=== PATIENT | female | born 1975 | race Caucasian/White ===

== ENCOUNTER 2019-05-27 11:26 | Outpatient (CLI) | payer BC, SELFPAY ==
--- NOTE | ~2019-05-27 | XR_ITS ---
EXAMINATION: XR chest 2V EXAM DATE: 05/27/2019 11:50 INDICATION: Pneumonia, unspecified organism. TECHNIQUE: Frontal and lateral projections of the chest obtained and reviewed. Comparison is made to prior examination from 05/12/2019. FINDINGS: Resolution of previously seen left lower lobe pneumonia. The lungs are clear. There are no pleural effusions. The cardiomediastinal silhouette is within normal limits. There is no pneumotho rax suspected. The bones and soft tissues are unremarkable. IMPRESSION: Normal chest x-ray exam. Reviewed, dictated and finalized at location A. 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
== END 2019-05-27 11:27 | disposition home or self-care (01) ==
LOC: ANHIMG 11:33
PROVIDERS: PCP Internal Medicine; Visit Provider Internal Medicine
DX: J18.9 Pneumonia, unspecified organism (principal)
CPT/HCPCS: 71046

== ENCOUNTER 2019-08-10 13:10 | Outpatient (CLI) | payer BC, SELFPAY ==
--- NOTE | ~2019-08-10 | CT_ITS ---
EXAMINATION: CT abdomen pelvis wo con DATE: 08/10/2019 13:39 INDICATION: Flank pain TECHNIQUE: Computed tomography (CT) of the abdomen and pelvis was performed without intravenous contr ast. Automated exposure control and iterative reconstruction technique were employed. Exam dose: 473 .69 mGy-cm total exam DLP. COMPARISON: None. FINDINGS: There are several small nonobstructing left kidney stones. There are multiple nonobstructin g right kidney stones. No ureteral calculus or hydroureteronephrosis. The urinary bladder, uterus and adnexal areas are unremarkable. Normal heart size. No pericardial or pleural effusion. The lung bases are clear of infiltrate or cons olidation. Calcified left hilar nodes and calcified hepatic and splenic granulomas, consistent with o ld granulomatous disease. Small sliding hiatal hernia. The gallbladder is contracted. No bile duct or pancreatic duct dilatation. Approximately 1.5 cm possible hypoattenuating subtle lesion of the anterior aspect of the lower aspec t of the right hepatic lobe is suggested (series 3 image 71; coronal image 47 series 601). Other subt le hepatic lesions cannot be definitively excluded on this limited noncontrast examination. Further e valuation with intravenous contrast material is recommended Normal caliber of the abdominal aorta. There are scattered nonspecific shotty nonenlarged mesenteric lymph nodes. No intraperitoneal or retroperitoneal or pelvic mass lesion or adenopathy or ascites. There are multiple diverticula of the left colon; no CT evidence of diverticulitis. No CT evidence of appendicitis. No bowel obstruction, pneumatosis or intraperitoneal free air. IMPRESSION: Recommend CT examination with IV contrast material for further evaluation to exclude any possible subtle hepatic lesions Bilateral nonobstructing nephrolithiasis; no ureteral calculus or hydroureteronephrosis Diverticulosis of the left colon; no CT evidence of diverticulitis Reviewed, dictated and finalized at [facility]. Reviewed, dictated and finalized at location A. IMPRESSION: Recommend CT examination with IV contrast material for further cheri luation to exclude any possible subtle hepatic lesions Bilateral nonobstructing nephrolithiasis; no ureteral calculus or hydroureteron ephrosis Diverticulosis of the left colon; no CT evidence of diverticulitis
--- NOTE | ~2019-08-10 | XR_ITS ---
XR abdomen/kub 1V DATE: 08/10/2019 13:36 INDICATION: Flank pain TECHNIQUE: AP projection, 2 views COMPARISON: None FINDINGS: The psoas shadows are intact. No visceromegaly is evident. Significant abnormal calcificati on is not evident radiographically. No evidence of bowel obstruction IMPRESSION: Nonspecific abdomen Reviewed, dictated and finalized at [facility] A. Reviewed, dictated and finalized at location A. IMPRESSION: Nonspecific abdomen
== END 2019-08-10 13:11 | disposition home or self-care (01) ==
PROVIDERS: PCP Internal Medicine; Visit Provider Nurse Practitioner Adult Health
DX: R10.9 Unspecified abdominal pain (principal); N20.0 Calculus of kidney; K57.90 Diverticulosis of intestine, part unspecified, without perforation or abscess without bleeding
CPT/HCPCS: 74018; 74176; 87077; 87086; 87088

== ENCOUNTER 2019-09-08 00:58 | Day surgery (SDC) | payer BC, SELFPAY ==
[2019-09-07 09:57] VITALS: BMI 32.3
[2019-09-08] VITALS (8 sets, daily range): BP systolic 110–159; BP diastolic 67–94; PULSE 90–127; RESP 16–20; TEMP 37.3–37.4; O2SAT 94–98
--- NOTE | ~2019-09-08 | XR_ITS ---
XR abdomen/kub 1V DATE: 09/08/2019 12:14 INDICATION: Lithotripsy. Bilateral nephrolithiasis. TECHNIQUE: AP projection, 2 views COMPARISON: 08/10/2019 CT abdomen pelvis noncontrast examination FINDINGS: Faint subtle small bilateral renal calcifications are again suggested. The psoas shadows are intact. No visceromegaly is evident. No evidence of bowel obstruction. Included skeletal structures are unremarkable. IMPRESSION: Bilateral nephrolithiasis Reviewed, dictated and finalized at Location A. Reviewed, dictated and finalized at location A. IMPRESSION: Bilateral nephrolithiasis
--- NOTE | 2019-09-08 12:52 | WPDANESEPPF ---
Anes - Initial Pre Proc Eval Procedure: Operation Date: 09/08/19 14:00 Proposed Procedures p Left Renal Extracorporeal Shock Wave Lithotripsy - Greg Goff MD Date/Time: 09/08/19 12:52 Surgeon: Greg Goff MD Pre Op Diagnosis: Left Kidney Stone Patient Data Age: 44 Gender: F Height: 5 ft 6 in Weight: 90.9 kg Allergies Allergy/AdvReac Type Severity Reaction Status Date / Time No Known Allergies Allergy Verified 09/07/19 09:56 Home Medications Medication Instructions Recorded Confirmed Type bupropion HCl 300 mg 24 hr tablet, 300 mg PO HS 03/09/19 09/07/19 History extended release alprazolam 0.5 mg tablet 0.5 mg PO BID 03/11/19 09/07/19 History azathioprine 100 mg tablet 100 mg PO DAILY 03/11/19 09/07/19 History ondansetron HCl 8 mg tablet 8 mg PO Q8H 03/11/19 09/07/19 History pantoprazole 40 mg tablet,delayed 40 mg PO QAM 03/11/19 09/07/19 History release trazodone 50 mg tablet 100 mg PO HS tablet 03/11/19 09/07/19 History duloxetine 40 mg capsule,delayed 40 mg PO HS 04/23/19 09/07/19 History release ipratropium bromide [Atrovent HFA] 2 puff INHALATION QID #12.9 gm 05/13/19 09/07/19 Rx pregabalin 100 mg capsule 100 mg PO BID #180 cap 06/09/19 09/07/19 Rx alendronate 70 mg tablet See Rx Instructions .ROUTE 08/25/19 09/07/19 Rx .COMPLEX #12 tablet ferrous sulfate 325 mg (65 mg 325 mg PO DAILY #90 tablet 08/31/19 09/07/19 Rx iron) tablet sumatriptan succinate 6 mg/0.5 mL See Rx Instructions .ROUTE 09/03/19 09/07/19 Rx subcutaneous pen injector .COMPLEX #1 ml abatacept [Orencia ClickJect] 500 mg SUBCUT WEEKLY 09/07/19 09/07/19 History cholecalciferol (vitamin D3) 50 mcg PO DAILY 09/07/19 09/07/19 History cyanocobalamin (vitamin B-12) 1,000 mcg PO DAILY 09/07/19 09/07/19 History lubiprostone [Amitiza] 24 mcg PO BID 09/07/19 09/07/19 History potassium citrate 1,620 mg PO BID 09/07/19 09/07/19 History Patient hx anesthesia problems: none Family hx anesthesia problems: none PMFSH Surgical History Surgical History History of colonoscopy History of knee surgery ANUSHA reconstruction. History of lithotripsy x4. History of tonsillectomy Previous section Family History Family History Mother Patient's mother is in good health Family history of arthritis Father Patient's father is in good health Family history of alcoholism Family history of arthritis Family history of obesity Family history of chronic obstructive pulmonary disease Sibling Patient's sister is in good health Patient's brother is in good health Grandparent Family history of Alzheimer's disease Family history of lung cancer Other Family history of attention deficit hyperactivity disorder (ADHD) Social History Social History Smoking status: Former smoker Smoking end date: 04/22/13 Alcohol intake: current Gender identity (if verbalized by the patient): Female Anes - Eval Final PreProcedure Day of Procedure 09/08/19 12:52 Patient weight: obese Heart: regular rate and rhythm Lungs: clear to auscultation Airway: Mallampati scale class II Neurological: alert and oriented Last oral intake: >/= 8 hours ASA classification: III Emergent: no Anesthetic plan: proceed Anesthesia type and monitoring: general LMA and standard monitoring Informed Consent: The patient's anesthetic plan and its attendant risks and benefits were discussed with the patient/family/POA. Questions were solicited and answers provided to the satisfaction of the patient/family/POA.
[2019-09-08] MEDS: LACTATED RINGERS 1,000 ML 30 ML IV CONT (13:00)
[2019-09-08 13:01] LABS: Hematocrit 38.9 % (37.0-47.0); Hemoglobin 12.5 g/dL (12.0-15.0)
[2019-09-08 13:15] LABS: INR 0.9; Prothrombin Time 11.7 Seconds (11.1-14.7)
[2019-09-08 13:16] LABS: Partial Thromboplastin Time 26.8 SECONDS (22.3-36.8)
--- NOTE | 2019-09-08 13:16 | PM.IMHP ---
H&P: HPI History of Present Illness Chief complaint: Left Kidney Stone Narrative: Madalyn Smith is a 44 year old female well known to Dr. Aguiar who is a recurrent stone former. She had call Dr. Aguiar with left flank pain. CT scan reveals some bilateral nonobstructing stones. The stones on the left are in the upper pole calyx. Patient has had similar issues in the past and has been relieved by lithotripsy of the smaller stones. She now presents for further treatment with lithotripsy. They are difficult to see on plain film and as such will require a retrograde pyelogram in order to locate the upper pole calyx. She understands and wishes to proceed Review of Systems Review of Systems: All systems reviewed & are unremarkable except as noted in HPI and below PMFSH Past Medical History Medical History Abdominal pain in female Abnormal serum lipase level Abnormal weight gain Acute cystitis without hematuria Acute diverticulitis Acute non-recurrent pansinusitis Acute shoulder pain Adult idiopathic generalized osteoporosis Age-related osteoporosis with current pathological fracture, unspecified ankle and foot, initial encounter for fracture Anemia Anxiety Arthralgia Arthritis of both knees Bilateral tinnitus Body mass index (bmi) 39.0-39.9, adult (01/12/19) Bone spur of left foot Chronic migraine Chronic narcotic use Chronic pain syndrome Cyst of ovary Diarrhea Dietary counseling and surveillance (08/25/15) Diverticulitis of large intestine without perforation or abscess Diverticulosis of intestine, part unspecified, without perforation or abscess with bleeding Duodenal ulcer Dysphagia Dysuria Meredith-Danlos syndrome Epigastric pain Establishing care with new doctor, encounter for Fatigue Fear of flying Fibromyalgia Gastric ulcer Gastroesophageal reflux disease Generalized abdominal pain Generalized anxiety disorder History of dislocation of knee History of kidney stones Hyperextension deformity of knee Hyperthyroidism Hypokalemia Hypovitaminosis D Immunosuppressed status Impingement syndrome of right shoulder Irregular menses 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 syndrome with constipation 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 diarrhea longterm use of drug Low back pain Low TSH level Luteal cystic ovary disease Microscopic hematuria Migraine, unspecified, not intractable, without status migrainosus Multinodular goiter Muscle weakness of lower extremity Musculoskeletal pain Nausea Nephrolithiasis Nonintractable migraine Osteoarthritis of spine with radiculopathy, lumbar region Other chronic pain Overweight (11/22/16) Pain in both hands Pain of both hip joints Pain of left heel Pneumonia due to infectious organism Polyuria Prepatellar bursitis of both knees Prepatellar bursitis, left knee PUD (peptic ulcer disease) Rheumatoid arthritis of multiple sites with negative rheumatoid factor Rheumatoid arthritis of unspecified site with involvement of other organs and systems Right lower quadrant abdominal pain Swelling Swelling of finger joint of left hand Thyroid nodule Urinary symptom or sign Urinary tract infection without hematuria Weight loss Yeast vaginitis Surgical History Surgical History History of colonoscopy History of knee surgery ANUSHA reconstruction. History of lithotripsy x4. History of tonsillectomy Previous section Family History Family History Mother Patient's mother is in good health Family history of arthritis Father Patient's father is in good health Family history of alcoholism Family history of arthritis Family history of obesity Family history of chronic obstructive pulmonary disease Sibling Patient's sister is in good health Patient's brother is in good health Grandparent Family history of Alzheimer's disease
--- NOTE | 2019-09-08 14:25 | PM.PROC ---
Procedure Note - Detailed Date of procedure: 09/08/19 Pre-op diagnosis: Left Kidney Stone Post-op diagnosis: same Procedure performed: Cystoscopy, left retrograde pyelogram, left renal ESWL Description of procedure: Patient was taken to the operative suite and correctly identified. Once general anesthesia was obtained she brought the leg position and prepped and draped in usual sterile fashion. A 16 Argentine flexible scope was inserted into the bladder. There were no tumors noted. The left ureteral orifice was visualized and a guidewire was inserted all the way up to the kidney. Scope was removed and a [place] was placed over the guidewire. This allowed us to place contrast to visualize the calices of the left kidney. She was then positioned the flat supine position. Patient had 2 stones in the upper lateral calyx. We injected contrast through the [place] to delineate this calyx. The calyx was localized in both planes. One thousand five hundred shocks were given to this area. We then repositioned the patient as she had another stone in the middle pole calyx. One thousand shocks were given to this calyx. She was taken to recovery room in stable condition. She will follow-up with Dr. Aguiar in 10-14 days with a KUB. Anesthesia: GLMA Surgeon: Greg Goff MD Drains: No Packing: No Pathology: none sent Complications: No immediate complications Condition: stable
--- NOTE | 2019-09-08 16:42 | SUR.PHASEII ---
1640: Called in a new prescription for Tramadol to [facility] since Wyatt Deng was out. Dr. Shell jones and RN gave his cell number to the pharmacist.
== END 2019-09-08 17:10 | disposition home or self-care (01) ==
PROVIDERS: Anesthesiology; PCP Internal Medicine; Visit Provider Urology
PROC: (CPT 50590; principal; 2019-09-08 14:00)
DX: N20.0 Calculus of kidney (principal); M81.8 Other osteoporosis without current pathological fracture; D64.9 Anemia, unspecified; F41.9 Anxiety disorder, unspecified; G89.4 Chronic pain syndrome; Q79.60 Ehlers-Danlos syndrome, unspecified; M79.7 Fibromyalgia; K21.9 Gastro-esophageal reflux disease without esophagitis; E05.90 Thyrotoxicosis, unspecified without thyrotoxic crisis or storm; K58.1 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 syndrome with constipation; M06.9 Rheumatoid arthritis, unspecified; Z87.891 Personal history of nicotine dependence; E66.9 Obesity, unspecified; Z68.34 Body mass index [BMI] 34.0-34.9, adult; Z79.891 Long term (current) use of opiate analgesic
CPT/HCPCS: 50590; 36415; 74018; 85014; 85018; 85610; 85730; A9270; C1758; C1769; J0131; J2250; J3010; J7120; Q9966

== ENCOUNTER 2019-11-06 18:48 | Outpatient (CLI) | payer BC, SELFPAY ==
--- NOTE | ~2019-11-06 | XR_ITS ---
EXAMINATION: XR abdomen/kub 1V DATE: 11/06/2019 19:01 INDICATION: Left posterior abdominal pain. TECHNIQUE: A supine view of the abdomen on 2 radiographs was obtained. COMPARISON: CT abdomen and pelvis 08/10/2019 FINDINGS: There are no dilated loops of bowel. There are multiple stones in right kidney measuring up to 3 mm. There is a 3 mm stone in left kidney upper pole. IMPRESSION: 1. Bilateral kidney stones. Reviewed, dictated and finalized at location A. IMPRESSION: 1. Bilateral kidney stones.
== END 2019-11-06 18:49 | disposition home or self-care (01) ==
LOC: ANHIMG 18:51
PROVIDERS: PCP Internal Medicine; Visit Provider Urology
DX: N20.0 Calculus of kidney (principal)
CPT/HCPCS: 74018

== ENCOUNTER 2019-11-11 12:37 | Outpatient (CLI) | payer BC, SELFPAY ==
--- NOTE | ~2019-11-11 | CT_ITS ---
EXAMINATION: CT abdomen pelvis wo con DATE: 11/11/2019 12:59 INDICATION: Bilateral kidney stones. Back pain. TECHNIQUE: Computed tomography (CT) of the abdomen and pelvis was performed without intravenous contr ast. Automated exposure control and iterative reconstruction technique were employed. The dose-length product was 944.07 mGy-cm. COMPARISON: CT abdomen and pelvis 08/10/2019, 03/10/2018 FINDINGS: The visualized portions of the lung bases demonstrate minimal atelectasis. No pleural effus ion. The heart size is normal. No pericardial effusion. There is a chronic 1.5 cm low-attenuation mas s in segment V of the liver, likely benign. Calcifications in the liver and spleen are consistent wit h old granulomatous disease. The gallbladder, pancreas, and adrenal glands are normal. There is bilat eral medullary nephrocalcinosis. There are at least 10 stones in right kidney measuring up to 4 mm. T here is a 1.4 cm cyst in left kidney. There are 4 stones in left kidney measuring up to 2 mm. No hydr onephrosis. There is diverticulosis of the colon without evidence of diverticulitis. There are no dil ated loops of bowel. The appendix is normal. There are no pathologically enlarged lymph nodes. There is no free intraperitoneal fluid. There is a small sliding hiatal hernia. There is mild thoracolumbar spondylosis. IMPRESSION: 1. Small bilateral nonobstructing kidney stones. 2. Small sliding hiatal hernia. Reviewed, dictated and finalized at location A.
== END 2019-11-11 12:38 | disposition home or self-care (01) ==
LOC: ANHIMG 12:40
PROVIDERS: PCP Internal Medicine; Visit Provider Urology
DX: N20.0 Calculus of kidney (principal); K44.9 Diaphragmatic hernia without obstruction or gangrene
CPT/HCPCS: 74176

== ENCOUNTER → 2020-01-14 15:30 | Outpatient (CLI) | payer BC, SELFPAY ==
--- NOTE | ~2020-01-14 | XR_ITS ---
EXAMINATION: XR ankle RT 2V EXAM DATE: 01/14/2020 16:12 INDICATION: No known recent injury provided at this time. Pain of the right ankle. TECHNIQUE: Frontal and lateral projections of the right ankle. There is no prior study for comparis on. FINDINGS: The ankle mortise appears intact. There are no acute right ankle fractures or dislocations identified. There is no subcutaneous gas. The soft tissue is unremarkable. There are no radiopaq ue foreign bodies. IMPRESSION: 1. Unremarkable right ankle exam. Reviewed, dictated and finalized at location G.
--- NOTE | ~2020-01-14 | XR_ITS ---
EXAMINATION: XR ankle LT 2V EXAM DATE: 01/14/2020 16:12 INDICATION: Left ankle gives out. No known recent injury provided at this time. Pain of the left ankl e. History rheumatoid arthritis. TECHNIQUE: Frontal and lateral projections of the left ankle. Correlation is made to left calcaneus exam 01/06/2018. FINDINGS: There is small inferior left calcaneal spur. The ankle mortise appears intact. There are n o acute fractures or dislocations identified. There is no subcutaneous gas. The soft tissue is unre markable. There are no radiopaque foreign bodies. IMPRESSION: Small left calcaneal inferior spur. Reviewed, dictated and finalized at location G.
--- NOTE | ~2020-01-14 | XR_ITS ---
XR knee RT 3V, XR knee LT 3V 01/14/2020 16:12 Indication: Bilateral knee pain Procedure: 3 views of each knee Comparison: No prior studies for comparison. Findings: There is normal alignment. No significant joint space narrowing. No fracture or traumatic m alalignment. No significant joint effusion. No focal soft tissue abnormalities. No foreign bodies. Impression: 1: No significant bone or joint abnormality. Reviewed, dictated and finalized at location A. Impression: 1: No significant bone or joint abnormality. Impression: 1: No significant bone or joint abnormality.
--- NOTE | ~2020-01-14 | XR_ITS ---
EXAMINATION: XR hip BI wo pelvis EXAM DATE: 01/14/2020 16:12 INDICATION: Bilateral hip pain. TECHNIQUE: Each hip imaged independently (separate right and also left hip) 'frog leg' and frontal p rojections for interpretation. Comparison is made to prior examination from 01/15/2016. FINDINGS: No radiographic evidence of hip avascular necrosis. Symmetric hip and sacroiliac joints wi th joint space is maintained. There are no acute fractures or dislocations identified. There is no s ubcutaneous gas. The soft tissue is unremarkable. There are no radiopaque foreign bodies. IMPRESSION: 1. Unremarkable bilateral hip exam. Reviewed, dictated and finalized at location G.
--- NOTE | ~2020-01-14 | XR_ITS ---
EXAMINATION: XR lumbar spine 2-3V EXAM DATE: 01/14/2020 16:12 INDICATION: Low back pain. TECHNIQUE: Lumber spine frontal, lateral, lateral L5-S1 projections for interpretation. There is no prior study for comparison. FINDINGS: The vertebral bodies are aligned in the AP dimension. Vertebral body and disc heights are w ell-maintained. L5 is a transitional partially sacralized segment. There is mild lower lumbar facet a rthropathy. Sacrum, sacroiliac joints, sacral arcuate lines are intact. Paraspinal soft tissue is unr emarkable. No spondylolysis. IMPRESSION: 1. Transitional L5 segment. 2. Mild facet arthropathy. Reviewed, dictated and finalized at location G.
--- NOTE | ~2020-01-14 | XR_ITS ---
EXAMINATION: XR sacroiliac joints min 3V EXAM DATE: 01/14/2020 16:12 INDICATION: No known recent injury provided at this time. Pain of the sacroiliac joints. TECHNIQUE: Frontal, bilateral oblique projections of the sacroiliac joints. There are no prior studi es for comparison. FINDINGS: Sacroiliac joints are symmetric, without erosion or bony productive changes. L5 segment is transitional, partially sacralized. Sacrum, sacroiliac joints, sacral arcuate lines are intact. The soft tissue is unremarkable. Mild lower lumbar facet arthropathy. IMPRESSION: 1. Unremarkable sacroiliac joints. 2. Mild lower lumbar facet arthropathy. Reviewed, dictated and finalized at location G.
== END ==
PROVIDERS: PCP Internal Medicine; Visit Provider Physician Assistant Medical
DX: M25.571 Pain in right ankle and joints of right foot (principal); G89.29 Other chronic pain; M25.572 Pain in left ankle and joints of left foot; M54.9 Dorsalgia, unspecified; M25.559 Pain in unspecified hip; M77.32 Calcaneal spur, left foot
CPT/HCPCS: 72100; 72202; 73521; 73562; 73600

== ENCOUNTER 2020-03-09 08:20 | Outpatient (NON) | payer BC, SELFPAY ==
[2020-03-09 23:47] LABS: SARS-CoV-2 RNA PCR Negative
== END 2020-03-09 08:21 ==
LOC: ANHCOVIDDT 08:22
PROVIDERS: Visit Provider Internal Medicine
DX: Z20.828 Contact with and (suspected) exposure to other viral communicable diseases (principal)
CPT/HCPCS: 87635; C9803; U0003

== ENCOUNTER 2020-03-11 12:10 | Outpatient (CLI) | payer BC, SELFPAY ==
--- NOTE | ~2020-03-11 | XR_ITS ---
EXAMINATION: XR abdomen/kub 1V EXAM DATE: 03/11/2020 12:26 INDICATION: Bilateral kidney stones. TECHNIQUE: Frontal projection of the upper abdomen, frontal projection lower abdomen/pelvis for inter pretation. Comparison is made to prior examination from 03/08/2020. FINDINGS: There is expected amount of colonic stool and gas. No small bowel dilation, nonobstructiv e bowel gas pattern. Stool overlying both renal contours, with some small calcific densities overlyi ng as well, probably small kidney stones. There is no organomegaly suspected. The bones are unrema rkable. There is no free intraperitoneal air. The lung bases are clear. IMPRESSION: Probable persistent small bilateral kidney stones. Reviewed, dictated and finalized at location A. EDURES TECH
== END 2020-03-11 12:11 | disposition home or self-care (01) ==
PROVIDERS: PCP Internal Medicine; Visit Provider Urology
DX: N20.0 Calculus of kidney (principal)
CPT/HCPCS: 74018

== ENCOUNTER 2020-03-13 14:10 | Outpatient (CLI) | payer BC, SELFPAY ==
--- NOTE | ~2020-03-13 | CT_ITS ---
EXAMINATION: CT abdomen pelvis wo con DATE: 03/13/2020 14:27 INDICATION: Left flank pain TECHNIQUE: Computed tomography (CT) of the abdomen and pelvis was performed without intravenous contr ast. Automated exposure control and iterative reconstruction technique were employed. The dose-length product was 506.37 mGy-cm. COMPARISON: 11/11/2019 FINDINGS: Mild bibasilar atelectasis. Heart size is normal. No pericardial or pleural effusion. Small sliding-t ype hiatal hernia. Tiny hepatic calcification and multiple splenic calcified consistent with old gran ulomatous disease. There are couple chronic low-attenuation lesions in segment 5 of the liver measuri ng approximate 1.6 and 1.1 cm which can be seen appeared slightly smaller dating back to 12/11/2014 an d with avid enhancement on MRI dated 11/27/2016 is consistent with a benign etiology including hemangio ma, focal nodular hyperplasia or hepatic adenoma. Pancreas and bilateral adrenal glands are normal. 1 .3 cm left renal cyst. Bilateral nephrolithiasis with 4 stones measuring up to 2 mm and the left kidn ey and 12 stones in the right kidney measuring up to 5 mm. Several tiny focus of increased attenuatio n along the proximal left ureter which could represent a <1 mm stone. No hydronephrosis. Bladder, [place] randy and bilateral adnexa are unremarkable. There is mild colonic diverticulosis with a sigmoid predom inance. There is no adjacent inflammatory change to suggest diverticulitis. No free intraperitoneal gas or fluid. No pathologically enlarged abdominal or pelvic lymphadenopathy. Mild lumbar spondylosis . IMPRESSION: 1. Bilateral nonobstructing nephrolithiasis with no hydronephrosis. Possible <1 mm stone in the proxi mal left ureter. 2. Small sliding-type hiatal hernia. 3. Mild diverticulosis. Reviewed, dictated and finalized at location . 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 Bilateral nonobstructing nephrolithiasis with no hydronephrosis. Possible <1 mm stone in the proximal left ureter. 2. Small sliding-type hiatal hernia. 3. Mild diverticulosis.
== END 2020-03-13 14:11 | disposition home or self-care (01) ==
LOC: ANHIMG 14:12
PROVIDERS: PCP Internal Medicine; Visit Provider Urology
DX: N20.1 Calculus of ureter (principal); N20.0 Calculus of kidney; K44.9 Diaphragmatic hernia without obstruction or gangrene; K57.90 Diverticulosis of intestine, part unspecified, without perforation or abscess without bleeding
CPT/HCPCS: 74176

== ENCOUNTER 2020-03-15 13:00 | Day surgery (SDC) | payer BC, SELFPAY ==
[2020-03-15] VITALS (7 sets, daily range): BP systolic 105–141; BP diastolic 79–96; PULSE 83–93; RESP 10–18; TEMP 36.3–36.6; O2SAT 96–100; BMI 32.3
--- NOTE | ~2020-03-15 | XR_ITS ---
EXAMINATION: XR fluoroscopy no charge DATE: 03/15/2020 17:54 INDICATION: Left ureteral stone extraction. TECHNIQUE: 4 fluoroscopic images of the abdomen and pelvis were obtained during procedure performed jorden Aguiar. Radiologist was not present for the imaging or procedure. The amount of fluoroscopy janina e used during this procedure was 0.4 minutes. COMPARISON: None. FINDINGS: Small amount of scattered gas in the bowels in a normal bowel gas pattern. No renal or ureteral stone s identified with the previously seen stones in the bilateral kidneys likely too small to be visualiz ed fluoroscopically.. IMPRESSION: 1. No evident nephrolithiasis likely due to small size of the previously noted bilateral renal stones and fluoroscopic technique. Correlate with procedure note for further detail. Reviewed, dictated and finalized at location . 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 No evident nephrolithiasis likely due to small size of the previously noted bilateral renal stones and fluoroscopic technique. Correlate with procedure not e for further detail.
--- NOTE | 2020-03-15 13:34 | WPDANESEPPF ---
Anes - Initial Pre Proc Eval Procedure: Operation Date: 03/15/20 16:45 Proposed Procedures p Cystoscopy, Left Ureteroscopy with Stone Extraction - Jorge Aguiar MD Date/Time: 03/15/20 13:34 Surgeon: Jorge Aguiar MD Pre Op Diagnosis: kidney stones Patient Data Age: 44 Gender: F Height: 1.68 m Weight: 91 kg Allergies Allergy/AdvReac Type Severity Reaction Status Date / Time No Known Allergies Allergy Verified 03/15/20 14:48 Home Medications Medication Instructions Recorded Confirmed Type bupropion HCl 300 mg 24 hr tablet, 300 mg PO HS 03/09/19 03/15/20 History extended release alprazolam 0.5 mg tablet 0.5 mg PO BID 03/11/19 03/15/20 History azathioprine 100 mg tablet 100 mg PO BID 03/11/19 03/15/20 History ondansetron HCl 8 mg tablet 8 mg PO Q8H PRN 03/11/19 03/15/20 History pantoprazole 40 mg tablet,delayed 40 mg PO QAM 03/11/19 03/15/20 History release trazodone 50 mg tablet 50 mg PO HS tablet 03/11/19 03/15/20 History duloxetine 40 mg capsule,delayed 40 mg PO HS 04/23/19 03/15/20 History release ferrous sulfate 325 mg (65 mg 325 mg PO DAILY #90 tablet 08/31/19 03/15/20 Rx iron) tablet abatacept [Orencia ClickJect] 500 mg SUBCUT WEEKLY 09/07/19 03/15/20 History cholecalciferol (vitamin D3) 50 mcg PO DAILY 09/07/19 03/15/20 History cyanocobalamin (vitamin B-12) 1,000 mcg PO DAILY 09/07/19 03/15/20 History potassium citrate 1,620 mg PO BID 09/07/19 03/15/20 History tramadol 100 mg PO Q4-6H PRN #20 tablet 09/08/19 03/15/20 Rx pregabalin 100 mg capsule 100 mg PO BID #180 cap 09/22/19 03/15/20 Rx cetirizine 5 mg-pseudoephedrine ER 1 tablet PO Q12H PRN 10/20/19 03/15/20 History 120 mg tablet,extended release,12hr alendronate 700 mg PO WEEKLY 03/15/20 03/15/20 History ciprofloxacin HCl [Cipro] 500 mg PO Q12H 03/15/20 03/15/20 History hydrocodone-acetaminophen 2 tablet PO Q6-8H PRN 03/15/20 03/15/20 History propranolol 10 mg PO Q12H PRN 03/15/20 03/15/20 History sumatriptan succinate [Imitrex 6 mg SUBCUT BID PRN 03/15/20 03/15/20 History STATdose Pen] Patient hx anesthesia problems: none Family hx anesthesia problems: none PMFSH Past Medical History Medical History (Updated 03/15/20 @ 15:12 by Jorge Aguiar MD) Abdominal pain in female Abnormal serum lipase level Abnormal weight gain Acute cystitis without hematuria Acute diverticulitis Acute non-recurrent pansinusitis Acute shoulder pain Adult idiopathic generalized osteoporosis Age-related osteoporosis with current pathological fracture, unspecified ankle and foot, initial encounter for fracture Anemia Anxiety Arthralgia Arthritis of both knees Bilateral tinnitus Body mass index (bmi) 39.0-39.9, adult (01/12/19) Bone spur of left foot Chronic migraine Chronic narcotic use Chronic pain syndrome Cyst of ovary Diarrhea Dietary counseling and surveillance (08/25/15) Diverticulitis of large intestine without perforation or abscess Diverticulosis of intestine, part unspecified, without perforation or abscess with bleeding Duodenal ulcer Dysphagia Dysuria Meredith-Danlos syndrome Epigastric pain Establishing care with new doctor, encounter for Fatigue Fear of flying Fibromyalgia Gastric ulcer Gastroesophageal reflux disease Generalized abdominal pain Generalized anxiety disorder History of dislocation of knee History of kidney stones Hyperextension deformity of knee Hyperthyroidism Hypokalemia Hypovitaminosis D Immunosuppressed status Impingement syndrome of right shoulder Irregular menses 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 syndrome with constipation 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
[2020-03-15] MEDS: LACTATED RINGERS 1,000 ML 30 ML IV CONT (15:24)
[2020-03-15] MEDS: ceFAZolin 2 GM/D5W 50 ML 2 GM/50 ML BAG IVPB (17:15)
[2020-03-15] MEDS: LIDOCAINE HCL 2% GEL UROJET 10 ML PKG MUCOUS MEM (17:48)
[2020-03-15] MEDS: KETOROLAC 30 MG/ML VIAL (*BKC) IV PUSH (17:54)
--- NOTE | 2020-03-15 18:12 | PM.PROC ---
Procedure Note - Detailed Date of procedure: 03/15/20 Pre-op diagnosis: kidney stones Post-op diagnosis: same Procedure performed: Left ureteroscopy with stone extraction Description of procedure: Patient brought to the operatory she has prepped and draped in routine sterile fashion while in dorsal lithotomy position after the uneventful induction of a general LMA anesthetic. Cystoscopy is undertaken with a 19 F rigid cystoscope. Bladder neck and urethra endoscopically normal. The mucosa is normal without hyperemia. There is no intravesical foreign body or neoplasm. She has a single orthotopic ureteral orifice bilaterally. A 0.035 in glidewire was advanced in the left renal pelvis and the distal ureter is dilated with an 8 F 10 F dilator. Left ureteral re-endoscopy is undertaken with a 7.5 F flexible ureteral scope. Her largest, 2-3 mm stone is identified and extracted with a Zero tip disposable stone basket with ease. Two smaller left renal stones are irrigated with high-pressure irrigant, down the ureter and into the bladder. There later evacuated with a cystoscope. The remainder of the kidney was carefully inspected and found to be without additional significant stones. Anesthesia: GLMA Surgeon: Jorge Aguiar MD Estimated blood loss (mL): 0 Drains: No Packing: No Pathology: yes (Left ureteral stone) Complications: No immediate complications Condition: stable Disposition: PACU
[2020-03-15] MEDS: fentaNYL CITRATE INJ (*CRX) 100 MCG/2 ML VIAL 25 MCG IV PUSH ×6 (18:15→19:27)
[2020-03-15] MEDS: oxyCODONE HCL (*CRX) 5 MG TAB IR PO (19:13)
== END 2020-03-15 20:00 | disposition home or self-care (01) ==
PROVIDERS: PCP Internal Medicine; Visit Provider Urology
PROC: (CPT 52352; principal; 2020-03-15 16:45)
DX: N20.1 Calculus of ureter (principal); M81.0 Age-related osteoporosis without current pathological fracture; D64.9 Anemia, unspecified; G89.4 Chronic pain syndrome; Q79.60 Ehlers-Danlos syndrome, unspecified; M79.7 Fibromyalgia; K21.9 Gastro-esophageal reflux disease without esophagitis; F41.1 Generalized anxiety disorder; E05.90 Thyrotoxicosis, unspecified without thyrotoxic crisis or storm; M06.9 Rheumatoid arthritis, unspecified; Z87.891 Personal history of nicotine dependence; E66.9 Obesity, unspecified; Z68.35 Body mass index [BMI] 35.0-35.9, adult
CPT/HCPCS: 52352; 82365; 88300; A9270; C1769; J0690; J1100; J1885; J2250; J2405; J2704; J3010; J7120; Q9966

== ENCOUNTER 2020-06-16 07:31 | Outpatient (CLI) | payer BC, SELFPAY ==
[2020-06-16 08:19] LABS: Cholesterol 256 mg/dL (0-200); HDL Direct 43 mg/dL; Triglycerides 198 mg/dL (<150)
[2020-06-16 08:20] LABS: Add Urine Microscopic? YES; Appearance Urine Clear (Clear); Bacteria Urine Trace /hpf; Bilirubin Urine 1+ (Negative); Blood Urine 2+ (Negative); Color Urine Amber (Yellow); Glucose Urine UA Negative (Negative); Ketones Urine Trace mg/dL (Negative); Leukocyte Esterase Ur 1+ LEU/UL (NEGATIVE); Mucus Urine Moderate /lpf; Nitrate Urine Negative (Negative); Protein Urine 1+ mg/dL (Negative); RBC Urine 21-50 /hpf (0-2); Specific Grav Ur 1.024 (1.001-1.035); Squamous Epithelial Cell Urine Many /hpf (Few)
[2020-06-16 08:30] LABS: LDL Cholesterol Direct 186 mg/dL
[2020-06-16 08:59] LABS: Vitamin D 25 Hydroxy 46.7 ng/mL
[2020-06-16 09:06] LABS: Iron 69 ug/dL (37-170)
[2020-06-16 09:09] LABS: Thyroid Stimulating Hormone 0.495 uIU/mL (0.465-4.680)
[2020-06-16 09:16] LABS: Percent Iron Saturation 21 % (20-50)
[2020-06-16 09:42] LABS: Folic Acid 11.8 ng/mL (2.76->20)
== END 2020-06-16 07:32 | disposition home or self-care (01) ==
PROVIDERS: PCP Internal Medicine; Referring Provider Physician Assistant; Visit Provider Internal Medicine
DX: E61.1 Iron deficiency (principal); R53.83 Other fatigue; E55.9 Vitamin D deficiency, unspecified
CPT/HCPCS: 36415; 80061; 81001; 82306; 82607; 82746; 83540; 83550; 84443; 87086; 87088

== ENCOUNTER 2020-06-24 11:24 | Outpatient (CLI) | payer BC, SELFPAY ==
--- NOTE | ~2020-06-24 | US_ITS ---
EXAMINATION: US thyroid DATE: 06/24/2020 11:52 INDICATION: Nontoxic single thyroid nodule. TECHNIQUE: Multiple ultrasound images of the thyroid were obtained. COMPARISON: Ultrasound 05/21/2017 FINDINGS: The right thyroid lobe measures 4.6 x 2.0 x 1.5 cm. The left thyroid lobe measures 3.9 x 1.5 x 1.6 c m. In the left thyroid lobe, there is an 8 mm solid, hypoechoic, [id number] nodule with smooth margin without echogenic foci (TI-RADS TR4). IMPRESSION: 1. Stable small thyroid nodule, likely not clinically significant. No follow-up is needed. Reviewed, dictated and finalized at location A. HAND
== END 2020-06-24 11:25 | disposition home or self-care (01) ==
PROVIDERS: PCP Internal Medicine; Visit Provider Physician Assistant
DX: E04.1 Nontoxic single thyroid nodule (principal)
CPT/HCPCS: 76536

== ENCOUNTER 2020-06-26 15:37 | Emergency (ER) | payer BC, SELFPAY ==
--- NOTE | ~2020-06-26 | CT_ITS ---
EXAMINATION: CT abdomen pelvis wo con DATE: 06/26/2020 17:18 INDICATION: Flank pain TECHNIQUE: Computed tomography (CT) of the abdomen and pelvis was performed without intravenous contr ast. The dose-length product (DLP) was 494.86 mGy-cm. Automated exposure control and iterative recons truction technique were employed. COMPARISON: 03/13/2020 04/29/2018 FINDINGS: Minimal dependent atelectasis is present in the lung bases. The heart size is normal. Calci fied left hilar lymph nodes are consistent with old granulomatous disease. Punctate calcifications in an otherwise normal spleen also likely represent healed granulomatous disease. A 1.6 cm lesion in th e right hepatic lobe has previously been demonstrated to be a hemangioma. The pancreas, gallbladder, and adrenal glands are normal. There is a 1.7 cm cyst of the left kidney. There are at least six nono bstructing stones of the right kidney which measure up to 4 mm. There is a 2 mm nonobstructing left k idney stone. No stones are identified in the ureters or bladder. There is no hydronephrosis or hydrou reter. No pathologically enlarged abdominal or pelvic lymph nodes are identified. There is no free in traperitoneal gas or evidence of bowel obstruction. There is a 3.8 cm cyst of the left ovary. Colonic diverticulosis is present without evidence of diverticulitis. IMPRESSION: 1. Bilateral nonobstructing nephrolithiasis. Reviewed, dictated and finalized at location A. IMEN TECHNICIAN
[2020-06-26 15:46] VITALS: BP 138/87; PULSE 88; RESP 18; TEMP 36.1; O2SAT 99
[2020-06-26 16:26] LABS: Basophils Absolute Auto 0.1 K/mm3 (0.0-0.1); Basophils Percent Auto 0.9 % (0.2-1.2); Eosinophils Absolute Auto 0.1 K/mm3 (0-0.3); Eosinophils Percent Auto 1.3 % (0-4.4); Hematocrit 42.5 % (37.0-47.0); Hemoglobin 13.8 g/dL (12.0-15.0); Immature Granulocyte Absolute 0.04 K/mm3 (0.00-0.031); Immature Granulocyte Percent A 0.5 % (0-0.5); Lymphocytes Absolute Auto 1.48 K/mm3 (0.9-3.2); Lymphocytes Percent Auto 19.8 % (18.3-44.2); Mean Corpuscular HGB Conc 32.5 g/dl (32-36); Mean Corpuscular Hemoglobin 30.3 pg (26-34); Mean Corpuscular Volume 93.4 fl (80-100); Mean Platelet Volume 9.3 fl (7.4-10.4); Monocytes Absolute Auto 0.4 K/mm3 (0.1-0.6); Monocytes Percent Auto 4.8 % (2.6-8.5); Neutrophils Absolute Auto 5.4 K/mm3 (1.3-6.7); Neutrophils Percent Auto 72.7 % (45.5-73.1); Platelet Count Result 381 k/mm3 (150-375); Red Blood Count 4.55 M/mm3 (4.2-5.4); Red Cell Distribution Width 15.2 % (11.5-14.5); White Blood Count 7.5 K/mm3 (4.5-10.0)
[2020-06-26 16:30] LABS: Add Urine Microscopic? YES; Appearance Urine Clear (Clear); Bilirubin Urine Negative (Negative); Blood Urine 1+ (Negative); Color Urine Yellow (Yellow); Glucose Urine UA Negative (Negative); Ketones Urine Trace mg/dL (Negative); Leukocyte Esterase Ur Trace LEU/UL (Negative); Mucus Urine Rare /lpf; Nitrate Urine Negative (Negative); Protein Urine 1+ mg/dL (Negative); Specific Grav Ur 1.018 (1.001-1.035); Squamous Epithelial Cell Urine Few /hpf (Few); Urobilinogen Urine Negative mg/dL (<2.0); WBC Urine 0-3 /hpf
[2020-06-26] MEDS: FAMOTIDINE 20 MG/2 ML VIAL IV PUSH (16:52)
[2020-06-26] MEDS: SODIUM CHLORIDE 0.9% IV 1,000 ML 999 ML IV CONT (16:54)
[2020-06-26] MEDS: PROCHLORPERAZINE EDISYLATE 10 MG/2 ML VIAL IM (16:54)
[2020-06-26 17:12] LABS: Anion Gap 6 mmol/L (8-16); Blood Urea Nitrogen 15 mg/dL (7-17); Calcium 9.3 mg/dL (8.4-10.2); Carbon Dioxide 27 mmol/L (22-30); Chloride 103 mmol/L (98-107); Estimated CRCL calculation 90 ml/min; Estimated Glomerular Filt Rate > 60; Glucose 87 mg/dL (65-105); Potassium 4.1 mmol/L (3.4-5.0); Sodium 136 mmol/L (137-145)
[2020-06-26 18:00] VITALS: BP 125/78; PULSE 74; RESP 20; O2SAT 100
--- NOTE | 2020-06-26 18:10 | ED.GENADULT ---
HPI - General Adult General Chief complaint: Unspecified Stated complaint: flank/back and abdominal pain Time Seen by Provider: 06/26/20 16:09 Source: patient Mode of arrival: ambulatory Limitations: no limitations History of Present Illness HPI narrative: Patient is a 45-year-old female who presents to emergency department for evaluation of left flank pain for the last couple of days patient was concerned for possible kidney stone has also had issues with constipation with history of irritable bowel syndrome and was recently taken off of medication that she was immunosuppression. Patient denies vomiting diarrhea rectal bleeding melena URI symptoms or other complaints. On arrival patient appears uncomfortable but in no distress. Patient has not been seen for this complaint Related Data Home Medications Medication Instructions Recorded Confirmed alendronate 70 mg tablet 70 mg PO WEEKLY 05/02/20 06/15/20 bupropion HCl 300 mg 24 hr tablet, 300 mg PO QAM 05/02/20 06/15/20 extended release duloxetine 20 mg capsule,delayed 20 mg PO BID 05/02/20 06/15/20 release ondansetron 8 mg disintegrating 8 mg PO Q12H 05/02/20 06/15/20 tablet pantoprazole 40 mg tablet,delayed 40 mg PO QAM 05/02/20 06/15/20 release potassium citrate 15 mEq (1,620 1,620 mg PO BID 05/02/20 06/15/20 mg) tablet,extended release propranolol 10 mg tablet 10 mg PO Q12H 05/02/20 06/15/20 sumatriptan succinate 6 mg/0.5 mL 6 mg SUBCUT ONCE 05/02/20 06/15/20 subcutaneous cartridge (refill) tamsulosin 0.4 mg capsule 0.4 mg PO DAILY 05/02/20 06/15/20 tramadol 50 mg tablet 50 mg PO Q6H PRN 05/02/20 06/15/20 trazodone 100 mg tablet 100 mg PO BID 05/02/20 06/15/20 azathioprine 50 mg tablet 200 mg PO DAILY tablet 06/14/20 06/15/20 Allergies Allergy/AdvReac Type Severity Reaction Status Date / Time No Known Allergies Allergy Verified 06/26/20 16:01 Review of Systems Review of Systems: All systems reviewed & are unremarkable except as noted in HPI and below PMFSH Past Medical History Medical History (Updated 06/26/20 @ 18:15 by Azeem Beatty PA-C) Abdominal pain in female Abnormal serum lipase level Abnormal weight gain Acute cystitis without hematuria Acute diverticulitis Acute non-recurrent pansinusitis Acute shoulder pain Adult idiopathic generalized osteoporosis Age-related osteoporosis with current pathological fracture, unspecified ankle and foot, initial encounter for fracture Anemia Anxiety Arthralgia Arthritis of both knees Bilateral tinnitus Body mass index (bmi) 39.0-39.9, adult (01/12/19) Bone spur of left foot Chronic migraine Chronic narcotic use Chronic pain syndrome Cyst of ovary Diarrhea Dietary counseling and surveillance (08/25/15) Diverticulitis of large intestine without perforation or abscess Diverticulosis of intestine, part unspecified, without perforation or abscess with bleeding Duodenal ulcer Dysphagia Dysuria Meredith-Danlos syndrome Epigastric pain Establishing care with new doctor, encounter for Fatigue Fear of flying Fibromyalgia Gastric ulcer Gastroesophageal reflux disease Generalized abdominal pain Generalized anxiety disorder History of dislocation of knee History of kidney stones Hyperextension deformity of knee Hyperthyroidism Hypokalemia Hypovitaminosis D Immunosuppressed status Impingement syndrome of right shoulder Irregular menses 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 syndrome with constipation 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 diarrhea 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
[2020-06-26] MEDS: KETOROLAC 30 MG/ML VIAL (*BKC) IV PUSH (18:11)
[2020-06-26 18:41] VITALS: BP 125/78; PULSE 74; RESP 20; O2SAT 100
== END 2020-06-26 18:42 | disposition home or self-care (01) ==
PROVIDERS: Emergency Medicine; Emergency Provider Emergency Medicine; PCP Internal Medicine
DX: R10.9 Unspecified abdominal pain (principal); F41.9 Anxiety disorder, unspecified; M17.0 Bilateral primary osteoarthritis of knee; G89.4 Chronic pain syndrome; Q79.60 Ehlers-Danlos syndrome, unspecified; M79.7 Fibromyalgia; K21.9 Gastro-esophageal reflux disease without esophagitis; E05.90 Thyrotoxicosis, unspecified without thyrotoxic crisis or storm; E55.9 Vitamin D deficiency, unspecified; K58.1 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 syndrome with constipation; E04.2 Nontoxic multinodular goiter; M47.26 Other spondylosis with radiculopathy, lumbar region; E66.3 Overweight; Z68.34 Body mass index [BMI] 34.0-34.9, adult; K57.90 Diverticulosis of intestine, part unspecified, without perforation or abscess without bleeding; Z87.11 Personal history of peptic ulcer disease; M06.89 Other specified rheumatoid arthritis, multiple sites; Z87.440 Personal history of urinary (tract) infections; Z87.442 Personal history of urinary calculi; Z87.891 Personal history of nicotine dependence
CPT/HCPCS: 36415; 74176; 80048; 81001; 81025; 85025; 96361; 96365; 96372; 96375; 99284; J0131; J0780; J1885; J7030

== ENCOUNTER 2020-06-30 14:15 | Outpatient (CLI) | payer BC, SELFPAY | END 2020-06-30 14:16 | disposition home or self-care (01) | LOC: ANHCOVIDVC 14:15 | PROVIDERS: PCP Internal Medicine | DX: Z23 Encounter for immunization (principal) | CPT/HCPCS: 0001A; 91300 ==

== ENCOUNTER 2020-07-21 14:15 | Outpatient (CLI) | payer BC, SELFPAY | END 2020-07-21 14:16 | disposition home or self-care (01) | LOC: ANHCOVIDVC 14:15 | PROVIDERS: PCP Internal Medicine | DX: Z23 Encounter for immunization (principal) | CPT/HCPCS: 0002A; 91300 ==

== ENCOUNTER → 2020-09-19 01:58 | Outpatient (CLI) | payer BC, SELFPAY ==
[2020-09-19 17:04] LABS: SARS-CoV-2 RNA PCR Negative
== END ==
PROVIDERS: PCP Internal Medicine; Visit Provider Internal Medicine Gastroenterology
DX: Z01.812 Encounter for preprocedural laboratory examination (principal); Z20.822 Contact with and (suspected) exposure to COVID-19
CPT/HCPCS: C9803; U0003; U0005

== ENCOUNTER 2020-09-22 00:17 | Day surgery (SDC) | payer BC, SELFPAY ==
[2020-09-15 09:52] VITALS: BMI 30.6
[2020-09-22 10:04] VITALS: BP 113/74; PULSE 80; RESP 18; TEMP 35.8; O2SAT 100; BMI 32.5
[2020-09-22] MEDS: LACTATED RINGERS 1,000 ML 150 ML IV CONT (10:15)
--- NOTE | 2020-09-22 10:33 | WPDANESEPPF ---
Anes - Initial Pre Proc Eval Procedure: Operation Date: 09/22/20 12:00 Proposed Procedures p Screening Colonoscopy - Toi Fair DO Date/Time: 09/22/20 10:33 Surgeon: Toi Fair DO Pre Op Diagnosis: neoplasm screening Patient Data Age: 45 Gender: F Height: 5 ft 6 in Weight: 91.3 kg Last Vital Signs Temp 96.4 F L 09/22/20 10:04 Pulse 80 09/22/20 10:04 Resp 18 09/22/20 10:04 BP 113/74 09/22/20 10:04 Pulse Ox 100 09/22/20 10:04 Allergies Allergy/AdvReac Type Severity Reaction Status Date / Time No Known Allergies Allergy Verified 09/22/20 10:03 Home Medications Medication Instructions Recorded Confirmed Type bupropion HCl 300 mg 24 hr tablet, 300 mg PO QPM 05/02/20 09/22/20 History extended release duloxetine 20 mg capsule,delayed 40 mg PO HS 05/02/20 09/22/20 History release ondansetron 8 mg disintegrating 8 mg PO Q12H PRN 05/02/20 09/15/20 History tablet potassium citrate 15 mEq (1,620 1,620 mg PO BID 05/02/20 09/22/20 History mg) tablet,extended release propranolol 10 mg tablet 10 mg PO QAM 05/02/20 09/22/20 History tamsulosin 0.4 mg capsule 0.4 mg PO DAILY PRN 05/02/20 09/22/20 History tramadol 50 mg tablet 50 mg PO Q6H PRN 05/02/20 09/22/20 History trazodone 100 mg tablet 100 mg PO HS 05/02/20 09/22/20 History azathioprine 50 mg tablet 100 mg PO BID tablet 06/14/20 09/22/20 History sumatriptan succinate 6 mg/0.5 mL See Rx Instructions .ROUTE 07/05/20 09/22/20 Rx subcutaneous pen injector .COMPLEX #2 ml alprazolam 1 mg PO BID 09/15/20 09/15/20 History cholecalciferol (vitamin D3) 5,000 unit PO DAILY 09/15/20 09/22/20 History [Vitamin D3] cyanocobalamin (vitamin B-12) 1,000 mcg PO DAILY 09/15/20 09/22/20 History lactobacillus combo no.13 1 cap PO DAILY 09/15/20 09/22/20 History [Probiotic Pearls Complete] Patient hx anesthesia problems: none Family hx anesthesia problems: none PMFSH Past Medical History Medical History Abdominal pain in female Abnormal serum lipase level Abnormal weight gain Acute cystitis without hematuria Acute diverticulitis Acute non-recurrent pansinusitis Acute shoulder pain Adult idiopathic generalized osteoporosis Age-related osteoporosis with current pathological fracture, unspecified ankle and foot, initial encounter for fracture Anemia Anxiety Arthralgia Arthritis of both knees Bilateral tinnitus Body mass index (bmi) 39.0-39.9, adult (01/12/19) Bone spur of left foot Chronic migraine Chronic narcotic use Chronic pain syndrome Cyst of ovary Diarrhea Dietary counseling and surveillance (08/25/15) Diverticulitis of large intestine without perforation or abscess Diverticulosis of intestine, part unspecified, without perforation or abscess with bleeding Duodenal ulcer Dysphagia Dysuria Meredith-Danlos syndrome Epigastric pain Establishing care with new doctor, encounter for Fatigue Fear of flying Fibromyalgia Gastric ulcer Gastroesophageal reflux disease Generalized abdominal pain Generalized anxiety disorder History of dislocation of knee History of kidney stones Hyperextension deformity of knee Hyperthyroidism Hypokalemia Hypovitaminosis D Immunosuppressed status Impingement syndrome of right shoulder Irregular menses 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 syndrome with constipation 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
--- NOTE | 2020-09-22 11:26 | WPDGICN ---
GI Consult Note Consult date/time: 09/22/20 11:26 HPI: Here have a very pleasant lady that is here for colonoscopy. Very pleasant lady seen at the request of the primary physician. Impression: Here in very pleasant lady with a history of chronic constipation. This is most likely due to chronic idiopathic constipation and IBS with constipation. This May be exacerbated by underlying medication use. Family history of IBD. Diverticulitis by history. Anxiety. Multiple other issues. Recommendation: Colonoscopy. History: This very pleasant lady's here for chronic constipation. She has a family history of Crohn's disease. Patient has been having difficulty with defecation. She may go indefinitely without a bowel movement. She has at times noted small polyp like stools. She rectal bleeding is also reported. This usually consists of bright red blood per rectum. However, she occasionally has dark red blood. She has here for colonoscopy. Physical examination: General: very pleasant patient in no acute distress. HEENT: Head was normocephalic sclerae is clear mouth without masses neck was supple. Heart: Rate rhythm regular without S3 or S4. Lungs: CTA. Abdomen: Soft with no guarding or rigidity. Bowel sounds were active. Neurologic: Cranial nerves 2 through 12 intact. No focal defects. No clonus. Musculoskeletal system: Revealed no joint tenderness or swelling no muscle atrophy. Extremities: Reveal no significant edema. Skin: Warm and dry with normal turgor. Mental status: intact. Patient is alert and oriented. Review of Systems Review of Systems: All systems reviewed & are unremarkable except as noted in HPI and below [facility] Past Medical History Medical History Abdominal pain in female Abnormal serum lipase level Abnormal weight gain Acute cystitis without hematuria Acute diverticulitis Acute non-recurrent pansinusitis Acute shoulder pain Adult idiopathic generalized osteoporosis Age-related osteoporosis with current pathological fracture, unspecified ankle and foot, initial encounter for fracture Anemia Anxiety Arthralgia Arthritis of both knees Bilateral tinnitus Body mass index (bmi) 39.0-39.9, adult (01/12/19) Bone spur of left foot Chronic migraine Chronic narcotic use Chronic pain syndrome Cyst of ovary Diarrhea Dietary counseling and surveillance (08/25/15) Diverticulitis of large intestine without perforation or abscess Diverticulosis of intestine, part unspecified, without perforation or abscess with bleeding Duodenal ulcer Dysphagia Dysuria Meredith-Danlos syndrome Epigastric pain Establishing care with new doctor, encounter for Fatigue Fear of flying Fibromyalgia Gastric ulcer Gastroesophageal reflux disease Generalized abdominal pain Generalized anxiety disorder History of dislocation of knee History of kidney stones Hyperextension deformity of knee Hyperthyroidism Hypokalemia Hypovitaminosis D Immunosuppressed status Impingement syndrome of right shoulder Irregular menses 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 syndrome with constipation 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 diarrhea 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 Low back pain Low TSH level Luteal cystic ovary disease Microscopic hematuria Migraine, unspecified, not intractable, without status migrainosus Multinodular goiter Muscle weakness of lower extremity Musculoskeletal pain Nausea Nephrolithiasis Nonintractable migraine Osteoarthritis of spine with radiculopathy, lumbar region Other chronic pain Overweight (11/22/16) Pain in both hands Pain of both hip joints Pain of left heel Pneumonia due to infectious organism Polyuria Prepatellar bursitis of both knees Prepatellar bursitis, left knee PUD (peptic ulcer disease) Rheumatoid arthritis of multiple sites with negative rheumatoid factor Rheumatoid arthritis of unspecified site with involvement of other organs and systems Right l
[2020-09-22 12:04] VITALS: BP 99/54; PULSE 61; RESP 17; O2SAT 99
[2020-09-22 12:14] VITALS: BP 105/63; PULSE 58; RESP 17; O2SAT 99
[2020-09-22 12:24] VITALS: BP 101/72; PULSE 62; RESP 20; O2SAT 100
== END 2020-09-22 12:30 | disposition home or self-care (01) ==
PROVIDERS: PCP Internal Medicine; Visit Provider Internal Medicine Gastroenterology
PROC: 0DJD8ZZ Inspection of Lower Intestinal Tract, Via Natural or Artificial Opening Endoscopic (ICD-10-PCS; CPT 45378; principal; 2020-09-22 12:00)
DX: K59.09 Other constipation (principal); K58.1 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 syndrome with constipation; D17.5 Benign lipomatous neoplasm of intra-abdominal organs; K57.30 Diverticulosis of large intestine without perforation or abscess without bleeding; F41.9 Anxiety disorder, unspecified; M81.0 Age-related osteoporosis without current pathological fracture; D64.9 Anemia, unspecified; G89.4 Chronic pain syndrome; M79.7 Fibromyalgia; K21.9 Gastro-esophageal reflux disease without esophagitis; F41.1 Generalized anxiety disorder; E05.90 Thyrotoxicosis, unspecified without thyrotoxic crisis or storm; E55.9 Vitamin D deficiency, unspecified; E04.2 Nontoxic multinodular goiter; M06.89 Other specified rheumatoid arthritis, multiple sites; Z87.11 Personal history of peptic ulcer disease; Z87.891 Personal history of nicotine dependence; F12.90 Cannabis use, unspecified, uncomplicated; E66.9 Obesity, unspecified; Z68.32 Body mass index [BMI] 32.0-32.9, adult
CPT/HCPCS: 45378; J2704; J7120

== ENCOUNTER 2020-09-28 16:44 | Emergency (ER) | payer BC, SELFPAY ==
[2020-09-28 16:47] VITALS: BP 122/89; PULSE 85; RESP 16; TEMP 36; O2SAT 98
[2020-09-28 17:09] LABS: Basophils Absolute Auto 0.1 K/mm3 (0.0-0.1); Basophils Percent Auto 1.4 % (0.2-1.2); Eosinophils Absolute Auto 0.1 K/mm3 (0-0.3); Eosinophils Percent Auto 1.1 % (0-4.4); Hematocrit 46.6 % (37.0-47.0); Immature Granulocyte Absolute 0.09 K/mm3 (0.00-0.031); Immature Granulocyte Percent A 1.3 % (0-0.5); Lymphocytes Percent Auto 18.2 % (18.3-44.2); Mean Corpuscular HGB Conc 32.2 g/dl (32-36); Mean Corpuscular Hemoglobin 30.7 pg (26-34); Mean Corpuscular Volume 95.3 fl (80-100); Mean Platelet Volume 9.1 fl (7.4-10.4); Monocytes Absolute Auto 0.5 K/mm3 (0.1-0.6); Monocytes Percent Auto 6.3 % (2.6-8.5); Neutrophils Absolute Auto 5.1 K/mm3 (1.3-6.7); Neutrophils Percent Auto 71.7 % (45.5-73.1); Platelet Count Result 356 k/mm3 (150-375); Red Blood Count 4.89 M/mm3 (4.2-5.4); Red Cell Distribution Width 14.6 % (11.5-14.5); White Blood Count 7.2 K/mm3 (4.5-10.0)
[2020-09-28 17:18] LABS: Add Urine Microscopic? YES; Appearance Urine Clear (Clear); Bacteria Urine Trace /hpf; Bilirubin Urine Negative (Negative); Blood Urine 1+ (Negative); Color Urine Amber (Yellow); Glucose Urine UA Negative (Negative); Ketones Urine Negative (Negative); Leukocyte Esterase Ur Negative LEU/UL (Negative); Mucus Urine Rare /lpf; Nitrate Urine Negative (Negative); Protein Urine 1+ mg/dL (Negative); Specific Grav Ur 1.018 (1.001-1.035); Squamous Epithelial Cell Urine Many /hpf (Few); WBC Urine 0-3 /hpf
--- NOTE | 2020-09-28 18:34 | PC.NURSE ---
Green top hemolyzed per laboratory, multi RN and tech attempted redraw - unsuccessful.
--- NOTE | 2020-09-28 19:46 | PC.NURSE ---
Pt spouse came to intake desk and asked where the pt was in the line. Spouse stated we havent moved in the line in over an hour and we are leaving. Take us off of the list. Pt and spouse then seen ambulatory out of the exit.
== END 2020-09-28 19:48 | disposition left against medical advice (07) ==
PROVIDERS: Emergency Provider Emergency Medicine; PCP Internal Medicine
DX: R10.31 Right lower quadrant pain (principal)
CPT/HCPCS: 36415; 81001; 85025; 99199

== ENCOUNTER 2020-09-29 00:22 | Emergency (ER) | payer BC, SELFPAY ==
--- NOTE | ~2020-09-29 | CT_ITS ---
EXAMINATION: CT abdomen pelvis w con EXAM DATE: 09/29/2020 02:47 INDICATION: Right-sided low abdominal pain. TECHNIQUE: Spiral CT of the abdomen and pelvis was performed following intravenous injection of 100 m L Omnipaque 350. Axial, coronal and sagittal images of the abdomen and pelvis were reviewed. The do se-length product (DLP) for this examination was 1012.53 mGy-cm. The exposure was tailored according to patient size (auto mA exposure control), and iterative reconstruction (ASIR) was used as addition al dose reduction technique. Comparison is made to prior examination from 06/26/2020, 03/13/2020. FINDINGS: There is 1.5 cm hyperenhancing lesion in segment 5 of the liver, another adjacent smaller s imilar-appearing lesion. These are better visualized on this exam than on prior study in 2019 due to differences in phase of imaging. Most likely hemangiomata. The liver, spleen, adrenal glands and coker creas are otherwise unremarkable. Gallbladder is unremarkable. No biliary obstruction. Portal and splenic veins are patent. Kidneys enhance symmetrically. There is no hydronephrosis. Bilateral smal l nonobstructing calyceal stones. The uterus is anteverted and morphologically normal. The bladder is unremarkable. There is no retroperitoneal or pelvic lymphadenopathy. The appendix is normal. There is small sliding gastroesophageal hiatal hernia. There is mild scatter ed colonic diverticulosis. There is no adjacent inflammatory change to suggest diverticulitis. No f ree intraperitoneal gas. The heart is normal in size. There are no pericardial or pleural effusion s. There our right lower lobe faint groundglass opacities most consistent with nonspecific pneumonitis, possibly acute infectious process. There are no osteoblastic or osteolytic lesions identified. IMPRESSION: 1. Right basilar small groundglass tree-in-bud pattern nodular opacities, nonspecific pneumonitis bu t could be acute infectious process. Please clinically correlate. 2. Mild colonic diverticulosis. 3. Small bilateral nephrolithiasis. 4. Benign liver lesions 5. Small hiatal hernia. Reviewed, dictated and finalized at location A. IMPRESSION: 1. Right basilar small groundglass tree-in-bud pattern nodular opacities, nons pecific pneumonitis but could be acute infectious process. Please clinically co rrelate. 2. Mild colonic diverticulosis. 3. Small bilateral nephrolithiasis. 4. Benign liver lesions 5. Small hiatal hernia.
[2020-09-29 00:25] VITALS: BP 127/70; PULSE 94; RESP 16; TEMP 36.1; O2SAT 100
--- NOTE | 2020-09-29 01:46 | ED.ABDPAIN ---
HPI - Abdominal Pain General Chief Complaint: Abdominal Pain Stated Complaint: abd pain x 2 days, decrease po intake Time Seen by Provider: 09/29/20 01:29 Source: patient and RN notes reviewed Mode of arrival: ambulatory Limitations: no limitations History of Present Illness HPI narrative: This is a 45 year old Caucasion female with history of IBS with constipation who presents for evaluation of right lower abdominal pain that started on Saturday. She describes pain as constand, nonradiating dull ache. She has associated nausea and diarrhea with her pain. She states her nausea is chronic and she did have an episode of vomiting today. She denies fever or chills. She states this pain does not feel like her previous kidney stones. She reports chronic left lower abdominal pain but this pain is new. She states she called Dr. Fair's office today since she had a colonoscopy performed 1 week ago. She was told her colonoscopy looked fine and she did not have any biopsies. Related Data Home Medications Medication Instructions Recorded Confirmed bupropion HCl 300 mg 24 hr tablet, 300 mg PO QPM 05/02/20 09/22/20 extended release duloxetine 20 mg capsule,delayed 40 mg PO HS 05/02/20 09/22/20 release ondansetron 8 mg disintegrating 8 mg PO Q12H PRN 05/02/20 09/15/20 tablet potassium citrate 15 mEq (1,620 1,620 mg PO BID 05/02/20 09/22/20 mg) tablet,extended release propranolol 10 mg tablet 10 mg PO QAM 05/02/20 09/22/20 tamsulosin 0.4 mg capsule 0.4 mg PO DAILY PRN 05/02/20 09/22/20 tramadol 50 mg tablet 50 mg PO Q6H PRN 05/02/20 09/22/20 trazodone 100 mg tablet 100 mg PO HS 05/02/20 09/22/20 azathioprine 50 mg tablet 100 mg PO BID tablet 06/14/20 09/22/20 alprazolam 1 mg PO BID 09/15/20 09/15/20 cholecalciferol (vitamin D3) 5,000 unit PO DAILY 09/15/20 09/22/20 [Vitamin D3] cyanocobalamin (vitamin B-12) 1,000 mcg PO DAILY 09/15/20 09/22/20 lactobacillus combo no.13 1 cap PO DAILY 09/15/20 09/22/20 [Probiotic Pearls Complete] Allergies Allergy/AdvReac Type Severity Reaction Status Date / Time No Known Allergies Allergy Verified 09/29/20 00:24 Review of Systems Review of Systems: All systems reviewed & are unremarkable except as noted in HPI and below PMFSH Past Medical History Medical History (Updated 09/29/20 @ 04:00 by Bri Ugarte MD) Abdominal pain in female Abnormal serum lipase level Abnormal weight gain Acute cystitis without hematuria Acute diverticulitis Acute non-recurrent pansinusitis Acute shoulder pain Adult idiopathic generalized osteoporosis Age-related osteoporosis with current pathological fracture, unspecified ankle and foot, initial encounter for fracture Anemia Anxiety Arthralgia Arthritis of both knees Bilateral tinnitus Body mass index (bmi) 39.0-39.9, adult (01/12/19) Bone spur of left foot Chronic migraine Chronic narcotic use Chronic pain syndrome Cyst of ovary Diarrhea Dietary counseling and surveillance (08/25/15) Diverticulitis of large intestine without perforation or abscess Diverticulosis of intestine, part unspecified, without perforation or abscess with bleeding Duodenal ulcer Dysphagia Dysuria Meredith-Danlos syndrome Epigastric pain Establishing care with new doctor, encounter for Fatigue Fear of flying Fibromyalgia Gastric ulcer Gastroesophageal reflux disease Generalized abdominal pain Generalized anxiety disorder History of dislocation of knee History of kidney stones Hyperextension deformity of knee Hyperthyroidism Hypokalemia Hypovitaminosis D Immunosuppressed status Impingement syndrome of right shoulder Irregular menses 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 syndrome with constipation 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 diarrhea custodial use of drug Low back pain Low TSH level Luteal cystic ovary disease Microscopic hematuria Migraine, unspecified, not intractable, without status migrainosus Multinodular goiter Muscle weakness of lower extremity Musculoskeletal wenceslao
[2020-09-29 02:09] LABS: Basophils Absolute Auto 0.1 K/mm3 (0.0-0.1); Basophils Percent Auto 1.5 % (0.2-1.2); Eosinophils Absolute Auto 0.2 K/mm3 (0-0.3); Eosinophils Percent Auto 2.4 % (0-4.4); Hematocrit 42.2 % (37.0-47.0); Hemoglobin 13.9 g/dL (12.0-15.0); Immature Granulocyte Absolute 0.08 K/mm3 (0.00-0.031); Immature Granulocyte Percent A 1.2 % (0-0.5); Lymphocytes Absolute Auto 1.86 K/mm3 (0.9-3.2); Lymphocytes Percent Auto 27.4 % (18.3-44.2); Mean Corpuscular HGB Conc 32.9 g/dl (32-36); Mean Corpuscular Hemoglobin 30.9 pg (26-34); Mean Corpuscular Volume 93.8 fl (80-100); Mean Platelet Volume 9.3 fl (7.4-10.4); Monocytes Absolute Auto 0.5 K/mm3 (0.1-0.6); Neutrophils Percent Auto 59.5 % (45.5-73.1); Platelet Count Result 330 k/mm3 (150-375); Red Cell Distribution Width 14.4 % (11.5-14.5); White Blood Count 6.8 K/mm3 (4.5-10.0)
[2020-09-29 02:18] LABS: Alanine Aminotransferase 43 U/L (4-35); Alkaline Phosphatase 62 U/L (38-126); Anion Gap 11 mmol/L (8-16); Aspartate Amino Transferase 33 U/L (14-36); Bilirubin,Total 0.4 mg/dL (0.2-1.3); Blood Urea Nitrogen 12 mg/dL (7-17); Carbon Dioxide 23 mmol/L (22-30); Chloride 105 mmol/L (98-107); Estimated CRCL calculation 77 ml/min; Estimated Glomerular Filt Rate > 60; Glucose 94 mg/dL (65-105); Lipase 409 U/L (23-300); Potassium 3.4 mmol/L (3.4-5.0); Sodium 139 mmol/L (137-145)
[2020-09-29 04:09] VITALS: BP 125/70; PULSE 78; RESP 16; O2SAT 100
== END 2020-09-29 04:10 | disposition home or self-care (01) ==
PROVIDERS: Emergency Provider General Practice; PCP Internal Medicine
DX: R10.31 Right lower quadrant pain (principal); M17.0 Bilateral primary osteoarthritis of knee; G89.4 Chronic pain syndrome; Q79.60 Ehlers-Danlos syndrome, unspecified; M79.7 Fibromyalgia; K21.9 Gastro-esophageal reflux disease without esophagitis; F41.1 Generalized anxiety disorder; E05.90 Thyrotoxicosis, unspecified without thyrotoxic crisis or storm; E55.9 Vitamin D deficiency, unspecified; K58.1 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 syndrome with constipation; M06.9 Rheumatoid arthritis, unspecified; M47.816 Spondylosis without myelopathy or radiculopathy, lumbar region; Z87.01 Personal history of pneumonia (recurrent); Z86.2 Personal history of diseases of the blood and blood-forming organs and certain disorders involving the immune mechanism; Z86.711 Personal history of pulmonary embolism; Z87.440 Personal history of urinary (tract) infections; Z87.442 Personal history of urinary calculi; Z87.891 Personal history of nicotine dependence; N83.201 Unspecified ovarian cyst, right side; K57.90 Diverticulosis of intestine, part unspecified, without perforation or abscess without bleeding; N20.0 Calculus of kidney; K76.9 Liver disease, unspecified; K44.9 Diaphragmatic hernia without obstruction or gangrene; R91.8 Other nonspecific abnormal finding of lung field
CPT/HCPCS: 36415; 74177; 80053; 81025; 83690; 85025; 99284; Q9967

== ENCOUNTER 2021-01-08 16:58 | Emergency (ER) | payer BC, SELFPAY ==
--- NOTE | 2021-01-08 19:11 | PC.NURSE ---
Called back for triage at 1910, no answer.
--- NOTE | 2021-01-08 19:14 | PC.NURSE ---
Patient left ED, seen leaving the department.
== END 2021-01-08 19:29 | disposition left against medical advice (07) ==
LOC: ANHED 19:20
DX: Z53.21 Procedure and treatment not carried out due to patient leaving prior to being seen by health care provider (principal)
CPT/HCPCS: 99199

== ENCOUNTER 2021-01-08 22:10 | Emergency (ER) | payer BC, SELFPAY ==
--- NOTE | ~2021-01-08 | CT_ITS ---
EXAMINATION: CTA chest PE abdomen pel DATE: 01/09/2021 00:08 INDICATION: Chest pain. Abdominal pain. TECHNIQUE: Computed tomography angiography (CTA) of the chest was performed with 100 mL Omnipaque-350 intravenous contrast timed to evaluate the pulmonary arteries. Coronal maximum intensity projection 3D-reconstructions were created by the technologist. Computed tomography (CT) of the abdomen and pelv is was performed with intravenous contrast. Automated exposure control and iterative reconstruction t echnique were employed. The dose-length product was 1334.60 mGy-cm. COMPARISON: CT abdomen and pelvis 09/29/2020, 12/25/2018 FINDINGS: CTA chest: The lungs demonstrate mild dependent atelectasis. Calcified left lung nodules and calcifie d left hilar lymph nodes are consistent with old granulomatous disease. No pleural effusion. There is a small sliding hiatal hernia. The heart size is normal. No pericardial effusion. There is no pulmon anyi embolus. Thoracic aorta is normal in caliber. CT abdomen and pelvis: In the right hepatic lobe, there are two chronic hyperenhancing masses measuri ng up to 2.1 cm, likely hemangiomas or focal nodular hyperplasia. There are cysts in the liver measur ing up to 7 mm. The gallbladder is normal. Calcifications in the spleen are consistent with old granu lomatous disease. The pancreas and adrenal glands are normal. There are cysts in the kidneys measurin g up to 2.0 cm on the left. There are at least 10 stones in right kidney measuring up to 3 mm. There are multiple 1-2 mm stones in left kidney. Abdominal aorta is normal in caliber. There is diverticulo sis of the colon without evidence of diverticulitis. There are no dilated loops of bowel. The appendi x is normal. There are no pathologically enlarged lymph nodes. There is no free intraperitoneal fluid . There is mild lumbar spondylosis. IMPRESSION: 1. No pulmonary embolus. 2. Small sliding hiatal hernia. 3. Small bilateral nonobstructing kidney stones. Reviewed, dictated and finalized at location A.
[2021-01-08 22:17] VITALS: BP 144/83; PULSE 78; RESP 17; TEMP 36.4; O2SAT 97
--- NOTE | 2021-01-08 22:24 | ECG_ITS ---
Measurements Intervals [place] Rate: 71 P: 241 IL: 126 QRS: 32 QRSD: 89 T: 34 QT: 397 QTc: 433 Interpretive Statements ECTOPIC ATRIAL RHYTHM EARLY PRECORDIAL R/S TRANSITION BASELINE ARTIFACT- I, III ABNORMAL ECG Electronically Signed On 01-09-2021 6:03:42 CDT by Armando Herrera D.O.
[2021-01-08 22:41] VITALS: PULSE 80; RESP 13; O2SAT 97
--- NOTE | 2021-01-08 22:43 | ED.GENADULT ---
HPI - General Adult General Chief complaint: Abdominal Pain Stated complaint: Diarrhea for a couple weeks, abd and chest pain Time Seen by Provider: 01/08/21 22:14 History of Present Illness HPI narrative: Patient is a 45-year-old female presents the emergency department with chief complaint of abdominal pain and diarrhea. Patient reports that she has history of rheumatoid arthritis and also has irritable bowel. The patient states that she has been having diarrhea for several weeks reports that today her abdomen started hurting more reports pain in the epigastrium and left side of her abdomen. Patient states the pain is worse with movement and improved with rest patient also reports she has been having a sharp pain in her left side of her chest that shoots to her back patient states intermittent reports does not improve by anything or is worsened by anything. Patient reports that she has history of Erler Danlos and has not had her surveillance CT scan in the last year. Patient denies shortness of breath reports she is had nausea and has had some episodes of vomiting with this the patient denies fever. Related Data Home Medications Medication Instructions Recorded Confirmed bupropion HCl 300 mg 24 hr tablet, 300 mg PO QPM 05/02/20 09/22/20 extended release duloxetine 20 mg capsule,delayed 40 mg PO HS 05/02/20 09/22/20 release ondansetron 8 mg disintegrating 8 mg PO Q12H PRN 05/02/20 09/15/20 tablet potassium citrate 15 mEq (1,620 1,620 mg PO BID 05/02/20 09/22/20 mg) tablet,extended release propranolol 10 mg tablet 10 mg PO QAM 05/02/20 09/22/20 tamsulosin 0.4 mg capsule 0.4 mg PO DAILY PRN 05/02/20 09/22/20 tramadol 50 mg tablet 50 mg PO Q6H PRN 05/02/20 09/22/20 trazodone 100 mg tablet 100 mg PO HS 05/02/20 09/22/20 azathioprine 50 mg tablet 100 mg PO BID tablet 06/14/20 09/22/20 alprazolam 1 mg PO BID 09/15/20 09/15/20 cholecalciferol (vitamin D3) 5,000 unit PO DAILY 09/15/20 09/22/20 [Vitamin D3] cyanocobalamin (vitamin B-12) 1,000 mcg PO DAILY 09/15/20 09/22/20 lactobacillus combo no.13 1 cap PO DAILY 09/15/20 09/22/20 [Probiotic Pearls Complete] Allergies Allergy/AdvReac Type Severity Reaction Status Date / Time No Known Allergies Allergy Verified 01/08/21 22:24 Review of Systems Review of Systems: A 10 system review of systems was completed on the patient and is negative except for what is stated in the HPI. Nursing and ancillary documentation was reviewed. [facility] Past Medical History Medical History (Updated 01/09/21 @ 02:43 by Juan Diego Chambers MD) Abdominal pain in female Abnormal serum lipase level Abnormal weight gain Acute cystitis without hematuria Acute diverticulitis Acute non-recurrent pansinusitis Acute shoulder pain Adult idiopathic generalized osteoporosis Age-related osteoporosis with current pathological fracture, unspecified ankle and foot, initial encounter for fracture Anemia Anxiety Arthralgia Arthritis of both knees Bilateral tinnitus Body mass index (bmi) 39.0-39.9, adult (01/12/19) Bone spur of left foot Chronic migraine Chronic narcotic use Chronic pain syndrome Cyst of ovary Diarrhea Dietary counseling and surveillance (08/25/15) Diverticulitis of large intestine without perforation or abscess Diverticulosis of intestine, part unspecified, without perforation or abscess with bleeding Duodenal ulcer Dysphagia Dysuria Meredith-Danlos syndrome Epigastric pain Establishing care with new doctor, encounter for Fatigue Fear of flying Fibromyalgia Gastric ulcer Gastroesophageal reflux disease Generalized abdominal pain Generalized anxiety disorder History of dislocation of knee History of kidney stones Hyperextension deformity of knee Hyperthyroidism Hypokalemia Hypovitaminosis D Immunosuppressed status Impingement syndrome of right shoulder Irregular menses 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 syndrome with constipation 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 diarrhea custodial use
[2021-01-08 22:49] VITALS: PULSE 87; RESP 13; O2SAT 96
[2021-01-08 22:56] LABS: Basophils Absolute Auto 0.1 K/mm3 (0.0-0.1); Basophils Percent Auto 1.2 % (0.2-1.2); Eosinophils Absolute Auto 0.1 K/mm3 (0-0.3); Hematocrit 43.3 % (37.0-47.0); Hemoglobin 14.3 g/dL (12.0-15.0); Immature Granulocyte Absolute 0.05 K/mm3 (0.00-0.031); Immature Granulocyte Percent A 0.7 % (0-0.5); Lymphocytes Absolute Auto 2.31 K/mm3 (0.9-3.2); Lymphocytes Percent Auto 33.3 % (18.3-44.2); Mean Corpuscular Hemoglobin 31.8 pg (26-34); Mean Corpuscular Volume 96.2 fl (80-100); Mean Platelet Volume 8.7 fl (7.4-10.4); Monocytes Absolute Auto 0.4 K/mm3 (0.1-0.6); Monocytes Percent Auto 5.3 % (2.6-8.5); Neutrophils Percent Auto 57.5 % (45.5-73.1); Platelet Count Result 406 k/mm3 (150-375); Red Cell Distribution Width 14.5 % (11.5-14.5); White Blood Count 6.9 K/mm3 (4.5-10.0)
[2021-01-08 23:05] LABS: Lipase 384 U/L (23-300)
[2021-01-08 23:06] LABS: Alanine Aminotransferase 28 U/L (4-35); Albumin Level 4.1 g/dL (3.5-5.1); Alkaline Phosphatase 76 U/L (38-126); Anion Gap 10 mmol/L (8-16); Aspartate Amino Transferase 24 U/L (14-36); Bilirubin,Total 0.5 mg/dL (0.2-1.3); Blood Urea Nitrogen 8 mg/dL (7-17); Calcium 9.3 mg/dL (8.4-10.2); Carbon Dioxide 25 mmol/L (22-30); Chloride 105 mmol/L (98-107); Estimated CRCL calculation 70 ml/min; Estimated Glomerular Filt Rate 60; Glucose 93 mg/dL (65-110); Potassium 3.7 mmol/L (3.4-5.0); Sodium 140 mmol/L (137-145)
[2021-01-08] MEDS: MORPHINE SULFATE (*CRX) 4 MG/ML INJ IV PUSH (23:06)
[2021-01-08] MEDS: SODIUM CHLORIDE 0.9% IV 1,000 ML 999 ML IV CONT (23:06)
[2021-01-08 23:07] LABS: Lactic Acid Reflex 0.8 mmol/L (0.7-2.1)
[2021-01-08] MEDS: ONDANSETRON INJ 4 MG/2 ML VIAL IV PUSH (23:07)
[2021-01-08 23:09] LABS: INR 0.9; Prothrombin Time 11.6 Seconds (11.1-14.7)
[2021-01-08 23:10] LABS: Partial Thromboplastin Time 29.2 SECONDS (22.3-36.8)
[2021-01-08 23:16] LABS: NT Pro B Type Natriuretic Pept 52 pg/mL (5-100)
[2021-01-08 23:18] LABS: Troponin I < 0.012 ng/mL (0.000-0.034)
[2021-01-08 23:23] VITALS: BP 123/95; PULSE 65; RESP 20; O2SAT 95
[2021-01-08 23:32] VITALS: BP 128/84; PULSE 73; RESP 19; O2SAT 97
[2021-01-08 23:32] LABS: Add Urine Microscopic? YES; Appearance Urine Clear (Clear); Bacteria Urine Trace /hpf; Bilirubin Urine Negative (Negative); Blood Urine 1+ (Negative); Color Urine Yellow (Yellow); Glucose Urine UA Negative (Negative); Ketones Urine Negative (Negative); Leukocyte Esterase Ur Trace LEU/UL (Negative); Mucus Urine Few /lpf; Nitrate Urine Negative (Negative); Protein Urine Negative (Negative); Specific Grav Ur 1.018 (1.001-1.035); Squamous Epithelial Cell Urine Many /hpf (Few); Urobilinogen Urine Negative mg/dL (<2.0)
[2021-01-09] VITALS (10 sets, daily range): PULSE 60–95; RESP 12–21; O2SAT 98–100
[2021-01-09] MEDS: MORPHINE SULFATE (*CRX) 4 MG/ML INJ IV PUSH (01:18)
[2021-01-09] MEDS: ONDANSETRON INJ 4 MG/2 ML VIAL IV PUSH (01:19)
--- NOTE | 2021-01-09 02:43 | PC.NURSE ---
awaiting disposition. pt appears to be asleep, resting on stretcher with eyes closed. family present at bedside.
[2021-01-09 03:06] LABS: Troponin I < 0.012 ng/mL (0.000-0.034)
== END 2021-01-09 03:19 | disposition home or self-care (01) ==
PROVIDERS: Emergency Provider Emergency Medicine; PCP Internal Medicine
DX: R19.7 Diarrhea, unspecified (principal); R10.84 Generalized abdominal pain; R07.9 Chest pain, unspecified; M06.09 Rheumatoid arthritis without rheumatoid factor, multiple sites; M81.8 Other osteoporosis without current pathological fracture; M17.0 Bilateral primary osteoarthritis of knee; M47.26 Other spondylosis with radiculopathy, lumbar region; G89.4 Chronic pain syndrome; Q79.60 Ehlers-Danlos syndrome, unspecified; E05.90 Thyrotoxicosis, unspecified without thyrotoxic crisis or storm; K58.1 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 syndrome with constipation; F41.1 Generalized anxiety disorder; Z87.442 Personal history of urinary calculi; E66.3 Overweight; Z68.32 Body mass index [BMI] 32.0-32.9, adult; Z87.01 Personal history of pneumonia (recurrent); Z86.2 Personal history of diseases of the blood and blood-forming organs and certain disorders involving the immune mechanism; Z87.11 Personal history of peptic ulcer disease; Z87.440 Personal history of urinary (tract) infections; Z87.891 Personal history of nicotine dependence; R94.31 Abnormal electrocardiogram [ECG] [EKG]
CPT/HCPCS: 36415; 71275; 74177; 80053; 81001; 81025; 83605; 83690; 83880; 84484; 85025; 85610; 85730; 93005; 96361; 96374; 96375; 96376; 99284; J2270; J2405; J7030; Q9967

== ENCOUNTER 2021-01-13 01:48 | Day surgery (SDC) | payer BC, SELFPAY ==
[2021-01-11 11:10] VITALS: BMI 31.5
--- NOTE | 2021-01-12 12:14 | PM.HPGS ---
History of Present Illness History of Present Illness Consent: Risks, benefits, and alternatives have been discussed and questions answered. Patient agrees to proceed with procedure. Chief complaint: epigastric pain, nausea Narrative: Madalyn Smith is a 45 year old female With persistent nausea and epigastric pain. The pain she describes as a constant almost twisting type discomfort in the sternum and substernal area. She denies dysphagia. She has recently started the Orencia but had been on that in the past without problems. She has severe rheumatoid arthritis Review of Systems Review of Systems: All systems reviewed & are unremarkable except as noted in HPI and below PMFSH Past Medical History Medical History Abdominal pain in female Abnormal serum lipase level Abnormal weight gain Acute cystitis without hematuria Acute diverticulitis Acute non-recurrent pansinusitis Acute shoulder pain Adult idiopathic generalized osteoporosis Age-related osteoporosis with current pathological fracture, unspecified ankle and foot, initial encounter for fracture Anemia Anxiety Arthralgia Arthritis of both knees Bilateral tinnitus Body mass index (bmi) 39.0-39.9, adult (01/12/19) Bone spur of left foot Chronic migraine Chronic narcotic use Chronic pain syndrome Cyst of ovary Diarrhea Dietary counseling and surveillance (08/25/15) Diverticulitis of large intestine without perforation or abscess Diverticulosis of intestine, part unspecified, without perforation or abscess with bleeding Duodenal ulcer Dysphagia Dysuria Meredith-Danlos syndrome Epigastric pain Establishing care with new doctor, encounter for Fatigue Fear of flying Fibromyalgia Gastric ulcer Gastroesophageal reflux disease Generalized abdominal pain Generalized anxiety disorder History of dislocation of knee History of kidney stones Hyperextension deformity of knee Hyperthyroidism Hypokalemia Hypovitaminosis D Immunosuppressed status Impingement syndrome of right shoulder Irregular menses 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 syndrome with constipation 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 diarrhea 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 Low back pain Low TSH level Luteal cystic ovary disease Microscopic hematuria Migraine, unspecified, not intractable, without status migrainosus Multinodular goiter Muscle weakness of lower extremity Musculoskeletal pain Nausea Nephrolithiasis Nonintractable migraine Osteoarthritis of spine with radiculopathy, lumbar region Other chronic pain Overweight (11/22/16) Pain in both hands Pain of both hip joints Pain of left heel Pneumonia due to infectious organism Polyuria Prepatellar bursitis of both knees Prepatellar bursitis, left knee PUD (peptic ulcer disease) Rheumatoid arthritis of multiple sites with negative rheumatoid factor Rheumatoid arthritis of unspecified site with involvement of other organs and systems Right lower quadrant abdominal pain Swelling Swelling of finger joint of left hand Thyroid nodule Urinary symptom or sign Urinary tract infection without hematuria Weight loss Yeast vaginitis Surgical History Surgical History History of colonoscopy History of knee surgery ANUSHA reconstruction. History of lithotripsy x4. History of tonsillectomy Previous section Family History Family History Mother Patient's mother is in good health Family history of arthritis Father Patient's father is in good health Family history of alcoholism Family history of arthritis Family history of obesity Family history of chronic obstructive pulmonary disease Sibling Patient's sister is in good health Patient's brother is in good health Grandparent Family history of Alzheimer's disease Family history of lung cancer Other Family history of attention deficit hyperactivity disorder (ADHD)
[2021-01-13 06:55] VITALS: BP 119/85; PULSE 115; RESP 18; TEMP 36.1; O2SAT 100; BMI 31.3
[2021-01-13] MEDS: LACTATED RINGERS 1,000 ML 150 ML IV CONT (07:23)
--- NOTE | 2021-01-13 07:35 | WPDANESEPPF ---
Anes - Initial Pre Proc Eval Procedure: Operation Date: 01/13/21 08:00 Proposed Procedures p Esophagogastroduodenoscopy - Khoa Arias MD Date/Time: 01/13/21 07:35 Surgeon: Khoa Arias MD Pre Op Diagnosis: epigastric pain, nausea Patient Data Age: 45 Gender: F Height: 1.65 m Weight: 85.4 kg Last Vital Signs Temp 96.9 F L 01/13/21 06:55 Pulse 115 H 01/13/21 06:55 Resp 18 01/13/21 06:55 BP 119/85 01/13/21 06:55 Pulse Ox 100 01/13/21 06:55 Allergies Allergy/AdvReac Type Severity Reaction Status Date / Time No Known Allergies Allergy Verified 01/13/21 06:54 Home Medications Medication Instructions Recorded Confirmed Type bupropion HCl 300 mg 24 hr tablet, 300 mg PO QPM 05/02/20 01/11/21 History extended release duloxetine 20 mg capsule,delayed 40 mg PO HS 05/02/20 01/11/21 History release ondansetron 8 mg disintegrating 8 mg PO Q12H PRN 05/02/20 01/11/21 History tablet potassium citrate 15 mEq (1,620 1,620 mg PO BID 05/02/20 01/11/21 History mg) tablet,extended release propranolol 10 mg tablet 10 mg PO QAM 05/02/20 01/13/21 History tamsulosin 0.4 mg capsule 0.4 mg PO DAILY PRN 05/02/20 01/11/21 History tramadol 50 mg tablet 50 mg PO Q6H PRN 05/02/20 01/11/21 History trazodone 100 mg tablet 100 mg PO HS 05/02/20 01/11/21 History azathioprine 50 mg tablet 100 mg PO BID tablet 06/14/20 01/11/21 History alprazolam 1 mg PO BID 09/15/20 01/13/21 History cholecalciferol (vitamin D3) 5,000 unit PO DAILY 09/15/20 01/11/21 History [Vitamin D3] cyanocobalamin (vitamin B-12) 1,000 mcg PO DAILY 09/15/20 01/11/21 History lactobacillus combo no.13 1 cap PO DAILY 09/15/20 01/11/21 History [Probiotic Pearls Complete] sumatriptan succinate 6 mg/0.5 mL See Rx Instructions .ROUTE 11/22/20 01/11/21 Rx subcutaneous pen injector .COMPLEX #2 ml dicyclomine 20 mg PO QID PRN 7 Days #28 tablet 01/09/21 01/11/21 Rx pantoprazole 40 mg tablet,delayed 40 mg PO QAM #90 tablet 01/10/21 01/11/21 Rx release Patient hx anesthesia problems: none Family hx anesthesia problems: none Results Review: All pre-operative results and documents have been reviewed as part of the pre-operative evaluation. [facility] Past Medical History Medical History Abdominal pain in female Abnormal serum lipase level Abnormal weight gain Acute cystitis without hematuria Acute diverticulitis Acute non-recurrent pansinusitis Acute shoulder pain Adult idiopathic generalized osteoporosis Age-related osteoporosis with current pathological fracture, unspecified ankle and foot, initial encounter for fracture Anemia Anxiety Arthralgia Arthritis of both knees Bilateral tinnitus Body mass index (bmi) 39.0-39.9, adult (01/12/19) Bone spur of left foot Chronic migraine Chronic narcotic use Chronic pain syndrome Cyst of ovary Diarrhea Dietary counseling and surveillance (08/25/15) Diverticulitis of large intestine without perforation or abscess Diverticulosis of intestine, part unspecified, without perforation or abscess with bleeding Duodenal ulcer Dysphagia Dysuria Meredith-Danlos syndrome Epigastric pain Establishing care with new doctor, encounter for Fatigue Fear of flying Fibromyalgia Gastric ulcer Gastroesophageal reflux disease Generalized abdominal pain Generalized anxiety disorder History of dislocation of knee History of kidney stones Hyperextension deformity of knee Hyperthyroidism Hypokalemia Hypovitaminosis D Immunosuppressed status Impingement syndrome of right shoulder Irregular menses 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 syndrome with constipation 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 diarrhea jail use of drug Low back pain Low TSH level Luteal cystic ovary disease Microscopic hematuria Migraine, unspecified, not intractable, without status migrainosus Multinodular goiter Muscle weakness of lower extremity Musculoskeletal pain Nausea Nephrolithiasis Nonin
[2021-01-13 08:09] VITALS: BP 96/59; PULSE 90; RESP 20; O2SAT 95
[2021-01-13 08:19] VITALS: BP 102/70; PULSE 87; RESP 22; O2SAT 96
[2021-01-13 08:29] VITALS: BP 150/58; PULSE 78; RESP 20; O2SAT 98
== END 2021-01-13 08:52 | disposition home or self-care (01) ==
PROVIDERS: PCP Internal Medicine; Referring Provider Physician Assistant; Visit Provider Internal Medicine Gastroenterology
PROC: 0DJ08ZZ Inspection of Upper Intestinal Tract, Via Natural or Artificial Opening Endoscopic (ICD-10-PCS; CPT 43235; principal; 2021-01-13 08:00)
DX: R10.13 Epigastric pain (principal); K21.9 Gastro-esophageal reflux disease without esophagitis; K31.84 Gastroparesis; R11.0 Nausea; D64.9 Anemia, unspecified; F41.9 Anxiety disorder, unspecified; M19.90 Unspecified osteoarthritis, unspecified site; H93.13 Tinnitus, bilateral; G89.4 Chronic pain syndrome; R13.10 Dysphagia, unspecified; R53.83 Other fatigue; Q79.60 Ehlers-Danlos syndrome, unspecified; M79.7 Fibromyalgia; E05.90 Thyrotoxicosis, unspecified without thyrotoxic crisis or storm; E55.9 Vitamin D deficiency, unspecified; D84.9 Immunodeficiency, unspecified; Z79.899 Other long term (current) drug therapy; R31.29 Other microscopic hematuria; E04.9 Nontoxic goiter, unspecified; Z87.11 Personal history of peptic ulcer disease; Z87.898 Personal history of other specified conditions; M06.80 Other specified rheumatoid arthritis, unspecified site; Z87.891 Personal history of nicotine dependence; E66.9 Obesity, unspecified; Z68.31 Body mass index [BMI] 31.0-31.9, adult; F12.90 Cannabis use, unspecified, uncomplicated
CPT/HCPCS: 43239; 87081; 88305; J2001; J2704; J7120

== ENCOUNTER 2021-02-04 07:27 | Outpatient (RCR) | payer BC, SELFPAY ==
[2021-02-03 12:48] LABS: Vitamin D 25 Hydroxy 49.8 ng/mL
[2021-02-03 12:59] LABS: Iron 57 ug/dL (37-170); Percent Iron Saturation 17 % (20-50)
[2021-02-03 16:01] LABS: Alanine Aminotransferase 26 U/L (4-35); Albumin Level 4.4 g/dL (3.5-5.1); Alkaline Phosphatase 68 U/L (38-126); Anion Gap 11 mmol/L (8-16); Aspartate Amino Transferase 22 U/L (14-36); Bilirubin,Total 0.4 mg/dL (0.2-1.3); Blood Urea Nitrogen 14 mg/dL (7-17); Calcium 9.4 mg/dL (8.4-10.2); Carbon Dioxide 21 mmol/L (22-30); Chloride 109 mmol/L (98-107); Cholesterol 227 mg/dL (0-200); Estimated Glomerular Filt Rate > 60; Glucose 94 mg/dL (65-110); HDL Direct 41 mg/dL; Potassium 4.3 mmol/L (3.4-5.0); Sodium 141 mmol/L (137-145); Triglycerides 172 mg/dL (<150)
[2021-02-03 16:11] LABS: LDL Cholesterol Direct 165 mg/dL
[2021-02-03 16:31] LABS: Thyroid Stimulating Hormone 0.476 uIU/mL (0.465-4.680)
[2021-02-03 17:11] LABS: Folic Acid 3.8 ng/mL (2.76->20); Vitamin B12 > 1000.0 pg/mL (239-931)
[2021-02-04 08:15] LABS: Basophils Absolute Auto 0.1 K/mm3 (0.0-0.1); Basophils Percent Auto 1.7 % (0.2-1.2); Eosinophils Absolute Auto 0.1 K/mm3 (0-0.3); Eosinophils Percent Auto 1.7 % (0-4.4); Hematocrit 43.8 % (37.0-47.0); Hemoglobin 14.3 g/dL (12.0-15.0); Immature Granulocyte Absolute 0.04 K/mm3 (0.00-0.031); Immature Granulocyte Percent A 0.7 % (0-0.5); Lymphocytes Absolute Auto 1.17 K/mm3 (0.9-3.2); Lymphocytes Percent Auto 21.5 % (18.3-44.2); Mean Corpuscular HGB Conc 32.6 g/dl (32-36); Mean Corpuscular Hemoglobin 31.7 pg (26-34); Mean Corpuscular Volume 97.1 fl (80-100); Monocytes Absolute Auto 0.3 K/mm3 (0.1-0.6); Monocytes Percent Auto 6.1 % (2.6-8.5); Neutrophils Absolute Auto 3.7 K/mm3 (1.3-6.7); Neutrophils Percent Auto 68.3 % (45.5-73.1); Platelet Count Result 338 k/mm3 (150-375); Red Blood Count 4.51 M/mm3 (4.2-5.4); Red Cell Distribution Width 14.5 % (11.5-14.5); White Blood Count 5.5 K/mm3 (4.5-10.0)
== END 2021-05-04 23:59 | disposition home or self-care (01) ==
LOC: ANHLAB 07:27
PROVIDERS: PCP Internal Medicine; Visit Provider Internal Medicine
DX: E55.9 Vitamin D deficiency, unspecified (principal); E61.1 Iron deficiency; R53.83 Other fatigue; R74.8 Abnormal levels of other serum enzymes
CPT/HCPCS: 36415; 80053; 80061; 82306; 82607; 82746; 83540; 83550; 84443; 85025

== ENCOUNTER 2021-02-26 10:08 | Emergency (ER) | payer BC, SELFPAY ==
--- NOTE | ~2021-02-26 | CT_ITS ---
EXAMINATION: CT abdomen pelvis w con DATE: 02/26/2021 15:11 INDICATION: Right lower quadrant pain for 3 days TECHNIQUE: Computed tomography (CT) of the abdomen and pelvis was performed with 100 cc Omnipaque 350 intravenous contrast. Automated exposure control and iterative reconstruction technique were employe d. Exam dose: 745.68 mGy-cm total exam DLP. COMPARISON: 09/29/2020 CT abdomen pelvis FINDINGS: The lung bases are clear of infiltrate or consolidation. Normal heart size. No pericardial or pleural effusion. 1.6 cm enhancing lesion in the anterior aspect of the lower right hepatic lobe and a similar smaller approximately 12 mm hyperenhancing lesion of the inferior tip of the right hepatic lobe are noted, st atistically most likely hepatic hemangiomas. No other hepatic space-occupying mass lesion is evident. The gallbladder is present. No bile duct or pancreatic duct dilatation. No pancreatic mass lesion or calcification. There are multiple splenic calcified granulomas. Normal morphology of the adrenal glands. 7 mm right renal cyst. 1.8 cm left renal cyst. One or 2 additional small left renal cysts are suggest ed. There are multiple small nonobstructing right renal calculi and several nonobstructing small left leander al calculi There are multiple diverticula of the colon; no CT evidence of diverticulitis. Normal appendix. No rajinder wel obstruction, bowel wall thickening, pneumatosis or intraperitoneal free air. Normal caliber of the abdominal aorta. No intraperitoneal or retroperitoneal or pelvic mass lesion or adenopathy or ascites. Included skeletal structures are unremarkable. IMPRESSION: Normal appendix Diverticulosis of the colon; no CT evidence of diverticulitis Hepatic hemangiomas Bilateral renal cysts Bilateral nonobstructive nephrolithiasis; no ureteral calculus or hydroureteronephrosis Reviewed, dictated and finalized at [facility]. Reviewed, dictated and finalized at location [facility]. TER HELPER IMPRESSION: Normal appendix Diverticulosis of the colon; no CT evidence of diverticulitis Hepatic hemangiomas Bilateral renal cysts Bilateral nonobstructive nephrolithiasis; no ureteral calculus or hydroureteron ephrosis
[2021-02-26 10:21] VITALS: BP 131/92; PULSE 79; RESP 16; TEMP 36.4; O2SAT 100
[2021-02-26 10:58] LABS: Add Urine Microscopic? YES; Appearance Urine Cloudy (Clear); Bilirubin Urine Negative (Negative); Blood Urine 2+ (Negative); Color Urine Yellow (Yellow); Glucose Urine UA Negative (Negative); Ketones Urine Negative (Negative); Leukocyte Esterase Ur Negative LEU/UL (Negative); Mucus Urine Rare /lpf; Nitrate Urine Negative (Negative); Protein Urine Negative (Negative); RBC Urine 0-2 /hpf (0-2); Squamous Epithelial Cell Urine Many /hpf (Few); Urobilinogen Urine Negative mg/dL (<2.0); WBC Urine 0-3 /hpf
[2021-02-26 12:34] VITALS: BP 130/78; PULSE 69; RESP 16; O2SAT 100
[2021-02-26] MEDS: MORPHINE SULFATE (*CRX) 4 MG/ML INJ IV PUSH (14:25)
[2021-02-26] MEDS: SODIUM CHLORIDE 0.9% IV 1,000 ML 150 ML IV CONT (14:25)
[2021-02-26] MEDS: ONDANSETRON INJ 4 MG/2 ML VIAL IV PUSH (14:25)
[2021-02-26 14:32] LABS: Basophils Absolute Auto 0.1 K/mm3 (0.0-0.1); Basophils Percent Auto 1.2 % (0.2-1.2); Eosinophils Absolute Auto 0.1 K/mm3 (0-0.3); Eosinophils Percent Auto 0.8 % (0-4.4); Hematocrit 43.5 % (37.0-47.0); Hemoglobin 14.2 g/dL (12.0-15.0); Immature Granulocyte Absolute 0.04 K/mm3 (0.00-0.031); Immature Granulocyte Percent A 0.5 % (0-0.5); Lymphocytes Absolute Auto 1.51 K/mm3 (0.9-3.2); Lymphocytes Percent Auto 18.2 % (18.3-44.2); Mean Corpuscular HGB Conc 32.6 g/dl (32-36); Mean Corpuscular Hemoglobin 30.5 pg (26-34); Mean Corpuscular Volume 93.3 fl (80-100); Monocytes Absolute Auto 0.4 K/mm3 (0.1-0.6); Monocytes Percent Auto 5.1 % (2.6-8.5); Neutrophils Absolute Auto 6.2 K/mm3 (1.3-6.7); Neutrophils Percent Auto 74.2 % (45.5-73.1); Platelet Count Result 287 k/mm3 (150-375); Red Blood Count 4.66 M/mm3 (4.2-5.4); Red Cell Distribution Width 13.9 % (11.5-14.5); White Blood Count 8.3 K/mm3 (4.5-10.0)
[2021-02-26 14:42] LABS: Alanine Aminotransferase 108 U/L (4-35); Albumin Level 4.3 g/dL (3.5-5.1); Alkaline Phosphatase 81 U/L (38-126); Anion Gap 6 mmol/L (8-16); Aspartate Amino Transferase 93 U/L (14-36); Bilirubin,Total 0.6 mg/dL (0.2-1.3); Blood Urea Nitrogen 15 mg/dL (7-17); Calcium 9.4 mg/dL (8.4-10.2); Carbon Dioxide 28 mmol/L (22-30); Chloride 103 mmol/L (98-107); Estimated CRCL calculation 76 ml/min; Estimated Glomerular Filt Rate > 60; Glucose 89 mg/dL (65-110); Lipase 222 U/L (23-300); Potassium 4.5 mmol/L (3.4-5.0); Sodium 137 mmol/L (137-145)
--- NOTE | 2021-02-26 16:41 | ED.ABDPAIN ---
HPI - Abdominal Pain General Chief Complaint: Abdominal Pain Stated Complaint: rlq abd pain Time Seen by Provider: 02/26/21 12:25 Related Data Home Medications Medication Instructions Recorded Confirmed bupropion HCl 300 mg 24 hr tablet, 300 mg PO QPM 05/02/20 02/06/21 extended release duloxetine 20 mg capsule,delayed 40 mg PO HS 05/02/20 02/06/21 release ondansetron 8 mg disintegrating 8 mg PO Q12H PRN 05/02/20 02/06/21 tablet potassium citrate 15 mEq (1,620 1,620 mg PO BID 05/02/20 02/06/21 mg) tablet,extended release propranolol 10 mg tablet 10 mg PO QAM 05/02/20 02/06/21 tamsulosin 0.4 mg capsule 0.4 mg PO DAILY PRN 05/02/20 01/13/21 tramadol 50 mg tablet 50 mg PO Q6H PRN 05/02/20 02/06/21 trazodone 100 mg tablet 100 mg PO HS 05/02/20 02/06/21 azathioprine 50 mg tablet 100 mg PO BID tablet 06/14/20 01/13/21 Probiotic Pearls Complete 1 cap PO DAILY 09/15/20 02/06/21 alprazolam 1 mg PO BID 09/15/20 02/06/21 cholecalciferol (vitamin D3) 5,000 unit PO DAILY 09/15/20 02/06/21 [Vitamin D3] cyanocobalamin (vitamin B-12) 1,000 mcg PO DAILY 09/15/20 02/06/21 Allergies Allergy/AdvReac Type Severity Reaction Status Date / Time No Known Allergies Allergy Verified 02/06/21 16:37 Review of Systems Review of Systems: All systems reviewed & are unremarkable except as noted in HPI and below Constitutional: Constitutional: Reports no additional constitutional complaints Eyes: Eyes: Reports no additional eye complaints ENT: Reports system reviewed and no additional complaints, except as documented Cardiovascular: Cardiovascular: Reports no additional cardiovascular complaints Respiratory: Respiratory: Reports no additional respiratory complaints Gastrointestinal: Gastrointestinal: Reports as per HPI Genitourinary: Genitourinary: Reports no additional female genitourinary complaints Musculoskeletal: Musculoskeletal: Reports myalgias and Reports arthralgias Integumentary/Breasts: Skin/Breast: Reports system reviewed and no additional complaints, except as docu Neurologic: Reports system reviewed and no additional complaints, except as documented Psychiatric: Psychiatric: Reports no additional psychiatric complaints PMFSH Past Medical History Medical History Abdominal pain in female Abnormal serum lipase level Abnormal weight gain Acute cystitis without hematuria Acute diverticulitis Acute non-recurrent pansinusitis Acute shoulder pain Adult idiopathic generalized osteoporosis Age-related osteoporosis with current pathological fracture, unspecified ankle and foot, initial encounter for fracture Anemia Anxiety Arthralgia Arthritis of both knees Bilateral tinnitus Body mass index (bmi) 39.0-39.9, adult (01/12/19) Bone spur of left foot Chronic migraine Chronic narcotic use Chronic pain syndrome Cyst of ovary Diarrhea Dietary counseling and surveillance (08/25/15) Diverticulitis of large intestine without perforation or abscess Diverticulosis of intestine, part unspecified, without perforation or abscess with bleeding Duodenal ulcer Dysphagia Dysuria Meredith-Danlos syndrome Epigastric pain Establishing care with new doctor, encounter for Fatigue Fear of flying Fibromyalgia Gastric ulcer Gastroesophageal reflux disease Generalized abdominal pain Generalized anxiety disorder History of dislocation of knee History of kidney stones Hyperextension deformity of knee Hyperthyroidism Hypokalemia Hypovitaminosis D Immunosuppressed status Impingement syndrome of right shoulder Irregular menses 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 syndrome with constipation 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 diarrhea halfway use of drug Low back pain Low TSH level Luteal cystic ovary disease Microscopic hematuria Migraine, unspecified, not intractable, without status migrainosus Multinodular goiter Muscle weakness of lower extremity Musculoskeletal pain Nausea Nephrolithiasis Nonin
== END 2021-02-26 17:04 | disposition home or self-care (01) ==
PROVIDERS: Emergency Provider Family Medicine; PCP Internal Medicine
DX: R10.31 Right lower quadrant pain (principal); R74.01 Elevation of levels of liver transaminase levels; I10 Essential (primary) hypertension; F41.9 Anxiety disorder, unspecified; M17.0 Bilateral primary osteoarthritis of knee; G89.4 Chronic pain syndrome; Q79.60 Ehlers-Danlos syndrome, unspecified; M79.7 Fibromyalgia; K21.9 Gastro-esophageal reflux disease without esophagitis; E05.90 Thyrotoxicosis, unspecified without thyrotoxic crisis or storm; E55.9 Vitamin D deficiency, unspecified; K58.1 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 syndrome with constipation; K57.90 Diverticulosis of intestine, part unspecified, without perforation or abscess without bleeding; M81.8 Other osteoporosis without current pathological fracture; M47.26 Other spondylosis with radiculopathy, lumbar region; M06.09 Rheumatoid arthritis without rheumatoid factor, multiple sites; Z86.2 Personal history of diseases of the blood and blood-forming organs and certain disorders involving the immune mechanism; Z87.11 Personal history of peptic ulcer disease; Z87.442 Personal history of urinary calculi; Z87.01 Personal history of pneumonia (recurrent); Z87.891 Personal history of nicotine dependence; D18.09 Hemangioma of other sites; N28.1 Cyst of kidney, acquired; N20.0 Calculus of kidney
CPT/HCPCS: 36415; 74177; 80053; 81001; 81025; 83690; 85025; 96361; 96374; 96375; 99284; J2270; J2405; J7030; Q9967

== ENCOUNTER 2021-03-05 12:22 | Outpatient (CLI) | payer BC, SELFPAY ==
--- NOTE | ~2021-03-05 | XR_ITS ---
EXAMINATION: XR abdomen/kub 1V DATE: 03/05/2021 12:42 INDICATION: Bilateral kidney stones. TECHNIQUE: A supine view of the abdomen was obtained. COMPARISON: Abdomen radiographs 03/11/2020, CT abdomen and pelvis 02/26/2021 FINDINGS: There are no dilated loops of bowel. The kidneys are obscured by bowel. There is a 2 mm sto ne in left kidney. There are multiple stones in right kidney measuring up to 3 mm. IMPRESSION: 1. Bilateral kidney stones. Reviewed, dictated and finalized at location [facility]. OM SKI MAKER IMPRESSION: 1. Bilateral kidney stones.
== END 2021-03-05 12:23 | disposition home or self-care (01) ==
LOC: ANHIMG 12:28
PROVIDERS: PCP Internal Medicine; Visit Provider Urology
DX: N20.0 Calculus of kidney (principal)
CPT/HCPCS: 74018

== ENCOUNTER 2021-03-07 08:52 | Outpatient (CLI) | payer BC, SELFPAY ==
--- NOTE | ~2021-03-07 | MR_ITS ---
EXAMINATION: MR abdomen wo/w con DATE: 03/07/2021 10:27 INDICATION: Other specified diseases of liver. Abnormal liver function tests. TECHNIQUE: Magnetic resonance imaging (MRI) of the abdomen was performed without and with 16 mL Multi Luciano intravenous contrast. Sequences included coronal T2-weighted FS FSE, coronal and axial FS FIEST A, axial T2-weighted FSE, coronal LAVA-flex, axial STIR FSE, axial DWI, axial dual-echo T1-weighted F SPGR, and axial LAVA. Postcontrast sequences included coronal LAVA-flex and a time course of axial LA VA. COMPARISON: CT abdomen and pelvis 02/26/2021, abdomen MRI 11/27/2016 FINDINGS: There are 5 chronic hyperenhancing masses in the liver measuring up to 17 mm, increased from 11 mm on 11/27/2016. The liver, spleen, pancreas, and adrenal glands are normal. There are cysts in the kidneys measuring up to 2.0 cm on the left. There are no dilated loops of bowel. There is a small sliding hi atal hernia. There are no pathologically enlarged lymph nodes. There is no free intraperitoneal fluid . IMPRESSION: 1. Hypervascular liver masses with increase in size of some of the masses from 11/27/2016, likely heman giomas and/or focal nodular hyperplasia. Reviewed, dictated and finalized at location [facility]. ING MACHINE SETTER IMPRESSION: 1. Hypervascular liver masses with increase in size of some of the masses from 11/27/2016, likely hemangiomas and/or focal nodular hyperplasia.
== END 2021-03-07 08:53 | disposition home or self-care (01) ==
PROVIDERS: PCP Internal Medicine; Visit Provider Physician Assistant
DX: K76.89 Other specified diseases of liver (principal)
CPT/HCPCS: 74183; A9577

== ENCOUNTER 2021-03-10 02:11 | Day surgery (SDC) | payer BC, SELFPAY ==
--- NOTE | 2021-03-09 07:31 | PM.HPGS ---
History of Present Illness History of Present Illness Consent: Risks, benefits, and alternatives have been discussed and questions answered. Patient agrees to proceed with procedure. Chief complaint: bilateral renal stones Narrative: Madalyn Smith is a 45 year old female, well known to me with history of recurrent urolithiasis, recently seen with intermittent, moderately severe right flank pain. Imaging reveals bilat. calcified, non-obstructing stones with greater burden on right side. After discussion of options (observation, ESWL and endoscopic extraction) we've opted for right ESWL. She's aware of risks including, but not limited to, recurrent/persistent stones, renal bleeding/hematoma, hematuria. Review of Systems Cardiovascular: Cardiovascular: Denies chest pain, Denies lightheadedness, Denies palpitations and Denies dyspnea Respiratory: Respiratory: Denies dyspnea Gastrointestinal: Gastrointestinal: Denies diarrhea, Denies nausea and Denies vomiting Genitourinary: Genitourinary: Denies hematuria and Denies dysuria Endocrine: Endocrine: Denies palpitations [facility] Past Medical History Medical History (Updated 03/09/21 @ 07:33 by Jorge Aguiar MD) Abdominal pain in female Abnormal serum lipase level Abnormal weight gain Acute cystitis without hematuria Acute diverticulitis Acute non-recurrent pansinusitis Acute shoulder pain Adult idiopathic generalized osteoporosis Age-related osteoporosis with current pathological fracture, unspecified ankle and foot, initial encounter for fracture Anemia Anxiety Arthralgia Arthritis of both knees Bilateral tinnitus Body mass index (bmi) 39.0-39.9, adult (01/12/19) Bone spur of left foot Chronic migraine Chronic narcotic use Chronic pain syndrome Cyst of ovary Diarrhea Dietary counseling and surveillance (08/25/15) Diverticulitis of large intestine without perforation or abscess Diverticulosis of intestine, part unspecified, without perforation or abscess with bleeding Duodenal ulcer Dysphagia Dysuria Meredith-Danlos syndrome Epigastric pain Establishing care with new doctor, encounter for Fatigue Fear of flying Fibromyalgia Gastric ulcer Gastroesophageal reflux disease Generalized abdominal pain Generalized anxiety disorder History of dislocation of knee History of kidney stones Hyperextension deformity of knee Hyperthyroidism Hypokalemia Hypovitaminosis D Immunosuppressed status Impingement syndrome of right shoulder Irregular menses 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 syndrome with constipation 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 diarrhea 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 use 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 Low back pain Low TSH level Luteal cystic ovary disease Microscopic hematuria Migraine, unspecified, not intractable, without status migrainosus Multinodular goiter Muscle weakness of lower extremity Musculoskeletal pain Nausea Nephrolithiasis Nonintractable migraine Osteoarthritis of spine with radiculopathy, lumbar region Other chronic pain Overweight (11/22/16) Pain in both hands Pain of both hip joints Pain of left heel Pneumonia due to infectious organism Polyuria Prepatellar bursitis of both knees Prepatellar bursitis, left knee PUD (peptic ulcer disease) Rheumatoid arthritis of multiple sites with negative rheumatoid factor Rheumatoid arthritis of unspecified site with involvement of other organs and systems Right lower quadrant abdominal pain Swelling Swelling of finger joint of left hand Thyroid nodule Urinary symptom or sign Urinary tract infection without hematuria Weight loss Yeast vaginitis Surgical History Surgical History History of colonoscopy History of knee surgery ANUSHA reconstruction. History of lithotripsy x4. History of tonsillectomy Previous section Family History Family History Mother Patient's mother is in good health Family history of arthritis Father Patient's fa
--- NOTE | 2021-03-09 08:45 | PC.NURSE ---
Report to the Outpatient Waiting Room, entrance under the green pavilion located off [facility], at time 1130 on date 03/10/21. OR Time: 1330. - You and your visitor will be asked a series of questions to screen for COVID 19 for your protection. - A mask is required within the hospital. - Only one visitor is allowed at this time. Patient visitors will be guided where to wait when not with patient. Preoperative COVID Testing Requirements: No COVID Test needed if: (proof is required; if not received patient will have Rapid Test prior to entry) - Patient has received COVID Vaccine at least 14 days prior to procedure date or - Patient has positive COVID test result within last 90 days of surgery date. COVID Test needed if above criteria is not met If not COVID vaccinated a COVID test must be conducted within 72 hours of surgery and patient is asked to isolate self from time of testing until procedure. You will go to the [email or web address] for your COVID testing. The [facility] is located at the corner of [address] [facility]. You will only be called if COVID results are positive and your surgeon may reschedule your elective surgery date. Patients may have clear liquids (water, carbonated beverages, clear teas, apple juice) until 3 hours prior to surgery with a maximum of 20 ounces. - No food from midnight until time of surgery - Infants may have breast milk until 4 hours before surgery, infant formula 6 hours prior to surgery. - Children will be allowed to drink immediately following surgery. If applicable, please bring a bottle or sippy cup to assist with drinking. Juice, water, soda, and popsicles are readily available. For infants on formula, please bring formula the day of surgery. Pacifiers are allowed. Take the following medications with a SIP of water the morning of surgery: PROPRANOLOL, XANAX AND PAIN PILL (IF NEEDED) Medications to discontinue per physician: VITAMINS/SUPPLEMENTS Date to take last dose: NOW Please no make-up, nail czech, hairspray, perfume, deodorant, or body powder the day of surgery. No jewelry (including any body piercings) or valuables the day of surgery, leave them at home. Please take a shower or bath the night before, or the morning of, surgery with an antibacterial soap. Wear comfortable, loose fitting clothing. Children are encouraged to wear pajamas. - Jewelry must be removed prior to entering the operating room. Rings and piercings that are not removed may be cut off. - The hospital will not accept responsibility for valuables. - Please leave all valuables, including medications, at home the day of surgery. If you are going home after surgery, a licensed delivery driver/supervisor must drive you home. - NO public transportation without another adult. - We recommend that an adult stay with you for 24 hours following discharge. - We also recommend that you do not drive, make important decision, drink alcoholic beverages, or take any drugs that were not prescribed by your health care provider for at least 24 hours after your discharge time. For Pediatric surgeries, we recommend two adults accompany the child home (only one inside the building at this time). Follow any additional instructions given to you from your surgeon. Telephone instructions given to JULIAN SAUER and asked if any additional questions and then verbalized understanding. Patient advised to call surgeon office or pre surgery nurse liaison [phone] if any additional questions.
[2021-03-10] VITALS (8 sets, daily range): BP systolic 109–131; BP diastolic 50–104; PULSE 79–93; RESP 12–20; TEMP 36.4–36.5; O2SAT 98–100
--- NOTE | ~2021-03-10 | XR_ITS ---
EXAMINATION: XR abdomen/kub 1V DATE: 03/10/2021 11:44 INDICATION: Kidney stone. TECHNIQUE: A supine view of the abdomen on 2 radiographs was obtained. COMPARISON: Abdomen radiographs 03/05/2021, CT abdomen and pelvis 02/26/2021 FINDINGS: There are no dilated loops of bowel. The kidneys are obscured by bowel. There are stones in the kidneys measuring up to 2 mm. IMPRESSION: 1. Small bilateral kidney stones. Reviewed, dictated and finalized at location [facility]. RONMENTAL SAFETY SPECIALIST
--- NOTE | 2021-03-10 12:08 | WPDANESEPPF ---
Anes - Initial Pre Proc Eval Procedure: Operation Date: 03/10/21 13:30 Proposed Procedures p Right Extracorporeal Shock Wave Lithotripsy - Jorge Aguiar MD Date/Time: 03/10/21 12:08 Surgeon: Jorge Aguiar MD Pre Op Diagnosis: bilateral renal stones Patient Data Age: 45 Gender: F Height: 1.68 m Weight: 84.37 kg Allergies Allergy/AdvReac Type Severity Reaction Status Date / Time No Known Allergies Allergy Verified 03/10/21 09:35 Home Medications Medication Instructions Recorded Confirmed Type bupropion HCl 300 mg 24 hr tablet, 300 mg PO QPM 05/02/20 03/09/21 History extended release duloxetine 20 mg capsule,delayed 40 mg PO HS 05/02/20 03/09/21 History release ondansetron 8 mg disintegrating 8 mg PO Q12H PRN 05/02/20 03/09/21 History tablet potassium citrate 15 mEq (1,620 1,620 mg PO BID 05/02/20 03/09/21 History mg) tablet,extended release propranolol 10 mg tablet 10 mg PO QAM 05/02/20 03/09/21 History trazodone 100 mg tablet 100 mg PO HS 05/02/20 03/09/21 History Probiotic Pearls Complete 1 cap PO DAILY 09/15/20 03/09/21 History alprazolam 1 mg PO BID 09/15/20 03/09/21 History cholecalciferol (vitamin D3) 5,000 unit PO DAILY 09/15/20 03/09/21 History [Vitamin D3] cyanocobalamin (vitamin B-12) 1,000 mcg PO DAILY 09/15/20 03/09/21 History pantoprazole 40 mg tablet,delayed 40 mg PO QAM #90 tablet 01/10/21 03/09/21 Rx release sumatriptan succinate 6 mg/0.5 mL See Rx Instructions .ROUTE 02/17/21 03/09/21 Rx subcutaneous pen injector .COMPLEX #2 ml hydrocodone 5 mg-acetaminophen 325 1 tablet PO Q12H PRN #30 tablet 02/21/21 03/09/21 Rx mg tablet dicyclomine 20 mg tablet 20 mg PO QID PRN #120 tablet 02/27/21 03/09/21 Rx Patient hx anesthesia problems: none Family hx anesthesia problems: none Results Review: All pre-operative results and documents have been reviewed as part of the pre-operative evaluation. [facility] Past Medical History Medical History Abdominal pain in female Abnormal serum lipase level Abnormal weight gain Acute cystitis without hematuria Acute diverticulitis Acute non-recurrent pansinusitis Acute shoulder pain Adult idiopathic generalized osteoporosis Age-related osteoporosis with current pathological fracture, unspecified ankle and foot, initial encounter for fracture Anemia Anxiety Arthralgia Arthritis of both knees Bilateral tinnitus Body mass index (bmi) 39.0-39.9, adult (01/12/19) Bone spur of left foot Chronic migraine Chronic narcotic use Chronic pain syndrome Cyst of ovary Diarrhea Dietary counseling and surveillance (08/25/15) Diverticulitis of large intestine without perforation or abscess Diverticulosis of intestine, part unspecified, without perforation or abscess with bleeding Duodenal ulcer Dysphagia Dysuria Meredith-Danlos syndrome Epigastric pain Establishing care with new doctor, encounter for Fatigue Fear of flying Fibromyalgia Gastric ulcer Gastroesophageal reflux disease Generalized abdominal pain Generalized anxiety disorder History of dislocation of knee History of kidney stones Hyperextension deformity of knee Hyperthyroidism Hypokalemia Hypovitaminosis D Immunosuppressed status Impingement syndrome of right shoulder Irregular menses 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 syndrome with constipation 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 diarrhea USP use of drug Low back pain Low TSH level Luteal cystic ovary disease Microscopic hematuria Migraine, unspecified, not intractable, without status migrainosus Multinodular goiter Muscle weakness of lower extremity Musculoskeletal pain Nausea Nephrolithiasis Nonintractable migraine Osteoarthritis of spine with radiculopathy, lumbar region Other chronic pain Overweight (11/22/16) Pain in both hands Pain of both hip joints Pain of left heel Pneumonia due to infectious organism Polyuria Prepatellar bursitis of both knees Prepatellar bursiti
[2021-03-10] MEDS: LACTATED RINGERS 1,000 ML 30 ML IV CONT ×2 (12:14→14:16)
[2021-03-10 12:37] LABS: INR 0.8; Partial Thromboplastin Time 27.5 SECONDS (22.3-36.8); Prothrombin Time 11.4 Seconds (11.1-14.7)
--- NOTE | 2021-03-10 12:43 | WPDHPUPDATE1 ---
History and Physical Update Update Date/Time: 03/10/21 12:43 History and Physical has been reviewed, including an updated exam of the patient. There are NO changes in the patient's condition. Risks, benefits, and alternatives have been discussed and questions answered. Patient agrees to proceed with procedure.
[2021-03-10] MEDS: ceFAZolin 2 GM/D5W 50 ML 2 GM/50 ML BAG IVPB (12:59)
--- NOTE | 2021-03-10 13:09 | W.PM.PROC2 ---
Procedure Note - Detailed Date of Procedure 03/10/21 Pre-op Diagnosis Bilateral renal stones Post-op Diagnosis same Procedure Performed Right ESWL Surgeon Jorge Aguiar MD Anesthesia general Description of Procedure The patient was brought to the operative suite where she was placed in the supine position on the Dornier lithotripsy table. The focal point of the lithotripter was placed at a the 3 largest or 4 identifiable right renal calculi - where approx. 800 shocks were delivered to each at a power setting of 4. A total of 2500 shocks were delivered at a power setting of 4. There appeared to be good fragmentation of the stone. The patient tolerated the procedure well and was taken to the recovery room in good condition. Drains No Packing No Pathology none sent Complications No immediate complications Condition stable Disposition PACU
[2021-03-10] MEDS: fentaNYL CITRATE INJ (*CRX) 100 MCG/2 ML VIAL 25 MCG IV PUSH ×4 (13:56→14:17)
[2021-03-10] MEDS: oxyCODONE HCL (*CRX) 5 MG TAB IR PO (15:05)
== END 2021-03-10 15:20 | disposition home or self-care (01) ==
PROVIDERS: PCP Internal Medicine; Visit Provider Urology
PROC: (CPT 50590; principal; 2021-03-10 13:30)
DX: N20.0 Calculus of kidney (principal); R79.0 Abnormal level of blood mineral; M81.8 Other osteoporosis without current pathological fracture; D64.9 Anemia, unspecified; M19.90 Unspecified osteoarthritis, unspecified site; F41.9 Anxiety disorder, unspecified; G89.4 Chronic pain syndrome; K57.30 Diverticulosis of large intestine without perforation or abscess without bleeding; M79.7 Fibromyalgia; E03.9 Hypothyroidism, unspecified; E05.90 Thyrotoxicosis, unspecified without thyrotoxic crisis or storm; E87.6 Hypokalemia; E55.9 Vitamin D deficiency, unspecified; D84.9 Immunodeficiency, unspecified; K58.2 Mixed irritable bowel syndrome; E04.2 Nontoxic multinodular goiter; R35.89 Other polyuria; K27.9 Peptic ulcer, site unspecified, unspecified as acute or chronic, without hemorrhage or perforation; Z87.891 Personal history of nicotine dependence; F12.90 Cannabis use, unspecified, uncomplicated; E66.9 Obesity, unspecified; Z68.31 Body mass index [BMI] 31.0-31.9, adult
CPT/HCPCS: 50590; 36415; 74018; 85610; 85730; A9270; J0690; J1100; J2250; J2405; J2704; J3010; J7120

== ENCOUNTER 2021-04-28 16:28 | Outpatient (CLI) | payer BC, SELFPAY ==
--- NOTE | ~2021-04-28 | CT_ITS ---
EXAMINATION: CT abdomen pelvis wo con EXAM DATE: 04/28/2021 16:52 INDICATION: Left flank pain. TECHNIQUE: Spiral CT of the abdomen and pelvis was performed without contrast. Axial, coronal and sag ittal images were reviewed. The dose-length product (DLP) for this examination was 338.19 mGy-cm. T he exposure was tailored according to patient size (auto mA exposure control), and iterative reconstr uction (ASIR) was used as additional dose reduction technique. Comparison is made to prior examinatio n from 02/26/2021. FINDINGS: There are small mesenteric lymph nodes which were present on previous examination, now ther e is slight halo surrounding them a nonspecific finding but could indicate mesenteric adenitis or mes enteric panniculitis. No pathologically enlarged lymph nodes to suggest lymphoma/malignancy, or throm bosed vessels to suggest edema. Multiple small bilateral calyceal stones on the right and several on the left. No ureteral stones or hydronephrosis. The uterus and ovaries are unremarkable, no adnexal mass. The bladder is unremarkable. The liver, spleen, adrenal glands and pancreas are unremarkable . Gallbladder is unremarkable. No biliary obstruction. There is no retroperitoneal or pelvic lymph adenopathy. The appendix is normal. There is mild descending and sigmoid colonic diverticulosis. There is no adj acent inflammatory change to suggest diverticulitis. The stomach and small bowel are unremarkable. T here is expected amount of colonic stool. No free intraperitoneal gas. The heart is normal in siz e. There are no pericardial or pleural effusions. The lung bases are unremarkable. The bones are u nremarkable. IMPRESSION: 1. Development of mild mesenteric fat stranding surrounding small lymph nodes, possible mesenteric a denitis or panniculitis. 2. Small bilateral nonobstructing calyceal stones. 3. Mild colonic diverticulosis. Reviewed, dictated and finalized at location A. CTOR OF DIGITAL MARKETING IMPRESSION: 1. Development of mild mesenteric fat stranding surrounding small lymph nodes, possible mesenteric adenitis or panniculitis. 2. Small bilateral nonobstructing calyceal stones. 3. Mild colonic diverticulosis.
== END 2021-04-28 16:29 | disposition home or self-care (01) ==
LOC: ANHIMG 16:31
PROVIDERS: PCP Internal Medicine; Visit Provider Urology
DX: R10.9 Unspecified abdominal pain (principal); K57.30 Diverticulosis of large intestine without perforation or abscess without bleeding; N20.0 Calculus of kidney
CPT/HCPCS: 74176

== ENCOUNTER 2021-05-02 12:05 | Outpatient (CLI) | payer BC, SELFPAY ==
[2021-05-06 23:20] LABS: ANCA Screen Negative (Negative); Myeloperoxidase Ab <1.0 AI (<1.0); Proteinase-3 Ab <1.0 AI (<1.0); S cerevisiae Ab (IgA) 13.7 U (<=20.0); S cerevisiae Ab (IgG) 38.9 U (<=20.0)
== END 2021-05-02 12:06 | disposition home or self-care (01) ==
PROVIDERS: PCP Internal Medicine; Visit Provider Internal Medicine Gastroenterology
DX: R10.84 Generalized abdominal pain (principal)
CPT/HCPCS: 36415; 86036; 86671

== ENCOUNTER → 2021-05-12 03:11 | Outpatient (CLI) | payer BC, SELFPAY ==
[2021-05-12 21:56] LABS: SARS-CoV-2 RNA PCR Negative
== END ==
PROVIDERS: PCP Internal Medicine; Visit Provider Physician Assistant
DX: R68.89 Other general symptoms and signs (principal); Z20.822 Contact with and (suspected) exposure to COVID-19
CPT/HCPCS: C9803; U0003; U0005

== ENCOUNTER 2021-05-26 22:46 | Emergency (ER) | payer BC, SELFPAY ==
[2021-05-26 22:59] VITALS: PULSE 106; RESP 22; TEMP 36.8; O2SAT 100
--- NOTE | 2021-05-26 23:14 | ED.GENADULT ---
HPI - General Adult General Chief complaint: Unspecified Stated complaint: vomiting, fever, Time Seen by Provider: 05/26/21 22:53 Source: patient, family and RN notes reviewed Limitations: no limitations History of Present Illness HPI narrative: 46-year-old female presenting the [facility] department for evaluation of chronic abdominal pain and low-grade fever at home. Patient has had longstanding history of abdominal pain and has had an extensive work-up for this. Patient does have follow-up with GI and does have a colonoscopy scheduled. Patient states this evening she had a low-grade fever at home 99. Patient was concerned so she presented to the emergency department for evaluation. Patient had a recent medication change of her alprazolam and had been taking an increased dose. Patient states since taking the increased dose she had some increased fuzzy headed feelings . Patient states she is back down to her normal dose but states she still has the fuzzy headed feeling. Related Data Home Medications Medication Instructions Recorded Confirmed bupropion HCl 300 mg 24 hr tablet, 300 mg PO QPM 05/02/20 05/25/21 extended release duloxetine 20 mg capsule,delayed 40 mg PO HS 05/02/20 05/25/21 release ondansetron 8 mg disintegrating 8 mg PO Q12H PRN 05/02/20 05/25/21 tablet potassium citrate 15 mEq (1,620 1,620 mg PO BID 05/02/20 04/11/21 mg) tablet,extended release propranolol 10 mg tablet 10 mg PO QAM 05/02/20 05/25/21 trazodone 100 mg tablet 100 mg PO HS 05/02/20 05/25/21 Probiotic Pearls Complete 1 cap PO DAILY 09/15/20 05/25/21 alprazolam 1 mg PO BID PRN 09/15/20 05/25/21 cholecalciferol (vitamin D3) 5,000 unit PO DAILY 09/15/20 05/25/21 [Vitamin D3] cyanocobalamin (vitamin B-12) 1,000 mcg PO DAILY 09/15/20 05/25/21 abatacept [Orencia] 50 mg SUBCUT MONTHLY 05/25/21 05/25/21 leflunomide 20 mg PO DAILY 05/25/21 05/25/21 tamsulosin 0.4 mg PO DAILY PRN 05/25/21 05/25/21 Allergies Allergy/AdvReac Type Severity Reaction Status Date / Time No Known Allergies Allergy Verified 05/25/21 11:20 Review of Systems Review of Systems: CONSTITUTIONAL: Low-grade fever EYES: Denies visual changes, redness, or discharge. ENT: Denies rhinorrhea, congestion, sore throat, or otalgia. CARDIOVASCULAR: Denies chest pain, palpitations, or edema. RESPIRATORY: Denies cough or dyspnea. GASTROINTESTINAL: Mid abdominal pain that is similar to her baseline pain GENITOURINARY: Denies dysuria or hematuria. SKIN: Denies rash or itching. MUSCULOSKELETAL: Denies back pain, joint pain, or myalgia. NEUROLOGIC: Denies headache, numbness, or weakness. [facility] Past Medical History Medical History (Updated 05/27/21 @ 02:07 by Oscar Corado MD) Abdominal pain in female Abnormal serum lipase level Abnormal weight gain Acute cystitis without hematuria Acute diverticulitis Acute non-recurrent pansinusitis Acute shoulder pain Adult idiopathic generalized osteoporosis Age-related osteoporosis with current pathological fracture, unspecified ankle and foot, initial encounter for fracture Anemia Anxiety Arthralgia Arthritis of both knees Bilateral tinnitus Body mass index (bmi) 39.0-39.9, adult (01/12/19) Bone spur of left foot Chronic migraine Chronic narcotic use Chronic pain syndrome Cyst of ovary Diarrhea Dietary counseling and surveillance (08/25/15) Diverticulitis of large intestine without perforation or abscess Diverticulosis of intestine, part unspecified, without perforation or abscess with bleeding Duodenal ulcer Dysphagia Dysuria Meredith-Danlos syndrome Epigastric pain Establishing care with new doctor, encounter for Fatigue Fear of flying Fibromyalgia Gastric ulcer Gastroesophageal reflux disease Generalized abdominal pain Generalized anxiety disorder History of dislocation of knee History of kidney stones Hyperextension deformity of knee Hyperthyroidism Hypokalemia Hypovitaminosis D Immunosuppressed status Impingement syndrom
[2021-05-26 23:59] LABS: Basophils Absolute Auto 0.1 K/mm3 (0.0-0.1); Basophils Percent Auto 1.6 % (0.2-1.2); Eosinophils Absolute Auto 0.1 K/mm3 (0-0.3); Eosinophils Percent Auto 1.2 % (0-4.4); Hemoglobin 15.2 g/dL (12.0-15.0); Immature Granulocyte Absolute 0.03 K/mm3 (0.00-0.031); Immature Granulocyte Percent A 0.4 % (0-0.5); Lymphocytes Absolute Auto 1.71 K/mm3 (0.9-3.2); Lymphocytes Percent Auto 22.1 % (18.3-44.2); Mean Corpuscular HGB Conc 31.7 g/dl (32-36); Mean Corpuscular Hemoglobin 28.4 pg (26-34); Mean Corpuscular Volume 89.7 fl (80-100); Mean Platelet Volume 8.7 fl (7.4-10.4); Monocytes Absolute Auto 0.7 K/mm3 (0.1-0.6); Monocytes Percent Auto 9.3 % (2.6-8.5); Neutrophils Absolute Auto 5.1 K/mm3 (1.3-6.7); Neutrophils Percent Auto 65.4 % (45.5-73.1); Platelet Count Result 317 k/mm3 (150-375); Red Blood Count 5.35 M/mm3 (4.2-5.4); Red Cell Distribution Width 13.5 % (11.5-14.5); White Blood Count 7.7 K/mm3 (4.5-10.0)
[2021-05-27 00:18] LABS: Alanine Aminotransferase 28 U/L (4-35); Albumin Level 4.7 g/dL (3.5-5.1); Alkaline Phosphatase 101 U/L (38-126); Anion Gap 8 mmol/L (8-16); Aspartate Amino Transferase 23 U/L (14-36); Bilirubin,Total 0.7 mg/dL (0.2-1.3); Blood Urea Nitrogen 12 mg/dL (7-17); Calcium 9.2 mg/dL (8.4-10.2); Carbon Dioxide 25 mmol/L (22-30); Chloride 103 mmol/L (98-107); Estimated CRCL calculation 62 ml/min; Estimated Glomerular Filt Rate 48; Glucose 71 mg/dL (65-110); Lipase 478 U/L (23-300); Potassium 3.1 mmol/L (3.4-5.0); Sodium 136 mmol/L (137-145)
[2021-05-27 00:19] LABS: Lactic Acid Reflex 1.2 mmol/L (0.7-2.1)
[2021-05-27 00:26] LABS: Add Urine Microscopic? YES; Appearance Urine Clear (Clear); Bacteria Urine Trace /hpf; Bilirubin Urine Negative (Negative); Blood Urine 1+ (Negative); Color Urine Straw (Yellow); Glucose Urine UA Negative (Negative); Ketones Urine Negative (Negative); Leukocyte Esterase Ur Negative LEU/UL (Negative); Nitrate Urine Negative (Negative); Protein Urine Negative (Negative); RBC Urine 0-2 /hpf (0-2); Specific Grav Ur 1.006 (1.001-1.035); Squamous Epithelial Cell Urine Rare /hpf (Few); Urobilinogen Urine Negative mg/dL (<2.0); WBC Urine 0-3 /hpf
[2021-05-27] MEDS: SODIUM CHLORIDE 0.9% IV 1,000 ML 999 ML IV CONT (00:36)
[2021-05-27] MEDS: POTASSIUM CHLORIDE 20 MEQ PACKET (FOR LIQUID) 40 MEQ PO (00:37)
[2021-05-27] MEDS: ONDANSETRON INJ 4 MG/2 ML VIAL IV PUSH (00:46)
[2021-05-27] MEDS: HYDROmorphone HCL INJ (*CRX) 1 MG/ML SYR 0.5 MG IV PUSH (00:46)
[2021-05-27 01:49] VITALS: BP 125/89; PULSE 101; RESP 18; O2SAT 100
[2021-05-27] MEDS: HYDROcodone/acetaminophen (*CRX) 5-325 MG TABLET 1 TAB PO (02:08)
[2021-05-27 16:55] LABS: SARS-CoV-2 RNA PCR Negative
== END 2021-05-27 02:34 | disposition home or self-care (01) ==
PROVIDERS: Emergency Provider Emergency Medicine; PCP Internal Medicine
DX: R10.13 Epigastric pain (principal); Z20.822 Contact with and (suspected) exposure to COVID-19; M17.0 Bilateral primary osteoarthritis of knee; G89.4 Chronic pain syndrome; Q79.60 Ehlers-Danlos syndrome, unspecified; M79.7 Fibromyalgia; K21.9 Gastro-esophageal reflux disease without esophagitis; E05.90 Thyrotoxicosis, unspecified without thyrotoxic crisis or storm; K58.1 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 syndrome with constipation; M06.89 Other specified rheumatoid arthritis, multiple sites; F41.9 Anxiety disorder, unspecified; Z86.2 Personal history of diseases of the blood and blood-forming organs and certain disorders involving the immune mechanism; Z87.442 Personal history of urinary calculi; Z87.01 Personal history of pneumonia (recurrent); Z87.11 Personal history of peptic ulcer disease; Z87.440 Personal history of urinary (tract) infections; Z87.891 Personal history of nicotine dependence
CPT/HCPCS: 36415; 80053; 81001; 81025; 83605; 83690; 85025; 96361; 96374; 96375; 99284; A9270; C9803; J1170; J2405; J7030; U0003; U0005

== ENCOUNTER 2021-06-08 01:12 | Day surgery (SDC) | payer BC, SELFPAY ==
[2021-05-25 11:25] VITALS: BMI 29.2
--- NOTE | 2021-06-07 14:19 | PM.HPGS ---
History of Present Illness History of Present Illness Consent: Risks, benefits, and alternatives have been discussed and questions answered. Patient agrees to proceed with procedure. Chief complaint: diarrhea Narrative: Madalyn Smith is a 46 year old female who has been troubled with nausea and epigastric pain for several months now. The pain she has described to me as a twisting type discomfort in the lower substernal area. Now she describes it as a constant tenderness at the bottom of her sternum that is sore to the touch.An EGD in December was unremarkable except for showing a weak lower esophageal sphincter and some retained food in the stomach. At that time duodenal biopsies were normal and a specimen for H pylori was negative she was recently in the emergency room with epigastric pain. There she had a CT scan of the abdomen showing hepatic hemangiomas which she has had for few years well as nephrolithiasis and renal cysts. She had had right lower quadrant pain at that time. She subsequently has seen urology and a few weeks ago had lithotripsy with fragmentation of 3 of the 4 stones. Her bowel movements have been erratic with alternating loose and hard stools. She also gets cramping in her lower abdomen. She did well when she took Amitiza but has been off it for a while and would like to try it again. Review of Systems Review of Systems: All systems reviewed & are unremarkable except as noted in HPI and below PMFSH Past Medical History Medical History Abdominal pain in female Abnormal serum lipase level Abnormal weight gain Acute cystitis without hematuria Acute diverticulitis Acute non-recurrent pansinusitis Acute shoulder pain Adult idiopathic generalized osteoporosis Age-related osteoporosis with current pathological fracture, unspecified ankle and foot, initial encounter for fracture Anemia Anxiety Arthralgia Arthritis of both knees Bilateral tinnitus Body mass index (bmi) 39.0-39.9, adult (01/12/19) Bone spur of left foot Chronic migraine Chronic narcotic use Chronic pain syndrome Cyst of ovary Diarrhea Dietary counseling and surveillance (08/25/15) Diverticulitis of large intestine without perforation or abscess Diverticulosis of intestine, part unspecified, without perforation or abscess with bleeding Duodenal ulcer Dysphagia Dysuria Meredith-Danlos syndrome Epigastric pain Establishing care with new doctor, encounter for Fatigue Fear of flying Fibromyalgia Gastric ulcer Gastroesophageal reflux disease Generalized abdominal pain Generalized anxiety disorder History of dislocation of knee History of kidney stones Hyperextension deformity of knee Hyperthyroidism Hypokalemia Hypovitaminosis D Immunosuppressed status Impingement syndrome of right shoulder Irregular menses 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 syndrome with constipation 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 diarrhea 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 Low back pain Low TSH level Luteal cystic ovary disease Microscopic hematuria Migraine, unspecified, not intractable, without status migrainosus Multinodular goiter Muscle weakness of lower extremity Musculoskeletal pain Nausea Nephrolithiasis Nonintractable migraine Osteoarthritis of spine with radiculopathy, lumbar region Other chronic pain Overweight (11/22/16) Pain in both hands Pain of both hip joints Pain of left heel Pneumonia due to infectious organism Polyuria Prepatellar bursitis of both knees Prepatellar bursitis, left knee PUD (peptic ulcer disease) Rheumatoid arthritis of multiple sites with negative rheumatoid factor Rheumatoid arthritis of unspecified site with involvement of other organs and systems Right lower quadrant abdominal pain Swelling Swelling of finger joint of left hand Thyroid nodule Urinary symptom or sign Urinary tract infection without hematuria Weight loss Yeast vaginitis Surgical History Surgical History (Reviewed 06/08/21 @ 07:09 by Cesar
[2021-06-08 06:48] VITALS: BP 111/80; PULSE 106; RESP 18; TEMP 36.2; O2SAT 100
[2021-06-08] MEDS: LACTATED RINGERS 1,000 ML 150 ML IV CONT (06:51)
--- NOTE | 2021-06-08 06:55 | WPDANESEPPF ---
Anes - Initial Pre Proc Eval Procedure: Operation Date: 06/08/21 07:30 Proposed Procedures p Colonoscopy - Khoa Arias MD Date/Time: 06/08/21 06:55 Surgeon: Khoa Arias MD Pre Op Diagnosis: diarrhea Patient Data Age: 46 Gender: F Height: 1.68 m Weight: 84 kg Last Vital Signs Temp 36.2 C L 06/08/21 06:48 Pulse 106 H 06/08/21 06:48 Resp 18 06/08/21 06:48 BP 111/80 06/08/21 06:48 Pulse Ox 100 06/08/21 06:48 Allergies Allergy/AdvReac Type Severity Reaction Status Date / Time No Known Allergies Allergy Verified 06/08/21 06:46 Home Medications Medication Instructions Recorded Confirmed Type bupropion HCl 300 mg 24 hr tablet, 300 mg PO QPM 05/02/20 06/03/21 History extended release duloxetine 20 mg capsule,delayed 40 mg PO HS 05/02/20 06/03/21 History release ondansetron 8 mg disintegrating 8 mg PO Q12H PRN 05/02/20 06/03/21 History tablet potassium citrate 15 mEq (1,620 1,620 mg PO BID 05/02/20 06/03/21 History mg) tablet,extended release propranolol 10 mg tablet 10 mg PO QAM 05/02/20 06/03/21 History trazodone 100 mg tablet 100 mg PO HS 05/02/20 06/03/21 History Probiotic Pearls Complete 1 cap PO DAILY 09/15/20 06/03/21 History alprazolam 1 mg PO BID PRN 09/15/20 06/03/21 History cholecalciferol (vitamin D3) 5,000 unit PO DAILY 09/15/20 06/03/21 History [Vitamin D3] cyanocobalamin (vitamin B-12) 1,000 mcg PO DAILY 09/15/20 06/03/21 History pantoprazole 40 mg tablet,delayed 40 mg PO QAM #90 tablet 01/10/21 06/03/21 Rx release dicyclomine 20 mg tablet 20 mg PO QID PRN #120 tablet 04/11/21 06/03/21 Rx lubiprostone 24 mcg capsule 24 mcg PO DAILY #30 cap 04/11/21 06/03/21 Rx sumatriptan succinate 6 mg/0.5 mL See Rx Instructions .ROUTE 05/06/21 06/03/21 Rx subcutaneous pen injector .COMPLEX #2 ml abatacept [Orencia] 50 mg SUBCUT MONTHLY 05/25/21 06/03/21 History leflunomide 20 mg PO DAILY 05/25/21 06/03/21 History tamsulosin 0.4 mg PO DAILY PRN 05/25/21 06/03/21 History ciprofloxacin HCl 500 mg tablet 500 mg PO Q12H #20 tablet 05/31/21 05/31/21 Rx hydrocodone 5 mg-acetaminophen 325 1 tablet PO Q6H PRN #40 tablet 05/31/21 05/31/21 Rx mg tablet Patient hx anesthesia problems: none Family hx anesthesia problems: none Results Review: All pre-operative results and documents have been reviewed as part of the pre-operative evaluation. [facility] Past Medical History Medical History Abdominal pain in female Abnormal serum lipase level Abnormal weight gain Acute cystitis without hematuria Acute diverticulitis Acute non-recurrent pansinusitis Acute shoulder pain Adult idiopathic generalized osteoporosis Age-related osteoporosis with current pathological fracture, unspecified ankle and foot, initial encounter for fracture Anemia Anxiety Arthralgia Arthritis of both knees Bilateral tinnitus Body mass index (bmi) 39.0-39.9, adult (01/12/19) Bone spur of left foot Chronic migraine Chronic narcotic use Chronic pain syndrome Cyst of ovary Diarrhea Dietary counseling and surveillance (08/25/15) Diverticulitis of large intestine without perforation or abscess Diverticulosis of intestine, part unspecified, without perforation or abscess with bleeding Duodenal ulcer Dysphagia Dysuria Meredith-Danlos syndrome Epigastric pain Establishing care with new doctor, encounter for Fatigue Fear of flying Fibromyalgia Gastric ulcer Gastroesophageal reflux disease Generalized abdominal pain Generalized anxiety disorder History of dislocation of knee History of kidney stones Hyperextension deformity of knee Hyperthyroidism Hypokalemia Hypovitaminosis D Immunosuppressed status Impingement syndrome of right shoulder Irregular menses 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 syndrome with constipation 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 diarrhea long-term use of drug Low back pain Low TSH level Luteal cystic ovary disease Microscopic hematuria Migraine
[2021-06-08] MEDS: SIMETHICONE ORAL SUSPENSION 20 MG/0.3 ML 30 ML BOTTLE 0.6 ML IRRIGATION (07:34)
[2021-06-08 07:46] VITALS: BP 120/81; PULSE 84; RESP 24; O2SAT 98
[2021-06-08 07:56] VITALS: BP 117/76; PULSE 82; RESP 25; O2SAT 98
[2021-06-08 08:06] VITALS: BP 118/76; PULSE 81; RESP 19; O2SAT 99
== END 2021-06-08 08:14 | disposition home or self-care (01) ==
PROVIDERS: PCP Internal Medicine; Visit Provider Internal Medicine Gastroenterology
PROC: 0DJD8ZZ Inspection of Lower Intestinal Tract, Via Natural or Artificial Opening Endoscopic (ICD-10-PCS; CPT 45378; principal; 2021-06-08 07:30)
DX: R19.7 Diarrhea, unspecified (principal); K57.30 Diverticulosis of large intestine without perforation or abscess without bleeding; M81.0 Age-related osteoporosis without current pathological fracture; D64.9 Anemia, unspecified; Q79.60 Ehlers-Danlos syndrome, unspecified; F41.9 Anxiety disorder, unspecified; G89.4 Chronic pain syndrome; M79.7 Fibromyalgia; K21.9 Gastro-esophageal reflux disease without esophagitis; K58.1 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 syndrome with constipation; M06.9 Rheumatoid arthritis, unspecified; F12.90 Cannabis use, unspecified, uncomplicated; Z87.891 Personal history of nicotine dependence; E66.9 Obesity, unspecified; Z68.29 Body mass index [BMI] 29.0-29.9, adult; Z79.891 Long term (current) use of opiate analgesic
CPT/HCPCS: 45380; 88305; J2704; J7120

== ENCOUNTER 2021-07-20 10:53 | Outpatient (CLI) | payer BC, SELFPAY ==
[2021-07-20 11:13] LABS: Hematocrit 42.7 % (37.0-47.0); Hemoglobin 13.5 g/dL (12.0-15.0); Mean Corpuscular HGB Conc 31.6 g/dl (32-36); Mean Corpuscular Hemoglobin 28.7 pg (26-34); Mean Corpuscular Volume 90.7 fl (80-100); Mean Platelet Volume 8.5 fl (7.4-10.4); Platelet Count Result 301 k/mm3 (150-375); Red Blood Count 4.71 M/mm3 (4.2-5.4); Red Cell Distribution Width 14.6 % (11.5-14.5); White Blood Count 6.5 K/mm3 (4.5-10.0)
[2021-07-20 11:28] LABS: Alanine Aminotransferase 26 U/L (4-35); Alkaline Phosphatase 80 U/L (38-126); Anion Gap 7 mmol/L (8-16); Aspartate Amino Transferase 20 U/L (14-36); Bilirubin,Total 0.3 mg/dL (0.2-1.3); Blood Urea Nitrogen 13 mg/dL (7-17); CRP 0.9 mg/dL (<1.0); Calcium 8.8 mg/dL (8.4-10.2); Carbon Dioxide 23 mmol/L (22-30); Chloride 107 mmol/L (98-107); Estimated Glomerular Filt Rate > 60; Glucose 108 mg/dL (65-110); Lipase 414 U/L (23-300); Potassium 3.8 mmol/L (3.4-5.0); Sodium 137 mmol/L (137-145)
[2021-07-20 14:08] LABS: Erythrocyte Sedimentation Rate 15 mm/hr (0-20)
== END 2021-07-20 10:54 | disposition home or self-care (01) ==
LOC: ANHLAB 10:55
PROVIDERS: PCP Internal Medicine; Visit Provider Nurse Practitioner Family
DX: R10.13 Epigastric pain (principal)
CPT/HCPCS: 36415; 80053; 83690; 85027; 85652; 86140

== ENCOUNTER 2021-10-19 12:36 | Outpatient (CLI) | payer BC, SELFPAY ==
--- NOTE | ~2021-10-19 | XR_ITS ---
EXAMINATION: XR abdomen/kub 1V INDICATION: Renal stone TECHNIQUE: Supine views of the abdomen were obtained on 2 radiographs. COMPARISON: 04/28/2021 FINDINGS: There are multiple stones of the right kidney which measure up to 4 mm. Punctate left nephr olithiasis is also noted. Rounded calcifications of the left upper quadrant are consistent with old g ranulomatous disease of the spleen. The lung bases are clear. The bowel gas pattern is normal. IMPRESSION: 1. Bilateral nephrolithiasis. Reviewed, dictated and finalized at location F.
--- NOTE | ~2021-10-19 | CT_ITS ---
EXAMINATION: CT abdomen pelvis wo con DATE: 10/19/2021 13:05 INDICATION: Renal stones follow-up, left-sided pain TECHNIQUE: Computed tomography (CT) of the abdomen and pelvis was performed without intravenous contr ast. The dose-length product (DLP) was 355.71 mGy-cm. Automated exposure control and iterative recons truction technique were employed. COMPARISON: 04/28/2021 FINDINGS: Minimal dependent atelectasis is present in the lung bases. The heart size is normal. Punct ate calcifications in an otherwise normal spleen likely represent healed granulomatous disease. The l iver, pancreas, gallbladder, and adrenal glands are normal. There are multiple nonobstructing stones throughout the right kidney which measure up to 4 mm. No stones are identified in the ureters or blad christian. There is no hydronephrosis or hydroureter. Cysts of the kidneys measure up to 1.8 cm on the left No pathologically enlarged abdominal or pelvic lymph nodes are identified. There is no free intraper itoneal gas or evidence of bowel obstruction. . IMPRESSION: 1. Nonobstructing bilateral nephrolithiasis. Reviewed, dictated and finalized at location F.
== END 2021-10-19 12:37 | disposition home or self-care (01) ==
PROVIDERS: PCP Internal Medicine; Visit Provider Urology
DX: N20.0 Calculus of kidney (principal)
CPT/HCPCS: 74018; 74176

== ENCOUNTER → 2021-10-19 15:30 | Outpatient (CLI) | payer BC, SELFPAY ==
--- NOTE | ~2021-10-19 | MR_ITS ---
EXAMINATION: MR knee RT wo con DATE: 10/19/2021 16:19 INDICATION: Right knee pain TECHNIQUE: Magnetic resonance imaging (MRI) of the right knee was performed without intravenous contr ast. Sequences included coronal PD-weighted FSE, coronal PD-weighted FS FSE, sagittal T2-weighted FS E, sagittal PD-weighted FS FSE and axial PD weighted fat saturated FSE. COMPARISON: None. FINDINGS: Medial compartment: Medial meniscus is normal. Articular cartilage is normal. Lateral compartment: Lateral meniscus is normal. 5 mm diameter chondral lesion at the central aspect of the lateral tibial plateau with increased signal extending deep to the bone chondral interface and shallow depression a long the articular surface likely some combination of chondral ulceration, fissuring and/or blisterli ke delamination. No degenerative subchondral changes. Remaining articular cartilage is normal. Patellofemoral compartment: Deep chondral ulceration at the caudal aspect of the medial patellar facet, cold two thirds of the ap ical ridge with minimal underlying edema-like signal change. Additional less severe partial thickness cartilage loss along the lateral patellar facet with more focal oblique deep chondral flap tear with minimal underlying subarticular edema at the central aspect of the lateral facet. Extensive deep cho ndral ulceration and fissuring with underlying cortical irregularity and minimal subarticular edema a t the lateral trochlea and trochlear groove. Less severe partial thickness chondral ulceration along the medial trochlea without degenerative subchondral changes. Ligaments and tendons: Anterior and posterior cruciate ligaments are normal. The medial collateral ligament and fibular dilip ateral ligament complex are normal. Mild tendinopathy at the medial side of the distal quadriceps ten don and at the proximal patellar tendon. The visualized medial and lateral hamstring tendons as well as the iliotibial band are normal. Fluid: Physiologic amount of fluid in the joint space. No loose osteochondral bodies identified. Osseous/other: Normal marrow signal. No fracture or abnormal marrow replacing process. Mild scarring and multiple ti ny foci of susceptibility artifact along the medial and inferior margins of the patella likely relate d to prior surgery. Correlate with surgical history. IMPRESSION: 1. Mild osteoarthritis in the lateral and patellofemoral compartments with extensive high-grade chond romalacia in the patellofemoral compartment and small region of moderate to high-grade chondromalacia at the central aspect of the lateral tibial plateau. 2. Mild distal quadriceps and proximal patellar tendinopathy with some likely postoperative scarring along the medial and inferior margins of the patella. Correlate with surgical history. Reviewed, dictated and finalized at location A. IMPRESSION: 1. Mild osteoarthritis in the lateral and patellofemoral compartments with exte nsive high-grade chondromalacia in the patellofemoral compartment and small reg ion of moderate to high-grade chondromalacia at the central aspect of the later al tibial plateau. 2. Mild distal quadriceps and proximal patellar tendinopathy with some likely p ostoperative scarring along the medial and inferior margins of the patella. Cor relate with surgical history.
--- NOTE | ~2021-10-19 | MR_ITS ---
EXAMINATION: MR knee LT wo con DATE: 10/19/2021 16:28 INDICATION: Left knee pain TECHNIQUE: Magnetic resonance imaging (MRI) of the left knee was performed without intravenous contra st. Sequences included coronal PD-weighted FSE, coronal PD-weighted FS FSE, sagittal T2-weighted FSE , sagittal PD-weighted FS FSE and axial PD weighted fat saturated FSE. COMPARISON: None. FINDINGS: Medial compartment: Medial meniscus is normal. Articular cartilage is normal. Lateral compartment: Lateral meniscus is normal. Articular cartilage is normal. Patellofemoral compartment: Deep chondral ulceration at the patellar apical ridge and medial side of the lateral patellar facet w ith scattered underlying mild edema-like signal change. Extending 6 mm laterally from the region of u lceration is a nondisplaced chondral flap tear at the central aspect of the lateral patellar facet wh ich also extends deep to near the bone chondral interface. There is partial thickness cartilage loss with smooth chondral surface along the lateral half of the lateral trochlea. Ligaments and tendons: Anterior and posterior cruciate ligaments are normal. The medial collateral ligament and fibular dilip ateral ligament complex are normal. Quadriceps tendon is normal. Postoperative changes with utilizati on of a portion of the lateral aspect of the patellar tendon which extends from its origin at the inf erolateral aspect of the patella to an anchor site along the anteromedial rim of the healed tibial pl ateau. The visualized medial and lateral hamstring tendons as well as the iliotibial band are normal. Fluid: Physiologic amount of fluid in the joint space. No loose osteochondral bodies identified. Osseous/other: Bone alignment is normal. No fracture or pathologic marrow replacing process. IMPRESSION: 1. Mild to moderate patellofemoral osteoarthritis with high-grade patellar chondromalacia. 2. Postoperative changes with likely transposition of portion of the lateral side of the patellar ten don which extends from the inferolateral patella to the anteromedial margin of the medial tibial plat eau likely for patellar stabilization or maltracking correction. Reviewed, dictated and finalized at location A. IMPRESSION: 1. Mild to moderate patellofemoral osteoarthritis with high-grade patellar oren dromalacia. 2. Postoperative changes with likely transposition of portion of the lateral si de of the patellar tendon which extends from the inferolateral patella to the a nteromedial margin of the medial tibial plateau likely for patellar stabilizati on or maltracking correction.
== END ==
PROVIDERS: PCP Internal Medicine; Visit Provider Orthopaedic Surgery
DX: M17.0 Bilateral primary osteoarthritis of knee (principal)
CPT/HCPCS: 73721

== ENCOUNTER 2021-11-30 13:17 | Outpatient (CLI) | payer BC, SELFPAY ==
[2021-12-06 17:42] LABS: Pancreatic Elastase, Stool >500 mcg/g
== END 2021-11-30 13:18 | disposition home or self-care (01) ==
LOC: ANHLAB 13:20
PROVIDERS: PCP Internal Medicine
DX: R19.7 Diarrhea, unspecified (principal)
CPT/HCPCS: 82653

== ENCOUNTER 2021-12-12 01:11 | Day surgery (SDC) | payer BC, SELFPAY ==
--- NOTE | 2021-11-06 14:57 | PC.NURSE ---
Report to the Outpatient Waiting Room, entrance under the green pavilion located off [facility], at time 0700 on date 11/15/21. OR Time: 0900. - You and your visitor will be asked a series of questions to screen for COVID 19 for your protection. - Only one visitor is allowed at this time. - The patient visitor is requested to leave or wait in car when not with patient. - A mask is required within the hospital. Patients may have clear liquids (water, carbonated beverages, clear teas, apple juice) until 3 hours prior to surgery with a maximum of 20 ounces. - No food from midnight until time of surgery Take the following medications with a SIP of water the morning of surgery: ALPRAZOLAM (IF NEEDED), BUPROPION, PROPRANOLOL Medications to discontinue per physician: VITAMINS/SUPPLEMENTS Date to take last dose: 11/11/21 Please no make-up, nail pitcairn islander, hairspray, perfume, deodorant, or body powder the day of surgery. No jewelry (including any body piercings) or valuables the day of surgery, leave them at home. Please take a shower or bath the night before, or the morning of, surgery with an antibacterial soap. Wear comfortable, loose fitting clothing. - Jewelry must be removed prior to entering the operating room. Rings and piercings that are not removed may be cut off. - The hospital will not accept responsibility for valuables. - Please leave all valuables, including medications, at home the day of surgery. If you are going home after surgery, a licensed crude [employer] driver must drive you home. - NO public transportation without another adult. - We recommend that an adult stay with you for 24 hours following discharge. - We also recommend that you do not drive, make important decision, drink alcoholic beverages, or take any drugs that were not prescribed by your health care provider for at least 24 hours after your discharge time. Follow any additional instructions given to you from your surgeon. If you or anyone in your household have experienced Covid symptoms in the past week, please notify your surgeon or the nurse liaison at the phone number below for possible testing. Telephone instructions given to PT - JULIAN SAUER and asked if any additional questions and then verbalized understanding. Patient advised to call surgeon office or pre surgery nurse liaison [phone] if any additional questions.
--- NOTE | 2021-12-05 14:23 | PC.NURSE ---
Report to the Outpatient Waiting Room, entrance under the green pavilion located off [facility], at time _0900 on date 12/12/21__. OR Time: __1100__. - You and your visitor will be asked to self-screen and do not enter if you have any COVID symptoms. - Only one visitor and NO children visitors are allowed at this time. - The patient visitor is requested to leave or wait in car when not with patient due to restrictions. - A mask is required within the hospital. Patients may have clear liquids (water, carbonated beverages, clear teas, apple juice) until 3 hours prior to surgery with a maximum of 20 ounces. - No food from midnight until time of surgery - Infants may have breast milk until 4 hours before surgery, infant formula 6 hours prior to surgery. - Children will be allowed to drink immediately following surgery. If applicable, please bring a bottle or sippy cup to assist with drinking. Juice, water, soda, and popsicles are readily available. For infants on formula, please bring formula the day of surgery. Pacifiers are allowed. Take the following medications with a SIP of water the morning of surgery: ALPRAZOLAM, BUPROPION, PROPANOLOL Medications to discontinue per physician SUPPLIMENTS AND VITAMINS Date to take last dose 12/09/21___ Please no make-up, nail marshallese, hairspray, perfume, deodorant, or body powder the day of surgery. No jewelry (including any body piercings) or valuables the day of surgery, leave them at home. Please take a shower or bath the night before, or the morning of, surgery with an antibacterial soap. Wear comfortable, loose fitting clothing. Children are encouraged to wear pajamas. - Jewelry must be removed prior to entering the operating room. Rings and piercings that are not removed may be cut off. - The hospital will not accept responsibility for valuables. - Please leave all valuables, including medications, at home the day of surgery. If you are going home after surgery, a licensed dairy truck driver must drive you home. - NO public transportation without another adult. - We recommend that an adult stay with you for 24 hours following discharge. - We also recommend that you do not drive, make important decision, drink alcoholic beverages, or take any drugs that were not prescribed by your health care provider for at least 24 hours after your discharge time. For Pediatric surgeries, we recommend two adults accompany the child home (only one inside the building at this time). Follow any additional instructions given to you from your surgeon. If you or anyone in your household have experienced Covid symptoms in the past week, please notify your surgeon or the nurse liaison at the phone number below for possible testing. Telephone instructions given to _PATIENT_and asked if any additional questions and then verbalized understanding. Patient advised to call surgeon office or pre surgery nurse liaison [phone] if any additional questions.
--- NOTE | 2021-12-05 14:27 | PC.NURSE ---
PT DENIES ANY CHANGE IN HEALTH OR MEDICATIONS SINCE PRIOR INTERVIEW. NEW INSTRUCTIONS GIVEN, PT DENIES ANY QUESTIONS.
--- NOTE | 2021-12-11 11:33 | WPDANESEPPF ---
Anes - Initial Pre Proc Eval Procedure: Operation Date: 12/12/21 11:00 Proposed Procedures p Right Knee Arthroscopy - Jaden Langley MD Date/Time: 12/11/21 11:33 Surgeon: Jaden Langley MD Pre Op Diagnosis: Rt Knee Patellar Malalignment Patient Data Age: 46 Gender: F Height: 1.68 m Weight: 84.37 kg Allergies Allergy/AdvReac Type Severity Reaction Status Date / Time No Known Allergies Allergy Verified 12/12/21 09:30 Home Medications Medication Instructions Recorded Confirmed Type bupropion HCl 300 mg 24 hr tablet, 300 mg PO DAILY 05/02/20 12/12/21 History extended release duloxetine 20 mg capsule,delayed 40 mg PO HS 05/02/20 12/12/21 History release ondansetron 8 mg disintegrating 8 mg PO Q12H PRN Nausea 05/02/20 12/12/21 History tablet potassium citrate 15 mEq (1,620 1,620 mg PO BID 05/02/20 12/12/21 History mg) tablet,extended release propranolol 10 mg tablet 10 mg PO QAM 05/02/20 12/12/21 History trazodone 100 mg tablet 100 mg PO HS 05/02/20 12/12/21 History alprazolam 0.5 mg tablet 1 mg PO BID PRN Anxiety 09/15/20 12/12/21 History cholecalciferol (vitamin D3) 125 5,000 unit PO DAILY 09/15/20 12/12/21 History mcg (5,000 unit) tablet (Vitamin D3) cyanocobalamin (vitamin B-12) 1,000 mcg PO DAILY 09/15/20 12/12/21 History 1,000 mcg tablet lactobacillus combo no.13 1 1 cap PO DAILY 09/15/20 12/12/21 History billion cell capsule,delayed release (Probiotic Pearls Complete) pantoprazole 40 mg tablet,delayed See Rx Instructions .Route 07/06/21 12/12/21 Rx release .COMPLEX #90 tabs sumatriptan succinate 6 mg/0.5 mL See Rx Instructions .Route 08/25/21 11/08/21 Rx subcutaneous pen injector .COMPLEX #2 mL plecanatide 3 mg tablet (Trulance) 3 mg PO DAILY #30 tabs 09/08/21 12/12/21 Rx dicyclomine 20 mg tablet See Rx Instructions .Route 12/01/21 Rx .COMPLEX #120 tabs hydrocodone 5 mg-acetaminophen 325 1 tablet PO Q6H PRN pain #60 tabs 12/01/21 12/12/21 Rx mg tablet Patient hx anesthesia problems: none Family hx anesthesia problems: none Results Review: All pre-operative results and documents have been reviewed as part of the pre-operative evaluation. [facility] Past Medical History Medical History Abdominal pain in female Abnormal serum lipase level Abnormal weight gain Acute cystitis without hematuria Acute diverticulitis Acute non-recurrent pansinusitis Acute shoulder pain Adult idiopathic generalized osteoporosis Age-related osteoporosis with current pathological fracture, unspecified ankle and foot, initial encounter for fracture Anemia Anxiety Arthralgia Arthritis Arthritis of both knees Atrial tachycardia Bilateral tinnitus Body mass index (bmi) 39.0-39.9, adult (01/12/19) Bone spur of left foot Chills Chronic migraine Chronic narcotic use Chronic pain syndrome Cyst of ovary Diarrhea Dietary counseling and surveillance (08/25/15) Diverticulitis of large intestine without perforation or abscess Diverticulosis of intestine, part unspecified, without perforation or abscess with bleeding Duodenal ulcer Dysphagia Dysuria Meredith-Danlos syndrome Epigastric pain Establishing care with new doctor, encounter for Excessive thirst Fatigue Fear of flying Fibromyalgia Gastric ulcer Gastroesophageal reflux disease Generalized abdominal pain Generalized anxiety disorder History of dislocation of knee History of kidney stones Hoarseness Hyperextension deformity of knee Hyperthyroidism Hypokalemia Hypovitaminosis D IBS (irritable bowel syndrome) Immunosuppressed status Impingement syndrome of right shoulder Irregular menses 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 syndrome with constipation 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 diarrhea jail use of drug Low back pain Low TSH level Luteal cystic ovary disease Microscopic hematuria Migraine, unspecified, not intractable, without status migrainosus Multinodular goiter M
[2021-12-12] VITALS (14 sets, daily range): BP systolic 106–139; BP diastolic 60–75; PULSE 70–88; RESP 14–20; TEMP 36.7; O2SAT 88–100
--- NOTE | 2021-12-12 07:11 | WPDHPUPDATE1 ---
History and Physical Update Update Date/Time: 12/12/21 07:11 History and Physical has been reviewed, including an updated exam of the patient. There are NO changes in the patient's condition. Risks, benefits, and alternatives have been discussed and questions answered. Patient agrees to proceed with procedure.
[2021-12-12] MEDS: ACETAMINOPHEN 500 MG TABLET 1000 MG PO (09:37)
[2021-12-12] MEDS: CELECOXIB 200 MG CAPSULE PO (09:37)
--- NOTE | 2021-12-12 09:47 | SUR.PREOP ---
pt states has used crutches before and comfortable with use.,ordered crutches for pt discharge.
[2021-12-12] MEDS: LACTATED RINGERS 1,000 ML 30 ML IV CONT ×3 (10:03→15:45)
--- NOTE | 2021-12-12 10:25 | SUR.PREOP ---
pt informed delay in procedure
--- NOTE | 2021-12-12 12:34 | SUR.PREOP ---
Discussed continued delay with hope of going to surgery in next 20 minutes. Nervous and upset but no other needs.
[2021-12-12] MEDS: MIDAZOLAM HCL (*CRX) 2 MG/2 ML VIAL IV PUSH ×2 (12:53→15:19)
--- NOTE | 2021-12-12 13:17 | PM.IMHP ---
H&P: HPI History of Present Illness Date/Time: 12/12/21 13:17 Chief Complaint: RIGHT KNEE PAIN Narrative: Knee Pain Pt presents with bilateral knee pain that has been chronic, non-traumatic.Pt states she has a history of dislocations and had bilateral knee surgeries in the . She states she was doing well until about 10 years ago. She states her knees give out frequently and feel very weak. She has aching at the suprapatellar and infrapatellar regions of both knees. She also notes frequent swelling. She ambulates with a cane for prolonged distances. She also utilizes bilateral J-braces, daily, which do help with her stability. She has done PT in the past and states she feels her strength increased but her knees have continued to give out. She has not undergone intra-articular cortisone injections but states she was told to avoid them d/t her Osteoporosis. She takes Tylenol and Ibuprofen for her pain and was recently started on [place] by her PCP. She underwent bilateral knee MRIs 10/19/21. She is here to discuss results and poc. Pt previously dx w/ Meredith-Danlos syndrome., Osteoporosis, and RA w/ negative RF. Pt also reports possible Psoriatic Arthritis. Involved knee: bilateral Onset: gradual Location of pain: anterior, superior and inferior Character: dull ache Timing of pain: intermittent Exacerbated by: kneeling, squatting, stairs and prolonged activity Relieved by: Tylenol, brace, elevation, ice, rest and NSAIDs Associated symptoms: Reports swelling, clicking, instability, buckling, giving way and shifting History of occupational/recreational activity with repetitive motion: No History of prior knee injury: Yes Review of Systems Review of Systems: All systems reviewed & are unremarkable except as noted in HPI and below [facility] Past Medical History Medical History Abdominal pain in female Abnormal serum lipase level Abnormal weight gain Acute cystitis without hematuria Acute diverticulitis Acute non-recurrent pansinusitis Acute shoulder pain Adult idiopathic generalized osteoporosis Age-related osteoporosis with current pathological fracture, unspecified ankle and foot, initial encounter for fracture Anemia Anxiety Arthralgia Arthritis Arthritis of both knees Atrial tachycardia Bilateral tinnitus Body mass index (bmi) 39.0-39.9, adult (01/12/19) Bone spur of left foot Chills Chronic migraine Chronic narcotic use Chronic pain syndrome Cyst of ovary Diarrhea Dietary counseling and surveillance (08/25/15) Diverticulitis of large intestine without perforation or abscess Diverticulosis of intestine, part unspecified, without perforation or abscess with bleeding Duodenal ulcer Dysphagia Dysuria Meredith-Danlos syndrome Epigastric pain Establishing care with new doctor, encounter for Excessive thirst Fatigue Fear of flying Fibromyalgia Gastric ulcer Gastroesophageal reflux disease Generalized abdominal pain Generalized anxiety disorder History of dislocation of knee History of kidney stones Hoarseness Hyperextension deformity of knee Hyperthyroidism Hypokalemia Hypovitaminosis D IBS (irritable bowel syndrome) Immunosuppressed status Impingement syndrome of right shoulder Irregular menses 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 syndrome with constipation 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 diarrhea 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
[2021-12-12] MEDS: ceFAZolin 2 GM/D5W 50 ML 2 GM/50 ML BAG IVPB (13:30)
[2021-12-12] MEDS: BUPIVACAINE HCL 0.5% PF 30 ML VIAL INFILTRATE (13:49)
--- NOTE | 2021-12-12 14:38 | W.PM.PROC2 ---
Procedure Note - Detailed Date of Procedure 12/12/21 Pre-op Diagnosis Rt Knee Patellar Malalignment, severe chondromalacia Post-op Diagnosis Same Procedure Performed RIGHT KNEE SCOPE Surgeon Jaden Langley MD Anesthesia General Description of Procedure PATIENT WAS TAKEN TO THE OPERATING ROOM SUITE. ANESTHESIA WAS INDUCED. THE RIGHT LEG WAS PREPPED AND DRAPED STERILE. TROCARS WERE PLACED IN TO THE KNEE JOINT IN THE USUAL FASHION. THE CAMERA WAS INTRODUCED. THERE WAS MODERATE CHONDROMALACIA TO THE PATELLA FEMORAL JOINT. THERE WAS A LOT OF SYNOVITIS IN ALL COMPARTMENTS. THE MEDIAL COMPARTMENT SHOWED NO CHONDROMALACIA TO THE MEDIAL FEMORAL CONDYLE OR PLATEAU. THERE WAS NO MEDIAL MENISCUS TEAR. THE ACL WAS INTACT. THE LATERAL MENISCUS WAS NOT TORN. THE LATERAL COMPARTMENT HAD GRADE 2 CHONDROMALACIA AT THE LATERAL PLATEAU. CHONDROPLASTY WAS PREFORMED. A SYNOVECTOMY WAS PREFORMED. THE PATELLO FEMORAL JOINT UNDERWENT CHONDROPLASTY OVER THE PATELLA AND TROCHLEA. THERE WAS GRADE 3 CHONDROMALACIA IN THE MAJORITY OF THE OF THE PATELLA AND TROCHLEA. THE PATELLA WAS TRACKING WELL WITH THE TROCHLEA. THERE WAS NO TILT. SYNOVECTOMY WAS PREFORMED IN THE SUPERIOR MEDIAL COMPARTMENT. THE WOUNDS WERE APPROXIMATED WITH 4.0 NYLON. STERILE DRESSING WAS APPLIED. PATIENT WAS EXTUBATED. Estimated Blood Loss 5 Complications No immediate complications Condition Stable Disposition PACU
[2021-12-12] MEDS: fentaNYL CITRATE INJ (*CRX) 100 MCG/2 ML VIAL 25 MCG IV PUSH ×8 (14:44→15:04)
[2021-12-12] MEDS: ONDANSETRON INJ 4 MG/2 ML VIAL IV PUSH (15:17)
[2021-12-12] MEDS: HYDROmorphone HCL INJ (*CRX) 1 MG/ML SYR 0.5 MG IV PUSH ×4 (15:22→16:20)
== END 2021-12-12 17:00 | disposition home or self-care (01) ==
PROVIDERS: PCP Internal Medicine; Visit Provider Orthopaedic Surgery
PROC: (CPT 29870; principal; 2021-12-12 11:00)
DX: M22.41 Chondromalacia patellae, right knee (principal); M25.561 Pain in right knee; M65.861 Other synovitis and tenosynovitis, right lower leg; Q79.60 Ehlers-Danlos syndrome, unspecified; K21.9 Gastro-esophageal reflux disease without esophagitis; Z87.891 Personal history of nicotine dependence
CPT/HCPCS: 29877; A9270; J0690; J1100; J1170; J1200; J1885; J2250; J2405; J2704; J3010; J7120

== ENCOUNTER 2022-01-09 00:48 | Day surgery (SDC) | payer BC, SELFPAY ==
[2022-01-03 11:20] VITALS: BMI 31.8
--- NOTE | 2022-01-03 11:26 | PC.NURSE ---
Report to the Outpatient Waiting Room, entrance under the green pavilion located off [facility], at time 1030 on date 01/09/22. OR Time: 1230. Time changes happen often and if your time is changed the preop area will call you the afternoon before. - You and your visitor will be asked to self-screen and do not enter if you have any COVID symptoms. - Only one visitor and NO children visitors are allowed at this time. - The patient visitor is requested to leave or wait in car when not with patient due to restrictions. - A mask is required within the hospital. Patients may have clear liquids (water, carbonated beverages, clear teas, apple juice) until 3 hours prior to surgery with a maximum of 20 ounces. - No food from midnight until time of surgery Take the following medications with a SIP of water the morning of surgery: ALPRAZOLAM (IF NEEDED), BUPROPION, PROPRANOLOL Medications to discontinue per physician: VITAMINS/SUPPLEMENTS Date to take last dose: 01/05/22 Please no make-up, nail icelandic, hairspray, perfume, deodorant, or body powder the day of surgery. No jewelry (including any body piercings) or valuables the day of surgery, leave them at home. Please take a shower or bath the night before, or the morning of, surgery with an antibacterial soap. Wear comfortable, loose fitting clothing. - Jewelry must be removed prior to entering the operating room. Rings and piercings that are not removed may be cut off. - The hospital will not accept responsibility for valuables. - Please leave all valuables, including medications, at home the day of surgery. If you are going home after surgery, a licensed shuttle bus driver must drive you home. - NO public transportation without another adult. - We recommend that an adult stay with you for 24 hours following discharge. - We also recommend that you do not drive, make important decision, drink alcoholic beverages, or take any drugs that were not prescribed by your health care provider for at least 24 hours after your discharge time. Follow any additional instructions given to you from your surgeon. If you or anyone in your household have experienced Covid symptoms in the past week, please notify your surgeon or the nurse liaison at the phone number below for possible testing. Telephone instructions given to PT - JULIAN SHASHEK and asked if any additional questions and then verbalized understanding. Patient advised to call surgeon office or pre surgery nurse liaison [phone] if any additional questions.
[2022-01-09] VITALS (9 sets, daily range): BP systolic 106–138; BP diastolic 66–92; PULSE 76–99; RESP 16–18; TEMP 36.2–36.5; O2SAT 95–100
--- NOTE | 2022-01-09 07:15 | WPDHPUPDATE1 ---
History and Physical Update Update Date/Time: 01/09/22 07:15 History and Physical has been reviewed, including an updated exam of the patient. There are NO changes in the patient's condition. Risks, benefits, and alternatives have been discussed and questions answered. Patient agrees to proceed with procedure.
--- NOTE | 2022-01-09 11:27 | WPDANESEPPF ---
Anes - Initial Pre Proc Eval Procedure: Operation Date: 01/09/22 12:30 Proposed Procedures p Left Knee Arthroscopy with Possible Lateral Release - Jaden Langley MD Date/Time: 01/09/22 11:27 Surgeon: Jaden Langley MD Pre Op Diagnosis: Lt Knee Chondromalacia Patient Data Age: 46 Gender: F Height: 1.68 m Weight: 89.4 kg Allergies Allergy/AdvReac Type Severity Reaction Status Date / Time No Known Allergies Allergy Verified 01/03/22 11:18 Home Medications Medication Instructions Recorded Confirmed Type bupropion HCl 300 mg 24 hr tablet, 300 mg PO DAILY 05/02/20 01/03/22 History extended release duloxetine 20 mg capsule,delayed 40 mg PO HS 05/02/20 01/03/22 History release ondansetron 8 mg disintegrating 8 mg PO Q12H PRN Nausea 05/02/20 01/03/22 History tablet potassium citrate 15 mEq (1,620 1,620 mg PO BID 05/02/20 01/03/22 History mg) tablet,extended release propranolol 10 mg tablet 10 mg PO QAM 05/02/20 01/03/22 History trazodone 100 mg tablet 100 mg PO HS 05/02/20 01/03/22 History alprazolam 0.5 mg tablet 1 mg PO BID PRN Anxiety 09/15/20 01/03/22 History cholecalciferol (vitamin D3) 125 5,000 unit PO DAILY 09/15/20 01/03/22 History mcg (5,000 unit) tablet (Vitamin D3) cyanocobalamin (vitamin B-12) 1,000 mcg PO DAILY 09/15/20 01/03/22 History 1,000 mcg tablet lactobacillus combo no.13 1 1 cap PO DAILY 09/15/20 01/03/22 History billion cell capsule,delayed release (Probiotic Pearls Complete) sumatriptan succinate 6 mg/0.5 mL See Rx Instructions .Route 08/25/21 01/03/22 Rx subcutaneous pen injector .COMPLEX #2 mL plecanatide 3 mg tablet (Trulance) 3 mg PO DAILY #30 tabs 09/08/21 01/03/22 Rx pantoprazole 40 mg tablet,delayed See Rx Instructions .Route 12/28/21 01/03/22 Rx release .COMPLEX #90 tabs dicyclomine 20 mg tablet See Rx Instructions .Route 01/01/22 01/03/22 Rx .COMPLEX #120 tabs hydrocodone 5 mg-acetaminophen 325 1 tablet PO BID PRN pain #8 tabs 01/05/22 Rx mg tablet Patient hx anesthesia problems: none Family hx anesthesia problems: none Results Review: All pre-operative results and documents have been reviewed as part of the pre-operative evaluation. [facility] Past Medical History Medical History Abdominal pain in female Abnormal serum lipase level Abnormal weight gain Acute cystitis without hematuria Acute diverticulitis Acute non-recurrent pansinusitis Acute shoulder pain Adult idiopathic generalized osteoporosis Age-related osteoporosis with current pathological fracture, unspecified ankle and foot, initial encounter for fracture Anemia Anxiety Arthralgia Arthritis Arthritis of both knees Atrial tachycardia Bilateral tinnitus Body mass index (bmi) 39.0-39.9, adult (01/12/19) Bone spur of left foot Chills Chronic migraine Chronic narcotic use Chronic pain syndrome Cyst of ovary Diarrhea Dietary counseling and surveillance (08/25/15) Diverticulitis of large intestine without perforation or abscess Diverticulosis of intestine, part unspecified, without perforation or abscess with bleeding Duodenal ulcer Dysphagia Dysuria Meredith-Danlos syndrome Epigastric pain Establishing care with new doctor, encounter for Excessive thirst Fatigue Fear of flying Fibromyalgia Gastric ulcer Gastroesophageal reflux disease Generalized abdominal pain Generalized anxiety disorder History of dislocation of knee History of kidney stones Hoarseness Hyperextension deformity of knee Hyperthyroidism Hypokalemia Hypovitaminosis D IBS (irritable bowel syndrome) Immunosuppressed status Impingement syndrome of right shoulder Irregular menses 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 syndrome with constipation 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 diarrhea 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
[2022-01-09] MEDS: ACETAMINOPHEN 500 MG TABLET 1000 MG PO (11:28)
[2022-01-09] MEDS: CELECOXIB 200 MG CAPSULE PO (11:29)
[2022-01-09] MEDS: LACTATED RINGERS 1,000 ML 30 ML IV CONT ×2 (12:11→14:50)
--- NOTE | 2022-01-09 12:28 | SUR.PREOP ---
PT STATES HAS CRUTCHES AND IS PROFICIENT WITH USE
[2022-01-09] MEDS: ceFAZolin 2 GM/D5W 50 ML 2 GM/50 ML BAG IVPB (12:52)
--- NOTE | 2022-01-09 14:04 | W.PM.PROC2 ---
Procedure Note - Detailed Date of Procedure 01/09/22 Pre-op Diagnosis Lt Knee Chondromalacia Post-op Diagnosis Same Procedure Performed LEFT KNEE SCOPE WITH ABRASION ARTHROPLASTY/MICROFRACTURE LEFT PATELLA, MINOR SYNOVECTOMY Surgeon Jaden Langley MD Anesthesia General Description of Procedure PATIENT WAS TAKEN TO THE OR. LEFT LEG WAS PREPPED AND DRAPED STERILE. TROCARS WERE PLACED IN THE USUAL FASHION. CAMERA WAS INTRODUCED. THERE WAS SEVERE CHONDROMALACIA TO THE PATELLA. THERE WERE COMPLETE OSTEOCHONDRAL LESIONS WELL. THERE WAS A LOT OF SYNOVITIS IN THE SUPERIOR MEDIAL COMPARTMENT. THE MEDIAL COMPARTMENT SHOWED NO CHONDROMALACIA TO THE MEDIAL FEMORAL CONDYLE. THERE WAS NO MEDIAL MENISCUS TEAR. THE ACL WAS INTACT. THE LATERAL MENISCUS WAS NOT TORN. THE LATERAL COMPARTMENT HAD MINIMAL CHONDROMALACIA. THE PATELLA UNDERWENT CHONDROPLASTY. THERE WAS GRADE 2 AND 3 CHONDROMALACIA IN PART OF THE PATELLA. THE COMPLETE OSTEOCHONDRAL DEFECTS WERE TREATED WITH [place]WALD PICKS AND AN ABRASION ARTHROPLASTY/MICROFRACTURE TECHNIQUE WAS PREFORMED UNTIL THERE WAS GOOD BLEEDING BONE. SYNOVECTOMY WAS PREFORMED IN THE SUPERIOR MEDIAL COMPARTMENT. THE PATELLA TRACKED WELL WITHIN THE TROCHLEA. THE WOUNDS WERE APPROXIMATED WITH 4.0 NYLON. STERILE DRESSING WAS APPLIED. PATIENT WAS EXTUBATED. Estimated Blood Loss -10.0 Complications No immediate complications Condition Stable Disposition PACU
[2022-01-09] MEDS: fentaNYL CITRATE INJ (*CRX) 100 MCG/2 ML VIAL 25 MCG IV PUSH ×3 (14:26→14:42)
[2022-01-09] MEDS: ONDANSETRON INJ 4 MG/2 ML VIAL IV PUSH (14:36)
[2022-01-09] MEDS: HYDROmorphone HCL INJ (*CRX) 1 MG/ML SYR 0.5 MG IV PUSH ×3 (14:49→15:46)
[2022-01-09] MEDS: oxyCODONE HCL (*CRX) 5 MG TAB IR PO (15:13)
== END 2022-01-09 16:15 | disposition home or self-care (01) ==
PROVIDERS: PCP Internal Medicine; Visit Provider Orthopaedic Surgery
PROC: (CPT 29870; principal; 2022-01-09 12:30)
DX: M22.42 Chondromalacia patellae, left knee (principal); M65.862 Other synovitis and tenosynovitis, left lower leg; M06.9 Rheumatoid arthritis, unspecified; M81.0 Age-related osteoporosis without current pathological fracture; K58.1 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 syndrome with constipation; E55.9 Vitamin D deficiency, unspecified; F41.1 Generalized anxiety disorder; M79.7 Fibromyalgia; Q79.60 Ehlers-Danlos syndrome, unspecified; G89.4 Chronic pain syndrome; D64.9 Anemia, unspecified; Z79.891 Long term (current) use of opiate analgesic; Z87.891 Personal history of nicotine dependence; F12.90 Cannabis use, unspecified, uncomplicated
CPT/HCPCS: 29879; A9270; J0690; J1100; J1170; J2250; J2405; J2704; J3010; J7120

== ENCOUNTER 2022-02-15 23:00 | Emergency (ER) | payer BC, SELFPAY ==
--- NOTE | ~2022-02-15 | XR_ITS ---
EXAMINATION: XR chest 2V DATE: 02/15/2022 23:32 INDICATION: Chest pain TECHNIQUE: PA and lateral views of the chest are obtained. COMPARISON: 05/27/2019 FINDINGS: The lungs are free of acute opacities. No pleural effusion or pneumothorax. The cardiomedia stinal silhouette is normal. There is mild thoracic spondylosis. IMPRESSION: 1. No acute cardiopulmonary abnormality. Reviewed, dictated and finalized at location F.
--- NOTE | ~2022-02-15 | CT_ITS ---
EXAMINATION: CTA chest PE protocol DATE: 02/16/2022 03:19 INDICATION: Chest pain, history of Ehler Danlos TECHNIQUE: Computed tomography angiography (CTA) of the chest was performed with 100 mL Omnipaque-350 intravenous contrast timed to evaluate the pulmonary arteries. Coronal maximum intensity projection 3D-reconstructions were created by the technologist. The dose-length product (DLP) was 444.56 mGy-cm. Automated exposure control and iterative reconstruction technique were employed. COMPARISON: 01/08/2021 FINDINGS: The pulmonary arteries are well-opacified. No pulmonary embolism is identified. The lungs a re free of acute opacities. No pleural effusion or pneumothorax. No pathologically enlarged thoracic lymph nodes are identified. The heart size is normal. Calcified left hilar lymph nodes are consistent with old granulomatous disease. No aneurysm or dissection of the aorta is identified. There are two stable hyperenhancing masses in the right hepatic lobe, consistent with flash filling hemangiomas or focal nodular hyperplasia. There are stones of the kidneys. Mild thoracic spondylosis is noted. IMPRESSION: 1. No pulmonary embolism or acute cardiopulmonary abnormality. Reviewed, dictated and finalized at location F.
--- NOTE | 2022-02-15 23:02 | ECG_ITS ---
Measurements Intervals [place] Rate: 106 P: 20 TX: 128 QRS: 12 QRSD: 85 T: 17 QT: 332 QTc: 442 Interpretive Statements SINUS TACHYCARDIA BORDERLINE ECG POOR R-WAVE PROGRESSION COMPARED TO ECG 01/08/2021 23:39:22 HEART RATE HAS INCREASED Electronically Signed On 02-16-2022 16:38:31 CDT by Timothy Gomez M.D.
[2022-02-15 23:03] VITALS: BP 150/94; PULSE 111; RESP 16; TEMP 36.6; O2SAT 98
[2022-02-15 23:26] VITALS: PULSE 120
[2022-02-15 23:28] LABS: Basophils Absolute Auto 0.1 K/mm3 (0.0-0.1); Basophils Percent Auto 0.9 % (0.2-1.2); Eosinophils Absolute Auto 0.2 K/mm3 (0-0.3); Hematocrit 40.9 % (37.0-47.0); Hemoglobin 12.9 g/dL (12.0-15.0); Immature Granulocyte Absolute 0.06 K/mm3 (0.00-0.031); Immature Granulocyte Percent A 0.8 % (0-0.5); Lymphocytes Absolute Auto 2.04 K/mm3 (0.9-3.2); Lymphocytes Percent Auto 27.2 % (18.3-44.2); Mean Corpuscular HGB Conc 31.5 g/dl (32-36); Mean Corpuscular Hemoglobin 28.4 pg (26-34); Mean Corpuscular Volume 90.1 fl (80-100); Mean Platelet Volume 8.7 fl (7.4-10.4); Monocytes Absolute Auto 0.4 K/mm3 (0.1-0.6); Monocytes Percent Auto 5.9 % (2.6-8.5); Neutrophils Absolute Auto 4.8 K/mm3 (1.3-6.7); Neutrophils Percent Auto 63.2 % (45.5-73.1); Platelet Count Result 330 k/mm3 (150-375); Red Blood Count 4.54 M/mm3 (4.2-5.4); Red Cell Distribution Width 13.5 % (11.5-14.5); White Blood Count 7.5 K/mm3 (4.5-10.0)
[2022-02-15 23:35] LABS: Prothrombin Time 12.4 Seconds (11.1-14.7)
[2022-02-15 23:36] LABS: Partial Thromboplastin Time 30.1 SECONDS (22.3-36.8)
[2022-02-15 23:37] LABS: Alanine Aminotransferase 37 U/L (6-35); Albumin Level 4.5 g/dL (3.5-5.1); Alkaline Phosphatase 91 U/L (38-126); Anion Gap 11 mmol/L (8-16); Aspartate Amino Transferase 33 U/L (14-36); Bilirubin,Total 0.5 mg/dL (0.2-1.3); Blood Urea Nitrogen 12 mg/dL (7-17); Calcium 8.6 mg/dL (8.4-10.2); Carbon Dioxide 24 mmol/L (22-30); Chloride 101 mmol/L (98-107); Estimated CRCL calculation 68 ml/min; Estimated Glomerular Filt Rate 59; Glucose 106 mg/dL (65-110); Lipase 345 U/L (23-300); Potassium 3.4 mmol/L (3.4-5.0); Sodium 136 mmol/L (137-145)
[2022-02-15 23:48] LABS: Troponin I < 0.012 ng/mL (0.000-0.034)
[2022-02-16] VITALS (23 sets, daily range): BP systolic 105–155; BP diastolic 79–113; PULSE 96–112; RESP 11–36; O2SAT 86–100
[2022-02-16] MEDS: ASPIRIN 81 MG CHEWABLE TABLET 324 MG PO (00:03)
[2022-02-16] MEDS: NITROGLYCERIN SL 0.4 MG TABLET SUBLINGUAL (00:14)
[2022-02-16] MEDS: MORPHINE SULFATE (*CRX) 4 MG/ML INJ IV PUSH (00:23)
[2022-02-16] MEDS: HYDROmorphone HCL INJ (*CRX) 1 MG/ML SYR IV PUSH (01:51)
--- NOTE | 2022-02-16 02:04 | ED.GENADULT ---
HPI - General Adult General Chief complaint: Chest Pain Stated complaint: chest pain Time Seen by Provider: 02/15/22 23:47 History of Present Illness HPI narrative: Patient is a 46-year-old female who presents to the emergency department with chief complaint of chest pain. The patient reports the pain started approximately 3 hours ago reports she is unable to get comfortable reports that she has history of Erler Danlos. The patient denies a ripping like sensation reports it feels like a pressure type sensation. Patient reports no prior history of cardiac disease but did report that her heart was beating fast whenever she was having pain. Related Data Home Medications Medication Instructions Recorded Confirmed bupropion HCl 300 mg 24 hr tablet, 300 mg PO DAILY 05/02/20 01/26/22 extended release duloxetine 20 mg capsule,delayed 40 mg PO HS 05/02/20 01/26/22 release ondansetron 8 mg disintegrating 8 mg PO Q12H PRN Nausea 05/02/20 01/26/22 tablet potassium citrate 15 mEq (1,620 1,620 mg PO BID 05/02/20 01/26/22 mg) tablet,extended release propranolol 10 mg tablet 10 mg PO QAM 05/02/20 01/26/22 trazodone 100 mg tablet 100 mg PO HS 05/02/20 01/26/22 alprazolam 0.5 mg tablet 1 mg PO BID PRN Anxiety 09/15/20 01/26/22 cholecalciferol (vitamin D3) 125 5,000 unit PO DAILY 09/15/20 01/26/22 mcg (5,000 unit) tablet (Vitamin D3) cyanocobalamin (vitamin B-12) 1,000 mcg PO DAILY 09/15/20 01/26/22 1,000 mcg tablet lactobacillus combo no.13 1 1 cap PO DAILY 09/15/20 01/26/22 billion cell capsule,delayed release (Probiotic Pearls Complete) Allergies Allergy/AdvReac Type Severity Reaction Status Date / Time No Known Allergies Allergy Verified 02/15/22 23:25 Review of Systems Review of Systems: A 10 system review of systems was completed on the patient and is negative except for what is stated in the HPI. Nursing and ancillary documentation was reviewed. [facility] Past Medical History Medical History Abdominal pain in female Abnormal serum lipase level Abnormal weight gain Acute cystitis without hematuria Acute diverticulitis Acute non-recurrent pansinusitis Acute shoulder pain Adult idiopathic generalized osteoporosis Age-related osteoporosis with current pathological fracture, unspecified ankle and foot, initial encounter for fracture Anemia Anxiety Arthralgia Arthritis Arthritis of both knees Atrial tachycardia Bilateral tinnitus Body mass index (bmi) 39.0-39.9, adult (01/12/19) Bone spur of left foot Chills Chronic migraine Chronic narcotic use Chronic pain syndrome Cyst of ovary Diarrhea Dietary counseling and surveillance (08/25/15) Diverticulitis of large intestine without perforation or abscess Diverticulosis of intestine, part unspecified, without perforation or abscess with bleeding Duodenal ulcer Dysphagia Dysuria Meredith-Danlos syndrome Epigastric pain Establishing care with new doctor, encounter for Excessive thirst Fatigue Fear of flying Fibromyalgia Gastric ulcer Gastroesophageal reflux disease Generalized abdominal pain Generalized anxiety disorder History of dislocation of knee History of kidney stones Hoarseness Hyperextension deformity of knee Hyperthyroidism Hypokalemia Hypovitaminosis D IBS (irritable bowel syndrome) Immunosuppressed status Impingement syndrome of right shoulder Irregular menses 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 syndrome with constipation 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 diarrhea 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
[2022-02-16 02:33] LABS: Troponin I < 0.012 ng/mL (0.000-0.034)
[2022-02-16] MEDS: KETOROLAC 15 MG/ML VIAL (*BKC) IV PUSH (04:23)
== END 2022-02-16 04:49 | disposition home or self-care (01) ==
PROVIDERS: Emergency Provider Emergency Medicine; PCP Internal Medicine
DX: R07.89 Other chest pain (principal); Q79.60 Ehlers-Danlos syndrome, unspecified; E55.9 Vitamin D deficiency, unspecified; E05.90 Thyrotoxicosis, unspecified without thyrotoxic crisis or storm; G89.4 Chronic pain syndrome; K21.9 Gastro-esophageal reflux disease without esophagitis; K58.1 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 syndrome with constipation; M79.7 Fibromyalgia; M17.0 Bilateral primary osteoarthritis of knee; M06.89 Other specified rheumatoid arthritis, multiple sites; F41.1 Generalized anxiety disorder; Z87.442 Personal history of urinary calculi; Z86.2 Personal history of diseases of the blood and blood-forming organs and certain disorders involving the immune mechanism; Z87.01 Personal history of pneumonia (recurrent); Z87.11 Personal history of peptic ulcer disease; Z87.440 Personal history of urinary (tract) infections; Z87.891 Personal history of nicotine dependence; R00.0 Tachycardia, unspecified; R94.31 Abnormal electrocardiogram [ECG] [EKG]
CPT/HCPCS: 36415; 71046; 71275; 80053; 81025; 83690; 84484; 85025; 85610; 85730; 93005; 96374; 96375; 99284; A9270; J1170; J1885; J2270; J7030; Q9967

== ENCOUNTER 2022-02-26 07:36 | Outpatient (RCR) | payer BC, SELFPAY ==
--- NOTE | 2022-02-26 09:12 | PTOPEVAL1 ---
Assessment and note entered by Roseline Cabrera, PT Evaluation Information Assessment Status Evaluation Diagnosis R and L knee instability; s/p L knee scope & R knee scope 12-12-21 Onset 12-12-21 Subjective Information have been doing leg exercises to strengthen knees: TKE, SLR; have fatigue due to Ehler Danlos, have to take a nap every day for few hours; Reported Pain Level Pain Score Self Report Additional Pain Score Comments pain range B knees of 0-3/10, L knee tends to hurt more than R knee; sharp pain sometimes in L knee; dull pain; have issues with chronic pain in knees, hurt all over the knees; most of the time, walking is not limited, but use a cane if pain or fatigue 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 Her medical history includes previous R and L knee scope, Ehler Danlos syndrome, dislocation of patella B and arthritis. She is not working due to medical disability. She is motivated and wants to return to swimming as a fitness exercise. With the evaluation, she has good ROM and hips, knees and ankles, with slight decrease strength of R and L LE; she has good awareness of her body and knows NOT to hyperextend her joints with activity. Skilled PT services are indicated for aquatic and land exercises to increase the strength and stability of B LE's, to improve mobility and decrease risk for future dislocations due to Ehler Danlos; education for home exercises on land and in the water, use of modalities PRN for pain and taping for stability of her knees. Plan of Care Interventions Aquatic Therapy,Electrical Stimulation,Hot Pack/ Cold Pack,Manual Therapy,Neuro Re-education, Patient/Caregiver Education,Therapeutic Activities, Therapeutic Exercise PT Services Indicated Yes Treatment Frequency and 2x/wk for 4 weeks Duration These treatments will address the objective and functional deficits as defined above. The patient will be advanced safely and appropriately in order for the patient to progress towards his/her prior level of function. Additional exercises will be introduced and as well as a comprehensive home exercise program upon
--- NOTE | 2022-05-01 11:22 | PCPTNOTE ---
PHYSICAL THERAPY DISCHARGE 05-01-22 Attending Provider: Jaden Langley MD Patient:Madalyn Smith Date of :1975 Patient has not returned for any further treatments since the PT evaluation on 02/26/2022, for the diagnosis of R and L knee instability. Therefore she will be discharged at this time. The goals were not addressed. Thank you for referring this patient to [facility].
== END 2022-05-01 14:06 | disposition home or self-care (01) ==
LOC: ANHPT 07:36
PROVIDERS: PCP Internal Medicine; Visit Provider Orthopaedic Surgery
DX: M25.361 Other instability, right knee (principal); M25.362 Other instability, left knee; M22.40 Chondromalacia patellae, unspecified knee
CPT/HCPCS: 97110; 97161

== ENCOUNTER 2022-03-07 13:54 | Outpatient (CLI) | payer BC, SELFPAY ==
--- NOTE | ~2022-03-07 | XR_ITS ---
EXAMINATION: XR abdomen/kub 1V INDICATION: Left flank pain TECHNIQUE: Supine views of the abdomen were obtained on 2 radiographs. COMPARISON: 10/19/2021 FINDINGS: Again seen are multiple stones of the right kidney which measure up to 3 mm. Tiny stones of the left kidney measure up to 2 mm. No stones project along the expected courses of the ureters or a t the urinary bladder. The bowel gas pattern is normal. IMPRESSION: 1. Bilateral nephrolithiasis without obvious change. Reviewed, dictated and finalized at location F. KITCHEN MANAGER
== END 2022-03-07 13:55 | disposition home or self-care (01) ==
LOC: ANHIMG 13:58
PROVIDERS: PCP Internal Medicine; Visit Provider Nurse Practitioner Family
DX: R10.9 Unspecified abdominal pain (principal); N20.0 Calculus of kidney
CPT/HCPCS: 74018

== ENCOUNTER 2022-03-08 11:21 | Outpatient (CLI) | payer BC, SELFPAY ==
[2022-03-08 12:00] LABS: Alanine Aminotransferase 43 U/L (6-35); Albumin Level 4.5 g/dL (3.5-5.1); Alkaline Phosphatase 67 U/L (38-126); Amylase 101 U/L (30-110); Anion Gap 12 mmol/L (8-16); Aspartate Amino Transferase 38 U/L (14-36); Bilirubin,Total 0.6 mg/dL (0.2-1.3); Blood Urea Nitrogen 16 mg/dL (7-17); Calcium 8.5 mg/dL (8.4-10.2); Carbon Dioxide 24 mmol/L (22-30); Chloride 101 mmol/L (98-107); Estimated Glomerular Filt Rate > 60; Glucose 93 mg/dL (65-110); Lipase 250 U/L (23-300); Potassium 4.2 mmol/L (3.4-5.0); Sodium 137 mmol/L (137-145)
[2022-03-08 12:05] LABS: Appearance Urine Clear (Clear); Bilirubin Urine 1+ (Negative); Blood Urine Negative (Negative); Color Urine Yellow (Yellow); Glucose Urine UA Negative (Negative); Ketones Urine Trace mg/dL (Negative); Leukocyte Esterase Ur Negative LEU/UL (NEGATIVE); Nitrate Urine Negative (Negative); Protein Urine Trace mg/dL (Negative); Specific Grav Ur 1.025 (1.001-1.035)
[2022-03-08 12:18] LABS: Mucus Urine Rare /lpf; Squamous Epithelial Cell Urine Few /hpf (Few)
[2022-03-08 12:25] LABS: Add Urine Microscopic? YES
== END 2022-03-08 11:22 | disposition home or self-care (01) ==
LOC: ANHLAB 11:22
PROVIDERS: PCP Internal Medicine; Visit Provider Physician Assistant
DX: R10.9 Unspecified abdominal pain (principal)
CPT/HCPCS: 36415; 80053; 81001; 82150; 83690; 87086; 87088

== ENCOUNTER 2022-03-12 18:40 | Emergency (ER) | payer BC, SELFPAY ==
--- NOTE | ~2022-03-12 | CT_ITS ---
EXAMINATION: CT abdomen pelvis wo con DATE: 03/12/2022 20:58 INDICATION: b/l flank pain, RLQ pain, n/v, h/o kidney stones TECHNIQUE: Computed tomography (CT) of the abdomen and pelvis was performed without intravenous contr ast. Automated exposure control and iterative reconstruction technique were employed. The dose-length product was 399.43 mGy-cm. COMPARISON: 10/19/2021. FINDINGS: Lower thorax: Small hiatal hernia Liver: Normal. Biliary/Gallbladder: Gallbladder is normal. No bile duct dilation. Pancreas: No mass or duct dilation. Spleen: Granulomatous calcifications Adrenals:No mass. Kidneys: No suspicious mass or hydronephrosis. Left midpole simple cyst. Multiple bilateral nonobstru cting calculi. GI tract: No small or large bowel dilation. Normal appendix. Diverticulosis without diverticulitis. Mesentery/Peritoneum: No ascites, mass, or free air. Retroperitoneum: No mass. Mild atherosclerotic abdominal aortic and/or arterial calcifications. Pelvis: Pelvic organs are within normal limits. Soft Tissues: Soft tissues and body wall unremarkable. Bones: No acute osseous finding. IMPRESSION: No acute abdominopelvic process detected. Reviewed, dictated and finalized at location K. RETE BUCKET UNLOADER
[2022-03-12 19:06] VITALS: BP 127/87; PULSE 108; RESP 18; TEMP 36.3; O2SAT 100
[2022-03-12 19:27] LABS: Basophils Absolute Auto 0.1 K/mm3 (0.0-0.1); Basophils Percent Auto 1.2 % (0.2-1.2); Eosinophils Absolute Auto 0.1 K/mm3 (0-0.3); Eosinophils Percent Auto 1.2 % (0-4.4); Hematocrit 41.4 % (37.0-47.0); Hemoglobin 13.2 g/dL (12.0-15.0); Immature Granulocyte Absolute 0.05 K/mm3 (0.00-0.031); Immature Granulocyte Percent A 0.6 % (0-0.5); Lymphocytes Absolute Auto 2.01 K/mm3 (0.9-3.2); Mean Corpuscular HGB Conc 31.9 g/dl (32-36); Mean Corpuscular Hemoglobin 28.6 pg (26-34); Mean Corpuscular Volume 89.8 fl (80-100); Mean Platelet Volume 9.1 fl (7.4-10.4); Monocytes Absolute Auto 0.4 K/mm3 (0.1-0.6); Monocytes Percent Auto 5.7 % (2.6-8.5); Neutrophils Absolute Auto 5.1 K/mm3 (1.3-6.7); Neutrophils Percent Auto 65.3 % (45.5-73.1); Platelet Count Result 363 k/mm3 (150-375); Red Blood Count 4.61 M/mm3 (4.2-5.4); Red Cell Distribution Width 13.4 % (11.5-14.5); White Blood Count 7.7 K/mm3 (4.5-10.0)
[2022-03-12 19:34] LABS: Appearance Urine Clear (Clear); Bilirubin Urine Negative (Negative); Blood Urine Trace-lysed (Negative); Color Urine Yellow (Yellow); Glucose Urine UA Negative (Negative); Ketones Urine Negative (Negative); Leukocyte Esterase Ur 1+ LEU/UL (Negative); Nitrate Urine Negative (Negative); Protein Urine Negative (Negative); Urobilinogen Urine 0.2 mg/dL (<2.0); pH Urine 5.5 (5.0-9.0)
[2022-03-12 19:39] LABS: Alanine Aminotransferase 25 U/L (6-35); Albumin Level 4.2 g/dL (3.5-5.1); Alkaline Phosphatase 65 U/L (38-126); Anion Gap 13 mmol/L (8-16); Aspartate Amino Transferase 23 U/L (14-36); Bilirubin,Total 0.4 mg/dL (0.2-1.3); Blood Urea Nitrogen 14 mg/dL (7-17); Calcium 9.2 mg/dL (8.4-10.2); Carbon Dioxide 18 mmol/L (22-30); Chloride 103 mmol/L (98-107); Estimated CRCL calculation 80 ml/min; Estimated Glomerular Filt Rate > 60; Glucose 90 mg/dL (65-110); Lipase 265 U/L (23-300); Potassium 4.2 mmol/L (3.4-5.0); Sodium 134 mmol/L (137-145)
[2022-03-12 19:43] LABS: Bacteria Urine Trace /hpf; Mucus Urine Rare /lpf; Squamous Epithelial Cell Urine Moderate /hpf (Few)
[2022-03-12 19:44] LABS: Add Urine Microscopic? YES
--- NOTE | 2022-03-12 21:34 | ED.ABDPAIN ---
HPI - Abdominal Pain General Chief Complaint: Abdominal Pain Stated Complaint: abd pain for a week Time Seen by Provider: 03/12/22 20:25 History of Present Illness HPI narrative: Patient with history of kidney stones, Meredith-Danlos, chronic pain, IBS presents with 1 week of bilateral flank pain worse on the right abdomen and nausea. No dysuria. Related Data Home Medications Medication Instructions Recorded Confirmed bupropion HCl 300 mg 24 hr tablet, 300 mg PO DAILY 05/02/20 01/26/22 extended release duloxetine 20 mg capsule,delayed 40 mg PO HS 05/02/20 01/26/22 release ondansetron 8 mg disintegrating 8 mg PO Q12H PRN Nausea 05/02/20 01/26/22 tablet potassium citrate 15 mEq (1,620 1,620 mg PO BID 05/02/20 01/26/22 mg) tablet,extended release propranolol 10 mg tablet 10 mg PO QAM 05/02/20 01/26/22 trazodone 100 mg tablet 100 mg PO HS 05/02/20 01/26/22 alprazolam 0.5 mg tablet 1 mg PO BID PRN Anxiety 09/15/20 01/26/22 cholecalciferol (vitamin D3) 125 5,000 unit PO DAILY 09/15/20 01/26/22 mcg (5,000 unit) tablet (Vitamin D3) cyanocobalamin (vitamin B-12) 1,000 mcg PO DAILY 09/15/20 01/26/22 1,000 mcg tablet lactobacillus combo no.13 1 1 cap PO DAILY 09/15/20 01/26/22 billion cell capsule,delayed release (Probiotic Pearls Complete) Allergies Allergy/AdvReac Type Severity Reaction Status Date / Time No Known Allergies Allergy Verified 02/15/22 23:25 Review of Systems Review of Systems: CONST: No fever. HEENT: No sore throat C/V: No chest pain RESP: No cough GI: Reports abdominal pain, nausea : No dysuria. M/S: No joint pain. SKIN: No rash. NEURO: [No headache or focal numbness or weakness] PSYCH: [No depression] [facility] Past Medical History Medical History Abdominal pain in female Abnormal serum lipase level Abnormal weight gain Acute cystitis without hematuria Acute diverticulitis Acute non-recurrent pansinusitis Acute shoulder pain Adult idiopathic generalized osteoporosis Age-related osteoporosis with current pathological fracture, unspecified ankle and foot, initial encounter for fracture Anemia Anxiety Arthralgia Arthritis Arthritis of both knees Atrial tachycardia Bilateral tinnitus Body mass index (bmi) 39.0-39.9, adult (01/12/19) Bone spur of left foot Chills Chronic migraine Chronic narcotic use Chronic pain syndrome Cyst of ovary Diarrhea Dietary counseling and surveillance (08/25/15) Diverticulitis of large intestine without perforation or abscess Diverticulosis of intestine, part unspecified, without perforation or abscess with bleeding Duodenal ulcer Dysphagia Dysuria Meredith-Danlos syndrome Epigastric pain Establishing care with new doctor, encounter for Excessive thirst Fatigue Fear of flying Fibromyalgia Gastric ulcer Gastroesophageal reflux disease Generalized abdominal pain Generalized anxiety disorder History of dislocation of knee History of kidney stones Hoarseness Hyperextension deformity of knee Hyperthyroidism Hypokalemia Hypovitaminosis D IBS (irritable bowel syndrome) Immunosuppressed status Impingement syndrome of right shoulder Irregular menses 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 syndrome with constipation 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 diarrhea 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 Low back pain Low TSH level Luteal cystic ovary disease Microscopic hematuria Migraine, unspecified, not intractable, without status migrainosus Multinodular goiter Muscle weakness of lower extremity Musculoskeletal pain Nausea Nephrolithiasis Nonintractable migraine Osteoarthritis of spine with radiculopathy, lumbar region Osteoporosis Other chronic pain Overweight (11/22/16) Pain in both hands Pain of both hip joints Pain of left heel Pneumonia due to infectious organism Polyuria Prepatellar bursitis of both knees Prepatellar bursitis, left knee Psoriasis PUD (peptic ulcer disease) Rheumatoid arthritis of multiple sites with negat
[2022-03-12] MEDS: ONDANSETRON HCL ODT 4 MG TABLET PO (21:41)
[2022-03-12] MEDS: HYDROcodone/acetaminophen (*CRX) 5-325 MG TABLET 1 TAB PO (21:41)
[2022-03-12] MEDS: SULFAMETHOXAZOLE/TRIMETHOPRIM 800/160 MG DS TABLET 1 TAB PO (21:44)
[2022-03-12 22:07] VITALS: BP 123/83; PULSE 92; RESP 18; O2SAT 98
== END 2022-03-12 22:10 | disposition home or self-care (01) ==
PROVIDERS: Emergency Medicine; Emergency Provider Emergency Medicine; PCP Internal Medicine
DX: R10.9 Unspecified abdominal pain (principal); R11.0 Nausea; Q79.60 Ehlers-Danlos syndrome, unspecified; E55.9 Vitamin D deficiency, unspecified; E05.90 Thyrotoxicosis, unspecified without thyrotoxic crisis or storm; G89.4 Chronic pain syndrome; K21.9 Gastro-esophageal reflux disease without esophagitis; K58.1 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 syndrome with constipation; M79.7 Fibromyalgia; M17.0 Bilateral primary osteoarthritis of knee; M81.8 Other osteoporosis without current pathological fracture; M06.89 Other specified rheumatoid arthritis, multiple sites; E66.3 Overweight; Z68.30 Body mass index [BMI] 30.0-30.9, adult; F41.1 Generalized anxiety disorder; Z87.891 Personal history of nicotine dependence; Z87.442 Personal history of urinary calculi; Z86.2 Personal history of diseases of the blood and blood-forming organs and certain disorders involving the immune mechanism; Z87.01 Personal history of pneumonia (recurrent); Z87.11 Personal history of peptic ulcer disease; Z87.440 Personal history of urinary (tract) infections
CPT/HCPCS: 36415; 74176; 80053; 81001; 81025; 83690; 85025; 99284; A9270

== ENCOUNTER 2022-04-02 13:33 | Outpatient (CLI) | payer BC, SELFPAY ==
--- NOTE | ~2022-04-02 | MR_ITS ---
MRI of the thoracic spine Clinical History: Back pain, flank pain Technique: Axial T2-weighted images, and sagittal T1-weighted, T2-weighted, and STIR images were acqu ired. Findings: There is no fracture or subluxation of the thoracic spine. Vertebral bodies maintain normal height and alignment. No bone marrow signal abnormality identified. At T2-T3, there is a very small central disc protrusion, which minimally indents the ventral spinal c ord at this level. No other disc bulge or herniation seen in the remainder of the thoracic spine. No other areas of spin al canal stenosis, cord compression, or neural foraminal narrowing. Paravertebral soft tissues are unremarkable. Impression: Small central disc protrusion at T2-T3, which minimally indents the ventral spinal cord at this level . Reviewed, dictated and finalized at location [] SHOW ENTERTAINER Impression: Small central disc protrusion at T2-T3, which minimally indents the ventral spi nal cord at this level.
--- NOTE | ~2022-04-02 | MR_ITS ---
MRI of the lumbar spine Clinical History: Back pain, flank pain Technique: Axial T2-weighted images, and sagittal T1-weighted, T2-weighted, and T2 fat sat images wer e acquired. COMPARISON: 01/04/2015 Findings: There is no fracture or subluxation of the lumbar spine. Vertebral bodies maintain normal h eight and alignment. No focal bone marrow signal abnormality identified. At L1-L2, L2-L3, and L3-L4, the intervertebral discs maintain normal signal and position. No disc bul ge or herniation T levels. No spinal canal stenosis or neural foraminal narrowing at these levels. Mi nimal facet joint degenerative changes are present at these levels. At L4-L5, there is mild disc desiccation and narrowing. There is a mild central disc protrusion. Ther e is facet joint arthropathy, left worse than right. There is no significant spinal canal stenosis or neural foraminal narrowing. At L5-S1, there is no disc bulge or herniation. No spinal canal stenosis or neural foraminal narrowin g. Paravertebral soft tissues are unremarkable. Impression: Minimal degenerative spondylosis, as detailed above, stable from prior exam. No spinal canal stenosis or neural foraminal narrowing. No fracture or subluxation. Reviewed, dictated and finalized at location [] ICULUM WRITER Impression: Minimal degenerative spondylosis, as detailed above, stable from prior exam. No spinal canal stenosis or neural foraminal narrowing. No fracture or subluxation.
== END 2022-04-02 13:34 | disposition home or self-care (01) ==
LOC: ANHIMG 13:34
PROVIDERS: PCP Internal Medicine; Visit Provider Physician Assistant
DX: R10.9 Unspecified abdominal pain (principal); M51.24 Other intervertebral disc displacement, thoracic region
CPT/HCPCS: 72146; 72148

== ENCOUNTER 2022-05-20 22:30 | Inpatient (IN) | payer BC, SELFPAY ==
--- NOTE | ~2022-05-20 | CT_ITS ---
EXAMINATION: CT abdomen pelvis w con DATE: 05/21/2022 01:19 INDICATION: Left abdominal pain. Nausea. Diarrhea. Blood in stool. TECHNIQUE: Computed tomography (CT) of the abdomen and pelvis was performed with 100 mL Omnipaque 350 intravenous contrast. Automated exposure control and iterative reconstruction technique were employe d. The dose-length product was 1205.99 mGy-cm. COMPARISON: CT abdomen and pelvis 03/12/2022, 02/26/2021 FINDINGS: The visualized portions of the lung bases are clear without pneumonia or pleural effusion. Calcified left hilar lymph nodes are consistent with old granulomatous disease. The heart size is nor mal. No pericardial effusion. There is a small sliding hiatal hernia. There are 2 chronic hyperenhanc ing masses in right hepatic lobe measuring up to 15 mm, likely hemangiomas or focal nodular hyperplas ia. There is a 5 mm cyst in the liver. The gallbladder is normal. Calcifications in the spleen are co nsistent with old granulomatous disease. The pancreas and adrenal glands are normal. There are cysts in the kidneys measuring up to 2.2 cm on the left. There are stones in both kidneys measuring up to 4 mm on the right. There are scattered diverticula in the colon. There is fat stranding adjacent to th e sigmoid colon, consistent with diverticulitis. There are no dilated loops of bowel. The appendix is normal. There are no pathologically enlarged lymph nodes. There is no free intraperitoneal fluid. Th ere is mild thoracolumbar spondylosis. IMPRESSION: 1. Acute sigmoid diverticulitis. No perforation or abscess. Reviewed, dictated and finalized at location A. OO DESIGNER
--- NOTE | ~2022-05-20 | CT_ITS ---
EXAMINATION: CT abdomen pelvis wo con DATE: 05/22/2022 10:09 INDICATION: Diverticulitis. Abdominal pain. TECHNIQUE: Computed tomography (CT) of the abdomen and pelvis was performed without intravenous contr ast. Automated exposure control and iterative reconstruction technique were employed. The dose-length product was 980.43 mGy-cm. COMPARISON: CT abdomen and pelvis 05/21/2022 FINDINGS: The visualized portions of the lung bases demonstrate mild atelectasis. Calcified left lung nodules and calcified left hilar lymph nodes are consistent with old granulomatous disease. No pleur al effusion. No pleural effusion. The heart size is normal. No pericardial effusion. There is a small sliding hiatal hernia. There is a chronic 15 mm mass in right hepatic lobe that was hyperenhancing o n the prior CT, likely a hemangioma or focal nodular hyperplasia. The gallbladder is normal in size. Calcifications in the spleen are consistent with old granulomatous disease. The pancreas and adrenal glands are normal. There are greater than 10 stones in right kidney measuring up to 4 mm. There are c ysts in left kidney measuring up to 2.3 cm. There are approximately 7 stones in left kidney measuring up to 2 mm. There are no dilated loops of bowel. There are scattered diverticula in the colon. There is wall thickening of the sigmoid colon with fat stranding around a diverticulum, consistent with di verticulitis. The appendix is normal. There are no pathologically enlarged lymph nodes. There is no f ree intraperitoneal fluid. There is mild thoracolumbar spondylosis. IMPRESSION: 1. Stable acute sigmoid diverticulitis. No perforation or abscess. Reviewed, dictated and finalized at location A. ORT OPERATIONS OFFICER
[2022-05-20 22:35] VITALS: BP 139/81; PULSE 114; RESP 20; TEMP 36.4; O2SAT 100
[2022-05-20 23:10] LABS: Appearance Urine Clear (Clear); Bilirubin Urine Negative (Negative); Blood Urine 1+ (Negative); Color Urine Yellow (Yellow); Glucose Urine UA Negative (Negative); Ketones Urine Trace mg/dL (Negative); Leukocyte Esterase Ur Trace LEU/UL (Negative); Nitrate Urine Negative (Negative); Protein Urine Negative (Negative); Specific Grav Ur 1.025 (1.001-1.035)
[2022-05-20 23:13] LABS: Mucus Urine Rare /lpf; Squamous Epithelial Cell Urine Few /hpf (Few); WBC Urine 0-3 /hpf
[2022-05-20 23:16] LABS: Add Urine Microscopic? YES
[2022-05-21 00:08] LABS: Basophils Absolute Auto 0.1 K/mm3 (0.0-0.1); Basophils Percent Auto 0.6 % (0.2-1.2); Eosinophils Absolute Auto 0.1 K/mm3 (0-0.3); Eosinophils Percent Auto 0.9 % (0-4.4); Hematocrit 37.6 % (37.0-47.0); Hemoglobin 12.3 g/dL (12.0-15.0); Immature Granulocyte Absolute 0.13 K/mm3 (0.00-0.031); Immature Granulocyte Percent A 1.1 % (0-0.5); Lymphocytes Absolute Auto 1.81 K/mm3 (0.9-3.2); Lymphocytes Percent Auto 15.6 % (18.3-44.2); Mean Corpuscular HGB Conc 32.7 g/dl (32-36); Mean Corpuscular Hemoglobin 28.5 pg (26-34); Mean Platelet Volume 8.9 fl (7.4-10.4); Monocytes Absolute Auto 0.8 K/mm3 (0.1-0.6); Monocytes Percent Auto 7.1 % (2.6-8.5); Neutrophils Absolute Auto 8.7 K/mm3 (1.3-6.7); Neutrophils Percent Auto 74.7 % (45.5-73.1); Platelet Count Result 317 k/mm3 (150-375); Red Blood Count 4.32 M/mm3 (4.2-5.4); Red Cell Distribution Width 15.7 % (11.5-14.5); White Blood Count 11.6 K/mm3 (4.5-10.0)
[2022-05-21 00:11] LABS: Alanine Aminotransferase 23 U/L (6-35); Albumin Level 3.9 g/dL (3.5-5.1); Alkaline Phosphatase 68 U/L (38-126); Anion Gap 9 mmol/L (8-16); Aspartate Amino Transferase 18 U/L (14-36); Bilirubin,Total 0.3 mg/dL (0.2-1.3); Blood Urea Nitrogen 15 mg/dL (7-17); Calcium 8.4 mg/dL (8.4-10.2); Carbon Dioxide 21 mmol/L (22-30); Chloride 104 mmol/L (98-107); Estimated CRCL calculation 91 ml/min; Estimated Glomerular Filt Rate > 60; Glucose 94 mg/dL (65-110); Lipase 303 U/L (23-300); Potassium 3.6 mmol/L (3.4-5.0); Sodium 134 mmol/L (137-145)
--- NOTE | 2022-05-21 00:11 | ED.ABDPAIN ---
HPI - Abdominal Pain General Chief Complaint: Abdominal Pain <JULIÁN Preston Last Filed: 05/21/22 02:56> Stated Complaint: ABD PAIN <JULIÁN Preston Last Filed: 05/21/22 02:56> Time Seen by Provider: 05/20/22 23:11 <JULIÁN Preston Last Filed: 05/21/22 02:56> Source: patient <JULIÁN Preston Last Filed: 05/21/22 02:56> Mode of arrival: ambulatory <JULIÁN Preston Last Filed: 05/21/22 02:56> Limitations: no limitations <JULIÁN Preston Last Filed: 05/21/22 02:56> History of Present Illness HPI narrative: Patient presents to the emergency department for diarrhea ongoing over the last 5 days. Associated with left-sided abdominal pain, nausea. Does report some difficulty urinating. Reports she had some blood in her stool yesterday. Denies fever, vomiting or hematuria. <JULIÁN Preston Last Filed: 05/21/22 02:56> Related Data Home Medications: Home Medications Medication Instructions Recorded Confirmed bupropion HCl 300 mg 24 hr tablet, 300 mg PO DAILY 05/02/20 03/18/22 extended release duloxetine 20 mg capsule,delayed 40 mg PO HS 05/02/20 03/18/22 release ondansetron 8 mg disintegrating 8 mg PO Q12H PRN Nausea 05/02/20 03/18/22 tablet potassium citrate 15 mEq (1,620 1,620 mg PO BID 05/02/20 03/18/22 mg) tablet,extended release propranolol 10 mg tablet 10 mg PO QAM 05/02/20 03/18/22 trazodone 100 mg tablet 100 mg PO HS 05/02/20 03/18/22 alprazolam 0.5 mg tablet 1 mg PO BID PRN Anxiety 09/15/20 03/18/22 cholecalciferol (vitamin D3) 125 5,000 unit PO DAILY 09/15/20 03/18/22 mcg (5,000 unit) tablet (Vitamin D3) cyanocobalamin (vitamin B-12) 1,000 mcg PO DAILY 09/15/20 03/18/22 1,000 mcg tablet lactobacillus combo no.13 1 1 cap PO DAILY 09/15/20 03/18/22 billion cell capsule,delayed release (Probiotic Pearls Complete) <Jyoti Flaherty PA-C - Last Filed: 05/21/22 02:56> Allergies/Adverse Reactions: Allergies Allergy/AdvReac Type Severity Reaction Status Date / Time No Known Allergies Allergy Verified 05/20/22 22:33 <Jyoti Flaherty PA-C - Last Filed: 05/21/22 02:56> Review of Systems Review of Systems: CONSTITUTIONAL: Denies fever GASTROINTESTINAL: Reports abdominal pain, nausea, and diarrhea. GENITOURINARY: Denies dysuria or hematuria. <Jyoti Flaehrty PA-C - Last Filed: 05/21/22 02:56> All systems reviewed & are unremarkable except as noted in HPI and below <Jyoti Flaherty PA-C - Last Filed: 05/21/22 02:56> [facility] Past Medical History Medical History: Medical History Abdominal pain in female Abnormal serum lipase level Abnormal weight gain Acute cystitis without hematuria Acute diverticulitis Acute non-recurrent pansinusitis Acute shoulder pain Adult idiopathic generalized osteoporosis Age-related osteoporosis with current pathological fracture, unspecified ankle and foot, initial encounter for fracture Anemia Anxiety Arthralgia Arthritis Arthritis of both knees Atrial tachycardia Bilateral tinnitus Body mass index (bmi) 39.0-39.9, adult (01/12/19) Bone spur of left foot Chills Chronic migraine Chronic narcotic use Chronic pain syndrome Cyst of ovary Diarrhea Dietary counseling and surveillance (08/25/15) Diverticulitis of large intestine without perforation or abscess Diverticulosis of intestine, part unspecified, without perforation or abscess with bleeding Duodenal ulcer Dysphagia Dysuria Meredith-Danlos syndrome Epigastric pain Establishing care with new doctor, encounter for Excessive thirst Fatigue Fear of flying Fibromyalgia Gastric ulcer Gastroesophageal reflux disease Generalized abdominal pain Generalized anxiety disorder History of dislocation of knee History of kidney stones Hoarseness Hyperextension deformity of knee Hyperthyroidism Hypokalemia Hypovitaminosis D IBS (irritable
[2022-05-21] MEDS: ONDANSETRON INJ 4 MG/2 ML VIAL IV PUSH (00:21)
[2022-05-21] MEDS: SODIUM CHLORIDE 0.9% IV 1,000 ML 999 ML IV CONT (00:22)
[2022-05-21 00:52] LABS: INR 0.9; Partial Thromboplastin Time 21.4 SECONDS (22.3-36.8); Prothrombin Time 11.7 Seconds (11.1-14.7)
[2022-05-21] MEDS: MORPHINE SULFATE (*CRX) 4 MG/ML INJ IV PUSH ×2 (00:59→02:50)
[2022-05-21 02:00] VITALS: BP 123/73; PULSE 98; RESP 18; O2SAT 100
[2022-05-21] MEDS: diphenhydrAMINE HCl INJ 50 MG/ML VIAL 25 MG IV PUSH (02:23)
[2022-05-21] MEDS: METOCLOPRAMIDE HCL INJ 10 MG/2 ML VIAL IV PUSH (02:23)
--- NOTE | 2022-05-21 03:10 | PM.IMHP ---
H&P: HPI History of Present Illness Date/Time: 05/21/22 03:10 Chief Complaint: Abdominal pain Narrative: This is a 47-year-old female with past medical history significant for chronic migraine, chronic narcotic use, chronic pain syndrome, diverticulitis, duodenal ulcer, dysphagia, Meredith-Danlos syndrome, GERD, fibromyalgia. Patient presents to the emergency room due to abdominal pain which is localized to the left lower quadrant worse with Valsalva maneuver and urination, poor appetite, nausea but no vomiting, has had chills, night sweats, change in color of the stools phlegm blood admixed with it. Preliminary workup was significant for diverticulitis. Patient has been admitted for further evaluation management and treatment. Review of Systems Review of Systems: Abdominal pain of 1 week duration with change in stools no night sweats, chills, nausea poor appetite Constitutional: Constitutional: Reports chills, Reports fatigue, Reports fever(s), Reports malaise, Reports night sweats and Reports poor appetite Eyes: Eyes: Denies change in vision ENT: Denies dysphagia and Denies odynophagia Cardiovascular: Cardiovascular: Denies chest pain, Denies leg edema, Denies radiating jaw, neck or arm pain and Denies palpitations Respiratory: Respiratory: Denies chest congestion, Denies cough, Denies pain on inspiration, Denies dyspnea and Denies dyspnea on exertion Gastrointestinal: Gastrointestinal: Reports abdominal pain, Denies melena, Denies hematochezia, Denies dyspepsia, Denies heartburn, Reports diarrhea, Reports nausea and Denies vomiting Genitourinary: Genitourinary: Denies dysuria Musculoskeletal: Musculoskeletal: Denies joint swelling Integumentary/Breasts: Skin/Breast: Denies rash Neurologic: Denies focal weakness and Denies Sensory deficit (Neuro) Psychiatric: Psychiatric: Reports no additional psychiatric complaints and Reports as per HPI Endocrine: Endocrine: Denies cold intolerance, Denies flushing, Denies heat intolerance, Denies polyphagia, Denies polydipsia and Denies palpitations Hematologic/Lymphatic: Hematologic/Lymphatic: Reports no additional hematologic/lymphatic complaints and Reports as per HPI Allergic/Immunologic: Allergic/Immunologic: Reports no additional allergic/immunologic complaints and Reports as per HPI [facility] Past Medical History Medical History Abdominal pain in female Abnormal serum lipase level Abnormal weight gain Acute cystitis without hematuria Acute diverticulitis Acute non-recurrent pansinusitis Acute shoulder pain Adult idiopathic generalized osteoporosis Age-related osteoporosis with current pathological fracture, unspecified ankle and foot, initial encounter for fracture Anemia Anxiety Arthralgia Arthritis Arthritis of both knees Atrial tachycardia Bilateral tinnitus Body mass index (bmi) 39.0-39.9, adult (01/12/19) Bone spur of left foot Chills Chronic migraine Chronic narcotic use Chronic pain syndrome Cyst of ovary Diarrhea Dietary counseling and surveillance (08/25/15) Diverticulitis of large intestine without perforation or abscess Diverticulosis of intestine, part unspecified, without perforation or abscess with bleeding Duodenal ulcer Dysphagia Dysuria Meredith-Danlos syndrome Epigastric pain Establishing care with new doctor, encounter for Excessive thirst Fatigue Fear of flying Fibromyalgia Gastric ulcer Gastroesophageal reflux disease Generalized abdominal pain Generalized anxiety disorder History of dislocation of knee History of kidney stones Hoarseness Hyperextension deformity of knee Hyperthyroidism Hypokalemia Hypovitaminosis D IBS (irritable bowel syndrome) Immunosuppressed status Impingement syndrome of right shoulder Irregular menses 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 syndrome with constipation 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 diarrhea longterm use of drug Low back pain Low TSH level Luteal cystic ovary disease
[2022-05-21 04:00] VITALS: BP 123/79; PULSE 71; RESP 16; O2SAT 99
[2022-05-21] MEDS: HYDROmorphone HCL INJ (*CRX) 1 MG/ML SYR 0.5 MG IV PUSH ×4 (05:59→18:12)
[2022-05-21 06:00] VITALS: BP 103/75; PULSE 94; RESP 20; TEMP 36.3; O2SAT 99
[2022-05-21] MEDS: SODIUM CHLORIDE 0.9% IV 1,000 ML 125 ML IV CONT ×2 (06:02→16:33)
[2022-05-21] MEDS: CHOLECALCIFEROL 1,000 UNITS TABLET 5000 UNITS PO (09:51)
[2022-05-21] MEDS: ACIDOPHILUS/BULGARICUS CHEWABLE TABLET 2 TABLET BY MOUTH (09:51)
[2022-05-21] MEDS: DICYCLOMINE HCL 10 MG CAPSULE 20 MG PO ×3 (09:52→18:07)
[2022-05-21] MEDS: buPROPion HCL XL (24 HR) 150 MG TABCR 300 MG PO (09:53)
[2022-05-21] MEDS: POTASSIUM CITRATE 5 MEQ TAB CR 15 MEQ PO ×2 (09:53→18:07)
[2022-05-21] MEDS: PROPRANOLOL HCL 10 MG TABLET PO (09:53)
[2022-05-21] MEDS: PANTOPRAZOLE 40 MG TABLET BY MOUTH (09:53)
[2022-05-21] MEDS: CYANOCOBALAMIN 1,000 MCG TABLET 1000 MCG PO (09:53)
--- NOTE | 2022-05-21 13:28 | PM.IMPN ---
Progress Note: A&P Assessment and Plan (1) Diverticulitis: Code(s): K57.92 - Diverticulitis of intestine, part unspecified, without perforation or abscess without bleeding Status: Acute Assessment and Plan: Admit to regular medical floor IV fluids Started on Zosyn Cultures in progress Surgery consult Supportive care NPO except for ice chips 05/21/2022 interval history: patient presented with complaint of abdominal is found to have diverticulitis patient is being treated with Zosyn, states the pain is little better and her bowel movements are improving, denies any nausea or vomiting fever or chills. will continue present management and further recommendation to follow. (2) Chronic pain: Code(s): G89.29 - Other chronic pain Status: Acute Assessment and Plan: Continue home meds Unchanged (3) Fibromyalgia: Code(s): M79.7 - Fibromyalgia Status: Acute Assessment and Plan: Continue home meds A unchanged (4) Chronic migraine: Code(s): G43.709 - Chronic migraine without aura, not intractable, without status migrainosus Status: Acute Assessment and Plan: Continue home meds A unchanged (5) Rheumatoid arthritis of multiple sites with negative rheumatoid factor: Code(s): M06.09 - Rheumatoid arthritis without rheumatoid factor, multiple sites Status: Acute Assessment and Plan: Not on DMARDs (6) Gastroesophageal reflux disease: Qualifiers: Esophagitis presence: esophagitis presence not specified Qualified Code(s): K21.9 - Gastro-esophageal reflux disease without esophagitis Code(s): K21.9 - Gastro-esophageal reflux disease without esophagitis Status: Acute Assessment and Plan: PPI (7) Meredith-Danlos syndrome: Code(s): Q79.60 - Meredith-Danlos syndrome, unspecified Status: Acute Assessment and Plan: Unchanged (8) Obesity (BMI 30-39.9): Code(s): E66.9 - Obesity, unspecified Status: Acute Assessment and Plan: Life is style and diet modifications Subjective Date/time seen: 05/21/22 13:28 Abdominal pain HPI-Narrative: This is a 47-year-old female with past medical history significant for chronic migraine, chronic narcotic use, chronic pain syndrome, diverticulitis, duodenal ulcer, dysphagia, Meredith-Danlos syndrome, GERD, fibromyalgia.? Patient presents to the emergency room due to abdominal pain which is localized to the left lower quadrant worse with Valsalva maneuver and urination, poor appetite, nausea but no vomiting, has had chills, night sweats, change in color of the stools phlegm blood admixed with it.? Preliminary workup was significant for diverticulitis.? Patient has been admitted for further evaluation management and treatment. 05/21/2022 interval history: patient presented with complaint of abdominal is found to have diverticulitis patient is being treated with Zosyn, states the pain is little better and her bowel movements are improving, denies any nausea or vomiting fever or chills. will continue present management and further recommendation to follow. Review of Systems Constitutional: Constitutional: Reports chills, Reports fatigue, Reports fever(s), Reports malaise, Reports night sweats and Reports poor appetite Exam Narrative: moderately obese Patient is comfortable, NAD HEENT: eyes are clear and none icteric LUNGS: normal respiratory effort ABD: distended Lower extremities: no edema SKIN: nonjaundiced Neuro: grossly intact. Objective Data Vital Signs Vital Signs: Vital Signs - 24 hr 05/20/22 22:35 05/21/22 02:00 05/21/22 04:00 Temperature 97.6 F Pulse Rate 114 H 98 71 Respiratory Rate 20 18 16 Blood Pressure 139/81 123/73 123/79 Pulse Oximetry 100 100 99 Oxygen Delivery 05/21/22 06:00 05/21/22 08:00 Temperature 97.4 F L Pulse Rate 94 Respiratory Rate 20 Blood Pressure 103/75 Pulse Oximetry 99 Oxygen Delive
[2022-05-21 14:00] VITALS: BP 103/70; PULSE 86; RESP 12; TEMP 35.8; O2SAT 100
[2022-05-21] MEDS: traZODone HCL 50 MG TABLET 100 MG PO (20:40)
[2022-05-21] MEDS: DULoxetine HCL 20 MG CAPSULE.DR 40 MG PO (20:41)
[2022-05-21 22:00] VITALS: BP 96/62; PULSE 88; RESP 18; TEMP 36.2; O2SAT 99
[2022-05-22] MEDS: HYDROmorphone HCL INJ (*CRX) 1 MG/ML SYR 0.5 MG IV PUSH ×5 (01:10→17:50)
[2022-05-22] MEDS: SODIUM CHLORIDE 0.9% IV 1,000 ML 125 ML IV CONT ×3 (01:11→17:58)
[2022-05-22] MEDS: HYDROcodone/acetaminophen (*CRX) 5-325 MG TABLET 1 TAB PO ×3 (02:47→15:34)
[2022-05-22 06:00] VITALS: BP 114/75; PULSE 92; RESP 18; TEMP 36.1; O2SAT 100
[2022-05-22 06:29] LABS: Hematocrit 35.4 % (37.0-47.0); Hemoglobin 11.2 g/dL (12.0-15.0); Mean Corpuscular HGB Conc 31.6 g/dl (32-36); Mean Corpuscular Hemoglobin 27.9 pg (26-34); Mean Corpuscular Volume 88.1 fl (80-100); Mean Platelet Volume 8.8 fl (7.4-10.4); Platelet Count Result 299 k/mm3 (150-375); Red Blood Count 4.02 M/mm3 (4.2-5.4); Red Cell Distribution Width 15.8 % (11.5-14.5); White Blood Count 8.9 K/mm3 (4.5-10.0)
[2022-05-22 06:49] LABS: Anion Gap 4 mmol/L (8-16); Blood Urea Nitrogen 11 mg/dL (7-17); Calcium 7.7 mg/dL (8.4-10.2); Carbon Dioxide 27 mmol/L (22-30); Chloride 107 mmol/L (98-107); Estimated CRCL calculation 72 ml/min; Estimated Glomerular Filt Rate > 60; Glucose 79 mg/dL (65-110); Potassium 3.7 mmol/L (3.4-5.0); Sodium 138 mmol/L (137-145)
[2022-05-22] MEDS: CHOLECALCIFEROL 1,000 UNITS TABLET 5000 UNITS PO (08:58)
[2022-05-22] MEDS: ACIDOPHILUS/BULGARICUS CHEWABLE TABLET 2 TABLET BY MOUTH (08:58)
[2022-05-22] MEDS: DICYCLOMINE HCL 10 MG CAPSULE 20 MG PO ×3 (08:58→17:58)
[2022-05-22] MEDS: POTASSIUM CITRATE 5 MEQ TAB CR 15 MEQ PO ×2 (08:58→17:57)
[2022-05-22] MEDS: PANTOPRAZOLE 40 MG TABLET BY MOUTH (08:59)
[2022-05-22] MEDS: buPROPion HCL XL (24 HR) 150 MG TABCR 300 MG PO (08:59)
[2022-05-22] MEDS: CYANOCOBALAMIN 1,000 MCG TABLET 1000 MCG PO (08:59)
[2022-05-22] MEDS: PROPRANOLOL HCL 10 MG TABLET PO (08:59)
--- NOTE | 2022-05-22 13:51 | PM.IMPN ---
Progress Note: A&P Assessment and Plan (1) Diverticulitis: Code(s): K57.92 - Diverticulitis of intestine, part unspecified, without perforation or abscess without bleeding Status: Acute Assessment and Plan: Admit to regular medical floor IV fluids Started on Zosyn Cultures in progress Surgery consult Supportive care NPO except for ice chips 05/22/2022 interval history: patient presented with complaint of abdominal pain, she is found to have diverticulitis patient is being treated with Zosyn, states today pain is worsening in LLQ, to further evaluate CT scan of abdomen was done which did not show any significant change pulmonary last CT scan, patient has history of chronic pain and chronic back narcotic use, will start the patient clear liquid and reduced hydromorphone 0.5 mg every 6 hours as needed, denies any nausea or vomiting fever or chills. will continue present management and further recommendation to follow. (2) Chronic pain: Code(s): G89.29 - Other chronic pain Status: Acute Assessment and Plan: Continue home meds Unchanged (3) Fibromyalgia: Code(s): M79.7 - Fibromyalgia Status: Acute Assessment and Plan: Continue home meds A unchanged (4) Chronic migraine: Code(s): G43.709 - Chronic migraine without aura, not intractable, without status migrainosus Status: Acute Assessment and Plan: Continue home meds A unchanged (5) Rheumatoid arthritis of multiple sites with negative rheumatoid factor: Code(s): M06.09 - Rheumatoid arthritis without rheumatoid factor, multiple sites Status: Acute Assessment and Plan: Not on DMARDs (6) Gastroesophageal reflux disease: Qualifiers: Esophagitis presence: esophagitis presence not specified Qualified Code(s): K21.9 - Gastro-esophageal reflux disease without esophagitis Code(s): K21.9 - Gastro-esophageal reflux disease without esophagitis Status: Acute Assessment and Plan: PPI (7) Meredith-Danlos syndrome: Code(s): Q79.60 - Meredith-Danlos syndrome, unspecified Status: Acute Assessment and Plan: Unchanged (8) Obesity (BMI 30-39.9): Code(s): E66.9 - Obesity, unspecified Status: Acute Assessment and Plan: Life is style and diet modifications Subjective Date/time seen: 05/22/22 13:51 05/22/2022 interval history: patient presented with complaint of abdominal pain, she is found to have diverticulitis patient is being treated with Zosyn, states today pain is worsening in LLQ, to further evaluate CT scan of abdomen was done which did not show any significant change pulmonary last CT scan, patient has history of chronic pain and chronic back narcotic use, will start the patient clear liquid and reduced hydromorphone 0.5 mg every 6 hours as needed, denies any nausea or vomiting fever or chills. will continue present management and further recommendation to follow. Review of Systems Constitutional: Constitutional: Reports chills, Reports fatigue, Reports fever(s), Reports malaise, Reports night sweats and Reports poor appetite Exam Narrative: moderately obese Patient is comfortable, NAD HEENT: eyes are clear and none icteric LUNGS: normal respiratory effort ABD: distended Lower extremities: no edema SKIN: nonjaundiced Neuro: grossly intact. Objective Data Vital Signs Vital Signs: Vital Signs - 24 hr 05/21/22 14:00 05/21/22 20:00 05/21/22 22:00 Temperature 96.5 F L 97.2 F L Pulse Rate 86 88 Respiratory Rate 12 18 Blood Pressure 103/70 96/62 L Pulse Oximetry 100 99 Oxygen Delivery Room Air 05/22/22 06:00 05/22/22 08:00 Temperature 96.9 F L Pulse Rate 92 Respiratory Rate 18 Blood Pressure 114/75 Pulse Oximetry 100 Oxygen Delivery Room Air Intake/Output Intake/Output: Intake & Output 05/19/22 05/20/22 05/21/22 05/22/22 23:59 23:59 23:59 23:59 Intake Total 2300 2170 Ou
[2022-05-22 15:15] VITALS: BP 119/66; PULSE 90; RESP 18; TEMP 36; O2SAT 100
[2022-05-22] MEDS: HYDROcodone/acetaminophen (*CRX) 10-325 MG TABLET 1 TAB PO (21:13)
[2022-05-22] MEDS: traZODone HCL 50 MG TABLET 100 MG PO (21:13)
[2022-05-22] MEDS: DULoxetine HCL 20 MG CAPSULE.DR 40 MG PO (21:13)
[2022-05-22 22:00] VITALS: BP 111/68; PULSE 91; RESP 14; TEMP 36.2; O2SAT 100
[2022-05-23] MEDS: HYDROmorphone HCL INJ (*CRX) 1 MG/ML SYR IV PUSH ×4 (02:24→20:22)
[2022-05-23] MEDS: SODIUM CHLORIDE 0.9% IV 1,000 ML 125 ML IV CONT ×2 (05:31→13:41)
[2022-05-23] MEDS: HYDROcodone/acetaminophen (*CRX) 10-325 MG TABLET 1 TAB PO ×4 (05:31→20:23)
[2022-05-23 06:00] VITALS: BP 100/61; PULSE 101; RESP 14; TEMP 36.6; O2SAT 96
[2022-05-23 06:25] LABS: Hematocrit 33.9 % (37.0-47.0); Hemoglobin 10.6 g/dL (12.0-15.0); Mean Corpuscular HGB Conc 31.3 g/dl (32-36); Mean Corpuscular Hemoglobin 28.4 pg (26-34); Mean Corpuscular Volume 90.9 fl (80-100); Mean Platelet Volume 8.7 fl (7.4-10.4); Platelet Count Result 282 k/mm3 (150-375); Red Blood Count 3.73 M/mm3 (4.2-5.4); Red Cell Distribution Width 15.8 % (11.5-14.5); White Blood Count 7.2 K/mm3 (4.5-10.0)
[2022-05-23 06:36] LABS: Anion Gap 7 mmol/L (8-16); Blood Urea Nitrogen 7 mg/dL (7-17); Calcium 7.7 mg/dL (8.4-10.2); Carbon Dioxide 23 mmol/L (22-30); Chloride 107 mmol/L (98-107); Estimated CRCL calculation 72 ml/min; Estimated Glomerular Filt Rate > 60; Glucose 92 mg/dL (65-110); Magnesium 1.9 mg/dL (1.6-2.3); Potassium 3.4 mmol/L (3.4-5.0); Sodium 137 mmol/L (137-145)
[2022-05-23 08:30] VITALS: PULSE 101
[2022-05-23] MEDS: CYANOCOBALAMIN 1,000 MCG TABLET 1000 MCG PO (08:30)
[2022-05-23] MEDS: DICYCLOMINE HCL 10 MG CAPSULE 20 MG PO ×3 (08:30→16:32)
[2022-05-23] MEDS: ACIDOPHILUS/BULGARICUS CHEWABLE TABLET 2 TABLET BY MOUTH (08:30)
[2022-05-23] MEDS: CHOLECALCIFEROL 1,000 UNITS TABLET 5000 UNITS PO (08:30)
[2022-05-23] MEDS: buPROPion HCL XL (24 HR) 150 MG TABCR 300 MG PO (08:30)
[2022-05-23] MEDS: PANTOPRAZOLE 40 MG TABLET BY MOUTH (08:30)
[2022-05-23] MEDS: PROPRANOLOL HCL 10 MG TABLET PO (08:30)
[2022-05-23] MEDS: POTASSIUM CITRATE 5 MEQ TAB CR 15 MEQ PO ×2 (08:30→16:31)
[2022-05-23 13:23] VITALS: BP 117/67; PULSE 83; RESP 18; TEMP 36.1; O2SAT 99
--- NOTE | 2022-05-23 13:34 | PCOTNOTE ---
OT orders received. In speaking with the nurse, she reports the patient is independently moving around the room, taking herself to the bathroom, etc. Called Dr. Mata to inform him that she is independent and requested d/c orders. He is in agreement. Briefly spoke with patient who reports no skilled OT needs at this time.
--- NOTE | 2022-05-23 15:16 | PC.NURSE ---
On 05/23/22, the student, [ Sabina Prince], provided care and completed [facility] documentation on this patient. I have reviewed the student's documentation and agree with the findings.
--- NOTE | 2022-05-23 15:22 | PM.IMPN ---
Progress Note: A&P Assessment and Plan (1) Diverticulitis: Code(s): K57.92 - Diverticulitis of intestine, part unspecified, without perforation or abscess without bleeding Status: Acute Assessment and Plan: Admit to regular medical floor IV fluids Started on Zosyn Cultures in progress Surgery consult Supportive care NPO except for ice chips 05/23/2022 interval history: patient presented with complaint of abdominal pain, she is found to have diverticulitis patient is being treated with Zosyn, stated pain was worsening in LLQ, to further evaluate CT scan of abdomen was done which did not show any significant change compared to last CT scan, patient has history of chronic pain and chronic back pain with narcotic use, on 05/22 started the patient on clear liquid and reduced hydromorphone 0.5 mg every 6 hours as needed, continue oral norco, today will advance her diet to full liquids and monitor, possible advance to low fiber diet tomorow, denies any nausea or vomiting fever or chills. possible advance will continue present management and further recommendation to follow. (2) Chronic pain: Code(s): G89.29 - Other chronic pain Status: Acute Assessment and Plan: Continue home meds Unchanged (3) Fibromyalgia: Code(s): M79.7 - Fibromyalgia Status: Acute Assessment and Plan: Continue home meds A unchanged (4) Chronic migraine: Code(s): G43.709 - Chronic migraine without aura, not intractable, without status migrainosus Status: Acute Assessment and Plan: Continue home meds A unchanged (5) Rheumatoid arthritis of multiple sites with negative rheumatoid factor: Code(s): M06.09 - Rheumatoid arthritis without rheumatoid factor, multiple sites Status: Acute Assessment and Plan: Not on DMARDs (6) Gastroesophageal reflux disease: Qualifiers: Esophagitis presence: esophagitis presence not specified Qualified Code(s): K21.9 - Gastro-esophageal reflux disease without esophagitis Code(s): K21.9 - Gastro-esophageal reflux disease without esophagitis Status: Acute Assessment and Plan: PPI (7) Meredith-Danlos syndrome: Code(s): Q79.60 - Meredith-Danlos syndrome, unspecified Status: Acute Assessment and Plan: Unchanged (8) Obesity (BMI 30-39.9): Code(s): E66.9 - Obesity, unspecified Status: Acute Assessment and Plan: Life is style and diet modifications Subjective Date/time seen: 05/23/22 15:22 05/23/2022 interval history: patient presented with complaint of abdominal pain, she is found to have diverticulitis patient is being treated with Zosyn, stated pain was worsening in LLQ, to further evaluate CT scan of abdomen was done which did not show any significant change compared to last CT scan, patient has history of chronic pain and chronic back pain with narcotic use, on 05/22 started the patient on clear liquid and reduced hydromorphone 0.5 mg every 6 hours as needed, continue oral norco, today will advance her diet to full liquids and monitor, possible advance to low fiber diet tomorow, denies any nausea or vomiting fever or chills. possible advance will continue present management and further recommendation to follow. Review of Systems Constitutional: Constitutional: Reports chills, Reports fatigue, Reports fever(s), Reports malaise, Reports night sweats and Reports poor appetite Exam Narrative: moderately obese Patient is comfortable, NAD HEENT: eyes are clear and none icteric LUNGS: normal respiratory effort ABD: distended Lower extremities: no edema SKIN: nonjaundiced Neuro: grossly intact. Objective Data Vital Signs Vital Signs: Vital Signs - 24 hr 05/22/22 22:00 05/23/22 06:00 05/23/22 08:30 Temperature 97.1 F L 97.8 F Pulse Rate 91 101 H 101 H Respiratory Rate 14 14 Blood Pressure 111/68 100/61 Pulse Oximetry 100 96 05/23/22 13:23
[2022-05-23] MEDS: DULoxetine HCL 20 MG CAPSULE.DR 40 MG PO (20:23)
[2022-05-23] MEDS: traZODone HCL 50 MG TABLET 100 MG PO (20:23)
[2022-05-23 22:00] VITALS: BP 109/58; PULSE 71; RESP 16; TEMP 35.8; O2SAT 99
[2022-05-24] MEDS: SODIUM CHLORIDE 0.9% IV 1,000 ML 125 ML IV CONT ×4 (00:09→19:37)
[2022-05-24] MEDS: HYDROcodone/acetaminophen (*CRX) 10-325 MG TABLET 1 TAB PO ×3 (03:21→19:36)
[2022-05-24] MEDS: HYDROmorphone HCL INJ (*CRX) 1 MG/ML SYR IV PUSH ×4 (03:46→23:13)
[2022-05-24 06:00] VITALS: BP 123/82; PULSE 92; RESP 18; TEMP 35.7; O2SAT 100
[2022-05-24 06:15] LABS: Hematocrit 32.7 % (37.0-47.0); Hemoglobin 10.2 g/dL (12.0-15.0); Mean Corpuscular HGB Conc 31.2 g/dl (32-36); Mean Corpuscular Volume 89.8 fl (80-100); Mean Platelet Volume 8.6 fl (7.4-10.4); Platelet Count Result 295 k/mm3 (150-375); Red Blood Count 3.64 M/mm3 (4.2-5.4); Red Cell Distribution Width 15.4 % (11.5-14.5); White Blood Count 6.9 K/mm3 (4.5-10.0)
[2022-05-24 06:35] LABS: Anion Gap 6 mmol/L (8-16); Blood Urea Nitrogen 4 mg/dL (7-17); Calcium 7.7 mg/dL (8.4-10.2); Carbon Dioxide 26 mmol/L (22-30); Chloride 103 mmol/L (98-107); Estimated CRCL calculation 80 ml/min; Estimated Glomerular Filt Rate > 60; Glucose 89 mg/dL (65-110); Magnesium 1.9 mg/dL (1.6-2.3); Potassium 3.6 mmol/L (3.4-5.0); Sodium 135 mmol/L (137-145)
[2022-05-24] MEDS: DICYCLOMINE HCL 10 MG CAPSULE 20 MG PO ×2 (08:14→16:23)
[2022-05-24] MEDS: CHOLECALCIFEROL 1,000 UNITS TABLET 5000 UNITS PO (08:15)
[2022-05-24 08:16] VITALS: PULSE 67
[2022-05-24] MEDS: buPROPion HCL XL (24 HR) 150 MG TABCR 300 MG PO (08:16)
[2022-05-24] MEDS: PROPRANOLOL HCL 10 MG TABLET PO (08:16)
[2022-05-24] MEDS: CYANOCOBALAMIN 1,000 MCG TABLET 1000 MCG PO (08:16)
[2022-05-24] MEDS: ACIDOPHILUS/BULGARICUS CHEWABLE TABLET 2 TABLET BY MOUTH (08:16)
[2022-05-24] MEDS: PANTOPRAZOLE 40 MG TABLET BY MOUTH (08:16)
[2022-05-24] MEDS: POTASSIUM CITRATE 5 MEQ TAB CR 15 MEQ PO ×2 (08:17→18:39)
--- NOTE | 2022-05-24 13:15 | WPDGICN ---
Assessment and Plan Assessment and plan (1) Diverticulitis: Code(s): K57.92 - Diverticulitis of intestine, part unspecified, without perforation or abscess without bleeding Status: Acute Assessment and Plan: she had at least 4 episodes she is asking about ways to prevent more episodes currently on iv antibiotics repeat CT scan no complications will refer to surgery for possible interval partial colectomy as outpatient last colonoscopy 2021 (2) LLQ pain: Code(s): R10.32 - Left lower quadrant pain Status: Acute Assessment and Plan: medical management (3) Chronic pancreatitis: Code(s): K86.1 - Other chronic pancreatitis Status: Acute Assessment and Plan: she has seen GI at [facility] asymptomatic now GI Consult Note Consult date/time: 05/24/22 13:15 Reason for consult: diverticulitis HPI: Madalyn Smith is a 47 year old female with history of pancreatitis, RA (imuran discontinued because of pancreatitis), IBS and constipation on amitiza prn, Meredith-Danlos syndrome, GERD, fibromyalgia. She had EGD [address] Natan TORRES and gastric retention found, Duodenal bx normal. Colonoscopy chronic diarrhea, mild left sided diverticulosis, random colon bx negative for any pathological abnormalities, no TI bx. Also recurrent diverticulitis at least 4 times for last 6 years. She came to ER with almost 5-6 days of progressive llq that got severe, worse with Valsalva maneuver and urination, poor appetite, nausea but no vomiting, had chills and similar to previous episode of diverticulitis. CT scan again showed sigmoid diverticulitis, hospitalist repeated CT scan with similar finding (no complications). On iv antibiotics, still hurting but better. Also noted coffee ground in stool. Review of Systems Review of Systems: Abdominal pain of 1 week duration with change in stools Constitutional: Constitutional: Reports chills, Reports malaise and Reports poor appetite Eyes: Eyes: Denies change in vision ENT: Denies dysphagia and Denies odynophagia Cardiovascular: Cardiovascular: Denies chest pain, Denies leg edema, Denies radiating jaw, neck or arm pain and Denies palpitations Respiratory: Respiratory: Denies chest congestion and Denies cough Gastrointestinal: Gastrointestinal: Reports abdominal pain, Denies melena, Denies dyspepsia, Denies heartburn, Reports diarrhea and Reports nausea Genitourinary: Genitourinary: Denies dysuria Musculoskeletal: Musculoskeletal: Denies joint swelling Integumentary/Breasts: Skin/Breast: Denies rash Neurologic: Denies focal weakness and Denies Sensory deficit (Neuro) Psychiatric: Psychiatric: Reports no additional psychiatric complaints and Reports as per HPI Endocrine: Endocrine: Denies cold intolerance and Denies flushing Hematologic/Lymphatic: Hematologic/Lymphatic: Reports no additional hematologic/lymphatic complaints and Reports as per HPI Allergic/Immunologic: Allergic/Immunologic: Reports no additional allergic/immunologic complaints and Reports as per HPI PMFSH Past Medical History Medical History (Updated 05/24/22 @ 13:46 by Santy Anderson MD) Abdominal pain in female Abnormal serum lipase level Abnormal weight gain Acute cystitis without hematuria Acute diverticulitis Acute non-recurrent pansinusitis Acute shoulder pain Adult idiopathic generalized osteoporosis Age-related osteoporosis with current pathological fracture, unspecified ankle and foot, initial encounter for fracture Anemia Anxiety Arthralgia Arthritis Arthritis of both knees Atrial tachycardia Bilateral tinnitus Body mass index (bmi) 39.0-39.9, adult (01/12/19) Bone spur of left foot Chills Chronic migraine Chronic narcotic use Chronic pain syndrome Cyst of ovary Diarrhea Dietary counseling and surveillance (08/25/15) Diverticulitis of large intestine without perforation or abscess Diverticulosis of intestine, part unspecified, without perforation or
[2022-05-24 14:00] VITALS: BP 118/70; PULSE 70; RESP 18; TEMP 36.2; O2SAT 100
--- NOTE | 2022-05-24 15:58 | PM.IMPN ---
Progress Note: A&P Assessment and Plan (1) Diverticulitis: Code(s): K57.92 - Diverticulitis of intestine, part unspecified, without perforation or abscess without bleeding Status: Acute Assessment and Plan: Admit to regular medical floor IV fluids Started on Zosyn Cultures in progress Surgery consult Supportive care NPO except for ice chips 05/24/2022 interval history: patient presented with complaint of abdominal pain, she is found to have diverticulitis patient is being treated with Zosyn, 0n 05/22 stated pain was worsening in LLQ, to further evaluate CT scan of abdomen was done which did not show any significant change compared to last CT scan, patient has history of chronic pain and chronic back pain with narcotic use, and drug seeking behavior, on 05/22 started the patient on clear liquid and reduced hydromorphone 0.5 mg every 6 hours as needed, continue oral norco, on 05/23 advanced her diet to full liquids and monitor, possible advance to low fiber diet however patient had dark stool this morning concerning for rectal bleeding, was seen by GI and does not recommend recommend EGD or colonoscopy, may need to consult surgery as outpatient, patient continue to demand increase of hydromorphone, denies any nausea or vomiting fever or chills. possible advance her diet will continue present management and further recommendation to follow. (2) Chronic pain: Code(s): G89.29 - Other chronic pain Status: Acute Assessment and Plan: Continue home meds Unchanged (3) Fibromyalgia: Code(s): M79.7 - Fibromyalgia Status: Acute Assessment and Plan: Continue home meds A unchanged (4) Chronic migraine: Code(s): G43.709 - Chronic migraine without aura, not intractable, without status migrainosus Status: Acute Assessment and Plan: Continue home meds A unchanged (5) Rheumatoid arthritis of multiple sites with negative rheumatoid factor: Code(s): M06.09 - Rheumatoid arthritis without rheumatoid factor, multiple sites Status: Acute Assessment and Plan: Not on DMARDs (6) Gastroesophageal reflux disease: Qualifiers: Esophagitis presence: esophagitis presence not specified Qualified Code(s): K21.9 - Gastro-esophageal reflux disease without esophagitis Code(s): K21.9 - Gastro-esophageal reflux disease without esophagitis Status: Acute Assessment and Plan: PPI (7) Meredith-Danlos syndrome: Code(s): Q79.60 - Meredith-Danlos syndrome, unspecified Status: Acute Assessment and Plan: Unchanged (8) Obesity (BMI 30-39.9): Code(s): E66.9 - Obesity, unspecified Status: Acute Assessment and Plan: Life is style and diet modifications Subjective Date/time seen: 05/24/22 15:58 05/24/2022 interval history: patient presented with complaint of abdominal pain, she is found to have diverticulitis patient is being treated with Zosyn, 0n 05/22 stated pain was worsening in LLQ, to further evaluate CT scan of abdomen was done which did not show any significant change compared to last CT scan, patient has history of chronic pain and chronic back pain with narcotic use, and drug seeking behavior, on 05/22 started the patient on clear liquid and reduced hydromorphone 0.5 mg every 6 hours as needed, continue oral norco, on 05/23 advanced her diet to full liquids and monitor, possible advance to low fiber diet however patient had dark stool this morning concerning for rectal bleeding, was seen by GI and does not recommend recommend EGD or colonoscopy, may need to consult surgery as outpatient, patient continue to demand increase of hydromorphone, denies any nausea or vomiting fever or chills. possible advance her diet will continue present management and further recommendation to follow. Review of Systems Constitutional: Constitutional: Reports chills, Reports fatigue, Reports fever(s), Reports malaise, Repo
--- NOTE | 2022-05-24 17:44 | PM.CNGS ---
Assessment and Plan Assessment and plan (1) Diverticulitis: Code(s): K57.92 - Diverticulitis of intestine, part unspecified, without perforation or abscess without bleeding Status: Acute Assessment and Plan: Persistent left lower quadrant pain. Pain did not worsen with full liquids but she did have some diarrhea. White blood cell count is normal and no evidence of abscess or free intraperitoneal air on CT scan. Recommend going ahead with low-fiber diet and try some Imodium for the diarrhea. I explained the nature of diverticulitis to the patient. Since she has had this before she did have a pretty good idea what was involved. I explained that when there is diverticulitis and we cannot get the pain to resolve with medical treatment, sometimes this does result in surgery. Surgery in this infectious setting typically involves a colostomy or an ileostomy. I explained what that was. Also explained that this is usually temporary but does not require another significant abdominal procedure to restore intestinal continuity. I also discussed the more usual scenario which includes healing from the acute diverticulitis infection followed by elective laparoscopic sigmoid resection with anastomosis. If that can be accomplished, there would be no need for colostomy or ileostomy. She had several questions. I answered them all. Thank you for asking me to see this patient in consultation. I will follow along with you. 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 In the emergency room, she was noted to have acute diverticulitis. There was no free air or evidence of abscess. Her pain has not really improved significantly. She has also had diarrhea. A repeat CT scan on 05/22/2022 again showed diverticulitis without evidence of complication. She did have a colonoscopy in June of [address] Arias. This was basically negative except for diverticulosis. Patient has multiple medical problems including Meredith Danlos syndrome, fibromyalgia, and rheumatoid arthritis. She also has chronic pain syndrome and takes hydrocodone regularly for this. She reports that she has probably had 5 episodes of diverticulitis over the last 7-8 years. She has had a previous Caesarean section but otherwise no abdominal surgery. She has had a number of lithotripsies and continues to have multiple stones in both kidneys. She is seen now in consultation. Review of Systems Review of Systems: All systems reviewed & are unremarkable except as noted in HPI and below (HPI and those items noted below) Constitutional: Constitutional: Denies chills and Denies fever(s) Cardiovascular: Cardiovascular: Denies chest pain, Denies diaphoresis, Denies dyspnea and Denies paroxysmal nocturnal dyspnea Respiratory: Respiratory: Denies chest congestion, Denies cough and Denies dyspnea Integumentary/Breasts: Skin/Breast: Denies lesions and Denies rash PMFSH Past Medical History Medical History Abdominal pain in female Abnormal serum lipase level Abnormal weight gain Acute cystitis without hematuria Acute diverticulitis Acute non-recurrent pansinusitis Acute shoulder pain Adult idiopathic generalized osteoporosis Age-related osteoporosis with current pathological fracture,
[2022-05-24] MEDS: DULoxetine HCL 20 MG CAPSULE.DR 40 MG PO (20:44)
[2022-05-24] MEDS: traZODone HCL 50 MG TABLET 100 MG PO (20:44)
[2022-05-24] MEDS: ALPRAZolam (*CRX) 0.5 MG TABLET 1 MG PO (21:09)
[2022-05-24 22:00] VITALS: BP 101/57; PULSE 73; RESP 18; TEMP 36.2; O2SAT 97
[2022-05-25] MEDS: HYDROcodone/acetaminophen (*CRX) 10-325 MG TABLET 1 TAB PO ×3 (01:20→11:50)
[2022-05-25] MEDS: SODIUM CHLORIDE 0.9% IV 1,000 ML 125 ML IV CONT (05:24)
[2022-05-25 06:00] VITALS: BP 127/77; PULSE 71; RESP 18; TEMP 36.3; O2SAT 100
[2022-05-25 06:23] LABS: Hematocrit 32.9 % (37.0-47.0); Hemoglobin 10.3 g/dL (12.0-15.0); Mean Corpuscular HGB Conc 31.3 g/dl (32-36); Mean Corpuscular Hemoglobin 28.5 pg (26-34); Mean Corpuscular Volume 90.9 fl (80-100); Platelet Count Result 302 k/mm3 (150-375); Red Blood Count 3.62 M/mm3 (4.2-5.4); Red Cell Distribution Width 15.4 % (11.5-14.5); White Blood Count 5.3 K/mm3 (4.5-10.0)
[2022-05-25 08:43] VITALS: PULSE 92
[2022-05-25] MEDS: POTASSIUM CITRATE 5 MEQ TAB CR 15 MEQ PO (08:43)
[2022-05-25] MEDS: PROPRANOLOL HCL 10 MG TABLET PO (08:43)
[2022-05-25] MEDS: buPROPion HCL XL (24 HR) 150 MG TABCR 300 MG PO (08:44)
[2022-05-25] MEDS: DICYCLOMINE HCL 10 MG CAPSULE 20 MG PO ×2 (08:44→11:54)
[2022-05-25] MEDS: CYANOCOBALAMIN 1,000 MCG TABLET 1000 MCG PO (08:44)
[2022-05-25] MEDS: ACIDOPHILUS/BULGARICUS CHEWABLE TABLET 2 TABLET BY MOUTH (08:44)
[2022-05-25 08:45] LABS: Anion Gap 4 mmol/L (8-16); Blood Urea Nitrogen 2 mg/dL (7-17); Calcium 8.2 mg/dL (8.4-10.2); Carbon Dioxide 25 mmol/L (22-30); Chloride 106 mmol/L (98-107); Estimated CRCL calculation 72 ml/min; Estimated Glomerular Filt Rate > 60; Glucose 87 mg/dL (65-110); Magnesium 1.9 mg/dL (1.6-2.3); Potassium 3.8 mmol/L (3.4-5.0); Sodium 135 mmol/L (137-145)
[2022-05-25] MEDS: PANTOPRAZOLE 40 MG TABLET BY MOUTH (08:45)
[2022-05-25] MEDS: HYDROmorphone HCL INJ (*CRX) 1 MG/ML SYR IV PUSH (08:45)
[2022-05-25] MEDS: CHOLECALCIFEROL 1,000 UNITS TABLET 5000 UNITS PO (08:45)
[2022-05-25 14:00] VITALS: BP 101/65; PULSE 72; RESP 20; TEMP 35.6; O2SAT 96
--- NOTE | 2022-05-25 14:00 | PM.DS ---
DS: Admitting Diagnosis Discharge Date 05/25/22 Admitting Diagnosis Abdominal pain DS: Discharge Diagnosis Discharge Diagnosis (1) Diverticulitis: Code(s): K57.92 - Diverticulitis of intestine, part unspecified, without perforation or abscess without bleeding Status: Acute (2) Chronic pain: Code(s): G89.29 - Other chronic pain Status: Acute (3) Fibromyalgia: Code(s): M79.7 - Fibromyalgia Status: Chronic (4) Chronic migraine: Code(s): G43.709 - Chronic migraine without aura, not intractable, without status migrainosus Status: Acute (5) Rheumatoid arthritis of multiple sites with negative rheumatoid factor: Code(s): M06.09 - Rheumatoid arthritis without rheumatoid factor, multiple sites Status: Chronic (6) Gastroesophageal reflux disease: Qualifiers: Esophagitis presence: esophagitis presence not specified Qualified Code(s): K21.9 - Gastro-esophageal reflux disease without esophagitis Code(s): K21.9 - Gastro-esophageal reflux disease without esophagitis Status: Acute (7) 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 Please see H&P for details Hospital Course: Patient presented with complaint of abdominal pain. CT abdomen/pelvis showed acute sigmoid diverticulitis. She was started on Zosyn. 0n 05/22, she was having worsening pain in LLQ. Repeat CT scan of abdomen was done which did not show any significant change compared to admission CT scan. BCx no growth to date. WBC was 11.6K but normalized on repeat. Mild anemia noted. She was started the patient on clear liquid and diet was advanced to low fiber. She tolerated this well. Her IV narcotics were reduced which she was able to tolerate . She was seen by GI and appreciate their input. She was also seen by GenSurg due to the frequency of her episodes of diverticulitis. Options were discussed in detail with the patient. We continued a majority of her home medications. She was advised she stop the Trulance and can resume when okay with her doctor. She feels better today. Abdominal pain is better. Tolerating oral intake. She overall did well and was able to be discharged home on 05/25/22. Status at Discharge Cognitive/behavioral status at discharge: Stable Time Spent with Patient Time attestation: Total time spent providing and/or coordinating discharge services: 32 minutes Time spent: Greater than 30 minutes Exam Narrative: AF 127/77 92 18 100% ra Gen - NARD Chest - CTA bilaterally, nml RR CV - RRR S1/S2 Abd - soft, nondistended, +LLQ pain to palpation without guarding, +BS Ext - No pedal edema Psych - Nml mood and affect Skin - Warm and dry DS: Data Data Completed and Pending Labs on day of discharge: Labs from last 24 hours 05/25/22 05/25/22 08:14 06:03 WBC 5.3 RBC 3.62 L Hgb 10.3 L Hct 32.9 L MCV 90.9 MCH 28.5 MCHC 31.3 L RDW 15.4 H Plt Count 302 MPV 9.0 Sodium 135 L Potassium 3.8 Chloride 106 Carbon Dioxide 25 Anion Gap 4 L BUN 2 L Creatinine 0.90 Estim Creat Clear Calc 72 Estimated GFR > 60 Glucose 87 Calcium 8.2 L Magnesium 1.9 Preliminary micro results at discharge 05/21/22 03:31 Blood Culture - Preliminary Blood 05/21/22 03:31 Blood Culture - Preliminary Blood Discharge Plan Discharge Attending physician on discharge: Juan Diego Desai Consulting providers: Jyoti Flaherty ; Marcello Mata ; Santy Anderson ; Pietro Harris Disch
--- NOTE | 2022-05-25 14:15 | WPDGIPROGNO ---
Progress Note: A&P Assessment and Plan (1) Diverticulitis: Code(s): K57.92 - Diverticulitis of intestine, part unspecified, without perforation or abscess without bleeding Status: Acute Assessment and Plan: medical treatment, doing better recurrent episodes, evaluated by surgery and will follow-up as outpatient (2) LLQ pain: Code(s): R10.32 - Left lower quadrant pain Status: Acute Assessment and Plan: inproving (3) IBS (irritable bowel syndrome): Code(s): K58.9 - 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 diarrhea Status: Acute Subjective Date/time seen: 05/25/22 14:15 Interval history: still pain but better Review of Systems Review of Systems: All systems reviewed & are unremarkable except as noted in HPI and below Exam Const: General: healthy appearing, comfortable, no acute distress, alert and awake Orientation/consciousness: patient oriented x3 and No confusion HENMT: Head: normocephalic and atraumatic Mouth: Yes Normal oral and palatal mucosa present Eyes: Conjunctivae: conjunctivae normal Neck: Neck: normal visual inspection and nontender Resp: Effort & Inspection: normal respiratory effort Auscultation: clear to auscultation bilaterally Cardio: Rate: regular rate Rhythm: regular rhythm GI: Inspection: non-distended and scar (Lower abdominal midline scar) GI Palp: Yes Soft to palpation, Yes Tenderness to palpation present (GI) (Left lower quadrant ), No Hepatomegaly present and No Splenomegaly present Auscultation: normal bowel sounds Skin: Lesions: no lesions Rashes: no rashes Neuro: General: no focal motor deficits and CN's II-XI intact bilaterally Cranial nerves: Yes Equal, round and reactive pupils present, Yes Bilaterally intact EOM present, Yes facial symmetry and Yes Midline tongue present Speech: normal speech Motor exam (neuro): 5/5 motor strength present throughout Extrem: General: no clubbing, cyanosis or edema Psych: Affect: normal affect Thought process: Normal thought process present Insight: Good insight present (Psych) Objective Data Vital Signs Vital Signs: Vital Signs - 24 hr 05/24/22 20:00 05/24/22 22:00 05/25/22 06:00 Temperature 97.1 F L 97.3 F L Pulse Rate 73 71 Respiratory Rate 18 18 Blood Pressure 101/57 L 127/77 Pulse Oximetry 97 100 Oxygen Delivery Room Air 05/25/22 08:43 05/25/22 08:00 Temperature Pulse Rate 92 Respiratory Rate Blood Pressure Pulse Oximetry Oxygen Delivery Room Air Intake/Output Intake/Output: Intake & Output 05/22/22 05/23/22 05/24/22 05/25/22 23:59 23:59 23:59 23:59 Intake Total 4370 6110 4690 1640 Output Total 4300 3900 450 Balance 70 2210 4240 1640 Meds/Results Medications: Active Medications Generic Name Dose Route Start Last Admin Trade Name Freq PRN Reason Stop Dose Admin Hydrocodone Bitart/Acetaminophen 1 tab 05/22/22 20:20 05/25/22 11:50 Hydrocodone/Acetaminophen (*Crx) 10-325 Mg Tablet PO 1 tab Q4H PRN Administration Pain Rated 7-10 Alprazolam 1 mg 05/21/22 06:16 05/24/22 21:09 Alprazolam (*Crx) 0.5 Mg Tablet PO 1 mg BID PRN Administration Anxiety Bupropion HCl 300 mg 05/21/22 09:00 05/25/22 08:44 Bupropion Hcl Xl (24 Hr) 150 Mg Tabcr PO 300 mg DAILY ANNE Administration Cyanocobalamin 1,000 mcg 05/21/22 09:00 05/25/22 08:44 Cyanocobalamin 1,000 Mcg Tablet PO 1,000 mcg DAILY ANNE Administration Dicyclomine HCl 20 mg 05/21/22 09:00 05/25/22 11:54 Dicyclomine Hcl 10 Mg Capsule PO 20 mg TID ANNE Administration Duloxetine HCl 40 mg 05/21/22 21:00 05/24/22 20:44 Duloxetine Hcl 20 Mg Capsule.Dr PO 40 mg HS ANNE Administration Hydromorphone HCl 1 mg 05/22/22 20:22 05/25/22 08:45 Hydromorphone Hcl Inj (*Crx) 1 Mg/Ml Syr IV PUSH 1 mg Q6H PRN Administration Pain Rated 7-10 Piperacillin/Tazobactam/Dextrose 3.375 gm in 50 mls @ 100 mls/hr 05/21/22 09:00
--- NOTE | 2022-05-25 15:30 | PC.NURSE ---
Pt has been resting in bed with bouts of diarrhea. Pt continues to exhibit pain in left lower quadrant. Pt treated with antibiotics and pain medication. Pt has participated and contributed in her plan of care. Pt expresses no other needs at this time. Pt discharged home with . Pt wheeled down to car. Pt's took belongings down to car. Pt monitored for changes in symptoms.
--- NOTE | 2022-05-25 16:41 | WPDPN ---
Progress Note: A&P Assessment and Plan (1) Diverticulitis: Code(s): K57.92 - Diverticulitis of intestine, part unspecified, without perforation or abscess without bleeding Status: Acute Assessment and Plan: She appears to have responded well to bowel rest at IV antibiotics. Does not appears that she will need a emergent sigmoid colon resection and colostomy. Since she continues to have bowel movements and white blood cell count has normalized and her pain is improved so I feel she can go home on oral antibiotics and stay on a low-fiber diet. He will follow up see doctor Harris in the office in about 2 weeks. At that time she can have a more in-depth and informed discussion about whether she should have an elective sigmoid colon resection for her recurrent episodes of sigmoid diverticulitis. Subjective Date/time seen: 05/25/22 16:41 Interval history: The patient is remain stable without acute changes. She continues to have loose nonbloody stools. She has been tolerating a low-fiber diet without difficulty. she has been afebrile and white blood cell count is normal. She required some Dilaudid last evening but throughout today she has been only taking oral narcotics for her pain. She has even ambulate without difficulty. Review of Systems Review of Systems: The remainder of the review of systems to include constitutional, HEENT, cardiovascular, respiratory, GI, , integumentary, musculoskeletal, endocrine, immunologic, hematologic, psychiatric, and neurologic are all negative except for which is mentioned above in the HPI. Exam Const: General: comfortable and no acute distress GI: Other: Abdomen is soft and nondistended. She does have some baseline mild tenderness to palpation on left lower quadrant. There is no guarding or rebound. Neuro: Speech: normal speech Sensory Exam: normal sensation Psych: Mental Status: mental status grossly normal Affect: normal affect Objective Data Vital Signs Vital Signs: Vital Signs - 24 hr 05/24/22 20:00 05/24/22 22:00 05/25/22 06:00 Temperature 36.2 C L 36.3 C L Pulse Rate 73 71 Respiratory Rate 18 18 Blood Pressure 101/57 L 127/77 Pulse Oximetry 97 100 Oxygen Delivery Room Air 05/25/22 08:43 05/25/22 08:00 05/25/22 14:00 Temperature 35.6 C L Pulse Rate 92 72 Respiratory Rate 20 Blood Pressure 101/65 Pulse Oximetry 96 Oxygen Delivery Room Air Intake/Output Intake/Output: Intake & Output 05/22/22 05/23/22 05/24/22 05/25/22 23:59 23:59 23:59 23:59 Intake Total 4370 6110 4690 1640 Output Total 4300 3900 450 Balance 70 2210 4240 1640 Meds/Results Radiology Results: ITS Impressions Abdomen/Pelvis CT 05/22/22 10:10 IMPRESSION: 1. Stable acute sigmoid diverticulitis. No perforation or abscess. Labs Labs: Laboratory Results - last 24 hr 05/25/22 05/25/22 06:03 08:14 WBC 5.3 RBC 3.62 L Hgb 10.3 L Hct 32.9 L MCV 90.9 MCH 28.5 MCHC 31.3 L RDW 15.4 H Plt Count 302 MPV 9.0 Sodium 135 L Potassium 3.8 Chloride 106 Carbon Dioxide 25 Anion Gap 4 L BUN 2 L Creatinine 0.90 Estim Creat Clear Calc 72 Estimated GFR > 60 Glucose 87 Calcium 8.2 L Magnesium 1.9
== END 2022-05-25 15:25 | disposition home or self-care (01) | DRG 392 ==
LOC: ANHED 05-21 02:14 → ANH3MEDSUR 05-21 02:51
PROVIDERS: Family Medicine; Physician Assistant; Admitting Provider Internal Medicine; Emergency Provider Emergency Medicine; PCP Internal Medicine; Visit Provider Internal Medicine
DX: K57.32 Diverticulitis of large intestine without perforation or abscess without bleeding (principal); Q79.60 Ehlers-Danlos syndrome, unspecified; K86.1 Other chronic pancreatitis; E05.90 Thyrotoxicosis, unspecified without thyrotoxic crisis or storm; E55.9 Vitamin D deficiency, unspecified; E04.2 Nontoxic multinodular goiter; K21.9 Gastro-esophageal reflux disease without esophagitis; K58.1 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 syndrome with constipation; M06.09 Rheumatoid arthritis without rheumatoid factor, multiple sites; M81.8 Other osteoporosis without current pathological fracture; M75.41 Impingement syndrome of right shoulder; M17.0 Bilateral primary osteoarthritis of knee; M47.816 Spondylosis without myelopathy or radiculopathy, lumbar region; M79.7 Fibromyalgia; E66.9 Obesity, unspecified; G43.709 Chronic migraine without aura, not intractable, without status migrainosus; G89.4 Chronic pain syndrome; F41.9 Anxiety disorder, unspecified; Z87.891 Personal history of nicotine dependence; Z79.899 Other long term (current) drug therapy; Z87.442 Personal history of urinary calculi; Z87.11 Personal history of peptic ulcer disease
CPT/HCPCS: 36415; 74176; 74177; 80048; 80053; 81001; 81025; 83690; 83735; 85025; 85027; 85610; 85730; 87040; 96361; 96365; 96366; 96367; 96375; 96376; 99285; A9270; G0378; J0131; J1170; J1200; J2270; J2405; J2543; J2765; J3030; J7030; Q9967

== ENCOUNTER 2022-06-12 07:20 | Outpatient (CLI) | payer BC, SELFPAY ==
--- NOTE | ~2022-06-12 | CT_ITS ---
EXAMINATION: CT abdomen pelvis w con DATE: 06/12/2022 07:56 INDICATION: Diverticulitis TECHNIQUE: Computed tomography (CT) of the abdomen and pelvis was performed with 100 cc Omnipaque 350 intravenous contrast. The dose-length product was 853.54 mGy-cm. COMPARISON: CT dated 05/22/2022. FINDINGS: Heart size normal. Lung bases are unremarkable. No significant pleural or pericardial effus ion. Heart size normal. No significant vascular abnormality. No lymphadenopathy. Fatty infiltration of the liver. There are calcified granulomas of the spleen. The pancreas, adrenal glands are normal. There are nonobstructing bilateral renal stones. There are bilateral renal cysts. Gallbladder is present. No lymphadenopathy. Interval resolution of sigmoid diverticulitis. No evidenc e for obstruction. No free air or free fluid. There is mild thoracolumbar spondylosis. IMPRESSION: 1. Interval resolution of sigmoid diverticulitis. Reviewed, dictated and finalized at location L. [employer]
[2022-06-12 08:46] LABS: Appearance Urine Clear (Clear); Bilirubin Urine Negative (Negative); Blood Urine Trace-intact (Negative); Color Urine Yellow (Yellow); Glucose Urine UA Negative (Negative); Ketones Urine Negative (Negative); Leukocyte Esterase Ur Negative LEU/UL (Negative); Nitrate Urine Negative (Negative); Protein Urine 1+ mg/dL (Negative); Urobilinogen Urine 0.2 mg/dL (<2.0); pH Urine 6.5 (5.0-9.0)
[2022-06-12 08:47] LABS: Basophils Absolute Auto 0.1 K/mm3 (0.0-0.1); Eosinophils Absolute Auto 0.1 K/mm3 (0-0.3); Eosinophils Percent Auto 0.7 % (0-4.4); Hematocrit 42.6 % (37.0-47.0); Hemoglobin 13.2 g/dL (12.0-15.0); Immature Granulocyte Absolute 0.08 K/mm3 (0.00-0.031); Immature Granulocyte Percent A 0.8 % (0-0.5); Lymphocytes Absolute Auto 1.49 K/mm3 (0.9-3.2); Lymphocytes Percent Auto 15.4 % (18.3-44.2); Mean Corpuscular Volume 90.3 fl (80-100); Mean Platelet Volume 10.3 fl (7.4-10.4); Monocytes Absolute Auto 0.5 K/mm3 (0.1-0.6); Monocytes Percent Auto 5.1 % (2.6-8.5); Neutrophils Absolute Auto 7.5 K/mm3 (1.3-6.7); Platelet Count Result 176 k/mm3 (150-375); Red Blood Count 4.72 M/mm3 (4.2-5.4); Red Cell Distribution Width 15.4 % (11.5-14.5); White Blood Count 9.7 K/mm3 (4.5-10.0)
[2022-06-12 08:54] LABS: Add Urine Microscopic? YES; Mucus Urine Rare /lpf; Squamous Epithelial Cell Urine Occasional /hpf (Few); WBC Urine 0-3 /hpf
[2022-06-12 08:59] LABS: Alanine Aminotransferase 23 U/L (6-35); Albumin Level 3.9 g/dL (3.5-5.1); Alkaline Phosphatase 73 U/L (38-126); Anion Gap 8 mmol/L (8-16); Aspartate Amino Transferase 20 U/L (14-36); Bilirubin,Total 0.5 mg/dL (0.2-1.3); Blood Urea Nitrogen 10 mg/dL (7-17); Calcium 8.3 mg/dL (8.4-10.2); Carbon Dioxide 21 mmol/L (22-30); Chloride 105 mmol/L (98-107); Estimated Glomerular Filt Rate > 60; Glucose 92 mg/dL (65-110); Potassium 4.3 mmol/L (3.4-5.0); Sodium 134 mmol/L (137-145)
[2022-06-12 09:01] LABS: Iron 55 ug/dL (37-170)
[2022-06-12 09:11] LABS: Percent Iron Saturation 15 % (20-50)
[2022-06-12 09:28] LABS: Vitamin D 25 Hydroxy 48.2 ng/mL
[2022-06-12 09:29] LABS: Thyroid Stimulating Hormone 0.689 uIU/mL (0.465-4.680)
== END 2022-06-12 07:21 | disposition home or self-care (01) ==
PROVIDERS: PCP Internal Medicine; Visit Provider Internal Medicine
DX: K57.92 Diverticulitis of intestine, part unspecified, without perforation or abscess without bleeding (principal); D64.9 Anemia, unspecified; E55.9 Vitamin D deficiency, unspecified; R10.9 Unspecified abdominal pain; R30.0 Dysuria
CPT/HCPCS: 36415; 74177; 80053; 81001; 82306; 82607; 82746; 83540; 83550; 84443; 85025; Q9967

== ENCOUNTER → 2022-07-06 12:46 | Outpatient (CLI) | payer BC, SELFPAY ==
--- NOTE | ~2022-07-06 | CT_ITS ---
CT of the Abdomen and Pelvis: Indication: Diverticulitis Technique: 2.5 mm axial scans were obtained through the abdomen and pelvis following intravenous adm inistration of 100 cc of Omnipaque 350. Dose reduction technique was used on this scan by utilizing a utomated exposure control and iterative reconstruction technique. The dose-length product (DLP) was 1 032.46 mGy-cm. COMPARISON: 06/12/2022 Findings: Scans through the lung bases are unremarkable. There is stable subtle enhancing lesions at the inferior right hepatic lobe, possibly flash filling o r atypical hemangiomas. Calcified splenic granulomas noted. The pancreas, gallbladder, and adrenal gl and are within normal limits. Small nonobstructing bilateral renal stones noted. No evidence of aorti c aneurysm. No lymphadenopathy. No bowel obstruction or bowel wall thickening. There is no evidence to suggest acute appendicitis. Images through the pelvis were performed. Urinary bladder unremarkable. 2.6 cm right ovarian cyst pre sent. Impression: No acute abnormality. 2.6 cm right ovarian cyst. Stable probable hemangiomas in the liver, as noted above. Stable bilateral nonobstructing nephrolithiasis. Reviewed, dictated and finalized at [facility]. Impression: No acute abnormality. 2.6 cm right ovarian cyst. Stable probable hemangiomas in the liver, as noted above. Stable bilateral nonobstructing nephrolithiasis.
== END ==
PROVIDERS: PCP Internal Medicine; Visit Provider Surgery
DX: K57.92 Diverticulitis of intestine, part unspecified, without perforation or abscess without bleeding (principal); N83.201 Unspecified ovarian cyst, right side; N20.0 Calculus of kidney
CPT/HCPCS: 74177; Q9967

== ENCOUNTER 2022-08-01 11:02 | Outpatient (CLI) | payer BC, SELFPAY ==
--- NOTE | ~2022-08-01 | MR_ITS ---
EXAMINATION: MR abdomen wo/w con DATE: 08/01/2022 12:30 INDICATION: Hemangioma of liver. TECHNIQUE: Magnetic resonance imaging (MRI) of the abdomen was performed without and with 17 mL Multi Luciano intravenous contrast. COMPARISON: Abdomen MRI 03/07/2021 FINDINGS: There is 6 hyperenhancing masses in the liver measuring up to 1.7 cm. No washout. The gallbladder, sp konstantin, pancreas, and adrenal glands are normal. There are cysts in the kidneys measuring up to 2.1 cm on the left. There are no dilated loops of bowel. There are no pathologically enlarged lymph nodes. T here is no free intraperitoneal fluid. IMPRESSION: 1. Stable hypervascular liver masses measuring up to 1.7 cm, likely hemangiomas and/or focal nodular hyperplasia. Reviewed, dictated and finalized at location A.
== END 2022-08-01 11:03 | disposition home or self-care (01) ==
PROVIDERS: PCP Internal Medicine; Visit Provider Internal Medicine
DX: D18.03 Hemangioma of intra-abdominal structures (principal); R16.0 Hepatomegaly, not elsewhere classified
CPT/HCPCS: 74183; A9577

== ENCOUNTER 2022-08-08 14:19 | Outpatient (CLI) | payer BC, SELFPAY ==
--- NOTE | ~2022-08-08 | DEXA_ITS ---
Bone Density Report Name: JULIAN SAUER Age: 47 Sex: Female Ethnicity: White Date of : 1975 Indication: osteopenia; height loss; inflammatory bowel disease; prior fracture; rheumatoid arthritis; postmenopausal Referring Provider: BANDAR MELENDEZ Study: Bone densitometry was performed. Exam Date: August 08, 2022 Accession number: [id number] Bone Density: Region BMD T-score Z-score Classification AP Spine(L1-L4) 0.825 -2.0 -1.4 Osteopenia Femoral Neck (Left) 0.596 -2.3 -1.7 Osteopenia Total Hip (Left) 0.746 -1.6 -1.2 Osteopenia Femoral Neck (Right) 0.588 -2.3 -1.7 Osteopenia Total Hip (Right) 0.709 -1.9 -1.5 Osteopenia Total Hip Mean 0.728 -1.8 -1.4 Osteopenia World Health Organization criteria for BMD impression classify patients as: Normal (T-score at or above -1.0), Osteopenia (T-score between -1.0 and -2.5), or Osteoporosis (T-score at or below -2.5). 10-year Fracture Risk: FRAX not reported because: Premenopausal woman Previous Exams: Region Exam Age BMD T-score BMD Change BMD Change Date g/cm2 vs Baseline vs Previous AP Spine (L1-L4) 08/08/2022 47 0.825 -2.0 0.007 (0.8%) 0.007 (0.8%) 08/12/2018 43 0.818 -2.1 Total Hip(Left) 08/08/2022 47 0.746 -1.6 0.011 (1.5%) 0.011 (1.5%) 08/12/2018 43 0.735 -1.7 Total Hip(Right) 08/08/2022 47 0.709 -1.9 -0.073 (-9.4%) -0.073 (-9.4%) 08/12/2018 43 0.783 -1.3 *Denotes significance at 95% confidence level, LSC for AP Spine = 0.022 g/cm2, LSC for Total Hip = 0.027 g/cm2 Clinical Information Provided by Patient: Has had a low trauma fracture Has rheumatoid arthritis Has the following medical conditions: Inflammatory bowel diseases Patient maximum height was 66 No regular weight bearing exercise Drinks caffeinated beverages Onset of menses at age 11 Premenopausal Number of children 2 Impression: The patient's bone mass is within expected range for age, gender and ethnicity. The patient has risk factors, including: previous fracture. The BMD for the Total Hip(Right) decreased, changing by -9.4% since the last DXA exam. Discussion: BONE DENSITY IS WITHIN EXPECTED LIMITS FOR AGE, SEX AND RACE. Bone density is within expected limits for age, sex and race at all sites measured. The patient should follow a healthful lifestyle (good nutrition with adequate calcium and vitamin D, and appropriate weight-bearing exercise). Follow-Up: Consider repeating this study in 2
== END 2022-08-08 14:20 | disposition home or self-care (01) ==
PROVIDERS: PCP Internal Medicine; Visit Provider Internal Medicine
DX: M81.0 Age-related osteoporosis without current pathological fracture (principal); M85.88 Other specified disorders of bone density and structure, other site; M85.852 Other specified disorders of bone density and structure, left thigh; M85.851 Other specified disorders of bone density and structure, right thigh
CPT/HCPCS: 77080

== ENCOUNTER 2022-10-03 16:57 | Outpatient (CLI) | payer BC, SELFPAY ==
--- NOTE | ~2022-10-03 | XR_ITS ---
EXAMINATION: XR barium swallow DATE: 10/03/2022 20:20 INDICATION: Esophageal reflux. TECHNIQUE: The patient drank thick barium, gas-producing crystals, and thin barium. Fluoroscopy of th e hypopharynx and esophagus was performed. Fluoroscopy exposure time was 0.5 minutes. The total numbe r of images was 522. COMPARISON: CT abdomen and pelvis 07/06/2022 FINDINGS: There is no mass or stricture of the esophagus. Esophageal motility is normal. There is a s mall sliding hiatal hernia. IMPRESSION: 1. Small sliding hiatal hernia. Reviewed, dictated and finalized at location A.
== END 2022-10-03 16:58 | disposition home or self-care (01) ==
LOC: ANHIMG 16:58
PROVIDERS: PCP Internal Medicine; Visit Provider Internal Medicine Gastroenterology
DX: R13.10 Dysphagia, unspecified (principal); K44.9 Diaphragmatic hernia without obstruction or gangrene
CPT/HCPCS: 74220

== ENCOUNTER 2022-10-11 07:59 | Outpatient (CLI) | payer BC, SELFPAY ==
--- NOTE | ~2022-10-11 | NM_ITS ---
EXAM: NM gastric emptying study DATE: 10/11/2022 12:47 INDICATION: Early satiety. Decreased appetite and abdominal pain. TECHNIQUE: A gastric emptying study was performed using the methodology of Raphael MERCADO, et al. J Nucl Med 2007; 48:568-572. The patient was given a meal consisting of 2 scrambled eggs labeled with 0.977 mCi Tc-99m sulfur colloid, 2 slices of toast, two packages of jam, and approximately 120 mL of water . Simultaneous anterior and posterior 1-min images of the abdomen were obtained with the patient supi ne at multiple time points over a total period of 4 hours. The geometric mean of anterior and posteri or views was determined, and the percentage retention was calculated for each time point. COMPARISON: None. FINDINGS: Gastric retention of the radiotracer-labeled meal was 71%, 48%, and 16% at the 1-hour, 2-hour, and 4- hour time points, respectively. With this technique, apparent rapid gastric emptying is suggested by <30% gastric retention at 1 hour. Delayed gastric emptying is defined by gastric retention of >90% at 1 hour, >60% retention at 2 hours, or >10% retention at 4 hours. IMPRESSION: 1. Mildly delayed gastric emptying. Reviewed, dictated and finalized at location A.
== END 2022-10-11 08:00 | disposition home or self-care (01) ==
PROVIDERS: PCP Internal Medicine; Visit Provider Nurse Practitioner
DX: R63.0 Anorexia (principal); K21.9 Gastro-esophageal reflux disease without esophagitis; Q79.60 Ehlers-Danlos syndrome, unspecified; K30 Functional dyspepsia
CPT/HCPCS: 78264; A9541

== ENCOUNTER 2022-11-05 13:43 | Outpatient (CLI) | payer BC, SELFPAY ==
[2022-11-05 14:12] LABS: Basophils Absolute Auto 0.1 K/mm3 (0.0-0.1); Basophils Percent Auto 0.9 % (0.2-1.2); Eosinophils Absolute Auto 0.1 K/mm3 (0-0.3); Eosinophils Percent Auto 1.1 % (0-4.4); Hematocrit 39.8 % (37.0-47.0); Hemoglobin 12.6 g/dL (12.0-15.0); Immature Granulocyte Absolute 0.07 K/mm3 (0.00-0.031); Immature Granulocyte Percent A 0.9 % (0-0.5); Lymphocytes Absolute Auto 1.49 K/mm3 (0.9-3.2); Mean Corpuscular HGB Conc 31.7 g/dl (32-36); Mean Corpuscular Hemoglobin 27.2 pg (26-34); Mean Corpuscular Volume 85.8 fl (80-100); Mean Platelet Volume 8.6 fl (7.4-10.4); Monocytes Absolute Auto 0.5 K/mm3 (0.1-0.6); Monocytes Percent Auto 6.2 % (2.6-8.5); Neutrophils Absolute Auto 5.3 K/mm3 (1.3-6.7); Neutrophils Percent Auto 70.9 % (45.5-73.1); Platelet Count Result 328 k/mm3 (150-375); Red Blood Count 4.64 M/mm3 (4.2-5.4); Red Cell Distribution Width 15.4 % (11.5-14.5); White Blood Count 7.4 K/mm3 (4.5-10.0)
[2022-11-05 18:14] LABS: Iron 58 ug/dL (37-170)
[2022-11-05 18:22] LABS: LDL Cholesterol Direct 126 mg/dL
[2022-11-05 18:26] LABS: Percent Iron Saturation 13 % (20-50)
[2022-11-05 18:39] LABS: Alanine Aminotransferase 78 U/L (6-35); Albumin Level 4.3 g/dL (3.5-5.1); Alkaline Phosphatase 101 U/L (38-126); Anion Gap 6 mmol/L (8-16); Aspartate Amino Transferase 45 U/L (14-36); Bilirubin,Total 0.3 mg/dL (0.2-1.3); Blood Urea Nitrogen 14 mg/dL (7-17); Carbon Dioxide 27 mmol/L (22-30); Chloride 104 mmol/L (98-107); Estimated Glomerular Filt Rate > 60; Glucose 105 mg/dL (65-110); HDL Direct 46 mg/dL; Potassium 3.7 mmol/L (3.4-5.0); Sodium 137 mmol/L (137-145); Triglycerides 276 mg/dL (<150)
[2022-11-05 18:44] LABS: Thyroid Stimulating Hormone 0.362 uIU/mL (0.465-4.680)
[2022-11-05 19:45] LABS: Cholesterol 229 mg/dL (0-200)
== END 2022-11-05 13:44 | disposition home or self-care (01) ==
PROVIDERS: PCP Internal Medicine; Visit Provider Internal Medicine
DX: D64.9 Anemia, unspecified (principal); E55.9 Vitamin D deficiency, unspecified; K86.1 Other chronic pancreatitis; R53.83 Other fatigue
CPT/HCPCS: 36415; 80053; 80061; 82607; 83540; 83550; 84443; 85025

== ENCOUNTER 2022-11-21 02:06 | Day surgery (SDC) | payer BC, SELFPAY ==
[2022-11-13 09:58] VITALS: BMI 31.6
--- NOTE | 2022-11-20 16:42 | PM.HPGS ---
History of Present Illness History of Present Illness Consent: Risks, benefits, and alternatives have been discussed and questions answered. Patient agrees to proceed with procedure. Chief complaint: dysphagia Narrative: Madalyn Smith is a 47 year old female who because she has had frequent episodes of nocturnal regurgitation resulting in coughing and burning her throat we had performed a barium swallow thinking she may need anti-reflux surgery.? That study showed only a small hiatal hernia and reflux was not demonstrated on that.? She is however now having not only occasional episodes of nocturnal regurgitation but has been having dysphagia for solid food at least once a month.? This usually happens with meat. she also has had for few months discomfort in the left upper quadrant comes on about 10 minutes after eating and will last for hours. She says she thinks pantoprazole helps that but then added that since doubling up on pantoprazole it has not gotten any better. Her weight is stable. She has also had watery diarrhea for the past week. Review of Systems Review of Systems: All systems reviewed & are unremarkable except as noted in HPI and below PMFSH Past Medical History Medical History Abdominal pain in female Abnormal serum lipase level Abnormal weight gain Acute cystitis without hematuria Acute diverticulitis Acute non-recurrent pansinusitis Acute shoulder pain Adult idiopathic generalized osteoporosis Age-related osteoporosis with current pathological fracture, unspecified ankle and foot, initial encounter for fracture Anemia Anxiety Arthralgia Arthritis Arthritis of both knees Aspiration into airway Atrial tachycardia Bilateral tinnitus Body mass index (bmi) 39.0-39.9, adult (01/12/19) Bone spur of left foot Chills Chronic migraine Chronic narcotic use Chronic pain syndrome Colon cancer screening Cyst of ovary Decreased appetite Diarrhea Dietary counseling and surveillance (08/25/15) Diverticulitis of large intestine without perforation or abscess Diverticulosis of intestine, part unspecified, without perforation or abscess with bleeding Duodenal ulcer Dysphagia Dysuria Meredith-Danlos syndrome Elevated lipase Epigastric pain Establishing care with new doctor, encounter for Excessive thirst Fatigue Fear of flying Fibromyalgia Gastric ulcer Gastroesophageal reflux disease Generalized abdominal pain Generalized anxiety disorder History of dislocation of knee History of kidney stones Hoarseness Hyperextension deformity of knee Hyperthyroidism Hypokalemia Hypovitaminosis D IBS (irritable bowel syndrome) Immunosuppressed status Impingement syndrome of right shoulder Irregular menses 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 syndrome with constipation 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 diarrhea 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 Low back pain Low TSH level Luteal cystic ovary disease Microscopic hematuria Migraine, unspecified, not intractable, without status migrainosus Multinodular goiter Muscle weakness of lower extremity Musculoskeletal pain Nausea Nephrolithiasis Nonintractable migraine Osteoarthritis of spine with radiculopathy, lumbar region Osteoporosis Other chronic pain Overweight (11/22/16) Pain in both hands Pain of both hip joints Pain of left heel Pneumonia due to infectious organism Polyuria Prepatellar bursitis of both knees Prepatellar bursitis, left knee Psoriasis PUD (peptic ulcer disease) Rheumatoid arthritis of multiple sites with negative rheumatoid factor Rheumatoid arthritis of unspecified site with involvement of other organs and systems Right lower quadrant abdominal pain Short-term memory loss Swelling Swelling of finger joint of left hand Thyroid nodule Urinary symptom or sign Urinary tract infection without hematuria UTI (urinary tract infection) Weight loss Yeast vaginitis Surgical History Surgical History (Reviewed 11/21/22 @ 09:24 by Jaylen
[2022-11-21 08:50] VITALS: BP 125/90; PULSE 102; RESP 19; TEMP 36.2; O2SAT 99
[2022-11-21] MEDS: LACTATED RINGERS 1,000 ML 150 ML IV CONT (09:45)
--- NOTE | 2022-11-21 09:51 | WPDANESEPPF ---
Anes - Initial Pre Proc Eval Procedure: Operation Date: 11/21/22 10:00 Proposed Procedures p Esophagogastroduodenoscopy - Khoa Arias MD Date/Time: 11/21/22 09:51 Surgeon: Khoa Arias MD Pre Op Diagnosis: dysphagia Patient Data Age: 47 Gender: F Height: 1.68 m Weight: 91.3 kg Last Vital Signs Temp 97.2 F L 11/21/22 08:50 Pulse 102 H 11/21/22 08:50 Resp 19 11/21/22 08:50 BP 125/90 11/21/22 08:50 Pulse Ox 99 11/21/22 08:50 O2 Del Method Room Air 11/21/22 08:50 Allergies Allergy/AdvReac Type Severity Reaction Status Date / Time No Known Allergies Allergy Verified 11/21/22 08:46 Home Medications Medication Instructions Recorded Confirmed Type bupropion HCl 300 mg 24 hr tablet, 300 mg PO DAILY 05/02/20 11/13/22 History extended release (Wellbutrin XL) duloxetine 20 mg capsule,delayed 40 mg PO HS 05/02/20 11/13/22 History release potassium citrate 15 mEq (1,620 1,620 mg PO BID 05/02/20 11/13/22 History mg) tablet,extended release propranolol 10 mg tablet 10 mg PO QAM 05/02/20 11/21/22 History trazodone 100 mg tablet 100 mg PO HS 05/02/20 11/13/22 History alprazolam 0.5 mg tablet 1 mg PO BID PRN Anxiety 09/15/20 11/21/22 History cholecalciferol (vitamin D3) 125 5,000 unit PO DAILY 09/15/20 11/13/22 History mcg (5,000 unit) tablet (Vitamin D3) cyanocobalamin (vitamin B-12) 1,000 mcg PO DAILY 09/15/20 11/13/22 History 1,000 mcg tablet sumatriptan succinate 6 mg/0.5 mL See Rx Instructions .Route 09/11/22 11/13/22 Rx subcutaneous pen injector .COMPLEX #2 mL pantoprazole 40 mg tablet,delayed 40 mg PO BID #60 tabs 09/28/22 11/13/22 Rx release sucralfate 100 mg/mL oral 1 g (10 mL) PO ACHS #414 mL 09/28/22 11/13/22 Rx suspension (Carafate) dicyclomine 20 mg tablet 20 mg PO TID #120 tabs 10/28/22 11/13/22 Rx ondansetron 8 mg disintegrating 8 mg PO Q8H PRN nausea and 11/06/22 11/13/22 Rx tablet vomiting #10 tabs lubiprostone 24 mcg capsule 24 mcg PO DAILY 11/13/22 11/13/22 History (Amitiza) Patient hx anesthesia problems: none Family hx anesthesia problems: none Results Review: All pre-operative results and documents have been reviewed as part of the pre-operative evaluation. [facility] Past Medical History Medical History Abdominal pain in female Abnormal serum lipase level Abnormal weight gain Acute cystitis without hematuria Acute diverticulitis Acute non-recurrent pansinusitis Acute shoulder pain Adult idiopathic generalized osteoporosis Age-related osteoporosis with current pathological fracture, unspecified ankle and foot, initial encounter for fracture Anemia Anxiety Arthralgia Arthritis Arthritis of both knees Aspiration into airway Atrial tachycardia Bilateral tinnitus Body mass index (bmi) 39.0-39.9, adult (01/12/19) Bone spur of left foot Chills Chronic migraine Chronic narcotic use Chronic pain syndrome Colon cancer screening Cyst of ovary Decreased appetite Diarrhea Dietary counseling and surveillance (08/25/15) Diverticulitis of large intestine without perforation or abscess Diverticulosis of intestine, part unspecified, without perforation or abscess with bleeding Duodenal ulcer Dysphagia Dysuria Meredith-Danlos syndrome Elevated lipase Epigastric pain Establishing care with new doctor, encounter for Excessive thirst Fatigue Fear of flying Fibromyalgia Gastric ulcer Gastroesophageal reflux disease Generalized abdominal pain Generalized anxiety disorder History of dislocation of knee History of kidney stones Hoarseness Hyperextension deformity of knee Hyperthyroidism Hypokalemia Hypovitaminosis D IBS (irritable bowel syndrome) Immunosuppressed status Impingement syndrome of right shoulder Irregular menses 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 syndrome with constipation 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 diarrhea 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
[2022-11-21 10:18] VITALS: BP 96/65; PULSE 81; RESP 19; O2SAT 93
[2022-11-21 10:28] VITALS: BP 104/71; PULSE 83; RESP 23; O2SAT 95
[2022-11-21 10:38] VITALS: BP 105/70; PULSE 78; RESP 17; O2SAT 96
== END 2022-11-21 10:45 | disposition home or self-care (01) ==
PROVIDERS: PCP Internal Medicine; Visit Provider Internal Medicine Gastroenterology
PROC: 0DJ08ZZ Inspection of Upper Intestinal Tract, Via Natural or Artificial Opening Endoscopic (ICD-10-PCS; CPT 43235; principal; 2022-11-21 10:00)
DX: R13.10 Dysphagia, unspecified (principal); K21.9 Gastro-esophageal reflux disease without esophagitis; Q79.60 Ehlers-Danlos syndrome, unspecified; M06.09 Rheumatoid arthritis without rheumatoid factor, multiple sites; M81.0 Age-related osteoporosis without current pathological fracture; F41.9 Anxiety disorder, unspecified; M79.7 Fibromyalgia; E55.9 Vitamin D deficiency, unspecified; K58.1 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 syndrome with constipation; Z87.891 Personal history of nicotine dependence; E66.9 Obesity, unspecified; Z68.32 Body mass index [BMI] 32.0-32.9, adult; F12.90 Cannabis use, unspecified, uncomplicated
CPT/HCPCS: 43239; 88305; J2704; J7120

== ENCOUNTER 2023-01-08 16:08 | Emergency (ER) | payer BC, SELFPAY | END 2023-01-08 16:10 | disposition left against medical advice (07) | PROVIDERS: PCP Internal Medicine | DX: Z53.21 Procedure and treatment not carried out due to patient leaving prior to being seen by health care provider (principal) | CPT/HCPCS: 99199 ==

== ENCOUNTER 2023-01-08 22:52 | Emergency (ER) | payer BC, SELFPAY ==
--- NOTE | ~2023-01-08 | CT_ITS ---
CT of the Abdomen and Pelvis: Indication: Abdominal pain Technique: 2.5 mm axial scans were obtained through the abdomen and pelvis following intravenous adm inistration of 100 cc of Omnipaque 350. Dose reduction technique was used on this scan by utilizing a utomated exposure control and iterative reconstruction technique. The dose-length product (DLP) was 1 086.02 mGy-cm. COMPARISON: 07/06/2022 Findings: Scans through the lung bases are unremarkable. The liver, pancreas, gallbladder, and adrenal glands are within normal limits. Calcified splenic gran ulomas are present. There are small bilateral nonobstructing renal stones, measuring up to 4 mm in ma ximum diameter. No ureteral stone or hydronephrosis on either side. No evidence of aortic aneurysm. No lymphadenopathy. No bowel obstruction or bowel wall thickening. There is no evidence to suggest acute appendicitis. Images through the pelvis were performed. Urinary bladder unremarkable. 2.6 cm right ovarian cyst pre sent. No other adnexal mass seen. No ascites. Impression: Small bilateral nonobstructing renal stones, as detailed above. 2.6 cm right ovarian cyst. Reviewed, dictated and finalized at [facility]. Impression: Small bilateral nonobstructing renal stones, as detailed above. 2.6 cm right ovarian cyst.
[2023-01-08 22:54] VITALS: BP 132/80; PULSE 103; RESP 20; TEMP 37; O2SAT 100
[2023-01-09] MEDS: ONDANSETRON INJ 4 MG/2 ML VIAL IV PUSH (00:07)
[2023-01-09] MEDS: SODIUM CHLORIDE 0.9% IV 1,000 ML 999 ML IV CONT (00:07)
[2023-01-09] MEDS: MORPHINE SULFATE (*CRX) 4 MG/ML INJ IV PUSH ×2 (00:08→02:02)
--- NOTE | 2023-01-09 00:10 | ED.ABDPAIN ---
HPI - Abdominal Pain General Chief Complaint: Abdominal Pain Stated Complaint: LOWER LEFT ABD PAIN, NAUSEA Time Seen by Provider: 01/08/23 23:25 History of Present Illness HPI narrative: Patient presents the emergency department with persistent left-sided abdominal pain pain has been ongoing for 3 weeks. She is a history of diverticulitis. also has a history of Erler's Danlos. And states that the general surgeon will not operate on her because of vascular complications . She has seen a GI doctor at [facility] was a specialist and pancreatitis and was told to go back to her general surgeon. Patient is accompanied by her significant other. Related Data Home Medications Medication Instructions Recorded Confirmed bupropion HCl 300 mg 24 hr tablet, 300 mg PO DAILY 05/02/20 12/10/22 extended release (Wellbutrin XL) duloxetine 20 mg capsule,delayed 40 mg PO HS 05/02/20 12/10/22 release potassium citrate 15 mEq (1,620 1,620 mg PO BID 05/02/20 12/10/22 mg) tablet,extended release propranolol 10 mg tablet 10 mg PO QAM 05/02/20 12/10/22 trazodone 100 mg tablet 100 mg PO HS 05/02/20 12/10/22 alprazolam 0.5 mg tablet 1 mg PO BID PRN Anxiety 09/15/20 12/10/22 cholecalciferol (vitamin D3) 125 5,000 unit PO DAILY 09/15/20 12/10/22 mcg (5,000 unit) tablet (Vitamin D3) cyanocobalamin (vitamin B-12) 1,000 mcg PO DAILY 09/15/20 12/10/22 1,000 mcg tablet lubiprostone 24 mcg capsule 24 mcg PO DAILY 11/13/22 12/10/22 (Amitiza) Allergies Allergy/AdvReac Type Severity Reaction Status Date / Time No Known Allergies Allergy Verified 01/08/23 23:01 Review of Systems Review of Systems: Review of systems negative except what is documented in the [facility] Past Medical History Medical History Abdominal pain in female Abnormal serum lipase level Abnormal weight gain Acute cystitis without hematuria Acute diverticulitis Acute non-recurrent pansinusitis Acute shoulder pain Adult idiopathic generalized osteoporosis Age-related osteoporosis with current pathological fracture, unspecified ankle and foot, initial encounter for fracture Anemia Anxiety Arthralgia Arthritis Arthritis of both knees Aspiration into airway Atrial tachycardia Bilateral tinnitus Body mass index (bmi) 39.0-39.9, adult (01/12/19) Bone spur of left foot Chills Chronic migraine Chronic narcotic use Chronic pain syndrome Colon cancer screening Cyst of ovary Decreased appetite Diarrhea Dietary counseling and surveillance (08/25/15) Diverticulitis of large intestine without perforation or abscess Diverticulosis of intestine, part unspecified, without perforation or abscess with bleeding Duodenal ulcer Dysphagia Dysuria Meredith-Danlos syndrome Elevated lipase Epigastric pain Establishing care with new doctor, encounter for Excessive thirst Fatigue Fear of flying Fibromyalgia Gastric ulcer Gastroesophageal reflux disease Generalized abdominal pain Generalized anxiety disorder History of dislocation of knee History of kidney stones Hoarseness Hyperextension deformity of knee Hyperthyroidism Hypokalemia Hypovitaminosis D IBS (irritable bowel syndrome) Immunosuppressed status Impingement syndrome of right shoulder Irregular menses 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 syndrome with constipation 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 diarrhea LLQ pain half-way use of drug Low back pain Low TSH level Luteal cystic ovary disease Microscopic hematuria Migraine, unspecified, not intractable, without status migrainosus Multinodular goiter Muscle weakness of lower extremity Musculoskeletal pain Nausea Nephrolithiasis Nonintractable migraine Osteoarthritis of spine with radiculopathy, lumbar region Osteoporosis Other chronic pain Overweight (11/22/16) Pain in both hands Pain of both hip joints Pain of left heel Pneumonia due to infectious organism Polyuria Prepatellar bursitis of both knees Prepatellar bursiti
[2023-01-09 00:24] LABS: Basophils Absolute Auto 0.1 K/mm3 (0.0-0.1); Basophils Percent Auto 0.9 % (0.2-1.2); Eosinophils Absolute Auto 0.2 K/mm3 (0-0.3); Eosinophils Percent Auto 2.2 % (0-4.4); Hematocrit 38.4 % (37.0-47.0); Immature Granulocyte Absolute 0.07 K/mm3 (0.00-0.031); Lymphocytes Absolute Auto 2.01 K/mm3 (0.9-3.2); Lymphocytes Percent Auto 28.9 % (18.3-44.2); Mean Corpuscular HGB Conc 31.3 g/dl (32-36); Mean Corpuscular Hemoglobin 27.7 pg (26-34); Mean Corpuscular Volume 88.7 fl (80-100); Mean Platelet Volume 8.7 fl (7.4-10.4); Monocytes Absolute Auto 0.6 K/mm3 (0.1-0.6); Neutrophils Absolute Auto 4.1 K/mm3 (1.3-6.7); Platelet Count Result 270 k/mm3 (150-375); Red Blood Count 4.33 M/mm3 (4.2-5.4); Red Cell Distribution Width 15.1 % (11.5-14.5)
[2023-01-09 00:30] LABS: Appearance Urine Clear (Clear); Bacteria Urine None Seen /hpf; Bilirubin Urine Negative (Negative); Blood Urine Trace (Negative); Color Urine Yellow (Yellow); Glucose Urine UA Negative (Negative); Ketones Urine Negative (Negative); Leukocyte Esterase Ur Negative LEU/UL (Negative); Nitrate Urine Negative (Negative); Non Pathogenic Casts 0-2; Protein Urine Negative (Negative); Specific Grav Ur 1.021 (1.001-1.035); Squamous Epithelial Cell Urine None seen /hpf (Few); WBC Urine 0-5 /hpf; pH Urine 5.5 (5.0-9.0)
[2023-01-09 00:33] LABS: Add Urine Microscopic? YES; Lactic Acid Reflex 1.1 mmol/L (0.7-2.0)
[2023-01-09 00:34] LABS: Alanine Aminotransferase 28 U/L (6-35); Albumin Level 4.1 g/dL (3.5-5.1); Alkaline Phosphatase 75 U/L (38-126); Anion Gap 8 mmol/L (8-16); Aspartate Amino Transferase 26 U/L (14-36); Bilirubin,Total 0.4 mg/dL (0.2-1.3); Blood Urea Nitrogen 16 mg/dL (7-17); Calcium 8.7 mg/dL (8.4-10.2); Carbon Dioxide 23 mmol/L (22-30); Chloride 103 mmol/L (98-107); Estimated CRCL calculation 73 ml/min; Estimated Glomerular Filt Rate > 60; Glucose 85 mg/dL (65-110); Lipase 452 U/L (23-300); Potassium 3.8 mmol/L (3.4-5.0); Sodium 134 mmol/L (137-145)
--- NOTE | 2023-01-09 00:35 | PC.NURSE ---
Pt's bedside test was negative. CT was notified.
[2023-01-09 01:10] VITALS: BP 133/83; PULSE 91; RESP 16; O2SAT 100
[2023-01-09 03:11] VITALS: BP 130/78; PULSE 87; RESP 16; O2SAT 100
== END 2023-01-09 03:14 | disposition home or self-care (01) ==
PROVIDERS: Emergency Provider Emergency Medicine; PCP Internal Medicine
DX: K57.90 Diverticulosis of intestine, part unspecified, without perforation or abscess without bleeding (principal); R10.9 Unspecified abdominal pain; Q79.60 Ehlers-Danlos syndrome, unspecified; E55.9 Vitamin D deficiency, unspecified; E05.90 Thyrotoxicosis, unspecified without thyrotoxic crisis or storm; G89.4 Chronic pain syndrome; M81.8 Other osteoporosis without current pathological fracture; M79.7 Fibromyalgia; M17.0 Bilateral primary osteoarthritis of knee; M06.9 Rheumatoid arthritis, unspecified; K58.1 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 syndrome with constipation; F41.1 Generalized anxiety disorder; Z87.442 Personal history of urinary calculi; Z87.01 Personal history of pneumonia (recurrent); Z87.11 Personal history of peptic ulcer disease; Z87.440 Personal history of urinary (tract) infections; Z86.2 Personal history of diseases of the blood and blood-forming organs and certain disorders involving the immune mechanism; Z87.891 Personal history of nicotine dependence; N83.201 Unspecified ovarian cyst, right side; N20.0 Calculus of kidney
CPT/HCPCS: 36415; 74177; 80053; 81001; 83605; 83690; 85025; 96361; 96374; 96375; 96376; 99284; J2270; J2405; J7030; Q9967

== ENCOUNTER 2023-02-19 07:56 | Outpatient (CLI) | payer BC, SELFPAY ==
--- NOTE | 2023-02-19 08:00 | ECG_ITS ---
Measurements Intervals [place] Rate: 79 P: 28 PA: 139 QRS: 17 QRSD: 102 T: 25 QT: 358 QTc: 411 Interpretive Statements SINUS RHYTHM COMPARED TO ECG 02/15/2022 23:07:30 SINUS RHYTHM NOW PRESENT Electronically Signed On 02-19-2023 11:42:02 CDT by Mauricio Russell M.D.
== END 2023-02-19 07:57 | disposition home or self-care (01) ==
LOC: ANHSURGERY 07:59
PROVIDERS: PCP Internal Medicine; Visit Provider Obstetrics & Gynecology
DX: N85.2 Hypertrophy of uterus (principal); R00.0 Tachycardia, unspecified; Z01.818 Encounter for other preprocedural examination
CPT/HCPCS: 36415; 86850; 86900; 86901; 93005

== ENCOUNTER 2023-02-22 05:26 | Day surgery (SDC) | payer BC, SELFPAY ==
[2023-02-15 09:20] VITALS: BMI 33.3
--- NOTE | 2023-02-15 09:31 | PC.NURSE ---
Report to the Outpatient Waiting Room, entrance under the green pavilion located off [facility], at time 11:30 on date 02/22/23. Planned Procedure Time: 1:30. Time changes happen often and if your time is changed the preop area will call you the afternoon before. - You and your visitor will be asked to self-screen and do not enter if you have any COVID symptoms. - A mask is optional within the hospital at this time. Patients may have clear liquids (water, carbonated beverages, clear teas, apple juice) until 3 hours prior to surgery (10:30) with a maximum of 20 ounces. - No food from midnight until time of surgery Take the following medications with a SIP of water the morning of surgery: ALPRAZOLAM, BUPROPION, METOCLOPRAMIDE, PROPRANOLOL DO NOT STOP ANY OF YOUR OTHER PRESCRIPTION MEDICATIONS PRIOR TO SURGERY ?EXCEPT THE FOLLOWING Medications to discontinue per physician: VITAMINS/SUPPLEMENTS Date to take last dose: 02/18/23 Please no make-up, nail new zealander, hairspray, perfume, deodorant, or body powder the day of surgery. No jewelry (including any body piercings) or valuables the day of surgery, leave them at home. Please take a shower or bath the night before, or the morning of, surgery with an antibacterial soap. Wear comfortable, loose fitting clothing. - Jewelry must be removed prior to entering the operating room. Rings and piercings that are not removed may be cut off. - The hospital will not accept responsibility for valuables. - Please leave all valuables, including medications, at home the day of surgery. If you are going home after surgery, a licensed sales driver must drive you home. - NO public transportation without another adult if you receive anesthesia. - We recommend that an adult stay with you for 24 hours following discharge. - We also recommend that you do not drive, make important decision, drink alcoholic beverages, or take any drugs that were not prescribed by your health care provider for at least 24 hours after your discharge time. Follow any additional instructions given to you from your surgeon. If you or anyone in your household have experienced Covid symptoms in the past week, please notify your surgeon or the nurse liaison at the phone number below for possible testing. Telephone instructions given to PT - JULIAN SAUER and asked if any additional questions and then verbalized understanding. Patient advised to call surgeon office or pre surgery nurse liaison [phone] if any additional questions.
--- NOTE | 2023-02-19 07:55 | PM.IMHP ---
H&P: HPI History of Present Illness Date/Time: 02/19/23 07:55 Chief Complaint: Pelvic pain/uterine prolapse/dyspareunia/irregular bleeding Narrative: 47-year-old multiparous patient admitted for hysterectomy bilateral salpingectomy secondary to uterine prolapse pelvic pain dyspareunia and irregular bleeding. Hormonal therapy has been on helpful. Risks and benefits of this procedure reviewed including but not exclusive of , aspiration pneumonia, bleeding, transfusion, perforation injury to bowel, bladder, ureters, or other internal organs with need for open laparotomy. She received the [employer] handout entitled hysterectomy as well as the [facility] handout. She had all questions answered. She asked to proceed PMFSH Past Medical History Medical History Abdominal pain in female Abnormal serum lipase level Abnormal weight gain Acute cystitis without hematuria Acute diverticulitis Acute non-recurrent pansinusitis Acute shoulder pain Adult idiopathic generalized osteoporosis Age-related osteoporosis with current pathological fracture, unspecified ankle and foot, initial encounter for fracture Anemia Anxiety Arthralgia Arthritis Arthritis of both knees Aspiration into airway Atrial tachycardia Bilateral tinnitus Body mass index (bmi) 39.0-39.9, adult (01/12/19) Bone spur of left foot Chills Chronic migraine Chronic narcotic use Chronic pain syndrome Colon cancer screening Cyst of ovary Decreased appetite Diarrhea Dietary counseling and surveillance (08/25/15) Diverticulitis of large intestine without perforation or abscess Diverticulosis of intestine, part unspecified, without perforation or abscess with bleeding Duodenal ulcer Dysphagia Dysuria Meredith-Danlos syndrome Elevated lipase Epigastric pain Establishing care with new doctor, encounter for Excessive thirst Fatigue Fear of flying Fibromyalgia Gastric ulcer Gastroesophageal reflux disease Generalized abdominal pain Generalized anxiety disorder History of dislocation of knee History of kidney stones Hoarseness Hyperextension deformity of knee Hyperthyroidism Hypokalemia Hypovitaminosis D IBS (irritable bowel syndrome) Immunosuppressed status Impingement syndrome of right shoulder Irregular menses 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 syndrome with constipation 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 diarrhea LLQ pain skilled nursing use of drug Low back pain Low TSH level Luteal cystic ovary disease Microscopic hematuria Migraine, unspecified, not intractable, without status migrainosus Multinodular goiter Muscle weakness of lower extremity Musculoskeletal pain Nausea Nephrolithiasis Nonintractable migraine Osteoarthritis of spine with radiculopathy, lumbar region Osteoporosis Other chronic pain Overweight (11/22/16) Pain in both hands Pain of both hip joints Pain of left heel Pneumonia due to infectious organism Polyuria Prepatellar bursitis of both knees Prepatellar bursitis, left knee Psoriasis PUD (peptic ulcer disease) Rheumatoid arthritis of multiple sites with negative rheumatoid factor Rheumatoid arthritis of unspecified site with involvement of other organs and systems Right lower quadrant abdominal pain Short-term memory loss Swelling Swelling of finger joint of left hand Thyroid nodule Urinary symptom or sign Urinary tract infection without hematuria UTI (urinary tract infection) Weight loss Yeast vaginitis Surgical History Surgical History History of colonoscopy History of knee surgery ANUSHA reconstruction. History of lithotripsy x4. History of tonsillectomy Previous section Family History Family History Mother Patient's mother is in good health Family history of arthritis Father Patient's father is in good health Family history of alcoholism Family history of arthritis Fa
[2023-02-22] VITALS (11 sets, daily range): BP systolic 106–126; BP diastolic 60–83; PULSE 75–94; RESP 14–18; TEMP 36.1–36.6; O2SAT 88–100
--- NOTE | 2023-02-22 06:43 | WPDHPUPDATE1 ---
History and Physical Update Update Date/Time: 02/22/23 06:43 History and Physical has been reviewed, including an updated exam of the patient. There are NO changes in the patient's condition. Risks, benefits, and alternatives have been discussed and questions answered. Patient agrees to proceed with procedure.
[2023-02-22] MEDS: LACTATED RINGERS 1,000 ML 30 ML IV CONT ×2 (12:10→15:24)
[2023-02-22] MEDS: KETOROLAC 15 MG/ML VIAL (*BKC) IV PUSH (12:30)
[2023-02-22] MEDS: ACETAMINOPHEN 500 MG TABLET 1000 MG PO (12:30)
[2023-02-22] MEDS: ceFAZolin 2 GM/D5W 50 ML 2 GM/50 ML BAG IVPB (13:58)
[2023-02-22] MEDS: SCOPOLAMINE 1.5 MG PATCH TRANSDERM (14:00)
--- NOTE | 2023-02-22 15:12 | W.PM.PROC2 ---
Procedure Note - Detailed Date of Procedure 02/22/23 Pre-op Diagnosis enlarged uterus, uterine prolapse, pelvic pain Post-op Diagnosis Same Procedure Performed Robotic total vaginal hysterectomy and bilateral salpingectomy Surgeon Freedom Licona MD Anesthesia General Indications Is a 47-year-old female pelvic pain dyspareunia enlarged uterus and heavy bleeding Findings Second-degree prolapse. Normal-appearing ovaries and tubes. Suspected uterine fibroids Description of Procedure Patient was prepped draped in the normal sterile fashion placed in the dorsal lithotomy position. Under excellent general endotracheal anesthesia weighted speculum placed in posterior fornix vagina. Anterior lip of cervix grasped with single-tooth tenaculum. Uterus sounded to 10cm. Serial dilatation with fragmented dilators performed followed by passage of the 10. DELMA and the 3. 0.5 cold cup. Next a 16 Romanian catheter placed in bladder and drained of clear urine. The weighted speculum and single-tooth was removed. The gloves were changed. Use a supraumbilical incision made the Veress needle passed in the abdomen. Abdomen filled with CO2 gas to 15mm Hg. The 8mm trocar advanced in the abdomen. Downside visualized no injury seen. Gas reattached. Patient placed in Trendelenburg and a right left lateral quadrant incisions made. 8mm trocars advanced under direct visualization assuring no injury. A right upper quadrant incision made and the 8mm trocar advanced under direct visualization assuring no injury. The robot was docked. Graph Attention was turned to the console. The left round ligament was grasped, burned, cut and a bladder flap was formed by sharply dissecting the peritoneum a regular this to the opposite round ligament which was clamped, burned, cut. Next the left fallopian tube was skeletonized clamping burning and cutting and leaving this attached to its uterine origin. In like fashion the right fallopian tube was removed by sharply dissecting away from the ovarian complex and leaving it attached at its uterine origin. Next the utero-ovarian ligament on the left was skeletonized to conserve the left ovary and. This was clamped, burned, cut and brought to the level of previously cut round ligament. In like fashion conserving the right ovary the utero-ovarian ligaments clamped, burned, cut and brought to the level of previously cut next cardinal and broad ligaments on the left were serially skeletonized clamping cutting burning and hugging the cervix uterus until the large tortuous uterine vessels could be seen on the left these were individually clamped, burned, cut. Similarly on the right the cardinal broad ligaments were clamped, burned, cut and brought down the lateral edge of the cervix uterus and to the uterine vessels could be seen on the right these were individually clamped, burned, cut. Excellent blanching was seen and a colpotomy incision was made. The cervix and uterus removed through the vagina along with the tubes. The vagina was closed with continuous running 0V lock from lateral edge to lateral edge back to the midline. Irrigation undertaken until clear hemostasis was assured. The robot was undocked. The gas removed from the abdomen the trocars removed. The incisions closed with 4 Monocryl and glue. The patient was awakened and went to recovery in satisfactory condition. All sponge, needle, instrument counts were correct. There were no immediate complications noted Estimated Blood Loss 25 Drains No Packing No Pathology Yes Complications No immediate complications Condition Stable Disposition PACU
--- NOTE | 2023-02-22 15:17 | PM.DS ---
DS: Admitting Diagnosis Discharge Date 02/23/2023 Admitting Diagnosis Irregular bleeding/uterine prolapse/pelvic pain/enlarged uterus DS: Discharge Diagnosis Discharge Diagnosis (1) Irregular bleeding: Code(s): N92.6 - Irregular menstruation, unspecified Status: Acute (2) Dyspareunia: Status: Acute (3) Pelvic pain: Code(s): R10.2 - Pelvic and perineal pain Status: Acute (4) Uterine prolapse: Code(s): N81.4 - Uterovaginal prolapse, unspecified Status: Acute DS: Summary Hospital Course Reason for hospitalization: Patient was admitted for robotic total vaginal hysterectomy and bilateral salpingectomy on 02/22/2023 Hospital Course: Patient underwent an unremarkable procedure on 02/22/2023. Her hospital course unremarkable. She remained afebrile. She was up, eating regular diet, ambulating, voiding without difficulty, and generally without complaints. Time Spent with Patient Time attestation: Total time spent providing and/or coordinating discharge services: Exam Const: General: cooperative, healthy appearing and comfortable Nutritional Appearance: average body habitus Orientation/consciousness: oriented to person, oriented to place and oriented to time HENMT: Head: normal to inspection Resp: Effort & Inspection: normal respiratory effort Cardio: Rate: regular rate Rhythm: regular rhythm Heart sounds: S1 normal heart sound present and S2 normal heart sound present GI: Inspection: normal to inspection and incision (Wounds are clean dry and intact) DS: Data Data Completed and Pending Pending studies at discharge: Pending at discharge 02/22/23 14:40 Surgical [PTH] Routine Discharge Plan Discharge Patient Disposition: Home, Self-Care Stand Alone Forms: General Discharge Instructions Follow-up/Referrals: Freedom Teran MD [Physician] - Discharge Medications: New hydrocodone-acetaminophen 5-325 mg tablet 1 tablet PO Q4H PRN (Reason: pain) Qty: 30 0RF No Action duloxetine 20 mg capsule,delayed release(DR/EC) 40 mg PO HS propranolol 10 mg tablet 10 mg PO QAM bupropion HCl [Wellbutrin XL] 300 mg tablet extended release 24 hr 300 mg PO DAILY trazodone 100 mg tablet 100 mg PO HS potassium citrate 15 mEq tablet extended release 1,620 mg PO BID alprazolam 0.5 mg tablet 1 mg PO BID PRN (Reason: Anxiety) cyanocobalamin (vitamin B-12) 1,000 mcg Tablet 1,000 mcg PO DAILY cholecalciferol (vitamin D3) [Vitamin D3] 125 mcg (5,000 unit) Tablet 5,000 unit PO DAILY lubiprostone [Amitiza] 24 mcg capsule 24 mcg PO DAILY sucralfate [Carafate] 100 mg/mL suspension 1 g PO ACHS Qty: 414 0RF ondansetron 8 mg tablet,disintegrating 8 mg PO Q8H PRN (Reason: nausea and vomiting) Qty: 10 1RF dicyclomine 20 mg tablet 20 mg PO TID PRN (Reason: abdominal pain) Qty: 120 0RF metoclopramide HCl 5 mg tablet 5 mg PO DAILY Qty: 30 2RF sumatriptan succinate 6 mg/0.5 mL pen injector See Rx Instructions .ROUTE .COMPLEX Qty: 2 2RF Dose Instruction: INJECT 0.5 ML UNDER SKIN ONCE FOR HEADACH, MAY REPEAT DOSE ONCE IN 1 HOUR IF NOT RELIEVED Rx Instructions: INJECT 0.5 ML UNDER SKIN ONCE FOR HEADACH, MAY REPEAT DOSE ONCE IN 1 HOUR IF NOT RELIEVED pantoprazole 40 mg tablet,delayed release (DR/EC) See Rx Instructions .ROUTE .COMPLEX Qty: 60 1RF Dose Instruction: TAKE 1 TABLET BY MOUTH TWICE DAILY Rx Instructions: TAKE 1 TABLET BY MOUTH TWICE DAILY
[2023-02-22] MEDS: HYDROmorphone HCL INJ (*CRX) 1 MG/ML SYR IV PUSH ×3 (15:30→16:07)
--- NOTE | 2023-02-22 15:57 | WPDANESEPPF ---
Anes - Initial Pre Proc Eval Procedure: Operation Date: 02/22/23 13:30 Proposed Procedures p Robotic Assisted Total Vaginal Hysterectomy with Bilateral Salpingectomy - Freedom Licona MD Date/Time: 02/22/23 15:57 Surgeon: Freedom Licona MD Pre Op Diagnosis: enlarged uterus, uterine prolapse, pelvic pain Patient Data Age: 47 Gender: F Height: 1.65 m Weight: 92.2 kg Last Vital Signs Temp 36.1 C L 02/22/23 15:24 Pulse 83 02/22/23 15:35 Resp 14 02/22/23 15:35 BP 126/75 02/22/23 15:35 Pulse Ox 100 02/22/23 15:35 O2 Del Method Simple Face Mask 02/22/23 15:35 O2 Flow Rate 6 02/22/23 15:35 Allergies Allergy/AdvReac Type Severity Reaction Status Date / Time No Known Allergies Allergy Verified 02/22/23 12:46 Home Medications Medication Instructions Recorded Confirmed Type bupropion HCl 300 mg 24 hr tablet, 300 mg PO DAILY 05/02/20 02/15/23 History extended release (Wellbutrin XL) duloxetine 20 mg capsule,delayed 40 mg PO HS 05/02/20 02/15/23 History release potassium citrate 15 mEq (1,620 1,620 mg PO BID 05/02/20 02/15/23 History mg) tablet,extended release propranolol 10 mg tablet 10 mg PO QAM 05/02/20 02/15/23 History trazodone 100 mg tablet 100 mg PO HS 05/02/20 02/15/23 History alprazolam 0.5 mg tablet 1 mg PO BID PRN Anxiety 09/15/20 02/15/23 History cholecalciferol (vitamin D3) 125 5,000 unit PO DAILY 09/15/20 02/15/23 History mcg (5,000 unit) tablet (Vitamin D3) cyanocobalamin (vitamin B-12) 1,000 mcg PO DAILY 09/15/20 02/15/23 History 1,000 mcg tablet lubiprostone 24 mcg capsule 24 mcg PO DAILY 11/13/22 02/15/23 History (Amitiza) sucralfate 100 mg/mL oral 1 g (10 mL) PO ACHS #414 mL 11/26/22 02/15/23 Rx suspension (Carafate) ondansetron 8 mg disintegrating 8 mg PO Q8H PRN nausea and 12/23/22 02/15/23 Rx tablet vomiting #10 tabs dicyclomine 20 mg tablet 20 mg PO TID PRN abdominal pain 12/25/22 02/15/23 Rx #120 tabs metoclopramide HCl 5 mg tablet 5 mg PO DAILY #30 tabs 12/25/22 02/15/23 Rx sumatriptan succinate 6 mg/0.5 mL See Rx Instructions .Route 01/24/23 02/15/23 Rx subcutaneous pen injector .COMPLEX #2 mL pantoprazole 40 mg tablet,delayed See Rx Instructions .Route 02/18/23 Rx release .COMPLEX #60 tabs hydrocodone 5 mg-acetaminophen 325 1 tablet PO Q4H PRN pain #30 tabs 02/22/23 Rx mg tablet Patient hx anesthesia problems: none Family hx anesthesia problems: none Results Review: All pre-operative results and documents have been reviewed as part of the pre-operative evaluation. [facility] Past Medical History Medical History Abdominal pain in female Abnormal serum lipase level Abnormal weight gain Acute cystitis without hematuria Acute diverticulitis Acute non-recurrent pansinusitis Acute shoulder pain Adult idiopathic generalized osteoporosis Age-related osteoporosis with current pathological fracture, unspecified ankle and foot, initial encounter for fracture Anemia Anxiety Arthralgia Arthritis Arthritis of both knees Aspiration into airway Atrial tachycardia Bilateral tinnitus Body mass index (bmi) 39.0-39.9, adult (01/12/19) Bone spur of left foot Chills Chronic migraine Chronic narcotic use Chronic pain syndrome Colon cancer screening Cyst of ovary Decreased appetite Diarrhea Dietary counseling and surveillance (08/25/15) Diverticulitis of large intestine without perforation or abscess Diverticulosis of intestine, part unspecified, without perforation or abscess with bleeding Duodenal ulcer Dysphagia Dysuria Meredith-Danlos syndrome Elevated lipase Epigastric pain Establishing care with new doctor, encounter for Excessive thirst Fatigue Fear of flying Fibromyalgia Gastric ulcer Gastroesophageal reflux disease Generalized abdominal pain Generalized anxiety disorder History of dislocation of knee History of kidney stones Hoarseness Hyp
--- NOTE | 2023-02-22 16:49 | ADMGEN ---
1644-This patient, Madalyn Smith, was admitted to OB 2nd Floor Room 289-00. Patient/family oriented to hospital policies and general routines including ID bracelet, bed and alarms, visiting hours, pain management, procedures, bathroom and other care routines, personal items, smoking policy, room service/diet, and visiting hours. Information on how to activate the Rapid Response Team has been discussed. Patient/Family are encouraged to report perceived risks to care and to ask questions if they do not understand what they are told or what they should do.
[2023-02-22] MEDS: KETOROLAC 30 MG/ML VIAL (*BKC) IV PUSH (17:14)
[2023-02-22] MEDS: DEXTROSE 5%/LACTATED RINGERS 1,000 ML 125 ML IV CONT (17:14)
[2023-02-22] MEDS: HYDROcodone/acetaminophen (*CRX) 5-325 MG TABLET 1 TAB PO (20:52)
[2023-02-22] MEDS: HYDROcodone/acetaminophen (*CRX) 10-325 MG TABLET 1 TAB PO (22:20)
[2023-02-23] MEDS: KETOROLAC 30 MG/ML VIAL (*BKC) IV PUSH (00:24)
[2023-02-23] MEDS: HYDROcodone/acetaminophen (*CRX) 10-325 MG TABLET 1 TAB PO (02:11)
[2023-02-23 05:29] VITALS: BP 117/71; PULSE 83; RESP 18; TEMP 36.5; O2SAT 95
[2023-02-23 05:50] LABS: Basophils Percent Auto 0.3 % (0.2-1.2); Eosinophils Percent Auto 0.1 % (0-4.4); Hematocrit 40.1 % (37.0-47.0); Hemoglobin 12.2 g/dL (12.0-15.0); Immature Granulocyte Absolute 0.08 K/mm3 (0.00-0.031); Immature Granulocyte Percent A 0.6 % (0-0.5); Lymphocytes Absolute Auto 1.13 K/mm3 (0.9-3.2); Lymphocytes Percent Auto 8.8 % (18.3-44.2); Mean Corpuscular HGB Conc 30.4 g/dl (32-36); Mean Corpuscular Hemoglobin 27.1 pg (26-34); Mean Corpuscular Volume 88.9 fl (80-100); Mean Platelet Volume 8.8 fl (7.4-10.4); Monocytes Absolute Auto 0.2 K/mm3 (0.1-0.6); Monocytes Percent Auto 1.6 % (2.6-8.5); Neutrophils Absolute Auto 11.4 K/mm3 (1.3-6.7); Neutrophils Percent Auto 88.6 % (45.5-73.1); Platelet Count Result 350 k/mm3 (150-375); Red Blood Count 4.51 M/mm3 (4.2-5.4); Red Cell Distribution Width 14.2 % (11.5-14.5); White Blood Count 12.8 K/mm3 (4.5-10.0)
--- NOTE | 2023-02-23 05:53 | PM.GYNPNOP ---
RELAY ASSOCIATE - A/P Postoperative Procedures: Procedures Operation Date: 02/22/23 13:30 Actual Procedure Side Surgeon p Robotic Assisted Total Vaginal Hysterectomy with Bilateral Salpingectomy Not Applicable Freedom Licona MD Postoperative day: 1 Postoperative status: doing well Postoperative plan: routine post-op care, see orders, ambulate, advance diet, voiding trials and discharge Time Spent With Patient Time: Total time spent is greater than 50% in coordination of care (as documented) at patient's floor/unit and/or counseling patient: Time with patient: less than 15 minutes RELAY ASSOCIATE- PN:Subj Post-Op Subjective Date/time seen: 02/23/23 05:53 Subjective: patient reports feeling better, patient has no complaints and pain is well controlled Exam Const: General: cooperative, healthy appearing and comfortable Nutritional Appearance: average body habitus Orientation/consciousness: oriented to person, oriented to place and oriented to time HENMT: Head: normal to inspection Resp: Effort & Inspection: normal respiratory effort Cardio: Rate: regular rate Rhythm: regular rhythm Heart sounds: S1 normal heart sound present and S2 normal heart sound present GI: Inspection: normal to inspection and incision (cdi) RELAY ASSOCIATE - PN: Obj Data Vital Signs Vital Signs: Vital Signs - 24 hr 02/22/23 12:30 02/22/23 15:24 02/22/23 15:35 Temperature 97.6 F 96.9 F L Pulse Rate 94 82 83 Respiratory Rate 16 15 14 Blood Pressure 125/81 121/83 126/75 Pulse Oximetry 100 100 100 Oxygen Delivery Room Air Simple Face Mask Simple Face Mask Oxygen Flow Rate 6 6 02/22/23 15:50 02/22/23 16:00 02/22/23 16:05 Temperature Pulse Rate 83 80 Respiratory Rate 14 14 Blood Pressure 118/70 114/77 Pulse Oximetry 100 94 Oxygen Delivery Simple Face Mask Room Air Room Air Oxygen Flow Rate 6 02/22/23 16:15 02/22/23 16:20 02/22/23 16:35 Temperature Pulse Rate 81 75 Respiratory Rate 14 16 Blood Pressure 111/66 109/70 Pulse Oximetry 88 L 100 100 Oxygen Delivery Nasal Cannula Nasal Cannula Nasal Cannula Oxygen Flow Rate 2 2 2 02/22/23 17:00 02/22/23 17:00 02/22/23 17:00 Temperature 97.6 F 97.6 F Pulse Rate 81 81 81 Respiratory Rate 16 16 16 Blood Pressure 106/60 106/60 Pulse Oximetry 98 98 98 Oxygen Delivery Nasal Cannula Oxygen Flow Rate 2 02/22/23 21:09 02/22/23 23:56 Temperature 97.9 F 97.4 F L Pulse Rate 80 77 Respiratory Rate 18 18 Blood Pressure 119/68 111/69 Pulse Oximetry 99 95 Oxygen Delivery Oxygen Flow Rate Intake/Output Intake/Output: Intake & Output 02/20/23 02/21/23 02/22/23 02/23/23 23:59 23:59 23:59 23:59 Intake Total 850 Output Total 35 Balance 815 Meds/Results Medications: Active Medications Generic Name Dose Route Start Last Admin Trade Name Freq PRN Reason Stop Dose Admin Hydrocodone Bitart/Acetaminophen 1 tab 02/22/23 16:38 02/22/23 20:52 Hydrocodone/Acetaminophen (*Crx) 5-325 Mg Tablet PO 1 tab Q3H PRN Administration Pain Rated 5 or Less Hydrocodone Bitart/Acetaminophen 1 tab 02/22/23 16:38 02/23/23 02:11 Hydrocodone/Acetaminophen (*Crx) 10-325 Mg Tablet PO 1 tab Q3H PRN Administration Pain Rated 6 or Greater Docusate Sodium 100 mg 02/22/23 17:00 02/22/23 18:49 Docusate Sodium 100 Mg Capsule PO Not Given BID ANNE Enoxaparin Sodium 40 mg 02/23/23 09:00 Enoxaparin 40 Mg/0.4 Ml Syringe SUB-Q DAILY ANNE Dextrose/Lactated Ringer's 1,000 mls @ 125 mls/hr 02/22/23 16:38 02/22/23 17:14 Dextrose 5%/Lactated Ringers IV CONT 125 mls/hr .Q8H ANNE Administration Ibuprofen 600 mg 02/22/23 16:38 Ibuprofen 600 Mg Tablet PO Q6H PRN Cramping Ketorolac Tromethamine 30 mg 02/22/23 16:38 02/23/23 00:24 Ketorolac 30 Mg/Ml Vial (*Bkc) IV PUSH 02/27/23 16:37 30 mg Q6H PRN Administration Pain Rated 4-6 Naloxone HCl 0.1 mg 02/22/23 16:38 Naloxone Hcl 0.4 Mg/Ml Vial IV PUSH
[2023-02-23] MEDS: HYDROcodone/acetaminophen (*CRX) 5-325 MG TABLET 1 TAB PO ×2 (05:56→09:39)
[2023-02-23 07:15] VITALS: BP 117/65; PULSE 92; RESP 16; TEMP 36.4
[2023-02-23] MEDS: ENOXAPARIN 40 MG/0.4 ML SYRINGE SUB-Q (07:33)
[2023-02-23] MEDS: IBUPROFEN 600 MG TABLET PO (09:39)
--- NOTE | 2023-02-23 09:58 | WPDANESPN ---
Anes - Prog Note Post-Op Date/Time: 02/23/23 09:58 Cardiovascular status: normal Respiratory status: normal Airway patency: baseline Mental status: baseline Post-Op hydration status: normal Vital Signs: Last Vital Signs Temp 97.7 F 02/23/23 05:29 Pulse 83 02/23/23 05:29 Resp 18 02/23/23 05:29 BP 117/71 02/23/23 05:29 Pulse Ox 95 02/23/23 05:29 O2 Del Method Room Air 02/23/23 05:29 O2 Flow Rate 2 02/22/23 23:56 Pain Score (VAS): 6 I/O: Intake & Output 02/22/23 02/23/23 02/23/23 23:59 07:59 15:59 Intake Total 800 740 Output Total 35 2000 Balance 765 -1260 Laboratory Tests 02/23/23 05:44 02/23/23 05:44 WBC 12.8 H RBC 4.51 Hgb 12.2 Hct 40.1 MCV 88.9 MCH 27.1 MCHC 30.4 L RDW 14.2 Plt Count 350 MPV 8.8 Immature Gran % (Auto) 0.6 H Neut % (Auto) 88.6 H Lymph % (Auto) 8.8 L [place] % (Auto) 1.6 L Eos % (Auto) 0.1 Baso % (Auto) 0.3 Lymph # (Auto) 1.13 [place] # (Auto) 0.2 Eos # (Auto) 0.0 Baso # (Auto) 0.0 Abs Immat Gran (auto) 0.08 H Absolute Neuts (auto) 11.4 H Absolute Nucleated RBC 0.0 Nucleated RBC % 0.0 Post-procedural complaints: none Patient Feedback: Patient satisfied with anesthetic care.
== END 2023-02-23 11:15 | disposition home or self-care (01) ==
LOC: ANHSURGERY 11:31 → ANHOB2 16:47
PROVIDERS: PCP Internal Medicine; Visit Provider Obstetrics & Gynecology
PROC: (CPT 58552; principal; 2023-02-22 13:30)
DX: R10.2 Pelvic and perineal pain (principal); N94.10 Unspecified dyspareunia; N72 Inflammatory disease of cervix uteri; N81.4 Uterovaginal prolapse, unspecified; N92.6 Irregular menstruation, unspecified; F41.9 Anxiety disorder, unspecified; Z23 Encounter for immunization; Z79.890 Hormone replacement therapy; G43.909 Migraine, unspecified, not intractable, without status migrainosus; G89.4 Chronic pain syndrome; K58.1 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 syndrome with constipation; Q79.60 Ehlers-Danlos syndrome, unspecified; E66.9 Obesity, unspecified; Z68.33 Body mass index [BMI] 33.0-33.9, adult; K21.9 Gastro-esophageal reflux disease without esophagitis; E03.9 Hypothyroidism, unspecified; E87.6 Hypokalemia; Z87.891 Personal history of nicotine dependence; F10.90 Alcohol use, unspecified, uncomplicated; F12.90 Cannabis use, unspecified, uncomplicated; N88.8 Other specified noninflammatory disorders of cervix uteri
CPT/HCPCS: 58552; S2900; 36415; 85025; 88307; 90471; 90686; 99199; A9270; G0008; J0690; J1100; J1170; J1650; J1885; J2250; J2405; J2704; J3010; J7120; J7121

== ENCOUNTER 2023-03-26 14:46 | Outpatient (CLI) | payer BC, SELFPAY ==
--- NOTE | ~2023-03-26 | CT_ITS ---
Non-contrast CT scan of the Abdomen and Pelvis Clinical indication: Renal stones Technique: 2.5 mm axial scans were obtained through the abdomen and pelvis without intravenous or or al contrast. Dose reduction technique was used on this scan by utilizing automated exposure control a nd iterative reconstruction technique. The dose-length product (DLP) was 432.20 mGy-cm. COMPARISON: 01/09/2023 Findings: Images through the lung bases reveal partially imaged groundglass opacity in the right upp er lobe. There are small bilateral nonobstructing renal calculi, measuring up to approximately 3 mm maximum. N o ureteral stone or hydronephrosis on either side. 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 Calcified splenic granulomas are note d. The pancreas, gallbladder, and adrenals appear normal. There is no aortic aneurysm. There is no evidence of bowel obstruction. Duodenal diverticulum noted. Images through the pelvis were performed. There is no evidence of ascites or lymphadenopathy. Urinary bladder unremarkable. No pelvic mass seen. Impression: Small bilateral nonobstructing renal calculi. No ureteral stone or hydronephrosis. Partially imaged area of groundglass opacification the right upper lobe. Pneumonia is a consideration . Correlate clinically. Consider dedicated chest imaging as indicated. Reviewed, dictated and finalized at [facility]. [employer]ER Impression: Small bilateral nonobstructing renal calculi. No ureteral stone or hydronephros is. Partially imaged area of groundglass opacification the right upper lobe. Pneumo christiano is a consideration. Correlate clinically. Consider dedicated chest imaging as indicated.
== END 2023-03-26 14:47 | disposition home or self-care (01) ==
PROVIDERS: PCP Internal Medicine; Visit Provider Urology
DX: N20.0 Calculus of kidney (principal)
CPT/HCPCS: 74176

== ENCOUNTER 2023-04-04 01:32 | Day surgery (SDC) | payer BC, SELFPAY ==
[2023-04-02 12:37] VITALS: BMI 33.8
--- NOTE | 2023-04-02 12:38 | PC.NURSE ---
Report to the Outpatient Waiting Room, entrance under the green pavilion located off [facility], at time 0730 on date 04/04/23. Planned Procedure Time: 0930. Time changes happen often and if your time is changed the preop area will call you the afternoon before. - You and your visitor will be asked to self-screen and do not enter if you have any COVID symptoms. - A mask is optional within the hospital at this time. Patients may have clear liquids (water, carbonated beverages, clear teas, apple juice) until 3 hours prior to surgery with a maximum of 20 ounces. - No food from midnight until time of surgery Take the following medications with a SIP of water the morning of surgery: ALPRAZOLAM, BUPROPION, METOCLOPRAMIDE, PROPRANOLOL DO NOT STOP ANY OF YOUR OTHER PRESCRIPTION MEDICATIONS PRIOR TO SURGERY ?EXCEPT THE FOLLOWING Medications to discontinue per physician: VITAMINS Date to take last dose: NO MORE UNTIL AFTER SURGERY Please no make-up, nail cuban, hairspray, perfume, deodorant, or body powder the day of surgery. No jewelry (including any body piercings) or valuables the day of surgery, leave them at home. Please take a shower or bath the night before, or the morning of, surgery with an antibacterial soap. Wear comfortable, loose fitting clothing. - Jewelry must be removed prior to entering the operating room. Rings and piercings that are not removed may be cut off. - The hospital will not accept responsibility for valuables. - Please leave all valuables, including medications, at home the day of surgery. If you are going home after surgery, a licensed local tanker truck driver must drive you home. - NO public transportation without another adult if you receive anesthesia. - We recommend that an adult stay with you for 24 hours following discharge. - We also recommend that you do not drive, make important decision, drink alcoholic beverages, or take any drugs that were not prescribed by your health care provider for at least 24 hours after your discharge time. Follow any additional instructions given to you from your surgeon. If you or anyone in your household have experienced Covid symptoms in the past week, please notify your surgeon or the nurse liaison at the phone number below for possible testing. Telephone instructions given to PT - JULIAN SAUER and asked if any additional questions and then verbalized understanding. Patient advised to call surgeon office or pre surgery nurse liaison [phone] if any additional questions.
[2023-04-04] VITALS (9 sets, daily range): BP systolic 101–142; BP diastolic 66–92; PULSE 68–93; RESP 12–20; TEMP 36.1–36.2; O2SAT 96–100
--- NOTE | ~2023-04-04 | XR_ITS ---
EXAMINATION: XR retrograde pyelo w/stent BI DATE: 04/04/2023 11:00 INDICATION: Bilateral internal ureteral stent placement TECHNIQUE: Fluoroscopic images from a bilateral stent placement are submitted for review. 70 seconds of fluoroscopy time. 9 fluoroscopic images FINDINGS: There are bilateral double-J internal ureteral stent projecting in expected position, with proximal C ope loop at the level of the renal pelvis and distal loop in the pelvis within the bladder lumen. IMPRESSION: 1. Bilateral internal ureteral stent placement. Please refer to real-time procedural findings for d etails. Reviewed, dictated and finalized at location A. BOX TENDER IMPRESSION: 1. Bilateral internal ureteral stent placement. Please refer to real-time pro cedural findings for details.
--- NOTE | 2023-04-04 06:29 | WPDHPUPDATE1 ---
History and Physical Update Update Date/Time: 04/04/23 06:29 History and Physical has been reviewed, including an updated exam of the patient. There are NO changes in the patient's condition. Risks, benefits, and alternatives have been discussed and questions answered. Patient agrees to proceed with procedure.
--- NOTE | 2023-04-04 08:42 | WPDANESEPPF ---
Anes - Initial Pre Proc Eval Procedure: Operation Date: 04/04/23 09:30 Proposed Procedures p Cystoscopy, Bilateral Retrograde Pyelogram, Bilateral Ureteroscopy with Stone Extraction, Possible Bilateral Stent, Possible Holmium Laser Lithotripsy - Jorge Aguiar MD Date/Time: 04/04/23 08:42 Surgeon: Jorge Aguiar MD Pre Op Diagnosis: bilateral renal stones Patient Data Age: 47 Gender: F Height: 1.65 m Weight: 94 kg Last Vital Signs Temp 97.1 F L 04/04/23 07:50 Pulse 93 04/04/23 07:50 Resp 16 04/04/23 07:50 BP 124/75 04/04/23 07:50 Pulse Ox 100 04/04/23 07:50 O2 Del Method Room Air 04/04/23 07:50 Allergies Allergy/AdvReac Type Severity Reaction Status Date / Time No Known Allergies Allergy Verified 04/04/23 07:35 Home Medications Medication Instructions Recorded Confirmed Type bupropion HCl 300 mg 24 hr tablet, 300 mg PO DAILY 05/02/20 04/02/23 History extended release (Wellbutrin XL) duloxetine 20 mg capsule,delayed 40 mg PO HS 05/02/20 04/02/23 History release potassium citrate 15 mEq (1,620 1,620 mg PO BID 05/02/20 04/02/23 History mg) tablet,extended release propranolol 10 mg tablet 10 mg PO QAM 05/02/20 04/02/23 History trazodone 100 mg tablet 100 mg PO HS 05/02/20 04/02/23 History alprazolam 0.5 mg tablet 1 mg PO BID PRN Anxiety 09/15/20 04/02/23 History cholecalciferol (vitamin D3) 125 5,000 unit PO DAILY 09/15/20 04/02/23 History mcg (5,000 unit) tablet (Vitamin D3) cyanocobalamin (vitamin B-12) 1,000 mcg PO DAILY 09/15/20 04/02/23 History 1,000 mcg tablet lubiprostone 24 mcg capsule 24 mcg PO DAILY 11/13/22 04/02/23 History (Amitiza) sucralfate 100 mg/mL oral 1 g (10 mL) PO ACHS #414 mL 11/26/22 04/02/23 Rx suspension (Carafate) dicyclomine 20 mg tablet 20 mg PO TID PRN abdominal pain 12/25/22 04/02/23 Rx #120 tabs sumatriptan succinate 6 mg/0.5 mL See Rx Instructions .Route 01/24/23 04/02/23 Rx subcutaneous pen injector .COMPLEX #2 mL pantoprazole 40 mg tablet,delayed See Rx Instructions .Route 02/18/23 04/02/23 Rx release .COMPLEX #60 tabs metoclopramide HCl 5 mg tablet See Rx Instructions .Route 03/19/23 04/02/23 Rx .COMPLEX #30 tabs ondansetron 8 mg disintegrating See Rx Instructions .Route 03/19/23 04/02/23 Rx tablet .COMPLEX #10 tabs Patient hx anesthesia problems: none Family hx anesthesia problems: none Results Review: All pre-operative results and documents have been reviewed as part of the pre-operative evaluation. [facility] Past Medical History Medical History Abdominal pain in female Abnormal serum lipase level Abnormal weight gain Acute cystitis without hematuria Acute diverticulitis Acute non-recurrent pansinusitis Acute shoulder pain Adult idiopathic generalized osteoporosis Age-related osteoporosis with current pathological fracture, unspecified ankle and foot, initial encounter for fracture Anemia Anxiety Arthralgia Arthritis Arthritis of both knees Aspiration into airway Atrial tachycardia Bilateral tinnitus Body mass index (bmi) 39.0-39.9, adult (01/12/19) Bone spur of left foot Chills Chronic migraine Chronic narcotic use Chronic pain syndrome Colon cancer screening Cyst of ovary Decreased appetite Diarrhea Dietary counseling and surveillance (08/25/15) Diverticulitis of large intestine without perforation or abscess Diverticulosis of intestine, part unspecified, without perforation or abscess with bleeding Duodenal ulcer Dysphagia Dysuria Meredith-Danlos syndrome Elevated lipase Epigastric pain Establishing care with new doctor, encounter for Excessive thirst Fatigue Fear of flying Fibromyalgia Gastric ulcer Gastroesophageal reflux disease Generalized abdominal pain Generalized anxiety disorder History of dislocation of knee History of kidney stones Hoarseness Hyperextension deformity of knee Hyperthyroidism Hypokalemia
[2023-04-04] MEDS: LACTATED RINGERS 1,000 ML 30 ML IV CONT (09:03)
[2023-04-04] MEDS: ceFAZolin 2 GM/D5W 50 ML 2 GM/50 ML BAG IVPB (09:48)
--- NOTE | 2023-04-04 10:52 | W.PM.PROC2 ---
Procedure Note - Detailed Date of Procedure 04/04/23 Pre-op Diagnosis Bilateral renal stones Post-op Diagnosis Same Procedure Performed Cystoscopy, bilateral ureteroscopy with stone extraction, bilateral ureteral stent placement Surgeon Jorge Aguiar MD Anesthesia General Description of Procedure patient is brought to the operative suite where she has prepped draped in routine sterile fashion while in dorsal lithotomy position after the uneventful induction of a general LMA anesthetic. Cystoscopy was undertaken with a 19 F rigid cystoscope. Bladder neck and urethra endoscopically normal. Bladder mucosa is normal, without hyperemia. There was no intravesical foreign body or neoplasm. She has a single orthotopic ureteral orifice bilaterally. The ureters and collecting system were accessed in a similar fashion bilaterally. A 0.035 in glidewire stance into the renal pelvis. The distal ureter was dilated with an 8 F 10 F dilator and a 11F/13 F ureteral access sheath was placed with a safety wire in position. Flexible ureteroscopy was undertaken with a 7.5 F flexible scope. On the right they are 3 or 4 small stones which were extracted with a 1.9F 0 tip basket. There were a couple small Oswaldo's plaques in very small calices which I could not access. On the left 3 small stones were extracted with the stable disposable stone basket. 4.8 F variable length stents were positioned bilaterally with the proximal coil in the kidney and distal coil in the bladder. Scopes wire was removed she was taken recovery room in good condition Drains Yes Packing No Pathology Yes Complications No immediate complications Condition Stable
[2023-04-04] MEDS: fentaNYL CITRATE INJ (*CRX) 100 MCG/2 ML VIAL 25 MCG IV PUSH ×8 (11:19→11:36)
[2023-04-04] MEDS: ONDANSETRON INJ 4 MG/2 ML VIAL IV PUSH (11:47)
[2023-04-04] MEDS: oxyCODONE HCL (*CRX) 5 MG TAB IR PO (12:21)
== END 2023-04-04 12:42 | disposition home or self-care (01) ==
PROVIDERS: PCP Internal Medicine; Visit Provider Urology
PROC: (CPT 52352; principal; 2023-04-04 09:30)
DX: N20.0 Calculus of kidney (principal); Q79.60 Ehlers-Danlos syndrome, unspecified; F41.1 Generalized anxiety disorder; K21.9 Gastro-esophageal reflux disease without esophagitis; M81.0 Age-related osteoporosis without current pathological fracture; M06.09 Rheumatoid arthritis without rheumatoid factor, multiple sites; F12.90 Cannabis use, unspecified, uncomplicated; Z87.891 Personal history of nicotine dependence
CPT/HCPCS: 52332; 52352; 74420; 82365; 88300; A9270; C1769; C1894; C2617; J0690; J1100; J1885; J2250; J2405; J2704; J3010; J7120; Q9966

== ENCOUNTER 2023-06-11 17:41 | Emergency (ER) | payer BC, SELFPAY ==
--- NOTE | ~2023-06-11 | CT_ITS ---
CT of the Abdomen and Pelvis: Indication: Abdominal pain Technique: 2.5 mm axial scans were obtained through the abdomen and pelvis following intravenous adm inistration of 100 cc of Omnipaque 350. Dose reduction technique was used on this scan by utilizing a utomated exposure control and iterative reconstruction technique. The dose-length product (DLP) was 1 112.87 mGy-cm. COMPARISON: 03/26/2023 Findings: Scans through the lung bases are unremarkable. The liver, spleen, pancreas, gallbladder, and adrenal glands are within normal limits. Small bilatera l nonobstructing renal stones noted. No evidence of aortic aneurysm. No lymphadenopathy. No bowel obstruction or bowel wall thickening. There is no evidence to suggest acute appendicitis. Images through the pelvis were performed. Urinary bladder unremarkable. No pelvic mass seen. No ascit es. Impression: Small bilateral nonobstructing renal stones. Reviewed, dictated and finalized at [facility]. 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
[2023-06-11 18:01] VITALS: BP 146/98; PULSE 114; RESP 16; TEMP 36.3; O2SAT 100
--- NOTE | 2023-06-11 18:05 | ED.ABDPAIN ---
HPI - Abdominal Pain General Chief Complaint: Abdominal Pain <Jyoti Flaherty PA-C - Last Filed: 06/12/23 13:40> Stated Complaint: diarrhea PCP told come to ED <Jyoti Flaherty PA-C - Last Filed: 06/12/23 13:40> Time Seen by Provider: 06/11/23 18:05 <Jyoti Flaherty PA-C - Last Filed: 06/12/23 13:40> Focused HPI: This is a 48 year old female that presents to the ER for abdominal pain. Ongoing over the last week. Associated with diarrhea. Denies fever, or vomiting. GENERAL: Well-appearing, well-nourished, and in no acute distress. HEAD: Normocephalic, atraumatic. CHEST: Clear to auscultation. ?No respiratory distress. HEART: Regular rate and rhythm.? NEURO: ?Alert and oriented x3. Patient screened in triage and initial orders placed.? ?Additional care and disposition to be based upon?diagnostic testing and treatment. <Jyoti Flaherty PA-C - Last Filed: 06/12/23 13:40> History of Present Illness HPI narrative: 48-year-old female presenting to the emergency department for evaluation of left lower quadrant pain. Patient states she has had diarrhea over the course of the last week. Patient reports she does have a significant history of diverticulitis. Patient called her physician regarding the symptoms and she was referred to the emergency department. <Oscar Corado MD - Last Filed: 06/15/23 14:02> Related Data Home Medications: Home Medications Medication Instructions Recorded Confirmed bupropion HCl 300 mg 24 hr tablet, 300 mg PO DAILY 05/02/20 05/07/23 extended release (Wellbutrin XL) duloxetine 20 mg capsule,delayed 40 mg PO HS 05/02/20 05/07/23 release potassium citrate 15 mEq (1,620 1,620 mg PO BID 05/02/20 05/07/23 mg) tablet,extended release propranolol 10 mg tablet 10 mg PO QAM 05/02/20 05/07/23 trazodone 100 mg tablet 100 mg PO HS 05/02/20 05/07/23 alprazolam 0.5 mg tablet 1 mg PO BID PRN Anxiety 09/15/20 05/07/23 cholecalciferol (vitamin D3) 125 5,000 unit PO DAILY 09/15/20 05/07/23 mcg (5,000 unit) tablet (Vitamin D3) cyanocobalamin (vitamin B-12) 1,000 mcg PO DAILY 09/15/20 05/07/23 1,000 mcg tablet lubiprostone 24 mcg capsule 24 mcg PO DAILY 11/13/22 05/07/23 (Amitiza) <Jyoti Flaherty PA-C - Last Filed: 06/12/23 13:40> Allergies/Adverse Reactions: Allergies Allergy/AdvReac Type Severity Reaction Status Date / Time No Known Allergies Allergy Verified 05/07/23 10:43 <Jyoti Flaherty PA-C - Last Filed: 06/12/23 13:40> Review of Systems Review of Systems: All systems reviewed & are unremarkable except as noted in HPI and below <Oscar Corado MD - Last Filed: 06/15/23 14:02> [facility] Past Medical History Medical History: Medical History Abdominal pain in female Abnormal serum lipase level Abnormal weight gain Acute cystitis without hematuria Acute diverticulitis Acute non-recurrent pansinusitis Acute shoulder pain Adult idiopathic generalized osteoporosis Age-related osteoporosis with current pathological fracture, unspecified ankle and foot, initial encounter for fracture Anemia Anxiety Arthralgia Arthritis Arthritis of both knees Aspiration into airway Atrial tachycardia Bilateral tinnitus Body mass index (bmi) 39.0-39.9, adult (01/12/19) Bone spur of left foot Chills Chronic migraine Chronic narcotic use Chronic pain syndrome Colon cancer screening Cyst of ovary Decreased appetite Diarrhea Dietary counseling and surveillance (08/25/15) Diverticulitis of large intestine without perforation or abscess Diverticulosis of intestine, part unspecified, without perforation or abscess with bleeding Duodenal ulcer Dysphagia Dysuria Meredith-Danlos syndrome Elevated lipase Epigastric pain Establishing care with new doctor, encounter for Excessive thirst Fatigue Fear of flying Fibromyalgia Gastric ulcer Gastroesophageal reflux disease Generalized abdominal pain Gene
[2023-06-11 22:07] LABS: Basophils Absolute Auto 0.1 K/mm3 (0.0-0.1); Eosinophils Absolute Auto 0.1 K/mm3 (0-0.3); Eosinophils Percent Auto 1.5 % (0-4.4); Hematocrit 40.6 % (37.0-47.0); Hemoglobin 12.3 g/dL (12.0-15.0); Immature Granulocyte Absolute 0.08 K/mm3 (0.00-0.031); Immature Granulocyte Percent A 0.8 % (0-0.5); Lymphocytes Percent Auto 32.5 % (18.3-44.2); Mean Corpuscular HGB Conc 30.3 g/dl (32-36); Mean Corpuscular Hemoglobin 25.5 pg (26-34); Mean Corpuscular Volume 84.1 fl (80-100); Mean Platelet Volume 8.6 fl (7.4-10.4); Monocytes Absolute Auto 0.6 K/mm3 (0.1-0.6); Monocytes Percent Auto 5.9 % (2.6-8.5); Neutrophils Absolute Auto 5.6 K/mm3 (1.3-6.7); Neutrophils Percent Auto 58.3 % (45.5-73.1); Platelet Count Result 339 k/mm3 (150-375); Red Blood Count 4.83 M/mm3 (4.2-5.4); Red Cell Distribution Width 14.8 % (11.5-14.5); White Blood Count 9.5 K/mm3 (4.5-10.0)
[2023-06-11 22:17] LABS: Alanine Aminotransferase 21 U/L (6-35); Albumin Level 4.4 g/dL (3.5-5.1); Alkaline Phosphatase 71 U/L (38-126); Anion Gap 11 mmol/L (8-16); Aspartate Amino Transferase 25 U/L (14-36); Bilirubin,Total 0.6 mg/dL (0.2-1.3); Blood Urea Nitrogen 15 mg/dL (7-17); Carbon Dioxide 21 mmol/L (22-30); Chloride 102 mmol/L (98-107); Estimated CRCL calculation 76 ml/min; Estimated Glomerular Filt Rate > 60; Glucose 96 mg/dL (65-110); Lipase 346 U/L (23-300); Potassium 3.9 mmol/L (3.4-5.0); Sodium 134 mmol/L (137-145)
[2023-06-11 22:51] LABS: Appearance Urine Cloudy (Clear); Bacteria Urine None Seen /hpf; Bilirubin Urine Negative (Negative); Blood Urine Negative (Negative); Color Urine Yellow (Yellow); Glucose Urine UA Negative (Negative); Ketones Urine Negative (Negative); Leukocyte Esterase Ur 2+ LEU/UL (Negative); Need Manual Microscopic Reviewed; Nitrate Urine Negative (Negative); Non Pathogenic Casts 0-2; Protein Urine Negative (Negative); RBC Urine 51-100 /hpf (0-2); Specific Grav Ur 1.016 (1.001-1.035); Squamous Epithelial Cell Urine Few /hpf (Few); Urobilinogen Urine 0.2 mg/dL (<2.0); pH Urine 5.5 (5.0-9.0)
[2023-06-11 22:55] LABS: Add Urine Microscopic? YES
[2023-06-11 23:48] VITALS: BP 153/89; PULSE 103; RESP 16; O2SAT 100
[2023-06-12] MEDS: HYDROmorphone HCL INJ (*CRX) 1 MG/ML SYR 0.5 MG IV PUSH (01:17)
[2023-06-12] MEDS: ONDANSETRON INJ 4 MG/2 ML VIAL IV PUSH (01:17)
[2023-06-12] MEDS: HYDROmorphone HCL INJ (*CRX) 1 MG/ML SYR IV PUSH (02:45)
[2023-06-12 02:48] VITALS: BP 134/88; PULSE 101; RESP 15; O2SAT 100
== END 2023-06-12 05:09 | disposition home or self-care (01) ==
PROVIDERS: Physician Assistant; Emergency Provider Emergency Medicine; PCP Internal Medicine
DX: N39.0 Urinary tract infection, site not specified (principal); R10.32 Left lower quadrant pain; G89.4 Chronic pain syndrome; Q79.60 Ehlers-Danlos syndrome, unspecified; K21.9 Gastro-esophageal reflux disease without esophagitis; E55.9 Vitamin D deficiency, unspecified; E05.90 Thyrotoxicosis, unspecified without thyrotoxic crisis or storm; E66.3 Overweight; Z68.34 Body mass index [BMI] 34.0-34.9, adult; K58.1 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 syndrome with constipation; F41.1 Generalized anxiety disorder; M81.0 Age-related osteoporosis without current pathological fracture; M47.816 Spondylosis without myelopathy or radiculopathy, lumbar region; M06.9 Rheumatoid arthritis, unspecified; M17.0 Bilateral primary osteoarthritis of knee; M79.7 Fibromyalgia; Z87.11 Personal history of peptic ulcer disease; Z87.891 Personal history of nicotine dependence; Z87.01 Personal history of pneumonia (recurrent); Z86.2 Personal history of diseases of the blood and blood-forming organs and certain disorders involving the immune mechanism; Z87.442 Personal history of urinary calculi; N20.0 Calculus of kidney
CPT/HCPCS: 36415; 74177; 80053; 81001; 81025; 83690; 85025; 87086; 96365; 96375; 96376; 99284; J0696; J1170; J2405; Q9967

== ENCOUNTER 2023-07-25 01:02 | Day surgery (SDC) | payer BC, SELFPAY ==
[2023-07-12 14:36] VITALS: BMI 32.3
--- NOTE | 2023-07-25 08:56 | WPDANESEPPF ---
Anes - Initial Pre Proc Eval Procedure: Operation Date: 07/25/23 14:30 Proposed Procedures p Colonoscopy - Santy Anderson MD Date/Time: 07/25/23 08:56 Surgeon: Santy Anderson MD Pre Op Diagnosis: Diverticulitis of large intestine w/o perf. Patient Data Age: 48 Gender: F Height: 1.68 m Weight: 91 kg Allergies Allergy/AdvReac Type Severity Reaction Status Date / Time No Known Allergies Allergy Verified 07/25/23 13:31 Home Medications Medication Instructions Recorded Confirmed Type bupropion HCl 300 mg 24 hr tablet, 300 mg PO DAILY 05/02/20 07/25/23 History extended release (Wellbutrin XL) duloxetine 20 mg capsule,delayed 40 mg PO HS 05/02/20 07/25/23 History release potassium citrate 15 mEq (1,620 1,620 mg PO BID 05/02/20 07/25/23 History mg) tablet,extended release propranolol 10 mg tablet 10 mg PO QAM 05/02/20 07/25/23 History trazodone 100 mg tablet 100 mg PO HS 05/02/20 07/25/23 History alprazolam 0.5 mg tablet 1 mg PO BID PRN Anxiety 09/15/20 07/25/23 History cholecalciferol (vitamin D3) 125 5,000 unit PO DAILY 09/15/20 07/25/23 History mcg (5,000 unit) tablet (Vitamin D3) cyanocobalamin (vitamin B-12) 1,000 mcg PO DAILY 09/15/20 07/25/23 History 1,000 mcg tablet lubiprostone 24 mcg capsule 24 mcg PO DAILY 11/13/22 07/25/23 History (Amitiza) sumatriptan succinate 6 mg/0.5 mL See Rx Instructions .Route 05/21/23 07/25/23 Rx subcutaneous pen injector .COMPLEX #2 mL dicyclomine 20 mg tablet 20 mg PO TID PRN abdominal pain 05/24/23 07/25/23 Rx #120 tabs metoclopramide HCl 5 mg tablet See Rx Instructions .Route 06/24/23 07/25/23 Rx .COMPLEX #30 tabs pantoprazole 40 mg tablet,delayed See Rx Instructions .Route 06/24/23 07/25/23 Rx release .COMPLEX #60 tabs sucralfate 100 mg/mL oral 1 g PO ACHS PRN REFLUX 07/12/23 07/25/23 History suspension (Carafate) ondansetron HCl 4 mg tablet 4 - 8 mg PO Q8H PRN nausea and 07/22/23 07/25/23 Rx vomiting #20 tabs hydrocodone 5 mg-acetaminophen 325 1 tablet PO Q8H PRN pain #75 tabs 07/24/23 07/25/23 Rx mg tablet Patient hx anesthesia problems: none Family hx anesthesia problems: none Results Review: All pre-operative results and documents have been reviewed as part of the pre-operative evaluation. [facility] Past Medical History Medical History (Reviewed 07/24/23 @ 07:51 by Chrissy Fleming, [facility]) Abdominal pain in female Abnormal serum lipase level Abnormal weight gain Acute cystitis without hematuria Acute diverticulitis Acute non-recurrent pansinusitis Acute shoulder pain Adult idiopathic generalized osteoporosis Age-related osteoporosis with current pathological fracture, unspecified ankle and foot, initial encounter for fracture Anemia Anxiety Arthralgia Arthritis Arthritis of both knees Aspiration into airway Atrial tachycardia Bilateral tinnitus Body mass index (bmi) 39.0-39.9, adult (01/12/19) Bone spur of left foot Chills Chronic migraine Chronic narcotic use Chronic pain syndrome Colon cancer screening Cyst of ovary Decreased appetite Diarrhea Dietary counseling and surveillance (08/25/15) Diverticulitis of large intestine without perforation or abscess Diverticulosis of intestine, part unspecified, without perforation or abscess with bleeding Duodenal ulcer Dysphagia Dysuria Meredith-Danlos syndrome Elevated lipase Epigastric pain Establishing care with new doctor, encounter for Excessive thirst Fatigue Fear of flying Fibromyalgia Gastric ulcer Gastroesophageal reflux disease Generalized abdominal pain Generalized anxiety disorder History of dislocation of knee History of kidney stones Hoarseness Hyperextension deformity of knee Hyperthyroidism Hypokalemia Hypovitaminosis D IBS (irritable bowel syndrome) Immunosuppressed status Impingement syndrome of right shoulder Irregular menses 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 syndrome with constipation 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 diarr
[2023-07-25 13:34] VITALS: BP 139/80; PULSE 105; RESP 16; TEMP 36.2; O2SAT 98
[2023-07-25] MEDS: LACTATED RINGERS 1,000 ML 150 ML IV CONT (13:51)
--- NOTE | 2023-07-25 14:47 | PM.HPGS ---
History of Present Illness History of Present Illness Consent: Risks, benefits, and alternatives have been discussed and questions answered. Patient agrees to proceed with procedure. Chief complaint: Diverticulitis of large intestine w/o perf. Narrative: Madalyn Smith is a 48 year old female with intermittent abdominal pain, previous episode of diverticulitis. Last colonoscopy [address] Arias, diverticulosis, random biopsies of colon and TI normal. Review of Systems Review of Systems: All systems reviewed & are unremarkable except as noted in HPI and below PMFSH Past Medical History Medical History Abdominal pain in female Abnormal serum lipase level Abnormal weight gain Acute cystitis without hematuria Acute diverticulitis Acute non-recurrent pansinusitis Acute shoulder pain Adult idiopathic generalized osteoporosis Age-related osteoporosis with current pathological fracture, unspecified ankle and foot, initial encounter for fracture Anemia Anxiety Arthralgia Arthritis Arthritis of both knees Aspiration into airway Atrial tachycardia Bilateral tinnitus Body mass index (bmi) 39.0-39.9, adult (01/12/19) Bone spur of left foot Chills Chronic migraine Chronic narcotic use Chronic pain syndrome Colon cancer screening Cyst of ovary Decreased appetite Diarrhea Dietary counseling and surveillance (08/25/15) Diverticulitis of large intestine without perforation or abscess Diverticulosis of intestine, part unspecified, without perforation or abscess with bleeding Duodenal ulcer Dysphagia Dysuria Meredith-Danlos syndrome Elevated lipase Epigastric pain Establishing care with new doctor, encounter for Excessive thirst Fatigue Fear of flying Fibromyalgia Gastric ulcer Gastroesophageal reflux disease Generalized abdominal pain Generalized anxiety disorder History of dislocation of knee History of kidney stones Hoarseness Hyperextension deformity of knee Hyperthyroidism Hypokalemia Hypovitaminosis D IBS (irritable bowel syndrome) Immunosuppressed status Impingement syndrome of right shoulder Irregular menses 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 syndrome with constipation 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 diarrhea LLQ pain assisted use of drug Low back pain Low TSH level Luteal cystic ovary disease Microscopic hematuria Migraine, unspecified, not intractable, without status migrainosus Multinodular goiter Muscle weakness of lower extremity Musculoskeletal pain Nausea Nephrolithiasis Nonintractable migraine Osteoarthritis of spine with radiculopathy, lumbar region Osteoporosis Other chronic pain Overweight (11/22/16) Pain in both hands Pain of both hip joints Pain of left heel Pneumonia due to infectious organism Polyuria Prepatellar bursitis of both knees Prepatellar bursitis, left knee Psoriasis PUD (peptic ulcer disease) Rheumatoid arthritis of multiple sites with negative rheumatoid factor Rheumatoid arthritis of unspecified site with involvement of other organs and systems Right lower quadrant abdominal pain Short-term memory loss Swelling Swelling of finger joint of left hand Thyroid nodule Urinary symptom or sign Urinary tract infection without hematuria UTI (urinary tract infection) Weight loss Yeast vaginitis Surgical History Surgical History History of colonoscopy History of knee surgery ANUSHA reconstruction. History of lithotripsy x4. History of tonsillectomy Previous section Family History Family History Mother Patient's mother is in good health Family history of arthritis Father Patient's father is in good health Family history of alcoholism Family history of arthritis Family history of obesity Family history of chronic obstructive pulmonary disease Sibling Patient's sister is in good health Patient's brother is in good health Grand
[2023-07-25 15:10] VITALS: BP 96/55; PULSE 89; RESP 18; O2SAT 98
[2023-07-25 15:20] VITALS: BP 99/54; PULSE 88; RESP 25; O2SAT 100
[2023-07-25 15:30] VITALS: BP 124/76; PULSE 89; RESP 14; O2SAT 100
== END 2023-07-25 16:00 | disposition home or self-care (01) ==
PROVIDERS: PCP Internal Medicine; Visit Provider Internal Medicine Gastroenterology
PROC: 0DJD8ZZ Inspection of Lower Intestinal Tract, Via Natural or Artificial Opening Endoscopic (ICD-10-PCS; CPT 45378; principal; 2023-07-25 14:30)
DX: K57.30 Diverticulosis of large intestine without perforation or abscess without bleeding (principal); D64.9 Anemia, unspecified; F41.9 Anxiety disorder, unspecified; I47.19 Other supraventricular tachycardia; G89.4 Chronic pain syndrome; Q79.60 Ehlers-Danlos syndrome, unspecified; K21.9 Gastro-esophageal reflux disease without esophagitis; E05.90 Thyrotoxicosis, unspecified without thyrotoxic crisis or storm; K58.1 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 syndrome with constipation; G43.909 Migraine, unspecified, not intractable, without status migrainosus; F12.90 Cannabis use, unspecified, uncomplicated; E66.9 Obesity, unspecified; Z68.34 Body mass index [BMI] 34.0-34.9, adult; Z79.85 Long-term (current) use of injectable non-insulin antidiabetic drugs; Z79.891 Long term (current) use of opiate analgesic; Z98.890 Other specified postprocedural states; Z87.891 Personal history of nicotine dependence; Z87.442 Personal history of urinary calculi; Z80.1 Family history of malignant neoplasm of trachea, bronchus and lung
CPT/HCPCS: 45378; J2001; J2704; J7120

== ENCOUNTER 2023-09-17 10:00 | Outpatient (CLI) | payer BC, SELFPAY ==
[2023-09-17 10:40] LABS: Basophils Absolute Auto 0.1 K/mm3 (0.0-0.1); Basophils Percent Auto 1.4 % (0.2-1.2); Eosinophils Absolute Auto 0.2 K/mm3 (0-0.3); Eosinophils Percent Auto 3.1 % (0-4.4); Hematocrit 41.3 % (37.0-47.0); Hemoglobin 12.7 g/dL (12.0-15.0); Immature Granulocyte Absolute 0.06 K/mm3 (0.00-0.031); Immature Granulocyte Percent A 0.8 % (0-0.5); Lymphocytes Absolute Auto 1.82 K/mm3 (0.9-3.2); Lymphocytes Percent Auto 24.6 % (18.3-44.2); Mean Corpuscular HGB Conc 30.8 g/dl (32-36); Mean Corpuscular Hemoglobin 25.3 pg (26-34); Mean Corpuscular Volume 82.4 fl (80-100); Mean Platelet Volume 8.7 fl (7.4-10.4); Monocytes Absolute Auto 0.4 K/mm3 (0.1-0.6); Monocytes Percent Auto 4.9 % (2.6-8.5); Neutrophils Absolute Auto 4.8 K/mm3 (1.3-6.7); Neutrophils Percent Auto 65.2 % (45.5-73.1); Platelet Count Result 408 k/mm3 (150-375); Red Blood Count 5.01 M/mm3 (4.2-5.4); Red Cell Distribution Width 15.2 % (11.5-14.5); White Blood Count 7.4 K/mm3 (4.5-10.0)
[2023-09-17 10:53] LABS: Alanine Aminotransferase 32 U/L (6-35); Albumin Level 4.3 g/dL (3.5-5.1); Alkaline Phosphatase 85 U/L (38-126); Anion Gap 9 mmol/L (4-12); Aspartate Amino Transferase 23 U/L (14-36); Bilirubin,Total 0.5 mg/dL (0.2-1.3); Blood Urea Nitrogen 15 mg/dL (7-17); Calcium 8.9 mg/dL (8.4-10.2); Carbon Dioxide 23 mmol/L (22-30); Chloride 105 mmol/L (98-107); Estimated Glomerular Filt Rate 59; Glucose 116 mg/dL (65-110); Potassium 4.1 mmol/L (3.4-5.0); Sodium 137 mmol/L (137-145)
[2023-09-17 11:23] LABS: Thyroid Stimulating Hormone 0.589 uIU/mL (0.465-4.680)
[2023-09-17 11:26] LABS: Free T4 Free Thyroxine 1.07 ng/mL (0.78-2.19)
[2023-09-19 06:54] LABS: Thyroglobulin 7.3 ng/mL; Thyroglobulin Antibodies <1 IU/mL (< or = 1)
== END 2023-09-17 10:01 | disposition home or self-care (01) ==
LOC: ANHLAB 10:02
PROVIDERS: PCP Internal Medicine; Referring Provider Internal Medicine; Visit Provider Physician Assistant
DX: R79.89 Other specified abnormal findings of blood chemistry (principal); R50.9 Fever, unspecified
CPT/HCPCS: 36415; 80053; 84432; 84439; 84443; 85025; 86800

== ENCOUNTER 2023-09-17 15:14 | Outpatient (CLI) | payer BC, SELFPAY ==
--- NOTE | ~2023-09-17 | XR_ITS ---
EXAMINATION: XR chest 2V 09/17/2023 15:25 INDICATION: Cough. Aspiration. PROCEDURE: 2 view chest COMPARISON: Comparison to multiple prior studies sequentially, with oldest reviewed study dated 11/08. FINDINGS: The lungs are clear. The cardiomediastinal silhouette is within normal limits. There are no pleural effusions. There is no pneumothorax suspected. IMPRESSION: 1: NO ACUTE CARDIOPULMONARY DISEASE. Reviewed, dictated and finalized at [facility].
== END 2023-09-17 15:15 | disposition home or self-care (01) ==
LOC: ANHIMG 15:15
PROVIDERS: PCP Internal Medicine; Visit Provider Internal Medicine
DX: R05.9 Cough, unspecified (principal)
CPT/HCPCS: 71046

== ENCOUNTER 2023-12-29 13:34 | Emergency (ER) | payer BC, SELFPAY ==
--- NOTE | ~2023-12-29 | CT_ITS ---
EXAMINATION: CT abdomen pelvis w con DATE: 12/29/2023 17:21 INDICATION: Left lower quadrant abdominal pain, nausea, diarrhea TECHNIQUE: Computed tomography (CT) of the abdomen and pelvis was performed with 100 CC Omnipaque 350 intravenous contrast. Automated exposure control and iterative reconstruction technique were employe d. Exam dose: 1205.03 mGy-cm total exam DLP. COMPARISON: 06/12/2023 CT abdomen pelvis 08/01/2022 MR abdomen 03/07/2021 MR abdomen examination FINDINGS: The lung bases are clear. Normal heart size. No pericardial or pleural effusion. 2. Hyperenhancing small lesions of the lower right hepatic lobe are noted, present on previous examin ations, likely flash filling hemangiomas or focal nodular hyperplasia. No significant new finding of the liver. The gallbladder is unremarkable. No bile duct or pancreatic duct dilatation. Multiple splenic calcified granulomas. No splenomegaly or splenic mass lesion. No pancreatic mass lesion or calcification. Normal morphology of the adrenal glands. Occasional bilateral small nonobstructing renal calculi and occasional bilateral renal cysts. No uret eral calculus or hydroureteronephrosis. The urinary bladder is unremarkable. Status post hysterectomy. There is an approximately 2.3 cm left ovarian cyst. There is minimal atherosclerotic calcification of the normal caliber abdominal aorta. No intraperiton eal or retroperitoneal or pelvic mass lesion or adenopathy or ascites. Small sliding hiatal hernia. Numerous diverticula of the sigmoid and descending colon, with scattered diverticula of the transvers e and descending colon as well. No CT evidence of diverticulitis. Normal appendix. No bowel obstruction, bowel wall thickening, pneumatosis or intraperitoneal free air. Very small fat-containing umbilical hernia. No suspicious osteolytic or osteoblastic lesions. IMPRESSION: Diverticulosis of left and to a lesser extent right colon; no CT evidence of diverticuli tis Normal appendix Small sliding hiatal hernia Status post hysterectomy 2.3 cm left ovarian cyst Occasional bilateral nonobstructing small renal calculi and bilateral renal cysts Flash filling hemangiomas or focal nodular hyperplasia, right hepatic lobe Reviewed, dictated and finalized at [facility]. Reviewed, dictated and finalized at [facility]. IMPRESSION: Diverticulosis of left and to a lesser extent right colon; no CT e vidence of diverticulitis Normal appendix Small sliding hiatal hernia Status post hysterectomy 2.3 cm left ovarian cyst Occasional bilateral nonobstructing small renal calculi and bilateral renal cys ts Flash filling hemangiomas or focal nodular hyperplasia, right hepatic lobe
--- NOTE | ~2023-12-29 | US_ITS ---
US transvaginal DATE: 12/29/2023 19:20 INDICATION: Left lower quadrant abdominal pain. Left ovarian cyst or torsion TECHNIQUE: Real-time imaging via transabdominal imaging COMPARISON: None FINDINGS: Status post hysterectomy. There is a 3 x 2.9 x 2.1 cm multi-septated left ovarian cyst. No other pelvic mass lesion or abnormal pelvic fluid collection. IMPRESSION: 3 x 2.9 x 2.1 cm multi-septated left ovarian cyst Status post hysterectomy Reviewed, dictated and finalized at [facility]. Reviewed, dictated and finalized at [facility].
[2023-12-29 13:35] VITALS: BP 150/90; PULSE 88; RESP 18; TEMP 36.5; O2SAT 98
[2023-12-29 15:38] VITALS: BP 128/93; PULSE 87; RESP 18; TEMP 36.4; O2SAT 100
--- NOTE | 2023-12-29 15:51 | ED.ABDPAIN ---
HPI - Abdominal Pain General Chief Complaint: Abdominal Pain Stated Complaint: low abd pain Time Seen by Provider: 12/29/23 15:36 Source: patient Mode of arrival: ambulatory Limitations: no limitations History of Present Illness HPI narrative: Patient is a 48 y/o female, with PMH of RA, EDS, fibromyalgia, who presents to the ED with c/o lower abdominal pain. Patient reports pain has been intermittent over the last 1 week, but worsening over the last few days. Worse in LLQ. She is prescribed pain medication at home has been taking this with some relief. Reports history of diverticulitis and states current pain feels similar. Reports nausea, diarrhea, subjective fevers over the last few days. She has not had a bowel movement today. States she had a small amount of bloody mucus in her stool yesterday. Denies urinary complaints. Denies vomiting. Related Data Home Medications Medication Instructions Recorded Confirmed bupropion HCl 300 mg 24 hr tablet, 300 mg PO DAILY 05/02/20 12/05/23 extended release (Wellbutrin XL) duloxetine 20 mg capsule,delayed 40 mg PO HS 05/02/20 12/05/23 release potassium citrate 15 mEq (1,620 1,620 mg PO BID 05/02/20 12/05/23 mg) tablet,extended release propranolol 10 mg tablet 10 mg PO QAM 05/02/20 12/05/23 trazodone 100 mg tablet 100 mg PO HS 05/02/20 12/05/23 alprazolam 0.5 mg tablet 1 mg PO BID PRN Anxiety 09/15/20 12/05/23 cholecalciferol (vitamin D3) 125 5,000 unit PO DAILY 09/15/20 12/05/23 mcg (5,000 unit) tablet (Vitamin D3) cyanocobalamin (vitamin B-12) 1,000 mcg PO DAILY 09/15/20 12/05/23 1,000 mcg tablet Allergies Allergy/AdvReac Type Severity Reaction Status Date / Time No Known Allergies Allergy Verified 12/29/23 15:54 Review of Systems Review of Systems: All systems reviewed & are unremarkable except as noted in HPI. All systems reviewed & are unremarkable except as noted in HPI and below PMFSH Past Medical History Medical History Abdominal pain in female Abnormal serum lipase level Abnormal weight gain Acute cystitis without hematuria Acute diverticulitis Acute non-recurrent pansinusitis Acute shoulder pain Adult idiopathic generalized osteoporosis Age-related osteoporosis with current pathological fracture, unspecified ankle and foot, initial encounter for fracture Anemia Anxiety Arthralgia Arthritis Arthritis of both knees Aspiration into airway Atrial tachycardia Bilateral tinnitus Body mass index (bmi) 39.0-39.9, adult (01/12/19) Bone spur of left foot Chills Chronic migraine Chronic narcotic use Chronic pain syndrome Colon cancer screening Cyst of ovary Decreased appetite Diarrhea Dietary counseling and surveillance (08/25/15) Diverticulitis of large intestine without perforation or abscess Diverticulosis of intestine, part unspecified, without perforation or abscess with bleeding Duodenal ulcer Dysphagia Dysuria Meredith-Danlos syndrome Elevated lipase Epigastric pain Establishing care with new doctor, encounter for Excessive thirst Fatigue Fear of flying Fibromyalgia Gastric ulcer Gastroesophageal reflux disease Generalized abdominal pain Generalized anxiety disorder History of dislocation of knee History of kidney stones Hoarseness Hyperextension deformity of knee Hyperthyroidism Hypokalemia Hypovitaminosis D IBS (irritable bowel syndrome) Immunosuppressed status Impingement syndrome of right shoulder Irregular menses 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 syndrome with constipation 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 diarrhea 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
[2023-12-29 16:02] LABS: BEDSIDEPREGUCG Negative (Negative)
[2023-12-29 16:07] LABS: Add Urine Microscopic? YES; Appearance Urine Clear (Clear); Bacteria Urine 1+ /hpf; Bilirubin Urine Negative (Negative); Blood Urine Negative (Negative); Color Urine Dark Yellow (Yellow); Glucose Urine UA Negative (Negative); Ketones Urine Trace mg/dL (Negative); Leukocyte Esterase Ur Negative LEU/UL (Negative); Nitrate Urine Negative (Negative); Non Pathogenic Casts 0-2; Protein Urine Trace mg/dL (Negative); Specific Grav Ur 1.035 (1.001-1.035); Squamous Epithelial Cell Urine Moderate /hpf (Few); WBC Urine 0-5 /hpf (0-3); pH Urine 5.5 (5.0-9.0)
[2023-12-29] MEDS: MORPHINE SULFATE (*CRX) 4 MG/ML INJ IV PUSH ×2 (16:43→18:49)
[2023-12-29] MEDS: SODIUM CHLORIDE 0.9% IV 1,000 ML 999 ML IV CONT (16:45)
[2023-12-29 16:51] LABS: Basophils Absolute Auto 0.1 K/mm3 (0.0-0.1); Eosinophils Absolute Auto 0.1 K/mm3 (0-0.3); Eosinophils Percent Auto 1.6 % (0-4.4); Hematocrit 37.9 % (37.0-47.0); Immature Granulocyte Absolute 0.04 K/mm3 (0.00-0.031); Immature Granulocyte Percent A 0.5 % (0-0.5); Lymphocytes Absolute Auto 2.34 K/mm3 (0.9-3.2); Lymphocytes Percent Auto 30.5 % (18.3-44.2); Mean Corpuscular HGB Conc 31.7 g/dl (32-36); Mean Corpuscular Hemoglobin 25.7 pg (26-34); Mean Corpuscular Volume 81.2 fl (80-100); Mean Platelet Volume 9.3 fl (7.4-10.4); Monocytes Absolute Auto 0.5 K/mm3 (0.1-0.6); Monocytes Percent Auto 6.5 % (2.6-8.5); Neutrophils Absolute Auto 4.6 K/mm3 (1.3-6.7); Neutrophils Percent Auto 59.9 % (45.5-73.1); Platelet Count Result 265 k/mm3 (150-375); Red Blood Count 4.67 M/mm3 (4.2-5.4); Red Cell Distribution Width 15.9 % (11.5-14.5); White Blood Count 7.7 K/mm3 (4.5-10.0)
[2023-12-29 16:52] VITALS: BP 132/87; PULSE 93; TEMP 36.7; O2SAT 98
[2023-12-29 17:02] LABS: Alanine Aminotransferase 37 U/L (6-35); Albumin Level 4.3 g/dL (3.5-5.1); Alkaline Phosphatase 71 U/L (38-126); Anion Gap 11 mmol/L (4-12); Aspartate Amino Transferase 32 U/L (14-36); Bilirubin,Total 0.5 mg/dL (0.2-1.3); Blood Urea Nitrogen 12 mg/dL (7-17); Calcium 9.1 mg/dL (8.4-10.2); Carbon Dioxide 21 mmol/L (22-30); Chloride 104 mmol/L (98-107); Estimated CRCL calculation 78 ml/min; Estimated Glomerular Filt Rate > 60; Glucose 84 mg/dL (65-110); Lipase 361 U/L (23-300); Potassium 4.3 mmol/L (3.4-5.0); Sodium 136 mmol/L (137-145)
[2023-12-29 20:26] VITALS: BP 145/84; PULSE 98; TEMP 36.3; O2SAT 100
[2023-12-29] MEDS: KETOROLAC 30 MG/ML VIAL (*BKC) IV PUSH (20:33)
== END 2023-12-29 20:42 | disposition home or self-care (01) ==
PROVIDERS: Student in an Organized Health Care Education/Training Program; Emergency Provider Physician Assistant; PCP Internal Medicine
DX: N83.202 Unspecified ovarian cyst, left side (principal); R10.32 Left lower quadrant pain; K57.90 Diverticulosis of intestine, part unspecified, without perforation or abscess without bleeding; D64.9 Anemia, unspecified; F41.9 Anxiety disorder, unspecified; M19.90 Unspecified osteoarthritis, unspecified site; M79.7 Fibromyalgia; K21.9 Gastro-esophageal reflux disease without esophagitis
CPT/HCPCS: 36415; 74177; 76830; 80053; 81001; 81025; 83690; 85025; 96361; 96374; 96375; 99284; J1885; J2270; J7030; Q9967

== ENCOUNTER 2024-01-02 02:01 | Day surgery (SDC) | payer BC, SELFPAY ==
[2024-01-01 08:29] VITALS: BMI 34.7
--- NOTE | 2024-01-01 08:30 | PC.NURSE ---
Report to the Outpatient Waiting Room, entrance under the green pavilion located off [facility], at time _0800_ on date _[id number]_. Planned Procedure Time: _1000_.? Time changes happen often and if your time is changed the preop area will call you the afternoon before. - You and your visitor will be asked to self-screen and do not enter if you have any COVID symptoms. Please call surgeon if you need to reschedule. - A mask is optional within the hospital at this time. Patients may have clear liquids (water, carbonated beverages, clear teas, apple juice) until 3 hours prior to surgery with a maximum of 20 ounces. - No food from midnight until time of surgery and no smoking Take only the following medications with a SIP of water on the morning of surgery: ___Bupropion, Propanolol and if needed Alprazolam and or pain medication. DO NOT STOP ANY OF YOUR OTHER PRESCRIPTION MEDICATIONS PRIOR TO SURGERY EXCEPT THE FOLLOWING Medications to discontinue per physician Don't take Vitamins today. Date to take last dose Please no make-up, nail [place], hairspray, perfume, deodorant, or body powder the day of surgery.? No jewelry (including any body piercings) or valuables the day of surgery, leave them at home.? Please take a shower or bath the night before, or the morning of, surgery with an antibacterial soap.? Wear comfortable, loose fitting clothing.? - Jewelry must be removed prior to entering the operating room.? Rings and piercings that are not removed may be cut off. - The hospital will not accept responsibility for valuables.? - Please leave all valuables, including medications, at home the day of surgery. If you are going home after surgery, a licensed national flatbed truck driver must drive you home.? - NO public transportation without another adult if you receive anesthesia. - We recommend that an adult stay with you for 24 hours following discharge. - We also recommend that you do not drive, make important decision, drink alcoholic beverages, or take any drugs that were not prescribed by your health care provider for at least 24 hours after your discharge time. Follow any additional instructions given to you from your surgeon. Telephone instructions given to __Ann__and asked if any additional questions and then verbalized understanding. Patient advised to call surgeon office or pre surgery nurse liaison [phone] if any additional questions.
--- NOTE | 2024-01-01 16:06 | PM.IMHP ---
H&P: HPI History of Present Illness Date/Time: 01/01/24 16:06 Chief Complaint: Pelvic pain with left complex ovarian cyst Narrative: 48-year-old female with history of Meredith-Danlos rheumatoid arthritis and ABD was seen in the ER complaining pelvic pain complex left ovarian cyst was seen. She is status post hysterectomy and had been doing well she will undergo laparoscopic left salpingo-oophorectomy risks and benefits reviewed including not exclusive of , aspiration bleeding transfusion perforation to bowel bladder ureters, or other internal organs with need for open laparotomy. She received the [employer] handout entitled laparoscopy. She had all questions answered. She has to proceed PMFSH Past Medical History Medical History Abdominal pain in female Abnormal serum lipase level Abnormal weight gain Acute cystitis without hematuria Acute diverticulitis Acute non-recurrent pansinusitis Acute shoulder pain Adult idiopathic generalized osteoporosis Age-related osteoporosis with current pathological fracture, unspecified ankle and foot, initial encounter for fracture Anemia Anxiety Arthralgia Arthritis Arthritis of both knees Aspiration into airway Atrial tachycardia Bilateral tinnitus Body mass index (bmi) 39.0-39.9, adult (01/12/19) Bone spur of left foot Chills Chronic migraine Chronic narcotic use Chronic pain syndrome Colon cancer screening Cyst of ovary Decreased appetite Diarrhea Dietary counseling and surveillance (08/25/15) Diverticulitis of large intestine without perforation or abscess Diverticulosis of intestine, part unspecified, without perforation or abscess with bleeding Duodenal ulcer Dysphagia Dysuria Meredith-Danlos syndrome Elevated lipase Epigastric pain Establishing care with new doctor, encounter for Excessive thirst Fatigue Fear of flying Fibromyalgia Gastric ulcer Gastroesophageal reflux disease Generalized abdominal pain Generalized anxiety disorder History of dislocation of knee History of kidney stones Hoarseness Hyperextension deformity of knee Hyperthyroidism Hypokalemia Hypovitaminosis D IBS (irritable bowel syndrome) Immunosuppressed status Impingement syndrome of right shoulder Irregular menses 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 syndrome with constipation 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 diarrhea LLQ pain FDC use of drug Low back pain Low TSH level Luteal cystic ovary disease Microscopic hematuria Migraine, unspecified, not intractable, without status migrainosus Multinodular goiter Muscle weakness of lower extremity Musculoskeletal pain Nausea Nephrolithiasis Nonintractable migraine Osteoarthritis of spine with radiculopathy, lumbar region Osteoporosis Other chronic pain Overweight (11/22/16) Pain in both hands Pain of both hip joints Pain of left heel Pneumonia due to infectious organism Polyuria Prepatellar bursitis of both knees Prepatellar bursitis, left knee Psoriasis PUD (peptic ulcer disease) Rheumatoid arthritis of multiple sites with negative rheumatoid factor Rheumatoid arthritis of unspecified site with involvement of other organs and systems Right lower quadrant abdominal pain Short-term memory loss Swelling Swelling of finger joint of left hand Thyroid nodule Urinary symptom or sign Urinary tract infection without hematuria UTI (urinary tract infection) Weight loss Yeast vaginitis Surgical History Surgical History History of colonoscopy History of knee surgery ANUSHA reconstruction. History of lithotripsy x4. History of tonsillectomy Previous section Family History Family History Mother Patient's mother is in good health Family history of arthritis Father Patient's father is in good health Family history of alcoholism Family history of arthritis Family history of obesity
[2024-01-02] VITALS (9 sets, daily range): BP systolic 110–158; BP diastolic 58–86; PULSE 71–91; RESP 14–18; TEMP 36.5–36.6; O2SAT 93–100
--- NOTE | 2024-01-02 05:43 | WPDHPUPDATE1 ---
History and Physical Update Update Date/Time: 01/02/24 05:43 History and Physical has been reviewed, including an updated exam of the patient. There are NO changes in the patient's condition. Risks, benefits, and alternatives have been discussed and questions answered. Patient agrees to proceed with procedure.
[2024-01-02] MEDS: LACTATED RINGERS 1,000 ML 30 ML IV CONT ×2 (08:55→10:59)
[2024-01-02] MEDS: ACETAMINOPHEN 500 MG TABLET 1000 MG PO (08:55)
[2024-01-02] MEDS: KETOROLAC 15 MG/ML VIAL (*BKC) IV PUSH (09:00)
--- NOTE | 2024-01-02 09:38 | WPDANESEPPF ---
Anes - Initial Pre Proc Eval Procedure: Operation Date: 01/02/24 10:00 Proposed Procedures p Laparoscopic Left Salpingo Oophorectomy - Freedom Licona MD Date/Time: 01/02/24 09:38 Surgeon: Freedom Licona MD Pre Op Diagnosis: left ovarian cyst, pain Patient Data Age: 48 Gender: F Height: 1.68 m Weight: 100 kg Last Vital Signs Temp 36.6 C 01/02/24 08:27 Pulse 91 01/02/24 08:27 Resp 18 01/02/24 08:27 BP 158/86 H 01/02/24 08:27 Pulse Ox 99 01/02/24 08:27 O2 Del Method Room Air 01/02/24 08:27 Allergies Allergy/AdvReac Type Severity Reaction Status Date / Time No Known Allergies Allergy Verified 01/02/24 08:24 Home Medications Medication Instructions Recorded Confirmed Type bupropion HCl 300 mg 24 hr tablet, 300 mg PO DAILY 05/02/20 01/02/24 History extended release (Wellbutrin XL) duloxetine 20 mg capsule,delayed 40 mg PO HS 05/02/20 01/02/24 History release potassium citrate 15 mEq (1,620 1,620 mg PO BID 05/02/20 01/02/24 History mg) tablet,extended release propranolol 10 mg tablet 10 mg PO QAM 05/02/20 01/02/24 History trazodone 100 mg tablet 100 mg PO HS 05/02/20 01/02/24 History alprazolam 0.5 mg tablet 1 mg PO BID PRN Anxiety 09/15/20 01/02/24 History cholecalciferol (vitamin D3) 125 5,000 unit PO DAILY 09/15/20 01/02/24 History mcg (5,000 unit) tablet (Vitamin D3) cyanocobalamin (vitamin B-12) 1,000 mcg PO DAILY 09/15/20 01/02/24 History 1,000 mcg tablet ondansetron HCl 4 mg tablet 4 - 8 mg PO Q8H PRN nausea and 07/22/23 01/02/24 Rx vomiting #20 tabs dicyclomine 20 mg tablet 20 mg PO TID PRN abdominal pain 09/19/23 01/02/24 Rx #120 tabs sumatriptan succinate 6 mg/0.5 mL See Rx Instructions .Route 09/19/23 01/02/24 Rx subcutaneous pen injector .COMPLEX #2 mL metoclopramide HCl 5 mg tablet See Rx Instructions .Route 10/21/23 01/02/24 Rx .COMPLEX #30 tabs sucralfate 1 gram tablet 1 g PO ACHS #120 tabs 12/10/23 01/02/24 Rx hydrocodone 5 mg-acetaminophen 325 1 tablet PO Q8H PRN pain #75 tabs 12/19/23 01/02/24 Rx mg tablet pantoprazole 40 mg tablet,delayed See Rx Instructions .Route 12/20/23 01/02/24 Rx release .COMPLEX #60 tabs tramadol 50 mg tablet 50 mg PO Q6H PRN pain #10 tabs 12/29/23 01/02/24 Rx hydrocodone 5 mg-acetaminophen 300 1 tablet PO Q4H PRN pain #20 tabs 01/02/24 Rx mg tablet Laboratory Tests 01/02/24 08:38 Blood Type A Positive Antibody Screen Pending Patient hx anesthesia problems: none Family hx anesthesia problems: none Results Review: All pre-operative results and documents have been reviewed as part of the pre-operative evaluation. [facility] Past Medical History Medical History Abdominal pain in female Abnormal serum lipase level Abnormal weight gain Acute cystitis without hematuria Acute diverticulitis Acute non-recurrent pansinusitis Acute shoulder pain Adult idiopathic generalized osteoporosis Age-related osteoporosis with current pathological fracture, unspecified ankle and foot, initial encounter for fracture Anemia Anxiety Arthralgia Arthritis Arthritis of both knees Aspiration into airway Atrial tachycardia Bilateral tinnitus Body mass index (bmi) 39.0-39.9, adult (01/12/19) Bone spur of left foot Chills Chronic migraine Chronic narcotic use Chronic pain syndrome Colon cancer screening Cyst of ovary Decreased appetite Diarrhea Dietary counseling and surveillance (08/25/15) Diverticulitis of large intestine without perforation or abscess Diverticulosis of intestine, part unspecified, without perforation or abscess with bleeding Duodenal ulcer Dysphagia Dysuria Meredith-Danlos syndrome Elevated lipase Epigastric pain Establishing care with new doctor, encounter for Excessive thirst Fatigue Fear of flying Fibromyalgia Gastric ulcer Gastroesophageal reflux disease Generalized abdominal pain Generaliz
[2024-01-02] MEDS: SCOPOLAMINE 1 MG PATCH 1 PATCH TRANSDERM (09:52)
--- NOTE | 2024-01-02 10:20 | W.PM.PROC2 ---
Procedure Note - Detailed Date of Procedure 01/02/24 Pre-op Diagnosis left ovarian cyst, pain Post-op Diagnosis Same Procedure Performed Laparoscopic left oophorectomy Surgeon Freedom Licona MD Anesthesia General Indications this is a 48-year-old female with severe pelvic pain and left ovarian cyst Findings absent uterus and tubes normal-appearing right ovary complex left ovarian cyst Description of Procedure patient was prepped and draped in the normal sterile fashion placed in the dorsal lithotomy position. Under excellent general tracheal anesthesia weighted speculum placed in posterior fornix vagina. Sponge stick placed in the bladder draining clear urine. The weighted speculum was removed and the gloves were changed. A supraumbilical incision made the Veress needle passed in the abdomen. Abdomen filled with CO2 gas [id number]. The 5mm trocar advanced under direct visualization assuring no injury. Patient placed in Trendelenburg and a suprapubic incision made. 5mm trocar advanced in the suprapubic area under direct visualization assuring no injury. A left lower quadrant incision made 8mm trocar advanced under direct visualization assuring no injury. The complex left ovarian cyst was noted the infundibulopelvic structure was skeletonized clamped, burned, cut this was then placed in Endo-Catch and removed through the left lower quadrant. The appendix liver etc appeared grossly within normal limits and hemostasis was assured. The gas was removed from the abdomen. The trocars removed the incisions closed with 4 Monocryl and glue. Instruments removed from the vagina the patient was awakened. She went to recovery in satisfactory condition. All sponge, needle, instrument counts were correct. There were no immediate complications Estimated Blood Loss 5 Drains No Packing No Pathology Yes Complications No immediate complications Condition Stable Disposition PACU
[2024-01-02] MEDS: fentaNYL CITRATE INJ (*CRX) 100 MCG/2 ML VIAL 25 MCG IV PUSH ×8 (10:45→11:19)
[2024-01-02] MEDS: oxyCODONE HCL (*CRX) 5 MG TAB IR PO (11:45)
[2024-01-02] MEDS: HYDROmorphone HCL INJ (*CRX) 1 MG/ML SYR IV PUSH (12:29)
== END 2024-01-02 12:55 | disposition home or self-care (01) ==
PROVIDERS: PCP Internal Medicine; Visit Provider Obstetrics & Gynecology
PROC: (CPT 49320; principal; 2024-01-02 10:00)
DX: D27.1 Benign neoplasm of left ovary (principal); N83.292 Other ovarian cyst, left side; M81.0 Age-related osteoporosis without current pathological fracture; G89.4 Chronic pain syndrome; Q79.60 Ehlers-Danlos syndrome, unspecified; M79.7 Fibromyalgia; F41.1 Generalized anxiety disorder; E55.9 Vitamin D deficiency, unspecified; M06.09 Rheumatoid arthritis without rheumatoid factor, multiple sites; Z87.891 Personal history of nicotine dependence; E66.9 Obesity, unspecified; Z68.35 Body mass index [BMI] 35.0-35.9, adult; Z79.891 Long term (current) use of opiate analgesic
CPT/HCPCS: 58661; 36415; 86850; 86900; 86901; 88305; A9270; J1100; J1170; J1885; J2405; J2704; J3010; J7030; J7120

== ENCOUNTER 2024-01-04 10:38 | Emergency (ER) | payer BC, SELFPAY ==
--- NOTE | ~2024-01-04 | XR_ITS ---
EXAMINATION: XR chest 2V DATE: 01/04/2024 12:46 INDICATION: Cough 2 days post ovarian surgery TECHNIQUE: PA and lateral views of the chest were obtained. COMPARISON: Chest radiograph dated 09/17/2023 FINDINGS: The lungs are clear with no focal airspace opacities, pulmonary edema, pleural effusion or pneumothor ax. The cardiomediastinal silhouette is normal. Mild thoracic spondylosis. IMPRESSION: 1. No acute cardiopulmonary disease. Reviewed, dictated and finalized at location A.
--- NOTE | ~2024-01-04 | CT_ITS ---
EXAMINATION: CT abdomen pelvis w con DATE: 01/04/2024 12:38 INDICATION: Postoperative abdominal pain post laparoscopic left oophorectomy 2 days prior. TECHNIQUE: Computed tomography (CT) of the abdomen and pelvis was performed with 100 mL Omnipaque-350 intravenous contrast. Automated exposure control and iterative reconstruction technique were employe d. The dose-length product was 1331.09 mGy-cm. COMPARISON: 12/29/2023 FINDINGS: Lung bases are clear. Heart size is normal. No pericardial or pleural effusion. Very small sliding-ty pe hiatal hernia. A couple likely benign subtle enhancing nodules at the inferior right hepatic lobe without significant change since at least 02/26/2021 most likely flash filling hemangiomas with differ ential including focal nodular hyperplasia. The gallbladder, pancreas, bilateral adrenal glands are n ormal. Multiple splenic calcific lesions consistent with old granulomatous disease. Gas-filled duoden al diverticulum posterior to the head of the pancreas. Bilateral nonobstructing nephrolithiasis with approximately 10 stones in the right kidney measuring up to 4 mm and a couple 2 mm stones in the left kidney. 2.4 similar left renal cyst. Mild scattered diverticulosis without adjacent from trace stran ding to suggest diverticular colitis. Small bowel and appendix are normal. Partially decompressed hero dder is normal. The uterus is not identified and has likely been surgically resected. And bilateral a dnexa are unremarkable. No abscess or free intraperitoneal gas or fluid. No pathologically enlarged a bdominal or pelvic lymphadenopathy. Couple subtle tracts of stranding in the anterior abdominal wall fat likely along the tracts of the reported recent laparoscopic surgery. Bones are unremarkable. IMPRESSION: 1. No acute intra-abdominal/pelvic process. 2. Bilateral nonobstructing nephrolithiasis. Reviewed, dictated and finalized at location A.
--- NOTE | 2024-01-04 11:49 | ED.ABDPAIN ---
HPI - Abdominal Pain General Chief Complaint: Abdominal Pain Stated Complaint: abd pain post sx Time Seen by Provider: 01/04/24 11:10 Source: patient and family Mode of arrival: ambulatory Limitations: no limitations History of Present Illness HPI narrative: Patient presents with complaint of abdominal pain and shortness of breath. She is postop day 2 from a laparoscopic left oophorectomy with Dr Danielson on 01/02/2024. She has been taking [place] 5 mg tablets at home but states that these are not working. Her last bowel movement was yesterday and notably without constipation. In fact it was diarrheal. She is passing flatus although she states this is painful. She denies any vaginal bleeding. She is also concerned she might have developed a pneumonia after the operation as she has been coughing and it was mildly productive of yellow sputum today. She states she is especially worried because she has an issue with aspiration due to a problem at her lower esophageal sphincter. No fevers. The coughing made her abdominal pain worse. She has been nauseated but without vomiting. She does have and answer trauma at home but she did not take any today. She had a hysterectomy last year. She is not on anticoagulation. Her last oral intake was an egg sandwich at 9:00 a.m.. Related Data Home Medications Medication Instructions Recorded Confirmed bupropion HCl 300 mg 24 hr tablet, 300 mg PO DAILY 05/02/20 01/02/24 extended release (Wellbutrin XL) duloxetine 20 mg capsule,delayed 40 mg PO HS 05/02/20 01/02/24 release potassium citrate 15 mEq (1,620 1,620 mg PO BID 05/02/20 01/02/24 mg) tablet,extended release propranolol 10 mg tablet 10 mg PO QAM 05/02/20 01/02/24 trazodone 100 mg tablet 100 mg PO HS 05/02/20 01/02/24 alprazolam 0.5 mg tablet 1 mg PO BID PRN Anxiety 09/15/20 01/02/24 cholecalciferol (vitamin D3) 125 5,000 unit PO DAILY 09/15/20 01/02/24 mcg (5,000 unit) tablet (Vitamin D3) cyanocobalamin (vitamin B-12) 1,000 mcg PO DAILY 09/15/20 01/02/24 1,000 mcg tablet Allergies Allergy/AdvReac Type Severity Reaction Status Date / Time No Known Allergies Allergy Verified 01/02/24 08:24 [facility] Past Medical History Medical History Abdominal pain in female Abnormal serum lipase level Abnormal weight gain Acute cystitis without hematuria Acute diverticulitis Acute non-recurrent pansinusitis Acute shoulder pain Adult idiopathic generalized osteoporosis Age-related osteoporosis with current pathological fracture, unspecified ankle and foot, initial encounter for fracture Anemia Anxiety Arthralgia Arthritis Arthritis of both knees Aspiration into airway Atrial tachycardia Bilateral tinnitus Body mass index (bmi) 39.0-39.9, adult (01/12/19) Bone spur of left foot Chills Chronic migraine Chronic narcotic use Chronic pain syndrome Colon cancer screening Cyst of ovary Decreased appetite Diarrhea Dietary counseling and surveillance (08/25/15) Diverticulitis of large intestine without perforation or abscess Diverticulosis of intestine, part unspecified, without perforation or abscess with bleeding Duodenal ulcer Dysphagia Dysuria Meredith-Danlos syndrome Elevated lipase Epigastric pain Establishing care with new doctor, encounter for Excessive thirst Fatigue Fear of flying Fibromyalgia Gastric ulcer Gastroesophageal reflux disease Generalized abdominal pain Generalized anxiety disorder History of dislocation of knee History of kidney stones Hoarseness Hyperextension deformity of knee Hyperthyroidism Hypokalemia Hypovitaminosis D IBS (irritable bowel syndrome) Immunosuppressed status Impingement syndrome of right shoulder Irregular menses 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 syndrome with constipation 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 diarrhea LLQ pain 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
[2024-01-04 12:05] VITALS: BP 135/80; PULSE 81; RESP 18; TEMP 36.7; O2SAT 97
[2024-01-04 12:12] LABS: Basophils Absolute Auto 0.1 K/mm3 (0.0-0.1); Basophils Percent Auto 1.4 % (0.2-1.2); Eosinophils Absolute Auto 0.2 K/mm3 (0-0.3); Eosinophils Percent Auto 2.9 % (0-4.4); Hematocrit 35.3 % (37.0-47.0); Immature Granulocyte Absolute 0.05 K/mm3 (0.00-0.031); Immature Granulocyte Percent A 0.8 % (0-0.5); Lymphocytes Absolute Auto 2.51 K/mm3 (0.9-3.2); Lymphocytes Percent Auto 38.6 % (18.3-44.2); Mean Corpuscular HGB Conc 31.2 g/dl (32-36); Mean Corpuscular Volume 83.5 fl (80-100); Mean Platelet Volume 8.9 fl (7.4-10.4); Monocytes Absolute Auto 0.4 K/mm3 (0.1-0.6); Neutrophils Absolute Auto 3.3 K/mm3 (1.3-6.7); Neutrophils Percent Auto 50.3 % (45.5-73.1); Platelet Count Result 320 k/mm3 (150-375); Red Blood Count 4.23 M/mm3 (4.2-5.4); Red Cell Distribution Width 15.9 % (11.5-14.5); White Blood Count 6.5 K/mm3 (4.5-10.0)
[2024-01-04 12:20] LABS: BEDSIDEPREGUCG Negative (Negative)
[2024-01-04 12:21] LABS: Alanine Aminotransferase 48 U/L (6-35); Albumin Level 3.7 g/dL (3.5-5.1); Alkaline Phosphatase 69 U/L (38-126); Anion Gap 6 mmol/L (4-12); Aspartate Amino Transferase 36 U/L (14-36); Bilirubin,Total 0.2 mg/dL (0.2-1.3); Blood Urea Nitrogen 13 mg/dL (7-17); Calcium 8.3 mg/dL (8.4-10.2); Carbon Dioxide 29 mmol/L (22-30); Chloride 99 mmol/L (98-107); Estimated Glomerular Filt Rate 59; Glucose 82 mg/dL (65-110); Lactic Acid Reflex 1.2 mmol/L (0.7-2.0); Lipase 171 U/L (23-300); Potassium 3.5 mmol/L (3.4-5.0); Sodium 134 mmol/L (137-145)
[2024-01-04 12:23] LABS: INR 0.8
[2024-01-04] MEDS: HYDROmorphone HCL INJ (*CRX) 1 MG/ML SYR 0.5 MG IV PUSH (12:23)
[2024-01-04] MEDS: ONDANSETRON INJ 4 MG/2 ML VIAL IV PUSH (12:23)
[2024-01-04 12:24] LABS: Partial Thromboplastin Time 25.3 Seconds (22.3-36.8)
[2024-01-04] MEDS: SODIUM CHLORIDE 0.9% IV 1,000 ML 999 ML IV CONT (12:24)
[2024-01-04 12:34] LABS: Add Urine Microscopic? YES; Appearance Urine Clear (Clear); Bacteria Urine Rare /hpf; Bilirubin Urine Negative (Negative); Blood Urine Negative (Negative); Color Urine Yellow (Yellow); Glucose Urine UA Negative (Negative); Ketones Urine Trace mg/dL (Negative); Leukocyte Esterase Ur Trace LEU/UL (Negative); Nitrate Urine Negative (Negative); Non Pathogenic Casts 0-2; Protein Urine Trace mg/dL (Negative); RBC Urine 0-2 /hpf (0-2); Specific Grav Ur 1.022 (1.001-1.035); Squamous Epithelial Cell Urine Moderate /hpf (Few); WBC Urine 0-5 /hpf (0-3)
[2024-01-04 12:49] LABS: Influenza A QL RT-PCR Negative (Negative); Influenza B QL RT-PCR Negative (Negative); RSV RNA, RT-PCR Negative (Negative); SARS-CoV-2 RNA PCR Negative (Negative)
[2024-01-04] MEDS: KETOROLAC 30 MG/ML VIAL (*BKC) 15 MG IM (13:31)
[2024-01-04 14:09] VITALS: BP 118/73; PULSE 82; RESP 16; TEMP 36.6; O2SAT 100
== END 2024-01-04 14:10 | disposition home or self-care (01) ==
PROVIDERS: Emergency Provider Student in an Organized Health Care Education/Training Program; PCP Internal Medicine
DX: G89.18 Other acute postprocedural pain (principal); R10.9 Unspecified abdominal pain; D64.9 Anemia, unspecified; R74.01 Elevation of levels of liver transaminase levels; E87.1 Hypo-osmolality and hyponatremia; R06.02 Shortness of breath; Z20.822 Contact with and (suspected) exposure to COVID-19; E05.90 Thyrotoxicosis, unspecified without thyrotoxic crisis or storm; E55.9 Vitamin D deficiency, unspecified; K58.9 Irritable bowel syndrome, unspecified; G89.4 Chronic pain syndrome; M17.0 Bilateral primary osteoarthritis of knee; M81.8 Other osteoporosis without current pathological fracture; M79.7 Fibromyalgia; M06.9 Rheumatoid arthritis, unspecified; M47.26 Other spondylosis with radiculopathy, lumbar region; Q79.60 Ehlers-Danlos syndrome, unspecified; Z87.01 Personal history of pneumonia (recurrent); Z87.440 Personal history of urinary (tract) infections; Z87.442 Personal history of urinary calculi; Z87.891 Personal history of nicotine dependence; Z90.710 Acquired absence of both cervix and uterus; Z79.899 Other long term (current) drug therapy; N20.0 Calculus of kidney
CPT/HCPCS: 36415; 71046; 74177; 80053; 81001; 81025; 83605; 83690; 85025; 85610; 85730; 87637; 96361; 96372; 96374; 96375; 99284; J1170; J1885; J2405; J7030; Q9967

== ENCOUNTER 2024-04-21 10:53 | Outpatient (CLI) | payer BC, SELFPAY ==
--- NOTE | ~2024-04-21 | XR_ITS ---
Clinical Indication: Reflux disease PA and lateral views of the chest: Comparison: 01/04/2024 Findings: The lungs are clear, without evidence of focal consolidation or pleural effusion. Cardiome diastinal silhouette is within normal limits. Bones and soft tissues are unremarkable. Impression: Normal chest. Reviewed, dictated and finalized at location . TRANSITION MANAGER Impression: Normal chest.
[2024-04-21 11:28] LABS: Hematocrit 36.4 % (37.0-47.0); Hemoglobin 11.4 g/dL (12.0-15.0); Mean Corpuscular HGB Conc 31.3 g/dl (32-36); Mean Corpuscular Hemoglobin 25.6 pg (26-34); Mean Corpuscular Volume 81.8 fl (80-100); Platelet Count Result 313 k/mm3 (150-375); Red Blood Count 4.45 M/mm3 (4.2-5.4); White Blood Count 7.1 K/mm3 (4.5-10.0)
[2024-04-21 11:38] LABS: Alanine Aminotransferase 45 U/L (6-35); Albumin Level 4.1 g/dL (3.5-5.1); Alkaline Phosphatase 90 U/L (38-126); Anion Gap 6 mmol/L (4-12); Aspartate Amino Transferase 34 U/L (14-36); Bilirubin,Total 0.4 mg/dL (0.2-1.3); Blood Urea Nitrogen 14 mg/dL (7-17); Calcium 8.9 mg/dL (8.4-10.2); Carbon Dioxide 24 mmol/L (22-30); Chloride 109 mmol/L (98-107); Estimated Glomerular Filt Rate > 60; Glucose 98 mg/dL (65-110); Lipase 316 U/L (23-300); Potassium 4.1 mmol/L (3.4-5.0); Sodium 139 mmol/L (137-145)
== END 2024-04-21 10:54 | disposition home or self-care (01) ==
LOC: ANHLAB 10:55
PROVIDERS: PCP Internal Medicine; Visit Provider Nurse Practitioner
DX: K21.9 Gastro-esophageal reflux disease without esophagitis (principal); T17.908A Unspecified foreign body in respiratory tract, part unspecified causing other injury, initial encounter; R05.2 Subacute cough
CPT/HCPCS: 36415; 71046; 80053; 83690; 85027

== ENCOUNTER 2024-04-22 22:38 | Emergency (ER) | payer BC, SELFPAY ==
--- NOTE | ~2024-04-22 | CT_ITS ---
Clinical Indication: Hypoxia CT Scan of the Chest with Contrast: Technique: Contiguous sections were acquired throughout the chest after intravenous administration of 100 cc of Omnipaque 350. Dose reduction technique was used on this scan by utilizing automated expos ure control and iterative reconstruction technique. The dose-length product (DLP) was 741.09 mGy-cm. COMPARISON: 02/16/2022 Findings: Minimally prominent right hilar lymph nodes are present. No other lymphadenopathy. There is no fillin g defect in the pulmonary arterial tree to suggest pulmonary embolus. There is no evidence of aortic dissection or aneurysm. There is no evidence of pleural or pericardial effusion. The lungs are clear. No pulmonary nodules or infiltrates are noted. Images through the upper abdomen reveal no abnormalities. Impression: No evidence of pulmonary embolus, aortic dissection, or aortic aneurysm. Clear lungs. Minimally prominent right hilar lymph nodes, nonspecific. Reviewed, dictated and finalized at [facility]. CLIENT BANKING SERVICES CLERK Impression: No evidence of pulmonary embolus, aortic dissection, or aortic aneurysm. Clear lungs. Minimally prominent right hilar lymph nodes, nonspecific.
--- NOTE | ~2024-04-22 | XR_ITS ---
Portable chest x-ray Comparison: 04/21/2024 Clinical History: Aspiration Findings: Lungs are clear, without focal consolidation or pleural effusion. Cardiomediastinal silho uette is stable. Bones and soft tissues are unremarkable. Impression: Clear lungs. Reviewed, dictated and finalized at location . CTOR HUMAN SERVICES Impression: Clear lungs.
[2024-04-22 22:59] VITALS: BP 147/87; PULSE 112; RESP 20; TEMP 36.3; O2SAT 98
--- NOTE | 2024-04-23 01:01 | ECG_ITS ---
Test Date: 2024-04-23 01:10:29 Measurements Intervals Roberts Rate: 97 P: 36 HI: 150 QRS: 41 QRSD: 90 T: 38 QT: 353 QTc: 450 Interpretive Statements SINUS RHYTHM No previous ECG available for comparison Electronically Signed On 04-27-2024 11:16:52 GRAIN TRIMMER by Ayush Salter M.D.
[2024-04-23] MEDS: HYDROmorphone HCL INJ (*CRX) 1 MG/ML SYR 0.5 MG IV PUSH ×2 (01:23→03:55)
[2024-04-23] MEDS: KETOROLAC 15 MG/ML VIAL (*BKC) IV PUSH (01:23)
[2024-04-23] MEDS: SODIUM CHLORIDE 0.9% IV 1,000 ML 999 ML IV CONT (01:23)
[2024-04-23 01:59] LABS: Basophils Absolute Auto 0.1 K/mm3 (0.0-0.1); Basophils Percent Auto 0.6 % (0.2-1.2); Eosinophils Absolute Auto 0.3 K/mm3 (0-0.3); Eosinophils Percent Auto 2.2 % (0-4.4); Hematocrit 33.7 % (37.0-47.0); Hemoglobin 10.4 g/dL (12.0-15.0); Immature Granulocyte Absolute 0.06 K/mm3 (0.00-0.031); Immature Granulocyte Percent A 0.5 % (0-0.5); Lymphocytes Percent Auto 20.8 % (18.3-44.2); Mean Corpuscular HGB Conc 30.9 g/dl (32-36); Mean Corpuscular Hemoglobin 25.1 pg (26-34); Mean Corpuscular Volume 81.4 fl (80-100); Mean Platelet Volume 9.2 fl (7.4-10.4); Monocytes Absolute Auto 0.4 K/mm3 (0.1-0.6); Monocytes Percent Auto 3.7 % (2.6-8.5); Neutrophils Absolute Auto 8.7 K/mm3 (1.3-6.7); Neutrophils Percent Auto 72.2 % (45.5-73.1); Platelet Count Result 289 k/mm3 (150-375); Red Blood Count 4.14 M/mm3 (4.2-5.4); Red Cell Distribution Width 15.2 % (11.5-14.5)
[2024-04-23 02:10] LABS: Alanine Aminotransferase 37 U/L (6-35); Albumin Level 3.8 g/dL (3.5-5.1); Alkaline Phosphatase 91 U/L (38-126); Anion Gap 2 mmol/L (4-12); Aspartate Amino Transferase 32 U/L (14-36); Bilirubin,Total 0.6 mg/dL (0.2-1.3); Blood Urea Nitrogen 11 mg/dL (7-17); Calcium 8.7 mg/dL (8.4-10.2); Carbon Dioxide 28 mmol/L (22-30); Chloride 105 mmol/L (98-107); Estimated Glomerular Filt Rate > 60; Glucose 86 mg/dL (65-110); Lipase 304 U/L (23-300); Potassium 3.9 mmol/L (3.4-5.0); Sodium 135 mmol/L (137-145)
[2024-04-23 02:15] LABS: INR 0.9; Prothrombin Time 12.4 Seconds (11.1-14.7)
[2024-04-23 02:16] LABS: Partial Thromboplastin Time 29.1 Seconds (22.3-36.8)
[2024-04-23 02:21] LABS: NT Pro B Type Natriuretic Pept 142 pg/mL (19.9-100); Troponin I < 0.012 ng/mL (0.000-0.034)
[2024-04-23 02:35] LABS: Influenza A QL RT-PCR Negative (Negative); Influenza B QL RT-PCR Negative (Negative); RSV RNA, RT-PCR Negative (Negative); SARS-CoV-2 RNA PCR Negative (Negative)
[2024-04-23 03:36] VITALS: BP 136/82; PULSE 98; RESP 15; O2SAT 96
[2024-04-23 04:40] LABS: Troponin I < 0.012 ng/mL (0.000-0.034)
--- NOTE | 2024-04-23 05:37 | ED_ITS ---
HPI - General Adult General Chief complaint: Shortness of Breath/Dyspnea Stated complaint: sob Time Seen by Provider: 04/23/24 00:37 History of Present Illness HPI narrative: This is a 48-year-old female with history of regurgitation an aspiration presenting for concerns about aspiration pneumonia. Patient says that while she sleeps she frequently has severe reflux. She has had a go down the wrong pipe and feels like she is developing worsening shortness of breath. She is concerned she may have developed aspiration pneumonia. Related Data Home Medications ?Medication ?Instructions ?Recorded ?Confirmed ?Last Taken ?Type bupropion HCl 300 mg 24 hr tablet, 300 mg PO DAILY 05/02/20 04/21/24 07/24/23 History extended release (Wellbutrin XL) duloxetine 20 mg capsule,delayed 40 mg PO HS 05/02/20 04/21/24 07/24/23 History release potassium citrate 15 mEq (1,620 1,620 mg PO BID 05/02/20 04/21/24 07/24/23 History mg) tablet,extended release propranolol 10 mg tablet 10 mg PO QAM 05/02/20 04/21/24 11/21/22 07:30 History trazodone 100 mg tablet 100 mg PO HS 05/02/20 04/21/24 07/24/23 History alprazolam 0.5 mg tablet 1 mg PO BID PRN Anxiety 09/15/20 04/21/24 11/21/22 07:30 History cholecalciferol (vitamin D3) 125 5,000 unit PO DAILY 09/15/20 04/21/24 07/24/23 History mcg (5,000 unit) tablet (Vitamin D3) cyanocobalamin (vitamin B-12) 1,000 mcg PO DAILY 09/15/20 04/21/24 07/24/23 History 1,000 mcg tablet Allergies Allergy/AdvReac Type Severity Reaction Status Date / Time No Known Allergies Allergy Verified 04/22/24 23:08 [facility] Past Medical History Medical History Aspiration into airway Colon cancer screening Elevated lipase Decreased appetite LLQ pain Arthritis Osteoporosis Psoriasis Excessive thirst UTI (urinary tract infection) IBS (irritable bowel syndrome) Atrial tachycardia Hoarseness Short-term memory loss Chills History of kidney stones Abdominal pain in female Abnormal serum lipase level Abnormal weight gain Acute cystitis without hematuria Acute diverticulitis Acute non-recurrent pansinusitis Acute shoulder pain Adult idiopathic generalized osteoporosis Age-related osteoporosis with current pathological fracture, unspecified ankle and foot, initial encounter for fracture Anemia Anxiety Arthralgia Arthritis of both knees Bilateral tinnitus Body mass index (bmi) 39.0-39.9, adult (01/12/19) Bone spur of left foot Chronic migraine Chronic narcotic use Chronic pain syndrome Cyst of ovary Diarrhea Dietary counseling and surveillance (08/25/15) Diverticulitis of large intestine without perforation or abscess Diverticulosis of intestine, part unspecified, without perforation or abscess with bleeding Duodenal ulcer Dysphagia Dysuria Meredith-Danlos syndrome Epigastric pain Establishing care with new doctor, encounter for Fatigue Fear of flying Fibromyalgia Gastric ulcer Gastroesophageal reflux disease Generalized abdominal pain Generalized anxiety disorder History of dislocation of knee Hyperextension deformity of knee Hyperthyroidism Hypokalemia Hypovitaminosis D Immunosuppressed status Impingement syndrome of right shoulder Irregular menses 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 syndrome with constipation 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 diarrhea 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 Low TSH level Low back pain Luteal cystic ovary disease Microscopic hematuria Migraine, unspecified, not intractable, without status migrainosus Multinodular goiter Muscle weakness of lower extremity Musculoskeletal pain Nausea Nephrolithiasis Nonintractable migraine Osteoarthritis of spine with radiculopathy, lumbar region Other chronic pain Overweight (11/22/16) PUD (peptic ulcer disease) Pain in both hands Pain of both hip joints Pain of left heel Pneumonia due to infectious organism Polyuria Prepatellar bursitis of both knees Prepatellar bursitis, left knee Rheumatoid arthritis of multiple sites with negative rheumatoid factor Rheumatoid arthritis of unspecified site with involvement of other organs and systems Right lower quadrant abdominal pain Swelling Swelling of finger joint of left hand Thyroid nodule Urinary symptom or sign Urinary tract infection without hematuria Weight loss Yeast vaginitis Surgical History Surgical History History of hysterectomy 2022 History of knee surgery ANUSHA reconstruction. History of lithotripsy x4. Previous section History of colonoscopy History of tonsillectomy Family History Family History Mother Patient's mother is in good health Family history of arthritis Father Patient's father is in good health Family history of alcoholism Family history of arthritis Family history of obesity Family history of chronic obstructive pulmonary disease Sibling Patient's sister is in good health Patient's brother is in good health Grandparent Family history of Alzheimer's disease Family history of lung cancer Other Family history of attention deficit hyperactivity disorder (ADHD) Social History Social History Smoking packs per day: 0.5 Smoking cigarettes per day: 10.0 Years smoked: 23 Smoking pack-years: 11.50 Smoking status: Former smoker Tobacco type: cigarettes Smoking end date: 12/31/12 Alcohol intake: current Drinks per week: 2 Alcohol use details: 2/MONTH Substance use: former Substance use type: marijuana Other substance usage details: STOPPED GUMMIES MAY 2023 Lack of Transportation: No Lack of Food: Never True Current Housing: I Have Housing Concerned About Future Housing: No Difficulty Paying Gas/Electric Bills: No Difficulty Paying for Meds: No Currently Unemployed: No Education: Bachelor's Degree Difficulty w/ Childcare or Family Care: No Living arrangements: with family Additional living arrangements comments: AND CHILDREN Gender identity (if verbalized by the patient): Female Sexual Orientation (if Verbalized by the Patient): Straight or Heterosexual Spiritual care concerns: No Exam 2 Narrative: APPEARANCE: No apparent distress, anxious. Head: atraumatic. EYES: EOMI, NOSE: Atraumatic NECK: Trachea midline RESPIRATORY: No increased rate of breathing, Mild end-expiratory wheezing, reactive cough on deep breaths CARDIOVASCULAR: RRR, ABDOMINAL: Non-distended Soft nontender MUSCULOSKELETAl: No obvious deformities NEURO: Alert. Moving 4/4 extremities SKIN:: Warm, dry. Normal color PSYCHIATRIC: Normal affect Course Vital Signs Vital signs: Vital Signs Temperature 97.3 F L 04/22/24 22:59 Pulse Rate 112 H 04/22/24 22:59 Respiratory Rate 20 04/22/24 22:59 Blood Pressure 147/87 H 04/22/24 22:59 Pulse Oximetry 98 04/22/24 22:59 Oxygen Delivery Room Air 04/22/24 22:59 Temperature 97.3 F L 04/22/24 22:59 Pulse Rate 98 04/23/24 03:36 Respiratory Rate 15 04/23/24 03:36 Blood Pressure 136/82 04/23/24 03:36 Pulse Oximetry 96 04/23/24 03:36 Oxygen Delivery Room Air 04/22/24 22:59 Medical Decision Making MDM Narrative Medical decision making narrative: -Course: 48-year-old female presenting with concerns about aspiration pneumonia. On exam she is anxious but not in respiratory distress. She is saturating well on room air. Chest x-ray was clear. CT PE ordered to evaluate which did not have any evidence of pulmonary embolism or aspiration pneumonia/pneumonitis. Viral swabs were negative. patient's presentation is most consistent with bronchitis. Results were explained to the patient and she is comfortable going home to follow-up with her GI doctor And PCP for further management. -DDX includes but is not limited to: Pneumonia, viral syndrome, COVID flu -Independent interpretation of studies: labs and imaging reviewed -Shared decision making / Disposition:discharged. Vital Signs Vital Signs: Vital Signs Temperature 97.3 F L 04/22/24 22:59 Pulse Rate 112 H 04/22/24 22:59 Respiratory Rate 20 04/22/24 22:59 Blood Pressure 147/87 H 04/22/24 22:59 Pulse Oximetry 98 04/22/24 22:59 Oxygen Delivery Room Air 04/22/24 22:59 Temperature 97.3 F L 04/22/24 22:59 Pulse Rate 98 04/23/24 03:36 Respiratory Rate 15 04/23/24 03:36 Blood Pressure 136/82 04/23/24 03:36 Pulse Oximetry 96 04/23/24 03:36 Oxygen Delivery Room Air 04/22/24 22:59 Lab Data 04/23/24 01:28 04/23/24 01:28 Labs: Lab Results 04/23/24 04/23/24 Range/Units 01:28 04:11 WBC 12.0 H (4.5-10.0) K/mm3 RBC 4.14 L (4.2-5.4) M/mm3 Hgb 10.4 L (12.0-15.0) g/dL Hct 33.7 L (37.0-47.0) % MCV 81.4 (80-100) fl MCH 25.1 L (26-34) pg MCHC 30.9 L (32-36) g/dl RDW 15.2 H (11.5-14.5) % Plt Count 289 (150-375) k/mm3 MPV 9.2 (7.4-10.4) fl Immature Gran % (Auto) 0.5 (0-0.5) % Neut % (Auto) 72.2 (45.5-73.1) % Lymph % (Auto) 20.8 (18.3-44.2) % [place] % (Auto) 3.7 (2.6-8.5) % Eos % (Auto) 2.2 (0-4.4) % Baso % (Auto) 0.6 (0.2-1.2) % Lymph # (Auto) 2.50 (0.9-3.2) K/mm3 [place] # (Auto) 0.4 (0.1-0.6) K/mm3 Eos # (Auto) 0.3 (0-0.3) K/mm3 Baso # (Auto) 0.1 (0.0-0.1) K/mm3 Abs Immat Gran (auto) 0.06 H (0.00-0.031) K/mm3 Absolute Neuts (auto) 8.7 H (1.3-6.7) K/mm3 Absolute Nucleated RBC 0.000 (0.0-0.012) K/mm3 Nucleated RBC % 0.0 (0.0-0.2) % PT 12.4 (11.1-14.7) Seconds INR 0.9 APTT 29.1 (22.3-36.8) Seconds Sodium 135 L (137-145) mmol/L Potassium 3.9 (3.4-5.0) mmol/L Chloride 105 (98-107) mmol/L Carbon Dioxide 28 (22-30) mmol/L Anion Gap 2 L (4-12) mmol/L BUN 11 (7-17) mg/dL Creatinine 0.80 (0.7-1.0) mg/dL Estim Creat Clear Calc Not Reportable Estimated GFR > 60 (59 - ) Glucose 86 (65-110) mg/dL Calcium 8.7 (8.4-10.2) mg/dL Total Bilirubin 0.6 (0.2-1.3) mg/dL AST 32 (14-36) U/L ALT 37 H (6-35) U/L Alkaline Phosphatase 91 (38-126) U/L Troponin I < 0.012 < 0.012 (0.000-0.034) ng/mL NT-Pro-B Natriuret Pep 142 H (19.9-100) pg/mL Total Protein 7.0 (6.3-8.2) g/dL Albumin 3.8 (3.5-5.1) g/dL Lipase 304 H (23-300) U/L Influenza A (RT-PCR) Negative (Negative) Influenza B (RT-PCR) Negative (Negative) RSV (RT-PCR) Negative (Negative) SARS-CoV-2 RNA (RT-PCR) Negative (Negative) Discharge Plan Discharge Clinical Impression: Bronchitis Patient Disposition: Home, Self-Care Condition: Stable Instructions: Antibiotic Form, Acute Bronchitis (ED) Additional Instructions: Please use Motrin Tylenol for fevers and body aches. Please follow-up with your primary care physician for further management. If you develop chest pain shortness of breath or feel like your condition is getting worse please return to the ED. Patient Language: Turkmen Prescriptions: No Action duloxetine 20 mg capsule,delayed release(DR/EC) 40 mg PO HS propranolol 10 mg tablet 10 mg PO QAM bupropion HCl [Wellbutrin XL] 300 mg tablet extended release 24 hr 300 mg PO DAILY trazodone 100 mg tablet 100 mg PO HS potassium citrate 15 mEq tablet extended release 1,620 mg PO BID sucralfate [Carafate] 100 mg/mL suspension 1 g PO ACHS Qty: 60 0RF metoclopramide HCl [Reglan] 10 mg tablet See Rx Instructions PO .COMPLEX Qty: 30 11RF Rx Instructions: Take 10 mg PO before dinner alprazolam 0.5 mg tablet 1 mg PO BID PRN (Reason: Anxiety) cyanocobalamin (vitamin B-12) 1,000 mcg Tablet 1,000 mcg PO DAILY cholecalciferol (vitamin D3) [Vitamin D3] 125 mcg (5,000 unit) Tablet 5,000 unit PO DAILY tramadol 50 mg tablet 50 mg PO Q6H PRN (Reason: pain) Qty: 10 0RF ibuprofen [Motrin IB] 200 mg capsule 600 mg PO Q8H PRN (Reason: pain) Qty: 30 0RF psyllium husk [Fiber (psyllium husk)] 0.4 gram capsule 0.4 g PO DAILY Qty: 30 0RF pantoprazole 40 mg tablet,delayed release (DR/EC) See Rx Instructions .ROUTE .COMPLEX Qty: 60 11RF Dose Instruction: TAKE 1 TABLET BY MOUTH TWICE DAILY Rx Instructions: TAKE 1 TABLET BY MOUTH TWICE DAILY sumatriptan succinate 6 mg/0.5 mL pen injector See Rx Instructions .ROUTE .COMPLEX Qty: 2 5RF Dose Instruction: INJECT 0.5 ML UNDER SKIN ONCE FOR HEADACH, MAY REPEAT DOSE ONCE IN 1 HOUR IF NOT RELIEVED Rx Instructions: INJECT 0.5 ML UNDER SKIN ONCE FOR HEADACH, MAY REPEAT DOSE ONCE IN 1 HOUR IF NOT RELIEVED ondansetron HCl 4 mg tablet 4 - 8 mg PO Q8H PRN (Reason: nausea and vomiting) Qty: 20 0RF hydrocodone-acetaminophen 5-325 mg tablet 1 tablet PO Q8H PRN (Reason: pain) Qty: 75 0RF Wegovy 0.25 mg/0.5 mL pen injector 0.25 mg subcut WEEKLY Qty: 2 0RF Rx Instructions: administer weeks 1 through 4 of therapy; call for next dose dicyclomine 20 mg tablet 20 mg PO TID PRN (Reason: abdominal pain) Qty: 120 4RF sucralfate 1 gram tablet See Rx Instructions .ROUTE .COMPLEX Qty: 120 0RF Dose Instruction: TAKE 1 TABLET BY MOUTH BEFORE MEALS AND AT BEDTIME Rx Instructions: TAKE 1 TABLET BY MOUTH BEFORE MEALS AND AT BEDTIME Follow-up/Referrals: Jose Zhang DO [Primary Care Provider] - 1 Week (bronchitis )
[2024-04-23 06:23] VITALS: BP 132/80; PULSE 82; RESP 15; O2SAT 97
--- OUTSIDE RECORDS SUMMARY | 2024-04-29 19:12 | XMS_ITS ---
Author Organization [facility] [employer] [facility] Address [address] [place] [address] Care Team Providers Care Glaze Grinder Name Role Phone Jose Zhang DO Primary Care Provider UnavailAlix Sher Unavailable [phone] Natty Grier Unavailable [phone] REASON FOR VISIT Refills Medications Medication SIG (Take, Route, Fr equency, Duration) Notes Start Date End Date Status ALPRAZolam 0.5 MG 1 tablet Oral three times a day for 30 days As needed 01/21/2024 Active Social History Sex Assigned At : Social History Observation Description Sex Assigned At Female Encounters Encounter Location Date Provider Diagnosis [facility] [employer] [facility] [address] [place] [address] 01/21/2024 Natty Grier Generalized anxiety disorder F41.1 Assessments Encounter Date Diagnosis (ICD Code) Assessment Notes Treatment Notes Treatment Clinical Notes Section Notes 01/21/2024 Generalized anxiety disorder (ICD-10 - F41.1) Plan Of Treatment Medication Medication Name Sig Start Date Stop Date Notes ALPRAZolam 0.5 MG 1 tablet Oral three times a day for 30 days 01/21/2024 Next Appt Details Provider Name:Mario hammer, 05/04/2024 10:00:00 AM, [address], [facility] [address], [place], [address], Provider Name:Alix goldman, 06/12/2024 02:45:00 PM, [address], [facility] [address], [place], [address], Progress Notes * JULIAN SAUERDOB:1975 ( 48 yo F)Acc No.[id number]:01/21/2024 Patient:?JULIAN SAUER :1975???Age:48 Y???Sex:Female Address:[address] [place] [address], [place] [address] * Refills? Refill ALPRAZolam Tablet, 0.5 MG, Oral, 90, 1 tablet, three times a day, 30 days, Refills=0 Subjective: * Chief Complaints: * ???Refills * Medical History:? * Surgical History:? * Hospitalization/Major Diagno stic Procedure:? * Medications:? Objective: * Vitals:? * Physical Examination:? Assessment: * Assessment: 1.?Generalized anxiety disor christian - F41.1??? Plan: * Treatment: * Procedure Codes:? * true * Date:? Generated for Tree regalado/Caryl/Maikelsmitting on:?04/29/2024 07:12 PM [employer]PERATOR
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
--- OUTSIDE RECORDS SUMMARY | 2024-04-29 19:12 | XMS_ITS ---
Author Organization [facility] [employer] [facility] Address [address] [place] [address] Care Team Providers Care Event Marketing Representative Name Role Phone Jose Zhang DO Primary Care Provider UnavailAlix Sher Unavailable [phone] Allergies No Known Allergies REASON FOR VISIT f/u medication eval Medications Medication SIG (Take, Route, Frequency, Duration) Notes Start Date End Date Status Pantoprazole Sodium 40 MG Oral Active Potassium Citrate ER 15 mEq Oral *Pick strength-form from [employer] for eRX* Active ALPRAZolam 0.5 MG 1 tablet Oral three times a day for 30 days As needed 01/21/2024 Active DULoxetine HCl 60 MG 1 capsule Oral Once a day for 30 days total dose 90 mg Active SUMAtriptan Succinate 6 MG/0.5ML Subcutaneous Active Propranolol HCl 10 MG 1 tablet Orally twice a day for 30 days Active ALPRAZolam 0.5 MG 1 tablet Oral three times a day for 30 days total dose 1.5mg daily tapering 04/16/2024 Active DULoxetine HCl 30 MG 1 capsule Orally Once a day for 30 days total dose 90 mg 01/30/2024 Active HYDROcodone-Acetamino phen 5-325 MG Oral Active LUBIPROSTONE 24 MCG CAPSULE *Reorder from [employer] for eRx and Interaction Alerts* Active Ondansetron 8 MG Oral Act stanley Gabapentin 100 MG Oral Ac tive Dicyclomine HCl 20 MG Oral Active traZODone HCl 100 MG 1 tablet at bedtime Oral Once a day for 30 days Active buPROPion HCl ER (XL) 300 MG 1 tablet in the morning Oral Once a day for 30 days Active Metoclopramide HCl 5 MG Oral Active Social History Tobacco Use: Social History Observation Description Date Details (start date - stop date) Former Smoker NA - NA Sex Assigned At : Social History Observation Description Sex Assigned At Female Tobacco Control (Standard) Question Answer Notes When did you start smoking? 1990 When did you stop smoking? 2012 How long has it been since you last smoked? [address] ter than 10 years Tobacco use: Former [...] NoWho is your employer?: I have [employer] and have been ?retired? 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 Vital Signs Blood pressure systolic 152 mm Hg 04/16/20 24 Blood pressure diastolic 80 mm Hg 024 Heart Rate 88 /min 04/16/2024 Height 66.00 in 04/16/2024 Weight 225.0 lbs 04/16/2024 BMI 36.31 kg/m2 04/16/2024 Height-cm 167.64 cm 04/16/2024 Weight-kg 102.06 kg 04/16/2024 Encounters Encounter Location Date [facility] [address] [place] [address] 04/16/2024 Alix Sanchez Generalized anxiety disorder F41.1 ; Insomnia due to other mental disorder F51.05 ; 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 and Elevated BP without diagnosis of hypertension R03.0 Assessments Encounter Date Diagnosis (ICD Code) Assessment Notes Treatment Notes Treatment Clinical Notes Section Notes 04/16/2024 Generalized anxiety disorder (ICD-10 - F41.1) [...] 2 months, sooner if concerns arise 04/16/2024 Elevated BP without diagnosis of hypertension [...] sooner if concerns arise Plan Of Treatment Medication Medication Name Sig Start Date Stop Date Notes DULoxetine HCl 60 MG 1 capsule Oral Once a day for 30 days Propranolol HCl 10 MG 1 tablet Orally tw ice a day for 30 days ALPRAZolam 0.5 MG 1 tablet Oral three times a day for 30 days 04/16/2024 tapering DULoxetine HCl 30 MG 1 capsule Orally On ce a day for 30 days 01/30/2024 traZODone HCl 100 MG 1 tablet at bedtime Oral Once a day for 30 days buPROPion HCl ER (XL) 300 MG 1 tablet in the morning Oral Once a day for 30 days Next Appt Details Follow Up: 2 Months, Reason: Provider Name:Mario hammer, 05/04/2024 10:00:00 AM, [address], [place], [address], Provider Name:Alix Chang susi, 06/12/2024 02:45:00 PM, [address], [facility] [address], [place], [address], Progress Notes * CAMACHO JULIANDOB:1975 ( 48 yo F)Acc No.[id number]:04/16/2024 Patient:?JULIAN SAUER Provider:?Alix Sanchez :1975???Age:48 Y???Sex:Female D ate:04/16/2024 Address:[address] [place], [place] [id number] Pcp:Jose Zhang DO Subjective: * Chief Complaints: * ???F/u medication eval * HPI: ???History of Presenting Problem:? 48 y/o female, , 5 kids (combined), does not work d/t physical health, here to follow up r/t anxiety and insomnia, in context of chronic health problems. Presents today reporting ongoing anxiety, noting not much better since increasing cymbalta last visit. Attributes most of her anxiety to her health problems. Managing overall. no depression, mood has been fairly good. Reports anxiety has been worse lately from her aspirating and getting pneumonia. 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 Reports surgery is an option, but can come with it's own risks and complications. Has an edg planned for april.? Also endorses more anxiety lately for her 18 y/o old and difficulty controllinh his epilepsy. Medications were just changed, hopeful to see good changes from that.? sleep is okay, trazodone helpful. Experiences knee dislocations in her sleep, causing pain and difficulty sleeping well some nights. Appetite is normal. Reports increased stress while attempting to taper off alprazolam, does not wish to continue tapering at this time due to current circumstances. Inquires about duloxetine, expressing concerns about recent news report on contamination and potential link to cancer. Plans to contact pharmacy to check if exposed to contaminated medication. Previously in therapy, currently not seeing a therapist due to previous therapist's relocation. Open to seeing a new therapist. ???Depression Screening:?FERNANDA-7 (2018 Edition)?Feeling nervous, anxious, or on edge?More than half the days,?Not being able to stop or control worrying?Several days,?Worrying too much about different things?More than hafl the days,?Trouble relaxing?Nearly every day,?Being so restless that it is hard to sit still?Nearly every day,?Becoming easily annoyed or irritable?More than half the days,?Feeling afraid as if something awful might happen?Not at all,?Total FERNANDA-7 Score?13,?If you checked any problems, how difficult have they made it for you to do your work, take care of things at home, or get along with other people??Extremely difficult,?Interpretation of Total?(10 to 14) Moderate.?[place]-Suicide Severity Rating Scale:?Suicide Risk (CSRS-screener)?in the past one month Have you wished you were or wished you could go to sleep and not wake up??No,?in the past one month Have you actually had any thoughts of killing yourself??No,?Have you ever done anything, started to do anything, or prepared to do anything to end your life??No.?Depression screening:?PHQ-9?Little interest or pleasure in doing things?Not at all,?Feeling down, depressed, or hopeless?Not at all,?Trouble falling or staying asleep, or sleeping too much?Several days,?Feeling tired or having little energy?More than half the days,?Poor appetite or overeating?Not at all,?Feeling bad about [...] hurting yourself in some way?Not at all,?Total Score?3,?Interpretation?Minimal Depression.?Intervention?Depression Screening Findings?Negative,?Suicide Risk Assessment Performed?04/16/2024 .?Past Psychiatric Hospitalizations:?Previous psychiatric hospitalizations?Previous Psychiatric Hospitalization?No.?Past History of Suicidal attempt?Have you ever attempted suicide in the past?No.? * ROS:?General / Constitutional:?Patient complains of?fatigue, pain, sleep disturbance.?Gastrointestinal:?Patient denies?nausea, vomiting, change in bowel habits, stomach problems.?Neurologic:?Patient complains of?tremor.?Psychiatric:?Patient denies?auditory / visual hallucinations, delusions, suicidal thoughts, Dissociations, involuntary movements.?Comments?See HPI for details.? * Medical History:? * Surgical History:?Sinus surg millie Tonsilectomy/adenoids 04/22/1980Hysterectomy (42293) 03/01/2023oopherectomy 12/2023 * Hospitalization/Major Diagno stic Procedure:? * Family History:?Father: None .?Maternal Aunt: None.?Maternal Uncle: None.?Paternal Aunt: None.?Paternal Uncle: None.?Mother: Bipolar Disorder, diagnosed with Mental health disorder. Paternal Grandfather: None.?Paternal Grandmother: None.?Maternal Grandfather: PTSD.?Maternal Grandmother: None.?Brother: None.?Sister: ADHD.?Son: Anxiety Disorder.?Daughter: None.?2 brother(s) , 1 sister(s) . 2 son(s) . .? * Social History:?Tobacco Use:?Tobacco Control (Standard)?When did you start smoking??1990,?When did you stop smoking??2012,?How long has it been since you last smoked??Greater than 10 years,?Tobacco use:?Former smoker.?Migrated Social History:?Migrated Social History: Alcohol Intake: Occasional 09/11/2023,Tobacco Years: Former smoker 09/11/2023. ???Drug/Alcohol:?Drugs?Have you used drugs other than those for medical reasons in the past 12 months??No.?AUDIT-C (Standard)?Did you have a drink containing alcohol in the past year??Yes,?How often did you have six or more drinks on one occasion in the past year??Never (0 point),?How many drinks did you have on a typical day when you were drinking in the past year? 1 or 2 drinks (0 point),?How often did you have a drink containing alcohol in the past year??2 to 4 times a month (2 points),?Interpretation?Negative.?Miscellaneous:?Safety issues?Are there any firearms in the house??No.?Occupation: Retired [employer]. Advance Care Planning?Are you your own decision-maker?Yes,?Do you have Power of Bottom Presser for Health or Medical??No.?Social History:?Household?Marital Status:?,?Number of Adults in household:?2,?Number of Children in Household:?1,?Level of Education:?Professional Schools/Masters/PhD.?Social History Substance UseDo you or have you [...] NoWho is your employer?: I have [employer] and have been ?retired? for 5 years.Marriage and SexualityWhat is your relationship status?: MarriedAre you sexually active?: NoDo you use protection during sex?: NoHow many children do you have?: 5Home and EnvironmentAre there any guns present in your home?: NoAdvance DirectiveDo you have an advance directive?: NoDo you have a medical power of corporate associate attorney?: No. * Medications:?TakingDULoxetin e HCl 60 MG Capsule Delayed Release Particles 1 capsule Oral Once a day traZODone HCl 100 MG Tablet 1 tablet at bedtime Oral Once a day buPROPion HCl ER (XL) 300 MG Tablet Extended Release 24 Hour 1 tablet in the morning Oral Once a day Propranolol HCl 10 MG Tablet 1 tablet Orally twice a day ALPRAZolam 0.5 MG Tablet 1 tablet Oral three times a day total dose 1.5mg daily, Notes to Pharmacist: taperingMetoclopramide HCl 5 MG Tablet Oral Ondansetron 8 MG Tablet Disintegrating Oral Gabapentin 100 MG Capsule Oral Dicyclomine HCl 20 MG Tablet Oral HYDROcodone-Acetaminophen 5-325 MG Tablet Oral LUBIPROSTONE 24 MCG CAPSULE , Notes to Pharmacist: *Reorder from [employer] for eRx and Interaction Alerts*SUMAtriptan Succinate 6 MG/0.5ML Solution Auto-injector Subcutaneous Pantoprazole Sodium 40 MG Tablet Delayed Release Oral Potassium Citrate ER 15 mEq Tablet Extended Release Oral , Notes to Pharmacist: *Pick strength-form from [employer] for eRX*ALPRAZolam 0.5 MG Tablet 1 tablet Oral three times a day As neededDULoxetine HCl 30 MG Capsule Delayed Release Particles 1 capsule Orally Once a day , Notes to Pharmacist: increase, total dose 90mgMedication List reviewed and reconciled with the patientTaking DULoxetine HCl 60 MG Capsule Delayed Release Particles 1 capsule Oral Once a day Taking traZODone HCl 100 MG Tablet 1 tablet at bedtime Oral Once a day Taking buPROPion HCl ER (XL) 300 MG Tablet Extended Release 24 Hour 1 tablet in the morning Oral Once a day Taking Propranolol HCl 10 MG Tablet 1 tablet Orally twice a day Taking ALPRAZolam 0.5 MG Tablet 1 tablet Oral three times a day total dose 1.5mg daily, Notes to Pharmacist: taperingTaking Metoclopramide HCl 5 MG Tablet Oral Taking Ondansetron 8 MG Tablet Disintegrating Oral Taking Gabapentin 100 MG Capsule Oral Taking Dicyclomine HCl 20 MG Tablet Oral Taking HYDROcodone-Acetaminophen 5-325 MG Tablet Oral Taking LUBIPROSTONE 24 MCG CAPSULE , Notes to Pharmacist: *Reorder from [facility] for eRx and Interaction Alerts*Taking SUMAtriptan Succinate 6 MG/0.5ML Solution Auto-injector Subcutaneous Taking Pantoprazole Sodium 40 MG Tablet Delayed Release Oral Taking Potassium Citrate ER 15 mEq Tablet Extended Release Oral , Notes to Pharmacist: *Pick strength-form from [facility] for eRX*Taking ALPRAZolam 0.5 MG Tablet 1 tablet Oral three times a day As neededTaking DULoxetine HCl 30 MG Capsule Delayed Release Particles 1 capsule Orally Once a day , Notes to Pharmacist: increase, total dose 90mgMedication List reviewed and reconciled with the patient * Allergies:?N.K.D.A.no[Allerg ies Verified] Objective: * Vitals:?BP:152/80mm Hg, HR:8 8/min, Wt:225.0lbs, Wt-k.06 kg, Ht: 66.00 in, Ht-cm: 167.64 cm, BMI:36.31Index, Body Surface Area: 2.18. * Examination: ???Psychiatry: ?Appearance:?alert, pleasant, groomed,?well-nourished and in no acute distress.?Abnormal body movements:?none.?Affect / mood:?appropriate, full range.?Attention:?good, normal in conversation.?Attitude:?cooperative, open-minded with collaborative approach.?Homicidal ideation:?none.?Suicidal ideation:?none.?Memory status:?no impairment noted.?Degree of awareness of surroundings:?within normal limits.?Delusions:?no.?Hallucinations:?no.?Insight:?good.?Intellectual functioning:?no impairment noted.?Judgement:?good.?Orientation:?awake, alert and oriented x 3.?Psychomotor activity:?within normal range.?Speech / language:?appropriate pitch/modulation, clear and coherent, normal rate, volume, and articulation (RVR), proper grammar used.?Thought content:?appropriate.?Thought process:?intact.? 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 Assessment and Plan: reports stable mood and mild anxiety, persistent, has been higher lately from medical concerns Stress and mood disturbance primarily related to her ongoing heatlh concerns sleep disruptive from pain, dislocates her joints in her sleep, uncomfrtable a lot, but otherwise trazodone effective? Plan: ?- continue duloxetine 90 mg daily ?- continue wellbutrin XL 300 mg daily ?- continue propanolol 10 mg bid ?- continue alprazolam 0.5 mg tid, tapering, will try to decrease again next visit ?- continue trazodone 100 mg qhs follow up 2 months, sooner if concerns arise Plan: * Treatment: 2.?Insomnia due to other men linda disorder? Refill traZODone HCl Tablet, 100 MG, 1 tablet at bedtime, Oral, Once a day, 30 days, 30 Tablet, Refills 1.?? * Procedure Codes:?20827 BEHAV ASSMT W/SCORE & DOCD/STAND [id number] VISIT COMPLEXITY INHERENT TO ONGOING CARE RELATED TO A PATIENT'S SINGLE, SERIOUS CONDITION OR A COMPLEX CONDITION * Preventive Medicine:? ??Counseling:?BP Management:?PRE-HYPERTENSIVE FOLLOW-UP PLAN:?Follow-up 1 month ____,?LIFESTYLE RECOMMENDATION:?Lifestyle education Recommended Nonpharmacologic Interventions (Lifestyle Modifications) -Weight ReductionA heart-healthy diet , such as Dietary Approaches to Stop Hypertension (DASH) Eating PlanDietary Sodium RestrictionIncreased Physical ActivityModeration in alcohol consumption,?REFERRAL TO ALTERNATIVE / PRIMARY CARE PROVIDER:?Referral to general physician .? * Follow Up:?2 Months * Billing Information: * Visit Code:? 86347 OFFICE OUTPATIENT VISIT 25 MINUTES DETAILED HISTORY AND EXAM/MODERATE MEDICAL DECISION MAKING. * Procedure Codes:? 54309 BEHAV ASSMT W/SCORE & DOCD/STAND INSTRUMENT. G2211 VISIT COMPLEXITY INHERENT TO ONGOING CARE RELATED TO A PATIENT'S SINGLE, SERIOUS CONDITION OR A COMPLEX CONDITION. * TRIC REPAIR SUPERVISOR Electronically co-signed by Alix Sanchez on 04/28/2024 at 05:16 PM ELECTRIC REPAIR SUPERVISOR Sign off status: Completed true * Provider:?Alix Sanchez Date:? 024 Generated for Tree regalado/Caryl/eTransmitting on:?04/29/2024 07:11 PM ELECTRIC REPAIR SUPERVISOR History and Physical Notes * HPI (History of Present Illness) Category Sub-Category Detail Notes Category Not es Past Psychiatric Hospitalizations Previous psychiatric hospitalizations Previous Psychiatric Hospitalization: No Past History of Suicidal attempt Have yo u ever attempted suicide in the past: No Depression screening PHQ-9 Little inte rest or pleasure in doing things: Not at all Feeling down, depressed, or hopeless: No t at all Trouble falling or staying asleep, or sl eeping too much: Several days Feeling tired or having little energy: M ore than half the days Poor appetite or overeating: Not at all [...] some way: Not at all Total Score: 3 Interpretation: Minimal Depression Intervention Depression Screening Findings: N egative Suicide Risk Assessment Performed: 04/16 Depression Screening FERNANDA-7 (2018 Edition) Feelin g nervous, anxious, or on edge: More than half the days Not being able to stop or control worryjorge regalado: Several days Worrying too much about different things : More than hafl the days Trouble relaxing: Nearly every day Being so restless that it is hard to sit still: Nearly every day Becoming easily annoyed or irritable: Mo re than half the days Feeling afraid as if something awful darien ht happen: Not at all Total FERNANDA-7 Score: 13 If you checked any problems, how difficult have they made it for you to do your work, take care of things at home, or get along with other people?: Extremely difficult Interpretation of Total: (10 to 14) Mode rate [place]-Suicide Severity Rating Scale Suicide Risk (CSRS-screener) in the past one month Have you wished you were or wished you could go to sleep and not wake up?: No in the past one month Have y ou actually had any thoughts of killing yourself?: No ?Have you ever done anything , started to do anything, or prepared to do anything to end your life?: No Examination Category Sub-Category Detail Notes Category Not es Psychiatry Appearance: alert, pleasant, groomed, well-nourished and in no acute distress Attitude: cooperative, open-mi nded with collaborative approach Psychomotor activity: within normal rang e Abnormal body movements: none Attention: good, normal in conv ersation Degree of awareness of surroundings: wit hin normal limits Orientation: awake, alert and freddy ented x 3 Affect / mood: appropriate, full ra nge Speech / language: appropriate pitch/mo dulation, clear and coherent, normal rate, volume, and articulation (RVR), proper grammar used Insight: good Judgement: good Thought process: intact Thought content: appropriate Suicidal ideation: none Homicidal ideation: none Intellectual functioning: no impairment noted Memory status: no impairment noted Delusions: no Hallucinations: no
--- OUTSIDE RECORDS SUMMARY | 2024-04-29 19:19 | XMS_ITS | Encounter Summary ---
Author Organization [facility] Address [address] [place] [address] Care Team Providers Care Repacker Name Role Phone Minnie Jonathan Delaney RN Unavailable [phone] Feliciano Dash MD Primary Care Provider [phone] Reason for Visit * Reason Comments Pain Flank right side - began y esterday - has hx of kidney stones Encounter Details Date Type Department Care Team (Late st Contact Info) Description 05/17/2016 3:46 PM EXECUTIVE [employer]IDENT [employer] SALES - 05/17/2016 7:49 PM EXECUTIVE VICE PRESIDENT OF SALES Emergency ER at [facility] [address] [place] [address] [id number] [place] [address] [facility] [place] [address] Urinary tract infection with hematuria, site unspecified; Nephrolithiasis Discharge Disposition: Home or Self Care Social History Tobacco Use Types Packs/Day Years Used Date Smoking Tobacco: Every Day Cigarettes Last attempted to quit: 05/23/2012 Smokeless Tobacco: Never Comments:e-cigarette Alcohol Use Standard Drinks/Week Comments Yes 0 (1 standard drink = 0.6 oz pur e alcohol) rare Sex and Gender Information Value Date Recorded Sex Assigned at Not on file Gender Identity Female 01/29/2017 1:09 PM CDT Sexual Orientation Not on file documented as of this encounter Last Filed Vital Signs Vital Sign Reading Time Taken Comments Blood Pressure 123/77 05/17/2016 7:47 PM EXECUTIVE [employer] Pulse 101 05/17/2016 7:47 PM EXECUTIVE [employer] SALES Temperature 36.9 ??C (98.5 ??F) 05/17/2016 7:00 PM CS T Respiratory Rate 16 05/17/2016 7:47 PM EXECUTIVE [employer] SALES Oxygen Saturation 99% 05/17/2016 7:47 PM EXECUTIVE [employer] SALES Inhaled Oxygen Concentration - - Weight 83.9 kg (185 lb) 05/17/2016 12:03 PM EXECUTIVE [employer]ICE [employer]IDENT [employer] SALES Height 165.1 cm (5' 5 ) 05/17/2016 12:03 PM EXEC[employer]IVE [employer] SALES Body Mass Index 30.79 05/17/2016 12:03 PM EXECUTIVE [employer] SALES documented in this encounter Functional Status Functional Status Response Date of Assess ment Is person deaf or have serious hearing difficult y? No 04/06/2016 Is person blind or have serious difficulty seein g? No 04/06/2016 Does person have serious dif ficulty walking/climbing stairs? Yes 04/06/2016 Does person have difficulty dressing/bathing? No 04/06/2016 Does person have difficulty doing errands alone? No 04/06/2016 Cognitive Status Response Date of Assessm ent Does person have difficulty concentrating/remembering/making decisions? No 04/06/2016 documented as of this encounter Discharge Instructions * Discharge Instructions* Eleno Mcclure, - 05/17/2016 7:36 PM EXECUTIVE [employer]ICE [employer]IDENT [employer] SALES Images from the original note were not included. Kidney Stones Kidney stones (urolithiasis) are solid masses that form inside your kidneys. The intense pain is caused by the stone moving through the kidney, ureter, bladder, and urethra (urinary tract). When the stone moves, the ureter starts to spasm around the stone. The stone is usually passed in your pee (urine). HOME CARE ?? Drink enough fluids to keep your pee clear or pale yellow. This helps to get the stone out. ?? Strain all pee through the provided strainer. Do not pee without peeing through the strainer, not even once. If you pee the stone out, catch it in the strainer. The stone may be as small as a grain of salt. Take this to your doctor. This will help your doctor figure out what you can do to try toprevent more kidney stones. ?? Only take medicine as told by your doctor. ?? Follow up with your doctor as told. ?? Get follow-up X-rays as told by your doctor. GET HELP IF: You have pain that gets worse even if you have been taking pain medicine. GET HELP RIGHT AWAY IF: ?? Your pain does not get better with medicine. ?? You have a fever or shaking chills. ?? Your pain increases and gets worse over 18 hours. ?? You have new belly (abdominal) pain. ?? You feel faint or pass out. ?? You are unable to pee. MAKE SURE YOU: ?? Understand these instructions. ?? Will watch your condition. ?? Will get help right away if you are not doing well or get worse. Document Released: 09/24/2008 Document Revised: 12/09/2013 Document Reviewed: 09/09/2013 ExitCare?? Patient Information ??2015 [employer]. This information is not intended to replace advice given to you by your health care provider. Make sure you discuss any questions you have with your health care provider. Flank Pain Flank pain is pain in your side. The flank is the area of your side between your upper belly (abdomen) and your back. Pain in this area can be caused by many different things. HOME senior care care and treatment will depend on the cause of your pain. ?? Rest as told by your doctor. ?? Drink enough fluids to keep your pee (urine) clear or pale yellow.? Only take medicine as told by your doctor. ?? Tell your doctor about any changes in your pain. ?? Follow up with your doctor. GET HELP RIGHT AWAY IF: ?? Your pain does not get better with medicine. ? You have new symptoms or your symptoms get worse. ?? Your pain gets worse. ? You have belly (abdominal) pain. ? You are short of breath. ? You always feel sick to your stomach (nauseous). ? You keep throwing up (vomiting). ? You have puffiness (swelling) in your belly. ? You feel light-headed or you pass out (faint). ? You have blood in your pee. ?? You have a fever or lasting symptoms for more than 2-3 days. ?? You have a fever and your symptoms suddenly get worse. MAKE SURE YOU: ?? Understand these instructions. ?? Will watch your condition. ?? Will get help right away if you are not doing well or get worse. Document Released: 01/15/2009 Document Revised: 08/23/2014 Document Reviewed: 11/20/2012 ExitCare?? Patient Information ??2015 [employer]. This information is not intended to replace advice given to you by your health care provider. Make sure you discuss any questions you have with your health care provider. Urinary Tract Infection Urinary tract infections (UTIs) can develop anywhere along your urinary tract. Your urinary tract is your body's drainage system for removing wastes and extra water. Your urinary tract includes two kidneys, two ureters, a bladder, and a urethra. Your kidneys are a pair of mcleod-shaped organs. Each kidney is about the size of your fist. They are located below your ribs, one on each side of your spine. CAUSES Infections are caused by microbes, which are microscopic organisms, including fungi, viruses, and bacteria. These organisms are so small that they can only be seen through a microscope. Bacteria are the microbes that most commonly cause UTIs. SYMPTOMS Symptoms of UTIs may vary by age and gender of the patient and by the location of the infection. Symptoms in young women typically include a frequent and intense urge to urinate and a painful, burning feeling in the bladder or urethra during urination. Older women and men are more likely to be tired, shaky, and weak and have muscle aches and abdominal pain. A fever may mean the infection is in your kidneys. Other symptoms of a kidney infection include pain in your back or sides below the ribs, nausea, and vomiting. DIAGNOSIS To diagnose a UTI, your caregiver will ask you about your symptoms. Your caregiver also will ask toprovide a urine sample. The urine sample will be tested for bacteria and white blood cells. White blood cells are made by your body to help fight infection. TREATMENT Typically, UTIs can be treated with medication. Because most UTIs are caused by a bacterial infection, they usually can be treated with the use of antibiotics. The choice of antibiotic and length of treatment depend on your symptoms and the type of bacteria causing your infection. HOME CARE INSTRUCTIONS ?? If you were prescribed antibiotics, take them exactly as your caregiver instructs you. Finish the medication even if you feel better after you have only taken some of the medication. ?? Drink enough water and fluids to keep your urine clear or pale yellow. ?? Avoid caffeine, tea, and carbonated beverages. They tend to irritate your bladder. ?? Empty your bladder often. Avoid holding urine for long periods of time. ?? Empty your bladder before and after sexual intercourse. ?? After a bowel movement, women should cleanse from front to back. Use each tissue only once. SEEK MEDICAL CARE IF: ?? You have back pain. ?? You develop a fever. ?? Your symptoms do not begin to resolve within 3 days. SEEK IMMEDIATE MEDICAL CARE IF: ?? You have severe back pain or lower abdominal pain. ?? You develop chills. ?? You have nausea or vomiting. ?? You have continued burning or discomfort with urination. MAKE SURE YOU: ?? Understand these instructions. ?? Will watch your condition. ?? Will get help right away if you are not doing well or get worse. Document Released: 01/16/2006 Document Revised: 10/07/2012 Document Reviewed: 05/16/2012 ExitCare?? Patient Information ??2015 [employer]igePrint. This information is not intended to replace advice given to you by your health care provider. Make sure you discuss any questions you have with your health care provider. [employer]IVE V[employer]IDENT [employer] SALES documented in this encounter Medications at Time of Discharge Medication Sig Dispensed Refills Start Date End Date DULoxetine (CYMBALTA) 60 MG capsule Take 60 mg by mouth once daily Takes with 30 mg (total daily dose: 90 mg) hyoscyamine, disintergrating, (NULEV) 0.125 MG tablet Take 1 Tab by mouth every 3 hours as needed (abd pain) 30 Tab 0 08/05/2015 linaclotide (LINZESS) 145 MCG capsule Take 1 Cap by mouth daily before breakfast Take on an empty stomach at least 30 minutes prior to first meal of the day. 30 Cap 3 09/15/2015 ondansetron, disintegrating, (ZOFRAN ODT) 4 MG tabletIndications:Migra ine without aura and without status migrainosus, not intractable Dissolve 4 mg under the tongue every 12 hours as needed 11/14/2015 pantoprazole EC (PROTONIX) 40 MG tabletIndications:Gener alized abdominal pain TAKE 1 TABLET BY MOUTH TWICE DAILY BEFORE BREAKFAST AND DINNER 60 Tab 3 12/21/2015 SUMAtriptan Succinate 6 MG/0.5MLIndications:Doron samuel without aura and without status migrainosus, not intractable 1 injection at onset of migraine, may repeat 1 hour later if needed. Max 2 injections per 24 hours 0 11/07/2015 ALPRAZolam (XANAX) 0.25 MG tablet Take 0.25 mg by mouth 3 times daily as needed for Anxiety Reported on 07/03/2016 01/29/2017 butalbital-acetaminophe n-caffeine (FIORICET) 50-325-40 MG tabletIndications:Migra ine without aura and without status migrainosus, not intractable 1 Tab every 4 hours as needed for Headache Reported on 07/03/2016 90 Tab 1 11/19/2015 01/29/2017 cyclobenzaprine (FLEXERIL) 5 MG tablet Take 5 mg by mouth 3 times daily as needed 01/29/2017 HYDROcodone-acetaminoph en (NORCO) 5-325 MG tablet Take 1 Tab by mouth every 4 hours as needed for Pain 15 Tab 05/17/2016 01/29/2017 hydroxychloroquine (PLAQUENIL) 200 MG tabletIndications:Rheum atoid arthritis involving multiple sites, unspecified rheumatoid factor presence (HCC) 1 Tab once daily Reported on 07/03/2016 11/06/2015 01/29/2017 loperamide (IMODIUM) 2 MG capsule Take 1 Cap by mouth 4 times daily as needed for Diarrhea 30 Cap 0 07/16/2015 01/29/2017 melatonin 3 MG tablet Take 5 mg by mouth at bedtime 01/29/2017 pantoprazole EC (PROTONIX) 40 MG tabletIndications:Gastr oesophageal reflux disease, esophagitis presence not specified TAKE 1 TABLET BY MOUTH TWICE DAILY BEFORE BREAKFAST AND DINNER 180 Tab 1 09/30/2015 07/03/2016 raNITIdine (ZANTAC) 150 MG tabletIndications:Gastr itis, presence of bleeding unspecified, unspecified chronicity, unspecified gastritis type Take 1 Tab by mouth 2 times daily 60 Tab 3 04/25/2016 01/29/2017 sucralfate (CARAFATE) 1 GM/10ML suspensionIndications:G astritis, presence of bleeding unspecified, unspecified chronicity, unspecified gastritis type Take 10 mL by mouth 4 times daily - before meals & nightly 420 mL 1 04/25/2016 06/12/2016 sulfamethoxazole-trimet hoprim (BACTRIM DS; SEPTRA DS) 800-160 MG tablet Take 1 Tab by mouth 2 times daily for 7 days 14 Tab 05/17/2016 05/24/2016 documented as of this encounter ED Notes * Debbie Young RN - 05/17/2016 7:48 PM CST Pt verbalizes understanding of discharge instructions, follow-up care, and prescribed medications. Pt escorted to car via wheelchair by this RN. UTIVE VICE PRESIDENT [employer] SALES * Debbie Young RN - 05/17/2016 7:38 PM CST Pt escorted to bathroom via wheelchair. UTIVE VICE PRESIDENT OF SALES * Debbie Young RN - 05/17/2016 7:[address] Mcclure to bedside to update pt on plan of care. UTIVE VICE PRESIDENT OF SALES * Debbie Young RN - 05/17/2016 7:17 PM CST Bedside report received from Indira Rao RN. Will assume care for pt at this time. Pt resting quietly with at bedside, complains of 0/10 pain at this time. Will continue to monitor. UTIVE VICE PRESIDENT OF SALES * Prerna Min RN - 05/17/2016 5:43 PM CST Antibiotics hung as ordered. Patient updated on plan of care. UTIVE VICE PRESIDENT OF SALES * Eleno Mcclure DO - 05/17/2016 4:30 PM CST Provider contact with the patient: 05/17/2016 16:30 Madalyn Walton [id number] [facility] History Chief Complaint Patient presents with ??? Pain Flank right side - began yesterday - has hx of kidney stones HPI Comments: Madalyn Walton is a 40 y.o. female presenting to the ED with a chief complaint of intermittent left flank pain that is sharp and stabbing and began yesterday. The pain does sometimes radiate into her left abdomen and left groin area. She also has had some nausea. Denies any vomiting. Shesays this pain does feel similar to previous kidney stones. She does not think she passed on yet bec ause she said last time it felt like she had a rock in her bladder and she has not felt that yet.Her is coming to pick her up. She is on methotrexate for rheumatoid arthritis. General The history is provided by the patient. This is a new problem. The current episode started yesterday. The problem occurs constantly. The problem has not changed since onset.The pain is moderate. BodyLocation: left flank.Associated symptoms include abdominal pain. Pertinent negatives include no chest pain, no headaches and no shortness of breath. Nothing aggravates the symptoms. Nothing relieves the symptoms. She has tried nothing for the symptoms. Past Medical History Diagnosis Date ??? Anxiety ??? Arthritis ??? Diverticulitis ??? Meredith-Danlos syndrome ??? Gastritis ??? Kidney stones ??? Migraine ??? Smoker e cigarettes ??? Ulcer Past Surgical History Procedure Laterality Date ??? Acl reconstruction Bilateral ??? Endoscopy, colon, diagnostic ??? Tonsillectomy ??? Endoscopy, upper N/A 07/15/2015 N/A; ESOPHAGOGASTRODUODENOSCOPY (EGD) ??? Endoscopy, upper 07/15/2015 ENDOSCOPY GI UPPER WITH BIOPSY ??? Endoscopy, upper N/A 08/03/2015 N/A; ESOPHAGOGASTRODUODENOSCOPY (EGD) ??? Endoscopy, upper 08/03/2015 ENDOSCOPY GI UPPER WITH BIOPSY ??? Colonoscopy N/A 08/04/2015 N/A; COLONOSCOPY SCREEN ??? Colonoscopy with polypectomy 08/04/2015 COLONOSCOPY WITH REMOVAL OF TUMOR OR POLYP BY SNARE TECHNIQUE ??? Gastroenterology procedure 08/04/2015 GASTROINTESTINAL TRACT IMAGING INTRALUMINAL ESOPHAGUS THROUGH ILEUM ??? Colonoscopy N/A 12/15/2015 Normal exam; Dr. Corona ??? Colonoscopy with biopsy 12/15/2015 COLONOSCOPY BIOPSY ??? Endoscopy, upper N/A 04/06/2016 neg h pylori, gabriele ??? Endoscopy, upper 04/06/2016 ENDOSCOPY GI UPPER WITH BIOPSY Family History Problem Relation Age of Onset ??? Osteoarthritis Father History Social History ??? Marital status: Spouse name: N/A ??? Number of children: N/A ??? Years of education: N/A Occupational History ??? Not on file. Social History Main Topics ??? Smoking status: Current Every Day Smoker Types: Cigarettes Last attempt to quit: 05/23/2012 ??? Smokeless tobacco: Never Used Comment: e-cigarette ??? Alcohol use: 0.0 oz/week 0 Standard drinks or equivalent per week Comment: rare ??? Drug use: No ??? Sexual activity: Yes Partners: Male Other Topics Concern ??? Not on file Social History Narrative Allergies Allergen Reactions ??? Ibuprofen Other Stomach ulcers Review of Systems Review of Systems Constitutional: Negative. Negative for chills, diaphoresis and fever. HENT: Negative. Negative for congestion, ear pain and sore throat. Eyes: Negative. Negative for blurred vision, pain, discharge and redness. Respiratory: Negative. Negative for cough, shortness of breath and wheezing. Cardiovascular: Negative. Negative for chest pain and leg swelling. Gastrointestinal: Positive for abdominal pain and nausea. Negative for blood in stool, constipation, diarrhea, heartburn and vomiting. Genitourinary: Positive for flank pain. Negative for dysuria and frequency. Musculoskeletal: Negative for back pain and myalgias. Skin: Negative. Negative for rash. Neurological: Negative. Negative for dizziness, tremors, focal weakness, seizures, loss of consciousness and headaches. Endo/Heme/Allergies: Negative. Does not bruise/bleed easily. Psychiatric/Behavioral: Negative. The patient is not nervous/anxious. All other systems reviewed and are negative. Physical Exam Blood pressure 118/55, pulse 91, temperature 98.5 ??F, resp. rate 20, height 1.651 m (5' 5 ), weight 83.9 kg (185 lb), SpO2 100 %. Physical Exam Constitutional: She is oriented to person, place, and time. She appears well- developed and well-nourished. No distress. HENT: Head: Normocephalic and atraumatic. Right Ear: External ear normal. Left Ear: External ear normal. Nose: Nose normal. Mouth/Throat: Oropharynx is clear and moist. Eyes: Conjunctivae and EOM are normal. Pupils are equal, round, and reactive to light. No scleral icterus. Neck: Normal range of motion. Neck supple. No tracheal deviation present. Cardiovascular: Normal rate, regular rhythm, normal heart sounds and intact distal pulses. No murmur heard. Pulses: Radial pulses are 2+ on the right side, and 2+ on the left side. Femoral pulses are 2+ on the right side, and 2+ on the left side. Dorsalis pedis pulses are 2+ on the right side, and 2+ on the left side. Pulmonary/Chest: Effort normal and breath sounds normal. No respiratory distress. She has no wheezes. She has no rales. She exhibits no tenderness. Abdominal: Soft. Bowel sounds are normal. She exhibits no distension. There is no tenderness. Thereis CVA tenderness (left). Musculoskeletal: Normal range of motion. She exhibits no edema or tenderness. Neurological: She is alert and oriented to person, place, and time. She has normal reflexes. No cranial nerve deficit. Skin: Skin is warm and dry. No rash noted. She is not diaphoretic. No erythema. Psychiatric: She has a normal mood and affect. Her behavior is normal. Judgment and thought contentnormal. Nursing note and vitals reviewed. Medications Current Outpatient Prescriptions Medication Sig Dispense Refill ??? HYDROcodone-acetaminophen (NORCO) 5-325 MG tablet Take 1 Tab by mouth every 4 hours as needed for Pain 15 Tab 0 ??? sulfamethoxazole-trimethoprim (BACTRIM DS; SEPTRA DS) 800-160 MG tablet Take 1 Tab by mouth 2 times daily for 7 days 14 Tab 0 ??? raNITIdine (ZANTAC) 150 MG tablet Take 1 Tab by mouth 2 times daily 60 Tab 3 ? ? sucralfate (CARAFATE) 1 GM/10ML suspension Take 10 mL by mouth 4 times daily - before meals & nightly 420 mL 1 ??? pantoprazole EC (PROTONIX) 40 MG tablet TAKE 1 TABLET BY MOUTH TWICE DAILY BEFORE BREAKFAST ANDDINNER 60 Tab 3 ??? cyclobenzaprine (FLEXERIL) 5 MG tablet Take 5 mg by mouth 3 times daily as needed ??? melatonin 3 MG tablet Take 5 mg by mouth at bedtime ??? mlpnspbmhd-qosasutqrxrwc-qnttkbsm (FIORICET) 50-325-40 MG tablet 1 Tab every 4 hours as needed for Headache Reported on 03/13/2016 90 Tab 1 ??? hydroxychloroquine (PLAQUENIL) 200 MG tablet 1 Tab once daily Reported on 04/06/2016 ??? ondansetron, disintegrating, (ZOFRAN ODT) 4 MG tablet 1 Tab 2 times daily as needed ??? SUMAtriptan Succinate 6 MG/0.5ML 1 injection at onset of migraine, may repeat 1 hour later if needed. Max 2 injections per 24 hours 0 ??? pantoprazole EC (PROTONIX) 40 MG tablet TAKE 1 TABLET BY MOUTH TWICE DAILY BEFORE BREAKFAST ANDDINNER 180 Tab 1 ??? linaclotide (LINZESS) 145 MCG capsule Take 1 Cap by mouth daily before breakfast Take on an empty stomach at least 30 minutes prior to first meal of the day. 30 Cap 3 ??? ALPRAZolam (XANAX) 0.25 MG tablet Take 0.25 mg by mouth 3 times daily as needed for Anxiety Reported on 04/06/2016 ??? hyoscyamine, disintergrating, (NULEV) 0.125 MG tablet Take 1 Tab by mouth every 3 hours as needed (abd pain) 30 Tab 0 ??? loperamide (IMODIUM) 2 MG capsule Take 1 Cap by mouth 4 times daily as needed for Diarrhea 30 Cap 0 ??? DULoxetine (CYMBALTA) 60 MG capsule Take 60 mg by mouth once daily Procedures Procedures - None ECG Interpretation ECG Interpretation Lab Interpretation Oxygen Saturation Interpretation The oxygen saturation level is: 100%. The patient was on Room Air for the saturation measurement. Measurement frequency: Spot Check. Oxygen saturation interpretation is Normal. Intervention(s) used: None. Hospital Encounter on 05/17/16 CBC W AUTO DIFFERENTIAL Result Value Ref Range WBC 9.1 4.4 - 10.7 x10E9/L WBC Corrected x10E9/L RBC 4.70 3.80 - 5.20 x10E12/L Hgb 13.2 12.0 - 15.6 gm/dL HCT 41.3 35.9 - 45.5 % MCV 87.9 80.7 - 98.3 fl MCH 28.1 26.7 - 34.0 pg MCHC 32.0 30.8 - 35.9 gm/dL Plt Ct 305 153 - 416 x10E9/L RDW-CV 15.5 (H) 12.1 - 14.9 % MPV 8.6 (L) 9.4 - 12.9 fl Neutro 73.6 (H) 44.0 - 73.0 % Lymph 20.8 20.0 - 43.0 % [place] 3.4 (L) 5.0 - 13.0 % Eos 0.6 0.0 - 6.0 % Baso 1.0 0.0 - 2.0 % Immature Grans 0.6 0 - 1 % Neutro Abs 6.68 2.01 - 7.14 x10E9/L Lymph Abs 1.88 1.07 - 3.94 x10E9/L [place] Abs 0.31 0.26 - 1.07 x10E9/L Eosin Abs 0.05 0 - 0.47 x10E9/L Baso Abs 0.09 (H) 0 - 0.08 x10E9/L Immature Grans (Abs) 0.05 0.00 - 0.06 x10E9/L NRBC Auto 0 /100 WBC COMPREHENSIVE METABOLIC PANEL Result Value Ref Range Glucose 89 74 - 106 mg/dL Sodium 141 136 - 145 mmol/L Potassium 4.5 3.5 - 5.1 mmol/L Chloride 109 (H) 98 - 107 mmol/L CO2 23 22 - 31 mmol/L Calcium 8.7 8.5 - 10.1 mg/dL Anion Gap 9 8 - 16 mmol/L BUN 14 7 - 21 mg/dL Creatinine 0.97 0.50 - 1.30 mg/dL Alk Phos 72 38 - 126 U/L ALT/SGPT 23 13 - 61 U/L AST/SGOT 6 5 - 40 U/L Protein Total 7.3 6.4 - 8.2 gm/dL Albumin 3.5 3.4 - 5.0 gm/dL Bili Total 0.3 0.2 - 1.0 mg/dL eGFR MDRD >60 >60 mL/min/1.73m2 eGFR MDRD AFR AMR >60 >60 mL/min/1.73m2 URINALYSIS ROUTINE W/REFLEX TO CULTURE Result Value Ref Range Color UA Yellow Straw, Yellow, Dark Yellow Clarity UA Clear Specific [place] UA 1.020 1.005 - 1.030 pH UA 6.5 5.0 - 8.0 pH Protein UA Negative Negative Blood UA Negative Negative Leukocyte UA 2+ (Abnormal) Negative Nitrite UA Negative Negative Glucose UA Negative Negative Ketone UA Negative Negative Bili UA Negative Negative Urobilinogen UA 0.2 0.1 - 1.0 EU/dL WBC UA Auto 5-10 (Abnormal) 0-2, 2-5 # /hpf RBC UA Auto 2-5 0-2, 2-5 # /hpf Epithelial Cell UA Auto 5-10 (Abnormal) 0-2, 2-5 # /hpf Bacteria UA Auto 1+ (Abnormal) None seen Reflex Status Culture to follow HCG URINE QUALITATIVE - POINT OF CARE (IP) Result Value Ref Range HCG Qual Urine Negative Negative QC Verified Yes Yes CT RENAL STONE PROTOCOL (NO IV AND NO ORAL CONTRAST) Final Result CT abdomen and pelvis without contrast Technique: Multislice helical was performed without contrast. History: Renal stone protocol. Findings: No focal consolidation is seen in the lung bases. There is no evidence of pleural effusion. The heart is normal in size. No pericardial effusion is seen. No focal intrahepatic lesions are identified. The gallbladder appears contracted. There are numerous bilateral calcific densities seen within the kidneys. The largest within the right kidney measures approximately 4 mm. The largest in the left kidney measures approximately 5 mm. There is no evidence of hydronephrosis. No hydroureter is seen. No calcific density is identified within the ureters to represent ureterolithiasis. There are numerous punctate calcified granulomas throughout the spleen. The adrenal glands appear normal. The pancreas also appears normal. The urinary bladder is not fully distended. The uterus and bilateral adnexa appear normal. Scattered colonic diverticulosis is seen within the descending colon and sigmoid colon without evidence of acute diverticulitis. There is no evidence of bowel obstruction. No intraperitoneal free air is seen. No mesenteric or retroperitoneal lymphadenopathy is noted. There is no free fluid within the pelvis. Bone windows demonstrate no lytic or blastic lesions. Mild degenerative changes are seen in the lower spine. IMPRESSION 1. Multiple bilateral renal calculi seen within the kidneys without evidence of hydronephrosis or hydroureter. The largest calculus on the right measures approximately 4 mm and the largest on the left approximately 5 mm. Progress Notes 4:30PM The patient was informed that her CT does show some very small kidney stones. Will manage pain control for the patient, and then she will be dishcarged. 7:30PM The patient's pain has resolved on reevaluation. 7:36 PM Rechecked pt -patient resting comfortably and feeling better. I discussed the results of diagnostic studies, my clinical impression, and the plan for further treatment with the patient. Patient agrees with plan and discharge at this time, all questions addressed. Pt is medically stable for discharge at this time. I have given the patient instructions regarding her diagnosis, expectations, follow up, and return precautions. I explained to the patient that emergent conditions may arise and to return to the ER for new, worsening, or any persistent conditions. I've explained the importance of following up with her Primary Care Physician-(or the referral physician listed below) as instructed. The patient verbalized understanding of the discharge instructions. I had a formal disposition interview with the patient/family to discuss the ED visit and disposition plan. ED Course ED Course There is no data filed. Medical Decision Making I have reviewed the: Previous Chart, Nursing Notes, Vitals. I have interpreted the following results: Labs, CT Scans and Oxygen Saturation. CT negative. Pain resolved. UA contaminated but will treat in light of urinary symptoms. Abx started. Call from pharmacy stating that the patient filled 100 tabs of Oxycodone earlier this month and thus the prescription for norco was cancelled. Orders Placed This Encounter ??? CULTURE URINE ??? CT RENAL STONE PROTOCOL (NO IV AND NO ORAL CONTRAST) ??? CBC W AUTO DIFFERENTIAL ??? COMPREHENSIVE METABOLIC PANEL ??? URINALYSIS ROUTINE W/REFLEX TO CULTURE ??? HCG URINE QUALITATIVE - POINT OF CARE (IP) ??? 0.9% NaCl injection 1-10 mL ??? DISCONTD: ketorolac (TORADOL) injection 60 mg ??? ketorolac (TORADOL) injection 30 mg ??? morphine injection 4 mg ??? cefTRIAXone (ROCEPHIN) IVPB 1,000 mg ??? HYDROmorphone (DILAUDID) injection 1 mg ??? HYDROcodone-acetaminophen (NORCO) 5-325 MG tablet ??? sulfamethoxazole-trimethoprim (BACTRIM DS; SEPTRA DS) 800-160 MG tablet Clinical Impression Final diagnoses: Flank pain (Primary) Urinary tract infection with hematuria, site unspecified Nephrolithiasis New Medications: New Prescriptions HYDROCODONE-ACETAMINOPHEN (NORCO) 5-325 MG TABLET Take 1 Tab by mouth every 4 hours as needed for Pain SULFAMETHOXAZOLE-TRIMETHOPRIM (BACTRIM DS; SEPTRA DS) 800-160 MG TABLET Take 1 Tab by mouth 2 timesdaily for 7 days I have advised the patient to follow-up with: Feliciano Dash MD [address] [address] [address] [facility] [address] [phone] Call in 1 day If symptoms worsen [place] [address] [place] [address] [facility] [address] Call in 1 day If symptoms worsen return to the emergency department Edgardo Baer MD [address] [facility] [address] [facility] [address] In 1 day If symptoms worsen return to the emergency department Disposition: Discharged By signing my name below, I, Rosa Chavez, attest that this documentation has been prepared under the direction and in the presence of Dr. Ren DO. Electronically Signed: Bradley Ba. 05/17/2016 7:37 PM I, Dr. Ren DO, personally performed the services described in this documentation. All medical record entries made by the scribe were at my direction and in my presence. I have reviewed the chart and discharge instructions and agree that the record reflects my personal performance and is accurateand complete. Dr. Mcclure, 05/17/2016 7:37 PM [employer] * Prerna Min RN - 05/17/2016 3:57 PM CST Patient into ED with c/o bilateral flank pain. Patient reports history of kidney stones. Patient reports her symptoms began yesterday and her PCP instructed her to come here. Patient denies any hematuria. Patient states frequency with urination. Report nausea, denies vomiting or diarrhea. VSS. Willcontinue to monitor patient. [employer] documented in this encounter Plan of Treatment Not on file documented as of this encounter Goals Goal Patient Goal Type Associated Problems Recent Progress Patient-Stated? Author Yearly PCP visit Lifestyle No Rukhsana Lazo MA documented as of this encounter Procedures Procedure Name Priority Date/Time Associated Diagnosis Comments CT ABDOMEN PELVIS WO CONTRAST STAT 05/17/2016 1:00 PM [employer] Flank pain URINALYSIS REFLEX MICROSCOPIC REFLEX CULTURE STAT 05/17/2016 12:49 PM [employer] HCG URINE QUALITATIVE - POINT OF CARE STAT 05/17/2016 12:49 PM [employer] CULTURE URINE STAT 05/17/2016 12:49 PM [employer] CBC W AUTO DIFFERENTIAL STAT 05/17/2016 12:14 PM [employer] COMPREHENSIVE METABOLIC PANEL STAT 05/17/2016 12:14 PM [employer] documented in this encounter Results * CT RENAL STONE PROTOCOL (NO IV AND NO ORAL CONTRAST) (05/17/2016 1:00 PM [employer]) Anatomical Region Laterality Modality Abdomen, Pelvis Computed Tomogra phy 05/17/2016 1:14 PM [employer] Impressions 05/17/2016 1:19 PM [employer] 1. Multiple bilateral renal calculi seen within the kidneys without evidence of hydronephrosis or hydroureter. The largest calculus on the right measures approximately 4 mm and the largest on the left approximately 5 mm. Narrative 05/17/2016 1:19 PM [employer] CT abdomen and pelvis without contrast Technique: Multislice helical was performed without contrast. History: Renal stone protocol. Findings: No focal consolidation is seen in the lung bases. There is no evidence of pleural effusion. The heart is normal in size. No pericardial effusion is seen. No focal intrahepatic lesions are identified. The gallbladder appears contracted. There are numerous bilateral calcific densities seen within the kidneys. The largest within the right kidney measures approximately 4 mm. The largest in the left kidney measures approximately 5 mm. There is no evidence of hydronephrosis. No hydroureter is seen. No calcific density is identified within the ureters to represent ureterolithiasis. There are numerous punctate calcified granulomas throughout the spleen. The adrenal glands appear normal. The pancreas also appears normal. The urinary bladder is not fully distended. The uterus and bilateral adnexa appear normal. Scattered colonic diverticulosis is seen within the descending colon and sigmoid colon without evidence of acute diverticulitis. There is no evidence of bowel obstruction. No intraperitoneal free air is seen. No mesenteric or retroperitoneal lymphadenopathy is noted. There is no free fluid within the pelvis. Bone windows demonstrate no lytic or blastic lesions. Mild degenerative changes are seen in the lower spine. Procedure Note Shahzad Sanchez MD - 05/17/2016 CT abdomen and pelvis without contrast Technique: Multislice helical was performed without contrast. History: Renal stone protocol. Findings: No focal consolidation is seen in the lung bases. There is no evidence of pleural effusion. The heart is normal in size. No pericardial effusion is seen. No focal intrahepatic lesions are identified. The gallbladder appears contracted. There are numerous bilateral calcific densities seen within the kidneys. The largest within the right kidney measures approximately 4 mm. The largest in the left kidney measures approximately 5 mm. There is no evidence of hydronephrosis. No hydroureter is seen. No calcific density is identified within the ureters to represent ureterolithiasis. There are numerous punctate calcified granulomas throughout the spleen. The adrenal glands appear normal. The pancreas also appears normal. The urinary bladder is not fully distended. The uterus and bilateral adnexa appear normal. Scattered colonic diverticulosis is seen within the descending colon and sigmoid colon without evidence of acute diverticulitis. There is no evidence of bowel obstruction. No intraperitoneal free air is seen. No mesenteric or retroperitoneal lymphadenopathy is noted. There is no free fluid within the pelvis. Bone windows demonstrate no lytic or blastic lesions. Mild degenerative changes are seen in the lower spine. IMPRESSION 1. Multiple bilateral renal calculi seen within the kidneys without evidence of hydronephrosis or hydroureter. The largest calculus on the right measures approximately 4 mm and the largest on the left approximately [address] ORDERABLES * CULTURE URINE (05/17/2016 12:49 PM [employer]) Culture 10,000-50,000 CFU/mL urogenital adelso CARLOS EDUARDO 05/18/2016 3:24 PM [employer] [facility] Urine URINE SPECIMEN OBTAINED BY CLEAN CATCH PROCEDURE / Unknown Collection / Unknown 05/17/2016 12:49 PM [employer] 05/17/2016 12:56 PM [employer] Eleno Mcclure DO LAB - MICROBIOLOGY O RDERABLES [facility] [address] [place] [phone] * HCG URINE QUALITATIVE - POINT OF CARE (IP) (05/17/2016 12:49 PM [employer]) HCG Qual Urine Negative Negative [facility] QC Verified Yes Yes [facility] POC T TESTING Urine URINE / Unknown 05/17/2016 1 2:49 PM [employer] Eleno Mcclure DO LAB - POINT OF CARE ORDERABLES Performing Organization Address [facility]/ZIP Co de Phone Number [facility] [address] [phone] * (ABNORMAL) URINALYSIS ROUTINE W/REFLEX TO CULTURE (05/17/2016 12:49 PM [employer]) Color UA Yellow Straw, Yellow, Dark Yellow 05/17/2016 1:08 PM [employer] [facility] Clarity UA Clear 05/17/2016 1:08 PM [employer] [facility] Specific [place] UA 1.020 1.005 - 1.030 05/17/2016 1:08 PM [employer] [facility] pH UA 6.5 5.0 - 8.0 pH 05/17/2016 1:08 PM [employer] [facility] Protein UA Negative Negative 05/17/2016 1:08 PM [employer] [facility] Blood UA Negative Negative 05/17/2016 1:08 PM [employer] [facility] Leukocyte UA 2+(A) Negative 05/17/2016 1:08 PM [employer] [facility] Nitrite UA Negative Negative 05/17/2016 1:08 PM [employer] [facility] Glucose UA Negative Negative 05/17/2016 1:08 PM [employer] [facility] Ketone UA Negative Negative 05/17/2016 1:08 PM [employer] [facility] Bilirubin UA Negative Negative 05/17/2016 1:08 PM [employer] [facility] Urobilinogen UA 0.2 0.1 - 1.0 EU/dL 05/17/2016 1:[address] [facility] WBC UA Auto 5-10(A) 0-2, 2-5 # /hpf 05/17/2016 1:[address] [facility] RBC UA Auto 2-5 0-2, 2-5 # /hpf 05/17/2016 1:[address] [facility] Epithelial Cell UA Auto 5-10(A) 0-2, 2-5 # /hpf 05/17/2016 1:[address] [facility] Bacteria UA Auto 1+(A) None seen 05/17/19 17 1:[address] [facility] Reflex Status Culture to follow 05/17/2016 1:[address] [facility] Urine URINE SPECIMEN OBTAINED BY CLEAN CATCH PROCEDURE / Unknown Collection / Unknown 05/17/2016 12:49 PM [employer] 05/17/2016 12:56 PM [facility] Eleno Mcclure DO LAB - URINALYSIS ORD ERABLES [facility] [address] [place] [address] * (ABNORMAL) COMPREHENSIVE METABOLIC PANEL (05/17/2016 12:14 PM [facility]) Glucose 89 74 - 106 mg/dL 05/17/2016 12:[address] [facility] Sodium 141 136 - 145 mmol/L 05/17/2016 12:[address] [facility] Potassium 4.5 3.5 - 5.1 mmol/L 05/17/2016 12:[address] [facility] Chloride 109(H) 98 - 107 mmol/L 05/17/2016 12:[address] [facility] CO2 23 22 - 31 mmol/L 05/17/2016 12:[address] [facility] Calcium 8.7 8.5 - 10.1 mg/dL 05/17/2016 12:[address] [facility] Anion Gap 9 8 - 16 mmol/L 05/17/2016 12:[address] [facility] BUN 14 7 - 21 mg/dL 05/17/2016 12:[address] [facility] Creatinine 0.97 0.50 - 1.30 mg/dL 05/17/2016 12:[address] [facility] Alkaline Phosphatase 72 38 - 126 U/L 05/17/2016 12:[address] [facility] ALT 23 13 - 61 U/L 05/17/2016 12:[address] [facility] AST 6 5 - 40 U/L 05/17/2016 12:[address] [facility] Protein Total 7.3 6.4 - 8.2 gm/dL 05/17/2016 12:[address] [facility] Albumin 3.5 3.4 - 5.0 gm/dL 05/17/2016 12:[address] [facility] Bilirubin Total 0.3 0.2 - 1.0 mg/dL 05/17/2016 12:[address] [facility] eGFR by MDRD >60 >60 mL/min/1.7 3m2 05/17/2016 12:[address] [facility] eGFR by MDRD >60 >60 mL/min/1.7 3m2 05/17/2016 12:[address] [facility] Blood BLOOD SPECIMEN / Unknown Venipuncture / Unknown 05/17/2016 12:14 PM [employer] 05/17/2016 12:23 PM [facility] Eleno Mcclure DO LAB - CHEMISTRY MORGAN YEE [facility] [address] [place], [place] [id number] * (ABNORMAL) CBC W AUTO DIFFERENTIAL (05/17/2016 12:14 PM [employer]) WBC 9.1 4.4 - 10.7 x10E9/L 05/17/2016 12:[address] [facility] WBC Corrected x10E9/L 05/17/2016 12:[address] [facility] RBC 4.70 3.80 - 5.20 x10E12/L 05/17/2016 12:[address] [facility] Hemoglobin 13.2 12.0 - 15.6 gm/dL 05/17/2016 12:[address] [facility] Hematocrit 41.3 35.9 - 45.5 % 05/17/2016 12:[address] [facility] MCV 87.9 80.7 - 98.3 fl 05/17/2016 12:[address] [facility] MCH 28.1 26.7 - 34.0 pg 05/17/2016 12:[address] [facility] MCHC 32.0 30.8 - 35.9 gm/dL 05/17/2016 12:[address] [facility] Platelet Count 305 153 - 416 x10E9/L 05/17/2016 12:[address] [facility] RDW-CV 15.5(H) 12.1 - 14.9 % 05/17/2016 12:[address] [facility] MPV 8.6(L) 9.4 - 12.9 fl 05/17/2016 12:[address] [facility] Neutrophils % 73.6(H) 44.0 - 73.0 % 05/17/2016 12:[address] [facility] Lymphocytes % 20.8 20.0 - 43.0 % 05/17/2016 12:[address] [facility] Monocytes % 3.4(L) 5.0 - 13.0 % 05/17/2016 12:[address] [facility] Eosinophils % 0.6 0.0 - 6.0 % 05/17/2016 12:[address] [facility] Basophils % 1.0 0.0 - 2.0 % 05/17/2016 12:[address] [facility] Immature Granulocytes 0.6 0 - 1 % 05/17/2016 12:[address] [facility] Neutrophil Absolute 6.68 2.01 - 7.14 x10E9/L 05/17/2016 12:[address] [facility] Lymphocytes Absolute 1.88 1.07 - 3.94 x10E9/L 05/17/2016 12:[address] [facility] Monocytes Absolute 0.31 0.26 - 1.07 x10E9/L 05/17/2016 12:[address] [facility] Eosinophils Absolute 0.05 0 - 0.47 x10E9/L 05/17/2016 12:[address] [facility] Basophils Absolute 0.09(H) 0 - 0.08 x10E9/L 05/17/2016 12:[address] [facility] Immature Granulocytes Absolute 0.05 0.00 - 0.06 x10E9/L 05/17/2016 12:[address] [facility] nRBC Auto 0 /100 WBC 05/17/2016 12:22 PM [employer] [facility] Blood BLOOD SPECIMEN / Unknown Venipuncture / Unknown 05/17/2016 12:14 PM [employer] 05/17/2016 12:20 PM [employer] Eleno Sears Mcclure LAB - HEMATOLOGY ORD ERABLES [facility] [address] [place] [address] documented in this encounter Visit Diagnoses Diagnosis Flank pain- Primary Abdominal pain, unspecified site Urinary tract infection with hematuria, site unspecified Nephrolithiasis Calculus of kidney documented in this encounter Administered Medications Inactive Administered Medications - up to 3 most recent administrations Medication Order MAR Action Action Date Dose Rate Site 0.9% NaCl injection 1-10 mL 1-10 mL, Intracatheter, PRN, Other, Starting on Leydi 05/17/16 at 1107, Until Leydi 05/17/16 at 2049 cefTRIAXone (ROCEPHIN) IVPB 1,000 mg 1,000 mg (1 g), at 100 mL/hr, Intravenous, ONCE, 1 dose, On Leydi 05/17/16 at 1730 $ Given 05/17/2016 5:34 PM [employer] 1,000 mg 100 mL/hr HYDROmorphone (DILAUDID) injection 1 mg 1 mg, Intravenous, NOW, 1 dose, On Leydi 05/17/16 at 1845, Any ordered dose for greater than 1mg IV push of HYDROmorphone should be given incrementally $ Given 05/17/2016 7:05 PM [employer] 1 mg ketorolac (TORADOL) injection 30 mg 30 mg, Intravenous, NOW, 1 dose, On Leydi 05/17/16 at 1700 $ Given 05/17/2016 5:10 PM [employer] 30 mg morphine injection 4 mg 4 mg, Intravenous, NOW, 1 dose, On Leydi 05/17/16 at 1645 $ Given 05/17/2016 4:43 PM [employer] 4 mg documented in this encounter Active and Recently Administered Medications Times are shown in [employer]. Scheduled Medication Order 05/15/2016 05/16/2016 05/17/2016 cefTRIAXone (ROCEPHIN) IVPB 1,000 mg (COMPLETED) 1,000 mg (1 g), at 100 mL/hr, Intravenous, ONCE, 1 dose, On Leydi 05/17/16 at 1730 1734 ($ Given - Prov ider: Prerna Min, [id number] (Due: Rx Stopped - Provider: Prerna Min RN) HYDROmorphone (DILAUDID) injection 1 mg (COMPLETED) 1 mg, Intravenous, NOW, 1 dose, On Leydi 17 at 1845, Any ordered dose for greater than 1mg IV push of HYDROmorphone should be given incrementally 1905 ($ Given - Prov ider: Prerna Min RN) ketorolac (TORADOL) injection 30 mg (COMPLETED) 30 mg, Intravenous, NOW, 1 dose, On Leydi 05/17/16 at 1700 1710 ($ Given - Prov ider: Prerna Min RN) morphine injection 4 mg (COMPLETED) 4 mg, Intravenous, NOW, 1 dose, On Leydi 05/17/16 at 1645 1643 ($ Given - Prov ider: Prerna Min RN) PRN Medication Order 05/15/2016 05/16/2016 05/17/2016 0.9% NaCl injection 1-10 mL 1-10 mL, Intracatheter, PRN, Other, Starting on Leydi 05/17/16 at 1107, Until Leydi 05/17/16 at 2049 documented in this encounter Care Teams Repacker Relationship Specialty Start Date End Date Feliciano Dash MD [address] [facility] [address] [place] [id number] PCP - General Internal Medicine 12/15/15 06/11/21 Jonathan Hartman RN [employer] 07/14/15 documented as of this encounter
--- OUTSIDE RECORDS SUMMARY | 2024-04-29 19:19 | XMS_ITS | Encounter Summary ---
Author Organization [facility] Address [address] [facility] [place] [address] Care Team Providers Care Solar Project Manager Name Role Phone Minnie Jonathan Delaney RN Unavailable [phone] Feliciano Dash MD Primary Care Provider [phone] Reason for Visit * Auth/Cert Specialty Diagnoses / Procedures Referred By Kaylynn phillips Referred To Contact Diagnoses Epigastric pain Epigastric pain Procedures ESOPHAGOGASTRODUODENOSCOPY (EGD) Referral ID Status Reason Start Date Expiration Date Visits Re quested Visits Authorized [id number] 1 1 Encounter Details Date Type Department Care Team (Late st Contact Info) Description 04/06/2016 9:30 AM WARP BLEACHING VAT TENDER Anesthesia Event [facility] - End[facility] [address] [place] [address] Eyad Ortiz MD [address] [place] [address] Anesthesia Record Procedure Summary Procedure Name Responsible Anesthesiologist Anesthesia Start Time Anesthesia Stop Time ESOPHAGOGASTRODUODENOSCOPY (EGD) Eyad Garces MD 04/06/16 0930 04/06/16 0948 Events Date Time Event Comment 04/06/2016 0920 0930 An Start 0930 An Start Data 0930 PT Reassessment Patient and Vital Signs reassessed prior to induction. 0935 Elect Sign The providers l isted as staff are the responsible providers for the case. 0941 Time Out Anesthesia part icipated in timeout at the time documented in the record by nursing 0948 an stop data 0948 An Stop Meds Name Total lidocaine (XYLOCAINE) 2% injection (20 m g/ml) 50 mg fentaNYL 0.05 mg/ml injection 50 mcg propofol (DIPRIVAN) injection 10mg/ml (E NDO USE) 18 mL 0.9% NaCl infusion 200 mL * Agents Name O2 * Blood No blood administrations on file. Lines, Drains, and Airways Type Details Placement Removal Peripheral IV Date: 04/06/16; Time : 914; Orientation: Right; Placed By: andrew purvis rn; Tolerance: Well 04/06/16 0915 by Cheli Chun RN 04/06/16 1050 by Myranda Keys RN documented in this encounter Social History Tobacco Use Types Packs/Day Years [...] on file documented as of this encounter Functional Status Functional Status Response Date of Assess ment Is person deaf or have serious hearing difficult y? No 12/15/2015 Is person blind or have serious difficulty seein g? No 12/15/2015 Does person have serious dif ficulty walking/climbing stairs? No 12/15/2015 Does person have difficulty dressing/bathing? No 12/15/2015 Does person have difficulty doing errands alone? No 12/15/2015 Cognitive Status Response Date of Assessm ent Does person have difficulty concentrating/remembering/making decisions? No 12/15/2015 documented as of this encounter Progress Notes * Helen Adair, ANTIQUE REPAIRER-ORAL AND MAXILLOFACIAL SURGEON - 04/06/2016 9:57 AM CST ANESTHESIA POSTPROCEDURE EVALUATION Madalyn Walton is a 40 y.o. female Temp: 97.3 ??F Pulse: 96 BP: 134/91 SpO2: 98 % Pain Rating Score #1: 0 Anesthesia Type: MAC Mental status: sufficiently recovered from acute administration of anesthesia to participate in theevaluation and neurologic status has returned to preoperative level. Level of consciousness: awake No numbness, tingling or visual disturbances present. General appearance: well-appearing Respiratory function: natural airway. Cardiac: stable Pain: comfortable/acceptable PONV: None Postop hydration: adequate. Patient may be released from anesthesia care. Perioperative Complications: No value filed. ASA/AQI Tracking Events: No value filed. BLEACHING VAT TENDER documented in this encounter Consult Notes * Helen AdairRENEN-ORAL AND MAXILLOFACIAL SURGEON - 04/06/2016 9:19 AM CST Pre-anesthesia Evaluation Procedure(s): ESOPHAGOGASTRODUODENOSCOPY (EGD) (N/A ) Diagnosis: Epigastric pain [R10.13] Vital Signs: Temp: 97.3 ??F (04/06 912) Pulse: 96 (04/06 912) BP: 134/91 (04/06 912) SpO2: 98 % (04/06 912) BMI: Estimated body mass index is 29.05 kg/(m^2) as calculated from the following: Height as of this encounter: 1.676 m (5' 6 ). Weight as of this encounter: 81.6 kg (180 lb). History: Past Medical History Diagnosis Date ??? Anxiety [...] ??? Colonoscopy with biopsy 12/15/2015 COLONOSCOPY BIOPSY reports that she has been smoking Cigarettes. She has never used smokeless tobacco. She reports that she drinks alcohol. She reports that she does not use illicit drugs. Allergies: is allergic to ibuprofen. Medications: Home Medications for Outpatients: No current outpatient prescriptions on file. Home Medications for Inpatients: Prescriptions Prior to Admission Medication Sig Dispense Refill ??? cyclobenzaprine (FLEXERIL) 5 MG tablet Take 5 mg by mouth 3 times daily as needed ??? melatonin 3 MG tablet Take 5 mg by mouth at bedtime ??? ondansetron, disintegrating, (ZOFRAN ODT) 4 MG [...] of the day. 30 Cap 3 ??? hyoscyamine, disintergrating, (NULEV) 0.125 MG tablet Take 1 Tab by mouth every 3 hours as needed (abd pain) 30 Tab 0 ??? loperamide (IMODIUM) 2 MG capsule Take 1 Cap by mouth 4 times daily as needed for Diarrhea 30 Cap 0 ??? DULoxetine (CYMBALTA) 60 MG capsule Take 60 mg by mouth once daily ??? pantoprazole EC (PROTONIX) 40 MG tablet TAKE 1 TABLET BY MOUTH TWICE DAILY BEFORE BREAKFAST ANDDINNER 60 Tab 3 ??? wgzwukamdc-fczetyqhwfset-yyqbxfuq (FIORICET) 50-325-40 MG tablet 1 Tab every 4 hours as needed for Headache Reported on 03/13/2016 90 Tab 1 ??? hydroxychloroquine (PLAQUENIL) 200 MG tablet 1 Tab once daily Reported on 04/06/2016 ??? ALPRAZolam (XANAX) 0.25 MG tablet Take 0.25 mg by mouth 3 times daily as needed for Anxiety Reported on 04/06/2016 ? ? sucralfate (CARAFATE) 1 GM/10ML suspension Take 10 mL by mouth 4 times daily - before meals & nightly (Patient not taking: Reported on 11/18/2015) 420 mL 1 Inpatient Medications: Current Facility-Administered Medications Medication Dose Route Frequency Provider Last Rate Last Dose ??? 0.9% NaCl infusion Intravenous Continuous Armando Corona MD 20 mL/hr at 04/06/16 0918 Physical Exam: NPO status: no solids since midnight Oriented to person, place and time Airway: II (recessed chin) Neck ROM: full Dental exam findings: normal/ok Pulmonary exam: breath sounds CTA Heart sounds: S1 S2 Review of Systems: Negative for anesthesia complications Positive for gastroesophageal reflux disease, well controlled Plan for Anesthesia: Reviewed allergies, history and medications ASA Score: 2. Anesthesia plan: MAC Planned method of induction: intravenous Planned postop destination: endo Anesthesia plan, risks and benefits discussed with patient Anesthesia consent: obtained Plan accepted yes Discussed anesthesia plan with: anesthesiologist. Recent Labs Component Name 04/06/16 0850 HCGURINE Negative BLEACHING VAT TENDER documented in this encounter Plan of Treatment Not on file documented as of this encounter Goals Goal Patient Goal Type Associated Problems Recent Progress Patient-Stated? Author Yearly PCP visit Lifestyle No Rukhsana Lazo MA documented as of this encounter Visit Diagnoses Not on filedocumented in this encounter Administered Medications Inactive Administered Medications - up to 3 most recent administrations Medication Order MAR Action Action Date Dose Rate Site fentaNYL (PF) (SUBLIMAZE) injection PRN, Starting on Sat04/06/16 at 0942, Until Sat04/06/16 at 0948, Anesthesia Intra-op $ Given 04/06/2016 9:42 AM WARP BLEACHING VAT TENDER 50 mcg lidocaine (XYLOCAINE) 2 % injection PRN, Starting on Sat04/06/16 at 0942, Until Sat04/06/16 at 0948, Anesthesia Intra-op $ Given 04/06/2016 9:42 AM WARP BLEACHING VAT TENDER 50 mg propofol (DIPRIVAN) injection CONTINUOUS PRN, Starting on Sat04/06/16 at 0942, Until Sat04/06/16 at 0948, Anesthesia Intra-op $ New Bag/Syringe 04/06/2016 9:42 AM WARP BLEACHING VAT TENDER documented in this encounter Care Teams Solar Project Manager Relationship Specialty Start Date End Date Feliciano Dash MD [address] [facility] [address] [facility] [address] [place] [id number] PCP - General Internal Medicine 12/15/15 06/11/21 Jonathan Hartman RN Terminal Block Assembler 07/14/15 documented as of this encounter
--- OUTSIDE RECORDS SUMMARY | 2024-04-29 19:19 | XMS_ITS | Encounter Summary ---
Author Organization [facility] Address [address] [facility] [place] [address] Care Team Providers Care Hotel Or Motel Receptionist Name Role Phone Minnie Jonathan Delaney RN Unavailable [phone] Feliciano Dash MD Primary Care Provider [phone] Reason for Visit * Reason Comments Establish Care ED 3 weeks ago Hiata l hernia, pain sternal area 1 yr Encounter Details Date Type Department Care Team (Late st Contact Info) Description 03/13/2016 11:20 AM CHEMIST WATER PURIFICATION Office Visit [facility] - [address] [address] Armando Corona MD [address] [place] [id number] 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 syndrome with constipation (Primary Dx); Epigastric pain Social History Tobacco Use Types Packs/Day Years Used Date Smoking Tobacco: Former Cigarettes Q uit: 05/23/2012 Smokeless Tobacco: Current Comments:e-cigarette Alcohol Use Standard Drinks/Week Comments Yes 0 (1 standard drink = 0.6 oz pur e alcohol) occas Sex and Gender Information Value Date Recorded Sex Assigned at Not on file Gender Identity Female 01/29/2017 1:09 PM CDT Sexual Orientation Not on file documented as of this encounter Last Filed Vital Signs Vital Sign Reading Time Taken Comments Blood Pressure 116/82 03/13/2016 11:27 AM CHEMIST WATER PURIFICATION Pulse - - Temperature - - Respiratory Rate - - Oxygen Saturation - - Inhaled Oxygen Concentration - - Weight 84.7 kg (186 lb 12.8 oz) 016 11:27 AM CHEMIST WATER PURIFICATION Height 167.6 cm (5' 6 ) 03/13/2016 11:2 7 AM CHEMIST WATER PURIFICATION Body Mass Index 30.15 03/13/2016 11:27 AM CHEMIST WATER PURIFICATION documented in this encounter Functional Status Functional [...] No 12/15/2015 documented as of this encounter Patient Instructions * Patient Instructions* Curtis Garland I - 03/13/2016 11:25 AM CHEMIST WATER PURIFICATION During your visit, we noted a difference between the dose and/or dosing frequency of one of the following medication(s) documented in your record and the way you report that it is being taken. Pleasecontact the prescribing physician to verify the correct dose and instructions for the following: IST WATER PURIFICATION documented in this encounter Progress Notes * Armando Corona MD - 03/13/2016 11:41 AM CST GASTROENTEROLOGY CLINIC PROGRESS NOTE INTERVAL CHANGES / subjective: ? F/u functional abd pain, constipation, GERD Constipation -- Linzess still helpful so far -- daily soft brown BM's. Taking every other day Hyoscyamine continues to be helpful, but not needing much lately GERD - daily protonix Controls GERD ED several weeks prior for upper abdominal and/or sternal pain squeezing sensation and told had hiatal hernia -- some worsening abd pain with meals, notably spicy foods Gaining weight Came back from [facility] Medications: Current Outpatient Prescriptions Medication Sig Dispense Refill ??? pantoprazole EC (PROTONIX) 40 MG tablet TAKE 1 TABLET BY MOUTH TWICE DAILY BEFORE BREAKFAST ANDDINNER 60 Tab 3 ??? cyclobenzaprine (FLEXERIL) 5 MG tablet Take 5 mg by mouth 3 times daily as needed ??? melatonin 3 MG tablet Take 5 mg by mouth at bedtime ??? hydroxychloroquine (PLAQUENIL) 200 MG tablet 1 Tab once daily ??? ondansetron, disintegrating, (ZOFRAN ODT) 4 MG [...] 3 times daily as needed for Anxiety ??? hyoscyamine, disintergrating, (NULEV) 0.125 MG tablet Take 1 Tab by mouth every 3 hours as needed (abd pain) 30 Tab 0 ??? DULoxetine (CYMBALTA) 60 MG capsule Take 60 mg by mouth once daily ??? rehcdgwvmh-drpkhluxucoog-imcmeypk (FIORICET) 50-325-40 MG tablet 1 Tab every 4 hours as needed for Headache Reported on 03/13/2016 90 Tab 1 ? ? sucralfate (CARAFATE) 1 GM/10ML suspension Take 10 mL by mouth 4 times daily - before meals & nightly (Patient not taking: Reported on 11/18/2015) 420 mL 1 ??? loperamide (IMODIUM) 2 MG capsule Take 1 Cap by mouth 4 times daily as needed for Diarrhea (Patient not taking: Reported on 03/13/2016) 30 Cap 0 No current facility-administered medications for this visit. Exam: Wt Readings from Last 4 Encounters: 03/13/16 84.7 kg (186 lb 12.8 oz) 12/15/15 77.1 kg (170 lb) 11/18/15 76.2 kg (168 lb) 11/09/15 75.8 kg (167 lb) BP 116/82 (BP SITE: RIGHT ARM, BP POSITION: SITTING, BP CUFF SIZE: Adult) Wt 84.7 kg (186 lb 12.8 oz) BMI 30.15 kg/m2 Body mass index is 30.15 kg/(m^2). Gen: In no acute distress, appears stated age anxious HEENT: Anicteric sclera, Oral mucosa, lips and tongue appear normal. Normal dentition. Neck: Supple, no JVD, no masses, No lymphadenopathy Lungs: CTAB. No dullness. No wheezes. No rales Heart:RRR, normal S1 and S2, no murmurs or extra heart sounds appreciated Abdomen: Soft, mild TTP epigastric, Not distended, No kaylene ascites, Bowel sounds are normal, No masses or hepatosplenomegaly Ext: No edema, No cyanosis, No clubbing Musculoskeletal: Ambulates, No joint redness, tenderness Neurologic: Grossly nonfocal. Motor 5/5. No sensory deficits. CN grossly intact. A&Ox3 Psych: Appropriate affect, mood, and thought processes. No evidence of hallucination or delirium. ? Labs Lab Results Component Value Date WBC 8.8 08/27/2015 HGB 15.2 08/27/2015 HCT 44.8 08/27/2015 MCV 84.2 08/27/2015 Lab Results Component Value Date CO2 19 (L) 08/27/2015 BUN 12 08/27/2015 CALCIUM 9.2 08/27/2015 Lab Results Component Value Date ALKPHOS 85 08/27/2015 AST 18 08/27/2015 ALT 49 08/27/2015 ALBUMIN 4.1 08/27/2015 Recent Labs Component Name 08/27/15181008/12/15192808/05/15 0709 WBC 8.8 9.5 4.4 HGB 15.2 14.3 12.5 HCT 44.8 43.5 38.4 PLTCOUNT 326 301 232 Recent Labs Component Name 08/27/151810 SODIUM 137 POTASSIUM 3.9 CHLORIDE 109* CO2 19* BUN 12 CREATININE 0.94 GLUCOSE 83 CALCIUM 9.2 ALBUMIN 4.1 ALKPHOS 85 ALT 49 AST 18 TBIL 0.3 TPROT 8.0 EGFR >60 Recent Labs Component Name 08/27/15181008/12/15192808/03/15 0414 SODIUM 137 135* 141 POTASSIUM 3.9 3.8 4.0 CHLORIDE 109* 106 107 CO2 19* 24 25 BUN 12 9 6* CREATININE 0.94 0.92 0.70 GLUCOSE 83 87 83 CALCIUM 9.2 9.1 8.3* Recent Labs Component Name 08/27/15 1811 08/12/15192808/01/151849 ALBUMIN 4.1 4.0 4.3 ALKPHOS 85 85 77 ALT 49 77 34 AST 18 44* 13 TBIL 0.3 0.2 0.2 TPROT 8.0 7.9 7.9 Recent Labs Component Name 08/12/151928 INR 1.0 No results for input(s): AMYLASE in the last 86480 hours. Recent Labs Component Name 08/27/15 18108/01/15 1850 07/13/15 1713 LIPASE 264* 681* 411* Prior Imaging: CT A/P with 07/31 HEPATOBILIARY: There are no focal hepatic lesions. Gallbladder is unremarkable. There is no biliary ductal dilatation. SPLEEN: No splenomegaly.?? Calcified granulomas are seen. PANCREAS: No focal masses or ductal dilatation. ?? ADRENALS: No adrenal nodules. KIDNEYS/URETERS: There are bilateral nonobstructing renal calculi, measuring up to 6 mm at the upper pole of the right kidney.?? There is no hydronephrosis or solid renal mass.?? There are tiny cysts bilaterally. PELVIC ORGANS/BLADDER: Bladder and uterus are normal. ?? GI TRACT: There is sigmoid diverticulosis without diverticulitis. Scattered diverticula are also seen involving the descending colon. Appendix is normal.?? Stomach and small bowel are normal. ?? PERITONEUM / RETROPERITONEUM: No free air or fluid. LYMPH NODES: No lymphadenopathy. VESSELS: Unremarkable. ?? BONES AND SOFT TISSUES: There is facet arthritis in the lower lumbar spine.?? Skeletal structures are otherwise normal. ?? IMPRESSION ??No acute intra-abdominal pathology. CT A/P with 07/2015 LOWER THORAX: Normal. ?? HEPATOBILIARY: There are no focal hepatic lesions. Gallbladder is unremarkable. There is no biliary ductal dilatation. SPLEEN: No splenomegaly.?? Calcified granulomas are seen. PANCREAS: No focal masses or ductal dilatation. ?? ADRENALS: No adrenal nodules. KIDNEYS/URETERS: There are bilateral nonobstructing renal calculi, measuring up to 6 mm at the upper pole of the right kidney.?? There is no hydronephrosis or solid renal mass.?? There are tiny cysts bilaterally. PELVIC ORGANS/BLADDER: Bladder and uterus are normal. ?? GI TRACT: There is sigmoid diverticulosis without diverticulitis. Scattered diverticula are also seen involving the descending colon. Appendix is normal.?? Stomach and small bowel are normal. ?? PERITONEUM / RETROPERITONEUM: No free air or fluid. LYMPH NODES: No lymphadenopathy. VESSELS: Unremarkable. ?? BONES AND SOFT TISSUES: There is facet arthritis in the lower lumbar spine.?? Skeletal structures are otherwise normal. ?? IMPRESSION ??No acute intra-abdominal pathology. CT A/P w/o at [place] 10/2015 * bilateral nonobstructing renal stones * Diverticulosis * punctate calcifications (granulomas) in liver/spleen * small R hepatic lobe hemangioma Prior Endoscopies: EGD 07/15/15 Impression: ?- Normal esophagus. ?- Non-bleeding gastric ulcers. Biopsied. ?- Normal examined duodenum. Findings: ?The examined esophagus was normal. ?3 non-bleeding linear gastric ulcers were found in the gastric antrum. ?The largest lesion was 1 mm in largest dimension. Biopsies were taken ?with a cold forceps for Helicobacter pylori testing. ?The examined duodenum was normal. ? 1. ??Gastric antrum, biopsy: -- ??Focal mild chronic inflammation ? 1. ??Gastric biopsy: -- ??Chronic gastritis -- ??H. pylori stain negative for bacterial organisms EGD/Enteroscpy 07/2015 Impression: ?- Normal esophagus. ?- Gastritis. Biopsied. ?- Normal examined duodenum. ?- Normal examined jejunum. ?? 1. ??Descending colon, polyp, biopsy: -- ??Hyperplastic polyp Colonoscopy 07/2015 Impression: ?- The examined portion of the ileum was normal. ?- Diverticulosis in the sigmoid colon. ?- One 7 mm polyp in the descending colon. Resected and ?retrieved. ?- The examination was otherwise normal on direct and ?retroflexion views. Colonoscopy 11/2015 Impression: ?- The entire examined colon is normal on direct and ?retroflexion views. ?- The distal rectum and anal verge are normal on ?retroflexion view. Data Stool cx neg 08/04/15 Cduff GDH/tx neg 07/14/15 Lactoferrin pos 07/14/15 IMPRESSION Madalyn Walton is a 40 y.o. with * Abd pain functional with constipation component (IBS-C vs CIC) - stable on linzess * Recent upper abd pain in setting of #3 * Prior gastric ulcers 06/2015, healed 07/2015 * Prior NSAID use * pos lactoferrin 06/2015, unremarkable colonoscopy 11/2015 * Rene Hi * Comorbidities: depression, RA, diverticulitis early 2015 RECS Cont Linzess QOD PRN hyoscyamine (helpful) Cont Protonix to QAM only, timing advised EGD Stress relieving measures, discussed yoga RTC 4 months Thank you for allowing me to participate in the care of your patient. Do not hesitate to contact meif you have further questions. Armando Corona MD [facility], [facility]astro[facility] office: [phone] Exchange: [phone] IST WATER PURIFICATION documented in this encounter Plan of Treatment Not on file documented as of this encounter Goals Goal Patient Goal Type Associated Problems Recent Progress Patient-Stated? Author Yearly PCP visit Lifestyle No Rukhsana Lazo MA documented as of this encounter Visit Diagnoses Diagnosis 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 syndrome with constipation- Primary 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 syndrome Epigastric pain Abdominal pain, epigastric documented in this encounter Care Teams Hotel Or Motel Receptionist Relationship Specialty Start Date End Date Feliciano Dash MD [address] [facility] [address] [place] [id number] PCP - General Internal Medicine 12/15/15 06/11/21 Jonathan Hartman, RN Building Performance Specialist 07/14/15 documented as of this encounter
--- OUTSIDE RECORDS SUMMARY | 2024-04-29 19:19 | XMS_ITS | Encounter Summary ---
Author Organization [facility] Address [address] [place] [address] Care Team Providers Care Criminal Intelligence Analyst Name Role Phone Minnie Jonathan Delaney RN Unavailable [phone] Feliciano Dash MD Primary Care Provider Reason for Visit * Reason Comments Refill Request Encounter Details Date Type Department Care Team (Late st Contact Info) Description 08/23/2017 Refill [facility] Medical [facility] - [address] [address] Preston Mixon MD [address] [place] [address] Refill Request Social History Tobacco Use Types Packs/Day Years Used Date Smoking Tobacco: Former Cigarettes Q uit: 2014 Smokeless Tobacco: Never Alcohol Use Standard Drinks/Week Comments Yes 0 [...] or have serious hearing difficult y? No 01/29/2017 Is person blind or have serious difficulty seein g? No 01/29/2017 Does person have serious dif ficulty walking/climbing stairs? Yes 01/29/2017 Does person have difficulty dressing/bathing? No 01/29/2017 Does person have difficulty doing errands alone? No 01/29/2017 Cognitive Status Response Date of Assessm ent Does person have difficulty concentrating/remembering/making decisions? No 01/29/2017 documented as of this encounter Plan of Treatment Not on file documented as of this encounter Goals Goal Patient Goal Type Associated Problems Recent Progress Patient-Stated? Author Yearly PCP visit Lifestyle No Rukhsana Lazo MA documented as of this encounter Visit Diagnoses Diagnosis Gastroesophageal reflux disease, esophagitis presence not specified- Primary documented in this encounter Care Teams Criminal Intelligence Analyst Relationship Specialty Start Date End Date Feliciano Dash MD [address] [facility] [address] [place] [id number] PCP - General Internal Medicine 12/15/15 06/11/21 Jonathan Hartman, RN Validation Technician 07/14/15 documented as of this encounter
--- OUTSIDE RECORDS SUMMARY | 2024-04-29 19:19 | XMS_ITS | Encounter Summary ---
Author Organization [facility] Address [address] [place] [address] Care Team Providers Care Parts Cataloger Name Role Phone Minnie Jonathan Delaney RN Unavailable [phone] Feliciano Dash MD Primary Care Provider [phone] Reason for Visit * Reason Comments Follow-up f/u IBS no problems today Encounter Details Date Type Department Care Team (Late st Contact Info) Description 07/03/2016 10:40 AM CDT Office Visit [facility] Medical [facility] - [address] [address] Armando Corona MD [address] [place] [id number] Gastritis, presence of bleeding unspecified, unspecified chronicity, unspecified gastritis type (Primary Dx) Social History Tobacco Use Types Packs/Day Years [...] Sign Reading Time Taken Comments Blood Pressure - - Pulse - - Temperature - - Respiratory Rate - - Oxygen Saturation - - Inhaled Oxygen Concentration - - Weight 84.5 kg (186 lb 3.2 oz) 07/03/2016 10:06 AM CDT Height 167.6 cm (5' 6 ) 07/03/2016 10:06 AM CDT Body Mass Index 30.05 07/03/2016 10:06 AM CDT documented in this encounter Functional Status Functional [...] No 04/06/2016 documented as of this encounter Patient Instructions * Patient Instructions* Sanjeev Zeng MA - 07/03/2016 10:11 AM CDT During your visit, we noted a difference between the dose and/or dosing frequency of one of the following medication(s) documented in your record and the way you report that it is being taken. Pleasecontact the prescribing physician to verify the correct dose and instructions for the following: documented in this encounter Progress Notes * Armando Corona MD - 07/03/2016 9:50 AM CDT GASTROENTEROLOGY CLINIC PROGRESS NOTE INTERVAL CHANGES / subjective: ? F/u functional abd pain, constipation, GERD Constipation -- Linzess still helpful so far -- daily soft brown BM's. Taking every other day Hyoscyamine continues to be helpful, but not needing much if at all GERD - controlled with PRN [id number] and carafate Gaining weight Medications: Current Outpatient Prescriptions Medication Sig Dispense Refill ? ? sucralfate (CARAFATE) 1 GM/10ML suspension Take 10 mL by mouth 4 times daily - before meals & nightly 420 mL 1 ??? HYDROcodone-acetaminophen (NORCO) 5-325 MG tablet Take 1 Tab by mouth every 4 hours as needed for Pain 15 Tab 0 ??? raNITIdine (ZANTAC) 150 MG tablet Take 1 Tab by mouth 2 times daily 60 Tab 3 ??? pantoprazole EC (PROTONIX) 40 MG tablet TAKE 1 TABLET BY MOUTH TWICE DAILY BEFORE BREAKFAST ANDDINNER 60 Tab 3 ??? cyclobenzaprine (FLEXERIL) 5 MG tablet Take 5 mg by mouth 3 times daily as needed ??? melatonin 3 MG tablet Take 5 mg by mouth at bedtime ??? sfjdawuyvs-urxbnlkqhfagu-wuujwsqe (FIORICET) 50-325-40 MG tablet 1 Tab every [...] Take 60 mg by mouth once daily No current facility-administered medications for this visit. Exam: Wt Readings from Last 4 Encounters: 05/17/16 83.9 kg (185 lb) 04/06/16 81.6 kg (180 lb) 03/13/16 84.7 kg (186 lb 12.8 oz) 12/15/15 77.1 kg (170 lb) Ht 1.676 m (5' 6 ) Wt 84.5 kg (186 lb 3.2 oz) BMI 30.05 kg/m2 Body mass index is 30.05 kg/(m^2). Gen: In no acute distress, appears stated age less anxious HEENT: Anicteric sclera, Oral mucosa, lips [...] Labs Lab Results Component Value Date WBC 9.1 05/17/2016 HGB 13.2 05/17/2016 HCT 41.3 05/17/2016 MCV 87.9 05/17/2016 Lab Results Component Value Date CO2 23 05/17/2016 BUN 14 05/17/2016 CALCIUM 8.7 05/17/2016 Lab Results Component Value Date ALKPHOS 72 05/17/2016 AST 6 05/17/2016 ALT 23 05/17/2016 ALBUMIN 3.5 05/17/2016 Recent Labs Component Name 05/17/16 1214 08/27/15 18108/12/159 WBC 9.1 8.8 9.5 HGB 13.2 15.2 14.3 HCT 41.3 44.8 43.5 PLTCOUNT 305 326 301 Recent Labs Component Name 05/17/16 1214 SODIUM 141 POTASSIUM 4.5 CHLORIDE 109* CO2 23 BUN 14 CREATININE 0.97 GLUCOSE 89 CALCIUM 8.7 ALBUMIN 3.5 ALKPHOS 72 ALT 23 AST 6 TBIL 0.3 TPROT 7.3 EGFR >60 Recent Labs Component Name 05/17/16 1214 08/27/15 18108/12/151928 SODIUM 141 137 135* POTASSIUM 4.5 3.9 3.8 CHLORIDE 109* 109* 106 CO2 23 19* 24 BUN 14 12 9 CREATININE 0.97 0.94 0.92 GLUCOSE 89 83 87 CALCIUM 8.7 9.2 9.1 Recent Labs Component Name 05/17/16 1214 08/27/15 1811 08/12/151928 ALBUMIN 3.5 4.1 4.0 ALKPHOS 72 85 85 ALT 23 49 77 AST 6 18 44* TBIL 0.3 0.3 0.2 TPROT 7.3 8.0 7.9 Recent Labs Component Name 08/12/151928 INR 1.0 No results for input(s): AMYLASE in the last 48037 hours. Recent Labs Component Name 08/27/15 1811 08/01/15 1850 07/13/15 1713 LIPASE 264* 681* 411* [...] acute intra-abdominal pathology. CT A/P w/o at [facility] 10/2015 * bilateral nonobstructing renal stones * [...] anal verge are normal on ?retroflexion view. 1. ??Large intestine, random colon, endoscopic biopsy: -- ??No histopathologic abnormality Data Stool cx neg 08/04/15 Cduff GDH/tx neg 07/14/15 Lactoferrin pos 07/14/15 IMPRESSION Madalyn Walton is a 40 y.o. with * IBS-C / CIC - stable on linzess * Grade A esophagitis 03/2016 * Prior gastric ulcers 06/2015, healed 07/2015, 03/2016 * Prior NSAID use * pos lactoferrin 06/2015, unremarkable colonoscopy 11/2015 * Rene Hi * Comorbidities: depression, RA on MTX, diverticulitis early 2015 RECS Cont Linzess QOD PRN hyoscyamine (helpful, not needing to) Off PPI while on MTX (plans to switch noted), PRN carafate helpful Stress relieving measures, discussed yoga RTC 4-6 months Thank you for allowing me to participate in the care of your patient. Do not hesitate to contact meif you have further questions. Armando Corona MD [facility] office: [phone] Exchange: [phone] documented in this encounter Plan of Treatment Not on file documented as of this encounter Goals Goal Patient Goal Type Associated Problems Recent Progress Patient-Stated? Author Yearly PCP visit Lifestyle No Rukhsana Lazo MA documented as of this encounter Visit Diagnoses Diagnosis Gastritis, presence of bleeding unspecified, unspecified chronicity, unspecified gastritis type- Primary documented in this encounter Care Teams Parts Cataloger Relationship Specialty Start Date End Date Feliciano Dash MD [address] [facility] [address] [place] [address] PCP - General Internal Medicine 12/15/15 06/11/21 Jonathan Hartman, RN Physical Anthropologist 07/14/15 documented as of this encounter
--- OUTSIDE RECORDS SUMMARY | 2024-04-29 19:19 | XMS_ITS | Encounter Summary ---
Author Organization [facility] Address [address] [place] [address] Care Team Providers Care Pmp Certified Project Manager Name Role Phone Minnie Jonathan Delaney RN Unavailable [phone] Feliciano Dash MD Primary Care Provider [phone] Reason for Visit * Reason Comments Refill Request Encounter Details Date Type Department Care Team (Late st Contact Info) Description 11/05/2018 Refill [facility] Medical [facility] - [address] [address] Armando Corona MD [address] [place] [phone] Refill Request Social History Tobacco Use Types [...] No 01/29/2017 documented as of this encounter Miscellaneous Notes * Telephone Encounter - Sanjeev Zeng MA - 11/06/2018 9:15 AM CDT Pt need OV. Last OV was 2016. CB documented in this encounter Plan of Treatment Not on file documented as of this encounter Goals Goal Patient Goal Type Associated Problems Recent Progress Patient-Stated? Author Yearly PCP visit Lifestyle No Rukhsana Lazo MA documented as of this encounter Visit Diagnoses Not on filedocumented in this encounter Care Teams Pmp Certified Project Manager Relationship Specialty Start Date End Date Feliciano Dash MD [address] [facility] [address] [place] [id number] PCP - General Internal Medicine 12/15/15 06/11/21 Jonathan Hartman, RN Road Consultant 07/14/15 documented as of this encounter
--- OUTSIDE RECORDS SUMMARY | 2024-04-29 19:19 | XMS_ITS | Referral Summary ---
Author Organization [facility] Address [address] [place] [address] Care Team Providers Care Government Guard Name Role Phone Jonathan Hartman RN Unavailable [phone] Feliciano Dash MD Primary Care Provider [phone] Source Comments [facility],non-owned Affiliates and Associated Physician Practices is amultiple site organization consisting of ambulatory clinics and hospital sitesin [place], [place], [place] and [place]. This disclosure is being madepursuant to the Care Everywhere program and may not contain all information available regarding this patient. Last updated 18.[facility] Allergies Active Allergy Reactions Criticality Noted Date Comments Ibuprofen Other Medium 11/18/2015 Stomach ulcers Medications * Be aware that medications may not be up to date on this document. Alwaysverify current medications with the patient. Medication Sig Dispensed Refills Start Date End Date Status DULoxetine (CYMBALTA) 60 MG capsule Take 60 mg by mouth once daily Takes with 30 mg (total daily dose: 90 mg) Active hyoscyamine, disintergrating, (NULEV) 0.125 MG tablet Take 1 Tab by mouth every 3 hours as needed (abd pain) 30 Tab 0 08/05/2015 Active linaclotide (LINZESS) 145 MCG capsule Take 1 Cap by mouth daily before breakfast Take on an empty stomach at least 30 minutes prior to first meal of the day. 30 Cap 3 09/15/2015 Active ondansetron, disintegrating, (ZOFRAN ODT) 4 MG tabletIndications: Migraine without aura and without status migrainosus, not intractable Dissolve 4 mg under the tongue every 12 hours as needed 11/14/2015 Active SUMAtriptan Succinate 6 MG/0.5MLIndication s:Migraine without aura and without status migrainosus, not intractable 1 injection at onset of migraine, may repeat 1 hour later if needed. 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 Obtains from [facility] in [place]. 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 Obtains from [facility] in [place]. 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 traZODone (DESYREL) 100 MG tablet Take 100 mg by mouth at bedtime Active topiramate (TOPAMAX) 100 MG tabletIndications: Migraine Take 200 mg by mouth at bedtime Reasons: Migraine Headache Active clonazePAM (KLONOPIN) 0.5 MG tablet Take 0.5 mg by mouth once daily as needed for Anxiety Active DULoxetine (CYMBALTA) 30 MG capsule Take 30 mg by mouth once daily Takes with 60 mg (total daily dose: 90 mg) Active HYDROcodone-acetam inophen (NORCO) 5-325 MG tablet Take 1 tablet by mouth every 8 hours as needed 15 tablet 02/02/2017 Active dextromethorphan-g uaiFENesin ER 12hr (MUCINEX DM) 30-600 MG tablet Take 1 tablet by mouth 2 times daily 10 tablet 02/02/2017 Active guaiFENesin (ROBITUSSIN) 100 MG/5ML solution Take 10 mL by mouth every 6 hours as needed for Cough 1 bottles 02/02/2017 Active saccharomyces (FLORASTOR) 250 MG capsule Take 1 capsule by mouth once daily 20 capsule 02/02/2017 Active raNITIdine (ZANTAC) 150 MG tablet TAKE 1 TABLET BY MOUTH TWICE DAILY 60 tablet 04/13/2017 Active CARAFATE 1 GM/10ML suspension TAKE 10 ML BY MOUTH FOUR TIMES DAILY BEFORE MEALS AND NIGHTLY 420 mL 10/15/2017 Active CARAFATE 1 GM/10ML suspensionIndicati ons:Gastroesophage al reflux disease with esophagitis TAKE 10 ML BY MOUTH FOUR TIMES DAILY BEFORE MEALS AND NIGHTLY 420 mL 10/15/2017 Active raNITIdine (ZANTAC) 150 MG tabletIndications: Gastroesophageal reflux disease with esophagitis TAKE 1 TABLET BY MOUTH TWICE DAILY 60 tablet 10/15/2017 Active Active Problems Problem Noted Date Diagnosed Date Sepsis 01/29/2017 Pneumonia of right lung due to infectious organi sm 01/29/2017 RA (rheumatoid arthritis) 11/18/2015 Diverticulitis of colon 11/18/2015 Acute cystitis without hematuria 07/14/2015 Migraine headache 11/16/2013 Immunizations Name Administration Dates Next Due INFLUENZA VACCINE, QUADR. (F LUZONE; FLULAVAL; FLUARIX; AFLURIA QUADRIVALENT; 6MO+), 0.5 ML (IIV4) 01/30/2017 Social History Tobacco Use Types Packs/Day Years Used Date Smoking Tobacco: Former Cigarettes Q uit: 2014 Smokeless Tobacco: Never Tobacco Cessation:Ready to Q uit: Yes; Counseling Given: Yes Alcohol Use Standard Drinks/Week Comments Yes 0 (1 standard drink = 0.6 oz pur e alcohol) rare Sex and Gender Information Value Date Recorded Sex Assigned at Not on file Gender Identity Female 01/29/2017 1:09 PM CDT Sexual Orientation Not on file Last Filed Vital Signs Vital Sign Reading Time Taken Comments Blood Pressure 116/62 02/02/2017 8:16 AM CDT Pulse 95 02/02/2017 8:16 AM CDT Temperature 36.9 ??C (98.4 ??F) 02/02/2017 8:16 AM CD T Respiratory Rate 16 02/02/2017 8:16 AM CDT Oxygen Saturation 100% 02/02/2017 8:16 AM CDT Inhaled Oxygen Concentration - - Weight 75.3 kg (166 lb) 01/29/2017 7:54 PM CDT Height 162.6 cm (5' 4 ) 01/29/2017 7:54 PM CDT Body Mass Index 28.49 01/29/2017 7:54 PM CDT Functional Status Functional Status Response Date of [...] person have difficulty concentrating/remembering/making decisions? No 01/29/2017 Plan of Treatment Not on file Goals Goal Patient Goal Type Associated Problems Recent Progress Patient-Stated? Author Yearly PCP visit Lifestyle No Rukhsana Lazo, MA Procedures Procedure Name Priority Date/Time Associated Diagnosis Comments ENDOSCOPY, COLON, DIAGNOSTIC Routine 12/15/2015 12:53 PM CDT Abdominal pain, unspecified abdominal location Other constipation Chronic inflammation of colon LIPID PROFILE Routine 08/02/2015 10:02 AM CDT Pancreatitis, unspecified pancreatitis type (HCC) from Last 3 Months or Most Recently Relevant to Health Maintenance Results * ENDOSCOPY, COLON, DIAGNOSTIC (12/15/2015 12:53 PM CDT) Armando Corona MD GI PROCEDURE ORDERAB LES * (ABNORMAL) LIPID PROFILE (08/02/2015 10:02 AM CDT) Cholesterol 184 <200 mg/dL 08/02/2015 10:49 AM CDT [facility] Triglycerides 156(H) <150 mg/dL 08/02/2015 10:49 AM CDT [facility] HDL Cholesterol 43 >40 mg/dL 08/02/2015 10:49 AM CDT [facility] LDL Calculated 110 <130 mg/dL 08/02/2015 10:49 AM CDT [facility] VLDL Calculated 31(H) <=30 mg/dL 08/02/2015 10:49 AM CDT [facility] Chol HDL Ratio 4.3 <4.5 08/02/2015 10:49 AM CDT [facility] LDL/HDL Ratio 2.6 <5.0 08/02/2015 10:49 AM CDT [facility] Blood BLOOD SPECIMEN / Unknown Lab Venipuncture / Unknown 08/02/2015 10:02 AM CDT 08/02/2015 10:13 AM CDT Chucho Hinton MD LAB - CHEMISTRY [facility]OR[facility] Organization Address City/State/ZIP Co de Phone Number [facility] [address] [place] [address] from Last 3 Months or Most Recently Relevant to Health Maintenance Advance Directives * Full Code (Latest Code Status on File) Date Activated Date Inactivated Comments 01/29/2017 7:53 PM 02/02/2017 1:02 PM * Full Code Date Activated Date Inactivated Comments 08/02/2015 1:57 AM 08/05/2015 3:00 PM * Full Code Date Activated Date Inactivated Comments 07/13/2015 10:36 PM 07/16/2015 3:55 PM Care Teams Government Guard Relationship Specialty Start Date End Date Feliciano Dash MD [address] [facility] [address] [place] [phone] PCP - General 07/14/21 Jonathan Hartman, RN Equipment Service Technician 07/14/15
--- OUTSIDE RECORDS SUMMARY | 2024-04-29 19:19 | XMS_ITS | Encounter Summary ---
Author Organization [facility] Address [address] [place] [address] Care Team Providers Care Pharmaceutical Sales Specialist Name Role Phone Minnie Jonathan Delaney RN Unavailable [phone] Feliciano Dash MD Primary Care Provider [phone] Reason for Visit * Auth/Cert Specialty Diagnoses / Procedures Referred By Contmonserrat t Referred To Contact Diagnoses Abdominal pain, unspecified abdominal location Abdominal pain, unspecified abdominal location Procedures COLONOSCOPY SCREEN Referral ID Status Reason Start Date Expiration Date Visits Re quested Visits Authorized [id number] 1 1 Encounter Details Date Type Department Care Team (Late st Contact Info) Description 12/15/2015 12:27 PM CDT Anesthesia Event [facility] - [facility] [address] [place] [address] Eyad Ortiz MD [address] [place] [address] Kenan García, YARD DEMURRAGE CLERK-SEO SPECIALIST [address] [facility] [place] [address] Anesthesia Record Procedure Summary Procedure Name Responsible Anesthesiologist Anesthesia Start Time Anesthesia Stop Time COLONOSCOPY SCREEN Eyad Ortiz MD 12/15/15 12 27 12/15/15 1245 Events Date Time Event Comment 12/15/2015 1224 1227 An Start 1227 An Start Data 1231 PT Reassessment Patient and Vital Signs reassessed prior to induction. 1233 Elect Sign The providers l isted as staff are the responsible providers for the case. 1233 Time Out Anesthesia part icipated in timeout at the time documented in the record by nursing 1245 an stop data 1245 An Stop 1246 Handoff Checklist follo wed: 1. Identification of patient 2. Identification of responsible nurse 3. Discussion of pertinent medical history 4. Discussion of surgical/procedure course 5. Intraoperative anesthetic management and concerns 6. Expectations/plans for the early post-procedure period 7. Opportunity for questions and acknowledgement of report Meds Name Total lidocaine (XYLOCAINE) 2% injection (20 m g/ml) 10 mg propofol (DIPRIVAN) injection 10mg/ml (E NDO USE) 28 mL 0.9% NaCl infusion 100 mL * Agents Name O2 * Blood No blood administrations on file. Lines, Drains, and Airways Type Details Placement Removal Peripheral IV Date: 12/15/15; Time : 1208; Orientation: Right; Placed By: kaiser; Tolerance: Well 12/15/15 1208 by Barbi Khanna RN 12/15/15 1944 by [employer], Auto Release documented in this encounter Social History Tobacco [...] as of this encounter Progress Notes * Kenan García, RACQUEL-SEO SPECIALIST - 12/15/2015 12:46 PM CDT ANESTHESIA POSTPROCEDURE EVALUATION Madalyn Walton is a 40 y.o. female Temp: 36.4 ??C Pulse: 97 Resp: 19 BP: 122/79 mmHg SpO2: 99 % Pain Rating Score #1: 5 Anesthesia Type: MAC Mental status: sufficiently recovered from acute administration of anesthesia to participate in theevaluation and neurologic status has returned to preoperative level. Level of consciousness: sedated No numbness, tingling or visual disturbances present. General appearance: well-appearing Respiratory function: natural airway. Cardiac: stable Pain: comfortable/acceptable PONV: None Postop hydration: adequate. Patient may be released from anesthesia care. Perioperative Complications: No value filed. ASA/AQI Tracking Events: No value filed. documented in this encounter Consult Notes * Kenan García, YARD DEMURRAGE CLERK-SEO SPECIALIST - 12/15/2015 12:24 PM CDT Pre-anesthesia Evaluation Procedure(s): COLONOSCOPY SCREEN (N/A ) Diagnosis: Abdominal pain, unspecified abdominal location [R10.9] Vital Signs: Temp: 36.4 ??C (12/14 1159) Pulse: 97 (12/14 1159) Resp: 19 (12/14 1159) BP: 122/79 mmHg (12/14 1159) SpO2: 99 % (12/14 1159) BMI: Estimated body mass index is 27.45 kg/(m^2) as calculated from the following: Height as of this encounter: 1.676 m. Weight as of this encounter: 77.111 kg. History: Past Medical History Diagnosis Date ??? Diverticulitis ??? Migraine ??? Kidney stones ??? Anxiety ??? Gastritis ??? Ulcer ??? Arthritis ??? Meredith-Danlos syndrome Past Surgical History Procedure Laterality Date ??? [...] GASTROINTESTINAL TRACT IMAGING INTRALUMINAL ESOPHAGUS THROUGH ILEUM reports that she quit smoking about 3 years ago. Her smoking use included Cigarettes. She uses smokeless tobacco. She reports that she drinks alcohol. She reports that she does not use illicit drugs. Allergies: is allergic to ibuprofen. Medications: Home Medications for Outpatients: No current outpatient prescriptions on file. Home Medications for Inpatients: Prescriptions prior to admission Medication Sig Dispense Refill ??? cyclobenzaprine (FLEXERIL) 5 MG tablet Take 5 mg by mouth 3 times daily as needed ??? melatonin 3 MG tablet Take 5 mg by mouth at bedtime ??? hydroxychloroquine (PLAQUENIL) 200 MG tablet 1 Tab once daily ??? SUMAtriptan Succinate 6 MG/0.5ML 1 injection [...] of the day. 30 Cap 3 ??? DULoxetine (CYMBALTA) 60 MG capsule Take 60 mg by mouth once daily ??? wgjyolhftl-euzcjualxvwvg-gquynyjo (FIORICET) 50-325-40 MG tablet 1 Tab every 4 hours as needed for Headache 90 Tab 1 ??? ondansetron, disintegrating, (ZOFRAN ODT) 4 MG tablet 1 Tab 2 times daily as needed ??? ALPRAZolam (XANAX) 0.25 MG tablet Take 0.25 mg by mouth 3 times daily as needed for Anxiety ??? hyoscyamine, disintergrating, (NULEV) 0.125 MG tablet Take 1 Tab by mouth every 3 hours as needed (abd pain) 30 Tab 0 ? ? sucralfate (CARAFATE) 1 GM/10ML suspension Take 10 mL by mouth 4 times daily - before meals & nightly (Patient not taking: Reported on 11/18/2015) 420 mL 1 ??? loperamide (IMODIUM) 2 MG capsule Take 1 Cap by mouth 4 times daily as needed for Diarrhea 30 Cap 0 Inpatient Medications: Current Facility-Administered Medications Medication Dose Route Frequency Provider Last Rate Last Dose ??? 0.9% NaCl injection 3 mL 3 mL Intracatheter pre-Procedure multiple Armando Corona MD ??? 0.9% NaCl infusion Intravenous Continuous Armando Corona MD ??? 0.9% NaCl infusion Intravenous Continuous Armando Corona MD Physical Exam: NPO status: no solids since midnight Oriented to person, place and time Airway: II Neck ROM: full Dental exam findings: normal/ok [...] accepted yes Discussed anesthesia plan with: anesthesiologist. documented in this encounter Plan of Treatment [...] MAR Action Action Date Dose Rate Site lidocaine (XYLOCAINE) 2 % injection PRN, Starting on Leydi 12/15/15 at 1228, Until Leydi 12/15/15 at 1245, Anesthesia Intra-op $ Given 12/15/2015 12:28 PM CDT 10 mg propofol (DIPRIVAN) injection CONTINUOUS PRN, Starting on Leydi 12/15/15 at 1231, Until Leydi 12/15/15 at 1245, Anesthesia Intra-op $ New Bag/Syringe 12/15/2015 12:31 PM CDT documented in this encounter Care Teams Pharmaceutical Sales Specialist Relationship Specialty Start Date End Date Feliciano Dash MD [address] [facility] [address] [place] [id number] PCP - General Internal Medicine 12/15/15 06/11/21 Jonathan Hartman RN Soldering Machine Tender 07/14/15 documented as of this encounter
--- OUTSIDE RECORDS SUMMARY | 2024-04-29 19:19 | XMS_ITS | Encounter Summary ---
Author Organization [facility] Address [address] [place] [address] Care Team Providers Care Bottle Feeder Name Role Phone Minnie Jonathan Delaney RN Unavailable [phone] Feliciano Dash MD Primary Care Provider [phone] Reason for Visit * Reason Comments Refill Request Encounter Details Date Type Department Care Team (Late st Contact Info) Description 12/21/2015 Refill [facility] - [address] [address] Armando Corona MD [address] [place] [id number] Refill Request Social History Tobacco Use [...] No 12/15/2015 documented as of this encounter Miscellaneous Notes * Telephone Encounter - Libertad Butts - 12/21/2015 9:36 AM CDT Refill req for pantoprazole documented in this encounter Plan of Treatment Not on file documented as of this encounter Goals Goal Patient Goal Type Associated Problems Recent Progress Patient-Stated? Author Yearly PCP visit Lifestyle No Rukhsana Lazo MA documented as of this encounter Visit Diagnoses Diagnosis Generalized abdominal pain- Primary Abdominal pain, generalized documented in this encounter Care Teams Bottle Feeder Relationship Specialty Start Date End Date Feliciano Dash MD [address] [facility] [address] [place] [address] PCP - General Internal Medicine 12/15/15 06/11/21 Jonathan Hartman RN Electrophysiology Technologist 07/14/15 documented as of this encounter
--- OUTSIDE RECORDS SUMMARY | 2024-04-29 19:19 | XMS_ITS | Encounter Summary ---
Author Organization [facility] Address [address] [place] [address] Care Team Providers Care Patternmaker Helper Name Role Phone Anthony Hartmanrubi Delaney RN Unavailable [phone] Feliciano Dash MD Primary Care Provider [phone] Reason for Visit * Reason Comments Shortness of Breath sob and pain with de ep inspiration x 2 weeks, had ct chest 2 weeks ago showing partial collapsed lung, productive cough * Auth/Cert Specialty Diagnoses / Procedures Referred By Kaylynn t Referred To Contact Referral ID Status Reason Start Date Expiration Date Visits Re quested Visits Authorized [id number] 1 1 Encounter Details Date Type Department Care Team (Late st Contact Info) Description 01/29/2017 11:48 AM CDT - 02/02/2017 11:57 AM CDT Hospital Encounter HC 3E MED/ONC [address] [place] [address] Clinton Dorman, [address] [facility] [place] [address] Mauro Sanchez MD Shami, [place], MD [address] [place] [address] Akira Romero MD [address] [place] [address] Internal Medicine Discharge Disposition: Home or Self Care Social [...] Mass Index 28.49 01/29/2017 7:54 PM CDT documented in this encounter Functional Status [...] No 01/29/2017 documented as of this encounter Discharge Summaries * Kristi Shah MD - 02/02/2017 11:57 AM CDT Physician Discharge Summary Patient Name: Madalyn Sauer Date of : 1975 Admit date: 01/29/2017 Discharge date: 02/02/2017 Admitting Physician: No admitting provider for patient encounter. Attending Physician: Kristi Shah MD Discharge Physician: Admission Diagnosis: Community-acquired pneumonia Past Medical History Past Medical History: Diagnosis Date ??? Anxiety ??? Diverticulitis ??? Meredith-Danlos syndrome ??? Gastric ulcer ??? Gastritis ??? Kidney stones ??? Migraine ??? Rheumatoid arthritis Discharge Diagnoses Same as Admission Diagnoses. Diagnostic Studies See chart Treatments See chart Procedures See chart Consults See chart Hospital Course 41-year-old female with past medical history of rheumatoid arthritis, anxiety, migraine, peptic ulcer disease presented with fever, cough with thick scanty sputum and chest discomfort. Also reported feeling tired, fatigued and with generalized malaise. Sepsis Secondary to community-acquired pneumonia Now resolved Afebrile, leukocytosis has resolved Patient still complains of cough productive of yellowish phlegm and right-sided chest discomfort although it is much better than yesterday Continue antibiotics ?? Community-acquired pneumonia Possibly secondary to atypical organisms Mycoplasma antibody negative, Chlamydia and histoplasma antigen test also unremarkable Respiratory viral panel is negative, influenza A and B negative kept on IV antibiotics , switched to p.o. on discharge Incentive spirometry to loosen secretions ?? History of RA Patient is off of Imuran and Humira now due to infection She follows up with vp ancillary ??Can resume her medications upon discharge PUD Stable Continue PPI and Carafate ?? Anxiety/depression Stable continue her Klonopin, trazodone and Cymbalta. ?? 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 syndrome Patient is on Linzess and hyoscyamine Currently stable ?? Chronic back pain Continue Cymbalta four chronic pain ?? History of migraine Currently asymptomatic Continue Topamax ?? Condition at discharge: stable Discharge Physical Exam V/s T 98 P 95 BP 116/62 Constitutional:General appearance: ??Awake and alert, slightly anxious looking ?Neck: No JVD, carotid bruit, adenopathy, or thyromegaly CVS: Heart: regular rhythm, normal S1 and S2, without murmurs, rubs or gallops Respiratory: ??Diminished breath sounds on right side, mildly labored breathing, scattered rales onright??side, no??wheezes GI:??Abdomen: soft without mass, non-tender, with normal bowel sounds Musculoskeletal: Extremities: no clubbing, cyanosis or edema Neuro: A&Ox3 and non focal. Psych:?Mildly anxious Skin:?Warm and dry, no rashes ?? Disposition: Home Code Status At Discharge Full Code Patient Instructions Discharge Medication List As of 02/02/2017 11:57 AM START taking these medications Instructions Authorizing Provider dextromethorphan-guaiFENesin ER 12hr 30-600 MG tablet Commonly known as: MUCINEX DM Take 1 tablet by mouth 2 times daily Pablo, [place] doxycycline hyclate 100 MG capsule Commonly known as: VIBRAMYCIN Take 1 capsule by mouth 2 times daily for 5 days Pablo, [place] guaiFENesin 100 MG/5ML solution Commonly known as: ROBITUSSIN Take 10 mL by mouth every 6 hours as needed for Cough Pablo, [place] HYDROcodone-acetaminophen 5-325 MG tablet Commonly known as: NORCO Take 1 tablet by mouth every 8 hours as needed Pablo, [place] saccharomyces 250 MG capsule Commonly known as: FLORASTOR Take 1 capsule by mouth once daily Pablo, [place] CHANGE how you take these medications Instructions Authorizing Provider sucralfate 1 GM/10ML suspension What changed: - when to take this - reasons to take this Commonly known as: CARAFATE Take 10 mL by mouth 4 times daily - before meals & nightly Armando Corona CONTINUE taking these medications Instructions Authorizing Provider azaTHIOprine 50 MG tablet Commonly known as: IMURAN Take by mouth once daily clonazePAM 0.5 MG tablet Commonly known as: KlonoPIN Take 0.5 mg by mouth once daily as needed for Anxiety * DULoxetine 60 MG capsule Commonly known as: CYMBALTA Take 60 mg by mouth once daily Takes with 30 mg (total daily dose: 90 mg) * DULoxetine 30 MG capsule Commonly known as: CYMBALTA Take 30 mg by mouth once daily Takes with 60 mg (total daily dose: 90 mg) hyoscyamine (disintergrating) 0.125 MG tablet Commonly known as: NULEV Take 1 Tab by mouth every 3 hours as needed (abd pain) Chucho Hinton linaCLOtide 145 MCG capsule Commonly known as: LINZESS Take 1 Cap by mouth daily before breakfast Take on an empty stomach at least 30 minutes prior to first meal of the day. Armando Corona ondansetron (disintegrating) 4 MG tablet Commonly known as: ZOFRAN ODT Dissolve 4 mg under the tongue every 12 hours as needed Other CDB-THC (1:1 ratio) 25 mg patch transdermal route every 24 hours. Obtains from [facility] in [place]. Reasons: Rhemuatoid arthiritis and Meredith-Danlos syndrome Other CDB-THC (1:1 ratio) 10 mg capsule by mouth daily. Obtains from [facility] in [place]. Reasons: Rheumatoid arthritis and Meredith-Danlos syndrome pantoprazole EC 40 MG tablet Commonly known as: PROTONIX TAKE 1 TABLET BY MOUTH TWICE DAILY BEFORE BREAKFAST AND DINNER Armando Corona SUMAtriptan Succinate 6 MG/0.5ML 1 injection at onset of migraine, may repeat 1 hour later if needed. Max 2 injections per 24 hours topiramate 100 MG tablet Commonly known as: TOPAMAX Take 200 mg by mouth at bedtime Reasons: Migraine Headache traZODone 100 MG tablet Commonly known as: DESYREL Take 100 mg by mouth at bedtime * Notice: This list has 2 medication(s) that are the same as other medications prescribed for you. Read the directions carefully, and ask your doctor or other care provider to review them with you. Discharge Procedure Orders Why you were hospitalized Order Specific Question Answer Comments Your discharge diagnosis is: CAP (community acquired pneumonia) [[id number]] Follow up with Primary Care Provider (PCP) Our records show your Primary Care Provider (PCP) is Feliciano Dash MD. Order Specific Question Answer Comments Follow Up Instructions: 1-2 weeks No special diet needed Activity as tolerated Rest today, and increase your activity level tomorrow as tolerated. Patient seen and examined by myself today. Discharge time: 35 minutes with coordination of care,education, medication reconciliation, and counseling patient Kristi Shah MD 02/02/2017 12:44 PM * Ludivina Mayo RN - 02/02/2017 11:34 AM CDT Shift Summary: Pt alert and orientedx4. Afebrile. Independent. Pt complained of back pain.PRN Norcoand morphine given alternatively. Pt tolerating IV fluids well. Good appetite. Bed in lowest position with call light and phone within reach. Discharged patient to home. Instructions given, pt verbalized understanding. IV removed. Pt taken home by family members via car. Ludivina Mayo RN 02/02/2017 11:34 AM documented in this encounter Medications at Time of Discharge Medication Sig Dispensed Refills Start Date End Date azaTHIOprine (IMURAN) 50 MG tablet Take by mouth once daily clonazePAM (KLONOPIN) 0.5 MG tablet Take 0.5 mg by mouth once daily as needed for Anxiety dextromethorphan-guai FENesin ER 12hr (MUCINEX DM) 30-600 MG tablet Take 1 tablet by mouth 2 times daily 10 tablet 02/02/2017 DULoxetine (CYMBALTA) 30 MG capsule Take 30 mg by mouth once daily Takes with 60 mg (total daily dose: 90 mg) DULoxetine (CYMBALTA) 60 MG capsule Take 60 mg by mouth once daily Takes with 30 mg (total daily dose: 90 mg) guaiFENesin (ROBITUSSIN) 100 MG/5ML solution Take 10 mL by mouth every 6 hours as needed for Cough 1 bottles 02/02/2017 HYDROcodone-acetamino phen (NORCO) 5-325 MG tablet Take 1 tablet by mouth every 8 hours as needed 15 tablet 02/02/2017 hyoscyamine, disintergrating, (NULEV) 0.125 MG tablet Take 1 Tab by mouth every 3 hours as needed (abd pain) 30 Tab 0 08/05/2015 linaclotide (LINZESS) 145 MCG capsule Take 1 Cap by mouth daily before breakfast Take on an empty stomach at least 30 minutes prior to first meal of the day. 30 Cap 3 09/15/2015 ondansetron, disintegrating, (ZOFRAN ODT) 4 MG tabletIndications:Doron samuel without aura and without status migrainosus, not intractable Dissolve 4 mg under the tongue every 12 hours as needed 11/14/2015 OtherIndications:Rhem uatoid arthiritis and Meredith-Danlos syndrome CDB-THC (1:1 ratio) 25 mg patch transdermal route every 24 hours. Obtains from [facility] in [place]. Reasons: Rhemuatoid arthiritis and Meredith-Danlos syndrome OtherIndications:Rheu matoid arthritis and Meredith-Danlos syndrome CDB-THC (1:1 ratio) 10 mg capsule by mouth daily. Obtains from [facility] in [place]. Reasons: Rheumatoid arthritis and Meredith-Danlos syndrome pantoprazole EC (PROTONIX) 40 MG tabletIndications:Gen eralized abdominal pain TAKE 1 TABLET BY MOUTH TWICE DAILY BEFORE BREAKFAST AND DINNER 60 Tab 3 12/21/2015 saccharomyces (FLORASTOR) 250 MG capsule Take 1 capsule by mouth once daily 20 capsule 02/02/2017 SUMAtriptan Succinate 6 MG/0.5MLIndications:M igraine without aura and without status migrainosus, not intractable 1 injection at onset of migraine, may repeat 1 hour later if needed. Max 2 injections per 24 hours 0 11/07/2015 topiramate (TOPAMAX) 100 MG tabletIndications:Doron samuel Take 200 mg by mouth at bedtime Reasons: Migraine Headache traZODone (DESYREL) 100 MG tablet Take 100 mg by mouth at bedtime doxycycline hyclate (VIBRAMYCIN) 100 MG capsule Take 1 capsule by mouth 2 times daily for 5 days 10 capsule 02/02/2017 02/07/2017 sucralfate (CARAFATE) 1 GM/10ML suspensionIndications :Gastritis, presence of bleeding unspecified, unspecified chronicity, unspecified gastritis type Take 10 mL by mouth 4 times daily - before meals & nightly 420 mL 3 07/03/2016 10/13/2017 documented as of this encounter Progress Notes * Shani Hawley RN - 02/02/2017 5:16 AM CDT Problem: Pain/Discomfort Goal: Patient exhibits reduced pain/discomfort as evidenced by pain scores Outcome: Ongoing Pt states that pain is improved. * Akira Jimenez RN - 02/01/2017 7:29 PM CDT Shift summary. Patient vital signs stable, afebrile. Patient reported back and rheumatoid pain. Patient received iv morphine for pain. No report of nausea or vomiting this shift. Patient resting in bed. Family members at bedside in the afternoon. Akira Jimenez RN 02/01/2017 7:30 PM * Sofia Prince RN - 02/01/2017 3:36 PM CDT [employer]ANCE NOTE: Clinical progress and medical plan reviewed. 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 Paula Prince RN CM [id number] * Kristi Shah MD - 02/01/2017 1:22 PM CDT Progress Note -- Dr. Shah Admit Date: 01/29/2017 11:48 AM Hospital Day: 3 New Symptoms Patient reports some improvement in her cough, states that she is able to produce more phlegm now, still complains of generalized malaise and weakness and feeling of heaviness in right chest. I have reviewed the MAR Clinical Course 41 y.o. female with Past Medical History: Diagnosis Date ??? Anxiety ??? Diverticulitis ??? Meredith-Danlos syndrome ??? Gastric ulcer ??? Gastritis ??? Kidney stones ??? Migraine ??? Rheumatoid arthritis MEDICATIONS FOR CURRENT ENCOUNTER: ?? SCHEDULED MEDICATIONS: ?? 0.9% NaCl injection 3 mL, Intracatheter, q8h ?? cefTRIAXone (ROCEPHIN) 2,000 mg in 50 ml IVPB, Intravenous, q24h ?? dextromethorphan-guaiFENesin ER 12hr (MUCINEX DM) 30-600 MG tablet 1 tablet, Oral, BID ?? doxycycline hyclate (VIBRAMYCIN) 100 mg in 0.9% NaCl 110 mL IVPB, Intravenous, q12h ?? DULoxetine (CYMBALTA) capsule 30 mg, Oral, QDAY ?? DULoxetine (CYMBALTA) capsule 60 mg, Oral, QDAY ?? enoxaparin (LOVENOX) injection 40 mg, Subcutaneous, QDAY ?? linaCLOtide (LINZESS) capsule 145 mcg, Oral, QDAY BEFORE BREAKFAST ?? pantoprazole EC (PROTONIX) tablet 40 mg, Oral, BID AC ?? topiramate (TOPAMAX) tablet 200 mg, Oral, AT BEDTIME ?? traZODone (DESYREL) tablet 100 mg, Oral, AT BEDTIME ?? [] iohexol (OMNIPAQUE 350) contrast, Intravenous, Contrast - Once ?? CONTINUOUS MEDICATIONS: ?? 0.45 % NaCl infusion, Intravenous, Continuous ?? PRN MEDICATIONS: ?? 0.9% NaCl injection 1-10 mL, Intracatheter, PRN ?? clonazePAM (KlonoPIN) tablet 0.5 mg, Oral, TID PRN ?? guaiFENesin (ROBITUSSIN) solution 10 mL, Oral, q6h PRN ?? levalbuterol (XOPENEX) nebulizer solution 1.25 mg, Inhalation, q6h PRN ?? morphine injection 2 mg, Intravenous, q4h PRN ?? ondansetron (ZOFRAN) injection 4 mg, Intravenous, q4h PRN Data Vitals: 02/01/17 0129 02/01/17 0511 02/01/17 0835 02/01/17 1209 BP: 113/76 109/63 105/65 105/77 Pulse: 95 86 87 107 Resp: 18 20 18 18 Temp: 98.4 ??F 98.6 ??F 98.9 ??F 98.8 ??F SpO2: 98% 97% 99% 100% Weight: Intake/Output Summary (Last 24 hours) at 02/01/17 1322 Last data filed at 02/01/17 1049 Gross per 24 hour Intake: 2200 ml Output: 0 ml Net : 2200 ml Recent Results (from the past 72 hour(s)) INFLUENZA A+B ANTIGEN RAPID Collection Time: 01/29/17 1:38 PM Result Value Ref Range Influenza A Ag Negative Negative Influenza B Ag Negative Negative D-DIMER Collection Time: 01/29/17 3:57 PM Result Value Ref Range D-Dimer mg/L FEU 0.71 (H) 0.17 - 0.5 mg/L FEU HCG URINE QUALITATIVE - POINT OF CARE (IP) Collection Time: 01/29/17 4:45 PM Result Value Ref Range HCG Qual Urine Negative Negative QC Verified Yes Yes CULTURE BLOOD Collection Time: 01/29/17 6:59 PM Result Value Ref Range Culture No growth CULTURE BLOOD Collection Time: 01/29/17 6:59 PM Result Value Ref Range Culture No growth RESPIRATORY PATHOGEN PANEL BY PCR Collection Time: 01/29/17 10:36 PM Result Value Ref Range Adenovirus PCR Not detected Not detected, Invalid, Indeterminate Human Metapneumovirus PCR Not detected Not detected, Invalid, Indeterminate Human Rhinovirus/Enterovirus PCR Not detected Not detected, Invalid, Indeterminate Influenza A Non Subtyped PCR Not detected Not detected, Invalid, Indeterminate Influenza A H1 PCR Not detected Not detected, Invalid, Indeterminate Influenza A H3 PCR Not detected Not detected, Invalid, Indeterminate Influenza A H1 2009 PCR Not detected Not detected, Invalid, Indeterminate Influenza B PCR Not detected Not detected, Invalid, Indeterminate Mycoplasma Pneumoniae PCR Not detected Not detected, Invalid, Indeterminate Parainfluenza Virus 1 PCR Not detected Not detected, Invalid, Indeterminate Parainfluenza Virus 2 PCR Not detected Not detected, Invalid, Indeterminate Parainfluenza Virus 3 PCR Not detected Not detected, Invalid, Indeterminate Parainfluenza Virus 4 PCR Not detected Not detected, Invalid, Indeterminate Respiratory Syncytial Virus PCR Not detected Not detected, Invalid, Indeterminate Bordetella Pertussis PCR Not detected Not detected, Invalid Coronavirus PCR Not detected Not detected, Invalid, Indeterminate BASIC METABOLIC PANEL (CALCIUM TOTAL) Collection Time: 01/30/17 2:42 AM Result Value Ref Range Glucose 132 (H) 74 - 106 mg/dL Sodium 143 136 - 145 mmol/L Potassium 3.9 3.5 - 5.1 mmol/L Chloride 117 (H) 98 - 107 mmol/L CO2 16 (L) 22 - 31 mmol/L Calcium 7.9 (L) 8.5 - 10.1 mg/dL Anion Gap 10 8 - 16 mmol/L BUN 11 7 - 21 mg/dL Creatinine 0.81 0.50 - 1.30 mg/dL eGFR MDRD >60 >60 mL/min/1.73m2 eGFR MDRD AFR AMR >60 >60 mL/min/1.73m2 CBC W AUTO DIFFERENTIAL Collection Time: 01/30/17 2:42 AM Result Value Ref Range WBC 8.4 4.4 - 10.7 x10E9/L WBC Corrected x10E9/L RBC 3.93 3.80 - 5.20 x10E12/L Hgb 11.2 (L) 12.0 - 15.6 gm/dL HCT 35.5 (L) 35.9 - 45.5 % MCV 90.3 80.7 - 98.3 fl MCH 28.5 26.7 - 34.0 pg MCHC 31.5 30.8 - 35.9 gm/dL Plt Ct 311 153 - 416 x10E9/L RDW-CV 13.1 12.1 - 14.9 % MPV 8.8 (L) 9.4 - 12.9 fl Neutro 85.6 (H) 44.0 - 73.0 % Lymph 9.2 (L) 20.0 - 43.0 % [place] 3.0 (L) 5.0 - 13.0 % Eos 0.0 0.0 - 6.0 % Baso 0.2 0.0 - 2.0 % Immature Grans 2.0 (H) 0 - 1 % Neutro Abs 7.17 (H) 2.01 - 7.14 x10E9/L Lymph Abs 0.77 (L) 1.07 - 3.94 x10E9/L [place] Abs 0.25 (L) 0.26 - 1.07 x10E9/L Eosin Abs 0.00 0 - 0.47 x10E9/L Baso Abs 0.02 0 - 0.08 x10E9/L Immature Grans (Abs) 0.17 (H) 0.00 - 0.06 x10E9/L NRBC Auto 0 /100 WBC MYCOPLASMA PNEUMO ANTIBODY IGG/IGM PANEL Collection Time: 01/30/17 2:42 AM Result Value Ref Range Mycoplasma Pneumoniae IgG Ab <100 0 - 99 U/mL Mycoplasma Pneumoniae IgM Ab <770 0 - 769 U/mL CBC W AUTO DIFFERENTIAL Collection Time: 01/31/17 2:42 AM Result Value Ref Range WBC 7.9 4.4 - 10.7 x10E9/L WBC Corrected x10E9/L RBC 3.79 (L) 3.80 - 5.20 x10E12/L Hgb 10.8 (L) 12.0 - 15.6 gm/dL HCT 34.9 (L) 35.9 - 45.5 % MCV 92.1 80.7 - 98.3 fl MCH 28.5 26.7 - 34.0 pg MCHC 30.9 30.8 - 35.9 gm/dL Plt Ct 296 153 - 416 x10E9/L RDW-CV 13.4 12.1 - 14.9 % MPV 8.9 (L) 9.4 - 12.9 fl Neutro 55.5 44.0 - 73.0 % Lymph 31.9 20.0 - 43.0 % [place] 6.4 5.0 - 13.0 % Eos 2.9 0.0 - 6.0 % Baso 0.8 0.0 - 2.0 % Immature Grans 2.5 (H) 0 - 1 % Neutro Abs 4.39 2.01 - 7.14 x10E9/L Lymph Abs 2.53 1.07 - 3.94 x10E9/L [place] Abs 0.51 0.26 - 1.07 x10E9/L Eosin Abs 0.23 0 - 0.47 x10E9/L Baso Abs 0.06 0 - 0.08 x10E9/L Immature Grans (Abs) 0.20 (H) 0.00 - 0.06 x10E9/L NRBC Auto 0 /100 WBC BASIC METABOLIC PANEL (CALCIUM TOTAL) Collection Time: 01/31/17 2:43 AM Result Value Ref Range Glucose 86 74 - 106 mg/dL Sodium 143 136 - 145 mmol/L Potassium 4.0 3.5 - 5.1 mmol/L Chloride 115 (H) 98 - 107 mmol/L CO2 21 (L) 22 - 31 mmol/L Calcium 7.9 (L) 8.5 - 10.1 mg/dL Anion Gap 7 (L) 8 - 16 mmol/L BUN 10 7 - 21 mg/dL Creatinine 0.85 0.50 - 1.30 mg/dL eGFR MDRD >60 >60 mL/min/1.73m2 eGFR MDRD AFR AMR >60 >60 mL/min/1.73m2 CBC W AUTO DIFFERENTIAL Collection Time: 02/01/17 3:29 AM Result Value Ref Range WBC 7.2 4.4 - 10.7 x10E9/L WBC Corrected x10E9/L RBC 3.88 3.80 - 5.20 x10E12/L Hgb 11.3 (L) 12.0 - 15.6 gm/dL HCT 35.1 (L) 35.9 - 45.5 % MCV 90.5 80.7 - 98.3 fl MCH 29.1 26.7 - 34.0 pg MCHC 32.2 30.8 - 35.9 gm/dL Plt Ct 313 153 - 416 x10E9/L RDW-CV 13.4 12.1 - 14.9 % MPV 8.7 (L) 9.4 - 12.9 fl Neutro 55.7 44.0 - 73.0 % Lymph 30.7 20.0 - 43.0 % [place] 6.0 5.0 - 13.0 % Eos 3.5 0.0 - 6.0 % Baso 1.0 0.0 - 2.0 % Immature Grans 3.1 (H) 0 - 1 % Neutro Abs 3.99 2.01 - 7.14 x10E9/L Lymph Abs 2.20 1.07 - 3.94 x10E9/L [place] Abs 0.43 0.26 - 1.07 x10E9/L Eosin Abs 0.25 0 - 0.47 x10E9/L Baso Abs 0.07 0 - 0.08 x10E9/L Immature Grans (Abs) 0.22 (H) 0.00 - 0.06 x10E9/L NRBC Auto 0 /100 WBC BASIC METABOLIC PANEL (CALCIUM TOTAL) Collection Time: 02/01/17 3:29 AM Result Value Ref Range Glucose 81 74 - 106 mg/dL Sodium 139 136 - 145 mmol/L Potassium 3.5 3.5 - 5.1 mmol/L Chloride 112 (H) 98 - 107 mmol/L CO2 19 (L) 22 - 31 mmol/L Calcium 8.3 (L) 8.5 - 10.1 mg/dL Anion Gap 8 8 - 16 mmol/L BUN 8 7 - 21 mg/dL Creatinine 0.76 0.50 - 1.30 mg/dL eGFR MDRD >60 >60 mL/min/1.73m2 eGFR MDRD AFR AMR >60 >60 mL/min/1.73m2 Exam Patient Vitals in the past 6 hrs: 02/01/17 1209, Temp:98.8 ??F, Pulse:107, Resp:18, BP:105/77, BP Method:Automatic 02/01/17 0835, Temp:98.9 ??F, Pulse:87, Resp:18, BP:105/65, BP Method:Automatic Constitutional:General appearance: ??Awake and alert, slightly anxious looking ?Neck: No JVD, carotid bruit, adenopathy, or thyromegaly CVS: Heart: regular rhythm, normal S1 and S2, without murmurs, rubs or gallops Respiratory: ??Diminished breath sounds on right side, mildly labored breathing, scattered rales onright??side, no??wheezes GI:??Abdomen: soft without mass, non-tender, with normal bowel sounds Musculoskeletal: Extremities: no clubbing, cyanosis or edema Neuro: A&Ox3 and non focal. Psych:?Mildly anxious Skin:?Warm and dry, no rashes ?? Assessment and Plan Sepsis Secondary to community-acquired pneumonia Now resolving Patient still complains of cough productive of yellowish phlegm and right-sided chest discomfort although it is slightly better than yesterday Continue IV antibiotics Community-acquired pneumonia Possibly secondary to atypical organisms Mycoplasma antibody negative, Chlamydia and histoplasma antigen test is in progress Respiratory viral panel is negative, influenza A and B negative Continue IV antibiotics at this time Incentive spirometry to loosen secretions History of RA Patient is off of Imuran and Humira now due to infection She follows up with vp ancillary PUD Stable Continue PPI and Carafate Anxiety/depression Patient is slightly anxious at this time continue her Klonopin, trazodone and Cymbalta. Irritability bowel syndrome Patient is on Linzess and hyoscyamine Currently stable Chronic back pain Continue Cymbalta four chronic pain History of migraine Currently asymptomatic Continue Topamax Prophylaxis: In place Care plan was discussed with patient and RN Kristi Shah MD * Shani Hawley RN - 02/01/2017 12:42 AM CDT Shift Summary: Pt A&Ox4. IV fluids infusing. New IV placed due to old IV leaking. Abx infused. C/o back pain, given prescribed pain medication. VSS. Pt sleeping in bed in no apparent distress. Will continue to monitor. Call light w/ in reach. * Nancy Michaels RN - 01/31/2017 7:45 PM CDT Shift summary: Pt a/o x4. VSS. Up SBA with cane in room. Pt c/o pain/nausea/anxiety/ not feeling well this shift, meds given per [facility]. Family at bedside part of shift. Call light in reach. Nancy Michaels RN 01/31/2017 7:45 PM * Kristi Shah MD - 01/31/2017 1:06 PM CDT Progress Note -- Dr. Shah Admit Date: 01/29/2017 11:48 AM Hospital Day: 2 New Symptoms Patient still complains of cough with thick scanty sputum, and difficulty breathing. She also complains of generalized malaise I have reviewed the [facility] Clinical Course 41 y.o. female with Past Medical History: Diagnosis Date ??? Anxiety ??? Diverticulitis ??? Meredith-Danlos syndrome ??? Gastric ulcer ??? Gastritis ??? Kidney stones ??? Migraine ??? Rheumatoid arthritis MEDICATIONS FOR CURRENT ENCOUNTER: ?? SCHEDULED MEDICATIONS: ?? 0.9% NaCl injection 3 mL, Intracatheter, q8h ?? cefTRIAXone (ROCEPHIN) 2,000 mg in 50 ml IVPB, Intravenous, q24h ?? dextromethorphan-guaiFENesin ER 12hr (MUCINEX DM) 30-600 MG tablet 1 tablet, Oral, BID ?? doxycycline hyclate (VIBRAMYCIN) 100 mg in 0.9% NaCl 110 mL IVPB, Intravenous, q12h ?? DULoxetine (CYMBALTA) capsule 30 mg, Oral, QDAY ?? DULoxetine (CYMBALTA) capsule 60 mg, Oral, QDAY ?? enoxaparin (LOVENOX) injection 40 mg, Subcutaneous, QDAY ?? iohexol (OMNIPAQUE 350) contrast, Intravenous, Contrast - Once ?? linaCLOtide (LINZESS) capsule 145 mcg, Oral, QDAY BEFORE BREAKFAST ?? pantoprazole EC (PROTONIX) tablet 40 mg, Oral, BID AC ?? topiramate (TOPAMAX) tablet 200 mg, Oral, AT BEDTIME ?? traZODone (DESYREL) tablet 100 mg, Oral, AT BEDTIME ?? CONTINUOUS MEDICATIONS: ?? 0.45 % NaCl infusion, Intravenous, Continuous ?? PRN MEDICATIONS: ?? 0.9% NaCl injection 1-10 mL, Intracatheter, PRN ?? clonazePAM (KlonoPIN) tablet 0.5 mg, Oral, TID PRN ?? guaiFENesin (ROBITUSSIN) solution 10 mL, Oral, q6h PRN ?? levalbuterol (XOPENEX) nebulizer solution 1.25 mg, Inhalation, q6h PRN ?? morphine injection 2 mg, Intravenous, q4h PRN ?? ondansetron (ZOFRAN) injection 4 mg, Intravenous, q4h PRN Data Vitals: 01/31/17 0447 01/31/17 0506 01/31/17 0822 01/31/17 1253 BP: 101/79 129/93 99/80 Pulse: 83 84 96 90 Resp: 16 Temp: 98.1 ??F 98.6 ??F 98.2 ??F SpO2: 99% 100% 95% Weight: Intake/Output Summary (Last 24 hours) at 01/31/17 1306 Last data filed at 01/31/17 0823 Gross per 24 hour Intake: 340 ml Output: 0 ml Net : 340 ml Recent Results (from the past 72 hour(s)) CBC W AUTO DIFFERENTIAL Collection Time: 01/29/17 12:14 PM Result Value Ref Range WBC 13.4 (H) 4.4 - 10.7 x10E9/L WBC Corrected x10E9/L RBC 4.60 3.80 - 5.20 x10E12/L Hgb 13.2 12.0 - 15.6 gm/dL HCT 40.8 35.9 - 45.5 % MCV 88.7 80.7 - 98.3 fl MCH 28.7 26.7 - 34.0 pg MCHC 32.4 30.8 - 35.9 gm/dL Plt Ct 356 153 - 416 x10E9/L RDW-CV 13.2 12.1 - 14.9 % MPV 8.7 (L) 9.4 - 12.9 fl Neutro 79.3 (H) 44.0 - 73.0 % Lymph 13.3 (L) 20.0 - 43.0 % [place] 4.3 (L) 5.0 - 13.0 % Eos 0.9 0.0 - 6.0 % Baso 0.8 0.0 - 2.0 % Immature Grans 1.4 (H) 0 - 1 % Neutro Abs 10.65 (H) 2.01 - 7.14 x10E9/L Lymph Abs 1.79 1.07 - 3.94 x10E9/L [place] Abs 0.58 0.26 - 1.07 x10E9/L Eosin Abs 0.12 0 - 0.47 x10E9/L Baso Abs 0.11 (H) 0 - 0.08 x10E9/L Immature Grans (Abs) 0.19 (H) 0.00 - 0.06 x10E9/L NRBC Auto 0 /100 WBC COMPREHENSIVE METABOLIC PANEL Collection Time: 01/29/17 12:14 PM Result Value Ref Range Glucose 97 74 - 106 mg/dL Sodium 137 136 - 145 mmol/L Potassium 3.6 3.5 - 5.1 mmol/L Chloride 108 (H) 98 - 107 mmol/L CO2 18 (L) 22 - 31 mmol/L Calcium 8.7 8.5 - 10.1 mg/dL Anion Gap 11 8 - 16 mmol/L BUN 13 7 - 21 mg/dL Creatinine 0.93 0.50 - 1.30 mg/dL Alk Phos 70 38 - 126 U/L ALT/SGPT 21 13 - 61 U/L AST/SGOT 17 5 - 40 U/L Protein Total 7.6 6.4 - 8.2 gm/dL Albumin 3.3 (L) 3.4 - 5.0 gm/dL Bili Total 0.5 0.2 - 1.0 mg/dL eGFR MDRD >60 >60 mL/min/1.73m2 eGFR MDRD AFR AMR >60 >60 mL/min/1.73m2 LACTIC ACID BLOOD Collection Time: 01/29/17 12:14 PM Result Value Ref Range Lactic Acid 1.7 0.7 - 2.1 mmol/L EKG 12-LEAD Collection Time: 01/29/17 12:20 PM Result Value Ref Range Ventricular Rate BPM 100 BPM Atrial Rate BPM 100 BPM P-R Interval ms 84 ms QRS Duration ms 102 ms Q-T Interval ms 366 ms QTC Calculation (Bezet) ms 472 ms Calculated P [place] degrees 26 degrees Calculated R [place] degrees 48 degrees Calculated T axis degrees 33 degrees EKG Interp SINUS RHYTHM WITH SHORT SD NONSPECIFIC ST ABNORMALITY ABNORMAL ECG Confirmed by MD Lisandra, Toi ([id number]) on 01/30/2017 7:55:22 AM INFLUENZA A+B ANTIGEN RAPID Collection Time: 01/29/17 1:38 PM Result Value Ref Range Influenza A Ag Negative Negative Influenza B Ag Negative Negative D-DIMER Collection Time: 01/29/17 3:57 PM Result Value Ref Range D-Dimer mg/L FEU 0.71 (H) 0.17 - 0.5 mg/L FEU HCG URINE QUALITATIVE - POINT OF CARE (IP) Collection Time: 01/29/17 4:45 PM Result Value Ref Range HCG Qual Urine Negative Negative QC Verified Yes Yes CULTURE BLOOD Collection Time: 01/29/17 6:59 PM Result Value Ref Range Culture No growth 24 hours CULTURE BLOOD Collection Time: 01/29/17 6:59 PM Result Value Ref Range Culture No growth 24 hours RESPIRATORY PATHOGEN PANEL BY PCR Collection Time: 01/29/17 10:36 PM Result Value Ref Range Adenovirus PCR Not detected Not detected, Invalid, Indeterminate Human Metapneumovirus PCR Not detected Not detected, Invalid, Indeterminate Human Rhinovirus/Enterovirus PCR Not detected Not detected, Invalid, Indeterminate Influenza A Non Subtyped PCR Not detected Not detected, Invalid, Indeterminate Influenza A H1 PCR Not detected Not detected, Invalid, Indeterminate Influenza A H3 PCR Not detected Not detected, Invalid, Indeterminate Influenza A H1 2009 PCR Not detected Not detected, Invalid, Indeterminate Influenza B PCR Not detected Not detected, Invalid, Indeterminate Mycoplasma Pneumoniae PCR Not detected Not detected, Invalid, Indeterminate Parainfluenza Virus 1 PCR Not detected Not detected, Invalid, Indeterminate Parainfluenza Virus 2 PCR Not detected Not detected, Invalid, Indeterminate Parainfluenza Virus 3 PCR Not detected Not detected, Invalid, Indeterminate Parainfluenza Virus 4 PCR Not detected Not detected, Invalid, Indeterminate Respiratory Syncytial Virus PCR Not detected Not detected, Invalid, Indeterminate Bordetella Pertussis PCR Not detected Not detected, Invalid Coronavirus PCR Not detected Not detected, Invalid, Indeterminate BASIC METABOLIC PANEL (CALCIUM TOTAL) Collection Time: 01/30/17 2:42 AM Result Value Ref Range Glucose 132 (H) 74 - 106 mg/dL Sodium 143 136 - 145 mmol/L Potassium 3.9 3.5 - 5.1 mmol/L Chloride 117 (H) 98 - 107 mmol/L CO2 16 (L) 22 - 31 mmol/L Calcium 7.9 (L) 8.5 - 10.1 mg/dL Anion Gap 10 8 - 16 mmol/L BUN 11 7 - 21 mg/dL Creatinine 0.81 0.50 - 1.30 mg/dL eGFR MDRD >60 >60 mL/min/1.73m2 eGFR MDRD AFR AMR >60 >60 mL/min/1.73m2 CBC W AUTO DIFFERENTIAL Collection Time: 01/30/17 2:42 AM Result Value Ref Range WBC 8.4 4.4 - 10.7 x10E9/L WBC Corrected x10E9/L RBC 3.93 3.80 - 5.20 x10E12/L Hgb 11.2 (L) 12.0 - 15.6 gm/dL HCT 35.5 (L) 35.9 - 45.5 % MCV 90.3 80.7 - 98.3 fl MCH 28.5 26.7 - 34.0 pg MCHC 31.5 30.8 - 35.9 gm/dL Plt Ct 311 153 - 416 x10E9/L RDW-CV 13.1 12.1 - 14.9 % MPV 8.8 (L) 9.4 - 12.9 fl Neutro 85.6 (H) 44.0 - 73.0 % Lymph 9.2 (L) 20.0 - 43.0 % [place] 3.0 (L) 5.0 - 13.0 % Eos 0.0 0.0 - 6.0 % Baso 0.2 0.0 - 2.0 % Immature Grans 2.0 (H) 0 - 1 % Neutro Abs 7.17 (H) 2.01 - 7.14 x10E9/L Lymph Abs 0.77 (L) 1.07 - 3.94 x10E9/L [place] Abs 0.25 (L) 0.26 - 1.07 x10E9/L Eosin Abs 0.00 0 - 0.47 x10E9/L Baso Abs 0.02 0 - 0.08 x10E9/L Immature Grans (Abs) 0.17 (H) 0.00 - 0.06 x10E9/L NRBC Auto 0 /100 WBC CBC W AUTO DIFFERENTIAL Collection Time: 01/31/17 2:42 AM Result Value Ref Range WBC 7.9 4.4 - 10.7 x10E9/L WBC Corrected x10E9/L RBC 3.79 (L) 3.80 - 5.20 x10E12/L Hgb 10.8 (L) 12.0 - 15.6 gm/dL HCT 34.9 (L) 35.9 - 45.5 % MCV 92.1 80.7 - 98.3 fl MCH 28.5 26.7 - 34.0 pg MCHC 30.9 30.8 - 35.9 gm/dL Plt Ct 296 153 - 416 x10E9/L RDW-CV 13.4 12.1 - 14.9 % MPV 8.9 (L) 9.4 - 12.9 fl Neutro 55.5 44.0 - 73.0 % Lymph 31.9 20.0 - 43.0 % [place] 6.4 5.0 - 13.0 % Eos 2.9 0.0 - 6.0 % Baso 0.8 0.0 - 2.0 % Immature Grans 2.5 (H) 0 - 1 % Neutro Abs 4.39 2.01 - 7.14 x10E9/L Lymph Abs 2.53 1.07 - 3.94 x10E9/L [place] Abs 0.51 0.26 - 1.07 x10E9/L Eosin Abs 0.23 0 - 0.47 x10E9/L Baso Abs 0.06 0 - 0.08 x10E9/L Immature Grans (Abs) 0.20 (H) 0.00 - 0.06 x10E9/L NRBC Auto 0 /100 WBC BASIC METABOLIC PANEL (CALCIUM TOTAL) Collection Time: 01/31/17 2:43 AM Result Value Ref Range Glucose 86 74 - 106 mg/dL Sodium 143 136 - 145 mmol/L Potassium 4.0 3.5 - 5.1 mmol/L Chloride 115 (H) 98 - 107 mmol/L CO2 21 (L) 22 - 31 mmol/L Calcium 7.9 (L) 8.5 - 10.1 mg/dL Anion Gap 7 (L) 8 - 16 mmol/L BUN 10 7 - 21 mg/dL Creatinine 0.85 0.50 - 1.30 mg/dL eGFR MDRD >60 >60 mL/min/1.73m2 eGFR MDRD AFR AMR >60 >60 mL/min/1.73m2 Exam Patient Vitals in the past 6 hrs: 01/31/17 1253, Temp:98.2 ??F, Pulse:90, Resp:16, BP:99/80, BP Method:Automatic 01/31/17 0822, Temp:98.6 ??F, Pulse:96, Resp:18, BP:129/93, BP Method:Automatic Constitutional:General appearance: Awake and alert, slightly anxious looking Neck: No JVD, carotid bruit, adenopathy, or thyromegaly CVS: Heart: regular rhythm, normal S1 and S2, without murmurs, rubs or gallops Respiratory: Diminished breath sounds on right side, mildly labored breathing, scattered rales on right side, no wheezes GI: Abdomen: soft without mass, non-tender, with normal bowel sounds Musculoskeletal: Extremities: no clubbing, cyanosis or edema Neuro: A&Ox3 and non focal. Psych: Mildly anxious Skin: Warm and dry, no rash Assessment and Plan Sepsis Patient presented with tachycardia and leukocytosis with left shift, that is improving now She still has productive cough and right-sided chest discomfort Chest x-ray was unremarkable CT chest showed evidence of right-sided pneumonia Continue IV antibiotics The patient is being treated for possible atypical pneumonia Community-acquired pneumonia Possibly secondary to atypical organisms Patient is being treated with IV antibiotics Continue on nebulizer treatments and cough medication DuoNeb switched to Xopenex due to anxiety and tachycardia Continue to monitor closely ?? Rheumatoid arthritis Patient is off of Imuran, Humira now She was also taking steroids Patient follows up with a vp ancillary ?? Peptic ulcer disease Stable Continue PPI ?? Anxiety/depression Appears slightly anxious at this time Continue Cymbalta and Klonopin ?? History of migraines Currently asymptomatic Continue Topamax ?? DVT/GI prophylaxis: In place ?? Care plan d/w patient and RN Kristi Shah MD * Doris Rahman, RD/LD - 01/31/2017 10:37 AM CDT Clinical Nutrition Patient seen for meal rounds today. She reported liking the Magic Cup but requested this be changedto snack time. Adjusted order to BID Magic Cup providing 290 calories and 9g protein per serving atPM and HS snack. Patient also requested grapes and apple juice with snacks. Advised patient that snack of Magic Cup, grapes, and apple juice is high in sugar however with current appetite and weight loss it seems appropriate to provide patient with foods she knows she likes and will eat. Will continue to follow. PASCALE Wick 01/31/2017 10:40 AM Ascom [id number] * Eri Benson RN - 01/31/2017 4:55 AM CDT Shift Summary: Assumed care of pt at 2300. VSS. A/O x4. Tolerating IVF well. PRN morphine and robitussin given. Pain also relieved with rest and ice. Non productive cough which pt feels is starting to become more wet than dry. Pt is up to bathroom with cane/SBA. PRN Klonopin given after breathingtreatment. Pt otherwise resting in bed, call light in reach. Eri Benson RN 01/31/2017 6:57 AM * Laurel Peace RN - 01/30/2017 11:22 PM CDT Shift Summary: Pt alert and oriented x4. Vitals Stable. Standby assist x1 with use of cane to restroom. IV fluids and antibiotics ongoing. Anxious after nebulizer treatments. Prn antianxiety medication provided. Non productive cough. Oral fluids encouraged. Pain to upper and lower extremities. Prn pain medication administered. Continues to rest in bed without acute distress and call light within reach. * Adri Daniels RCP - 01/30/2017 7:58 PM CDT Ms Sauer received her 2000 treatment; treatments changed from Q6 to PRN due to Therapeutic Assessment score of 3; she remains on room air; no problems noted at this time Adri Daniels, Respiratory Care Practitioner 01/30/2017 8:07 PM * Nancy Michaels RN - 01/30/2017 6:15 PM CDT Shift summary: Pt a/o x4, anxious. VSS. Pt up SBA in room, uses cane. Pt c/o pain to low back, L hip, R chest, PRN meds given per MAR; c/o anxiety, PRN meds given per MAR. Antibiotics given as ordered. Family at bedside majority of shift. Call light in reach. Nancy Michaels RN 01/30/2017 6:15 PM * Kristi Shah MD - 01/30/2017 4:31 PM CDT Progress Note -- Dr. Shah Admit Date: 01/29/2017 11:48 AM Hospital Day: 1 New Symptoms Patient reports having cough with thick scanty sputum, chest congestion and generalized malaise. I have reviewed the [facility] Clinical Course 41 y.o. female with Past Medical History: Diagnosis Date ??? Anxiety ??? Diverticulitis ??? Meredith-Danlos syndrome ??? Gastric ulcer ??? Gastritis ??? Kidney stones ??? Migraine ??? Rheumatoid arthritis MEDICATIONS FOR CURRENT ENCOUNTER: ?? SCHEDULED MEDICATIONS: ?? 0.9% NaCl injection 3 mL, Intracatheter, q8h ?? cefTRIAXone (ROCEPHIN) 2,000 mg in 50 ml IVPB, Intravenous, q24h ?? dextromethorphan-guaiFENesin ER 12hr (MUCINEX DM) 30-600 MG tablet 1 tablet, Oral, BID ?? doxycycline hyclate (VIBRAMYCIN) 100 mg in 0.9% NaCl 110 mL IVPB, Intravenous, q12h ?? DULoxetine (CYMBALTA) capsule 30 mg, Oral, QDAY ?? DULoxetine (CYMBALTA) capsule 60 mg, Oral, QDAY ?? enoxaparin (LOVENOX) injection 40 mg, Subcutaneous, QDAY ?? iohexol (OMNIPAQUE 350) contrast, Intravenous, Contrast - Once ?? levalbuterol (XOPENEX) nebulizer solution 1.25 mg, Inhalation, q6h ?? linaCLOtide (LINZESS) capsule 145 mcg, Oral, QDAY BEFORE BREAKFAST ?? pantoprazole EC (PROTONIX) tablet 40 mg, Oral, BID AC ?? topiramate (TOPAMAX) tablet 200 mg, Oral, AT BEDTIME ?? traZODone (DESYREL) tablet 100 mg, Oral, AT BEDTIME ?? [COMPLETED] 0.9% NaCl IV Bolus, Intravenous, Now ?? [COMPLETED] influenza quadrivalent vac (FLULAVAL QUAD) injection (6 month +) 0.5 mL, Intramuscular, Immunization - Once ?? [COMPLETED] ketorolac (TORADOL) injection 30 mg, Intravenous, Once ?? CONTINUOUS MEDICATIONS: ?? 0.45 % NaCl infusion, Intravenous, Continuous ?? PRN MEDICATIONS: ?? 0.9% NaCl injection 1-10 mL, Intracatheter, PRN ?? clonazePAM (KlonoPIN) tablet 0.5 mg, Oral, TID PRN ?? guaiFENesin (ROBITUSSIN) solution 10 mL, Oral, q6h PRN ?? morphine injection 2 mg, Intravenous, q4h PRN ?? ondansetron (ZOFRAN) injection 4 mg, Intravenous, q4h PRN Data Vitals: 01/30/17 0529 01/30/17 0841 01/30/17 0849 01/30/17 1233 BP: 108/70 122/80 104/68 Pulse: 81 88 102 91 Resp: 18 18 20 18 Temp: 98 ??F 97.6 ??F 98 ??F SpO2: 96% 100% 96% Weight: Intake/Output Summary (Last 24 hours) at 01/30/17 1631 Last data filed at 01/30/17 1203 Gross per 24 hour Intake: 1581 ml Output: 0 ml Net : 1581 ml Recent Results (from the past 72 hour(s)) CBC W AUTO DIFFERENTIAL Collection Time: 01/29/17 12:14 PM Result Value Ref Range WBC 13.4 (H) 4.4 - 10.7 x10E9/L WBC Corrected x10E9/L RBC 4.60 3.80 - 5.20 x10E12/L Hgb 13.2 12.0 - 15.6 gm/dL HCT 40.8 35.9 - 45.5 % MCV 88.7 80.7 - 98.3 fl MCH 28.7 26.7 - 34.0 pg MCHC 32.4 30.8 - 35.9 gm/dL Plt Ct 356 153 - 416 x10E9/L RDW-CV 13.2 12.1 - 14.9 % MPV 8.7 (L) 9.4 - 12.9 fl Neutro 79.3 (H) 44.0 - 73.0 % Lymph 13.3 (L) 20.0 - 43.0 % [place] 4.3 (L) 5.0 - 13.0 % Eos 0.9 0.0 - 6.0 % Baso 0.8 0.0 - 2.0 % Immature Grans 1.4 (H) 0 - 1 % Neutro Abs 10.65 (H) 2.01 - 7.14 x10E9/L Lymph Abs 1.79 1.07 - 3.94 x10E9/L [place] Abs 0.58 0.26 - 1.07 x10E9/L Eosin Abs 0.12 0 - 0.47 x10E9/L Baso Abs 0.11 (H) 0 - 0.08 x10E9/L Immature Grans (Abs) 0.19 (H) 0.00 - 0.06 x10E9/L NRBC Auto 0 /100 WBC COMPREHENSIVE METABOLIC PANEL Collection Time: 01/29/17 12:14 PM Result Value Ref Range Glucose 97 74 - 106 mg/dL Sodium 137 136 - 145 mmol/L Potassium 3.6 3.5 - 5.1 mmol/L Chloride 108 (H) 98 - 107 mmol/L CO2 18 (L) 22 - 31 mmol/L Calcium 8.7 8.5 - 10.1 mg/dL Anion Gap 11 8 - 16 mmol/L BUN 13 7 - 21 mg/dL Creatinine 0.93 0.50 - 1.30 mg/dL Alk Phos 70 38 - 126 U/L ALT/SGPT 21 13 - 61 U/L AST/SGOT 17 5 - 40 U/L Protein Total 7.6 6.4 - 8.2 gm/dL Albumin 3.3 (L) 3.4 - 5.0 gm/dL Bili Total 0.5 0.2 - 1.0 mg/dL eGFR MDRD >60 >60 mL/min/1.73m2 eGFR MDRD AFR AMR >60 >60 mL/min/1.73m2 LACTIC ACID BLOOD Collection Time: 01/29/17 12:14 PM Result Value Ref Range Lactic Acid 1.7 0.7 - 2.1 mmol/L EKG 12-LEAD Collection Time: 01/29/17 12:20 PM Result Value Ref Range Ventricular Rate BPM 100 BPM Atrial Rate BPM 100 BPM P-R Interval ms 84 ms QRS Duration ms 102 ms Q-T Interval ms 366 ms QTC Calculation (Bezet) ms 472 ms Calculated P [place] degrees 26 degrees Calculated R [place] degrees 48 degrees Calculated T axis degrees 33 degrees EKG Interp SINUS RHYTHM WITH SHORT SD NONSPECIFIC ST ABNORMALITY ABNORMAL ECG Confirmed by MD Lisandra, Toi ([id number]) on 01/30/2017 7:55:22 AM INFLUENZA A+B ANTIGEN RAPID Collection Time: 01/29/17 1:38 PM Result Value Ref Range Influenza A Ag Negative Negative Influenza B Ag Negative Negative D-DIMER Collection Time: 01/29/17 3:57 PM Result Value Ref Range D-Dimer mg/L FEU 0.71 (H) 0.17 - 0.5 mg/L FEU HCG URINE QUALITATIVE - POINT OF CARE (IP) Collection Time: 01/29/17 4:45 PM Result Value Ref Range HCG Qual Urine Negative Negative QC Verified Yes Yes RESPIRATORY PATHOGEN PANEL BY PCR Collection Time: 01/29/17 10:36 PM Result Value Ref Range Adenovirus PCR Not detected Not detected, Invalid, Indeterminate Human Metapneumovirus PCR Not detected Not detected, Invalid, Indeterminate Human Rhinovirus/Enterovirus PCR Not detected Not detected, Invalid, Indeterminate Influenza A Non Subtyped PCR Not detected Not detected, Invalid, Indeterminate Influenza A H1 PCR Not detected Not detected, Invalid, Indeterminate Influenza A H3 PCR Not detected Not detected, Invalid, Indeterminate Influenza A H1 2009 PCR Not detected Not detected, Invalid, Indeterminate Influenza B PCR Not detected Not detected, Invalid, Indeterminate Mycoplasma Pneumoniae PCR Not detected Not detected, Invalid, Indeterminate Parainfluenza Virus 1 PCR Not detected Not detected, Invalid, Indeterminate Parainfluenza Virus 2 PCR Not detected Not detected, Invalid, Indeterminate Parainfluenza Virus 3 PCR Not detected Not detected, Invalid, Indeterminate Parainfluenza Virus 4 PCR Not detected Not detected, Invalid, Indeterminate Respiratory Syncytial Virus PCR Not detected Not detected, Invalid, Indeterminate Bordetella Pertussis PCR Not detected Not detected, Invalid Coronavirus PCR Not detected Not detected, Invalid, Indeterminate BASIC METABOLIC PANEL (CALCIUM TOTAL) Collection Time: 01/30/17 2:42 AM Result Value Ref Range Glucose 132 (H) 74 - 106 mg/dL Sodium 143 136 - 145 mmol/L Potassium 3.9 3.5 - 5.1 mmol/L Chloride 117 (H) 98 - 107 mmol/L CO2 16 (L) 22 - 31 mmol/L Calcium 7.9 (L) 8.5 - 10.1 mg/dL Anion Gap 10 8 - 16 mmol/L BUN 11 7 - 21 mg/dL Creatinine 0.81 0.50 - 1.30 mg/dL eGFR MDRD >60 >60 mL/min/1.73m2 eGFR MDRD AFR AMR >60 >60 mL/min/1.73m2 CBC W AUTO DIFFERENTIAL Collection Time: 01/30/17 2:42 AM Result Value Ref Range WBC 8.4 4.4 - 10.7 x10E9/L WBC Corrected x10E9/L RBC 3.93 3.80 - 5.20 x10E12/L Hgb 11.2 (L) 12.0 - 15.6 gm/dL HCT 35.5 (L) 35.9 - 45.5 % MCV 90.3 80.7 - 98.3 fl MCH 28.5 26.7 - 34.0 pg MCHC 31.5 30.8 - 35.9 gm/dL Plt Ct 311 153 - 416 x10E9/L RDW-CV 13.1 12.1 - 14.9 % MPV 8.8 (L) 9.4 - 12.9 fl Neutro 85.6 (H) 44.0 - 73.0 % Lymph 9.2 (L) 20.0 - 43.0 % [place] 3.0 (L) 5.0 - 13.0 % Eos 0.0 0.0 - 6.0 % Baso 0.2 0.0 - 2.0 % Immature Grans 2.0 (H) 0 - 1 % Neutro Abs 7.17 (H) 2.01 - 7.14 x10E9/L Lymph Abs 0.77 (L) 1.07 - 3.94 x10E9/L [place] Abs 0.25 (L) 0.26 - 1.07 x10E9/L Eosin Abs 0.00 0 - 0.47 x10E9/L Baso Abs 0.02 0 - 0.08 x10E9/L Immature Grans (Abs) 0.17 (H) 0.00 - 0.06 x10E9/L NRBC Auto 0 /100 WBC Exam Patient Vitals in the past 6 hrs: 01/30/17 1233, Temp:98 ??F, Pulse:91, Resp:18, BP:104/68, BP Method:Automatic Constitutional:General appearance: Awake and alert, slightly anxious looking Eyes: Sclerae are anicteric and conjunctivae are pink. PERRL Throat: Normal oral cavity and pharynx Neck: No JVD, carotid bruit, adenopathy, or thyromegaly CVS: Heart: regular rhythm, normal S1 and S2, without murmurs, rubs or gallops Respiratory: Diminished breath sounds on right side, mildly labored breathing, scattered rales on right side, no wheezes GI: Abdomen: soft without mass, non-tender, with normal bowel sounds Musculoskeletal: Extremities: no clubbing, cyanosis or edema Neuro: A&Ox3 and non focal. Psych: Mildly anxious Skin: Warm and dry, no rash Assessment and Plan Sepsis Patient presented with tachycardia and leukocytosis with left shift She also reported having productive cough and right-sided chest discomfort Chest x-ray showed evidence of right-sided pneumonia Started on IV antibiotics Respiratory viral panel is negative Atypical pneumonia antibodies are pending Community-acquired pneumonia Patient is being treated with IV antibiotics Start on nebulizer treatments and cough medication DuoNeb switched to Xopenex due to anxiety and tachycardia Continue to monitor closely Rheumatoid arthritis Patient is off of Imuran, Humira now She was also taking steroids Patient follows up with a vp ancillary Peptic ulcer disease Stable Continue PPI Anxiety/depression Appears slightly anxious at this time Continue Cymbalta and Klonopin History of migraines Currently asymptomatic Continue Topamax DVT/GI prophylaxis: In place Care plan d/w patient, her family members at bedside and RN Kristi Shah MD * Enriqueta Moon RN - 01/30/2017 3:52 PM CDT Case Management Initial Assessment Case Management screen completed, welcome letter given. Lives with:: Son Family Support (name and phone): Extended Emergency Contact Information Primary Emergency Contact: Toi Sauer [facility] Relation: Spouse Secondary Emergency Contact: BalbirHenrique [facility] Relation: Father Anticipated Discharge Date: Anticipated Discharge Date: 02/01/17 Anticipated level of care at discharge: Home Prior Level of Functioning: independent Equipment at Home: Equipment At Home: None Additional Equipment needed at home (does not have at home now): PCP: Feliciano Dash MD If no PCP, action taken: Physician Followup Appointment(s) Made: No Pharmacy benefit: Yes SW Referral: no Readmission Risk Score: Readmit Risk Score Total: 9 If there is no score indicated, this patient has yet to be assessed for Readmission Risk. If patient requires HHC at discharge, he/she requests: n/a Transportation at discharge: Family Transportation to MD appointments:Drives self Comments: no discharge barriers Will continue to follow. For any questions or needs please contact: Oil Truck Driver Name/Phone number: Enriqueta Moon RN * Alyse Schaefer RN - 01/30/2017 5:51 AM CDT Shift Summary: Pt. A&Ox4 VSS on RA. Pt. Complains of back/hip pain, unrelieved by toredol, Dr. Romero notified, morphine ordered for pain and given with relief. IVF infusing per MAR, tolerating well. Pt. Up independently with cane, good UOP. Pt. Resting in bed with call light within reach. * Alyse Schaefer RN - 01/30/2017 5:50 AM CDT Problem: Pain/Discomfort Goal: Patient exhibits reduced pain/discomfort as evidenced by pain scores Outcome: Ongoing Pt. Complains of back/hip pain, unrelieved by titus, Dr. Romero notified, morphine ordered and given with relief. Will continue to monitor. Problem: Volume/Electrolyte Status Score Greater than/Equal to 2 Goal: Patient/family will verbalize understanding of maintaining proper hydration. Outcome: Ongoing Pt. Uses call light appropriately. No falls this shift. Will continue to monitor. * Jyoti Heredia - 01/29/2017 6:40 PM CDT Pharmacy Home Med Review Review Type: RX Student Informant: Patient;Pharmacy List Revisions: Added: Clonazepam, duloxetine 30 mg, other (CDB-THC patch), other (CDB-THC capsule), topiramate, trazodone Removed: Alprazolam, [id number], cyclobenzaprine, hydrocodone-acetaminophen,hydroxychloroquine, loperamide, melatonin, methotrexate, ranitidine Additional Info: Reconciled list with patient and [facility] pharmacy records. List Review Timing: Before provider reconciliation Jyoti Heredia 01/29/2017 6:39 PM documented in this encounter H&P Notes * Akira Romero MD - 01/29/2017 10:30 PM CDT HISTORY & PHYSICAL Admit Date: 01/29/2017 11:48 AM Cc: cough, fevers This is a 41 y.o. white female with hx RA, Meredith-Danlos, PUD, nephrolithiasis, anxiety, migraines who presents with 1-2 weeks of subjective fevers, dry cough and dyspnea along with fatigue. She alsoreports nausea but no vomiting, diarrhea,rashes, bleeding, dysuria. No headaches, vision loss, syncope. No sore throat. Her chronic low back pain as well as her joint pains from RA have worsened during this period of time and have become more painful. No sick contacts or unusual travel. She stoppedher imuran and aleyda injections last week when she started feeling sick and today when seeing her spinal specialist was told to come to the ER for evaluation. Past History Prescriptions Prior to Admission Medication Sig Dispense Refill ??? Other CDB-THC (1:1 ratio) 25 mg patch transdermal route every 24 hours. Obtains from [facility] in [place]. Reasons: Rhemuatoid arthiritis and Meredith-Danlos syndrome ??? Other CDB-THC (1:1 ratio) 10 mg capsule by mouth daily. Obtains from [facility] in [place]. Reasons: Rheumatoid arthritis and Meredith-Danlos syndrome ??? traZODone (DESYREL) 100 MG tablet Take 100 mg by mouth at bedtime ??? topiramate (TOPAMAX) 100 MG tablet Take 200 mg by mouth at bedtime Reasons: Migraine Headache ??? clonazePAM (KLONOPIN) 0.5 MG tablet Take 0.5 mg by mouth once daily as needed for Anxiety ??? DULoxetine (CYMBALTA) 30 MG capsule Take 30 mg by mouth once daily Takes with 60 mg (total daily dose: 90 mg) ? ? sucralfate (CARAFATE) 1 GM/10ML suspension Take 10 mL by mouth 4 times daily - before meals & nightly (Patient taking differently: Take 1 g by mouth as needed ) 420 mL 3 ??? pantoprazole EC (PROTONIX) 40 MG tablet TAKE 1 TABLET BY MOUTH TWICE DAILY BEFORE BREAKFAST ANDDINNER 60 Tab 3 ??? ondansetron, disintegrating, (ZOFRAN ODT) 4 MG tablet Dissolve 4 mg under the tongue every 12 hours as needed ??? SUMAtriptan Succinate 6 MG/0.5ML 1 injection at onset of migraine, may repeat 1 hour later if needed. Max 2 injections per 24 hours 0 ??? linaclotide (LINZESS) 145 MCG capsule Take [...] 30 mg (total daily dose: 90 mg) ??? azaTHIOprine (IMURAN) 50 MG tablet Take by mouth once daily Allergies Allergen Reactions ??? Ibuprofen Other Stomach ulcers Past Medical History: Diagnosis Date ??? Anxiety ??? Diverticulitis ??? Meredith-Danlos syndrome ??? Gastric ulcer ??? Gastritis ??? Kidney stones ??? Migraine ??? Rheumatoid arthritis Past Surgical History: Procedure Laterality Date ??? ACL RECONSTRUCTION Bilateral ??? COLONOSCOPY N/A 08/04/2015 N/A; COLONOSCOPY SCREEN ??? COLONOSCOPY N/A 12/15/2015 Normal exam; Dr. Corona ??? COLONOSCOPY WITH BIOPSY 12/15/2015 COLONOSCOPY BIOPSY ??? COLONOSCOPY WITH POLYPECTOMY 08/04/2015 COLONOSCOPY WITH REMOVAL OF TUMOR OR POLYP BY SNARE TECHNIQUE ??? ENDOSCOPY, COLON, DIAGNOSTIC ??? ENDOSCOPY, UPPER N/A 07/15/2015 N/A; ESOPHAGOGASTRODUODENOSCOPY (EGD) ??? ENDOSCOPY, UPPER 07/15/2015 ENDOSCOPY GI UPPER WITH BIOPSY ??? ENDOSCOPY, UPPER N/A 08/03/2015 N/A; ESOPHAGOGASTRODUODENOSCOPY (EGD) ??? ENDOSCOPY, UPPER 08/03/2015 ENDOSCOPY GI UPPER WITH BIOPSY ??? ENDOSCOPY, UPPER N/A 04/06/2016 neg h pylorigabriele ??? ENDOSCOPY, UPPER 04/06/2016 ENDOSCOPY GI UPPER WITH BIOPSY ??? GASTROENTEROLOGY PROCEDURE 08/04/2015 GASTROINTESTINAL TRACT IMAGING INTRALUMINAL ESOPHAGUS THROUGH ILEUM ??? Tonsillectomy Social History Substance Use Topics ??? Smoking status: Former Smoker Types: Cigarettes Quit date: 2014 ??? Smokeless tobacco: Never Used ??? Alcohol use 0.0 oz/week 0 Standard drinks or equivalent per week Comment: rare Family History Problem Relation Age of Onset ??? Arthritis - Osteo Father ??? Crohn's Disease Brother Review of Systems A 14 point comprehensive review of systems was negative except as described in HPI. Physical Exam Patient Vitals for the past 8 hrs: BP Temp Pulse Resp SpO2 01/30/17 0529 108/70 98 ??F 81 18 96 % 01/30/17 0106 123/79 97.6 ??F 81 18 95 % 01/30/17 0104 - - 80 19 - Intake/Output Summary (Last 24 hours) at 01/30/17 0635 Last data filed at 01/30/17 0619 Gross per 24 hour Intake 1096 ml Output 0 ml Net 1096 ml General appearance: alert, cooperative, no distress but anxious Head: normocephalic, without trauma Throat: no mucous membrane abnormalities Neck: no masses Lungs: breath sounds coarse; no rales or wheezes Heart: regular rate and rhythm, normal S1 and S2, without murmurs, gallops or rubs Abdomen: soft without mass, non-tender, with hypoactive bowel sounds Musculoskeletal: no edema - mild joint swelling hands/wrists Neurologic: no gross motor/sensory deficits Skin: no rashes ECG: NSR Data Review . Recent Labs Component Name 01/30/1724101/29/17121305/17/16 121 WBC 8.4 13.4* 9.1 RBC 3.93 4.60 4.70 HGB 11.2* 13.2 13.2 HCT 35.5* 40.8 41.3 MCV 90.3 88.7 87.9 MCHC 31.5 32.4 32.0 PLTCOUNT 311 356 305 NEUTPCT 85.6* 79.3* 73.6* LYMPHPCT 9.2* 13.3* 20.8 MONOCYTPCT 3.0* 4.3* 3.4* EOSINPCT 0.0 0.9 0.6 BASOPHILPCT 0.2 0.8 1.0 GRANSIMMPCT 2.0* 1.4* 0.6 NEUTABS 7.17* 10.65* 6.68 LYMPHABS 0.77* 1.79 1.88 MONOCYTABS 0.25* 0.58 0.31 EOSINABS 0.00 0.12 0.05 BASOABS 0.02 0.11* 0.09* IMMGRANSABS 0.17* 0.19* 0.05 . Recent Labs Component Name 01/30/1724101/29/17121305/17/16121308/27/15 1811 SODIUM 143 137 141 137 POTASSIUM 3.9 3.6 4.5 3.9 CHLORIDE 117* 108* 109* 109* CO2 16* 18* 23 19* BUN 11 13 14 12 CREATININE 0.81 0.93 0.97 0.94 GLUCOSE 132* 97 89 83 CALCIUM 7.9* 8.7 8.7 9.2 ALBUMIN - 3.3* 3.5 4.1 ALKPHOS - 70 72 85 ALT - 21 23 49 AST - 17 6 18 TBIL - 0.5 0.3 0.3 TPROT - 7.6 7.3 8.0 EGFR >60 >60 >[address] >[address] chest PE: DIAGNOSIS: Right upper lobe right middle lobe and right lower lobe groundglass lung infiltrates suggestive of pneumonia/pneumonitis and small right pleural effusion. Impression/plan 1. Sepsis - suspect atypical pneumonia possibly Chlamydia/Mycoplasma/Histoplasma given her course and immunosuppressed state. Will start IV rocephin/doxycycline to avoid QT prolongation, so dc levaquin. Continue IVFs. Check serologies and urine studies for atypical infections. Check viral resp pcr.Hold off on restarting immunosuppressants for now. Start albuterol nebs. 2. RA - off imuran, aleyda - was given dose of IV steroids in ER - reassess in am as to need for inpt Rheum evaluation. Pain control for low back pain with IV morphine prn with hx PUD avoid nsaids. 3. Meredith-Danlos 4. PUD - cont ppi 5. 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 Anxiety - on duloxetine, klonopin prn The patient is admitted with a diagnosis or diagnoses of Sepsis due to atypical pneumonia and current medical needs include IV abx, IVFs, nebs, diagnostic serologies. The patient has the following complex medical factors: RA, Meredith- Danlos, PUD. documented in this encounter Consult Notes * Omayra Molina, RADHA/LD - 01/30/2017 12:52 PM CDTAssociated Order(s): IP CONSULT TO NUTRITIONAL SERV CLINICAL NUTRITION ASSESSMENT Assessment: Pt seen for consult for wt loss and decreased appetite on initial nursing screen (MST 4). Pt reports fluctuating weight, but wt loss since starting a medication 2-3 months ago. Pt had gained wt, states up to 190 lb, now down to 166 lb which is her usual body wt. Pt reports not eating much food, butdrinking a glass of milk at breakfast, lunch and dinner. Per EHR, pt's documented standing wt on was 184.6 lb. Current wt is stated. Recommend obtaining scaled wt for accuracy and monitoring. Will request. Education provided on the benefit of Oral Nutrition Supplements (ONS) to aid with meeting calorie and protein needs and maintaining weight when po intake is poor. Pt states she does not care for Ensure of any variety, however agreeable to trying magic cup TID. Magic Cup (dysphagia supplement) provides 290 calories and 9g protein per serving. MAR and labs reviewed. Noted Zofran for nausea, Protonix for GI prophylaxis. Noted decreased H/H, will monitor. NOted elevated glucose of 132, pt receiving Solu- Medrol. No history of DM. Med/Surg History and Clinical Diagnoses: Dx: SOB, pna, sepsis, RA; PMH: RA, nephrolithiasis, gastric ulcer, meredith-dnlose syndrome, diverticulitis, anxiety. Height: 5' 4 (162.6 cm) Wt Readings from Last 5 Encounters: 01/29/17 166 lb (75.3 kg) 07/03/16 186 lb 3.2 oz (84.5 kg) 05/17/16 185 lb (83.9 kg) 04/06/16 180 lb (81.6 kg) 03/13/16 186 lb 12.8 oz (84.7 kg) IBW: 120# 133% IBW BMI: Body mass index is 28.49 kg/(m^2). BMI Range: Overweight Unintentional weight change:30 lb in 2-3 months per pt. Current diet order: Regular Current supplement order: will send magic cup TID Food Allergies: No known food allergies P.O.Intake for the past 48 hrs: No Data Recorded % Oral Supplement Intake: No Data Recorded GI Concerns: Anorexia Chewing/Swallowing: None Estimated Needs: KCAL: 1875 kcal (25 kcal/kg BW) Protein (g): 75 gm (1.0 gm/kg BW) Fluid (ml): 1 mL/kcal Needs based on: Kcal/kg- (Comment) Recommended Access Route: PO Labs: Recent Labs Component Name 01/30/17 0242 01/29/17 1214 SODIUM 143 137 POTASSIUM 3.9 3.6 CHLORIDE 117* 108* CO2 16* 18* BUN 11 13 CREATININE 0.81 0.93 GLUCOSE 132* 97 CALCIUM 7.9* 8.7 ALBUMIN - 3.3* ALKPHOS - 70 ALT - 21 AST - 17 TBIL - 0.5 TPROT - 7.6 EGFR >60 >60 No results for input(s): PHOS in the last 47321 hours.No results for input(s): HGBA1C in the last 17295 hours. No results for input(s): PREALBUMIN in the last 91016 hours. No data found. PERTINENT MEDICATIONS FOR CURRENT ENCOUNTER: ?? SCHEDULED MEDICATIONS: ?? 0.9% NaCl injection 3 mL, Intracatheter, q8h ?? cefTRIAXone (ROCEPHIN) 2,000 mg in 50 ml IVPB, Intravenous, q24h ?? dextromethorphan-guaiFENesin ER 12hr (MUCINEX DM) 30-600 MG tablet 1 tablet, Oral, BID ?? doxycycline hyclate (VIBRAMYCIN) 100 mg in 0.9% NaCl 110 mL IVPB, Intravenous, q12h ?? DULoxetine (CYMBALTA) capsule 30 mg, Oral, QDAY ?? DULoxetine (CYMBALTA) capsule 60 mg, Oral, QDAY ?? enoxaparin (LOVENOX) injection 40 mg, Subcutaneous, QDAY ?? iohexol (OMNIPAQUE 350) contrast, Intravenous, Contrast - Once ?? levalbuterol (XOPENEX) nebulizer solution 1.25 mg, Inhalation, q6h ?? linaCLOtide (LINZESS) capsule 145 mcg, Oral, QDAY BEFORE BREAKFAST ?? pantoprazole EC (PROTONIX) tablet 40 mg, Oral, BID AC ?? topiramate (TOPAMAX) tablet 200 mg, Oral, AT BEDTIME ?? traZODone (DESYREL) tablet 100 mg, Oral, AT BEDTIME ?? [COMPLETED] 0.9% NaCl IV Bolus, Intravenous, Now ?? [COMPLETED] 0.9% NaCl IV Bolus, Intravenous, Once ?? [COMPLETED] acetaminophen (TYLENOL) tablet 650 mg, Oral, Once ?? [COMPLETED] albuterol-ipratropium (DUO-NEB) nebulizer solution 3 mL, Inhalation, Now ?? [COMPLETED] influenza quadrivalent vac (FLULAVAL QUAD) injection (6 month +) 0.5 mL, Intramuscular, Immunization - Once ?? [COMPLETED] ketorolac (TORADOL) injection 30 mg, Intravenous, Once ?? [COMPLETED] LORazepam (ATIVAN) injection 2 mg, Intravenous, Once ?? [COMPLETED] methylPREDNISolone sod succ (SOLU-Medrol) injection 60 mg, Intravenous, Now ?? CONTINUOUS MEDICATIONS: ?? 0.45 % NaCl infusion, Intravenous, Continuous Skin/Wound: WDL Last BM: 01/29 Nutrition Diagnostic Statement: Inadequate oral intake related to: decreased appetite as evidenced by : 30 lb wt loss ACCOUNTS SPECIALIST Nutrition Intervention: Meals and snacks:;Medical Food Supplements:;Nutrition Education - Content Education needed: High Protein;Supplements Education provided Pt was educated on 01/30 Expected level of compliance: Good Following at moderate nutritional risk. Nutrition recommendation: agree with current nutrition order ?? Initiate Magic Cup TID ?? Obtain scaled wt. Monitoring: PO intake of meals and supplements Weights Labs (blood sugars) Evaluation: Nutrition Goal: Total intake will meet estimated nutrient needs Nutrition Goal Timeframe: Throughout stay Omayra Molina RD/JOHANA 01/30/2017 1:00 PM Ext. [id number] documented in this encounter OR Notes * Brief Op Note - Shani Hawley RN - 02/02/2017 1:19 AM CDT Shift Summary: Pt A&Ox4. New IV placed by ICU nurse. Abx hung. MD contacted for addition of PO pain meds. VSS.IV fluids and abx infused. Pt sleeping in bed in no apparent distress. Will continue to monitor. Call light w/ in reach. documented in this encounter ED Notes * Arabella Armenta RN - 01/29/2017 7:27 PM CDT Report received from ANTHONY Lewis * Joshua Balderas RN - 01/29/2017 7:21 PM CDT Report given to Germania CRUZ * Yulia Villafana MD - 01/29/2017 7:02 PM CDT Nurse said that the patient wants pain medication. She is being admitted for pneumonia. She has rheumatoid arthritis. She is on a marijuana program with the [facility]. She doesn't take narcotics regularily. 7:03 PM Face to face with the patient. She is frowning. She complains of pain in her back and her left hip. She is with her and 2 sons. Offered Ultram. She accepts. Encounter Diagnoses Name Primary? SOB (shortness of breath) Yes ??? Pneumonia of right lung due to infectious organism, unspecified part of lung ??? Sepsis, due to unspecified organism ??? Rheumatoid arthritis of hip, unspecified laterality, unspecified rheumatoid factor presence * Joshua Balderas RN - 01/29/2017 6:20 PM CDT Chart is available for review, submitted by Joshua CRUZ at [employer] [id number] Situation: Patient is a 41 y.o. female that came to the ER via Walk In with - Chief Complaint Patient presents with ??? Shortness of Breath sob and pain with deep inspiration x 2 weeks, had ct chest 2 weeks ago showing partial collapsed lung, productive cough . Problem started 2 weeks ago. B Background: Patient being admitted for Final diagnoses: SOB (shortness of breath) (Primary) Pneumonia of right lung due to infectious organism, unspecified part of lung Sepsis, due to unspecified organism Level of care General Medicine Significant medial/surgical history includes: Past Medical History: Diagnosis Date ??? Anxiety ??? Arthritis ??? Diverticulitis ??? Meredith-Danlos syndrome ??? Gastritis ??? Kidney stones ??? Migraine ??? Smoker e cigarettes ??? Ulcer Past Surgical History: Procedure Laterality Date ??? ACL RECONSTRUCTION Bilateral ??? COLONOSCOPY N/A 08/04/2015 N/A; COLONOSCOPY SCREEN ??? COLONOSCOPY N/A 12/15/2015 Normal exam; Dr. Corona ??? COLONOSCOPY WITH BIOPSY 12/15/2015 COLONOSCOPY BIOPSY ??? COLONOSCOPY WITH POLYPECTOMY 08/04/2015 COLONOSCOPY WITH REMOVAL OF TUMOR OR POLYP BY SNARE TECHNIQUE ??? ENDOSCOPY, COLON, DIAGNOSTIC ??? ENDOSCOPY, UPPER N/A 07/15/2015 N/A; ESOPHAGOGASTRODUODENOSCOPY (EGD) ??? ENDOSCOPY, UPPER 07/15/2015 ENDOSCOPY GI UPPER WITH BIOPSY ??? ENDOSCOPY, UPPER N/A 08/03/2015 N/A; ESOPHAGOGASTRODUODENOSCOPY (EGD) ??? ENDOSCOPY, UPPER 08/03/2015 ENDOSCOPY GI UPPER WITH BIOPSY ??? ENDOSCOPY, UPPER N/A 04/06/2016 neg h pylori, gabriele ??? ENDOSCOPY, UPPER 04/06/2016 ENDOSCOPY GI UPPER WITH BIOPSY ??? GASTROENTEROLOGY PROCEDURE 08/04/2015 GASTROINTESTINAL TRACT IMAGING INTRALUMINAL ESOPHAGUS THROUGH ILEUM ??? Tonsillectomy A Assessment: LOC: Alert and oriented 4 Lines/Drains/Airways (include gauge/location/fluids infusing as appropriate) 20 G right AC, infusing levaquin Cardiac Rhythm Normal Sinus Rhythm Explain any abnormals in physical assessment and/or vital signs : tachycardic, SOB, chest pain How was this addressed? Xray, CT, labs, fuids Outcome? HR 90s, admit R Recommendation: Equipment needs: IV pump VOV or no publicity: No Forensic Restraints/police custody: No Sitter: No Suicide Precautions: No Social concerns: No Belongings: Yes Safety concerns: Fall risk: No Isolation: none * Joshua Balderas RN - 01/29/2017 5:41 PM CDT Pt returned from CT * Lori Ervin RN - 01/29/2017 4:44 PM CDT As per MD orders, IV fluids increased in rate to 1000 mL per hour. * Joshua Balderas RN - 01/29/2017 3:58 PM CDT Pt updated on plan of care, medications given per MD CIERRA at bedside * Joshua Balderas RN - 01/29/2017 3:09 PM CDT at bedside * Joshua Balderas RN - 01/29/2017 2:37 PM CDT Spoke with Dandy GRADY, sepsis order set not appropriate for this pt * Joshua Balderas RN - 01/29/2017 2:15 PM CDT at bedside * Clinton Dorman DO - 01/29/2017 12:51 PM CDT Provider contact with the patient: 01/29/2017 12:51 Madalyn Sauer [id number] [facility] EMERGENCY [facility]PART[facility] History Chief Complaint Patient presents with ??? Shortness of Breath sob and pain with deep inspiration x 2 weeks, had ct chest 2 weeks ago showing partial collapsed lung, productive cough HPI Comments: Madalyn SAUER is a 41 y.o. female presenting to the ED with a chief complaint of severe shortness of breath that began a couple weeks ago but has gradually gotten worse over the last 4 days. Patient states she also has chills, fever, nausea, productive coughing, and runny nose. She states the coughing began 2 weeks ago, but the chills and fever began the last 4 days. Patient denies any vomiting, sore throat, chest pain, headaches, lightheadedness, or dizziness. She is a former smoker (for 20 years) but she denies a history of asthma and COPD. Patient is immunocompromise as she is on Methotrexate for RA. Past Medical History: Diagnosis Date ??? Anxiety ??? Arthritis ??? Diverticulitis ??? Meredith-Danlos syndrome ??? Gastritis ??? Kidney stones ??? Migraine ??? Smoker e cigarettes ??? Ulcer Past Surgical History: Procedure Laterality Date ??? ACL RECONSTRUCTION Bilateral ??? COLONOSCOPY N/A 08/04/2015 N/A; COLONOSCOPY SCREEN ??? COLONOSCOPY N/A 12/15/2015 Normal exam; Dr. Corona ??? COLONOSCOPY WITH BIOPSY 12/15/2015 COLONOSCOPY BIOPSY ??? COLONOSCOPY WITH POLYPECTOMY 08/04/2015 COLONOSCOPY WITH REMOVAL OF TUMOR OR POLYP BY SNARE TECHNIQUE ??? ENDOSCOPY, COLON, DIAGNOSTIC ??? ENDOSCOPY, UPPER N/A 07/15/2015 N/A; ESOPHAGOGASTRODUODENOSCOPY (EGD) ??? ENDOSCOPY, UPPER 07/15/2015 ENDOSCOPY GI UPPER WITH BIOPSY ??? ENDOSCOPY, UPPER N/A 08/03/2015 N/A; ESOPHAGOGASTRODUODENOSCOPY (EGD) ??? ENDOSCOPY, UPPER 08/03/2015 ENDOSCOPY GI UPPER WITH BIOPSY ??? ENDOSCOPY, UPPER N/A 04/06/2016 neg h pylorigabriele ??? ENDOSCOPY, UPPER 04/06/2016 ENDOSCOPY GI UPPER WITH BIOPSY ??? GASTROENTEROLOGY PROCEDURE 08/04/2015 GASTROINTESTINAL TRACT IMAGING INTRALUMINAL ESOPHAGUS THROUGH ILEUM ??? Tonsillectomy Family History Problem Relation Age of Onset ??? Arthritis - Osteo Father Social History Social History ??? Marital status: Spouse name: N/A ??? Number of children: N/A ??? Years of education: N/A Occupational History ??? Not on file. Social History Main Topics ??? Smoking status: Former Smoker Types: Cigarettes Quit date: 2014 ??? Smokeless tobacco: Never Used ??? Alcohol use 0.0 oz/week 0 Standard drinks or equivalent per week Comment: rare ??? Drug use: Yes Special: Marijuana Comment: canabis program-patches ??? Sexual activity: Yes Partners: Male Other Topics Concern ??? Not on file Social History Narrative Allergies Allergen Reactions ??? Ibuprofen Other Stomach ulcers Review of Systems Review of Systems Constitutional: Positive for chills and fever. HENT: Negative for hearing loss, sinus pain and sore throat. Runny nose Eyes: Negative for blurred vision and double vision. Respiratory: Positive for cough, sputum production (milky, white) and shortness of breath. Cardiovascular: Negative for chest pain and palpitations. Gastrointestinal: Negative for abdominal pain, diarrhea, nausea and vomiting. Genitourinary: Negative for dysuria and flank pain. Musculoskeletal: Negative for back pain and joint pain. Skin: Negative for rash. Neurological: Negative for dizziness (or lightheadedness), focal weakness and headaches. Psychiatric/Behavioral: Negative for suicidal ideas. The patient is not nervous/anxious. All other systems reviewed and are negative. Physical Exam BP 118/65 Pulse (!) 110 Temp 98.6 ??F Resp 20 Ht 1.626 m (5' 4 ) Wt 75.3 kg (166 lb) LMP 01/22/2017 SpO2 99% BMI 28.49 kg/m2 Physical Exam Constitutional: She is oriented to person, place, and time. She appears well- developed and well-nourished. No distress. Mild distress HENT: Head: Normocephalic and atraumatic. Right Ear: External ear normal. Left Ear: External ear normal. Nose: Nose normal. Eyes: Conjunctivae and EOM are normal. Pupils are equal, round, and reactive to light. Neck: Normal range of motion. Neck supple. Cardiovascular: Regular rhythm and normal heart sounds. Tachycardia present. No murmur heard. Pulmonary/Chest: Effort normal. No respiratory distress. She has wheezes (bilateral). Abdominal: Soft. There is no tenderness. There is no guarding. Musculoskeletal: Normal range of motion. She exhibits no edema. Neurological: She is alert and oriented to person, place, and time. She exhibits normal muscle tone. Skin: Skin is warm and dry. No erythema. Psychiatric: Her behavior is normal. Her mood appears anxious. Nursing note and vitals reviewed. Medications Current Outpatient Prescriptions Medication Sig Dispense Refill ??? azaTHIOprine (IMURAN) 50 MG tablet Take by mouth once daily ??? pantoprazole EC (PROTONIX) 40 MG tablet TAKE 1 TABLET BY MOUTH TWICE DAILY BEFORE BREAKFAST ANDDINNER 60 Tab 3 ??? SUMAtriptan Succinate 6 MG/0.5ML 1 injection at onset of migraine, may repeat 1 hour later if needed. Max 2 injections per 24 hours 0 ??? linaclotide (LINZESS) 145 MCG capsule Take 1 Cap by mouth daily before breakfast Take on an empty stomach at least 30 minutes prior to first meal of the day. 30 Cap 3 ??? hyoscyamine, disintergrating, (NULEV) 0.125 MG tablet Take 1 Tab by mouth every 3 hours as needed (abd pain) 30 Tab 0 ??? Methotrexate, PF, (RASUVO) 15 MG/0.3ML ? ? sucralfate (CARAFATE) 1 GM/10ML suspension Take 10 mL by mouth 4 times daily - before meals & nightly (Patient not taking: Reported on 01/29/2017) 420 mL 3 ??? HYDROcodone-acetaminophen (NORCO) 5-325 MG tablet Take 1 Tab by mouth every 4 hours as needed for Pain (Patient not taking: Reported on 07/03/2016) 15 Tab 0 ??? raNITIdine (ZANTAC) 150 MG tablet Take 1 Tab by mouth 2 times daily (Patient not taking: Reported on 01/29/2017) 60 Tab 3 ??? cyclobenzaprine (FLEXERIL) 5 MG tablet Take 5 mg by mouth 3 times daily as needed ??? melatonin 3 MG tablet Take 5 mg by mouth at bedtime ??? rfwgrybamw-ujyrbrkgmbjtf-qvagoezu (FIORICET) 50-325-40 MG tablet 1 Tab every 4 hours as needed for Headache Reported on 07/03/2016 90 Tab 1 ??? hydroxychloroquine (PLAQUENIL) 200 MG tablet 1 Tab once daily Reported on 07/03/2016 ??? ondansetron, disintegrating, (ZOFRAN ODT) 4 MG tablet 1 Tab 2 times daily as needed ??? ALPRAZolam (XANAX) 0.25 MG tablet Take 0.25 mg by mouth 3 times daily as needed for Anxiety Reported on 07/03/2016 ??? loperamide (IMODIUM) 2 MG capsule Take 1 Cap by mouth 4 times daily as needed for Diarrhea (Patient not taking: Reported on 01/29/2017) 30 Cap 0 ??? DULoxetine (CYMBALTA) 60 MG capsule Take 60 mg by mouth once daily Procedures Procedures ECG Interpretation Date/Time: 01/29/2017 12:20 PM Interpreted by ED provider Comparison: not compared with previous ECG Rhythm: sinus tachycardia Rate: tachycardic BPM: 100 Clinical impression: normal ECG ECG Rhythm Interpretation Lab Interpretation Oxygen Saturation Interpretation The oxygen saturation level is: 100%. The patient was on Room Air for the saturation measurement. Oxygen saturation interpretation is Normal. Intervention(s) used: None. Hospital Encounter on 01/29/17 INFLUENZA A+B ANTIGEN RAPID Result Value Ref Range Influenza A Ag Negative Negative Influenza B Ag Negative Negative CBC W AUTO DIFFERENTIAL Result Value Ref Range WBC 13.4 (H) 4.4 - 10.7 x10E9/L WBC Corrected x10E9/L RBC 4.60 3.80 - 5.20 x10E12/L Hgb 13.2 12.0 - 15.6 gm/dL HCT 40.8 35.9 - 45.5 % MCV 88.7 80.7 - 98.3 fl MCH 28.7 26.7 - 34.0 pg MCHC 32.4 30.8 - 35.9 gm/dL Plt Ct 356 153 - 416 x10E9/L RDW-CV 13.2 12.1 - 14.9 % MPV 8.7 (L) 9.4 - 12.9 fl Neutro 79.3 (H) 44.0 - 73.0 % Lymph 13.3 (L) 20.0 - 43.0 % [place] 4.3 (L) 5.0 - 13.0 % Eos 0.9 0.0 - 6.0 % Baso 0.8 0.0 - 2.0 % Immature Grans 1.4 (H) 0 - 1 % Neutro Abs 10.65 (H) 2.01 - 7.14 x10E9/L Lymph Abs 1.79 1.07 - 3.94 x10E9/L [place] Abs 0.58 0.26 - 1.07 x10E9/L Eosin Abs 0.12 0 - 0.47 x10E9/L Baso Abs 0.11 (H) 0 - 0.08 x10E9/L Immature Grans (Abs) 0.19 (H) 0.00 - 0.06 x10E9/L NRBC Auto 0 /100 WBC COMPREHENSIVE METABOLIC PANEL Result Value Ref Range Glucose 97 74 - 106 mg/dL Sodium 137 136 - 145 mmol/L Potassium 3.6 3.5 - 5.1 mmol/L Chloride 108 (H) 98 - 107 mmol/L CO2 18 (L) 22 - 31 mmol/L Calcium 8.7 8.5 - 10.1 mg/dL Anion Gap 11 8 - 16 mmol/L BUN 13 7 - 21 mg/dL Creatinine 0.93 0.50 - 1.30 mg/dL Alk Phos 70 38 - 126 U/L ALT/SGPT 21 13 - 61 U/L AST/SGOT 17 5 - 40 U/L Protein Total 7.6 6.4 - 8.2 gm/dL Albumin 3.3 (L) 3.4 - 5.0 gm/dL Bili Total 0.5 0.2 - 1.0 mg/dL eGFR MDRD >60 >60 mL/min/1.73m2 eGFR MDRD AFR AMR >60 >60 mL/min/1.73m2 LACTIC ACID BLOOD Result Value Ref Range Lactic Acid 1.7 0.7 - 2.1 mmol/L D-DIMER Result Value Ref Range D-Dimer mg/L FEU 0.71 (H) 0.17 - 0.5 mg/L FEU HCG URINE QUALITATIVE - POINT OF CARE (IP) Result Value Ref Range HCG Qual Urine Negative Negative QC Verified Yes Yes CT CHEST PE Final Result CT angiogram chest HISTORY: Shortness of breath. TECHNIQUE: Multiple contiguous axial images of the chest were obtained following intervenous ministration 100 cc Omnipaque 350. MIP images were created at the CT console. The heart size is normal. There is no pericardial effusion. There are mildly prominent noncalcified right hilar lymph nodes and there are numerous calcified left hilar lymph nodes. There is no pericardial effusion. The vascular structures enhance normally. No pulmonary embolism is seen There are diffuse groundglass right upper lobe and right middle lobe and right lower lobe lung infiltrates suggesting pneumonia/pneumonitis. A small right pleural effusion is present The visualized structures the upper abdomen are normal DIAGNOSIS: Right upper lobe right middle lobe and right lower lobe groundglass lung infiltrates suggestive of pneumonia/pneumonitis and small right pleural effusion. XR CHEST PA AND LATERAL Final Result Chest x-ray 2 views. HISTORY: Shortness of breath. 2 views the chest show normal heart size with normal vessels. Lungs are clear. IMPRESSION Clear lungs. Progress Notes 12:56 PM: Saw and evaluated patient. Answered all of patient's questions and concerns. Initial Plan: Will order labs, EKG, and CXR. Patient will be given Tylenol, Ativan, DuoNeb. Patientagrees with plan. 2:27 PM: I re-evaluated the patient???s medical condition, comfort, and provided a care update. Reassessed patient after second breathing treatment. Breathing has improved. 3:10 PM: I re-evaluated the patient???s medical condition, comfort, and provided a care update. Patient is more calm. Still tachycardic. Will bolus 2L and order D-Dimer. 3:53 PM: I re-evaluated the patient???s medical condition, comfort, and provided a care update. HR is 113. 4:21 PM: D-Dimer is elevated. Will order CT-PE. 5:31 PM: I re-evaluated the patient???s medical condition, comfort, and provided a care update. Pain has improved. HR is 97. 5:35 PM: I discussed with BRITT Covarrubias for Dr. Vidal ([facility]) all pertinent aspects of the case including HPI details, physical exam findings, testing completed, medications given, the pt's current condition, my clinical impression, and the need for admission for further evaluation and treatment. BRITT Covarrubias agrees to accept the patient at this time for Dr. Vidal. We have agreed on an initial plan toadmit for inpatient status. The patient understands and agrees with the plan. Vitals prior to admission: Blood pressure 110/64, pulse 99, temperature 98.6 ??F, resp. rate 27, height 1.626 m (5' 4 ), weight 75.3 kg (166 lb), last menstrual period 01/22/2017, SpO2 94 %, not currently . 5:40 PM: CT results came back, revealing pneumonia. Sepsis is just now confirmed. Will initiate Sepsis protocol. 5:48 PM: Updated patient on CTPE results. Discussed admission plan. Patient is agreeable. ED Course ED Course Medical Decision Making I have reviewed the: Previous Chart, Nursing Notes, Vitals. I have interpreted the following results: Labs, 12 Lead EKG, X-Ray, CT Scans and Oxygen Saturation. Orders Placed This Encounter ??? INFLUENZA A+B ANTIGEN RAPID ??? CULTURE BLOOD ??? XR CHEST PA AND LATERAL ??? CT CHEST PE ??? CBC W AUTO DIFFERENTIAL ??? COMPREHENSIVE METABOLIC PANEL ??? LACTIC ACID BLOOD ??? D-DIMER ??? OXYGEN ??? INITIATE RT BRONCHODILATOR PROTOCOL ??? START ED RT BRONCHODILATOR PROTOCOL ??? HCG URINE QUALITATIVE - POINT OF CARE (IP) ??? EKG 12-LEAD ??? AND Linked Order Group ??? 0.9% NaCl injection 3 mL ??? 0.9% NaCl injection 1-10 mL ??? albuterol-ipratropium (DUO-NEB) nebulizer solution 3 mL ??? FOLLOWED BY Linked Order Group ??? 0.9% NaCl IV Bolus ??? 0.9% NaCl infusion ??? acetaminophen (TYLENOL) tablet 650 mg ??? albuterol-ipratropium (DUO-NEB) nebulizer solution 3 mL ??? methylPREDNISolone sod succ (SOLU-Medrol) injection 60 mg ??? LORazepam (ATIVAN) injection 2 mg ??? 0.9% NaCl IV Bolus ??? iohexol (OMNIPAQUE 350) contrast ??? ketorolac (TORADOL) injection 30 mg ??? levoFLOXacin (LEVAQUIN) 750 mg in 150 mL IVPB Clinical Impression Final diagnoses: SOB (shortness of breath) (Primary) Pneumonia of right lung due to infectious organism, unspecified part of lung Sepsis, due to unspecified organism Disposition: Admit to General Medicine. By signing my name below, I, Hellen Tavarez, attest that this documentation has been prepared under the direction and in the presence of Dr. Dorman. Electronically Signed: Bradley Ruiz. 01/29/2017 6:10 PM I, Dr. Dorman, personally performed the services described in this documentation. All medical record entries made by the scribe were at my direction and in my presence. I have reviewed the chart anddischarge instructions and agree that the record reflects my personal performance and is accurate and complete. Dr. Dorman, 01/29/2017 6:10 PM * Lori Ervin RN - 01/29/2017 12:44 PM CDT Respiratory administered meds and patient breathing is improved. * Lori Ervin RN - 01/29/2017 12:20 PM CDT Pt is here for SOB and cough with burning pain localized to the RLL. Two weeks ago the pt experienced a pop in her back and went to the ER, and they stated she may have had a popped disc and stated she had atelectasis on her CT. Since then she has had SOB and the last four days the SOB has beenexacerbated, and pt has noticed white, milky phlegm. She also reports pain upon inspiration and expiration. * Leann Woodard RN - 01/29/2017 11:48 AM CDT Bed: 16 Expected date: Expected time: Means of arrival: Comments: carlee documented in this encounter Plan of Treatment Scheduled Orders Name Type Priority Associated Diagnoses Order Schedule INITIATE RT BRONCHODILATOR PROTOCOL Respiratory Care STAT ONCE for 1 Occurrences starting 01/29/2017 until 01/29/2017 START ED RT BRONCHODILATOR PROTOCOL Respiratory Care STAT ONCE for 1 Occurrences starting 01/29/2017 until 01/29/2017 documented as of this encounter Goals Goal Patient Goal Type Associated Problems Recent Progress Patient-Stated? Author Yearly PCP visit Lifestyle No Rukhsana Lazo MA documented as of this encounter Procedures Procedure Name Priority Date/Time Associated Diagnosis Comments CARDIAC EKG ORDER 02/04/2017 11: 51 PM CDT XR CHEST 2VW Routine 02/01/2017 7:51 AM CDT SOB (shortness of breath) Pneumonia of right lung due to infectious organism, unspecified part of lung CBC W AUTO DIFFERENTIAL AM Draw 02/01/2017 3:29 AM CDT BASIC METABOLIC PANEL (CALCIUM TOTAL) AM Draw 02/01/2017 3:29 AM CDT BASIC METABOLIC PANEL (CALCIUM TOTAL) AM Draw 01/31/2017 2:43 AM CDT CBC W AUTO DIFFERENTIAL AM Draw 01/31/2017 2:42 AM CDT MYCOPLASMA PNEUMONIAE AB IGG/IGM PANEL AM Draw 01/30/2017 2:42 AM CDT CHLAMYDIA ANTIBODY IGG/IGM PANEL AM Draw 01/30/2017 2:42 AM CDT CBC W AUTO DIFFERENTIAL AM Draw 01/30/2017 2:42 AM CDT BASIC METABOLIC PANEL (CALCIUM TOTAL) AM Draw 01/30/2017 2:42 AM CDT HISTOPLASMA GALACTOMANNAN AG URINE Routine 01/29/2017 10:37 PM CDT RESPIRATORY PATHOGEN PANEL BY PCR Routine 01/29/2017 10:36 PM CDT CULTURE BLOOD Timed 01/29/2017 6:59 PM CDT CULTURE BLOOD Timed 01/29/2017 6:[address] ANGIO CHEST PULM EMBOLISM STAT 01/29/2017 5:23 PM CDT SOB (shortness of breath) HCG URINE QUALITATIVE - POINT OF CARE STAT 01/29/2017 4:45 PM CDT D-DIMER STAT 01/29/2017 3:57 PM CDT INFLUENZA A+B ANTIGEN RAPID STAT 01/29/2017 1:38 PM CDT EKG 12-LEAD STAT 01/29/2017 12:20 PM CDT SOB (shortness of breath) CBC W AUTO DIFFERENTIAL STAT 01/29/2017 12:14 PM CDT COMPREHENSIVE METABOLIC PANEL STAT 01/29/2017 12:14 PM CDT LACTIC ACID BLOOD STAT 01/29/2017 12: 14 PM CDT XR CHEST 2VW STAT 01/29/2017 11:54 AM CDT SOB (shortness of breath) documented in this encounter Results * CARDIAC EKG ORDER (02/04/2017 11:51 PM CDT) Narrative 02/04/2017 11:51 PM CDT Ordered by an unspecified provider. Scanned Document CARDIAC SERVICES ORD ERABLES * XR CHEST PA AND LATERAL (02/01/2017 7:51 AM CDT) Anatomical Region Laterality Modality Chest Radio Fluoroscop y 02/01/2017 8:42 AM CDT Narrative 02/01/2017 8:42 AM CDT Exam: PA and lateral views of the chest. History: Shortness of breath Findings/Impression: Comparison is made with the prior exam of January 29, 2017. No focal consolidation, pleural effusion, or pneumothorax is identified. The cardiac silhouette and mediastinal contours are normal. Procedure Note Shahzad Sanchez MD - 02/01/2017 Exam: PA and lateral views of the chest. History: Shortness of breath Findings/Impression: Comparison is made with the prior exam of January 29, 2017. No focal consolidation, pleural effusion, or pneumothorax is identified. The cardiac silhouette and mediastinal contours are normal. Kristi Shah MD DIAGNOSTIC IMAGING O RDERABLES * (ABNORMAL) BASIC METABOLIC PANEL (CALCIUM TOTAL) (02/01/2017 3:29 AM CDT) Glucose 81 74 - 106 mg/dL 02/01/2017 4:48 AM CDT [facility] Sodium 139 136 - 145 mmol/L 02/01/2017 4:48 AM CDT [facility] Potassium 3.5 3.5 - 5.1 mmol/L 02/01/2017 4:48 AM CDT [facility] Chloride 112(H) 98 - 107 mmol/L 02/01/2017 4:48 AM CDT [facility] CO2 19(L) 22 - 31 mmol/L 02/01/2017 4:48 AM CDT [facility] Calcium 8.3(L) 8.5 - 10.1 mg/dL 02/01/2017 4:48 AM CDT [facility] Anion Gap 8 8 - 16 mmol/L 02/01/2017 4:48 AM CDT [facility] BUN 8 7 - 21 mg/dL 02/01/2017 4:48 AM CDT [facility] Creatinine 0.76 0.50 - 1.30 mg/dL 02/01/2017 4:48 AM CDT [facility] eGFR by MDRD >60 >60 mL/min/1.7 3m2 02/01/2017 4:48 AM CDT [facility] eGFR by MDRD >60 >60 mL/min/1.7 3m2 02/01/2017 4:48 AM CDT [facility] Blood BLOOD SPECIMEN / Unknown Lab Venipuncture / Unknown 02/01/2017 3:29 AM CDT 02/01/2017 4:22 AM CDT Kristi Shah MD LAB - CHEMISTRY [facility] Organization Address City/State/ZIP Co de Phone Number [facility] [address] [place] [address] * (ABNORMAL) CBC W AUTO DIFFERENTIAL (02/01/2017 3:29 AM CDT) WBC 7.2 4.4 - 10.7 x10E9/L 02/01/2017 4:35 AM CDT [facility] WBC Corrected x10E9/L 02/01/2017 4:35 AM CDT [facility] RBC 3.88 3.80 - 5.20 x10E12/L 02/01/2017 4:35 AM CDT [facility] Hemoglobin 11.3(L) 12.0 - 15.6 gm/dL 02/01/2017 4:35 AM CDT [facility] Hematocrit 35.1(L) 35.9 - 45.5 % 02/01/2017 4:35 AM CDT [facility] MCV 90.5 80.7 - 98.3 fl 02/01/2017 4:35 AM CDT [facility] MCH 29.1 26.7 - 34.0 pg 02/01/2017 4:35 AM CDT [facility] MCHC 32.2 30.8 - 35.9 gm/dL 02/01/2017 4:35 AM CDT [facility] Platelet Count 313 153 - 416 x10E9/L 02/01/2017 4:35 AM CDT [facility] RDW-CV 13.4 12.1 - 14.9 % 02/01/2017 4:35 AM CDT [facility] MPV 8.7(L) 9.4 - 12.9 fl 02/01/2017 4:35 AM CDT [facility] Neutrophils % 55.7 44.0 - 73.0 % 02/01/2017 4:35 AM CDT [facility] Lymphocytes % 30.7 20.0 - 43.0 % 02/01/2017 4:35 AM CDT [facility] Monocytes % 6.0 5.0 - 13.0 % 02/01/2017 4:35 AM CDT [facility] Eosinophils % 3.5 0.0 - 6.0 % 02/01/2017 4:35 AM CDT [facility] Basophils % 1.0 0.0 - 2.0 % 02/01/2017 4:35 AM CDT [facility] Immature Granulocytes 3.1(H) 0 - 1 % 02/01/2017 4:35 AM CDT [facility] Neutrophil Absolute 3.99 2.01 - 7.14 x10E9/L 02/01/2017 4:35 AM CDT [facility] Lymphocytes Absolute 2.20 1.07 - 3.94 x10E9/L 02/01/2017 4:35 AM CDT [facility] Monocytes Absolute 0.43 0.26 - 1.07 x10E9/L 02/01/2017 4:35 AM CDT [facility] Eosinophils Absolute 0.25 0 - 0.47 x10E9/L 02/01/2017 4:35 AM CDT [facility] Basophils Absolute 0.07 0 - 0.08 x10E9/L 02/01/2017 4:35 AM CDT [facility] Immature Granulocytes Absolute 0.22(H) 0.00 - 0.06 x10E9/L 02/01/2017 4:35 AM CDT [facility] nRBC Auto 0 /100 WBC 02/01/2017 4:35 AM CDT [facility] Blood BLOOD SPECIMEN / Unknown Lab Venipuncture / Unknown 02/01/2017 3:29 AM CDT 02/01/2017 4:22 AM CDT Kristi Shah MD LAB - HEMATOLOGY ORD ERABLES [facility] [address] [place] [address] * (ABNORMAL) BASIC METABOLIC PANEL (CALCIUM TOTAL) (01/31/2017 2:43 AM CDT) [facility] Glucose 86 74 - 106 mg/dL 01/31/2017 4:22 AM CDT [facility] Sodium 143 136 - 145 mmol/L 01/31/2017 4:22 AM CDT [facility] Potassium 4.0 3.5 - 5.1 mmol/L 01/31/2017 4:22 AM CDT [facility] Chloride 115(H) 98 - 107 mmol/L 01/31/2017 4:22 AM CDT [facility] CO2 21(L) 22 - 31 mmol/L 01/31/2017 4:22 AM CDT [facility] Calcium 7.9(L) 8.5 - 10.1 mg/dL 01/31/2017 4:22 AM CDT [facility] Anion Gap 7(L) 8 - 16 mmol/L 01/31/2017 4:22 AM CDT [facility] BUN 10 7 - 21 mg/dL 01/31/2017 4:22 AM CDT [facility] Creatinine 0.85 0.50 - 1.30 mg/dL 01/31/2017 4:22 AM CDT [facility] eGFR by MDRD >60 >60 mL/min/1.7 3m2 01/31/2017 4:22 AM CDT [facility] eGFR by MDRD >60 >60 mL/min/1.7 3m2 01/31/2017 4:22 AM CDT [facility] Blood BLOOD SPECIMEN / Unknown Lab Venipuncture / Unknown 01/31/2017 2:43 AM CDT 01/31/2017 3:57 AM CDT Kristi Shah MD LAB - CHEMISTRY [facility] Organization Address City/State/ZIP Co de Phone Number [facility] [address] [place] [address] * (ABNORMAL) CBC W AUTO DIFFERENTIAL (01/31/2017 2:42 AM CDT) WBC 7.9 4.4 - 10.7 x10E9/L 01/31/2017 4:15 AM CDT [facility] WBC Corrected x10E9/L 01/31/2017 4:15 AM CDT [facility] RBC 3.79(L) 3.80 - 5.20 x10E12/L 01/31/2017 4:15 AM CDT [facility] Hemoglobin 10.8(L) 12.0 - 15.6 gm/dL 01/31/2017 4:15 AM CDT [facility] Hematocrit 34.9(L) 35.9 - 45.5 % 01/31/2017 4:15 AM CDT [facility] MCV 92.1 80.7 - 98.3 fl 01/31/2017 4:15 AM CDT [facility] MCH 28.5 26.7 - 34.0 pg 01/31/2017 4:15 AM CDT [facility] MCHC 30.9 30.8 - 35.9 gm/dL 01/31/2017 4:15 AM CDT [facility] Platelet Count 296 153 - 416 x10E9/L 01/31/2017 4:15 AM CDT [facility] RDW-CV 13.4 12.1 - 14.9 % 01/31/2017 4:15 AM CDT [facility] MPV 8.9(L) 9.4 - 12.9 fl 01/31/2017 4:15 AM CDT [facility] Neutrophils % 55.5 44.0 - 73.0 % 01/31/2017 4:15 AM CDT [facility] Lymphocytes % 31.9 20.0 - 43.0 % 01/31/2017 4:15 AM CDT [facility] Monocytes % 6.4 5.0 - 13.0 % 01/31/2017 4:15 AM CDT [facility] Eosinophils % 2.9 0.0 - 6.0 % 01/31/2017 4:15 AM CDT [facility] Basophils % 0.8 0.0 - 2.0 % 01/31/2017 4:15 AM CDT [facility] Immature Granulocytes 2.5(H) 0 - 1 % 01/31/2017 4:15 AM CDT [facility] Neutrophil Absolute 4.39 2.01 - 7.14 x10E9/L 01/31/2017 4:15 AM CDT [facility] Lymphocytes Absolute 2.53 1.07 - 3.94 x10E9/L 01/31/2017 4:15 AM CDT [facility] Monocytes Absolute 0.51 0.26 - 1.07 x10E9/L 01/31/2017 4:15 AM CDT [facility] Eosinophils Absolute 0.23 0 - 0.47 x10E9/L 01/31/2017 4:15 AM CDT [facility] Basophils Absolute 0.06 0 - 0.08 x10E9/L 01/31/2017 4:15 AM CDT [facility] Immature Granulocytes Absolute 0.20(H) 0.00 - 0.06 x10E9/L 01/31/2017 4:15 AM CDT [facility] nRBC Auto 0 /100 WBC 01/31/2017 4:15 AM CDT [facility] Blood BLOOD SPECIMEN / Unknown Lab Venipuncture / Unknown 01/31/2017 2:42 AM CDT 01/31/2017 3:57 AM CDT Kristi Shah MD LAB - HEMATOLOGY ORD ERABLES [facility] [address] [place] [address] * (ABNORMAL) CHLAMYDIA ANTIBODY IGG/IGM PANEL (01/30/2017 2:42 AM CDT) Chlamydia psittaci Antibody IgM <1:10 Neg:<1:10 02/01/2017 5:10 PM CDT [facility] ([facility] Comment: This test was developed and its performance characteristics determined by [facility]. ??It has not been cleared or approved by the Food and Drug Administration. ??The FDA has determined that such clearance or approval is not necessary. Chlamydia psittaci Antibody IgG <1:16 Neg:<1:16 02/01/2017 5:10 PM CDT [facility] Comment: This test was developed and its performance characteristics determined by [facility]. ??It has not been cleared or approved by the Food and Drug Administration. ??The FDA has determined that such clearance or approval is not necessary. Chlamydia pneumoniae Antibody IgM <1:16 Neg:<1:16 02/01/2017 5:10 PM CDT [facility] Test Information Comment 02/02/20 17 5:10 PM CDT [facility] Comment: This test was developed and its performance characteristics determined by [facility]. It has not been cleared or approved by the Food and Drug Administration. The FDA has determined that such clearance or approval is not necessary. Results of this test are for investigational purposes only. ??The result should not be used as a diagnostic procedure without confirmation of the diagnosis by another medically established diagnostic product or procedure. Chlamydia pneumoniae Antibody IgG <1:10 Neg:<1:10 02/01/2017 5:10 PM CDT [facility] ([facility]) Chlamydia trachomatis Antibody IgM <0.8 0.0 - 0.7 index 02/01/2017 5:10 PM CDT [facility] Comment: ?Negative ? <0.8 ?Borderline ?0.8 - 1.0 ?Positive ? >1.0 Results for this test are for research purposes only by the assay's lift team technician. ??The performance characteristics of this product have not been established. ??Results should not be used as a diagnostic procedure without confirmation of the diagnosis by another medically established diagnostic product or procedure. Chlamydia Antibody IgG 1.18(H) 0.00 - 0.90 ratio 02/01/2017 5:10 PM CDT [facility] ([facility] Comment: ?Negative ? <0.91 ?Equivocal ??0.91 - 1.09 ?Positive ? >1.09 Blood BLOOD SPECIMEN / Unknown Lab Venipuncture / Unknown 01/30/2017 2:42 AM CDT 01/30/2017 3:08 AM CDT [facility]ative [facility] - 02/01/2017 5:10 PM CDT Performed at: ??01 - [facility] [address] ??[id number] [employer] Reconditioner: Curtis Sanchez MD, Phone: ??[phone] Akira Romero MD LAB - CHEMISTRY [place] [facility] ([facility] [address] [place] [address] * MYCOPLASMA PNEUMO ANTIBODY IGG/IGM PANEL (01/30/2017 2:42 AM CDT) Mycoplasma pneumoniae Antibody IgG <100 0 - 99 U/mL 01/31/2017 4:21 PM CDT [facility] ([facility] Comment: ? Negative: ? <100 ? Indeterminate: 100 - 320 ? Positive: ? >320 The reference interval established is intended as a baseline only. ??Values >100 may indicate a recent infection with Mycoplasma pneumoniae and need to be confirmed either by a positive IgM result and/or an additional specimen drawn 2-4 weeks later showing a significant increase in antibody levels. Mycoplasma pneumoniae Antibody IgM <770 0 - 769 U/mL 01/31/2017 4:21 PM CDT [facility] ([facility] Comment: ? Negative ?<770 Clinically significant amount of M. pneumoniae antibody not detected. ? Low Positive ?? 770 - 950 M. pneumoniae specific IgM presumptively detected. ??It is recommended that another sample be collected 1-2 weeks later to assure reactivity. ? Positive ?>950 Highly significant amount of M. pneumoniae specific IgM antibody detected. Blood BLOOD SPECIMEN / Unknown Lab Venipuncture / Unknown 01/30/2017 2:42 AM CDT 01/30/2017 3:08 AM CDT Narrative [facility] - 01/31/2017 4:21 PM CDT Performed at: ??01 - [facility] [address] [place] [address] ??[phone] [employer] Re[employer]er: Mahendra Trevino PhD, Phone: ??[phone] Akira Romero MD LAB - SEROLOGY ORDER BOB Performing Organization Address City/State/[facility] Co de Phone Number [facility] ([facility] [address] [place] [address] * (ABNORMAL) CBC W AUTO DIFFERENTIAL (01/30/2017 2:42 AM CDT) WBC 8.4 4.4 - 10.7 x10E9/L 01/30/2017 3:30 AM CDT [facility] WBC Corrected x10E9/L 01/30/2017 3:30 AM CDT [facility] RBC 3.93 3.80 - 5.20 x10E12/L 01/30/2017 3:30 AM CDT [facility] Hemoglobin 11.2(L) 12.0 - 15.6 gm/dL 01/30/2017 3:30 AM CDT [facility] Hematocrit 35.5(L) 35.9 - 45.5 % 01/30/2017 3:30 AM CDT [facility] MCV 90.3 80.7 - 98.3 fl 01/30/2017 3:30 AM CDT [facility] MCH 28.5 26.7 - 34.0 pg 01/30/2017 3:30 AM CDT [facility] MCHC 31.5 30.8 - 35.9 gm/dL 01/30/2017 3:[facility] Platelet Count 311 153 - 416 x10E9/L 01/30/2017 3:30 AM [facility] RDW-CV 13.1 12.1 - 14.9 % 01/30/2017 3:30 AM [facility] MPV 8.8(L) 9.4 - 12.9 fl 01/30/2017 3:30 AM [facility] Neutrophils % 85.6(H) 44.0 - 73.0 % 01/30/2017 3:30 AM [facility] Lymphocytes % 9.2(L) 20.0 - 43.0 % 01/30/2017 3:30 AM CDT [facility] Monocytes % 3.0(L) 5.0 - 13.0 % 01/30/2017 3:30 AM [facility] Eosinophils % 0.0 0.0 - 6.0 % 01/30/2017 3:30 AM CDT [facility] Basophils % 0.2 0.0 - 2.0 % 01/30/2017 3:30 AM CDT [facility] Immature Granulocytes 2.0(H) 0 - 1 % 01/30/2017 3:30 AM CDT [facility] Neutrophil Absolute 7.17(H) 2.01 - 7.14 x10E9/L 01/30/2017 3:30 AM CDT [facility] Lymphocytes Absolute 0.77(L) 1.07 - 3.94 x10E9/L 01/30/2017 3:30 AM CDT [facility] Monocytes Absolute 0.25(L) 0.26 - 1.07 x10E9/L 01/30/2017 3:30 AM CDT [facility] Eosinophils Absolute 0.00 0 - 0.47 x10E9/L 01/30/2017 3:30 AM CDT [facility] Basophils Absolute 0.02 0 - 0.08 x10E9/L 01/30/2017 3:30 AM CDT [facility] Immature Granulocytes Absolute 0.17(H) 0.00 - 0.06 x10E9/L 01/30/2017 3:30 AM CDT [facility] nRBC Auto 0 /100 WBC 01/30/2017 3:30 AM CDT [facility] Blood BLOOD SPECIMEN / Unknown Lab Venipuncture / Unknown 01/30/2017 2:42 AM CDT 01/30/2017 3:08 AM CDT Clinton Dorman DO LAB - HEMATOLOGY ORD ERABLES [facility] [address] [place] [address] * (ABNORMAL) BASIC METABOLIC PANEL (CALCIUM TOTAL) (01/30/2017 2:42 AM CDT) Glucose 132(H) 74 - 106 mg/dL 01/30/2017 3:57 AM CDT [facility] Sodium 143 136 - 145 mmol/L 01/30/2017 3:57 AM CDT [facility] Potassium 3.9 3.5 - 5.1 mmol/L 01/30/2017 3:57 AM CDT [facility] Chloride 117(H) 98 - 107 mmol/L 01/30/2017 3:57 AM CDT [facility] CO2 16(L) 22 - 31 mmol/L 01/30/2017 3:57 AM CDT [facility] Calcium 7.9(L) 8.5 - 10.1 mg/dL 01/30/2017 3:57 AM CDT [facility] Anion Gap 10 8 - 16 mmol/L 01/30/2017 3:57 AM CDT [facility] BUN 11 7 - 21 mg/dL 01/30/2017 3:57 AM CDT [facility] Creatinine 0.81 0.50 - 1.30 mg/dL 01/30/2017 3:57 AM CDT [facility] eGFR by MDRD >60 >60 mL/min/1.7 3m2 01/30/2017 3:57 AM CDT [facility] eGFR by MDRD >60 >60 mL/min/1.7 3m2 01/30/2017 3:57 AM CDT [facility] Blood BLOOD SPECIMEN / Unknown Lab Venipuncture / Unknown 01/30/2017 2:42 AM CDT 01/30/2017 3:08 AM CDT Clinton Dorman DO LAB - CHEMISTRY [facility] [address] [place] [address] * HISTOPLASMA GALACTOMANNAN AG URINE (01/29/2017 10:37 PM CDT) [facility] Histoplasma galactomannan Antigen Urine <0.5 <0.5 ng/mL 02/01/2017 3:19 PM CDT [facility] ([facility] Disclaimer Comment 02/01/2017 3:19 PM CDT [facility] ([facility] Comment: This test was developed and its performance characteristics determined by [facility]. It has not been cleared or approved by the Food and Drug Administration. Urine URINE / Unknown Collection / Unknown 01/29/2017 10:37 PM CDT 01/29/2017 10:43 PM CDT Narrative [facility] ([facility]) - 02/01/2017 3:19 PM CDT Performed at: ??01 - [address] ??[id number] [employer]: Curtis Sanchez MD, Phone: ??[phone] Akira Romero MD LAB - URINE CHEMISTR Y ORDERABLES Performing Organization Address City/[facility]/ZIP Co de Phone Number [facility] ([facility] [address] [place] [address] * RESPIRATORY PATHOGEN PANEL BY PCR (01/29/2017 10:36 PM CDT) Pathologist [facility] [place] Adenovirus PCR Not detected Not detected, Invalid, Indeterminate 01/30/2017 5:53 AM CDT [facility] Human Metapneumovirus PCR Not detected Not detected, Invalid, Indeterminate 01/30/2017 5:53 AM T [facility] Human Rhinovirus/Entero virus PCR Not detected Not detected, Invalid, Indeterminate 01/30/2017 5:53 AM T [facility] Influenza A Non Subtyped PCR Not detected Not detected, Invalid, Indeterminate 01/30/2017 5:53 AM T [facility] Influenza A H1 PCR Not detected Not detected, Invalid, Indeterminate 01/30/2017 5:53 AM T [facility] Influenza A H3 PCR Not detected Not detected, Invalid, Indeterminate 01/30/2017 5:53 AM [facility] Influenza A H1 2009 PCR Not detected Not detected, Invalid, Indeterminate 01/30/2017 5:53 AM T [facility] Influenza B PCR Not detected Not detected, Invalid, Indeterminate 01/30/2017 5:53 AM [facility] Mycoplasma pneumoniae PCR Not detected Not detected, Invalid, Indeterminate 01/30/2017 5:53 AM [facility] Parainfluenza Virus 1 PCR Not detected Not detected, Invalid, Indeterminate 01/30/2017 5:53 AM [facility] Parainfluenza Virus 2 PCR Not detected Not detected, Invalid, Indeterminate 01/30/2017 5:53 AM [facility] Parainfluenza Virus 3 PCR Not detected Not detected, Invalid, Indeterminate 01/30/2017 5:53 AM [facility] Parainfluenza Virus 4 PCR Not detected Not detected, Invalid, Indeterminate 01/30/2017 5:53 AM [facility] Respiratory Syncytial Virus PCR Not detected Not detected, Invalid, Indeterminate 01/30/2017 5:53 AM [facility] Bordetella pertussis PCR Not detected Not detected, Invalid 01/30/2017 5:53 AM T [facility] Coronavirus PCR Not detected Not detected, Invalid, Indeterminate 01/30/2017 5:53 AM [facility] Microbiology NASOPHARYNGEAL SWAB / Unknown Collection / Unknown 01/29/2017 10:36 PM CDT 01/29/2017 10:42 PM CDT [facility] - 01/30/2017 5:53 AM CDT Coronavirus PCR detects the following coronaviruses: 229E, HKU1, NL63, OC43. Akira Romero MD LAB - MICROBIOLOGY O RDERAPOPEYE Performing Organization Address City/[facility]/ZIP Co de Phone Number [facility] [address] [place] [address], [facility] [phone] * CULTURE BLOOD (01/29/2017 6:59 PM CDT) Culture No growth day 5 [facility]UARD[facility] 02/04/2017 12:00 AM CDT [facility] Blood PERIPHERAL BLOOD / Unknown Venipuncture / Unknown 01/29/2017 6:59 PM CDT 01/29/2017 7:03 PM CDT Clinton Dorman DO LAB - MICROBIOLOGY O ASHLEIGH Performing Organization Address [facility] Co de Phone Number [facility] [address] [place] [address], [facility] [phone] * CULTURE BLOOD (01/29/2017 6:59 PM CDT) Culture No growth day 5 [facility] 02/04/2017 12:00 AM CDT [facility] Blood PERIPHERAL BLOOD / Unknown Venipuncture / Unknown 01/29/2017 6:59 PM CDT 01/29/2017 7:04 PM CDT Clinton Dorman DO LAB - MICROBIOLOGY O ASHLEIGH Performing Organization Address [facility]/ZIP Co de Phone Number [facility] [address] [place] [address], [facility] [phone] * CT CHEST PE (01/29/2017 5:23 PM CDT) Anatomical Region Laterality Modality Chest Computed Tomogra phy 01/29/2017 5:32 PM CDT Narrative 01/29/2017 5:[address] angiogram chest HISTORY: Shortness of breath. TECHNIQUE: Multiple contiguous axial images of the chest were obtained following intervenous ministration 100 cc Omnipaque 350. MIP images were created at the CT console. The heart size is normal. There is no pericardial effusion. There are mildly prominent noncalcified right hilar lymph nodes and there are numerous calcified left hilar lymph nodes. There is no pericardial effusion. The vascular structures enhance normally. No pulmonary embolism is seen There are diffuse groundglass right upper lobe and right middle lobe and right lower lobe lung infiltrates suggesting pneumonia/pneumonitis. A small right pleural effusion is present The visualized structures the upper abdomen are normal DIAGNOSIS: Right upper lobe right middle lobe and right lower lobe groundglass lung infiltrates suggestive of pneumonia/pneumonitis and small right pleural effusion. Procedure Note Akira De La Garza MD - 01/29/2017 CT angiogram chest HISTORY: Shortness of breath. TECHNIQUE: Multiple contiguous axial images of the chest were obtained following intervenous ministration 100 cc Omnipaque 350. MIP images were created at the CT console. The heart size is normal. There is no pericardial effusion. There are mildly prominent noncalcified right hilar lymph nodes and there are numerous calcified left hilar lymph nodes. There is no pericardial effusion. The vascular structures enhance normally. No pulmonary embolism is seen There are diffuse groundglass right upper lobe and right middle lobe and right lower lobe lung infiltrates suggesting pneumonia/pneumonitis. A small right pleural effusion is present The visualized structures the upper abdomen are normal DIAGNOSIS: Right upper lobe right middle lobe and right lower lobe groundglass lung infiltrates suggestive of pneumonia/pneumonitis and small right pleural effusion. Clinton Dorman DO CT ORDERABLES * HCG URINE QUALITATIVE - POINT OF CARE (IP) (01/29/2017 4:45 PM CDT) HCG Qual Urine Negative Negative [facility] QC Verified Yes Yes HC POC T TESTING Urine URINE / Unknown 01/29/2017 4 :45 PM CDT Clinton Dorman DO LAB - POINT OF CARE ORDERABLES [facility] [address] [phone] * (ABNORMAL) D-DIMER (01/29/2017 3:57 PM CDT) D-Dimer 0.71(H) 0.17 - 0.5 mg/L FEU 01/29/2017 4:14 PM CDT [facility] Blood BLOOD SPECIMEN / Unknown Venipuncture / Unknown 01/29/2017 3:57 PM CDT 01/29/2017 3:59 PM CDT Narrative [facility] - 01/29/2017 4:14 PM CDT The [employer] D-Dimer assay is intended for use as an aid in diagnosis of venous thromboembolism [(VTE): deep vein thrombosis (DVT), pulmonary embolism (PE), and disseminated intravascular coagulation (DIC)], and has received U.S. Food and Drug Administration (FDA) approval to exclude VTE in patients with low or moderate pretest probability of PE or DVT (per Wells' rules). At a clinical cut-off value 0.50 mg/L FEU, the Negative Predictive Value of this assay is 99.8% for excluding PE and 100% for excluding DVT. A very low percentage of patients with VTE may yield D-Dimer results below the cut-off value. An elevated D-Dimer result has low specificity (40.4% for PE, 35.5% for DVT) and is a poor predictor of VTE. An elevated D-Dimer result may indicate DIC in the appropriate clinical setting. Results of this test should always be interpreted in conjunction with the patient's medical history, clinical presentation, and other findings. Clinton Dorman DO LAB - COAGULATION OR DERABLES Performing Organization Address City/State/[facility] Co de Phone Number [facility] [address] [place] [address] * INFLUENZA A+B ANTIGEN RAPID (01/29/2017 1:38 PM CDT) [facility] Influenza A Antigen Negative Negative 01/29/2017 1:55 PM CDT [facility] Influenza B Antigen Negative Negative 01/29/2017 1:55 PM CDT [facility] Microbiology NASOPHARYNGEAL SWAB / Unknown Collection / Unknown 01/29/2017 1:38 PM CDT 01/29/2017 1:43 PM CDT Narrative [facility] - 01/29/2017 1:55 PM CDT ? The sensitivity of rapid tests for influenza A and B antigens, according to the published reports , ranges from 30-70% when compared to PCR and viral culture. For H1N1 influenza A, the sensitivity varies from 30-50%. For other influenza A strains, the sensitivity ranges from 50-70%. For influenza B virus, the sensitivity is approximately 30%. A negative result does not exclude influenza infection. ? False-positive (and true-negative) influenza test results are more likely to occur when disease prevalence is low, which is generally at the beginning and end of the influenza season. False-negative (and true-positive) influenza test results are more likely to occur when disease prevalence is high, which is typically at the height of the influenza season. Clinton Dorman DO LAB - MICROBIOLOGY O RDERABLES Performing Organization Address [facility] de Phone Number [facility] [address] [place] [id number] * EKG 12-LEAD (01/29/2017 12:20 PM CDT) Pathologist [facility] [place] Ventricular Rate 100 BPM [facility] Atrial Rate 100 BPM [facility] P-R Interval 84 ms [facility] MUSE QRS Duration ms 102 ms [facility]USE Q-T Interval ms 366 ms [facility] QTC Calculation (Bezet) 472 ms [facility] MUSE Calculated P [place] 26 degrees [facility] MUSE Calculated R [place] 48 degrees [facility] MUSE Calculated T [place] 33 degrees [facility] Interpretation EKG SINUS RHYTHM WITH SHORT SD NONSPECIFIC ST ABNORMALITY ABNORMAL ECG Confirmed by MD Lisandra, Toi ([id number]) on 01/30/2017 7:55:22 AM [facility] 01/29/2017 12:2 0 PM CDT 01/30/2017 7:55 AM CDT Clinton Dorman DO ECG ORDERABLES Performing Organization Address [facility] de Phone Number [facility] * LACTIC ACID BLOOD (01/29/2017 12:14 PM CDT) Pathologist [facility] [place] Lactic Acid 1.7 0.7 - 2.1 mmol/L 01/29/2017 12:44 PM CDT [facility] Blood BLOOD SPECIMEN / Unknown Venipuncture / Unknown 01/29/2017 12:14 PM CDT 01/29/2017 12:27 PM CDT Clintno Dorman DO LAB - CHEMISTRY [facility] [address] [place] [address] * (ABNORMAL) COMPREHENSIVE METABOLIC PANEL (01/29/2017 12:14 PM CDT) [facility] Glucose 97 74 - 106 mg/dL 01/29/2017 12:44 PM CDT [facility] Sodium 137 136 - 145 mmol/L 01/29/2017 12:44 PM CDT [facility] Potassium 3.6 3.5 - 5.1 mmol/L 01/29/2017 12:44 PM CDT [facility] Chloride 108(H) 98 - 107 mmol/L 01/29/2017 12:44 PM CDT [facility] CO2 18(L) 22 - 31 mmol/L 01/29/2017 12:44 PM CDT [facility] Calcium 8.7 8.5 - 10.1 mg/dL 01/29/2017 12:44 PM CDT [facility] Anion Gap 11 8 - 16 mmol/L 01/29/2017 12:44 PM CDT [facility] BUN 13 7 - 21 mg/dL 01/29/2017 12:44 PM CDT [facility] Creatinine 0.93 0.50 - 1.30 mg/dL 01/29/2017 12:44 PM CDT [facility] Alkaline Phosphatase 70 38 - 126 U/L 01/29/2017 12:44 PM CDT [facility] ALT 21 13 - 61 U/L 01/29/2017 12:44 PM CDT [facility] AST 17 5 - 40 U/L 01/29/2017 12:44 PM CDT [facility] Protein Total 7.6 6.4 - 8.2 gm/dL 01/29/2017 12:44 PM CDT [facility] Albumin 3.3(L) 3.4 - 5.0 gm/dL 01/29/2017 12:44 PM CDT [facility] Bilirubin Total 0.5 0.2 - 1.0 mg/dL 01/29/2017 12:44 PM CDT [facility] eGFR by MDRD >60 >60 mL/min/1.7 3m2 01/29/2017 12:44 PM CDT [facility] eGFR by MDRD >60 >60 mL/min/1.7 3m2 01/29/2017 12:44 PM CDT [facility] Blood BLOOD SPECIMEN / Unknown Venipuncture / Unknown 01/29/2017 12:14 PM CDT 01/29/2017 12:27 PM CDT Clinton Dorman DO LAB - CHEMISTRY [facility] [address] [place] [address] * (ABNORMAL) CBC W AUTO DIFFERENTIAL (01/29/2017 12:14 PM CDT) WBC 13.4(H) 4.4 - 10.7 x10E9/L 01/29/2017 12:29 PM CDT [facility] WBC Corrected x10E9/L 01/29/2017 12:29 PM CDT [facility] RBC 4.60 3.80 - 5.20 x10E12/L 01/29/2017 12:29 PM CDT [facility] Hemoglobin 13.2 12.0 - 15.6 gm/dL 01/29/2017 12:29 PM CDT [facility] Hematocrit 40.8 35.9 - 45.5 % 01/29/2017 12:29 PM CDT [facility] MCV 88.7 80.7 - 98.3 fl 01/29/2017 12:29 PM CDT [facility] MCH 28.7 26.7 - 34.0 pg 01/29/2017 12:29 PM CDT [facility] MCHC 32.4 30.8 - 35.9 gm/dL 01/29/2017 12:29 PM CDT [facility] Platelet Count 356 153 - 416 x10E9/L 01/29/2017 12:29 PM CDT [facility] RDW-CV 13.2 12.1 - 14.9 % 01/29/2017 12:29 PM CDT [facility] MPV 8.7(L) 9.4 - 12.9 fl 01/29/2017 12:29 PM CDT [facility] Neutrophils % 79.3(H) 44.0 - 73.0 % 01/29/2017 12:29 PM CDT [facility] Lymphocytes % 13.3(L) 20.0 - 43.0 % 01/29/2017 12:29 PM CDT [facility] Monocytes % 4.3(L) 5.0 - 13.0 % 01/29/2017 12:29 PM CDT [facility] Eosinophils % 0.9 0.0 - 6.0 % 01/29/2017 12:29 PM CDT [facility] Basophils % 0.8 0.0 - 2.0 % 01/29/2017 12:29 PM CDT [facility] Immature Granulocytes 1.4(H) 0 - 1 % 01/29/2017 12:29 PM CDT [facility] Neutrophil Absolute 10.65(H) 2.01 - 7.14 x10E9/L 01/29/2017 12:29 PM CDT [facility] Lymphocytes Absolute 1.79 1.07 - 3.94 x10E9/L 01/29/2017 12:29 PM CDT [facility] Monocytes Absolute 0.58 0.26 - 1.07 x10E9/L 01/29/2017 12:29 PM CDT [facility] Eosinophils Absolute 0.12 0 - 0.47 x10E9/L 01/29/2017 12:29 PM CDT [facility] Basophils Absolute 0.11(H) 0 - 0.08 x10E9/L 01/29/2017 12:29 PM CDT [facility] Immature Granulocytes Absolute 0.19(H) 0.00 - 0.06 x10E9/L 01/29/2017 12:29 PM CDT [facility] nRBC Auto 0 /100 WBC 01/29/2017 12:29 PM CDT [facility] Blood BLOOD SPECIMEN / Unknown Venipuncture / Unknown 01/29/2017 12:14 PM CDT 01/29/2017 12:27 PM CDT Clinton Dorman DO LAB - HEMATOLOGY ORD ERABLES [facility] [address] [place] [address] * XR CHEST PA AND LATERAL (01/29/2017 11:54 AM CDT) Anatomical Region Laterality Modality Chest Radiographic Smita ging 01/29/2017 11:5 7 AM CDT Impressions 01/29/2017 11:58 AM CDT Clear lungs. Narrative 01/29/2017 11:58 AM CDT Chest x-ray 2 views. HISTORY: Shortness of breath. 2 views the chest show normal heart size with normal vessels. Lungs are clear. Procedure Note Edwin Posada MD - 01/29/2017 Chest x-ray 2 views. HISTORY: Shortness of breath. 2 views the chest show normal heart size with normal vessels. Lungs are clear. IMPRESSION Clear lungs. Clinton Dorman DO DIAGNOSTIC IMAGING O RDERABLES documented in this encounter Visit Diagnoses Diagnosis SOB (shortness of breath)- Primary Shortness of breath Pneumonia of right lung due to infectious organism, unspecified part of lung Sepsis, due to unspecified organism (HCC) Rheumatoid arthritis of hip, unspecified laterality, unspecified rheumatoid factor presence (HCC) Sepsis (HCC) Pneumonia of right lung due to infectious organism documented in this encounter Administered Medications Inactive Administered Medications - up to 3 most recent administrations Medication Order MAR Action Action Date Dose Rate Site 0.45 % NaCl infusion at 50 mL/hr, Intravenous, CONTINUOUS, Starting on Sat01/30/17 at 0715, Until Sat02/02/17 at 1257 $ New Bag/Syringe 02/02/2017 6:59 AM CDT 50 mL/hr 50 mL/hr Rate Change 02/01/2017 12:47 PM CDT 50 mL/hr 50 mL/hr $ New Bag/Syringe 02/01/2017 3:09 AM CDT 75 mL/hr 75 mL/ hr 0.9% NaCl infusion at 100 mL/hr, Intravenous, CONTINUOUS, Starting on Sat01/29/17 at 1315, Until Sat01/30/17 at 0637 $ New Bag/Syringe 01/30/2017 6:19 AM CDT 100 mL/hr 0.9% NaCl infusion at 125 mL/hr, Intravenous, CONTINUOUS, Starting on Sat01/29/17 at 2000, Until Sat01/29/17 at 2136 $ New Bag/Syringe 01/29/2017 9:03 PM CDT 125 mL/hr 0.9% NaCl injection 1-10 mL 1-10 mL, Intracatheter, PRN, Other, peripheral line flush, Starting on Sat01/29/17 at 1116, Until 02/02/17 at 1257, Flush peripheral IV catheter with 1-10 mL of normal saline before and after medications and prn to clear blood from the line or to verify patency. 0.9% NaCl injection 3 mL 3 mL, Intracatheter, EVERY 8 HOURS, First dose on Sat01/29/17 at 1400, Until Discontinued, Flush peripheral IV catheter with 3 mL of normal saline every 8 hours. $ Given 02/01/2017 12:49 PM CDT 3 mL $ Given 01/31/2017 5:44 AM CDT 3 mL $ Given 01/30/2017 12:20 PM CDT 3 mL 0.9% NaCl IV Bolus 1,000 mL, Administer over 31 Minutes, ONCE, 1 dose, On Sat01/29/17 at 1315 $ New Bag/Syringe 01/29/2017 1:32 PM CDT 1,000 mL 0.9% NaCl IV Bolus 2,000 mL, Administer over 61 Minutes, NOW, 1 dose, On Sat01/29/17 at 1515 $ New Bag/Syringe 01/29/2017 3:57 PM CDT 2,000 mL acetaminophen (TYLENOL) tablet 650 mg 650 mg, Oral, ONCE, 1 dose, On Sat01/29/17 at 1315 $ Given 01/29/2017 1:32 PM CDT 650 mg albuterol (PROVENTIL;VENTOLIN) (2.5 MG/3ML) 0.083% nebulizer solution 2.5 mg 2.5 mg, Inhalation, EVERY 6 HOURS, First dose on Sat01/30/17 at 0000, Until Discontinued $ Given 01/30/2017 8:40 AM CDT 2.5 mg $ Given 01/30/2017 1:04 AM CDT 2.5 mg albuterol-ipratropium (DUO-NEB) nebulizer solution 3 mL 3 mL, Inhalation, ONCE, 1 dose, On Sat01/29/17 at 1245 $ Given 01/29/2017 12:28 PM CDT 3 mL albuterol-ipratropium (DUO-NEB) nebulizer solution 3 mL 3 mL, Inhalation, NOW, 1 dose, On Sat01/29/17 at 1300 $ Given 01/29/2017 2:01 PM CDT 3 mL cefTRIAXone (ROCEPHIN) 2,000 mg in 50 ml IVPB 2,000 mg (2 g), at 100 mL/hr, Intravenous, EVERY 24 HOURS, First dose on Sat01/30/17 at 1800, Until Discontinued $ New Bag/Syringe 02/02/2017 1:27 AM CDT 2,000 mg 100 mL/hr $ New Bag/Syringe 01/31/2017 4:54 PM CDT 2,000 mg 100 mL /hr $ New Bag/Syringe 01/30/2017 5:27 PM CDT 2,000 mg 100 mL /hr clonazePAM (KlonoPIN) tablet 0.5 mg 0.5 mg, Oral, 2 TIMES DAILY PRN, Anxiety, Starting on Sat01/29/17 at 2136, Until Sat01/30/17 at 1144 $ Given 01/30/2017 9:18 AM CDT 0.5 mg clonazePAM (KlonoPIN) tablet 0.5 mg 0.5 mg, Oral, 3 TIMES DAILY PRN, Anxiety, Starting on Sat01/30/17 at 1145, Until 02/02/17 at 1257 $ Given 01/31/2017 4:52 PM CDT 0.5 mg $ Given 01/31/2017 5:43 AM CDT 0.5 mg $ Given 01/30/2017 8:19 PM CDT 0.5 mg dextromethorphan-guaiFENesin ER 12hr (MUCINEX DM) 30-600 MG tablet 1 tablet 1 tablet, Oral, 2 TIMES DAILY, First dose on Sat01/30/17 at 1230, Until Discontinued, Do not crush, chew, or cut in half. $ Given 02/02/2017 8:20 AM CDT 1 tablet $ Given 02/01/2017 8:12 PM CDT 1 tablet $ Given 02/01/2017 8:46 AM CDT 1 tablet doxycycline hyclate (VIBRAMYCIN) 100 mg in 0.9% NaCl 110 mL IVPB 100 mg, at 110 mL/hr, Intravenous, EVERY 12 HOURS, First dose on Sat01/30/17 at 0900, Until Discontinued $ New Bag/Syringe 02/02/2017 8:22 AM CDT 100 mg 110 mL/hr $ New Bag/Syringe 02/01/2017 11:44 PM CDT 100 mg 110 m L/hr $ New Bag/Syringe 02/01/2017 8:56 AM CDT 100 mg 110 mL /hr DULoxetine (CYMBALTA) capsule 30 mg 30 mg, Oral, DAILY, First dose on Sat01/30/17 at 0900, Until Discontinued, Capsule may be opened and contents taken without crushing or chewing. $ Given 02/02/2017 8:21 AM CDT 30 mg $ Given 02/01/2017 8:46 AM CDT 30 mg $ Given 01/31/2017 8:55 AM CDT 30 mg DULoxetine (CYMBALTA) capsule 60 mg 60 mg, Oral, DAILY, First dose on Sat01/30/17 at 0900, Until Discontinued, Capsule may be opened and contents taken without crushing or chewing. $ Given 02/02/2017 8:20 AM CDT 60 mg $ Given 02/01/2017 8:46 AM CDT 60 mg $ Given 01/31/2017 8:55 AM CDT 60 mg enoxaparin (LOVENOX) injection 40 mg 40 mg, Subcutaneous, DAILY, First dose on Sat01/30/17 at 0900, Until Discontinued, (for prefilled syringes) do not expel air bubble from the syringe prior to the injection Remind Patient to not rub injection site. Could cause hematoma. $ Given 02/02/2017 8:19 AM CDT 40 mg Ab dominal Tissue $ Given 02/01/2017 8:44 AM CDT 40 mg Ab dominal Tissue $ Given 01/31/2017 8:56 AM CDT 40 mg Ab dominal Tissue guaiFENesin (ROBITUSSIN) solution 10 mL 10 mL, Oral, EVERY 6 HOURS PRN, Cough, Starting on Sat01/29/17 at 2134, Until Sat01/30/17 at 0757 $ Given 01/30/2017 7:34 AM CDT 5 mL $ Given 01/29/2017 10:22 PM CDT 10 mL guaiFENesin (ROBITUSSIN) solution 10 mL 10 mL, Oral, EVERY 6 HOURS PRN, Cough, Starting on Sat01/30/17 at 0756, Until 02/02/17 at 1257 $ Given 02/01/2017 3:09 AM CDT 10 mL $ Given 01/31/2017 1:02 PM CDT 10 mL $ Given 01/31/2017 3:44 AM CDT 10 mL HYDROcodone-acetaminophen (NORCO) 5-325 MG tablet 1 tablet 1 tablet, Oral, EVERY 4 HOURS PRN, Moderate Pain, Starting on Sat02/01/17 at 2154, Until 02/02/17 at 1257 $ Given 02/02/2017 8:31 AM CDT 1 tablet $ Given 02/01/2017 11:46 PM CDT 1 tablet iohexol (OMNIPAQUE 350) contrast Intravenous, CONTRAST ONCE, Starting on Sat01/29/17 at 1620, Until Leydi 01/31/17 at 1619 $ Given - Contrast 01/29/2017 5:15 PM CDT 100 mL ketorolac (TORADOL) injection 30 mg 30 mg, Intravenous, ONCE, 1 dose, On Sat01/29/17 at 1645 $ Given 01/29/2017 4:59 PM CDT 30 mg ketorolac (TORADOL) injection 30 mg 30 mg, Intravenous, EVERY 6 HOURS PRN, Mild Pain, Starting on Sat01/29/17 at 1953, Until Sat01/29/17 at 2136 $ Given 01/29/2017 9:04 PM CDT 30 mg levalbuterol (XOPENEX) nebulizer solution 1.25 mg 1.25 mg, Inhalation, EVERY 6 HOURS, First dose on Sat01/30/17 at 1215, Until Discontinued $ Given 01/30/2017 1:36 PM CDT 1.25 mg levalbuterol (XOPENEX) nebulizer solution 1.25 mg 1.25 mg, Inhalation, EVERY 6 HOURS, First dose (after last modification) on Sat01/30/17 at 2000, Until Discontinued $ Given 01/30/2017 7:54 PM CDT 1.25 mg levalbuterol (XOPENEX) nebulizer solution 1.25 mg 1.25 mg, Inhalation, EVERY 6 HOURS PRN, Shortness of Breath, Starting on Sat01/30/17 at 2015, Until 02/02/17 at 1257 $ Given 01/31/2017 4:16 PM CDT 1.25 mg $ Given 01/31/2017 5:05 AM CDT 1.25 mg levoFLOXacin (LEVAQUIN) 750 mg in 150 mL IVPB 750 mg, at 100 mL/hr, Intravenous, EVERY 24 HOURS, First dose on Sat01/29/17 at 1745, Until Discontinued $ New Bag/Syringe 01/29/2017 7:00 PM CDT 750 mg 100 mL/hr linaCLOtide (LINZESS) capsule 145 mcg 145 mcg, Oral, DAILY BEFORE BREAKFAST, First dose on Sat01/30/17 at 0800, Until Discontinued, Attn Nurse: This is a NON-PYXIS medication & is NOT loaded in the pyxis machine., Take on an empty stomach at least 30 minutes prior to first meal of the day. $ Given 02/02/2017 8:20 AM CDT 145 mcg $ Given 01/31/2017 8:55 AM CDT 145 mcg $ Given 01/30/2017 8:11 AM CDT 145 mcg LORazepam (ATIVAN) injection 2 mg 2 mg, Intravenous, ONCE, 1 dose, On Sat01/29/17 at 1445 $ Given 01/29/2017 2:40 PM CDT 2 mg methylPREDNISolone sod succ (SOLU-Medrol) injection 60 mg 60 mg, Intravenous, NOW, 1 dose, On Sat01/29/17 at 1300 $ Given 01/29/2017 1:32 PM CDT 60 mg morphine injection 1 mg 1 mg, Intravenous, EVERY 4 HOURS PRN, Severe Pain, Starting on Sat02/01/17 at 1331, Until 02/02/17 at 1257 $ Given 02/02/2017 11:29 AM CDT 1 mg $ Given 02/01/2017 8:12 PM CDT 1 mg morphine injection 2 mg 2 mg, Intravenous, EVERY 4 HOURS PRN, Severe Pain, Starting on Sat01/29/17 at 2134, Until Sat02/01/17 at 1331 $ Given 02/01/2017 12:47 PM CDT 2 mg $ Given 02/01/2017 8:47 AM CDT 2 mg $ Given 02/01/2017 3:04 AM CDT 2 mg ondansetron (ZOFRAN) injection 4 mg 4 mg, Intravenous, EVERY 4 HOURS PRN, Nausea/Vomiting, Starting on Sat01/29/17 at 1953, Until 02/02/17 at 1257 $ Given 01/31/2017 6:43 PM CDT 4 mg $ Given 01/31/2017 1:01 PM CDT 4 mg $ Given 01/31/2017 8:50 AM CDT 4 mg pantoprazole EC (PROTONIX) tablet 40 mg 40 mg, Oral, 2 TIMES DAILY (before breakfast and supper), First dose on Sat01/30/17 at 0800, Until Discontinued, Do not crush, chew, or cut in half. $ Given 02/02/2017 6:52 AM CDT 40 mg $ Given 02/01/2017 8:25 PM CDT 40 mg $ Given 02/01/2017 8:46 AM CDT 40 mg sucralfate (CARAFATE) suspension 1 g 1 g, Oral, 4 TIMES DAILY - BEFORE MEALS AND AT BEDTIME, First dose on Sat02/01/17 at 1600, Until Discontinued, Shake well before using. $ Given 02/02/2017 11:28 AM CDT 1 g $ Given 02/02/2017 8:19 AM CDT 1 g $ Given 02/01/2017 8:13 PM CDT 1 g topiramate (TOPAMAX) tablet 200 mg 200 mg, Oral, AT BEDTIME, First dose on Sat01/29/17 at 2215, Until Discontinued, Swallow tablets whole if taking orally to avoid a bitter taste. $ Given 02/01/2017 8:12 PM CDT 200 mg $ Given 01/31/2017 8:41 PM CDT 200 mg $ Given 01/30/2017 8:19 PM CDT 200 mg traZODone (DESYREL) tablet 100 mg 100 mg, Oral, AT BEDTIME, First dose on Sat01/29/17 at 2215, Until Discontinued $ Given 02/01/2017 8:12 PM CDT 100 mg $ Given 01/31/2017 8:41 PM CDT 100 mg $ Given 01/30/2017 8:19 PM CDT 100 mg documented in this encounter Active and Recently Administered Medications Times are shown in CDT. Scheduled Medication Order 01/31/2017 02/01/2017 02/02/2017 0.9% NaCl injection 3 mL(Linked Group 1) 3 mL, Intracatheter, EVERY 8 HOURS, First dose on Sat01/29/17 at 1400, Until Discontinued, Flush peripheral IV catheter with 3 mL of normal saline every 8 hours. 0544 ($ Given - Provider: Eri Benson RN)1252 (Not Administered - Provider: Nancy Michaels RN - Reason: IV Currently Infusing)2108 (Not Administered - Provider: Shani Hawley RN - Reason: IV Currently Infusing) 0619 (Not Administered - Provider: Shani Hawley RN - Reason: IV Currently Infusing)1249 ($ Given - Provider: Akira Jimenez RN)2344 (Not Administered - Provider: Shani Hawley RN - Reason: IV Currently Infusing) 0536 (Not Administered - Provider: Shani Hawley RN - Reason: IV Currently Infusing) cefTRIAXone (ROCEPHIN) 2,000 mg in 50 ml IVPB 2,000 mg (2 g), at 100 mL/hr, Intravenous, EVERY 24 HOURS, First dose on Sat01/30/17 at 1800, Until Discontinued 1654 ($ New Bag/Syringe - Provider: Nancy Michaels RN)1730 (Stopped - Provider: Nancy Michaels RN) 0127 ($ New Bag/Syringe - Provider: Shani Hawley RN)0155 (Stopped - Provider: Shani Hawley RN) dextromethorphan-guaiF ENesin ER 12hr (MUCINEX DM) 30-600 MG tablet 1 tablet 1 tablet, Oral, 2 TIMES DAILY, First dose on Sat01/30/17 at 1230, Until Discontinued, Do not crush, chew, or cut in half. 0855 ($ Given - Provider: Nancy Michaels RN)2040 ($ Given - Provider: Shani Hawley RN) 0846 ($ Given - Provider: Akira Jimenez, ANTHONY)2011 ($ Given - Provider: Shani Hawley RN) 0820 ($ Given - Provider: Ludivina Mayo RN) doxycycline hyclate (VIBRAMYCIN) 100 mg in 0.9% NaCl 110 mL IVPB 100 mg, at 110 mL/hr, Intravenous, EVERY 12 HOURS, First dose on Sat01/30/17 at 0900, Until Discontinued 0849 ($ New Bag/Syringe - Provider: Nancy Michaels RN)1000 (Stopped - Provider: Nancy Michaels RN)204 ($ New Bag/Syringe - Provider: Shani Hawley RN)2231 (Stopped - Provider: Shani Hawley RN) 0856 ($ New Bag/Syringe - Provider: Akira Jimenez RN)0956 (Stopped - Provider: Akira Jimenez RN)2344 ($ New Bag/Syringe - Provider: Shani Hawley, RN) 0118 (Stopped - Provider: Shani Hawley, RN)0822 ($ New Bag/Syringe - Provider: Ludivina Mayo RN)0922 (Stopped - Provider: Ludivina Mayo RN) DULoxetine (CYMBALTA) capsule 30 mg 30 mg, Oral, DAILY, First dose on Sat01/30/17 at 0900, Until Discontinued, Capsule may be opened and contents taken without crushing or chewing. 0855 ($ Given - Provider: Nancy Michaels RN) 0846 ($ Given - Provider: Akira Jimenez RN) 0821 ($ Given - Provider: Ludivina Mayo, ANTHONY) DULoxetine (CYMBALTA) capsule 60 mg 60 mg, Oral, DAILY, First dose on Sat01/30/17 at 0900, Until Discontinued, Capsule may be opened and contents taken without crushing or chewing. 0855 ($ Given - Provider: Nancy Michaels RN) 0846 ($ Given - Provider: Akira Jimenez RN) 0820 ($ Given - Provider: Ludivina Mayo RN) enoxaparin (LOVENOX) injection 40 mg 40 mg, Subcutaneous, DAILY, First dose on Sat01/30/17 at 0900, Until Discontinued, (for prefilled syringes) do not expel air bubble from the syringe prior to the injection Remind Patient to not rub injection site. Could cause hematoma. 0856 ($ Given - Provider: Nancy Michaels RN) 0844 ($ Given - Provider: Akira Jimenez RN) 0819 ($ Given - Provider: Ludivina Mayo RN) linaCLOtide (LINZESS) capsule 145 mcg 145 mcg, Oral, DAILY BEFORE BREAKFAST, First dose on Sat01/30/17 at 0800, Until Discontinued, Attn Nurse: This is a NON-PYXIS medication & is NOT loaded in the pyxis machine., Take on an empty stomach at least 30 minutes prior to first meal of the day. 0855 ($ Given - Provider: Nancy Michaels RN) 0846 (Not Administered - Provider: Akira Jimenez RN - Reason: Refused-Patient) 0820 ($ Given - Provider: Ludivina Mayo RN) pantoprazole EC (PROTONIX) tablet 40 mg 40 mg, Oral, 2 TIMES DAILY (before breakfast and supper), First dose on Sat01/30/17 at 0800, Until Discontinued, Do not crush, chew, or cut in half. 0647 ($ Given - Provider: Eri Benson RN)2040 ($ Given - Provider: Shani Hawley RN) 0846 ($ Given - Provider: Akira Jimenez RN)2024 ($ Given - Provider: Shani Hawley RN) 0652 ($ Given - Provider: Shani Hawley RN) sucralfate (CARAFATE) suspension 1 g 1 g, Oral, 4 TIMES DAILY - BEFORE MEALS AND AT BEDTIME, First dose on Sat02/01/17 at 1600, Until Discontinued, Shake well before using. 1647 ($ Given - Provider: Akira Jimenez RN)2012 ($ Given - Provider: Shani Hawley, ANTHONY) 0819 ($ Given - Provider: Ludivina Mayo RN)1128 ($ Given - Provider: Ludivina Mayo RN) topiramate (TOPAMAX) tablet 200 mg 200 mg, Oral, AT BEDTIME, First dose on Sat01/29/17 at 2215, Until Discontinued, Swallow tablets whole if taking orally to avoid a bitter taste. 2040 ($ Given - Provider: Shani Hawley RN) 2011 ($ Given - Provider: Shani Hawley, ANTHONY) traZODone (DESYREL) tablet 100 mg 100 mg, Oral, AT BEDTIME, First dose on Sat01/29/17 at 2215, Until Discontinued 2040 ($ Given - Provider: Shani Hawley RN) 2011 ($ Given - Provider: Shani Hawley RN) Continuous Medication Order 01/31/2017 02/01/2017 02/02/2017 0.45 % NaCl infusion at 50 mL/hr, Intravenous, CONTINUOUS, Starting on Sat01/30/17 at 0715, Until 02/02/17 at 1257 0850 ($ New Bag/Syringe - Provider: Nancy Michaels, ANTHONY) 0309 ($ New Bag/Syringe - Provider: Shani Hawley, RN)1247 (Rate Change - Provider: Akira Jimenez RN) 0659 ($ New Bag/Syringe - Provider: Shani Hawley, RN) PRN Medication Order 01/31/2017 02/01/2017 02/02/2017 0.9% NaCl injection 1-10 mL(Linked Group 1) 1-10 mL, Intracatheter, PRN, Other, peripheral line flush, Starting on Sat01/29/17 at 1116, Until 02/02/17 at 1257, Flush peripheral IV catheter with 1-10 mL of normal saline before and after medications and prn to clear blood from the line or to verify patency. clonazePAM (KlonoPIN) tablet 0.5 mg 0.5 mg, Oral, 3 TIMES DAILY PRN, Anxiety, Starting on Sat01/30/17 at 1145, Until 02/02/17 at 1257 0543 ($ Given - Provider: Eri Benson RN)1652 ($ Given - Provider: Nancy Michaels, ANTHONY) guaiFENesin (ROBITUSSIN) solution 10 mL 10 mL, Oral, EVERY 6 HOURS PRN, Cough, Starting on Sat01/30/17 at 0756, Until 02/02/17 at 1257 0344 ($ Given - Provider: Eri Benson RN)1302 ($ Given - Provider: Nancy Michaels RN) 0309 ($ Given - Provider: Shani Hawley, ANTHONY) HYDROcodone-acetaminop hen (NORCO) 5-325 MG tablet 1 tablet 1 tablet, Oral, EVERY 4 HOURS PRN, Moderate Pain, Starting on Sat02/01/17 at 2154, Until 02/02/17 at 1257 2346 ($ Given - Provider: Shani Hawley, ANTHONY) 0831 ($ Given - Provider: Ludivina Mayo RN) levalbuterol (XOPENEX) nebulizer solution 1.25 mg 1.25 mg, Inhalation, EVERY 6 HOURS PRN, Shortness of Breath, Starting on Sat01/30/17 at 2015, Until 02/02/17 at 1257 0505 ($ Given - Provider: Jennifer Price RCP)1616 ($ Given - Provider: Cherie Agarwal RCP) morphine injection 1 mg 1 mg, Intravenous, EVERY 4 HOURS PRN, Severe Pain, Starting on Sat02/01/17 at 1331, Until 02/02/17 at 1257 2012 ($ Given - Provider: Shani Hawley RN) 1129 ($ Given - Provider: Ludivina Mayo RN) morphine injection 2 mg (CANCELED) 2 mg, Intravenous, EVERY 4 HOURS PRN, Severe Pain, Starting on Sat01/29/17 at 2134, Until Sat02/01/17 at 1331 0319 ($ Given - Provider: Eri Benson RN)0850 ($ Given - Provider: Nancy Michaels RN)1301 ($ Given - Provider: Nancy Michaels RN)1843 ($ Given - Provider: Nancy Michaels RN)2240 ($ Given - Provider: Shani Hawley RN) 0304 ($ Given - Provider: Shani Hawley RN)0847 ($ Given - Provider: Akira Jimenez, ANTHONY)1247 ($ Given - Provider: Akira Jimenez RN) ondansetron (ZOFRAN) injection 4 mg 4 mg, Intravenous, EVERY 4 HOURS PRN, Nausea/Vomiting, Starting on Sat01/29/17 at 1953, Until 02/02/17 at 1257 0850 ($ Given - Provider: Nancy Michaels RN)1301 ($ Given - Provider: Nancy Michaels RN)1843 ($ Given - Provider: Nancy Michaels RN) Linked Groups Order Group 1: SALINE LOCK, INSERT AND MAINTAIN (CANCELED) Routine, CONTINUOUS, Starting on Sat01/29/17 at 1130, Until Specified, New collection And 0.9% NaCl injection 3 mLJump to med 3 mL, Intracatheter, EVERY 8 HOURS, First dose on Sat01/29/17 at 1400, Until Discontinued, Flush peripheral IV catheter with 3 mL of normal saline every 8 hours. And 0.9% NaCl injection 1-10 mLJump to med 1-10 mL, Intracatheter, PRN, Other, peripheral line flush, Starting on 01/29/17 at 1116, Until 02/02/17 at 1257, Flush peripheral IV catheter with 1-10 mL of normal saline before and after medications and prn to clear blood from the line or to verify patency. documented in this encounter Care Teams Patternmaker Helper Relationship Specialty Start Date End Date Feliciano Dash MD [address] [facility] [address] [place] [id number] PCP - General Internal Medicine 12/15/15 06/11/21 Jonathan Hartman, RN Oil Truck Driver 07/14/15 documented as of this encounter
--- OUTSIDE RECORDS SUMMARY | 2024-04-29 19:19 | XMS_ITS | Encounter Summary ---
Author Organization [facility] Address [address] [place] [address] Care Team Providers Care Workers' Compensation Hearings Officer Name Role Phone Minnie Jonathan Delaney RN Unavailable [phone] Feliciano Dash MD Primary Care Provider [phone] Encounter Details Date Type Department Care Team (Late st Contact Info) Description 03/13/2016 Orders Only [facility] - [address] [address] Armando Corona MD [address] [place] [id number] Social History Tobacco Use Types Packs/Day Years [...] this encounter Patient Instructions * Patient Instructions* Rosalba Byrd - 03/13/2016 12:41 PM FRAME NAILER PREPARATION FOR UPPER ENDOSCOPY Please arrive at 7AM for your procedure which is scheduled at 8:30AM, on 04/06/16. Please report to: [facility]Endoscopy Department Ground floor, East Entrance [address] [place] [address] NO FOOD OR DRINK AFTER MIDNIGHT BEFORE YOUR EXAM. MEDICATION INSTRUCTIONS: DISCUSS WELL IN ADVANCE OF YOUR PROCEDURE: If you are taking Persantine, Heparin, Coumadin (Warfarin) or Plavix as prescribed by your physician, please phone us at [phone] well in advance of your procedure. 3 DAYS BEFORE your procedure, stop taking any blood thinners, for example- Aspirin, Motrin, Advil, Aleve, Ibuprofen, Aggrenox, Excedrin or Naprosyn, Persantine, etc. 1 WEEK BEFORE your procedure, please stop any prescription iron medication. DO NOT EAT OR DRINK ANYTHING AFTER MIDNIGHT THE NIGHT BEFORE YOUR PROCEDURE: Except for important medications such as blood pressure, heart or seizure medications, which may betaken the morning of your procedure with a sip of water. ON THE DAY OF your procedure: BRING A LIST OF YOUR CURRENT MEDICATIONS BRING SOMEONE TO DRIVE YOU HOME. (The medication you will receive will prevent you from driving or working safely the day of your exam). There is a comfortable waiting area with complimentary beverages available for your catering driver during their wait period. The physician will discuss the findings with you and your family members following your procedure. Thank you for allowing us to participate in your care. Questions?? If so, please call us at If you have any questions regarding this procedure or preparation for it, please call our office at [phone] or [phone]. E NAILER documented in this encounter Progress Notes * Roslaba Byrd - 03/13/2016 12:41 PM CST PATIENT WAS SCHEDULE IN THE OFFICE AND INSTRUCTIONS MAILED TO PT E NAILER documented in this encounter Plan of Treatment Not on file documented as of this encounter Goals Goal Patient Goal Type Associated Problems Recent Progress Patient-Stated? Author Yearly PCP visit Lifestyle No Rukhsana Lazo, FRED documented as of this encounter Visit Diagnoses Not on filedocumented in this encounter Care Teams Workers' Compensation Hearings Officer Relationship Specialty Start Date End Date Feliciano Dash MD [address] [facility] [address] [facility] [address] [facility] [address] [place] [id number] PCP - General Internal Medicine 12/15/15 06/11/21 Jonathan Hartman, RN Manager Immunology 07/14/15 documented as of this encounter
--- OUTSIDE RECORDS SUMMARY | 2024-04-29 19:19 | XMS_ITS | Clinical Summary ---
Author Organization [facility] Address [address] [place] [address] Care Team Providers Care Litharge Supervisor Name Role Phone Jonathan Hartman RN Unavailable [phone] Feliciano Dash MD Primary Care Provider [phone] Source Comments [facility],non-owned Affiliates and Associated Physician Practices is amultiple site organization consisting of ambulatory clinics and hospital sitesin [place], [place], [place] and [place]. This disclosure is being madepursuant to the Care Everywhere program and may not contain all information available regarding this patient. Last updated 18.[facility] Allergies Active Allergy Reactions Criticality Noted Date [...] transdermal route every 24 hours. Obtains from [facility] in [place]. 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 Obtains from [facility] in [place]. 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 [...] AFLURIA QUADRIVALENT; 6MO+), 0.5 ML (IIV4) 01/30/2017 Family History Medical History Relation Name Comments Crohn's Disease Brother Arthritis - Osteo Father Relation Name Status Comments Brother Father Social History Tobacco Use Types Packs/Day Years [...] Mass Index 28.49 01/29/2017 7:54 PM CDT Plan of Treatment Health Maintenance Due Date Last Done Comments COLOGUARD (AGES 45-75) - COLON CA SCREENING 1974 CT COLONOGRAPHY - COLON CA SCREENING 1974 FIT - COLON CA SCREENING 1974 FLEX SIG - COLON CA SCREENING 1974 MAMMOGRAM 1974 PAP SMEAR 1974 COVID-19 VACCINE (#1) 1979 PNEUMOCOCCAL VACCINE (1 of 2 - PCV) 1980 HIV SCREENING 1989 HEPATITIS C SCREENING 05/16/1992 DTAP/TDAP/TD VACCINES (1 - Tdap) 1993 HEPATITIS B VACCINE (1 of 3 - 19+ 3-dose series) 1993 ZOSTER VACCINE (1 of 2) 1993 LIPID TESTING 08/01/2020 08/02/2015 DEPRESSION SCREENING 04/22/2023 INFLUENZA VACCINE (#1) 2023 01/30/2017 COLON MONITORING 12/14/2025 12/15/2015, , 12/15/2015, Additional history exists COLONOSCOPY - COLON CA SCREENING 12/14/2025 12/15/2015, 12/15/2015, 12/15/2015, Additional history exists Colorectal Cancer Screening 12/14/2025 HIB VACCINE Aged Out No longer eligi ble based on patient's age to complete this topic HPV VACCINE Aged Out No longer eligi ble based on patient's age to complete this topic MENINGOCOCCAL VACCINE Aged Out No ector dulce eligible based on patient's age to complete this topic Goals Goal Patient Goal Type Associated Problems Recent Progress Patient-Stated? Author Yearly PCP visit Lifestyle No Rukhsana Lazo MA Procedures Procedure Name Priority Date/Time Associated [...] 184 <200 mg/dL 08/02/2015 10:49 AM CDT [facility] Triglycerides 156(H) <150 mg/dL 08/02/2015 10:49 AM CDT [facility] HDL Cholesterol 43 >40 mg/dL 08/02/2015 10:49 AM CDT [facility] LDL Calculated 110 <130 mg/dL 08/02/2015 10:49 AM CDT [facility] VLDL Calculated 31(H) <=30 mg/dL 08/02/2015 10:49 AM CDT [facility] Chol HDL Ratio 4.3 <4.5 08/02/2015 10:49 AM CDT [facility] LDL/HDL Ratio 2.6 <5.0 08/02/2015 10:49 AM CDT [facility] Blood BLOOD SPECIMEN / Unknown Lab Venipuncture / Unknown 08/02/2015 10:02 AM CDT 08/02/2015 10:13 AM CDT Chucho Hinton MD LAB - CHEMISTRY [facility] Organization Address City/State/[facility] Co de Phone Number [facility] [address] [place] [address] from Last 3 Months or Most Recently Relevant to Health Maintenance Advance Directives * Full Code (Latest Code Status on File) Date Activated Date Inactivated Comments 01/29/2017 7:53 PM 02/02/2017 1:02 PM * Full Code Date Activated Date Inactivated Comments 08/02/2015 1:57 AM 08/05/2015 3:00 PM * Full Code Date Activated Date Inactivated Comments 07/13/2015 10:36 PM 07/16/2015 3:55 PM Care Teams Litharge Supervisor Relationship Specialty Start Date End Date Feliciano Dash MD [address] [place] [address] PCP - General 07/14/21 Jonathan Hartman RN Traffic Workforce Representative 07/14/15
--- OUTSIDE RECORDS SUMMARY | 2024-04-29 19:19 | XMS_ITS | Encounter Summary ---
Author Organization [facility] Address [address] [place] [address] Care Team Providers Care Artist Representative Name Role Phone Jonathan Hartman RN Unavailable [phone] Reason for Visit * Reason Comments Establish Care Encounter Details Date Type Department Care Team (Late st Contact Info) Description 11/18/2015 2:20 PM CDT Office Visit [facility] Medical [facility] - Internal Medicine [address] [place] [address] [phone] Daljit Munoz MD [address] [place] [address] [phone] Routine general medical examination at a health care facility (Primary Dx); Chronic bilateral low back pain, with sciatica presence unspecified; Lumbar disc herniation; Meredith-Danlos, hypermobile type (HCC); Rheumatoid arthritis involving multiple sites, unspecified rheumatoid factor presence; Migraine without aura and without status migrainosus, not intractable; Chronic constipation; FERNANDA (generalized anxiety disorder) Social History Tobacco Use Types Packs/Day Years Used Date Smoking Tobacco: Light Smoker Smokeless Tobacco: Current Tobacco Cessation:Ready to Q uit: Yes; Counseling Given: Yes Comments:e-cigarette Alcohol Use Standard Drinks/Week Comments Yes 0 (1 standard drink = 0.6 oz pur e alcohol) rare Sex and Gender Information Value Date Recorded Sex Assigned at Not on file Gender Identity Female 01/29/2017 1:09 PM CDT Sexual Orientation Not on file documented as of this encounter Last Filed Vital Signs Vital Sign Reading Time Taken Comments Blood Pressure 124/82 11/18/2015 2:21 PM CDT Pulse 108 11/18/2015 2:21 PM CDT Temperature - - Respiratory Rate 14 11/18/2015 2:21 PM CDT Oxygen Saturation - - Inhaled Oxygen Concentration - - Weight 76.2 kg (168 lb) 11/18/2015 2:21 PM CDT Height 167.6 cm (5' 5.98 ) 11/18/2015 2:21 PM CD T Body Mass Index 27.13 11/18/2015 2:21 PM CDT documented in this encounter Functional Status Functional Status Response Date of Assess ment Is person deaf or have serious hearing difficult y? No 08/04/2015 Is person blind or have serious difficulty seein g? No 08/04/2015 Does person have serious dif ficulty walking/climbing stairs? No 08/04/2015 Does person have difficulty dressing/bathing? No 08/04/2015 Does person have difficulty doing errands alone? No 08/04/2015 Cognitive Status Response Date of Assessm ent Does person have difficulty concentrating/remembering/making decisions? No 08/04/2015 documented as of this encounter Patient Instructions * Patient Instructions* Rukhsana Lazo MA - 11/18/2015 1:50 PM CDT Make sure to exercise at least 3 days a week for 30 minutes or more at a time. It's great for stress as well as maintaining a healthy lifestyle! Remember a body in motion, stays in motion. documented in this encounter Progress Notes * Kim Flores - 11/24/2015 2:27 PM CDT Added diagnosis Z00.00 for physical/preventative/AWV * Daljit Munoz MD - 11/18/2015 3:02 PM CDT 11/18/2015 Madalyn Walton 1975 Chief Complaint Patient presents with ??? Establish Care HPI: 40 yo female smoker presents for assessment of the following 1) Chronic low back pain - moderate-severe back pain brought about by certain postures, may radiatedown one or both legs - no loss of bladder or bowel control - took oxycodone and hydrocodone 2) Arthritis - involves hands, hips and knees; joint stiffness worsened by temperature changes, rainy days; has tried OTC analgesics with limited success - takes Plaquenivish; Dr. Heath managing - goes to PT ordered by Dr. 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 Arias 4) Chronic constipation - significant periods of difficulty passing stools; denied black or bloody stools; admits not eating significant amounts of fiber rich foods; may not drink a lot of water - Dr. Corona managing 5) Migraine headaches - no current throbbing, pounding, or pulsating headache. Past headaches may start as a dull ache and get worse within minutes to hours - may experience N&V, fatigue, sensitivity to light or sound, loss of appetite - takes sumatriptan injections, Fioricet, and Zofran 6) Anxiety - Excessive, ongoing worry and tension, nervous; feels restless or edgy ; takes Xanax and Cymbalta - has PCP in [place] but would like to transfer her care to a doctor in [place] Review of Systems - General ROS: negative for - chills or fever Psychological ROS: positive for - anxiety +/- depression Ophthalmic ROS: negative for - loss of vision or photophobia ENT ROS: negative for - headaches or nasal congestion Endocrine ROS: negative for - palpitations or polydipsia/polyuria Respiratory ROS: no cough, shortness of breath, or wheezing Cardiovascular ROS: no chest pain or dyspnea on exertion Gastrointestinal ROS: positive for - abdominal pain, change in bowel habits negative for - black or bloody stools Genito-Urinary ROS: no dysuria, trouble voiding, or hematuria Musculoskeletal ROS: positive for - gait disturbance, joint disorder negative for - or muscular weakness Neurological ROS: negative for - impaired coordination/balance or speech problems Dermatological ROS: negative for - pruritus or rash Depression: PHQ-2: PHQ-9: Future Falls: Current Outpatient Prescriptions on File Prior to Visit Medication Sig Dispense Refill ??? pantoprazole EC [...] Take 60 mg by mouth once daily ? ? sucralfate (CARAFATE) 1 GM/10ML suspension Take 10 mL by mouth 4 times daily - before meals & nightly (Patient not taking: Reported on 11/18/2015) 420 mL 1 No current facility-administered medications on file prior to visit. Allergies Allergen Reactions ??? Ibuprofen Other Stomach ulcers Past Medical History Diagnosis Date ??? Diverticulitis ??? Migraine ??? Kidney stones ??? Anxiety ??? Gastritis ??? Ulcer Past Surgical History Procedure Laterality [...] GASTROINTESTINAL TRACT IMAGING INTRALUMINAL ESOPHAGUS THROUGH ILEUM Family History Problem Relation Age of Onset ??? Osteoarthritis Father History Social History ??? Marital Status: Spouse Name: N/A Number of Children: N/A ??? Years of Education: N/A Occupational History ??? Not on file. Social History Main Topics ??? Smoking status: Light Tobacco Smoker ??? Smokeless tobacco: Current User Comment: e-cigarette ??? Alcohol Use: 0.0 oz/week 0 Not specified per week Comment: rare ??? Drug Use: No ??? Sexual Activity: Partners: Male Other Topics Concern ??? Not on file Social History Narrative There is no immunization history on file for this patient. PHYSICAL EXAMINATION: BP 124/82 mmHg Pulse 108 Resp 14 Wt 76.204 kg (168 lb) BMI 27.13 kg/m2 GENERAL: NAD, well-developed, well-nourished SKIN: Inspect and palpate skin; no unusual lesions are noted EYES: PERRL, EOMI, no jaundice ENMT: TMs are unremarkable, nose nonboggy, oropharynx was clear, no exudates or lesions are noted NECK: Supple, no adenopathy, no carotid bruits, no thyromegaly or masses RESP: Breath sounds equal, symmetric expansion, no expiratory wheezing, clear to auscultation and percussion CV: RRR, no gallops/rubs, PMI is normal, no heart palpations, no edema ABD: Palpation of the abdomen was soft, non-tender, spleen is nonpalpable, hernias absent NEURO: sensation is intact to light touch, cranial nerves are intact MUSCULOSKELETAL: lumbar vertebral column tenderness, limited ROM in all four extremities 2/2 joint pain and stiffness PSY: affect is congruent with mood, AOA x3 IMPRESSION/PLAN: 1. Chronic bilateral low back pain, with sciatica presence unspecified 2. Lumbar disc herniation After discussion with the patient, I explained to her that I am not a chronic pain specialist and that she should find another doctor who can provide the care that she needs. I gave her a list of doctors who may be better suited to take care of her needs 3. Meredith-Danlos, hypermobile type Will see unknown doctor in [place] 4. Rheumatoid arthritis involving multiple sites, unspecified rheumatoid factor presence Managed by Dr. Heath - hydroxychloroquine (PLAQUENIL) 200 MG tablet; 1 Tab once daily 5. Migraine without aura and without status migrainosus, not intractable Stable, managed by PCP in [place] - ondansetron, disintegrating, (ZOFRAN ODT) 4 MG tablet; 1 Tab 2 times daily as needed - SUMAtriptan Succinate 6 MG/0.5ML; 1 injection at onset of migraine, may repeat 1 hour later if needed. Max 2 injections per 24 hours; Refill: 0 - uzxurtjqho-mhaktgyexwqnj-mbabolpy (FIORICET) 50-325-40 MG tablet; 1 Tab every 4 hours as needed for Headache Dispense: 90 Tab; Refill: 1 6. Chronic constipation Managed by Dr Corona 7. FERNANDA (generalized anxiety disorder) Stable, managed by PCP in [place] Health Maintenance Topic Date Due ??? DTAP/TDAP/TD VACCINES (1 - Tdap) 1993 ??? PAP SMEAR Q3 YR 1995 ??? MAMMOGRAM Q2 YR 2014 ??? INFLUENZA VACCINE 12/22/2015 ??? DYSLIPIDEMIA SCREENING Q5 YR 08/01/2020 * Rukhsana Lazo MA - 11/18/2015 1:50 PM CDT Madalyn Walton is here to establish care. Pt had bilateral knee surgery done in high school. Pt's RA having pt doing PT, may need surgery again in future and may need to be tested for Meredith Danlos. Ptis now having hip problems due to knee issues, pt sees Dr Arias. BP 124/82 mmHg Pulse 108 Resp 14 Wt 76.204 kg (168 lb) BMI 27.13 kg/m2 documented in this encounter Plan of Treatment Not on file documented as of this encounter Goals Goal Patient Goal Type Associated Problems Recent Progress Patient-Stated? Author Yearly PCP visit Lifestyle No Rukhsana Lazo MA documented as of this encounter Visit Diagnoses Diagnosis Routine general medical examination at a health care facility- Primary Chronic bilateral low back pain, with sciatica presence unspecified Lumbar disc herniation Displacement of lumbar intervertebral disc without myelopathy Meredith-Danlos, hypermobile type (HCC) Rheumatoid arthritis involving multiple sites, unspecified rheumatoid factor presence (HCC) Migraine without aura and without status migrainosus, not intractable Migraine without aura, without mention of intractable migraine without mention of status migrainosus Chronic constipation Unspecified constipation FERNANDA (generalized anxiety disorder) Generalized anxiety disorder documented in this encounter Care Teams Artist Representative Relationship Specialty Start Date End Date Jonathan Hartman RN Medical Microbiologist 07/14/15 documented as of this encounter
--- OUTSIDE RECORDS SUMMARY | 2024-04-29 19:19 | XMS_ITS | Encounter Summary ---
Author Organization [facility] Address [address] [place] [address] Care Team Providers Care Reservations Sales Supervisor Name Role Phone Minnie Jonathan Delaney RN Unavailable Feliciano Dash MD Primary Care Provider [phone] Reason for Visit * Reason Comments Refill Request Encounter Details Date Type Department Care Team (Late st Contact Info) Description 10/13/2017 Refill [facility] - [address] [address] Armando Corona MD [address] [place] [phone] Refill Request Social History Tobacco Use [...] Telephone Encounter - Sanjeev Zeng MA - 10/14/2017 8:21 AM CDT Refill request zantac and carafate.sent to MD to approve with message to pharmacist pt must be seenfor future refills. CB * Telephone Encounter - Curtis Garland I - 10/14/2017 8:19 AM CDT Refill requests for Zantc, Carafate. Pt last seen 06/2016. Will sent to authorize, need to schedule appt for further refills. WM documented in this encounter Plan of Treatment Not on file documented as of this encounter Goals Goal Patient Goal Type Associated Problems Recent Progress Patient-Stated? Author Yearly PCP visit Lifestyle No Rukhsana Lazo MA documented as of this encounter Visit Diagnoses Diagnosis Gastroesophageal reflux disease with esophagitis- Primary documented in this encounter Care Teams Reservations Sales Supervisor Relationship Specialty Start Date End Date Feliciano Dash MD [address] [facility] [address] [place] [id number] PCP - General Internal Medicine 12/15/15 06/11/21 Jonathan Hartman, RN Systems Consultant 07/14/15 documented as of this encounter
--- OUTSIDE RECORDS SUMMARY | 2024-04-29 19:19 | XMS_ITS | Encounter Summary ---
Author Organization [facility] Address [address] [place] [address] Care Team Providers Care Specialty Sales Consultant Name Role Phone MinnieJonathan mckeon RN Unavailable [phone] Feliciano Dash MD Primary Care Provider [phone] Encounter Details Date Type Department Care Team (Late st Contact Info) Description 04/25/2016 Orders Only [facility] - [address] [address] Armando Corona MD [address] [place] [phone] Gastritis, presence of bleeding unspecified, unspecified chronicity, unspecified gastritis type Social History Tobacco Use Types Packs/Day Years [...] No 04/06/2016 documented as of this encounter Progress Notes * Curtis Garland I - 04/25/2016 8:48 AM CST Spoke to patient and told her Per Dr. Corona order Zantac (Rantitadine 150 mg) BID. Pt also is requesting Carafate. Will ask Dr. Corona NG GRADER documented in this encounter Plan of Treatment Not on file documented as of this encounter Goals Goal Patient Goal Type Associated Problems Recent Progress Patient-Stated? Author Yearly PCP visit Lifestyle No Rukhsana Lazo MA documented as of this encounter Visit Diagnoses Diagnosis Gastritis, presence of bleeding unspecified, unspecified chronicity, unspecified gastritis type- Primary documented in this encounter Care Teams Specialty Sales Consultant Relationship Specialty Start Date End Date Feliciano Dash MD [address] [facility] [address] [place] [id number] PCP - General Internal Medicine 12/15/15 06/11/21 Jonathan Hartman, RN Quality Systems Technician 07/14/15 documented as of this encounter
--- OUTSIDE RECORDS SUMMARY | 2024-04-29 19:19 | XMS_ITS | Encounter Summary ---
Author Organization [facility] Address [address] [place] [address] Care Team Providers Care Canvas Repairer Name Role Phone Minnie Jonathan Delaney RN Unavailable [phone] Feliciano Dash MD Primary Care Provider [phone] Reason for Visit * Auth/Cert Specialty Diagnoses / Procedures Referred By Kaylynn t Referred To Contact Diagnoses Abdominal pain, unspecified abdominal location Abdominal pain, unspecified abdominal location Procedures COLONOSCOPY SCREEN Referral ID Status Reason Start Date Expiration Date Visits Re quested Visits Authorized [id number] 1 1 Encounter Details Date Type Department Care Team (Latest Contact Info) Description 12/15/2015 11:08 AM CDT - 12/15/2015 1:35 PM CDT Hospital Encounter [facility] - Endoscopy Services [address] [place] [address] Armando Corona MD [address] [place] [address] [place] [phone] Surgery General Discharge Disposition: Home or Self Care Social [...] Sign Reading Time Taken Comments Blood Pressure 122/79 12/15/2015 11:59 AM CDT Pulse 97 12/15/2015 11:59 AM CDT Temperature 36.4 ??C (97.6 ??F) 12/15/2015 11:59 AM C DT Respiratory Rate 19 12/15/2015 11:59 AM CDT Oxygen Saturation 99% 12/15/2015 11:59 AM CDT Inhaled Oxygen Concentration - - Weight 77.1 kg (170 lb) 12/15/2015 11:59 AM CDT Height 167.6 cm (5' 6 ) 12/15/2015 11:59 AM CDT Body Mass Index 27.44 12/15/2015 11:59 AM CDT documented in this encounter Functional [...] No 12/15/2015 documented as of this encounter Medications at Time of Discharge [...] tongue every 12 hours as needed 11/14/2015 SUMAtriptan Succinate 6 MG/0.5MLIndications:Doron samuel without aura [...] mouth 3 times daily as needed 01/29/2017 hydroxychloroquine (PLAQUENIL) 200 MG tabletIndications:Rheum atoid [...] AND DINNER 180 Tab 1 09/30/2015 07/03/2016 pantoprazole EC (PROTONIX) 40 MG tabletIndications:Gastr oesophageal reflux disease without esophagitis Take 1 Tab by mouth 2 times daily,before breakfast and supper 60 Tab 1 09/29/2015 12/21/2015 sucralfate (CARAFATE) 1 GM/10ML suspension Take 10 mL by mouth 4 times daily - before meals & nightly 420 mL 1 07/16/2015 04/25/2016 documented as of this encounter Progress Notes * Armando Corona MD - 12/19/2015 8:12 AM CDTQuick Note: Neg colon biopsies * Armando Corona MD - 12/17/2015 11:12 AM CDTQuick Note: Neg colon biopsies documented in this encounter H&P Notes * Armando Corona MD - 12/15/2015 12:17 PM CDT PRE-PROCEDURE HISTORY & PHYSICAL NOTE (Presedation assessment per Anesthesia Team) 12/15/2015 12:17 PM Patient: Madalyn Walton, date of 1975 Procedure(s) planned: colonoscopy Indication(s): abd pain, lactoferrin pos stool History: Patient Active Problem List Diagnosis ??? Acute cystitis without hematuria ??? Migraine without status migrainosus, not intractable ??? RA (rheumatoid arthritis) ??? Diverticulitis of colon Past Medical History Diagnosis Date ??? Diverticulitis [...] GASTROINTESTINAL TRACT IMAGING INTRALUMINAL ESOPHAGUS THROUGH ILEUM Allergies Allergen Reactions ??? Ibuprofen Other Stomach ulcers Current Facility-Administered Medications Medication Dose Route Frequency Provider Last Rate Last Dose ??? 0.9% NaCl injection 3 mL 3 mL Intracatheter pre-Procedure multiple Armando Corona MD ??? 0.9% NaCl infusion Intravenous Continuous Armando Corona MD ??? 0.9% NaCl infusion Intravenous Continuous Armando Corona MD Review of systems: Chest pain: No. Shortness of breath: No. Review of systems otherwise negative. Physical Exam: BP 122/79 mmHg Pulse 97 Temp(Src) 97.6 ??F Resp 19 Wt 77.111 kg (170 lb) BMI 27.45 kg/m2 GENERAL: The patient is alert, oriented and in no apparent distress. HEENT: Neck supple, posterior pharynx is clear. LUNGS: Lungs are clear to auscultation. CVS: Heart sounds are normal, no murmurs. ABDOMEN: Soft, no tenderness, masses or organomegaly. EXTREMITIES: Normal. NEURO: Non-focal. Pain assessment: denies Sedation Plan: Monitored Anesthesia Care (MAC) by the anesthesia team. Procedure Plan: Based on the above assessment, we will perform the procedures indicated above. I have discussed the plan, risks, benefits and alternatives with the patient or guardian. When assessment above was not obtained immediately before the procedure, I have reassessed this patient and there are no changes. INFORMED CONSENT FOR ENDOSCOPIC PROCEDURES Endoscopic procedures are very safe but there are definite risks which are outlined below. Anesthesia Risks 1. Risk of respiratory depression and hypoxia (not getting enough oxygen in blood). This can usually be easily treated and reversed but may require intubation (breathing tube) and mechanical ventilation. 2. Risk of allergic reaction to anesthesia medication 3. Risk of aspiration causing cough, infection or other pulmonary problems Bleeding risks Bleeding may be immediate or delayed. It is usually associated with biopsy or polyp removal. Significant bleeding at time of procedure will be treated by various methods to stop the bleeding. Bleeding may require longer hospitalization, blood transfusion, repeat endoscopic procedures or possible gregorio gordon to stop the bleeding. IV Risks A new IV may need to be placed to give sedation. With placement of IV there is risk of multiple attempts to place catheter and pain associated. Risks of infection of IV site and blood clots possible leading to severe vascular complications. Missed lesions Endoscopic procedures (colonoscopy, upper endoscopy) are believed to be the best procedures to findabnormalities in the intestines including polyps and cancer. These procedures ARE NOT 100% successful and abnormalities may be missed. This is highly dependent on how well the bowel is cleaned out and patients individual anatomy. Risk of Perforation All endoscopic procedures have risk of perforation (causing a hole in the intestines). This is a VERY RARE but serious complication. It usually requires immediate surgery. There are multiple conditions that increase the chance of of perforation including but not limited to patients age, previous abdominal surgery , gender, weight, chronic medical problems and diverticular disease of colon. Other risks There have been some reports of diverticulitis and splenic rupture (extremely rare) after colonoscopy. May have sore throat following upper endoscopy May have damage to teeth or dental appliances with upper endoscopy Patient understands above risks prior to procedure and has or will sign hospital consent prior to procedure. PROCEDURES MAY BE UNSUCCESSFUL DUE TO ANATOMY, CLINICAL CONDITION OR PREP AND MAY BE STOPPED BEFORECOMPLETION. RECOMMENDATIONS MAY INCLUDE REPEAT PROCEDURE, X-RAY PROCEDURE OR OTHER STUDIES. COMPLICATIONS MAY LEAD TO PROLONGED HOSPITALIZATION, CHRONIC MEDICAL PROBLEMS AND . Armando Corona MD documented in this encounter Procedure Notes * Armando Corona MD - 12/15/2015 12:53 PM CDTAssociated Order(s): ENDOSCOPY, COLON, SCREENING Neg colon s/p random bx documented in this encounter Plan of Treatment Not on file documented as of this encounter Goals Goal Patient Goal Type Associated Problems Recent Progress Patient-Stated? Author Yearly PCP visit Lifestyle No Rukhsana Lazo MA documented as of this encounter Procedures Procedure Name Priority Date/Time Associated Diagnosis Comments PATHOLOGY TISSUE EXAM (STL) Routine 12/15/2015 12:34 PM CDT Abdominal pain, unspecified abdominal location COLONOSCOPY BIOPSY (ANY METHOD) 12/15/2015 12:27 PM CDT Abdominal pain, unspecified abdominal location COLONOSCOPY SCREEN 12/15/2015 12 :27 PM CDT Abdominal pain, unspecified abdominal location ENDOSCOPY, COLON, SCREENING Routine 12/15/2015 12:23 PM CDT HCG URINE QUALITATIVE - POINT OF CARE Routine 12/15/2015 11:35 AM CDT documented in this encounter Results * GROSS + MICRO EXAM (STL) (12/15/2015 12:34 PM CDT) Case Report Surgical Pathology Report ? Case: [id number] ? Authorizing Provider: ??Armando Corona MD ?Collected: ? 12/15/2015 12:34 PM ? Ordering Location: ? [facility] ?Received: ?12/16/2015 09:42 AM ? Pathologist: ? Doris Morrison MD ? Specimen: ?Colon Biopsy, random colon biopsy ? 12/17/2015 10:[address] [facility] Final Diagnosis 1. ??Large intestine, random colon, endoscopic biopsy: -- ??No histopathologic abnormality OBEY/tao 12/17/2015 10:19 AM [facility] Gross Description Received in formalin in a container labeled Madalyn Walton, random colon biopsy. ??The container holds multiple pink-baird tissue fragments measuring from 0.2 cm up to 0.4 cm. The specimen is entirely submitted in a cassette labeled A1. DYT/eloy 12/17/2015 10:[address] [facility] Microscopic Description Histologic sections show fragments of large intestinal mucosa without specific histopathologic abnormality. ??There is no evidence of lymphocytic or collagenous colitis. ??There is no evidence of dysplasia or malignancy. ?? OBEY/tao 12/17/2015 10:19 AM [facility] Pathology/Cytolo gy COLONIC BIOPSY SPECIMEN / Unknown 12/15/2015 12:34 PM CDT 12/16/2015 9:42 AM CDT Armando Corona MD LAB - PATHOLOGY/CYTO LOGY ORDERABLES [facility] [address] [place] [address] * ENDOSCOPY, COLON, SCREENING (12/15/2015 12:23 PM CDT) Report Endoscopy POC _ Patient Name: Madalyn Walton ? Procedure Date: 12/15/2015 12:23 PM ? Date of : 1975 ?Admit Type: Outpatient Age: 40 ? Gender: Female Attending MD: Armando Corona , ? _ Procedure: ? Colonoscopy Indications: ? Lower abdominal pain Providers: ? Armando Corona (Doctor), Enma Wong, ? Watch Dial Printer Patient Profile: ?? 40F pmh 40F pmh depression, arthritis, diverticulitis ? early 2015, prior gastric ulcer healed 07/2015, ? diverticulitis early 2016 here to evaluate continued lower ? abd pain in setting of pos lactoferrin stools Referring MD: ?Feliciano Dash Md (Referring MD) Medicines: ? Monitored Anesthesia Care Complications: ? No immediate complications. _ Procedure: ? After I obtained informed consent, the scope was passed ? under direct vision. Throughout the procedure, the ? patient's blood pressure, pulse, and oxygen saturations ? were monitored continuously. The Colonoscope was ? introduced through the anus and advanced to the cecum, ? identified by appendiceal orifice and ileocecal valve. The ? colonoscopy was performed without difficulty. The patient ? tolerated the procedure well. The quality of the bowel ? preparation was good. ? Impression: ?- The entire examined colon is normal on direct and ? retroflexion views. ? - The distal rectum and anal verge are normal on ? retroflexion view. Findings: ? The perianal and digital rectal examinations were normal. ? The entire examined colon appeared normal on direct and retroflexion ? views. Radnom biopsies were taken with a cold forceps for histology from ? the entire colon ? The retroflexed view of the distal rectum and anal verge was normal and ? showed no anal or rectal abnormalities. _ Recommendation: ?- Await pathology results - will consider TCA if biopsies ? are negative ? Procedure Code(s): ? --- Professional --- ? 88523, Colonoscopy, flexible; with biopsy, single or multiple ? --- Technical --- ? 99226, Colonoscopy, flexible; with biopsy, single or multiple Diagnosis Code(s): ? --- Professional --- ? R10.30, Lower abdominal pain, unspecified ? --- Technical --- ? R10.30, Lower abdominal pain, unspecified CPT copyright 2015 [employer]. All rights reserved. The codes documented in this report are preliminary and upon information coder review may be revised to meet current compliance requirements. Armando Corona, 12/15/2015 12:47:51 PM This report has been signed electronically. Number of Addenda: 0 Note Initiated On: 12/15/2015 12:[address] [facility] 12/15/2015 12:2 3 PM CDT Narrative Transcriptions Armando Corona MD - 12/15/2015 12:53 PM CDT Neg colon s/p random bx Armando Corona MD GI PROCEDURE ORDERAB LES Performing Organization Address City/[facility] Co de Phone Number [facility] * HCG URINE QUALITATIVE - POINT OF CARE (IP) (12/15/2015 11:35 AM CDT) HCG Qual Urine Negative Negative [facility] POCT TESTING QC Verified Yes Yes [facility] POC T TESTING Urine specimen (specimen) URINE / Unknown 12/15/2015 11:35 AM CDT Armando Corona MD LAB - POINT OF CARE ORDERABLES Performing Organization Address [facility] Co de Phone Number [facility] POCT TESTING [address] [phone] documented in this encounter Visit Diagnoses Diagnosis Abdominal pain, unspecified abdominal location documented in this encounter Administered Medications Inactive Administered Medications - up to 3 most recent administrations Medication Order MAR Action Action Date Dose Rate Site 0.9% NaCl infusion at 20 mL/hr, Intravenous, CONTINUOUS, Starting on Leydi 12/15/15 at 1215, Until Leydi 12/15/15 at 1444, Pre-procedure (GI) $ New Bag/Syringe 12/15/2015 12:24 PM CDT 1,000 mL 20 mL/hr documented in this encounter Active and Recently Administered Medications Times are shown in CDT. Continuous Medication Order 12/13/2015 12/14/2015 12/15/2015 0.9% NaCl infusion (CANCELED) at 20 mL/hr, Intravenous, CONTINUOUS, Starting on Leydi 12/15/15 at 1215, Until Leydi 12/15/15 at 1444, Pre-procedure (GI) 1224 ($ New Bag/Syri nge - Provider: Barbi Khanna RN)1245 (Anesthesia Volume Adjustment - Provider: Kenan García APRN-DIRECTOR OF SERVICES) documented in this encounter Care Teams Canvas Repairer Relationship Specialty Start Date End Date Feliciano Dash MD [address] [facility] [address] [place] [address] PCP - General Internal Medicine 12/15/15 06/11/21 Jonathan Hartman RN Executive Chef 07/14/15 documented as of this encounter
--- OUTSIDE RECORDS SUMMARY | 2024-04-29 19:19 | XMS_ITS | Encounter Summary ---
Author Organization [facility] Address [address] [place] [address] Care Team Providers Care Varnisher Apprentice Name Role Phone Minnie Jonathan Delaney RN Unavailable [phone] Feliciano Dash MD Primary Care Provider [phone] Reason for Visit * Reason Comments Refill Request Encounter Details Date Type Department Care Team (Late st Contact Info) Description 04/05/[address] [facility] - [address] [address] Preston Mixon MD [address] [place] [address] Refill Request Social History Tobacco Use [...] Telephone Encounter - Sanjeev Zeng MA - 04/08/2017 8:51 AM CATTLE RANCHER Refill request for zantac sent to Md to approve. CB LE RANCHER documented in this encounter Plan of Treatment Not on file documented as of this encounter Goals Goal Patient Goal Type Associated Problems Recent Progress Patient-Stated? Author Yearly PCP visit Lifestyle No Rukhsana Lazo MA documented as of this encounter Visit Diagnoses Not on filedocumented in this encounter Care Teams Varnisher Apprentice Relationship Specialty Start Date End Date Feliciano Dash MD [address] [facility] [address] [place] [phone] PCP - General Internal Medicine 12/15/15 06/11/21 Jonathan Hartman, RN Actuarial Consultant 07/14/15 documented as of this encounter
--- OUTSIDE RECORDS SUMMARY | 2024-04-29 19:19 | XMS_ITS | Encounter Summary ---
Author Organization [facility] Address [address] [facility] [place] [address] Care Team Providers Care Register Repairer Name Role Phone MinnieJonathan mckeon RN Unavailable [phone] Feliciano Dash MD Primary Care Provider [phone] Encounter Details Date Type Department Care Team (Late st Contact Info) Description 04/06/2016 Orders Only [facility] - [address] [address] Armando Corona MD [address] [place] [phone] Social History Tobacco Use Types Packs/Day [...] No 04/06/2016 documented as of this encounter Plan of Treatment Not on file documented as of this encounter Goals Goal Patient Goal Type Associated Problems Recent Progress Patient-Stated? Author Yearly PCP visit Lifestyle No Rukhsana Lazo MA documented as of this encounter Visit Diagnoses Not on filedocumented in this encounter Care Teams Register Repairer Relationship Specialty Start Date End Date Feliciano Dash MD [address] [facility] [address] [place] [address] PCP - General Internal Medicine 12/15/15 06/11/21 Jonathan Hartman, RN Welcome Desk Agent 07/14/15 documented as of this encounter
--- OUTSIDE RECORDS SUMMARY | 2024-04-29 19:19 | XMS_ITS | Encounter Summary ---
Author Organization [facility] Address [address] [facility] [place] [address] Care Team Providers Care Product Transfer Pumper Name Role Phone MinnieJonathan mckeon RN Unavailable [phone] Feliciano Dash MD Primary Care Provider [phone] Encounter Details Date Type Department Care Team (Late st Contact Info) Description 04/25/2016 Orders Only [facility] - [address] [address] Armando Corona MD [address] [place] [phone] Gastritis, presence of bleeding unspecified, unspecified [...] Notes * Curtis Garland I - 04/25/2016 9:[address] Corona added Carafate per request of patient. WM OPRACTOR ASSISTANT documented in this encounter Plan of Treatment Not on file documented as of this encounter Goals Goal Patient Goal Type Associated Problems Recent Progress Patient-Stated? Author Yearly PCP visit Lifestyle No Rukhsana Lazo MA documented as of this encounter Visit Diagnoses Diagnosis Gastritis, presence of bleeding unspecified, unspecified chronicity, unspecified gastritis type- Primary documented in this encounter Care Teams Product Transfer Pumper Relationship Specialty Start Date End Date Feliciano Dash MD [address] [facility] [address] [facility] [address] [place] [phone] PCP - General Internal Medicine 12/15/15 06/11/21 Jonathan Hartman RN Identity Management Consultant 07/14/15 documented as of this encounter
--- OUTSIDE RECORDS SUMMARY | 2024-04-29 19:19 | XMS_ITS | Encounter Summary ---
Author Organization [facility] Address [address] [facility] [place] [address] Care Team Providers Care Solar Installer Pv Name Role Phone Minnie Jonathan Delaney RN Unavailable [phone] Feliciano Dash MD Primary Care Provider [phone] Reason for Visit * Reason Comments Refill Request Encounter Details Date Type Department Care Team (Late st Contact Info) Description 02/11/2017 Refill [facility] - [address] [address] Armando Corona MD [address] [place] [phone] Refill Request Social History Tobacco Use [...] Telephone Encounter - Sanjeev Zeng MA - 02/11/2017 3:24 PM CDT Received refill request fax from pharmacy ranitidine 150 mg. Sent to in absence. CB documented in this encounter Plan of Treatment Not on file documented as of this encounter Goals Goal Patient Goal Type Associated Problems Recent Progress Patient-Stated? Author Yearly PCP visit Lifestyle No Rukhsana Lazo MA documented as of this encounter Visit Diagnoses Not on filedocumented in this encounter Care Teams Solar Installer Pv Relationship Specialty Start Date End Date Feliciano Dash MD [address] [facility] [address] [facility] [address] [place] [phone] PCP - General Internal Medicine 12/15/15 06/11/21 Jonathan Hartman, RN Cable Tv Installer 07/14/15 documented as of this encounter
--- OUTSIDE RECORDS SUMMARY | 2024-04-29 19:19 | XMS_ITS | Patient Health Summary ---
Author Organization [facility] Address [address] [place] [address] Care Team Providers Care Back Maker Name Role Phone Jonathan Hartman RN Unavailable [phone] Feliciano Dash MD Primary Care Provider [phone] Note from [facility],non-owned Affiliates and Associated Physician Practices is amultiple site organization consisting of ambulatory clinics and hospital sitesin [place], [place], [place] and [place]. This disclosure is being madepursuant to the Care Everywhere program and may not contain all information available regarding this patient. Last updated 18.[facility] Allergies * Ibuprofen(Other) -Medium Criticality Medications * Be aware that medications may not be up to date on this document. Alwaysverify current medications with the patient. * DULoxetine (CYMBALTA) 60 MG capsule Take 60 mg by mouth once daily Takes with 30 mg (total daily dose: 90 mg) * hyoscyamine, disintergrating, (NULEV) 0.125 MG tablet(Started 08/05/2015) Take 1 Tab by mouth every 3 hours as needed (abd pain) * linaclotide (LINZESS) 145 MCG capsule(Started 09/15/2015) Take 1 Cap by mouth daily before breakfast Take on an empty stomach at least 30 minutes prior to first meal of the day. 3 refills left * ondansetron, disintegrating, (ZOFRAN ODT) 4 MG tablet(Started 11/14/2015) Dissolve 4 mg under the tongue every 12 hours as needed * SUMAtriptan Succinate 6 MG/0.5ML(Started 11/07/2015) 1 injection at onset of migraine, may repeat 1 hour later if needed. Max 2 injections per 24 hours * pantoprazole EC (PROTONIX) 40 MG tablet(Started 12/21/2015) TAKE 1 TABLET BY MOUTH TWICE DAILY BEFORE BREAKFAST AND DINNER 3 refills left * azaTHIOprine (IMURAN) 50 MG tablet Take by mouth once daily * Other CDB-THC (1:1 ratio) 25 mg patch transdermal route every 24 hours. Obtains from [facility] in [place]. Reasons: Rhemuatoid arthiritis and Meredith-Danlos syndrome * Other CDB-THC (1:1 ratio) 10 mg capsule by mouth daily. Obtains from [facility] in [place]. Reasons: Rheumatoid arthritis and Meredith-Danlos syndrome * traZODone (DESYREL) 100 MG tablet Take 100 mg by mouth at bedtime * topiramate (TOPAMAX) 100 MG tablet Take 200 mg by mouth at bedtime Reasons: Migraine Headache * clonazePAM (KLONOPIN) 0.5 MG tablet Take 0.5 mg by mouth once daily as needed for Anxiety * DULoxetine (CYMBALTA) 30 MG capsule Take 30 mg by mouth once daily Takes with 60 mg (total daily dose: 90 mg) * HYDROcodone-acetaminophen (NORCO) 5-325 MG tablet(Started 02/02/2017) Take 1 tablet by mouth every 8 hours as needed * dextromethorphan-guaiFENesin ER 12hr (MUCINEX DM) 30-600 MG tablet(Started 02/02/2017) Take 1 tablet by mouth 2 times daily * guaiFENesin (ROBITUSSIN) 100 MG/5ML solution(Started 02/02/2017) Take 10 mL by mouth every 6 hours as needed for Cough * saccharomyces (FLORASTOR) 250 MG capsule(Started 02/02/2017) Take 1 capsule by mouth once daily * raNITIdine (ZANTAC) 150 MG tablet(Started 04/13/2017) TAKE 1 TABLET BY MOUTH TWICE DAILY * CARAFATE 1 GM/10ML suspension(Started 10/15/2017) TAKE 10 ML BY MOUTH FOUR TIMES DAILY BEFORE MEALS AND NIGHTLY * CARAFATE 1 GM/10ML suspension(Started 10/15/2017) TAKE 10 ML BY MOUTH FOUR TIMES DAILY BEFORE MEALS AND NIGHTLY * raNITIdine (ZANTAC) 150 MG tablet(Started 10/15/2017) TAKE 1 TABLET BY MOUTH TWICE DAILY Active Problems Problem Noted Date Diagnosed Date Sepsis 01/29/2017 Pneumonia of right lung due to infectious organi sm 01/29/2017 RA (rheumatoid arthritis) 11/18/2015 Diverticulitis of colon 11/18/2015 Acute cystitis without hematuria 07/14/2015 Migraine headache 11/16/2013 Immunizations * INFLUENZA VACCINE, QUADR. (FLUZONE; FLULAVAL; FLUARIX; AFLURIA QUADRIVALENT; 6MO+), 0.5 ML (IIV4)(Given 01/30/2017) Social History Tobacco Use Types Packs/Day Years [...] Mass Index 28.49 01/29/2017 7:54 PM CDT Procedures * CARDIAC EKG ORDER(Performed 02/04/2017) * XR CHEST 2VW(Performed 02/01/2017) Performed for SOB (shortness of breath), Pneumonia of right lung due to infectious organism, unspecified part of lung * BASIC METABOLIC PANEL (CALCIUM TOTAL)(Performed 02/01/2017) * CBC W AUTO DIFFERENTIAL(Performed 02/01/2017) * BASIC METABOLIC PANEL (CALCIUM TOTAL)(Performed 01/31/2017) * CBC W AUTO DIFFERENTIAL(Performed 01/31/2017) * CHLAMYDIA ANTIBODY IGG/IGM PANEL(Performed 01/30/2017) * MYCOPLASMA PNEUMONIAE AB IGG/IGM PANEL(Performed 01/30/2017) * CBC W AUTO DIFFERENTIAL(Performed 01/30/2017) * BASIC METABOLIC PANEL (CALCIUM TOTAL)(Performed 01/30/2017) * HISTOPLASMA GALACTOMANNAN AG URINE(Performed 01/29/2017) * RESPIRATORY PATHOGEN PANEL BY PCR(Performed 01/29/2017) * CULTURE BLOOD(Performed 01/29/2017) * CULTURE BLOOD(Performed 01/29/2017) * CT ANGIO CHEST PULM EMBOLISM(Performed 01/29/2017) Performed for SOB (shortness of breath) * HCG URINE QUALITATIVE - POINT OF CARE(Performed 01/29/2017) * D-DIMER(Performed 01/29/2017) * INFLUENZA A+B ANTIGEN RAPID(Performed 01/29/2017) * EKG 12-LEAD(Performed 01/29/2017) Performed for SOB (shortness of breath) * LACTIC ACID BLOOD(Performed 01/29/2017) * COMPREHENSIVE METABOLIC PANEL(Performed 01/29/2017) * CBC W AUTO DIFFERENTIAL(Performed 01/29/2017) * XR CHEST 2VW(Performed 01/29/2017) Performed for SOB (shortness of breath) * CT ABDOMEN PELVIS WO CONTRAST(Performed 05/17/2016) Performed for Flank pain * HCG URINE QUALITATIVE - POINT OF CARE(Performed 05/17/2016) * URINALYSIS REFLEX MICROSCOPIC REFLEX CULTURE(Performed 05/17/2016) * CULTURE URINE(Performed 05/17/2016) * COMPREHENSIVE METABOLIC PANEL(Performed 05/17/2016) * CBC W AUTO DIFFERENTIAL(Performed 05/17/2016) * HELICOBACTER PYLORI UREASE (STL)(Performed 04/06/2016) Performed for Epigastric pain * ESOPHAGOGASTRODUODENOSCOPY (EGD) BIOPSY(Performed 04/06/2016) Performed for Epigastric pain * ESOPHAGOGASTRODUODENOSCOPY (EGD) DIAGNOSTIC(Performed 04/06/2016) Performed for Epigastric pain * EGD(Performed 04/06/2016) * HCG URINE QUALITATIVE - POINT OF CARE(Performed 04/06/2016) * ENDOSCOPY, COLON, DIAGNOSTIC(Performed 12/15/2015) Performed for Abdominal pain, unspecified abdominal location, Other constipation, Chronic inflammation of colon * PATHOLOGY TISSUE EXAM (STL)(Performed 12/15/2015) Performed for Abdominal pain, unspecified abdominal location * COLONOSCOPY BIOPSY (ANY METHOD)(Performed 12/15/2015) Performed for Abdominal pain, unspecified abdominal location * COLONOSCOPY SCREEN(Performed 12/15/2015) Performed for Abdominal pain, unspecified abdominal location * ENDOSCOPY, COLON, SCREENING(Performed 12/15/2015) * HCG URINE QUALITATIVE - POINT OF CARE(Performed 12/15/2015) * LIPASE BLOOD(Performed 08/27/2015) * COMPREHENSIVE METABOLIC PANEL(Performed 08/27/2015) * CBC W AUTO DIFFERENTIAL(Performed 08/27/2015) * HCG URINE QUALITATIVE - POINT OF CARE(Performed 08/27/2015) * URINALYSIS REFLEX MICROSCOPIC REFLEX CULTURE(Performed 08/27/2015) * CULTURE URINE(Performed 08/27/2015) * CARDIAC EKG ORDER(Performed 08/14/2015) * URINE MICROSCOPIC ONLY REFLEX TO CULTURE(Performed 08/12/2015) * URINALYSIS REFLEX MICROSCOPIC REFLEX CULTURE(Performed 08/12/2015) * CULTURE URINE(Performed 08/12/2015) * HCG URINE QUALITATIVE - POINT OF CARE(Performed 08/12/2015) * EKG 12-LEAD(Performed 08/12/2015) Performed for Abdominal pain, generalized * PT-INR(Performed 08/12/2015) * COMPREHENSIVE METABOLIC PANEL(Performed 08/12/2015) * CBC W AUTO DIFFERENTIAL(Performed 08/12/2015) * CBC W AUTO DIFFERENTIAL(Performed 08/05/2015) * ENDOSCOPY DRUG INDUCED SLEEP EVALUATION(Performed 08/04/2015) * HEMOGLOBIN(Performed 08/04/2015) * PATHOLOGY TISSUE EXAM (STL)(Performed 08/04/2015) Performed for Diagnosis unknown * COLONOSCOPY WITH REMOVAL OF TUMOR OR POLYP BY SNARE TECHNIQUE(Performed 08/04/2015) Performed for Diagnosis unknown * COLONOSCOPY SCREEN(Performed 08/04/2015) Performed for Diagnosis unknown * ENDOSCOPY, COLON, DIAGNOSTIC(Performed 08/04/2015) * PATHOLOGY TISSUE EXAM (STL)(Performed 08/03/2015) Performed for Diagnosis unknown * ESOPHAGOGASTRODUODENOSCOPY (EGD) BIOPSY(Performed 08/03/2015) Performed for Diagnosis unknown * ESOPHAGOGASTRODUODENOSCOPY (EGD) DIAGNOSTIC(Performed 08/03/2015) Performed for Diagnosis unknown * EGD(Performed 08/03/2015) * BASIC METABOLIC PANEL (CALCIUM TOTAL)(Performed 08/03/2015) Performed for Pancreatitis, unspecified pancreatitis type (HCC) * CULTURE STOOL+ E COLI SHIGA-LIKE TOXIN(Performed 08/02/2015) Performed for Diarrhea * LIPID PROFILE(Performed 08/02/2015) Performed for Pancreatitis, unspecified pancreatitis type (HCC) * ALCOHOL ETHYL BLOOD(Performed 08/02/2015) Performed for Pancreatitis, unspecified pancreatitis type (HCC) * HGB HCT PANEL(Performed 08/02/2015) Performed for Pancreatitis, unspecified pancreatitis type (HCC) * CT ABDOMEN PELVIS W CONTRAST(Performed 08/01/2015) Performed for Abdominal pain, generalized * HCG URINE QUALITATIVE - POINT OF CARE(Performed 08/01/2015) * URINE MICROSCOPIC ONLY REFLEX TO CULTURE(Performed 08/01/2015) * URINALYSIS REFLEX MICROSCOPIC REFLEX CULTURE(Performed 08/01/2015) * CULTURE URINE(Performed 08/01/2015) * TYPE + SCREEN PANEL(Performed 08/01/2015) * LIPASE BLOOD(Performed 08/01/2015) * COMPREHENSIVE METABOLIC PANEL(Performed 08/01/2015) * CBC W AUTO DIFFERENTIAL(Performed 08/01/2015) * LAB RESULTS ORDER(Performed 07/19/2015) * PATHOLOGY TISSUE EXAM (STL)(Performed 07/15/2015) Performed for Diagnosis unknown * ESOPHAGOGASTRODUODENOSCOPY (EGD) BIOPSY(Performed 07/15/2015) Performed for Diagnosis unknown * ESOPHAGOGASTRODUODENOSCOPY (EGD) DIAGNOSTIC(Performed 07/15/2015) Performed for Diagnosis unknown * EGD(Performed 07/15/2015) * HCG URINE QUALITATIVE - POINT OF CARE(Performed 07/15/2015) Performed for Intractable abdominal pain * MPO/NM 3 AUTOANTIBODIES PANEL(Performed 07/15/2015) Performed for Diverticulitis of colon * CBC W AUTO DIFFERENTIAL(Performed 07/15/2015) Performed for Acute cystitis without hematuria * LACTIC ACID BLOOD(Performed 07/15/2015) Performed for Diverticulitis of colon * C-REACTIVE PROTEIN(Performed 07/15/2015) Performed for Diverticulitis of colon * ERYTHROCYTE SEDIMENTATION RATE(Performed 07/15/2015) Performed for Diverticulitis of colon * LACTOFERRIN FECAL QUALITATIVE(Performed 07/14/2015) Performed for Diverticulitis of colon * C DIFFICILE GDH AG + TOXIN A+B(Performed 07/14/2015) Performed for Diverticulitis of colon * CULTURE STOOL+ E COLI SHIGA-LIKE TOXIN(Performed 07/14/2015) Performed for Diverticulitis of colon * URINALYSIS REFLEX MICROSCOPIC REFLEX CULTURE(Performed 07/14/2015) * CULTURE URINE(Performed 07/14/2015) * LIPASE BLOOD(Performed 07/13/2015) * COMPREHENSIVE METABOLIC PANEL(Performed 07/13/2015) * CBC W AUTO DIFFERENTIAL(Performed 07/13/2015) * XR HAND BILAT 2VW(Performed 06/29/2015) Performed for Pain in joint, pain in unspecified joint Results * CARDIAC EKG ORDER (02/04/2017 11:51 PM CDT) Only the most recent of2 resultswithin the time period is included. Narrative 02/04/2017 11:51 PM CDT Ordered by an unspecified provider. Scanned Document CARDIAC SERVICES ORD ERABLES * XR CHEST PA AND LATERAL (02/01/2017 7:51 AM CDT) Only the most recent of2 resultswithin the time period is included. Anatomical Region Laterality Modality Chest Radio Fluoroscop [...] MD DIAGNOSTIC IMAGING O RDERABLES * (ABNORMAL) CBC W AUTO DIFFERENTIAL (02/01/2017 3:29 AM CDT) Only the most recent of11 resultswithin the time period is included. WBC 7.2 4.4 - 10.7 x10E9/L 02/01/2017 4:35 AM CDT [facility] WBC Corrected x10E9/L 02/01/2017 4:35 AM CDT [facility] RBC 3.88 3.80 - 5.20 x10E12/L 02/01/2017 4:35 AM CDT [facility] Hemoglobin 11.3(L) 12.0 - 15.6 gm/dL 02/01/2017 4:35 AM CDT [facility] Hematocrit 35.1(L) 35.9 - 45.5 % 02/01/2017 4:35 AM CDT [facility] MCV 90.5 80.7 - 98.3 fl 02/01/2017 4:35 AM CDT [facility] MCH 29.1 26.7 - 34.0 pg 02/01/2017 4:35 AM CDT [facility] MCHC 32.2 30.8 - 35.9 gm/dL 02/01/2017 4:35 AM CDT [facility] Platelet Count 313 153 - 416 x10E9/L 02/01/2017 4:35 AM CDT [facility] RDW-CV 13.4 12.1 - 14.9 % 02/01/2017 4:35 AM CDT [facility] MPV 8.7(L) 9.4 - 12.9 fl 02/01/2017 4:35 AM CDT [facility] Neutrophils % 55.7 44.0 - 73.0 % 02/01/2017 4:35 AM CDT [facility] Lymphocytes % 30.7 20.0 - 43.0 % 02/01/2017 4:35 AM CDT [facility] Monocytes % 6.0 5.0 - 13.0 % 02/01/2017 4:35 AM CDT [facility] Eosinophils % 3.5 0.0 - 6.0 % 02/01/2017 4:35 AM CDT [facility] Basophils % 1.0 0.0 - 2.0 % 02/01/2017 4:35 AM CDT [facility] Immature Granulocytes 3.1(H) 0 - 1 % 02/01/2017 4:35 AM CDT [facility] Neutrophil Absolute 3.99 2.01 - 7.14 x10E9/L 02/01/2017 4:35 AM CDT [facility] Lymphocytes Absolute 2.20 1.07 - 3.94 x10E9/L 02/01/2017 4:35 AM CDT [facility] Monocytes Absolute 0.43 0.26 - 1.07 x10E9/L 02/01/2017 4:35 AM CDT [facility] Eosinophils Absolute 0.25 0 - 0.47 x10E9/L 02/01/2017 4:35 AM CDT [facility] Basophils Absolute 0.07 0 - 0.08 x10E9/L 02/01/2017 4:35 AM CDT [facility] Immature Granulocytes Absolute 0.22(H) 0.00 - 0.06 x10E9/L 02/01/2017 4:35 AM CDT [facility] nRBC Auto 0 /100 WBC 02/01/2017 4:35 AM CDT [facility] Blood BLOOD SPECIMEN / Unknown Lab Venipuncture / Unknown 02/01/2017 3:29 AM CDT 02/01/2017 4:22 AM CDT Kristi Shah MD LAB - HEMATOLOGY ORD ERABLES [facility] [address] [place] [address] * (ABNORMAL) BASIC METABOLIC PANEL (CALCIUM TOTAL) (02/01/2017 3:29 AM CDT) Only the most recent of4 resultswithin the time period is included. [employer] Signature Glucose 81 74 - 106 mg/dL 02/01/2017 4:48 AM CDT [facility] Sodium 139 136 - 145 mmol/L 02/01/2017 4:48 AM CDT [facility] Potassium 3.5 3.5 - 5.1 mmol/L 02/01/2017 4:48 AM CDT [facility] Chloride 112(H) 98 - 107 mmol/L 02/01/2017 4:48 AM CDT [facility] CO2 19(L) 22 - 31 mmol/L 02/01/2017 4:48 AM CDT [facility] Calcium 8.3(L) 8.5 - 10.1 mg/dL 02/01/2017 4:48 AM CDT [facility] Anion Gap 8 8 - 16 mmol/L 02/01/2017 4:48 AM CDT [facility] BUN 8 7 - 21 mg/dL 02/01/2017 4:48 AM CDT [facility] Creatinine 0.76 0.50 - 1.30 mg/dL 02/01/2017 4:48 AM CDT [facility] eGFR by MDRD >60 >60 mL/min/1.7 3m2 02/01/2017 4:48 AM CDT [facility] eGFR by MDRD >60 >60 mL/min/1.7 3m2 02/01/2017 4:48 AM CDT [facility] Blood BLOOD SPECIMEN / Unknown Lab Venipuncture / Unknown 02/01/2017 3:29 AM CDT 02/01/2017 4:22 AM CDT Kristi Shah MD LAB - CHEMISTRY MORGAN YEE [facility] [address] [place] [address] * MYCOPLASMA PNEUMO ANTIBODY IGG/IGM PANEL (01/30/2017 2:42 AM CDT) Mycoplasma pneumoniae Antibody IgG <100 0 - 99 U/mL 01/31/2017 4:21 PM CDT [facility] ([facility]) Comment: ? Negative: ? <100 ? Indeterminate: [...] - 769 U/mL 01/31/2017 4:21 PM CDT [facility] ([facility]) Comment: ? Negative ?<770 Clinically significant amount [...] 2:42 AM CDT 01/30/2017 3:08 AM CDT [facility] ([facility]) - 01/31/2017 4:21 PM CDT Performed at: ??01 - [address] ??[id number] Records Clerk: Mahendra Trevino PhD, Phone: ??[phone] Akira Romero MD LAB - SEROLOGY ORDER BOB [facility] ([facility]) [address] [place] [address] * (ABNORMAL) CHLAMYDIA ANTIBODY IGG/IGM PANEL (01/30/2017 2:42 AM CDT) Chlamydia psittaci Antibody IgM <1:10 Neg:<1:10 02/01/2017 5:10 PM CDT [facility] ([facility]) Comment: This test was developed and its performance characteristics determined by [facility]. ??It has not been cleared or approved by the Food and Drug Administration. ??The FDA has determined that such clearance or approval is not necessary. Chlamydia psittaci Antibody IgG <1:16 Neg:<1:16 02/01/2017 5:10 PM CDT [facility] ([facility]) Comment: This test was developed and its performance characteristics determined by [facility]. ??It has not been cleared or approved by the Food and Drug Administration. ??The FDA has determined that such clearance or approval is not necessary. Chlamydia pneumoniae Antibody IgM <1:16 Neg:<1:16 02/01/2017 5:10 PM CDT [facility] ([facility]) Test Information Comment 02/02/20 17 5:10 PM CDT [facility] ([facility]) Comment: This test was developed and its performance characteristics determined by [facility]. It has not been cleared or approved [...] <1:10 Neg:<1:10 02/01/2017 5:10 PM CDT [facility] ([facility]) Chlamydia trachomatis Antibody IgM <0.8 0.0 - 0.7 index 02/01/2017 5:10 PM CDT [facility] ([facility]) Comment: ?Negative ? <0.8 ?Borderline ?0.8 - 1.0 ?Positive ? >1.0 Results for this test are for research purposes only by the assay's hat brim curler. ??The performance characteristics of this product have not been established. ??Results should not be used as a diagnostic procedure without confirmation of the diagnosis by another medically established diagnostic product or procedure. Chlamydia Antibody IgG 1.18(H) 0.00 - 0.90 ratio 02/01/2017 5:10 PM CDT [facility] ([facility]) Comment: ?Negative ? <0.91 ?Equivocal ??0.91 - 1.09 ?Positive ? >1.09 Blood BLOOD SPECIMEN / Unknown Lab Venipuncture / Unknown 01/30/2017 2:42 AM CDT 01/30/2017 3:08 AM CDT Narrative [facility] ([facility]) - 02/01/2017 5:10 PM CDT Performed at: ??01 - [facility] ??[id number] Records Clerk: Curtis Sanchez MD, Phone: ??[phone] Akira Romero MD LAB - CHEMISTRY ORDE RABLES Performing Organization Address [facility] de Phone Number [facility] ([facility]) [address] [place] [address] * HISTOPLASMA GALACTOMANNAN AG URINE (01/29/2017 10:37 PM CDT) Histoplasma galactomannan Antigen Urine <0.5 <0.5 ng/mL 02/01/2017 3:19 PM CDT [facility] ([facility]) Disclaimer Comment 02/01/2017 3:19 PM CDT [facility] ([facility]) Comment: This test was developed and its performance characteristics determined by [facility]. It has not been cleared or approved by the Food and Drug Administration. Urine URINE / Unknown Collection / Unknown 01/29/2017 10:37 PM CDT 01/29/2017 10:43 PM CDT Narrative [facility] ([facility]) - 02/01/2017 3:19 PM CDT Performed at: ??01 - [facility] ??[id number] Records Clerk: Curtis Sanchez MD, Phone: ??[phone] Akira Romero MD LAB - URINE CHEMISTR Y ORDERABLES Performing Organization Address [facility] Co de Phone Number [facility] ([facility]) [address] [place] [address] * RESPIRATORY PATHOGEN PANEL BY PCR (01/29/2017 10:36 PM CDT) Adenovirus PCR Not detected Not detected, Invalid, Indeterminate 01/30/2017 5:53 AM CDT [facility] Human Metapneumovirus PCR Not detected Not detected, Invalid, Indeterminate 01/30/2017 5:53 AM CDT [facility] Human Rhinovirus/Entero virus PCR Not detected Not detected, Invalid, Indeterminate 01/30/2017 5:53 AM CDT [facility] Influenza A Non Subtyped PCR Not detected Not detected, Invalid, Indeterminate 01/30/2017 5:53 AM CDT [facility] Influenza A H1 PCR Not detected Not detected, Invalid, Indeterminate 01/30/2017 5:53 AM CDT [facility] Influenza A H3 PCR Not detected Not detected, Invalid, Indeterminate 01/30/2017 5:53 AM CDT [facility] Influenza A H1 2009 PCR Not detected Not detected, Invalid, Indeterminate 01/30/2017 5:53 AM CDT [facility] Influenza B PCR Not detected Not detected, Invalid, Indeterminate 01/30/2017 5:53 AM CDT [facility] Mycoplasma pneumoniae PCR Not detected Not detected, Invalid, Indeterminate 01/30/2017 5:53 AM CDT [facility] Parainfluenza Virus 1 PCR Not detected Not detected, Invalid, Indeterminate 01/30/2017 5:53 AM CDT [facility] Parainfluenza Virus 2 PCR Not detected Not detected, Invalid, Indeterminate 01/30/2017 5:53 AM CDT [facility] Parainfluenza Virus 3 PCR Not detected Not detected, Invalid, Indeterminate 01/30/2017 5:53 AM CDT [facility] Parainfluenza Virus 4 PCR Not detected Not detected, Invalid, Indeterminate 01/30/2017 5:53 AM CDT [facility] Respiratory Syncytial Virus PCR Not detected Not detected, Invalid, Indeterminate 01/30/2017 5:53 AM CDT [facility] Bordetella pertussis PCR Not detected Not detected, Invalid 01/30/2017 5:53 AM CDT [facility] Coronavirus PCR Not detected Not detected, Invalid, Indeterminate 01/30/2017 5:53 AM CDT [facility] Microbiology NASOPHARYNGEAL SWAB / Unknown Collection / Unknown 01/29/2017 10:36 PM CDT 01/29/2017 10:42 PM CDT Narrative [facility] - 01/30/2017 5:53 AM CDT Coronavirus PCR detects the following coronaviruses: 229E, HKU1, NL63, OC43. Akira Romero MD LAB - MICROBIOLOGY O [place] Performing Organization Address [facility] Co de Phone Number [facility] [address] [place] [address], [facility] [phone] * CULTURE BLOOD (01/29/2017 6:59 PM CDT) Only the most recent of2 resultswithin the time period is included. Culture No growth day 5 CARLOS EDUARDO 02/04/2017 12:00 AM CDT [facility] Blood PERIPHERAL BLOOD / Unknown Venipuncture / Unknown 01/29/2017 6:59 PM CDT 01/29/2017 7:03 PM CDT Clinton Dorman DO LAB - MICROBIOLOGY O [place]LE[place] Performing Organization Address [facility] de Phone Number [facility] [address] [place] [address], [facility] [phone] * CT CHEST PE (01/29/2017 5:23 PM [...] OF CARE (IP) (01/29/2017 4:45 PM CDT) Only the most recent of8 resultswithin the time period is included. Pathologist [facility] HCG Qual Urine Negative Negative [facility] POCT TESTING QC Verified Yes Yes [facility] POC T TESTING Urine URINE / Unknown 01/29/2017 4 :45 PM CDT Clinton Dorman DO LAB - POINT OF CARE ORDERABLES [facility] POCT TESTING [address] [place] [address] * (ABNORMAL) D-DIMER (01/29/2017 3:57 PM CDT) Pathologist [facility] D-Dimer 0.71(H) 0.17 - 0.5 mg/L FEU 01/29/2017 4:14 PM CDT [facility] Blood BLOOD SPECIMEN / Unknown Venipuncture / Unknown 01/29/2017 3:57 PM CDT 01/29/2017 3:59 PM CDT Narrative [facility] - 01/29/2017 4:14 PM CDT The [...] - COAGULATION OR DERABLES Performing Organization Address City/State/[facility] Co de Phone Number [facility] [address] [place] [address] * INFLUENZA A+B ANTIGEN RAPID (01/29/2017 1:38 PM CDT) [facility] [address] Influenza A Antigen Negative Negative 01/29/2017 1:55 PM CDT [facility] Influenza B Antigen Negative Negative 01/29/2017 1:55 PM CDT [facility] Microbiology NASOPHARYNGEAL SWAB / Unknown Collection / Unknown 01/29/2017 1:38 PM CDT 01/29/2017 1:43 PM CDT Narrative [facility] - 01/29/2017 1:55 PM CDT ? [...] - MICROBIOLOGY O RDERABLES Performing Organization Address [facility] Co de Phone Number [facility] [address] [place] [address] * EKG 12-LEAD (01/29/2017 12:20 PM CDT) Only the most recent of2 resultswithin the time period is included. [facility] [address] Ventricular Rate 100 BPM [facility] MUSE Atrial Rate 100 BPM [facility] P-R Interval 84 ms [facility] QRS Duration ms 102 ms [facility] Q-T Interval ms 366 ms [facility] QTC Calculation (Bezet) 472 ms [facility] Calculated P [place] 26 degrees [facility] MUSE Calculated R [place] 48 degrees [facility] MUSE Calculated T [place] 33 degrees [facility] Interpretation EKG SINUS RHYTHM WITH SHORT NM NONSPECIFIC ST ABNORMALITY ABNORMAL ECG Confirmed by MD Lisandra, Toi ([id number]) on 01/30/2017 7:55:22 AM [facility] 01/29/2017 12:2 0 PM CDT 01/30/2017 7:55 AM CDT Clinton Dorman DO ECG ORDERABLES Performing Organization Address [facility] de Phone Number [facility] * (ABNORMAL) COMPREHENSIVE METABOLIC PANEL (01/29/2017 12:14 PM CDT) Only the most recent of6 resultswithin the time period is included. [facility] [address] Glucose 97 74 - 106 mg/dL 01/29/2017 12:44 PM CDT [facility] Sodium 137 136 - 145 mmol/L 01/29/2017 12:44 PM CDT [facility] Potassium 3.6 3.5 - 5.1 mmol/L 01/29/2017 12:44 PM CDT [facility] Chloride 108(H) 98 - 107 mmol/L 01/29/2017 12:44 PM CDT [facility] CO2 18(L) 22 - 31 mmol/L 01/29/2017 12:44 PM CDT [facility] Calcium 8.7 8.5 - 10.1 mg/dL 01/29/2017 12:44 PM CDT [facility] Anion Gap 11 8 - 16 mmol/L 01/29/2017 12:44 PM CDT [facility] BUN 13 7 - 21 mg/dL 01/29/2017 12:44 PM CDT [facility] Creatinine 0.93 0.50 - 1.30 mg/dL 01/29/2017 12:44 PM CDT [facility] Alkaline Phosphatase 70 38 - 126 U/L 01/29/2017 12:44 PM CDT [facility] ALT 21 13 - 61 U/L 01/29/2017 12:44 PM CDT [facility] AST 17 5 - 40 U/L 01/29/2017 12:44 PM CDT [facility] Protein Total 7.6 6.4 - 8.2 gm/dL 01/29/2017 12:44 PM CDT [facility] Albumin 3.3(L) 3.4 - 5.0 gm/dL 01/29/2017 12:44 PM CDT [facility] Bilirubin Total 0.5 0.2 - 1.0 mg/dL 01/29/2017 12:44 PM CDT [facility] eGFR by MDRD >60 >60 mL/min/1.7 3m2 01/29/2017 12:44 PM CDT [facility] eGFR by MDRD >60 >60 mL/min/1.7 3m2 01/29/2017 12:44 PM CDT [facility] Blood BLOOD SPECIMEN / Unknown Venipuncture / Unknown 01/29/2017 12:14 PM CDT 01/29/2017 12:27 PM CDT Clinton Dorman DO LAB - CHEMISTRY MORGAN YEE [facility] Organization Address City/State/ZIP Co de Phone Number [facility] [address] [place] [address] * LACTIC ACID BLOOD (01/29/2017 12:14 PM CDT) Only the most recent of2 resultswithin the time period is included. Lactic Acid 1.7 0.7 - 2.1 mmol/L 01/29/2017 12:44 PM CDT [facility] Blood BLOOD SPECIMEN / Unknown Venipuncture / Unknown 01/29/2017 12:14 PM CDT 01/29/2017 12:27 PM CDT Clinton Dorman DO LAB - CHEMISTRY MORGAN YEE [facility] [address] [place] [address] * CT RENAL STONE PROTOCOL (NO IV AND NO ORAL CONTRAST) (05/17/2016 1:00 PM MILL CRANE OPERATOR) Anatomical Region Laterality Modality Abdomen, Pelvis Computed Tomogra phy 05/17/2016 1:14 PM MILL CRANE OPERATOR Impressions 05/17/2016 1:19 PM MILL CRANE OPERATOR 1. Multiple bilateral renal calculi seen within the kidneys without evidence of hydronephrosis or hydroureter. The largest calculus on the right measures approximately 4 mm and the largest on the left approximately 5 mm. Narrative 05/17/2016 1:[address] abdomen and pelvis without contrast Technique: [...] mm. Eleno Mcclure DO CT ORDERABLES * (ABNORMAL) URINALYSIS ROUTINE W/REFLEX TO CULTURE (05/17/2016 12:49 PM MILL CRANE OPERATOR) Only the most recent of5 resultswithin the time period is included. Color UA Yellow Straw, Yellow, Dark Yellow 05/17/2016 1:08 PM MILL CRANE OPERATOR [facility] Clarity UA Clear 05/17/2016 1:08 PM MILL CRANE OPERATOR [facility] Specific Parker UA 1.020 1.005 - 1.030 05/17/2016 1:08 PM MILL CRANE OPERATOR [facility] pH UA 6.5 5.0 - 8.0 pH 05/17/2016 1:08 PM [facility] Protein UA Negative Negative 05/17/2016 1:08 PM MILL CRANE OPERATOR [facility] Blood UA Negative Negative 05/17/2016 1:08 PM [facility] Leukocyte UA 2+(A) Negative 05/17/2016 1:08 PM [facility] Nitrite UA Negative Negative 05/17/2016 1:08 PM MILL CRANE OPERATOR [facility] Glucose UA Negative Negative 05/17/2016 1:08 PM [facility] Ketone UA Negative Negative 05/17/2016 1:08 PM [facility] Bilirubin UA Negative Negative 05/17/2016 1:08 PM [facility] Urobilinogen UA 0.2 0.1 - 1.0 EU/dL 05/17/2016 1:08 PM [facility] WBC UA Auto 5-10(A) 0-2, 2-5 # /hpf 05/17/2016 1:08 PM [facility] RBC UA Auto 2-5 0-2, 2-5 # /hpf 05/17/2016 1:08 PM [facility] Epithelial Cell UA Auto 5-10(A) 0-2, 2-5 # /hpf 05/17/2016 1:08 PM [facility] Bacteria UA Auto 1+(A) None seen 05/17/19 17 1:08 PM [facility] Reflex Status Culture to follow 05/17/2016 1:08 PM [facility] Urine URINE SPECIMEN OBTAINED BY CLEAN CATCH PROCEDURE / Unknown Collection / Unknown 05/17/2016 12:49 PM MILL CRANE OPERATOR 05/17/2016 12:56 PM MILL CRANE OPERATOR Eleno Mcclure DO LAB - URINALYSIS ORD ERABLES [facility] [address] [place] [address] * CULTURE URINE (05/17/2016 12:49 PM MILL CRANE OPERATOR) Only the most recent of5 resultswithin the time period is included. Culture 10,000-50,000 CFU/mL urogenital adelso CARLOS EDUARDO 05/18/2016 3:24 PM MILL CRANE OPERATOR [facility] Urine URINE SPECIMEN OBTAINED BY CLEAN CATCH PROCEDURE / Unknown Collection / Unknown 05/17/2016 12:49 PM MILL CRANE OPERATOR 05/17/2016 12:56 PM MILL CRANE OPERATOR Eleno Mcclure DO LAB - MICROBIOLOGY O ASHLEIGH Performing Organization Address City/[facility]/ZIP Co de Phone Number [facility] [address] [place] [phone] * HELICOBACTER PYLORI UREASE (STL) (04/06/2016 9:51 AM MILL CRANE OPERATOR) Helicobacter pylori Urease Initial Negative Negative 04/07/2016 11:49 AM MILL CRANE OPERATOR [facility] Helicobacter pylori Urease Final Negative Negative 04/07/2016 11:49 AM MILL CRANE OPERATOR [facility] Microbiology GASTRIC CONTENTS SPECIMEN / Unknown 04/06/2016 9:51 AM MILL CRANE OPERATOR 04/06/2016 12:31 PM MILL CRANE OPERATOR Armando Corona MD LAB - MICROBIOLOGY Rafa SOTELO Performing Organization Address [facility] Co de Phone Number [facility] [address] [place] [address] * EGD (04/06/2016 9:19 AM MILL CRANE OPERATOR) Report Endoscopy POC __ _ Patient Name: Madalyn Walton ? Procedure Date: 04/06/2016 9:19 AM ? Date of : 1975 ?Admit Type: Outpatient Age: 40 ? Gender: Female Attending MD: Armando Corona , ? __ _ Procedure: ? Upper GI endoscopy Indications: ? Abdominal pain Providers: ? Armando Corona (Doctor), Cheli Vazquez RN Patient Profile: ?? 40F pmh depression, RA, diverticulitis early 2016 prior ? gastric ulcer here to evaluate abd pain Referring MD: ?Feliciano Dash Md (Referring MD) Medicines: ? Monitored Anesthesia Care Complications: ? No immediate complications. __ _ Procedure: ? After obtaining informed consent, the endoscope was passed ? under direct vision. Throughout the procedure, the ? patient's blood pressure, pulse, and oxygen saturations ? were monitored continuously. The Endoscope was introduced ? through the mouth, and advanced to the second part of ? duodenum. The upper GI endoscopy was accomplished without ? difficulty. The patient tolerated the procedure well. ? Impression: ?- LA Grade A esophagitis. ? - Gastritis. Biopsied. ? - Normal examined duodenum. Findings: ? LA Grade A (one or more mucosal breaks less than 5 mm, not extending ? between tops of 2 mucosal folds) esophagitis was found at the ? gastroesophageal junction. ? Patchy moderate inflammation characterized by erythema and friability ? was found on the greater curvature of the stomach. Biopsies were taken ? with a cold forceps for Helicobacter pylori testing using CLOtest. ? The examined duodenum was normal. __ _ Recommendation: ?- Await pathology results. ? - Protonix to 40 BID x 4 wks, then back to QD ? - Incr dosing of linzess next if no better by then ? - followup with me in the office ? Procedure Code(s): ? --- Professional --- ? 77725, Esophagogastroduode noscopy, flexible, transoral; with biopsy, ? single or multiple ? --- Technical --- ? 43605, Esophagogastroduode noscopy, flexible, transoral; with biopsy, ? single or multiple Diagnosis Code(s): ? --- Professional --- ? K20.9, Esophagitis, unspecified ? K29.70, Gastritis, unspecified, without bleeding ? R10.9, Unspecified abdominal pain ? --- Technical --- ? K20.9, Esophagitis, unspecified ? K29.70, Gastritis, unspecified, without bleeding ? R10.9, Unspecified abdominal pain CPT copyright 2015 [employer]. All rights reserved. The codes documented in this report are preliminary and upon nursery school teacher review may be revised to meet current compliance requirements. Armando Corona, 04/06/2016 9:52:47 AM This report has been signed electronically. Number of Addenda: 0 Note Initiated On: 04/06/2016 9:19 AM [facility] 04/06/2016 9:19 AM MILL CRANE OPERATOR Narrative Procedure Note Armando Corona MD - 04/06/2016 9:53 AM CST EGD Grade A esophagitis Mild gastritis s/p bx Nl duodenum Armando Corona MD GI PROCEDURE ORDERAB LES [facility] * ENDOSCOPY, COLON, DIAGNOSTIC (12/15/2015 12:53 PM CDT) Armando Corona MD GI PROCEDURE ORDERAB LES * GROSS + MICRO EXAM (STL) (12/15/2015 12:34 PM CDT) Only the most recent of4 resultswithin the time period is included. Case Report Surgical Pathology Report ? Case: [id number] ? Authorizing Provider: ??Armando Corona MD ?Collected: ? 12/15/2015 12:34 PM ? Ordering Location: ? [facility] ?Received: ?12/16/2015 09:42 AM ? Pathologist: ? Doris Morrison MD ? Specimen: ?Colon Biopsy, random colon biopsy ? 12/17/2015 10:19 AM [facility] Final Diagnosis 1. ??Large intestine, random colon, endoscopic biopsy: -- ??No histopathologic abnormality OBEY/tao 12/17/2015 10:19 AM [facility] Gross Description Received in formalin in a container labeled Madalyn Walton, random colon biopsy. ??The container holds multiple pink-baird tissue fragments measuring from 0.2 cm up to 0.4 cm. The specimen is entirely submitted in a cassette labeled A1. LIYA/eloy 12/17/2015 10:19 AM [facility] Microscopic Description Histologic sections show fragments of large intestinal mucosa without specific histopathologic abnormality. ??There is no evidence of lymphocytic or collagenous colitis. ??There is no evidence of dysplasia or malignancy. ?? OBEY/tao 12/17/2015 10:19 AM CDT [facility] Pathology/Cytolo gy COLONIC BIOPSY SPECIMEN / Unknown 12/15/2015 12:34 PM CDT 12/16/2015 9:42 AM CDT Armando Corona MD LAB - PATHOLOGY/CYTO LOGY ORDERABLES [facility] [address], [place] [id number] * ENDOSCOPY, COLON, SCREENING (12/15/2015 12:23 PM CDT) Report Endoscopy POC _ Patient Name: Madalyn Walton ? Procedure Date: 12/15/2015 12:23 PM ? Date of : 1975 ?Admit Type: Outpatient Age: 40 ? Gender: Female Attending MD: Armando Corona , ? _ Procedure: ? Colonoscopy Indications: ? Lower abdominal pain Providers: ? Armando Corona (Doctor), Enma Wong, ? Welfare Supervisor Patient Profile: ?? 40F pmh 40F pmh depression, arthritis, diverticulitis ? early 2015, prior gastric ulcer healed 07/2015, ? diverticulitis early 2015 here to evaluate continued lower ? abd [...] Procedure Code(s): ? --- Professional --- ? 87192, Colonoscopy, flexible; with biopsy, single or multiple ? --- Technical --- ? 43679, Colonoscopy, flexible; with biopsy, single or multiple Diagnosis Code(s): ? --- Professional --- ? R10.30, Lower abdominal pain, unspecified ? --- Technical --- ? R10.30, Lower abdominal pain, unspecified CPT copyright 2015 [employer]. All rights reserved. The codes documented in this report are preliminary and upon nursery school teacher review may be revised to meet current compliance requirements. Armando Corona, 12/15/2015 12:47:51 PM This report has been signed electronically. Number of Addenda: 0 Note Initiated On: 12/15/2015 12:23 PM [facility] 12/15/2015 12:2 3 PM CDT Narrative Transcriptions Armando Corona MD - 12/15/2015 12:53 PM CDT Neg colon s/p random bx Armando Corona MD GI PROCEDURE ORDERAB LES Performing Organization Address City/[facility]/ZIP Co de Phone Number [facility] * (ABNORMAL) LIPASE BLOOD (08/27/2015 6:11 PM CDT) Only the most recent of3 resultswithin the time period is included. Lipase 264(H) 10 - 220 U/L 08/27/2015 7:11 PM CDT [facility] Blood BLOOD SPECIMEN / Unknown Venipuncture / Unknown 08/27/2015 6:11 PM CDT 08/27/2015 6:14 PM CDT Colton Caballero MD LAB - CHEMISTRY ORDERABLES Performing Organization Address City/[facility]/ZIP Co de Phone Number [facility] [address] [place] [address] * (ABNORMAL) URINALYSIS MICROSCOPIC ONLY W/REFLEX CULTURE (08/12/2015 9:16 PM CDT) Only the most recent of2 resultswithin the time period is included. RBC UA 0-2 0-2, 2-5 # /hpf 08/12/2015 9:29 PM CDT [facility] WBC UA 2-5 0-2, 2-5 # /hpf 08/12/2015 9:29 PM CDT [facility] Bacteria UA 2+(A) None Seen 08/12/2015 9:29 PM CDT [facility] Epithelial Cell UA 10-20(A) 0-2, 2-5 # /hpf 08/12/2015 9:29 PM CDT [facility] Calcium Oxalate Crystals 1+(A) None Seen 08/12/2015 9:29 PM CDT [facility] Urine URINE SPECIMEN OBTAINED BY CLEAN CATCH PROCEDURE / Unknown 08/12/2015 9:16 PM CDT 08/12/2015 9:19 PM CDT Narrative [facility] - 08/12/2015 9:29 PM CDT *Microscopic performed on un-spun urine; <3mL urine submitted Eleno Mcclure DO LAB - URINALYSIS ORD ERABLES Performing Organization Address [facility] Co de Phone Number [facility] [address] [place] [phone] * PT-INR (08/12/2015 7:29 PM CDT) PT 9.9 9.5 - 11.6 sec 08/12/2015 7:58 PM CDT [facility] INR 1.0 0.9 - 1.1 08/12/2015 7:58 PM CDT [facility] Blood BLOOD SPECIMEN / Unknown Venipuncture / Unknown 08/12/2015 7:29 PM CDT 08/12/2015 7:44 PM CDT Narrative [facility] - 08/12/2015 7:58 PM CDT Conventional Warfarin Anticoagulant Therapy: INR Reference Range: ??2.0-3.0 Intensive Warfarin Anticoagulant Therapy: INR Reference Range: ? 2.5-3.5 Eleno Mcclure DO LAB - COAGULATION OR DERABLES Performing Organization Address [facility] Co de Phone Number [facility] [address] [place] [phone] * HEMOGLOBIN (08/04/2015 11:16 AM CDT) Pathologist [facility] Hemoglobin 12.6 12.0 - 15.6 gm/dL 08/04/2015 11:28 AM CDT [facility] Blood BLOOD SPECIMEN / Unknown Lab Venipuncture / Unknown 08/04/2015 11:16 AM CDT 08/04/2015 11:22 AM CDT Armando Corona MD LAB - HEMATOLOGY ORD ERABLES [facility] [address], [place] [id number] * ENDOSCOPY, COLON, DIAGNOSTIC (08/04/2015 9:04 AM CDT) [facility] [address] Report Endoscopy POC _ Patient Name: Madalyn Walton ? Procedure Date: 08/04/2015 9:04 AM ? Date of : 1975 ?Admit Type: Inpatient Age: 40 ? Gender: Female Attending MD: Armando Corona, ? _ Procedure: ? Colonoscopy Indications: ? Periumbilical abdominal pain, Melena Providers: ? Armando Corona (Doctor), Rufina Khanna RN, Myranda Keys Patient Profile: ?? 40F pmh depression, arthritis, diverticulitis 3 months ? prior here to evaluate hx of melena and abd pain Referring MD: ?Feliciano Dash Md (Referring MD) Medicines: ? Monitored Anesthesia Care Complications: ? No immediate complications. _ Procedure: ? After I obtained informed consent, the scope was passed ? under direct vision. Throughout the procedure, the ? patient's blood pressure, pulse, and oxygen saturations ? were monitored continuously. The Colonoscope was ? introduced through the anus and advanced to 5 cm into the ? ileum. The colonoscopy was performed without difficulty. ? The patient tolerated the procedure well. The quality of ? the bowel preparation was fair. ? Impression: ?- The examined portion of the ileum was normal. ? - Diverticulosis in the sigmoid colon. ? - One 7 mm polyp in the descending colon. Resected and ? retrieved. ? - The examination was otherwise normal on direct and ? retroflexion views. Findings: ? The perianal and digital rectal examinations were normal. ? The terminal ileum appeared normal. ? A few small-mouthed diverticula were found in the sigmoid colon. ? A 7 mm polyp was found in the descending colon. The polyp was sessile. ? The polyp was removed with a cold snare. Resection and retrieval were ? complete. ? The exam was otherwise without abnormality on direct and retroflexion ? views. _ Recommendation: ?- Await pathology results. ? - [facility]. ? - capsule endoscopy today ? Procedure Code(s): ? --- Professional --- ? 37260, Colonoscopy, flexible; with removal of tumor(s), polyp(s), or ? other lesion(s) by snare technique ? --- Technical --- ? 73475, Colonoscopy, flexible; with removal of tumor(s), polyp(s), or ? other lesion(s) by snare technique Diagnosis Code(s): ? --- Professional --- ? D12.4, Benign neoplasm of descending colon ? R10.33, Periumbilical pain ? K92.1, Melena (includes Hematochezia) ? K57.30, Diverticulosis of large intestine without perforation or abscess ? without bleeding ? --- Technical --- ? D12.4, Benign neoplasm of descending colon ? R10.33, Periumbilical pain ? K92.1, Melena (includes Hematochezia) ? K57.30, Diverticulosis of large intestine without perforation or abscess ? without bleeding CPT copyright 2015 [employer]. All rights reserved. The codes documented in this report are preliminary and upon nursery school teacher review may be revised to meet current compliance requirements. Armando Corona, 08/04/2015 9:38:09 AM This report has been signed electronically. Number of Addenda: 0 Note Initiated On: 08/04/2015 9:04 AM [facility] 08/04/2015 9:04 AM CDT Narrative Transcriptions Armando Corona MD - 08/04/2015 9:39 AM CDT Colonoscopy * fair prep *few diverticuli * no old or fresh blood * normal terminal ileum rec PRN hyoscyamine Capsule endoscopy today Armando Corona MD GI PROCEDURE ORDERAB LES [facility] * EGD (08/03/2015 7:24 AM CDT) Report Endoscopy POC _ Patient Name: Madalyn Walton ? Procedure Date: 08/03/2015 7:24 AM ? Date of : 1975 ?Admit Type: Inpatient Age: 40 ? Gender: Female Attending MD: Armando Corona, ? _ Procedure: ? Upper GI endoscopy Indications: ? Epigastric abdominal pain, Periumbilical abdominal pain, ? Melena Providers: ? Armando Corona (Doctor), Roxi Bennett, ANTHONY, Sona Dove, ? Welfare Supervisor Patient Profile: ?? 40F pmh depression, arthritis, diverticulitis 3 months ? prior, prior gastric ulcers 06/2015, here to evaluate ? worsening abd pain and melena Referring MD: ?Feliciano Dash Md (Referring MD) Medicines: ? Monitored Anesthesia Care Complications: ? No immediate complications. _ Procedure: ? After obtaining informed consent, the endoscope was passed ? under direct vision. Throughout the procedure, the ? patient's blood pressure, pulse, and oxygen saturations ? were monitored continuously. The Endoscope was introduced ? through the mouth, and advanced to the proximal jejunum. ? The upper GI endoscopy was accomplished without ? difficulty. The patient tolerated the procedure fairly ? well. ? Impression: ?- Normal esophagus. ? - Gastritis. Biopsied. ? - Normal examined duodenum. ? - Normal examined jejunum. Findings: ? The examined esophagus was normal. ? Patchy mild inflammation characterized by erythema was found on the ? greater curvature of the stomach. Biopsies were taken with a cold ? forceps for Helicobacter pylori testing. ? The examined duodenum was normal. ? The examined jejunum was normal. _ Recommendation: ?- Await pathology results. ? - PPI to QD ? - Colonoscopy tomorrow ? Procedure Code(s): ? --- Professional --- ? 33580, Esophagogastroduod enoscopy, flexible, transoral; with biopsy, ? single or multiple ? --- Technical --- ? 16581, Esophagogastroduod enoscopy, flexible, transoral; with biopsy, ? single or multiple Diagnosis Code(s): ? --- Professional --- ? K29.70, Gastritis, unspecified, without bleeding ? R10.13, Epigastric pain ? R10.33, Periumbilical pain ? K92.1, Melena (includes Hematochezia) ? --- Technical --- ? K29.70, Gastritis, unspecified, without bleeding ? R10.13, Epigastric pain ? R10.33, Periumbilical pain ? K92.1, Melena (includes Hematochezia) CPT copyright 2015 [employer]. All rights reserved. The codes documented in this report are preliminary and upon nursery school teacher review may be revised to meet current compliance requirements. Armando Corona, 08/03/2015 8:00:13 AM This report has been signed electronically. Number of Addenda: 0 Note Initiated On: 08/03/2015 7:24 AM [facility] 08/03/2015 7:24 AM CDT Narrative Transcriptions Armando Corona MD - 08/03/2015 8:00 AM CDT EGD - mild gastritis bx'd, other normal to proximal jejunum Rec Colonoscopy tomorrow Follow cb[facility] Armando Cornoa MD GI PROCEDURE ORDERAB LES Performing Organization Address City/[facility] Co de Phone Number [facility] * CULTURE STOOL+ E COLI SHIGA-LIKE TOXIN (08/02/2015 4:51 PM CDT) Only the most recent of2 resultswithin the time period is included. Culture No growth Salmonella, Shigella, Campylobacter , E. coli 0157:h7 or Yersinia CARLOS EDUARDO 08/04/2015 6:27 AM CDT [facility] Culture Negative E. coli Shiga-like toxin (NM) CARLOS EDUARDO 08/04/2015 6:27 AM CDT [facility] Stool STOOL SPECIMEN / Unknown Collection / Unknown 08/02/2015 4:51 PM CDT 08/02/2015 4:56 PM CDT Chucho Hinton MD LAB - MICROBIOLOGY O RDERABLES Performing Organization Address City/[facility]/ZIP Co de Phone Number [facility] [address] [place] [address], [place] [facility] [phone] * HGB HCT PANEL (08/02/2015 10:02 AM CDT) Hemoglobin 12.3 12.0 - 15.6 gm/dL 08/02/2015 10:37 AM CDT [facility] Hematocrit 37.6 35.9 - 45.5 % 08/02/2015 10:37 AM CDT [facility] Blood BLOOD SPECIMEN / Unknown Lab Venipuncture / Unknown 08/02/2015 10:02 AM CDT 08/02/2015 10:13 AM CDT Akira Romero MD LAB - HEMATOLOGY ORD PRIMITIVO Performing Organization Address [facility]/ZIP Co de Phone Number [facility] [address] [place] [address] * ALCOHOL ETHYL BLOOD (08/02/2015 10:02 AM CDT) Ethanol <10 <10 mg/dL 08/02/2015 10:49 AM CDT [facility] Ethanol Calculated <0.100 gm/dL 08/02/2015 10:49 AM CDT [facility] Blood BLOOD SPECIMEN / Unknown Lab Venipuncture / Unknown 08/02/2015 10:02 AM CDT 08/02/2015 10:13 AM CDT Narrative [facility] - 08/02/2015 10:49 AM CDT Non Legal Serum Alcohol Chucho Hinton MD LAB - CHEMISTRY MORGAN YEE Performing Organization Address [facility] Co de Phone Number [facility] [address] [place] [address] * (ABNORMAL) LIPID PROFILE (08/02/2015 10:02 AM CDT) Cholesterol 184 <200 mg/dL 08/02/2015 10:49 AM CDT [facility] Triglycerides 156(H) <150 mg/dL 08/02/2015 10:49 AM CDT [facility] HDL Cholesterol 43 >40 mg/dL 08/02/2015 10:49 AM CDT [facility] LDL Calculated 110 <130 mg/dL 08/02/2015 10:49 AM CDT [facility] VLDL Calculated 31(H) <=30 mg/dL 08/02/2015 10:49 AM CDT [facility] Chol HDL Ratio 4.3 <4.5 08/02/2015 10:49 AM CDT [facility] LDL/HDL Ratio 2.6 <5.0 08/02/2015 10:49 AM CDT [facility] Blood BLOOD SPECIMEN / Unknown Lab Venipuncture / Unknown 08/02/2015 10:02 AM CDT 08/02/2015 10:13 AM CDT Chucho Hinton MD LAB - CHEMISTRY MORGAN YEE [facility] Organization Address City/State/ZIP Co de Phone Number [facility] [address] [place] [address] * CT ABDOMEN AND PELVIS WITH IV CONTRAST (08/01/2015 8:36 PM CDT) Anatomical Region Laterality Modality Abdomen, Pelvis Computed Tomogra phy 08/01/2015 9:01 PM CDT Impressions 08/01/2015 9:04 PM CDT No acute intra-abdominal pathology. Narrative 08/01/2015 9:[address] OF THE ABDOMEN AND PELVIS WITH INTRAVENOUS CONTRAST Contrast: 100 cc of Omnipaque 350. HISTORY: Periumbilical pain. COMPARISON: None available. FINDINGS: LOWER THORAX: Normal. HEPATOBILIARY: There are no focal hepatic lesions. Gallbladder is unremarkable. There is no biliary ductal dilatation. SPLEEN: No splenomegaly. ??Calcified granulomas are seen. PANCREAS: No focal masses or ductal dilatation. ADRENALS: No adrenal nodules. KIDNEYS/URETERS: There are bilateral nonobstructing renal calculi, measuring up to 6 mm at the upper pole of the right kidney. ??There is no hydronephrosis or solid renal mass. ??There are tiny cysts bilaterally. PELVIC ORGANS/BLADDER: Bladder and uterus are normal. GI TRACT: There is sigmoid diverticulosis without diverticulitis. Scattered diverticula are also seen involving the descending colon. Appendix is normal. ??Stomach and small bowel are normal. PERITONEUM / RETROPERITONEUM: No free air or fluid. LYMPH NODES: No lymphadenopathy. VESSELS: Unremarkable. BONES AND SOFT TISSUES: There is facet arthritis in the lower lumbar spine. ??Skeletal structures are otherwise normal. Procedure Note Pati Fernandez MD - 08/01/2015 CT OF THE ABDOMEN AND PELVIS WITH INTRAVENOUS CONTRAST Contrast: 100 cc of Omnipaque 350. HISTORY: Periumbilical pain. COMPARISON: None available. FINDINGS: LOWER THORAX: Normal. HEPATOBILIARY: There are no focal hepatic lesions. Gallbladder is unremarkable. There is no biliary ductal dilatation. SPLEEN: No splenomegaly. Calcified granulomas are seen. PANCREAS: No focal masses or ductal dilatation. ADRENALS: No adrenal nodules. KIDNEYS/URETERS: There are bilateral nonobstructing renal calculi, measuring up to 6 mm at the upper pole of the right kidney. There is no hydronephrosis or solid renal mass. There are tiny cysts bilaterally. PELVIC ORGANS/BLADDER: Bladder and uterus are normal. GI TRACT: There is sigmoid diverticulosis without diverticulitis. Scattered diverticula are also seen involving the descending colon. Appendix is normal. Stomach and small bowel are normal. PERITONEUM / RETROPERITONEUM: No free air or fluid. LYMPH NODES: No lymphadenopathy. VESSELS: Unremarkable. BONES AND SOFT TISSUES: There is facet arthritis in the lower lumbar spine. Skeletal structures are otherwise normal. IMPRESSION No acute intra-abdominal pathology. Hari Niño MD CT ORDERABLES * TYPE + SCREEN PANEL (08/01/2015 7:19 PM CDT) ABO A 08/01/2015 8:23 PM CDT [facility] Rh Type Positive 08/01/2015 8:23 PM CDT [facility] Comment:History check perfor med. Retype required. Antibody Screen Negative 08/01/2015 8:23 PM CDT [facility] Miscellaneous samples (specimen) BLOOD SPECIMEN / Unknown Venipuncture / Unknown 08/01/2015 7:19 PM CDT 08/01/2015 7:22 PM CDT Hari Niño MD LAB - BLOOD BANK ORD ERABLES [facility] [address] * LAB RESULTS ORDER (07/19/2015 5:06 AM CDT) Narrative 07/19/2015 5:06 AM CDT Ordered by an unspecified provider. Scanned Document LAB - THERAPEUTIC DR AMEZCUA MONITORING ORDERABLES * EGD (07/15/2015 2:08 PM CDT) Report Endoscopy POC _ Patient Name: Madalyn Walton ? Procedure Date: 07/15/2015 2:08 PM ? Date of : 1975 ?Admit Type: Inpatient Age: 40 ? Gender: Female Attending MD: Armando Corona, ? _ Procedure: ? Upper GI endoscopy Indications: ? Epigastric abdominal pain Providers: ? Armando Corona (Doctor), Felipe Gasca RN, Daren ? Jose, Welfare Supervisor Patient Profile: ?? 40F pmh depression, arthritis with recent diverticulitis 2 ? months prior here to evaluate epigastric pain (post ? prandial) in setting of NSAID use Referring MD: ?Feliciano Dash Md (Referring MD) Medicines: ? Monitored Anesthesia Care Complications: ? No immediate complications. _ Procedure: ? After obtaining informed consent, the endoscope was passed ? under direct vision. Throughout the procedure, the ? patient's blood pressure, pulse, and oxygen saturations ? were monitored continuously. The Endoscope was introduced ? through the mouth, and advanced to the second part of ? duodenum. The upper GI endoscopy was accomplished without ? difficulty. The patient tolerated the procedure well. ? Impression: ?- Normal esophagus. ? - Non-bleeding gastric ulcers. Biopsied. ? - Normal examined duodenum. Findings: ? The examined esophagus was normal. ? 3 non-bleeding linear gastric ulcers were found in the gastric antrum. ? The largest lesion was 1 mm in largest dimension. Biopsies were taken ? with a cold forceps for Helicobacter pylori testing. ? The examined duodenum was normal. _ Recommendation: ?- Await pathology results. ? - PPI to BID, correct timing advised ? - Carafate ? - Avoid NSAIDs ? - EGD in 8 wks to evaluate healing ? Procedure Code(s): ? --- Professional --- ? 10444, Esophagogastroduod enoscopy, flexible, transoral; with biopsy, ? single or multiple ? --- Technical --- ? 27255, Esophagogastroduod enoscopy, flexible, transoral; with biopsy, ? single or multiple Diagnosis Code(s): ? --- Professional --- ? K25.9, Gastric ulcer, unspecified as acute or chronic, without ? hemorrhage or perforation ? R10.13, Epigastric pain ? --- Technical --- ? K25.9, Gastric ulcer, unspecified as acute or chronic, without ? hemorrhage or perforation ? R10.13, Epigastric pain CPT copyright 2015 [employer]. All rights reserved. The codes documented in this report are preliminary and upon nursery school teacher review may be revised to meet current compliance requirements. Armando Corona, 07/15/2015 2:36:07 PM This report has been signed electronically. Number of Addenda: 0 Note Initiated On: 07/15/2015 2:08 PM [facility] 07/15/2015 2:08 PM CDT Narrative Transcriptions Armando Corona MD - 07/15/2015 2:36 PM CDT EGD : Nl esophagus/duodenum Stomach: multiple linear, superficial gastric ulcers Rec - Await pathology results. ?? - PPI to BID, correct timing advised - Carafate - Avoid NSAIDs advised - EGD along with colonscopy in 8 wks to evaluate healing of gastric ulcers, and for diverticulitis and appropriate f/u thereafter; my office shallarrange - ok to go home if tolerates diet ?? Armando Corona MD GI PROCEDURE ORDERAB LES Performing Organization Address [facility]/ZIP Co de Phone Number [facility] * MPO/NM 3 AUTOANTIBODIES PANEL (07/15/2015 5:51 AM CDT) Anti-myeloperox idase (MPO) Antibody <9.0 0.0 - 9.0 U/mL 07/18/2015 1:17 PM CDT [facility] ([facility]) Anti-proteinase 3 (NM-3) Abs <3.5 0.0 - 3.5 U/mL 07/18/2015 1:17 PM CDT [facility] ([facility]) Blood specimen (specimen) BLOOD SPECIMEN / Unknown Lab Venipuncture / Unknown 07/15/2015 5:51 AM CDT 07/15/2015 6:11 AM CDT Narrative [facility] ([facility]) - 07/18/2015 1:17 PM CDT Performed at: ??01 - [facility] [address] ??[id number] Records Clerk: Curtis Sanchez MD, Phone: ??[phone] Chucho Hinton MD LAB - CHEMISTRY MORGAN YEE Performing Organization Address City/[facility]/ZIP Co de Phone Number [facility] ([facility]) * (ABNORMAL) C-REACTIVE PROTEIN (07/15/2015 5:50 AM CDT) Pathologist [facility] C-Reactive Protein 0.30(H) <0.30 mg/dL 07/15/2015 6:48 AM CDT [facility] Blood BLOOD SPECIMEN / Unknown Lab Venipuncture / Unknown 07/15/2015 5:50 AM CDT 07/15/2015 6:11 AM CDT Chucho Hinton MD LAB - CHEMISTRY ORDE RABLES Performing Organization Address [facility] Co de Phone Number [facility] [address] [place], [place] [phone] * SED RATE WESTERGREN (07/15/2015 5:50 AM CDT) [facility] [address] Erythrocyte Sedimentation Rate Westergren 7 0 - 20 mm/hr 07/15/2015 6:36 AM CDT [facility] Blood BLOOD SPECIMEN / Unknown Lab Venipuncture / Unknown 07/15/2015 5:50 AM CDT 07/15/2015 6:11 AM CDT Chucho Hinton MD LAB - HEMATOLOGY ORD ERABLES Performing Organization Address [facility] Co de Phone Number [facility] [address] [place] [phone] * (ABNORMAL) LACTOFERRIN FECAL QUALITATIVE (07/14/2015 1:44 PM CDT) [facility] [address] Lactoferrin Fecal Positive( A) Negative 07/14/2015 9:15 PM CDT [facility] Stool STOOL SPECIMEN / Unknown Collection / Unknown 07/14/2015 1:44 PM CDT 07/14/2015 3:56 PM CDT Narrative [facility] - 07/14/2015 9:15 PM CDT Fecal lactoferrin is a marker for fecal leukocytes. CAUTION: A negative result does not exclude the presence of intestinal inflammation. This test is not recommended for children who are breast-fed; the presence of lactoferrin in breast milk can give false-positive results. Chucho Hinton MD LAB - BODY FLUID ORD ERABLES Performing Organization Address City/[facility]/ZIP Co de Phone Number [facility] [address] [place] [address], [facility] [phone] * CLOSTRIDIUM DIFFICILE GDH AG + TOXIN A+B (07/14/2015 1:43 PM CDT) [facility] Antigen Negative Negative, Invalid 07/15/2015 9:08 AM CDT [facility] C difficile Toxin A + B Negative Negative, Invalid 07/15/2015 9:08 AM CDT [facility] Interpretation C difficile Negative for toxigenic C. difficile Negative for toxigenic C. difficile 07/15/2015 9:08 AM CDT [facility] Stool STOOL SPECIMEN / Unknown Collection / Unknown 07/14/2015 1:43 PM CDT 07/14/2015 3:55 PM CDT Chucho Hinton MD LAB - MICROBIOLOGY O RDERABLES Performing Organization Address [facility] Co de Phone Number [facility] [address] [place] [address], [facility] [phone] * XR HANDS BILATERAL 2 VIEWS (06/29/2015 1:18 PM MILL CRANE OPERATOR) Anatomical Region Laterality Modality Wrist / Hand, Upper Extremity Ra diographic Imaging 06/29/2015 7:37 PM MILL CRANE OPERATOR Impressions 06/29/2015 7:38 PM MILL CRANE OPERATOR Normal radiographs of both hands. Narrative 06/29/2015 7:38 PM MILL CRANE OPERATOR BILATERAL HANDS, TWO VIEWS OF EACH HISTORY: Pain. COMPARISON: None. FINDINGS: Alignment of both hands is normal. ??The joint spaces are normal bilaterally. ??There is no fracture. Procedure Note Pati eFrnandez MD - 06/29/2015 BILATERAL HANDS, TWO VIEWS OF EACH HISTORY: Pain. COMPARISON: None. FINDINGS: Alignment of both hands is normal. The joint spaces are normal bilaterally. There is no fracture. IMPRESSION Normal radiographs of both hands. [facility] TRINO Olivarez ORDERABLES Care Teams Back Maker Relationship Specialty Start Date End Date Feliciano Dash MD [address] [facility] [address] [place] [address] PCP - General 07/14/21 Jonathan Hartman, RN Handle Sewer 07/14/15
--- OUTSIDE RECORDS SUMMARY | 2024-04-29 19:19 | XMS_ITS | Encounter Summary ---
Author Organization [facility] Address [address] [place] [address] Care Team Providers Care Ict Support Engineer Name Role Phone Minnie Jonathan Delaney RN Unavailable [phone] Feliciano Dash MD Primary Care Provider [phone] Reason for Visit * Auth/Cert Specialty Diagnoses / Procedures Referred By Kaylynn phillips Referred To Contact Diagnoses Epigastric pain Epigastric pain Procedures ESOPHAGOGASTRODUODENOSCOPY (EGD) Referral ID Status Reason Start Date Expiration Date Visits Re quested Visits Authorized [id number] 1 1 Encounter Details Date Type Department Care Team (Latest Contact Info) Description 04/06/2016 7:25 AM ORACLE HYPERION CONSULTANT - 04/06/2016 11:00 AM [facility] Hospital Encounter [facility] - Endoscopy Services [address] [place] [phone] Armando Corona MD [address] [place] [phone] Surgery General Discharge Disposition: Home or [...] Sign Reading Time Taken Comments Blood Pressure 118/84 04/06/2016 10:45 AM ORACLE HYPERION CONSULTANT Pulse 100 04/06/2016 10:50 AM ORACLE HYPERION CONSULTANT Temperature 36.1 ??C (97 ??F) 04/06/2016 10:30 AM ORACLE HYPERION CONSULTANT Respiratory Rate 25 04/06/2016 10:50 AM ORACLE HYPERION CONSULTANT Oxygen Saturation 100% 04/06/2016 10:50 AM ORACLE HYPERION CONSULTANT Inhaled Oxygen Concentration - - Weight 81.6 kg (180 lb) 04/06/2016 9:12 AM ORACLE HYPERION CONSULTANT Height 167.6 cm (5' 6 ) 04/06/2016 9:12 AM ORACLE HYPERION CONSULTANT Body Mass Index 29.05 04/06/2016 9:12 AM ORACLE HYPERION CONSULTANT documented in this encounter Functional Status Functional [...] No 04/06/2016 documented as of this encounter Medications at [...] tablet Take 1 Tab by mouth every 6 hours as needed for Pain 20 Tab 04/06/2016 05/17/2016 hydroxychloroquine (PLAQUENIL) 200 MG tabletIndications:Rheum atoid arthritis [...] AND DINNER 180 Tab 1 09/30/2015 07/03/2016 sucralfate (CARAFATE) 1 GM/10ML suspension Take 10 mL by mouth 4 times daily - before meals & nightly 420 mL 1 07/16/2015 04/25/2016 documented as of this encounter Progress Notes * Armando Corona MD - 04/06/2016 11:00 AM CST Neg h pylori LE HYPERION CONSULTANT documented in this encounter H&P Notes * Armando Corona MD - 04/06/2016 9:40 AM CST PRE-PROCEDURE HISTORY & PHYSICAL NOTE (Presedation assessment per Anesthesia Team) 04/06/2016 9:40 AM Patient: Madalyn Walton, date of 1975 Procedure(s) planned: egd Indication(s): abd pain, prior ulcers History: Patient Active Problem List Diagnosis ??? Acute cystitis without hematuria ??? Migraine without status migrainosus, not intractable ??? RA (rheumatoid arthritis) ??? Diverticulitis of colon Past Medical History Diagnosis Date ??? Anxiety [...] ??? Colonoscopy with biopsy 12/15/2015 COLONOSCOPY BIOPSY Allergies Allergen Reactions ??? Ibuprofen Other Stomach ulcers Current Facility-Administered Medications Medication Dose Route Frequency Provider Last Rate Last Dose ??? 0.9% NaCl infusion Intravenous Continuous Armando Corona MD 20 mL/hr at 04/06/16 0918 Review of systems: Chest pain: No. Shortness of breath: No. Review of systems otherwise negative. Physical Exam: BP 134/91 Pulse 96 Temp 97.3 ??F Wt 180 lb BMI 29.05 kg/m2 GENERAL: The patient is alert, oriented and in no apparent distress. HEENT: Neck supple, posterior pharynx is clear. LUNGS: Lungs are clear to auscultation. CVS: Heart sounds are normal, no murmurs. ABDOMEN: Soft, no tenderness, masses or organomegaly. EXTREMITIES: Normal. NEURO: Non-focal. Pain assessment: abd Sedation Plan: Monitored Anesthesia Care (MAC) by [...] MEDICAL PROBLEMS AND . Armando Corona MD LE HYPERION CONSULTANT documented in this encounter Procedure Notes * Armando Corona MD - 04/06/2016 9:53 AM CSTAssociated Order(s): EGD EGD Grade A esophagitis Mild gastritis s/p bx Nl duodenum LE HYPERION CONSULTANT documented in this encounter Plan of Treatment Not on file documented as of this encounter Goals Goal Patient Goal Type Associated Problems Recent Progress Patient-Stated? Author Yearly PCP visit Lifestyle No Rukhsana Lazo MA documented as of this encounter Procedures Procedure Name Priority Date/Time Associated Diagnosis Comments HELICOBACTER PYLORI UREASE (STL) STAT 04/06/2016 9:51 AM ORACLE HYPERION CONSULTANT Epigastric pain ESOPHAGOGASTRODUODENOSCOPY ( EGD) BIOPSY 04/06/2016 9:30 AM ORACLE HYPERION CONSULTANT Epigastric pain ESOPHAGOGASTRODUODENOSCOPY ( EGD) DIAGNOSTIC 04/06/2016 9:30 AM ORACLE HYPERION CONSULTANT Epigastric pain EGD Routine 04/06/2016 9:19 AM ORACLE HYPERION CONSULTANT HCG URINE QUALITATIVE - POIN T OF CARE Routine 04/06/2016 8:50 AM ORACLE HYPERION CONSULTANT documented in this encounter Results * HELICOBACTER PYLORI UREASE (STL) (04/06/2016 9:51 AM ORACLE HYPERION CONSULTANT) Helicobacter pylori Urease Initial Negative Negative 04/07/2016 11:49 AM ORACLE HYPERION CONSULTANT [facility] Helicobacter pylori Urease Final Negative Negative 04/07/2016 11:49 AM ORACLE HYPERION CONSULTANT [facility] Microbiology GASTRIC CONTENTS SPECIMEN / Unknown 04/06/2016 9:51 AM ORACLE HYPERION CONSULTANT 04/06/2016 12:31 PM ORACLE HYPERION CONSULTANT Armando Corona MD LAB - MICROBIOLOGY O RDERABLES [facility] [address] [phone] * EGD (04/06/2016 9:19 AM ORACLE HYPERION CONSULTANT) Report Endoscopy POC __ _ Patient Name: [...] Procedure Code(s): ? --- Professional --- ? 21160, Esophagogastroduode noscopy, flexible, transoral; with biopsy, ? single or multiple ? --- Technical --- ? 33793, Esophagogastroduode noscopy, flexible, transoral; with biopsy, ? single or multiple Diagnosis Code(s): ? --- Professional --- ? K20.9, Esophagitis, unspecified ? K29.70, Gastritis, unspecified, without bleeding ? R10.9, Unspecified abdominal pain ? --- Technical --- ? K20.9, Esophagitis, unspecified ? K29.70, Gastritis, unspecified, without bleeding ? R10.9, Unspecified abdominal pain CPT copyright 2015 [employer]. All rights reserved. The codes documented in this report are preliminary and upon chalk machine operator review may be revised to meet current compliance requirements. Armando Corona, 04/06/2016 9:52:47 AM This report has been signed electronically. Number of Addenda: 0 Note Initiated On: 04/06/2016 9:19 AM [facility] 04/06/2016 9:19 AM ORACLE HYPERION CONSULTANT Narrative Procedure Note Armando Corona MD - 04/06/2016 9:53 AM CST EGD Grade A esophagitis Mild gastritis s/p bx Nl duodenum Armando Corona MD GI PROCEDURE ORDERAB LES Performing Organization Address City/[facility] Co de Phone Number [facility] * HCG URINE QUALITATIVE - POINT OF CARE (IP) (04/06/2016 8:50 AM ORACLE HYPERION CONSULTANT) HCG Qual Urine Negative Negative [facility] TEST[facility] QC Verified Yes Yes [facility] POC T TESTING Urine URINE / Unknown 04/06/2016 8 :50 AM ORACLE HYPERION CONSULTANT Armando Corona MD LAB - POINT OF CARE ORDERABLES Performing Organization Address City/[facility]/ZIP Co de Phone Number [facility] [address] [phone] documented in this encounter Visit Diagnoses Diagnosis Epigastric pain Abdominal pain, epigastric documented in this encounter Administered Medications Inactive Administered Medications - up to 3 most recent administrations Medication Order MAR Action Action Date Dose Rate Site 0.9% NaCl infusion at 20 mL/hr, Intravenous, CONTINUOUS, Starting on Sat04/06/16 at 0945, Until Sat04/06/16 at 1213, Pre-procedure (GI) $ New Bag/Syringe 04/06/2016 9:18 AM ORACLE HYPERION CONSULTANT 2 0 mL/hr documented in this encounter Active and Recently Administered Medications Times are shown in ORACLE HYPERION CONSULTANT. Continuous Medication Order 04/04/2016 04/05/2016 04/06/2016 0.9% NaCl infusion at 20 mL/hr, Intravenous, CONTINUOUS, Starting on Sat04/06/16 at 0945, Until Sat04/06/16 at 1213, Pre-procedure (GI) 0918 ($ New Bag/Syri nge - Provider: Cheli Chun, ANTHONY)0947 (Anesthesia Volume Adjustment - Provider: Helen Adair APRN-GAMEMASTER) documented in this encounter Care Teams Ict Support Engineer Relationship Specialty Start Date End Date Feliciano Dash MD [address] [facility] [address] [place] [phone] PCP - General Internal Medicine 12/15/15 06/11/21 Jonathan Hartman RN Line Crewman 07/14/15 documented as of this encounter
--- OUTSIDE RECORDS SUMMARY | 2024-04-29 19:19 | XMS_ITS | Encounter Summary ---
Author Organization [facility] Address [address] [facility] [address] Care Team Providers Care Tar Heat Exchanger Cleaner Name Role Phone Minnie Jonathan Delaney RN Unavailable [phone] Feliciano Dash MD Primary Care Provider [phone] Reason for Visit * Auth/Cert Specialty Diagnoses / Procedures Referred By Kaylynn phillips Referred To Contact Diagnoses Abdominal pain, unspecified abdominal location Abdominal pain, unspecified abdominal location Procedures COLONOSCOPY SCREEN Referral ID Status Reason Start Date Expiration Date Visits Re quested Visits Authorized [id number] 1 1 Encounter Details Date Type Department Care Team (Late st Contact Info) Description 12/15/2015 12:30 PM CDT - 12/15/2015 1:00 PM CDT Surgery [facility] - Endoscopy Services [address] [place] [address] Armando Corona MD [address] [place] [address] [place] [phone] COLONOSCOPY SCREEN Surgery Details Date/Time Status Location OR Service Patient Class Case Class Case Type Trauma Case? 12/15/2015 12:30 PM Posted [facility] ENDO Endo 04 Gastroenterology Surgery Day Care Elective > 5 days Panel 1 Procedure LRB Anes Op Region Wound Class Comments COLONOSCOPY SCREEN N/A MAC Clean Conta minated COLONOSCOPY BIOPSY Clean Conta minated Surgeon Surgeon Role Service Panel Armando Corona MD Primary Gastroenterology 1 documented in this encounter Social History Tobacco [...] as needed 11/14/2015 SUMAtriptan Succinate 6 MG/0.5MLIndications:Doron baker without aura and without status migrainosus, not [...] Case Report Surgical Pathology Report ? Case: [id number] ? Authorizing Provider: ??Armando Corona MD ?Collected: ? 12/15/2015 12:34 PM ? Ordering Location: ? [facility] ENDOSCOPY [facility] ?Received: ?12/16/2015 09:42 AM ? Pathologist: ? Doris Morrison MD ? Specimen: ?Colon Biopsy, random colon biopsy ? 12/17/2015 10:19 AM CDT [facility] Final Diagnosis 1. ??Large intestine, random colon, endoscopic biopsy: -- ??No histopathologic abnormality KL/klg 12/17/2015 10:19 AM CDT [facility] Gross Description Received in formalin in a container labeled Madalyn Walton, random colon biopsy. ??The container holds multiple pink-baird tissue fragments measuring from 0.2 cm up to 0.4 cm. The specimen is entirely submitted in a cassette labeled A1. DYT/eloy 12/17/2015 10:19 AM CDT [facility] Microscopic Description Histologic sections show fragments of large intestinal mucosa without specific histopathologic abnormality. ??There is no evidence of lymphocytic or collagenous colitis. ??There is no evidence of dysplasia or malignancy. ?? OBEY/tao 12/17/2015 10:19 AM CDT [facility] Pathology/Cytolo gy COLONIC BIOPSY SPECIMEN / Unknown 12/15/2015 12:34 PM CDT 12/16/2015 9:42 AM CDT Armando Corona MD LAB - PATHOLOGY/CYTO LOGY ORDERABLES [facility] [address] [place] [address] * ENDOSCOPY, COLON, SCREENING (12/15/2015 12:23 PM CDT) Report Endoscopy POC _ Patient Name: Madalyn Walton ? Procedure Date: 12/15/2015 12:23 PM ? Date of : 1975 ?Admit Type: Outpatient Age: 40 ? Gender: Female Attending MD: Armando Corona , ? _ Procedure: ? Colonoscopy Indications: ? Lower abdominal pain Providers: ? Armando Corona (Doctor), Myranda Keys, Enma Medina, ? Hull Line Crew Member Patient Profile: ?? 40F pmh 40F pmh [...] Procedure Code(s): ? --- Professional --- ? 36068, Colonoscopy, flexible; with biopsy, single or multiple ? --- Technical --- ? 32665, Colonoscopy, flexible; with biopsy, single or multiple Diagnosis Code(s): ? --- Professional --- ? R10.30, Lower abdominal pain, unspecified ? --- Technical --- ? R10.30, Lower abdominal pain, unspecified CPT copyright 2015 [employer]. All rights reserved. The codes documented in this report are preliminary and upon television announcer review may be revised to meet current compliance requirements. Armando Corona, 12/15/2015 12:47:51 PM This report has been signed electronically. Number of Addenda: 0 Note Initiated On: 12/15/2015 12:23 PM [facility] ENDOSCOPY 12/15/2015 12:2 3 PM CDT Narrative Transcriptions Armando Corona MD - 12/15/2015 12:53 PM CDT Neg colon s/p random bx Armando Corona MD GI PROCEDURE ORDERAB LES Performing Organization Address City/[facility] Co de Phone Number [facility] ENDOSCOPY * HCG URINE QUALITATIVE - POINT OF CARE (IP) (12/15/2015 11:35 AM CDT) HCG Qual Urine Negative Negative [facility] POCT TESTING QC Verified Yes Yes [facility] POC T TESTING Urine specimen (specimen) URINE / Unknown 12/15/2015 11:35 AM CDT Armando Corona MD LAB - POINT OF CARE ORDERABLES Performing Organization Address [facility] Co de Phone Number [facility] POCT TESTING [address] [phone] documented in this encounter Visit Diagnoses Diagnosis Abdominal pain, unspecified abdominal location Abdominal pain, unspecified abdominal location documented in [...] (Anesthesia Volume Adjustment - Provider: Kenan García APRN-MOLDER APPRENTICE) documented in this encounter Care Teams Tar Heat Exchanger Cleaner Relationship Specialty Start Date End Date Feliciano Dash MD [address] [place] [address] PCP - General Internal Medicine 12/15/15 06/11/21 Jonathan Hartman, RN Special Effects Specialist 07/14/15 documented as of this encounter
--- OUTSIDE RECORDS SUMMARY | 2024-04-29 19:19 | XMS_ITS | Encounter Summary ---
Author Organization [facility] Address [address] [facility] [address] [place] [address] Care Team Providers Care Manager Food Safety Name Role Phone Minnie Jonathan Delaney RN Unavailable [phone] Feliciano Dash MD Primary Care Provider [phone] Reason for Visit * Auth/Cert Specialty Diagnoses / Procedures Referred By Kaylynn phillips Referred To Contact Diagnoses Epigastric pain Epigastric pain Procedures ESOPHAGOGASTRODUODENOSCOPY (EGD) Referral ID Status Reason Start Date Expiration Date Visits Re quested Visits Authorized [id number] 1 1 Encounter Details Date Type Department Care Team (Latest Contact Info) Description 04/06/2016 9:00 AM IC ENGINEER - 04/06/2016 9:30 AM [facility] Surgery [facility] - Endoscopy Services [address] [place] [address] Armando Corona MD [address] [place] [address] [place] [id number] ESOPHAGOGASTRODUODENOSCOPY (EGD) Surgery Details Date/Time Status Location OR Service Patient Class Case Class Case Type Trauma Case? 04/06/2016 9:00 AM Posted [facility] ENDO Endo 05 Gastroenterology Surgery Day Care Elective > 5 days Panel 1 Procedure LRB Anes Op Region Wound Class Comments ESOPHAGOGASTRODUODENOSCOPY (EGD) N/A MAC Clean Contaminated ENDOSCOPY GI UPPER WITH BIOPSY NA Surgeon Surgeon Role Service Panel Armando Corona [...] Comments Blood Pressure 118/84 04/06/2016 10:45 AM IC ENGINEER Pulse 100 04/06/2016 10:50 AM IC ENGINEER Temperature 36.1 ??C (97 ??F) 04/06/2016 10:30 AM IC ENGINEER Respiratory Rate 25 04/06/2016 10:50 AM IC ENGINEER Oxygen Saturation 100% 04/06/2016 10:50 AM IC ENGINEER Inhaled Oxygen Concentration - - Weight 81.6 kg (180 lb) 04/06/2016 9:12 AM IC ENGINEER Height 167.6 cm (5' 6 ) 04/06/2016 9:12 AM IC ENGINEER Body Mass Index 29.05 04/06/2016 9:12 AM IC ENGINEER documented in this encounter Functional Status Functional [...] Tab 3 12/21/2015 SUMAtriptan Succinate 6 MG/0.5MLIndications:Doron baker without aura [...] as of this encounter Progress Notes * Armanod Corona MD - 04/06/2016 11:00 AM CST Neg h pylori ENGINEER documented in this encounter H&P Notes * [...] MEDICAL PROBLEMS AND . Armando Corona MD ENGINEER documented in this encounter Procedure Notes * Armando Corona MD - 04/06/2016 9:53 AM CSTAssociated Order(s): EGD EGD Grade A esophagitis Mild gastritis s/p bx Nl duodenum ENGINEER documented in this encounter Plan of Treatment Not on file documented as of this encounter Goals Goal Patient Goal Type Associated Problems Recent Progress Patient-Stated? Author Yearly PCP visit Lifestyle No Rukhsana Lazo MA documented as of this encounter Procedures Procedure Name Priority Date/Time Associated Diagnosis Comments HELICOBACTER PYLORI UREASE (STL) STAT 04/06/2016 9:51 AM IC ENGINEER Epigastric pain ESOPHAGOGASTRODUODENOSCOPY ( EGD) BIOPSY 04/06/2016 9:30 AM IC ENGINEER Epigastric pain ESOPHAGOGASTRODUODENOSCOPY ( EGD) DIAGNOSTIC 04/06/2016 9:30 AM IC ENGINEER Epigastric pain EGD Routine 04/06/2016 9:19 AM IC ENGINEER HCG URINE QUALITATIVE - POIN T OF CARE Routine 04/06/2016 8:50 AM IC ENGINEER documented in this encounter Results * HELICOBACTER PYLORI UREASE (STL) (04/06/2016 9:51 AM IC ENGINEER) Helicobacter pylori Urease Initial Negative Negative 04/07/2016 11:49 AM IC ENGINEER [facility] Helicobacter pylori Urease Final Negative Negative 04/07/2016 11:49 AM IC ENGINEER [facility] Microbiology GASTRIC CONTENTS SPECIMEN / Unknown 04/06/2016 9:51 AM IC ENGINEER 04/06/2016 12:31 PM IC ENGINEER Armando Corona MD LAB - MICROBIOLOGY O RDERABLES [facility] [address] [place] [address] * EGD (04/06/2016 9:19 AM IC ENGINEER) Report Endoscopy POC __ _ Patient Name: [...] Procedure Code(s): ? --- Professional --- ? 73855, Esophagogastroduode noscopy, flexible, transoral; with biopsy, ? single or multiple ? --- Technical --- ? 42560, Esophagogastroduode noscopy, flexible, transoral; with biopsy, ? single or multiple Diagnosis Code(s): ? --- Professional --- ? K20.9, Esophagitis, unspecified ? K29.70, Gastritis, unspecified, without bleeding ? R10.9, Unspecified abdominal pain ? --- Technical --- ? K20.9, Esophagitis, unspecified ? K29.70, Gastritis, unspecified, without bleeding ? R10.9, Unspecified abdominal pain CPT copyright 2015 [employer]. All rights reserved. The codes documented in this report are preliminary and upon group underwriter review may be revised to meet current compliance requirements. Armando Corona, 04/06/2016 9:52:47 AM This report has been signed electronically. Number of Addenda: 0 Note Initiated On: 04/06/2016 9:19 AM [facility] ENDOSCOPY 04/06/2016 9:19 AM IC ENGINEER Narrative Procedure Note Armando Corona MD - 04/06/2016 9:53 AM CST EGD Grade A esophagitis Mild gastritis s/p bx Nl duodenum Armando Corona MD GI PROCEDURE ORDERAB LES Performing Organization Address City/[facility] Co de Phone Number [facility] ENDOSCOPY * HCG URINE QUALITATIVE - POINT OF CARE (IP) (04/06/2016 8:50 AM IC ENGINEER) HCG Qual Urine Negative Negative [facility] POCT TESTING QC Verified Yes Yes [facility] POC T TESTING Urine URINE / Unknown 04/06/2016 8 :50 AM IC ENGINEER Armando Corona MD LAB - POINT OF CARE ORDERABLES Performing Organization Address [facility] Co de Phone Number [facility] POCT TESTING [address] [phone] documented in this encounter Visit Diagnoses Diagnosis Epigastric pain Abdominal pain, epigastric Epigastric pain Abdominal pain, epigastric documented in this encounter Administered Medications Inactive Administered Medications - up to 3 most recent administrations Medication Order MAR Action Action Date Dose Rate Site 0.9% NaCl infusion at 20 mL/hr, Intravenous, CONTINUOUS, Starting on Sat04/06/16 at 0945, Until Sat04/06/16 at 1213, Pre-procedure (GI) $ New Bag/Syringe 04/06/2016 9:18 AM IC ENGINEER 2 0 mL/hr documented in this encounter Active and Recently Administered Medications Times are shown in IC ENGINEER. Continuous Medication Order 04/04/2016 04/05/2016 04/06/2016 0.9% NaCl infusion at 20 mL/hr, Intravenous, CONTINUOUS, Starting on Sat04/06/16 at 0945, Until Sat04/06/16 at 1213, Pre-procedure (GI) 0918 ($ New Bag/Syri nge - Provider: Cheli Chun RN)[phone] (Anesthesia Volume Adjustment - Provider: Helen Adair APRN-BOILER TESTER) documented in this encounter Care Teams Manager Food Safety Relationship Specialty Start Date End Date Feliciano Dash MD [address] [facility] [address] [place] [phone] PCP - General Internal Medicine 12/15/15 06/11/21 Jonathan Hartman RN Insole Tacker 07/14/15 documented as of this encounter
--- OUTSIDE RECORDS SUMMARY | 2024-04-29 19:19 | XMS_ITS | Encounter Summary ---
Author Organization [facility] Address [address] [place] [address] Care Team Providers Care Product Safety Professional Name Role Phone MinnieJonathan mckeon RN Unavailable [phone] Feliciano Dash MD Primary Care Provider [phone] Encounter Details Date Type Department Care Team (Late st Contact Info) Description 06/12/2016 Orders Only [facility] - [address] [address] Armando Corona MD [address] [place] [phone] Gastritis, presence of bleeding unspecified, unspecified [...] Progress Notes * Curtis Garland I - 06/12/2016 10:50 AM CST Pharmacy requesting refill Carafate 1 gm/10ml suspension. Spoke to patient who stated that the combination of Zantac/prilosec and carafate has made a significant difference and is working well. She is requesting a refill. WM LEVELER documented in this encounter Plan of Treatment Not on file documented as of this encounter Goals Goal Patient Goal Type Associated Problems Recent Progress Patient-Stated? Author Yearly PCP visit Lifestyle No Rukhsana Lazo MA documented as of this encounter Visit Diagnoses Diagnosis Gastritis, presence of bleeding unspecified, unspecified chronicity, unspecified gastritis type documented in this encounter Care Teams Product Safety Professional Relationship Specialty Start Date End Date Feliciano Dash MD [address] [facility] [address] [place] [address] PCP - General Internal Medicine 12/15/15 06/11/21 Jonathan Hartman, RN Supervisor Boiler Repair 07/14/15 documented as of this encounter
--- OUTSIDE RECORDS SUMMARY | 2024-04-29 19:20 | XMS_ITS | Encounter Summary ---
Author Organization [facility] Address [address] [facility] [place] [address] Care Team Providers Care Vendor Management Specialist Name Role Phone Jonathan Hartman RN Unavailable [phone] Reason for Visit * Reason Comments Pain Abdominal c/o periumbilical pa in x 3 days. Black diarrhea, increased pain today. Nausea. No vomiting. * Auth/Cert Specialty Diagnoses / Procedures Referred By Contac t Referred To Contact Diagnoses Acute pancreatitis, unspecified pancreatitis type Referral ID Status Reason Start Date Expiration Date Visits Re quested Visits Authorized [id number] 1 1 Encounter Details Date Type Department Care Team (Late st Contact Info) Description 08/01/2015 6:48 PM CDT - 08/05/2015 1:58 PM CDT Emergency [address] [facility] [address] [place] [address] Hari Niño MD [address] [place] [id number] Akira Romero MD [address] [place] [address] Chucho Hinton MD [address] [facility] [address] [place] [address] Emergency Medicine Discharge Disposition: Home or Self Care Social History Tobacco Use Types Packs/Day Years Used Date Smoking Tobacco: Former Smokeless Tobacco: Current Alcohol Use Standard Drinks/Week Comments No 0 (1 standard drink = 0.6 oz pur e alcohol) Sex and Gender Information Value Date Recorded Sex Assigned at Not on file Gender Identity Female 01/29/2017 1:09 PM CDT Sexual Orientation Not on file documented as of this encounter Last Filed Vital Signs Vital Sign Reading Time Taken Comments Blood Pressure 120/78 08/05/2015 12:46 PM CDT Pulse 78 08/05/2015 12:46 PM CDT Temperature 36.8 ??C (98.3 ??F) 08/05/2015 1 2:46 PM CDT Respiratory Rate 16 08/05/2015 12:4 6 PM CDT Oxygen Saturation 100% 08/05/2015 12: 46 PM CDT Inhaled Oxygen Concentration - - Weight 80.6 kg (177 lb 12.8 oz) 08/02/2015 1:59 AM CDT Height 167.6 cm (5' 5.98 ) 08/02/2015 1:59 AM CD T Body Mass Index 28.71 08/02/2015 1:59 AM CDT documented in this encounter Functional [...] No 08/04/2015 documented as of this encounter Discharge Summaries * Chucho Hinton MD - 08/05/2015 1:34 PM CDT Physician Discharge Summary Patient Name: Madalyn Walton Date of : 1975 Admit date: 08/01/2015 Discharge date: 08/05/2015 Admitting Physician: Akira Romero MD Attending Physician: Chucho Hinton MD Discharge Physician: Admission Diagnosis: acute diverticulitis Past Medical History Past Medical History Diagnosis Date ??? Diverticulitis ??? Migraine Resolved Diagnoses None found. Discharge Diagnoses irritable bowel syndrome ?? Diagnostic Studies See hospital course Treatments See hospital course Procedures See hospital course Consults GI Hospital Course 40y/o F with h/o depression , seronegative arthritis, diverticulitis, gastric ulcer who presented to Er c/o periumbilical pain x 3 days admitted for suspected flare of diverticulitis. Initially placed on clear liquids, received IVF, analgesia prn. Evaluated by GI Dr. corona who performed colonoscopywhich showed diverticulosis as well as capsule endoscopy which was unremarkable. An assessment of ?irritable bowel syndrome was made and she was started on hyoscyamine. Abdominal pain improved and diet advanced as tolerated. She remained stable and d/c home to f/u with Dr. Corona as OP. Physical exam, see progress note. Condition at discharge: stable Disposition: Home Code Status At Discharge Full Code Patient Instructions Discharge Medication List As of 08/05/2015 11:28 AM START taking these medications Instructions Authorizing Provider ALPRAZolam 0.25 MG tablet Commonly known as: XANAX Take 1 Tab by mouth 3 times daily as needed for Anxiety Chucho Hinton cjtzswaftu-kdxtwhninyino-ypxmzarx 50-325-40 MG tablet Commonly known as: FIORICET Take 1 Tab by mouth every 4 hours as needed for Headache Chucho Hinton hyoscyamine (disintergrating) 0.125 MG tablet Commonly known as: NULEV Take 1 Tab by mouth every 3 hours as needed (abd pain) Chucho Hinton CONTINUE taking these medications Instructions Authorizing Provider DULoxetine 60 MG capsule Commonly known as: CYMBALTA Take 60 mg by mouth once daily loperamide 2 MG capsule Commonly known as: IMODIUM Take 1 Cap by mouth 4 times daily as needed for Diarrhea Chucho Hinton Other 6 mg by Injection route as needed (Imitrex 6m g IM - Inject at onset of migraine, then as directed PRN) oxyCODONE-acetaminophen 5-325 MG tablet Commonly known as: PERCOCET Take 1 Tab by mouth every 4 hours as needed Chucho Hinton pantoprazole EC 40 MG tablet Commonly known as: PROTONIX Take 1 Tab by mouth 2 times daily,before breakfast and supper Chucho Hinton sucralfate 1 GM/10ML suspension Commonly known as: CARAFATE Take 10 mL by mouth 4 times daily - before meals & nightly Chucho Hinton Discharge Procedure Orders Why you were hospitalized Order Specific Question Answer Comments Your discharge diagnosis is Diverticulitis [301398] Follow up with Primary Care Provider (PCP) Our records show your Primary Care Provider (PCP) is Feliciano Dash MD. Order Specific Question Answer Comments Follow Up Instructions: 1 week No special diet needed Activity as tolerated Rest today, and increase your activity level tomorrow as tolerated. Follow up with provider Order Specific Question Answer Comments Follow Up Instructions: 1 week Discharge time: 33 minutes. CC: Feliciano Dash MD documented in this encounter Medications at Time of Discharge Medication Sig Dispensed Refills Start Date End Date DULoxetine (CYMBALTA) 60 MG capsule Take 60 mg by mouth once daily Takes with 30 mg (total daily dose: 90 mg) hyoscyamine, disintergrating, (NULEV) 0.125 MG tablet Take 1 Tab by mouth every 3 hours as needed (abd pain) 30 Tab 0 08/05/2015 ALPRAZolam (XANAX) 0.25 MG tablet Take 1 Tab by mouth 3 times daily as needed for Anxiety 30 Tab 0 08/05/2015 08/13/2015 butalbital-acetaminophe n-caffeine (FIORICET) 50-325-40 MG tablet Take 1 Tab by mouth every 4 hours as needed for Headache 30 Tab 0 08/05/2015 11/18/2015 loperamide (IMODIUM) 2 MG capsule Take 1 Cap by mouth 4 times daily as needed for Diarrhea 30 Cap 0 07/16/2015 01/29/2017 Other 6 mg by Injection route as needed (Imitrex 6m g IM - Inject at onset of migraine, then as directed PRN) 11/18/2015 oxyCODONE-acetaminophen (PERCOCET) 5-325 MG tablet Take 1 Tab by mouth every 4 hours as needed 30 Tab 0 08/05/2015 11/18/2015 pantoprazole EC (PROTONIX) 40 MG tablet Take 1 Tab by mouth 2 times daily,before breakfast and supper 60 Tab 1 07/16/2015 09/29/2015 sucralfate (CARAFATE) 1 GM/10ML suspension Take 10 mL by mouth 4 times daily - before meals & nightly 420 mL 1 07/16/2015 04/25/2016 documented as of this encounter Progress Notes * Sindi Packer RN - 08/05/2015 1:54 PM CDT Discharge instructions understood by pt and scripts filled by [facility]. Pt discharged home. * Chucho Hinton MD - 08/05/2015 1:24 PM CDT IPC Progress Note Admit Date: 08/01/2015 6:48 PM Hospital Day: 4 Clinical Course 40y/o F with h/o depression , seronegative arthritis, diverticulitis, gastric ulcer who presented to Er c/o periumbilical pain x 3 days admitted for suspected flare of diverticulitis New Symptoms Patient denies chest pain, shortness of breath, abdominal pain, nausea, vomiting, diarrhea, constipation, urinary problems or leg pain. Data Vitals: 08/05/15 0001 08/05/15 0404 08/05/15 0851 08/05/15 1246 BP: 121/75 108/57 113/56 120/78 Pulse: 76 59 66 78 Temp: 97.4 ??F 98.2 ??F 97.4 ??F 98.3 ??F Resp: Weight: SpO2: 99% 97% 100% 100% Intake/Output Summary (Last 24 hours) at 08/05/15 1324 Last data filed at 08/05/15 1246 Gross per 24 hour Intake 1852 ml Output 0 ml Net 1852 ml There are no new results to review at this time. Recent Labs Component Name 08/05/15 0709 08/04/15 1116 08/02/15 1002 08/01/15 1850 07/15/15 0551 WBC 4.4 - - 9.3 5.5 HGB 12.5 12.6 12.3 15.1 12.5 HCT 38.4 - 37.6 44.9 38.2 PLTCOUNT 232 - - 339 243 Recent Labs Component Name 08/03/15 0414 08/01/15 1850 07/13/15 1713 SODIUM 141 137 136 POTASSIUM 4.0 4.1 3.8 CHLORIDE 107 106 107 CO2 25 21* 20* BUN 6* 13 23* CREATININE 0.70 0.90 0.94 GLUCOSE 83 88 95 CALCIUM 8.3* 9.3 9.7 MEDICATIONS FOR CURRENT ENCOUNTER: ?? SCHEDULED MEDICATIONS: ?? DULoxetine (CYMBALTA) capsule 60 mg, Oral, QDAY ?? heparin injection 5,000 Units, Subcutaneous, q8h ?? pantoprazole EC (PROTONIX) tablet 40 mg, Oral, QDAY ?? CONTINUOUS MEDICATIONS: ?? 0.9% NaCl infusion, Intravenous, Continuous ?? PRN MEDICATIONS: ?? 0.9% NaCl injection 1-10 mL, Intracatheter, PRN ?? acetaminophen (TYLENOL) tablet 650 mg, Oral, q4h PRN ?? ALPRAZolam (XANAX) tablet 0.25 mg, Oral, TID PRN ?? pjgnitawnl-zgymtmtrfgopi-znvbkqoo (FIORICET) 50-325-40 MG tablet 1 Tab, Oral, q4h PRN ?? HYDROmorphone (DILAUDID) injection 0.6 mg, Intravenous, q4h PRN ?? hyoscyamine (disintergrating) (NULEV) tablet 0.125 mg, Oral, q3h PRN ?? ondansetron (ZOFRAN) injection 4 mg, Intravenous, q4h PRN ?? oxyCODONE-acetaminophen (PERCOCET) 5-325 MG tablet 1-2 Tab, Oral, q4h PRN Exam General: AOX3 Skin: Normal color and temp for age and race. No lesion, rash, or exudate. HEENT: Normocephalic, atraum. EOMI. PERRLA. Mucouse membranes are pink and moist. Neck is supple nontender without lymphadenopathy. ?? Heart: RRR. S1 S2 noted. No murmurs, rubs or gallops. Lungs: CTA. No wheezes, rales, or rhonchi. Abdomen: BS present and normactive x 4 quadrants. Tenderness in the paraumbilical region w/o rebound or tenderness. No palpable mass or organomegaly. Musculoskeletal: 5/5 strength x 4 extremities. ?? Vascular: No cyanosis, clubbing or edema. Neuro: Alert and oriented x 3. CN exam II-XII intact without focal deficit. Strength symmetric without focal weakness. Assessment and Plan Abdominal pain of unclear etiology likely 2/2 irritable bowel syndrome ?? -- GI rec's appreciated; had colonoscopy which showed diverticulosis, capsule endoscopy unremarkble -- tolerating regular diet, continue hyoscyamine, analgesia and antiemetic prn Elevated lipase -- no evidence of pancreatitis; Rx not indicated Gastritis; ?? -- continue PPI bid, sucralfate , avoid NSAID's indefinitely Depression -- continue zoloft Sero -ve arthritis ?? -- f/u with rheumatology as OP DVT prophylaxis ?? -- heparin Sc Dispo; home D/w RN ?? Chucho Hinton MD ?? * Ghazala Deleon APRN-CNP - 08/05/2015 6:32 AM CDT Shift summary: Pt is alert and oriented x4. VSS. Complains of pain in abdomen. Pain medication given per mar. IVF infusing. Swallow capsule study was completed this evening. Call light in reach and patient resting comfortably. Will contiune to monitor. Ghazala Deleon RN 08/05/2015 6:32 AM * Ghazala Deleon APRN-CNP - 08/05/2015 2:33 AM CDT Problem: Pain/Discomfort Goal: Patient exhibits reduced pain/discomfort as evidenced by pain scores Outcome: Ongoing Patient utilizes pain medication per mar. Pt able to sleep comfortably now. * Janina Espinoza RN - 08/04/2015 6:54 PM CDT Patient alert and oriented throughout the day, vital signs stable, pain controlled with administration of prn medication. Will continue to monitor. * Chucho Hinton MD - 08/04/2015 3:14 PM CDT IPC Progress Note Admit Date: 08/01/2015 6:48 PM Hospital Day: 3 Clinical Course 40y/o F with h/o depression , seronegative arthritis, diverticulitis, gastric ulcer who presented to Er c/o periumbilical pain x 3 days admitted for suspected flare of diverticulitis New Symptoms abdominal pain improved Data Vitals: 08/04/15 1005 08/04/15 1010 08/04/15 1115 08/04/15 1400 BP: 143/83 117/69 129/82 110/67 Pulse: 75 81 88 82 Temp: 98.6 ??F 98.4 ??F Resp: 12 6 16 Weight: SpO2: 97% 94% 100% 100% Intake/Output Summary (Last 24 hours) at 08/04/15 1514 Last data filed at 08/04/15 1008 Gross per 24 hour Intake 583 ml Output 0 ml Net 583 ml My review of labs, imaging, notes and other tests shows no new significant findings. Recent Labs Component Name 08/04/15 1116 08/02/15 1002 08/01/15 1850 07/15/15 0551 07/13/15 1713 WBC - - 9.3 5.5 11.3* HGB 12.6 12.3 15.1 12.5 16.2* HCT - 37.6 44.9 38.2 49.0* PLTCOUNT - - 339 243 375 Recent Labs Component Name 08/03/15 0414 08/01/15 1850 07/13/15 1713 SODIUM 141 137 136 POTASSIUM 4.0 4.1 3.8 CHLORIDE 107 106 107 CO2 25 21* 20* BUN 6* 13 23* CREATININE 0.70 0.90 0.94 GLUCOSE 83 88 95 CALCIUM 8.3* 9.3 9.7 MEDICATIONS FOR CURRENT ENCOUNTER: ?? SCHEDULED MEDICATIONS: ?? DULoxetine (CYMBALTA) capsule 60 mg, Oral, QDAY ?? heparin injection 5,000 Units, Subcutaneous, q8h ?? pantoprazole EC (PROTONIX) tablet 40 mg, Oral, QDAY ?? [COMPLETED] polyethylene glycol (GoLYTELY) solution 2,000 mL, Oral, Once ?? [COMPLETED] polyethylene glycol (GoLYTELY) solution 2,000 mL, Oral, Once ?? [] iohexol (OMNIPAQUE 350) contrast, Intravenous, Contrast - Once ?? CONTINUOUS MEDICATIONS: ?? 0.9% NaCl infusion, Intravenous, Continuous ?? PRN MEDICATIONS: ?? 0.9% NaCl injection 1-10 mL, Intracatheter, PRN ?? acetaminophen (TYLENOL) tablet 650 mg, Oral, q4h PRN ?? uieqdekjhy-hyvcihzliihra-cznjswll (FIORICET) 50-325-40 MG tablet 1 Tab, Oral, q4h PRN ?? HYDROmorphone (DILAUDID) injection 0.6 mg, Intravenous, q4h PRN ?? hyoscyamine (disintergrating) (NULEV) tablet 0.125 mg, Oral, q3h PRN ?? ondansetron (ZOFRAN) injection 4 mg, Intravenous, q4h PRN ?? oxyCODONE-acetaminophen (PERCOCET) 5-325 MG tablet 1-2 Tab, Oral, q4h PRN Exam General appearance: alert, cooperative, no distress Heart: regular rhythm, normal S1 and S2, without murmurs, rubs or gallops Lungs: breath sounds normal and symmetric; no rales or wheezes Abdomen: soft without mass, non-tender, with normal bowel sounds Extremities: no clubbing, cyanosis or edema Assessment and Plan ? Acute on chronic diverticulitis ?? -- advance diet to regular, continue analgesia and antiemetic prn ?? -- GI rec's appreciated; had colonoscopy which showed Diverticulosis in the sigmoid colon otherwiseunremarkable, scheduled for capsule endoscopy today -- I strongly suspect she has a significant drug seeking component Suspected c. Diff R/o Elevated lipase -- no evidence of pancreatitis; Rx not indicated Gastritis; ?? -- continue PPI bid, sucralfate , avoid NSAID's indefinitely Depression -- continue zoloft Sero -ve arthritis ?? -- f/u with rheumatology as OP DVT prophylaxis ?? -- heparin Sc Dispo; home tomorrow D/w RN ?? Chucho Hinton MD ?? * Maria C Crocker RN - 08/04/2015 5:59 AM CDT Shift Summary - patient's abdominal pain managed with prn Percocet and Dilaudid. Patient tolerated bowel prep well; stools clear with baird sediment. Patient has been NPO since midnight. Patient deniesnausea and vomiting at this time. Vitals: 08/03/15 1644 08/03/15 2022 08/04/15 0016 08/04/15 0408 BP: 134/87 128/71 122/83 129/66 Pulse: 78 83 84 77 Temp: 98.6 ??F 98 ??F 97.6 ??F 97.4 ??F Resp: Weight: SpO2: 100% 97% 95% 98% Patient resting quietly with eyes closed and call light in reach. Complete assessment per flow sheet. Maria C Crocker RN 08/04/2015 6:09 AM * Chucho Hinton MD - 08/03/2015 1:02 PM CDT IPC Progress Note Admit Date: 08/01/2015 6:48 PM Hospital Day: 2 Clinical Course 40y/o F with h/o depression , seronegative arthritis, diverticulitis, gastric ulcer who presented to Er c/o periumbilical pain x 3 days admitted for suspected flare of diverticulitis New Symptoms Still c/o significant abdominal pain Data Vitals: 08/03/15 0826 08/03/15 0827 08/03/15 0828 08/03/15 0848 BP: 130/83 Pulse: 75 73 82 79 Temp: 98.2 ??F Resp: Weight: SpO2: 96% 94% 94% 100% Intake/Output Summary (Last 24 hours) at 08/03/15 1302 Last data filed at 08/03/15 0824 Gross per 24 hour Intake 2934 ml Output 0 ml Net 2934 ml My review of labs, imaging, notes and other tests shows no new significant findings. Recent Labs Component Name 08/02/15 1002 08/01/15 1850 07/15/15 0551 07/13/15 1713 WBC - 9.3 5.5 11.3* HGB 12.3 15.1 12.5 16.2* HCT 37.6 44.9 38.2 49.0* PLTCOUNT - 339 243 375 Recent Labs Component Name 08/03/15 0414 08/01/15 1850 07/13/15 1713 SODIUM 141 137 136 POTASSIUM 4.0 4.1 3.8 CHLORIDE 107 106 107 CO2 25 21* 20* BUN 6* 13 23* CREATININE 0.70 0.90 0.94 GLUCOSE 83 88 95 CALCIUM 8.3* 9.3 9.7 MEDICATIONS FOR CURRENT ENCOUNTER: ?? SCHEDULED MEDICATIONS: ?? DULoxetine (CYMBALTA) capsule 60 mg, Oral, QDAY ?? heparin injection 5,000 Units, Subcutaneous, q8h ?? iohexol (OMNIPAQUE 350) contrast, Intravenous, Contrast - Once ?? pantoprazole (PROTONIX) injection 40 mg, Intravenous, BID ?? polyethylene glycol (GoLYTELY) solution 2,000 mL, Oral, Once ?? sucralfate (CARAFATE) suspension 1 g, Oral, 4X/day - AC & HS ?? [START ON 08/04/2015] polyethylene glycol (GoLYTELY) solution 2,000 mL, Oral, Once ?? CONTINUOUS MEDICATIONS: ?? 0.9% NaCl infusion, Intravenous, Continuous ?? PRN MEDICATIONS: ?? 0.9% NaCl injection 1-10 mL, Intracatheter, PRN ?? acetaminophen (TYLENOL) tablet 650 mg, Oral, q4h PRN ?? oocygymbwd-jydjzyuxzrmdy-vapmzuck (FIORICET) 50-325-40 MG tablet 1 Tab, Oral, q4h PRN ?? hydrocodone-acetaminophen (NORCO) 5-325 MG tablet 2 Tab, Oral, q4h PRN ?? HYDROmorphone (DILAUDID) injection 1 mg, Intravenous, q3h PRN ?? ondansetron (ZOFRAN) injection 4 mg, Intravenous, q4h PRN Exam General: AOX3 Skin: Normal color and temp for age and race. No lesion, rash, or exudate. HEENT: Normocephalic, atraum. EOMI. PERRLA. Mucouse membranes are pink and moist. Neck is supple nontender without lymphadenopathy. ?? Heart: RRR. S1 S2 noted. No murmurs, rubs or gallops. Lungs: CTA. No wheezes, rales, or rhonchi. Abdomen: BS present and normactive x 4 quadrants. Tenderness in the paraumbilical region w/o rebound or tenderness. No palpable mass or organomegaly. Musculoskeletal: 5/5 strength x 4 extremities. ?? Vascular: No cyanosis, clubbing or edema. Neuro: Alert and oriented x 3. CN exam II-XII intact without focal deficit. Strength symmetric without focal weakness. Assessment and Plan Acute on chronic diverticulitis ?? -- advance diet to full liquids, continue analgesia and antiemetic prn ?? -- GI rec's appreciated; scheduled for colonoscopy in the AM Suspected c. Diff -- stool for c. Diff Elevated lipase -- no evidence of pancreatitis; Rx not indicated Gastritis; ?? -- continue PPI bid, sucralfate , avoid NSAID's indefinitely Depression -- continue zoloft Sero -ve arthritis ?? -- f/u with rheumatology as OP DVT prophylaxis ?? -- heparin Sc D/w RN ?? Chucho Hinton MD ?? * Diana Hickey RN - 08/03/2015 11:31 AM CDT Pt back from EGD with c/o abdominal pain, requesting dilaudid. Pt tolerating full liquid diet. Continues c/o abdominal pain, refuses New [place], states New Hope doesn't really help her. Pt wants to wait until Dilaudid is due again. * Chari Fontenot RN - 08/03/2015 5:34 AM CDT Shift summary: abdominal pain overnight treated with [place] and Dilaudid. Per pt pain never completely gone but reaches tolerable level. Npo for procedure this am, consent in chart. * Mary Castanon RN - 08/02/2015 7:29 PM CDT Shift highlights: VSS. C/o abdominal pain throughout the day. Dilaudid and [place] given as ordered. C/o migraine once today. Fiorcet given with good results. Appetite is fair on clear liquid diet. No N/V. Did request Zofran once today with po pain medication. One small BM today which was joe-formed. . Sent to lab per c-diff and shigella orders. NPO after midnight for EGD tomorrow. Verbalized understanding. IV currently infusing. * Madalyn Medina RN - 08/02/2015 12:19 PM CDT Case Management Initial Assessment Case Management screen completed, welcome letter given. Met with Patient ,at bedside,to discuss d/ needs. Family Support (name and phone): Extended Emergency Contact Information Primary Emergency Contact: Toi Smith [facility] Relation: Significant other Anticipated Discharge Date: Anticipated Discharge Date: 08/03/15 Anticipated level of care / disposition at discharge: Home Prior Level of Functioning: States she is independent with adls. Equipment at Home: Additional Equipment needed at home (does not have at home now): PCP: Feliciano Dash MD If no PCP, action taken: Pharmacy benefit: Yes SW Referral: no LACE SCORE: If there is no score indicated, this patient has yet to be assessed for Readmission Risk. . If the patient has been assessed, the score is:Readmit Risk Score Total: 9 If patient requires HHC at discharge, he/she requests: Transportation at discharge: Family Transportation to MD appointments: family Comments: Patient states she is independent with adls,lives with her children and boyfriend.She states she will return home at d/c,no needs anticipated. Will continue to follow. For any questions or needs please contact: Madalyn Medina RN CM [phone]. Nutrition Teacher Name/Phone number: Madalyn Medina RN * Jaky Pandya RN - 08/02/2015 5:15 AM CDT Shift summary: Patient slept quietly without any further complaints voiced. Call light in reach. ivf infusing well. Will continue to monitor. Patient tolerated ice chips well. No nausea or voimiting noticed. marques ladd * Jaky Pandya RN - 08/02/2015 3:45 AM CDT Admit note: Patient admitted to room 139. Patient is alert and oriented; x4. Call light explained an placed in reach. Patient encourage to call for assistance. ivf started as ordered. @ 0245 Patient complaint of abdominal discomfort and received dilaudid 1 mg; sivp. @0310 Patient complaint of nausea and received zofran 4mg; sivp. Patient asleep @ present without any further complaints voiced. Will continue to monitor. marques ladd documented in this encounter H&P Notes * Armando Corona MD - 08/04/2015 9:09 AM CDT PRE-PROCEDURE HISTORY & PHYSICAL NOTE (Presedation assessment per Anesthesia Team) 08/04/2015 9:09 AM Patient: Madalyn Walton, date of 1975 Procedure(s) planned: colonoscopy Indication(s): melena, abd pain History: Patient Active Problem List Diagnosis ??? Acute cystitis without hematuria Past Medical History Diagnosis Date ??? Diverticulitis ??? Migraine Past Surgical History Procedure Laterality Date ??? Acl reconstruction Bilateral ??? Endoscopy, colon, diagnostic ??? Tonsillectomy ??? Endoscopy, upper N/A 07/15/2015 N/A; ESOPHAGOGASTRODUODENOSCOPY (EGD) ??? Endoscopy, upper 07/15/2015 ENDOSCOPY GI UPPER WITH BIOPSY ??? Endoscopy, upper N/A 08/03/2015 N/A; ESOPHAGOGASTRODUODENOSCOPY (EGD) ??? Endoscopy, upper 08/03/2015 ENDOSCOPY GI UPPER WITH BIOPSY No Known Allergies Current Facility-Administered Medications Medication Dose Route Frequency Provider Last Rate Last Dose ??? 0.9% NaCl injection 3 mL 3 mL Intracatheter pre-Procedure multiple Armando Corona MD ??? 0.9% NaCl infusion Intravenous Continuous Armando Corona MD ??? pantoprazole (PROTONIX) injection 40 mg 40 mg Intravenous BID Chucho Hinton MD 40 mg at 08/03/152018 ??? heparin injection 5,000 Units 5,000 Units Subcutaneous q8h Chucho Hinton MD 5,000 Units at 08/03/15 2143 ??? HYDROmorphone (DILAUDID) injection 0.6 mg 0.6 mg Intravenous q4h PRN Chucho Hinton MD 0.6 mgat 08/04/15 0417 ??? oxyCODONE-acetaminophen (PERCOCET) 5-325 MG tablet 1-2 Tab 1-2 Tab Oral q4h PRN Chucho Hinton MD 1 Tab at 08/04/15 0641 ??? ondansetron (ZOFRAN) injection 4 mg 4 mg Intravenous q4h PRN Hari Niño MD 4 mg at 314 ??? DULoxetine (CYMBALTA) capsule 60 mg 60 mg Oral QDAY Chucho Hinton MD 60 mg at 08/03/15 0912 ??? acetaminophen (TYLENOL) tablet 650 mg 650 mg Oral q4h PRN Hari Niño MD ??? euqotudqru-lxxrhrpauiswv-raietpsw (FIORICET) 50-325-40 MG tablet 1 Tab 1 Tab Oral q4h PRN Chucho Hinton MD 1 Tab at 08/02/15 1047 ? ? sucralfate (CARAFATE) suspension 1 g 1 g Oral 4X/day - AC & HS Chucho Hinton MD 1 g at 08/03/152018 ??? 0.9% NaCl infusion Intravenous Continuous Chucho Hinton MD 100 mL/hr at 08/03/15 2300 ??? 0.9% NaCl injection 1-10 mL 1-10 mL Intracatheter PRN Hari Niño MD Review of systems: Chest pain: No. Shortness of breath: No. Review of systems otherwise negative. Physical Exam: BP 133/82 mmHg Pulse 73 Temp(Src) 97.4 ??F Resp 18 Wt 80.65 kg (177 lb 12.8 oz) BMI 28.71kg/m2 GENERAL: The patient is alert, oriented and [...] MEDICAL PROBLEMS AND . Armando Corona MD * Armando Corona MD - 08/03/2015 7:44 AM CDT PRE-PROCEDURE HISTORY & PHYSICAL NOTE (Presedation assessment per Anesthesia Team) 08/03/2015 7:44 AM Patient: Madalyn Walton, date of 1975 Procedure(s) planned: egd Indication(s): abd pain, melena, prior ulcers History: Patient Active Problem List Diagnosis ??? Acute cystitis without hematuria Past Medical History Diagnosis Date ??? Diverticulitis ??? Migraine Past Surgical History Procedure Laterality Date ??? Acl reconstruction Bilateral ??? Endoscopy, colon, diagnostic ??? Tonsillectomy ??? Endoscopy, upper N/A 07/15/2015 N/A; ESOPHAGOGASTRODUODENOSCOPY (EGD) ??? Endoscopy, upper 07/15/2015 ENDOSCOPY GI UPPER WITH BIOPSY No Known Allergies Current Facility-Administered Medications Medication Dose Route Frequency Provider Last Rate Last Dose ??? 0.9% NaCl infusion Intravenous Continuous Armando Corona MD 20 mL/hr at 08/03/15 0700 ??? hydrocodone-acetaminophen (NORCO) 5-325 MG tablet 2 Tab 2 Tab Oral q4h PRN Hari Niño MD 2 Tab at 08/03/15 0205 ??? ondansetron (ZOFRAN) injection 4 mg 4 mg Intravenous q4h PRN Hari Niño MD 4 mg at 314 ??? HYDROmorphone (DILAUDID) injection 1 mg 1 mg Intravenous q3h PRN Akira Romero MD 1 mg at 08/03/15 0501 ??? DULoxetine (CYMBALTA) capsule 60 mg 60 mg Oral QDAY Chucho Hinton MD 60 mg at 08/02/15 1229 ??? acetaminophen (TYLENOL) tablet 650 mg 650 mg Oral q4h PRN Hari Niño MD ??? ldawzdeage-knhemcilykojw-iljartop (FIORICET) 50-325-40 MG tablet 1 Tab 1 Tab Oral q4h PRN Chucho Hinton MD 1 Tab at 08/02/15 1047 ? ? sucralfate (CARAFATE) suspension 1 g 1 g Oral 4X/day - AC & HS Chucho Hinton MD 1 g at 08/02/15 2315 ??? 0.9% NaCl infusion Intravenous Continuous Chucho Hinton MD 100 mL/hr at 08/03/15 0032 ??? pantoprazole (PROTONIX) injection 40 mg 40 mg Intravenous BID Armando Corona MD 40 mg at 08/02/15 2147 ??? 0.9% NaCl injection 1-10 mL 1-10 mL Intracatheter PRN Hari Niño MD ??? iohexol (OMNIPAQUE 350) contrast Intravenous Contrast - Once Hari Niño MD 100 mL at 08/01/152025 Review of systems: Chest pain: No. Shortness of breath: No. Review of systems otherwise negative. Physical Exam: BP 125/84 mmHg Pulse 68 Temp(Src) 97.4 ??F Resp 18 Wt 80.65 kg (177 lb 12.8 oz) BMI 28.71kg/m2 GENERAL: The patient is alert, oriented and in no apparent distress. HEENT: Neck supple, posterior pharynx is clear. LUNGS: Lungs are clear to auscultation. CVS: Heart sounds are normal, no murmurs. ABDOMEN: Soft, LUCY tenderness, masses or organomegaly. EXTREMITIES: Normal. NEURO: [...] MEDICAL PROBLEMS AND . Armando Corona MD * Chucho Hinton MD - 08/02/2015 9:16 AM CDT [facility] Madalyn Walton 1975 Data Unavailable 08/01/2015 Feliciano Dash MD Chief Complaint Patient presents with ??? Pain Abdominal c/o periumbilical pain x 3 days. Black diarrhea, increased pain today. Nausea. No vomiting. HPI 40y/o F with h/o depression , seronegative arthritis, diverticulitis, gastric ulcer who presented to Er c/o periumbilical pain x 3 days. Per patient, she was in her usual state of health until 3 daysprior to presentation when she developed pain in the paraumbilical region. Pain was said to be 8-9/10 in intensity, sharp, non radiating w/o aggravating or relieving factors. There was associated diarrhea. She denies N/V, abdominal distention, fever, cough, chest pain, sob or any other Sx. Patient was recently d/c on 07/16/15 when she was managed for gastric ulcers and diverticulitis and d/c home to complete 2 week course of abx Past Medical History Diagnosis Date ??? Diverticulitis ??? Migraine Past Surgical History Procedure Laterality Date ??? Acl reconstruction Bilateral ??? Endoscopy, colon, diagnostic ??? Tonsillectomy ??? Endoscopy, upper N/A 07/15/2015 N/A; ESOPHAGOGASTRODUODENOSCOPY (EGD) ??? Endoscopy, upper 07/15/2015 ENDOSCOPY GI UPPER WITH BIOPSY No family history on file. History Social History ??? Marital Status: Spouse Name: N/A Number of Children: N/A ??? Years of Education: N/A Occupational History ??? Not on file. Social History Main Topics ??? Smoking status: Former Smoker ??? Smokeless tobacco: Current User ??? Alcohol Use: No ??? Drug Use: No ??? Sexual Activity: Not on file Other Topics Concern ??? Not on file Social History Narrative Review of patient's allergies indicates no known allergies. Prescriptions prior to admission Medication Sig Dispense Refill ??? pantoprazole EC (PROTONIX) 40 MG tablet Take 1 Tab by mouth 2 times daily,before breakfast and supper 60 Tab 1 ? ? sucralfate (CARAFATE) 1 GM/10ML suspension Take 10 mL by mouth 4 times daily - before meals & nightly 420 mL 1 ??? Other 6 mg by Injection route as needed (Imitrex 6m g IM - Inject at onset of migraine, then asdirected PRN) ??? DULoxetine (CYMBALTA) 60 MG capsule Take 60 mg by mouth once daily ??? oxyCODONE-acetaminophen (PERCOCET) 5-325 MG tablet Take 1 Tab by mouth every 4 hours as needed 30 Tab 0 ??? loperamide (IMODIUM) 2 MG capsule Take 1 Cap by mouth 4 times daily as needed for Diarrhea 30 Cap 0 No current facility-administered medications on file prior to encounter. Current Outpatient Prescriptions on File Prior to Encounter Medication Sig Dispense Refill ??? pantoprazole EC (PROTONIX) 40 MG tablet Take 1 Tab by mouth 2 times daily,before breakfast and supper 60 Tab 1 ? ? sucralfate (CARAFATE) 1 GM/10ML suspension Take 10 mL by mouth 4 times daily - before meals & nightly 420 mL 1 ??? Other 6 mg by Injection route as needed (Imitrex 6m g IM - Inject at onset of migraine, then asdirected PRN) ??? DULoxetine (CYMBALTA) 60 MG capsule Take 60 mg by mouth once daily ??? oxyCODONE-acetaminophen (PERCOCET) 5-325 MG tablet Take 1 Tab by mouth every 4 hours as needed 30 Tab 0 ??? loperamide (IMODIUM) 2 MG capsule Take 1 Cap by mouth 4 times daily as needed for Diarrhea 30 Cap 0 Review of Systems A comprehensive review of systems was negative except as described in HPI. PHYSICAL EXAM Vitals: 08/02/15 0159 08/02/15 0428 08/02/15 0759 08/02/15 1234 BP: 113/65 115/49 134/84 114/70 Pulse: 87 91 106 75 Temp: 97 ??F 97.7 ??F 97.9 ??F 97.4 ??F Resp: 18 20 20 20 Weight: 177 lb 12.8 oz SpO2: 100% 100% 98% No data found. General: AOX3 Skin: Normal color and temp for age and race. No lesion, rash, or exudate. HEENT: Normocephalic, atraum. EOMI. PERRLA. Mucouse membranes are pink and moist. Neck is supple nontender without lymphadenopathy. Heart: RRR. S1 S2 noted. No murmurs, rubs or gallops. Lungs: CTA. No wheezes, rales, or rhonchi. Abdomen: BS present and normactive x 4 quadrants. Tenderness in the paraumbilical region w/o rebound or tenderness. No palpable mass or organomegaly. Musculoskeletal: 5/5 strength x 4 extremities. Vascular: No cyanosis, clubbing or edema. Neuro: Alert and oriented x 3. CN exam II-XII intact without focal deficit. Strength symmetric without focal weakness. LAB DATA Recent Labs Component Name 08/02/15 1002 08/01/15 1850 07/15/15 0551 07/13/15 1713 WBC - 9.3 5.5 11.3* HGB 12.3 15.1 12.5 16.2* HCT 37.6 44.9 38.2 49.0* PLTCOUNT - 339 243 375 Recent Labs Component Name 08/01/15 1850 SODIUM 137 POTASSIUM 4.1 CHLORIDE 106 CO2 21* BUN 13 CREATININE 0.90 GLUCOSE 88 CALCIUM 9.3 ALBUMIN 4.3 ALKPHOS 77 ALT 34 AST 13 TBIL 0.2 TPROT 7.9 EGFR >60 No results for input(s): MAGMGDL in the last 21296 hours. No results for input(s): PHOS in the last 28930 hours. No results for input(s): AMYLASE in the last 91227 hours. No results for input(s): PHART, DIT8ALF, PO2ART, F2XZMRQS, BEART, FIO2 in the last 54628 hours. Invalid input(s): ALU5JVA No results for input(s): BNP in the last 50974 hours. Recent Labs Component Name 07/14/15 1343 CDIFFTOXINAB Negative No results for input(s): HGBA1C in the last 87124 hours. No results for input(s): INR in the last 57866 hours. Recent Labs Component Name 08/02/15 1002 CHOL 184 TRIG 156* HDL 43 LDLCALC 110 No results for input(s): PT in the last 24143 hours. No results for input(s): PTT in the last 67777 hours. No results for input(s): T3FREE in the last 86625 hours. No results for input(s): T4FREE in the last 17836 hours. No results for input(s): TSH in the last 54112 hours. Recent Labs Component Name 08/01/15 1935 COLORUA Yellow SPECGRAVUA 1.019 PHUA 6.5 PROTEINUA Negative BLOODUA Negative LEUKOCYTEUA 1+* NITRITEUA Negative GLUCOSEUA Negative KETONEUA Negative BILIRUBINUA Negative UROBILINUA 0.2 EPITHUA 2-5 MUCUSUA Trace ASSESSMENT/PLAN Acute on chronic diverticulitis ?? -- advance diet to clears, continue analgesia and antiemetic prn ?? -- GI cx for possible colonoscopy Suspected c. Diff -- stool for c. Diff Elevated lipase -- no evidence of pancreatitis; Rx not indicated Gastritis; ?? -- continue PPI bid, sucralfate , avoid NSAID's indefinitely Depression -- continue zoloft Sero -ve arthritis ?? -- f/u with rheumatology as OP DVT prophylaxis ?? -- heparin Sc D/w RN ?? Chucho Hinton MD ?? The patient is admitted with a diagnosis or diagnoses of Acute on chronic diverticulitis ?? and current medical needs include IV hydration & analgesia, GI eval for possible colonoscopy. The patient has the following complex medical factors: gastritis documented in this encounter Procedure Notes * Armando Corona MD - 08/04/2015 9:39 AM CDTAssociated Order(s): ENDOSCOPY, COLON, DIAGNOSTIC Colonoscopy * fair prep *few diverticuli * no old or fresh blood * normal terminal ileum rec PRN hyoscyamine Capsule endoscopy today * Armando Corona MD - 08/03/2015 8:00 AM CDTAssociated Order(s): EGD EGD - mild gastritis bx'd, other normal to proximal jejunum Rec Colonoscopy tomorrow Follow [facility] documented in this encounter Consult Notes * Nicky Gonsalez - 08/02/2015 3:28 PM CDTAssociated Order(s): IP CONSULT TO PASTORAL CARE Tool Shaper Set Up Operator support to the patient was requested/provided. * Armando Corona MD - 08/02/2015 12:10 PM CDTAssociated Order(s): IP CONSULT TO GASTROENTEROLOGY GASTROENTEROLOGY INPATIENT CONSULT ? Referring Physician: No ref. provider found PCP: Feliciano Dash MD Visit Date: 08/02/2015 Reason for consultation:abd pain, diverticulitis CC:abd pain x 32 HPI: Madalyn Walton is a 40 y.o.female with pmh of depression, arthritis diverticulitis 3 months prior and noted gastric ulcers at endoscopy 06/2014 being seen for the above reason Was in usual state of health until some worsening acute abd pain over past 3 days in LUQ a/w blackdiarrhea -- last was yesterday No emesis/nausea, just severe sharp pain that brought her in Some worsening with food Tells me she has stopped NSAIDs and taking PPI as directed Sepideh clears today No BM yet Review of Systems: Gen/Constitutional: No weight loss, No fevers/chills. Normal appetite Eyes: Negative for visual disturbances or icterus ENT: Negative for tinnitus, nasal congestion, sore mouth, sore throat, hoarseness and voice change Respiratory: Negative for cough, sputum, hemoptysis, dyspnea on exertion or chronic bronchitis Cardiovascular: Negative for lower extremity edema, chest pain/pressure/discomfort, dyspnea on exertion, palpitations, orthopnea, LE edema Gastrointestinal: Per HPI Genitourinary: Negative for dysuria, nocturia, urinary incontinence, hematuria Hematologic: Negative for easy bruising, bleeding, lymphadenopathy and petechiae Musculoskeletal: Negative for myalgias, arthralgias and muscle weakness Neurological: Negative for headaches, dizziness, weakness, or numbness Psych: Negative for depression, anxiety, or SI Skin: No rashes, new lesions, no easy bruising A complete review of systems was performed and all others are negative Past Medical History: Past Medical History Diagnosis Date ??? Diverticulitis ??? Migraine Past Surgical History: Past Surgical History Procedure Laterality Date ??? Acl reconstruction Bilateral ??? Endoscopy, colon, diagnostic ??? Tonsillectomy ??? Endoscopy, upper N/A 07/15/2015 N/A; ESOPHAGOGASTRODUODENOSCOPY (EGD) ??? Endoscopy, upper 07/15/2015 ENDOSCOPY GI UPPER WITH BIOPSY Family History: No family history on file. Denies family history of GI/liver/pancreaticobiliary disorders or malignancy Social History: Lives at home Tobacco: denies Etoh: denies Illicits: denies. Allergies: No Known Allergies MEDICATIONS FOR CURRENT ENCOUNTER: Outpatient Current Facility-Administered Medications Medication Dose Route Frequency Provider Last Rate Last Dose ??? hydrocodone-acetaminophen (NORCO) 5-325 MG tablet 2 Tab 2 Tab Oral q4h PRN Hari Niño MD ??? ondansetron (ZOFRAN) injection 4 mg 4 mg Intravenous q4h PRN Hari Niño MD 4 mg at 08/02/15 0314 ??? HYDROmorphone (DILAUDID) injection 1 mg 1 mg Intravenous q3h PRN Akira Romero MD 1 mg at 08/02/15 1118 ??? pantoprazole EC (PROTONIX) tablet 40 mg 40 mg Oral BID AC Chucho Hinton MD 40 mg at 08/02/15 1100 ??? DULoxetine (CYMBALTA) capsule 60 mg 60 mg Oral QDAY Chucho Hinton MD ??? acetaminophen (TYLENOL) tablet 650 mg 650 mg Oral q4h PRN Hari Niño MD ??? abrpxeryau-pgglqmsglbnkf-taalrnjc (FIORICET) 50-325-40 MG tablet 1 Tab 1 Tab Oral q4h PRN Chucho Hinton MD 1 Tab at 08/02/15 1047 ? ? sucralfate (CARAFATE) suspension 1 g 1 g Oral 4X/day - AC & HS Chucho Hinton MD ??? 0.9% NaCl infusion Intravenous Continuous Chucho Hinton MD 100 mL/hr at 08/02/15 1121 ??? 0.9% NaCl injection 1-10 mL 1-10 mL Intracatheter PRN Hari Niño MD ??? iohexol (OMNIPAQUE 350) contrast Intravenous Contrast - Once Hari Niño MD 100 mL at 08/01/152025 Inpatient: DULoxetine (CYMBALTA) capsule 60 mg, Oral, QDAY iohexol (OMNIPAQUE 350) contrast, Intravenous, Contrast - Once pantoprazole EC (PROTONIX) tablet 40 mg, Oral, BID AC sucralfate (CARAFATE) suspension 1 g, Oral, 4X/day - AC & HS [COMPLETED] 0.9% NaCl IV Bolus, Intravenous, Once [COMPLETED] HYDROmorphone (DILAUDID) injection 1 mg, Intravenous, Now [COMPLETED] HYDROmorphone (DILAUDID) injection 1 mg, Intravenous, Now [COMPLETED] morphine injection 4 mg, Intravenous, Now [COMPLETED] morphine injection 4 mg, Intravenous, Now [COMPLETED] ondansetron (ZOFRAN) injection 4 mg, Intravenous, Now CONTINUOUS MEDICATIONS: 0.9% NaCl infusion, Intravenous, Continuous PRN MEDICATIONS: 0.9% NaCl injection 1-10 mL, Intracatheter, PRN acetaminophen (TYLENOL) tablet 650 mg, Oral, q4h PRN zfmlkbusox-nrystsbwjeyft-lxzahgbe (FIORICET) 50-325-40 MG tablet 1 Tab, Oral, q4h PRN hydrocodone-acetaminophen (NORCO) 5-325 MG tablet 2 Tab, Oral, q4h PRN HYDROmorphone (DILAUDID) injection 1 mg, Intravenous, q3h PRN ondansetron (ZOFRAN) injection 4 mg, Intravenous, q4h PRN Physical Exam: Wt Readings from Last 4 Encounters: 08/02/15 80.65 kg (177 lb 12.8 oz) 07/13/15 80.74 kg (178 lb) BP 134/84 mmHg Pulse 106 Temp(Src) 97.9 ??F Resp 20 Wt 80.65 kg (177 lb 12.8 oz) BMI 28.71 kg/m2 Body mass index is 28.71 kg/(m^2). Gen: In no acute distress, appears stated age obese WF HEENT: Anicteric sclera, Oral mucosa, lips and tongue appear normal. Normal dentition. Neck: Supple, no JVD, no masses, No lymphadenopathy Lungs: CTAB. No dullness. No wheezes. No rales Heart:RRR, normal S1 and S2, no murmurs or extra heart sounds appreciated Abdomen: Soft, mod ttp epigastrium, Not distended, No kaylene ascites, Bowel sounds are normal, No masses or hepatosplenomegaly Ext: No edema, No cyanosis, No clubbing Musculoskeletal: Ambulates, No joint redness, tenderness Neurologic: Grossly nonfocal. Motor 5/5. No sensory deficits. CN grossly intact. A&Ox3 Psych: Appropriate affect, mood, and thought processes. No evidence of hallucination or delirium. Labs Lab Results Component Value Date WBC 9.3 08/01/2015 HGB 12.3 08/02/2015 HCT 37.6 08/02/2015 MCV 83.9 08/01/2015 Lab Results Component Value Date CO2 21* 08/01/2015 BUN 13 08/01/2015 CALCIUM 9.3 08/01/2015 Lab Results Component Value Date ALKPHOS 77 08/01/2015 AST 13 08/01/2015 ALT 34 08/01/2015 ALBUMIN 4.3 08/01/2015 Recent Labs Component Name 08/02/15 1002 08/01/15 1850 07/15/15 0551 07/13/15 1713 WBC - 9.3 5.5 11.3* HGB 12.3 15.1 12.5 16.2* HCT 37.6 44.9 38.2 49.0* PLTCOUNT - 339 243 375 Recent Labs Component Name 08/01/151849 SODIUM 137 POTASSIUM 4.1 CHLORIDE 106 CO2 21* BUN 13 CREATININE 0.90 GLUCOSE 88 CALCIUM 9.3 ALBUMIN 4.3 ALKPHOS 77 ALT 34 AST 13 TBIL 0.2 TPROT 7.9 EGFR >60 Recent Labs Component Name 08/01/15 1850 07/13/15 1713 SODIUM 137 136 POTASSIUM 4.1 3.8 CHLORIDE 106 107 CO2 21* 20* BUN 13 23* CREATININE 0.90 0.94 GLUCOSE 88 95 CALCIUM 9.3 9.7 Recent Labs Component Name 08/01/15 1850 07/13/15 1713 ALBUMIN 4.3 4.5 ALKPHOS 77 94 ALT 34 35 AST 13 11 TBIL 0.2 0.7 TPROT 7.9 8.9* No results for input(s): INR in the last 47895 hours. No results for input(s): AMYLASE in the last 21623 hours. Recent Labs Component Name 08/01/15 1850 07/13/15 1713 LIPASE 681* 411* Prior Imaging: CT A/P with [...] normal. ?? IMPRESSION ??No acute intra-abdominal pathology. Prior Endoscopies: EGD 07/15/15 Impression: ?- Normal esophagus. ?- Non-bleeding gastric ulcers. Biopsied. ?- Normal examined duodenum. Findings: ?The examined esophagus was normal. ?3 non-bleeding linear gastric ulcers were found in the gastric antrum. ?The largest lesion was 1 mm in largest dimension. Biopsies were taken ?with a cold forceps for Helicobacter pylori testing. ?The examined duodenum was normal. ?? 1. ??Gastric antrum, biopsy: -- ??Focal mild chronic inflammation IMPRESSION Madalyn Walton is a 40 y.o. with * Periumbilical pain and hx melena, in setting of prior gastric ulcers. Needs eval of UGI tract first * Prior NSAID use * Comorbidities: depression, arthritis, diverticulitis 3 months prior PLAN * PPI IV BID for now * Carafate * clears, adv Diet as tolerated * Pain control * EGD tomorrow * Colonoscopy if EGD unremarkable Thank you for allowing me to participate in the care of your patient. Do not hesitate to contact meif you have further questions. Armando Corona MD [facility] office: [phone] Exchange: [phone] documented in this encounter Nursing Notes * Shari Deras RN - 08/04/2015 2:48 PM CDT Small bowel video capsule swallowed without difficulty. Written and verbal instructions given to patient and assigned nurse. Endoscopy nurse will remove recorder after 8-16 hours. NPO for next two hours. Clear liquids at 1700 with nothing red. documented in this encounter ED Notes * Beti Stinson RN - 08/02/2015 1:32 AM CDT Admission discussed with pt and spouse, both of which verbally state understanding. Pt AOX4. Will continue to floor with transportation by RN. Report written and floor paged. Will continue to monitor. * Beti Stinson RN - 08/02/2015 1:19 AM CDT Pt's lights turned off and door closed to encourage adequate rest. BP 155/100 mmHg Pulse 112 Temp(Src) 97.5 ??F Resp 16 Wt 76.658 kg (169 lb) BMI 27.29 kg/m2 Will continue to monitor. * Beti Stinson RN - 08/02/2015 12:58 AM CDT Pt is resting on stretcher with side rails up and call light in reach. BP 119/93 mmHg Pulse 128 Temp(Src) 97.5 ??F Resp 22 Wt 76.658 kg (169 lb) BMI 27.29 kg/m2 Will continue to monitor. * Beti Stinson RN - 08/02/2015 12:22 AM CDT Pt is resting on stretcher with side rails up and call light in reach. BP 121/65 mmHg Pulse 79 Temp(Src) 97.5 ??F Resp 20 Wt 76.658 kg (169 lb) BMI 27.29 kg/m2 Will continue to monitor. * Beti Stinson RN - 08/01/2015 10:53 PM CDT Admission discussed with pt and pt verbally stated understanding. Family at bedside. Will continue to floor with transportation by medic. BP 111/52 mmHg Pulse 95 Temp(Src) 97.5 ??F Resp 15 Wt76.658 kg (169 lb) BMI 27.29 kg/m2 Will continue to monitor. * Beti Stinson RN - 08/01/2015 10:09 PM CDT Chart is available for review, submitted by ANTHONY Livingston at [employer] [id number] Situation: Patient is a 40 y.o. female that came to the ER via Personal Transportation with - Chief Complaint Patient presents with ??? Pain Abdominal c/o periumbilical pain x 3 days. Black diarrhea, increased pain today. Nausea. No vomiting. . Problem started: acute episode 3 days ago. B Background: Patient being admitted for Final diagnoses: Abdominal pain, generalized Level of care General Medicine Significant medial/surgical history includes: Past Medical History Diagnosis Date ??? Diverticulitis ??? Migraine Past Surgical History Procedure Laterality Date ??? Acl reconstruction Bilateral ??? Endoscopy, colon, diagnostic ??? Tonsillectomy ??? Endoscopy, upper N/A 07/15/2015 N/A; ESOPHAGOGASTRODUODENOSCOPY (EGD) ??? Endoscopy, upper 07/15/2015 ENDOSCOPY GI UPPER WITH BIOPSY A Assessment: LOC: Alert and oriented 4 Lines/Drains/Airways (include gauge/location/fluids infusing as appropriate) 20g L AC Cardiac Rhythm Sinus Tachycardia Explain any abnormals in physical assessment and/or vital signs : elevated HR, pancreatitis How was this addressed? Admission for observation Outcome? ongoing R Recommendation: Equipment needs: Telemetry monitoring device and IV pump VOV or no publicity: No Forensic Restraints/police custody: No Sitter: No Suicide Precautions: No Social concerns: No Belongings: Yes Safety concerns: Fall risk: No Isolation: NA * Beti Stinson RN - 08/01/2015 10:07 PM CDT Pt up to restroom and is ambulatory by self with steady gait. Pt requesting PO ice chips and something more for pain. it just keeps creeping back up again. Rates it at 7/10 . * Beti Stinson RN - 08/01/2015 8:46 PM CDT Pt back from CT and still rates pain as 8/10 after second dose of morphine. notified and requested order for dilaudid. Will give to pt once verified. BP 126/85 mmHg Pulse 113 Temp(Src) 97.5 ??F Resp 12 Wt 76.658 kg (169 lb) BMI 27.29 kg/m2 Will continue to monitor. * Beti Stinson RN - 08/01/2015 8:25 PM CDT Pt off to CT. * Librado Montesinos EMT-P - 08/01/2015 7:53 PM CDT Check on pt., still having severe pain. Stated I would notify ANTHONY Livingston. * Beti Stinson RN - 08/01/2015 7:31 PM CDT Pt ambulatory to restroom by self with steady gait. Obtaining urine sample now. BP 144/115 mmHg Pulse 158 Temp(Src) 97.5 ??F Resp 16 Wt 76.658 kg (169 lb) BMI 27.29 kg/m2 Will continue to monitor. * Marta Marcus RN - 08/01/2015 7:19 PM CDT Report to Andrew Stinson RN. * Beti Stinson RN - 08/01/2015 7:16 PM CDT Report received from ANTHONY Lozano. Assessing pt now and pt states this acute pain has started 3 days ago but problem has been ongoing for 6 months with bleeding ulcers. BP 144/115 mmHg Pulse 158 Temp(Src) 97.5 ??F Resp 16 Wt 76.658 kg (169 lb) BMI 27.29 kg/m2 Will continue to monitor. * Marta Marcus RN - 08/01/2015 6:59 PM CDT Arrival to ED c/o abdominal pain and dark/black diarrhea. Pt states she was recently treated for a gastric ulcer; states pain started several days ago but became severe today. Upon arrival to ED pt appears uncomfortable, HR elevated to 160's. VICTORINO GRADY at bedside. * Hari Niño MD - 08/01/2015 6:48 PM CDT Images from the original note were not included. Provider contact with the patient: 08/01/2015 18:48 Madalyn Walton [id number] [facility]ENC[facility]PART[facility] History Chief Complaint Patient presents with ??? Pain Abdominal c/o periumbilical pain x 3 days. Black diarrhea, increased pain today. Nausea. No vomiting. HPI Comments: Madalyn Walton is a 40 y.o. female with PMHx of diverticulitis and migraines presenting tot ED with a chief complaint of gradually worsening LUQ pain onset 3 days. The pain is described as constant, sharp, and non-radiating. The patient notes contacting her GI physician today and was told to come into the ED. Associated symptoms include black diarrhea and nausea. Denies vomiting. The patient states that The history is provided by the patinet. Pain Abdominal The history is provided by the patient. This is a new problem. The current episode started more than 2 days ago. The problem occurs constantly. The problem has been gradually worsening. The pain is associated with an unknown factor. The pain is located in the LUQ. The quality of the pain is sharp. The pain is moderate. Associated symptoms include diarrhea and nausea.Pertinent negatives include nofever, no vomiting, no dysuria, no frequency, no headaches or no myalgias.Nothing worsens the pain.The pain is relieved by nothing. Past workup includes endoscopy.Risk factors for an abdominal aortic aneurysm include over 40 years old. Risk factors for an ectopic include none. Past Medical History Diagnosis Date ??? Diverticulitis ??? Migraine Past Surgical History Procedure Laterality Date ??? Acl reconstruction Bilateral ??? Endoscopy, colon, diagnostic ??? Tonsillectomy ??? Endoscopy, upper N/A 07/15/2015 N/A; ESOPHAGOGASTRODUODENOSCOPY (EGD) ??? Endoscopy, upper 07/15/2015 ENDOSCOPY GI UPPER WITH BIOPSY No family history on file. History Social History ??? Marital Status: Spouse Name: N/A Number of Children: N/A ??? Years of Education: N/A Occupational History ??? Not on file. Social History Main Topics ??? Smoking status: Former Smoker ??? Smokeless tobacco: Current User ??? Alcohol Use: No ??? Drug Use: No ??? Sexual Activity: Not on file Other Topics Concern ??? Not on file Social History Narrative Review of Systems Review of Systems Constitutional: Negative for fever and chills. Eyes: Negative for blurred vision. Respiratory: Negative for cough and shortness of breath. Cardiovascular: Negative for chest pain and leg swelling. Gastrointestinal: Positive for nausea, abdominal pain and diarrhea. Negative for vomiting. Genitourinary: Negative for dysuria and frequency. Musculoskeletal: Negative for myalgias and back pain. Neurological: Negative for dizziness, sensory change, focal weakness, weakness and headaches. All other systems reviewed and are negative. Physical Exam BP 121/86 mmHg Temp(Src) 97.5 ??F Resp 20 Ht 1.676 m (5' 6 ) Wt 76.658 kg (169 lb) BMI 27.29 kg/m2 SpO2 100% Physical Exam Constitutional: She is oriented to person, place, and time. She appears well- developed and well-nourished. No distress. HENT: Head: Normocephalic and atraumatic. Eyes: EOM are normal. Pupils are equal, round, and reactive to light. Neck: Normal range of motion. Neck supple. Cardiovascular: Normal rate, regular rhythm, normal heart sounds and intact distal pulses. No murmur heard. Pulmonary/Chest: Effort normal and breath sounds normal. No respiratory distress. She has no wheezes. She has no rales. She exhibits no tenderness. Abdominal: Soft. She exhibits no distension and no mass. Bowel sounds are decreased. There is tenderness in the epigastric area and left upper quadrant. There is no rebound and no guarding. Genitourinary: Guaiac positive stool (trace). Rectal Exam: Minimal stool. Pain with exam. Musculoskeletal: Normal range of motion. She exhibits no edema or tenderness. Lymphadenopathy: She has no cervical adenopathy. Neurological: She is alert and oriented to person, place, and time. No cranial nerve deficit. She exhibits normal muscle tone. Coordination normal. Skin: Skin is warm and dry. No rash noted. She is not diaphoretic. Psychiatric: She has a normal mood and affect. Her behavior is normal. Nursing note and vitals reviewed. Medications Current Outpatient Prescriptions Medication Sig Dispense Refill ??? pantoprazole EC (PROTONIX) 40 MG tablet Take 1 Tab by mouth 2 times daily,before breakfast and supper 60 Tab 1 ? ? sucralfate (CARAFATE) 1 GM/10ML suspension Take 10 mL by mouth 4 times daily - before meals & nightly 420 mL 1 ??? Other 6 mg by Injection route as needed (Imitrex 6m g IM - Inject at onset of migraine, then asdirected PRN) ??? DULoxetine (CYMBALTA) 60 MG capsule Take 60 mg by mouth once daily ??? oxyCODONE-acetaminophen (PERCOCET) 5-325 MG tablet Take 1 Tab by mouth every 4 hours as needed 30 Tab 0 ??? loperamide (IMODIUM) 2 MG capsule Take 1 Cap by mouth 4 times daily as needed for Diarrhea 30 Cap 0 Procedures Procedures ECG Interpretation ECG Interpretation Lab Interpretation Oxygen Saturation Interpretation The oxygen saturation level is: 100%. The patient was on Room Air for the saturation measurement. Measurement frequency: Continuous. Oxygen saturation interpretation is Normal. Intervention(s) used: None. Hospital Encounter on 08/01/15 CBC W AUTO DIFFERENTIAL Result Value Ref Range WBC 9.3 4.4-10.7 x10E9/L WBC Corrected x10E9/L RBC 5.35 (H) 3.80-5.20 x10E12/L Hgb 15.1 12.0-15.6 gm/dL HCT 44.9 35.9-45.5 % MCV 83.9 80.7-98.3 fl MCH 28.2 26.7-34.0 pg MCHC 33.6 30.8-35.9 gm/dL Plt Ct 339 153-416 x10E9/L RDW-CV 15.0 (H) 12.1-14.9 % MPV 8.3 (L) 9.4-12.9 fl Neutro 54.0 44.0-73.0 % Lymph 36.4 20.0-43.0 % [place] 7.1 5.0-13.0 % Eos 1.0 0.0-6.0 % Baso 1.0 0.0-2.0 % Immature Grans 0.5 0-1 % Neutro Abs 5.03 2.01-7.14 x10E9/L Lymph Abs 3.39 1.07-3.94 x10E9/L [place] Abs 0.66 0.26-1.07 x10E9/L Eosin Abs 0.09 0-0.47 x10E9/L Baso Abs 0.09 (H) 0-0.08 x10E9/L Immature Grans (Abs) 0.05 0.00-0.06 x10E9/L NRBC Auto 0 /100 WBC COMPREHENSIVE METABOLIC PANEL Result Value Ref Range Glucose 88 74-106 mg/dL Sodium 137 136-145 mmol/L Potassium 4.1 3.5-5.1 mmol/L Chloride 106 98-107 mmol/L CO2 21 (L) 22-31 mmol/L Calcium 9.3 8.5-10.1 mg/dL Anion Gap 10 5-20 mmol/L BUN 13 7-21 mg/dL Creatinine 0.90 0.50-1.30 mg/dL Alk Phos 77 38-126 U/L ALT/SGPT 34 12-78 U/L AST/SGOT 13 5-40 U/L Protein Total 7.9 6.4-8.2 gm/dL Albumin 4.3 3.4-5.0 gm/dL Bili Total 0.2 0.2-1.0 mg/dL eGFR MDRD >60 >60 mL/min/1.73m2 eGFR MDRD AFR AMR >60 >60 mL/min/1.73m2 URINALYSIS ROUTINE W/REFLEX TO CULTURE Result Value Ref Range Color UA Yellow Straw, Yellow, Dark Yellow Clarity UA Clear Specific [place] UA 1.019 1.005-1.030 pH UA 6.5 5.0-8.0 pH Protein UA Negative Negative Blood UA Negative Negative Leukocyte UA 1+ (Abnormal) Negative Nitrite UA Negative Negative Glucose UA Negative Negative Ketone UA Negative Negative Bili UA Negative Negative Urobilinogen UA 0.2 0.1-1.0 EU/dL WBC UA Auto 2-5 0-2, 2-5 # /hpf RBC UA Auto 2-5 0-2, 2-5 # /hpf Reflex Status Culture to follow LIPASE BLOOD Result Value Ref Range Lipase 681 (H) 10-220 U/L URINALYSIS MICROSCOPIC ONLY W/REFLEX CULTURE Result Value Ref Range Bacteria UA 1+ (Abnormal) None Seen Epithelial Cell UA 2-5 0-2, 2-5 # /hpf Mucus Trace Hyaline Casts 0-2 0-2 # /lpf Calcium Oxalate Crystals 2+ (Abnormal) None Seen TYPE + SCREEN PANEL Result Value Ref Range ABO Patient Type A Rh Patient Type Positive Antibody Screen Negative CT ABDOMEN AND PELVIS WITH IV CONTRAST Final Result No acute intra-abdominal pathology. ?? CT ABDOMEN AND PELVIS WITH ??IV CONTRAST (Final result) Result time: 08/01/15 21:07:49 ?? Final result by Results Interface, Radiology In (08/01/15 21:07:49) ?? Impression: ?No acute intra-abdominal pathology. ?? Narrative: ?? CT OF THE ABDOMEN AND PELVIS WITH INTRAVENOUS CONTRAST Contrast: 100 cc of Omnipaque 350. HISTORY: Periumbilical pain. COMPARISON: None available. FINDINGS: LOWER THORAX: Normal. HEPATOBILIARY: There are no focal hepatic lesions. Gallbladder is unremarkable. There is no biliaryductal dilatation. SPLEEN: No splenomegaly. ??Calcified granulomas are seen. PANCREAS: No focal masses or ductal dilatation. ADRENALS: No adrenal nodules. KIDNEYS/URETERS: There are bilateral nonobstructing renal calculi, measuring up to 6 mm at the upper pole of the right kidney. ??There is no hydronephrosis or solid renal mass. ??There are tiny cystsbilaterally. PELVIC ORGANS/BLADDER: Bladder and uterus are normal. [...] lumbar spine. ??Skeletal structures are otherwise normal. ?? PRELIMINARY REPORT [facility] Patient Name: ISABEL FROST Age: 28 Patient MR NO: [id number] Referring Doctor: Dr. Dickerson Patient Location: Emergency Department CLINICAL INDICATION: left back pain and vomiting CT ABDOMEN & PELVIS W/O IV C 1. Mild left hydronephrosis and hydroureter. No definite stone identified. There may be a recently passed stone versus infection or inflammation. Correlate clinically. 2. No acute pancreatitis 3. The gallbladder is surgically absent 4. No bowel obstruction 5. No herniated bowel loops 6. No focal inflammatory changes 7. The appendix is unremarkable 8. No large ovarian cysts To Talk to Radiologist([phone] or([phone] Leeroy Ching M.D. Electronically Signed Progress Notes 6:49 PM Plan: Labs, CT abdomen/pelvis. 9:35 PM Call out to IPC. 9:36 PM I reevaluated the patient???s medical condition, comfort, and provided a care update. Informed patient and family of admission. 10:33 PM I discussed with Dr. Romero ([facility]) all pertinent aspects of the case including HPI details, physicalexam findings, testing completed, medications given, the pt's current condition, my clinical impression, and the need for admission for further evaluation and treatment. Dr. Romero agrees to accept the patient at this time for pancreatitis. I had a formal disposition interview with the patient/family to discuss the ED visit and disposition plan. The patient/family understand and agree with the plan. Interim orders written by undersigned. Observation inpatient to Telemetry. ED Course Medical Decision Making I have reviewed the: Previous Chart, Nursing Notes and Vitals. I have interpreted the following results: Labs, CT Scans and Oxygen Saturation. I have discussed the case with Admitting Physician, Family/Caregiver and Hospitalist. Orders Placed This Encounter ??? CULTURE URINE ??? CT ABDOMEN AND PELVIS WITH IV CONTRAST ??? CBC W AUTO DIFFERENTIAL ??? COMPREHENSIVE METABOLIC PANEL ??? URINALYSIS ROUTINE W/REFLEX TO CULTURE ??? LIPASE BLOOD ??? URINALYSIS MICROSCOPIC ONLY W/REFLEX CULTURE ??? HCG URINE QUALITATIVE - POINT OF CARE (IP) ??? 0.9% NaCl injection 1-10 mL ??? ondansetron (ZOFRAN) injection 4 mg ??? 0.9% NaCl IV Bolus Followed by ??? 0.9% NaCl infusion ??? morphine injection 4 mg ??? morphine injection 4 mg ??? iohexol (OMNIPAQUE 350) contrast ??? HYDROmorphone (DILAUDID) injection 1 mg ??? HYDROmorphone (DILAUDID) injection 1 mg Clinical Impression Final diagnoses: Abdominal pain, generalized Acute pancreatitis, unspecified pancreatitis type (Primary) Pancreatitis, unspecified pancreatitis type Disposition: Admit to Telemetry under Dr. Romero I have reviewed the information recorded by the scribe and agree with its accuracy and contents--Dr. Niño 08/01/2015 10:50 PM Transcribed by Inez Ro acting scribe on behalf of Dr. Niño 08/01/2015 6:49 PM documented in this encounter Plan of Treatment Scheduled Orders Name Type Priority Associated Diagnoses Order Schedule HCG URINE QUALITATIVE - POINT OF CARE (IP) Point of Care Testing STAT ONCE for 1 Occurrences starting 08/01/2015 until 08/01/2015 SMALL BOWEL CAPSULE ENDOSCOPY GI Routine ONCE for 1 Occurrences starting 08/04/2015 until 08/04/2015 documented as of this encounter Procedures Procedure Name Priority Date/Time Associated Diagnosis Comments CBC W AUTO DIFFERENTIAL AM Draw 08/05/19 16 7:09 AM CDT ENDOSCOPY DRUG INDUCED SLEEP EVALUATION 08/04/2015 2:[address] Ne[address]. Corona HEMOGLOBIN AM Draw 08/04/2015 11:16 AM CDT PATHOLOGY TISSUE EXAM (STL) Routine 07/21 9:31 AM CDT Diagnosis unknown COLONOSCOPY WITH REMOVAL OF TUMOR OR POLYP BY SNARE TECHNIQUE 08/04/2015 9:12 AM CDT Diagnosis unknown COLONOSCOPY SCREEN 08/04/2015 9:12 AM CDT Diagnosis unknown ENDOSCOPY, COLON, DIAGNOSTIC Routine 9:04 AM CDT PATHOLOGY TISSUE EXAM (STL) Routine 07/21 7:54 AM CDT Diagnosis unknown ESOPHAGOGASTRODUODENOSCOPY (EGD) BIOPSY 08/03/2015 7:27 AM CDT Diagnosis unknown ESOPHAGOGASTRODUODENOSCOPY (EGD) DIAGNOSTIC 08/03/2015 7:27 AM CDT Diagnosis unknown EGD Routine 08/03/2015 7:24 AM CDT BASIC METABOLIC PANEL (CALCI UM TOTAL) AM Draw 08/03/2015 4:14 AM CDT Pancreatitis, unspecified pancreatitis type (HCC) CULTURE STOOL+ E COLI SHIGA-LIKE TOXIN Routine 08/02/2015 4:51 PM CDT Diarrhea HGB HCT PANEL Routine 08/02/2015 10:02 AM CDT Pancreatitis, unspecified pancreatitis type (HCC) ALCOHOL ETHYL BLOOD Routine 08/02/2015 10:02 AM CDT Pancreatitis, unspecified pancreatitis type (HCC) LIPID PROFILE Routine 08/02/2015 10:02 AM CDT Pancreatitis, unspecified pancreatitis type (HCC) CT ABDOMEN PELVIS W CONTRAST STAT 02/2016 8:36 PM CDT Abdominal pain, generalized URINE MICROSCOPIC ONLY REFLE X TO CULTURE STAT 08/01/2015 7:35 PM CDT URINALYSIS REFLEX MICROSCOPI C REFLEX CULTURE STAT 08/01/2015 7:35 PM CDT CULTURE URINE STAT 08/01/2015 7:35 PM CDT TYPE + SCREEN PANEL STAT 08/01/2015 7:19 PM CDT CBC W AUTO DIFFERENTIAL STAT 08/01/19 16 6:50 PM CDT COMPREHENSIVE METABOLIC PANEL STAT 6:50 PM CDT LIPASE BLOOD STAT 08/01/2015 6:50 PM CDT documented in this encounter Results * (ABNORMAL) CBC W AUTO DIFFERENTIAL (08/05/2015 7:09 AM CDT) WBC 4.4 4.4 - 10.7 x10E9/L 08/05/2015 7:28 AM CDT [facility] WBC Corrected x10E9/L 08/05/2015 7:28 AM CDT [facility] RBC 4.41 3.80 - 5.20 x10E12/L 08/05/2015 7:28 AM CDT [facility] Hemoglobin 12.5 12.0 - 15.6 gm/dL 08/05/2015 7:28 AM CDT [facility] Hematocrit 38.4 35.9 - 45.5 % 08/05/2015 7:28 AM CDT [facility] MCV 87.1 80.7 - 98.3 fl 08/05/2015 7:28 AM CDT [facility] MCH 28.3 26.7 - 34.0 pg 08/05/2015 7:28 AM CDT [facility] MCHC 32.6 30.8 - 35.9 gm/dL 08/05/2015 7:28 AM CDT [facility] Platelet Count 232 153 - 416 x10E9/L 08/05/2015 7:28 AM CDT [facility] RDW-CV 14.5 12.1 - 14.9 % 08/05/2015 7:28 AM CDT [facility] MPV 8.6(L) 9.4 - 12.9 fl 08/05/2015 7:28 AM CDT [facility] Neutrophils % 39.6(L) 44.0 - 73.0 % 08/05/2015 7:28 AM CDT [facility] Lymphocytes % 52.4(H) 20.0 - 43.0 % 08/05/2015 7:28 AM CDT [facility] Monocytes % 5.5 5.0 - 13.0 % 08/05/2015 7:28 AM CDT [facility] Eosinophils % 1.1 0.0 - 6.0 % 08/05/2015 7:28 AM CDT [facility] Basophils % 0.9 0.0 - 2.0 % 08/05/2015 7:28 AM CDT [facility] Immature Granulocytes 0.5 0 - 1 % 08/05/2015 7:28 AM CDT [facility] Neutrophil Absolute 1.73(L) 2.01 - 7.14 x10E9/L 08/05/2015 7:28 AM CDT [facility] Lymphocytes Absolute 2.29 1.07 - 3.94 x10E9/L 08/05/2015 7:28 AM CDT [facility] Monocytes Absolute 0.24(L) 0.26 - 1.07 x10E9/L 08/05/2015 7:28 AM CDT [facility] Eosinophils Absolute 0.05 0 - 0.47 x10E9/L 08/05/2015 7:28 AM CDT [facility] Basophils Absolute 0.04 0 - 0.08 x10E9/L 08/05/2015 7:28 AM CDT [facility] Immature Granulocytes Absolute 0.02 0.00 - 0.06 x10E9/L 08/05/2015 7:28 AM CDT [facility] nRBC Auto 0 /100 WBC 08/05/2015 7:28 AM CDT [facility] Blood BLOOD SPECIMEN / Unknown Lab Venipuncture / Unknown 08/05/2015 7:09 AM CDT 08/05/2015 7:21 AM CDT Armando Corona MD LAB - HEMATOLOGY ORD ERABLES Performing Organization Address [facility] Co de Phone Number [facility] [address] [place] [address] * HEMOGLOBIN (08/04/2015 11:16 AM CDT) Hemoglobin 12.6 12.0 - 15.6 gm/dL 08/04/2015 11:28 AM CDT [facility] Blood BLOOD SPECIMEN / Unknown Lab Venipuncture / Unknown 08/04/2015 11:16 AM CDT 08/04/2015 11:22 AM CDT Armando Corona MD LAB - HEMATOLOGY ORD ERABLES Performing Organization Address [facility] de Phone Number [facility] [address] [place] [address] * GROSS + MICRO EXAM (STL) (08/04/2015 9:31 AM CDT) Case Report Surgical Pathology Report ? Case: [id number] ? Authorizing Provider: ??Armando Corona MD ? Collected: ? 08/04/2015 09:31 AM ? Ordering Location: ? [facility] ?Received: ?08/04/2015 12:25 PM ? Pathologist: ? Kamilla Bustamante MD ? Specimen: ?Polyp Descending, Descending colon polyp ? 08/05/2015 11:25 AM CDT [facility] Final Diagnosis 1. ??Descending colon, polyp, biopsy: -- ??Hyperplastic polyp SR/al 08/05/2015 11:25 AM CDT [facility] Gross Description Received in formalin in a container labeled Walton, Madalyn, descending colon polyp. ??The container holds a 0.5 x 0.4 x 0.3 cm baird tissue fragment. ??The specimen is entirely submitted in a cassette labeled A1. ?? DYT/rtc 08/05/2015 11:25 AM CDT [facility] Microscopic Description Microscopic examination reveals colonic mucosal fragment with hyperplastic polyp changes. Malignancy is not seen. /al 08/05/2015 11:25 AM CDT [facility] Pathology/Cytolo gy POLYP / Unknown 08/04/2015 9:31 AM CDT 08/04/2015 12:25 PM CDT Armando Corona MD LAB - PATHOLOGY/CYTO LOGY ORDERABLES [facility] [address] [place] [address] * ENDOSCOPY, COLON, DIAGNOSTIC (08/04/2015 9:04 AM CDT) Report Endoscopy POC _ Patient [...] Procedure Code(s): ? --- Professional --- ? 29892, Colonoscopy, flexible; with removal of tumor(s), polyp(s), or ? other lesion(s) by snare technique ? --- Technical --- ? 42018, Colonoscopy, flexible; with removal of tumor(s), polyp(s), [...] abscess ? without bleeding CPT copyright 2015 [employer]. All rights reserved. The codes documented in this report are preliminary and upon youtuber review may be revised to meet current compliance requirements. Armando Corona, 08/04/2015 9:38:09 AM This report has been signed electronically. Number of Addenda: 0 Note Initiated On: 08/04/2015 9:04 AM [facility] 08/04/2015 9:04 AM CDT Narrative Transcriptions Armando Corona MD - 08/04/2015 9:39 AM CDT Colonoscopy * fair prep *few diverticuli * no old or fresh blood * normal terminal ileum rec PRN hyoscyamine Capsule endoscopy today Armando Corona MD GI PROCEDURE ORDERAB LES [facility] * GROSS + MICRO EXAM (STL) (08/03/2015 7:54 AM CDT) Case Report Surgical Pathology Report ? Case: [id number] ? Authorizing Provider: ??Armando Corona MD ? Collected: ? 08/03/2015 07:54 AM ? Ordering Location: ? [facility] ?Received: ?08/03/2015 12:09 PM ? Pathologist: ? Kamilla Bustamante MD ? Specimen: ?Gastric Biopsy ? 08/04/2015 10:17 AM CDT [facility] Final Diagnosis 1. ??Gastric biopsy: -- ??Chronic gastritis -- ??H. pylori stain negative for bacterial organisms /[facility] 08/04/2015 10:17 AM T [facility] Gross Description The specimen is received fixed in formalin in 1 container labeled with the patient's name, and gastric biopsy and contains three soft baird-yellow tissue fragments each measuring 0.3 cm in greatest dimension. The specimen is strained through a mesh bag and submitted in toto in cassette A1. /[facility] 08/04/2015 10:17 AM CDT [facility] Microscopic Description Microscopic examination reveals gastric antrum and body mucosal fragments with patchy chronic gastritis. Metaplasia, dysplasia, malignancy and granulomas are not seen. H. pylori stain is negative for bacterial organisms. All of the stain(s), control slide(s) and test tissue slide(s) were judged as technically acceptable. /[facility] 08/04/2015 10:17 AM CDT [facility] Pathology/Cytolo gy GASTRIC BIOPSY SPECIMEN / Unknown 08/03/2015 7:54 AM CDT 08/03/2015 12:09 PM CDT Armando Corona MD LAB - PATHOLOGY/CYTO LOGY ORDERABLES [facility] [address] [place] [address] * EGD (08/03/2015 7:24 AM CDT) Report Endoscopy POC _ Patient Name: Madalyn Walton ? Procedure Date: 08/03/2015 7:24 AM ? Date of : 1975 ?Admit Type: Inpatient Age: 40 ? Gender: Female Attending MD: Armando Corona, ? _ Procedure: ? Upper GI endoscopy Indications: ? Epigastric abdominal pain, Periumbilical abdominal pain, ? Melena Providers: ? Armando Corona (Doctor), Roxi Bennett RN, Sona Dove, ? Buggy [employer]er Patient Profile: ?? 40F pmh depression, arthritis, diverticulitis 3 months ? prior, prior gastric ulcers 06/2015, here to evaluate ? worsening abd pain and melena Referring MD: ?Feliicano Dash Md (Referring MD) Medicines: ? Monitored [...] Procedure Code(s): ? --- Professional --- ? 67768, Esophagogastroduod enoscopy, flexible, transoral; with biopsy, ? single or multiple ? --- Technical --- ? 77976, Esophagogastroduod enoscopy, flexible, transoral; with biopsy, ? single or multiple Diagnosis Code(s): ? --- Professional --- ? K29.70, Gastritis, unspecified, without bleeding ? R10.13, Epigastric pain ? R10.33, Periumbilical pain ? K92.1, Melena (includes Hematochezia) ? --- Technical --- ? K29.70, Gastritis, unspecified, without bleeding ? R10.13, Epigastric pain ? R10.33, Periumbilical pain ? K92.1, Melena (includes Hematochezia) CPT copyright 2015 [employer]. All rights reserved. The codes documented in this report are preliminary and upon youtuber review may be revised to meet current compliance requirements. Armando Corona, 08/03/2015 8:00:13 AM This report has been signed electronically. Number of Addenda: 0 Note Initiated On: 08/03/2015 7:24 AM [facility] 08/03/2015 7:24 AM CDT Narrative Transcriptions Armando Corona MD - 08/03/2015 8:00 AM CDT EGD - mild gastritis bx'd, other normal to proximal jejunum Rec Colonoscopy tomorrow Follow cbcs Armando Corona MD GI PROCEDURE ORDERAB LES [facility] * (ABNORMAL) BASIC METABOLIC PANEL (CALCIUM TOTAL) (08/03/2015 4:14 AM CDT) Glucose 83 74 - 106 mg/dL 08/03/2015 5:35 AM CDT [facility] Sodium 141 136 - 145 mmol/L 08/03/2015 5:35 AM CDT [facility] Potassium 4.0 3.5 - 5.1 mmol/L 08/03/2015 5:35 AM CDT [facility] Chloride 107 98 - 107 mmol/L 08/03/2015 5:35 AM CDT [facility] CO2 25 22 - 31 mmol/L 08/03/2015 5:35 AM CDT [facility] Calcium 8.3(L) 8.5 - 10.1 mg/dL 08/03/2015 5:35 AM CDT [facility] Anion Gap 9 5 - 20 mmol/L 08/03/2015 5:35 AM CDT [facility] BUN 6(L) 7 - 21 mg/dL 08/03/2015 5:35 AM CDT [facility] Creatinine 0.70 0.50 - 1.30 mg/dL 08/03/2015 5:35 AM CDT [facility] eGFR by MDRD >60 >60 mL/min/1.7 3m2 08/03/2015 5:35 AM CDT [facility] eGFR by MDRD >60 >60 mL/min/1.7 3m2 08/03/2015 5:35 AM CDT [facility] Blood BLOOD SPECIMEN / Unknown Lab Venipuncture / Unknown 08/03/2015 4:14 AM CDT 08/03/2015 4:52 AM CDT Akira Romero MD LAB - CHEMISTRY MORGAN YEE [facility] [address] [place] [address] * CULTURE STOOL+ E COLI SHIGA-LIKE TOXIN (08/02/2015 4:51 PM CDT) Culture No growth Salmonella, Shigella, Campylobacter , E. coli 0157:h7 or Yersinia CARLOS EDUARDO 08/04/2015 6:27 AM CDT [facility] Culture Negative E. coli Shiga-like toxin (NM) CARLOS EDUARDO 08/04/2015 6:27 AM CDT [facility] Stool STOOL SPECIMEN / Unknown Collection / Unknown 08/02/2015 4:51 PM CDT 08/02/2015 4:56 PM CDT Chucho Hinton MD LAB - MICROBIOLOGY O RDERAPOPEYE [facility] [address] [place] [phone] * (ABNORMAL) LIPID PROFILE (08/02/2015 10:02 AM CDT) Cholesterol 184 <200 mg/dL 08/02/2015 10:49 AM CDT [facility] Triglycerides 156(H) <150 mg/dL 08/02/2015 10:49 AM CDT [facility] HDL Cholesterol 43 >40 mg/dL 08/02/2015 10:49 AM CDT [facility] LDL Calculated 110 <130 mg/dL 08/02/2015 10:49 AM CDT [facility] VLDL Calculated 31(H) <=30 mg/dL 08/02/2015 10:49 AM CDT [facility] Chol HDL Ratio 4.3 <4.5 08/02/2015 10:49 AM CDT [facility] LDL/HDL Ratio 2.6 <5.0 08/02/2015 10:49 AM CDT [facility] Blood BLOOD SPECIMEN / Unknown Lab Venipuncture / Unknown 08/02/2015 10:02 AM CDT 08/02/2015 10:13 AM CDT Chucho Hinton MD LAB - CHEMISTRY MORGAN YEE Performing Organization Address [facility]/ZIP Co de Phone Number [facility] [address] [place], [place] [id number] * ALCOHOL ETHYL BLOOD (08/02/2015 10:02 AM CDT) Ethanol <10 <10 mg/dL 08/02/2015 10:49 AM CDT [facility] Ethanol Calculated <0.100 gm/dL 08/02/2015 10:49 AM CDT [facility] Blood BLOOD SPECIMEN / Unknown Lab Venipuncture / Unknown 08/02/2015 10:02 AM CDT 08/02/2015 10:13 AM CDT Narrative [facility] - 08/02/2015 10:49 AM CDT Non Legal Serum Alcohol Chucho Hinton MD LAB - CHEMISTRY MORGAN YEE Performing Organization Address [facility] Co de Phone Number [facility] [address] [place] [address] * HGB HCT PANEL (08/02/2015 10:02 AM CDT) Hemoglobin 12.3 12.0 - 15.6 gm/dL 08/02/2015 10:37 AM CDT [facility] Hematocrit 37.6 35.9 - 45.5 % 08/02/2015 10:37 AM CDT [facility] Blood BLOOD SPECIMEN / Unknown Lab Venipuncture / Unknown 08/02/2015 10:02 AM CDT 08/02/2015 10:13 AM CDT Akira Romero MD LAB - HEMATOLOGY ORD PRIMITIVO Performing Organization Address City/[facility]/ZIP Co de Phone Number [facility] [address] [place] [phone] * CT ABDOMEN AND PELVIS WITH IV [...] pathology. Hari Niño MD CT ORDERABLES * CULTURE URINE (08/01/2015 7:35 PM CDT) Culture 10,000-50,000 CFU/mL urogenital adelso CARLOS EDUARDO 08/03/2015 9:25 AM CDT [facility] Urine URINE SPECIMEN OBTAINED BY CLEAN CATCH PROCEDURE / Unknown Collection / Unknown 08/01/2015 7:35 PM CDT 08/01/2015 7:39 PM CDT Hari Niño MD LAB - MICROBIOLOGY O RDERABLES Performing Organization Address City/[facility]/ZIP Co de Phone Number [facility] [address] [phone] * (ABNORMAL) URINALYSIS MICROSCOPIC ONLY W/REFLEX CULTURE (08/01/2015 7:35 PM CDT) Bacteria UA 1+(A) None Seen 08/01/2015 8:02 PM CDT [facility] Epithelial Cell UA 2-5 0-2, 2-5 # /hpf 08/01/2015 8:02 PM CDT [facility] Mucus UA Trace 08/01/2015 8:02 PM CDT [facility] Hyaline Casts 0-2 0 - 2 # /lpf 08/01/2015 8:02 PM CDT [facility] Calcium Oxalate Crystals 2+(A) None Seen 08/01/2015 8:02 PM CDT [facility] Urine URINE SPECIMEN OBTAINED BY CLEAN CATCH PROCEDURE / Unknown Collection / Unknown 08/01/2015 7:35 PM CDT 08/01/2015 7:39 PM CDT Hari Niño MD LAB - URINALYSIS ORD ERABLES Performing Organization Address City/[facility]/ZIP Co de Phone Number [facility] [address] [place] [address] * (ABNORMAL) URINALYSIS ROUTINE W/REFLEX TO CULTURE (08/01/2015 7:35 PM CDT) Color UA Yellow Straw, Yellow, Dark Yellow 08/01/2015 7:45 PM CDT [facility] Clarity UA Clear 08/01/2015 7:45 PM CDT [facility] Specific [place] UA 1.019 1.005 - 1.030 08/01/2015 7:45 PM CDT [facility] pH UA 6.5 5.0 - 8.0 pH 08/01/2015 7:45 PM CDT [facility] Protein UA Negative Negative 08/01/2015 7:45 PM CDT [facility] Blood UA Negative Negative 08/01/2015 7:45 PM CDT [facility] Leukocyte UA 1+(A) Negative 08/01/2015 7:45 PM CDT [facility] Nitrite UA Negative Negative 08/01/2015 7:45 PM CDT [facility] Glucose UA Negative Negative 08/01/2015 7:45 PM CDT [facility] Ketone UA Negative Negative 08/01/2015 7:45 PM CDT [facility] Bilirubin UA Negative Negative 08/01/2015 7:45 PM CDT [facility] Urobilinogen UA 0.2 0.1 - 1.0 EU/dL 08/01/2015 7:45 PM CDT [facility] WBC UA Auto 2-5 0-2, 2-5 # /hpf 08/01/2015 7:45 PM CDT [facility] RBC UA Auto 2-5 0-2, 2-5 # /hpf 08/01/2015 7:45 PM CDT [facility] Reflex Status Culture to follow 08/01/2015 7:45 PM CDT [facility] Urine URINE SPECIMEN OBTAINED BY CLEAN CATCH PROCEDURE / Unknown Collection / Unknown 08/01/2015 7:35 PM CDT 08/01/2015 7:39 PM CDT Hari Niño MD LAB - URINALYSIS ORD ERABLES [facility] [address] [place] [address] * TYPE + SCREEN PANEL (08/01/2015 7:19 PM CDT) [facility] ABO A 08/01/2015 8:23 PM CDT [facility] Rh Type Positive 08/01/2015 8:23 PM CDT [facility] Comment:History check perfor med. Retype required. Antibody Screen Negative 08/01/2015 8:23 PM CDT [facility] Miscellaneous samples (specimen) BLOOD SPECIMEN / Unknown Venipuncture / Unknown 08/01/2015 7:19 PM CDT 08/01/2015 7:22 PM CDT Hari Niño MD LAB - BLOOD BANK ORD ERABLES [facility] [address] * (ABNORMAL) LIPASE BLOOD (08/01/2015 6:50 PM CDT) [facility] Lipase 681(H) 10 - 220 U/L 08/01/2015 7:14 PM CDT [facility] Blood BLOOD SPECIMEN / Unknown Venipuncture / Unknown 08/01/2015 6:50 PM CDT 08/01/2015 6:54 PM CDT Hari Niño MD LAB - CHEMISTRY MORGAN YEE [facility] [address] [place] [address] * (ABNORMAL) COMPREHENSIVE METABOLIC PANEL (08/01/2015 6:50 PM CDT) [facility] Glucose 88 74 - 106 mg/dL 08/01/2015 7:14 PM CDT [facility] Sodium 137 136 - 145 mmol/L 08/01/2015 7:14 PM CDT [facility] Potassium 4.1 3.5 - 5.1 mmol/L 08/01/2015 7:14 PM CDT [facility] Chloride 106 98 - 107 mmol/L 08/01/2015 7:14 PM CDT [facility] CO2 21(L) 22 - 31 mmol/L 08/01/2015 7:14 PM CDT [facility] Calcium 9.3 8.5 - 10.1 mg/dL 08/01/2015 7:14 PM CDT [facility] Anion Gap 10 5 - 20 mmol/L 08/01/2015 7:14 PM CDT [facility] BUN 13 7 - 21 mg/dL 08/01/2015 7:14 PM CDT [facility] Creatinine 0.90 0.50 - 1.30 mg/dL 08/01/2015 7:14 PM CDT [facility] Alkaline Phosphatase 77 38 - 126 U/L 08/01/2015 7:14 PM CDT [facility] ALT 34 12 - 78 U/L 08/01/2015 7:14 PM CDT [facility] AST 13 5 - 40 U/L 08/01/2015 7:14 PM CDT [facility] Protein Total 7.9 6.4 - 8.2 gm/dL 08/01/2015 7:14 PM CDT [facility] Albumin 4.3 3.4 - 5.0 gm/dL 08/01/2015 7:14 PM CDT [facility] Bilirubin Total 0.2 0.2 - 1.0 mg/dL 08/01/2015 7:14 PM CDT [facility] eGFR by MDRD >60 >60 mL/min/1.7 3m2 08/01/2015 7:14 PM CDT [facility] eGFR by MDRD >60 >60 mL/min/1.7 3m2 08/01/2015 7:14 PM CDT [facility] Blood BLOOD SPECIMEN / Unknown Venipuncture / Unknown 08/01/2015 6:50 PM CDT 08/01/2015 6:54 PM CDT Hari Niño MD LAB - CHEMISTRY MORGAN Y[facility] Organization Address City/State/ZIP Co de Phone Number [facility] [address] [place] [address] * (ABNORMAL) CBC W AUTO DIFFERENTIAL (08/01/2015 6:50 PM CDT) [facility] Signature WBC 9.3 4.4 - 10.7 x10E9/L 08/01/2015 6:57 PM CDT [facility] WBC Corrected x10E9/L 08/01/2015 6:57 PM CDT [facility] RBC 5.35(H) 3.80 - 5.20 x10E12/L 08/01/2015 6:57 PM CDT [facility] Hemoglobin 15.1 12.0 - 15.6 gm/dL 08/01/2015 6:57 PM CDT [facility] Hematocrit 44.9 35.9 - 45.5 % 08/01/2015 6:57 PM CDT [facility] MCV 83.9 80.7 - 98.3 fl 08/01/2015 6:57 PM CDT [facility] MCH 28.2 26.7 - 34.0 pg 08/01/2015 6:57 PM CDT [facility] MCHC 33.6 30.8 - 35.9 gm/dL 08/01/2015 6:57 PM CDT [facility] Platelet Count 339 153 - 416 x10E9/L 08/01/2015 6:57 PM CDT [facility] RDW-CV 15.0(H) 12.1 - 14.9 % 08/01/2015 6:57 PM CDT [facility] MPV 8.3(L) 9.4 - 12.9 fl 08/01/2015 6:57 PM CDT [facility] Neutrophils % 54.0 44.0 - 73.0 % 08/01/2015 6:57 PM CDT [facility] Lymphocytes % 36.4 20.0 - 43.0 % 08/01/2015 6:57 PM CDT [facility] Monocytes % 7.1 5.0 - 13.0 % 08/01/2015 6:57 PM CDT [facility] Eosinophils % 1.0 0.0 - 6.0 % 08/01/2015 6:57 PM CDT [facility] Basophils % 1.0 0.0 - 2.0 % 08/01/2015 6:57 PM CDT [facility] Immature Granulocytes 0.5 0 - 1 % 08/01/2015 6:57 PM CDT [facility] Neutrophil Absolute 5.03 2.01 - 7.14 x10E9/L 08/01/2015 6:57 PM CDT [facility] Lymphocytes Absolute 3.39 1.07 - 3.94 x10E9/L 08/01/2015 6:57 PM CDT [facility] Monocytes Absolute 0.66 0.26 - 1.07 x10E9/L 08/01/2015 6:57 PM CDT [facility] Eosinophils Absolute 0.09 0 - 0.47 x10E9/L 08/01/2015 6:57 PM CDT [facility] Basophils Absolute 0.09(H) 0 - 0.08 x10E9/L 08/01/2015 6:57 PM CDT [facility] Immature Granulocytes Absolute 0.05 0.00 - 0.06 x10E9/L 08/01/2015 6:57 PM CDT [facility] nRBC Auto 0 /100 WBC 08/01/2015 6:57 PM CDT [facility] Blood BLOOD SPECIMEN / Unknown Venipuncture / Unknown 08/01/2015 6:50 PM CDT 08/01/2015 6:54 PM CDT Hari Niño MD LAB - HEMATOLOGY ORD ERABLES [facility] [address] [place] [address] documented in this encounter Visit Diagnoses Diagnosis Acute pancreatitis, unspecified pancreatitis type- Primary Abdominal pain, generalized Pancreatitis, unspecified pancreatitis type (HCC) Diarrhea Diagnosis unknown Other unknown and unspecified cause of morbidity or mortality documented in this encounter Administered Medications Inactive Administered Medications - up to 3 most recent administrations Medication Order MAR Action Action Date Dose Rate Site 0.9% NaCl infusion at 250 mL/hr, Intravenous, CONTINUOUS, Starting on Sat08/01/15 at 1930, Until Sat08/02/15 at 0246 $ New Bag/Syringe 08/01/2015 8:00 PM CDT 1,000 mL 250 mL/hr 0.9% NaCl infusion at 100 mL/hr, Intravenous, CONTINUOUS, Starting on Sat08/02/15 at 0200, Until Sat08/02/15 at 0916 $ New Bag/Syringe 08/02/2015 2:30 AM CDT 100 mL/hr 100 mL/hr Left Arm 0.9% NaCl infusion at 100 mL/hr, Intravenous, CONTINUOUS, Starting on Sat08/02/15 at 1145, Until Sat08/05/15 at 1459 $ New Bag/Syringe 08/05/2015 6:51 AM CDT 100 mL/hr $ New Bag/Syringe 08/04/2015 8:54 PM CDT 100 mL /hr $ New Bag/Syringe 08/04/2015 11:14 AM CDT 100 m L/hr 0.9% NaCl infusion at 20 mL/hr, Intravenous, CONTINUOUS, Starting on Sat08/03/15 at 0730, Until Sat08/03/15 at 0846, Pre-procedure (GI) $ New Bag/Syringe 08/03/2015 7:00 AM CDT 20 mL/hr 0.9% NaCl IV Bolus 1,000 mL, Administer over 31 Minutes, ONCE, 1 dose, On Sat08/01/15 at 1930 $ Given 08/01/2015 7:21 PM CDT 1,000 mL okkehfwbjy-vzzjpxjafxeco-ggt feine (FIORICET) 50-325-40 MG tablet 1 Tab 1 tablet, Oral, EVERY 4 HOURS PRN, Headache, Starting on Sat08/02/15 at 1019, Until Sat08/05/15 at 1459, Do not exceed 6 tablets in 24 hours $ Given 08/02/2015 10:47 AM CDT 1 tablet DULoxetine (CYMBALTA) capsule 60 mg 60 mg, Oral, DAILY, First dose on Sat08/02/15 at 1100, Until Discontinued $ Given 08/05/2015 8:02 AM CDT 60 mg $ Given 08/04/2015 11:16 AM CDT 60 mg $ Given 08/03/2015 9:12 AM CDT 60 mg heparin injection 5,000 Units 5,000 Units, Subcutaneous, EVERY 8 HOURS, First dose on Sat08/03/15 at 1400, Until Discontinued $ Given 08/05/2015 5:21 AM CDT 5,000 Units Abdominal Tissue $ Given 08/04/2015 8:54 PM CDT 5,000 Units A bdominal Tissue $ Given 08/04/2015 2:18 PM CDT 5,000 Units A bdominal Tissue hydrocodone-acetaminophen (NORCO) 5-325 MG tablet 2 Tab 2 tablet, Oral, EVERY 4 HOURS PRN, Moderate Pain, Starting on Sat08/02/15 at 0157, Until Sat08/03/15 at 1344, Maximum allowable amount = 4 Grams / 24 hours. $ Given During Downtime 08/03/2015 2:05 AM CDT 2 tablets $ Given 08/02/2015 4:38 PM CDT 2 tablets HYDROmorphone (DILAUDID) injection 0.6 mg 0.6 mg, Intravenous, EVERY 4 HOURS PRN, Severe Pain, Starting on Sat08/03/15 at 1345, Until Sat08/05/15 at 1459, Any ordered dose for greater than 1mg IV push of HYDROmorphone should be given incrementally $ Given 08/05/2015 5:21 AM CDT 0.6 mg $ Given 08/05/2015 1:25 AM CDT 0.6 mg $ Given 08/04/2015 9:32 PM CDT 0.6 mg HYDROmorphone (DILAUDID) injection 1 mg 1 mg, Intravenous, NOW, 1 dose, On Sat08/01/15 at 2045, Any ordered dose for greater than 1mg IV push of HYDROmorphone should be given incrementally $ Given 08/01/2015 8:51 PM CDT 1 mg HYDROmorphone (DILAUDID) injection 1 mg 1 mg, Intravenous, NOW, 1 dose, On Sat08/01/15 at 2230, Any ordered dose for greater than 1mg IV push of HYDROmorphone should be given incrementally $ Given 08/01/2015 10:38 PM CDT 1 mg HYDROmorphone (DILAUDID) injection 1 mg 1 mg, Intravenous, EVERY 1 HOUR PRN, Severe Pain, Starting on Sat08/02/15 at 0157, Until Sat08/02/15 at 0251, For severe pain (pain scale score of 7-10) $ Given 08/02/2015 2:48 AM CDT 1 mg HYDROmorphone (DILAUDID) injection 1 mg 1 mg, Intravenous, EVERY 3 HOURS PRN, Severe Pain, Starting on Sat08/02/15 at 0251, Until Sat08/03/15 at 1344, Any ordered dose for greater than 1mg IV push of HYDROmorphone should be given incrementally $ Given 08/03/2015 12:14 PM CDT 1 mg $ Given 08/03/2015 9:12 AM CDT 1 mg $ Given 08/03/2015 5:01 AM CDT 1 mg hyoscyamine (disintergrating) (NULEV) tablet 0.125 mg 0.125 mg, Oral, EVERY 3 HOURS PRN, abd pain, Starting on Sat08/04/15 at 1210, Until Sat08/05/15 at 1459, This product maybe chewed, swallowed or used sublingually. $ Given 08/05/2015 1:25 AM CDT 0.125 mg $ Given 08/04/2015 5:05 PM CDT 0.125 mg iohexol (OMNIPAQUE 350) contrast Intravenous, CONTRAST ONCE, Starting on Sat08/01/15 at 2025, Until Sat08/03/15 at 2024 $ Given - Contrast 08/01/2015 8:26 PM CDT 100 m L morphine injection 4 mg 4 mg, Intravenous, NOW, 1 dose, On Sat08/01/15 at 1915 $ Given 08/01/2015 7:26 PM CDT 4 mg morphine injection 4 mg 4 mg, Intravenous, NOW, 1 dose, On Sat08/01/15 at 2000 $ Given 08/01/2015 8:02 PM CDT 4 mg ondansetron (ZOFRAN) injection 4 mg 4 mg, Intravenous, NOW, 1 dose, On Sat08/01/15 at 1915 $ Given 08/01/2015 7:23 PM CDT 4 mg ondansetron (ZOFRAN) injection 4 mg 4 mg, Intravenous, EVERY 4 HOURS PRN, Nausea/Vomiting, Starting on Sat08/02/15 at 0157, Until Sat08/05/15 at 1459 $ Given 08/04/2015 11:14 AM CDT 4 mg $ Given 08/02/2015 3:14 AM CDT 4 mg Le ft Arm oxyCODONE-acetaminophen (PERCOCET) 5-325 MG tablet 1-2 Tab 1-2 tablet, Oral, EVERY 4 HOURS PRN, Moderate Pain, Severe Pain, 1 tab moderate, 2 tab severe, Starting on Sat08/03/15 at 1343, Until Sat08/05/15 at 1459 $ Given 08/05/2015 10:20 AM CDT 2 tablets $ Given 08/05/2015 6:51 AM CDT 2 tablets $ Given 08/05/2015 3:03 AM CDT 2 tablets pantoprazole (PROTONIX) injection 40 mg 40 mg, Intravenous, 2 TIMES DAILY, First dose on Sat08/02/15 at 1230, Until Discontinued, Reconstitute vial with 10 mL of 0.9% NaCL to a final concentration 4 mg/mL. Adminster prescribed dose over at least 2min. $ Given 08/02/2015 9:47 PM CDT 40 mg $ Given 08/02/2015 12:30 PM CDT 40 mg pantoprazole (PROTONIX) injection 40 mg 40 mg, Intravenous, 2 TIMES DAILY, First dose on Sat08/03/15 at 1000, Until Discontinued, Reconstitute vial with 10 mL of 0.9% NaCL to a final concentration 4 mg/mL. Adminster prescribed dose over at least 2min. $ Given 08/03/2015 8:19 PM CDT 40 mg $ Given 08/03/2015 9:11 AM CDT 40 mg pantoprazole EC (PROTONIX) tablet 40 mg 40 mg, Oral, DAILY, First dose on Sat08/04/15 at 0945, Until Discontinued, Do not crush, chew, or cut in half. $ Given 08/05/2015 8:03 AM CDT 40 mg $ Given 08/04/2015 11:16 AM CDT 40 mg polyethylene glycol (GoLYTELY) solution 2,000 mL 2,000 mL (2 L), Oral, ONCE, 1 dose, On Sat08/03/15 at 1800 $ Given 08/03/2015 4:43 PM CDT 2,000 mL polyethylene glycol (GoLYTELY) solution 2,000 mL 2,000 mL (2 L), Oral, ONCE, 1 dose, On Sat08/04/15 at 0430 $ Given 08/04/2015 4:32 AM CDT 2,000 mL sucralfate (CARAFATE) suspension 1 g 1 g, Oral, 4 TIMES DAILY - BEFORE MEALS AND AT BEDTIME, First dose on Sat08/02/15 at 1145, Until Discontinued, Shake well before using. $ Given 08/03/2015 8:19 PM CDT 1 g $ Given 08/03/2015 4:42 PM CDT 1 g $ Given 08/03/2015 12:13 PM CDT 1 g documented in this encounter Active and Recently Administered Medications Times are shown in CDT. Scheduled Medication Order 08/03/2015 08/04/2015 08/05/2015 DULoxetine (CYMBALTA) capsule 60 mg (CANCELED) 60 mg, Oral, DAILY, First dose on Sat08/02/15 at 1100, Until Discontinued 0912 ($ Given - Provider: Diana Hickey RN) 1116 ($ Given - Provider: Janina Espinoza RN) 0802 ($ Given - Provider: Sindi Packer, RN) heparin injection 5,000 Units (CANCELED) 5,000 Units, Subcutaneous, EVERY 8 HOURS, First dose on Sat08/03/15 at 1400, Until Discontinued 1452 ($ Given - Provider: Diana Hickey RN)2143 ($ Given - Provider: Maria C Crocker, ANTHONY) 0600 (Not Administered - Provider: Maria C Crocker RN - Reason: Procedural Hold)1418 ($ Given - Provider: Janina Espinoza RN)2054 ($ Given - Provider: Ghazala Deleon APRN-IT TRAINER) 0521 ($ Given - Provider: Ghazala Deleon APRN-NOEMY) pantoprazole (PROTONIX) injection 40 mg (CANCELED) 40 mg, Intravenous, 2 TIMES DAILY, First dose on Sat08/03/15 at 1000, Until Discontinued, Reconstitute vial with 10 mL of 0.9% NaCL to a final concentration 4 mg/mL. Adminster prescribed dose over at least 2min. 0911 ($ Given - Provider: Diana Hickey RN)2019 ($ Given - Provider: Maria C Crocker RN) 0900 (Not Administered - Provider: Janina Espinoza RN - Reason: Discontinued by physician) pantoprazole EC (PROTONIX) tablet 40 mg (CANCELED) 40 mg, Oral, DAILY, First dose on Sat08/04/15 at 0945, Until Discontinued, Do not crush, chew, or cut in half. 1116 ($ Given - Provider: Janina Espinoza RN) 0803 ($ Given - Provider: Sindi Packer, RN) polyethylene glycol (GoLYTELY) solution 2,000 mL (COMPLETED) 2,000 mL (2 L), Oral, ONCE, 1 dose, On Sat08/03/15 at 1800 1643 ($ Given - Provider: Diana Hickey RN) polyethylene glycol (GoLYTELY) solution 2,000 mL (COMPLETED) 2,000 mL (2 L), Oral, ONCE, 1 dose, On Sat08/04/15 at 0430 0432 ($ Given - Provider: Maria C Crocker RN) sucralfate (CARAFATE) suspension 1 g (CANCELED) 1 g, Oral, 4 TIMES DAILY - BEFORE MEALS AND AT BEDTIME, First dose on Sat08/02/15 at 1145, Until Discontinued, Shake well before using. 0911 ($ Given - Provider: Diana Hickey, RN)1213 ($ Given - Provider: Diana Hickey, RN)1642 ($ Given - Provider: Diana Hickey, RN)2019 ($ Given - Provider: Maria C Crocker, ANTHONY) 0800 (Not Administered - Provider: Janina Espinoza RN - Reason: Discontinued by physician) Continuous Medication Order 08/03/2015 08/04/2015 08/05/2015 0.9% NaCl infusion (CANCELED) at 100 mL/hr, Intravenous, CONTINUOUS, Starting on Sat08/02/15 at 1145, Until Sat08/05/15 at 1459 0032 ($ New Bag/Syringe - Provider: Chari Fontenot RN)2300 (Restarted - Provider: Maria C Crocker RN) 0932 (Anesthesia Volume Adjustment - Provider: Hari Guillory APRN-ELECTRIC METER SETTER)1114 ($ New Bag/Syringe - Provider: Janina Espinoza RN)2054 ($ New Bag/Syringe - Provider: Ghazala Deleon APRN-IT TRAINER) 0651 ($ New Bag/Syringe - Provider: Ghazala Deleon APRN-IT TRAINER) 0.9% NaCl infusion (CANCELED) at 20 mL/hr, Intravenous, CONTINUOUS, Starting on Sat08/03/15 at 0730, Until Sat08/03/15 at 0846, Pre-procedure (GI) 0700 ($ New Bag/Syringe - Provider: Peg Lorenzana RN)0754 (Anesthesia Volume Adjustment - Provider: Brionna Fournier APRN-ELECTRIC METER SETTER) PRN Medication Order 08/03/2015 08/04/2015 08/05/2015 ALPRAZolam (XANAX) tablet 0.25 mg 0.25 mg, Oral, 3 TIMES DAILY PRN, Anxiety, Starting on Sat08/05/15 at 1058, Until Sat08/05/15 at 1459 butalbital-acetaminophen -caffeine (FIORICET) 50-325-40 MG tablet 1 Tab 1 tablet, Oral, EVERY 4 HOURS PRN, Headache, Starting on Sat08/02/15 at 1019, Until Sat08/05/15 at 1459, Do not exceed 6 tablets in 24 hours hydrocodone-acetaminophe n (NORCO) 5-325 MG tablet 2 Tab (CANCELED) 2 tablet, Oral, EVERY 4 HOURS PRN, Moderate Pain, Starting on Sat08/02/15 at 0157, Until Sat08/03/15 at 1344, Maximum allowable amount = 4 Grams / 24 hours. 0205 ($ Given During Downtime - Provider: Chari Fontenot RN) HYDROmorphone (DILAUDID) injection 0.6 mg (CANCELED) 0.6 mg, Intravenous, EVERY 4 HOURS PRN, Severe Pain, Starting on Sat08/03/15 at 1345, Until Sat08/05/15 at 1459, Any ordered dose for greater than 1mg IV push of HYDROmorphone should be given incrementally 1645 ($ Given - Provider: Diana Hickey RN)2057 ($ Given - Provider: Maria C Crocker RN) 0417 ($ Given - Provider: Maria C Crocker RN)1106 ($ Given - Provider: Janina Espinoza RN)1705 ($ Given - Provider: Janina Espinoza RN)1737 ($ Given - Provider: Janina Espinoza RN - Comment: previous dose leaked out of the iv while it was given, ok to give again per Dr Hinton)2132 ($ Given - Provider: Ghazala Deleon APRN-NOEMY) 0125 ($ Given - Provider: Ghazala Deleon APRN-NOEMY)0521 ($ Given - Provider: Ghazala Deleon APRN-NOEMY) HYDROmorphone (DILAUDID) injection 1 mg (CANCELED) 1 mg, Intravenous, EVERY 3 HOURS PRN, Severe Pain, Starting on Sat08/02/15 at 0251, Until Sat08/03/15 at 1344, Any ordered dose for greater than 1mg IV push of HYDROmorphone should be given incrementally 0501 ($ Given - Provider: Chari Fontenot RN)0912 ($ Given - Provider: Diana Hickey RN)1214 ($ Given - Provider: Diana Hickey RN) hyoscyamine (disintergrating) (NULEV) tablet 0.125 mg 0.125 mg, Oral, EVERY 3 HOURS PRN, abd pain, Starting on Leydi 08/04/15 at 1210, Until Sat08/05/15 at 1459, This product maybe chewed, swallowed or used sublingually. 1705 ($ Given - Provider: Janina Espinoza RN) 0125 ($ Given - Provider: Ghazala Deleon APRN-NOEMY) ondansetron (ZOFRAN) injection 4 mg (CANCELED) 4 mg, Intravenous, EVERY 4 HOURS PRN, Nausea/Vomiting, Starting on 08/02/15 at 0157, Until Sat08/05/15 at 1459 1114 ($ Given - Provider: Janina Espinoza RN) oxyCODONE-acetaminophen (PERCOCET) 5-325 MG tablet 1-2 Tab (CANCELED) 1-2 tablet, Oral, EVERY 4 HOURS PRN, Moderate Pain, Severe Pain, 1 tab moderate, 2 tab severe, Starting on 08/03/15 at 1343, Until Sat08/05/15 at 1459 1453 ($ Given - Provider: Diana Hickey RN)1911 ($ Given - Provider: Diana Hickey RN) 0641 ($ Given - Provider: Maria C Crocker RN)1419 ($ Given - Provider: Janina Espinoza RN)2054 ($ Given - Provider: Ghazala Deleon APRN-NOEMY) 0303 ($ Given - Provider: Sofia Marks RN)0651 ($ Given - Provider: Ghazala Deleon APRN-IT TRAINER)1020 ($ Given - Provider: Sindi Packer RN - Comment: loss if iv unable to give ivp pain med.) documented in this encounter Care Teams Vendor Management Specialist Relationship Specialty Start Date End Date Jonathan Hartman, RN Nutrition Teacher 07/14/15 documented as of this encounter
--- OUTSIDE RECORDS SUMMARY | 2024-04-29 19:20 | XMS_ITS | Encounter Summary ---
Author Organization [facility] Address [address] [address] Care Team Providers Care Land Reclamation Specialist Name Role Phone Jonathan Hartman RN Unavailable [phone] Reason for Visit * Reason Onset Date Comments Pain Abdominal 10/31/2015 patient seen in [facility] ED on 10/23 - questionable diverticulosis/diverticulitis. PCP will send copy of CT scan and Dr. Corona will advise on next visit. Encounter Details Date Type Department Care Team (Late st Contact Info) Description 10/31/2015 Telephone [facility] [address] [address] Armando Corona MD [facility] [address] [address] Pain Abdominal (patient seen in [facility] ED on 10/23 - questionable diverticulosis/divertic ulitis. PCP will send copy of CT scan and Dr. Corona will advise on next visit.) Social History Tobacco Use Types Packs/Day Years [...] No 08/04/2015 documented as of this encounter Miscellaneous Notes * Telephone Encounter - Prerna Salcedo - 11/03/2015 1:51 PM CDT Patient came to office today with CT Scan results from [facility]. Per patient's sharepoint manager, she will be seeing a specialist at [facility], Dr. Mayo and a specialist in [place] for her recent diagnosis of Meredith Danlos. Dr. Corona will review CT results and we will schedule patient for office appointment. documented in this encounter Plan of Treatment Not on file documented as of this encounter Visit Diagnoses Not on filedocumented in this encounter Care Teams Land Reclamation Specialist Relationship Specialty Start Date End Date Jonathan aHrtman, RN Game Trapper 07/14/15 documented as of this encounter
--- OUTSIDE RECORDS SUMMARY | 2024-04-29 19:20 | XMS_ITS | Encounter Summary ---
Author Organization [facility] Address [address] [place] [address] Care Team Providers Care Multicultural Manager Name Role Phone Jonathan Hartman Rhett RN Unavailable [phone] Encounter Details Date Type Department Care Team (Late st Contact Info) Description 09/15/2015 Orders Only [facility] - GI [address] [place] [address] [phone] Armando Corona MD [address] [place] [phone] Constipation, unspecified constipation type Social History Tobacco Use Types Packs/Day [...] No 08/04/2015 documented as of this encounter Plan of Treatment Not on file documented as of this encounter Visit Diagnoses Diagnosis Constipation, unspecified constipation type- Primary documented in this encounter Care Teams Multicultural Manager Relationship Specialty Start Date End Date Jonathan Hartman RN Continuous Crusher Operator 07/14/15 documented as of this encounter
--- OUTSIDE RECORDS SUMMARY | 2024-04-29 19:20 | XMS_ITS | Encounter Summary ---
Author Organization [facility] Address [address] [place] [address] Care Team Providers Care Ferryboat Operator Cable Name Role Phone Jonathan Hartman RN Unavailable Reason for Visit * Reason Comments Follow-up abd pain; alt bowel habits, epigastric pain and lower abd pain Encounter Details Date Type Department Care Team (Late st Contact Info) Description 08/23/2015 9:40 AM CDT Office Visit [facility] - [address] [address] Armando Corona MD [address] [place] [phone] Constipation, unspecified constipation type (Primary Dx); 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 diarrhea Social History Tobacco Use Types Packs/Day Years [...] Sign Reading Time Taken Comments Blood Pressure 122/78 08/23/2015 8:44 AM CDT Pulse - - Temperature - - Respiratory Rate - - Oxygen Saturation - - Inhaled Oxygen Concentration - - Weight 79.4 kg (175 lb) 08/23/2015 8:44 AM CDT Height 167.6 cm (5' 6 ) 08/23/2015 8:44 AM CDT Body Mass Index 28.25 08/23/2015 8:44 AM CDT documented in this encounter Functional [...] this encounter Patient Instructions * Patient Instructions* Shantell Bonner MA - 08/23/2015 8:47 AM CDT miralax twice daily Senna daily Hyoscyamine as needed If diarrhea (and only diarrhea), then stop miralax for a day, then resume at once-daily the day after During your visit, we noted a difference between the dose and/or dosing frequency of one of the following medication(s) documented in your record and the way you report that it is being taken. Pleasecontact the prescribing physician to verify the correct dose and instructions for the following: documented in this encounter Progress Notes * Armando Corona MD - 08/23/2015 9:16 AM CDT GASTROENTEROLOGY CLINIC PROGRESS NOTE INTERVAL CHANGES / subjective: ? F/u functional abd pain, constipation Wt Readings from Last 3 Encounters: 08/23/15 79.379 kg (175 lb) 08/12/15 76.658 kg (169 lb) 08/02/15 80.65 kg (177 lb 12.8 oz) No post prandial pain (+)hard / watery stools alternating -- abd pain improves sometimes Medications: Current Outpatient Prescriptions Medication Sig Dispense Refill ??? amoxicillin-clavulanate (AUGMENTIN) 500-125 MG tablet Take 1 Tab by mouth 3 times daily with meals for 14 days 42 Tab 0 ??? hyoscyamine, disintergrating, (NULEV) 0.125 MG tablet Take 1 Tab by mouth every 3 hours as needed (abd pain) 30 Tab 0 ??? pantoprazole EC (PROTONIX) 40 MG tablet Take 1 Tab by mouth 2 times daily,before breakfast and supper 60 Tab 1 ??? loperamide (IMODIUM) 2 MG capsule Take 1 Cap by mouth 4 times daily as needed for Diarrhea 30 Cap 0 ??? Other 6 mg by Injection route as needed (Imitrex 6m g IM - Inject at onset of migraine, then asdirected PRN) ??? DULoxetine (CYMBALTA) 60 MG capsule Take 60 mg by mouth once daily ??? diazepam (VALIUM) 5 MG tablet Take 1 Tab by mouth 3 times daily as needed for Spasms (Patient not taking: Reported on 08/23/2015) 8 Tab 0 ??? oxyCODONE-acetaminophen (PERCOCET) 5-325 MG tablet Take 1 Tab by mouth every 4 hours as needed (Patient not taking: Reported on 08/23/2015) 30 Tab 0 ??? fdtjembmlv-kypncfmcetgux-cnrvgthw (FIORICET) 50-325-40 MG tablet Take 1 Tab by mouth every 4 hours as needed for Headache (Patient not taking: Reported on 08/23/2015) 30 Tab 0 ? ? sucralfate (CARAFATE) 1 GM/10ML suspension Take 10 mL by mouth 4 times daily - before meals & nightly (Patient not taking: Reported on 08/23/2015) 420 mL 1 No current facility-administered medications for this visit. Exam: Wt Readings from Last 4 Encounters: 08/23/15 79.379 kg (175 lb) 08/12/15 76.658 kg (169 lb) 08/02/15 80.65 kg (177 lb 12.8 oz) 07/13/15 80.74 kg (178 lb) BP 122/78 mmHg Wt 79.379 kg (175 lb) BMI 28.26 kg/m2 Body mass index is 28.26 kg/(m^2). Gen: In no acute distress, appears stated age. HEENT: Anicteric sclera, Oral mucosa, lips and tongue appear normal. Normal dentition. Neck: Supple, no JVD, no masses, No lymphadenopathy Lungs: CTAB. No dullness. No wheezes. No rales Heart:RRR, normal S1 and S2, no murmurs or extra heart sounds appreciated Abdomen: Soft, Non-tender, Not distended, No kaylene ascites, Bowel sounds are normal, No masses or hepatosplenomegaly Ext: No edema, No cyanosis, No clubbing Musculoskeletal: Ambulates, No joint redness, tenderness Neurologic: Grossly nonfocal. Motor 5/5. No sensory deficits. CN grossly intact. A&Ox3 Psych: Appropriate affect, mood, and thought processes. No evidence of hallucination or delirium. ? Labs Lab Results Component Value Date WBC 9.5 08/12/2015 HGB 14.3 08/12/2015 HCT 43.5 08/12/2015 MCV 85.3 08/12/2015 Lab Results Component Value Date CO2 24 08/12/2015 BUN 9 08/12/2015 CALCIUM 9.1 08/12/2015 Lab Results Component Value Date ALKPHOS 85 08/12/2015 AST 44* 08/12/2015 ALT 77 08/12/2015 ALBUMIN 4.0 08/12/2015 Recent Labs Component Name 08/12/15192808/05/15 0709 08/04/15 1116 08/02/15 1002 08/01/15 1850 WBC 9.5 4.4 - - 9.3 HGB 14.3 12.5 12.6 12.3 15.1 HCT 43.5 38.4 - 37.6 44.9 PLTCOUNT 301 232 - - 339 Recent Labs Component Name 08/12/151928 SODIUM 135* POTASSIUM 3.8 CHLORIDE 106 CO2 24 BUN 9 CREATININE 0.92 GLUCOSE 87 CALCIUM 9.1 ALBUMIN 4.0 ALKPHOS 85 ALT 77 AST 44* TBIL 0.2 TPROT 7.9 EGFR >60 Recent Labs Component Name 08/12/15192808/03/15 0414 08/01/15 1850 SODIUM 135* 141 137 POTASSIUM 3.8 4.0 4.1 CHLORIDE 106 107 106 CO2 24 25 21* BUN 9 6* 13 CREATININE 0.92 0.70 0.90 GLUCOSE 87 83 88 CALCIUM 9.1 8.3* 9.3 Recent Labs Component Name 08/12/15192808/01/15 1850 07/13/15 1713 ALBUMIN 4.0 4.3 4.5 ALKPHOS 85 77 94 ALT 77 34 35 AST 44* 13 11 TBIL 0.2 0.2 0.7 TPROT 7.9 7.9 8.9* Recent Labs Component Name 08/12/15 1929 INR 1.0 No results for input(s): AMYLASE in the last 65361 hours. Recent Labs Component Name 08/01/15 1850 [...] otherwise normal on direct and ?retroflexion views. Data Stool cx neg 08/04/15 Cduff GDH/tx neg 07/14/15 Lactoferrin pos 07/14/15 IMPRESSION Madalyn Walton is a 40 y.o. with * Abd pain functional with constipation component (IBS-C vs CIC) * Prior NSAID use * pos lactoferrin 06/2015 * Comorbidities: depression, arthritis, diverticulitis early 2016 RECS Miralax 17g BID Senna QD Cont PRN hyoscyamine (helpful so far) Protonix to QAM only, timing advised If not better and still symptomatic would consider lower endoscopic eval with bx next Stress relieving measures Thank you for allowing me to participate in the care of your patient. Do not hesitate to contact meif you have further questions. Armando Corona MD [facility], Gastroenterology [facility] office: [phone] Exchange: [phone] documented in this encounter Plan of Treatment Not on file documented as of this encounter Visit Diagnoses Diagnosis Constipation, unspecified constipation type- Primary 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 diarrhea 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 syndrome documented in this encounter Care Teams Ferryboat Operator Cable Relationship Specialty Start Date End Date Jonathan Hartman RN Deputy Commissioner 07/14/15 documented as of this encounter
--- OUTSIDE RECORDS SUMMARY | 2024-04-29 19:20 | XMS_ITS | Encounter Summary ---
Author Organization [facility] Address [address] [place] [address] Care Team Providers Care Entry Level Truck Driver Name Role Phone Jonathan Hartman Rhett RN Unavailable [phone] Encounter Details Date Type Department Care Team (Late st Contact Info) Description 07/19/2015 Orders Only [facility] Medical [facility] - GI [address] [place] [address] [phone] Armando Corona MD [address] [place] [phone] PUD (peptic ulcer disease) ; Diverticulitis of colon Social History Tobacco Use Types Packs/Day Years [...] or have serious hearing difficult y? No 07/13/2015 Is person blind or have serious difficulty seein g? No 07/13/2015 Does person have serious dif ficulty walking/climbing stairs? No 07/13/2015 Does person have difficulty dressing/bathing? No 07/13/2015 Does person have difficulty doing errands alone? No 07/13/2015 Cognitive Status Response Date of Assessm ent Does person have difficulty concentrating/remembering/making decisions? No 07/13/2015 documented as of this encounter Patient Instructions * Patient Instructions* Rosalba Byrd - 07/19/2015 10:19 AM CDT COLONOSCOPY PREPARATION Please arrive at 8:30am for your procedure which is scheduled at 10:00am, on 08/29/15. Please register at: [facility] Endoscopy Department (ground floor East Entrance) [address] [place] [address] FIRST STEPS: Notify us if you are diabetic or have an artificial heart valve, G6PD deficiency or an artificial knee or hip replacement within the last year. If you are taking Aspirin, Plavix, Lovenox, Coumadin, Iron tablets call your prescribing doctor or nurse for special instructions. ONE WEEK BEFORE YOUR PROCEDURE you will need to be off any prescription iron medication. 3 DAYS BEFORE YOUR PROCEDURE:stop taking any blood thinners, such as Aspirin, Ibuprofen, Motrin, Advil, Aleve, Naprosyn, Excedrin or Naproxen. BOWEL PREPARATION/CLEANSING INSTRUCTIONS: 2 DAYS BEFORE YOUR PROCEDURE: Take the enclosed prescription to your pharmacy. hotel superintendent the Golytely/Gavalyte bowel prep. Mix the Golytely/Gavalyte according to the instructions on the bottle and place it in the refrigerator so that it is cold (makes it easier to drink). 1 DAY BEFORE YOUR PROCEDURE: Have a clear liquid diet all day for breakfast, lunch and dinner. NO SOLID FOODS! ( Examples: tea, coffee (no cream or milk), soda, Apple juice, white grape juice (no pulp), clear beef/chicken broth,white soda, hard candy, JELLO (NO RED JELLO or juices or popsicles). NOTHING RED OR PURPLE! NO MILK! When in doubt...if you can???t read through it in a glass cup, it is not a clear liquid. If your procedure is scheduled before 12:00 pm (noon), please drink all of the prep starting at 3:00 p.m. and finish it by 7:00 pm. If your procedure time is after 12:00 pm (noon) then follow these instructions: Between 3 to 5 pm, begin drinking the Golytely/gavalyte (8 oz glass every 10-15 minutes) until the large container is HALF WAY empty, then stop. It is best to drink each glass rapidly rather than sipping small amounts. Then put the rest of the prep back into the refrigerator. Your bowel movements should begin about 1-2 hours after your first glass. Nausea and bloating are common side effects and usually do not affect the medication's ability to cleanse your colon. These feelings should improve once you start passing the solution. The next morning, set an alarm 4 hours before your scheduled colonoscopy. At That time, FINISH DRINKING the other half of the Golytley/Gavalyte within a 2 hour period. For example, if you are scheduled to have the procedure at 8 am, then wake up at 4 am and you must FINISH the Golytely by 6 am. YOU MUST COMPLETE ALL STEPS! DO NOT EAT OR DRINK ANYTHING AFTER MIDNIGHT (EXCEPT FOR THE REMAINDER OF YOUR PREP) YOU MAY TAKE ANY NECESSARY MEDICATIONS (HEART, BLOOD PRESSURE, SEIZURE MEDS, ETC.) WITH A SIP OF WATER THE MORNING OF YOUR PROCEDURE. ON THE DAY OF your procedure: 1. BRING A LIST OF YOUR CURRENT MEDICATIONS. 2. BRING SOMEONE TO DRIVE YOU HOME. (The medication you will receive will prevent you from driving or working safely the day of your exam). It is best if your team truck driver can wait during your procedure. There is a comfortable waiting area for their convenience. Thank you for allowing us to participate in your care. If you have any questions regarding this procedure or preparation for it, please call our office [phone] or [phone]. documented in this encounter Progress Notes * Rosalba Byrd - 07/19/2015 10:20 AM CDT Patient called and scheduled egd and colon instruct mailed to pt and rx sent to patient also couldn't locate pharm documented in this encounter Plan of Treatment Not on file documented as of this encounter Visit Diagnoses Diagnosis PUD (peptic ulcer disease)- Primary Peptic ulcer, unspecified site, unspecified as acute or chronic, without mention of hemorrhage, perforation, or obstruction Diverticulitis of colon Diverticulitis of colon (without mention of hemorrhage) documented in this encounter Care Teams Entry Level Truck Driver Relationship Specialty Start Date End Date Jonathan Hartman RN Lift Slab Operator 07/14/15 documented as of this encounter
--- OUTSIDE RECORDS SUMMARY | 2024-04-29 19:20 | XMS_ITS | Encounter Summary ---
Author Organization [facility] Address [address] [place] [address] Care Team Providers Care Qualification Engineer Name Role Phone Jonathan Hartman Rhett RN Unavailable [phone] Reason for Referral * Procedure (Routine) - Closed Specialty Diagnoses / Procedures Referred By Kaylynn phillips Referred To Contact Gastroenterology Diagnoses Abdominal pain, unspecified abdominal location Other constipation Chronic inflammation of colon Procedures ENDOSCOPY, COLON, DIAGNOSTIC Armando Corona MD [address] [place] [phone] [address] Referral ID Status Reason Start Date Expiration Date Visits Re quested Visits Authorized [id number] Closed 11/09/2015 05/07/2016 1 1 Reason for Visit * Reason Comments Establish Care abd pains ? divertic ulosis Encounter Details Date Type Department Care Team (Late st Contact Info) Description 11/09/2015 11:40 AM CDT Office Visit [facility] - [address] [address] Armando Corona MD [address] [place] [phone] Abdominal pain, unspecified abdominal location (Primary Dx); Other constipation; Chronic inflammation of colon Social History Tobacco Use Types [...] Reading Time Taken Comments Blood Pressure 118/84 11/09/2015 11:31 AM CDT Pulse - - Temperature - - Respiratory Rate - - Oxygen Saturation - - Inhaled Oxygen Concentration - - Weight 75.8 kg (167 lb) 11/09/2015 11:31 AM CDT Height 167.6 cm (5' 6 ) 11/09/2015 11:31 AM CDT Body Mass Index 26.95 11/09/2015 11:31 AM CDT documented in this encounter Functional [...] * Patient Instructions* Curtis Garland I - 11/09/2015 11:27 AM CDT During your visit, we noted a difference between the dose and/or dosing frequency of one of the following medication(s) documented in your record and the way you report that it is being taken. Pleasecontact the prescribing physician to verify the correct dose and instructions for the following: documented in this encounter Progress Notes * Armando Corona MD - 11/09/2015 11:28 AM CDT GASTROENTEROLOGY CLINIC PROGRESS NOTE INTERVAL CHANGES / subjective: ? F/u functional abd pain, constipation Abd pain - sharp R quadrant (+)hard / watery stools alternating -- abd pain improves sometimes Constipation -- Linzess very helpful so far -- daily soft brown BM's Hyoscyamine continues to be helpful for her intermittent Recent Dx Cora (hypermobility) Medications: Current Outpatient Prescriptions Medication Sig Dispense [...] times daily as needed for Anxiety ??? topiramate (TOPAMAX) 25 MG tablet Take 25 mg by mouth once daily ??? SUMAtriptan Succinate (IMITREX SC) ??? HYDROcodone-acetaminophen (NORCO) 5-325 MG tablet Take 1 Tab by mouth every 4 hours as needed for Pain 10 Tab 0 ??? polyethylene glycol 3350 (MIRALAX) powder Take 17 g by mouth once daily 238 g 6 ??? senna (SENOKOT) 8.6 MG tablet Take by mouth once daily 0 ??? diazepam (VALIUM) 5 MG tablet Take 1 Tab by mouth 3 times daily as needed for Spasms (Patient not taking: Reported on 08/23/2015) 8 Tab 0 ??? oxyCODONE-acetaminophen (PERCOCET) 5-325 MG tablet Take 1 Tab by mouth every 4 hours as needed (Patient not taking: Reported on 08/23/2015) 30 Tab 0 ??? npljldhulo-jwxcobsltorej-buabotiz (FIORICET) 50-325-40 MG tablet Take 1 Tab by mouth every 4 hours as needed for Headache (Patient not taking: Reported on 08/23/2015) 30 Tab 0 ??? hyoscyamine, disintergrating, (NULEV) 0.125 MG tablet Take 1 Tab by mouth every 3 hours as needed (abd pain) 30 Tab 0 ? ? sucralfate (CARAFATE) 1 GM/10ML suspension Take 10 mL by mouth 4 times daily - before meals & nightly (Patient not taking: Reported on 08/23/2015) 420 mL 1 ??? loperamide (IMODIUM) 2 [...] Exam: Wt Readings from Last 4 Encounters: 08/27/15 79.379 kg (175 lb) 08/23/15 79.379 kg (175 lb) 08/12/15 76.658 kg (169 lb) 08/02/15 80.65 kg (177 lb 12.8 oz) There were no vitals taken for this visit. There is no weight on file to calculate BMI. Gen: In no acute distress, appears stated [...] 08/27/2015 Lab Results Component Value Date CO2 19* 08/27/2015 BUN 12 08/27/2015 CALCIUM 9.2 08/27/2015 Lab Results Component Value Date ALKPHOS 85 08/27/2015 AST 18 08/27/2015 ALT 49 08/27/2015 ALBUMIN 4.1 08/27/2015 Recent Labs Component Name 08/27/15 1811 08/12/15 1929 08/05/15 0709 WBC 8.8 9.5 4.4 HGB 15.2 [...] 9.2 9.1 8.3* Recent Labs Component Name 08/27/15181008/12/15192808/01/15 1850 ALBUMIN 4.1 4.0 4.3 ALKPHOS 85 85 77 ALT 49 77 34 AST 18 44* 13 TBIL 0.3 0.2 0.2 TPROT 8.0 7.9 7.9 Recent Labs Component Name 08/12/151928 INR 1.0 No results for input(s): AMYLASE in the last 56754 hours. Recent Labs Component Name 08/27/15181008/01/15 18507/13/15 1713 LIPASE 264* 681* 411* Prior Imaging: [...] acute intra-abdominal pathology. CT A/P w/o at [place] 10/2015 * bilateral nonobstructing renal stones * [...] with constipation component (IBS-C vs CIC) - improved most on Linzess * Prior gastric ulcers 06/2015 * Prior NSAID use * pos lactoferrin 06/2015 * Recent Dx Rene Hi * Comorbidities: depression, arthritis, diverticulitis early 2015 RECS Cont Linzess Cont PRN hyoscyamine (helpful so far) Protonix to QAM only, timing advised Colonoscopy next Stress relieving measures Thank you for allowing me to participate in the care of your patient. Do not hesitate to contact meif you have further questions. Armando Corona MD [facility], Gastroenterology [facility] office: [phone] Exchange: [phone] documented in this encounter Plan of Treatment Not on file documented as of this encounter Procedures Procedure Name Priority Date/Time Associated Diagnosis Comments ENDOSCOPY, COLON, DIAGNOSTIC Routine 12/15/2015 12:53 PM CDT Abdominal pain, unspecified abdominal location Other constipation Chronic inflammation of colon documented in this encounter Results * ENDOSCOPY, COLON, DIAGNOSTIC (12/15/2015 12:53 PM CDT) Armando Corona MD GI PROCEDURE ORDERAB LES documented in this encounter Visit Diagnoses Diagnosis Abdominal pain, unspecified abdominal location- Primary Other constipation Chronic inflammation of colon Other and unspecified noninfectious gastroenteritis and colitis documented in this encounter Care Teams Qualification Engineer Relationship Specialty Start Date End Date Jonathan Hartman, RN Surgical Nurse 07/14/15 documented as of this encounter
--- OUTSIDE RECORDS SUMMARY | 2024-04-29 19:20 | XMS_ITS | Encounter Summary ---
Author Organization [facility] Address [address] [place] [place] [address] Care Team Providers Care Leather Tanner Name Role Phone Jonathan Hartman Rhett RN Unavailable [phone] Reason for Visit * Reason Comments Pain Abdominal onset yesterday; lef t upper and lower;constant cramping; nausea/diarrhea; hx of diverticulitis, ulcers, kidney stones Pain Flank left sided * Auth/Cert Specialty Diagnoses / Procedures Referred By Contac t Referred To Contact Emergency Room [facility] Emergency Dept [address] [place] [id number] Referral ID Status Reason Start Date Expiration Date Visits Re quested Visits Authorized [id number] 09/28/2015 03/26/2016 1 Encounter Details Date Type Department Care Team (Late st Contact Info) Description 08/27/2015 5:10 PM CDT - 08/27/2015 11:24 PM CDT Emergency ER at [facility] [address] [place] [id number] Colton Caballero MD [address] [place] [address] [place] [address] Chronic abdominal pain (Primary Dx); 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 syndrome with diarrhea; Functional abdominal pain syndrome; Diverticulitis of colon; Gastritis and duodenitis Discharge Disposition: Home or Self Care Social [...] Sign Reading Time Taken Comments Blood Pressure 110/88 08/27/2015 11:20 PM CDT Pulse 91 08/27/2015 11:20 PM CDT Temperature 36.3 ??C (97.4 ??F) 08/27/2015 5:10 PM CD T Respiratory Rate 21 08/27/2015 11:20 PM CDT Oxygen Saturation 98% 08/27/2015 11:20 PM CDT Inhaled Oxygen Concentration - - Weight 79.4 kg (175 lb) 08/27/2015 5:10 PM CDT Height 167.6 cm (5' 6 ) 08/27/2015 5:10 PM CDT Body Mass Index 28.25 08/27/2015 5:10 PM CDT documented in this encounter Functional [...] 08/04/2015 documented as of this encounter Discharge Instructions * Discharge Instructions* Colton Caballero MD - 08/27/2015 10:57 PM CDT Images from the original note were not included. Chronic Back Pain When back pain lasts longer than 3 months, it is called chronic back pain.??People with chronic back pain often go through certain periods that are more intense (flare-ups). CAUSES Chronic back pain can be caused by wear and tear (degeneration) on different structures in your back. These structures include: ?? The bones of your spine (vertebrae) and the joints surrounding your spinal cord and nerve roots (facets). ?? The strong, fibrous tissues that connect your vertebrae (ligaments). Degeneration of these structures may result in pressure on your nerves. This can lead to constant pain. HOME CARE INSTRUCTIONS ?? Avoid bending, heavy lifting, prolonged sitting, and activities which make the problem worse. ?? Take brief periods of rest throughout the day to reduce your pain. Lying down or standing usually is better than sitting while you are resting. ?? Take ehpz-iqg-oakcply or prescription medicines only as directed by your caregiver. SEEK IMMEDIATE MEDICAL CARE IF: ?? You have weakness or numbness in one of your legs or feet. ?? You have trouble controlling your bladder or bowels. ?? You have nausea, vomiting, abdominal pain, shortness of breath, or fainting. Document Released: 05/16/2005 Document Revised: 06/30/2012 Document Reviewed: 03/22/2012 ExitCare?? Patient Information ??2013 [employer] DSP. documented in this encounter Medications at Time [...] 08/05/2015 ALPRAZolam (XANAX) 0.25 MG tablet Take 0.25 mg by mouth 3 times daily as needed for Anxiety Reported on 07/03/2016 01/29/2017 butalbital-acetaminophen -caffeine (FIORICET) 50-325-40 MG tablet Take 1 Tab by mouth every 4 hours as needed for Headache 30 Tab 0 08/05/2015 11/18/2015 diazepam (VALIUM) 5 MG tablet Take 1 Tab by mouth 3 times daily as needed for Spasms 8 Tab 0 08/13/2015 11/18/2015 HYDROcodone-acetaminophe n (NORCO) 5-325 MG tablet Take 1 Tab by mouth every 4 hours as needed for Pain 10 Tab 0 08/27/2015 11/18/2015 loperamide (IMODIUM) 2 MG capsule Take [...] and supper 60 Tab 1 07/16/2015 09/29/2015 polyethylene glycol 3350 (MIRALAX) powderIndications:Consti pation, unspecified constipation type Take 17 g by mouth once daily 238 g 6 08/23/2015 11/18/2015 senna (SENOKOT) 8.6 MG tabletIndications:Consti pation, unspecified constipation type Take by mouth once daily 0 08/23/2015 11/18/2015 sucralfate (CARAFATE) 1 GM/10ML suspension Take 10 mL by mouth 4 times daily - before meals & nightly 420 mL 1 07/16/2015 04/25/2016 SUMAtriptan Succinate (IMITREX SC) 11/18/2015 topiramate (TOPAMAX) 25 MG tablet Take 25 mg by mouth once daily 11/18/2015 documented as of this encounter ED Notes * Joseline Espinal RN - 08/27/2015 11:24 PM CDT Patient verbalized understanding of discharge instructions, medications, and follow up care. Ambulatory home with belongings. * Colton Caballero MD - 08/27/2015 8:28 PM CDT Provider contact with the patient: 08/27/2015 20:28 Madalyn Walton [id number] [facility] EMERGENCY DEPARTMENT History Chief Complaint Patient presents with ??? Pain Abdominal onset yesterday; left upper and lower;constant cramping; nausea/diarrhea; hx of diverticulitis, ulcers, kidney stones ??? Pain Flank left sided HPI Comments: 40 yo F w/ hx of functional abd pain, gastritis, diverticulosis p/w abdominal pain worsening over the last 3 days. Especially bad today. Pain primarily in the LLQ, but also in L flank and R flank. Worsened w/ menstruation and is currently on menses. Pt of Dr. Corona's and saw him 3 d ago, but doing well at that time. Recent endoscopy showed gastritis w/o ulceration, and colonoscopy showed diverticulosis. No vomiting, but +nausea. Pain Abdominal The history is provided by the patient. This is a recurrent problem. The problem occurs hourly. Theproblem has been gradually worsening. The pain is associated with eating. The pain is located in the LLQ. The pain is severe. Associated symptoms include nausea.Pertinent negatives include no fever, no diarrhea or no vomiting.Past workup includes GI consult, CT scan, endoscopy and colonoscopy. Past Medical History Diagnosis Date ??? Diverticulitis [...] GASTROINTESTINAL TRACT IMAGING INTRALUMINAL ESOPHAGUS THROUGH ILEUM No family history on file. History Social [...] Systems Review of Systems Constitutional: Negative for fever. HENT: Negative. Eyes: Negative. Respiratory: Negative. Cardiovascular: Negative. Gastrointestinal: Positive for nausea and abdominal pain. Negative for vomiting and diarrhea. Genitourinary: Negative. Musculoskeletal: Negative. Skin: Negative. Neurological: Negative. Endo/Heme/Allergies: Negative. Physical Exam BP 119/75 mmHg Pulse 73 Temp(Src) 97.4 ??F Resp 13 Ht 1.676 m (5' 6 ) Wt 79.379 kg (175 lb) BMI 28.26 kg/m2 SpO2 99% Physical Exam Constitutional: She appears well-developed and well-nourished. She appears distressed. HENT: Head: Normocephalic and atraumatic. Eyes: EOM are normal. Pupils are equal, round, and reactive to light. Neck: Normal range of motion. Neck supple. Cardiovascular: Normal rate and regular rhythm. Pulmonary/Chest: Effort normal and breath sounds normal. Abdominal: There is tenderness. There is guarding. TTP in epigastrium, LLQ, L flank. No distension, no rebound, no guarding in other quadrants. Musculoskeletal: Normal range of motion. She exhibits no edema or tenderness. Neurological: She is alert. Nursing note and vitals reviewed. Medications Current Outpatient Prescriptions Medication Sig Dispense Refill ??? ALPRAZolam (XANAX) 0.25 MG tablet Take [...] Reported on 08/23/2015) 30 Tab 0 ??? ovfkjuoqhy-srrcanellcbct-mhrhiguy (FIORICET) 50-325-40 MG tablet Take 1 Tab [...] mouth once daily Procedures Procedures ECG Interpretation ECG Interpretation Lab Interpretation Normal Labs:normal CBC Amylase:,Lipase:increased, and Liver Function: Oxygen Saturation Interpretation Hospital Encounter on 08/27/15 CBC W AUTO DIFFERENTIAL Result Value Ref Range WBC 8.8 4.4-10.7 x10E9/L WBC Corrected x10E9/L RBC 5.32 (H) 3.80-5.20 x10E12/L Hgb 15.2 12.0-15.6 gm/dL HCT 44.8 35.9-45.5 % MCV 84.2 80.7-98.3 fl MCH 28.6 26.7-34.0 pg MCHC 33.9 30.8-35.9 gm/dL Plt Ct 326 153-416 x10E9/L RDW-CV 14.8 12.1-14.9 % MPV 8.8 (L) 9.4-12.9 fl Neutro 55.4 44.0-73.0 % Lymph 36.4 20.0-43.0 % Providence 6.1 5.0-13.0 % Eos 0.6 0.0-6.0 % Baso 0.9 0.0-2.0 % Immature Grans 0.6 0-1 % Neutro Abs 4.89 2.01-7.14 x10E9/L Lymph Abs 3.21 1.07-3.94 x10E9/L Providence Abs 0.54 0.26-1.07 x10E9/L Eosin Abs 0.05 0-0.47 x10E9/L Baso Abs 0.08 0-0.08 x10E9/L Immature Grans (Abs) 0.05 0.00-0.06 x10E9/L NRBC Auto 0 /100 WBC COMPREHENSIVE METABOLIC PANEL Result Value Ref Range Glucose 83 74-106 mg/dL Sodium 137 136-145 mmol/L Potassium 3.9 3.5-5.1 mmol/L Chloride 109 (H) 98-107 mmol/L CO2 19 (L) 22-31 mmol/L Calcium 9.2 8.5-10.1 mg/dL Anion Gap 9 5-20 mmol/L BUN 12 7-21 mg/dL Creatinine 0.94 0.50-1.30 mg/dL Alk Phos 85 38-126 U/L ALT/SGPT 49 12-78 U/L AST/SGOT 18 5-40 U/L Protein Total 8.0 6.4-8.2 gm/dL Albumin 4.1 3.4-5.0 gm/dL Bili Total 0.3 0.2-1.0 mg/dL eGFR MDRD >60 >60 mL/min/1.73m2 eGFR MDRD AFR AMR >60 >60 mL/min/1.73m2 URINALYSIS ROUTINE W/REFLEX TO CULTURE Result Value Ref Range Color UA Yellow Straw, Yellow, Dark Yellow Clarity UA Clear Specific [place] UA 1.011 1.005-1.030 pH UA 7.0 5.0-8.0 pH Protein UA Negative Negative Blood UA 2+ (Abnormal) Negative Leukocyte UA Trace (Abnormal) Negative Nitrite UA Negative Negative Glucose UA Negative Negative Ketone UA Negative Negative Bili UA Negative Negative Urobilinogen UA 0.2 0.1-1.0 EU/dL WBC UA Auto 2-5 0-2, 2-5 # /hpf RBC UA Auto 5-10 (Abnormal) 0-2, 2-5 # /hpf Epithelial Cell UA Auto 0-2 0-2, 2-5 # /hpf Hyaline Casts UA Auto 2-5 (Abnormal) 0-2 #/lpf Reflex Status Culture to follow LIPASE BLOOD Result Value Ref Range Lipase 264 (H) 10-220 U/L HCG URINE QUALITATIVE - POINT OF CARE (IP) Result Value Ref Range HCG Qual Urine Negative Negative QC Verified Yes Yes No orders to display WELLS Score Progress Notes 08/27/2015 11:08 PM Patient is feeling better and tolerating liquids. Will try bland diet PO challenge and if ok, will discharge w/ GI f/u. 08/27/2015 11:08 PM Feeling better and tolerating crackers. Comfortable with discharge and f/u w/ Dr. Corona next week. She will return for inability to tolerate fluids, bloody diarrhea, fever, or uncontrollable pain. ED Course Medical Decision Making I have interpreted the following results: Labs. 40 yo F w/ chr functional abd pain, diverticulosis and gastritis p/w LLQ pain and tenderness on exam. Ddx: diverticulitis, chronic abd pain, pancreatitis, renal stone. Plan: WBC normal, lipase elevated but actually downtrending from prior. Will try two doses of pain meds and IVF. If still w/ significant pain, will get CT A/P and likely admission. Orders Placed This Encounter ??? CULTURE URINE ??? CBC W AUTO DIFFERENTIAL ??? COMPREHENSIVE METABOLIC PANEL ??? URINALYSIS ROUTINE W/REFLEX TO CULTURE ??? LIPASE BLOOD ??? HCG URINE QUALITATIVE - POINT OF CARE (IP) ??? 0.9% NaCl injection 1-10 mL ??? 0.9% NaCl IV Bolus ??? HYDROmorphone (DILAUDID) injection 0.5 mg ??? prochlorperazine (COMPAZINE) injection 10 mg ??? HYDROmorphone (DILAUDID) 1 mg/ml injection ADS Med ??? 0.9% NaCl infusion ADS Med ??? GI Cocktail ??? HYDROmorphone (DILAUDID) injection 0.25 mg ??? HYDROcodone-acetaminophen (NORCO) 5-325 MG tablet Clinical Impression Final diagnoses: Chronic abdominal pain (Primary) 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 syndrome with diarrhea Functional abdominal pain syndrome Diverticulitis of colon Gastritis and duodenitis * Mary Garrett RN - 08/27/2015 7:17 PM CDT Report given to robert CRUZ * Mary Garrett RN - 08/27/2015 6:20 PM CDT Pt came to ED via home c/o pain in right flank area and abdominal area starting x 3 days ago. Pt states had nausea and vomiting x 2 days ago and now having diarrhea today , x 5, Pt is tender in LUQ and LLQ, bowel sounds active, pt alert and oriented x 4, currently on menstraul, cycle hx of kidney stones, states pain is dull all over but once and awhile has sharp shooting pain. Bowel sounds activein all quadrants. documented in this encounter Plan of Treatment Not on file documented as of this encounter Procedures Procedure Name Priority Date/Time Associated Diagnosis Comments CBC W AUTO DIFFERENTIAL STAT 08/27/2015 6:11 PM CDT COMPREHENSIVE METABOLIC PANEL STAT 08/27/2015 6:11 PM CDT LIPASE BLOOD Add on 08/27/2015 6:11 PM CDT URINALYSIS REFLEX MICROSCOPIC REFLEX CULTURE STAT 08/27/2015 5:51 PM CDT HCG URINE QUALITATIVE - POINT OF CARE STAT 08/27/2015 5:51 PM CDT CULTURE URINE STAT 08/27/2015 5:51 PM CDT documented in this encounter Results * (ABNORMAL) LIPASE BLOOD (08/27/2015 6:11 PM CDT) Lipase 264(H) 10 - 220 U/L 08/27/2015 7:11 PM CDT [facility] Blood BLOOD SPECIMEN / Unknown Venipuncture / Unknown 08/27/2015 6:11 PM CDT 08/27/2015 6:14 PM CDT Colton Caballero MD LAB - CHEMISTRY ORDERABLES [facility] [address] [place] [address] * (ABNORMAL) COMPREHENSIVE METABOLIC PANEL (08/27/2015 6:11 PM CDT) Glucose 83 74 - 106 mg/dL 08/27/2015 6:31 PM CDT [facility] Sodium 137 136 - 145 mmol/L 08/27/2015 6:31 PM CDT [facility] Potassium 3.9 3.5 - 5.1 mmol/L 08/27/2015 6:31 PM CDT [facility] Chloride 109(H) 98 - 107 mmol/L 08/27/2015 6:31 PM CDT [facility] CO2 19(L) 22 - 31 mmol/L 08/27/2015 6:31 PM CDT [facility] Calcium 9.2 8.5 - 10.1 mg/dL 08/27/2015 6:31 PM CDT [facility] Anion Gap 9 5 - 20 mmol/L 08/27/2015 6:31 PM CDT [facility] BUN 12 7 - 21 mg/dL 08/27/2015 6:31 PM CDT [facility] Creatinine 0.94 0.50 - 1.30 mg/dL 08/27/2015 6:31 PM CDT [facility] Alkaline Phosphatase 85 38 - 126 U/L 08/27/2015 6:31 PM CDT [facility] ALT 49 12 - 78 U/L 08/27/2015 6:31 PM CDT [facility] AST 18 5 - 40 U/L 08/27/2015 6:31 PM CDT [facility] Protein Total 8.0 6.4 - 8.2 gm/dL 08/27/2015 6:31 PM CDT [facility] Albumin 4.1 3.4 - 5.0 gm/dL 08/27/2015 6:31 PM CDT [facility] Bilirubin Total 0.3 0.2 - 1.0 mg/dL 08/27/2015 6:31 PM CDT [facility] eGFR by MDRD >60 >60 mL/min/1.7 3m2 08/27/2015 6:31 PM CDT [facility] eGFR by MDRD >60 >60 mL/min/1.7 3m2 08/27/2015 6:31 PM CDT [facility] Blood BLOOD SPECIMEN / Unknown Venipuncture / Unknown 08/27/2015 6:11 PM CDT 08/27/2015 6:14 PM CDT Colton Caballero MD LAB - CHEMISTRY ORDERABLES [facility] [address] [place] [address] * (ABNORMAL) CBC W AUTO DIFFERENTIAL (08/27/2015 6:11 PM CDT) WBC 8.8 4.4 - 10.7 x10E9/L 08/27/2015 6:16 PM CDT [facility] WBC Corrected x10E9/L 08/27/2015 6:16 PM CDT [facility] RBC 5.32(H) 3.80 - 5.20 x10E12/L 08/27/2015 6:16 PM CDT [facility] Hemoglobin 15.2 12.0 - 15.6 gm/dL 08/27/2015 6:16 PM CDT [facility] Hematocrit 44.8 35.9 - 45.5 % 08/27/2015 6:16 PM CDT [facility] MCV 84.2 80.7 - 98.3 fl 08/27/2015 6:16 PM CDT [facility] MCH 28.6 26.7 - 34.0 pg 08/27/2015 6:16 PM CDT [facility] MCHC 33.9 30.8 - 35.9 gm/dL 08/27/2015 6:16 PM CDT [facility] Platelet Count 326 153 - 416 x10E9/L 08/27/2015 6:16 PM CDT [facility] RDW-CV 14.8 12.1 - 14.9 % 08/27/2015 6:16 PM CDT [facility] MPV 8.8(L) 9.4 - 12.9 fl 08/27/2015 6:16 PM CDT [facility] Neutrophils % 55.4 44.0 - 73.0 % 08/27/2015 6:16 PM CDT [facility] Lymphocytes % 36.4 20.0 - 43.0 % 08/27/2015 6:16 PM CDT [facility] Monocytes % 6.1 5.0 - 13.0 % 08/27/2015 6:16 PM CDT [facility] Eosinophils % 0.6 0.0 - 6.0 % 08/27/2015 6:16 PM CDT [facility] Basophils % 0.9 0.0 - 2.0 % 08/27/2015 6:16 PM CDT [facility] Immature Granulocytes 0.6 0 - 1 % 08/27/2015 6:16 PM CDT [facility] Neutrophil Absolute 4.89 2.01 - 7.14 x10E9/L 08/27/2015 6:16 PM CDT [facility] Lymphocytes Absolute 3.21 1.07 - 3.94 x10E9/L 08/27/2015 6:16 PM CDT [facility] Monocytes Absolute 0.54 0.26 - 1.07 x10E9/L 08/27/2015 6:16 PM CDT [facility] Eosinophils Absolute 0.05 0 - 0.47 x10E9/L 08/27/2015 6:16 PM CDT [facility] Basophils Absolute 0.08 0 - 0.08 x10E9/L 08/27/2015 6:16 PM CDT [facility] Immature Granulocytes Absolute 0.05 0.00 - 0.06 x10E9/L 08/27/2015 6:16 PM CDT [facility] nRBC Auto 0 /100 WBC 08/27/2015 6:16 PM CDT [facility] Blood BLOOD SPECIMEN / Unknown Venipuncture / Unknown 08/27/2015 6:11 PM CDT 08/27/2015 6:14 PM CDT Colton Caballero MD LAB - HEMATOLOG Y ORDERABLES [facility] [address] [place] [address] * CULTURE URINE (08/27/2015 5:51 PM CDT) Culture <10,000 CFU/mL normal urogenital adelso CARLOS EDUARDO 08/29/2015 11:48 AM CDT [facility]CRO[facility] Urine URINE SPECIMEN OBTAINED BY CLEAN CATCH PROCEDURE / Unknown 08/27/2015 5:51 PM CDT 08/27/2015 5:57 PM CDT Yulia Villafana MD LAB - MICROBIOLOGY O RDERABLES Performing Organization Address City/[facility]/ZIP Co de Phone Number [facility]CROBIOLOGY [address] [phone] * HCG URINE QUALITATIVE - POINT OF CARE (IP) (08/27/2015 5:51 PM CDT) HCG Qual Urine Negative Negative [facility] POCT TEST[facility] QC Verified Yes Yes [facility] POC T TESTING Urine specimen (specimen) URINE / Unknown 08/27/2015 5:51 PM CDT Colton Caballero MD LAB - POINT OF CARE ORDERABLES Performing Organization Address [facility]/ZIP Co de Phone Number [facility] [address] [phone] * (ABNORMAL) URINALYSIS ROUTINE W/REFLEX TO CULTURE (08/27/2015 5:51 PM CDT) Color UA Yellow Straw, Yellow, Dark Yellow 08/27/2015 6:02 PM CDT [facility] Clarity UA Clear 08/27/2015 6:02 PM CDT [facility] Specific [place] UA 1.011 1.005 - 1.030 08/27/2015 6:02 PM CDT [facility] pH UA 7.0 5.0 - 8.0 pH 08/27/2015 6:02 PM CDT [facility] Protein UA Negative Negative 08/27/2015 6:02 PM CDT [facility] Blood UA 2+(A) Negative 08/27/2015 6:02 PM CDT [facility] Leukocyte UA Trace(A) Negative 08/27/2015 6:02 PM CDT [facility] Nitrite UA Negative Negative 08/27/2015 6:02 PM CDT [facility] Glucose UA Negative Negative 08/27/2015 6:02 PM CDT [facility] Ketone UA Negative Negative 08/27/2015 6:02 PM CDT [facility] Bilirubin UA Negative Negative 08/27/2015 6:02 PM CDT [facility] Urobilinogen UA 0.2 0.1 - 1.0 EU/dL 08/27/2015 6:02 PM CDT [facility] WBC UA Auto 2-5 0-2, 2-5 # /hpf 08/27/2015 6:02 PM CDT [facility] RBC UA Auto 5-10(A) 0-2, 2-5 # /hpf 08/27/2015 6:02 PM CDT [facility] Epithelial Cell UA Auto 0-2 0-2, 2-5 # /hpf 08/27/2015 6:02 PM CDT [facility] Hyaline Casts UA Auto 2-5(A) 0 - 2 #/lpf 08/27/2015 6:02 PM CDT [facility] Reflex Status Culture to follow 08/27/2015 6:02 PM CDT [facility] Urine URINE SPECIMEN OBTAINED BY CLEAN CATCH PROCEDURE / Unknown 08/27/2015 5:51 PM CDT 08/27/2015 5:57 PM CDT Colton Caballero MD LAB - URINALYSI S ORDERABLES Performing Organization Address City/State/[facility] Co de Phone Number [facility] [address] [place], [place] [id number] documented in this encounter Visit Diagnoses Diagnosis Chronic abdominal pain- Primary Abdominal pain, unspecified site 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 syndrome with diarrhea 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 syndrome Functional abdominal pain syndrome Diverticulitis of colon Diverticulitis of colon (without mention of hemorrhage) Gastritis and duodenitis documented in this encounter Administered Medications Inactive Administered Medications - up to 3 most recent administrations Medication Order MAR Action Action Date Dose Rate Site 0.9% NaCl infusion ADS Med 1 dose, Starting on 08/27/15 at 1915, Until 08/27/15 at 2021, Joseline Espinal : cabinet override 0.9% NaCl IV Bolus 1,000 mL, Administer over 61 Minutes, NOW, 1 dose, On 08/27/15 at 1915 $ Given 08/27/2015 7:21 PM CDT 1,000 mL GI Cocktail 40 mL, Oral, NOW, 1 dose, On 08/27/15 at 211 $ Given 08/27/2015 9:15 PM CDT 40 mL HYDROmorphone (DILAUDID) 1 mg/ml injection ADS Med 1 dose, Starting on 08/27/15 at 1915, Until 08/27/15 at 1921, Joseline Espinal : cabinet override HYDROmorphone (DILAUDID) injection 0.5 mg 0.5 mg, Intravenous, EVERY 1 HOUR PRN, Severe Pain, 2 doses, Starting on 08/27/15 at 1903, Until 08/27/15 at 2242, Any ordered dose for greater than 1mg IV push of HYDROmorphone should be given incrementally $ Given 08/27/2015 10:42 PM CDT 0.5 mg $ Given 08/27/2015 7:21 PM CDT 0.5 mg prochlorperazine (COMPAZINE) injection 10 mg 10 mg, Intravenous, NOW, 1 dose, On 08/27/15 at 191, Max intravenous rate = 5 mg/min $ Given 08/27/2015 7:28 PM CDT 10 mg documented in this encounter Active and Recently Administered Medications Times are shown in CDT. Scheduled Medication Order 08/25/2015 08/26/2015 08/27/2015 0.9% NaCl IV Bolus (COMPLETED) 1,000 mL, Administer over 61 Minutes, NOW, 1 dose, On 08/27/15 at 1915 192 ($ Given - Prov ider: Joseline Espinal RN)2021 (Due: Rx Stopped - Provider: Joseline Espinal RN) GI Cocktail (COMPLETED) 40 mL, Oral, NOW, 1 dose, On 08/27/15 at 5 2114 ($ Given - Prov ider: Joseline Espinal, ANTHONY) prochlorperazine (COMPAZINE) injection 10 mg (COMPLETED) 10 mg, Intravenous, NOW, 1 dose, On 08/27/15 at 1915, Max intravenous rate = 5 mg/min 1928 ($ Given - Prov ider: Joseline Espinal RN) PRN Medication Order 08/25/2015 08/26/2015 08/27/2015 HYDROmorphone (DILAUDID) injection 0.5 mg (COMPLETED) 0.5 mg, Intravenous, EVERY 1 HOUR PRN, Severe Pain, 2 doses, Starting on 08/27/15 at 1903, Until 08/27/15 at 2242, Any ordered dose for greater than 1mg IV push of HYDROmorphone should be given incrementally 1921 ($ Given - Prov ider: Joseline Espinal RN)224 ($ Given - Provider: Cathy Warren, EMT-P) documented in this encounter Care Teams Leather Tanner Relationship Specialty Start Date End Date Jonathan Hartman RN [employer]s Supervisor 07/14/15 documented as of this encounter
--- OUTSIDE RECORDS SUMMARY | 2024-04-29 19:20 | XMS_ITS | Encounter Summary ---
Author Organization [facility] Address [address] [place] [address] Care Team Providers Care Crts Name Role Phone Jonathan Hartman RN Unavailable [phone] Reason for Visit * Auth/Cert Specialty Diagnoses / Procedures Referred By Kaylynn phillips Referred To Contact Diagnoses Acute pancreatitis, unspecified pancreatitis type Referral ID Status Reason Start Date Expiration Date Visits Re quested Visits Authorized [id number] 1 1 Encounter Details Date Type Department Care Team (Late st Contact Info) Description 08/03/2015 7:42 AM CDT Anesthesia Event [facility] - Endoscopy Services [address] [place] [id number] Jorge Lucio DO [address] [place] [address] [place] [address] Chas Tran MD [address] [facility] [place] [address] Anesthesia Record Procedure Summary Procedure Name Responsible Anesthesiologist Anesthesia Start Time Anesthesia Stop Time ESOPHAGOGASTRODUODENOSCOPY (EGD) Jorge Lucio DO 0 08/03/15 0742 08/03/15 0757 Events Date Time Event Comment 08/03/2015 0742 An Start 0742 An Start Data 0743 PT Reassessment Patient and Vital Signs reassessed prior to induction. 0743 Elect Sign The providers l isted as staff are the responsible providers for the case. 0757 Handoff Checklist follo wed: 1. Identification of patient 2. Identification of responsible nurse 3. Discussion of pertinent medical history 4. Discussion of surgical/procedure course 5. Intraoperative anesthetic management and concerns 6. Expectations/plans for the early post-procedure period 7. Opportunity for questions and acknowledgement of report 0757 an stop data 0757 An Stop Meds Name Total lidocaine (XYLOCAINE) 2% injection (20 m g/ml) 50 mg fentaNYL 0.05 mg/ml injection 50 mcg propofol (DIPRIVAN) injection 10mg/ml (E NDO USE) 10 mL 0.9% NaCl infusion 100 mL * Agents Name O2 * Blood No blood administrations on file. Lines, Drains, and Airways Type Details Placement Removal Peripheral IV Date: 08/01/15; Time : 1903; Orientation: Left; Placed By: magnolia moore; Tolerance: Well 08/01/151903 by Marta Marcus RN 08/05/151958 by [employer], Auto Release documented in this encounter Social [...] or have serious hearing difficult y? No 08/02/2015 Is person blind or have serious difficulty seein g? No 08/02/2015 Does person have serious dif ficulty walking/climbing stairs? Yes 08/02/2015 Does person have difficulty dressing/bathing? No 08/02/2015 Does person have difficulty doing errands alone? No 08/02/2015 Cognitive Status Response Date of Assessm ent Does person have difficulty concentrating/remembering/making decisions? No 08/02/2015 documented as of this encounter Progress Notes * Brionna Fournier, MANAGER OF FINANCE-TRAVEL MONEY ADVISOR - 08/03/2015 7:57 AM CDT ANESTHESIA POSTPROCEDURE EVALUATION Madalyn Walton is a 40 y.o. female Temp: 36.3 ??C Pulse: 68 Resp: 18 BP: 125/84 mmHg SpO2: 97 % Pain Rating Score #1: 0 Anesthesia Type: MAC Mental status: sufficiently recovered from acute administration of anesthesia to participate in theevaluation. Level of consciousness: arousable No numbness, tingling or visual disturbances present. General appearance: well-appearing Respiratory function: natural airway. Cardiac: stable Pain: comfortable/acceptable PONV: None Postop hydration: adequate. Patient may be released from anesthesia care. Perioperative Complications: No value filed. ASA/AQI Tracking Events: No value filed. documented in this encounter Consult Notes * Chas Tran MD - 08/02/2015 7:25 PM CDT Pre-anesthesia Evaluation Procedure(s): ESOPHAGOGASTRODUODENOSCOPY (EGD) (N/A ) Diagnosis: Acute pancreatitis, unspecified pancreatitis type [K85.9];D* Vital Signs: Temp: 36.3 ??C (08/01 1633) Pulse: 89 (08/01 1633) Resp: 20 (08/01 1633) BP: 119/76 mmHg (08/01 1633) SpO2: 98 % (08/01 1633) BMI: Estimated body mass index is 28.71 kg/(m^2) as calculated from the following: Height as of this encounter: 5' 5.98 (1.676 m). Weight as of this encounter: 177 lb 12.8 oz (80.65 kg). History: Past Medical History Diagnosis Date ??? Diverticulitis ??? Migraine Past Surgical History Procedure Laterality Date ??? Acl reconstruction Bilateral ??? Endoscopy, colon, diagnostic ??? Tonsillectomy ??? Endoscopy, upper N/A 07/15/2015 N/A; ESOPHAGOGASTRODUODENOSCOPY (EGD) ??? Endoscopy, upper 07/15/2015 ENDOSCOPY GI UPPER WITH BIOPSY reports that she has quit smoking. She uses smokeless tobacco. She reports that she does not drink alcohol or use illicit drugs. Allergies: has No Known Allergies. Medications: Home Medications for Outpatients: No current [...] Tab Oral q4h PRN Hari Niño MD 2Tab at 08/02/15 1638 ??? ondansetron (ZOFRAN) injection 4 mg 4 mg Intravenous q4h PRN Hari Niño MD 4 mg at 08/02/15 0314 ??? HYDROmorphone (DILAUDID) injection 1 mg 1 mg Intravenous q3h PRN Akira Romero MD 1 mg at 08/02/15 1852 ??? DULoxetine (CYMBALTA) capsule 60 mg 60 mg Oral QDAY Chucho Hinton MD 60 mg at 08/02/15 1229 ??? acetaminophen (TYLENOL) tablet 650 mg 650 mg Oral q4h PRN Hari Niño MD ??? fmbrasgafn-hgtqpwgtkudbv-lkdjmcqr (FIORICET) 50-325-40 MG tablet 1 Tab 1 Tab Oral q4h PRN Chucho Hinton MD 1 Tab at 08/02/15 1047 ? ? sucralfate (CARAFATE) suspension 1 g 1 g Oral 4X/day - AC & HS Chucho Hinton MD 1 g at 08/02/15 1633 ??? 0.9% NaCl infusion Intravenous Continuous Chucho Hinton MD 100 mL/hr at 08/02/15 1432 ??? pantoprazole (PROTONIX) injection 40 mg 40 mg Intravenous BID Armando Corona MD 40 mg at 230 ??? 0.9% NaCl injection 1-10 mL 1-10 mL Intracatheter PRN Hari Niño MD ??? iohexol (OMNIPAQUE 350) contrast Intravenous Contrast - Once Hari Niño MD 100 mL at 08/01/152025 Physical Exam: NPO status: no solids since midnight Oriented to person, place and time Airway: II Neck ROM: full Dental exam findings: normal/ok Pulmonary exam: breath sounds CTA Heart sounds: S1 S2 Review of Systems: Recent Labs Component Name 08/01/15 1940 HCGURINE Negative Recent Labs Component Name 08/02/15 1002 08/01/15 1850 07/15/15 0551 07/13/15 1713 WBC - 9.3 5.5 11.3* HGB 12.3 15.1 12.5 16.2* HCT 37.6 44.9 38.2 49.0* PLTCOUNT - 339 243 375 Plan for Anesthesia: ASA Score: 3. Anesthesia plan: MAC Planned method of induction: intravenous Planned postop destination: PACU Anesthesia plan, risks and benefits discussed with [...] Action Action Date Dose Rate Site fentaNYL (SUBLIMAZE) injection PRN, Starting on Sat08/03/15 at 0745, Until Sat08/03/15 at 0757, Anesthesia Intra-op $ Given 08/03/2015 7:45 AM CDT 50 mcg lidocaine (XYLOCAINE) 2 % injection PRN, Starting on Sat08/03/15 at 0746, Until Sat08/03/15 at 0757, Anesthesia Intra-op $ Given 08/03/2015 7:46 AM CDT 50 mg propofol (DIPRIVAN) injection CONTINUOUS PRN, Starting on Sat08/03/15 at 0746, Until Sat08/03/15 at 0757, Anesthesia Intra-op $ New Bag/Syringe 08/03/2015 7:46 AM CDT documented in this encounter Care Teams Crts Relationship Specialty Start Date End Date Jonathan Hartman, RN Line Haul Truck Driver 07/14/15 documented as of this encounter
--- OUTSIDE RECORDS SUMMARY | 2024-04-29 19:20 | XMS_ITS | Encounter Summary ---
Author Organization [facility] Address [address] [address] Care Team Providers Care Decker Operator Name Role Phone Jonathan Hartman RN Unavailable [phone] Reason for Visit * Reason Onset Date Comments Follow-up 08/27/2015 Encounter Details Date Type Department Care Team (Late st Contact Info) Description 08/27/2015 Telephone [facility] [address] [place] [phone] Preston Mixon MD [address] [place] [id number] Follow-up Social History Tobacco Use Types Packs/Day Years [...] encounter Miscellaneous Notes * Telephone Encounter - Preston Mixon MD - 08/27/2015 4:18 PM CDT Abdomina pain And nausea diarrhea Not improving She will go to er if no improvement documented in this encounter Plan of Treatment Not on file documented as of this encounter Visit Diagnoses Not on filedocumented in this encounter Care Teams Decker Operator Relationship Specialty Start Date End Date Jonathan Hartman, RN Wildlife Technician 07/14/15 documented as of this encounter
--- OUTSIDE RECORDS SUMMARY | 2024-04-29 19:20 | XMS_ITS | Encounter Summary ---
Author Organization [facility] Address [address] [place] [address] Care Team Providers Care Painter Airbrush Name Role Phone Jonathan Hartman Rhett RN Unavailable [phone] Encounter Details Date Type Department Care Team (Late st Contact Info) Description 08/11/2015 Orders Only [facility] - GI [address] [place] [id number] Preston Mixon MD [address] [place] [id number] Diverticulitis of intestine without perforation or abscess without bleeding, unspecified part of intestinal tract Social History Tobacco Use Types Packs/Day Years [...] No 08/04/2015 documented as of this encounter Progress Notes * Shantell Bonner MA - 08/11/2015 3:38 PM CDT Pt recently released from ER for abd pain. Pain is back and it's mainly on the left side. Sometimesw/ mid, lower abd pain. Hx of diverticulitis. No signs of diverticulitis while in hosp (colon and ct.) Moved up pt's appt. However, pt would like to know what to do in the meantime since Dr. Corona isnot in. Spoke to Dr. Mixon - can prescribe abx. Pt agreed. Will send in Rx. documented in this encounter Plan of Treatment Not on file documented as of this encounter Visit Diagnoses Diagnosis Diverticulitis of intestine without perforation or abscess without bleeding, unspecified part of intestinal tract- Primary documented in this encounter Care Teams Painter Airbrush Relationship Specialty Start Date End Date Jonathan Hartman, RN Graphite Mill Operator 07/14/15 documented as of this encounter
--- OUTSIDE RECORDS SUMMARY | 2024-04-29 19:20 | XMS_ITS | Encounter Summary ---
Author Organization [facility] Address [address] [facility] [address] [place] [address] Care Team Providers Care Category Planner Name Role Phone Jonathan Hartman Rhett RN Unavailable [phone] Encounter Details Date Type Department Care Team (Late st Contact Info) Description 11/11/2015 Orders Only [facility] - [address] [address] Armando Corona MD [address] [place] [phone] Abdominal pain, unspecified abdominal location Social History Tobacco Use Types Packs/Day Years [...] this encounter Patient Instructions * Patient Instructions* Harris Grider - 11/11/2015 1:49 PM CDT COLONOSCOPY PREPARATION Please arrive at 11am for your procedure which is scheduled at 12:30NOON, on 12/15/15. Please register at: [facility] Endoscopy Department ([place] [facility]) [address] [place] [address] FIRST STEPS: Notify us if you are [...] PREPARATION/CLEANSING INSTRUCTIONS: 2 DAYS BEFORE YOUR PROCEDURE: Your prescription has been sent to your pharmacy. supervisor hot strip mill the Golytely/Gavalyte bowel prep. Mix theGolytely/Gavalyte according to the instructions on the bottle [...] your exam). It is best if your car driver can wait during your procedure. There is a comfortable waiting area for their convenience. Thank you for allowing us to participate in your care. If you have any questions regarding this procedure or preparation for it, please call our office [phone] or [phone]. documented in this encounter Progress Notes * Harris Grider - 11/11/2015 1:49 PM CDT Pt sched for colon [facility] 12/15/15@12:30pm, mailed instructions to pt, rx sent to pharm, orders in [facility] [place] documented in this encounter Plan of Treatment Not on file documented as of this encounter Visit Diagnoses Diagnosis Abdominal pain, unspecified abdominal location- Primary documented in this encounter Care Teams Category Planner Relationship Specialty Start Date End Date Jonathan Hartman RN Crane Hooker 07/14/15 documented as of this encounter
--- OUTSIDE RECORDS SUMMARY | 2024-04-29 19:20 | XMS_ITS | Encounter Summary ---
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 Cutter Name Role Phone Jonathan Hartman RN Unavailable [phone] Reason for Visit * Reason Comments Pain Abdominal AP for 3 days admitt ed on 07/31 for same/hx diverticulitis/had recent endoscopy/stools have been black and tarry GI Bleeding * Auth/Cert Specialty Diagnoses / Procedures Referred By Kaylynn t Referred To Contact Referral ID Status Reason Start Date Expiration Date Visits Re quested Visits Authorized [id number] 1 1 Encounter Details Date Type Department Care Team (Late st Contact Info) Description 08/12/2015 7:45 PM CDT - 08/13/2015 12:29 AM CDT Emergency ER at [facility] [address] [place] [id number] [place] [address] [place] [address] Abdominal pain, generalized (Primary Dx) Discharge Disposition: Home or Self Care Social [...] Sign Reading Time Taken Comments Blood Pressure 101/58 08/12/2015 11:40 PM CDT Pulse 69 08/12/2015 11:40 PM CDT Temperature 36.4 ??C (97.6 ??F) 08/12/2015 7:58 PM CD T Respiratory Rate 18 08/12/2015 11:40 PM CDT Oxygen Saturation 100% 08/12/2015 11:40 PM CDT Inhaled Oxygen Concentration - - Weight 76.7 kg (169 lb) 08/12/2015 6:55 PM CDT Height 167.6 cm (5' 6 ) 08/12/2015 6:55 PM CDT Body Mass Index 27.28 08/12/2015 6:55 PM CDT documented in this encounter Functional [...] Instructions * Discharge Instructions* Eleno Mcclure, - 08/13/2015 12:17 AM CDT Images from the original note were not included. Abdominal Pain (Nonspecific) Your exam might not show the exact reason you have abdominal pain. Since there are many different causes of abdominal pain, another checkup and more tests may be needed. It is very important to follow up for lasting (persistent) or worsening symptoms. A possible cause of abdominal pain in any person who still has his or her appendix is acute appendicitis. Appendicitis is often hard to diagnose. Normal blood tests, urine tests, ultrasound, and CT scans do not completely rule out early appendicitis or other causes of abdominal pain. Sometimes, only the changes that happen over time will allow appendicitis and other causes of abdominal pain to be determined. Other potential problems that may require surgery may also take time to become more apparent. Because of this, it is important that youfollow all of the instructions below. HOME CARE INSTRUCTIONS ?? Rest as much as possible. ?? Do not eat solid food until your pain is gone. ?? While adults or children have pain: A diet of water, weak decaffeinated tea, broth or bouillon, gelatin, oral rehydration solutions (ORS), frozen ice pops, or ice chips may be helpful. ?? When pain is gone in adults or children: Start a light diet (dry toast, crackers, applesauce, orwhite rice). Increase the diet slowly as long as it does not bother you. Eat no dairy products (including cheese and eggs) and no spicy, fatty, fried, or high-fiber foods. ?? Use no alcohol, caffeine, or cigarettes. ?? Take your regular medicines unless your caregiver told you not to. ?? Take any prescribed medicine as directed. ?? Only take [id number] or prescription medicines for pain, discomfort, or fever as directed by your caregiver. Do not give aspirin to children. If your caregiver has given you a follow-up appointment, it is very important to keep that appointment. Not keeping the appointment could result in a permanent injury and/or lasting (chronic) pain and/or disability. If there is any problem keeping the appointment, you must call to reschedule. SEEK IMMEDIATE MEDICAL CARE IF: ?? Your pain is not gone in 24 hours. ?? Your pain becomes worse, changes location, or feels different. ?? You or your child has an oral temperature above 102?? F (38.9?? C), not controlled by medicine. ?? Your baby is older than 3 months with a rectal temperature of 102?? F (38.9?? C) or higher. ?? Your baby is 3 months old or younger with a rectal temperature of 100.4?? F (38?? C) or higher. ?? You have shaking chills. ?? You keep throwing up (vomiting) or cannot drink liquids. ?? There is blood in your vomit or you see blood in your bowel movements. ?? Your bowel movements become dark or black. ?? You have frequent bowel movements. ?? Your bowel movements stop (become blocked) or you cannot pass gas. ?? You have bloody, frequent, or painful urination. ?? You have yellow discoloration in the skin or whites of the eyes. ?? Your stomach becomes bloated or bigger. ?? You have dizziness or fainting. ?? You have chest or back pain. MAKE SURE YOU: ?? Understand these instructions. ?? Will watch your condition. ?? Will get help right away if you are not doing well or get worse. Document Released: 04/08/2006 Document Revised: 06/30/2012 Document Reviewed: 03/06/2010 ExitCare?? Patient Information ??2013 [employer]. documented in this encounter Medications at Time of Discharge Medication Sig Dispensed Refills Start Date End Date DULoxetine (CYMBALTA) 60 MG capsule Take 60 mg by mouth once daily Takes with 30 mg (total daily dose: 90 mg) hyoscyamine, disintergrating, (NULEV) 0.125 MG tablet Take 1 Tab by mouth every 3 hours as needed (abd pain) 30 Tab 0 08/05/2015 amoxicillin-clavulanate (AUGMENTIN) 500-125 MG tabletIndications:Divert iculitis of intestine without perforation or abscess without bleeding, unspecified part of intestinal tract Take 1 Tab by mouth 3 times daily with meals for 14 days 42 Tab 0 08/11/2015 08/25/2015 butalbital-acetaminophen -caffeine (FIORICET) 50-325-40 MG tablet Take 1 Tab by mouth every 4 hours as needed for Headache 30 Tab 0 08/05/2015 11/18/2015 diazepam (VALIUM) 5 MG tablet Take 1 Tab by mouth 3 times daily as needed for Spasms 8 Tab 0 08/13/2015 11/18/2015 loperamide (IMODIUM) 2 MG capsule Take [...] 07/16/2015 04/25/2016 documented as of this encounter ED Notes * Sabina Rodrigues RN - 08/13/2015 12:28 AM CDT Reviewed discharge instructions with pt and Dr. Mcclure. Pt verbalized understanding. Pt discharged via ambulatory with steady gait. * Eleno Mcclure DO - 08/12/2015 8:05 PM CDT Provider contact with the patient: 08/12/2015 20:05 Madalyn Walton [id number] [facility] EMERGENCY DEPARTMENT History Chief Complaint Patient presents with ??? Pain Abdominal AP for 3 days admitted on 07/31 for same/hx diverticulitis/had recent endoscopy/stools have been black and tarry ??? GI Bleeding HPI Comments: Madalyn Walton is a 40 y.o.female presenting to the ED complaining of abdominal pain that she describes as stabbing to the left side of her abdomen that is recurrent to this exact spot. She and her report that she was seen last week for these symptoms and was diagnosed with diverticulitis via endoscopy. Additionally reports that two days ago she noticed bright blood in her stool that then progressed to dark and tarry . She reports that she had finished her prescribed antibiotics and was given a different script and told to come back in for evaluation if her pain worsened by 6PM today. Associated symptoms of experiencing nausea and feeling the need to dry heave, abdominal tenderness. Denies vaginal bleeding or dysuria. Dr. Corona is who the patient has been seeing and she has also been discussing with Dr. Mixon. Patient is currently taking augmentin per GI. Patient with multiple episodes of the same pain over the last several months. PCP: Feliciano Dash MD Pain Abdominal The history is provided by the patient. This is a recurrent problem. The problem occurs daily. The problem has been gradually worsening. The pain is located in the generalized abdominal region. The quality of the pain is sharp. The pain is at a severity of 9/10. The pain is moderate. Associated symptoms include nausea.Pertinent negatives include no fever, no diarrhea, no vomiting, no constipation, no dysuria, no frequency, no headaches or no myalgias.Nothing worsens the pain. The pain is relieved by nothing. Past workup includes GI consult, endoscopy and colonoscopy.Risk factors for an abdominal aortic aneurysm include over 40 years old. Past Medical History Diagnosis Date ??? Diverticulitis [...] Review of Systems Constitutional: Negative. Negative for fever, chills and diaphoresis. HENT: Negative. Negative for congestion, ear pain and sore throat. Eyes: Negative. Negative for blurred vision, pain, discharge and redness. Respiratory: Negative. Negative for cough, shortness of breath and wheezing. Cardiovascular: Negative. Negative for chest pain and leg swelling. Gastrointestinal: Positive for nausea and abdominal pain. Negative for heartburn, vomiting, diarrhea, constipation and blood in stool. Genitourinary: Negative. Negative for dysuria and frequency. Musculoskeletal: Negative. Negative for myalgias and back pain. Skin: Negative. Negative for rash. Neurological: Negative. Negative for dizziness, tremors, focal weakness, seizures, loss of consciousness and headaches. Endo/Heme/Allergies: Negative. Does not bruise/bleed easily. Psychiatric/Behavioral: Negative. The patient is not nervous/anxious. All other systems reviewed and are negative. Physical Exam BP 115/87 mmHg Pulse 128 Temp(Src) 97.6 ??F Resp 18 Ht 1.676 m (5' 6 ) Wt [...] exhibits no distension. There is no tenderness. Abdomen non-tender with distraction Genitourinary: Guaiac negative stool. Rectal Exam: guaiac negative Musculoskeletal: Normal range of motion. She exhibits no edema or tenderness. Neurological: She is alert and oriented to person, place, and time. She has normal reflexes. No cranial nerve deficit. Skin: Skin is warm and dry. No rash noted. She is not diaphoretic. No erythema. Psychiatric: Thought content normal. Her mood appears anxious. She is agitated and hyperactive. Nursing note and vitals reviewed. Medications Current Outpatient Prescriptions Medication Sig Dispense Refill ??? diazepam (VALIUM) 5 MG tablet Take 1 Tab by mouth 3 times daily as needed for Spasms 8 Tab 0 ??? amoxicillin-clavulanate (AUGMENTIN) 500-125 MG tablet Take 1 Tab by mouth 3 times daily with meals for 14 days 42 Tab 0 ??? oxyCODONE-acetaminophen (PERCOCET) 5-325 MG tablet Take 1 Tab by mouth every 4 hours as needed 30 Tab 0 ??? qopzzlbsoy-hugygxhqxqxtg-zykagkkg (FIORICET) 50-325-40 MG tablet Take 1 Tab by mouth every 4 hours as needed for Headache 30 Tab 0 ??? hyoscyamine, disintergrating, (NULEV) [...] meals & nightly 420 mL 1 ??? loperamide (IMODIUM) 2 [...] once daily Procedures Procedures ECG Interpretation Date/Time: 08/12/2015 7:36 PM Interpreted by ED provider Comparison: not compared with previous ECG Previous ECG: no previous ECG available Rhythm: sinus tachycardia Rate: tachycardic BPM: 102 QRS axis: normal ST Segments: ST segments normal T Waves: T waves normal Clinical impression: non-specific ECG Comments: Artifact present ECG Rhythm Interpretation Lab Interpretation Oxygen Saturation Interpretation The oxygen saturation level is: 100%. The patient was on Room Air for the saturation measurement. Oxygen saturation interpretation is Normal. Intervention(s) used: None. Hospital Encounter on 08/12/15 CULTURE URINE Result Value Ref Range Culture <10,000 CFU/mL urogenital adelso CBC W AUTO DIFFERENTIAL Result Value Ref Range WBC 9.5 4.4-10.7 x10E9/L WBC Corrected x10E9/L RBC 5.10 3.80-5.20 x10E12/L Hgb 14.3 12.0-15.6 gm/dL HCT 43.5 35.9-45.5 % MCV 85.3 80.7-98.3 fl MCH 28.0 26.7-34.0 pg MCHC 32.9 30.8-35.9 gm/dL Plt Ct 301 153-416 x10E9/L RDW-CV 15.3 (H) 12.1-14.9 % MPV 8.7 (L) 9.4-12.9 fl Neutro 61.6 44.0-73.0 % Lymph 31.0 20.0-43.0 % [place] 5.5 5.0-13.0 % Eos 0.8 0.0-6.0 % Baso 0.7 0.0-2.0 % Immature Grans 0.4 0-1 % Neutro Abs 5.86 2.01-7.14 x10E9/L Lymph Abs 2.95 1.07-3.94 x10E9/L [place] Abs 0.52 0.26-1.07 x10E9/L Eosin Abs 0.08 0-0.47 x10E9/L Baso Abs 0.07 0-0.08 x10E9/L Immature Grans (Abs) 0.04 0.00-0.06 x10E9/L NRBC Auto 0 /100 WBC COMPREHENSIVE METABOLIC PANEL Result Value Ref Range Glucose 87 74-106 mg/dL Sodium 135 (L) 136-145 mmol/L Potassium 3.8 3.5-5.1 mmol/L Chloride 106 98-107 mmol/L CO2 24 22-31 mmol/L Calcium 9.1 8.5-10.1 mg/dL Anion Gap 5 5-20 mmol/L BUN 9 7-21 mg/dL Creatinine 0.92 0.50-1.30 mg/dL Alk Phos 85 38-126 U/L ALT/SGPT 77 12-78 U/L AST/SGOT 44 (H) 5-40 U/L Protein Total 7.9 6.4-8.2 gm/dL Albumin 4.0 3.4-5.0 gm/dL Bili Total 0.2 0.2-1.0 mg/dL eGFR MDRD >60 >60 mL/min/1.73m2 eGFR MDRD AFR AMR >60 >60 mL/min/1.73m2 PT-INR Result Value Ref Range PT 9.9 9.5-11.6 sec INR 1.0 0.9-1.1 URINALYSIS ROUTINE W/REFLEX TO CULTURE Result Value Ref Range Color UA Yellow Straw, Yellow, Dark Yellow Clarity UA Slt Cloudy Specific [place] UA 1.020 1.005-1.030 pH UA 6.5 5.0-8.0 pH Protein UA Trace (Abnormal) Negative Blood UA Trace (Abnormal) Negative Leukocyte UA Trace (Abnormal) Negative Nitrite UA Negative Negative Glucose UA Negative Negative Ketone UA Trace (Abnormal) Negative Bili UA Negative Negative Urobilinogen UA 0.2 0.1-1.0 EU/dL Reflex Status Culture to follow URINALYSIS MICROSCOPIC ONLY W/REFLEX CULTURE Result Value Ref Range RBC UA 0-2 0-2, 2-5 # /hpf WBC UA 2-5 0-2, 2-5 # /hpf Bacteria UA 2+ (Abnormal) None Seen Epithelial Cell UA 10-20 (Abnormal) 0-2, 2-5 # /hpf Calcium Oxalate Crystals 1+ (Abnormal) None Seen HCG URINE QUALITATIVE - POINT OF CARE (IP) Result Value Ref Range HCG Qual Urine Negative Negative QC Verified Yes Yes No orders to display WELLS Score Progress Notes 08:05PM Initial Assessment: Patient was made aware of the plan to order labs. Agreed with plan of action. 9:56 PM: I re-evaluated the patient???s medical condition, comfort, and provided a care update. Reported the results of the labs and imagine and informed of the plan to do a rectal exam. Agreed with plan of action and understand information provided. 10:16 PM: Rectal exam: guaiac negative. 12:00AM I re-evaluated the patient???s medical condition, comfort, and provided a care update. I had a formal disposition interview with the patient/family to discuss the ED visit and disposition plan. Patient was agreeable. 12:33 AM Rechecked pt -patient resting comfortably and feeling [...] patient verbalized understanding of the discharge instructions. ED Course Medical Decision Making I have reviewed the: Previous Chart, Nursing Notes and Vitals. I have interpreted the following results: Labs, 12 Lead EKG and Oxygen Saturation. I have discussed the case with Family/Caregiver (relative). Recent negative CT and colonoscopy. EGD showing gastritis. Afebrile. WBC wnl. Pulses equal. Abdomen non-tender with distraction. Has GI follow up. Orders Placed This Encounter ??? CULTURE URINE ??? CBC W AUTO DIFFERENTIAL ??? COMPREHENSIVE METABOLIC PANEL ??? PT-INR ??? OCCULT BLOOD GASTRIC ??? URINALYSIS ROUTINE W/REFLEX TO CULTURE ??? URINALYSIS MICROSCOPIC ONLY W/REFLEX CULTURE ??? CARDIAC EKG ORDER ??? OCCULT BLOOD FECES - POINT OF CARE (IP) ??? HCG URINE QUALITATIVE - POINT OF CARE (IP) ??? EKG 12-LEAD ??? DISCONTD: lactated ringers infusion ??? ondansetron (ZOFRAN) injection 4 mg ??? morphine injection 4 mg ??? pantoprazole (PROTONIX) injection 40 mg ??? diazepam (VALIUM) injection 2.5 mg ??? lactated ringers iv bolus ??? diazepam (VALIUM) 5 MG tablet Clinical Impression Final diagnoses: Abdominal pain, generalized (Primary) New Medications: Discharge Medication List as of 08/13/2015 12:17 AM START taking these medications Details diazepam (VALIUM) 5 MG tablet Disp-8 Tab, R-0, Take 1 Tab by mouth 3 times daily as needed for Spasms, Print I have advised the patient to follow-up with: Armando Corona MD [id number] [phone] Call in 1 day If symptoms worsen return to the ED Preston Mixon MD [address] [address] Call in 1 day If symptoms worsen return to the ED Disposition: Discharged I have reviewed the information recorded by the scribe and agree with its accuracy and contents -- Dr. Mcclure 08/12/2015 8:19 PM Transcribed by Mariah briceno scribe on behalf of Dr. Mcclure 08/12/2015 8:19 PM * Sabina Rodrigues, RN - 08/12/2015 8:01 PM CDT Pt arrives to ER room 1 via wheelchair accompanied by boyfriend Toi. Pt c/o abdominal pain x 6 months intermittently with increasing pain x 2 days ago. Pt states she has generalized abdominal pain 8/10 with increasing left lower quadrant sharp shooting pain 9/10 intermittently. Pt was recently admitted for diverticulitis on 07/31 and discharged on 08/04. Pt on monitor. Pt vss. Call light within reach. Will continue to monitor. documented in this encounter Plan of Treatment Scheduled Orders Name Type Priority Associated Diagnoses Orde r Schedule OCCULT BLOOD FECES - POINT OF CARE (IP) Point of Care Testing STAT ONCE for 1 Occurrences starting 08/12/2015 until 08/12/2015 documented as of this encounter Procedures Procedure Name Priority Date/Time Associated Diagnosis Comments CARDIAC EKG ORDER 08/14/2015 12: 39 AM CDT URINE MICROSCOPIC ONLY REFLEX TO CULTURE STAT 08/12/2015 9:16 PM CDT URINALYSIS REFLEX MICROSCOPIC REFLEX CULTURE STAT 08/12/2015 9:16 PM CDT CULTURE URINE STAT 08/12/2015 9:16 PM CDT HCG URINE QUALITATIVE - POINT OF CARE Routine 08/12/2015 8:20 PM CDT EKG 12-LEAD STAT 08/12/2015 7:36 PM CDT Abdominal pain, generalized PT-INR STAT 08/12/2015 7:29 PM CDT CBC W AUTO DIFFERENTIAL STAT 08/12/2015 7:29 PM CDT COMPREHENSIVE METABOLIC PANEL STAT 08/12/2015 7:29 PM CDT documented in this encounter Results * CARDIAC EKG ORDER (08/14/2015 12:39 AM CDT) Narrative 08/14/2015 12:39 AM CDT Ordered by an unspecified provider. Scanned Document CARDIAC SERVICES ORD ERABLES * CULTURE URINE (08/12/2015 9:16 PM CDT) Culture <10,000 CFU/mL urogenital adelso CARLOS EDUARDO 08/14/2015 9:13 AM CDT [facility] MICROBIOLOGY Urine URINE SPECIMEN OBTAINED BY CLEAN CATCH PROCEDURE / Unknown 08/12/2015 9:16 PM CDT 08/12/2015 9:19 PM CDT Eleno Mcclure DO LAB - MICROBIOLOGY O RDERABLES [facility] MICROBIOLOGY [address] [place] [phone] * (ABNORMAL) URINALYSIS MICROSCOPIC ONLY W/REFLEX CULTURE (08/12/2015 9:16 PM CDT) RBC UA 0-2 0-2, 2-5 # /hpf 08/12/2015 9:29 PM CDT [facility] WBC UA 2-5 0-2, 2-5 # /hpf 08/12/2015 9:29 PM CDT [facility] Bacteria UA 2+(A) None Seen 08/12/2015 9:29 PM CDT [facility] Epithelial Cell UA 10-20(A) 0-2, 2-5 # /hpf 08/12/2015 9:29 PM CDT [facility] Calcium Oxalate Crystals 1+(A) None Seen 08/12/2015 9:29 PM CDT [facility] Urine URINE SPECIMEN OBTAINED BY CLEAN CATCH PROCEDURE / Unknown 08/12/2015 9:16 PM CDT 08/12/2015 9:19 PM CDT Narrative [facility] - 08/12/2015 9:29 PM CDT *Microscopic performed on un-spun urine; <3mL urine submitted Eleno Sears Ren JARQUIN LAB - URINALYSIS ORD ERABLES Performing Organization Address City/[facility]/ZIP Co de Phone Number [facility] [address] [place], [place] [phone] * (ABNORMAL) URINALYSIS ROUTINE W/REFLEX TO CULTURE (08/12/2015 9:16 PM CDT) Color UA Yellow Straw, Yellow, Dark Yellow 08/12/2015 9:24 PM CDT [facility] Clarity UA Slt Cloudy 08/12/2015 9:24 PM CDT [facility] Specific [place] UA 1.020 1.005 - 1.030 08/12/2015 9:24 PM CDT [facility] pH UA 6.5 5.0 - 8.0 pH 08/12/2015 9:24 PM CDT [facility] Protein UA Trace(A) Negative 08/12/2015 9:24 PM CDT [facility] Blood UA Trace(A) Negative 08/12/2015 9:24 PM CDT [facility] Leukocyte UA Trace(A) Negative 08/12/2015 9:24 PM CDT [facility] Nitrite UA Negative Negative 08/12/2015 9:24 PM CDT [facility] Glucose UA Negative Negative 08/12/2015 9:24 PM CDT [facility] Ketone UA Trace(A) Negative 08/12/2015 9:24 PM CDT [facility] Bilirubin UA Negative Negative 08/12/2015 9:24 PM CDT [facility] Urobilinogen UA 0.2 0.1 - 1.0 EU/dL 08/12/2015 9:24 PM CDT [facility] Reflex Status Culture to follow 08/12/2015 9:24 PM CDT [facility] Urine URINE SPECIMEN OBTAINED BY CLEAN CATCH PROCEDURE / Unknown 08/12/2015 9:16 PM CDT 08/12/2015 9:19 PM CDT Eleno Mcclure DO LAB - URINALYSIS ORD ERABLES Performing Organization Address City/[facility]/ZIP Co de Phone Number [facility] [address] [place], [place] [phone] * HCG URINE QUALITATIVE - POINT OF CARE (IP) (08/12/2015 8:20 PM CDT) HCG Qual Urine Negative Negative [facility] POCT TESTING QC Verified Yes Yes [facility] POC T TESTING Urine specimen (specimen) URINE / Unknown 08/12/2015 8:20 PM CDT Eleno Mcclure DO LAB - POINT OF CARE ORDERABLES Performing Organization Address City/[facility] Co de Phone Number [facility] POCT TESTING [address] [phone] * EKG 12-LEAD (08/12/2015 7:36 PM CDT) Ventricular Rate 102 BPM [facility] MUSE Atrial Rate 102 BPM [facility] P-R Interval 124 ms [facility] QRS Duration ms 72 ms [facility] Q-T Interval ms 342 ms [facility] QTC Calculation (Bezet) 445 ms [facility] Calculated P [place] 45 degrees [facility] Calculated R [place] 49 degrees [facility] Calculated T [place] 28 degrees [facility] Interpretation EKG SINUS TACHYCARDIA OTHERWISE NORMAL ECG NO PREVIOUS ECGS AVAILABLE Confirmed by Prerna Hull ([id number]) on 08/13/2015 7:52:18 AM [facility] MUSE 08/12/2015 7:36 PM CDT 08/13/2015 7:52 AM CDT Eleno Mcclure DO ECG ORDERABLES Performing Organization Address City/[facility] Co de Phone Number [facility] * PT-INR (08/12/2015 7:29 PM CDT) PT 9.9 9.5 - 11.6 sec 08/12/2015 7:58 PM CDT [facility] INR 1.0 0.9 - 1.1 08/12/2015 7:58 PM CDT [facility] Blood BLOOD SPECIMEN / Unknown Venipuncture / Unknown 08/12/2015 7:29 PM CDT 08/12/2015 7:44 PM CDT Narrative [facility] - 08/12/2015 7:58 PM CDT Conventional Warfarin Anticoagulant Therapy: INR Reference Range: ??2.0-3.0 Intensive Warfarin Anticoagulant Therapy: INR Reference Range: ? 2.5-3.5 Eleno Mcclure DO LAB - COAGULATION OR DERABLES [facility] [address] [place] [address] * (ABNORMAL) COMPREHENSIVE METABOLIC PANEL (08/12/2015 7:29 PM CDT) [facility] Signature Glucose 87 74 - 106 mg/dL 08/12/2015 8:01 PM CDT [facility] Sodium 135(L) 136 - 145 mmol/L 08/12/2015 8:01 PM CDT [facility] Potassium 3.8 3.5 - 5.1 mmol/L 08/12/2015 8:01 PM CDT [facility] Chloride 106 98 - 107 mmol/L 08/12/2015 8:01 PM CDT [facility] CO2 24 22 - 31 mmol/L 08/12/2015 8:01 PM CDT [facility] Calcium 9.1 8.5 - 10.1 mg/dL 08/12/2015 8:01 PM CDT [facility] Anion Gap 5 5 - 20 mmol/L 08/12/2015 8:01 PM CDT [facility] BUN 9 7 - 21 mg/dL 08/12/2015 8:01 PM CDT [facility] Creatinine 0.92 0.50 - 1.30 mg/dL 08/12/2015 8:01 PM CDT [facility] Alkaline Phosphatase 85 38 - 126 U/L 08/12/2015 8:01 PM CDT [facility] ALT 77 12 - 78 U/L 08/12/2015 8:01 PM CDT [facility] AST 44(H) 5 - 40 U/L 08/12/2015 8:01 PM CDT [facility] Protein Total 7.9 6.4 - 8.2 gm/dL 08/12/2015 8:01 PM CDT [facility] Albumin 4.0 3.4 - 5.0 gm/dL 08/12/2015 8:01 PM CDT [facility] Bilirubin Total 0.2 0.2 - 1.0 mg/dL 08/12/2015 8:01 PM CDT [facility] eGFR by MDRD >60 >60 mL/min/1.7 3m2 08/12/2015 8:01 PM CDT [facility] eGFR by MDRD >60 >60 mL/min/1.7 3m2 08/12/2015 8:01 PM CDT [facility] Blood BLOOD SPECIMEN / Unknown Venipuncture / Unknown 08/12/2015 7:29 PM CDT 08/12/2015 7:44 PM CDT Eleno Mcclure DO LAB - CHEMISTRY [place]OR[place] YEE [facility] [address] [place] [address] * (ABNORMAL) CBC W AUTO DIFFERENTIAL (08/12/2015 7:29 PM CDT) WBC 9.5 4.4 - 10.7 x10E9/L 08/12/2015 7:47 PM CDT [facility] WBC Corrected x10E9/L 08/12/2015 7:47 PM CDT [facility] RBC 5.10 3.80 - 5.20 x10E12/L 08/12/2015 7:47 PM CDT [facility] Hemoglobin 14.3 12.0 - 15.6 gm/dL 08/12/2015 7:47 PM CDT [facility] Hematocrit 43.5 35.9 - 45.5 % 08/12/2015 7:47 PM CDT [facility] MCV 85.3 80.7 - 98.3 fl 08/12/2015 7:47 PM CDT [facility] MCH 28.0 26.7 - 34.0 pg 08/12/2015 7:47 PM CDT [facility] MCHC 32.9 30.8 - 35.9 gm/dL 08/12/2015 7:47 PM CDT [facility] Platelet Count 301 153 - 416 x10E9/L 08/12/2015 7:47 PM CDT [facility] RDW-CV 15.3(H) 12.1 - 14.9 % 08/12/2015 7:47 PM CDT [facility] MPV 8.7(L) 9.4 - 12.9 fl 08/12/2015 7:47 PM CDT [facility] Neutrophils % 61.6 44.0 - 73.0 % 08/12/2015 7:47 PM CDT [facility] Lymphocytes % 31.0 20.0 - 43.0 % 08/12/2015 7:47 PM CDT [facility] Monocytes % 5.5 5.0 - 13.0 % 08/12/2015 7:47 PM CDT [facility] Eosinophils % 0.8 0.0 - 6.0 % 08/12/2015 7:47 PM CDT [facility] Basophils % 0.7 0.0 - 2.0 % 08/12/2015 7:47 PM CDT [facility] Immature Granulocytes 0.4 0 - 1 % 08/12/2015 7:47 PM CDT [facility] Neutrophil Absolute 5.86 2.01 - 7.14 x10E9/L 08/12/2015 7:47 PM CDT [facility] Lymphocytes Absolute 2.95 1.07 - 3.94 x10E9/L 08/12/2015 7:47 PM CDT [facility] Monocytes Absolute 0.52 0.26 - 1.07 x10E9/L 08/12/2015 7:47 PM CDT [facility] Eosinophils Absolute 0.08 0 - 0.47 x10E9/L 08/12/2015 7:47 PM CDT [facility] Basophils Absolute 0.07 0 - 0.08 x10E9/L 08/12/2015 7:47 PM CDT [facility] Immature Granulocytes Absolute 0.04 0.00 - 0.06 x10E9/L 08/12/2015 7:47 PM CDT [facility] nRBC Auto 0 /100 WBC 08/12/2015 7:47 PM CDT [facility] Blood BLOOD SPECIMEN / Unknown Venipuncture / Unknown 08/12/2015 7:29 PM CDT 08/12/2015 7:44 PM CDT Eleno Mcclure DO LAB - HEMATOLOGY ORD ERABLES [facility] [address] [place] [address] documented in this encounter Visit Diagnoses Diagnosis Abdominal pain, generalized- Primary documented in this encounter Administered Medications Inactive Administered Medications - up to 3 most recent administrations Medication Order MAR Action Action Date Dose Rate Site diazepam (VALIUM) injection 2.5 mg 2.5 mg, Intravenous, NOW, 1 dose, On Sat08/12/15 at 2215 $ Given 08/12/2015 10:07 PM CDT 2.5 mg lactated ringers infusion at 125 mL/hr, Intravenous, CONTINUOUS, Starting on Sat08/12/15 at 2100, Until Sat08/13/15 at 0130 $ New Bag/Syringe 08/12/2015 8:47 PM CDT 125 mL/hr lactated ringers iv bolus 1,000 mL, Administer over 30 Minutes, NOW, 1 dose, On Sat08/12/15 at 2215 $ Given 08/12/2015 10:06 PM CDT 1,000 mL morphine injection 4 mg 4 mg, Intravenous, NOW, 1 dose, On Sat08/12/15 at 2030 $ Given 08/12/2015 8:46 PM CDT 4 mg ondansetron (ZOFRAN) injection 4 mg 4 mg, Intravenous, NOW, 1 dose, On Sat08/12/15 at 2030 $ Given 08/12/2015 8:46 PM CDT 4 mg pantoprazole (PROTONIX) injection 40 mg 40 mg, Intravenous, NOW, 1 dose, On Sat08/12/15 at 2030, Reconstitute vial with 10 mL of 0.9% NaCL to a final concentration 4 mg/mL. Adminster prescribed dose over at least 2min. $ Given 08/12/2015 8:30 PM CDT 40 mg documented in this encounter Active and Recently Administered Medications Times are shown in CDT. Scheduled Medication Order 08/11/2015 08/12/2015 08/13/2015 diazepam (VALIUM) injection 2.5 mg (COMPLETED) 2.5 mg, Intravenous, NOW, 1 dose, On Sat08/12/15 at 2215 2207 ($ Given - Provider: Lenin Maloney EMT-P) lactated ringers iv bolus (COMPLETED) 1,000 mL, Administer over 30 Minutes, NOW, 1 dose, On Sat08/12/15 at 2215 2206 ($ Given - Provider: ASHWIN CarvajalP)[id number] (Due: Rx Stopped - Provider: Lenin Maloney EMT-P) morphine injection 4 mg (COMPLETED) 4 mg, Intravenous, NOW, 1 dose, On Sat08/12/15 at 2029 2045 ($ Given - Provider: Sabina Rodrigues RN) ondansetron (ZOFRAN) injection 4 mg (COMPLETED) 4 mg, Intravenous, NOW, 1 dose, On Sat08/12/15 at 2029 2045 ($ Given - Provider: Sabina Rodrigues RN) pantoprazole (PROTONIX) injection 40 mg (COMPLETED) 40 mg, Intravenous, NOW, 1 dose, On Sat08/12/15 at 2029, Reconstitute vial with 10 mL of 0.9% NaCL to a final concentration 4 mg/mL. Adminster prescribed dose over at least 2min. 2029 ($ Given - Provider: Sabina Rodrigues RN) Continuous Medication Order 08/11/2015 08/12/2015 08/13/2015 lactated ringers infusion (CANCELED) at 125 mL/hr, Intravenous, CONTINUOUS, Starting on Sat08/12/15 at 2100, Until 08/13/15 at 0130 7 ($ New Bag/Syringe - Provider: Sabina Rodrigues RN) documented in this encounter Care Teams Wired Sweatband Cutter Relationship Specialty Start Date End Date Jonathan Hartman RN [employer] Teacher 07/14/15 documented as of this encounter
--- OUTSIDE RECORDS SUMMARY | 2024-04-29 19:20 | XMS_ITS | Encounter Summary ---
Author Organization [facility] Address [address] [place] [address] Care Team Providers Care Telecommunication Systems Designer Name Role Phone Jonathan Hartman RN Unavailable [phone] Reason for Visit * Reason Comments Pain Abdominal c/o periumbilical pa in x 3 days. Black diarrhea, increased pain today. Nausea. No vomiting. * Auth/Cert Specialty Diagnoses / Procedures Referred By Kaylynn phillips Referred To Contact Diagnoses Acute pancreatitis, unspecified pancreatitis type Referral ID Status Reason Start Date Expiration Date Visits Re quested Visits Authorized [id number] 1 1 Encounter Details Date Type Department Care Team (Late st Contact Info) Description 08/04/2015 2:00 PM CDT - 08/04/2015 2:30 PM CDT Surgery [facility] - Endoscopy Services [address] [place] [address] Procedure, Nursing G_I GASTROINTESTINAL TRACT IMAGING INTRALUMINAL ESOPHAGUS THROUGH ILEUM Surgery Details Date/Time Status Location OR Service Patient Class Case Class Case Type Trauma Case? 08/04/2015 2:00 PM Posted [facility] ENDO GI Lab Gastroenterology Inpatient Non-Urg ent Add On Panel 1 Procedure LRB Anes Op Region Wound Class Comments GASTROINTESTINAL TRACT IMAGI NG INTRALUMINAL ESOPHAGUS THROUGH ILEUM None Mara n Contaminated Surgeon Surgeon Role Service Panel Procedure, Nursing G_I Primary Gastroenterology [address] Corona documented in this encounter Social History Tobacco [...] daily as needed for Anxiety Chucho Hinton tlbbyrayzv-kthczjkbexlyd-plklirud 50-325-40 MG tablet Commonly known as: FIORICET [...] Answer Comments Your discharge diagnosis is Diverticulitis [705764] Follow up with Primary Care Provider (PCP) [...] of this encounter Progress Notes * Sindi Packer, RN - 08/05/2015 1:54 PM CDT Discharge instructions understood by pt and scripts filled by [place] [facility]. Pt discharged home. * Chucho Hinton [...] 98.2 ??F 97.4 ??F 98.3 ??F Resp: 16 Weight: SpO2: 99% 97% 100% 100% Intake/Output [...] tablet 0.25 mg, Oral, TID PRN ?? gdtwbnfpvv-ucihrjceopcfq-uwzaerfb (FIORICET) 50-325-40 MG tablet 1 Tab, Oral, [...] pain in abdomen. Pain medication given per jun. IVF infusing. Swallow capsule study was completed [...] Temp: 98.6 ??F 98.4 ??F Resp: 12 10 01 16 Weight: SpO2: 97% 94% 100% 100% [...] tablet 650 mg, Oral, q4h PRN ?? nstjmitpac-glcrclocjwsoo-xcgmjcks (FIORICET) 50-325-40 MG tablet 1 Tab, Oral, [...] 98 ??F 97.6 ??F 97.4 ??F Resp: 18 Weight: SpO2: 100% 97% 95% 98% Patient [...] tablet 650 mg, Oral, q4h PRN ?? mdmebnktpp-pewmzervgjvfo-aoifnlhv (FIORICET) 50-325-40 MG tablet 1 Tab, Oral, [...] liquid diet. Continues c/o abdominal pain, refuses Mccarley, states Mccarley doesn't really help her. Pt wants to wait until Dilaudid is due again. * Chari Fontenot RN - 08/03/2015 5:34 AM CDT Shift summary: abdominal pain overnight treated with Mccarley and Dilaudid. Per pt pain never completely gone but reaches tolerable level. Npo for procedure this am, consent in chart. * Mary Castanon RN - 08/02/2015 7:29 PM CDT Shift highlights: VSS. C/o abdominal pain throughout the day. Dilaudid and Mccarley given as ordered. C/o migraine once today. [...] Contact Information Primary Emergency Contact: Toi Smith [facility] Relation: Significant other Anticipated Discharge Date: [...] needs please contact: Madalyn Medina RN [phone]. Audio Technician Name/Phone number: Madalyn Medina RN * Jaky [...] Oral q4h PRN Hari Niño MD ??? pqaqcwnsqt-suffudrfmqzcx-swyqbgon (FIORICET) 50-325-40 MG tablet 1 Tab 1 [...] Oral q4h PRN Hari Niño MD ??? thflcvvsls-vtjpcysdqeiak-ueyscmvp (FIORICET) 50-325-40 MG tablet 1 Tab 1 [...] Hinton MD - 08/02/2015 9:16 AM CDT [facility] Madalyn Walton 1975 Data [...] results for input(s): MAGMGDL in the last 44902 hours. No results for input(s): PHOS in the last 58013 hours. No results for input(s): AMYLASE in the last 37329 hours. No results for input(s): PHART, VTO0QKY, PO2ART, E4GJWUQD, BEART, FIO2 in the last 98178 hours. Invalid input(s): OQK7MEW No results for input(s): BNP in the last 71759 hours. Recent Labs Component Name 07/14/15 1343 CDIFFTOXINAB Negative No results for input(s): HGBA1C in the last 98700 hours. No results for input(s): INR in the last 17209 hours. Recent Labs Component Name 08/02/15 1002 CHOL 184 TRIG 156* HDL 43 LDLCALC 110 No results for input(s): PT in the last 99822 hours. No results for input(s): PTT in the last 80121 hours. No results for input(s): T3FREE in the last 98752 hours. No results for input(s): T4FREE in the last 81879 hours. No results for input(s): TSH in the last 55970 hours. Recent Labs Component Name 08/01/15 1935 [...] CDTAssociated Order(s): IP CONSULT TO PASTORAL CARE Boat Cleaner support to the patient was requested/provided. * [...] Oral q4h PRN Hari Niño MD ??? rvhwceafez-mvzuzunztpwfi-jqxqpnsd (FIORICET) 50-325-40 MG tablet 1 Tab 1 [...] (TYLENOL) tablet 650 mg, Oral, q4h PRN hmgvqxgnyd-isgasheeveuza-rozsnwtw (FIORICET) 50-325-40 MG tablet 1 Tab, Oral, [...] 243 375 Recent Labs Component Name 08/01/15 185 SODIUM 137 POTASSIUM 4.1 CHLORIDE 106 CO2 [...] results for input(s): INR in the last 92957 hours. No results for input(s): AMYLASE in the last 48695 hours. Recent Labs Component Name 08/01/15 1850 [...] you have further questions. Armando Corona MD [facility], Gastroenterology [facility] Division [facility] office: [phone] Exchange: [phone] documented in this encounter Nursing Notes * [...] review, submitted by ANTHONY Livingston at [employer] [id number] Situation: Patient is a 40 y.o. [...] CDT Pt off to CT. * Librado Montesinos, EMT-P - 08/01/2015 7:53 PM CDT Check [...] with the patient: 08/01/2015 18:48 Madalyn Walton [id number] [facility] EMERGENCY DEPARTMENT History Chief Complaint Patient presents with ??? Pain Abdominal c/o periumbilical pain x 3 days. Black diarrhea, increased pain today. Nausea. No vomiting. HPI Comments: Madalyn Walton is a 40 y.o. female with PMHx of diverticulitis and migraines presenting tothe ED with a chief complaint of gradually [...] 54.0 44.0-73.0 % Lymph 36.4 20.0-43.0 % Briscoe 7.1 5.0-13.0 % Eos 1.0 0.0-6.0 % Baso 1.0 0.0-2.0 % Immature Grans 0.5 0-1 % Neutro Abs 5.03 2.01-7.14 x10E9/L Lymph Abs 3.39 1.07-3.94 x10E9/L Briscoe Abs 0.66 0.26-1.07 x10E9/L Eosin Abs 0.09 [...] Yellow, Dark Yellow Clarity UA Clear Specific [place] UA 1.019 1.005-1.030 pH UA 6.5 5.0-8.0 [...] structures are otherwise normal. ?? PRELIMINARY REPORT [facility] Patient Name: ISABEL FROST Age: 28 Patient MR NO: [id number] Referring Doctor: Dr. Dickerson Patient Location: Emergency [...] No large ovarian cysts To Talk to Radiologist([phone] [phone] Leeroy Ching M.D. Electronically Signed Progress Notes 6:49 PM Plan: Labs, CT abdomen/pelvis. 9:35 PM Call out to IPC. 9:36 PM I reevaluated the patient???s medical condition, comfort, and provided a care update. Informed patient and family of admission. 10:33 PM I discussed with Dr. Romero ([facility]) all pertinent aspects of the case [...] Comments CBC W AUTO DIFFERENTIAL AM Draw 08/05/2015 7:09 AM CDT ENDOSCOPY DRUG INDUCED SLEEP EVALUATION 08/04/2015 2:[address] Corona HEMOGLOBIN AM Draw 08/04/2015 11:16 AM CDT PATHOLOGY TISSUE EXAM (STL) Routine 08/04/2015 9:31 AM CDT Diagnosis unknown ENDOSCOPY, COLON, DIAGNOSTIC Routine 08/04/2015 9:04 AM CDT PATHOLOGY TISSUE EXAM (STL) Routine 08/03/2015 7:54 AM CDT Diagnosis unknown EGD Routine 08/03/2015 7:24 AM CDT BASIC METABOLIC PANEL (CALCIUM TOTAL) AM Draw 08/03/2015 4:14 AM CDT Pancreatitis, unspecified pancreatitis type (HCC) CULTURE STOOL+ E COLI SHIGA-LIKE TOXIN Routine 08/02/2015 4:51 PM CDT Diarrhea HGB HCT PANEL Routine 08/02/2015 10:02 AM CDT Pancreatitis, unspecified pancreatitis type (HCC) ALCOHOL ETHYL BLOOD Routine 08/02/2015 1 0:02 AM CDT Pancreatitis, unspecified pancreatitis type (HCC) LIPID PROFILE Routine 08/02/2015 10:02 AM CDT Pancreatitis, unspecified pancreatitis type (HCC) CT ABDOMEN PELVIS W CONTRAST STAT 08/01/2015 8:36 PM CDT Abdominal pain, generalized URINE MICROSCOPIC ONLY REFLEX TO CULTURE STAT 08/01/2015 7:35 PM CDT URINALYSIS REFLEX MICROSCOPIC REFLEX CULTURE STAT 08/01/2015 7:35 PM CDT CULTURE URINE STAT 08/01/2015 7:35 PM CDT TYPE + SCREEN PANEL STAT 08/01/2015 7 :19 PM CDT CBC W AUTO DIFFERENTIAL STAT 08/01/2015 6:50 PM CDT COMPREHENSIVE METABOLIC PANEL STAT 08/01/2015 6:50 PM CDT LIPASE BLOOD STAT 08/01/2015 6:50 PM CDT documented in this encounter Results * (ABNORMAL) CBC W AUTO DIFFERENTIAL (08/05/2015 7:09 AM CDT) [facility] WBC 4.4 4.4 - 10.7 x10E9/L 08/05/2015 7:28 AM CDT [facility] WBC Corrected x10E9/L 08/05/2015 7:28 AM CDT [facility] RBC 4.41 3.80 - 5.20 x10E12/L 08/05/2015 7:28 AM CDT [facility] Hemoglobin 12.5 12.0 - 15.6 gm/dL 08/05/2015 7:28 AM CDT [facility] Hematocrit 38.4 35.9 - 45.5 % 08/05/2015 7:28 AM CDT [facility] MCV 87.1 80.7 - 98.3 fl 08/05/2015 7:28 AM CDT [facility] MCH 28.3 26.7 - 34.0 pg 08/05/2015 7:28 AM CDT [facility] MCHC 32.6 30.8 - 35.9 gm/dL 08/05/2015 7:28 AM CDT [facility] Platelet Count 232 153 - 416 x10E9/L 08/05/2015 7:28 AM CDT [facility] RDW-CV 14.5 12.1 - 14.9 % 08/05/2015 7:28 AM CDT [facility] MPV 8.6(L) 9.4 - 12.9 fl 08/05/2015 7:28 AM CDT [facility] Neutrophils % 39.6(L) 44.0 - 73.0 % 08/05/2015 7:28 AM CDT [facility] Lymphocytes % 52.4(H) 20.0 - 43.0 % 08/05/2015 7:28 AM CDT [facility] Monocytes % 5.5 5.0 - 13.0 % 08/05/2015 7:28 AM CDT [facility] Eosinophils % 1.1 0.0 - 6.0 % 08/05/2015 7:28 AM CDT [facility] Basophils % 0.9 0.0 - 2.0 % 08/05/2015 7:28 AM CDT [facility] Immature Granulocytes 0.5 0 - 1 % 08/05/2015 7:28 AM CDT [facility] Neutrophil Absolute 1.73(L) 2.01 - 7.14 x10E9/L 08/05/2015 7:28 AM CDT [facility] Lymphocytes Absolute 2.29 1.07 - 3.94 x10E9/L 08/05/2015 7:28 AM CDT [facility] Monocytes Absolute 0.24(L) 0.26 - 1.07 x10E9/L 08/05/2015 7:28 AM CDT [facility] Eosinophils Absolute 0.05 0 - 0.47 x10E9/L 08/05/2015 7:28 AM CDT [facility] Basophils Absolute 0.04 0 - 0.08 x10E9/L 08/05/2015 7:28 AM CDT [facility] Immature Granulocytes Absolute 0.02 0.00 - 0.06 x10E9/L 08/05/2015 7:28 AM CDT [facility] nRBC Auto 0 /100 WBC 08/05/2015 7:28 AM CDT [facility] Blood BLOOD SPECIMEN / Unknown Lab Venipuncture / Unknown 08/05/2015 7:09 AM CDT 08/05/2015 7:21 AM CDT Armando Corona MD LAB - HEMATOLOGY ORD ERABLES [facility] [address] [place] [address] * HEMOGLOBIN (08/04/2015 11:16 AM CDT) Hemoglobin 12.6 12.0 - 15.6 gm/dL 08/04/2015 11:28 AM CDT [facility] Blood BLOOD SPECIMEN / Unknown Lab Venipuncture / Unknown 08/04/2015 11:16 AM CDT 08/04/2015 11:22 AM CDT Armando Corona MD LAB - HEMATOLOGY ORD ERABLES [facility] [address] [place] [address] * GROSS + MICRO EXAM (STL) (08/04/2015 9:31 AM CDT) Pathologist [facility] Emergency Department Case Report Surgical Pathology Report ? Case: [id number] ? Authorizing Provider: ??Armando Corona MD ? Collected: ? 08/04/2015 09:31 AM ? Ordering Location: ? [facility] ENDOSCOPY [facility] ?Received: ?08/04/2015 12:25 PM ? Pathologist: ? Kamilla Bustamante MD ? Specimen: ?Polyp Descending, Descending colon polyp ? 08/05/2015 11:25 AM CDT [facility] Final Diagnosis 1. ??Descending colon, polyp, biopsy: -- ??Hyperplastic polyp SR/[place] 08/05/2015 11:25 AM CDT [facility] Gross Description Received in formalin in a container labeled Anton Madalyn, descending colon polyp. ??The container holds a 0.5 x 0.4 x 0.3 cm baird tissue fragment. ??The specimen is entirely submitted in a cassette labeled A1. ?? DYT/rtc 08/05/2015 11:25 AM CDT [facility] Microscopic Description Microscopic examination reveals colonic mucosal fragment with hyperplastic polyp changes. Malignancy is not seen. /zoey 08/05/2015 11:25 AM CDT [facility] Pathology/Cytolo gy POLYP / Unknown 08/04/2015 9:31 AM CDT 08/04/2015 12:25 PM CDT Armando Corona MD LAB - PATHOLOGY/CYTO LOGY ORDERABLES [facility] [address] [phone] * ENDOSCOPY, COLON, DIAGNOSTIC (08/04/2015 9:04 AM [...] Procedure Code(s): ? --- Professional --- ? 88786, Colonoscopy, flexible; with removal of tumor(s), polyp(s), or ? other lesion(s) by snare technique ? --- Technical --- ? 63496, Colonoscopy, flexible; with removal of tumor(s), polyp(s), [...] abscess ? without bleeding CPT copyright 2015 [employer]. All rights reserved. The codes documented in this report are preliminary and upon filler feeder review may be revised to meet current compliance requirements. Armando Mckeonong, 08/04/2015 9:38:09 AM This report has been signed electronically. Number of Addenda: 0 Note Initiated On: 08/04/2015 9:04 AM [facility]OS[facility] 08/04/2015 9:04 AM CDT Narrative Transcriptions Armando Corona MD - 08/04/2015 9:39 AM CDT Colonoscopy * fair prep *few diverticuli * no old or fresh blood * normal terminal ileum rec PRN hyoscyamine Capsule endoscopy today Armando Corona MD GI PROCEDURE ORDERAB LES [facility] ENDOS[facility] * GROSS + MICRO EXAM (STL) (08/03/2015 7:54 AM CDT) Case Report Surgical Pathology Report ? Case: [id number] ? Authorizing Provider: ??Armando Corona MD ? Collected: ? 08/03/2015 07:54 AM ? Ordering Location: ? [facility]OS[facility] ?Received: ?08/03/2015 12:09 PM ? Pathologist: ? Kamilla Bustamante MD ? Specimen: ?Gastric Biopsy ? 08/04/2015 10:17 AM CDT [facility] Final Diagnosis 1. ??Gastric biopsy: -- ??Chronic gastritis -- ??H. pylori stain negative for bacterial organisms /[facility] 08/04/2015 10:17 AM CDT [facility] Gross Description The specimen is received fixed in formalin in 1 container labeled with the patient's name, and gastric biopsy and contains three soft baird-yellow tissue fragments each measuring 0.3 cm in greatest dimension. The specimen is strained through a mesh bag and submitted in toto in cassette A1. /mark 08/04/2015 10:17 AM CDT [facility] Microscopic Description Microscopic examination reveals gastric antrum and body mucosal fragments with patchy chronic gastritis. Metaplasia, dysplasia, malignancy and granulomas are not seen. H. pylori stain is negative for bacterial organisms. All of the stain(s), control slide(s) and test tissue slide(s) were judged as technically acceptable. /[facility] 08/04/2015 10:17 AM CDT [facility] Pathology/Cytolo gy GASTRIC BIOPSY SPECIMEN / Unknown 08/03/2015 7:54 AM CDT 08/03/2015 12:09 PM CDT Armando Corona MD LAB - PATHOLOGY/CYTO LOGY ORDERABLES [facility] [address] [place] [address] * EGD (08/03/2015 7:24 AM [...] (Doctor), Roxi Bennett RN, Sona Dove, ? [employer] Patient Profile: ?? 40F pmh depression, arthritis, [...] Procedure Code(s): ? --- Professional --- ? 38378, Esophagogastroduod enoscopy, flexible, transoral; with biopsy, ? single or multiple ? --- Technical --- ? 29091, Esophagogastroduod enoscopy, flexible, transoral; with biopsy, ? single or multiple Diagnosis Code(s): ? --- Professional --- ? K29.70, Gastritis, unspecified, without bleeding ? R10.13, Epigastric pain ? R10.33, Periumbilical pain ? K92.1, Melena (includes Hematochezia) ? --- Technical --- ? K29.70, Gastritis, unspecified, without bleeding ? R10.13, Epigastric pain ? R10.33, Periumbilical pain ? K92.1, Melena (includes Hematochezia) CPT copyright 2015 [employer]. All rights reserved. The codes documented in this report are preliminary and upon filler feeder review may be revised to meet current compliance requirements. Armando Corona, 08/03/2015 8:00:13 AM This report has been signed electronically. Number of Addenda: 0 Note Initiated On: 08/03/2015 7:24 AM [facility] 08/03/2015 7:24 AM CDT Narrative Transcriptions Armando Corona MD - 08/03/2015 8:00 AM CDT EGD - mild gastritis bx'd, other normal to proximal jejunum Rec Colonoscopy tomorrow Follow cb[facility] Armando Corona MD GI PROCEDURE ORDERAB LES [facility] * (ABNORMAL) BASIC METABOLIC PANEL (CALCIUM TOTAL) (08/03/2015 4:14 AM CDT) Glucose 83 74 - 106 mg/dL 08/03/2015 5:35 AM CDT [facility] Sodium 141 136 - 145 mmol/L 08/03/2015 5:35 AM CDT [facility] Potassium 4.0 3.5 - 5.1 mmol/L 08/03/2015 5:35 AM CDT [facility] Chloride 107 98 - 107 mmol/L 08/03/2015 5:35 AM CDT [facility] CO2 25 22 - 31 mmol/L 08/03/2015 5:35 AM CDT [facility] Calcium 8.3(L) 8.5 - 10.1 mg/dL 08/03/2015 5:35 AM CDT [facility] Anion Gap 9 5 - 20 mmol/L 08/03/2015 5:35 AM CDT [facility] BUN 6(L) 7 - 21 mg/dL 08/03/2015 5:35 AM CDT [facility] Creatinine 0.70 0.50 - 1.30 mg/dL 08/03/2015 5:35 AM CDT [facility] eGFR by MDRD >60 >60 mL/min/1.7 3m2 08/03/2015 5:35 AM CDT [facility] eGFR by MDRD >60 >60 mL/min/1.7 3m2 08/03/2015 5:35 AM CDT [facility] Blood BLOOD SPECIMEN / Unknown Lab Venipuncture / Unknown 08/03/2015 4:14 AM CDT 08/03/2015 4:52 AM CDT Akira Romero MD LAB - CHEMISTRY MORGAN YEE [facility] [address] [place] [address] * CULTURE STOOL+ E COLI SHIGA-LIKE TOXIN (08/02/2015 4:51 PM CDT) Culture No growth Salmonella, Shigella, Campylobacter , E. coli 0157:h7 or Yersinia CARLOS EDUARDO 08/04/2015 6:27 AM CDT [facility] Culture Negative E. coli Shiga-like toxin (NM) CARLOS EDUARDO 08/04/2015 6:27 AM CDT [facility] Stool STOOL SPECIMEN / Unknown Collection / Unknown 08/02/2015 4:51 PM CDT 08/02/2015 4:56 PM CDT Chucho Hinton MD LAB - MICROBIOLOGY O RDERABLES [facility] [address] [place] [phone] * (ABNORMAL) LIPID PROFILE (08/02/2015 10:02 AM CDT) Cholesterol 184 <200 mg/dL 08/02/2015 10:49 AM CDT [facility] Triglycerides 156(H) <150 mg/dL 08/02/2015 10:49 AM CDT [facility] HDL Cholesterol 43 >40 mg/dL 08/02/2015 10:49 AM CDT [facility] LDL Calculated 110 <130 mg/dL 08/02/2015 10:49 AM CDT [facility] VLDL Calculated 31(H) <=30 mg/dL 08/02/2015 10:49 AM CDT [facility] Chol HDL Ratio 4.3 <4.5 08/02/2015 10:49 AM CDT [facility] LDL/HDL Ratio 2.6 <5.0 08/02/2015 10:49 AM CDT [facility] Blood BLOOD SPECIMEN / Unknown Lab Venipuncture / Unknown 08/02/2015 10:02 AM CDT 08/02/2015 10:13 AM CDT Chucho Hinton MD LAB - CHEMISTRY MORGAN YEE [facility] [address] [place] [address] * ALCOHOL ETHYL BLOOD (08/02/2015 10:02 AM CDT) Ethanol <10 <10 mg/dL 08/02/2015 10:49 AM CDT [facility] Ethanol Calculated <0.100 gm/dL 08/02/2015 10:49 AM CDT [facility] Blood BLOOD SPECIMEN / Unknown Lab Venipuncture / Unknown 08/02/2015 10:02 AM CDT 08/02/2015 10:13 AM CDT Narrative [facility] - 08/02/2015 10:49 AM CDT Non Legal Serum Alcohol Chucho Hinton MD LAB - CHEMISTRY MORGAN YEE Performing Organization Address City/[facility] Co de Phone Number [facility] [address] [place] [phone] * HGB HCT PANEL (08/02/2015 10:02 AM CDT) Hemoglobin 12.3 12.0 - 15.6 gm/dL 08/02/2015 10:37 AM CDT [facility] Hematocrit 37.6 35.9 - 45.5 % 08/02/2015 10:37 AM CDT [facility] Blood BLOOD SPECIMEN / Unknown Lab Venipuncture / Unknown 08/02/2015 10:02 AM CDT 08/02/2015 10:13 AM CDT Akira Romero MD LAB - HEMATOLOGY ORD PRIMITIVO Performing Organization Address City/[facility] Co de Phone Number [facility] [address] [place] [phone] * CT ABDOMEN AND PELVIS WITH IV [...] adelso CARLOS EDUARDO 08/03/2015 9:25 AM CDT [facility] Urine URINE SPECIMEN OBTAINED BY CLEAN CATCH PROCEDURE / Unknown Collection / Unknown 08/01/2015 7:35 PM CDT 08/01/2015 7:39 PM CDT Hari Niño MD LAB - MICROBIOLOGY O RDERABLES Performing Organization Address City/[facility]/ZIP Co de Phone Number [facility] [address] [phone] * (ABNORMAL) URINALYSIS MICROSCOPIC ONLY W/REFLEX CULTURE (08/01/2015 7:35 PM CDT) Pathologist [facility] Bacteria UA 1+(A) None Seen 08/01/2015 8:02 PM CDT [facility] Epithelial Cell UA 2-5 0-2, 2-5 # /hpf 08/01/2015 8:02 PM CDT [facility] Mucus UA Trace 08/01/2015 8:02 PM CDT [facility] Hyaline Casts 0-2 0 - 2 # /lpf 08/01/2015 8:02 PM CDT [facility] Calcium Oxalate Crystals 2+(A) None Seen 08/01/2015 8:02 PM CDT [facility] Urine URINE SPECIMEN OBTAINED BY CLEAN CATCH PROCEDURE / Unknown Collection / Unknown 08/01/2015 7:35 PM CDT 08/01/2015 7:39 PM CDT Hari Niño MD LAB - URINALYSIS ORD ERABLES Performing Organization Address City/[facility]/ZIP Co de Phone Number [facility] [address] [place] [address] * (ABNORMAL) URINALYSIS ROUTINE W/REFLEX TO CULTURE (08/01/2015 7:35 PM CDT) Color UA Yellow Straw, Yellow, Dark Yellow 08/01/2015 7:45 PM CDT [facility] Clarity UA Clear 08/01/2015 7:45 PM CDT [facility] Specific [place] UA 1.019 1.005 - 1.030 08/01/2015 7:45 PM CDT [facility] [facility] pH UA 6.5 5.0 - 8.0 pH 08/01/2015 7:45 PM CDT [facility] Protein UA Negative Negative 08/01/2015 7:45 PM CDT [facility] Blood UA Negative Negative 08/01/2015 7:45 PM CDT [facility] Leukocyte UA 1+(A) Negative 08/01/2015 7:45 PM CDT [facility] Nitrite UA Negative Negative 08/01/2015 7:45 PM CDT [facility] Glucose UA Negative Negative 08/01/2015 7:45 PM CDT [facility] Ketone UA Negative Negative 08/01/2015 7:45 PM CDT [facility] Bilirubin UA Negative Negative 08/01/2015 7:45 PM CDT [facility] Urobilinogen UA 0.2 0.1 - 1.0 EU/dL 08/01/2015 7:45 PM CDT [facility] WBC UA Auto 2-5 0-2, 2-5 # /hpf 08/01/2015 7:45 PM CDT [facility] RBC UA Auto 2-5 0-2, 2-5 # /hpf 08/01/2015 7:45 PM CDT [facility] Reflex Status Culture to follow 08/01/2015 7:45 PM CDT [facility] Urine URINE SPECIMEN OBTAINED BY CLEAN CATCH PROCEDURE / Unknown Collection / Unknown 08/01/2015 7:35 PM CDT 08/01/2015 7:39 PM CDT Hari Niño MD LAB - URINALYSIS ORD ERABLES [facility] [address] [place], [place] [id number] * TYPE + SCREEN PANEL (08/01/2015 7:19 PM CDT) ABO A 08/01/2015 8:23 PM CDT [facility] Rh Type Positive 08/01/2015 8:23 PM CDT [facility] Comment:History check perfor med. Retype required. Antibody Screen Negative 08/01/2015 8:23 PM CDT [facility] Miscellaneous samples (specimen) BLOOD SPECIMEN / Unknown Venipuncture / Unknown 08/01/2015 7:19 PM CDT 08/01/2015 7:22 PM CDT Hari Niño MD LAB - BLOOD BANK ORD PRIMITIVO Performing Organization Address City/[facility]/ZIP Co de Phone Number [facility] [address] [place] [address] * (ABNORMAL) LIPASE BLOOD (08/01/2015 6:50 PM CDT) Lipase 681(H) 10 - 220 U/L 08/01/2015 7:14 PM CDT [facility] Blood BLOOD SPECIMEN / Unknown Venipuncture / Unknown 08/01/2015 6:50 PM CDT 08/01/2015 6:54 PM CDT Hari Niño MD LAB - CHEMISTRY [place]OR[place] YEE Performing Organization Address [facility] Co de Phone Number [facility] [address] [place] [address] * (ABNORMAL) COMPREHENSIVE METABOLIC PANEL (08/01/2015 6:50 PM CDT) Glucose 88 74 - 106 mg/dL 08/01/2015 7:14 PM CDT [facility] Sodium 137 136 - 145 mmol/L 08/01/2015 7:14 PM CDT [facility] Potassium 4.1 3.5 - 5.1 mmol/L 08/01/2015 7:14 PM CDT [facility] Chloride 106 98 - 107 mmol/L 08/01/2015 7:14 PM CDT [facility] CO2 21(L) 22 - 31 mmol/L 08/01/2015 7:14 PM CDT [facility] Calcium 9.3 8.5 - 10.1 mg/dL 08/01/2015 7:14 PM CDT [facility] Anion Gap 10 5 - 20 mmol/L 08/01/2015 7:14 PM CDT [facility] BUN 13 7 - 21 mg/dL 08/01/2015 7:14 PM CDT [facility] Creatinine 0.90 0.50 - 1.30 mg/dL 08/01/2015 7:14 PM CDT [facility] Alkaline Phosphatase 77 38 - 126 U/L 08/01/2015 7:14 PM CDT [facility] ALT 34 12 - 78 U/L 08/01/2015 7:14 PM CDT [facility] AST 13 5 - 40 U/L 08/01/2015 7:14 PM CDT [facility] Protein Total 7.9 6.4 - 8.2 gm/dL 08/01/2015 7:14 PM CDT [facility] Albumin 4.3 3.4 - 5.0 gm/dL 08/01/2015 7:14 PM CDT [facility] Bilirubin Total 0.2 0.2 - 1.0 mg/dL 08/01/2015 7:14 PM CDT [facility] eGFR by MDRD >60 >60 mL/min/1.7 3m2 08/01/2015 7:14 PM CDT [facility] eGFR by MDRD >60 >60 mL/min/1.7 3m2 08/01/2015 7:14 PM CDT [facility] Blood BLOOD SPECIMEN / Unknown Venipuncture / Unknown 08/01/2015 6:50 PM CDT 08/01/2015 6:54 PM CDT Hari Niño MD LAB - [place]MISTRY [place] [facility] Organization Address City/State/ZIP Co de Phone Number [facility] [address] [place] [address] * (ABNORMAL) CBC W AUTO DIFFERENTIAL (08/01/2015 6:50 PM CDT) WBC 9.3 4.4 - 10.7 x10E9/L 08/01/2015 6:57 PM CDT [facility] WBC Corrected x10E9/L 08/01/2015 6:57 PM CDT [facility] RBC 5.35(H) 3.80 - 5.20 x10E12/L 08/01/2015 6:57 PM CDT [facility] Hemoglobin 15.1 12.0 - 15.6 gm/dL 08/01/2015 6:57 PM CDT [facility] Hematocrit 44.9 35.9 - 45.5 % 08/01/2015 6:57 PM CDT [facility] MCV 83.9 80.7 - 98.3 fl 08/01/2015 6:57 PM CDT [facility] MCH 28.2 26.7 - 34.0 pg 08/01/2015 6:57 PM CDT [facility] MCHC 33.6 30.8 - 35.9 gm/dL 08/01/2015 6:57 PM T [facility] Platelet Count 339 153 - 416 x10E9/L 08/01/2015 6:57 PM [facility] RDW-CV 15.0(H) 12.1 - 14.9 % 08/01/2015 6:57 PM T [facility] MPV 8.3(L) 9.4 - 12.9 fl 08/01/2015 6:57 PM [facility] Neutrophils % 54.0 44.0 - 73.0 % 08/01/2015 6:57 PM [facility] Lymphocytes % 36.4 20.0 - 43.0 % 08/01/2015 6:57 PM [facility] Monocytes % 7.1 5.0 - 13.0 % 08/01/2015 6:57 PM [facility] Eosinophils % 1.0 0.0 - 6.0 % 08/01/2015 6:57 PM T [facility] Basophils % 1.0 0.0 - 2.0 % 08/01/2015 6:57 PM [facility] Immature Granulocytes 0.5 0 - 1 % 08/01/2015 6:57 PM [facility] Neutrophil Absolute 5.03 2.01 - 7.14 x10E9/L 08/01/2015 6:57 PM [facility] Lymphocytes Absolute 3.39 1.07 - 3.94 x10E9/L 08/01/2015 6:57 PM CDT [facility] Monocytes Absolute 0.66 0.26 - 1.07 x10E9/L 08/01/2015 6:57 PM [facility] Eosinophils Absolute 0.09 0 - 0.47 x10E9/L 08/01/2015 6:57 PM T [facility] Basophils Absolute 0.09(H) 0 - 0.08 x10E9/L 08/[facility]2015 [facility] Immature Granulocytes Absolute 0.05 0.00 - 0.06 x10E9/L 08/01/2015 6:57 PM T [facility] nRBC Auto 0 /100 WBC 08/01/2015 6:57 PM CDT [facility] Blood BLOOD SPECIMEN / Unknown Venipuncture / Unknown 08/01/2015 6:50 PM CDT 08/01/2015 6:54 PM CDT Hari Niño MD LAB - HEMATOLOGY ORD ERABLES [facility] [address] [place] [address] documented in this encounter Visit Diagnoses Not on filedocumented [...] Given 08/01/2015 7:21 PM CDT 1,000 mL kxlfvjrjhy-fvmhbduvzserj-eab feine (FIORICET) 50-325-40 MG tablet 1 Tab [...] on Sat08/01/15 at 2025, Until Sat08/03/15 at 202 $ Given - Contrast 08/01/2015 8:26 PM [...] RN) 0802 ($ Given - Provider: Sindi Packer RN) heparin injection 5,000 Units (CANCELED) 5,000 Units, Subcutaneous, EVERY 8 HOURS, First dose on Sat08/03/15 at 1400, Until Discontinued 1452 ($ Given - Provider: Diana Hickey RN)2143 ($ Given - Provider: Maria C Crocker, ANTHONY) 0600 (Not Administered - Provider: Maria C Crocker, ANTHONY - Reason: Procedural Hold)1418 ($ Given - Provider: Janina Espinoza RN)4 ($ Given - Provider: Ghazala Deleon APRN-NOEMY) 0521 ($ Given - Provider: Ghazala Deleon APRN-NOEMY) pantoprazole (PROTONIX) injection 40 mg (CANCELED) 40 mg, Intravenous, 2 TIMES DAILY, First dose on Sat08/03/15 at 1000, Until Discontinued, Reconstitute vial with 10 mL of 0.9% NaCL to a final concentration 4 mg/mL. [place] prescribed dose over at least 2min. 0911 ($ Given - Provider: Diana Hickey RN)2018 ($ Given - Provider: Maria C Crocker RN) 0900 (Not Administered - Provider: Janina Espinoza RN - Reason: Discontinued by physician) pantoprazole EC (PROTONIX) tablet 40 mg (CANCELED) 40 mg, Oral, DAILY, First dose on Sat08/04/15 at 0945, Until Discontinued, Do not crush, chew, or cut in half. 1116 ($ Given - Provider: Janina Espinoza RN) 0803 ($ Given - Provider: Sindi Packer RN) polyethylene glycol (GoLYTELY) solution 2,000 mL [...] using. 0911 ($ Given - Provider: Diana Hickey RN)1213 ($ Given - Provider: Diana Hickey RN)1642 ($ Given - Provider: Diana Hickey RN)2018 ($ Given - Provider: Maria C Crocker RN) 0800 (Not Administered - Provider: Janina Espinoza RN - Reason: Discontinued by physician) Continuous Medication Order 08/03/2015 08/04/2015 08/05/2015 0.9% NaCl infusion (CANCELED) at 100 mL/hr, Intravenous, CONTINUOUS, Starting on Sat08/02/15 at 1145, Until Sat08/05/15 at 1459 0032 ($ New Bag/Syringe - Provider: Chari Fontenot RN)2300 (Restarted - Provider: Maria C Crocker, ANTHONY) 0932 (Anesthesia Volume Adjustment - Provider: Hari Guillory MEDICAL BILLING COORDINATOR-DEVELOPMENTAL SPECIALIST)1114 ($ New Bag/Syringe - Provider: Janina Espinoza RN)2054 ($ New Bag/Syringe - Provider: Ghazala Deleon MEDICAL BILLING COORDINATOR-DRIVER LICENSE TECHNICIAN) 0651 ($ New Bag/Syringe - Provider: Ghazala Deleon MEDICAL BILLING COORDINATOR-[facility]) 0.9% NaCl infusion (CANCELED) at 20 mL/hr, Intravenous, CONTINUOUS, Starting on Sat08/03/15 at 0730, Until Sat08/03/15 at 0846, Pre-procedure (GI) 0700 ($ New Bag/Syringe - Provider: Peg Lorenzana RN)0754 (Anesthesia Volume Adjustment - Provider: Brionna Fournier MEDICAL BILLING COORDINATOR-DEVELOPMENTAL SPECIALIST) PRN Medication Order 08/03/2015 08/04/2015 08/05/2015 ALPRAZolam [...] Sat08/02/15 at 0157, Until Sat08/05/15 at 1459 1114 ($ Given - Provider: Janina Espinoza RN) oxyCODONE-acetaminophen (PERCOCET) 5-325 MG tablet 1-2 Tab (CANCELED) 1-2 tablet, Oral, EVERY 4 HOURS PRN, Moderate Pain, Severe Pain, 1 tab moderate, 2 tab severe, Starting on Sat08/03/15 at 1343, Until Sat08/05/15 at 1459 1453 ($ Given - Provider: Diana Hickey RN)1911 ($ Given - Provider: Diana Hickey RN) 0641 ($ Given - Provider: Maria C Crocker RN)1419 ($ Given - Provider: Janina Espinoza RN)2054 ($ Given - Provider: Ghazala Deleon MEDICAL BILLING COORDINATOR-DRIVER LICENSE TECHNICIAN) 0303 ($ Given - Provider: Sofia Marks RN)0651 ($ Given - Provider: Ghazala Deleon, MEDICAL BILLING COORDINATOR-DRIVER LICENSE TECHNICIAN)1020 ($ Given - Provider: Sindi Packer RN - Comment: loss if iv unable to give ivp pain med.) documented in this encounter Care Teams Telecommunication Systems Designer Relationship Specialty Start Date End Date Jonathan Hartman RN Audio Technician 07/14/15 documented as of this encounter
--- OUTSIDE RECORDS SUMMARY | 2024-04-29 19:20 | XMS_ITS | Encounter Summary ---
Author Organization [facility] Address [address] [place] [address] Care Team Providers Care Helper Metal Hanging Name Role Phone Jonathan Hartman RN Unavailable [phone] Reason for Visit * Reason Comments Pain Abdominal c/o periumbilical pa in x 3 days. Black diarrhea, increased pain today. Nausea. No vomiting. * Auth/Cert Specialty Diagnoses / Procedures Referred By Kaylynn phillips Referred To Contact Diagnoses Acute pancreatitis, unspecified pancreatitis type Referral ID Status Reason Start Date Expiration Date Visits Re quested Visits Authorized [id number] 1 1 Encounter Details Date Type Department Care Team (Latest Contact Info) Description 08/03/2015 7:30 AM CDT - 08/03/2015 8:00 AM CDT Surgery [facility] [place] - Endoscopy Services [address] [place] [phone] Armando Corona MD [address] [place] [address] [address] [place] [address] ESOPHAGOGASTRODUODENOSCOPY (EGD) Surgery Details Date/Time Status Location OR Service Patient Class Case Class Case Type Trauma Case? 08/03/2015 7:30 AM Posted [facility] END[facility] Endo 02 Gastroenterology Inpatient Elective > 5 days Panel 1 Procedure LRB Anes Op Region Wound Class Comments ESOPHAGOGASTRODUODENOSCOPY (EGD) N/A MAC Clean Contaminated ENDOSCOPY GI UPPER WITH BIOPSY Clean Contaminated Surgeon Surgeon Role Service Panel Armando Corona [...] daily as needed for Anxiety Chucho Hinton hzjqwvudev-ewmwhpjincjnm-vcewitxn 50-325-40 MG tablet Commonly known as: FIORICET [...] Answer Comments Your discharge diagnosis is Diverticulitis [[id number]] Follow up with Primary Care Provider (PCP) [...] understood by pt and scripts filled by [facility]. Pt discharged home. * Chucho Hinton [...] tablet 0.25 mg, Oral, TID PRN ?? onnifvbnzp-rtcrkxherhpgf-sugadtmb (FIORICET) 50-325-40 MG tablet 1 Tab, Oral, [...] Outcome: Ongoing Patient utilizes pain medication per jun. Pt able to sleep comfortably now. * [...] tablet 650 mg, Oral, q4h PRN ?? hetvrsgbrs-fvweddejkkpxy-ecbhbdue (FIORICET) 50-325-40 MG tablet 1 Tab, Oral, [...] 73 82 79 Temp: 98.2 ??F Resp: 16 Weight: SpO2: 96% 94% 94% 100% Intake/Output [...] tablet 650 mg, Oral, q4h PRN ?? fqtbgyhuho-tavgffljxblzi-hsmflghs (FIORICET) 50-325-40 MG tablet 1 Tab, Oral, [...] liquid diet. Continues c/o abdominal pain, refuses [place], states [place] doesn't really help her. Pt wants to wait until Dilaudid is due again. * Chari Fontenot RN - 08/03/2015 5:34 AM CDT Shift summary: abdominal pain overnight treated with [place] and Dilaudid. Per pt pain never completely gone but reaches tolerable level. Npo for procedure this am, consent in chart. * Mary Castanon RN - 08/02/2015 7:29 PM CDT Shift highlights: VSS. C/o abdominal pain throughout the day. Dilaudid and [place] given as ordered. C/o migraine once today. [...] Contact Information Primary Emergency Contact: Toi Smith [facility] Relation: Significant other Anticipated Discharge Date: [...] needs please contact: Madalyn Medina RN [phone]. Straightening Machine Feeder Name/Phone number: Madalyn Eschmann, RN * Jaky Pandya RN - 08/02/2015 [...] BID Chucho Hinton MD 40 mg at 08/03/15 2019 ??? heparin injection 5,000 Units 5,000 Units Subcutaneous q8h Chucho Hinton MD 5,000 Units at 08/03/153 ??? HYDROmorphone (DILAUDID) injection 0.6 mg 0.6 [...] Oral q4h PRN Hari Niño MD ??? ftuyxtnvgt-zdbozkxngdaug-bfmkczhl (FIORICET) 50-325-40 MG tablet 1 Tab 1 Tab Oral q4h PRN Chucho Hinton MD 1 Tab at 08/02/15 1047 ? ? sucralfate (CARAFATE) suspension 1 g 1 g Oral 4X/day - AC & HS Chucho Hinton MD 1 g at 08/03/15 2019 ??? 0.9% NaCl infusion Intravenous Continuous Chucho [...] Oral q4h PRN Hari Niño MD ??? wbkzuchpsr-lblimkrvzrlsd-wrjjxjjp (FIORICET) 50-325-40 MG tablet 1 Tab 1 [...] results for input(s): MAGMGDL in the last 01779 hours. No results for input(s): PHOS in the last 25778 hours. No results for input(s): AMYLASE in the last 05633 hours. No results for input(s): PHART, AQX3CUS, PO2ART, I3KCAVWK, BEART, FIO2 in the last 95860 hours. Invalid input(s): XBR8FIL No results for input(s): BNP in the last 91745 hours. Recent Labs Component Name 07/14/15 1343 CDIFFTOXINAB Negative No results for input(s): HGBA1C in the last 13971 hours. No results for input(s): INR in the last 44195 hours. Recent Labs Component Name 08/02/15 1002 CHOL 184 TRIG 156* HDL 43 LDLCALC 110 No results for input(s): PT in the last 25515 hours. No results for input(s): PTT in the last 40371 hours. No results for input(s): T3FREE in the last 32677 hours. No results for input(s): T4FREE in the last 61515 hours. No results for input(s): TSH in the last 77966 hours. Recent Labs Component Name 08/01/15 193 COLORUA Yellow SPECGRAVUA 1.019 PHUA 6.5 PROTEINUA [...] CDTAssociated Order(s): IP CONSULT TO PASTORAL CARE Waitress support to the patient was requested/provided. * [...] Oral q4h PRN Hari Niño MD ??? zyktwossnm-afxoyqgbbjieg-sdomwlxw (FIORICET) 50-325-40 MG tablet 1 Tab 1 [...] (TYLENOL) tablet 650 mg, Oral, q4h PRN utupqernwd-xxqiwjeewlfde-lhhqzhgr (FIORICET) 50-325-40 MG tablet 1 Tab, Oral, [...] 08/01/2015 Recent Labs Component Name 08/02/15 1002 08/01/150 07/15/15 0551 07/13/15 1713 WBC - 9.3 [...] 7.9 EGFR >60 Recent Labs Component Name 08/01/150 07/13/15 1713 SODIUM 137 136 POTASSIUM 4.1 3.8 CHLORIDE 106 107 CO2 21* 20* BUN 13 23* CREATININE 0.90 0.94 GLUCOSE 88 95 CALCIUM 9.3 9.7 Recent Labs Component Name 08/01/15 1850 07/13/15 1713 ALBUMIN 4.3 4.5 ALKPHOS 77 94 ALT 34 35 AST 13 11 TBIL 0.2 0.7 TPROT 7.9 8.9* No results for input(s): INR in the last 03708 hours. No results for input(s): AMYLASE in the last 39176 hours. Recent Labs Component Name 08/01/15 1850 [...] you have further questions. Armando Corona MD [facility], Gastroenterology [facility] Division [facility] office: [phone] Exchange: [phone] documented in this encounter Nursing Notes * [...] review, submitted by ANTHONY Livingston at [employer] [id number] Situation: Patient is a 40 y.o. [...] as 8/10 after second dose of morphine. MD notified and requested order for dilaudid. Will [...] pt appears uncomfortable, HR elevated to 160's. ER at bedside. * Hari Niño MD - 08/01/2015 6:48 PM CDT Images from the original note were not included. Provider contact with the patient: 08/01/2015 18:48 Madalyn Walton [id number] [facility] EM[facility]GENCY [facility]PART[facility] History Chief Complaint Patient [...] 54.0 44.0-73.0 % Lymph 36.4 20.0-43.0 % [place] 7.1 5.0-13.0 % Eos 1.0 0.0-6.0 % Baso 1.0 0.0-2.0 % Immature Grans 0.5 0-1 % Neutro Abs 5.03 2.01-7.14 x10E9/L Lymph Abs 3.39 1.07-3.94 x10E9/L [place] Abs 0.66 0.26-1.07 x10E9/L Eosin Abs 0.09 [...] Yellow, Dark Yellow Clarity UA Clear Specific Mangum UA 1.019 1.005-1.030 pH UA 6.5 5.0-8.0 [...] are otherwise normal. ?? PRELIMINARY REPORT [facility] Patient Name: ISABEL FROST Age: 28 Patient MR NO: [id number] Referring Doctor: Dr. Dickerson Patient Location: Emergency [...] No large ovarian cysts To Talk to Radiologist([phone] or([phone] Leeroy Ching M.D. Electronically Signed Progress Notes 6:49 PM Plan: Labs, CT abdomen/pelvis. 9:35 PM Call out to IPC. 9:36 PM I reevaluated the patient???s medical condition, comfort, and provided a care update. Informed patient and family of admission. 10:33 PM I discussed with Dr. Romero ([facility]) all pertinent aspects of the case including [...] AM Draw 08/05/19 16 7:09 AM CDT HEMOGLOBIN AM Draw 08/04/2015 11:16 AM CDT PATHOLOGY TISSUE EXAM (STL) Routine 07/21 9:31 AM CDT Diagnosis unknown ENDOSCOPY, COLON, [...] - 98.3 fl 08/05/2015 7:28 AM CDT [facility] MCH 28.3 26.7 - 34.0 pg 08/05/2015 7:28 AM CDT [facility] MCHC 32.6 30.8 - 35.9 gm/dL 08/05/2015 7:28 AM CDT [facility] Platelet Count 232 153 - 416 x10E9/L 08/05/2015 7:28 AM CDT [facility] RDW-CV 14.5 12.1 - 14.9 % 08/05/2015 7:28 AM [facility] MPV 8.6(L) 9.4 - 12.9 fl 08/05/2015 7:28 AM [facility] Neutrophils % 39.6(L) 44.0 - 73.0 % 08/05/2015 7:28 AM T [facility] Lymphocytes % 52.4(H) 20.0 - 43.0 % 08/05/2015 7:28 AM [facility] Monocytes % 5.5 5.0 - 13.0 % 08/05/2015 7:28 AM [facility] Eosinophils % 1.1 0.0 - 6.0 % 08/05/2015 7:28 AM [facility] Basophils % 0.9 0.0 - 2.0 % 08/05/2015 7:28 AM [facility] Immature Granulocytes 0.5 0 - 1 % 08/05/2015 7:28 AM [facility] Neutrophil Absolute 1.73(L) 2.01 - 7.14 x10E9/L 08/05/2015 7:28 AM [facility] Lymphocytes Absolute 2.29 1.07 - 3.94 x10E9/L 08/05/2015 7:28 AM [facility] Monocytes Absolute 0.24(L) 0.26 - 1.07 x10E9/L 08/05/2015 7:28 AM T [facility] Eosinophils Absolute 0.05 0 - 0.47 x10E9/L 08/05/2015 7:28 AM T [facility] Basophils Absolute 0.04 0 - 0.08 x10E9/L 08/05/2015 7:28 AM T [facility] Immature Granulocytes Absolute 0.02 0.00 - 0.06 x10E9/L 08/05/2015 7:28 AM T [facility] nRBC Auto 0 /100 WBC 08/05/2015 7:28 AM CDT [facility] Blood BLOOD SPECIMEN / Unknown Lab Venipuncture / Unknown 08/05/2015 7:09 AM CDT 08/05/2015 7:21 AM CDT Armando Corona MD LAB - HEMATOLOGY ORD ERABLES Performing Organization Address [facility] de Phone Number [facility] [address] [phone] * HEMOGLOBIN (08/04/2015 11:16 AM CDT) Hemoglobin 12.6 12.0 - 15.6 gm/dL 08/04/2015 11:28 AM CDT [facility] Blood BLOOD SPECIMEN / Unknown Lab Venipuncture / Unknown 08/04/2015 11:16 AM CDT 08/04/2015 11:22 AM CDT Armando Corona MD LAB - HEMATOLOGY ORD SIDNEYBLES Performing Organization Address [facility] de Phone Number [facility] [address] [place] [address] * GROSS + MICRO EXAM (STL) (08/04/2015 9:31 AM CDT) Case Report Surgical Pathology Report ? Case: [id number] ? Authorizing Provider: ??Armando Corona MD ? Collected: ? 08/04/2015 09:31 AM ? Ordering Location: ? [facility]OSCOPY [facility] ?Received: ?08/04/2015 12:25 PM ? Pathologist: ? Kamilla Bustamante MD ? Specimen: ?Polyp Descending, Descending colon polyp ? 08/05/2015 11:25 AM CDT [facility] Final Diagnosis 1. ??Descending colon, polyp, biopsy: -- ??Hyperplastic polyp SR/alj 08/05/2015 11:25 AM CDT [facility] Gross Description Received in formalin in a container labeled WaltonMadalyn, descending colon polyp. ??The container holds a 0.5 x 0.4 x 0.3 cm baird tissue fragment. ??The specimen is entirely submitted in a cassette labeled A1. ?? DYT/rtc 08/05/2015 11:25 AM CDT [facility] Microscopic Description Microscopic examination reveals colonic mucosal fragment with hyperplastic polyp changes. Malignancy is not seen. SR/alj 08/05/2015 11:25 AM CDT [facility] Pathology/Cytolo gy POLYP / Unknown 08/04/2015 9:31 AM CDT 08/04/2015 12:25 PM CDT Armando Corona MD LAB - PATHOLOGY/CYTO LOGY ORDERABLES Performing Organization Address City/State/[facility] Phone Number [facility] [address] [place] [address] * ENDOSCOPY, COLON, DIAGNOSTIC (08/04/2015 [...] Procedure Code(s): ? --- Professional --- ? 31467, Colonoscopy, flexible; with removal of tumor(s), polyp(s), or ? other lesion(s) by snare technique ? --- Technical --- ? 37065, Colonoscopy, flexible; with removal of tumor(s), polyp(s), [...] abscess ? without bleeding CPT copyright 2015 [employer]. All rights reserved. The codes documented in this report are preliminary and upon remote coders review may be revised to meet current compliance requirements. Armando Corona, 08/04/2015 9:38:09 AM This report has been signed electronically. Number of Addenda: 0 Note Initiated On: 08/04/2015 9:04 AM [facility] ENDOS[facility] 08/04/2015 9:04 AM CDT Narrative Transcriptions Armando Corona MD - 08/04/2015 9:39 AM CDT Colonoscopy * fair prep *few diverticuli * no old or fresh blood * normal terminal ileum rec PRN hyoscyamine Capsule endoscopy today Armando Corona MD GI PROCEDURE ORDERAB LES [facility] ENDOSCOPY * GROSS + MICRO EXAM (STL) (08/03/2015 7:54 AM CDT) Case Report Surgical Pathology Report ? Case: [id number] ? Authorizing Provider: ??Armando Corona MD ? Collected: ? 08/03/2015 07:54 AM ? Ordering Location: ? [facility] ENDOSCOPY [facility] ?Received: ?08/03/2015 12:09 PM ? Pathologist: ? Kamilla Bustamante MD ? Specimen: ?Gastric Biopsy ? 08/04/2015 10:17 AM CDT [facility] Final Diagnosis 1. ??Gastric biopsy: -- ??Chronic gastritis -- ??H. pylori stain negative for bacterial organisms /zoey 08/04/2015 10:17 AM CDT [facility] Gross Description The specimen is received fixed in formalin in 1 container labeled with the patient's name, and gastric biopsy and contains three soft baird-yellow tissue fragments each measuring 0.3 cm in greatest dimension. The specimen is strained through a mesh bag and submitted in toto in cassette A1. JOVANNA/zoey 08/04/2015 10:17 AM CDT [facility] Microscopic Description Microscopic examination reveals gastric antrum and body mucosal fragments with patchy chronic gastritis. Metaplasia, dysplasia, malignancy and granulomas are not seen. H. pylori stain is negative for bacterial organisms. All of the stain(s), control slide(s) and test tissue slide(s) were judged as technically acceptable. /[facility] 08/04/2015 10:17 AM CDT [facility] Pathology/Cytolo gy GASTRIC BIOPSY SPECIMEN / Unknown 08/03/2015 7:54 AM CDT 08/03/2015 12:09 PM CDT Armando Corona MD LAB - PATHOLOGY/CYTO LOGY ORDERABLES [facility] [address], [place] [id number] * EGD (08/03/2015 7:24 AM CDT) Report [...] (Doctor), Roxi Bennett, ANTHONY, Sona Dove, ? [employer] Patient Profile: ?? 40F pmh depression, arthritis, [...] Procedure Code(s): ? --- Professional --- ? 01607, Esophagogastroduod enoscopy, flexible, transoral; with biopsy, ? single or multiple ? --- Technical --- ? 87092, Esophagogastroduod enoscopy, flexible, transoral; with biopsy, ? single or multiple Diagnosis Code(s): ? --- Professional --- ? K29.70, Gastritis, unspecified, without bleeding ? R10.13, Epigastric pain ? R10.33, Periumbilical pain ? K92.1, Melena (includes Hematochezia) ? --- Technical --- ? K29.70, Gastritis, unspecified, without bleeding ? R10.13, Epigastric pain ? R10.33, Periumbilical pain ? K92.1, Melena (includes Hematochezia) CPT copyright 2015 [employer]. All rights reserved. The codes documented in this report are preliminary and upon remote coders review may be revised to meet current compliance requirements. Armando Corona, 08/03/2015 8:00:13 AM This report has been signed electronically. Number of Addenda: 0 Note Initiated On: 08/03/2015 7:24 AM [facility] 08/03/2015 7:24 AM CDT Narrative Transcriptions Armando Corona MD - 08/03/2015 8:00 AM CDT EGD - mild gastritis bx'd, other normal to proximal jejunum Rec Colonoscopy tomorrow Follow [facility] Armando Corona MD GI PROCEDURE ORDERAB LES [facility] * (ABNORMAL) BASIC METABOLIC PANEL (CALCIUM TOTAL) (08/03/2015 4:14 AM CDT) Glucose 83 74 - 106 mg/dL 08/03/2015 5:35 AM CDT [facility] Sodium 141 136 - 145 mmol/L 08/03/2015 5:35 AM CDT [facility] Potassium 4.0 3.5 - 5.1 mmol/L 08/03/2015 5:35 AM CDT [facility] Chloride 107 98 - 107 mmol/L 08/03/2015 5:35 AM CDT [facility] CO2 25 22 - 31 mmol/L 08/03/2015 5:35 AM CDT [facility] Calcium 8.3(L) 8.5 - 10.1 mg/dL 08/03/2015 5:35 AM CDT [facility] Anion Gap 9 5 - 20 mmol/L 08/03/2015 5:35 AM CDT [facility] BUN 6(L) 7 - 21 mg/dL 08/03/2015 5:35 AM CDT [facility] Creatinine 0.70 0.50 - 1.30 mg/dL 08/03/2015 5:35 AM CDT [facility] eGFR by MDRD >60 >60 mL/min/1.7 3m2 08/03/2015 5:35 AM CDT [facility] eGFR by MDRD >60 >60 mL/min/1.7 3m2 08/03/2015 5:35 AM CDT [facility] Blood BLOOD SPECIMEN / Unknown Lab Venipuncture / Unknown 08/03/2015 4:14 AM CDT 08/03/2015 4:52 AM CDT Akira Romero MD LAB - CHEMISTRY MORGAN YEE Performing Organization Address [facility] Co de Phone Number [facility] [address] [place] [address] * CULTURE STOOL+ E COLI SHIGA-LIKE TOXIN (08/02/2015 4:51 PM CDT) Culture No growth Salmonella, Shigella, Campylobacter , E. coli 0157:h7 or Yersinia CARLOS EDUARDO 08/04/2015 6:27 AM CDT [facility] Culture Negative E. coli Shiga-like toxin (NM) CARLOS EDUARDO 08/04/2015 6:27 AM CDT [facility] Stool STOOL SPECIMEN / Unknown Collection / Unknown 08/02/2015 4:51 PM CDT 08/02/2015 4:56 PM CDT Chucho Hinton MD LAB - MICROBIOLOGY O ASHLEIGH Performing Organization Address City/[facility]/ZIP Co de Phone Number [facility] [address] [phone] * (ABNORMAL) LIPID PROFILE (08/02/2015 10:02 AM CDT) Cholesterol 184 <200 mg/dL 08/02/2015 10:49 AM CDT [facility] Triglycerides 156(H) <150 mg/dL 08/02/2015 10:49 AM CDT [facility] HDL Cholesterol 43 >40 mg/dL 08/02/2015 10:49 AM CDT [facility] LDL Calculated 110 <130 mg/dL 08/02/2015 10:49 AM CDT [facility] VLDL Calculated 31(H) <=30 mg/dL 08/02/2015 10:49 AM CDT [facility] Chol HDL Ratio 4.3 <4.5 08/02/2015 10:49 AM CDT [facility] LDL/HDL Ratio 2.6 <5.0 08/02/2015 10:49 AM CDT [facility] Blood BLOOD SPECIMEN / Unknown Lab Venipuncture / Unknown 08/02/2015 10:02 AM CDT 08/02/2015 10:13 AM CDT Chucho Hinton MD LAB - CHEMISTRY MORGAN YEE Performing Organization Address [facility] Co de Phone Number [facility] [address] [place] [phone] * ALCOHOL ETHYL BLOOD (08/02/2015 10:02 AM CDT) Ethanol <10 <10 mg/dL 08/02/2015 10:49 AM CDT [facility] Ethanol Calculated <0.100 gm/dL 08/02/2015 10:49 AM CDT [facility] Blood BLOOD SPECIMEN / Unknown Lab Venipuncture / Unknown 08/02/2015 10:02 AM CDT 08/02/2015 10:13 AM CDT Narrative [facility] - 08/02/2015 10:49 AM CDT Non Legal Serum Alcohol Chucho Hinton MD LAB - CHEMISTRY MORGAN YEE Performing Organization Address [facility] Co de Phone Number [facility] [address] [place] [phone] * HGB HCT PANEL (08/02/2015 10:02 AM CDT) Hemoglobin 12.3 12.0 - 15.6 gm/dL 08/02/2015 10:37 AM CDT [facility] Hematocrit 37.6 35.9 - 45.5 % 08/02/2015 10:37 AM CDT [facility] Blood BLOOD SPECIMEN / Unknown Lab Venipuncture / Unknown 08/02/2015 10:02 AM CDT 08/02/2015 10:13 AM CDT Akira Romero MD LAB - HEMATOLOGY [place] Performing Organization Address [facility] Co de Phone Number [facility] [address] [place] [phone] * CT ABDOMEN AND PELVIS WITH IV [...] adelso CARLOS EDUARDO 08/03/2015 9:25 AM CDT [facility] Urine URINE SPECIMEN OBTAINED BY CLEAN CATCH PROCEDURE / Unknown Collection / Unknown 08/01/2015 7:35 PM CDT 08/01/2015 7:39 PM CDT Hari Niño MD LAB - MICROBIOLOGY O RDERABLES Performing Organization Address City/[facility]/ZIP Co de Phone Number [facility] [address] [phone] * (ABNORMAL) URINALYSIS MICROSCOPIC ONLY W/REFLEX CULTURE (08/01/2015 7:35 PM CDT) Pathologist [facility] Bacteria UA 1+(A) None Seen 08/01/2015 8:02 PM CDT [facility] Epithelial Cell UA 2-5 0-2, 2-5 # /hpf 08/01/2015 8:02 PM CDT [facility] Mucus UA Trace 08/01/2015 8:02 PM CDT [facility] Hyaline Casts 0-2 0 - 2 # /lpf 08/01/2015 8:02 PM CDT [facility] Calcium Oxalate Crystals 2+(A) None Seen 08/01/2015 8:02 PM CDT [facility] Urine URINE SPECIMEN OBTAINED BY CLEAN CATCH PROCEDURE / Unknown Collection / Unknown 08/01/2015 7:35 PM CDT 08/01/2015 7:39 PM CDT Hari Niño MD LAB - URINALYSIS ORD ERABLES Performing Organization Address City/[facility]/ZIP Co de Phone Number [facility] [address] [place] [address] * (ABNORMAL) URINALYSIS ROUTINE W/REFLEX TO CULTURE (08/01/2015 7:35 PM CDT) Color UA Yellow Straw, Yellow, Dark Yellow 08/01/2015 7:45 PM CDT [facility] Clarity UA Clear 08/01/2015 7:45 PM CDT [facility] Specific Mangum UA 1.019 1.005 - 1.030 08/01/2015 7:45 PM CDT [facility] pH UA 6.5 5.0 - 8.0 pH 08/01/2015 7:45 PM CDT [facility] Protein UA Negative Negative 08/01/2015 7:45 PM CDT [facility] Blood UA Negative Negative 08/01/2015 7:45 PM CDT [facility] Leukocyte UA 1+(A) Negative 08/01/2015 7:45 PM CDT [facility] Nitrite UA Negative Negative 08/01/2015 7:45 PM CDT [facility] Glucose UA Negative Negative 08/01/2015 7:45 PM CDT [facility] Ketone UA Negative Negative 08/01/2015 7:45 PM CDT [facility] Bilirubin UA Negative Negative 08/01/2015 7:45 PM CDT [facility] Urobilinogen UA 0.2 0.1 - 1.0 EU/dL 08/01/2015 7:45 PM CDT [facility] WBC UA Auto 2-5 0-2, 2-5 # /hpf 08/01/2015 7:45 PM CDT [facility] RBC UA Auto 2-5 0-2, 2-5 # /hpf 08/01/2015 7:45 PM CDT [facility] Reflex Status Culture to follow 08/01/2015 7:45 PM CDT [facility] Urine URINE SPECIMEN OBTAINED BY CLEAN CATCH PROCEDURE / Unknown Collection / Unknown 08/01/2015 7:35 PM CDT 08/01/2015 7:39 PM CDT Hari Niño MD LAB - URINALYSIS ORD ERABLES [facility] [address] [place] [address] * TYPE + SCREEN PANEL (08/01/2015 7:19 PM CDT) ABO A 08/01/2015 8:23 PM CDT [facility] Rh Type Positive 08/01/2015 8:23 PM CDT [facility] Comment:History check perfor med. Retype required. Antibody Screen Negative 08/01/2015 8:23 PM CDT [facility] Miscellaneous samples (specimen) BLOOD SPECIMEN / Unknown Venipuncture / Unknown 08/01/2015 7:19 PM CDT 08/01/2015 7:22 PM CDT Hari Niño MD LAB - BLOOD BANK ORD ERABLES Performing Organization Address [facility] Co de Phone Number [facility] [address] [place] [address] * (ABNORMAL) LIPASE BLOOD (08/01/2015 6:50 PM CDT) Lipase 681(H) 10 - 220 U/L 08/01/2015 7:14 PM CDT [facility] Blood BLOOD SPECIMEN / Unknown Venipuncture / Unknown 08/01/2015 6:50 PM CDT 08/01/2015 6:54 PM CDT Hari Niño MD LAB - CHEMISTRY MORGAN YEE Performing Organization Address [facility] Co de Phone Number [facility] [address] [place] [address] * (ABNORMAL) COMPREHENSIVE METABOLIC PANEL (08/01/2015 6:50 PM CDT) Glucose 88 74 - 106 mg/dL 08/01/2015 7:14 PM CDT [facility] Sodium 137 136 - 145 mmol/L 08/01/2015 7:14 PM CDT [facility] Potassium 4.1 3.5 - 5.1 mmol/L 08/01/2015 7:14 PM CDT [facility] Chloride 106 98 - 107 mmol/L 08/01/2015 7:14 PM CDT [facility] CO2 21(L) 22 - 31 mmol/L 08/01/2015 7:14 PM CDT [facility] Calcium 9.3 8.5 - 10.1 mg/dL 08/01/2015 7:14 PM CDT [facility] Anion Gap 10 5 - 20 mmol/L 08/01/2015 7:14 PM CDT [facility] BUN 13 7 - 21 mg/dL 08/01/2015 7:14 PM CDT [facility] Creatinine 0.90 0.50 - 1.30 mg/dL 08/01/2015 7:14 PM CDT [facility] Alkaline Phosphatase 77 38 - 126 U/L 08/01/2015 7:14 PM CDT [facility] ALT 34 12 - 78 U/L 08/01/2015 7:14 PM CDT [facility] AST 13 5 - 40 U/L 08/01/2015 7:14 PM CDT [facility] Protein Total 7.9 6.4 - 8.2 gm/dL 08/01/2015 7:14 PM CDT [facility] Albumin 4.3 3.4 - 5.0 gm/dL 08/01/2015 7:14 PM CDT [facility] Bilirubin Total 0.2 0.2 - 1.0 mg/dL 08/01/2015 7:14 PM CDT [facility] eGFR by MDRD >60 >60 mL/min/1.7 3m2 08/01/2015 7:14 PM CDT [facility] eGFR by MDRD >60 >60 mL/min/1.7 3m2 08/01/2015 7:14 PM CDT [facility] Blood BLOOD SPECIMEN / Unknown Venipuncture / Unknown 08/01/2015 6:50 PM CDT 08/01/2015 6:54 PM CDT Hari Niño MD LAB - CHEMISTRY MORGAN YEE [facility] Organization Address City/State/[facility] Co de Phone Number [facility] [address] [place] [address] * (ABNORMAL) CBC W AUTO DIFFERENTIAL (08/01/2015 6:50 PM CDT) [facility] WBC 9.3 4.4 - 10.7 x10E9/L 08/01/2015 6:57 PM CDT [facility] WBC Corrected x10E9/L 08/01/2015 6:57 PM CDT [facility] RBC 5.35(H) 3.80 - 5.20 x10E12/L 08/01/2015 6:57 PM CDT [facility] Hemoglobin 15.1 12.0 - 15.6 gm/dL 08/01/2015 6:57 PM [facility] Hematocrit 44.9 35.9 - 45.5 % 08/01/2015 6:57 PM [facility] MCV 83.9 80.7 - 98.3 fl 08/01/2015 6:57 PM [facility] MCH 28.2 26.7 - 34.0 pg 08/01/2015 6:57 PM [facility] MCHC 33.6 30.8 - 35.9 gm/dL 08/01/2015 6:57 PM [facility] Platelet Count 339 153 - 416 x10E9/L 08/01/2015 6:57 PM [facility] RDW-CV 15.0(H) 12.1 - 14.9 % 08/01/2015 6:57 PM [facility] MPV 8.3(L) 9.4 - 12.9 fl 08/01/2015 6:57 PM [facility] Neutrophils % 54.0 44.0 - 73.0 % 08/01/2015 6:57 PM T [facility] Lymphocytes % 36.4 20.0 - 43.0 % 08/01/2015 6:57 PM T [facility] Monocytes % 7.1 5.0 - 13.0 % 08/01/2015 6:57 PM [facility] Eosinophils % 1.0 0.0 - 6.0 % 08/01/2015 6:57 PM [facility] Basophils % 1.0 0.0 - 2.0 % 08/01/2015 6:57 PM [facility] Immature Granulocytes 0.5 0 - 1 % 08/01/2015 6:57 PM [facility] Neutrophil Absolute 5.03 2.01 - 7.14 x10E9/L 08/01/2015 6:57 PM T [facility] Lymphocytes Absolute 3.39 1.07 - 3.94 x10E9/L 08/01/2015 6:57 PM [facility] Monocytes Absolute 0.66 0.26 - 1.07 x10E9/L 08/01/2015 6:57 PM T [facility] Eosinophils Absolute 0.09 0 - 0.47 x10E9/L 08/01/2015 6:57 PM CDT [facility] Basophils Absolute 0.09(H) 0 - 0.08 x10E9/L 08/01/2015 6:57 PM CDT [facility] Immature Granulocytes Absolute 0.05 0.00 - 0.06 x10E9/L 08/01/2015 6:57 PM CDT [facility] nRBC Auto 0 /100 WBC 08/01/2015 6:57 PM CDT [facility] Blood BLOOD SPECIMEN / Unknown Venipuncture / Unknown 08/01/2015 6:50 PM CDT 08/01/2015 6:54 PM CDT Hari Niño MD LAB - HEMATOLOGY ORD ERABLES Performing Organization Address City/State/[facility] Co de Phone Number [facility] [address] [place] [address] documented in this encounter Visit Diagnoses Diagnosis Acute pancreatitis, unspecified pancreatitis type- Primary Abdominal pain, generalized Pancreatitis, unspecified pancreatitis type (HCC) Diarrhea Diagnosis unknown Other unknown and unspecified cause of morbidity or mortality Diagnosis unknown Other unknown and unspecified cause [...] Given 08/01/2015 7:21 PM CDT 1,000 mL pfbwxxjaky-zxvdqlnidmfpl-qvw feine (FIORICET) 50-325-40 MG tablet 1 Tab [...] RN)2143 ($ Given - Provider: Maria C Crocker RN) 0600 (Not Administered - Provider: Maria C [...] ($ Given - Provider: Maria C Crocker, RN) 0800 (Not Administered - Provider: Janina Espinoza RN - Reason: Discontinued by physician) Continuous Medication Order 08/03/2015 08/04/2015 08/05/2015 0.9% NaCl infusion (CANCELED) at 100 mL/hr, Intravenous, CONTINUOUS, Starting on Sat08/02/15 at 1145, Until Sat08/05/15 at 1459 0032 ($ New Bag/Syringe - Provider: Chari Fontenot RN)2300 (Restarted - Provider: Maria C Crocker, ANTHONY) 0932 (Anesthesia Volume Adjustment - Provider: Hari Guillory APRN-RED CROSS WORKER)1114 ($ New Bag/Syringe - Provider: Janina Espinoza RN)2054 ($ New Bag/Syringe - Provider: Ghazala Deleon APRN-SAWMILL RELIEF WORKER) 0651 ($ New Bag/Syringe - Provider: Ghazala Deleon APRN-SAWMILL RELIEF WORKER) 0.9% NaCl infusion (CANCELED) at 20 mL/hr, Intravenous, CONTINUOUS, Starting on Sat08/03/15 at 0730, Until Sat08/03/15 at 0846, Pre-procedure (GI) 0700 ($ New Bag/Syringe - Provider: Peg Lorenzana RN)0754 (Anesthesia Volume Adjustment - Provider: Brionna Fournier APRN-RED CROSS WORKER) PRN Medication Order 08/03/2015 08/04/2015 08/05/2015 ALPRAZolam [...] Ghazala Deleon APRN-NOEMY)0521 ($ Given - Provider: Gahzala Deleon APRN-SAWMILL RELIEF WORKER) HYDROmorphone (DILAUDID) injection 1 mg (CANCELED) 1 [...] EVERY 4 HOURS PRN, Nausea/Vomiting, Starting on Tu08/02/15 at 0157, Until Sat08/05/15 at 1459 1114 [...] Crocker RN)1419 ($ Given - Provider: Janina Espinzoa RN)2054 ($ Given - Provider: Ghazala Deleon APRN-NOEMY) 0303 ($ Given - Provider: Sofia Marks RN)0651 ($ Given - Provider: Ghazala Deleon APRN-NOEMY)1020 ($ Given - Provider: Sindi Packer RN - Comment: loss if iv unable to give ivp pain med.) documented in this encounter Care Teams Helper Metal Hanging Relationship Specialty Start Date End Date Jonathan Hartman RN Straightening Machine Feeder 07/14/15 documented as of this encounter
--- OUTSIDE RECORDS SUMMARY | 2024-04-29 19:20 | XMS_ITS | Encounter Summary ---
Author Organization [facility] Address [address] [place] [address] Care Team Providers Care Occupational Health Coordinator Name Role Phone Jonathan Hartman Rhett RN Unavailable [phone] Reason for Visit * Auth/Cert Specialty Diagnoses / Procedures Referred By Kaylynn phillips Referred To Contact Diagnoses Acute pancreatitis, unspecified pancreatitis type Referral ID Status Reason Start Date Expiration Date Visits Re quested Visits Authorized [id number] 1 1 Encounter Details Date Type Department Care Team (Late st Contact Info) Description 08/04/2015 9:12 AM CDT Anesthesia Event [facility] [address] [place] [address] Jorge Lucio DO [address] [facility] [place] [address] Jg Maldonado MD [address] [facility] [place] [address] Anesthesia Record Procedure Summary Procedure Name Responsible Anesthesiologist Anesthesia Start Time Anesthesia Stop Time COLONOSCOPY SCREEN Jorge Lucio DO 08/04/15 0912 0 08/04/15 0932 Events Date Time Event Comment 08/04/2015 0739 0912 An Start 0912 An Start Data 0913 PT Reassessment Patient and Vital Signs reassessed prior to induction. 0932 Elect Sign The providers l isted as staff are the responsible providers for the case. 0932 an stop data 0932 An Stop 0933 Handoff Checklist follo wed: 1. Identification of patient 2. Identification of responsible nurse 3. Discussion of pertinent medical history 4. Discussion of surgical/procedure course 5. Intraoperative anesthetic management and concerns 6. Expectations/plans for the early post-procedure period 7. Opportunity for questions and acknowledgement of report Meds Name Total lidocaine (XYLOCAINE) 2% injection (20 m g/ml) 40 mg propofol (DIPRIVAN) injection 10mg/ml (E NDO USE) 23 mL 0.9% NaCl infusion 50 mL * Agents Name O2 * Blood No blood administrations on file. Lines, Drains, and Airways Type Details Placement Removal Peripheral IV Date: 08/01/15; Time : 1903; Orientation: Left; Placed By: magnolia moore; Tolerance: Well 08/01/151903 by Marta Marcus RN 08/05/151958 by [employer], Auto Release documented in this encounter Social [...] as of this encounter Progress Notes * Hari Guillory, CERTIFIED PUBLIC ACCOUNTANT-MASTER PLUMBER - 08/04/2015 9:35 AM CDT ANESTHESIA POSTPROCEDURE EVALUATION Madalyn Walton is a 40 y.o. female Temp: 36.3 ??C Pulse: 73 Resp: 18 BP: 133/82 mmHg SpO2: 96 % Pain Rating Score #1: 6 Anesthesia Type: MAC Mental status: sufficiently recovered from acute administration of anesthesia to participate in theevaluation. Level of consciousness: awake No numbness, tingling or visual disturbances present. General appearance: well-appearing Respiratory function: natural airway. Cardiac: stable Pain: comfortable/acceptable PONV: None Postop hydration: adequate. Patient may be released from anesthesia care. Perioperative Complications: No value filed. ASA/AQI Tracking Events: No value filed. documented in this encounter Consult Notes * Kenan García, CERTIFIED PUBLIC ACCOUNTANT-MASTER PLUMBER - 08/04/2015 7:37 AM CDT Pre-anesthesia Evaluation Procedure(s): COLONOSCOPY SCREEN (N/A ) Diagnosis: Acute pancreatitis, unspecified pancreatitis type [K85.9];D* Vital Signs: Temp: 36.3 ??C (08/04 407) Pulse: 77 (08/04 407) Resp: 18 (08/04 407) BP: 129/66 mmHg (08/04 407) SpO2: 98 % (08/04 407) BMI: Estimated body mass index is 28.71 [...] upper 08/03/2015 ENDOSCOPY GI UPPER WITH BIOPSY reports that [...] Frequency Provider Last Rate Last Dose ??? pantoprazole (PROTONIX) injection 40 mg 40 mg Intravenous BID Chuhco Hinton MD 40 mg at 08/03/15 2019 [...] Oral q4h PRN Hari Niño MD ??? yyanjevszv-httpnndtqvmft-txhhjbuk (FIORICET) 50-325-40 MG tablet 1 Tab 1 [...] 1-10 mL Intracatheter PRN Hari Niño MD Physical Exam: NPO status: no solids for 6 hours Oriented to person, place and time Airway: II TM distance: >3 FB Mouth opening: >2.5 FB Neck ROM: full Dental exam findings: normal/ok Pulmonary exam: breath sounds CTA Heart sounds: S1 S2 Review of Systems: Negative for anesthesia complications Reviewed labs Recent Labs Component Name 08/01/15 1940 HCGURINE Negative Recent Labs Component Name 08/02/15 1002 08/01/15 1850 07/15/15 0551 07/13/15 1713 WBC - 9.3 5.5 11.3* HGB 12.3 15.1 12.5 16.2* HCT 37.6 44.9 38.2 49.0* PLTCOUNT - 339 243 375 Plan for Anesthesia: ASA Score: 2. Anesthesia plan: MAC Planned method of induction: intravenous Planned postop destination: endo Anesthesia plan, risks and benefits discussed with patient Anesthesia consent: obtained Plan accepted yes Discussed anesthesia plan with: anesthesiologist. Recent Labs Component Name 08/02/15 1002 08/01/15 1850 07/15/15 0551 07/13/15 1713 WBC - 9.3 5.5 11.3* HGB 12.3 15.1 12.5 16.2* HCT 37.6 44.9 38.2 49.0* PLTCOUNT - 339 243 375 No results for input(s): [id number], GEXUVPYN7BD, [id number], [id number], [id number], [id number], HILLHQ1OM in the last 47940 hours. documented in this encounter Plan of Treatment Not on file documented as of this encounter Visit Diagnoses Not on filedocumented in this encounter Administered Medications Inactive Administered Medications - up to 3 most recent administrations Medication Order MAR Action Action Date Dose Rate Site lidocaine (XYLOCAINE) 2 % injection PRN, Starting on Leydi 08/04/15 at 0918, Until Leydi 08/04/15 at 0932, Anesthesia Intra-op $ Given 08/04/2015 9:18 AM CDT 40 mg propofol (DIPRIVAN) injection CONTINUOUS PRN, Starting on Leydi 08/04/15 at 0918, Until Leydi 08/04/15 at 0932, Anesthesia Intra-op $ New Bag/Syringe 08/04/2015 9:18 AM CDT documented in this encounter Care Teams Occupational Health Coordinator Relationship Specialty Start Date End Date Jonathan Hartman RN Windows Security Analyst 07/14/15 documented as of this encounter
--- OUTSIDE RECORDS SUMMARY | 2024-04-29 19:20 | XMS_ITS | Encounter Summary ---
Author Organization [facility] Address [address] [place] [address] Care Team Providers Care Inclusion Paraeducator Name Role Phone Jonathan Hartman Rhett RN Unavailable [phone] Encounter Details Date Type Department Care Team (Late st Contact Info) Description 09/29/2015 Orders Only [facility] - [address] [id number] Armando Corona MD [address] [place] [id number] Gastroesophageal reflux disease without esophagitis Social History Tobacco Use Types Packs/Day Years [...] Progress Notes * Curtis Garland I - 09/29/2015 3:41 PM CDT Patient called requesting a refill on Protonix 40mg take 1 tab q day. documented in this encounter Plan of Treatment Not on file documented as of this encounter Visit Diagnoses Diagnosis Gastroesophageal reflux disease without esophagitis- Primary Esophageal reflux documented in this encounter Care Teams Inclusion Paraeducator Relationship Specialty Start Date End Date Jonathan Hartman, RN Narcotics Agent 07/14/15 documented as of this encounter
--- OUTSIDE RECORDS SUMMARY | 2024-04-29 19:20 | XMS_ITS | Encounter Summary ---
Author Organization [facility] Address [address] [address] Care Team Providers Care Regulatory Coordinator Name Role Phone Jonathan Hartman RN Unavailable [phone] Reason for Visit * Reason Comments Pain Abdominal c/o periumbilical pa in x 3 days. Black diarrhea, increased pain today. Nausea. No vomiting. * Auth/Cert Specialty Diagnoses / Procedures Referred By Kaylynn phillips Referred To Contact Diagnoses Acute pancreatitis, unspecified pancreatitis type Referral ID Status Reason Start Date Expiration Date Visits Re quested Visits Authorized [id number] 1 1 Encounter Details Date Type Department Care Team (Late st Contact Info) Description 08/04/2015 9:00 AM CDT - 08/04/2015 9:30 AM CDT [facility] - End[facility] Services [address] [place] [id number] Armando Corona MD [address] [place] [address] [place] [id number] COLONOSCOPY SCREEN Surgery Details Date/Time Status Location OR Service Patient Class Case Class Case Type Trauma Case? 08/04/2015 9:00 AM Posted [facility] Endo 04 Gastroenterology Inpatient Elective > 5 days Panel 1 Procedure LRB Anes Op Region Wound Class Comments COLONOSCOPY SCREEN N/A MAC Clean Conta minated COLONOSCOPY WITH REMOVAL OF TUMOR OR POLYP BY SNARE TECHNIQUE Clean Contaminat ed Surgeon Surgeon Role Service Panel Armando Corona [...] daily as needed for Anxiety Chucho Hinton vpbklhekca-sjrwuavlgcuau-jnsnzzxd 50-325-40 MG tablet Commonly known as: FIORICET [...] Answer Comments Your discharge diagnosis is Diverticulitis [840025] Follow up with Primary Care Provider (PCP) [...] understood by pt and scripts filled by [facility]. Pt discharged home. * Chucho Hinton [...] tablet 0.25 mg, Oral, TID PRN ?? yvwrlwwgmk-bvtejurmakahw-qvingwwr (FIORICET) 50-325-40 MG tablet 1 Tab, Oral, [...] 82 Temp: 98.6 ??F 98.4 ??F Resp: Weight: SpO2: 97% 94% 100% 100% Intake/Output [...] tablet 650 mg, Oral, q4h PRN ?? bslenglhce-kgucaofgimjip-qxkkaapn (FIORICET) 50-325-40 MG tablet 1 Tab, Oral, [...] tablet 650 mg, Oral, q4h PRN ?? fwujwsnyvc-ivhwufknqsbdk-ooopriio (FIORICET) 50-325-40 MG tablet 1 Tab, Oral, [...] liquid diet. Continues c/o abdominal pain, refuses [place], states [place] doesn't really help her. Pt wants to wait until Dilaudid is due again. * Chari Fontenot RN - 08/03/2015 5:34 AM CDT Shift summary: abdominal pain overnight treated with [place] and Dilaudid. Per pt pain never completely gone but reaches tolerable level. Npo for procedure this am, consent in chart. * Mary Castanon RN - 08/02/2015 7:29 PM CDT Shift highlights: VSS. C/o abdominal pain throughout the day. Dilaudid and [place] given as ordered. C/o migraine once today. [...] Extended Emergency Contact Information Primary Emergency Contact: Jeraldrossmaria luisaToi [facility] Relation: Significant other Anticipated Discharge Date: Anticipated [...] needs please contact: Madalyn Medina RN [phone]. Ups Driver Name/Phone number: Madalyn Medina RN * Jaky [...] Oral q4h PRN Hari Niño MD ??? pulmfshkat-kflgcrumffjns-xhltylcj (FIORICET) 50-325-40 MG tablet 1 Tab 1 [...] Oral q4h PRN Hari Niño MD ??? lpuydzucdi-kgjwdhdghgisz-aotwyyvp (FIORICET) 50-325-40 MG tablet 1 Tab 1 [...] results for input(s): MAGMGDL in the last 20656 hours. No results for input(s): PHOS in the last 13521 hours. No results for input(s): AMYLASE in the last 33520 hours. No results for input(s): PHART, PUJ7VZS, PO2ART, M3FTAAFD, BEART, FIO2 in the last 28280 hours. Invalid input(s): RLG9KHM No results for input(s): BNP in the last 57295 hours. Recent Labs Component Name 07/14/15 1343 CDIFFTOXINAB Negative No results for input(s): HGBA1C in the last 07055 hours. No results for input(s): INR in the last 56801 hours. Recent Labs Component Name 08/02/15 1002 CHOL 184 TRIG 156* HDL 43 LDLCALC 110 No results for input(s): PT in the last 86922 hours. No results for input(s): PTT in the last 81239 hours. No results for input(s): T3FREE in the last 39579 hours. No results for input(s): T4FREE in the last 71787 hours. No results for input(s): TSH in the last 99860 hours. Recent Labs Component Name 08/01/15 193 [...] documented in this encounter Consult Notes * Dewhurst, Nicky C - 08/02/2015 3:28 PM CDTAssociated Order(s): IP CONSULT TO PASTORAL CARE Receiving Operator support to the patient was requested/provided. [...] Oral q4h PRN Hari Niño MD ??? qisioriear-jplptueeyvdvp-knmsknur (FIORICET) 50-325-40 MG tablet 1 Tab 1 [...] (TYLENOL) tablet 650 mg, Oral, q4h PRN uzrestbkwr-ajcovmiiyrkmb-rpiaulot (FIORICET) 50-325-40 MG tablet 1 Tab, Oral, [...] CALCIUM 9.3 9.7 Recent Labs Component Name 08/01/150 07/13/15 1713 ALBUMIN 4.3 4.5 ALKPHOS 77 94 ALT 34 35 AST 13 11 TBIL 0.2 0.7 TPROT 7.9 8.9* No results for input(s): INR in the last 84660 hours. No results for input(s): AMYLASE in the last 50467 hours. Recent Labs Component Name 08/01/15 1850 [...] you have further questions. Armando Corona MD [facility], Gastroenterology [facility] office: [phone] Exchange: [phone] documented in this encounter Nursing Notes * [...] review, submitted by ANTHONY Livingston at [facility] [id number] Situation: Patient is a 40 y.o. [...] with the patient: 08/01/2015 18:48 Madalyn Walton [id number] [facility] EMERGENCY DEPARTMENT History Chief [...] 54.0 44.0-73.0 % Lymph 36.4 20.0-43.0 % [place] 7.1 5.0-13.0 % Eos 1.0 0.0-6.0 % Baso 1.0 0.0-2.0 % Immature Grans 0.5 0-1 % Neutro Abs 5.03 2.01-7.14 x10E9/L Lymph Abs 3.39 1.07-3.94 x10E9/L [place] Abs 0.66 0.26-1.07 x10E9/L Eosin Abs 0.09 [...] Yellow, Dark Yellow Clarity UA Clear Specific [place] UA 1.019 1.005-1.030 pH UA 6.5 5.0-8.0 [...] structures are otherwise normal. ?? PRELIMINARY REPORT [facility] Patient Name: ISABEL FROST Age: 28 Patient MR NO: [id number] Referring Doctor: Dr. Dickerson Patient Location: Emergency [...] No large ovarian cysts To Talk to Radiologist([phone] [phone] Leeroy Ching M.D. Electronically Signed Progress Notes 6:49 PM Plan: Labs, CT abdomen/pelvis. 9:35 PM Call out to IPC. 9:36 PM I reevaluated the patient???s medical condition, comfort, and provided a care update. Informed patient and family of admission. 10:33 PM I discussed with Dr. Romero ([facility]) all pertinent aspects of the [...] DIFFERENTIAL AM Draw 08/05/2015 7:09 AM CDT HEMOGLOBIN AM Draw 08/04/2015 11:16 AM CDT PATHOLOGY TISSUE EXAM (STL) Routine 08/04/2015 9:31 AM CDT Diagnosis unknown COLONOSCOPY WITH REMOVAL OF TUMOR OR POLYP BY SNARE TECHNIQUE 08/04/2015 9:12 AM CDT Diagnosis unknown COLONOSCOPY SCREEN 08/04/2015 9: 12 AM CDT Diagnosis unknown ENDOSCOPY, COLON, DIAGNOSTIC [...] - 34.0 pg 08/05/2015 7:28 AM CDT [facility] MCHC 32.6 30.8 - 35.9 gm/dL 08/05/2015 7:28 AM T [facility] Platelet Count 232 153 - 416 x10E9/L 08/05/2015 7:28 AM T [facility] RDW-CV 14.5 12.1 - 14.9 % 08/05/2015 7:28 AM CDT [facility] MPV 8.6(L) 9.4 - 12.9 fl 08/05/2015 7:28 AM [facility] Neutrophils % 39.6(L) 44.0 - 73.0 % 08/05/2015 7:28 AM [facility] Lymphocytes % 52.4(H) 20.0 - 43.0 % 08/05/2015 7:28 AM [facility] Monocytes % 5.5 5.0 - 13.0 % 08/05/2015 7:28 AM [facility] Eosinophils % 1.1 0.0 - 6.0 % 08/05/2015 7:28 AM [facility] Basophils % 0.9 0.0 - 2.0 % 08/05/2015 7:28 AM [facility] Immature Granulocytes 0.5 0 - 1 % 08/05/2015 7:28 AM [facility] Neutrophil Absolute 1.73(L) 2.01 - 7.14 x10E9/L 08/05/2015 7:28 AM [facility] Lymphocytes Absolute 2.29 1.07 - 3.94 x10E9/L 08/05/2015 7:28 AM [facility] Monocytes Absolute 0.24(L) 0.26 - 1.07 x10E9/L 08/05/2015 7:28 AM [facility] Eosinophils Absolute 0.05 0 - 0.47 x10E9/L 08/05/2015 7:28 AM [facility] Basophils Absolute 0.04 0 - 0.08 x10E9/L 08/05/2015 7:28 AM [facility] Immature Granulocytes Absolute 0.02 0.00 - 0.06 x10E9/L 08/05/2015 7:28 AM [facility] nRBC Auto 0 /100 WBC 08/05/2015 7:28 AM [facility] Blood BLOOD SPECIMEN / Unknown Lab Venipuncture / Unknown 08/05/2015 7:09 AM CDT 08/05/2015 7:21 AM CDT Armando Corona MD LAB - HEMATOLOGY ORD ERABLES Performing Organization Address City/[facility]/ZIP Co de Phone Number [facility] [address] [place] [address] * HEMOGLOBIN (08/04/2015 11:16 AM CDT) Hemoglobin 12.6 12.0 - 15.6 gm/dL 08/04/2015 11:28 AM CDT [facility] Blood BLOOD SPECIMEN / Unknown Lab Venipuncture / Unknown 08/04/2015 11:16 AM CDT 08/04/2015 11:22 AM CDT Armando Corona MD LAB - HEMATOLOGY ORD WAUCONDABLES Performing Organization Address [facility] Co de Phone Number [facility] [address] [place] [address] * GROSS + MICRO EXAM (STL) (08/04/2015 9:31 AM CDT) Pathologist [facility] Case Report Surgical Pathology Report ? Case: [id number] ? Authorizing Provider: ??Armando Corona MD ? Collected: ? 08/04/2015 09:31 AM ? Ordering Location: ? [facility] ?Received: ?08/04/2015 12:25 PM ? Pathologist: ? Kamilla Bustamante MD ? Specimen: ?Polyp Descending, Descending colon polyp ? 08/05/2015 11:25 AM CDT [facility] Final Diagnosis 1. ??Descending colon, polyp, biopsy: -- ??Hyperplastic polyp SR/alj 08/05/2015 11:25 AM CDT [facility] Gross Description Received in formalin in a container labeled Anton, Madalyn, descending colon polyp. ??The container holds a 0.5 x 0.4 x 0.3 cm baird tissue fragment. ??The specimen is entirely submitted in a cassette labeled A1. ?? DYT/rtc 08/05/2015 11:25 AM CDT [facility] Microscopic Description Microscopic examination reveals colonic mucosal fragment with hyperplastic polyp changes. Malignancy is not seen. SR/alj 08/05/2015 11:25 AM CDT [facility] Pathology/Cytolo gy POLYP / Unknown 08/04/2015 9:31 AM CDT 08/04/2015 12:25 PM CDT Armando Corona MD LAB - PATHOLOGY/CYTO LOGY ORDERABLES [facility] [address] [place] [address] * ENDOSCOPY, COLON, DIAGNOSTIC (08/04/2015 [...] Procedure Code(s): ? --- Professional --- ? 51067, Colonoscopy, flexible; with removal of tumor(s), polyp(s), or ? other lesion(s) by snare technique ? --- Technical --- ? 26452, Colonoscopy, flexible; with removal of tumor(s), polyp(s), [...] abscess ? without bleeding CPT copyright 2015 [employer]. All rights reserved. The codes documented in this report are preliminary and upon dinkey engine firer review may be revised to meet current compliance requirements. Armando Corona 08/04/2015 9:38:09 AM This report has been signed electronically. Number of Addenda: 0 Note Initiated On: 08/04/2015 9:04 AM [facility] 08/04/2015 9:04 AM CDT Narrative Transcriptions Armando Corona MD - 08/04/2015 9:39 AM CDT Colonoscopy * fair prep *few diverticuli * no old or fresh blood * normal terminal ileum rec PRN hyoscyamine Capsule endoscopy today Armando Corona MD GI PROCEDURE ORDERAB LES [facility] * GROSS + MICRO EXAM (STL) (08/03/2015 7:54 AM CDT) Case Report Surgical Pathology Report ? Case: [id number] ? Authorizing Provider: ??Armando Corona MD ? Collected: ? 08/03/2015 07:54 AM ? Ordering Location: ? [facility] ?Received: ?08/03/2015 12:09 PM ? Pathologist: ? Kamilla Bustamante MD ? Specimen: ?Gastric Biopsy ? 08/04/2015 10:17 AM CDT [facility] Final Diagnosis 1. ??Gastric biopsy: -- ??Chronic gastritis -- ??H. pylori stain negative for bacterial organisms /zoey 08/04/2015 10:17 AM CDT [facility] Gross Description The specimen is received fixed in formalin in 1 container labeled with the patient's name, and gastric biopsy and contains three soft baird-yellow tissue fragments each measuring 0.3 cm in greatest dimension. The specimen is strained through a mesh bag and submitted in toto in cassette A1. JOVANNA/zoey 08/04/2015 10:17 AM CDT [facility] Microscopic Description Microscopic examination reveals gastric antrum and body mucosal fragments with patchy chronic gastritis. Metaplasia, dysplasia, malignancy and granulomas are not seen. H. pylori stain is negative for bacterial organisms. All of the stain(s), control slide(s) and test tissue slide(s) were judged as technically acceptable. /mark 08/04/2015 10:17 AM CDT [facility] Pathology/Cytolo gy GASTRIC BIOPSY SPECIMEN / Unknown 08/03/2015 7:54 AM CDT 08/03/2015 12:09 PM CDT Armando Corona MD LAB - PATHOLOGY/CYTO LOGY ORDERABLES Performing Organization Address City/State/[facility] Phone Number [facility] [address] [place] [address] * EGD (08/03/2015 7:24 AM [...] (Doctor), Roxi Bennett RN, Sona Dove, ? 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 40F pmh depression, arthritis, [...] Procedure Code(s): ? --- Professional --- ? 03202, Esophagogastroduod enoscopy, flexible, transoral; with biopsy, ? single or multiple ? --- Technical --- ? 42691, Esophagogastroduod enoscopy, flexible, transoral; with biopsy, ? single or multiple Diagnosis Code(s): ? --- Professional --- ? K29.70, Gastritis, unspecified, without bleeding ? R10.13, Epigastric pain ? R10.33, Periumbilical pain ? K92.1, Melena (includes Hematochezia) ? --- Technical --- ? K29.70, Gastritis, unspecified, without bleeding ? R10.13, Epigastric pain ? R10.33, Periumbilical pain ? K92.1, Melena (includes Hematochezia) CPT copyright 2015 [employer]. All rights reserved. The codes documented in this report are preliminary and upon dinkey engine firer review may be revised to meet current compliance requirements. Armando Corona, 08/03/2015 8:00:13 AM This report has been signed electronically. Number of Addenda: 0 Note Initiated On: 08/03/2015 7:24 AM [facility] 08/03/2015 7:24 AM CDT Narrative Transcriptions Armando Corona MD - 08/03/2015 8:00 AM CDT EGD - mild gastritis bx'd, other normal to proximal jejunum Rec Colonoscopy tomorrow Follow cbcs Armando Corona MD GI PROCEDURE ORDERAB LES [facility] * (ABNORMAL) BASIC METABOLIC PANEL (CALCIUM TOTAL) (08/03/2015 4:14 AM CDT) Glucose 83 74 - 106 mg/dL 08/03/2015 5:35 AM CDT [facility] Sodium 141 136 - 145 mmol/L 08/03/2015 5:35 AM CDT [facility] Potassium 4.0 3.5 - 5.1 mmol/L 08/03/2015 5:35 AM CDT [facility] Chloride 107 98 - 107 mmol/L 08/03/2015 5:35 AM CDT [facility] CO2 25 22 - 31 mmol/L 08/03/2015 5:35 AM CDT [facility] Calcium 8.3(L) 8.5 - 10.1 mg/dL 08/03/2015 5:35 AM CDT [facility] Anion Gap 9 5 - 20 mmol/L 08/03/2015 5:35 AM CDT [facility] BUN 6(L) 7 - 21 mg/dL 08/03/2015 5:35 AM CDT [facility] Creatinine 0.70 0.50 - 1.30 mg/dL 08/03/2015 5:35 AM CDT [facility] eGFR by MDRD >60 >60 mL/min/1.7 3m2 08/03/2015 5:35 AM CDT [facility] eGFR by MDRD >60 >60 mL/min/1.7 3m2 08/03/2015 5:35 AM CDT [facility] Blood BLOOD SPECIMEN / Unknown Lab Venipuncture / Unknown 08/03/2015 4:14 AM CDT 08/03/2015 4:52 AM CDT Akira Romero MD LAB - CHEMISTRY MORGAN YEE Performing Organization Address City/[facility]/ZIP Co de Phone Number [facility] [address] [place] [address] * CULTURE STOOL+ E COLI SHIGA-LIKE TOXIN (08/02/2015 4:51 PM CDT) Culture No growth Salmonella, Shigella, Campylobacter , E. coli 0157:h7 or Yersinia CARLOS EDUARDO 08/04/2015 6:[address] [facility] Culture Negative E. coli Shiga-like toxin (NM) CARLOS EDUARDO 08/04/2015 6:[address] [facility] Stool STOOL SPECIMEN / Unknown Collection / Unknown 08/02/2015 4:51 PM CDT 08/02/2015 4:56 PM CDT Chucho Hinton MD LAB - MICROBIOLOGY O RDERAPOPEYE Performing Organization Address [facility]/ZIP Co de Phone Number [facility] [address] [phone] * (ABNORMAL) LIPID PROFILE (08/02/2015 10:02 AM CDT) Cholesterol 184 <200 mg/dL 08/02/2015 10:49 AM CDT [facility] Triglycerides 156(H) <150 mg/dL 08/02/2015 10:49 AM CDT [facility] HDL Cholesterol 43 >40 mg/dL 08/02/2015 10:49 AM CDT [facility] LDL Calculated 110 <130 mg/dL 08/02/2015 10:49 AM CDT [facility] VLDL Calculated 31(H) <=30 mg/dL 08/02/2015 10:49 AM CDT [facility] Chol HDL Ratio 4.3 <4.5 08/02/2015 10:49 AM CDT [facility] LDL/HDL Ratio 2.6 <5.0 08/02/2015 10:49 AM CDT [facility] Blood BLOOD SPECIMEN / Unknown Lab Venipuncture / Unknown 08/02/2015 10:02 AM CDT 08/02/2015 10:13 AM CDT Chucho Hinton MD LAB - CHEMISTRY MORGAN YEE [facility] [address] [place] [address] * ALCOHOL ETHYL BLOOD (08/02/2015 10:02 AM CDT) Ethanol <10 <10 mg/dL 08/02/2015 10:49 AM CDT [facility] Ethanol Calculated <0.100 gm/dL 08/02/2015 10:49 AM CDT [facility] Blood BLOOD SPECIMEN / Unknown Lab Venipuncture / Unknown 08/02/2015 10:02 AM CDT 08/02/2015 10:13 AM CDT Narrative [facility] - 08/02/2015 10:49 AM CDT Non Legal Serum Alcohol Chucho Hinton MD LAB - CHEMISTRY MORGAN YEE Performing Organization Address [facility] Co de Phone Number [facility] [address] [place] [address] * HGB HCT PANEL (08/02/2015 10:02 AM CDT) Hemoglobin 12.3 12.0 - 15.6 gm/dL 08/02/2015 10:37 AM CDT [facility] Hematocrit 37.6 35.9 - 45.5 % 08/02/2015 10:37 AM CDT [facility] Blood BLOOD SPECIMEN / Unknown Lab Venipuncture / Unknown 08/02/2015 10:02 AM CDT 08/02/2015 10:13 AM CDT Akira Romero MD LAB - HEMATOLOGY KUSH LANGF[place] [facility] [address] [place] [address] * CT ABDOMEN AND PELVIS WITH IV [...] * CULTURE URINE (08/01/2015 7:35 PM CDT) Pathologist [facility] Culture 10,000-50,000 CFU/mL urogenital adelso CARLOS EDUARDO 08/03/2015 9:[address] [facility] Urine URINE SPECIMEN OBTAINED BY CLEAN CATCH PROCEDURE / Unknown Collection / Unknown 08/01/2015 7:35 PM CDT 08/01/2015 7:39 PM CDT Hari Niño MD LAB - MICROBIOLOGY O RDERABLES Performing Organization Address City/[facility]/ZIP Co de Phone Number [facility] [address] [place], [place] [phone] [place] [address] * (ABNORMAL) URINALYSIS MICROSCOPIC ONLY W/REFLEX CULTURE (08/01/2015 7:35 PM CDT) Pathologist [facility] Bacteria UA 1+(A) None Seen 08/01/2015 8:02 PM CDT [facility] Epithelial Cell UA 2-5 0-2, 2-5 # /hpf 08/01/2015 8:02 PM CDT [facility] Mucus UA Trace 08/01/2015 8:02 PM CDT [facility] Hyaline Casts 0-2 0 - 2 # /lpf 08/01/2015 8:02 PM CDT [facility] Calcium Oxalate Crystals 2+(A) None Seen 08/01/2015 8:02 PM CDT [facility] Urine URINE SPECIMEN OBTAINED BY CLEAN CATCH PROCEDURE / Unknown Collection / Unknown 08/01/2015 7:35 PM CDT 08/01/2015 7:39 PM CDT Hari Niño MD LAB - URINALYSIS ORD ERABLES Performing Organization Address City/[facility]/ZIP Co de Phone Number [facility] [address] [place] [address] * (ABNORMAL) URINALYSIS ROUTINE W/REFLEX TO CULTURE (08/01/2015 7:35 PM CDT) Pathologist [facility] Color UA Yellow Straw, Yellow, Dark Yellow 08/01/2015 7:45 PM CDT [facility] Clarity UA Clear 08/01/2015 7:45 PM CDT [facility] Specific [place] UA 1.019 1.005 - 1.030 08/01/2015 7:45 PM CDT [facility] pH UA 6.5 5.0 - 8.0 pH 08/01/2015 7:45 PM CDT [facility] Protein UA Negative Negative 08/01/2015 7:45 PM CDT [facility] Blood UA Negative Negative 08/01/2015 7:45 PM CDT [facility] Leukocyte UA 1+(A) Negative 08/01/2015 7:45 PM CDT [facility] Nitrite UA Negative Negative 08/01/2015 7:45 PM CDT [facility] Glucose UA Negative Negative 08/01/2015 7:45 PM CDT [facility] Ketone UA Negative Negative 08/01/2015 7:45 PM CDT [facility] Bilirubin UA Negative Negative 08/01/2015 7:45 PM CDT [facility] Urobilinogen UA 0.2 0.1 - 1.0 EU/dL 08/01/2015 7:45 PM CDT [facility] WBC UA Auto 2-5 0-2, 2-5 # /hpf 08/01/2015 7:45 PM CDT [facility] RBC UA Auto 2-5 0-2, 2-5 # /hpf 08/01/2015 7:45 PM CDT [facility] Reflex Status Culture to follow 08/01/2015 7:45 PM CDT [facility] Urine URINE SPECIMEN OBTAINED BY CLEAN CATCH PROCEDURE / Unknown Collection / Unknown 08/01/2015 7:35 PM CDT 08/01/2015 7:39 PM CDT Hari Niño MD LAB - URINALYSIS ORD ERABLES [facility] [address] [place] [address] * TYPE + SCREEN PANEL (08/01/2015 7:19 PM CDT) ABO A 08/01/2015 8:23 PM CDT [facility] Rh Type Positive 08/01/2015 8:23 PM CDT [facility] Comment:History check perfor med. Retype required. Antibody Screen Negative 08/01/2015 8:23 PM CDT [facility] Miscellaneous samples (specimen) BLOOD SPECIMEN / Unknown Venipuncture / Unknown 08/01/2015 7:19 PM CDT 08/01/2015 7:22 PM CDT Hari Niño MD LAB - BLOOD BANK ORD ERABLES Performing Organization Address [facility]/ZIP Co de Phone Number [facility] [address] * (ABNORMAL) LIPASE BLOOD (08/01/2015 6:50 PM CDT) Lipase 681(H) 10 - 220 U/L 08/01/2015 7:14 PM CDT [facility] Blood BLOOD SPECIMEN / Unknown Venipuncture / Unknown 08/01/2015 6:50 PM CDT 08/01/2015 6:54 PM CDT Hari Niño MD LAB - CHEMISTRY ORDE JOSELITO Performing Organization Address [facility] Co de Phone Number [facility] [address] [place] [id number] * (ABNORMAL) COMPREHENSIVE METABOLIC PANEL (08/01/2015 6:50 PM CDT) Glucose 88 74 - 106 mg/dL 08/01/2015 7:14 PM CDT [facility] Sodium 137 136 - 145 mmol/L 08/01/2015 7:14 PM CDT [facility] Potassium 4.1 3.5 - 5.1 mmol/L 08/01/2015 7:14 PM CDT [facility] Chloride 106 98 - 107 mmol/L 08/01/2015 7:14 PM CDT [facility] CO2 21(L) 22 - 31 mmol/L 08/01/2015 7:14 PM CDT [facility] Calcium 9.3 8.5 - 10.1 mg/dL 08/01/2015 7:14 PM CDT [facility] Anion Gap 10 5 - 20 mmol/L 08/01/2015 7:14 PM CDT [facility] [facility] BUN 13 7 - 21 mg/dL 08/01/2015 7:14 PM CDT [facility] Creatinine 0.90 0.50 - 1.30 mg/dL 08/01/2015 7:14 PM CDT [facility] Alkaline Phosphatase 77 38 - 126 U/L 08/01/2015 7:14 PM CDT [facility] ALT 34 12 - 78 U/L 08/01/2015 7:14 PM CDT [facility] AST 13 5 - 40 U/L 08/01/2015 7:14 PM CDT [facility] Protein Total 7.9 6.4 - 8.2 gm/dL 08/01/2015 7:14 PM CDT [facility] Albumin 4.3 3.4 - 5.0 gm/dL 08/01/2015 7:14 PM CDT [facility] Bilirubin Total 0.2 0.2 - 1.0 mg/dL 08/01/2015 7:14 PM CDT [facility] eGFR by MDRD >60 >60 mL/min/1.7 3m2 08/01/2015 7:14 PM CDT [facility] eGFR by MDRD >60 >60 mL/min/1.7 3m2 08/01/2015 7:14 PM CDT [facility] Blood BLOOD SPECIMEN / Unknown Venipuncture / Unknown 08/01/2015 6:50 PM CDT 08/01/2015 6:54 PM CDT Hari Niño MD LAB [facility] Organization Address City/State/[facility] Co de Phone Number [facility] [address], [place] [phone] * (ABNORMAL) CBC W AUTO DIFFERENTIAL (08/01/2015 6:50 PM CDT) [facility] WBC 9.3 4.4 - 10.7 x10E9/L 08/01/2015 6:57 PM CDT [facility] WBC Corrected x10E9/L 08/01/2015 6:57 PM CDT [facility] RBC 5.35(H) 3.80 - 5.20 x10E12/L 08/01/2015 6:57 PM CDT [facility] Hemoglobin 15.1 12.0 - 15.6 gm/dL 08/01/2015 6:57 PM CDT [facility] Hematocrit 44.9 35.9 - 45.5 % 08/01/2015 6:57 PM CDT [facility] MCV 83.9 80.7 - 98.3 fl 08/01/2015 6:57 PM CDT [facility] MCH 28.2 26.7 - 34.0 pg 08/01/2015 6:57 PM CDT [facility] MCHC 33.6 30.8 - 35.9 gm/dL 08/01/2015 6:57 PM T [facility] Platelet Count 339 153 - 416 x10E9/L 08/01/2015 6:57 PM T [facility] RDW-CV 15.0(H) 12.1 - 14.9 % 08/01/2015 6:57 PM [facility] MPV 8.3(L) 9.4 - 12.9 fl 08/01/2015 6:57 PM [facility] Neutrophils % 54.0 44.0 - 73.0 % 08/01/2015 6:57 PM [facility] Lymphocytes % 36.4 20.0 - 43.0 % 08/01/2015 6:57 PM CDT [facility] Monocytes % 7.1 5.0 - 13.0 % 08/01/2015 6:57 PM CDT [facility] Eosinophils % 1.0 0.0 - 6.0 % 08/01/2015 6:57 PM T [facility] Basophils % 1.0 0.0 - 2.0 % 08/01/2015 6:57 PM [facility] Immature Granulocytes 0.5 0 - 1 % 08/01/2015 6:57 PM T [facility] Neutrophil Absolute 5.03 2.01 - 7.14 x10E9/L 08/01/2015 6:57 PM CDT [facility] Lymphocytes Absolute 3.39 1.07 - 3.94 x10E9/L 08/01/2015 6:57 PM CDT [facility] Monocytes Absolute 0.66 0.26 - 1.07 x10E9/L 08/01/2015 6:57 PM CDT [facility] Eosinophils Absolute 0.09 0 - 0.47 x10E9/L 08/01/2015 6:57 PM T [facility] Basophils Absolute 0.09(H) 0 - 0.08 x10E9/L 08/01/2015 6:57 PM CDT [facility] Immature Granulocytes Absolute 0.05 0.00 - 0.06 x10E9/L 08/01/2015 6:57 PM CDT [facility] nRBC Auto 0 /100 WBC 08/01/2015 6:57 PM CDT [facility] Blood BLOOD SPECIMEN / Unknown Venipuncture / Unknown 08/01/2015 6:50 PM CDT 08/01/2015 6:54 PM CDT Hari Niño MD LAB - HEMATOLOGY ORD ERABLES [facility] [address], [place] [phone] documented in this encounter Visit Diagnoses Diagnosis [...] Given 08/01/2015 7:21 PM CDT 1,000 mL fletwnovof-jetkrfetgtvlo-omx feine (FIORICET) 50-325-40 MG tablet 1 Tab [...] (Anesthesia Volume Adjustment - Provider: Hari Guillory APRN-DRYING OVEN TENDER)1114 ($ New Bag/Syringe - Provider: Janina Espinoza RN)2054 ($ New Bag/Syringe - Provider: Ghazala Deleon APRN-AUTOMATION MECHANIC) 0651 ($ New Bag/Syringe - Provider: Gahzala Deleon HISTORIOGRAPHY PROFESSOR-AUTOMATION MECHANIC) 0.9% NaCl infusion (CANCELED) at 20 mL/hr, Intravenous, CONTINUOUS, Starting on Sat08/03/15 at 0730, Until Sat08/03/15 at 0846, Pre-procedure (GI) 0700 ($ New Bag/Syringe - Provider: Peg Lorenzana RN)0754 (Anesthesia Volume Adjustment - Provider: Brionna Fournier HISTORIOGRAPHY PROFESSOR-DRYING OVEN TENDER) PRN Medication Order 08/03/2015 08/04/2015 08/05/2015 ALPRAZolam [...] Deleon APRN-NOEMY) 0125 ($ Given - Provider: Ghzaala Deleon APRN-NOEMY)0521 ($ Given - Provider: Ghazala Deleon APRN-AUTOMATION MECHANIC) HYDROmorphone (DILAUDID) injection 1 mg (CANCELED) 1 [...] 0125 ($ Given - Provider: Ghazala Deleon APRN-AUTOMATION MECHANIC) ondansetron (ZOFRAN) injection 4 mg (CANCELED) 4 [...] Diana Hickey RN)1911 ($ Given - Provider: Daina Hickey RN) 0641 ($ Given - Provider: Maria C Crocker RN)1419 ($ Given - Provider: Janina Espinoza RN)2054 ($ Given - Provider: Ghazala Deleon APRN-NOEMY) 0303 ($ Given - Provider: Sofia Marks RN)0651 ($ Given - Provider: Ghazala Dleeon APRN-NOEMY)1020 ($ Given - Provider: Sindi Packer RN - Comment: loss if iv unable to give ivp pain med.) documented in this encounter Care Teams Regulatory Coordinator Relationship Specialty Start Date End Date Jonathan Hartman, RN [employer] Driver 07/14/15 documented as of this encounter
--- OUTSIDE RECORDS SUMMARY | 2024-04-29 19:20 | XMS_ITS | Encounter Summary ---
Author Organization [facility] Address [address] [facility] [place] [address] Care Team Providers Care Paper Cone Grader Name Role Phone Jonathan Hartman RN Unavailable [phone] Reason for Visit * Reason Comments Pain Abdominal AP for 4 days/seen a jacqueline Grider and had CT scan as an outpatient/had elevated lipase and amylase/poor oral intake/hx diverticulitis * Auth/Cert Specialty Diagnoses / Procedures Referred By Kaylynn t Referred To Contact Diagnoses Intractable abdominal pain Referral ID Status Reason Start Date Expiration Date Visits Re quested Visits Authorized [id number] 1 1 Encounter Details Date Type Department Care Team (Latest Contact Info) Description 07/13/2015 7:52 PM CDT - 07/16/2015 2:54 PM CDT Hospital Encounter HC 3E MED/ONC [address] [place] [address] Bri Ugarte MD [address] [place] [address] Kelsie Warren MD [address] [facility] [address] [place] [address] Chucho Hinton MD [address] [facility] [address] [place] [address] Internal Medicine Discharge Disposition: Home or Self Care Social History Tobacco Use Types Packs/Day Years Used Date Smoking Tobacco: Former Smokeless Tobacco: Current Tobacco Cessation:Ready to Q uit: No; Counseling Given: Yes Alcohol Use Standard Drinks/Week Comments No 0 (1 standard drink = 0.6 oz pur e alcohol) Sex and Gender Information Value Date Recorded Sex Assigned at Not on file Gender Identity Female 01/29/2017 1:09 PM CDT Sexual Orientation Not on file documented as of this encounter Last Filed Vital Signs Vital Sign Reading Time Taken Comments Blood Pressure 138/95 07/16/2015 12:21 PM CDT Pulse 62 07/16/2015 12:21 PM CDT Temperature 36.9 ??C (98.5 ??F) 07/16/2015 12:21 PM C DT Respiratory Rate 20 07/16/2015 12:21 PM CDT Oxygen Saturation 99% 07/16/2015 12:21 PM CDT Inhaled Oxygen Concentration - - Weight 80.7 kg (178 lb) 07/13/2015 4:50 PM CDT Height 167.6 cm (5' 6 ) 07/13/2015 10:37 PM CDT Body Mass Index 28.73 07/13/2015 4:50 PM CDT documented in this encounter Functional [...] No 07/13/2015 documented as of this encounter Discharge Summaries * Chucho Hinton MD - 07/16/2015 2:44 PM CDT . Physician Discharge Summary Patient Name: Madalyn Walton Date of : 1975 Admit date: 07/13/2015 Discharge date: 07/16/2015 Admitting Physician: Kelsie Warren MD Attending Physician: Chucho Hinton MD Discharge Physician: Admission Diagnosis: Acute diverticulitis Past Medical History Past Medical History Diagnosis Date ??? Diverticulitis ??? Migraine Resolved Diagnoses Acute diverticulitis Acute gastritis Discharge Diagnoses Acute diverticulitis Acute gastritis Diagnostic Studies See hospital course Treatments See hospital course Procedures See hospital course Consults GI Hospital Course 40y/o F with h/o depression , seronegative arthritis, diverticulitis who presented to Er c/o LLQ pain X 4 days.admitted for acute diverticulitis and gastritis . Initially placed on clears, received PPI, cipro/flagyl empirically.Evalautred by GI Dr. Corona who performed EGD which showed Non- bleeding gastric ulcers. GI sx improved and diet advanced as tolerated. She remained stable and d/c home to complete 10 day course of abx and f/u with Dr. corona for colonoscopy as OP. Physical exam, see progress note. Condition at discharge: stable Disposition: Home Code Status At Discharge Full Code Patient Instructions Discharge Medication List As of 07/16/2015 1:31 PM START taking these medications Instructions Authorizing Provider ciprofloxacin 500 MG tablet Commonly known as: CIPRO Take 1 Tab by mouth every 12 hours for 8 days Chucho Hinton loperamide 2 MG capsule Commonly known as: IMODIUM Take 1 Cap by mouth 4 times daily as needed for Diarrhea Chucho Hinton metroNIDAZOLE 500 MG tablet Commonly known as: FLAGYL Take 1 Tab by mouth every 8 hours for 8 days Chucho Hinton oxyCODONE-acetaminophen 5-325 MG tablet Commonly known as: [...] - before meals & nightly Chucho Hinton CONTINUE taking these medications Instructions Authorizing Provider DULoxetine 60 MG capsule Commonly known as: CYMBALTA Take 60 mg by mouth once daily Other 6 mg by Injection route as needed (Imitrex 6m g IM - Inject at onset of migraine, then as directed PRN) Discharge Procedure Orders Why you were hospitalized Order Specific Question Answer Comments Your discharge diagnosis is Gastric ulcer [[id number]] Follow up with Primary Care Provider (PCP) Our records show your Primary Care Provider (PCP) is Feliciano Dash MD. Order Specific Question Answer Comments Follow Up Instructions: 1 week No special diet needed Activity as tolerated Rest today, and increase your activity level tomorrow as tolerated. Follow up with provider Order Specific Question Answer Comments Follow Up Instructions: 1 month Discharge time: 33 minutes. CC: Feliciano Dash MD documented in this encounter Medications at Time of Discharge Medication Sig Dispensed Refills Start Date End Date DULoxetine (CYMBALTA) 60 MG capsule Take 60 mg by mouth once daily Takes with 30 mg (total daily dose: 90 mg) ciprofloxacin (CIPRO) 500 MG tablet Take 1 Tab by mouth every 12 hours for 8 days 16 Tab 0 07/16/2015 07/24/2015 loperamide (IMODIUM) 2 MG capsule Take 1 Cap by mouth 4 times daily as needed for Diarrhea 30 Cap 0 07/16/2015 01/29/2017 metroNIDAZOLE (FLAGYL) 500 MG tablet Take 1 Tab by mouth every 8 hours for 8 days 24 Tab 0 07/16/2015 07/24/2015 Other 6 mg by Injection route as needed (Imitrex 6m g IM - Inject at onset of migraine, then as directed PRN) 11/18/2015 oxyCODONE-acetaminophen (PERCOCET) 5-325 MG tablet Take 1 Tab by mouth every 4 hours as needed 30 Tab 0 07/16/2015 08/05/2015 pantoprazole EC (PROTONIX) 40 MG tablet Take 1 Tab by mouth 2 times daily,before breakfast and supper 60 Tab 1 07/16/2015 09/29/2015 sucralfate (CARAFATE) 1 GM/10ML suspension Take 10 mL by mouth 4 times daily - before meals & nightly 420 mL 1 07/16/2015 04/25/2016 documented as of this encounter Progress Notes * Devora Tinsley - 07/22/2015 9:07 AM CDTQuick Note: Pt aware of test results. * Armando Corona MD - 07/21/2015 5:39 PM CDTQuick Note: unremarkble biopsies. Has EGD/Colon scheduled for August * Laurel Flores RN - 07/16/2015 2:48 PM CDT Shift Summary: Pt is A&Ox4 and complains of frequent abdominal pain especially after meals. Pt's appetite is fair and is tolerating medicines and fluids well. Pt rested in bed with boyfriend in the room. Discharge instructions were dicussed with patient and she indicated understanding.Prescriptions were signed and given to patient. IV was taken out. Pt requested to walk out of the hospital with boyfriend at discharge. Pt states at no belongings were placed in security. Laurel Flores RN 07/16/2015 2:52 PM * Chucho Hinton MD - 07/16/2015 2:43 PM CDT IPC Progress Note Admit Date: 07/13/2015 7:52 PM Hospital Day: 3 Clinical Course 40y/o F with h/o depression , seronegative arthritis, diverticulitis who presented to Er c/o LLQ pain X 4 days.admitted for acute diverticulitis and gastritis New Symptoms Patient has no new symptoms Data Vitals: 07/16/15 0051 07/16/15 0517 07/16/15 0830 07/16/15 1221 BP: 106/68 116/72 126/77 138/95 Pulse: 64 64 79 62 Temp: 98 ??F 97.7 ??F 98.6 ??F 98.5 ??F Resp: 20 Weight: SpO2: 100% 98% 99% 99% Intake/Output Summary (Last 24 hours) at 07/16/15 1443 Last data filed at 07/16/15 0252 Gross per 24 hour Intake 4645 ml Output 0 ml Net 4645 ml My review of labs, imaging, notes and other tests shows no new significant findings. Recent Labs Component Name 07/15/15 0551 07/13/15 1713 WBC 5.5 11.3* HGB 12.5 16.2* HCT 38.2 49.0* PLTCOUNT 243 375 Recent Labs Component Name 07/13/15 1713 SODIUM 136 POTASSIUM 3.8 CHLORIDE 107 CO2 20* BUN 23* CREATININE 0.94 GLUCOSE 95 CALCIUM 9.7 MEDICATIONS FOR CURRENT ENCOUNTER: ?? SCHEDULED MEDICATIONS: ?? ciprofloxacin (CIPRO) tablet 500 mg, Oral, q12h ?? DULoxetine (CYMBALTA) capsule 60 mg, Oral, QDAY ?? heparin injection 5,000 Units, Subcutaneous, q8h ?? metroNIDAZOLE (FLAGYL) tablet 500 mg, Oral, q8h ?? pantoprazole EC (PROTONIX) tablet 40 mg, Oral, BID AC ?? sucralfate (CARAFATE) suspension 1 g, Oral, 4X/day - AC & HS ?? CONTINUOUS MEDICATIONS: ?? 0.9% NaCl infusion, Intravenous, Continuous ?? PRN MEDICATIONS: ?? 0.9% NaCl injection 1-10 mL, Intracatheter, PRN ?? acetaminophen (TYLENOL) tablet 650 mg, Oral, q4h PRN ?? HYDROmorphone (DILAUDID) injection 0.2 mg, Intravenous, q4h PRN ?? ondansetron (ZOFRAN) injection 4 mg, Intravenous, q6h PRN ?? oxyCODONE-acetaminophen (PERCOCET) 5-325 MG tablet 1 Tab, Oral, q4h PRN ?? SUMAtriptan (IMITREX) injection 6 mg, Subcutaneous, QDAY PRN Exam General appearance: alert, cooperative, no distress Heart: regular rhythm, normal S1 and S2, without murmurs, rubs or gallops Lungs: breath sounds normal and symmetric; no rales or wheezes Abdomen: soft without mass, non-tender, with normal bowel sounds Extremities: no clubbing, cyanosis or edema Assessment and Plan Acute gastritis; resolving -- GI rec's appreciated; Had EGD which showed Non-bleeding gastric ulcers -- continue PPI bid, sucralfate , avoid NSAID's indefinitely Suspected acute diverticulitis ?? -- continue cipro/flagyl X 10 days empirically, continue , analgesia and antiemetic prn ?? -- f/u stool cx, IBD biomarker's given family h/o crohns dx , colonoscopy as OP Acute cystitis R/o ?? -- Rx not indicated as urine cx -ve Depression -- continue Sero -ve arthritis ?? -- f/u with rheumatology as OP DVT prophylaxis ?? -- heparin Sc Dispo; home D/w RN ?? Chucho Hinton MD ? * Alyse Schaefer - 07/16/2015 7:01 AM CDT Shift Summary: Pt. A&Ox4 vital signs WNL throughout shift. Pt. Continues to have constant pain in right mid abdomen. Pt. Given pain meds per order with mild relief. IV fluids infusing per order, pt. Tolerating IV antibiotics well. Potential d/c today. Up ad melissa, call light within reach. Aleksandar 07/16/2015 7:01 AM * Alyse Schaefer - 07/16/2015 1:06 AM CDT Problem: Nausea/Vomiting Goal: Patients functional goal is met Outcome: Ongoing Pt. Has complains of mild nausea intermittently, no vomiting this shift. * Laurel Flores RN - 07/15/2015 6:52 PM CDT Shift Summary: Pt is A&Ox4 and states having constant pain in her lower right abdomen. Controlled by dilaudid and percocet. She also complains of frequent headaches. Imitrex was ordered. Pt had EGD today. Report from endo stated that non bleeding gastric ulcers were found. Pt was switched to regular diet and has some discomfort with the new diet.Tolerating IV abx and fluids well. Pt took a shower today and ambulated the hallways. Call light in reach. Laurel Flores RN 07/15/2015 8:01 PM * Laurel Flores RN - 07/15/2015 5:43 PM CDT Problem: Nausea/Vomiting Goal: Patients functional goal is met Outcome: Ongoing Patient states having some nausea with no vomiting. Patient states nausea when given pain medicine. Problem: Mobility Goal: STG - Patient will ambulate 150ft with straight cane with mod I Outcome: Ongoing Patient was able to ambulate in [place] and room. * Chucho Hinton MD - 07/15/2015 3:30 PM CDT IPC Progress Note Admit Date: 07/13/2015 7:52 PM Hospital Day: 2 Clinical Course 40y/o F with h/o depression , seronegative arthritis, diverticulitis who presented to Er c/o LLQ pain X 4 days.admitted for acute diverticulitis and gastritis New Symptoms Patient has no new symptoms Data Vitals: 07/15/15 1440 07/15/15 1444 07/15/15 1449 07/15/15 1515 BP: 107/60 113/61 118/64 125/85 Pulse: 67 70 68 78 Temp: 98.1 ??F Resp: 15 18 15 20 Weight: SpO2: 96% 97% 96% 100% Intake/Output Summary (Last 24 hours) at 07/15/15 1530 Last data filed at 07/15/15 1453 Gross per 24 hour Intake 418 ml Output 0 ml Net 418 ml My review of labs, imaging, notes and other tests shows no new significant findings. Recent Labs Component Name 07/15/15 0551 07/13/15 1713 WBC 5.5 11.3* HGB 12.5 16.2* HCT 38.2 49.0* PLTCOUNT 243 375 Recent Labs Component Name 07/13/15 1713 SODIUM 136 POTASSIUM 3.8 CHLORIDE 107 CO2 20* BUN 23* CREATININE 0.94 GLUCOSE 95 CALCIUM 9.7 MEDICATIONS FOR CURRENT ENCOUNTER: ?? SCHEDULED MEDICATIONS: ?? ciprofloxacin (CIPRO) IVPB 400 mg, Intravenous, q12h ?? DULoxetine (CYMBALTA) capsule 60 mg, Oral, QDAY ?? heparin injection 5,000 Units, Subcutaneous, q8h ?? metronidazole in saline (FLAGYL) IVPB 500 mg, Intravenous, q8h ?? pantoprazole EC (PROTONIX) tablet 40 mg, Oral, BID AC ?? sucralfate (CARAFATE) suspension 1 g, Oral, 4X/day - AC & HS ?? CONTINUOUS MEDICATIONS: ?? 0.9% NaCl infusion, Intravenous, Continuous ?? PRN MEDICATIONS: ?? 0.9% NaCl injection 1-10 mL, Intracatheter, PRN ?? acetaminophen (TYLENOL) tablet 650 mg, Oral, q4h PRN ?? HYDROmorphone (DILAUDID) injection 0.2 mg, Intravenous, q4h PRN ?? ondansetron (ZOFRAN) injection 4 mg, Intravenous, q6h PRN ?? oxyCODONE-acetaminophen (PERCOCET) 5-325 MG tablet 1 Tab, Oral, q4h PRN ?? SUMAtriptan (IMITREX) injection 6 mg, Subcutaneous, QDAY PRN Exam General: AXO3 Skin: Normal color and temp for age and race. No lesion, rash, or exudate. HEENT: Normocephalic, atraum. EOMI. PERRLA. Mucouse membranes are pink and moist. Neck is supple nontender without lymphadenopathy. ?? Heart: RRR. S1 S2 noted. No murmurs, rubs or gallops. Lungs: CTA. No wheezes, rales, or rhonchi. Abdomen: BS present and normactive x 4 quadrants. Tenderness in the LLQ w/o rebound or guarding. Nopalpable mass or organomegaly. Musculoskeletal: 5/5 strength x 4 extremities. ?? Vascular: No cyanosis, clubbing or edema. Neuro: Alert and oriented x 3. CN exam II-XII intact without focal deficit. Strength symmetric without focal weakness. Assessment and Plan Acute gastritis -- GI rec's appreciated; Had EGD which showed Non-bleeding gastric ulcers -- continue PPI bid, sucralfate , avoid NSAID's indefinitely Suspected acute diverticulitis ?? -- continue cipro/flagyl empirically, continue IVF , analgesia and antiemetic prn ?? -- f/u stool cx, IBD biomarker's given family h/o crohns dx , colonoscopy as OP Acute cystitis R/o -- Rx not indicated as urine cx -ve Depression -- continue Sero -ve arthritis ?? -- f/u with rheumatology as OP DVT prophylaxis ?? -- heparin Sc Dispo; home tomorrow D/w RN ?? Chucho Hinton MD * Armando Corona MD - 07/15/2015 2:33 PM CDT EGD : Nl esophagus/duodenum Stomach: multiple linear, superficial gastric ulcers Rec - Await pathology results. - PPI to BID, correct timing advised - Carafate - Avoid NSAIDs advised - EGD along with colonscopy in 8 wks to evaluate healing of gastric ulcers , and for diverticulitis - ok to go home if tolerates diet * Devora Paul, PT - 07/15/2015 2:00 PM CDT Attempted to see patient for physical therapy. Unable to complete visit due to pt currently off [facility] for procedure/testing. Will attempt to see patient at a later date/time as PT schedule allows. Devora Paul, PT, DPT Ascom [phone] * Elvia Remy RN - 07/15/2015 8:13 AM CDT Shift summary: A&O X4. VSS. Up ad melissa. Diarrhea through night. On contact plus to rule out c-diff. Tolerating IV ABX. IV and PO prn pain med given through night for abd pain. Pt states that she feels better tonight than she did the night before last. Consent signed for procedure today. NPO since midnight. Call light in reach. Elvia Remy, ANTHONY 07/15/2015 8:14 AM * Briana Sandhu RN - 07/14/2015 4:41 PM CDT Shift Summary: Pt A&O x4. Up ad melissa. VSS. Medicated for pain throughout the shift. C/o diarrhea. Cdif sent and Contact precautions implemented. IVantbx infusing per JUN. Call light within reach. Will continue to monitor. Briana Sandhu RN 07/14/2015 4:47 PM * Devora Paul, PT - 07/14/2015 3:39 PM CDT Chart reviewed and Physical Therapy Evaluation completed. RN gave permission to work with patient. Pt is a 40 year old female with history of depression, seronegative arthritis, and diverticulitis who is admitted with abdominal pain. PT evaluation requested for DME training. PLOF: Residence: Apartment Lives with:: Significant Other;Son Steps to Enter: No Home Structure: Two Story Equipment At Home: None Mobility: Ambulate-In Community;Independent;Driving Have Help at Home?: No help at home now Subjective: Pt agreeable to working with PT. Reports having arthritis in her hips, knees, low back,wrists, and SI joints. She reports she has seen a otm consultant and was recently diagnosed with seronegative arthritis. They plan to start treatment after her current issues are resolved. She has trouble ambulating, especially after sitting for long periods of time and would like a cane. Evaluation: Mobility: Supine to Sit: Complete Supai Sit to Supine: Complete Supai Sit to Stand: Complete Supai Stand to Sit: Complete Supai Distance Ambulated: 50 FEET Ambulation: Assistive Device: Cane-Straight;Walker-2 Wheeled Ambulation: Level of Assistance: Supervision, Set-Up, Cues Ambulation: Gait Deviations: Antalgic;Ashlie - Decreased;Step Length - Decreased;Weight Shift - Decreased Strength: RLE Assessment: Within Defined Limits LLE Assessment: Within Defined Limits Activity Tolerance: Requires rest breaks Cognition: Attention/Concentration - Normal for Age PT eval complete. See Filed Flowsheet under Summary for details. Problem list: decreased strength, decreased ROM, decreased endurance, decreased balance, decreased coordination Functional limitation: Decreased independence with transfers and gait; decreased safety with functional mobility. Rationale for therapy: Patient will benefit from PT to address the above issues. Patient will be seen for: exercise, transfers, gait training, balance, and endurance. Patient/family stated goal: Use a cane Refer to Plan of Care for PT goals. Recommendations:Pt would benefit from a cane for pain management and safety during ambulation. Willfollow for 1-2 more visit for additional practice with cane. Anticipate safe discharge home when she is medically ready. All lines, monitors, IV's and equipment in place and intact pre and post visit. Call light in reachupon PT departure. G-codes have been applied: Functional Assessment Tool Used: [employer] AM-PAC Basic Mobility Inpatient Short Form Score: 22 Functional Limitation: Mobility: Walking and moving around Mobility: Walking and Moving Around Current Status (G8978): CI-At least 1 % but less than 20 % impaired, limited or restricted Mobility: Walking and Moving Around Goal Status (G8979): CH-0 % impaired, limited or restricted Devora Paul, PT, DPT ascom [phone] If this is the last physical therapy visit, this serves as the discharge summary. * Jonathan Hartman RN - 07/14/2015 12:35 PM CDT I have met with the pt at the bedside. Welcome letter and BC given, CM role explained. Pt verbalized understanding. Chart reviewed 40 y.o. female with PMHx of diverticulitis and migraines presenting to the ED with a chief complaint of sharp Abdominal Pain onset 4 days with a severity rating of 9/10. Pt states having nausea. Pt states having diarrhea onset 3 days. Pt states LNMP 2.5 weeks ago. Pt states having stomach pain after taking ibuprofen, and therefore has stopped taking it for pain.?? Pt states having a CAT scan yesterday, but has not received any results. Negative symptoms include vomiting, blood in stool and urine, dysuria. Case Management Initial Assessment Case Management screen completed, welcome letter given. 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 requires but does not have.: Cane-Straight PCP: Feliciano Dash MD If no PCP, action taken: Physician Followup Appointment(s) Made: No Reason why no appointment was made with physician: Patient/family declined Pharmacy benefit: Yes SW Referral: no LACE SCORE: If there is no score indicated, this patient has yet to be assessed for Readmission Risk. . If the patient has been assessed, the score is:Readmit Risk Score Total: 6 If patient requires HHC at discharge, he/she requests: Not home bound Transportation at discharge: Family Transportation to MD appointments: self Comments: NS 100 IV morphine prn BUN: 23 Ucx: pending Lipase: 411 PT order per pt request for possible need for cane for home use CM will continue to follow the pt to assist with dc needs and arrangements. If this is the last catalytic case operatorarts manager this note serves as discharge summary. Jonathan Hartman RN CM [phone] (this number is not to be given to pt's or families) * Elvia Remy RN - 07/14/2015 2:30 AM CDT Shift summary: A&O X4. VSS. Morphine given for pain in abd. Pt states the dilaudid worked for her better in the ED. notified and does not want to change pain med ordered until pt is seen by physician. Pt requested zofran and given. Tolerating IVF. Diarrhea upon admission. Waiting urine specimen. Pt was not seen this shift by physician. Call light in reach. Elvia Remy RN 07/14/2015 6:51 AM * Elvia Remy RN - 07/14/2015 1:23 AM CDT Problem: Nausea/Vomiting Goal: Patients functional goal is met Outcome: Ongoing Pt proceeds to be free of NV this shift. Will be evaluated by Dr before pain meds can be readjustedsince pt states morphine does not help pain. Dr notified. Call light in reach. Elvia Remy RN 07/14/2015 1:23 AM * Elvia Remy RN - 07/13/2015 11:26 PM CDT Problem: Nausea/Vomiting Goal: Patients functional goal is met Outcome: Ongoing No NV at this time. Received zofran in ED. Morphine admin. No NV with morphine. Call light in reach. Will continue to monitor. Elvia Remy RN 07/13/2015 11:26 PM * Zully Alfaro RN - 07/13/2015 4:55 PM CDT EDREFERRAL Diagnosis: C/O upper abdominal pain and nuasea. Patie has an elevated amylase and lipase PCP Name: Feliciano Molina in [place], [place] PCP to be contacted?: Emergency Dept to notify Referring physician does not request call back. If patient admitted, admit to PCP. Zully Alfaro RN [facility] Access LIne [phone] documented in this encounter H&P Notes * Armando Corona MD - 07/15/2015 2:21 PM CDT PRE-PROCEDURE HISTORY & PHYSICAL NOTE (Presedation assessment per Anesthesia Team) 07/15/2015 2:21 PM Patient: Madalyn Walton, date of 1975 Procedure(s) planned: egd Indication(s): epigastric pain, post prandial at times History: Patient Active Problem List Diagnosis ??? Acute cystitis without hematuria Past Medical History Diagnosis Date ??? Diverticulitis ??? Migraine Past Surgical History Procedure Laterality Date ??? Acl reconstruction Bilateral ??? Endoscopy, colon, diagnostic ??? Tonsillectomy No Known Allergies Current Facility-Administered Medications Medication Dose Route Frequency Provider Last Rate Last Dose ??? SUMAtriptan (IMITREX) injection 6 mg 6 mg Subcutaneous QDAY PRN Chucho Hinton MD ??? 0.9% NaCl infusion Intravenous Continuous Armando Corona MD ??? oxyCODONE-acetaminophen (PERCOCET) 5-325 MG tablet 1 Tab 1 Tab Oral q4h PRN Chucho Hinton MD 1 Tab at 07/15/15 1107 ??? HYDROmorphone (DILAUDID) injection 0.2 mg 0.2 mg Intravenous q4h PRN Chucho Hinton MD 0.2 mg at 07/15/15 0820 ??? DULoxetine (CYMBALTA) capsule 60 mg 60 mg Oral QDAY Chucho Hinton MD 60 mg at 07/15/15 0820 ??? heparin injection 5,000 Units 5,000 Units Subcutaneous q8h Chucho Hinton MD 5,000 Units at 07/15/15 0415 ??? metronidazole in saline (FLAGYL) IVPB 500 mg 500 mg Intravenous q8h Chucho Hinton MD 500 mgat 07/15/15 1235 ??? ciprofloxacin (CIPRO) IVPB 400 mg 400 mg Intravenous q12h Chucho Hinton MD 400 mg at 07/15/15 0414 ??? pantoprazole (PROTONIX) injection 40 mg 40 mg Intravenous QDAY Chucho Hinton MD 40 mg at 07/15/15 0819 ??? 0.9% NaCl injection 1-10 mL 1-10 mL Intracatheter PRN Bri Ugarte MD ??? ondansetron (ZOFRAN) injection 4 mg 4 mg Intravenous q6h PRN Bri Ugarte MD 4 mg at 07/15/15 1107 ??? 0.9% NaCl infusion Intravenous Continuous Bri Ugarte MD 100 mL/hr at 07/14/15 2149 ??? acetaminophen (TYLENOL) tablet 650 mg 650 mg Oral q4h PRN Bri Ugarte MD Review of systems: Chest pain: No. Shortness of breath: No. Review of systems otherwise negative. Physical Exam: BP 128/78 mmHg Pulse 69 Temp(Src) 98.1 ??F Resp 20 Wt 80.74 kg (178 lb) BMI 28.74 kg/m2 GENERAL: The patient is alert, oriented and in no apparent distress. HEENT: Neck supple, posterior pharynx is clear. LUNGS: Lungs are clear to auscultation. CVS: Heart sounds are normal, no murmurs. ABDOMEN: Soft, epigastric tenderness, masses or organomegaly. EXTREMITIES: Normal. NEURO: Non-focal. Pain assessment: epigastric Sedation Plan: Monitored Anesthesia Care (MAC) by [...] Corona MD * Chucho Hinton MD - 07/14/2015 10:06 AM CDT [facility] Madalyn Walton 1975 Data Unavailable 07/13/2015 Feliciano Dash MD Chief Complaint Patient presents with ??? Pain Abdominal AP for 4 days/seen at [facility] and had CT scan as an outpatient/had elevated lipase and amylase/poor oral intake/hx diverticulitis HPI 40y/o F with h/o depression , seronegative arthritis, diverticulitis who presented to Er c/o LLQ pain X 4 days. Per patient, she was in her usual state of health until 4 days prior to developed LLQ pain. Pain was said to be 8-10/10 in intensity, sharp, non radiating with no aggravating or relieving. There was associated diarrhea and nausea. Denies vomiting, abdominal distension, sick contacts, fever or any other Sx. Had a CT scan done 2 days ago which showed acute diverticulitis and she was admitted for further management. Past Medical History Diagnosis Date ??? Diverticulitis ??? Migraine Past Surgical History Procedure Laterality Date ??? Acl reconstruction Bilateral ??? Endoscopy, colon, diagnostic ??? Tonsillectomy No family history on file. History Social [...] ??? Not on file Social History Narrative ??? No narrative on file Review of patient's allergies indicates no known allergies. Prescriptions prior to admission Medication Sig Dispense Refill ??? Other 6 mg by Injection route as needed (Imitrex 6m g IM - Inject at onset of migraine, then asdirected PRN) ??? DULoxetine (CYMBALTA) 60 MG capsule Take 60 mg by mouth once daily No current facility-administered medications on file prior to encounter. No current outpatient prescriptions on file prior to encounter. Review of Systems A comprehensive review of 14 systems was negative except as described in HPI. PHYSICAL EXAM Vitals: 07/14/15 0030 07/14/15 0443 07/14/15 0759 07/14/15 1144 BP: 108/57 110/76 110/73 116/80 Pulse: 82 88 86 76 Temp: 97.7 ??F 98.1 ??F 98.2 ??F 98.4 ??F Resp: Weight: SpO2: 96% 99% 95% 96% No data found. General: AXO3 Skin: Normal color and temp for age and race. No lesion, rash, or exudate. HEENT: Normocephalic, atraum. EOMI. PERRLA. Mucouse membranes are pink and moist. Neck is supple nontender without lymphadenopathy. Heart: RRR. S1 S2 noted. No murmurs, rubs or gallops. Lungs: CTA. No wheezes, rales, or rhonchi. Abdomen: BS present and normactive x 4 quadrants. Tenderness in the LLQ w/o rebound or guarding. Nopalpable mass or organomegaly. Musculoskeletal: 5/5 strength x 4 extremities. Vascular: No cyanosis, clubbing or edema. Neuro: Alert and oriented x 3. CN exam II-XII intact without focal deficit. Strength symmetric without focal weakness. LAB DATA Recent Labs Component Name 07/13/15 1713 WBC 11.3* HGB 16.2* HCT 49.0* PLTCOUNT 375 Recent Labs Component Name 07/13/15 1713 SODIUM 136 POTASSIUM 3.8 CHLORIDE 107 CO2 20* BUN 23* CREATININE 0.94 GLUCOSE 95 CALCIUM 9.7 ALBUMIN 4.5 ALKPHOS 94 ALT 35 AST 11 TBIL 0.7 TPROT 8.9* EGFR >60 No results for input(s): MAGMGDL in the last 54202 hours. No results for input(s): PHOS in the last 31464 hours. No results for input(s): AMYLASE in the last 89118 hours. No results for input(s): PHART, MJC4AFL, PO2ART, U0OLFCVC, BEART, FIO2 in the last 14592 hours. Invalid input(s): OJU4SOI No results for input(s): BNP in the last 80040 hours. No results for input(s): CDIFFTOXINAB in the last 04700 hours. No results for input(s): HGBA1C in the last 01118 hours. No results for input(s): INR in the last 79588 hours. No results for input(s): CHOL, TRIG, HDL, LDLCALC in the last 91875 hours. No results for input(s): PT in the last 98823 hours. No results for input(s): PTT in the last 62267 hours. No results for input(s): T3FREE in the last 21799 hours. No results for input(s): T4FREE in the last 89973 hours. No results for input(s): TSH in the last 35448 hours. Recent Labs Component Name 07/14/15 0721 COLORUA Yellow SPECGRAVUA 1.021 PHUA 6.0 PROTEINUA Negative BLOODUA 1+* LEUKOCYTEUA 2+* NITRITEUA Negative GLUCOSEUA Negative KETONEUA Negative BILIRUBINUA Negative UROBILINUA 0.2 ASSESSMENT/PLAN Acute diverticulitis -- start cipro/flagyl empirically, continue IVF , analgesia and antiemetic prn -- stool cx, IBD biomarker's given family h/o crohns dx , GI cx for further recs Acute cystitis -- already on cipro, f/u urine cx GERD -- continue PPI Depression -- continue Sero -ve arthritis -- f/u with rheumatology as OP DVT prophylaxis -- heparin Sc D/w ANTHONY Hinton MD The patient is admitted with a diagnosis or diagnoses of Acute diverticulitis and current medical needs include IV abx & hydration, GI Cx. The patient has the following complex medical factors: Sero -ve arthritis documented in this encounter Procedure Notes * Armando Corona MD - 07/15/2015 2:36 PM CDTAssociated Order(s): EGD EGD : Nl esophagus/duodenum Stomach: multiple linear, superficial gastric ulcers Rec - Await pathology results. ?? - PPI to BID, correct timing advised - Carafate - Avoid NSAIDs advised - EGD along with colonscopy in 8 wks to evaluate healing of gastric ulcers , and for diverticulitisand appropriate f/u thereafter; my office shall arrange - ok to go home if tolerates diet ?? documented in this encounter Consult Notes * Armando Corona MD - 07/14/2015 3:39 PM CDTAssociated Order(s): IP CONSULT TO GASTROENTEROLOGY GASTROENTEROLOGY INPATIENT CONSULT ? Referring Physician: No ref. provider found PCP: Feliciano Dash MD Visit Date: 07/14/2015 Reason for consultation:recurrent diverticulitis CC:abd pain x 4d HPI: Madalyn Walton is a 40 y.o.female with pmh of depression, prior diverticulitis who is seen in consultation for the reason mentioned above. Admitted for 4-day hx LLQ pain for which she was apparently dx'd with diverticulitis [address] 2 days ago at [facility] showed diverticulitis colonoscopy in April when I had diverticulitis and it showed inflammation Notes dx of diverticulitis at [facility] in April which resulted in readmission to [facility] for completion of antibiotics. She was symptom free until sx recurred again 4 days [employer]. (+)epigastric abd pain with food over past several weeks (+)NSAIDs - 800mg/d ibuprofen for a long time Currently abd pain is better and she is hungry Review of Systems: Gen/Constitutional: No weight loss, [...] Bilateral ??? Endoscopy, colon, diagnostic ??? Tonsillectomy Family History: No family history on file. Denies family history of GI/liver/pancreaticobiliary disorders or malignancy Social History: Lives at home Tobacco: former. vapes now Etoh: denies Illicits: denies. Allergies: No Known Allergies MEDICATIONS FOR CURRENT ENCOUNTER: Outpatient Current Facility-Administered Medications Medication Dose Route Frequency Provider Last Rate Last Dose ??? oxyCODONE-acetaminophen (PERCOCET) 5-325 MG tablet 1 Tab 1 Tab Oral q4h PRN Chucho Hinton MD 1 Tab at 07/14/15 1355 ??? HYDROmorphone (DILAUDID) injection 0.2 mg 0.2 mg Intravenous q4h PRN Chucho Hinton MD 0.2 mg at 07/14/15 1046 ??? DULoxetine (CYMBALTA) capsule 60 mg 60 mg Oral QDAY Chucho Hinton MD 60 mg at 07/14/15 1156 ??? heparin injection 5,000 Units 5,000 Units Subcutaneous q8h Chucho Hinton MD 5,000 Units at 07/14/15 1355 ??? metronidazole in saline (FLAGYL) IVPB 500 mg 500 mg Intravenous q8h Chucho Hinton MD 500 mgat 07/14/15 1348 ??? ciprofloxacin (CIPRO) IVPB 400 mg 400 mg Intravenous q12h Chucho Hinton MD ??? pantoprazole (PROTONIX) injection 40 mg 40 mg Intravenous QDAY Chucho Hinton MD 40 mg at 07/14/15 1355 ??? 0.9% NaCl injection 1-10 mL 1-10 mL Intracatheter PRN Bri Ugarte MD ??? ondansetron (ZOFRAN) injection 4 mg 4 mg Intravenous q6h PRN Bri Ugarte MD 4 mg at 07/14/15 0303 ??? 0.9% NaCl infusion Intravenous Continuous Bri Ugarte MD 100 mL/hr at 07/14/15 0825 ??? acetaminophen (TYLENOL) tablet 650 mg 650 mg Oral q4h PRN Bri Ugarte MD Inpatient: ciprofloxacin (CIPRO) IVPB 400 mg, Intravenous, q12h DULoxetine (CYMBALTA) capsule 60 mg, Oral, QDAY heparin injection 5,000 Units, Subcutaneous, q8h metronidazole in saline (FLAGYL) IVPB 500 mg, Intravenous, q8h pantoprazole (PROTONIX) injection 40 mg, Intravenous, QDAY [COMPLETED] 0.9% NaCl IV Bolus, Intravenous, Now [COMPLETED] HYDROmorphone (DILAUDID) injection 1 mg, Intravenous, Now [COMPLETED] pantoprazole (PROTONIX) injection 40 mg, Intravenous, Now CONTINUOUS MEDICATIONS: 0.9% NaCl infusion, Intravenous, Continuous PRN MEDICATIONS: 0.9% NaCl injection 1-10 mL, Intracatheter, PRN acetaminophen (TYLENOL) tablet 650 mg, Oral, q4h PRN HYDROmorphone (DILAUDID) injection 0.2 mg, Intravenous, q4h PRN ondansetron (ZOFRAN) injection 4 mg, Intravenous, q6h PRN oxyCODONE-acetaminophen (PERCOCET) 5-325 MG tablet 1 Tab, Oral, q4h PRN Physical Exam: Wt Readings from Last 4 Encounters: 07/13/15 80.74 kg (178 lb) BP 116/80 mmHg Pulse 76 Temp(Src) 98.4 ??F Resp 18 Wt 80.74 kg (178 lb) BMI 28.74 kg/m2 Body mass index is 28.74 kg/(m^2). Gen: In no acute distress, appears stated age obese WF HEENT: Anicteric sclera, Oral mucosa, lips and tongue appear normal. Normal dentition. Neck: Supple, no JVD, no masses, No lymphadenopathy Lungs: CTAB. No dullness. No wheezes. No rales Heart:RRR, normal S1 and S2, no murmurs or extra heart sounds appreciated Abdomen: Soft, ttp epigastrium and LLQ, Not distended, No kaylene ascites, Bowel sounds are normal, No masses or hepatosplenomegaly Ext: No edema, No cyanosis, No clubbing Musculoskeletal: Ambulates, No joint redness, tenderness Neurologic: Grossly nonfocal. Motor 5/5. No sensory deficits. CN grossly intact. A&Ox3 Psych: Appropriate affect, mood, and thought processes. No evidence of hallucination or delirium. Labs Lab Results Component Value Date WBC 11.3* 07/13/2015 HGB 16.2* 07/13/2015 HCT 49.0* 07/13/2015 MCV 83.6 07/13/2015 Lab Results Component Value Date CO2 20* 07/13/2015 BUN 23* 07/13/2015 CALCIUM 9.7 07/13/2015 Lab Results Component Value Date ALKPHOS 94 07/13/2015 AST 11 07/13/2015 ALT 35 07/13/2015 ALBUMIN 4.5 07/13/2015 Recent Labs Component Name 07/13/15 1713 WBC 11.3* HGB 16.2* HCT 49.0* PLTCOUNT 375 Recent Labs Component Name 07/13/15 1713 SODIUM 136 POTASSIUM 3.8 CHLORIDE 107 CO2 20* BUN 23* CREATININE 0.94 GLUCOSE 95 CALCIUM 9.7 ALBUMIN 4.5 ALKPHOS 94 ALT 35 AST 11 TBIL 0.7 TPROT 8.9* EGFR >60 Recent Labs Component Name 07/13/15 1713 SODIUM 136 POTASSIUM 3.8 CHLORIDE 107 CO2 20* BUN 23* CREATININE 0.94 GLUCOSE 95 CALCIUM 9.7 Recent Labs Component Name 07/13/15 1713 ALBUMIN 4.5 ALKPHOS 94 ALT 35 AST 11 TBIL 0.7 TPROT 8.9* No results for input(s): INR in the last 63483 hours. No results for input(s): AMYLASE in the last 74405 hours. Recent Labs Component Name 03/23/16 1713 LIPASE 411* Prior Imaging: CT 2 days ago at [facility] showed diverticulitis Prior Endoscopies: colonoscopy in April when I had diverticulitis and it showed inflammation Pertinent Data: Lactoferrin, stool cx, cdiff pending IMPRESSION Madalyn Walton is a 40 y.o. with * Diverticulitis, by clinical hx, exam, and recent CT at OSH. Consider colitis of any etiology * Elevated lipase - hx not convincing for pancreatitis (rather gastric etiology) * NSAID use * Comorbidities: Depression, arthritides PLAN * obtain CT imaging from [facility] from 2 days prior (young pt, would not want to repeat CT) * 10 days of antibiotics total regardless * f/u stool studies * outpt colonoscopy after inflammation has subsided * EGD tomorrow Thank you for allowing me to participate in the care of your patient. Do not hesitate to contact meif you have further questions. Armando Corona MD [facility], [facility] office: [phone] Exchange: [phone] * Colleen Bragg - 07/14/2015 3:35 PM CDTAssociated Order(s): IP CONSULT FOR ADVANCE DIRECTIVES Advance directive information and advance directive form provided to patient. Colleen Bragg [facility] Hole Puncher Strap documented in this encounter ED Notes * Paris Kaur RN - 07/13/2015 10:09 PM CDT Chart is available for review, submitted by Paris Gutierrez RN at [employer] [phone] Situation: Patient is a 40 y.o. female that came to the ER via Personal Transportation with - Chief Complaint Patient presents with ??? Pain Abdominal AP for 4 days/seen at [facility] and had CT scan as an outpatient/had elevated lipase and amylase/poor oral intake/hx diverticulitis . Problem started 4days ago began having abdominal pain. Increasingly worse for the past two days. Eating or drinking exacerbates pain. Hx of diverticulitis. Reports nausea and diarrhea. No vomiting noted. B Background: Patient being admitted for Final diagnoses: Intractable abdominal pain Level of care General Medicine Significant medial/surgical history includes: Past Medical History Diagnosis Date ??? Diverticulitis ??? Migraine Past Surgical History Procedure Laterality Date ??? Acl reconstruction Bilateral ??? Endoscopy, colon, diagnostic ??? Tonsillectomy A Assessment: LOC: Alert and oriented 4 Lines/Drains/Airways (include gauge/location/fluids infusing as appropriate) 20gauge left AC Cardiac Rhythm Normal Sinus Rhythm Explain any abnormals in physical assessment and/or vital signs Abdominal pain, persistent nausea, diarrhea x1 in ER. Pt AOx4. Ambulatory. Able to use bathroom independently. How was this addressed? IV Fluid bolus, Zofran IVP, Protonix IVP, Dilaudid for pain management. Outcome? Inpatient admission to General Medicine. R Recommendation: Equipment needs: IV pump VOV or no publicity: No Forensic Restraints/police custody: No Sitter: No Suicide Precautions: No Social concerns: No Belongings: Yes Safety concerns: Fall risk: No Isolation: None * Bri Ugarte MD - 07/13/2015 8:28 PM CDT Provider contact with the patient: 07/13/2015 20:28 Madalyn Walton [id number] [facility] EMERGENCY DEPARTMENT History Chief Complaint Patient presents with ??? Pain Abdominal AP for 4 days/seen at [facility] and had CT scan as an outpatient/had elevated lipase and amylase/poor oral intake/hx diverticulitis HPI Comments: Madalyn Walton is a 40 y.o. female with PMHx of diverticulitis and migraines presenting tot ED with a chief complaint of sharp Abdominal Pain onset 4 days with a severity rating of 9/10. Pt states having nausea. Pt states having diarrhea onset 3 days. Pt states LNMP 2.5 weeks ago. Pt states having stomach pain after taking ibuprofen, and therefore has stopped taking it for pain. Pt states having a CAT scan yesterday, but has not received any results. Negative symptoms include vomiting, blood in stool and urine, dysuria. [facility] checked for gallstones and presented negative results. Pt was in hospital for diverticulitis a couple months ago. The history is provided by the patient. Past Medical History Diagnosis Date ??? Diverticulitis ??? Migraine Past Surgical History Procedure Laterality Date ??? Acl reconstruction Bilateral ??? Endoscopy, colon, diagnostic ??? Tonsillectomy No family history on file. History Social [...] ??? Not on file Social History Narrative ??? No narrative on file Review of Systems Review of Systems Constitutional: Negative for fever and chills. HENT: Negative for sore throat. Eyes: Negative for blurred vision and pain. Respiratory: Negative for cough and shortness of breath. Cardiovascular: Negative for chest pain and palpitations. Gastrointestinal: Positive for nausea, abdominal pain ( Sharp ) and diarrhea. Negative for vomiting, constipation and blood in stool. Genitourinary: Negative for dysuria. Musculoskeletal: Negative for back pain and joint pain. Skin: Negative for rash. Neurological: Negative for dizziness, seizures and headaches. Psychiatric/Behavioral: Negative for suicidal ideas. Physical Exam BP 128/99 mmHg Pulse 105 Temp(Src) 97.9 ??F Resp 30 Ht 1.676 m (5' 6 ) Wt 80.74 kg (178 lb) BMI 28.74 kg/m2 SpO2 100% Physical Exam Constitutional: She appears well-developed. She appears distressed. HENT: Head: Normocephalic and atraumatic. Eyes: Pupils are equal, round, and reactive to light. Cardiovascular: Normal rate, regular rhythm, normal heart sounds and intact distal pulses. Exam reveals no gallop and no friction rub. No murmur heard. Abdominal: Soft. Bowel sounds are normal. She exhibits no ascites, no pulsatile midline mass and nomass. There is tenderness in the epigastric area, left upper quadrant and left lower quadrant. There is no rigidity, no rebound and no guarding. Skin: She is not diaphoretic. Nursing note and vitals reviewed. Medications No current outpatient prescriptions on file. Procedures Procedures ECG Interpretation ECG Interpretation Lab Interpretation Oxygen Saturation Interpretation The oxygen saturation level is: 100%. The patient was on Room Air for the saturation measurement. Measurement frequency: Continuous. Oxygen saturation interpretation is Normal. Intervention(s) used: None. Hospital Encounter on 07/13/15 CBC W AUTO DIFFERENTIAL Result Value Ref Range WBC 11.3 (H) 4.4-10.7 x10^9/L WBC Corrected x10^9/L RBC 5.86 (H) 3.80-5.20 x10^12/L Hgb 16.2 (H) 12.0-15.6 gm/dL HCT 49.0 (H) 35.9-45.5 % MCV 83.6 80.7-98.3 fl MCH 27.6 26.7-34.0 pg MCHC 33.1 30.8-35.9 gm/dL Plt Ct 375 153-416 x10^9/L RDW-CV 14.5 12.1-14.9 % MPV 8.6 (L) 9.4-12.9 fl Neutro 67.4 44.0-73.0 % Lymph 24.6 20.0-43.0 % Barron 6.3 5.0-13.0 % Eos 0.5 0.0-6.0 % Baso 0.8 0.0-2.0 % Immature Grans 0.4 0-1 % Neutro Abs 7.61 (H) 2.01-7.14 x10^9/L Lymph Abs 2.78 1.07-3.94 x10^9/L Barron Abs 0.71 0.26-1.07 x10^9/L Eosin Abs 0.06 0-0.47 x10^9/L Baso Abs 0.09 (H) 0-0.08 x10^9/L Immature Grans (Abs) 0.05 0.00-0.06 x10^9/L NRBC Auto 0 /100 WBC COMPREHENSIVE METABOLIC PANEL Result Value Ref Range Glucose 95 74-106 mg/dL Sodium 136 136-145 mmol/L Potassium 3.8 3.5-5.1 mmol/L Chloride 107 98-107 mmol/L CO2 20 (L) 22-31 mmol/L Calcium 9.7 8.5-10.1 mg/dL Anion Gap 9 5-20 mmol/L BUN 23 (H) 7-21 mg/dL Creatinine 0.94 0.50-1.30 mg/dL Alk Phos 94 38-126 U/L ALT/SGPT 35 12-78 U/L AST/SGOT 11 5-40 U/L Protein Total 8.9 (H) 6.4-8.2 gm/dL Albumin 4.5 3.4-5.0 gm/dL Bili Total 0.7 0.2-1.0 mg/dL eGFR MDRD >60 >60 mL/min/1.73m2 eGFR MDRD AFR AMR >60 >60 mL/min/1.73m2 LIPASE BLOOD Result Value Ref Range Lipase 411 (H) 10-220 U/L No orders to display Progress Notes 9:13 PM I discussed with Dr. Dash (PCP) about all pertinent aspects of the case including HPI details, physical exam findings, testing completed, medications given, the pt's current condition, and my clinical impression at this time. Results for CAT scan showed negative. Pt continues to state abdominal pain. Will hold off on repeat CT at this time because patient just received test less than 24 hours ago. 9:36 PM I discussed with BRITT Eaton for Dr. Warren ([facility]) all pertinent aspects of the case including HPIdetails, physical exam findings, testing completed, medications given, the pt's current condition, my clinical impression, and the need for admission for further evaluation and treatment. BRITT Eaton for Dr. Augusto Buitrago agrees to accept the patient at this time. I had a formal disposition interview with the patient/family to discuss the ED visit and disposition plan. The patient/family understand and agree with the plan. Interim orders written by undersigned. ED Course Medical Decision Making I have reviewed the: Previous Chart, Nursing Notes and Vitals.Outside Records: Reviewed CT report from yesterday showing no acute disease- CT abdomen/Pelvis. I have interpreted the following results: Labs and Oxygen Saturation. I have discussed the case with Admitting Physician (BRITT Eaton for Dr. Augusto Buitrago).Discussed with PCP: Dr. Feliciano Dash reports CT did not show any acute disease. Orders Placed This Encounter ??? CBC W AUTO DIFFERENTIAL ??? COMPREHENSIVE METABOLIC PANEL ??? URINALYSIS ROUTINE W/REFLEX TO CULTURE ??? LIPASE BLOOD ??? IP CONSULT TO PASTORAL CARE FOR ADV DIR ??? HCG URINE QUALITATIVE - POINT OF CARE (IP) ??? 0.9% NaCl injection 1-10 mL ??? 0.9% NaCl IV Bolus ??? ondansetron (ZOFRAN) injection 4 mg ??? pantoprazole (PROTONIX) injection 40 mg ??? HYDROmorphone (DILAUDID) injection 1 mg ??? 0.9% NaCl infusion ??? acetaminophen (TYLENOL) tablet 650 mg ??? morphine injection 4 mg Clinical Impression Final diagnoses: Intractable abdominal pain Disposition: Admit to General Medicine under Dr. Warren I have reviewed the information recorded by the scribe and agree with its accuracy and contents--Dr. Ugarte 07/14/2015 1:51 AM Transcribed by Morgan Friend acting scribe on behalf of Dr. Ugarte. 07/13/2015 8:30 PM Transcribed by Mirela Townsend acting scribe on behalf of Dr. Ugarte 07/13/2015 10:06 PM * Paris Kaur RN - 07/13/2015 8:09 PM CDT Pt reports diffuse abdominal pain for the past 2-3 days. Hx of diverticulitis. Rates pain 9/10 at this time. Further states she is nauseated and having intermittent diarrhea. Pain becomes increased with food or fluid intake. documented in this encounter Plan of Treatment Scheduled Orders Name Type Priority Associated Diagnoses Orde r Schedule EGD GI Routine ONCE for 1 Occ urrences starting 07/14/2015 until 07/14/2015 documented as of this encounter Procedures Procedure Name Priority Date/Time Associated Diagnosis Comments HCG URINE QUALITATIVE - POIN T OF CARE Routine 08/01/2015 7:40 PM CDT LAB RESULTS ORDER 07/19/2015 5:06 AM CDT PATHOLOGY TISSUE EXAM (STL) Routine 06/21 2:30 PM CDT Diagnosis unknown ESOPHAGOGASTRODUODENOSCOPY ( EGD) BIOPSY 07/15/2015 2:17 PM CDT Diagnosis unknown ESOPHAGOGASTRODUODENOSCOPY ( EGD) DIAGNOSTIC 07/15/2015 2:17 PM CDT Diagnosis unknown EGD Routine 07/15/2015 2:08 PM CDT HCG URINE QUALITATIVE - POIN T OF CARE Routine 07/15/2015 1:43 PM CDT Intractable abdominal pain MPO/KS 3 AUTOANTIBODIES PANEL AM Draw 5:51 AM CDT Diverticulitis of colon CBC W AUTO DIFFERENTIAL AM Draw 07/15/19 16 5:51 AM CDT Acute cystitis without hematuria C-REACTIVE PROTEIN AM Draw 07/15/2015 5:50 AM CDT Diverticulitis of colon ERYTHROCYTE SEDIMENTATION RATE AM Draw 0 07/15/2015 5:50 AM CDT Diverticulitis of colon LACTIC ACID BLOOD AM Draw 07/15/2015 5:50 AM CDT Diverticulitis of colon LACTOFERRIN FECAL QUALITATIVE Routine 1:44 PM CDT Diverticulitis of colon CULTURE STOOL+ E COLI SHIGA- LIKE TOXIN Routine 07/14/2015 1:43 PM CDT Diverticulitis of colon C DIFFICILE GDH AG + TOXIN A+B Routine 0 07/14/2015 1:43 PM CDT Diverticulitis of colon URINALYSIS REFLEX MICROSCOPI C REFLEX CULTURE STAT 07/14/2015 7:21 AM CDT CULTURE URINE Routine 07/14/2015 7:21 AM CDT CBC W AUTO DIFFERENTIAL STAT 07/13/19 16 5:13 PM CDT COMPREHENSIVE METABOLIC PANEL STAT 5:13 PM CDT LIPASE BLOOD STAT 07/13/2015 5:13 PM CDT documented in this encounter Results * HCG URINE QUALITATIVE - POINT OF CARE (IP) (08/01/2015 7:40 PM CDT) HCG Qual Urine Negative Negative [facility] POCT TESTING QC Verified Yes Yes [facility] POC T TESTING Urine specimen (specimen) URINE / Unknown 08/01/2015 7:40 PM CDT Bri Ugarte MD LAB - POINT OF CARE ORDERABLES Performing Organization Address City/State/[facility] Co de Phone Number [facility] POCT TESTING [address] [phone] * LAB RESULTS ORDER (07/19/2015 5:06 AM CDT) Narrative 07/19/2015 5:06 AM CDT Ordered by an unspecified provider. Scanned Document LAB - THERAPEUTIC DR AMEZCUA MONITORING ORDERABLES * GROSS + MICRO EXAM (STL) (07/15/2015 2:30 PM CDT) Case Report Surgical Pathology Report ? Case: [id number] ? Authorizing Provider: ??Armando Corona MD ?Collected: ? 07/15/2015 02:30 PM ? Ordering Location: ? [facility] ?Received: ?07/16/2015 06:21 AM ? Pathologist: ? Starla Rivera MD ? Specimen: ?Antrum/Gastri c Biopsy ? 07/18/2015 3:33 PM CDT [facility] Final Diagnosis 1. ??Gastric antrum, biopsy: -- ??Focal mild chronic inflammation /[facility] 07/18/2015 3:33 PM CDT [facility] Gross Description Received in formalin in a container labeled Madalyn Walton, Antrum/gastric biopsy. ??The container holds multiple pink-baird tissue fragments, measuring from 0.2 cm, up to 0.8 cm. ??The specimen is entirely submitted in a cassette labeled A1. DYT/tc 07/18/2015 3:33 PM CDT [facility] Microscopic Description Sections show fragments of gastric mucosa with focal mild chronic acute inflammation. There is no evidence of dysplasia or malignancy. An immunostain for H. pylori is negative. All of the stain(s), control slide(s) and test tissue slide(s) were judged as technically acceptable. /[facility] 07/18/2015 3:33 PM CDT [facility] Pathology/Cytolo gy GASTRIC ANTRAL BIOPSY SPECIMEN / Unknown 07/15/2015 2:30 PM CDT 07/16/2015 6:21 AM CDT Armando Corona MD LAB - PATHOLOGY/CYTO LOGY ORDERABLES [facility] [address] [place] [address] * EGD (07/15/2015 2:08 PM CDT) Report Endoscopy POC _ Patient Name: Madalyn Walton ? Procedure Date: 07/15/2015 2:08 PM ? Date of : 1975 ?Admit Type: Inpatient Age: 40 ? Gender: Female Attending MD: Armando Corona, ? _ Procedure: ? Upper GI endoscopy Indications: ? Epigastric abdominal pain Providers: ? Armando Corona (Doctor), Felipe Gasca RN, Daren ? Jose Intake Coordinator Patient Profile: ?? 40F pmh depression, arthritis [...] Procedure Code(s): ? --- Professional --- ? 23029, Esophagogastroduod enoscopy, flexible, transoral; with biopsy, ? single or multiple ? --- Technical --- ? 35665, Esophagogastroduod enoscopy, flexible, transoral; with biopsy, ? single or multiple Diagnosis Code(s): ? --- Professional --- ? K25.9, Gastric ulcer, unspecified as acute or chronic, without ? hemorrhage or perforation ? R10.13, Epigastric pain ? --- Technical --- ? K25.9, Gastric ulcer, unspecified as acute or chronic, without ? hemorrhage or perforation ? R10.13, Epigastric pain CPT copyright 2015 [employer]. All rights reserved. The codes documented in this report are preliminary and upon partner marketing manager review may be revised to meet current compliance requirements. Armando Corona, 07/15/2015 2:36:07 PM This report has been signed electronically. Number of Addenda: 0 Note Initiated On: 07/15/2015 2:08 PM [facility] 07/15/2015 2:08 PM CDT Narrative Transcriptions [...] Armando Corona MD GI PROCEDURE ORDERAB LES [facility] * HCG URINE QUALITATIVE - POINT OF CARE (IP) (07/15/2015 1:43 PM CDT) HCG Qual Urine Negative Negative HC POCT TESTING QC Verified Yes Yes [facility] POC T TESTING Urine specimen (specimen) URINE / Unknown 07/15/2015 1:43 PM CDT Chas Tran MD LAB - POINT OF CARE ORDERABLES Performing Organization Address City/[facility]/ZIP Co de Phone Number [facility] [address] [place] [address] * MPO/KS 3 AUTOANTIBODIES PANEL (07/15/2015 5:51 AM CDT) Anti-myeloperox idase (MPO) Antibody <9.0 0.0 - 9.0 U/mL 07/18/2015 1:17 PM CDT [facility] ([facility]) Anti-proteinase 3 (KS-3) Abs <3.5 0.0 - 3.5 U/mL 07/18/2015 1:17 PM CDT [facility] ([facility]) Blood specimen (specimen) BLOOD SPECIMEN / Unknown Lab Venipuncture / Unknown 07/15/2015 5:51 AM CDT 07/15/2015 6:11 AM CDT Narrative [facility] ([facility]) - 07/18/2015 1:17 PM CDT Performed at: ??01 - [facility] [address] ??[id number] Final Cigar And Box Examiner: Curtis Sanchez MD, Phone: ??[phone] Chucho Hinton MD LAB - CHEMISTRY MORGAN YEE [facility] Organization Address City/State/ZIP Co de Phone Number [facility] ([facility]) * (ABNORMAL) CBC W AUTO DIFFERENTIAL (07/15/2015 5:51 AM CDT) WBC 5.5 4.4 - 10.7 x10^9/L 07/15/2015 6:28 AM CDT [facility] WBC Corrected x10^9/L 07/15/2015 6:28 AM CDT [facility] RBC 4.52 3.80 - 5.20 x10^12/L 07/15/2015 6:28 AM CDT [facility] Hemoglobin 12.5 12.0 - 15.6 gm/dL 07/15/2015 6:28 AM CDT [facility] Hematocrit 38.2 35.9 - 45.5 % 07/15/2015 6:28 AM CDT [facility] MCV 84.5 80.7 - 98.3 fl 07/15/2015 6:28 AM CDT [facility] MCH 27.7 26.7 - 34.0 pg 07/15/2015 6:28 AM CDT [facility] MCHC 32.7 30.8 - 35.9 gm/dL 07/15/2015 6:28 AM CDT [facility] Platelet Count 243 153 - 416 x10^9/L 07/15/2015 6:28 AM CDT [facility] RDW-CV 14.2 12.1 - 14.9 % 07/15/2015 6:28 AM CDT [facility] MPV 8.8(L) 9.4 - 12.9 fl 07/15/2015 6:28 AM CDT [facility] Neutrophils % 57.4 44.0 - 73.0 % 07/15/2015 6:28 AM CDT [facility] Lymphocytes % 33.0 20.0 - 43.0 % 07/15/2015 6:28 AM CDT [facility] Monocytes % 6.8 5.0 - 13.0 % 07/15/2015 6:28 AM CDT [facility] Eosinophils % 1.5 0.0 - 6.0 % 07/15/2015 6:28 AM CDT [facility] Basophils % 0.9 0.0 - 2.0 % 07/15/2015 6:28 AM CDT [facility] Immature Granulocytes 0.4 0 - 1 % 07/15/2015 6:28 AM CDT [facility] Neutrophil Absolute 3.13 2.01 - 7.14 x10^9/L 07/15/2015 6:28 AM CDT [facility] Lymphocytes Absolute 1.80 1.07 - 3.94 x10^9/L 07/15/2015 6:28 AM CDT [facility] Monocytes Absolute 0.37 0.26 - 1.07 x10^9/L 07/15/2015 6:28 AM CDT [facility] Eosinophils Absolute 0.08 0 - 0.47 x10^9/L 07/15/2015 6:28 AM CDT [facility] Basophils Absolute 0.05 0 - 0.08 x10^9/L 07/15/2015 6:28 AM CDT [facility] Immature Granulocytes Absolute 0.02 0.00 - 0.06 x10^9/L 07/15/2015 6:28 AM CDT [facility] nRBC Auto 0 /100 WBC 07/15/2015 6:28 AM CDT [facility] Blood BLOOD SPECIMEN / Unknown Lab Venipuncture / Unknown 07/15/2015 5:51 AM CDT 07/15/2015 6:11 AM CDT Chucho Hinton MD LAB - HEMATOLOGY ORD ERABLES [facility] [address] [place] [address] * LACTIC ACID BLOOD (07/15/2015 5:50 AM CDT) Lactic Acid 0.8 0.7 - 2.1 mmol/L 07/15/2015 6:50 AM T [facility] Blood BLOOD SPECIMEN / Unknown Lab Venipuncture / Unknown 07/15/2015 5:50 AM CDT 07/15/2015 6:11 AM CDT Chucho Hinton MD LAB - CHEMISTRY MORGAN YEE Performing Organization Address [facility] Co de Phone Number [facility] [address] [place] [phone] * (ABNORMAL) C-REACTIVE PROTEIN (07/15/2015 5:50 AM CDT) Pathologist [facility] C-Reactive Protein 0.30(H) <0.30 mg/dL 07/15/2015 6:48 AM CDT [facility] Blood BLOOD SPECIMEN / Unknown Lab Venipuncture / Unknown 07/15/2015 5:50 AM CDT 07/15/2015 6:11 AM CDT Chucho Hinton MD LAB - CHEMISTRY MORGAN YEE Performing Organization Address [facility] Co de Phone Number [facility] [address] [place] [phone] * SED RATE WESTERGREN (07/15/2015 5:50 AM CDT) Pathologist [facility] Erythrocyte Sedimentation Rate Westergren 7 0 - 20 mm/hr 07/15/2015 6:36 AM CDT [facility] Blood BLOOD SPECIMEN / Unknown Lab Venipuncture / Unknown 07/15/2015 5:50 AM CDT 07/15/2015 6:11 AM CDT Chucho Hinton MD LAB - HEMATOLOGY ORD PRIMITIVO Performing Organization Address [facility] Co de Phone Number [facility] [address] [place] [phone] * (ABNORMAL) LACTOFERRIN FECAL QUALITATIVE (07/14/2015 1:44 PM CDT) Pathologist [facility] Lactoferrin Fecal Positive( A) Negative 07/14/2015 9:15 PM CDT [facility] Stool STOOL SPECIMEN / Unknown Collection / Unknown 07/14/2015 1:44 PM CDT 07/14/2015 3:56 PM CDT Narrative [facility] - 07/14/2015 9:15 PM CDT Fecal lactoferrin is a marker for fecal leukocytes. CAUTION: A negative result does not exclude the presence of intestinal inflammation. This test is not recommended for children who are breast-fed; the presence of lactoferrin in breast milk can give false-positive results. Chucho Hinton MD LAB - BODY FLUID ORD ERABLES Performing Organization Address [facility] Co de Phone Number [facility] [address] [facility] [place] [address], [facility] [phone] * CLOSTRIDIUM DIFFICILE GDH AG + TOXIN A+B (07/14/2015 1:43 PM CDT) GDH Antigen Negative Negative, Invalid 07/15/2015 9:08 AM CDT [facility] C difficile Toxin A + B Negative Negative, Invalid 07/15/2015 9:08 AM CDT [facility] Interpretation C difficile Negative for toxigenic C. difficile Negative for toxigenic C. difficile 07/15/2015 9:08 AM CDT [facility] Stool STOOL SPECIMEN / Unknown Collection / Unknown 07/14/2015 1:43 PM CDT 07/14/2015 3:55 PM CDT Chucho Hinton MD LAB - MICROBIOLOGY O RDERABLES Performing Organization Address [facility] de Phone Number [facility] [address] [facility] [place] [address], [facility] [phone] * CULTURE STOOL+ E COLI SHIGA-LIKE TOXIN (07/14/2015 1:43 PM CDT) Culture No growth Salmonella, Shigella, Campylobacter , E. coli 0157:h7 or Yersinia CARLOS EDUARDO 07/17/2015 7:33 AM CDT [facility] Culture Negative E. coli Shiga-like toxin (NM) CARLOS EDUARDO 07/17/2015 7:33 AM CDT [facility] Stool STOOL SPECIMEN / Unknown Collection / Unknown 07/14/2015 1:43 PM CDT 07/14/2015 3:56 PM CDT Chucho Hinton MD LAB - MICROBIOLOGY O ASHLEIGH [facility] [address] [place] [address], [facility] [phone] * CULTURE URINE (07/14/2015 7:21 AM CDT) Culture <10,000 CFU/mL urogenital adelso CARLOS EDUARDO 07/15/2015 12:57 PM CDT [facility] Urine URINE SPECIMEN OBTAINED BY CLEAN CATCH PROCEDURE / Unknown Collection / Unknown 07/14/2015 7:21 AM CDT 07/14/2015 7:52 AM CDT Bri Ugarte MD LAB - MICROBIOLOGY O ASHLEIGH Performing Organization Address [facility]/ZIP Co de Phone Number [facility] [address] [place] [address], [facility] [phone] * (ABNORMAL) URINALYSIS ROUTINE W/REFLEX TO CULTURE (07/14/2015 7:21 AM CDT) Color UA Yellow Straw, Yellow, Dark Yellow 07/14/2015 8:19 AM CDT [facility] Clarity UA Clear 07/14/2015 8:19 AM CDT [facility] Specific [place] UA 1.021 1.005 - 1.030 07/14/2015 8:19 AM CDT [facility] pH UA 6.0 5.0 - 8.0 pH 07/14/2015 8:19 AM CDT [facility] Protein UA Negative Negative 07/14/2015 8:19 AM CDT [facility] Blood UA 1+(A) Negative 07/14/2015 8:19 AM CDT [facility] Leukocyte UA 2+(A) Negative 07/14/2015 8:19 AM CDT [facility] Nitrite UA Negative Negative 07/14/2015 8:19 AM CDT [facility] Glucose UA Negative Negative 07/14/2015 8:19 AM CDT [facility] Ketone UA Negative Negative 07/14/2015 8:19 AM CDT [facility] Bilirubin UA Negative Negative 07/14/2015 8:19 AM CDT [facility] Urobilinogen UA 0.2 0.1 - 1.0 EU/dL 07/14/2015 8:19 AM CDT [facility] WBC UA Auto 5-10(A) 0-2, 2-5 # /hpf 07/14/2015 8:19 AM CDT [facility] RBC UA Auto 10-20(A) 0-2, 2-5 # /hpf 07/14/2015 8:19 AM CDT [facility] Epithelial Cell UA Auto 5-10(A) 0-2, 2-5 # /hpf 07/14/2015 8:19 AM CDT [facility] Bacteria UA Auto 1+(A) None seen 07/14/2015 8:19 AM CDT [facility] Hyaline Casts UA Auto 2-5(A) 0 - 2 #/lpf 07/14/2015 8:19 AM T [facility] Reflex Status Culture to follow 07/14/2015 8:19 AM CDT [facility] Urine URINE SPECIMEN OBTAINED BY CLEAN CATCH PROCEDURE / Unknown Collection / Unknown 07/14/2015 7:21 AM CDT 07/14/2015 7:52 AM CDT Bri Ugarte MD LAB - URINALYSIS ORD ERABLES [facility] [address] [place], [place] [id number] * (ABNORMAL) LIPASE BLOOD (07/13/2015 5:13 PM CDT) Pathologist [facility] Lipase 411(H) 10 - 220 U/L 07/13/2015 5:33 PM CDT [facility] Blood BLOOD SPECIMEN / Unknown Venipuncture / Unknown 07/13/2015 5:13 PM CDT 07/13/2015 5:16 PM CDT Bri Ugarte MD LAB - CHEMISTRY ORDE JOSELITO [facility] [address], [place] [phone] * (ABNORMAL) COMPREHENSIVE METABOLIC PANEL (07/13/2015 5:13 PM CDT) Glucose 95 74 - 106 mg/dL 07/13/2015 5:33 PM CDT [facility] Sodium 136 136 - 145 mmol/L 07/13/2015 5:33 PM CDT [facility] Potassium 3.8 3.5 - 5.1 mmol/L 07/13/2015 5:33 PM CDT [facility] Chloride 107 98 - 107 mmol/L 07/13/2015 5:33 PM CDT [facility] CO2 20(L) 22 - 31 mmol/L 07/13/2015 5:33 PM CDT [facility] Calcium 9.7 8.5 - 10.1 mg/dL 07/13/2015 5:33 PM CDT [facility] Anion Gap 9 5 - 20 mmol/L 07/13/2015 5:33 PM CDT [facility] BUN 23(H) 7 - 21 mg/dL 07/13/2015 5:33 PM CDT [facility] Creatinine 0.94 0.50 - 1.30 mg/dL 07/13/2015 5:33 PM CDT [facility] Alkaline Phosphatase 94 38 - 126 U/L 07/13/2015 5:33 PM CDT [facility] ALT 35 12 - 78 U/L 07/13/2015 5:33 PM CDT [facility] AST 11 5 - 40 U/L 07/13/2015 5:33 PM CDT [facility] Protein Total 8.9(H) 6.4 - 8.2 gm/dL 07/13/2015 5:33 PM CDT [facility] Albumin 4.5 3.4 - 5.0 gm/dL 07/13/2015 5:33 PM CDT [facility] Bilirubin Total 0.7 0.2 - 1.0 mg/dL 07/13/2015 5:33 PM CDT [facility] eGFR by MDRD >60 >60 mL/min/1.7 3m2 07/13/2015 5:33 PM CDT [facility] eGFR by MDRD >60 >60 mL/min/1.7 3m2 07/13/2015 5:33 PM CDT [facility] Blood BLOOD SPECIMEN / Unknown Venipuncture / Unknown 07/13/2015 5:13 PM CDT 07/13/2015 5:16 PM CDT Bri Ugarte MD LAB - CHEMISTRY MORGAN YEE [facility] Organization Address City/State/ZIP Co de Phone Number [facility] [address], [place] [phone] * (ABNORMAL) CBC W AUTO DIFFERENTIAL (07/13/2015 5:13 PM CDT) WBC 11.3(H) 4.4 - 10.7 x10^9/L 07/13/2015 5:19 PM CDT [facility] WBC Corrected x10^9/L 07/13/2015 5:19 PM CDT [facility] RBC 5.86(H) 3.80 - 5.20 x10^12/L 07/13/2015 5:19 PM CDT [facility] Hemoglobin 16.2(H) 12.0 - 15.6 gm/dL 07/13/2015 5:19 PM CDT [facility] Hematocrit 49.0(H) 35.9 - 45.5 % 07/13/2015 5:19 PM CDT [facility] MCV 83.6 80.7 - 98.3 fl 07/13/2015 5:19 PM CDT [facility] MCH 27.6 26.7 - 34.0 pg 07/13/2015 5:19 PM CDT [facility] MCHC 33.1 30.8 - 35.9 gm/dL 07/13/2015 5:19 PM CDT [facility] Platelet Count 375 153 - 416 x10^9/L 07/13/2015 5:19 PM CDT [facility] RDW-CV 14.5 12.1 - 14.9 % 07/13/2015 5:19 PM CDT [facility] MPV 8.6(L) 9.4 - 12.9 fl 07/13/2015 5:19 PM CDT [facility] Neutrophils % 67.4 44.0 - 73.0 % 07/13/2015 5:19 PM CDT [facility] Lymphocytes % 24.6 20.0 - 43.0 % 07/13/2015 5:19 PM CDT [facility] Monocytes % 6.3 5.0 - 13.0 % 07/13/2015 5:19 PM CDT [facility] Eosinophils % 0.5 0.0 - 6.0 % 07/13/2015 5:19 PM CDT [facility] Basophils % 0.8 0.0 - 2.0 % 07/13/2015 5:19 PM CDT [facility] Immature Granulocytes 0.4 0 - 1 % 07/13/2015 5:19 PM CDT [facility] Neutrophil Absolute 7.61(H) 2.01 - 7.14 x10^9/L 07/13/2015 5:19 PM CDT [facility] Lymphocytes Absolute 2.78 1.07 - 3.94 x10^9/L 07/13/2015 5:19 PM CDT [facility] Monocytes Absolute 0.71 0.26 - 1.07 x10^9/L 07/13/2015 5:19 PM CDT [facility] Eosinophils Absolute 0.06 0 - 0.47 x10^9/L 07/13/2015 5:19 PM CDT [facility] Basophils Absolute 0.09(H) 0 - 0.08 x10^9/L 07/13/2015 5:19 PM CDT [facility] Immature Granulocytes Absolute 0.05 0.00 - 0.06 x10^9/L 07/13/2015 5:19 PM CDT [facility] nRBC Auto 0 /100 WBC 07/13/2015 5:19 PM CDT [facility] Blood BLOOD SPECIMEN / Unknown Venipuncture / Unknown 07/13/2015 5:13 PM CDT 07/13/2015 5:16 PM CDT Bri Ugarte MD LAB - HEMATOLOGY ORD ERABLES [facility] Organization Address City/State/[facility] Co de Phone Number [facility] [address] [place] [address] documented in this encounter Visit Diagnoses Diagnosis Acute cystitis without hematuria- Primary Acute cystitis Intractable abdominal pain Abdominal pain, unspecified site Acute cystitis without hematuria Acute cystitis Diverticulitis of colon Diverticulitis of colon (without mention of hemorrhage) Diagnosis unknown Other unknown and unspecified cause of morbidity or mortality documented in this encounter Administered Medications Inactive Administered Medications - up to 3 most recent administrations Medication Order MAR Action Action Date Dose Rate Site 0.9% NaCl infusion at 100 mL/hr, Intravenous, CONTINUOUS, Starting on Sat07/13/15 at 2245, Until 07/16/15 at 1554 $ New Bag/Syringe 07/16/2015 2:47 AM CDT 100 mL/hr $ New Bag/Syringe 07/14/2015 9:49 PM CDT 100 mL /hr $ New Bag/Syringe 07/14/2015 8:25 AM CDT 100 mL /hr 0.9% NaCl IV Bolus 1,000 mL, Administer over 30 Minutes, NOW, 1 dose, On Sat07/13/15 at 2045 $ Given 07/13/2015 8:56 PM CDT 1,000 mL cefTRIAXone (ROCEPHIN) IVPB 1 g 1 g, at 100 mL/hr, Intravenous, EVERY 24 HOURS, First dose on Leydi 07/14/15 at 1015, Until Discontinued $ Given 07/14/2015 10:47 AM CDT 1 g 100 mL/hr ciprofloxacin (CIPRO) IVPB 400 mg 400 mg, at 200 mL/hr, Intravenous, EVERY 12 HOURS, First dose on Sat07/14/15 at 1300, Until Discontinued $ Given 07/16/2015 4:00 AM CDT 400 mg 200 mL /hr $ Given 07/15/2015 5:10 PM CDT 400 mg 200 mL/hr $ Given 07/15/2015 4:14 AM CDT 400 mg 200 mL/hr DULoxetine (CYMBALTA) capsule 60 mg 60 mg, Oral, DAILY, First dose on Leydi 07/14/15 at 1045, Until Discontinued $ Given 07/16/2015 8:03 AM CDT 60 mg $ Given 07/15/2015 8:20 AM CDT 60 mg $ Given 07/14/2015 11:56 AM CDT 60 mg heparin injection 5,000 Units 5,000 Units, Subcutaneous, EVERY 8 HOURS, First dose on Leydi 07/14/15 at 1400, Until Discontinued $ Given 07/16/2015 5:13 AM CDT 5,000 Units Abdominal Tissue $ Given 07/15/2015 10:52 PM CDT 5,000 Units Abdominal Tissue $ Given 07/15/2015 3:41 PM CDT 5,000 Units A bdominal Tissue HYDROmorphone (DILAUDID) injection 0.2 mg 0.2 mg, Intravenous, EVERY 4 HOURS PRN, Moderate Pain, Severe Pain, Starting on Leydi 07/14/15 at 1003, Until 07/16/15 at 1554, Any ordered dose for greater than 1mg IV push of HYDROmorphone should be given incrementally $ Given 07/16/2015 7:13 AM CDT 0.2 mg $ Given 07/16/2015 2:44 AM CDT 0.2 mg $ Given 07/15/2015 8:41 PM CDT 0.2 mg HYDROmorphone (DILAUDID) injection 1 mg 1 mg, Intravenous, NOW, 1 dose, On Sat07/13/15 at 2045, Any ordered dose for greater than 1mg IV push of HYDROmorphone should be given incrementally $ Given 07/13/2015 8:55 PM CDT 1 mg metroNIDAZOLE (FLAGYL) tablet 500 mg 500 mg, Oral, EVERY 8 HOURS, First dose on 07/16/15 at 1300, Until Discontinued, May take with food or milk. $ Given 07/16/2015 2:28 PM CDT 500 mg metronidazole in saline (FLAGYL) IVPB 500 mg 500 mg, at 100 mL/hr, Intravenous, EVERY 8 HOURS, First dose on Leydi 07/14/15 at 1300, Until Discontinued $ Given 07/16/2015 5:13 AM CDT 500 m g 100 mL/hr $ Given 07/15/2015 8:42 PM CDT 500 mg 100 mL/hr $ Given 07/15/2015 12:35 PM CDT 500 mg 100 mL/hr morphine injection 4 mg 4 mg, Intravenous, EVERY 4 HOURS PRN, Severe Pain, Starting on Sat07/13/15 at 2236, Until Leydi 07/14/15 at 1003, For severe pain (pain scale score of 7-10) $ Given 07/14/2015 6:59 AM CDT 4 mg $ Given 07/14/2015 3:05 AM CDT 4 mg $ Given 07/13/2015 11:09 PM CDT 4 mg ondansetron (ZOFRAN) injection 4 mg 4 mg, Intravenous, EVERY 6 HOURS PRN, Nausea/Vomiting, Starting on Sat07/13/15 at 2042, Until 07/16/15 at 1554 $ Given 07/16/2015 2:44 AM CDT 4 mg $ Given 07/15/2015 8:41 PM CDT 4 mg $ Given 07/15/2015 11:07 AM CDT 4 mg oxyCODONE-acetaminophen (PERCOCET) 5-325 MG tablet 1 Tab 1 tablet, Oral, EVERY 4 HOURS PRN, Moderate Pain, Starting on Leydi 07/14/15 at 1003, Until 07/16/15 at 1554 $ Given 07/16/2015 2:28 PM CDT 1 tablet $ Given 07/16/2015 9:39 AM CDT 1 tablet $ Given 07/16/2015 4:05 AM CDT 1 tablet pantoprazole (PROTONIX) injection 40 mg 40 mg, Intravenous, NOW, 1 dose, On Sat07/13/15 at 2045, Reconstitute vial with 10 mL of 0.9% NaCL to a final concentration 4 mg/mL. Adminster prescribed dose over at least 2min. $ Given 07/13/2015 8:55 PM CDT 40 mg pantoprazole (PROTONIX) injection 40 mg 40 mg, Intravenous, DAILY, First dose on Sat07/14/15 at 1245, Until Discontinued, Reconstitute vial with 10 mL of 0.9% NaCL to a final concentration 4 mg/mL. [place] prescribed dose over at least 2min. $ Given 07/15/2015 8:19 AM CDT 40 mg $ Given 07/14/2015 1:55 PM CDT 40 mg pantoprazole EC (PROTONIX) tablet 40 mg 40 mg, Oral, 2 TIMES DAILY (before breakfast and supper), First dose on Sat07/15/15 at 1700, Until Discontinued, 30 mins before meals Do not crush, chew, or cut in half. $ Given 07/16/2015 6:05 AM CDT 40 mg $ Given 07/15/2015 5:09 PM CDT 40 mg sucralfate (CARAFATE) suspension 1 g 1 g, Oral, 4 TIMES DAILY - BEFORE MEALS AND AT BEDTIME, First dose on Sat07/15/15 at 1700, Until Discontinued, Shake well before using. $ Given 07/16/2015 11:40 AM CDT 1 g $ Given 07/16/2015 6:05 AM CDT 1 g $ Given 07/15/2015 8:41 PM CDT 1 g SUMAtriptan (IMITREX) injection 6 mg 6 mg, Subcutaneous, DAILY PRN, Migraine, Starting on Sat07/15/15 at 1154, Until 07/16/15 at 1554, MAX 6 mg/dose and 12 mg/24 hr $ Given 07/15/2015 3:31 PM CDT 6 mg Ab dominal Tissue documented in this encounter Active and Recently Administered Medications Times are shown in CDT. Scheduled Medication Order 07/14/2015 07/15/2015 07/16/2015 cefTRIAXone (ROCEPHIN) IVPB 1 g (CANCELED) 1 g, at 100 mL/hr, Intravenous, EVERY 24 HOURS, First dose on Leydi 07/14/15 at 1015, Until Discontinued 1047 ($ Given - Provider: Briana Sandhu RN)1117 (Rx Stopped - Provider: Briana Sandhu RN) ciprofloxacin (CIPRO) IVPB 400 mg (CANCELED) 400 mg, at 200 mL/hr, Intravenous, EVERY 12 HOURS, First dose on Leydi 07/14/15 at 1300, Until Discontinued 1543 ($ Given - Provider: Briana Sandhu RN)1643 (Rx Stopped - Provider: Briana Sandhu RN) 0414 ($ Given - Provider: Elvia Remy RN)0514 (Rx Stopped - Provider: Elvia Remy RN)1710 ($ Given - Provider: Laurel Flores RN)1810 (Rx Stopped - Provider: Laurel Flores RN) 0400 ($ Given - Provider: Alyse Schaefer)0500 (Rx Stopped - Provider: Alyse Schaefer) ciprofloxacin (CIPRO) tablet 500 mg 500 mg, Oral, EVERY 12 HOURS, First dose on [facility] 07/16/15 at 1600, Until Discontinued, Take with or without food, do not take with mehdi, yogurt or calcium-fortified juice. DULoxetine (CYMBALTA) capsule 60 mg (CANCELED) 60 mg, Oral, DAILY, First dose on Leydi 07/14/15 at 1045, Until Discontinued 1156 ($ Given - Provider: Briana Sandhu RN) 0820 ($ Given - Provider: Laurel Flores, ANTHONY) 0803 ($ Given - Provider: Laurel Flores, ANTHONY) heparin injection 5,000 Units (CANCELED) 5,000 Units, Subcutaneous, EVERY 8 HOURS, First dose on Leydi 07/14/15 at 1400, Until Discontinued 1355 ($ Given - Provider: Briana Sandhu RN)2031 ($ Given - Provider: Elvia Remy RN) 0415 ($ Given - Provider: Elvia Remy RN)1541 ($ Given - Provider: Laurel Flores RN)2252 ($ Given - Provider: Alyse Schaefer) 0513 ($ Given - Provider: Alyse Schaefer)1400 (Not Administered - Provider: Laurel Flores RN - Reason: Refused-Patient) metroNIDAZOLE (FLAGYL) tablet 500 mg 500 mg, Oral, EVERY 8 HOURS, First dose on Sat07/16/15 at 1300, Until Discontinued, May take with food or milk. 1428 ($ Given - Provider: Laurel Flores RN) metronidazole in saline (FLAGYL) IVPB 500 mg (CANCELED) 500 mg, at 100 mL/hr, Intravenous, EVERY 8 HOURS, First dose on Leydi 07/14/15 at 1300, Until Discontinued 1348 ($ Given - Provider: Briana Sandhu RN)1448 (Rx Stopped - Provider: Briana Sandhu RN)2032 ($ Given - Provider: Elvia Remy RN)2132 (Rx Stopped - Provider: Elvia Remy RN) 0407 ($ Given - Provider: Elvia Remy RN)0507 (Rx Stopped - Provider: Elvia Remy RN)1235 ($ Given - Provider: Laurel Flores RN)1335 (Rx Stopped - Provider: Laurel Flores RN)2042 ($ Given - Provider: Alyse Schaefer)2142 (Rx Stopped - Provider: Alyse Schaefer) 0513 ($ Given - Provider: Alyse Schaefer)0613 (Rx Stopped - Provider: Alyse Schaefer) pantoprazole (PROTONIX) injection 40 mg (CANCELED) 40 mg, Intravenous, DAILY, First dose on Leydi 07/14/15 at 1245, Until Discontinued, Reconstitute vial with 10 mL of 0.9% NaCL to a final concentration 4 mg/mL. [place] prescribed dose over at least 2min. 1355 ($ Given - Provider: Briana Sandhu RN) 0819 ($ Given - Provider: Laurel Flores RN) pantoprazole EC (PROTONIX) tablet 40 mg 40 mg, Oral, 2 TIMES DAILY (before breakfast and supper), First dose on Sat07/15/15 at 1700, Until Discontinued, 30 mins before meals Do not crush, chew, or cut in half. 1709 ($ Given - Provider: Laurel Flores RN) 0605 ($ Given - Provider: Alyse Schaefer) sucralfate (CARAFATE) suspension 1 g 1 g, Oral, 4 TIMES DAILY - BEFORE MEALS AND AT BEDTIME, First dose on Sat07/15/15 at 1700, Until Discontinued, Shake well before using. 1710 ($ Given - Provider: Laurel Flores RN)2041 ($ Given - Provider: Alyse Schaefer) 0605 ($ Given - Provider: Alyse Schaefer)1140 ($ Given - Provider: Laurel Flores RN) Continuous Medication Order 07/14/2015 07/15/2015 07/16/2015 0.9% NaCl infusion (CANCELED) at 100 mL/hr, Intravenous, CONTINUOUS, Starting on 07/13/15 at 2245, Until 07/16/15 at 1554 0825 ($ New Bag/Syringe - Provider: Briana Sandhu RN)2149 ($ New Bag/Syringe - Provider: Elvia Remy RN) 0247 ($ New Bag/Syringe - Provider: Alyse Schaefer) 0.9% NaCl infusion (CANCELED) at 20 mL/hr, Intravenous, CONTINUOUS, Starting on Sat07/15/15 at 1400, Until Sat07/15/15 at 1520, Pre-procedure (GI) 1416 ($ New Bag/Syringe - Provider: Indira Jin APRN-[employer]ACH[employer] TIER)1429 (Anesthesia Volume Adjustment - Provider: RODRICK Mann) PRN Medication Order 07/14/2015 07/15/2015 07/16/2015 HYDROmorphone (DILAUDID) injection 0.2 mg (CANCELED) 0.2 mg, Intravenous, EVERY 4 HOURS PRN, Moderate Pain, Severe Pain, Starting on Leydi 07/14/15 at 1003, Until 07/16/15 at 1554, Any ordered dose for greater than 1mg IV push of HYDROmorphone should be given incrementally 1046 ($ Given - Provider: Briana Sandhu RN)1543 ($ Given - Provider: Briana Sandhu RN)2030 ($ Given - Provider: Elvia Remy RN) 0248 ($ Given - Provider: Elvia Remy RN)0820 ($ Given - Provider: Laurel Flores RN)153 ($ Given - Provider: Laurel Flores RN)2040 ($ Given - Provider: Alyse Schaefer) 0244 ($ Given - Provider: Alyse Schaefer)0713 ($ Given - Provider: Alyse Schaefer) morphine injection 4 mg (CANCELED) 4 mg, Intravenous, EVERY 4 HOURS PRN, Severe Pain, Starting on 07/13/15 at 2236, Until Leydi 07/14/15 at 1003, For severe pain (pain scale score of 7-10) 0305 ($ Given - Provider: Elvia Remy RN)0659 ($ Given - Provider: Elvia Remy RN) ondansetron (ZOFRAN) injection 4 mg (CANCELED) 4 mg, Intravenous, EVERY 6 HOURS PRN, Nausea/Vomiting, Starting on 07/13/15 at 2042, Until 07/16/15 at 1554 0303 ($ Given - Provider: Elvia Remy RN)1543 ($ Given - Provider: Briana Sandhu RN)2030 ($ Given - Provider: Elvia Remy RN) 0247 ($ Given - Provider: Elvia Remy RN)1107 ($ Given - Provider: Laurel Flores RN)2040 ($ Given - Provider: Alyse Schaefer) 0244 ($ Given - Provider: Alyse Schaefer) oxyCODONE-acetaminophen (PERCOCET) 5-325 MG tablet 1 Tab 1 tablet, Oral, EVERY 4 HOURS PRN, Moderate Pain, Starting on Leydi 07/14/15 at 1003, Until 07/16/15 at 1554 1355 ($ Given - Provider: Briana Sandhu RN)2152 ($ Given - Provider: Elvia Remy RN) 0413 ($ Given - Provider: Elvia Remy RN)1107 ($ Given - Provider: Laurel Flores, ANTHONY)1709 ($ Given - Provider: Laurel Flores RN)2252 ($ Given - Provider: Alyse Schaefer) 0405 ($ Given - Provider: Alyse Schaefer)0916 ($ Given - Provider: Brunilda Carson, ANTHONY)1424 ($ Given - Provider: Laurel Flores RN) SUMAtriptan (IMITREX) injection 6 mg (CANCELED) 6 mg, Subcutaneous, DAILY PRN, Migraine, Starting on Sat07/15/15 at 1154, Until 07/16/15 at 1554, MAX 6 mg/dose and 12 mg/24 hr 1531 ($ Given - Provider: Laurel Flores, ANTHONY) documented in this encounter Care Teams Paper Cone Grader Relationship Specialty Start Date End Date Jonathan Hartman, RN Catalytic Case Operator 07/14/15 documented as of this encounter
--- OUTSIDE RECORDS SUMMARY | 2024-04-29 19:20 | XMS_ITS | Encounter Summary ---
Author Organization [facility] Address [address] [place] [address] Care Team Providers Care Hospital Aide Name Role Phone Jonathan Hartman RN Unavailable [phone] Reason for Visit * Reason Comments Refill Request Encounter Details Date Type Department Care Team (Late st Contact Info) Description 09/29/2015 Refill [facility] - [address] [address] Armando Corona MD [address] [place] [id number] Refill Request Social History Tobacco Use [...] * Telephone Encounter - Libertad Butts - 09/30/2015 10:51 AM CDT Refill req for pantoprazole documented in this encounter Plan of Treatment Not on file documented as of this encounter Visit Diagnoses Diagnosis Gastroesophageal reflux disease, esophagitis presence not specified- Primary documented in this encounter Care Teams Hospital Aide Relationship Specialty Start Date End Date Jonathan Hartman, RN Pit Inspector 07/14/15 documented as of this encounter
--- OUTSIDE RECORDS SUMMARY | 2024-04-29 19:21 | XMS_ITS | Encounter Summary ---
Author Organization [facility] Address [address] [place] [address] Care Team Providers Care Felt Coverer Name Role Phone Isaiah Quiros MD Primary Care Provider [phone] Reason for Visit * Reason Comments Follow Up ab pain Encounter Details Date Type Department Care Team (Latest Contact Info) Description 12/31/2018 11:15 AM CDT Office Visit [facility] G[facility]enter[facility] [place] A [address] [place] [address] Alex Mahajan MD [address] [facility] [address] [place] [address] 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 syndrome with both constipation and diarrhea (Primary Dx) Social History Tobacco Use Types Packs/Day Years Used Date Smoking Tobacco: Former Cigarettes Q uit: 05/28/2013 Smokeless Tobacco: Never Alcohol Use Standard Drinks/Week Comments Yes 0 (1 standard drink = 0.6 oz pur e alcohol) Sex and Gender Information Value Date Recorded Sex Assigned at Not on file Gender Identity Not on file Sexual Orientation Not on file documented as of this encounter Last Filed Vital Signs Vital Sign Reading Time Taken Comments Blood Pressure 115/79 12/31/2018 11:59 AM CDT Pulse 115 12/31/2018 11:59 AM CDT Temperature - - Respiratory Rate - - Oxygen Saturation - - Inhaled Oxygen Concentration - - Weight 90.3 kg (199 lb) 12/31/2018 11:59 AM CDT estimate Height 165.1 cm (5' 5 ) 12/31/2018 11:59 AM CDT Body Mass Index 33.12 12/31/2018 11:59 AM CDT documented in this encounter Progress Notes * Alex Mahajan MD - 12/31/2018 12:41 PM CDT HISTORY OF PRESENT ILLNESS Madalyn Smith, a 43 y.o. female presents with a Chief Complaint of Follow Up (ab pain) Subjective HPI Patient was discharged from hospital yesterday. Was seen by Dr. Kingsley and Dr. Walker during recent hospitalization. Underwent extensive evaluation over the past few years including EGD, colonoscopy, MRI of the abdomen and CT scan of the abdomen which were all noncontributory. Continues to have diffuse abdominal pain. Reports constipation alternating with diarrhea. Current Outpatient Medications: ??? polyethylene glycol 3350 (MIRALAX) 17 gram/dose Powder, Take 1 SCOOP (17 Grams) by mouth 2 times daily as needed for Constipation. Dissolve in 8 ounces of fluid and drink entire liquid, Disp: 527Gram, Rfl: 0 ??? docusate sodium (COLACE) 50 mg capsule, Take 1 Capsule (50 mg) by mouth 3 times daily as neededfor Constipation., Disp: , Rfl: ??? ALPRAZolam (XANAX) 0.5 mg tablet, Take 1 tablet by mouth 2 times daily., Disp: 6 Tablet, Rfl: 0 ??? lubiprostone (AMITIZA) 24 mcg Capsule, Take 24 mcg by mouth 2 times daily with meals., Disp: , Rfl: ??? azaTHIOprine (AZASAN) 100 mg tablet, Take by mouth., Disp: , Rfl: ??? traZODone (DESYREL) 100 mg tablet, Take 100 mg by mouth daily at bedtime., Disp: , Rfl: ??? pantoprazole (PROTONIX) 40 mg Tablet, Delayed Release (E.C.), TAKE 1 TABLET(40 MG) BY MOUTH DAILY 30 MINUTES BEFORE BREAKFAST, Disp: 90 Tablet, Rfl: 6 ??? dicyclomine (BENTYL) 10 mg capsule, TAKE 1 CAPSULE(10 MG) BY MOUTH EVERY 6 HOURS NEEDED FOR ABDOMINAL PAIN, Disp: 60 Capsule, Rfl: 1 ??? etanercept (ENBREL) 25 mg (1 mL) Recon Soln, Inject 25 mg by subcutaneous injection one time only., Disp: , Rfl: ??? DULoxetine (CYMBALTA) 60 mg Capsule, Delayed Release(E.C.), Take 60 mg by mouth daily., Disp: ,Rfl: ??? buPROPion HCl (WELLBUTRIN XL) 300 mg Extended Release 24 hour tablet, Take 300 mg by mouth daily knot bumper., Disp: , Rfl: ??? pregabalin (LYRICA) 100 mg Capsule, Take 100 mg by mouth., Disp: , Rfl: ??? topiramate (TROKENDI XR) 200 mg Extended Release 24 hour capsule, Take 100 mg by mouth 2 times daily., Disp: , Rfl: ??? ondansetron (ZOFRAN ODT) 4 mg Tablet, Rapid Dissolve, Place 1 Tab under tongue every 8 hours asneeded for Nausea/Emesis., Disp: 15 Tab, Rfl: 0 REVIEW OF SYSTEMS Review of Systems Constitutional: Negative for appetite change, chills, diaphoresis, fatigue, fever and unexpected weight change. HENT: Negative for trouble swallowing. Respiratory: Negative for shortness of breath. Cardiovascular: Negative for chest pain. Gastrointestinal: Negative for abdominal distention, blood in stool, nausea, rectal pain and vomiting. Genitourinary: Negative for flank pain. Skin: Negative for rash. Objective PHYSICAL EXAM BP 115/79 (BP Location: Left arm, Patient Position (BP): Sitting, BP Cuff Size: Adult) Pulse (!) 115 Ht 5' 5 (1.651 m) Wt 90.3 kg (199 lb) Comment: estimate LMP (LMP Unknown) Comment: LMP 5months ago stated on 12/26/2018 BMI 33.12 kg/m?? Physical Exam Vitals signs and nursing note reviewed. Constitutional: Appearance: Normal appearance. She is well-developed. HENT: Head: Normocephalic. Eyes: General: No scleral icterus. Neck: Thyroid: No thyromegaly. Cardiovascular: Rate and Rhythm: Normal rate. Heart sounds: Normal heart sounds. Pulmonary: Effort: Pulmonary effort is normal. No respiratory distress. Breath sounds: Normal breath sounds. Abdominal: General: Bowel sounds are normal. There is no distension. Palpations: Abdomen is soft. Abdomen is not rigid. There is no mass. Tenderness: There is no tenderness. There is no guarding or rebound. Hernia: No hernia is present. Lymphadenopathy: Cervical: No cervical adenopathy. Skin: Findings: No erythema or rash. Neurological: Mental Status: She is alert and oriented to person, place, and time. Procedures Reviewed available lab data and imaging studies. ASSESSMENT and PLAN: ICD-10-CM ICD-9-CM 1. 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 syndrome with both constipation and diarrhea K58.2 564.1 Continue Amitiza 24 mcg p.o. twice daily. Continue Bentyl, increase to 20 mg p.o. every 6 hours as needed for abdominal pain. Discussed about Irritable Bowel Syndrome, triggers, trial of avoidance oftriggers. Avoid IBS triggers such as dairy, caffeine, carbonated beverages, salads and raw vegetables, artificial sweeteners, fatty foods, large portions, chewing gum and chocolate. Discussed about using medications such as Librax for management of IBS symptoms but also discussed about side effect profile and drug interactions and a decision was made to hold off on those at this time. TOBACCO COUNSELING She is not a tobacco user. documented in this encounter Plan of Treatment Not on file documented as of this encounter Visit Diagnoses Diagnosis 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 syndrome with both constipation and diarrhea- Primary documented in this encounter Care Teams Felt Coverer Relationship Specialty Start Date End Date Isaiah Quiros MD [address] [place] [phone] PCP - General Internal Medicine 04/16/18 documented as of this encounter
--- OUTSIDE RECORDS SUMMARY | 2024-04-29 19:21 | XMS_ITS | Encounter Summary ---
Author Organization [facility] Address [address] [place] [address] Care Team Providers Care Lbd Teacher Name Role Phone Isaiah Quiros MD Primary Care Provider [phone] Reason for Visit * Reason Comments Medication Refill Encounter Details Date Type Department Care Team (Late st Contact Info) Description 07/02/2019 Refill [facility] [place] A [address] [place] [address] Alex Mahajan MD [address] [place] [address] Intermittent generalized abdominal pain Social History Tobacco Use Types Packs/Day [...] on file documented as of this encounter Plan of Treatment Not on file documented as of this encounter Visit Diagnoses Diagnosis Intermittent generalized abdominal pain documented in this encounter Care Teams Lbd Teacher Relationship Specialty Start Date End Date Isaiah Quiros MD [address] [place] [id number] PCP - General Internal Medicine 04/16/18 documented as of this encounter
--- OUTSIDE RECORDS SUMMARY | 2024-04-29 19:21 | XMS_ITS | Encounter Summary ---
Author Organization [facility] Address [address] [place] [address] Phone Care Team Providers Care Hoop Coiler Name Role Phone Toi Fair DO Unavailable [phone] Amadeo Hernandez MD Unavailable Isaiah Quiros MD Primary Care Provider [phone] Encounter Details Date Type Department Care Team (Late st Contact Info) Description 09/01/2020 Telephone [facility] - Gastroenterology [facility] [address] [place] [address] Toi Fair, DO [address] [id number] Social History Tobacco Use Types Packs/Day Years Used Date Smoking Tobacco: Never Assessed Comments Unknown Sex and Gender Information Value Date Recorded Sex Assigned at Not on file Legal Sex Female 3:35 PM DIALYSIS TECH Gender Identity Not on file Sexual Orientation Not on file documented as of this encounter Miscellaneous Notes * Telephone Encounter - Omayra Walton - 09/01/2020 10:06 AM CDT Cheo Booking Form documented in this encounter Plan of Treatment Not on file documented as of this encounter Visit Diagnoses Not on filedocumented in this encounter Care Teams Hoop Coiler Relationship Specialty Start Date End Date Isaiah Quiros MD [address], [address] [place], [place] [id number] PCP - General Internal Medicine 05/08/18 Toi Fair DO Gastroenterology 12/03/16 Amadeo Hernandez MD [address] [place] [address] 12/03/16 documented as of this encounter
--- OUTSIDE RECORDS SUMMARY | 2024-04-29 19:21 | XMS_ITS ---
Author Organization [facility] Address [address] [place] [address] Care Team Providers Care Pets Salesperson Name Role Phone NADINE WHITE Unavailable [phone] Allergies No Known Allergies Reason For Referral Reason EVAL AND TREAT Diagnosis 1 Chronic pain syndrom e (G89.4) Referral Organization [facility] Referring Provider First Name TERESA Referring Provider Last Name [facility] Referring Provider Speciality Physician Refrigeration Engineer Referred Provider Specialty Pain Medicin e Referral Priority Routine Referral Appointment Date 02/25/2024 REASON FOR VISIT General Health, Patient requesting service from promotional campaign insurance_pmax Social History Tobacco Use: Social History Observation Description Date Details (start date - stop date) Former Smoker NA - NA Tobacco Control (Standard) Question Answer Notes Tobacco use: Former smoker Problems Problem Type SNOMED Code ICD Code Onset Dates Problem Status W/U Status Risk Notes Problem [id number] Chronic pain syndrome (G89.4) Active confirmed Vital Signs Height 66 in 02/25/2024 Weight 200 lbs 02/25/2024 BMI 32.28 kg/m2 02/25/2024 Patient Reported Normal Bloo d PressurePatient Reported Normal Temperature Encounters Encounter Location Date Provider Diagnosis [facility] [address] [place] [address] 02/25/2024 NADINE WHITE Chronic pain syndrom e G89.4 Assessments Encounter Date Diagnosis (ICD Code) Assessment Notes Treatment Notes Treatment Clinical Notes Section Notes 02/25/2024 Chronic pain syndrome (ICD-10 - G89.4) TREATMENT PLAN Patient presents with likely musculoskeletal pain. There are no new neurologic symptoms this patient is reporting requiring urgent in-person evaluation. Pain appears to be most likely musculoskeletal but there may be a component of nerve pain present in this complex scenario. We can only provide supportive care that focuses on MSK pain. 1. We do not newly prescribe gabapentin, lyrica (pregabalin), opiods, or any state/federal controlled medicines. 2. We can offer oral meloxicam, diclofenac, or celecoxib as needed for a short course (dont take other NSAIDS with this like ibuprofen/aleve/n aproxen). In rare instances, we can provide oral steroids though these come with side effects and frequent usage of steroids can be detrimental to the joints and bones. 3. Robaxin (methocarbamol) 500-1000mg every 8 hours or flexeril (cyclobenzaprine) 10mg every 8 hours as needed can be considered as needed for muscle spasms. 4. If localized pain, particularly at a joint or local muscle area, try over the counter topical diclofenac 1% gel a few times per day (if not allergic). Lidocaine patches, ice/hot patches may also help over the counter (if not allergic). 5. Please followup with your PCP or an in-person physician for any imaging or stronger medications. Addendum: Chart reviewed. 48 yo F w/ chronic pain syndrome. Agree with referral to Pain Medicine. Nadine White, DO 02/25/2024 Other Follow the treatment plan as indicated by the provider. Take any medications as prescribed. If you have any questions about your prescription, ask the pharmacist. Call 911 anytime you think you may need emergency care. For example, call if:You have severe trouble breathing.You have a seizure.Call your doctor now or seek immediate medical care if:You have trouble breathing.You have a fever with a stiff neck or a severe headache.You have pain or pressure in your chest or belly.You have a fever or cough that returns after getting better.You feel very sleepy, dizzy, or confused.You are not urinating.You have severe muscle pain.You have severe weakness, or you are unsteady.You have medical conditions that are getting worse.Watch closely for changes in your health, and be sure to contact your doctor if:You do not get better as expected.You are having a problem with your medicine. Risks, benefits, and side effects of medications (if any) discussed with patient, who agreed to the treatment plan.Patient's condition was stable at the end of the televisit. Follow-up instructions provided, including:Scheduling next appointmentMonitoring symptomsAdhering to treatment planContacting clinic with concernsPatient understood and agreed to comply with the follow-up plan. Plan Of Treatment Treatment Notes Assessment Notes Chronic pain syndrome TREATMENT PLAN Patient presents with likely musculoskeletal pain. There are no new neurologic symptoms this patient is reporting requiring urgent in-person evaluation. Pain appears to be most likely musculoskeletal but there may be a component of nerve pain present in this complex scenario. We can only provide supportive care that focuses on MSK pain. 1. We do not newly prescribe gabapentin, lyrica (pregabalin), opiods, or any state/federal controlled medicines. 2. We can offer oral meloxicam, diclofenac, or celecoxib as needed for a short course (dont take other NSAIDS with this like ibuprofen/aleve/naproxen). In rare instances, we can provide oral steroids though these come with side effects and frequent usage of steroids can be detrimental to the joints and bones. 3. Robaxin (methocarbamol) 500-1000mg every 8 hours or flexeril (cyclobenzaprine) 10mg every 8 hours as needed can be considered as needed for muscle spasms. 4. If localized pain, particularly at a joint or local muscle area, try over the counter topical diclofenac 1% gel a few times per day (if not allergic). Lidocaine patches, ice/hot patches may also help over the counter (if not allergic). 5. Please followup with your PCP or an in-person physician for any imaging or stronger medications. Other Follow the treatment plan as indicated by the provider. Take any medications as prescribed. If you have any questions about your prescription, ask the pharmacist. Call 911 anytime you think you may need emergency care. For example, call if:You have severe trouble breathing.You have a seizure.Call your doctor now or seek immediate medical care if:You have trouble breathing.You have a fever with a stiff neck or a severe headache.You have pain or pressure in your chest or belly.You have a fever or cough that returns after getting better.You feel very sleepy, dizzy, or confused.You are not urinating.You have severe muscle pain.You have severe weakness, or you are unsteady.You have medical conditions that are getting worse.Watch closely for changes in your health, and be sure to contact your doctor if:You do not get better as expected.You are having a problem with your medicine. Referrals Referral Date Details 02/25/2024 02/25/2024, EVAL AND TREAT Next Appt Details Follow Up: PCP, 2W, Reason: Progress Notes * Madalyn SAUERDOB:1975 ( 48 yo F)Acc No.[id number]:02/25/2024 Patient:Madalyn LUJAN Provider:?NADINE WHITE, DO :1975???Age:48 Y???Sex:Female D ate:02/25/2024 Phone: Address:[facility] [address] [phone] Subjective: * Chief Complaints: * ???General HealthPatient req uesting service from promotional campaign insurance_pmax * HPI: ???TeleVisit Consent:?Patient's identification was confirmed and they were instructed that this visit is based on visual, audio information in addition to previous medical notes and diagnostics. As well it relies on the patient for information related to their physical well being, diagnosis and treatment. The patient acknowledges that they are not being recorded today, and they do not have permission to record this visit either. Patient verbalized understanding to all of the above. ???Triage:? Pt in for chronic pain syndrome.? requesting stronger pain medications.? unable to see pcp.? no recent trauma. * ROS:?All Other Systems:?Review of Systems (ROS)?See HPI for details.? * Medical History:? * Surgical History:?Denies Pas t Surgical History * Hospitalization/Major Diagno stic Procedure:?Denies Past Hospitalization * Family History:? Cancer: Parent. * Social History:?Tobacco Use:?Tobacco Control (Standard)?Tobacco use:?Former smoker ???Drugs/Alcohol:?Do you drink alcohol?: No. * Medications:?None * Allergies:?N.K.D.A.no[Allerg ies Verified] Objective: * Vitals:?Ht: 66 in, Wt:200lbs , BMI:32.28Index. Patient Reported Normal Blood Pressure Patient Reported Normal Temperature. * Examination: ???General Examination: ?GENERAL APPEARANCE:?in no acute distress.?EARS:?hearing grossly intact.?NEUROLOGIC:?alert and oriented , speech clear.?PSYCH:?mood/affect normal, understands directions.? Assessment: * Assessment: 1.?Chronic pain syndrome - G 89.4 (Primary)??? Plan: * Treatment: 2.?Others? Notes: Follow the treatment plan as indicated by the provider. Take any medications as prescribed. If you have any questions about your prescription, ask the pharmacist. Call 911anytime you think you may need emergency care. For example, call if:You have severe trouble breathing.You have a seizure.Call your doctor nowor seek immediate medical care if:You have trouble breathing.You have a fever with a stiff neck or a severe headache.You have pain or pressure in your chest or belly.You have a fever or cough that returns after getting better.You feel very sleepy, dizzy, or confused.You are not urinating.You have severe muscle pain.You have severe weakness, or you are unsteady.You have medical conditions that are getting worse.Watch closely for changes in your health, and be sure to contact your doctor if:You do not get better as expected.You are having a problem with your medicine.?? Clinical Notes:Risks, benefits, and side effects of medications (if any) discussed with patient, who agreed to the treatment plan.Patient's condition was stable at the end of the televisit. Follow-up instructions provided, including:Scheduling next appointmentMonitoring symptomsAdhering to treatment planContacting clinic with concernsPatient understood and agreed to comply with the follow-up plan.?? * Procedure Codes:?[facility] [employer] / CC Processing [id number] Office Visit, Est Pt., Level 3 Virtual Visit, Modifiers: 95 * Follow Up:?PCP, 2W * Billing Information: * Visit Code:? * Procedure Codes:? [facility] [employer]t / CC Processing Fee. [id number] Office Visit, Est Pt., Level 3 Virtual Visit. Modifiers: 95 * Sign off status: Completed true * Provider:?NADINE WHITE, DO Date:? 024 Generated for Tree regalado/Caryl/eTransmitting on:?04/29/2024 08:17 PM EST History and Physical Notes * HPI (History of Present Illness) Category Sub-Category Detail Notes Category Not es Triage Pt in for chron ic pain syndrome. requesting stronger pain medications. unable to see pcp. no recent trauma. Examination Category Sub-Category Detail Notes Category Not es General Examination GENERAL APPEARANCE: in no acute di stress EARS: hearing grossly inta ct NEUROLOGIC: alert and oriented , speech clear PSYCH: mood/affect normal, understands directions Consultation Request Notes Referral Date Referring Provider Referred Provider Not es 02/25/2024 TERESA BARAJAS EVAL AND TREAT
--- OUTSIDE RECORDS SUMMARY | 2024-04-29 19:21 | XMS_ITS | Encounter Summary ---
Author Organization [facility] Address [address] [place] [address] Care Team Providers Care Gm Video Name Role Phone Isaiah Quiros MD Primary Care Provider [phone] Reason for Visit * Reason Comments Medication Refill Encounter Details Date Type Department Care Team (Late st Contact Info) Description 03/13/2020 Refill [facility] Gastroenterology [place] A [address] [facility] [facility] [address] [place] [address] Alex Mahajan MD [address] [facility] [address] [place] [address] Social History Tobacco Use Types Packs/Day Years [...] on filedocumented in this encounter Care Teams Gm Video Relationship Specialty Start Date End Date Isaiah Quiros MD [address] [place] [address] PCP - General Internal Medicine 04/16/18 documented as of this encounter
--- OUTSIDE RECORDS SUMMARY | 2024-04-29 19:21 | XMS_ITS | Encounter Summary ---
Author Organization [facility] Address [address] [place] [address] Care Team Providers Care Purchasing Specialist Name Role Phone Isaiah Quiros MD Primary Care Provider [phone] Reason for Visit * Reason Comments Medication Refill Encounter Details Date Type Department Care Team (Late st Contact Info) Description 01/15/2020 Refill [facility] Gastroenterology [place] A [address] [facility] [address] [place] [address] Alex Mahajan MD [address] [facility] [address] [place] [address] Intermittent generalized abdominal pain Social [...] pain documented in this encounter Care Teams Purchasing Specialist Relationship Specialty Start Date End Date Isaiah Quiros MD [address] [place] [phone] PCP - General Internal Medicine 04/16/18 documented as of this encounter
--- OUTSIDE RECORDS SUMMARY | 2024-04-29 19:21 | XMS_ITS | Encounter Summary ---
Author Organization [facility] Address [address] [place] [address] Care Team Providers Care Employment Director Name Role Phone Isaiah Quiros MD Primary Care Provider [phone] Reason for Visit * Reason Comments Follow Up Encounter Details Date Type Department Care Team (Latest Contact Info) Description 04/01/2019 10:30 AM ADVERTISING JOB TITLES Office Visit [facility] Gastroenterology [place] A [address] [facility] [address] [place] [address] Alex Mahajan MD [address] [facility] [address] [place] [address] 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 syndrome with both [...] Sign Reading Time Taken Comments Blood Pressure 131/87 04/01/2019 10:31 AM ADVERTISING JOB TITLES Pulse 101 04/01/2019 10:31 AM ADVERTISING JOB TITLES Temperature - - Respiratory Rate - - Oxygen Saturation - - Inhaled Oxygen Concentration - - Weight 90.5 kg (199 lb 9.6 oz) 04/01/2019 10:31 AM ADVERTISING JOB TITLES Height 170.7 cm (5' 7.2 ) 04/01/2019 10:31 AM CS T Body Mass Index 31.08 04/01/2019 10:31 AM ADVERTISING JOB TITLES documented in this encounter Progress Notes * Alex Mahajan MD - 04/01/2019 11:10 AM CST HISTORY OF PRESENT ILLNESS Madalyn Smith, a 43 y.o. female presents with a Chief Complaint of Follow Up Subjective HPI Patient reports that she is doing much better. Currently takes Amitiza 24 mcg p.o. twice daily and uses Bentyl 20 mg p.o. twice daily. Overall bowel movements are regular. Intermittently experiences constipation and uses magnesium citrate as a rescue medication. But she is happy with the progress at this point. Current Outpatient Medications: ??? dicyclomine (BENTYL) 10 mg capsule, TAKE 2 CAPSULES(20 MG) BY MOUTH EVERY 6 HOURS, Disp: 120 Capsule, Rfl: 0 ??? polyethylene glycol 3350 (MIRALAX) 17 gram/dose [...] BREAKFAST, Disp: 90 Tablet, Rfl: 6 ??? etanercept (ENBREL) 25 mg (1 mL) Recon Soln, Inject 25 mg by subcutaneous injection one time only., Disp: , Rfl: ??? DULoxetine (CYMBALTA) 60 mg Capsule, Delayed Release(E.C.), Take 60 mg by mouth daily., Disp: ,Rfl: ??? buPROPion HCl (WELLBUTRIN XL) 300 mg Extended Release 24 hour tablet, Take 300 mg by mouth daily upsetter., Disp: , Rfl: ??? pregabalin (LYRICA) 100 [...] chest pain. Gastrointestinal: Negative for abdominal distention, abdominal pain, blood in stool, diarrhea, nausea, rectal pain and vomiting. Genitourinary: Negative for flank pain. Skin: Negative for rash. Objective PHYSICAL EXAM BP 131/87 (BP Location: Left arm, Patient Position (BP): Sitting, BP Cuff Size: Adult) Pulse (!) 101 Ht 5' 7.2 (1.707 m) Wt 90.5 kg (199 lb 9.6 oz) LMP (LMP Unknown) Comment: LMP 5 months ago stated on 12/26/2018 BMI 31.08 kg/m?? Physical Exam Vitals signs and nursing [...] is no mass. Tenderness: There is no abdominal tenderness. There is no guarding or rebound. [...] Amitiza 24 mcg p.o. twice daily. Continue Bentyl 20 mg p.o. twice daily and use additionaldoses as needed up to a maximum of 4 doses per day. Okay to use Milk of magnesia as needed intermittently if constipation is not under control with above measures. TOBACCO COUNSELING She is not a tobacco user. RTISING JOB TITLES documented in this encounter Plan of Treatment Not on file documented as of this encounter Visit Diagnoses Diagnosis 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 syndrome with both constipation and diarrhea- Primary documented in this encounter Care Teams Employment Director Relationship Specialty Start Date End Date Isaiah Quiros MD [address] [place] [phone] PCP - General Internal Medicine 04/16/18 documented as of this encounter
--- OUTSIDE RECORDS SUMMARY | 2024-04-29 19:21 | XMS_ITS | Clinical Summary ---
Author Organization [facility] Address [address] [place] [address]. [place], [place] [address] [place] [address] Care Team Providers Care Shellfish Processing Machine Tender Name Role Phone Bhupinder Tobias MD Primary Care Provider [phone] Allergies No known active allergies Medications HYDROcodone-ibup rofen 7.5-200 MG tabletIndication s:Acute Pain < 3 Day Supply Take 1 tablet by mouth every 8 (eight) hours as needed. Indications : Acute Pain < 3 Day Supply 8 tablet 03/01/2021 Active Social History Tobacco Use Types Packs/Day Years Used Date Smoking Tobacco: Former Smokeless Tobacco: Never Alcohol Use Standard Drinks/Week Comments Yes 0 (1 standard drink = 0.6 oz pur e alcohol) rarely Comments No Sex and Gender Information Value Date Recorded Sex Assigned at Not on file Legal Sex Female 12:23 PM PRINCIPAL PROGRAMMER Gender Identity Not on file Sexual Orientation Not on file Last Filed Vital Signs Vital Sign Reading Time Taken Comments Blood Pressure 108/79 03/01/2021 3:00 PM PRINCIPAL PROGRAMMER Pulse 79 03/01/2021 3:00 PM PRINCIPAL PROGRAMMER Temperature 36.2 ??C (97.2 ??F) 03/01/2021 1 2:34 PM PRINCIPAL PROGRAMMER Respiratory Rate 16 03/01/2021 3:00 PM PRINCIPAL PROGRAMMER Oxygen Saturation 98% 03/01/2021 3:00 PM PRINCIPAL PROGRAMMER Inhaled Oxygen Concentration - - Weight 86.1 kg (189 lb 13.1 oz) 021 12:34 PM PRINCIPAL PROGRAMMER Height 167.6 cm (5' 6 ) 03/01/2021 12:3 4 PM PRINCIPAL PROGRAMMER Body Mass Index 30.64 03/01/2021 12:34 PM PRINCIPAL PROGRAMMER Plan of Treatment Health Maintenance Due Date Last Done Comments Cervical Cancer Screening Pap Smear (Age 30 to 64) Every 3 Years 1974 Colorectal Cancer Screening Colonoscopy (10 Years) 1974 Annual Physical 1977 Hepatitis C 1992 DTaP, Tdap and Td Vaccines (1 - Tdap) 1993 Hepatitis B Vaccines (1 of 3 - 19+ 3-dose series) 1993 Cervical Cancer Screening Pap with HPV Testing (Age 30 to 64) Every 5 Years 2004 Cervical Cancer Screening with HPV 2004 Mammogram Screening 2014 COVID-19 Vaccine ( season) 2023 02/02/2021, 07/21/2020, 06/30/2020 Influenza Adult (#1) 2024 01/22/2020, 02/05/2018, 01/30/2017, Additional history exists Meningococcal Vaccine Aged Out No ector dulce eligible based on patient's age to complete this topic Pneumococcal Vaccine: Pediatrics (0 to 5 Years) and At-Risk Patients (6 to 64 Years) Aged Out No longer eligible based on patient's age to complete this topic RSV Immunizations Under 20 Months Aged Out No longer eligible based on patient's age to complete this topic Insurance [facility] Care Teams Shellfish Processing Machine Tender Relationship Specialty Start Date End Date Bhupinder Tobias MD [address] [place] [address] PCP - General INTERNAL MEDICINE 03/01/21
--- OUTSIDE RECORDS SUMMARY | 2024-04-29 19:21 | XMS_ITS | Encounter Summary ---
Author Organization [facility] Address [address] [place] [address] Care Team Providers Care Plasterer Journeyman Name Role Phone Isaiah Quiros MD Primary Care Provider [phone] Reason for Visit * Reason Comments Medication Refill Encounter Details Date Type Department Care Team (Late st Contact Info) Description 09/17/2019 Refill [facility] Gastroenterology [place] A [address] [facility] [address] [place] [address] Alex Mahajan MD [address] [facility] [address] [place] [address] Intermittent generalized abdominal pain Social [...] pain documented in this encounter Care Teams Plasterer Journeyman Relationship Specialty Start Date End Date Isaiah Quiros MD [address] [place] [phone] PCP - General Internal Medicine 04/16/18 documented as of this encounter
--- OUTSIDE RECORDS SUMMARY | 2024-04-29 19:21 | XMS_ITS | Encounter Summary ---
Author Organization [facility] Address [address] [place] [address] Care Team Providers Care Auctioneer Automobile Name Role Phone Isaiah Quiros MD Primary Care Provider [phone] Reason for Visit * Reason Comments Medication Refill Encounter Details Date Type Department Care Team (Late st Contact Info) Description 04/30/2019 Refill [facility] Gastroenterology [place] A [address] [facility] [address] [place] [address] Alex Mahajan MD [address] [facility] [address] [place] [address] Intermittent generalized abdominal pain Social [...] pain documented in this encounter Care Teams Auctioneer Automobile Relationship Specialty Start Date End Date Isaiah Quiros MD [address] [place] [phone] PCP - General Internal Medicine 04/16/18 documented as of this encounter
--- OUTSIDE RECORDS SUMMARY | 2024-04-29 19:21 | XMS_ITS | Encounter Summary ---
Author Organization [facility] Address [address] [place] [address] Care Team Providers Care Vessel Specialist Name Role Phone Jonathan Hartman Rhett RN Unavailable [phone] Reason for Visit * Reason Comments Pain Abdominal AP for 4 days/seen a jacqueline Grider and had CT scan as an outpatient/had elevated lipase and amylase/poor oral intake/hx diverticulitis * Auth/Cert Specialty Diagnoses / Procedures Referred By Kaylynn phillips Referred To Contact Diagnoses Intractable abdominal pain Referral ID Status Reason Start Date Expiration Date Visits Re quested Visits Authorized [id number] 1 1 Encounter Details Date Type Department Care Team (Latest Contact Info) Description 07/15/2015 1:00 PM CDT - 07/15/2015 1:30 PM CDT Surgery [facility] - Endoscopy Services [address] [place] [address] Armando Corona MD [address] [place] [address] [place] [id number] ESOPHAGOGASTRODUODENOSCOPY (EGD) Surgery Details Date/Time Status Location OR Service Patient Class Case Class Case Type Trauma Case? 07/15/2015 1:00 PM Posted [facility] Endo 05 Gastroenterology Inpatient Elective > 5 days Panel [...] Comments Your discharge diagnosis is Gastric ulcer [[id number]] Follow up with Primary Care Provider (PCP) [...] 97.7 ??F 98.6 ??F 98.5 ??F Resp: 16 18 20 Weight: SpO2: 100% 98% 99% 99% [...] Laurel Flores RN 07/15/2015 8:01 PM * aLurel Flores RN - 07/15/2015 5:43 PM CDT [...] [facility]. Will attempt to see [...] since midnight. Call light in reach. Elvia Remy RN 07/15/2015 8:14 AM * Briana Sandhu RN [...] joints. She reports she has seen a trouble locater and was recently diagnosed with seronegative arthritis. They plan to start treatment after her current issues are resolved. She has trouble ambulating, especially after sitting for long periods of time and would like a cane. Evaluation: Mobility: Supine to Sit: Complete [place] Sit to Supine: Complete [place] Sit to Stand: Complete [place] Stand to Sit: Complete [place] Distance Ambulated: 50 FEET Ambulation: Assistive Device: [...] have been applied: Functional Assessment Tool Used: [facility] AM-PAC Basic Mobility Inpatient Short Form Score: [...] Contact Information Primary Emergency Contact: Toi Smith [facility] Relation: Significant other Anticipated Discharge Date: Anticipated Discharge Date: 07/15/15 Anticipated level of care / disposition at discharge: Home Prior Level of Functioning: 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 Jonathan Hartman RN CM [phone] (this number is not to be given to pt's or families) * Elvia Remy RN - 07/14/2015 2:30 AM CDT Shift summary: A&O X4. VSS. Morphine given for pain in abd. Pt states the dilaudid worked for her better in the ED. Dr notified and does not want to change [...] Diagnosis: C/O upper abdominal pain and nuasea. Richardson has an elevated amylase and lipase PCP Name: Feliciano Molina in [place], [place] PCP to be contacted?: Emergency Dept to notify Referring physician does not request call back. If patient admitted, admit to PCP. Zully Alfaro RN [facility] Access LIne [phone] documented in this encounter H&P Notes * [...] Pain Abdominal AP for 4 days/seen at [facility] and had CT scan as an outpatient/had [...] 98.1 ??F 98.2 ??F 98.4 ??F Resp: 18 Weight: SpO2: 96% 99% 95% 96% No [...] results for input(s): MAGMGDL in the last 54986 hours. No results for input(s): PHOS in the last 43846 hours. No results for input(s): AMYLASE in the last 27842 hours. No results for input(s): PHART, WKP0BXI, PO2ART, Z0HKDWWA, BEART, FIO2 in the last 99303 hours. Invalid input(s): BSE2UDQ No results for input(s): BNP in the last 94815 hours. No results for input(s): CDIFFTOXINAB in the last 67022 hours. No results for input(s): HGBA1C in the last 23160 hours. No results for input(s): INR in the last 85836 hours. No results for input(s): CHOL, TRIG, HDL, LDLCALC in the last 46946 hours. No results for input(s): PT in the last 64967 hours. No results for input(s): PTT in the last 43072 hours. No results for input(s): T3FREE in the last 10570 hours. No results for input(s): T4FREE in the last 71212 hours. No results for input(s): TSH in the last 38200 hours. Recent Labs Component Name 07/14/15 0721 [...] days prior CT 2 days ago at [facility] showed diverticulitis colonoscopy in April when I had diverticulitis and it showed inflammation Notes dx of diverticulitis at [facility] in April which resulted in readmission to [facility] for completion of antibiotics. 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 (+)epigastric abd pain with food over past [...] results for input(s): INR in the last 70278 hours. No results for input(s): AMYLASE in the last 23442 hours. Recent Labs Component Name 07/13/15 1713 LIPASE 411* Prior Imaging: CT 2 days ago at [facility] showed diverticulitis Prior Endoscopies: colonoscopy in April [...] arthritides PLAN * obtain CT imaging from [facility] from 2 days prior (young pt, would not want to repeat CT) * 10 days of antibiotics total regardless * f/u stool studies * outpt colonoscopy after inflammation has subsided * EGD tomorrow Thank you for allowing me to participate in the care of your patient. Do not hesitate to contact meif you have further questions. Armando Corona MD [facility], Gastroenterology South Division [facility] office: [phone] Exchange: [phone] * Colleen Bragg - 07/14/2015 3:35 PM CDTAssociated Order(s): IP CONSULT FOR ADVANCE DIRECTIVES Advance directive information and advance directive form provided to patient. Colleen Bragg [facility] Fashion Consultant documented in this encounter ED Notes * Paris Kaur RN - 07/13/2015 10:09 PM CDT Chart is available for review, submitted by Paris Gutierrez RN at As[employer] [phone] Situation: Patient is a 40 y.o. female that came to the ER via Personal Transportation with - Chief Complaint Patient presents with ??? Pain Abdominal AP for 4 days/seen at [facility] and had CT scan as an outpatient/had [...] with the patient: 07/13/2015 20:28 Madalyn Walton [id number] [facility] EMERGENCY DEPARTMENT History Chief Complaint Patient presents with ??? Pain Abdominal AP for 4 days/seen at [facility] and had CT scan as an outpatient/had [...] vomiting, blood in stool and urine, dysuria. [facility] checked for gallstones and presented negative [...] 67.4 44.0-73.0 % Lymph 24.6 20.0-43.0 % [place] 6.3 5.0-13.0 % Eos 0.5 0.0-6.0 % Baso 0.8 0.0-2.0 % Immature Grans 0.4 0-1 % Neutro Abs 7.61 (H) 2.01-7.14 x10^9/L Lymph Abs 2.78 1.07-3.94 x10^9/L [place] Abs 0.71 0.26-1.07 x10^9/L Eosin Abs 0.06 [...] for Dr. [facility]o Buitrago).Discussed with PCP: Dr. eFliciano Dash reports CT did not show any [...] 07/15/2015 1:43 PM CDT Intractable abdominal pain MPO/CT 3 AUTOANTIBODIES PANEL AM Draw 5:51 AM [...] POINT OF CARE ORDERABLES Performing Organization Address City/State/[facility] Co de Phone Number [facility] POCT TESTING [address] [place] [address] * LAB RESULTS ORDER (07/19/2015 5:06 AM CDT) Narrative 07/19/2015 5:06 AM CDT Ordered by an unspecified provider. Scanned Document LAB - THERAPEUTIC DR UG MONITORING ORDERABLES * GROSS + MICRO EXAM (STL) (07/15/2015 2:30 PM CDT) Case Report Surgical Pathology Report ? Case: [id number] ? Authorizing Provider: ??Armando Corona MD ?Collected: ? 07/15/2015 02:30 PM ? Ordering Location: ? [facility] ?Received: ?07/16/2015 06:21 AM ? Pathologist: ? Starla Rivera MD ? Specimen: ?Antrum/Gastri c Biopsy ? 07/18/2015 3:33 PM CDT [facility] Final Diagnosis 1. ??Gastric antrum, biopsy: -- ??Focal mild chronic inflammation [facility] 07/18/2015 3:33 PM CDT [facility] Gross Description Received in formalin in a container labeled Madalyn Walton, Antrum/gastric biopsy. ??The container holds multiple pink-baird tissue fragments, measuring from 0.2 cm, up to 0.8 cm. ??The specimen is entirely submitted in a cassette labeled A1. DYT/tc 07/18/2015 3:33 PM CDT [facility] Microscopic Description Sections show fragments of gastric mucosa with focal mild chronic acute inflammation. There is no evidence of dysplasia or malignancy. An immunostain for H. pylori is negative. All of the stain(s), control slide(s) and test tissue slide(s) were judged as technically acceptable. [facility] 07/18/2015 3:33 PM CDT [facility] Pathology/Cytolo gy GASTRIC ANTRAL BIOPSY SPECIMEN / Unknown 07/15/2015 2:30 PM CDT 07/16/2015 6:21 AM CDT Armando Corona MD LAB - PATHOLOGY/CYTO LOGY ORDERABLES [facility] [address] [place] [address] * EGD (07/15/2015 2:08 PM CDT) Report Endoscopy POC _ Patient Name: Madalyn Walton ? Procedure Date: 07/15/2015 2:08 PM ? Date of : 1975 ?Admit Type: Inpatient Age: 40 ? Gender: Female Attending MD: Armando Corona, ? _ Procedure: ? Upper GI endoscopy Indications: ? Epigastric abdominal pain Providers: ? Armando Corona (Doctor), Felipe Gasca RN, Daren ? Jose, Associate Biological Sales Patient Profile: ?? 40F pmh depression, arthritis [...] Procedure Code(s): ? --- Professional --- ? 36439, Esophagogastroduod enoscopy, flexible, transoral; with biopsy, ? single or multiple ? --- Technical --- ? 58728, Esophagogastroduod enoscopy, flexible, transoral; with biopsy, ? single or multiple Diagnosis Code(s): ? --- Professional --- ? K25.9, Gastric ulcer, unspecified as acute or chronic, without ? hemorrhage or perforation ? R10.13, Epigastric pain ? --- Technical --- ? K25.9, Gastric ulcer, unspecified as acute or chronic, without ? hemorrhage or perforation ? R10.13, Epigastric pain CPT copyright 2015 [employer]. All rights reserved. The codes documented in this report are preliminary and upon facility manager review may be revised to meet current compliance requirements. Armando Corona, 07/15/2015 2:36:07 PM This report has been signed electronically. Number of Addenda: 0 Note Initiated On: 07/15/2015 2:08 PM [facility] 07/15/2015 2:08 PM CDT Narrative Transcriptions [...] Armando Corona MD GI PROCEDURE ORDERAB LES [facility] * HCG URINE QUALITATIVE - POINT OF CARE (IP) (07/15/2015 1:43 PM CDT) HCG Qual Urine Negative Negative [facility] POCT TESTING QC Verified Yes Yes [facility] POC T TESTING Urine specimen (specimen) URINE / Unknown 07/15/2015 1:43 PM CDT Chas Tran MD LAB - POINT OF CARE ORDERABLES [facility] PO[facility] TESTING [address] [place] [address] * MPO/CT 3 AUTOANTIBODIES PANEL (07/15/2015 5:51 AM CDT) Anti-myeloperox idase (MPO) Antibody <9.0 0.0 - 9.0 U/mL 07/18/2015 1:17 PM CDT [facility] ([facility]) Anti-proteinase 3 (CT-3) Abs <3.5 0.0 - 3.5 U/mL 07/18/2015 1:17 PM CDT [facility] ([facility]) Blood specimen (specimen) BLOOD SPECIMEN / Unknown Lab Venipuncture / Unknown 07/15/2015 5:51 AM CDT 07/15/2015 6:11 AM CDT Narrative [facility] ([facility]) - 07/18/2015 1:17 PM CDT Performed at: ??01 - [facility] [address] ??[id number] Lease Out Man: Curtis Sanchez MD, Phone: ??[phone] Chucho Hinton MD LAB - CHEMISTRY MORGAN YEE [facility] ([facility]) * (ABNORMAL) CBC W AUTO DIFFERENTIAL (07/15/2015 5:51 AM CDT) WBC 5.5 4.4 - 10.7 x10^9/L 07/15/2015 6:28 AM CDT [facility] WBC Corrected x10^9/L 07/15/2015 6:28 AM CDT [facility] RBC 4.52 3.80 - 5.20 x10^12/L 07/15/2015 6:28 AM CDT [facility] Hemoglobin 12.5 12.0 - 15.6 gm/dL 07/15/2015 6:28 AM CDT [facility] Hematocrit 38.2 35.9 - 45.5 % 07/15/2015 6:28 AM CDT [facility] MCV 84.5 80.7 - 98.3 fl 07/15/2015 6:28 AM CDT [facility] MCH 27.7 26.7 - 34.0 pg 07/15/2015 6:28 AM CDT [facility] MCHC 32.7 30.8 - 35.9 gm/dL 07/15/2015 6:28 AM CDT [facility] Platelet Count 243 153 - 416 x10^9/L 07/15/2015 6:28 AM CDT [facility] RDW-CV 14.2 12.1 - 14.9 % 07/15/2015 6:28 AM CDT [facility] MPV 8.8(L) 9.4 - 12.9 fl 07/15/2015 6:28 AM CDT [facility] Neutrophils % 57.4 44.0 - 73.0 % 07/15/2015 6:28 AM CDT [facility] Lymphocytes % 33.0 20.0 - 43.0 % 07/15/2015 6:28 AM CDT [facility] Monocytes % 6.8 5.0 - 13.0 % 07/15/2015 6:28 AM CDT [facility] Eosinophils % 1.5 0.0 - 6.0 % 07/15/2015 6:28 AM CDT [facility] Basophils % 0.9 0.0 - 2.0 % 07/15/2015 6:28 AM CDT [facility] Immature Granulocytes 0.4 0 - 1 % 07/15/2015 6:28 AM CDT [facility] Neutrophil Absolute 3.13 2.01 - 7.14 x10^9/L 07/15/2015 6:28 AM CDT [facility] Lymphocytes Absolute 1.80 1.07 - 3.94 x10^9/L 07/15/2015 6:28 AM CDT [facility] Monocytes Absolute 0.37 0.26 - 1.07 x10^9/L 07/15/2015 6:28 AM CDT [facility] Eosinophils Absolute 0.08 0 - 0.47 x10^9/L 07/15/2015 6:28 AM CDT [facility] Basophils Absolute 0.05 0 - 0.08 x10^9/L 07/15/2015 6:28 AM CDT [facility] Immature Granulocytes Absolute 0.02 0.00 - 0.06 x10^9/L 07/15/2015 6:28 AM CDT [facility] nRBC Auto 0 /100 WBC 07/15/2015 6:28 AM CDT [facility] Blood BLOOD SPECIMEN / Unknown Lab Venipuncture / Unknown 07/15/2015 5:51 AM CDT 07/15/2015 6:11 AM CDT Chucho Hinton MD LAB - HEMATOLOGY ORD ERABLES [facility] [address] [place] [address] * LACTIC ACID BLOOD (07/15/2015 5:50 AM CDT) Lactic Acid 0.8 0.7 - 2.1 mmol/L 07/15/2015 6:50 AM CDT [facility] Blood BLOOD SPECIMEN / Unknown Lab Venipuncture / Unknown 07/15/2015 5:50 AM CDT 07/15/2015 6:11 AM CDT Chucho Hinton MD LAB - CHEMISTRY MORGAN YEE Performing Organization Address [facility] Co de Phone Number [facility] [address] [place] [phone] * (ABNORMAL) C-REACTIVE PROTEIN (07/15/2015 5:50 AM CDT) C-Reactive Protein 0.30(H) <0.30 mg/dL 07/15/2015 6:48 AM CDT [facility] Blood BLOOD SPECIMEN / Unknown Lab Venipuncture / Unknown 07/15/2015 5:50 AM CDT 07/15/2015 6:11 AM CDT Chucho Hinton MD LAB - CHEMISTRY MORGAN YEE Performing Organization Address [facility] Co de Phone Number [facility] [address] [place] [address] * SED RATE WESTERGREN (07/15/2015 5:50 AM CDT) Pathologist [facility] Erythrocyte Sedimentation Rate Westergren 7 0 - 20 mm/hr 07/15/2015 6:36 AM CDT [facility] Blood BLOOD SPECIMEN / Unknown Lab Venipuncture / Unknown 07/15/2015 5:50 AM CDT 07/15/2015 6:11 AM CDT Chucho Hinton MD LAB - HEMATOLOGY ORD PRIMITIVO Performing Organization Address [facility] Co de Phone Number [facility] [address] [place] [address] * (ABNORMAL) LACTOFERRIN FECAL QUALITATIVE (07/14/2015 1:44 PM CDT) Lactoferrin Fecal Positive( A) Negative 07/14/2015 9:15 PM CDT [facility] Stool STOOL SPECIMEN / Unknown Collection / Unknown 07/14/2015 1:44 PM CDT 07/14/2015 3:56 PM CDT Narrative [facility] - 07/14/2015 9:15 PM CDT Fecal lactoferrin is a marker for fecal leukocytes. CAUTION: A negative result does not exclude the presence of intestinal inflammation. This test is not recommended for children who are breast-fed; the presence of lactoferrin in breast milk can give false-positive results. Chucho Hinton MD LAB - BODY FLUID ORD ERABLES Performing Organization Address City/[facility] Co de Phone Number [facility] [address] [place] [address], [facility] [phone] * CLOSTRIDIUM DIFFICILE GDH AG + TOXIN A+B (07/14/2015 1:43 PM CDT) GDH Antigen Negative Negative, Invalid 07/15/2015 9:08 AM CDT [facility] C difficile Toxin A + B Negative Negative, Invalid 07/15/2015 9:08 AM CDT [facility] Interpretation C difficile Negative for toxigenic C. difficile Negative for toxigenic C. difficile 07/15/2015 9:08 AM CDT [facility] Stool STOOL SPECIMEN / Unknown Collection / Unknown 07/14/2015 1:43 PM CDT 07/14/2015 3:55 PM CDT Chucho Hinton MD LAB - MICROBIOLOGY O RDERABLES Performing Organization Address City/[facility]/ZIP Co de Phone Number [facility] [address] [place] [address], [facility] [phone] * CULTURE STOOL+ E COLI SHIGA-LIKE TOXIN (07/14/2015 1:43 PM CDT) Culture No growth Salmonella, Shigella, Campylobacter , E. coli 0157:h7 or Yersinia CARLOS EDUARDO 07/17/2015 7:33 AM CDT [facility] Culture Negative E. coli Shiga-like toxin (NM) CARLOS EDUARDO 07/17/2015 7:33 AM CDT [facility] Stool STOOL SPECIMEN / Unknown Collection / Unknown 07/14/2015 1:43 PM CDT 07/14/2015 3:56 PM CDT Chucho Hinton MD LAB - MICROBIOLOGY O RDERABLES [facility] [address] [place] [address], [facility] [phone] * CULTURE URINE (07/14/2015 7:21 AM CDT) Culture <10,000 CFU/mL urogenital adelso CARLOS EDUARDO 07/15/2015 12:57 PM CDT [facility] Urine URINE SPECIMEN OBTAINED BY CLEAN CATCH PROCEDURE / Unknown Collection / Unknown 07/14/2015 7:21 AM CDT 07/14/2015 7:52 AM CDT Bri Ugarte MD LAB - MICROBIOLOGY O RADHAERAPOPEYE Performing Organization Address [facility]/ZIP Co de Phone Number [facility] [address] [place] [address], [facility] [phone] * (ABNORMAL) URINALYSIS ROUTINE W/REFLEX TO CULTURE (07/14/2015 7:21 AM CDT) Color UA Yellow Straw, Yellow, Dark Yellow 07/14/2015 8:19 AM CDT [facility] Clarity UA Clear 07/14/2015 8:19 AM CDT [facility] Specific [place] UA 1.021 1.005 - 1.030 07/14/2015 8:19 AM CDT [facility] pH UA 6.0 5.0 - 8.0 pH 07/14/2015 8:19 AM CDT [facility] Protein UA Negative Negative 07/14/2015 8:19 AM CDT [facility] Blood UA 1+(A) Negative 07/14/2015 8:19 AM CDT [facility] Leukocyte UA 2+(A) Negative 07/14/2015 8:19 AM CDT [facility] Nitrite UA Negative Negative 07/14/2015 8:19 AM CDT [facility] Glucose UA Negative Negative 07/14/2015 8:19 AM CDT [facility] Ketone UA Negative Negative 07/14/2015 8:19 AM CDT [facility] Bilirubin UA Negative Negative 07/14/2015 8:19 AM CDT [facility] Urobilinogen UA 0.2 0.1 - 1.0 EU/dL 07/14/2015 8:19 AM CDT [facility] WBC UA Auto 5-10(A) 0-2, 2-5 # /hpf 07/14/2015 8:19 AM CDT [facility] RBC UA Auto 10-20(A) 0-2, 2-5 # /hpf 07/14/2015 8:19 AM CDT [facility] Epithelial Cell UA Auto 5-10(A) 0-2, 2-5 # /hpf 07/14/2015 8:19 AM CDT [facility] Bacteria UA Auto 1+(A) None seen 07/14/2015 8:19 AM CDT [facility] Hyaline Casts UA Auto 2-5(A) 0 - 2 #/lpf 07/14/2015 8:19 AM CDT [facility] Reflex Status Culture to follow 07/14/2015 8:19 AM CDT [facility] Urine URINE SPECIMEN OBTAINED BY CLEAN CATCH PROCEDURE / Unknown Collection / Unknown 07/14/2015 7:21 AM CDT 07/14/2015 7:52 AM CDT Bri Ugarte MD LAB - URINALYSIS ORD ERABLES [facility] [address] [place] [address] * (ABNORMAL) LIPASE BLOOD (07/13/2015 5:13 PM CDT) Lipase 411(H) 10 - 220 U/L 07/13/2015 5:33 PM CDT [facility] Blood BLOOD SPECIMEN / Unknown Venipuncture / Unknown 07/13/2015 5:13 PM CDT 07/13/2015 5:16 PM CDT Bri Ugarte MD LAB - CHEMISTRY ORDE RABLES [facility] [address], [place] [id number] * (ABNORMAL) COMPREHENSIVE METABOLIC PANEL (07/13/2015 5:13 PM CDT) [facility] Glucose 95 74 - 106 mg/dL 07/13/2015 5:33 PM CDT [facility] Sodium 136 136 - 145 mmol/L 07/13/2015 5:33 PM CDT [facility] Potassium 3.8 3.5 - 5.1 mmol/L 07/13/2015 5:33 PM CDT [facility] Chloride 107 98 - 107 mmol/L 07/13/2015 5:33 PM CDT [facility] CO2 20(L) 22 - 31 mmol/L 07/13/2015 5:33 PM CDT [facility] Calcium 9.7 8.5 - 10.1 mg/dL 07/13/2015 5:33 PM CDT [facility] Anion Gap 9 5 - 20 mmol/L 07/13/2015 5:33 PM CDT [facility] BUN 23(H) 7 - 21 mg/dL 07/13/2015 5:33 PM CDT [facility] Creatinine 0.94 0.50 - 1.30 mg/dL 07/13/2015 5:33 PM CDT [facility] Alkaline Phosphatase 94 38 - 126 U/L 07/13/2015 5:33 PM CDT [facility] ALT 35 12 - 78 U/L 07/13/2015 5:33 PM CDT [facility] AST 11 5 - 40 U/L 07/13/2015 5:33 PM CDT [facility] Protein Total 8.9(H) 6.4 - 8.2 gm/dL 07/13/2015 5:33 PM CDT [facility] Albumin 4.5 3.4 - 5.0 gm/dL 07/13/2015 5:33 PM CDT [facility] Bilirubin Total 0.7 0.2 - 1.0 mg/dL 07/13/2015 5:33 PM CDT [facility] eGFR by MDRD >60 >60 mL/min/1.7 3m2 07/13/2015 5:33 PM CDT [facility] eGFR by MDRD >60 >60 mL/min/1.7 3m2 07/13/2015 5:33 PM CDT [facility] Blood BLOOD SPECIMEN / Unknown Venipuncture / Unknown 07/13/2015 5:13 PM CDT 07/13/2015 5:16 PM CDT Bri Ugarte MD LAB - CHEMISTRY MORGAN YEE [facility] Organization Address City/State/ZIP Co de Phone Number [facility] [address] [place] [address] * (ABNORMAL) CBC W AUTO DIFFERENTIAL (07/13/2015 5:13 PM CDT) WBC 11.3(H) 4.4 - 10.7 x10^9/L 07/13/2015 5:19 PM CDT [facility] WBC Corrected x10^9/L 07/13/2015 5:19 PM CDT [facility] RBC 5.86(H) 3.80 - 5.20 x10^12/L 07/13/2015 5:19 PM CDT [facility] Hemoglobin 16.2(H) 12.0 - 15.6 gm/dL 07/13/2015 5:19 PM CDT [facility] Hematocrit 49.0(H) 35.9 - 45.5 % 07/13/2015 5:19 PM CDT [facility] MCV 83.6 80.7 - 98.3 fl 07/13/2015 5:19 PM CDT [facility] MCH 27.6 26.7 - 34.0 pg 07/13/2015 5:19 PM CDT [facility] MCHC 33.1 30.8 - 35.9 gm/dL 07/13/2015 5:19 PM CDT [facility] Platelet Count 375 153 - 416 x10^9/L 07/13/2015 5:19 PM CDT [facility] RDW-CV 14.5 12.1 - 14.9 % 07/13/2015 5:19 PM CDT [facility] MPV 8.6(L) 9.4 - 12.9 fl 07/13/2015 5:19 PM CDT [facility] Neutrophils % 67.4 44.0 - 73.0 % 07/13/2015 5:19 PM CDT [facility] Lymphocytes % 24.6 20.0 - 43.0 % 07/13/2015 5:19 PM CDT [facility] Monocytes % 6.3 5.0 - 13.0 % 07/13/2015 5:19 PM CDT [facility] Eosinophils % 0.5 0.0 - 6.0 % 07/13/2015 5:19 PM CDT [facility] Basophils % 0.8 0.0 - 2.0 % 07/13/2015 5:19 PM CDT [facility] Immature Granulocytes 0.4 0 - 1 % 07/13/2015 5:19 PM CDT [facility] Neutrophil Absolute 7.61(H) 2.01 - 7.14 x10^9/L 07/13/2015 5:19 PM CDT [facility] Lymphocytes Absolute 2.78 1.07 - 3.94 x10^9/L 07/13/2015 5:19 PM CDT [facility] Monocytes Absolute 0.71 0.26 - 1.07 x10^9/L 07/13/2015 5:19 PM CDT [facility] Eosinophils Absolute 0.06 0 - 0.47 x10^9/L 07/13/2015 5:19 PM CDT [facility] Basophils Absolute 0.09(H) 0 - 0.08 x10^9/L 07/13/2015 5:19 PM CDT [facility] Immature Granulocytes Absolute 0.05 0.00 - 0.06 x10^9/L 07/13/2015 5:19 PM CDT [facility] nRBC Auto 0 /100 WBC 07/13/2015 5:19 PM CDT [facility] Blood BLOOD SPECIMEN / Unknown Venipuncture / Unknown 07/13/2015 5:13 PM CDT 07/13/2015 5:16 PM CDT Bri Ugarte MD LAB - HEMATOLOGY ORD ERABLES [facility] Organization Address City/State/[facility] Co de Phone Number [facility] [address] [place] [address] documented in this encounter Visit Diagnoses Diagnosis Acute cystitis without hematuria- Primary Acute cystitis Intractable abdominal pain Abdominal pain, unspecified site Acute cystitis without hematuria Acute cystitis Diverticulitis of colon Diverticulitis of colon (without mention of hemorrhage) Diagnosis unknown Other unknown and unspecified cause of morbidity or mortality Diagnosis unknown Other unknown and unspecified cause of morbidity or mortality documented in this encounter Active and Recently [...] Oral, EVERY 12 HOURS, First dose on Sat07/16/15 at 1600, Until Discontinued, Take with or without food, do not take with mehdi, yogurt or calcium-fortified juice. DULoxetine (CYMBALTA) capsule 60 mg (CANCELED) 60 mg, Oral, DAILY, First dose on Leydi 07/14/15 at 1045, Until Discontinued 1156 ($ Given - Provider: Briana Sandhu RN) 0820 ($ Given - Provider: Laurel Flores RN) 0803 ($ Given - Provider: Laurel Flores RN) heparin injection 5,000 Units (CANCELED) 5,000 Units, Subcutaneous, EVERY 8 HOURS, First dose on Leydi 07/14/15 at 1400, Until Discontinued 1355 ($ Given - Provider: Briana Sandhu RN)2031 ($ Given - Provider: Elvia Remy RN) 0415 ($ Given - Provider: Elvia Remy, ANTHONY)1541 ($ Given - Provider: Laurel Flores, ANTHONY)2252 ($ Given - Provider: Alyse Schaefer) 0513 [...] RN) 0819 ($ Given - Provider: Laurel Flores, ANTHONY) pantoprazole EC (PROTONIX) tablet 40 mg 40 [...] Sat07/13/15 at 2245, Until 07/16/15 at 1554 0825 ($ New Bag/Syringe - Provider: Briana Sandhu RN)2149 ($ New Bag/Syringe - Provider: Elvia Remy RN) 0247 ($ New Bag/Syringe - Provider: Alyse Schaefer) 0.9% NaCl infusion (CANCELED) at 20 mL/hr, Intravenous, CONTINUOUS, Starting on Sat07/15/15 at 1400, Until Sat07/15/15 at 1520, Pre-procedure (GI) 1416 ($ New Bag/Syringe - Provider: Indira Jin APRN-HEEL ATTACHER)1429 (Anesthesia Volume Adjustment - Provider: RODRICK Mann) [...] RN)1543 ($ Given - Provider: Briana Sandhu RN)2031 ($ Given - Provider: Elvia Remy RN) 0248 ($ Given - Provider: Elvia Remy, RN)0820 ($ Given - Provider: Laurel Flores RN)1531 ($ Given - Provider: Laurel Flores RN)2041 ($ Given - Provider: Alyse Schaefer) 0244 [...] Sat07/13/15 at 2042, Until 07/16/15 at 1554 0303 ($ Given - Provider: Elvia Remy RN)1543 ($ Given - Provider: Briana Sandhu RN)2030 ($ Given - Provider: Elvia Remy RN) 0247 ($ Given - Provider: Elvia Remy RN)1107 ($ Given - Provider: Laurel Flores, ANTHONY)204 ($ Given - Provider: Alyse Schaefer) 0244 [...] RN)1107 ($ Given - Provider: Laurel Flores RN)1709 ($ Given - Provider: Laurel Flores RN)2252 ($ Given - Provider: Alyse Schaefer) 0405 ($ Given - Provider: Alsye Schaefer)0939 ($ Given - Provider: Brunilda Carson RN)1428 ($ Given - Provider: Laurel Flores, ANTHONY) SUMAtriptan (IMITREX) injection 6 mg (CANCELED) 6 mg, Subcutaneous, DAILY PRN, Migraine, Starting on Sat07/15/15 at 1154, Until 07/16/15 at 1554, MAX 6 mg/dose and 12 mg/24 hr 1531 ($ Given - Provider: Laurel Flores RN) documented in this encounter Care Teams Vessel Specialist Relationship Specialty Start Date End Date Jonathan Hartman RN Instructor Watch Assembly 07/14/15 documented as of this encounter
--- OUTSIDE RECORDS SUMMARY | 2024-04-29 19:21 | XMS_ITS | Encounter Summary ---
Author Organization [facility] Address [address] [place] [address] Phone Care Team Providers Care Spot Remover Name Role Phone Toi Fair DO Unavailable [phone] Amadeo Hernandez MD Unavailable Isaiah Quiros MD Primary Care Provider [phone] Reason for Visit * Reason Onset Date Comments Results 09/28/2020 Encounter Details Date Type Department Care Team (Late st Contact Info) Description 09/28/2020 Telephone [facility] - Gastroenterology [facility] [address] [place] [address] Toi Fair, DO [address] [address] Results Social History Tobacco Use Types Packs/Day Years Used Date Smoking Tobacco: Never Assessed Comments Unknown Sex and Gender Information Value Date Recorded Sex Assigned at Not on file 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 Per Dr. Fair report, patient is to repeat colonoscopy in 10 years. Letter sent to patient. Recall added to epic. documented in this encounter Plan of Treatment Not on file documented as of this encounter Visit Diagnoses Not on filedocumented in this encounter Care Teams Spot Remover Relationship Specialty Start Date End Date Isaiah Quiros MD [address], [address] [place] [address] PCP - General Internal Medicine 05/08/18 Toi Fair DO Gastroenterology 12/03/16 Amadeo Hernandez MD [address] [place] [address] 12/03/16 documented as of this encounter
--- OUTSIDE RECORDS SUMMARY | 2024-04-29 19:21 | XMS_ITS | Patient Health Record ---
Author Organization [facility] Address [address] [place] [address] Care Team Providers Care Upper Shaper Name Role Phone NADINE RUSH Unavailable [phone] Allergies No Known Allergies Reason For Referral Reason EVAL AND TREAT Diagnosis 1 Chronic pain syndrom e (G89.4) Referral Organization [facility] Referring Provider First Name TERESA Referring Provider Last Name KARL Referring Provider Speciality Physician Primary School Teacher Librarian Referred Provider Specialty Pain Medicin e Referral Priority Routine Referral Appointment Date 02/25/2024 Social History Tobacco Use: Social History Observation Description Date Details (start date - stop date) Former Smoker NA - NA Tobacco Control (Standard) Question Answer Notes Tobacco use: Former smoker Problems Problem Type SNOMED Code ICD Code Onset Dates Problem Status W/U Status Risk Notes Problem [id number] Chronic pain syndrome (G89.4) Active confirmed Vital Signs Height 66 in 02/25/2024 Patient Reported Normal Blood Pressure Patient Reported Normal Temperature Weight 200 lbs 02/25/2024 Patient Reported Normal Blood Pressure Patient Reported Normal Temperature BMI 32.28 kg/m2 02/25/2024 Patient Reported Normal Blood Pressure Patient Reported Normal Temperature Encounters Encounter Location Date Provider Diagnosis [facility] [address] [place] [address] 02/25/2024 NADINE RUSH Chronic pain syndrom e G89.4 Assessments Encounter [...] Agree with referral to Pain Medicine. Nadine Rush, DO 02/25/2024 Other Follow the treatment plan [...] with the follow-up plan. Plan Of Treatment No Information Insurance Providers Payer Name Payer Address Payer Phone Subscriber Number Group Number Insured Name Patient Relationship to Insured Coverage Start Date Coverage End Date [facility] [address] [place] [address] [phone] [id number] Madalyn Smith Self - patient is the insured Medical (General) History Medical History History ICD Code Meredith Camilla 05/[birth year]/1990 Obesity
--- OUTSIDE RECORDS SUMMARY | 2024-04-29 19:21 | XMS_ITS | Encounter Summary ---
Author Organization [facility] Address [address] [place] [address] Phone Care Team Providers Care Churn Tender Name Role Phone Manjula Toi Romero DO Unavailable [phone] Amadeo Hernandez MD Unavailable Isaiah Quiros MD Primary Care Provider [phone] Reason for Visit * Reason Onset Date Comments Abdominal Pain 09/28/2020 Encounter Details Date Type Department Care Team (Late st Contact Info) Description 09/28/2020 Nurse Triage [facility] - Gastroenterology [facility] [address] [place] [address] Toi Fair, DO [address] [address] Abdominal Pain Social History Tobacco Use Types Packs/Day Years Used Date Smoking Tobacco: Never Assessed Comments Unknown Sex and Gender Information Value Date Recorded Sex Assigned at Not on file 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 Called patient back. Patient reports that she had a colonoscopy at [facility] on 09/22/2020. Patient started having right side lower abdominal pain on 09/27/2020. Having diarrhea, approx 3 stools. Denies any bloody, black or tarry stools. Patient is to go to ER. Patient advised to go to ER. Patient is aware and verbalizes understanding. BACKGROUND: Right lower abdomen pain started on 09/28/2020 ASSESSMENT: Symptom Description / Location: right lower abdominal pain, nausea, Pain (0-10): 4 pinching, cramping and constant, pressure, dull Temp: denies Treatment / Response: zofran LMP / / : Having periods, premenopausal. RECOMMENDATION: See care advice and disposition for Guideline First positive answer recorded, all responses to prior questions were negative. If symptoms increase, change or if new symptoms develop, call your HCP or call back. Recommendations were based on caller information and is not a diagnosis. Verified and reviewed all triage information with caller. Reason for Disposition ? ? Constant abdominal pain lasting > 2 hours Protocols used: ABDOMINAL PAIN - FEMALE-A-OH documented in this encounter Plan of Treatment Not on file documented as of this encounter Visit Diagnoses Not on filedocumented in this encounter Care Teams Churn Tender Relationship Specialty Start Date End Date Isaiah Quiros MD [address], [address] [place] [address] PCP - General Internal Medicine 05/08/18 Toi Fair DO Gastroenterology 12/03/16 Amadeo Hernandez MD [address] [place] [address] 12/03/16 documented as of this encounter
--- OUTSIDE RECORDS SUMMARY | 2024-04-29 19:21 | XMS_ITS | Encounter Summary ---
Author Organization [facility] Address [address] [place] [address] Care Team Providers Care Qa Specialist Name Role Phone Jonathan Hartman RN Unavailable [phone] Reason for Visit * Auth/Cert Specialty Diagnoses / Procedures Referred By Kaylynn phillips Referred To Contact Diagnoses Intractable abdominal pain Referral ID Status Reason Start Date Expiration Date Visits Re quested Visits Authorized [id number] 1 1 Encounter Details Date Type Department Care Team (Late st Contact Info) Description 07/15/2015 2:16 PM CDT Anesthesia Event [facility] - Endoscopy Services [address] [place] [id number] Jonathan Costa DO [address] [facility] [place] [address] Chas Tran MD [address] [facility] [place] [address] Anesthesia Record Procedure Summary Procedure Name Responsible Anesthesiologist Anesthesia Start Time Anesthesia Stop Time ESOPHAGOGASTRODUODENOSCOPY (EGD) Jonathan Costa DO 0 07/15/15 1416 07/15/15 1430 Events Date Time Event Comment 07/15/2015 1416 An Start 1416 An Start Data 1418 PT Reassessment Patient and Vital Signs reassessed prior to induction. 1430 Elect Sign The providers l isted as staff are the responsible providers for the case. 1430 an stop data 1430 An Stop 1430 Handoff Handoff include d discussion of Intraoperative anesthetic management, issues, concerns and expectations/plans for the early post-procedure period. There was an opportunity for questions and the receiving team acknowledged understanding of the handoff. Meds Name Total lidocaine (XYLOCAINE) 2% injection (20 m g/ml) 40 mg fentaNYL (SUBLIMAZE) 0.05 mg/ml injectio n 100 mcg propofol (DIPRIVAN) injection 10mg/ml (E NDO USE) 18 mL 0.9% NaCl infusion 100 mL * Agents Name O2 * Blood No blood administrations on file. Lines, Drains, and Airways Type Details Placement Removal Peripheral IV Date: 07/13/15; Time : 1711; Orientation: Left; Placed By: Aishwarya Fisher Gill Net; Tolerance: Well 07/13/151711 by Femi Neff 07/16/15 1453 by Laurel Garza APRN-PATIENT DAY COORDINATOR documented in this encounter Social History Tobacco [...] No 07/13/2015 documented as of this encounter Progress Notes * Indira Jin APRN-CRNA - 07/15/2015 2:34 PM CDT ANESTHESIA POSTPROCEDURE EVALUATION Madalyn Walton is a 40 y.o. female Temp: 36.7 ??C Pulse: 69 Resp: 20 BP: 128/78 mmHg SpO2: 100 % Anesthesia Type: MAC Mental status: sufficiently recovered from acute administration of anesthesia to participate in theevaluation. Level of consciousness: awake No numbness, tingling or visual disturbances present. General appearance: in no acute distress Respiratory function: natural airway. Cardiac: stable Pain: comfortable/acceptable PONV: None Postop hydration: adequate. Patient may be released from anesthesia care. Perioperative Complications: No value filed. ASA/AQI Tracking Events: No value filed. documented in this encounter Consult Notes * Chas Tran MD - 07/14/2015 5:19 PM CDT Pre-anesthesia Evaluation Procedure(s): ESOPHAGOGASTRODUODENOSCOPY (EGD) (N/A ) Diagnosis: Intractable abdominal pain [R10.9];Diagnosis unknown [R69] Vital Signs: Temp: 37 ??C (07/13 162) Pulse: 77 (07/13 162) Resp: 18 (07/13 162) BP: 110/75 mmHg (07/13 162) SpO2: 97 % (07/13 1621) BMI: Estimated body mass index is 28.74 kg/(m^2) as calculated from the following: Height as of this encounter: 5' 6 (1.676 m). Weight as of this encounter: 178 lb (80.74 kg). History: Past Medical History Diagnosis Date ??? Diverticulitis ??? Migraine Past Surgical History Procedure Laterality Date ??? Acl reconstruction Bilateral ??? Endoscopy, colon, diagnostic ??? Tonsillectomy reports that she has quit smoking. She [...] Take 60 mg by mouth once daily Inpatient Medications: Current Facility-Administered Medications Medication Dose Route Frequency Provider Last Rate Last Dose ??? oxyCODONE-acetaminophen (PERCOCET) 5-325 MG tablet 1 Tab 1 Tab Oral q4h PRN Chucho Hinton MD 1 Tab at 07/14/15 1355 ??? HYDROmorphone (DILAUDID) injection 0.2 mg 0.2 mg Intravenous q4h PRN Chucho Hinton MD 0.2 mg at 07/14/15 1543 ??? DULoxetine (CYMBALTA) capsule 60 mg 60 [...] q12h Chucho Hinton MD 400 mg at 07/14/15 1543 ??? pantoprazole (PROTONIX) injection 40 mg 40 mg Intravenous QDAY Chucho Hinton MD 40 mg at 07/14/15 1355 ??? 0.9% NaCl injection 1-10 mL 1-10 mL Intracatheter PRN Bri Ugarte MD ??? ondansetron (ZOFRAN) injection 4 mg 4 mg Intravenous q6h PRN Bri Ugarte MD 4 mg at 07/14/15 1543 ??? 0.9% NaCl infusion Intravenous Continuous Bri Ugarte MD 100 mL/hr at 07/14/15 0825 ??? acetaminophen (TYLENOL) tablet 650 mg 650 mg Oral q4h PRN Bri Ugarte MD Physical Exam: NPO status: no solids since midnight Oriented to person, place and time Airway: II Neck ROM: full Dental exam findings: normal/ok Pulmonary exam: breath sounds CTA Heart sounds: S1 S2 Review of Systems: Plan for Anesthesia: MAC--Will order Hcg ASA Score: 2. Anesthesia plan: MAC Planned [...] 1400, Until Sat07/15/15 at 1520, Pre-procedure (GI) $ New Bag/Syringe 07/15/2015 2:16 PM CDT fentaNYL (SUBLIMAZE) injection PRN, Starting on Sat07/15/15 at 1421, Until Sat07/15/15 at 1430, Anesthesia Intra-op $ Given 07/15/2015 2:21 PM CDT 100 mcg lidocaine (XYLOCAINE) 2 % injection PRN, Starting on Sat07/15/15 at 1421, Until Sat07/15/15 at 1430, Anesthesia Intra-op $ Given 07/15/2015 2:21 PM CDT 40 mg propofol (DIPRIVAN) injection CONTINUOUS PRN, Starting on Sat07/15/15 at 1421, Until Sat07/15/15 at 1430, Anesthesia Intra-op $ New Bag/Syringe 07/15/2015 2:21 PM CDT documented in this encounter Care Teams Qa Specialist Relationship Specialty Start Date End Date Jonathan Hartman RN Senior Product Development Scientist 07/14/15 documented as of this encounter
--- OUTSIDE RECORDS SUMMARY | 2024-04-29 19:21 | XMS_ITS | Encounter Summary ---
Author Organization [facility] Address [address] [place] [address] Care Team Providers Care Adobe Architect Name Role Phone Isaiah Quiros MD Primary Care Provider [phone] Reason for Visit * Reason Onset Date Comments Medication Refill Medication Refill 10/26/2019 Encounter Details Date Type Department Care Team (Late st Contact Info) Description 10/22/2019 Refill [facility] Gastroenterology [place] [address] [facility] [address] [place] [address] Alex Mahajan MD [address] [facility] [address] [place] [address] 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 syndrome with both constipation and diarrhea Social History Tobacco Use Types Packs/Day [...] encounter Miscellaneous Notes * Telephone Encounter - Earnestine uF LPN - 10/26/2019 7:29 AM CDT Need to verify if taking linzess or amitiza documented in this encounter Plan of Treatment Not on file documented as of this encounter Visit Diagnoses Diagnosis 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 syndrome with both constipation and diarrhea documented in this encounter Care Teams Adobe Architect Relationship Specialty Start Date End Date Isaiah Quiros MD [address] [place] [id number] PCP - General Internal Medicine 04/16/18 documented as of this encounter
--- OUTSIDE RECORDS SUMMARY | 2024-04-29 19:21 | XMS_ITS | Encounter Summary ---
Author Organization [facility] Address [address] [place] [address] Care Team Providers Care Customer Management Specialist Name Role Phone Isaiah Quiros MD Primary Care Provider [phone] Reason for Referral * MRI (Routine) - Closed Specialty Diagnoses / Procedures Referred By Contac t Referred To Contact MRI Diagnoses Elevated amylase and lipase Epigastric abdominal pain Procedures MRI MRCP W AND WO CONTRAST Alex Mahajan MD [address] [address] Referral ID Status Reason Start Date Expiration Date V isits Requested Visits Authorized [id number] Closed [facility] CTS 08/06/2018 09/05/2018 1 1 Reason for Visit * MRI (Routine) - Closed Specialty Diagnoses / Procedures Referred By Contac jacqueline Referred To Contact MRI Diagnoses Elevated amylase and lipase Epigastric abdominal pain Procedures MRI MRCP W AND WO CONTRAST Alex Mahajan MD [address] [address] Referral ID Status Reason Start Date Expiration Date V isits Requested Visits Authorized [id number] Closed [facility] CTS 08/06/2018 09/05/2018 1 1 Encounter Details Date Type Department Care Team (Latest Contact Info) Description 08/07/2018 6:52 AM CDT - 08/07/2018 11:59 PM CDT Hospital Encounter [facility] MRI S [facility] [address] [facility] [place] [address] Alex Mahajan MD [address] [facility] [address] [place] [address] Discharge Disposition: Home or Self Care Social History Tobacco Use Types Packs/Day Years Used Date Smoking Tobacco: Every Day E-Cigarette/M ist Inhalation Device Alcohol Use Standard Drinks/Week Comments Yes 0 (1 standard drink = 0.6 oz pur e alcohol) Sex and Gender Information Value Date Recorded Sex Assigned at Not on file Gender Identity Not on file Sexual Orientation Not on file documented as of this encounter Medications at Time of Discharge Medication Sig Dispensed Refills Start Date End Date etanercept (ENBREL) 25 mg (1 mL) Recon Soln Inject 25 mg by subcutaneous injection one time only. DULoxetine (CYMBALTA) 60 mg Capsule, Delayed Release(E.C.) Take 60 mg by mouth daily. buPROPion HCl (WELLBUTRIN XL) 300 mg Extended Release 24 hour tablet Take 300 mg by mouth daily crosstie inspector. pregabalin (LYRICA) 100 mg Capsule Take 100 mg by mouth. topiramate (TROKENDI XR) 200 mg Extended Release 24 hour capsuleIndications:Mi graine headache Take 100 mg by mouth 2 times daily. ondansetron (ZOFRAN ODT) 4 mg Tablet, Rapid DissolveIndications:M igraine headache Place 1 Tab under tongue every 8 hours as needed for Nausea/Emesis. 15 Tab 0 11/16/2013 dicyclomine (BENTYL) 10 mg capsuleIndications:In termittent generalized abdominal pain Take 1 Capsule (10 mg) by mouth every 6 hours as needed (abdominal pain). 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 30 Capsule 6 07/23/2018 12/27/2018 raNITIdine (ZANTAC) 150 mg tablet Take 150 mg by mouth 2 times daily. 12/29/2018 pantoprazole (PROTONIX) 40 mg Tablet, Delayed Release (E.C.) Take 1 Tablet (40 mg) by mouth daily Take 30 minutes before breakfast. 30 Tablet 6 04/16/2018 08/22/2018 documented as of this encounter Miscellaneous Notes * Result Encounter Note - Alex Mahajan MD - 08/18/2018 6:42 PM CDT I called the patient and discussed about her MRI/MRCP results in detail. Patient verbalized understanding. * Treatment Plan - Jose Cruz Aguilar, RT - 08/07/2018 7:56 AM CDT IMAGING SERVICES- CT, MRI MEDICATION and FLUSH PROTOCOL [facility] ORDERS ARE ENTERED ???PER PROTOCOL?? Enter the protocol in the patient???s electronic health record using RRsatrase: .imagingctmriprotocol Communication Orders: o For ordered imaging procedures requiring intravenous access : ??? Initiate a peripheral IV, if not already in place, and discontinue IV prior to discharge (if outpatient). ??? Enter order if needed: Insert Peripheral IV Medication Orders: o Local Anesthetic for use to initiate IV ADULT ??? Lidocaine 4% (L.M.X.4) applied topically ONE TIME prior to IV catheter insertion PRN (L.M.X.4 %should be applied 15 minutes prior to procedure) PEDIATRIC ??? Lidocaine 4% (L.M.X.4) applied topically ONE TIME prior to IV catheter insertion PRN (apply 15 minutes prior to procedure) ??? Sucrose 24%(Tootsweet; Sweet-Ease) oral solution 0.2 mL oral (apply to tongue on pacifier or clean, gloved finger), ONE TIME 2 minutes prior to painful procedure. May repeat dose x1 PRN to complete procedure. o Sodium chloride 0.9% (normal saline) flush 10 mLs PRN for saline lock or medication administration. o For respiratory distress, initiate oxygen and/or increase O2 to maintain saturation greater than 90% PROCEDURE SPECIFIC MEDICATIONS ??? Cystogram (CT Pelvis): Iopamidol (Isovue 300) 61%, 50mL, diluted with 250mL of sterile NS. Inject Isovue into 250mL bag ofNS.. Clamp dsouza catheter prior to instilling solution via catheter. o Instill up to 300mL of Isovue and NS solution into bladder via catheter, one time. CT ORAL CONTRAST PROTOCOLS FOR ADULTS ??? Use Iohexol (Omnipaque) 240 mg/mL for CT scan unless patient has a documented allergy to contrast dye. ??? If allergy present, use Barium Sulfate (EZ Paque) for procedure. ??? If at any time the Tip Bander has a question about which option to administer, seek clarification from a Radiologist. o Iohexol (Omnipaque) 240 mg/mL: 50ml added to 960mL of clear liquid of patient???s choice. Preferred route is oral. May use nasoenteric tube if needed. ??? Administer 900mL of the diluted Omnipaque 240, orally, one time only. o Barium Sulfate (EZ Paque /Vanilla Silq) 96% oral suspension: Preferred route is oral. May use nasoenteric tube if needed. ??? Administer 900mL of barium sulfate, orally, one time only. CT ORAL CONTRAST PROTOCOLS FOR PEDIATRICS Pediatrics = up to age 18 o Pediatric Radiologist will approve of one of the following products selected for procedure. ??? Barium Sulfate (EZ Paque) 96% oral suspension: preferred route is oral. May use nasoenteric tube if needed. [place] to 3 months Administer up to 90mL of Barium Sulfate, orally, one time only 4 months to 1 year old Administer up to 240mL of Barium sulfate , Orally, One Time Only 1 year old to 5 years old Administer up to 360mL of Barium sulfate , Orally, One Time Only 5 years old to 10 years old Administer up to 480mL of Barium sulfate , Orally, One Time Only Over 10 years old Administer up to 600mL of Barium sulfate , Orally, One Time Only ??? Iohexol (Omnipaque) 240 mg/mL oral solution ??? Dilute 25mL of iohexol with 480mL of clear liquid of patient???s choice. Administer the dilutedsolution per age as follows: Preferred route is orally. May use nasoenteric tube if needed. ??? Send any remaining diluted Iohexol solution with the pateint???s nurse to CT Administer 45mL of diluted Iohexol oral solution, orally every 30 minutes x 2 doses. 1 month to 1 year old Administer 120mL of diluted Iohexol oral solution, orally every 30 min x 2 doses. 1 year old to 5 years old Administer 180mL of Iohexol orally every 30 min x 2 doses. 5 years old to 10 years old Administer 240mL of Iohexol orally every 30 min x 2 doses. Over 10 years old Administer 300mL of Iohexol orally every 30 min x [address] RECTAL CONTRAST PROTOCOLS ADULTS: o Iohexol (Omnipaque) 240 mg/mL: Dilute 50mL of Omnipaque with 900mL of warm water in an enema bag.Administer the diluted solution rectally via gravity per patient???s tolerance, up to 950mLs, one time only. CT IV CONTRAST PROTOCOLS for ADULT ADULTS: (If patient is less than 55kg and confirm dose with radiologist) o Iopadmidol (Isovue-300): Administer 2.2mL/kg of Iopamidol 61%, intravenously, one time only. o See table below for maximum dose, unless otherwise authorized by radiologist.If exam has been completed before the entire dose has been administered, stop the injection. o If exam not included in table below, contact radiologist for orders. Procedure Maximum Dose CT Head with Contrast Up to [address] Chest with Contrast Up to [address] Maxilofacial with Contrast Up to [address] Soft Tissue Neck with Contrast CT Chest Abdomen Pelvis with Contrast CT Chest Abdomen with Contrast CT Abdomen Pelvis with Contrast CT Pelvis with Contrast CT Angiogram Examinations (all) CT Soft Tissue Neck and Chest Abomen Pelvis with Contrast Up to [address] Soft Tissue Neck and Chest with Contrast CT Urogram with Contrast CT IV CONTRAST PROTOCOLS for PEDIATRICS PEDIATRICS: Use weight based dosing if patient is less than 55kg and confirm dose with radiologist. to 15 years old Administer 2.2mL/kg (to MAX of 80 mL) of Iopamidol (Isovue-300) 61%, intravenously, one time only 15 years old and older Administer 2.2mL/kg (to MAX of 150mL) of Iopamidol (Isovue-300) 61%, intravenously, one time only MRI IV CONTRAST PROTOCOLS ADULTS: o Multihance and Prohance can be used for most MRI scans o For Liver studies, contact Radiologist to determine use of one of the following: o Gadobenate Dimeglumine (Multihance) (0.1mmol/0.2mL), Administer 0.1mmol/kg = 0.2mL/kg up to MAX of 30mL, intravenously, one time only o Gadoteridol (Prohance) (0.1mmol/0.2mL), Administer 0.1mmol/kg = 0.2mL/kg up to MAX of 30mL, intravenously, one time only o Gadoxetate (Eovist) 2.5 mmol/10mL, Administer 0.025mmol/kg = 0.1mL/kg MAX of 15mL, intravenously,one time only PEDIATRICS: o Radiologist to determine need and type of contrast Term neonates up to 2 years: Gadobutrol (Gadavist) 1mmol/mL injection, Administer 0.1mmol/kg = 0.1mL/kg up to MAX of 14mmol = 14mL, intravenously, one time only 2 years and older Gadobenate Dimeglumine (Multihance) (0.1mmol/0.2mL),Administer 0.1mmol/kg = 0.2mL/kg up to MAX of 20mL intravenously, one time only OR Gadoteridol (Prohance) (0.1mmol/0.2mL), Administer 0.1mmol/kg = 0.2mL/kg up to MAX of 20mL, intravenously, one time only Initiati Initi Initiating Department(s): 04/2013 Nuclear Medicine and Pharmacy Reviewed: 01/2014 ,08/2015, 08/2016; 11/2016; 04/2017; 08/2017; 11/2017 Revised: 01/2014, 05/2016, 08/2016; 11/2016; 04/2017; 08/2017; 11/2017 Approved by: Medical Executive Committee, Imaging Services, and Pharmacy & Therapeutics Committee Date: 12/2017 * Treatment Plan - Jose Cruz Aguilar RT - 08/07/2018 7:56 AM CDT Discharge instructions given to patient after MRI completed. documented in this encounter Plan of Treatment Not on file documented as of this encounter Procedures Procedure Name Priority Date/Time Associated Diagnosis Comments MRI MRCP W AND WO CONTRAST Routine 08/07/2018 8:09 AM CDT Elevated amylase and lipase Epigastric abdominal pain EDUCATION MAGNETIC RESONANCE IMAGING (MRI) - [facility] Routine 08/05/2018 2:28 PM CDT documented in this encounter Results * MRI MRCP W AND WO CONTRAST (08/07/2018 8:09 AM CDT) Anatomical Region Laterality Modality Abdomen Magnetic Resonan ce 08/07/2018 8:09 AM CDT Impressions 08/07/2018 11:59 AM CDT IMPRESSION: Scattered cavernous hemangiomas and cysts within the liver of no clinical significance. No acute intra-abdominal abnormality identified. DICTATION LOCATION: Location [address] [place] [address] 08/07/2018 11:59 AM CDT EXAMINATION: MRI MRCP WITH AND WITHOUT CONTRAST. DATE: ??08/07/2018 8:09 AM HISTORY: abdominal pain, elevated amylase and lipase, CT scan has been noncontributory. Elevated amylase and lipase; Epigastric abdominal pain COMPARISON: None TECHNIQUE: ??Standard MRI images of the abdomen were obtained prior to and following IV gadolinium. FINDINGS: Within the inferior anterior right hepatic lobe, there are separate 1.0 and 0.9 cm T2 hyperintense nodules which demonstrate peripheral puddling and centripetal enhancement following IV gadolinium. The appearance is compatible with benign cavernous hemangiomas of no clinical significance. Smaller scattered noncontrast enhancing 3-5 mm cysts are present within the right hepatic lobe Within the left kidney, there is a noncontrast enhancing 1.4 cm simple renal cyst. Gallbladder is unremarkable. MRCP images demonstrate normal caliber biliary tree and pancreatic duct. Pancreas is unremarkable. There is no evidence of pancreatic inflammation or mass. Procedure Note Mark Anthony Steiner MD - 08/07/2018 EXAMINATION: MRI MRCP WITH AND WITHOUT CONTRAST. DATE: 08/07/2018 8:09 AM HISTORY: abdominal pain, elevated amylase and lipase, CT scan has been noncontributory. Elevated amylase and lipase; Epigastric abdominal pain COMPARISON: None TECHNIQUE: Standard MRI images of the abdomen were obtained prior to and following IV gadolinium. FINDINGS: Within the inferior anterior right hepatic lobe, there are separate 1.0 and 0.9 cm T2 hyperintense nodules which demonstrate peripheral puddling and centripetal enhancement following IV gadolinium. The appearance is compatible with benign cavernous hemangiomas of no clinical significance. Smaller scattered noncontrast enhancing 3-5 mm cysts are present within the right hepatic lobe Within the left kidney, there is a noncontrast enhancing 1.4 cm simple renal cyst. Gallbladder is unremarkable. MRCP images demonstrate normal caliber biliary tree and pancreatic duct. Pancreas is unremarkable. There is no evidence of pancreatic inflammation or mass. IMPRESSION: Scattered cavernous hemangiomas and cysts within the liver of no clinical significance. No acute intra-abdominal abnormality identified. DICTATION LOCATION: Location 1 - [facility] Alex Mahajan MD MR ORDERABLES * EDUCATION MAGNETIC RESONANCE IMAGING (MRI) - [facility] (08/05/2018 2:28 PM CDT) Education Name MAGNETIC RESONANCE IMAGING (MRI) [facility] EDUCATION INTERFACE Education URL [email or web address] [facility] EDUCATION INTERFACE EDUCATION ACCESS CODE [id number] [facility] EDUCATION INTERFACE EDUCATION ISSUE DATE Aug 05, 2018 [facility] EDUCATION INTERFACE EDUCATION START DATE [facility] EDUCATION INTERFACE EDUCATION COMPLETED DATE This program was not started and flagged as on: Aug 08, 2018 [facility] EDUCATION INTERFACE EDUCATION EXPIRATION DATE Aug 07, 2018 [facility] EDUCATION INTERFACE EDUCATION MESSAGE EVENT [facility] EDUCATION INTERFACE 08/05/2018 2:28 PM CDT Alex Mahajan MD EXTERNAL EDUCATI ON ORDERABLES [facility] EDUCATION INTERFACE documented in this encounter Visit Diagnoses Diagnosis Elevated amylase and lipase Other nonspecific abnormal serum enzyme levels Epigastric abdominal pain Abdominal pain, epigastric documented in this encounter Administered Medications Inactive Administered Medications - up to 3 most recent administrations Medication Order MAR Action Action Date Dose Rate Site gadobenate dimeglumine (MULTIHANCE) 529 mg/mL (0.1mmol/0.2mL) injection 20 mL 20 mL, IV, INTRA-PROCEDURE ONCE, 1 dose, Starting on Leydi 08/07/18 at 0755, Until Sat08/07/18 at 0802, Routine Contrast Given 08/07/2018 8:02 AM CDT 18 mL sodium chloride 0.9% infusion 50 mL IV, at 50 mL/hr, INTRA-PROCEDURE ONCE, 1 dose, Starting on Leydi 08/07/18 at 0756, Until Leydi 08/07/18 at 0700, Routine New Bag 08/07/2018 7:00 AM CDT 25 mL 50 mL/ hr sodium chloride flush injection 10 mL 10 mL, IV, ONE TIME ONLY, 1 dose, On Leydi 08/07/18 at 0800, Routine Given 08/07/2018 8:00 AM CDT 10 mL documented in this encounter Care Teams Customer Management Specialist Relationship Specialty Start Date End Date Isaiah Quiros MD [address] [place] [id number] PCP - General Internal Medicine 04/16/18 documented as of this encounter
--- OUTSIDE RECORDS SUMMARY | 2024-04-29 19:21 | XMS_ITS | Encounter Summary ---
Author Organization [facility] Address [address] [place] [address] Care Team Providers Care Hydrometer Finisher Name Role Phone Isaiah Quiros MD Primary Care Provider [phone] Reason for Visit * Reason Comments Medication Refill Encounter Details Date Type Department Care Team (Late st Contact Info) Description 12/12/2018 Refill [facility] Gastroenterology [place] A [address] [facility] [address] [place] [address] Alex Mahajan MD [address] [facility] [address] [place] [address] Social History Tobacco Use Types [...] on filedocumented in this encounter Care Teams Hydrometer Finisher Relationship Specialty Start Date End Date Isaiah Quiros MD [address] [place] [address] PCP - General Internal Medicine 04/16/18 documented as of this encounter
--- OUTSIDE RECORDS SUMMARY | 2024-04-29 19:21 | XMS_ITS | Encounter Summary ---
Author Organization [facility] Address [address] [place] [address] Care Team Providers Care Field Pipe Lines Supervisor Name Role Phone Isaiah Quiros MD Primary Care Provider [phone] Reason for Visit * Reason Comments Medication Refill Encounter Details Date Type Department Care Team (Late st Contact Info) Description 09/08/2018 Refill [facility] Gastroenterology [place] A [address] [facility] [address] [place] [address] Alex Mahajan MD [address] [facility] [address] [place] [address] Intermittent generalized abdominal pain Social [...] pain documented in this encounter Care Teams Field Pipe Lines Supervisor Relationship Specialty Start Date End Date Isaiah Quiros MD [address] [place] [address] PCP - General Internal Medicine 04/16/18 documented as of this encounter
--- OUTSIDE RECORDS SUMMARY | 2024-04-29 19:21 | XMS_ITS | Encounter Summary ---
Author Organization [facility] Address [address] [place] [address] Care Team Providers Care Skein Inspector Name Role Phone Isaiah Quiros MD Primary Care Provider [phone] Reason for Visit * Reason Onset Date Comments Medication Refill Medication Refill 05/15/2019 Encounter Details Date Type Department Care Team (Late st Contact Info) Description 11/25/2018 Refill [facility] Gastroenterology [place] A [address] [facility] [address] [place] [address] Alex Mahajan MD [address] [facility] [address] [place] [address] Intermittent generalized abdominal pain Social [...] pain documented in this encounter Care Teams Skein Inspector Relationship Specialty Start Date End Date Isaiah Quiros MD [address] [place] [phone] PCP - General Internal Medicine 04/16/18 documented as of this encounter
--- OUTSIDE RECORDS SUMMARY | 2024-04-29 19:21 | XMS_ITS | Encounter Summary ---
Author Organization [facility] Address [address] [place] [address] Care Team Providers Care Faculty Head Name Role Phone Isaiah Quiros MD Primary Care Provider [phone] Reason for Visit * Reason Onset Date Comments Abdominal Pain 12/26/2018 Encounter Details Date Type Department Care Team (Late st Contact Info) Description 12/26/2018 Telephone [facility] Gastroenterology [place] A [address] [facility] [address] [place] [address] Alex Mahajan MD [address] [facility] [address] [place] [address] Abdominal Pain Social History Tobacco Use Types [...] encounter Miscellaneous Notes * Telephone Encounter - Debbie Weinberg - 12/26/2018 10:33 AM CDT Patient called with complaints of ab pain and low RBC lab, and brown/black stool. She is having records sent to us (seen at hospital in [place]). She was seen 08/02 for same issues and had test on 08/07. Keyshawn reviewed results and has f/u 01/07. She has follow up on 01/07. documented in this encounter Plan of Treatment Not on file documented as of this encounter Visit Diagnoses Not on filedocumented in this encounter Care Teams Faculty Head Relationship Specialty Start Date End Date Isaiah Quiros MD [address] [place] [phone] PCP - General Internal Medicine 04/16/18 documented as of this encounter
--- OUTSIDE RECORDS SUMMARY | 2024-04-29 19:21 | XMS_ITS | Encounter Summary ---
Author Organization [facility] Address [address] [place] [address] Care Team Providers Care Chair And Couch Maker Name Role Phone Unavailable Primary Care Provider Unavailabl e Encounter Details Date Type Department Care Team (Latest Contact Info) Description 06/29/2015 1:05 PM MD PEDIATRIC ALLERGIST - 06/29/2015 11:59 PM MD PEDIATRIC ALLERGIST Hospital Encounter [facility] [address] [facility] [address] [place] [address] Miriam Frye PA [address] [facility] Juan Jose [address] [facility] [address] Discharge Disposition: Home or Self Care Social History Tobacco Use Types Packs/Day Years Used Date Smoking Tobacco: Never Assessed Sex and Gender Information Value Date Recorded Sex Assigned at Not on file Gender Identity Female 01/29/2017 1:09 PM CDT Sexual Orientation Not on file documented as of this encounter Plan of Treatment Not on file documented as of this encounter Procedures Procedure Name Priority Date/Time Associated Diagnosis Comments XR HAND BILAT 2VW Routine 06/29/2015 1:1 8 PM MD PEDIATRIC ALLERGIST Pain in joint, pain in unspecified joint documented in this encounter Results * XR HANDS BILATERAL 2 VIEWS (06/29/2015 1:18 PM MD PEDIATRIC ALLERGIST) Anatomical Region Laterality Modality Wrist / Hand, Upper Extremity Ra diographic Imaging 06/29/2015 7:37 PM MD PEDIATRIC ALLERGIST Impressions 06/29/2015 7:38 PM MD PEDIATRIC ALLERGIST Normal radiographs of both hands. Narrative 06/29/2015 7:38 PM MD PEDIATRIC ALLERGIST BILATERAL HANDS, TWO VIEWS OF EACH HISTORY: Pain. COMPARISON: None. FINDINGS: Alignment of both hands is normal. ??The joint spaces are normal bilaterally. ??There is no fracture. Procedure Note Pati Fernandez MD - 06/29/2015 BILATERAL HANDS, TWO VIEWS OF EACH HISTORY: Pain. COMPARISON: None. FINDINGS: Alignment of both hands is normal. The joint spaces are normal bilaterally. There is no fracture. IMPRESSION Normal radiographs of both hands. [facility] ORDERABLES documented in this encounter Visit Diagnoses Diagnosis Pain in joint, pain in unspecified joint documented in this encounter
--- OUTSIDE RECORDS SUMMARY | 2024-04-29 19:21 | XMS_ITS | Encounter Summary ---
Author Organization [facility] Address [address] [place] [address] Phone Care Team Providers Care Radiology Technologist Name Role Phone Toi Fair DO Unavailable [phone] Amadeo Hernandez MD Unavailable Isaiah Quiros MD Primary Care Provider [phone] Encounter Details Date Type Department Care Team (Late st Contact Info) Description 11/11/2020 Telephone [facility] - Gastroenterology - [place] [address] [place] [phone] Kalani Flannery Sofia, [facility] [address] [place] [address] Social History Tobacco Use Types Packs/Day Years Used Date Smoking Tobacco: Never Assessed Comments Unknown Sex and Gender Information Value Date Recorded Sex Assigned at Not on file Legal Sex 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 The results of that came back showing she had both strep and staff in her urine and the urologist is thinking that is where the pain is coming from. She canceled her appointment for now and will call back and reschedule if needed. documented in this encounter Plan of Treatment Not on file documented as of this encounter Visit Diagnoses Not on filedocumented in this encounter Care Teams Radiology Technologist Relationship Specialty Start Date End Date Isaiah Quiros MD [address], [address] [place] [address] PCP - General Internal Medicine 05/08/18 Toi Fair DO Gastroenterology 12/03/16 Amadeo Hernandez MD [address] [place] [address] 12/03/16 documented as of this encounter
--- OUTSIDE RECORDS SUMMARY | 2024-04-29 19:21 | XMS_ITS | Clinical Summary ---
Author Organization [facility] Address [address] [place] [address] Phone Care Team Providers Care Veneer Jointer Operator Name Role Phone Isaiah Quiros MD Primary Care Provider [phone] Allergies No known active allergies Medications Medication Sig Dispensed Refills Start Date End Date Status topiramate (TROKENDI XR) 200 mg Extended Release 24 hour capsuleIndications :Migraine headache Take 100 mg by mouth 2 times daily. Active ondansetron (ZOFRAN ODT) 4 mg Tablet, Rapid DissolveIndication s:Migraine headache Place 1 Tab under tongue every 8 hours as needed for Nausea/Emesis. 15 Tab 0 11/16/2013 Active etanercept (ENBREL) 25 mg (1 mL) Recon Soln Inject 25 mg by subcutaneous injection one time only. Active DULoxetine (CYMBALTA) 60 mg Capsule, Delayed Release(E.C.) Take 60 mg by mouth daily. Active buPROPion HCl (WELLBUTRIN XL) 300 mg Extended Release 24 hour tablet Take 300 mg by mouth daily manufacturing engineer. Active pregabalin (LYRICA) 100 mg Capsule Take 100 mg by mouth. Active lubiprostone (AMITIZA) 24 mcg CapsuleIndications :constipation Take 24 mcg by mouth 2 times daily with meals. Active azaTHIOprine (AZASAN) 100 mg tabletIndications: immunosuppression Take by mouth. Act stanley traZODone (DESYREL) 100 mg tabletIndications: insomnia Take 100 mg by mouth daily at bedtime. Active polyethylene glycol 3350 (MIRALAX) 17 gram/dose Powder Take 1 SCOOP (17 Grams) by mouth 2 times daily as needed for Constipation. Dissolve in 8 ounces of fluid and drink entire liquid 527 Gram 12/29/2018 Active docusate sodium (COLACE) 50 mg capsule Take 1 Capsule (50 mg) by mouth 3 times daily as needed for Constipation. 12/29/2018 Active ALPRAZolam (XANAX) 0.5 mg tabletIndications: Abdominal pain, unspecified abdominal location Take 1 tablet by mouth 2 times daily. 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 RA (rheumatoid arthritis) 12/27/2018 Diverticulosis 12/27/2018 Diffuse abdominal pain 12/27/2018 Medical cannabis use 12/27/2018 Anemia 12/26/2018 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 syndrome wit h both constipation and diarrhea 07/23/2018 Migraine headache 11/16/2013 Resolved Problems Problem Noted Date Diagnosed Date Resolved Date Abdominal pain 12/26/2018 12/27/2018 Family History Medical History Relation Name Comments Cancer Father Celiac Disease Neg Hx Crohn's Disease Neg Hx Diabetes Neg Hx Inflammatory Bowel Disease Neg Hx Ulcerative Colitis Neg Hx Relation Name Status Comments Father Social History Tobacco Use Types Packs/Day Years Used Date Smoking Tobacco: Former Cigarettes Q uit: 05/28/2013 Smokeless Tobacco: Never Tobacco Cessation:Ready to Q uit: No Alcohol Use Standard Drinks/Week Comments Yes 0 (1 standard drink = 0.6 oz pur e alcohol) Sex and Gender Information Value Date Recorded Sex Assigned at Not on file Gender Identity Not on file Sexual Orientation Not on file Last Filed Vital Signs Vital Sign Reading Time Taken Comments Blood Pressure 131/87 04/01/2019 10:31 AM BREAD MOLDER Pulse 101 04/01/2019 10:31 AM BREAD MOLDER Temperature 36.4 ??C (97.6 ??F) 12/29/2018 12:00 PM C DT Respiratory Rate 18 12/29/2018 12:00 PM CDT Oxygen Saturation 99% 12/29/2018 12:00 PM CDT Inhaled Oxygen Concentration - - Weight 90.5 kg (199 lb 9.6 oz) 04/01/2019 10:31 AM BREAD MOLDER Height 170.7 cm (5' 7.2 ) 04/01/2019 10:31 AM CS T Body Mass Index 31.08 04/01/2019 10:31 AM BREAD MOLDER Plan of Treatment Health Maintenance Due Date Last Done Comments HEPATITIS B VACCINES (1 of 3 - 19+ 3-dose series) 04/24 CERVICAL CANCER SCREENING 2004 BREAST CANCER SCREENING 2014 PNEUMOCOCCAL VACCINE 0-64 YEARS (2 of 2 - PCV) 019 05/10/2017 COLORECTAL SCREENING 2019 Colorectal Cancer Screening 2019 FIT-DNA Q 3 years 2019 FIT/FOBT Q 1 year 2019 Flex Sig/CT Colonography Q 5 years 2019 INFLUENZA VACCINE (#1) 2023 01/30/2017 DTAP/TDAP/TD VACCINES (2 - Td or Tdap) 05/10/2027 Advance Directives For more information, please contact: [phone] * Full Code (Latest Code Status on File) Date Activated Date Inactivated Comments 12/27/2018 10:12 AM 12/29/2018 7:43 PM Care Teams Veneer Jointer Operator Relationship Specialty Start Date End Date Isaiah Quiros MD [address] [place] [address] PCP - General Internal Medicine 04/16/18
--- OUTSIDE RECORDS SUMMARY | 2024-04-29 19:21 | XMS_ITS | Encounter Summary ---
Author Organization [facility] Address [address] [place] [address] Phone Care Team Providers Care Machine Set Up Technician Name Role Phone Toi Fair DO Unavailable [phone] Amadeo Hernandez MD Unavailable Isaiah Quiros MD Primary Care Provider [phone] Reason for Visit * Reason Onset Date Comments Medication Management 09/28/2020 Prior Authorization 09/28/2020 Encounter Details Date Type Department Care Team (Late st Contact Info) Description 09/28/2020 Telephone [facility] - Gastroenterology [facility] [address] [place] [address] Toi Fair, DO [address] [id number] Medication Management; Prior Authorization Social History Tobacco Use Types Packs/Day Years Used Date Smoking Tobacco: Never Assessed Comments Unknown Sex and Gender Information Value Date Recorded Sex Assigned at Not on file Legal Sex Female 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 * Telephone Encounter - Marlene Hodge RN - 09/29/2020 11:45 AM CDT Called [facility] spoke with [employer], he will fax a prior auth request to office for Amitza. Prescription information in message below. Per Cash, he cannot fax a copy of the script due to it is not a secured fax. Pended order removed. * Telephone Encounter - Marlene Hodge RN - 09/29/2020 11:24 AM CDT Images from the original note were not included. Toi Fair, DO You 45 minutes ago (10:39 AM) If they have a written prescription that I wrote they can do prior off. * Telephone Encounter - Marlene Hodge RN - 09/28/2020 2:36 PM CDT Patient reports that her insurance will not cover the Amitiza, she reports that it will need a prior auth. Patient reports she received a paper script. Dr. Manjula Watts prescription pended as no print for documentation, please review and approve, will submit for prior auth. Is it ok to do a prior auth? Please advise. [place] [facility] [place] [facility] [place] [facility] [place], spoke with MarichuyQubit. Patient dropped off prescription for Amitza 24 mcg caps po 1 cap daily am, #90. Per colonoscopy Report from [facility] on 09/23/2019, Amitiza 24 mg every day, this is for chronic idiopathic constipation and IBS with constipation. Patient is intolerant to Linzess. documented in this encounter Plan of Treatment Not on file documented as of this encounter Visit Diagnoses Not on filedocumented in this encounter Care Teams Machine Set Up Technician Relationship Specialty Start Date End Date Isaiah Quiros MD [address], [address] [place] [address] PCP - General Internal Medicine 05/08/18 Toi Fair DO Gastroenterology 12/03/16 Amadeo Hernandez MD [address] [place] [address] 12/03/16 documented as of this encounter
--- OUTSIDE RECORDS SUMMARY | 2024-04-29 19:21 | XMS_ITS | Encounter Summary ---
Author Organization [facility] Address [address] [place] [address] Care Team Providers Care Swimming Pool Service Technician Name Role Phone Isaiah Quiros MD Primary Care Provider Encounter Details Date Type Department Care Team (Late st Contact Info) Description 05/11/2019 Abstract [facility] Gastroenterology [place] A [address] [facility] [address] [place] [address] Alex Mahajan MD [address] [facility] [address] [place] [address] Social History Tobacco Use Types [...] on filedocumented in this encounter Care Teams Swimming Pool Service Technician Relationship Specialty Start Date End Date Isaiah Quiros MD [address] [place] [address] PCP - General Internal Medicine 04/16/18 documented as of this encounter
--- OUTSIDE RECORDS SUMMARY | 2024-04-29 19:21 | XMS_ITS | Encounter Summary ---
Author Organization [facility] Address [address] [place] [address] Care Team Providers Care Die Technician Name Role Phone Isaiah Quiros MD Primary Care Provider [phone] Reason for Visit * Reason Onset Date Comments Medication Refill Medication Refill 07/01/2020 Encounter Details Date Type Department Care Team (Late st Contact Info) Description 06/28/2020 Refill [facility] Gastroenterology [place] A [address] [facility] [address] [place] [address] Alex Mahajan MD [address] [facility] [address] [place] [address] Intermittent generalized abdominal pain Social [...] pain documented in this encounter Care Teams Die Technician Relationship Specialty Start Date End Date Isaiah Quiros MD [address] [place] [address] PCP - General Internal Medicine 04/16/18 documented as of this encounter
--- OUTSIDE RECORDS SUMMARY | 2024-04-29 19:21 | XMS_ITS | Encounter Summary ---
Author Organization [facility] Address [address] [place] [address] Phone Care Team Providers Care Internal Security Manager Name Role Phone Toi Fair DO Unavailable [phone] Amadeo Hernandez MD Unavailable Isaiah Quiros MD Primary Care Provider [phone] Encounter Details Date Type Department Care Team (Late st Contact Info) Description 09/01/2020 Telephone [facility] - Gastroenterology [facility] [address] [place] [address] Toi Fair, DO [address] [id number] Social History Tobacco Use Types Packs/Day Years Used Date Smoking Tobacco: Never Assessed Comments Unknown Sex and Gender Information Value Date Recorded Sex Assigned at Not on file Legal Sex Female 3:35 PM LICENSING COORDINATOR Gender Identity Not on file Sexual Orientation Not on file documented as of this encounter Miscellaneous Notes * Telephone Encounter - Omayra Walton - 09/01/2020 10:08 AM CDT Colon Prep instructions documented in this encounter Plan of Treatment Not on file documented as of this encounter Visit Diagnoses Not on filedocumented in this encounter Care Teams Internal Security Manager Relationship Specialty Start Date End Date Isaiah Quiros MD [address], [address] [place] [address] PCP - General Internal Medicine 05/08/18 Toi Fair DO Gastroenterology 12/03/16 Amadeo Hernandez MD [address] [place] [address] 12/03/16 documented as of this encounter
--- OUTSIDE RECORDS SUMMARY | 2024-04-29 19:21 | XMS_ITS | Encounter Summary ---
Author Organization [facility] Address [address] [place] [address] Care Team Providers Care Practice Manager Name Role Phone Isaiah Quiros MD Primary Care Provider [phone] Reason for Visit * Reason Comments Medication Refill Encounter Details Date Type Department Care Team (Late st Contact Info) Description 03/20/2019 Refill [facility] Gastroenterology [place] A [address] [facility] [address] [place] [address] Alex Mahajan MD [address] [facility] [address] [place] [address] Intermittent generalized abdominal pain Social [...] pain documented in this encounter Care Teams Practice Manager Relationship Specialty Start Date End Date Isaiah Quiros MD [address] [place] [address] PCP - General Internal Medicine 04/16/18 documented as of this encounter
--- OUTSIDE RECORDS SUMMARY | 2024-04-29 19:21 | XMS_ITS | Encounter Summary ---
Author Organization [facility] Address [address] [place] [address] Care Team Providers Care Application Infrastructure Engineer Name Role Phone Isaiah Quiros MD Primary Care Provider [phone] Encounter Details Date Type Department Care Team (Late st Contact Info) Description 07/23/2018 Orders Only [facility] Admitting [address] [place] [address] Alex Mahajan MD [address] [facility] [address] [place] [address] Social History Tobacco Use Types [...] on filedocumented in this encounter Care Teams Application Infrastructure Engineer Relationship Specialty Start Date End Date Isaiah Quiros MD [address] [place] [address] PCP - General Internal Medicine 04/16/18 documented as of this encounter
--- OUTSIDE RECORDS SUMMARY | 2024-04-29 19:21 | XMS_ITS | Encounter Summary ---
Author Organization [facility] Address [address] [place] [address] Phone Care Team Providers Care Disaster Response Director Name Role Phone Toi Fair DO Unavailable [phone] Amadeo Hernandez MD Unavailable Isaiah Quiros MD Primary Care Provider [phone] Reason for Visit * Reason Onset Date Comments Nausea 10/31/2020 Encounter Details Date Type Department Care Team (Late st Contact Info) Description 10/31/2020 Telephone [facility] - Gastroenterology - [place] [address] [place] [phone] Harvey Keenan MD [address] [place] [address] Nausea Social History Tobacco Use Types Packs/Day Years Used Date Smoking Tobacco: Never Assessed Comments Unknown Sex and Gender Information Value Date Recorded Sex Assigned at Not on file 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 in accordion folder near desk for appt on 11/11/2020. * Telephone Encounter - Marlene Hodge RN - 10/31/2020 1:09 PM CDT Patient calling and reporting that she when she gets up in the morning she cannot eat anything. Patient is able to eat at the end of the day. She is able to tolerate eating in the evening. Patient reports that she did have a colonoscopy with Dr. Fair. Per chart review, patient had colonoscopy on 09/22/2020 at [facility]. Per chart review, patient was advised to go to ER, see nurse triage for 09/28/2020. Patient jeremiah was seen at the ER at [facility] and was diagnosed with ovarian cyst and had a colonoscopy ordered. Denies any black, bloody or tarry stools. New patient appt scheduled for 11/11/2020. Called [facility] records, spoke with Mohit. Will fax letter head with request to [facility]. [phone]. Fax successful. documented in this encounter Plan of Treatment Not on file documented as of this encounter Visit Diagnoses Not on filedocumented in this encounter Care Teams Disaster Response Director Relationship Specialty Start Date End Date Isaiah Quiros MD [address], [address] [place] [address] PCP - General Internal Medicine 05/08/18 Toi Fair DO Gastroenterology 12/03/16 Amadeo Hernandez MD [address] [place] [address] 12/03/16 documented as of this encounter
--- OUTSIDE RECORDS SUMMARY | 2024-04-29 19:21 | XMS_ITS | Encounter Summary ---
Author Organization [facility] Address [address] [place] [address] Care Team Providers Care Deep Well Contractor Name Role Phone Isaiah Quiros MD Primary Care Provider [phone] Reason for Visit * Reason Comments Medication Refill Encounter Details Date Type Department Care Team (Late st Contact Info) Description 03/21/2020 Refill [facility] Gastroenterology [place] A [address] [facility] [address] [place] [address] Alex Mahajan MD [address] [facility] [address] [place] [address] Intermittent generalized abdominal pain Social [...] pain documented in this encounter Care Teams Deep Well Contractor Relationship Specialty Start Date End Date Isaiah Quiros MD [address] [place] [address] PCP - General Internal Medicine 04/16/18 documented as of this encounter
--- OUTSIDE RECORDS SUMMARY | 2024-04-29 19:21 | XMS_ITS | Encounter Summary ---
Author Organization [facility] Address [address] [place] [address] Care Team Providers Care Java Project Manager Name Role Phone Isaiah Quiros MD Primary Care Provider [phone] Reason for Visit * Reason Onset Date Comments Medication Refill Medication Refill 05/15/2019 Encounter Details Date Type Department Care Team (Late st Contact Info) Description 10/30/2018 Refill [facility] Gastroenterology [place] A [address] [facility] [address] [place] [address] Alex Mahajan MD [address] [facility] [address] [place] [address] Intermittent generalized abdominal pain Social [...] pain documented in this encounter Care Teams Java Project Manager Relationship Specialty Start Date End Date Isaiah Quiros MD [address] [place] [address] PCP - General Internal Medicine 04/16/18 documented as of this encounter
--- OUTSIDE RECORDS SUMMARY | 2024-04-29 19:21 | XMS_ITS | Encounter Summary ---
Author Organization [facility] Address [address] [place] [address] Care Team Providers Care Lye Boiler Name Role Phone Isaiah Quiros MD Primary Care Provider [phone] Reason for Visit * Reason Comments Medication Refill Encounter Details Date Type Department Care Team (Late st Contact Info) Description 11/16/2018 Refill [facility] Gastroenterology [place] A [address] [facility] [address] [place] [address] Alex Mahajan MD [address] [facility] [address] [place] [address] Social History Tobacco Use Types [...] on filedocumented in this encounter Care Teams Lye Boiler Relationship Specialty Start Date End Date Isaiah Quiros MD [address] [place] [address] PCP - General Internal Medicine 04/16/18 documented as of this encounter
--- OUTSIDE RECORDS SUMMARY | 2024-04-29 19:21 | XMS_ITS | Encounter Summary ---
Author Organization [facility] Address [address] [place] [address] Care Team Providers Care Broadcast Maintenance Technician Name Role Phone Isaiah Quiros MD Primary Care Provider [phone] Reason for Referral * MRI (Routine) - Closed Specialty Diagnoses / Procedures Referred By Contac t Referred To Contact MRI Diagnoses Elevated amylase and lipase Epigastric abdominal pain Procedures MRI MRCP W AND WO CONTRAST Alex Mahajan MD [address] [address] Referral ID Status Reason Start Date Expiration Date V isits Requested Visits Authorized [id number] Closed [facility] CTS 08/06/2018 09/05/2018 1 1 Encounter Details Date Type Department Care Team (Latest Contact Info) Description 07/28/2018 Orders Only [facility] Gastroenterology [place] A [address] [facility] [address] [place] [address] Alex Mahajan MD [address] [facility] [address] [place] [address] Elevated amylase and lipase (Primary Dx); Epigastric abdominal pain Social History Tobacco Use Types [...] on file documented as of this encounter Results * MRI MRCP W AND WO CONTRAST (08/07/2018 8:09 AM CDT) Anatomical Region Laterality Modality Abdomen Magnetic Resonan ce 08/07/2018 8:09 AM CDT Impressions 08/07/2018 11:59 AM CDT IMPRESSION: Scattered cavernous hemangiomas and cysts within the liver of no clinical significance. No acute intra-abdominal abnormality identified. DICTATION LOCATION: Location 1 - [facility] Narrative 08/07/2018 11:59 AM CDT EXAMINATION: MRI MRCP [...] abnormality identified. DICTATION LOCATION: Location 1 - [facility] Alex Mahajan MD MR ORDERABLES documented in this encounter Visit Diagnoses Diagnosis Elevated amylase and lipase- Primary Other nonspecific abnormal serum enzyme levels Epigastric abdominal pain Abdominal pain, epigastric Elevated amylase and lipase Other nonspecific abnormal serum enzyme levels Epigastric abdominal pain Abdominal pain, epigastric documented in this encounter Care Teams Broadcast Maintenance Technician Relationship Specialty Start Date End Date Isaiah Quiros MD [address] [place] [address] PCP - General Internal Medicine 04/16/18 documented as of this encounter
--- OUTSIDE RECORDS SUMMARY | 2024-04-29 19:21 | XMS_ITS | Encounter Summary ---
Author Organization [facility] Address [address] [place] [address] Care Team Providers Care Consumer Educator Name Role Phone Isaiah Quiros MD Primary Care Provider [phone] Reason for Visit * Reason Comments Medication Refill Encounter Details Date Type Department Care Team (Late st Contact Info) Description 12/21/2019 Refill [facility] Gastroenterology [place] A [address] [facility] [address] [place] [address] Alex Mahajan MD [address] [facility] [address] [place] [address] Intermittent generalized abdominal pain Social [...] pain documented in this encounter Care Teams Consumer Educator Relationship Specialty Start Date End Date Isaiah Quiros MD [address] [place] [address] PCP - General Internal Medicine 04/16/18 documented as of this encounter
--- OUTSIDE RECORDS SUMMARY | 2024-04-29 19:21 | XMS_ITS | Encounter Summary ---
Author Organization [facility] Address [address] [place] [address] Care Team Providers Care Center Hole Reamer Name Role Phone Isaiah Quiros MD Primary Care Provider Reason for Visit * Reason Comments Medication Refill Encounter Details Date Type Department Care Team (Late st Contact Info) Description 06/03/2019 Refill [facility] Gastroenterology [place] [address] [facility] [address] [facility] [address] [place] [address] Alex Mahajan MD [address] [facility] [address] [place] [address] Intermittent generalized abdominal pain Social [...] pain documented in this encounter Care Teams Center Hole Reamer Relationship Specialty Start Date End Date Isaiah Quiros MD [address] [place] [id number] PCP - General Internal Medicine 04/16/18 documented as of this encounter
--- OUTSIDE RECORDS SUMMARY | 2024-04-29 19:21 | XMS_ITS | Encounter Summary ---
Author Organization [facility] Address 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 pregabalin (LYRICA) 100 mg Capsule Take 100 [...] 04/16/2018 08/22/2018 documented as of this encounter Progress Notes * Alex Mahajan MD - 07/28/2018 9:46 AM CDT I called the patient and discussed about her blood test results. Continues to have upper abdominal pain, more predominant in the epigastric area. Recent CT scan performed at an outside hospital was noncontributory. Informed her that I have placed an order for MRI/MRCP for further evaluation. Patient verbalized understanding. documented in this encounter Plan of Treatment Not on file documented as of this encounter Procedures Procedure Name Priority Date/Time Associated Diagnosis Comments CBC WITHOUT DIFFERENTIAL Routine 07/23/2018 12:52 PM CDT Intermittent generalized abdominal pain LIPASE Routine 07/23/2018 12:52 PM CDT Intermittent generalized abdominal pain AMYLASE Routine 07/23/2018 12:52 PM CDT Intermittent generalized abdominal pain documented in this encounter Results * (ABNORMAL) AMYLASE (07/23/2018 12:52 PM CDT) AMYLASE 130(H) 28 - 100 U/L 07/23/2018 2:05 PM CDT [facility] Blood Venipuncture / Unknown 07/23/2018 12:52 PM CDT 07/23/2018 1:14 PM CDT Alex Mahajan MD CHEMISTRY ORDERA BLES Performing Organization Address [facility]/ZIP Co de Phone Number [facility] CLIA# [id number] [address] [place] [address] * (ABNORMAL) LIPASE (07/23/2018 12:52 PM CDT) LIPASE 116(H) 13 - 60 U/L 07/23/2018 2:05 PM CDT [facility] Blood Venipuncture / Unknown 07/23/2018 12:52 PM CDT 07/23/2018 1:14 PM CDT Alex Mahajan MD CHEMISTRY ORDERA BLES Performing Organization Address [facility]/ZIP Co de Phone Number [facility] CLIA# [id number] [address] [place] [address] * (ABNORMAL) CBC WITHOUT DIFFERENTIAL (07/23/2018 12:52 PM CDT) WBC 6.9 4.0 - 9.8 K/uL 07/23/2018 1:23 PM CDT [facility] RBC 4.85 3.90 - 4.90 M/uL 07/23/2018 1:23 PM CDT [facility] HEMOGLOBIN 11.7(L) 11.8 - 14.8 g/dL 07/23/2018 1:23 PM CDT [facility] . [facility] HEMATOCRIT 39.0 35.5 - 44.0 % 07/23/2018 1:23 PM CDT [facility] . [facility] MCV 80.4(L) 82.0 - 99.0 fL 07/23/2018 1:23 PM CDT [facility] . [facility] MCH 24.1(L) 27.2 - 32.6 pg 07/23/2018 1:23 PM CDT [facility] . [facility] MCHC 30.0(L) 31.5 - 35.5 g/dL 07/23/2018 1:23 PM CDT [facility] . [facility] PLATELETS 405(H) 140 - 350 K/uL 07/23/2018 1:23 PM CDT [facility] - . [facility] MPV 9.1(L) 9.3 - 12.4 fL 07/23/2018 1:23 PM CDT [facility] - . [facility] RDW 15.9(H) 11.5 - 14.5 % 07/23/2018 1:23 PM CDT [facility] . [facility] RDW-STDEV 46.5 37.1 - 48.7 fL 07/23/2018 1:23 PM CDT [facility] . [facility] Blood Venipuncture / Unknown 07/23/2018 12:52 PM CDT 07/23/2018 1:15 PM CDT Alex Mahajan MD HEMATOLOGY ORDER BOB [facility]# [id number] [address] [place] [address] documented in this encounter Visit Diagnoses Diagnosis Intermittent generalized abdominal pain documented in this encounter Care Teams Bark Tanner Relationship Specialty Start Date End Date Isaiah Quiros MD [address] [place] [address] PCP - General Internal Medicine 04/16/18 documented as of this encounter
--- OUTSIDE RECORDS SUMMARY | 2024-04-29 19:21 | XMS_ITS | Encounter Summary ---
Author Organization [facility] Address [address] [place] [address] Phone Care Team Providers Care Corporate Travel Expert Name Role Phone Toi Fair DO Unavailable [phone] Amadeo Hernandez MD Unavailable Isaiah Quiros MD Primary Care Provider [phone] Encounter Details Date Type Department Care Team (Late st Contact Info) Description 09/30/2020 Telephone [facility] - Gastroenterology [facility] [address] [place] [address] Toi Fair, DO [address] [address] Social History Tobacco Use Types Packs/Day Years Used Date Smoking Tobacco: Never Assessed Comments Unknown Sex and Gender Information Value Date Recorded Sex Assigned at Not on file 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 insurance. This is good from 09/29/2020 to 09/29/2021. Patient notified, verbalized understanding. Called to Nory at [facility] in [facility], will get ready for patient. * Telephone Encounter - Sherri Cavanaugh CMA - 09/30/2020 1:03 PM CDT Prior authorization started through Cover[employer]Meds for Lubiprostone (Amiitiza). HARTMAN: [id number] documented in this encounter Plan of Treatment Not on file documented as of this encounter Visit Diagnoses Not on filedocumented in this encounter Care Teams Corporate Travel Expert Relationship Specialty Start Date End Date Isaiah Quiros MD [address], [address] [place] [address] PCP - General Internal Medicine 05/08/18 Toi Fair DO Gastroenterology 12/03/16 Amadeo Hernandez MD [address] [place] [address] 12/03/16 documented as of this encounter
--- OUTSIDE RECORDS SUMMARY | 2024-04-29 19:21 | XMS_ITS | Encounter Summary ---
Author Organization [facility] Address 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 I had a CT done, and they couldn't find anything, but they sent me here because my red blood cells went from 13.5 to 11.5. And my GI doc is here. Last BM yesterday, and sometimes when I go they are brown, black, and sticky. * Auth/Cert Specialty Diagnoses / Procedures Referred By Kaylynn phillips Referred To Contact Emergency Medicine [facility] Emergency Dept [address] [place] [address] Referral ID Status Reason Start Date Expiration Date Visits Re quested Visits Authorized [id number] 1 1 Encounter Details Date Type Department Care Team (Late st Contact Info) Description 12/26/2018 8:54 PM CDT - 12/29/2018 5:37 PM CDT Emergency [facility] [address] [place] [address] Binh Choudhury DO [address] [facility] [address] [place] [address] Linh Viera MD [address] [facility] [address] [place] [id number] Carlos Jordan MD [address] [place] [id number] Diffuse abdominal pain Discharge Disposition: Home or Self Care Social [...] Sign Reading Time Taken Comments Blood Pressure 120/55 12/29/2018 12:00 PM CDT Pulse 88 12/29/2018 12:00 PM CDT Temperature 36.4 ??C (97.6 ??F) 12/29/2018 12:00 PM C DT Respiratory Rate 18 12/29/2018 12:00 PM CDT Oxygen Saturation 99% 12/29/2018 12:00 PM CDT Inhaled Oxygen Concentration - - Weight 92 kg (202 lb 14.4 oz) 12/26/2018 11:51 P M CDT Height 166.4 cm (5' 5.5 ) 12/26/2018 11:51 PM CD T Body Mass Index 33.25 12/26/2018 11:51 PM CDT documented in this encounter Discharge Summaries * Rosalva Weller MD - 12/29/2018 5:[address] [facility] Adult Discharge Summary Julian aSuer 43 y.o. female 1975 CSN: [id number] Date of Admission: 12/26/2018 Date of Discharge: 12/29/2018 Discharging Physician: Rosalva Luevano MD LOS: 0 days PCP: Isaiah Quiros MD Code Status at Discharge: Full Code Dispo: Home Labs and studies from this hospitalization needing follow up: ?? None Follow-up: You must follow up with Isaiah Quiros MD in 1 week Admitting Dx and Chief Complaint Chief Complaint Patient presents with ??? Abdominal Pain Ambulatory to ED with reports of abdominal pain since Saturday, mostly around my belly button, but now it's everywhere, and I can't really tell where it is. I had a CT done, and they couldn't find anything, but they sent me here because my red blood cells went from 13.5 to 11.5. And my GI doc is here. Last BM yesterday, and sometimes when I go they are brown, black, and sticky. Diffuse abdominal pain Discharge Diagnoses and Relevant Hospital Course: Active Hospital Problems Diagnosis ??? RA (rheumatoid arthritis) ??? Diffuse abdominal pain ??? Diverticulosis ??? Medical cannabis use ??? Anemia ??? 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 syndrome with both constipation and diarrhea Resolved Hospital Problems Diagnosis Date Resolved ??? Abdominal pain 12/27/2018 Julian Sauer is a 43 y.o. female, w/ Hx of Meredith Danlos, IBS, RA, recurrent ovarian cysts, 1.4cm L renal cyst, benign cavernous heamangoima of liver, 3 hospitalisations for diverticulitis(most recently 2017), asymptomatic thyroid nodule, Lithiotripsy x5 for symptomatic nephrolithiasis,FMHx of Crohn's in brother, recent colonoscopy in Apr 2018 (significant for colitis + 2 polyps excised, done in [facility] in [place], requested copy of report) that was admitted for acute onchronic abdominal pain. Pt's colonscopy records were not obtained. Pt brought CD of abdominal CT, and CT was done during admission. Gastro consulted. 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 Pain improved with bowel regimen. Pt also had episode of burning pain 10/10 diffusely which resolved spontaneously w/ 2 hours and suspected to be due to capsaicin cream. Pt had repeat episode of abdominal pain prior to discharge which resolved with 0.5mg Xanax, sent home with 6 xanax and orders to f/u with PCP w/n 1 week. Pt has f/u appointment with Dr. Ramirez on 01/07. Nutritional status and in-house recommendations: Current Diet and/or Nutritional Supplementation ordered: DIET BLAND Discharge medications and new prescriptions: Medication List START taking these medications ALPRAZolam 0.5 mg tablet Commonly known as: XANAX Take 1 tablet by mouth 2 times daily. Signed by: Marlene Starks DO Quantity: 6 Tablet Refills: 0 docusate sodium 50 mg capsule Commonly known as: COLACE Take 1 Capsule (50 mg) by mouth 3 times daily as needed for Constipation. Signed by: Marlene Starks DO Refills: 0 polyethylene glycol 3350 17 gram/dose Powder Commonly known as: MIRALAX Take 1 SCOOP (17 Grams) by mouth 2 times daily as needed for Constipation. Dissolve in 8 ounces of fluid and drink entire liquid Signed by: Marlene Starks DO Quantity: 527 Gram Refills: 0 CONTINUE taking these medications azaTHIOprine 100 mg tablet Commonly known as: AZASAN Take by mouth. Refills: 0 Indications of Use: reduction in the body's resistance to infection buPROPion HCl 300 mg Extended Release 24 hour tablet Commonly known as: WELLBUTRIN XL Take 300 mg by mouth daily machine sizer. Refills: 0 dicyclomine 10 mg capsule Commonly known as: BENTYL TAKE 1 CAPSULE(10 MG) BY MOUTH EVERY 6 HOURS NEEDED FOR ABDOMINAL PAIN Signed by: Alex Mahajan MD Quantity: 60 Capsule Refills: 1 DULoxetine 60 mg Capsule, Delayed Release(E.C.) Commonly known as: CYMBALTA Take 60 mg by mouth daily. Refills: 0 etanercept 25 mg (1 mL) Recon Soln Commonly known as: ENBREL Inject 25 mg by subcutaneous injection one time only. Refills: 0 lubiprostone 24 mcg Capsule Commonly known as: AMITIZA Take 24 mcg by mouth 2 times daily with meals. Refills: 0 Indications of Use: constipation ondansetron 4 mg Tablet, Rapid Dissolve Commonly known as: ZOFRAN ODT Place 1 Tab under tongue every 8 hours as needed for Nausea/Emesis. Signed by: Rene Laguerre DO Quantity: 15 Tab Refills: 0 pantoprazole 40 mg Tablet, Delayed Release (E.C.) Commonly known as: PROTONIX TAKE 1 TABLET(40 MG) BY MOUTH DAILY 30 MINUTES BEFORE BREAKFAST Signed by: Alex Mahajan MD Quantity: 90 Tablet Refills: 6 pregabalin 100 mg Capsule Commonly known as: LYRICA Take 100 mg by mouth. Refills: 0 topiramate 200 mg Extended Release 24 hour capsule Commonly known as: TROKENDI XR Take 100 mg by mouth 2 times daily. Refills: 0 traZODone 100 mg tablet Commonly known as: DESYREL Take 100 mg by mouth daily at bedtime. Refills: 0 Indications of Use: chronic trouble sleeping STOP taking these medications raNITIdine 150 mg tablet Commonly known as: ZANTAC Where to Get Your Medications These medications were sent to [address] [facility] [address] Hours: Saturday-Saturday: 8 a.m. - 8 p.m., Saturday: 9 a.m. - 5 p.m., Saturday: 10 a.m. - 2 p.m. ?? ALPRAZolam 0.5 mg tablet Please take the prescriptions given to you during your stay and have them filled at any pharmacy. You don't need a prescription for these medications ?? docusate sodium 50 mg capsule ?? polyethylene glycol 3350 17 gram/dose Powder Consultants: IP CONSULT TO HOSPITALIST IP CONSULT TO GI IP CONSULT TO IV TEAM Brief Synopsis of Diagnostic Studies This Admission (Please see full report for details): Abd CT Discharge Lab Data (Please note date of lab as some may have preceeded admission) Lab Results Component Value Date/Time WBC 4.7 12/29/2018 07:34 AM HEMOGLOBIN 10.0 (L) 12/29/2018 07:34 AM HEMATOCRIT 34.5 (L) 12/29/2018 07:34 AM PLATELETS 354 (H) 12/29/2018 07:34 AM SODIUM 141 12/29/2018 07:34 AM CHLORIDE 107 12/29/2018 07:34 AM POTASSIUM 3.9 12/29/2018 07:34 AM CO2 22 12/29/2018 07:34 AM BUN 3 (L) 12/29/2018 07:34 AM CREATININE 1.00 (H) 12/29/2018 07:34 AM GLUCOSE 82 12/29/2018 07:34 AM AST 14 12/29/2018 07:34 AM ALT 17 12/29/2018 07:34 AM Discharge Exam: BP 120/55 (BP Location: Left arm, Patient Position (BP): Supine) Pulse 88 Temp 97.6 ??F (36.4 ??C) (Oral) Resp 18 Ht 5' 5.5 (1.664 m) Wt 92 kg (202 lb 14.4 oz) LMP (LMP Unknown) Comment:LMP 5 months ago stated on 12/26/2018 SpO2 99% ? No BMI 33.25 kg/m?? Last documented weight: Weight: 92 kg (202 lb 14.4 oz) (12/26/18 2351) Physical Exam: General alert, cooperative, no distress, appears stated age Lungs clear to auscultation bilaterally Heart regular rate and rhythm, S1, S2 normal, no murmur, click, rub or gallop Abdomen soft, tenderness to deep palpation in all quadrants, without masses or organomegaly Extremities Normal, no edema Skin Skin color, texture, turgor normal. No rashes or lesions Discharge Condition: improved to baseline. Activity: activity as tolerated. Diet: DIET CARDIAC Low Cholesterol (AHA),; 2GM Sodium (Low), Wound Care: None needed Primary Emergency Contact: Extended Emergency Contact Information Primary Emergency Contact: MARBIN SAUER [address]: [address] [place] [address] Mobile Relation: Spouse Secondary Emergency Contact: CHARLI SMART [facility] Relation: Father Signed: Rosalva Luevano MD 12/29/2018, 5:37 PM Associated attestation - Carlos Jordan MD - 12/29/2018 9:[address] [facility] Adult Hospitalist Attending Note I reviewed the medical record including the resident???s note (Dr Zhao) (available as hyperlinkbelow). I was present with the resident and participated during the history and physical examination of the patient on 12/29/2018. The laboratory findings and assessment and plan was reviewed with the resident. I also performed the critical or prieto portion(s) of the service as documented below, and was directly involved in the management of the patient and supervised the care provided. HPI/Hospital course: agree with resident note. Feeling much better today, tolerating diet. I have reviewed the physical exam findings in the resident???s note; my notable physical exam findings include: Gen Abd NAD, mildly anxious S/ND, +Tenderness in upper abdomen and periumbilical region with voluntary guarding but no rebound. I have reviewed the labs that were obtained over the last 24 hours. Notable amendments to the assessment and plan include: Diffuse abdominal pain - acute on chronic. CTA A/P yesterday without acute findings. Received ativan yesterday for extremeanxiety associated with abdominal pain. Today pain much improved but did develop severe anxiety andrequested BZD --improved with low dose Xanax, will prescribe 6 tabs at d/c but pt needs to f/u PCP JASSI for more definitive management of her anxiety. Stressed the importance of preventing constipation: she will take Miralax 1-2x daily, continue Amitiza, daily PPI per GI recs. Nutrition: Current Diet and/or Nutritional Supplementation ordered: No diet orders on file Carlos Jordan MD 12/29/2018 9:22 PM [facility] Hospitalist Approximately 35 minutes was spent in the care of this patient today; more than 50% was spent in counseling and coordination of care (patient/family conference, nursing conference and/or discussion with consultants). This patient is covered by internal medicine residents To reach Internal Medicine covered patients: Saturday-Saturday 7 AM- 5 PM: Page via the [facility] E-List 5 PM-7 AM: Call the national accounts sales analysis intern at zone phone [phone]. If no response please page the senior resident at [phone] Saturday and Saturday: 7 AM-12 PM: Page via the [facility] E-List 12 PM-7 AM: Call the national accounts sales analysis intern at zone phone [phone]. If no response please page the senior resident at [phone] If no response to the above steps in 10 minutes, please page the attending physician. documented in this encounter Discharge Instructions * Discharge Instructions* Marlene Starks DO - 12/29/2018 1:41 PM CDT Your discharging physicians are Carlos Jordan MD /Marlene Starks DO and may be reached at [phone] for any questions or concerns until you see your primary care physician. FOLLOW-UP Follow up with Isaiah Quiros MD within 7 days of discharge. This post hospital follow up visit presents a critical opportunity to address the conditions that precipitated your hospitalization and toreview the new medications prescribed to your during your stay. PRESCRIPTIONS GIVEN? no scripts needed. We recommend using stool softeners and laxatives daily as needed to maintain at least 1 bowel movement daily. IF you are having diarrhea, its okay to hold the dose, but if movements are formed and regular, continue the medications to keep them regular. SELF CARE: getting rest, eating well and increasing your activity appropriately are all excellent ways to return to your usual state of health prior to this hospital stay. ACTIVITY: Your activity level is: increase activity as tolerated. You may return to work/school: as tolerated DIET Your diet is: as tolerated. documented in this encounter Medications at Time of Discharge Medication Sig Dispensed Refills Start Date End Date polyethylene glycol 3350 (MIRALAX) 17 gram/dose Powder Take 1 SCOOP (17 Grams) by mouth 2 times daily as needed for Constipation. Dissolve in 8 ounces of fluid and drink entire liquid 527 Gram 12/29/2018 docusate sodium (COLACE) 50 mg capsule Take 1 Capsule (50 mg) by mouth 3 times daily as needed for Constipation. 12/29/2018 ALPRAZolam (XANAX) 0.5 mg tabletIndications:Abd ominal pain, unspecified abdominal location Take 1 tablet by mouth 2 times daily. 6 Tablet 12/29/2018 lubiprostone (AMITIZA) 24 mcg CapsuleIndications:co nstipation Take 24 mcg by mouth 2 times daily with meals. azaTHIOprine (AZASAN) 100 mg tabletIndications:imm unosuppression Take by mouth. traZODone (DESYREL) 100 mg tabletIndications:ins omnia Take 100 mg by mouth daily at bedtime. etanercept (ENBREL) 25 mg (1 mL) Recon Soln Inject 25 mg by subcutaneous injection one time only. DULoxetine (CYMBALTA) 60 mg Capsule, Delayed Release(E.C.) Take 60 mg by mouth daily. buPROPion HCl (WELLBUTRIN XL) 300 mg Extended Release 24 hour tablet Take 300 mg by mouth daily machine sizer. pregabalin (LYRICA) 100 mg Capsule Take 100 mg by mouth. topiramate (TROKENDI XR) 200 mg Extended Release 24 hour capsuleIndications:Mi graine headache Take 100 mg by mouth 2 times daily. ondansetron (ZOFRAN ODT) 4 mg Tablet, Rapid DissolveIndications:M igraine headache Place 1 Tab under tongue every 8 hours as needed for Nausea/Emesis. 15 Tab 0 11/16/2013 pantoprazole (PROTONIX) 40 mg Tablet, Delayed Release (E.C.) TAKE 1 TABLET(40 MG) BY MOUTH DAILY 30 MINUTES BEFORE BREAKFAST 90 Tablet 6 12/12/2018 03/14/2020 dicyclomine (BENTYL) 10 mg capsuleIndications:In termittent generalized abdominal pain TAKE 1 CAPSULE(10 MG) BY MOUTH EVERY 6 HOURS NEEDED FOR ABDOMINAL PAIN 60 Capsule 1 11/26/2018 01/16/2019 documented as of this encounter Progress Notes * Gladis Shay RN - 12/29/2018 3:46 PM CDT Patient being discharged home per MD order. Script to be filled by [facility] pharmacy. Patient remains free from distress at this time. Pain controlled with Xanax. at bedside to take patient home. Neither have any additional questions regarding discharge or follow-up. * Hari Dupree MD - 12/29/2018 9:46 AM CDT INPATIENT GI PROGRESS NOTE Julian Sauer 1975 12/29/2018 9:47 AM Pt being seen for: IBS with constipation, nausea HPI Abdomen is sore after having several BM's, but no pain. Nausea is better today. ROS: General: No F/C/NS, appetite changes, wt changes GI: See HPI, no melena or hematochezia PE: BP 125/89 (BP Location: Left arm, Patient Position (BP): Sitting) Pulse 93 Temp 97.9 ??F (36.6 ??C) (Oral) Resp 18 Ht 5' 5.5 (1.664 m) Wt 92 kg (202 lb 14.4 oz) LMP (LMP Unknown) Comment: LMP 5 months ago stated on 12/26/2018 SpO2 100% ? No BMI 33.25 kg/m?? Body mass index is 33.25 kg/m??. General: Well developed. Normal body habitus. No immediate distress. Non toxic appearing. Hearing grossly normal. Affect: Pleasant. Appropriate. Alertness: Alert and oriented. Lungs: Normal respiratory effort. Clear to auscultation. No adventitious sounds. Cardiovascular: S1S2. Regular. No m/r/c/g Abdomen: ND, +BS, soft, mild diffuse tenderness superficial, No HSM or palpable masses/hernial defects Intake/Output Summary (Last 24 hours) at 12/29/2018 0947 Last data filed at 12/29/2018 0018 Gross per 24 hour Intake 360 ml Output -- Net 360 ml BP 125/89 (BP Location: Left arm, Patient Position (BP): Sitting) Pulse 93 Temp 97.9 ??F (36.6 ??C) (Oral) Resp 18 Ht 5' 5.5 (1.664 m) Wt 92 kg (202 lb 14.4 oz) LMP (LMP Unknown) Comment: LMP 5 months ago stated on 12/26/2018 SpO2 100% ? No BMI 33.25 kg/m?? Current Facility-Administered Medications Ordered in [facility] Medication Dose Route Frequency Provider Last Rate Last Dose ??? morphine 4 mg/mL injection 4 mg 4 mg IV q 4 hour PRN Marlene Starks, DO 4 mg at 12/29/18 0838 ??? pantoprazole (PROTONIX) tablet 40 mg 40 mg Oral AC Daily Breakfast Frannie Cordova MD 40 mg at 12/29/18 0840 ??? morphine 4 mg/mL injection 4 mg 4 mg IV ONCE Marlene Starks, DO ??? dicyclomine (BENTYL) capsule 10 mg 10 mg Oral q 6 hour PRN Rosalva Weller MD 10 mg at12/28/18 1256 ??? pregabalin (LYRICA) capsule 100 mg 100 mg Oral Daily PRN Rosalva Weller MD 100 mg at 12/27/18 1537 ??? ondansetron (ZOFRAN ODT) tablet 4 mg 4 mg Sublingual q 8 hour PRN Rosalva Weller MD ??? lubiprostone (AMITIZA) capsule 24 mcg 24 mcg Oral BID Meals Rosalva Weller MD 24 mcg at 12/29/18 0844 ??? traZODone (DESYREL) tablet 100 mg 100 mg Oral Daily BEDTIME Rosalva Weller MD 100 mg at 12/28/182201 ??? DULoxetine (CYMBALTA) capsule 60 mg 60 mg Oral Daily Rosalva Weller MD 60 mg at 12/29/18 08 ??? naloxone (NARCAN) 0.4 mg/mL injection 0.1 mg 0.1 mg IV See Admin Notes Rosalva Weller MD ??? acetaminophen (TYLENOL) tablet 650 mg 650 mg Oral q 6 hour PRN Rosalva Weller MD ??? bisacodyl (DULCOLAX) rectal suppository 10 mg 10 mg Rectal Daily PRN Rosalva Weller MD ??? enoxaparin (LOVENOX) injection 40 mg 40 mg subCUT q 24 hour (daily) Rosalva Weller MD40 mg at 12/29/18843 ??? capsaicin (ZOSTRIX) 0.025 % topical cream Topical QID Rosalva Weller MD ??? sennosides-docusate sodium (SENNA-S) 8.6-50 mg per tablet 2 Tablet 2 Tablet Oral BID Carlos Jordan MD 2 Tablet at 12/28/182201 ??? azaTHIOprine (IMURAN) tablet 100 mg 100 mg Oral Daily BEDTIME Rsoalva Weller MD 100 mg at 12/28/182201 ??? buPROPion HCl (WELLBUTRIN XL) SR 24 hour tablet 300 mg 300 mg Oral Daily BEDTIME Kary Weller MD 300 mg at 12/28/183 ??? sodium chloride 0.9% infusion IV Continuous Rosalva Weller MD 125 mL/hr at 12/28/182002 ??? ondansetron (ZOFRAN) 4 mg/2 mL injection 4 mg 4 mg IV q 6 hour PRN Rosalva Weller MD 4 mg at 12/28/18 0922 Labs/Imaging: Lab Results Component Value Date/Time WBC 4.7 12/29/2018 07:34 AM HEMOGLOBIN 10.0 (L) 12/29/2018 07:34 AM HEMATOCRIT 34.5 (L) 12/29/2018 07:34 AM PLATELETS 354 (H) 12/29/2018 07:34 AM MCV 80.6 (L) 12/29/2018 07:34 AM Lab Results Component Value Date/Time SODIUM 141 12/29/2018 07:34 AM POTASSIUM 3.9 12/29/2018 07:34 AM CHLORIDE 107 12/29/2018 07:34 AM CO2 22 12/29/2018 07:34 AM CALCIUM 8.3 (L) 12/29/2018 07:34 AM BUN 3 (L) 12/29/2018 07:34 AM CREATININE 1.00 (H) 12/29/2018 07:34 AM GLUCOSE 82 12/29/2018 07:34 AM TOTAL PROTEIN 6.5 (L) 12/29/2018 07:34 AM ALBUMIN 3.7 12/29/2018 07:34 AM BILIRUBIN TOTAL 0.3 12/29/2018 07:34 AM ALKALINE PHOSPHATASE 75 12/29/2018 07:34 AM AST 14 12/29/2018 07:34 AM ALT 17 12/29/2018 07:34 AM ANION GAP 12 12/29/2018 07:34 AM Impression/Plan Abdominal pain IBS-C Nausea -CT unremarkable. continue Amitiza. We discussed the possible need for Miralax 1-2 times a day. Shedi d not tolerate Linzess. PPI. Nausea improved. Follow up with [facility] as outpatient. No further GI recs will sign off. D/W Dr. Joon Kay, PA-C [facility] Pager:[phone] As noted above. Feeling better on Amitiza- will continue. No additional GI studies anticipated at this time. OK for discharge with outpatient follow-up with Dr. Mahajan. Will sign off. Hrai Dupree MD [facility] * Diane Herrera, RT - 12/28/2018 6:54 PM CDT ?ST IMS CT MRI Medication and Flush Protocol [facility] Approved by: [facility] - Medical Executive Committee Approval Date: 11/06/2018 I ORDERS ARE ENTERED ???PER PROTOCOL?? Enter the protocol in the patient's electronic health record using smartphrase: .imagingmedflushprotocol Communication Orders: o For ordered imaging procedures requiring intravenous access: ??? Initiate a peripheral IV, if not [...] 15 minutes prior to procedure) ??? Sucrose 24% (Tootsweet; Sweet-Ease) oral solution 0.2 mL oral (apply to tongue on pacifier or clean, gloved finger), ONE TIME 2 minutes prior to painful procedure. May repeat dose x1 PRN to complete procedure. o Sodium chloride 0.9% (normal saline) flush 10 mLs PRN for saline lock or medication administration. o For respiratory distress, initiate oxygen and/or increase O2 to maintain saturation greater than 90% o For all invasive procedures: obtain Lidocaine 1% for intra-procedure administration. If Lidocaine1% unavailable, may substitute Lidocaine 2%. PROCEDURE SPECIFIC MEDICATIONS ??? Cystogram (CT Pelvis): Iopamidol (Isovue 300) 61%, 50mL, diluted with 250mL of sterile NS. Inject Isovue into 250mL bag ofNS. Clamp dsouza catheter prior to instilling solution [...] procedure. ??? If at any time the Transportation Dispatcher has a question about which option to administer, seek clarification from a Radiologist. o Iohexol (Omnipaque) 240 mg/mL: 50ml added to 960mL of clear liquid of patient's choice. Preferredroute is oral. May use nasoenteric tube if [...] oral. May use nasoenteric tube if needed. [facility] to 3 months Administer up to 90mL of Barium Sulfate, orally, one time only 4 months to 1 year old Administer up to 240mL of Barium sulfate, Orally, One Time Only 1 year old to 5 years old Administer up to 360mL of Barium sulfate, Orally, One Time Only 5 years old to 10 years old Administer up to 480mL of Barium sulfate, Orally, One Time Only Over 10 years old Administer up to 600mL of Barium sulfate, Orally, One Time Only ??? Iohexol (Omnipaque) 240 mg/mL oral solution ; Dilute 25mL of iohexol with 480mL of clear liquid of patient's choice. Administer the diluted solution per age as follows: Preferred route is orally. May use nasoenteric tube if needed. ; Send any remaining diluted Iohexol solution with the pateint's nurse to CT [facility] Administer 45mL of diluted Iohexol oral solution, [...] the diluted solution rectally via gravity per patient's tolerance, up to 950mLs, one time only. [...] IV CONTRAST PROTOCOLS for PEDIATRICS PEDIATRICS: Use weight-based dosing if patient is less than 55kg [...] 2 years and older Gadobenate Dimeglumine (Multihance) (0.1mmol/0.2mL), Administer 0.1mmol/kg = 0.2mL/kg up to MAX of 20mL intravenously, one time only OR Gadoteridol (Prohance) (0.1mmol/0.2mL), Administer 0.1mmol/kg = 0.2mL/kg up to MAX of 20mL, intravenously, one time only * Marlene Starks DO - 12/28/2018 4:40 PM CDT [facility] Resident Progress Note Patient Name: Julian Sauer Attending Physician: Carlos Jordan MD Primary Care Provider: Isaiah Quiros MD Date of Admission: 12/26/2018 Date of Service: 12/28/2018 Length of Stay: LOS: 0 days Previous history of present illness and review of systems have been reviewed today as documented inthe H&P on 12/26/2018; medications, labs, studies, notes, orders and consults have been reviewed.I have reviewed the notes from admission. Assessment and Plan: Active Problems: Diffuse abdominal pain with nausea -The patient's presenting abdominal pain seems to have improved this morning after having multiple bowel movements overnight. Later in the morning however the patient developed nausea and a burning pain which was near the umbilicus and in the epigastric region. This pain worsened throughout the morning and afternoon turning into 10 out of 10 burning pain which was resistant to IV Protonix, GI cocktail, hyoscyamine, and topical capsaicin. The patient seemed to get temporary relief from morphine, however was found this afternoon to be curled up in her bed shaking with pain. -The patient has known IBS with constipation as well as GERD. Her constipation has been inadequately treated at home and she likely had rebound reflux from missing doses of PPI since admission. The patient also uses marijuana edibles daily to treat her rheumatoid arthritis. This does not look like classic cannabis hyperemesis, but the marijuana may be playing a role. Labs and vital signs have been stable, however patient still believes that something else is wrong. -Patient's nurse sent down her CT disc from outside hospital to be put in the system by radiology, however this is not been accomplished yet. -I have ordered a stat CTA of abdomen and pelvis with oral contrast to rule out any organic problems. -For now we will continue symptomatic treatments, trying to avoid narcotics but allowing them for severe unrelenting pain. Chronic/Stable/Resolved Problems: Rheumatoid arthritis Anemia, currently with stable hemoglobin Meredith-Danlos syndrome Nutrition: Current Diet and/or Nutritional Supplementation ordered: DIET BLAND Quality/Safety/Core Measures/Disposition Planning: DVT PRX:hold due to anemia, appears acute, unclear source, SCD's Indwelling Lines/Devices: Peripheral IV Dsouza: absent; reason: N/A Patient's activity prior to admission: independent Patient lives with their family in a single family home PT and OT: N/A Code Status: Full Code Current Planned Disposition - Home suspect in 24-48 hours pending clinical course. Subjective/Overnight no acute events. Patient had multiple bowel movements - hard stool mixed with diarrhea. Some pain while having the movements but felt better this morning. Later in the morning developed burning upper abdominal pain the became 10/10. She became frustrated with care team because none of the medications tried helped her. She also does not understand why it is taking so long to get her OSH CT scan loaded. I provided reassurance and explained that reading the CT is not just putting the CD in a computer as she thought. She felt better when we decided to do a new CT to get a better picture and rule out any possible abdominal issues. Objective BP (!) 142/69 (BP Location: Right arm, Patient Position (BP): Sitting) Pulse (!) 106 Temp 98 ??F (36.7 ??C) (Oral) Resp 18 Ht 5' 5.5 (1.664 m) Wt 92 kg (202 lb 14.4 oz) LMP (LMP Unknown)Comment: LMP 5 months ago stated on 12/26/2018 SpO2 100% ? No BMI 33.25 kg/m?? Temp (24hrs), Av.8 ??F (36.6 ??C), Min:97.4 ??F (36.3 ??C), Max:98 ??F (36.7 ??C) Exam: Gen Alert, appears stated age First thing this morning, appeared comfortable, watching TV on tablet. Later during team rounds, appeared a little uncomfortable reporting a burning sensation - no meds given yet for the morning at that time Early afternoon - writhing in pain, shaking and crying s/p PPI, GI cocktail, hyoscyamine, capsaicintopical Lungs clear to auscultation bilaterally Heart regular rate and rhythm, S1, S2 normal, no murmur, click, rub or gallop Abdomen soft, diffusely tender but without guarding, no rebound, BS present, non-distended Extremities extremities normal, atraumatic, no cyanosis or edema Mental Status A& O x 3 Data: I have reviewed all new labs and studies resulted and pertinent ones are noted below CBC: Recent Labs 12/26/18 1933 12/27/18 0704 12/27/18 2341 12/28/18 0809 09/08/19 1551 WBC 10.9* -- 7.1 -- -- 6.5 -- HGB 11.7* < > 10.3* 10.4* < > 9.8* 10.4* 10.6* HCT 39.2 < > 34.8* 35.1* < > 33.1* 34.9* 36.6 PLT 427* -- 346 -- -- 354* -- MCV 79.5* -- 82.1 -- -- 81.9* -- < > = values in this interval not displayed. BMP: Recent Labs 12/26/18 1933 12/28/18 0809 NA 136 139 K 5.4* 4.1 CL 104 108* CO2 18* 23 ANIONGAP 14 8 CA 8.7 8.2* GLUCOSE 82 88 BUN 11 6 CREAT 0.95 0.99* Lipase 50 (previously 67) Marlene Starks DO 12/28/2018 5:01 PM Pager # [phone] I discussed the assessment of plan for the above patient with Carlos Brito MD This note was transcribed using [employer]ia voice recognition without a human manufacturing engineering technician. This report may or may not have been adjusted for typographical, grammaticaland syntax errors. This patient is covered by internal medicine residents To reach Internal Medicine covered patients: Saturday-Saturday 7 AM- 5 PM: Via secure text, if resident does not answer please page via the [employer] E-List 5 PM-7 AM: Via secure text (national accounts sales analysis intern will place themselves on the treatment team). If the resident does not answer call the [employer] phone [phone]. If no response please page the senior resident at [phone] Saturday and Saturday: 7 AM-12 PM: Via secure text, if resident does not answer please page via the [employer]-List 12 PM-7 AM: Via secure text (national accounts sales analysis intern will place themselves on the treatment team). If the resident does not answer call the [employer] phone [phone]. If no response please page the senior resident [phone] If no response to the above steps in 10 minutes, please page the attending physician via secure text or via the [employer]-list. Associated attestation - Carlos Jordan MD - 12/29/2018 8:26 AM CDT [facility] Hospitalist Attending Note I reviewed the medical record including the resident???s note (Dr Starks) (available as hyperlink below). I was present with the resident and participated during the history and physical examination of the patient on Friday December 28, 2018. The laboratory findings and assessment and plan was reviewed with the resident. I also performed the critical or prieto portion(s) of the service as documented below, and was directly involved in the management of the patient and supervised the care provided. S: c/o increasing burning epigastric pain, developed N/V late AM, progressively worsening pain. I have reviewed the physical exam findings in the resident???s note; my notable physical exam findings include: Gen Abd Anxious, uncomfortable. S/ND. +tenderness with guarding mid abdomen I have reviewed the labs that were obtained over the last 24 hours. Notable amendments to the assessment and plan include: Diffuse abdominal pain - unclear etiology. Given IV PPI per GI, no improvement. Given GI cocktail, iv morphine -- no significant improvement. Later developed 10/10 pain, uncontrolled -- STAT CTA A/P ordered. Monitor closely, f/u further GI recs, f/u final CT read. Carlos Jordan MD 12/29/2018 8:22 AM [facility] Approximately 35 minutes was spent in the care of this patient today; more than 50% was spent in counseling and coordination of care (patient/family conference, nursing conference and/or discussion with consultants). This patient is covered by internal medicine residents To reach Internal Medicine covered patients: Saturday-Saturday 7 AM- 5 PM: Page via the [facility] E-List 5 PM-7 AM: Call the national accounts sales analysis intern at zone phone [phone]. If no response please page the senior resident at [phone] Saturday and Saturday: 7 AM-12 PM: Page via the [facility] E-List 12 PM-7 AM: Call the national accounts sales analysis intern at zone phone [phone]. If no response please page the senior resident at [phone] If no response to the above steps in 10 minutes, please page the attending physician. * Marichuy Pineda, ANTHONY - 12/28/2018 1:57 PM CDT Pt called out around 1230 C/O 10/10, burning abd pain. Ginny Starks and Julian made aware of situation. Morphine, protonix and GI cocktail given at 1200. At 1400 pt continuing to C/O 10/10, burning, abd pain, and states she has never felt this type of pain before. Pt sent down for CT of abd dr1961 with oral contrast. * Frannie Miranda MD - 12/28/2018 12:14 PM CDT INPATIENT PROGRESS NOTE Julian Sauer 1975 12/28/2018 12:14 PM Abdominal pain improved with bowel purge and bowel movements yesterday. However now she complains of nausea with dry heaving. Physical Exam: BP 129/62 (BP Location: Right arm, Patient Position (BP): Standing) Pulse (!) 106 Temp 98 ??F (36.7 ??C) (Oral) Resp 18 Ht 5' 5.5 (1.664 m) Wt 92 kg (202 lb 14.4 oz) LMP (LMP Unknown) Comment: LMP 5 months ago stated on 12/26/2018 SpO2 100% ? No BMI 33.25 kg/m?? Body mass index is 33.25 kg/m??. Physical Exam: Anicteric, chronically ill-appearing Chest -unlabored respirations Abdomen - Soft, mild tenderness very superficially. Ext - No clubbing, cyanosis, or edema. Neuro- Alert and oriented x 3, motor exam grossly intact. Labs/Imaging: Lab Results Component Value Date/Time WBC 6.5 12/28/2018 08:09 AM HEMOGLOBIN 10.4 (L) 12/28/2018 08:09 AM HEMATOCRIT 34.9 (L) 12/28/2018 08:09 AM PLATELETS 354 (H) 12/28/2018 08:09 AM MCV 81.9 (L) 12/28/2018 08:09 AM Lab Results Component Value Date/Time SODIUM 139 12/28/2018 08:09 AM POTASSIUM 4.1 12/28/2018 08:09 AM CHLORIDE 108 (H) 12/28/2018 08:09 AM CO2 23 12/28/2018 08:09 AM CALCIUM 8.2 (L) 12/28/2018 08:09 AM BUN 6 12/28/2018 08:09 AM CREATININE 0.99 (H) 12/28/2018 08:09 AM GLUCOSE 88 12/28/2018 08:09 AM TOTAL PROTEIN 6.7 12/28/2018 08:09 AM ALBUMIN 3.7 12/28/2018 08:09 AM BILIRUBIN TOTAL 0.2 (L) 12/28/2018 08:09 AM ALKALINE PHOSPHATASE 71 12/28/2018 08:09 AM AST 13 12/28/2018 08:09 AM ALT 9 12/28/2018 08:09 AM ANION GAP 8 12/28/2018 08:09 AM Impression/Plan 43-year-old female with history of IBS with constipation here with worsening constipation and abdominal pain. She has improved with a bowel purge and bowel movements however now complains of nausea. I do note that she is on a PPI at home and has not gotten one since she is been here. I question whether her nausea and dry heaving is due to gastritis in the setting of rebound acid secretion. 1. Nausea 2. IBS with constipation 3. Abdominal pain due to constipation She should continue her amitiza, and may need to also take MiraLAX every day. Some patients also require PRN suppositories 1 or 2 times per week I restarted a PPI I gave her an IV dose today and then resume her normal PPI tomorrow. If this doesnot help with her nausea would consider giving her Remeron. She should follow-up with Dr. Mahajan as an outpatient. Our service will sign off with the aboverecommendations. Please call us if we can be of further assistance. Frannie Miranda MD [facility] Digestive Diseases * Ghazala Kraft, RN - 12/26/2018 11:30 PM CDT Undress and Assess performed by the following coworker: Ghazala Phillips Admission or upon transfer to: 73 ~~~~~~~~~~~~~~~~~~~~~~~~~~~~ Is the patient a paraplegic/quadriplegic? no Does the patient have new purple/dann/dark red over bony prominences? no Does the patient have an ostomy? no Is the length of stay >2 weeks? no ~If ANY answer 'yes'- please consult Wound Care~ Patient does not have skin breakdown. Location/ Description of breakdown: Wound care consult was not initiated. Protective Dressings Applied to Sacrum and Heels (Mepilex) as per Pathway? none Patient arrived to this room with the following belongings/valuables:(ie:dentures, hearing aids, glasses): wearing contacts, reading glasses at bedside Patient arrived to this room with the following medical equipment/devices (ie: insulin pump, home CPAP, walker): reading glasses at bedside All Jewelry removed from patient Patient refused wearing a necklace and ring Disposition of belongings/valuables: Spouse took home medications, tablet and phone at bedside. documented in this encounter H&P Notes * Rosalva Weller MD - 12/27/2018 1:07 PM CDT .. [facility] Internal Medicine Teaching Service History & Physical Patient Name: Julian Sauer Supervising Resident: Dr. Jordan Attending Physician: Carlos Jordan MD Primary Care Provider: Isaiah Quiros MD Date of Admission: 12/26/2018 Date of Service: 12/27/2018 Chief Complaint: Generalised Abd Pain HPI: Julian Sauer is a 43 y.o. female, w/ Hx of Meredith Danlos, IBS, RA, recurrent ovarian cysts, 1.4cm L renal cyst, benign cavernous heamangoima of liver, 3 hospitalisations for diverticulitis(most recently 2016), Lithiotripsy x5 for symptomatic nephrolithiasis, FMHx of Crohn's in brother, recent colonoscopy in Apr 2018 (significant for colitis + 2 polyps excised, done in [facility] in [place], requested copy of report) that is admitted for acute on chronic abdominal pain. Pt states last Saturday machine sizer she woke from sleep with sharp 9/10 periumbilical pain. The pain is pinching , intermittent, and sudden-onset. It has occurred off-and-on since Saturday morning andhas progressed to involve the lower abdominal quadrants b/l. She has associated nausea which she has taken zofran for, and no vomiting. She has had some stools which she describes as brown/black. Shehas a Hx of constipation with occasional diarrhea. Last BM was 12/23. The pain is not associated to food. She states that movement/exertion makes her pain worse. She takes CBD pills sometimes which shedoes state improves her pain. She went to her PCP who ordered an abdominal CT and bloodwork. Pt brings the CT disc with her today, and reports she was told it was normal. Her bloodwork was concerning for normocytic anemia and elevated lipase and amylase. She called Dr. Mahajan and was offered an appointment for 01/07. She came to our ED as she states her PCP recommended it would be easier as her GI is from [facility]. Her acute abd pain differs from the chronic pain she has experienced for the last two years. She usually feels a dull, aching pain in the LLQ almost always in the exact same location (midway between umbilicus and iliac crest) which is constantly a 4/10. She denies Hx of abdominal surgery, urinary symptoms, fever, allergies to gluten, smoking. Past Medical History: Past Medical History: Diagnosis Date ??? Arthritis ??? GI problem ??? Headache(784.0) migraine ??? Kidney calculus Past Surgical History: Past Surgical History: Procedure Laterality Date ??? HX KNEE SURGERY bilateral knee surg Prior to Admission Medications: Prior to Admission Medications Prescriptions Last Dose Informant Patient Reported? Taking? DULoxetine (CYMBALTA) 60 mg Capsule, Delayed Release(E.C.) 12/26/2018 at Unknown time Yes Yes Sig: Take 60 mg by mouth daily. azaTHIOprine (AZASAN) 100 mg tablet 12/26/2018 at Unknown time Yes Yes Sig: Take by mouth. buPROPion HCl (WELLBUTRIN XL) 300 mg Extended Release 24 hour tablet 12/26/2018 at Unknown time Yes Yes Sig: Take 300 mg by mouth daily machine sizer. dicyclomine (BENTYL) 10 mg capsule 12/26/2018 at Unknown time No Yes Sig: TAKE 1 CAPSULE(10 MG) BY MOUTH EVERY 6 HOURS NEEDED FOR ABDOMINAL PAIN etanercept (ENBREL) 25 mg (1 mL) Recon Soln Unknown at Unknown time Yes No Sig: Inject 25 mg by subcutaneous injection one time only. lubiprostone (AMITIZA) 24 mcg Capsule 12/26/2018 at Unknown time Yes Yes Sig: Take 24 mcg by mouth 2 times daily with meals. ondansetron (ZOFRAN ODT) 4 mg Tablet, Rapid Dissolve Past Week at Unknown time No Yes Sig: Place 1 Tab under tongue every 8 hours as needed for Nausea/Emesis. pantoprazole (PROTONIX) 40 mg Tablet, Delayed Release (E.C.) 12/26/2018 at Unknown time No Yes Sig: TAKE 1 TABLET(40 MG) BY MOUTH DAILY 30 MINUTES BEFORE BREAKFAST pregabalin (LYRICA) 100 mg Capsule 12/26/2018 at Unknown time Yes Yes Sig: Take 100 mg by mouth. raNITIdine (ZANTAC) 150 mg tablet Past Week at Unknown time Yes Yes Sig: Take 150 mg by mouth 2 times daily. topiramate (TROKENDI XR) 200 mg Extended Release 24 hour capsule Unknown at Unknown time Yes No Sig: Take 100 mg by mouth 2 times daily. traZODone (DESYREL) 100 mg tablet 12/26/2018 at Unknown time Yes Yes Sig: Take 100 mg by mouth daily at bedtime. Facility-Administered Medications: None Allergies: No Known Allergies Family History: family history includes Cancer in her father. Social History: reports that she quit smoking about 5 years ago. Her smoking use included cigarettes. She has neverused smokeless tobacco. She reports that she drinks alcohol. She reports that she has current or past drug history. Drug: Marijuana. Review of Systems: GEN: No weight loss or weight gain, energy level stable Skin: No rashes or eruptions HEENT: no sinus complaints Lungs: No cough, shortness of breath, or wheezing Cardiac: No CP, SOB,HX of LA, or angina GI: No n/v, no abdominal pain or change in bowel habits : No dysuria Musculoskeletal: No back pain, neck pain or joint pain or swelling NEURO: no prior cva or seizure All other ROS reviewed and are negative Objective: Body mass index is 33.25 kg/m??. BP 118/66 (BP Location: Left arm, Patient Position (BP): Sitting) Pulse 80 Temp 97.7 ??F (36.5 ??C) (Oral) Resp 20 Ht 5' 5.5 (1.664 m) Wt 92 kg (202 lb 14.4 oz) LMP (LMP Unknown) Comment: LMP 5 months ago stated on 12/26/2018 SpO2 100% ? No BMI 33.25 kg/m?? , Temp (24hrs), Av.1 ??F (36.7 ??C), Min:97.7 ??F (36.5 ??C), Max:98.4 ??F (36.9 ??C) General appearance alert, cooperative, no distress, appears stated age Head Normocephalic, without obvious abnormality, atraumatic Eyes Conjunctivae/corneas clear. PERRL, EOM's intact Ears Normal external exam. Hearing grossly intact. TMs clear bilaterally Nose Nares normal. Septum midline. Mucosa normal. No drainage or sinus tenderness Throat Lips, mucosa, and tongue normal. Teeth and gums normal Neck Supple, symmetrical, trachea midline, no adenopathy, thyroid: not enlarged, symmetric, no tenderness/mass/nodules, no carotid bruit and no JVD Back ROM normal. No tenderness Lungs CTAx2 Chest wall No tenderness Heart regular rate and rhythm, S1, S2 normal, no murmur. No rub or gallop Abdomen S+D, no rebound or guarding, tenderness in all quadrants, no masses MECHANICAL STRIPER Not evaluated Extremities Normal Pulses +2 radial b/l Skin Atraumatic, no cyanosis Lymph nodes Cervical, supraclavicular, and axillary nodes normal Neurologic CN2-12 intact, DTR's +2 biceps + patellar, sensation intact diffusely Rectal deferred Date Base: CBC: Recent Labs 12/26/18 19312/27/18 0031 12/27/18 0704 WBC 10.9* -- 7.1 HGB 11.7* 10.4* 10.3* 10.4* HCT 39.2 35.1* 34.8* 35.1* PLT 427* -- 346 MCV 79.5* -- 82.1 Recent Labs 12/26/181932 NA 136 K 5.4* CL 104 CO2 18* ANIONGAP 14 CA 8.7 GLUCOSE 82 BUN 11 CREAT 0.95 No results found for: INR, PT, PROTIMEPOC ABG: No results found for: PHARTERIAL, EVY2MQH, PO2ART, BRF9ONI, BASEEXCESS, SO2ABG Lactic acid: No results found for: LACTATE ECG Per report: sinus rhytm Chest X ray (N/A: Assessment and Plan: Acute on Chronic Abd Pain --Lipase and amylase elevated chronically, unsure of etiology, however there is no evidence of pancreatic/hepatic inflammation or biliary pathology --Repeat U/A unconcerning for source --Have requested colonoscopy records for evaluation --Have requested GI consult for recommendations --Repeat H and H non-worrisome for active GI bleed DVT PRX:Enoxaparin Indwelling Lines/Devices: Peripheral IV Dsouza: absent; reason: N/A Patient's activity prior to admission: independent Patient lives with their spouse in a single family home PT and OT: No Diet: Clear Liquid Nutritional Supplementation: N/A Family Communication: [id number], Telephone or Participation during IDT rounds Code Status: Full Code Current Planned Disposition - {Home which I anticipate will be completed 2-3 days I discussed the assessment of plan for the above patient with Carlos Brito MD Nabi A Chaudhri-Martinez, MD 12/27/2018 1:07 PM. Plan discussed with the patient, questions answered; patient agrees with current plan. More than 70 minutes were spent in the care of this patient today General Admit to Med Surg pathway initiated This note was transcribed using [employer] naturally speaking computerized voice recognition without a human manufacturing engineering technician. This report may or may not have been adjusted for typographical, grammaticaland syntax errors. This patient is covered by internal medicine residents To reach Internal Medicine covered patients: Saturday-Saturday 7 AM- 5 PM: Via secure text, if resident does not answer please page via the [employer] 5 PM-7 AM: Via secure text (national accounts sales analysis intern will place themselves on the treatment team). If the resident does not answer call the zone phone [phone]. If no response please page the senior resident at [phone] Saturday and Saturday: 7 AM-12 PM: Via secure text, if resident does not answer please page via the [facility] E-List 12 PM-7 AM: Via secure text (national accounts sales analysis intern will place themselves on the treatment team). If the resident does not answer call the zone phone [phone]. If no response please page the senior resident [phone] If no response to the above steps in 10 minutes, please page the attending physician via secure text or via the [facility] Hospitalist E-list. Associated attestation - Carlos Jordan MD - 12/27/2018 2:[address] [facility] Hospitalist Attending Note I reviewed the medical record including the resident???s note (Dr Zhao) (available as hyperlinkbelow). I was present with the resident and participated during the history and physical examination of the patient on 12/27/2018. The laboratory findings and assessment and plan was reviewed with the resident. I also performed the critical or prieto portion(s) of the service as documented below, and was directly involved in the management of the patient and supervised the care provided. HPI: Agree with resident note. Additionally, pt takes edible medicinal cannabis regularly for arthritic pain and nausea regularly, more recently. Admits that baths help with her abdominal pain for a little while. I have reviewed the physical exam findings in the resident???s note; my notable physical exam findings include: Gen Lungs CV ABD EXT NAD CTA RRR S/ND. +Tenderness diffusely especially mid abdomen, no significant guarding or rebound No edema. I have reviewed the labs that were obtained over the last 24 hours. Notable amendments to the assessment and plan include: Diffuse abdominal pain - suspect IBS exacerbated by recent constipation -- GI consulted, appreciate input, agree with aggressive bowel regimen. Will give mag citrate x 1, senna-s bid. I am also concerned that her habitual cannabis use is complicating picture -- will trial capsaicin topical to abdomen QID. Will try to have abdominal CT images uploaded into our system for review, obtain [facility] records from [facility]. CLD, advance as tolerated. Avoid narcotics for pain. Carlos Jordan MD 12/27/2018 2:11 PM [facility] Hospitalist Approximately 50 minutes was spent in the care of this patient today; more than 50% was spent in counseling and coordination of care (patient/family conference, nursing conference and/or discussion with consultants). This patient is covered by internal medicine residents To reach Internal Medicine covered patients: Saturday-Saturday 7 AM- 5 PM: Page via the [facility] E-List 5 PM-7 AM: Call the national accounts sales analysis intern at zone phone [phone]. If no response please page the senior resident at [phone] Saturday and Saturday: 7 AM-12 PM: Page via the [facility] E-List 12 PM-7 AM: Call the national accounts sales analysis intern at zone phone [phone]. If no response please page the senior resident at [phone] If no response to the above steps in 10 minutes, please page the attending physician. documented in this encounter Consult Notes * Earnestine Reynoso RN - 12/28/2018 6:15 PM CDTAssociated Order(s): IP CONSULT TO IV TEAM IV CONSULT: Request for IV consult. Reviewed electronic record and completed a vascular assessment. Ultrasound guided PIV started and documented in EPIC. Bed in low position,HOB up 35 degrees,?? side rails up X2. Safety check completed. RN notified. ?? * Wayne Walker, DO - 12/27/2018 12:56 PM CDT Inpatient GI Consultation Note [facility] Gastroenterology Consultation Note Patient: Julian Sauer / 43 y.o. / female : 1975 Date: 12/27/2018 CSN: [id number] Referring Physician:No ref. provider found PCP: Isaiah Quiros MD Reason for consult: History of Present Illness: Julian Sauer is a 43 y.o. who presents to her GP for acute abdominla pain THis is chornic pain. SHE stevens see Dr. Mahajan and reprots taht she could note get in and she went to her GP this past week. eh was sent to [facility] for A CT ascan and then she came to the ER her for evaltuaion of the pain. THe coker has been going for two years. At [facility] the pain can get bad up to a8-10 to where she is double over in a pain. SHe stevens shave constipaton. Lala deos not hav egood bowel evuation. Angie snto lobo eay laxative so abdomianl coker. HE does use suppositories for her constipation. This isthe only thing that works Lala has tried miralax if the apin gets bad. SHe stevens do a miralax bowel prep to empty out once in a while ant this helps. She had a colonoscopy in April and had colon polyps. Lala is on amitiza which does work. PAin occure if she is too constipated . Denies weight loss, hematemesis, nausea, vomiting or hematochezia Past History: Patient Active Problem List Diagnosis Date Noted ??? Abdominal pain 12/26/2018 ??? Anemia 12/26/2018 ??? 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 syndrome with both constipation and diarrhea 07/23/2018 ??? Migraine headache 11/16/2013 Past Medical History: Diagnosis Date ??? Arthritis ??? GI problem ??? Headache(784.0) migraine ??? Kidney calculus Past Surgical History: Procedure Laterality Date ??? HX KNEE SURGERY bilateral knee surg Medications Prior to Admission Medication Sig Dispense Refill Last Dose ??? lubiprostone (AMITIZA) 24 mcg Capsule Take 24 mcg by mouth 2 times daily with meals. 12/26/2018 at Unknown time ??? azaTHIOprine (AZASAN) 100 mg tablet Take by mouth. 12/26/2018 at Unknown time ??? traZODone (DESYREL) 100 mg tablet Take 100 mg by mouth daily at bedtime. 12/26/2018 at Unknown time ??? pantoprazole (PROTONIX) 40 mg Tablet, Delayed Release (E.C.) TAKE 1 TABLET(40 MG) BY MOUTH DAILY 30 MINUTES BEFORE BREAKFAST 90 Tablet 6 12/26/2018 at Unknown time ??? dicyclomine (BENTYL) 10 mg capsule TAKE 1 CAPSULE(10 MG) BY MOUTH EVERY 6 HOURS NEEDED FOR ABDOMINAL PAIN 60 Capsule 1 12/26/2018 at Unknown time ??? raNITIdine (ZANTAC) 150 mg tablet Take 150 mg by mouth 2 times daily. Past Week at Unknown time ??? DULoxetine (CYMBALTA) 60 mg Capsule, Delayed Release(E.C.) Take 60 mg by mouth daily. 12/26/2018 at Unknown time ??? buPROPion HCl (WELLBUTRIN XL) 300 mg Extended Release 24 hour tablet Take 300 mg by mouth dailyearly morning. 12/26/2018 at Unknown time ??? pregabalin (LYRICA) 100 mg Capsule Take 100 mg by mouth. 12/26/2018 at Unknown time ??? ondansetron (ZOFRAN ODT) 4 mg Tablet, Rapid Dissolve Place 1 Tab under tongue every 8 hours as needed for Nausea/Emesis. 15 Tab 0 Past Week at Unknown time ??? etanercept (ENBREL) 25 mg (1 mL) Recon Soln Inject 25 mg by subcutaneous injection one time only. Unknown at Unknown time ??? topiramate (TROKENDI XR) 200 mg Extended Release 24 hour capsule Take 100 mg by mouth 2 times daily. Unknown at Unknown time No Known Allergies Social History Tobacco Use ??? Smoking status: Former Smoker Types: Cigarettes Last attempt to quit: 05/28/2013 Years since quittin.5 ??? Smokeless tobacco: Never Used Substance Use Topics ??? Alcohol use: Yes Frequency: Monthly or less Family History Problem Relation Name Age of Onset ??? Cancer Father ??? Celiac Disease Neg Hx ??? Diabetes Neg Hx ??? Inflammatory Bowel Disease Neg Hx ??? Crohn's Disease Neg Hx ??? Ulcerative Colitis Neg Hx Medications Prior to Admission Medication Sig Dispense Refill Last Dose ??? lubiprostone (AMITIZA) 24 mcg Capsule Take 24 mcg by mouth 2 times daily with meals. 12/26/2018 at Unknown time ??? azaTHIOprine (AZASAN) 100 mg tablet Take by mouth. 12/26/2018 at Unknown time ??? traZODone (DESYREL) 100 mg tablet Take 100 mg by mouth daily at bedtime. 12/26/2018 at Unknown time ??? pantoprazole (PROTONIX) 40 mg Tablet, Delayed Release (E.C.) TAKE 1 TABLET(40 MG) BY MOUTH DAILY 30 MINUTES BEFORE BREAKFAST 90 Tablet 6 12/26/2018 at Unknown time ??? dicyclomine (BENTYL) 10 mg capsule TAKE 1 CAPSULE(10 MG) BY MOUTH EVERY 6 HOURS NEEDED FOR ABDOMINAL PAIN 60 Capsule 1 12/26/2018 at Unknown time ??? raNITIdine (ZANTAC) 150 mg tablet Take 150 mg by mouth 2 times daily. Past Week at Unknown time ??? DULoxetine (CYMBALTA) 60 mg Capsule, Delayed Release(E.C.) Take 60 mg by mouth daily. 12/26/2018 at Unknown time ??? buPROPion HCl (WELLBUTRIN XL) 300 mg Extended Release 24 hour tablet Take 300 mg by mouth dailyearly morning. 12/26/2018 at Unknown time ??? pregabalin (LYRICA) 100 mg Capsule Take 100 mg by mouth. 12/26/2018 at Unknown time ??? ondansetron (ZOFRAN ODT) 4 mg Tablet, Rapid Dissolve Place 1 Tab under tongue every 8 hours as needed for Nausea/Emesis. 15 Tab 0 Past Week at Unknown time ??? etanercept (ENBREL) 25 mg (1 mL) Recon Soln Inject 25 mg by subcutaneous injection one time only. Unknown at Unknown time ??? topiramate (TROKENDI XR) 200 mg Extended Release 24 hour capsule Take 100 mg by mouth 2 times daily. Unknown at Unknown time Review of Systems: Constitutional: no fever, appetite changes, weight loss Eyes: no eye pain, visual loss, blurry vision Mouth: no oral ulcers, sore throat Pulm: no shortness of breath, cough, hemoptysis CV: no chest pain, palpitations, or lower extremity edema GI : ( See HPI) : no hematuria, dysuria, Heme: no bleeding disorders or on blood thinners or lumps or bumps on body MSK: no painful or swollen muscle or joints Skin: no new skin rashes Neuro: no focal motor or sensory changes. Psychiatric: no anxiety or depression Physical Exam: Patient Vitals for the past 24 hrs: BP Temp Temp src Pulse Resp SpO2 Height Weight 12/27/18 1203 118/66 97.7 ??F (36.5 ??C) Oral 80 20 100 % -- -- 12/27/18 0747 105/85 98.4 ??F (36.9 ??C) Oral 98 20 99 % -- -- 12/27/18 0414 112/73 97.7 ??F (36.5 ??C) Axillary (!) 101 16 99 % -- -- 12/26/18 2351 121/72 98.4 ??F (36.9 ??C) Oral 84 18 100 % 5' 5.5 (1.664 m) 92 kg (202 lb 14.4 oz) 12/26/18 1731 (!) 148/83 98.2 ??F (36.8 ??C) Oral -- 16 100 % 5' 5.5 (1.664 m) 83.9 kg (185 lb) General: NAD, Alert HEENT: Head is NC/AT,conjuctiva and sclera are nonicteric, oropharynx is moist without obvious lesions Neck: supple, trachea midline, no significant adenopathy Lungs: CTA bilaterally CV: RRR, nl S1, S2 Abd: Positive BS, soft, Tender with palpation diffusely lower abdomen, ND, no organomegaly, no palpable masses Skin: no obvious rashes Neuro: alert and oriented and answers questions appropriately. CN 2-12 grossly intact. Assessment: Active Problems: Abdominal pain Anemia Diffuse abdominal pain Chronic abdominal pain Chronic constipation/IBS Plan: 43-year-old female with chronic constipation presents for evaluation of acute abdominal pain. She has severe abdominal pain which started about few days ago. She has CT scan and is in hospital. Patient reports that it was unremarkable. I wanted to. She does have chronic constipation IBS symptoms aswell. I suspect that this is the patient related abdominal pain or IBS related abdominal pain. Recommend hyoscyamine scheduled every 4 hours. Recommend milk of magnesia or mag citrate x1. Recommend abowel regimen to to achieve complete bowel evacuation once every 4 days. Provide reassurance. Further recommendations pending clinical course. documented in this encounter ED Notes * Jimmy Lopez RN - 12/26/2018 10:47 PM CDT Reported to nurse on medicine floor. * Jimmy Lopez RN - 12/26/2018 10:11 PM CDT Pt reported some relief of pain. * Binh Choudhury, - 12/26/2018 5:18 PM CDT HISTORY OF PRESENT ILLNESS Julian Sauer, a 43 y.o. female presents to the ED with a Chief Complaint of Abdominal Pain Subjective Documented Triage Chief Complaint: Abdominal Pain 9:06 PM: Julian Sauer is a 43 y.o. female, who presents to the Emergency Department with complaints of generalized abdominal pain x5 days. Patient states the pain started in her lower abdomen, but progressively spread and is now all over. Denies fever. Patient was seen by PCP prior to coming to the ED where she had a normal CT scan. She was advised to come to ED for further evaluation. PCP told her labs showed a lower RBC count (13.5 to 11.5) with normal iron panel. Patient has history of stomach ulcer. Patient takes Orencia for RA. Physician(s): Isaiah Quiros MD History provided by: The patient Arrived by: Private vehicle Abdominal Pain Pain location: Generalized Pain severity: Mild Onset quality: Gradual Duration: 5 days Timing: Constant Progression: Worsening Associated symptoms: no chest pain, no chills, no cough, no diarrhea, no dysuria, no fever, no hematuria, no nausea, no shortness of breath, no sore throat and no vomiting REVIEW OF SYSTEMS Review of Systems Constitutional: Negative for chills, diaphoresis and fever. HENT: Negative for congestion, ear pain, hearing loss, nosebleeds, sore throat and tinnitus. Eyes: Negative for photophobia, pain and visual disturbance. Respiratory: Negative for cough, chest tightness, shortness of breath and wheezing. Cardiovascular: Negative for chest pain, palpitations and leg swelling. Gastrointestinal: Positive for abdominal pain. Negative for blood in stool, diarrhea, nausea and vomiting. Genitourinary: Negative for decreased urine volume, difficulty urinating, dysuria, flank pain and hematuria. Musculoskeletal: Negative for arthralgias, back pain, gait problem and myalgias. Skin: Negative for rash and wound. Neurological: Negative for dizziness, seizures, syncope, facial asymmetry, weakness and headaches. Psychiatric/Behavioral: Negative for agitation, behavioral problems, confusion, self-injury, sleep disturbance and suicidal ideas. All other systems reviewed and are negative. PAST MEDICAL HISTORY REVIEWED MEDICAL: Patient has a past medical history of GI problem and Headache(784.0). She also has no past medical history of Allergy, Cancer, or Diabetes mellitus. SURGICAL: Patient has a past surgical history that includes hx knee surgery and pt denies relevant surgical history. FAMILY: Patient's family history is not on file. SOCIAL: reports that she has been smoking e-cigarette/mist inhalation device. She does not have any smokeless tobacco history on file. She reports that she drinks alcohol. She reports that she has current orpast drug history. Drug: Marijuana. She reports that she currently engages in sexual activity. No history on file. Social History Other Topics Concern ??? Not on file PROBLEM LIST: Patient has Migraine headache; 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 syndrome with both constipation and diarrhea; Abdominal pain; and Anemia on their problem list. ALLERGIES Patient has no known allergies. HOME MEDICATIONS Patient's Home Medications Current Home Medications BUPROPION HCL (WELLBUTRIN XL) 300 MG EXTENDED RELEASE 24 HOUR TABLET DICYCLOMINE (BENTYL) 10 MG CAPSULE DULOXETINE (CYMBALTA) 60 MG CAPSULE, DELAYED RELEASE(E.C.) ETANERCEPT (ENBREL) 25 MG (1 ML) RECON SOLN LINACLOTIDE (LINZESS) 290 MCG CAPSULE ONDANSETRON (ZOFRAN ODT) 4 MG TABLET, RAPID DISSOLVE PANTOPRAZOLE (PROTONIX) 40 MG TABLET, DELAYED RELEASE (E.C.) PREGABALIN (LYRICA) 100 MG CAPSULE RANITIDINE (ZANTAC) 150 MG TABLET TOPIRAMATE (TROKENDI XR) 200 MG EXTENDED RELEASE 24 HOUR CAPSULE Medications Modified during this Encounter Medications Discontinued during this Encounter Objective PHYSICAL EXAM INITIAL VS BP: (!) 148/83 (12/26/181730), Heart Rate: 110 bpm (12/26/181730), Resp: 16 (12/26/181730), Pulse: (not recorded), Temp: 98.2 ??F (36.8 ??C) (12/26/181730), Temp src: Oral (12/26/181730), SpO2: 100 % (12/26/181730), Height: 5' 5.5 (166.4 cm) (12/26/181730), Weight: 83.9 kg (185 lb) (12/26/181730), BMI (Calculated): 30.31 (12/26/181730) No LMP recorded (lmp unknown). Physical Exam Constitutional: She is oriented to person, place, and time. No distress. HENT: Head: Normocephalic and atraumatic. Nose: Nose normal. Eyes: Pupils are equal, round, and reactive to light. Conjunctivae and EOM are normal. Right eye exhibits no discharge. Left eye exhibits no discharge. Neck: Normal range of motion. Neck supple. No JVD present. No thyromegaly present. Cardiovascular: Normal rate, regular rhythm, normal heart sounds and intact distal pulses. Exam reveals no gallop and no friction rub. No murmur heard. Pulmonary/Chest: Breath sounds normal. No stridor. She has no wheezes. She has no rales. Abdominal: Soft. Bowel sounds are normal. She exhibits no distension and no mass. There is no tenderness. There is no rebound and no guarding. Benign abdominal exam. Musculoskeletal: Normal range of motion. She exhibits no edema or tenderness. Neurological: She is alert and oriented to person, place, and time. No cranial nerve deficit. Coordination normal. Skin: Skin is warm and dry. No rash noted. She is not diaphoretic. No erythema. No pallor. Psychiatric: She has a normal mood and affect. Judgment normal. Nursing note and vitals reviewed. DIAGNOSTICS LAB: CBC WITH DIFFERENTIAL - Abnormal Result Value WBC 10.9 (*) RBC 4.93 (*) HEMOGLOBIN 11.7 (*) HEMATOCRIT 39.2 MCV 79.5 (*) MCH 23.7 (*) MCHC 29.8 (*) RDW 17.3 (*) RDW-STDEV 49.6 (*) PLATELETS 427 (*) MPV 9.1 (*) NEUTROPHILS 65 LYMPHOCYTES 26 MONOCYTES 7 EOSINOPHILS 1 BASOPHILS 1 IMMATURE GRANULOCYTES 0 NEUTROPHIL ABSOLUTE 7.03 (*) LYMPHOCYTE ABSOLUTE 2.86 MONOCYTE ABSOLUTE 0.76 EOSINOPHIL ABSOLUTE 0.08 BASOPHILS ABSOLUTE 0.11 IMMATURE GRANULOCYTES ABSOLUTE 0.04 (*) COMPREHENSIVE METABOLIC PANEL - Abnormal SODIUM 136 POTASSIUM 5.4 (*) CHLORIDE 104 CO2 18 (*) CALCIUM 8.7 BUN 11 CREATININE 0.95 GLUCOSE 82 TOTAL PROTEIN 7.6 ALBUMIN 4.1 BILIRUBIN TOTAL 0.2 (*) ALKALINE PHOSPHATASE 78 AST 27 ALT 11 GFR >60 GFR, >60 ANION GAP 14 URINALYSIS WITH REFLEX MICROSCOPIC - Abnormal COLOR UA Yellow CLARITY UA Clear SPECIFIC GRAVITY UA 1.020 PH UA 6.0 LEUKOCYTE ESTERASE UA 1+ (*) NITRITE UA Negative PROTEIN UA 1+ (*) GLUCOSE UA Negative KETONES UA Negative UROBILINOGEN UA Normal BILIRUBIN UA Negative BLOOD UA Negative WBC UA 3-5 (*) RBC UA 3-5 (*) BACTERIA UA 1+ (*) EPITHELIAL CELLS, URINE 6-10 (*) YEAST, BUDDING Present (*) LIPASE - Abnormal LIPASE 67 (*) HCG QUALITATIVE, URINE - Normal HCG QUAL URINE Negative COLOR UA Yellow CLARITY UA Clear TYPE AND SCREEN RADIOLOGY: No orders to display PROCEDURES Procedures MEDICAL DECISION MAKING AND PLAN OF CARE --On initial evaluation, examined patient. Discussed labs showing normal hemoglobin. Will review CTand additional labs. 10:12 PM: Discussed with Dr. Viera ([facility] Hospitalist) who will admit to medical floor. 10:17 PM: Updated patient on all results and plan for admission to hospital for further evaluation.Understands and agrees with plan. All questions answered. ED provider and ED nurse verbally discussed patient plan of care at this time. MDM I have reviewed previous: notes, labs and CT I have reviewed current: labs I have reviewed nursing notes related to past medical history, social history, and review of systems and agree, unless otherwise noted. Consults: hospitalist Medications Administered During the ED Stay from 12/26/2018 1718 to 12/26/2018 2219 Date/Time Order Dose Route Action 12/26/2018 212 sodium chloride 0.9% infusion IV New Bag 12/26/2018 212 pantoprazole (PROTONIX) injection 40 mg 40 mg IV Given 12/26/20182119 ondansetron (ZOFRAN) 4 mg/2 mL injection 4 mg 4 mg IV Given 12/26/20182120 morphine 4 mg/mL injection 4 mg 4 mg IV Given . New Prescriptions for this Encounter LAST VS BP: (!) 148/83 (12/26/18 173), Heart Rate: 110 bpm (12/26/18 173), Resp: 16 (12/26/18 173), Pulse: (not recorded), Temp: 98.2 ??F (36.8 ??C) (12/26/181730), Temp src: Oral (12/26/181730), SpO2: 100 % (12/26/181730) CLINICAL IMPRESSION Final diagnoses: [R10.9] Abdominal pain, unspecified abdominal location (Primary) [D64.9] Anemia, unspecified type [K58.2] 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 syndrome with both constipation and diarrhea DISPOSITION, EDUCATION AND MEDICATION RECONCILIATION Medications reconciled. See after visit summary for patient education on discharged patients. ED Disposition ED Disposition Condition User Date/Time Comment Admit Stable Binh Choudhury DO SatDec 26, 2018 10:16 PM ATTESTATION STATEMENTS This note has been prepared by Charla Fields acting as a scribe for Dr. Anthony Choudhury on 12/26/2018 at 10:18 PM. The scribe's documentation has been prepared under my direction and personally reviewed by me, Binh Choudhury DO, in its entirety on 12/26/18 at 10:19 PM. I confirm that the note above accurately reflects all work, treatment, procedures, and medical decision making performed by me. documented in this encounter Miscellaneous Notes * Care Plan - Laurel Wu RN - 12/29/2018 4:52 AM CDT Julian alert and orientated x4. Up independent to bathroom Complained of pain x2, medicated per MAR. Pt rested for most of the shift Patient updated on POC and all questions answered. * Care Plan - Alix Lanza RN - 12/28/2018 12:32 PM CDT Problem: Discharge Planning Goal: Identify discharge needs upon admission and through discharge Description Outcome: Progressing Clinical documentation reviewed. Comprehensive Discharge Planning Risk Assessment was completed. Readmission Risk (patient becomes high risk with a score of 8 or greater) 0 Total Score Total Score of 9 or below does not identify immediate needs for discharge. Age Score: 0 Disability Score: 0 Prior Living Status Score: {0 Mobility Limitation Score: 0 TOTAL SCORE: [address] consult if needs for discharge are identified. Care Management will continue to follow for discharge planning. Alix Lanza brass pourer [id number] * Care Plan - Blanca Gregory RN - 12/28/2018 6:31 AM CDT Patient had several bowel movements this shift, medicated as order for complains of abdominal pain.No further changes noted. * Care Plan - Kaitlynn Dorantes RN - 12/27/2018 6:59 PM CDT C/o pain, morphine given, verbalized improvement in pain. New PIV obtained, L hand IV infiltrated, hand swollen. Diet advanced to bland, tolerating w/o difficulty. * Care Plan - Ghazala Kraft RN - 12/27/2018 2:31 AM CDT Julian is alert and oriented x 4, ambulates independently, and complains of abdominal pain 8/10 that is controlled with morphine. Bowel sounds are audible in all quadrants, vital signs have been stable.No further complaints at this time. documented in this encounter Plan of Treatment Not on file documented as of this encounter Procedures Procedure Name Priority Date/Time Associated Diagnosis Comments TSH REFLEXIVE Routine 12/29/2018 7:34 AM CDT CBC WITH DIFFERENTIAL Routine 12/29/2018 7:34 AM CDT COMPREHENSIVE METABOLIC PANEL Routine 12/29/2018 7:34 AM CDT CTA ABD PELVIS W AND/OR WO CONTRAST Stat 12/28/2018 6:51 PM CDT HEMOGLOBIN AND HEMATOCRIT Routine 12/28/2018 3:51 PM CDT CBC WITH DIFFERENTIAL Routine 12/28/2018 8:09 AM CDT LIPASE Stat 12/28/2018 8:09 AM CDT COMPREHENSIVE METABOLIC PANEL Routine 12/28/2018 8:09 AM CDT HEMOGLOBIN AND HEMATOCRIT Routine 12/27/2018 11:41 PM CDT HEMOGLOBIN AND HEMATOCRIT Routine 12/27/2018 4:04 PM CDT URINALYSIS W/REFLEX MICROSCOPIC Routine 12/27/2018 12:11 PM CDT EKG 12-LEAD Routine 12/27/2018 11:41 AM CDT HEMOGLOBIN AND HEMATOCRIT Routine 12/27/2018 7:04 AM CDT CBC WITH DIFFERENTIAL Routine 12/27/2018 7:04 AM CDT HEMOGLOBIN AND HEMATOCRIT Routine 12/27/2018 12:31 AM CDT CBC WITH DIFFERENTIAL Stat 12/26/2018 7:33 PM CDT URINALYSIS W/REFLEX MICROSCOPIC Stat 12/26/2018 7:33 PM CDT HCG QUALITATIVE, URINE Stat 9 7:33 PM CDT LIPASE Stat 12/26/2018 7:33 PM CDT COMPREHENSIVE METABOLIC PANEL Stat 12/26/2018 7:33 PM CDT documented in this encounter Results * TSH REFLEXIVE (12/29/2018 7:34 AM CDT) TSH 3.32 0.27 - 4.20 uIU/mL 12/29/2018 9:22 AM CDT [facility] Blood Venipuncture / Unknown 12/29/2018 7:34 AM CDT 12/29/2018 7:54 AM CDT Carlos Jordan MD CHEMISTRY ORDERABLES [facility] - [facility] CLIA# [id number] [address] [facility] [place] [address] * (ABNORMAL) COMPREHENSIVE METABOLIC PANEL (12/29/2018 7:34 AM CDT) Pathologist [facility] SODIUM 141 136 - 145 mmol/L 12/29/2018 9:03 AM [facility]AT[facility] - [facility] POTASSIUM 3.9 3.5 - 5.0 mmol/L 12/29/2018 9:03 AM [facility] - [facility] CHLORIDE 107 98 - 107 mmol/L 12/29/2018 9:03 AM [facility] CO2 22 22 - 29 mmol/L 12/29/2018 9:03 AM T [facility] - [facility] CALCIUM 8.3(L) 8.6 - 10.2 mg/dL 12/29/2018 9:03 AM [facility] - [facility] BUN 3(L) 6 - 20 mg/dL 12/29/2018 9:03 AM [facility] - [facility] CREATININE 1.00(H) 0.51 - 0.95 mg/dL 12/29/2018 9:03 AM [facility] - [facility] GLUCOSE 82 74 - 99 mg/dL 12/29/2018 9:03 AM T [facility] - [facility] TOTAL PROTEIN 6.5(L) 6.7 - 8.6 g/dL 12/29/2018 9:03 AM [facility] [employer] [facility] [employer] [facility]AT[facility] - [facility] ALBUMIN 3.7 3.5 - 5.2 g/dL 12/29/2018 9:03 AM [facility] [employer] [facility] - [facility] BILIRUBIN TOTAL 0.3 0.3 - 1.2 mg/dL 12/29/2018 9:03 AM [facility] [employer] [facility] - [facility] ALKALINE PHOSPHATASE 75 35 - 104 U/L 12/29/2018 9:03 AM [facility] AST 14 <33 U/L 12/29/2018 9:03 AM [facility] ALT 17 <34 U/L 12/29/2018 9:03 AM [facility] GFR 60 >=60 mL/min/1.7 3 sq meter 12/29/2018 9:03 AM [facility] Comment: eGFR has not been validated for use in the elderly (> 70 years of age), women, patients with serious co-morbid conditions, or persons with extremes of body size or muscle mass and should also be interpreted with caution in patients with acute kidney failure, dialysis dependent patients, patients reporting exceptional dietary intake (e.g. vegetarian diet, high protein diets, creatine supplementation), and patients with severe liver disease. Based on National Kidney Disease Education Program If patient is , please refer to the GFR result. GFR, >60 >=60 mL/min/1.7 3 sq meter 12/29/2018 9:03 AM [facility] ANION GAP 12 8 - 16 mmol/L 12/29/2018 9:03 AM [facility] Blood Venipuncture / Unknown 12/29/2018 7:34 AM CDT 12/29/2018 7:54 AM [facility] - 12/29/2018 9:03 AM CDT Samples containing indocyanine green cause interferences on Total and/or Direct Bilirubin and must not be measured. Carlos Jordan MD CHEMISTRY ORDERABLES [facility] [id number] 5 [address] [place] [address] * (ABNORMAL) CBC WITH DIFFERENTIAL (12/29/2018 7:34 AM CDT) WBC 4.7 4.0 - 9.8 K/uL 12/29/2018 8:18 AM [facility] [employer] [facility] RBC 4.28 3.90 - 4.90 M/uL 12/29/2018 8:18 AM CDT [facility]AT[facility] - [facility] HEMOGLOBIN 10.0(L) 11.8 - 14.8 g/dL 12/29/2018 8:18 AM CDT [facility] - [facility] HEMATOCRIT 34.5(L) 35.5 - 44.0 % 12/29/2018 8:18 AM CDT [facility] - [facility] MCV 80.6(L) 82.0 - 99.0 fL 12/29/2018 8:18 AM CDT [facility] - [facility] MCH 23.4(L) 27.2 - 32.6 pg 12/29/2018 8:18 AM CDT [facility] - [facility] MCHC 29.0(L) 31.5 - 35.5 g/dL 12/29/2018 8:18 AM CDT [facility] - [facility] RDW 17.0(H) 11.5 - 14.5 % 12/29/2018 8:18 AM CDT [facility] - [facility] RDW-STDEV 49.4(H) 37.1 - 48.7 fL 12/29/2018 8:18 AM CDT [employer] [facility] LABORATORY SERVICES - [facility] PLATELETS 354(H) 140 - 350 K/uL 12/29/2018 8:18 AM CDT [employer] LABORATORY SERVICES - [facility] MPV 9.2(L) 9.3 - 12.4 fL 12/29/2018 8:18 AM CDT [employer] LABORATORY SERVICES - [facility] NEUTROPHILS 53 % 12/29/2018 8:18 AM CDT [employer] [facility] LABORATORY SERVICES - [facility] LYMPHOCYTES 35 % 12/29/2018 8:18 AM CDT [facility] LABORATORY SERVICES - . [place] MONOCYTES 9 % 12/29/2018 8:18 AM CDT [facility] LABORATORY SERVICES - [facility] EOSINOPHILS 2 % 12/29/2018 8:18 AM CDT [employer] [facility] LABORATORY SERVICES - . [place] BASOPHILS 1 % 12/29/2018 8:18 AM CDT [employer] LABORATORY SERVICES - . [facility] IMMATURE GRANULOCYTES 0 % 12/29/2018 8:18 AM CDT [employer] LABORATORY SERVICES - [facility] NEUTROPHIL ABSOLUTE 2.48 1.90 - 7.00 K/uL 12/29/2018 8:18 AM CDT [facility] - [facility] LYMPHOCYTE ABSOLUTE 1.65 0.70 - 4.50 K/uL 12/29/2018 8:18 AM CDT [facility] LABORATORY [facility] - [facility] MONOCYTE ABSOLUTE 0.43 0.10 - 1.30 K/uL 12/29/2018 8:18 AM CDT [facility] LABORATORY [facility] - [facility] EOSINOPHIL ABSOLUTE 0.07 0.00 - 0.70 K/uL 12/29/2018 8:18 AM CDT [facility] LABORATORY [facility] - [facility] BASOPHILS ABSOLUTE 0.04 0.00 - 0.20 K/uL 12/29/2018 8:18 AM CDT [facility] LABORATORY [facility] - [facility] IMMATURE GRANULOCYTES ABSOLUTE 0.01 0.00 - 0.03 K/uL 12/29/2018 8:18 AM [facility] LABORATORY [facility] Blood Venipuncture / Unknown 12/29/2018 7:34 AM CDT 12/29/2018 7:54 AM CDT Carlos Jordan MD HEMATOLOGY ORDERABLE S [facility]# [id number] 5 [facility] [place] [address] * CTA ABD PELVIS W AND/OR WO CONTRAST (12/28/2018 6:51 PM CDT) Anatomical Region Laterality Modality Abdomen Computed Tomogra phy 12/28/2018 2:30 PM CDT Narrative 12/29/2018 7:[address] ANGIOGRAPHY OF THE ABDOMEN AND PELVIS WITH AND WITHOUT IV CONTRAST DATE: 12/28/2018 6:51 PM HISTORY: ??Severe abdominal pain. COMPARISON: Outside CT of the abdomen and pelvis 12/25/2018 PROCEDURE: Contrast-enhanced CT angiography of the abdomen and pelvis was performed with 120 ml of Isovue-300. Volume Rendered (VR) images, Maximum Intensity Projection ??(MIP) images and curved-plane reformatted images were created on a 3-D Postprocessing workstation. The examination was performed with the adjustment of mA according to the patient size and/or the use of Iterative Reconstruction Technique. CT dose length product 770.33 mGy-cm. Vascular Findings: Aorta: Normal. Celiac trunk: Normal. Left gastric artery: Normal. Splenic artery: Normal. Hepatic and pancreaticoduodenal branches: Normal. SMA: Normal. Right renal artery(ies): Single. Normal. Left renal artery(ies): Single. Normal. EMMANUEL: Normal. Right common iliac artery: Normal. Right internal iliac artery: Normal. Right external iliac artery: Normal. Right femoral bifurcation: Normal. Left common iliac artery: Normal. Left internal iliac artery: Normal. Left external iliac artery: Normal. Left femoral bifurcation: Normal. Contrast CT of the Abdomen and Pelvis: Nonvascular Findings: Lungs: Minor areas of bilateral basilar atelectasis. Pulmonary arteries: No pulmonary emboli. Pericardial effusion: None. Pleural effusion: None. Cardiac anatomy: Unremarkable. Esophagus: Normal. Stomach: Tiny hiatal hernia. Duodenum: Normal. Small bowel: Normal. Liver: 8 and 5 mm hemangiomas in segment 5. Gallbladder: Normal. Portacaval lymph nodes: None. Pancreas: Normal. Spleen: Scattered granulomatous calcifications. Adrenal glands: Normal. Kidneys: Symmetric corticomedullary opacification. Bilateral small nonobstructive nephroliths. Ureters: Nonobstructed. Retroperitoneal adenopathy: None. Appendix: Unremarkable. Colon: Minor diverticula of the mid sigmoid colon. The uterus and ovaries are unremarkable. The bladder is decompressed. No evidence of ascites or pneumoperitoneum. Osseous pathology: None. IMPRESSION Negative CT angiography of the abdomen and pelvis. No evidence of mesenteric ischemia or acute intra-abdominal process. Tiny nephroliths in both kidneys with no evidence of obstruction. The examination was performed with the adjustment of mA according to the patient size and/or the use of Iterative Reconstruction Technique. Dictated by Dr. Marbin Roberts ? DICTATION LOCATION: 1 Procedure Note Marbin Roberts MD - 12/29/2018 CT ANGIOGRAPHY OF THE ABDOMEN AND PELVIS WITH AND WITHOUT IV CONTRAST DATE: 12/28/2018 6:51 PM HISTORY: Severe abdominal pain. COMPARISON: Outside CT of the abdomen and pelvis 12/25/2018 PROCEDURE: Contrast-enhanced CT angiography of the abdomen and pelvis was performed with 120 ml of Isovue-300. Volume Rendered (VR) images, Maximum Intensity Projection (MIP) images and curved-plane reformatted images were created on a 3-D Postprocessing workstation. The examination was performed with the adjustment of mA according to the patient size and/or the use of Iterative Reconstruction Technique. CT dose length product 770.33 mGy-cm. Vascular Findings: Aorta: Normal. Celiac trunk: Normal. Left gastric artery: Normal. Splenic artery: Normal. Hepatic and pancreaticoduodenal branches: Normal. SMA: Normal. Right renal artery(ies): Single. Normal. Left renal artery(ies): Single. Normal. EMMANUEL: Normal. Right common iliac artery: Normal. Right internal iliac artery: Normal. Right external iliac artery: Normal. Right femoral bifurcation: Normal. Left common iliac artery: Normal. Left internal iliac artery: Normal. Left external iliac artery: Normal. Left femoral bifurcation: Normal. Contrast CT of the Abdomen and Pelvis: Nonvascular Findings: Lungs: Minor areas of bilateral basilar atelectasis. Pulmonary arteries: No pulmonary emboli. Pericardial effusion: None. Pleural effusion: None. Cardiac anatomy: Unremarkable. Esophagus: Normal. Stomach: Tiny hiatal hernia. Duodenum: Normal. Small bowel: Normal. Liver: 8 and 5 mm hemangiomas in segment 5. Gallbladder: Normal. Portacaval lymph nodes: None. Pancreas: Normal. Spleen: Scattered granulomatous calcifications. Adrenal glands: Normal. Kidneys: Symmetric corticomedullary opacification. Bilateral small nonobstructive nephroliths. Ureters: Nonobstructed. Retroperitoneal adenopathy: None. Appendix: Unremarkable. Colon: Minor diverticula of the mid sigmoid colon. The uterus and ovaries are unremarkable. The bladder is decompressed. No evidence of ascites or pneumoperitoneum. Osseous pathology: None. IMPRESSION Negative CT angiography of the abdomen and pelvis. No evidence of mesenteric ischemia or acute intra-abdominal process. Tiny nephroliths in both kidneys with no evidence of obstruction. The examination was performed with the adjustment of mA according to the patient size and/or the use of Iterative Reconstruction Technique. Dictated by Dr. Marbin Roberts DICTATION LOCATION: [address] ORDERABLES * (ABNORMAL) HEMOGLOBIN AND HEMATOCRIT (12/28/2018 3:51 PM CDT) HEMOGLOBIN 10.6(L) 11.8 - 14.8 g/dL 12/28/2018 4:03 PM CDT [facility] - [facility] HEMATOCRIT 36.6 35.5 - 44.0 % 12/28/2018 4:03 PM CDT [facility] LABORATORY SERVICES - [facility] Blood Venipuncture / Unknown 12/28/2018 3:51 PM CDT 12/28/2018 3:54 PM CDT Carlos Jordan MD HEMATOLOGY ORDERABLE S Performing Organization Address City/Va Hospital/ZIP Co de Phone Number [facility]# [id number] [address] [place] [address] * LIPASE (12/28/2018 8:09 AM CDT) Pathologist [facility] LIPASE 50 13 - 60 U/L 12/28/2018 1:02 PM T [facility] LABORATORY SERVICES [facility] Blood Venipuncture / Unknown 12/28/2018 8:09 AM CDT 12/28/2018 8:27 AM CDT Carlos Jordan MD CHEMISTRY ORDERABLES [facility] [employer] [facility] CLIA# [id number] [address] [place] [address] * (ABNORMAL) COMPREHENSIVE METABOLIC PANEL (12/28/2018 8:09 AM CDT) SODIUM 139 136 - 145 mmol/L 12/28/2018 9:01 AM T [facility] LABORATORY SERVICES - [facility] POTASSIUM 4.1 3.5 - 5.0 mmol/L 12/28/2018 9:01 AM T [facility] LABORATORY SERVICES [facility] CHLORIDE 108(H) 98 - 107 mmol/L 12/28/2018 9:01 AM T [facility] LABORATORY SERVICES [facility] CO2 23 22 - 29 mmol/L 12/28/2018 9:01 AM T [facility] LABORATORY SERVICES - [facility] CALCIUM 8.2(L) 8.6 - 10.2 mg/dL 12/28/2018 9:01 AM T [facility] LABORATORY SERVICES - [facility] BUN 6 6 - 20 mg/dL 12/28/2018 9:01 AM [facility] [employer] [facility] - [facility] CREATININE 0.99(H) 0.51 - 0.95 mg/dL 12/28/2018 9:01 AM [facility] [employer] LABORATORY [facility] - . [facility] GLUCOSE 88 74 - 99 mg/dL 12/28/2018 9:01 AM [facility] [employer] LABORATORY [facility] - . [facility] TOTAL PROTEIN 6.7 6.7 - 8.6 g/dL 12/28/2018 9:01 AM [facility] [employer] [facility] - . [facility] ALBUMIN 3.7 3.5 - 5.2 g/dL 12/28/2018 9:01 AM [facility] [employer] [facility]. [facility] BILIRUBIN TOTAL 0.2(L) 0.3 - 1.2 mg/dL 12/28/2018 9:01 AM [facility] [employer] [facility] - . [facility] ALKALINE PHOSPHATASE 71 35 - 104 U/L 12/28/2018 9:01 AM [facility] [employer] [facility] - . [facility] AST 13 <33 U/L 12/28/2018 9:01 AM [facility] [employer] [facility] - . [facility] ALT 9 <34 U/L 12/28/2018 9:01 AM [facility] [employer] [facility] - [facility] GFR >60 >=60 mL/min/1.7 3 sq meter 12/28/2018 9:01 AM [facility] [employer] [facility] Comment: eGFR has not been validated for use in the elderly (> 70 years of age), women, patients with serious co-morbid conditions, or persons with extremes of body size or muscle mass and should also be interpreted with caution in patients with acute kidney failure, dialysis dependent patients, patients reporting exceptional dietary intake (e.g. vegetarian diet, high protein diets, creatine supplementation), and patients with severe liver disease. Based on National Kidney Disease Education Program If patient is , please refer to the GFR result. GFR, >60 >=60 mL/min/1.7 3 sq meter 12/28/2018 9:01 AM [facility] [employer] [facility] ANION GAP 8 8 - 16 mmol/L 12/28/2018 9:01 AM [facility] [employer] [facility] Blood Venipuncture / Unknown 12/28/2018 8:09 AM CDT 12/28/2018 8:27 AM CDT [facility] LABORATORY SERVICES - [facility] - 12/28/2018 9:01 AM CDT Samples containing indocyanine green cause interferences on Total and/or Direct Bilirubin and must not be measured. Carlos Jordan MD CHEMISTRY ORDERABLES [facility] CLIA# [id number] 5 [facility] [place] [address] * (ABNORMAL) CBC WITH DIFFERENTIAL (12/28/2018 8:09 AM CDT) WBC 6.5 4.0 - 9.8 K/uL 12/28/2018 8:33 AM [facility] RBC 4.26 3.90 - 4.90 M/uL 12/28/2018 8:33 AM [facility] HEMOGLOBIN 10.4(L) 11.8 - 14.8 g/dL 12/28/2018 8:33 AM [facility] LABORATORY [facility] HEMATOCRIT 34.9(L) 35.5 - 44.0 % 12/28/2018 8:33 AM [facility] LABORATORY [facility] MCV 81.9(L) 82.0 - 99.0 fL 12/28/2018 8:33 AM [facility] MCH 24.4(L) 27.2 - 32.6 pg 12/28/2018 8:33 AM [facility] LABORATORY [facility] MCHC 29.8(L) 31.5 - 35.5 g/dL 12/28/2018 8:33 AM [facility] [employer] [facility] RDW 17.0(H) 11.5 - 14.5 % 12/28/2018 8:33 AM [facility] LABORATORY [facility] RDW-STDEV 50.5(H) 37.1 - 48.7 fL 12/28/2018 8:33 AM [facility] LABORATORY [facility] PLATELETS 354(H) 140 - 350 K/uL 12/28/2018 8:33 AM CDT [employer] LABORATORY SERVICES - [facility] MPV 8.9(L) 9.3 - 12.4 fL 12/28/2018 8:33 AM CDT [facility] - [facility] NEUTROPHILS 64 % 12/28/2018 8:33 AM CDT [facility] LABORATORY SERVICES - [facility] LYMPHOCYTES 27 % 12/28/2018 8:33 AM CDT [facility] LAB[facility]AT[facility] SERVICES - [facility] MONOCYTES 7 % 12/28/2018 8:33 AM CDT [facility] LAB[facility]ATORY SERVICES - [facility] EOSINOPHILS 1 % 12/28/2018 8:33 AM CDT [facility] LABORATORY SERVICES - [facility] BASOPHILS 1 % 12/28/2018 8:33 AM CDT [facility] LABORATORY SERVICES - [facility] IMMATURE GRANULOCYTES 1 % 12/28/2018 8:33 AM T [facility] LABORATORY SERVICES - . [facility] Comment:IG (Immature Granulo cyte) count includes Metamyelocytes, Myelocytes, and Promyelocytes NEUTROPHIL ABSOLUTE 4.19 1.90 - 7.00 K/uL 12/28/2018 8:33 AM CDT [facility] LABORATORY SERVICES - [facility] LYMPHOCYTE ABSOLUTE 1.72 0.70 - 4.50 K/uL 12/28/2018 8:33 AM CDT [facility] LABORATORY SERVICES - [facility] MONOCYTE ABSOLUTE 0.43 0.10 - 1.30 K/uL 12/28/2018 8:33 AM CDT [facility] LABORATORY SERVICES - [facility] EOSINOPHIL ABSOLUTE 0.07 0.00 - 0.70 K/uL 12/28/2018 8:33 AM CDT [facility] LABORATORY SERVICES - [facility] BASOPHILS ABSOLUTE 0.06 0.00 - 0.20 K/uL 12/28/2018 8:33 AM CDT [facility] LABORATORY SERVICES - . [facility] IMMATURE GRANULOCYTES ABSOLUTE 0.03 0.00 - 0.03 K/uL 12/28/2018 8:33 AM T [facility] LABORATORY SERVICES - [facility] Blood Venipuncture / Unknown 12/28/2018 8:09 AM CDT 12/28/2018 8:28 AM CDT Carlos Jordan MD HEMATOLOGY ORDERABLE S [facility] [employer] SERVICES - [facility] CLIA# [id number] [address] [place] [address] * (ABNORMAL) HEMOGLOBIN AND HEMATOCRIT (12/27/2018 11:41 PM CDT) HEMOGLOBIN 9.8(L) 11.8 - 14.8 g/dL 12/28/2018 12:19 AM CDT [facility] HEMATOCRIT 33.1(L) 35.5 - 44.0 % 12/28/2018 12:19 AM CDT [facility] LABORATORY [facility] Blood Venipuncture / Unknown 12/27/2018 11:41 PM CDT 12/28/2018 12:13 AM CDT Carlos Jordan MD HEMATOLOGY ORDERABLE S [facility] CLIA# [id number] [address] [place] [address] * (ABNORMAL) HEMOGLOBIN AND HEMATOCRIT (12/27/2018 4:04 PM CDT) HEMOGLOBIN 11.0(L) 11.8 - 14.8 g/dL 12/27/2018 4:30 PM CDT [facility] HEMATOCRIT 37.2 35.5 - 44.0 % 12/27/2018 4:30 PM CDT [facility] Blood Venipuncture / Unknown 12/27/2018 4:04 PM CDT 12/27/2018 4:11 PM CDT Carlos Jordan MD HEMATOLOGY ORDERABLE S [facility] CLIA# [id number] [address] [place] [address] * URINALYSIS WITH REFLEX MICROSCOPIC (12/27/2018 12:11 PM CDT) COLOR UA Yellow Pale to Dark Yellow 12/27/2018 12:53 PM CDT [facility] LABORATORY SERVICES - [facility] CLARITY UA Clear Clear 12/27/2018 12:53 PM CDT [facility] LABORATORY SERVICES - [facility] SPECIFIC GRAVITY UA 1.011 1.003 - 1.035 12/27/2018 12:53 PM CDT [employer] LABORATORY SERVICES - [facility] PH UA 6.0 5.0 - 8.0 12/27/2018 12:53 PM CDT [employer] LABORATORY SERVICES - [facility] LEUKOCYTE ESTERASE UA Negative Negative 12/27/2018 12:53 PM CDT [facility] LABORATORY SERVICES - [facility] NITRITE UA Negative Negative 12/27/2018 12:53 PM CDT [employer] LABORATORY SERVICES - [facility] PROTEIN UA Negative Negative 12/27/2018 12:53 PM CDT [employer] LABORATORY SERVICES - [facility] GLUCOSE UA Negative Negative 12/27/2018 12:53 PM CDT [employer] LABORATORY SERVICES - [facility] KETONES UA Negative Negative 12/27/2018 12:53 PM CDT [facility] LABORATORY SERVICES - [facility] UROBILINOGEN UA Normal <2.0 mg/dL 9 12:53 PM CDT [facility] LABORATORY SERVICES - [facility] BILIRUBIN UA Negative Negative 12/27/2018 12:53 PM CDT [facility] LABORATORY SERVICES - [facility] BLOOD UA Negative Negative 12/27/2018 12:53 PM CDT [employer] LABORATORY SERVICES - [facility] Urine URINE SPECIMEN OBTAINED BY CLEAN CATCH PROCEDURE / Unknown Collection / Unknown 12/27/2018 12:11 PM CDT 12/27/2018 12:39 PM CDT Carlos Jordan MD URINE ORDERABLES [facility] LABORATORY SERVICES - [facility]# [id number] [address] [facility] [place] [address] * EKG 12-LEAD (12/27/2018 11:41 AM CDT) 12/27/2018 11:4 1 AM CDT Narrative INTERFACE SYSTEM - 12/28/2018 2:50 PM CDT ? Stationary ECG Study ? [facility] ? Test Date: ?12/27/2018 11:41 AM Pat Name: ? JULIAN SAUER ?Department: ?? 45 ?Room: ? 7308 1 Gender: ? F ?[employer] Wiring Technician: ?? djm : ?1975 ? Requested By: BINH CHOUDHURY Order Number: [id number] ?Reading MD: ?? Vince Hodgeyr ? Measurements Intervals ?West ? Rate: ? 83 ? P: ?30 [place]: ? 139 ?QRS: ?32 QRSD: ? 89 ? T: ?21 QT: ? 387 ? QTc: ?455 ? Interpretive Statements ? Sinus rhythm Electronically Signed On 12-28-2018 14:50:02 CDT by Vince Amezcua Procedure Note Vince Amezcua MD - 06/07/2021 Stationary ECG Study [facility] Test Date: 12/27/2018 11:41 AM Pat Name: JULIAN SAUER Department: Room: [facility] Gender: F [employer] Wiring Technician: rian : 1975 Requested By: BINH CHOUDHURY Order Number: [id number] Ric MD: Vince Amezcua Measurements Intervals West Rate: 83 P: 30 [place]: 139 QRS: 32 QRSD: 89 T: 21 QT: 387 QTc: 455 Interpretive Statements Sinus rhythm Electronically Signed On 12-28-2018 14:50:02 CDT by Vince Amezcua Carlos Jordan MD ECG ORDERABLES Performing Organization Address City/State/[facility] Co de Phone Number INTERFACE SYSTEM Refer to clinic/hospital department * (ABNORMAL) CBC WITH DIFFERENTIAL (12/27/2018 7:04 AM CDT) [facility] WBC 7.1 4.0 - 9.8 K/uL 12/27/2018 8:38 AM CDT [facility] RBC 4.24 3.90 - 4.90 M/uL 12/27/2018 8:38 AM CDT [facility] HEMOGLOBIN 10.3(L) 11.8 - 14.8 g/dL 12/27/2018 8:38 AM CDT [facility] HEMATOCRIT 34.8(L) 35.5 - 44.0 % 12/27/2018 8:38 AM CDT [facility] LABORATORY SERVICES - [facility] MCV 82.1 82.0 - 99.0 fL 12/27/2018 8:38 AM CDT [employer] LABORATORY SERVICES - [facility] MCH 24.3(L) 27.2 - 32.6 pg 12/27/2018 8:38 AM CDT [employer] LABORATORY SERVICES - [facility] MCHC 29.6(L) 31.5 - 35.5 g/dL 12/27/2018 8:38 AM CDT [employer] LABORATORY SERVICES - . [facility] RDW 17.2(H) 11.5 - 14.5 % 12/27/2018 8:38 AM CDT [employer] LABORATORY SERVICES - . [facility] RDW-STDEV 51.4(H) 37.1 - 48.7 fL 12/27/2018 8:38 AM CDT [employer] LABORATORY SERVICES - . [facility] PLATELETS 346 140 - 350 K/uL 12/27/2018 8:38 AM CDT [employer] LABORATORY SERVICES - . [facility] MPV 9.1(L) 9.3 - 12.4 fL 12/27/2018 8:38 AM CDT [employer] LABORATORY SERVICES - [facility] NEUTROPHILS 59 % 12/27/2018 8:38 AM CDT [employer] LABORATORY SERVICES - [facility] LYMPHOCYTES 32 % 12/27/2018 8:38 AM CDT [employer] LABORATORY SERVICES - [facility] MONOCYTES 7 % 12/27/2018 8:38 AM CDT [employer] LABORATORY SERVICES - [facility] EOSINOPHILS 1 % 12/27/2018 8:38 AM CDT [employer] LABORATORY SERVICES - [facility] BASOPHILS 1 % 12/27/2018 8:38 AM CDT [employer] LABORATORY SERVICES - [facility] IMMATURE GRANULOCYTES 0 % 12/27/2018 8:38 AM CDT [facility] LABORATORY SERVICES - [facility] NEUTROPHIL ABSOLUTE 4.15 1.90 - 7.00 K/uL 12/27/2018 8:38 AM CDT [facility] LABORATORY SERVICES - [facility] LYMPHOCYTE ABSOLUTE 2.28 0.70 - 4.50 K/uL 12/27/2018 8:38 AM CDT [facility] LABORATORY SERVICES - [facility] MONOCYTE ABSOLUTE 0.49 0.10 - 1.30 K/uL 12/27/2018 8:38 AM CDT [facility] LABORATORY SERVICES - [facility] EOSINOPHIL ABSOLUTE 0.08 0.00 - 0.70 K/uL 12/27/2018 8:38 AM CDT [facility] LABORATORY SERVICES - [facility] BASOPHILS ABSOLUTE 0.07 0.00 - 0.20 K/uL 12/27/2018 8:38 AM CDT [facility] LABORATORY SERVICES - . [facility] IMMATURE GRANULOCYTES ABSOLUTE 0.03 0.00 - 0.03 K/uL 12/27/2018 8:38 AM CDT [employer] LABORATORY SERVICES - [facility] Blood Venipuncture / Unknown 12/27/2018 7:04 AM CDT 12/27/2018 7:15 AM CDT Carlos Jordan MD HEMATOLOGY ORDERABLE S [facility] LABORATORY [facility] CLIA# [id number] [address] [place] [address] * (ABNORMAL) HEMOGLOBIN AND HEMATOCRIT (12/27/2018 7:04 AM CDT) HEMOGLOBIN 10.4(L) 11.8 - 14.8 g/dL 12/27/2018 7:44 AM CDT [facility] LABORATORY SERVICES - [facility] HEMATOCRIT 35.1(L) 35.5 - 44.0 % 12/27/2018 7:44 AM CDT [employer] LABORATORY SERVICES - [facility] Blood Venipuncture / Unknown 12/27/2018 7:04 AM CDT 12/27/2018 7:15 AM CDT Carlos Jordan MD HEMATOLOGY ORDERABLE S [facility] [employer] [facility] CLIA# [id number] [address] [place] [address] * (ABNORMAL) HEMOGLOBIN AND HEMATOCRIT (12/27/2018 12:31 AM CDT) HEMOGLOBIN 10.4(L) 11.8 - 14.8 g/dL 12/27/2018 12:49 AM CDT [employer] LABORATORY SERVICES [facility] HEMATOCRIT 35.1(L) 35.5 - 44.0 % 12/27/2018 12:49 AM CDT [facility] LABORATORY [facility] Blood Venipuncture / Unknown 12/27/2018 12:31 AM CDT 12/27/2018 12:34 AM CDT Carlos Jordan MD HEMATOLOGY ORDERABLE S [facility] CLIA# [id number] [address] [place] [address] * (ABNORMAL) LIPASE (12/26/2018 7:33 PM CDT) LIPASE 67(H) 13 - 60 U/L 12/26/2018 9:15 PM CDT [facility] Blood Venipuncture / Unknown 12/26/2018 7:33 PM CDT 12/26/2018 7:38 PM CDT Binh Choudhury DO CHEMISTRY ORDERABLES Performing Organization Address [facility]/ZIP Co de Phone Number [facility] CLIA# [id number] [address] [place] [address] * HCG QUALITATIVE, URINE (12/26/2018 7:33 PM CDT) HCG QUAL URINE Negative Negative 12/26/2018 8:43 PM CDT [facility] COLOR UA Yellow Pale to Dark Yellow 12/26/2018 8:43 PM CDT [facility] CLARITY UA Clear Clear 12/26/2018 8:43 PM CDT [facility] Urine URINE SPECIMEN OBTAINED BY CLEAN CATCH PROCEDURE / Unknown Collection / Unknown 12/26/2018 7:33 PM CDT 12/26/2018 7:48 PM CDT Binh Choudhury DO URINE ORDERABLES Performing Organization Address City/[facility]/ZIP Co de Phone Number [facility] CLIA# [id number] [address] [facility] [place] [id number] * (ABNORMAL) URINALYSIS WITH REFLEX MICROSCOPIC (12/26/2018 7:33 PM CDT) COLOR UA Yellow Pale to Dark Yellow 12/26/2018 8:30 PM CDT [facility] CLARITY UA Clear Clear 12/26/2018 8:30 PM CDT [facility] SPECIFIC GRAVITY UA 1.020 1.003 - 1.035 12/26/2018 8:30 PM CDT [facility] PH UA 6.0 5.0 - 8.0 12/26/2018 8:30 PM CDT [facility] LEUKOCYTE ESTERASE UA 1+(A) Negative 12/26/2018 8:30 PM T [facility] NITRITE UA Negative Negative 12/26/2018 8:30 PM CDT [facility] PROTEIN UA 1+(A) Negative 12/26/2018 8:30 PM CDT [facility] - . [facility] GLUCOSE UA Negative Negative 12/26/2018 8:30 PM CDT [facility] - [facility] KETONES UA Negative Negative 12/26/2018 8:30 PM CDT [facility] - . [facility] UROBILINOGEN UA Normal <2.0 mg/dL 9 8:30 PM CDT [facility] BILIRUBIN UA Negative Negative 12/26/2018 8:30 PM CDT [facility] - . [facility] BLOOD UA Negative Negative 12/26/2018 8:30 PM CDT [facility] WBC UA 3-5(A) 0 - 2 /hpf 12/26/2018 8:30 PM CDT [facility] RBC UA 3-5(A) 0 - 2 /hpf 12/26/2018 8:30 PM CDT [facility] BACTERIA UA 1+(A) Negative /hpf 12/26/2018 8:30 PM CDT [facility] - . [facility] EPITHELIAL CELLS, URINE 6-10(A) 0 - 5 /hpf 12/26/2018 8:30 PM CDT [facility] [place] YEAST, BUDD[place] Present(A) Absent 12/26/2018 8:30 PM CDT [id number] Comment:Results confirmed by 2nd methodology. Urine URINE SPECIMEN OBTAINED BY CLEAN CATCH PROCEDURE / Unknown Collection / Unknown 12/26/2018 7:33 PM CDT 12/26/2018 7:47 PM CDT Binh Santiagorobertgui DO URINE ORDERABLES [facility] CLIA# [id number] [address] [facility] [place] [id number] * (ABNORMAL) COMPREHENSIVE METABOLIC PANEL (12/26/2018 7:33 PM CDT) SODIUM 136 136 - 145 mmol/L 12/26/2018 8:16 PM CDT [email or web address] POTASSIUM 5.4(H) 3.5 - 5.0 mmol/L 12/26/2018 8:16 PM T [facility] - [facility] Comment:Moderate hemolysis p resent. Can cause significant falsely elevated result. Redraw if indicated. CHLORIDE 104 98 - 107 mmol/L 12/26/2018 8:16 PM T [facility] - . [facility] CO2 18(L) 22 - 29 mmol/L 12/26/2018 8:16 PM CDT [facility] - . [facility] CALCIUM 8.7 8.6 - 10.2 mg/dL 12/26/2018 8:16 PM CDT [facility] BUN 11 6 - 20 mg/dL 12/26/2018 8:16 PM CDT [facility] CREATININE 0.95 0.51 - 0.95 mg/dL 12/26/2018 8:16 PM CDT [facility] GLUCOSE 82 74 - 99 mg/dL 12/26/2018 8:16 PM T [facility] - . [facility] TOTAL PROTEIN 7.6 6.7 - 8.6 g/dL 12/26/2018 8:16 PM CDT [facility] ALBUMIN 4.1 3.5 - 5.2 g/dL 12/26/2018 8:16 PM CDT [facility] BILIRUBIN TOTAL 0.2(L) 0.3 - 1.2 mg/dL 12/26/2018 8:16 PM [facility] ALKALINE PHOSPHATASE 78 35 - 104 U/L 12/26/2018 8:16 PM [facility] AST 27 <33 U/L 12/26/2018 8:16 PM [facility] Comment:Hemolysis present. R esult may be falsely elevated. ALT 11 <34 U/L 12/26/2018 8:16 PM [facility] Comment:Hemolysis present. R esult may be falsely elevated. GFR >60 >=60 mL/min/1.7 3 sq meter 12/26/2018 8:16 PM [facility] Comment: eGFR has not been validated for use in the elderly (> 70 years of age), women, patients with serious co-morbid conditions, or persons with extremes of body size or muscle mass and should also be interpreted with caution in patients with acute kidney failure, dialysis dependent patients, patients reporting exceptional dietary intake (e.g. vegetarian diet, high protein diets, creatine supplementation), and patients with severe liver disease. Based on National Kidney Disease Education Program If patient is , please refer to the GFR result. GFR, >60 >=60 mL/min/1.7 3 sq meter 12/26/2018 8:16 PM [facility] ANION GAP 14 8 - 16 mmol/L 12/26/2018 8:16 PM T [facility] Blood Venipuncture / Unknown 12/26/2018 7:33 PM CDT 12/26/2018 7:38 PM CDT [facility] - 12/26/2018 8:16 PM CDT Samples containing indocyanine green cause interferences on Total and/or Direct Bilirubin and must not be measured. Binh Choudhury DO CHEMISTRY ORDERABLES [facility] CLIA# [id number] [address] [place] [id number] * (ABNORMAL) CBC WITH DIFFERENTIAL (12/26/2018 7:33 PM CDT) [facility] WBC 10.9(H) 4.0 - 9.8 K/uL 12/26/2018 7:48 PM CDT [facility] RBC 4.93(H) 3.90 - 4.90 M/uL 12/26/2018 7:48 PM CDT [facility] HEMOGLOBIN 11.7(L) 11.8 - 14.8 g/dL 12/26/2018 7:48 PM CDT [facility] HEMATOCRIT 39.2 35.5 - 44.0 % 12/26/2018 7:48 PM CDT [facility] [place] MCV 79.5(L) 82.0 - 99.0 fL 12/26/2018 7:48 PM CDT [id number] [place] MCH 23.7(L) 27.2 - 32.6 pg 12/26/2018 7:48 PM CDT [facility] - . [facility] MCHC 29.8(L) 31.5 - 35.5 g/dL 12/26/2018 7:48 PM CDT [facility] [place] RDW 17.3(H) 11.5 - 14.5 % 12/26/2018 7:48 PM CDT [facility] - . [facility] RDW-STDEV 49.6(H) 37.1 - 48.7 fL 12/26/2018 7:48 PM CDT [facility] PLATELETS 427(H) 140 - 350 K/uL 12/26/2018 7:48 PM CDT [facility] MPV 9.1(L) 9.3 - 12.4 fL 12/26/2018 7:48 PM CDT [facility] NEUTROPHILS 65 % 12/26/2018 7:48 PM CDT [facility] LYMPHOCYTES 26 % 12/26/2018 7:48 PM CDT [facility] MONOCYTES 7 % 12/26/2018 7:48 PM CDT [facility] EOSINOPHILS 1 % 12/26/2018 7:48 PM CDT [facility] BASOPHILS 1 % 12/26/2018 7:48 PM CDT [facility] IMMATURE GRANULOCYTES 0 % 12/26/2018 7:48 PM CDT [facility] NEUTROPHIL ABSOLUTE 7.03(H) 1.90 - 7.00 K/uL 12/26/2018 7:48 PM CDT [facility] LYMPHOCYTE ABSOLUTE 2.86 0.70 - 4.50 K/uL 12/26/2018 7:48 PM CDT [facility] MONOCYTE ABSOLUTE 0.76 0.10 - 1.30 K/uL 12/26/2018 7:48 PM CDT [facility] EOSINOPHIL ABSOLUTE 0.08 0.00 - 0.70 K/uL 12/26/2018 7:48 PM CDT [facility] BASOPHILS ABSOLUTE 0.11 0.00 - 0.20 K/uL 12/26/2018 7:48 PM CDT [facility] IMMATURE GRANULOCYTES ABSOLUTE 0.04(H) 0.00 - 0.03 K/uL 12/26/2018 7:48 PM CDT [facility] Blood Venipuncture / Unknown 12/26/2018 7:33 PM CDT 12/26/2018 7:38 PM CDT Binh Choudhury DO HEMATOLOGY ORDERABLE S [facility] Organization Address City/State/ZIP Co de Phone Number [facility] - [facility]# [id number] [address] [place], [place] [address] [address] documented in this encounter Visit Diagnoses Diagnosis Diffuse abdominal pain- Primary Abdominal pain, unspecified site Abdominal pain, unspecified abdominal location Anemia, unspecified type 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 syndrome with both constipation and diarrhea Abdominal pain Abdominal pain, unspecified site Anemia Anemia, unspecified RA (rheumatoid arthritis) Rheumatoid arthritis Diverticulosis Diverticulosis of colon (without mention of hemorrhage) 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 syndrome with both constipation and diarrhea Medical cannabis use documented in this encounter Administered Medications Inactive Administered Medications - up to 3 most recent administrations Medication Order MAR Action Action Date Dose Rate Site ALPRAZolam (XANAX) tablet 0.5 mg 0.5 mg, Oral, ONE TIME ONLY, 1 dose, On 12/29/18 at 1400, Routine Given 12/29/2018 2:37 PM CDT 0.5 mg aluminum - magnesium - simethicone (MYLANTA) 200-200-20 mg/5 mL oral suspension 20 mL 20 mL, Oral, ONE TIME ONLY, 1 dose, On 12/28/18 at 1200, Routine Given 12/28/2018 11:50 AM CDT 20 mL azaTHIOprine (IMURAN) tablet 100 mg 100 mg, Oral, DAILY AT BEDTIME, First dose (after last modification) on 12/27/18 at 2100, Until Discontinued, Routine Given 12/28/2018 10:02 PM CDT 100 mg Given 12/27/2018 8:48 PM CDT 100 mg buPROPion HCl (WELLBUTRIN XL) SR 24 hour tablet 300 mg 300 mg, Oral, DAILY AT BEDTIME, First dose (after last modification) on 12/27/18 at 2100, Until Discontinued, Routine Given 12/28/2018 10:03 PM CDT 300 mg Given 12/27/2018 8:49 PM CDT 300 mg capsaicin (ZOSTRIX) 0.025 % topical cream Topical, FOUR TIMES DAILY, First dose on 12/27/18 at 1300, Until Discontinued, Routine Given 12/29/2018 8:42 AM CDT Abdomen, Left Lower Quadrant Given 12/28/2018 11:33 AM CDT A bdomen, Right Lower Quadrant Given 12/28/2018 8:43 AM CDT Ab domen, Right Lower Quadrant dicyclomine (BENTYL) capsule 10 mg 10 mg, Oral, EVERY 6 HOURS PRN, Starting on 12/27/18 at 1012, Until 12/29/18 at 1938, IBS, Routine Given 12/28/2018 12:56 PM CDT 10 mg Given 12/27/2018 3:37 PM CDT 10 mg DULoxetine (CYMBALTA) capsule 60 mg 60 mg, Oral, DAILY, First dose on 12/27/18 at 1200, Until Discontinued, Routine Given 12/29/2018 8:42 AM CDT 60 mg Given 12/28/2018 8:43 AM CDT 60 mg Given 12/27/2018 3:37 PM CDT 60 mg enoxaparin (LOVENOX) injection 40 mg 40 mg, subCUT, EVERY 24 HOURS (DAILY), First dose on 12/27/18 at 1200, Until Discontinued, Routine, Indication: Prophylaxis of VTE, Dose to be adjusted per facility protocol? Yes Given 12/29/2018 8:44 AM CDT 40 mg Abdomen, Right Lower Quadrant Given 12/28/2018 8:42 AM CDT 40 mg Ab domen, Right Upper Quadrant Given 12/27/2018 3:36 PM CDT 40 mg Ab domen, Left Lower Quadrant iohexol (OMNIPAQUE) 240 mg/mL oral solution 50 mL 50 mL, Oral, PRE-PROCEDURE ONCE, 1 dose, Starting on 12/28/18 at 1604, Until 12/28/18 at 1638, Routine Given 12/28/2018 4:38 PM CDT 50 mL iopamidol (ISOVUE-300) 61 % injection 100 mL 100 mL, IV, INTRA-PROCEDURE ONCE, 1 dose, Starting on 12/28/18 at 1855, Until 12/28/18 at 1856, Routine Contrast Given 12/28/2018 6:56 PM CDT 100 mL lidocaine (XYLOCAINE) 2 % viscous oral solution 10 mL 10 mL, Mouth/Throat, ONE TIME ONLY, 1 dose, On 12/28/18 at 1200, Routine Given 12/28/2018 11:51 AM CDT 10 mL LORazepam (ATIVAN) tablet 1 mg 1 mg, Oral, ONE TIME ONLY, 1 dose, On 12/28/18 at 1445, Routine Given 12/28/2018 3:45 PM CDT 1 mg lubiprostone (AMITIZA) capsule 24 mcg 24 mcg, Oral, TWO TIMES DAILY WITH MEALS, First dose on 12/27/18 at 1200, Until Discontinued, Routine Given 12/29/2018 8:44 AM CDT 24 mcg Given 12/28/2018 6:59 PM CDT 24 mcg Given 12/28/2018 8:43 AM CDT 24 mcg magnesium citrate oral solution 296 mL 296 mL, Oral, ONE TIME ONLY, 1 dose, On 12/27/18 at 1530, Routine Given 12/27/2018 6:50 PM CDT 296 mL morphine 4 mg/mL injection 4 mg 4 mg, IV, ONE TIME ONLY, 1 dose, On Sat12/26/18 at 2130, Routine Given 12/26/2018 9:21 PM CDT 4 mg morphine 4 mg/mL injection 4 mg 4 mg, IV, EVERY 3 HOURS PRN, Starting on Sat12/26/18 at 2324, Until Sat12/28/18 at 0717, Pain (See admin instructions), Routine Given 12/28/2018 3:24 AM CDT 4 mg Given 12/27/2018 11:54 PM CDT 4 mg Given 12/27/2018 7:16 PM CDT 4 mg morphine 4 mg/mL injection 4 mg 4 mg, IV, EVERY 4 HOURS PRN, Starting on Sat12/28/18 at 0730, Until 12/29/18 at 1044, Pain (See admin instructions), Routine Given 12/29/2018 8:38 AM CDT 4 mg Given 12/29/2018 4:30 AM CDT 4 mg Given 12/28/2018 11:42 PM CDT 4 mg morphine 4 mg/mL injection 4 mg 4 mg, IV, ONE TIME ONLY, 1 dose, On Sat12/28/18 at 1430, Routine Given 12/28/2018 2:30 PM CDT 4 mg ondansetron (ZOFRAN) 4 mg/2 mL injection 4 mg 4 mg, IV, ONE TIME ONLY, 1 dose, On Sat12/26/18 at 2115, Routine Given 12/26/2018 9:20 PM CDT 4 mg ondansetron (ZOFRAN) 4 mg/2 mL injection 4 mg 4 mg, IV, EVERY 6 HOURS PRN, Starting on Sat12/26/18 at 2324, Until Sat12/29/18 at 1938, Nausea/Emesis, Routine Given 12/28/2018 9:22 AM CDT 4 mg pantoprazole (PROTONIX) injection 40 mg 40 mg, IV, ONE TIME ONLY, 1 dose, On Sat12/26/18 at 2115, Routine Given 12/26/2018 9:22 PM CDT 40 mg pantoprazole (PROTONIX) injection 40 mg 40 mg, IV, ONE TIME ONLY, 1 dose, On Sat12/28/18 at 1200, Routine Given 12/28/2018 11:33 AM CDT 40 mg pantoprazole (PROTONIX) tablet 40 mg 40 mg, Oral, DAILY BEFORE BREAKFAST, First dose on Sat12/29/18 at 0730, Until Discontinued, Routine Given 12/29/2018 8:40 AM CDT 40 mg pregabalin (LYRICA) capsule 100 mg 100 mg, Oral, DAILY PRN, Starting on 12/27/18 at 1012, Until Sat12/29/18 at 1938, LBP, Routine Given 12/27/2018 3:37 PM CDT 100 mg sennosides-docusate sodium (SENNA-S) 8.6-50 mg per tablet 2 Tablet 2 Tablet, Oral, TWO TIMES DAILY, First dose on 12/27/18 at 1430, Until Discontinued, Routine Given 12/28/2018 10:02 PM CDT 2 Tablets Given 12/28/2018 8:42 AM CDT 2 Tablets Given 12/27/2018 8:48 PM CDT 2 Tablets sodium chloride 0.9% infusion IV, at 125 mL/hr, CONTINUOUS, Starting on Sat12/26/18 at 2115, Until Sat12/29/18 at 1938, Routine Rate Verify 12/29/2018 3:00 PM CDT 125 mL/hr Rate Verify 12/29/2018 2:00 PM CDT 125 mL/hr Rate Verify 12/29/2018 1:00 PM CDT 125 mL/hr sodium chloride flush injection 10 mL 10 mL, IV, SEE ADMIN INSTRUCTIONS, Starting on 12/28/18 at 1856, Until 12/28/18 at 2255, Routine Given 12/28/2018 6:56 PM CDT 10 mL traZODone (DESYREL) tablet 100 mg 100 mg, Oral, DAILY AT BEDTIME, First dose on Sat12/27/18 at 2100, Until Discontinued, Routine Given 12/28/2018 10:02 PM CDT 100 mg Given 12/27/2018 8:47 PM CDT 100 mg documented in this encounter Active and Recently Administered Medications Times are shown in CDT. Scheduled Medication Order 12/27/2018 12/28/2018 12/29/2018 ALPRAZolam (XANAX) tablet 0.5 mg (COMPLETED) 0.5 mg, Oral, ONE TIME ONLY, 1 dose, On Sat12/29/18 at 1400, Routine 1437 (Given - Provider: Gladis Shay RN) aluminum - magnesium - simethicone (MYLANTA) 200-200-20 mg/5 mL oral suspension 20 mL (COMPLETED)(Linked Group 1) 20 mL, Oral, ONE TIME ONLY, 1 dose, On 12/28/18 at 1200, Routine 1150 (Given - Provider: Marichuy Pineda RN) azaTHIOprine (IMURAN) tablet 100 mg 100 mg, Oral, DAILY AT BEDTIME, First dose (after last modification) on 12/27/18 at 2100, Until Discontinued, Routine 2047 (Given - Provider: Todd Walton RN) 220 (Given - Provider: Laurel Wu, ANTHONY) buPROPion HCl (WELLBUTRIN XL) SR 24 hour tablet 300 mg 300 mg, Oral, DAILY AT BEDTIME, First dose (after last modification) on 12/27/18 at 2100, Until Discontinued, Routine 2048 (Given - Provider: Todd Walton RN) 2202 (Given - Provider: Laurel Wu, ANTHONY) capsaicin (ZOSTRIX) 0.025 % topical cream (CANCELED) Topical, FOUR TIMES DAILY, First dose on 12/27/18 at 1300, Until Discontinued, Routine 1537 (Given - Provider: Kaitlynn Dorantes RN)1852 (Given - Provider: Kaitlynn Dorantes RN)2048 (Given - Provider: Todd Walton RN) 0843 (Given - Provider: Marichuy Pineda RN)1133 (Given - Provider: Marichuy Pineda RN)1300 (Canceled Entry - Provider: Marichuy Pineda RN)1800 (Refused - Provider: Marichuy Pineda RN)2100 (Refused - Provider: Laurel Wu RN) 0842 (Given - Provider: Gladis Shay, ANTHONY) DULoxetine (CYMBALTA) capsule 60 mg 60 mg, Oral, DAILY, First dose on 12/27/18 at 1200, Until Discontinued, Routine 1537 (Given - Provider: Kaitlynn Dorantes RN) 0843 (Given - Provider: Marichuy Pineda RN) 0842 (Given - Provider: Gladis Shay, ANTHONY) enoxaparin (LOVENOX) injection 40 mg 40 mg, subCUT, EVERY 24 HOURS (DAILY), First dose on 12/27/18 at 1200, Until Discontinued, Routine, Indication: Prophylaxis of VTE, Dose to be adjusted per facility protocol? Yes 1536 (Given - Provider: Kaitlynn Dorantes RN) 0842 (Given - Provider: Marichuy Pineda, ANTHONY) 0844 (Given - Provider: Gladis Shay, RN) iohexol (OMNIPAQUE) 240 mg/mL oral solution 50 mL (COMPLETED) 50 mL, Oral, PRE-PROCEDURE ONCE, 1 dose, Starting on 12/28/18 at 1604, Until 12/28/18 at 1638, Routine 1638 (Given - Provider: Marichuy Pineda, ANTHONY) iopamidol (ISOVUE-300) 61 % injection 100 mL (COMPLETED) 100 mL, IV, INTRA-PROCEDURE ONCE, 1 dose, Starting on 12/28/18 at 1855, Until 12/28/18 at 1856, Routine 1856 (Contrast Given - Provider: Diane Herrera, RT) lidocaine (XYLOCAINE) 2 % viscous oral solution 10 mL (COMPLETED)(Linked Group 1) 10 mL, Mouth/Throat, ONE TIME ONLY, 1 dose, On 12/28/18 at 1200, Routine 1151 (Given - Provider: Marichuy Pineda RN) LORazepam (ATIVAN) tablet 1 mg (COMPLETED) 1 mg, Oral, ONE TIME ONLY, 1 dose, On 12/28/18 at 1445, Routine 1545 (Given - Provider: Marichuy Pineda RN) lubiprostone (AMITIZA) capsule 24 mcg 24 mcg, Oral, TWO TIMES DAILY WITH MEALS, First dose on 12/27/18 at 1200, Until Discontinued, Routine 1536 (Refused - Provider: Kaitlynn Dorantes RN - Comment: will start w/ next dose)1850 (Given - Provider: Kaitlynn Dorantes RN) 0843 (Given - Provider: Marichuy Pineda, ANTHONY)1859 (Given - Provider: Marichuy Pineda, ANTHONY) 0844 (Given - Provider: Gladis Shay, ANTHONY)1700 (Due) magnesium citrate oral solution 296 mL (COMPLETED) 296 mL, Oral, ONE TIME ONLY, 1 dose, On 12/27/18 at 1530, Routine 1850 (Given - Provider: Kaitlynn Dorantes RN) morphine 4 mg/mL injection 4 mg (COMPLETED) 4 mg, IV, ONE TIME ONLY, 1 dose, On 12/28/18 at 1430, Routine 1430 (Given - Provider: Marihcuy Pineda, ANTHONY) morphine 4 mg/mL injection 4 mg 4 mg, IV, ONE TIME ONLY, 1 dose, On 12/28/18 at 1445, Routine 1445 (Not Given - Provider: Marichuy Pineda RN - Reason: Clarify-Other (Comment) - Comment: subsequent order placed) naloxone (NARCAN) 0.4 mg/mL injection 0.1 mg 0.1 mg, IV, SEE ADMIN INSTRUCTIONS, Starting on 12/27/18 at 1012, Until 12/29/18 at 1938, Routine pantoprazole (PROTONIX) injection 40 mg (COMPLETED) 40 mg, IV, ONE TIME ONLY, 1 dose, On 12/28/18 at 1200, Routine 1133 (Given - Provider: Marichuy Pineda RN)1300 (Canceled Entry - Provider: Marichuy Pineda RN) pantoprazole (PROTONIX) tablet 40 mg 40 mg, Oral, DAILY BEFORE BREAKFAST, First dose on 12/29/18 at 0730, Until Discontinued, Routine 0840 (Given - Provider: Gladis Shay RN) sennosides-docusate sodium (SENNA-S) 8.6-50 mg per tablet 2 Tablet 2 Tablet, Oral, TWO TIMES DAILY, First dose on 12/27/18 at 1430, Until Discontinued, Routine 1537 (Given - Provider: Kaitlynn Dorantes RN)2048 (Given - Provider: Todd Walton RN) 0842 (Given - Provider: Marichuy Pineda RN)220 (Given - Provider: Laurel Wu RN) 0844 (Refused - Provider: Gladis Shay RN - Comment: patient had multiple episodes of diarrhea in the last 12 hours) sodium chloride flush injection 10 mL () 10 mL, IV, SEE ADMIN INSTRUCTIONS, Starting on 12/28/18 at 1856, Until 12/28/18 at 2255, Routine 1856 (Given - Provider: Diane Herrera, RT) traZODone (DESYREL) tablet 100 mg 100 mg, Oral, DAILY AT BEDTIME, First dose on 12/27/18 at 2100, Until Discontinued, Routine 2046 (Given - Provider: Todd Walton RN) 2202 (Given - Provider: Laurel Wu, ANTHONY) Continuous Medication Order 12/27/2018 12/28/2018 12/29/2018 sodium chloride 0.9% infusion IV, at 125 mL/hr, CONTINUOUS, Starting on 12/26/18 at 2115, Until 12/29/18 at 1938, Routine 0032 (New Bag - Provider: Ghazala Kraft RN)0809 (New Bag - Provider: Kaitlynn Dorantes RN)0810 (Rate Verify - Provider: aKitlynn Dorantes RN)1630 (Bag Switched - Provider: Kaitlynn Dorantes RN) 0005 (Bag Switched - Provider: Blanca Gregory RN)0824 (New Bag - Provider: Marichuy Pineda RN)2003 (New Bag - Provider: Laurel Wu RN) 0700 (Rate Verify - Provider: Gladis Shay RN)0800 (Rate Verify - Provider: Gladis Shay RN)0900 (Rate Verify - Provider: Gladis Shay RN)1000 (Rate Verify - Provider: Gladis Shay RN)1100 (Rate Verify - Provider: Gladis Shay RN)1126 (New Bag - Provider: Gladis Shay RN)1200 (Rate Verify - Provider: Gladis Shay RN)1300 (Rate Verify - Provider: Gladis Shay RN)1400 (Rate Verify - Provider: Gladis Shay RN)1500 (Rate Verify - Provider: Gladis Shay RN)1545 (Stopped - Provider: Gladis Shay RN - Comment: dc'd for discharge home) PRN Medication Order 12/27/2018 12/28/2018 12/29/2018 acetaminophen (TYLENOL) tablet 650 mg 650 mg, Oral, EVERY 6 HOURS PRN, Starting on 12/27/18 at 1012, Until 12/29/18 at 1938, Other (See Comment), See admin instructions, Routine bisacodyl (DULCOLAX) rectal suppository 10 mg 10 mg, Rectal, DAILY PRN, Starting on 12/27/18 at 1012, Until 12/29/18 at 1938, Constipation, Routine dicyclomine (BENTYL) capsule 10 mg 10 mg, Oral, EVERY 6 HOURS PRN, Starting on 12/27/18 at 1012, Until 12/29/18 at 1938, IBS, Routine 1537 (Given - Provider: Kaitlynn Dorantes RN) 1256 (Given - Provider: Marichuy Pineda RN) morphine 4 mg/mL injection 4 mg (CANCELED) 4 mg, IV, EVERY 3 HOURS PRN, Starting on 12/26/18 at 2324, Until 12/28/18 at 0717, Pain (See admin instructions), Routine 0020 (Given - Provider: Ghazala Kraft RN)0410 (Given - Provider: Ghazala Kraft RN)0810 (Given - Provider: Kaitlynn Dorantes RN)1211 (Given - Provider: Kaitlynn Dorantes RN)1534 (Given - Provider: Kaitlynn Dorantes RN)1916 (Given - Provider: Todd Walton RN)2354 (Given - Provider: Blanca Gregory, ANTHONY) 0324 (Given - Provider: Blanca Gregory RN) morphine 4 mg/mL injection 4 mg (CANCELED) 4 mg, IV, EVERY 4 HOURS PRN, Starting on 12/28/18 at 0730, Until 12/29/18 at 1044, Pain (See admin instructions), Routine 1137 (Given - Provider: Marichuy Pineda RN)1902 (Given - Provider: Marichuy Pineda RN)2342 (Given - Provider: Laurel Wu, ANTHONY) 0430 (Given - Provider: Laurel Wu, ANTHONY)0838 (Given - Provider: Gladis Shay RN) ondansetron (ZOFRAN ODT) tablet 4 mg 4 mg, Sublingual, EVERY 8 HOURS PRN, Starting on 12/27/18 at 1012, Until 12/29/18 at 1938, Nausea/Emesis, Routine ondansetron (ZOFRAN) 4 mg/2 mL injection 4 mg 4 mg, IV, EVERY 6 HOURS PRN, Starting on 12/26/18 at 2324, Until 12/29/18 at 1938, Nausea/Emesis, Routine 0922 (Given - Provider: Marichuy Pineda RN) pregabalin (LYRICA) capsule 100 mg 100 mg, Oral, DAILY PRN, Starting on 12/27/18 at 1012, Until 12/29/18 at 1938, LBP, Routine 1537 (Given - Provider: Kaitlynn Dorantes RN) Linked Groups Order Group 1: aluminum - magnesium - simethicone (MYLANTA) 200-200-20 mg/5 mL oral suspension 20 mL (COMPLETED)Jump to med 20 mL, Oral, ONE TIME ONLY, 1 dose, On 12/28/18 at 1200, Routine And lidocaine (XYLOCAINE) 2 % viscous oral solution 10 mL (COMPLETED)Jump to med 10 mL, Mouth/Throat, ONE TIME ONLY, 1 dose, On 12/28/18 at 1200, Routine documented in this encounter Care Teams [employer] Relationship Specialty Start Date End Date Isaiah Quiros MD [address] [place] [id number] PCP - General Internal Medicine 04/16/18 documented as of this encounter
--- OUTSIDE RECORDS SUMMARY | 2024-04-29 19:21 | XMS_ITS | Encounter Summary ---
Author Organization [facility] Address [address] [place] [address]. 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 No / Unsure 03/01/2021 12:24 PM WHEAT FARMER documented as of this encounter Plan of Treatment Not on file documented as of this encounter Visit Diagnoses Not on filedocumented in this encounter Care Teams Application Tester Relationship Specialty Start Date End Date Bhupinder Tobias MD [address] [place] [address] PCP - General INTERNAL MEDICINE 03/01/21 documented as of this encounter
--- OUTSIDE RECORDS SUMMARY | 2024-04-29 19:21 | XMS_ITS | Encounter Summary ---
Author Organization [facility] Address [address] [place] [address] Care Team Providers Care Collections Curator Name Role Phone Isaiah Quiros MD Primary Care Provider [phone] Reason for Visit * Reason Comments Medication Refill Encounter Details Date Type Department Care Team (Late st Contact Info) Description 11/10/2019 Refill [facility]enterology [place] A [address] [place] [address] Alex Mahajan MD [address] [facility] [address] [place] [address] Intermittent generalized abdominal pain Social [...] pain documented in this encounter Care Teams Collections Curator Relationship Specialty Start Date End Date Isaiah Quiros MD [address] [place] [id number] PCP - General Internal Medicine 04/16/18 documented as of this encounter
--- OUTSIDE RECORDS SUMMARY | 2024-04-29 19:21 | XMS_ITS | Clinical Summary ---
Author Organization [facility] Address [address], [address] [address] Phone Care Team Providers Care Group Sales Representative Name Role Phone Marbin Fair DO Unavailable [phone] Amadeo Hernandez MD Unavailable Isaiah Quiros MD Primary Care Provider [phone] Medications cholestyramine (QUESTRAN) 4 GM Pack Take 1 Packet by mouth 2 times daily (with meals). 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 Gender Identity Not on file Sexual Orientation Not on file Plan of Treatment Health Maintenance Due Date Last Done Comments Hepatitis C Virus (HCV) Screening 1974 TdaP Immunization 1974 Hepatitis B Immunization (1 of 3 - 19+ 3-dose series) 1993 Pap Smear 1995 Cervical Cancer Screening (CCS) 2004 HPV/Cotest 2004 Discussion re Starting/Frequency of Mammograms 2014 Influenza Immunization (#1) 2023 03/10/2015 SARS-COV-2 Immunization ( season) 2023 02/02/2021, 07/21/2020, 06/30/2020 Cologuard 2024 Immunochemical Fecal Occult Blood 2024 Colonoscopy 09/22/2030 09/22/2020, 05/02/2018, 03/09/2015 Colorectal Cancer Screening 09/22/2030 Respiratory Syncytial Virus (RSV) Immunization (Adult) (1 - 1-dose 75+ series) 2049 09/22/2020, 05/02/2018, 03/09/2015 Meningococcal Immunization (ACWY) Aged Out No longer eligible b ased on patient's age to complete this topic Pneumococcal Immunization Combined Aged Out No longer eligible b ased on patient's age to complete this topic Rotavirus Immunization Aged Out No lo nger eligible based on patient's age to complete this topic Procedures Procedure Name Priority Date/Time Associated Diagnosis Comments COLONOSCOPY Routine 09/22/2020 from Last 3 Months or Most Recently Relevant to Health Maintenance Results * COLONOSCOPY (09/22/2020) Marbin Fair DO PROCEDURE/MINOR SURGICAL ORDERA BLES Final Result from Last 3 Months or Most Recently Relevant to Health Maintenance Insurance Care Teams Group Sales Representative Relationship Specialty Start Date End Date Isaiah Quiros MD [address], [address] [place] [address] PCP - General Internal Medicine 05/08/18 Marbin Fair DO Gastroenterology 12/03/16 Amadeo Hernandez MD [address] [address] 12/03/16
--- OUTSIDE RECORDS SUMMARY | 2024-04-29 19:21 | XMS_ITS | Encounter Summary ---
Author Organization [facility] Address [address] [place] [address] Care Team Providers Care Sugar Cane Grower Name Role Phone Isaiah Quiros MD Primary Care Provider [phone] Reason for Visit * Reason Comments Medication Refill Encounter Details Date Type Department Care Team (Late st Contact Info) Description 08/22/2018 Refill [facility] Gastroenterology [place] A [address] [address] [place] [address] Alex Mahajna MD [address] [facility] [address] [place] [address] Social History Tobacco Use Types [...] on filedocumented in this encounter Care Teams Sugar Cane Grower Relationship Specialty Start Date End Date Isaiah Quiros MD [address] [place] [address] PCP - General Internal Medicine 04/16/18 documented as of this encounter
--- OUTSIDE RECORDS SUMMARY | 2024-04-29 19:21 | XMS_ITS | Encounter Summary ---
Author Organization [facility] Address [address] [place] [address]. [place], [place] [id number] [place] [id number] Care Team Providers Care Street Commissioner Name Role Phone Bandar Melendez MD Primary Care Provider [phone] Reason for Visit * Reason Comments Abdominal Pain Encounter Details Date Type Department Care Team (Late st Contact Info) Description 03/01/2021 12:38 PM SWITCH CLEANER - 03/01/2021 4:36 PM SWITCH CLEANER Emergency [facility] [place] [address] Chio Benitez MD [address] [place] [address] Abdominal Pain Discharge Disposition: Home or Self Care (Routine Discharge) Social History Tobacco Use Types Packs/Day Years Used Date Smoking Tobacco: Former Smokeless Tobacco: Never Alcohol Use Standard Drinks/Week Comments Yes 0 (1 standard drink = 0.6 oz pur e alcohol) rarely Comments No Sex and Gender Information Value Date Recorded Sex Assigned at Not on file Legal Sex Female 12:23 PM SWITCH CLEANER Gender Identity Not on file Sexual Orientation Not on file COVID-19 Exposure Response Date Recorded In the last month, have you been in contact with someone who was confirmed or suspected to have Coronavirus / COVID-19? No / Unsure 03/01/2021 12:24 PM SWITCH CLEANER documented as of this encounter Last Filed Vital Signs Vital Sign Reading Time Taken Comments Blood Pressure 108/79 03/01/2021 3:00 PM SWITCH CLEANER Pulse 79 03/01/2021 3:00 PM SWITCH CLEANER Temperature 36.2 ??C (97.2 ??F) 03/01/2021 1 2:34 PM SWITCH CLEANER Respiratory Rate 16 03/01/2021 3:00 PM SWITCH CLEANER Oxygen Saturation 98% 03/01/2021 3:00 PM SWITCH CLEANER Inhaled Oxygen Concentration - - Weight 86.1 kg (189 lb 13.1 oz) 021 12:34 PM SWITCH CLEANER Height 167.6 cm (5' 6 ) 03/01/2021 12:3 4 PM SWITCH CLEANER Body Mass Index 30.64 03/01/2021 12:34 PM SWITCH CLEANER documented in this encounter Discharge Instructions * Discharge Instructions* Chio Benitez MD - 03/01/2021 4:12 PM SWITCH CLEANER Follow a clear liquid diet for the next 24 hours then slowly advance to a bland diet. Follow up with your primary care doctor, your GI doctor and the urologist (Marcella Coreas). You may take your hydrocodone every 6 hours as needed. Take your zofran 15-20 minutes prior to that. Take a stool softener every day that you take the hydrocodone as it will cause constipation. Do not drive or drink alcohol while using hydrocodone. CH CLEANER CH CLEANER * Attachments The following attachments cannot be sent through Care Everywhere. * Blood in the Urine (Hematuria) Discharge Instructions, Adult (Gambian) * Abdominal Pain, Adult ED (Gambian) documented in this encounter ED Notes * Divina Caldera RN - 03/01/2021 4:35 PM CST Discharge instructions reviewed with patient understanding. Pt discharged home with . CH CLEANER * Divina Caldera RN - 03/01/2021 2:48 PM CST Bladder scan showed 0ml in bladder CH CLEANER * Chio Benitez MD - 03/01/2021 2:37 PM CST [place], [place] EMERGENCY DEPARTMENT ENCOUNTER Chief Complaint Chief Complaint Patient presents with ??? 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 Pt states she has known bilateral kidney stones. Pt states she followed up with her PCP who set up an outpt MRI of the abdomen. Pt has a GI specialist to follow upwith. Pt states she has not taken her pain medication (hydrocodone with acetaminophen) due to elevated enzymes. Pt has also not been taking her meds for RA due to receiving the covid19 booster shot recently. Pt is followed by PCP . Medical History ALLERGIES: No Known Allergies MEDICATIONS: Prior to Admission medications Medication Sig Start Date End Date Taking? Authorizing Provider HYDROcodone-ibuprofen 7.5-200 MG tablet Take 1 tablet by mouth every 8 (eight) hours as needed. Indications: Acute Pain < 3 Day Supply 03/01/21 Yes Chio Benitez MD PAST MEDICAL HISTORY: Past Medical History: Diagnosis Date ??? Diverticulosis ??? Meredith-Danlos disease ??? IBS (irritable colon syndrome) ??? Psoriatic arthritis (CMS/HCC) PAST SURGICAL HISTORY: Past Surgical History: Procedure Laterality Date ??? SECTION ??? KNEE SURGERY Bilateral ??? LITHOTRIPSY ??? TONSILLECTOMY FAMILY HISTORY: No family history on file. SOCIAL HISTORY: Social History Tobacco Use ??? Smoking status: Former Smoker ??? Smokeless tobacco: Never Used Vaping Use ??? Vaping Use: Never used Substance Use Topics ??? Alcohol use: Yes Comment: rarely ??? Drug use: Yes Types: Marijuana Review of Systems Review of Systems Constitutional: Negative for chills and fever. HENT: Negative for sore throat. Eyes: Negative for pain. Respiratory: Negative for cough and shortness of breath. Cardiovascular: Negative for chest pain. Gastrointestinal: Positive for abdominal pain, diarrhea and vomiting. Negative for nausea. Endocrine: Negative for polyuria. Genitourinary: Negative for dysuria. Skin: Negative for rash. Neurological: Negative for dizziness and headaches. Psychiatric/Behavioral: Negative for behavioral problems. See HPI for further details. All systems negative except as marked. Physical Exam Filed Vitals: 03/01/21 1234 03/01/21 1455 03/01/21 1458 03/01/21 1500 BP: 93/77 115/71 115/71 108/79 Pulse: 107 78 76 79 Resp: 18 16 16 Temp: 97.2 ??F (36.2 ??C) TempSrc: Temporal SpO2: 97% 95% 95% 98% Weight: 86.1 kg (189 lb 13.1 oz) Height: 5' 6 (1.676 m) Physical Exam Vitals and nursing note reviewed. Constitutional: Appearance: She is well-developed. HENT: Head: Normocephalic and atraumatic. Eyes: Conjunctiva/sclera: Conjunctivae normal. Cardiovascular: Rate and Rhythm: Normal rate and regular rhythm. Pulmonary: Effort: Pulmonary effort is normal. Breath sounds: Normal breath sounds. No stridor. Abdominal: Palpations: Abdomen is soft. Tenderness: There is abdominal tenderness in the epigastric area and periumbilical area. Musculoskeletal: General: No deformity. Cervical back: Neck supple. Skin: General: Skin is warm and dry. Neurological: Mental Status: She is alert and oriented to person, place, and time. Diagnostic Studies / Procedures ELECTROCARDIOGRAMS: Results for orders placed or performed during the hospital encounter of 03/01/21 ECG 12 lead Narrative [address] Test Date: 2021-03-01 Pat Name: JULIAN SAUER Department: Room: Gender: Female Plastics Fabricator: JOSE ALBERTO : 1975 Requested By: HAZEL HENSLEY Order Number: [id number] Reading MD: Measurements Intervals [place] Rate: 103 P: 42 UT: 153 QRS: 38 QRSD: 86 T: 42 QT: 328 QTc: 430 Interpretive Statements SINUS TACHYCARDIA POSSIBLE LEFT ATRIAL ENLARGEMENT ABNORMAL RHYTHM ECG No previous ECG available for comparison LABORATORY STUDIES: Results for orders placed or performed during the hospital encounter of 03/01/21 CBC W/DIFF AUTOMATED Result Value Ref Range WBC 11.2 (H) 4.5 - 11.0 x10'3/uL RBC 4.94 4.20 - 5.40 x10'6/uL HGB 14.8 12.0 - 16.0 G/DL HCT 45.6 38.0 - 48.0 % MCV 92.3 81.0 - 99.0 FL MCH 30.0 27.0 - 31.0 PG MCHC 32.5 32.0 - 36.0 G/DL RDW 13.6 11.5 - 14.5 % PLT 314 130 - 400 x10'3/uL MPV 9.2 (L) 9.3 - 12.2 FL DIFFERENTIAL TYPE AUTOMATED DIFFERENTIAL NEUTROPHILS 80.4 % LYMPHOCYTES 11.9 % MONOCYTES 5.6 % EOSINOPHILS 1.0 % BASOPHILS 0.6 % IMMATURE GRANS 0.5 % ABS. NEUTROPHILS TOTAL 8.97 (H) 1.80 - 7.70 x10'3/uL ABS. LYMPHOCYTES 1.33 1.00 - 4.80 x10'3/uL ABS. MONOCYTES 0.63 0.24 - 0.86 x10'3/uL ABS. EOSINOPHILS 0.11 0.04 - 0.36 x10'3/uL ABS. BASOPHILS 0.07 0.01 - 0.08 x10'3/uL ABS. IMMATURE GRANULOCYTES 0.06 0.00 - 0.49 x10'3/uL COMPREHENSIVE METABOLIC PANEL Result Value Ref Range GLUCOSE 83 70 - 99 MG/DL BUN 13 7 - 18 MG/DL CREATININE S/P/B 1.17 (H) 0.55 - 1.02 MG/DL SODIUM 136 136 - 145 MMOL/L POTASSIUM 4.3 3.5 - 5.1 MMOL/L CHLORIDE S/P/B 109 (H) 100 - 108 MMOL/L CO2 24.2 21 - 32 MMOL/L CALCIUM 9.2 8.5 - 10.1 MG/DL BILIRUBIN TOTAL S/P/B 0.7 0.2 - 1.2 MG/DL TOTAL PROTEIN S/P/B 8.0 6.4 - 8.2 G/DL ALBUMIN S/P/B 3.6 3.4 - 5.0 G/DL AST 35 15 - 37 U/L ALT 74 (H) 14 - 55 U/L ALKALINE PHOSPHATASE S/P/B 87 50 - 136 U/L ANION GAP 2.8 (L) 5 - 15 MMOL/L BUN CREATININE RATIO 11.1 6 - 26 A/G RATIO 0.8 (L) 1.0 - 2.0 RATIO eGFR Non-Afr. Amer. 56 (L) >90 ML/MIN/1.73 M2 eGFR Afr. Amer. 65 (L) >90 ML/MIN/1.73 M2 TROPONIN, QUANT Result Value Ref Range TROPONIN I HIGH SENSITIVITY 3 <54 ng/L LIPASE Result Value Ref Range LIPASE 502 (H) 73 - 393 UNITS/L URINALYSIS Result Value Ref Range Specimen Type URINE CLEAN CATCH COLOR (U) YELLOW TRANSPARENCY CLEAR Specific [place] (U) 1.030 1.001 - 1.030 U PH 5.5 5.0 - 9.0 LEUKOCYTE ESTERASE NEGATIVE NEGATIVE NITRITES NEGATIVE NEGATIVE PROTEIN (U) 10 <30 MG/DL URINE GLUCOSE NORMAL NORMAL MG/DL U KETONES NEGATIVE NEGATIVE MG/DL UROBILINOGEN 2.0 (A) NORMAL MG/DL BILIRUBIN (U) NEGATIVE NEGATIVE MG/DL BLOOD 2+ (A) NEGATIVE CULTURE & SENSITIVITY INDICATED? CULTURE IS NOT INDICATED MUCUS RARE /LPF WBC/HPF <1 <6 /HPF RBC/HPF 14 (H) <6 /HPF SQUAMOUS EPITHELIALS RARE /HPF IMAGING STUDIES No orders to display ED Course / Medical Decision Making ED Course as of Mar 01 1612 Wed Mar 01, 2021 1441 WBC minimally elevated. Lipase mildly elevated but does not meet criteria for acute pancreatitis. [BH] [address] scan less than 1 week ago which showed diverticulosis, non obstructing kidney stones, liver hemangioma but no acute abnormalities. She has an MRI of her abd scheduled within the next2 weeks by her PCP. She also has a GI specialist who she sees. Therefore repeat CT scan today not indicated. [BH] 1544 EKG shows sinus tachycardia. Rate 103. No ischemic changes. [BH] 1545 UA is positive for blood and therefore will refer patient to urology as an outpatient. [] 1606 Pt has norco at home but requests a medication that does not contain tylenol therefore I wroteher for vicoprofen. [] ED Course User Index [] Chio Benitez MD Data reviewed: All current, pertinent and timely studies (laboratory, imaging, and procedures) wereordered and results reviewed by Chio Benitez MD unless otherwise noted. Triage notes and available nursing notes reviewed. Previous medical record reviewed when available. Repeat vital signs reviewed. Medications sodium chloride 0.9% bolus infusion SOLN 1,000 mL (0 mLs Intravenous Infusion Stop Time 03/01/21 1604) ondansetron (ZOFRAN) injection 4 mg (4 mg Intravenous Given 03/01/21 1443) morphine injection 4 mg (4 mg Intravenous Given 03/01/21 1443) Clinical Impression Abdominal pain (Primary) Hematuria Abnormal serum level of lipase Current Discharge Medication List START taking these medications Details HYDROcodone-ibuprofen 7.5-200 MG tablet Take 1 tablet by mouth every 8 (eight) hours as needed. Indications: Acute Pain < 3 Day Supply Qty: 8 tablet, Refills: 0 Class: Print Comments: Per [place] law, C-II Rx's must include written & numerical notation of quantity. Quantity (in words) eight. Associated Diagnoses: Abdominal pain Disposition: Discharge Follow-Up: BANDAR MELENDEZ MD I, Alma Delia Glez, acting as a scribe, am personally taking down the notes in the presence of Chio Benitez MD. Take no action on this note until reviewed and authenticated by the physician. Chio Benitez MD 03/01/21 1612 CH CLEANER * SHARON Chilel - 03/01/2021 12:36 PM CST [place], [place] EMERGENCY DEPARTMENT ENCOUNTER Medical Screening Examination Chief Complaint : Abdominal Pain HPI : Julian Sauer is a 45-year-old female who presents *umbilical abdominal pain since the fifth,was seen and evaluated in an emergency room on the seventh, saw her PCP on the eighth. States her PCP advised her her liver enzymes were elevated, she had bilateral kidney stones, blood in her urine and liver lesions. States the pain has not improved. Sees Dr. Arias-GI specialist, states history ofIBS-C, several episodes of diarrhea and one episode of pink emesis earlier today Vital Signs: Filed Vitals: 03/01/21 1234 BP: 93/77 Pulse: 107 Resp: 18 Temp: 97.2 ??F (36.2 ??C) TempSrc: Temporal SpO2: 97% Weight: 86.1 kg (189 lb 13.1 oz) Height: 5' 6 (1.676 m) Physical exam: A brief physical exam was completed to facilitate/expedite patient care. Lim findings include: Indicates tenderness around umbilicus with deep palpation, tachycardic* Plan: Labs & Imaging was ordered to facilitate patient care. and EKG was ordered to faciliate patient care. SHARON Chilel 03/01/21 1238 Cosigned by Chino Jarvis MD at 03/01/2021 4:06 PM SWITCH CLEANER CH CLEANER CH CLEANER * Julian Raphael RN - 03/01/2021 12:29 PM CST Pt ambulatory to ED from home c/o mid abdominal pain 08/29, dull that began Saturday. Vomit x 1 today.Pt is always nauseated. Pt history IBS-C, pt states this does not feel like her normal flare. Pt denies fevers. Pt seen in [facility] Saturday and saw PCP on Saturday for follow up. Liver enzymes were noted to be elevated with masses showing. CH CLEANER documented in this encounter Plan of Treatment Not on file documented as of this encounter Procedures Procedure Name Priority Date/Time Associated Diagnosis Comments HC URINALYSIS AUTO W/O MICRO STAT 03/01/2021 2:27 PM SWITCH CLEANER COMPREHENSIVE METABOLIC PANEL STAT 03/01/2021 1:01 PM SWITCH CLEANER CBC W/DIFF AUTOMATED STAT 03/01/2021 1:01 PM SWITCH CLEANER TROPONIN, QUANT STAT 03/01/2021 1:01 PM SWITCH CLEANER LIPASE STAT 03/01/2021 1:01 PM SWITCH CLEANER ECG 12-LEAD Routine 03/01/2021 12:46 PM SWITCH CLEANER documented in this encounter Results * (ABNORMAL) URINALYSIS (03/01/2021 2:27 PM SWITCH CLEANER) SPECIMEN TYPE URINE CLEAN CATCH 03/01/2021 2:[address] [facility] COLOR (U) YELLOW 03/01/2021 3:[address] [facility] TRANSPARENCY CLEAR 03/01/2021 3:01 PM [facility] SPECIFIC GRAVITY (U) 1.030 1.001 - 1.030 03/01/2021 3:[address] [facility] U PH 5.5 5.0 - 9.0 03/01/2021 3:01 PM [facility] LEUKOCYTES (U) NEGATIVE NEGATIVE 03/01/2021 3:01 PM [facility] NITRITES NEGATIVE NEGATIVE 03/01/2021 3:01 PM [facility] PROTEIN (U) 10 <30 MG/DL 03/01/2021 3:01 PM [facility] URINE GLUCOSE NORMAL NORMAL MG/DL 03/01/2021 3:01 PM [facility] KETONES MG/DL (U) NEGATIVE NEGATIVE MG/DL 03/01/2021 3:01 PM [facility] UROBILINOGEN 2.0(A) NORMAL MG/DL 03/01/2021 3:[address] [facility] BILIRUBIN (U) NEGATIVE NEGATIVE MG/DL 03/01/2021 3:[address] [facility] BLOOD (U) 2+(A) NEGATIVE 03/01/2021 3:[address] [facility] CULTURE & SENSITIVITY INDICATED? CULTURE IS NOT INDICATED 03/01/2021 3:[address] [facility] MUCUS RARE /LPF 03/01/2021 3:[address] [facility] WBC/HPF <1 <6 /HPF 03/01/2021 3:[address] [facility] RBC/HPF 14(H) <6 /HPF 03/01/2021 3:[address] [facility] SQUAMOUS EPITHELIALS RARE /HPF 03/01/2021 3:[address] [facility] URINE SPECIMEN OBTAINED BY CLEAN CATCH PROCEDURE / Unknown 03/01/2021 2:27 PM SWITCH CLEANER Hazel Henslye [facility] URINE ORDERABLES Final Resu lt [facility] [address] [place] [address], [place] [phone] * (ABNORMAL) LIPASE (03/01/2021 1:01 PM SWITCH CLEANER) LIPASE 502(H) 73 - 393 UNITS/L 03/01/2021 1:[address] [facility] 03/01/2021 1:01 PM SWITCH CLEANER Hazel Hensley DIRECTOR NURSES' REGISTRY LABORATORY Final Resul t [facility] [address] [place] [address], * TROPONIN, QUANT (03/01/2021 1:01 PM SWITCH CLEANER) [facility] TROPONIN I HIGH SENSITIVITY 3 <54 ng/L 03/01/2021 1:[address] [facility] Comment: HIGH DOSES OF BIOTIN, TROPONIN-SPECIFIC AUTOANTIBODIES, AND ANTIBODY THERAPY CONTAINING HAMA MAY INTERFERE WITH THIS TEST RESULT. CORRELATION TO CLINICAL HISTORY AND PRESENTATION RECOMMENDED. 03/01/2021 1:01 PM SWITCH CLEANER Hazel Hensley [facility] Final Resul t [facility] [address] [place] [address], * (ABNORMAL) COMPREHENSIVE METABOLIC PANEL (03/01/2021 1:01 PM SWITCH CLEANER) [facility] GLUCOSE 83 70 - 99 MG/DL 03/01/2021 1:[address] [facility] BUN 13 7 - 18 MG/DL 03/01/2021 1:49 PM [facility] CREATININE S/P/B 1.17(H) 0.55 - 1.02 MG/DL 03/01/2021 1:[address] [facility] SODIUM S/P/B 136 136 - 145 MMOL/L 03/01/2021 1:[address] [facility] POTASSIUM S/P/B 4.3 3.5 - 5.1 MMOL/L 03/01/2021 1:[address] [facility] CHLORIDE S/P/B 109(H) 100 - 108 MMOL/L 03/01/2021 1:[address] [facility] CO2 24.2 21 - 32 MMOL/L 03/01/2021 1:[address] [facility] CALCIUM S/P/B 9.2 8.5 - 10.1 MG/DL 03/01/2021 1:49 PM [facility] BILIRUBIN TOTAL S/P/B 0.7 0.2 - 1.2 MG/DL 03/01/2021 1:49 PM [facility] Comment: THIS ASSAY IS NOT RECOMMENDED FOR PATIENTS UNDERGOING TREATMENT WITH ELTROMBOPAG DUE TO THE POTENTIAL FOR FALSELY ELEVATED RESULTS. TOTAL PROTEIN S/P/B 8.0 6.4 - 8.2 G/DL 03/01/2021 1:49 PM [facility] ALBUMIN S/P/B 3.6 3.4 - 5.0 G/DL 03/01/2021 1:49 PM [facility] AST 35 15 - 37 U/L 03/01/2021 1:49 PM [facility] ALT 74(H) 14 - 55 U/L 03/01/2021 1:49 PM [facility] ALKALINE PHOSPHATASE S/P/B 87 50 - 136 U/L 03/01/2021 1:49 PM [facility] ANION GAP 2.8(L) 5 - 15 MMOL/L 03/01/2021 1:49 PM [facility] BUN CREATININE RATIO 11.1 6 - 26 03/01/2021 1:49 PM [facility] A/G RATIO 0.8(L) 1.0 - 2.0 RATIO 03/01/2021 1:49 PM [facility] EGFR NON-AFR. AMER. 56(L) >90 ML/MIN/1.7 3 M2 03/01/2021 1:49 PM [facility] EGFR AFR. AMER. 65(L) >90 ML/MIN/1.7 3 M2 03/01/2021 1:49 PM [facility] Comment: NOTE: eGFR is not calculated for patients <18 years of age. This is an estimated GFR (CKD EPI) and should not be used for calculating drug doses. 03/01/2021 1:01 PM SWITCH CLEANER Hazel Hensley DIRECTOR NURSES' REGISTRY LABORATORY Final Resul t [facility] [address] [place] [address], * (ABNORMAL) CBC W/DIFF AUTOMATED (03/01/2021 1:01 PM SWITCH CLEANER) WBC 11.2(H) 4.5 - 11.0 x10'3/uL 03/01/2021 1:[address] [facility] RBC 4.94 4.20 - 5.40 x10'6/uL 03/01/2021 1:[address] [facility] HGB 14.8 12.0 - 16.0 G/DL 03/01/2021 1:[address] [facility] HCT 45.6 38.0 - 48.0 % 03/01/2021 1:[address] [facility] MCV 92.3 81.0 - 99.0 FL 03/01/2021 1:[address] [facility] MCH 30.0 27.0 - 31.0 PG 03/01/2021 1:[address] [facility] MCHC 32.5 32.0 - 36.0 G/DL 03/01/2021 1:[address] [facility] RDW 13.6 11.5 - 14.5 % 03/01/2021 1:[address] [facility] PLT 314 130 - 400 x10'3/uL 03/01/2021 1:13 PM [facility] MPV 9.2(L) 9.3 - 12.2 FL 03/01/2021 1:13 PM [facility] DIFFERENTIAL TYPE AUTOMATED DIFFERENTIAL 03/01/2021 1:13 PM [facility] NEUTROPHILS % 80.4 % 03/01/2021 1:13 PM [facility] LYMPHOCYTES % 11.9 % 03/01/2021 1:13 PM [facility] MONOCYTES % 5.6 % 03/01/2021 1:13 PM [facility] EOSINOPHILS 1.0 % 03/01/2021 1:13 PM [facility] BASOPHILS 0.6 % 03/01/2021 1:13 PM [facility] IMMATURE GRANS % 0.5 % 03/01/20 1:13 PM [facility] ABS. NEUTROPHILS TOTAL 8.97(H) 1.80 - 7.70 x10'3/uL 03/01/2021 1:13 PM [facility] ABS. LYMPHOCYTES 1.33 1.00 - 4.80 x10'3/uL 03/01/2021 1:13 PM [facility] ABS. MONOCYTES 0.63 0.24 - 0.86 x10'3/uL 03/01/2021 1:13 PM [facility] ABS. EOSINOPHILS 0.11 0.04 - 0.36 x10'3/uL 03/01/2021 1:13 PM [facility] ABS. BASOPHILS 0.07 0.01 - 0.08 x10'3/uL 03/01/2021 1:13 PM [facility] ABS. IMMATURE GRANULOCYTES 0.06 0.00 - 0.49 x10'3/uL 03/01/2021 1:13 PM [facility] 03/01/2021 1:01 PM SWITCH CLEANER Hazel Hensley DIRECTOR NURSES' REGISTRY LABORATORY Final Resul t [facility] [address] [place] [address], * ECG 12 lead (03/01/2021 12:46 PM SWITCH CLEANER) 03/01/2021 12:4 6 PM SWITCH CLEANER Narrative [facility] ([facility] RAD - 03/01/2021 9:32 PM SWITCH CLEANER ?[facility] ? [address] [facility] ? Test Date: ?2021-03-01 Pat Name: ? JULIAN SAUER ?Department: ? Room: ? EXAM16 Gender: ? Female ? Plastics Fabricator: ?? AA : ?1975 ? Requested By: HAZEL HENSLEY Order Number: [id number] ? Reading MD: ?? Juanpablo Otto ? Measurements Intervals ?[place] ? Rate: ? 103 ?P: ?42 UT: ? 153 ?QRS: ?38 QRSD: ? 86 ? T: ?42 QT: ? 328 ? QTc: ?430 ? Interpretive Statements SINUS TACHYCARDIA POSSIBLE LEFT ATRIAL ENLARGEMENT ABNORMAL RHYTHM ECG No previous ECG available for comparison CH CLEANER Procedure Note Juanpablo Otto MD - 03/01/2021 [facility] [address] [facility] Test Date: 2021-03-01 Pat Name: JULIAN SAUER Department: Room: [facility]16 Gender: Female Plastics Fabricator: JOSE ALBERTO : 1975 Requested By: HAZEL HENSLEY Order Number: [id number] Reading MD: Juanpablo Otto Measurements Intervals [place] Rate: 103 P: 42 UT: 153 QRS: 38 QRSD: 86 T: 42 QT: 328 QTc: 430 Interpretive Statements SINUS TACHYCARDIA POSSIBLE LEFT ATRIAL ENLARGEMENT ABNORMAL RHYTHM ECG No previous ECG available for comparison CH CLEANER Hazel Hensley [facility] ECG ORDERABLES Final Resul t [facility] ([facility]) [facility] documented in this encounter Visit Diagnoses Diagnosis Abdominal pain- Primary Abdominal pain, unspecified site Hematuria Hematuria, unspecified Abnormal serum level of lipase Other nonspecific abnormal serum enzyme levels documented in this encounter Administered Medications Inactive Administered Medications - up to 3 most recent administrations Medication Order MAR Action Action Date Dose Rate Site morphine injection 4 mg 4 mg, Intravenous, Once, 1 dose, On Sat03/01/21 at 1445 Given 03/01/2021 2:43 PM SWITCH CLEANER 4 mg ondansetron (ZOFRAN) injection 4 mg 4 mg, Intravenous, Once, 1 dose, On Sat03/01/21 at 1445, IV push over 2-5 minutes. Given 03/01/2021 2:43 PM SWITCH CLEANER 4 mg sodium chloride 0.9% bolus infusion SOLN 1,000 mL 1,000 mL, Intravenous, Administer over 15 Minutes, Once, 1 dose, On Sat03/01/21 at 1445 New Bag 03/01/2021 2:43 PM SWITCH CLEANER 1,000 mLs documented in this encounter Active and Recently Administered Medications Times are shown in SWITCH CLEANER. Scheduled Medication Order 02/27/2021 02/28/2021 03/01/2021 morphine injection 4 mg (COMPLETED) 4 mg, Intravenous, Once, 1 dose, On Sat03/01/21 at 1445 1443 (Given - Provid er: Divina Caldera RN) ondansetron (ZOFRAN) injection 4 mg (COMPLETED) 4 mg, Intravenous, Once, 1 dose, On Sat03/01/21 at 1445, IV push over 2-5 minutes. 1443 (Given - Provid er: Divina Caldera RN) sodium chloride 0.9% bolus infusion SOLN 1,000 mL (COMPLETED) 1,000 mL, Intravenous, Administer over 15 Minutes, Once, 1 dose, On Sat03/01/21 at 1445 1443 (New Bag - Prov ider: Divina Caldera RN)1604 (Infusion Stop Time - Provider: Divina Caldera, ANTHONY) documented in this encounter Care Teams Street Commissioner Relationship Specialty Start Date End Date Bandar Melendez MD [address] [place] [address] PCP - General INTERNAL MEDICINE 03/01/21 documented as of this encounter
--- OUTSIDE RECORDS SUMMARY | 2024-04-29 19:22 | XMS_ITS | Encounter Summary ---
Author Organization [facility] Address [address] [facility] [address] [place] [address] Phone Care Team Providers Care Squeezer Operator Name Role Phone Kumar CARRILLO MD, Cash Howard Unavailable [phone] Bhupinder Tobias MD Primary Care Provider [phone] Jorge Aguiar MD Unavailable [phone] Khoa Arias MD Unavailable [phone] Reason for Visit * Reason Onset Date Comments Return Call 12/07/2021 Encounter Details Date Type Department Care Team (Late st Contact Info) Description 12/07/2021 Telephone [facility] Gastroenterology [address] [place] [address] Medical Office [address], [address] [place] [address] Marjorie Diaz, ANTHONY Return Call Social History Tobacco Use Types Packs/Day Years Used Date Smoking Tobacco: Former Cigarettes Q uit: 2013 Smokeless Tobacco: Never Alcohol Use Standard Drinks/Week Comments No 0 (1 standard drink = 0.6 oz pur e alcohol) AUDIT-C Answer Date Recorded Q1: How often do you have a drink containing alc ohol? 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 Returned patient call and LVM for callback. documented in this encounter Plan of Treatment Not on file documented as of this encounter Visit Diagnoses Not on filedocumented in this encounter Care Teams Squeezer Operator Relationship Specialty Start Date End Date Bhupinder Tobias MD [address] [place] [address] PCP - General Internal Medicine 06/03/20 Cash Heath III, MD [address] [address] Rheumatology 04/12/17 Jorge Aguiar MD [address] [place] [address] Consulting Physician Urology 11/10/20 Khoa Arias MD [address] [place] [address] Referring Physician Gastroenterology 03/20/21 documented as of this encounter
--- OUTSIDE RECORDS SUMMARY | 2024-04-29 19:22 | XMS_ITS | Encounter Summary ---
Author Organization [facility] Address [address] [place] [address] Care Team Providers Care Respiratory Services Manager Name Role Phone Isaiah Quiros MD Primary Care Provider [phone] Reason for Visit * Reason Comments Follow Up ab pain, blood in st ool Encounter Details Date Type Department Care Team (Latest Contact Info) Description 07/23/2018 11:30 AM CDT Office Visit [facility] [place] A [address] [facility] [address] [place] [address] Alex Mahajan MD [address] [facility] [address] [place] [address] 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 syndrome with both constipation and diarrhea (Primary Dx); Intermittent generalized abdominal pain; Black stool Social History Tobacco Use Types Packs/Day Years [...] Sign Reading Time Taken Comments Blood Pressure 132/85 07/23/2018 11:34 AM CDT Pulse 97 07/23/2018 11:34 AM CDT Temperature - - Respiratory Rate - - Oxygen Saturation - - Inhaled Oxygen Concentration - - Weight 86.8 kg (191 lb 6.4 oz) 07/23/2018 11:34 AM CDT Height - - Body Mass Index 30.89 04/16/2018 7:51 AM SR. MANAGER documented in this encounter Progress Notes * Alex Mahajan MD - 07/23/2018 12:06 PM CDT HISTORY OF PRESENT ILLNESS Madalyn Smith, a 43 y.o. female presents with a Chief Complaint of Follow Up (ab pain, blood in stool) Subjective HPI Patient reports that she does not have a bowel movement for a few days, uses 3 doses of MiraLAX andends up having diarrhea and the cycle repeats. She started senna a few days ago. Reports history ofgeneralized abdominal pain, present 1-2 days in a week, moderately severe in intensity, sharp pain,lasts for several hours and sometimes all day, denies any specific aggravating or relieving factors. History of intermittent small amount of bright red blood on the toilet paper. Sometimes she notices black stool. Underwent extensive evaluation over the past few years. EGD and colonoscopy were performed in 2015. In April 2018, she underwent CT scan and colonoscopy which were performed at [facility], I do not have those records for review. She became very tearful during the visit today and states that she is frustrated that no one can figure out the exact reason for her symptoms and as to why all the tests are coming back normal. Past Medical History: Diagnosis Date ??? GI problem ??? Headache(784.0) migraine Past Surgical History: Procedure Laterality Date ??? HX KNEE SURGERY bilateral knee surg ??? PT DENIES RELEVANT SURGICAL HISTORY No Known Allergies Current Outpatient Prescriptions: ??? dicyclomine (BENTYL) 10 mg capsule, Take 1 Capsule (10 mg) by mouth every 6 hours as needed (abdominal pain)., Disp: 45 Capsule, Rfl: 1 ??? linaclotide (LINZESS) 290 mcg capsule, Take 1 Capsule (290 mcg) by mouth daily before breakfast., Disp: 30 Capsule, Rfl: 6 ??? raNITIdine (ZANTAC) 150 mg tablet, Take 150 mg by mouth 2 times daily., Disp: , Rfl: ??? etanercept (ENBREL) 25 mg (1 mL) Recon Soln, Inject 25 mg by subcutaneous injection one time only., Disp: , Rfl: ??? DULoxetine (CYMBALTA) 60 mg Capsule, Delayed Release(E.C.), Take 60 mg by mouth daily., Disp: ,Rfl: ??? 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 pregabalin (LYRICA) 100 mg Capsule, Take 100 mg by mouth., Disp: , Rfl: ??? pantoprazole (PROTONIX) 40 mg Tablet, Delayed Release (E.C.), Take 1 Tablet (40 mg) by mouth daily Take 30 minutes before breakfast., Disp: 30 Tablet, Rfl: 6 ??? topiramate (TROKENDI XR) 200 mg Extended Release 24 hour capsule, Take 100 mg by mouth 2 times daily., Disp: , Rfl: ??? ondansetron (ZOFRAN ODT) 4 mg Tablet, Rapid Dissolve, Place 1 Tab under tongue every 8 hours asneeded for Nausea/Emesis., Disp: 15 Tab, Rfl: 0 Family History Problem Relation Age of Onset ??? Celiac Disease Neg Hx ??? Diabetes Neg Hx ??? Inflammatory Bowel Disease Neg Hx ??? Crohn's Disease Neg Hx ??? Ulcerative Colitis Neg Hx Social History Social History ??? Marital status: Spouse name: N/A ??? Number of children: N/A ??? Years of education: N/A Occupational History ??? Not on file. Social History Main Topics ??? Smoking status: Current Every Day Smoker Types: E-Cigarette/Mist Inhalation Device ??? Smokeless tobacco: Not on file ??? Alcohol use Yes ??? Drug use: No ??? Sexual activity: Yes Other Topics Concern ??? Not on file Social History Narrative Merged History Encounter REVIEW OF SYSTEMS Review of Systems Constitutional: Negative for appetite change, chills, diaphoresis, fatigue, fever and unexpected weight change. HENT: Negative for hearing loss and trouble swallowing. Eyes: Negative for visual disturbance. Respiratory: Negative for cough and shortness of breath. Cardiovascular: Negative for chest pain, palpitations and leg swelling. Gastrointestinal: Negative for nausea, rectal pain and vomiting. Genitourinary: Negative for dysuria and hematuria. Musculoskeletal: Negative for arthralgias and myalgias. Skin: Negative for rash. Neurological: Negative for dizziness and weakness. Hematological: Does not bruise/bleed easily. Psychiatric/Behavioral: Negative for dysphoric mood. The patient is not nervous/anxious. Objective PHYSICAL EXAM BP 132/85 Pulse 97 Wt 86.8 kg (191 lb 6.4 oz) BMI 30.89 kg/m?? Physical Exam Constitutional: She is oriented to person, place, and time. She appears well- developed and well-nourished. No distress. HENT: Head: Normocephalic. Mouth/Throat: Oropharynx is clear and moist and mucous membranes are normal. Mucous membranes are not cyanotic. No oral lesions. Lips appear normal without any hyperpigmented spots. Gums appear normal without any swelling or bleeding. Eyes: Conjunctivae and lids are normal. Right eye exhibits no discharge. Left eye exhibits no discharge. No scleral icterus. Neck: Trachea normal. Neck supple. No edema and no erythema present. No thyroid mass and no thyromegaly present. Cardiovascular: Normal heart sounds. No pedal edema Pulmonary/Chest: Effort normal and breath sounds normal. Abdominal: Soft. Normal appearance and bowel sounds are normal. She exhibits no shifting dullness, no abdominal bruit, no ascites and no mass. There is no hepatosplenomegaly. There is no tenderness. There is no rigidity, no rebound and no CVA tenderness. No hernia. Musculoskeletal: No clubbing, petechiae or cyanosis in the nails or digits. Gait appears grossly normal for age. Lymphadenopathy: She has no cervical adenopathy. Right: No supraclavicular adenopathy present. Left: No supraclavicular adenopathy present. Neurological: She is alert and oriented to person, place, and time. Gait normal. Skin: Skin is warm. No abrasion, no bruising, no ecchymosis, no lesion and no rash noted. She is not diaphoretic. No cyanosis or erythema. Nails show no clubbing. Psychiatric: She has a normal mood and affect. Her speech is normal and behavior is normal. Judgment normal. Procedures Reviewed available lab data and imaging studies. ASSESSMENT and PLAN: ICD-10-CM ICD-9-CM 1. 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 syndrome with both constipation and diarrhea K58.2 564.1 linaclotide (LINZESS) 290 mcg capsule 2. Intermittent generalized abdominal pain R10.84 789.07 CBC WITHOUT DIFFERENTIAL LIPASE AMYLASE dicyclomine (BENTYL) 10 mg capsule 3. Black stool K92.1 792.1 Will need to obtain recent records including colonoscopy, CT scan results from [facility] during her recent admission there in April 2018. Trial of Bentyl for abdominal pain. Stop senna. Start Linzess 290 mcg p.o. daily with breakfast. Check above blood work. Discussed about Irritable Bowel Syndrome, triggers, trial of avoidance of triggers. Avoid IBS triggers such as dairy, caffeine, carbonated beverages, salads and raw vegetables, artificial sweeteners, fatty foods, large portions, chewing gum and chocolate. Patient became very tearful and did not appear convinced during my discussion. I answered all of her questions and concerns. TOBACCO COUNSELING She was counseled to discontinue tobacco use. documented in this encounter Plan of Treatment Not on file documented as of this encounter Results * (ABNORMAL) AMYLASE (07/23/2018 12:52 PM CDT) AMYLASE 130(H) 28 - 100 U/L 07/23/2018 2:05 PM CDT [facility] Blood Venipuncture / Unknown 07/23/2018 12:52 PM CDT 07/23/2018 1:14 PM CDT Alex Mahajan MD CHEMISTRY [facility]# [id number] [address] [facility] [place] [address] * (ABNORMAL) LIPASE (07/23/2018 12:52 PM CDT) LIPASE 116(H) 13 - 60 U/L 07/23/2018 2:05 PM CDT [facility] Blood Venipuncture / Unknown 07/23/2018 12:52 PM CDT 07/23/2018 1:14 PM CDT Alex Mahajan MD CHEMISTRY [facility]# [id number] [address] [place] [address] * (ABNORMAL) CBC WITHOUT DIFFERENTIAL (07/23/2018 12:52 PM CDT) WBC 6.9 4.0 - 9.8 K/uL 07/23/2018 1:23 PM CDT [facility] RBC 4.85 3.90 - 4.90 M/uL 07/23/2018 1:23 PM CDT [facility] HEMOGLOBIN 11.7(L) 11.8 - 14.8 g/dL 07/23/2018 1:23 PM CDT [facility] HEMATOCRIT 39.0 35.5 - 44.0 % 07/23/2018 1:23 PM CDT [facility] MCV 80.4(L) 82.0 - 99.0 fL 07/23/2018 1:23 PM CDT [facility] MCH 24.1(L) 27.2 - 32.6 pg 07/23/2018 1:23 PM CDT [facility] MCHC 30.0(L) 31.5 - 35.5 g/dL 07/23/2018 1:23 PM CDT [facility] PLATELETS 405(H) 140 - 350 K/uL 07/23/2018 1:23 PM CDT [facility] MPV 9.1(L) 9.3 - 12.4 fL 07/23/2018 1:23 PM CDT [facility] RDW 15.9(H) 11.5 - 14.5 % 07/23/2018 1:23 PM CDT [facility] RDW-STDEV 46.5 37.1 - 48.7 fL 07/23/2018 1:23 PM CDT [facility] Blood Venipuncture / Unknown 07/23/2018 12:52 PM CDT 07/23/2018 1:15 PM CDT Alex Mahajan MD HEMATOLOGY ORDER BOB Performing Organization Address City/State/[facility] Co de Phone Number [facility]# [id number] [address] [place] [address] documented in this encounter Visit Diagnoses Diagnosis 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 syndrome with both constipation and diarrhea- Primary Intermittent generalized abdominal pain Black stool Nonspecific abnormal finding in stool contents documented in this encounter Care Teams Respiratory Services Manager Relationship Specialty Start Date End Date Isaiah Quiros MD [address] [place] [id number] PCP - General Internal Medicine 04/16/18 documented as of this encounter
--- OUTSIDE RECORDS SUMMARY | 2024-04-29 19:22 | XMS_ITS | Encounter Summary ---
Author Organization [facility] Address [address] [place] [address] Care Team Providers Care Party Plan Sales Unit Advisor Name Role Phone Unavailable Primary Care Provider Unavailabl e Reason for Visit * Reason Comments Rash presents with c/o ra ised eruption to top of her right breast 1 st noted yesterday. c/o pain today in area. Henrietta Bruzaitis RN 11/16/13 @ 1424 Headache c/o MERCADO w/nausea sinc e this am. * Auth/Cert Specialty Diagnoses / Procedures Referred By Contac t Referred To Contact Urgent Care Diagnoses [facility] [address], [address] [address] Referral ID Status Reason Start Date Expiration Date Visits Re quested Visits Authorized [id number] 1 1 Encounter Details Date Type Department Care Team (Late st Contact Info) Description 11/16/2013 2:10 PM CDT Office Visit [facility] [address], [facility] [address] [place] [address] William Cuellar MD NO ADDRESS ON FILE Rene Laguerre DO NO ADDRESS ON FILE Migraine headache (Primary Dx); Nausea Social History Tobacco Use Types Packs/Day Years Used Date Smoking Tobacco: Some Days Alcohol Use Standard Drinks/Week Comments Yes 0 (1 standard drink = 0.6 oz pur e alcohol) Sex and Gender Information Value Date Recorded Sex Assigned at Not on file Gender Identity Not on file Sexual Orientation Not on file documented as of this encounter Last Filed Vital Signs Vital Sign Reading Time Taken Comments Blood Pressure 131/85 11/16/2013 2:25 PM CDT Pulse 93 11/16/2013 2:25 PM CDT Temperature 37 ??C (98.6 ??F) 11/16/2013 2:25 PM CDT Respiratory Rate 18 11/16/2013 2:25 PM CDT Oxygen Saturation 97% 11/16/2013 2:25 PM CDT Inhaled Oxygen Concentration - - Weight 74.8 kg (165 lb) 11/16/2013 2:25 PM CDT Height 165.1 cm (5' 5 ) 11/16/2013 2:25 PM CDT Body Mass Index 27.46 11/16/2013 2:25 PM CDT documented in this encounter Progress Notes * Rene Laguerre, - 11/16/2013 2:51 PM CDT Images from the original note were not included. HISTORY OF PRESENT ILLNESS Madalyn Walton, a 38 y.o. female. HPI Comments: CC: right superior chest pustule. Noted last night, ~1cm, small, with a pustule head. Pt tried to pop it, with thick yellow exudate. Since, area has become more inflamed and tender. Associated nausea, malaise/fatigue. Started this morning acutely, feels like she needs to sleep or rest. Did not take any medication for this feeling yet. Rash Associated symptoms include fatigue. Pertinent negatives include no congestion, cough, diarrhea, eye pain, fever, rhinorrhea, sore throat or vomiting. Headache Associated symptoms include abdominal pain and nausea. Pertinent negatives include no back pain, coughing, dizziness, eye pain, fever, neck pain, numbness, rhinorrhea, sore throat, vomiting or weakness. REVIEW OF SYSTEMS Review of Systems Constitutional: Positive for activity change, appetite change and fatigue. Negative for fever and chills. HENT: Negative for congestion, sore throat, rhinorrhea, mouth sores, trouble swallowing, neck pain,neck stiffness and ear discharge. Eyes: Negative for pain. Respiratory: Negative for apnea, cough and chest tightness. Cardiovascular: Negative for chest pain. Gastrointestinal: Positive for nausea and abdominal pain. Negative for vomiting, diarrhea and bloodin stool. Genitourinary: Negative for dysuria and hematuria. Musculoskeletal: Negative for back pain, arthralgias and gait problem. Skin: Positive for rash. Neurological: Positive for headaches. Negative for dizziness, weakness, light- headedness and numbness. Hematological: Negative for adenopathy. Psychiatric/Behavioral: Negative for agitation. PHYSICAL EXAM BP 131/85 Pulse 93 Temp(Src) 98.6 ??F (37 ??C) (Oral) Resp 18 Ht 5' 5 (1.651 m) Wt 165 lb (74.844 kg) BMI 27.46 kg/m2 SpO2 97% LMP 10/29/2013 ? No Physical Exam Constitutional: She is oriented to person, place, and time. She appears well-developed. Appears fatigued HENT: Head: Normocephalic and atraumatic. Eyes: Conjunctivae are normal. Pupils are equal, round, and reactive to light. Neck: Normal range of motion. Neck supple. Cardiovascular: Normal rate and regular rhythm. Exam reveals no friction rub. No murmur heard. Pulmonary/Chest: Effort normal and breath sounds normal. No respiratory distress. She has no wheezes. Abdominal: Soft. She exhibits no distension. There is no rebound. General epigastric tenderness Musculoskeletal: Normal range of motion. Neurological: She is alert and oriented to person, place, and time. Skin: ASSESSMENT and PLAN: ICD-9-CM ICD-10-CM 1. Migraine headache 346.90 G43.909 topiramate (TROKENDI XR) 200 mg Extended Release 24 hour capsule sulfamethoxazole-trimethoprim (BACTRIM DS) 800-160 mg tablet ondansetron (ZOFRAN ODT) 4 mg Tablet, Rapid Dissolve 2. Nausea 787.02 R11.0 Likely MRSA skin infection. Bactrim for possible systemic signs of nausea and fatigue. Conservativemeasures per AVS. F/U with PCP at end of week. Rene Laguerre DO, 11/16/2013 3:15 PM * Leann Maya RN - 11/16/2013 2:31 PM CDT Ambulatory to treatment room with c/o discomfort to insect bite to rt upper breast area noted yesterday but states painful today and frequently noted to be rubbing it. Pt reports she assumes insectbit her. Area raised w/erythema. C/o MERCADO w/nausea. Skin warm and dry. Alert, coherent. documented in this encounter Miscellaneous Notes * Patient Instructions - Rene Laguerre DO - 11/16/2013 3:11 PM CDT Images from the original note were not included. [facility] Patient Instructions Skin Abscess: After Your Visit Your Care Instructions A skin abscess is a bacterial infection that forms a pocket of pus. A boil is a kind of skin abscess. The doctor may have cut an opening in the abscess so that the pus can drain out. You may have gauze in the cut so that the abscess will stay open and keep draining. You may need antibiotics. You will need to follow up with your doctor to make sure the infection has gone away. The doctor has checked you carefully, but problems can develop later. If you notice any problems ornew symptoms, get medical treatment right away. Follow-up care is a prieto part of your treatment and safety. Be sure to make and go to all appointments, and call your doctor if you are having problems. It's also a good idea to know your test resultsand keep a list of the medicines you take. How can you care for yourself at home? ?? Apply warm and dry compresses, a heating pad set on low, or a hot water bottle 3 or 4 times a day for pain. Keep a cloth between the heat source and your skin. ?? If your doctor prescribed antibiotics, take them as directed. Do not stop taking them just because you feel better. You need to take the full course of antibiotics. ?? Take pain medicines exactly as directed. ?? If the doctor gave you a prescription medicine for pain, take it as prescribed. ?? If you are not taking a prescription pain medicine, ask your doctor if you can take an [id number] medicine. ?? Keep your bandage clean and dry. Change the bandage whenever it gets wet or dirty, or at least one time a day. ?? If the abscess was packed with gauze: ?? Keep follow-up appointments to have the gauze changed or removed. If the doctor instructed you to remove the gauze, gently pull out all of the gauze when your doctor tells you to. ?? After the gauze is removed, soak the area in warm water for 15 to 20 minutes 2 times a day, until the wound closes. When should you call for help? Call your doctor now or seek immediate medical care if: ?? You have signs of worsening infection, such as: ?? Increased pain, swelling, warmth, or redness. ?? Red streaks leading from the infected skin. ?? Pus draining from the wound. ?? A fever. Watch closely for changes in your health, and be sure to contact your doctor if: ?? You do not get better as expected. Where can you learn more? Go to [employer], choose I Want To... and then choose Search Medical Information. Enter D633 in the search box to learn more about Skin Abscess: After Your Visit. Current as of: July 01, 2013 Content Version: 10.1 ?? [id number] [employer]. Care instructions adapted under license by [employer]. [facility] disclaims any warranty or liability for your use of this information. This information is not intended to represent the ethical and confucianism beliefs of [facility]. This care instruction is for use with your licensed healthcare professional. If you have questions about a medical condition or this instruction, always ask your healthcare professional. [employer] disclaims any warranty or liability for your use of this information. documented in this encounter Plan of Treatment Not on file documented as of this encounter Visit Diagnoses Diagnosis Migraine headache- Primary Migraine, unspecified, without mention of intractable migraine without mention of status migrainosus Nausea Nausea alone documented in this encounter
--- OUTSIDE RECORDS SUMMARY | 2024-04-29 19:22 | XMS_ITS | Encounter Summary ---
Author Organization [facility] Address [address] [place] [id number] Phone Care Team Providers Care Refractory Manager Name Role Phone Kumar CARRILLO MD, Cash Howard Unavailable [phone] Bhupinder Tobias MD Primary Care Provider [phone] Jorge Aguiar MD Unavailable [phone] Khoa Arias MD Unavailable [phone] Encounter Details Date Type Department Care Team (Late st Contact Info) Description 02/26/2022 11:15 AM PROGRAM DIRECTOR GROUP WORK Office Visit [facility] [address] [place] [phone] Miriam Frye PA [address] [place] [place] [phone] Psoriatic arthritis (HCC) (Primary Dx); Encounter for long-term (current) use of medications Social History Tobacco Use Types Packs/Day Years [...] on file Legal Sex Female 9:24 PM PROGRAM DIRECTOR GROUP WORK Gender Identity Female 08/14/2022 11:32 AM CDT Sexual Orientation Straight 02/13/2023 7: 01 AM CDT documented as of this encounter Last Filed Vital Signs Vital Sign Reading Time Taken Comments Blood Pressure 122/86 02/26/2022 11:31 AM PROGRAM DIRECTOR GROUP WORK Pulse 95 02/26/2022 11:31 AM PROGRAM DIRECTOR GROUP WORK Temperature - - Respiratory Rate - - Oxygen Saturation 100% 02/26/2022 11:31 AM PROGRAM DIRECTOR GROUP WORK Inhaled Oxygen Concentration - - Weight 89.2 kg (196 lb 9.6 oz) 02/26/2022 11:31 AM PROGRAM DIRECTOR GROUP WORK Height 166.4 cm (5' 5.5 ) 02/26/2022 11:31 AM CS T Body Mass Index 32.22 02/26/2022 11:31 AM PROGRAM DIRECTOR GROUP WORK documented in this encounter Progress Notes * Miriam Frye PA - 02/26/2022 11:15 AM CST Images from the original note were not included. Subjective/Objective Patient ID: Julian Smith is a 46 y.o. female. Chief Complaint PsA HPI Hands are painful. Thinks it is also due to weather since it has gotten cooler No rashes. Has hx ofnose ulcers. No fever or cough. Off arava due to hx of lipase elevation although per gi workup negative. Her orencia is scheduled tomorrow. Seeing gi at [facility] now. [place] and egd utd and nl in past year per pt. No sob, cp, rashes, oral or nose ulcers. No infections. Having bile reflux and gastritis on recent egd with gi. Still has her gallbladder.feels better after her orencia iv, Review of Systems Constitutional: Negative for fatigue and fever. HENT: Negative for mouth sores. Respiratory: Negative for cough, chest tightness and shortness of breath. Cardiovascular: Negative for chest pain. Skin: Negative for rash. Physical Exam Constitutional: She appears well-developed and well-nourished. Obese. Head: Normocephalic and atraumatic. Right Ear: External ear normal. Left Ear: External ear normal. Nose: Nose normal. Mouth/Throat: Oropharynx is clear and moist. Eyes: Conjunctivae and lids are normal. Pupils are equal, round, and reactive to light. Neck: Neck supple. Cardiovascular: Normal rate, regular rhythm and normal heart sounds. Pulmonary/Chest: Effort normal and breath sounds normal. Musculoskeletal: see cdai. Lymphadenopathy: No lymphadenopathy. Neurological: Alert and oriented x 3. Skin: Skin is warm and dry. Psychiatric: Normal mood. Vitals reviewed. CDAI: 24 Labs Lab Results Component Value Date WBC 7.9 12/28/2021 HGB 13.2 12/28/2021 HCT 41.4 12/28/2021 MCV 89.4 12/28/2021 Lab Results Component Value Date GLUCOSE 91 12/28/2021 CALCIUM 9.0 12/28/2021 SODIUM 136 12/28/2021 POTASSIUM 4.2 12/28/2021 CO2 25 12/28/2021 CHLORIDE 102 12/28/2021 BUNSER 15 12/28/2021 CREATININE 1.10 (H) 12/28/2021 Lab Results Component Value Date ALT 22 12/28/2021 AST 16 12/28/2021 ALKPHOS 91 12/28/2021 BILITOT 0.4 12/28/2021 Lab Results Component Value Date SEDRATE 17 12/28/2021 Lab Results Component Value Date CRP 12.9 (H) 12/28/2021 Assessment/Plan Diagnoses and all orders for this visit: Psoriatic arthritis (HCC) (Primary) Assessment & Plan: High cdai. Her orencia is scheduled tomorrow. Continue orencia monotherapy. Off arava due to lipaseelevation. Seeing gi at [facility] now. [place] and egd utd and nl in past year per pt. Had a nl pancreatic US recently with gi. She could be flaring up since her orencia is due tomorrow, overall she still feels that it is helping her joints. Past serologies: [facility] panel 08/2019---labs reveal positive anti-ASSOCIATE DEAN antibody which is likely a false positive due tonegative ASHLEY. RF neg but has a possible family hx of psoriatic arthritis (father) so if she develops psoriasis diagnosis will change to psoriatic arthritis. Rt hand US 09/2019 showed: F/u 1 month. Orders: - CBC with auto differential; Future - CRP (acute phase); Future - Erythrocyte sedimentation rate; Future - Comprehensive metabolic panel; Future Encounter for long-term (current) use of medications Assessment & Plan: Quant gold neg 12/2019 Hep B and C neg 2015 and 01/2020 HLA B27 negative 12/2019 TPMT nl 17 Weight loss with imuran, stopped it 01/2017 azathiprine stopped 03/31/21 due to elevated lipase, changed to arava. Mtx stopped due to side effects 2016 Failed Humira Failed Stelara Plaquenil failure Failed Stelara, stopped 11/07/2020 Diarrhea with Cosentyx. Failed Orencia GI upset with Cosentyx, stopped 05/2020 Imuran caused weight loss 2016, TPMT wnl at 17 in 2016 HLA B27 neg 12/2019 Failed Enbrel and humira TPMT wnl 06/2016 BDS done by pcp 2018 and it showed osteoporosis [facility] 08/2019---[facility] labs reveal positive anti-ASSOCIATE DEAN antibody which is likely a false positive due tonegative ASHLEY. Her father had psoriasis, pt changed from ra to PsA on 03/25/2020. Orders: - CBC with auto differential; Future - CRP (acute phase); Future - Erythrocyte sedimentation rate; Future - Comprehensive metabolic panel; Future Cosigned by Cash Heath III, MD at 02/26/2022 3:55 PM PROGRAM DIRECTOR GROUP WORK RAM DIRECTOR GROUP WORK RAM DIRECTOR GROUP WORK documented in this encounter Miscellaneous Notes * Assessment & Plan Note - Miriam Frye PA - 02/26/2022 8:16 AM CSTAssociated Problem(s): Psoriatic arthritis (HCC) Images from the original note were not included. High cdai. Her orencia is scheduled tomorrow. Continue orencia monotherapy. Off arava due to lipaseelevation. Seeing gi at [facility] now. [place] and egd utd and nl in past year per pt. Had a nl pancreatic US recently with gi. She could be flaring up since her orencia is due tomorrow, overall she still feels that it is helping her joints. Past serologies: [facility] panel 08/2019---labs reveal positive anti-ASSOCIATE DEAN antibody which is likely a false positive due tonegative ASHLEY. ?? RF neg but has a possible family hx of psoriatic arthritis (father) so if she develops psoriasis diagnosis will change to psoriatic arthritis. Rt hand US 09/2019 showed: ??F/u 1 month. RAM DIRECTOR GROUP WORK RAM DIRECTOR GROUP WORK * Assessment & Plan Note - Miriam Frye PA - 02/26/2022 8:16 AM CSTAssociated Problem(s): Encounter for long-term (current) use of medications Quant gold neg 12/2019 Hep B and C neg 2015 and 01/2020 HLA B27 negative 12/2019 TPMT nl 17 Weight loss with imuran, stopped it 01/2017 azathiprine stopped 03/31/21 due to elevated lipase, changed to arava. Mtx stopped due to side effects 2016 Failed Humira Failed Stelara Plaquenil failure Failed Stelara, stopped 11/07/2020 Diarrhea with Cosentyx. Failed Orencia GI upset with Cosentyx, stopped 05/2020 Imuran caused weight loss 2016, TPMT wnl at 17 in 2016 HLA B27 neg 12/2019 Failed Enbrel and humira TPMT wnl 06/2016 BDS done by pcp 2018 and it showed osteoporosis [facility] 08/2019---[facility] labs reveal positive anti-ASSOCIATE DEAN antibody which is likely a false positive due tonegative ASHLEY. Her father had psoriasis, pt changed from ra to PsA on 03/25/2020. ?? RAM DIRECTOR GROUP WORK documented in this encounter Plan of Treatment Not on file documented as of this encounter Procedures Procedure Name Priority Date/Time Associated Diagnosis Comments CBC WITH AUTO DIFFERENTIAL Routine 02/26/2022 11:59 AM PROGRAM DIRECTOR GROUP WORK Psoriatic arthritis (HCC) Encounter for long-term (current) use of medications ERYTHROCYTE SEDIMENTATION RATE Routine 02/26/2022 11:59 AM PROGRAM DIRECTOR GROUP WORK Psoriatic arthritis (HCC) Encounter for long-term (current) use of medications CRP (ACUTE PHASE) Routine 02/26/2022 11: 59 AM PROGRAM DIRECTOR GROUP WORK Psoriatic arthritis (HCC) Encounter for long-term (current) use of medications COMPREHENSIVE METABOLIC PANEL Routine 02/26/2022 11:59 AM PROGRAM DIRECTOR GROUP WORK Psoriatic arthritis (HCC) Encounter for long-term (current) use of medications documented in this encounter Results * Comprehensive metabolic panel (02/26/2022 11:59 AM PROGRAM DIRECTOR GROUP WORK) Glucose 83 65 - 99 mg/dL [facility] Comment: ? Fasting reference interval BUN 15 7 - 25 mg/dL [facility] Creatinine 0.97 0.50 - 0.99 mg/dL [facility] eGFR 73 > OR = 60 mL/min/1. 73m2 [facility] Comment: The eGFR is based on the CKD-EPI 2020 equation. To calculate the new eGFR from a previous Creatinine or Cystatin C result, go to https://www.kidney.org/professionals/ kdoqi/gfr%5Fcalculator BUN/creat ratio NOT APPLICABLE 6 - 22 (calc) [facility] Sodium 136 135 - 146 mmol/L [facility] Potassium, pl 4.4 3.5 - 5.3 mmol/L [facility] Chloride 104 98 - 110 mmol/L [facility] CO2 25 20 - 32 mmol/L [facility] Calcium 9.6 8.6 - 10.2 mg/dL [facility] Protein, sr 7.1 6.1 - 8.1 g/dL [facility] Albumin 4.4 3.6 - 5.1 g/dL [facility] GLOBULIN 2.7 1.9 - 3.7 g/dL (calc) [facility] Alb/glob ratio 1.6 1.0 - 2.5 (calc) [facility] Bilirubin, total 0.3 0.2 - 1.2 mg/dL [facility] Alk phos 64 31 - 125 U/L [facility] AST 14 10 - 35 U/L [facility] ALT (SGPT) 15 6 - 29 U/L [facility] Blood 02/26/2022 11:5 9 AM PROGRAM DIRECTOR GROUP WORK 02/26/2022 11:59 AM PROGRAM DIRECTOR GROUP WORK Miriam VALLE LAB BLOOD ORDERAB LES Final Result Performing Organization Address City/[facility] Co de Phone Number QUEST [facility] [address] [place] [address] * Erythrocyte sedimentation rate (02/26/2022 11:59 AM PROGRAM DIRECTOR GROUP WORK) Pathologist [facility] Erythrocyte sedimentation rate 6 < OR = 20 mm/h [facility] Blood 02/26/2022 11:5 9 AM PROGRAM DIRECTOR GROUP WORK 02/26/2022 11:59 AM PROGRAM DIRECTOR GROUP WORK Miriam VALLE LAB BLOOD ORDERAB LES Final Result Performing Organization Address [facility] Co de Phone Number [facility]ST [facility] [address] [place] [address] * CRP (acute phase) (02/26/2022 11:59 AM PROGRAM DIRECTOR GROUP WORK) Pathologist [facility] C-RP 6.2 <8.0 mg/L [facility] Blood 02/26/2022 11:5 9 AM PROGRAM DIRECTOR GROUP WORK 02/26/2022 11:59 AM PROGRAM DIRECTOR GROUP WORK Miriam VALLE LAB BLOOD ORDERAB LES Final Result Performing Organization Address [facility] de Phone Number QUEST [facility] [address] [place] [address] * CBC with auto differential (02/26/2022 11:59 AM PROGRAM DIRECTOR GROUP WORK) WBC 7.3 3.8 - 10.8 Thousand/u L [facility] RBC, POC 4.83 3.80 - 5.10 Million/uL [facility] Hgb 13.6 11.7 - 15.5 g/dL [facility] Hct 41.7 35.0 - 45.0 % [facility] MCV 86.3 80.0 - 100.0 fL [facility] MCH 28.2 27.0 - 33.0 pg [facility] MCHC 32.6 32.0 - 36.0 g/dL [facility] Rdw 13.1 11.0 - 15.0 % [facility] Platelets 343 140 - 400 Thousand/u L [facility] MPV 9.6 7.5 - 12.5 fL [facility] Neutrophils, abs 5,366 1,500 - 7,800 cells/uL [facility] Lymphocytes, abs 1,307 850 - 3,900 cells/uL [facility] Monocyte abs 438 200 - 950 cells/uL [facility] Eosinophils, abs 102 15 - 500 cells/uL [facility] Basophils, abs 88 0 - 200 cells/uL [facility] Neutrophils 73.5 % [facility] Lymphocyte pct 17.9 % [facility] Monocytes 6.0 % [facility] Eosinophils 1.4 % [facility] Basophils 1.2 % [facility] Blood 02/26/2022 11:5 9 AM PROGRAM DIRECTOR GROUP WORK 02/26/2022 11:59 AM PROGRAM DIRECTOR GROUP WORK us Miriam VALLE LAB BLOOD ORDERAB LES Final Result [facility] [address] [place] [address] documented in this encounter Visit Diagnoses Diagnosis Psoriatic arthritis (HCC)- Primary Psoriatic arthropathy Encounter for long-term (current) use of medications Encounter for long-term (current) use of other medications documented in this encounter Care Teams Refractory Manager Relationship Specialty Start Date End Date Bhupinder Tobias MD [address] [place] [address] PCP - General Internal Medicine 06/03/20 Cash Heath III, MD [address] [facility] [address] [place] [address] Rheumatology 04/12/17 Jorge Aguiar MD [address] [facility] [address] [place] [address] Consulting Physician Urology 11/10/20 Khoa Arias MD [address] [facility] [address] [place] [address] Referring Physician Gastroenterology 03/20/21 documented as of this encounter
--- OUTSIDE RECORDS SUMMARY | 2024-04-29 19:22 | XMS_ITS | Encounter Summary ---
Author Organization [facility] Address [address] [place] [address] Phone Care Team Providers Care Lidar Analyst Name Role Phone Kumar CARRILLO MD, Cash Howard Unavailable [phone] Bhupinder Tobias MD Primary Care Provider [phone] Jorge Aguiar MD Unavailable [phone] Khoa Arias MD Unavailable [phone] Encounter Details Date Type Department Care Team (Late st Contact Info) Description 11/27/2021 Telephone [facility] [address] [place] [phone] Maisha Avila, RN Social History Tobacco Use Types Packs/Day Years Used Date Smoking Tobacco: Former Cigarettes Q uit: 2013 Smokeless Tobacco: Never Alcohol Use Standard Drinks/Week Comments No 0 (1 standard drink = 0.6 oz pur e alcohol) AUDIT-C Answer Date Recorded Q1: How often do you have a drink containing alc ohol? Monthly or less 08/31/2021 Q2: How many drinks containi ng alcohol do you have on a typical day when you are drinking? 1 or 2 08/31/2021 Q3: How often do you have si x or more drinks on one occasion? 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 I had COVID. Here is a list of when everything started- -I started exhibiting symptoms on 11/10/21 - I first tested with the antigen test on 11/13/21: positive - The second test I took was (12/15/21): negative - I just took one this morning (11/27/21): negative I don't want to infect someone accidentally, but I really want to make the infusion appt at 9:45 am. I live in [place], so it takes me about 45 minutes to get to your office. If someone will call mebefore if the answer is stay home , that will be fine. I just would have to start over again on the Orencia with the loading doses and I really don't. I will if I have to, but I hope Thank you!!!! Julian Smith - infusion appt is at 9:45 today. documented in this encounter Plan of Treatment Not on file documented as of this encounter Visit Diagnoses Not on filedocumented in this encounter Care Teams Lidar Analyst Relationship Specialty Start Date End Date Bhupinder Tobias MD [address] [facility] [address] [place] [address] PCP - General Internal Medicine 06/03/20 Cash Heath III, MD [address] [facility] [address] [place] [address] Rheumatology 04/12/17 Jorge Aguiar MD [address] [address] Consulting Physician Urology 11/10/20 Khoa Arias MD [address] [address] Referring Physician Gastroenterology 03/20/21 documented as of this encounter
--- OUTSIDE RECORDS SUMMARY | 2024-04-29 19:22 | XMS_ITS | Encounter Summary ---
Author Organization [facility] Address [address] [place] [address] Care Team Providers Care Public Relations Senior Associate Name Role Phone Kumar CARRILLO MD, Cash Howard Unavailable [phone] Bhupinder Tobias MD Primary Care Provider [phone] Jorge Aguiar MD Unavailable [phone] Khoa Arias MD Unavailable [phone] Encounter Details Date Type Department Care Team (Latest Contact Info) Description 08/21/2022 9:55 AM CDT - 08/21/2022 11:59 PM CDT Hospital Encounter [facility] [address] [place] [phone] Discharge Disposition: Discharge to home or self care Social History Tobacco Use Types Packs/Day Years Used Date Smoking Tobacco: Former Cigarettes 0.5 10 0 04/22/2002 - 04/22/2012 Smokeless Tobacco: Never Alcohol Use Standard Drinks/Week Comments Yes 0 (1 standard drink = 0.6 oz pur e alcohol) socially AUDIT-C Answer Date Recorded Q1: How often do you have a drink containing alc ohol? 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 Gender Identity Female 08/14/2022 11:32 AM CDT Sexual Orientation Straight 02/13/2023 7: 01 AM CDT documented as of this encounter Medications at Time of Discharge ALPRAZolam (XANAX) 1 mg tablet Take 1 mg by mouth 3 (three) times a day 08/03/2021 buPROPion XL (WELLBUTRIN XL) 300 mg 24 hr tablet Take 300 mg by mouth dicyclomine (BENTYL) 10 mg capsule Take 10 mg by mouth every 6 hours as needed 07/23/[address] (CYMBALTA) 60 mg capsule 60 mg daily gabapentin (NEURONTIN) 100 mg capsule Take 1 capsule (100 mg total) by mouth 3 (three) times a day 180 capsule 11 11/29/2021 HYDROcodone-acetamin ophen (NORCO) 5-325 mg per tabletIndications:Pa in Take 1 tablet by mouth every 4 (four) hours as needed for pain Do not exceed 8 tablets/day. 10 tablet 06/30/2021 ondansetron ODT (ZOFRAN-ODT) 8 mg disintegrating tablet DISSOLVE 1 TABLET(8 MG) ON THE TONGUE EVERY 8 HOURS NEEDED FOR NAUSEA OR VOMITING 60 tablet 04/25/[address] (PROTONIX) 40 mg EC tablet TAKE 1 TABLET(40 MG) BY MOUTH DAILY 30 MINUTES BEFORE BREAKFAST 12/21/2015 potassium citrate ER (UROCIT-K) 15 mEq tablet extended release TK 1 T PO BID 6 12/19/2018 propranoloL (INDERAL) 10 mg tablet Take 10 mg by mouth daily 08/03/2021 sucralfate (CARAFATE) 1 gram tablet Take 1 tablet (1 g total) by mouth 4 (four) times a day 120 tablet 08/22/2022 SUMAtriptan (IMITREX) 50 mg tabletIndications:Mi graine TK 1 T PO AOS OF MIGRAINE. MAY REPEAT AFTER 2 H IF MERCADO RETURNS. MAXIMUM 4 TS IN 24 H 0 07/09/2016 tamsulosin (FLOMAX) 0.4 mg extended release capsuleIndications:U rolithiasis Take 1 capsule (0.4 mg total) by mouth daily 30 capsule 06/30/2021 traZODone (DESYREL) 100 mg tablet Take 100 mg by mouth triamcinolone (KENALOG) 0.1 % paste APPLY TO NASAL PASSAGE TWICE DAILY NEEDED 15 g 04/25/2022 Trulance 3 mg tablet Take 1 tablet by mouth daily 11/01/2021 alendronate (FOSAMAX) 70 mg tablet 1 09/02/2018 3 AMITIZA 24 mcg capsule TK ONE C PO BID WF AND WATER 1 12/15/2018 3 diclofenac sodium 20 mg/gram /actuation(2 %) solution in metered-dose pump Apply 40 mg topically 2 (two) times a day 112 g 1 10/19/2019 3 polyethylene glycol (MIRALAX) 17 gram/dose powder Take 17 g by mouth 2 (two) times a day as needed 12/29/2018 3 predniSONE (DELTASONE) 5 mg tablet 2 tabs po every day x 5d, 1 tab po every day x 5d and 1/2 tab po every day x 5 d. 40 tablet 09/11/2021 3 Saccharomyces boulardii (FLORASTOR) 250 mg capsule Take 250 mg by mouth 02/02/2017 3 sucralfate (CARAFATE) 1 gram tablet Take 1 tablet (1 g total) by mouth 4 (four) times a day 120 tablet 08/22/2022 3 documented as of this encounter Discharge Disposition Disposition Code Departure Means Destination Discharge to home or self care documented in this encounter Plan of Treatment Not on file documented as of this encounter Procedures Procedure Name Priority Date/Time Associated Diagnosis Comments CT BODY OUTSIDE REFERENCE Routine 08/21/2022 9:55 AM CDT Diagnosis unknown documented in this encounter Results * CT Body Outside Reference (08/21/2022 9:55 AM CDT) Impressions RAD_PACS_[facility] - 08/21/2022 9:55 AM CDT These images are for Reference purposes only and have not been reviewed by [facility] Radiology. ??There will be no report generated by a [facility] Radiologist. Narrative [facility]_PACS_[facility] - 08/21/2022 9:55 AM CDT EXAMINATION: ??Images For Reference Purposes Only us Jose De Jesus Calderon MD IMG CT PROCEDURES Final Resu lt RAD_PACS_[facility] documented in this encounter Visit Diagnoses Not on filedocumented in this encounter Care Teams Public Relations Senior Associate Relationship Specialty Start Date End Date Bhupinder Tobias MD [address] [place], [place] [id number] PCP - General Internal Medicine 06/03/20 Cash Heath III, MD [address] [place] [address] Rheumatology 04/12/17 Jorge Aguiar MD [address] [place], [place] [id number] Consulting Physician Urology 11/10/20 Khoa Arias MD [address] [place], [place] [id number] Referring Physician Gastroenterology 03/20/21 documented as of this encounter
--- OUTSIDE RECORDS SUMMARY | 2024-04-29 19:22 | XMS_ITS | Continuity of Care Document ---
Author Organization [facility] Address [address] [place] [address] Phone Care Team Providers Care Director Business Systems Name Role Phone Amadeo Arias MD Unavailable Unavailable Allergies, Adverse Reactions, Alerts Substance Reaction Status Criticality No Known Allergies Active No Inform ation Medications Medication Instructions Dosage Effective Dates (start - stop) Status Comments PLAQUENIL (unknown strength) Not Available - Active TOPIRAMATE (unknown strength) Not Available - Active SUMATRIPTAN SUCCINATE (unknown strength) Not Available - Active PANTOPRAZOLE SODIUM (unknown strength) Not Available - Active HYOSCYAMINE SULFATE (unknown strength) Not Available - Active Procedures Procedure Date OFFICE/OUTPATIENT VISIT EST OFFICE CONSULTATION Advance Directives Directive Yes / No Effective Date File Name No Information Encounters Encounter Description Practice Location Reason(s) For Visit Diagnoses Date Provider Providers Copied on Encounter OFFICE/OUTPAT IENT VISIT EST [facility], [address] [address], [place], [address], tel:[phone] [facility] [place] Patellofemoral instability, rightOther specified sprain of right wrist, initial encounter 0 6 Hugo Childs. [address], [place], [place], [id number] . tel: [phone] [facility], [address], [place], [address], [place] tel:[phone] [facility] Acute bilateral low back pain without sciaticaLeft hip painArthralgia of right hipPatellofemo ral instability, leftPatellofem oral instability, right 6 Hugo Childs. [address], [place], [place], [id number] . tel: [phone] OFFICE CONSULTATION [facility], [address], [place], [address], tel:[phone] [facility] [place] Patellofemoral instability, rightPatellofe moral instability, leftArthralgia of right hipLeft hip painAcute bilateral low back pain without sciatica 201 6 Hugo Childs. [address], [place], [place], [id number] . tel: [phone] Referring Provider: Michelle De La Torre[address], [place], [address] . tel:[phone] Family History Family Member Type Diagnosis Age At Onset Sister Problem (finding) Alive and well Payers Payer name Insurance type Covered republican ID Authoriza tion(s) [facility] Choice/Choice Plus [id number] Social History Type Description Quantity Date Captured Comments Alcohol Use Details Unknown Caffeine Use Details Unknown Tobacco Use Status Smoking Status No Information Sex Female Chief Complaint And Reason For Visit No Information Reason For Referral Reason For Referral No Information Plan Of Treatment Date Type Action Status Referral Ordered: RADEX KNE COMPL 4/MORE VIEWS RT ordered Referral Ordered: RADEX PELVIS 1/2 VIEWS ordered Referral Ordered: RADEX KNE COMPL 4/MORE VIEWS LT ordered History Of Present Illness Encounter Date Complaint History Of Prese nt Illness No Information Functional Status Date Functional Assessmen t No Information Instructions Date Instruction Additional Infor mation No Information Assessments Type Assessment Date assessment Patellofemoral instability, righ t assessment Other specified sprain of right wrist, initial encounter Patient Care Teams Name Effective Dates (start - stop) Status Members No Information
--- OUTSIDE RECORDS SUMMARY | 2024-04-29 19:22 | XMS_ITS | Encounter Summary ---
Author Organization [facility] Address [address] [facility] [address] [place] [address] Phone Care Team Providers Care Supervisor Shop Name Role Phone Kumar CARRILLO MD, Cash Howard Unavailable [phone] Bhupinder Tobias MD Primary Care Provider [phone] Jorge Aguiar MD Unavailable [phone] Khoa Arias MD Unavailable [phone] Encounter Details Date Type Department Care Team (Late st Contact Info) Description 11/29/2021 2:15 PM CDT Office Visit [facility] [address] [place] [address] Medical Office [address], [address] [place] [address] Devin Miller MD [address] [place] [address] Diarrhea, unspecified type (Primary Dx) Social History Tobacco Use [...] Average Number of Drinks Not on file 08/10/2 022 Frequency of Binge Drinking Not on file 11/20 Comments No Sex and Gender Information Value Date Recorded Sex Assigned at Not on file 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 Gender Identity Female 08/14/2022 11:32 AM CDT Sexual Orientation Straight 02/13/2023 7: 01 AM CDT documented as of this encounter Last Filed Vital Signs Vital Sign Reading Time Taken Comments Blood Pressure 131/87 11/29/2021 3:39 PM CDT Pulse 99 11/29/2021 3:39 PM CDT Temperature - - Respiratory Rate - - Oxygen Saturation - - Inhaled Oxygen Concentration - - Weight 88.6 kg (195 lb 6.4 oz) 11/29/2021 3:39 P M CDT Height 166.4 cm (5' 5.5 ) 11/29/2021 3:39 PM CDT Body Mass Index 32.02 11/29/2021 3:39 PM CDT documented in this encounter Ordered Prescriptions Prescription Sig Dispense Quantity Refills Last Filled Start Date End Date gabapentin (NEURONTIN) 100 mg capsule Take 1 capsule (100 mg total) by mouth 3 (three) times a day 180 capsule 11 11/29/2021 documented in this encounter Progress Notes * Devin Miller MD - 11/29/2021 2:15 PM CDT History of Present Illness 46-year-old female with a past medical history of Meredith-Danlos syndrome, psoriasis, migraine, anxiety, kidney stones, IBS C (treated Amitiza) presents in consultation for elevated lipase and abdominal pain. Mrs. Smith reports having suffered with psoriasis for many years. She reports having been treatedwith biologics, methotrexate and lastly azathioprine. She reports experiencing an onset of epigastric and left upper quadrant pain that radiates to the left flank in 2019. She reports she will have 1-2 days a week without pain however has general pain from upon wakening in the morning and throughout the day. During workup for her symptoms, she was found to have elevated lipase levels. She was told she has acute on chronic pancreatitis. Based on records provided to us, the lipase has been less than 3 times the upper limit of normal however persistently elevated. Based on records also available to us and report from the patient, she has undergone multiple cross-sectional imaging studies including MRCP, CT and CTA that has not shown any abnormality to suggest pancreas inflammation, underlying pathology or changes of chronic pancreatitis. Per her report some of these cross sectional imaging studies have come at times of pain. She reports having been treated with neuro modulating agents such as Lyrica, gabapentin that did not help her symptoms, currently Cymbalta and now Scotia 5/325 1 tablet every 4 hours (since 05/2021). Also at one point was recommended to try nortriptyline however she read the side effect profile and decided not to takethe med. Her build automation engineer felt that the elevated lipase symptoms possibly could have been caused by azathioprine and this was stopped a few months ago. Despite this, her lipase remains elevated and her painhas not changed. She reports a history of IBS C for which he has been treated with Amitiza successfully. Since the onset of abdominal pain, she is having intermittent diarrhea when the pain is at its worst and holds her Amitiza on those days. Otherwise she denies fever, chills, jaundice, bloody/tarry stools or unexplained weight loss. Past Medical History: Diagnosis Date Diverticulitis Meredith-Danlos syndrome Hemorrhoid IBS (irritable bowel syndrome) Kidney stone Migraine RA (rheumatoid arthritis) (HCC) Past Surgical History: Procedure Laterality Date SECTION COLONOSCOPY FACIAL SURGERY KNEE SURGERY knee surgery LITHOTRIPSY TONSILLECTOMY UPPER GASTROINTESTINAL ENDOSCOPY Social History Social History Narrative Not on file Allergies Allergen Reactions Ibuprofen Nausea & Vomiting Stomach ulcers - tablets - okay with IV Scheduled Meds: Continuous Infusions:No current facility-administered medications for this visit. PRN Meds:. Review of Systems Review of Systems Constitutional: Negative. HENT: Negative. Respiratory: Negative. Cardiovascular: Negative. Gastrointestinal: Positive for abdominal pain and constipation. Skin: Negative. Psychiatric/Behavioral: Negative. Physical Exam Physical Exam Constitutional: Appearance: Normal appearance. HENT: Head: Normocephalic. Mouth/Throat: Mouth: Mucous membranes are moist. Cardiovascular: Rate and Rhythm: Normal rate and regular rhythm. Heart sounds: No murmur heard. Pulmonary: Effort: Pulmonary effort is normal. No respiratory distress. Breath sounds: No stridor. Abdominal: General: Abdomen is flat. There is no distension. Palpations: Abdomen is soft. Musculoskeletal: Cervical back: Normal range of motion. Neurological: General: No focal deficit present. Mental Status: She is alert. Psychiatric: Mood and Affect: Mood normal. Behavior: Behavior normal. EXAMINATION: CT CHEST PE (CTA) ABDOMEN PELVIS W CONTRAST HISTORY: 46-year-old female with history of diverticulosis, kidney stones, pancreatitis, presenting with worsening epigastric pain and fever as well as shortness of breath TECHNIQUE: Computed tomographic images were acquired using a chest angiographic protocol optimized for pulmonary embolism. Computed tomographic examination of the abdomen and pelvis with intravenous contrast was performed using a standard protocol. Contrast enhanced transaxial images were obtained following the intravenous administration of 95 ml of nonionic contrast. Multiplanar reformatted images and three-dimensional images were obtained on the 3-D workstation and sent to the PACS archival system. COMPARISON: 06/30/2021 FINDINGS: There is no pulmonary embolism or acute aortic syndrome. Heart size is normal without pericardial effusion. The visualized thyroid is normal. There is no lymphadenopathy in the supraclavicular, axillary, hilar, or mediastinal regions. Calcified mediastinal and left hilar lymph nodes are present, likely sequelae of old granulomatous disease. Lung windows demonstrate patchy areas of groundglass in the right lung with a peripheral and basilar predominance. The left lung is clear. No pleural effusion or pneumothorax. No suspicious hepatic lesions. Tiny hypoattenuating lesion in hepatic segment 6 is indeterminate and unchanged. Small peripherally hyperenhancing lesion in the lower right hemiliver is favored to represent a flash filling hemangioma (series 11, image 64), unchanged. The gallbladder is normal. No biliary ductal dilatation. The adrenal glands and pancreas are normal. Scattered calcified granulomata in the spleen. Small simple cyst in the interpolar region of the left kidney. Multiple tiny nonobstructive renal calculi bilaterally. No hydronephrosis. The stomach and duodenum are normal. The small bowel and colon are normal in caliber without evidence of obstruction. Numerous diverticula are seen along the colon without surrounding stranding. A normal appendix is seen in its entirety. Urinary bladder is unremarkable. The uterus is normal. No suspicious adnexal lesions. No free air or free fluid. The abdominal aorta is normal in course and caliber. Portal, hepatic, superior mesenteric veins are patent. No suspicious lymphadenopathy in the abdomen or pelvis. Sacralized L5. No suspicious osseous lesions. IMPRESSION: 1. No evidence of pulmonary embolism or pancreatitis. 2. Patchy groundglass opacities throughout the right lung with a peripheral and basilar predominance, favored to represent multifocal pneumonia, possibly related to aspiration. Dictated by: Clinton Alonzo M.D. The radiology attending physician has personally reviewed this study, and had reviewed and/or edited this written report and agrees with it. Assessment/Plan 46-year-old female with a past medical history of Meredith-Danlos syndrome, psoriasis, migraine, anxiety, kidney stones, IBS C (treated Amitiza), elevated lipase and abdominal pain. 1. Elevated Lipase/Chronic abdominal pain: Based on repetitive laboratory evaluation since 2019 [place] had mildly elevated lipase levels yet less than 3 times the upper limit of normal. She has alsoundergone multiple cross-sectional imaging studies none of which have shown pancreas inflammation, calcification, pancreatic duct dilation or pancreatic duct irregularities. Etiology of her symptoms is unclear, but would favor to not be related to her pancreas. - We will check IgG4 subclasses and celiac panel - Given that patient only has mildly elevated lipase values and NO characteristic abdominal pain orimaging findings, would suspect that symptoms are not related to pancreas. She should be able to continue with current rheum therapy. Suspect lipase elevations are not related to pancreas and an alternate cause should be investigated. Will discuss with her build automation engineer. 2. IBS-C: She has successfully been treated with Amitiza. She does have episodes of diarrhea when her abdominal pain is at its worst. - Continue with current regimen. documented in this encounter Plan of Treatment Scheduled Orders Name Type Priority Associated Diagnoses Orde r Schedule Pancreatic elastase, stool Lab Routine Diarrhea, unspecified type Expected: 12/06/2021, Expires: 11/29/2022 documented as of this encounter Visit Diagnoses Diagnosis Diarrhea, unspecified type- Primary documented in this encounter Historical Medications * This list may reflect changes made after this encounter. Trulance 3 mg tablet Take 1 tablet by mouth daily 11/01/2021 added in this encounter Care Teams Supervisor Shop Relationship Specialty Start Date End Date Bhupinder Tobias MD [address] [address] PCP - General Internal Medicine 06/03/20 Cash Heath III, MD [address] [facility] [address] [place] [address] Rheumatology 04/12/17 Jorge Aguiar MD [address] [facility] [address] [place] [address] Consulting Physician Urology 11/10/20 Khoa Arias MD [address] [facility] [address] [place] [address] Referring Physician Gastroenterology 03/20/21 documented as of this encounter
--- OUTSIDE RECORDS SUMMARY | 2024-04-29 19:22 | XMS_ITS | Encounter Summary ---
Author Organization [facility] Address [address] [place] [address] Phone Care Team Providers Care Pneumatic Tester Name Role Phone Kumar CARRILLO MD, Cash Howard Unavailable [phone] Bhupinder Tobias MD Primary Care Provider [phone] Jorge Augiar MD Unavailable [phone] Khoa Arias MD Unavailable [phone] Encounter Details Date Type Department Care Team (Late st Contact Info) Description 01/17/2023 Orders Only [facility] ([facility] - 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 Gender Identity Female 08/14/2022 11:32 AM CDT Sexual Orientation Straight 02/13/2023 7: 01 AM CDT documented as of this encounter Plan of Treatment Not on file documented as of this encounter Visit Diagnoses Not on filedocumented in this encounter Discontinued Medications Medication Sig Discontinue Reason Start Date End Da te alendronate (FOSAMAX) 70 mg tablet Other 09/02/2018 01/17/2023 Saccharomyces boulardii (FLORASTOR) 250 mg capsule Take 250 mg by mouth Other 02/02/2017 01/17/2023 AMITIZA 24 mcg capsule TK ONE C PO BID WF AND WATER Other 12/15/2018 01/17/2023 diclofenac sodium 20 mg/gram /actuation(2 %) solution in metered-dose pump Apply 40 mg topically 2 (two) times a day Other 10/19/2019 01/17/2023 polyethylene glycol (MIRALAX) 17 gram/dose powder Take 17 g by mouth 2 (two) times a day as needed Other 12/29/2018 01/17/2023 predniSONE (DELTASONE) 5 mg tablet 2 tabs po every day x 5d, 1 tab po every day x 5d and 1/2 tab po every day x 5 d. Other 09/11/2021 01/17/2023 documented as of this encounter Historical Medications * This list may reflect changes made after this encounter. metoclopramide (REGLAN) 5 mg tablet Take 1 tablet (5 mg total) by mouth daily 12/25/2022 added in this encounter Care Teams Pneumatic Tester Relationship Specialty Start Date End Date Bhupinder Tobias MD [address] [place] [address] PCP - General Internal Medicine 06/03/20 Cash Heath III, MD [address] [place] [address] Rheumatology 04/12/17 Jorge Aguiar MD [address] [facility] [address] [place] [address] Consulting Physician Urology 11/10/20 Khoa Arias MD [address] [facility] [address] [place] [address] Referring Physician Gastroenterology 03/20/21 documented as of this encounter
--- OUTSIDE RECORDS SUMMARY | 2024-04-29 19:22 | XMS_ITS | Encounter Summary ---
Author Organization [facility] Healthcare Address [address] [place] [address] Care Team Providers Care Secondary School Teacher Librarian Name Role Phone Kumar CARRILLO MD, Cash Howard Unavailable [phone] Bhupinder Tobias MD Primary Care Provider [phone] Jorge Aguiar MD Unavailable [phone] Khoa Arias MD Unavailable [phone] Reason for Visit * Reason Comments Abdominal Pain Encounter Details Date Type Department Care Team (Late st Contact Info) Description 07/03/2023 9:54 AM CDT - 07/03/2023 1:58 PM CDT Emergency [facility] Emergency Department [address] [place] [address] Toi Pickering MD [address] [facility] [address] [place] [address] Abdominal pain (Primary Dx) Discharge Disposition: Discharge to home or self [...] of Binge Drinking Not on file 11/20 Personal Safety Answer Date Recorded Have you ever been in or are you currently in a harmful physical or emotional relationship or is someone making you feel afraid or unsafe? 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[employer] Gender Identity Female 08/14/2022 11:32 AM CDT Sexual Orientation Straight 02/13/2023 7: 01 AM CDT documented as of this encounter Last Filed Vital Signs Vital Sign Reading Time Taken Comments Blood Pressure 111/81 07/03/2023 1:30 PM CDT Pulse 91 07/03/2023 1:30 PM CDT Temperature 36.3 ??C (97.4 ??F) 07/03/2023 7:28 AM CD T Respiratory Rate 17 07/03/2023 1:30 PM CDT Oxygen Saturation 98% 07/03/2023 1:30 PM CDT Inhaled Oxygen Concentration - - Weight 90.7 kg (200 lb) 07/03/2023 7:28 AM CDT Height 167.6 cm (5' 6 ) 07/03/2023 7:28 AM CDT Body Mass Index 32.28 07/03/2023 7:28 AM CDT documented in this encounter Discharge Instructions * Discharge Instructions* Toi Pickering MD - 07/03/2023 1:51 PM CDT Follow-up with your regular doctor in the next couple of days. Return for worsening symptoms, nausea, vomiting, fever, or other concerns documented in this encounter Medications at Time of Discharge ALPRAZolam (XANAX) 1 mg tablet Take 1 mg by mouth 3 (three) times a day 08/03/2021 azithromycin (ZITHROMAX) 250 mg tablet Take 1 tablet (250 mg total) by mouth daily Take first 2 tablets together, then 1 every day until finished. 6 tablet 01/13/2023 buPROPion XL (WELLBUTRIN XL) 300 mg 24 hr tablet Take 300 mg by mouth dicyclomine (BENTYL) 10 mg capsule Take 10 mg by mouth every 6 hours as needed 07/23/2018 dicyclomine (BENTYL) 20 mg tablet Take 1 tablet (20 mg total) by mouth 2 (two) times a day 20 tablet 01/13/[address] (CYMBALTA) 60 mg capsule 60 mg daily fluconazole (DIFLUCAN) 150 mg tablet Take 1 tablet orally as directed. 1 tablet 01/13/2023 HYDROcodone-acetamin ophen (NORCO) 5-325 mg per tabletIndications:Pa in Take 1 tablet by mouth every 4 (four) hours as needed for pain Do not exceed 8 tablets/day. 10 tablet 06/30/2021 metoclopramide (REGLAN) 5 mg tablet Take 1 tablet (5 mg total) by mouth daily 12/25/2022 ondansetron ODT (ZOFRAN-ODT) 4 mg disintegrating tablet Take 1 tablet (4 mg total) by mouth every 8 (eight) hours as needed for nausea or vomiting 20 tablet 01/13/2023 ondansetron ODT (ZOFRAN-ODT) 8 mg disintegrating tablet [...] Take 10 mg by mouth daily 08/03/2021 SUMAtriptan (IMITREX) 50 mg tabletIndications:Mi graine TK [...] Take 1 tablet by mouth daily 11/01/2021 documented as of this encounter Discharge Disposition Disposition Code Departure Means Destination Comment s Discharge to home or self care documented in this encounter ED Notes * Toi Pickering MD - 07/03/2023 10:33 AM CDT HPI:Pt here with abdominal pain and in the left lower quadrant, where she normally gets diverticulitis../ Also done with abx for a uti but urine looks really dark. Is eating and drinking but earlier this week had some sort of uri that her son brought home and couldn't keep anything down. Regular doctor told her to come in for imaging. No vomiting now since yesterday. Diarrhea - every day seems togo through same stools - firm at first and then goes to water. Can't tell b/c she has orange stool.Bergen stool been going on for two weeks. No change in diet or supplements. Fevers off and on 99-100, no chest pain, no shob. 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 Arias for GI (HI) PMH: See nurses notes Meds: See nurses notes All: See nurses notes Family history:arthritis, ca Social history:no tobacco, social alcohol, takes gummies Vital signs: reviewed GENERAL: uncomfortable but not acute illness HEENT: PERRL, oropharynx moist NECK: no nuchal rigidity LUNGS: good air entry, no w/r/r CARDIAC: nl s1, s2 , no murmurs, gallops or rubs BACK: no masses or tenderness ABD: non tender, non distended, +bs EXT: no clubbing, cyanosis or edema NEURO: alert, oriented, grossly non focal SKIN: no rashes or masses HPI Chief Complaint Patient presents with Abdominal Pain HPI Patient History: Patient Active Problem List Diagnosis Date Noted Hiatal hernia with GERD 02/13/2023 Diverticulitis large intestine w/o perforation or abscess w/o bleeding 08/14/2022 Abnormal serum level of lipase 12/11/2021 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 syndrome with constipation 08/31/2021 Acute pancreatitis 08/30/2021 Abdominal pain 03/31/2021 Trochanteric bursitis of right hip 01/22/2020 Flu vaccine need 01/22/2020 Chronic pain of both knees 01/22/2020 Trochanteric bursitis of left hip 01/22/2020 Primary osteoarthritis of both knees 10/19/2019 Frequent infections 04/23/2019 Osteoporosis without current pathological fracture 09/18/2018 Rash 08/14/2018 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 Encounter for long-term (current) use of medications 01/31/2017 Abnormal LFTs 01/31/2017 Hypermobile joints 01/31/2017 Psoriatic arthritis (HCC) 01/31/2017 Migraine 06/29/2015 Diverticulosis of colon without diverticulitis 06/29/2015 Kidney stones 09/09/2014 Urinary tract infection 09/09/2014 Past Medical History: Diagnosis Date Autoimmune disease (CMS/HCC) (HCC) Rheumatoid Arthritis Diverticulitis Meredith-Danlos syndrome Hemorrhoid IBS (irritable bowel syndrome) Kidney stone Menstrual problem irregular and heavy Migraine Peptic ulceration RA (rheumatoid arthritis) ([facility]) Past Surgical History: Procedure Laterality Date SECTION COLONOSCOPY 12/15/2015 FACIAL SURGERY KNEE ARTHROSCOPY W/ LATERAL RELEASE 1990, 1991, 2021 KNEE SURGERY knee surgery LITHOTRIPSY TONSILLECTOMY UPPER GASTROINTESTINAL ENDOSCOPY Family History Problem Relation Age of Onset Cancer Other Family history of Cancer, unknown; Lung cancer Other Family history of Cancer, lung; Skin cancer Other Family history of Cancer, skin; Other Other Family history of lymphatic; Crohn's disease Other Family history of Crohn's disease; Arthritis Mother Mental illness Mother Arthritis Father Cancer Father Obesity Father Arthritis Maternal Grandfather Cancer Maternal Grandfather Arthritis Maternal Grandmother Cancer Maternal Grandmother Memory loss Maternal Grandmother Arthritis Paternal Grandfather Cancer Paternal Grandfather Alzheimer's disease Paternal Grandmother Arthritis Paternal Grandmother Memory loss Paternal Grandmother Arthritis Father's Sister Arthritis Father's Brother Diabetes Father's Sister Rashes / Skin problems Son Colon cancer Neg Hx Esophageal cancer Neg Hx Liver cancer Neg Hx Social History Tobacco Use Smoking status: Former Current packs/day: 0.00 Average packs/day: 0.5 packs/day for 10.0 years (5.0 ttl pk-yrs) Types: Cigarettes Start date: 04/22/2002 Quit date: 04/22/2012 Years since quittin.2 Smokeless tobacco: Never Vaping Use Vaping status: Former Substances: Flavoring Substance and Sexual Activity Alcohol use: Yes Comment: socially Drug use: Yes Types: Marijuana Sexual activity: Yes Partners: Male Social History Social History Narrative Not on file Review of Systems Review of Systems Physical Exam ED Triage Vitals Temp Pulse Resp BP SpO2 07/03/2372707/03/2372607/03/2372607/03/2372607/03/23726 36.3 ??C (97.4 ??F) 115 18 137/96 100 % Temp src Heart Rate Source Patient Position BP Location FiO2 (%) 07/03/2327 07/03/23 1012 07/03/23 1100 -- -- Oral Monitor HOB 30 degrees Height Height Method Weight Weight Method 07/03/23727 -- 07/03/23727 -- 1.676 m (5' 6 ) 90.7 kg (200 lb) Physical Exam MDM Medical Decision Making Low likelihood of aortic issue, but most likely c/w diverticulitis flare. Labs reassuring. Pt thought maybe uti but negative labs. Plan for scan and dispo to follow Amount and/or Complexity of Data Reviewed Labs: ordered. Decision-making details documented in ED Course. Radiology: ordered. Risk Prescription drug management. ED Course as of 07/11/23 0744 Time: 07/02 1045 Value: CBC with auto differential(!): WBC 6.1 Hgb 12.1 Hct 38.6 Plt 300 MPV 8.9(!) RBC 4.70 MCV 82.1 MCH 25.7(!) MCHC 31.3(!) RDW CV 15.6(!) RDW SD 46.5 NRBC abs 0.00 Comment: (Reviewed) By: Toi Pickering MD Time: 07/02 1045 Value: Lipase: Lipase, Serum 78 Comment: (Reviewed) By: Toi Pickering MD Time: 07/02 1044 Value: Comprehensive metabolic panel(!): Sodium 141 Potassium, pl 3.8 Chloride 106 CO2 27 Anion gap 8 BUN 10 Creatinine 0.94 Glucose 117 Calcium 8.8 Bilirubin, total 0.2 Protein, pl 7.8 Albumin 4.1 Alk phos 81 ALT 51(!) AST 48(!) Comment: (Reviewed) By: Toi Pickering MD Time: 07/02 1044 Value: Urinalysis, microscopic only(!): WBC, ur 0-5 RBC, ur 0-2 Epithelial cells, squamous, ur 6-10(!) Bacteria, ur Trace(!) Mucous, ur Present(!) Comment: (Reviewed) By: Toi Pickering MD Time: 07/02 1044 Value: Urinalysis reflex to microscopic(!): Color, ur Yellow Clarity, ur Clear Specific gravity, ur 1.025 pH, urine 6.0 Protein, ur ql Trace Glucose, ur ql Negative Ketones, ur Negative Bilirubin, ur Negative Blood, ur Negative Urobilinogen, ur <2.0 Nitrite, ur Negative Leukocyte esterase, ur Trace(!) UA reflex comment Reflex to microscopic UA will be performed. Comment: (Reviewed) By: Toi Pickering MD Time: 07/02 1351 Comment: Discussed findings with patient and their K following up with her structural steel engineer By: Toi Pickering MD Final diagnoses: Abdominal pain Toi Pickering MD 07/11/23 0744 * Joseline Lawson RN - 07/03/2023 9:54 AM CDT Bed: ED3-01 Expected date: Expected time: Means of arrival: Car Comments: Joseline Lawson RN 07/03/23 0954 * Catie Rivas, ANTHONY - 07/03/2023 7:26 AM CDT Pt to ED with mid abdominal pain, has a hx of diverticulitis, states it feels like her usual exacerbation. A/o x4, extensive medical abdominal hx. documented in this encounter Plan of Treatment Not on file documented as of this encounter Procedures Procedure Name Priority Date/Time Associated Diagnosis Comments CT ABDOMEN PELVIS W CONTRAST ED 07/03/2023 12:40 PM CDT URINALYSIS AND REFLEX TO MICROSCOPIC STAT 07/03/2023 9:33 AM CDT URINALYSIS, MICROSCOPIC ONLY STAT 07/03/2023 9:33 AM CDT EGFR STAT 07/03/2023 9:26 AM CDT DIFFERENTIAL AUTO STAT 07/03/2023 9:2 6 AM CDT CBC WITH AUTO DIFFERENTIAL STAT 07/03/2023 9:26 AM CDT LIPASE STAT 07/03/2023 9:26 AM CDT COMPREHENSIVE METABOLIC PANEL STAT 07/03/2023 9:26 AM CDT documented in this encounter Results * CT Abdomen Pelvis W Contrast (07/03/2023 12:40 PM CDT) Anatomical Region Laterality Modality Body N/A Computed Tomogra phy 07/03/2023 12:4 9 PM CDT Impressions 07/03/2023 12:49 PM CDT Multiple nonobstructing renal calculi unchanged from the prior study uncertain if this could be related to the patient's abdominal pain. Electronically signed by: Ana Duval M.D. Narrative 07/03/2023 12:[address] of the abdomen and pelvis with intravenous contrast CLINICAL HISTORY: Left lower quadrant abdominal pain, history of diverticulitis TECHNIQUE: CT the abdomen pelvis was performed following the uneventful intravenous administration of 90 mL of Optiray 350 COMPARISON: CT dated 01/13/2023 FINDINGS: The liver is normal in size, an enhancing lesions are again noted on series 2 image 49 and series 2 image 83 these are likely flash fill hemangioma. The portal veins are patent. The hepatic veins are patent. The splenic vein is patent. The spleen demonstrates multiple calcified granulomata and is otherwise unremarkable. The pancreas is normal in size no pancreatic or peripancreatic fluid collections are noted. A duodenal diverticulum is again noted. The adrenal glands are normal in size. Multiple nonobstructing stones are seen in the upper pole mid zone and lower pole of the right kidney and nonobstructing stones are seen in the upper pole of the left kidney these are all unchanged from the prior study. Parenchymal scar is again noted in the mid zone of the left kidney unchanged from the prior study. The colon is normal in course and caliber, there is no evidence of bowel obstruction. The uterus is absent. The ovaries are normal in appearance. Procedure Note Ana Duval MD - 07/03/2023 CT of the abdomen and pelvis with intravenous contrast CLINICAL HISTORY: Left lower quadrant abdominal pain, history of diverticulitis TECHNIQUE: CT the abdomen pelvis was performed following the uneventful intravenous administration of 90 mL of Optiray 350 COMPARISON: CT dated 01/13/2023 FINDINGS: The liver is normal in size, an enhancing lesions are again noted on series 2 image 49 and series 2 image 83 these are likely flash fill hemangioma. The portal veins are patent. The hepatic veins are patent. The splenic vein is patent. The spleen demonstrates multiple calcified granulomata and is otherwise unremarkable. The pancreas is normal in size no pancreatic or peripancreatic fluid collections are noted. A duodenal diverticulum is again noted. The adrenal glands are normal in size. Multiple nonobstructing stones are seen in the upper pole mid zone and lower pole of the right kidney and nonobstructing stones are seen in the upper pole of the left kidney these are all unchanged from the prior study. Parenchymal scar is again noted in the mid zone of the left kidney unchanged from the prior study. The colon is normal in course and caliber, there is no evidence of bowel obstruction. The uterus is absent. The ovaries are normal in appearance. IMPRESSION: Multiple nonobstructing renal calculi unchanged from the prior study uncertain if this could be related to the patient's abdominal pain. Electronically signed by: Ana Duval M.D. Toi Pickering MD IMG CT PROCEDURES Final Result * (ABNORMAL) Urinalysis, microscopic only (07/03/2023 9:33 AM CDT) WBC, ur 0-5 0 - 5 /HPF RBC, ur 0-2 0 - 2 /HPF [facility] Epithelial cells, squamous, ur 6-10(A) 0 - 5 /HPF [facility] Comment:Suggestive of contam ination. Consider recollection by clean catch. Bacteria, ur Trace(A) [facility] Mucous, ur Present(A ) [facility] Urine 07/03/2023 9:33 AM CDT 07/03/2023 9:40 AM CDT Amarjit Restrepo MD LAB URINE ORDERABLES Final Result [facility] [address] Department [place] [address] * (ABNORMAL) Urinalysis reflex to microscopic (07/03/2023 9:33 AM CDT) Color, ur Yellow Yellow Clarity, ur Clear Clear [facility] Specific gravity, ur 1.025 1.003 - 1.030 [facility] pH, urine 6.0 [facility] Comment: Interpretive Data ? Urine pH is affected by diet, medications, systemic acid-base disturbances, and renal tubular function. ??pH may affect urinary stone formation. ??For example, urine pH below 6.0 may help reduce the tendency for calcium phosphate stones and pH greater than 6.0 may reduce the tendency for uric acid stone formation. Source: [facility] [employer] Current Interpretive Data was last revised on 2017 Protein, ur ql Trace Negative [facility] Glucose, ur ql Negative Negative [facility] Ketones, ur Negative Negative [facility] Bilirubin, ur Negative Negative [facility] Blood, ur Negative Negative [facility] Urobilinogen, ur <2.0 <2.0 mg/dL [facility] Nitrite, ur Negative Negative [facility] Leukocyte esterase, ur Trace(A) Negative [facility] UA reflex comment Reflex to microscopic UA will be performed. [facility] Urine 07/03/2023 9:33 AM CDT 07/03/2023 9:40 AM CDT Amarjit Restrepo MD LAB URINE ORDERABLES Final Result Performing Organization Address City/State/[facility] Co de Phone Number [facility] [address] Department [place] [address] * eGFR (07/03/2023 9:26 AM CDT) eGFR 74 >=60 mL/min/1. 73 m2 Comment: Interpretive Data Reference Interval Normal ?>/= 90 mL/min/1.73m2 Mildly decreased* ? 60 - 89 mL/min/1.73m2 Mildly to moderately decreased ?45 - 59 mL/min/1.73m2 Moderately to severely decreased ??30 - 44 mL/min/1.73m2 Severely decreased ?15 - 29 mL/min/1.73m2 Kidney Failure ?< 15 ??mL/min/1.73m2 *Relative to young adult level Estimated glomerular filtration rate is determined by the 2020 CKD-EPI equation recommended by the National Kidney Foundation (A Unifying Approach to GFR Estimation: Recommendations of the NKF-ASK Task Force on Reassessing the Inclusion of Race in Diagnosing Kidney Disease, JASN 2020). The CKD-EPI equation should not be used for patients with unstable renal function and has not been validated in children and those over 70. Current interpretive data was last reviewed 2021. Blood 07/03/2023 9:26 AM CDT 07/03/2023 9:41 AM CDT us Amarjit Restrepo MD LAB BLOOD ORDERABLES Final Result [facility] [address] Department [place] [address] * Differential, auto (07/03/2023 9:26 AM CDT) Pathologist [facility] Neutrophil abs 3.9 1.5 - 6.5 K/cumm Imm gran abs 0.0 0.0 - 0.1 K/cumm [facility] Lymphocyte abs 1.6 0.8 - 3.3 K/cumm [facility] Monocyte abs 0.4 0.2 - 0.8 K/cumm [facility] Eosinophil abs 0.1 0.0 - 0.5 K/cumm [facility] Basophil abs 0.1 0.0 - 0.1 K/cumm [facility] Neutrophil pct 64.2 % [facility] Comment: Interpretive Data Percent cell count reference ranges are not reported, since discordance with absolute values may lead to misinterpretation of CBC data. Current Interpretive Data was last revised on 2017. Imm gran pct 0.7 % [facility] Comment: Interpretive Data Percent cell count reference ranges are not reported, since discordance with absolute values may lead to misinterpretation of CBC data. Current Interpretive Data was last revised on 2017. Lymphocyte pct 27.0 % [facility] Comment: Interpretive Data Percent cell count reference ranges are not reported, since discordance with absolute values may lead to misinterpretation of CBC data. Current Interpretive Data was last revised on 2017. Monocyte pct 5.8 % [facility] Comment: Interpretive Data Percent cell count reference ranges are not reported, since discordance with absolute values may lead to misinterpretation of CBC data. Current Interpretive Data was last revised on 2017. Eosinophil pct 1.3 % [facility] Comment: Interpretive Data Percent cell count reference ranges are not reported, since discordance with absolute values may lead to misinterpretation of CBC data. Current Interpretive Data was last revised on 2017. Basophil pct 1.0 % [facility] Comment: Interpretive Data Percent cell count reference ranges are not reported, since discordance with absolute values may lead to misinterpretation of CBC data. Current Interpretive Data was last revised on 2017. Blood 07/03/2023 9:26 AM CDT 07/03/2023 9:41 AM CDT Amarjit Restrepo MD LAB BLOOD ORDERABLES Final Result Performing Organization Address City/[facility]/ZIP Co de Phone Number [facility] Department [place] [address] * Lipase (07/03/2023 9:26 AM CDT) Lipase 78 10 - 99 Units/L Blood (Blood, Venous) 07/03/2023 9:26 AM CDT 07/03/2023 9:41 AM CDT Amarjit Restrepo MD LAB BLOOD ORDERABLES Final Result Performing Organization Address City/[facility]/ZIP Co de Phone Number [facility] Department [place] [address] * (ABNORMAL) Comprehensive metabolic panel (07/03/2023 9:26 AM CDT) Sodium 141 135 - 145 mmol/L Potassium, pl 3.8 3.3 - 4.9 mmol/L [facility] Chloride 106 97 - 110 mmol/L [facility] CO2 27 22 - 32 mmol/L [facility] Anion gap 8 2 - 15 mmol/L [facility] BUN 10 6 - 25 mg/dL [facility] Creatinine 0.94 0.60 - 1.10 mg/dL [facility] Glucose 117 70 - 199 mg/dL [facility] Comment: Interpretive Data Fasting glucose >/= 126 mg/dl is diagnostic for diabetes. ?? Fasting is defined as no caloric intake for at least 8 hours. Fasting glucose between 100 mg/dl to 125 mg/dl is diagnostic of prediabetes. In a patient with classic symptoms of hyperglycemia or hyperglycemic crisis, a random glucose >/= 200 mg/dl is diagnostic for diabetes. In the absence of unequivocal hyperglycemia, results should be confirmed by repeat testing. The classification and Diagnosis of Diabetes Diabetes Care 2021; 46: S19-S40. Current interpretive data was last revised 2022. Calcium 8.8 8.5 - 10.3 mg/dL [facility] Bilirubin, total 0.2 0.1 - 1.2 mg/dL [facility] Protein, pl 7.8 6.5 - 8.5 g/dL [facility] Albumin 4.1 3.5 - 5.0 g/dL [facility] Alk phos 81 40 - 130 Units/L [facility] ALT 51(H) 7 - 45 Units/L [facility] AST 48(H) 10 - 45 Units/L [facility] Blood 07/03/2023 9:26 AM CDT 07/03/2023 9:41 AM CDT us Amarjit Restrepo MD LAB BLOOD ORDERABLES Final Result [facility] [address] Department [place] [address] * (ABNORMAL) CBC with auto differential (07/03/2023 9:26 AM CDT) WBC 6.1 3.8 - 9.9 K/cumm Hgb 12.1 11.9 - 15.5 g/dL [facility] Hct 38.6 35.6 - 45.5 % [facility] Plt 300 150 - 400 K/cumm [facility] MPV 8.9(L) 9.1 - 12.3 fL [facility] RBC 4.70 3.90 - 5.20 M/cumm [facility] MCV 82.1 81.3 - 96.4 fL [facility] MCH 25.7(L) 27.1 - 33.3 pg [facility] MCHC 31.3(L) 32.3 - 35.7 g/dL [facility] RDW CV 15.6(H) 11.1 - 14.9 % [facility] RDW SD 46.5 35.7 - 48.1 fL [facility] NRBC abs 0.00 0.00 - 0.01 K/cumm [facility] Blood (Blood, Venous) 07/03/2023 9:26 AM CDT 07/03/2023 9:41 AM CDT us Amarjit Restrepo MD LAB BLOOD ORDERABLES Final Result [facility] [address] Department [place] [address] documented in this encounter Visit Diagnoses Diagnosis Abdominal pain- Primary Abdominal pain, unspecified site documented in this encounter Administered Medications Inactive Administered Medications - up to 3 most recent administrations Medication Order MAR Action Action Date Dose Rate Site ioversoL (OPTIRAY 350) syringe 100 mL 100 mL, intravenous, Once in imaging, contrast, Starting on Sat07/03/23 at 1235, For 1 dose Contrast Given 07/03/2023 12:40 PM CDT 90 mL morphine injection 4 mg 4 mg, intravenous, Administer over 4 Minutes, Once, On Sat07/03/23 at 1043, For 1 dose, Indications: PainIndications:Pain Given 07/03/2023 10:56 AM CDT 4 mg morphine injection 4 mg 4 mg, intravenous, Administer over 4 Minutes, Once, On Sat07/03/23 at 1311, For 1 dose, Indications: PainIndications:Pain Given 07/03/2023 1:14 PM CDT 4 mg ondansetron (ZOFRAN) injection 4 mg 4 mg, intravenous, Administer over 2 Minutes, Once, On Sat07/03/23 at 1043, For 1 dose Given 07/03/2023 10:57 AM CDT 4 mg sodium chloride 0.9% bolus 1,000 mL 1,000 mL, intravenous, Once, On Sat07/03/23 at 1043, For 1 dose New Bag 07/03/2023 10:56 AM CDT 1,000 mL documented in this encounter Active and Recently Administered Medications Times are shown in CDT. Scheduled Medication Order 07/01/2023 07/02/2023 07/03/2023 morphine injection 4 mg (COMPLETED) 4 mg, intravenous, Administer over 4 Minutes, Once, On Sat07/03/23 at 1043, For 1 dose, Indications: Pain 1056 (Given - Provid er: Rosalba Arteaga RN) morphine injection 4 mg (COMPLETED) 4 mg, intravenous, Administer over 4 Minutes, Once, On Sat07/03/23 at 1311, For 1 dose, Indications: Pain 1314 (Given - Provid er: Rosalba Arteaga RN) ondansetron (ZOFRAN) injection 4 mg (COMPLETED) 4 mg, intravenous, Administer over 2 Minutes, Once, On Sat07/03/23 at 1043, For 1 dose 1057 (Given - Provid er: Rosalba Arteaga RN) sodium chloride 0.9% bolus 1,000 mL (COMPLETED) 1,000 mL, intravenous, Once, On Sat07/03/23 at 1043, For 1 dose 1056 (New Bag - Prov ider: Rosalba Arteaga RN)1253 (Stopped - Provider: Rosalba Arteaga RN) PRN Medication Order 07/01/2023 07/02/2023 07/03/2023 ioversoL (OPTIRAY 350) syringe 100 mL (COMPLETED) 100 mL, intravenous, Once in imaging, contrast, Starting on Sat07/03/23 at 1235, For 1 dose 1240 (Contrast Given - Provider: Mirza Cannon, RT) documented in this encounter Orders IV Count Last Ordered Date First Orde red Date SALINE LOCK IV 1 07/03/2023 documented in this encounter Care Teams Secondary School Teacher Librarian Relationship Specialty Start Date End Date Bhupinder Tobias MD [address] [facility] [address] [place] [address] PCP - General Internal Medicine 06/03/20 Cash Heath III, MD [address] [facility] [address] [place] [address] Rheumatology 04/12/17 Jorge Aguiar MD [address] [facility] [address] [place] [address] Consulting Physician Urology 11/10/20 Khoa Arias MD [address] [facility] [address] [place] [address] Referring Physician Gastroenterology 03/20/21 documented as of this encounter
--- OUTSIDE RECORDS SUMMARY | 2024-04-29 19:22 | XMS_ITS | Encounter Summary ---
Author Organization [facility] Healthcare Address [address] [place] [address] Care Team Providers Care Case Management Specialist Name Role Phone Kumar CARRILLO MD, Cash Howard Unavailable [phone] Bhupinder Tobias MD Primary Care Provider [phone] Jorge Aguiar MD Unavailable [phone] Khoa Arias MD Unavailable [phone] Reason for Visit * Reason Comments Shortness of Breath Encounter Details Date Type Department Care Team (Late st Contact Info) Description 01/13/2023 1:58 PM CDT - 01/13/2023 8:[address] 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 Gender Identity Female 08/14/2022 11:32 AM CDT Sexual Orientation Straight 02/13/2023 7: 01 AM CDT documented as of this encounter Last Filed Vital Signs Vital Sign Reading Time Taken Comments Blood Pressure 136/82 01/13/2023 6:00 PM CDT Pulse 81 01/13/2023 6:30 PM CDT Temperature 36.6 ??C (97.8 ??F) 01/13/2023 11:47 AM C DT Respiratory Rate 20 01/13/2023 6:30 PM CDT Oxygen Saturation 96% 01/13/2023 6:30 PM CDT Inhaled Oxygen Concentration - - Weight 90.7 kg (200 lb) 01/13/2023 11:47 AM CDT Height 167.6 cm (5' 6 ) 01/13/2023 11:47 AM CDT Body Mass Index 32.28 01/13/2023 11:47 AM CDT documented in this encounter Discharge Instructions * Discharge Instructions* Loyda Jaquez MD - 01/13/2023 7:12 PM CDT You were evaluated in the Emergency Department today for shortness of breath. Your evaluation showed aspiration and you likely have an early aspiration pneumonia. Please follow up with your primary care physician if not improving in 48-72 hours. Please take the antibiotics (Augmentin and Azithromycin) to completion. You may take zofran as needed for nausea and tylenol/ibuprofen for pain. Return to the Emergency Department if you experience worsening shortness of breath, chest pain, headache, light headedness, or any other concerning symptoms. * Attachments The following attachments cannot be sent through Care Everywhere. * Adult, Pneumonia (Bhutanese) documented in this encounter Medications at Time [...] mouth daily 08/03/2021 SUMAtriptan (IMITREX) 50 mg tabletIndications:Jaimie ortega TK 1 T PO AOS OF MIGRAINE. [...] Take 1 tablet by mouth daily 11/01/2021 amoxicillin-clavulan ate (AUGMENTIN) 875-125 mg per tabletIndications:Pn eumonia, Community Acquired Take 1 tablet by mouth every 12 (twelve) hours for 7 days 14 tablet 01/13/2023 3 alendronate (FOSAMAX) 70 mg tablet 1 09/02/2018 [...] Take 250 mg by mouth 02/02/2017 3 documented as of this encounter Ordered Prescriptions Prescription Sig Dispense Quantity Refills Last Filled Start Date End Date fluconazole (DIFLUCAN) 150 mg tablet Take 1 tablet orally as directed. 1 tablet 01/13/2023 dicyclomine (BENTYL) 20 mg tablet Take 1 tablet (20 mg total) by mouth 2 (two) times a day 20 tablet 01/13/2023 ondansetron ODT (ZOFRAN-ODT) 4 mg disintegrating tablet Take 1 tablet (4 mg total) by mouth every 8 (eight) hours as needed for nausea or vomiting 20 tablet 01/13/2023 azithromycin (ZITHROMAX) 250 mg tablet Take 1 tablet (250 mg total) by mouth daily Take first 2 tablets together, then 1 every day until finished. 6 tablet 01/13/2023 amoxicillin-clavulan ate (AUGMENTIN) 875-125 mg per tabletIndications:Pn eumonia, Community Acquired Take 1 tablet by mouth every 12 (twelve) hours for 7 days 14 tablet 01/13/2023 3 documented in this encounter Discharge Disposition Disposition Code Departure Means Destination Comment s Discharge to home or self care documented in this encounter ED Notes * Loyda Jaquez MD - 01/13/2023 2:49 PM CDT HPI Chief Complaint Patient presents with Shortness of Breath HPI 47-year-old female with a history of diverticulitis, Mariano, presents for evaluation of shortness of breath that awoke the patient from sleep at 0100 yesterday. She states she had heart racingpalpitations so she used a home pulse oximeter that showed an SpO2 81% and pulse of 150-160. She reports constant, waxing and waning chest pain over the lateral chest tinsley radiating centrally; no radiation to the back. Reports cough w/ sputum, intermittently streaked with blood. Reports a fever atthe onset of symptoms (TMAX 101.5F) that has been down- trending. She also reports nausea/vomiting, nonbloody nonbilious emesis; two episodes at day of onset. Reports diarrhea, worse x 2 weeks with hematochezia and melena, similar to history of diverticulitis episodes. No urinary or vaginal symptoms. Patient History: Patient Active Problem List Diagnosis Date Noted Diverticulitis large intestine w/o perforation or abscess [...] Medical History: Diagnosis Date Autoimmune disease (CMS/HCC) ([facility]) Rheumatoid Arthritis Diverticulitis Meredith-Danlos syndrome Hemorrhoid IBS (irritable bowel syndrome) Kidney stone Menstrual problem irregular and heavy Migraine Peptic ulceration RA (rheumatoid arthritis) ([facility]) Past Surgical History: Procedure Laterality Date SECTION [...] Social History Tobacco Use Smoking status: Former Packs/day: 0.50 Years: 10.00 Additional pack years: 0.00 Total pack years: 5.00 Types: Cigarettes Quit date: 04/22/2012 Years since quittin.7 Smokeless tobacco: Never Vaping Use Vaping Use: Former Substances: Flavoring Substance and Sexual Activity Alcohol use: Yes Comment: socially Drug use: Yes Types: Marijuana Sexual activity: Yes Partners: Male Social History Social History Narrative Not on file Review of Systems Negative unless documented in the HPI or MDM Physical Exam ED Triage Vitals [01/13/23 1147] Temp Pulse Resp BP SpO2 36.6 ??C (97.8 ??F) 98 16 146/77 96 % Temp src Heart Rate Source Patient Position BP Location FiO2 (%) Oral -- -- -- -- Height Height Method Weight Weight Method 1.676 m (5' 6 ) Stated 90.7 kg (200 lb) Stated - Constitutional: Awake, alert, speaking in full sentences. - Head: Normocephalic. Atraumatic. - Eyes: PERRLA. EOMI. No scleral icterus. - ENT: External ears normal-appearing. Moist mucous membranes. - Neck: Trachea midline. No adenopathy. No JVD. - Respiratory: Respirations even, nonlabored. Lung sounds clear to auscultation bilaterally. - Cardiovascular: Tachycardic rate and regular rhythm. No murmurs. - Abdominal: Non-distended. +LLQ tenderness. No rebound or guarding. - Extremities: No edema or deformity. - Neuro: A&Ox3. Moving all four extremities. [facility] Medical Decision Making 47-year-old female with a history of diverticulitis, Meredith-Danlos, here with shortness of breath, palpitations, chest josselin, cough, hemoptysis, nausea, vomiting, diarrhea (hematochezia/melena), and fever. Exam: Tachycardic, regular. SpO2 98% on room air. BP stable. Afebrile here. Lungs clear, respirations even, nonlabored. No murmurs. Abd soft. LLQ tenderness. No rebound or guarding. Differential diagnosis: Viral syndrome, gastroenteritis, diverticulitis (consider related complications e.g., perforation, abscess; though does not appear systemically ill), pneumonia, peptic ulcer disease, gastritis, electrolyte derangement, anemia, obstruction, occult intraabdominal infection, pulmonary embolism. Will obtain CBC, CMP, lipase, trop series, BNP, viral swab, UA, hCG, CT C/A/P. Symptomatic treatment. Dispo pending clinical course. Amount and/or Complexity of Data Reviewed Labs: ordered. Decision-making details documented in ED Course. Radiology: ordered. Decision-making details documented in ED Course. ECG/medicine tests: ordered. Risk OTC drugs. Prescription drug management. Attending Summary of Care ED Course as of 01/13/231917 Time: 01/13 1646 Value: Lipase, Serum: 59 Comment: (Reviewed) By: Loyda Jaquez MD Time: 01/13 1646 Value: NT-proBNP: 68 Comment: (Reviewed) By: Loyda Jaquez MD Time: 01/13 1646 Value: Trop I hs: <4 Comment: (Reviewed) By: Loyda Jaquez MD Time: 01/13 1646 Value: CT Chest PE (CTA) Abdomen Pelvis W Contrast Comment: IMPRESSION: 1. No pulmonary embolism. 2. Patchy groundglass opacities in the dependent aspects of the bilateral lower lobes and right upper lobe, favored to be related to aspiration though infectious etiology cannot be excluded. 3. No acute abnormality within the abdomen or pelvis. By: Loyda Jaquez MD Time: 01/13 1917 Comment: Updated pt on results. Given fever and resp symptoms, will treat for pneumonia. Discussed return precautions. Discussed plan to f/u with pmd. By: Loyda Jaquez MD Aspiration pneumonia due to gastric secretions, unspecified laterality, unspecified part of lung (HCC) Loyda Jaquez MD Resident 01/13/231917 Cosigned by Kelvin Marquez MD at 01/15/2023 9:03 AM CDT Associated attestation - Kelvin Marquez MD - 01/15/2023 9:03 AM CDT I have seen and examined the patient on 01/13/2023. I agree with the findings and plan of care as documented in the resident's note. * Joanna Atkinson RN - 01/13/2023 1:58 PM CDT Bed: [id number] Expected date: Expected time: Means of arrival: Car Comments: Joanna Atkinson RN 01/13/23 1358 * Trina Millard RN - 01/13/2023 11:51 AM CDT Symptoms: Patient here with cough that started yesterday at 1AM. Endorses shortness of breath (has a pulse ox at home and it read 81% when symptoms started, but went to 96% this morning). When takingvitals, SpO2 read 83%, but then increased to 96% after a couple minutes of deep breathing and calming. Endorses 7/10 mid-sternal chest pain, faint, dizziness, fatigue, pain on inspiration, N/V/D, intermittent fever (100.5 last night) and chills. Is visibly sweaty in triage and taking deep breaths. Took an OTC covid test yesterday, which resulted negative. Also took sudafed this morning with no relief in symptoms. PmHx: Meredith-Camilla, tachycardia documented in this encounter Miscellaneous Notes * ED Re-evaluation Note - Rhea Youssef MD - 01/13/2023 6:43 PM CDT ED Re-evaluation TRANSITION OF CARE: I, Rhea Youssef MD, am taking signout. I have reviewed all pertinent vital signs, allergies, and history available in the chart. Summary: 47 y.o. female with PMHx of diverticulitis, Mariano, presents for evaluation of shortness of breath. CT PE negative. Pending: Labs Dispo: Discharge ED Course as of 01/13/231917 Time: 01/13 1646 Value: Lipase, Serum: 59 Comment: (Reviewed) By: Loyda Jaquez MD Time: 01/13 1646 Value: NT-proBNP: 68 Comment: (Reviewed) By: Loyda Jaquez MD Time: 01/13 1646 Value: Trop I hs: <4 Comment: (Reviewed) By: Loyda Jaquez MD Time: 01/13 1646 Value: CT Chest PE (CTA) Abdomen Pelvis W Contrast Comment: IMPRESSION: 1. No pulmonary embolism. 2. Patchy groundglass opacities in the dependent aspects of the bilateral lower lobes and right upper lobe, favored to be related to aspiration though infectious etiology cannot be excluded. 3. No acute abnormality within the abdomen or pelvis. By: Loyda Jaquez MD Time: 01/13 1917 Comment: Updated pt on results. Given fever and resp symptoms, will treat for pneumonia. Discussed return precautions. Discussed plan to f/u with pmd. By: Loyda Jaquez MD Johnson, Lashaunda Brooke, MD Resident 01/14/23 0726 * ED Re-evaluation Note - Debbie Jordan MD - 01/13/2023 3:12 PM CDT ED Re-evaluation 47yoF h/o EDS, psoriatic arthritis, IBS, p/w sob, low grade fevers, concern for pe, getting CTPE. ED Course as of 01/13/23 2256 Time: 01/13 1646 Value: Lipase, Serum: 59 Comment: (Reviewed) By: Loyda Jaquez MD Time: 01/13 1646 Value: NT-proBNP: 68 Comment: (Reviewed) By: Loyda Jaquez MD Time: 01/13 1646 Value: Trop I hs: <4 Comment: (Reviewed) By: Loyda Jaquez MD Time: 01/13 1646 Value: CT Chest PE (CTA) Abdomen Pelvis W Contrast Comment: IMPRESSION: 1. No pulmonary embolism. 2. Patchy groundglass opacities in the dependent aspects of the bilateral lower lobes and right upper lobe, favored to be related to aspiration though infectious etiology cannot be excluded. 3. No acute abnormality within the abdomen or pelvis. By: Loyda Jaquez MD Time: 01/13 1917 Comment: Updated pt on results. Given fever and resp symptoms, will treat for pneumonia. Discussed return precautions. Discussed plan to f/u with pmd. By: Loyda Jaquez MD Wallace, Laura Ann, MD 01/13/232256 * ED Procedure Note - Kelvin Marquez MD - 01/13/2023 11:58 AM CDTAssociated Order(s): ECG 12 lead Procedure ECG 12 lead Date/Time: 01/13/2023 11:58 AM Performed by: Kelvin Marquez MD Authorized by: Kevlin Marquez MD Rate: ECG rate: Rate 92, narrow complex, regular, sinus, nonspecific ST changes including T-wave morphology that is not completely normal however it is somewhat similar to prior ECG from July 23, 2021, no STEMI Kelvin Marquez MD 01/13/23 1158 documented in this encounter Plan of Treatment Pending Results Name Type Priority Associated Diagnoses Date /Time Lipase Lab STAT 01/13/2023 3:1 4 PM CDT Scheduled Orders Name Type Priority Associated Diagnoses Orde r Schedule Lipase Lab STAT Once for 1 Occ urrences starting 01/13/2023 until 01/13/2023 documented as of this encounter Procedures Procedure Name Priority Date/Time Associated Diagnosis Comments POCT HCG, URINE Routine 01/13/2023 5:44 PM CDT URINALYSIS AND REFLEX TO MICROSCOPIC AND CULTURE STAT 01/13/2023 5:37 PM CDT RESPIRATORY PATHOGEN PANEL Routine 01/13/2023 5:37 PM CDT URINALYSIS, MICROSCOPIC ONLY STAT 01/13/2023 5:[address] CHEST PE ABDOMEN PELVIS W CONTRAST ED 01/13/2023 4:04 PM CDT POCT CREATININE - DEVICE Routine 01/13/2023 3:37 PM CDT TROPONIN I HIGH-SENSITIVITY SERIES (BASELINE, 2HR, 4HR, 6HR) STAT 01/13/2023 3:14 PM CDT EGFR STAT 01/13/2023 3:14 PM CDT DIFFERENTIAL AUTO STAT 01/13/2023 3:1 4 PM CDT PRO B-TYPE NATRIURETIC PEPTIDE STAT 01/13/2023 3:14 PM CDT THYROID FUNCTION CASCADE STAT 01/13/2023 3:14 PM CDT CBC WITH AUTO DIFFERENTIAL STAT 01/13/2023 3:14 PM CDT LIPASE STAT 01/13/2023 3:14 PM CDT COMPREHENSIVE METABOLIC PANEL STAT 01/13/2023 3:14 PM CDT ECG 12-LEAD STAT 01/13/2023 11:58 AM CDT documented in this encounter Results * POCT hCG, urine (01/13/2023 5:44 PM CDT) HCG, ur, POC Negative Negative Lot Number [id number] QC Backgroud Clear Acceptable QC Control Line Acceptable Urine 01/13/2023 5:44 PM CDT Loyda Jaquez MD POINT OF CARE TE ST ORDERABLES Final Result * (ABNORMAL) Urinalysis, microscopic only (01/13/2023 5:37 PM CDT) WBC, ur 0-5 0 - 5 /HPF [facility] RBC, ur 21-50(A) 0 - 2 /HPF [facility] Epithelial cells, squamous, ur 1-5 0 - 5 /HPF [facility] Mucous, ur Present(A) [facility] Culture Reflex Comment Reflex conditions for urine culture (WBC >10) not met. [facility] Urine, bladder 01/13/2023 5: 37 PM CDT 01/13/2023 5:49 PM CDT Loyda Jaquez MD LAB URINE ORDERA BLES Final Result [facility] Department [place] [address] * (ABNORMAL) Urinalysis reflex to microscopic and culture Urine, bladder (01/13/2023 5:37 PM CDT) Pathologist [facility] Color, ur Yellow Yellow [facility] Clarity, ur Clear Clear [facility] Specific gravity, ur 1.042(H) 1.003 - 1.030 [facility] pH, urine 7.0 [facility] Protein, ur ql 1+(A) Negative [facility] Glucose, ur ql Negative Negative [facility] Ketones, ur Negative Negative [facility] Bilirubin, ur Negative Negative [facility] Blood, ur 1+(A) Negative [facility] Urobilinogen, ur 2.0(A) <2.0 mg/dL [facility] Nitrite, ur Negative Negative [facility] Leukocyte esterase, ur Negative Negative [facility] UA reflex comment Reflex to microscopic UA will be performed. [facility] Urine, bladder 01/13/2023 5: 37 PM CDT 01/13/2023 5:49 PM CDT Narrative [facility] - 01/13/2023 5:56 PM CDT ?? Urine pH is affected by diet, medications, systemic acid-base disturbances, and renal tubular function. ??pH may affect urinary stone formation. ??For example, urine pH below 6.0 may help reduce the tendency for calcium phosphate stones and pH greater than 6.0 may reduce the tendency for uric acid stone formation. Source: [employer]. Last revised 05-02-2017 Loyda Jaquez MD LAB MICROBIOLOGY - GENERAL ORDERABLES Final Result [facility] Department [place] [address] * Respiratory pathogen panel Nasopharyngeal (01/13/2023 5:37 PM CDT) [facility] Influenza A RNA Not Detected Not Detected [facility] Influenza B RNA Not Detected Not Detected [facility] RSV RNA Not Detected Not Detected [facility] COVID-19 RNA Not Detected Not Detected [facility] Coronavirus 229E RNA Not Detected Not Detected [facility] Coronavirus HKU1 RNA Not Detected Not Detected [facility] Coronavirus NL63 RNA Not Detected Not Detected [facility] Coronavirus OC43 RNA Not Detected Not Detected [facility] Adenovirus DNA Not Detected Not Detected [facility] Metapneumovirus RNA Not Detected Not Detected [facility] Rhinovirus/Enterov irus RNA Not Detected Not Detected [facility] Parainfluenza 1 RNA Not Detected Not Detected [facility] Parainfluenza 2 RNA Not Detected Not Detected [facility] Parainfluenza 3 RNA Not Detected Not Detected [facility] Parainfluenza 4 RNA Not Detected Not Detected [facility] B. pertussis DNA Not Detected Not Detected [facility] B. parapertussis DNA Not Detected Not Detected [facility] C. pneumoniae DNA Not Detected Not Detected [facility] M. pneumoniae DNA Not Detected Not Detected [facility] Nasopharyngeal 01/13/2023 5: 37 PM CDT 01/13/2023 5:50 PM CDT Narrative [facility] - 01/13/2023 6:44 PM CDT Is the Patient experiencing symptoms consistent with COVID?->Yes Date of Symptom Onset->01/13/23 Reason for testing?->Symptomatic Surveillance testing for transplant patient?->No ??Interpretive Data The [employer] FilmArray Respiratory Panel (RP2.1) assay is a multiplexed real-time PCR based nucleic acid test capable of simultaneous qualitative detection and identification of multiple respiratory viral and bacterial nucleic acids, including SARS Coronavirus 2 (the causative agent of COVID-19). The following bacteria, viruses and virus subtypes can be identified using the FilmArray RP2.1 assay: Bordetella pertussis, Bordetella parapertussis, Chlamydia pneumoniae, Mycoplasma pneumoniae, Adenovirus, SARS Coronavirus 2, seasonal coronaviruses (Coronavirus HKU1, Coronavirus NL63, Coronavirus 229E, and Coronavirus OC43), Influenza A, Influenza A subtype H1, Influenza A subtype H3, Influenza A subtype 2009 H1, Influenza B, Metapneumovirus, Parainfluenza 1, Parainfluenza 2, Parainfluenza 3, Parainfluenza 4, RSV, Rhinovirus/Enterovirus. Due to the genetic similarity between human Rhinovirus and Enterovirus, the FilmArray RP2.1 assay cannot reliably differentiate them. Coronavirus OC43 may cross-react with some isolates of Coronavirus HKU1. ??A dual positive result may be due to cross-reactivity or may indicate a co-infection. The detection and identification of specific viral and bacterial nucleic acids from individuals exhibiting signs and symptoms of a respiratory infection aids in the diagnosis of respiratory infection if used in conjunction with other clinical and epidemiological information. ??The results of this test should not be used as the sole basis for diagnosis, treatment, or other management decisions. ??Negative results in the setting of a respiratory illness may be due to infection with pathogens that are not detected by this test. ??Positive results do not rule out infection/co-infection with other organisms. ??The agent(s) detected by the FilmArray RP2.1 may not be the definite cause of disease. ??Additional testing (lab, imaging, etc.) may be necessary when evaluating a patient with possible respiratory tract infection. The FilmArray RP2.1 assay has FDA clearance for testing of YARD MOTOR OPERATOR swabs. ??The performance of additional specimen types has been assessed by the performing laboratory. ??The performance characteristics of this assay have been determined by [facility] Infectious Disease [facility]. Current interpretive data was last revised on 22. Loyda Jaquez MD LAB MICROBIOLOGY - GENERAL ORDERABLES Final Result [facility] Department [place] [address] * CT Chest PE (CTA) Abdomen Pelvis W Contrast (01/13/2023 4:04 PM CDT) Anatomical Region Laterality Modality Body N/A Computed Tomogra phy 01/13/2023 4:27 PM CDT Impressions 01/13/2023 4:37 PM CDT 1. ??No pulmonary embolism. 2. ??Patchy groundglass opacities in the dependent aspects of the bilateral lower lobes and right upper lobe, favored to be related to aspiration though infectious etiology cannot be excluded. 3. ??No acute abnormality within the abdomen or pelvis. Dictated by: Praomd Baltazar M.D. The radiology attending physician has personally reviewed this study, and had reviewed and/or edited this written report and agrees with it. Electronically signed by: Jack Worrell 01/13/2023 4:37 PM CDT EXAMINATION: CT CHEST PE (CTA) ABDOMEN PELVIS W CONTRAST HISTORY: Shortness of breath, left lower quadrant pain TECHNIQUE: Computed tomographic images were acquired using a chest angiographic protocol optimized for pulmonary embolism. ??Computed tomographic examination of the abdomen and pelvis with intravenous contrast was performed using a standard protocol. ??Contrast enhanced transaxial images were obtained following the intravenous administration of 75 ml of nonionic contrast. ??Multiplanar reformatted images and three-dimensional images were obtained on the 3-D workstation and sent to the [employer] archival system. ?? COMPARISON: CT abdomen pelvis 06/12/[address] chest 07/23/2021 FINDINGS: No pulmonary embolism or thoracic aortic dissection. There is patchy ground glass opacification within the dependent portions of the bilateral lower lobes and right upper lobe. ??No pleural effusion or pneumothorax. Heart size is normal. ??No pericardial effusion. ??No thoracic lymphadenopathy. ??The thoracic aorta is normal in course and caliber. No focal hepatic lesion. ??No biliary ductal dilatation. ??Gallbladder is normal. ??Small hiatal hernia. ??The pancreas and adrenal glands are normal. ??Old granulomatous disease within the spleen. ??Unchanged bilateral renal cysts. ??There are nonobstructing renal stones bilaterally. ??No hydronephrosis. ??Urinary bladder appears normal. The bowel is normal in caliber. ??There is colonic diverticulosis without evidence of acute diverticulitis. ??The appendix is visualized and is normal. ??No free intraperitoneal gas or fluid. No lymphadenopathy in the abdomen or pelvis. ??Mild calcified atherosclerosis of the abdominal aorta without aneurysm. The uterus appears normal. ??Bilateral ovarian follicles noted. No acute fracture or suspicious osseous lesion. Procedure Note Jack Alvarado MD - 01/13/2023 EXAMINATION: CT CHEST PE (CTA) ABDOMEN PELVIS W CONTRAST HISTORY: Shortness of breath, left lower quadrant pain TECHNIQUE: Computed tomographic images were acquired using a chest angiographic protocol optimized for pulmonary embolism. Computed tomographic examination of the abdomen and pelvis with intravenous contrast was performed using a standard protocol. Contrast enhanced transaxial images were obtained following the intravenous administration of 75 ml of nonionic contrast. Multiplanar reformatted images and three-dimensional images were obtained on the 3-D workstation and sent to the PACS archival system. COMPARISON: CT abdomen pelvis 06/12/[address] chest 07/23/2021 FINDINGS: No pulmonary embolism or thoracic aortic dissection. There is patchy ground glass opacification within the dependent portions of the bilateral lower lobes and right upper lobe. No pleural effusion or pneumothorax. Heart size is normal. No pericardial effusion. No thoracic lymphadenopathy. The thoracic aorta is normal in course and caliber. No focal hepatic lesion. No biliary ductal dilatation. Gallbladder is normal. Small hiatal hernia. The pancreas and adrenal glands are normal. Old granulomatous disease within the spleen. Unchanged bilateral renal cysts. There are nonobstructing renal stones bilaterally. No hydronephrosis. Urinary bladder appears normal. The bowel is normal in caliber. There is colonic diverticulosis without evidence of acute diverticulitis. The appendix is visualized and is normal. No free intraperitoneal gas or fluid. No lymphadenopathy in the abdomen or pelvis. Mild calcified atherosclerosis of the abdominal aorta without aneurysm. The uterus appears normal. Bilateral ovarian follicles noted. No acute fracture or suspicious osseous lesion. IMPRESSION: 1. No pulmonary embolism. 2. Patchy groundglass opacities in the dependent aspects of the bilateral lower lobes and right upper lobe, favored to be related to aspiration though infectious etiology cannot be excluded. 3. No acute abnormality within the abdomen or pelvis. Dictated by: Pramod Baltazar M.D. The radiology attending physician has personally reviewed this study, and had reviewed and/or edited this written report and agrees with it. Electronically signed by: Jack Alvarado Loyda Jaquez MD [facility] CT PROCEDURE S Final Result * POCT creatinine (01/13/2023 3:37 PM CDT) Creatinine POC 0.9 0.6 - 1.1 mg/dL [facility] Blood 01/13/2023 3:37 PM CDT 01/13/2023 3:37 PM CDT Debbie Jordan MD LAB POCT ORDERABLES - DEVIC E Final Result Performing Organization Address [facility] Co de Phone Number [facility] Department [place] [address] * Lipase (01/13/2023 3:14 PM CDT) Pathologist [facility] Lipase 59 10 - 99 Units/L [facility] Blood 01/13/2023 3:14 PM CDT 01/13/2023 3:28 PM CDT Debbie Jordan MD LAB BLOOD ORDERABLES Final Result Performing Organization Address [facility] de Phone Number [facility] Department [place] [address] * (ABNORMAL) eGFR (01/13/2023 3:14 PM CDT) Pathologist [facility] eGFR 69(L) 90 - 130 mL/min/1. 73 m2 [facility] Comment: Interpretive Data Reference Interval Normal ?>/= [...] interpretive data was last reviewed 2021. Blood 01/13/2023 3:14 PM CDT 01/13/2023 3:28 PM CDT Loyda Jaquez MD LAB BLOOD ORDERA BLES Final Result [facility] Department [place] [address] * (ABNORMAL) Differential, auto (01/13/2023 3:14 PM CDT) Neutrophil abs 8.1(H) 1.7 - 6.5 K/cumm [facility] Imm gran abs 0.1 0.0 - 0.1 K/cumm [facility] Lymphocyte abs 1.4 0.8 - 3.3 K/[facility]umm [facility] Monocyte abs 0.3 0.2 - 0.8 K/cumm [facility] Eosinophil abs 0.2 0.0 - 0.5 K/cumm [facility] Basophil abs 0.1 0.0 - 0.1 K/cumm [facility] Neutrophil pct 79.5 % [facility] Comment: Interpretive Data Percent cell count reference ranges are not reported, since discordance with absolute values may lead to misinterpretation of CBC data. Current Interpretive Data was last revised on 2017. Imm gran pct 0.6 % [facility] Comment: Interpretive Data Percent cell count reference ranges are not reported, since discordance with absolute values may lead to misinterpretation of CBC data. Current Interpretive Data was last revised on 2017. Lymphocyte pct 14.1 % [facility] Comment: Interpretive Data Percent cell count reference ranges are not reported, since discordance with absolute values may lead to misinterpretation of CBC data. Current Interpretive Data was last revised on 2017. Monocyte pct 3.3 % [facility] Comment: Interpretive Data Percent cell count reference ranges are not reported, since discordance with absolute values may lead to misinterpretation of CBC data. Current Interpretive Data was last revised on 2017. Eosinophil pct 2.0 % [facility] Comment: Interpretive Data Percent cell count reference ranges are not reported, since discordance with absolute values may lead to misinterpretation of CBC data. Current Interpretive Data was last revised on 2017. Basophil pct 0.5 % [facility] Comment: Interpretive Data Percent cell count reference ranges are not reported, since discordance with absolute values may lead to misinterpretation of CBC data. Current Interpretive Data was last revised on 2017. Blood 01/13/2023 3:14 PM CDT 01/13/2023 3:20 PM CDT Loyda Jaquez MD LAB BLOOD ORDERA BLES Final Result Performing Organization Address [facility] Co de Phone Number [facility] Department [place] [address] * TSH reflex to free T4 (01/13/2023 3:14 PM CDT) TSH 1.14 0.30 - 4.20 mcIUnit/mL [facility] Blood 01/13/2023 3:14 PM CDT 01/13/2023 3:20 PM CDT Loyda Jaquez MD LAB BLOOD ORDERA BLES Final Result Performing Organization Address [facility] Co de Phone Number [facility] Department [place] [address] * Troponin I high-sensitivity series (baseline, 2hr, 4hr, 6hr) (01/13/2023 3:14 PM CDT) Trop I hs <4 <=17 ng/L [facility] Comment: Interpretive Data For further hscTnI resources including the diagnostic algorithm and an aid in interpretation, copy and paste this link: [email or web address] Current Interpretive Data last revised 2019. Blood 01/13/2023 3:14 PM CDT 01/13/2023 3:20 PM CDT us Loyda Jaquez MD LAB BLOOD ORDERA BLES Final Result [facility] Department [place] [address] * Pro B-type natriuretic peptide (01/13/2023 3:14 PM CDT) NT-proBNP 68 <=300 pg/mL [facility] Comment: Interpretive Comments: A. Dyspnea in Acute Care Setting All Ages: ?< 300 pg/ml, acute heart failure unlikely. < 50 yrs: ?300 - 450 pg/ml, further investigation warranted. ? > 450 pg/ml, acute heart failure likely. 50 - 74 yrs: ? 300 - 900 pg/ml, further investigation warranted. ? > 900 pg/ml, acute heart failure likely . > or = 75 yrs: ? 450 - 1800 pg/ml, further investigation warranted. ? > 1800 pg/ml, acute heart failure likely. B. Non-acute Setting < 75 yrs ? < 125 pg/ml, rules out heart failure. ? > or = 125 pg/ml, further investigation warranted. > or = 75 yrs ?< 450 pg/ml, rules out heart failure. ? > or = 450 pg/ml, further investigation warranted. - Knowledge of each individual patient's NT-proBNP range may be more useful than using similar cut-points for every patient. Please note that marked elevations in NT-proBNP levels may be observed in state other than Left Ventricular Congestive Failure, including: acute coronary syndromes, right heart strain/failure (including pulmonary embolism and cor pulmonale), critical illness, renal failure, as well as advanced age. - References: 1. Arsenio BROWNING et.al. Eur Heart J. 2006:27:330-337. 2. Saira RW, Tai SONG. J. AM Robert Cardiol: Cardiovasc Imag. 2009;2: 216- 225. Interpretive Data Last Revised Date: 2017. Blood 01/13/2023 3:14 PM CDT 01/13/2023 3:20 PM CDT Loyda Jaquez MD LAB BLOOD ORDERA BLES Final Result [facility] Department [place] [address] * Comprehensive metabolic panel (01/13/2023 3:14 PM CDT) Pathologist [facility] Sodium 139 135 - 145 mmol/L [facility] Potassium, pl 3.9 3.3 - 4.9 mmol/L [facility] Chloride 105 97 - 110 mmol/L [facility] CO2 22 22 - 32 mmol/L [facility] Anion gap 12 2 - 15 mmol/L [facility] BUN 15 6 - 25 mg/dL [facility] Creatinine 1.00 0.60 - 1.10 mg/dL [facility] Glucose 91 70 - 199 mg/dL [facility] Comment: Interpretive Data Fasting glucose >/= 126 [...] classification and Diagnosis of Diabetes Diabetes Care 202; 46: S19-S40. Current interpretive data was last revised 2022. Calcium 9.0 8.5 - 10.3 mg/dL [facility] Bilirubin, total 0.3 0.1 - 1.2 mg/dL [facility] Protein, pl 7.4 6.5 - 8.5 g/dL [facility] Albumin 3.7 3.5 - 5.0 g/dL [facility] Alk phos 82 40 - 130 Units/L [facility] ALT 23 7 - 45 Units/L [facility] AST 19 10 - 45 Units/L [facility] Blood 01/13/2023 3:14 PM CDT 01/13/2023 3:20 PM CDT Loyda Jaquez MD LAB BLOOD ORDERA BLES Final Result [facility] Department [place] [address] * (ABNORMAL) CBC with auto differential (01/13/2023 3:14 PM CDT) WBC 10.2(H) 3.8 - 9.9 K/cumm [facility] Hgb 12.0 11.9 - 15.5 g/dL [facility] Hct 38.2 35.6 - 45.5 % [facility] Plt 288 150 - 400 K/cumm [facility] MPV 8.8(L) 9.1 - 12.3 fL [facility] RBC 4.41 3.90 - 5.20 M/cumm [facility] MCV 86.6 81.3 - 96.4 fL [facility] MCH 27.2 27.1 - 33.3 pg [facility] MCHC 31.4(L) 32.3 - 35.7 g/dL [facility] RDW CV 15.4(H) 11.1 - 14.9 % [facility] RDW SD 48.5(H) 35.7 - 48.1 fL [facility] NRBC abs 0.00 0.00 - 0.01 K/cumm [facility] Blood 01/13/2023 3:14 PM CDT 01/13/2023 3:20 PM CDT us Loyda Jaquez MD LAB BLOOD ORDERA BLES Final Result Performing Organization Address [facility] Co de Phone Number [facility] Department [place] [address] * ECG 12-LEAD (01/13/2023 11:58 AM CDT) Narrative [facility] - 01/13/2023 11:58 AM CDT Kelvin Marquez MD ? 01/13/2023 11:58 AM ECG 12 lead Date/Time: 01/13/2023 11:58 AM Performed by: Kelvin Marquez MD Authorized by: Kelvin Marquez MD ?? Rate: ??ECG rate: ??Rate 92, narrow complex, regular, sinus, nonspecific ST changes including T-wave morphology that is not completely normal however it is somewhat similar to prior ECG from July 23, 2021, no STEMI Procedure Note Kelvin Marquez MD - 01/13/2023 11:58 AM CDT Procedure ECG 12 lead Date/Time: 01/13/2023 11:58 AM Performed by: Kelvin Marquez MD Authorized by: Kelvin Marquez MD Rate: ECG rate: Rate 92, narrow complex, regular, sinus, nonspecific STchanges including T-wave morphology that is not completely normal howeverit is somewhat similar to prior ECG from July 23, 2021, no STEMI Kelvin Marquez MD 01/13/23 1158 us Kelvin Marquez MD ECG ORDERABLES Final Result Performing Organization Address [facility]/ZIP Co de Phone Number [facility] documented in this encounter Visit Diagnoses Diagnosis Aspiration pneumonia due to gastric secretions, unspecified laterality, unspecified part of lung (HCC)- Primary documented in this encounter Administered Medications Inactive Administered Medications - up to 3 most recent administrations Medication Order MAR Action Action Date Dose Rate Site acetaminophen (TYLENOL) tablet 1,000 mg 1,000 mg, oral, Once, On 01/13/23 at 1705, For 1 dose Given 01/13/2023 5:34 PM CDT 1,000 mg al & mag hydroxide simethicone-lidocaine -hyoscamine oral suspension mixture 45 mL, oral, Once, On 01/13/23 at 1705, For 1 dose Given 01/13/2023 5:34 PM CDT 45 mL amoxicillin-clavulana te (AUGMENTIN) 875-125 mg per tablet 875 mg of amoxicillin 875 mg of amoxicillin, oral, Once, On 01/13/23 at 1911, For 1 dose, Indications: Pneumonia, Community AcquiredIndications:P neumonia, Community Acquired Given 01/13/2023 7:22 PM CDT 875 mg of amoxicillin azithromycin (ZITHROMAX) tablet 500 mg 500 mg, oral, Once, On 01/13/23 at 1911, For 1 dose, Indications: Pneumonia, Community AcquiredIndications:P neumonia, Community Acquired Given 01/13/2023 7:23 PM CDT 500 mg dicyclomine (BENTYL) tablet 20 mg 20 mg, oral, Once, On 01/13/23 at 1911, For 1 dose Given 01/13/2023 8:19 PM CDT 20 mg ioversoL (OPTIRAY 350) syringe 100 mL 100 mL, intravenous, Once in imaging, contrast, Starting on 01/13/23 at 1556, For 1 dose Contrast Given 01/13/2023 4:04 PM CDT 75 mL ketorolac (TORADOL) 15 mg/mL injection 15 mg 15 mg, intravenous, Once, On 01/13/23 at 1444, For 1 dose, For Adult IV push, administer over 15 seconds Given 01/13/2023 3:38 PM CDT 15 mg Lactated Ringer's (LR) bolus 1,000 mL 1,000 mL, intravenous, at 1,000 mL/hr, Administer over 1 Hours, Once, On 01/13/23 at 1444, For 1 dose New Bag 01/13/2023 3:38 PM CDT 1,000 mL 1000 mL/hr ondansetron (ZOFRAN) injection 4 mg 4 mg, intravenous, Administer over 2 Minutes, Once, On 01/13/23 at 1444, For 1 dose Given 01/13/2023 3:38 PM CDT 4 mg oxyCODONE (ROXICODONE) tablet 5 mg 5 mg, oral, Once, On 01/13/23 at 1911, For 1 dose, Indications: PainIndications:Pain Given 01/13/2023 7:22 PM CDT 5 mg pantoprazole (PROTONIX) 40 mg in sodium chloride 0.9% 10 mL IV Syringe 40 mg, intravenous, at 300 mL/hr, Administer over 2 Minutes, Once, On 01/13/23 at 1705, For 1 dose, For IV administration, reconstitute 40 mg vial with 10 mL sodium chloride 0.9% for injection for a final concentration of 4 mg/mL, Indications: Treatment of Non-Bleeding Gastric DisorderIndications:T reatment of Non-Bleeding Gastric Disorder Given 01/13/2023 5:34 PM CDT 40 mg 300 mL/hr documented in this encounter Active and Recently Administered Medications Times are shown in CDT. Scheduled Medication Order 01/11/2023 01/12/2023 01/13/2023 acetaminophen (TYLENOL) tablet 1,000 mg (COMPLETED) 1,000 mg, oral, Once, On 01/13/23 at 1705, For 1 dose 1734 (Given - Provid er: Sabina Paula RN) al & mag hydroxide yvjunojbjqh-vaxiddedw-ybdehwpqbn oral suspension mixture (COMPLETED) 45 mL, oral, Once, On 01/13/23 at 1705, For 1 dose 1734 (Given - Provid er: Sabina Paula RN) amoxicillin-clavulanate (AUGMENTIN) 875-125 mg per tablet 875 mg of amoxicillin (COMPLETED) 875 mg of amoxicillin, oral, Once, On 01/13/23 at 1911, For 1 dose, Indications: Pneumonia, Community Acquired 1921 (Given - Provid er: Lulú Dick RN) azithromycin (ZITHROMAX) tablet 500 mg (COMPLETED) 500 mg, oral, Once, On 01/13/23 at 191, For 1 dose, Indications: Pneumonia, Community Acquired 1922 (Given - Provid er: Lulú Dick RN) dicyclomine (BENTYL) tablet 20 mg (COMPLETED) 20 mg, oral, Once, On 01/13/23 at 1911, For 1 dose 2019 (Given - Provid er: Lulú Dick RN) ketorolac (TORADOL) 15 mg/mL injection 15 mg (COMPLETED) 15 mg, intravenous, Once, On 01/13/23 at 1444, For 1 dose, For Adult IV push, administer over 15 seconds 1538 (Given - Provid er: Edvin Bellamy RN) Lactated Ringer's (LR) bolus 1,000 mL (COMPLETED) 1,000 mL, intravenous, at 1,000 mL/hr, Administer over 1 Hours, Once, On 01/13/23 at 1444, For 1 dose 1538 (New Bag - Prov ider: Edvin Bellamy RN)1756 (Stopped - Provider: Ghazala Campbell RN) ondansetron (ZOFRAN) injection 4 mg (COMPLETED) 4 mg, intravenous, Administer over 2 Minutes, Once, On 01/13/23 at 1444, For 1 dose 1538 (Given - Provid er: Edvin Bellamy RN) oxyCODONE (ROXICODONE) tablet 5 mg (COMPLETED) 5 mg, oral, Once, On 01/13/23 at 1911, For 1 dose, Indications: Pain 192 (Given - Provid er: Lulú Dick RN) pantoprazole (PROTONIX) 40 mg in sodium chloride 0.9% 10 mL IV Syringe (COMPLETED) 40 mg, intravenous, at 300 mL/hr, Administer over 2 Minutes, Once, On 01/13/23 at 1705, For 1 dose, For IV administration, reconstitute 40 mg vial with 10 mL sodium chloride 0.9% for injection for a final concentration of 4 mg/mL, Indications: Treatment of Non-Bleeding Gastric Disorder 173 (Given - Provid er: Sabina Paula RN) PRN Medication Order 01/11/2023 01/12/2023 01/13/2023 ioversoL (OPTIRAY 350) syringe 100 mL (COMPLETED) 100 mL, intravenous, Once in imaging, contrast, Starting on 01/13/23 at 1556, For 1 dose 1604 (Contrast Given - Provider: Jose Davison, RT) documented in this encounter Orders Lab Orders Without Results Count Last Ordered D ate First Ordered Date LIPASE 1 01/13/2023 documented in this encounter Additional Health Concerns Infection Onset Date Last Indicated Resolved Time COVID: Suspected 01/13/2023 01/13/2023 01/13/2023 6:45 PM CDT documented as of this encounter Care Teams Case Management Specialist Relationship Specialty Start Date End Date Bhupinder Tobias MD [address] [place] [address] PCP - General Internal Medicine 06/03/20 Cash Heath III, MD [address] [facility] [address] [place] [address] Rheumatology 04/12/17 Jorge Aguiar MD [address] [facility] [address] [place], [place] [id number] Consulting Physician Urology 11/10/20 Khoa Arias MD [address] [facility] [address] [place] [address] Referring Physician Gastroenterology 03/20/21 documented as of this encounter
--- OUTSIDE RECORDS SUMMARY | 2024-04-29 19:22 | XMS_ITS | Encounter Summary ---
Author Organization [facility] Address [address] [place] [address] Care Team Providers Care Cloud Engagement Partner Name Role Phone Isaiah Quiros MD Primary Care Provider [phone] Encounter Details Date Type Department Care Team (Late st Contact Info) Description 05/16/2018 Abstract [facility] Gastroenterology [place] [address] [place] [address] Alex Mahajan MD [address] [facility] [address] [place] [address] Social History Tobacco Use Types [...] on filedocumented in this encounter Care Teams Cloud Engagement Partner Relationship Specialty Start Date End Date Isaiah Quiros MD [address] [place] [address] PCP - General Internal Medicine 04/16/18 documented as of this encounter
--- OUTSIDE RECORDS SUMMARY | 2024-04-29 19:22 | XMS_ITS | Encounter Summary ---
Author Organization [facility] Address [address] [place] [address] Phone Care Team Providers Care Stair Builder Name Role Phone Kumar CARRILLO MD, Cash Howard Unavailable Bhupinder Tobias MD Primary Care Provider [phone] Jorge Aguiar MD Unavailable [phone] Khoa Arias MD Unavailable [phone] Encounter Details Date Type Department Care Team (Late st Contact Info) Description 12/11/2021 11:15 AM CDT Office Visit [facility] [address] [place] [address] Miriam Frye PA [address] [place] [address] Psoriatic arthritis (HCC) (Primary Dx); Abnormal serum level of lipase Social History Tobacco Use Types Packs/Day Years [...] on file 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 Gender Identity Female 08/14/2022 11:32 AM CDT Sexual Orientation Straight 02/13/2023 7: 01 AM CDT documented as of this encounter Last Filed Vital Signs Vital Sign Reading Time Taken Comments Blood Pressure 112/78 12/11/2021 11:31 AM CDT Pulse 78 12/11/2021 11:31 AM CDT Temperature - - Respiratory Rate - - Oxygen Saturation 98% 12/11/2021 11:31 AM CDT Inhaled Oxygen Concentration - - Weight 90.9 kg (200 lb 6.4 oz) 12/11/2021 11:31 AM CDT Height - - Body Mass Index 32.84 11/29/2021 3:39 PM CDT documented in this encounter Progress Notes * Miriam Frye PA - 12/11/2021 11:15 AM CDT Images from the original note were not included. Subjective/Objective Patient ID: Julian Smith is a 46 y.o. female. Chief Complaint PsA HPI Review of Systems Constitutional: Negative for fatigue and fever. HENT: Negative for mouth sores. Respiratory: Negative for cough, chest tightness and shortness of breath. Cardiovascular: Negative for chest pain. Skin: Negative for rash. Physical Exam Constitutional: She appears well-developed and well-nourished. Head: Normocephalic and atraumatic. Right Ear: External ear normal. Left Ear: External ear normal. Nose: Nose normal. Mouth/Throat: Oropharynx is clear and moist. Eyes: Conjunctivae and lids are normal. Pupils are equal, round, and reactive to light. Neck: Neck supple. Cardiovascular: Normal rate, regular rhythm and normal heart sounds. Pulmonary/Chest: Effort normal and breath sounds normal. Musculoskeletal: see cdai. Mod crepitus rt knee, light lt knee. Full rom of bilat knees, no swelling. Lymphadenopathy: No lymphadenopathy. Neurological: Alert and oriented x 3. Skin: Skin is warm and dry. Psychiatric: Normal mood. Vitals reviewed. CDAI: 21 Labs Lab Results Component Value Date WBC 7.0 09/11/2021 HGB 13.6 09/11/2021 HCT 42.7 09/11/2021 MCV 90.9 09/11/2021 Lab Results Component Value Date GLUCOSE 86 09/11/2021 CALCIUM 9.0 09/11/2021 SODIUM 140 09/11/2021 POTASSIUM 4.1 09/11/2021 CO2 26 09/11/2021 CHLORIDE 104 09/11/2021 BUNSER 13 09/11/2021 CREATININE 0.89 09/11/2021 Lab Results Component Value Date ALT 15 09/11/2021 AST 11 09/11/2021 ALKPHOS 79 09/11/2021 BILITOT 0.3 09/11/2021 Lab Results Component Value Date SEDRATE 6 09/11/2021 Lab Results Component Value Date CRP 11.0 (H) 09/11/2021 Assessment/Plan Diagnoses and all orders for this visit: Psoriatic arthritis (HCC) (Primary) Assessment & Plan: mod cdai. Pt can restart orencia but will hold off restarting arava until she gets labs in 2 weeks after her rt knee arthroscopic surgery. Then repeat labs 2 weeks after and f/u in 1month after starting arava. Her orencia will be restarted 2 weeks after her rt knee surgery if she has no complications or infections. Seeing gi at [facility] now for her elevated lipase. [place] and egd utd and nl in past yearper pt. If labs stable will restart low dose arava 10mg po every day. To stay off orencia until recovered from rt knee surgery. Past serologies: [facility] panel 08/2019---labs reveal positive anti-MULTIPLE SPINDLE ROUTER OPERATOR antibody which is likely a false positive due tonegative ASHLEY. ?? RF neg but has a possible family hx of psoriatic arthritis (father) so if she develops psoriasis diagnosis will change to psoriatic arthritis. Rt hand US 09/2019 showed: ??F/u 1 month. Orders: - CBC with auto differential; Future - Comprehensive metabolic panel; Future - CRP (acute phase); Future - Erythrocyte sedimentation rate; Future - Amylase; Future - Lipase; Future Abnormal serum level of lipase Assessment & Plan: To f/u with gi. Orders: - CBC with auto differential; Future - Comprehensive metabolic panel; Future - CRP (acute phase); Future - Erythrocyte sedimentation rate; Future - Amylase; Future - Lipase; Future documented in this encounter Miscellaneous Notes * Result Encounter Note - Tiara Rainey - 12/29/2021 1:59 PM CDT Lab results & instructions left on vm. Lab order generated & mailed to pt. Labs sent to pcp * Result Encounter Note - Miriam Frye PA - 12/29/2021 1:54 PM CDT Lipase still mildly elevated. Crp elevated. Creat is up. Make sure she is drinking plenty of water.Repeat cmp in 1 month. Send results to her gi and pcp. * Assessment & Plan Note - Miriam Frye PA - 12/11/2021 1:10 PM CDTAssociated Problem(s): Encounter for long-term (current) use of [...] showed osteoporosis Avise 08/2019---[facility] labs reveal positive anti-MULTIPLE SPINDLE ROUTER OPERATOR antibody which is likely a false positive due tonegative ASHLEY. Her father had psoriasis, pt changed from ra to PsA on 03/25/2020. ?? * Assessment & Plan Note - Miriam Frye PA - 12/11/2021 1:09 PM CDTAssociated Problem(s): Abnormal serum level of lipase To f/u with gi. * Assessment & Plan Note - Miriam Frye PA - 12/11/2021 1:02 PM CDTAssociated Problem(s): Psoriatic arthritis (HCC) Images from the original note were not included. mod cdai. Pt can restart orencia but will hold off restarting arava until she gets labs in 2 weeks after her rt knee arthroscopic surgery. Then repeat labs 2 weeks after and f/u in 1month after starting arava. Her orencia will be restarted 2 weeks after her rt knee surgery if she has no complications or infections. Seeing gi at [facility] now for her elevated lipase. Jefferson and egd utd and nl in past yearper pt. If labs stable will restart low dose arava 10mg po every day. To stay off orencia until recovered from rt knee surgery. Past serologies: [facility] panel 08/2019---labs reveal positive anti-MULTIPLE SPINDLE ROUTER OPERATOR antibody which is likely a false positive due tonegative ASHLEY. ?? RF neg but has a possible family hx of psoriatic arthritis (father) so if she develops psoriasis diagnosis will change to psoriatic arthritis. Rt hand US 09/2019 showed: ??F/u 1 month. * Addendum Note - Miriam Frye PA - 12/11/2021 11:15 AM CDT Addended by: MIRIAM FRYE on: 12/29/2021 01:54 PM Modules accepted: Orders documented in this encounter Plan of Treatment Scheduled Orders Name Type Priority Associated Diagnoses Orde r Schedule Amylase Lab Routine Psoriatic arthritis (HCC) Abnormal serum level of lipase Expected: 12/11/2021, Expires: 12/11/2022 Lipase Lab Routine Psoriatic arthritis (HCC) Abnormal serum level of lipase Expected: 12/11/2021, Expires: 12/11/2022 Comprehensive metabolic panel Lab Routine Psoriatic arthritis (HCC) Abnormal serum level of lipase Expected: 01/26/2022, Expires: 12/29/2022 documented as of this encounter Procedures Procedure Name Priority Date/Time Associated Diagnosis Comments CBC WITH AUTO DIFFERENTIAL Routine 12/28/2021 10:56 AM CDT Psoriatic arthritis (HCC) Abnormal serum level of lipase ERYTHROCYTE SEDIMENTATION RATE Routine 12/28/2021 10:56 AM CDT Psoriatic arthritis (HCC) Abnormal serum level of lipase CRP (ACUTE PHASE) Routine 12/28/2021 10: 56 AM CDT Psoriatic arthritis (HCC) Abnormal serum level of lipase LIPASE Routine 12/28/2021 10:56 AM CDT AMYLASE Routine 12/28/2021 10:56 AM CDT COMPREHENSIVE METABOLIC PANEL Routine 12/28/2021 10:56 AM CDT Psoriatic arthritis (HCC) Abnormal serum level of lipase documented in this encounter Results * (ABNORMAL) Lipase (12/28/2021 10:56 AM CDT) LIPASE 79(H) 7 - 60 U/L [facility] 12/28/2021 10:5 6 AM CDT 12/28/2021 10:57 AM CDT us Miriam VALLE LAB BLOOD ORDERAB LES Final Result [facility] [address] [place] [address] * Amylase (12/28/2021 10:56 AM CDT) Pathologist [facility] Amylase 72 21 - 101 U/L [facility] 12/28/2021 10:5 6 AM CDT 12/28/2021 10:57 AM CDT Miriam VALLE LAB BLOOD ORDERAB LES Final Result Performing Organization Address City/[facility]/ZIP Co de Phone Number [facility] [address] [facility] [address] * Erythrocyte sedimentation rate (12/28/2021 10:56 AM CDT) Pathologist [facility] Erythrocyte sedimentation rate 17 < OR = 20 mm/h [facility] Blood specimen (specimen) 12/28/2021 10:56 AM CDT 12/28/2021 10:57 AM CDT Miriam VALLE LAB BLOOD ORDERAB LES Final Result Performing Organization Address [facility] Co de Phone Number [facility] [address] [facility] [address] * (ABNORMAL) CRP (acute phase) (12/28/2021 10:56 AM CDT) Pathologist [facility] C-RP 12.9(H) <8.0 mg/L [facility] Blood specimen (specimen) 12/28/2021 10:56 AM CDT 12/28/2021 10:57 AM CDT Miriam VALLE LAB BLOOD ORDERAB LES Final Result Performing Organization Address City/[facility]/ZIP Co de Phone Number [facility] [address] [place] [address] * (ABNORMAL) Comprehensive metabolic panel (12/28/2021 10:56 AM CDT) Glucose 91 65 - 99 mg/dL [facility] Comment: ? Fasting reference interval BUN 15 7 - 25 mg/dL [facility] Creatinine 1.10(H) 0.50 - 0.99 mg/dL [facility] eGFR 62 > OR = 60 mL/min/1.7 3m2 [facility] Comment: The eGFR is based on the CKD-EPI 2020 equation. To calculate the new eGFR from a previous Creatinine or Cystatin C result, go to https://www.kidney.org/professionals/ kdoqi/gfr%5Fcalculator BUN/creat ratio 14 6 - 22 (calc) [facility] Sodium 136 135 - 146 mmol/L [facility] Potassium, pl 4.2 3.5 - 5.3 mmol/L [facility] Chloride 102 98 - 110 mmol/L [facility] CO2 25 20 - 32 mmol/L [facility] Calcium 9.0 8.6 - 10.2 mg/dL [facility] Protein, sr 7.2 6.1 - 8.1 g/dL [facility] Albumin 4.3 3.6 - 5.1 g/dL [facility] GLOBULIN 2.9 1.9 - 3.7 g/dL (calc) [facility] Alb/glob ratio 1.5 1.0 - 2.5 (calc) [facility] Bilirubin, total 0.4 0.2 - 1.2 mg/dL [facility] Alk phos 91 31 - 125 U/L [facility] AST 16 10 - 35 U/L [facility] ALT (SGPT) 22 6 - 29 U/L [facility] Blood specimen (specimen) 12/28/2021 10:56 AM CDT 12/28/2021 10:57 AM CDT Miriam VALLE LAB BLOOD ORDERAB LES Final Result [facility] [address] [address] [address] * (ABNORMAL) CBC with auto differential (12/28/2021 10:56 AM CDT) WBC 7.9 3.8 - 10.8 Thousand/u L [facility] RBC, POC 4.63 3.80 - 5.10 Million/uL [facility] Hgb 13.2 11.7 - 15.5 g/dL [facility] Hct 41.4 35.0 - 45.0 % [facility] MCV 89.4 80.0 - 100.0 fL [facility] MCH 28.5 27.0 - 33.0 pg [facility] MCHC 31.9(L) 32.0 - 36.0 g/dL [facility] Rdw 13.9 11.0 - 15.0 % [facility] Platelets 327 140 - 400 Thousand/u L [facility] MPV 8.9 7.5 - 12.5 fL [facility] Neutrophils, abs 5,585 1,500 - 7,800 cells/uL [facility] Lymphocytes, abs 1,635 850 - 3,900 cells/uL [facility] Monocyte abs 490 200 - 950 cells/uL [facility] Eosinophils, abs 103 15 - 500 cells/uL [facility] Basophils, abs 87 0 - 200 cells/uL [facility] Neutrophils 70.7 % [facility] Lymphocyte pct 20.7 % [facility] Monocytes 6.2 % [facility] Eosinophils 1.3 % [facility] Basophils 1.1 % [facility] Blood specimen (specimen) 12/28/2021 10:56 AM CDT 12/28/2021 10:57 AM CDT Miriam VALLE LAB BLOOD ORDERAB LES Final Result [facility] [address] [id number] documented in this encounter Visit Diagnoses Diagnosis Psoriatic arthritis (HCC)- Primary Psoriatic arthropathy Abnormal serum level of lipase Other nonspecific abnormal serum enzyme levels documented in this encounter Care Teams Stair Builder Relationship Specialty Start Date End Date Bhupinder Tobias MD [address] [facility] [address] [place] [address] PCP - General Internal Medicine 06/03/20 Cash Heath III, MD [address] [facility] [address] [place] [address] Rheumatology 04/12/17 Jorge Aguiar MD [address] [facility] [address] [place] [address] Consulting Physician Urology 11/10/20 Khoa Arias MD [address] [facility] [address] [place] [address] Referring Physician Gastroenterology 03/20/21 documented as of this encounter
--- OUTSIDE RECORDS SUMMARY | 2024-04-29 19:22 | XMS_ITS | Encounter Summary ---
Author Organization [facility] Address [address] [facility] [address] [place] [address] Phone Care Team Providers Care Roof Foreman Name Role Phone Kumar CARRILLO MD, Cash Howard Unavailable [phone] Bhupinder Tobias MD Primary Care Provider [phone] Jorge Aguiar MD Unavailable [phone] Khoa Arias MD Unavailable [phone] Reason for Visit * Reason Comments Diverticulitis New Patient Encounter Details Date Type Department Care Team (Latest Contact Info) Description 08/14/2022 3:15 PM CDT Telemedicine [facility] Surgery [address] [place] [address] Medical Office Building [address] [place] [address] Jose De Jesus Calderon MD [address] [facility] [phone] [place] [address] Diverticulitis large intestine w/o perforation or abscess w/o bleeding (Primary Dx) Social History Tobacco Use Types Packs/Day Years Used Date Smoking Tobacco: Former Cigarettes 0.5 10 0 04/22/2002 - 04/22/2012 Smokeless Tobacco: Never Tobacco Cessation:Counseling Given: Not Answered Alcohol Use Standard Drinks/Week Comments No 0 [...] on file 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 female with chief complaint of Diverticulitis (New Patient) Dr. Pietro Harris requested I evaluate this patient with diverticulitis. HPI: 47-year-old woman with left lower quadrant pain. She also has underlying Meredith-Danlos syndrome. She has been having constant left lower quadrant pain for over 5-6 years. It does get a it with constipation and diarrhea. As she does appear to have symptoms consistent with irritable bowel syndrome as she alternates between constipation and diarrhea. Per the patient she is had 3-4 bouts of diverticulitis. However I have CT images dating all the way back to 2013 and include 2014 2015 2021 and . I personally reviewed all of these images and none of them show any evidence of acute diverticulitis. She clearly does have diverticular disease. Earlier this year she was admitted to the hospitalfor 4 days with acute diverticulitis but that is CT scan is not available. She currently has now back at her baseline level of symptoms. As mentioned the pain is constant and is her baseline pain is different than her diverticular pain. Past Medical History: Diagnosis Date Autoimmune disease (CMS/HCC) (HCC) Rheumatoid Arthritis Diverticulitis Meredith-Danlos syndrome Hemorrhoid IBS (irritable bowel syndrome) Kidney stone Menstrual problem irregular and heavy Migraine Peptic ulceration RA (rheumatoid arthritis) ([facility]) Past Surgical History: Procedure Laterality Date SECTION COLONOSCOPY 12/15/2015 FACIAL SURGERY KNEE ARTHROSCOPY W/ LATERAL RELEASE 1990, 1991, 2021 KNEE SURGERY knee surgery LITHOTRIPSY TONSILLECTOMY UPPER GASTROINTESTINAL ENDOSCOPY HOME MEDICATIONS : alendronate (FOSAMAX) 70 mg tablet ALPRAZolam (XANAX) 1 mg tablet AMITIZA 24 mcg capsule buPROPion XL (WELLBUTRIN XL) 300 mg 24 hr tablet diclofenac sodium 20 mg/gram /actuation(2 %) solution in metered-dose pump dicyclomine (BENTYL) [address] (CYMBALTA) 60 mg capsule gabapentin (NEURONTIN) 100 mg capsule HYDROcodone-acetaminophen (NORCO) 5-325 mg per tablet ondansetron ODT (ZOFRAN-ODT) 8 [address]integr[address] tablet pantoprazole DR (PROTONIX) 40 mg EC tablet polyethylene glycol (MIRALAX) 17 gram/dose powder potassium citrate ER (UROCIT-K) 15 mEq tablet extended release predniSONE (DELTASONE) 5 mg tablet propranoloL (INDERAL) 10 mg tablet Saccharomyces boulardii (FLORASTOR) 250 mg capsule SUMAtriptan (IMITREX) 50 mg tablet tamsulosin (FLOMAX) 0.4 mg extended release capsule traZODone (DESYREL) 100 mg tablet triamcinolone (KENALOG) 0.1 % paste Trulance 3 mg tablet Allergies Allergen Reactions Ibuprofen Nausea & Vomiting Stomach ulcers - tablets - okay with IV Social History Tobacco Use Smoking status: Former Packs/day: 0.50 Years: 10.00 Pack years: 5.00 Types: Cigarettes Quit date: 04/22/2012 Years since quittin.3 Smokeless tobacco: Never Substance and Sexual Activity Drug use: Not Currently Types: Benzodiazepines, Hydrocodone, Medical marijuana Sexual activity: Yes Partners: Male Alcohol Use: Not At Risk (11/29/2021) AUDIT-C Frequency of Alcohol Consumption: Monthly or less Average Number of Drinks: 1 or 2 Frequency of Binge Drinking: Never Family History Problem Relation Age of Onset [...] cancer Neg Hx Liver cancer Neg Hx Review of Systems: All systems are negative except as per HPI and scanned media. Vitals: There were no vitals taken for this visit. Physical exam: Not performed Assessment: Madalyn Smith is a 47 y.o. female with diverticulitis Plan: I do think that she has had at least 1 attack of acute diverticulitis. However I think her baseline lingering pains are most likely not related to diverticulitis and more likely related to her irritable bowel syndrome. I would like to obtain the films of her recent attack to review these 2 confirmed presence of pericolonic inflammation. We had also had a lengthy discussion regarding the natural history of diverticulitis in the indications for surgery and what the risks benefits and alternatives of surgery all entail. I will see her back in a couple of months and we will re-evaluate how she is doing and formulate a definitive plan at that point in time. This was a telemedicine visit with Madalyn Smith alone which took place via Telephone Other - patient preference . During the visit, I was located in the office and the patient was located home in the [facility]. The patient visit started at 2 o'clock p.m. and ended at 2:15 p.m.. My total encounter time on 08/14/2022 was 45 minutes which was spent in the activities documented in the note. This includes time spent prior to the visit and after the visit in direct care of the patient. This time does not include time spent in any separately reportable services. The patient: has been informed that the visit may not be secure and acknowledged the information. The option of participating in a telephone or video visit during the [facility] public [facility] emergencywas explained to them. After being given an opportunity to ask questions about and discuss this type of visit, they verbally consented to proceeding with the telephone/video visit and understand thatthis service replaces an office visit. Jose De Jesus Calderon MD 08/14/2022 2:12 PM documented in this encounter Plan of Treatment Not on file documented as of this encounter Visit Diagnoses Diagnosis Diverticulitis large intestine w/o perforation or abscess w/o bleeding- Primary documented in this encounter Care Teams Roof Foreman Relationship Specialty Start Date End Date Bhupinder Tobias MD [address] [facility] [address] [place] [address] PCP - General Internal Medicine 06/03/20 Cash Heath III, MD [address] [facility] [address] [place] [address] Rheumatology 04/12/17 Jorge Aguiar MD [address] [facility] [address] [facility] [address] [place] [address] Consulting Physician Urology 11/10/20 Khoa Arias MD [address] [facility] [address] [place] [address] [address] [place] [address] Referring Physician Gastroenterology 03/20/21 documented as of this encounter
--- OUTSIDE RECORDS SUMMARY | 2024-04-29 19:22 | XMS_ITS | Encounter Summary ---
Author Organization [facility] Address [address] [place] [address] Phone Care Team Providers Care Simulation Analyst Name Role Phone Kumar CARRILLO MD, Cash Howard Unavailable [phone] Bhupinder Tobias MD Primary Care Provider [phone] Jorge Aguiar MD Unavailable [phone] Khoa Arias MD Unavailable [phone] Reason for Visit * Reason Onset Date Comments Referral Request 07/06/2022 Encounter Details Date Type Department Care Team (Late st Contact Info) Description 07/06/2022 Telephone [facility] Department of Surgery, Section of Colon and Rectal Surgery [address] [facility] Advanced Medicine [address]th Floor, [place] [address] Elena Don CMA Referral Request Social History Tobacco Use Types Packs/Day [...] on file 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 Referral in que/chart/OnBase and deferred for 2 days. documented in this encounter Plan of Treatment Not on file documented as of this encounter Visit Diagnoses Not on filedocumented in this encounter Care Teams Simulation Analyst Relationship Specialty Start Date End Date Bhupinder Tobias MD [address] [place] [address] PCP - General Internal Medicine 06/03/20 Cash Heath III, MD [address] [address] Rheumatology 04/12/17 Jorge Aguiar MD [address] [place] [place] [address] Consulting Physician Urology 11/10/20 Khoa Arias MD [facility] [address] [address] Referring Physician Gastroenterology 03/20/21 documented as of this encounter
--- OUTSIDE RECORDS SUMMARY | 2024-04-29 19:22 | XMS_ITS | Encounter Summary ---
Author Organization [facility] Address [address] [place] [address] Phone Care Team Providers Care Cook Specialty Foreign Food Name Role Phone Kumar CARRILLO MD, Cash Howard Unavailable [phone] Bhupinder Tobias MD Primary Care Provider [phone] Jorge Aguiar MD Unavailable [phone] Khoa Arias MD Unavailable [phone] Reason for Visit * Reason Onset Date Comments Medical Records Checklist 08/09/2022 Encounter Details Date Type Department Care Team (Late st Contact Info) Description 08/09/2022 Telephone [facility] Department of Surgery, Section of Colon and Rectal Surgery [address] [facility] Advanced Medicine 12th Floor, [place] [address] Anu Lin, B.A. 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 - 08/09/2022 1:22 PM CDT Medical Records include: Clinic notes pertaining to diagnosis In Media Colonoscopy 06/08/2021 outside Radiology reports Yes 08/01/2022 MRI 06/2022 CT 06/12/2022 Upload Images Yes documented in this encounter Plan of Treatment Not on file documented as of this encounter Visit Diagnoses Not on filedocumented in this encounter Care Teams Cook Specialty Foreign Food Relationship Specialty Start Date End Date Bhupinder Tobias MD [address] [facility] [address] [address] PCP - General Internal Medicine 06/03/20 Cash Heath III, MD [address] [facility] [address] [place] [address] Rheumatology 04/12/17 Jorge Aguiar MD [address] [facility] [address] [facility] 120 [place] [address] Consulting Physician Urology 11/10/20 Khoa Arias MD [address] [address] Referring Physician Gastroenterology 11/29/21 documented as of this encounter
--- OUTSIDE RECORDS SUMMARY | 2024-04-29 19:22 | XMS_ITS | Encounter Summary ---
Author Organization [facility] Address [address] [place] [address] Phone Care Team Providers Care Home Health Registered Nurse Name Role Phone Kumar CARRILLO MD, Cash Howard Unavailable [phone] Bhupinder Tboias MD Primary Care Provider [phone] Jorge Aguiar MD Unavailable [phone] Khoa Arias MD Unavailable [phone] Reason for Visit * Reason Onset Date Comments Referral Request 07/12/2022 Encounter Details Date Type Department Care Team (Late st Contact Info) Description 07/12/2022 Telephone [facility] Department of Surgery, Section of Colon and Rectal Surgery [address] [facility] Advanced Medicine 12th Floor, [place] [address] Elena Don CMA Referral Request [...] on file 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 documented in this encounter Plan of Treatment Not on file documented as of this encounter Visit Diagnoses Not on filedocumented in this encounter Care Teams Home Health Registered Nurse Relationship Specialty Start Date End Date Bhupinder Tobias MD [address] [address] PCP - General Internal Medicine 06/03/20 Cash Heath III, MD [address] [address] Rheumatology 04/12/17 Jorge Aguiar MD [address] [place] [address] [place] [address] Consulting Physician Urology 11/10/20 Khoa Arias MD [address] [address] Referring Physician Gastroenterology 03/20/21 documented as of this encounter
--- OUTSIDE RECORDS SUMMARY | 2024-04-29 19:22 | XMS_ITS | Encounter Summary ---
Author Organization [facility] Address [address] [place] [address] Phone Care Team Providers Care Cross Cut Sawyer Name Role Phone Kumar CARRILLO MD, Cash Howard Unavailable [phone] Bhupinder Tobias MD Primary Care Provider [phone] Jorge Aguiar MD Unavailable [phone] Khoa Arias MD Unavailable [phone] Reason for Visit * Consultation (Routine) - Closed Specialty Diagnoses / Procedures Referred By Contac t Referred To Contact Minimally Invasive Surgery Diagnoses Gastroesophageal reflux disease with esophagitis, unspecified whether hemorrhage Pietro Harris MD [address] [facility] [address] [place] [address] Phone: tel: fax: Eyad Servin MD PhD [address] [place] [address] Phone: tel: fax: Referral ID Status Reason Start Date Expiration Date V isits Requested Visits Authorized [id number] Closed Specialty Services Required 12/06/2022 01/05/2024 12 12 Encounter Details Date Type Department Care Team ([facility] Contact Info) Description 02/13/2023 1:00 PM CDT Office [facility] Minimally Invasive Surgery [address] [facility] Advanced Medicine 12th Floor, [place] [address] Eyad Servin MD PhD [address] [place] [address] Hiatal hernia with GERD (Primary Dx); Gastroesophageal reflux disease with esophagitis, unspecified whether hemorrhage Social History Tobacco Use Types Packs/Day Years [...] on file 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 Gender Identity Female 08/14/2022 11:32 AM CDT Sexual Orientation Straight 02/13/2023 7: 01 AM CDT documented as of this encounter Last Filed Vital Signs Vital Sign Reading Time Taken Comments Blood Pressure 138/82 02/13/2023 1:08 PM CDT Pulse 88 02/13/2023 1:08 PM CDT Temperature 36.1 ??C (96.9 ??F) 02/13/2023 1:08 PM CD T Respiratory Rate - - Oxygen Saturation - - Inhaled Oxygen Concentration - - Weight 94.3 kg (207 lb 12.8 oz) 02/13/2023 1:08 PM CDT Height 165.1 cm (5' 5 ) 02/13/2023 1:08 PM CDT Body Mass Index 34.58 02/13/2023 1:08 PM CDT documented in this encounter Progress Notes * Luis Cordova MD - 02/13/2023 1:00 PM CDT error * Eyad Servin MD PhD - 02/13/2023 1:00 PM CDT PT NAME: Madalyn Smith : 1975 DOS: 02/13/2023 #[id number] PRIMARY CARE PHYSICIAN: Bhupinder Tobias MD REFERRING PHYSICIAN: Pietro Harris MD REASON FOR CLINIC VISIT: Consultation requested by Pietro Harris MD for reflux. BRIEF HISTORY: Madalyn Smith is a 47 y.o. year-old female who chief complaint of reflux. She describes typical symptoms including reflux, regurgitation, and heartburn worse with spicy food. She also has atypical symptoms including aspiration, cough , and recent pneumonia. She also has a couple yearhistory of vague abdominal pain and melena that has had a negative workup so far-- she does have a history of IBS C/D and diverticulitis. She also describes some oropharyngeal dysphagia. The patient has tried altering her diet to avoid spicy foods, alcohol, caffeine and chocolate; eating smaller meals, and avoiding eating close to bedtime. The patient has also tried elevating the head of the bed at night. The patient has tried anti-reflux medication including 40 BID pantoprazole, which has provided only limited relief. The patient denies dysphagia to solids/liquids; hematemesis or melena; coughing, wheezing or asthma; early satiety, nausea, vomiting or bloating. The GERD-HRQL score is 31. Of note, the patient will undergo lap hysterectomy next week for an enlarged uterus that she believes may be playing a role in her idiopathic abdominal pain. PAST MEDICAL HISTORY: The patient has a past medical history of Autoimmune disease ([facility]) ([facility]) (Rheumatoid Arthritis), Diverticulitis, Meredith-Danlos syndrome, Hemorrhoid, IBS (irritable bowel syndrome), Kidney stone, Menstrual problem (irregular and heavy), Migraine, Peptic ulceration, and RA (rheumatoid arthritis) ([facility]). PAST SURGICAL HISTORY: Past Surgical History: Procedure Laterality Date SECTION COLONOSCOPY 12/15/2015 FACIAL SURGERY KNEE ARTHROSCOPY W/ LATERAL RELEASE 1990, 1991, 2021 KNEE SURGERY knee surgery LITHOTRIPSY TONSILLECTOMY UPPER GASTROINTESTINAL ENDOSCOPY MEDICATIONS: Current Outpatient Medications: ALPRAZolam (XANAX) 1 mg tablet azithromycin (ZITHROMAX) 250 mg tablet buPROPion XL (WELLBUTRIN XL) 300 mg 24 hr tablet dicyclomine (BENTYL) 10 mg capsule dicyclomine (BENTYL) [address] (CYMBALTA) 60 mg capsule fluconazole (DIFLUCAN) 150 mg tablet gabapentin (NEURONTIN) 100 mg capsule HYDROcodone-acetaminophen (NORCO) 5-325 mg per tablet metoclopramide (REGLAN) 5 mg tablet ondansetron ODT (ZOFRAN-ODT) 4 mg disintegrating tablet ondansetron ODT (ZOFRAN-ODT) 8 [address]integrating tablet pantoprazole DR (PROTONIX) 40 mg EC tablet potassium citrate ER (UROCIT-K) 15 mEq tablet extended release propranoloL (INDERAL) 10 mg tablet sucralfate (CARAFATE) 1 gram tablet SUMAtriptan (IMITREX) 50 mg tablet tamsulosin (FLOMAX) 0.4 mg extended release capsule traZODone (DESYREL) 100 mg tablet triamcinolone (KENALOG) 0.1 % paste Trulance 3 mg tablet ALLERGIES: No Known Allergies Social History Tobacco Use Smoking status: Former Packs/day: 0.50 Years: 10.00 Additional pack years: 0.00 Total pack years: 5.00 Types: Cigarettes Quit date: 04/22/2012 Years since quittin.8 Smokeless tobacco: Never Substance and Sexual Activity Drug use: Yes Types: Marijuana Sexual activity: Yes Partners: Male Alcohol Use: Unknown (11/29/2021) AUDIT-C Frequency of Alcohol Consumption: Monthly or less Average Number of Drinks: Not on file Frequency of Binge Drinking: Not on file FAMILY HISTORY: The patient's family history includes Alzheimer's disease in her paternal grandmother; Arthritis inher father, father's brother, father's sister, maternal grandfather, maternal grandmother, mother, paternal grandfather, and paternal grandmother; Cancer in her father, maternal grandfather, maternalgrandmother, paternal grandfather, and another family member; Crohn's disease in an other family member; Diabetes in her father's sister; Lung cancer in an other family member; Memory loss in her maternal grandmother and paternal grandmother; Mental illness in her mother; Obesity in her father; Other in an other family member; Rashes / Skin problems in her son; Skin cancer in an other family member. REVIEW OF SYSTEMS: A comprehensive 15-point review of systems was completed by the patient and reviewed in clinic today as documented in the medical record. PHYSICAL EXAMINATION: Vitals: 02/13/23 1308 BP: 138/82 BP Location: Right arm Patient Position: Sitting Pulse: 88 Temp: 36.1 ??C (96.9 ??F) TempSrc: Temporal Weight: 94.3 kg (207 lb 12.8 oz) Height: 165.1 cm (5' 5 ) Body mass index is 34.58 kg/m??. General: Alert and oriented, in no acute distress. Head: Atraumatic, normocephalic. Eyes: Pupils are equal, round and reactive to light and accommodation. Extraocular muscles are intact. Mouth: Moistmucus membranes. Neck: Supple with no lymphadenopathy. Chest: Non labored breathing Cardiovascular:Well perfused. Abdomen: Soft, nondistended, mild rj umbilical tenderness, low well healed transverse incision. Extremities: Warm and dry. Neurovascular: Grossly intact. REVIEW OF STUDIES: All studies independently reviewed by myself. Barium swallow from OSH (10/03/22)-- small sliding hiatal hernia Gastric emptying study (10/11/22)-- mild delayed gastric emptying although of note the patient was on both THC and opioids which make the study indeterminate EGD (12/06/22)-- non erosive reflux disease at the [place] scan (01/13/23)-- small type 1 hiatal hernia ASSESSMENT AND PLAN: Madalyn Smith is a 47 y.o. year-old female with likely medically refractory GERD and an associated type 1 hiatal hernia. To confirm her GERD, we will get a pH study and we will also get manometry. Assuming the studies confirm our suspicion, I do believe she would be a good candidate for a laparoscopic hiatal hernia repair and fundoplication. We will refer her for CPAP evaluation. The indications, benefits, risks, and alternatives were discussed in detail. I described that Ialso occasionally do these procedures using the surgical robot which provides me with some added dexterity during the procedure. The risks of surgery include pain, infection, bleeding, risks of general anesthesia (including heart attack, stroke, pulmonary embolism, deep venous thrombosis, pneumonia, and ); injury to nearby organs such as the esophagus, stomach, liver, spleen, lung, bowel andpancreas; persistent reflux, belching/bloating or difficulty swallowing. The patient expressed understanding of these risks and wishes to proceed. We will plan to schedule this at her earliest convenience. Sincerely, Eyad Servin MD, PhD, FACS preschool program director Minimally Invasive Foregut and General Surgery Director, Robotic Surgery, [facility] HealthCare Director, [facility] [employer] [facility] [employer] ([place]) Director, [facility] [employer] Fellowship [facility] [place], [place] Office phone: [phone] I have seen and examined the patient along with the resident and agree with the note and plan as documented above. documented in this encounter Plan of Treatment Not on file documented as of this encounter Visit Diagnoses Diagnosis Hiatal hernia with GERD- Primary Gastroesophageal reflux disease with esophagitis, unspecified whether hemorrhage documented in this encounter Orders Outpatient Referral Count Last Ordered Date Fir st Ordered Date AMB REFERRAL TO MINIMALLY INVASIVE SURGERY 1 02/13/2023 documented in this encounter Care Teams Cross Cut Sawyer Relationship Specialty Start Date End Date Bhupinder Tobias MD [address] [place] [address] PCP - General Internal Medicine 06/03/20 Cash Heath III, MD [address] [facility] [address] [place] [address] Rheumatology 04/12/17 Jorge Aguiar MD [address] [place] [address] Consulting Physician Urology 11/10/20 Khoa Arias MD [address] [facility] [address] [place] [address] Referring Physician Gastroenterology 03/20/21 documented as of this encounter
--- OUTSIDE RECORDS SUMMARY | 2024-04-29 19:22 | XMS_ITS | Encounter Summary ---
Author Organization [facility] Address [address] [facility] [address] [place] [address] Phone Care Team Providers Care Waistline Joiner Lockstitch Name Role Phone Kumar CARRILLO MD, Cash Howard Unavailable [phone] Bhupinder Tobias MD Primary Care Provider [phone] Jorge Aguiar MD Unavailable [phone] Khoa Arais MD Unavailable [phone] Reason for Visit * Reason Onset Date Comments office appointment 07/04/2022 Encounter Details Date Type Department Care Team (Late st Contact Info) Description 07/04/2022 Telephone [facility] Department of Surgery, Section of Colon and Rectal Surgery [address] [facility] Advanced Medicine 12th Floor, [place] [address] Anu Lin, B.A. 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 - 07/04/2022 3:42 PM CDT Left voicemail for patient to schedule an appointment with Dr. Calderon. Dx Diverticulitis. Discuss surgery. Can be telemed. documented in this encounter Plan of Treatment Not on file documented as of this encounter Visit Diagnoses Not on filedocumented in this encounter Care Teams Waistline Joiner Lockstitch Relationship Specialty Start Date End Date Bhupinder Tobias MD [address] [address] PCP - General Internal Medicine 06/03/20 Cash Heath III, MD [address] [address] Rheumatology 04/12/17 Jorge Aguiar MD [address] [place] [address] [place] [address] Consulting Physician Urology 11/10/20 Khoa Arias MD [address] [facility] [address] [address] Referring Physician Gastroenterology 03/20/21 documented as of this encounter
--- OUTSIDE RECORDS SUMMARY | 2024-04-29 19:22 | XMS_ITS | Encounter Summary ---
Author Organization [facility] Address [address] [facility] [address] [place] [address] Phone Care Team Providers Care Languages And Literature Instructor Name Role Phone Kumar CARRILLO MD, Cash Howard Unavailable [phone] Bhupinder Tobias MD Primary Care Provider [phone] Jorge Aguiar MD Unavailable [phone] Khoa Arias MD Unavailable [phone] Reason for Visit * Reason Onset Date Comments Recommendations 11/28/2021 Encounter Details Date Type Department Care Team (Late st Contact Info) Description 11/28/2021 Telephone [facility] Gastroenterology [address] [place] [address] Medical Office [address] [place] [address] Marjorie Diaz RN MD Recommendations Social History Tobacco Use Types Packs/Day Years [...] on file 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 Miller's recommendation to reschedule October clinic appointment to sooner and that scheduling hub will be reaching out to her for that. No answer, LVM for call back. documented in this encounter Plan of Treatment Not on file documented as of this encounter Visit Diagnoses Not on filedocumented in this encounter Care Teams Languages And Literature Instructor Relationship Specialty Start Date End Date Bhupinder Tobias MD [address] [address] PCP - General Internal Medicine 06/03/20 Cash Heath III, MD [address] [facility] [address] [place] [address] Rheumatology 04/12/17 Jorge Aguiar MD [address] [address] Consulting Physician Urology 11/10/20 Khoa Arias MD [address] [address] Referring Physician Gastroenterology 03/20/21 documented as of this encounter
--- OUTSIDE RECORDS SUMMARY | 2024-04-29 19:22 | XMS_ITS | Encounter Summary ---
Author Organization [facility] Address [address] [place] [phone] Phone Care Team Providers Care Circulation Tender Name Role Phone Kumar CARRILLO MD, Cash Howard Unavailable [phone] Bhupinder Tobias MD Primary Care Provider [phone] Jorge Aguiar MD Unavailable [phone] Khoa Arias MD Unavailable [phone] Encounter Details Date Type Department Care Team (Late st Contact Info) Description 09/11/2021 11:15 AM CDT Office Visit [facility] [address] [place] [phone] Miriam Frye PA [address] [place] [address] Psoriatic arthritis (HCC) (Primary Dx); Encounter [...] on file 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 Gender Identity Female 08/14/2022 11:32 AM CDT Sexual Orientation Straight 02/13/2023 7: 01 AM CDT documented as of this encounter Last Filed Vital Signs Vital Sign Reading Time Taken Comments Blood Pressure 142/88 09/11/2021 11:47 AM CDT Pulse 120 09/11/2021 11:47 AM CDT Temperature - - Respiratory Rate - - Oxygen Saturation 96% 09/11/2021 11:47 AM CDT Inhaled Oxygen Concentration - - Weight 86.8 kg (191 lb 6.4 oz) 09/11/2021 11:47 AM CDT Height - - Body Mass Index 30.89 08/31/2021 10:20 AM CDT documented in this encounter Ordered Prescriptions Prescription Sig Dispense Quantity Refills Last Filled Start Date End Date predniSONE (DELTASONE) 5 mg tablet 2 tabs po every day x 5d, 1 tab po every day x 5d and 1/2 tab po every day x 5 d. 40 tablet 09/11/2021 01/17/2023 documented in this encounter Progress Notes * Miriam Frye PA - 09/11/2021 11:15 AM CDT Images from the original note were not included. Subjective/Objective Patient ID: Julian Smith is a 46 y.o. female. Chief Complaint PsA HPI Hands are painful. Thinks it is also due to weather. No rashes. Has a nose ulcers. No fever or cough. due to hx of elevated lipase, still being evaluated by GI. Her orencia is scheduled tomorrow. Seeing gi at [facility] now. Pearce and egd utd and nl in past year per pt. No sob, cp, rashes, oral or nose ulcers. No infections. Having bile reflux and gastritis on recent egd with gi. Still has her gallbladder. Review of Systems Constitutional: Negative for fatigue [...] dry. Psychiatric: Normal mood. Vitals reviewed. CDAI: 31 Labs Lab Results Component Value Date WBC 11.3 (H) 08/10/2021 HGB 13.6 08/10/2021 HCT 42.3 08/10/2021 MCV 90.4 08/10/2021 Lab Results Component Value Date GLUCOSE 84 08/10/2021 CALCIUM 9.1 08/10/2021 SODIUM 137 08/10/2021 POTASSIUM 3.9 08/10/2021 CO2 29 08/10/2021 CHLORIDE 102 08/10/2021 BUNSER 11 08/10/2021 CREATININE 0.91 08/10/2021 Lab Results Component Value Date ALT 15 08/10/2021 AST 11 08/10/2021 ALKPHOS 76 08/10/2021 BILITOT 0.5 08/10/2021 Lab Results Component Value Date SEDRATE 6 08/10/2021 Lab Results Component Value Date CRP 19.3 (H) 08/10/2021 Assessment/Plan Diagnoses and all orders for this visit: Psoriatic arthritis (HCC) (Primary) Assessment & Plan: High cdai. Pt can restart orencia but will hold off restarting arava due to hx of elevated lipase, still being evaluated by GI. Her orencia is scheduled tomorrow. Seeing gi at [facility] now. Pearce and egd utd and nl in past year per pt. Due to burden of dz will give her a short course of oral prednisone. Discussed risks and se of systemic steroids. Past serologies: [facility] panel 08/2019---labs reveal positive anti-PAY STATION COLLECTOR antibody which is likely a false positive [...] phase); Future - Erythrocyte sedimentation rate; Future Encounter for long-term (current) use of [...] showed osteoporosis [facility] 08/2019---[facility] labs reveal positive anti-PAY STATION COLLECTOR antibody which is likely a false positive due tonegative ASHLEY. Her father had psoriasis, pt changed from ra to PsA on 03/25/2020. ?? Orders: - CBC with auto differential; Future - Comprehensive metabolic panel; Future - CRP (acute phase); Future - Erythrocyte sedimentation rate; Future Other orders - predniSONE (DELTASONE) 5 mg tablet; 2 tabs po every day x 5d, 1 tab po every day x 5d and 1/2 tabpo every day x 5 d. Cosigned by Cash Heath III, MD at 09/11/2021 5:05 PM CDT documented in this encounter Miscellaneous Notes * Assessment & Plan Note - Miriam Frye PA - 09/11/2021 11:04 AM CDTAssociated Problem(s): Psoriatic arthritis (HCC) Images from the original note were not included. High cdai. Pt can restart orencia but will hold off restarting arava due to hx of elevated lipase, still being evaluated by GI. Her orencia is scheduled tomorrow. Seeing gi at [facility] now. Pearce and egd utd and nl in past year per pt. Due to burden of dz will give her a short course of oral prednisone. Discussed risks and se of systemic steroids. Past serologies: [facility] panel 08/2019---labs reveal positive anti-PAY STATION COLLECTOR antibody which is likely a false positive due tonegative ASHLEY. ?? RF neg but has a possible family hx of psoriatic arthritis (father) so if she develops psoriasis diagnosis will change to psoriatic arthritis. Rt hand US 09/2019 showed: ??F/u 1 month. * Assessment & Plan Note - Miriam Frye PA - 09/11/2021 11:04 AM CDTAssociated Problem(s): Encounter for long-term (current) use [...] showed osteoporosis [facility] 08/2019---[facility] labs reveal positive anti-PAY STATION COLLECTOR antibody which is likely a false positive due tonegative ASHLEY. Her father had psoriasis, pt changed from ra to PsA on 03/25/2020. ?? documented in this encounter Plan of Treatment Not on file documented as of this encounter Procedures Procedure Name Priority Date/Time Associated Diagnosis Comments CBC WITH AUTO DIFFERENTIAL Routine 09/11/2021 11:38 AM CDT Psoriatic arthritis (HCC) Encounter for long-term (current) use of medications ERYTHROCYTE SEDIMENTATION RATE Routine 09/11/2021 11:38 AM CDT Psoriatic arthritis ([facility]) Encounter for long-term (current) use of medications CRP (ACUTE PHASE) Routine 09/11/2021 11: 38 AM CDT Psoriatic arthritis ([facility]) Encounter for long-term (current) use of medications COMPREHENSIVE METABOLIC PANEL Routine 09/11/2021 11:38 AM CDT Psoriatic arthritis (HCC) Encounter for long-term (current) use of medications documented in this encounter Results * Erythrocyte sedimentation rate (09/11/2021 11:38 AM CDT) Erythrocyte sedimentation rate 6 < OR = 20 mm/h [facility] Blood specimen (specimen) 09/11/2021 11:38 AM CDT 09/11/2021 11:39 AM CDT us Miriam VALLE LAB BLOOD ORDERAB LES Final Result [facility] [address] [id number] * (ABNORMAL) CRP (acute phase) (09/11/2021 11:38 AM CDT) C-RP 11.0(H) <8.0 mg/L [facility] Blood specimen (specimen) 09/11/2021 11:38 AM CDT 09/11/2021 11:39 AM CDT us Miriam VALLE LAB BLOOD ORDERAB LES Final Result [facility] [address] [id number] * Comprehensive metabolic panel (09/11/2021 11:38 AM CDT) Glucose 86 65 - 99 mg/dL [facility] Comment: ? Fasting reference interval BUN 13 7 - 25 mg/dL [facility] Creatinine 0.89 0.50 - 1.10 mg/dL [facility] eGFR NON-AFR. FIJIAN 77 > OR = 60 mL/min/1. 73m2 [facility] EGFR 89 > OR = 60 mL/min/1. 73m2 [facility] BUN/creat ratio NOT APPLICABLE 6 - 22 (calc) [facility] Sodium 140 135 - 146 mmol/L [facility] Potassium, pl 4.1 3.5 - 5.3 mmol/L [facility] Chloride 104 98 - 110 mmol/L [facility] CO2 26 20 - 32 mmol/L [facility] Calcium 9.0 8.6 - 10.2 mg/dL [facility] Protein, sr 6.8 6.1 - 8.1 g/dL [facility] Albumin 4.0 3.6 - 5.1 g/dL [facility] GLOBULIN 2.8 1.9 - 3.7 g/dL (calc) [facility] Alb/glob ratio 1.4 1.0 - 2.5 (calc) [facility] Bilirubin, total 0.3 0.2 - 1.2 mg/dL [facility] Alk phos 79 31 - 125 U/L [facility] AST 11 10 - 35 U/L [facility] ALT (SGPT) 15 6 - 29 U/L [facility] Blood specimen (specimen) 09/11/2021 11:38 AM CDT 09/11/2021 11:39 AM CDT us Miriam VALLE LAB BLOOD ORDERAB LES Final Result [facility] [address] [address] * (ABNORMAL) CBC with auto differential (09/11/2021 11:38 AM CDT) WBC 7.0 3.8 - 10.8 Thousand/u L [facility] RBC, POC 4.70 3.80 - 5.10 Million/uL [facility] Hgb 13.6 11.7 - 15.5 g/dL [facility] Hct 42.7 35.0 - 45.0 % [facility] MCV 90.9 80.0 - 100.0 fL [facility] MCH 28.9 27.0 - 33.0 pg [facility] MCHC 31.9(L) 32.0 - 36.0 g/dL [facility] Rdw 12.8 11.0 - 15.0 % [facility] Platelets 298 140 - 400 Thousand/u L [facility] MPV 9.4 7.5 - 12.5 fL [facility] Neutrophils, abs 4,837 1,500 - 7,800 cells/uL [facility] Lymphocytes, abs 1,309 850 - 3,900 cells/uL [facility] Monocyte abs 441 200 - 950 cells/uL [facility] Eosinophils, abs 301 15 - 500 cells/uL [facility] Basophils, abs 112 0 - 200 cells/uL [facility] Neutrophils 69.1 % [facility] Lymphocyte pct 18.7 % [facility] Monocytes 6.3 % [facility] Eosinophils 4.3 % [facility] Basophils 1.6 % [facility] Blood specimen (specimen) 09/11/2021 11:38 AM CDT 09/11/2021 11:39 AM CDT Miriam VALLE LAB BLOOD ORDERAB LES Final Result [facility] [address] [place] [address] documented in this encounter Visit Diagnoses Diagnosis Psoriatic arthritis (HCC)- Primary Psoriatic arthropathy Encounter for long-term (current) use of medications Encounter for long-term (current) use of other medications documented in this encounter Discontinued Medications Medication Sig Discontinue Reason Start Date End Da te leflunomide (ARAVA) 20 mg tabletIndications:Psoria tic Arthritis Take 1 tablet (20 mg total) by mouth daily Duplicate order 05/05/2021 09/11/2021 documented as of this encounter Care Teams Circulation Tender Relationship Specialty Start Date End Date Bhupinder Tobias MD [address] [place] [id number] PCP - General Internal Medicine 06/03/20 Cash Heath III, MD [address] [address] Rheumatology 04/12/17 Jorge Aguiar MD [address] [place] [address] Consulting Physician Urology 11/10/20 Khoa Arias MD [address] [address] Referring Physician Gastroenterology 03/20/21 documented as of this encounter
--- OUTSIDE RECORDS SUMMARY | 2024-04-29 19:22 | XMS_ITS | Encounter Summary ---
Author Organization [facility] Healthcare Address [address] [place] [address] Care Team Providers Care Finishing Powder Press Operator Name Role Phone Kumar CARRILLO MD, Cash Howard Unavailable [phone] Bhupinder Tobias MD Primary Care Provider [phone] Jorge Aguiar MD Unavailable [phone] Khoa Arias MD Unavailable [phone] Encounter Details Date Type Department Care Team (Late st Contact Info) Description 01/03/2023 Telephone 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 documented in this encounter Plan of Treatment Not on file documented as of this encounter Visit Diagnoses Not on filedocumented in this encounter Care Teams Finishing Powder Press Operator Relationship Specialty Start Date End Date Bhupinder Tobias MD [address] [place] [address] PCP - General Internal Medicine 06/03/20 Cash Heath III, MD [address] [facility] [address] [place] [address] Rheumatology 04/12/17 Jorge Aguiar MD [address] [place] [address] Consulting Physician Urology 11/10/20 Khoa Arias MD [address] [place] [address] Referring Physician Gastroenterology 03/20/21 documented as of this encounter
--- OUTSIDE RECORDS SUMMARY | 2024-04-29 19:22 | XMS_ITS | Encounter Summary ---
Author Organization [facility] Address [address] [place] [address] Care Team Providers Care Assistant Public Defender Name Role Phone Isaiah Quiros MD Primary Care Provider [phone] Reason for Visit * Reason Comments Establish Care irregular bowels wit h bleeding heartburn abdominal pain hx diverticulitis Encounter Details Date Type Department Care Team (Latest Contact Info) Description 04/16/2018 7:30 AM CURRICULUM DEVELOPMENT MANAGER Office Visit [facility] [place] A [address] [place] [address] Alex Mahajan MD [address] [facility] [address] [place] [address] 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 syndrome, unspecified type (Primary Dx); Gastroesophageal reflux disease, esophagitis presence not specified Social History Tobacco Use Types Packs/Day Years Used Date Smoking Tobacco: Every Day E-Cigarette/M ist Inhalation Device Tobacco Cessation:Ready to Q uit: No Alcohol Use Standard Drinks/Week Comments Yes 0 (1 standard drink = 0.6 oz pur e alcohol) Sex and Gender Information Value Date Recorded Sex Assigned at Not on file Gender Identity Not on file Sexual Orientation Not on file documented as of this encounter Last Filed Vital Signs Vital Sign Reading Time Taken Comments Blood Pressure 137/81 04/16/2018 7:51 AM CURRICULUM DEVELOPMENT MANAGER Pulse 103 04/16/2018 7:51 AM CURRICULUM DEVELOPMENT MANAGER Temperature - - Respiratory Rate - - Oxygen Saturation - - Inhaled Oxygen Concentration - - Weight 92.1 kg (203 lb) 04/16/2018 7:51 AM CURRICULUM DEVELOPMENT MANAGER Height 167.6 cm (5' 6 ) 04/16/2018 7:51 AM CURRICULUM DEVELOPMENT MANAGER Body Mass Index 32.77 04/16/2018 7:51 AM CURRICULUM DEVELOPMENT MANAGER documented in this encounter Progress Notes * Alex Mahajan MD - 04/16/2018 8:33 AM CST HISTORY OF PRESENT ILLNESS Madalyn Smith, a 42 y.o. female presents with a Chief Complaint of Establish Care (irregular bowels with bleeding heartburn abdominal pain hx diverticulitis) Subjective HPI Patient reports that she has had ongoing GI symptoms for the past 2 years. History of chronic constipation with intermittent diarrhea. Diarrhea seems to happen mostly after she takes medications for constipation. Takes Linzess 145 mcg which was started recently, but she used Dulcolax, MiraLAX and senna in addition to Linzess which led to diarrhea for which she took 1 dose of Imodium yesterday. Stopped Linzess few days ago. Used to take Protonix for acid reflux symptoms, stopped a few months agobut did not restart. Acid reflux symptoms were well controlled when she was on Protonix. History ofintermittent generalized abdominal pain, achy type of pain, moderate in intensity, happens in an episodic fashion every several weeks without any specific aggravating or relieving factors. Occasionalsmall streaks of bright red blood mixed with stool. Underwent EGD and colonoscopy about a year ago,records are not available for review at this time. Past Medical History: Diagnosis Date ??? GI problem Past Surgical History: Procedure Laterality Date ??? PT DENIES RELEVANT SURGICAL HISTORY No Known Allergies Current Outpatient Prescriptions: ??? raNITIdine (ZANTAC) 150 mg tablet, Take [...] tablet, Take 300 mg by mouth daily director sports., Disp: , Rfl: ??? pregabalin (LYRICA) 100 mg Capsule, Take 100 mg by mouth., Disp: , Rfl: ??? pantoprazole (PROTONIX) 40 mg Tablet, Delayed Release (E.C.), Take 1 Tablet (40 mg) by mouth daily Take 30 minutes before breakfast., Disp: 30 Tablet, Rfl: 6 Family History Problem Relation Age of Onset [...] History Narrative ??? No narrative on file REVIEW OF SYSTEMS Review of Systems Constitutional: [...] is not nervous/anxious. Objective PHYSICAL EXAM BP 137/81 Pulse (!) 103 Ht 5' 6 (1.676 m) Wt 92.1 kg (203 lb) BMI 32.77 kg/m?? Physical Exam Constitutional: She is oriented [...] and PLAN: ICD-10-CM ICD-9-CM 1. 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 syndrome, unspecified type K58.9 564.1 2. Gastroesophageal reflux disease, esophagitis presence not specified K21.9 530.81 Restart pantoprazole 40 mg p.o. daily to be taken 30 minutes before breakfast. Restart Linzess 145 mcg p.o. daily. Discussed about Irritable Bowel Syndrome, triggers, trial of avoidance of triggers. Avoid IBS triggers such as dairy, caffeine, carbonated beverages, salads and raw vegetables, artificial sweeteners, fatty foods, large portions, chewing gum and chocolate. 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 Follow-up in 4-6 weeks if symptoms persist. ICULUM DEVELOPMENT MANAGER documented in this encounter Plan of Treatment Not on file documented as of this encounter Visit Diagnoses Diagnosis 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 syndrome, unspecified type- Primary Gastroesophageal reflux disease, esophagitis presence not specified documented in this encounter Care Teams Assistant Public Defender Relationship Specialty [place] [address] [place] [phone] PCP - General Internal Medicine 04/16/18 documented as of this encounter
--- OUTSIDE RECORDS SUMMARY | 2024-04-29 19:22 | XMS_ITS | Referral Summary ---
Author Organization [id number] Address [address] [place] [address] Phone Care Team Providers Care Bilingual Executive Assistant Name Role Phone Kumar CARRILLO MD, John J. Unavailable [phone] Bhupinder Tobias MD Primary Care Provider [phone] Jorge Aguiar MD Unavailable [phone] Khoa Arias MD Unavailable [phone] Allergies No known active allergies Medications SUMAtriptan (IMITREX) 50 mg tabletIndications: Migraine TK 1 T PO AOS OF MIGRAINE. MAY REPEAT AFTER 2 H IF MERCADO RETURNS. MAXIMUM 4 TS IN 24 H 0 07/10/19 17 Active buPROPion XL (WELLBUTRIN XL) 300 mg 24 hr tablet Take 300 mg by mouth Active dicyclomine (BENTYL) 10 mg capsule Take 10 mg by mouth every 6 hours as needed 07/24/[address] (CYMBALTA) 60 mg capsule 60 mg daily Active pantoprazole DR (PROTONIX) 40 mg EC tablet TAKE 1 TABLET(40 MG) BY MOUTH DAILY 30 MINUTES BEFORE BREAKFAST 12/21/19 16 Active traZODone (DESYREL) 100 mg tablet Take 100 mg by mouth Active potassium citrate ER (UROCIT-K) 15 mEq tablet extended release TK 1 T PO BID 6 12/20/19 19 Active tamsulosin (FLOMAX) 0.4 mg extended release capsuleIndications :Urolithiasis Take 1 capsule (0.4 mg total) by mouth daily 30 capsule 07/01/19 22 Active HYDROcodone-acetam inophen (NORCO) 5-325 mg per tabletIndications: Pain Take 1 tablet by mouth every 4 (four) hours as needed for pain Do not exceed 8 tablets/day. 10 tablet 07/01/19 22 Active Additional Information Patient not taking.Reported on 11/29/2021 ALPRAZolam (XANAX) 1 mg tablet Take 1 mg by mouth 3 (three) times a day 08/04/19 22 Active propranoloL (INDERAL) 10 mg tablet Take 10 mg by mouth daily 08/04/19 22 Active Trulance 3 mg tablet Take 1 tablet by mouth daily 11/02/19 22 Active gabapentin (NEURONTIN) 100 mg capsule Take 1 capsule (100 mg total) by mouth 3 (three) times a day 180 capsule 11 11/30/19 22 Active ondansetron ODT (ZOFRAN-ODT) 8 mg disintegrating tablet DISSOLVE 1 TABLET(8 MG) ON THE TONGUE EVERY 8 HOURS NEEDED FOR NAUSEA OR VOMITING 60 tablet 04/25/19 23 Active triamcinolone (KENALOG) 0.1 % paste APPLY TO NASAL PASSAGE TWICE DAILY NEEDED 15 g 04/25/19 23 Active sucralfate (CARAFATE) 1 gram tablet Take 1 tablet (1 g total) by mouth 4 (four) times a day 120 tablet 08/23/19 23 Active azithromycin (ZITHROMAX) 250 mg tablet Take 1 tablet (250 mg total) by mouth daily Take first 2 tablets together, then 1 every day until finished. 6 tablet 01/14/20 23 Active ondansetron ODT (ZOFRAN-ODT) 4 mg disintegrating tablet Take 1 tablet (4 mg total) by mouth every 8 (eight) hours as needed for nausea or vomiting 20 tablet 01/14/20 23 Active dicyclomine (BENTYL) 20 mg tablet Take 1 tablet (20 mg total) by mouth 2 (two) times a day 20 tablet 01/14/20 23 Active fluconazole (DIFLUCAN) 150 mg tablet Take 1 tablet orally as directed. 1 tablet 01/14/20 23 Active metoclopramide (REGLAN) 5 mg tablet Take 1 tablet (5 mg total) by mouth daily 12/26/19 23 Active Active Problems Problem Noted Date Diagnosed Date Hiatal hernia with GERD 02/13/2023 Diverticulitis large intesti ne w/o perforation or abscess w/o bleeding 08/14/2022 Abnormal serum level of lipase 12/11/2021 Assessment & Plan (12/11/2021 1:09 PM CDT): To f/u with gi. 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 syndrome with constipation 08/31 Acute pancreatitis 08/30/2021 Overview (08/30/2021): Added automatically from request for surgery [id number] Abdominal pain 03/31/2021 Assessment & Plan (06/28/2021 10:08 AM VEHICLE INSURANCE AGENT): Recently dx with mild pancreatitis. Needs lipase/amylase rechecked. Still has some upper abd pain. Advised pt to f/u with GI also. Assessment & Plan (06/19/2021 8:52 AM VEHICLE INSURANCE AGENT): Had abd pain early this month, check amyl/lip and ua. Pain has resolved. Assessment & Plan (05/05/2021 10:13 PM VEHICLE INSURANCE AGENT): Having abd pain, bloating, constipation. On meds for IBS and also using suppositories to have BM. Incidental findings of mesenteric fat stranding (adenitis or panniculitis) on abd CT. Awaiting further eval by Dr. Arias. Assessment & Plan (03/31/2021 8:44 AM VEHICLE INSURANCE AGENT): Elevated lipase. Imuran stopped. Pt advised to f/u with gi. Recheck labs today. Trochanteric bursitis of right hip 01/22/2020 Assessment & Plan (01/22/2020 12:58 PM CDT): Schedule rt hip bursa steroid inj under US. Hip xray nl. Flu vaccine need 01/22/2020 Chronic pain of both knees 01/22/2020 Assessment & Plan (01/22/2020 12:57 PM CDT): bilat knees hurt but rt is worse. xrays were nl. Will start PT and if she does not improve will mri rt knee next. Trochanteric bursitis of left hip 01/22/2020 Assessment & Plan (01/22/2020 12:56 PM CDT): If rt hip bursa inj helps pt to schedule the lt hip bursa steroid inj under US. Hip xray nl. Primary osteoarthritis of both knees 10/19/2019 Assessment & Plan (02/19/2020 11:36 AM CDT): Wants to start PT for bilat knee oa. Gave pt 2nd referral. Assessment & Plan (10/19/2019 9:41 AM CDT): Has hx of knee OA. Has seen ortho for this in past. Will try to get her pennsaid gel and if not approved, then voltaren gel. Frequent infections 04/23/2019 Assessment & Plan (03/24/2020 7:29 AM VEHICLE INSURANCE AGENT): Normal serum immunoglobulins. Assessment & Plan (01/21/2020 1:08 PM CDT): Normal serum immunoglobulins. Assessment & Plan (01/07/2020 12:31 PM CDT): Normal serum immunoglobulins. Assessment & Plan (12/23/2019 3:41 PM CDT): Normal serum immunoglobulins. Assessment & Plan (12/23/2019 8:37 AM CDT): Normal serum immunoglobulins. Assessment & Plan (09/10/2019 7:30 AM CDT): Normal serum immunoglobulins. Assessment & Plan (07/08/2019 8:28 AM CDT): Normal serum immunoglobulins. Assessment & Plan (04/23/2019 1:46 PM VEHICLE INSURANCE AGENT): Check serum immunoglobulins. Osteoporosis without current pathological fractu re 09/18/2018 Assessment & Plan (08/10/2021 8:09 AM CDT): bds checked by pcp in past, is taking ca and vit d and pcp checked vit D and PTH per pt was wnl. Her pcp started her on alendronate 70mg po qweek. Taking ca + vit d 1200mg qd. Assessment & Plan (06/15/2021 10:46 AM VEHICLE INSURANCE AGENT): bds checked by pcp in past, is taking ca and vit d and pcp checked vit D and PTH per pt was wnl. Her pcp started her on alendronate 70mg po qweek. Taking ca + vit d 1200mg qd. Assessment & Plan (06/09/2021 8:30 AM VEHICLE INSURANCE AGENT): bds checked by pcp in past, is taking ca and vit d and pcp checked vit D and PTH per pt was wnl. Her pcp started her on alendronate 70mg po qweek. Taking ca + vit d 1200mg qd. Assessment & Plan (05/04/2021 8:19 AM VEHICLE INSURANCE AGENT): bds checked by pcp in past, is taking ca and vit d and pcp checked vit D and PTH per pt was wnl. Her pcp started her on alendronate 70mg po qweek. Taking ca + vit d 1200mg qd. Assessment & Plan (02/06/2021 8:29 AM CDT): bds checked by pcp in past, is taking ca and vit d and pcp checked vit D and PTH per pt was wnl. Her pcp started her on alendronate 70mg po qweek. Taking ca + vit d 1200mg qd. Assessment & Plan (11/07/2020 11:28 AM CDT): bds checked by pcp in past, is taking ca and vit d and pcp checked vit D and PTH per pt was wnl. Her pcp started her on alendronate 70mg po qweek. Taking ca + vit d 1200mg qd. Assessment & Plan (08/08/2020 8:17 AM CDT): bds checked by pcp in past, is taking ca and vit d and pcp checked vit D and PTH per pt was wnl. Her pcp started her on alendronate 70mg po qweek. Taking ca + vit d 1200mg qd. Assessment & Plan (07/18/2020 8:24 AM CDT): bds checked by pcp in past, is taking ca and vit d and pcp checked vit D and PTH per pt was wnl. Her pcp started her on alendronate 70mg po qweek. Taking ca + vit d 1200mg qd. Assessment & Plan (06/03/2020 7:38 AM VEHICLE INSURANCE AGENT): bds checked by pcp in past, is taking ca and vit d and pcp checked vit D and PTH per pt was wnl. Her pcp started her on alendronate 70mg po qweek. Taking ca + vit d 1200mg qd. Assessment & Plan (03/25/2020 8:34 AM VEHICLE INSURANCE AGENT): bds checked by pcp in past, is taking ca and vit d and pcp checked vit D and PTH per pt was wnl. Her pcp started her on alendronate 70mg po qweek. Taking ca + vit d 1200mg qd. Assessment & Plan (03/24/2020 7:29 AM VEHICLE INSURANCE AGENT): bds checked by pcp in past, is taking ca and vit d and pcp checked vit D and PTH per pt was wnl. Her pcp started her on alendronate 70mg po qweek. Taking ca + vit d 1200mg qd. Assessment & Plan (01/21/2020 1:08 PM CDT): bds checked by pcp in past, is taking ca and vit d and pcp checked vit D and PTH per pt was wnl. Her pcp started her on alendronate 70mg po qweek. Taking ca + vit d 1200mg qd. Assessment & Plan (01/07/2020 12:31 PM CDT): bds checked by pcp in past, is taking ca and vit d and pcp checked vit D and PTH per pt was wnl. Her pcp started her on alendronate 70mg po qweek. Taking ca + vit d 1200mg qd. Assessment & Plan (12/23/2019 3:41 PM CDT): BDS checked by pcp in past. PCP checked vit D and PTH per pt was wnl. Her pcp started her on alendronate 70mg po qweek. Taking ca + vit d 1200mg qd. Assessment & Plan (12/23/2019 8:37 AM CDT): bds checked by pcp in past, is taking ca and vit d and pcp checked vit D and PTH per pt was wnl. Her pcp started her on alendronate 70mg po qweek. Taking ca + vit d 1200mg qd. Assessment & Plan (10/19/2019 8:06 AM CDT): bds checked by pcp in past, is taking ca and vit d and pcp checked vit D and PTH per pt was wnl. Her pcp started her on alendronate 70mg po qweek. Taking ca + vit d 1200mg qd. Assessment & Plan (09/10/2019 7:30 AM CDT): bds checked by pcp in past, is taking ca and vit d and pcp checked vit D and PTH per pt was wnl. Her pcp started her on alendronate 70mg po qweek. Taking ca + vit d 1200mg qd. Assessment & Plan (07/08/2019 8:27 AM CDT): bds checked by pcp in past, is taking ca and vit d and pcp checked vit D and PTH per pt was wnl. Her pcp started her on alendronate 70mg po qweek. Taking ca + vit d 1200mg qd. Assessment & Plan (04/20/2019 4:56 PM VEHICLE INSURANCE AGENT): bds checked by pcp in past, is taking ca and vit d and pcp checked vit D and PTH per pt was wnl. Her pcp started her on alendronate 70mg po qweek. Taking ca + vit d 1200mg qd. Assessment & Plan (10/31/2018 7:38 AM CDT): bds checked by pcp in past, is taking ca and vit d and pcp checked vit D and PTH per pt was wnl. Her pcp started her on alendronate 70mg po qweek. Taking ca + vit d 1200mg qd. 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 Assessment & Plan (08/08/2020 8:17 AM CDT): Was advised in past to get chest CT to r/o aortic aneurysm, to discuss with pcp. Assessment & Plan (07/18/2020 8:25 AM CDT): Was advised in past to get chest CT to r/o aortic aneurysm, to discuss with pcp. Assessment & Plan (06/03/2020 7:37 AM VEHICLE INSURANCE AGENT): Was advised in past to get chest CT to r/o aortic aneurysm, to discuss with pcp. Assessment & Plan (03/25/2020 8:33 AM VEHICLE INSURANCE AGENT): Was advised in past to get chest CT to r/o aortic aneurysm, to discuss with pcp. Assessment & Plan (03/24/2020 7:29 AM VEHICLE INSURANCE AGENT): Was advised in past to get chest CT to r/o aortic aneurysm, to discuss with pcp. Assessment & Plan (01/21/2020 1:08 PM CDT): Was advised in past to get chest CT to r/o aortic aneurysm, to discuss with pcp. Assessment & Plan (01/07/2020 12:30 PM CDT): Was advised in past to get chest CT to r/o aortic aneurysm, to discuss with pcp. Assessment & Plan (12/23/2019 8:38 AM CDT): Was advised at last visit to get chest CT to r/o aortic aneurysm, to discuss with pcp. Assessment & Plan (09/10/2019 7:31 AM CDT): Was advised at last visit to get chest CT to r/o aortic aneurysm, to discuss with pcp. Assessment & Plan (07/08/2019 8:28 AM CDT): Was advised at last visit to get chest CT to r/o aortic aneurysm, to discuss with pcp. Assessment & Plan (04/20/2019 4:57 PM VEHICLE INSURANCE AGENT): Advised to get chest CT to r/o aortic aneurysm, to discuss with pcp. Assessment & Plan (10/31/2018 7:38 AM CDT): Advised to get chest CT to r/o aortic aneurysm, to discuss with pcp. Encounter for long-term (current) use of medicat ions 01/31/2017 Assessment & Plan (05/28/2022 8:07 AM VEHICLE INSURANCE AGENT): Quant gold neg 12/2019 Hep B and C neg 2015 and 01/2020 HLA B27 negative 12/2019 TPMT nl 17 Weight loss with imuran, stopped it 01/2017 azathiprine stopped 03/31/21 due to elevated lipase, changed to arava. Mtx stopped due to side effects 2016 Failed Humira Failed Enbrel Failed Stelara Plaquenil failure Failed Stelara, stopped 11/07/2020 Diarrhea with Cosentyx. Failed Orencia GI upset with Cosentyx, stopped 05/2020 Imuran caused weight loss 2016, TPMT wnl at 17 in 2016 HLA B27 neg 12/2019 TPMT wnl 06/2016 BDS done by pcp 2018 and it showed osteoporosis [facility] 08/2019---[facility] labs reveal positive anti-DIGITAL COMMENTATOR antibody which is likely a false positive due to negative ASHLEY. Her father had psoriasis, pt changed from ra to PsA on 03/25/2020. ?? Assessment & Plan (02/26/2022 8:16 AM VEHICLE INSURANCE AGENT): Quant gold neg 12/2019 Hep B and [...] showed osteoporosis [facility] 08/2019---[facility] labs reveal positive anti-DIGITAL COMMENTATOR antibody which is likely a false positive due to negative ASHLEY. Her father had psoriasis, pt changed from ra to PsA on 03/25/2020. ?? Assessment & Plan (12/11/2021 1:10 PM CDT): Quant gold neg 12/2019 Hep B and [...] showed osteoporosis [facility] 08/2019---[facility] labs reveal positive anti-DIGITAL COMMENTATOR antibody which is likely a false positive due to negative ASHLEY. Her father had psoriasis, pt changed from ra to PsA on 03/25/2020. ?? Assessment & Plan (12/08/2021 3:15 PM CDT): Quant gold neg 12/2019 Hep B and [...] TPMT wnl 06/2016 BDS done by pcp 2019 and it showed osteoporosis [facility] 08/2019---[facility] reveal positive anti-DIGITAL COMMENTATOR antibody which is likely a false positive due to negative ASHLEY. Her father had psoriasis, pt changed from ra to PsA on 03/25/2020. ?? Assessment & Plan (09/11/2021 11:04 AM CDT): Quant gold neg 12/2019 Hep B and [...] TPMT wnl 06/2016 BDS done by pcp 2019 and it showed osteoporosis [facility] 08/2019---[facility] reveal positive anti-DIGITAL COMMENTATOR antibody which is likely a false positive due to negative ASHLEY. Her father had psoriasis, pt changed from ra to PsA on 03/25/2020. ?? Assessment & Plan (08/10/2021 8:09 AM CDT): Quant gold neg 12/2019 Hep B and C neg 2015 and 01/2020 HLA B27 negative 12/2019 TPMT nl 17 Weight loss with imuran, stopped it 01/2017 azathiprine stopped 03/31/21 due to elevated lipase, changed to arava. Mtx stopped due to side effects 2017 Failed Humira Failed Stelara Plaquenil failure Failed Stelara, stopped 11/07/2020 Diarrhea with Cosentyx. Failed Orencia GI upset with Cosentyx, stopped 05/2020 Imuran caused weight loss 2016, TPMT wnl at 17 in 2016 HLA B27 neg 12/2019 Failed Enbrel and humira TPMT wnl 06/2016 BDS done by pcp 2019 and it showed osteoporosis [facility] 08/2019---[facility] reveal positive anti-DIGITAL COMMENTATOR antibody which is likely a false positive due to negative ASHLEY. Her father had psoriasis, pt changed from ra to PsA on 03/25/2020. ?? Assessment & Plan (06/28/2021 8:44 AM VEHICLE INSURANCE AGENT): Quant gold neg 12/2019 Hep B and [...] TPMT wnl 06/2016 BDS done by pcp 2019 and it showed osteoporosis [facility] 08/2019---[facility] reveal positive anti-DIGITAL COMMENTATOR antibody which is likely a false positive due to negative ASHLEY. Her father had psoriasis, pt changed from ra to PsA on 03/25/2020. ?? Assessment & Plan (06/15/2021 10:44 AM VEHICLE INSURANCE AGENT): Quant gold neg 12/2019 Hep B and [...] TPMT wnl 06/2016 BDS done by pcp 2019 and it showed osteoporosis [facility] 08/2019---[facility] reveal positive anti-DIGITAL COMMENTATOR antibody which is likely a false positive due to negative ASHLEY. Her father had psoriasis, pt changed from ra to PsA on 03/25/2020. ?? Assessment & Plan (06/09/2021 10:15 AM VEHICLE INSURANCE AGENT): Quant gold neg 12/2019 Hep B and C neg 2015 and 01/2020 HLA B27 negative 12/2019 TPMT nl 17 Weight loss with imuran, stopped it 01/2017 azathiprine stopped 03/31/21 due to elevated lipase, changed to arava. Mtx stopped due to side effects 2017 Failed Humira Failed Stelara Plaquenil failure Failed Stelara, stopped 11/07/2020 Diarrhea with Cosentyx. Failed Orencia GI upset with Cosentyx, stopped 05/2020 Imuran caused weight loss 2016, TPMT wnl at 17 in 2016 HLA B27 neg 12/2019 Failed Enbrel and humira TPMT wnl 06/2016 BDS done by pcp 2019 and it showed osteoporosis [facility] 08/2019---[facility] reveal positive anti-DIGITAL COMMENTATOR antibody which is likely a false positive due to negative ASHLEY. Her father had psoriasis, pt changed from ra to PsA on 03/25/2020. ?? Assessment & Plan (06/09/2021 8:29 AM VEHICLE INSURANCE AGENT): Quant gold neg 12/2019 Hep B and [...] TPMT wnl 06/2016 BDS done by pcp 2019 and it showed osteoporosis [facility] 08/2019---[facility] reveal positive anti-DIGITAL COMMENTATOR antibody which is likely a false positive due to negative ASHLEY. Her father had psoriasis, pt changed from ra to PsA on 03/25/2020. ?? Assessment & Plan (05/04/2021 8:19 AM VEHICLE INSURANCE AGENT): Quant gold neg 12/2019 Hep B and [...] TPMT wnl 06/2016 BDS done by pcp 2019 and it showed osteoporosis [facility] 08/2019---[facility] reveal positive anti-DIGITAL COMMENTATOR antibody which is likely a false positive due to negative ASHLEY. Her father had psoriasis, pt changed from ra to PsA on 03/25/2020. ?? Assessment & Plan (03/31/2021 9:20 AM VEHICLE INSURANCE AGENT): Quant gold neg 12/2019 Hep B and [...] TPMT wnl 06/2016 BDS done by pcp 2019 and it showed osteoporosis [facility] 08/2019---[facility] reveal positive anti-DIGITAL COMMENTATOR antibody which is likely a false positive due to negative ASHLEY. Her father had psoriasis, pt changed from ra to PsA on 03/25/2020. ?? Assessment & Plan (02/06/2021 8:31 AM CDT): Quant gold neg 12/2019 Hep B and C neg 2015 and 01/2020 HLA B27 negative 12/2019 TPMT nl 17 Weight loss with imuran, stopped it 01/2017 Mtx stopped due to side effects 2016 [...] showed osteoporosis [facility] 08/2019---[facility] reveal positive anti-DIGITAL COMMENTATOR antibody which is likely a false positive due to negative ASHLEY. Her father had psoriasis, pt changed from ra to PsA on 03/25/2020. ?? Assessment & Plan (11/07/2020 3:44 PM CDT): Quant gold neg 12/2019 Hep B and C neg 2015 and 01/2020 HLA B27 negative 12/2019 TPMT nl 17 Weight loss with imuran, stopped it 01/2017 Mtx stopped due to side effects 2016 Failed Humira Plaquenil failure Failed Stelara, stopped 11/07/2020 Diarrhea with Cosentyx. Failed Orencia GI upset with Cosentyx, stopped 05/2020 Imuran caused weight loss 2016, TPMT wnl at 17 in 2016 HLA B27 neg 12/2019 Failed Enbrel and humira TPMT wnl 06/2016 BDS done by pcp 2018 and it showed osteoporosis [facility] 08/2019---[facility] reveal positive anti-DIGITAL COMMENTATOR antibody which is likely a false positive due to negative ASHLEY. Her father had psoriasis, pt changed from ra to PsA on 03/25/2020. ?? Assessment & Plan (08/08/2020 8:17 AM CDT): Quant gold neg 12/2019 Hep B and C neg 2015 and 01/2020 HLA B27 negative 12/2019 TPMT nl 17 Weight loss with imuran, stopped it 01/2017 Mtx stopped due to side effects 2017 Failed Humira Plaquenil failure Diarrhea with Cosentyx. Failed Orencia GI upset with Cosentyx, stopped 05/2020 Imuran caused weight loss 2016, TPMT wnl at 17 in 2016 HLA B27 neg 12/2019 Failed Enbrel and humira TPMT wnl 06/2016 BDS done by pcp 2019 and it showed osteoporosis [facility] 08/2019---[facility] reveal positive anti-DIGITAL COMMENTATOR antibody which is likely a false positive due to negative ASHLEY. Her father had psoriasis, pt changed from ra to PsA on 03/25/2020. ?? Assessment & Plan (07/18/2020 8:27 AM CDT): Quant gold neg 12/2019 Hep B and C neg 2015 and 01/2020 HLA B27 negative 12/2019 TPMT nl 17 Weight loss with imuran, stopped it 01/2017 Mtx stopped due to side effects 2016 Failed Humira Plaquenil failure Diarrhea with Cosentyx. Failed O[facility]cia GI upset with Cosentyx, stopped 05/2020 Imuran caused weight loss 2016, TPMT wnl at 17 in 2016 HLA B27 neg 12/2019 Failed Enbrel and humira TPMT wnl 06/2016 BDS done by pcp 2019 and it showed osteoporosis [facility] 08/2019---[facility] reveal positive anti-DIGITAL COMMENTATOR antibody which is likely a false positive due to negative ASHLEY. Her father had psoriasis, pt changed from ra to PsA on 03/25/2020. ?? Assessment & Plan (06/03/2020 2:56 PM VEHICLE INSURANCE AGENT): Quant gold neg 12/2019 Hep B and C neg 2015 and 01/2020 HLA B27 negative 12/2019 TPMT nl 17 Weight loss with imuran, stopped it 01/2017 Mtx stopped due to side effects 2016 Failed humira Plaquenil failure Failed Orencia GI upset with Cosentyx, stopped 05/2020 Imuran caused weight loss 2016, TPMT wnl at 17 in 2016 HLA B27 neg 12/2019 Failed Enbrel and humira TPMT wnl 06/2016 BDS done by pcp 2019 and it showed osteoporosis [facility] 08/2019---[facility] reveal positive anti-DIGITAL COMMENTATOR antibody which is likely a false positive due to negative ASHLEY. Her father had psoriasis, pt changed from ra to PsA on 03/25/2020. ?? Assessment & Plan (03/25/2020 3:03 PM VEHICLE INSURANCE AGENT): Quant gold neg 12/2019 HLA B27 negative 12/2019 TPMT nl 17 Weight loss with imuran, stopped it 01/2017 Mtx stopped due to side effects 2017 Failed humira Plaquenil failure Failed Orencia Imuran caused weight loss 2016, TPMT wnl at 17 in 2016 Hep B and C neg 2015 and 01/2020 HLA B27 neg 12/2019 Failed Enbrel and humira TPMT wnl 06/2016 BDS done by pcp 2019 and it showed osteoporosis [facility] 08/2019---[facility] reveal positive anti-DIGITAL COMMENTATOR antibody which is likely a false positive due to negative ASHLEY. Her father had psoriasis, pt changed from ra to PsA on 03/25/2020. ?? Assessment & Plan (03/24/2020 7:28 AM VEHICLE INSURANCE AGENT): Quant gold neg 12/2019 HLA B27 negative 12/2019 TPMT nl 17 Weight loss with imuran, stopped it 01/2017 Mtx stopped due to side effects 2017 Failed humira Plaquenil failure Imuran caused weight loss 2016, TPMT wnl at 17 in 2016 Hep B and C neg 2015 Failed Enbrel and humira TPMT wnl 06/2016 BDS done by pcp 2019 and it showed osteoporosis [facility] 08/2019---[facility] reveal positive anti-DIGITAL COMMENTATOR antibody which is likely a false positive due to negative ASHLEY. ?? Assessment & Plan (02/19/2020 8:36 AM CDT): Quant gold neg 12/2019 HLA B27 negative 12/2019 TPMT nl 17 Weight loss with imuran, stopped it 01/2017 Mtx stopped due to side effects 2017 Failed humira Plaquenil failure Imuran caused weight loss 2016, TPMT wnl at 17 in 2016 Hep B and C neg 2016 Failed Enbrel and humira TPMT wnl 06/2016 BDS done by pcp 2019 and it showed osteoporosis [facility] 08/2019---[facility] reveal positive anti-DIGITAL COMMENTATOR antibody which is likely a false positive due to negative ASHLEY. ?? Assessment & Plan (01/21/2020 1:08 PM CDT): Quant gold neg 10/2018. TPMT nl 17 Weight loss with imuran, stopped it 01/2017 Mtx stopped due to side effects 2017 Failed humira Plaquenil failure Imuran caused weight loss 2016, TPMT wnl at 17 in 2016 Hep B and C neg 2015 Failed Enbrel and humira TPMT wnl 06/2016 BDS done by pcp 2019 and it showed osteoporosis [facility] 08/2019---[facility] reveal positive anti-DIGITAL COMMENTATOR antibody which is likely a false positive due to negative ASHLEY. ?? Assessment & Plan (01/07/2020 12:29 PM CDT): Quant gold neg 10/2018. TPMT nl 17 Weight loss with imuran, stopped it 01/2017 Mtx stopped due to side effects 2017 Failed humira Plaquenil failure Imuran caused weight loss 2016, TPMT wnl at 17 in 2016 Hep B and C neg 2015 Failed Enbrel and humira TPMT wnl 06/2016 BDS done by pcp 2019 and it showed osteoporosis [facility] 08/2019---[facility] reveal positive anti-DIGITAL COMMENTATOR antibody which is likely a false positive due to negative ASHLEY. ?? Assessment & Plan (12/23/2019 3:40 PM CDT): Quant gold neg 10/2018. TPMT nl 17 Weight loss with imuran, stopped it 01/2017 Mtx stopped due to side effects 2017 Failed humira Plaquenil failure Imuran caused weight loss 2016, TPMT wnl at 17 in 2016 Hep B and C neg 2015 Failed Enbrel and humira TPMT wnl 06/2016 BDS done by pcp 2018 and it showed osteoporosis [facility] 08/2019---[facility] labs reveal positive anti-DIGITAL COMMENTATOR antibody which is likely a false positive due to negative ASHLEY. Assessment & Plan (12/23/2019 8:38 AM CDT): Quant gold neg 10/2018. TPMT nl 17 Weight loss with imuran, stopped it 01/2017 Mtx stopped due to side effects 2017 Failed humira Plaquenil failure Imuran caused weight loss 2016, TPMT wnl at 17 in 2016 Hep B and C neg 2015 Failed Enbrel and humira TPMT wnl 06/2016 BDS done by pcp 2019 and it showed osteoporosis [facility] 08/2019---[facility] labs reveal positive anti-DIGITAL COMMENTATOR antibody which is likely a false positive due to negative ASHLEY. ?? Assessment & Plan (10/19/2019 8:07 AM CDT): Quant gold neg 10/2018. TPMT nl 17 Weight loss with imuran, stopped it 01/2017 Mtx stopped due to side effects 2017 Failed humira Plaquenil failure Imuran caused weight loss 2016, TPMT wnl at 17 in 2016 Hep B and C neg 2015 Failed Enbrel and humira TPMT wnl 06/2016 BDS done by pcp 2018 and it showed osteoporosis ?? Assessment & Plan (09/10/2019 7:31 AM CDT): Quant gold neg 10/2018. TPMT nl 17 Weight loss with imuran, stopped it 01/2017 Mtx stopped due to side effects 2016 Failed humira Plaquenil failure Imuran caused weight loss 2016, TPMT wnl at 17 in 2016 Hep B and C neg 2015 Failed Enbrel and humira TPMT wnl 06/2016 BDS done by pcp 2018 and it showed osteoporosis ?? Assessment & Plan (07/10/2019 12:30 PM CDT): Quant gold neg 10/2018. TPMT nl 17 Weight loss with imuran, stopped it 01/2017 Mtx stopped due to side effects 2017 Failed humira Plaquenil failure Imuran caused weight loss 2016, TPMT wnl at 17 in 2016 Hep B and C neg 2015 Failed Enbrel and humira TPMT wnl 06/2016 BDS done by pcp 2018 and it showed osteoporosis ?? Assessment & Plan (04/20/2019 4:59 PM VEHICLE INSURANCE AGENT): Quant gold neg 10/2018. TPMT nl 17 Weight loss with imuran, stopped it 01/2017 Failed humira Plaquenil failure Imuran caused weight loss 2016, TPMT wnl at 17 in 2017 Hep B and C neg 2016 Failed Enbrel and humira TPMT wnl 06/2016 BDS done by pcp 2018 and it showed osteoporosis ?? Assessment & Plan (10/31/2018 7:37 AM CDT): Quant gold neg 10/2018. TPMT nl 17 Weight loss with imuran, stopped it 01/2017 Failed humira Plaquenil failure Imuran caused weight loss 2016 Hep B and C neg 2015 Failed Enbrel and humira TPMT wnl 06/2016 BDS done by pcp 2018 and it showed osteoporosis ?? Abnormal LFTs 01/31/2017 Hypermobile joints 01/31/2017 Psoriatic arthritis 01/31/2017 Assessment & Plan (05/28/2022 8:05 AM VEHICLE INSURANCE AGENT): Images from the original note were not included. Had orencia infusion 05/02/2022. Continue orencia monotherapy. Off arava due to lipase elevation. Seeing gi at [facility] now. [place] and egd utd and nl in past year per pt. Had a nl pancreatic US recently with gi. Past serologies: [facility] panel 08/2019---labs reveal positive anti-DIGITAL COMMENTATOR antibody which is likely a false positive due to negative ASHLEY. ?? RF neg but has a possible family hx of psoriatic arthritis (father) so if she develops psoriasis diagnosis will change to psoriatic arthritis. Rt hand US 09/2019 showed: ??F/u 1 month. Assessment & Plan (02/26/2022 12:12 PM VEHICLE INSURANCE AGENT): Images from the original note were not included. High cdai. Her orencia is scheduled tomorrow. Continue orencia monotherapy. Off arava due to lipase elevation. Seeing gi at [facility] now. [place] and egd utd and nl in past year per pt. Had a nl pancreatic US recently with gi. She could be flaring up since her orencia is due tomorrow, overall she still feels that it is helping her joints. Past serologies: [facility] panel 08/2019---labs reveal positive anti-DIGITAL COMMENTATOR antibody which is likely a false positive due to negative ASHLEY. ?? RF neg but has a possible family hx of psoriatic arthritis (father) so if she develops psoriasis diagnosis will change to psoriatic arthritis. Rt hand US 09/2019 showed: ??F/u 1 month. Assessment & Plan (12/11/2021 1:09 PM CDT): Images from the original note were not [...] no complications or infections. Seeing gi at [facility] now for her elevated lipase. [place] and egd utd and nl in past year per pt. If labs stable will restart low dose arava 10mg po every day. To stay off orencia until recovered from rt knee surgery. Past serologies: [facility] panel 08/2019---labs reveal positive anti-DIGITAL COMMENTATOR antibody which is likely a false positive due to negative ASHLEY. ?? RF neg but has a possible family hx of psoriatic arthritis (father) so if she develops psoriasis diagnosis will change to psoriatic arthritis. Rt hand US 09/2019 showed: ??F/u 1 month. Assessment & Plan (12/08/2021 3:16 PM CDT): Images from the original note were not included. High cdai. Pt can restart orencia but will hold off restarting arava due to hx of elevated lipase, still being evaluated by GI. Her orencia is scheduled tomorrow. Seeing gi at [facility] now. [place] and egd utd and nl in past year per pt. Due to burden of dz will give her a short course of oral prednisone. Discussed risks and se of systemic steroids. Past serologies: [facility] panel 08/2019---labs reveal positive anti-DIGITAL COMMENTATOR antibody which is likely a false positive due to negative ASHLEY. ?? RF neg but has a possible family hx of psoriatic arthritis (father) so if she develops psoriasis diagnosis will change to psoriatic arthritis. Rt hand US 09/2019 showed: ??F/u 1 month. Assessment & Plan (09/11/2021 12:59 PM CDT): Images from the original note were not included. High cdai. Pt can restart orencia but will hold off restarting arava due to hx of elevated lipase, still being evaluated by GI. Her orencia is scheduled tomorrow. Seeing gi at [facility] now. [place] and egd utd and nl in past year per pt. Due to burden of dz will give her a short course of oral prednisone. Discussed risks and se of systemic steroids. Past serologies: [facility] panel 08/2019---labs reveal positive anti-DIGITAL COMMENTATOR antibody which is likely a false positive due to negative ASHLEY. ?? RF neg but has a possible family hx of psoriatic arthritis (father) so if she develops psoriasis diagnosis will change to psoriatic arthritis. Rt hand US 09/2019 showed: ??F/u 1 month. Assessment & Plan (08/10/2021 1:02 PM CDT): Images from the original note were not included. Mod cdai. Pt can restart orencia but will hold off restarting arava due to hx of elevated lipiase. Advised pt to see dr yepez and her gi dr arias for her pancreatitis . [place] and egd utd and nl in past year per pt. Seen with dr woodruff today. Past serologies: [facility] panel 08/2019---labs reveal positive anti-DIGITAL COMMENTATOR antibody which is likely a false positive due to negative ASHLEY. ?? RF neg but has a possible family hx of psoriatic arthritis (father) so if she develops psoriasis diagnosis will change to psoriatic arthritis. Rt hand US 09/2019 showed: ??F/u 1 month. Assessment & Plan (06/28/2021 10:22 AM VEHICLE INSURANCE AGENT): Images from the original note were not included. High cdai. On arava 20mg po daily and IV Orencia but stopped orencia a month ago due to pancreatitis. We should also stop her arava today. She was advised to f/u with gi for her pancreatitis, will check amylase and lipase and ua today. Pancreatitis symptoms started before she stared arava she states. Seen with dr woodruff today. To f/u with GI Dr. Arias regarding abd pain and constipation, and recent incidental findings of mesenteric fat stranding, possible adenitis or panniculitis on abd CT (done for kidney stones). Past serologies: [facility] panel 08/2019---labs reveal positive anti-DIGITAL COMMENTATOR antibody which is likely a false positive due to negative ASHLEY. ?? RF neg but has a possible family hx of psoriatic arthritis (father) so if she develops psoriasis diagnosis will change to psoriatic arthritis. Rt hand US 09/2019 showed: ??F/u 1 month. Assessment & Plan (06/15/2021 10:46 AM VEHICLE INSURANCE AGENT): Images from the original note were not included. On arava 10mg po daily and continues on IV Orencia. Will check labs and try going to 20mg of the leflunomide. Seen with dr woodruff today. Is following up with GI Dr. Arias regarding abd pain and constipation, and recent incidental findings of mesenteric fat stranding, possible adenitis or panniculitis on abd CT (done for kidney stones). Past serologies: [facility] panel 08/2019---labs reveal positive anti-DIGITAL COMMENTATOR antibody which is likely a false positive due to negative ASHLEY. ?? RF neg but has a possible family hx of psoriatic arthritis (father) so if she develops psoriasis diagnosis will change to psoriatic arthritis. Rt hand US 09/2019 showed: ??F/u 1 month. Assessment & Plan (06/09/2021 10:16 AM VEHICLE INSURANCE AGENT): Images from the original note were not included. On arava 10mg po daily and continues on IV Orencia. Will check labs and try going to 20mg of the leflunomide. Seen with dr woodruff today. Is following up with GI Dr. Arias regarding abd pain and constipation, and recent incidental findings of mesenteric fat stranding, possible adenitis or panniculitis on abd CT (done for kidney stones). Past serologies: [facility] panel 08/2019---labs reveal positive anti-DIGITAL COMMENTATOR antibody which is likely a false positive due to negative ASHLEY. ?? RF neg but has a possible family hx of psoriatic arthritis (father) so if she develops psoriasis diagnosis will change to psoriatic arthritis. Rt hand US 09/2019 showed: ??F/u 1 month. Assessment & Plan (06/09/2021 8:29 AM VEHICLE INSURANCE AGENT): Images from the original note were not included. On arava 10mg po daily and continues on IV Orencia. Will check labs and try going to 20mg of the leflunomide. Seen with dr woodruff today. Is following up with GI Dr. Arias regarding abd pain and constipation, and recent incidental findings of mesenteric fat stranding, possible adenitis or panniculitis on abd CT (done for kidney stones). Past serologies: [facility] panel 08/2019---labs reveal positive anti-DIGITAL COMMENTATOR antibody which is likely a false positive due to negative ASHLEY. ?? RF neg but has a possible family hx of psoriatic arthritis (father) so if she develops psoriasis diagnosis will change to psoriatic arthritis. Rt hand US 09/2019 showed: ??F/u 1 month. Assessment & Plan (05/05/2021 10:11 PM VEHICLE INSURANCE AGENT): Images from the original note were not included. On arava 10mg po daily and continues on IV Orencia. Will check labs and try going to 20mg of the leflunomide. Seen with dr woodruff today. Is following up with GI Dr. Arias regarding abd pain and constipation, and recent incidental findings of mesenteric fat stranding, possible adenitis or panniculitis on abd CT (done for kidney stones). Past serologies: [facility] panel 08/2019---labs reveal positive anti-DIGITAL COMMENTATOR antibody which is likely a false positive due to negative ASHLEY. ?? RF neg but has a possible family hx of psoriatic arthritis (father) so if she develops psoriasis diagnosis will change to psoriatic arthritis. Rt hand US 09/2019 showed: ??F/u 1 month. Assessment & Plan (03/31/2021 9:24 AM VEHICLE INSURANCE AGENT): Images from the original note were not included. High cdai. Flaring up. Due to burden of dz will give her 100mg of triamcinolone IM today. Discussed risks and se of systemic steroids. Stop imuran and start arava 10mg po every day, discussed potential se. F/u in 1 month to recheck labs. Seen with dr woodruff today. Schedule orencia iv. She will f/u with pcp and gi for her lipase. Past serologies: [facility] panel 08/2019---labs reveal positive anti-DIGITAL COMMENTATOR antibody which is likely a false positive due to negative ASHLEY. ?? RF neg but has a possible family hx of psoriatic arthritis (father) so if she develops psoriasis diagnosis will change to psoriatic arthritis. Rt hand US 09/2019 showed: ?? Assessment & Plan (02/06/2021 2:54 PM CDT): Images from the original note were not included. Mod cdai. Just had her 3rd covid vaccine a few days ago. Advised pt to delay her Orencia iv x 1month from vaccine. Continue on imuran to 100mg bid. Had 3 orencia IV infusions so far. If no improvement in 4-6 months discussed changing to xeljanz, discussed the increased risk of clots, infection, lft elevation, anemia, low wbc, risk of cancers. Pt denied hx of clots in past. Check labs today. Advised to get shingrix also. Had her flu vacicne. In 1 month if she is flared up more she can take a short course of prednisone. Also gave her triamcinolone dental paste to use prn for nose ulcers. Past serologies: [facility] panel 08/2019---labs reveal positive anti-DIGITAL COMMENTATOR antibody which is likely a false positive due to negative ASHLEY. ?? RF neg but has a possible family hx of psoriatic arthritis (father) so if she develops psoriasis diagnosis will change to psoriatic arthritis. Rt hand US 09/2019 showed: ?? Assessment & Plan (11/07/2020 3:45 PM CDT): Images from the original note were not included. High cdai. On imuran to 100mg bid and Stelara. Does not feel better on stelara. Wants to go back to orencia iv since she felt the best on that. Will stop stelara and go back to orencia IV. She had her last stelara almost 3 months ago. Continue imuran. Check labs today. Had both pfizer vaccines already, no se from this. Past serologies: [facility] panel 08/2019---labs reveal positive anti-DIGITAL COMMENTATOR antibody which is likely a false positive due to negative ASHLEY. ?? RF neg but has a possible family hx of psoriatic arthritis (father) so if she develops psoriasis diagnosis will change to psoriatic arthritis. Rt hand US 09/2019 showed: ?? Assessment & Plan (08/08/2020 3:35 PM CDT): Images from the original note were not included. Mod cdai. On imuran to 100mg bid and Stelara. Discussed potential se and risks of stelara tx. Still has joint swelling but so far only had 1 stelara injection so far. Sees gi soon for her colonoscopy. Continue imuran. Check labs today. Had both pfizer vaccines already, no se from this. Past serologies: [facility] panel 08/2019---labs reveal positive anti-DIGITAL COMMENTATOR antibody which is likely a false positive due to negative ASHLEY. ?? RF neg but has a possible family hx of psoriatic arthritis (father) so if she develops psoriasis diagnosis will change to psoriatic arthritis. Rt hand US 09/2019 showed: ?? Assessment & Plan (07/18/2020 8:24 AM CDT): Images from the original note were not included. High cdai. On imuran to 100mg bid and Stelara. Discussed potential se and risks of stelara tx. To see her gi for her diarrhea, she is due for colonoscopy. Continue imuran. To get covid 19 vaccine when available. Past serologies: [facility] panel 08/2019---labs reveal positive anti-DIGITAL COMMENTATOR antibody which is likely a false positive due to negative ASHLEY. ?? RF neg but has a possible family hx of psoriatic arthritis (father) so if she develops psoriasis diagnosis will change to psoriatic arthritis. Rt hand US 09/2019 showed: ?? Assessment & Plan (06/03/2020 5:27 PM VEHICLE INSURANCE AGENT): Images from the original note were not included. High cdai. On imuran to 100mg bid and cosentyx. Having increasing diarrhea on cosentyx so will stop it and change to Stelara. Discussed potential se and risks of stelara tx. To see her gi for her diarrhea, she is due for colonoscopy. Continue imuran. Seen with Dr Woodruff today. To get covid 19 vaccine when available. Past serologies: [facility] panel 08/2019---labs reveal positive anti-DIGITAL COMMENTATOR antibody which is likely a false positive due to negative ASHLEY. ?? RF neg but has a possible family hx of psoriatic arthritis (father) so if she develops psoriasis diagnosis will change to psoriatic arthritis. Rt hand US 09/2019 showed: ?? Assessment & Plan (03/25/2020 3:01 PM VEHICLE INSURANCE AGENT): Images from the original note were not included. On orencia sq again and imuran to 100mg bid but she is failing orencia. Her father had hx of psoriasis so will change her diagnosis from seronegative RA to Psoriatic arthritis. Seen with Dr Woodruff today. To get 1st inj in the office. Discussed risks and se of cosentyx. Past serologies: [facility] panel 08/2019---labs reveal positive anti-DIGITAL COMMENTATOR antibody which is likely a false positive due to negative ASHLEY. ?? RF neg but has a possible family hx of psoriatic arthritis (father) so if she develops psoriasis diagnosis will change to psoriatic arthritis. Rt hand US 09/2019 showed: ?? Assessment & Plan (03/24/2020 7:29 AM VEHICLE INSURANCE AGENT): Images from the original note were not included. [place] ai Wants to go back to sq orencia, gave pt 1 mo of samples and will start approval. Can't come in for iv orencia, her dad is on hospice. Increase imuran to 100mg bid, check cbc/cmp in 2 weeks and f/u in 1month. Past serologies: [facility] panel 08/2019---labs reveal positive anti-DIGITAL COMMENTATOR antibody which is likely a false positive due to negative ASHLEY. ?? RF neg but has a possible family hx of psoriatic arthritis (father) so if she develops psoriasis diagnosis will change to psoriatic arthritis. Rt hand US 09/2019 showed: ?? Assessment & Plan (02/19/2020 11:34 AM CDT): [place] ai Wants to go back to sq orencia, gave pt 1 mo of samples and will start approval. Can't come in for iv orencia, her dad is on hospice. Increase imuran to 100mg bid, check cbc/cmp in 2 weeks and f/u in 1month. Past serologies: [facility] panel 08/2019---labs reveal positive anti-DIGITAL COMMENTATOR antibody which is likely a false positive due to negative ASHLEY. ?? RF neg but has a possible family hx of psoriatic arthritis (father) so if she develops psoriasis diagnosis will change to psoriatic arthritis. Rt hand US 09/2019 showed: ?? Assessment & Plan (01/22/2020 12:51 PM CDT): Images from the original note were not included. Mod cdai, improved from last time although pt still feels that she is hurting a lot. Does not want a steroid inj today. Will continue imuran 100mg every day and will change to orencia IV which in past she felt worked better for her. Infusion is scheduled in 12 d. Labs are utd. Flu vaccine today. Refill tramadol for pain. Discussed risk of sedation, constipation and habit forming. Past serologies: [facility] panel 08/2019---labs reveal positive anti-DIGITAL COMMENTATOR antibody which is likely a false positive due to negative ASHLEY. ?? RF neg but has a possible family hx of psoriatic arthritis (father) so if she develops psoriasis diagnosis will change to psoriatic arthritis. Rt hand US 09/2019 showed: ?? Assessment & Plan (01/18/2020 2:50 PM CDT): Images from the original note were not included. High cdai. Due to burden of dz will give her 100mg of triamcinolone IM today, discussed risks and se of systemic steroids, she is to watch carbs in t(denies hx of dm2) and take ca + vit d 1200mg po every day. [facility] panel 08/2019---labs reveal positive anti-DIGITAL COMMENTATOR antibody which is likely a false positive due to negative ASHLEY. ??Otherwise labs look good. ??No evidence of a new autoimmune connective tissue disease. Cont orencia sq and imuran 100mg po qhs. [place] better on iv orencia, will change from sq to iv orencia if approved by insurance. RF neg but has a possible family hx of psoriatic arthritis (father) so if she develops psoriasis diagnosis will change to psoriatic arthritis. Rt hand US 09/2019 showed: ?? Assessment & Plan (12/23/2019 3:48 PM CDT): High cdai. Several swollen and tender joints noted on peripheral exam today. Notes benefit with Orencia but held last week due to fevers and possible COVID-19 exposure. Patient tested negative for COVID-19. Fevers have since resolved. [facility] panel 08/2019---labs reveal positive anti-DIGITAL COMMENTATOR antibody which is likely a false positive due to negative ASHLEY. ??Otherwise labs look good. ??No evidence of a new autoimmune connective tissue disease. RF neg but has a possible family hx of psoriatic arthritis (father) so if she develops psoriasis diagnosis will change to psoriatic arthritis. Continue Orencia SQ weekly and azathioprine 100mg AM and 50mg PM. Routine labs today. Check CBC/CMP every 6 weeks. Recommend Voltaren gel otc for hand and knee pain. Offered kenalog IM due to flare however patient defers due to hx of osteoporosis. Will refill tramadol today. If she continues to flare after restarting Orencia SQ and with tramadol she will call the office for kenalog IM. Follow up in 1 month. Sooner if needed. Assessment & Plan (12/23/2019 8:37 AM CDT): Images from the original note were not included. Mod cdai, has improved. On orencia sq since last visit.. Continue imuran to 150mg po every day. Check cbc/cmp today and every 6 weeks. Will also give her pennsaid cream for hand and knee pain to use bid prn. Continue present meds. Has only had 7 orencia injections so far per patient. Will re-evaluate at 6 mo of orencia. [facility] panel 08/2019---labs reveal positive anti-DIGITAL COMMENTATOR antibody which is likely a false positive due to negative ASHLEY. ??Otherwise labs look good. ??No evidence of a new autoimmune connective tissue disease. Cont treatment plan RF neg but has a possible family hx of psoriatic arthritis (father) so if she develops psoriasis diagnosis will change to psoriatic arthritis. Rt hand US 09/2019 showed: ?? Assessment & Plan (10/19/2019 9:50 AM CDT): Images from the original note were not included. Mod cdai, has improved. On orencia sq since last visit.. Continue imuran to 150mg po every day. Check cbc/cmp today and every 6 weeks. Will also give her pennsaid cream for hand and knee pain to use bid prn. Continue present meds. Has only had 7 orencia injections so far per patient. Will re-evaluate at 6 mo of orencia. [facility] panel 08/2019---labs reveal positive anti-DIGITAL COMMENTATOR antibody which is likely a false positive due to negative ASHLEY. ??Otherwise labs look good. ??No evidence of a new autoimmune connective tissue disease. Cont treatment plan RF neg but has a possible family hx of psoriatic arthritis (father) so if she develops psoriasis diagnosis will change to psoriatic arthritis. Rt hand US 09/2019 showed: ?? Assessment & Plan (09/10/2019 10:44 AM CDT): High cdai. On orencia sq since last visit, had 5 inj so far. Increase imuran to 150mg po every day and check cbc/cmp in 2 weeks and f/u in [address] woodruff today. RF neg but has a possible family hx of psoriatic arthritis (father) so if she develops psoriasis diagnosis will change to psoriatic arthritis. Labs stable 08/01/18.TPMT wnl. Dr. Woodruff spoke to patient about use of steroids and osteoporosis. She may have a triamcinolone with minimal risk of exacerbation of osteoporosis. Due to burden of disease Dr. Woodruff offered IM steroid and patient is agreeable. Recheck serologies and rt hand US. Se of systemic steroid discussed with pt. ?? Assessment & Plan (07/10/2019 12:31 PM CDT): High cdai. On orencia IV but only had 1 infusion in April then ended up with pneumonia. She feels better when she is on it. Will change to sq Orencia to make it more convenient for patient. Pt gets infections easily despite nl IgG and Orencia has the lowest risk of infections of all the biologics so will continue it. Continue imuran 50mg bid. Check labs today. RF neg but has a possible family hx of psoriatic arthritis (father) so if she develops psoriasis diagnosis will change to psoriatic arthritis. Labs stable 08/01/18.TPMT wnl. ?? Assessment & Plan (04/23/2019 1:46 PM VEHICLE INSURANCE AGENT): High cdai. On orencia IV but has not had it since November. Was also on azathioprine 50mg po bid but was only taking it on/off due to infection. Advised pt to get labs q 6 weeks while on imuran. Will restart orencia iv. Check labs today. RF neg but has a possible family hx of psoriatic arthritis (father) so if she develops psoriasis diagnosis will change to psoriatic arthritis. Labs stable 08/01/18.TPMT wnl. ?? Assessment & Plan (10/31/2018 2:11 PM CDT): Mod cdai. Orencia IV approved by insurance. Had 3 infusions without any se. Will continue present meds. RF neg but has a possible family hx of psoriatic arthritis (father) so if she develops psoriasis diagnosis will change to psoriatic arthritis. Labs stable 08/01/18.TPMT wnl. ?? Migraine 06/29/2015 Overview (07/26/2016): Migraines Diverticulosis of colon without diverticulitis 0 06/29/2015 Overview (07/26/2016): Diverticulosis of colon w/o diverticulitis Kidney stones 09/09/2014 Assessment & Plan (11/07/2020 3:45 PM CDT): Multiple kidney stones for over 10 yrs, they uric acid. Has proteinuria also. Urologist is keepin tabs on this. Urologist has her on potassium citrate. Assessment & Plan (08/08/2020 8:17 AM CDT): Multiple kidney stones for over 10 yrs, they uric acid. Has proteinuria also. Urologist is keepin tabs on this. Urologist has him on potassium citrate. Assessment & Plan (07/18/2020 8:25 AM CDT): Multiple kidney stones for over 10 yrs, they uric acid. Has proteinuria also. Urologist is keepin tabs on this. Urologist has him on potassium citrate. Assessment & Plan (06/03/2020 2:56 PM VEHICLE INSURANCE AGENT): Multiple kidney stones for over 10 yrs, 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 Urologist is keepin tabs on this. Urologist has him on potassium citrate. Urinary tract infection 09/09/2014 Immunizations Name Administration Dates Next Due Influenza, Quadrivalent, Dali l Culture-based MDCK, Antibiotic Free, Intramuscular 01/22/2020 Social History Tobacco Use Types Packs/Day Years Used Date Smoking Tobacco: Former Cigarettes 0.5 10 0 04/22/2002 - 04/22/2012 Smokeless Tobacco: Never Tobacco Cessation:Counseling Given: Not Answered Alcohol Use Standard Drinks/Week Comments Yes 0 [...] on file Legal Sex Female 9:24 PM VEHICLE INSURANCE AGENT Gender Identity Female 08/14/2022 11:32 AM CDT Sexual Orientation Straight 02/13/2023 7: 01 AM CDT Last Filed Vital Signs Vital Sign Reading [...] Mass Index 32.28 07/03/2023 7:28 AM CDT Plan of Treatment Not on file Procedures Procedure Name Priority Date/Time Associated Diagnosis Comments THINPREP PAP WITH HPV Routine 12/24/2018 3:41 PM CDT Well woman exam SERUM HEPATITIS C AB Routine 06/29/2015 2:43 PM VEHICLE INSURANCE AGENT from Last 3 Months or Most Recently Relevant to Health Maintenance Results * ThinPrep Pap with HPV (12/24/2018 3:41 PM CDT) 12/24/2018 3:41 PM CDT 12/25/2018 8:54 AM CDT Narrative [facility] - 12/26/2018 2:53 PM CDT [facility] Department of Pathology [address] [place] [id number] Final Report with Addendum Patient Name: ??JULIAN SAUER Address: ??[address] [place] [address], ?? [place], [place] ?? Gender: ??F : ??1975 (Age: 43) Service: ??Laboratory Location: ??Lab Hospital #: ??[id number] Patient Type: ?? Ref Lab Taken: ??12/24/2018 Received: ??12/25/2018 Accessioned:: ??12/26/2018 Reported: ??12/26/2018 Physician(s): Curtis Oseguera M.D. [facility] Diagnosis: Source of Specimen: ? SCREENING IMAGED PAP w/ HPV Specimen Adequacy: ?- Satisfactory for evaluation; endocervical/transformation zone component present General Category: ?- Negative for intraepithelial lesion or malignancy ?? NAEEM Montano(ASCP) Report Electronically Reviewed and Signed Out By ??NAEEM Montano(ASCP) ??12/26/2018 14:53:08 ??Addenda: HPV RNA Test Interpretation NEGATIVE for types 16, 18, 31, 33, 35, 39, 45, 51, 52, 56, 58, 59, 66 and 68. Test performed utilizing Gen-Probe Aptima assay. ?? NAEEM Carrera(ASCP) ??Report Electronically Reviewed and Signed Out By ??NAEEM Carrera(ASCP) ??12/26/2018 12:46:00 ? Specimen(s) Received: A: SCREENING IMAGED PAP w/ HPV Clinical History: Last Menstrual Period: months ago The Pap test is a screening test used to aid in the detection of cervical cancer and its precursors. ??It should not be the sole means by which malignant and premalignant lesions are diagnosed. ??Both false negative and false positive results may occur. ?? It also has poor sensitivity for the detection of endometrial lesions and should not be used to evaluate suspected endometrial abnormalities. ??For these reasons it is most important to obtain Pap tests at regular intervals. The performance characteristics of some immunohistochemical stains, fluorescence in-situ hybridization tests and immunophenotyping by flow cytometry cited in this report (if any) were determined by the Surgical Pathology Department at [facility] as part of an ongoing quality control lab tech program and in compliance with federally mandated regulations drawn from the Clinical Laboratory Improvement Act of 1988 (CLIA '88). ??Some of these tests rely on the use of analyte specific reagents and are subject to specific labeling requirements by the US Food and Drug Administration. ??Such diagnostic tests may only be performed in a facility that is certified by the Department of Health and Human Services as a high complexity laboratory under CLIA '88. The FDA has determined that such clearance or approval is not necessary. ??This test is used for clinical purposes. ??It should not be regarded as investigational or for research. ??Nevertheless, federal rules concerning the medical use of analyte specific reagents require that the following disclaimer be attached to the report: This test was developed and its performance characteristics determined by the Surgical Pathology Department [facility]. ??It has not been cleared or approved by the U. S. Food and Drug Administration. us Curtis Oseguera MD LAB CYTOLOGY ORDERABLES Final Result [address] [phone] * Serum Hepatitis C ab (06/29/2015 2:43 PM VEHICLE INSURANCE AGENT) HCV ab Non-Reacti ve Non-Reacti ve HISTORICAL RESULTS Serum 06/29/2015 2:43 PM VEHICLE INSURANCE AGENT us Miriam VALLE LAB BLOOD ORDERAB LES Final Result HISTORICAL RESULTS from Last 3 Months or Most Recently Relevant to Health Maintenance [place] [facility] Care Teams Bilingual Executive Assistant Relationship Specialty Start Date End Date Bhupinder Tobias MD [address] [facility] [address] [place] [address] PCP - General Internal Medicine 06/03/20 Cash Woodruff III, MD [address] [facility] [address] [place] [address] Rheumatology 04/12/17 Jorge Aguiar MD [address] [facility] [address] [place] [address] Consulting Physician Urology 11/10/20 Khoa Arais MD [address] [facility] [address] [place] [address] Referring Physician Gastroenterology 03/20/21
--- OUTSIDE RECORDS SUMMARY | 2024-04-29 19:22 | XMS_ITS | Encounter Summary ---
Author Organization [facility] Address [address] [place] [address] Phone Care Team Providers Care Orthotic And Prosthetic Technician Name Role Phone Kumar CARRILLO MD, Cash Howard Unavailable [phone] Bhupinder Tobias MD Primary Care Provider [phone] Jorge Aguiar MD Unavailable [phone] Khoa Arias MD Unavailable [phone] Encounter Details Date Type Department Care Team (Late st Contact Info) Description 02/22/[address] [facility] ([facility]) - [facility] Minimally Invasive Surgery [facility] Advanced Medicine [address]th Floor, [place] [address] Sera Bearden RMSachin Social History Tobacco Use Types Packs/Day Years [...] on file Legal Sex Female 9:24 PM CAR FERRY CAPTAIN Gender Identity Female 08/14/2022 11:32 AM CDT Sexual Orientation Straight 02/13/2023 7: 01 AM CDT documented as of this encounter Miscellaneous Notes * Telephone Encounter - Sera Bearden RMA - 02/22/2023 1:28 PM CDT Date: 02/22/2023 Reason for Call: Schedule manometry/pH testing Patient Provider: Eyad eSrvin M.D., Ph.D. Medical/Surgical Information: Outcome/Plan: Called pt and left voicemail that we need to schedule her manometry/pH testing scheduled or this will cause a delay in surgery. Called and left message at [facility] to see when we would be able to get pt scheduled. No other changesmade. documented in this encounter Plan of Treatment Not on file documented as of this encounter Visit Diagnoses Not on filedocumented in this encounter Care Teams Orthotic And Prosthetic Technician Relationship Specialty Start Date End Date Bhupinder Tobias MD [address] [facility] [address] [place] [address] PCP - General Internal Medicine 06/03/20 Cash Heath III, MD [address] [facility] [address] [place] [address] Rheumatology 04/12/17 Jorge Aguiar MD [address] [facility] [address] [place] [address] Consulting Physician Urology 11/10/20 Khoa Arias MD [address] [facility] [address] [place] [address] Referring Physician Gastroenterology 03/20/21 documented as of this encounter
--- OUTSIDE RECORDS SUMMARY | 2024-04-29 19:22 | XMS_ITS | Encounter Summary ---
Author Organization [facility] Address [address] [place] [address] Phone Care Team Providers Care Manufacturing Leader Name Role Phone Kumar CARRILLO MD, Cash Howard Unavailable [phone] Bhupinder Tobias MD Primary Care Provider [phone] Jorge Aguiar MD Unavailable [phone] Khoa Arias MD Unavailable Encounter Details Date Type Department Care Team (Late st Contact Info) Description 02/20/[address] [facility] ([facility]) - [facility] Minimally Invasive Surgery [address] [facility] Advanced Medicine [address]th Floor, [place] [address] Gil Ignacio RMA Social History Tobacco Use Types Packs/Day [...] on file Legal Sex Female 9:24 PM APPLICATION SUPPORT ANALYST Gender Identity Female 08/14/2022 11:32 AM CDT Sexual Orientation Straight 02/13/2023 7: 01 AM CDT documented as of this encounter Miscellaneous Notes * Telephone Encounter - Gil Ignacio RMA - 02/20/2023 2:03 PM CDT I spoke with Denita today about Mis. Shashek mono/ph test. Denita don't have any openings till 04/08 to get her in for both test but her surgery has been schedule for 04/[address] Servin. Left voice message for Zully at [employer] [phone] to see if they can dulce her in sooner. Waiting for response. Receive a call from [email or web address]) they can dulce her in end of February beginning of March but sayingthey left multiple messages for patient to call and never heard anything back. I called her today left message on her phone and To[employer]'s phone() to call back for the test to be schedule. documented in this encounter Plan of Treatment Not on file documented as of this encounter Visit Diagnoses Not on filedocumented in this encounter Care Teams Manufacturing Leader Relationship Specialty Start Date End Date Bhupinder Tobias MD [address] [facility] [address] [place] [address] PCP - General Internal Medicine 06/03/20 Cash Heath III, MD [address] [place] [address] [place] [address] Rheumatology 04/12/17 Jorge Aguiar MD [address] [facility] [address] [place] [address] Consulting Physician Urology 11/10/20 Khoa Arias MD [address] [place] [address] Referring Physician Gastroenterology 03/20/21 documented as of this encounter
--- OUTSIDE RECORDS SUMMARY | 2024-04-29 19:22 | XMS_ITS | Encounter Summary ---
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 Name Role Phone Kumar CARRILLO MD, Cash Howard Unavailable [phone] Bhupinder Tobias MD Primary Care Provider [phone] Jorge Aguiar MD Unavailable [phone] Khoa Arias MD Unavailable Reason for Visit * Auth/Cert Specialty Diagnoses / Procedures Referred By Kaylynn t Referred To Contact Diagnoses Acute pancreatitis, unspecified complication status, unspecified pancreatitis type Acute pancreatitis, unspecified complication status, unspecified pancreatitis type [K85.90] Procedures ID EDG US EXAM SURGICAL ALTER STOM DUODENUM/JEJUNUM US Endoscopy ESOPHAGOGASTRODUODENOSCOPY Referral ID Status Reason Start Date Expiration Date Visits Re quested Visits Authorized [id number] 1 1 Encounter Details Date Type Department Care Team (Late st Contact Info) Description 08/31/2021 10:30 AM CDT - 08/31/2021 11:00 AM CDT Surgery [facility] [address] [place] [address] Devin Miller MD [address] [facility] [address] [place] [address] US Endoscopy Surgery Details Date/Time Status Location OR Service Patient Class Case Class Case Type Trauma Case? 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 Gender Identity Female 08/14/2022 11:32 AM CDT Sexual Orientation Straight 02/13/2023 7: 01 AM CDT documented as of this encounter Last Filed Vital Signs Vital Sign Reading Time Taken Comments Blood Pressure 103/66 08/31/2021 10:58 AM CDT Pulse 72 08/31/2021 10:58 AM CDT Temperature 36.5 ??C (97.7 ??F) 08/31/2021 10:58 AM C DT Respiratory Rate 18 08/31/2021 10:58 AM CDT Oxygen Saturation 99% 08/31/2021 10:58 AM CDT Inhaled Oxygen Concentration - - Weight 88.9 kg (196 lb) 08/31/2021 10:20 AM CDT Height 167.6 cm (5' 6 ) 08/31/2021 10:20 AM CDT Body Mass Index 31.64 08/31/2021 10:20 AM CDT documented in this encounter Medications at Time [...] (CYMBALTA) 60 mg capsule 60 mg daily HYDROcodone-acetamin ophen (NORCO) 5-325 mg per tabletIndications:Pa in Take 1 tablet by mouth every 4 (four) hours as needed for pain Do not exceed 8 tablets/day. 10 tablet 06/30/[address] (PROTONIX) 40 mg EC tablet [...] mg tablet Take 100 mg by mouth alendronate (FOSAMAX) 70 mg tablet 1 09/02/2018 3 AMITIZA 24 mcg capsule TK ONE C PO BID WF AND WATER 1 12/15/2018 3 diclofenac sodium 20 mg/gram /actuation(2 %) solution in metered-dose pump Apply 40 mg topically 2 (two) times a day 112 g 1 10/19/2019 3 leflunomide (ARAVA) 20 mg tabletIndications:Ps oriatic Arthritis Take 1 tablet (20 mg total) by mouth daily 90 tablet 1 05/05/2021 2 ondansetron ODT (ZOFRAN-ODT) 4 mg disintegrating tablet Dissolve 1 tablet for mild to moderate nausea or vomiting or 2 tablets for severe nausea or vomiting oral twice a day as needed. 15 tablet 07/23/2021 2 ondansetron ODT (ZOFRAN-ODT) 8 mg disintegrating tablet DISSOLVE 1 TABLET(8 MG) ON THE TONGUE EVERY 8 HOURS NEEDED FOR NAUSEA OR VOMITING 60 tablet 05/12/2021 2 polyethylene glycol (MIRALAX) 17 gram/dose powder Take 17 g by mouth 2 (two) times a day as needed 12/29/2018 3 Saccharomyces boulardii (FLORASTOR) 250 mg capsule Take 250 mg by mouth 02/02/2017 3 triamcinolone (KENALOG) 0.1 % paste Apply 0.5 inches to teeth 2 (two) times a day 15 g 02/06/2021 3 documented as of this encounter Discharge Disposition Disposition Code Departure Means Destination Discharge to home or self care documented in this encounter H&P Notes * Devin Miller MD - 08/31/2021 10:58 AM CDT Pre Endoscopy History and Physical Julian Sauer is a 46 y.o. female who is here for Procedure(s): US Endoscopy ENDO ADD ON ESOPHAGOGASTRODUODENOSCOPY BIOPSY The indication(s) for the procedure(s): ?pancreatitis. Past Medical History: Diagnosis Date ??? Diverticulitis ??? Meredith-Danlos syndrome ??? Hemorrhoid ??? IBS (irritable bowel syndrome) ??? Kidney stone ??? Migraine ??? RA (rheumatoid arthritis) (HCC) Past Surgical History: Procedure Laterality Date ??? SECTION ??? COLONOSCOPY ??? FACIAL SURGERY ??? KNEE SURGERY knee surgery ??? LITHOTRIPSY ??? TONSILLECTOMY ??? UPPER GASTROINTESTINAL ENDOSCOPY Social History Tobacco Use ??? Smoking status: Former Smoker Quit date: 2013 Years since quittin.3 ??? Smokeless tobacco: Never Used Substance Use Topics ??? Alcohol use: No Family History Problem Relation Age of Onset ??? Cancer Other Family history of Cancer, unknown; ??? Lung cancer Other Family history of Cancer, lung; ??? Skin cancer Other Family history of Cancer, skin; ??? Other Other Family history of lymphatic; ??? Crohn's disease Other Family history of Crohn's disease; ??? Colon cancer Neg Hx ??? Esophageal cancer Neg Hx ??? Liver cancer Neg Hx Allergies Allergen Reactions ? ? Ibuprofen Nausea & Vomiting Stomach ulcers - tablets - okay with IV Prior to Admission medications Medication Sig Start Date End Date Taking? Authorizing Provider ALPRAZolam (XANAX) 1 mg tablet Take 1 mg by mouth 3 (three) times a day 08/03/21 Yes ProviderJohn MD AMITIZA 24 mcg capsule TK ONE C PO BID WF AND WATER 12/15/18 Yes ProviderJohn MD buPROPion XL (WELLBUTRIN XL) 300 mg 24 hr tablet Take 300 mg by mouth Yes Provider, MD John dicyclomine (BENTYL) 10 mg capsule Take 10 mg by mouth every 6 hours as needed 07/23/18 Yes Provider,MD John DULoxetine (CYMBALTA) 60 mg capsule 60 mg daily Yes ProviderJohn MD HYDROcodone-acetaminophen (NORCO) 5-325 mg per tablet Take 1 tablet by mouth every 4 (four) hours as needed for pain Do not exceed 8 tablets/day. Patient taking differently: Take 1 tablet by mouth every 4 (four) hours as needed for pain Do not exceed 8 tablets/day. Patient reports that she is now on 10-325 06/30/21 Yes Librado Peterson MD leflunomide (ARAVA) 20 mg tablet Take 1 tablet (20 mg total) by mouth daily 05/05/21 Yes Ghazala Ulloa PA ondansetron ODT (ZOFRAN-ODT) 8 mg disintegrating tablet DISSOLVE 1 TABLET(8 MG) ON THE TONGUE EVERY8 HOURS NEEDED FOR NAUSEA OR VOMITING 05/12/21 Yes Cash Heath III, MD pantoprazole (PROTONIX) 40 mg EC tablet TAKE 1 TABLET(40 MG) BY MOUTH DAILY 30 MINUTES BEFORE BREAKFAST 12/21/15 Yes ProviderJohn MD polyethylene glycol (MIRALAX) 17 gram/dose powder Take 17 g by mouth 2 (two) times a day as needed 12/29/18 Yes ProviderJohn MD potassium citrate ER (UROCIT-K) 15 mEq tablet extended release TK 1 T PO BID 12/19/18 Yes ProviderJohn MD propranoloL (INDERAL) 10 mg tablet Take 10 mg by mouth daily 08/03/21 Yes ProviderJohn MD Saccharomyces boulardii (FLORASTOR) 250 mg capsule Take 250 mg by mouth 02/02/17 Yes John Montero MD SUMAtriptan (IMITREX) 50 mg tablet TK 1 T PO AOS OF MIGRAINE. MAY REPEAT AFTER 2 H IF MERCADO RETURNS. MAXIMUM 4 TS IN 24 H 07/09/16 Yes John Montero MD traZODone (DESYREL) 100 mg tablet Take 100 mg by mouth Yes John Montero MD alendronate (FOSAMAX) 70 mg tablet 09/02/18 John Montero MD diclofenac sodium 20 mg/gram /actuation(2 %) solution in metered-dose pump Apply 40 mg topically 2 (two) times a day 10/19/19 Miriam Frye PA ondansetron ODT (ZOFRAN-ODT) 4 mg disintegrating tablet Dissolve 1 tablet for mild to moderate nausea or vomiting or 2 tablets for severe nausea or vomiting oral twice a day as needed. 07/23/21 Sophia Bahena MD tamsulosin (FLOMAX) 0.4 mg extended release capsule Take 1 capsule (0.4 mg total) by mouth daily 06/30/21 Gennaro Martinez NP triamcinolone (KENALOG) 0.1 % paste Apply 0.5 inches to teeth 2 (two) times a day 02/06/21 Miriam Frye PA linaclotide (LINZESS) 145 mcg capsule Take 145 mcg by mouth Patient not taking: Reported on 08/30/2021 09/15/15 08/31/21 John Montero MD LYRICA 75 mg capsule TK ONE C PO BID Patient not taking: Reported on 08/30/2021 08/17/18 08/31/21 John Montero MD sucralfate (CARAFATE) suspension 1 gram/10 mL TAKE 10 ML BY MOUTH FOUR TIMES DAILY BEFORE MEALS ANDNIGHTLY Patient not taking: Reported on 08/30/2021 10/15/17 08/31/21 John Montero MD Review of Systems A pertinent, focused review of systems was completed and negative, except as noted above. OBJECTIVE: Vitals: Vitals: 08/31/21 1020 BP: 120/81 Pulse: 80 Resp: 22 Temp: 36.1 ??C (97 ??F) TempSrc: Temporal SpO2: 98% Weight: 88.9 kg (196 lb) Height: 167.6 cm (5' 6 ) Physical Exam: Airway: No significant abnormality. Cardiac: No significant abnormality. Pulmonary: No significant abnormality. Neurological: No significant abnormality. Gastrointestinal: No significant abnormality. ASA Score: per Anesthesia Sedation/Anesthesia Plan: per Anesthesia The risks and complications of the procedure have been explained to the patient. Informed consent was signed. Impression and plan: Will proceed with the planned procedure for the reasons stated above. * Devin Miller MD - 08/31/2021 10:19 AM CDT Pre Endoscopy History and Physical Julian Sauer is a 46 y.o. female who is here for Procedure(s): US Endoscopy ESOPHAGOGASTRODUODENOSCOPY The indication(s) for the procedure(s): pancreatityis. Past Medical History: Diagnosis Date ??? Diverticulitis ??? Meredith-Danlos syndrome ??? Hemorrhoid ??? IBS (irritable bowel syndrome) ??? Kidney stone ??? Migraine ??? RA (rheumatoid arthritis) (HCC) Past Surgical History: Procedure Laterality Date ??? SECTION ??? FACIAL SURGERY ??? KNEE SURGERY knee surgery ??? LITHOTRIPSY ??? TONSILLECTOMY Social History Tobacco Use ??? Smoking status: Former Smoker Quit date: 2013 Years since quittin.3 ??? Smokeless tobacco: Not on file Substance Use Topics ??? Alcohol use: No Family History Problem Relation Age of Onset ??? Cancer Other Family history of Cancer, unknown; ??? Lung cancer Other Family history of Cancer, lung; ??? Skin cancer Other Family history of Cancer, skin; ??? Other Other Family history of lymphatic; ??? Crohn's disease Other Family history of Crohn's disease; Allergies Allergen Reactions ? ? Ibuprofen Nausea & Vomiting Stomach ulcers - tablets - okay with IV Prior to Admission medications Medication Sig Start Date End Date Taking? Authorizing Provider ALPRAZolam (XANAX) 1 mg tablet Take 1 mg by mouth 3 (three) times a day 08/03/21 Yes Provider, MD John AMITIZA 24 mcg capsule TK ONE C PO BID WF AND WATER 8/26/19 Yes ProviderJohn MD buPROPion XL (WELLBUTRIN XL) 300 mg 24 hr tablet Take 300 mg by mouth Yes ProviderJohn MD dicyclomine (BENTYL) 10 mg capsule Take 10 mg by mouth every 6 hours as needed 07/23/18 Yes Provider,MD John DULoxetine (CYMBALTA) 60 mg capsule 60 mg daily Yes Provider, MD John HYDROcodone-acetaminophen (NORCO) 5-325 mg per tablet Take 1 tablet by mouth every 4 (four) hours as needed for pain Do not exceed 8 tablets/day. Patient taking differently: Take 1 tablet by mouth every 4 (four) hours as needed for pain Do not exceed 8 tablets/day. Patient reports that she is now on 10-325 06/30/21 Yes Librado Peterson MD leflunomide (ARAVA) 20 mg tablet Take 1 tablet (20 mg total) by mouth daily 05/05/21 Yes Ghazala Ulloa PA ondansetron ODT (ZOFRAN-ODT) 8 mg disintegrating tablet DISSOLVE 1 TABLET(8 MG) ON THE TONGUE EVERY8 HOURS NEEDED FOR NAUSEA OR VOMITING 05/12/21 Yes Cash Heath III, MD pantoprazole (PROTONIX) 40 mg EC tablet TAKE 1 TABLET(40 MG) BY MOUTH DAILY 30 MINUTES BEFORE BREAKFAST 12/21/15 Yes Provider, MD John polyethylene glycol (MIRALAX) 17 gram/dose powder Take 17 g by mouth 2 (two) times a day as needed 12/29/18 Yes Provider, MD John potassium citrate ER (UROCIT-K) 15 mEq tablet extended release TK 1 T PO BID 12/19/18 Yes Provider, MD John propranoloL (INDERAL) 10 mg tablet Take 10 mg by mouth daily 08/03/21 Yes Provider, MD John Saccharomyces boulardii (FLORASTOR) 250 mg capsule Take 250 mg by mouth 02/02/17 Yes Provider, MD John SUMAtriptan (IMITREX) 50 mg tablet TK 1 T PO AOS OF MIGRAINE. MAY REPEAT AFTER 2 H IF MERCADO RETURNS. MAXIMUM 4 TS IN 24 H 07/09/16 Yes ProviderJohn MD traZODone (DESYREL) 100 mg tablet Take 100 mg by mouth Yes Provider, MD John alendronate (FOSAMAX) 70 mg tablet 09/02/18 John Montero MD diclofenac sodium 20 mg/gram /actuation(2 %) solution in metered-dose pump Apply 40 mg topically 2 (two) times a day 10/19/19 Miriam Frye PA ondansetron ODT (ZOFRAN-ODT) 4 mg disintegrating tablet Dissolve 1 tablet for mild to moderate nausea or vomiting or 2 tablets for severe nausea or vomiting oral twice a day as needed. 07/23/21 Sophia Bahena MD tamsulosin (FLOMAX) 0.4 mg extended release capsule Take 1 capsule (0.4 mg total) by mouth daily 06/30/21 Gennaro Martinez NP triamcinolone (KENALOG) 0.1 % paste Apply 0.5 inches to teeth 2 (two) times a day 02/06/21 Miriam Frye PA linaclotide (LINZESS) 145 mcg capsule Take 145 mcg by mouth Patient not taking: Reported on 08/30/2021 09/15/15 08/31/21 John Montero MD LYRICA 75 mg capsule TK ONE C PO BID Patient not taking: Reported on 08/30/2021 08/17/18 08/31/21 John Montero MD sucralfate (CARAFATE) suspension 1 gram/10 mL TAKE 10 ML BY MOUTH FOUR TIMES DAILY BEFORE MEALS ANDNIGHTLY Patient not taking: Reported on 08/30/2021 10/15/17 08/31/21 John Montero MD Review of Systems A pertinent, focused review of systems was completed and negative, except as noted above. OBJECTIVE: Vitals: There were no vitals filed for this visit. Physical Exam: Airway: No significant abnormality. Cardiac: No significant abnormality. Pulmonary: No significant abnormality. Neurological: No significant abnormality. Gastrointestinal: No significant abnormality. ASA Score: per Anesthesia Sedation/Anesthesia Plan: per Anesthesia The risks and complications of the procedure have been explained to the patient. Informed consent was signed. Impression and plan: Will proceed with the planned procedure for the reasons stated above. documented in this encounter Procedure Notes * Devin Miller MD - 08/31/2021 10:04 AM CDTAssociated Order(s): EUS GI ENDOSCOPY [facility] Patient Name: Jluian Sauer Procedure Date: 08/31/2021 10:04 AM Date of : 1975 Admit Type: Outpatient Age: 46 Gender: Female Attending MD: Devin Miller M.D. Room: [facility]COPY ROOM 1 Note Status: Finalized Procedure: Upper EUS Indications: Abdominal pain, elevated lipase levels, ? Pancreatitis Referring MD: Bhupinder Tobias MD Providers: Devin Miller M.D. Medicines: Monitored Anesthesia Care Complications: No immediate complications. Estimated Blood Loss: Estimated blood loss: none. Procedure: Pre-Anesthesia Assessment: - The risks and benefits of the procedure and the sedation options and risks were discussed with the patient. All questions were answered and informed consent was obtained. - Immediately prior to administration of medications, the patient was re-assessed for adequacy to receive sedatives. The risks, benefits and alternatives were discussed and informed consent was obtained. The Olympus curved linear array therapeutic endosonoscope [id number] was introduced through the and advanced to the GIF H190 [id number] endoscope was introduced through the and advanced to the upper EUS was accomplished without difficulty. The patient tolerated the procedure well. Findings: ENDOSCOPIC FINDING: : The examined esophagus was normal. Diffuse moderately erythematous mucosa without bleeding was found in the entire examined stomach. Biopsies were taken with a cold forceps for histology. The examined duodenum was normal. ENDOSONOGRAPHIC FINDING: : There was no sign of significant endosonographic abnormality in the ampulla. There was no sign of significant endosonographic abnormality in the common bile duct. The maximum diameter of the duct was 3 mm. There was no sign of significant endosonographic abnormality in the left lobe of the liver. There was no sign of significant endosonographic abnormality in the main pancreatic duct and entire pancreas. The pancreatic duct measured up to 2 mm in diameter. No pathologic lymphadenopathy seen. Impression: - Normal esophagus. - Erythematous mucosa in the stomach. Biopsied. - Normal examined duodenum. - There was no sign of significant pathology in the ampulla. - There was no sign of significant pathology in the common bile duct. - There was no evidence of significant pathology in the left lobe of the liver. - There was no sign of significant pathology in the main pancreatic duct and entire pancreas. Recommendation: - Observe patient's clinical course. - Await path results. - Return to referring physician as previously scheduled. - Increase PPI to twice daily. - Given that the pancreas looks normal on CT and EUS as well as lipase levels not reaching 2x normal. It is doubtful that your pancreas is the source of your abdominal pain. Attending Participation: I personally performed the entire procedure. Electronically signed by Devin Miller M.D. Devin Miller M.D. 08/31/2021 11:41:51 AM . Number of Addenda: 0 Note Initiated On: 08/31/2021 10:04 AM Recognized by the [place] [employer] for promoting quality in endoscopy documented in this encounter Plan of Treatment Pending Results Name Type Priority Associated Diagnoses Date /Time US Endoscopy Endo Imaging Procedure IP Routine Acute pancreatitis, unspecified complication status, unspecified pancreatitis type 08/31/2021 10:55 AM CDT documented as of this encounter Procedures Procedure Name Priority Date/Time Associated Diagnosis Comments US ENDOSCOPIC IP Routine 08/31/2021 10:55 AM CDT Acute pancreatitis, unspecified complication status, unspecified pancreatitis type SURGICAL PATHOLOGY Routine 08/31/2021 10:39 AM CDT Acute pancreatitis, unspecified complication status, unspecified pancreatitis type ENDO ADD ON ESOPHAGOGASTRODUODENOSCOPY BIOPSY 08/31/2021 10:31 AM CDT Acute pancreatitis, unspecified complication status, unspecified pancreatitis type POCT HCG, URINE Routine 08/31/2021 10:23 AM CDT EUS 08/31/2021 10:04 AM CDT documented in this encounter Results * Surgical pathology (08/31/2021 10:39 AM CDT) Tissue (Gastric/Stomach biopsy) 08/31/2021 10:39 AM CDT Narrative PATHOLOGY [facility] - 09/01/2021 11:52 PM CDT EPIC results best viewed via link to PDF [facility] [place] [address] Note to Patients: This report may contain a detailed description of human tissue sent by a health care provider to the laboratory for pathologic evaluation. The content of this report is essential for diagnosis and may provide important critical findings. This information may be unfamiliar to patients to review without a medical professional present. It is advised that the patient review this report in the presence of a health care provider who can answer questions and explain the details. SURGICAL PATHOLOGY REPORT FINAL Patient Name: ?? JULIAN SAUER Gender: ??F : ??1975 (Age: 46) Address: ??[address] [place] [address] ??[id number] Hospital #: ??[id number] Taken:08/31/2021 Received:08/31/2021 Reported: 09/01/2021 Patient Type: [facility] SDS ?? Service: Gastro Location: Physician(s): ??Devin Miller M.D. Bhupinder Tobias M.D. Diagnosis: A. ??Stomach, random, endoscopic biopsy ? - Antral and oxyntic mucosa with foveolar hyperplasia, suggestive of reactive gastropathy/chemical gastropathy - No significant acute or chronic gastritis ? - No Helicobacter pylori by H&E sections - No intestinal metaplasia, dysplasia, or malignancy fnk/09/01/2021 07:52 By this signature, I attest that the above diagnosis is based upon my personal examination of the slides(and/or other material indicated in the diagnosis). Apolinar Wilkinson MD Report Electronically Reviewed and Signed Out By ??Apolinar Wilkinson MD 09/01/2021 23:52:39 Microscopic Description and Comment: Microscopic examination substantiates the above cited diagnosis. The history of pancreatitis in this patient is noted. ??The gastric biopsies in this case show features suggestive of chemical gastropathy, which could be related to bile reflux. ??Bile reflux is common in patients with pancreatitis, due to duodenal obstruction related to inflammatory changes adjacent to the duodenum. ??Clinical correlation is suggested. NIECY Peterson History: The patient is a 46-year-old woman presenting with acute pancreatitis. ??Operative procedure: upper GI endoscopy, with gastric biopsy. Specimen(s) Received: A: Random stomach Gross Description: A. ??The specimen is received in a single formalin filled container labeled with the patient's name and random stomach BX , and consists of multiple baird-pink irregular fragment(s) of soft-tissue measuring 0.7 x 0.5 x 0.2 cm in aggregate. ??Labeled A1. ?? Jar 0. sxst/08/31/2021 14:52 PA(s): Ghazala Blake By this signature, I attest that the above diagnosis is based upon my personal examination of the slides(and/or other material). Addenda/Procedures The performance characteristics of some immunohistochemical stains, fluorescence in-situ hybridization tests and immunophenotyping by flow cytometry cited in this report (if any) were determined by the Surgical Pathology and Flow Cytometry Departments at [facility] as part of an ongoing director quality systems program and in compliance with federally mandated [...] a high complexity laboratory under CLIA '88. ??The FDA has determined that such clearance or approval is not necessary. ??This test is used for clinical purposes. ??It should not be regarded as investigational or for research. ??Nevertheless, federal rules concerning the medical use of analyte specific reagents require that the following disclaimer be attached to the report: This test was developed and its performance characteristics determined by the Surgical Pathology and Flow Cytometry Departments of [facility]. ??It has not been cleared or approved by the U. S. Food and Drug Administration. IMAGES AND SCANNED DOCUMENTS, IF INCLUDED, ONLY VIEWABLE IN PDF VERSION OF REPORT Devin Miller MD LAB PATHOLOGY ORDERABLES F inal Result PATHOLOGY [facility] [address]rd Floor [place], [place] [phone] * POCT hCG, urine (08/31/2021 10:23 AM CDT) HCG, ur, POC Negative Lot Number [id number]\ QC Backgroud Clear Acceptable QC Control Line Acceptable Urine 08/31/2021 10:2 3 AM CDT Historical Provider POINT OF CARE TEST ORDERA BLES Final Result * EUS (08/31/2021 10:04 AM CDT) Anatomical Region Laterality Modality Other Narrative Procedure Note Devin Miller MD - 08/31/2021 10:04 AM CDT GI ENDOSCOPY [facility] Patient Name: Julian Sauer Procedure Date: 08/31/2021 10:04 AM Date of : 1975 Admit Type: Outpatient Age: 46 Gender: Female Attending MD: Devin Miller M.D. Room: [facility] END[facility]COPY ROOM 1 Note Status: Finalized Procedure: Upper EUS Indications: Abdominal pain, elevated lipase levels, ?Pancreatitis Referring MD: Bhupinder Tobias MD Providers: Devin Miller M.D. Medicines: Monitored Anesthesia Care Complications: No immediate complications. Estimated Blood Loss: Estimated blood loss: none. Procedure: Pre-Anesthesia Assessment: - The risks and benefits of the procedure and the sedation options and risks were discussed with the patient. All questions were answered and informed consent was obtained. - Immediately prior to administration ofmedications, the patient was re-assessed for adequacy to receive sedatives. The risks, benefits and alternatives were discussed and informed consent was obtained. The Olympuscurved linear array therapeutic [id number] was introduced through the and advanced to the GIF H190 [id number] endoscope was introduced through theand advanced to the upper EUS was accomplished without difficulty. The patient tolerated the procedurewell. Findings: ENDOSCOPIC FINDING: : The examined esophagus was normal. Diffuse moderately erythematous mucosa without bleeding was found inthe entire examined stomach. Biopsies were taken with a cold forceps for histology. The examined duodenum was normal. ENDOSONOGRAPHIC FINDING: : There was no sign of significant endosonographic abnormality in the ampulla. There was no sign of significant endosonographic abnormality in the common bile duct. The maximum diameter of the duct was 3 mm. There was no sign of significant endosonographic abnormality in theleft lobe of the liver. There was no sign of significant endosonographic abnormality in themain pancreatic duct and entire pancreas. The pancreatic duct measured upto 2 mm in diameter. No pathologic lymphadenopathy seen. Impression: - Normal esophagus. - Erythematous mucosa in the stomach. Biopsied. - Normal examined duodenum. - There was no sign of significant pathology in the ampulla. - There was no sign of significant pathology in the common bile duct. - There was no evidence of significant pathology in the left lobe of the liver. - There was no sign of significant pathology in the main pancreatic duct and entire pancreas. Recommendation: - Observe patient's clinical course. - Await path results. - Return to referring physician as previously scheduled. - Increase PPI to twice daily. - Given that the pancreas looks normal on CT andEUS as well as lipase levels not reaching 2x normal. Itis doubtful that your pancreas is the source of your abdominal pain. Attending Participation: I personally performed the entire procedure. Electronically signed by Devin Miller M.D. Devin Miller M.D. 08/31/2021 11:41:51 AM . Number of Addenda: 0 Note Initiated On: 08/31/2021 10:04 AM Recognized by the [employer] for promoting quality in endoscopy Devin Miller MD ENDOSCOPY PROCEDURES Final Result documented in this encounter Visit Diagnoses Diagnosis Acute pancreatitis, unspecified complication status, unspecified pancreatitis type Acute pancreatitis, unspecified complication status, unspecified pancreatitis type documented in this encounter Admitting Diagnoses Diagnosis Acute pancreatitis documented in this encounter Administered Medications Inactive Administered Medications - up to 3 most recent administrations Medication Order MAR Action Action Date Dose Rate Site sodium chloride 0.9% infusion 30 mL/hr, intravenous, Continuous, Starting on Leydi 08/31/21 at 1100 Rate/Dose Verify 08/31/2021 10:31 AM CDT 30 mL/hr New Bag 08/31/2021 10:29 AM CDT 30 mL/hr 30 mL/hr documented in this encounter Discontinued Medications Medication Sig Discontinue Reason Start Date End Da te linaclotide (LINZESS) 145 mcg capsule Take 145 mcg by mouth Therapy completed 09/15/2015 08/31/2021 sucralfate (CARAFATE) suspension 1 gram/10 mL TAKE 10 ML BY MOUTH FOUR TIMES DAILY BEFORE MEALS AND NIGHTLY Therapy completed 10/15/2017 08/31/2021 documented as of this encounter Active and Recently Administered Medications Times are shown in CDT. Continuous Medication Order 08/29/2021 08/30/2021 08/31/2021 sodium chloride 0.9% infusion 30 mL/hr, intravenous, Continuous, Starting on Leydi 08/31/21 at 1100 1029 (New Bag - Prov ider: Cheli Cannon, ANTHONY)1031 (Rate/Dose Verify - Provider: Mily Dyer CRNA)1130 (Stopped - Provider: Danielle Montes, ANTHONY) PRN Medication Order 08/29/2021 08/30/2021 08/31/2021 ondansetron (ZOFRAN) injection 4 mg 4 mg, intravenous, Administer over 2 Minutes, Every 30 min PRN, nausea, vomiting, Starting on Leydi 08/31/21 at 1114, For 2 doses, Recovery (GI), Indications: Nausea and Vomiting documented in this encounter Orders Medications Ordered That Doron ht Not Have Been Administered Count Last Ordered Date First Ordered Date ondansetron (ZOFRAN) injection 4 mg 1 08/31 Discharge Count Last Ordered Date First Orde red Date DISCHARGE PATIENT 1 08/31/2021 documented in this encounter Care Teams Keypunch Operators Supervisor Relationship Specialty Start Date End Date Bhupinder Tobias MD [address] [place] [address] PCP - General Internal Medicine 06/03/20 Cash Heath III, MD [address] [place] [address] Rheumatology 04/12/17 Jorge Aguiar MD [address] [place] [address] Consulting Physician Urology 11/10/20 Khoa Arias MD [address] [place] [address] Referring Physician Gastroenterology 03/20/21 documented as of this encounter
--- OUTSIDE RECORDS SUMMARY | 2024-04-29 19:22 | XMS_ITS | Encounter Summary ---
Author Organization [facility] Address [address] [place] [address] Phone Care Team Providers Care Therapist Radiation Name Role Phone Kumar CARRILLO MD, Cash Howard Unavailable [phone] Bhupinder Tobias MD Primary Care Provider [phone] Jorge Aguiar MD Unavailable [phone] Khoa Arias MD Unavailable [phone] Reason for Visit * Reason Onset Date Comments results and recs 09/04/2021 Encounter Details Date Type Department Care Team (Late st Contact Info) Description 09/04/2021 Telephone [facility] Gastroenterology [address] [facility] [address] [place] [address] Nikki Sterling RN results and recs Social History Tobacco Use Types Packs/Day Years [...] on file 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 Reviewed following results and recommendations per Dr. Miller over the phone. Patient verbalized understanding and agreed to plan of care. Patient was given ample time to ask questions. Patient will call us with any additional questions or concerns in the future. Devin Miller MD Rapps, Kristie Marie, RN She has gastric inflammation. Should double ppi for now. documented in this encounter Plan of Treatment Not on file documented as of this encounter Visit Diagnoses Not on filedocumented in this encounter Care Teams Therapist Radiation Relationship Specialty Start Date End Date Bhupinder Tobias MD [address] [facility] [address] [place] [address] PCP - General Internal Medicine 06/03/20 Cash Heath III, MD [address] [facility] [address] [place] [address] Rheumatology 04/12/17 Jorge Aguiar MD [address] [place] [address] Consulting Physician Urology 11/10/20 Khoa Arias MD [address] [place] [address] Referring Physician Gastroenterology 03/20/21 documented as of this encounter
--- OUTSIDE RECORDS SUMMARY | 2024-04-29 19:22 | XMS_ITS | Encounter Summary ---
Author Organization [facility] Healthcare Address [address] [place] [address] Care Team Providers Care Boat Assembler Name Role Phone Kumar CARRILLO MD, Cash Hoawrd Unavailable [phone] Bhpuinder Tobias MD Primary Care Provider [phone] Jorge Aguiar MD Unavailable [phone] Khoa Arias MD Unavailable [phone] Reason for Visit * Auth/Cert Specialty Diagnoses / Procedures Referred By Kaylynn t Referred To Contact Diagnoses Acute pancreatitis, unspecified complication status, unspecified pancreatitis type Acute pancreatitis, unspecified complication status, unspecified pancreatitis type [K85.90] Procedures WI EDG US EXAM SURGICAL ALTER STOM DUODENUM/JEJUNUM US Endoscopy ESOPHAGOGASTRODUODENOSCOPY Referral ID Status Reason Start Date Expiration Date Visits Re quested Visits Authorized [id number] 1 1 Encounter Details Date Type Department Care Team (Late st Contact Info) Description 08/31/2021 10:31 AM CDT Anesthesia Event [facility] [place] [address] [facility] [address] [place] [address] Renuka Mcdonald MD [address] [place] [address] Mily Dyer CRNA [address] [place] [address] [phone] (work) Anesthesia Record Procedure Summary Procedure Name Responsible Anesthesiologist Anesthesia Start Time Anesthesia Stop Time US Endoscopy Renuka Mcdonald MD 08/31/21 1031 04/12 1100 Events Date Time Event Comment 08/31/2021 1031 An Start 1031 An Start Data 1031 In Room 1036 An Data Art 1036 Start Supplemental O2 1036 Patient Positioned Laterally 1036 Bite Block Placed 1036 An Induction The patient was reevaluated immediately before moderate or deep sedation use and before anesthesia induction. 1037 Anesthesia Ready 1037 Proc Start 1041 1051 Proc Fin 1055 Out of Room 1056 an stop data 1100 Handoff to RN I completed my handoff to the receiving nurse during which we: 1. Patient identified 2. Responsible provider identified 3. Pertinent medical history reviewed 4. Procedure type and surgical course discussed 5. Intraoperative anesthetic management and any significant issues discussed 6. Expectations and concerns for postop period discussed 7. Questions solicited from receiving nurse 8. Patient disposition at the time of handoff: No value filed. 1100 An Stop Meds Name Total midazolam PF 2 mg lidocaine (cardiac) syringe 2 % 100 mg propofol 170 mg propofol 213.36 mg sodium chloride 0.9% infusion 0 mL * Agents Name O2% N2O O2 N2O Air * Blood No blood administrations on file. 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 Gender Identity Female 08/14/2022 11:32 AM CDT Sexual Orientation Straight 02/13/2023 7: 01 AM CDT documented as of this encounter OR Notes * Anesthesia Postprocedure Evaluation - Renuka Mcdonald MD - 08/31/2021 11:40 AM CDT Patient: Madalyn Smith Procedure Summary Date: 08/31/21 Room / Location: [facility] ENDOSCOPY ROOM 1 / [facility] ENDOSCOPY Anesthesia Start: 1031 Anesthesia Stop: 1100 Procedures: US Endoscopy (N/A ) ENDO ADD ON ESOPHAGOGASTRODUODENOSCOPY BIOPSY (N/A ) Diagnosis: Acute pancreatitis, unspecified complication status, unspecified pancreatitis type (Acute pancreatitis, unspecified complication status, unspecified pancreatitis type [K85.90]) Providers: Devin Miller MD Responsible Provider: Renuka Mcdonald MD Anesthesia Type: general/TIVA ASA Status: 2 Anesthesia Type: No value filed. Last vitals BP 127/77 (BP Location: Left arm, Patient Position: Lying) Pulse 65 Temp 36.5 ??C (97.7 ??F) (Temporal) Resp 14 SpO2 94% Anesthesia Post Evaluation Patient location during evaluation: PACU Patient participation: complete - patient participated Level of consciousness: fully awake Pain score: 0 Pain management: adequate Airway patency: adequate Evidence of recall: no Cardiovascular status: acceptable Respiratory status: acceptable Hydration status: acceptable Pt is: normothermic Nausea/Vomiting status: none No complications documented. * Anesthesia Preprocedure Evaluation - Renuka Mcdonald MD - 08/31/2021 10:41 AM CDT Images from the original note were not included. Anesthesia Evaluation Madalyn Smith is a 46 y.o. female Procedure(s): US Endoscopy ENDO ADD ON ESOPHAGOGASTRODUODENOSCOPY BIOPSY Pre-Op Diagnosis Codes: * Acute pancreatitis, unspecified complication status, unspecified pancreatitis type [K85.90] Patient Active Problem List Diagnosis ??? Kidney stones ??? Migraine ??? Diverticulosis of colon without diverticulitis ??? Encounter for long-term (current) use of medications ??? Abnormal LFTs ??? Hypermobile joints ??? Psoriatic arthritis (HCC) ??? Meredith-Danlos disease ??? Urinary tract infection ??? Rash ??? Osteoporosis without current pathological fracture ??? Frequent infections ??? Primary osteoarthritis of both knees ??? Trochanteric bursitis of right hip ??? Flu vaccine need ??? Chronic pain of both knees ??? Trochanteric bursitis of left hip ??? Abdominal pain ??? Acute pancreatitis ??? 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 syndrome with constipation Past Medical History: Diagnosis Date ??? Diverticulitis ??? Meredith-Danlos syndrome ??? Hemorrhoid ??? IBS (irritable bowel syndrome) ??? Kidney stone ??? Migraine ??? RA (rheumatoid arthritis) (HCC) Past Surgical History: Procedure Laterality Date ??? SECTION ??? COLONOSCOPY ??? FACIAL SURGERY ??? KNEE SURGERY knee surgery ??? LITHOTRIPSY ??? TONSILLECTOMY ??? UPPER GASTROINTESTINAL ENDOSCOPY OB History 2 Para 2 Term AB Living SAB IAB Ectopic Multiple Live Births Allergies Allergen Reactions ? ? Ibuprofen Nausea & Vomiting Stomach ulcers - tablets - okay with IV Med List Status: Nurse Complete Set By: Cheli Cannon RN at 08/31/2021 10:15 AM Taking? Last Dose Start Date End Date Provider alendronate (FOSAMAX) 70 mg tablet More than a month 09/02/18 -- John Montero MD ALPRAZolam (XANAX) 1 mg tablet 08/30/2021 08/03/21 -- John Montero MD AMITIZA 24 mcg capsule 08/30/2021 12/15/18 -- John Montero MD buPROPion XL (WELLBUTRIN XL) 300 mg 24 hr tablet 08/30/2021 -- -- John Montero MD diclofenac sodium 20 mg/gram /actuation(2 %) solution in metered-dose pump 10/19/19 -- Miriam Frye PA Apply 40 mg topically 2 (two) times a day dicyclomine (BENTYL) 10 mg capsule 08/30/2021 07/23/18 -- John Montero MD DULoxetine DR (CYMBALTA) 60 mg capsule 08/30/2021 -- -- John Montero MD HYDROcodone-acetaminophen (NORCO) 5-325 mg per tablet 08/30/2021 06/30/21 -- Librado Peterson MD Take 1 tablet by mouth every 4 (four) hours as needed for pain Do not exceed 8 tablets/day. Patient taking differently: Take 1 tablet by mouth every 4 (four) hours as needed for pain Do not exceed 8 tablets/day. Patient reports that she is now on 10-325 leflunomide (ARAVA) 20 mg tablet 08/30/2021 05/05/21 -- Ghazala Ulloa PA Take 1 tablet (20 mg total) by mouth daily Notes: Supervising MD is Cash Heath MD. Increased dose ondansetron ODT (ZOFRAN-ODT) 4 mg disintegrating tablet Unknown 07/23/21 -- Sophia Bahena MD Dissolve 1 tablet for mild to moderate nausea or vomiting or 2 tablets for severe nausea or vomiting oral twice a day as needed. ondansetron ODT (ZOFRAN-ODT) 8 mg disintegrating tablet 08/30/2021 05/12/21 -- Cash Heath III, MD DISSOLVE 1 TABLET(8 MG) ON THE TONGUE EVERY 8 HOURS NEEDED FOR NAUSEA OR VOMITING pantoprazole DR (PROTONIX) 40 mg EC tablet 08/30/2021 12/21/15 -- ProviderJohn MD polyethylene glycol (MIRALAX) 17 gram/dose powder 08/30/2021 12/29/18 -- ProviderJohn MD potassium citrate ER (UROCIT-K) 15 mEq tablet extended release 08/30/2021 12/19/18 -- John Montero MD propranoloL (INDERAL) 10 mg tablet 08/31/2021 08/03/21 -- ProviderJohn MD Saccharomyces boulardii (FLORASTOR) 250 mg capsule 08/30/2021 02/02/17 -- John Montero MD SUMAtriptan (IMITREX) 50 mg tablet Past Week 07/09/16 -- John Montreo MD Notes: Received from: External Pharmacy tamsulosin (FLOMAX) 0.4 mg extended release capsule More than a month 06/30/21 -- Gennaro Martinez,POTATO CHIP COOKER MACHINE Take 1 capsule (0.4 mg total) by mouth daily traZODone (DESYREL) 100 mg tablet 08/30/2021 -- -- John Montero MD triamcinolone (KENALOG) 0.1 % paste 02/06/21 -- Miriam Frye PA Apply 0.5 inches to teeth 2 (two) times a day Current Facility-Administered Medications: ??? sodium chloride 0.9% infusion, 30 mL/hr, intravenous, Continuous, Last Rate: 30 mL/hr at 08/31/21 1031, Rate Verify at 08/31/21 1031 Facility-Administered Medications Ordered in Other Encounters: ??? lidocaine (cardiac) (XYLOCAINE) preservative free injection, , intravenous, PRN, 100 mg at 08/31/21 1036 ??? midazolam (VERSED) 1 mg/mL preservative free injection, , intravenous, PRN, 2 mg at 08/31/21 1036 ??? propofoL (DIPRIVAN) 10 mg/mL IV, , intravenous, PRN, 100 mg at 08/31/21 1036 ??? propofoL (DIPRIVAN) 10 mg/mL IV, , intravenous, Continuous PRN, Last Rate: 80.01 mL/hr at 08/31/21 1036, 150 mcg/kg/min at 08/31/21 1036 Social History Tobacco Use Smoking Status Former Smoker ??? Quit date: 2012 ??? Years since quittin.3 Smokeless Tobacco Never Used Substance and Sexual Activity Alcohol Use No Substance and Sexual Activity Drug Use Never Family History Problem Relation Age of [...] Neg Hx ??? Liver cancer Neg Hx Vitals: 08/31/21 1020 BP: 120/81 Pulse: 80 Resp: 22 Temp: 36.1 ??C (97 ??F) SpO2: 98% PT: No results found for requested labs within last 720 hours. INR: No results found for requested labs within last 720 hours. APTT: No results found for requested labs within last 720 hours. Hgb A1C: No results found for requested labs within last 720 hours. CBC RBC: No results found for requested labs within last 720 hours. RDW: 08/10/2021: 13.8 % MCHC: 08/10/2021: 32.2 g/dL MCH: 08/10/2021: 29.1 pg MCV: 08/10/2021: 90.4 fL Hct: 08/10/2021: 42.3 % Hgb: 08/10/2021: 13.6 g/dL WBC: 08/10/2021: 11.3 Thousand/uL (H) MPV: 08/10/2021: 9.4 fL Platelets: 08/10/2021: 311 Thousand/uL RDW CV: No results found for requested labs within last 720 hours. RDW Sd: No results found for requested labs within last 720 hours. BMP Glucose: 08/10/2021: 84 mg/dL Calcium: 08/10/2021: 9.1 mg/dL Sodium: 08/10/2021: 137 mmol/L Potassium: 08/10/2021: 3.9 mmol/L CO2: 08/10/2021: 29 mmol/L Chloride: 08/10/2021: 102 mmol/L BUN: 08/10/2021: 11 mg/dL Creatinine: 08/10/2021: 0.91 mg/dL DOS Physical Exam Medical history, medications, and allergies reviewed. Attestation: With today's edits, I endorse the findings of the procedural assessment dated: 08/31/2021. Airway Exam: Mallampati: III Cervical ROM: FROM TM distance: >4 Cardiovascular Exam: Rate: regular Rhythm: regular Negative for Murmur Pulmonary Exam: LCTA, bilat EENT Exam: trachea midline Dental Exam: Appears intact Current state: Patient's current state is cooperative. Anesthesia Plan ASA 2 My patient is approved for the Anesthesia Controlled Medication protocol when under care of a CUTTER OPERATOR Planned anesthesia: General/TIVA Informed Consent: Discussed plan with CUTTER OPERATOR. Anesthesia plan and risks discussed with patient. Consent and Attending signature: I and/or my designee have discussed the anesthesia plan, benefits, possible alternatives, parental presence at time of induction (if indicated), and clinically relevant risks that may include dental injury, unintentional awareness, and/or other complications. The patient and/or parent/legal guardian understand, and agree to proceed. All questions answered. documented in this encounter Plan of Treatment Not on file documented as of this encounter Visit Diagnoses Not on filedocumented in this encounter Administered Medications Inactive Administered Medications - up to 3 most recent administrations Medication Order MAR Action Action Date Dose Rate Site lidocaine (cardiac) (XYLOCAINE) preservative free injection intravenous, As needed, Starting on Leydi 08/31/21 at 1036, Anesthesia Intra-op, Indications: Ventricular ArrhythmiasIndications:Ventricula r Arrhythmias Given 08/31/2021 10:36 AM CDT 100 mg midazolam (VERSED) 1 mg/mL preservative free injection intravenous, Administer over 2 Minutes, As needed, Starting on Leydi 08/31/21 at 1036, Anesthesia Intra-op Given 08/31/2021 10:36 AM CDT 2 mg propofoL (DIPRIVAN) 10 mg/mL IV intravenous, As needed, Starting on Leydi 08/31/21 at 1036, Anesthesia Intra-op Given 08/31/2021 10:49 AM CDT 40 mg Given 08/31/2021 10:44 AM CDT 30 mg Given 08/31/2021 10:36 AM CDT 100 mg propofoL (DIPRIVAN) 10 mg/mL IV intravenous, Continuous PRN, Starting on Leydi 08/31/21 at 1036, Anesthesia Intra-op New Bag 08/31/2021 10:36 AM CDT 150 mcg/kg/min 80.01 mL/hr sodium chloride 0.9% infusion 30 mL/hr, intravenous, Continuous, Starting on Leydi 08/31/21 at 1100 Rate/Dose Verify 08/31/2021 10:31 AM CDT 30 mL/hr New Bag 08/31/2021 10:29 AM CDT 30 mL/hr 30 mL/hr documented in this encounter Care Teams Boat Assembler Relationship Specialty Start Date End Date Bhupinder Tobias MD [address] [address] PCP - General Internal Medicine 06/03/20 Cash Heath III, MD [address] [facility] [address] [place] [address] Rheumatology 04/12/17 Jorge Aguiar MD [address] [place] [address] [place] [address] Consulting Physician Urology 11/10/20 Khoa Arias MD [address] [place] [address] [place] [address] Referring Physician Gastroenterology 03/20/21 documented as of this encounter
--- OUTSIDE RECORDS SUMMARY | 2024-04-29 19:22 | XMS_ITS | Encounter Summary ---
Author Organization [facility] Address [address] [place] [address] Phone Care Team Providers Care Industrial Services Worker Name Role Phone Kumar CARRILLO MD, Cash Howard Unavailable [phone] Bhupinder Tobias MD Primary Care Provider [phone] Jorge Aguiar MD Unavailable [phone] Khoa Arias MD Unavailable [phone] Encounter Details Date Type Department Care Team (Late st Contact Info) Description 07/05/2022 Orders Only [facility] Scanning, Provider Social History Tobacco Use Types Packs/Day Years [...] on file 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 Gender Identity Female 08/14/2022 11:32 AM CDT Sexual Orientation Straight 02/13/2023 7: 01 AM CDT documented as of this encounter Plan of Treatment Not on file documented as of this encounter Procedures Procedure Name Priority Date/Time Associated Diagnosis Comments SCAN - RADIOLOGY/IMAGING 07/05/2022 2:47 PM CDT documented in this encounter Results * SCAN - RADIOLOGY/IMAGING (07/05/2022 2:47 PM CDT) Anatomical Region Laterality Modality Other us Provider Scanning Final Result documented in this encounter Visit Diagnoses Not on filedocumented in this encounter Care Teams Industrial Services Worker Relationship Specialty Start Date End Date Bhupinder Tobias MD [address] [facility] [address] [place] [address] PCP - General Internal Medicine 06/03/20 Cash Heath III, MD [address] [facility] [address] [place] [address] Rheumatology 04/12/17 Jorge Aguiar MD [address] [facility] [address] [place] [address] Consulting Physician Urology 11/10/20 Khoa Arias MD [address] [facility] [address] [place] [address] Referring Physician Gastroenterology 03/20/21 documented as of this encounter
--- OUTSIDE RECORDS SUMMARY | 2024-04-29 19:22 | XMS_ITS | Clinical Summary ---
Author Organization [id number] Address [address] [place] [address] Phone Care Team Providers Care Program Checker Name Role Phone Kumar CARRILLO MD, John J. Unavailable [phone] Bhupinder Tobias MD Primary Care Provider [phone] Jorge Aguiar MD Unavailable [phone] Khoa Arias MD Unavailable [phone] Allergies No known active allergies Medications SUMAtriptan [...] (08/30/2021): Added automatically from request for surgery [id number] Abdominal pain 03/31/2021 Assessment & Plan (06/28/2021 10:08 AM ELEVATOR SERVICE TECHNICIAN): Recently dx with mild pancreatitis. Needs lipase/amylase rechecked. Still has some upper abd pain. Advised pt to f/u with GI also. Assessment & Plan (06/19/2021 8:52 AM ELEVATOR SERVICE TECHNICIAN): Had abd pain early this month, check amyl/lip and ua. Pain has resolved. Assessment & Plan (05/05/2021 10:13 PM ELEVATOR SERVICE TECHNICIAN): Having abd pain, bloating, constipation. On meds for IBS and also using suppositories to have BM. Incidental findings of mesenteric fat stranding (adenitis or panniculitis) on abd CT. Awaiting further eval by Dr. Arias. Assessment & Plan (03/31/2021 8:44 AM ELEVATOR SERVICE TECHNICIAN): Elevated lipase. Imuran stopped. Pt advised to [...] 04/23/2019 Assessment & Plan (03/24/2020 7:29 AM ELEVATOR SERVICE TECHNICIAN): Normal serum immunoglobulins. Assessment & Plan (01/21/2020 [...] immunoglobulins. Assessment & Plan (04/23/2019 1:46 PM ELEVATOR SERVICE TECHNICIAN): Check serum immunoglobulins. Osteoporosis without current pathological fractu re 09/18/2018 Assessment & Plan (08/10/2021 8:09 AM CDT): bds checked by pcp in past, is taking ca and vit d and pcp checked vit D and PTH per pt was wnl. Her pcp started her on alendronate 70mg po qweek. Taking ca + vit d 1200mg qd. Assessment & Plan (06/15/2021 10:46 AM ELEVATOR SERVICE TECHNICIAN): bds checked by pcp in past, is taking ca and vit d and pcp checked vit D and PTH per pt was wnl. Her pcp started her on alendronate 70mg po qweek. Taking ca + vit d 1200mg qd. Assessment & Plan (06/09/2021 8:30 AM ELEVATOR SERVICE TECHNICIAN): bds checked by pcp in past, is taking ca and vit d and pcp checked vit D and PTH per pt was wnl. Her pcp started her on alendronate 70mg po qweek. Taking ca + vit d 1200mg qd. Assessment & Plan (05/04/2021 8:19 AM ELEVATOR SERVICE TECHNICIAN): bds checked by pcp in past, is [...] qd. Assessment & Plan (06/03/2020 7:38 AM ELEVATOR SERVICE TECHNICIAN): bds checked by pcp in past, is taking ca and vit d and pcp checked vit D and PTH per pt was wnl. Her pcp started her on alendronate 70mg po qweek. Taking ca + vit d 1200mg qd. Assessment & Plan (03/25/2020 8:34 AM ELEVATOR SERVICE TECHNICIAN): bds checked by pcp in past, is taking ca and vit d and pcp checked vit D and PTH per pt was wnl. Her pcp started her on alendronate 70mg po qweek. Taking ca + vit d 1200mg qd. Assessment & Plan (03/24/2020 7:29 AM ELEVATOR SERVICE TECHNICIAN): bds checked by pcp in past, is [...] qd. Assessment & Plan (04/20/2019 4:56 PM ELEVATOR SERVICE TECHNICIAN): bds checked by pcp in past, is [...] pcp. Assessment & Plan (06/03/2020 7:37 AM ELEVATOR SERVICE TECHNICIAN): Was advised in past to get chest CT to r/o aortic aneurysm, to discuss with pcp. Assessment & Plan (03/25/2020 8:33 AM ELEVATOR SERVICE TECHNICIAN): Was advised in past to get chest CT to r/o aortic aneurysm, to discuss with pcp. Assessment & Plan (03/24/2020 7:29 AM ELEVATOR SERVICE TECHNICIAN): Was advised in past to get chest [...] pcp. Assessment & Plan (04/20/2019 4:57 PM ELEVATOR SERVICE TECHNICIAN): Advised to get chest CT to r/o aortic aneurysm, to discuss with pcp. Assessment & Plan (10/31/2018 7:38 AM CDT): Advised to get chest CT to r/o aortic aneurysm, to discuss with pcp. Encounter for long-term (current) use of medicat ions 01/31/2017 Assessment & Plan (05/28/2022 8:07 AM ELEVATOR SERVICE TECHNICIAN): Quant gold neg 12/2019 Hep B and [...] showed osteoporosis [facility] 08/2019---[facility] labs reveal positive anti-[employer] antibody which is likely a false positive due to negative ASHLEY. Her father had psoriasis, pt changed from ra to PsA on 03/25/2020. ?? Assessment & Plan (02/26/2022 8:16 AM ELEVATOR SERVICE TECHNICIAN): Quant gold neg 12/2019 Hep B and [...] showed osteoporosis [facility] 08/2019---[facility] labs reveal positive anti-[employer] antibody which is likely a false positive [...] showed osteoporosis [facility] 08/2019---[facility] labs reveal positive anti-[employer] antibody which is likely a false positive [...] showed osteoporosis [facility] 08/2019---[facility] labs reveal positive anti-[employer] antibody which is likely a false positive [...] showed osteoporosis [facility] 08/2019---[facility] labs reveal positive anti-[employer] antibody which is likely a false positive [...] showed osteoporosis [facility] 08/2019---[facility] labs reveal positive anti-[employer] antibody which is likely a false positive due to negative ASHLEY. Her father had psoriasis, pt changed from ra to PsA on 03/25/2020. ?? Assessment & Plan (06/28/2021 8:44 AM ELEVATOR SERVICE TECHNICIAN): Quant gold neg 12/2019 Hep B and [...] showed osteoporosis [facility] 08/2019---[facility] labs reveal positive anti-[employer] antibody which is likely a false positive due to negative ASHLEY. Her father had psoriasis, pt changed from ra to PsA on 03/25/2020. ?? Assessment & Plan (06/15/2021 10:44 AM ELEVATOR SERVICE TECHNICIAN): Quant gold neg 12/2019 Hep B and [...] showed osteoporosis [facility] 08/2019---[facility] labs reveal positive anti-[employer] antibody which is likely a false positive due to negative ASHLEY. Her father had psoriasis, pt changed from ra to PsA on 03/25/2020. ?? Assessment & Plan (06/09/2021 10:15 AM ELEVATOR SERVICE TECHNICIAN): Quant gold neg 12/2019 Hep B and [...] showed osteoporosis [facility] 08/2019---[facility] labs reveal positive anti-[employer] antibody which is likely a false positive due to negative ASHLEY. Her father had psoriasis, pt changed from ra to PsA on 03/25/2020. ?? Assessment & Plan (06/09/2021 8:29 AM ELEVATOR SERVICE TECHNICIAN): Quant gold neg 12/2019 Hep B and [...] showed osteoporosis [facility] 08/2019---[facility] labs reveal positive anti-[employer] antibody which is likely a false positive due to negative ASHLEY. Her father had psoriasis, pt changed from ra to PsA on 03/25/2020. ?? Assessment & Plan (05/04/2021 8:19 AM ELEVATOR SERVICE TECHNICIAN): Quant gold neg 12/2019 Hep B and [...] showed osteoporosis [facility] 08/2019---[facility] labs reveal positive anti-[employer] antibody which is likely a false positive due to negative ASHLEY. Her father had psoriasis, pt changed from ra to PsA on 03/25/2020. ?? Assessment & Plan (03/31/2021 9:20 AM ELEVATOR SERVICE TECHNICIAN): Quant gold neg 12/2019 Hep B and [...] showed osteoporosis [facility] 08/2019---[facility] labs reveal positive anti-[employer] antibody which is likely a false positive [...] showed osteoporosis [facility] 08/2019---[facility] labs reveal positive anti-[employer] antibody which is likely a false positive [...] showed osteoporosis [facility] 08/2019---[facility] labs reveal positive anti-[employer] antibody which is likely a false positive [...] showed osteoporosis [facility] 08/2019---[facility] labs reveal positive anti-[employer] antibody which is likely a false positive [...] showed osteoporosis [facility] 08/2019---[facility] labs reveal positive anti-[employer] antibody which is likely a false positive due to negative ASHLEY. Her father had psoriasis, pt changed from ra to PsA on 03/25/2020. ?? Assessment & Plan (06/03/2020 2:56 PM ELEVATOR SERVICE TECHNICIAN): Quant gold neg 12/2019 Hep B and [...] showed osteoporosis [facility] 08/2019---[facility] labs reveal positive anti-[employer] antibody which is likely a false positive due to negative ASHLEY. Her father had psoriasis, pt changed from ra to PsA on 03/25/2020. ?? Assessment & Plan (03/25/2020 3:03 PM ELEVATOR SERVICE TECHNICIAN): Quant gold neg 12/2019 HLA B27 negative [...] showed osteoporosis [facility] 08/2019---[facility] labs reveal positive anti-[employer] antibody which is likely a false positive due to negative ASHLEY. Her father had psoriasis, pt changed from ra to PsA on 03/25/2020. ?? Assessment & Plan (03/24/2020 7:28 AM ELEVATOR SERVICE TECHNICIAN): Quant gold neg 12/2019 HLA B27 negative [...] showed osteoporosis [facility] 08/2019---[facility] labs reveal positive anti-[employer] antibody which is likely a false positive [...] showed osteoporosis [facility] 08/2019---[facility] labs reveal positive anti-[employer] antibody which is likely a false positive [...] showed osteoporosis [facility] 08/2019---[facility] labs reveal positive anti-[employer] antibody which is likely a false positive [...] showed osteoporosis [facility] 08/2019---[facility] labs reveal positive anti-[employer] antibody which is likely a false positive [...] showed osteoporosis [facility] 08/2019---[facility] labs reveal positive anti-[employer] antibody which is likely a false positive [...] showed osteoporosis [facility] 08/2019---[facility] labs reveal positive anti-[employer] antibody which is likely a false positive [...] ?? Assessment & Plan (04/20/2019 4:59 PM ELEVATOR SERVICE TECHNICIAN): Quant gold neg 10/2018. TPMT nl 17 [...] 01/31/2017 Assessment & Plan (05/28/2022 8:05 AM ELEVATOR SERVICE TECHNICIAN): Images from the original note were not included. Had orencia infusion 05/02/2022. Continue orencia monotherapy. Off arava due to lipase elevation. Seeing gi at [facility] now. [place] and egd utd and nl in past year per pt. Had a nl pancreatic US recently with gi. Past serologies: [facility] panel 08/2019---labs reveal positive anti-[employer] antibody which is likely a false positive due to negative ASHLEY. ?? RF neg but has a possible family hx of psoriatic arthritis (father) so if she develops psoriasis diagnosis will change to psoriatic arthritis. Rt hand US 09/2019 showed: ??F/u 1 month. Assessment & Plan (02/26/2022 12:12 PM ELEVATOR SERVICE TECHNICIAN): Images from the original note were not included. High cdai. Her orencia is scheduled tomorrow. Continue orencia monotherapy. Off arava due to lipase elevation. Seeing gi at [facility] now. [place] and egd utd and nl in past year per pt. Had a nl pancreatic US recently with gi. She could be flaring up since her orencia is due tomorrow, overall she still feels that it is helping her joints. Past serologies: [facility] panel 08/2019---labs reveal positive anti-[employer] antibody which is likely a false positive [...] no complications or infections. Seeing gi at [facility] now for her elevated lipase. [place] and egd utd and nl in past year per pt. If labs stable will restart low dose arava 10mg po every day. To stay off orencia until recovered from rt knee surgery. Past serologies: [facility] panel 08/2019---labs reveal positive anti-[employer] antibody which is likely a false positive [...] orencia is scheduled tomorrow. Seeing gi at [facility] now. [place] and egd utd and nl in past year per pt. Due to burden of dz will give her a short course of oral prednisone. Discussed risks and se of systemic steroids. Past serologies: [facility] panel 08/2019---labs reveal positive anti-[employer] antibody which is likely a false positive [...] orencia is scheduled tomorrow. Seeing gi at [facility] now. [place] and egd utd and nl in past year per pt. Due to burden of dz will give her a short course of oral prednisone. Discussed risks and se of systemic steroids. Past serologies: [facility] panel 08/2019---labs reveal positive anti-[employer] antibody which is likely a false positive [...] gi dr arias for her pancreatitis . [place] and egd utd and nl in past year per pt. Seen with dr woodruff today. Past serologies: [facility] panel 08/2019---labs reveal positive anti-[employer] antibody which is likely a false positive due to negative ASHLEY. ?? RF neg but has a possible family hx of psoriatic arthritis (father) so if she develops psoriasis diagnosis will change to psoriatic arthritis. Rt hand US 09/2019 showed: ??F/u 1 month. Assessment & Plan (06/28/2021 10:22 AM ELEVATOR SERVICE TECHNICIAN): Images from the original note were not [...] Past serologies: [facility] panel 08/2019---labs reveal positive anti-[employer] antibody which is likely a false positive due to negative ASHLEY. ?? RF neg but has a possible family hx of psoriatic arthritis (father) so if she develops psoriasis diagnosis will change to psoriatic arthritis. Rt hand US 09/2019 showed: ??F/u 1 month. Assessment & Plan (06/15/2021 10:46 AM ELEVATOR SERVICE TECHNICIAN): Images from the original note were not [...] Past serologies: [facility] panel 08/2019---labs reveal positive anti-[employer] antibody which is likely a false positive due to negative ASHLEY. ?? RF neg but has a possible family hx of psoriatic arthritis (father) so if she develops psoriasis diagnosis will change to psoriatic arthritis. Rt hand US 09/2019 showed: ??F/u 1 month. Assessment & Plan (06/09/2021 10:16 AM ELEVATOR SERVICE TECHNICIAN): Images from the original note were not [...] Past serologies: [facility] panel 08/2019---labs reveal positive anti-[employer] antibody which is likely a false positive due to negative ASHLEY. ?? RF neg but has a possible family hx of psoriatic arthritis (father) so if she develops psoriasis diagnosis will change to psoriatic arthritis. Rt hand US 09/2019 showed: ??F/u 1 month. Assessment & Plan (06/09/2021 8:29 AM ELEVATOR SERVICE TECHNICIAN): Images from the original note were not [...] Past serologies: [facility] panel 08/2019---labs reveal positive anti-[employer] antibody which is likely a false positive due to negative ASHLEY. ?? RF neg but has a possible family hx of psoriatic arthritis (father) so if she develops psoriasis diagnosis will change to psoriatic arthritis. Rt hand US 09/2019 showed: ??F/u 1 month. Assessment & Plan (05/05/2021 10:11 PM ELEVATOR SERVICE TECHNICIAN): Images from the original note were not [...] Past serologies: [facility] panel 08/2019---labs reveal positive anti-[employer] antibody which is likely a false positive due to negative ASHLEY. ?? RF neg but has a possible family hx of psoriatic arthritis (father) so if she develops psoriasis diagnosis will change to psoriatic arthritis. Rt hand US 09/2019 showed: ??F/u 1 month. Assessment & Plan (03/31/2021 9:24 AM ELEVATOR SERVICE TECHNICIAN): Images from the original note were not [...] Past serologies: [facility] panel 08/2019---labs reveal positive anti-[employer] antibody which is likely a false positive [...] Past serologies: [facility] panel 08/2019---labs reveal positive anti-[employer] antibody which is likely a false positive [...] Past serologies: [facility] panel 08/2019---labs reveal positive anti-[employer] antibody which is likely a false positive [...] Past serologies: [facility] panel 08/2019---labs reveal positive anti-[employer] antibody which is likely a false positive [...] Past serologies: [facility] panel 08/2019---labs reveal positive anti-[employer] antibody which is likely a false positive due to negative ASHLEY. ?? RF neg but has a possible family hx of psoriatic arthritis (father) so if she develops psoriasis diagnosis will change to psoriatic arthritis. Rt hand US 09/2019 showed: ?? Assessment & Plan (06/03/2020 5:27 PM ELEVATOR SERVICE TECHNICIAN): Images from the original note were not [...] Past serologies: [facility] panel 08/2019---labs reveal positive anti-[employer] antibody which is likely a false positive due to negative ASHLEY. ?? RF neg but has a possible family hx of psoriatic arthritis (father) so if she develops psoriasis diagnosis will change to psoriatic arthritis. Rt hand US 09/2019 showed: ?? Assessment & Plan (03/25/2020 3:01 PM ELEVATOR SERVICE TECHNICIAN): Images from the original note were not [...] Past serologies: [facility] panel 08/2019---labs reveal positive anti-[employer] antibody which is likely a false positive due to negative ASHLEY. ?? RF neg but has a possible family hx of psoriatic arthritis (father) so if she develops psoriasis diagnosis will change to psoriatic arthritis. Rt hand US 09/2019 showed: ?? Assessment & Plan (03/24/2020 7:29 AM ELEVATOR SERVICE TECHNICIAN): Images from the original note were not included. [place] ai Wants to go back to sq orencia, gave pt 1 mo of samples and will start approval. Can't come in for iv orencia, her dad is on hospice. Increase imuran to 100mg bid, check cbc/cmp in 2 weeks and f/u in 1month. Past serologies: [facility] panel 08/2019---labs reveal positive anti-[employer] antibody which is likely a false positive [...] Past serologies: [facility] panel 08/2019---labs reveal positive anti-[employer] antibody which is likely a false positive [...] Past serologies: [facility] panel 08/2019---labs reveal positive anti-[employer] antibody which is likely a false positive [...] every day. [facility] panel 08/2019---labs reveal positive anti-[employer] antibody which is likely a false positive due to negative ASHLEY. ??Otherwise labs look good. ??No evidence of a new autoimmune connective tissue disease. Cont orencia sq and imuran 100mg po qhs. [place] better on iv orencia, will change from [...] since resolved. [facility] panel 08/2019---labs reveal positive anti-[employer] antibody which is likely a false positive [...] of orencia. [facility] panel 08/2019---labs reveal positive anti-[employer] antibody which is likely a false positive [...] of orencia. [facility] panel 08/2019---labs reveal positive anti-[employer] antibody which is likely a false positive [...] ?? Assessment & Plan (04/23/2019 1:46 PM ELEVATOR SERVICE TECHNICIAN): High cdai. On orencia IV but has [...] citrate. Assessment & Plan (06/03/2020 2:56 PM ELEVATOR SERVICE TECHNICIAN): Multiple kidney stones for over 10 yrs, 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 Urologist is keepin tabs on this. Urologist has him on potassium citrate. Urinary tract infection 09/09/2014 Immunizations Name Administration Dates Next Due Influenza, Quadrivalent, Dali l Culture-based MDCK, Antibiotic Free, Intramuscular 01/22/2020 Surgical History Surgery Date Site/Laterality Comments KNEE SURGERY knee surgery SECTION TONSILLECTOMY FACIAL SURGERY LITHOTRIPSY COLONOSCOPY 12/15/2015 UPPER GASTROINTESTINAL ENDOSCOPY KNEE ARTHROSCOPY W/ LATERAL RELEASE 1990, 1991, 2021 Medical History Medical History Date Comments Migraine IBS (irritable bowel syndrome) Diverticulitis Kidney stone RA (rheumatoid arthritis) (HCC) Hemorrhoid Meredith-Danlos syndrome Peptic ulceration Autoimmune disease (CMS/HCC) (HCC) Rheumatoid Ar thritis Menstrual problem irregular and heavy Family History Medical History Relation Name Comments Arthritis Father Keegan Mcgregor Cancer Father Keegan Mcgregor Obesity Father Keegan Mcgregor Arthritis Father's Brother Cash Mcgregor Arthritis Father's Sister 1 Aquiles Donatoregina Diabetes Father's Sister 2 Michelle Abdirahman Arthritis Maternal Grandfather Sandy Foster Cancer Maternal Grandfather Sandy Foster Arthritis Maternal Grandmother Ondina Foster Cancer Maternal Grandmother Ondina Foster Memory loss Maternal Grandmother Ondina Foster Arthritis Mother Aggie White Mental illness Mother Aggie White Cancer Other 1 Family history of Cancer, unknown; Lung cancer Other 2 Family history of Cancer, lung; Skin cancer Other 3 Family history of Cancer, skin; Other Other 4 Family history of lymphatic; Crohn's disease Other 5 Family histo ry of Crohn's disease; Arthritis Paternal Grandfather Nestor Mcgregor Cancer Paternal Grandfather Nestor Mcgregor Alzheimer's disease Paternal Grandmother Valerie Chino jennings Arthritis Paternal Grandmother Valerie Mcgregor Memory loss Paternal Grandmother Valerie Mcgregor Rashes / Skin problems Son Dhaval Walton Colon cancer Neg Hx Esophageal cancer Neg Hx Liver cancer Neg Hx Relation Name Status Comments Father Keegan Mcgregor Father's Brother Cash Mcgregor Father's Sister 1 Aquiles Smith Father's Sister 2 Michelle Nadinemedhat Maternal Grandfather López Foster Maternal Grandmother Ondina Foster Mother Aggie White Other 1 Other 2 Other 3 Other 4 Other 5 Paternal Grandfather Nestor Mcgregor Paternal Grandmother Valerie Balbir Son Dhaval Walton Social History Tobacco Use Types Packs/Day Years [...] on file Legal Sex Female 9:24 PM ELEVATOR SERVICE TECHNICIAN Gender Identity Female 08/14/2022 11:32 AM CDT Sexual Orientation Straight 02/13/2023 7: 01 AM CDT Obstetrics History Para Term AB IAB SAB Ectopic Multiple Livin g Live Births 2 2 Date Outcome GA Total Labor Labor/2nd/3rd Weight Sex Type Anes PTL Maren A1 A5 Name Clin Para Para Last Filed Vital Signs Vital Sign Reading [...] 07/03/2023 7:28 AM CDT Plan of Treatment Health Maintenance Due Date Last Done Comments Breast Cancer Screening-Mammogram 1974 Colon Cancer Screening-Colonoscopy 1974 Depression Screening 1974 Hepatitis B Screening 1992 Regular Well Visit/Exam 18-64 12/25/2019 12/24/2018 Influenza Vaccine (#1) 2023 0, 02/05/2018, 01/30/2017, Additional history exists DTaP/Tdap/Td Vaccine (2 - Td or Tdap) 05/10/2027 05/10/2017 Hepatitis C Screening Completed 06/29/2015 Pneumococcal vaccine <65 Aged Out 05/10/2017 No longer eligible based on patient's age to complete this topic Cervical Cancer Screening Discontinued 12/24/2018 Procedures Procedure Name Priority Date/Time Associated Diagnosis Comments THINPREP PAP WITH HPV Routine 12/24/2018 3:41 PM CDT Well woman exam SERUM HEPATITIS C AB Routine 06/29/2015 2:43 PM ELEVATOR SERVICE TECHNICIAN from Last 3 Months or Most Recently Relevant to Health Maintenance Results * ThinPrep Pap with HPV (12/24/2018 3:41 PM CDT) 12/24/2018 3:41 PM CDT 12/25/2018 8:54 AM CDT Narrative [facility] - 12/26/2018 2:53 PM CDT [facility] Department of Pathology [address] [place] [id number] Final Report with Addendum Patient Name: ??CAMACHOJULIAN Address: ??[address] [place] [address], ?? [place], [place] [address] Gender: ??F : ??1975 (Age: 43) Service: ??Laboratory Location: ??Lab Hospital #: ??[id number] Patient Type: ?? Ref Lab Taken: ??12/24/2018 Received: ??12/25/2018 Accessioned:: ??12/26/2018 Reported: ??12/26/2018 Physician(s): Curtis Oseguera M.D. [facility] Diagnosis: Source of Specimen: ? SCREENING IMAGED [...] determined by the Surgical Pathology Department at [facility] as part of an ongoing food quality tester program and in compliance with federally mandated [...] characteristics determined by the Surgical Pathology Department [facility]. ??It has not been cleared or approved by the U. S. Food and Drug Administration. Curtis Oseguera MD LAB CYTOLOGY ORDERABLES Final Result [facility] [address] [place], [place] [id number] [place] [address] * Serum Hepatitis C ab (06/29/2015 2:43 PM ELEVATOR SERVICE TECHNICIAN) HCV ab Non-Reacti ve Non-Reacti ve HISTORICAL RESULTS Serum 06/29/2015 2:43 PM ELEVATOR SERVICE TECHNICIAN Miriam VALLE LAB BLOOD ORDERAB LES Final Result HISTORICAL RESULTS from Last 3 Months or Most Recently Relevant to Health Maintenance Insurance [place] App [place] Care Teams Program Checker Relationship Specialty Start Date End Date Bhupinder Tobias MD [address] [facility] [address] [place] [address] PCP - General Internal Medicine 06/03/20 Cash Woodruff III, MD [address] [facility] [address] [place] [address] Rheumatology 04/12/17 Jorge Aguiar MD [address] [facility] [address] [facility] [address] [place] [address] Consulting Physician Urology 11/10/20 Khoa Arias MD [address] [facility] [address] [place] [address] Referring Physician Gastroenterology 03/20/21
--- OUTSIDE RECORDS SUMMARY | 2024-04-29 19:22 | XMS_ITS | Encounter Summary ---
Author Organization [facility] Healthcare Address [address] [place] [address] Care Team Providers Care Production Welder Name Role Phone Kumar CARRILLO MD, Cash Howard Unavailable [phone] Bhupinder Tobias MD Primary Care Provider [phone] Jorge Aguiar MD Unavailable [phone] Khoa Arias MD Unavailable [phone] Reason for Visit * Reason Comments Shortness of Breath Sore Throat Encounter Details Date Type Department Care Team (Late st Contact Info) Description 08/21/2022 10:19 PM CDT - 08/22/2022 3:40 AM CDT Emergency [facility] Emergency Department [address] [place] [address] Pramod Vargas MD [address] [facility] [address] [place] [address] Abdominal pain (Primary Dx); Shortness of breath Discharge Disposition: Discharge to home or self [...] on file Legal Sex Female 9:24 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 Gender Identity Female 08/14/2022 11:32 AM CDT Sexual Orientation Straight 02/13/2023 7: 01 AM CDT documented as of this encounter Last Filed Vital Signs Vital Sign Reading Time Taken Comments Blood Pressure 140/86 08/22/2022 3:00 AM CDT Pulse 99 08/22/2022 3:00 AM CDT Temperature 37.2 ??C (99 ??F) 08/21/2022 5:59 PM CDT Respiratory Rate 18 08/21/2022 5:59 PM CDT Oxygen Saturation 91% 08/22/2022 3:00 AM CDT Inhaled Oxygen Concentration - - Weight 90.7 kg (200 lb) 08/21/2022 5:59 PM CDT Height 167.6 cm (5' 6 ) 08/21/2022 5:59 PM CDT Body Mass Index 32.28 08/21/2022 5:59 PM CDT documented in this encounter Discharge Instructions * Discharge Instructions* Gennaro Hassan MD - 08/22/2022 3:00 AM CDT You have been evaluated in the Emergency Department today for abdominal pain. Your evaluation did not show evidence of medical conditions requiring emergent intervention at this time. Please schedule an appointment with your primary care physician. Please keep your follow up with GIincluding for swallow study to evaluate for regurgitation. Return to the Emergency Department if you experience worsening or uncontrolled pain, fevers 100.4??F or greater, recurrent vomiting, inability to tolerate food or fluids by mouth, bloody stools or vomit, black or tarry stools, or any other concerning symptoms. documented in this encounter Medications at Time [...] Refills Last Filled Start Date End Date sucralfate (CARAFATE) 1 gram tablet Take 1 tablet (1 g total) by mouth 4 (four) times a day 120 tablet 08/22/2022 sucralfate (CARAFATE) 1 gram tablet Take 1 tablet (1 g total) by mouth 4 (four) times a day 120 tablet 08/22/2022 08/22/2022 documented in this encounter Discharge Disposition Disposition Code Departure Means Destination Comment s Discharge to home or self care VSS, GCS 15, A&Ox4, ambulatory. Prescriptions discussed with pt. Pt to d/c home with family documented in this encounter ED Notes * Criss Vizcarra MD - 08/21/2022 10:41 PM CDT HPI Chief Complaint Patient presents with ??? Shortness of Breath ??? Sore Throat HPI Madalyn Smith is a 47 year old female patient with PMH s/f Meredith-Danlos syndrome, psoriatic arthritis, migraine, anxiety, kidney stones, diverticulitis s/p 3 abx courses, and IBS presenting with sudden onset SOB and throat discomfort. The patient has history of Meredith Danlos c/b recurrent knee dislocations, chronic GI dysmotility, and anxiety. Reports that last night, she was lying down in bed and then suddenly aspirated GI contents. Says she felt the acid burning her throat and nose and going down into her lungs. Reports she aspirates often due to her dysmotility issues, but that this particular episode was severe. Ever sincethe episode, she has been having SOB and throat discomfort. Patient also reports vomiting 7 times since last night. Reports vomitus is either bilious or watery. Says she also has abdominal pain and bloody stools, both of which are chronic for her. Denies chest pain. Patient History: Patient Active Problem List Diagnosis Date Noted ??? Diverticulitis large intestine w/o perforation or abscess w/o bleeding 08/14/2022 ??? Abnormal serum level of lipase 12/11/2021 ??? 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 syndrome with constipation 08/31/2021 ??? Acute pancreatitis 08/30/2021 ??? Abdominal pain 03/31/2021 ??? Trochanteric bursitis of right hip 01/22/2020 ??? Flu vaccine need 01/22/2020 ??? Chronic pain of both knees 01/22/2020 ??? Trochanteric bursitis of left hip 01/22/2020 ??? Primary osteoarthritis of both knees 10/19/2019 ??? Frequent infections 04/23/2019 ??? Osteoporosis without current pathological fracture 09/18/2018 ??? Rash 08/14/2018 ??? 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 ??? Encounter for long-term (current) use of medications 01/31/2017 ??? Abnormal LFTs 01/31/2017 ??? 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 Psoriatic arthritis (HCC) 01/31/2017 ??? Migraine 06/29/2015 ??? Diverticulosis of colon without diverticulitis 06/29/2015 ??? Kidney stones 09/09/2014 ??? Urinary tract infection 09/09/2014 Past Medical History: Diagnosis Date ??? Autoimmune disease (CMS/HCC) (HCC) Rheumatoid Arthritis ??? Diverticulitis ??? Meredith-Danlos syndrome ??? Hemorrhoid ??? IBS (irritable bowel syndrome) ??? Kidney stone ??? Menstrual problem irregular and heavy ??? Migraine ??? Peptic ulceration ??? RA (rheumatoid arthritis) ([facility]) Past Surgical History: Procedure Laterality Date ??? SECTION ??? COLONOSCOPY 12/15/2015 ??? FACIAL SURGERY ??? KNEE ARTHROSCOPY W/ LATERAL RELEASE 1990, 1991, 2021 ??? KNEE SURGERY knee surgery ??? LITHOTRIPSY ??? TONSILLECTOMY ??? UPPER GASTROINTESTINAL ENDOSCOPY Family History Problem Relation Age of Onset ??? Cancer Other Family history of Cancer, unknown; ??? Lung cancer Other Family history of Cancer, lung; ??? Skin cancer Other Family history of Cancer, skin; ??? Other Other Family history of lymphatic; ??? Crohn's disease Other Family history of Crohn's disease; ??? Arthritis Mother ??? Mental illness Mother ??? Arthritis Father ??? Cancer Father ??? Obesity Father ??? Arthritis Maternal Grandfather ??? Cancer Maternal Grandfather ??? Arthritis Maternal Grandmother ??? Cancer Maternal Grandmother ??? Memory loss Maternal Grandmother ??? Arthritis Paternal Grandfather ??? Cancer Paternal Grandfather ??? Alzheimer's disease Paternal Grandmother ??? Arthritis Paternal Grandmother ??? Memory loss Paternal Grandmother ??? Arthritis Father's Sister ??? Arthritis Father's Brother ??? Diabetes Father's Sister ??? Rashes / Skin problems Son ??? Colon cancer Neg Hx ??? Esophageal cancer Neg Hx ??? Liver cancer Neg Hx Social History Tobacco Use ??? Smoking status: Former Packs/day: 0.50 Years: 10.00 Pack years: 5.00 Types: Cigarettes Quit date: 04/22/2012 Years since quittin.3 ??? Smokeless tobacco: Never Vaping Use ??? Vaping status: Former Substances: Flavoring Substance and Sexual Activity ??? Alcohol use: Yes Comment: socially ??? Drug use: Yes Types: Marijuana ??? Sexual activity: Yes Partners: Male Social History Social History Narrative ??? Not on file Review of Systems Review of Systems Constitutional: Positive for fatigue. HENT: Positive for sore throat and trouble swallowing. Respiratory: Positive for shortness of breath. Gastrointestinal: Positive for abdominal pain, nausea and vomiting. Neurological: Positive for headaches. Physical Exam ED Triage Vitals [08/21/22 1759] Temp Pulse Resp BP SpO2 37.2 ??C (99 ??F) (!) 133 18 139/82 98 % Temp src Heart Rate Source Patient Position BP Location FiO2 (%) Oral -- -- -- -- Height Height Method Weight Weight Method 1.676 m (5' 6 ) Stated 90.7 kg (200 lb) Stated Physical Exam Constitutional: Appearance: She is well-developed. HENT: Head: Normocephalic and atraumatic. Cardiovascular: Rate and Rhythm: Regular rhythm. Tachycardia present. Pulmonary: Effort: Pulmonary effort is normal. Comments: Mild scattered crackles Abdominal: Palpations: Abdomen is soft. Comments: Diffusely tender, worse in LLQ Musculoskeletal: Right lower leg: No edema. Left lower leg: No edema. Skin: General: Skin is warm and dry. Neurological: General: No focal deficit present. Mental Status: She is alert. Psychiatric: Mood and Affect: Mood is anxious. [facility] Medical Decision Making Madalyn Smith is a 47 year old female patient with PMH s/f Meredith-Danlos syndrome, psoriatic arthritis, migraine, anxiety, kidney stones, diverticulitis, and IBS presenting with sudden onset SOB andthroat discomfort. Patient reports long standing history of aspiration due to her connective tissuedisorder. CXR with no pulmonary consolidation, pleural effusion, or pneumothorax. Concern for aspiration pneumonia vs severe reflux vs sequelae of GI dysmotility. Plan for basic labs (cbc, cmp), CXR.Will give IV PPI and GI cocktail. Dispo pending workup. Attending Summary of Care ED Course as of 08/22/22 0304 Time: 08/21 2172 Comment: 47 yo F c/o sob past night, h/o meredith danlos, migraines, diverticulitis/abx courses, IBS,sob/sore throat after last night has reflux/aspiration events recurred last night. 7 times emesis since last night and chronic abd pain/n/v unchanged, no chest pain. 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 Exam nad/not ill appearing, on RA sating upper 90s, cta bilat, OP mild errythema w/o exudate and no stridor. afebrile/no wbc/cxr clear/no hypoxia plan no abx w this aspiration event and CTM closely outpt and supportive care g erd/acid suppression/analgesia prn and return if worsening/keep outpt GI appt. By: Pramod Vargas MD Time: 08/22 0115 Comment: Re-evaluated pt. Pain slightly improved after GI cocktail. Lungs CTAB. Abd soft, mild diffuse TTP without guarding or rebound. Pt reports she has GI appointment in a few weeks. Plan for [place] and sucralfate here and then reassess. Anticipate discharge with close outpatient f/u. By: Gennaro Hassan MD Time: 08/22 0303 Comment: Re-evaluated pt. She feels much better after sucralfate. Abdominal pain improved. She feels comfortable going home and taking her home medications. Will write for sucralfate script. Pt instructed to keep GI follow up. By: Gennaro Hassan MD No diagnosis found. Criss Vizcarra MD Resident 08/21/22 5000 Cosigned by Pramod Vargas MD at 08/22/2022 5:41 AM CDT Associated attestation - Pramod Vargas MD - 08/22/2022 5:41 AM CDT I have seen and examined the patient on 08/21/2022. I reviewed the resident's note and agree with thefindings and plan of care as documented in the resident's note with modifications as documented in my note. * Ekta Dewitt RN - 08/21/2022 10:19 PM CDT Bed: ED2-30 Expected date: Expected time: Means of arrival: Car Comments: Ekta Dewitt RN 08/21/22 1330 * Mary Marks RN - 08/21/2022 5:56 PM CDT Pt state she has been coughing states she believes she aspirated on her own salvia has hx of ehlersDanlos pt also with left side abd pain with bowel movements documented in this encounter Miscellaneous Notes * ED Re-evaluation Note - Gennaro Hassan MD - 08/21/2022 10:49 PM CDT ED Re-evaluation TRANSITION OF CARE: I, Gennaro Hassan MD, am taking signout. I have reviewed all pertinent vital signs, allergies, and history available in the chart. Summary: 47 y.o. female h/o Ehler danlos, diverticulitis, pancreatitis, kidney stones presents withsore throat, cough and shortness of breath as well as L sided abd pain with defecation. N/v x 7. Also reports bloody stools. Pt reports frequent aspiration events from Ehler Danlos and GI dysmotility. CXR normal. Plan to give GI cocktail, PPI. Pending: labs Dispo: pending above ED Course as of 08/22/22 0815 Time: 08/21 1628 Comment: 47 yo F c/o sob past night, h/o meredith danlos, migraines, diverticulitis/abx courses, IBS,sob/sore throat after last night has reflux/aspiration events recurred last night. 7 times emesis since last night and chronic abd pain/n/v unchanged, no chest pain. 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 Exam nad/not ill appearing, on RA sating upper 90s, cta bilat, OP mild errythema w/o exudate and no stridor. afebrile/no wbc/cxr clear/no hypoxia plan no abx w this aspiration event and CTM closely outpt and supportive care g erd/acid suppression/analgesia prn and return if worsening/keep outpt GI appt. By: Pramod Vargas MD Time: 08/22 0115 Comment: Re-evaluated pt. Pain slightly improved after GI cocktail. Lungs CTAB. Abd soft, mild diffuse TTP without guarding or rebound. Pt reports she has GI appointment in a few weeks. Plan for [place] and sucralfate here and then reassess. Anticipate discharge with close outpatient f/u. By: Gennaro Hassan MD Time: 08/22 0303 Comment: Re-evaluated pt. She feels much better after sucralfate. Abdominal pain improved. She feels comfortable going home and taking her home medications. Will write for sucralfate script. Pt instructed to keep GI follow up. By: Gennaro Hassan MD Schmitt, Edward James, MD Resident 08/22/22 0815 documented in this encounter Plan of Treatment Not on file documented as of this encounter Procedures Procedure Name Priority Date/Time Associated Diagnosis Comments POCT RAPID HIV ANTIBODY COMMUNITY SCREENING-CAESAR ELIGIBLE Routine 08/21/2022 11:57 PM CDT EGFR STAT 08/21/2022 11:00 PM CDT DIFFERENTIAL AUTO Routine 08/21/2022 11: 00 PM CDT CBC WITH AUTO DIFFERENTIAL Routine 08/21/2022 11:00 PM CDT COMPREHENSIVE METABOLIC PANEL STAT 08/21/2022 11:00 PM CDT XR CHEST PA LATERAL 2 VIEWS ED 08/21/2022 9:57 PM CDT documented in this encounter Results * POCT rapid HIV (08/21/2022 11:57 PM CDT) [facility] Rapid HIV, POC Negative Negative Lot Number [id number] QC Control Line Acceptable Blood 08/21/2022 11:5 7 PM CDT Pramod Vargas MD POINT OF CARE [facility] ORDERABLES Final Result * (ABNORMAL) eGFR (08/21/2022 11:00 PM CDT) [facility] eGFR 61(L) 90 - 130 mL/min/1. 73 m2 [facility] Comment: Interpretive Data Reference Interval Normal ?>/= [...] interpretive data was last reviewed 2021. Blood 08/21/2022 11:0 0 PM CDT 08/21/2022 11:19 PM CDT us Criss Vizcarra MD LAB BLOOD ORDERABLES Abigail wahl Result [facility] Department [place] [address] * (ABNORMAL) Differential, auto (08/21/2022 11:00 PM CDT) Neutrophil abs 5.7 1.7 - 6.5 K/cumm [facility] Imm gran abs 0.1 0.0 - 0.1 K/cumm [facility] Lymphocyte abs 0.7(L) 0.8 - 3.3 K/cumm [facility] Monocyte abs 0.6 0.2 - 0.8 K/cumm [facility] Eosinophil abs 0.1 0.0 - 0.5 K/cumm [facility] Basophil abs 0.0 0.0 - 0.1 K/cumm [facility] Neutrophil pct 79.5 % [facility] Comment: Interpretive Data Percent cell count reference ranges are not reported, since discordance with absolute values may lead to misinterpretation of CBC data. Current Interpretive Data was last revised on 2017. Imm gran pct 0.7 % [facility] Comment: Interpretive Data Percent cell count reference ranges are not reported, since discordance with absolute values may lead to misinterpretation of CBC data. Current Interpretive Data was last revised on 2017. Lymphocyte pct 10.0 % [facility] Comment: Interpretive Data Percent cell count reference ranges are not reported, since discordance with absolute values may lead to misinterpretation of CBC data. Current Interpretive Data was last revised on 2017. Monocyte pct 7.9 % [facility] Comment: Interpretive Data Percent cell count reference ranges are not reported, since discordance with absolute values may lead to misinterpretation of CBC data. Current Interpretive Data was last revised on 2017. Eosinophil pct 1.3 % [facility] Comment: Interpretive Data Percent cell count reference ranges are not reported, since discordance with absolute values may lead to misinterpretation of CBC data. Current Interpretive Data was last revised on 2017. Basophil pct 0.6 % [facility] Comment: Interpretive Data Percent cell count reference ranges are not reported, since discordance with absolute values may lead to misinterpretation of CBC data. Current Interpretive Data was last revised on 2017. Blood 08/21/2022 11:0 0 PM CDT 08/21/2022 11:19 PM CDT Criss Vizcarra MD LAB BLOOD ORDERABLES Abigail wahl Result [facility] Department [place] [address] * (ABNORMAL) Comprehensive metabolic panel (08/21/2022 11:00 PM CDT) Sodium 136 135 - 145 mmol/L [facility] Potassium, pl 3.7 3.3 - 4.9 mmol/L [facility] Chloride 101 97 - 110 mmol/L [facility] CO2 26 22 - 32 mmol/L [facility] Anion gap 9 2 - 15 mmol/L [facility] BUN 10 8 - 25 mg/dL [facility] Creatinine 1.12(H) 0.60 - 1.10 mg/dL [facility] Glucose 83 70 - 199 mg/dL [facility] Comment: Interpretive Data Fasting glucose >/= [...] interpretive data was last revised 2022. Calcium 8.6 8.5 - 10.3 mg/dL [facility] Bilirubin, total 0.4 0.1 - 1.2 mg/dL [facility] Protein, pl 7.0 6.5 - 8.5 g/dL [facility] Albumin 3.9 3.5 - 5.0 g/dL [facility] Alk phos 91 40 - 130 Units/L [facility] ALT 28 7 - 45 Units/L [facility] AST 29 10 - 45 Units/L [facility] Blood 08/21/2022 11:0 0 PM CDT 08/21/2022 11:19 PM CDT Criss Vizcarra MD LAB BLOOD ORDERABLES Abigail wahl Result [facility] Department [place] [address] * (ABNORMAL) CBC with auto differential (08/21/2022 11:00 PM CDT) Pathologist [facility] WBC 7.1 3.8 - 9.9 K/cumm [facility] Hgb 11.2(L) 11.9 - 15.5 g/dL [facility] Hct 35.5(L) 35.6 - 45.5 % [facility] Plt 255 150 - 400 K/cumm [facility] MPV 9.0(L) 9.1 - 12.3 fL [facility] RBC 4.26 3.90 - 5.20 M/cumm [facility] MCV 83.3 81.3 - 96.4 fL [facility] MCH 26.3(L) 27.1 - 33.3 pg [facility] MCHC 31.5(L) 32.3 - 35.7 g/dL [facility] RDW CV 14.5 11.1 - 14.9 % [facility] RDW SD 43.7 35.7 - 48.1 fL [facility] NRBC abs 0.00 0.00 - 0.01 K/cumm [facility] Blood 08/21/2022 11:0 0 PM CDT 08/21/2022 11:19 PM CDT Criss Vizcarra MD LAB BLOOD ORDERABLES Abigail l Result Performing Organization Address City/State/[facility] Co de Phone Number [facility] Department [place] [address] * XR Chest Pa Lateral 2 Vw (08/21/2022 9:57 PM CDT) Anatomical Region Laterality Modality Body, Chest N/A Computed Radiogr aphy 08/21/2022 10:0 4 PM CDT Impressions 08/22/2022 7:40 AM CDT No pulmonary consolidation, pleural effusion, or pneumothorax. Normal cardiomediastinal silhouette. Dictated by: Mark Anthony Thorne MD The radiology attending physician has personally reviewed this study, and had reviewed and/or edited this written report and agrees with it. Electronically signed by: Yusuf Brown M.D. Narrative 08/22/2022 7:40 AM CDT EXAMINATION: XR CHEST PA LATERAL 2 VIEWS HISTORY: ??Shortness of breath COMPARISON: Chest radiograph 12/31/2016 Procedure Note Yusuf Brown MD - 08/22/2022 EXAMINATION: XR CHEST PA LATERAL 2 VIEWS HISTORY: Shortness of breath COMPARISON: Chest radiograph 12/31/2016 IMPRESSION: No pulmonary consolidation, pleural effusion, or pneumothorax. Normal cardiomediastinal silhouette. Dictated by: Mark Anthony Thorne MD The radiology attending physician has personally reviewed this study, and had reviewed and/or edited this written report and agrees with it. Electronically signed by: Yusuf Brown M.D. Vanda Randle MD IMG XR PROCEDURES Final R esult documented in this encounter Visit Diagnoses Diagnosis Abdominal pain- Primary Abdominal pain, unspecified site Shortness of breath documented in this encounter Administered Medications Inactive Administered Medications - up to 3 most recent administrations Medication Order MAR Action Action Date Dose Rate Site al & mag hydroxide nkcjzghmhmc-mbjwbkyho-jxzypv mine oral suspension mixture 45 mL, oral, Once, On Sat08/21/22 at 2336, For 1 dose Given 08/22/2022 12:06 AM CDT 45 mL HYDROcodone-acetaminophen (NORCO) 5-325 mg per tablet 2 tablet 2 tablet, oral, Once, On Sat08/22/22 at 0048, For 1 dose, Indications: PainIndications:Pain Given 08/22/2022 1:17 AM CDT 2 tablets Lactated Ringer's (LR) bolus 1,000 mL 1,000 mL, intravenous, at 1,000 mL/hr, Administer over 1 Hours, Once, On Sat08/21/22 at 2243, For 1 dose New Bag 08/21/2022 11:00 PM CDT 1,000 mL 1000 mL/hr ondansetron (ZOFRAN) injection 4 mg 4 mg, intravenous, Administer over 2 Minutes, Every 6 hours PRN, nausea, vomiting, Starting on Sat08/21/22 at 2334 Given 08/22/2022 12:08 AM CDT 4 mg pantoprazole (PROTONIX) 4 mg/mL injection 40 mg 40 mg, intravenous, Administer over 2 Minutes, Once, On Sat08/21/22 at 2336, For 1 dose, For IV Push administration for adults- 40 mg vial: add 10 mL of sodium chloride 0.9% to achieve a final concentration of 4 mg/mL, Indications: Treatment of Non-Bleeding Gastric DisorderIndications:Treatmen t of Non-Bleeding Gastric Disorder Given 08/22/2022 12:08 AM CDT 40 mg sucralfate (CARAFATE) tablet 1 g 1 g, oral, 2 times daily, First dose on Sat08/22/22 at 0050 Given 08/22/2022 1:17 AM CDT 1 g documented in this encounter Discontinued Medications Medication Sig Discontinue Reason Start Date End Da te sucralfate (CARAFATE) 1 gram tablet Take 1 tablet (1 g total) by mouth 4 (four) times a day Reorder 08/22/2022 08/22/2022 documented as of this encounter Active and Recently Administered Medications Times are shown in CDT. Scheduled Medication Order 08/20/2022 08/21/2022 08/22/2022 al & mag hydroxide ilomqpojhsx-wjhcqbumf-nxmzfu mine oral suspension mixture (COMPLETED) 45 mL, oral, Once, On Sat08/21/22 at 2336, For 1 dose 0006 (Given - Provid er: Paulo Mcneil RN) HYDROcodone-acetaminophen (NORCO) 5-325 mg per tablet 2 tablet (COMPLETED) 2 tablet, oral, Once, On Sat08/22/22 at 0048, For 1 dose, Indications: Pain 0117 (Given - Provid er: Paulo Mcneil RN) Lactated Ringer's (LR) bolus 1,000 mL (COMPLETED) 1,000 mL, intravenous, at 1,000 mL/hr, Administer over 1 Hours, Once, On Sat08/21/22 at 2243, For 1 dose 2300 (New Bag - Provider: Paulo Mcneil RN) 0244 (Stopped - Provider: Paulo Mcneil RN) pantoprazole (PROTONIX) 4 mg/mL injection 40 mg (COMPLETED) 40 mg, intravenous, Administer over 2 Minutes, Once, On Sat08/21/22 at 2336, For 1 dose, For IV Push administration for adults- 40 mg vial: add 10 mL of sodium chloride 0.9% to achieve a final concentration of 4 mg/mL, Indications: Treatment of Non-Bleeding Gastric Disorder 0008 (Given - Provid er: Paulo Mcneil RN) sucralfate (CARAFATE) tablet 1 g 1 g, oral, 2 times daily, First dose on Sat08/22/22 at 0050 0117 (Given - Provid er: Paulo Mcneil, ANTHONY) PRN Medication Order 08/20/2022 08/21/2022 08/22/2022 ondansetron (ZOFRAN) injection 4 mg 4 mg, intravenous, Administer over 2 Minutes, Every 6 hours PRN, nausea, vomiting, Starting on Tu08/21/22 at 2334 0008 (Given - Provid er: Paulo Mcneil RN) documented in this encounter Care Teams Production Welder Relationship Specialty Start Date End Date Bhupinder Tobias MD [address] [place] [address] PCP - General Internal Medicine 06/03/20 Cash Heath III, MD [address] [place] [address] Rheumatology 04/12/17 Jorge Aguiar MD [address] [place], [place] [id number] Consulting Physician Urology 11/10/20 Khoa Arias MD [address] [place] [address] Referring Physician Gastroenterology 03/20/21 documented as of this encounter
--- OUTSIDE RECORDS SUMMARY | 2024-04-29 19:22 | XMS_ITS | Encounter Summary ---
Author Organization [facility] Healthcare Address [address] [place] [address] Care Team Providers Care Director Revenue Name Role Phone Kumar CARRILLO MD, Cash Howard Unavailable [phone] Bhupinder Tobias MD Primary Care Provider [phone] Jorge Aguiar MD Unavailable [phone] Khoa Arias MD Unavailable [phone] Encounter Details Date Type Department Care Team (Latest Contact Info) Description 08/14/2022 9:46 AM CDT - 08/14/2022 11:59 PM CDT Hospital Encounter 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 Gender Identity Female 08/14/2022 11:32 AM CDT [...] 02/02/2017 3 documented as of this encounter Discharge Disposition Disposition Code Departure Means Destination Discharge to home or self care documented in this encounter Plan of Treatment Not on file documented as of this encounter Procedures Procedure Name Priority Date/Time Associated Diagnosis Comments CT BODY OUTSIDE REFERENCE Routine 08/14/2022 9:46 AM CDT Diagnosis unknown documented in this encounter Results * CT Body Outside Reference (08/14/2022 9:46 AM CDT) Impressions [facility] - 08/14/2022 9:46 AM CDT These images are for Reference purposes only and have not been reviewed by [facility]. ??There will be no report generated by a [facility] Radiologist. Narrative [facility] - 08/14/2022 9:46 AM CDT EXAMINATION: ??Images For Reference Purposes Only us Jose De Jesus Calderon MD IMG CT PROCEDURES Final Resu lt [facility] documented in this encounter Visit Diagnoses Not on filedocumented in this encounter Care Teams Director Revenue Relationship Specialty Start Date End Date Bhupinder Tobias MD [address] [place] [address] PCP - General Internal Medicine 06/03/20 Cash Heath III, MD [address] [facility] 110 [place] [address] Rheumatology 04/12/17 Jorge Aguiar MD [address] [facility] [address] [place] [address] Consulting Physician Urology 11/10/20 Khoa Arias MD [address] [facility] [address] [place] [address] Referring Physician Gastroenterology 03/20/21 documented as of this encounter
--- OUTSIDE RECORDS SUMMARY | 2024-04-29 19:22 | XMS_ITS | Encounter Summary ---
Author Organization [facility] Address [address] [place] [address] Phone Care Team Providers Care Fifth Grade Teacher Name Role Phone Kumar CARRILLO MD, Cash Howard Unavailable [phone] Bhupinder Tobias MD Primary Care Provider [phone] Jorge Aguiar MD Unavailable [phone] Khoa Arias MD Unavailable [phone] Encounter Details Date Type Department Care Team (Late st Contact Info) Description 12/11/2021 Telephone [facility] [address] [place] [address] Miriam Frye PA [address] [place] [address] Social History Tobacco Use Types Packs/Day Years [...] on file 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 Lab order mailed to pt. * Telephone Encounter - Miriam Frye PA - 12/11/2021 1:03 PM CDT I added lipase and amylase to today's labs. Can you mail lab req to her. She needs to do this in 2 weeks. documented in this encounter Plan of Treatment Not on file documented as of this encounter Visit Diagnoses Not on filedocumented in this encounter Care Teams Fifth Grade Teacher Relationship Specialty Start Date End Date Bhupinder Tobias MD [address] [address] PCP - General Internal Medicine 06/03/20 Cash Heath III, MD [address] [facility] 110 [place] [address] Rheumatology 04/12/17 Jorge Aguiar MD [address] [facility] 120 [place] [address] Consulting Physician Urology 11/10/20 Khoa Arias MD [address] [facility] 120 [place] [address] Referring Physician Gastroenterology 03/20/21 documented as of this encounter
--- OUTSIDE RECORDS SUMMARY | 2024-04-29 19:22 | XMS_ITS | Encounter Summary ---
Author Organization [facility] Healthcare Address [address] [place] [address] Care Team Providers Care Ex Chef Name Role Phone Kumar CARRILLO MD, Cash Howard Unavailable [phone] Bhupinder Tobias MD Primary Care Provider [phone] Jorge Aguiar MD Unavailable [phone] Khoa Arias MD Unavailable [phone] Encounter Details Date Type Department Care Team (Latest Contact Info) Description 08/16/2022 9:04 AM CDT - 08/16/2022 11:59 PM CDT Hospital Encounter [facility]) [address] [place] [address] Discharge Disposition: Discharge to home or self [...] on file 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 ??There will be no report generated by a [facility] Radiologist. Narrative [facility] - 08/16/2022 9:04 AM CDT EXAMINATION: ??Images For Reference Purposes Only us Jose De Jesus Calderon MD IMG CT PROCEDURES Final Resu lt [facility] documented in this encounter Visit Diagnoses Not on filedocumented in this encounter Care Teams Ex Chef Relationship Specialty Start Date End Date Bhupinder Tobias MD [address] [place] [address] PCP - General Internal Medicine 06/03/20 Cash Heath III, MD [address] [facility] 110 [place] [address] Rheumatology 04/12/17 Jorge Aguiar MD [address] [facility] [address] [place] [address] Consulting Physician Urology 11/10/20 Khoa Arias MD [address] [facility] [address] [place] [address] Referring Physician Gastroenterology 03/20/21 documented as of this encounter
--- OUTSIDE RECORDS SUMMARY | 2024-04-29 19:23 | XMS_ITS | Encounter Summary ---
Author Organization [facility] Address [address] [place] [address] Phone Care Team Providers Care Computer Systems Technology Instructor Name Role Phone Isaiah Quiros MD Unavailable Kumar CARRILLO MD, Cash Howard Unavailable [phone] Alex Mahajan MD Unavailable [phone] Bhupinder Tobias MD Unavailable [phone] Bhupinder Tobias MD Primary Care Provider [phone] Jorge Aguiar MD Unavailable [phone] Encounter Details Date Type Department Care Team (Late st Contact Info) Description 11/07/2020 Telephone [facility] [address] [place] [address] Miriam Frye PA [address] [place] [address] Social History Tobacco Use Types Packs/Day Years Used Date Smoking Tobacco: Never Alcohol Use Standard Drinks/Week Comments No 0 (1 standard drink = 0.6 oz pur e alcohol) Comments No Sex and Gender Information Value Date Recorded Sex Assigned at Not on file 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 I will let you know once I have received a response. * Telephone Encounter - Miriam Frye PA - 11/07/2020 3:44 PM CDT Stop stelara and go back to orencia iv. documented in this encounter Plan of Treatment Not on file documented as of this encounter Visit Diagnoses Not on filedocumented in this encounter Care Teams Computer Systems Technology Instructor Relationship Specialty Start Date End Date Bhupinder Tobias MD [address] [place] [address] PCP - General Internal Medicine 06/03/20 Isaiah Quiros MD [address] [facility] 1 [place], [place] [address] Internal Medicine 02/18/17 03/19/21 Cash Heath III, MD [address] [place] [address] Rheumatology 04/12/17 Alex Mahajan MD [address] [place], [place] [address] Referring Physician Internal Medicine 05/07/19 1 Bhupinder Tobias MD [address] [place], [place] [address] Referring Physician Internal Medicine 06/03/20 1 Jorge Aguiar MD [address] [place] [address] Consulting Physician Urology 11/10/20 documented as of this encounter
--- OUTSIDE RECORDS SUMMARY | 2024-04-29 19:23 | XMS_ITS | Encounter Summary ---
Author Organization [facility] Address [address] [place] [address] Phone Care Team Providers Care Control Director Name Role Phone Isaiah Quiros MD Unavailable Isaiah Quiros MD Primary Care Provider [phone] Kumar CARRILLO MD, Cash Howard Unavailable [phone] Alex Mahajan MD Unavailable Reason for Visit * Reason Onset Date Comments Patient Education 04/29/2020 [employer] Injec tion Training Encounter Details Date Type Department Care Team (Late st Contact Info) Description 04/29/2020 Documentation [facility] [address] [place] [address] Billy Samaniego Patient Education ([employer] Injection Training) Social History Tobacco Use Types Packs/Day Years Used Date Smoking Tobacco: Never Alcohol Use Standard Drinks/Week Comments No 0 (1 standard drink = 0.6 oz pur e alcohol) Comments No Sex and Gender Information Value Date Recorded Sex Assigned at Not on file Legal Sex Female 9:24 PM EXTERN Gender Identity Female 08/14/2022 11:32 AM CDT Sexual Orientation Straight 02/13/2023 7: 01 AM CDT documented as of this encounter Progress Notes * Billy Samaniego - 04/29/2020 2:55 PM CST Patient here today for [employer] self-injection training. Patient denies any signs/sxs of infection,rashes, open wounds, abd pain or change in bowels habits, recent or upcoming surgeries or procedures including dental or skin. Medication sample provided from office supply; medication at room temperature. Patient given verbal instructions on proper storage, administration, cleaning of area, and rotation of sites. Demonstration device used for practice. Patient self- administered 1st dose into right thigh at 1440 using proper technique without difficulty. Pt stayed x30 mins for monitoring of anysigns/sxs of reactions. Site was assessed prior to being discharged. No evidence of reaction. Discharge instruction sheets reviewed and given to patient. Patient left in stable condition at 1510. RN documented in this encounter Plan of Treatment Not on file documented as of this encounter Visit Diagnoses Not on filedocumented in this encounter Care Teams Control Director Relationship Specialty Start Date End Date Isaiah Quiros MD [address] [place] [address] PCP - General Internal Medicine 04/01/17 06/02/20 Isaiah Quiros MD [address] [place] [address] Internal Medicine 02/18/17 03/19/21 Cash Heath III, MD [address] [place] [address] Rheumatology 04/12/17 Alex Mahajan MD [address] [place] [address] Referring Physician Internal Medicine 05/07/19 1 documented as of this encounter
--- OUTSIDE RECORDS SUMMARY | 2024-04-29 19:23 | XMS_ITS | Encounter Summary ---
Author Organization [facility] Address [address] [place] [address] Phone Care Team Providers Care Filling Layer Up Name Role Phone Isaiah Quiros MD Unavailable Kumar CARRILLO MD, Cash Howard Unavailable [phone] Alex Mahajan MD Unavailable [phone] Bhupinder Tobias MD Unavailable [phone] Bhupinder Tobias MD Primary Care Provider [phone] Jorge Aguiar MD Unavailable [phone] Reason for Visit * Reason Onset Date Comments González VALLEJO Approved. Auth [id number] expires . Pl 11/24/2020 Encounter Details Date Type Department Care Team (Late st Contact Info) Description 11/24/2020 Telephone [facility] [address] [place] [phone] Ghazala Westbrook IV Approved. Auth [id number] expires 11/15/2022. 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 Auth [id number] expires 11/15/2022. Please schedule patient. Thank you. documented in this encounter Plan of Treatment Not on file documented as of this encounter Visit Diagnoses Not on filedocumented in this encounter Care Teams Filling Layer Up Relationship Specialty Start Date End Date Bhupinder Tobias MD [address] [facility] 120 [place], [place] [id number] PCP - General Internal Medicine 06/03/20 Isaiah Quiros MD [address] [address] Internal Medicine 02/18/17 03/19/21 Cash Heath III, MD [address] [place] [address] Rheumatology 04/12/17 Alex Mahajan MD [address] [place] [address] Referring Physician Internal Medicine 05/07/19 1 Bhupinder Toibas MD [address] [place] [address] Referring Physician Internal Medicine 06/03/20 1 Jorge Aguiar MD [address] [address] Consulting Physician Urology 11/10/20 documented as of this encounter
--- OUTSIDE RECORDS SUMMARY | 2024-04-29 19:23 | XMS_ITS | Encounter Summary ---
Author Organization [facility] Address [address] [place] [address] Phone Care Team Providers Care Puppet Developer Name Role Phone Isaiah Quiros MD Unavailable Kumar CARRILLO MD, Cash Howard Unavailable [phone] Alex Mahajan MD Unavailable [phone] Bhupinder Tobias MD Unavailable [phone] Bhupinder Tobias MD Primary Care Provider [phone] Jorge Aguiar MD Unavailable [phone] Encounter Details Date Type Department Care Team (Late st Contact Info) Description 11/24/2020 Orders Only [facility] [address] [place] [address] Cash Heath III, MD [address] [facility] [address] [place] [address] Psoriatic arthritis (CMS/HCC) ([facility]) (Primary Dx) Social History Tobacco Use Types Packs/Day Years Used Date Smoking Tobacco: Never Alcohol Use Standard Drinks/Week Comments No 0 (1 standard drink = 0.6 oz pur e alcohol) Comments No Sex and Gender Information Value Date Recorded Sex Assigned at Not on file 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 Gender Identity Female 08/14/2022 11:32 AM CDT Sexual Orientation Straight 02/13/2023 7: 01 AM CDT documented as of this encounter Plan of Treatment Not on file documented as of this encounter Visit Diagnoses Diagnosis Psoriatic arthritis (HCC)- Primary Psoriatic arthropathy documented in this encounter Orders Medications Ordered That Doron ht Not Have Been Administered Count Last Ordered Date First Ordered Date abatacept (ORENCIA) 250 mg i njection 750 mg 1 11/24/2020 documented in this encounter Care Teams Puppet Developer Relationship Specialty Start Date End Date Bhupinder Tobias MD [address] [place] [address] PCP - General Internal Medicine 06/03/20 Isaiah Quiros MD [address] [facility] 1 [place] [address] Internal Medicine 02/18/17 03/19/21 Cash Heath III, MD [address] [place] [address] Rheumatology 04/12/17 Alex Mahajan MD [address] [place] [address] Referring Physician Internal Medicine 05/07/19 1 Bhupinder Tobias MD [address] [place] [address] Referring Physician Internal Medicine 06/03/20 1 Jorge Aguiar MD [address] [place] [address] Consulting Physician Urology 11/10/20 documented as of this encounter
--- OUTSIDE RECORDS SUMMARY | 2024-04-29 19:23 | XMS_ITS | Encounter Summary ---
Author Organization [facility] Address [address] [place] [address] Phone Care Team Providers Care Sports Lawyer Name Role Phone Isaiah Quiros MD Unavailable Isaiah Quiros MD Primary Care Provider [phone] Kumar CARRILLO MD, Cash Howard Unavailable [phone] Alex Mahajan MD Unavailable [phone] Encounter Details Date Type Department Care Team (Late st Contact Info) Description 03/09/2020 Telephone [facility] [address] [place] [address] Shavon Mcfadden MA Social History Tobacco Use Types Packs/Day Years Used Date Smoking Tobacco: Never Alcohol Use Standard Drinks/Week Comments No 0 (1 standard drink = 0.6 oz pur e alcohol) Comments No Sex and Gender Information Value Date Recorded Sex Assigned at Not on file 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 Routed last labs to [phone]. AL INSURANCE COORDINATOR documented in this encounter Plan of Treatment Not on file documented as of this encounter Visit Diagnoses Not on filedocumented in this encounter Care Teams Sports Lawyer Relationship Specialty Start Date End Date Isaiah Quiros MD [address] [place] [address] PCP - General Internal Medicine 04/01/17 06/02/20 Isaiah Quiros MD [address] [place] [address] Internal Medicine 02/18/17 03/19/21 Cash Heath III, MD [address] [place] [address] Rheumatology 04/12/17 Alex Mahajan MD [address] [place] [address] Referring Physician Internal Medicine 05/07/19 1 documented as of this encounter
--- OUTSIDE RECORDS SUMMARY | 2024-04-29 19:23 | XMS_ITS | Encounter Summary ---
Author Organization [facility] Address [address] [place] [address] Phone Care Team Providers Care Electronics Hardware Design Engineer Name Role Phone Isaiah Quiros MD Unavailable Kumar CARRILLO MD, Cash Howard Unavailable [phone] Alex Mahajan MD Unavailable [phone] Bhupinder Tobias MD Unavailable [phone] Bhupinder Tobias MD Primary Care Provider + [phone] Jorge Aguiar MD Unavailable [phone] Encounter Details Date Type Department Care Team (Late st Contact Info) Description 02/06/2021 1:00 PM CDT Office Visit [facility] [address] [place] [address] Miriam Frye PA [address] [place] [address] Psoriatic arthritis (CMS/HCC) (HCC) (Primary Dx); Osteoporosis without current pathological fracture, unspecified osteoporosis type; Encounter for long-term (current) use of medications Social History Tobacco Use Types Packs/Day Years Used Date Smoking Tobacco: Never Alcohol Use Standard Drinks/Week Comments No 0 (1 standard drink = 0.6 oz pur e alcohol) Comments No Sex and Gender Information Value Date Recorded Sex Assigned at Not on file Legal Sex Female 9:24 PM SHOVELER Gender Identity Female 08/14/2022 11:32 AM CDT Sexual Orientation Straight 02/13/2023 7: 01 AM CDT documented as of this encounter Last Filed Vital Signs Vital Sign Reading Time Taken Comments Blood Pressure 118/72 02/06/2021 1:08 PM CDT Pulse 99 02/06/2021 1:08 PM CDT Temperature 36.7 ??C (98.1 ??F) 02/06/2021 1:08 PM CD T Respiratory Rate - - Oxygen Saturation 97% 02/06/2021 1:08 PM CDT Inhaled Oxygen Concentration - - Weight 87.2 kg (192 lb 3.2 oz) 02/06/2021 1:08 P M CDT Height - - Body Mass Index 31.02 06/03/2020 3:14 PM SHOVELER documented in this encounter Patient Instructions * Patient Instructions* Miriam Frye PA - 02/06/2021 1:00 PM CDT Patient Education Patient Education Prednisone (By mouth) Prednisone ([id number]) Treats many diseases and conditions, especially problems related to inflammation. This medicine is a corticosteroid. Brand Name(s): Contrast Allergy PreMed Pack, Guru, predniSONE Intensol There may be other brand names for this medicine. When This Medicine Should Not Be Used: This medicine is not right for everyone. Do not use if you had an allergic reaction to prednisone or if you are . How to Use This Medicine: Liquid, Tablet, Delayed Release Tablet ?? Take your medicine as directed. Your dose may need to be changed several times to find what works best for you. ?? It is best to take this medicine with food or milk. ?? Swallow the delayed-release tablet whole. Do not crush, break, or chew it. ?? Measure the oral liquid medicine with a marked measuring spoon, oral syringe, or medicine cup. ?? Missed dose: Take a dose as soon as you remember. If it is almost time for your next dose, wait until then and take a regular dose. Do not take extra medicine to make up for a missed dose. ?? Store the medicine in a closed container at room temperature, away from heat, moisture, and direct light. Do not freeze the oral liquid. Drugs and Foods to Avoid: Ask your doctor or pharmacist before using any other medicine, including rtbu-lir-[id number] medicines, vitamins, and herbal products. ?? Tell your doctor if you use any of the following: ?? Aminoglutethimide, amphotericin B, carbamazepine, cholestyramine, cyclosporine, digoxin, isoniazid, ketoconazole, phenobarbital, phenytoin, or rifampin ?? Blood thinner, such as warfarin ?? NSAID pain or arthritis medicine, such as aspirin, diclofenac, ibuprofen, naproxen, celecoxib ?? Diuretic (water pill) ?? Diabetes medicine ?? Macrolide antibiotic, such as azithromycin, clarithromycin, erythromycin ?? Estrogen, including control pills or hormone replacement therapy ?? This medicine may interfere with vaccines. Ask your doctor before you get a flu shot or any other vaccines. Warnings While Using This Medicine: ?? It is not safe to take this medicine during . It could harm an unborn baby. Tell your doctor right away if you become . ?? Tell your doctor if you are or if you have kidney problems, heart failure, high blood pressure, a recent heart attack, diabetes, glaucoma, osteoporosis, or thyroid problems. Tell your doctor about any infection you have. Also tell your doctor if you have had mental or emotional problems (such as depression) or stomach or bowel problems (such as an ulcer or diverticulitis). ?? This medicine may cause the following problems: ?? Mood or behavior changes ?? Higher blood pressure, retaining water, changes in salt or potassium levels in your body ?? Cataracts or glaucoma (with long-term use) ?? Weak bones or osteoporosis (with long-term use) ?? Slow growth in children (with long-term use) ?? Muscle problems (with high doses, especially if you have myasthenia gravis or similar nerve and muscle problems) ?? Do not stop using this medicine suddenly. Your doctor will need to slowly decrease your dose before you stop it completely. ?? This medicine could cause you to get infections more easily. Tell your doctor right away if you are exposed to chicken pox, measles, or other serious infection. Tell your doctor if you had a serious infection in the past, such as tuberculosis or herpes. ?? Tell your doctor about any extra stress or anxiety in your life. Your dose might need to be changed for a short time. ?? Tell any doctor or dentist who treats you that you are using this medicine. This medicine may affect certain medical test results. ?? Keep all medicine out of the reach of children. Never share your medicine with anyone. Possible Side Effects While Using This Medicine: Call your doctor right away if you notice any of these side effects: ?? Allergic reaction: Itching or hives, swelling in your face or hands, swelling or tingling in your mouth or throat, chest tightness, trouble breathing ?? Dark freckles, skin color changes, coldness, weakness, tiredness, nausea, vomiting, weight loss ?? Depression, unusual thoughts, feelings, or behaviors, trouble sleeping ?? Fever, chills, cough, sore throat, and body aches ?? Muscle pain or weakness ?? Rapid weight gain, swelling in your hands, ankles, or feet ?? Severe stomach pain, nausea, vomiting, or red or black stools ?? Skin changes or growths ?? Trouble seeing, eye pain, headache If you notice these less serious side effects, talk with your doctor: ?? Increased appetite ?? Round, puffy face ?? Weight gain around your neck, upper back, breast, face, or waist If you notice other side effects that you think are caused by this medicine, tell your doctor. Call your doctor for medical advice about side effects. You may report side effects to FDA at 9-107-EBM-2920 ?? 2017 [employer] Information is for End User's use only and may not be sold, redistributed or otherwise used for commercial purposes. The above information is an medicaid service coordinator only. It is not intended as medical advice for individual conditions or treatments. Talk to your doctor, nurse or pharmacist before following any medical regimen to see if it is safe and effective for you. Tofacitinib (By mouth) Tofacitinib (nvk-wi-UXJ-ti-nib) Treats rheumatoid arthritis. Brand Name(s): Xeljanz, Xeljanz XR There may be other brand names for this medicine. When This Medicine Should Not Be Used: This medicine is not right for everyone. Do not use it if you had an allergic reaction to tofacitinib. How to Use This Medicine: Tablet, Long Acting Tablet ?? Your doctor will tell you how much medicine to use. Do not use more than directed. ?? Swallow the extended-release tablet whole. Do not crush, break, or chew it. ?? If you take the extended-release tablet, part of the tablet may pass into your stools. This is normal and is nothing to worry about. ?? This medicine should come with a Medication Guide. Ask your pharmacist for a copy if you do not have one. ?? Missed dose: Take a dose as soon as you remember. If it is almost time for your next dose, wait until then and take a regular dose. Do not take extra medicine to make up for a missed dose. ?? Store the medicine in a closed container at room temperature, away from heat, moisture, and direct light. Drugs and Foods to Avoid: Ask your doctor or pharmacist before using any other medicine, including cdly-uae-wtftuuo medicines, vitamins, and herbal products. ?? Some medicines can affect how tofacitinib works. Tell your doctor if you are using any of the following: ?? Medicines that weaken your immune system (including azathioprine, cyclosporine, methotrexate, tacrolimus) ?? Medicine to treat infection (including fluconazole, ketoconazole, rifampin) ?? NSAID medicine (including aspirin, diclofenac, ibuprofen, naproxen) ?? Steroid medicine (including dexamethasone, hydrocortisone, methylprednisolone, prednisolone, prednisone) ?? This medicine may interfere with vaccines. Ask your doctor before you get a flu shot or any other vaccines. Warnings While Using This Medicine: ?? It is not safe to take this medicine during . It could harm an unborn baby. Tell your doctor right away if you become . Use an effective form of control during treatment with this medicine and for at least 4 weeks after your last dose. ?? Do not breastfeed while you are using this medicine. ?? Tell your doctor if you have kidney disease, liver disease (including hepatitis B or C), lung disease (including interstitial lung disease), HIV, cancer or a history of cancer, blood problems, diabetes, high cholesterol, stomach or bowel problems (including blockage, diverticulitis, ulcers), or a history of tuberculosis. Also tell your doctor if you have a current infection or an infection that keeps coming back. ?? This medicine may cause the following problems: ?? Increased risk for serious infections, including herpes infection or shingles ?? Increased risk for certain cancers, including nonmelanoma skin cancer or lymphoma ?? Stomach or bowel perforation (tear or hole) ?? High cholesterol in the blood ?? Talk with your doctor before using this medicine if you plan to have children. Some women who use this medicine have become infertile (unable to have children). ?? This medicine may make you bleed, bruise, or get infections more easily. Take precautions to prevent illness and injury. Wash your hands often. ?? Your doctor will do lab tests at regular visits to check on the effects of this medicine. Keep all appointments. ?? Keep all medicine out of the reach of children. Never share your medicine with anyone. Possible Side Effects While Using This Medicine: Call your doctor right away if you notice any of these side effects: ?? Allergic reaction: Itching or hives, swelling in your face or hands, swelling or tingling in your mouth or throat, chest tightness, trouble breathing ?? Change in how much or how often you urinate, difficult or painful urination ?? Dark urine or pale stools, nausea, vomiting, loss of appetite, stomach pain, yellow skin or eyes ?? Fever, chills, cough, difficulty breathing, runny or stuffy nose, sore throat, night sweats, body aches ?? Skin or mole changes, sores that do not heal ?? Stomach pain, cramping, bloody stools ?? Swollen glands in your neck, armpits, or groin ?? Unusual bleeding, bruising, or weakness If you notice other side effects that you think are caused by this medicine, tell your doctor. Call your doctor for medical advice about side effects. You may report side effects to FDA at 6-288-XTJ-3196 ?? 2017 [employer] Information is for End User's use only and may not be sold, redistributed or otherwise used for commercial purposes. The above information is an medicaid service coordinator only. It is not intended as medical advice for individual conditions or treatments. Talk to your doctor, nurse or pharmacist before following any medical regimen to see if it is safe and effective for you. documented in this encounter Ordered Prescriptions Prescription Sig Dispense Quantity Refills Last Filled Start Date End Date triamcinolone (KENALOG) 0.1 % paste Apply 0.5 inches to teeth 2 (two) times a day 15 g 02/06/2021 04/25/2022 predniSONE (DELTASONE) 5 mg tablet Take 2 tabs po every day x 7d, 1 tab po every day x 7d and 1/2 tab po every day x 7d 40 tablet 02/06/2021 05/05/2021 documented in this encounter Progress Notes * Miriam Frye PA - 02/06/2021 1:00 PM CDT Images from the original note were not included. Subjective/Objective Patient ID: Madalyn Smith is a 45 y.o. female. Chief Complaint Joint pain HPI ands are hurting but only had 3 orencia infusions so far. No se from imuran or orencia iv. Failed multiple biologics in past. Had her covid vaccine booster a few days ago.. Her father had hx of psoriasis and UC. Seeing GI soon for her hx of ibs. No sob, cp, rashes, oral. Has occ nose ulcers. No infections. Had over 14 kidney stones in past 5 yrs, last ones were uric acid. No bouts of intense joint pain/swelling/erythema. Had her flu vaccine. Has not had shingrix vaccine. Review of Systems Constitutional: Negative for fatigue [...] dry. Psychiatric: Normal mood. Vitals reviewed. CDAI: 19 Labs Lab Results Component Value Date WBC 8.1 11/07/2020 HGB 14.5 11/07/2020 HCT 43.9 11/07/2020 MCV 94.2 11/07/2020 Lab Results Component Value Date GLUCOSE 84 11/07/2020 CALCIUM 8.9 11/07/2020 SODIUM 135 11/07/2020 POTASSIUM 4.1 11/07/2020 CO2 21 11/07/2020 CHLORIDE 103 11/07/2020 BUNSER 14 11/07/2020 CREATININE 0.85 11/07/2020 Lab Results Component Value Date ALT 33 (H) 11/07/2020 AST 21 11/07/2020 ALKPHOS 63 11/07/2020 BILITOT 0.5 11/07/2020 Lab Results Component Value Date SEDRATE 6 11/07/2020 Lab Results Component Value Date CRP 4.1 11/07/2020 Assessment/Plan Diagnoses and all orders for this visit: Psoriatic arthritis (CMS/HCC) (HCC) (Primary) Assessment & Plan: Mod cdai. Just had her 3rd covid vaccine a few days ago. Advised pt to delay her Orencia iv x 1month from vaccine. Continue on imuran to 100mg bid. Had 3 orencia IV infusions so far. If no improvement in 4-6 months discussed changing to xeljanz, discussed the increased risk of clots, infection, lftelevation, anemia, low wbc, risk of cancers. Pt denied hx of clots in past. Check labs today. Advised to get shingrix also. Had her flu vacicne. In 1 month if she is flared up more she can take a short course of prednisone. Also gave her triamcinolone dental paste to use prn for nose ulcers. Past serologies: [facility] panel 08/2019---labs reveal positive anti-[employer]ATCH PLANT OPERATOR antibody which is likely a false positive due tonegative ASHLEY. ?? RF neg but has a possible family hx of psoriatic arthritis (father) so if she develops psoriasis diagnosis will change to psoriatic arthritis. Rt hand US 09/2019 showed: ?? Orders: - CBC with auto differential; Future - Comprehensive metabolic panel; Future - CRP (acute phase); Future - Erythrocyte sedimentation rate; Future Osteoporosis without current pathological fracture, unspecified osteoporosis type Assessment & Plan: bds checked by pcp in past, is taking ca and vit d and pcp checked vit D and PTH per pt was wnl. Her pcp started her on alendronate 70mg po qweek. Taking ca + vit d 1200mg qd. Encounter for long-term (current) use of medications [...] showed osteoporosis [facility] 08/2019---[facility] labs reveal positive anti-BATCH PLANT OPERATOR antibody which is likely a false positive due tonegative ASHLEY. Her father had psoriasis, pt changed from ra to PsA on 03/25/2020. ?? Orders: - CBC with auto differential; Future - Comprehensive metabolic panel; Future - CRP (acute phase); Future - Erythrocyte sedimentation rate; Future Other orders - predniSONE (DELTASONE) 5 mg tablet; Take 2 tabs po every day x 7d, 1 tab po every day x 7d and 1/2 tab po every day x 7d - triamcinolone (KENALOG) 0.1 % paste; Apply 0.5 inches to teeth 2 (two) times a day Cosigned by Cash Heath III, MD at 02/06/2021 3:37 PM CDT documented in this encounter Miscellaneous Notes * Result Encounter Note - Miriam Frye PA - 02/08/2021 1:44 PM CDT Plts slightly elevated, could be due to inflammation. Otherwise labs stable. * Assessment & Plan Note - Miriam Frey PA - 02/06/2021 8:29 AM CDTAssociated Problem(s): Psoriatic arthritis (HCC) Images [...] discussed the increased risk of clots, infection, lftelevation, anemia, low wbc, risk of cancers. Pt denied hx of clots in past. Check labs today. Advised to get shingrix also. Had her flu vacicne. In 1 month if she is flared up more she can take a short course of prednisone. Also gave her triamcinolone dental paste to use prn for nose ulcers. Past serologies: [facility] panel 08/2019---labs reveal positive anti-[employer] OPERATOR antibody which is likely a false positive due tonegative ASHLEY. ?? RF neg but has a possible family hx of psoriatic arthritis (father) so if she develops psoriasis diagnosis will change to psoriatic arthritis. Rt hand US 09/2019 showed: ?? * Assessment & Plan Note - Miriam Frye PA - 02/06/2021 8:29 AM CDTAssociated Problem(s): Osteoporosis without current pathological fracture bds checked by pcp in past, is taking ca and vit d and pcp checked vit D and PTH per pt was wnl. Her pcp started her on alendronate 70mg po qweek. Taking ca + vit d 1200mg qd. * Assessment & Plan Note - Miriam Frye PA - 02/06/2021 8:29 AM CDTAssociated Problem(s): Encounter for long-term (current) [...] showed osteoporosis [facility] 08/2019---[facility] labs reveal positive anti-[employer] OPERATOR antibody which is likely a false positive due tonegative ASHLEY. Her father had psoriasis, pt changed from ra to PsA on 03/25/2020. ?? documented in this encounter Plan of Treatment Not on file documented as of this encounter Procedures Procedure Name Priority Date/Time Associated Diagnosis Comments CBC WITH AUTO DIFFERENTIAL Routine 02/06/2021 2:09 PM CDT Psoriatic arthritis ([facility] ([facility]) Encounter for long-term (current) use of medications ERYTHROCYTE SEDIMENTATION RATE Routine 02/06/2021 2:09 PM CDT Psoriatic arthritis ([facility] ([facility]) Encounter for long-term (current) use of medications CRP (ACUTE PHASE) Routine 02/06/2021 2:0 9 PM CDT Psoriatic arthritis ([facility]) ([facility]) Encounter for long-term (current) use of medications COMPREHENSIVE METABOLIC PANEL Routine 02/06/2021 2:09 PM CDT Psoriatic arthritis (CMS/HCC) (HCC) Encounter for long-term (current) use of medications documented in this encounter Results * Erythrocyte sedimentation rate (02/06/2021 2:09 PM CDT) Erythrocyte sedimentation rate 2 < OR = 20 mm/h [facility] Blood specimen (specimen) 02/06/2021 2:09 PM CDT 02/06/2021 2:09 PM CDT Miriam VALLE LAB BLOOD ORDERAB LES Final Result Performing Organization Address [facility] Co de Phone Number [facility] [address] [place] [address] * CRP (acute phase) (02/06/2021 2:09 PM CDT) C-RP 5.6 <8.0 mg/L [facility] Blood specimen (specimen) 02/06/2021 2:09 PM CDT 02/06/2021 2:09 PM CDT Miriam VALLE LAB BLOOD ORDERAB LES Final Result Performing Organization Address [facility] Co de Phone Number [facility] [address] [place] [address] * Comprehensive metabolic panel (02/06/2021 2:09 PM CDT) Glucose 82 65 - 99 mg/dL [facility] Comment: ? Fasting reference interval BUN 14 7 - 25 mg/dL [facility] Creatinine 0.93 0.50 - 1.10 mg/dL [facility] eGFR NON-AFR. JAPANESE 74 > OR = 60 mL/min/1. 73m2 [facility] EGFR 85 > OR = 60 mL/min/1. 73m2 [facility] BUN/creat ratio NOT APPLICABLE 6 - 22 (calc) [facility] Sodium 136 135 - 146 mmol/L [facility] Potassium, pl 4.4 3.5 - 5.3 mmol/L [facility] Chloride 104 98 - 110 mmol/L [facility] CO2 25 20 - 32 mmol/L [facility] Calcium 9.1 8.6 - 10.2 mg/dL [facility] Protein, sr 7.1 6.1 - 8.1 g/dL [facility] Albumin 4.2 3.6 - 5.1 g/dL [facility] GLOBULIN 2.9 1.9 - 3.7 g/dL (calc) [facility] Alb/glob ratio 1.4 1.0 - 2.5 (calc) [facility] Bilirubin, total 0.3 0.2 - 1.2 mg/dL [facility] Alk phos 76 31 - 125 U/L [facility] AST 12 10 - 35 U/L [facility] ALT (SGPT) 11 6 - 29 U/L [facility] Blood specimen (specimen) 02/06/2021 2:09 PM CDT 02/06/2021 2:09 PM CDT us Miriam VALLE LAB BLOOD ORDERAB LES Final Result [facility] [address] [place] [id number] * (ABNORMAL) CBC with auto differential (02/06/2021 2:09 PM CDT) WBC 9.0 3.8 - 10.8 Thousand/u L [facility] RBC, POC 4.81 3.80 - 5.10 Million/uL [facility] Hgb 14.8 11.7 - 15.5 g/dL [facility] Hct 44.9 35.0 - 45.0 % [facility] MCV 93.3 80.0 - 100.0 fL [facility] MCH 30.8 27.0 - 33.0 pg [facility] MCHC 33.0 32.0 - 36.0 g/dL [facility] Rdw 14.2 11.0 - 15.0 % [facility] Platelets 429(H) 140 - 400 Thousand/u L [facility] MPV 10.0 7.5 - 12.5 fL [facility] Neutrophils, abs 6,570 1,500 - 7,800 cells/uL [facility] Lymphocytes, abs 1,638 850 - 3,900 cells/uL [facility] Monocyte abs 522 200 - 950 cells/uL [facility] Eosinophils, abs 117 15 - 500 cells/uL [facility] Basophils, abs 153 0 - 200 cells/uL [facility] Neutrophils 73 % [facility] Lymphocyte pct 18.2 % [facility] Monocytes 5.8 % [facility] Eosinophils 1.3 % [facility] Basophils 1.7 % [facility] Blood specimen (specimen) 02/06/2021 2:09 PM CDT 02/06/2021 2:09 PM CDT Miriam VALLE LAB BLOOD ORDERAB LES Final Result [facility] [address] [place] [id number] documented in this encounter Visit Diagnoses Diagnosis Psoriatic arthritis (HCC)- Primary Psoriatic arthropathy Osteoporosis without current pathological fracture, unspecified osteoporosis type Encounter for long-term (current) use of medications Encounter for long-term (current) use of other medications documented in this encounter Discontinued Medications Medication Sig Discontinue Reason Start Date End Da te DULoxetine DR (CYMBALTA) 60 mg capsule take 1 capsule by oral route every day Duplicate order 06/29/2015 02/06/2021 ustekinumab (Stelara) injection Inject 0.5 mL (45 mg total) under the skin every 3 (three) months Inject 45 mg SQ day 0, then on day 28 for loading dose. Then inject 45 mg SQ q 12 weeks. Duplicate order 09/28/2020 02/06/2021 documented as of this encounter Care Teams Electronics Hardware Design Engineer Relationship Specialty Start Date End Date Bhupinder Tobias MD [address] [facility] [address] [place] [address] PCP - General Internal Medicine 06/03/20 Isaiah Quiros MD [address] [facility] [address] [place] [address] Internal Medicine 02/18/17 03/19/21 Cash Heath III, MD [address] [place] [address] Rheumatology 04/12/17 Alex Mahajan MD [address] [place] [address] Referring Physician Internal Medicine 05/07/19 1 Bhupinder Tobias MD [address] [facility] [address] [place] [address] Referring Physician Internal Medicine 06/03/20 1 Jorge Aguiar MD [address] [place] [address] Consulting Physician Urology 11/10/20 documented as of this encounter
--- OUTSIDE RECORDS SUMMARY | 2024-04-29 19:23 | XMS_ITS | Encounter Summary ---
[facility] Address [address] [place] [address] Phone Care Team Providers Care Industrial Property Appraiser Name Role Phone Kumar CARRILLO MD, Cash Howard Unavailable [phone] Bhupinder Tobias MD Primary Care Provider [phone] Jorge Aguiar MD Unavailable [phone] Khoa Arias MD Unavailable [phone] Reason for Visit * Reason Onset Date Comments Insurance only approves #30 for Arava 03/31/2021 Encounter Details Date Type Department Care Team (Late st Contact Info) Description 03/31/[address] [address] Ghazala Westbrook Insurance only approves #30 for Arava Social History Tobacco Use Types Packs/Day Years Used Date Smoking Tobacco: Never Alcohol Use Standard Drinks/Week Comments No 0 (1 standard drink = 0.6 oz pur e alcohol) Comments No Sex and Gender Information Value Date Recorded Sex Assigned at Not on file Legal Sex Female 9:24 PM 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 Spoke with pharmacy and let them know that was ok. 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 IC RELATIONS REPRESENTATIVE documented in this encounter Plan of Treatment Not on file documented as of this encounter Visit Diagnoses Not on filedocumented in this encounter Care Teams Industrial Property Appraiser Relationship Specialty Start Date End Date Bhupinder Tobias MD [address] [facility] [address] [address] PCP - General Internal Medicine 06/03/20 Cash Heath III, MD [address] [facility] [address] [place] [address] Rheumatology 04/12/17 Jorge Aguiar MD [address] [place] [address] Consulting Physician Urology 11/10/20 Khoa Arias MD [address] [place] [address] Referring Physician Gastroenterology 03/20/21 documented as of this encounter
--- OUTSIDE RECORDS SUMMARY | 2024-04-29 19:23 | XMS_ITS | Encounter Summary ---
Author Organization [facility] Healthcare Address [address] [place] [address] Care Team Providers Care Transportation Escort Name Role Phone Kumar CARRILLO MD, Cash Howard Unavailable [phone] Bhupinder Tobias MD Primary Care Provider [phone] Jorge Aguiar MD Unavailable [phone] Khoa Arias MD Unavailable [phone] Reason for Visit * Auth/Cert Specialty Diagnoses / Procedures Referred By Kaylynn t Referred To Contact Diagnoses Acute pancreatitis, unspecified complication status, unspecified pancreatitis type Acute pancreatitis, unspecified complication status, unspecified pancreatitis type [K85.90] Procedures CO EDG US EXAM SURGICAL ALTER STOM DUODENUM/JEJUNUM US Endoscopy ESOPHAGOGASTRODUODENOSCOPY Referral ID Status Reason Start Date Expiration Date Visits Re quested Visits Authorized [id number] 1 1 Encounter Details Date Type Department Care Team (Latest Contact Info) Description 08/31/2021 9:55 AM CDT - 08/31/2021 12:00 PM CDT Hospital Encounter [facility] [address] [facility] [address] [place] [address] Devin Miller MD [address] [facility] [address] [place] [address] Acute pancreatitis, unspecified complication status, unspecified pancreatitis type Discharge Disposition: Discharge to home or self [...] on file Legal Sex Female 9:24 PM QA CONSULTANT Gender Identity Female 08/14/2022 11:32 AM CDT Sexual Orientation Straight 02/13/2023 7: 01 AM CDT documented as of this encounter Last Filed Vital Signs Vital Sign Reading Time Taken Comments Blood Pressure 114/76 08/31/2021 11:48 AM CDT Pulse 66 08/31/2021 11:48 AM CDT Temperature 36.5 ??C (97.7 ??F) 08/31/2021 10:58 AM C DT Respiratory Rate 15 08/31/2021 11:48 AM CDT Oxygen Saturation 95% 08/31/2021 11:48 AM CDT Inhaled Oxygen Concentration - - [...] PO BID WF AND WATER 12/15/18 Yes John Montero MD buPROPion XL (WELLBUTRIN XL) 300 mg 24 hr tablet Take 300 mg by mouth Yes John Montero MD dicyclomine (BENTYL) 10 mg capsule Take [...] ??? Smoking status: Former Smoker Quit date: 2012 Years since quittin.3 ??? Smokeless tobacco: Not [...] every 6 hours as needed 07/23/18 Yes ProviderJohn MD DULoxetine DR (CYMBALTA) 60 mg capsule 60 mg daily Yes John Montero MD HYDROcodone-acetaminophen (NORCO) 5-325 mg [...] 05/12/21 Yes Cash Heath III, MD pantoprazole DR (PROTONIX) 40 mg EC tablet TAKE 1 TABLET(40 MG) BY MOUTH DAILY 30 MINUTES BEFORE BREAKFAST 12/21/15 Yes John Montero MD polyethylene glycol (MIRALAX) 17 gram/dose powder Take 17 g by mouth 2 (two) times a day as needed 12/29/18 Yes John Montero MD potassium citrate ER (UROCIT-K) 15 mEq tablet extended release TK 1 T PO BID 12/19/18 Yes John Montero MD propranoloL (INDERAL) 10 mg tablet Take 10 mg by mouth daily 08/03/21 Yes John Montero MD Saccharomyces boulardii (FLORASTOR) 250 mg capsule [...] Order(s): [facility] Patient Name: Julian Sauer Procedure Date: 08/31/2021 10:04 AM Date of : 1975 Admit Type: Outpatient Age: 46 Gender: Female Attending MD: Devin Miller M.D. Room: [facility] ENDOSCOPY ROOM 1 Note Status: Finalized Procedure: [...] The Olympus curved linear array therapeutic endosonoscope [id number] was introduced through the and advanced to the GIF H190 [id number] endoscope was introduced through the and advanced [...] On: 08/31/2021 10:04 AM Recognized by the [employer] for promoting quality [...] biopsy) 08/31/2021 10:39 AM CDT Narrative PATHOLOGY [facility] - 09/01/2021 11:52 PM CDT EPIC results best viewed via link to PDF [facility] [place] [address] Note to Patients: This report may contain [...] REPORT FINAL Patient Name: ?? JULIAN SAUER Cirilo Gender: ??F : ??1975 (Age: 46) Address: ??[address] [place] [address] ??[id number] Hospital #: ??[id number] Taken:08/31/2021 Received:08/31/2021 Reported: 09/01/2021 Patient Type: [facility] SDS ?? Service: Gastro Location: Physician(s): ??Salvador Ritter M.D. Diagnosis: A. ??Stomach, random, endoscopic biopsy [...] the duodenum. ??Clinical correlation is suggested. NIECY ePterson History: The patient is a 46-year-old woman [...] Surgical Pathology and Flow Cytometry Departments at [facility] as part of an ongoing quality assurance monitor chassis program and in compliance with federally mandated [...] Surgical Pathology and Flow Cytometry Departments of [facility]. ??It has not been cleared or approved by the U. S. Food and Drug Administration. IMAGES AND SCANNED DOCUMENTS, IF INCLUDED, ONLY VIEWABLE IN PDF VERSION OF REPORT Devin Miller MD LAB PATHOLOGY ORDERABLES F inal Result PATHOLOGY [facility] [address] [place], [place] [phone] * POCT hCG, urine (08/31/2021 10:23 AM CDT) HCG, ur, POC Negative Lot Number [id number]\ QC Backgroud Clear Acceptable QC Control Line [...] Female Attending MD: Devin Miller M.D. Room: [facility] ENDOSCOPY ROOM 1 Note Status: Finalized Procedure: [...] was obtained. The Olympuscurved linear array therapeutic [id number] was introduced through the and advanced to the GIF H190 [id number] endoscope was introduced through theand advanced to [...] On: 08/31/2021 10:04 AM Recognized by the [employer] for promoting quality [...] Mily Dyer CRNA)1130 (Stopped - Provider: Danielle Montes RN) PRN Medication Order 08/29/2021 08/30/2021 08/31/2021 ondansetron [...] 08/31/2021 documented in this encounter Care Teams Transportation Escort Relationship Specialty Start Date End Date Bhupinder Tobias MD [address] [place] [address] PCP - General Internal Medicine 06/03/20 Cash Heath III, MD [address] [place] [address] Rheumatology 04/12/17 Jorge Aguiar MD [address] [place] [address] Consulting Physician Urology 11/10/20 Khoa Arias MD [address] [facility] [facility] [facility] [address] [place] [address] Referring Physician Gastroenterology 03/20/21 documented as of this encounter
--- OUTSIDE RECORDS SUMMARY | 2024-04-29 19:23 | XMS_ITS | Encounter Summary ---
Author Organization [facility] Address [address] [place] [address] Phone Care Team Providers Care Casting Operator Name Role Phone Kumar CARRILLO MD, Cash Howard Unavailable [phone] Bhupinder Tobias MD Primary Care Provider [phone] Jorge Aguiar MD Unavailable [phone] Khoa Arias MD Unavailable [phone] Encounter Details Date Type Department Care Team (Late st Contact Info) Description 06/26/2021 Telephone [facility] [address] [place] [address] Miriam Frye PA [address] [place] [address] Social History Tobacco Use Types Packs/Day Years Used Date Smoking Tobacco: Never Alcohol Use Standard Drinks/Week Comments No 0 (1 standard drink = 0.6 oz pur e alcohol) Comments No Sex and Gender Information Value Date Recorded Sex Assigned at Not on file Legal Sex Female 9:24 PM 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 ty. THOUSE KEEPER documented in this encounter Plan of Treatment Not on file documented as of this encounter Visit Diagnoses Not on filedocumented in this encounter Care Teams Casting Operator Relationship Specialty Start Date End Date Bhupinder Tobias MD [address] [address] PCP - General Internal Medicine 06/03/20 Cash Woodruff III, MD [address] [facility] [address] [place] [address] Rheumatology 04/12/17 Jorge Aguiar MD [address] [address] Consulting Physician Urology 11/10/20 Khoa Arias MD [address] [address] Referring Physician Gastroenterology 03/20/21 documented as of this encounter
--- OUTSIDE RECORDS SUMMARY | 2024-04-29 19:23 | XMS_ITS | Encounter Summary ---
Author Organization Formerly [facility] Address [address] [place] [address] Care Team Providers Care Small Business Sales Representative Name Role Phone Kumar CARRILLO MD, Cash Howard Unavailable Bhupinder Tobias MD Primary Care Provider [phone] Jorge Aguiar MD Unavailable [phone] Khoa Arias MD Unavailable [phone] Reason for Visit * Reason Comments Abdominal Pain Encounter Details Date Type Department Care Team (Late st Contact Info) Description 07/23/2021 7:32 PM CDT - 07/24/2021 12:47 AM CDT Emergency [facility] Emergency Department [address] [place] [address] Garrison Rhoades MD 1 [facility] [address] [place] [address] Teresita Esparza MD [address] [facility] [address] [place] [address] Aspiration pneumonia, unspecified aspiration pneumonia type, unspecified laterality, unspecified part of lung (HCC) [...] on file 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 Gender Identity Female 08/14/2022 11:32 AM CDT Sexual Orientation Straight 02/13/2023 7: 01 AM CDT documented as of this encounter Last Filed Vital Signs Vital Sign Reading Time Taken Comments Blood Pressure 115/79 07/24/2021 12:30 AM CDT Pulse 98 07/24/2021 12:30 AM CDT Temperature 36.9 ??C (98.5 ??F) 07/23/2021 6:44 PM CD T Respiratory Rate 18 07/23/2021 6:44 PM CDT Oxygen Saturation 95% 07/24/2021 12:30 AM CDT Inhaled Oxygen Concentration - - Weight 81.6 kg (180 lb) 07/23/2021 6:44 PM CDT Height 165.1 cm (5' 5 ) 07/23/2021 6:44 PM CDT Body Mass Index 29.95 07/23/2021 6:44 PM CDT documented in this encounter Discharge Diagnoses Diagnosis Pneumonitis due to inhalation of food and vomit (CMS/HCC) (HCC) - PNEUMONITIS DUE TO INHALATION OF FOOD AND VOMIT Personal history of urinary calculi - PERSONAL HISTORY OF URINARY CALCULI Personal history of other diseases of the digestive system - PERSONAL HISTORY OF OTHER DISEASES OF THE DIGESTIVE SYSTEM 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 diarrhea - IRRITABLE BOWEL SYNDROME WITHOUT DIARRHEA Rheumatoid arthritis, unspecified (HCC) - RHEUMATOID ARTHRITIS, UNSPECIFIED Family history of malignant neoplasm of trachea, bronchus and lung - FAMILY HISTORY OF MALIGNANT NEOPLASM OF TRACHEA, BRONCHUS AND LUNG Family history of malignant neoplasm of trachea, bronchus, and lung Family history of other diseases of the digestive system - FAMILY HISTORY OF OTHER DISEASES OF THE DIGESTIVE SYSTEM documented in this encounter Discharge Instructions * Discharge Instructions* Sophia Bahena MD - 07/24/2021 12:00 AM CDT As discussed, you have been seen in the [facility] ED for shortness of breath, nausea and vomiting. While here, you had labs and imaging performed which did not show any signs of an acute pancreatitis, lungclot, or obstructive kidney stones, we believe your symptoms are due to your chronic pancreatitis and a new aspiration pneumonia we believe is due to your vomiting. 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 You have been prescribed antibiotics, please take them as prescribed If you have any shortness of breath, fever, chills, dizziness, headache, fatigue, chest pain, numbness, weakness, and worsening pain, tachycardia, or Nausea or vomiting, unable to tolerate a diet please return to the ED immediately. * Attachments The following attachments cannot be sent through Care Everywhere. * Aspiration Pneumonia (Spot Cleaner) (Italian) documented in this encounter Medications at Time of Discharge buPROPion XL (WELLBUTRIN XL) 300 mg 24 hr tablet Take 300 mg by mouth dicyclomine (BENTYL) 10 mg capsule Take 10 mg by mouth every 6 hours as needed 07/23/[address] (CYMBALTA) 60 mg capsule 60 mg daily HYDROcodone-acetami nophen (NORCO) 5-325 mg per tabletIndications:P ain Take 1 tablet by mouth every 4 (four) hours as needed for pain Do not exceed 8 tablets/day. 10 tablet 06/30/[address] (PROTONIX) 40 mg EC tablet TAKE 1 TABLET(40 MG) BY MOUTH DAILY 30 MINUTES BEFORE BREAKFAST 12/21/2015 potassium citrate ER (UROCIT-K) 15 mEq tablet extended release TK 1 T PO BID 6 12/19/2018 SUMAtriptan (IMITREX) 50 mg tabletIndications:M igraine TK 1 T PO AOS OF MIGRAINE. MAY REPEAT AFTER 2 H IF MERCADO RETURNS. MAXIMUM 4 TS IN 24 H 0 07/09/2016 tamsulosin (FLOMAX) 0.4 mg extended release capsuleIndications: Urolithiasis Take 1 capsule (0.4 mg total) by mouth daily 30 capsule 06/30/2021 traZODone (DESYREL) 100 mg tablet Take 100 mg by mouth amoxicillin-clavula hiram (AUGMENTIN) 875-125 mg per tablet Take 1 tablet by mouth 2 (two) times a day for 7 days 14 tablet 07/23/2021 07/31/19 22 doxycycline (doxycycline hyclate) 100 mg capsuleIndications: Pneumonia, Aspiration Take 1 tablet/capsule (100 mg total) by mouth 2 (two) times a day for 7 days 14 tablet/capsul e 07/23/2021 07/31/19 22 alendronate (FOSAMAX) 70 mg tablet 1 09/02/2018 01/18/20 23 AMITIZA 24 mcg capsule TK ONE C PO BID WF AND WATER 1 12/15/2018 01/18/20 23 clonazePAM (KlonoPIN) 0.5 mg tablet 3 07/30/2018 08/31/19 22 cyclobenzaprine (FLEXERIL) 5 mg tablet TAKE 1 TABLET BY ORAL ROUTE EVERY BEDTIME 30 0 11/03/2015 08/31/19 22 diclofenac sodium 20 mg/gram /actuation(2 %) solution in metered-dose pump Apply 40 mg topically 2 (two) times a day 112 g 1 10/19/2019 01/18/20 23 doxycycline (DORYX) 100 mg EC tablet 100 mg every 12 (twelve) hours 12/19/2016 08/31/19 22 guaiFENesin-dextrom ethorphan ER (MUCINEX DM) 600-30 mg tablet extended release 12 hr Take 1 tablet by mouth 02/02/2017 08/31/19 22 hyoscyamine (OSCIMIN) 0.125 mg Take 0.125 mg by mouth every 3 hours 08/05/2015 08/31/19 22 leflunomide (ARAVA) 20 mg tabletIndications:P soriatic Arthritis Take 1 tablet (20 mg total) by mouth daily 90 tablet 1 05/05/2021 09/12/19 22 linaclotide (LINZESS) 145 mcg capsule Take 145 mcg by mouth 09/15/2015 09/01/19 22 LYRICA 75 mg capsule TK ONE C PO BID 2 08/17/2018 09/01/19 22 norethindrone-ethin yl estradiol-iron (MICROGESTIN FE .,) 1.5 mg-30 mcg per tablet Take 1 tablet by mouth daily 84 tablet 4 12/24/2018 08/31/19 22 omeprazole (PriLOSEC) 10 mg capsule take 2 capsule by oral route every day before a meal 0 0 05/17/2016 08/31/19 22 ondansetron ODT (ZOFRAN-ODT) 4 mg disintegrating tablet Dissolve 1 tablet for mild to moderate nausea or vomiting or 2 tablets for severe nausea or vomiting oral twice a day as needed. 15 tablet 07/23/2021 11/01/19 22 ondansetron ODT (ZOFRAN-ODT) 8 mg disintegrating tablet DISSOLVE 1 TABLET(8 MG) ON THE TONGUE EVERY 8 HOURS NEEDED FOR NAUSEA OR VOMITING 60 tablet 05/12/2021 11/01/19 22 oxyCODONE (ROXICODONE) 5 mg immediate release tabletIndications:P ain Take 1 tablet (5 mg total) by mouth every 4 (four) hours as needed for pain for up to 10 doses 10 tablet 07/23/2021 08/31/19 22 oxyCODONE-acetamino phen (PERCOCET) 5-325 mg per tablet TK 1 T PO PRN Q 6 H 0 09/03/2018 08/31/19 22 polyethylene glycol (MIRALAX) 17 gram/dose powder Take 17 g by mouth 2 (two) times a day as needed 12/29/2018 01/18/20 23 pregabalin (LYRICA) 100 mg capsule Take 100 mg by mouth 08/31/19 22 raNITIdine (ZANTAC) 50 mg/2 mL (25 mg/mL) injection infuse by intravenous route every 8 hours over 0 vial 0 05/17/2016 08/31/19 22 Saccharomyces boulardii (FLORASTOR) 250 mg capsule Take 250 mg by mouth 02/02/2017 01/18/20 23 sucralfate (CARAFATE) suspension 1 gram/10 mL TAKE 10 ML BY MOUTH FOUR TIMES DAILY BEFORE MEALS AND NIGHTLY 10/15/2017 09/01/19 22 topiramate (TOPAMAX) 100 mg tablet Take 200 mg by mouth 08/31/19 22 traMADoL (ULTRAM) 50 mg tablet TAKE 1 TABLET(50 MG) BY MOUTH EVERY 8 HOURS NEEDED FOR PAIN 90 tablet 06/09/2021 08/31/19 22 triamcinolone (KENALOG) 0.1 % paste Apply 0.5 inches to teeth 2 (two) times a day 15 g 02/06/2021 04/25/19 23 VENTOLIN HFA 90 mcg/actuation inhaler INL 1 TO 2 PFS PO Q 4 TO 6 H PRF COUGH 0 11/08/2018 08/31/19 22 documented as of this encounter Ordered Prescriptions Prescription Sig Dispense Quantity Refills Last Filled Start Date End Date doxycycline (doxycycline hyclate) 100 mg capsuleIndications:P neumonia, Aspiration Take 1 tablet/capsule (100 mg total) by mouth 2 (two) times a day for 7 days 14 tablet/capsul e 07/23/2021 2 amoxicillin-clavulan ate (AUGMENTIN) 875-125 mg per tablet Take 1 tablet by mouth 2 (two) times a day for 7 days 14 tablet 07/23/2021 2 oxyCODONE (ROXICODONE) 5 mg immediate release tabletIndications:Pa in Take 1 tablet (5 mg total) by mouth every 4 (four) hours as needed for pain for up to 10 doses 10 tablet 07/23/2021 2 ondansetron ODT (ZOFRAN-ODT) 4 mg disintegrating tablet Dissolve 1 tablet for mild to moderate nausea or vomiting or 2 tablets for severe nausea or vomiting oral twice a day as needed. 15 tablet 07/23/2021 2 documented in this encounter Discharge Disposition Disposition Code Departure Means Destination Discharge to home or self care documented in this encounter ED Notes * Garrison Rhoades MD - 07/23/2021 7:27 PM CDT HPI Chief Complaint Patient presents with ??? Abdominal Pain HPI Mrs. Smith is a 46 y/o woman w/PMH of diverticulosis, bilateral kidney stones, pancreatitis, psoriatic arthritis, Meredith-Danlos, migraine, hepatic hemangiomas p/w worsening epigastric pain and fever as well as new SOB. She reports onset of abdominal pain around February when she was diagnosed with pancreatitis, has ongoing epigastric abdominal pain since. She was recently seen in the ED 06/30 for similar epigastric abdominal pain CT AP negative for pancreatitis with non-obstructing kidney stones elevated lipase treated for kidney stones. She was seen by GI 07/20 with mildly elevated lipase started on amitriptyline. 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 She also states she had an EGD and colonoscopy done in the last year that were normal (no records in system). She has had a 65 pound weight loss since the start of her symptoms. She reports worsening epigastric pain for past few days constant not associated with food with radiation to back associated N&V NBNB and decreased po intake. She also reports fever this am 100.5.She has new SOB that woke her up from her sleep improved with O2 she reports desating to high 80s on home pulse ox as well as intermittent CP lasting few seconds not associated with exertion on both s ides. She also reports increased She has a history of recurrent kidney stones denies urinary sx, hematuria says this pain is different. She denies bloody stools, dizziness, syncope. Per her tachycardia patient reports she was seen by class b driver in [facility]: Alcohol: Rare use, Drug use: Denies In ED tachycardia 128 sating well on RA, mild distress Patient History: Patient Active Problem List Diagnosis Date Noted ??? Abdominal pain 03/31/2021 ??? Trochanteric bursitis [...] 09/09/2014 Past Medical History: Diagnosis Date ??? Diverticulitis ??? Meredith-Danlos syndrome ??? Hemorrhoid ??? IBS (irritable bowel syndrome) ??? Kidney stone ??? Migraine ??? RA (rheumatoid arthritis) (HCC) Past Surgical History: Procedure Laterality Date ??? SECTION ??? FACIAL SURGERY ??? KNEE SURGERY knee surgery ??? LITHOTRIPSY ??? TONSILLECTOMY Family History Problem Relation Age of Onset ??? Cancer Other Family history of Cancer, unknown; ??? Lung cancer Other Family history of Cancer, lung; ??? Skin cancer Other Family history of Cancer, skin; ??? Other Other Family history of lymphatic; ??? Crohn's disease Other Family history of Crohn's disease; Social History Tobacco Use ??? Smoking status: Never Smoker Substance Use Topics ??? Alcohol use: No ??? Drug use: Never Social History Social History Narrative ??? Not on file Review of Systems Review of Systems All other systems reviewed and are negative. Physical Exam ED Triage Vitals [07/23/21 1844] Temp Pulse Resp BP SpO2 36.9 ??C (98.5 ??F) (!) 128 18 118/83 99 % Temp src Heart Rate Source Patient Position BP Location FiO2 (%) -- -- -- -- -- Physical Exam Constitutional: General: She is not in acute distress. Appearance: She is well-developed. She is not ill-appearing, toxic-appearing or diaphoretic. HENT: Head: Normocephalic. Mouth/Throat: Mouth: Mucous membranes are moist. Pharynx: No pharyngeal swelling or oropharyngeal exudate. Eyes: General: No scleral icterus. Extraocular Movements: Extraocular movements intact. Cardiovascular: Rate and Rhythm: Regular rhythm. Tachycardia present. Heart sounds: No murmur heard. No gallop. Pulmonary: Effort: Pulmonary effort is normal. No respiratory distress. Breath sounds: No wheezing or rales. Abdominal: General: Abdomen is flat. There is no distension. There are no signs of injury. Palpations: There is no shifting dullness, fluid wave, hepatomegaly or mass. Tenderness: There is generalized abdominal tenderness and tenderness in the epigastric area. There is left CVA tenderness. There is no guarding or rebound. Negative signs include Noguera's sign and Rovsing's sign. Hernia: No hernia is present. There is no hernia in the umbilical area or right inguinal area. Comments: Diffusely tender worse epigastric tenderness. Skin: General: Skin is warm. Capillary Refill: Capillary refill takes less than 2 seconds. Coloration: Skin is not pale. Findings: No rash. Neurological: General: No focal deficit present. Mental Status: She is alert. Psychiatric: Mood and Affect: Mood normal. [facility] Medical Decision Making Differential Diagnosis or Management Options: Given hx of chronic pancreatitis unknown etiology possible worsening of chronic pancreatitis vs cholecystitis vs liver diease, SOB and Intermittent CP may be referred, however concern for PE given new SOB hypoxia and fever with worsening tachycardia. Possible 2/2 obstructing kidney stones given flank pain however pain is not colicky no urinary sx vs pyelonephritis. Tachycardia likely 2/2 hypovolemia given N&V vs PE less likely blood loss,. Plan; CBC, CMP, UA, POC HCG, CT PE CAP Attending Summary of Care ED Course as of 07/26/21 0916 Time: 07/23 2002 Comment: 46 yo female with history of bilateral recurrent renal calculi, pancreatitis, psoriatic arthritis presents with fever and epigastric pain. Has had abdominal pain since February, when she was diagnosed with pancreatitis, but pain has worsened over the past few days, as well as nausea, vomiting, and temp of 100.5 today. Endorses new dyspnea and hypoxia at home (88% on home pulse ox). Exam notable for tachycardia - states she is usually in the low 100s but presented here to 128. By: Garrison Rhoades MD Time: 07/23 2212 Comment: Labs notable for leukocytosis 15.4, CMP WNL, Lipid panel normal, lipase 67 By: Sophia Bahena MD Time: 07/23 2216 Comment: She reports abdominal pain 5/10 nausea resolved less tachycardia in 100s By: Sophia Bahena MD Time: 07/23 231 Comment: CT Chest PE Abdomen Pelvis 1. No evidence of pulmonary embolism or pancreatitis. 2. Patchy groundglass opacities throughout the right lung with a peripheral and basilar predominance, favored to represent multifocal pneumonia, possibly related to aspiration. By: Sophia Bahena MD Time: 07/24 2343 Comment: UA with RBC 21-50 contaminated bilateral non-obstructing kidney stones (hx of recurrent kidney stones) By: Sophia Bahena MD Time: 07/23 2345 Comment: Discussed discharge on antibiotics for R. Lobe aspiration pneumonia no evidence of acute pancreatitis, PE, aortic dissection other infectious etiology, will give additional pain medication and zofran for sx control. F/u PCP and GI By: Sophia Bahena MD Aspiration pneumonia, unspecified aspiration pneumonia type, unspecified laterality, unspecified part of lung (HCC) Sophia Bahena MD 07/24/21 4126 Sophia Bahena MD 07/26/21 6934 I have seen and examined the patient on 07/23/2021. I agree with the findings and plan of care as documented in the resident's note. Garrison Rhoades MD 07/27/21 0521 * Angeline Solano RN - 07/23/2021 6:46 PM CDT Pt recently diagnosed with pancreatitis presents to ED c/o epigastric pain radiating to left flank x2 days. Endorses associated SOB, nausea. Pt speaking in complete sentences/respirations even and unlabored NAD noted. documented in this encounter Miscellaneous Notes * ED Procedure Note - Miller Schrader MD - 07/23/2021 6:57 PM CDT Associated Order(s): ECG 12 lead Procedure ECG 12 lead Date/Time: 07/23/2021 6:57 PM Performed by: Miller Schrader MD Authorized by: Salvador Thayer MD Rate: ECG rate: 123 ECG rate assessment: tachycardic Rhythm: Rhythm: sinus tachycardia Ectopy: Ectopy: none QRS: QRS axis: Normal QRS intervals: Normal Conduction: Conduction: normal ST segments: ST segments: Non-specific T waves: T waves: non-specific Previous ECG: Previous ECG: Compared to current Date of previous EC03/28/2015 Interpretation: Interpretation: No significant change Recommended Follow-up: Recommended follow up: further workup in the ED Miller Schrader MD 07/23/21 5877 documented in this encounter Plan of Treatment Not on file documented as of this encounter Procedures Procedure Name Priority Date/Time Associated Diagnosis Comments CT CHEST PE ABDOMEN PELVIS W CONTRAST ED 07/23/2021 10:48 PM CDT POCT HCG, URINE Routine 07/23/2021 10:03 PM CDT URINALYSIS AND REFLEX TO MICROSCOPIC AND CULTURE STAT 07/23/2021 9:47 PM CDT URINALYSIS, MICROSCOPIC ONLY STAT 07/23/2021 9:47 PM CDT EGFR STAT 07/23/2021 9:11 PM CDT DIFFERENTIAL AUTO STAT 07/23/2021 9:1 1 PM CDT CBC WITH AUTO DIFFERENTIAL STAT 07/23/2021 9:11 PM CDT MAGNESIUM STAT 07/23/2021 9:11 PM CDT LIPASE STAT 07/23/2021 9:11 PM CDT LIPID PANEL STAT 07/23/2021 9:11 PM CDT COMPREHENSIVE METABOLIC PANEL STAT 07/23/2021 9:11 PM CDT ECG 12-LEAD STAT 07/23/2021 6:57 PM CDT documented in this encounter Results * CT Chest PE (CTA) Abdomen Pelvis W Contrast (07/23/2021 10:48 PM CDT) Anatomical Region Laterality Modality Body N/A Computed Tomogra phy 07/23/2021 11:0 8 PM CDT Impressions 07/24/2021 9:14 AM CDT 1. ??No evidence of pulmonary embolism or pancreatitis. 2. ??Patchy groundglass opacities throughout the right lung with a peripheral and basilar predominance, favored to represent multifocal pneumonia, possibly related to aspiration. Dictated by: Clinton Alonzo M.D. The radiology attending physician has personally reviewed this study, and had reviewed and/or edited this written report and agrees with it. Electronically signed by: Mahendra Dong M.D. Narrative 07/24/2021 9:14 AM CDT EXAMINATION: CT CHEST PE (CTA) ABDOMEN [...] administration of 95 ml of nonionic contrast. ??Multiplanar reformatted images and three-dimensional images were obtained on the 3-D workstation and sent to the PACS archival system. ?? COMPARISON: 06/30/2021 FINDINGS: There is no pulmonary embolism or acute aortic syndrome. Heart size is normal without pericardial effusion. ??The visualized thyroid is normal. ??There is no lymphadenopathy in the supraclavicular, axillary, hilar, or mediastinal regions. ??Calcified mediastinal and left hilar lymph nodes are present, likely sequelae of old granulomatous disease. Lung windows demonstrate patchy areas of groundglass in the right lung with a peripheral and basilar predominance. ??The left lung is clear. ??No pleural effusion or pneumothorax. No suspicious hepatic lesions. ??Tiny hypoattenuating lesion in hepatic segment 6 is indeterminate and unchanged. ??Small peripherally hyperenhancing lesion in the lower right hemiliver is favored to represent a flash filling hemangioma (series 11, image 64), unchanged. ??The gallbladder is normal. ??No biliary ductal dilatation. The adrenal glands and pancreas are normal. ??Scattered calcified granulomata in the spleen. ??Small simple cyst in the interpolar region of the left kidney. ??Multiple tiny nonobstructive renal calculi bilaterally. ??No hydronephrosis. The stomach and duodenum are normal. ??The small bowel and colon are normal in caliber without evidence of obstruction. ??Numerous diverticula are seen along the colon without surrounding stranding. A normal appendix is seen in its entirety. Urinary bladder is unremarkable. ??The uterus is normal. ??No suspicious adnexal lesions. ??No free air or free fluid. The abdominal aorta is normal in course and caliber. ??Portal, hepatic, superior mesenteric veins are patent. ??No suspicious lymphadenopathy in the abdomen or pelvis. Sacralized L5. ??No suspicious osseous lesions. Procedure Note Mahendra Dong MD - 07/24/2021 EXAMINATION: CT CHEST PE (CTA) ABDOMEN PELVIS [...] and agrees with it. Electronically signed by: Mahendra Dong M.D. Sophia Bahena MD IMG CT PROCEDURES Final Re sult * POCT hCG, urine (07/23/2021 10:03 PM CDT) HCG, ur, POC Negative Lot Number [id number] QC Backgroud Clear Acceptable QC Control Line Acceptable Urine 07/23/2021 10:0 3 PM CDT Sophia Bahena MD POINT OF CARE TEST ORDERAB LES Final Result * (ABNORMAL) Urinalysis, microscopic only (07/23/2021 9:47 PM CDT) Pathologist [facility] WBC, ur 0-5 0 - 5 /HPF [facility] RBC, ur 21-50(A) 0 - 2 /HPF [facility] Epithelial cells, squamous, ur 6-10(A) 0 - 5 /HPF [facility] Comment:Suggestive of contam ination. Consider recollection by clean catch. Mucous, ur Present(A) [facility] Culture Reflex Comment Reflex conditions for urine culture (WBC >10) not met. [facility] Urine 07/23/2021 9:47 PM CDT 07/23/2021 10:13 PM CDT Sophia Bahena MD LAB URINE ORDERABLES Final Result [facility] Department [place] [address] * (ABNORMAL) Urinalysis reflex to microscopic and culture Urine (07/23/2021 9:47 PM CDT) Color, ur Yellow Yellow [facility] Clarity, ur Clear Clear [facility] Specific gravity, ur 1.025 1.003 - 1.030 [facility] pH, urine 6.0 [facility] Protein, ur ql Trace Negative [facility] Glucose, ur ql Negative Negative [facility] Ketones, ur Negative Negative [facility] Bilirubin, ur Negative Negative [facility] Blood, ur 1+(A) Negative [facility] Urobilinogen, ur <2.0 <2.0 mg/dL [facility] Nitrite, ur Negative Negative [facility] Leukocyte esterase, ur 1+(A) Negative [facility] UA reflex comment Reflex to microscopic UA will be performed. [facility] Urine 07/23/2021 9:47 PM CDT 07/23/2021 10:13 PM CDT Narrative [facility] - 07/23/2021 10:16 PM CDT ?? Urine pH is affected by diet, medications, systemic acid-base disturbances, and renal tubular function. ??pH may affect urinary stone formation. ??For example, urine pH below 6.0 may help reduce the tendency for calcium phosphate stones and pH greater than 6.0 may reduce the tendency for uric acid stone formation. Source: [facility] [employer]. Last revised 05-02-2017 Sophia Bahena MD LAB MICROBIOLOGY - GENERAL ORDERABLES Final Result [facility] Department [place] [address] * (ABNORMAL) eGFR (07/23/2021 9:11 PM CDT) eGFR 67(L) 90 - 130 mL/min/1. 73 m2 [facility] Comment: Interpretive Data Reference Interval Normal ?>/= [...] interpretive data was last reviewed 2021. Blood 07/23/2021 9:11 PM CDT 07/23/2021 9:53 PM CDT Sophia Bahena MD LAB BLOOD ORDERABLES Final Result [facility] Department [place] [address] * (ABNORMAL) Differential, auto (07/23/2021 9:11 PM CDT) Neutrophil abs 12.6(H) 1.7 - 6.5 K/cumm [facility] Imm gran abs 0.1 0.0 - 0.1 K/cumm [facility] Lymphocyte abs 1.7 0.8 - 3.3 K/cumm [facility] Monocyte abs 0.7 0.2 - 0.8 K/cumm [facility] Eosinophil abs 0.2 0.0 - 0.5 K/cumm [facility] Basophil abs 0.1 0.0 - 0.1 K/cumm [facility] Neutrophil pct 81.9 % [facility] [facility] Comment: Interpretive Data Percent cell count reference ranges are not reported, since discordance with absolute values may lead to misinterpretation of CBC data. Current Interpretive Data was last revised on 2017. Imm gran pct 0.4 % [facility] Comment: Interpretive Data Percent cell count reference ranges are not reported, since discordance with absolute values may lead to misinterpretation of CBC data. Current Interpretive Data was last revised on 2017. Lymphocyte pct 11.1 % [facility] Comment: Interpretive Data Percent cell count reference ranges are not reported, since discordance with absolute values may lead to misinterpretation of CBC data. Current Interpretive Data was last revised on 2017. Monocyte pct 4.5 % [facility] Comment: Interpretive Data Percent cell count reference ranges are not reported, since discordance with absolute values may lead to misinterpretation of CBC data. Current Interpretive Data was last revised on 2017. Eosinophil pct 1.4 % [facility] Comment: Interpretive Data Percent cell count reference ranges are not reported, since discordance with absolute values may lead to misinterpretation of CBC data. Current Interpretive Data was last revised on 2017. Basophil pct 0.7 % [facility] Comment: Interpretive Data Percent cell count reference ranges are not reported, since discordance with absolute values may lead to misinterpretation of CBC data. Current Interpretive Data was last revised on 2017. Blood 07/23/2021 9:11 PM CDT 07/23/2021 9:53 PM CDT Sophia Bahena MD LAB BLOOD ORDERABLES Final Result Performing Organization Address City/State/[facility] Co de Phone Number [facility] Department [place] [address] * Lipid panel (07/23/2021 9:11 PM CDT) Cholesterol 185 30 - 199 mg/dL [facility] Comment: Interpretive Data Ages < or = 19 years ??Acceptable: ? <170 mg/dL ??Borderline high: ??170-199 mg/dL ??High: ? >or= 200 mg/dL Ages > or = 20 years ??Desirable: ?<200 mg/dL ??Borderline high: ??200-239 mg/dL ??High: ? >or= 240 mg/dL Literature References: 1. Expert Panel on Integrated Guidelines for Cardiovascular Health and Risk Reduction in Children and Adolescents. Pediatrics 2011;128:S213 2. NCEP Expert Panel. Circulation 2004;110:227 Current Interpretive Data was last revised on 2017. Triglycerides 85 <=149 mg/dL [facility] Comment: Interpretive Data Ages < or = 9 years ??Acceptable: ? <75 mg/dL ??Borderline high: ??75-99 mg/dL ??High: ? >or= 100 mg/dL Ages 10 to 20 years ??Acceptable: ? <90 mg/dL ??Borderline high: ??90-129 mg/dL ??High: ? >or= 130 mg/dL Ages > or = 20 years ??Desirable: ?<150 mg/dL ??Borderline high: ??150-199 mg/dL ??High: ? 200-499 mg/dL ?Very high: ?? >or= 499 mg/dL Literature References: 1. Expert Panel on Integrated Guidelines for Cardiovascular Health and Risk Reduction in Children and Adolescents. Pediatrics 2011;128:S213 2. NCEP Expert Panel. Circulation 2004;110:227 Current Interpretive Data was last revised on 2017. HDL 55 >=40 mg/dL [facility] Comment: Interpretive Data Ages < or = 19 years ??Acceptable: ? >45 mg/dL ??Borderline low: ?? 40-45 mg/dL ??Low: ? <40 mg/dL Ages > or = 20 years ??Desirable: ?>or= 60 mg/dL ??Low: ? <40 mg/dL Literature References: 1. Expert Panel on Integrated Guidelines for Cardiovascular Health and Risk Reduction in Children and Adolescents. Pediatrics 2011;128:S213 2. NCEP Expert Panel. Circulation 2004;110:227 Current Interpretive Data was last revised on 2017. LDL, calculated 113 <=129 mg/dL [facility] Comment: Interpretive Data Ages < or = 19 years ??Acceptable: ? <110 mg/dL ??Borderline high: ??110-129 mg/dL ??High: ?>or= 130 mg/dL Ages > or = 20 years ??Optimal: ? <100 mg/dL ??Near optimal: ?100-129 mg/dL ??Borderline high: ?? 130-159 mg/dL ??High: ?>160 mg/dL Literature References: 1. Expert Panel on Integrated Guidelines for Cardiovascular Health and Risk Reduction in Children and Adolescents. Pediatrics 2011;128:S213 2. NCEP Expert Panel. Circulation 2004;110:227 Current Interpretive Data was last revised on 2017. Non-HDL Cholesterol 130 mg/dL [facility] Comment: Interpretive Data Ages < or = 19 years ??Acceptable: ?<120 mg/dL ??Borderline high: ??120-144 mg/dL ??High: ?>145 mg/dL Ages > or = 20 years ??When triglycerides are >200 mg/dL, Non-HDL cholesterol is a secondary target of ? therapy with treatment goals that are 30 mg/dL greater than the LDL cholesterol target. ? Literature References: 1. Expert Panel on Integrated Guidelines for Cardiovascular Health and Risk Reduction in Children and Adolescents. Pediatrics 2011;128:S213 2. NCEP Expert Panel. Circulation 2004;110:227 Current Interpretive Data was last revised on 2017. Chol/HDL ratio 3 [facility] Blood 07/23/2021 9:11 PM CDT 07/23/2021 9:53 PM CDT us Sophia Bahena MD LAB BLOOD ORDERABLES Final Result [facility] Department [place] [address] * Magnesium (07/23/2021 9:11 PM CDT) Pathologist [facility] Magnesium 1.9 1.4 - 2.5 mg/dL [facility] Blood 07/23/2021 9:11 PM CDT 07/23/2021 9:53 PM CDT Sophia Bahena MD LAB BLOOD ORDERABLES Final Result Performing Organization Address City/[facility]/ZIP Co de Phone Number [facility] Department [place] [address] * Lipase (07/23/2021 9:11 PM CDT) [facility] Lipase 67 10 - 99 Units/L [facility] Blood 07/23/2021 9:11 PM CDT 07/23/2021 9:53 PM CDT Sophia Bahena MD LAB BLOOD ORDERABLES Final Result Performing Organization Address [facility] de Phone Number [facility] Department [place] [address] * Comprehensive metabolic panel (07/23/2021 9:11 PM CDT) [facility] Sodium 138 135 - 145 mmol/L [facility] Potassium, pl 3.8 3.3 - 4.9 mmol/L [facility] Chloride 103 97 - 110 mmol/L [facility] CO2 25 22 - 32 mmol/L [facility] Anion gap 10 2 - 15 mmol/L [facility] BUN 12 8 - 25 mg/dL [facility] Creatinine 1.03 0.60 - 1.10 mg/dL [facility] Glucose 94 70 - 199 mg/dL [facility] Comment: Interpretive Data Fasting glucose >/= [...] classification and Diagnosis of Diabetes Diabetes Care 2017;40 (Suppl. 1):S11. Current interpretive data was last revised 2017. Calcium 9.0 8.5 - 10.3 mg/dL [facility] Bilirubin, total 0.5 0.1 - 1.2 mg/dL [facility] Protein, pl 6.9 6.5 - 8.5 g/dL [facility] Albumin 3.9 3.5 - 5.0 g/dL [facility] Alk phos 91 40 - 130 Units/L [facility] ALT 37 7 - 45 Units/L [facility] AST 23 10 - 45 Units/L [facility] Blood 07/23/2021 9:11 PM CDT 07/23/2021 9:53 PM CDT Sophia Bahena MD LAB BLOOD ORDERABLES Final Result [facility] Department [place] [address] * (ABNORMAL) CBC with auto differential (07/23/2021 9:11 PM CDT) WBC 15.4(H) 3.8 - 9.9 K/cumm [facility] Hgb 13.3 11.9 - 15.5 g/dL [facility] Hct 40.9 35.6 - 45.5 % [facility] Plt 307 150 - 400 K/cumm [facility] MPV 8.9(L) 9.1 - 12.3 fL [facility] RBC 4.66 3.90 - 5.20 M/cumm [facility] MCV 87.8 81.3 - 96.4 fL [facility] MCH 28.5 27.1 - 33.3 pg [facility] MCHC 32.5 32.3 - 35.7 g/dL [facility] RDW CV 14.5 11.1 - 14.9 % [facility] RDW SD 46.3 35.7 - 48.1 fL [facility] NRBC abs 0.00 0.00 - 0.01 K/cumm [facility] Blood 07/23/2021 9:11 PM CDT 07/23/2021 9:53 PM CDT Sophia Bahena MD LAB BLOOD ORDERABLES Final Result Performing Organization Address City/State/[facility] Co de Phone Number [facility] Department [place] [address] * ECG 12-LEAD (07/23/2021 6:57 PM CDT) Narrative [facility] - 07/23/2021 6:57 PM CDT Miller Schrader MD ? 07/23/2021 ??6:57 PM ECG 12 lead Date/Time: 07/23/2021 6:57 PM Performed by: Miller Schrader MD Authorized by: Salvador Thayer MD Rate: ??ECG rate: ??123 ??ECG rate assessment: tachycardic ?? Rhythm: ??Rhythm: sinus tachycardia ?? Ectopy: ??Ectopy: none ?? QRS: ??QRS axis: ??Normal ??QRS intervals: ??Normal Conduction: ??Conduction: normal ?? ST segments: ??ST segments: ??Non-specific T waves: ??T waves: non-specific ?? Previous ECG: ??Previous ECG: ??Compared to current ??Date of previous ECG: ??03/28/2015 Interpretation: ??Interpretation: No significant change ?? Recommended Follow-up: ??Recommended follow up: further workup in the ED ?? Procedure Note Miller Schrader MD - 07/23/2021 6:57 PM CDT Procedure ECG 12 lead Date/Time: 07/23/2021 6:57 PM Performed by: Miller Schrader MD Authorized by: Salvador Thayer MD Rate: ECG rate: 123 ECG rate assessment: tachycardic Rhythm: Rhythm: sinus tachycardia Ectopy: Ectopy: none QRS: QRS axis: Normal QRS intervals: Normal Conduction: Conduction: normal ST segments: ST segments: Non-specific T waves: T waves: non-specific Previous ECG: Previous ECG: Compared to current Date of previous EC03/28/2015 Interpretation: Interpretation: No significant change Recommended Follow-up: Recommended follow up: further workup in the ED Miller Schrader MD 07/23/21 0165 us Garrison Rhoades MD ECG ORDERABLES Final Result [facility] documented in this encounter Visit Diagnoses Diagnosis Aspiration pneumonia, unspecified aspiration pneumonia type, unspecified laterality, unspecified part of lung (HCC)- Primary documented in this encounter Administered Medications Inactive Administered Medications - up to 3 most recent administrations Medication Order MAR Action Action Date Dose Rate Site acetaminophen (TYLENOL) tablet 650 mg 650 mg, oral, Once, On 07/23/21 at 2032, For 1 dose Given 07/23/2021 9:37 PM CDT 650 mg HYDROmorphone (DILAUDID) injection 0.5 mg 0.5 mg, intravenous, Administer over 2 Minutes, Every 4 hours PRN, 2nd line for pain, Starting on 07/23/21 at 2049 Given 07/23/2021 9:46 PM CDT 0.5 mg HYDROmorphone (DILAUDID) injection 0.5 mg 0.5 mg, intravenous, Administer over 2 Minutes, Once, On 07/23/21 at 2221, For 1 dose Given 07/23/2021 10:51 PM CDT 0.5 mg ioversoL (OPTIRAY 350) syringe syringe 100 mL 100 mL, intravenous, Once in imaging, contrast, Starting on 07/23/21 at 2238, For 1 dose Contrast Given 07/23/2021 10:42 PM CDT 95 mL Lactated Ringer's (LR) bolus 1,000 mL 1,000 mL, intravenous, at 500 mL/hr, Administer over 2 Hours, Once, On 07/23/21 at 2016, For 1 dose New Bag 07/23/2021 9:37 PM CDT 1,000 mL 500 mL/hr ondansetron (ZOFRAN) injection 4 mg 4 mg, intravenous, Administer over 2 Minutes, Once, On 07/23/21 at 2015, For 1 dose Given 07/23/2021 9:37 PM CDT 4 mg documented in this encounter Active and Recently Administered Medications Times are shown in CDT. Scheduled Medication Order 07/22/2021 07/23/2021 07/24/2021 acetaminophen (TYLENOL) tablet 650 mg (COMPLETED) 650 mg, oral, Once, On 07/23/21 at 2032, For 1 dose 2136 (Given - Provider: Joana Bernal, ANTHONY) HYDROmorphone (DILAUDID) injection 0.5 mg (COMPLETED) 0.5 mg, intravenous, Administer over 2 Minutes, Once, On 07/23/21 at 2220, For 1 dose 2250 (Given - Provider: Aleena Lanza, ANTHONY) Lactated Ringer's (LR) bolus 1,000 mL (COMPLETED) 1,000 mL, intravenous, at 500 mL/hr, Administer over 2 Hours, Once, On 07/23/21 at 2015, For 1 dose 2136 (New Bag - Provider: Jose Luis Bernal RN)2337 (Stopped - Provider: Latisha Lanza, ANTHONY) ondansetron (ZOFRAN) injection 4 mg (COMPLETED) 4 mg, intravenous, Administer over 2 Minutes, Once, On 07/23/21 at 2016, For 1 dose 2136 (Given - Provider: Joana Bernal RN) PRN Medication Order 07/22/2021 07/23/2021 07/24/2021 HYDROmorphone (DILAUDID) injection 0.5 mg 0.5 mg, intravenous, Administer over 2 Minutes, Every 4 hours PRN, 2nd line for pain, Starting on 07/23/21 at 2049 2145 (Given - Provider: Aleena Lanza, ANTHONY) ioversoL (OPTIRAY 350) syringe syringe 100 mL (COMPLETED) 100 mL, intravenous, Once in imaging, contrast, Starting on 07/23/21 at 223, For 1 dose 2241 (Contrast Given - Provider: Sabina Adams, RT) documented in this encounter Care Teams Small Business Sales Representative Relationship Specialty Start Date End Date Bhupinder Tobias MD [address] [facility] [address] [place] [address] PCP - General Internal Medicine 06/03/20 Cash Heath III, MD [address] [facility] [address] [place] [address] Rheumatology 04/12/17 Jorge Aguiar MD [address] [facility] [address] [place] [address] Consulting Physician Urology 11/10/20 Khoa Arias MD [address] [address] Referring Physician Gastroenterology 03/20/21 documented as of this encounter
--- OUTSIDE RECORDS SUMMARY | 2024-04-29 19:23 | XMS_ITS | Encounter Summary ---
Author Organization [facility] Healthcare Address [address] [place] [address] Care Team Providers Care Retail Team Member Name Role Phone Kumar CARRILLO MD, Cash Howard Unavailable Bhupinder Tobias MD Primary Care Provider [phone] Jorge Aguiar MD Unavailable [phone] Khoa Arias MD Unavailable [phone] Encounter Details Date Type Department Care Team (Late st Contact Info) Description 08/30/2021 2:40 PM CDT Lab [facility] [address] [address] [place] [address] Social History Tobacco Use Types Packs/Day Years Used Date Smoking Tobacco: Former Cigarettes Q uit: 2013 Alcohol Use Standard Drinks/Week Comments No 0 [...] on file Legal Sex Female 9:24 PM 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 MIXER Gender Identity Female 08/14/2022 11:32 AM CDT Sexual Orientation Straight 02/13/2023 7: 01 AM CDT documented as of this encounter Plan of Treatment Not on file documented as of this encounter Procedures Procedure Name Priority Date/Time Associated Diagnosis Comments IMMUNOGLOBULIN IGG SUBCLASSES Routine 08/30/2021 3:00 PM CDT documented in this encounter Results * Immunoglobulin IgG subclasses (08/30/2021 3:00 PM CDT) IgG 879 767 - 1590 mg/dL [facility] IgG, fraction 1 344 341 - 894 mg/dL [facility] IgG, fraction 2 347 171 - 632 mg/dL [facility] IgG, fraction 3 52.9 18.4 - 106.0 mg/dL [facility] IgG, fraction 4 41.4 2.4 - 121.0 mg/dL [facility] Comment: Test Performed by: [facility] [address] [place] [address] Software Support Engineer: Curtis Aviles M.D. Ph.D.; CLIA# [id number] Blood 08/30/2021 3:00 PM CDT 08/30/2021 3:44 PM CDT Jack Adhikari CLASSER LAB BLOOD ORDERABLES Final Result Performing Organization Address City/State/[facility] Co de Phone Number [facility] [address] [facility] [place] [address] documented in this encounter Visit Diagnoses Not on filedocumented in this encounter Care Teams Retail Team Member Relationship Specialty Start Date End Date Bhupinder Tobias MD [address] [facility] [address] [place], [place] [id number] PCP - General Internal Medicine 06/03/20 Cash Heath III, MD [address] [facility] [address] [place] [address] Rheumatology 04/12/17 Jorge Aguiar MD [address] [facility] [address] [place] [address] Consulting Physician Urology 11/10/20 Khoa Arias MD [address] [facility] [address] [place] [address] Referring Physician Gastroenterology 03/20/21 documented as of this encounter
--- OUTSIDE RECORDS SUMMARY | 2024-04-29 19:23 | XMS_ITS | Encounter Summary ---
Author Organization [facility] Address [address] [place] [address] Phone Care Team Providers Care Dial Screw Assembler Name Role Phone Kumar CARRILLO MD, Cash Howard Unavailable [phone] Bhupinder Tobias MD Primary Care Provider [phone] Jorge Aguiar MD Unavailable [phone] Khoa Arias MD Unavailable [phone] Encounter Details Date Type Department Care Team (Late st Contact Info) Description 03/31/2021 Telephone [facility] [address] [place] [address] Miriam Frye PA [address] [place] [address] Social History Tobacco Use Types Packs/Day Years Used Date Smoking Tobacco: Never Alcohol Use Standard Drinks/Week Comments No 0 (1 standard drink = 0.6 oz pur e alcohol) Comments No Sex and Gender Information Value Date Recorded Sex Assigned at Not on file Legal Sex Female 9:24 PM CORDUROY BRUSHER OPERATOR Gender Identity Female 08/14/2022 11:32 AM CDT Sexual Orientation Straight 02/13/2023 7: 01 AM CDT documented as of this encounter Miscellaneous Notes * Telephone Encounter - Maisha Avila RN - 04/04/2021 4:47 PM CORDUROY BRUSHER OPERATOR Scheduled UROY BRUSHER OPERATOR * Telephone Encounter - Miriam Frye PA - 03/31/2021 9:18 AM CST Please try to schedule her orencia iv soon, she is pretty flared up. ty UROY BRUSHER OPERATOR documented in this encounter Plan of Treatment Not on file documented as of this encounter Visit Diagnoses Not on filedocumented in this encounter Care Teams Dial Screw Assembler Relationship Specialty Start Date End Date Bhupinder Tobias MD [address] [place] [address] PCP - General Internal Medicine 06/03/20 Cash Heath III, MD [address] [address] Rheumatology 04/12/17 Jorge Aguiar MD [address] [place] [address] Consulting Physician Urology 11/10/20 Khoa Arias MD [address] [place] [address] Referring Physician Gastroenterology 03/20/21 documented as of this encounter
--- OUTSIDE RECORDS SUMMARY | 2024-04-29 19:23 | XMS_ITS | Encounter Summary ---
Author Organization [facility] Address [address] [place] [address] Phone Care Team Providers Care Marketing Business Analyst Name Role Phone Kumar CARRILLO MD, Cash Howard Unavailable [phone] Bhupinder Tobias MD Primary Care Provider [phone] Jorge Aguiar MD Unavailable [phone] Khoa Arias MD Unavailable [phone] Encounter Details Date Type Department Care Team (Late st Contact Info) Description 05/23/2021 Telephone [facility] [address] [place] [address] Maisha Avila, RN Social History Tobacco Use Types Packs/Day Years Used Date Smoking Tobacco: Never Alcohol Use Standard Drinks/Week Comments No 0 (1 standard drink = 0.6 oz pur e alcohol) Comments No Sex and Gender Information Value Date Recorded Sex Assigned at Not on file Legal Sex Female 9:24 PM PARTY HOST Gender Identity Female 08/14/2022 11:32 AM CDT Sexual Orientation Straight 02/13/2023 7: 01 AM CDT documented as of this encounter Miscellaneous Notes * Telephone Encounter - Maisha Avila RN - 05/23/2021 3:06 PM PARTY HOST Called pt to reschedule Orencia infusion #2 due to weather. Pt states is having lot of abdominal discomfort and may go to ER. Told pt she should keep appt with BB on 06/02 and would reschedule appt after seen. Pt agreeable Y HOST documented in this encounter Plan of Treatment Not on file documented as of this encounter Visit Diagnoses Not on filedocumented in this encounter Care Teams Marketing Business Analyst Relationship Specialty Start Date End Date Bhupinder oTbias MD [address] [facility] [address] [place] [address] PCP - General Internal Medicine 06/03/20 Cash Heath III, MD [address] [facility] [address] [place] [address] Rheumatology 04/12/17 Jorge Aguiar MD [address] [address] Consulting Physician Urology 11/10/20 Khoa Arias MD [address] [address] Referring Physician Gastroenterology 03/20/21 documented as of this encounter
--- OUTSIDE RECORDS SUMMARY | 2024-04-29 19:23 | XMS_ITS | Encounter Summary ---
Author Organization [facility] Address [address] [place] [address] Phone Care Team Providers Care Clinical Resource Coordinator Name Role Phone Isaiah Quiros MD Unavailable Kumar CARRILLO MD, Cash Howard Unavailable [phone] Alex Mahajan MD Unavailable [phone] Bhupinder Tobias MD Unavailable [phone] Bhupinder Tobias MD Primary Care Provider [phone] Jorge Aguiar MD Unavailable Reason for Visit * Reason Onset Date Comments Patient called wanting to see if she could start her meds ag 03/15/2021 Encounter Details Date Type Department Care Team (Late st Contact Info) Description 03/15/2021 Telephone [facility] [address] [place] [address] Ghazala [place] Patient called wanting to see if she could start her meds ag Social History Tobacco Use Types Packs/Day Years Used Date Smoking Tobacco: Never Alcohol Use Standard Drinks/Week Comments No 0 (1 standard drink = 0.6 oz pur e alcohol) Comments No Sex and Gender Information Value Date Recorded Sex Assigned at Not on file Legal Sex Female 9:[address] LANDSCAPE ARCHITECT Gender Identity Female 08/14/2022 11:32 AM CDT Sexual Orientation Straight 02/13/2023 7: 01 AM CDT documented as of this encounter Miscellaneous Notes * Telephone Encounter - Kraig Garcia - 03/15/2021 2:19 PM CST Noted and lab orders mailed to pt. WAY LANDSCAPE ARCHITECT * Telephone Encounter - Miriam Frye PA - 03/15/2021 2:02 PM CST Spoke to pt and advised her to get today's ordered labs so we can make sure her lipase and lft's are wnl before we restart imuran and orencia. Informed that if lipase still elevated will delay starting imuran but can start orencia. Pt has an appt with gi next month. WAY LANDSCAPE ARCHITECT * Telephone Encounter - Kraig Garcia - 03/15/2021 1:27 PM CST Spoke to pt, says her abd pain much better, says was on on R side and had kidney stone removed. Pt say she has a MRI result she wants to discuss w/you. WAY LANDSCAPE ARCHITECT * Telephone Encounter - Miriam Frye PA - 03/15/2021 12:56 PM CST We need to recheck her labs first. Is her abd pain resolved? WAY LANDSCAPE ARCHITECT * Telephone Encounter - Ghazala [place] - 03/15/2021 10:47 AM CST Patient called wanting to see if she could start her meds again. States she is hurting and swollen. WAY LANDSCAPE ARCHITECT documented in this encounter Plan of Treatment Not on file documented as of this encounter Visit Diagnoses Not on filedocumented in this encounter Care Teams Clinical Resource Coordinator Relationship Specialty Start Date End Date Bhupinder Tobias MD [address] [facility] [address] [place] [address] PCP - General Internal Medicine 06/03/20 Isaiah Quiros MD [address] [facility] 1 [place] [address] Internal Medicine 02/18/17 03/19/21 Cash Heath III, MD [address] [facility] [address] [place] [address] Rheumatology 04/12/17 Alex Mahajan MD [address] [facility] [address] [place] [address] Referring Physician Internal Medicine 05/07/19 1 Bhupinder Tobias MD [address] [facility] [address] [facility] [address] [place] [address] Referring Physician Internal Medicine 06/03/20 1 Jorge Aguiar MD [address] [facility] [address] [place] [address] Consulting Physician Urology 11/10/20 documented as of this encounter
--- OUTSIDE RECORDS SUMMARY | 2024-04-29 19:23 | XMS_ITS | Encounter Summary ---
Author Organization [facility] logy Address [address] [place] [address] Phone Care Team Providers Care Flight Communications Operator Name Role Phone Kumar CARRILLO MD, Cash Howard Unavailable [phone] Bhupinder Tobias MD Primary Care Provider [phone] Jorge Aguiar MD Unavailable [phone] Khoa Arias MD Unavailable [phone] Reason for Visit * Reason Onset Date Comments Abdominal Pain 06/29/2021 Encounter Details Date Type Department Care Team (Late st Contact Info) Description 06/29/[address] [address] Tiara Rainey Abdominal Pain Social History Tobacco Use Types Packs/Day Years Used Date Smoking Tobacco: Never Alcohol Use Standard Drinks/Week Comments No 0 (1 standard drink = 0.6 oz pur e alcohol) Comments No Sex and Gender Information Value Date Recorded Sex Assigned at Not on file Legal Sex Female 9:24 PM TERMITE EXTERMINATOR HELPER Gender Identity Female 08/14/2022 11:32 AM CDT Sexual Orientation Straight 02/13/2023 7: 01 AM CDT documented as of this encounter Miscellaneous Notes * Result Encounter Note - Miriam Frye PA - 06/29/2021 3:03 PM CST Lipase 135 and pt having more abd pain, she was already advised to go to ER. ITE EXTERMINATOR HELPER * Telephone Encounter - Miriam Frye PA - 06/29/2021 2:58 PM CST Labs reviewed and agreed to ER f/u. Discussed with her at last visit that maybe she should go to [facility] er since she was not happy with ER by her house. ITE EXTERMINATOR HELPER * Telephone Encounter - Tiara Rainey - 06/29/2021 2:18 PM CST Pt is having increasing abd pain. Reviewed partial labs in [facility] (hard copy on your desk) & Lipase is elevated (135). Pt advised to go to ER for eval. Pt agrees w/plan. ITE EXTERMINATOR HELPER documented in this encounter Plan of Treatment Not on file documented as of this encounter Procedures Procedure Name Priority Date/Time Associated Diagnosis Comments SCAN - LABS 06/29/2021 2:42 PM TERMITE EXTERMINATOR HELPER documented in this encounter Results * SCAN - LABS (06/29/2021 2:42 PM TERMITE EXTERMINATOR HELPER) Miriam Weiner inal Result documented in this encounter Visit Diagnoses Not on filedocumented in this encounter Care Teams Flight Communications Operator Relationship Specialty Start Date End Date Bhupinder Tobias MD [address] [place] [address] PCP - General Internal Medicine 06/03/20 Cash Heath III, MD [address] [place] [address] Rheumatology 04/12/17 Jorge Aguiar MD [address] [facility] [address] [place] [address] Consulting Physician Urology 11/10/20 Khoa Arias MD [address] [facility] [address] [place] [address] Referring Physician Gastroenterology 03/20/21 documented as of this encounter
--- OUTSIDE RECORDS SUMMARY | 2024-04-29 19:23 | XMS_ITS | Encounter Summary ---
Author Organization [facility] Healthcare Address [address] [place] [address] Care Team Providers Care Denture Laboratory Technician Name Role Phone Kumar CARRILLO MD, Cash Howard Unavailable Bhupinder Tobias MD Primary Care Provider [phone] Jorge Aguiar MD Unavailable [phone] Khoa Arias MD Unavailable [phone] Reason for Referral * Consultation (Routine) - Closed Specialty Diagnoses / Procedures Referred By Kaylynn phillips Referred To Contact Gastroenterology Diagnoses Abdominal pain, epigastric Chronic pancreatitis, unspecified pancreatitis type (HCC) Gennaro Martinez NP [address] [facility] [address] [place] [address] Phone: tel: fax: External Order Referral ID Status Reason Start Date Expiration Date V isits Requested Visits Authorized [id number] Closed Specialty Services Required 06/30/2021 07/30/2022 1 1 Question Answer Please select the performing region: External Order [171] # of visits: 1 STERED NURSE MATERNAL CHILD Reason for Visit * Reason Comments Abdominal Pain Encounter Details Date Type Department Care Team (Late st Contact Info) Description 06/30/2021 5:19 PM REGISTERED NURSE MATERNAL CHILD - 06/30/2021 8:20 PM REGISTERED NURSE MATERNAL CHILD Emergency [facility] Emergency Department [address] [place] [address] Abdominal pain, epigastric (Primary Dx); Chronic pancreatitis, unspecified pancreatitis type (HCC); Renal calculi Discharge Disposition: Discharge to home or self care Social History Tobacco Use Types Packs/Day Years Used Date Smoking Tobacco: Never Alcohol Use Standard Drinks/Week Comments No 0 (1 standard drink = 0.6 oz pur e alcohol) Comments No Sex and Gender Information Value Date Recorded Sex Assigned at Not on file Legal Sex Female 9:24 PM REGISTERED NURSE MATERNAL CHILD Gender Identity Female 08/14/2022 11:32 AM CDT Sexual Orientation Straight 02/13/2023 7: 01 AM CDT documented as of this encounter Last Filed Vital Signs Vital Sign Reading Time Taken Comments Blood Pressure 141/77 06/30/2021 8:00 PM REGISTERED NURSE MATERNAL CHILD Pulse 88 06/30/2021 8:00 PM REGISTERED NURSE MATERNAL CHILD Temperature 36.3 ??C (97.4 ??F) 06/30/2021 1:36 PM CS T Respiratory Rate 17 06/30/2021 1:36 PM REGISTERED NURSE MATERNAL CHILD Oxygen Saturation 95% 06/30/2021 8:00 PM REGISTERED NURSE MATERNAL CHILD Inhaled Oxygen Concentration - - Weight 85.7 kg (189 lb) 06/30/2021 1:36 PM REGISTERED NURSE MATERNAL CHILD Height 167.6 cm (5' 6 ) 06/30/2021 1:36 PM REGISTERED NURSE MATERNAL CHILD Body Mass Index 30.51 06/30/2021 1:36 PM REGISTERED NURSE MATERNAL CHILD documented in this encounter Discharge Diagnoses Diagnosis Other chronic pancreatitis (HCC) - OTHER CHRONIC PANCREATITIS Calculus of kidney - CALCULUS OF KIDNEY Personal history of urinary calculi - PERSONAL HISTORY OF URINARY 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 Take tamsulosin daily to help with passage of her kidney stones, until your kidney stones have passed or the pain has resolved. [facility] Gastroenterology should be contacting you within the next 1-2 business days to schedule a follow-up appointment regarding her chronic pancreatitis. If they do not contact you, you can contact them with the number listed above. Follow up with your primary care provider, or the clinic listed above, in 1 week if your symptoms have not resolved. Return to the Emergency Department if you experience any acute worsening of your current symptoms. STERED NURSE MATERNAL CHILD STERED NURSE MATERNAL CHILD STERED NURSE MATERNAL CHILD * Attachments The following attachments cannot be sent through Care Everywhere. * Pancreatitis (AfterCare(R) Instructions(ER/ED)) (Azeri) * Kidney Stones (AfterCare(R) Instructions(ER/ED)) (Azeri) documented in this encounter Medications at Time [...] alendronate (FOSAMAX) 70 mg tablet 1 09/02/2018 09/28/20 23 AMITIZA 24 mcg capsule TK ONE [...] 0 05/17/2016 08/31/19 22 ondansetron ODT (ZOFRAN-ODT) 8 mg disintegrating tablet DISSOLVE 1 TABLET(8 MG) ON THE TONGUE EVERY 8 HOURS NEEDED FOR NAUSEA OR VOMITING 60 tablet 05/12/2021 11/01/19 22 oxyCODONE-acetamino phen (PERCOCET) 5-325 mg per [...] Refills Last Filled Start Date End Date HYDROcodone-acetam inophen (NORCO) 5-325 mg per tabletIndications: Pain Take 1 tablet by mouth every 4 (four) hours as needed for pain Do not exceed 8 tablets/day. 10 tablet 06/30/2021 tamsulosin (FLOMAX) 0.4 mg extended release capsuleIndications :Urolithiasis Take 1 capsule (0.4 mg total) by mouth daily 30 capsule 06/30/2021 documented in this encounter Discharge Disposition Disposition Code Departure Means Destination Discharge to home or self care documented in this encounter ED Notes * Gennaro Martinez COLORING ROOM WORKER - 06/30/2021 5:38 PM CST HPI Chief Complaint Patient presents with ??? Abdominal Pain 46-year-old female patient with history of diverticulitis, Meredith-Danlos disease, hemorrhoids, IBS,renal calculi, migraines, RA, previously diagnosed pancreatitis, presents self emergency departmentcomplaining of acute left upper quadrant/epigastric abdominal pain for the past several weeks. Patient states she has had this pain for several weeks now, has been seen in outside hospital and diagnosed pancreatitis, they have provided minimal treatment for her, she states her pain is been increasing in intensity for the past several weeks to the point where she is now having difficulty tolerating it. She states her stool is discolored bright yellow, and the abdominal pain and a extends from epi gastric area laterally left along the costal margin to the left flank. She also complains of intermittent but persistent nausea/vomiting/diarrhea, but she states she also has a history of IBS and diverticulitis. She denies any other secondary somatic complaints, denies any fevers/chills/sweats, denies any chest pain or shortness of breath. Upon exam, the patient is in moderate distress from acuteabdominal pain. Patient History: Patient Active Problem List [...] ??? 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 Psoriatic arthritis (CMS/HCC) (HCC) 01/31/2017 ??? Migraine 06/29/2015 ??? Diverticulosis [...] for chills and fever. HENT: Negative for ear pain and sore throat. Eyes: Negative for pain and visual disturbance. Respiratory: Negative for cough and shortness of breath. Cardiovascular: Negative for chest pain and palpitations. Gastrointestinal: Positive for abdominal pain, diarrhea, nausea and vomiting. Negative for abdominal distention, anal bleeding and blood in stool. Genitourinary: Negative for decreased urine volume, dysuria, flank pain, frequency, hematuria, pelvic pain, urgency and vaginal discharge. Musculoskeletal: Negative for arthralgias, back pain and myalgias. Skin: Negative for color change, rash and wound. Neurological: Negative for dizziness, seizures, syncope, weakness, light- headedness and headaches. Psychiatric/Behavioral: Negative for agitation and suicidal ideas. All other systems reviewed and are negative. Physical Exam ED Triage Vitals [06/30/21 1336] Temp Pulse Resp BP SpO2 36.3 ??C (97.4 ??F) 97 17 135/100 98 % Temp src Heart Rate Source Patient Position BP Location FiO2 (%) Transdermal -- -- -- -- Physical Exam Vitals and nursing note reviewed. Constitutional: General: She is not in acute distress. Appearance: She is well-developed. HENT: Head: Normocephalic and atraumatic. Eyes: Conjunctiva/sclera: Conjunctivae normal. Cardiovascular: Rate and Rhythm: Normal rate and regular rhythm. Heart sounds: Normal heart sounds. No murmur heard. Pulmonary: Effort: Pulmonary effort is normal. No respiratory distress. Breath sounds: Normal breath sounds. No stridor. No wheezing, rhonchi or rales. Chest: Chest wall: No tenderness. Abdominal: General: Abdomen is protuberant. Bowel sounds are increased. There is no distension. There are no signs of injury. Palpations: Abdomen is soft. There is no shifting dullness, fluid wave, hepatomegaly, splenomegaly,mass or pulsatile mass. Tenderness: There is abdominal tenderness in the epigastric area and left upper quadrant. There is guarding. There is no right CVA tenderness, left CVA tenderness or rebound. Musculoskeletal: Cervical back: Neck supple. Skin: General: Skin is warm and dry. Neurological: Mental Status: She is alert and oriented to person, place, and time. GCS: GCS eye subscore is 4. GCS verbal subscore is 5. GCS motor subscore is 6. Sensory: Sensation is intact. Motor: Motor function is intact. Coordination: Coordination is intact. MDM Medical Decision Making Differential Diagnosis or Management Options: 46-year-old female patient presents self emergency department complaining of epigastric/left upper quadrant abdominal pain for the past several weeks, previously diagnosed with pancreatitis. DDx- acute pancreatitis, diverticulitis, IBS, gastritis, gastroenteritis, less likely SBP, bowel perforation Plan- CBC, CMP, lipase, UA, CT abdomen pelvis, Zofran for nausea, morphine for abdominal pain, IV fluids for possible dehydration due to decreased p.o. intake and persistent nausea, vomiting and diarrhea. Dispo based on further workup but likely inpatient admission for pain control, rehydration. ED Course as of 07/11/21 09 Time: 06/30 1816 Value: Lipase, Serum(!): 174 Comment: (Reviewed) By: Gennaro Martinez NP Time: 06/30 1845 Comment: CT AP- IMPRESSION: ?? 1. No imaging findings of active pancreatitis or complications from prior pancreatitis. . 2. Scattered sub-5 mm nonobstructing renal stones in the bilateral kidneys. By: Gennaro Martinez NP Time: 06/30 1920 Comment: Reassessed patient, advised her of the CT indicating no acute pancreatitis visible on CT though her lipase is elevated indicates she might have chronic low-level pancreatitis. Most likely cause of her abdominal pain was identified to be multiple bilateral kidney stones. Patient acknowledged she has a history of kidney stones and agreed this might be the cause of her pain. Will administerToradol/IV fluids/tamsulosin for treatment of kidney stones. Likely discharge to home with pain management medications, tamsulosin prescription, referral to Gastroenterology for treatment of chronic pancreatitis. By: Gennaro Martinez NP Time: 06/30 2008 Comment: Due to the following reason, I printed a controlled substance for this patient: Medication will not be dispensed in [place]. By: Librado Peterson MD Time: 06/30 2010 Comment: IV fluids a complete, patient experienced some relief of pain after administration of Toradol. She is ready for discharge at this time. By: Gennaro Martinez NP Final diagnoses: Abdominal pain, epigastric Chronic pancreatitis, unspecified pancreatitis type (HCC) Renal calculi Gennaro Martinez NP 06/30/21 1752 Gennaro Martinez, BRITT 07/11/21 0901 STERED NURSE MATERNAL CHILD * Scott Loya RN - 06/30/2021 5:19 PM CST Bed: [id number] Expected date: Expected time: Means of arrival: Car Comments: Scott Loya RN 06/30/21 1719 STERED NURSE MATERNAL CHILD * Joshua Gibbs RN - 06/30/2021 1:38 PM CST Patient presents to the ED with complaint of left ribcage/LUQ pain. Patient states she had this similar presentation 05/26/21 at [place] and had an elevated lipase to 500's and was diagnosed with pancreatitis and discharged. Patient states since then she has been limping along . Patient states her pain was intermittent and has now become constant, worsening after eating. Patient states her stool is school bus yellow in color. Patient also with N/V. Patient is a/ox4, calm and cooperative. STERED NURSE MATERNAL CHILD documented in this encounter Plan of Treatment Scheduled Referrals Name Type Priority Associated Diagnoses Order Schedule Ambulatory referral to Gastroenterology Outpatient Referral Routine Abdominal pain, epigastric Chronic pancreatitis, unspecified pancreatitis type (HCC) Ordered: 06/30/2021 documented as of this encounter Procedures Procedure Name Priority Date/Time Associated Diagnosis Comments POCT HCG, URINE Routine 06/30/2021 7:02 PM REGISTERED NURSE MATERNAL CHILD CT ABDOMEN PELVIS W CONTRAST ED 06/30/2021 6:29 PM REGISTERED NURSE MATERNAL CHILD URINALYSIS AND REFLEX TO MICROSCOPIC STAT 06/30/2021 6:18 PM REGISTERED NURSE MATERNAL CHILD EGFR STAT 06/30/2021 5:37 PM REGISTERED NURSE MATERNAL CHILD DIFFERENTIAL AUTO STAT 06/30/2021 5:3 7 PM REGISTERED NURSE MATERNAL CHILD CBC WITH AUTO DIFFERENTIAL STAT 06/30/2021 5:37 PM REGISTERED NURSE MATERNAL CHILD LIPASE STAT 06/30/2021 5:37 PM REGISTERED NURSE MATERNAL CHILD COMPREHENSIVE METABOLIC PANEL STAT 06/30/2021 5:37 PM REGISTERED NURSE MATERNAL CHILD documented in this encounter Results * POCT hCG, urine (06/30/2021 7:02 PM REGISTERED NURSE MATERNAL CHILD) HCG, ur, POC Negative Lot Number [id number] QC Backgroud Clear Acceptable QC Control Line Acceptable Urine 06/30/2021 7:02 PM REGISTERED NURSE MATERNAL CHILD us Gen Al MD POINT OF CARE TEST OR DERABLES Final Result * CT Abdomen Pelvis W Contrast (06/30/2021 6:29 PM REGISTERED NURSE MATERNAL CHILD) Anatomical Region Laterality Modality Body N/A Computed Tomogra phy 06/30/2021 6:43 PM REGISTERED NURSE MATERNAL CHILD Impressions 06/30/2021 7:16 PM REGISTERED NURSE MATERNAL CHILD 1. No imaging findings of active pancreatitis or complications from prior pancreatitis. 2. Scattered sub-5 mm nonobstructing renal stones in the bilateral kidneys. Dictated by: Cyndy Hsieh M.D. The radiology attending physician has personally reviewed this study, and had reviewed and/or edited this written report and agrees with it. Electronically signed by: Bella Mckeon M.D. Narrative 06/30/2021 7:16 PM REGISTERED NURSE MATERNAL CHILD EXAMINATION: ??Computed tomography of the abdomen and pelvis with intravenous contrast HISTORY: Left upper quadrant pain. Recently diagnosed at outside hospital on 05/26/2021 for pancreatitis. TECHNIQUE: ??Transaxial computed tomographic images of the abdomen and pelvis ??were obtained abdomen pelvis intravenous contrast according to the standard protocol after the uneventful administration of 95 mL Opti-Ray 350 intravenous contrast. COMPARISON: 10/02/2015 FINDINGS: ?? Lung bases are clear. Heart is normal size without pericardial effusion. Aorta is normal caliber contour. The celiac trunk, superior mesenteric artery and inferior mesenteric artery are normal. The gastroduodenal artery is normal. There is a 1 cm enhancing lesion in the right hemiliver on series 2 image 69, which appears to be larger than the prior study from 03/28/2015. Finding favors flash filling hemangioma. No new suspicious lesions in the liver. Gallbladder is normal. There is no intrahepatic or extra hepatic biliary ductal dilation. The portal vein, splenic vein, and superior mesenteric vein are patent. Old granulomatous disease is noted in the spleen. The pancreas is normal. There is no pancreatic ductal dilation. Bilateral adrenal glands are normal. There are scattered tiny nonobstructing renal stones in the bilateral kidneys. The kidneys enhance symmetrically without hydronephrosis. There are multiple scattered hypoattenuating lesions in the bilateral kidneys, many of which are too small to characterize with the exception of the 8mm hypoattenuating lesion in the left kidney consistent with a simple cyst. The bladder is normal. The uterus is normal. There is diverticulosis without diverticulitis. The bowel loops are normal caliber without wall thickening. No appendicitis. There is no free fluid or free air in the abdomen or pelvis. No lymphadenopathy in the abdomen or pelvis. No suspicious osseous lesions. Procedure Note Bella Mckeon MD - 06/30/2021 EXAMINATION: Computed tomography of the abdomen and pelvis with intravenous contrast HISTORY: Left upper quadrant pain. Recently diagnosed at outside hospital on 05/26/2021 for pancreatitis. TECHNIQUE: Transaxial computed tomographic images of the abdomen and pelvis were obtained abdomen pelvis intravenous contrast according to the standard protocol after the uneventful administration of 95 mL Opti-Ray 350 intravenous contrast. COMPARISON: 10/02/2015 FINDINGS: Lung bases are clear. Heart is normal size without pericardial effusion. Aorta is normal caliber contour. The celiac trunk, superior mesenteric artery and inferior mesenteric artery are normal. The gastroduodenal artery is normal. There is a 1 cm enhancing lesion in the right hemiliver on series 2 image 69, which appears to be larger than the prior study from 03/28/2015. Finding favors flash filling hemangioma. No new suspicious lesions in the liver. Gallbladder is normal. There is no intrahepatic or extra hepatic biliary ductal dilation. The portal vein, splenic vein, and superior mesenteric vein are patent. Old granulomatous disease is noted in the spleen. The pancreas is normal. There is no pancreatic ductal dilation. Bilateral adrenal glands are normal. There are scattered tiny nonobstructing renal stones in the bilateral kidneys. The kidneys enhance symmetrically without hydronephrosis. There are multiple scattered hypoattenuating lesions in the bilateral kidneys, many of which are too small to characterize with the exception of the 8mm hypoattenuating lesion in the left kidney consistent with a simple cyst. The bladder is normal. The uterus is normal. There is diverticulosis without diverticulitis. The bowel loops are normal caliber without wall thickening. No appendicitis. There is no free fluid or free air in the abdomen or pelvis. No lymphadenopathy in the abdomen or pelvis. No suspicious osseous lesions. IMPRESSION: 1. No imaging findings of active pancreatitis or complications from prior pancreatitis. 2. Scattered sub-5 mm nonobstructing renal stones in the bilateral kidneys. Dictated by: Cyndy Hsieh M.D. The radiology attending physician has personally reviewed this study, and had reviewed and/or edited this written report and agrees with it. Electronically signed by: Bella Mckeon M.D. Gennaro Martinez COLORING ROOM WORKER IMG CT PROCEDURES Final Resul t * Urinalysis reflex to microscopic (06/30/2021 6:18 PM REGISTERED NURSE MATERNAL CHILD) Color, ur Yellow Yellow [facility] Clarity, ur Clear Clear [facility] Specific gravity, ur 1.022 1.003 - 1.030 [facility] pH, urine 6.0 [facility] Protein, ur ql Trace Negative [facility] Glucose, ur ql Negative Negative [facility] Ketones, ur Negative Negative [facility] Bilirubin, ur Negative Negative [facility] Blood, ur Negative Negative [facility] Urobilinogen, ur <2.0 <2.0 mg/dL [facility] Nitrite, ur Negative Negative [facility] Leukocyte esterase, ur Negative Negative [facility] UA reflex comment Reflex conditions for microscopic UA not met. [facility] Urine 06/30/2021 6:18 PM REGISTERED NURSE MATERNAL CHILD 06/30/2021 6:23 PM REGISTERED NURSE MATERNAL CHILD Narrative [facility] - 06/30/2021 6:38 PM REGISTERED NURSE MATERNAL CHILD ?? Urine pH is affected by diet, medications, systemic acid-base disturbances, and renal tubular function. ??pH may affect urinary stone formation. ??For example, urine pH below 6.0 may help reduce the tendency for calcium phosphate stones and pH greater than 6.0 may reduce the tendency for uric acid stone formation. Source: [employer]. Last revised 05-02-2017 us Gen Al MD LAB URINE ORDERABLES Final Result [facility] Department [place] [address] * (ABNORMAL) eGFR (06/30/2021 5:37 PM REGISTERED NURSE MATERNAL CHILD) eGFR 68(L) 90 - 130 mL/min/1. 73 m2 [facility] Comment: Interpretive Data Reference Interval [...] interpretive data was last reviewed 2021. Blood 06/30/2021 5:37 PM REGISTERED NURSE MATERNAL CHILD 06/30/2021 5:51 PM REGISTERED NURSE MATERNAL CHILD us Gen Al MD LAB BLOOD ORDERABLES Final Result [facility] Department [place] [address] * Differential, auto (06/30/2021 5:37 PM REGISTERED NURSE MATERNAL CHILD) Neutrophil abs 5.5 1.7 - 6.5 K/cumm [facility] Imm gran abs 0.1 0.0 - 0.1 K/cumm [facility] Lymphocyte abs 1.7 0.8 - 3.3 K/cumm [facility] Monocyte abs 0.5 0.2 - 0.8 K/cumm [facility] Eosinophil abs 0.1 0.0 - 0.5 K/cumm [facility] Basophil abs 0.1 0.0 - 0.1 K/cumm [facility] Neutrophil pct 70.1 % [facility] Comment: Interpretive Data Percent cell count reference ranges are not reported, since discordance with absolute values may lead to misinterpretation of CBC data. Current Interpretive Data was last revised on 2017. Imm gran pct 0.8 % [facility] Comment: Interpretive Data Percent cell count reference ranges are not reported, since discordance with absolute values may lead to misinterpretation of CBC data. Current Interpretive Data was last revised on 2017. Lymphocyte pct 21.2 % [facility] Comment: Interpretive Data Percent cell count reference ranges are not reported, since discordance with absolute values may lead to misinterpretation of CBC data. Current Interpretive Data was last revised on 2017. Monocyte pct 5.7 % [facility] Comment: Interpretive Data Percent cell count reference ranges are not reported, since discordance with absolute values may lead to misinterpretation of CBC data. Current Interpretive Data was last revised on 2017. Eosinophil pct 1.1 % [facility] Comment: Interpretive Data Percent cell count reference ranges are not reported, since discordance with absolute values may lead to misinterpretation of CBC data. Current Interpretive Data was last revised on 2017. Basophil pct 1.1 % [facility] Comment: Interpretive Data Percent cell count reference ranges are not reported, since discordance with absolute values may lead to misinterpretation of CBC data. Current Interpretive Data was last revised on 2017. Blood 06/30/2021 5:37 PM REGISTERED NURSE MATERNAL CHILD 06/30/2021 5:53 PM REGISTERED NURSE MATERNAL CHILD Gen Al MD LAB BLOOD ORDERABLES Final Result Performing Organization Address City/[facility]/ZIP Co de Phone Number [facility] Department [place] [address] * (ABNORMAL) Lipase (06/30/2021 5:37 PM REGISTERED NURSE MATERNAL CHILD) Pathologist [facility] Lipase 174(H) 10 - 99 Units/L [facility] Blood (Blood, Venous) 06/30/2021 5:37 PM REGISTERED NURSE MATERNAL CHILD 06/30/2021 5:51 PM REGISTERED NURSE MATERNAL CHILD Gen Al MD LAB BLOOD ORDERABLES Final Result Performing Organization Address [facility] de Phone Number [facility] Department [place] [address] * Comprehensive metabolic panel (06/30/2021 5:37 PM REGISTERED NURSE MATERNAL CHILD) Pathologist [facility] Sodium 142 135 - 145 mmol/L [facility] Potassium, pl 4.0 3.3 - 4.9 mmol/L [facility] Chloride 104 97 - 110 mmol/L [facility] CO2 27 22 - 32 mmol/L [facility] Anion gap 11 2 - 15 mmol/L [facility] BUN 12 8 - 25 mg/dL [facility] Creatinine 1.02 0.60 - 1.10 mg/dL [facility] Glucose 94 70 - 199 mg/dL [facility] Comment: Interpretive Data Fasting glucose >/= [...] interpretive data was last revised 2017. Calcium 9.6 8.5 - 10.3 mg/dL [facility] Bilirubin, total 0.2 0.1 - 1.2 mg/dL [facility] Protein, pl 8.3 6.5 - 8.5 g/dL [facility] Albumin 4.8 3.5 - 5.0 g/dL [facility] Alk phos 101 40 - 130 Units/L [facility] ALT 33 7 - 45 Units/L [facility] AST 25 10 - 45 Units/L [facility] Blood 06/30/2021 5:37 PM REGISTERED NURSE MATERNAL CHILD 06/30/2021 5:51 PM REGISTERED NURSE MATERNAL CHILD us Gen Al MD LAB BLOOD ORDERABLES Final Result [facility] Department [place] [address] * (ABNORMAL) CBC with auto differential (06/30/2021 5:37 PM REGISTERED NURSE MATERNAL CHILD) WBC 7.9 3.8 - 9.9 K/cumm [facility] Hgb 15.2 11.9 - 15.5 g/dL [facility] Hct 47.2(H) 35.6 - 45.5 % [facility] Plt 329 150 - 400 K/cumm [facility] MPV 9.4 9.1 - 12.3 fL [facility] RBC 5.41(H) 3.90 - 5.20 M/cumm [facility] MCV 87.2 81.3 - 96.4 fL [facility] MCH 28.1 27.1 - 33.3 pg [facility] MCHC 32.2(L) 32.3 - 35.7 g/dL [facility] RDW CV 14.2 11.1 - 14.9 % [facility] RDW SD 45.3 35.7 - 48.1 fL [facility] NRBC abs 0.00 0.00 - 0.01 K/cumm [facility] Blood (Blood, Venous) 06/30/2021 5:37 PM REGISTERED NURSE MATERNAL CHILD 06/30/2021 5:53 PM REGISTERED NURSE MATERNAL CHILD us Gen Al MD LAB BLOOD ORDERABLES Final Result [facility] Department [place] [address] documented in this encounter Visit Diagnoses Diagnosis Abdominal pain, epigastric- Primary Chronic pancreatitis, unspecified pancreatitis type (HCC) Renal calculi Calculus of kidney documented in this encounter Administered Medications Inactive Administered Medications - up to 3 most recent administrations Medication Order MAR Action Action Date Dose Rate Site ioversoL (OPTIRAY 350) syringe syringe 100 mL 100 mL, intravenous, Once in imaging, contrast, Starting on Sat06/30/21 at 1829, For 1 dose Contrast Given 06/30/2021 6:29 PM REGISTERED NURSE MATERNAL CHILD 95 mL ketorolac (TORADOL) 30 mg/mL (1 mL) injection 30 mg 30 mg, intravenous, Once, On Sat06/30/21 at 1914, For 1 dose, For Adult IV push, administer over 15 seconds Given 06/30/2021 7:27 PM REGISTERED NURSE MATERNAL CHILD 30 mg morphine injection 6 mg 6 mg, intravenous, Administer over 4 Minutes, Once, On Sat06/30/21 at 1747, For 1 dose Given 06/30/2021 6:13 PM REGISTERED NURSE MATERNAL CHILD 6 mg ondansetron (ZOFRAN) injection 4 mg 4 mg, intravenous, Administer over 2 Minutes, Once, On Sat06/30/21 at 1748, For 1 dose Given 06/30/2021 6:13 PM REGISTERED NURSE MATERNAL CHILD 4 mg sodium chloride 0.9% infusion 100 mL/hr, intravenous, Continuous, Starting on Sat06/30/21 at 1738 New Bag 06/30/2021 6:13 PM REGISTERED NURSE MATERNAL CHILD 100 mL/hr 100 mL/hr tamsulosin (FLOMAX) extended release capsule 0.4 mg 0.4 mg, oral, Once, On Sat06/30/21 at 1914, For 1 dose, Do not crush, chew, cut, dissolve, open or otherwise manipulate tablet/capsule. Given 06/30/2021 7:27 PM REGISTERED NURSE MATERNAL CHILD 0.4 mg documented in this encounter Active and Recently Administered Medications Times are shown in REGISTERED NURSE MATERNAL CHILD. Scheduled Medication Order 06/28/2021 06/29/2021 06/30/2021 ketorolac (TORADOL) 30 mg/mL (1 mL) injection 30 mg (COMPLETED) 30 mg, intravenous, Once, On Sat06/30/21 at 1914, For 1 dose, For Adult IV push, administer over 15 seconds 1926 (Given - Provid er: Gennaro Geronimo RN) morphine injection 6 mg (COMPLETED) 6 mg, intravenous, Administer over 4 Minutes, Once, On Sat06/30/21 at 1747, For 1 dose 1812 (Given - Provid er: Gennaro Geronimo RN) ondansetron (ZOFRAN) injection 4 mg (COMPLETED) 4 mg, intravenous, Administer over 2 Minutes, Once, On Sat06/30/21 at 1748, For 1 dose 1812 (Given - Provid er: Gennaro Geronimo RN) sodium chloride 0.9% bolus 1,000 mL 1,000 mL, intravenous, at 1,000 mL/hr, Administer over 1 Hours, Once, On Sat06/30/21 at 1914, For 1 dose 2018 (Not Given - Pr ovider: Gennaro Geronimo RN - Reason: Other - Comment: Ordered to covert curent infusion to bolus dose. No need for new bag.) tamsulosin (FLOMAX) extended release capsule 0.4 mg (COMPLETED) 0.4 mg, oral, Once, On Sat06/30/21 at 1914, For 1 dose, Do not crush, chew, cut, dissolve, open or otherwise manipulate tablet/capsule. 1926 (Given - Provid er: Gennaro Geronimo RN) Continuous Medication Order 06/28/2021 06/29/2021 06/30/2021 sodium chloride 0.9% infusion 100 mL/hr, intravenous, Continuous, Starting on Sat06/30/21 at 1738 181 (New Bag - Prov ider: Gennaro Geronimo RN)2018 (Stopped - Provider: Gennaro Geronimo RN) PRN Medication Order 06/28/2021 06/29/2021 06/30/2021 ioversoL (OPTIRAY 350) syringe syringe 100 mL (COMPLETED) 100 mL, intravenous, Once in imaging, contrast, Starting on Sat06/30/21 at 1829, For 1 dose 1829 (Contrast Given - Provider: Beti Hull, RT) documented in this encounter Orders Medications Ordered That Doron ht Not Have Been Administered Count Last Ordered Date First Ordered Date sodium chloride 0.9% bolus 1,000 mL 1 06/30 IV Count Last Ordered Date First Orde red Date SALINE LOCK IV 1 06/30/2021 documented in this encounter Care Teams Denture Laboratory Technician Relationship Specialty Start Date End Date Bhupinder Tobias MD [address] [place] [address] PCP - General Internal Medicine 06/03/20 Cash Heath III, MD [address] [facility] [address] [place] [address] Rheumatology 04/12/17 Jorge Aguiar MD [address] [facility] [address] [place] [address] Consulting Physician Urology 11/10/20 Khoa Arias MD [address] [facility] [address] [place] [address] Referring Physician Gastroenterology 03/20/21 documented as of this encounter
--- OUTSIDE RECORDS SUMMARY | 2024-04-29 19:23 | XMS_ITS | Encounter Summary ---
Author Organization [facility] logy Address [address] [place] [address] Phone Care Team Providers Care Light Industrial Name Role Phone Kumar CARRILLO MD, Cash Howard Unavailable Bhupinder Tobias MD Primary Care Provider [phone] Jorge Aguiar MD Unavailable [phone] Khoa Arias MD Unavailable [phone] Reason for Visit * Reason Onset Date Comments ER Follow Up Questions 07/03/2021 Encounter Details Date Type Department Care Team (Late st Contact Info) Description 07/03/[address] [address] [facility] Rainey ER Follow Up Questions Social History Tobacco Use Types Packs/Day Years Used Date Smoking Tobacco: Never Alcohol Use Standard Drinks/Week Comments No 0 (1 standard drink = 0.6 oz pur e alcohol) Comments No Sex and Gender Information Value Date Recorded Sex Assigned at Not on file 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 Asked pt to call to move up her appt if she starts to flare. * Telephone Encounter - Miriam Frye PA - 07/03/2021 11:13 AM CDT I would have her stop arava and see how she does. Does not usually cause pancreatitis, imuran was more likely to do it but will stop it and see if this is not the cause. * Telephone Encounter - Tiara Rainey - 07/03/2021 9:54 AM CDT Pt reports she did go to ER Saturday & was dx'ed w/chronic low-level pancreatitis. She also has multiple bilateral kidney stones which may be contributing to her pain. Pt wants to know if any of the meds we have her on could be contributing to the pancreatitis. documented in this encounter Plan of Treatment Not on file documented as of this encounter Visit Diagnoses Not on filedocumented in this encounter Care Teams Light Industrial Relationship Specialty Start Date End Date Bhupinder Tobias MD [address] [facility] [address] [place] [address] PCP - General Internal Medicine 06/03/20 Cash Heath III, MD [address] [place] [address] Rheumatology 04/12/17 Jorge Aguiar MD [address] [facility] [address] [place] [address] Consulting Physician Urology 7/22/21 Khoa Arias MD [address] [place] [address] Referring Physician Gastroenterology 03/20/21 documented as of this encounter
--- OUTSIDE RECORDS SUMMARY | 2024-04-29 19:23 | XMS_ITS | Encounter Summary ---
Author Organization [facility] Address [address] [place] [address] Phone Care Team Providers Care Slot Tag Inserter Name Role Phone Kumar CARRILLO MD, Cash Howard Unavailable [phone] Bhupinder Tobias MD Primary Care Provider [phone] Jorge Aguiar MD Unavailable [phone] Khoa Arias MD Unavailable [phone] Encounter Details Date Type Department Care Team (Late st Contact Info) Description 05/26/2021 Telephone [facility] [address] [place] [phone] Tiara Rainey Social History Tobacco Use Types Packs/Day Years Used Date Smoking Tobacco: Never Alcohol Use Standard Drinks/Week Comments No 0 (1 standard drink = 0.6 oz pur e alcohol) Comments No Sex and Gender Information Value Date Recorded Sex Assigned at Not on file 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 Lim: JORDANCP Per chart review pt is no longer on Stelara but is now on Orencia IV. PA request archived on [employer]. ION FUND MANAGER documented in this encounter Plan of Treatment Not on file documented as of this encounter Visit Diagnoses Not on filedocumented in this encounter Care Teams Slot Tag Inserter Relationship Specialty Start Date End Date Bhupinder Tobias MD [address] [facility] [address] [place] [address] PCP - General Internal Medicine 06/03/20 Cash Heath III, MD [address] [facility] [address] [place] [address] Rheumatology 04/12/17 Jorge Aguiar MD [address] [address] Consulting Physician Urology 11/10/20 Khoa Arias MD [address] [address] Referring Physician Gastroenterology 03/20/21 documented as of this encounter
--- OUTSIDE RECORDS SUMMARY | 2024-04-29 19:23 | XMS_ITS | Encounter Summary ---
Author Organization [facility] Address [address] [place] [phone] Phone Care Team Providers Care [employer] Attendant Name Role Phone Kumar CARRILLO MD, Cash Howard Unavailable [phone] Bhupinder Tobias MD Primary Care Provider [phone] Jorge Aguiar MD Unavailable [phone] Khoa Arias MD Unavailable [phone] Encounter Details Date Type Department Care Team (Late st Contact Info) Description 03/31/2021 8:45 AM HOSPITALITY HOUSEKEEPER Office Visit [facility] [address] [place] [phone] Miriam Frye PA [address] [place] [id number] Psoriatic arthritis (CMS/HCC) (HCC) (Primary Dx); Encounter for long-term (current) use of medications; Abdominal pain Social History Tobacco Use Types Packs/Day Years Used Date Smoking Tobacco: Never Alcohol Use Standard Drinks/Week Comments No 0 (1 standard drink = 0.6 oz pur e alcohol) Comments No Sex and Gender Information Value Date Recorded Sex Assigned at Not on file Legal Sex Female 9:24 PM HOSPITALITY HOUSEKEEPER Gender Identity Female 08/14/2022 11:32 AM CDT Sexual Orientation Straight 02/13/2023 7: 01 AM CDT documented as of this encounter Last Filed Vital Signs Vital Sign Reading Time Taken Comments Blood Pressure 134/82 03/31/2021 8:43 AM HOSPITALITY HOUSEKEEPER Pulse 99 03/31/2021 8:43 AM HOSPITALITY HOUSEKEEPER Temperature 36.5 ??C (97.7 ??F) 03/31/2021 8:43 AM CS T Respiratory Rate - - Oxygen Saturation 98% 03/31/2021 8:43 AM HOSPITALITY HOUSEKEEPER Inhaled Oxygen Concentration - - Weight 88.2 kg (194 lb 6.4 oz) 03/31/2021 8:43 A M HOSPITALITY HOUSEKEEPER Height - - Body Mass Index 31.38 06/03/2020 3:14 PM HOSPITALITY HOUSEKEEPER documented in this encounter Patient Instructions * Patient Instructions* Miriam Frye PA - 03/31/2021 8:45 AM HOSPITALITY HOUSEKEEPER Patient Education Patient Education Triamcinolone (By injection) Triamcinolone (exnz-fe-VQO-oh-lone) Treats many diseases and conditions, especially problems related to inflammation. May reduce inflammation in joints. This medicine is a corticosteroid. Brand Name(s): Active Injection Kit KL-3, Active Injection Kit KM, Arze-Ject-A, BT Injection Kit, Bupivilog Kit, DermacinRx Cinlone-I CPI, Interarticular Joint Kit, JTT Physicians Kit, Kenalog-10, Kenalog-40, LT Injection Kit, Lidolog Kit, MLK F1 Kit, MLK F2 Kit, MLK F3 Kit There may be other brand names for this medicine. When This Medicine Should Not Be Used: You should not receive this medicine if you have had an allergic reaction to triamcinolone. You should not receive this medicine if you have fungal infections or a condition called idiopathic thrombocytopenic purpura. This medicine should not be given to premature babies. How to Use This Medicine: Injectable ?? Your doctor will prescribe your exact dose and tell you how often it should be given. This medicine is given as a shot into one of your muscles, a joint, or a spot on your skin called a lesion. ?? A nurse or other health provider will give you this medicine. ?? Carefully follow your doctor's instructions about any special diet. If a dose is missed: ?? You must use this medicine on a fixed schedule. Call your doctor or pharmacist if you miss a dose. Drugs and Foods to Avoid: Ask your doctor or pharmacist before using any other medicine, including bmmq-tmt-pmujslv medicines, vitamins, and herbal products. ?? There are many other drugs that can interact with triamcinolone. Make sure your doctor knows about all other medicines you are using. ?? Make sure your doctor knows if you are using aminoglutethimide (Cytadren??), cholestyramine (Questran??), cyclosporine (Gengraf??, Neoral??, Sandimmune??), digoxin (Lanoxin??), isoniazid (Nydrazid??), ketoconazole (Nizoral??), pancuronium (Pavulon??), phenobarbital (Luminal??), phenytoin (Dilantin??), or rifampin (Rifadin??). Tell your doctor if you are using control pills, pain or arthritis medicine called NSAIDs (such as aspirin, diclofenac, ibuprofen, naproxen, Advil??, Aleve??, Celebrex??, Ecotrin??, Motrin??, or Voltaren??), or a blood thinner (such as warfarin, Coumadin??). ?? Make sure your doctor knows if you are using medicine to treat an infection (such as amphotericin B, clarithromycin, erythromycin, troleandomycin, Biaxin??, Marcelo-tab??, or Zithromax??), a diuretic or water pill (such as furosemide, hydrochlorothiazide [HCTZ], or Lasix??), or diabetes medicine (such as insulin, glyburide, metformin, Actos??, Avandia??, Glucotrol??,or Glucovance??). ?? This medicine may interfere with vaccines. Ask your doctor before you get a flu shot or any other vaccines. Warnings While Using This Medicine: ?? Make sure your doctor knows if you are or , or if you have recently spent time in a tropical climate. ?? Make sure your doctor knows if you have kidney disease, liver disease, diabetes, tuberculosis, stomach or bowel problems, cataracts, glaucoma, or herpes simplex infection in your eyes. Tell your doctor if you have a mental condition, bone problems (such as osteoporosis), myasthenia gravis, or a thyroid disorder. ?? Make sure your doctor knows if you have heart disease, congestive heart failure, high blood pressure, or a recent heart attack. Tell your doctor if you have certain infections (such as amoebiasis or candidiasis), viral infections, cerebral malaria, or threadworm infestation. ?? This medicine may cause a serious type of allergic reaction called anaphylaxis. Anaphylaxis can be life-threatening and requires immediate medical attention. You will be observed for signs and symptoms of anaphylaxis after you receive this medicine. Tell your doctor right away about any unusual effects you may have. ?? Using too much of this medicine or using it for a long time may increase your risk of having adrenal gland problems. The risk is greater for children and for patients who use large amounts for a long time. Talk to your doctor if you have more than one of these symptoms while you are using this medicine: blurred vision; dizziness or fainting; a fast, pounding, or uneven heartbeat; increased thirst or urination; irritability; or unusual tiredness or weakness. ?? Let your doctor know if you have any events causing unusual stress or anxiety in your life. Yourdose of this medicine may need to be changed. ?? It may be easier for you to get an infection while you are receiving triamcinolone. Avoid crowded places or being near people who are sick. If you are exposed to chicken pox or measles, tell your doctor right away. ?? This medicine contains benzyl alcohol that may cause problems (such as low blood pressure and metabolic acidosis) when given too much especially to babies. ?? Tell any doctor or dentist who treats you that you are using this medicine. This medicine may affect certain medical test results. ?? Do not stop using this medicine suddenly. Your doctor will need to slowly decrease your dose before you stop it completely. ?? Your doctor will check your progress and the effects of this medicine at regular visits. Keep all appointments. Possible Side Effects While Using This Medicine: Call your doctor right away if you notice any of these side effects: ?? Allergic reaction: Itching or hives, swelling in your face or hands, swelling or tingling in your mouth or throat, chest tightness, trouble breathing ?? Blurred vision or changes in vision. ?? Bloody or black, tarry stools. ?? Change in how much or how often you urinate. ?? Chest pain or discomfort. ?? Dry mouth, increased thirst, muscle cramps, nausea, or vomiting. ?? Fast, slow, pounding, or uneven heartbeat. ?? Fever, chills, cough, sore throat, and body aches. ?? Muscle weakness or cramps, or sudden joint pain. ?? Numbness or weakness in your arm or leg, or on one side of your body. ?? Seizures. ?? Severe headache or pain behind your eyes. ?? Shortness of breath, cold sweat, or bluish-colored skin. ?? Slowed growth in children. ?? Stopping of heart, no blood pressure or pulse, or unconsciousness. ?? Swelling in your hands, ankles, or feet. ?? Unusual bleeding, bruising, or weakness. ?? Vomiting of blood or material that looks like coffee grounds. If you notice these less serious side effects, talk with your doctor: ?? Blemishes on the skin or pimples. ?? Changes in your menstrual periods. ?? Diarrhea. ?? Feeling sad or depressed. ?? Gaining weight around your neck, upper back, breast, face, or waist. ?? Mild skin rash. ?? Mood swings, unusual thoughts or behavior. ?? Restlessness, anxiety, or increased appetite. ?? Swelling of abdominal or stomach area, full or bloated feeling, or pressure in the stomach. ?? Thinning skin, changes in skin color, and increased hair growth. If you notice other side effects that you think are caused by this medicine, tell your doctor. Call your doctor for medical advice about side effects. You may report side effects to FDA at 9-117-BBS-9334 ?? 2017 [employer] Information is for End User's use only and may not be sold, redistributed or otherwise used for commercial purposes. The above information is an technical aide only. It is not intended as medical advice for individual conditions or treatments. Talk to your doctor, nurse or pharmacist before following any medical regimen to see if it is safe and effective for you. Leflunomide (By mouth) Leflunomide (bl-IBOT-rov-mide) Treats rheumatoid arthritis. Brand Name(s): Arava There may be other brand names for this medicine. When This Medicine Should Not Be Used: This medicine is not right for everyone. Do not use it if you had an allergic reaction to leflunomide, or if you are or . How to Use This Medicine: Tablet ?? Take your medicine as directed. Your dose may need to be changed several times to find what works best for you. ?? Missed dose: Take a dose as [...] pharmacist before using any other medicine, including scwm-qxq-fjrhtqu medicines, vitamins, and herbal products. ?? Do not use this medicine if you are also using teriflunomide. ?? Some medicines can affect how leflunomide works. Tell your doctor if you are using any of the following: ?? Alosetron, cefaclor, cimetidine, ciprofloxacin, duloxetine, furosemide, ketoprofen, methotrexate, mitoxantrone, paclitaxel, penicillin G, pioglitazone, rifampin, rosiglitazone, theophylline, tizanidine, warfarin, zidovudine ?? control pills ?? Medicines that weaken your immune system, including a steroid or cancer medicines ?? Statin medicine (including atorvastatin, nateglinide, pravastatin, repaglinide, simvastatin) ?? Ask your doctor before you get a flu shot or any other vaccines. You should not receive live virus vaccines while you are taking this medicine. Warnings While Using This Medicine: ?? It is not safe to take this medicine during . It could harm an unborn baby. Tell your doctor right away if you become . ?? Tell your doctor if you have kidney disease, liver disease, diabetes, any infection, lung disease, or a history of tuberculosis or blood or bone marrow problems. ?? This medicine may cause the following problems: ?? Liver problems ?? Serious skin reactions, including drug reaction with eosinophilia and systemic reaction which can cause organ damage ?? Possible increased risk of cancer ?? Nerve problems ?? Lung problems ?? This medicine may make you bleed, bruise, or get infections more easily. Take precautions to prevent illness and injury. Wash your hands often. ?? Your doctor will do lab tests at regular visits to check on the effects of this medicine. Keep all appointments. Your doctor will also check your blood pressure. ?? Keep all medicine out of the reach of children. Never share your medicine with anyone. Possible Side Effects While Using This Medicine: Call your doctor right away if you notice any of these side effects: ?? Allergic reaction: Itching or hives, swelling in your face or hands, swelling or tingling in your mouth or throat, chest tightness, trouble breathing ?? Blistering, peeling, or red skin rash ?? Chest pain or discomfort, trouble breathing ?? Dark urine or pale stools, nausea, vomiting, loss of appetite, stomach pain, yellow eyes or skin ?? Fever, chills, cough, sore throat, body aches ?? Numbness, tingling, or burning pain in your hands, arms, legs, or feet ?? Unusual bleeding, bruising, or weakness If you notice these less serious side effects, talk with your doctor: ?? Diarrhea ?? Hair loss If you notice other side effects that you think are caused by this medicine, tell your doctor. Call your doctor for medical advice about side effects. You may report side effects to FDA at 1-267-EVH-6838 ?? 2017 [employer] Information is for End User's use only and may not be sold, redistributed or otherwise used for commercial purposes. The above information is an technical aide only. It is not intended as medical advice for individual conditions or treatments. Talk to your doctor, nurse or pharmacist before following any medical regimen to see if it is safe and effective for you. ITALITY HOUSEKEEPER documented in this encounter Ordered Prescriptions Prescription Sig Dispense Quantity Refills Last Filled Start Date End Date leflunomide (ARAVA) 10 mg tabletIndications: Rheumatoid Arthritis Take 1 tablet (10 mg total) by mouth daily 30 tablet 03/31/2021 03/31/2021 documented in this encounter Progress Notes * Miriam Frye PA - 03/31/2021 8:45 AM CST Images from the original note were not included. Subjective/Objective Patient ID: Madalyn Smith is a 45 y.o. female. Chief Complaint PsA HPI Flaring up. Within a day of getting of prednisone her joints started hurting a lot again. Hands andwrists, feet and ankles are very stiff, swollen and painful. By the end of the day pt states she can barely move. No sob,c p, rashes, oral ornose ulcers. No abd pain. Sees gi for elevated lipase end of April, this was the earliest day they could give her an appt since he was out of town. No infections. Has not restarted her orencia iv yet. Review of Systems Constitutional: Negative for fatigue [...] dry. Psychiatric: Normal mood. Vitals reviewed. CDAI: 30 Labs Lab Results Component Value Date WBC 9.7 03/15/2021 HGB 13.1 03/15/2021 HCT 40.8 03/15/2021 MCV 90.1 03/15/2021 Lab Results Component Value Date GLUCOSE 83 03/15/2021 CALCIUM 8.9 03/15/2021 SODIUM 137 03/15/2021 POTASSIUM 4.9 03/15/2021 CO2 21 03/15/2021 CHLORIDE 105 03/15/2021 BUNSER 17 03/15/2021 CREATININE 0.93 03/15/2021 Lab Results Component Value Date ALT 25 03/15/2021 AST 25 03/15/2021 ALKPHOS 78 03/15/2021 BILITOT 0.6 03/15/2021 Lab Results Component Value Date SEDRATE TNP 03/15/2021 Lab Results Component Value Date CRP 13.0 (H) 03/15/2021 Assessment/Plan Diagnoses and all orders for this visit: Psoriatic arthritis (CMS/HCC) (HCC) (Primary) Assessment & Plan: High cdai. Flaring up. Due to burden of dz will give her 100mg of triamcinolone IM today. Discussedrisks and se of systemic steroids. Stop imuran and start arava 10mg po every day, discussed potential se. F/u in 1 month to recheck labs. Seen with dr woodruff today. Schedule orencia iv. She will f/u with pcp and gi for her lipase. Past serologies: [facility] panel 08/2019---labs reveal positive anti-CHECK EXAMINER antibody which is likely a false positive [...] Future - Amylase; Future - Lipase; Future - triamcinolone (KENALOG) 40 mg/mL injection 100 mg Encounter for long-term (current) use of medications [...] showed osteoporosis [facility] 08/2019---[facility] labs reveal positive anti-CHECK EXAMINER antibody which is likely a false positive due tonegative ASHLEY. Her father had psoriasis, pt changed from ra to PsA on 03/25/2020. ?? Orders: - Amylase; Future - Lipase; Future - triamcinolone (KENALOG) 40 mg/mL injection 100 mg Abdominal pain Assessment & Plan: Elevated lipase. Imuran stopped. Pt advised to f/u with gi. Recheck labs today. Orders: - Amylase; Future - Lipase; Future Other orders - leflunomide (ARAVA) 10 mg tablet; Take 1 tablet (10 mg total) by mouth daily Cosigned by Cash Woodruff III, MD at 03/31/2021 4:03 PM HOSPITALITY HOUSEKEEPER ITALITY HOUSEKEEPER ITALITY HOUSEKEEPER documented in this encounter Miscellaneous Notes * Assessment & Plan Note - Miriam Frye PA - 03/31/2021 8:44 AM CSTAssociated Problem(s): Abdominal pain Elevated lipase. Imuran stopped. Pt advised to f/u with gi. Recheck labs today. ITALITY HOUSEKEEPER * Assessment & Plan Note - Miriam Frye PA - 03/31/2021 8:18 AM CSTAssociated Problem(s): Encounter for long-term (current) [...] showed osteoporosis [facility] 08/2019---[facility] labs reveal positive anti-CHECK EXAMINER antibody which is likely a false positive due tonegative ASHLEY. Her father had psoriasis, pt changed from ra to PsA on 03/25/2020. ?? ITALITY HOUSEKEEPER ITALITY HOUSEKEEPER * Assessment & Plan Note - Miriam Frye PA - 03/31/2021 8:18 AM CSTAssociated Problem(s): Psoriatic arthritis (HCC) Images from the original note were not included. High cdai. Flaring up. Due to burden of dz will give her 100mg of triamcinolone IM today. Discussedrisks and se of systemic steroids. Stop imuran and start arava 10mg po every day, discussed potential se. F/u in 1 month to recheck labs. Seen with dr woodruff today. Schedule orencia iv. She will f/u with pcp and gi for her lipase. Past serologies: [facility] panel 08/2019---labs reveal positive anti-CHECK EXAMINER antibody which is likely a false positive due tonegative ASHLEY. ?? RF neg but has a possible family hx of psoriatic arthritis (father) so if she develops psoriasis diagnosis will change to psoriatic arthritis. Rt hand US 09/2019 showed: ?? ITALITY HOUSEKEEPER ITALITY HOUSEKEEPER ITALITY HOUSEKEEPER documented in this encounter Plan of Treatment Scheduled Orders Name Type Priority Associated Diagnoses Orde r Schedule Amylase Lab Routine Psoriatic arthritis ([facility]/HCC) ([facility]) Encounter for long-term (current) use of medications Abdominal pain Expected: 03/31/2021, Expires: 03/31/2022 Lipase Lab Routine Psoriatic arthritis ([facility]) ([facility]) Encounter for long-term (current) use of medications Abdominal pain Expected: 03/31/2021, Expires: 03/31/2022 documented as of this encounter Procedures Procedure Name Priority Date/Time Associated Diagnosis Comments CBC WITH AUTO DIFFERENTIAL Routine 03/31/2021 9:47 AM HOSPITALITY HOUSEKEEPER Psoriatic arthritis (CMS/HCC) (HCC) ERYTHROCYTE SEDIMENTATION RATE Routine 03/31/2021 9:47 AM HOSPITALITY HOUSEKEEPER Psoriatic arthritis (CMS/HCC) (HCC) CRP (ACUTE PHASE) Routine 03/31/2021 9:4 7 AM HOSPITALITY HOUSEKEEPER Psoriatic arthritis (CMS/HCC) (HCC) COMPREHENSIVE METABOLIC PANEL Routine 03/31/2021 9:47 AM HOSPITALITY HOUSEKEEPER Psoriatic arthritis (CMS/HCC) (HCC) documented in this encounter Results * Erythrocyte sedimentation rate (03/31/2021 9:47 AM HOSPITALITY HOUSEKEEPER) Erythrocyte sedimentation rate 8 < OR = 20 mm/h [facility]eline Nestor Blood specimen (specimen) 03/31/2021 9:47 AM HOSPITALITY HOUSEKEEPER 03/31/2021 9:48 AM HOSPITALITY HOUSEKEEPER Miriam VALLE LAB BLOOD ORDERAB LES Final Result [facility] [facility] [address] [place] [address] * CRP (acute phase) (03/31/2021 9:47 AM HOSPITALITY HOUSEKEEPER) C-RP 3.9 <8.0 mg/L [facility]Van[facility] evy Blood specimen (specimen) 03/31/2021 9:47 AM HOSPITALITY HOUSEKEEPER 03/31/2021 9:48 AM HOSPITALITY HOUSEKEEPER Miriam VALLE LAB BLOOD ORDERAB LES Final Result [facility] [address] [address] [id number] * (ABNORMAL) Comprehensive metabolic panel (03/31/2021 9:47 AM HOSPITALITY HOUSEKEEPER) Glucose 115(H) 65 - 99 mg/dL [facility] Comment: ? Fasting reference interval For someone without known diabetes, a glucose value between 100 and 125 mg/dL is consistent with prediabetes and should be confirmed with a follow-up test. BUN 17 7 - 25 mg/dL [facility] Creatinine 1.04 0.50 - 1.10 mg/dL [facility] eGFR NON-AFR. SWISS 64 > OR = 60 mL/min/1. 73m2 [facility] EGFR 75 > OR = 60 mL/min/1. 73m2 [facility] BUN/creat ratio NOT APPLICABLE 6 - 22 (calc) [facility] Sodium 135 135 - 146 mmol/L [facility] Potassium, pl 4.6 3.5 - 5.3 mmol/L [facility] Chloride 103 98 - 110 mmol/L [facility] CO2 21 20 - 32 mmol/L [facility] Calcium 9.5 8.6 - 10.2 mg/dL [facility] Protein, sr 7.4 6.1 - 8.1 g/dL [facility] Albumin 4.4 3.6 - 5.1 g/dL [facility] GLOBULIN 3.0 1.9 - 3.7 g/dL (calc) [facility] Alb/glob ratio 1.5 1.0 - 2.5 (calc) [facility] Bilirubin, total 0.6 0.2 - 1.2 mg/dL [facility] Alk phos 91 31 - 125 U/L [facility] AST 15 10 - 35 U/L [facility] ALT (SGPT) 21 6 - 29 U/L [facility] Blood specimen (specimen) 03/31/2021 9:47 AM HOSPITALITY HOUSEKEEPER 03/31/2021 9:48 AM HOSPITALITY HOUSEKEEPER us Miriam VALLE LAB BLOOD ORDERAB LES Final Result [facility] [address] [place] [address] * CBC with auto differential (03/31/2021 9:47 AM HOSPITALITY HOUSEKEEPER) WBC 6.5 3.8 - 10.8 Thousand/u L [facility] RBC, POC 5.05 3.80 - 5.10 Million/uL [facility] Hgb 14.6 11.7 - 15.5 g/dL [facility] Hct 44.9 35.0 - 45.0 % [facility] MCV 88.9 80.0 - 100.0 fL [facility] MCH 28.9 27.0 - 33.0 pg [facility] MCHC 32.5 32.0 - 36.0 g/dL [facility] Rdw 12.8 11.0 - 15.0 % [facility] Platelets 348 140 - 400 Thousand/u L [facility] MPV 9.4 7.5 - 12.5 fL [facility] Neutrophils, abs 4,381 1,500 - 7,800 cells/uL [facility] Lymphocytes, abs 1,521 850 - 3,900 cells/uL [facility] Monocyte abs 364 200 - 950 cells/uL [facility] Eosinophils, abs 143 15 - 500 cells/uL [facility] Basophils, abs 91 0 - 200 cells/uL [facility] Neutrophils 67.4 % [facility] Lymphocyte pct 23.4 % [facility] Monocytes 5.6 % [facility] Eosinophils 2.2 % [facility] Basophils 1.4 % [facility] Blood specimen (specimen) 03/31/2021 9:47 AM HOSPITALITY HOUSEKEEPER 03/31/2021 9:48 AM HOSPITALITY HOUSEKEEPER Miriam VALLE LAB BLOOD ORDERAB LES Final Result [facility] [address] [place] [id number] documented in this encounter Visit Diagnoses Diagnosis Psoriatic arthritis (HCC)- Primary Psoriatic arthropathy Encounter for long-term (current) use of medications Encounter for long-term (current) use of other medications Abdominal pain Abdominal pain, unspecified site documented in this encounter Administered Medications Inactive Administered Medications - up to 3 most recent administrations Medication Order MAR Action Action Date Dose Rate Site triamcinolone (KENALOG) 40 mg/mL injection 100 mg 100 mg, intramuscular, Once, On Sat03/31/21 at 1000, For 1 doseIndications:Psoriatic arthritis (HCC),Encounter for long-term (current) use of medications Given 03/31/2021 10:03 AM HOSPITALITY HOUSEKEEPER 100 mg Left Dorsogluteal/Butt ock documented in this encounter Care Teams [employer] Att[employer] Relationship Specialty Start Date End Date Bhupinder Tobias MD [address] [place], [place] [id number] PCP - General Internal Medicine 06/03/20 Cash Woodruff III, MD [address] [facility] [address] [place] [address] Rheumatology 04/12/17 Jorge Aguiar MD [address] [place] [address] Consulting Physician Urology 11/10/20 Khoa Arias MD [address] [place] [address] Referring Physician Gastroenterology 03/20/21 documented as of this encounter
--- OUTSIDE RECORDS SUMMARY | 2024-04-29 19:23 | XMS_ITS | Encounter Summary ---
Author Organization [facility] Address [address] [place] [address] Phone Care Team Providers Care Crude Tester Name Role Phone Isaiah Quiros MD Unavailable Isaiah Quiros MD Primary Care Provider [phone] Kumar CARRILLO MD, Cash Howard Unavailable Alex Mahajan MD Unavailable [phone] Encounter Details Date Type Department Care Team (Late st Contact Info) Description 03/25/2020 Telephone [facility] [address] [place] [address] Miriam Frye PA [address] [place] [address] Social History Tobacco Use Types Packs/Day Years Used Date Smoking Tobacco: Never Alcohol Use Standard Drinks/Week Comments No 0 (1 standard drink = 0.6 oz pur e alcohol) Comments No Sex and Gender Information Value Date Recorded Sex Assigned at Not on file Legal Sex Female 9:24 PM REGIONAL FACILITIES SPECIALIST Gender Identity Female 08/14/2022 11:32 AM CDT Sexual Orientation Straight 02/13/2023 7: 01 AM CDT documented as of this encounter Miscellaneous Notes * Telephone Encounter - Tiara Rainey - 03/28/2020 9:00 AM CST PA request sent to [facility] ONAL FACILITIES SPECIALIST * Telephone Encounter - Kraig Garcia - 03/25/2020 3:12 PM CST Paperwork ready, awaiting ov note to be completed. ONAL FACILITIES SPECIALIST * Telephone Encounter - Miriam Frye PA - 03/25/2020 2:58 PM CST Start cosentyx approval. Stop orencia sq. 1st shot in the office. ONAL FACILITIES SPECIALIST ONAL FACILITIES SPECIALIST documented in this encounter Plan of Treatment Not on file documented as of this encounter Visit Diagnoses Not on filedocumented in this encounter Care Teams Crude Tester Relationship Specialty Start Date End Date Isaiah Quiros MD [address] [place] [address] PCP - General Internal Medicine 04/01/17 06/02/20 Isaiah Quiros MD [address] [place] [address] Internal Medicine 02/18/17 03/19/21 Cash Heath III, MD [address] [place] [address] Rheumatology 04/12/17 Alex Mahajan MD [address] [place] [address] Referring Physician Internal Medicine 05/07/19 1 documented as of this encounter
--- OUTSIDE RECORDS SUMMARY | 2024-04-29 19:23 | XMS_ITS | Encounter Summary ---
Author Organization [facility] Address [address] [place] [address] Phone Care Team Providers Care Marketing Systems Manager Name Role Phone Isaiah Quiros MD Unavailable Kumar CARRILLO MD, Cash Howard Unavailable [phone] Alex Mahajan MD Unavailable [phone] Bhupinder Tobias MD Unavailable [phone] Bhupinder Tobias MD Primary Care Provider [phone] Jorge Aguiar MD Unavailable [phone] Reason for Visit * Reason Onset Date Comments Went to ER Yesterday 03/03/2021 Encounter Details Date Type Department Care Team (Late st Contact Info) Description 03/03/2021 Telephone [facility] [address] [place] [address] Tiara Rainey Went to ER Yesterday Social History Tobacco Use Types Packs/Day Years Used Date Smoking Tobacco: Never Alcohol Use Standard Drinks/Week Comments No 0 (1 standard drink = 0.6 oz pur e alcohol) Comments No Sex and Gender Information Value Date Recorded Sex Assigned at Not on file Legal Sex Female 9:24 PM COMMERCIAL DRIVER'S LICENSE DRIVER Gender Identity Female 08/14/2022 11:32 AM CDT Sexual Orientation Straight 02/13/2023 7: 01 AM CDT documented as of this encounter Miscellaneous Notes * Telephone Encounter - Tiara Rainey - 03/03/2021 2:14 PM CST Pt reports she has been off the AZA for 3 weeks as you told her to hold it for 4 weeks after she received her COVID booster. She will remain off the AZA. Pt voices understanding of going to ER if theabd pain continues or worsens. ERCIAL DRIVER'S LICENSE DRIVER * Telephone Encounter - Miriam Frye PA - 03/03/2021 2:12 PM CST If lipase was elevated could be pancreatitis and imuran needs to be stopped also. Should go back toer if she is having bad abd pain. Go to [facility]. ERCIAL DRIVER'S LICENSE DRIVER * Telephone Encounter - Tiara Rainey - 03/03/2021 10:25 AM CST Pt reports she went to [facility] several days ago for severe abd pain. She had several tests showing elevated liver enzymes & CT showing hemangioma. They did not admit her. She went to pcp for follow up & when her pain was worse yesterday pcp sent her to a different ER. Her liver enzymes were better there but Lipase & ALT still elevated. She also has hematuria but is known to have hx of kidney stones. She is going to send us copies of the 1st labs form [facility] & I printed theresults from [facility] out of Care Everywhere. Pt is going to call urologist for appt & also plans to ask pcp for referral to gi. She did not keep her appt for infusion yesterday since she was in ER. Told pt we need to resolve these other issues prior to rescheduling her infusion. Pt voices understanding. ERCIAL DRIVER'S LICENSE DRIVER documented in this encounter Plan of Treatment Not on file documented as of this encounter Visit Diagnoses Not on filedocumented in this encounter Care Teams Marketing Systems Manager Relationship Specialty Start Date End Date Bhupinder Tobias MD [address] [place] [address] PCP - General Internal Medicine 06/03/20 Isaiah Quiros MD [address] [facility] [address] [place] [address] Internal Medicine 02/18/17 03/19/21 Cash Heath III, MD [address] [place] [address] Rheumatology 04/12/17 Alxe Mahajan MD [address] [place] [address] Referring Physician Internal Medicine 05/07/19 1 Bhupinder Tobias MD [address] [place] [address] Referring Physician Internal Medicine 06/03/20 1 Jorge Aguiar MD [address] [place] [address] Consulting Physician Urology 11/10/20 documented as of this encounter
--- OUTSIDE RECORDS SUMMARY | 2024-04-29 19:23 | XMS_ITS | Encounter Summary ---
Author Organization [facility] Address [address] [place] [address] Phone Care Team Providers Care Cycle Counter Name Role Phone Kumar CARRILLO MD, Cash Howard Unavailable [phone] Bhupinder Tobias MD Primary Care Provider [phone] Jorge Aguiar MD Unavailable Khoa Arias MD Unavailable [phone] Encounter Details Date Type Department Care Team (Late st Contact Info) Description 06/28/2021 9:45 AM HOOP PUNCH AND COILER OPERATOR HELPER Office Visit [facility] [address] [place] [phone] Miriam Frye PA [address] [place] [address] Psoriatic arthritis (CMS/HCC) (HCC) (Primary Dx); [...] on file Legal Sex Female 9:24 PM HOOP PUNCH AND COILER OPERATOR HELPER Gender Identity Female 08/14/2022 11:32 AM CDT Sexual Orientation Straight 02/13/2023 7: 01 AM CDT documented as of this encounter Last Filed Vital Signs Vital Sign Reading Time Taken Comments Blood Pressure 130/94 06/28/2021 9:50 AM HOOP PUNCH AND COILER OPERATOR HELPER Pulse 90 06/28/2021 9:50 AM HOOP PUNCH AND COILER OPERATOR HELPER Temperature 36.3 ??C (97.3 ??F) 06/28/2021 9:50 AM CS T Respiratory Rate - - Oxygen Saturation 97% 06/28/2021 9:50 AM HOOP PUNCH AND COILER OPERATOR HELPER Inhaled Oxygen Concentration - - Weight 86.5 kg (190 lb 9.6 oz) 06/28/2021 9:50 A M HOOP PUNCH AND COILER OPERATOR HELPER Height - - Body Mass Index 30.76 06/03/2020 3:14 PM HOOP PUNCH AND COILER OPERATOR HELPER documented in this encounter Progress Notes * Miriam Frye PA - 06/28/2021 9:45 AM CST Images from the original note were not included. Subjective/Objective Patient ID: Madalyn Smith is a 46 y.o. female. Chief Complaint Joint pain HPI Recently dx with mild pancreatitis. Needs lipase/amylase rechecked. Still has some upper abd pain. Was better for a while but in past 2 d having upper abd pain again. Has not f/u with gi for this yet. Has some nausea but no vomiting. Has not had orencia in over a month. She stopped imuran a month ago. She is taking arava 20mg po every day. She had pancreatitis symptoms before starting arava. Hands are painful. Thinks it is also due to weather. No rashes. Has a nose ulcers. No fever or cough. Feels best between 68-70F otherwise if lower temp she is freezing or higher she is sweating. Is able to eat bland things but has vomiting with anything more substantial. Review of Systems Constitutional: Negative for fatigue [...] and dry. Psychiatric: Normal mood. Vitals reviewed. abd very tender on palpation of upper abd bilat. No rebound tenderness. BS x 4. CDAI: 26 Labs Lab Results Component Value Date WBC 7.0 05/05/2021 HGB 13.9 05/05/2021 HCT 43.3 05/05/2021 MCV 87.7 05/05/2021 Lab Results Component Value Date GLUCOSE 90 05/05/2021 CALCIUM 9.3 05/05/2021 SODIUM 136 05/05/2021 POTASSIUM 4.3 05/05/2021 CO2 25 05/05/2021 CHLORIDE 104 05/05/2021 BUNSER 14 05/05/2021 CREATININE 1.08 05/05/2021 Lab Results Component Value Date ALT 14 05/05/2021 AST 11 05/05/2021 ALKPHOS 84 05/05/2021 BILITOT 0.3 05/05/2021 Lab Results Component Value Date SEDRATE 8 05/05/2021 Lab Results Component Value Date CRP 5.6 05/05/2021 Assessment/Plan Diagnoses and all orders for this visit: Psoriatic arthritis (CMS/HCC) ([facility]) (Primary) Assessment & Plan: High cdai. On arava 20mg po daily [...] Arias regarding abd pain and constipation, and recentincidental findings of mesenteric fat stranding, possible adenitis or panniculitis on abd CT (done for kidney stones). Past serologies: [facility] panel 08/2019---labs reveal positive anti-GOLF CART ATTENDANT antibody which is likely a false positive [...] - Amylase; Future - Lipase; Future - Urinalysis reflex to microscopic and culture Urine; Future Encounter for long-term (current) use of [...] showed osteoporosis [facility] 08/2019---[facility] labs reveal positive anti-GOLF CART ATTENDANT antibody which is likely a false positive due tonegative ASHLEY. Her father had psoriasis, pt changed from ra to PsA on 03/25/2020. ?? Orders: - CBC with auto differential; Future - Comprehensive metabolic panel; Future - CRP (acute phase); Future - Erythrocyte sedimentation rate; Future - Amylase; Future - Lipase; Future - Urinalysis reflex to microscopic and culture Urine; Future Abdominal pain Assessment & Plan: Recently dx with mild pancreatitis. Needs lipase/amylase rechecked. Still has some upper abd pain. Advised pt to f/u with GI also. Orders: - Amylase; Future - Lipase; Future - Urinalysis reflex to microscopic and culture Urine; Future Cosigned by Cash Woodruff III, MD at 06/28/2021 2:14 PM HOOP PUNCH AND COILER OPERATOR HELPER PUNCH AND COILER OPERATOR HELPER PUNCH AND COILER OPERATOR HELPER documented in this encounter Miscellaneous Notes * Assessment & Plan Note - Miriam Frye PA - 06/28/2021 10:08 AM CSTAssociated Problem(s): Abdominal pain Recently dx with mild pancreatitis. Needs lipase/amylase rechecked. Still has some upper abd pain. Advised pt to f/u with GI also. PUNCH AND COILER OPERATOR HELPER * Assessment & Plan Note - Miriam Frye PA - 06/28/2021 8:44 AM CSTAssociated Problem(s): Encounter for long-term (current) [...] showed osteoporosis [facility] 08/2019---[facility] labs reveal positive anti-GOLF CART ATTENDANT antibody which is likely a false positive due tonegative ASHLEY. Her father had psoriasis, pt changed from ra to PsA on 03/25/2020. ?? PUNCH AND COILER OPERATOR HELPER * Assessment & Plan Note - Miriam Frye PA - 06/28/2021 8:43 AM CSTAssociated Problem(s): Psoriatic arthritis (HCC) Images [...] Arias regarding abd pain and constipation, and recentincidental findings of mesenteric fat stranding, possible adenitis or panniculitis on abd CT (done for kidney stones). Past serologies: [facility] panel 08/2019---labs reveal positive anti-GOLF CART ATTENDANT antibody which is likely a false positive due tonegative ASHLEY. ?? RF neg but has a possible family hx of psoriatic arthritis (father) so if she develops psoriasis diagnosis will change to psoriatic arthritis. Rt hand US 09/2019 showed: ??F/u 1 month. PUNCH AND COILER OPERATOR HELPER PUNCH AND COILER OPERATOR HELPER documented in this encounter Plan of Treatment Scheduled Orders Name Type Priority Associated Diagnoses Orde r Schedule Amylase Lab Routine Psoriatic arthritis ([facility]) ([facility]) Encounter for long-term (current) use of medications Abdominal pain Expected: 06/28/2021, Expires: 06/28/2022 Lipase Lab Routine Psoriatic arthritis ([facility]) ([facility]) Encounter for long-term (current) use of medications Abdominal pain Expected: 06/28/2021, Expires: 06/28/2022 Urinalysis reflex to microscopic and culture Urine Microbiology Routine Psoriatic arthritis ([facility]) ([facility]) Encounter for long-term (current) use of medications Abdominal pain 1 Occurrences starting 06/28/2021 until 06/28/2022 documented as of this encounter Procedures Procedure Name Priority Date/Time Associated Diagnosis Comments REFLEXIVE URINE CULTURE Routine 06/28/2021 10:51 AM HOOP PUNCH AND COILER OPERATOR HELPER URINALYSIS AND REFLEX TO MICROSCOPIC AND CULTURE Routine 06/28/2021 10:51 AM HOOP PUNCH AND COILER OPERATOR HELPER CBC WITH AUTO DIFFERENTIAL Routine 06/28/2021 10:51 AM HOOP PUNCH AND COILER OPERATOR HELPER Psoriatic arthritis ([facility]) ([facility]) Encounter for long-term (current) use of medications ERYTHROCYTE SEDIMENTATION RATE Routine 06/28/2021 10:51 AM HOOP PUNCH AND COILER OPERATOR HELPER Psoriatic arthritis (CMS/HCC) (HCC) Encounter for long-term (current) use of medications URINE CULTURE Routine 06/28/2021 10:51 AM HOOP PUNCH AND COILER OPERATOR HELPER CRP (ACUTE PHASE) Routine 06/28/2021 10: 51 AM HOOP PUNCH AND COILER OPERATOR HELPER Psoriatic arthritis (CMS/HCC) (HCC) Encounter for long-term (current) use of medications LIPASE Routine 06/28/2021 10:51 AM HOOP PUNCH AND COILER OPERATOR HELPER AMYLASE Routine 06/28/2021 10:51 AM HOOP PUNCH AND COILER OPERATOR HELPER COMPREHENSIVE METABOLIC PANEL Routine 06/28/2021 10:51 AM HOOP PUNCH AND COILER OPERATOR HELPER Psoriatic arthritis (CMS/HCC) (HCC) Encounter for long-term (current) use of medications documented in this encounter Results * Urine culture (06/28/2021 10:51 AM HOOP PUNCH AND COILER OPERATOR HELPER) Urine culture [facility] Comment: ??CULTURE, URINE, ROUTINE ?Micro Number: ?[id number] ??Test Status: ? Final ??Specimen Source: ?? Urine ??Specimen Quality: ??Adequate ??Result: ?No Growth 06/28/2021 10:5 1 AM HOOP PUNCH AND COILER OPERATOR HELPER 06/28/2021 10:53 AM HOOP PUNCH AND COILER OPERATOR HELPER Miriam [facility] MICROBIOLOGY - GENERAL ORDERABLES Final Result [facility] [address] [place] [address] * (ABNORMAL) Lipase (06/28/2021 10:51 AM HOOP PUNCH AND COILER OPERATOR HELPER) LIPASE 135(H) 7 - 60 U/L [facility] 06/28/2021 10:5 1 AM HOOP PUNCH AND COILER OPERATOR HELPER 06/28/2021 10:53 AM HOOP PUNCH AND COILER OPERATOR HELPER Miriam VALLE LAB BLOOD ORDERAB LES Final Result Performing Organization Address [facility] [[email or web address]] de Phone Number [facility] [address] [place] [address] * Amylase (06/28/2021 10:51 AM HOOP PUNCH AND COILER OPERATOR HELPER) Amylase 90 21 - 101 U/L [facility] 06/28/2021 10:5 1 AM HOOP PUNCH AND COILER OPERATOR HELPER 06/28/2021 10:53 AM HOOP PUNCH AND COILER OPERATOR HELPER Miriam VALLE LAB BLOOD ORDERAB LES Final Result Performing Organization Address [facility] Phone Number [facility] [address] [place] [address] * REFLEXIVE URINE CULTURE (06/28/2021 10:51 AM HOOP PUNCH AND COILER OPERATOR HELPER) Pathologist [facility] Urine culture [facility] Comment:CULTURE INDICATED - RESULTS TO FOLLOW 06/28/2021 10:5 1 AM HOOP PUNCH AND COILER OPERATOR HELPER 06/28/2021 10:53 AM HOOP PUNCH AND COILER OPERATOR HELPER Miriam [facility] MICROBIOLOGY - GENERAL ORDERABLES Final Result Performing Organization Address [facility] [[email or web address]] de Phone Number [facility] [address] [place] [address] * (ABNORMAL) Urinalysis reflex to microscopic and culture (06/28/2021 10:51 AM HOOP PUNCH AND COILER OPERATOR HELPER) Color, ur YELLOW YELLOW [facility] Appearance, ur CLOUDY(A) CLEAR [facility] Specific gravity 1.021 1.001 - 1.035 [facility] pH, ur 6.0 5.0 - 8.0 [facility] Glucose, ur NEGATIVE NEGATIVE [facility] Bilirubin, ur NEGATIVE NEGATIVE [facility] Ketones, ur TRACE(A) NEGATIVE [facility] Blood, ur NEGATIVE NEGATIVE [facility] Protein, ur, quant TRACE(A) NEGATIVE [facility] Nitrites, ur NEGATIVE NEGATIVE [facility] Leukocyte esterase, ur 1+(A) NEGATIVE [facility] WBC, ur 0-5 < OR = 5 /HPF [facility] RBC, ur 0-2 < OR = 2 /HPF [facility] Epithelial cells, squamous, ur 6-10(A) < OR = 5 /HPF [facility] Bacteria, ur, quant FEW(A) NONE SEEN /HPF [facility] Hyaline cast NONE SEEN NONE SEEN /LPF [facility] 06/28/2021 10:5 1 AM HOOP PUNCH AND COILER OPERATOR HELPER 06/28/2021 10:53 AM HOOP PUNCH AND COILER OPERATOR HELPER Miriam [facility] MICROBIOLOGY - GENERAL ORDERABLES Final Result Performing Organization Address [facility] Co de Phone Number [facility] [address] [place] [address] * Erythrocyte sedimentation rate (06/28/2021 10:51 AM HOOP PUNCH AND COILER OPERATOR HELPER) Erythrocyte sedimentation rate 5 < OR = 20 mm/h [facility] Blood specimen (specimen) 06/28/2021 10:51 AM HOOP PUNCH AND COILER OPERATOR HELPER 06/28/2021 10:53 AM HOOP PUNCH AND COILER OPERATOR HELPER Result [facility] Miriam VALLE LAB BLOOD ORDERAB LES Final Result Performing Organization Address [facility] Co de Phone Number [facility] [address] [place] [address] * CRP (acute phase) (06/28/2021 10:51 AM HOOP PUNCH AND COILER OPERATOR HELPER) C-RP 5.7 <8.0 mg/L [facility] Blood specimen (specimen) 06/28/2021 10:51 AM HOOP PUNCH AND COILER OPERATOR HELPER 06/28/2021 10:53 AM HOOP PUNCH AND COILER OPERATOR HELPER Miriam [facility]LE LAB BLOOD ORDERAB LES Final Result [facility] [address] [place] [address] * Comprehensive metabolic panel (06/28/2021 10:51 AM HOOP PUNCH AND COILER OPERATOR HELPER) Glucose 87 65 - 99 mg/dL [facility] Comment: ? Fasting reference interval BUN 10 7 - 25 mg/dL [facility] Creatinine 0.88 0.50 - 1.10 mg/dL [facility] eGFR NON-AFR. PARAGUAYAN 78 > OR = 60 mL/min/1. 73m2 [facility] EGFR 91 > OR = 60 mL/min/1. 73m2 [facility] BUN/creat ratio NOT APPLICABLE 6 - 22 (calc) [facility] Sodium 139 135 - 146 mmol/L [facility] Potassium, pl 3.7 3.5 - 5.3 mmol/L [facility] Chloride 106 98 - 110 mmol/L [facility] CO2 24 20 - 32 mmol/L [facility] Calcium 9.0 8.6 - 10.2 mg/dL [facility] Protein, sr 7.0 6.1 - 8.1 g/dL [facility] Albumin 4.4 3.6 - 5.1 g/dL [facility] GLOBULIN 2.6 1.9 - 3.7 g/dL (calc) [facility] Alb/glob ratio 1.7 1.0 - 2.5 (calc) [facility] Bilirubin, total 0.3 0.2 - 1.2 mg/dL [facility] Alk phos 80 31 - 125 U/L [facility] AST 13 10 - 35 U/L [facility] ALT (SGPT) 18 6 - 29 U/L [facility] Blood specimen (specimen) 06/28/2021 10:51 AM HOOP PUNCH AND COILER OPERATOR HELPER 06/28/2021 10:53 AM HOOP PUNCH AND COILER OPERATOR HELPER Miriam VALLE LAB BLOOD ORDERAB LES Final Result [facility] [address] [address] [facility] [place], [place] [address] * (ABNORMAL) CBC with auto differential (06/28/2021 10:51 AM HOOP PUNCH AND COILER OPERATOR HELPER) [facility] WBC 5.8 3.8 - 10.8 Thousand/u L [facility] RBC, POC 5.15(H) 3.80 - 5.10 Million/uL [facility] Hgb 14.5 11.7 - 15.5 g/dL [facility] Hct 44.6 35.0 - 45.0 % [facility] MCV 86.6 80.0 - 100.0 fL [facility] MCH 28.2 27.0 - 33.0 pg [facility] MCHC 32.5 32.0 - 36.0 g/dL [facility] Rdw 14.3 11.0 - 15.0 % [facility] Platelets 300 140 - 400 Thousand/u L [facility] MPV 9.7 7.5 - 12.5 fL [facility] Neutrophils, abs 3,764 1,500 - 7,800 cells/uL [facility] Lymphocytes, abs 1,409 850 - 3,900 cells/uL [facility] Monocyte abs 423 200 - 950 cells/uL [facility] Eosinophils, abs 81 15 - 500 cells/uL [facility] Basophils, abs 122 0 - 200 cells/uL [facility] Neutrophils 64.9 % [facility] Lymphocyte pct 24.3 % [facility] Monocytes 7.3 % [facility] Eosinophils 1.4 % [facility] Basophils 2.1 % [facility] Blood specimen (specimen) 06/28/2021 10:51 AM HOOP PUNCH AND COILER OPERATOR HELPER 06/28/2021 10:53 AM HOOP PUNCH AND COILER OPERATOR HELPER Miriam VALLE LAB BLOOD ORDERAB LES Final Result [facility] [address] [place] [address] documented in this encounter Visit Diagnoses Diagnosis Psoriatic arthritis (HCC)- Primary Psoriatic arthropathy Encounter for long-term (current) use of medications Encounter for long-term (current) use of other medications Abdominal pain Abdominal pain, unspecified site documented in this encounter Care Teams Cycle Counter Relationship Specialty Start Date End Date Bhupinder Tobias MD [address] [place] [address] PCP - General Internal Medicine 06/03/20 Cash Woodruff III, MD [address] [facility] [address] [place] [address] Rheumatology 04/12/17 Jorge Aguiar MD [address] [facility] [address] [place] [address] Consulting Physician Urology 11/10/20 Khoa Arias MD [address] [facility] [address] [place] [address] Referring Physician Gastroenterology 03/20/21 documented as of this encounter
--- OUTSIDE RECORDS SUMMARY | 2024-04-29 19:23 | XMS_ITS | Encounter Summary ---
Author Organization [facility] Address [address] [place] [address] Phone Care Team Providers Care Relay Engineer Name Role Phone Isaiah Quiros MD Unavailable Isaiah Quiros MD Primary Care Provider [phone] Kumar CARRILLO MD, Cash Howard Unavailable [phone] Alex Mahajan MD Unavailable Reason for Visit * Reason Comments Rheumatoid Arthritis Encounter Details Date Type Department Care Team (Late st Contact Info) Description 03/25/2020 1:15 PM COTTON BALL MACHINE TENDER Office Visit [facility] [address] [place] [address] Miriam Frye PA [address] [place] [address] Psoriatic arthritis (CMS/HCC) (Primary Dx); Osteoporosis without current pathological fracture, unspecified osteoporosis type; Encounter for long-term (current) use of medications; Meredith-Danlos disease; Bilateral kidney stones Social History Tobacco Use Types Packs/Day Years Used Date Smoking Tobacco: Never Alcohol Use Standard Drinks/Week Comments No 0 (1 standard drink = 0.6 oz pur e alcohol) Comments No Sex and Gender Information Value Date Recorded Sex Assigned at Not on file Legal Sex Female 9:24 PM COTTON BALL MACHINE TENDER Gender Identity Female 08/14/2022 11:32 AM CDT Sexual Orientation Straight 02/13/2023 7: 01 AM CDT documented as of this encounter Last Filed Vital Signs Vital Sign Reading Time Taken Comments Blood Pressure 136/80 03/25/2020 2:03 PM COTTON BALL MACHINE TENDER Pulse - - Temperature 36.4 ??C (97.5 ??F) 03/25/2020 2:03 PM CS T Respiratory Rate - - Oxygen Saturation - - Inhaled Oxygen Concentration - - Weight 101.2 kg (223 lb) 03/25/2020 2:03 PM COTTON BALL MACHINE TENDER Height 167.6 cm (5' 6 ) 03/25/2020 2:03 PM COTTON BALL MACHINE TENDER Body Mass Index 35.99 03/25/2020 2:03 PM COTTON BALL MACHINE TENDER documented in this encounter Patient Instructions * Patient Instructions* Miriam Frye PA - 03/25/2020 1:15 PM COTTON BALL MACHINE TENDER Patient Education Secukinumab (By injection) Secukinumab ([id number]) Treats plaque psoriasis, psoriatic arthritis, and ankylosing spondylitis. Brand Name(s): Cosentyx There may be other brand names for this medicine. When This Medicine Should Not Be Used: This medicine is not right for everyone. Do not use it if you had an allergic reaction to secukinumab. How to Use This Medicine: Injectable ?? Your doctor will prescribe your exact dose and tell you how often it should be given. This medicine is given as a shot under your skin. This medicine is usually given in the upper arms, abdomen, or thighs. ?? A nurse or other health provider will give you this medicine. ?? You may be taught how to give your medicine at home. Make sure you understand all instructions before giving yourself an injection. Do not use more medicine or use it more often than your doctor tells you to. ?? Do not use the medicine if it is cloudy, discolored, or has particles in it. Do not shake the medicine. ?? You will be shown the body areas where this shot can be given. Use a different body area each time you give yourself a shot. Keep track of where you give each shot to make sure you rotate body areas. ?? Use a new needle and syringe each time you inject your medicine. ?? Throw away used needles in a hard, closed container that the needles cannot poke through. Keep this container away from children and pets. ?? This medicine should come with a Medication Guide. Ask your pharmacist for a copy if you do not have one. ?? Missed dose: Call your doctor or pharmacist for instructions. ?? If you store this medicine at home, keep it in the refrigerator. Do not freeze. Keep the medicine in the original carton until you are ready to use it. Use the medicine within 1 hour after you take it out of the refrigerator. Drugs and Foods to Avoid: Ask your doctor or pharmacist before using any other medicine, including [id number] medicines, vitamins, and herbal products. ?? Some medicines can affect how secukinumab works. Tell your doctor if you are using cyclosporine or warfarin. ?? This medicine may interfere with vaccines. Ask your doctor before you get a flu shot or any other vaccines. You should not receive live vaccines while you are using this medicine. Warnings While Using This Medicine: ?? Tell your doctor if you are or , or if you have inflammatory bowel disease(including Crohn disease or ulcerative colitis) or an allergy to latex. ?? This medicine may cause you to get infections more easily. Tell your doctor if you have any typeof infection before you start treatment. Also tell your doctor if you or a family member has a history of tuberculosis (TB). Take precautions to avoid illness. Wash your hands often. ?? This medicine may cause new or worsening inflammatory bowel disease. ?? Your doctor will check your progress and the effects of this medicine at regular visits. Keep all appointments. ?? Keep all medicine [...] or throat, chest tightness, trouble breathing ?? Burning feeling when you urinate, change in how much or how often you urinate ?? Fever, chills, cough, sore throat, body aches ?? Severe stomach pain, severe diarrhea If you notice these less serious side effects, talk with your doctor: ?? Runny or stuffy nose If you notice other side effects that you think are caused by this medicine, tell your doctor. Call your doctor for medical advice about side effects. You may report side effects to FDA at 4-354-TQC-4101 ?? 2017 [employer] Information is for End User's use only and may not be sold, redistributed or otherwise used for commercial purposes. The above information is an travelers' aid worker only. It is not intended as medical advice for individual conditions or treatments. Talk to your doctor, nurse or pharmacist before following any medical regimen to see if it is safe and effective for you. ON BALL MACHINE TENDER documented in this encounter Progress Notes * Miriam Frye PA - 03/25/2020 1:15 PM CST Images from the original note were not included. Subjective/Objective Patient ID: Madalyn Smith is a 44 y.o. female. Chief Complaint Joint pain HPI Under a lot of stress. Her dad just from bone cancer. Her son dx with seizures althoughhe has not had any in past month. Hands are hurting. Steroid inj at last visit helped for only 1 week. No se from imuran. Does not think that [employer] is working. Her father had hx of psoriasis. No sob, cp, rashes, oral or nose ulcers. No infections. Had over 14 kidney stones in ast 5 yrs, last oneswere uric acid. No bouts of intense joint pain/swelling/erythema. Review of Systems Constitutional: Negative for fatigue [...] and dry. Psychiatric: Normal mood. Vitals reviewed. There is currently no information documented on the homunculus. Go to the Rheumatology activity andcomplete the homunculus joint exam. CDAI: Labs Lab Results Component Value Date WBC 9.8 02/19/2020 HGB 14.0 02/19/2020 HCT 43.7 02/19/2020 MCV 89.9 02/19/2020 Lab Results Component Value Date GLUCOSE 95 02/19/2020 CALCIUM 9.1 02/19/2020 SODIUM 137 02/19/2020 POTASSIUM 4.2 02/19/2020 CO2 22 02/19/2020 CHLORIDE 104 02/19/2020 BUNSER 17 02/19/2020 CREATININE 0.95 02/19/2020 Lab Results Component Value Date ALT 13 02/19/2020 AST 12 02/19/2020 ALKPHOS 63 02/19/2020 BILITOT 0.2 02/19/2020 Lab Results Component Value Date SEDRATE 5 02/19/2020 Lab Results Component Value Date CRP 2.6 02/19/2020 Assessment/Plan Diagnoses and all orders for this visit: Psoriatic arthritis (CMS/[facility]) (Primary) Assessment & Plan: On orencia sq again and imuran to 100mg bid but she is failing orencia. Her father had hx of psoriasis so will change her diagnosis from seronegative RA to Psoriatic arthritis. Seen with Dr Heath today. To get 1st inj in the office. Discussed risks and se of cosentyx. Past serologies: [facility] panel 08/2019---labs reveal positive anti-CUPOLA TAPPER antibody which is likely a false positive due tonegative ASHLEY. ?? RF neg but has a possible family hx of psoriatic arthritis (father) so if she develops psoriasis diagnosis will change to psoriatic arthritis. Rt hand US 09/2019 showed: ?? Osteoporosis without current pathological fracture, unspecified osteoporosis [...] Assessment & Plan: Quant gold neg 12/2019 HLA B27 negative 12/2019 TPMT nl 17 Weight loss with imuran, stopped it 01/2017 Mtx stopped due to side effects 2016 Failed humira Plaquenil failure Failed Orencia Imuran caused weight loss 2016, TPMT wnl at 17 in 2016 Hep B and C neg 2015 and 01/2020 HLA B27 neg 12/2019 Failed Enbrel and humira TPMT wnl 06/2016 BDS done by pcp 2018 and it showed osteoporosis [facility] 08/2019---[facility] labs reveal positive anti-CUPOLA TAPPER antibody which is likely a false positive due tonegative ASHLEY. Her father had psoriasis, pt changed from ra to PsA on 03/25/2020. ?? Orders: - Urinalysis reflex to microscopic and culture Urine, bladder; Future - Protein / creatinine ratio, urine, random; Future - Comprehensive metabolic panel; Future - CRP (acute phase); Future - CBC with auto differential; Future - Anti-double stranded DNA antibodies; Future - C4 complement; Future - C3 complement; Future - Erythrocyte sedimentation rate; Future Meredith-Danlos disease Assessment & Plan: Was advised in past to get chest CT to r/o aortic aneurysm, to discuss with pcp. Bilateral kidney stones - Uric acid; Future Cosigned by Cash Heath III, MD at 03/25/2020 4:45 PM COTTON BALL MACHINE TENDER ON BALL MACHINE TENDER ON BALL MACHINE TENDER documented in this encounter Miscellaneous Notes * Assessment & Plan Note - Miriam Frye PA - 03/25/2020 8:34 AM CSTAssociated Problem(s): Psoriatic arthritis (HCC) Images from the original note were not included. On orencia sq again and imuran to 100mg bid but she is failing orencia. Her father had hx of psoriasis so will change her diagnosis from seronegative RA to Psoriatic arthritis. Seen with Dr Heath today. To get 1st inj in the office. Discussed risks and se of cosentyx. Past serologies: [facility] panel 08/2019---labs reveal positive anti-CUPOLA TAPPER antibody which is likely a false positive due tonegative ASHLEY. ?? RF neg but has a possible family hx of psoriatic arthritis (father) so if she develops psoriasis diagnosis will change to psoriatic arthritis. Rt hand US 09/2019 showed: ?? ON BALL MACHINE TENDER ON BALL MACHINE TENDER * Assessment & Plan Note - Miriam Frye PA - 03/25/2020 8:34 AM CSTAssociated Problem(s): Osteoporosis without current pathological fracture bds checked by pcp in past, is taking ca and vit d and pcp checked vit D and PTH per pt was wnl. Her pcp started her on alendronate 70mg po qweek. Taking ca + vit d 1200mg qd. ON BALL MACHINE TENDER * Assessment & Plan Note - Miriam Frye PA - 03/25/2020 8:33 AM CSTAssociated Problem(s): Encounter for long-term (current) use of medications Quant gold neg 12/2019 HLA B27 negative 12/2019 TPMT nl 17 Weight loss with imuran, stopped it 01/2017 Mtx stopped due to side effects 2016 Failed humira Plaquenil failure Failed Orencia Imuran caused weight loss 2016, TPMT wnl at 17 in 2016 Hep B and C neg 2015 and 01/2020 HLA B27 neg 12/2019 Failed Enbrel and humira TPMT wnl 06/2016 BDS done by pcp 2018 and it showed osteoporosis [facility] 08/2019---[facility] labs reveal positive anti-CUPOLA TAPPER antibody which is likely a false positive due tonegative ASHLEY. Her father had psoriasis, pt changed from ra to PsA on 03/25/2020. ?? ON BALL MACHINE TENDER ON BALL MACHINE TENDER ON BALL MACHINE TENDER ON BALL MACHINE TENDER * Assessment & Plan Note - Miriam Frye PA - 03/25/2020 8:33 AM CSTAssociated Problem(s): Meredith-Danlos disease Was advised in past to get chest CT to r/o aortic aneurysm, to discuss with pcp. ON BALL MACHINE TENDER documented in this encounter Plan of Treatment Scheduled Orders Name Type Priority Associated Diagnoses Orde r Schedule C4 complement Lab Routine Encounter for long-term (current) use of medications Expected: 03/25/2020, Expires: 03/25/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 Lab Routine Encounter for long-term (current) use of medications Expected: 03/25/2020, Expires: 03/25/2021 Uric acid Lab Routine Bilateral kidney stones 1 Occurrences starting 03/25/2020 until 03/25/2021 documented as of this encounter Procedures Procedure Name Priority Date/Time Associated Diagnosis Comments C4 COMPLEMENT Routine 03/25/2020 2:01 PM COTTON BALL MACHINE TENDER ANTI-DOUBLE STRANDED DNA ANTIBODIES Routine 03/25/2020 2:01 PM COTTON BALL MACHINE TENDER Encounter for long-term (current) use of medications URINALYSIS AND REFLEX TO MICROSCOPIC AND CULTURE Routine 03/25/2020 2:01 PM COTTON BALL MACHINE TENDER Encounter for long-term (current) use of medications CBC WITH AUTO DIFFERENTIAL Routine 03/25/2020 2:01 PM COTTON BALL MACHINE TENDER Encounter for long-term (current) use of medications PROTEIN / CREATININE RATIO, URINE, RANDOM Routine 03/25/2020 2:01 PM COTTON BALL MACHINE TENDER Encounter for long-term (current) use of medications ERYTHROCYTE SEDIMENTATION RATE Routine 03/25/2020 2:01 PM COTTON BALL MACHINE TENDER Encounter for long-term (current) use of medications C3 COMPLEMENT Routine 03/25/2020 2:01 PM COTTON BALL MACHINE TENDER CRP (ACUTE PHASE) Routine 03/25/2020 2:0 1 PM COTTON BALL MACHINE TENDER Encounter for long-term (current) use of medications URIC ACID Routine 03/25/2020 2:01 PM COTTON BALL MACHINE TENDER COMPREHENSIVE METABOLIC PANEL Routine 03/25/2020 2:01 PM COTTON BALL MACHINE TENDER Encounter for long-term (current) use of medications documented in this encounter Results * C4 complement (03/25/2020 2:01 PM COTTON BALL MACHINE TENDER) Complement component C4C 31 15 - 57 mg/dL [facility] 03/25/2020 2:01 PM COTTON BALL MACHINE TENDER 03/25/2020 2:03 PM COTTON BALL MACHINE TENDER Miriam VALLE LAB BLOOD ORDERAB LES Final Result Performing Organization Address [facility] Co de Phone Number [facility] [address] [place] [address] * C3 complement (03/25/2020 2:01 PM COTTON BALL MACHINE TENDER) Complement component C3C 144 83 - 193 mg/dL [facility] 03/25/2020 2:01 PM COTTON BALL MACHINE TENDER 03/25/2020 2:03 PM COTTON BALL MACHINE TENDER Miriam VALLE LAB BLOOD ORDERAB LES Final Result Performing Organization Address City/[facility] Co de Phone Number QUEST [facility] [address] [place] [address] * Uric acid (03/25/2020 2:01 PM COTTON BALL MACHINE TENDER) Uric acid 3.3 2.5 - 7.0 mg/dL [facility] Comment: Therapeutic target for gout patients: <6.0 mg/dL ?? 03/25/2020 2:01 PM COTTON BALL MACHINE TENDER 03/25/2020 2:03 PM COTTON BALL MACHINE TENDER us Miriam VALLE LAB BLOOD ORDERAB LES Final Result Performing Organization Address [facility] de Phone Number [facility] [address] [address] [facility] [place] [address] * Erythrocyte sedimentation rate (03/25/2020 2:01 PM COTTON BALL MACHINE TENDER) Pathologist [facility] Erythrocyte sedimentation rate 6 < OR = 20 mm/h [facility] Blood specimen (specimen) 03/25/2020 2:01 PM COTTON BALL MACHINE TENDER 03/25/2020 2:03 PM COTTON BALL MACHINE TENDER Miriam VALLE LAB BLOOD ORDERAB LES Final Result Performing Organization Address [facility] de Phone Number [facility] [address] [address] [facility] [place] [address] * Anti-double stranded DNA antibodies (03/25/2020 2:01 PM COTTON BALL MACHINE TENDER) Pathologist [facility] DNA (DS) ab <1 IU/mL [facility] Comment: ? IU/mL ? Interpretation ? < or = 4 ?Negative ? 5-9 ? Indeterminate ? > or = 10 ?? Positive Blood specimen (specimen) 03/25/2020 2:01 PM COTTON BALL MACHINE TENDER 03/25/2020 2:03 PM COTTON BALL MACHINE TENDER Miriam VALLE LAB BLOOD ORDERAB LES Final Result Performing Organization Address [facility] de Phone Number [facility] [address] [address] [facility] [place] [address] * CBC with auto differential (03/25/2020 2:01 PM COTTON BALL MACHINE TENDER) Pathologist [facility] WBC 7.7 3.8 - 10.8 Thousand/u L [facility] RBC, POC 4.70 3.80 - 5.10 Million/uL [facility] Hgb 13.7 11.7 - 15.5 g/dL [facility] Hct 41.6 35.0 - 45.0 % [facility] MCV 88.5 80.0 - 100.0 fL [facility] MCH 29.1 27.0 - 33.0 pg [facility] MCHC 32.9 32.0 - 36.0 g/dL [facility] Rdw 14.8 11.0 - 15.0 % [facility] Platelets 310 140 - 400 Thousand/u L [facility] MPV 9.9 7.5 - 12.5 fL [facility] Neutrophils, abs 5,190 1,500 - 7,800 cells/uL [facility] Lymphocytes, abs 1,856 850 - 3,900 cells/uL [facility] Monocyte abs 424 200 - 950 cells/uL [facility] Eosinophils, abs 131 15 - 500 cells/uL [facility] Basophils, abs 100 0 - 200 cells/uL [facility] Neutrophils 67.4 % [facility] Lymphocyte pct 24.1 % [facility] Monocytes 5.5 % [facility] Eosinophils 1.7 % [facility] Basophils 1.3 % [facility] Blood specimen (specimen) 03/25/2020 2:01 PM COTTON BALL MACHINE TENDER 03/25/2020 2:03 PM COTTON BALL MACHINE TENDER us Miriam VALLE LAB BLOOD ORDERAB LES Final Result [facility] [address] [place] [address] * CRP (acute phase) (03/25/2020 2:01 PM COTTON BALL MACHINE TENDER) Pathologist [facility] C-RP 7.9 <8.0 mg/L [facility] Blood specimen (specimen) 03/25/2020 2:01 PM COTTON BALL MACHINE TENDER 03/25/2020 2:03 PM COTTON BALL MACHINE TENDER us Miriam VALLE LAB BLOOD ORDERAB LES Final Result [facility] [address] [address] [place] [address] * Comprehensive metabolic panel (03/25/2020 2:01 PM COTTON BALL MACHINE TENDER) Glucose 86 65 - 99 mg/dL [facility] Comment: ? Fasting reference interval BUN 11 7 - 25 mg/dL [facility] Creatinine 0.94 0.50 - 1.10 mg/dL [facility] eGFR NON-AFR. ESTONIAN 73 > OR = 60 mL/min/1. 73m2 [facility] EGFR 85 > OR = 60 mL/min/1. 73m2 [facility] [place] [facility] BUN/creat ratio NOT APPLICABLE 6 - 22 (calc) [facility] Sodium 137 135 - 146 mmol/L [facility] Potassium, pl 4.3 3.5 - 5.3 mmol/L [facility] Chloride 106 98 - 110 mmol/L [facility] CO2 21 20 - 32 mmol/L [facility] Calcium 8.9 8.6 - 10.2 mg/dL [facility] Protein, sr 6.6 6.1 - 8.1 g/dL [facility] Albumin 4.1 3.6 - 5.1 g/dL [facility] GLOBULIN 2.5 1.9 - 3.7 g/dL (calc) [facility] Alb/glob ratio 1.6 1.0 - 2.5 (calc) [facility] Bilirubin, total 0.3 0.2 - 1.2 mg/dL [facility] Alk phos 65 31 - 125 U/L [facility] AST 12 10 - 35 U/L [facility] ALT (SGPT) 13 6 - 29 U/L [facility] Blood specimen (specimen) 03/25/2020 2:01 PM COTTON BALL MACHINE TENDER 03/25/2020 2:03 PM COTTON BALL MACHINE TENDER Miriam VALLE LAB BLOOD ORDERAB LES Final Result Performing Organization Address [facility] de Phone Number [facility] [address] [place] [address] * (ABNORMAL) Protein / creatinine ratio, urine, random (03/25/2020 2:01 PM COTTON BALL MACHINE TENDER) Creatinine, ur 25 20 - 275 mg/dL [facility] Protein/creatin ine ratio NOTE 21 - 161 mg/g creat [facility] Comment: THE PROTEIN VALUE IS LESS THAN 4 MG/DL THEREFORE WE ARE UNABLE TO CALCULATE EXCRETION AND/OR CREATININE RATIO. ?? Protein/Creatin ine Ratio NOTE 0.021 - 0.161 mg/mg creat [facility] Protein, ur, quant <4(L) 5 - 24 mg/dL [facility] Comment: Verified by repeat analysis. Urine 03/25/2020 2:01 PM COTTON BALL MACHINE TENDER 03/25/2020 2:03 PM COTTON BALL MACHINE TENDER Miriam VALLE LAB URINE ORDERAB LES Final Result Performing Organization Address [facility] de Phone Number [facility] [address] [place] [address] * Urinalysis reflex to microscopic and culture Urine, bladder (03/25/2020 2:01 PM COTTON BALL MACHINE TENDER) Color, ur YELLOW YELLOW [facility] Appearance, ur CLEAR CLEAR [facility] Specific gravity 1.004 1.001 - 1.035 [facility] pH, ur 6.5 5.0 - 8.0 [facility] Glucose, ur NEGATIVE NEGATIVE [facility] Bilirubin, ur NEGATIVE NEGATIVE [facility] Ketones, ur NEGATIVE NEGATIVE [facility] Blood, ur NEGATIVE NEGATIVE [facility] Protein, ur, quant NEGATIVE NEGATIVE [facility] Nitrites, ur NEGATIVE NEGATIVE [facility] Leukocyte esterase, ur NEGATIVE NEGATIVE [facility] WBC, ur NONE SEEN < OR = 5 /HPF [facility] RBC, ur NONE SEEN < OR = 2 /HPF [facility] Epithelial cells, squamous, ur NONE SEEN < OR = 5 /HPF [facility] Bacteria, ur, quant NONE SEEN NONE SEEN /HPF [facility] Hyaline cast NONE SEEN NONE SEEN /LPF [facility] Urine culture [facility] Comment:NO CULTURE INDICATED Urine, bladder 03/25/2020 2: 01 PM COTTON BALL MACHINE TENDER 03/25/2020 2:03 PM COTTON BALL MACHINE TENDER us Miriam VALLE LAB MICROBIOLOGY - GENERAL ORDERABLES Final Result Performing Organization Address City/State/[facility] Co de Phone Number [facility] [address] [place] [address] documented in this encounter Visit Diagnoses Diagnosis Psoriatic arthritis (HCC)- Primary Psoriatic arthropathy Osteoporosis without current pathological fracture, unspecified osteoporosis type Encounter for long-term (current) use of medications Encounter for long-term (current) use of other medications Meredith-Danlos disease Meredith-Danlos syndrome Bilateral kidney stones documented in this encounter Care Teams Relay Engineer Relationship Specialty Start Date End Date Isaiah Quiros MD [address] [place] [address] PCP - General Internal Medicine 04/01/17 06/02/20 Isaiah Quiros MD [address] [place] [address] Internal Medicine 02/18/17 03/19/21 Cash Heath III, MD [address] [facility] [address] [address] Rheumatology 04/12/17 Alex Mahajan MD [address] [facility] [address] [place] [address] Referring Physician Internal Medicine 05/07/19 1 documented as of this encounter
--- OUTSIDE RECORDS SUMMARY | 2024-04-29 19:23 | XMS_ITS | Encounter Summary ---
Author Organization [facility] Address [address] [place] [phone] Phone Care Team Providers Care Grant Writer Name Role Phone Kumar CARRILLO MD, Cash Howard Unavailable [phone] Bhupinder Tobias MD Primary Care Provider [phone] Jorge Aguiar MD Unavailable [phone] Khoa Arias MD Unavailable Encounter Details Date Type Department Care Team (Late st Contact Info) Description 05/05/2021 9:00 AM EDITORIAL DIRECTOR Office Visit [facility] [address] [place] [phone] Ghazala Ulloa PA [address] [place] [phone] Psoriatic arthritis (CMS/HCC) (HCC) (Primary Dx); Encounter for long-term (current) use of medications; Osteoporosis without current pathological fracture, unspecified osteoporosis type; Abdominal pain Social History Tobacco Use Types Packs/Day Years Used Date Smoking Tobacco: Never Alcohol Use Standard Drinks/Week Comments No 0 (1 standard drink = 0.6 oz pur e alcohol) Comments No Sex and Gender Information Value Date Recorded Sex Assigned at Not on file Legal Sex Female 9:24 PM EDITORIAL DIRECTOR Gender Identity Female 08/14/2022 11:32 AM CDT Sexual Orientation Straight 02/13/2023 7: 01 AM CDT documented as of this encounter Last Filed Vital Signs Vital Sign Reading Time Taken Comments Blood Pressure - - Pulse - - Temperature 36.5 ??C (97.7 ??F) 05/05/2021 8:59 AM CS T Respiratory Rate - - Oxygen Saturation - - Inhaled Oxygen Concentration - - Weight 89.2 kg (196 lb 9.6 oz) 05/05/2021 8:59 A M EDITORIAL DIRECTOR Height - - Body Mass Index 31.73 06/03/2020 3:14 PM EDITORIAL DIRECTOR documented in this encounter Patient Instructions * Patient Instructions* Ghazala Ulloa PA - 05/05/2021 9:00 AM EDITORIAL DIRECTOR Increase leflunomide to 20mg daily. If you have a lot of the 10mg tablets left, you can take 2 of these and use them up first. We also sent a prescription for the 20mg strength tablets to your pharmacy. ORIAL DIRECTOR documented in this encounter Ordered Prescriptions Prescription Sig Dispense Quantity Refills Last Filled Start Date End Date leflunomide (ARAVA) 20 mg tabletIndications: Psoriatic Arthritis Take 1 tablet (20 mg total) by mouth daily 90 tablet 1 05/05/2021 09/11/2021 documented in this encounter Progress Notes * Miriam Frye PA - 05/05/2021 9:00 AM CST Images from the original note were not included. Subjective/Objective Patient ID: Madalyn Smith is a 45 y.o. female. Chief Complaint RA HPI Recently passed kidney stone. Had CT at [facility] on 04/28/20 which showed small bilat calyceal stones, mild diverticulosis, and also development of mild mesenteric fat stranding surrounding small lymph nodes, possible mesenteric adenitis or panniculitis. C/o abd pain, bloating, constipation.Takes amitiza and a suppository to have BM. Her GI has ordered blood tests after the CT was done but hasn't gotten a response yet. Sees Dr. Arias. No fevers but has had chills. On leflunomide 10mg daily and IV Orencia. Thinks the leflunomide is helping ok so far. Is still c/o a lot of fatigue. Sleeping 10 hrs a day and still tired. Joint pain today 09/29, hands, knees, ankles, R shoulder, elbows, wrists. Denies cough, dyspnea, rashes Review of Systems Constitutional: positive for fatigue and chills. Negative for fever. HENT: Negative for mouth sores. Respiratory: Negative for cough, chest tightness and shortness of breath. GI: positive for pain, constipation, bloating Cardiovascular: Negative for chest pain. Skin: Negative [...] and dry. Psychiatric: Normal mood. Vitals reviewed. Vitals Temp 36.5 ??C (97.7 ??F) Wt 89.2 kg (196 lb 9.6 oz) BMI 31.73 kg/m?? CDAI: 39 Labs Lab Results Component Value Date WBC 6.5 03/31/2021 HGB 14.6 03/31/2021 HCT 44.9 03/31/2021 MCV 88.9 03/31/2021 Lab Results Component Value Date GLUCOSE 115 (H) 03/31/2021 CALCIUM 9.5 03/31/2021 SODIUM 135 03/31/2021 POTASSIUM 4.6 03/31/2021 CO2 21 03/31/2021 CHLORIDE 103 03/31/2021 BUNSER 17 03/31/2021 CREATININE 1.04 03/31/2021 Lab Results Component Value Date ALT 21 03/31/2021 AST 15 03/31/2021 ALKPHOS 91 03/31/2021 BILITOT 0.6 03/31/2021 Lab Results Component Value Date SEDRATE 8 03/31/2021 Lab Results Component Value Date CRP 3.9 03/31/2021 Assessment/Plan Diagnoses and all orders for this visit: Psoriatic arthritis (CMS/HCC) (HCC) (Primary) Assessment & Plan: On arava 10mg po daily and continues on IV Orencia. Will check labs and try going to 20mg of the leflunomide. Seen with dr woodruff today. Is following up with GI Dr. Arias regarding abd pain and constipation, and recent incidental findings of mesenteric fat stranding, possible adenitis or panniculitison abd CT (done for kidney stones). Past serologies: [facility] panel 08/2019---labs reveal positive anti-MILLING MACHINE SET UP OPERATOR antibody which is likely a false [...] showed osteoporosis [facility] 08/2019---[facility] labs reveal positive anti-MILLING MACHINE SET UP OPERATOR antibody which is likely a false [...] Taking ca + vit d 1200mg qd. Abdominal pain Assessment & Plan: Having abd pain, bloating, constipation. On meds for IBS and also using suppositories to have BM. Incidental findings of mesenteric fat stranding (adenitis or panniculitis) on abd CT. Awaiting further eval by Dr. Arias. Other orders - leflunomide (ARAVA) 20 mg tablet; Take 1 tablet (20 mg total) by mouth daily Seen by Ghazala Ulloa PA-C Cosigned by Cash Woodruff III, MD at 05/08/2021 4:32 PM EDITORIAL DIRECTOR ORIAL DIRECTOR ORIAL DIRECTOR documented in this encounter Miscellaneous Notes * Assessment & Plan Note - Ghazala Ulloa PA - 05/05/2021 10:12 PM EDITORIAL DIRECTOR Associated Problem(s): Abdominal pain Having abd pain, bloating, constipation. On meds for IBS and also using suppositories to have BM. Incidental findings of mesenteric fat stranding (adenitis or panniculitis) on abd CT. Awaiting further eval by Dr. Arias. ORIAL DIRECTOR * Assessment & Plan Note - Miriam Frye PA - 05/04/2021 8:19 AM CSTAssociated Problem(s): Psoriatic arthritis (HCC) Images from the original note were not included. On arava 10mg po daily and continues on IV Orencia. Will check labs and try going to 20mg of the leflunomide. Seen with dr woodruff today. Is following up with GI Dr. Arias regarding abd pain and constipation, and recent incidental findings of mesenteric fat stranding, possible adenitis or panniculitison abd CT (done for kidney stones). Past serologies: [facility] panel 08/2019---labs reveal positive anti-MILLING MACHINE SET UP OPERATOR antibody which is likely a false positive due tonegative ASHLEY. ?? RF neg but has a possible family hx of psoriatic arthritis (father) so if she develops psoriasis diagnosis will change to psoriatic arthritis. Rt hand US 09/2019 showed: ??F/u 1 month. ORIAL DIRECTOR ORIAL DIRECTOR * Assessment & Plan Note - Miriam Frye PA - 05/04/2021 8:19 AM CSTAssociated Problem(s): Osteoporosis without current pathological fracture bds checked by pcp in past, is taking ca and vit d and pcp checked vit D and PTH per pt was wnl. Her pcp started her on alendronate 70mg po qweek. Taking ca + vit d 1200mg qd. ORIAL DIRECTOR * Assessment & Plan Note - Miriam Frye PA - 05/04/2021 8:19 AM CSTAssociated Problem(s): Encounter for long-term (current) [...] showed osteoporosis [facility] 08/2019---[facility] labs reveal positive anti-MILLING MACHINE SET UP OPERATOR antibody which is likely a false positive due tonegative ASHLEY. Her father had psoriasis, pt changed from ra to PsA on 03/25/2020. ?? ORIAL DIRECTOR documented in this encounter Plan of Treatment Not on file documented as of this encounter Procedures Procedure Name Priority Date/Time Associated Diagnosis Comments CBC WITH AUTO DIFFERENTIAL Routine 05/05/2021 9:44 AM EDITORIAL DIRECTOR Psoriatic arthritis (CMS/HCC) ([facility]) Encounter for long-term (current) use of medications ERYTHROCYTE SEDIMENTATION RATE Routine 05/05/2021 9:44 AM EDITORIAL DIRECTOR Psoriatic arthritis ([facility]/HCC) ([facility]) Encounter for long-term (current) use of medications CRP (ACUTE PHASE) Routine 05/05/2021 9:4 4 AM EDITORIAL DIRECTOR Psoriatic arthritis ([facility]) ([facility]) Encounter for long-term (current) use of medications COMPREHENSIVE METABOLIC PANEL Routine 05/05/2021 9:44 AM EDITORIAL DIRECTOR Psoriatic arthritis ([facility]) ([facility]) Encounter for long-term (current) use of medications documented in this encounter Results * Erythrocyte sedimentation rate (05/05/2021 9:44 AM EDITORIAL DIRECTOR) Erythrocyte sedimentation rate 8 < OR = 20 mm/h [facility] Blood specimen (specimen) 05/05/2021 9:44 AM EDITORIAL DIRECTOR 05/05/2021 9:45 AM EDITORIAL DIRECTOR us Ghazala VALLE LAB BLOOD ORDERABLES Fin al Result [facility] [address] [place] [address] * CRP (acute phase) (05/05/2021 9:44 AM EDITORIAL DIRECTOR) C-RP 5.6 <8.0 mg/L [facility] Blood specimen (specimen) 05/05/2021 9:44 AM EDITORIAL DIRECTOR 05/05/2021 9:45 AM EDITORIAL DIRECTOR us Ghazala VALLE LAB BLOOD ORDERABLES Fin al Result [facility] [address] [place] [address] * Comprehensive metabolic panel (05/05/2021 9:44 AM EDITORIAL DIRECTOR) Glucose 90 65 - 99 mg/dL [facility] Comment: ? Fasting reference interval BUN 14 7 - 25 mg/dL [facility] Creatinine 1.08 0.50 - 1.10 mg/dL [facility] eGFR NON-AFR. FINNISH 62 > OR = 60 mL/min/1. 73m2 [facility] EGFR 71 > OR = 60 mL/min/1. 73m2 [facility] BUN/creat ratio NOT APPLICABLE 6 - 22 (calc) [facility] Sodium 136 135 - 146 mmol/L [facility] Potassium, pl 4.3 3.5 - 5.3 mmol/L [facility] Chloride 104 98 - 110 mmol/L [facility] CO2 25 20 - 32 mmol/L [facility] Calcium 9.3 8.6 - 10.2 mg/dL [facility] Protein, sr 6.7 6.1 - 8.1 g/dL [facility] Albumin 4.0 3.6 - 5.1 g/dL [facility] GLOBULIN 2.7 1.9 - 3.7 g/dL (calc) [facility] Alb/glob ratio 1.5 1.0 - 2.5 (calc) [facility] Bilirubin, total 0.3 0.2 - 1.2 mg/dL [facility] Alk phos 84 31 - 125 U/L [facility] AST 11 10 - 35 U/L [facility] ALT (SGPT) 14 6 - 29 U/L [facility] Blood specimen (specimen) 05/05/2021 9:44 AM EDITORIAL DIRECTOR 05/05/2021 9:45 AM EDITORIAL DIRECTOR Ghazala VALLE LAB BLOOD ORDERABLES Fin al Result [facility] [address] [place] [address] * CBC with auto differential (05/05/2021 9:44 AM EDITORIAL DIRECTOR) WBC 7.0 3.8 - 10.8 Thousand/u L [facility] RBC, POC 4.94 3.80 - 5.10 Million/uL [facility] Hgb 13.9 11.7 - 15.5 g/dL [facility] Hct 43.3 35.0 - 45.0 % [facility] MCV 87.7 80.0 - 100.0 fL [facility] MCH 28.1 27.0 - 33.0 pg [facility] MCHC 32.1 32.0 - 36.0 g/dL [facility] Rdw 13.2 11.0 - 15.0 % [facility] Platelets 305 140 - 400 Thousand/u L [facility] MPV 9.4 7.5 - 12.5 fL [facility] Neutrophils, abs 5,005 1,500 - 7,800 cells/uL [facility] Lymphocytes, abs 1,428 850 - 3,900 cells/uL [facility] Monocyte abs 427 200 - 950 cells/uL [facility] Eosinophils, abs 63 15 - 500 cells/uL [facility] Basophils, abs 77 0 - 200 cells/uL [facility] Neutrophils 71.5 % [facility] Lymphocyte pct 20.4 % [facility] Monocytes 6.1 % [facility] Eosinophils 0.9 % [facility] Basophils 1.1 % [facility] Blood specimen (specimen) 05/05/2021 9:44 AM EDITORIAL DIRECTOR 05/05/2021 9:45 AM EDITORIAL DIRECTOR Ghazala VALLE LAB BLOOD ORDERABLES Fin al Result [facility] [address] [place] [address] documented in this encounter Visit Diagnoses Diagnosis Psoriatic arthritis (HCC)- Primary Psoriatic arthropathy Encounter for long-term (current) use of medications Encounter for long-term (current) use of other medications Osteoporosis without current pathological fracture, unspecified osteoporosis type Abdominal pain Abdominal pain, unspecified site documented in this encounter Discontinued Medications Medication Sig Discontinue Reason Start Date End Da te azaTHIOprine (IMURAN) 50 mg tablet Take 2 tablets (100 mg total) by mouth 2 (two) times a day 01/20/2021 05/05/2021 predniSONE (DELTASONE) 5 mg tablet Take 2 tabs po every day x 7d, 1 tab po every day x 7d and 1/2 tab po every day x 7d 02/06/2021 05/05/2021 leflunomide (ARAVA) 10 mg tablet TAKE 1 TABLET(10 MG) BY MOUTH DAILY Reorder 03/31/2021 05/05/2021 documented as of this encounter Care Teams Grant Writer Relationship Specialty Start Date End Date Bhupinder Tobias MD [address] [place] [address] PCP - General Internal Medicine 06/03/20 Cash Woodruff III, MD [address] [place] [address] Rheumatology 04/12/17 Jorge Aguiar MD [address] [place] [address] Consulting Physician Urology 11/10/20 Khoa Arias MD [address] [place] [address] Referring Physician Gastroenterology 03/20/21 documented as of this encounter
--- OUTSIDE RECORDS SUMMARY | 2024-04-29 19:23 | XMS_ITS | Encounter Summary ---
Author Organization [facility] Address [address] [place] [address] Phone Care Team Providers Care Chief Juvenile Probation Officer Name Role Phone Kumar CARRILLO MD, Cash Howard Unavailable Bhupinder Tobias MD Primary Care Provider [phone] Jorge Aguiar MD Unavailable [phone] Khoa Arias MD Unavailable [phone] Encounter Details Date Type Department Care Team (Late st Contact Info) Description 08/10/2021 Telephone [facility] [address] [place] [phone] Miriam Frye PA [address] [place] [phone] Social History Tobacco Use Types Packs/Day Years Used Date Smoking Tobacco: Never Alcohol Use Standard Drinks/Week Comments No 0 (1 standard drink = 0.6 oz pur e alcohol) Comments No Sex and Gender Information Value Date Recorded Sex Assigned at Not on file Legal Sex Female 9:24 PM MEDICAL CERTIFICATION SPECIALIST Gender Identity Female 08/14/2022 11:32 AM CDT Sexual Orientation Straight 02/13/2023 7: 01 AM CDT documented as of this encounter Miscellaneous Notes * Telephone Encounter - Maisha Avila RN - 08/10/2021 5:26 PM CDT Orencia to be reloaded per Dr. Heath * Telephone Encounter - Maisha Avila RN - 08/10/2021 5:23 PM CDT Orencia scheduled * Telephone Encounter - Ghazala Westbrook - 08/10/2021 1:16 PM CDT Please schedule Orencia. Thank you. * Telephone Encounter - Miriam Frye PA - 08/10/2021 12:58 PM CDT Restart orencia in the office. documented in this encounter Plan of Treatment Not on file documented as of this encounter Visit Diagnoses Not on filedocumented in this encounter Care Teams Chief Juvenile Probation Officer Relationship Specialty Start Date End Date Bhupinder Tobias MD [facility] [address] [facility] [address] [place] [address] PCP - General Internal Medicine 06/03/20 Cash Heath III, MD [address] [facility] [address] [place] [address] Rheumatology 04/12/17 Jorge Aguiar MD [facility] [address] [facility] [address] [place] [address] Consulting Physician Urology 11/10/20 Khoa Arias MD [facility] [address] [facility] [address] [place] [address] Referring Physician Gastroenterology 03/20/21 documented as of this encounter
--- OUTSIDE RECORDS SUMMARY | 2024-04-29 19:23 | XMS_ITS | Encounter Summary ---
Author Organization [facility] Address [address] [place] [address] Phone Care Team Providers Care Grey Washer Name Role Phone Isaiah Quiros MD Unavailable Kumar CARRILLO MD, Cash Howard Unavailable [phone] Alex Mahajan MD Unavailable [phone] Bhupinder Tobias MD Unavailable [phone] Bhupinder Tobias MD Primary Care Provider [phone] Encounter Details Date Type Department Care Team (Late st Contact Info) Description 08/08/2020 2:00 PM CDT Office Visit [facility] [address] [place] [phone] Miriam Frye PA [address] [place] [phone] Psoriatic arthritis (CMS/HCC) (Primary Dx); Osteoporosis without current pathological fracture, unspecified osteoporosis type; Kidney stones; Encounter for long-term (current) use of medications; Meredith-Danlos disease Social History Tobacco Use Types Packs/Day Years Used Date Smoking Tobacco: Never Alcohol Use Standard Drinks/Week Comments No 0 (1 standard drink = 0.6 oz pur e alcohol) Comments No Sex and Gender Information Value Date Recorded Sex Assigned at Not on file Legal Sex Female 9:24 PM SMUTTER Gender Identity Female 08/14/2022 11:32 AM CDT Sexual Orientation Straight 02/13/2023 7: 01 AM CDT documented as of this encounter Progress Notes * Miriam Frye PA - 08/08/2020 2:00 PM CDT Images from the original note were not included. Subjective/Objective Patient ID: Julian Smith is a 45 y.o. female. Chief Complaint Joint pain HPI Hands are hurting but only had 1 stelara injection so far. . No se from [employer]. Does not think [employer] is working. Her father had hx of psoriasis and UC. Seeing GI soon for colonoscopy. No sob, cp, rashes, oral or nose [...] Exam Constitutional: She appears well-developed and well-nourished. Overweight. Head: Normocephalic and atraumatic. Right Ear: External [...] dry. Psychiatric: Normal mood. Vitals reviewed. CDAI: 23 Labs Lab Results Component Value Date WBC 7.8 06/03/2020 HGB 13.8 06/03/2020 HCT 41.6 06/03/2020 MCV 87.8 06/03/2020 Lab Results Component Value Date GLUCOSE 82 06/03/2020 CALCIUM 9.2 06/03/2020 SODIUM 138 06/03/2020 POTASSIUM 4.1 06/03/2020 CO2 25 06/03/2020 CHLORIDE 106 06/03/2020 BUNSER 12 06/03/2020 CREATININE 0.91 06/03/2020 Lab Results Component Value Date ALT 16 06/03/2020 AST 15 06/03/2020 ALKPHOS 54 06/03/2020 BILITOT 0.4 06/03/2020 Lab Results Component Value Date SEDRATE 6 06/03/2020 Lab Results Component Value Date CRP 4.2 06/03/2020 Assessment/Plan Diagnoses and all orders for this visit: Psoriatic arthritis (CMS/[facility]) (Primary) Assessment & Plan: Mod cdai. On imuran to 100mg bid and Stelara. Discussed potential se and risks of stelara tx. Stillhas joint swelling but so far only had 1 stelara injection so far. Sees gi soon for her colonoscopy. Continue imuran. Check labs today. Had both pfizer vaccines already, no se from this. Past serologies: [facility] panel 08/2019---labs reveal positive anti-WATER RESOURCE SPECIALIST antibody which is likely a false positive due tonegative ASHLEY. ?? RF neg but has a possible family hx of psoriatic arthritis (father) so if she develops psoriasis diagnosis will change to psoriatic arthritis. Rt hand US 09/2019 showed: ?? Orders: - Urinalysis reflex to microscopic and culture Urine, bladder; Future - Protein / creatinine ratio, urine, random; Future - Comprehensive metabolic panel; Future - CRP (acute phase); Future - CBC with auto differential; Future - Anti-double stranded DNA antibodies; Future - C4 complement; Future - C3 complement; Future - Erythrocyte sedimentation rate; Future Osteoporosis without current pathological fracture, unspecified osteoporosis type Assessment & Plan: bds checked by pcp in past, is taking ca and vit d and pcp checked vit D and PTH per pt was wnl. Her pcp started her on alendronate 70mg po qweek. Taking ca + vit d 1200mg qd. Kidney stones Assessment & Plan: Multiple kidney stones for over 10 yrs, they uric acid. Has proteinuria also. Urologist is keepin tabs on this. Urologist has him on potassium citrate. Orders: - Urinalysis reflex to microscopic and culture Urine, bladder; Future - Protein / creatinine ratio, urine, random; Future - Comprehensive metabolic panel; Future - CRP (acute phase); Future - CBC with auto differential; Future - Anti-double stranded DNA antibodies; Future - C4 complement; Future - C3 complement; Future - Erythrocyte sedimentation rate; Future Encounter [...] showed osteoporosis [facility] 08/2019---[facility] labs reveal positive anti-WATER RESOURCE SPECIALIST antibody which is likely a false [...] r/o aortic aneurysm, to discuss with pcp. Cosigned by Cash Heath III, MD at 08/08/2020 5:45 PM CDT documented in this encounter Miscellaneous Notes * Assessment & Plan Note - Miriam Frye PA - 08/08/2020 8:17 AM CDTAssociated Problem(s): Meredith-Danlos disease Was advised in past to get chest CT to r/o aortic aneurysm, to discuss with pcp. * Assessment & Plan Note - Miriam Frye PA - 08/08/2020 8:17 AM CDTAssociated Problem(s): Encounter for long-term (current) [...] showed osteoporosis [facility] 08/2019---[facility] labs reveal positive anti-WATER RESOURCE SPECIALIST antibody which is likely a false positive due tonegative ASHLEY. Her father had psoriasis, pt changed from ra to PsA on 03/25/2020. ?? * Assessment & Plan Note - Miriam Frye PA - 08/08/2020 8:17 AM CDTAssociated Problem(s): Kidney stones Multiple kidney stones for over 10 yrs, they uric acid. Has proteinuria also. Urologist is keepin tabs on this. Urologist has him on potassium citrate. * Assessment & Plan Note - Miriam Frye PA - 08/08/2020 8:17 AM CDTAssociated Problem(s): Osteoporosis without current pathological fracture bds checked by pcp in past, is taking ca and vit d and pcp checked vit D and PTH per pt was wnl. Her pcp started her on alendronate 70mg po qweek. Taking ca + vit d 1200mg qd. * Assessment & Plan Note - Miriam Frye PA - 08/08/2020 8:17 AM CDTAssociated Problem(s): Psoriatic arthritis (HCC) Images from the original note were not included. Mod cdai. On imuran to 100mg bid and Stelara. Discussed potential se and risks of stelara tx. Stillhas joint swelling but so far only had 1 stelara injection so far. Sees gi soon for her colonoscopy. Continue imuran. Check labs today. Had both pfizer vaccines already, no se from this. Past serologies: [facility] panel 08/2019---labs reveal positive anti-WATER RESOURCE SPECIALIST antibody which is likely a false positive due tonegative ASHLEY. ?? RF neg but has a possible family hx of psoriatic arthritis (father) so if she develops psoriasis diagnosis will change to psoriatic arthritis. Rt hand US 09/2019 showed: ?? documented in this encounter Plan of Treatment Scheduled Orders Name Type Priority Associated Diagnoses Orde r Schedule C4 complement Lab Routine Psoriatic arthritis ([facility]) Kidney stones Encounter for long-term (current) use of medications Expected: 08/08/2020, Expires: 08/08/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 Lab Routine Psoriatic arthritis ([facility]) Kidney stones Encounter for long-term (current) use of medications Expected: 08/08/2020, Expires: 08/08/2021 documented as of this encounter Procedures Procedure Name Priority Date/Time Associated Diagnosis Comments C4 COMPLEMENT Routine 08/08/2020 1:56 PM CDT ANTI-DOUBLE STRANDED DNA ANTIBODIES Routine 08/08/2020 1:56 PM CDT Psoriatic arthritis ([facility]) Kidney stones Encounter for long-term (current) use of medications URINALYSIS AND REFLEX TO MICROSCOPIC AND CULTURE Routine 08/08/2020 1:56 PM CDT Psoriatic arthritis (CMS/HCC) Kidney stones Encounter for long-term (current) use of medications CBC WITH AUTO DIFFERENTIAL Routine 08/08/2020 1:56 PM CDT Psoriatic arthritis (CMS/HCC) Kidney stones Encounter for long-term (current) use of medications PROTEIN / CREATININE RATIO, URINE, RANDOM Routine 08/08/2020 1:56 PM CDT Psoriatic arthritis (CMS/HCC) Kidney stones Encounter for long-term (current) use of medications ERYTHROCYTE SEDIMENTATION RATE Routine 08/08/2020 1:56 PM CDT Psoriatic arthritis (CMS/HCC) Kidney stones Encounter for long-term (current) use of medications C3 COMPLEMENT Routine 08/08/2020 1:56 PM CDT CRP (ACUTE PHASE) Routine 08/08/2020 1:5 6 PM CDT Psoriatic arthritis ([facility]) Kidney stones Encounter for long-term (current) use of medications COMPREHENSIVE METABOLIC PANEL Routine 08/08/2020 1:56 PM CDT Psoriatic arthritis ([facility]/HCC) Kidney stones Encounter for long-term (current) use of medications documented in this encounter Results * C4 complement (08/08/2020 1:56 PM CDT) Complement component C4C 26 15 - 57 mg/dL [facility] 08/08/2020 1:56 PM CDT 08/08/2020 1:59 PM CDT us Miriam VALLE LAB BLOOD ORDERAB LES Final Result [facility] [address] [place] [address] * C3 complement (08/08/2020 1:56 PM CDT) Complement component C3C 128 83 - 193 mg/dL [facility] 08/08/2020 1:56 PM CDT 08/08/2020 1:59 PM CDT Miriam VALLE LAB BLOOD ORDERAB LES Final Result Performing Organization Address [facility] de Phone Number [facility] [address] [place] [address] * Erythrocyte sedimentation rate (08/08/2020 1:56 PM CDT) Erythrocyte sedimentation rate 2 < OR = 20 mm/h [facility] Blood specimen (specimen) 08/08/2020 1:56 PM CDT 08/08/2020 1:59 PM CDT Miriam VALLE LAB BLOOD ORDERAB LES Final Result Performing Organization Address [facility] de Phone Number [facility] [address] [place] [address] * Anti-double stranded DNA antibodies (08/08/2020 1:56 PM CDT) DNA (DS) ab <1 IU/mL [facility] Comment: ? IU/mL ? Interpretation ? < or = 4 ?Negative ? 5-9 ? Indeterminate ? > or = 10 ?? Positive Blood specimen (specimen) 08/08/2020 1:56 PM CDT 08/08/2020 1:59 PM CDT us Miriam [facility] BLOOD ORDERAB LES Final Result [facility] [address] [address] * (ABNORMAL) CBC with auto differential (08/08/2020 1:56 PM CDT) WBC 7.7 3.8 - 10.8 Thousand/u L [facility] RBC, POC 4.43 3.80 - 5.10 Million/uL [facility] Hgb 13.6 11.7 - 15.5 g/dL [facility] Hct 40.2 35.0 - 45.0 % [facility] MCV 90.7 80.0 - 100.0 fL [facility] MCH 30.7 27.0 - 33.0 pg [facility] MCHC 33.8 32.0 - 36.0 g/dL [facility] Rdw 15.3(H) 11.0 - 15.0 % [facility] Platelets 365 140 - 400 Thousand/u L [facility] MPV 9.4 7.5 - 12.5 fL [facility] Neutrophils, abs 5,944 1,500 - 7,800 cells/uL [facility] Lymphocytes, abs 1,194 850 - 3,900 cells/uL [facility] Monocyte abs 277 200 - 950 cells/uL [facility] Eosinophils, abs 177 15 - 500 cells/uL [facility] Basophils, abs 108 0 - 200 cells/uL [facility] Neutrophils 77.2 % [facility] Lymphocyte pct 15.5 % [facility] Monocytes 3.6 % [facility] Eosinophils 2.3 % [facility] Basophils 1.4 % [facility] Blood specimen (specimen) 08/08/2020 1:56 PM CDT 08/08/2020 1:59 PM CDT Miriam VAL[facility] LAB BLOOD ORDERAB LES Final Result Performing Organization Address City/[facility]/ZIP Co de Phone Number [facility] [address] [place] [address] * CRP (acute phase) (08/08/2020 1:56 PM CDT) Pathologist [facility] C-RP 4.9 <8.0 mg/L [facility] Blood specimen (specimen) 08/08/2020 1:56 PM CDT 08/08/2020 1:59 PM CDT Miriam [facility] LAB BLOOD ORDERAB LES Final Result Performing Organization Address [facility] de Phone Number [facility] [address] [facility] [place] [address] * (ABNORMAL) Comprehensive metabolic panel (08/08/2020 1:56 PM CDT) Pathologist [facility] Glucose 115(H) 65 - 99 mg/dL [facility] [place] Comment: ? Fasting reference interval For someone without known diabetes, a glucose value between 100 and 125 mg/dL is consistent with prediabetes and should be confirmed with a follow-up test. BUN 12 7 - 25 mg/dL [facility] [place] Creatinine 0.94 0.50 - 1.10 mg/dL [facility] [place] eGFR NON-AFR. PAKISTANI 73 > OR = 60 mL/min/1. 73m2 [facility] [place] EGFR 84 > OR = 60 mL/min/1. 73m2 [facility] [place] BUN/creat ratio NOT APPLICABLE 6 - 22 (calc) [facility] Sodium 137 135 - 146 mmol/L [facility] [place] Potassium, pl 4.2 3.5 - 5.3 mmol/L [facility] [place] Chloride 102 98 - 110 mmol/L [facility] [place] CO2 26 20 - 32 mmol/L [facility] [place] Calcium 9.4 8.6 - 10.2 mg/dL [facility] [place] Protein, sr 6.6 6.1 - 8.1 g/dL [facility] [place] Albumin 4.2 3.6 - 5.1 g/dL [facility] [place] GLOBULIN 2.4 1.9 - 3.7 g/dL (calc) [facility] [place] Alb/glob ratio 1.8 1.0 - 2.5 (calc) [facility] [place] Bilirubin, total 0.5 0.2 - 1.2 mg/dL [facility] [place] Alk phos 58 31 - 125 U/L [facility] [place] AST 23 10 - 35 U/L [facility] [place] ALT (SGPT) 27 6 - 29 U/L [facility] [place] Blood specimen (specimen) 08/08/2020 1:56 PM CDT 08/08/2020 1:59 PM CDT Miriam [facility] LAB BLOOD ORDERAB LES Final Result Performing Organization Address City/[facility] Co de Phone Number [facility] [address] [facility] [place] [address] * (ABNORMAL) Protein / creatinine ratio, urine, random (08/08/2020 1:56 PM CDT) Creatinine, ur 43 20 - 275 mg/dL [facility] [...] [facility] Comment: Verified by repeat analysis. Urine 08/08/2020 1:56 PM CDT 08/08/2020 1:59 PM CDT us Miriam [facility] LAB URINE ORDERAB LES Final Result [facility] [address] [place] [address] * Urinalysis reflex to microscopic and culture Urine, bladder (08/08/2020 1:56 PM CDT) Color, ur YELLOW YELLOW [facility] Appearance, ur CLEAR CLEAR [facility] Specific gravity 1.005 1.001 - 1.035 [facility] pH, ur 7.0 5.0 - 8.0 [facility] Glucose, [...] [facility] Comment:NO CULTURE INDICATED Urine, bladder 08/08/2020 1: 56 PM CDT 08/08/2020 1:59 PM CDT us Miriam [facility] LAB MICROBIOLOGY - GENERAL ORDERABLES Final Result [facility] [address] [place] [address] documented in this encounter Visit Diagnoses Diagnosis Psoriatic arthritis (HCC)- Primary Psoriatic arthropathy Osteoporosis without current pathological fracture, unspecified osteoporosis type Kidney stones Calculus of kidney Encounter for long-term (current) use of medications Encounter for long-term (current) use of other medications Meredith-Danlos disease Meredith-Danlos syndrome documented in this encounter Care Teams Grey Washer Relationship Specialty Start Date End Date Bhupinder Tobias MD [address] [place] [address] PCP - General Internal Medicine 06/03/20 Isaiah Quiros MD [address] [facility] [address] [place] [address] Internal Medicine 02/18/17 03/19/21 Cash Heath III, MD [address] [place] [address] Rheumatology 04/12/17 Alex Mahajan MD [address] [place] [address] Referring Physician Internal Medicine 05/07/19 1 Bhupinder Tobias MD [address] [place] [address] Referring Physician Internal Medicine 06/03/20 1 documented as of this encounter
--- OUTSIDE RECORDS SUMMARY | 2024-04-29 19:23 | XMS_ITS | Encounter Summary ---
Author Organization [facility] Address [address] [place] [address] Phone Care Team Providers Care Structural Analyst Name Role Phone Isaiah Quiros MD Unavailable Kumar CARRILLO MD, Cash Howard Unavailable [phone] Alex Mahajan MD Unavailable [phone] Bhupinder Tobias MD Unavailable [phone] Bhupinder Tobias MD Primary Care Provider [phone] Jorge Aguiar MD Unavailable [phone] Reason for Visit * Reason Onset Date Comments AZA Dose Clarification 01/19/2021 Encounter Details Date Type Department Care Team (Late st Contact Info) Description 01/19/2021 Telephone [facility] [address] [place] [address] Tiara Rainey AZA Dose Clarification Social History Tobacco Use Types Packs/Day Years Used Date Smoking Tobacco: Never Alcohol Use Standard Drinks/Week Comments No 0 (1 standard drink = 0.6 oz pur e alcohol) Comments No Sex and Gender Information Value Date Recorded Sex Assigned at Not on file Legal Sex Female 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 * Telephone Encounter - Miriam Frye PA - 01/20/2021 9:09 AM CDT My note says 100mg bid. * Telephone Encounter - Tiara Rainey - 01/19/2021 4:18 PM CDT Pt states her AZA refill states to take 100 mg am & 50 mg pm however she thought she is supposed to be on 100 mg bid so is running out of med early. What dose is correct? documented in this encounter Plan of Treatment Not on file documented as of this encounter Visit Diagnoses Not on filedocumented in this encounter Discontinued Medications Medication Sig Discontinue Reason Start Date End Da te azaTHIOprine (IMURAN) 50 mg tablet TAKE 2 TABLETS BY MOUTH EVERY MORNING AND 1 TABLET EVERY EVENING Reorder 01/19/2021 01/20/2021 documented as of this encounter Care Teams Structural Analyst Relationship Specialty Start Date End Date Bhupinder Tobias MD [address] [place] [address] PCP - General Internal Medicine 06/03/20 Isaiah Quiros MD [address] [facility] [address] [place] [address] Internal Medicine 02/18/17 03/19/21 Cash Heath III, MD [address] [place] [address] Rheumatology 04/12/17 Alex Mahajan MD [address] [place] [address] Referring Physician Internal Medicine 05/07/19 1 Bhupinder Tobias MD [address] [address] Referring Physician Internal Medicine 06/03/20 1 Jorge Aguiar MD [address] [facility] [address] [place] [address] Consulting Physician Urology 11/10/20 documented as of this encounter
--- OUTSIDE RECORDS SUMMARY | 2024-04-29 19:23 | XMS_ITS | Encounter Summary ---
Author Organization [facility] Address [address] [place] [address] Phone Care Team Providers Care Manager Supply Chain Name Role Phone Isaiah Quiros MD Unavailable Kumar CARRILLO MD, Cash Howard Unavailable [phone] Alex Mahajan MD Unavailable [phone] Bhupinder Tobias MD Unavailable [phone] Bhupinder Tobias MD Primary Care Provider [phone] Encounter Details Date Type Department Care Team (Late st Contact Info) Description 11/07/2020 2:00 PM CDT Office Visit [facility] [address] [place] [phone] Miriam Frye PA [address] [place] [id number] Psoriatic arthritis (CMS/HCC) (HCC) (Primary Dx); [...] on file 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 Gender Identity Female 08/14/2022 11:32 AM CDT Sexual Orientation Straight 02/13/2023 7: 01 AM CDT documented as of this encounter Last Filed Vital Signs Vital Sign Reading Time Taken Comments Blood Pressure 152/78 11/07/2020 2:33 PM CDT Pulse 73 11/07/2020 2:33 PM CDT Temperature 36.7 ??C (98 ??F) 11/07/2020 2:33 PM CDT Respiratory Rate - - Oxygen Saturation 100% 11/07/2020 2:33 PM CDT Inhaled Oxygen Concentration - - Weight 89.1 kg (196 lb 6.4 oz) 11/07/2020 2:33 P M CDT Height - - Body Mass Index 31.7 06/03/2020 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 Subjective/Objective Patient ID: Julian Smith is a 45 y.o. female. Chief Complaint PsA HPI On imuran to 100mg bid and Stelara. Does not feel better on stelara. [facility]. Hands are swollen and painful. Ankles are swollen and painful. No sob, cp, rashes, oral or nose ulers. No psoriasis rash. Having upper gi problems. Has EGD this week.[place] is utd. Review of Systems Constitutional: Negative for fatigue [...] dry. Psychiatric: Normal mood. Vitals reviewed. CDAI: 25 Labs Lab Results Component Value Date WBC 7.7 08/08/2020 HGB 13.6 08/08/2020 HCT 40.2 08/08/2020 MCV 90.7 08/08/2020 Lab Results Component Value Date GLUCOSE 115 (H) 08/08/2020 CALCIUM 9.4 08/08/2020 SODIUM 137 08/08/2020 POTASSIUM 4.2 08/08/2020 CO2 26 08/08/2020 CHLORIDE 102 08/08/2020 BUNSER 12 08/08/2020 CREATININE 0.94 08/08/2020 Lab Results Component Value Date ALT 27 08/08/2020 AST 23 08/08/2020 ALKPHOS 58 08/08/2020 BILITOT 0.5 08/08/2020 Lab Results Component Value Date SEDRATE 2 08/08/2020 Lab Results Component Value Date CRP 4.9 08/08/2020 Assessment/Plan Diagnoses and all orders for this visit: Psoriatic arthritis ([facility]) (Primary) Assessment & Plan: High cdai. On imuran to 100mg bid and Stelara. Does not feel better on stelara. [facility]ants to go back to[facility] since she felt the best on that. Will stop stelara and go back to [facility]. She had her last stelara almost 3 months ago. Continue imuran. Check labs today. Had both pfizer vaccines already, no se from this. Past serologies: [facility] panel 08/2019---labs reveal positive anti-CRM CONSULTANT antibody which is likely a false positive due tonegative ASHLEY. ?? RF neg but has a possible family hx of psoriatic arthritis (father) so if she develops psoriasis diagnosis will change to psoriatic arthritis. Rt hand US 09/2019 showed: ?? Orders: - CBC with auto differential; Future - Comprehensive metabolic panel; Future - CRP (acute phase); Future - Erythrocyte sedimentation rate; Future - Anti-double stranded DNA antibodies; Future - C3 complement; Future - C4 complement; Future - Urinalysis reflex to microscopic and culture Urine, bladder; Future - Protein / creatinine ratio, urine, random; Future Osteoporosis without current pathological fracture, unspecified [...] uric acid. Has proteinuria also. Urologist is ronnain tabs on this. Urologist has her on potassium citrate. Encounter for long-term (current) use of medications [...] showed osteoporosis [facility] 08/2019---[facility] labs reveal positive anti-CRM CONSULTANT antibody which is likely a false positive due tonegative ASHLEY. Her father had psoriasis, pt changed from ra to PsA on 03/25/2020. ?? Orders: - CBC with auto differential; Future - Comprehensive metabolic panel; Future - CRP (acute phase); Future - Erythrocyte sedimentation rate; Future - Anti-double stranded DNA antibodies; Future - C3 complement; Future - C4 complement; Future - Urinalysis reflex to microscopic and culture Urine, bladder; Future - Protein / creatinine ratio, urine, random; Future Meredith-Danlos disease Assessment & Plan: Was advised in past to get chest CT to r/o aortic aneurysm, to discuss with pcp. Orders: - Anti-double stranded DNA antibodies; Future - C3 complement; Future - C4 complement; Future - Urinalysis reflex to microscopic and culture Urine, bladder; Future - Protein / creatinine ratio, urine, random; Future Cosigned by Cash Heath III, MD at 11/07/2020 4:34 PM CDT documented in this encounter Miscellaneous Notes * Result Encounter Note - Miriam Frye PA - 11/10/2020 2:11 PM CDT Since she sees a urologist I will defer treating this to her urologist, please send him the resultsasap and have pt contact her uro. * Result Encounter Note - Miriam Frye PA - 11/10/2020 1:00 PM CDT Grew group staph and strep in her urine, this is usually skin contaminant. See if she has uti symptoms. Plts elevated, this is usually to inflammation. * Assessment & Plan Note - Miriam Frye PA - 11/07/2020 11:28 AM CDTAssociated Problem(s): Meredith-Danlos disease Was advised in past to get chest CT to r/o aortic aneurysm, to discuss with pcp. * Assessment & Plan Note - Miriam Frye PA - 11/07/2020 11:28 AM CDTAssociated Problem(s): Encounter for long-term (current) [...] showed osteoporosis [facility] 08/2019---[facility] labs reveal positive anti-CRM CONSULTANT antibody which is likely a false positive due tonegative ASHLEY. Her father had psoriasis, pt changed from ra to PsA on 03/25/2020. ?? * Assessment & Plan Note - Miriam Frye PA - 11/07/2020 11:28 AM CDTAssociated Problem(s): Kidney stones Multiple kidney stones for over 10 yrs, they uric acid. Has proteinuria also. Urologist is keepin tabs on this. Urologist has her on potassium citrate. * Assessment & Plan Note - Miriam Frye PA - 11/07/2020 11:28 AM CDTAssociated Problem(s): Osteoporosis without current pathological fracture bds checked by pcp in past, is taking ca and vit d and pcp checked vit D and PTH per pt was wnl. Her pcp started her on alendronate 70mg po qweek. Taking ca + vit d 1200mg qd. * Assessment & Plan Note - Miriam Frye PA - 11/07/2020 11:28 AM CDTAssociated Problem(s): Psoriatic arthritis (HCC) Images from the original note were not included. High cdai. On imuran to 100mg bid and Stelara. Does not feel better on stelara. [facility]ants to go back [facility] since she felt the best on that. Will stop stelara and go back to [facility]. She had her last stelara almost 3 months ago. Continue imuran. Check labs today. Had both pfizer vaccines already, no se from this. Past serologies: [facility] panel 08/2019---labs reveal positive anti-CRM CONSULTANT antibody which is likely a false positive due tonegative ASHLEY. ?? RF neg but has a possible family hx of psoriatic arthritis (father) so if she develops psoriasis diagnosis will change to psoriatic arthritis. Rt hand US 09/2019 showed: ?? documented in this encounter Plan of Treatment Scheduled Orders Name Type Priority Associated Diagnoses Orde r Schedule Anti-double stranded DNA antibodies Lab Routine Psoriatic arthritis ([facility]) Encounter for long-term (current) use 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/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/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 Lab Routine Psoriatic arthritis ([facility]) Encounter for long-term (current) use of medications Meredith-Danlos disease Expected: 11/07/2020, Expires: 11/07/2021 C4 complement Lab Routine Psoriatic arthritis ([facility]) Encounter for long-term (current) use of medications Meredith-Danlos disease Expected: 11/07/2020, Expires: 11/07/2021 Urinalysis reflex to microscopic and culture Urine, bladder Microbiology Routine Psoriatic arthritis ([facility]) Encounter for long-term (current) use 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/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/2021 Protein / creatinine ratio, urine, random Lab Routine Psoriatic arthritis ([facility]) Encounter for long-term (current) use 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/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/2021 documented as of this encounter Procedures Procedure Name Priority Date/Time Associated Diagnosis Comments REFLEXIVE URINE CULTURE Routine 11/07/2020 3:26 PM CDT C4 COMPLEMENT Routine 11/07/2020 3:26 PM CDT ANTI-DOUBLE STRANDED DNA ANTIBODIES Routine 11/07/2020 3:26 PM CDT URINALYSIS AND REFLEX TO MICROSCOPIC AND CULTURE Routine 11/07/2020 3:26 PM CDT CBC WITH AUTO DIFFERENTIAL Routine 11/07/2020 3:26 PM CDT Psoriatic arthritis ([facility]) ([facility]) Encounter for long-term (current) use of medications PROTEIN / CREATININE RATIO, URINE, RANDOM Routine 11/07/2020 3:26 PM CDT ERYTHROCYTE SEDIMENTATION RATE Routine 11/07/2020 3:26 PM CDT Psoriatic arthritis ([facility]) ([facility]) Encounter for long-term (current) use of medications URINE CULTURE Routine 11/07/2020 3:26 PM CDT C3 COMPLEMENT Routine 11/07/2020 3:26 PM CDT CRP (ACUTE PHASE) Routine 11/07/2020 3:2 6 PM CDT Psoriatic arthritis ([facility]/H[facility]) ([facility]) Encounter for long-term (current) use of medications COMPREHENSIVE METABOLIC PANEL Routine 11/07/2020 3:26 PM CDT Psoriatic arthritis ([facility]) ([facility]) Encounter for long-term (current) use of medications documented in this encounter Results * (ABNORMAL) Urine culture (11/07/2020 3:26 PM CDT) Urine culture (A) [facility] Comment: ??CULTURE, URINE, ROUTINE ?Micro Number: ?[id number] ??Test Status: ? Final ??Specimen Source: ?? URINE ??Specimen Quality: ??Adequate ??Result: ?Greater than 100,000 CFU/mL of Staphylococcus aureus ? Greater than 100,000 CFU/mL of ? Group B Streptococcus isolated ? Beta-hemolytic streptococci are predictably ? susceptible to Penicillin and other beta-lactams. ? Susceptibility testing not routinely performed. ? Please contact the laboratory within 3 days if ? susceptibility testing is desired. ??Comment: ? Erythromycin and clindamycin are not recommended ? for treatment of urinary tract infections, ? but clindamycin may be useful for treatment in ? penicillin allergic patients for rectovaginal ? colonization or for intrapartum prophylaxis if ? indicated. ? Any amount of group B Streptococcus in urine ? specimens obtained from females is a ? marker of genital tract colonization. If this ? patient is , please refer to ACOG ? guidelines for appropriate screening and ? management of women. ??COMMENT: ? Additional non-predominating organism(s) isolated. ? These organisms, commonly found on external and ? internal genitalia, are considered colonizers. No ? further testing performed. ?S.aureus ?INT ?? CARLOS EDUARDO ?? CIPROFLOXACIN ?S ? <=0.5 ?? GENTAMICIN ? S ? <=0.5 ?? LEVOFLOXACIN ? S ? <=0.12 ?? MOXIFLOXACIN ? S ? <=0.25 ?? NITROFURANTOIN ? S ? 32 ?? OXACILLIN ?S ? <=0.25 1 ?? TETRACYCLINE ? S ? <=1 ?? TRIMETHOPRIM/SULFA ? S ? <=10 ?? VANCOMYCIN ? S ? 1 S=Susceptible ??I=Intermediate ??R=Resistant ??* = Not Tested NR = Not Reported ??NN = See Therapy Comments THERAPY COMMENTS ?Note 1: ?Oxacillin-susceptible staphylococci are ?susceptible to other penicillinase-stable ?penicillins (e.g. Methicillin, Nafcillin), beta- ?lactam/beta-lactamase inhibitor combinations, and ?cephems with staphylococcal indications, including ?Cefazolin. 11/07/2020 3:26 PM CDT 11/07/2020 3:28 PM CDT [facility] MICROBIOLOGY - GENERAL ORDERABLES Final Result [facility] [address] [place] [address] * Protein / creatinine ratio, urine, random (11/07/2020 3:26 PM CDT) Creatinine, ur 133 20 - 275 mg/dL [facility] Protein/creatin ine ratio 120 21 - 161 mg/g creat [facility] Protein/Creatin ine Ratio 0.120 0.021 - 0.161 mg/mg creat [facility] Protein, ur, quant 16 5 - 24 mg/dL [facility] 11/07/2020 3:26 PM CDT 11/07/2020 3:28 PM CDT [facility] URINE ORDERAB LES Final Result [facility] [address] [place] [address] * C4 complement (11/07/2020 3:26 PM CDT) Complement component C4C 26 15 - 57 mg/dL [facility] 11/07/2020 3:26 PM CDT 11/07/2020 3:28 PM CDT [facility] BLOOD ORDERAB LES Final Result Performing Organization Address [facility] de Phone Number [facility] [address] [place] [address] * C3 complement (11/07/2020 3:26 PM CDT) Complement component C3C 135 83 - 193 mg/dL [facility] 11/07/2020 3:26 PM CDT 11/07/2020 3:28 PM CDT [facility] BLOOD ORDERAB LES Final Result Performing Organization Address [facility] de Phone Number [facility] [address] [place] [address] * Anti-double stranded DNA antibodies (11/07/2020 3:26 PM CDT) DNA (DS) ab <1 IU/mL [facility] Comment: ? IU/mL ? Interpretation ? < or = 4 ?Negative ? 5-9 ? Indeterminate ? > or = 10 ?? Positive 11/07/2020 3:26 PM CDT 11/07/2020 3:28 PM CDT [facility] BLOOD ORDERAB LES Final Result Performing Organization Address [facility] de Phone Number [facility] [address] [facility] [place] [address] * REFLEXIVE URINE CULTURE (11/07/2020 3:26 PM CDT) Urine culture [facility] Comment:CULTURE INDICATED - RESULTS TO FOLLOW 11/07/2020 3:26 PM CDT 11/07/2020 3:28 PM CDT [facility] MICROBIOLOGY - GENERAL ORDERABLES Final Result Performing Organization Address City/[facility]/ZIP Co de Phone Number [facility] [address] [place] [address] * (ABNORMAL) Urinalysis reflex to microscopic and culture (11/07/2020 3:26 PM CDT) Color, ur DARK YELLOW YELLOW [facility] Appearance, ur CLEAR CLEAR [facility] Specific gravity 1.021 1.001 - 1.035 [facility] pH, ur 6.0 5.0 - 8.0 [facility] Glucose, ur NEGATIVE NEGATIVE [facility] Bilirubin, ur NEGATIVE NEGATIVE [facility] Ketones, ur NEGATIVE NEGATIVE [facility] Blood, ur TRACE(A) NEGATIVE [facility] Protein, ur, quant NEGATIVE NEGATIVE [facility] Nitrites, ur NEGATIVE NEGATIVE [facility] Leukocyte esterase, ur TRACE(A) NEGATIVE [facility] WBC, ur 0-5 < OR = 5 /HPF [facility] RBC, ur 0-2 < OR = 2 /HPF [facility] Epithelial cells, squamous, ur 0-5 < OR = 5 /HPF [facility] Bacteria, ur, quant FEW(A) NONE SEEN /HPF [facility] Hyaline cast NONE SEEN NONE SEEN /LPF [facility] 11/07/2020 3:26 PM CDT 11/07/2020 3:28 PM CDT [facility] MICROBIOLOGY - GENERAL ORDERABLES Final Result [facility] [address] [place] [address] * Erythrocyte sedimentation rate (11/07/2020 3:26 PM CDT) [facility] Erythrocyte sedimentation rate 6 < OR = 20 mm/h [facility] Blood specimen (specimen) 11/07/2020 3:26 PM CDT 11/07/2020 3:28 PM CDT [facility] BLOOD ORDERAB LES Final Result [facility] [address] [place] [address] * CRP (acute phase) (11/07/2020 3:26 PM CDT) [facility] C-RP 4.1 <8.0 mg/L [facility] Blood specimen (specimen) 11/07/2020 3:26 PM CDT 11/07/2020 3:28 PM CDT [facility] BLOOD ORDERAB LES Final Result Performing Organization Address City/[facility] Co de Phone Number [facility] [address] [place] [address] * (ABNORMAL) Comprehensive metabolic panel (11/07/2020 3:26 PM CDT) [facility] Glucose 84 65 - 99 mg/dL [facility] Comment: ? Fasting reference interval BUN 14 7 - 25 mg/dL [facility] Creatinine 0.85 0.50 - 1.10 mg/dL [facility] eGFR NON-AFR. CHILEAN 82 > OR = 60 mL/min/1. 73m2 [facility] EGFR 95 > OR = 60 mL/min/1. 73m2 [facility] BUN/creat ratio NOT APPLICABLE 6 - 22 (calc) [facility] Sodium 135 135 - 146 mmol/L [facility] Potassium, pl 4.1 3.5 - 5.3 mmol/L [facility] Chloride 103 98 - 110 mmol/L [facility] CO2 21 20 - 32 mmol/L [facility] Calcium 8.9 8.6 - 10.2 mg/dL [facility] Protein, sr 7.0 6.1 - 8.1 g/dL [facility] Albumin 4.1 3.6 - 5.1 g/dL [facility] GLOBULIN 2.9 1.9 - 3.7 g/dL (calc) [facility] Alb/glob ratio 1.4 1.0 - 2.5 (calc) [facility] Bilirubin, total 0.5 0.2 - 1.2 mg/dL [facility] Alk phos 63 31 - 125 U/L [facility] AST 21 10 - 35 U/L [facility] ALT (SGPT) 33(H) 6 - 29 U/L [facility] Blood specimen (specimen) 11/07/2020 3:26 PM CDT 11/07/2020 3:28 PM CDT us [facility] BLOOD ORDERAB LES Final Result [facility] [address] [place] [address] * (ABNORMAL) CBC with auto differential (11/07/2020 3:26 PM CDT) WBC 8.1 3.8 - 10.8 Thousand/u L [facility] RBC, POC 4.66 3.80 - 5.10 Million/uL [facility] Hgb 14.5 11.7 - 15.5 g/dL [facility] Hct 43.9 35.0 - 45.0 % [facility] MCV 94.2 80.0 - 100.0 fL [facility] MCH 31.1 27.0 - 33.0 pg [facility] MCHC 33.0 32.0 - 36.0 g/dL [facility] Rdw 14.5 11.0 - 15.0 % [facility] Platelets 408(H) 140 - 400 Thousand/u L [facility] MPV 9.6 7.5 - 12.5 fL [facility] Neutrophils, abs 6,164 1,500 - 7,800 cells/uL [facility] Lymphocytes, abs 1,328 850 - 3,900 cells/uL [facility] Monocyte abs 405 200 - 950 cells/uL [facility] Eosinophils, abs 113 15 - 500 cells/uL [facility] Basophils, abs 89 0 - 200 cells/uL [facility] Neutrophils 76.1 % [facility] Lymphocyte pct 16.4 % [facility] Monocytes 5.0 % [facility] Eosinophils 1.4 % [facility] Basophils 1.1 % [facility] Blood specimen (specimen) 11/07/2020 3:26 PM CDT 11/07/2020 3:28 PM CDT us [facility] BLOOD ORDERAB LES Final Result [facility] [address] [place] [address] documented in this encounter Visit Diagnoses Diagnosis Psoriatic arthritis (HCC)- Primary Psoriatic arthropathy Osteoporosis without current pathological fracture, unspecified osteoporosis type Kidney stones Calculus of kidney Encounter for long-term (current) use of medications Encounter for long-term (current) use of other medications Meredith-Danlos disease Meredith-Danlos syndrome documented in this encounter Care Teams Manager Supply Chain Relationship Specialty Start Date End Date Bhupinder Tobias MD [address] [address] PCP - General Internal Medicine 06/03/20 Isaiah Quiros MD [address] [facility] 1 [place], [place] [id number] Internal Medicine 02/18/17 03/19/21 Cash Heath III, MD [address] [place] [address] Rheumatology 04/12/17 Alex Mahajan MD [address] [place] [address] Referring Physician Internal Medicine 05/07/19 1 Bhupinder Tobias MD [address] [place] [address] Referring Physician Internal Medicine 06/03/20 1 documented as of this encounter
--- OUTSIDE RECORDS SUMMARY | 2024-04-29 19:23 | XMS_ITS | Encounter Summary ---
Author Organization [facility] Address [address] [place] [address] Phone Care Team Providers Care Process Development Technician Name Role Phone Isaiah Quiros MD Unavailable Kumar CARRILLO MD, Cash Howard Unavailable [phone] Alex Mahajan MD Unavailable [phone] Bhupinder Tobias MD Unavailable [phone] Bhupinder Tobias MD Primary Care Provider [phone] Jorge Aguiar MD Unavailable [phone] Reason for Visit * Reason Onset Date Comments Labs/ Urology Needs 11/11/2020 Encounter Details Date Type Department Care Team (Late st Contact Info) Description 11/11/2020 Telephone [facility] [address] [place] [phone] Celestina Logan Labs/ Urology Needs Social History Tobacco Use Types Packs/Day Years Used Date Smoking Tobacco: Never Alcohol Use Standard Drinks/Week Comments No 0 (1 standard drink = 0.6 oz pur e alcohol) Comments No Sex and Gender Information Value Date Recorded Sex Assigned at Not on file 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 Provided fax number of [phone]. Printed reports and faxed to number provided. Called her to let her know completed. documented in this encounter Plan of Treatment Not on file documented as of this encounter Visit Diagnoses Not on filedocumented in this encounter Care Teams Process Development Technician Relationship Specialty Start Date End Date Bhupinder Tobias MD [address] [address] PCP - General Internal Medicine 06/03/20 Isaiah Quiros MD [address] [facility] 1 [place] [address] Internal Medicine 02/18/17 03/19/21 Cash Heath III, MD [address] [facility] [address] [place] [address] Rheumatology 04/12/17 Alex Mahajan MD [address] [place] [address] Referring Physician Internal Medicine 05/07/19 1 Bhupinder Tobias MD [address] [facility] [address] [facility] [address] [place] [address] Referring Physician Internal Medicine 06/03/20 1 Jorge Aguiar MD [address] [address] Consulting Physician Urology 11/10/20 documented as of this encounter
--- OUTSIDE RECORDS SUMMARY | 2024-04-29 19:23 | XMS_ITS | Encounter Summary ---
Author Organization [facility] Address [address] [place] [address] Phone Care Team Providers Care Teasel Gig Operator Name Role Phone Isaiah Quiros MD Unavailable Kumar CARRILLO MD, Cash Howard Unavailable [phone] Alex Mahajan MD Unavailable [phone] Bhupinder Tobias MD Unavailable [phone] Bhupinder Tobias MD Primary Care Provider [phone] Reason for Visit * Reason Comments Arthritis Rheumatoid Arthritis Encounter Details Date Type Department Care Team (Late st Contact Info) Description 06/03/2020 2:30 PM DESIGN QUALITY ENGINEER Office Visit [facility] [address] [place] [address] Miriam Frye PA [address] [place] [address] Psoriatic arthritis (CMS/HCC) (Primary Dx); Osteoporosis without current pathological fracture, unspecified osteoporosis type; Encounter for long-term (current) use of medications; Meredith-Danlos disease; Kidney stones Social History Tobacco Use Types Packs/Day Years Used Date Smoking Tobacco: Never Alcohol Use Standard Drinks/Week Comments No 0 (1 standard drink = 0.6 oz pur e alcohol) Comments No Sex and Gender Information Value Date Recorded Sex Assigned at Not on file Legal Sex Female 9:24 PM DESIGN QUALITY ENGINEER Gender Identity Female 08/14/2022 11:32 AM CDT Sexual Orientation Straight 02/13/2023 7: 01 AM CDT documented as of this encounter Last Filed Vital Signs Vital Sign Reading Time Taken Comments Blood Pressure 134/78 06/03/2020 3:14 PM DESIGN QUALITY ENGINEER Pulse - - Temperature 36.7 ??C (98 ??F) 06/03/2020 3:14 PM DESIGN QUALITY ENGINEER Respiratory Rate - - Oxygen Saturation - - Inhaled Oxygen Concentration - - Weight 101.6 kg (224 lb) 06/03/2020 3:14 PM DESIGN QUALITY ENGINEER Height 167.6 cm (5' 6 ) 06/03/2020 3:14 PM DESIGN QUALITY ENGINEER Body Mass Index 36.15 06/03/2020 3:14 PM DESIGN QUALITY ENGINEER documented in this encounter Ordered Prescriptions Prescription Sig Dispense Quantity Refills Last Filled Start Date End Date traMADoL (ULTRAM) 50 mg tablet Take 1 tablet (50 mg total) by mouth every 8 (eight) hours as needed for pain 90 tablet 06/03/2020 07/01/2020 documented in this encounter Progress Notes * Miriam Frye PA - 06/03/2020 2:30 PM CST Images from the original note were not included. Subjective/Objective Patient ID: Madalyn Smith is a 45 y.o. female. Chief Complaint Joint pain HPI Since she started cosentyx (had 4 inj so far) she has had increasing diarrhea. Has hx of ibs with constipation but now getting bad diarrhea a few days a week. No blood in stool Or melena. Has not had colo in a few years. Her brother has Crohns' dz and her dad that and pat gmother had psoriasis. Hands are very swollen and painful. Has not seen any decrease in joint pain on cosentyx. Long hx of uric acid kidney stones, no dx of gout in past. Review of Systems Constitutional: Negative for fatigue [...] dry. Psychiatric: Normal mood. Vitals reviewed. abd nt, nd bsx 4. CDAI: 40 Labs Lab Results Component Value Date WBC 7.7 03/25/2020 HGB 13.7 03/25/2020 HCT 41.6 03/25/2020 MCV 88.5 03/25/2020 Lab Results Component Value Date GLUCOSE 86 03/25/2020 CALCIUM 8.9 03/25/2020 SODIUM 137 03/25/2020 POTASSIUM 4.3 03/25/2020 CO2 21 03/25/2020 CHLORIDE 106 03/25/2020 BUNSER 11 03/25/2020 CREATININE 0.94 03/25/2020 Lab Results Component Value Date ALT 13 03/25/2020 AST 12 03/25/2020 ALKPHOS 65 03/25/2020 BILITOT 0.3 03/25/2020 Lab Results Component Value Date SEDRATE 6 03/25/2020 Lab Results Component Value Date CRP 7.9 03/25/2020 Assessment/Plan Diagnoses and all orders for this visit: Psoriatic arthritis ([facility]) (Primary) Assessment & Plan: High cdai. On imuran to 100mg bid and cosentyx. Having increasing diarrhea on cosentyx so will stopit and change to Stelara. Discussed potential se and risks of stelara tx. To see her gi for her diarrhea, she is due for colonoscopy. Continue imuran. Seen with Dr Heath today. To get covid 19 vaccine when available. Past serologies: [facility] panel 08/2019---labs reveal positive anti-CONTAINER WASHER antibody which is likely a false positive [...] complement; Future - Erythrocyte sedimentation rate; Future - Uric acid; Future Osteoporosis without current pathological fracture, unspecified osteoporosis type Assessment & Plan: bds checked by pcp in past, is taking ca and vit d and pcp checked vit D and PTH per pt was wnl. Her pcp started her on alendronate 70mg po qweek. Taking ca + vit d 1200mg qd. Orders: - Urinalysis reflex to microscopic and [...] showed osteoporosis Avise 08/2019---[facility]ise labs reveal positive anti-CONTAINER WASHER antibody which is likely a false positive [...] aneurysm, to discuss with pcp. Orders: - Urinalysis reflex to microscopic and culture Urine, bladder; Future - Protein / creatinine ratio, urine, random; Future - Comprehensive metabolic panel; Future - CRP (acute phase); Future - CBC with auto differential; Future - Anti-double stranded DNA antibodies; Future - C4 complement; Future - C3 complement; Future - Erythrocyte sedimentation rate; Future Kidney stones Assessment & Plan: Multiple kidney stones for over 10 yrs, 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 Urologist is keepin tabs on this. Urologist has him on potassium citrate. Other orders - traMADoL (ULTRAM) 50 mg tablet; Take 1 tablet (50 mg total) by mouth every 8 (eight) hours as needed for pain Cosigned by Cash Heath III, MD at 06/07/2020 10:00 AM DESIGN QUALITY ENGINEER GN QUALITY ENGINEER GN QUALITY ENGINEER documented in this encounter Miscellaneous Notes * Assessment & Plan Note - Miriam Frye PA - 06/03/2020 2:53 PM CSTAssociated Problem(s): Kidney stones Multiple kidney stones for over 10 yrs, 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 Urologist is keepin tabs on this. Urologist has him on potassium citrate. GN QUALITY ENGINEER GN QUALITY ENGINEER * Assessment & Plan Note - Miriam Frye PA - 06/03/2020 7:38 AM CSTAssociated Problem(s): Psoriatic arthritis (HCC) Images from the original note were not included. High cdai. On imuran to 100mg bid and cosentyx. Having increasing diarrhea on cosentyx so will stopit and change to Stelara. Discussed potential se and risks of stelara tx. To see her gi for her diarrhea, she is due for colonoscopy. Continue imuran. Seen with Dr Heath today. To get covid 19 vaccine when available. Past serologies: [facility] panel 08/2019---labs reveal positive anti-CONTAINER WASHER antibody which is likely a false positive due tonegative ASHLEY. ?? RF neg but has a possible family hx of psoriatic arthritis (father) so if she develops psoriasis diagnosis will change to psoriatic arthritis. Rt hand US 09/2019 showed: ?? GN QUALITY ENGINEER GN QUALITY ENGINEER GN QUALITY ENGINEER * Assessment & Plan Note - Miriam Frye PA - 06/03/2020 7:38 AM CSTAssociated Problem(s): Osteoporosis without current pathological fracture bds checked by pcp in past, is taking ca and vit d and pcp checked vit D and PTH per pt was wnl. Her pcp started her on alendronate 70mg po qweek. Taking ca + vit d 1200mg qd. GN QUALITY ENGINEER * Assessment & Plan Note - Miriam Frye PA - 06/03/2020 7:37 AM CSTAssociated Problem(s): Encounter for long-term (current) [...] showed osteoporosis [facility]ise 08/2019---[facility]ise labs reveal positive anti-CONTAINER WASHER antibody which is likely a false positive due tonegative ASHLEY. Her father had psoriasis, pt changed from ra to PsA on 03/25/2020. ?? GN QUALITY ENGINEER GN QUALITY ENGINEER * Assessment & Plan Note - Miriam Frye PA - 06/03/2020 7:37 AM CSTAssociated Problem(s): Meredith-Danlos disease Was advised in past to get chest CT to r/o aortic aneurysm, to discuss with pcp. GN QUALITY ENGINEER documented in this encounter Plan of Treatment Scheduled Orders Name Type Priority Associated Diagnoses Orde r Schedule C4 complement Lab Routine Psoriatic arthritis (CMS/HCC) Osteoporosis without current pathological fracture, unspecified osteoporosis type Encounter for long-term (current) use of medications Meredith-Danlos disease Expected: 06/03/2020, Expires: 06/03/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 Lab Routine Psoriatic arthritis ([facility]/HCC) Osteoporosis without current pathological fracture, unspecified osteoporosis type Encounter for long-term (current) use of medications Meredith-Danlos disease Expected: 06/03/2020, Expires: 06/03/2021 Uric acid Lab Routine Psoriatic arthritis (CMS/HCC) 1 Occurrences starting 06/03/2020 until 06/03/2021 documented as of this encounter Procedures Procedure Name Priority Date/Time Associated Diagnosis Comments ANTI-DOUBLE STRANDED DNA ANTIBODIES Routine 06/03/2020 3:16 PM DESIGN QUALITY ENGINEER Psoriatic arthritis (CMS/HCC) Osteoporosis without current pathological fracture, unspecified osteoporosis type Encounter for long-term (current) use of medications Meredith-Danlos disease COMP C3C4 Routine 06/03/2020 3:16 PM DESIGN QUALITY ENGINEER URINALYSIS AND REFLEX TO MICROSCOPIC AND CULTURE Routine 06/03/2020 3:16 PM DESIGN QUALITY ENGINEER Psoriatic arthritis (CMS/HCC) Osteoporosis without current pathological fracture, unspecified osteoporosis type Encounter for long-term (current) use of medications Meredith-Danlos disease CBC WITH AUTO DIFFERENTIAL Routine 06/03/2020 3:16 PM DESIGN QUALITY ENGINEER Psoriatic arthritis (CMS/HCC) Osteoporosis without current pathological fracture, unspecified osteoporosis type Encounter for long-term (current) use of medications Meredith-Danlos disease PROTEIN / CREATININE RATIO, URINE, RANDOM Routine 06/03/2020 3:16 PM DESIGN QUALITY ENGINEER Psoriatic arthritis (CMS/HCC) Osteoporosis without current pathological fracture, unspecified osteoporosis type Encounter for long-term (current) use of medications Meredith-Danlos disease ERYTHROCYTE SEDIMENTATION RATE Routine 06/03/2020 3:16 PM DESIGN QUALITY ENGINEER Psoriatic arthritis (CMS/HCC) Osteoporosis without current pathological fracture, unspecified osteoporosis type Encounter for long-term (current) use of medications Meredith-Danlos disease CRP (ACUTE PHASE) Routine 06/03/2020 3:1 6 PM DESIGN QUALITY ENGINEER Psoriatic arthritis (CMS/HCC) Osteoporosis without current pathological fracture, unspecified osteoporosis type Encounter for long-term (current) use of medications Meredith-Danlos disease URIC ACID Routine 06/03/2020 3:16 PM DESIGN QUALITY ENGINEER COMPREHENSIVE METABOLIC PANEL Routine 06/03/2020 3:16 PM DESIGN QUALITY ENGINEER Psoriatic arthritis (CMS/HCC) Osteoporosis without current pathological fracture, unspecified osteoporosis type Encounter for long-term (current) use of medications Meredith-Danlos disease documented in this encounter Results * Uric acid (06/03/2020 3:16 PM DESIGN QUALITY ENGINEER) Uric acid 3.4 2.5 - 7.0 mg/dL [facility] Comment: Therapeutic target for gout patients: <6.0 mg/dL ?? 06/03/2020 3:16 PM DESIGN QUALITY ENGINEER 06/03/2020 3:17 PM DESIGN QUALITY ENGINEER us Miriam VALLE LAB BLOOD ORDERAB LES Final Result [facility] [address] [place] [address] * COMP C3C4 (06/03/2020 3:16 PM DESIGN QUALITY ENGINEER) Complement component C3C 131 83 - 193 mg/dL [facility] Complement component C4C 29 15 - 57 mg/dL [facility] 06/03/2020 3:16 PM DESIGN QUALITY ENGINEER 06/03/2020 3:17 PM DESIGN QUALITY ENGINEER Miriam VALLE LAB BLOOD ORDERAB LES Final Result Performing Organization Address [facility] Co de Phone Number [facility] [address] [place] [address] * Erythrocyte sedimentation rate (06/03/2020 3:16 PM DESIGN QUALITY ENGINEER) Pathologist [facility] Erythrocyte sedimentation rate 6 < OR = 20 mm/h [facility] Blood specimen (specimen) 06/03/2020 3:16 PM DESIGN QUALITY ENGINEER 06/03/2020 3:17 PM DESIGN QUALITY ENGINEER Miriam VALLE LAB BLOOD ORDERAB LES Final Result Performing Organization Address [facility] Co de Phone Number [facility] [employer] [facility] [address] [place] [address] * Anti-double stranded DNA antibodies (06/03/2020 3:16 PM DESIGN QUALITY ENGINEER) Pathologist [facility] DNA (DS) ab <1 IU/mL [facility] Comment: ? IU/mL ? Interpretation ? < or = 4 ?Negative ? 5-9 ? Indeterminate ? > or = 10 ?? Positive Blood specimen (specimen) 06/03/2020 3:16 PM DESIGN QUALITY ENGINEER 06/03/2020 3:17 PM DESIGN QUALITY ENGINEER Miriam VALLE LAB BLOOD ORDERAB LES Final Result [facility] [address] [place] [address] * CBC with auto differential (06/03/2020 3:16 PM DESIGN QUALITY ENGINEER) WBC 7.8 3.8 - 10.8 Thousand/u L [facility] RBC, POC 4.74 3.80 - 5.10 Million/uL [facility] Hgb 13.8 11.7 - 15.5 g/dL [facility] Hct 41.6 35.0 - 45.0 % [facility] MCV 87.8 80.0 - 100.0 fL [facility] MCH 29.1 27.0 - 33.0 pg [facility] MCHC 33.2 32.0 - 36.0 g/dL [facility] Rdw 14.4 11.0 - 15.0 % [facility] Platelets 351 140 - 400 Thousand/u L [facility] MPV 9.4 7.5 - 12.5 fL [facility] Neutrophils, abs 5,593 1,500 - 7,800 cells/uL [facility] Lymphocytes, abs 1,381 850 - 3,900 cells/uL [facility] Monocyte abs 601 200 - 950 cells/uL [facility] Eosinophils, abs 109 15 - 500 cells/uL [facility] Basophils, abs 117 0 - 200 cells/uL [facility] Neutrophils 71.7 % [facility] Lymphocyte pct 17.7 % [facility] Monocytes 7.7 % [facility] Eosinophils 1.4 % [facility] Basophils 1.5 % [facility] Blood specimen (specimen) 06/03/2020 3:16 PM DESIGN QUALITY ENGINEER 06/03/2020 3:17 PM DESIGN QUALITY ENGINEER Miriam VALLE LAB BLOOD ORDERAB LES Final Result Performing Organization Address [facility] de Phone Number [facility] [address] [place] [address] * CRP (acute phase) (06/03/2020 3:16 PM DESIGN QUALITY ENGINEER) Pathologist [facility] C-RP 4.2 <8.0 mg/L [facility] Blood specimen (specimen) 06/03/2020 3:16 PM DESIGN QUALITY ENGINEER 06/03/2020 3:17 PM DESIGN QUALITY ENGINEER Miriam VALLE LAB BLOOD ORDERAB LES Final Result Performing Organization Address [facility] de Phone Number [facility] [address] [place] [address] * Comprehensive metabolic panel (06/03/2020 3:16 PM DESIGN QUALITY ENGINEER) Pathologist [facility] Glucose 82 65 - 99 mg/dL [facility] Comment: ? Fasting reference interval BUN 12 7 - 25 mg/dL [facility] Creatinine 0.91 0.50 - 1.10 mg/dL [facility] eGFR NON-AFR. FAROESE 76 > OR = 60 mL/min/1. 73m2 [facility] EGFR 88 > OR = 60 mL/min/1. 73m2 [facility] BUN/creat ratio NOT APPLICABLE 6 - 22 (calc) [facility] Sodium 138 135 - 146 mmol/L [facility] Potassium, pl 4.1 3.5 - 5.3 mmol/L [facility] Chloride 106 98 - 110 mmol/L [facility] CO2 25 20 - 32 mmol/L [facility] Calcium 9.2 8.6 - 10.2 mg/dL [facility] Protein, sr 6.3 6.1 - 8.1 g/dL [facility] Albumin 4.2 3.6 - 5.1 g/dL [facility] GLOBULIN 2.1 1.9 - 3.7 g/dL (calc) [facility] Alb/glob ratio 2.0 1.0 - 2.5 (calc) [facility] Bilirubin, total 0.4 0.2 - 1.2 mg/dL [facility] Alk phos 54 31 - 125 U/L [facility] AST 15 10 - 35 U/L [facility] ALT (SGPT) 16 6 - 29 U/L [facility] Blood specimen (specimen) 06/03/2020 3:16 PM DESIGN QUALITY ENGINEER 06/03/2020 3:17 PM DESIGN QUALITY ENGINEER Miriam [facility] LAB BLOOD ORDERAB LES Final Result Performing Organization Address [facility] Co de Phone Number [facility] [address] [place] [address] * Protein / creatinine ratio, urine, random (06/03/2020 3:16 PM DESIGN QUALITY ENGINEER) Pathologist [facility] Creatinine, ur 112 20 - 275 mg/dL [facility] Protein/creatin ine ratio 89 21 - 161 mg/g creat [facility] Protein/Creatin ine Ratio 0.089 0.021 - 0.161 mg/mg creat [facility] Protein, ur, quant 10 5 - 24 mg/dL [facility] Urine 06/03/2020 3:16 PM DESIGN QUALITY ENGINEER 06/03/2020 3:17 PM DESIGN QUALITY ENGINEER Miriam [facility] URINE ORDERAB LES Final Result Performing Organization Address [facility]/ZIP Co de Phone Number [facility] [address] [place] [address] * (ABNORMAL) Urinalysis reflex to microscopic and culture Urine, bladder (06/03/2020 3:16 PM DESIGN QUALITY ENGINEER) Color, ur YELLOW YELLOW [facility] Appearance, ur CLEAR CLEAR [facility] Specific gravity 1.017 1.001 - 1.035 [facility] pH, ur 6.5 5.0 - 8.0 [facility] Glucose, ur NEGATIVE NEGATIVE [facility] Bilirubin, ur NEGATIVE NEGATIVE [facility] Ketones, ur NEGATIVE NEGATIVE [facility] Blood, ur 1+(A) NEGATIVE [facility] Protein, ur, quant NEGATIVE NEGATIVE [facility] Nitrites, ur NEGATIVE NEGATIVE [facility] Leukocyte esterase, ur NEGATIVE NEGATIVE [facility] WBC, ur NONE SEEN < OR = 5 /HPF [facility] RBC, ur 0-2 < OR = 2 /HPF [facility] Epithelial cells, squamous, ur 0-5 < OR = 5 /HPF [facility] Bacteria, ur, quant NONE SEEN NONE SEEN /HPF [facility] Hyaline cast NONE SEEN NONE SEEN /LPF [facility] Urine culture [facility] Comment:NO CULTURE INDICATED Urine, bladder 06/03/2020 3: 16 PM DESIGN QUALITY ENGINEER 06/03/2020 3:17 PM DESIGN QUALITY ENGINEER Miriam [facility] MICROBIOLOGY - GENERAL ORDERABLES Final Result [facility] [address] [address] [place] [address] documented in this encounter Visit Diagnoses Diagnosis Psoriatic arthritis (HCC)- Primary Psoriatic arthropathy Osteoporosis without current pathological fracture, unspecified osteoporosis type Encounter for long-term (current) use of medications Encounter for long-term (current) use of other medications Meredith-Danlos disease Meredith-Danlos syndrome Kidney stones Calculus of kidney documented in this encounter Discontinued Medications Medication Sig Discontinue Reason Start Date End Da te traMADoL (ULTRAM) 50 mg tablet Take 1 tablet (50 mg total) by mouth every 8 (eight) hours as needed for pain Reorder 04/29/2020 06/03/2020 secukinumab (COSENTYX SENSOREADY) pen injectorIndications:Psor iatic Arthritis Inject 1 mL (150 mg total) under the skin every 28 (twenty-eight) days 04/28/2020 06/03/2020 abatacept (Orencia ClickJect) 125 mg/mL auto-injectorIndications :Rheumatoid Arthritis Inject 1 mL (125 mg total) under the skin every 7 days Duplicate order 02/23/2020 06/03/2020 documented as of this encounter Care Teams Teasel Gig Operator Relationship Specialty Start Date End Date Bhupinder Tobias MD [address] [place] [address] PCP - General Internal Medicine 06/03/20 Isaiah Quiros MD [address] [facility] [address] [place] [address] Internal Medicine 02/18/17 03/19/21 Cash Heath III, MD [address] [place] [address] Rheumatology 04/12/17 Alex Mahajan MD [address] [place] [address] Referring Physician Internal Medicine 05/07/19 1 Bhupinder Tobias MD [address] [facility] [address] [place] [address] Referring Physician Internal Medicine 06/03/20 1 documented as of this encounter
--- OUTSIDE RECORDS SUMMARY | 2024-04-29 19:23 | XMS_ITS | Encounter Summary ---
Author Organization [facility] Address [address] [place] [address] Phone Care Team Providers Care Coffee Sampler Name Role Phone Isaiah Quiros MD Unavailable Kumar CARRILLO MD, Cash Howard Unavailable [phone] Alex Mahajan MD Unavailable [phone] Bhupinder Tobias MD Unavailable [phone] Bhupinder Tobias MD Primary Care Provider [phone] Reason for Visit * Reason Onset Date Zelalem Sierra Approved 06/10/2020 Eff: 06/07/1919 1 - 06/07/2021 Encounter Details Date Type Department Care Team (Late st Contact Info) Description 06/10/2020 Telephone [facility] [address] [place] [address] Tiara Rainey Approved (Eff: - 06/07/2021 ) Social History Tobacco Use Types Packs/Day Years Used Date Smoking Tobacco: Never Alcohol Use Standard Drinks/Week Comments No 0 (1 standard drink = 0.6 oz pur e alcohol) Comments No Sex and Gender Information Value Date Recorded Sex Assigned at Not on file Legal Sex Female 9:24 PM MILLER WOOD [employer]OUR Gender Identity Female 08/14/2022 11:32 AM CDT Sexual Orientation Straight 02/13/2023 7: 01 AM CDT documented as of this encounter Ordered Prescriptions Prescription Sig Dispense Quantity Refills Last Filled Start Date End Date ustekinumab (Stelara) injection Inject 45 mg SQ day 0, then on day 28 for loading dose. Then inject 45 mg SQ q 12 weeks. 1 mL 06/10/2020 documented in this encounter Miscellaneous Notes * Telephone Encounter - Tiara Rainey - 06/10/2020 8:30 AM CST Stelara approved eff: - 06/07/2021 Pt has to contact frooly to complete copay card registration @ [phone]. Script has to go to [facility]. Left vm to inform pt of status. Provided # to call for copay card. Asked pt to call to schedule teaching appt once she has medication. Script is ready to send. ER WOOD FLOUR documented in this encounter Plan of Treatment Not on file documented as of this encounter Visit Diagnoses Not on filedocumented in this encounter Care Teams Coffee Sampler Relationship Specialty Start Date End Date Bhupinder Tobias MD [address] [place] [address] PCP - General Internal Medicine 06/03/20 Isaiah Quiros MD [address] [facility] [address] [place] [address] Internal Medicine 02/18/17 03/19/21 Cash Heath III, MD [address] [place] [address] Rheumatology 04/12/17 Alex Mahajan MD [address] [place] [address] Referring Physician Internal Medicine 05/07/19 1 Bhupinder Tobias MD [address] [facility] [address] [address] Referring Physician Internal Medicine 06/03/20 1 documented as of this encounter
--- OUTSIDE RECORDS SUMMARY | 2024-04-29 19:23 | XMS_ITS | Encounter Summary ---
Author Organization [facility] Address [address] [place] [address] Phone Care Team Providers Care Operating Room Technologist Name Role Phone Kumar CARRILLO MD, Cash Howard Unavailable [phone] Bhupinder Tobias MD Primary Care Provider [phone] Jorge Aguiar MD Unavailable [phone] Khoa Arias MD Unavailable [phone] Encounter Details Date Type Department Care Team (Late st Contact Info) Description 08/10/2021 9:30 AM CDT Office Visit [facility] [address] [place] [address] Miriam Frye PA [address] [place] [address] Psoriatic arthritis (HCC) (Primary Dx); Encounter for long-term (current) use of medications; Osteoporosis without current pathological fracture, unspecified osteoporosis type; Other chronic pancreatitis (HCC) Social History Tobacco Use Types Packs/Day Years Used Date Smoking Tobacco: Never Alcohol Use Standard Drinks/Week Comments No 0 (1 standard drink = 0.6 oz pur e alcohol) Comments No Sex and Gender Information Value Date Recorded Sex Assigned at Not on file Legal Sex Female 9:24 PM HANDLING TECH Gender Identity Female 08/14/2022 11:32 AM CDT Sexual Orientation Straight 02/13/2023 7: 01 AM CDT documented as of this encounter Last Filed Vital Signs Vital Sign Reading Time Taken Comments Blood Pressure 110/64 08/10/2021 9:47 AM CDT Pulse 80 08/10/2021 9:47 AM CDT Temperature - - Respiratory Rate - - Oxygen Saturation 96% 08/10/2021 9:47 AM CDT Inhaled Oxygen Concentration - - Weight 86.5 kg (190 lb 12.8 oz) 08/10/2021 9:47 AM CDT Height - - Body Mass Index 31.75 07/23/2021 6:44 PM CDT documented in this encounter Progress Notes * Miriam Frye PA - 08/10/2021 9:30 AM CDT Images from the original note were not included. Subjective/Objective Patient ID: Madalyn Smith is a 46 y.o. female. Chief Complaint ra HPI Recently in er again in june for nausea and vomiting, dx with mild chronic pancreatitis. Was advised after er discharge to see her gi but she has not made appt yet. Still has epigastric and lt upperabd pain along with nausea and diarrhea. Taking zofran and it has helped with her nausea. Her lipase was nl 2 weeks ago. No sob, cp, rashes, oral or nose ulcres. Is able to eat and drink as long as she takes zofran every day. Does not drink etoh, does not smoke. Review of Systems Constitutional: Negative for fatigue and fever. HENT: Negative for mouth sores. Respiratory: Negative for cough, chest tightness and shortness of breath. Cardiovascular: Negative for chest pain. Skin: Negative for rash. Physical Exam She appears well-developed and well-nourished. Head: Normocephalic [...] and dry. Psychiatric: Normal mood. Vitals reviewed. Epigastric and luq abd tender on exam, no rebound tenderness. bsx 4. Obese abd. CDAI: 23 Labs Lab Results Component Value Date WBC 15.4 (H) 07/23/2021 HGB 13.3 07/23/2021 HCT 40.9 07/23/2021 MCV 87.8 07/23/2021 Lab Results Component Value Date GLUCOSE 94 07/23/2021 CALCIUM 9.0 07/23/2021 SODIUM 138 07/23/2021 POTASSIUM 3.8 07/23/2021 CO2 25 07/23/2021 CHLORIDE 103 07/23/2021 BUNSER 12 07/23/2021 CREATININE 1.03 07/23/2021 Lab Results Component Value Date ALT 37 07/23/2021 AST 23 07/23/2021 ALKPHOS 91 07/23/2021 BILITOT 0.5 07/23/2021 Lab Results Component Value Date SEDRATE 5 06/28/2021 Lab Results Component Value Date CRP 5.7 06/28/2021 Assessment/Plan Diagnoses and all orders for this visit: Psoriatic arthritis (HCC) (Primary) Assessment & Plan: Mod cdai. Pt can restart orencia but will hold off restarting arava due to hx of elevated lipiase. Advised pt to see dr yepez and her gi dr arias for her pancreatitis . [place] and egd utd and nl in past year per pt. Seen with dr woodruff today. Past serologies: [facility] panel 08/2019---labs reveal positive anti-NETTING WEAVER antibody which is likely a false positive [...] showed osteoporosis [facility] 08/2019---[facility] labs reveal positive anti-NETTING WEAVER antibody which is likely a false positive [...] Taking ca + vit d 1200mg qd. Other chronic pancreatitis (HCC) - Amylase; Future - Lipase; Future - Smooth muscle antibody, qualitative; Future - Mitochondrial antibodies, qualitative; Future Cosigned by Cash Woodruff III, MD at 08/10/2021 4:05 PM CDT documented in this encounter Miscellaneous Notes * Assessment & Plan Note - Miriam Frye PA - 08/10/2021 8:09 AM CDTAssociated Problem(s): Psoriatic arthritis (HCC) Images from the original note were not included. Mod cdai. Pt can restart orencia but will hold off restarting arava due to hx of elevated lipiase. Advised pt to see dr yepez and her gi dr arias for her pancreatitis . [place] and egd utd and nl in past year per pt. Seen with dr woodruff today. Past serologies: [facility] panel 08/2019---labs reveal positive anti-NETTING WEAVER antibody which is likely a false positive due tonegative ASHLEY. ?? RF neg but has a possible family hx of psoriatic arthritis (father) so if she develops psoriasis diagnosis will change to psoriatic arthritis. Rt hand US 09/2019 showed: ??F/u 1 month. * Assessment & Plan Note - Miriam Frye PA - 08/10/2021 8:09 AM CDTAssociated Problem(s): Osteoporosis without current pathological fracture bds checked by pcp in past, is taking ca and vit d and pcp checked vit D and PTH per pt was wnl. Her pcp started her on alendronate 70mg po qweek. Taking ca + vit d 1200mg qd. * Assessment & Plan Note - Miriam Frye PA - 08/10/2021 8:09 AM CDTAssociated Problem(s): Encounter for long-term (current) [...] showed osteoporosis [facility] 08/2019---[facility] labs reveal positive anti-NETTING WEAVER antibody which is likely a false positive due tonegative ASHLEY. Her father had psoriasis, pt changed from ra to PsA on 03/25/2020. ?? documented in this encounter Plan of Treatment Scheduled Orders Name Type Priority Associated Diagnoses Orde r Schedule Amylase Lab Routine Other chronic pancreatitis (HCC) Expected: 08/10/2021, Expires: 08/10/2022 Lipase Lab Routine Other chronic pancreatitis (HCC) Expected: 08/10/2021, Expires: 08/10/2022 Smooth muscle antibody, qualitative Lab Routine Other chronic pancreatitis (HCC) Expected: 08/10/2021, Expires: 08/10/2022 Mitochondrial antibodies, qualitative Lab Routine Other chronic pancreatitis (HCC) Expected: 08/10/2021, Expires: 08/10/2022 documented as of this encounter Procedures Procedure Name Priority Date/Time Associated Diagnosis Comments SMOOTH MUSCLE ANTIBODY, QUALITATIVE Routine 08/10/2021 11:05 AM CDT MITOCHONDRIAL ANTIBODIES, QUALITATIVE Routine 08/10/2021 11:05 AM CDT CBC WITH AUTO DIFFERENTIAL Routine 08/10/2021 11:05 AM CDT Psoriatic arthritis (HCC) Encounter for long-term (current) use of medications ERYTHROCYTE SEDIMENTATION RATE Routine 08/10/2021 11:05 AM CDT Psoriatic arthritis (HCC) Encounter for long-term (current) use of medications CRP (ACUTE PHASE) Routine 08/10/2021 11: 05 AM CDT Psoriatic arthritis (HCC) Encounter for long-term (current) use of medications LIPASE Routine 08/10/2021 11:05 AM CDT AMYLASE Routine 08/10/2021 11:05 AM CDT COMPREHENSIVE METABOLIC PANEL Routine 08/10/2021 11:05 AM CDT Psoriatic arthritis (HCC) Encounter for long-term (current) use of medications documented in this encounter Results * Lipase (08/10/2021 11:05 AM CDT) LIPASE 53 7 - 60 U/L [facility] 08/10/2021 11:0 5 AM CDT 08/10/2021 11:06 AM CDT Miriam VALLE LAB BLOOD ORDERAB LES Final Result Performing Organization Address City/[facility]/ZIP Co de Phone Number [facility] [address] [place] [address] * Amylase (08/10/2021 11:05 AM CDT) Amylase 62 21 - 101 U/L [facility] 08/10/2021 11:0 5 AM CDT 08/10/2021 11:06 AM CDT Miriam VALLE LAB BLOOD ORDERAB LES Final Result Performing Organization Address [facility] Co de Phone Number [facility] [address] [place] [address] * Mitochondrial antibodies, qualitative (08/10/2021 11:05 AM CDT) MITOCHONDRIAL AB SCREEN NEGATIVE NEGATIVE [facility] 08/10/2021 11:0 5 AM CDT 08/10/2021 11:06 AM CDT Miriam VALLE LAB BLOOD ORDERAB LES Final Result Performing Organization Address City/[facility]/ZIP Co de Phone Number [facility] [address] [place] [address] * Smooth muscle antibody, qualitative (08/10/2021 11:05 AM CDT) ACTIN (SMOOTH MUSCLE) ANTIBODY (IGG) <20 <20 U [facility] Comment: Reference Range: ?? <20 U: Negative >or=20 U: Positive ? Antibodies recognizing actin are the main component of smooth muscle antibodies associated with auto- immune liver disease. Actin antibodies are found in approximately 75% of patients with autoimmune hepatitis (AIH) type 1, approximately 65% of patients with autoimmune cholangitis, approximately 30% of patients with primary biliary cirrhosis and approximately 2% of healthy controls. High values are closely correlated with AIH type 1. 08/10/2021 11:0 5 AM CDT 08/10/2021 11:06 AM CDT Miriam VALLE LAB BLOOD ORDERAB LES Final Result [facility] [address] [facility] [place] [address] * Erythrocyte sedimentation rate (08/10/2021 11:05 AM CDT) Pathologist [facility] Erythrocyte sedimentation rate 6 < OR = 20 mm/h [facility] Blood specimen (specimen) 08/10/2021 11:05 AM CDT 08/10/2021 11:06 AM CDT Miriam VALLE LAB BLOOD ORDERAB LES Final Result [facility] [address] [address] [address] * (ABNORMAL) CRP (acute phase) (08/10/2021 11:05 AM CDT) C-RP 19.3(H) <8.0 mg/L [facility] Blood specimen (specimen) 08/10/2021 11:05 AM CDT 08/10/2021 11:06 AM CDT us Miriam VALLE LAB BLOOD ORDERAB LES Final Result [facility] [address] [address] [address] * Comprehensive metabolic panel (08/10/2021 11:05 AM CDT) Glucose 84 65 - 99 mg/dL [facility] Comment: ? Fasting reference interval BUN 11 7 - 25 mg/dL [facility] Creatinine 0.91 0.50 - 1.10 mg/dL [facility] eGFR NON-AFR. CUBAN 75 > OR = 60 mL/min/1. 73m2 [facility] EGFR 87 > OR = 60 mL/min/1. 73m2 [facility] BUN/creat ratio NOT APPLICABLE 6 - 22 (calc) [facility] Sodium 137 135 - 146 mmol/L [facility] Potassium, pl 3.9 3.5 - 5.3 mmol/L [facility] Chloride 102 98 - 110 mmol/L [facility] CO2 29 20 - 32 mmol/L [facility] Calcium 9.1 8.6 - 10.2 mg/dL [facility] Protein, sr 6.8 6.1 - 8.1 g/dL [facility] Albumin 4.1 3.6 - 5.1 g/dL [facility] GLOBULIN 2.7 1.9 - 3.7 g/dL (calc) [facility] Alb/glob ratio 1.5 1.0 - 2.5 (calc) [facility] Bilirubin, total 0.5 0.2 - 1.2 mg/dL [facility] Alk phos 76 31 - 125 U/L [facility] AST 11 10 - 35 U/L [facility] ALT (SGPT) 15 6 - 29 U/L [facility] Blood specimen (specimen) 08/10/2021 11:05 AM CDT 08/10/2021 11:06 AM CDT us Miriam VALLE LAB BLOOD ORDERAB LES Final Result [facility] [address] [address] [address] * (ABNORMAL) CBC with auto differential (08/10/2021 11:05 AM CDT) WBC 11.3(H) 3.8 - 10.8 Thousand/u L [facility] RBC, POC 4.68 3.80 - 5.10 Million/uL [facility] Hgb 13.6 11.7 - 15.5 g/dL [facility] Hct 42.3 35.0 - 45.0 % [facility] MCV 90.4 80.0 - 100.0 fL [facility] MCH 29.1 27.0 - 33.0 pg [facility] MCHC 32.2 32.0 - 36.0 g/dL [facility] Rdw 13.8 11.0 - 15.0 % [facility] Platelets 311 140 - 400 Thousand/u L [facility] MPV 9.4 7.5 - 12.5 fL [facility] Neutrophils, abs 9,164(H) 1,500 - 7,800 cells/uL [facility] Lymphocytes, abs 1,074 850 - 3,900 cells/uL [facility] Monocyte abs 791 200 - 950 cells/uL [facility] Eosinophils, abs 170 15 - 500 cells/uL [facility] Basophils, abs 102 0 - 200 cells/uL [facility] Neutrophils 81.1 % [facility] Lymphocyte pct 9.5 % [facility] Monocytes 7.0 % [facility] Eosinophils 1.5 % [facility] Basophils 0.9 % [facility] Blood specimen (specimen) 08/10/2021 11:05 AM CDT 08/10/2021 11:06 AM CDT Miriam VALLE LAB BLOOD ORDERAB LES Final Result [facility] [address] [place] [address] documented in this encounter Visit Diagnoses Diagnosis Psoriatic arthritis (HCC)- Primary Psoriatic arthropathy Encounter for long-term (current) use of medications Encounter for long-term (current) use of other medications Osteoporosis without current pathological fracture, unspecified osteoporosis type Other chronic pancreatitis (HCC) documented in this encounter Care Teams Operating Room Technologist Relationship Specialty Start Date End Date Bhupinder Tobias MD [address] [address] PCP - General Internal Medicine 06/03/20 Cash Woodruff III, MD [address] [address] Rheumatology 04/12/17 Jorge Aguiar MD [address] [address] Consulting Physician Urology 11/10/20 Khoa Arias MD [address] [address] Referring Physician Gastroenterology 03/20/21 documented as of this encounter
--- OUTSIDE RECORDS SUMMARY | 2024-04-29 19:23 | XMS_ITS | Encounter Summary ---
Author Organization [facility] Address [address] [place] [address] Phone Care Team Providers Care Library Circulation Clerk Name Role Phone Isaiah Quiros MD Unavailable Kumar CARRILLO MD, Cash Howard Unavailable [phone] Alex Mahajan MD Unavailable [phone] Bhupinder Tobias MD Unavailable [phone] Bhupinder Tobias MD Primary Care Provider [phone] Jorge Aguiar MD Unavailable [phone] Encounter Details Date Type Department Care Team (Late st Contact Info) Description 03/15/2021 Orders Only [facility] [address] [place] [phone] Miriam Frye PA [address] [place] [address] Abdominal pain (Primary Dx); Elevated lipase Social History Tobacco Use Types Packs/Day Years Used Date Smoking Tobacco: Never Alcohol Use Standard Drinks/Week Comments No 0 (1 standard drink = 0.6 oz pur e alcohol) Comments No Sex and Gender Information Value Date Recorded Sex Assigned at Not on file Legal Sex Female 9:24 PM COMMERCIAL PEST CONTROL TECHNICIAN Gender Identity Female 08/14/2022 11:32 AM CDT Sexual Orientation Straight 02/13/2023 7: 01 AM CDT documented as of this encounter Miscellaneous Notes * Result Encounter Note - Miriam Frye PA - 03/20/2021 8:49 AM CST Lipase still mildly elevated, do not restart imuran but if abd discomfort still resolved can restart orencia. Needs to f/u with her gi or the elevated lipase. F/u in 1month on a day dr bill is here to see if we need to change imuran to something else. ERCIAL PEST CONTROL TECHNICIAN documented in this encounter Plan of Treatment Scheduled Orders Name Type Priority Associated Diagnoses Orde r Schedule Amylase Lab Routine Abdominal pain Elevated lipase Expected: 03/15/2021, Expires: 03/15/2022 Lipase Lab Routine Abdominal pain Elevated lipase Expected: 03/15/2021, Expires: 03/15/2022 documented as of this encounter Procedures Procedure Name Priority Date/Time Associated Diagnosis Comments CBC WITH AUTO DIFFERENTIAL Routine 03/15/2021 2:39 PM COMMERCIAL PEST CONTROL TECHNICIAN Abdominal pain Elevated lipase ERYTHROCYTE SEDIMENTATION RATE Routine 03/15/2021 2:39 PM COMMERCIAL PEST CONTROL TECHNICIAN Abdominal pain Elevated lipase CRP (ACUTE PHASE) Routine 03/15/2021 2:3 9 PM COMMERCIAL PEST CONTROL TECHNICIAN Abdominal pain Elevated lipase LIPASE Routine 03/15/2021 2:39 PM COMMERCIAL PEST CONTROL TECHNICIAN AMYLASE Routine 03/15/2021 2:39 PM COMMERCIAL PEST CONTROL TECHNICIAN COMPREHENSIVE METABOLIC PANEL Routine 03/15/2021 2:39 PM COMMERCIAL PEST CONTROL TECHNICIAN Abdominal pain Elevated lipase documented in this encounter Results * (ABNORMAL) Lipase (03/15/2021 2:39 PM COMMERCIAL PEST CONTROL TECHNICIAN) LIPASE 65(H) 7 - 60 U/L [facility] 03/15/2021 2:39 PM COMMERCIAL PEST CONTROL TECHNICIAN 03/15/2021 2:40 PM COMMERCIAL PEST CONTROL TECHNICIAN Miriam VALLE LAB BLOOD ORDERAB LES Final Result Performing Organization Address [facility] Co de Phone Number [facility] [address] [place] [address] * Amylase (03/15/2021 2:39 PM COMMERCIAL PEST CONTROL TECHNICIAN) Pathologist [facility] Amylase 64 21 - 101 U/L [facility] 03/15/2021 2:39 PM COMMERCIAL PEST CONTROL TECHNICIAN 03/15/2021 2:40 PM COMMERCIAL PEST CONTROL TECHNICIAN Miriam VALLE LAB BLOOD ORDERAB LES Final Result Performing Organization Address [facility] Phone Number [facility] [address] [place] [address] * Erythrocyte sedimentation rate (03/15/2021 2:39 PM COMMERCIAL PEST CONTROL TECHNICIAN) [facility] Erythrocyte sedimentation rate TNP mm/h [facility] Comment: TEST NOT PERFORMED Quantity not sufficient. Blood specimen (specimen) 03/15/2021 2:39 PM COMMERCIAL PEST CONTROL TECHNICIAN 03/15/2021 2:40 PM COMMERCIAL PEST CONTROL TECHNICIAN Miriam VALLE LAB BLOOD ORDERAB LES Final Result Performing Organization Address [facility] de Phone Number [facility] [address] [place] [address] * (ABNORMAL) CRP (acute phase) (03/15/2021 2:39 PM COMMERCIAL PEST CONTROL TECHNICIAN) Pathologist [facility] C-RP 13.0(H) <8.0 mg/L [facility] Blood specimen (specimen) 03/15/2021 2:39 PM COMMERCIAL PEST CONTROL TECHNICIAN 03/15/2021 2:40 PM COMMERCIAL PEST CONTROL TECHNICIAN Miriam VALLE LAB BLOOD ORDERAB LES Final Result [facility] [address] [address] [address] * Comprehensive metabolic panel (03/15/2021 2:39 PM COMMERCIAL PEST CONTROL TECHNICIAN) Glucose 83 65 - 99 mg/dL [facility] Comment: ? Fasting reference interval BUN 17 7 - 25 mg/dL [facility] Creatinine 0.93 0.50 - 1.10 mg/dL [facility] eGFR NON-AFR. HUNGARIAN 74 > OR = 60 mL/min/1. 73m2 [facility] EGFR 85 > OR = 60 mL/min/1. 73m2 [facility] BUN/creat ratio NOT APPLICABLE 6 - 22 (calc) [facility] Sodium 137 135 - 146 mmol/L [facility] Potassium, pl 4.9 3.5 - 5.3 mmol/L [facility] Chloride 105 98 - 110 mmol/L [facility] CO2 21 20 - 32 mmol/L [facility] Calcium 8.9 8.6 - 10.2 mg/dL [facility] Protein, sr 6.6 6.1 - 8.1 g/dL [facility] Albumin 4.0 3.6 - 5.1 g/dL [facility] GLOBULIN 2.6 1.9 - 3.7 g/dL (calc) [facility] Alb/glob ratio 1.5 1.0 - 2.5 (calc) [facility] Bilirubin, total 0.6 0.2 - 1.2 mg/dL [facility] Alk phos 78 31 - 125 U/L [facility] AST 25 10 - 35 U/L [facility] ALT (SGPT) 25 6 - 29 U/L [facility] Blood specimen (specimen) 03/15/2021 2:39 PM COMMERCIAL PEST CONTROL TECHNICIAN 03/15/2021 2:40 PM COMMERCIAL PEST CONTROL TECHNICIAN us Miriam VALLE LAB BLOOD ORDERAB LES Final Result [facility] [address] [address] [place] [place] [address] * CBC with auto differential (03/15/2021 2:39 PM COMMERCIAL PEST CONTROL TECHNICIAN) [facility] WBC 9.7 3.8 - 10.8 Thousand/u L [facility] RBC, POC 4.53 3.80 - 5.10 Million/uL [facility] Hgb 13.1 11.7 - 15.5 g/dL [facility] Hct 40.8 35.0 - 45.0 % [facility] MCV 90.1 80.0 - 100.0 fL [facility] MCH 28.9 27.0 - 33.0 pg [facility] MCHC 32.1 32.0 - 36.0 g/dL [facility] Rdw 13.1 11.0 - 15.0 % [facility] Platelets 329 140 - 400 Thousand/u L [facility] MPV 9.9 7.5 - 12.5 fL [facility] Neutrophils, abs 7,382 1,500 - 7,800 cells/uL [facility] Lymphocytes, abs 1,445 850 - 3,900 cells/uL [facility] Monocyte abs 611 200 - 950 cells/uL [facility] Eosinophils, abs 194 15 - 500 cells/uL [facility] Basophils, abs 68 0 - 200 cells/uL [facility] Neutrophils 76.1 % [facility] Lymphocyte pct 14.9 % [facility] Monocytes 6.3 % [facility] Eosinophils 2.0 % [facility] Basophils 0.7 % [facility] Blood specimen (specimen) 03/15/2021 2:39 PM COMMERCIAL PEST CONTROL TECHNICIAN 03/15/2021 2:40 PM COMMERCIAL PEST CONTROL TECHNICIAN Miriam VALLE LAB BLOOD ORDERAB LES Final Result [facility] [address] [place] [address] documented in this encounter Visit Diagnoses Diagnosis Abdominal pain- Primary Abdominal pain, unspecified site Elevated lipase documented in this encounter Care Teams Library Circulation Clerk Relationship Specialty Start Date End Date Bhupinder Tobias MD [address] [place] [address] PCP - General Internal Medicine 06/03/20 Isaiah Quiros MD [address] [facility] [address] [place] [address] Internal Medicine 02/18/17 03/19/21 Cash Heath III, MD [address] [place] [address] Rheumatology 04/12/17 Alex Mahajan MD [address] [place] [address] Referring Physician Internal Medicine 05/07/19 1 Bhupinder Tobias MD [address] [place] [address] Referring Physician Internal Medicine 06/03/20 1 Jorge Aguiar MD [address] [place] [address] Consulting Physician Urology 11/10/20 documented as of this encounter
--- OUTSIDE RECORDS SUMMARY | 2024-04-29 19:23 | XMS_ITS | Encounter Summary ---
Author Organization [facility] Address [address] [place] [id number] Phone Care Team Providers Care Dough Sheeter Name Role Phone Kumar CARRILLO MD, Cash Howard Unavailable [phone] Bhupinder Tobias MD Primary Care Provider [phone] Jorge Aguiar MD Unavailable [phone] Khoa Arias MD Unavailable [phone] Encounter Details Date Type Department Care Team (Late st Contact Info) Description 05/05/2021 Telephone [facility] [address] [place] [phone] Kraig Garcia Social History Tobacco Use Types Packs/Day Years Used Date Smoking Tobacco: Never Alcohol Use Standard Drinks/Week Comments No 0 (1 standard drink = 0.6 oz pur e alcohol) Comments No Sex and Gender Information Value Date Recorded Sex Assigned at Not on file Legal Sex Female 9:24 PM FLATBED DRIVER Gender Identity Female 08/14/2022 11:32 AM CDT Sexual Orientation Straight 02/13/2023 7: 01 AM CDT documented as of this encounter Miscellaneous Notes * Telephone Encounter - Kraig Garcia - 05/05/2021 9:[address] Arias's office, spoke to Omayra. Labs done on 05/02 and still pending. BED DRIVER * Telephone Encounter - Willie Garciaconchis - 05/05/2021 9:37 AM CST ----- Message from LEONARD Coreas sent at 05/05/2021 9:22 AM FLATBED DRIVER ----- Regarding: GI results Pt awaiting results of labs from GI Dr. Arias at [facility], can you call and see if anything is available yet? BED DRIVER documented in this encounter Plan of Treatment Not on file documented as of this encounter Visit Diagnoses Not on filedocumented in this encounter Care Teams Dough Sheeter Relationship Specialty Start Date End Date Bhupinder Tobias MD [address] [address] PCP - General Internal Medicine 06/03/20 Cash Heath III, MD [address] [address] Rheumatology 04/12/17 Jorge Aguiar MD [facility] [address] [address] Consulting Physician Urology 11/10/20 Khoa Arias MD [facility] [address] [address] Referring Physician Gastroenterology 03/20/21 documented as of this encounter
--- OUTSIDE RECORDS SUMMARY | 2024-04-29 19:23 | XMS_ITS | Encounter Summary ---
Author Organization [facility] Address [address] [place] [address] Phone Care Team Providers Care Supervisor Dimension Warehouse Name Role Phone Isaiah Quiros MD Unavailable Isaiah Quiros MD Primary Care Provider [phone] Kumar CARRILLO MD, Cash Howard Unavailable [phone] Alex Mahajan MD Unavailable [phone] Reason for Visit * Reason Onset Date Comments Cosentyx Maintenance Dose ApprovedOther] 021 Eff: 04/11/2020 - 04/11/2021 Encounter Details Date Type Department Care Team (Late st Contact Info) Description 04/27/2020 Telephone [facility] [address] [place] [phone] Tiara Rainey Cosentyx Maintenance Dose ApprovedOther] (Eff: 04/11/2020 - 04/11/2021 ) Social History Tobacco Use Types Packs/Day Years Used Date Smoking Tobacco: Never Alcohol Use Standard Drinks/Week Comments No 0 (1 standard drink = 0.6 oz pur e alcohol) Comments No Sex and Gender Information Value Date Recorded Sex Assigned at Not on file 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 Since ins will not cover the loading dose we will supply samples to get her started. Script has to go to [facility]. Pt has to contact [employer] @ [phone] for copay support. Spoke w/pt to inform her of status. She will call for copay card. Note given to Billy asking her to call pt to schedule teaching visit since we are starting w/samples. Set 5 samples aside for pt to cover loading dose. Script ready to send. [employer] * Telephone Encounter - Tiara Rainey - 04/27/2020 3:05 PM CST Denial received. When reviewed the only thing denied is the loading dose. It states she can get 1 pen per 28 days starting 04/11/2020 - 04/11/2021. Spoke w/Shantell at [facility] & faxed the paperwork to her. They will see if they can determine where she has to fill the maintenance dose. We can supply pt w/samples for the loading dose. [employer]TER * Telephone Encounter - Tiara Rainey - 04/27/2020 11:45 AM CST Per Cover My Meds the Cosentyx has been denied & the denial was sent to our office however we have not received denial. Called [employer] ([phone]) & spoke w/Rosalba. She reports it was denied as we are asking for too high of a dose. I explained we have only requested the lowestdose available. She said appeals are handled by the [employer] of [place]. She will send a copy of the denial w/appeal info. [employer] P[employer]TER documented in this encounter Plan of Treatment Not on file documented as of this encounter Visit Diagnoses Not on filedocumented in this encounter Care Teams Supervisor [employer]ension Warehouse Relationship Specialty Start Date End Date Isaiah Quiros MD [address] [place] [address] PCP - General Internal Medicine 04/01/17 06/02/20 Isaiah Quiros MD [address] [place] [address] Internal Medicine 02/18/17 03/19/21 Cash Heath III, MD [address] [place] [address] Rheumatology 04/12/17 Alex Mahajan MD [address] [place] [address] Referring Physician Internal Medicine 05/07/19 1 documented as of this encounter
--- OUTSIDE RECORDS SUMMARY | 2024-04-29 19:23 | XMS_ITS | Encounter Summary ---
Author Organization [facility] Address [address] [place] [address] Phone Care Team Providers Care Medical Scientific Officer Name Role Phone Kumar CARRILLO MD, Cash Howard Unavailable [phone] Bhupinder Tobias MD Primary Care Provider [phone] Jorge Aguiar MD Unavailable [phone] Khoa Arias MD Unavailable [phone] Reason for Visit * Reason Onset Date Comments GI Preprocedure 08/30/2021 Encounter Details Date Type Department Care Team (Late st Contact Info) Description 08/30/2021 Telephone [facility] [address] [facility] [address] [place] [address] Nikki Sterling RN GI Preprocedure Social History Tobacco Use Types Packs/Day Years [...] on file 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 Wt Readings from Last 1 Encounters: 08/30/21 89.3 kg (196 lb 12.8 oz) [] Patient had GI procedure/CPAP clinic/GI clinic <30 days (if Yes, no medical screening questions needed unless new clinical issues in last 30 days) Medical screening questions: BMI/Weight: NA CARDIOVASCULAR: None RESPIRATORY/LUNG: None RENAL/LIVER/GI: None BLEEDING/CLOTTING: None NEUROLOGICAL: None ENDOCRINE: None PRIOR PROCEDURE ISSUES: None HEEL PRICKER/: NA IMPLANTS.: None Notes: DIABETIC MEDS Y/N: No/NA []Yes- Discuss diabetes medication management with prescribing physician DIALYSIS Y/N: No/NA []HD- Schedule on non-HD day, see protocol []PD- Drain PD fluid AM of procedure, if colonoscopy order AB ppx, see protocol PACEMAKER/ICD Y/N: No/NA Device info: Last documented device check: Any shocks since last cards visit (if yes must see cardiology for procedure clearance): BLOOD THINNERS/ANTICOAG/ANTIPLATELET (BESIDES ASA) Medication: NONE Physician contacted for hold order/date sent: Hold order Method sent: Date hold received: Hold instructions: CONTINUE ASPIRIN INFORMATION REQUESTED []Imaging: []Medical Progress Note/H&P []Medication list []Other: PATIENT OPTIMIZATION []Physician reviewing escalation: []CPAP: Date scheduled: Outcome : [] Location limitations: Scheduling Scheduling location limitations: Trucker Hand needed [] NA Language: POA [] NA Name: SPECIAL PROCEDURE INSTRUCTIONS Scheduling Notes Procedure information Date of procedure: 08.31.2021 Time of procedure: 1030 Arrival time:0930 Location: [facility] Proceduralist: Dr. 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 [x]Post anesthesia restrictions given [x]NPO Instructions: [x]Diet Instructions: [x]Take non-blood thinner prescription meds that morning [x]Bring med list, photo ID, insurance card, no valuables [x]Bring COVID vaccination card (if vaccinated) Bowel Prep Prep prescribed: NA Method of Bowel Prep (RX): NA documented in this encounter Plan of Treatment Not on file documented as of this encounter Visit Diagnoses Diagnosis Acute pancreatitis, unspecified complication status, unspecified pancreatitis type- Primary documented in this encounter Orders Case Request Count Last Ordered Date First Orde red Date CASE REQUEST GI 1 08/30/2021 documented in this encounter Care Teams Medical Scientific Officer Relationship Specialty Start Date End Date Bhupinder Tobias MD [address] [place] [address] [place] [address] PCP - General Internal Medicine 06/03/20 Cash Heath III, MD [address] [address] Rheumatology 04/12/17 Jorge Aguiar MD [address] [place] [address] Consulting Physician Urology 11/10/20 Khoa Arias MD [address] [place] [address] Referring Physician Gastroenterology 03/20/21 documented as of this encounter
--- OUTSIDE RECORDS SUMMARY | 2024-04-29 19:23 | XMS_ITS | Encounter Summary ---
Author Organization [facility] Address [address] [place] [address] Phone Care Team Providers Care Latex Caster Name Role Phone Kumar CARRILLO MD, Cash Howard Unavailable [phone] Bhupinder Tobias MD Primary Care Provider [phone] Jorge Aguiar MD Unavailable [phone] Khoa Arias MD Unavailable [phone] Reason for Visit * Gastroenterology (Routine) - Closed Specialty Diagnoses / Procedures Referred By Contac t Referred To Contact Gastroenterology Diagnoses Acute pancreatitis without infection or necrosis, unspecified pancreatitis type Other chronic pancreatitis (HCC) Bhupinder Tobias MD [address] [facility] [address] [place] [address] Phone: tel: fax: [facility] (All Locations) Referral ID Status Reason Start Date Expiration Date V isits Requested Visits Authorized [id number] Closed Specialty Services Required 08/10/2021 09/09/2022 99 [phone] Encounter Details Date Type Department Care Team (Late st Contact Info) Description 08/30/2021 1:00 PM CDT Office Visit [facility] Gastroenterology [address] [place] [address] Medical Office Building [address], [address] [place] [address] Devin Miller MD [address] [place] [address] Abdominal pain (Primary Dx); Acute pancreatitis without infection or necrosis, unspecified pancreatitis type; Other chronic pancreatitis (HCC); 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 syndrome with constipation Social History Tobacco Use Types Packs/Day Years [...] on file 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 Gender Identity Female 08/14/2022 11:32 AM CDT Sexual Orientation Straight 02/13/2023 7: 01 AM CDT documented as of this encounter Last Filed Vital Signs Vital Sign Reading Time Taken Comments Blood Pressure 136/87 08/30/2021 1:14 PM CDT Pulse 82 08/30/2021 1:14 PM CDT Temperature 36.7 ??C (98 ??F) 08/30/2021 1:14 PM CDT Respiratory Rate - - Oxygen Saturation - - Inhaled Oxygen Concentration - - Weight 89.3 kg (196 lb 12.8 oz) 08/30/2021 1:14 PM CDT Height 167.6 cm (5' 6 ) 08/30/2021 1:14 PM CDT Body Mass Index 31.76 08/30/2021 1:14 PM CDT documented in this encounter Progress Notes * Jakc Adhikari NP - 08/30/2021 1:00 PM CDT Subjective NAME: Madalyn Smith : 1975 DOS: 08/30/2021 Referred here Primary Care Physician: Bhupinder Tobias MD Consult requested by: Bhupinder Tobias MD Chief Complaint: Pancreatitis HPI 46-year-old female with a past medical history of Meredith-Danlos syndrome, psoriasis, migraine, anxiety, kidney stones, IBS C (treated Amitiza), elevated lipase and abdominal pain. Mrs. Smith [...] lipase levels. She was told she has chronic pancreatitis. Based on records provided to us, the lipase has been less than 3 times the upper limit of normal however persistent. Basedon records also available to us and report from the patient, she has undergone multiple cross-sectional imaging studies including MRCP, CT and CTA that has not shown any abnormality to suggest pancrea s inflammation, underlying pathology or changes of chronic pancreatitis. She reports having been treated with neuro modulating agents such as Lyrica, gabapentin that did not help her symptoms, currently Cymbalta and now [place]orah 5/325 1 tablet every 4 hours (since 05/2021). Also at one point was recommended to try nortriptyline however she read the side effect profile and decided not to take the med.She is currently utilizing dicyclomine for her abdominal pain symptoms as well. She reports that this has not helped her symptoms. Her cash office worker felt that the elevated lipase symptoms possibly could have been caused by azathioprine and this was stopped approximately 4 months ago. Despite this, her lipase remains elevated and her pain has not changed. She reports a history of IBS C for which he has been treated with Amitiza successfully. Since the onset of abdominal pain, she is having intermittent diarrhea when the pain is at its worst and holds her Amitiza on those days. Otherwise she denies fever, chills, jaundice, bloody/tarry stools or unexplained weight loss. Past Medical History: Diagnosis Date ??? Diverticulitis ??? Meredith-Danlos syndrome ??? Hemorrhoid ??? IBS (irritable bowel syndrome) ??? Kidney stone ??? Migraine ??? RA (rheumatoid arthritis) ([facility]) Patient Active Problem List Diagnosis ??? Kidney [...] hip ??? Abdominal pain ??? Acute pancreatitis Allergies: Ibuprofen Current Outpatient Medications Medication Sig Dispense Refill ??? alendronate (FOSAMAX) 70 mg tablet 1 ??? ALPRAZolam (XANAX) 1 mg tablet Take 1 mg by mouth 3 (three) times a day ??? AMITIZA 24 mcg capsule TK ONE C PO BID WF AND WATER 1 ??? buPROPion XL (WELLBUTRIN XL) 300 mg 24 hr tablet Take 300 mg by mouth ??? diclofenac sodium 20 mg/gram /actuation(2 %) solution in metered-dose pump Apply 40 mg topically 2 (two) times a day 112 g 1 ??? dicyclomine (BENTYL) 10 mg capsule Take 10 mg by mouth every 6 hours as needed ??? DULoxetine DR (CYMBALTA) 60 mg capsule 60 mg daily ??? HYDROcodone-acetaminophen (NORCO) 5-325 mg per tablet Take 1 tablet by mouth every 4 (four) hours as needed for pain Do not exceed 8 tablets/day. (Patient taking differently: Take 1 tablet by mouth every 4 (four) hours as needed for pain Do not exceed 8 tablets/day. Patient reports that she is now on 10-325) 10 tablet 0 ??? ondansetron ODT (ZOFRAN-ODT) 4 mg disintegrating tablet Dissolve 1 tablet for mild to moderate nausea or vomiting or 2 tablets for severe nausea or vomiting oral twice a day as needed. 15 tablet 0 ??? ondansetron ODT (ZOFRAN-ODT) 8 mg disintegrating tablet DISSOLVE 1 TABLET(8 MG) ON THE TONGUE EVERY 8 HOURS NEEDED FOR NAUSEA OR VOMITING 60 tablet 0 ??? pantoprazole DR (PROTONIX) 40 mg EC tablet TAKE 1 TABLET(40 MG) BY MOUTH DAILY 30 MINUTES BEFORE BREAKFAST ??? polyethylene glycol (MIRALAX) 17 gram/dose powder Take 17 g by mouth 2 (two) times a day as needed ??? potassium citrate ER (UROCIT-K) 15 mEq tablet extended release TK 1 T PO BID 6 ??? propranoloL (INDERAL) 10 mg tablet Take 10 mg by mouth daily ??? Saccharomyces boulardii (FLORASTOR) 250 mg capsule Take 250 mg by mouth ??? SUMAtriptan (IMITREX) 50 mg tablet TK 1 T PO AOS OF MIGRAINE. MAY REPEAT AFTER 2 H IF MERCADO RETURNS. MAXIMUM 4 TS IN 24 H 0 ??? tamsulosin (FLOMAX) 0.4 mg extended release capsule Take 1 capsule (0.4 mg total) by mouth daily 30 capsule 0 ??? traZODone (DESYREL) 100 mg tablet Take 100 mg by mouth ??? triamcinolone (KENALOG) 0.1 % paste Apply 0.5 inches to teeth 2 (two) times a day 15 g 0 ??? leflunomide (ARAVA) 20 mg tablet Take 1 tablet (20 mg total) by mouth daily (Patient not taking: Reported on 08/30/2021) 90 tablet 1 ??? linaclotide (LINZESS) 145 mcg capsule Take 145 mcg by mouth (Patient not taking: Reported on 08/30/2021) ??? sucralfate (CARAFATE) suspension 1 gram/10 mL TAKE 10 ML BY MOUTH FOUR TIMES DAILY BEFORE MEALSAND NIGHTLY (Patient not taking: Reported on 08/30/2021) No current facility-administered medications for this visit. Family History Problem Relation Age of Onset [...] Smoker Quit date: 2013 Years since quittin.3 Vaping Use ??? Vaping Use: Every day ??? Substances: Flavoring Substance Use Topics ??? Alcohol use: No ??? Drug use: Never Past Surgical History: Procedure Laterality Date ??? SECTION ??? FACIAL SURGERY ??? KNEE SURGERY knee surgery ??? LITHOTRIPSY ??? TONSILLECTOMY ROS As outlined in HPI. Other pertinent positives include Chills, lack of energy, lack of appetite, tiredness, weakness, weight loss, change in vision, hoarseness, ringing in the ears, heart palpitations, arthritis, back pain, joint pain, bruising, migraine, anxiety, memory loss and under the care of a mental health professional.. Vital Signs BP 136/87 Pulse 82 Temp 36.7 ??C (98 ??F) Ht 167.6 cm (5' 6 ) Wt 89.3 kg (196 lb 12.8 oz) BMI 31.76 kg/m?? Physical Exam GENERAL: no acute distress and obese female HEENT: unremarkable LUNGS: clear to auscultation bilaterally CARDIOVASCULAR: regular rate and rhythm ABDOMEN: Soft and nondistended. Tenderness to the epigastric and left upper quadrant to light palpation. Bilateral lower rib margins exquisitely tender to light palpation. No rebound or guarding noted bowel sounds are present all 4 quadrants. EXTREMITIES: No edema SKIN: no brusiing and Jaundice Results: 06/30/2021 CT IMPRESSION: 1. No imaging findings of active pancreatitis or complications from prior pancreatitis. 2. Scattered sub-5 mm nonobstructing renal stones in the bilateral kidneys. 12/29/2018 (Outside) CTA IMPRESSION Negative CT angiography of the abdomen and pelvis. No evidence of mesenteric ischemia or acute intra-abdominal process. Tiny nephroliths in both kidneys with no evidence of obstruction. 08/07/2018 (Outside) MRCP IMPRESSION: Scattered cavernous hemangiomas and cysts within the liver ofno clinical significance. No acute intra-abdominal abnormality Identified. Laboratory: Sodium Date Value Ref Range Status 08/10/2021 137 135 - 146 mmol/L Final Potassium, pl Date Value Ref Range Status 08/10/2021 3.9 3.5 - 5.3 mmol/L Final Chloride Date Value Ref Range Status 08/10/2021 102 98 - 110 mmol/L Final CO2 Date Value Ref Range Status 08/10/2021 29 20 - 32 mmol/L Final Anion gap Date Value Ref Range Status 07/23/2021 10 2 - 15 mmol/L Final Glucose Date Value Ref Range Status 08/10/2021 84 65 - 99 mg/dL Final Comment: Fasting reference interval BUN Date Value Ref Range Status 08/10/2021 11 7 - 25 mg/dL Final Creatinine Date Value Ref Range Status 08/10/2021 0.91 0.50 - 1.10 mg/dL Final Calcium Date Value Ref Range Status 08/10/2021 9.1 8.6 - 10.2 mg/dL Final Protein, sr Date Value Ref Range Status 08/10/2021 6.8 6.1 - 8.1 g/dL Final Albumin Date Value Ref Range Status 08/10/2021 4.1 3.6 - 5.1 g/dL Final Alk phos Date Value Ref Range Status 08/10/2021 76 31 - 125 U/L Final ALT (SGPT) Date Value Ref Range Status 08/10/2021 15 6 - 29 U/L Final AST Date Value Ref Range Status 08/10/2021 11 10 - 35 U/L Final Bilirubin, total Date Value Ref Range Status 08/10/2021 0.5 0.2 - 1.2 mg/dL Final WBC Date Value Ref Range Status 08/10/2021 11.3 (H) 3.8 - 10.8 Thousand/uL Final Hgb Date Value Ref Range Status 08/10/2021 13.6 11.7 - 15.5 g/dL Final Hct Date Value Ref Range Status 08/10/2021 42.3 35.0 - 45.0 % Final MCV Date Value Ref Range Status 08/10/2021 90.4 80.0 - 100.0 fL Final Platelets Date Value Ref Range Status 08/10/2021 311 140 - 400 Thousand/uL Final TSH Date Value Ref Range Status 01/01/2017 0.43 0.30 - 4.20 mcIUnit/mL Final Comment: Interpretive Data Hyperthyroid: <0.1 mcIUnit/mL Hypothyroid: >12.0 mcIUnit/mL Current interpretive data was last revised on 00. Amylase Date Value Ref Range Status 08/10/2021 62 21 - 101 U/L Final LIPASE Date Value Ref Range Status 08/10/2021 53 7 - 60 U/L Final 07/20/2021 outside: CMP: Within normal limits including calcium and LFTs. Lipase elevated at 414 (300 ULN). CHEM PROFILE [facility] Component 03/01/2021 03/01/2021 GLUCOSE 83 -- BUN 13 -- CREATININE S/P/B 1.17??High?? -- SODIUM 136 -- POTASSIUM 4.3 -- CHLORIDE S/P/B 109??High?? -- CO2 24.2 -- CALCIUM 9.2 -- BILIRUBIN TOTAL S/P/B 0.7 -- TOTAL PROTEIN S/P/B 8.0 -- ALBUMIN S/P/B 3.6 -- AST 35 -- ALT 74??High?? -- ALKALINE PHOSPHATASE S/P/B 87 -- ANION GAP 2.8??Low?? -- BUN CREATININE RATIO 11.1 -- A/G RATIO 0.8??Low?? -- eGFR Non-Afr. Amer. 56??Low?? -- eGFR Afr. Amer. 65??Low?? -- LIPASE -- 502??High?? (393 ULN) CHEM STUDIES [facility] [place] 12/29/2018 Component 12/29/2018 12/28/2018 12/28/2018 12/26/2018 12/26/2018 LIPASE -- -- 50 -- 67??High??(60 ULN) Load older lab results AMYLASE -- -- -- -- -- Load older lab results SODIUM 141 139 -- 136 -- POTASSIUM 3.9 4.1 -- 5.4??High?? -- CHLORIDE 107 108??High?? -- 104 -- CO2 22 23 -- 18??Low?? -- CALCIUM 8.3??Low?? 8.2??Low?? -- 8.7 -- BUN 3??Low?? 6 -- 11 -- CREATININE 1.00??High?? 0.99??High?? -- 0.95 -- GLUCOSE 82 88 -- 82 -- TOTAL PROTEIN 6.5??Low?? 6.7 -- 7.6 -- ALBUMIN 3.7 3.7 -- 4.1 -- BILIRUBIN TOTAL 0.3 0.2??Low?? -- 0.2??Low?? -- ALKALINE PHOSPHATASE 75 71 -- 78 -- AST 14 13 -- 27 -- ALT 17 9 -- 11 -- GFR 60 >60 -- >60 -- GFR, >60 >60 -- >60 -- ANION GAP 12 8 -- 14 -- Assessment/Plan (This patient was seen in conjunction with Dr. Devin Miller): 46-year-old female with a past medical history [...] duct irregularities. Etiology of her symptoms is unclear however smoldering pancreatitis versus chronic pancreatitis changes not appreciated on prior imaging, autoimmune pancreatitis (in the setting of other autoimmune disease), IBS C or other functional etiology are in the differential. We recommend beginning our workup as follows: - We will check IgG4 subclasses for autoimmune pancreatitis. - We will schedule an EGD/EUS to evaluate for any for get pathology contributing to her symptoms and to evaluate her pancreas, bile ducts and gallbladder for pathology. We discussed the risks of the procedure to include but were not limited to, anesthesia, aspiration, perforation, bleeding and infection. She verbalized understanding of this and wished to proceed. 2. IBS-C: She has successfully been treated with Amitiza. She does have episodes of diarrhea when her abdominal pain is at its worst. At that juncture she will hold the Amitiza until her diarrhea resolves. - Continue with current regimen. We allowed ample opportunity for the patient ask questions and have her questions answered. We willfollow up with her in the office with the results of the IgG4 subclasses and at the time of the EGD/EUS. Orders Orders Placed This Encounter Procedures ??? IgG, Subclasses(1-4) Standing Status: Future Number of Occurrences: 1 Standing Expiration Date: 08/30/2022 Cosigned by Devin Miller MD at 09/01/2021 8:45 AM CDT Associated attestation - Devin Milelr MD - 09/01/2021 8:45 AM CDT I have seen and examined the patient. I agree with the findings and plan of care as documented by the nurse practitioner . My total encounter time on 08/30/2021 was 20 minutes which was spent in the activities documented in the note. This includes time spent prior to the visit and after the visit indirect care of the patient. This time does not include time spent in any separately reportable services. documented in this encounter Plan of Treatment Scheduled Orders Name Type Priority Associated Diagnoses Orde r Schedule IgG, Subclasses(1-4) Lab Routine Acute pancreatitis without infection or necrosis, unspecified pancreatitis type Expected: 08/30/2021 (Approximate), Expires: 08/30/2022 documented as of this encounter Visit Diagnoses Diagnosis Abdominal pain- Primary Abdominal pain, unspecified site Acute pancreatitis without infection or necrosis, unspecified pancreatitis type Other chronic pancreatitis (HCC) 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 syndrome with constipation 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 syndrome documented in this encounter Discontinued Medications Medication Sig Discontinue Reason Start Date End Da te VENTOLIN HFA 90 mcg/actuation inhaler INL 1 TO 2 PFS PO Q 4 TO 6 H PRF COUGH Other 11/08/2018 08/30/2021 traMADoL (ULTRAM) 50 mg tablet TAKE 1 TABLET(50 MG) BY MOUTH EVERY 8 HOURS NEEDED FOR PAIN Other 06/09/2021 08/30/2021 topiramate (TOPAMAX) 100 mg tablet Take 200 mg by mouth Other 08/30/2021 raNITIdine (ZANTAC) 50 mg/2 mL (25 mg/mL) injection infuse by intravenous route every 8 hours over Other 05/17/2016 08/30/2021 pregabalin (LYRICA) 100 mg capsule Take 100 mg by mouth Other 08/30/2021 oxyCODONE-acetaminophe n (PERCOCET) 5-325 mg per tablet TK 1 T PO PRN Q 6 H Other 09/03/2018 08/30/2021 oxyCODONE (ROXICODONE) 5 mg immediate release tabletIndications:Pain Take 1 tablet (5 mg total) by mouth every 4 (four) hours as needed for pain for up to 10 doses Other 07/23/2021 08/30/2021 omeprazole (PriLOSEC) 10 mg capsule take 2 capsule by oral route every day before a meal Other 05/17/2016 08/30/2021 norethindrone-ethinyl estradiol-iron (MICROGESTIN FE 1.5/30, 28,) 1.5 mg-30 mcg per tablet Take 1 tablet by mouth daily Other 12/24/2018 08/30/2021 hyoscyamine (OSCIMIN) 0.125 mg Take 0.125 mg by mouth every 3 hours Other 08/05/2015 08/30/2021 guaiFENesin-dextrometh orphan ER (MUCINEX DM) 600-30 mg tablet extended release 12 hr Take 1 tablet by mouth Other 02/02/2017 doxycycline (DORYX) 100 mg EC tablet 100 mg every 12 (twelve) hours Other 12/19/2016 08/30/2021 cyclobenzaprine (FLEXERIL) 5 mg tablet TAKE 1 TABLET BY ORAL ROUTE EVERY BEDTIME Other 11/03/2015 08/30/2021 clonazePAM (KlonoPIN) 0.5 mg tablet Other 07/30/2018 08/30/2021 LYRICA 75 mg capsule TK ONE C PO BID Other 08/17/2018 08/31/2021 documented as of this encounter Historical Medications * This list may reflect changes made after this encounter. propranoloL (INDERAL) 10 mg tablet Take 10 mg by mouth daily 08/03/2021 ALPRAZolam (XANAX) 1 mg tablet Take 1 mg by mouth 3 (three) times a day 08/03/2021 polyethylene glycol (MIRALAX) 17 gram/dose powder Take 17 g by mouth 2 (two) times a day as needed 12/29/2018 01/17/2023 added in this encounter Orders Outpatient Referral Count Last Ordered Date Fir st Ordered Date AMB REFERRAL TO GASTROENTEROLOGY 1 08/31/19 22 documented in this encounter Care Teams Latex Caster Relationship Specialty Start Date End Date Bhupinder Tobias MD [address] [place] [address] PCP - General Internal Medicine 06/03/20 Cash Heath III, MD [address] [facility] [address] [place] [address] Rheumatology 04/12/17 Jorge Aguiar MD [address] [facility] [address] [place], [place] [id number] Consulting Physician Urology 11/10/20 Khoa Arias MD [address] [facility] [address] [place], [place] [id number] Referring Physician Gastroenterology 03/20/21 documented as of this encounter
--- OUTSIDE RECORDS SUMMARY | 2024-04-29 19:23 | XMS_ITS | Encounter Summary ---
Author Organization [facility] Address [address] [place] [address] Phone Care Team Providers Care Lead Electrical Engineer Name Role Phone Isaiah Quiros MD Unavailable Kumar CARRILLO MD, Cash Howard Unavailable [phone] Alex Mahajan MD Unavailable [phone] Bhupinder Tobias MD Unavailable Bhupinder Tobias MD Primary Care Provider [phone] Jorge Aguiar MD Unavailable [phone] Encounter Details Date Type Department Care Team (Late st Contact Info) Description 03/15/2021 Telephone [facility] [address] [place] [phone] Kraig Garcia Social History Tobacco Use Types Packs/Day Years Used Date Smoking Tobacco: Never Alcohol Use Standard Drinks/Week Comments No 0 (1 standard drink = 0.6 oz pur e alcohol) Comments No Sex and Gender Information Value Date Recorded Sex Assigned at Not on file 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 I had completely forgotten about already sending it. If there are other things you need, let me know. Thank you! You are the best. Have a great day. ADMINISTRATOR documented in this encounter Plan of Treatment Not on file documented as of this encounter Visit Diagnoses Not on filedocumented in this encounter Care Teams Lead Electrical Engineer Relationship Specialty Start Date End Date Bhupinder Tobias MD [address] [address] PCP - General Internal Medicine 06/03/20 Isaiah Quiros MD [address] [facility] 1 [place] [address] Internal Medicine 02/18/17 03/19/21 Cash Heath III, MD [address] [facility] [address] [place] [address] Rheumatology 04/12/17 Alex Mahajan MD [address] [place] [address] Referring Physician Internal Medicine 05/07/19 1 Bhupinder Tobias MD [address] [facility] 120 [place] [address] Referring Physician Internal Medicine 06/03/20 1 Jorge Aguiar MD [address] [address] Consulting Physician Urology 11/10/20 documented as of this encounter
--- OUTSIDE RECORDS SUMMARY | 2024-04-29 19:23 | XMS_ITS | Encounter Summary ---
Author Organization [facility] Address [address] [place] [address] Phone Care Team Providers Care Mortuary Technician Name Role Phone Isaiah Quiros MD Unavailable Kumar CARRILLO MD, Cash Howard Unavailable [phone] Alex Mahajan MD Unavailable [phone] Bhupinder Tobias MD Unavailable [phone] Bhupinder Tobias MD Primary Care Provider [phone] Reason for Visit * Reason Onset Date Comments Rigo VALLE Started 06/03/2020 Encounter Details Date Type Department Care Team (Late st Contact Info) Description 06/03/2020 Telephone [facility] [address] [place] [phone] Miriam Frye PA [address] [place] [address] Rigo VALLE Started Social History Tobacco Use Types Packs/Day Years Used Date Smoking Tobacco: Never Alcohol Use Standard Drinks/Week Comments No 0 (1 standard drink = 0.6 oz pur e alcohol) Comments No Sex and Gender Information Value Date Recorded Sex Assigned at Not on file Legal Sex Female 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 O TRIMMER documented in this encounter Plan of Treatment Not on file documented as of this encounter Visit Diagnoses Not on filedocumented in this encounter Care Teams Mortuary Technician Relationship Specialty Start Date End Date Bhupinder Tobias MD [address] [facility] [address] [place] [address] PCP - General Internal Medicine 06/03/20 Isaiah Quiros MD [address] [facility] 1 [place] [address] Internal Medicine 02/18/17 03/19/21 Cash Heath III, MD [address] [facility] [address] [place] [address] Rheumatology 04/12/17 Alex Mahajan MD [address] [facility] [address] [place], [place] [id number] Referring Physician Internal Medicine 05/07/19 1 Bhupinder Tobias MD [address] [facility] [address] [facility] [address] [place] [address] Referring Physician Internal Medicine 06/03/20 1 documented as of this encounter
--- OUTSIDE RECORDS SUMMARY | 2024-04-29 19:24 | XMS_ITS | Encounter Summary ---
Author Organization [facility] Address [address] [place] [address] Phone Care Team Providers Care National Sales Name Role Phone Isaiah Quiros MD Unavailable Isaiah Quiros MD Primary Care Provider [phone] Kumar CARRILLO MD, Cash Howard Unavailable [phone] Alex Mahajan MD Unavailable [phone] Encounter Details Date Type Department Care Team (Late st Contact Info) Description 12/23/2019 Telephone [facility] [address] [place] [address] Elena Kumari PA [address] [place] [address] Social History Tobacco Use Types Packs/Day Years Used Date Smoking Tobacco: Never Alcohol Use Standard Drinks/Week Comments No 0 (1 standard drink = 0.6 oz pur e alcohol) Comments No Sex and Gender Information Value Date Recorded Sex Assigned at Not on file 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 Gender Identity Female 08/14/2022 11:32 AM CDT Sexual Orientation Straight 02/13/2023 7: 01 AM CDT documented as of this encounter Ordered Prescriptions Prescription Sig Dispense Quantity Refills Last Filled Start Date End Date traMADoL (ULTRAM) 50 mg tablet Take 1 tablet (50 mg total) by mouth every 8 (eight) hours as needed for pain 90 tablet 12/23/2019 01/22/2020 documented in this encounter Miscellaneous Notes * Telephone Encounter - Tiara Rainey - 12/23/2019 4:14 PM CDT Refill called & charted * Telephone Encounter - Elena Villegas PA - 12/23/2019 3:54 PM CDT Please call in refill for tramadol 50mg 1 tab q8h prn. #90. Thanks. documented in this encounter Plan of Treatment Not on file documented as of this encounter Visit Diagnoses Not on filedocumented in this encounter Discontinued Medications Medication Sig Discontinue Reason Start Date End Da te traMADoL (ULTRAM) 50 mg tablet Take 1 tablet (50 mg total) by mouth every 8 (eight) hours as needed for pain Reorder 10/19/2019 12/23/2019 documented as of this encounter Care Teams National Sales Relationship Specialty Start Date End Date Isaiah Quiros MD [address] [place] [address] PCP - General Internal Medicine 04/01/17 06/02/20 Isaiah Quiros MD [address] [place] [address] Internal Medicine 02/18/17 03/19/21 Cash Heath III, MD [address] [place] [address] Rheumatology 04/12/17 Alex Mahajan MD [address] [facility] [address] [place] [address] Referring Physician Internal Medicine 05/07/19 1 documented as of this encounter
--- OUTSIDE RECORDS SUMMARY | 2024-04-29 19:24 | XMS_ITS | Encounter Summary ---
Author Organization [facility] Address [address] [place] [address] Phone Care Team Providers Care Electronic System Engineer Name Role Phone Isaiah Quiros MD Unavailable Isaiah Quiros MD Primary Care Provider [phone] Kumar CARRILLO MD, Cash Howard Unavailable [phone] Alex Mahajan MD Unavailable [phone] Encounter Details Date Type Department Care Team (Late st Contact Info) Description 01/15/2020 [facility] Only [facility] [address] [address] Miriam Frye PA [address] [place] [id number] Social History Tobacco Use Types Packs/Day Years Used Date Smoking Tobacco: Never Alcohol Use Standard Drinks/Week Comments No 0 (1 standard drink = 0.6 oz pur e alcohol) Comments No Sex and Gender Information Value Date Recorded Sex Assigned at Not on file 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 Gender Identity Female 08/14/2022 11:32 AM CDT Sexual Orientation Straight 02/13/2023 7: 01 AM CDT documented as of this encounter Plan of Treatment Not on file documented as of this encounter Procedures Procedure Name Priority Date/Time Associated Diagnosis Comments SCAN - RADIOLOGY/IMAGING 01/15/2020 3:38 PM CDT documented in this encounter Results * SCAN - RADIOLOGY/IMAGING (01/15/2020 3:38 PM CDT) Anatomical Region Laterality Modality Other us Miriam martinez Result documented in this encounter Visit Diagnoses Not on filedocumented in this encounter Care Teams Electronic System Engineer Relationship Specialty Start Date End Date Isaiah Quiros MD [address] [place] [address] PCP - General Internal Medicine 04/01/17 06/02/20 Isaiah Quiros MD [address] [place] [address] Internal Medicine 02/18/17 03/19/21 Cash Heath III, MD [address] [place] [address] Rheumatology 04/12/17 Alex Mahajan MD [address] [place] [address] Referring Physician Internal Medicine 05/07/19 1 documented as of this encounter
--- OUTSIDE RECORDS SUMMARY | 2024-04-29 19:24 | XMS_ITS | Encounter Summary ---
Author Organization [facility] log[facility] Address [address] [place] [address] Phone Care Team Providers Care Security Researcher Name Role Phone Isaiah Quiros MD Unavailable Isaiah Quiros MD Primary Care Provider [phone] Kumar CARRILLO MD, aCsh Howard Unavailable [phone] Alex Mahajan MD Unavailable [phone] Reason for Referral * Diagnostic Imaging (Routine) - Closed Specialty Diagnoses / Procedures Referred By Kaylynn phillips Referred To Contact Diagnoses Rheumatoid arthritis of multiple sites without rheumatoid factor (CMS/HCC) (HCC) Encounter for long-term (current) use of medications Osteoporosis without current pathological fracture, unspecified osteoporosis type Procedures US Hand Complete Miriam Frye PA [address] [place] [address] Phone: tel: fax: External Order Referral ID Status Reason Start Date Expiration Date Visits Re quested Visits Authorized [id number] Closed 09/10/2019 03/21/2021 1 1 Reason for Visit * Diagnostic Imaging (Routine) - Closed Specialty Diagnoses / Procedures Referred By Kaylynn phillips Referred To Contact Diagnoses Rheumatoid arthritis of multiple sites without rheumatoid factor (CMS/HCC) (HCC) Encounter for long-term (current) use of medications Osteoporosis without current pathological fracture, unspecified osteoporosis type Procedures US Hand Complete Miriam Frye PA [address] [place] [address] Phone: tel: fax: External Order Referral ID Status Reason Start Date Expiration Date Visits Re quested Visits Authorized [id number] Closed 09/10/2019 03/21/2021 1 1 Encounter Details Date Type Department Care Team (Latest Contact Info) Description 10/01/2019 8:51 AM CDT - 10/01/2019 11:59 PM CDT Hospital Encounter [facility] [address] [place] [phone] Rheumatoid arthritis of multiple sites without rheumatoid factor ([facility] Encounter for long-term (current) use of medications; Osteoporosis without current pathological fracture, unspecified osteoporosis type Discharge Disposition: Discharge to home or self care Social History Tobacco Use Types Packs/Day Years Used Date Smoking Tobacco: Never Alcohol Use Standard Drinks/Week Comments No 0 (1 standard drink = 0.6 oz pur e alcohol) Comments No Sex and Gender Information Value Date Recorded Sex Assigned at Not on file 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 Gender Identity Female 08/14/2022 11:32 AM CDT [...] (CYMBALTA) 60 mg capsule [address] (PROTONIX) 40 mg EC tablet [...] 4 TS IN 24 H 0 07/09/2016 traZODone (DESYREL) 100 mg tablet Take 100 mg by mouth abatacept (Orencia ClickJect) 125 mg/mL auto-injectorIndica tions:Rheumatoid Arthritis Inject 1 mL (125 mg total) under the skin every 7 days 4 pen 2 07/28/2019 10/14/19 20 abatacept (ORENCIA) 250 mg injection 01/18/20 20 alendronate (FOSAMAX) 70 mg tablet 1 09/02/2018 01/18/20 23 AMITIZA 24 mcg capsule TK ONE C PO BID WF AND WATER 1 12/15/2018 01/18/20 23 azaTHIOprine (IMURAN) 50 mg tablet TAKE 2 TABLETS BY MOUTH EVERY MORNING AND 1 TABLET EVERY EVENING 270 tablet 09/10/2019 11/11/19 20 clonazePAM (KlonoPIN) 0.5 mg tablet 3 07/30/2018 08/31/19 22 cyclobenzaprine (FLEXERIL) 5 mg tablet TAKE 1 TABLET BY ORAL ROUTE EVERY BEDTIME 30 0 11/03/2015 08/31/19 22 doxycycline (DORYX) 100 mg EC tablet 100 mg every 12 (twelve) hours 12/19/2016 08/31/[address] (CYMBALTA) 60 mg capsule take 1 capsule by oral route every day 0 0 06/29/2015 02/07/20 21 guaiFENesin-dextrom ethorphan ER (MUCINEX DM) 600-30 mg tablet extended release 12 hr Take 1 tablet by mouth 02/02/2017 08/31/19 22 hydroxychloroquine (PLAQUENIL) 200 mg tablet 200 mg 10/19/19 20 hyoscyamine (OSCIMIN) 0.125 mg Take 0.125 mg by mouth every 3 hours 08/05/2015 08/31/19 22 linaclotide (LINZESS) 145 mcg capsule Take 145 mcg by mouth 09/15/2015 09/01/19 22 LYRICA 75 mg capsule TK ONE C PO BID 2 08/17/2018 09/01/19 22 norethindrone-ethin yl estradiol-iron (MICROGESTIN FE 1.530, 28,) 1.5 mg-30 mcg per tablet Take 1 tablet by mouth daily 84 tablet 4 12/24/2018 08/31/19 22 omeprazole (PriLOSEC) 10 mg capsule take 2 capsule by oral route every day before a meal 0 0 05/17/2016 08/31/19 22 ondansetron ODT (ZOFRAN-ODT) 8 mg disintegrating tablet Take 1 tablet (8 mg total) by mouth every 8 (eight) hours as needed for nausea or vomiting 60 tablet 07/09/2019 10/19/19 20 oxyCODONE-acetamino phen (PERCOCET) 5-325 mg per tablet TK 1 T PO PRN Q 6 H 0 09/03/2018 08/31/19 22 polyethylene glycol (MIRALAX) 17 gram/dose powder Take 17 g by mouth 2 (two) times a day as needed 12/29/2018 01/18/20 23 predniSONE (DELTASONE) 5 mg tablet 2 tabs po every day x 5d, 1 tab po every day x 5d ,1/2 tab po every day x 5 d. 30 tablet 04/23/2019 12/23/19 20 pregabalin (LYRICA) 100 mg capsule Take 100 [...] 08/31/19 22 traMADoL (ULTRAM) 50 mg tablet Take 1 tablet (50 mg total) by mouth every 8 (eight) hours as needed for pain 90 tablet 09/10/2019 10/19/19 20 VENTOLIN HFA 90 mcg/actuation inhaler INL 1 TO 2 PFS PO Q 4 TO 6 H PRF COUGH 0 11/08/2018 08/31/19 22 documented as of this encounter Discharge Disposition Disposition Code Departure Means Destination Discharge to home or self care documented in this encounter Plan of Treatment Not on file documented as of this encounter Procedures Procedure Name Priority Date/Time Associated Diagnosis Comments US HAND COMPLETE Schedule Routine, Read Routine (OP Routine) 10/01/2019 9:28 AM CDT Rheumatoid arthritis of multiple sites without rheumatoid factor (CMS/HCC) Encounter for long-term (current) use of medications Osteoporosis without current pathological fracture, unspecified osteoporosis type documented in this encounter Results * US Hand Complete (10/01/2019 9:28 AM CDT) Anatomical Region Laterality Modality Hand N/A Ultrasound us Miriam VALLE IMJuanis US PROCEDURES Final Result documented in this encounter Visit Diagnoses Diagnosis Rheumatoid arthritis of multiple sites without rheumatoid factor (CMS/HCC) (HCC) Encounter for long-term (current) use of medications Encounter for long-term (current) use of other medications Osteoporosis without current pathological fracture, unspecified osteoporosis type documented in this encounter Care Teams Security Researcher Relationship Specialty Start Date End Date Isaiah Quiros MD [address] [place] [address] PCP - General Internal Medicine 04/01/17 06/02/20 Isaiah Quiros MD [address] [place] [address] Internal Medicine 02/18/17 03/19/21 Cash Heath III, MD [address] [place] [address] Rheumatology 04/12/17 Alex Mahajan MD [address] [place] [address] Referring Physician Internal Medicine 05/07/19 1 documented as of this encounter
--- OUTSIDE RECORDS SUMMARY | 2024-04-29 19:24 | XMS_ITS | Encounter Summary ---
Author Organization [facility] Address [address] [place] [phone] Phone Care Team Providers Care Ship'S Captain Name Role Phone Isaiah Quiros MD Unavailable Isaiah Quiros MD Primary Care Provider [phone] Kumar CARRILLO MD, John J. Unavailable [phone] Reason for Visit * Reason Comments Rheumatoid Arthritis Encounter Details Date Type Department Care Team (Late st Contact Info) Description 04/23/2019 1:15 PM [employer] Office Visit [facility] [address] [place] [address] Miriam Frye PA [address] [place] [address] Rheumatoid arthritis of multiple sites without rheumatoid factor (CMS/[facility]) (Primary Dx); Osteoporosis without current pathological fracture, unspecified osteoporosis type; Encounter for long-term (current) use of medications; Meredith-Danlos disease; Frequent infections Social History Tobacco Use Types Packs/Day Years Used Date Smoking Tobacco: Never Alcohol Use Standard Drinks/Week Comments No 0 (1 standard drink = 0.6 oz pur e alcohol) Comments No Sex and Gender Information Value Date Recorded Sex Assigned at Not on file Legal Sex Female 9:24 PM [employer] Gender Identity Female 08/14/2022 11:32 AM CDT Sexual Orientation Straight 02/13/2023 7: 01 AM CDT documented as of this encounter Last Filed Vital Signs Vital Sign Reading Time Taken Comments Blood Pressure 104/68 04/23/2019 1:09 PM [employer] Pulse 129 04/23/2019 1:09 PM [employer] Temperature - - Respiratory Rate - - Oxygen Saturation - - Inhaled Oxygen Concentration - - Weight 98 kg (216 lb) 04/23/2019 1:09 PM [employer] Height 167.6 cm (5' 6 ) 04/23/2019 1:09 PM [employer] Body Mass Index 34.86 04/23/2019 1:09 PM [employer] documented in this encounter Ordered Prescriptions Prescription Sig Dispense Quantity Refills Last Filled Start Date End Date predniSONE (DELTASONE) 5 mg tablet 2 tabs po every day x 5d, 1 tab po every day x 5d ,1/2 tab po every day x 5 d. 30 tablet 04/23/2019 12/23/2019 azaTHIOprine (IMURAN) 50 mg tablet Take 1 tablet (50 mg total) by mouth 2 (two) times a day 60 tablet 2 04/23/2019 07/23/2019 documented in this encounter Progress Notes * Miriam Frye PA - 04/23/2019 1:15 PM CST Images from the original note were not included. Subjective/Objective Patient ID: Madalyn Smith is a 43 y.o. female. Chief Complaint Joint pain HPI States that since October she has been sick a lot. First she had gastroenteritis and was in hospital x3 d. Then she had 1 uri after another. occ she took 1 imuran every day if she did not have an infection but that did not last long. She has not been compliant with labs q 6 weeks as advised in past to get if she is taking imuran. Presently no infections. No sob, cp, rashes, oral or nose ulcers. Hands are very swollen and painful. Feet also hurt, ankles hurt. Review of Systems Constitutional: Negative for fatigue [...] dry. Psychiatric: Normal mood. Vitals reviewed. CDAI: 48 Labs Lab Results Component Value Date WBC 7.4 11/24/2018 HGB 10.9 (L) 11/24/2018 HCT 36.0 11/24/2018 MCV 80.7 11/24/2018 Lab Results Component Value Date GLUCOSE 77 11/24/2018 CALCIUM 9.2 11/24/2018 SODIUM 139 11/24/2018 POTASSIUM 4.4 11/24/2018 CO2 26 11/24/2018 CHLORIDE 106 11/24/2018 BUNSER 16 11/24/2018 CREATININE 0.96 11/24/2018 Lab Results Component Value Date ALT 10 11/24/2018 AST 9 (L) 11/24/2018 ALKPHOS 77 11/24/2018 BILITOT 0.3 11/24/2018 Lab Results Component Value Date SEDRATE 29 (H) 11/24/2018 Lab Results Component Value Date CRP 15.8 (H) 11/24/2018 Assessment/Plan Diagnoses and all orders for this visit: Rheumatoid arthritis of multiple sites without rheumatoid factor ([facility]) (Primary) Assessment & Plan: High cdai. On orencia IV but has not had it since November. Was also on azathioprine 50mg po bid butwas only taking it on/off due to infection. Advised pt to get labs q 6 weeks while on imuran. Will restart orencia iv. Check labs today. RF neg but has a possible family hx of psoriatic arthritis (father) so if she develops psoriasis diagnosis will change to psoriatic arthritis. Labs stable 08/01/18.TPMT wnl. ?? Orders: - CBC with auto differential; [...] medications Assessment & Plan: Quant gold neg 10/2018. TPMT nl 17 Weight loss with imuran, stopped it 01/2017 Failed humira Plaquenil failure Imuran caused weight loss 2016, TPMT wnl at 17 in 2016 Hep B and C neg 2015 Failed Enbrel and humira TPMT wnl 06/2016 BDS done by pcp 2018 and it showed osteoporosis ?? Orders: - CBC with auto differential; Future - Comprehensive metabolic panel; Future - CRP (acute phase); Future - Erythrocyte sedimentation rate; Future Meredith-Danlos disease Assessment & Plan: Advised to get chest CT to r/o aortic aneurysm, to discuss with pcp. Frequent infections Assessment & Plan: Check serum immunoglobulins. Orders: - Immunoglobulins A/E/G/M, Serum; Future Other orders - azaTHIOprine (IMURAN) 50 mg tablet; Take 1 tablet (50 mg total) by mouth 2 (two) times a day - predniSONE (DELTASONE) 5 mg tablet; 2 tabs po every day x 5d, 1 tab po every day x 5d ,1/2 tab poevery day x 5 d. Cosigned by Cash Heath III, MD at 04/23/2019 4:49 PM [employer] ON LAMP CLEANER ON LAMP CLEANER * Miriam Frye PA - 04/23/2019 1:15 PM CST Platelets elevated, could be due to inflammation, inflammatory markers are up but should also get opinion from heme. Needs referral to heme from pcp. Send pcp copies of labs. [employer]AMP CLEANER * Miriam Frye PA - 04/23/2019 1:15 PM CST Also mild anemia, make sure she is utd with colo. Check anemia panel. [employer]ER documented in this encounter Miscellaneous Notes * Assessment & Plan Note - Miriam Frye PA - 04/23/2019 1:46 PM CSTAssociated Problem(s): Frequent infections Check serum immunoglobulins. [employer]ER * Assessment & Plan Note - Miriam Frye PA - 04/20/2019 4:57 PM CSTAssociated Problem(s): Meredith-Danlos disease Advised to get chest CT to r/o aortic aneurysm, to discuss with pcp. [employer]AMP CLE[employer]ER * Assessment & Plan Note - Miriam Frye PA - 04/20/2019 4:56 PM CSTAssociated Problem(s): Encounter for long-term (current) use of medications Quant gold neg 10/2018. TPMT nl 17 Weight loss with imuran, stopped it 01/2017 Failed humira Plaquenil failure Imuran caused weight loss 2016, TPMT wnl at 17 in 2016 Hep B and C neg 2015 Failed Enbrel and humira TPMT wnl 06/2016 BDS done by pcp 2018 and it showed osteoporosis ?? ON LAMP CLEANER ON LAMP CLEANER * Assessment & Plan Note - Miriam Frye PA - 04/20/2019 4:56 PM CSTAssociated Problem(s): Osteoporosis without current pathological fracture bds checked by pcp in past, is taking ca and vit d and pcp checked vit D and PTH per pt was wnl. Her pcp started her on alendronate 70mg po qweek. Taking ca + vit d 1200mg qd. ON LAMP CLEANER * Assessment & Plan Note - Miriam Frye PA - 04/20/2019 4:55 PM CSTAssociated Problem(s): Psoriatic arthritis (HCC) High cdai. On orencia IV but has [...] psoriatic arthritis. Labs stable 08/01/18.TPMT wnl. ?? ON LAMP CLEANER ON LAMP CLEANER ON LAMP CLEANER [employer] LAMP CLEANER documented in this encounter Plan of Treatment Scheduled Orders Name Type Priority Associated Diagnoses Orde r Schedule Immunoglobulins A/E/G/M, Serum Lab Routine Frequent infections Expected: 04/23/2019, Expires: 04/23/2020 documented as of this encounter Procedures Procedure Name Priority Date/Time Associated Diagnosis Comments IMMUNOGLOBULINS A/E/G/M, SERUM Routine 04/23/2019 1:43 PM [employer] CBC WITH AUTO DIFFERENTIAL Routine 04/23/2019 1:43 PM [employer] Rheumatoid arthritis of multiple sites without rheumatoid factor (CMS/HCC) Encounter for long-term (current) use of medications ERYTHROCYTE SEDIMENTATION RATE Routine 04/23/2019 1:43 PM [employer] Rheumatoid arthritis of multiple sites without rheumatoid factor (CMS/HCC) Encounter for long-term (current) use of medications CRP (ACUTE PHASE) Routine 04/23/2019 1:4 3 PM [employer] Rheumatoid arthritis of multiple sites without rheumatoid factor (CMS/HCC) Encounter for long-term (current) use of medications COMPREHENSIVE METABOLIC PANEL Routine 04/23/2019 1:43 PM [employer] Rheumatoid arthritis of multiple sites without rheumatoid factor (CMS/HCC) Encounter for long-term (current) use of medications documented in this encounter Results * Immunoglobulins A/E/G/M, Serum (04/23/2019 1:43 PM [employer]) Immunoglobulin A 228 47 - 310 mg/dL [facility] [place] Immunoglobulin E 41 <MB=794 kU/L [facility] [place] Immunoglobulin G 1,064 600 - 1,640 mg/dL [facility] [place] Immunoglobulin M 125 50 - 300 mg/dL [facility] [place] 04/23/2019 1:43 PM [employer] 04/23/2019 1:44 PM [employer] Narrative Resulting Agency Comment Performing Organization Information: ?Site ID: [id number] ?Name: [facility] ?Address: [facility] [place] [phone] ?Director: Curtis Noe D.O., MPH Miriam [facility] BLOOD ORDERAB LES Final Result [facility] [place] * Erythrocyte sedimentation rate (04/23/2019 1:43 PM [employer]) Erythrocyte sedimentation rate 11 < OR = 20 mm/h [facility] [place] Blood specimen (specimen) 04/23/2019 1:43 PM [employer] 04/23/2019 1:44 PM [employer] Narrative Resulting Agency Comment Performing Organization Information: ?Site ID: [id number] ?Name: [facility] ?Address: [facility] [place] [phone] ?Director: Curtis Noe D.O., MPH Miriam [facility] BLOOD ORDERAB LES Final Result [facility] [place], [place] * (ABNORMAL) CRP (acute phase) (04/23/2019 1:43 PM [employer]) C-RP 9.8(H) <8.0 mg/L [facility] [place] Blood specimen (specimen) 04/23/2019 1:43 PM [employer] 04/23/2019 1:44 PM [employer] Narrative Resulting Agency Comment Performing Organization Information: ?Site ID: [place] ?Name: [facility] ?Address: [address] [place] [address] [place] [phone] ?Director: Curtis Noe D.O., MPH Miriam [facility] BLOOD ORDERAB LES Final Result Performing Organization Address [facility] Co de Phone Number [facility] [place] * Comprehensive metabolic panel (04/23/2019 1:43 PM [employer]) Pathologist [facility] Glucose 84 65 - 99 mg/dL [facility] [place] Comment: ? Fasting reference interval BUN 16 7 - 25 mg/dL [facility] [place] Creatinine 0.92 0.50 - 1.10 mg/dL [facility] [place] eGFR NON-AFR. INDONESIAN 76 > OR = 60 mL/min/1. 73m2 [facility] [place] EGFR 88 > OR = 60 mL/min/1. 73m2 [facility] [place] BUN/creat ratio NOT APPLICABLE 6 - 22 (calc) [facility] [place] Sodium 139 135 - 146 mmol/L [facility] [place] Potassium, pl 4.3 3.5 - 5.3 mmol/L [facility] [place] Chloride 105 98 - 110 mmol/L [facility] [place] CO2 23 20 - 32 mmol/L [facility] [place] Calcium 9.6 8.6 - 10.2 mg/dL [facility] [place] Protein, sr 7.0 6.1 - 8.1 g/dL [facility] [place] Albumin 4.3 3.6 - 5.1 g/dL [facility] [place] GLOBULIN 2.7 1.9 - 3.7 g/dL (calc) [facility] [place] Alb/glob ratio 1.6 1.0 - 2.5 (calc) [facility] [place] Bilirubin, total 0.2 0.2 - 1.2 mg/dL [facility] [place] Alk phos 113 33 - 115 U/L [facility] [place] AST 12 10 - 30 U/L [facility] [place] ALT (SGPT) 15 6 - 29 U/L [facility] [place] Blood specimen (specimen) 04/23/2019 1:43 PM [employer] 04/23/2019 1:44 PM [employer] Narrative Resulting Agency Comment Performing Organization Information: ?Site ID: [id number] ?Name: [facility] ?Address: [address] [place] [address] [place] [phone] ?Director: Curtis Noe D.O., MPH us Miriam [facility] BLOOD ORDERAB LES Final Result [facility] [place] * (ABNORMAL) CBC with auto differential (04/23/2019 1:43 PM [employer]) WBC 7.7 3.8 - 10.8 Thousand/u L [facility] [place] RBC, POC 4.70 3.80 - 5.10 Million/uL [facility] [place] Hgb 11.1(L) 11.7 - 15.5 g/dL [facility] [place] Hct 35.6 35.0 - 45.0 % [facility] [place] MCV 75.7(L) 80.0 - 100.0 fL [facility] [place] MCH 23.6(L) 27.0 - 33.0 pg [facility] [place] MCHC 31.2(L) 32.0 - 36.0 g/dL [facility] [place] Rdw 15.7(H) 11.0 - 15.0 % [facility] [place] Platelets 514(H) 140 - 400 Thousand/u L [facility] [place] MPV 9.1 7.5 - 12.5 fL [facility] [place] Neutrophils, abs 5,159 1,500 - 7,800 cells/uL [facility] [place] Lymphocytes, abs 1,871 850 - 3,900 cells/uL [facility] [place] Monocyte abs 408 200 - 950 cells/uL [facility] [place] Eosinophils, abs 154 15 - 500 cells/uL [facility] [place] Basophils, abs 108 0 - 200 cells/uL [facility] [place] Neutrophils 67 % [facility] [place] Lymphocyte pct 24.3 % [facility] [place] Monocytes 5.3 % [facility] [place] Eosinophils 2.0 % [facility] [place] Basophils 1.4 % [facility] [place] Blood specimen (specimen) 04/23/2019 1:43 PM [employer] 04/23/2019 1:44 PM [employer] Narrative Resulting Agency Comment Performing Organization Information: ?Site ID: [facility] ?Name: [facility] ?Address: [address] [place], [place] [address] [address] ?Director: Curtis Noe D.O., MPH us Miriam [facility] BLOOD ORDERAB LES Final Result [facility] [place] documented in this encounter Visit Diagnoses Diagnosis Rheumatoid arthritis of multiple sites without rheumatoid factor (CMS/HCC) (HCC)- Primary Osteoporosis without current pathological fracture, unspecified osteoporosis type Encounter for long-term (current) use of medications Encounter for long-term (current) use of other medications Meredith-Danlos disease Meredith-Danlos syndrome Frequent infections documented in this encounter Discontinued Medications Medication Sig Discontinue Reason Start Date End Da te azaTHIOprine (IMURAN) 50 mg tablet TAKE 1 TABLET BY MOUTH TWICE DAILY Reorder 12/31/2018 04/23/2019 documented as of this encounter Care Teams Ship'S Captain Relationship Specialty Start Date End Date Isaiah Quiros MD [address] [place] [address] PCP - General Internal Medicine 04/01/17 06/02/20 Isaiah Quiros MD [address] [place] [address] Internal Medicine 02/18/17 03/19/21 Cash Heath III, MD [address] [place] [address] Rheumatology 04/12/17 documented as of this encounter
--- OUTSIDE RECORDS SUMMARY | 2024-04-29 19:24 | XMS_ITS | Encounter Summary ---
Author Organization [facility] Address [address] [place] [phone] Phone Care Team Providers Care Music Library Assistant Name Role Phone Isaiah Quiros MD Unavailable Isaiah Quiros MD Primary Care Provider [phone] Kumar CARRILLO MD, Cash Howard Unavailable [phone] Alex Mahajan MD Unavailable [phone] Reason for Referral * Diagnostic Imaging (Routine) - Closed Specialty Diagnoses / Procedures Referred By Contmonserrat t Referred To Contact Diagnoses Rheumatoid arthritis of multiple sites without rheumatoid factor (CMS/[facility]) (HCC) Encounter for long-term (current) use of medications Osteoporosis without current pathological fracture, unspecified osteoporosis type Procedures US Hand Complete Miriam Frye PA [address] [place] [phone] Phone: tel: fax: External Order Referral ID Status Reason Start Date Expiration Date Visits Re quested Visits Authorized [id number] Closed 09/10/2019 03/21/2021 1 1 Reason for Visit * Reason Comments Rheumatoid Arthritis Encounter Details Date Type Department Care Team (Late st Contact Info) Description 09/10/2019 9:15 AM CDT Office Visit [facility] [address] [place] [phone] Miriam Frye PA [address] [place] [address] Rheumatoid arthritis of multiple sites without rheumatoid factor (CMS/HCC) (Primary Dx); Encounter for long-term (current) use of medications; Frequent infections; Meredith-Danlos disease; Osteoporosis without current pathological fracture, unspecified osteoporosis type Social History Tobacco Use Types Packs/Day Years Used Date Smoking Tobacco: Never Alcohol Use Standard Drinks/Week Comments No 0 (1 standard drink = 0.6 oz pur e alcohol) Comments No Sex and Gender Information Value Date Recorded Sex Assigned at Not on file Legal Sex Female 9:24 PM [employer]ED [employer] Gender Identity Female 08/14/2022 11:32 AM CDT Sexual Orientation Straight 02/13/2023 7: 01 AM CDT documented as of this encounter Last Filed Vital Signs Vital Sign Reading Time Taken Comments Blood Pressure 136/78 09/10/2019 9:23 AM CDT Pulse - - Temperature 36.6 ??C (97.9 ??F) 09/10/2019 9:23 AM CD T Respiratory Rate - - Oxygen Saturation - - Inhaled Oxygen Concentration - - Weight 101.2 kg (223 lb) 09/10/2019 9:23 AM CDT Height 167.6 cm (5' 6 ) 09/10/2019 9:23 AM CDT Body Mass Index 35.99 09/10/2019 9:23 AM CDT documented in this encounter Patient Instructions * Patient Instructions* Miriam Frye PA - 09/10/2019 9:15 AM CDT Patient Education Triamcinolone (By injection) Triamcinolone ([id number]-[id number]) Treats many diseases and conditions, especially problems [...] pharmacist before using any other medicine, including abyw-teo-hunbwul medicines, vitamins, and herbal products. ?? There [...] may report side effects to FDA at 3-854-DKJ-5950 ?? 2017 [employer] Information is for End User's use only and may not be sold, redistributed or otherwise used for commercial purposes. The above information is an hospital aide only. It is not intended as medical advice for individual conditions or treatments. Talk to your doctor, nurse or pharmacist before following any medical regimen to see if it is safe and effective for you. Check cbc/cmp in 2 weeks. documented in this encounter Ordered Prescriptions Prescription Sig Dispense Quantity Refills Last Filled Start Date End Date azaTHIOprine (IMURAN) 50 mg tabletIndications:a utoimmune disease Take 2 tabs po qam and 1 tab po qpm. 90 tablet 1 09/10/2019 09/10/2019 documented in this encounter Progress Notes * Miriam Frye PA - 09/10/2019 9:15 AM CDT Images from the original note were not included. Subjective/Objective Patient ID: Julian Smith is a 44 y.o. female. Chief Complaint Joint pain HPI On orencia sq since last visit, had 5 inj so far. Not feeling much better yet. Hands are swollen and painful. No sob, cp, rashes, oral or nose ulcers. Hands stiff all day but worse in am. Hard to move at time due to joint stiffness. No infections, fever, chills. No se from orencia or imuran. Review of Systems Constitutional: Negative for fatigue [...] Lab Results Component Value Date WBC 6.5 07/09/2019 HGB 11.6 (L) 07/09/2019 HCT 37.9 07/09/2019 MCV 77.3 (L) 07/09/2019 Lab Results Component Value Date GLUCOSE 87 07/09/2019 CALCIUM 9.2 07/09/2019 SODIUM 134 (L) 07/09/2019 POTASSIUM 4.3 07/09/2019 CO2 23 07/09/2019 CHLORIDE 111 (H) 07/09/2019 BUNSER 15 07/09/2019 CREATININE 0.86 07/09/2019 Lab Results Component Value Date ALT 13 07/09/2019 AST 12 07/09/2019 ALKPHOS 100 07/09/2019 BILITOT 0.3 07/09/2019 Lab Results Component Value Date SEDRATE 11 07/09/2019 Lab Results Component Value Date CRP 7.9 07/09/2019 Assessment/Plan Diagnoses and all orders for this visit: Rheumatoid arthritis of multiple sites without rheumatoid factor (CMS/HCC) (Primary) Assessment & Plan: High cdai. On orencia sq since last [...] of systemic steroid discussed with pt. ?? Orders: - CBC with auto differential; Future - Comprehensive metabolic panel; Future - CRP (acute phase); Future - Erythrocyte sedimentation rate; Future - avise - Miscellaneous Test; Future - Direct Antiglobulin Test (JACKELYN) with Reflex to Anti C3 and Anti IgG; Future - US Hand Complete; Future - triamcinolone (KENALOG) 40 mg/mL injection [...] Future - Erythrocyte sedimentation rate; Future - avise - Miscellaneous Test; Future - Direct Antiglobulin Test (JACKELYN) with Reflex to Anti C3 and Anti IgG; Future - US Hand Complete; Future Frequent infections Assessment & Plan: Normal serum immunoglobulins. Meredith-Danlos disease Assessment & Plan: Was advised at last visit to get chest CT to r/o aortic aneurysm, to discuss with pcp. Osteoporosis without current pathological fracture, unspecified osteoporosis type Assessment & Plan: bds checked by pcp in past, is taking ca and vit d and pcp checked vit D and PTH per pt was wnl. Her pcp started her on alendronate 70mg po qweek. Taking ca + vit d 1200mg qd. Orders: - CBC with auto differential; Future - Comprehensive metabolic panel; Future - CRP (acute phase); Future - Erythrocyte sedimentation rate; Future - avise - Miscellaneous Test; Future - Direct Antiglobulin Test (JACKELYN) with Reflex to Anti C3 and Anti IgG; Future - US Hand Complete; Future Other orders - azaTHIOprine (IMURAN) 50 mg tablet; Take 2 tabs po qam and 1 tab po qpm. Cosigned by Cash Woodruff III, MD at 09/10/2019 4:16 PM CDT documented in this encounter Miscellaneous Notes * Result Encounter Note - Miriam Frye PA - 09/11/2019 3:02 PM CDT Crp elevated. * Assessment & Plan Note - Miriam Frye PA - 09/10/2019 7:31 AM CDTAssociated Problem(s): Meredith-Danlos disease Was advised at last visit to get chest CT to r/o aortic aneurysm, to discuss with pcp. * Assessment & Plan Note - Miriam Frye PA - 09/10/2019 7:30 AM CDTAssociated Problem(s): Encounter for long-term (current) [...] pcp 2018 and it showed osteoporosis ?? * Assessment & Plan Note - Miriam Frye PA - 09/10/2019 7:30 AM CDTAssociated Problem(s): Frequent infections Normal serum immunoglobulins. * Assessment & Plan Note - Miriam Frye PA - 09/10/2019 7:30 AM CDTAssociated Problem(s): Osteoporosis without current pathological fracture bds checked by pcp in past, is taking ca and vit d and pcp checked vit D and PTH per pt was wnl. Her pcp started her on alendronate 70mg po qweek. Taking ca + vit d 1200mg qd. * Assessment & Plan Note - Miriam Frye PA - 09/10/2019 7:29 AM CDTAssociated Problem(s): Psoriatic arthritis (HCC) High cdai. On orencia sq since last [...] of systemic steroid discussed with pt. ?? documented in this encounter Plan of Treatment Not on file documented as of this encounter Procedures Procedure Name Priority Date/Time Associated Diagnosis Comments DIRECT ANTIGLOBULIN TEST (JACKELYN) REFLEX TO ANTI C3 AND ANTI IGG Routine 09/10/2019 10:34 AM CDT Rheumatoid arthritis of multiple sites without rheumatoid factor ([facility]) Encounter for long-term (current) use of medications Osteoporosis without current pathological fracture, unspecified osteoporosis type CBC WITH AUTO DIFFERENTIAL Routine 09/10/2019 10:34 AM CDT Rheumatoid arthritis of multiple sites without rheumatoid factor ([facility]) Encounter for long-term (current) use of medications Osteoporosis without current pathological fracture, unspecified osteoporosis type ERYTHROCYTE SEDIMENTATION RATE Routine 09/10/2019 10:34 AM CDT Rheumatoid arthritis of multiple sites without rheumatoid factor ([facility]) Encounter for long-term (current) use of medications Osteoporosis without current pathological fracture, unspecified osteoporosis type CRP (ACUTE PHASE) Routine 09/10/2019 10: 34 AM CDT Rheumatoid arthritis of multiple sites without rheumatoid factor ([facility]) Encounter for long-term (current) use of medications Osteoporosis without current pathological fracture, unspecified osteoporosis type COMPREHENSIVE METABOLIC PANEL Routine 09/10/2019 10:34 AM CDT Rheumatoid arthritis of multiple sites without rheumatoid factor ([facility]) Encounter for long-term (current) use of medications Osteoporosis without current pathological fracture, unspecified osteoporosis type MISCELLANEOUS LAB TEST Routine 09/10/2019 Rheumatoid arthritis of multiple sites without rheumatoid factor ([facility]) Encounter for long-term (current) use of medications Osteoporosis without current pathological fracture, unspecified osteoporosis type documented in this encounter Results * US Hand Complete (10/01/2019 9:28 AM CDT) Anatomical Region Laterality Modality Hand N/A Ultrasound us Miriam MALAGON US PROCEDURES Final Result * Direct Antiglobulin Test (JACKELYN) with Reflex to Anti C3 and Anti IgG (09/10/2019 10:34 AM CDT) Wang, Direct w/ Reflex Anti C3, Anti IgG NEGATIVE NEGATIVE [facility] 09/10/2019 10:3 4 AM CDT 09/10/2019 10:37 AM CDT Miriam [facility]LE LAB BLOOD BANK TE ST ORDERABLES Final Result Performing Organization Address [facility] Co de Phone Number QUEST [facility] [address] [place] [address] * Erythrocyte sedimentation rate (09/10/2019 10:34 AM CDT) [facility] Erythrocyte sedimentation rate 11 < OR = 20 mm/h [facility] Blood specimen (specimen) 09/10/2019 10:34 AM CDT 09/10/2019 10:37 AM CDT Miriam VALLE LAB BLOOD ORDERAB LES Final Result Performing Organization Address [facility] Co de Phone Number QUEST [facility] [address] [place] [address] * (ABNORMAL) CRP (acute phase) (09/10/2019 10:34 AM CDT) [facility] C-RP 23.5(H) <8.0 mg/L [facility] Blood specimen (specimen) 09/10/2019 10:34 AM CDT 09/10/2019 10:37 AM CDT Miriam VALLE LAB BLOOD ORDERAB LES Final Result Performing Organization Address [facility] Co de Phone Number [facility]ST [facility] [address] [place] [address] * (ABNORMAL) Comprehensive metabolic panel (09/10/2019 10:34 AM CDT) [facility] Glucose 105(H) 65 - 99 mg/dL [facility] Comment: ? Fasting reference interval For someone without known diabetes, a glucose value between 100 and 125 mg/dL is consistent with prediabetes and should be confirmed with a follow-up test. BUN 12 7 - 25 mg/dL [facility] Creatinine 0.97 0.50 - 1.10 mg/dL [facility] eGFR NON-AFR. SCOTTISH 71 > OR = 60 mL/min/1. 73m2 [facility] EGFR 82 > OR = 60 mL/min/1. 73m2 [facility] BUN/creat ratio NOT APPLICABLE 6 - 22 (calc) [facility] Sodium 137 135 - 146 mmol/L [facility] Potassium, pl 3.5 3.5 - 5.3 mmol/L [facility] Chloride 101 98 - 110 mmol/L [facility] CO2 24 20 - 32 mmol/L [facility] Calcium 9.1 8.6 - 10.2 mg/dL [facility] Protein, sr 6.7 6.1 - 8.1 g/dL [facility] Albumin 3.9 3.6 - 5.1 g/dL [facility] GLOBULIN 2.8 1.9 - 3.7 g/dL (calc) [facility] Alb/glob ratio 1.4 1.0 - 2.5 (calc) [facility] Bilirubin, total 0.2 0.2 - 1.2 mg/dL [facility] Alk phos 104 31 - 125 U/L [facility] AST 25 10 - 35 U/L [facility] ALT (SGPT) 81(H) 6 - 29 U/L [facility] Blood specimen (specimen) 09/10/2019 10:34 AM CDT 09/10/2019 10:37 AM CDT us Miriam VALLE LAB BLOOD ORDERAB LES Final Result [facility] [address] [address] * (ABNORMAL) CBC with auto differential (09/10/2019 10:34 AM CDT) WBC 7.3 3.8 - 10.8 Thousand/u L [facility] RBC, POC 4.91 3.80 - 5.10 Million/uL [facility] Hgb 12.9 11.7 - 15.5 g/dL [facility] Hct 40.6 35.0 - 45.0 % [facility] MCV 82.7 80.0 - 100.0 fL [facility] MCH 26.3(L) 27.0 - 33.0 pg [facility] MCHC 31.8(L) 32.0 - 36.0 g/dL [facility] Rdw 16.8(H) 11.0 - 15.0 % [facility] Platelets 351 140 - 400 Thousand/u L [facility] MPV 9.5 7.5 - 12.5 fL [facility] Neutrophils, abs 3,927 1,500 - 7,800 cells/uL [facility] Lymphocytes, abs 2,577 850 - 3,900 cells/uL [facility] Monocyte abs 394 200 - 950 cells/uL [facility] Eosinophils, abs 314 15 - 500 cells/uL [facility] Basophils, abs 88 0 - 200 cells/uL [facility] Neutrophils 53.8 % [facility] Lymphocyte pct 35.3 % [facility] Monocytes 5.4 % [facility] Eosinophils 4.3 % [facility] Basophils 1.2 % [facility] Blood specimen (specimen) 09/10/2019 10:34 AM CDT 09/10/2019 10:37 AM CDT Miriam [facility]LE LAB BLOOD ORDERAB LES Final Result [facility] [address] [place] [address] * avise - Miscellaneous Test (09/10/2019) Miscellaneous us Miriam [facility] LAB BLOOD ORDERAB LES Final Result EXTERNAL LAB documented in this encounter Visit Diagnoses Diagnosis Rheumatoid arthritis of multiple sites without rheumatoid factor (CMS/HCC) (HCC)- Primary Encounter for long-term (current) use of medications Encounter for long-term (current) use of other medications Frequent infections Meredith-Danlos disease Meredith-Danlos syndrome Osteoporosis without current pathological fracture, unspecified osteoporosis type documented in this encounter Discontinued Medications Medication Sig Discontinue Reason Start Date End Da te azaTHIOprine (IMURAN) 50 mg tablet TAKE 1 TABLET BY MOUTH TWICE DAILY Reorder 07/23/2019 09/10/2019 documented as of this encounter Orders Medications Ordered That Doron ht Not Have Been Administered Count Last Ordered Date First Ordered Date triamcinolone (KENALOG) 40 m g/mL injection 100 mg 1 09/10/2019 documented in this encounter Care Teams Music Library Assistant Relationship Specialty Start Date End Date Isaiah Quiros MD [address] [place] [address] PCP - General Internal Medicine 04/01/17 06/02/20 Isaiah Quiros MD [address] [place] [address] Internal Medicine 02/18/17 03/19/21 Cash Woodruff III, MD [address] [place] [address] Rheumatology 04/12/17 Alex Mahajan MD [address] [place] [address] Referring Physician Internal Medicine 05/07/19 1 documented as of this encounter
--- OUTSIDE RECORDS SUMMARY | 2024-04-29 19:24 | XMS_ITS | Encounter Summary ---
Author Organization [facility] Facility Care Team Providers Care Hydrologic Modeler Name Role Phone Isaiah Quiros MD Unavailable Isaiah Quiros MD Primary Care Provider [phone] Kumar CARRILLO MD, Cash Howard Unavailable Encounter Details Date Type Department Care Team (Latest Contact Info) Description 04/30/2019 Travel Social History Tobacco Use Types Packs/Day Years Used Date Smoking Tobacco: Never Alcohol Use Standard Drinks/Week Comments No 0 (1 standard drink = 0.6 oz pur e alcohol) Comments No Sex and Gender Information Value Date Recorded Sex Assigned at Not on file 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[employer] Gender Identity Female 08/14/2022 11:32 AM CDT Sexual Orientation Straight 02/13/2023 7: 01 AM CDT documented as of this encounter Plan of Treatment Not on file documented as of this encounter Visit Diagnoses Not on filedocumented in this encounter Care Teams Hydrologic Modeler Relationship Specialty Start Date End Date Isaiah Quiros MD [address] [place] [address] PCP - General Internal Medicine 04/01/17 06/02/20 Isaiah Quiros MD [address] [place] [address] Internal Medicine 02/18/17 03/19/21 Cash Heath III, MD [address] [address] Rheumatology 04/12/17 documented as of this encounter
--- OUTSIDE RECORDS SUMMARY | 2024-04-29 19:24 | XMS_ITS | Encounter Summary ---
Author Organization [facility] logy Address [address] [place] [address] Phone Care Team Providers Care Seed Collector Name Role Phone Isaiah Quiros MD Unavailable Isaiah Quiros MD Primary Care Provider [phone] Kumar CARRILLO MD, John J. Unavailable [phone] Reason for Visit * Reason Comments Rheumatoid Arthritis Encounter Details Date Type Department Care Team (Late st Contact Info) Description 09/18/2018 10:30 AM CDT Office Visit [facility] [address] [address] Miriam Frye PA [address] [place] [phone] Rheumatoid arthritis of multiple sites without rheumatoid factor (CMS/[facility]) (Primary Dx); Encounter for long-term (current) use of medications; Hypermobile joints; Meredith-Danlos disease; Osteoporosis without current pathological fracture, unspecified osteoporosis type Social History Tobacco Use Types Packs/Day Years Used Date Smoking Tobacco: Never Alcohol Use Standard Drinks/Week Comments No 0 (1 standard drink = 0.6 oz pur e alcohol) Comments No Sex and Gender Information Value Date Recorded Sex Assigned at Not on file 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 Gender Identity Female 08/14/2022 11:32 AM CDT Sexual Orientation Straight 02/13/2023 7: 01 AM CDT documented as of this encounter Last Filed Vital Signs Vital Sign Reading Time Taken Comments Blood Pressure 126/80 09/18/2018 10:44 AM CDT Pulse 76 09/18/2018 10:44 AM CDT Temperature - - Respiratory Rate - - Oxygen Saturation - - Inhaled Oxygen Concentration - - Weight 86.2 kg (190 lb) 09/18/2018 10:44 AM CDT Height 167.6 cm (5' 6 ) 09/18/2018 10:44 AM CDT Body Mass Index 30.67 09/18/2018 10:44 AM CDT documented in this encounter Ordered Prescriptions Prescription Sig Dispense Quantity Refills Last Filled Start Date End Date azaTHIOprine (IMURAN) 50 mg tablet Take 1 tablet (50 mg total) by mouth 2 (two) times a day 60 tablet 1 09/18/2018 11/27/2018 documented in this encounter Progress Notes * Miriam Frye PA - 09/18/2018 10:30 AM CDT Images from the original note were not included. Subjective/Objective Patient ID: Madalyn Smith is a 43 y.o. female. Chief Complaint Joint pain HPI Continues to have a lot of joint pain. Tolerating imuran. Slight nausea occ but has not been takingit with food, takes it on empty stomach at night. No rashes, diarrhea. No abd pain. Hands still hurt and are swollen. On lyrica and cymbalta for her fiboro which have helped. No sob, cp, rashes, oralor nose ulcers Review of Systems Constitutional: Negative for fatigue and fever. HENT: Negative for mouth sores. Respiratory: Negative for cough, chest tightness and shortness of breath. Cardiovascular: Negative for chest pain. Skin: Negative for rash. Physical Exam Constitutional: He appears well-developed and well-nourished. Head: Normocephalic and [...] 3. Skin: Skin is warm and dry. pimple like lesions upper ant chest. Psychiatric: Normal mood. Vitals reviewed. Labs Lab Results Component Value Date WBC 7.5 09/17/2018 HGB 11.7 09/17/2018 HCT 38.8 09/17/2018 MCV 80.5 09/17/2018 Lab Results Component Value Date GLUCOSE 89 09/17/2018 CALCIUM 9.1 09/17/2018 SODIUM 138 09/17/2018 POTASSIUM 3.8 09/17/2018 CO2 25 09/17/2018 CHLORIDE 106 09/17/2018 BUNSER 11 09/17/2018 CREATININE 0.95 09/17/2018 Lab Results Component Value Date ALT 17 09/17/2018 AST 12 09/17/2018 ALKPHOS 83 09/17/2018 BILITOT 0.3 09/17/2018 Lab Results Component Value Date SEDRATE 8 08/01/2018 Lab Results Component Value Date CRP 3.3 08/01/2018 Rt Hand U/S 09/2017: Assessment/Plan Diagnoses and all orders for this visit: 1. Rheumatoid arthritis of multiple sites without rheumatoid factor (CMS/HCC) (Primary) Mod cdai. Orencia IV approved by insurance. They would not approve sq orencia. Also on imuran 50mg qd. CBC/CMP yesterday were stable. Increase imuran to 50mg bid, cbc/cmp in 2 weeks and f/u in 1 month. Plaquenil did not help in past. No hx of copd/emphysema. RF neg but has a possible family hx of psoriatic arthritis (father) so if she develops psoriasis diagnosis will change to psoriatic arthritis. Labs stable 08/01/18.TPMT wnl. 2. Encounter for long-term (current) use of medications Quant gold neg 09/2017 TPMT nl 17 Weight loss with imuran, stopped it 01/2017 Failed humira Plaquenil failure Imuran caused weight loss 2016 Hep B and C neg 2015 Failed Enbrel and humira TPMT wnl 06/2016 BDS done by pcp 2018 and it showed osteoporosis 3. 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 5. Osteoporosis without current pathological fracture, unspecified osteoporosis type---bds checked by pcp in past, is taking ca and vit d and pcp checked vit D and PTH per pt was wnl. Her pcp startedher on alendronate 70mg po qweek. Ttaking ca + vit d 1200mg qd. Cosigned by Cash Heath III, MD at 09/18/2018 5:37 PM CDT documented in this encounter Plan of Treatment Not on file documented as of this encounter Procedures Procedure Name Priority Date/Time Associated Diagnosis Comments TB TEST, QUANTIFERON GOLD Routine 09/29/2018 12:55 PM CDT CBC WITH AUTO DIFFERENTIAL Routine 09/29/2018 12:55 PM CDT Rheumatoid arthritis of multiple sites without rheumatoid factor (CMS/HCC) COMPREHENSIVE METABOLIC PANEL Routine 09/29/2018 12:55 PM CDT Rheumatoid arthritis of multiple sites without rheumatoid factor (CMS/HCC) documented in this encounter Results * TB test, quantiferon gold (09/29/2018 12:55 PM CDT) QuantiFERON(R)-T B Gold Plus, 1 Tube NEGATIVE NEGATIVE [facility] [place] Comment: Negative test result. M. tuberculosis complex infection unlikely. NIL 0.01 IU/mL [facility] MITOGEN-NIL 9.59 IU/mL [facility] TB1-NIL 0.00 IU/mL [facility] TB2-NIL 0.00 IU/mL [facility] Comment: The Nil tube value reflects the background interferon gamma immune response of the patient's blood sample. This value has been subtracted from the patient's displayed TB and Mitogen results. Lower than expected results with the Mitogen tube prevent false-negative Quantiferon readings by detecting a patient with a potential immune suppressive condition and/or suboptimal pre-analytical specimen handling. The TB1 Antigen tube is coated with the M. tuberculosis-specific antigens designed to elicit responses from TB antigen primed CD4+ helper T-lymphocytes. The TB2 Antigen tube is coated with the M. tuberculosis-specific antigens designed to elicit responses from TB antigen primed CD4+ helper and CD8+ cytotoxic T-lymphocytes. For additional information, please refer to https://education.[employer]/faq/PJU832 (This link is being provided for informational/ educational purposes only.) 09/29/2018 12:5 5 PM CDT 09/29/2018 12:56 PM CDT Narrative Resulting Agency Comment Performing Organization Information: ?Site ID: [place] ?Name: [employer] ?Address: [address] [place], [place] [address]W[place] [address] ?Director: Curtis Noe D.O., MPH us Miriam VALLE LAB BLOOD ORDERAB LES Final Result [facility] [place] * Comprehensive metabolic panel (09/29/2018 12:55 PM CDT) Glucose 76 65 - 99 mg/dL [facility] [place] Comment: ? Fasting reference interval BUN 15 7 - 25 mg/dL [facility] Creatinine 0.95 0.50 - 1.10 mg/dL [facility] eGFR NON-AFR. SWISS 73 > OR = 60 mL/min/1. 73m2 [facility] EGFR 84 > OR = 60 mL/min/1. 73m2 [facility] [place] BUN/creat ratio NOT APPLICABLE 6 - 22 (calc) [facility] Sodium 137 135 - 146 mmol/L [facility] Potassium, pl 4.0 3.5 - 5.3 mmol/L [facility] Chloride 103 98 - 110 mmol/L [facility] CO2 25 20 - 32 mmol/L [facility] Calcium 9.4 8.6 - 10.2 mg/dL [facility] [place] Protein, sr 7.4 6.1 - 8.1 g/dL [facility] [place] Albumin 4.5 3.6 - 5.1 g/dL [facility] [place] GLOBULIN 2.9 1.9 - 3.7 g/dL (calc) [facility] [place] Alb/glob ratio 1.6 1.0 - 2.5 (calc) [facility] Bilirubin, total 0.4 0.2 - 1.2 mg/dL [facility] [place] Alk phos 78 33 - 115 U/L [facility] AST 14 10 - 30 U/L [facility] ALT (SGPT) 16 6 - 29 U/L [facility] Blood specimen (specimen) 09/29/2018 12:55 PM CDT 09/29/2018 12:56 PM CDT Narrative Resulting Agency Comment Performing Organization Information: ?Site ID: [place] ?Name: Isabel Sims ?Address: [facility] [place] [id number] ?Director: Curtis Noe D.O., MPH us Miriam VALLE LAB BLOOD ORDERAB LES Final Result ISABEL [facility] [place] * (ABNORMAL) CBC with auto differential (09/29/2018 12:55 PM CDT) WBC 5.5 3.8 - 10.8 Thousand/u L [facility] RBC, POC 4.90 3.80 - 5.10 Million/uL [facility] Hgb 12.0 11.7 - 15.5 g/dL [facility] Hct 38.9 35.0 - 45.0 % [facility] MCV 79.4(L) 80.0 - 100.0 fL [facility] MCH 24.5(L) 27.0 - 33.0 pg [facility] MCHC 30.8(L) 32.0 - 36.0 g/dL [facility] Rdw 16.8(H) 11.0 - 15.0 % [facility] Platelets 388 140 - 400 Thousand/u L [facility] MPV 9.0 7.5 - 12.5 fL [facility] Neutrophils, abs 3,476 1,500 - 7,800 cells/uL [facility] Lymphocytes, abs 1,518 850 - 3,900 cells/uL [facility] Monocyte abs 418 200 - 950 cells/uL [facility] Eosinophils, abs 28 15 - 500 cells/uL [facility] Basophils, abs 61 0 - 200 cells/uL [facility] Neutrophils 63.2 % [facility] Lymphocyte pct 27.6 % [facility] Monocytes 7.6 % [facility] Eosinophils 0.5 % [facility] Basophils 1.1 % [facility] Blood specimen (specimen) 09/29/2018 12:55 PM CDT 09/29/2018 12:56 PM CDT Narrative Resulting Agency Comment Performing Organization Information: ?Site ID: WILLAM ?Name: Isabel Sims ?Address: [facility] [place] [id number] ?Director: Curtis Noe D.O., TORI Miriam VALLE LAB BLOOD ORDERAB LES Final Result [facility] [place] Rao documented in this encounter Visit Diagnoses Diagnosis Rheumatoid arthritis of multiple sites without rheumatoid factor ([facility]) ([facility])- Primary Encounter for long-term (current) use of medications Encounter for long-term (current) use of other medications Hypermobile joints Other joint derangement, not elsewhere classified, unspecified site Meredith-Danlos disease Meredith-Danlos syndrome Osteoporosis without current pathological fracture, unspecified osteoporosis type documented in this encounter Discontinued Medications Medication Sig Discontinue Reason Start Date End Da te azaTHIOprine (IMURAN) 50 mg tablet TAKE 1 TABLET(50 MG) BY MOUTH DAILY Reorder 09/08/2018 09/18/2018 documented as of this encounter Care Teams Seed Collector Relationship Specialty Start Date End Date Isaiah Quiros MD [address] [place] [address] PCP - General Internal Medicine 04/01/17 06/02/20 Isaiah Quiros MD [address] [place] [address] Internal Medicine 02/18/17 03/19/21 Cash Heath III, MD [address] [facility] [address] [place] [address] Rheumatology 04/12/17 documented as of this encounter
--- OUTSIDE RECORDS SUMMARY | 2024-04-29 19:24 | XMS_ITS | Encounter Summary ---
Author Organization [facility] Healthcare Address [address] [place] [address] Care Team Providers Care Bulk Filler Name Role Phone Isaiah Quiros MD Unavailable Isaiah Quiros MD Primary Care Provider [phone] Kumar CARRILLO MD, Cash Howard Unavailable [phone] Encounter Details Date Type Department Care Team (Late st Contact Info) Description 09/08/2018 12:01 AM CDT Hospital Encounter [facility] OP INTERIM Curtis Oseguera MD [facility] [address] [address] Social History Tobacco Use Types Packs/Day Years Used Date Smoking Tobacco: Never Alcohol Use Standard Drinks/Week Comments No 0 (1 standard drink = 0.6 oz pur e alcohol) Comments No Sex and Gender Information Value Date Recorded Sex Assigned at Not on file 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 MAY REPEAT AFTER 2 H IF MERCADO RETURNS. MAXIMUM 4 TS IN 24 H 0 07/09/2016 alendronate (FOSAMAX) 70 mg tablet 1 09/02/2018 01/18/20 23 clonazePAM (KlonoPIN) 0.5 mg tablet 3 07/30/2018 08/31/19 22 cyclobenzaprine (FLEXERIL) 5 mg tablet TAKE 1 TABLET BY ORAL ROUTE EVERY BEDTIME 30 0 11/03/2015 08/31/19 22 doxycycline (DORYX) 100 mg EC tablet 100 mg every 12 (twelve) hours 12/19/2016 08/31/[address] (CYMBALTA) 60 mg capsule take 1 capsule by oral route every day 0 0 06/29/2015 02/07/20 21 guaiFENesin (ROBITUSSIN) syrup 100 mg/5 mL Take 10 mL by mouth every 6 hours 02/02/2017 11/01/19 19 guaiFENesin-dextrom ethorphan ER (MUCINEX DM) 600-30 mg tablet extended release 12 hr Take 1 tablet by mouth 02/02/2017 08/31/19 22 HYDROcodone-acetami nophen (NORCO) 5-325 mg per tablet TK 1 T PO Q 4-6 H PRN 0 08/20/2018 07/09/19 20 hyoscyamine (OSCIMIN) 0.125 mg Take 0.125 mg by mouth every 3 hours 08/05/2015 08/31/19 22 linaclotide (LINZESS) 145 mcg capsule Take 145 mcg by mouth 09/15/2015 09/01/19 22 LYRICA 75 mg capsule TK ONE C PO BID 2 08/17/2018 09/01/19 22 nitrofurantoin monohydrate (MACROBID) 100 mg capsule TK 1 C PO Q 12 H 0 09/03/2018 12/25/19 19 norethindrone-ethin yl estradiol-iron (LOESTRIN FE 1.09/18, 28-DAY,) 1.5 mg-30 mcg per tabletIndications:P elvic and perineal pain Take 1 tablet by mouth daily 28 tablet 12 09/09/2018 12/25/19 19 omeprazole (PriLOSEC) 10 mg capsule take 2 capsule by oral route every day before a meal 0 0 05/17/2016 08/31/19 22 ondansetron ODT (ZOFRAN-ODT) 8 mg disintegrating tablet DISSOLVE ONE TABLET ON TONGUE EVERY 8 HOURS X 2 DAYS DIRECTED 60 tablet 04/23/2018 10/28/19 19 oxyCODONE-acetamino phen (PERCOCET) 5-325 mg per tablet TK 1 T PO PRN Q 6 H 0 09/03/2018 08/31/19 22 raNITIdine (ZANTAC) 50 mg/2 mL (25 mg/mL) injection infuse by intravenous route every 8 hours over 0 vial 0 05/17/2016 08/31/19 22 Saccharomyces boulardii (FLORASTOR) 250 mg capsule Take 250 mg by mouth 02/02/2017 01/18/20 23 sucralfate (CARAFATE) suspension 1 gram/10 mL TAKE 10 ML BY MOUTH FOUR TIMES DAILY BEFORE MEALS AND NIGHTLY 10/15/2017 09/01/19 22 documented as of this encounter Plan of Treatment Not on file documented as of this encounter Procedures Procedure Name Priority Date/Time Associated Diagnosis Comments SCAN - PATHOLOGY 09/10/2018 12:0 0 AM CDT documented in this encounter Results * SCAN - PATHOLOGY (09/10/2018 12:00 AM CDT) Narrative 09/10/2018 12:00 AM CDT Ordered by an unspecified provider. us Historical Provider Final Res ult documented in this encounter Visit Diagnoses Not on filedocumented in this encounter Care Teams Bulk Filler Relationship Specialty Start Date End Date Isaiah Quiros MD [address] [place], [place] [id number] PCP - General Internal Medicine 04/01/17 06/02/20 Isaiah Quiros MD [address] [place], [place] [id number] Internal Medicine 02/18/17 03/19/21 Cash Heath III, MD [address] [facility] [address] [place] [address] Rheumatology 04/12/17 documented as of this encounter
--- OUTSIDE RECORDS SUMMARY | 2024-04-29 19:24 | XMS_ITS | Encounter Summary ---
Author Organization [facility] Address [address] [place] [address] Phone Care Team Providers Care Cargo Worker Name Role Phone Isaiah Quiros MD Unavailable Isaiah Quiros MD Primary Care Provider [phone] Kumar CARRILLO MD, John J. Unavailable [phone] Alex Mahajan MD Unavailable [phone] Reason for Referral * Medication Authorization - Closed Specialty Diagnoses / Procedures Referred By Contac t Referred To Contact Diagnoses Rheumatoid arthritis of multiple sites without rheumatoid factor ([facility]) ([facility]) Cash Heath III, MD [address] [place] [address] Phone: tel: fax: Referral ID Status Reason Start Date Expiration Date Visits Re quested Visits Authorized [id number] Closed 01/19/2020 02/17/2021 1 1 Encounter Details Date Type Department Care Team (Late st Contact Info) Description 01/19/2020 Orders Only [facility] [address] [place] [address] Cash Heath III, MD [address] [place] [address] Rheumatoid arthritis of multiple sites without rheumatoid factor (CMS/HCC) (Primary Dx) Social History Tobacco Use Types Packs/Day Years Used Date Smoking Tobacco: Never Alcohol Use Standard Drinks/Week Comments No 0 (1 standard drink = 0.6 oz pur e alcohol) Comments No Sex and Gender Information Value Date Recorded Sex Assigned at Not on file 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 Gender Identity Female 08/14/2022 11:32 AM CDT Sexual Orientation Straight 02/13/2023 7: 01 AM CDT documented as of this encounter Progress Notes * Cash Heath III, MD - 01/19/2020 4:54 PM CDT or documented in this encounter Plan of Treatment Not on file documented as of this encounter Visit Diagnoses Diagnosis Rheumatoid arthritis of multiple sites without rheumatoid factor (CMS/HCC) (HCC)- Primary documented in this encounter Orders Medications Ordered That Doron ht Not Have Been Administered Count Last Ordered Date First Ordered Date abatacept (ORENCIA) 250 mg i njection 750 mg 1 01/19/2020 documented in this encounter Care Teams Cargo Worker Relationship Specialty Start Date End Date Isaiah Quiros MD [address] [place] [address] PCP - General Internal Medicine 04/01/17 06/02/20 Isaiah Quiros MD [address] [place] [address] Internal Medicine 02/18/17 03/19/21 Cash Heath III, MD [address] [place] [address] Rheumatology 04/12/17 Alex Mahajan MD [address] [facility] [facility] [address] [place] [address] Referring Physician Internal Medicine 05/07/19 1 documented as of this encounter
--- OUTSIDE RECORDS SUMMARY | 2024-04-29 19:24 | XMS_ITS | Encounter Summary ---
Author Organization [facility] Address [address] [place] [address] Phone Care Team Providers Care User Experience Lead Name Role Phone Isaiah Quiros MD Unavailable Isaiah Quiros MD Primary Care Provider [phone] Kumar CARRILLO MD, Cash Howard Unavailable [phone] Alex Mahajan MD Unavailable [phone] Reason for Visit * Reason Onset Date Comments Refill Denied 07/03/2019 Encounter Details Date Type Department Care Team (Late st Contact Info) Description 07/03/[address] [address] Tiara Rainey Refill Denied Social History Tobacco Use Types Packs/Day Years Used Date Smoking Tobacco: Never Alcohol Use Standard Drinks/Week Comments No 0 (1 standard drink = 0.6 oz pur e alcohol) Comments No Sex and Gender Information Value Date Recorded Sex Assigned at Not on file 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 Chart reviewed--pt last seen on 04/23/2019 &was told to f/u in 4 weeks. Pt has cancelled 3 appts since that 4 week time & has nothing scheduled currently. Called Sabrina & left vm to deny refill at this time. documented in this encounter Plan of Treatment Not on file documented as of this encounter Visit Diagnoses Not on filedocumented in this encounter Care Teams User Experience Lead Relationship Specialty Start Date End Date Isaiah Quiros MD [address] [place] [address] PCP - General Internal Medicine 04/01/17 06/02/20 Isaiah Quiros MD [address] [place] [address] Internal Medicine 02/18/17 03/19/21 Cash Heath III, MD [address] [place] [address] Rheumatology 04/12/17 Alex Mahajan MD [address] [place], [place] [id number] Referring Physician Internal Medicine 05/07/19 1 documented as of this encounter
--- OUTSIDE RECORDS SUMMARY | 2024-04-29 19:24 | XMS_ITS | Encounter Summary ---
Author Organization [facility] Address [address] [place] [address] Phone Care Team Providers Care Manager Residential Name Role Phone Isaiah Quiros MD Unavailable Isaiah Quiros MD Primary Care Provider Kumar CARRILLO MD, Cash Howard Unavailable [phone] Alex Mahajan MD Unavailable [phone] Encounter Details Date Type Department Care Team (Late st Contact Info) Description 10/19/2019 Telephone [facility] [address] [place] [phone] Miriam Frye PA [address] [place] [address] Social History Tobacco Use Types Packs/Day Years Used Date Smoking Tobacco: Never Alcohol Use Standard Drinks/Week Comments No 0 (1 standard drink = 0.6 oz pur e alcohol) Comments No Sex and Gender Information Value Date Recorded Sex Assigned at Not on file 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 Gender Identity Female 08/14/2022 11:32 AM CDT Sexual Orientation Straight 02/13/2023 7: 01 AM CDT documented as of this encounter Ordered Prescriptions Prescription Sig Dispense Quantity Refills Last Filled Start Date End Date traMADoL (ULTRAM) 50 mg tablet Take 1 tablet (50 mg total) by mouth every 8 (eight) hours as needed for pain 90 tablet 10/19/2019 12/23/2019 documented in this encounter Miscellaneous Notes * Telephone Encounter - Tiara Rainey - 10/19/2019 3:25 PM CDT Spoke w/pt & she said it really causes a lot of stomach pain w/nsaids right after she takes it.She said she just bought some Voltaren gel otc & wants to try that prior to sending script for Pennsaid. Tramadol called & charted. * Telephone Encounter - Miriam Frye PA - 10/19/2019 3:13 PM CDT In her allergies it said she had nausea and vomiting with ibuprofen. Can she take other nsaid's? * Telephone Encounter - Tiara Rainey - 10/19/2019 10:33 AM CDT You have to send the script for Pennsaid before I can attempt a PA. * Telephone Encounter - Miriam Frye PA - 10/19/2019 9:42 AM CDT Please refill her tramadol. ty * Telephone Encounter - Miriam Frye PA - 10/19/2019 9:39 AM CDT Can we try to get her pennsaid cream bid for her hand pain. She also has knee oa and has seen orthofor them in past. If she can't get it we can try for voltaren gel qid documented in this encounter Plan of Treatment Not on file documented as of this encounter Visit Diagnoses Not on filedocumented in this encounter Discontinued Medications Medication Sig Discontinue Reason Start Date End Da te traMADoL (ULTRAM) 50 mg tablet Take 1 tablet (50 mg total) by mouth every 8 (eight) hours as needed for pain Reorder 09/10/2019 10/19/2019 documented as of this encounter Care Teams Manager Residential Relationship Specialty Start Date End Date Isaiah Quiros MD [address] [place] [address] PCP - General Internal Medicine 04/01/17 06/02/20 Isaiah Quiros MD [address] [place] [address] Internal Medicine 02/18/17 03/19/21 Cash Heath III, MD [address] [place] [address] Rheumatology 04/12/17 Alex Mahajan MD [address] [place] [address] Referring Physician Internal Medicine 05/07/19 1 documented as of this encounter
--- OUTSIDE RECORDS SUMMARY | 2024-04-29 19:24 | XMS_ITS | Encounter Summary ---
Author Organization [facility] Address [address] [place] [address] Phone Care Team Providers Care Packager Name Role Phone Isaiah Quiros MD Unavailable Isaiah Quiros MD Primary Care Provider [phone] Kumar CARRILLO MD, Cash Howard Unavailable [phone] Alex Mahajan MD Unavailable [phone] Encounter Details Date Type Department Care Team (Late st Contact Info) Description 12/25/2019 Orders Only [facility] [address] [place] [address] Tiara Rainey Hematuria, unspecified type (Primary Dx) Social History Tobacco Use Types Packs/Day Years Used Date Smoking Tobacco: Never Alcohol Use Standard Drinks/Week Comments No 0 (1 standard drink = 0.6 oz pur e alcohol) Comments No Sex and Gender Information Value Date Recorded Sex Assigned at Not on file Legal Sex Female 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 Gender Identity Female 08/14/2022 11:32 AM CDT Sexual Orientation Straight 02/13/2023 7: 01 AM CDT documented as of this encounter Plan of Treatment Scheduled Orders Name Type Priority Associated Diagnoses Orde r Schedule Urinalysis reflex to microscopic and culture Urine, clean voided Microbiology Routine Hematuria, unspecified type Expected: 01/01/2020, Expires: 12/24/2020 documented as of this encounter Visit Diagnoses Diagnosis Hematuria, unspecified type- Primary documented in this encounter Care Teams Packager Relationship Specialty Start Date End Date Isaiah Quiros MD [address] [place] [address] PCP - General Internal Medicine 04/01/17 06/02/20 Isaiah Quiros MD [address] [place] [address] Internal Medicine 02/18/17 03/19/21 Cash Heath III, MD [address] [facility] [address] [place] [address] Rheumatology 04/12/17 Alex Mahajan MD [address] [facility] [address] [place] [address] Referring Physician Internal Medicine 05/07/19 1 documented as of this encounter
--- OUTSIDE RECORDS SUMMARY | 2024-04-29 19:24 | XMS_ITS | Encounter Summary ---
Author Organization [facility] Address [address] [place] [address] Care Team Providers Care Grease Buffer Name Role Phone Isaiah Quiros MD Unavailable Isaiah Quiros MD Primary Care Provider [phone] Kumar CARRILLO MD, Bryon. Unavailable [phone] Alex Mahajan MD Unavailable [phone] Encounter Details Date Type Department Care Team (Late st Contact Info) Description 05/11/[address] 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 Rx changed Per Dr. Oseguera. CTS SPECIALIST * Telephone Encounter - Helio Felipe MA - 05/14/2019 1:35 PM CST LMOM. Try and send to different pharmacy CTS SPECIALIST * Telephone Encounter - Curtis Oseguera MD - 05/11/2019 4:25 PM HIV CTS SPECIALIST Use age different generic or name brand Loestrin .09/18 if unable to get change to Loestrin 05/11. CTS SPECIALIST * Telephone Encounter - Helio Felipe MA - 05/11/2019 11:17 AM CST Pharmacy called saying the Blisovi .09/18 is unavailable right now from the tanker truck driver. What do you want to change hers to? CTS SPECIALIST documented in this encounter Plan of Treatment Not on file documented as of this encounter Visit Diagnoses Not on filedocumented in this encounter Care Teams Grease Buffer Relationship Specialty Start Date End Date Isaiah Quiros MD [address] [place] [address] PCP - General Internal Medicine 04/01/17 06/02/20 Isaiah Quiros MD [address] [place] [address] Internal Medicine 02/18/17 03/19/21 Cash Heath III, MD [address] [facility] [address] [place] [address] Rheumatology 04/12/17 Alex Mahajan MD [address] [address] Referring Physician Internal Medicine 05/07/19 1 documented as of this encounter
--- OUTSIDE RECORDS SUMMARY | 2024-04-29 19:24 | XMS_ITS | Encounter Summary ---
Author Organization [facility] Address [address] [place] [address] Care Team Providers Care Clinical Trial Manager Name Role Phone Isaiah Quiros MD Unavailable Isaiah Quiros MD Primary Care Provider [phone] Kumar CARRILLO MD, Cash Howard Unavailable [phone] Encounter Details Date Type Department Care Team (Late st Contact Info) Description 12/26/2018 7:25 AM CDT [address] [address] Social History Tobacco Use Types Packs/Day Years Used Date Smoking Tobacco: Never Alcohol Use Standard Drinks/Week Comments No 0 (1 standard drink = 0.6 oz pur e alcohol) Comments No Sex and Gender Information Value Date Recorded Sex Assigned at Not on file Legal Sex Female 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 Gender Identity Female 08/14/2022 11:32 AM CDT Sexual Orientation Straight 02/13/2023 7: 01 AM CDT documented as of this encounter Plan of Treatment Pending Results Name Type Priority Associated Diagnoses Date /Time High risk HPV RNA w pap Pathology and Cytology Routine 12/24/2018 3:41 PM CDT documented as of this encounter Visit Diagnoses Not on filedocumented in this encounter Care Teams Clinical Trial Manager Relationship Specialty Start Date End Date Isaiah Quiros MD [address] [place], [place] [id number] PCP - General Internal Medicine 04/01/17 06/02/20 Isaiah Quiros MD [address] [facility] 1 [place] [address] Internal Medicine 02/18/17 03/19/21 Cash Heath III, MD [address] [facility] [address] [place] [address] Rheumatology 04/12/17 documented as of this encounter
--- OUTSIDE RECORDS SUMMARY | 2024-04-29 19:24 | XMS_ITS | Encounter Summary ---
Author Organization [facility] Address [address] [place] [address] Phone Care Team Providers Care Cooking Chef Name Role Phone Isaiah Quiros MD Unavailable Isaiah Quiros MD Primary Care Provider [phone] Kumar CARRILLO MD, Cash Howard Unavailable Alex Mahajan MD Unavailable [phone] Encounter Details Date Type Department Care Team (Late st Contact Info) Description 02/22/2020 Orders Only [facility] [address] [place] [address] Miriam Frye PA [address] [place] [address] Social History Tobacco Use Types Packs/Day Years Used Date Smoking Tobacco: Never Alcohol Use Standard Drinks/Week Comments No 0 (1 standard drink = 0.6 oz pur e alcohol) Comments No Sex and Gender Information Value Date Recorded Sex Assigned at Not on file Legal 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 Gender Identity Female 08/14/2022 11:32 AM CDT Sexual Orientation Straight 02/13/2023 7: 01 AM CDT documented as of this encounter Ordered Prescriptions Prescription Sig Dispense Quantity Refills Last Filled Start Date End Date amoxicillin (AMOXIL) 500 mg tablet/capsule Take 1 tablet/caps ule (500 mg total) by mouth 3 (three) times a day for 7 days 21 tablet/capsule 02/22/2020 02/29/2020 documented in this encounter Plan of Treatment Not on file documented as of this encounter Visit Diagnoses Not on filedocumented in this encounter Care Teams Cooking Chef Relationship Specialty Start Date End Date Isaiah Quiros MD [address] [place] [address] PCP - General Internal Medicine 04/01/17 06/02/20 Isaiah Quiros MD [address] [place] [address] Internal Medicine 02/18/17 03/19/21 Cash Heath III, MD [address] [facility] [address] [place] [address] Rheumatology 04/12/17 Alex Mahajan MD [address] [facility] [address] [place] [address] Referring Physician Internal Medicine 05/07/19 1 documented as of this encounter
--- OUTSIDE RECORDS SUMMARY | 2024-04-29 19:24 | XMS_ITS | Encounter Summary ---
Author Organization [facility] Address [address] [facility] [address] [place] [address] Care Team Providers Care Driver Utility Worker Name Role Phone Isaiah Quiros MD Unavailable Isaiah Quiros MD Primary Care Provider [phone] Kumar CARRILLO MD, BryonNatan Unavailable [phone] Reason for Visit * Reason Onset Date Comments no script at pharm 09/09/2018 Encounter Details Date Type Department Care Team (Late st Contact Info) Description 09/09/[address] 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. Saturday start * Telephone Encounter - Curtis Oseguera MD - 09/09/2018 3:59 PM CDT Prescription recent to pharmacy, apologize, not sure why the initial prescription did not go through. Blaming it on new computer * Telephone Encounter - Angela Maldonado - 09/09/2018 1:28 PM CDT Pt thought she was getting birthcontrol [facility] documented in this encounter Plan of Treatment Not on file documented as of this encounter Visit Diagnoses Not on filedocumented in this encounter Care Teams Driver Utility Worker Relationship Specialty Start Date End Date Isaiah Quiros MD [address] [place] [address] PCP - General Internal Medicine 04/01/17 06/02/20 Isaiah Quiros MD [address] [place] [address] Internal Medicine 02/18/17 03/19/21 Cash Heath III, MD [address] [facility] [address] [place] [address] Rheumatology 04/12/17 documented as of this encounter
--- OUTSIDE RECORDS SUMMARY | 2024-04-29 19:24 | XMS_ITS | Encounter Summary ---
Author Organization [facility] Address [address] [place] [address] Phone Care Team Providers Care Financial Wellness Coach Name Role Phone Isaiah Quiros MD Unavailable Isaiah Quiros MD Primary Care Provider [phone] Kumar CARRILLO MD, Cash Howard Unavailable [phone] Reason for Visit * Reason Onset Date Comments Quant Gold Order 09/26/2018 Encounter Details Date Type Department Care Team (Late st Contact Info) Description 09/26/2018 Telephone [place] [id number] [address] Nadine Zuniga Gold Order Social History Tobacco Use Types Packs/Day Years Used Date Smoking Tobacco: Never Alcohol Use Standard Drinks/Week Comments No 0 (1 standard drink = 0.6 oz pur e alcohol) Comments No Sex and Gender Information Value Date Recorded Sex Assigned at Not on file 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 * Telephone Encounter - Nadine Zuniga - 09/26/2018 1:55 PM CDT Patient due for Qgold. Please place order documented in this encounter Plan of Treatment Not on file documented as of this encounter Procedures Procedure Name Priority Date/Time Associated Diagnosis Comments TB TEST, QUANTIFERON GOLD Routine 10/27/2018 11:39 AM CDT Screening-pulmonary TB documented in this encounter Results * TB test, quantiferon gold (10/27/2018 11:39 AM CDT) QuantiFERON(R)-T B Gold Plus, 1 Tube NEGATIVE NEGATIVE [facility] Comment: Negative test result. M. tuberculosis complex infection unlikely. NIL 0.01 IU/mL [facility] [place] MITOGEN-NIL >10.00 IU/mL [facility] [place] TB1-NIL 0.00 [...] T-lymphocytes. For additional information, please refer to https://[email or web address]/faq/TTH530 (This link is being provided for informational/ educational purposes only.) Blood specimen (specimen) 10/27/2018 11:39 AM CDT 10/27/2018 11:40 AM CDT Narrative [facility] - 10/29/2018 12:48 PM CDT FASTING:NO FASTING: NO Resulting Agency Comment Performing Organization Information: ?Site ID: [id number] ?Name: [facility] ?Address: [address] [id number] ?Director: Curtis Noe D.O., MPH us Miriam [facility] BLOOD ORDERAB LES Final Result [facility] documented in this encounter Visit Diagnoses Diagnosis Screening-pulmonary TB- Primary Screening examination for pulmonary tuberculosis documented in this encounter Care Teams Financial Wellness Coach Relationship Specialty Start Date End Date Isaiah Quiros MD [address] [place] [address] PCP - General Internal Medicine 04/01/17 06/02/20 Isaiah Qiuros MD [address] [place] [address] Internal Medicine 02/18/17 03/19/21 Cash Heath III, MD [address] [facility] [address] [place] [address] Rheumatology 04/12/17 documented as of this encounter
--- OUTSIDE RECORDS SUMMARY | 2024-04-29 19:24 | XMS_ITS | Encounter Summary ---
Author Organization [facility] Address [address] [place] [address] Phone Care Team Providers Care Sales Account Leader Name Role Phone Isaiah Quiros MD Unavailable Isaiah Quiros MD Primary Care Provider [phone] Kumar CARRILLO MD, Cash Howard Unavailable [phone] Alex Mahajan MD Unavailable [phone] Encounter Details Date Type Department Care Team (Late st Contact Info) Description 01/07/2020 Telephone [facility] [address] [place] [address] Miriam Frye PA [address] [place] [address] Social History Tobacco Use Types Packs/Day Years Used Date Smoking Tobacco: Never Alcohol Use Standard Drinks/Week Comments No 0 (1 standard drink = 0.6 oz pur e alcohol) Comments No Sex and Gender Information Value Date Recorded Sex Assigned at Not on file Legal Sex Female 9:24 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 * Telephone Encounter - Miriam Frye PA - 01/07/2020 4:00 PM CDT Change to IV orencia from sq orencia. Does not need to be loaded, go to monthly from start. documented in this encounter Plan of Treatment Not on file documented as of this encounter Visit Diagnoses Not on filedocumented in this encounter Care Teams Sales Account Leader Relationship Specialty Start Date End Date Isaiah Quiros MD [address] [place] [address] PCP - General Internal Medicine 04/01/17 06/02/20 Isaiah Quiros MD [address] [place] [address] Internal Medicine 02/18/17 03/19/21 Cash Heath III, MD [address] [facility] [address] [place] [address] Rheumatology 04/12/17 Alex Mahajan MD [address] [facility] [address] [place] [address] Referring Physician Internal Medicine 05/07/19 1 documented as of this encounter
--- OUTSIDE RECORDS SUMMARY | 2024-04-29 19:24 | XMS_ITS | Encounter Summary ---
Author Organization [facility] Address [address] [place] [address] Phone Care Team Providers Care Appliance Parts Counter Clerk Name Role Phone Isaiah Quiros MD Unavailable Isaiah Quiros MD Primary Care Provider [phone] Kumar CARRILLO MD, Cash Howard Unavailable [phone] Alex Mahajan MD Unavailable [phone] Reason for Visit * Reason Onset Date Comments González VALLE Started 02/19/2020 Encounter Details Date Type Department Care Team (Late st Contact Info) Description 02/19/[address] [address] Miriam Frye PA [address] [place] [address] González VALLE Started Social History Tobacco Use Types Packs/Day Years Used Date Smoking Tobacco: Never Alcohol Use Standard Drinks/Week Comments No 0 (1 standard drink = 0.6 oz pur e alcohol) Comments No Sex and Gender Information Value Date Recorded Sex Assigned at Not on file 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 Gender Identity Female 08/14/2022 11:32 AM CDT Sexual Orientation Straight 02/13/2023 7: 01 AM CDT documented as of this encounter Miscellaneous Notes * Telephone Encounter - Tiara Rainey - 02/19/2020 12:08 PM CDT PA request submitted to [facility] * Telephone Encounter - Miriam Frye PA - 02/19/2020 11:35 AM CDT Please change back to sq orencia documented in this encounter Plan of Treatment Not on file documented as of this encounter Visit Diagnoses Not on filedocumented in this encounter Care Teams Appliance Parts Counter Clerk Relationship Specialty Start Date End Date Isaiah Quiros MD [address] [place] [address] PCP - General Internal Medicine 04/01/17 06/02/20 Isaiah Quiros MD [address] [place] [address] Internal Medicine 02/18/17 03/19/21 Cash Heath III, MD [address] [facility] [address] [place] [address] Rheumatology 04/12/17 Alex Mahajan MD [address] [facility] [address] [place] [address] Referring Physician Internal Medicine 05/07/19 1 documented as of this encounter
--- OUTSIDE RECORDS SUMMARY | 2024-04-29 19:24 | XMS_ITS | Encounter Summary ---
Author Organization [facility] Address [address] [place] [address] Phone Care Team Providers Care Machine Sweeper Brush Maker Name Role Phone Isaiah Quiros MD Unavailable Isaiah Quiros MD Primary Care Provider Kumar CARRILLO MD, John J. Unavailable [phone] Reason for Visit * Reason Comments Rheumatoid Arthritis Encounter Details Date Type Department Care Team (Late st Contact Info) Description 10/31/2018 1:45 PM CDT Office Visit [facility] [address] [address] Miriam Frye PA [address] [place] [id number] Rheumatoid arthritis of multiple sites without rheumatoid factor (CMS/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 Gender Identity Female 08/14/2022 11:32 AM CDT Sexual Orientation Straight 02/13/2023 7: 01 AM CDT documented as of this encounter Last Filed Vital Signs Vital Sign Reading Time Taken Comments Blood Pressure 126/80 10/31/2018 1:45 PM CDT Pulse - - Temperature - - Respiratory Rate - - Oxygen Saturation - - Inhaled Oxygen Concentration - - Weight 88 kg (194 lb) 10/31/2018 1:45 PM CDT Height 167.6 cm (5' 6 ) 10/31/2018 1:45 PM CDT Body Mass Index 31.31 10/31/2018 1:45 PM CDT documented in this encounter Progress Notes * Miriam Frye PA - 10/31/2018 1:45 PM CDT Images from the original note were not included. Subjective/Objective Patient ID: Madalyn Smith is a 43 y.o. female. Chief Complaint RA HPI Had 3 orencia infusions so far without any side effects. Her hands still hurt but feels that she isdoing slightly better since she started orencia. No infections since last visit. No sob, cp, rashes, oral or nose ulcers. No martines or diarrhea. Review of Systems Constitutional: Negative for fatigue [...] and dry. Psychiatric: Normal mood. Vitals reviewed. Labs Lab Results Component Value Date WBC 5.5 09/29/2018 HGB 12.0 09/29/2018 HCT 38.9 09/29/2018 MCV 79.4 (L) 09/29/2018 Lab Results Component Value Date GLUCOSE 76 09/29/2018 CALCIUM 9.4 09/29/2018 SODIUM 137 09/29/2018 POTASSIUM 4.0 09/29/2018 CO2 25 09/29/2018 CHLORIDE 103 09/29/2018 BUNSER 15 09/29/2018 CREATININE 0.95 09/29/2018 Lab Results Component Value Date ALT 16 09/29/2018 AST 14 09/29/2018 ALKPHOS 78 09/29/2018 BILITOT 0.4 09/29/2018 Lab Results Component Value Date SEDRATE 8 08/01/2018 Lab Results Component Value Date CRP 3.3 08/01/2018 Assessment/Plan Diagnoses and all orders for this visit: Rheumatoid arthritis of multiple sites without rheumatoid factor (CMS/HCC) (Primary) Assessment & Plan: Mod cdai. Orencia IV approved by insurance. [...] pcp. Encounter for long-term (current) use of medications [...] Taking ca + vit d 1200mg qd. Cosigned by Cash Heath III, MD at 10/31/2018 3:47 PM CDT documented in this encounter Miscellaneous Notes * Assessment & Plan Note - Miriam Frye PA - 10/31/2018 7:38 AM CDTAssociated Problem(s): Osteoporosis without current pathological fracture bds checked by pcp in past, is taking ca and vit d and pcp checked vit D and PTH per pt was wnl. Her pcp started her on alendronate 70mg po qweek. Taking ca + vit d 1200mg qd. * Assessment & Plan Note - Miriam Frye PA - 10/31/2018 7:38 AM CDTAssociated Problem(s): Meredith-Danlos disease Advised to get chest CT to r/o aortic aneurysm, to discuss with pcp. * Assessment & Plan Note - Miriam Frye PA - 10/31/2018 7:37 AM CDTAssociated Problem(s): Encounter for long-term (current) [...] Plan Note - Miriam Frye PA - 10/31/2018 7:36 AM CDTAssociated Problem(s): Psoriatic arthritis (HCC) Mod cdai. Orencia IV approved by insurance. Had 3 infusions without any se. Will continue present meds. RF neg but has a possible family hx of psoriatic arthritis (father) so if she develops psoriasis diagnosis will change to psoriatic arthritis. Labs stable 08/01/18.TPMT wnl. ?? documented in this encounter Plan of Treatment Not on file documented as of this encounter Procedures Procedure Name Priority Date/Time Associated Diagnosis Comments CBC WITH AUTO DIFFERENTIAL Routine 11/24/2018 11:34 AM CDT Rheumatoid arthritis of multiple sites without rheumatoid factor (CMS/HCC) Encounter for long-term (current) use of medications ERYTHROCYTE SEDIMENTATION RATE Routine 11/24/2018 11:34 AM CDT Rheumatoid arthritis of multiple sites without rheumatoid factor (CMS/HCC) Encounter for long-term (current) use of medications CRP (ACUTE PHASE) Routine 11/24/2018 11: 34 AM CDT Rheumatoid arthritis of multiple sites without rheumatoid factor (CMS/HCC) Encounter for long-term (current) use of medications COMPREHENSIVE METABOLIC PANEL Routine 11/24/2018 11:34 AM CDT Rheumatoid arthritis of multiple sites without rheumatoid factor (CMS/HCC) Encounter for long-term (current) use of medications documented in this encounter Results * (ABNORMAL) Erythrocyte sedimentation rate (11/24/2018 11:34 AM CDT) Erythrocyte sedimentation rate 29(H) < OR = 20 mm/h [facility] - Blood specimen (specimen) 11/24/2018 11:34 AM CDT 11/24/2018 11:34 AM CDT Narrative Resulting Agency Comment Performing Organization Information: ?Site ID: ?Name: [facility] ?Address: Critical access hospital Administration [place] [address] ?Director: Bobby Mcarthur Miriam VALLE LAB BLOOD ORDERAB LES Final Result [facility] [place], [place] * (ABNORMAL) CRP (acute phase) (11/24/2018 11:34 AM CDT) C-RP 15.8(H) <8.0 mg/L [facility] [place] Blood specimen (specimen) 11/24/2018 11:34 AM CDT 11/24/2018 11:34 AM CDT Narrative Resulting Agency Comment Performing Organization Information: ?Site ID: [place] ?Name: [facility] ?Address: [address] [place] [address] [place] [address] ?Director: Curtis Noe D.O., MPH Miriam VALLE LAB BLOOD ORDERAB LES Final Result Performing Organization Address [facility]/ZIP Co de Phone Number [facility] [place] * (ABNORMAL) Comprehensive metabolic panel (11/24/2018 11:34 AM CDT) Pathologist [facility] Glucose 77 65 - 99 mg/dL [facility] [place] Comment: ? Fasting reference interval BUN 16 7 - 25 mg/dL [facility] [place] Creatinine 0.96 0.50 - 1.10 mg/dL [facility] [place] eGFR NON-AFR. SLOVENIAN 72 > OR = 60 mL/min/1. 73m2 [facility] [place] EGFR 83 > OR = 60 mL/min/1. 73m2 [facility] [place] BUN/creat ratio NOT APPLICABLE 6 - 22 (calc) [facility] [place] Sodium 139 135 - 146 mmol/L [facility] [place] Potassium, pl 4.4 3.5 - 5.3 mmol/L [facility] [place] Chloride 106 98 - 110 mmol/L [facility] [place] CO2 26 20 - 32 mmol/L [facility] [place] Calcium 9.2 8.6 - 10.2 mg/dL [facility] [place] Protein, sr 6.8 6.1 - 8.1 g/dL [facility] [place] Albumin 3.9 3.6 - 5.1 g/dL [facility] [place] GLOBULIN 2.9 1.9 - 3.7 g/dL (calc) [facility] [place] Alb/glob ratio 1.3 1.0 - 2.5 (calc) [facility] [place] Bilirubin, total 0.3 0.2 - 1.2 mg/dL [facility] [place] Alk phos 77 33 - 115 U/L [facility] [place] AST 9(L) 10 - 30 U/L [facility] [place] ALT (SGPT) 10 6 - 29 U/L [facility] [place] Blood specimen (specimen) 11/24/2018 11:34 AM CDT 11/24/2018 11:34 AM CDT Narrative Resulting Agency Comment Performing Organization Information: ?Site ID: [place] ?Name: [facility] ?Address: [address] [place] [address] [place] [address] ?Director: Curtis Noe D.O., MPH us Miriam VALLE [facility] BLOOD ORDERAB LES Final Result [facility] [place] * (ABNORMAL) CBC with auto differential (11/24/2018 11:34 AM CDT) WBC 7.4 3.8 - 10.8 Thousand/u L [facility] [place] RBC, POC 4.46 3.80 - 5.10 Million/uL [facility] [place] Hgb 10.9(L) 11.7 - 15.5 g/dL [facility] [place] Hct 36.0 35.0 - 45.0 % [facility] [place] MCV 80.7 80.0 - 100.0 fL [facility] [place] MCH 24.4(L) 27.0 - 33.0 pg [facility] [place] MCHC 30.3(L) 32.0 - 36.0 g/dL [facility] [place] Rdw 16.2(H) 11.0 - 15.0 % [facility] [place] Platelets 424(H) 140 - 400 Thousand/u L [facility] [place] MPV 9.0 7.5 - 12.5 fL [facility] [place] Neutrophils, abs 5,395 1,500 - 7,800 cells/uL [facility] [place] Lymphocytes, abs 1,384 850 - 3,900 cells/uL [facility] [place] Monocyte abs 503 200 - 950 cells/uL [facility] [place] Eosinophils, abs 37 15 - 500 cells/uL [facility] [place] Basophils, abs 81 0 - 200 cells/uL [facility] [place] Neutrophils 72.9 % [facility] [place] Lymphocyte pct 18.7 % [facility] [place] Monocytes 6.8 % [facility] [place] Eosinophils 0.5 % [facility] [place] Basophils 1.1 % [facility] [place] Blood specimen (specimen) 11/24/2018 11:34 AM CDT 11/24/2018 11:34 AM CDT Narrative Resulting Agency Comment Performing Organization Information: ?Site ID: ?Name: [facility] ?Address: Critical access hospital Administration [place] [address] ?Director: Bobby Mcarthur Miriam VALLE LAB BLOOD ORDERAB LES Final Result [facility] [place] documented in this encounter Visit Diagnoses Diagnosis Rheumatoid arthritis of multiple sites without rheumatoid factor (CMS/HCC) (HCC)- Primary Meredith-Danlos disease Meredith-Danlos syndrome Encounter for long-term (current) use of medications Encounter for long-term (current) use of other medications Osteoporosis without current pathological fracture, unspecified osteoporosis type documented in this encounter Discontinued Medications Medication Sig Discontinue Reason Start Date End Da te guaiFENesin (ROBITUSSIN) syrup 100 mg/5 mL Take 10 mL by mouth every 6 hours Therapy completed 02/02/2017 10/31/2018 documented as of this encounter Care Teams Machine Sweeper Brush Maker Relationship Specialty Start Date End Date Isaiah Quiros MD [address] [place] [address] PCP - General Internal Medicine 04/01/17 06/02/20 sIaiah Quiros MD [address] [place] [address] Internal Medicine 02/18/17 03/19/21 Cash Heath III, MD [address] [facility] [address] [place] [address] Rheumatology 04/12/17 documented as of this encounter
--- OUTSIDE RECORDS SUMMARY | 2024-04-29 19:24 | XMS_ITS | Encounter Summary ---
Author Organization [facility] Address [address] [place] [address] Phone Care Team Providers Care Business Management Professor Name Role Phone Isaiah Quiros MD Unavailable Isaiah Quiros MD Primary Care Provider [phone] Kumar CARRILLO MD, Cash Howard Unavailable Alex Mahajan MD Unavailable [phone] Encounter Details Date Type Department Care Team (Late st Contact Info) Description 02/19/2020 Telephone [facility] [address] [place] [phone] Miriam Frye PA [address] [place] [address] Social History Tobacco Use Types Packs/Day Years Used Date Smoking Tobacco: Never Alcohol Use Standard Drinks/Week Comments No 0 (1 standard drink = 0.6 oz pur e alcohol) Comments No Sex and Gender Information Value Date Recorded Sex Assigned at Not on file 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 Pt informed. * Telephone Encounter - Miriam Frye PA - 02/19/2020 2:38 PM CDT Please renew her tramadol. ty documented in this encounter Plan of Treatment Not on file documented as of this encounter Visit Diagnoses Not on filedocumented in this encounter Discontinued Medications Medication Sig Discontinue Reason Start Date End Da te traMADoL (ULTRAM) 50 mg tablet Take 1 tablet (50 mg total) by mouth every 8 (eight) hours as needed for pain Reorder 01/22/2020 02/19/2020 documented as of this encounter Care Teams Business Management Professor Relationship Specialty Start Date End Date Isaiah Quiros MD [address] [place] [address] PCP - General Internal Medicine 04/01/17 06/02/20 Isaiah Quiros MD [address] [place] [address] Internal Medicine 02/18/17 03/19/21 Cash Heath III, MD [address] [place], [place] [id number] Rheumatology 04/12/17 Alex Mahajan MD [address] [place] [address] Referring Physician Internal Medicine 05/07/19 1 documented as of this encounter
--- OUTSIDE RECORDS SUMMARY | 2024-04-29 19:24 | XMS_ITS | Encounter Summary ---
Author Organization [facility] Address [address] [place] [address] Phone Care Team Providers Care Extractor Operator Name Role Phone Isaiah Quiros MD Unavailable Isaiah Quiros MD Primary Care Provider [phone] Kumar CARRILLO MD, Cash Howard Unavailable [phone] Alex Mahajan MD Unavailable [phone] Reason for Visit * Reason Onset Date Comments UTI 02/22/2020 Encounter Details Date Type Department Care Team (Late st Contact Info) Description 02/22/2020 Telephone [facility] [address] [place] [address] Mick Can UTI Social History Tobacco Use Types Packs/Day Years Used Date Smoking Tobacco: Never Alcohol Use Standard Drinks/Week Comments No 0 (1 standard drink = 0.6 oz pur e alcohol) Comments No Sex and Gender Information Value Date Recorded Sex Assigned at Not on file Legal Sex Female 9:24 PM AUDIT SENIOR ASSOCIATE Gender Identity Female 08/14/2022 11:32 AM CDT Sexual Orientation Straight 02/13/2023 7: 01 AM CDT documented as of this encounter Ordered Prescriptions Prescription Sig Dispense Quantity Refills Last Filled Start Date End Date ciprofloxacin (CIPRO) 250 mg tabletIndications: Urinary Tract/Genitourinar y Infection Take 1 tablet (250 mg total) by mouth 2 (two) times a day for 7 days 14 tablet 02/22/2020 02/22/2020 documented in this encounter Miscellaneous Notes * Addendum Note - Mick Can - 02/22/2020 3:51 PM CSTAddended by: MICK CAN on: 02/22/2020 03:51 PM Modules accepted: Orders T SENIOR ASSOCIATE * Telephone Encounter - Mick Can - 02/22/2020 3:43 PM CST Images from the original note were not included. Miriam Frye PA P [facility] ?? She grew strep. ?? Is she allx to pcn? ??If not tell her to not pickling operator cipro and we need to call in amoxil 500mg tid x 7d. Left vm to inform pt of change in antibiotic. Per chart the only allergy is Ibuprofen. Asked pt to call back if she has a PCN allergy we are unaware of now. Called Sabrina @ [phone] & spoke w/Brandy to cancel the Cipro & change to Amoxil as directed. Script added to med list. Please sign script. T SENIOR ASSOCIATE * Telephone Encounter - Mick Can - 02/22/2020 12:17 PM CST Spoke w/pt & she denies any uti symptoms at this point. Pt also denies Cipro allergy. Lab ordergenerated & mailed to pt. Results sent to pcp. Script ready to sign. T SENIOR ASSOCIATE * Telephone Encounter - Mick Can - 02/22/2020 12:17 PM CST ----- Message from LEONARD Melendrez sent at 02/22/2020 9:47 AM AUDIT SENIOR ASSOCIATE ----- Had wbc and blood in urine. Culture is pending. If not allx to cipro call in 250mg bid x 7d. Recheck UA in 10d. Lots of water. If symptoms worsen (fever, chills, nausea, abd pain, hematuria, worsening dysuria) to ER. T SENIOR ASSOCIATE documented in this encounter Plan of Treatment Scheduled Orders Name Type Priority Associated Diagnoses Orde r Schedule Urinalysis reflex to microscopic and culture Urine, clean voided Microbiology Routine Urinary tract infection with hematuria, site unspecified Expected: 03/03/2020, Expires: 02/21/2021 documented as of this encounter Visit Diagnoses Diagnosis Urinary tract infection with hematuria, site unspecified- Primary documented in this encounter Discontinued Medications Medication Sig Discontinue Reason Start Date End Da te ciprofloxacin (CIPRO) 250 mg tabletIndications:Urinar y Tract/Genitourinary Infection Take 1 tablet (250 mg total) by mouth 2 (two) times a day for 7 days Alternate therapy 02/22/2020 02/22/2020 documented as of this encounter Care Teams Extractor Operator Relationship Specialty Start Date End Date Isaiah Quiros MD [address] [place] [address] PCP - General Internal Medicine 04/01/17 06/02/20 Isaiah Quiros MD [address] [place] [address] Internal Medicine 02/18/17 03/19/21 Cash Heath III, MD [address] [place] [address] Rheumatology 04/12/17 Alex Mahajan MD [address] [place] [address] Referring Physician Internal Medicine 05/07/19 1 documented as of this encounter
--- OUTSIDE RECORDS SUMMARY | 2024-04-29 19:24 | XMS_ITS | Encounter Summary ---
Author Organization [facility] Address [address] [place] [address] Phone Care Team Providers Care Landman Name Role Phone Isaiah Quiros MD Unavailable Isaiah Quiros MD Primary Care Provider [phone] Kumar CARRILLO MD, Cash Hoawrd Unavailable [phone] Encounter Details Date Type Department Care Team (Late st Contact Info) Description 04/27/2019 Orders Only [facility] [address] [place] [phone] Tiara Rainey Anemia, unspecified type (Primary Dx) Social History Tobacco Use Types Packs/Day Years Used Date Smoking Tobacco: Never Alcohol Use Standard Drinks/Week Comments No 0 (1 standard drink = 0.6 oz pur e alcohol) Comments No Sex and Gender Information Value Date Recorded Sex Assigned at Not on file Legal Sex Female 9:24 PM CUSTOMER SUPPORT ANALYST Gender Identity Female 08/14/2022 11:32 AM CDT Sexual Orientation Straight 02/13/2023 7: 01 AM CDT documented as of this encounter Progress Notes * Miriam Frye PA - 04/27/2019 9:29 AM CST Needs to see heme and gi. Needs egd/colo. Pt appears to have an iron deficiency anemia. OMER SUPPORT ANALYST documented in this encounter Plan of Treatment Not on file documented as of this encounter Procedures Procedure Name Priority Date/Time Associated Diagnosis Comments SOLUBLE TRANSFERRIN Routine 04/30/2019 4 :42 PM CUSTOMER SUPPORT ANALYST Anemia, unspecified type IRON PROFILE W/ IBC Routine 04/30/2019 4 :42 PM CUSTOMER SUPPORT ANALYST Anemia, unspecified type RETICULOCYTES Routine 04/30/2019 4:42 PM CUSTOMER SUPPORT ANALYST Anemia, unspecified type FOLATE Routine 04/30/2019 4:42 PM CUSTOMER SUPPORT ANALYST Anemia, unspecified type FERRITIN Routine 04/30/2019 4:42 PM CUSTOMER SUPPORT ANALYST Anemia, unspecified type VITAMIN B12 Routine 04/30/2019 4:42 PM CUSTOMER SUPPORT ANALYST Anemia, unspecified type documented in this encounter Results * (ABNORMAL) Soluble TRANSFERRIN (04/30/2019 4:42 PM CUSTOMER SUPPORT ANALYST) Solubuls Transferrin Receptor 2.35(H) 0.76 - 1.76 mg/L [facility] Blood specimen (specimen) 04/30/2019 4:42 PM CUSTOMER SUPPORT ANALYST 04/30/2019 4:43 PM CUSTOMER SUPPORT ANALYST Narrative Resulting Agency Comment Performing Organization Information: ?Site ID: [facility] ?Name: [facility] [place] ?Address: [address] [place] [address] ?Director: Apolinar Simms M.D., Ph.D us Miriam VALLE LAB BLOOD ORDERAB LES Final Result [facility] - [place], [place] * (ABNORMAL) Ferritin (04/30/2019 4:42 PM CUSTOMER SUPPORT ANALYST) Ferritin 5(L) 16 - 232 ng/mL [facility] [place] Blood specimen (specimen) 04/30/2019 4:42 PM CUSTOMER SUPPORT ANALYST 04/30/2019 4:43 PM CUSTOMER SUPPORT ANALYST Narrative Resulting Agency Comment Performing Organization Information: ?Site ID: [place] ?Name: [facility] ?Address: [facility] [place] [address] ?Director: Curtis Noe D.O., MPH Miriamgui Frye [place] LAB BLOOD ORDERAB LES Final Result Performing Organization Address [facility] de Phone Number [facility] [place] * (ABNORMAL) Iron profile w/ IBC (04/30/2019 4:42 PM CUSTOMER SUPPORT ANALYST) Iron 15(L) 40 - 190 mcg/dL [facility] [place] TIBC 385 250 - 450 mcg/dL (calc) [facility] [place] Iron saturation 4(L) 16 - 45 % (calc) [facility] [place] Blood specimen (specimen) 04/30/2019 4:42 PM CUSTOMER SUPPORT ANALYST 04/30/2019 4:43 PM CUSTOMER SUPPORT ANALYST Narrative Resulting Agency Comment Performing Organization Information: ?Site ID: [place] ?Name: [facility] ?Address: [facility] [place] [address] ?Director: Curtis Noe D.O., MPH Miriam VALLE LAB BLOOD ORDERAB LES Final Result Performing Organization Address [facility] de Phone Number [place] * Vitamin B12 (04/30/2019 4:42 PM CUSTOMER SUPPORT ANALYST) Vitamin B12 405 200 - 1,100 pg/mL [facility] Blood specimen (specimen) 04/30/2019 4:42 PM CUSTOMER SUPPORT ANALYST 04/30/2019 4:43 PM CUSTOMER SUPPORT ANALYST Narrative Resulting Agency Comment Performing Organization Information: ?Site ID: [place] ?Name: [facility] ?Address: [facility] [place] [address] ?Director: Curtis Noe D.O., MPH Miriam VALLE LAB BLOOD ORDERAB LES Final Result Performing Organization Address [facility] de Phone Number [facility] [place] * (ABNORMAL) Reticulocyte Count (04/30/2019 4:42 PM CUSTOMER SUPPORT ANALYST) Pathologist [facility] [place] Reticulocyte count, automated 1.8 % [facility] [place] Reticulocyte, absolute 82,080(H) 20,000 - 80,000 cells/uL [facility] [place] Blood specimen (specimen) 04/30/2019 4:42 PM CUSTOMER SUPPORT ANALYST 04/30/2019 4:43 PM CUSTOMER SUPPORT ANALYST Narrative Resulting Agency Comment Performing Organization Information: ?Site ID: [place] ?Name: [facility] ?Address: [address] [place], [place] [address] [address] ?Director: Curtis Noe D.O., MPH Miriam VALLE LAB BLOOD ORDERAB LES Final Result Performing Organization Address [facility] de Phone Number [facility] [place] * Folate (04/30/2019 4:42 PM CUSTOMER SUPPORT ANALYST) Pathologist [facility] [place] Folate, Serum 10.1 ng/mL [facility] [place] Comment: ? Reference Range ? Low: ? <3.4 ? Borderline: ?3.4-5.4 ? Normal: ?>5.4 Blood specimen (specimen) 04/30/2019 4:42 PM CUSTOMER SUPPORT ANALYST 04/30/2019 4:43 PM CUSTOMER SUPPORT ANALYST Narrative Resulting Agency Comment Performing Organization Information: ?Site ID: [place] ?Name: [facility] ?Address: [address] [place] [address] ?Director: Curtis Noe D.O., MPH us Miriam VALLE LAB BLOOD ORDERAB LES Final Result [facility] [place] documented in this encounter Visit Diagnoses Diagnosis Anemia, unspecified type- Primary documented in this encounter Care Teams Landman Relationship Specialty Start Date End Date Isaiah Quiros MD [address] [place] [address] PCP - General Internal Medicine 04/01/17 06/02/20 Isaiah Quiros MD [address] [place] [address] Internal Medicine 02/18/17 03/19/21 Cash Heath III, MD [address] [facility] [address] [place] [address] Rheumatology 04/12/17 documented as of this encounter
--- OUTSIDE RECORDS SUMMARY | 2024-04-29 19:24 | XMS_ITS | Encounter Summary ---
Author Organization [facility] Address [address] [place] [address] Phone Care Team Providers Care Skin Pass Operator Name Role Phone Isaiah Quiros MD Unavailable Isaiah Quiros MD Primary Care Provider [phone] Kumar CARRILLO MD, Cash Howard Unavailable [phone] Alex Mahajan MD Unavailable [phone] Reason for Visit * Reason Comments Rheumatoid Arthritis Encounter Details Date Type Department Care Team (Late st Contact Info) Description 12/23/2019 2:00 PM CDT Office Visit [facility] [address] [place] [address] Elena Kumari PA [address] [place] [address] Rheumatoid arthritis of multiple sites without rheumatoid factor (CMS/HCC) (Primary Dx); Osteoporosis without current pathological fracture; Frequent infections; Encounter for long-term (current) use of medications; Meredith-Danlos disease Social History Tobacco Use Types Packs/Day Years Used Date Smoking Tobacco: Never Alcohol Use Standard Drinks/Week Comments No 0 (1 standard drink = 0.6 oz pur e alcohol) Comments No Sex and Gender Information Value Date Recorded Sex Assigned at Not on file 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 Identity Female 08/14/2022 11:32 AM CDT Sexual Orientation Straight 02/13/2023 7: 01 AM CDT documented as of this encounter Last Filed Vital Signs Vital Sign Reading Time Taken Comments Blood Pressure 123/88 12/23/2019 2:51 PM CDT Pulse - - Temperature 36.6 ??C (97.8 ??F) 12/23/2019 2:51 PM CD T Respiratory Rate - - Oxygen Saturation - - Inhaled Oxygen Concentration - - Weight 97.5 kg (215 lb) 12/23/2019 2:51 PM CDT Height 167.6 cm (5' 6 ) 12/23/2019 2:51 PM CDT Body Mass Index 34.7 12/23/2019 2:51 PM CDT documented in this encounter Ordered Prescriptions Prescription Sig Dispense Quantity Refills Last Filled Start Date End Date azaTHIOprine (IMURAN) 50 mg tablet Take 2 tablets by mouth in the morning and 1 tablet by mouth in the evening 270 tablet 12/23/2019 0 documented in this encounter Progress Notes * Elena Villegas PA - 12/23/2019 2:00 PM CDT Images from the original note were not included. Subjective/Objective Patient ID: Madalyn Smith is a 44 y.o. female. Chief Complaint Rheumatoid Arthritis HPI Returns for routine follow up. Notes benefit with Orencia SQ but had to hold it last week due to URI. came into contact with someone who tested positive for COVID and patient developed fevers so was tested. COVID-19 test was negative. Fevers have resolved. Feels her joints are awful today since holding Orencia. Has been out of tramadol for about a week. Wants to avoid steroids if possible due to osteoporosis. Denies fevers, infections, rashes, mouth sores, cough, dyspnea, n/v. Joint pain today is 10 /10. AM stiffness = few hours Review of Systems Constitutional: Positive for fatigue. Negative for chills and fever. HENT: Negative for congestion and mouth sores. Respiratory: Negative for cough and shortness of breath. Cardiovascular: Negative for chest pain. Gastrointestinal: Negative for abdominal pain, diarrhea, nausea and vomiting. Musculoskeletal: Positive for arthralgias and myalgias. Skin: Negative for rash. Vitals: Vitals BP 123/88 Temp 36.6 ??C (97.8 ??F) Ht 167.6 cm (5' 6 ) Wt 97.5 kg (215 lb) BMI 34.70 kg/m?? Body mass index is 34.7 kg/m??. Bold X is a current medication. Medication Taking/taken D/C or avoidance reason Hydroxychloroquine X No benefit Methotrexate -stopped in 2016 X Side effects Leflunomide Azathioprine X Sulfasalazine CellCept Humira X No benefit Enbrel X No benefit Simponi Cimzia Simponi aria Remicade Cosentyx Taltz Orencia IV - started 09/29/2018 SQ - started 06/2019 due to COVID-19 X Stelara Tremfya Xeljanz Rinvoq Actemra Kevzara Olumiant Kineret Benlysta Rituxan Otezla NSAIDs Prednisone Physical Exam Constitutional: oriented to person, place, and time. appears well-developed and well-nourished. HENT: Head: Normocephalic. Eyes: Conjunctivae are normal. Pupils are equal, round, and reactive to light. Cardiovascular: Normal rate, regular rhythm and normal heart sounds. No murmur heard. Pulmonary/Chest: Effort normal and breath sounds normal. no wheezes. no rales. Musculoskeletal: See cdai Neurological: alert and oriented to person, place, and time. Skin: Skin is warm and dry. No rash noted. Psychiatric: normal mood and affect. speech is normal and behavior is normal. Cognition and memory are normal. Labs Lab Results Component Value Date WBC 5.7 10/19/2019 HGB 12.7 10/19/2019 HCT 39.9 10/19/2019 MCV 84.9 10/19/2019 Lab Results Component Value Date GLUCOSE 92 10/19/2019 CALCIUM 9.1 10/19/2019 SODIUM 139 10/19/2019 POTASSIUM 4.0 10/19/2019 CO2 25 10/19/2019 CHLORIDE 105 10/19/2019 BUNSER 10 10/19/2019 CREATININE 0.94 10/19/2019 Lab Results Component Value Date ALT 19 10/19/2019 AST 13 10/19/2019 ALKPHOS 101 10/19/2019 BILITOT 0.2 10/19/2019 Lab Results Component Value Date SEDRATE 8 10/19/2019 Lab Results Component Value Date CRP 11.3 (H) 10/19/2019 Rt hand US 09/2019: Patient Global: 10 mm Provider Global: 70 mm CDAI: 30 In remission: 0-3 Low: 4-10 Moderate: 11-22 High: 23 or > Assessment/Plan Diagnoses and all orders for this visit: Rheumatoid arthritis of multiple sites without rheumatoid factor (CMS/HCC) (Primary) Assessment & Plan: High cdai. Several swollen and tender joints noted on peripheral exam today. Notes benefit with Orencia but held last week due to fevers and possible COVID- 19 exposure. Patient tested negative for COVID-19. Fevers have since resolved. [facility] panel 08/2019---labs reveal positive anti-ROVING CARRIER antibody which is likely a false positive due tonegative ASHLEY. ??Otherwise labs look good. ??No evidence of a new autoimmune connective tissue disease. RF neg but has a possible family hx of psoriatic arthritis (father) so if she develops psoriasis diagnosis will change to psoriatic arthritis. Continue Orencia SQ weekly and azathioprine 100mg AM and 50mg PM. Routine labs today. Check CBC/CMPevery 6 weeks. Recommend Voltaren gel otc for hand and knee pain. Offered kenalog IM due to flare however patient defers due to hx of osteoporosis. Will refill tramadol today. If she continues to flare after restarting Orencia SQ and with tramadol she will call the office for kenalog IM. Follow up in 1 month. Sooner if needed. Osteoporosis without current pathological fracture Assessment & Plan: BDS checked by pcp in past. PCP checked vit D and PTH per pt was wnl. Her pcp started her on alendronate 70mg po qweek. Taking ca + vit d 1200mg qd. Frequent infections Assessment & Plan: Normal serum immunoglobulins. Encounter for long-term (current) use of medications [...] showed osteoporosis [facility] 08/2019---[facility] labs reveal positive anti-ROVING CARRIER antibody which is likely a false positive due tonegative ASHLEY. Meredith-Danlos disease Elena Villegas PA-C Cosigned by Cash Heath III, MD at 12/23/2019 4:16 PM CDT documented in this encounter Miscellaneous Notes * Assessment & Plan Note - Elena Villegas PA - 12/23/2019 3:41 PM CDTAssociated Problem(s): Osteoporosis without current pathological fracture BDS checked by pcp in past. PCP checked vit D and PTH per pt was wnl. Her pcp started her on alendronate 70mg po qweek. Taking ca + vit d 1200mg qd. * Assessment & Plan Note - Elena Villegas PA - 12/23/2019 3:41 PM CDTAssociated Problem(s): Frequent infections Normal serum immunoglobulins. * Assessment & Plan Note - Elena Villegas PA - 12/23/2019 3:39 PM CDTAssociated Problem(s): Encounter for long-term (current) [...] showed osteoporosis [facility] 08/2019---[facility] labs reveal positive anti-ROVING CARRIER antibody which is likely a false positive due tonegative ASHLEY. * Assessment & Plan Note - Elena Villegas PA - 12/23/2019 2:55 PM CDTAssociated Problem(s): Psoriatic arthritis (HCC) High cdai. Several swollen and tender joints noted on peripheral exam today. Notes benefit with Orencia but held last week due to fevers and possible COVID- 19 exposure. Patient tested negative for COVID-19. Fevers have since resolved. [facility] panel 08/2019---labs reveal positive anti-ROVING CARRIER antibody which is likely a false positive due tonegative ASHLEY. ??Otherwise labs look good. ??No evidence of a new autoimmune connective tissue disease. RF neg but has a possible family hx of psoriatic arthritis (father) so if she develops psoriasis diagnosis will change to psoriatic arthritis. Continue Orencia SQ weekly and azathioprine 100mg AM and 50mg PM. Routine labs today. Check CBC/CMPevery 6 weeks. Recommend Voltaren gel otc for hand and knee pain. Offered kenalog IM due to flare however patient defers due to hx of osteoporosis. Will refill tramadol today. If she continues to flare after restarting Orencia SQ and with tramadol she will call the office for kenalog IM. Follow up in 1 month. Sooner if needed. documented in this encounter Plan of Treatment Not on file documented as of this encounter Visit Diagnoses Diagnosis Rheumatoid arthritis of multiple sites without rheumatoid factor ([facility]) (HCC)- Primary Osteoporosis without current pathological fracture Frequent infections Encounter for long-term (current) use of medications Encounter for long-term (current) use of other medications Meredith-Danlos disease Meredith-Danlos syndrome documented in this encounter Discontinued Medications Medication Sig Discontinue Reason Start Date End Da te azaTHIOprine (IMURAN) 50 mg tablet TAKE 2 TABLETS BY MOUTH EVERY MORNING AND 1 TABLET EVERY EVENING Reorder 11/11/2019 12/23/2019 predniSONE (DELTASONE) 5 mg tablet 2 tabs po every day x 5d, 1 tab po every day x 5d ,1/2 tab po every day x 5 d. 04/23/2019 12/23/2019 documented as of this encounter Care Teams Skin Pass Operator Relationship Specialty Start Date End Date Isaiah Quiros MD [address] [place] [address] PCP - General Internal Medicine 04/01/17 06/02/20 Isaiah Quiros MD [address] [place] [address] Internal Medicine 02/18/17 03/19/21 Cash Heath III, MD [address] [place] [address] Rheumatology 04/12/17 Alex Mahajan MD [address] [place] [address] Referring Physician Internal Medicine 05/07/19 1 documented as of this encounter
--- OUTSIDE RECORDS SUMMARY | 2024-04-29 19:24 | XMS_ITS | Encounter Summary ---
Author Organization [facility] Healthcare Address [address] [place] [address] Care Team Providers Care Software Development Advisor Name Role Phone Isaiah Quiros MD Unavailable Isaiah Quiros MD Primary Care Provider [phone] Kumar CARRILLO MD, Cash Howard Unavailable [phone] Encounter Details Date Type Department Care Team (Late st Contact Info) Description 12/24/2018 12:01 AM CDT Hospital Encounter [facility] Curtis Oseguera MD [address] [facility] [address] [address] Social History Tobacco Use Types Packs/Day Years Used Date Smoking Tobacco: Never Alcohol Use Standard Drinks/Week Comments No 0 (1 standard drink = 0.6 oz pur e alcohol) Comments No Sex and Gender Information Value Date Recorded Sex Assigned at Not on file 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 Gender Identity Female 08/14/2022 11:32 AM CDT [...] 23 azaTHIOprine (IMURAN) 50 mg tablet TAKE 1 TABLET BY MOUTH TWICE DAILY 60 tablet 11/28/2018 01/01/20 19 clonazePAM (KlonoPIN) 0.5 mg tablet 3 07/30/2018 08/31/19 22 cyclobenzaprine (FLEXERIL) 5 mg tablet TAKE 1 TABLET BY ORAL ROUTE EVERY BEDTIME 30 0 11/03/2015 08/31/19 22 doxycycline (DORYX) 100 mg EC tablet 100 mg every 12 (twelve) hours 12/19/2016 08/31/[address] (CYMBALTA) 60 mg capsule take 1 capsule by oral route every day 0 0 06/29/2015 02/07/20 21 etanercept (ENBREL) 25 mg (1 mL) injection Inject 25 mg under the skin once 07/28/19 20 guaiFENesin-dextrom ethorphan ER (MUCINEX DM) 600-30 mg tablet extended release 12 hr Take 1 tablet by mouth 02/02/2017 08/31/19 22 HYDROcodone-acetami nophen (NORCO) 5-325 mg per tablet TK 1 T PO Q 4-6 H PRN 0 08/20/2018 07/09/19 20 hydroxychloroquine (PLAQUENIL) 200 mg tablet 200 mg 10/19/19 20 hyoscyamine (OSCIMIN) 0.125 mg Take 0.125 mg by mouth every 3 hours 08/05/2015 08/31/19 22 linaclotide (LINZESS) 145 mcg capsule Take 145 mcg by mouth 09/15/2015 09/01/19 22 LYRICA 75 mg capsule TK ONE C PO BID 2 08/17/2018 09/01/19 22 omeprazole (PriLOSEC) 10 mg capsule take 2 capsule by oral route every day before a meal 0 0 05/17/2016 08/31/19 22 ondansetron ODT (ZOFRAN-ODT) 8 mg disintegrating tablet Take 1 tablet (8 mg total) by mouth every 8 (eight) hours as needed for nausea or vomiting X 2 days as directed 60 tablet 10/27/2018 01/01/20 19 oxyCODONE-acetamino phen (PERCOCET) 5-325 mg per tablet TK 1 T PO PRN Q 6 H 0 09/03/2018 08/31/19 22 pregabalin (LYRICA) 100 mg capsule Take 100 [...] Take 200 mg by mouth 08/31/19 22 VENTOLIN HFA 90 mcg/actuation inhaler INL 1 TO 2 PFS PO Q 4 TO 6 H PRF COUGH 0 11/08/2018 08/31/19 22 documented as of this encounter Plan of Treatment Not on file documented as of this encounter Visit Diagnoses Not on filedocumented in this encounter Care Teams Software Development Advisor Relationship Specialty Start Date End Date Isaiah Quiros MD [address] [place] [address] PCP - General Internal Medicine 04/01/17 06/02/20 Isaiah Quiros MD [address] [place] [address] Internal Medicine 02/18/17 03/19/21 Cash Heath III, MD [address] [address] Rheumatology 04/12/17 documented as of this encounter
--- OUTSIDE RECORDS SUMMARY | 2024-04-29 19:24 | XMS_ITS | Encounter Summary ---
Author Organization [facility] Facility Care Team Providers Care Construction Tech Name Role Phone Isaiah Quiros MD Unavailable Isaiah Quiros MD Primary Care Provider [phone] Kumar CARRILLO MD, Cash Howard Unavailable [phone] Encounter Details Date Type Department Care Team (Latest Contact Info) Description 10/31/2018 Travel Social History Tobacco Use Types Packs/Day Years Used Date Smoking Tobacco: Never Alcohol Use Standard Drinks/Week Comments No 0 (1 standard drink = 0.6 oz pur e alcohol) Comments No Sex and Gender Information Value Date Recorded Sex Assigned at Not on file 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 Gender Identity Female 08/14/2022 11:32 AM CDT Sexual Orientation Straight 02/13/2023 7: 01 AM CDT documented as of this encounter Plan of Treatment Not on file documented as of this encounter Visit Diagnoses Not on filedocumented in this encounter Care Teams Construction Tech Relationship Specialty Start Date End Date Isaiah Quiros MD [address] [place] [address] PCP - General Internal Medicine 04/01/17 06/02/20 Isaiah Quiros MD [address] [place] [address] Internal Medicine 02/18/17 03/19/21 Cash Heath III, MD [address] [address] Rheumatology 04/12/17 documented as of this encounter
--- OUTSIDE RECORDS SUMMARY | 2024-04-29 19:24 | XMS_ITS | Encounter Summary ---
Author Organization [facility] Address [address] [place] [address] Phone Care Team Providers Care Nanny Babysitter Name Role Phone Isaiah Quiros MD Unavailable Isaiah Quiros MD Primary Care Provider [phone] Kumar CARRILLO MD, Cash Howard Unavailable [phone] Alex Mahajan MD Unavailable [phone] Reason for Visit * Reason Comments Rheumatoid Arthritis Encounter Details Date Type Department Care Team (Late st Contact Info) Description 10/19/2019 9:15 AM CDT Office Visit [facility] [address] [place] [address] Miriam García PA [address] [place] [address] Rheumatoid arthritis of multiple sites without rheumatoid factor (CMS/HCC) (Primary Dx); Encounter for long-term (current) use of medications; Osteoporosis without current pathological fracture; Primary osteoarthritis of both knees Social History Tobacco Use Types Packs/Day Years Used Date Smoking Tobacco: Never Alcohol Use Standard Drinks/Week Comments No 0 (1 standard drink = 0.6 oz pur e alcohol) Comments No Sex and Gender Information Value Date Recorded Sex Assigned at Not on file 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 Gender Identity Female 08/14/2022 11:32 AM CDT Sexual Orientation Straight 02/13/2023 7: 01 AM CDT documented as of this encounter Last Filed Vital Signs Vital Sign Reading Time Taken Comments Blood Pressure 130/80 10/19/2019 9:29 AM CDT Pulse - - Temperature 36.9 ??C (98.4 ??F) 10/19/2019 9:29 AM CD T Respiratory Rate - - Oxygen Saturation - - Inhaled Oxygen Concentration - - Weight 97.1 kg (214 lb) 10/19/2019 9:29 AM CDT Height 167.6 cm (5' 6 ) 10/19/2019 9:29 AM CDT Body Mass Index 34.54 10/19/2019 9:29 AM CDT documented in this encounter Ordered Prescriptions Prescription Sig Dispense Quantity Refills Last Filled Start Date End Date diclofenac sodium 20 mg/gram /actuation(2 %) solution in metered-dose pump Apply 40 mg topically 2 (two) times a day 112 g 1 10/19/2019 3 ondansetron ODT (ZOFRAN-ODT) 8 mg disintegrating tablet Take 1 tablet (8 mg total) by mouth every 8 (eight) hours as needed for nausea or vomiting 60 tablet 1 10/19/2019 1 documented in this encounter Progress Notes * Miriam García PA - 10/19/2019 9:15 AM CDT Images from the original note were not included. Subjective/Objective Patient ID: Madalyn Smith is a 44 y.o. female. Chief Complaint Joint pain HPI Feels better since lat visit. Thinks she has had a total of 7 orencia injections so far. No se fromthis. Slight occ nausea with imuran but no vomiting. occ takes zofran. Knees and hands still hurt occ. Has hx of knee oa, has seen ortho. 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 No infections. No sob, cp, rashes, oral or nose ulcers. No cough or abd pain. Review of Systems Constitutional: Negative for fatigue [...] dry. Psychiatric: Normal mood. Vitals reviewed. CDAI: 14 Labs Lab Results Component Value Date WBC 7.3 09/10/2019 HGB 12.9 09/10/2019 HCT 40.6 09/10/2019 MCV 82.7 09/10/2019 Lab Results Component Value Date GLUCOSE 105 (H) 09/10/2019 CALCIUM 9.1 09/10/2019 SODIUM 137 09/10/2019 POTASSIUM 3.5 09/10/2019 CO2 24 09/10/2019 CHLORIDE 101 09/10/2019 BUNSER 12 09/10/2019 CREATININE 0.97 09/10/2019 Lab Results Component Value Date ALT 81 (H) 09/10/2019 AST 25 09/10/2019 ALKPHOS 104 09/10/2019 BILITOT 0.2 09/10/2019 Lab Results Component Value Date SEDRATE 11 09/10/2019 Lab Results Component Value Date CRP 23.5 (H) 09/10/2019 Assessment/Plan Diagnoses and all orders for this visit: Rheumatoid arthritis of multiple sites without rheumatoid factor (CMS/HCC) (Primary) Assessment & Plan: Mod cdai, has improved. On orencia sq [...] of orencia. Avise panel 08/2019---labs reveal positive anti-END TRIMMER antibody which is likely a false positive [...] and it showed osteoporosis ?? Orders: - Urinalysis reflex to microscopic and culture Urine, bladder; Future - Protein / creatinine ratio, urine, random; Future - Comprehensive metabolic panel; Future - CRP (acute phase); Future - CBC with auto differential; Future - Anti-double stranded DNA antibodies; Future - C4 complement; Future - C3 complement; Future - Erythrocyte sedimentation rate; Future Osteoporosis without current pathological fracture Assessment & Plan: bds checked by pcp [...] complement; Future - Erythrocyte sedimentation rate; Future Primary osteoarthritis of both knees Assessment & Plan: Has hx of knee OA. Has seen ortho for this in past. Will try to get her pennsaid gel and if not approved, then voltaren gel. Other orders - ondansetron ODT (ZOFRAN-ODT) 8 mg disintegrating tablet; Take 1 tablet (8 mg total) by mouth every 8 (eight) hours as needed for nausea or vomiting Cosigned by Cash Heath III, MD at 10/20/2019 9:46 AM CDT documented in this encounter Miscellaneous Notes * Assessment & Plan Note - Miriam García PA - 10/19/2019 9:40 AM CDTAssociated Problem(s): Primary osteoarthritis of both knees Has hx of knee OA. Has seen ortho for this in past. Will try to get her pennsaid gel and if not approved, then voltaren gel. * Addendum Note - Miriam García PA - 10/19/2019 9:15 AM CDT Addended by: MIRIAM GARCÍA on: 10/19/2019 03:13 PM Modules accepted: Orders * Assessment & Plan Note - Miriam García PA - 10/19/2019 8:06 AM CDTAssociated Problem(s): Encounter for long-term (current) [...] * Assessment & Plan Note - Miriam García PA - 10/19/2019 8:06 AM CDTAssociated Problem(s): Osteoporosis without current pathological fracture bds checked by pcp in past, is taking ca and vit d and pcp checked vit D and PTH per pt was wnl. Her pcp started her on alendronate 70mg po qweek. Taking ca + vit d 1200mg qd. * Assessment & Plan Note - Miriam García PA - 10/19/2019 7:53 AM CDTAssociated Problem(s): Psoriatic arthritis (HCC) Images [...] of orencia. Avise panel 08/2019---labs reveal positive anti-END TRIMMER antibody which is likely a false positive [...] Orde r Schedule C4 complement Lab Routine Rheumatoid arthritis of multiple sites without rheumatoid factor (CMS/HCC) Encounter for long-term (current) use of medications Osteoporosis without current pathological fracture Expected: 10/19/2019, Expires: 10/18/2020 C3 complement Lab Routine Rheumatoid arthritis of multiple sites without rheumatoid factor (CMS/HCC) Encounter for long-term (current) use of medications Osteoporosis without current pathological fracture Expected: 10/19/2019, Expires: 10/18/2020 documented as of this encounter Procedures Procedure Name Priority Date/Time Associated Diagnosis Comments C4 COMPLEMENT Routine 10/19/2019 9:55 AM CDT ANTI-DOUBLE STRANDED DNA ANTIBODIES Routine 10/19/2019 9:55 AM CDT Rheumatoid arthritis of multiple sites without rheumatoid factor ([facility]) Encounter for long-term (current) use of medications Osteoporosis without current pathological fracture URINALYSIS AND REFLEX TO MICROSCOPIC AND CULTURE Routine 10/19/2019 9:55 AM CDT Rheumatoid arthritis of multiple sites without rheumatoid factor ([facility]) Encounter for long-term (current) use of medications Osteoporosis without current pathological fracture CBC WITH AUTO DIFFERENTIAL Routine 10/19/2019 9:55 AM CDT Rheumatoid arthritis of multiple sites without rheumatoid factor ([facility]) Encounter for long-term (current) use of medications Osteoporosis without current pathological fracture PROTEIN / CREATININE RATIO, URINE, RANDOM Routine 10/19/2019 9:55 AM CDT Rheumatoid arthritis of multiple sites without rheumatoid factor ([facility]) Encounter for long-term (current) use of medications Osteoporosis without current pathological fracture ERYTHROCYTE SEDIMENTATION RATE Routine 10/19/2019 9:55 AM CDT Rheumatoid arthritis of multiple sites without rheumatoid factor ([facility]) Encounter for long-term (current) use of medications Osteoporosis without current pathological fracture C3 COMPLEMENT Routine 10/19/2019 9:55 AM CDT CRP (ACUTE PHASE) Routine 10/19/2019 9:5 5 AM CDT Rheumatoid arthritis of multiple sites without rheumatoid factor ([facility]) Encounter for long-term (current) use of medications Osteoporosis without current pathological fracture COMPREHENSIVE METABOLIC PANEL Routine 10/19/2019 9:55 AM CDT Rheumatoid arthritis of multiple sites without rheumatoid factor ([facility]) Encounter for long-term (current) use of medications Osteoporosis without current pathological fracture documented in this encounter Results * C4 complement (10/19/2019 9:55 AM CDT) Complement component C4C 33 15 - 57 mg/dL [facility] 10/19/2019 9:55 AM CDT 10/19/2019 9:56 AM CDT us Miriam VALLE LAB BLOOD ORDERAB LES Final Result Performing Organization Address [facility]/ZIP Co de Phone Number QUEST [facility] [address] [place] [address] * C3 complement (10/19/2019 9:55 AM CDT) Complement component C3C 153 83 - 193 mg/dL [facility] 10/19/2019 9:55 AM CDT 10/19/2019 9:56 AM CDT us Miriam VALLE LAB BLOOD ORDERAB LES Final Result Performing Organization Address [facility] Co de Phone Number QUEST [employer] [facility] [address] [place] [address] * Erythrocyte sedimentation rate (10/19/2019 9:55 AM CDT) Erythrocyte sedimentation rate 8 < OR = 20 mm/h [facility] Blood specimen (specimen) 10/19/2019 9:55 AM CDT 10/19/2019 9:56 AM CDT Miriam VALLE LAB BLOOD ORDERAB LES Final Result Performing Organization Address City/[facility] Co de Phone Number QUEST [facility] [address] [place] [address] * Anti-double stranded DNA antibodies (10/19/2019 9:55 AM CDT) DNA (DS) ab <1 IU/mL [facility] Comment: ? IU/mL ? Interpretation ? < or = 4 ?Negative ? 5-9 ? Indeterminate ? > or = 10 ?? Positive Blood specimen (specimen) 10/19/2019 9:55 AM CDT 10/19/2019 9:56 AM CDT Miriam García DE LAB BLOOD ORDERAB LES Final Result Performing Organization Address City/State/[facility] de Phone Number BETH [facility] [address] [place] [address] * (ABNORMAL) CBC with auto differential (10/19/2019 9:55 AM CDT) WBC 5.7 3.8 - 10.8 Thousand/u L [facility] RBC, POC 4.70 3.80 - 5.10 Million/uL [facility] Hgb 12.7 11.7 - 15.5 g/dL [facility] Hct 39.9 35.0 - 45.0 % [facility] MCV 84.9 80.0 - 100.0 fL [facility] MCH 27.0 27.0 - 33.0 pg [facility] MCHC 31.8(L) 32.0 - 36.0 g/dL [facility] Rdw 15.4(H) 11.0 - 15.0 % [facility] Platelets 335 140 - 400 Thousand/u L [facility] MPV 9.2 7.5 - 12.5 fL [facility] Neutrophils, abs 3,859 1,500 - 7,800 cells/uL [facility] Lymphocytes, abs 1,277 850 - 3,900 cells/uL [facility] Monocyte abs 428 200 - 950 cells/uL [facility] Eosinophils, abs 68 15 - 500 cells/uL [facility] Basophils, abs 68 0 - 200 cells/uL [facility] Neutrophils 67.7 % [facility] Lymphocyte pct 22.4 % [facility] Monocytes 7.5 % [facility] Eosinophils 1.2 % [facility] Basophils 1.2 % [facility] Blood specimen (specimen) 10/19/2019 9:55 AM CDT 10/19/2019 9:56 AM CDT Miriam VALLE LAB BLOOD ORDERAB LES Final Result QUEST [facility] [address] [place] [address] * (ABNORMAL) CRP (acute phase) (10/19/2019 9:55 AM CDT) C-RP 11.3(H) <8.0 mg/L [facility] Blood specimen (specimen) 10/19/2019 9:55 AM CDT 10/19/2019 9:56 AM CDT Miriam VALLE LAB BLOOD ORDERAB LES Final Result [facility] [address] [place] [address] * Comprehensive metabolic panel (10/19/2019 9:55 AM CDT) Glucose 92 65 - 99 mg/dL [facility] Comment: ? Fasting reference interval BUN 10 7 - 25 mg/dL [facility] Creatinine 0.94 0.50 - 1.10 mg/dL [facility] eGFR NON-AFR. GAMBIAN 73 > OR = 60 mL/min/1. 73m2 [facility] EGFR 85 > OR = 60 mL/min/1. 73m2 [facility] BUN/creat ratio NOT APPLICABLE 6 - 22 (calc) [facility] Sodium 139 135 - 146 mmol/L [facility] Potassium, pl 4.0 3.5 - 5.3 mmol/L [facility] Chloride 105 98 - 110 mmol/L [facility] CO2 25 20 - 32 mmol/L [facility] Calcium 9.1 8.6 - 10.2 mg/dL [facility] Protein, sr 6.3 6.1 - 8.1 g/dL [facility] Albumin 3.9 3.6 - 5.1 g/dL [facility] GLOBULIN 2.4 1.9 - 3.7 g/dL (calc) [facility] Alb/glob ratio 1.6 1.0 - 2.5 (calc) [facility] Bilirubin, total 0.2 0.2 - 1.2 mg/dL [facility] Alk phos 101 31 - 125 U/L [facility] AST 13 10 - 35 U/L [facility] ALT (SGPT) 19 6 - 29 U/L [facility] Blood specimen (specimen) 10/19/2019 9:55 AM CDT 10/19/2019 9:56 AM CDT us Miriam VALLE LAB BLOOD ORDERAB LES Final Result [facility] [address] [address] * Protein / creatinine ratio, urine, random (10/19/2019 9:55 AM CDT) Creatinine, ur 124 20 - 275 mg/dL [facility] Protein/creatin ine ratio 89 21 - 161 mg/g creat [facility] Protein/Creatin ine Ratio 0.089 0.021 - 0.161 mg/mg creat [facility] Protein, ur, quant 11 5 - 24 mg/dL [facility] Urine 10/19/2019 9:55 AM CDT 10/19/2019 9:56 AM CDT Miriam VALLE LAB URINE ORDERAB LES Final Result [facility] [address] [address] [address] * Urinalysis reflex to microscopic and culture Urine, bladder (10/19/2019 9:55 AM CDT) Color, ur YELLOW YELLOW [facility] Appearance, ur CLEAR CLEAR [facility] Specific gravity 1.015 1.001 - 1.035 [facility] pH, ur 6.0 5.0 - 8.0 [facility] Glucose, ur NEGATIVE NEGATIVE [facility] Bilirubin, ur NEGATIVE NEGATIVE [facility] Ketones, ur NEGATIVE NEGATIVE [facility] Blood, ur NEGATIVE NEGATIVE [facility] Protein, ur, quant NEGATIVE NEGATIVE [facility] Nitrites, ur NEGATIVE NEGATIVE [facility] Leukocyte esterase, ur NEGATIVE NEGATIVE [facility] WBC, ur NONE SEEN < OR = 5 /HPF [facility] RBC, ur NONE SEEN < OR = 2 /HPF [facility] Epithelial cells, squamous, ur 0-5 < OR = 5 /HPF [facility] Bacteria, ur, quant NONE SEEN NONE SEEN /HPF [facility] Calcium oxalate crystals, ur FEW NONE OR FEW /HPF [facility] Hyaline cast NONE SEEN NONE SEEN /LPF [facility] Urine culture NO CULTURE INDICATED [facility] Urine, bladder 10/19/2019 9: 55 AM CDT 10/19/2019 9:56 AM CDT Miriam VALLE LAB MICROBIOLOGY - GENERAL ORDERABLES Final Result Performing Organization Address City/[facility]/ZIP Co de Phone Number QUEST [facility] [address] [address] documented in this encounter Visit Diagnoses Diagnosis Rheumatoid arthritis of multiple sites without rheumatoid factor (CMS/HCC) (HCC)- Primary Encounter for long-term (current) use of medications Encounter for long-term (current) use of other medications Osteoporosis without current pathological fracture Primary osteoarthritis of both knees documented in this encounter Discontinued Medications Medication Sig Discontinue Reason Start Date End Da te ondansetron ODT (ZOFRAN-ODT) 8 mg disintegrating tablet Take 1 tablet (8 mg total) by mouth every 8 (eight) hours as needed for nausea or vomiting Reorder 07/09/2019 10/19/2019 hydroxychloroquine (PLAQUENIL) 200 mg tablet 200 mg Duplicate order 2019 documented as of this encounter Care Teams Nanny Babysitter Relationship Specialty Start Date End Date Isaiah Quiros MD [address] [place] [address] PCP - General Internal Medicine 04/01/17 06/02/20 Isaiah Quiros MD [address] [place] [address] Internal Medicine 02/18/17 03/19/21 Cash Heath III, MD [address] [place] [address] Rheumatology 04/12/17 Alex Mahajan MD [address] [place] [address] Referring Physician Internal Medicine 05/07/19 1 documented as of this encounter
--- OUTSIDE RECORDS SUMMARY | 2024-04-29 19:24 | XMS_ITS | Encounter Summary ---
Author Organization [facility] Facility Care Team Providers Care Appeals Rn Name Role Phone Isaiah Quiros MD Unavailable Isaiah Quiros MD Primary Care Provider [phone] Kumar CARRILLO MD, Cash Howard Unavailable [phone] Encounter Details Date Type Department Care Team (Latest Contact Info) Description 04/23/2019 Travel Social History Tobacco Use Types Packs/Day Years Used Date Smoking Tobacco: Never Alcohol Use Standard Drinks/Week Comments No 0 (1 standard drink = 0.6 oz pur e alcohol) Comments No Sex and Gender Information Value Date Recorded Sex Assigned at Not on file 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 Gender Identity Female 08/14/2022 11:32 AM CDT Sexual Orientation Straight 02/13/2023 7: 01 AM CDT documented as of this encounter Plan of Treatment Not on file documented as of this encounter Visit Diagnoses Not on filedocumented in this encounter Care Teams Appeals Rn Relationship Specialty Start Date End Date Isaiah Quiros MD [address] [place] [address] PCP - General Internal Medicine 04/01/17 06/02/20 Isaiah Quiros MD [address] [place] [address] Internal Medicine 02/18/17 03/19/21 Cash Heath III, MD [address] [address] Rheumatology 04/12/17 documented as of this encounter
--- OUTSIDE RECORDS SUMMARY | 2024-04-29 19:24 | XMS_ITS | Encounter Summary ---
Author Organization [facility] Address [address] [place] [address] Phone Care Team Providers Care Composite Worker Name Role Phone Isaiah Quiros MD Unavailable Isaiah Quiros MD Primary Care Provider [phone] Kumar CARRILLO MD, Cash Howard Unavailable [phone] Alex Mahajan MD Unavailable [phone] Reason for Visit * Reason Comments Rheumatoid Arthritis Encounter Details Date Type Department Care Team (Late st Contact Info) Description 07/09/2019 9:00 AM CDT Office Visit [facility] [address] [place] [address] Miriam Frye PA [address] [place] [address] Rheumatoid arthritis of multiple sites without rheumatoid factor (CMS/HCC) (Primary Dx); Osteoporosis without current pathological fracture, unspecified osteoporosis type; Frequent infections; Encounter for long-term (current) use of medications; Meredith-Danlos disease Social History Tobacco Use Types Packs/Day Years Used Date Smoking Tobacco: Never Alcohol Use Standard Drinks/Week Comments No 0 (1 standard drink = 0.6 oz pur e alcohol) Comments No Sex and Gender Information Value Date Recorded Sex Assigned at Not on file Legal Sex Female 9:24 PM PRODUCT DEVELOPER Gender Identity Female 08/14/2022 11:32 AM CDT Sexual Orientation Straight 02/13/2023 7: 01 AM CDT COVID-19 Exposure Response Date Recorded In the last month, have you been in contact with someone who was confirmed or suspected to have Coronavirus / COVID-19? No / Unsure 07/09/2019 8:45 AM CDT documented as of this encounter Last Filed Vital Signs Vital Sign Reading Time Taken Comments Blood Pressure 128/88 07/09/2019 8:47 AM CDT Pulse 93 07/09/2019 8:47 AM CDT Temperature - - Respiratory Rate - - Oxygen Saturation - - Inhaled Oxygen Concentration - - Weight 99.8 kg (220 lb) 07/09/2019 8:47 AM CDT Height 167.6 cm (5' 6 ) 07/09/2019 8:47 AM CDT Body Mass Index 35.51 07/09/2019 8:47 AM CDT documented in this encounter Ordered Prescriptions Prescription Sig Dispense Quantity Refills Last Filled Start Date End Date ondansetron ODT (ZOFRAN-ODT) 8 mg disintegrating tablet Take 1 tablet (8 mg total) by mouth every 8 (eight) hours as needed for nausea or vomiting 60 tablet 07/09/2019 0 documented in this encounter Progress Notes * Miriam Frye PA - 07/09/2019 9:00 AM CDT Images from the original note were not included. Subjective/Objective Patient ID: Madalyn Smith is a 44 y.o. female. Chief Complaint Joint pain HPI Had 1 orencia infusion in April then soon after ended up with pneumonia and it took her over a month to get over it. Still has slight pnd, has not restarted her imuran also. 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 She also has to drive [address] to get here. No sob, cp, rashes, oral or nose ulcers. occ nausea with imuran, uses zofran prn. Handsare painful and swollen. Joints feel great when she is on orencia and imuran. Review of Systems Constitutional: Negative for [...] dry. Psychiatric: Normal mood. Vitals reviewed. CDAI: 27 Labs Lab Results Component Value Date WBC [...] Plan: High cdai. On orencia IV but only had 1 infusion in April then ended up with pneumonia. She feelsbetter when she is on it. Will change to sq Orencia to make it more convenient for patient. Pt getsinfections easily despite nl IgG and Orencia has the lowest risk of infections of all the biologicsso will continue it. Continue imuran 50mg bid. [...] r/o aortic aneurysm, to discuss with pcp. Other orders - ondansetron ODT (ZOFRAN-ODT) 8 mg disintegrating tablet; Take 1 tablet (8 mg total) by mouth every 8 (eight) hours as needed for nausea or vomiting documented in this encounter Miscellaneous Notes * Result Encounter Note - Miriam Frye PA - 07/10/2019 2:16 PM CDT Mild anemia, has this been addressed with her pcp, are her menses heavy? If not needs anemia panel checked and repeat cbc in 2 weeks. plts elevated but usually this might be due to inflammation. Sodium low, to pcp. * Assessment & Plan Note - Miriam Frye PA - 07/08/2019 8:29 AM CDTAssociated Problem(s): Encounter for long-term [...] Plan Note - Miriam Frye PA - 07/08/2019 8:28 AM CDTAssociated Problem(s): Meredith-Danlos disease Was advised at last visit to get chest CT to r/o aortic aneurysm, to discuss with pcp. * Assessment & Plan Note - Miriam Frye PA - 07/08/2019 8:27 AM CDTAssociated Problem(s): Frequent infections Normal serum immunoglobulins. * Assessment & Plan Note - Miriam Frye PA - 07/08/2019 8:27 AM CDTAssociated Problem(s): Osteoporosis without current pathological fracture bds checked by pcp in past, is taking ca and vit d and pcp checked vit D and PTH per pt was wnl. Her pcp started her on alendronate 70mg po qweek. Taking ca + vit d 1200mg qd. * Assessment & Plan Note - Miriam Frye PA - 07/08/2019 8:27 AM CDTAssociated Problem(s): Psoriatic arthritis (HCC) High cdai. On orencia IV but only had 1 infusion in April then ended up with pneumonia. She feelsbetter when she is on it. Will change to sq Orencia to make it more convenient for patient. Pt getsinfections easily despite nl IgG and Orencia has the lowest risk of infections of all the biologicsso will continue it. Continue imuran 50mg bid. [...] Diagnosis Comments CBC WITH AUTO DIFFERENTIAL Routine 07/09/2019 10:31 AM CDT Rheumatoid arthritis of multiple sites without rheumatoid factor (CMS/HCC) Encounter for long-term (current) use of medications ERYTHROCYTE SEDIMENTATION RATE Routine 07/09/2019 10:31 AM CDT Rheumatoid arthritis of multiple sites without rheumatoid factor (CMS/HCC) Encounter for long-term (current) use of medications CRP (ACUTE PHASE) Routine 07/09/2019 10: 31 AM CDT Rheumatoid arthritis of multiple sites without rheumatoid factor (CMS/HCC) Encounter for long-term (current) use of medications COMPREHENSIVE METABOLIC PANEL Routine 07/09/2019 10:31 AM CDT Rheumatoid arthritis of multiple sites without rheumatoid factor (CMS/HCC) Encounter for long-term (current) use of medications documented in this encounter Results * Erythrocyte sedimentation rate (07/09/2019 10:31 AM CDT) Erythrocyte sedimentation rate 11 < OR = 20 mm/h [facility] [place] Blood specimen (specimen) 07/09/2019 10:31 AM CDT 07/09/2019 10:32 AM CDT Narrative Resulting Agency Comment Performing Organization Information: ?Site ID: [place] ?[facility] ?Address: [address] [place] [address] ?Director: Bobby Mcarthur us Miriam [facility] BLOOD ORDERAB LES Final Result [facility] [place] * CRP (acute phase) (07/09/2019 10:31 AM CDT) C-RP 7.9 <8.0 mg/L [facility] [place] Blood specimen (specimen) 07/09/2019 10:31 AM CDT 07/09/2019 10:32 AM CDT Narrative Resulting Agency Comment Performing Organization Information: ?Site ID: [place] ?Name: [facility] ?Address: [address] [address] ?Director: Curtis Noe D.O., MPH us Miriam [facility] BLOOD ORDERAB LES Final Result [facility] [place] * (ABNORMAL) Comprehensive metabolic panel (07/09/2019 10:31 AM CDT) Glucose 87 65 - 99 mg/dL [facility] [place] Comment: ? Fasting reference interval BUN 15 7 - 25 mg/dL [facility] [place] Creatinine 0.86 0.50 - 1.10 mg/dL [facility] [place] eGFR NON-AFR. ESTONIAN 82 > OR = 60 mL/min/1. 73m2 [facility] [place] EGFR 95 > OR = 60 mL/min/1. 73m2 [facility] [place] BUN/creat ratio NOT APPLICABLE 6 - 22 (calc) [facility] [place] Sodium 134(L) 135 - 146 mmol/L [facility] [place] Potassium, pl 4.3 3.5 - 5.3 mmol/L [facility] [place] Chloride 111(H) 98 - 110 mmol/L [facility] [place] CO2 23 20 - 32 mmol/L [facility] [place] Calcium 9.2 8.6 - 10.2 mg/dL [facility] [place] Protein, sr 6.9 6.1 - 8.1 g/dL [facility] [place] Albumin 4.2 3.6 - 5.1 g/dL [facility] [place] GLOBULIN 2.7 1.9 - 3.7 g/dL (calc) [facility] [place] Alb/glob ratio 1.6 1.0 - 2.5 (calc) [facility] [place] Bilirubin, total 0.3 0.2 - 1.2 mg/dL [facility] [place] Alk phos 100 31 - 125 U/L [facility] [place] AST 12 10 - 35 U/L [facility] [place] ALT (SGPT) 13 6 - 29 U/L [facility] [place] Blood specimen (specimen) 07/09/2019 10:31 AM CDT 07/09/2019 10:32 AM CDT Narrative Resulting Agency Comment Performing Organization Information: ?Site ID: [place] ?Name: [facility] ?Address: [address] [address] ?Director: Curtis Noe D.O., MPH Miriam [facility] BLOOD ORDERAB LES Final Result [facility] [place] * (ABNORMAL) CBC with auto differential (07/09/2019 10:31 AM CDT) WBC 6.5 3.8 - 10.8 Thousand/u L [facility] [place] RBC, POC 4.90 3.80 - 5.10 Million/uL [facility] [place] Hgb 11.6(L) 11.7 - 15.5 g/dL [facility] [place] Hct 37.9 35.0 - 45.0 % [facility] MCV 77.3(L) 80.0 - 100.0 fL [facility] [place] MCH 23.7(L) 27.0 - 33.0 pg [facility] [place] MCHC 30.6(L) 32.0 - 36.0 g/dL [facility] [place] Rdw 17.4(H) 11.0 - 15.0 % [facility] [place] Platelets 425(H) 140 - 400 Thousand/u L [facility] [place] MPV 9.0 7.5 - 12.5 fL [facility] [place] Neutrophils, abs 4,563 1,500 - 7,800 cells/uL [facility] [place] Lymphocytes, abs 1,339 850 - 3,900 cells/uL [facility] [place] Monocyte abs 416 200 - 950 cells/uL [facility] [place] Eosinophils, abs 91 15 - 500 cells/uL [facility] [place] Basophils, abs 91 0 - 200 cells/uL [facility] [place] Neutrophils 70.2 % [facility] [place] Lymphocyte pct 20.6 % [facility] [place] Monocytes 6.4 % [facility] [place] Eosinophils 1.4 % [facility] [place] Basophils 1.4 % [facility] [place] Blood specimen (specimen) 07/09/2019 10:31 AM CDT 07/09/2019 10:32 AM CDT Narrative Resulting Agency Comment Performing Organization Information: ?Site ID: [place] ?Name: [facility] ?Address: [address] [place] [address] ?Director: Bobby Mcarthur us Miriam [facility] BLOOD ORDERAB LES Final Result [facility] [place] documented in this encounter Visit Diagnoses Diagnosis Rheumatoid arthritis of multiple sites without rheumatoid factor (CMS/HCC) (HCC)- Primary Osteoporosis without current pathological fracture, unspecified osteoporosis type Frequent infections Encounter for long-term (current) use of medications Encounter for long-term (current) use of other medications Meredith-Danlos disease Meredith-Danlos syndrome documented in this encounter Discontinued Medications Medication Sig Discontinue Reason Start Date End Da te ondansetron ODT (ZOFRAN-ODT) 8 mg disintegrating tablet DISSOLVE 1 TABLET BY MOUTH EVERY 8 HOURS DIRECTED NEEDED FOR NAUSEA AND VOMITING X 2 DAYS Reorder 12/31/2018 07/09/2019 HYDROcodone-acetaminophen (NORCO) 5-325 mg per tablet TK 1 T PO Q 4-6 H PRN Duplicate order 08/20/2018 07/09/2019 documented as of this encounter Care Teams Composite Worker Relationship Specialty Start Date End Date Isaiah Quiros MD [address] [place] [address] PCP - General Internal Medicine 04/01/17 06/02/20 Isaiah Quiros MD [address] [place] [address] Internal Medicine 02/18/17 03/19/21 Cash Heath III, MD [address] [place] [address] Rheumatology 04/12/17 Alex Mahajan MD [address] [place], [place] [id number] Referring Physician Internal Medicine 05/07/19 1 documented as of this encounter
--- OUTSIDE RECORDS SUMMARY | 2024-04-29 19:24 | XMS_ITS | Encounter Summary ---
Author Organization [facility] Address [address] [place] [address] Phone Care Team Providers Care Senior Manager Asset Protection Name Role Phone Isaiah Quiros MD Unavailable Isaiah Quiros MD Primary Care Provider [phone] Kumar CARRILLO MD, Cash Howard Unavailable [phone] Encounter Details Date Type Department Care Team (Late st Contact Info) Description 10/01/[address] [address] Tiara Rainey Social History Tobacco Use Types Packs/Day Years Used Date Smoking Tobacco: Never Alcohol Use Standard Drinks/Week Comments No 0 (1 standard drink = 0.6 oz pur e alcohol) Comments No Sex and Gender Information Value Date Recorded Sex Assigned at Not on file Legal Sex Female 9:24 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 Advised pt to drink water prior to her appt for infusions. * Telephone Encounter - Miriam Frye PA - 10/01/2018 5:04 PM CDT I would like to avoid a port because that is a source of infection. Our nurses are very good. * Telephone Encounter - Tiara Rainey - 10/01/2018 11:15 AM CDT Pt left vm stating she has small veins & is always a hard stick. She had her 1st infusion recently & states her dad recently had to have chemo & they put in a port for him. She wants to know if you would recommend a port for her. I spoke to Nadine & Maisha about this & Nadine said she got the pt on the 1st try for her infusion. She did confirm pt has small veins & said maybeI just got israel but I did get her on 1 stick documented in this encounter Plan of Treatment Not on file documented as of this encounter Visit Diagnoses Not on filedocumented in this encounter Care Teams Senior Manager Asset Protection Relationship Specialty Start Date End Date Isaiah Quiros MD [address] [place] [address] PCP - General Internal Medicine 04/01/17 06/02/20 Isaiah Quiros MD [address] [place] [address] Internal Medicine 02/18/17 03/19/21 Cash Heath III, MD [address] [place] [address] Rheumatology 04/12/17 documented as of this encounter
--- OUTSIDE RECORDS SUMMARY | 2024-04-29 19:24 | XMS_ITS | Encounter Summary ---
Author Organization [facility] Address [address] [place] [address] Phone Care Team Providers Care Android Software Engineer Name Role Phone Isaiah Quiros MD Unavailable Isaiah Quiros MD Primary Care Provider [phone] Kumar CARRILLO MD, Cash Howard Unavailable [phone] Encounter Details Date Type Department Care Team (Late st Contact Info) Description 04/30/2019 Telephone [facility] [address] [place] [address] Tiara Rainey Social History Tobacco Use Types Packs/Day Years Used Date Smoking Tobacco: Never Alcohol Use Standard Drinks/Week Comments No 0 (1 standard drink = 0.6 oz pur e alcohol) Comments No Sex and Gender Information Value Date Recorded Sex Assigned at Not on file Legal Sex Female 9:24 PM RESIDENTIAL NURSE Gender Identity Female 08/14/2022 11:32 AM CDT Sexual Orientation Straight 02/13/2023 7: 01 AM CDT documented as of this encounter Miscellaneous Notes * Telephone Encounter - Tiara Rainey - 04/30/2019 8:58 AM CST Pt called to check on her lab results to be sure she can have her infusion scheduled for 3 PM. The results are not yet available. I called [facility] & the last labs they have are from 04/23/2019. I went digging in her chart & realized per my note on 04/27/2019 that I did speak to her about her labs& the ones missing are the follow up labs BB ordered due to her mild anemia. Called pt back & she now remembers our conversation on 04/27/2019 & she has the order I mailed her. She will have those drawn this afternoon when she comes for her infusion. DENTIAL NURSE documented in this encounter Plan of Treatment Not on file documented as of this encounter Visit Diagnoses Not on filedocumented in this encounter Care Teams Android Software Engineer Relationship Specialty Start Date End Date Isaiah Quiros MD [address] [place] [address] PCP - General Internal Medicine 04/01/17 06/02/20 Isaiah Quiros MD [address] [place] [address] Internal Medicine 02/18/17 03/19/21 Cash Heath III, MD [address] [facility] [address] [place] [address] Rheumatology 04/12/17 documented as of this encounter
--- OUTSIDE RECORDS SUMMARY | 2024-04-29 19:24 | XMS_ITS | Encounter Summary ---
Author Organization [facility] Address [address] [place] [address] Phone Care Team Providers Care Analyst Programmer Name Role Phone Isaiah Quiros MD Unavailable Isaiah Quiros MD Primary Care Provider [phone] Kumar CARRILLO MD, Cash Howard Unavailable [phone] Reason for Visit * Reason Onset Date Comments González [id number] exp 08.28.19. Please schedule pa 09/08/2018 Encounter Details Date Type Department Care Team (Late st Contact Info) Description 09/08/[address] [address] Ghazala Westbrook [id number] exp 08.28.19. 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 ??Please schedule patient. documented in this encounter Plan of Treatment Not on file documented as of this encounter Visit Diagnoses Not on filedocumented in this encounter Care Teams Analyst Programmer Relationship Specialty Start Date End Date Isaiah Quiros MD [address] [place] [address] PCP - General Internal Medicine 04/01/17 06/02/20 Isaiah Quiros MD [address] [place] [address] Internal Medicine 02/18/17 03/19/21 Cash Heath III, MD [address] [facility] [address] [place] [address] Rheumatology 04/12/17 documented as of this encounter
--- OUTSIDE RECORDS SUMMARY | 2024-04-29 19:24 | XMS_ITS | Encounter Summary ---
Author Organization [facility] Care Team Providers Care Group Exercise Instructor Name Role Phone Isaiah Quiros MD Unavailable Isaiah Quiros MD Primary Care Provider [phone] Kumar CARRILLO MD, Cash Howard Unavailable [phone] Alex Mahajan MD Unavailable [phone] Encounter Details Date Type Department Care Team (Latest Contact Info) Description 07/09/2019 Travel Social History Tobacco Use Types Packs/Day Years Used Date Smoking Tobacco: Never Alcohol Use Standard Drinks/Week Comments No 0 (1 standard drink = 0.6 oz pur e alcohol) Comments No Sex and Gender Information Value Date Recorded Sex Assigned at Not on file 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COUNTRY Gender Identity Female 08/14/2022 11:32 AM CDT [...] on filedocumented in this encounter Care Teams Group Exercise Instructor Relationship Specialty Start Date End Date Isaiah Quiros MD [address] [place] [address] PCP - General Internal Medicine 04/01/17 06/02/20 Isaiah Quiros MD [address] [facility] 1 [place] [address] Internal Medicine 02/18/17 03/19/21 Cash Heath III, MD [address] [place] [address] Rheumatology 04/12/17 Alex Mahajan MD [address] [place] [address] Referring Physician Internal Medicine 05/07/19 1 documented as of this encounter
--- OUTSIDE RECORDS SUMMARY | 2024-04-29 19:24 | XMS_ITS | Encounter Summary ---
Author Organization [facility] Facility Care Team Providers Care Building Appraiser Name Role Phone Isaiah Quiros MD Unavailable Isaiah Quiros MD Primary Care Provider [phone] Kumar CARRILLO MD, Cash Howard Unavailable Encounter Details Date Type Department Care Team (Latest Contact Info) Description 09/29/2018 Travel Social History Tobacco Use Types Packs/Day Years Used Date Smoking Tobacco: Never Alcohol Use Standard Drinks/Week Comments No 0 (1 standard drink = 0.6 oz pur e alcohol) Comments No Sex and Gender Information Value Date Recorded Sex Assigned at Not on file Legal Sex Female 9:24 PM TECHNOLOGY DIRECTOR Gender Identity Female 08/14/2022 11:32 AM CDT Sexual Orientation Straight 02/13/2023 7: 01 AM CDT documented as of this encounter Plan of Treatment Not on file documented as of this encounter Visit Diagnoses Not on filedocumented in this encounter Care Teams Building Appraiser Relationship Specialty Start Date End Date Isaiah Quiros MD [address] [place] [address] PCP - General Internal Medicine 04/01/17 06/02/20 Isaiah Quiros MD [address] [place] [address] Internal Medicine 02/18/17 03/19/21 Cash Heath III, MD [address] [address] Rheumatology 04/12/17 documented as of this encounter
--- OUTSIDE RECORDS SUMMARY | 2024-04-29 19:24 | XMS_ITS | Encounter Summary ---
Author Organization [facility] Address [address] [facility] [address] [place] [address] Care Team Providers Care Environmental Property Assessor Name Role Phone Isaiah Quiros MD Unavailable Isaiah Quiros MD Primary Care Provider [phone] Kumar CARRILLO MD, BryonNatan Unavailable [phone] Reason for Visit * Reason Comments Well Women Visit and having abdominal pain around belly button area, also some pain with intercourse Encounter Details Date Type Department Care Team (Late st Contact Info) Description 12/24/2018 11:45 AM CDT Office Visit [facility] Obstetrical Gynecology [address] [facility] [address] [place] [address] Curtis Oseguera MD [address] [place] [address] [address] [place] [address] Well woman exam (Primary Dx); Pelvic pain Social History Tobacco Use Types Packs/Day Years Used Date Smoking Tobacco: Never Alcohol Use Standard Drinks/Week Comments No 0 (1 standard drink = 0.6 oz pur e alcohol) Comments No Sex and Gender Information Value Date Recorded Sex Assigned at Not on file 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 Gender Identity Female 08/14/2022 11:32 AM CDT Sexual Orientation Straight 02/13/2023 7: 01 AM CDT documented as of this encounter Last Filed Vital Signs Vital Sign Reading Time Taken Comments Blood Pressure 110/60 12/24/2018 11:52 AM CDT Pulse - - Temperature - - Respiratory Rate - - Oxygen Saturation - - Inhaled Oxygen Concentration - - Weight 90.3 kg (199 lb) 12/24/2018 11:52 AM CDT Height 167.6 cm (5' 6 ) 12/24/2018 11:52 AM CDT Body Mass Index 32.12 12/24/2018 11:52 AM CDT documented in this encounter Ordered Prescriptions Prescription Sig Dispense Quantity Refills Last Filled Start Date End Date norethindrone-ethi nyl estradiol-iron (MICROGESTIN FE 1.5, 28,) 1.5 mg-30 mcg per tablet Take 1 tablet by mouth daily 84 tablet 4 12/24/2018 08/30/2021 documented in this encounter Progress Notes * Curtis Oseguera MD - 12/24/2018 11:45 AM CDT Subjective Patient ID: Julian Sauer is a 43 y.o. female. CC: Well woman exam. Having abdominal pain around belly button area and some pain with intercourse. Last pap: 08/2015 NIL HPV neg. Last mamm: 2017 at [facility] per pt. Last colon: 2016 hemorrhoids HPI Patient is a 43-year-old 2, para 2, who presents for well-woman exam. Currently on Loestrin 1.5 for ovarian suppression secondary to history of recurrent ovarian cyst. These ovulatory events would necessitate emergency room visits. This seems to be improved. She hasnot yet had a period since starting the pill however period using the pill 3 weeks on, 1 week off. Doing self-breast exams. No breast issues. Mammogram is due. Also has nonspecific centralized abdominal pain, nonradiating, no GI issues or issues. No abnormal discharge. Symptoms for the last week or so. Review of Systems Constitutional: Negative for activity change, appetite change, fatigue and unexpected weight change. HENT: Negative for sinus pressure and sore throat. Eyes: Negative for visual disturbance. Respiratory: Negative for shortness of breath. Cardiovascular: Negative for chest pain. Gastrointestinal: Positive for abdominal pain and constipation. Negative for nausea and vomiting. Endocrine: Negative for cold intolerance and polyuria. Genitourinary: Negative for difficulty urinating, dyspareunia, dysuria, hematuria, menstrual problem, pelvic pain, urgency, vaginal bleeding, vaginal discharge and vaginal pain. Musculoskeletal: Negative for back pain. Skin: Negative for color change and rash. Neurological: Negative for dizziness and weakness. Psychiatric/Behavioral: Negative for agitation, sleep disturbance and suicidal ideas. The patient is not nervous/anxious. Breast: Negative for tenderness, breast redness, breast discharge and lump(s). Objective Physical Exam Constitutional: She is oriented to person, place, and time. She appears well- developed and well-nourished. Genitourinary: Vagina normal and uterus normal. Right labia: normal. Left Labia: normal. Right adnexa normal. Left adnexa normal. Cervix: Normal exam. Rectal exam shows no external hemorrhoid. HENT: Head: Normocephalic. Eyes: No scleral icterus. Cardiovascular: Normal rate and regular rhythm. Pulmonary/Chest: Breath sounds normal. Right breast exhibits no mass and no skin change. Left breast exhibits no mass and no skin change. Breasts are symmetrical. Abdominal: Soft. No erythema noted, minimal to moderate tenderness periumbilical, no rebound, guarding or rigidity noted. Lymphadenopathy: She has no axillary adenopathy. Neurological: She is alert and oriented to person, place, and time. Gait normal. Skin: Skin is warm and dry. Psychiatric: She has a normal mood and affect. Her behavior is normal. Judgment normal. Nursing note and vitals reviewed. Assessment/Plan Diagnoses and all orders for this visit: Well woman exam (Primary) - ThinPrep Pap with HPV; Future - Screening Mammogram 2D Bilateral; Future Continue present management. Pap smear obtained. If normal recommend Q 3 years. Mammogram ordered and encouraged. We will also continue Loestrin FEV1 0.09/18. This is been working well for ovarian suppression. Ultrasound has been obtained for her abdominal pain. We will check endometrial thickness at that time period if normal continue pills as is period Pelvic pain - US Pelvis W Endovaginal; Future I will call patient with results. Pain seems to be localized just inferior to the umbilicus. No rebound or guarding is noted. For if ultrasound is unremarkable, recommend that she follow up with primary care for GI workup. She does have a history of IBS as well as diverticulitis. * Curtis Oseguera MD - 12/24/2018 11:45 AM CDT Please notify patient that Pap smear is normal. documented in this encounter Plan of Treatment Not on file documented as of this encounter Procedures Procedure Name Priority Date/Time Associated Diagnosis Comments THINPREP PAP WITH HPV Routine 12/24/2018 3:41 PM CDT Well woman exam documented in this encounter Results * ThinPrep Pap with HPV (12/24/2018 3:41 PM CDT) 12/24/2018 3:41 PM CDT 12/25/2018 8:54 AM CDT Narrative [facility] - 12/26/2018 2:53 PM CDT [facility] of Pathology [address] [place], [place] [id number] Final Report with Addendum Patient Name: ??JULIAN SAUER Address: ??[address] [place] [address], ?? [place], [place] [address] Gender: ??F : ??1975 (Age: 43) Service: ??Laboratory Location: ??Lab Hospital #: ??[id number] Patient Type: ?? Ref Lab Taken: ??12/24/2018 Received: ??12/25/2018 Accessioned:: ??12/26/2018 Reported: ??12/26/2018 Physician(s): Curtis Oseguera M.D. [facility] Diagnosis: Source of Specimen: ? SCREENING IMAGED PAP w/ HPV Specimen Adequacy: ?- Satisfactory for evaluation; endocervical/transformation zone component present General Category: ?- Negative for intraepithelial lesion or malignancy ?? Mary Davis, [place](ASCP) Report Electronically Reviewed and Signed Out By [...] determined by the Surgical Pathology Department at [facility] as part of an ongoing quality assistant program and in compliance with federally mandated [...] characteristics determined by the Surgical Pathology Department [facility]. ??It has not been cleared or approved by the U. S. Food and Drug Administration. Curtis Oseguera MD LAB CYTOLOGY ORDERABLES Final Result [facility] [address] [place] [address], [facility] [phone] documented in this encounter Visit Diagnoses Diagnosis Well woman exam- Primary Routine general medical examination at a health care facility Pelvic pain documented in this encounter Discontinued Medications Medication Sig Discontinue Reason Start Date End Da te nitrofurantoin monohydrate (MACROBID) 100 mg capsule TK 1 C PO Q 12 H 09/03/2018 12/24/2018 norethindrone-ethinyl estradiol-iron (LOESTRIN FE 1.5/30, 28-DAY,) 1.5 mg-30 mcg per tabletIndications:Pelvic and perineal pain Take 1 tablet by mouth daily 09/09/2018 12/24/2018 documented as of this encounter Historical Medications * This list may reflect changes made after this encounter. potassium citrate ER (UROCIT-K) 15 mEq tablet extended release TK 1 T PO BID 6 12/19/2018 abatacept (ORENCIA) 250 mg injection 01/18/2020 AMITIZA 24 mcg capsule TK ONE C PO BID WF AND WATER 1 12/15/2018 01/17/2023 VENTOLIN HFA 90 mcg/actuation inhaler INL 1 TO 2 PFS PO Q 4 TO 6 H PRF COUGH 0 11/08/2018 08/30/2021 added in this encounter Care Teams Environmental Property Assessor Relationship Specialty Start Date End Date Isaiah Quiros MD [address] [place] [address] PCP - General Internal Medicine 04/01/17 06/02/20 Isaiah Quiros MD [address] [place] [address] Internal Medicine 02/18/17 03/19/21 Cash Heath III, MD [address] [facility] [address] [place] [address] Rheumatology 04/12/17 documented as of this encounter
--- OUTSIDE RECORDS SUMMARY | 2024-04-29 19:24 | XMS_ITS | Encounter Summary ---
Author Organization [facility] Care Team Providers Care Singeing Torch Operator Name Role Phone Isaiah Quiros MD Unavailable Isaiah Quiros MD Primary Care Provider [phone] Kumar CARRILLO MD, Cash Howard Unavailable [phone] Encounter Details Date Type Department Care Team (Latest Contact Info) Description 12/24/2018 Travel Social History Tobacco Use Types Packs/Day Years Used Date Smoking Tobacco: Never Alcohol Use Standard Drinks/Week Comments No 0 (1 standard drink = 0.6 oz pur e alcohol) Comments No Sex and Gender Information Value Date Recorded Sex Assigned at Not on file 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 Gender Identity Female 08/14/2022 11:32 AM CDT Sexual Orientation Straight 02/13/2023 7: 01 AM CDT documented as of this encounter Plan of Treatment Not on file documented as of this encounter Visit Diagnoses Not on filedocumented in this encounter Care Teams Singeing Torch Operator Relationship Specialty Start Date End Date Isaiah Quiros MD [address] [place] [address] PCP - General Internal Medicine 04/01/17 06/02/20 Isaiah Quiros MD [address] [place] [address] Internal Medicine 02/18/17 03/19/21 Cash Heath III, MD [address] [address] Rheumatology 04/12/17 documented as of this encounter
--- OUTSIDE RECORDS SUMMARY | 2024-04-29 19:24 | XMS_ITS | Encounter Summary ---
Author Organization [facility] Address [address] [place] [address] Phone Care Team Providers Care Shake Sawyer Name Role Phone Isaiah Quiros MD Unavailable Isaiah Quiros MD Primary Care Provider [phone] Kumar CARRILLO MD, Cash Howard Unavailable [phone] Alex Mahajan MD Unavailable [phone] Encounter Details Date Type Department Care Team (Late st Contact Info) Description 02/02/2020 Telephone [facility] [address] [place] [address] Maisha Avila RN Social History Tobacco Use Types Packs/Day Years Used Date Smoking Tobacco: Never Alcohol Use Standard Drinks/Week Comments No 0 (1 standard drink = 0.6 oz pur e alcohol) Comments No Sex and Gender Information Value Date Recorded Sex Assigned at Not on file Legal Sex Female 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 documented in this encounter Plan of Treatment Not on file documented as of this encounter Visit Diagnoses Not on filedocumented in this encounter Care Teams Shake Sawyer Relationship Specialty Start Date End Date Isaiah Quiros MD [address] [place] [address] PCP - General Internal Medicine 04/01/17 06/02/20 Isaiah Quiros MD [address] [place] [address] Internal Medicine 02/18/17 03/19/21 Cash Heath III, MD [address] [place] [place], [place] [id number] Rheumatology 04/12/17 Alex Mahajan MD [address] [place] [address] [place], [place] [id number] Referring Physician Internal Medicine 05/07/19 1 documented as of this encounter
--- OUTSIDE RECORDS SUMMARY | 2024-04-29 19:24 | XMS_ITS | Encounter Summary ---
Author Organization [facility] Address [address] [place] [phone] Phone Care Team Providers Care Boiler/Chiller Operator Name Role Phone Isaiah Quiros MD Unavailable Isaiah Quiros MD Primary Care Provider [phone] Kumar CARRILLO MD, Cash Howard Unavailable [phone] Alex Mahajan MD Unavailable [phone] Reason for Referral * Diagnostic Imaging (Routine) - Closed Specialty Diagnoses / Procedures Referred By Kaylynn phillips Referred To Contact Diagnoses Trochanteric bursitis of right hip Procedures US [facility] Miriam Frye PA [address] [place] [address] Phone: tel: fax: External Order Referral ID Status Reason Start Date Expiration Date Visits Re quested Visits Authorized [id number] Closed 01/22/2020 02/20/2021 1 1 * Diagnostic Imaging (Routine) - Closed Specialty Diagnoses / Procedures Referred By Kaylynn phillips Referred To Contact Diagnoses Trochanteric bursitis of right hip Procedures Hip Miriam Frye PA [address] [place] [address] Phone: tel: fax: External Order Referral ID Status Reason Start Date Expiration Date Visits Re quested Visits Authorized [id number] Closed 01/22/2020 02/20/2021 1 1 Encounter Details Date Type Department Care Team (Late st Contact Info) Description 01/22/2020 11:00 AM CDT Office Visit [facility] [address] [place] [address] Miriam Frye PA [address] [place] [address] Rheumatoid arthritis of multiple sites without rheumatoid factor (CMS/HCC) (Primary Dx); Osteoporosis without current pathological fracture, unspecified osteoporosis type; Frequent infections; Encounter for long-term (current) use of medications; Meredith-Danlos disease; Trochanteric bursitis of right hip; Flu vaccine need; Chronic pain of both knees; Trochanteric bursitis of left hip Social History Tobacco Use Types Packs/Day Years Used Date Smoking Tobacco: Never Alcohol Use Standard Drinks/Week Comments No 0 (1 standard drink = 0.6 oz pur e alcohol) Comments No Sex and Gender Information Value Date Recorded Sex Assigned at Not on file Legal Sex Female 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 Gender Identity Female 08/14/2022 11:32 AM CDT Sexual Orientation Straight 02/13/2023 7: 01 AM CDT documented as of this encounter Last Filed Vital Signs Vital Sign Reading Time Taken Comments Blood Pressure 126/80 01/22/2020 11:23 AM CDT Pulse - - Temperature 36.5 ??C (97.7 ??F) 01/22/2020 11:23 AM C DT Respiratory Rate - - Oxygen Saturation - - Inhaled Oxygen Concentration - - Weight 97.1 kg (214 lb) 01/22/2020 11:23 AM CDT Height - - Body Mass Index 34.54 12/23/2019 2:51 PM CDT documented in this encounter Progress Notes * Miriam Frye PA - 01/22/2020 11:00 AM CDT Images from the original note were not included. Subjective/Objective Patient ID: Madalyn Smith is a 44 y.o. female. Chief Complaint Joint pain HPI Hips and knees continue to hurt. Hurts to lay on her side at night. Rt knee hurts more then lt knee. xrays did not show knee or hip oa. Has not started PT for her rt knee pain. No sob, cp, rashes, oral or nose ulcers. Her iv orencia is scheduled in 12 d. Hands hurt and feel swollen. Triamcinolone inj helped for about 10 d only. No infections. Under a lot of stress. He dad is dying and her son just had a seizure recently. Review of Systems Constitutional: Negative for fatigue [...] dry. Psychiatric: Normal mood. Vitals reviewed. CDAI: 18 Labs Lab Results Component Value Date WBC 8.6 01/07/2020 HGB 13.3 01/07/2020 HCT 41.3 01/07/2020 MCV 87.1 01/07/2020 Lab Results Component Value Date GLUCOSE 100 (H) 01/07/2020 CALCIUM 8.8 01/07/2020 SODIUM 138 01/07/2020 POTASSIUM 4.4 01/07/2020 CO2 19 (L) 01/07/2020 CHLORIDE 106 01/07/2020 BUNSER 15 01/07/2020 CREATININE 1.04 01/07/2020 Lab Results Component Value Date ALT 17 01/07/2020 AST 13 01/07/2020 ALKPHOS 70 01/07/2020 BILITOT 0.3 01/07/2020 Lab Results Component Value Date SEDRATE 14 01/07/2020 Lab Results Component Value Date CRP 10.7 (H) 01/07/2020 Assessment/Plan Diagnoses and all orders for this visit: Rheumatoid arthritis of multiple sites without rheumatoid factor (CMS/HCC) (Primary) Assessment & Plan: Mod cdai, improved from last time although [...] Past serologies: [facility]ise panel 08/2019---labs reveal positive anti-WELDER APPRENTICE antibody which is likely a false positive [...] showed osteoporosis Avise 08/2019---[facility]ise labs reveal positive anti-WELDER APPRENTICE antibody which is likely a false positive due tonegative ASHLEY. ?? Meredith-Danlos disease Assessment & Plan: Was advised in past to get chest CT to r/o aortic aneurysm, to discuss with pcp. Trochanteric bursitis of right hip Assessment & Plan: Schedule rt hip bursa steroid inj under US. Hip xray nl. Orders: - US Hip; Future - US Hip; Future Flu vaccine need - Flu Vaccine MDCK Quad 4y+ IM - Flucelvax Chronic pain of both knees Assessment & Plan: bilat knees hurt but rt is worse. xrays were nl. Will start PT and if she does not improve will mrirt knee next. Trochanteric bursitis of left hip Assessment & Plan: If rt hip bursa inj helps pt to schedule the lt hip bursa steroid inj under US. Hip xray nl. Cosigned by Cash Heath III, MD at 01/22/2020 3:26 PM CDT documented in this encounter Miscellaneous Notes * Assessment & Plan Note - Miriam Frye PA - 01/22/2020 12:57 PM CDTAssociated Problem(s): Trochanteric bursitis of right hip Schedule rt hip bursa steroid inj under US. Hip xray nl. * Assessment & Plan Note - Miriam Frye PA - 01/22/2020 12:56 PM CDTAssociated Problem(s): Chronic pain of both knees bilat knees hurt but rt is worse. xrays were nl. Will start PT and if she does not improve will mrirt knee next. * Assessment & Plan Note - Miriam Frye PA - 01/22/2020 12:56 PM CDTAssociated Problem(s): Trochanteric bursitis of left hip If rt hip bursa inj helps pt to schedule the lt hip bursa steroid inj under US. Hip xray nl. * Assessment & Plan Note - Miriam Frye PA - 01/21/2020 1:08 PM CDTAssociated Problem(s): Osteoporosis without current pathological fracture bds checked by pcp in past, is taking ca and vit d and pcp checked vit D and PTH per pt was wnl. Her pcp started her on alendronate 70mg po qweek. Taking ca + vit d 1200mg qd. * Assessment & Plan Note - Miriam Frye PA - 01/21/2020 1:08 PM CDTAssociated Problem(s): Frequent infections Normal serum immunoglobulins. * Assessment & Plan Note - Miriam Frye PA - 01/21/2020 1:08 PM CDTAssociated Problem(s): Encounter for long-term (current) [...] showed osteoporosis [facility]ise 08/2019---[facility]ise labs reveal positive anti-WELDER APPRENTICE antibody which is likely a false positive due tonegative ASHLEY. ?? * Assessment & Plan Note - Miriam Frye PA - 01/21/2020 1:08 PM CDTAssociated Problem(s): Meredith-Danlos disease Was advised in past to get chest CT to r/o aortic aneurysm, to discuss with pcp. * Assessment & Plan Note - Miriam Frye PA - 01/21/2020 1:08 PM CDTAssociated Problem(s): Psoriatic arthritis (HCC) Images [...] Past serologies: Avise panel 08/2019---labs reveal positive anti-WELDER APPRENTICE antibody which is likely a false positive due tonegative ASHLEY. ?? RF neg but has a possible family hx of psoriatic arthritis (father) so if she develops psoriasis diagnosis will change to psoriatic arthritis. Rt hand US 09/2019 showed: ?? documented in this encounter Plan of Treatment Scheduled Orders Name Type Priority Associated Diagnoses Orde r Schedule US Hip Imaging Schedule Routine , Read Routine (OP Routine) Trochanteric bursitis of right hip Expected: 01/22/2020, Expires: 01/21/2021 US Hip Imaging Schedule Routine , Read Routine (OP Routine) Trochanteric bursitis of right hip Expected: 01/22/2020, Expires: 01/21/2021 documented as of this encounter Visit Diagnoses Diagnosis Rheumatoid arthritis of multiple sites without rheumatoid factor (CMS/HCC) (HCC)- Primary Osteoporosis without current pathological fracture, unspecified osteoporosis type Frequent infections Encounter for long-term (current) use of medications Encounter for long-term (current) use of other medications Meredith-Danlos disease Meredith-Danlos syndrome Trochanteric bursitis of right hip Flu vaccine need Chronic pain of both knees Trochanteric bursitis of left hip documented in this encounter Orders Immunization/Injection Count Last Ordered Date First Ordered Date FLU VACCINE MDCK QUAD 4Y+ IM - FLUCELVAX 1 01/22/2020 documented in this encounter Care Teams Boiler/Chiller Operator Relationship Specialty Start Date End Date Isaiah Quiros MD [address] [place] [address] PCP - General Internal Medicine 04/01/17 06/02/20 Isaiah Quiros MD [address] [place] [address] Internal Medicine 02/18/17 03/19/21 Cash Heath III, MD [address] [facility] [address] [place] [address] Rheumatology 04/12/17 Alex Mahajan MD [address] [facility] [address] [place] [address] Referring Physician Internal Medicine 05/07/19 1 documented as of this encounter
--- OUTSIDE RECORDS SUMMARY | 2024-04-29 19:24 | XMS_ITS | Encounter Summary ---
Author Organization [facility] Address [address] [place] [address] Phone Care Team Providers Care Drive Man Name Role Phone Isaiah Quiros MD Unavailable Isaiah Quiros MD Primary Care Provider [phone] Kumar CARRILLO MD, Cash Howard Unavailable [phone] Alex Mahajan MD Unavailable [phone] Encounter Details Date Type Department Care Team (Late st Contact Info) Description 01/22/2020 Telephone [facility] [address] [place] [address] Miriam Frye PA [address] [place] [address] Social History Tobacco Use Types Packs/Day Years Used Date Smoking Tobacco: Never Alcohol Use Standard Drinks/Week Comments No 0 (1 standard drink = 0.6 oz pur e alcohol) Comments No Sex and Gender Information Value Date Recorded Sex Assigned at Not on file 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 * Telephone Encounter - Miriam Frye PA - 01/22/2020 11:50 AM CDT Please refill her tramadol documented in this encounter Plan of Treatment Not on file documented as of this encounter Visit Diagnoses Not on filedocumented in this encounter Discontinued Medications Medication Sig Discontinue Reason Start Date End Da te traMADoL (ULTRAM) 50 mg tablet Take 1 tablet (50 mg total) by mouth every 8 (eight) hours as needed for pain Reorder 12/23/2019 01/22/2020 documented as of this encounter Care Teams Drive Man Relationship Specialty Start Date End Date Isaiah Quiros MD [address] [place] [address] PCP - General Internal Medicine 04/01/17 06/02/20 Isaiah Quiros MD [address] [place] [address] Internal Medicine 02/18/17 03/19/21 Cash Heath III, MD [address] [place] [address] Rheumatology 04/12/17 Alex Mahaajn MD [address] [place] [address] Referring Physician Internal Medicine 05/07/19 1 documented as of this encounter
--- OUTSIDE RECORDS SUMMARY | 2024-04-29 19:24 | XMS_ITS | Encounter Summary ---
Author Organization [facility] Address [address] [place] [address] Phone Care Team Providers Care Field Clinical Engineer Name Role Phone Isaiah Quiros MD Unavailable Isaiah Quiros MD Primary Care Provider [phone] Kumar CARRILLO MD, Cash Howard Unavailable [phone] Reason for Visit * Reason Onset Date Comments Tramadol Script 04/23/2019 Encounter Details Date Type Department Care Team (Late st Contact Info) Description 04/23/2019 Telephone [facility] [address] [place] [phone] Miriam Frye PA [address] [place] [address] Tramadol Script Social History Tobacco Use Types Packs/Day Years Used Date Smoking Tobacco: Never Alcohol Use Standard Drinks/Week Comments No 0 (1 standard drink = 0.6 oz pur e alcohol) Comments No Sex and Gender Information Value Date Recorded Sex Assigned at Not on file Legal Sex Female 9:24 PM CONSULTING PROJECT DIRECTOR Gender Identity Female 08/14/2022 11:32 AM CDT Sexual Orientation Straight 02/13/2023 7: 01 AM CDT documented as of this encounter Ordered Prescriptions Prescription Sig Dispense Quantity Refills Last Filled Start Date End Date traMADol (ULTRAM) 50 mg tablet Take 1 tablet (50 mg total) by mouth every 8 (eight) hours as needed for pain 90 tablet 04/23/2019 07/09/2019 documented in this encounter Miscellaneous Notes * Telephone Encounter - Maisha Avila RN - 04/23/2019 3:42 PM CONSULTING PROJECT DIRECTOR Scheduled ULTING PROJECT DIRECTOR * Addendum Note - Mick Can - 04/23/2019 3:38 PM CSTAddended by: MICK CAN on: 04/23/2019 03:38 PM Modules accepted: Orders ULTING PROJECT DIRECTOR * Telephone Encounter - Mick Can - 04/23/2019 3:38 PM CST Script called & charted ULTING PROJECT DIRECTOR * Telephone Encounter - Miriam Frye PA - 04/23/2019 1:34 PM CST Restart her orencia iv wesley please! Please call in tramadol 50mg tid prn no refills. ULTING PROJECT DIRECTOR ULTING PROJECT DIRECTOR documented in this encounter Plan of Treatment Not on file documented as of this encounter Visit Diagnoses Not on filedocumented in this encounter Care Teams Field Clinical Engineer Relationship Specialty Start Date End Date Isaiah Quiros MD [address] [place] [address] PCP - General Internal Medicine 04/01/17 06/02/20 Isaiah Quiros MD [address] [place] [address] Internal Medicine 02/18/17 03/19/21 Cash Heath III, MD [address] [facility] [address] [place] [address] Rheumatology 04/12/17 documented as of this encounter
--- OUTSIDE RECORDS SUMMARY | 2024-04-29 19:24 | XMS_ITS | Encounter Summary ---
Author Organization [facility] Address [address] [place] [phone] Phone Care Team Providers Care Primer Inserting Machine Adjuster Name Role Phone Isaiah Quiros MD Unavailable Isaiah Quiros MD Primary Care Provider [phone] Kumar CARRILLO MD, Cash Howard Unavailable [phone] Alex Mahajan MD Unavailable [phone] Reason for Visit * Reason Onset Date Comments González Approved 07/28/2019 Eff: 07/09/2019 - 07/08/2020 Case ID: [id number] Encounter Details Date Type Department Care Team (Late st Contact Info) Description 07/28/2019 Telephone [facility] [address] [place] [phone] Tiara Rainey Approved (Eff: 07/09/2019 - 07/08/2020 Case ID: [id number] ) Social History Tobacco Use Types Packs/Day Years Used Date Smoking Tobacco: Never Alcohol Use Standard Drinks/Week Comments No 0 (1 standard drink = 0.6 oz pur e alcohol) Comments No Sex and Gender Information Value Date Recorded Sex Assigned at Not on file Legal Sex Female 9:24 PM RAKE OPERATOR Gender Identity Female 08/14/2022 11:32 AM [...] Refills Last Filled Start Date End Date abatacept (Orencia ClickJect) 125 mg/mL auto-injectorIndic ations:Rheumatoid Arthritis Inject 1 mL (125 mg total) under the skin every 7 days 4 pen 2 07/28/2019 10/14/2019 documented in this encounter Miscellaneous Notes * Telephone Encounter - Tiara Rainey - 07/28/2019 12:06 PM CDT Reviewing pending PA's on my desk & checked on [employer] portal. Orencia SQ was approved eff: 07/09/2019 - 07/08/2020. Case ID: [id number] Copay Assist Info: RxID: [id number] RxGRP: [id number] RxBIN: [id number]: LOYALTY Script has to go to [facility]. Left to inform pt of approval. She has been on Orencia infusions so does not have to do 1st injection in office . Script is ready to send. documented in this encounter Plan of Treatment Not on file documented as of this encounter Visit Diagnoses Not on filedocumented in this encounter Discontinued Medications Medication Sig Discontinue Reason Start Date End Da te etanercept (ENBREL) 25 mg (1 mL) injection Inject 25 mg under the skin once 07/28/2019 documented as of this encounter Care Teams Primer Inserting Machine Adjuster Relationship Specialty Start Date End Date Isaiah Quiros MD [address] [place], [place] [id number] PCP - General Internal Medicine 04/01/17 06/02/20 Isaiah Quiros MD [address] [place] [address] Internal Medicine 02/18/17 03/19/21 Cash Heath III, MD [address] [place], [place] [id number] Rheumatology 04/12/17 Alex Mahajan MD [address] [place], [place] [id number] Referring Physician Internal Medicine 05/07/19 1 documented as of this encounter
--- OUTSIDE RECORDS SUMMARY | 2024-04-29 19:24 | XMS_ITS | Encounter Summary ---
Author Organization [facility] Address [address] [place] [address] Phone Care Team Providers Care Relief Operator Name Role Phone Isaiah Quiros MD Unavailable Isaiah Quiros MD Primary Care Provider [phone] Kumar CARRILLO MD, Cash Howard Unavailable [phone] Alex Mahajan MD Unavailable [phone] Reason for Visit * Reason Comments Rheumatoid Arthritis Encounter Details Date Type Department Care Team (Late st Contact Info) Description 02/19/2020 8:30 AM CDT Office Visit [facility] [address] [place] [address] Miriam Frye PA [address] [place] [address] Rheumatoid arthritis of multiple sites without rheumatoid factor (CMS/HCC) (Primary Dx); Encounter for long-term (current) use of medications; Primary osteoarthritis of both knees Social History Tobacco Use Types Packs/Day Years Used Date Smoking Tobacco: Never Alcohol Use Standard Drinks/Week Comments No 0 (1 standard drink = 0.6 oz pur e alcohol) Comments No Sex and Gender Information Value Date Recorded Sex Assigned at Not on file Legal Sex Female 9:24 PM DRAMATIC CRITIC Gender Identity Female 08/14/2022 11:32 AM CDT Sexual Orientation Straight 02/13/2023 7: 01 AM CDT documented as of this encounter Last Filed Vital Signs Vital Sign Reading Time Taken Comments Blood Pressure 142/88 02/19/2020 8:35 AM CDT Pulse - - Temperature 36.3 ??C (97.4 ??F) 02/19/2020 8:35 AM CD T Respiratory Rate - - Oxygen Saturation - - Inhaled Oxygen Concentration - - Weight 99.3 kg (219 lb) 02/19/2020 8:35 AM CDT Height 167.6 cm (5' 6 ) 02/19/2020 8:35 AM CDT Body Mass Index 35.35 02/19/2020 8:35 AM CDT documented in this encounter Patient Instructions * Patient Instructions* Miriam Frye PA - 02/19/2020 8:30 AM CDT Cbc/cmp in 2 weeks documented in this encounter Ordered Prescriptions Prescription Sig Dispense Quantity Refills Last Filled Start Date End Date azaTHIOprine (IMURAN) 50 mg tabletIndications: autoimmune disease Take 2 tablets (100 mg total) by mouth 2 (two) times a day 120 tablet 3 02/19/2020 1 documented in this encounter Progress Notes * Miriam Fyre PA - 02/19/2020 8:30 AM CDT Images from the original note were not included. Subjective/Objective Patient ID: Madalyn Smith is a 44 y.o. female. Chief Complaint Rheumatoid Arthritis HPI Under a lot of stress. Her dad is on hospice for bone cancer. Her son had his 2nd seizure. Hands are hurting. Steroid inj at last visit helped for only 1 week. No se from imuran. Wants to stay on sq orencia, can't come in for infusions with all the demands on her rt now. No sob, cp, rashes, oral ornose ulcers. No infections. Review of Systems Constitutional: Negative for fatigue [...] factor (CMS/HCC) (Primary) Assessment & Plan: Mod ai Wants to go back to sq [facility], gave pt 1 mo of samples and will start approval. Can't come in for iv orencia, her dad is on hospice. Increase imuran to 100mg bid, check cbc/cmp in 2 weeks and f/u in 1month. Past serologies: [facility] panel 08/2019---labs reveal positive anti-PYROMETALLURGICAL ENGINEER antibody which is likely a false positive [...] Future - Erythrocyte sedimentation rate; Future - HEPATITIS PANEL, GENERAL; Future - Ambulatory referral order to Physical Therapy -; Future Encounter for long-term (current) use of [...] showed osteoporosis [facility] 08/2019---[facility] labs reveal positive anti-PYROMETALLURGICAL ENGINEER antibody which is likely a false positive due tonegative ASHLEY. ?? Orders: - Urinalysis reflex to microscopic and culture Urine, bladder; Future - Protein / creatinine ratio, urine, random; Future - Comprehensive metabolic panel; Future - CRP (acute phase); Future - CBC with auto differential; Future - Anti-double stranded DNA antibodies; Future - C4 complement; Future - C3 complement; Future - Erythrocyte sedimentation rate; Future - HEPATITIS PANEL, GENERAL; Future Primary osteoarthritis of both knees Assessment & Plan: Wants to start PT for bilat knee oa. Gave pt 2nd referral. Orders: - Ambulatory referral order to Physical Therapy -; Future Other orders - azaTHIOprine (IMURAN) 50 mg tablet; Take 2 tablets (100 mg total) by mouth 2 (two) times a day Cosigned by Cash Heath III, MD at 02/19/2020 3:44 PM CDT documented in this encounter Miscellaneous Notes * Result Encounter Note - Miriam Frye PA - 02/22/2020 3:26 PM CST She grew strep. Is she allx to pcn? If not tell her to not mixing picker tender cipro and we need to call in amoxil 500mg tid x 7d. ATIC CRITIC * Result Encounter Note - Miriam Frye PA - 02/22/2020 9:47 AM CST Had wbc and blood in urine. Culture is pending. If not allx to cipro call in 250mg bid x 7d. Recheck UA in 10d. Lots of water. If symptoms worsen (fever, chills, nausea, abd pain, hematuria, worsening dysuria) to ER. ATIC CRITIC * Assessment & Plan Note - Miriam Frye PA - 02/19/2020 11:36 AM CDTAssociated Problem(s): Primary osteoarthritis of both knees Wants to start PT for bilat knee oa. Gave pt 2nd referral. * Assessment & Plan Note - Miriam Frye PA - 02/19/2020 8:37 AM CDTAssociated Problem(s): Psoriatic arthritis (HCC) Mod cdai Wants to go back to sq su[facility], gave pt 1 mo of samples and will start approval. Can't come in for iv orencia, her dad is on hospice. Increase imuran to 100mg bid, check cbc/cmp in 2 weeks and f/u in 1month. Past serologies: [facility] panel 08/2019---labs reveal positive anti-PYROMETALLURGICAL ENGINEER antibody which is likely a false positive due tonegative ASHLEY. ?? RF neg but has a possible family hx of psoriatic arthritis (father) so if she develops psoriasis diagnosis will change to psoriatic arthritis. Rt hand US 09/2019 showed: ?? * Assessment & Plan Note - Miriam Frye PA - 02/19/2020 8:35 AM CDTAssociated Problem(s): Encounter for long-term (current) [...] showed osteoporosis [facility] 08/2019---[facility] labs reveal positive anti-PYROMETALLURGICAL ENGINEER antibody which is likely a false positive due tonegative ASHLEY. ?? documented in this encounter Plan of Treatment Scheduled Orders Name Type Priority Associated Diagnoses Orde r Schedule C4 complement Lab Routine Rheumatoid arthritis of multiple sites without rheumatoid factor (CMS/HCC) Encounter for long-term (current) use of medications Expected: 02/19/2020, Expires: 02/18/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 Lab Routine Rheumatoid arthritis of multiple sites without rheumatoid factor (CMS/HCC) Encounter for long-term (current) use of medications Expected: 02/19/2020, Expires: 02/18/2021 documented as of this encounter Procedures Procedure Name Priority Date/Time Associated Diagnosis Comments HEPATITIS PANEL, GENERAL Routine 02/19/2020 9:07 AM CDT Rheumatoid arthritis of multiple sites without rheumatoid factor (CMS/HCC) Encounter for long-term (current) use of medications ANTI-DOUBLE STRANDED DNA ANTIBODIES Routine 02/19/2020 9:07 AM CDT Rheumatoid arthritis of multiple sites without rheumatoid factor (CMS/HCC) Encounter for long-term (current) use of medications COMP C3C4 Routine 02/19/2020 9:07 AM CDT URINALYSIS AND REFLEX TO MICROSCOPIC AND CULTURE Routine 02/19/2020 9:07 AM CDT Rheumatoid arthritis of multiple sites without rheumatoid factor (CMS/HCC) Encounter for long-term (current) use of medications CBC WITH AUTO DIFFERENTIAL Routine 02/19/2020 9:07 AM CDT Rheumatoid arthritis of multiple sites without rheumatoid factor (CMS/HCC) Encounter for long-term (current) use of medications PROTEIN / CREATININE RATIO, URINE, RANDOM Routine 02/19/2020 9:07 AM CDT Rheumatoid arthritis of multiple sites without rheumatoid factor (CMS/HCC) Encounter for long-term (current) use of medications ERYTHROCYTE SEDIMENTATION RATE Routine 02/19/2020 9:07 AM CDT Rheumatoid arthritis of multiple sites without rheumatoid factor ([facility]/HCC) Encounter for long-term (current) use of medications CRP (ACUTE PHASE) Routine 02/19/2020 9:0 7 AM CDT Rheumatoid arthritis of multiple sites without rheumatoid factor ([facility]/HCC) Encounter for long-term (current) use of medications COMPREHENSIVE METABOLIC PANEL Routine 02/19/2020 9:07 AM CDT Rheumatoid arthritis of multiple sites without rheumatoid factor ([facility]/HCC) Encounter for long-term (current) use of medications documented in this encounter Results * COMP C3C4 (02/19/2020 9:07 AM CDT) Complement component C3C 159 83 - 193 mg/dL [facility] Complement component C4C 30 15 - 57 mg/dL [facility] 02/19/2020 9:07 AM CDT 02/19/2020 9:09 AM CDT us Miriam VALLE LAB BLOOD ORDERAB LES Final Result [facility] [address] [address] [address] * HEPATITIS PANEL, GENERAL (02/19/2020 9:07 AM CDT) Hep A total NON-REACTI VE NON-REACT SAL [facility] Comment: For additional information, please refer to http://[employer]/faq/OFK195 (This link is being provided for informational/ educational purposes only.) HBsAb (immune status) NON-REACTI VE NON-REACT SAL [facility] HepBsAg NON-REACTI VE NON-REACT SAL [facility] Hep B core IgG/IgM NON-REACTI VE NON-REACT SAL [facility] Hep C Ab NON-REACTI VE NON-REACT SAL [facility] SIGNAL TO CUT-OFF 0.01 <1.00 [facility] Comment: HCV antibody was non-reactive. There is no laboratory evidence of HCV infection. In most cases, no further action is required. However, if recent HCV exposure is suspected, a test for HCV RNA (test code 64479) is suggested. For additional information please refer to http://[employer]/faq/MYO64s6 (This link is being provided for informational/ educational purposes only.) Blood specimen (specimen) 02/19/2020 9:07 AM CDT 02/19/2020 9:09 AM CDT Miriam VALLE LAB BLOOD ORDERAB LES Final Result [facility] [address] [place] [address] * Erythrocyte sedimentation rate (02/19/2020 9:07 AM CDT) Erythrocyte sedimentation rate 5 < OR = 20 mm/h [facility] Blood specimen (specimen) 02/19/2020 9:07 AM CDT 02/19/2020 9:09 AM CDT Miriam VALLE LAB BLOOD ORDERAB LES Final Result Performing Organization Address [facility] Co de Phone Number [facility] [address] [place] [address] * Anti-double stranded DNA antibodies (02/19/2020 9:07 AM CDT) [facility] DNA (DS) ab <1 IU/mL [facility] Comment: ? IU/mL ? Interpretation ? < or = 4 ?Negative ? 5-9 ? Indeterminate ? > or = 10 ?? Positive Blood specimen (specimen) 02/19/2020 9:07 AM CDT 02/19/2020 9:09 AM CDT Miriam VALLE LAB BLOOD ORDERAB LES Final Result Performing Organization Address [facility] Co de Phone Number [facility] [address] [place] [address] * (ABNORMAL) CBC with auto differential (02/19/2020 9:07 AM CDT) [facility] WBC 9.8 3.8 - 10.8 Thousand/u L [facility] RBC, POC 4.86 3.80 - 5.10 Million/uL [facility] Hgb 14.0 11.7 - 15.5 g/dL [facility] Hct 43.7 35.0 - 45.0 % [facility] MCV 89.9 80.0 - 100.0 fL [facility] MCH 28.8 27.0 - 33.0 pg [facility] MCHC 32.0 32.0 - 36.0 g/dL [facility] Rdw 15.0 11.0 - 15.0 % [facility] Platelets 374 140 - 400 Thousand/u L [facility] MPV 9.4 7.5 - 12.5 fL [facility] Neutrophils, abs 8,016(H) 1,500 - 7,800 cells/uL [facility] Lymphocytes, abs 1,166 850 - 3,900 cells/uL [facility] Monocyte abs 500 200 - 950 cells/uL [facility] Eosinophils, abs 39 15 - 500 cells/uL [facility] Basophils, abs 78 0 - 200 cells/uL [facility] Neutrophils 81.8 % [facility] Lymphocyte pct 11.9 % [facility] Monocytes 5.1 % [facility] Eosinophils 0.4 % [facility] Basophils 0.8 % [facility] Blood specimen (specimen) 02/19/2020 9:07 AM CDT 02/19/2020 9:09 AM CDT Miriam VALLE LAB BLOOD ORDERAB LES Final Result [facility] [address] [place] [address] * CRP (acute phase) (02/19/2020 9:07 AM CDT) C-RP 2.6 <8.0 mg/L [facility] Blood specimen (specimen) 02/19/2020 9:07 AM CDT 02/19/2020 9:09 AM CDT Miriam VALLE LAB BLOOD ORDERAB LES Final Result [facility] [address] [address] [address] * Comprehensive metabolic panel (02/19/2020 9:07 AM CDT) Glucose 95 65 - 99 mg/dL [facility] Comment: ? Fasting reference interval BUN 17 7 - 25 mg/dL [facility] Creatinine 0.95 0.50 - 1.10 mg/dL [facility] eGFR NON-AFR. MONGOLIAN 72 > OR = 60 mL/min/1. 73m2 [facility] EGFR 84 > OR = 60 mL/min/1. 73m2 [facility] BUN/creat ratio NOT APPLICABLE 6 - 22 (calc) [facility] Sodium 137 135 - 146 mmol/L [facility] Potassium, pl 4.2 3.5 - 5.3 mmol/L [facility] Chloride 104 98 - 110 mmol/L [facility] CO2 22 20 - 32 mmol/L [facility] Calcium 9.1 8.6 - 10.2 mg/dL [facility] Protein, sr 6.7 6.1 - 8.1 g/dL [facility] Albumin 4.1 3.6 - 5.1 g/dL [facility] GLOBULIN 2.6 1.9 - 3.7 g/dL (calc) [facility] Alb/glob ratio 1.6 1.0 - 2.5 (calc) [facility] Bilirubin, total 0.2 0.2 - 1.2 mg/dL [facility] Alk phos 63 31 - 125 U/L [facility] AST 12 10 - 35 U/L [facility] ALT (SGPT) 13 6 - 29 U/L [facility] Blood specimen (specimen) 02/19/2020 9:07 AM CDT 02/19/2020 9:09 AM CDT us Miriam VALLE LAB BLOOD ORDERAB LES Final Result [facility] [address] [place] [address] * (ABNORMAL) Protein / creatinine ratio, urine, random (02/19/2020 9:07 AM CDT) Creatinine, ur 44 20 - 275 mg/dL [facility] Protein/creati nine ratio 227(H) 21 - 161 mg/g creat [facility] Protein/Creati nine Ratio 0.227(H) 0.021 - 0.161 mg/mg creat [facility] Protein, ur, quant 10 5 - 24 mg/dL [facility] Urine 02/19/2020 9:07 AM CDT 02/19/2020 9:09 AM CDT us Miriam VALLE LAB URINE ORDERAB LES Final Result [facility] [address] [place] [address] * (ABNORMAL) Urinalysis reflex to microscopic and culture Urine, bladder (02/19/2020 9:07 AM CDT) Color, ur YELLOW YELLOW [facility] Appearance, ur CLEAR CLEAR [facility] Specific gravity 1.010 1.001 - 1.035 [facility] pH, ur 6.5 5.0 - 8.0 [facility] Glucose, ur NEGATIVE NEGATIVE [facility] Bilirubin, ur NEGATIVE NEGATIVE [facility] Ketones, ur NEGATIVE NEGATIVE [facility] Blood, ur 1+(A) NEGATIVE [facility] Protein, ur, quant NEGATIVE NEGATIVE [facility] Nitrites, ur NEGATIVE NEGATIVE [facility] Leukocyte esterase, ur 1+(A) NEGATIVE [facility] WBC, ur 6-10(A) < OR = 5 /HPF [facility] RBC, ur 0-2 < OR = 2 /HPF [facility] Epithelial cells, squamous, ur 0-5 < OR = 5 /HPF [facility] Bacteria, ur, quant NONE SEEN NONE SEEN /HPF [facility] Hyaline cast NONE SEEN NONE SEEN /LPF [facility] Urine culture [facility] Comment:CULTURE INDICATED - RESULTS TO FOLLOW Urine culture (A) [facility] Comment: ??CULTURE, URINE, ROUTINE ?Micro Number: ?[id number] ??Test Status: ? Final ??Specimen Source: ?? URINE ??Specimen Quality: ??Adequate ??Result: ?Greater than 100,000 CFU/mL of ? Group B [...] appropriate screening and ? management of women. ??Result: ?Growth of mixed adelso was isolated, suggesting ? probable contamination. No further testing will ? be performed. If clinically indicated, ? recollection using a method to minimize ? contamination, with prompt transfer to Urine ? Culture Transport Tube, is recommended. Urine, bladder 02/19/2020 9: 07 AM CDT 02/19/2020 9:09 AM CDT us Miriam VALLE LAB MICROBIOLOGY - GENERAL ORDERABLES Final Result [facility] [address] [place] [address] documented in this encounter Visit Diagnoses Diagnosis Rheumatoid arthritis of multiple sites without rheumatoid factor ([facility]) ([facility])- Primary Encounter for long-term (current) use of medications Encounter for long-term (current) use of other medications Primary osteoarthritis of both knees documented in this encounter Discontinued Medications Medication Sig Discontinue Reason Start Date End Da te azaTHIOprine (IMURAN) 50 mg tablet Take 2 tablets by mouth in the morning and 1 tablet by mouth in the evening Reorder 12/23/2019 02/19/2020 documented as of this encounter Care Teams Relief Operator Relationship Specialty Start Date End Date Isaiah Quiros MD [address] [place] [address] PCP - General Internal Medicine 04/01/17 06/02/20 Isaiah Quiros MD [address] [facility] [address] [place] [address] Internal Medicine 02/18/17 03/19/21 Cash Heath III, MD [address] [place], [place] [id number] Rheumatology 04/12/17 Alex Mahajan MD [address] [place] [address] Referring Physician Internal Medicine 05/07/19 1 documented as of this encounter
--- OUTSIDE RECORDS SUMMARY | 2024-04-29 19:24 | XMS_ITS | Encounter Summary ---
Author Organization [facility] logy Address [address] [place] [id number] Phone Care Team Providers Care Dry Cleaning Checker Name Role Phone Isaiah Quiros MD Unavailable Isaiah Quiros MD Primary Care Provider [phone] Kumar CARRILLO MD, Sadie Howard Unavailable [phone] Alex Mahajan MD Unavailable [phone] Reason for Referral * Diagnostic Imaging (Routine) - Closed Specialty Diagnoses / Procedures Referred By Kaylynn phillips Referred To Contact Diagnoses Chronic pain of both knees Procedures XR Knee Left 3 Views Miriam García PA [address] [place] [address] Phone: tel: fax: External Order Referral ID Status Reason Start Date Expiration Date Visits Re quested Visits Authorized [id number] Closed 01/07/2020 02/05/2021 1 1 * Diagnostic Imaging (Routine) - Closed Specialty Diagnoses / Procedures Referred By Kaylynn phillips Referred To Contact Diagnoses Chronic pain of both knees Procedures XR Knee Right 3 Views Miriam García PA [address] [place] [address] Phone: tel: fax: External Order Referral ID Status Reason Start Date Expiration Date Visits Re quested Visits Authorized [id number] Closed 01/07/2020 02/05/2021 1 1 * Diagnostic Imaging (Routine) - Closed Specialty Diagnoses / Procedures Referred By Contac t Referred To Contact Diagnoses Dorsalgia Hip pain Procedures XR Hip Right 2 or 3 Views Miriam García PA [address] [place] [address] Phone: tel: fax: External Order Referral ID Status Reason Start Date Expiration Date Visits Re quested Visits Authorized [id number] Closed 01/07/2020 02/05/2021 1 1 * Diagnostic Imaging (Routine) - Closed Specialty Diagnoses / Procedures Referred By Contac t Referred To Contact Diagnoses Dorsalgia Hip pain Procedures XR Hip Left 2 or 3 Views Miriam García PA [address] [place] [address] Phone: tel: fax: External Order Referral ID Status Reason Start Date Expiration Date Visits Re quested Visits Authorized [id number] Closed 01/07/2020 02/05/2021 1 1 * Diagnostic Imaging (Routine) - Closed Specialty Diagnoses / Procedures Referred By Contac t Referred To Contact Diagnoses Dorsalgia Procedures XR Spine Lumbar 2 or 3 Views Miriam García PA [address] [place] [address] Phone: tel: fax: External Order Referral ID Status Reason Start Date Expiration Date Visits Re quested Visits Authorized [id number] Closed 01/07/2020 02/05/2021 1 1 * Diagnostic Imaging (Routine) - Closed Specialty Diagnoses / Procedures Referred By Contac t Referred To Contact Diagnoses Chronic pain of both ankles Procedures XR Ankle Left 2 Views Miriam García PA [address] [place] [address] Phone: tel: fax: External Order Referral ID Status Reason Start Date Expiration Date Visits Re quested Visits Authorized [id number] Closed 01/07/2020 02/05/2021 1 1 * Diagnostic Imaging (Routine) - Closed Specialty Diagnoses / Procedures Referred By Kaylynn t Referred To Contact Diagnoses Chronic pain of both ankles Procedures XR Ankle Right 2 Views Miriam García PA [address] [place] [address] Phone: tel: fax: External Order Referral ID Status Reason Start Date Expiration Date Visits Re quested Visits Authorized [id number] Closed 01/07/2020 02/05/2021 1 1 * Diagnostic Imaging (Routine) - Closed Specialty Diagnoses / Procedures Referred By Contac t Referred To Contact Diagnoses Dorsalgia Hip pain Procedures XR Sacroiliac Joints 3 or More Views Miriam García PA [address] [place] [address] Phone: tel: fax: External Order Referral ID Status Reason Start Date Expiration Date Visits Re quested Visits Authorized [id number] Closed 01/07/2020 02/05/2021 1 1 Encounter Details Date Type Department Care Team (Late st Contact Info) Description 01/07/2020 3:15 PM CDT Office Visit [facility] [address] [place] [phone] Miriam García PA [address] [place] [address] Rheumatoid arthritis of multiple sites without rheumatoid factor (CMS/HCC) (Primary Dx); Encounter for long-term (current) use of medications; Meredith-Danlos disease; Osteoporosis without current pathological fracture; Frequent infections; Dorsalgia; Chronic pain of both ankles; Hip pain; Chronic pain of both knees Social History Tobacco Use Types Packs/Day Years Used Date Smoking Tobacco: Never Alcohol Use Standard Drinks/Week Comments No 0 (1 standard drink = 0.6 oz pur e alcohol) Comments No Sex and Gender Information Value Date Recorded Sex Assigned at Not on file 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 ?? There [...] may report side effects to FDA at 6-531-WBW-5869 ?? 2017 [employer] Information is for End User's use only and may not be sold, redistributed or otherwise used for commercial purposes. The above information is an individualized education plan aide only. It is not intended as medical advice for individual conditions or treatments. Talk to your doctor, nurse or pharmacist before following any medical regimen to see if it is safe and effective for you. documented in this encounter Progress Notes * Miriam García PA - 01/07/2020 3:15 PM CDT Images from the original note were not included. Subjective/Objective Patient ID: Madalyn Smith is a 44 y.o. female. Chief Complaint Joint pain HPI Flaring up in past month. Her knees, ankles back, si joints, wrists and hands are painful. Knees, hands and ankles swell up. No injury. Taking orencia but feels that it is not working as well as iv orencia and wants to go back to iv orencia. Taking imuran. No sob, cp, rashes, oral or nose ulcers. Review of Systems Constitutional: Negative for fatigue [...] and breath sounds normal. Musculoskeletal: see cdai. Had pain with bilat hip rom but full rom. Tender on ext palpation of bilat hips, lt is worse. bilat knee with crepitus, lt knee old surgery scar. Tender on palpation of si joints bilat. Ankles swollen and tender. Lymphadenopathy: No lymphadenopathy. Neurological: Alert and oriented x 3. Skin: Skin is warm and dry. Psychiatric: Normal mood. Vitals reviewed. CDAI: 33 Labs Lab Results Component Value Date WBC [...] arthritis of multiple sites without rheumatoid factor ([facility]) (Primary) Assessment & Plan: High cdai. Due to burden of dz will give her 100mg of triamcinolone IM today, discussed risks and se of systemic steroids, she is to watch carbs in t(denies hx of dm2) and take ca + vit d 1200mg po every day. [facility] panel 08/2019---labs reveal positive anti-CRAB BUTCHER antibody which is likely a false positive due tonegative ASHLEY. ??Otherwise labs look good. ??No evidence of a new autoimmune connective tissue disease. Cont orencia sq and imuran 100mg po qhs. Success better on iv orencia, will change from [...] Future - Erythrocyte sedimentation rate; Future - TB test, quantiferon gold; Future - triamcinolone (KENALOG) 40 mg/mL injection 100 mg Encounter for long-term (current) use of medications Assessment & Plan: Quant gold neg 10/2018. TPMT nl 17 Weight loss with imuran, stopped it 01/2017 Mtx stopped due to side effects 2017 Failed humira Plaquenil failure Imuran caused weight loss 2016, TPMT wnl at 17 in 2017 Hep B and C neg 2015 Failed Enbrel and humira TPMT wnl 06/2016 BDS done by pcp 2018 and it showed osteoporosis [facility] 08/2019---[facility] labs reveal positive anti-CRAB BUTCHER antibody which is likely a false positive due tonegative ASHLEY. ?? Orders: - CBC with auto differential; Future - Comprehensive metabolic panel; Future - CRP (acute phase); Future - Erythrocyte sedimentation rate; Future - TB test, quantiferon gold; Future Meredith-Danlos disease Assessment & Plan: Was advised in past to get chest CT to r/o aortic aneurysm, to discuss with pcp. Osteoporosis without current pathological fracture Assessment & Plan: bds checked by pcp in past, is taking ca and vit d and pcp checked vit D and PTH per pt was wnl. Her pcp started her on alendronate 70mg po qweek. Taking ca + vit d 1200mg qd. Frequent infections Assessment & Plan: Normal serum immunoglobulins. Dorsalgia - XR Sacroiliac Joints 3 or More Views; Future - XR Spine Lumbar 2 or 3 Views; Future - XR Hip Left 2 or 3 Views; Future - XR Hip Right 2 or 3 Views; Future - HLA-B27 antigen; Future Chronic pain of both ankles - XR Ankle Right 2 Views; Future - XR Ankle Left 2 Views; Future Hip pain - XR Sacroiliac Joints 3 or More Views; Future - XR Hip Left 2 or 3 Views; Future - XR Hip Right 2 or 3 Views; Future - Ambulatory referral order to Physical Therapy -; Future Chronic pain of both knees - XR Knee Right 3 Views; Future - XR Knee Left 3 Views; Future Other orders - HLA-B27 antigen documented in this encounter Miscellaneous Notes * Addendum Note - Sadie Heath III, MD - 01/07/2020 3:15 PM CDTAddended by: SADIE HEATH on: 01/07/2020 04:10 PM Modules accepted: Orders * Addendum Note - Miriam García PA - 01/07/2020 3:15 PM CDT Addended by: MIRIAM GARCÍA on: 01/18/2020 02:50 PM Modules accepted: Orders * Assessment & Plan Note - Miriam García PA - 01/07/2020 12:31 PM CDTAssociated Problem(s): Frequent infections Normal serum immunoglobulins. * Assessment & Plan Note - Miriam García PA - 01/07/2020 12:30 PM CDTAssociated Problem(s): Osteoporosis without current pathological fracture bds checked by pcp in past, is taking ca and vit d and pcp checked vit D and PTH per pt was wnl. Her pcp started her on alendronate 70mg po qweek. Taking ca + vit d 1200mg qd. * Assessment & Plan Note - Miriam García PA - 01/07/2020 12:29 PM CDTAssociated Problem(s): Meredith-Danlos disease Was advised in past to get chest CT to r/o aortic aneurysm, to discuss with pcp. * Assessment & Plan Note - Miriam García PA - 01/07/2020 12:29 PM CDTAssociated Problem(s): Psoriatic arthritis (HCC) Images from the original note were not included. High cdai. Due to burden of dz will give her 100mg of triamcinolone IM today, discussed risks and se of systemic steroids, she is to watch carbs in t(denies hx of dm2) and take ca + vit d 1200mg po every day. [facility] panel 08/2019---labs reveal positive anti-CRAB BUTCHER antibody which is likely a false positive due tonegative ASHLEY. ??Otherwise labs look good. ??No evidence of a new autoimmune connective tissue disease. Cont orencia sq and imuran 100mg po qhs. Success better on iv orencia, will change from sq to iv orencia if approved by insurance. RF neg but has a possible family hx of psoriatic arthritis (father) so if she develops psoriasis diagnosis will change to psoriatic arthritis. Rt hand US 09/2019 showed: ?? * Assessment & Plan Note - Miriam García PA - 01/07/2020 12:28 PM CDTAssociated Problem(s): Encounter for long-term (current) [...] showed osteoporosis [facility] 08/2019---[facility] labs reveal positive anti-CRAB BUTCHER antibody which is likely a false positive due tonegative ASHLEY. ?? documented in this encounter Plan of Treatment Scheduled Orders Name Type Priority Associated Diagnoses Orde r Schedule XR Sacroiliac Joints 3 or More Views Imaging Schedule Routine, Read Routine (OP Routine) Dorsalgia Hip pain Expected: 01/07/2020, Expires: 01/06/2021 XR Ankle Right 2 Views Imaging Schedule Routine, Read Routine (OP Routine) Chronic pain of both ankles Expected: 01/07/2020, Expires: 01/06/2021 XR Ankle Left 2 Views Imaging Schedule R outine, Read Routine (OP Routine) Chronic pain of both ankles Expected: 01/07/2020, Expires: 01/06/2021 XR Spine Lumbar 2 or 3 Views Imaging Schedule Routine, Read Routine (OP Routine) Dorsalgia Expected: 01/07/2020, Expires: 01/06/2021 XR Hip Left 2 or 3 Views Imaging Schedule Routine, Read Routine (OP Routine) Dorsalgia Hip pain Expected: 01/07/2020, Expires: 01/06/2021 XR Hip Right 2 or 3 Views Imaging Schedule Routine, Read Routine (OP Routine) Dorsalgia Hip pain Expected: 01/07/2020, Expires: 01/06/2021 HLA-B27 antigen Lab Routine Dorsalgia Expected: 01/07/2020, Expires: 01/06/2021 XR Knee Right 3 Views Imaging Schedule R outine, Read Routine (OP Routine) Chronic pain of both knees Expected: 01/07/2020, Expires: 01/06/2021 XR Knee Left 3 Views Imaging Schedule Ro utine, Read Routine (OP Routine) Chronic pain of both knees Expected: 01/07/2020, Expires: 01/06/2021 documented as of this encounter Procedures Procedure Name Priority Date/Time Associated Diagnosis Comments TB TEST, QUANTIFERON GOLD Routine 01/07/2020 4:18 PM CDT Rheumatoid arthritis of multiple sites without rheumatoid factor ([facility]) Encounter for long-term (current) use of medications CBC WITH AUTO DIFFERENTIAL Routine 01/07/2020 4:18 PM CDT Rheumatoid arthritis of multiple sites without rheumatoid factor (CMS/[facility]) Encounter for long-term (current) use of medications HLA-B27 ANTIGEN Routine 01/07/2020 4:18 PM CDT ERYTHROCYTE SEDIMENTATION RATE Routine 01/07/2020 4:18 PM CDT Rheumatoid arthritis of multiple sites without rheumatoid factor (CMS/[facility]) Encounter for long-term (current) use of medications CRP (ACUTE PHASE) Routine 01/07/2020 4:1 8 PM CDT Rheumatoid arthritis of multiple sites without rheumatoid factor (CMS/HCC) Encounter for long-term (current) use of medications COMPREHENSIVE METABOLIC PANEL Routine 01/07/2020 4:18 PM CDT Rheumatoid arthritis of multiple sites without rheumatoid factor (CMS/HCC) Encounter for long-term (current) use of medications documented in this encounter Results * HLA-B27 antigen (01/07/2020 4:18 PM CDT) HLA-B27 ag NEGATIVE NEGATIVE [facility], 01/07/2020 4:18 PM CDT 01/07/2020 4:19 PM CDT Miriam VALLE LAB BLOOD ORDERAB LES Final Result [facility], [address] [place] [address] * TB test, quantiferon gold (01/07/2020 4:18 PM CDT) QuantiFERON(R)-T B Gold Plus, 1 Tube NEGATIVE NEGATIVE [facility] Comment: Negative test result. M. tuberculosis complex infection unlikely. NIL 0.03 IU/mL [facility] MITOGEN-NIL 8.07 IU/mL [facility] TB1-NIL <0.00 IU/mL [facility] TB2-NIL <0.00 IU/mL [facility] Comment: The Nil tube value reflects the [...] T-lymphocytes. For additional information, please refer to https://education.[employer]ia/faq/HAC859 (This link is being provided for informational/ educational purposes only.) Blood specimen (specimen) 01/07/2020 4:18 PM CDT 01/07/2020 4:19 PM CDT Miriam VALLE LAB BLOOD ORDERAB LES Final Result Performing Organization Address [facility] Co de Phone Number [facility] [address] [place] [address] * Erythrocyte sedimentation rate (01/07/2020 4:18 PM CDT) Erythrocyte sedimentation rate 14 < OR = 20 mm/h [facility] Blood specimen (specimen) 01/07/2020 4:18 PM CDT 01/07/2020 4:19 PM CDT Miriam VALLE LAB BLOOD ORDERAB LES Final Result Performing Organization Address [facility] de Phone Number [facility] [address] [place] [address] * (ABNORMAL) CRP (acute phase) (01/07/2020 4:18 PM CDT) C-RP 10.7(H) <8.0 mg/L [facility] Blood specimen (specimen) 01/07/2020 4:18 PM CDT 01/07/2020 4:19 PM CDT Miriam VALLE LAB BLOOD ORDERAB LES Final Result Performing Organization Address [facility] Co de Phone Number [facility] [address] [place] [phone] * (ABNORMAL) Comprehensive metabolic panel (01/07/2020 4:18 PM CDT) Glucose 100(H) 65 - 99 mg/dL [facility] Comment: ? Fasting reference interval For someone without known diabetes, a glucose value between 100 and 125 mg/dL is consistent with prediabetes and should be confirmed with a follow-up test. BUN 15 7 - 25 mg/dL [facility] Creatinine 1.04 0.50 - 1.10 mg/dL [facility] eGFR NON-AFR. GERMAN 65 > OR = 60 mL/min/1. 73m2 [facility] EGFR 75 > OR = 60 mL/min/1. 73m2 [facility] BUN/creat ratio NOT APPLICABLE 6 - 22 (calc) [facility] Sodium 138 135 - 146 mmol/L [facility] Potassium, pl 4.4 3.5 - 5.3 mmol/L [facility] Chloride 106 98 - 110 mmol/L [facility] CO2 19(L) 20 - 32 mmol/L [facility] Calcium 8.8 8.6 - 10.2 mg/dL [facility] Protein, sr 6.5 6.1 - 8.1 g/dL [facility] Albumin 4.1 3.6 - 5.1 g/dL [facility] GLOBULIN 2.4 1.9 - 3.7 g/dL (calc) [facility] Alb/glob ratio 1.7 1.0 - 2.5 (calc) [facility] Bilirubin, total 0.3 0.2 - 1.2 mg/dL [facility] Alk phos 70 31 - 125 U/L [facility] AST 13 10 - 35 U/L [facility] ALT (SGPT) 17 6 - 29 U/L [facility] Blood specimen (specimen) 01/07/2020 4:18 PM CDT 01/07/2020 4:19 PM CDT us Miriam VALLE LAB BLOOD ORDERAB LES Final Result [facility] [address] [place] [phone] * CBC with auto differential (01/07/2020 4:18 PM CDT) WBC 8.6 3.8 - 10.8 Thousand/u L [facility] RBC, POC 4.74 3.80 - 5.10 Million/uL [facility] Hgb 13.3 11.7 - 15.5 g/dL [facility] Hct 41.3 35.0 - 45.0 % [facility] MCV 87.1 80.0 - 100.0 fL [facility] MCH 28.1 27.0 - 33.0 pg [facility] MCHC 32.2 32.0 - 36.0 g/dL [facility] Rdw 14.0 11.0 - 15.0 % [facility] Platelets 386 140 - 400 Thousand/u L [facility] MPV 9.9 7.5 - 12.5 fL [facility] Neutrophils, abs 5,968 1,500 - 7,800 cells/uL [facility] Lymphocytes, abs 1,772 850 - 3,900 cells/uL [facility] Monocyte abs 671 200 - 950 cells/uL [facility] Eosinophils, abs 103 15 - 500 cells/uL [facility] Basophils, abs 86 0 - 200 cells/uL [facility] Neutrophils 69.4 % [facility] Lymphocyte pct 20.6 % [facility] Monocytes 7.8 % [facility] Eosinophils 1.2 % [facility] Basophils 1.0 % [facility] Blood specimen (specimen) 01/07/2020 4:18 PM CDT 01/07/2020 4:19 PM CDT Miriam VALLE LAB BLOOD ORDERAB LES Final Result [facility] [address] [place] [phone] documented in this encounter Visit Diagnoses Diagnosis Rheumatoid arthritis of multiple sites without rheumatoid factor (CMS/HCC) (HCC)- Primary Encounter for long-term (current) use of medications Encounter for long-term (current) use of other medications Meredith-Danlos disease Meredith-Danlos syndrome Osteoporosis without current pathological fracture Frequent infections Dorsalgia Pain in thoracic spine Chronic pain of both ankles Hip pain Pain in joint, pelvic region and thigh Chronic pain of both knees documented in this encounter Administered Medications Inactive Administered Medications - up to 3 most recent administrations Medication Order MAR Action Action Date Dose Rate Site triamcinolone (KENALOG) 40 mg/mL injection 100 mg 100 mg, intramuscular, Once, On Leydi 01/07/20 at 1645, For 1 doseIndications:Rheumatoi d arthritis of multiple sites without rheumatoid factor (CMS/HCC) ([facility]) Given 01/07/2020 4:16 PM CDT 100 mg Other (Comment) documented in this encounter Discontinued Medications Medication Sig Discontinue Reason Start Date End Da te abatacept (ORENCIA) 250 mg injection Duplicate order 01/18/2020 documented as of this encounter Care Teams Dry Cleaning Checker Relationship Specialty Start Date End Date Isaiah Quiros MD [address] [place] [address] PCP - General Internal Medicine 04/01/17 06/02/20 Isaiah Quiros MD [address] [place] [address] Internal Medicine 02/18/17 03/19/21 Sadie Heath III, MD [address] [place] [address] Rheumatology 04/12/17 Alex Mahajan MD [address] [place] [address] Referring Physician Internal Medicine 05/07/19 1 documented as of this encounter
--- OUTSIDE RECORDS SUMMARY | 2024-04-29 19:24 | XMS_ITS | Encounter Summary ---
Author Organization [facility] Address [address] [place] [address] Phone Care Team Providers Care Crime Lab Analyst Name Role Phone Isaiah Quiros MD Unavailable Isaiah Quiros MD Primary Care Provider [phone] Kumar CARRILLO MD, Cash Howard Unavailable Alex Mahajan MD Unavailable Encounter Details Date Type Department Care Team (Late st Contact Info) Description 07/13/2019 Telephone [facility] [address] [place] [address] Miriam Frye PA [address] [place] [address] Social History Tobacco Use Types Packs/Day Years Used Date Smoking Tobacco: Never Alcohol Use Standard Drinks/Week Comments No 0 (1 standard drink = 0.6 oz pur e alcohol) Comments No Sex and Gender Information Value Date Recorded Sex Assigned at Not on file 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 No / Unsure 07/09/2019 8:45 AM CDT documented as of this encounter Miscellaneous Notes * Telephone Encounter - Tiara Rainey - 07/14/2019 11:08 AM CDT Spoke w/pt re: results & instructions. Results sent to pcp. * Telephone Encounter - Miriam Frye PA - 07/13/2019 4:06 PM CDT Mild anemia, address with pcp. plts elevated, most likely due to inflammation. documented in this encounter Plan of Treatment Not on file documented as of this encounter Visit Diagnoses Not on filedocumented in this encounter Care Teams Crime Lab Analyst Relationship Specialty Start Date End Date Isaiah Quiros MD [address] [place] [address] PCP - General Internal Medicine 04/01/17 06/02/20 Isaiah Quiros MD [address] [place] [address] Internal Medicine 02/18/17 03/19/21 Cash Heath III, MD [address] [place] [address] Rheumatology 04/12/17 Alex Mahajan MD [address] [place] [address] Referring Physician Internal Medicine 05/07/19 1 documented as of this encounter
--- OUTSIDE RECORDS SUMMARY | 2024-04-29 19:24 | XMS_ITS | Encounter Summary ---
Author Organization [facility] Facility Care Team Providers Care Career Development Counselor Name Role Phone Isaiah Quiros MD Unavailable Isaiah Quiros MD Primary Care Provider [phone] Kumar CARRILLO MD, Cash Howard Unavailable [phone] Encounter Details Date Type Department Care Team (Latest Contact Info) Description 11/24/2018 Travel Social History Tobacco Use Types Packs/Day Years Used Date Smoking Tobacco: Never Alcohol Use Standard Drinks/Week Comments No 0 (1 standard drink = 0.6 oz pur e alcohol) Comments No Sex and Gender Information Value Date Recorded Sex Assigned at Not on file Legal Sex Female 9:[address]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 Gender Identity Female 08/14/2022 11:32 AM CDT Sexual Orientation Straight 02/13/2023 7: 01 AM CDT documented as of this encounter Plan of Treatment Not on file documented as of this encounter Visit Diagnoses Not on filedocumented in this encounter Care Teams Career Development Counselor Relationship Specialty Start Date End Date Isaiah Quiros MD [address] [place] [address] PCP - General Internal Medicine 04/01/17 06/02/20 Isaiah Quiros MD [address] [place] [address] Internal Medicine 02/18/17 03/19/21 Cash Heath III, MD [address] [address] Rheumatology 04/12/17 documented as of this encounter
--- OUTSIDE RECORDS SUMMARY | 2024-04-29 19:24 | XMS_ITS | Encounter Summary ---
Author Organization [facility] Address [address] [place] [address] Phone Care Team Providers Care Straight Line Press Setter Name Role Phone Isaiah Quiros MD Unavailable Isaiah Quiros MD Primary Care Provider [phone] Kumar CARRILLO MD, Cash Howard Unavailable [phone] Alex Mahajan MD Unavailable [phone] Encounter Details Date Type Department Care Team (Late st Contact Info) Description 01/18/2020 Telephone [facility] [address] [place] [id number] Tiara Rainey Social History Tobacco Use Types Packs/Day Years Used Date Smoking Tobacco: Never Alcohol Use Standard Drinks/Week Comments No 0 (1 standard drink = 0.6 oz pur e alcohol) Comments No Sex and Gender Information Value Date Recorded Sex Assigned at Not on file Legal Sex Female 9:24 PM ACCOUNT MANAGER RELIEF Gender Identity Female 08/14/2022 11:32 AM CDT Sexual Orientation Straight 02/13/2023 7: 01 AM CDT documented as of this encounter Miscellaneous Notes * Telephone Encounter - Tiara Rainey - 01/20/2020 3:51 PM CDT Left vm for pt & asked her to call back if she wants to try the steroids. She is aware the PA is still pending. * Telephone Encounter - Miriam Frye PA - 01/20/2020 12:10 PM CDT All we can offer her short term is steroids, we can do a low dose course. Let her know about her ivorencia. * Telephone Encounter - Ghazala Westbrook - 01/19/2020 8:26 AM CDT Approval still pending. * Telephone Encounter - Miriam Frye PA - 01/18/2020 2:50 PM CDT We were going to change from sq orencia to iv orencia, is is approved? * Telephone Encounter - Tiara Rainey - 01/18/2020 2:26 PM CDT Pt reports the steroid injection wore off about 7 - 10 days after she received it. Wants to know ifstress could cause flare. Her Dad is dying & she is very stressed about it. Is there anything she can do for relief. Doesn't want to do steroids since she has osteoporosis. documented in this encounter Plan of Treatment Not on file documented as of this encounter Visit Diagnoses Not on filedocumented in this encounter Care Teams Straight Line Press Setter Relationship Specialty Start Date End Date Isaiah Quiros MD [address] [place], [place] [id number] PCP - General Internal Medicine 04/01/17 06/02/20 Isaiah Quiros MD [address] [place] [address] Internal Medicine 02/18/17 03/19/21 Cash Heath III, MD [address] [place] [address] Rheumatology 04/12/17 Alex Mahajan MD [address] [place] [address] Referring Physician Internal Medicine 05/07/19 1 documented as of this encounter
--- OUTSIDE RECORDS SUMMARY | 2024-04-29 19:24 | XMS_ITS | Encounter Summary ---
Author Organization [facility] Address [address] [place] [address] Phone Care Team Providers Care Supervisor Hot Dip Plating Name Role Phone Isaiah Quiros MD Unavailable Isaiah Quiros MD Primary Care Provider [phone] Kumar CARRILLO MD, Cash Howard Unavailable [phone] Encounter Details Date Type Department Care Team (Late st Contact Info) Description 09/08/[address] [address] Tiara Rainey Social History Tobacco Use Types Packs/Day Years Used Date Smoking Tobacco: Never Alcohol Use Standard Drinks/Week Comments No 0 (1 standard drink = 0.6 oz pur e alcohol) Comments No Sex and Gender Information Value Date Recorded Sex Assigned at Not on file Legal Sex Female 9:24 PM 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 The order is in the system. * Telephone Encounter - Miriam Frye PA - 09/08/2018 4:40 PM CDT She was supposed to get cbc/cmp 2 weeks after starting imuran and f/u in 1 month. * Telephone Encounter - Tiara Rainey - 09/08/2018 3:54 PM CDT Pt wants to know when she is due for labs again. documented in this encounter Plan of Treatment Not on file documented as of this encounter Visit Diagnoses Not on filedocumented in this encounter Care Teams Supervisor Hot Dip Plating Relationship Specialty Start Date End Date Isaiah Quiros MD [address] [place] [address] PCP - General Internal Medicine 04/01/17 06/02/20 Isaiah Quiros MD [address] [place] [address] Internal Medicine 02/18/17 03/19/21 Cash Heath III, MD [address] [facility] [address] [place] [address] Rheumatology 04/12/17 documented as of this encounter
--- OUTSIDE RECORDS SUMMARY | 2024-04-29 19:24 | XMS_ITS | Encounter Summary ---
Author Organization [facility] Facility Care Team Providers Care Chief Procurement Officer Name Role Phone Isaiah Quiros MD Unavailable Isaiah Quiros MD Primary Care Provider [phone] Kumar CARRILLO MD, Cash Howard Unavailable [phone] Encounter Details Date Type Department Care Team (Latest Contact Info) Description 10/13/2018 Travel Social History Tobacco Use Types Packs/Day Years Used Date Smoking Tobacco: Never Alcohol Use Standard Drinks/Week Comments No 0 (1 standard drink = 0.6 oz pur e alcohol) Comments No Sex and Gender Information Value Date Recorded Sex Assigned at Not on file Legal Sex Female 9:24 PM EVALUATION ADVISOR Gender Identity Female 08/14/2022 11:32 AM CDT Sexual Orientation Straight 02/13/2023 7: 01 AM CDT documented as of this encounter Plan of Treatment Not on file documented as of this encounter Visit Diagnoses Not on filedocumented in this encounter Care Teams Chief Procurement Officer Relationship Specialty Start Date End Date Isaiah Quiros MD [address] [place] [address] PCP - General Internal Medicine 04/01/17 06/02/20 Isaiah Quiros MD [address] [place] [address] Internal Medicine 02/18/17 03/19/21 Cash Heath III, MD [address] [address] Rheumatology 04/12/17 documented as of this encounter
--- OUTSIDE RECORDS SUMMARY | 2024-04-29 19:24 | XMS_ITS | Encounter Summary ---
Author Organization [facility] Address [address] [place] [address] Phone Care Team Providers Care Braille Coder Name Role Phone Isaiah Quiros MD Unavailable Isaiah Quiros MD Primary Care Provider [phone] Kumar CARRILLO MD, Cash Howard Unavailable [phone] Encounter Details Date Type Department Care Team (Late st Contact Info) Description 10/27/2018 Telephone [place] [id number] [address] Tiara Rainey Social History Tobacco Use Types Packs/Day Years Used Date Smoking Tobacco: Never Alcohol Use Standard Drinks/Week Comments No 0 (1 standard drink = 0.6 oz pur e alcohol) Comments No Sex and Gender Information Value Date Recorded Sex Assigned at Not on file Legal Sex Female 9:24 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 * Telephone Encounter - Owen Puckett MD - 10/27/2018 12:35 PM CDT Ok to refill. * Telephone Encounter - Tiara Rainey - 10/27/2018 11:30 AM CDT Pt here for her infusion & wants refill of the Zofran. Last filled in Apr. She said she uses itbecause the AZA makes her nauseated. Ok to refill? documented in this encounter Plan of Treatment Not on file documented as of this encounter Visit Diagnoses Not on filedocumented in this encounter Discontinued Medications Medication Sig Discontinue Reason Start Date End Da te ondansetron ODT (ZOFRAN-ODT) 8 mg disintegrating tablet DISSOLVE ONE TABLET ON TONGUE EVERY 8 HOURS X 2 DAYS DIRECTED Reorder 04/23/2018 10/27/2018 documented as of this encounter Care Teams Braille Coder Relationship Specialty Start Date End Date Isaiah Quiros MD [address] [place] [address] PCP - General Internal Medicine 04/01/17 06/02/20 Isaiah Quiros MD [address] [place] [address] Internal Medicine 02/18/17 03/19/21 Cash Heath III, MD [address] [facility] [address] [place] [address] Rheumatology 04/12/17 documented as of this encounter
--- OUTSIDE RECORDS SUMMARY | 2024-04-29 19:24 | XMS_ITS | Encounter Summary ---
Author Organization [facility] Address [address] [place] [address] Phone Care Team Providers Care Bulb Weeder Name Role Phone Isaiah Quiros MD Unavailable Isaiah Quiros MD Primary Care Provider [phone] Kumar CARRILLO MD, Cash Howard Unavailable [phone] Alex Mahajan MD Unavailable [phone] Encounter Details Date Type Department Care Team (Late st Contact Info) Description 07/09/2019 Telephone [facility] [address] [place] [address] Miriam Frye PA [address] [place] [address] Social History Tobacco Use Types Packs/Day Years Used Date Smoking Tobacco: Never Alcohol Use Standard Drinks/Week Comments No 0 (1 standard drink = 0.6 oz pur e alcohol) Comments No Sex and Gender Information Value Date Recorded Sex Assigned at Not on file Legal Sex Female 9:24 PM CHIEF SPECIALIST LEED Gender Identity Female 08/14/2022 11:32 AM CDT [...] hours as needed for pain 90 tablet 07/09/2019 09/10/2019 documented in this encounter Miscellaneous Notes * Addendum Note - Mick Can - 07/09/2019 3:39 PM CDTAddended by: MICK CAN on: 07/09/2019 03:39 PM Modules accepted: Orders * Telephone Encounter - Mick Can - 07/09/2019 3:38 PM CDT Tramadol called & charted. * Telephone Encounter - Cash Woodruff III, MD - 07/09/2019 3:16 PM CDT Ok to refill tramadol. * Telephone Encounter - Mick Can - 07/09/2019 10:09 AM CDT Papework for Orencia SQ PA started. Holding for BB to complete OV note. JJB ok to refill Tramadol as per BB's order? * Telephone Encounter - Miriam Frye PA - 07/09/2019 9:53 AM CDT Change to sq orencia so she does not have to come here. [place]. Please give her tramadol 50mg tid prn for pain. Clear this with dr woodruff. documented in this encounter Plan of Treatment Not on file documented as of this encounter Visit Diagnoses Not on filedocumented in this encounter Discontinued Medications Medication Sig Discontinue Reason Start Date End Da te traMADol (ULTRAM) 50 mg tablet Take 1 tablet (50 mg total) by mouth every 8 (eight) hours as needed for pain Reorder 04/23/2019 07/09/2019 documented as of this encounter Care Teams Bulb Weeder Relationship Specialty Start Date End Date Isaiah Quiros MD [address] [place] [address] PCP - General Internal Medicine 04/01/17 06/02/20 Isaiah Quiros MD [address] [place] [address] Internal Medicine 02/18/17 03/19/21 Cash Woodruff III, MD [address] [place] [address] Rheumatology 04/12/17 Alex Mahajan MD [address] [place] [address] Referring Physician Internal Medicine 05/07/19 1 documented as of this encounter
--- OUTSIDE RECORDS SUMMARY | 2024-04-29 19:24 | XMS_ITS | Encounter Summary ---
Author Organization [facility] Facility Care Team Providers Care Glass Processing Worker Name Role Phone Isaiah Quiros MD Unavailable Isaiah Quiros MD Primary Care Provider [phone] Kumar CARRILLO MD, Cash Howard Unavailable [phone] Encounter Details Date Type Department Care Team (Latest Contact Info) Description 09/18/2018 Travel Social History Tobacco Use Types Packs/Day Years Used Date Smoking Tobacco: Never Alcohol Use Standard Drinks/Week Comments No 0 (1 standard drink = 0.6 oz pur e alcohol) Comments No Sex and Gender Information Value Date Recorded Sex Assigned at Not on file Legal Sex Female 9:24 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 EXECUTIVE DIRECTOR Gender Identity Female 08/14/2022 11:32 AM CDT Sexual Orientation Straight 02/13/2023 7: 01 AM CDT documented as of this encounter Plan of Treatment Not on file documented as of this encounter Visit Diagnoses Not on filedocumented in this encounter Care Teams Glass Processing Worker Relationship Specialty Start Date End Date Isaiah Quiros MD [address] [place] [address] PCP - General Internal Medicine 04/01/17 06/02/20 Isaiah Quiros MD [address] [place] [address] Internal Medicine 02/18/17 03/19/21 Cash Heath III, MD [address] [address] Rheumatology 04/12/17 documented as of this encounter
--- OUTSIDE RECORDS SUMMARY | 2024-04-29 19:24 | XMS_ITS | Encounter Summary ---
Author Organization [facility] Address [address] [place] [address] Phone Care Team Providers Care State Tested Nursing Assistant Name Role Phone Isaiah Quiros MD Unavailable Isaiah Quiros MD Primary Care Provider [phone] Kumar CARRILLO MD, Cash Howard Unavailable [phone] Alex Mahajan MD Unavailable [phone] Reason for Visit * Reason Onset Date Comments Med Refill 09/10/2019 Encounter Details Date Type Department Care Team (Late st Contact Info) Description 09/10/[address] [address] Miriam Frye PA [address] [place] [address] Med Refill Social History Tobacco Use Types Packs/Day Years Used Date Smoking Tobacco: Never Alcohol Use Standard Drinks/Week Comments No 0 (1 standard drink = 0.6 oz pur e alcohol) Comments No Sex and Gender Information Value Date Recorded Sex Assigned at Not on file Legal Sex Female 9:24 PM MOLDER INFLATED BALL Gender Identity Female 08/14/2022 11:32 AM CDT Sexual Orientation Straight 02/13/2023 7: 01 AM CDT documented as of this encounter Ordered Prescriptions Prescription Sig Dispense Quantity Refills Last Filled Start Date End Date traMADoL (ULTRAM) 50 mg tablet Take 1 tablet (50 mg total) by mouth every 8 (eight) hours as needed for pain 90 tablet 09/10/2019 10/19/2019 documented in this encounter Miscellaneous Notes * Telephone Encounter - Tiara Rainey - 09/10/2019 10:11 AM CDT Script called & charted. * Telephone Encounter - Miriam Frye PA - 09/10/2019 10:03 AM CDT Please refill her tramadol. ty documented in this encounter Plan of Treatment Not on file documented as of this encounter Visit Diagnoses Not on filedocumented in this encounter Discontinued Medications Medication Sig Discontinue Reason Start Date End Da te traMADoL (ULTRAM) 50 mg tablet Take 1 tablet (50 mg total) by mouth every 8 (eight) hours as needed for pain Reorder 07/09/2019 09/10/2019 documented as of this encounter Care Teams State Tested Nursing Assistant Relationship Specialty Start Date End Date Isaiah Quiros MD [address] [place] [address] PCP - General Internal Medicine 04/01/17 06/02/20 Isaiah Quiros MD [address] [place] [address] Internal Medicine 02/18/17 03/19/21 Cash Heath III, MD [address] [facility] [address] [place] [address] Rheumatology 04/12/17 Alex Mahajan MD [address] [facility] [address] [place] [address] Referring Physician Internal Medicine 05/07/19 1 documented as of this encounter
--- OUTSIDE RECORDS SUMMARY | 2024-04-29 19:24 | XMS_ITS | Encounter Summary ---
Author Organization [facility] Facility Care Team Providers Care Epic Ambulatory Analyst Name Role Phone Isaiah Quiros MD Unavailable Isaiah Quiros MD Primary Care Provider [phone] Kumar ACRRILLO MD, Cash Howard Unavailable [phone] Encounter Details Date Type Department Care Team (Latest Contact Info) Description 10/27/2018 Travel Social History Tobacco Use Types Packs/Day Years Used Date Smoking Tobacco: Never Alcohol Use Standard Drinks/Week Comments No 0 (1 standard drink = 0.6 oz pur e alcohol) Comments No Sex and Gender Information Value Date Recorded Sex Assigned at Not on file Legal Sex Female 9:24 PM AREA RELIEF PILOT Gender Identity Female 08/14/2022 11:32 AM CDT Sexual Orientation Straight 02/13/2023 7: 01 AM CDT documented as of this encounter Plan of Treatment Not on file documented as of this encounter Visit Diagnoses Not on filedocumented in this encounter Care Teams Epic Ambulatory Analyst Relationship Specialty Start Date End Date Isaiah Quiros MD [address] [place] [address] PCP - General Internal Medicine 04/01/17 06/02/20 Isaiah Quiros MD [address] [place] [address] Internal Medicine 02/18/17 03/19/21 Cash Heath III, MD [address] [address] Rheumatology 04/12/17 documented as of this encounter
--- OUTSIDE RECORDS SUMMARY | 2024-04-29 19:24 | XMS_ITS | Encounter Summary ---
Author Organization [facility] Address [address] [place] [address] Phone Care Team Providers Care Civil Engineering Intern Name Role Phone Isaiah Quiros MD Unavailable Isaiah Quiros MD Primary Care Provider [phone] Kumar CARRILLO MD, Cash Howard Unavailable [phone] Alex Mahajan MD Unavailable [phone] Reason for Visit * Reason Onset Date Comments González VALLEJO approved, auth [id number] expires . Pleas 01/19/2020 Encounter Details Date Type Department Care Team (Late st Contact Info) Description 01/19/2020 Telephone [facility] [address] [place] [address] Ghazala Westbrook IV approved, auth [id number] expires 01/07/22. Pleas Social History Tobacco Use Types Packs/Day Years Used Date Smoking Tobacco: Never Alcohol Use Standard Drinks/Week Comments No 0 (1 standard drink = 0.6 oz pur e alcohol) Comments No Sex and Gender Information Value Date Recorded Sex Assigned at Not on file Legal Sex Female 9:24 PM ART CLASS MODEL Gender Identity Female 08/14/2022 11:32 AM CDT Sexual Orientation Straight 02/13/2023 7: 01 AM CDT documented as of this encounter Miscellaneous Notes * Telephone Encounter - Maisha Avila RN - 01/19/2020 5:04 PM CDT Scheduled * Telephone Encounter - Cash Heath III, MD - 01/19/2020 4:55 PM CDT done * Telephone Encounter - Ghazala Westbrook - 01/19/2020 1:18 PM CDT Orencia IV approved, auth [id number] expires 01/07/22. Please schedule patient. Please add to med list. Thank you. documented in this encounter Plan of Treatment Not on file documented as of this encounter Visit Diagnoses Not on filedocumented in this encounter Care Teams Civil Engineering Intern Relationship Specialty Start Date End Date Isaiah Quiros MD [address] [place] [address] PCP - General Internal Medicine 04/01/17 06/02/20 Isaiah Quiros MD [address] [place] [address] Internal Medicine 02/18/17 03/19/21 Cash Heath III, MD [address] [place] [address] Rheumatology 04/12/17 Alex Mahajan MD [address] [place] [address] Referring Physician Internal Medicine 05/07/19 1 documented as of this encounter
--- OUTSIDE RECORDS SUMMARY | 2024-04-29 19:24 | XMS_ITS | Encounter Summary ---
Author Organization [facility] Address [address] [place] [address] Phone Care Team Providers Care Stablehand Name Role Phone Isaiah Quiros MD Unavailable Isaiah Quiros MD Primary Care Provider [phone] Kumar CARRILLO MD, Cash Howard Unavailable [phone] Alex Mahajan MD Unavailable [phone] Reason for Visit * Reason Onset Date Comments Patient wants to stay with injectable Orencia at this time. 02/19/2020 Encounter Details Date Type Department Care Team (Late st Contact Info) Description 02/19/2020 Telephone [facility] [address] [place] [address] Ghazala Westbrook Patient wants to stay with injectable Orencia at this time. Social History Tobacco Use Types Packs/Day Years Used Date Smoking Tobacco: Never Alcohol Use Standard Drinks/Week Comments No 0 (1 standard drink = 0.6 oz pur e alcohol) Comments No Sex and Gender Information Value Date Recorded Sex Assigned at Not on file Legal Sex Female 9:24 PM IT TRAINEE Gender Identity Female 08/14/2022 11:32 AM CDT Sexual Orientation Straight 02/13/2023 7: 01 AM CDT documented as of this encounter Miscellaneous Notes * Telephone Encounter - Tiara Rainey - 02/19/2020 12:09 PM CDT BB sent phone message instructing Orencia SQ PA to be started. Done. * Telephone Encounter - Ghazala Westbrook - 02/19/2020 9:39 AM CDT Patient wants to stay with injectable Orencia at this time. Please start approval per Miriam. Thank you. documented in this encounter Plan of Treatment Not on file documented as of this encounter Visit Diagnoses Not on filedocumented in this encounter Care Teams Stablehand Relationship Specialty Start Date End Date Isaiah Quiros MD [address] [place] [address] PCP - General Internal Medicine 04/01/17 06/02/20 Isaiah Quiros MD [address] [place] [address] Internal Medicine 02/18/17 03/19/21 Cash Heath III, MD [address] [place] [address] Rheumatology 04/12/17 Alex Mahajan MD [address] [place] [address] Referring Physician Internal Medicine 05/07/19 1 documented as of this encounter
--- OUTSIDE RECORDS SUMMARY | 2024-04-29 19:25 | XMS_ITS | Encounter Summary ---
Author Organization [facility] Facility Care Team Providers Care Blankmaker Name Role Phone Unavailable Primary Care Provider Unavailabl e Encounter Details Date Type Department Care Team (Late st Contact Info) Description 05/03/2015 3:51 PM BIOINFORMATICS SOFTWARE ENGINEER - 05/03/2015 8:45 PM BIOINFORMATICS SOFTWARE ENGINEER Hospital Encounter [facility] Janeth Haynes, COMMUNICATION EQUIPMENT REPAIRER [phone] [place] [address] Gastro-esophageal reflux disease without esophagitis; Diarrhea; Osteoarthritis; Calculus of kidney; Other halfway (current) drug therapy; Personal history of other diseases of the digestive system Social History Tobacco Use Types Packs/Day Years Used Date Smoking Tobacco: Never Assessed Comments Unknown Sex and Gender Information Value Date Recorded Sex Assigned at Not on file Legal Sex Female 9:24 PM BIOINFORMATICS SOFTWARE ENGINEER Gender Identity Female 08/14/2022 11:32 AM CDT Sexual Orientation Straight 02/13/2023 7: 01 AM CDT documented as of this encounter Plan of Treatment Not on file documented as of this encounter Procedures Procedure Name Priority Date/Time Associated Diagnosis Comments US ABDOMEN LIMITED Routine 05/03/2015 6: 32 PM BIOINFORMATICS SOFTWARE ENGINEER URINE MICROSCOPY Routine 05/03/2015 4:23 PM BIOINFORMATICS SOFTWARE ENGINEER URINALYSIS Routine 05/03/2015 4:23 PM BIOINFORMATICS SOFTWARE ENGINEER SERUM LIPASE Routine 05/03/2015 4:06 PM BIOINFORMATICS SOFTWARE ENGINEER PLASMA HEPATIC FUNCTION PANEL Routine 05/03/2015 4:06 PM BIOINFORMATICS SOFTWARE ENGINEER PLASMA BASIC METABOLIC PANEL Routine 05/03/2015 4:06 PM BIOINFORMATICS SOFTWARE ENGINEER BLOOD CELL COUNT (CBC) Routine 05/03/2015 4:06 PM BIOINFORMATICS SOFTWARE ENGINEER DISCHARGE LABORATORY CUMULATIVE REPORT 05/03/2015 documented in this encounter Results * US Abdomen Limited (05/03/2015 6:32 PM BIOINFORMATICS SOFTWARE ENGINEER) Anatomical Region Laterality Modality Abdomen N/A Ultrasound 05/03/2015 6:32 PM BIOINFORMATICS SOFTWARE ENGINEER Narrative 05/04/2015 6:56 PM BIOINFORMATICS SOFTWARE ENGINEER BENJI RICHARDS M.D. CINTHIA SEN M.D. FINAL REPORT The radiology attending physician has personally reviewed this study, and has reviewed and/or edited this written report and agrees with it. ACC# ??Date Time ??Exam [id number] May 03, 2015 18:32:00 [id number] [employer] EXAMINATION: ?? LIMITED ABDOMINAL SONOGRAM DATE: ??05/03/2015 HISTORY: ??Right upper quadrant pain. FINDINGS: ??The gallbladder is contracted which likely accounts for the mild wall thickening measuring 4 mm. There are no gallstones and no pericholecystic fluid. The liver is normal in size, echotexture, and echogenicity. The previously described two small hyperechoic lesions in the right hemiliver are not demonstrated on this examination. There is no intrahepatic duct dilatation. There is no surface nodularity. ??The common duct is normal and measures 2 mm, 3 mm, and 2 mm in the proximal, mid and distal aspects respectively. There is no hydronephrosis in the visualized portion of the right kidney. Twinkle artifact in the right kidney suggest nonobstructive renal calculi which are subcentimeter and similar to the prior examination. The visualized portions of the head and body of the pancreas are normal. The proximal IVC is normal.. IMPRESSION: ?? 1. Contracted gallbladder. No gallstones or sonographic evidence of cholecystitis. 2. Nonobstructive right renal calculi. ADDENDUM: This addendum is being placed on the report for a non-time dependent finding on a patient who was discharged from the emergency room (Category 1C). Please note that contraction of the gallbladder limits evaluation for gallstones. If the patient has continued right upper quadrant pain, repeat evaluation of the gallbladder is warranted. Attempts will be made to contact the patient or his/her primary doctor during regular business hours Saturday-Saturday. An addendum will be issued to confirm contact has been made to communicate this finding. Requested By: JANETH BARRIENTOS ACNP Dictated By: ?? CINTHIA SEN M.D. ??on May 03 2015 ??7:23P This document has been electronically signed by: BENJI RICHARDS M.D. on May 04 2015 ??6:56P Procedure Note Provider, MD John - 08/20/2016 BENJI RICHARDS M.D. CINTHIA SEN M.D. FINAL REPORT The radiology attending physician has personally reviewed this study, and has reviewed and/or edited this written report and agrees with it. ACC# Date Time Exam [id number] May 03, 2015 18:32:00 [id number] [employer] EXAMINATION: LIMITED ABDOMINAL SONOGRAM DATE: 05/03/2015 HISTORY: Right upper quadrant pain. FINDINGS: The gallbladder is contracted which likely accounts for the mild wall thickening measuring 4 mm. There are no gallstones and no pericholecystic fluid. The liver is normal in size, echotexture, and echogenicity. The previously described two small hyperechoic lesions in the right hemiliver are not demonstrated on this examination. There is no intrahepatic duct dilatation. There is no surface nodularity. The common duct is normal and measures 2 mm, 3 mm, and 2 mm in the proximal, mid and distal aspects respectively. There is no hydronephrosis in the visualized portion of the right kidney. Twinkle artifact in the right kidney suggest nonobstructive renal calculi which are subcentimeter and similar to the prior examination. The visualized portions of the head and body of the pancreas are normal. The proximal IVC is normal.. IMPRESSION: 1. Contracted gallbladder. No gallstones or sonographic evidence of cholecystitis. 2. Nonobstructive right renal calculi. ADDENDUM: This addendum is being placed on the report for a non-time dependent finding on a patient who was discharged from the emergency room (Category 1C). Please note that contraction of the gallbladder limits evaluation for gallstones. If the patient has continued right upper quadrant pain, repeat evaluation of the gallbladder is warranted. Attempts will be made to contact the patient or his/her primary doctor during regular business hours Saturday-Saturday. An addendum will be issued to confirm contact has been made to communicate this finding. Requested By: JANETH BARRIENTOS ACNP Dictated By: CINTHIA SEN M.D. on May 03 2015 7:23P This document has been electronically signed by: BENJI RICHARDS M.D. on May 04 2015 6:56P Historical Provider IMG US PROCEDURES Final R esult * (ABNORMAL) Urinalysis (05/03/2015 4:23 PM BIOINFORMATICS SOFTWARE ENGINEER) Color, ur Yellow Yellow HISTORICAL RESULTS Clarity, ur Clear Clear HISTORIC AL RESULTS Specific gravity, ur 1.017 1.003 - 1.030 HISTORICAL RESULTS pH, ur 6.0 5.0 - 8.0 HISTORICAL RESULTS Protein, ur Negative Trace HISTORIC AL RESULTS Glucose, ur Negative Negative HISTORIC AL RESULTS Ketones, ur Negative Negative HISTORIC AL RESULTS Bilirubin, ur Negative Negative HISTOR ICAL RESULTS U Blood Negative Negative HISTORICAL RESULTS Urobilinogen, quant, ur <2.0(H) 0.0 - 1.9 mg/dl HISTORICAL RESULTS Nitrites, ur Negative Negative HISTORI ESTELLE RESULTS Leukocyte esterase, ur 3+(A) Negative HISTORICAL RESULTS Urine 05/03/2015 4:23 PM BIOINFORMATICS SOFTWARE ENGINEER Erlin Simental MD LAB BLOOD ORDERABLES Final Res ult HISTORICAL RESULTS * (ABNORMAL) Urine microscopy (05/03/2015 4:23 PM BIOINFORMATICS SOFTWARE ENGINEER) RBC, ur 7(H) 0 - 3 /hpf HISTORICA L RESULTS WBC, ur 6(H) 0 - 5 /hpf HISTORICA L RESULTS Bacteria, ur Trace Trace HISTORI ESTELLE RESULTS Epithelial cells, renal, ur 0 0 - 0 /hpf HISTORICAL RESULTS Epithelial cells, squamous, ur >20 /lpf HISTORICAL RESULTS Mucus, ur Small /hpf HISTORICAL RESULTS Urine 05/03/2015 4:23 PM BIOINFORMATICS SOFTWARE ENGINEER Result [facility] Erlin Simental MD LAB BLOOD ORDERABLES Final [facility] Performing Organization Address [facility] de Phone Number HISTORICAL RESULTS * (ABNORMAL) Plasma hepatic function panel (05/03/2015 4:06 PM BIOINFORMATICS SOFTWARE ENGINEER) Pathologist [facility] Protein, pl 7.7 6.5 - 8.5 g/dl HISTORICAL RESULTS Alb 4.4 3.6 - 5.0 g/dl HISTORICAL RESULTS Bilirubin 0.2(L) 0.3 - 1.1 mg/dl HISTORICAL RESULTS Alk phos 82 38 - 126 Units/L HISTORICAL RESULTS AST 22 11 - 47 Units/L HISTORICAL RESULTS ALT 40 7 - 53 Units/L HISTORICAL RESULTS Bilirubin, direct <0.1 0.0 - 0.3 mg/dl HISTORICAL RESULTS Plasma 05/03/2015 4:06 PM BIOINFORMATICS SOFTWARE ENGINEER Result [facility] Erlin Simental MD LAB BLOOD ORDERABLES Final [facility] Performing Organization Address [facility] de Phone Number HISTORICAL RESULTS * (ABNORMAL) Plasma basic metabolic panel (05/03/2015 4:06 PM BIOINFORMATICS SOFTWARE ENGINEER) Pathologist [facility] Sodium 141 135 - 145 mmol/L HISTORICAL RESULTS K, pl 3.8 3.3 - 4.9 mmol/L HISTORICAL RESULTS Chloride 107 97 - 110 mmol/L HISTORICAL RESULTS CO2 21(L) 22 - 32 mmol/L HISTORICAL RESULTS A. gap 13 0 - 16 mmol/L HISTORICAL RESULTS Glucose 112 70 - 199 mg/dl HISTORICAL RESULTS BUN 8 8 - 25 mg/dl HISTORICAL RESULTS Creatinine 0.77 0.60 - 1.10 mg/dl HISTORICAL RESULTS Calcium 9.4 8.6 - 10.3 mg/dl HISTORICAL RESULTS Plasma 05/03/2015 4:06 PM BIOINFORMATICS SOFTWARE ENGINEER Erlin Simental MD LAB BLOOD ORDERABLES Final Res ult HISTORICAL RESULTS * (ABNORMAL) Serum lipase (05/03/2015 4:06 PM BIOINFORMATICS SOFTWARE ENGINEER) Lip 126(H) 0 - 99 Units/L HISTORICAL RESULTS Serum 05/03/2015 4:06 PM BIOINFORMATICS SOFTWARE ENGINEER Erlin Simental MD LAB BLOOD ORDERABLES Final Res ult Performing Organization Address [facility] Co de Phone Number HISTORICAL RESULTS * (ABNORMAL) Blood cell count (CBC) (05/03/2015 4:06 PM BIOINFORMATICS SOFTWARE ENGINEER) WBC 7.7 3.8 - 9.8 K/cumm HISTORICAL RESULTS RBC 5.11(H) 3.90 - 5.00 M/cumm HISTORICAL RESULTS Hgb 13.9 12.1 - 15.1 g/dl HISTORICAL RESULTS Hct 42.7 36.1 - 44.3 % HISTORICAL RESULTS MCV 83.5 80.0 - 97.6 fl HISTORICAL RESULTS MCH 27.2 26.7 - 33.7 pg HISTORICAL RESULTS MCHC 32.5(L) 32.7 - 35.5 g/dl HISTORICAL RESULTS Rdw 13.6 11.8 - 14.6 % HISTORICAL RESULTS Platelets 395 140 - 440 K/cumm HISTORICAL RESULTS MPV 7.4 6.8 - 10.4 fl HISTORICAL RESULTS Neutrophils 64.8 38.7 - 74.5 % HISTORICAL RESULTS Lymphocytes 27.6 20.0 - 54.3 % HISTORICAL RESULTS Monos 4.9 4.3 - 13.5 % HISTORICAL RESULTS Eosinophils 1.6 0.0 - 6.0 % HISTORICAL RESULTS Basophils 1.1 0.0 - 3.0 % HISTORICAL RESULTS Neutrophils, abs 5.0 1.8 - 6.6 K/cumm HISTORICAL RESULTS Lymphocytes, abs 2.1 1.2 - 3.3 K/cumm HISTORICAL RESULTS Monocytes, absolute 0.4 0.2 - 1.2 K/cumm HISTORICAL RESULTS Eosinophils, abs 0.1 0.0 - 0.5 K/cumm HISTORICAL RESULTS Basophils, abs 0.1 0.0 - 0.2 K/cumm HISTORICAL RESULTS Blood specimen (specimen) 05/03/2015 4:06 PM BIOINFORMATICS SOFTWARE ENGINEER us Erlin Simental MD LAB BLOOD ORDERABLES Final Res ult HISTORICAL RESULTS * DISCHARGE LABORATORY CUMULATIVE REPORT (05/03/2015) Narrative 05/03/2015 Ordered by an unspecified provider. Historical Provider LAB BLOOD ORDERABLES Abigail l Result documented in this encounter Visit Diagnoses Diagnosis Gastro-esophageal reflux disease without esophagitis Diarrhea Osteoarthritis Osteoarthrosis, unspecified whether generalized or localized, unspecified site Calculus of kidney Other exterminator helper termite (current) drug therapy Personal history of other diseases of the digestive system documented in this encounter
--- OUTSIDE RECORDS SUMMARY | 2024-04-29 19:25 | XMS_ITS | Encounter Summary ---
Author Organization [facility] logy Address [address] [place] [phone] Phone Care Team Providers Care Ingot Car Operator Name Role Phone Isaiah Quiros MD Unavailable Isaiah Quiros MD Primary Care Provider [phone] Kumar CARRILLO MD, Cash Howard Unavailable [phone] Reason for Referral * Diagnostic Imaging (Routine) - Closed Specialty Diagnoses / Procedures Referred By Kaylynn t Referred To Contact Diagnoses Rheumatoid arthritis of multiple sites without rheumatoid factor (CMS/HCC) (HCC) Encounter for long-term (current) use of medications Procedures US Hand Complete Miriam Frye PA Phone: tel: fax: [facility] [address] [place] [address] Referral ID Status Reason Start Date Expiration Date Visits Re quested Visits Authorized [id number] Closed 09/19/2017 03/18/2018 1 1 Reason for Visit * Reason Comments Rheumatoid Arthritis Encounter Details Date Type Department Care Team (Late st Contact Info) Description 09/19/2017 3:15 PM CDT Office Visit [place] [phone] [address] Miriam Frye PA [address] [place] [address] Rheumatoid arthritis of multiple sites without rheumatoid factor (CMS/HCC) (Primary Dx); Encounter for long-term (current) use of medications; Hypermobile joints; Meredith-Danlos disease Social History Tobacco Use Types Packs/Day Years Used Date Smoking Tobacco: Never Alcohol Use Standard Drinks/Week Comments No 0 (1 standard drink = 0.6 oz pur e alcohol) Comments Unknown Sex and Gender Information Value Date Recorded Sex Assigned at Not on file Legal Sex Female 9:24 PM BACK PANEL PADDER Gender Identity Female 08/14/2022 11:32 AM CDT Sexual Orientation Straight 02/13/2023 7: 01 AM CDT documented as of this encounter Last Filed Vital Signs Vital Sign Reading Time Taken Comments Blood Pressure 110/78 09/19/2017 3:11 PM CDT Pulse 78 09/19/2017 3:11 PM CDT Temperature - - Respiratory Rate - - Oxygen Saturation - - Inhaled Oxygen Concentration - - Weight 84.4 kg (186 lb) 09/19/2017 3:11 PM CDT Height 167.6 cm (5' 6 ) 09/19/2017 3:11 PM CDT Body Mass Index 30.02 09/19/2017 3:11 PM CDT documented in this encounter Progress Notes * Miriam Frye PA - 09/19/2017 3:15 PM CDT Images from the original note were not included. Subjective/Objective Patient ID: Madalyn Smith is a 42 y.o. female. Chief Complaint Joint pain HPI Her pcp stopped her enbrel a few months ago since she had pneumonia and kept getting uti's, has hx of non-obstructing kidney stones. Her infections have resolved. Joints are swollen and painful. Review of Systems Constitutional: Negative for fatigue and fever. HENT: Negative for mouth sores. Respiratory: Negative for cough, chest tightness and shortness of breath. Cardiovascular: Negative for chest pain. Skin: Negative for rash. Physical Exam Constitutional: He appears well-developed and well-nourished. HENT: Head: Normocephalic and atraumatic. Right Ear: [...] Labs Lab Results Component Value Date WBC 8.23 01/01/2017 HGB 14.7 01/01/2017 HCT 44.4 01/01/2017 MCV 88.8 01/01/2017 Lab Results Component Value Date GLUCOSE 87 01/01/2017 CALCIUM 9.7 01/01/2017 SODIUM 141 01/01/2017 POTASSIUM 3.7 01/01/2017 CO2 24 01/01/2017 CHLORIDE 105 01/01/2017 BUNSER 10 01/01/2017 CREATININE 0.94 01/01/2017 Lab Results Component Value Date ALT 29 01/01/2017 AST 21 01/01/2017 ALKPHOS 79 01/01/2017 BILITOT 0.3 01/01/2017 Lab Results Component Value Date SEDRATE 9 07/04/2016 Lab Results Component Value Date CRP 0.27 07/04/2016 Assessment/Plan Diagnoses and all orders for this visit: 1. Rheumatoid arthritis of multiple sites without rheumatoid factor (CMS/HCC) (Primary) Mod cdai. Her pneumonia and uti's have resolved. Seen with dr haley. Will restart enbrel monotherapy and stay off imuran. Plaquenil did not help in past. F/u in 1 mo.advised to discuss getting kidney stones removed with urologist. RF neg but has a possible family hx of psoriatic arthritis (father) so if she develops psoriasis diagnosis will change to psoriatic arthritis. Was approved for enbrel in July. 2. Encounter for long-term (current) use of medications Check labs. Quant gold neg 07/04/16 TPMT nl 17 Weight loss with imuran, stopped it 01/2017 Failed humira Plaquenil failure 3. 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 Other orders - CBC with auto differential; Future - Comprehensive metabolic panel; Future - CRP (acute phase); Future - Erythrocyte sedimentation rate; Future Quant gold vectra Rt hand u/s Cosigned by Cash Heath MD at 09/19/2017 5:10 PM CDT documented in this encounter Plan of Treatment Not on file documented as of this encounter Procedures Procedure Name Priority Date/Time Associated Diagnosis Comments TB TEST, QUANTIFERON GOLD Routine 09/20/2017 1:01 PM CDT Rheumatoid arthritis of multiple sites without rheumatoid factor (CMS/HCC) Encounter for long-term (current) use of medications CBC WITH AUTO DIFFERENTIAL Routine 09/20/2017 1:01 PM CDT Rheumatoid arthritis of multiple sites without rheumatoid factor (CMS/HCC) Encounter for long-term (current) use of medications ERYTHROCYTE SEDIMENTATION RATE Routine 09/20/2017 1:01 PM CDT Rheumatoid arthritis of multiple sites without rheumatoid factor (CMS/HCC) Encounter for long-term (current) use of medications CRP (ACUTE PHASE) Routine 09/20/2017 1:0 1 PM CDT Rheumatoid arthritis of multiple sites without rheumatoid factor (CMS/HCC) Encounter for long-term (current) use of medications VECTRA(R) DA DISEASE ACTIVITY Routine 09/19/2017 Rheumatoid arthritis of multiple sites without rheumatoid factor (CMS/HCC) Encounter for long-term (current) use of medications documented in this encounter Results * US Hand Complete (09/30/2017 3:16 PM CDT) Anatomical Region Laterality Modality Hand N/A Ultrasound us Miriam VALLE IMG US PROCEDURES Final Result * TB test, quantiferon gold (09/20/2017 1:01 PM CDT) Pathologist [facility] Quantiferon TB Gold NEGATIVE NEGATIVE [facility] Comment: Negative test result. M. tuberculosis complex infection unlikely. NIL 0.01 IU/mL [facility] - [place] MITOGEN-NIL 9.86 IU/mL [facility] - [place] TB-NIL <0.00 IU/mL [facility] - [place] Comment: The Nil tube value is used to determine if the patient has a preexisting immune response which could cause a false-positive reading on the test. In order for a test to be valid, the Nil tube must have a value of less than or equal to 8.0 IU/mL. The mitogen control tube is used to assure the patient has a healthy immune status and also serves as a control for correct blood handling and incubation. It is used to detect false-negative readings. The mitogen tube must have a gamma interferon value of greater than or equal to 0.5 IU/mL higher than the value of the Nil tube. The TB antigen tube is coated with the M. tuberculosis specific antigens. For a test to be considered positive, the TB antigen tube value minus the Nil tube value must be greater than or equal to 0.35 IU/mL. For additional information, please refer to http://education.[employer] [facility]/faq/QFT (This link is being provided for informational/ educational purposes only.) Blood specimen (specimen) 09/20/2017 1:01 PM CDT 09/20/2017 1:01 PM CDT Narrative Resulting Agency Comment Performing Organization Information: ?Site ID: [place] ?Name: [facility] ?[address] [address] ?Director: Curtis Noe D.O., MPH us Miriam VALLE LAB BLOOD ORDERAB LES Final Result [facility] [employer] [facility] [place] * Erythrocyte sedimentation rate (09/20/2017 1:01 PM CDT) Pathologist [facility] Erythrocyte sedimentation rate 5 < OR = 20 mm/h [facility] [employer] [facility] Blood specimen (specimen) 09/20/2017 1:01 PM CDT 09/20/2017 1:01 PM CDT Narrative Resulting Agency Comment Performing Organization Information: ?Site ID: ?Name: [facility] ?Address: [address] [place] [address] ?Director: Bobby Mcarthur Miriam [facility]LE LAB BLOOD ORDERAB LES Final Result Performing Organization Address City/[facility]/ZIP Co de Phone Number [facility] [place] * CRP (acute phase) (09/20/2017 1:01 PM CDT) Pathologist [facility] C-RP 3.7 <8.0 mg/L [facility] D[facility] - [place] Blood specimen (specimen) 09/20/2017 1:01 PM CDT 09/20/2017 1:01 PM CDT Narrative Resulting Agency Comment Performing Organization Information: ?Site ID: [place] ?Name: [facility] ?Address: [address] [place] [id number] ?Director: Curtis Noe D.O., MPH Miriam [facility] BLOOD ORDERAB LES Final Result Performing Organization Address [facility] de Phone Number [facility] [place], [place] * (ABNORMAL) CBC with auto differential (09/20/2017 1:01 PM CDT) Pathologist [facility] WBC 7.8 3.8 - 10.8 Thousand/ uL [facility] RBC, POC 4.45 3.80 - 5.10 Million/u L [facility] Hgb 11.8 11.7 - 15.5 g/dL [facility] Hct 37.5 35.0 - 45.0 % [facility] MCV 84.3 80.0 - 100.0 fL [facility] MCH 26.5(L) 27.0 - 33.0 pg [facility] MCHC 31.5(L) 32.0 - 36.0 g/dL [facility] Rdw 13.9 11.0 - 15.0 % [facility] Platelets 331 140 - 400 Thousand/ uL [facility] MPV 9.3 7.5 - 12.5 fL [facility] Neutrophils, abs 4,774 1,500 - 7,800 cells/uL [facility] Neutrophil bands, abs CANCELED 0 - 750 cells/uL [facility] Comment:Result canceled by t he ancillary Metamyelocytes, abs CANCELED 0 cells/uL [facility] Comment:Result canceled by t he ancillary Absolute Myelocytes CANCELED 0 cells/uL [facility] [place] Comment:Result canceled by t he ancillary Promyelocytes, abs CANCELED 0 cells/uL [facility] [place] Comment:Result canceled by t he ancillary Lymphocytes, abs 2,324 850 - 3,900 cells/uL [facility] Monocyte abs 491 200 - 950 cells/uL [facility] Eosinophils, abs 117 15 - 500 cells/uL [facility] Basophils, abs 94 0 - 200 cells/uL [facility] Blast, cell CANCELED 0 cells/uL [facility] [place] Comment:Result canceled by t he ancillary NRBC abs CANCELED 0 cells/uL [facility] [place] Comment:Result canceled by t he ancillary Neutrophils 61.2 % [facility] [place] Neutrophilic bands CANCELED % [facility] [place] Comment:Result canceled by t he ancillary Metamyelocyte pct CANCELED % [facility] [place] Comment:Result canceled by t he ancillary Myelocyte pct CANCELED % [facility] [place] Comment:Result canceled by t he ancillary Promyelocyte pct CANCELED % [facility] [place] Comment:Result canceled by t he ancillary Lymphocyte pct 29.8 % [facility] Reactive lymph CANCELED 0 - 10 % [facility] Comment:Result canceled by t he ancillary Monocytes 6.3 % [facility] [place] Eosinophils 1.5 % [facility] [place] Basophils 1.2 % [facility] [place] Blast pct CANCELED % [facility] Comment:Result canceled by t he ancillary NRBC CANCELED 0 /100 WBC [facility] [place] Comment:Result canceled by t he ancillary Comment CANCELED [facility] Comment:Result canceled by t he ancillary Blood specimen (specimen) 09/20/2017 1:01 PM CDT 09/20/2017 1:01 PM CDT Narrative Resulting Agency Comment Performing Organization Information: ?Site ID: ?Name: [facility] ?Address: [facility] [place] [address] ?Director: Bobby Mcarthur us Miriam [facility] LAB BLOOD ORDERAB LES Final Result [facility] [place], [place] * Vectra(R) DA Disease Activity (09/19/2017) Blood specimen (specimen) Miriam [facility] LAB BLOOD ORDERAB LES Final Result Performing Organization Address City/[facility]/ZIP Co de Phone Number EXTERNAL LAB documented in this encounter Visit Diagnoses Diagnosis Rheumatoid arthritis of multiple sites without rheumatoid factor (CMS/HCC) (HCC)- Primary Encounter for long-term (current) use of medications Encounter for long-term (current) use of other medications Hypermobile joints Other joint derangement, not elsewhere classified, unspecified site Meredith-Danlos disease Emredith-Danlos syndrome documented in this encounter Care Teams Ingot Car Operator Relationship Specialty Start Date End Date Isaiah Quiros MD [address] [place] [address] PCP - General Internal Medicine 04/01/17 06/02/20 Isaiah Quiros MD [address] [place] [address] Internal Medicine 02/18/17 03/19/21 Cash Heath III, MD [address] [place] [address] Rheumatology 04/12/17 documented as of this encounter
--- OUTSIDE RECORDS SUMMARY | 2024-04-29 19:25 | XMS_ITS | Encounter Summary ---
Author Organization [facility] logy Address [address] [place] [phone] Phone Care Team Providers Care Form Raiser Name Role Phone Feliciano Dash MD Primary Care Provider Reason for Visit * Reason Onset Date Comments PCP INFO 02/11/2017 PCP INFO Encounter Details Date Type Department Care Team (Late st Contact Info) Description 02/11/[address] [address] Rach Granda PCP INFO (PCP INFO) Social History Tobacco Use Types Packs/Day Years Used Date Smoking Tobacco: Never Alcohol Use Standard Drinks/Week Comments No 0 (1 standard drink = 0.6 oz pur e alcohol) Comments Unknown Sex and Gender Information Value Date Recorded Sex Assigned at Not on file Legal Sex Female 9:24 PM DI[employer] Gender Identity Female 08/14/2022 11:32 AM CDT Sexual Orientation Straight 02/13/2023 7: 01 AM CDT documented as of this encounter Miscellaneous Notes * Telephone Encounter - Rach Granda - 02/11/2017 2:40 PM CDT PCP Info: Isaiah Quiros [phone]. Faxed ov notes per pt request. documented in this encounter Plan of Treatment Not on file documented as of this encounter Visit Diagnoses Not on filedocumented in this encounter Care Teams Form Raiser Relationship Specialty Start Date End Date Feliciano Dash MD PCP - General 07/20/16 02/17/17 documented as of this encounter
--- OUTSIDE RECORDS SUMMARY | 2024-04-29 19:25 | XMS_ITS | Encounter Summary ---
Author Organization [facility] logy Address [address] [place] [id number] Phone Care Team Providers Care Commutator Operator Name Role Phone Isaiah Quiros MD Unavailable Isaiah Quiros MD Primary Care Provider [phone] Kumar CARRILLO MD, John J. 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 Gender Identity Female 08/14/2022 11:32 AM CDT Sexual Orientation Straight 02/13/2023 7: 01 AM CDT documented as of this encounter Last Filed Vital Signs Vital Sign Reading Time Taken Comments Blood Pressure 124/70 08/14/2018 9:53 AM CDT Pulse 117 08/14/2018 9:53 AM CDT Temperature - - Respiratory Rate - - Oxygen Saturation - - Inhaled Oxygen Concentration - - Weight 88 kg (194 lb) 08/14/2018 9:53 AM CDT Height 167.6 cm (5' 6 ) 08/14/2018 9:53 AM CDT Body Mass Index 31.31 08/14/2018 9:53 AM CDT documented in this encounter Patient Instructions * Patient Instructions* Miriam Frye PA - 08/14/2018 10:00 AM CDT Patient Education Azathioprine (By mouth) Azathioprine (tm-ej-RNJL-oh-preen) Prevents your body from rejecting an organ after a transplant. Also treats rheumatoid arthritis. Brand Name(s): Fadi Jefferson There may be other brand names for this medicine. When This Medicine Should Not Be Used: This medicine is not right for everyone. Do not use it if you had an allergic reaction to azathioprine, or if you are . How to Use This Medicine: Tablet [...] pharmacist before using any other medicine, including ljng-bsz-bzjcecv medicines, vitamins, and herbal products. ?? Do not use this medicine if you have received other medicines for arthritis in the past such as chlorambucil, cyclophosphamide, or melphalan. ?? Some foods and medicines can affect how azathioprine works. Tell your doctor if you are using allopurinol, cotrimoxazole, mercaptopurine, mesalamine, olsalazine, ribavirin, sulfasalazine, a blood thinner (such as warfarin), or certain blood pressure medicines (CLEMENTINE inhibitors). ?? This medicine may interfere with vaccines. Ask your doctor before you get a flu shot or any other vaccines. Warnings While Using This Medicine: ?? It is not safe to take this medicine during . It could harm an unborn baby. Tell your doctor right away if you become . ?? Tell your doctor if you are , or if you have kidney disease, Crohn disease or bowelproblems, blood or bone marrow problems (such as anemia, low white blood cells, or low platelets inthe blood), or any type of infection. ?? This medicine may cause the following problems: ?? Higher risk of skin cancer or lymphoma ?? Higher risk of infection, including progressive multifocal leukoencephalopathy (PML) ?? Serious intestinal allergic reactions ?? This medicine may make you bleed, bruise, or get infections more easily. Take precautions to prevent illness and injury. Wash your hands often. ?? Use sunscreen with a sun protection factor (SPF) of at least 15 when you are outdoors. Wear protective clothing and hats, and stay out of direct sunlight between the hours of 10 a.m. and 3 p.m. Avoid sunlamps and tanning beds. ?? Your doctor will do lab tests [...] or throat, chest tightness, trouble breathing ?? Fever, chills, cough, sore throat, and body aches ?? Lightheadedness or fainting ?? Severe stomach pain, nausea, vomiting, or diarrhea ?? Sores on the skin ?? Unusual bleeding, bruising, or weakness If you notice these less serious side effects, talk with your doctor: ?? Hair loss ?? Joint or muscle pain ?? Sores or white patches on your lips, mouth, or throat If you notice other side effects that you think are caused by this medicine, tell your doctor. Call your doctor for medical advice about side effects. You may report side effects to FDA at 9-917-EEI-1088 ?? 2017 [employer] Information is for End User's use only and may not be sold, redistributed or otherwise used for commercial purposes. The above information is an environmental aide only. It is not intended as [...] 1 tablet (50 mg total) by mouth daily 30 tablet 1 08/14/2018 09/08/2018 documented in this encounter Progress Notes * Miriam Frye PA - 08/14/2018 10:00 AM CDT Images from the original note were not included. Subjective/Objective Patient ID: Madalyn Smith is a 43 y.o. female. Chief Complaint Joint pain HPI Continues to have a lot of joint pain. In past she had some weight loss with imuran but no other seand wants to retry it. Her tpmt was wnl in 2017. She is out of enbrel. Hands and wrists are swollenand painful. pcp checked bds and it showed osteoporosis. Is taking ca and vit d and her vit d and pth per pt were wnl. No sob, cp, rashes, oral or nose ulcers Has some pimple like lesions upper ant torso. Review of Systems Constitutional: Negative for fatigue and fever. HENT: Negative for mouth sores. Respiratory: Negative for cough, chest tightness and shortness of breath. Cardiovascular: Negative for chest pain. Skin:+ for rash. Physical Exam Constitutional: He appears [...] Lab Results Component Value Date WBC 8.1 08/01/2018 HGB 11.3 (L) 08/01/2018 HCT 36.7 08/01/2018 MCV 78.1 (L) 08/01/2018 Lab Results Component Value Date GLUCOSE 70 08/01/2018 CALCIUM 8.9 08/01/2018 SODIUM 140 08/01/2018 POTASSIUM 4.2 08/01/2018 CO2 25 08/01/2018 CHLORIDE 107 08/01/2018 BUNSER 14 08/01/2018 CREATININE 0.95 08/01/2018 Lab Results Component Value Date ALT 22 08/01/2018 AST 20 08/01/2018 ALKPHOS 77 08/01/2018 BILITOT 0.2 08/01/2018 Lab Results Component Value Date SEDRATE 8 08/01/2018 Lab Results Component Value Date CRP 3.3 08/01/2018 Rt Hand U/S 09/2017: Assessment/Plan Diagnoses and all orders for this visit: 1. Rheumatoid arthritis of multiple sites without rheumatoid factor ([facility]) (Primary) High cdai. Insurance denied sq orencia, has to fail humira which she has in past. Also they want her on xeljanz but she can't be since we are on imuran now. Will try for IV Orencia next. Pt is willing to drive 1 h for infusion. Plaquenil did not help in past. No hx of copd/emphysema. Has some pimple like lesions upper chest, to see derm for that. RF neg but has a possible family hx of psoriatic arthritis (father) so if she develops psoriasis diagnosis will change to psoriatic arthritis. Labs stable 08/01/18. Imuran caused weight loss 2 yrs agoso she stopped but is willing to try it again. TPMT wnl. Start imuran 50mg qd and check cbc/cmp in 2 weeks and f/u in 1 month. 2. Encounter for long-term (current) use of [...] ca and vit d and pcp checked vi td and pth and per pt wnl. Cosigned by Cash Heath III, MD at 08/14/2018 4:39 PM CDT documented in this encounter Plan of Treatment Not on file documented as of this encounter Procedures Procedure Name Priority Date/Time Associated Diagnosis Comments CBC WITH AUTO DIFFERENTIAL Routine 09/17/2018 11:16 AM CDT Rheumatoid arthritis of multiple sites without rheumatoid factor (CMS/HCC) COMPREHENSIVE METABOLIC PANEL Routine 09/17/2018 11:16 AM CDT Rheumatoid arthritis of multiple sites without rheumatoid factor (CMS/HCC) documented in this encounter Results * Comprehensive metabolic panel (09/17/2018 11:16 AM CDT) Glucose 89 65 - 99 mg/dL [facility] [place] Comment: ? Fasting reference interval BUN 11 7 - 25 mg/dL [facility] Creatinine 0.95 0.50 - 1.10 mg/dL [facility] [place] eGFR NON-AFR. SRI LANKAN 73 > OR = 60 mL/min/1. 73m2 [facility] EGFR 84 > OR = 60 mL/min/1. 73m2 [facility] [place] BUN/creat ratio NOT APPLICABLE 6 - 22 (calc) [facility] [place] Sodium 138 135 - 146 mmol/L [facility] [place] Potassium, pl 3.8 3.5 - 5.3 mmol/L [facility] [place] Chloride 106 98 - 110 mmol/L [facility] CO2 25 20 - 32 mmol/L [facility] [place] Calcium 9.1 8.6 - 10.2 mg/dL [facility] [place] Protein, sr 6.9 6.1 - 8.1 g/dL [facility] [place] Albumin 4.3 3.6 - 5.1 g/dL [facility] [place] GLOBULIN 2.6 1.9 - 3.7 g/dL (calc) [facility] [place] Alb/glob ratio 1.7 1.0 - 2.5 (calc) [facility] [place] Bilirubin, total 0.3 0.2 - 1.2 mg/dL [facility] [place] Alk phos 83 33 - 115 U/L [facility] [place] AST 12 10 - 30 U/L [facility] [place] ALT (SGPT) 17 6 - 29 U/L [facility] [place] Blood specimen (specimen) 09/17/2018 11:16 AM CDT 09/17/2018 11:18 AM CDT Narrative Resulting Agency Comment Performing Organization Information: ?Site ID: [id number] ?Name: [employer] [employer] [facility] ?Address: [address] [place] [address] [place] [address] ?Director: Curtis Noe D.O., MPH us Miriam [facility] BLOOD ORDERAB LES Final Result [facility] [place] * (ABNORMAL) CBC with auto differential (09/17/2018 11:16 AM CDT) WBC 7.5 3.8 - 10.8 Thousand/u L [facility] [place] RBC, POC 4.82 3.80 - 5.10 Million/uL [facility] [place] Hgb 11.7 11.7 - 15.5 g/dL [facility] [place] Hct 38.8 35.0 - 45.0 % [facility] MCV 80.5 80.0 - 100.0 fL [facility] MCH 24.3(L) 27.0 - 33.0 pg [facility] [place] MCHC 30.2(L) 32.0 - 36.0 g/dL [facility] [place] Rdw 17.0(H) 11.0 - 15.0 % [facility] [place] Platelets 387 140 - 400 Thousand/u L [facility] [place] MPV 9.1 7.5 - 12.5 fL [facility] [place] Neutrophils, abs 5,295 1,500 - 7,800 cells/uL [facility] [place] Lymphocytes, abs 1,650 850 - 3,900 cells/uL [facility] [place] Monocyte abs 458 200 - 950 cells/uL [facility] [place] Eosinophils, abs 30 15 - 500 cells/uL [facility] [place] Basophils, abs 68 0 - 200 cells/uL [facility] [place] Neutrophils 70.6 % [facility] [place] Lymphocyte pct 22.0 % [facility] [place] Monocytes 6.1 % [facility] [place] Eosinophils 0.4 % [facility] [place] Basophils 0.9 % [facility] [place] Blood specimen (specimen) 09/17/2018 11:16 AM CDT 09/17/2018 11:18 AM CDT Narrative Resulting Agency Comment Performing Organization Information: ?Site ID: [place] ?Name: [facility] ?Address: [address] [place], [place] [address] [id number] ?Director: Curtis Noe D.O., MPH us Miriam [facility] BLOOD ORDERAB LES Final Result [place] documented in this encounter Visit Diagnoses Diagnosis Rheumatoid arthritis of multiple sites without rheumatoid factor ([facility]/HCC) ([facility])- Primary Encounter for long-term (current) [...] mg tablet TAKE 1 TABLET BY MOUTH EVERY DAY Duplicate order 10/14/2017 08/14/2018 azaTHIOprine (IMURAN) 50 mg tablet TAKE 1 TABLET BY MOUTH EVERY DAY Duplicate order 10/14/2017 08/14/2018 ENBREL SURECLICK 50 mg/mL (0.98 mL) pen injector Inject one pen subcutaneously once weekly. Duplicate order 01/28/2018 08/14/2018 folic acid (FOLVITE) 1 mg tablet TAKE 1 TABLET BY ORAL ROUTE EVERY DAY Duplicate order 03/14/2016 08/14/2018 documented as of this encounter Care Teams Commutator Operator Relationship Specialty Start Date End Date Isaiah Quiros MD [address] [place] [address] PCP - General Internal Medicine 04/01/17 06/02/20 Isaiah Quiros MD [address] [place] [address] Internal Medicine 02/18/17 03/19/21 Cash Heath III, MD [address] [facility] [address] [place] [address] Rheumatology 04/12/17 documented as of this encounter
--- OUTSIDE RECORDS SUMMARY | 2024-04-29 19:25 | XMS_ITS | Encounter Summary ---
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 Social History Tobacco Use Types Packs/Day Years Used Date Smoking Tobacco: Never Alcohol Use Standard Drinks/Week Comments No 0 (1 standard drink = 0.6 oz pur e alcohol) Comments Unknown Sex and Gender Information Value Date Recorded Sex Assigned at Not on file 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 Sex Female 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 Gender Identity Female 08/14/2022 11:32 AM CDT Sexual Orientation Straight 02/13/2023 7: 01 AM CDT documented as of this encounter Last Filed Vital Signs Vital Sign Reading Time Taken Comments Blood Pressure 146/81 10/02/2015 4:44 PM CDT Pulse 98 10/02/2015 4:44 PM CDT Temperature 36.8 ??C (98.2 ??F) 10/02/2015 4:44 PM CD T Respiratory Rate - - Oxygen Saturation 98% 10/02/2015 4:44 PM CDT Inhaled Oxygen Concentration - - Weight 75.8 kg (167 lb) 10/02/2015 4:44 PM CDT Height 167.6 cm (5' 6 ) 10/02/2015 4:44 PM CDT Body Mass Index 26.95 10/02/2015 4:44 PM CDT documented in this encounter Medications at Time of Discharge DULoxetine DR (CYMBALTA) 60 mg capsule take 1 capsule by oral route every day 0 0 06/29/2015 1 hyoscyamine (OSCIMIN) 0.125 mg Take 0.125 mg by mouth every 3 hours 08/05/2015 2 linaclotide (LINZESS) 145 mcg capsule Take 145 mcg by mouth 09/15/2015 2 SUMAtriptan (SUMAtriptan) 6 mg/0.5 mL injection inject 0.5 milliliter by subcutaneous route once; may repeat in 1 hour if pain returns/increases in severity; (max2 doses/24 hours) 0 0 06/29/2015 7 documented as of this encounter Plan of Treatment Not on file documented as of this encounter Procedures Procedure Name Priority Date/Time Associated Diagnosis Comments URINALYSIS AND REFLEX TO MICROSCOPIC AND CULTURE Routine 10/02/2015 7:30 PM CDT CBC WITH AUTO DIFFERENTIAL Routine 10/02/2015 6:53 PM CDT APTT Routine 10/02/2015 5:59 PM CDT PROTIME-INR Routine 10/02/2015 5:59 PM CDT LIPASE Routine 10/02/2015 5:59 PM CDT COMPREHENSIVE METABOLIC PANEL Routine 10/02/2015 5:59 PM CDT US PELVIS W ENDOVAGINAL Routine 10/02/2015 12:[address] ABDOMEN PELVIS W CONTRAST Routine 10/02/2015 12:00 AM CDT documented in this encounter Results * Urinalysis reflex to microscopic and culture (10/02/2015 7:30 PM CDT) Ur Collection Type CLEAN CATCH Ur Culture Indicated? C&S NOT INDICATED Urine Color YELLOW YELLOW Urine Clarity Slightly-Marga udy CLEAR Urine Glucose (UA) NORMAL NORMAL mg/dL Urine Bilirubin NEGATIVE NEGATIVE mg/dl Urine Ketones NEGATIVE NEGATIVE mg/dL Ur Specific [place] 1.018 1.005 - 1.025 Urine Blood NEGATIVE NEGATIVE mg/dl Urine pH 5.0 5.0 - 8.0 Urine Protein NEGATIVE NEGATIVE mg/dL Urine Urobilinogen NORMAL NORMAL mg/dL Urine Nitrite NEGATIVE NEGATIVE Ur Leukocyte Esterase NEGATIVE NEGATIVE Andrey/ul Ur Microscopic Review Indicated or Ordered Urine RBC 3 0 - 2 /HPF Urine WBC 5 0 - 2 /HPF Urine Bacteria Few /HPF Urine Mucus RARE /LPF 10/02/2015 8:14 PM CDT [facility] HISTORICAL RESULTS Ur Squamous Epith Cells Rare /HPF 10/02/2015 8:14 PM CDT [facility] HISTORICAL RESULTS 10/02/2015 7:30 PM CDT 10/02/2015 7:56 PM CDT Narrative [facility] HISTORICAL RESULTS - 10/02/2015 8:14 PM CDT Nadine Avila PRODUCTION GEAR CUTTER LAB MICROBIOLOGY - GENERA L ORDERABLES Final Result [facility] HISTORICAL RESULTS * CBC with auto differential (10/02/2015 6:53 PM CDT) WBC 8.1 4.6 - 10.2 x10 3/ul 10/02/2015 7:17 PM CDT [facility] HISTORICAL RESULTS Comment:Results Reviewed RBC 4.66 3.76 - 4.80 x10 6/ul 10/02/2015 7:17 PM CDT [facility] HISTORICAL RESULTS Hemoglobin 13.1 11.0 - 15.0 g/dl 10/02/2015 7:17 PM CDT [facility] HISTORICAL RESULTS Hct 40.3 33.0 - 43.0 % 10/02/2015 7:17 PM CDT [facility] HISTORICAL RESULTS MCV 86.5 80.0 - 97.0 fl 10/02/2015 7:17 PM CDT [facility] HISTORICAL RESULTS MCH 28.1 27.0 - 31.2 pg 10/02/2015 7:17 PM CDT [facility] HISTORICAL RESULTS MCHC 32.5 31.8 - 35.4 g/dl 10/02/2015 7:17 PM CDT [facility] HISTORICAL RESULTS RDW 14.2 11.6 - 14.8 % 10/02/2015 7:17 PM CDT [facility] HISTORICAL RESULTS Plt Count 301 124 - 400 x10 3/ul 10/02/2015 7:17 PM CDT [facility] HISTORICAL RESULTS MPV 9.4 7.4 - 10.4 fl 10/02/2015 7:17 PM T [facility] HISTORICAL RESULTS Differential Method AUTOMATED DIFF --------- -- Neut % 60.5 37.0 - 85.0 % Immature Gran % 0.5 0.0 - 3.0 % Lymph % 32.3 5.0 - 45.0 % Gregg % 4.7 3.0 - 15.0 % Eos % 0.9 0.0 - 7.0 % Baso % 1.1 0.0 - 2.0 % ABSOLUTE COUNTS ABSOLUTE COUNTS --------- -- Absolute Neuts (auto) 4.9 1.7 - 8.7 x10 3/ul Immature Gran # 0.0 0.0 - 0.3 x10 3/ul Absolute Lymphs (auto) 2.6 0.2 - 4.6 x10 3/ul Absolute Monos (auto) 0.4 0.1 - 1.5 x10 3/ul Absolute Eos (auto) 0.1 0.0 - 0.7 x10 3/ul Absolute Basos (auto) 0.1 0.0 - 0.2 x10 3/ul 10/02/2015 6:53 PM CDT 10/02/2015 7:09 PM CDT Julito Buenrostro MD LAB BLOOD ORDERABLES Fin al Result Performing Organization Address [facility] Co de Phone Number [facility] HISTORICAL RESULTS * Protime-INR (10/02/2015 5:59 PM CDT) Pathologist [facility] PT 11.8 11.8 - 14.5 SECONDS 10/02/2015 6:19 PM CDT [facility] HISTORICAL RESULTS INR 0.86 0.01 - 5.99 10/02/2015 6:19 PM CDT [facility] HISTORICAL RESULTS Comment: Recommended Therapeutic range for Oral Anticoagulant Therapy No anti-coagulation therapy ? Normal Range: ?0.8-1.4 Anti-coagulation therapy ? Low intensity therapy ?2.0-3.0 ? High intensity therapy ?? 2.5-3.5 Critical Value ? Greater than or equal to 6.0 Patients should be monitored for serious bleeding. ?? 10/02/2015 5:59 PM CDT 10/02/2015 6:03 PM CDT Nadine Avila NP LAB BLOOD ORDERABLES Abigail l Result Performing Organization Address [facility] de Phone Number [facility] HISTORICAL RESULTS * aPTT (10/02/2015 5:59 PM CDT) Pathologist [facility] APTT 27 26 - 33 SECONDS 10/02/2015 6:20 PM CDT [facility] HISTORICAL RESULTS 10/02/2015 5:59 PM CDT 10/02/2015 6:03 PM CDT Nadine Avila NP LAB BLOOD ORDERABLES Abigail l Result Performing Organization Address [facility] de Phone Number [facility] HISTORICAL RESULTS * (ABNORMAL) Lipase (10/02/2015 5:59 PM CDT) Pathologist [facility] Lipase 108(H) 13 - 60 U/L 10/02/2015 6:35 PM CDT [facility] HISTORICAL RESULTS 10/02/2015 5:59 PM CDT 10/02/2015 6:03 PM CDT Nadine Avila PRODUCTION GEAR CUTTER LAB BLOOD ORDERABLES Abigail wahl Result [facility] HISTORICAL RESULTS * (ABNORMAL) Comprehensive metabolic panel (10/02/2015 5:59 PM CDT) Pathologist [facility] Sodium 141 135 - 145 mmol/L 10/02/2015 6:35 PM T [facility] HISTORICAL RESULTS Potassium 4.2 3.3 - 5.1 mmol/L Comment: HEMOLYZED: Hemolysis interferes with the above test. ?? SLIGHT VISIBLE HEMOLYSIS Chloride 109(H) 96 - 108 mmol/L Carbon Dioxide 18(L) 22 - 32 mmol/L 10/02/2015 6:35 PM T [facility] HISTORICAL RESULTS Anion Gap 14 7 - 16 10/02/2015 6:35 PM T [facility] HISTORICAL RESULTS Glucose 89 70 - 100 mg/dL BUN 13 6 - 20 mg/dL Creatinine 0.9 0.5 - 1.1 mg/dL Comment: NOTE: Estimated GFR (Cockroft-Gault) will NOT be calculated unless patient Height and Weight were entered. Also, Kidney Disease Stage (GFR) and Estimated GFR (Cockroft-Gault) will NOT be calculated if Creatinine result is <0.2. Kidney Disease Stage 73 mL/MIN Comment: NOTE; ??The GFR is an estimated value using the creatinine, sex, age, and race of the patient. THE ESTIMATED GFR IS VALIDATED FOR AGES 18-70 YEARS STAGE ?mL/Min ?DESCRIPTION ??1 ?90 mL/min or more ?Normal or elevated GFR ??2 ? 60-89 mL/min ?Mildly decreased GFR ??3 ? 30-59 mL/min ?Moderately decreased GFR ??4 ? 15-29 mL/min ?Severely decreased GFR ??5 ? <15 mL/min ? Kidney failure or on dialysis @ Est GFR (Cockcroft-G) 86 ml/MIN 10/02/2015 6:[facility] PM [facility] Calcium 8.8 8.6 - 10.0 mg/dL 10/02/2015 6:35 PM [facility] [employer] [facility] Total Protein 7.2 6.4 - 8.3 g/dL 10/02/2015 6:35 PM [facility] HISTOR[facility] RESULTS Albumin 4.3 3.5 - 5.2 g/dL 10/02/2015 6:35 PM [facility] [employer] [facility] HISTORICAL RESULTS Globulin 2.9 2.3 - 3.5 gm/dL 10/02/2015 6:35 PM [facility] HIST[facility] RESULTS Albumin/Globulin Ratio 1.5 1.1 - 1.8 10/02/2015 6:35 PM [facility] [employer] [facility] HISTORICAL RESULTS Total Bilirubin < 0.2 0.0 - 1.2 mg/dL 10/02/2015 6:35 PM [facility] HISTORICAL RESULTS AST 21 0 - 32 U/L 10/02/2015 6:36 PM [facility] [employer] [facility] RESULTS Comment: HEMOLYZED: Hemolysis interferes with the above test. ?? SLIGHT VISIBLE HEMOLYSIS ALT 16 0 - 33 U/L 10/02/2015 6:36 PM [facility] [employer] [facility] H[facility]OR[facility] RESULTS Comment: HEMOLYZED: Hemolysis interferes with the above test. ?? SLIGHT VISIBLE HEMOLYSIS Alkaline Phosphatase 63 35 - 104 U/L 10/02/2015 6:35 PM [facility]ISTOR[facility] RESULTS 10/02/2015 5:59 PM CDT 10/02/2015 6:03 PM CDT us Nadine Castromelinda Avila PRODUCTION GEAR CUTTER LAB BLOOD ORDERABLES Abigail wahl Result [facility] HISTORICAL RESULTS * US Pelvis W Endovaginal (10/02/2015 12:00 AM CDT) Anatomical Region Laterality Modality Pelvis N/A Ultrasound 10/02/2015 Impressions 10/02/2015 7:28 PM CDT ?? Unremarkable pelvic ultrasound. Normal appearing low resistance bilateral ovarian blood flow, with multiple benign-appearing follicles. ??Prior right ovarian cyst has resolved. THIS IS AN ELECTRONICALLY VERIFIED REPORT 10/02/2015 7:24 PM: ??Jose De Jesus Joe M.D. ?? Jose De Jesus Joe M.D. MD: 07:24 PM 07:24 PM [facility] [EOD] Narrative 10/02/2015 7:28 PM CDT EXAMINATION: TRANSABDOMINAL AND TRANSVAGINAL ULTRASOUND OF THE PELVIS HISTORY: ??40-year-old female with right lower quadrant abdominal pain for the past 6 weeks, increased and constant today. ??Patient with right ovarian cyst seen on previous ultrasound. ??LMP 09/21/2015. COMPARISON: ??Pelvic ultrasound 09/08/2015 TECHNIQUE: ??Real time camarena-scale and color/spectral Doppler ultrasound of the pelvis was performed using both a transabdominal and transvaginal approach. FINDINGS: ?? The uterus measures 9.7 x 5.5 x 3.8 cm. ??The endometrial stripe is not thickened, measuring 0.2 cm. No intrauterine lesions or Nabothian cysts are seen. The right ovary measures 3.0 x 2.0 x 2 cm. ??The previously noted right ovarian cyst has resolved. ??The left ovary measures 3.1 x 2.5 x 2.3 cm. ?? Benign-appearing ovarian follicles are noted bilaterally, largest on the left measuring 2.2 cm. ??Normal appearing low resistance blood flow is documented within both ovaries on color and spectral Doppler ultrasound. No pelvic free fluid is identified. Procedure Note Provider, MD John - 09/07/2020 EXAMINATION: TRANSABDOMINAL AND TRANSVAGINAL ULTRASOUND OF THE PELVIS HISTORY: 40-year-old female with right lower quadrant abdominal pain forthe past 6 weeks, increased and constant today. Patient with right ovariancyst seen on previous ultrasound. LMP 09/21/2015. COMPARISON: Pelvic ultrasound 09/08/2015 TECHNIQUE: Real time camarena-scale and color/spectral Doppler ultrasound ofthe pelvis was performed using both a transabdominal and transvaginalapproach. FINDINGS: The uterus measures 9.7 x 5.5 x 3.8 cm. The endometrial stripe is not thickened, measuring 0.2 cm. No intrauterine lesions or Nabothian cystsare seen. The right ovary measures 3.0 x 2.0 x 2 cm. The previously noted rightovarian cyst has resolved. The left ovary measures 3.1 x 2.5 x 2.3 cm. Benign-appearing ovarian follicles are noted bilaterally, largest on theleft measuring 2.2 cm. Normal appearing low resistance blood flow isdocumented within both ovaries on color and spectral Doppler ultrasound. No pelvic free fluid is identified. IMPRESSION: Unremarkable pelvic ultrasound. Normal appearing low resistance bilateral ovarian blood flow, with multiple benign-appearing follicles. Prior right ovarian cyst has resolved. THIS IS AN ELECTRONICALLY VERIFIED REPORT 10/02/2015 7:24 PM: Jose De Jesus Joe M.D. Jose De Jesus Joe M.D. MD: 07:24 PM 07:24 PM [facility] [EOD] us Nadine Lynette Avila NP IMG US PROCEDURES Final R esult * CT Abdomen Pelvis W Contrast (10/02/2015 12:00 AM CDT) Anatomical Region Laterality Modality Body N/A Computed Tomogra phy 10/02/2015 Impressions 10/02/2015 8:45 PM CDT 1. ??No acute abdominopelvic inflammatory process is evident. 2. ??Unremarkable appearing appendix. 3. ??Multiple hepatic lesions as detailed above, some of which are avidly enhancing. ??These demonstrate no interval size change since 04/02/2014. ??One avidly enhancing 7 mm lesion within the inferior right hepatic lobe demonstrates increased enhancement on today's exam, which could be related to different timing of contrast administration. ??These could represent hemangiomas but are incompletely characterized on today's study. ??If there is clinical concern, non emergent hepatic mass protocol MRI should be performed. 4. ??Nonobstructive bilateral nephrolithiasis. 5. ??Colonic diverticulosis. ??No evidence of acute diverticulitis. THIS IS AN ELECTRONICALLY VERIFIED REPORT 10/02/2015 8:41 PM: ??Jose De Jesus Joe M.D. ?? Jose De Jesus Joe M.D. MD: 08:41 PM 08:41 PM [facility] [EOD] Narrative 10/02/2015 8:45 PM CDT EXAMINATION: ??CT abdomen and pelvis with IV contrast HISTORY: ??40-year-old female with right lower quadrant abdominal pain for the past 6 weeks, increased last night, with nausea. ??History of diverticulitis. TECHNIQUE: ??CT of the abdomen and pelvis was performed with iv contrast. ??100 mL of Omnipaque 350 was instilled intravenously into the left wrist without complications. Automated exposure control was used as a dose optimization technique for this examination. COMPARISON: ??Pelvic ultrasound performed earlier today. ??CT abdomen/pelvis 04/02/2014. FINDINGS: ?? The imaged lung bases demonstrate trace subsegmental atelectasis. ??No pleural effusion is seen. An avidly enhancing mass within the inferior right hepatic lobe (axial image 46) appears similarly sized to the previous CT but with increased enhancement. Another avidly enhancing mass within the inferior right hepatic lobe measuring 1 cm remains unchanged. ??Multiple low density hepatic lesions demonstrate no significant interval change, the largest within the lateral right lobe measuring 1.1 cm (axial image 26). Most of these low-attenuation hepatic lesions are too small to definitively characterize. ??No new intrahepatic lesion is identified. ?? Nonobstructive bilateral renal calculi are again noted, the largest on the right in the interpolar region measuring 5 mm. ??Sub-centimeter bilateral renal cortex hypodensities are present, too small to definitively characterize. ??No hydronephrosis or hydroureter is seen. ??No calculi are identified within either ureter or within the urinary bladder. Splenic calcified granulomas are present. ??The pancreas, gallbladder, and adrenal glands appear unremarkable. The stomach, small bowel, and colon appear normal in course and caliber, without evidence of obstruction or inflammation. ??The appendix appears unremarkable (axial images 97 - 105). ??There is colonic diverticulosis, most pronounced in the sigmoid region, without adjacent inflammatory change. ??No ascites, pneumoperitoneum, or size significant lymphadenopathy is seen. ?? Bilateral ovarian dominant follicles are noted, as seen on the pelvic ultrasound performed earlier today. ??The uterus appears grossly unremarkable. ?? The urinary bladder is decompressed. The abdominal aorta is nonaneurysmal. ??The imaged osseous structures appear intact. ??No aggressive osseous lesion is noted. Procedure Note Provider, MD John - 09/07/2020 EXAMINATION: CT abdomen and pelvis with IV contrast HISTORY: 40-year-old female with right lower quadrant abdominal pain forthe past 6 weeks, increased last night, with nausea. History ofdiverticulitis. TECHNIQUE: CT of the abdomen and pelvis was performed with iv contrast.100 mL of Omnipaque 350 was instilled intravenously into the left wristwithout complications. Automated exposure control was used as a dose optimization technique for this examination. COMPARISON: Pelvic ultrasound performed earlier today. CT abdomen/pelvis 04/02/2014. FINDINGS: The imaged lung bases demonstrate trace subsegmental atelectasis. Nopleural effusion is seen. An avidly enhancing mass within the inferior right hepatic lobe (axialimage 46) appears similarly sized to the previous CT but with increasedenhancement. Another avidly enhancing mass within the inferior right hepatic lobe measuring 1 cm remains unchanged. Multiple low density hepatic lesions demonstrate no significant interval change, the largest within the lateral right lobe measuring 1.1 cm (axial image 26). Most of theselow-attenuation hepatic lesions are too small to definitively characterize. No new intrahepatic lesion is identified. Nonobstructive bilateral renal calculi are again noted, the largest on the right in the interpolar region measuring 5 mm. Sub-centimeter bilateralrenal cortex hypodensities are present, too small to definitively characterize.No hydronephrosis or hydroureter is seen. No calculi are identified within either ureter or within the urinary bladder. Splenic calcified granulomas are present. The pancreas, gallbladder, and adrenal glands appear unremarkable. The stomach, small bowel, and colon appear normal in course and caliber, without evidence of obstruction or inflammation. The appendix appears unremarkable (axial images 97 - 105). There is colonic diverticulosis,most pronounced in the sigmoid region, without adjacent inflammatory change.No ascites, pneumoperitoneum, or size significant lymphadenopathy is seen. Bilateral ovarian dominant follicles are noted, as seen on the pelvic ultrasound performed earlier today. The uterus appears grosslyunremarkable. The urinary bladder is decompressed. The abdominal aorta is nonaneurysmal. The imaged osseous structuresappear intact. No aggressive osseous lesion is noted. IMPRESSION: 1. No acute abdominopelvic inflammatory process is evident. 2. Unremarkable appearing appendix. 3. Multiple hepatic lesions as detailed above, some of which are avidly enhancing. These demonstrate no interval size change since 04/02/2014.One avidly enhancing 7 mm lesion within the inferior right hepatic lobe demonstrates increased enhancement on today's exam, which could be relatedto different timing of contrast administration. These could represent hemangiomas but are incompletely characterized on today's study. If thereis clinical concern, non emergent hepatic mass protocol MRI should beperformed. 4. Nonobstructive bilateral nephrolithiasis. 5. Colonic diverticulosis. No evidence of acute diverticulitis. THIS IS AN ELECTRONICALLY VERIFIED REPORT 10/02/2015 8:41 PM: Jose De Jesus Joe M.D. Jose De Jesus Joe M.D. : 08:41 PM 08:41 PM [facility] [EOD] Julito Buenrostro MD IM CT PROCEDURES Final Result documented in this encounter Visit Diagnoses Diagnosis Abdominal pain Abdominal pain, unspecified site Liver disease Unspecified disorder of liver Calculus of kidney Ovarian cyst Other and unspecified ovarian cyst Diverticulosis of intestine without perforation or abscess without bleeding Other senior care (current) drug therapy documented in this encounter Care Teams Fraternity House Cook Relationship Specialty Start Date End Date Feliciano Dash MD PCP - General 07/13/15 03/07/16 documented as of this encounter
--- OUTSIDE RECORDS SUMMARY | 2024-04-29 19:25 | XMS_ITS | Encounter Summary ---
Author Organization [facility] Address [address] [place] [id number] Phone Care Team Providers Care Collar Pointer Name Role Phone Isaiah Quiros MD Unavailable Isaiah Quiros MD Primary Care Provider [phone] Kumar CARRILLO MD, Cash Howard Unavailable [phone] Encounter Details Date Type Department Care Team (Late st Contact Info) Description 10/03/2017 Telephone [place] [id number] [address] Kraig Garcia Social History Tobacco Use Types Packs/Day Years Used Date Smoking Tobacco: Never Alcohol Use Standard Drinks/Week Comments No 0 (1 standard drink = 0.6 oz pur e alcohol) Comments Unknown Sex and Gender Information Value Date Recorded Sex Assigned at Not on file 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 Mod synovitis on u/s she needs to restart her meds and f/u in 2 mo. Spoke to pt, informed. Pt says she is having kidney stones removed Saturday and has f/u w/Dr. Heath on10/18. documented in this encounter Plan of Treatment Not on file documented as of this encounter Visit Diagnoses Not on filedocumented in this encounter Care Teams Collar Pointer Relationship Specialty Start Date End Date Isaiah Quiros MD [address] [place] [address] PCP - General Internal Medicine 04/01/17 06/02/20 Isaiah Quiros MD [address] [place] [address] Internal Medicine 02/18/17 03/19/21 Cash Heath III, MD [address] [place] [address] Rheumatology 04/12/17 documented as of this encounter
--- OUTSIDE RECORDS SUMMARY | 2024-04-29 19:25 | XMS_ITS | Encounter Summary ---
Author Organization [facility] Facility Care Team Providers Care Nurse Administrator Name Role Phone Feliciano Dash MD Primary Care Provider [phone] Encounter Details Date Type Department Care Team (Latest Contact Info) Description 01/31/2016 9:38 AM CDT - 01/31/2016 11:59 PM CDT Hospital Encounter [facility] Leny Casey MD [address] [facility] [address] [address] Fusion of spine of lumbar region; Other spondylosis, lumbar region; Other dental procedure status; Calculus of kidney; Diverticulosis of large intestine without perforation or abscess without bleeding; Meredith-Danlos syndrome; Pain in left knee; Pain in right knee; Pain in left hip; Pain in right hip; Pain in left wrist; Pain in right wrist; Pain in left ankle; Pain in right ankle; Sacrococcygeal disorders, not elsewhere classified; 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, lumbosacral region (HCC) Social History Tobacco Use Types Packs/Day Years Used Date Smoking Tobacco: Never Alcohol Use Standard Drinks/Week Comments No 0 (1 standard drink = 0.6 oz pur e alcohol) Comments Unknown Sex and Gender Information Value Date Recorded Sex Assigned at Not on file 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 Gender Identity Female 08/14/2022 11:32 AM CDT Sexual Orientation Straight 02/13/2023 7: 01 AM CDT documented as of this encounter Medications at Time of Discharge pantoprazole DR (PROTONIX) 40 mg EC tablet TAKE 1 TABLET(40 MG) BY MOUTH DAILY 30 MINUTES BEFORE BREAKFAST 12/21/2015 cyclobenzaprine (FLEXERIL) 5 mg tablet TAKE 1 TABLET BY ORAL ROUTE EVERY BEDTIME 30 0 11/03/[address] (CYMBALTA) 60 mg capsule take [...] Procedure Name Priority Date/Time Associated Diagnosis Comments NM BONE IMAGING SPECT/CT Routine 01/31/2016 2:10 PM CDT NM BONE IMAGING WHOLE BODY Routine 01/31/2016 2:10 PM CDT documented in this encounter Results * NM Bone Imaging Whole Body (01/31/2016 2:10 PM CDT) Anatomical Region Laterality Modality N/A Nuclear Medicine 01/31/2016 2:10 PM CDT Narrative 01/31/2016 3:24 PM CDT Whole body bone scintigraphy with detailed SPECT-CT imaging of the lumbar spine HISTORY: 40-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 ?? She has multifocal joint pain including the knees, hips, wrists, ankles, and SI joints. ??There is also lumbar pain. ??Recent left-sided dental procedure. FINDINGS: 27.5 mCi of technetium 99m MDP was administered intravenously. ??Three-hour delayed images of the body were obtained. ?? Additionally, SPECT-CT imaging was performed from the top of T11 through the coccyx. The patient is noted to have 5 yaf-upj-qablzki lumbar segments although the L5 segment is sacralized bilaterally and fused to S1. ?? The planar and SPECT images both demonstrate prominently increased MDP accumulation corresponding to advanced degenerative facet disease at the left L4-L5 facet joint. ??Focally increased MDP accumulation is seen in the left mandible, presumably corresponding to the patient's recent dental procedure. ??Areas of minimally increased MDP accumulation is seen at the right knee and in the feet which are presumably degenerative. ??The scintigraphic images are otherwise unremarkable. The nondiagnostic CT images demonstrate the presence of multiple bilateral small nonobstructing renal calculi. ??Recommend clinical correlation. ??Mild sigmoid diverticulosis is also noted. IMPRESSION: 1. ??Note is made of 5 cta-qxd-ieumlzr lumbar segments with a bilaterally sacralized L5 fused to the adjacent S1 segment. 2. ??Prominently increased MDP accumulation corresponding to advanced degenerative facet disease at the left L4-L5 facet joint. 3. ??Increased MDP accumulation in the left mandible, presumably corresponding to the patient's recent dental procedure. 4. ??Minimally increased MDP accumulation at the right knee and in the feet, presumably degenerative. 5. ??No other scintigraphic abnormalities. 6. ??The nondiagnostic CT images demonstrate multiple small bilateral nonobstructing renal calculi and mild sigmoid diverticulosis. Electronically signed by: Daljit White M.D. Radiologist: DALJIT WHITE MD ?? Attending: ??LENY CASEY MD Requesting: LENY CASEY MD Requesting Fax: ?? Requesting ID: [id number] Attending Fax: ?? Attending ID: ?? [id number] Completed Time: ?? 01/31/2016 2:10 PM Dictated Time: ?N/A Transcribed Time: 01/31/2016 3:24 PM Signed by: ?DALJIT WHITE MD ?? 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 She has multifocal joint pain including the knees, hips, wrists, ankles, and SI joints. There is also lumbar pain. Recent left-sided dental procedure. FINDINGS: 27.5 mCi of technetium 99m MDP was administered intravenously. Three-hour delayed images of the body were obtained. Additionally, SPECT-CT imaging was performed from the top of T11 through the coccyx. The patient is noted to have 5 lwu-rvh-jdaqxpj lumbar segments although the L5 segment is sacralized bilaterally and fused to S1. The planar and SPECT images both demonstrate prominently increased MDP accumulation corresponding to advanced degenerative facet disease at the left L4-L5 facet joint. Focally increased MDP accumulation is seen in the left mandible, presumably corresponding to the patient's recent dental procedure. Areas of minimally increased MDP accumulation is seen at the right knee and in the feet which are presumably degenerative. The scintigraphic images are otherwise unremarkable. The nondiagnostic CT images demonstrate the presence of multiple bilateral small nonobstructing renal calculi. Recommend clinical correlation. Mild sigmoid diverticulosis is also noted. IMPRESSION: 1. Note is made of 5 mnd-jts-hqqsamw lumbar segments with a bilaterally sacralized L5 fused to the adjacent S1 segment. 2. Prominently increased MDP accumulation corresponding to advanced degenerative facet disease at the left L4-L5 facet joint. 3. Increased MDP accumulation in the left mandible, presumably corresponding to the patient's recent dental procedure. 4. Minimally increased MDP accumulation at the right knee and in the feet, presumably degenerative. 5. No other scintigraphic abnormalities. 6. The nondiagnostic CT images demonstrate multiple small bilateral nonobstructing renal calculi and mild sigmoid diverticulosis. Electronically signed by: Daljit White M.D. Radiologist: DALJIT WHITE MD Attending: LENY CASEY MD Requesting: LENY CASEY MD Requesting Requesting ID: [id number] Attending Attending ID: [id number] Completed Time: 01/31/2016 2:10 PM Dictated Time: N/A Transcribed Time: 01/31/2016 3:24 PM Signed by: DALJIT WHITE MD on 01/31/2016 3:24 PM Report To 1 ID: Report To 1 Name: , Report To 1 FAX: Report To 2 ID: Report To 2 Name: , Report To 2 FAX: Report To 3 ID: Report To 3 Name: , Report To 3 FAX: NextGen Order #: us Historical Provider MD MANAS NUÑEZ PROCEDURES Final R esult * NM Bone Imaging Spect (01/31/2016 2:10 PM CDT) Anatomical Region Laterality Modality N/A Nuclear Medicine 01/31/2016 2:10 PM CDT Narrative 01/31/2016 3:24 PM CDT Whole body bone scintigraphy with detailed SPECT-CT imaging of the lumbar spine HISTORY: 40-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 ?? She has multifocal joint pain including the knees, hips, wrists, ankles, and SI joints. ??There is also lumbar pain. ??Recent left-sided dental procedure. FINDINGS: 27.5 mCi of technetium 99m MDP was administered intravenously. ??Three-hour delayed images of the body were obtained. ?? Additionally, SPECT-CT imaging was performed from the top of T11 through the coccyx. The patient is noted to have 5 foi-mfa-aqzxnlf lumbar segments although the L5 segment is sacralized bilaterally and fused to S1. ?? The planar and SPECT images both demonstrate prominently increased MDP accumulation corresponding to advanced degenerative facet disease at the left L4-L5 facet joint. ??Focally increased MDP accumulation is seen in the left mandible, presumably corresponding to the patient's recent dental procedure. ??Areas of minimally increased MDP accumulation is seen at the right knee and in the feet which are presumably degenerative. ??The scintigraphic images are otherwise unremarkable. The nondiagnostic CT images demonstrate the presence of multiple bilateral small nonobstructing renal calculi. ??Recommend clinical correlation. ??Mild sigmoid diverticulosis is also noted. IMPRESSION: 1. ??Note is made of 5 ycb-lmr-nyfqxzy lumbar segments with a bilaterally sacralized L5 fused to the adjacent S1 segment. 2. ??Prominently increased MDP accumulation corresponding to advanced degenerative facet disease at the left L4-L5 facet joint. 3. ??Increased MDP accumulation in the left mandible, presumably corresponding to the patient's recent dental procedure. 4. ??Minimally increased MDP accumulation at the right knee and in the feet, presumably degenerative. 5. ??No other scintigraphic abnormalities. 6. ??The nondiagnostic CT images demonstrate multiple small bilateral nonobstructing renal calculi and mild sigmoid diverticulosis. Electronically signed by: Daljit White M.D. Radiologist: DALJIT WHITE MD ?? Attending: ??LENY CASEY MD Requesting: LENY CASEY MD Requesting Fax: ?? Requesting ID: [id number] Attending Fax: ?? Attending ID: ?? [id number] Completed Time: ?? 01/31/2016 2:10 PM Dictated Time: ?N/A Transcribed Time: 01/31/2016 3:24 PM Signed by: ?DALJIT WHITE MD ?? 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 She has multifocal joint pain including the knees, hips, wrists, ankles, and SI joints. There is also lumbar pain. Recent left-sided dental procedure. FINDINGS: 27.5 mCi of technetium 99m MDP was administered intravenously. Three-hour delayed images of the body were obtained. Additionally, SPECT-CT imaging was performed from the top of T11 through the coccyx. The patient is noted to have 5 vlo-csc-nqtpzqd lumbar segments although the L5 segment is sacralized bilaterally and fused to S1. The planar and SPECT images both demonstrate prominently increased MDP accumulation corresponding to advanced degenerative facet disease at the left L4-L5 facet joint. Focally increased MDP accumulation is seen in the left mandible, presumably corresponding to the patient's recent dental procedure. Areas of minimally increased MDP accumulation is seen at the right knee and in the feet which are presumably degenerative. The scintigraphic images are otherwise unremarkable. The nondiagnostic CT images demonstrate the presence of multiple bilateral small nonobstructing renal calculi. Recommend clinical correlation. Mild sigmoid diverticulosis is also noted. IMPRESSION: 1. Note is made of 5 irp-twb-njknfcb lumbar segments with a bilaterally sacralized L5 fused to the adjacent S1 segment. 2. Prominently increased MDP accumulation corresponding to advanced degenerative facet disease at the left L4-L5 facet joint. 3. Increased MDP accumulation in the left mandible, presumably corresponding to the patient's recent dental procedure. 4. Minimally increased MDP accumulation at the right knee and in the feet, presumably degenerative. 5. No other scintigraphic abnormalities. 6. The nondiagnostic CT images demonstrate multiple small bilateral nonobstructing renal calculi and mild sigmoid diverticulosis. Electronically signed by: Daljit White M.D. 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, lumbar region Other dental procedure status Calculus of kidney Diverticulosis of large intestine without perforation or abscess without bleeding Meredith-Danlos syndrome Pain in left knee Pain in right knee Pain in left hip Pain in right hip Pain in left wrist Pain in joint, forearm Pain in right wrist Pain in joint, forearm Pain in left ankle Pain in right ankle Sacrococcygeal disorders, not elsewhere classified 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
--- OUTSIDE RECORDS SUMMARY | 2024-04-29 19:25 | XMS_ITS | Encounter Summary ---
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 factor ([facility]/HCC) Social History Tobacco Use Types Packs/Day Years Used Date Smoking Tobacco: Never Alcohol Use Standard Drinks/Week Comments No 0 (1 standard drink = 0.6 oz pur e alcohol) Comments Unknown Sex and Gender Information Value Date Recorded Sex Assigned at Not on file 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 Gender Identity Female 08/14/2022 11:32 AM CDT Sexual Orientation Straight 02/13/2023 7: 01 AM CDT documented as of this encounter Medications at Time of Discharge cyclobenzaprine (FLEXERIL) 5 mg tablet TAKE 1 [...] Procedure Name Priority Date/Time Associated Diagnosis Comments PLASMA C-REACTIVE PROTEIN Routine 11/03/2015 12:05 PM CDT PLASMA COMPREHENSIVE METABOLIC PANEL Routine 11/03/2015 12:05 PM CDT BLOOD ERYTHROCYTE SEDIMENTATION RATE (ESR) Routine 11/03/2015 12:05 PM CDT BLOOD CELL COUNT (CBC), MORPHOLOGIC EXAM Routine 11/03/2015 12:05 PM CDT DISCHARGE LABORATORY CUMULATIVE REPORT 11/03/2015 documented in this encounter Results * Blood erythrocyte sedimentation rate (ESR) (11/03/2015 12:05 PM CDT) Erythrocyte sedimentation rate 7.0 0.0 - 20.0 mm/hr CDR HISTORICAL RESULTS Blood specimen (specimen) 11/03/2015 12:05 PM CDT us Antonio Morataya MD LAB BLOOD ORDERABLES Final Resul t CDR HISTORICAL RESULTS * (ABNORMAL) Blood cell count (CBC), morphologic exam (11/03/2015 12:05 PM CDT) WBC 8.2 3.8 - 9.9 K/cumm CDR HISTORICAL RESULTS RBC 4.52 3.90 - 5.20 M/cumm CDR HISTORICAL RESULTS Hgb 12.9 11.9 - 15.5 g/dl CDR HISTORICAL RESULTS Hct 41.1 35.6 - 45.5 % CDR HISTORICAL RESULTS MCV 90.9 81.3 - 96.4 fl CDR HISTORICAL RESULTS MCH 28.5 27.1 - 33.3 pg CDR HISTORICAL RESULTS MCHC 31.4(L) 32.3 - 35.7 g/dl CDR HISTORICAL RESULTS RDW 47.6 35.7 - 48.1 fl CDR HISTORICAL RESULTS Rdw 14.4 11.1 - 14.9 % CDR HISTORICAL RESULTS Platelets 333 150 - 400 K/cumm CDR HISTORICAL RESULTS MPV 9.2 9.1 - 12.3 fl CDR HISTORICAL RESULTS Neutrophils 71.7 44.0 - 80.0 % CDR HISTORICAL RESULTS Lymphocytes 21.1 13.0 - 44.0 % CDR HISTORICAL RESULTS Monos 5.3 2.0 - 11.0 % CDR HISTORICAL RESULTS Eosinophils 0.6 0.0 - 6.0 % CDR HISTORICAL RESULTS Basophils 0.8 0.0 - 3.0 % CDR HISTORICAL RESULTS Immature granulocytes 0.5 0.0 - 1.0 % CDR HISTORICAL RESULTS NRBC 0.0 0.0 - 0.2 % CDR HISTORICAL RESULTS Neutrophils, abs 5.9 1.7 - 6.5 K/cumm CDR HISTORICAL RESULTS Lymphocytes, abs 1.7 0.8 - 3.3 K/cumm CDR HISTORICAL RESULTS Monocytes, absolute 0.4 0.2 - 0.8 K/cumm CDR HISTORICAL RESULTS Eosinophils, abs 0.0 0.0 - 0.5 K/cumm CDR HISTORICAL RESULTS Basophils, abs 0.1 0.0 - 0.1 K/cumm CDR HISTORICAL RESULTS Immature granulocyte, abs 0.0 0.0 - 0.1 K/cumm CDR HISTORICAL RESULTS NRBC, abs 0.00 0.00 - 0.01 K/cumm CDR HISTORICAL RESULTS Blood specimen (specimen) 11/03/2015 12:05 PM CDT us Antonio Morataya MD LAB BLOOD ORDERABLES Final Resul t CDR HISTORICAL RESULTS * Plasma comprehensive metabolic panel (11/03/2015 12:05 PM CDT) Sodium 138 136 - 146 mmol/L CDR HISTORICAL RESULTS K, pl 3.7 3.3 - 4.9 mmol/L CDR HISTORICAL RESULTS Chloride 107 98 - 108 mmol/L CDR HISTORICAL RESULTS CO2 22 22 - 33 mmol/L CDR HISTORICAL RESULTS BUN 11 7 - 18 mg/dl CDR HISTORICAL RESULTS Glucose 75 70 - 140 mg/dl CDR HISTORICAL RESULTS Comment: Glucose is assumed to be non-fasting. ?? Fasting Glucose normal ranges are: 0 days - 2 months: ? 40 mg/dL - 100 mg/dL 2 months - 999 years: ?70 mg/dL - 99 mg/dL Creatinine 0.82 0.50 - 1.50 mg/dl CDR HISTORICAL RESULTS eGFR >60 ml/min/1.7 3 m2 CDR HISTORICAL RESULTS Comment: GFR Reference Range: = > 60 mL/min/1.73 m2 This result has been calculated assuming the patient is Non-. ??If the patient is , please multiply this result by 1.21. The GFR value is not recommended for medication dose adjustment for renal function, creatinine clearance values should be used. Calcium 9.5 8.5 - 10.5 mg/dl CDR HISTORICAL RESULTS Bilirubin 0.5 0.1 - 1.2 mg/dl CDR HISTORICAL RESULTS Protein, pl 7.2 6.0 - 8.5 g/dl CDR HISTORICAL RESULTS Alb 4.1 3.4 - 5.0 g/dl CDR HISTORICAL RESULTS Alk phos 68 38 - 126 IUnits/L CDR HISTORICAL RESULTS ALT 23 14 - 54 IUnits/L CDR HISTORICAL RESULTS AST 19 15 - 41 IUnits/L CDR HISTORICAL RESULTS Plasma 11/03/2015 12:0 5 PM CDT Antonio Morataya MD LAB BLOOD ORDERABLES Final Resul t CDR HISTORICAL RESULTS * Plasma C-reactive protein (11/03/2015 12:05 PM CDT) C-RP 7.0 0.00 - 10.00 mg/L CDR HISTORICAL RESULTS Plasma 11/03/2015 12:0 5 PM CDT Antonio Morataya MD LAB BLOOD ORDERABLES Final Resul t CDR HISTORICAL RESULTS * DISCHARGE LABORATORY CUMULATIVE REPORT (11/03/2015) Narrative 11/03/2015 Ordered by an unspecified provider. us Historical Provider LAB BLOOD ORDERABLES Abigail l Result documented in this encounter Visit Diagnoses Diagnosis Rheumatoid arthritis of multiple sites without rheumatoid factor (CMS/HCC) (HCC) documented in this encounter Care Teams Provider Contracting Consultant Relationship Specialty Start Date End Date Feliciano Dash MD PCP - General 07/13/15 03/07/16 documented as of this encounter
--- OUTSIDE RECORDS SUMMARY | 2024-04-29 19:25 | XMS_ITS | Encounter Summary ---
Author Organization [facility] Address [address] [place] [address] Care Team Providers Care Special Effects Designer Name Role Phone Feliciano Dash MD Primary Care Provider Encounter Details Date Type Department Care Team (Latest Contact Info) Description 09/30/2015 9:17 AM CDT Hospital Encounter [facility] OP Curtis Oseguera MD [address] [facility] [address] [address] Ovarian cyst; Encounter for preprocedural laboratory examination Social History Tobacco Use Types Packs/Day Years Used Date Smoking Tobacco: Never Alcohol Use Standard Drinks/Week Comments No 0 (1 standard drink = 0.6 oz pur e alcohol) Comments Unknown Sex and Gender Information Value Date Recorded Sex Assigned at Not on file 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 Gender Identity Female 08/14/2022 11:32 AM [...] Procedure Name Priority Date/Time Associated Diagnosis Comments THYROID PANEL Routine 09/30/2015 10:35 AM CDT CBC WITH AUTO DIFFERENTIAL Routine 09/30/2015 10:35 AM CDT HCG, BLOOD, QUANTITATIVE Routine 09/30/2015 10:35 AM CDT documented in this encounter Results * (ABNORMAL) Thyroid Panel (09/30/2015 10:35 AM CDT) TSH 0.26(L) 0.27 - 4.20 uIU/mL 09/30/2015 11:58 AM CDT [facility] [employer] HISTORICAL RESULTS Free T4 1.26 0.93 - 1.70 ng/dL 09/30/2015 11:58 AM CDT [facility] [employer] HISTORICAL RESULTS 09/30/2015 10:3 5 AM CDT 09/30/2015 11:11 AM CDT Curtis Oseguera MD LAB BLOOD ORDERABLES [facility] Result [facility] HISTORICAL RESULTS * (ABNORMAL) CBC with auto differential (09/30/2015 10:35 AM CDT) WBC 6.2 4.6 - 10.2 x10 3/ul 09/30/2015 11:17 AM CDT [facility] RBC 4.98(H) 3.76 - 4.80 x10 6/ul 09/30/2015 11:17 AM CDT [facility] HIST[facility] RESULTS Hemoglobin 14.1 11.0 - 15.0 g/dl Hct 43.0 33.0 - 43.0 % MCV 86.3 80.0 - 97.0 fl MCH 28.3 27.0 - 31.2 pg 09/30/2015 11:[address] [facility] MCHC 32.8 31.8 - 35.4 g/dl 09/30/2015 11:[address] [facility] RESULTS RDW 14.2 11.6 - 14.8 % 09/30/2015 11:[address] [facility] RESULTS Plt Count 318 124 - 400 x10 3/ul 09/30/2015 11:[address] [facility] RESULTS MPV 9.3 7.4 - 10.4 fl 09/30/2015 11:[address] [facility] Differential Method AUTOMATED DIFF --------- -- 09/30/2015 11:[address] [facility] RESULTS Neut % 59.7 37.0 - 85.0 % 09/30/2015 11:[address] [facility] RESULTS Immature Gran % 0.5 0.0 - 3.0 % 09/30/2015 11:[address] [facility]IST[facility] RESULTS Lymph % 30.9 5.0 - 45.0 % 09/30/2015 11:17 AM [employer] [facility] HISTOR[facility] RESULTS [place] % 6.6 3.0 - 15.0 % 09/30/2015 11:[address] [facility]IST[facility] RESULTS Eos % 1.0 0.0 - 7.0 % 09/30/2015 11:17 AM [employer] [facility] HISTORICAL RESULTS Baso % 1.3 0.0 - 2.0 % 09/30/2015 11:[address] [facility]IST[facility] RESULTS ABSOLUTE COUNTS ABSOLUTE COUNTS --------- -- 09/30/2015 11:[address] [facility] RESULTS Absolute Neuts (auto) 3.7 1.7 - 8.7 x10 3/ul 09/30/2015 11:17 AM [employer] [facility] [employer] [facility] Immature Gran # 0.0 0.0 - 0.3 x10 3/ul 09/30/2015 11:17 AM CDT [facility] HISTORICAL RESULTS Absolute Lymphs (auto) 1.9 0.2 - 4.6 x10 3/ul 09/30/2015 11:17 AM CDT [facility] HISTORICAL RESULTS Absolute Monos (auto) 0.4 0.1 - 1.5 x10 3/ul 09/30/2015 11:17 AM CDT [facility] HISTORICAL RESULTS Absolute Eos (auto) 0.1 0.0 - 0.7 x10 3/ul 09/30/2015 11:17 AM CDT [facility] HISTORICAL RESULTS Absolute Basos (auto) 0.1 0.0 - 0.2 x10 3/ul 09/30/2015 11:17 AM CDT [facility] HISTORICAL RESULTS 09/30/2015 10:3 5 AM CDT 09/30/2015 11:11 AM CDT Curtis Oseguera MD LAB BLOOD ORDERABLES [facility] Result [facility] HISTORICAL RESULTS * hCG, blood, quantitative (09/30/2015 10:35 AM CDT) Beta HCG, Quant < 0.1 0.0 - 1.0 mIU/mL 09/30/2015 11:56 AM CDT [facility] HISTORICAL RESULTS Comment: Weeks of preg ?BHCG ? Weeks of preg ? BHCG ?3 ? 5.8-71.2 ?10 ? 46,509-186,977 ?4 ? 9.5-750 ? 12 ? 27,832-210,612 ?5 ? 217-7,138 ? 14 ? 13,950-62,530 ?6 ? 158-31,795 ?15 ? 12,039-70,971 ?7 ?3,697-163,563 ?16 ?9,040-56,451 ?8 ? 32,065-149,571 ?17 ?8,175-55,868 ?9 ? 63,803-151,410 ?18 ?8,099-58,176 Post-menopause: ??0-8.3 ?METHOD: ??Jordy ECLIA Intended for the early detection of . ? 09/30/2015 10:3 5 AM CDT 09/30/2015 11:11 AM CDT us Curtis Oseguera MD LAB BLOOD ORDERABLES Fi nal Result Performing Organization Address City/State/[facility] Co de Phone Number [facility] HISTOR[facility] RESULTS documented in this encounter Visit Diagnoses Diagnosis Ovarian cyst Other and unspecified ovarian cyst Encounter for preprocedural laboratory examination documented in this encounter Care Teams Special Effects Designer Relationship Specialty Start Date End Date Feliciano Dash MD PCP - General 07/13/15 03/07/16 documented as of this encounter
--- OUTSIDE RECORDS SUMMARY | 2024-04-29 19:25 | XMS_ITS | Encounter Summary ---
Author Organization [facility] Facility Care Team Providers Care Sail Lay Out Worker Name Role Phone Feliciano Dash MD Primary Care Provider [phone] Encounter Details Date Type Department Care Team (Late st Contact Info) Description 06/29/2015 2:33 PM PELLET POST INSPECTOR - 06/29/2015 11:59 PM PELLET POST INSPECTOR Hospital Encounter [facility] CLINCONAntonio Ibrahim MD [address] [place] [address] Miriam Frye PA [address] [place] [address] Pain in joint; Other fatigue; Abnormal levels of other serum enzymes Social History Tobacco Use Types Packs/Day Years Used Date Smoking Tobacco: Never Alcohol Use Standard Drinks/Week Comments No 0 (1 standard drink = 0.6 oz pur e alcohol) Comments Unknown Sex and Gender Information Value Date Recorded Sex Assigned at Not on file Legal Sex Female 9:24 PM PELLET POST INSPECTOR Gender Identity Female 08/14/2022 11:32 AM CDT Sexual Orientation Straight 02/13/2023 7: 01 AM CDT documented as of this encounter Medications at Time of Discharge DULoxetine DR (CYMBALTA) 60 mg capsule take 1 capsule by oral route every day 0 0 06/29/2015 10/18/202 1 SUMAtriptan (SUMAtriptan) 6 mg/0.5 mL injection inject 0.5 milliliter by subcutaneous route once; may repeat in 1 hour if pain returns/increases in severity; (max2 doses/24 hours) 0 0 06/29/2015 7 documented as of this encounter Plan of Treatment Not on file documented as of this encounter Procedures Procedure Name Priority Date/Time Associated Diagnosis Comments SERUM THYROPEROXIDASE AB Routine 06/29/2015 2:43 PM PELLET POST INSPECTOR SERUM THYROGLOBULIN AB Routine 6 2:43 PM PELLET POST INSPECTOR SERUM RHEUMATOID FACTOR Routine 06/29/19 16 2:43 PM PELLET POST INSPECTOR SERUM RAPID PLASMA REAGIN (RPR) Routine 06/29/2015 2:43 PM PELLET POST INSPECTOR SERUM JAELYN-1 AB Routine 06/29/2015 2:43 PM PELLET POST INSPECTOR SERUM HEPATITIS C AB Routine 06/29/2015 2:43 PM PELLET POST INSPECTOR SERUM HEPATITIS B SURFACE AG Routine 06/29/2015 2:43 PM PELLET POST INSPECTOR SERUM HEPATITIS B CORE AB Routine 06/29/2015 2:43 PM PELLET POST INSPECTOR SERUM DOUBLE-STRANDED DNA AB Routine 06/29/2015 2:43 PM PELLET POST INSPECTOR SERUM CYCLIC CITRULLINATED PEPTIDE IGG 3RD GENERATION Routine 06/29/2015 2:43 PM PELLET POST INSPECTOR SERUM COMPLEMENT Routine 06/29/2015 2:43 PM PELLET POST INSPECTOR SERUM [id number] I, IGA Routine 06/29/2015 2:43 PM PELLET POST INSPECTOR SERUM [id number] I IGM Routine 06/29/2015 2:43 PM PELLET POST INSPECTOR SERUM ANTINUCLEAR AB (ASHLEY) Routine 06/29/2015 2:43 PM PELLET POST INSPECTOR SERUM ANTI-EXTRACTABLE NUCLEAR AG (JUANI), SS-B AB Routine 06/29/2015 2:43 PM PELLET POST INSPECTOR SERUM ANTI-EXTRACTABLE NUCLEAR AG (JUANI), SS-A AB Routine 06/29/2015 2:43 PM PELLET POST INSPECTOR SERUM ANTI-EXTRACTABLE NUCLEAR AG (JUANI), SM/K 9 HANDLER/ DEPUTY AB Routine 06/29/2015 2:43 PM PELLET POST INSPECTOR SERUM ANTICARDIOLIPIN AB, IGG, IGM Routine 06/29/2015 2:43 PM PELLET POST INSPECTOR SERUM ANTICARDIOLIPIN AB, IGA Routine 06/29/2015 2:43 PM PELLET POST INSPECTOR SERUM ANGIOTENSIN-CONVERTING ENZYME (CLEMENTINE) Routine 06/29/2015 2:43 PM PELLET POST INSPECTOR PLASMA URIC ACID Routine 06/29/2015 2:43 PM PELLET POST INSPECTOR PLASMA THYROXINE (T4), FREE Routine 06/29/2015 2:43 PM PELLET POST INSPECTOR PLASMA THYROID-STIMULATING HORMONE (TSH) Routine 06/29/2015 2:43 PM PELLET POST INSPECTOR PLASMA LUPUS ANTICOAGULANT Routine 06/29/2015 2:43 PM PELLET POST INSPECTOR PLASMA LIPASE Routine 06/29/2015 2:43 PM PELLET POST INSPECTOR PLASMA CREATINE KINASE (CK) Routine 06/29/2015 2:43 PM PELLET POST INSPECTOR PLASMA C-REACTIVE PROTEIN Routine 06/29/2015 2:43 PM PELLET POST INSPECTOR PLASMA COMPREHENSIVE METABOLIC PANEL Routine 06/29/2015 2:43 PM PELLET POST INSPECTOR PLASMA COMPLEMENT C4 Routine 06/29/2015 2:43 PM PELLET POST INSPECTOR PLASMA COMPLEMENT C3 Routine 06/29/2015 2:43 PM PELLET POST INSPECTOR PLASMA AMYLASE Routine 06/29/2015 2:43 PM PELLET POST INSPECTOR BLOOD QUANTIFERON GOLD TB Routine 06/29/2015 2:43 PM PELLET POST INSPECTOR BLOOD ERYTHROCYTE SEDIMENTATION RATE (ESR) Routine 06/29/2015 2:43 PM PELLET POST INSPECTOR BLOOD DIRECT ANTIGLOBULIN TEST Routine 06/29/2015 2:43 PM PELLET POST INSPECTOR BLOOD CELL COUNT (CBC), MORPHOLOGIC EXAM Routine 06/29/2015 2:43 PM PELLET POST INSPECTOR URINALYSIS Routine 06/29/2015 2:43 PM PELLET POST INSPECTOR DISCHARGE LABORATORY CUMULATIVE REPORT 06/29/2015 documented in this encounter Results * Urinalysis (06/29/2015 2:43 PM PELLET POST INSPECTOR) Color, ur Yellow Colorless,St raw,Yellow HISTORICAL RESULTS Clarity, ur Clear Clear HISTORIC AL RESULTS Specific gravity, ur 1.021 1.005 - 1.030 HISTORICAL RESULTS pH, ur 5.0 5.0 - 8.0 HISTORICAL RESULTS Leukocyte esterase, ur Negative Negative drake/mcl HISTORICAL RESULTS Nitrites, ur Negative Negative HISTORI ESTELLE RESULTS Protein, ur Negative Negative mg/dl HISTORICAL RESULTS Glucose, ur, quant Normal Normal mg/dl HISTORICAL RESULTS Ketones, ur, quant Negative Negative mg/dl HISTORICAL RESULTS Urobilinogen, quant, ur Normal Normal mg/dl HISTORICAL RESULTS Bilirubin, ur Negative Negative mg/dl HISTORICAL RESULTS U Blood Negative Negative HISTORICAL RESULTS Urine 06/29/2015 2:43 PM PELLET POST INSPECTOR Miriam VALLE LAB BLOOD ORDERAB LES Final Result HISTORICAL RESULTS * Blood erythrocyte sedimentation rate (ESR) (06/29/2015 2:43 PM PELLET POST INSPECTOR) Erythrocyte sedimentation rate 9.0 0.0 - 20.0 mm/hr HISTORICAL RESULTS Blood specimen (specimen) 06/29/2015 2:43 PM PELLET POST INSPECTOR Miriam VALLE LAB BLOOD ORDERAB LES Final Result HISTORICAL RESULTS * (ABNORMAL) Blood cell count (CBC), morphologic exam (06/29/2015 2:43 PM PELLET POST INSPECTOR) WBC 8.9 4.5 - 11.0 K/cumm HISTORICAL RESULTS RBC 5.03 3.80 - 5.40 M/cumm HISTORICAL RESULTS Hgb 13.4 11.5 - 16.0 g/dl HISTORICAL RESULTS Hct 42.3 34.0 - 48.0 % HISTORICAL RESULTS MCV 83.9 80.0 - 100.0 fl HISTORICAL RESULTS MCH 26.7(L) 27.0 - 33.0 pg HISTORICAL RESULTS MCHC 31.8(L) 32.0 - 36.0 g/dl HISTORICAL RESULTS Rdw 14.1 11.5 - 14.5 % HISTORICAL RESULTS Platelets 475(H) 140 - 400 K/cumm HISTORICAL RESULTS MPV 7.6 7.4 - 10.4 fl HISTORICAL RESULTS Neutrophils 63.6 42.0 - 75.0 % HISTORICAL RESULTS Lymphocytes 30.8 21.0 - 51.0 % HISTORICAL RESULTS Monos 3.8 2.0 - 9.0 % HISTORICAL RESULTS Eosinophils 0.9 0.0 - 10.0 % HISTORICAL RESULTS Basophils 0.9 0.0 - 1.0 % HISTORICAL RESULTS Neutrophils, abs 5.7 1.8 - 7.7 K/cumm HISTORICAL RESULTS Lymphocytes, abs 2.7 1.0 - 4.8 K/cumm HISTORICAL RESULTS Monocytes, absolute 0.3 0.0 - 0.8 K/cumm HISTORICAL RESULTS Eosinophils, abs 0.1 0.0 - 0.5 K/cumm HISTORICAL RESULTS Basophils, abs 0.1 0.0 - 0.2 K/cumm HISTORICAL RESULTS Blood specimen (specimen) 06/29/2015 2:43 PM PELLET POST INSPECTOR Miriam VALLE LAB BLOOD ORDERAB LES Final Result HISTORICAL RESULTS * Serum thyroperoxidase ab (06/29/2015 2:43 PM PELLET POST INSPECTOR) Pathologist [facility] Thyroglobulin peroxidase ab 2.0 0.0 - 9.0 IUnits/ml HISTORICAL RESULTS Serum 06/29/2015 2:43 PM PELLET POST INSPECTOR Miriam VALLE LAB BLOOD ORDERAB LES Final Result Performing Organization Address [facility] Co de Phone Number HISTORICAL RESULTS * Serum Hepatitis B surface ag (06/29/2015 2:43 PM PELLET POST INSPECTOR) HBV surface ag Non-Reacti ve Non-Reacti ve HISTORICAL RESULTS Serum 06/29/2015 2:43 PM PELLET POST INSPECTOR Miriam VALLE LAB BLOOD ORDERAB LES Final Result Performing Organization Address [facility] Phone Number HISTORICAL RESULTS * Serum Hepatitis C ab (06/29/2015 2:43 PM PELLET POST INSPECTOR) HCV ab Non-Reacti ve Non-Reacti ve HISTORICAL RESULTS Serum 06/29/2015 2:43 PM PELLET POST INSPECTOR Miriam VALLE LAB BLOOD ORDERAB LES Final Result Performing Organization Address [facility] de Phone Number HISTORICAL RESULTS * (ABNORMAL) Plasma comprehensive metabolic panel (06/29/2015 2:43 PM PELLET POST INSPECTOR) Sodium 140 136 - 146 mmol/L HISTORICAL RESULTS K, pl 3.6 3.3 - 4.9 mmol/L HISTORICAL RESULTS Chloride 106 98 - 108 mmol/L HISTORICAL RESULTS CO2 20(L) 22 - 33 mmol/L HISTORICAL RESULTS BUN 15 7 - 18 mg/dl HISTORICAL RESULTS Glucose 74 70 - 140 mg/dl HISTORICAL RESULTS Comment: Glucose is assumed to be non-fasting. ?? Fasting Glucose normal ranges are: 0 days - 2 months: ? 40 mg/dL - 100 mg/dL 2 months - 999 years: ?70 mg/dL - 99 mg/dL Creatinine 0.75 0.50 - 1.50 mg/dl HISTORICAL RESULTS eGFR >60 ml/min/1.7 3 m2 HISTORICAL RESULTS Comment: GFR Reference Range: = > 60 mL/min/1.73 m2 This result has been calculated assuming the patient is Non-. ??If the patient is , please multiply this result by 1.21. The GFR value is not recommended for medication dose adjustment for renal function, creatinine clearance values should be used. Calcium 9.2 8.5 - 10.5 mg/dl HISTORICAL RESULTS Bilirubin 0.5 0.1 - 1.2 mg/dl HISTORICAL RESULTS Protein, pl 7.4 6.0 - 8.5 g/dl HISTORICAL RESULTS Alb 4.0 3.4 - 5.0 g/dl HISTORICAL RESULTS Alk phos 72 38 - 126 IUnits/L HISTORICAL RESULTS ALT 34 14 - 54 IUnits/L HISTORICAL RESULTS AST 25 15 - 41 IUnits/L HISTORICAL RESULTS Plasma 06/29/2015 2:43 PM PELLET POST INSPECTOR Miriam VALLE LAB BLOOD ORDERAB LES Final Result Performing Organization Address [facility] Co de Phone Number HISTORICAL RESULTS * Plasma C-reactive protein (06/29/2015 2:43 PM PELLET POST INSPECTOR) C-RP 2.8 0.00 - 10.00 mg/L HISTORICAL RESULTS Comment:Please Note: As of 0 05/29/2011, C-Reactive Protein testing is performed at [facility] Laboratory. The Reference Range has changed. Plasma 06/29/2015 2:43 PM PELLET POST INSPECTOR Miriamgui Frye LA LAB BLOOD ORDERAB LES Final Result Performing Organization Address [facility] Co de Phone Number HISTORICAL RESULTS * Plasma thyroxine (T4), free (06/29/2015 2:43 PM PELLET POST INSPECTOR) Free T4 0.80 0.58 - 1.64 ng/dl HISTORICAL RESULTS Comment: Reference ranges for women: 1st trimester: ?0.52-1.10 ng/dL 2nd trimester: ?? 0.45-0.99 ng/dL 3rd trimester: ?0.48-0.95 ng/dL Plasma 06/29/2015 2:43 PM PELLET POST INSPECTOR Miriam VALLE LAB BLOOD ORDERAB LES Final Result Performing Organization Address [facility] de Phone Number HISTORICAL RESULTS * (ABNORMAL) Plasma creatine kinase (CK) (06/29/2015 2:43 PM PELLET POST INSPECTOR) CK 22(L) 38 - 234 IUnits/L HISTORICAL RESULTS Plasma 06/29/2015 2:43 PM PELLET POST INSPECTOR Miriam VALLE LAB BLOOD ORDERAB LES Final Result Performing Organization Address [facility] Phone Number HISTORICAL RESULTS * (ABNORMAL) Plasma thyroid-stimulating hormone (TSH) (06/29/2015 2:43 PM PELLET POST INSPECTOR) TSH 0.22(L) 0.34 - 5.60 mcIUnits/ ml HISTORICAL RESULTS Comment: TSH Interpretive Guide: : ??TSH surges within the first 15 to 60 minutes of life reaching peak levels at about 30 minutes. ??Values then decline rapidly and after 1 week are within the Adult Normal Range . Adult: Hyperthyroid ?< ?? 0.1 ?mcIUnits/mL Euthyroid ?0.34 ??- ??5.60 ? mcIUnits/mL Hypothyroid ? > 12.0 ? mcIUnits/mL Plasma 06/29/2015 2:43 PM PELLET POST INSPECTOR Miriam VALLE LAB BLOOD ORDERAB LES Final Result Performing Organization Address [facility] de Phone Number HISTORICAL RESULTS * Plasma complement C4 (06/29/2015 2:43 PM PELLET POST INSPECTOR) Complement C4 32 18 - 55 mg/dl HISTORICAL RESULTS Comment:Please Note: As of N ov2011, the reference range has changed. Plasma 06/29/2015 2:43 PM PELLET POST INSPECTOR Miriam VALLE LAB BLOOD ORDERAB LES Final Result Performing Organization Address [facility] de Phone Number HISTORICAL RESULTS * (ABNORMAL) Plasma lipase (06/29/2015 2:43 PM PELLET POST INSPECTOR) Lip 83(H) 8 - 57 Units/L HISTORICAL RESULTS Plasma 06/29/2015 2:43 PM PELLET POST INSPECTOR Miriam VALLE LAB BLOOD ORDERAB LES Final Result Performing Organization Address [facility] de Phone Number HISTORICAL RESULTS * Plasma uric acid (06/29/2015 2:43 PM PELLET POST INSPECTOR) [facility] [address] Uric acid 4.7 2.5 - 6.2 mg/dl HISTORICAL RESULTS Plasma 06/29/2015 2:43 PM PELLET POST INSPECTOR Miriam VALLE LAB BLOOD ORDERAB LES Final Result Performing Organization Address [facility] de Phone Number HISTORICAL RESULTS * (ABNORMAL) Plasma amylase (06/29/2015 2:43 PM PELLET POST INSPECTOR) Pathologist [facility] [address], [address](H) 28 - 100 IUnits/L HISTORICAL RESULTS Plasma 06/29/2015 2:43 PM PELLET POST INSPECTOR Miriam VALLE LAB BLOOD ORDERAB LES Final Result Performing Organization Address [facility] Co de Phone Number HISTORICAL RESULTS * (ABNORMAL) Plasma complement C3 (06/29/2015 2:43 PM PELLET POST INSPECTOR) Pathologist [facility] Complement C3 162(H) 79 - 152 mg/dl HISTORICAL RESULTS Plasma 06/29/2015 2:43 PM PELLET POST INSPECTOR Miriam VALLE LAB BLOOD ORDERAB LES Final Result Performing Organization Address [facility] Co de Phone Number HISTORICAL RESULTS * Blood quantiferon gold TB (06/29/2015 2:43 PM PELLET POST INSPECTOR) Ignore 0.040 Units/ml HISTORICAL RESULTS mitogen-NIL >10.00 IUnits/ml HISTORIC AL RESULTS TB-NIL <0.00 IUnits/ml HISTORICAL RESULTS Comment: The Nil tube value is used [...] IU/mL. For additional information, please refer to http://education.[employer]/faq/QFT (This link is being provided for informational/ educational purposes only.) [facility] [address] [place], [place] ??[address] BERT FORTE DO,MPH Quantiferon Gold TB Negative NEGATIVE HISTORICAL RESULTS Comment: Negative test result. M. tuberculosis complex infection unlikely. Blood specimen (specimen) 06/29/2015 2:43 PM PELLET POST INSPECTOR Miriam VALLE LAB BLOOD ORDERAB LES Final Result HISTORICAL RESULTS * Serum thyroglobulin ab (06/29/2015 2:43 PM PELLET POST INSPECTOR) Pathologist [facility] Anti-thyroglobulin , quant <1.8 <4.0 IUnits/ml HISTORICAL RESULTS Comment: ADDITIONAL INFORMATION The thyroglobulin antibody testing method is an immunoenzymatic assay manufactured by [employer] and performed on the [employer] Blue DXI 800. Values obtained from different assay methods or kits may be different and cannot be used interchangeably. The results cannot be interpreted as absolute evidence for the presence or absence of malignant disease. Serum 06/29/2015 2:43 PM PELLET POST INSPECTOR [facility] Eunice Frye [place] LAB BLOOD ORDERAB LES Final Result Performing Organization Address [facility] Phone Number HISTORICAL RESULTS * Serum Hepatitis B core ab (06/29/2015 2:43 PM PELLET POST INSPECTOR) HBV core ab Negative Negative HISTORIC AL RESULTS Serum 06/29/2015 2:43 PM PELLET POST INSPECTOR Miriam Frye LA LAB BLOOD ORDERAB LES Final Result Performing Organization Address [facility] Phone Number HISTORICAL RESULTS * Serum anti-extractable nuclear ag (JUANI), SS-B ab (06/29/2015 2:43 PM PELLET POST INSPECTOR) Anti-JUANI, SS-B <1.0 NEG <1.0NEG AI HISTORICAL RESULTS Comment: Test performed at [facility] [address] ??[phone] BERT FORTE DO,MPH Serum 06/29/2015 2:43 PM PELLET POST INSPECTOR [facility] Eunice Frye [place] LAB BLOOD ORDERAB LES Final Result Performing Organization Address [facility] de Phone Number HISTORICAL RESULTS * Serum anti-extractable nuclear ag (JUANI), SS-A ab (06/29/2015 2:43 PM PELLET POST INSPECTOR) Pathologist [facility] Anti-JUANI, SS-A <1.0 NEG <1.0NEG AI HISTORICAL RESULTS Comment: Test performed at [facility] [address] ??[phone] BERT FOTRE DO,MPH Serum 06/29/2015 2:43 PM PELLET POST INSPECTOR Miriam VALLE LAB BLOOD ORDERAB LES Final Result HISTORICAL RESULTS * Serum antinuclear ab (ASHLEY) (06/29/2015 2:43 PM PELLET POST INSPECTOR) ASHLEY, qual Negative NEGATIVE HISTORICAL RESULTS Comment: Test performed at [facility] [address] ??[phone] BERT FORTE DO,MPH Serum 06/29/2015 2:43 PM PELLET POST INSPECTOR Miriam Frye [place] LAB BLOOD ORDERAB LES Final Result Performing Organization Address [facility] Co de Phone Number HISTORICAL RESULTS * Serum anticardiolipin ab, IgG, IgM (06/29/2015 2:43 PM PELLET POST INSPECTOR) Pathologist [facility] Cardiolipin, IgG 1.2 0.0 - 14.9 GPL U/ml HISTORICAL RESULTS Comment:Interpretive Data <1 5 GPL U/mL Negative 15-19 GPL U/mL Indeterminate 20-39 GPL U/mL Low Positive 40-80 GPL U/mL Medium Positive >80 GPL U/mL High Positive Current interpretive data was last revised on 2010. Cardiolipin, IgM 6.1 0.0 - 12.4 MPL U/ml HISTORICAL RESULTS Comment: Interpretive Data <12.5 ?? MPL U/mL ?Negative 12.5-19 MPL U/mL ?Indeterminate 20-39 ?? MPL U/mL ?Low Positive 40-80 ?? MPL U/mL ?Medium Positive >80 ? MPL U/mL ?High Positive Anticardiolipin antibodies are associated with certain clinical events including arterial and venous thromboemboli, morbidity, and thrombocytopenia. ??However, detection of low levels of anticardiolipin antibodies occurs in both healthy individuals and patients with co-morbidities not associated with the antiphospholipid antibody (APA) syndrome including inflammatory and infectious conditions. ??In order to improve specificity, the International Congress on Antiphospholipid Antibodies recommends a threshold of > 40 GPL units for IgG JULIANNE and > 40 MPL units for IgM JULIANNE, obtained twice, at least 12 weeks apart, to support a diagnosis of antiphospholipid syndrome. ??In addition, the International Congress on Antiphospholipid Antibodies does not recommend testing for IgA JULIANNE since this isotype rarely occurs in the absence of IgG or IgM JULIANNE, and the association of an isolated IgA JULIANNE with APA clinical signs and symptoms is weak. ??The presence of rheumatoid factor may lead to false-positive IgM anticardiolipin results. ??The following results were obtained with the [employer] IgG and IgM III FRIDA. ??Cardiolipin IgG and IgM values obtained with different manufacturers' assay methods may not be used interchangeably. Current interpretive data was last revised on 2010. Serum 06/29/2015 2:43 PM PELLET POST INSPECTOR Miriam VALLE LAB BLOOD ORDERAB LES Final Result HISTORICAL RESULTS * Serum anticardiolipin ab, IgA (06/29/2015 2:43 PM PELLET POST INSPECTOR) Cardiolipin, IgA 0.4 0.0 - 11.9 APL U/ml HISTORICAL RESULTS Comment: Interpretive Data <12 ?? APL U/mL ? Negative 12-19 APL U/mL ? Indeterminate 20-39 APL U/mL Low Positive 40-80 APL U/mL ? Medium Positive >80 ?? APL U/mL ? High Positive The International Congress on Antiphospholipid Antibodies does not recommend testing for IgA JULIANNE since this isotype rarely occurs in the absence of IgG or IgM JULIANNE, and the association of an isolated IgA JULIANNE with APA clinical signs and symptoms is weak. ??The following results were obtained with the [employer] IgA III FRIDA. ??Caridolipin IgA values obtained with different manufacturers' assay methods may not be used interchangeably. Current interpretive data was last revised on 2010. <13 APL U/mL ?Antibody not detected > or = 13 and <30 APL U/mL ? Low positive antibody detected 30 - 80 APL U/mL ? Medium positive antibody detected >80 APL U/mL ?High positive antibody detected Current interpretive data was last revised on 2008. Serum 06/29/2015 2:43 PM PELLET POST INSPECTOR Miriam VALLE LAB BLOOD ORDERAB LES Final Result Performing Organization Address [facility] de Phone Number HISTORICAL RESULTS * Serum anti-extractable nuclear ag (JUANI), SM/K 9 HANDLER/ DEPUTY ab (06/29/2015 2:43 PM PELLET POST INSPECTOR) Anti-JUANI, SM <1.0 NEG <1.0NEG AI HISTORICAL RESULTS JUANI, SM/K 9 HANDLER/ DEPUTY Ab <1.0 NEG <1.0NEG AI HISTORICAL RESULTS Comment: Test performed at [facility] [address] ??[phone] BERT FORTE DO,MPH Serum 06/29/2015 2:43 PM PELLET POST INSPECTOR Miriam VALLE LAB BLOOD ORDERAB LES Final Result Performing Organization Address [facility] de Phone Number HISTORICAL RESULTS * Serum Jaelyn-1 ab (06/29/2015 2:43 PM PELLET POST INSPECTOR) Anti-JAELYN-1 <1.0 NEG <1.0NEG AI HISTORICAL RESULTS Comment: Test performed at [facility] [address] ??[phone] BERT FORTE DO,MPH Serum 06/29/2015 2:43 PM PELLET POST INSPECTOR Miriam Frye [place] LAB BLOOD ORDERAB LES Final Result Performing Organization Address [facility] de Phone Number HISTORICAL RESULTS * Serum double-stranded DNA ab (06/29/2015 2:43 PM PELLET POST INSPECTOR) [facility] [address] Anti-double stranded DNA, quant <1 IUnits/ml HISTORIC AL RESULTS Comment: IU/mL ? Interpretation ? < or = 4 ?Negative ? 5-9 ? Indeterminate ? > or = 10 ?? Positive Test performed at [facility] [place] [id number] [place], [place] ??[phone] BERT FORTE DO,MPH Serum 06/29/2015 2:43 PM PELLET POST INSPECTOR Miriam VALLE LAB BLOOD ORDERAB LES Final Result Performing Organization Address [facility] de Phone Number HISTORICAL RESULTS * (ABNORMAL) Serum gbwj-6-dysqetrjzonl I IgM (06/29/2015 2:43 PM PELLET POST INSPECTOR) [facility] [address] Beta-2 glycoprotein I, IgG 14.0(H) <10.0(Neg ative) Units/ml HISTORICAL RESULTS Comment:Interpretation: Bord barbra (10.0-14.9) Beta-2 glycoprotein I, IgM <4.0 <10.0(Neg ative) Units/ml HISTORICAL RESULTS Serum 06/29/2015 2:43 PM PELLET POST INSPECTOR Miriam Frye [place] LAB BLOOD ORDERAB LES Final Result Performing Organization Address [facility] de Phone Number HISTORICAL RESULTS * Serum angiotensin-converting enzyme (CLEMENTINE) (06/29/2015 2:43 PM PELLET POST INSPECTOR) [facility] [address] CLEMENTINE 32 10 - 55 Units/L HISTORICAL RESULTS Serum 06/29/2015 2:43 PM PELLET POST INSPECTOR Miriam VALLE LAB BLOOD ORDERAB LES Final Result HISTORICAL RESULTS * Plasma lupus anticoagulant (06/29/2015 2:43 PM PELLET POST INSPECTOR) Prothrombin time (PT) 10.7 9.2 - 13.0 seconds HISTORICAL RESULTS INR 0.99 0.90 - 1.20 HISTORICAL RESULTS Comment: Interpretive Data Inpatient therapeutic ranges* Atrial fibrillation ?2.0-3.0 INR Venous thrombo-embolism ?2.0- 3.0 INR Bioprosthetic heart valve ?* Mechanical heart valve, bileaflet or tilting disk,aortic position ? 2.0-3.0 INR All other,or bileaflet or tilting disk, in mitral position ? 2.5-3.5 INR *See the pharmacy resource directory (PHRED) for an updated copy of the Tool Book at [email or web address] Current Interpretive Data was last revised 2011. APTT 29.5 25.0 - 37.0 seconds HISTORICAL RESULTS Comment:Interpretive Data Th erapeutic heparin range:60.0 - 94.0 sec based on correlation with therapeutic heparin activity range of 0.3 -0.7 Units/mL. Current interpretive data was last revised on 2011. PTT 33.5 <=39.0 seconds HISTORICAL RESULTS Lupus anticoagulant, DRVVT, screen ratio 0.84 0.00 - 1.20 ratio HISTORICAL RESULTS Lupus anticoagulant, phospholipid neutralization Negative HISTORICAL RESULTS Comment: Lupus Anticoagulant Interpretation: Lupus anticoagulants (LA) are acquired autoantibodies that interfere with invitro clotting in a phospholipid-dependent manner. Routine aPTT reagents are not sensitive to inhibition by LA, and should not be used as a screening test. ??The laboratory follows ISTH 2009 guidelines (Pengo,2009) for LA testing and interpretation: Two sensitive methods performed in parallel improve sensitivity. One activates the intrinsic pathway (LA-PTT) and one activates the common pathway (dilute Ketan Venom Time dRVVT). Each method begins with a screening step, and if not prolonged for both tests, no further testing is performed and the interpretation is: NO LA DETECTED. If either screening test is prolonged, then additional steps are performed to provide specificity. A POSITIVE occurs if either or both tests produce a positive confirm result. To support a clinical suspicion of antiphospholipid syndrome, persistence of a positive LA result should be confirmed by repeated testing at least 12 weeks later (Rio, 2006). An INDETERMINATE result indicates LA cannot be confirmed or ruled out due to the possible presence of anticoagulant effect, factor deficiency, very weak LA, or factor inhibitors. FALSE POSITIVE causes of LA include autoantibodies to specific factors and IV or PO directed anticoagulants, both associated with increased bleeding. Clinical correlation required. References:1) Charlene V, Betina A, Maia JH, Ortressa TL, Bindu M, De Tiki PG. Update of the guidelines for lupus anticoagulant detection. J Thromb Haemost. 2009;7:1737- 1740. 2) Rio S. et al. International consensus statement on an update of the classification criteria for definite antiphospholipid syndrome (APS). J Thromb Haemost. 2006;4:295-306. Current interpretive data was last revised on 2013 Plasma 06/29/2015 2:43 PM PELLET POST INSPECTOR Miriam VALLE LAB BLOOD ORDERAB LES Final Result HISTORICAL RESULTS * Serum Csox-4-meflvdpsmivq I, IgA (06/29/2015 2:43 PM PELLET POST INSPECTOR) Beta-2 glycoprotein I, IgA <4.0 <10.0(Nega tive) Units/ml HISTORICAL RESULTS Serum 06/29/2015 2:43 PM PELLET POST INSPECTOR Miriam VALLE LAB BLOOD ORDERAB LES Final Result Performing Organization Address [facility] Co de Phone Number HISTORICAL RESULTS * Serum rheumatoid factor (06/29/2015 2:43 PM PELLET POST INSPECTOR) [facility] [address] Rheumatoid factor, quant 9 <14 IUnits/ml HISTORICAL RESULTS Comment: Test performed at [facility] [address] ??[id number] BERT FORTE DO,MPH Serum 06/29/2015 2:43 PM PELLET POST INSPECTOR Miriam VALLE LAB BLOOD ORDERAB LES Final Result Performing Organization Address [facility] de Phone Number HISTORICAL RESULTS * Serum cyclic citrullinated peptide IgG 3rd generation (06/29/2015 2:43 PM PELLET POST INSPECTOR) [facility] [address] CCP3 IgG <15.6 0.0 - 19.0 units HISTORICAL RESULTS Comment: Interpretive Data The following results were obtained with the Signature Quanta Lite CCP3 IgG FRIDA. ??Anti-CCP values obtained with the different manufacturers' assay methods may not be used interchangeably. The magnitude of the reported IgG levels cannot be correlated to an endpoint titer. Reference ?Result Interpretation ??0-19 Units ? Negative 20-39 Units ? Weak Positive 40-59 Units ? Moderate Positive 60 or above Units ?? Strong Positive Current interpretive data was last revised on 2006. Serum 06/29/2015 2:43 PM PELLET POST INSPECTOR Result [facility] Miriam VALLE LAB BLOOD ORDERAB LES Final Result Performing Organization Address City/[facility] Co de Phone Number HISTORICAL RESULTS * Serum rapid plasma reagin (RPR) (06/29/2015 2:43 PM PELLET POST INSPECTOR) [facility] [address] RPR Nonreactive HISTORIC AL RESULTS Serum 06/29/2015 2:43 PM PELLET POST INSPECTOR MiriamKeyanna VALLE LAB BLOOD ORDERAB LES Final Result HISTORICAL RESULTS * (ABNORMAL) Serum complement (06/29/2015 2:43 PM PELLET POST INSPECTOR) Complement hemolytic 149(H) 63 - 145 HISTORICAL RESULTS Serum 06/29/2015 2:43 PM PELLET POST INSPECTOR Miriam Eunice VALLE LAB BLOOD ORDERAB LES Final Result Performing Organization Address [facility] Co de Phone Number HISTORICAL RESULTS * Blood direct antiglobulin test (06/29/2015 2:43 PM PELLET POST INSPECTOR) Wang, direct, IgG Negative HISTORICAL RESULTS Wang, direct, complement Negative HISTORICAL RESULTS Blood specimen (specimen) 06/29/2015 2:43 PM PELLET POST INSPECTOR MiriamKeyanna VALLE LAB BLOOD ORDERAB LES Final Result Performing Organization Address [facility] Co de Phone Number HISTORICAL RESULTS * DISCHARGE LABORATORY CUMULATIVE REPORT (06/29/2015) Narrative 06/29/2015 Ordered by an unspecified provider. Historical Provider LAB BLOOD ORDERABLES Abigail l Result documented in this encounter Visit Diagnoses Diagnosis Pain in joint Other fatigue Abnormal levels of other serum enzymes documented in this encounter Care Teams Sail Lay Out Worker Relationship Specialty Start Date End Date Feliciano Dash MD PCP - General 06/29/15 07/12/15 documented as of this encounter
--- OUTSIDE RECORDS SUMMARY | 2024-04-29 19:25 | XMS_ITS | Encounter Summary ---
Author Organization [facility] logy Address [address] [place] [address] Phone Care Team Providers Care Acidizer Water Well Name Role Phone Isaiah Quiros MD Unavailable Isaiah Quiros MD Primary Care Provider [phone] Kumar CARRILLO MD, Cash Howard Unavailable [phone] Reason for Visit * Reason Onset Date Comments González VALLE Started 08/01/2018 Encounter Details Date Type Department Care Team (Late st Contact Info) Description 08/01/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 documented in this encounter Plan of Treatment Not on file documented as of this encounter Visit Diagnoses Not on filedocumented in this encounter Care Teams Acidizer Water Well Relationship Specialty Start Date End Date Isaiah Quiros MD [address] [place] [address] PCP - General Internal Medicine 04/01/17 06/02/20 Isaiah Quiros MD [address] [place] [address] Internal Medicine 02/18/17 03/19/21 Cash Heath III, MD [address] [facility] [address] [place] [address] Rheumatology 04/12/17 documented as of this encounter
--- OUTSIDE RECORDS SUMMARY | 2024-04-29 19:25 | XMS_ITS | Encounter Summary ---
Author Organization [facility] Address [address] [place] [address] Care Team Providers Care Parcel Post Delivery Name Role Phone Feliciano Dash MD Primary Care Provider [phone] Encounter Details Date Type Department Care Team (Late st Contact Info) Description 09/08/2015 8:02 AM CDT Hospital Encounter [facility] OP Curtis Oseguera MD [address] 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 Gender Identity Female 08/14/2022 11:32 AM CDT Sexual Orientation Straight 02/13/2023 7: 01 AM CDT documented as of this encounter Medications at Time of Discharge DULoxetine DR (CYMBALTA) 60 mg capsule take 1 capsule by oral route every day 0 0 06/29/2015 1 hyoscyamine (OSCIMIN) 0.125 mg Take 0.125 mg by mouth every 3 hours 08/05/2015 2 SUMAtriptan (SUMAtriptan) 6 mg/0.5 mL injection inject 0.5 milliliter by subcutaneous route once; may repeat in 1 hour if pain returns/increases in severity; (max2 doses/24 hours) 0 0 06/29/2015 7 documented as of this encounter Plan of Treatment Not on file documented as of this encounter Procedures Procedure Name Priority Date/Time Associated Diagnosis Comments US PELVIS W ENDOVAGINAL Routine 09/08/2015 8:04 AM CDT documented in this encounter Results * US Pelvis W Endovaginal (09/08/2015 8:04 AM CDT) Anatomical Region Laterality Modality Pelvis N/A Ultrasound 09/08/2015 8:04 AM CDT Impressions 09/08/2015 5:24 PM CDT ?? 1. ??Right adnexal simple cyst measuring 4 cm, most likely ovarian. 2. ??Left ovarian simple cyst measuring 2.2 cm. Follow-up pelvic ultrasound is recommended in 6 months to evaluate for resolution. THIS IS AN ELECTRONICALLY VERIFIED REPORT 09/08/2015 5:20 PM: ??Genaro Blanc M.D. ?? Genaro Blanc M.D. NH:mo 05:20 PM 05:[address] [facility] [EOD] Narrative 09/08/2015 5:24 PM CDT EXAMINATION: ??Pelvic ultrasound HISTORY: ??Follow-up ovarian cyst noted on outside CT. TECHNIQUE: ??Transabdominal and transvaginal camarena-scale, color and spectral Doppler ultrasound evaluation of the pelvis. FINDINGS: ??Comparison made with CT abdomen and pelvis 04/02/2014. ??Anteverted uterus measures 8.7 x 5.7 x 4.1 cm without focal abnormality. ??Endometrium is unremarkable measuring 2 mm in thickness. There is an anechoic cyst in the right adnexa measuring 4 x 2.8 x 2.6 cm. ?? Probable thin rim of right ovarian tissue around this cyst with internal Doppler blood flow. Left ovary measures 2.9 x 2.8 x 2.6 cm and contains an anechoic cyst measuring 2.2 cm. ??Normal color Doppler blood flow was demonstrated to the left ovary. No pelvic free fluid. Procedure Note Provider, MD John - 09/07/2020 EXAMINATION: Pelvic ultrasound HISTORY: Follow-up ovarian cyst noted on outside CT. TECHNIQUE: Transabdominal and transvaginal camarena-scale, color and spectral Doppler ultrasound evaluation of the pelvis. FINDINGS: Comparison made with CT abdomen and pelvis 04/02/2014.Anteverted uterus measures 8.7 x 5.7 x 4.1 cm without focal abnormality. Endometriumis unremarkable measuring 2 mm in thickness. There is an anechoic cyst in the right adnexa measuring 4 x 2.8 x 2.6 cm. Probable thin rim of right ovarian tissue around this cyst with internal Doppler blood flow. Left ovary measures 2.9 x 2.8 x 2.6 cm and contains an anechoic cystmeasuring 2.2 cm. Normal color Doppler blood flow was demonstrated to the leftovary. No pelvic free fluid. IMPRESSION: 1. Right adnexal simple cyst measuring 4 cm, most likely ovarian. 2. Left ovarian simple cyst measuring 2.2 cm. Follow-up pelvic ultrasound is recommended in 6 months to evaluate for resolution. THIS IS AN ELECTRONICALLY VERIFIED REPORT 09/08/2015 5:20 PM: Genaro Blanc M.D. Genaro Blanc M.D. NH:mo 05:20 PM 05:[address] [facility] [EOD] Curtis Oseguera MD IMG US PROCEDURES Final Result documented in this encounter Visit Diagnoses Diagnosis Ovarian cyst Other and unspecified ovarian cyst documented in this encounter Care Teams Parcel Post Delivery Relationship Specialty Start Date End Date Feliciano Dash MD PCP - General 07/13/15 03/07/16 documented as of this encounter
--- OUTSIDE RECORDS SUMMARY | 2024-04-29 19:25 | XMS_ITS | Encounter Summary ---
Author Organization [facility] Facility Care Team Providers Care Peanut Vendor Name Role Phone Unavailable Primary Care Provider Unavailabl e Encounter Details Date Type Department Care Team (Late st Contact Info) Description 09/04/2014 10:19 AM CDT - 09/04/2014 3:38 PM CDT Hospital Encounter [facility] Zaida Worrell, LINING SETTER [address] [place] [address] Calculus of kidney; Abdominal pain; Urinary tract infection; Diverticulosis of colon; Tobacco use disorder Social History Tobacco Use Types Packs/Day Years Used Date Smoking Tobacco: Never Assessed Comments Unknown Sex and Gender Information Value Date Recorded Sex Assigned at Not on file 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 Gender Identity Female 08/14/2022 11:32 AM CDT Sexual Orientation Straight 02/13/2023 7: 01 AM CDT documented as of this encounter Plan of Treatment Not on file documented as of this encounter Procedures Procedure Name Priority Date/Time Associated Diagnosis Comments URINE (AEROBIC) CULTURE, CDR Routine 09/04/2014 12:[address] ABDOMEN PELVIS WO CONTRAST Routine 09/04/2014 12:48 PM CDT URINE CHORIONIC GONADOTROPIN (HCG) Routine 09/04/2014 12:24 PM CDT URINE MICROSCOPY Routine 09/04/2014 11:0 7 AM CDT PLASMA BASIC METABOLIC PANEL Routine 09/04/2014 11:07 AM CDT URINALYSIS Routine 09/04/2014 11:07 AM CDT BLOOD CELL COUNT (CBC) Routine 09/04/2014 11:07 AM CDT ALL MICROBIOLOGY REPORT SECTION Routine 09/04/2014 12:00 AM CDT DISCHARGE LABORATORY CUMULATIVE REPORT Routine 09/04/2014 12:00 AM CDT documented in this encounter Results * Urine (aerobic) culture (09/04/2014 12:59 PM CDT) Urine, clean voided (Unknown) 09/04/2014 12:59 PM CDT 09/04/2014 1:05 PM CDT Narrative HISTORICAL RESULTS - 09/05/2014 2:07 PM CDT Insignificant growth based on current clinical standards. us Historical Provider LAB MICROBIOLOGY - GENERA L ORDERABLES Final Result HISTORICAL RESULTS * CT Abdomen Pelvis WO Contrast (09/04/2014 12:48 PM CDT) Anatomical Region Laterality Modality Body N/A Computed Tomogra phy 09/04/2014 12:4 8 PM CDT Narrative 09/04/2014 5:14 PM CDT FRANKY ROBBINS M.D. LUNA KUNZ M.D. FINAL REPORT The radiology attending physician has personally reviewed this study, and has reviewed and/or edited this written report and agrees with it. ACC# ??Date Time ??Exam [id number] September 04, 2014 12:48:[id number] Abd & Pelvis wo cont EXAMINATION: ?? Computed tomography of the abdomen and pelvis without contrast HISTORY: Bilateral flank pain. Reported outside CT scan with bilateral nephrolithiasis and an obstructing stone on the left. TECHNIQUE: Computed tomography of the abdomen and pelvis was performed without contrast according to a renal stone protocol. FINDINGS: No prior study is available for comparison. The visualized lung bases are clear. Noncontrast evaluation of the liver is unremarkable. The gallbladder is normal in appearance. The pancreas and adrenal glands are normal. Scattered calcifications in the spleen are consistent with old healed granulomatous disease. There are multiple small bilateral renal calculi. The largest measures 4 mm in the upper pole of the right kidney. There is no hydronephrosis. No significant perinephric or periureteral stranding. The small and large bowel are normal. There is no evidence of bowel obstruction. There is sigmoid diverticulosis without evidence of diverticulitis. The uterus and adnexa are unremarkable. There are no pathologically enlarged abdominal or pelvic lymph nodes. Dilation bone windows shows no suspicious osseous lesion. IMPRESSION: ?? 1. Multiple bilateral nonobstructing renal calculi. 2. Diverticulosis without evidence of diverticulitis. Requested By: ZAIDA CHOUDHURY Dictated By: ?? LUNA KUNZ M.D. ??on Sep 04 2014 ??1:02P This document has been electronically signed by: FRANKY ROBBINS M.D. on Sep 04 2014 ??5:14P [id number] Procedure Note Provider, MD John - 08/20/2016 FRANKY ROBBINS M.D. LUNA KUNZ M.D. FINAL REPORT The radiology attending physician has personally reviewed this study, and has reviewed and/or edited this written report and agrees with it. ACC# Date Time Exam [id number] September 04, 2014 12:48:[id number] Abd & Pelvis wo cont EXAMINATION: Computed tomography of the abdomen and pelvis without contrast HISTORY: Bilateral flank pain. Reported outside CT scan with bilateral nephrolithiasis and an obstructing stone on the left. TECHNIQUE: Computed tomography of the abdomen and pelvis was performed without contrast according to a renal stone protocol. FINDINGS: No prior study is available for comparison. The visualized lung bases are clear. Noncontrast evaluation of the liver is unremarkable. The gallbladder is normal in appearance. The pancreas and adrenal glands are normal. Scattered calcifications in the spleen are consistent with old healed granulomatous disease. There are multiple small bilateral renal calculi. The largest measures 4 mm in the upper pole of the right kidney. There is no hydronephrosis. No significant perinephric or periureteral stranding. The small and large bowel are normal. There is no evidence of bowel obstruction. There is sigmoid diverticulosis without evidence of diverticulitis. The uterus and adnexa are unremarkable. There are no pathologically enlarged abdominal or pelvic lymph nodes. Dilation bone windows shows no suspicious osseous lesion. IMPRESSION: 1. Multiple bilateral nonobstructing renal calculi. 2. Diverticulosis without evidence of diverticulitis. Requested By: ZAIDA CHOUDHURY ANP Dictated By: LUNA KUNZ M.D. on Sep 04 2014 1:02P This document has been electronically signed by: FRANKY ROBBINS M.D. on Sep 04 2014 5:14P [id number] Historical Provider IMG CT PROCEDURES Final R esult * Urine chorionic gonadotropin (HCG) (09/04/2014 12:24 PM CDT) HCG, ur Negative HISTORICAL RESULTS Urine 09/04/2014 12:2 4 PM CDT Erlin Simental MD LAB BLOOD ORDERABLES Final Res ult HISTORICAL RESULTS * Plasma basic metabolic panel (09/04/2014 11:07 AM CDT) Sodium 140 135 - 145 mmol/L HISTORICAL RESULTS K, pl 4.2 3.3 - 4.9 mmol/L HISTORICAL RESULTS Chloride 110 97 - 110 mmol/L HISTORICAL RESULTS CO2 22 22 - 32 mmol/L HISTORICAL RESULTS A. gap 8 0 - 16 mmol/L HISTORICAL RESULTS Glucose 89 70 - 199 mg/dl HISTORICAL RESULTS BUN 17 8 - 25 mg/dl HISTORICAL RESULTS Creatinine 0.77 0.60 - 1.10 mg/dl HISTORICAL RESULTS Calcium 9.0 8.6 - 10.3 mg/dl HISTORICAL RESULTS Plasma 09/04/2014 11:0 7 AM CDT Zaida Choudhury LINING SETTER LAB BLOOD ORDERABLES Final Result HISTORICAL RESULTS * (ABNORMAL) Blood cell count (CBC) (09/04/2014 11:07 AM CDT) WBC 9.0 3.8 - 9.8 K/cumm HISTORICAL RESULTS RBC 4.48 3.90 - 5.00 M/cumm HISTORICAL RESULTS Hgb 13.1 12.1 - 15.1 g/dl HISTORICAL RESULTS Hct 40.5 36.1 - 44.3 % HISTORICAL RESULTS MCV 90.4 80.0 - 97.6 fl HISTORICAL RESULTS MCH 29.3 26.7 - 33.7 pg HISTORICAL RESULTS MCHC 32.5(L) 32.7 - 35.5 g/dl HISTORICAL RESULTS Rdw 13.2 11.8 - 14.6 % HISTORICAL RESULTS Platelets 305 140 - 440 K/cumm HISTORICAL RESULTS MPV 8.2 6.8 - 10.4 fl HISTORICAL RESULTS Neutrophils, abs 6.2 1.8 - 6.6 K/cumm HISTORICAL RESULTS Lymphocytes, abs 2.1 1.2 - 3.3 K/cumm HISTORICAL RESULTS Monocytes, absolute 0.5 0.2 - 1.2 K/cumm HISTORICAL RESULTS Eosinophils, abs 0.1 0.0 - 0.5 K/cumm HISTORICAL RESULTS Basophils, abs 0.1 0.0 - 0.2 K/cumm HISTORICAL RESULTS Neutrophils 69.1 38.7 - 74.5 % HISTORICAL RESULTS Lymphocytes 23.5 20.0 - 54.3 % HISTORICAL RESULTS Monos 5.1 4.3 - 13.5 % HISTORICAL RESULTS Eosinophils 1.3 0.0 - 6.0 % HISTORICAL RESULTS Basophils 1.0 0.0 - 3.0 % HISTORICAL RESULTS Blood specimen (specimen) 09/04/2014 11:07 AM CDT us Zaida Choudhury NP LAB BLOOD ORDERABLES Final Result HISTORICAL RESULTS * (ABNORMAL) Urinalysis (09/04/2014 11:07 AM CDT) Color, ur Yellow Yellow HISTORICAL RESULTS Clarity, ur Clear Clear HISTORIC AL RESULTS Specific gravity, ur 1.017 1.003 - 1.030 HISTORICAL RESULTS pH, ur 7.0 5.0 - 8.0 HISTORICAL RESULTS Protein, ur Negative Trace HISTORIC AL RESULTS Glucose, ur Negative Negative HISTORIC AL RESULTS Ketones, ur Negative Negative HISTORIC AL RESULTS Bilirubin, ur Negative Negative HISTOR ICAL RESULTS U Blood 1+(A) Negative HISTORICAL RESULTS Urobilinogen, quant, ur <2.0 0.0 - 2.0 mg/dl HISTORICAL RESULTS Nitrites, ur Negative Negative HISTORI ESTELLE RESULTS Leukocyte esterase, ur 3+(A) Negative HISTORICAL RESULTS Urine 09/04/2014 11:0 7 AM CDT Erlin Simental MD LAB BLOOD ORDERABLES Final Res ult Performing Organization Address City/State/[facility] Co de Phone Number HISTORICAL RESULTS * (ABNORMAL) Urine microscopy (09/04/2014 11:07 AM CDT) RBC, ur 2 0 - 3 /hpf HISTORICA L RESULTS WBC, ur 3 0 - 5 /hpf HISTORICA L RESULTS Bacteria, ur 2+(A) Trace HISTORI ESTELLE RESULTS Epithelial cells, renal, ur 0 0 - 0 /hpf HISTORICAL RESULTS Epithelial cells, squamous, ur >20 /lpf HISTORICAL RESULTS Mucus, ur Small /hpf HISTORICAL RESULTS Urine 09/04/2014 11:0 7 AM CDT Erlin Simental MD LAB BLOOD ORDERABLES Final Res ult Performing Organization Address [facility] de Phone Number HISTORICAL RESULTS * All Microbiology Report Section (09/04/2014 12:00 AM CDT) 09/04/2014 Narrative HISTORICAL RESULTS - 09/05/2014 4:08 PM CDT ? [facility] ?[facility] ?[place], [place] [address] ? Patient Name: ??JULIAN GALO ? Med Rec Number: [id number] ? Fin Number: ?[id number] ? Date: ?1975 ? Sex/Age: ? Female 39 years ? Admit Date: ?09/04/2014 ? Discharge Date: 09/04/2014 ? Doctor: ?Foersterling , Zaida L ? Facility: ?[facility] ? Location: ?EM3-2 ?* Abnormal ??A Alert ??f Footnote ??^ Corrected ??L Low ??H High ?i Interp Data ??@ Ref Lab ? Chart Type:Cumulative ?* * * * MICROBIOLOGY - URINE * * * * ?PROCEDURE: Urine Culture ? SOURCE: Urine, clean voided ? COLLECTED: 05/16/15 ??1259 ?BODY SITE: ? STARTED: 05/16/15 ??1305 ? FREE TEXT SOURCE: ? FINAL REPORT ? REPORTED: 09/05/14 1407 ? Insignificant growth based on current clinical standards. us Historical Provider MD LAB MICROBIOLOGY - GENERA L ORDERABLES Final Result HISTORICAL RESULTS * Discharge Laboratory Cumulative Report (09/04/2014 12:00 AM CDT) 09/04/2014 Narrative HISTORICAL RESULTS - 09/05/2014 3:17 PM CDT ?[facility] ?Department of Laboratories ? [facility] ? [place], [place] [address] Patient Name: ??JULIAN GALO Med Rec Number: [id number] Fin Number: ?[id number] Date: ?1975 Sex/Age: ? Female 39 years Admit Date: ?09/04/2014 Discharge Date: 09/04/2014 Doctor: ?Zaida Choudhury Facility: ?[facility] Location: ?EM3-2 Chart Printed: 09/05/2014 15:17 ?? * Abnormal ?? C Critical ?? f Footnote ?? ^ Corrected ?? L Low ?? H High ? i Interp Data ?? @ Reference Lab ?Chart Type:Cumulative ? SELECTED ELECTROLYTES ?Test: Sodium ? Plasma Potassium ??Chloride ? Reference: [135-145] ??[3.3-4.9] ? [97-110] ? Units: mmol/L ? mmol/L ?mmol/L 09/04/2014 ?? 11:07:00 ?? 140 ?4.2 ? 110 ?Test: Total CO2 ??Anion Gap ? Reference: [22-32] ?[0-16] ? Units: mmol/L ? mmol/L 09/04/2014 ?? 11:07:00 ?? 22 ? 8 ? STANDARD BLOOD CHEMISTRY ?Test: BUN ? Creatinine ?? Glucose ?? Total Calcium ? Reference: [8-25] ??[0.60-1.10] ??[70-199] ??[8.6-10.3] ? Units: mg/dL ?? mg/dL ?mg/dL ? mg/dL 09/04/2014 ?? 11:07:00 ?? 17 ?0.77 ? 89 ?9.0 ?URINE HORMONES ?Test: hCG Ur Qual ? Reference: ? Units: 09/04/2014 ?? 12:24:00 ?? Negative ?URINALYSIS ?Macroscopic ?Test: Color ? Clarity ??Specific [place] ??pH ? Reference: [Yellow] ??[Clear] ??[1.003-1.030] ? [5.0-8.0] ? Units: 09/04/2014 ?? 11:07:00 ?? Yellow ?Clear ?1.017 ? 7.0 ?Test: Albumin ?? Glucose ? Ketones ? Bilirubin ? Reference: [Trace] ?? [Negative] ??[Negative] ??[Negative] ? Units: 09/04/2014 ?? 11:07:00 ?? Negative ??Negative ?Negative ?Negative ?Test: Blood ? Urobilinogen ??Nitrite ? Reference: [Negative] ??[0.0-2.0] ? [Negative] ? Units: ? mg/dL 09/04/2014 ?? 11:07:00 ?? 1+ ??* ? <2.0 ?Negative ?Test: Leuk Esterase ? Reference: [Negative] ? Units: 09/04/2014 ?? 11:07:00 ?? 3+ ??* ?Microscopic ?Test: Epithl Squam ??Mucus Thrds ??RBC Ur ??WBC Ur ? Reference: ?[0-3] ?? [0-5] ? Units: /LPF ?/HPF ? /HPF ?/HPF 09/04/2014 ?? 11:07:00 ?? >20 ? Small ?2 ? 3 ?Test: Bacteria Ur ??Epithl Renl Ur ? Reference: [Trace] ?[0-0] ? Units: ?/HPF 09/04/2014 ?? 11:07:00 ?? 2+ ??* ?0 ? COMPLETE BLOOD COUNT ?Test: WBC ?RBC ?Hgb ? Reference: [3.8-9.8] ??[3.90-5.00] ??[12.1-15.1] ? Units: K/cumm ? M/cumm ? g/dL 09/04/2014 ?? 11:07:00 ?? 9.0 ?4.48 ? 13.1 ?Test: Hct ?Platelet Ct ??MCV ? Reference: [36.1-44.3] ??[140-440] ?[80.0-97.6] ? Units: % ?K/cumm ? fL 09/04/2014 ?? 11:07:00 ?? 40.5 ? 305 ?90.4 ?Test: MCH ?MCHC ? RDW ? Reference: [26.7-33.7] ??[32.7-35.5] ??[11.8-14.6] ? Units: pg ? g/dL ? % 09/04/2014 ?? 11:07:00 ?? 29.3 ? 32.5 ??L ?13.2 ? COMPLETE BLOOD COUNT ?Test: MPV ? Reference: [6.8-10.4] ? Units: fL 09/04/2014 ?? 11:07:00 ?? 8.2 ? AUTOMATED WHITE CELL DIFFERENTIAL ?Test: Neut Pct Auto ??Lymph Pct Auto ??[place] Pct Auto ? Reference: [38.7-74.5] ?[20.0-54.3] ? [4.3-13.5] ? Units: % ?% ? % 09/04/2014 ?? 11:07:00 ?? 69.1 ? 23.5 ?5.1 ?Test: Eos Pct Auto ??Baso Pct Auto ??Neut Abs Auto ? Reference: [0.0-6.0] ? [0.0-3.0] ?[1.8-6.6] ? Units: % ? % ?K/cumm 09/04/2014 ?? 11:07:00 ?? 1.3 ? 1.0 ?6.2 ?Test: Lymph Abs Auto ??[place] Abs Auto ??Eos Abs Auto ? Reference: [1.2-3.3] ? [0.2-1.2] ?[0.0-0.5] ? Units: K/cumm ?K/cumm ? K/cumm 09/04/2014 ?? 11:07:00 ?? 2.1 ? 0.5 ?0.1 ?Test: Baso Abs Auto ? Reference: [0.0-0.2] ? Units: K/cumm 09/04/2014 ?? 11:07:00 ?? 0.1 ? MICROBIOLOGY - ALL TESTS ? PROCEDURE: Urine Culture ?SOURCE: Urine, clean voided COLLECTED: 09/04/14 ??1259 ? BODY SITE: STARTED: 09/04/14 ??1305 FREE TEXT SOURCE: FINAL REPORT REPORTED: 09/05/14 1407 Insignificant growth based on current clinical standards. ? MICROBIOLOGY - URINE ? PROCEDURE: Urine Culture ?SOURCE: Urine, clean voided COLLECTED: 09/04/14 ??1259 ? BODY SITE: STARTED: 09/04/14 ??1305 FREE TEXT SOURCE: FINAL REPORT REPORTED: 09/05/14 1407 Insignificant growth based on current clinical standards. us Historical Provider LAB BLOOD ORDERABLES Abigail l Result HISTORICAL RESULTS documented in this encounter Visit Diagnoses Diagnosis Calculus of kidney Abdominal pain Abdominal pain, unspecified site Urinary tract infection Urinary tract infection, site not specified Diverticulosis of colon Diverticulosis of colon (without mention of hemorrhage) Tobacco use disorder documented in this encounter
--- OUTSIDE RECORDS SUMMARY | 2024-04-29 19:25 | XMS_ITS | Encounter Summary ---
Author Organization [facility] Address [address] [place] [phone] Phone Care Team Providers Care Field Broomer Name Role Phone Feliciano Dash MD Primary Care Provider [phone] Reason for Visit * Reason Onset Date Comments Deena VALLE Tito 02/12/2017 Deena VALLE Tito Encounter Details Date Type Department Care Team (Late st Contact Info) Description 02/12/[address] [address] Rach Granda Tito (Deena VALLE Tito) Social History Tobacco Use Types Packs/Day Years Used Date Smoking Tobacco: Never Alcohol Use Standard Drinks/Week Comments No 0 (1 standard drink = 0.6 oz pur e alcohol) Comments Unknown Sex and Gender Information Value Date Recorded Sex Assigned at Not on file 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 documented in this encounter Plan of Treatment Not on file documented as of this encounter Visit Diagnoses Not on filedocumented in this encounter Care Teams Field Broomer Relationship Specialty Start Date End Date Feliciano Dash MD PCP - General 07/20/16 02/17/17 documented as of this encounter
--- OUTSIDE RECORDS SUMMARY | 2024-04-29 19:25 | XMS_ITS | Encounter Summary ---
Author Organization [facility] Facility Care Team Providers Care Supervisor Housecleaner Name Role Phone Isaiah Quiros MD Unavailable Isaiah Quiros MD Primary Care Provider [phone] Kumar CARRILLO MD, Cash Howard Unavailable [phone] Encounter Details Date Type Department Care Team (Latest Contact Info) Description 09/08/2018 Travel Social History Tobacco Use Types Packs/Day Years Used Date Smoking Tobacco: Never Alcohol Use Standard Drinks/Week Comments No 0 (1 standard drink = 0.6 oz pur e alcohol) Comments No Sex and Gender Information Value Date Recorded Sex Assigned at Not on file 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 Gender Identity Female 08/14/2022 11:32 AM CDT Sexual Orientation Straight 02/13/2023 7: 01 AM CDT documented as of this encounter Plan of Treatment Not on file documented as of this encounter Visit Diagnoses Not on filedocumented in this encounter Care Teams Supervisor Housecleaner Relationship Specialty Start Date End Date Isaiah Quiros MD [address] [place] [address] PCP - General Internal Medicine 04/01/17 06/02/20 Isaiah Quiros MD [address] [place] [address] Internal Medicine 02/18/17 03/19/21 Cash Heath III, MD [address] [address] Rheumatology 04/12/17 documented as of this encounter
--- OUTSIDE RECORDS SUMMARY | 2024-04-29 19:25 | XMS_ITS | Encounter Summary ---
Author Organization [facility] Facility Care Team Providers Care Slot Machine Department Floorperson Name Role Phone Isaiah Quiros MD Unavailable Isaiah Quiros MD Primary Care Provider [phone] Kumar CARRILLO MD, Cash Howard Unavailable [phone] Encounter Details Date Type Department Care Team (Latest Contact Info) Description 08/14/2018 Travel Social History Tobacco Use Types Packs/Day Years Used Date Smoking Tobacco: Never Alcohol Use Standard Drinks/Week Comments No 0 (1 standard drink = 0.6 oz pur e alcohol) Comments Unknown Sex and Gender Information Value Date Recorded Sex Assigned at Not on file 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 Gender Identity Female 08/14/2022 11:32 AM CDT Sexual Orientation Straight 02/13/2023 7: 01 AM CDT documented as of this encounter Plan of Treatment Not on file documented as of this encounter Visit Diagnoses Not on filedocumented in this encounter Care Teams Slot Machine Department Floorperson Relationship Specialty Start Date End Date Isaiah Quiros MD [address] [place] [address] PCP - General Internal Medicine 04/01/17 06/02/20 Isaiah Quiros MD [address] [place] [address] Internal Medicine 02/18/17 03/19/21 Cash Heath III, MD [address] [address] Rheumatology 04/12/17 documented as of this encounter
--- OUTSIDE RECORDS SUMMARY | 2024-04-29 19:25 | XMS_ITS | Encounter Summary ---
Author Organization [facility] Address [address] [facility] [address] [place] [address] Care Team Providers Care Superintendent Oil Well Services Name Role Phone Isaiah Quiros MD Unavailable Isaiah Quiros MD Primary Care Provider [phone] Kumar CARRILLO MD, Cash Howard Unavailable [phone] Reason for Referral * Diagnostic Lab (Routine) - Closed Specialty Diagnoses / Procedures Referred By Contmonserrat t Referred To Contact Lab Diagnoses Vaginal discharge Procedures Vaginitis - vaginosis panel Bert Oseguera MD Phone: tel: fax: Referral ID Status Reason Start Date Expiration Date Visits Re quested Visits Authorized [id number] Closed 09/08/2018 03/19/2020 1 1 Reason for Visit * Reason Comments Vaginal Discharge seemed rubbery Pelvic Pain keeps getting ovaria n cysts Encounter Details Date Type Department Care Team (Late st Contact Info) Description 09/08/2018 1:30 PM CDT Office Visit [facility] Obstetrical Gynecology [address] [facility] [address] [place] [id number] [place] [address] [place] [address] [address] [place] [address] Pelvic and perineal pain (Primary Dx); Vaginal discharge Social History Tobacco Use Types Packs/Day Years Used Date Smoking Tobacco: Never Alcohol Use Standard Drinks/Week Comments No 0 (1 standard drink = 0.6 oz pur e alcohol) Comments No Sex and Gender Information Value Date Recorded Sex Assigned at Not on file 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 Gender Identity Female 08/14/2022 11:32 AM CDT Sexual Orientation Straight 02/13/2023 7: 01 AM CDT documented as of this encounter Last Filed Vital Signs Vital Sign Reading Time Taken Comments Blood Pressure 124/70 09/08/2018 1:59 PM CDT Pulse - - Temperature - - Respiratory Rate - - Oxygen Saturation - - Inhaled Oxygen Concentration - - Weight 85.3 kg (188 lb) 09/08/2018 1:59 PM CDT Height 167.6 cm (5' 6 ) 09/08/2018 1:59 PM CDT Body Mass Index 30.34 09/08/2018 1:59 PM CDT documented in this encounter Ordered Prescriptions Prescription Sig Dispense Quantity Refills Last Filled Start Date End Date norethindrone-ethi nyl estradiol-iron (LOESTRIN FE 1.5/30, 28-DAY,) 1.5 mg-30 mcg per tabletIndications: Pelvic and perineal pain Take 1 tablet by mouth daily 28 tablet 12 09/09/2018 12/24/2018 documented in this encounter Progress Notes * Bert Oseguera MD - 09/08/2018 1:30 PM CDT Subjective/Objective Patient ID: Julian Sauer is a 43 y.o. female. Chief Complaint Vaginal Discharge (seemed rubbery) and Pelvic Pain (keeps getting ovarian cysts) HPI: Patient is a 43-year-old 2, para 2 whose last menstrual period was 3 weeks ago and presentsto the office with complaints of pelvic pain and passage of tissue vaginally. Patient states periods are regular, heavy with some cramping. Not using control however not sexually active. She has been seen in the emergency room multiple times for pelvic pain, each time being diagnosed with an ovarian cyst. She has been sent home with pain medication and no follow-up was done. Most recently she states she passed a ???rubbery piece of tissue?? which she saved and brought to the office. No pain or cramping associated. No vasomotor symptoms. No significant discharge, itching or odor. She also has a history of kidney stones which have been causing her issues. Review of Systems Constitutional: Negative for activity change, appetite change, fatigue and unexpected weight change. HENT: Negative for sinus pressure and sore throat. Gastrointestinal: Negative for abdominal pain, anal bleeding, nausea and vomiting. Endocrine: Negative for cold intolerance and polyuria. Genitourinary: Positive for pelvic pain and vaginal discharge. Negative for difficulty urinating, dyspareunia, dysuria, hematuria, menstrual problem, urgency, vaginal bleeding and vaginal pain. Musculoskeletal: Negative for back pain. Skin: Negative for color change and rash. Neurological: Negative for dizziness, seizures, weakness and headaches. Psychiatric/Behavioral: Negative for agitation, dysphoric mood, sleep disturbance and suicidal ideas. The patient is not nervous/anxious. Breast: Negative for tenderness, breast redness, breast discharge and lump(s). Physical Exam Constitutional: She is oriented to person, place, and time. She appears well- developed and well-nourished. HENT: Head: Normocephalic. Eyes: No scleral icterus. Neck: Normal range of motion. Abdominal: Soft. There is tenderness. There is no rebound and no guarding. Genitourinary: Vagina normal. Genitourinary Comments: No lesions noted, vault with minimal white discharge, no odor, cervix nontender, uterus not enlarged nontender, no adnexal masses were noted. Some tenderness left side. Musculoskeletal: Normal range of motion. Neurological: She is alert and oriented to person, place, and time. Skin: Skin is warm and dry. Psychiatric: She has a normal mood and affect. Judgment normal. Assessment/Plan Diagnoses and all orders for this visit: Pelvic and perineal pain (R10.2) (Primary) Discussed at length with patient. With pain occurring mid cycle and seemingly getting better she most likely had an ovulatory event. She seems to be experiencing significant discomfort with ovulation. As previously discussed we can get her started on a control pill to suppress the ovaries. Risks and benefits discussed. Saturday start. Vaginal discharge (N89.8) - Surgical pathology; Future - Vaginitis - vaginosis panel; Future Wet prep was performed which was negative. Genital cultures obtained. The specimen that she broughtin was placed in formalin and sent for pathology. I did caution her that they may not be able to process the specimen. To me it appears like possibly some thickened mucus. documented in this encounter Miscellaneous Notes * Addendum Note - Bert Oseguera MD - 09/08/2018 1:30 PM CDTAddended by: BERT OSEGUERA on: 09/09/2018 03:58 PM Modules accepted: Orders documented in this encounter Plan of Treatment Not on file documented as of this encounter Procedures Procedure Name Priority Date/Time Associated Diagnosis Comments VAGINITIS - VAGINOSIS PANEL Routine 09/08/2018 6:27 PM CDT Vaginal discharge POCT WET PREP Routine 09/08/2018 3:47 PM CDT Vaginal discharge SURGICAL PATHOLOGY Routine 09/08/2018 12 :00 AM CDT Vaginal discharge documented in this encounter Results * (ABNORMAL) Vaginitis - vaginosis panel (09/08/2018 6:27 PM CDT) Trichomonas vaginalis Not Detected [facility] Comment: SPECIMEN SOURCE: ?VAGINITIS/VAGINOSIS W/O PAP W/O HPV ??EXPANDED, ?NOT PROVIDED MOLECULAR ? INTERPRETATION: ? Results do not favor Bacterial Vaginosis (BV). MOLECULAR COMMENT: ?No Lactobacillus or anaerobic bacterial DNA (from ?G. vaginalis, A. vaginae, Megasphaera, BVAB2) is ?detected. ??This may be due to an interfering ?substance, aerobic vaginitis, atrophic vaginitis ?or postmenopausal status, desquamative ?inflammatory vaginitis, or recent post-douching ?of the vagina. Brenda Genus Not Detected [facility] C. albicans by PCR Not Detected [facility] Gardnerella vaginalis Not Detected [facility] A. Vaginalis by RT-PCR Not Detected [facility] Lactobacillus (Species) by PCR Not Detected(A) [facility] Megasphaera Type 1 by RT PCR Not Detected [facility] BVAB2 by RT-PCR Not Detected [facility] Lactobacillus Sp. Log (Cells/mL) <3.25(A) [facility] G. vaginalis qn <3.25 [facility] A. vaginalis Log (Cells/mL) <3.25 [facility] Comment: TRICHOMONAS BY MULTIPLEX PCR (1,5,6) BRENDA GENUS (2,3,5,6) C.ALBICANS BY PCR (2,3,5,6) G. VAGINALIS BY RT-PCR (4,5,7) A. VAGINALIS BY RT-PCR (4,5,7) LACTOBACILLUS (SPECIES) BY PCR (4,5,7) MEGASPHAERA TYPE 1 BY RT PCR (4,5,7) BVAB2 BY RT-PCR (4,5,7) LACTOBACILLUS SP. LOG (CELLS/mL) (4,5,7) G. VAGINALIS LOG (CELLS/mL) (4,5,7) A. VAGINALIS LOG (CELLS/ML) (4,5,7) (1) This test is an in vitro test for the detection of sexually transmitted infections (STIs) in clinical specimens. ??The test utilizes amplification of target DNA by the Polymerase Chain Reaction (PCR) Vaginal 09/08/2018 6:27 PM CDT 09/09/2018 2:25 PM CDT us Bert Oseguera MD LAB PATHOLOGY ORDERABLE S Final Result [facility] * POCT WET PREP (09/08/2018 3:47 PM CDT) Trichomonas, Wet Prep Not present Not present Yeast, Wet Prep Not present Not present Clue Cells, Wet Prep Not present Not present Epithelial Cells, Wet Prep Not present Not present Bacilli, Wet Prep Not present Not present Spermatozoa, Wet Prep Not present Not present RBC, Wet Prep Not present Not present Vaginal 09/08/2018 3:47 PM CDT us Bert Oseguera MD POINT OF CARE TEST ORDE RABLES Final Result * Surgical pathology (09/08/2018 12:00 AM CDT) Tissue 09/08/2018 09/09/2018 Narrative [facility] - 09/10/2018 9:[address] [facility] Department of Pathology [address] [place] [address] ?? Final Report Patient Name: JULIAN SAUER : ??1975 (Age: 43) Gender: ??F Address: ??[address] [place] [address] ??[address] [facility] #: [id number] Service: DEFAULT Location: LAB DROP OFF Patient Type: Referring ? Taken: 09/08/2018 Received: 09/09/2018 Accessioned: 09/09/2018 Reported: 09/10/2018 Physician(s): Bert Oseguera M.D. Diagnosis: Specimen labeled vulvar tissue (clinically vaginal discharge): Decidualized endometrium with breakdown, suggestive of progestin effect. Hari Spain M.D. Report Electronically Reviewed and Signed Out By ??Hari Spain M.D. 09/10/2018 09:32:13 Specimen(s) Received: A: Vulvar Tissue Microscopic Description: Sections show fragments of decidualized endometrium with focal breakdown. Clinical History: Vaginal Discharge Gross Description The specimen container is labeled with the patient's name and vulvar tissue . ??Received in formalin is an irregular strip of soft purple tissue which measures 3.2 x 0.4 x 0.3 cm. ??This tissue is submitted entirely in cassette A1. carmina/09/09/2018 14:55 ??ELONARD Sarmiento us Bert Oseguera MD LAB PATHOLOGY [place] [address], [place] [phone] documented in this encounter Visit Diagnoses Diagnosis Pelvic and perineal pain- Primary Vaginal discharge Leukorrhea, not specified as infective documented in this encounter Historical Medications * This list may reflect changes made after this encounter. traZODone (DESYREL) 100 mg tablet Take 100 mg by mouth pantoprazole DR (PROTONIX) 40 mg EC tablet TAKE 1 TABLET(40 MG) BY MOUTH DAILY 30 MINUTES BEFORE BREAKFAST 12/21/[address] (CYMBALTA) 60 mg capsule 60 mg daily dicyclomine (BENTYL) 10 mg capsule Take 10 mg by mouth every 6 hours as needed 07/23/2018 buPROPion XL (WELLBUTRIN XL) 300 mg 24 hr tablet Take 300 mg by mouth topiramate (TOPAMAX) 100 mg tablet Take 200 mg by mouth 2 sucralfate (CARAFATE) suspension 1 gram/10 mL TAKE 10 ML BY MOUTH FOUR TIMES DAILY BEFORE MEALS AND NIGHTLY 10/15/2017 2 Saccharomyces boulardii (FLORASTOR) 250 mg capsule Take 250 mg by mouth 02/02/2017 3 pregabalin (LYRICA) 100 mg capsule Take 100 mg by mouth 2 LYRICA 75 mg capsule TK ONE C PO BID 2 08/17/2018 2 oxyCODONE-acetami nophen (PERCOCET) 5-325 mg per tablet TK 1 T PO PRN Q 6 H 0 09/03/2018 2 nitrofurantoin monohydrate (MACROBID) 100 mg capsule TK 1 C PO Q 12 H 0 09/03/2018 9 linaclotide (LINZESS) 145 mcg capsule Take 145 mcg by mouth 09/15/2015 2 hyoscyamine (OSCIMIN) 0.125 mg Take 0.125 mg by mouth every 3 hours 08/05/2015 2 hydroxychloroquin e (PLAQUENIL) 200 mg tablet 200 mg 0 HYDROcodone-aceta minophen (NORCO) 5-325 mg per tablet TK 1 T PO Q 4-6 H PRN 0 08/20/2018 0 guaiFENesin-dextr omethorphan ER (MUCINEX DM) 600-30 mg tablet extended release 12 hr Take 1 tablet by mouth 02/02/2017 2 guaiFENesin (ROBITUSSIN) syrup 100 mg/5 mL Take 10 mL by mouth every 6 hours 02/02/2017 9 etanercept (ENBREL) 25 mg (1 mL) injection Inject 25 mg under the skin once 0 doxycycline (DORYX) 100 mg EC tablet 100 mg every 12 (twelve) hours 12/19/2016 2 clonazePAM (KlonoPIN) 0.5 mg tablet 3 07/30/2018 2 alendronate (FOSAMAX) 70 mg tablet 1 09/02/2018 3 added in this encounter Care Teams Superintendent [employer] Relationship Specialty Start Date End Date Isaiah Quiros MD [address] [place], [place] [id number] PCP - General Internal Medicine 04/01/17 06/02/20 Isaiah Quiros MD [address] [place] [address] Internal Medicine 02/18/17 03/19/21 Cash Heath III, MD [address] [facility] [address] [place] [address] Rheumatology 04/12/17 documented as of this encounter
--- OUTSIDE RECORDS SUMMARY | 2024-04-29 19:25 | XMS_ITS | Encounter Summary ---
Author Organization [facility] Address [address] [place] [phone] Phone Care Team Providers Care Records Coordinator Name Role Phone Isaiah Quirso MD Unavailable Reason for Visit * Reason Onset Date Comments Enbrel Approval 02/18/2017 Enbrel Approval Encounter Details Date Type Department Care Team (Late st Contact Info) Description 02/18/[address] [phone] Rach Granda Enbrel Approval (Enbrel Approval) Social History Tobacco Use Types Packs/Day Years Used Date Smoking Tobacco: Never Alcohol Use Standard Drinks/Week Comments No 0 (1 standard drink = 0.6 oz pur e alcohol) Comments Unknown Sex and Gender Information Value Date Recorded Sex Assigned at Not on file 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 12 mL 02/18/2017 08/17/2017 documented in this encounter Miscellaneous Notes * Telephone Encounter - Rach Granda - 02/18/2017 5:13 PM CDT Enbrel Approval caseId [id number] effective 02/12/2017-02/12/2018 RxID [id number] RxGRP [id number] RxPCN OHCP. Stevenson documented in this encounter Plan of Treatment Not on file documented as of this encounter Visit Diagnoses Not on filedocumented in this encounter Care Teams Records Coordinator Relationship Specialty Start Date End Date Isaiah Quiros MD [address] [id number] Internal Medicine 02/18/17 03/19/21 documented as of this encounter
--- OUTSIDE RECORDS SUMMARY | 2024-04-29 19:25 | XMS_ITS | Encounter Summary ---
Author Organization [facility] Facility Care Team Providers Care Manager Acquisition Name Role Phone Feliciano Dash MD Primary Care Provider [phone] Encounter Details Date Type Department Care Team (Late st Contact Info) Description 09/16/2015 11:22 AM CDT - 09/16/2015 11:59 PM CDT Hospital Encounter [facility] CLINCONAntonio Ibrahim MD [address] [place] [address] Miriam Frye PA [address] [place] [address] Rheumatoid arthritis of multiple sites without rheumatoid factor (CMS/HCC); Abnormal levels of other serum enzymes Social History Tobacco Use Types Packs/Day Years Used Date Smoking Tobacco: Never Alcohol Use Standard Drinks/Week Comments No 0 (1 standard drink = 0.6 oz pur e alcohol) Comments Unknown Sex and Gender Information Value Date Recorded Sex Assigned at Not on file 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 Gender Identity Female 08/14/2022 11:32 AM [...] Name Priority Date/Time Associated Diagnosis Comments URINE MICROSCOPY Routine 09/16/2015 9:30 AM CDT PLASMA LIPASE Routine 09/16/2015 9:30 AM CDT PLASMA C-REACTIVE PROTEIN Routine 09/16/2015 9:30 AM CDT PLASMA COMPREHENSIVE METABOLIC PANEL Routine 09/16/2015 9:30 AM CDT PLASMA AMYLASE Routine 09/16/2015 9:30 AM CDT BLOOD ERYTHROCYTE SEDIMENTATION RATE (ESR) Routine 09/16/2015 9:30 AM CDT BLOOD CELL COUNT (CBC), MORPHOLOGIC EXAM Routine 09/16/2015 9:30 AM CDT URINALYSIS Routine 09/16/2015 9:30 AM CDT URINE MICROBIOLOGY Routine 09/16/2015 12 :00 AM CDT DISCHARGE LABORATORY CUMULATIVE REPORT 09/16/2015 documented in this encounter Results * Blood erythrocyte sedimentation rate (ESR) (09/16/2015 9:30 AM CDT) Erythrocyte sedimentation rate 9.0 0.0 - 20.0 mm/hr HISTORICAL RESULTS Blood specimen (specimen) 09/16/2015 9:30 AM CDT us Miriam VALLE LAB BLOOD ORDERAB LES Final Result HISTORICAL RESULTS * (ABNORMAL) Blood cell count (CBC), morphologic exam (09/16/2015 9:30 AM CDT) WBC 6.2 3.8 - 9.9 K/cumm HISTORICAL RESULTS RBC 5.26(H) 3.90 - 5.20 M/cumm HISTORICAL RESULTS Hgb 14.7 11.9 - 15.5 g/dl HISTORICAL RESULTS Hct 46.9(H) 35.6 - 45.5 % HISTORICAL RESULTS MCV 89.2 81.3 - 96.4 fl HISTORICAL RESULTS MCH 27.9 27.1 - 33.3 pg HISTORICAL RESULTS MCHC 31.3(L) 32.3 - 35.7 g/dl HISTORICAL RESULTS RDW 50.6(H) 35.7 - 48.1 fl HISTORICAL RESULTS Rdw 15.4(H) 11.1 - 14.9 % HISTORICAL RESULTS Platelets 414(H) 150 - 400 K/cumm HISTORICAL RESULTS MPV 9.1 9.1 - 12.3 fl HISTORICAL RESULTS Neutrophils 69.6 44.0 - 80.0 % HISTORICAL RESULTS Lymphocytes 23.5 13.0 - 44.0 % HISTORICAL RESULTS Monos 4.6 2.0 - 11.0 % HISTORICAL RESULTS Eosinophils 0.6 0.0 - 6.0 % HISTORICAL RESULTS Basophils 1.1 0.0 - 3.0 % HISTORICAL RESULTS Immature granulocytes 0.6 0.0 - 1.0 % HISTORICAL RESULTS NRBC 0.0 0.0 - 0.2 % HISTORICAL RESULTS Neutrophils, abs 4.3 1.7 - 6.5 K/cumm HISTORICAL RESULTS Lymphocytes, abs 1.5 0.8 - 3.3 K/cumm HISTORICAL RESULTS Monocytes, absolute 0.3 0.2 - 0.8 K/cumm HISTORICAL RESULTS Eosinophils, abs 0.0 0.0 - 0.5 K/cumm HISTORICAL RESULTS Basophils, abs 0.1 0.0 - 0.1 K/cumm HISTORICAL RESULTS Immature granulocyte, abs 0.0 0.0 - 0.1 K/cumm HISTORICAL RESULTS NRBC, abs 0.00 0.00 - 0.01 K/cumm HISTORICAL RESULTS Blood specimen (specimen) 09/16/2015 9:30 AM CDT Miriam [facility] LAB BLOOD ORDERAB LES Final Result HISTORICAL RESULTS * (ABNORMAL) Plasma comprehensive metabolic panel (09/16/2015 9:30 AM CDT) Sodium 139 136 - 146 mmol/L HISTORICAL RESULTS K, pl 3.8 3.3 - 4.9 mmol/L HISTORICAL RESULTS Chloride 110(H) 98 - 108 mmol/L HISTORICAL RESULTS CO2 21(L) 22 - 33 mmol/L HISTORICAL RESULTS BUN 12 7 - 18 mg/dl HISTORICAL RESULTS Glucose 92 70 - 140 mg/dl HISTORICAL RESULTS Comment: Glucose is assumed to be non-fasting. ?? Fasting Glucose normal ranges are: 0 days - 2 months: ? 40 mg/dL - 100 mg/dL 2 months - 999 years: ?70 mg/dL - 99 mg/dL Creatinine 0.84 0.50 - 1.50 mg/dl HISTORICAL RESULTS eGFR >60 ml/min/1.7 3 m2 HISTORICAL RESULTS Comment: GFR Reference Range: = > 60 mL/min/1.73 m2 This result has been calculated assuming the patient is Non-. ??If the patient is , please multiply this result by 1.21. The GFR value is not recommended for medication dose adjustment for renal function, creatinine clearance values should be used. Calcium 9.6 8.5 - 10.5 mg/dl HISTORICAL RESULTS Bilirubin 0.7 0.1 - 1.2 mg/dl HISTORICAL RESULTS Protein, pl 7.8 6.0 - 8.5 g/dl HISTORICAL RESULTS Alb 4.3 3.4 - 5.0 g/dl HISTORICAL RESULTS Alk phos 68 38 - 126 IUnits/L HISTORICAL RESULTS ALT 23 14 - 54 IUnits/L HISTORICAL RESULTS AST 16 15 - 41 IUnits/L HISTORICAL RESULTS Plasma 09/16/2015 9:30 AM CDT Miriam [facility] LAB BLOOD ORDERAB LES Final Result Performing Organization Address [facility] de Phone Number HISTORICAL RESULTS * Plasma C-reactive protein (09/16/2015 9:30 AM CDT) [facility] C-RP 2.7 0.00 - 10.00 mg/L HISTORICAL RESULTS Plasma 09/16/2015 9:30 AM CDT Miriam VALLE LAB BLOOD ORDERAB LES Final Result Performing Organization Address [facility] Phone Number HISTORICAL RESULTS * Plasma lipase (09/16/2015 9:30 AM CDT) [facility] Lip 42 8 - 57 Units/L HISTORICAL RESULTS Plasma 09/16/2015 9:30 AM CDT Miriam VALLE LAB BLOOD ORDERAB LES Final Result Performing Organization Address [facility] Number HISTORICAL RESULTS * (ABNORMAL) Plasma amylase (09/16/2015 9:30 AM CDT) [facility] Kaitlynn, pl 109(H) 28 - 100 IUnits/L HISTORICAL RESULTS Plasma 09/16/2015 9:30 AM CDT Miriam VALLE LAB BLOOD ORDERAB LES Final Result Performing Organization Address [facility] Phone Number HISTORICAL RESULTS * (ABNORMAL) Urinalysis (09/16/2015 9:30 AM CDT) [facility] Color, ur Yellow Colorless,St raw,Yellow HISTORICAL RESULTS Clarity, ur Hazy(A) Clear HISTORIC AL RESULTS Specific gravity, ur 1.016 1.005 - 1.030 HISTORICAL RESULTS pH, ur 6.0 5.0 - 8.0 HISTORICAL RESULTS Leukocyte esterase, ur 500(A) Negative drake/mcl HISTORICAL RESULTS Nitrites, ur Negative Negative HISTORI ESTELLE RESULTS Protein, ur Negative Negative mg/dl HISTORICAL RESULTS Glucose, ur, quant Normal Normal mg/dl HISTORICAL RESULTS Ketones, ur, quant Negative Negative mg/dl HISTORICAL RESULTS Urobilinogen, quant, ur Normal Normal mg/dl HISTORICAL RESULTS Bilirubin, ur Negative Negative mg/dl HISTORICAL RESULTS U Blood Negative Negative HISTORICAL RESULTS Urine 09/16/2015 9:30 AM CDT Miriam [facility]LE LAB BLOOD ORDERAB LES Final Result HISTORICAL RESULTS * (ABNORMAL) Urine microscopy (09/16/2015 9:30 AM CDT) RBC, ur 3 - 5(A) 0 - 2 /hpf HISTORICAL RESULTS WBC, ur 6 - 10(A) 0-2,3-5 /hpf HISTORICAL RESULTS Bacteria, ur 3+ /hpf HISTORI ESTELLE RESULTS Epithelial cells, squamous, ur Packed /lpf HISTORICAL RESULTS Mucus, ur Trace /lpf HISTORICAL RESULTS Urine 09/16/2015 9:30 AM CDT Miriam [facility] LAB BLOOD ORDERAB LES Final Result HISTORICAL RESULTS * Urine Microbiology (09/16/2015 12:00 AM CDT) 09/16/2015 12:0 0 AM CDT Narrative HISTORICAL RESULTS - 09/17/2015 1:34 PM CDT ? [facility] Laboratory Microbiology ?[address] ??[place], [place] ??[address] ? Tele: ? Vik Stephenson M.D. - Junior Recruiter - Tyrese Zambrano - ? Area Sales Manager ?? Patient: JULIAN GALO ? Admission #: ??[id number] ?? : 1975 ?Location: Laboratory ?? Gender: F ?? Admit Date: 09/16/2015 ? = = = = = = = = = = = = = = = = = = = = = = = = = = = = = = = = = = = = = = Urine Culture ? Final ?? Urine ?? Collected: ??09/16/2015 09:30 ?? Inoculated: ??09/16/2015 12:08 ?? Report Date: ??09/17/2015 12:06 ? This culture was reflexed from a Urinalysis result ?? Culture Result ?Growth consistent with rj-urethral adelso. = = = = = = = = = = = = = = = = = = = = = = = = = = = = = = = = = = = = = ? Physician: ?[facility] Microbiology Report-ClinDesk ? us Historical Provider LAB MICROBIOLOGY - GENERA L ORDERABLES Final Result HISTORICAL RESULTS * DISCHARGE LABORATORY CUMULATIVE REPORT (09/16/2015) Narrative 09/16/2015 Ordered by an unspecified provider. us Historical Provider LAB BLOOD ORDERABLES Abigail l Result documented in this encounter Visit Diagnoses Diagnosis Rheumatoid arthritis of multiple sites without rheumatoid factor (CMS/HCC) (HCC) Abnormal levels of other serum enzymes documented in this encounter Care Teams Manager Acquisition Relationship Specialty Start Date End Date Feliciano Dash MD PCP - General 07/13/15 03/07/16 documented as of this encounter
--- OUTSIDE RECORDS SUMMARY | 2024-04-29 19:25 | XMS_ITS | Encounter Summary ---
Author Organization [facility] Facility Care Team Providers Care Architecture Technician Name Role Phone Unavailable Primary Care Provider Unavailabl e Encounter Details Date Type Department Care Team (Late st Contact Info) Description 09/09/2014 - 09/09/2014 11:59 PM CDT Hospital Encounter [facility] Sienna Chand MD [address] [facility] [address] [place] [address] Other symptoms involving urinary system Social History Tobacco Use Types Packs/Day Years Used Date Smoking Tobacco: Never Assessed Comments Unknown Sex and Gender Information Value Date Recorded Sex Assigned at Not on file 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 Gender Identity Female 08/14/2022 11:32 AM CDT Sexual Orientation Straight 02/13/2023 7: 01 AM CDT documented as of this encounter Plan of Treatment Not on file documented as of this encounter Procedures Procedure Name Priority Date/Time Associated Diagnosis Comments DISCHARGE LABORATORY CUMULATIVE REPORT Routine 09/10/2014 5:24 PM CDT URINE (AEROBIC) CULTURE, CDR Routine 09/09/2014 12:52 PM CDT ALL MICROBIOLOGY REPORT SECTION Routine 09/09/2014 12:00 AM CDT documented in this encounter Results * Discharge Laboratory Cumulative Report (09/10/2014 5:24 PM CDT) 09/10/2014 5:2 4 PM CDT Narrative HISTORICAL RESULTS - 09/10/2014 5:24 PM CDT ? [facility] ? Department of Laboratories ? [facility] ? [address] [address] ?[facility] ??Division ??Urologic ?Surgery ? CAM 11-C Patient Name: ? GALO, JULIAN M Med Rec Number: ?? [id number] Date of : ?1975 Gender/Age: ? Female 39 years Doctor: ? Sienna Chand M.D. Report Date/Time: 09/10/2014 17:24 ?* Abnormal ??C Critical ??f Footnote ??^ Corrected ??L Low ??H High ?i Interp Data ??@ Reference Lab ?Chart Type: Cumulative ? MICROBIOLOGY ? PROCEDURE: Urine Culture ?SOURCE: Urine COLLECTED: 09/09/14 ??1252 ? BODY SITE: STARTED: 09/09/14 ??1310 FREE TEXT SOURCE: FINAL REPORT REPORTED: 09/10/14 1504 Growth indicative of contamination with periurethral adelso. Please submit a new specimen with special attention given to the collection process and to prompt transport to the laboratory. ORDER COMMENTS (1)Client / Account bill? No Client Account Number and Description: Historical Provider LAB BLOOD ORDERABLES Abigail l Result Performing Organization Address City/[facility] Co de Phone Number HISTORICAL RESULTS * Urine (aerobic) culture (09/09/2014 12:52 PM CDT) Urine (Unknown) 09/09/2014 1 2:52 PM CDT 09/09/2014 1:09 PM CDT Narrative HISTORICAL RESULTS - 09/10/2014 3:04 PM CDT Growth indicative of contamination with periurethral adelso. Please submit a new specimen with special attention given to the collection process and to prompt transport to the laboratory. Historical Provider MD LAB MICROBIOLOGY - GENERA L ORDERABLES Final Result Performing Organization Address [facility] Co de Phone Number HISTORICAL RESULTS * All Microbiology Report Section (09/09/2014 12:00 AM CDT) 09/09/2014 Narrative HISTORICAL RESULTS - 09/10/2014 4:49 PM CDT ? [facility] ?[facility] ?[place] [address] ? Patient Name: ??JULIAN GALO ? Med Rec Number: [id number] ? Fin Number: ?[id number] ? Date: ?1975 ? Sex/Age: ? Female 39 years ? Admit Date: ?09/09/2014 ? Discharge Date: 09/09/2014 ? Doctor: ?Chand , Sienna H ? Facility: ?[facility] Div Urologic Surgery ? Location: ?CAM06 ?* Abnormal ??A Alert ??f Footnote ??^ Corrected ??L Low ??H High ?i Interp Data ??@ Ref Lab ? Chart Type:Cumulative ?* * * * MICROBIOLOGY - URINE * * * * ?PROCEDURE: Urine Culture ? SOURCE: Urine ? COLLECTED: 09/09/ ??1252 ?BODY SITE: ? STARTED: 09/09/14 ??1310 ? FREE TEXT SOURCE: ? FINAL REPORT ? REPORTED: 09/10/14 1504 ? Growth indicative of contamination with periurethral adelso. ? Please submit a new specimen with special attention given to the ? collection process and to prompt transport to the laboratory. ? ORDER COMMENTS ? (1)Client / Account bill? No ? Client Account Number and Description: ? us Historical Provider LAB MICROBIOLOGY - GENERA L ORDERABLES Final Result HISTORICAL RESULTS documented in this encounter Visit Diagnoses Diagnosis Other symptoms involving urinary system documented in this encounter
--- OUTSIDE RECORDS SUMMARY | 2024-04-29 19:25 | XMS_ITS | Encounter Summary ---
Author Organization [facility] Facility Care Team Providers Care Slinger Sequins Name Role Phone Unavailable Primary Care Provider Unavailabl e Encounter Details Date Type Department Care Team (Late st Contact Info) Description 11/24/2014 5:38 PM CDT - 11/24/2014 11:05 PM CDT Hospital Encounter [facility] Hari Gross MD [address] [place] [address] Urinary tract infection; Calculus of kidney; Tobacco use disorder; Encounter for long-term (current) use of other medications Social History Tobacco Use Types Packs/Day Years Used Date Smoking Tobacco: Never Assessed Comments Unknown Sex and Gender Information Value Date Recorded Sex Assigned at Not on file 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 Gender Identity Female 08/14/2022 11:32 AM CDT Sexual Orientation Straight 02/13/2023 7: 01 AM CDT documented as of this encounter Plan of Treatment Not on file documented as of this encounter Procedures Procedure Name Priority Date/Time Associated Diagnosis Comments DISCHARGE LABORATORY CUMULATIVE REPORT 11/25/2014 URINE CHORIONIC GONADOTROPIN (HCG) Routine 11/24/2014 7:38 PM CDT PLASMA BASIC METABOLIC PANEL Routine 11/24/2014 7:33 PM CDT BLOOD CELL COUNT (CBC) Routine 11/24/2014 7:33 PM CDT URINE MICROSCOPY Routine 11/24/2014 7:23 PM CDT URINALYSIS Routine 11/24/2014 7:23 PM CDT URINE (AEROBIC) CULTURE, CDR Routine 11/24/2014 7:22 PM CDT ALL MICROBIOLOGY REPORT SECTION Routine 11/24/2014 12:00 AM CDT documented in this encounter Results * DISCHARGE LABORATORY CUMULATIVE REPORT (11/25/2014) Narrative 11/25/2014 Ordered by an unspecified provider. Historical Provider LAB BLOOD ORDERABLES Abigail l Result * Urine chorionic gonadotropin (HCG) (11/24/2014 7:38 PM CDT) HCG, ur Negative HISTORICAL RESULTS Urine 11/24/2014 7:38 PM CDT Hari Owen MD LAB BLOOD ORDERABLES Final Result Performing Organization Address City/[facility] Co de Phone Number HISTORICAL RESULTS * (ABNORMAL) Plasma basic metabolic panel (11/24/2014 7:33 PM CDT) Sodium 140 135 - 145 mmol/L HISTORICAL RESULTS K, pl 3.7 3.3 - 4.9 mmol/L HISTORICAL RESULTS Chloride 110 97 - 110 mmol/L HISTORICAL RESULTS CO2 15(L) 22 - 32 mmol/L HISTORICAL RESULTS A. gap 15 0 - 16 mmol/L HISTORICAL RESULTS Glucose 106 70 - 199 mg/dl HISTORICAL RESULTS BUN 14 8 - 25 mg/dl HISTORICAL RESULTS Creatinine 0.95 0.60 - 1.10 mg/dl HISTORICAL RESULTS Calcium 9.1 8.6 - 10.3 mg/dl HISTORICAL RESULTS Plasma 11/24/2014 7:33 PM CDT Hari Owen MD LAB BLOOD ORDERABLES Final Result Performing Organization Address City/[facility]/ZIP Co de Phone Number HISTORICAL RESULTS * (ABNORMAL) Blood cell count (CBC) (11/24/2014 7:33 PM CDT) WBC 8.8 3.8 - 9.8 K/cumm HISTORICAL RESULTS RBC 4.72 3.90 - 5.00 M/cumm HISTORICAL RESULTS Hgb 13.7 12.1 - 15.1 g/dl HISTORICAL RESULTS Hct 42.0 36.1 - 44.3 % HISTORICAL RESULTS MCV 89.0 80.0 - 97.6 fl HISTORICAL RESULTS MCH 29.0 26.7 - 33.7 pg HISTORICAL RESULTS MCHC 32.6(L) 32.7 - 35.5 g/dl HISTORICAL RESULTS Rdw 13.4 11.8 - 14.6 % HISTORICAL RESULTS Platelets 317 140 - 440 K/cumm HISTORICAL RESULTS MPV 7.7 6.8 - 10.4 fl HISTORICAL RESULTS Neutrophils 57.7 38.7 - 74.5 % HISTORICAL RESULTS Lymphocytes 34.6 20.0 - 54.3 % HISTORICAL RESULTS Monos 5.1 4.3 - 13.5 % HISTORICAL RESULTS Eosinophils 1.4 0.0 - 6.0 % HISTORICAL RESULTS Basophils 1.2 0.0 - 3.0 % HISTORICAL RESULTS Neutrophils, abs 5.0 1.8 - 6.6 K/cumm HISTORICAL RESULTS Lymphocytes, abs 3.0 1.2 - 3.3 K/cumm HISTORICAL RESULTS Monocytes, absolute 0.4 0.2 - 1.2 K/cumm HISTORICAL RESULTS Eosinophils, abs 0.1 0.0 - 0.5 K/cumm HISTORICAL RESULTS Basophils, abs 0.1 0.0 - 0.2 K/cumm HISTORICAL RESULTS Blood specimen (specimen) 11/24/2014 7:33 PM CDT us Hari Owen MD LAB BLOOD ORDERABLES Final Result HISTORICAL RESULTS * (ABNORMAL) Urinalysis (11/24/2014 7:23 PM CDT) Color, ur Yellow Yellow HISTORICAL RESULTS Clarity, ur Clear Clear HISTORIC AL RESULTS Specific gravity, ur 1.018 1.003 - 1.030 HISTORICAL RESULTS pH, ur 5.0 5.0 - 8.0 HISTORICAL RESULTS Protein, ur Negative Trace HISTORIC AL RESULTS Glucose, ur Negative Negative HISTORIC AL RESULTS Ketones, ur Negative Negative HISTORIC AL RESULTS Bilirubin, ur Negative Negative HISTOR ICAL RESULTS U Blood 2+(A) Negative HISTORICAL RESULTS Urobilinogen, quant, ur <2.0 0.0 - 2.0 mg/dl HISTORICAL RESULTS Nitrites, ur Negative Negative HISTORI ESTELLE RESULTS Leukocyte esterase, ur 1+(A) Negative HISTORICAL RESULTS Urine 11/24/2014 7:23 PM CDT Hari Owen MD LAB BLOOD ORDERABLES Final Result Performing Organization Address [facility] de Phone Number HISTORICAL RESULTS * (ABNORMAL) Urine microscopy (11/24/2014 7:23 PM CDT) RBC, ur 3 0 - 3 /hpf HISTORICA L RESULTS WBC, ur 6(H) 0 - 5 /hpf HISTORICA L RESULTS Bacteria, ur 1+ Trace HISTORI ESTELLE RESULTS Epithelial cells, renal, ur 0 0 - 0 /hpf HISTORICAL RESULTS Epithelial cells, squamous, ur >20 /lpf HISTORICAL RESULTS Mucus, ur Small /hpf HISTORICAL RESULTS Urine 11/24/2014 7:23 PM CDT Hari Owen MD LAB BLOOD ORDERABLES Final Result Performing Organization Address [facility] de Phone Number HISTORICAL RESULTS * Urine (aerobic) culture (11/24/2014 7:22 PM CDT) Urine (Unknown) 11/24/2014 7 :22 PM CDT 11/24/2014 8:13 PM CDT Narrative HISTORICAL RESULTS - 11/26/2014 10:23 AM CDT Insignificant growth based on current clinical standards. Historical Provider LAB MICROBIOLOGY - GENERA L ORDERABLES Final Result Performing Organization Address [facility] de Phone Number HISTORICAL RESULTS * All Microbiology Report Section (11/24/2014 12:00 AM CDT) 11/24/2014 Narrative HISTORICAL RESULTS - 11/26/2014 1:36 PM CDT ? [facility] ?[facility] [address] ?[place] [address] ? Patient Name: ??JULIAN GALO ? Med Rec Number: [id number] ? Fin Number: ?[id number] ? Date: ?1975 ? Sex/Age: ? Female 39 years ? Admit Date: ?11/24/2014 ? Discharge Date: 11/24/2014 ? Doctor: ?Hari Niño ? Facility: ?[facility] ? Location: ?EM-23 ?* Abnormal ??A Alert ??f Footnote ??^ Corrected ??L Low ??H High ?i Interp Data ??@ Ref Lab ? Chart Type:Cumulative ?* * * * MICROBIOLOGY - URINE * * * * ?PROCEDURE: Urine Culture ? SOURCE: Urine ? COLLECTED: 11/24/14 ??1922 ?BODY SITE: ? STARTED: 11/24/14 ??2013 ? FREE TEXT SOURCE: ? FINAL REPORT ? REPORTED: 11/26/14 1023 ? Insignificant growth based on current clinical standards. ? ORDER COMMENTS ? (1)Received in transport media. ? us Historical Provider LAB MICROBIOLOGY - GENERA L ORDERABLES Final Result HISTORICAL RESULTS documented in this encounter Visit Diagnoses Diagnosis Urinary tract infection Urinary tract infection, site not specified Calculus of kidney Tobacco use disorder Encounter for long-term (current) use of other medications documented in this encounter
--- OUTSIDE RECORDS SUMMARY | 2024-04-29 19:25 | XMS_ITS | Encounter Summary ---
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 Gender Identity Female 08/14/2022 11:32 AM CDT Sexual Orientation Straight 02/13/2023 7: 01 AM CDT documented as of this encounter Last Filed Vital Signs Vital Sign Reading Time Taken Comments Blood Pressure 140/72 02/11/2017 2:19 PM CDT Pulse 72 02/11/2017 2:19 PM CDT Temperature - - Respiratory Rate - - Oxygen Saturation - - Inhaled Oxygen Concentration - - Weight 74.4 kg (164 lb) 02/11/2017 2:19 PM CDT Height 167.6 cm (5' 6 ) 02/11/2017 2:19 PM CDT Body Mass Index 26.47 02/11/2017 2:19 PM CDT documented in this encounter Progress Notes * Miriam Frye PA - 02/11/2017 2:15 PM CDT Images from the original note were not included. Subjective/Objective Patient ID: Madalyn Smith is a 41 y.o. female. Chief Complaint Joint pain HPI Pt is losing weigh. Has lost over 20 lb since june. Has no appetite. Pap and mmgrm are utd. Had a nl colonoscopy in past 3 yrs. He rpcp is evaluating her weight loss. She just had a lot of labs drawn by him, has not heard about the results. Sees pcp again in 1 month. Had pneumonia last week. She is off imuran and humira. Occ has chills. No nt sweats or fevers, no cough before pneumonia. Joints are painful. Joints are very stiff in the morning. No cp, rashes, oral or nose ulcers. Not sure the meds were helping her joints. Review of Systems Constitutional: Negative for fatigue [...] CALCIUM 9.7 01/01/2017 SODIUM 141 01/01/2017 POTASSIUM 4.3 07/04/2016 CO2 24 01/01/2017 CHLORIDE 105 01/01/2017 BUNSER [...] multiple sites without rheumatoid factor (CMS/HCC) (Primary) RF neg but has a possible family hx of psoriatic arthritis (father) so if she develops psoriasis diagnosis will change to psoriatic arthritis. High cdai. Has not been seen since 08/06, not sure humira or imuran have helped with joint pain. Dx with pneumonia 2 weeks ago. Was in hospital x 5d. She stopped our meds when she was dx with pneumonia. Failing humira, will go to enbrel and stop imuran due to the weight loss. Her mmgrm pap and colo are utd and she sees pcp again in 1 month to re-evaluate the weight loss. He did labs on her last week, she is awaiting results. 2. Encounter for long-term (current) use of medications Check labs. 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 Other orders - CBC with auto differential; Future - Comprehensive metabolic panel; Future - CRP (acute phase); Future - Erythrocyte sedimentation rate; Future - XR Chest Pa Lateral 2 Views; Future Cosigned by Cash Heath MD at 02/11/2017 3:28 PM CDT documented in this encounter Plan of Treatment Scheduled Orders Name Type Priority Associated Diagnoses Orde r Schedule CBC with auto differential Lab Routine Rheumatoid arthritis of multiple sites without rheumatoid factor (CMS/HCC) 1 Occurrences starting 02/11/2017 until 02/08/2018 Comprehensive metabolic panel Lab Routine Rheumatoid arthritis of multiple sites without rheumatoid factor (CMS/HCC) 1 Occurrences starting 02/11/2017 until 02/08/2018 CRP (acute phase) Lab Routine Rheumatoid arthritis of multiple sites without rheumatoid factor (CMS/HCC) 1 Occurrences starting 02/11/2017 until 02/08/2018 Erythrocyte sedimentation rate Lab Routine Rheumatoid arthritis of multiple sites without rheumatoid factor (CMS/HCC) 1 Occurrences starting 02/11/2017 until 02/08/2018 documented as of this encounter Visit Diagnoses Diagnosis Rheumatoid arthritis of multiple sites without rheumatoid factor (CMS/HCC) (HCC)- Primary Encounter for long-term (current) use of medications Encounter for long-term (current) use of other medications Hypermobile joints Other joint derangement, not elsewhere classified, unspecified site Meredith-Danlos disease Meredith-Danlos syndrome documented in this encounter Discontinued Medications Medication Sig Discontinue Reason Start Date End Da te potassium chloride (KLOR-CON) 20 mEq packet MIX 1 PACKET IN 4 TO 6 OUNCES OF COLD WATER OR JUICE QD Stop Taking at Discharge 09/26/2016 02/11/2017 azaTHIOprine (IMURAN) 50 mg tablet TAKE 1 TABLET BY ORAL ROUTE 1 TIME EVERY DAY Stop Taking at Discharge 07/25/2016 02/11/2017 adalimumab (HUMIRA PEN) 40 mg/0.8 mL pen injector kit Inject 0.8 mL (40 mg total) under the skin every 14 (fourteen) days. Stop Taking at Discharge 10/08/2016 02/11/2017 documented as of this encounter Care Teams Immigration Guard Relationship Specialty Start Date End Date Feliciano Dash MD PCP - General 07/20/16 02/17/17 documented as of this encounter
--- OUTSIDE RECORDS SUMMARY | 2024-04-29 19:25 | XMS_ITS | Encounter Summary ---
Author Organization [facility] Address [address] [place] [phone] Phone Care Team Providers Care Spinner Open End Name Role Phone Isaiah Quiros MD Unavailable Isaiah Quiros MD Primary Care Provider [phone] Kumar CARRILLO MD, Cash Howard Unavailable [phone] Reason for Visit * Reason Onset Date Comments Not Filling Enbrel Tito 04/23/2018 Encounter Details Date Type Department Care Team (Late st Contact Info) Description 04/23/[address] [address] Tiara Rainey Not Filling Enbrel Tito Social History Tobacco Use Types Packs/Day Years Used Date Smoking Tobacco: Never Alcohol Use Standard Drinks/Week Comments No 0 (1 standard drink = 0.6 oz pur e alcohol) Comments Unknown Sex and Gender Information Value Date Recorded Sex Assigned at Not on file Legal Sex Female 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 She is going back to her surgeon this am & postponed her appt here due to these issues. Pt has appt to see you tomorrow & states she wants to speak to you about the huge sinus infection that was recently found as well. ATIENT PHLEBOTOMIST ATIENT PHLEBOTOMIST * Telephone Encounter - Miriam Frye PA - 04/23/2018 4:45 PM CST Please find out why she is not returning calls. ATIENT PHLEBOTOMIST * Telephone Encounter - Tiara Rainey - 04/23/2018 2:41 PM CST [facility] sent fax to report pt has not returned their calls to fill her Enbrel. If pt wants to cont treatment she can call [facility] @ [phone] ATIENT PHLEBOTOMIST documented in this encounter Plan of Treatment Not on file documented as of this encounter Visit Diagnoses Not on filedocumented in this encounter Care Teams Spinner Open End Relationship Specialty Start Date End Date Isaiah Quiros MD [address] [place] [address] PCP - General Internal Medicine 04/01/17 06/02/20 Isaiah Quiros MD [address] [place] [address] Internal Medicine 02/18/17 03/19/21 Cash Heath III, MD [address] [facility] [address] [place] [address] Rheumatology 04/12/17 documented as of this encounter
--- OUTSIDE RECORDS SUMMARY | 2024-04-29 19:25 | XMS_ITS | Encounter Summary ---
Author Organization [facility] Address [address] [place] [phone] Phone Care Team Providers Care Vending Machine Operator Name Role Phone Isaiah Quiros MD Unavailable Isaiah Quiros MD Primary Care Provider [phone] Kumar CARRILLO MD, Cash Howard Unavailable [phone] Reason for Visit * Reason Onset Date Comments Enbrel Refill 09/20/2017 Encounter Details Date Type Department Care Team (Late st Contact Info) Description 09/20/2017 Telephone [email or web address] [address] [address] Tiara Rainey Enbrel Refill Social History Tobacco Use Types Packs/Day Years Used Date Smoking Tobacco: Never Alcohol Use Standard Drinks/Week Comments No 0 (1 standard drink = 0.6 oz pur e alcohol) Comments Unknown Sex and Gender Information Value Date Recorded Sex Assigned at Not on file 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 4 Syringe 2 09/20/2017 01/27/2018 documented in this encounter Miscellaneous Notes * Telephone Encounter - Tiara Rainey - 09/20/2017 8:21 AM CDT Called pt to verify where she fills the Enbrel. She states she has been getting it from [facility]. Will send script now. * Telephone Encounter - Tiara Rainey - 09/20/2017 8:18 AM CDT ----- Message from LEONARD Melendrez sent at 09/19/2017 4:36 PM CDT ----- Please reorder her enbrel. ty documented in this encounter Plan of Treatment Not on file documented as of this encounter Visit Diagnoses Not on filedocumented in this encounter Care Teams Vending Machine Operator Relationship Specialty Start Date End Date Isaiah Quiros MD [address] [place] [address] PCP - General Internal Medicine 04/01/17 06/02/20 Isaiah Quiros MD [address] [place] [address] Internal Medicine 02/18/17 03/19/21 Cash Heath III, MD [address] [place] [address] Rheumatology 04/12/17 documented as of this encounter
--- OUTSIDE RECORDS SUMMARY | 2024-04-29 19:25 | XMS_ITS | Encounter Summary ---
Author Organization [facility] logy Address [address] [place] [address] Phone Care Team Providers Care Red Hat Linux Engineer Name Role Phone Isaiah Quiros MD Unavailable Isaiah Quiros MD Primary Care Provider [phone] Kumar CARRILLO MD, John J. 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 Gender Identity Female 08/14/2022 11:32 AM CDT Sexual Orientation Straight 02/13/2023 7: 01 AM CDT documented as of this encounter Last Filed Vital Signs Vital Sign Reading Time Taken Comments Blood Pressure 116/70 01/16/2018 11:19 AM CDT Pulse 80 01/16/2018 11:19 AM CDT Temperature - - Respiratory Rate - - Oxygen Saturation - - Inhaled Oxygen Concentration - - Weight 81.6 kg (180 lb) 01/16/2018 11:19 AM CDT Height - - Body Mass Index 29.05 09/19/2017 3:11 PM CDT documented in this encounter Progress Notes * Miriam Frye PA - 01/16/2018 11:15 AM CDT Images from the original note were not included. Subjective/Objective Patient ID: Madalyn Smith is a 42 y.o. female. Chief Complaint Joint pain HPI Her pcp stopped her enbrel a few months ago since she had pneumonia and kept getting uti's, has hx of non-obstructing kidney stones. Her infections have resolved. Joints are swollen and painful. OnlyHad about 8 weeks of enbrel so far. Has gained a lot of weight since pcp started her on lyrica, sheis trying to wean off lyrica. Review of Systems Constitutional: Negative for fatigue [...] Lab Results Component Value Date WBC 7.8 09/20/2017 HGB 11.8 09/20/2017 HCT 37.5 09/20/2017 MCV 84.3 09/20/2017 Lab Results Component Value Date GLUCOSE 87 01/01/2017 CALCIUM 9.7 01/01/2017 SODIUM 141 01/01/2017 POTASSIUM 3.7 01/01/2017 CO2 24 01/01/2017 CHLORIDE 105 01/01/2017 BUNSER 10 01/01/2017 CREATININE 0.94 01/01/2017 Lab Results Component Value Date ALT 29 01/01/2017 AST 21 01/01/2017 ALKPHOS 79 01/01/2017 BILITOT 0.3 01/01/2017 Lab Results Component Value Date SEDRATE 5 09/20/2017 Lab Results Component Value Date CRP 3.7 09/20/2017 Rt Hand U/S 09/2017: Assessment/Plan Diagnoses and all orders for this visit: 1. Rheumatoid arthritis of multiple sites without rheumatoid factor (CMS/HCC) (Primary) Only on enbrel x 8 weeks, will continue it. Had se to imuran in past. Now on enbrel monotherapy. Plaquenil did not help in past. RF neg but has a possible family hx of psoriatic arthritis (father) so if she develops psoriasis diagnosis will change to psoriatic arthritis.l. 2. 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 Other orders - CBC with auto differential; Future - Comprehensive metabolic panel; Future - CRP (acute phase); Future - Erythrocyte sedimentation rate; Future Cosigned by Cash Heath MD at 01/16/2018 4:36 PM CDT documented in this encounter Plan of Treatment Not on file documented as of this encounter Procedures Procedure Name Priority Date/Time Associated Diagnosis Comments CBC WITH AUTO DIFFERENTIAL Routine 01/16/2018 12:09 PM CDT Rheumatoid arthritis of multiple sites without rheumatoid factor (CMS/HCC) Encounter for long-term (current) use of medications ERYTHROCYTE SEDIMENTATION RATE Routine 01/16/2018 12:09 PM CDT Rheumatoid arthritis of multiple sites without rheumatoid factor (CMS/HCC) Encounter for long-term (current) use of medications CRP (ACUTE PHASE) Routine 01/16/2018 12: 09 PM CDT Rheumatoid arthritis of multiple sites without rheumatoid factor (CMS/HCC) Encounter for long-term (current) use of medications COMPREHENSIVE METABOLIC PANEL Routine 01/16/2018 12:09 PM CDT Rheumatoid arthritis of multiple sites without rheumatoid factor (CMS/HCC) Encounter for long-term (current) use of medications documented in this encounter Results * Erythrocyte sedimentation rate (01/16/2018 12:09 PM CDT) Erythrocyte sedimentation rate 14 < OR = 20 mm/h [facility] - Blood specimen (specimen) 01/16/2018 12:09 PM CDT 01/16/2018 12:10 PM CDT Narrative Resulting Agency Comment Performing Organization Information: ?Site ID: ?Name: [facility] ?Address: [facility] [place] [address] ?Director: Bobby Mcarthur us Miriam VALLE LAB BLOOD ORDERAB LES Final Result [facility] - [place] * (ABNORMAL) CBC with auto differential (01/16/2018 12:09 PM CDT) WBC 9.0 3.8 - 10.8 Thousand/u L [facility] - RBC, POC 4.60 3.80 - 5.10 Million/uL [facility] - Hgb 12.3 11.7 - 15.5 g/dL [facility] [place] Hct 37.3 35.0 - 45.0 % [facility] [place] MCV 81.1 80.0 - 100.0 fL [facility] - MCH 26.7(L) 27.0 - 33.0 pg [facility] [place] MCHC 33.0 32.0 - 36.0 g/dL [facility] [place] Rdw 15.5(H) 11.0 - 15.0 % [facility] [place] Platelets 410(H) 140 - 400 Thousand/u L [facility] [place] MPV 8.8 7.5 - 12.5 fL [facility] [place] Neutrophils, abs 5,562 1,500 - 7,800 cells/uL [facility] [place] Lymphocytes, abs 2,610 850 - 3,900 cells/uL [facility] [place] Monocyte abs 486 200 - 950 cells/uL [facility] [place] Eosinophils, abs 252 15 - 500 cells/uL [facility] [place] Basophils, abs 90 0 - 200 cells/uL [facility] [place] Neutrophils 61.8 % [facility] [place] Lymphocyte pct 29.0 % [facility] [place] Monocytes 5.4 % [facility] [place] Eosinophils 2.8 % [facility] [place] Basophils 1.0 % [facility] [place] Blood specimen (specimen) 01/16/2018 12:09 PM CDT 01/16/2018 12:10 PM CDT Narrative Resulting Agency Comment Performing Organization Information: ?Site ID: ?Name: [facility] ?Address: [address] [place] [address] ?Director: Bobby Mcarthur us Miriam Frye PA LAB BLOOD ORDERAB LES Final Result [facility] - [place], [place] * (ABNORMAL) CRP (acute phase) (01/16/2018 12:09 PM CDT) C-RP 8.7(H) <8.0 mg/L [facility] Blood specimen (specimen) 01/16/2018 12:09 PM CDT 01/16/2018 12:10 PM CDT Narrative Resulting Agency Comment Performing Organization Information: ?Site ID: [place] ?Name: [facility] ?Address: [address] [address] ?Director: Curtis Noe D.O., MPH us Miriam VALLE LAB BLOOD ORDERAB LES Final Result [facility] [place] * (ABNORMAL) Comprehensive metabolic panel (01/16/2018 12:09 PM CDT) Glucose 122(H) 65 - 99 mg/dL [facility] [place] Comment: ? Fasting reference interval For someone without known diabetes, a glucose value between 100 and 125 mg/dL is consistent with prediabetes and should be confirmed with a follow-up test. BUN 19 7 - 25 mg/dL [facility] [place] Creatinine 1.03 0.50 - 1.10 mg/dL [facility] [place] eGFR NON-AFR. CAMBODIAN 67 > OR = 60 mL/min/1. 73m2 [facility] [place] EGFR 77 > OR = 60 mL/min/1. 73m2 [facility] [place] BUN/creat ratio NOT APPLICABLE 6 - 22 (calc) [facility] [place] Sodium 139 135 - 146 mmol/L [facility] [place] Potassium, pl 4.2 3.5 - 5.3 mmol/L [facility] [place] Chloride 105 98 - 110 mmol/L [facility] [place] CO2 24 20 - 32 mmol/L [facility] [place] Calcium 9.1 8.6 - 10.2 mg/dL [facility] [place] Protein, sr 6.7 6.1 - 8.1 g/dL [facility] [place] Albumin 3.9 3.6 - 5.1 g/dL [facility] [place] GLOBULIN 2.8 1.9 - 3.7 g/dL (calc) [facility] [place] Alb/glob ratio 1.4 1.0 - 2.5 (calc) [facility] [place] Bilirubin, total 0.2 0.2 - 1.2 mg/dL [facility] [place] Alk phos 83 33 - 115 U/L [facility] [place] AST 15 10 - 30 U/L [facility] [place] ALT (SGPT) 27 6 - 29 U/L [facility] [place] Blood specimen (specimen) 01/16/2018 12:09 PM CDT 01/16/2018 12:10 PM CDT Narrative Resulting Agency Comment Performing Organization Information: ?Site ID: [place] ?Name: [facility] ?Address: [address] [address] ?Director: Curtis Noe D.O., MPH us Miriam [...] syndrome documented in this encounter Care Teams Red Hat Linux Engineer Relationship Specialty Start Date End Date Isaiah Quiros MD [address] [place] [address] PCP - General Internal Medicine 04/01/17 06/02/20 Isaiah Quiros MD [address] [place] [address] Internal Medicine 02/18/17 03/19/21 Cash Heath III, MD [address] [facility] [address] [place] [address] Rheumatology 04/12/17 documented as of this encounter
--- OUTSIDE RECORDS SUMMARY | 2024-04-29 19:25 | XMS_ITS | Encounter Summary ---
Author Organization [facility] Facility Care Team Providers Care Furniture Sales Consultant Name Role Phone Isaiah Quiros MD Unavailable Isaiah Quiros MD Primary Care Provider [phone] Kumar CARRILLO MD, Cash Howard Unavailable [phone] Encounter Details Date Type Department Care Team (Latest Contact Info) Description 08/01/2018 Travel Social History Tobacco Use Types Packs/Day Years Used Date Smoking Tobacco: Never Alcohol Use Standard Drinks/Week Comments No 0 (1 standard drink = 0.6 oz pur e alcohol) Comments Unknown Sex and Gender Information Value Date Recorded Sex Assigned at Not on file 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 Gender Identity Female 08/14/2022 11:32 AM CDT Sexual Orientation Straight 02/13/2023 7: 01 AM CDT documented as of this encounter Plan of Treatment Not on file documented as of this encounter Visit Diagnoses Not on filedocumented in this encounter Care Teams Furniture Sales Consultant Relationship Specialty Start Date End Date Isaiah Quiros MD [address] [place] [address] PCP - General Internal Medicine 04/01/17 06/02/20 Isaiah Quiros MD [address] [place] [address] Internal Medicine 02/18/17 03/19/21 Cash Heath III, MD [address] [address] Rheumatology 04/12/17 documented as of this encounter
--- OUTSIDE RECORDS SUMMARY | 2024-04-29 19:25 | XMS_ITS | Encounter Summary ---
Author Organization [facility] logy Address [address] [place] [phone] Phone Care Team Providers Care Annual Giving Director Name Role Phone Isaiah Quiros MD Unavailable Isaiah Quiros MD Primary Care Provider [phone] Kumar CARRILLO MD, Cash Howard Unavailable [phone] Reason for Visit * Reason Onset Date Comments Orencia SQ Denied 08/14/2018 Pt has to try Simponi & then Xeljanz before cold be approved Encounter Details Date Type Department Care Team (Late st Contact Info) Description 08/14/[address] [address] Tiara Raineyncia SQ Denied (Pt has to try Simponi & then Xeljanz before cold be approved) Social History Tobacco Use Types Packs/Day Years Used Date Smoking Tobacco: Never Alcohol Use Standard Drinks/Week Comments No 0 (1 standard drink = 0.6 oz pur e alcohol) Comments Unknown Sex and Gender Information Value Date Recorded Sex Assigned at Not on file Legal 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 She will have to fail both of these prior to approval for Orencia SQ. I told him BB is going to try for Orencia IV & see if that is covered. documented in this encounter Plan of Treatment Not on file documented as of this encounter Visit Diagnoses Not on filedocumented in this encounter Care Teams Annual Giving Director Relationship Specialty Start Date End Date Isaiah Quiros MD [address] [place] [address] PCP - General Internal Medicine 04/01/17 06/02/20 Isaiah Quiros MD [address] [place] [address] Internal Medicine 02/18/17 03/19/21 Cash Heath III, MD [address] [facility] [address] [place] [address] Rheumatology 04/12/17 documented as of this encounter
--- OUTSIDE RECORDS SUMMARY | 2024-04-29 19:25 | XMS_ITS | Encounter Summary ---
Author Organization [facility] Healthcare Address [address] [place] [address] Care Team Providers Care Student Life Coordinator Name Role Phone Feliciano Dash MD Primary Care Provider [phone] Encounter Details Date Type Department Care Team (Late st Contact Info) Description 12/31/2016 8:56 PM CDT - 01/01/2017 5:41 AM CDT Emergency [facility] Emergency Department [address] [place] [address] Genaro Mueller MD [facility] [address] [place] [address] Discharge Disposition: Discharge to home or self care Social History Tobacco Use Types Packs/Day Years Used Date Smoking Tobacco: Never Alcohol Use Standard Drinks/Week Comments No 0 (1 standard drink = 0.6 oz pur e alcohol) Comments Unknown Sex and Gender Information Value Date Recorded Sex Assigned at Not on file 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 1 each 1 10/08/2016 02/12/20 17 azaTHIOprine (IMURAN) 50 mg tablet TAKE 1 TABLET BY ORAL ROUTE 1 TIME EVERY DAY 30 1 07/25/2016 02/12/20 17 cyclobenzaprine (FLEXERIL) 5 mg tablet TAKE 1 TABLET BY ORAL ROUTE EVERY BEDTIME 30 0 11/03/2015 08/31/19 22 doxycycline (DORYX) 100 mg EC tablet 100 mg every 12 (twelve) hours 12/19/2016 08/31/[address] (CYMBALTA) 60 mg capsule take 1 capsule by oral route every day 0 0 06/29/2015 02/07/20 21 folic acid (FOLVITE) 1 mg tablet TAKE 1 TABLET BY ORAL ROUTE EVERY DAY 90 0 03/14/2016 08/15/19 19 hyoscyamine (OSCIMIN) 0.125 mg Take 0.125 mg by mouth every 3 hours 08/05/2015 08/31/19 22 linaclotide (LINZESS) 145 mcg capsule Take 145 mcg by mouth 09/15/2015 09/01/19 22 omeprazole (PriLOSEC) 10 mg capsule take 2 capsule by oral route every day before a meal 0 0 05/17/2016 08/31/19 22 ondansetron ODT (ZOFRAN-ODT) 8 mg disintegrating tablet DISSOLVE 1 TABLET ON TONGUE EVERY 8 HOURS FOR 2 DAYS 60 tablet 10/11/2016 04/08/20 17 potassium chloride (KLOR-CON) 20 mEq packet MIX 1 PACKET IN 4 TO 6 OUNCES OF COLD WATER OR JUICE QD 0 09/26/2016 02/12/20 17 raNITIdine (ZANTAC) 50 mg/2 mL (25 mg/mL) injection infuse by intravenous route every 8 hours over 0 vial 0 05/17/2016 08/31/19 22 documented as of this encounter Discharge Disposition Disposition Code Departure Means Destination Discharge to home or self care documented in this encounter Plan of Treatment Not on file documented as of this encounter Procedures Procedure Name Priority Date/Time Associated Diagnosis Comments THYROID FUNCTION CASCADE STAT 01/01/2017 3:49 AM CDT XR CHEST PA LATERAL 2 VIEWS Routine 01/01/2017 3:09 AM CDT HCG, QUAL, URINE, POC STAT 01/01/2017 12:46 AM CDT THYROID FUNCTION CASCADE STAT 01/01/2017 12:41 AM CDT URINALYSIS AND REFLEX TO MICROSCOPIC STAT 01/01/2017 12:41 AM CDT TROPONIN I STAT 01/01/2017 12:41 AM CDT DRUGS OF ABUSE SCREEN, URINE WITHOUT CONFIRMATION STAT 01/01/2017 12:41 AM CDT URINALYSIS, MICROSCOPIC ONLY STAT 01/01/2017 12:41 AM CDT CBC WITHOUT DIFFERENTIAL STAT 01/01/2017 12:41 AM CDT LIPASE STAT 01/01/2017 12:41 AM CDT HEPATIC FUNCTION PANEL STAT 01/01/2017 12:41 AM CDT BASIC METABOLIC PANEL STAT 01/01/2017 12:41 AM CDT DISCHARGE LABORATORY CUMULATIVE REPORT 01/01/2017 12:00 AM CDT documented in this encounter Results * TSH reflex to free T4 (01/01/2017 3:49 AM CDT) TSH 0.43 0.30 - 4.20 mcIUnit/mL [facility] Comment: Interpretive Data Hyperthyroid: ??<0.1 mcIUnit/mL Hypothyroid: ??>12.0 mcIUnit/mL Current interpretive data was last revised on 00. Blood specimen (specimen) 01/01/2017 3:49 AM CDT 01/01/2017 3:58 AM CDT us Jermaine Rao MD LAB BLOOD ORDERABLES Final Result [facility] [place] [address] * XR Chest Pa Lateral 2 Views (01/01/2017 3:09 AM CDT) Anatomical Region Laterality Modality Body, Chest N/A Radiographic Smita ging 01/01/2017 3:09 AM CDT Narrative 01/01/2017 3:09 AM CDT NAA STILES M.D. LUIS PHELAN M.D. FINAL REPORT The radiology attending physician has personally reviewed this study, and has reviewed and/or edited this written report and agrees with it. ACC# ??Date Time ??Exam [id number] Dec 31, 2016 22:09:00 [id number] Chest 2 views Frontl ??and ??Lat ACC# ??Date Time ??Exam [id number] Dec 31, 2016 22:09:00 [id number] Chest 2 views Frontl ??and ??Lat EXAMINATION: ?? Chest 2 views HISTORY: Intermittent lower abdominal pain, left leg pain ?? IMPRESSION: ?? Two views of the chest are compared to a prior study dated 03/27/2015. Lung volumes are small. Lungs are clear. There is no pleural effusion, focal consolidation or pneumothorax. The cardiomediastinal silhouette is normal. ?? Requested By: ARA PETERSON ??Salvador Dictated By: ?? LUIS PHELAN M.D. ??on Dec 31 2016 10:28P This document has been electronically signed by: NAA STILES M.D. on Jan 01 2017 11:21A [id number] STILES M.D. LUIS PHELAN M.D. FINAL REPORT The radiology attending physician has personally reviewed this study, and has reviewed and/or edited this written report and agrees with it. Attending: ??ERVIN, ??GENARO Requesting: ??ROSSY, ??ARA Requesting Fax: ?? Attending Fax: ?? Attending ID: ??[id number] Requesting ID: ??[id number] Report To 1 ID: ??[id number] ? Report To 1 Name: ??, ?? Report To 1 FAX: ?? NextGen Order #: ?? Procedure Note Miscellaneous, Not In File / Provider, John, - 01/01/2017 NAA STILES M.D. LUIS PHELAN M.D. FINAL REPORT The radiology attending physician has personally reviewed this study, and has reviewed and/or edited this written report and agrees with it. ACC# Date Time Exam [id number] Dec 31, 2016 22:09:00 [id number] Chest 2 views Frontl and Lat ACC# Date Time Exam [id number] Dec 31, 2016 22:09:00 [id number] Chest 2 views Frontl and Lat EXAMINATION: Chest 2 views HISTORY: Intermittent lower abdominal pain, left leg pain IMPRESSION: Two views of the chest are compared to a prior study dated 03/27/2015. Lung volumes are small. Lungs are clear. There is no pleural effusion, focal consolidation or pneumothorax. The cardiomediastinal silhouette is normal. Requested By: ARA PETERSON M.D. Dictated By: LUIS PHELAN M.D. on Dec 31 2016 10:28P This document has been electronically signed by: NAA STILES M.D. on Jan 01 2017 11:21A [id number] COHEN M.D. FINAL REPORT The radiology attending physician has personally reviewed this study, and has reviewed and/or edited this written report and agrees with it. Attending: GENARO MUELLER Requesting: ARA PETERSON Requesting Fax: Attending Fax: Attending ID: [id number] Requesting ID: [id number] Report To 1 ID: [id number] Report To 1 Name: , Report To 1 FAX: NextGen Order #: [id number] Ara Peterson MD IMG XR PROCEDURES Final Result * hCG, Qual, Urine, POC (01/01/2017 12:46 AM CDT) HCG, ur, POC Negative [facility] Urine 01/01/2017 12:4 6 AM CDT 01/01/2017 1:35 PM CDT Ara Peterson MD LAB BLOOD ORDERABLES Final Resul t [facility] [place] [address] * Drug screen, urine (01/01/2017 12:41 AM CDT) Amphetamines, Class None detected [facility] Comment: Interpretive Data Immunoassay Screen cutoff level 500 ng/mL. Samples containing greater than 500 ng/mL of amphetamine/methamphetamine or other cross-reacting substances are reported as presumptive and submitted for confirmatory testing. See separate confirmatory results for final interpretation.Results are to be used for medical purposes only. ? Current interpretive data was last revised 2015. Barbiturates, Class None detected [facility] Comment: Interpretive Data Immunoassay Screen cutoff level 200 ng/mL. Samples containing greater than 200 ng/mL of barbiturates or other cross-reacting substances are reported as presumptive and submitted for confirmatory testing.See separate confirmatory results for final interpretation.Results are to be used for medical purposes only. Current interpretive data was last revised 2015. Benzodiazepines, ur None [facility] Comment: Interpretive Data Immunoassay Screen cutoff level 200 ng/mL. Samples containing greater than 200 ng/mL of benzodiazepines or other cross-reacting substances are reported as screen positive, but are not routinely submitted for confirmatory testing. If confirmation is required, please contact the laboratory. Results are to be used for medical purposes only. Current interpretive data was last revised 2015. Cannabinoids, Screen Positive Screen [facility] Comment: Interpretive Data Immunoassay Screen cutoff level 50 ng/mL. Samples containing greater than 50 ng/mL of cannabinoids or other cross-reacting substances are reported as presumptive and submitted for confirmatory testing on obstetrics and pediatric patients only. ??Cannabinoids screen result is reported as screen positive for all other adults;confirmation is not performed unless requested. Results are to be used for medical purposes only. ? Current interpretive data was last revised 2015. Cocaine metabolite None detected [facility] Comment: Interpretive Data Immunoassay Screen cutoff level 150 ng/mL. Samples containing greater than 150 ng/mL of cocaine metabolite or other cross-reacting substances are reported as presumptive and submitted for confirmatory testing. See separate confirmatory results for final interpretation. Results are to be used for medical purposes only. Current interpretive data was last revised 2015. Methadone, ur None detected [facility] Comment: Interpretive Data Immunoassay Screen cutoff level 300 ng/mL. Samples containing greater than 300 ng/mL of methadone or other cross-reacting substances are reported as presumptive and submitted for confirmatory testing. ??See separate confirmatory results for final interpretation. ??Results are to be used for medical purposes only. ? Current interpretive data was last revised 2015. Opiates, ur None detected [facility] Comment: Interpretive Data Immunoassay Screen cutoff level 300 ng/mL. Samples containing greater than 300 ng/mL of opiates or other cross-reacting substances are reported as presumptive and submitted for confirmatory testing. ??See separate confirmatory results for final interpretation. ??Testing does not include opioids. ??Results are to be used for medical purposes only. Current interpretive data was last revised 2015. Oxycodone, ur None detected [facility] Comment: Interpretive Data Immunoassay Screen cutoff level 100 ng/mL. ??Samples containing greater than 100 ng/mL of oxycodone or other cross-reacting substances are reported as presumptive and submitted for confirmatory testing. ??See separate confirmatory results for final interpretation. ??Results are to be used for medical purposes only. Current interpretive data was last revised on 2015. Phencyclidine, ur None detected [facility] Comment: Interpretive Data Immunoassay Screen cutoff level 25 ng/mL. Samples containing greater than 25 ng/mL of phencyclidine (PCP) or other cross-reacting substances are reported as presumptive and submitted for confirmatory testing. ??See separate confirmatory results for final interpretation. Results are to be used for medical purposes only. ? Current interpretive data was last revised 2015. Urine 01/01/2017 12:4 1 AM CDT 01/01/2017 1:49 AM CDT us Ara Peterson MD LAB URINE ORDERABLES Final Resul t Performing Organization Address [facility] de Phone Number [facility] [place] [address] * Hepatic function panel (01/01/2017 12:41 AM CDT) AST 21 10 - 45 Units/L [facility] ALT 29 7 - 45 Units/L [facility] Alk phos 79 40 - 130 Units/[facility] Bilirubin, total 0.3 0.1 - 1.2 mg/dL [facility] Bilirubin, direct <0.2 0.1 - 0.3 mg/dL [facility] Protein, pl 7.9 6.5 - 8.5 g/dL [facility] Albumin 4.3 3.5 - 5.0 g/dL [facility] Blood specimen (specimen) 01/01/2017 12:41 AM CDT 01/01/2017 1:49 AM CDT us Ara Peterson MD LAB BLOOD ORDERABLES Final Resul t Performing Organization Address [facility] de Phone Number [facility] [place] [address] * TSH reflex to free T4 (01/01/2017 12:41 AM CDT) TSH 0.69 0.30 - 4.20 mcIUnit/mL [facility] Comment: Interpretive Data Hyperthyroid: ??<0.1 mcIUnit/mL Hypothyroid: ??>12.0 mcIUnit/mL Current interpretive data was last revised on 00. Blood specimen (specimen) 01/01/2017 12:41 AM CDT 01/01/2017 1:49 AM CDT us Ara Peterson MD LAB BLOOD ORDERABLES Final Resul t Performing Organization Address [facility] [place] [address] * Basic metabolic panel (01/01/2017 12:41 AM CDT) [facility] Sodium 141 135 - 145 mmol/L [facility] Potassium, pl 3.7 3.3 - 4.9 mmol/L [facility] Chloride 105 97 - 110 mmol/L [facility] CO2 24 22 - 32 mmol/L [facility] BUN 10 8 - 25 mg/dL [facility] Glucose 87 70 - 199 mg/dL [facility] Creatinine 0.94 0.60 - 1.10 mg/dL [facility] Calcium 9.7 8.5 - 10.3 mg/dL [facility] Anion gap 12 2 - 15 mmol/L [facility] Blood specimen (specimen) 01/01/2017 12:41 AM CDT 01/01/2017 1:49 AM CDT us Ara Peterson MD LAB BLOOD ORDERABLES Final Resul t Performing Organization Address City/[facility]/[place] [address] * Lipase (01/01/2017 12:41 AM CDT) [facility] Lipase 94 10 - 99 Units/L [facility] Blood specimen (specimen) 01/01/2017 12:41 AM CDT 01/01/2017 1:49 AM CDT us Ara Peterson MD LAB [place] [address] * Troponin I (01/01/2017 12:41 AM CDT) [facility] Troponin I <0.03 0.00 - 0.03 ng/mL [facility] Comment: Interpretive Data Serial determinations are recommended for the diagnosis of myocardial infarction ([place] Definition of Myocardial Infarction. ??J Am Robert Cardiol 2012;60:1581-98). Current interpretive data was last revised on 13. Blood specimen (specimen) 01/01/2017 12:41 AM CDT 01/01/2017 1:49 AM CDT us Ara Peterson MD LAB BLOOD ORDERABLES Edited Resu lt - Final Performing Organization Address [facility] Co de Phone Number [facility] [place] [address] * (ABNORMAL) Urinalysis, microscopic only (01/01/2017 12:41 AM CDT) RBC, ur 4(H) 0 - 3 /HPF [facility] WBC, ur 9(H) 0 - 5 /HPF [facility] Bacteria, ur Trace Trace [facility] Epithelial cells, renal, ur 0 0 - 0 /HPF [facility] Epithelial cells, squamous, ur >20 /LPF [facility] Mucus, ur Small /HPF [facility] Urine 01/01/2017 12:4 1 AM CDT 01/01/2017 1:36 AM CDT us Ara Peterson MD LAB URINE ORDERABLES Final Resul t Performing Organization Address [facility] de Phone Number [facility] [place] [address] * (ABNORMAL) Urinalysis reflex to microscopic (01/01/2017 12:41 AM CDT) Color, ur Yellow Yellow [facility] Clarity, ur Cloudy(A) Clear [facility] Specific gravity, ur 1.016 1.003 - 1.030 [facility] pH, ur 5.0 5.0 - 8.0 [facility] Albumin, ur Negative Trace [facility] Glucose, ur ql Negative Negative [facility] Ketones, ur Negative Negative [facility] Bilirubin, ur Negative Negative [facility] Blood, ur Negative Negative [facility] Urobilinogen, ur <2.0 <2.0 mg/dL [facility] Nitrites, ur Negative Negative [facility] Leukocyte esterase, ur 1+(A) Negative [facility] Urine 01/01/2017 12:4 1 AM CDT 01/01/2017 1:36 AM CDT Ara Peterson MD LAB URINE ORDERABLES Final Resul t Performing Organization Address [facility] de Phone Number [facility] [place] [address] * CBC without differential (01/01/2017 12:41 AM CDT) WBC 8.23 3.80 - 9.90 K/cumm [facility] RBC 5.00 3.90 - 5.20 M/cumm [facility] Hgb 14.7 11.9 - 15.5 g/dL [facility] Hct 44.4 35.6 - 45.5 % [facility] MCV 88.8 81.3 - 96.4 fL [facility] MCH 29.4 27.1 - 33.3 pg [facility] MCHC 33.1 32.3 - 35.7 g/dL [facility] RDW CV 13.3 11.1 - 14.9 % [facility] RDW SD 43.7 35.7 - 48.1 fL [facility] NRBC 0.0 0.0 - 0.2 % [facility] NRBC abs 0.00 0.00 - 0.01 K/cumm [facility] Plt 349 150 - 400 K/cumm [facility] MPV 9.7 9.1 - 12.3 fL [facility] Blood specimen (specimen) 01/01/2017 12:41 AM CDT 01/01/2017 1:48 AM CDT Ara Peterson MD LAB BLOOD ORDERABLES Final Resul t Performing Organization Address [facility] Co de Phone Number [facility] [place] [address] * DISCHARGE LABORATORY CUMULATIVE REPORT (01/01/2017 12:00 AM CDT) Narrative 01/01/2017 12:00 AM CDT Ordered by an unspecified provider. us Historical Provider LAB BLOOD ORDERABLES Abigail l Result documented in this encounter Visit Diagnoses Not on filedocumented in this encounter Care Teams Student Life Coordinator Relationship Specialty Start Date End Date Feliciano Dash MD PCP - General 07/20/16 02/17/17 documented as of this encounter
--- OUTSIDE RECORDS SUMMARY | 2024-04-29 19:25 | XMS_ITS | Encounter Summary ---
Author Organization [facility] Healthcare Address [address] [place] [address] Care Team Providers Care Manager Diabetes Name Role Phone Unavailable Primary Care Provider Unavailabl e Encounter Details Date Type Department Care Team (Late st Contact Info) Description 04/02/2014 11:44 AM HOME ENERGY CONSULTANT SUPERVISOR - 04/02/2014 3:07 PM HOME ENERGY CONSULTANT SUPERVISOR Hospital Encounter [facility] Hari Hanson MD [address] [place] [address] Gastritis and gastroduodenitis; Tobacco use disorder Social History Tobacco Use Types Packs/Day Years Used Date Smoking Tobacco: Never Assessed Comments Unknown Sex and Gender Information Value Date Recorded Sex Assigned at Not on file Legal Sex Female 9:24 PM HOME ENERGY CONSULTANT SUPERVISOR Gender Identity Female 08/14/2022 11:32 AM CDT Sexual Orientation Straight 02/13/2023 7: 01 AM CDT documented as of this encounter Last Filed Vital Signs Vital Sign Reading Time Taken Comments Blood Pressure 103/72 04/02/2014 11:57 AM HOME ENERGY CONSULTANT SUPERVISOR Pulse 86 04/02/2014 11:57 AM HOME ENERGY CONSULTANT SUPERVISOR Temperature 36.9 ??C (98.4 ??F) 04/02/2014 11:[address] Respiratory Rate - - Oxygen Saturation 100% 04/02/2014 11:57 AM HOME ENERGY CONSULTANT SUPERVISOR Inhaled Oxygen Concentration - - Weight 77.1 kg (170 lb) 04/02/2014 11:57 AM HOME ENERGY CONSULTANT SUPERVISOR Height 167.6 cm (5' 6 ) 04/02/2014 11:57 AM HOME ENERGY CONSULTANT SUPERVISOR Body Mass Index 27.44 04/02/2014 11:57 AM HOME ENERGY CONSULTANT SUPERVISOR documented in this encounter Plan of Treatment Not on file documented as of this encounter Procedures Procedure Name Priority Date/Time Associated Diagnosis Comments URINALYSIS AND REFLEX TO MICROSCOPIC AND CULTURE Routine 04/02/2014 12:39 PM HOME ENERGY CONSULTANT SUPERVISOR CBC WITH AUTO DIFFERENTIAL Routine 04/02/2014 12:31 PM HOME ENERGY CONSULTANT SUPERVISOR LIPASE Routine 04/02/2014 12:31 PM HOME ENERGY CONSULTANT SUPERVISOR COMPREHENSIVE METABOLIC PANEL Routine 04/02/2014 12:31 PM HOME ENERGY CONSULTANT SUPERVISOR CT ABDOMEN PELVIS W CONTRAST Routine 04/02/2014 12:00 AM HOME ENERGY CONSULTANT SUPERVISOR documented in this encounter Results * (ABNORMAL) Urinalysis reflex to microscopic and culture (04/02/2014 12:39 PM HOME ENERGY CONSULTANT SUPERVISOR) Ur Collection Type CLEAN CATCH 04/02/2014 12:56 PM HOME ENERGY CONSULTANT SUPERVISOR [employer] HISTORICAL RESULTS Ur Culture Indicated? C&S NOT INDICATED 04/02/2014 12:56 PM [facility] HISTORICAL RESULTS Urine Color STRAW YELLOW 04/02/2014 12:56 PM [facility] HISTORICAL RESULTS Urine Clarity HAZY CLEAR 04/02/2014 12:56 PM [facility] HISTORICAL RESULTS Urine Glucose (UA) NORMAL NORMAL mg/dL 04/02/2014 12:56 PM [facility] HISTORICAL RESULTS Urine Bilirubin NEGATIVE NEGATIVE mg/dl 04/02/2014 12:56 PM [facility] HISTORICAL RESULTS Urine Ketones NEGATIVE NEGATIVE mg/dL 04/02/2014 12:56 PM [facility] HISTORICAL RESULTS Ur Specific [place] 1.014 1.005 - 1.025 04/02/2014 12:56 PM [facility] HISTORICAL RESULTS Urine Blood NEGATIVE NEGATIVE mg/dl 04/02/2014 12:56 PM [facility] HISTORICAL RESULTS Urine pH 6.5 5.0 - 8.0 04/02/2014 12:56 PM [facility] HISTORICAL RESULTS Urine Protein NEGATIVE NEGATIVE mg/dL 04/02/2014 12:56 PM [facility] HISTORICAL RESULTS Urine Urobilinogen NORMAL NORMAL mg/dL 04/02/2014 12:56 PM HOME ENERGY CONSULTANT SUPERVISOR [facility] HISTORICAL RESULTS Urine Nitrite NEGATIVE NEGATIVE 04/02/2014 12:56 PM HOME ENERGY CONSULTANT SUPERVISOR [facility] HISTORICAL RESULTS Ur Leukocyte Esterase 250(H) NEGATIVE Andrey/ul 04/02/2014 12:56 PM HOME ENERGY CONSULTANT SUPERVISOR [facility] HISTORICAL RESULTS Ur Microscopic Review Indicated or Ordered 04/02/2014 12:56 PM HOME ENERGY CONSULTANT SUPERVISOR [facility] HISTORICAL RESULTS Urine RBC 2 0 - 2 /HPF 04/02/2014 12:56 PM HOME ENERGY CONSULTANT SUPERVISOR [facility] HISTORICAL RESULTS Urine WBC 1 0 - 2 /HPF 04/02/2014 12:56 PM HOME ENERGY CONSULTANT SUPERVISOR [facility] HISTORICAL RESULTS Urine Bacteria Rare /HPF 04/02/2014 12:56 PM HOME ENERGY CONSULTANT SUPERVISOR [facility] HISTORICAL RESULTS Urine Mucus Rare /LPF Ur Squamous Epith Cells Rare /HPF 04/02/2014 12:56 PM HOME ENERGY CONSULTANT SUPERVISOR [facility] HISTORICAL RESULTS 04/02/2014 12:3 9 PM HOME ENERGY CONSULTANT SUPERVISOR 04/02/2014 12:48 PM HOME ENERGY CONSULTANT SUPERVISOR Narrative [facility] HISTORICAL RESULTS - 04/02/2014 12:56 PM HOME ENERGY CONSULTANT SUPERVISOR Collected By kr ?? 041 [facility] MICROBIOLOGY - GENERAL OR DERABLES Final Result [facility] HISTORICAL RESULTS * (ABNORMAL) Lipase (04/02/2014 12:31 PM HOME ENERGY CONSULTANT SUPERVISOR) Lipase 107(H) 13 - 60 U/L 04/02/2014 1:09 PM HOME ENERGY CONSULTANT SUPERVISOR [facility] HISTORICAL RESULTS 04/02/2014 12:3 1 PM HOME ENERGY CONSULTANT SUPERVISOR 04/02/2014 12:33 PM HOME ENERGY CONSULTANT SUPERVISOR [facility] BLOOD ORDERABLES Final Re sult [facility] HISTORICAL RESULTS * (ABNORMAL) Comprehensive metabolic panel (04/02/2014 12:31 PM HOME ENERGY CONSULTANT SUPERVISOR) Sodium 141 135 - 145 mmol/L 04/02/2014 1:09 PM HOME ENERGY CONSULTANT SUPERVISOR [facility] HISTORICAL RESULTS Comment: Due to a Calibration adjustment, results may vary by +2 mmol/l as compared to results obtained prior to ?? March 24, 2014 Potassium 4.6 3.3 - 5.1 mmol/L 04/02/2014 1:09 PM [facility] HISTORICAL RESULTS Comment: Due to a Calibration adjustment, results may vary by +0.2 mmol/l as compared to results obtained prior to March 24, 2014 Chloride 107 96 - 108 mmol/L 04/02/2014 1:09 PM [facility] HISTORICAL RESULTS Carbon Dioxide 22 22 - 32 mmol/L 04/02/2014 1:09 PM [facility] HISTORICAL RESULTS Anion Gap 12 7 - 16 04/02/2014 1:09 PM [facility] HISTORICAL RESULTS Glucose 90 70 - 100 mg/dL 04/02/2014 1:09 PM [facility] HISTORICAL RESULTS Comment:As of March 24 14 new normal range in use. BUN 16 6 - 20 mg/dL 04/02/2014 1:09 PM [facility] HISTORICAL RESULTS Creatinine 0.6 0.5 - 1.1 mg/dL 04/02/2014 1:09 PM [facility] HISTORICAL RESULTS Kidney Disease Stage > 90 mL/MIN 04/02/2014 1:09 PM [facility] HISTORICAL RESULTS Comment: NOTE; ??The GFR is an estimated [...] ? Kidney failure or on dialysis @ Calcium 8.9 8.6 - 10.0 mg/dL Total Protein 6.8 6.4 - 8.3 g/dL 04/02/2014 1:09 PM HOME ENERGY CONSULTANT SUPERVISOR [facility] HISTORICAL RESULTS Albumin 4.2 3.5 - 5.2 g/dL 04/02/2014 1:09 PM HOME ENERGY CONSULTANT SUPERVISOR [facility] HISTORICAL RESULTS Globulin 2.6 2.3 - 3.5 gm/dL Albumin/Globulin Ratio 1.6 1.1 - 1.8 Total Bilirubin 0.2 0.0 - 1.2 mg/dL 04/02/2014 1:09 PM HOME ENERGY CONSULTANT SUPERVISOR [facility] H[facility]ORICAL RESULTS AST 30 0 - 32 U/L Comment: SPECIMEN SLIGHTLY HEMOLYZED: Hemolysis interferes with the above test. ALT 39(H) 0 - 33 U/L Alkaline Phosphatase 67 35 - 104 U/L 04/02/2014 12:3 1 PM HOME ENERGY CONSULTANT SUPERVISOR 04/02/2014 12:33 PM HOME ENERGY CONSULTANT SUPERVISOR us [facility] BLOOD ORDERABLES Final Re sult [facility] HISTORICAL RESULTS * (ABNORMAL) CBC with auto differential (04/02/2014 12:31 PM HOME ENERGY CONSULTANT SUPERVISOR) WBC 7.6 4.6 - 10.2 x10 3/ul 04/02/2014 12:41 PM [facility] HISTORICAL RESULTS RBC 4.78 3.76 - 4.80 x10 6/ul 04/02/2014 12:41 PM [facility] HISTORICAL RESULTS Hemoglobin 14.4 11.0 - 15.0 g/dl Hct 43.4(H) 33.0 - 43.0 % MCV 90.8 80.0 - 97.0 fl MCH 30.1 27.0 - 31.2 pg MCHC 33.2 31.8 - 35.4 g/dl 04/02/2014 12:41 PM [facility] HISTORICAL RESULTS RDW 12.5 11.6 - 14.8 % Plt Count 291 124 - 400 x10 3/ul MPV 8.7 7.4 - 10.4 fl 04/02/2014 12:41 PM [facility] HISTORICAL RESULTS Differential Method AUTOMATED DIFF --------- -- 04/02/2014 12:41 PM [facility] HISTORICAL RESULTS Neut % 57.9 37.0 - 85.0 % 04/02/2014 12:41 PM [facility] HISTORICAL RESULTS Immature Gran % 0.5 0.0 - 3.0 % 04/02/2014 12:41 PM [facility] HISTORICAL RESULTS Lymph % 31.9 5.0 - 45.0 % 04/02/2014 12:41 PM [facility] HISTORICAL RESULTS Slope % 6.7 3.0 - 15.0 % 04/02/2014 12:41 PM [facility] HISTORICAL RESULTS Eos % 1.7 0.0 - 7.0 % 04/02/2014 12:41 PM [facility] HISTORICAL RESULTS Baso % 1.3 0.0 - 2.0 % 04/02/2014 12:41 PM [facility] HISTORICAL RESULTS ABSOLUTE COUNTS ABSOLUTE COUNTS --------- -- 04/02/2014 12:41 PM [facility] HISTORICAL RESULTS Absolute Neuts (auto) 4.4 1.7 - 8.7 x10 3/ul 04/02/2014 12:41 PM HOME ENERGY CONSULTANT SUPERVISOR [facility] Immature Gran # 0.0 0.0 - 0.3 x10 3/ul 04/02/2014 12:41 PM HOME ENERGY CONSULTANT SUPERVISOR [facility] HISTORICAL RESULTS Absolute Lymphs (auto) 2.4 0.2 - 4.6 x10 3/ul 04/02/2014 12:41 PM HOME ENERGY CONSULTANT SUPERVISOR [facility] HISTORICAL RESULTS Absolute Monos (auto) 0.5 0.1 - 1.5 x10 3/ul 04/02/2014 12:41 PM HOME ENERGY CONSULTANT SUPERVISOR [facility] HISTORICAL RESULTS Absolute Eos (auto) 0.1 0.0 - 0.7 x10 3/ul 04/02/2014 12:41 PM HOME ENERGY CONSULTANT SUPERVISOR [facility] HISTORICAL RESULTS Absolute Basos (auto) 0.1 0.0 - 0.2 x10 3/ul 04/02/2014 12:41 PM HOME ENERGY CONSULTANT SUPERVISOR [facility] HISTORICAL RESULTS 04/02/2014 12:3 1 PM HOME ENERGY CONSULTANT SUPERVISOR 04/02/2014 12:33 PM HOME ENERGY CONSULTANT SUPERVISOR us [facility] BLOOD ORDERABLES Final Re sult [facility] HISTORICAL RESULTS * CT Abdomen Pelvis W Contrast (04/02/2014 12:00 AM HOME ENERGY CONSULTANT SUPERVISOR) Anatomical Region Laterality Modality Body N/A Computed Tomogra phy 04/02/2014 Impressions 04/02/2014 2:19 PM HOME ENERGY CONSULTANT SUPERVISOR ??1. ??No acute inflammatory abnormality within the abdomen or pelvis. 2. ??Bilateral nonobstructing renal calculi. 3. ??Hepatic lesions as described above, some low attenuation but not meeting features of simple cysts with 1 having brisk vascular enhancement. ??These may all represent hemangiomas but are incompletely characterize. ??A non emergent hepatic mass protocol MRI is recommended for attempt at characterization. THIS IS AN ELECTRONICALLY VERIFIED REPORT 04/02/2014 2:14 PM: ??Eddie Montano M.D. Eddie Montano M.D. CH: 02:14 PM 02:14 PM BM [EOD] Narrative 04/02/2014 2:19 PM HOME ENERGY CONSULTANT SUPERVISOR EXAMINATION: ??CT abdomen pelvis with contrast. HISTORY: ??Mid upper abdominal pain with nausea for 1 month. TECHNIQUE: ??Following intravenous administration of 100 mL Omnipaque 350 intravenous contrast via the right antecubital vein post contrast images were obtained through the abdomen and pelvis. COMPARISON: ??None. FINDINGS: ??Mild reticular opacities are present in the lung bases. ??No pleural effusion. Abdomen: ??In the subpleural right hepatic lobe there is a 1.3 cm low attenuation lesion (series 3 image 29) not meeting criteria for a cyst. ?? Additional low attenuation lesions are also present, 0.6 cm (image 36) and 0.5 cm (36) in the right hepatic lobe. A vascular enhancing lesion in the right hepatic lobe inferiorly is noted measuring 1 cm (series 3 image 55), indeterminate statistically may be a flash filling hemangioma. ??There is an additional hypodensity more anteriorly on series 3 image 51. Gallbladder is decompressed. Spleen, pancreas, and both adrenal glands are normal. ??Bilateral renal calculi are noted, largest in the right kidney 0.4 cm (series 3 image 49) and the largest in the left kidney 0.4 cm. ??Subcentimeter renal lesions are noted bilaterally too small to further characterize. ??No ureteral calculi are identified. Linear area of low attenuation in the left splenic vein is most likely due to mixing artifact as seen on the coronal image. ?? Stomach and duodenum are within normal limits. ??No evidence of bowel obstruction. ??Moderate diverticulosis is seen in the sigmoid colon. ??No evidence of acute diverticulitis. ??No free intraperitoneal air is identified. ?? Terminal ileum is unremarkable. A normal appendix is identified as seen on coronal series 5 image 26, on axial series 3 image 101. Lymph nodes are present in the abdomen not meeting pathologic criteria for size. Pelvis: ??Urinary bladder is unremarkable. ??No urinary bladder calculi. ??Uterus is present. ??There is fullness in the adnexa which may be physiologic. ??No free fluid or pathologic adenopathy in the pelvis. Bone windows demonstrate no acute or aggressive osseous abnormality. Procedure Note Provider, MD John - 09/07/2020 EXAMINATION: CT abdomen pelvis with contrast. HISTORY: Mid upper abdominal pain with nausea for 1 month. TECHNIQUE: Following intravenous administration of 100 mL Omnipaque 350 intravenous contrast via the right antecubital vein post contrast imageswere obtained through the abdomen and pelvis. COMPARISON: None. FINDINGS: Mild reticular opacities are present in the lung bases. Nopleural effusion. Abdomen: In the subpleural right hepatic lobe there is a 1.3 cm low attenuation lesion (series 3 image 29) not meeting criteria for a cyst. Additional low attenuation lesions are also present, 0.6 cm (image 36) and0.5 cm (36) in the right hepatic lobe. A vascular enhancing lesion in theright hepatic lobe inferiorly is noted measuring 1 cm (series 3 image 55), indeterminate statistically may be a flash filling hemangioma. There isan additional hypodensity more anteriorly on series 3 image 51. Gallbladder is decompressed. Spleen, pancreas, and both adrenal glands are normal. Bilateral renalcalculi are noted, largest in the right kidney 0.4 cm (series 3 image 49) and the largest in the left kidney 0.4 cm. Subcentimeter renal lesions are noted bilaterally too small to further characterize. No ureteral calculi are identified. Linear area of low attenuation in the left splenic vein is most likely dueto mixing artifact as seen on the coronal image. Stomach and duodenum are within normal limits. No evidence of bowel obstruction. Moderate diverticulosis is seen in the sigmoid colon. No evidence of acute diverticulitis. No free intraperitoneal air isidentified. Terminal ileum is unremarkable. A normal appendix is identified as seen on coronal series 5 image 26, on axial series 3 image 101. Lymph nodes are present in the abdomen not meeting pathologic criteria for size. Pelvis: Urinary bladder is unremarkable. No urinary bladder calculi.Uterus is present. There is fullness in the adnexa which may be physiologic. No free fluid or pathologic adenopathy in the pelvis. Bone windows demonstrate no acute or aggressive osseous abnormality. IMPRESSION: 1. No acute inflammatory abnormality within the abdomen or pelvis. 2. Bilateral nonobstructing renal calculi. 3. Hepatic lesions as described above, some low attenuation but notmeeting features of simple cysts with 1 having brisk vascular enhancement. Thesemay all represent hemangiomas but are incompletely characterize. A nonemergent hepatic mass protocol MRI is recommended for attempt atcharacterization. THIS IS AN ELECTRONICALLY VERIFIED REPORT 04/02/2014 2:14 PM: Eddie Montano M.D. Eddie Montano M.D. CH: 02:14 PM 02:14 PM [facility] [EOD] Lana VALLE IMJuanis CT PROCEDURES Final Resul t documented in this encounter Visit Diagnoses Diagnosis Gastritis and gastroduodenitis Unspecified gastritis and gastroduodenitis without mention of hemorrhage Tobacco use disorder documented in this encounter
--- OUTSIDE RECORDS SUMMARY | 2024-04-29 19:25 | XMS_ITS | Encounter Summary ---
Author Organization [facility] logy Address [address] [place] [phone] Phone Care Team Providers Care Air Quality Chemist Name Role Phone Isaiah Quiros MD Unavailable Isaiah Quiros MD Primary Care Provider [phone] Kumar CARRILLO MD, John J. 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 Gender Identity Female 08/14/2022 11:32 AM CDT Sexual Orientation Straight 02/13/2023 7: 01 AM CDT documented as of this encounter Last Filed Vital Signs Vital Sign Reading Time Taken Comments Blood Pressure 122/88 08/01/2018 11:18 AM CDT Pulse 100 08/01/2018 11:18 AM CDT Temperature - - Respiratory Rate - - Oxygen Saturation - - Inhaled Oxygen Concentration - - Weight 85.7 kg (189 lb) 08/01/2018 11:18 AM CDT Height 167.6 cm (5' 6 ) 08/01/2018 11:18 AM CDT Body Mass Index 30.51 08/01/2018 11:18 AM CDT documented in this encounter Patient Instructions * Patient Instructions* Miriam Frye PA - 08/01/2018 11:00 AM CDT Patient Education Triamcinolone (By injection) Triamcinolone ([id number]-km-JFZ-[id number]-lone) Treats many diseases and conditions, especially problems [...] pharmacist before using any other medicine, including mpbe-cld-qbvckaz medicines, vitamins, and herbal products. ?? There [...] may report side effects to FDA at 9-211-DXP-8588 ?? 2017 [employer] Information is for End User's use only and may not be sold, redistributed or otherwise used for commercial purposes. The above information is an media aid only. It is not intended as medical advice for individual conditions or treatments. Talk to your doctor, nurse or pharmacist before following any medical regimen to see if it is safe and effective for you. Patient Education Abatacept (By injection) Abatacept (c-PDD-c-sept) Treats moderate to severe rheumatoid arthritis (RA) and psoriatic arthritis in adults and moderate to severe juvenile idiopathic arthritis in children 2 years of age or older. Brand Name(s): Orencia, Orencia ClickJect Autoinjector, Orencia Pre-Filled Syringe There may be other brand names for this medicine. When This Medicine Should Not Be Used: This medicine is not right for everyone. Do not use it if you had an allergic reaction to abatacept. How to Use This Medicine: Injectable ?? A nurse or other trained health professional will give you this medicine. This medicine is givenas a shot under your skin or into a vein. ?? You may be taught how to give your medicine at home. Make sure you understand all instructions before giving yourself an injection. Do not use more medicine or use it more often than your doctor tells you to. ?? This medicine is available in 3 forms: a vial (glass container), a prefilled syringe, or a ClickJect??? autoinjector. The prefilled syringe and ClickJect??? autoinjector are the dosage forms you can use at home. ?? You will be shown the body areas where this shot can be given. Use a different body area each time you give yourself a shot. Keep track of where you give each shot to make sure you rotate body areas. Do not inject into skin areas that are red, bruised, tender, scaly, or hard, or have scars or stretch phillip. ?? Use a new needle and syringe each time you inject your medicine. ?? Allow the medicine to warm to room temperature for 30 minutes before you use it. Do not warm it in any other way. ?? Do not remove the needle cover from the prefilled syringe or ClickJect??? autoinjector until youare ready to use it. ?? Check the liquid in the prefilled syringe or ClickJect??? autoinjector. It should be clear and colorless or slightly yellow. Do not use the medicine if the liquid is cloudy, discolored, if you seeparticles in it, or if the prefilled syringe or ClickJect??? autoinjector looks cracked or broken. ?? If the amount of liquid in the prefilled syringe does not fall at or just above the fill line, do not use that syringe. ?? Read and follow the patient instructions that come with this medicine. Talk to your doctor or pharmacist if you have any questions. ?? Missed dose: Call your doctor or pharmacist for instructions. ?? If you store this medicine at home, keep it in the refrigerator. Do not freeze. ?? Throw away used needles in a hard, closed container that the needles cannot poke through. Keep this container away from children and pets. Drugs and Foods to Avoid: Ask your doctor or pharmacist before using any other medicine, including pibd-dyu-ekfamiu medicines, vitamins, and herbal products. ?? Some medicines can affect how abatacept works. Tell your doctor if you are using adalimumab, anakinra, certolizumab, etanercept, golimumab, infliximab, rituximab, or tocilizumab. ?? While you are being treated with this medicine or within 3 months after using it, do not have any vaccines without your doctor's approval. Your child's vaccines need to be current before treatmentwith abatacept. Warnings While Using This Medicine: ?? Tell your doctor if you are or , or if you have cancer, diabetes, lung or breathing problems (including COPD), any infection (including the flu), hepatitis B, tuberculosis (TB), or are scheduled to have surgery. ?? This medicine may cause infections. ?? You will need a skin test for TB before you start using this medicine. Tell your doctor if you or anyone in your home has ever had a positive reaction to a TB skin test. ?? Your doctor will do lab tests [...] how much or how often you urinate, painful urination ?? Dizziness or lightheadedness ?? Fast, slow, or pounding heartbeat ?? Fever, chills, cough, sore throat, runny or stuffy nose, tiredness, and body aches ?? Trouble breathing If you notice these less serious side effects, talk with your doctor: ?? Back pain ?? Headache ?? Nausea, stomach upset ?? Pain, itching, burning, redness, swelling, or a lump under your skin where the shot is given If you notice other side effects that you think are caused by this medicine, tell your doctor. Call your doctor for medical advice about side effects. You may report side effects to FDA at 2-591-IHA-9303 ?? 2017 [employer] Information is for End User's use only and may not be sold, redistributed or otherwise used for commercial purposes. The above information is an media aid only. It is not intended as medical advice for individual conditions or treatments. Talk to your doctor, nurse or pharmacist before following any medical regimen to see if it is safe and effective for you. documented in this encounter Progress Notes * Miriam Frye PA - 08/01/2018 11:00 AM CDT Images from the original note were not included. Subjective/Objective Patient ID: Madalyn Smith is a 43 y.o. female. Chief Complaint Joint pain HPI Pt was in the hospital 05/10 and had diarrhea x 4 weeks but it was not due to c diff. Her K got low.Was hospitalized for 4 d. Has been stopping enbrel a lot because she had a lot of URI's since last visit. Hands and wrists are painful and swollen. Has been taking her enbrel for past month only. Has not been here since 09/06 Missed last 3 appts. Review of Systems Constitutional: Negative for fatigue [...] Labs Lab Results Component Value Date WBC 9.0 01/16/2018 HGB 12.3 01/16/2018 HCT 37.3 01/16/2018 MCV 81.1 01/16/2018 Lab Results Component Value Date GLUCOSE 122 (H) 01/16/2018 CALCIUM 9.1 01/16/2018 SODIUM 139 01/16/2018 POTASSIUM 4.2 01/16/2018 CO2 24 01/16/2018 CHLORIDE 105 01/16/2018 BUNSER 19 01/16/2018 CREATININE 1.03 01/16/2018 Lab Results Component Value Date ALT 27 01/16/2018 AST 15 01/16/2018 ALKPHOS 83 01/16/2018 BILITOT 0.2 01/16/2018 Lab Results Component Value Date SEDRATE 14 01/16/2018 Lab Results Component Value Date CRP 8.7 (H) 01/16/2018 Rt Hand U/S 09/2017: Assessment/Plan Diagnoses and all orders for this visit: 1. Rheumatoid arthritis of multiple sites without rheumatoid factor (CMS/HCC) (Primary) she has not been here since 09/06, missed last 3 appts. Taking ehr enbrel x 1 mo. Does not think it is helping anymore. Due to burden of dz will give her 100mg of triamcinolone im today, discussed risks of systemic steroids, to watch carbs in diet and take ca+ vit d 1200mg qd. Will change to Orenciasq (drives 1 h to get here), discussed potential se and gave pt pamphlet on Orencia to read about and to call us if she has any infections. Advised to come in for 1st shot in the office so we can monitor her for any potential allx reactions. Had se to imuran in past Plaquenil did not help in past. 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 Other orders - CBC with auto differential; Future - Comprehensive metabolic panel; Future - CRP (acute phase); Future - Erythrocyte sedimentation rate; Future Cosigned by Cash Heath III, MD at 08/02/2018 12:15 PM CDT documented in this encounter Plan of Treatment Not on file documented as of this encounter Procedures Procedure Name Priority Date/Time Associated Diagnosis Comments CBC WITH AUTO DIFFERENTIAL Routine 08/01/2018 12:00 PM CDT Rheumatoid arthritis of multiple sites without rheumatoid factor (CMS/HCC) Encounter for long-term (current) use of medications ERYTHROCYTE SEDIMENTATION RATE Routine 08/01/2018 12:00 PM CDT Rheumatoid arthritis of multiple sites without rheumatoid factor (CMS/HCC) Encounter for long-term (current) use of medications CRP (ACUTE PHASE) Routine 08/01/2018 12: 00 PM CDT Rheumatoid arthritis of multiple sites without rheumatoid factor (CMS/HCC) Encounter for long-term (current) use of medications COMPREHENSIVE METABOLIC PANEL Routine 08/01/2018 12:00 PM CDT Rheumatoid arthritis of multiple sites without rheumatoid factor (CMS/HCC) Encounter for long-term (current) use of medications documented in this encounter Results * Erythrocyte sedimentation rate (08/01/2018 12:00 PM CDT) Erythrocyte sedimentation rate 8 < OR = 20 mm/h [facility] Blood specimen (specimen) 08/01/2018 12:00 PM CDT 08/01/2018 12:01 PM CDT Narrative Resulting Agency Comment Performing Organization Information: ?Site ID: ?Name: [facility] ?Address: [id number] [place] [address] ?Director: Bobby Mcarthur Miriam VALLE LAB BLOOD ORDERAB LES Final Result [facility] [place] * CRP (acute phase) (08/01/2018 12:00 PM CDT) C-RP 3.3 <8.0 mg/L [facility] [place] Blood specimen (specimen) 08/01/2018 12:00 PM CDT 08/01/2018 12:01 PM CDT Narrative Resulting Agency Comment Performing Organization Information: ?Site ID: [place] ?Name: [facility] ?Address: [address] [place] [phone] ?Director: Curtis Noe D.O., MPH Miriam VALLE LAB BLOOD ORDERAB LES Final Result [facility] [place] * Comprehensive metabolic panel (08/01/2018 12:00 PM CDT) Glucose 70 65 - 99 mg/dL [facility] [place] Comment: ? Fasting reference interval BUN 14 7 - 25 mg/dL [facility] [place] Creatinine 0.95 0.50 - 1.10 mg/dL [facility] [place] eGFR NON-AFR. [place] 73 > OR = 60 mL/min/1. 73m2 [facility] [place] EGFR 84 > OR = 60 mL/min/1. 73m2 [facility] [place] BUN/creat ratio NOT APPLICABLE 6 - 22 (calc) [facility] [place] Sodium 140 135 - 146 mmol/L [facility] [place] Potassium, pl 4.2 3.5 - 5.3 mmol/L [facility] [place] Chloride 107 98 - 110 mmol/L [facility] [place] CO2 25 20 - 32 mmol/L [facility] [place] Calcium 8.9 8.6 - 10.2 mg/dL [facility] [place] Protein, sr 7.1 6.1 - 8.1 g/dL [facility] [place] Albumin 4.0 3.6 - 5.1 g/dL [facility] [place] GLOBULIN 3.1 1.9 - 3.7 g/dL (calc) [facility] [place] Alb/glob ratio 1.3 1.0 - 2.5 (calc) [facility] [place] Bilirubin, total 0.2 0.2 - 1.2 mg/dL [facility] [place] Alk phos 77 33 - 115 U/L [facility] [place] AST 20 10 - 30 U/L [facility] [place] ALT (SGPT) 22 6 - 29 U/L [facility] [place] Blood specimen (specimen) 08/01/2018 12:00 PM CDT 08/01/2018 12:01 PM CDT Narrative Resulting Agency Comment Performing Organization Information: ?Site ID: [place] ?Name: [facility] ?Address: [address] [place] [address] [place] [id number] ?Director: Curtis Noe D.O., MPH us Miriam VALLE LAB BLOOD ORDERAB LES Final Result [facility] [place] * (ABNORMAL) CBC with auto differential (08/01/2018 12:00 PM CDT) WBC 8.1 3.8 - 10.8 Thousand/u L [facility] [place] RBC, POC 4.70 3.80 - 5.10 Million/uL [facility] Hgb 11.3(L) 11.7 - 15.5 g/dL [facility] Hct 36.7 35.0 - 45.0 % [facility] MCV 78.1(L) 80.0 - 100.0 fL [facility] MCH 24.0(L) 27.0 - 33.0 pg [facility] MCHC 30.8(L) 32.0 - 36.0 g/dL [facility] Rdw 15.4(H) 11.0 - 15.0 % [facility] Platelets 341 140 - 400 Thousand/u L [facility] MPV 9.3 7.5 - 12.5 fL [facility] Neutrophils, abs 4,617 1,500 - 7,800 cells/uL [facility] Lymphocytes, abs 2,697 850 - 3,900 cells/uL [facility] Monocyte abs 608 200 - 950 cells/uL [facility] Eosinophils, abs 97 15 - 500 cells/uL [facility] Basophils, abs 81 0 - 200 cells/uL [facility] Neutrophils 57 % [facility] Lymphocyte pct 33.3 % [facility] Monocytes 7.5 % [facility] Eosinophils 1.2 % [facility] Basophils 1.0 % [facility] Blood specimen (specimen) 08/01/2018 12:00 PM CDT 08/01/2018 12:01 PM CDT Narrative Resulting Agency Comment Performing Organization Information: ?Site ID: ?Name: [facility] ?Address: [facility] [place] [address] ?Director: Bobby Mcarthur us Miriam VALLE LAB BLOOD ORDERAB LES Final Result [facility] [place] documented in this encounter Visit Diagnoses Diagnosis Rheumatoid arthritis of multiple sites without rheumatoid factor (CMS/HCC) (HCC)- Primary Encounter for long-term (current) use of medications Encounter for long-term (current) use of other medications Hypermobile joints Other joint derangement, not elsewhere classified, unspecified site Meredith-Danlos disease Meredith-Danlos syndrome documented in this encounter Administered Medications Inactive Administered Medications - up to 3 most recent administrations Medication Order MAR Action Action Date Dose Rate Site triamcinolone (KENALOG) 40 mg/mL injection 100 mg 100 mg, intramuscular, Once, On Sat08/01/18 at 1215, For 1 doseIndications:Rheumatoi d arthritis of multiple sites without rheumatoid factor (CMS/HCC) (HCC) Given 08/01/2018 12:22 PM CDT 100 mg Other (Comment) documented in this encounter Care Teams Air Quality Chemist Relationship Specialty Start Date End Date Isaiah Quiros MD [address] [place] [address] PCP - General Internal Medicine 04/01/17 06/02/20 Isaiah Quiros MD [address] [place] [address] Internal Medicine 02/18/17 03/19/21 Cash Heath III, MD [address] [facility] [address] [place] [address] Rheumatology 04/12/17 documented as of this encounter
--- OUTSIDE RECORDS SUMMARY | 2024-04-29 19:25 | XMS_ITS | Encounter Summary ---
Author Organization [facility] Facility Care Team Providers Care Seat Joiner Chainstitch Name Role Phone Unavailable Primary Care Provider Unavailabl e Encounter Details Date Type Department Care Team (Latest Contact Info) Description 03/28/2015 12:58 AM FISHING VESSEL CAPTAIN - 03/30/2015 12:57 PM FISHING VESSEL CAPTAIN Hospital Encounter [facility] Diverticulitis of intestine without perforation or abscess without bleeding; Acidosis; Abnormal results of thyroid function studies; Migraine without status migrainosus, not intractable; Thyrotoxicosis without thyroid storm; Anemia Social History Tobacco Use Types Packs/Day Years Used Date Smoking Tobacco: Never Assessed Comments Unknown Sex and Gender Information Value Date Recorded Sex Assigned at Not on file Legal Sex Female 9:24 PM FISHING VESSEL CAPTAIN Gender Identity Female 08/14/2022 11:32 AM CDT Sexual Orientation Straight 02/13/2023 7: 01 AM CDT documented as of this encounter Last Filed Vital Signs Vital Sign Reading Time Taken Comments Blood Pressure 123/78 03/30/2015 7:27 AM FISHING VESSEL CAPTAIN Pulse 72 03/30/2015 7:27 AM FISHING VESSEL CAPTAIN Temperature - - Respiratory Rate - - Oxygen Saturation 98% 03/30/2015 7:27 AM FISHING VESSEL CAPTAIN Inhaled Oxygen Concentration - - Weight 80.3 kg (176 lb 15.8 oz) 03/28/2015 1:27 AM FISHING VESSEL CAPTAIN Height 167.6 cm (5' 6 ) 03/28/2015 1:27 AM FISHING VESSEL CAPTAIN Body Mass Index 28.57 03/28/2015 1:27 AM FISHING VESSEL CAPTAIN documented in this encounter H&P Notes * ProviderJohn MD - 03/28/2015 12:00 AM CST Patient: JULIAN GALO Reg No: [id number] [facility] #: [id number] Admit Dt.: 03/28/2015 : 1975 Room No: 03757-88 Attending: Earle Oh M.D. Dictating: Earle Oh M.D. ADMISSION HISTORY AND PHYSICAL Date of Service: 03/28/2015 Admission Diagnosis: Colitis. Chief Complaint: Abdominal pain and diarrhea. History of Present Illness: The patient is a pleasant 39-year-old female who has a past medical history of nephrolithiasis, migraine headaches, osteoarthritis, thyroid disorder, who is presenting with over 1 month of GI complications and outside hospital diagnosis of diverticulitis. The patient reports that she was in her usual state of health until mid January 2015, she had episode of severe migraine, which is unusual for her, she notes her last migraine before that had been at least 1 or 2 years prior, she then started of abdominal pain, diarrhea with up to 15 bowel movements a day, they were small volume, loose, occasionally watery, were related to oral intake and improved with limiting her oral intake, no significant tenesmus, but there was significant urgency. After attempting [id number] outpatient management of her diarrhea, persistence of this, developing abdominal pain, she presented to an outside hospital emergency department. She was diagnosed with diverticulitis based off of imaging. She was given a course of ciprofloxacin. After a few days of taking this, she was still not having relief of her pain. She was seen by her primary care physician, Dr Dash, who prescribed Augmentin on February 28, 2015. After 3 days of taking this, she was still having significant abdominal pain and diarrhea, was admitted to outside hospital for 1 week hospital stay. She notes that there was imaging, colonoscopy performed with biopsies. At discharge, she was told that she had colitis, was given a 7-day course of Levaquin. She believes that she had C difficile toxin assay testing that was negative, is unsure of any other significant findings at that time other than being told she had elevated white blood cell counts in her blood. At the very end of her treatment course with Levaquin, she started to have improvement of her abdominal pain, had resolution of her diarrhea. The day after completing her course of Levaquin, she started to have abdominal pain return. The pain is periumbilical, left lower quadrant, right lower quadrant, seems to be colicky, is exacerbated by oral intake. She was initially having formed stools until 1 day prior to admission. Over the last day, she has had significant amount of diarrhea, up to 10 bowel movements. She notes that there has been slight change in the consistency, it is not as watery, seems to be a thicker mucus, has been blood tinged. She does note associated nausea, chills, migraine headaches over the last 1 month, severe fatigue over the last month, worsening knee pain and stiffness over the last month, blurry vision. On pertinent review of systems and review of her history she denies eating any undercooked food, did have travel a few months ago to [place], [place]. [place] the city with city water, has a cat at home. She notes that she has had some recent illnesses this year with episodes of urinary tract infections complicated from nephrolithiasis, chronic arthritis pain, and being told that she has sacroiliac joint arthritis, recently has been getting steroid injections, was recently started on long-acting narcotics in December 2014. In the emergency department, the patient was afebrile, normal vital signs. She had blood work that was notable for mild leukocytosis 12.5, otherwise laboratory work was notable for mildly elevated lipase at 186. Urine testing was concerning for microscopic hematuria. No abdominal imaging has been obtained yet, although the emergency room has ordered a CT scan. The patient has been given Unasyn and Flagyl. She was given pain control with IV morphine, this was complicated by episode of hives. The patient is being admitted for further evaluation and treatment. I have summarized Clinical Desktop and emergency room record history in the history of present illness above. Past Medical/Surgical History: 1. Colitis-the patient has been told she had an episode of diverticulitis over this last month as per history of present illness. Workup has been done at [facility] in [place]. 2. Nephrolithiasis. 3. Migraine headaches. 4. Thyroid disorder-patient was told 4 years ago she had abnormal thyroid testing including positive thyroid antibodies, these spontaneously resolved. 5. Arthritis-the patient has had severe pain she says at her hips, lower back, has been diagnosed with hip and sacroiliac arthritis, is being followed by Pain Management. 6. Depression. 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 8. section. Medications: 1. Melatonin 3 mg p.o. at bedtime. 2. Duloxetine 60 mg p.o. daily. 3. Morphine extended release 15 mg p.o. twice a day as needed. 4. Morphine 15 mg p.o. q.4 hours as needed for pain. 5. Imitrex 50 mg p.o. q.24 hours as needed for headache. Allergies: No prior known drug allergies. She had an adverse reaction to morphine in the emergency department with hives. Social History: The patient has a history of smoking, she quit using cigarettes in May 2014, had a previous half pack per day smoking history, is currently using E-cigarettes. She has rare alcohol use. Has a remote history of marijuana use. Family Medical History: Brother with Crohn disease. Review of Systems: As per history of present illness. All other systems are negative. Physical Examination: Vital Signs: Temperature is 35.9, heart rate 77, blood pressure is 112/74, breathing 20 times a minute with 98% O2 saturation room air. General: The patient is alert and oriented x4. She is lying in bed comfortably. No acute distress. HEENT: Pupils are equal, round, reactive to light. Extraocular muscles intact. Sclerae anicteric. Head is normocephalic, atraumatic. Moist mucous membranes. There is no oral ulcers. Neck: Supple. There is no meningismus. Lungs: Clear to auscultation bilaterally. Heart: Regular rate and rhythm. Normal S1, S2. No murmurs, rubs, or gallops appreciated. Abdomen: Soft. It is diffusely tender to palpation, mostly in the left lower quadrant. There is no rebound, no guarding. Bowel sounds are present. There is no costovertebral angle tenderness. Extremities: No clubbing, cyanosis, or edema. Skin: No rashes. Neurologic: Nonfocal. Laboratory and X-ray Data: Chest x-ray on my personal review, shows clear lung hilario. Urinalysis showed 9 red blood cells, 2 white blood cells. Urine test was negative. Lipase 186, sodium 139, potassium 3.7, chloride 107, CO2 of 19, BUN of 15, creatinine 0.71, glucose 86. WBC 12.5, hemoglobin 14.5, platelets 374,000. Assessment and Plan: This is a 39-year-old female with a recent diagnosis of diverticulitis at outside hospital, has had recurrent abdominal pain and diarrhea after discontinuing antibiotics, concerning for complicated diverticulitis versus antibiotic-associated colitis. 1. Colitis: History is concerning for slightly atypical, but possible nearly 1 month of diverticulitis versus possibly inflammatory bowel disease. There is a complicated course of antibiotics over the last 1 month as per history of present illness. The patient reportedly has had CT imaging as well as colonoscopy at [facility] within the last month including biopsies. For now, we will follow up on imaging obtained in the emergency department. If they do not obtain imaging, I am going to obtain CT scan of the abdomen and pelvis to evaluate for abscess or complications of diverticulitis. We will check stool studies for enteric pathogen, ova and parasite screen, C difficile toxin assay. We will start the patient on ceftriaxone, Flagyl, provide IV analgesia as needed, IV fluids, IV antiemetics. 2. Thyroid disorder: The patient with a reported history of possible autoimmune disease with thyroid antibodies positive, with concerns for some gastrointestinal symptoms. We will check TSH, T4. 3. Fluids, electrolytes, nutrition. We will put the patient on a clear liquid diet, normal saline, IV fluids. 4. Prophylaxis. With Lovenox. 5. Code status. FULL CODE. Electronically Authenticated by: Earle Oh MD On 04/01/2015 12:35 AM FISHING VESSEL CAPTAIN Electronically Authenticated by: Earle Oh MD On 05/07/2015 01:25 AM FISHING VESSEL CAPTAIN Earle Oh M.D. MDM:[email or web address] Editing MT: [email or web address] TD: 03/28/2015 02:29 AM cc: Earle Oh M.D. documented in this encounter Plan of Treatment Not on file documented as of this encounter Procedures Procedure Name Priority Date/Time Associated Diagnosis Comments PLASMA BASIC METABOLIC PANEL Routine 03/30/2015 3:44 AM FISHING VESSEL CAPTAIN BLOOD CELL COUNT (CBC) Routine 5 3:44 AM FISHING VESSEL CAPTAIN DISCHARGE LABORATORY CUMULATIVE REPORT 03/30/2015 BLOOD GLUCOSE, POC Routine 03/29/2015 4: 17 PM FISHING VESSEL CAPTAIN PLASMA BASIC METABOLIC PANEL Routine 03/29/2015 3:31 AM FISHING VESSEL CAPTAIN BLOOD CELL COUNT (CBC) Routine 5 3:31 AM FISHING VESSEL CAPTAIN US ABDOMEN LIMITED Routine 03/28/2015 1: 30 PM FISHING VESSEL CAPTAIN ENTERIC PATHOGEN CULTURE, CDR Routine 03/28/2015 11:40 [address] FISHING VESSEL [address] CT ABDOMEN PELVIS W CONTRAST Routine 03/28/2015 10:19 AM FISHING VESSEL CAPTAIN SERUM THYROXINE (T4), FREE Routine 03/28 3:43 AM FISHING VESSEL CAPTAIN SERUM THYROID-STIMULATING HORMONE (TSH) Routine 03/28/2015 3:43 AM FISHING VESSEL CAPTAIN SERUM MAGNESIUM Routine 03/28/2015 3:43 AM FISHING VESSEL CAPTAIN SERUM C-REACTIVE PROTEIN Routine 015 3:43 AM FISHING VESSEL CAPTAIN PLASMA PROTHROMBIN TIME (PT) Routine 03/28/2015 3:43 AM FISHING VESSEL CAPTAIN PLASMA PHOSPHORUS Routine 03/28/2015 3:4 3 AM FISHING VESSEL CAPTAIN PLASMA PARTIAL THROMBOPLASTIN TIME (PTT) Routine 03/28/2015 3:43 AM FISHING VESSEL CAPTAIN PLASMA HEPATIC FUNCTION PANEL Routine 03/28/2015 3:43 AM FISHING VESSEL CAPTAIN PLASMA BASIC METABOLIC PANEL Routine 03/28/2015 3:43 AM FISHING VESSEL CAPTAIN BLOOD ERYTHROCYTE SEDIMENTATION RATE (ESR) Routine 03/28/2015 3:43 AM FISHING VESSEL CAPTAIN BLOOD CELL COUNT (CBC) Routine 5 3:43 AM FISHING VESSEL CAPTAIN CLOSTRIDIUM DIFFICILE TOXIN, CDR Routine 03/28/2015 12:32 AM FISHING VESSEL CAPTAIN VRE SURVEILLANCE SCREEN, CDR Routine 03/28/2015 12:27 AM FISHING VESSEL CAPTAIN ELECTROCARDIOGRAPHY (ECG) 03/28/2015 ALL MICROBIOLOGY REPORT SECTION Routine 03/28/2015 12:00 AM FISHING VESSEL CAPTAIN ALL MICROBIOLOGY REPORT SECTION Routine 03/28/2015 12:00 AM FISHING VESSEL CAPTAIN ALL MICROBIOLOGY REPORT SECTION Routine 03/28/2015 12:00 AM FISHING VESSEL CAPTAIN XR CHEST 1 VIEW Routine 03/27/2015 11:25 PM FISHING VESSEL CAPTAIN URINE CHORIONIC GONADOTROPIN (HCG) Routine 03/27/2015 10:32 PM FISHING VESSEL CAPTAIN URINE MICROSCOPY Routine 03/27/2015 6:31 PM FISHING VESSEL CAPTAIN SERUM LIPASE Routine 03/27/2015 6:31 PM FISHING VESSEL CAPTAIN PLASMA HEPATIC FUNCTION PANEL Routine 03/27/2015 6:31 PM FISHING VESSEL CAPTAIN PLASMA BASIC METABOLIC PANEL Routine 03/27/2015 6:31 PM FISHING VESSEL CAPTAIN URINALYSIS Routine 03/27/2015 6:31 PM FISHING VESSEL CAPTAIN BLOOD CELL COUNT (CBC) Routine 5 6:31 PM FISHING VESSEL CAPTAIN documented in this encounter Results * Plasma basic metabolic panel (03/30/2015 3:44 AM FISHING VESSEL CAPTAIN) Sodium 140 135 - 145 mmol/L HISTORICAL RESULTS K, pl 3.6 3.3 - 4.9 mmol/L HISTORICAL RESULTS Chloride 107 97 - 110 mmol/L HISTORICAL RESULTS CO2 23 22 - 32 mmol/L HISTORICAL RESULTS A. gap 10 0 - 16 mmol/L HISTORICAL RESULTS Glucose 78 70 - 199 mg/dl HISTORICAL RESULTS BUN 8 8 - 25 mg/dl HISTORICAL RESULTS Creatinine 0.75 0.60 - 1.10 mg/dl HISTORICAL RESULTS Calcium 8.9 8.6 - 10.3 mg/dl HISTORICAL RESULTS Plasma 03/30/2015 3:44 AM FISHING VESSEL CAPTAIN Manjula Youssef MD LAB BLOOD ORDERABLES Final Result Performing Organization Address [facility] Co de Phone Number HISTORICAL RESULTS * (ABNORMAL) Blood cell count (CBC) (03/30/2015 3:44 AM FISHING VESSEL CAPTAIN) WBC 4.7 3.8 - 9.8 K/cumm HISTORICAL RESULTS RBC 4.60 3.90 - 5.00 M/cumm HISTORICAL RESULTS Hgb 13.1 12.1 - 15.1 g/dl HISTORICAL RESULTS Hct 40.7 36.1 - 44.3 % HISTORICAL RESULTS MCV 88.5 80.0 - 97.6 fl HISTORICAL RESULTS MCH 28.4 26.7 - 33.7 pg HISTORICAL RESULTS MCHC 32.1(L) 32.7 - 35.5 g/dl HISTORICAL RESULTS Rdw 14.1 11.8 - 14.6 % HISTORICAL RESULTS Platelets 291 140 - 440 K/cumm HISTORICAL RESULTS MPV 7.3 6.8 - 10.4 fl HISTORICAL RESULTS Neutrophils 58.2 38.7 - 74.5 % HISTORICAL RESULTS Lymphocytes 28.6 20.0 - 54.3 % HISTORICAL RESULTS Monos 7.8 4.3 - 13.5 % HISTORICAL RESULTS Eosinophils 3.7 0.0 - 6.0 % HISTORICAL RESULTS Basophils 1.7 0.0 - 3.0 % HISTORICAL RESULTS Neutrophils, abs 2.7 1.8 - 6.6 K/cumm HISTORICAL RESULTS Lymphocytes, abs 1.3 1.2 - 3.3 K/cumm HISTORICAL RESULTS Monocytes, absolute 0.4 0.2 - 1.2 K/cumm HISTORICAL RESULTS Eosinophils, abs 0.2 0.0 - 0.5 K/cumm HISTORICAL RESULTS Basophils, abs 0.1 0.0 - 0.2 K/cumm HISTORICAL RESULTS Blood specimen (specimen) 03/30/2015 3:44 AM FISHING VESSEL CAPTAIN Manjula Youssef MD LAB BLOOD ORDERABLES Final Result HISTORICAL RESULTS * DISCHARGE LABORATORY CUMULATIVE REPORT (03/30/2015) Narrative 03/30/2015 Ordered by an unspecified provider. Historical Provider LAB BLOOD ORDERABLES Abigail l Result * Blood glucose, POC (03/29/2015 4:17 PM FISHING VESSEL CAPTAIN) Glucose, POC, bld 181 70 - 199 mg/dl HISTORICAL RESULTS Blood specimen (specimen) 03/29/2015 4:17 PM FISHING VESSEL CAPTAIN Earle Oh MD LAB BLOOD ORDERABLES Fin al Result Performing Organization Address [facility] de Phone Number HISTORICAL RESULTS * (ABNORMAL) Plasma basic metabolic panel (03/29/2015 3:31 AM FISHING VESSEL CAPTAIN) Sodium 140 135 - 145 mmol/L HISTORICAL RESULTS K, pl 3.3 3.3 - 4.9 mmol/L HISTORICAL RESULTS Chloride 109 97 - 110 mmol/L HISTORICAL RESULTS CO2 21(L) 22 - 32 mmol/L HISTORICAL RESULTS A. gap 10 0 - 16 mmol/L HISTORICAL RESULTS Glucose 88 70 - 199 mg/dl HISTORICAL RESULTS BUN 7(L) 8 - 25 mg/dl HISTORICAL RESULTS Creatinine 0.67 0.60 - 1.10 mg/dl HISTORICAL RESULTS Calcium 8.5(L) 8.6 - 10.3 mg/dl HISTORICAL RESULTS Plasma 03/29/2015 3:31 AM FISHING VESSEL CAPTAIN Manjula Youssef MD LAB BLOOD ORDERABLES Final Result Performing Organization Address [facility] Co de Phone Number HISTORICAL RESULTS * (ABNORMAL) Blood cell count (CBC) (03/29/2015 3:31 AM FISHING VESSEL CAPTAIN) WBC 5.4 3.8 - 9.8 K/cumm HISTORICAL RESULTS RBC 4.45 3.90 - 5.00 M/cumm HISTORICAL RESULTS Hgb 12.5 12.1 - 15.1 g/dl HISTORICAL RESULTS Hct 39.5 36.1 - 44.3 % HISTORICAL RESULTS MCV 88.8 80.0 - 97.6 fl HISTORICAL RESULTS MCH 28.0 26.7 - 33.7 pg HISTORICAL RESULTS MCHC 31.5(L) 32.7 - 35.5 g/dl HISTORICAL RESULTS Rdw 13.9 11.8 - 14.6 % HISTORICAL RESULTS Platelets 291 140 - 440 K/cumm HISTORICAL RESULTS MPV 7.8 6.8 - 10.4 fl HISTORICAL RESULTS Neutrophils 60.9 38.7 - 74.5 % HISTORICAL RESULTS Lymphocytes 26.7 20.0 - 54.3 % HISTORICAL RESULTS Monos 6.6 4.3 - 13.5 % HISTORICAL RESULTS Eosinophils 4.5 0.0 - 6.0 % HISTORICAL RESULTS Basophils 1.3 0.0 - 3.0 % HISTORICAL RESULTS Neutrophils, abs 3.3 1.8 - 6.6 K/cumm HISTORICAL RESULTS Lymphocytes, abs 1.4 1.2 - 3.3 K/cumm HISTORICAL RESULTS Monocytes, absolute 0.4 0.2 - 1.2 K/cumm HISTORICAL RESULTS Eosinophils, abs 0.2 0.0 - 0.5 K/cumm HISTORICAL RESULTS Basophils, abs 0.1 0.0 - 0.2 K/cumm HISTORICAL RESULTS Blood specimen (specimen) 03/29/2015 3:31 AM FISHING VESSEL CAPTAIN us Manjula Youssef MD LAB BLOOD ORDERABLES Final Result HISTORICAL RESULTS * US Abdomen Limited (03/28/2015 1:30 PM FISHING VESSEL CAPTAIN) Anatomical Region Laterality Modality Abdomen N/A Ultrasound 03/28/2015 1:30 PM FISHING VESSEL CAPTAIN Narrative 03/28/2015 3:41 PM FISHING VESSEL CAPTAIN SHANAE HORNE M.D. STEFANI RODRIGUEZ M.D. FINAL REPORT The radiology attending physician has personally reviewed this study, and has reviewed and/or edited this written report and agrees with it. ACC# ??Date Time ??Exam [id number] Mar 28, 2015 13:30:00 [id number] [facility] ACC# ??Date Time ??Exam [id number] Mar 28, 2015 13:30:00 [id number] [facility] EXAMINATION: ?? LIMITED ABDOMINAL SONOGRAM DATE: ??03/28/2015 HISTORY: ??39-year-old female with abdominal pain and mildly elevated lipase. FINDINGS: ??The gallbladder is normal. There are no stones or wall abnormalities. ??The liver is normal in size, echotexture, and echogenicity. There are 2 small hyperechoic lesions of the right hemiliver, one measuring 1.1 x 0.6 x 0.9 cm and the other measuring 0.8 x 0.6 x 0.5 cm, likely representing hemangiomas. ??There is no surface nodularity. ??The common duct is normal and measures 2 mm, 4 mm, and 2 mm in the proximal, mid and distal aspects respectively. Two shadowing, hyperechoic foci are present in the right kidney, likely representing renal stones. There is no hydronephrosis in the visualized portion of the right kidney. The visualized portions of the head and body of the pancreas are normal.. The proximal IVC is normal.. ?? IMPRESSION: ? 1. Normal gallbladder. No cholelithiasis. No common duct dilatation. 2. Multiple small hyperechoic lesions in the right hemiliver, likely hemangiomas. 3. Two right renal calculi. No hydronephrosis. ?? Requested By: MANJULA YOUSSEF M.D. Dictated By: ?? STEFANI RODRIGUEZ M.D. ??on Mar ??2014 ??1:45P This document has been electronically signed by: SHANAE HORNE M.D. on Mar ??2014 ??3:41P Procedure Note Provider, MD John - 08/20/2016 SHANAE HORNE M.D. STEFANI RODRIGUEZ M.D. FINAL REPORT The radiology attending physician has personally reviewed this study, and has reviewed and/or edited this written report and agrees with it. ACC# Date Time Exam [id number] Mar 28, 2015 13:30:00 [id number] [facility] ACC# Date Time Exam [id number] Mar 28, 2015 13:30:00 [id number] [facility] EXAMINATION: LIMITED ABDOMINAL SONOGRAM DATE: 03/28/2015 HISTORY: 39-year-old female with abdominal pain and mildly elevated lipase. FINDINGS: The gallbladder is normal. There are no stones or wall abnormalities. The liver is normal in size, echotexture, and echogenicity. There are 2 small hyperechoic lesions of the right hemiliver, one measuring 1.1 x 0.6 x 0.9 cm and the other measuring 0.8 x 0.6 x 0.5 cm, likely representing hemangiomas. There is no surface nodularity. The common duct is normal and measures 2 mm, 4 mm, and 2 mm in the proximal, mid and distal aspects respectively. Two shadowing, hyperechoic foci are present in the right kidney, likely representing renal stones. There is no hydronephrosis in the visualized portion of the right kidney. The visualized portions of the head and body of the pancreas are normal.. The proximal IVC is normal.. IMPRESSION: 1. Normal gallbladder. No cholelithiasis. No common duct dilatation. 2. Multiple small hyperechoic lesions in the right hemiliver, likely hemangiomas. 3. Two right renal calculi. No hydronephrosis. Requested By: MANJULA YOUSSEF M.D. Dictated By: STEFANI RODRIGUEZ M.D. on Mar 28 2015 1:45P This document has been electronically signed by: SHANAE HORNE M.D. on Mar 28 2015 3:41P Historical Provider MD [facility] US PROCEDURES Final R esult * Enteric pathogen culture (03/28/2015 11:40 AM FISHING VESSEL CAPTAIN) Stool (Unknown) 03/28/2015 1 1:40 AM FISHING VESSEL CAPTAIN 03/28/2015 12:36 PM FISHING VESSEL CAPTAIN Impressions HISTORICAL RESULTS - 03/31/2015 1:37 PM FISHING VESSEL CAPTAIN Organisms routinely cultured for include Salmonella, Shigella, Edwardsiella, Aeromonas, Pleisiomonas, Campylobacter, and E. coli 0157. ??Cultured only upon special request: ??Vibrio species and Yersinia species. Current Interpretive data was last revised on 06. Narrative HISTORICAL RESULTS - 03/31/2015 1:37 PM FISHING VESSEL CAPTAIN No growth of enteric bacterial pathogens Historical Provider LAB MICROBIOLOGY - GENERA L ORDERABLES Final Result HISTORICAL RESULTS * CT Abdomen Pelvis W Contrast (03/28/2015 10:19 AM FISHING VESSEL CAPTAIN) Anatomical Region Laterality Modality Body N/A Computed Tomogra phy 03/28/2015 10:1 9 AM FISHING VESSEL CAPTAIN Narrative 03/28/2015 12:31 PM FISHING VESSEL CAPTAIN KALIA MEZA M.D. TAVIA CHÁVEZ M.D. FINAL REPORT The radiology attending physician has personally reviewed this study, and has reviewed and/or edited this written report and agrees with it. ACC# ??Date Time ??Exam [id number] Mar 28, 2015 10:19:[id number] Abd & Pelvis with cont EXAMINATION: ?? CT OF THE ABDOMEN AND PELVIS WITH INTRAVENOUS CONTRAST HISTORY: ??39-year-old woman with one month history of abdominal pain and diarrhea despite antibiotic treatment. TECHNIQUE: Transaxial computed tomographic images of the abdomen and pelvis were obtained with intravenous contrast according to standard protocol using 94 mL of Optiray-350 without immediate complications.. FINDINGS: ??Comparison is made to previous CT from 09/04/2014. Limited images of the lung bases reveal minimal dependent atelectasis. Few bubbles of gas are seen within the right ventricle, likely from intravenous cannulation. A 5 mm hypoattenuating segment 6 liver lesion on image 32 is indeterminate. Few other hypoattenuating lesions are also seen (image 25). At least 3 hyperenhancing liver lesions are also seen (image 50, 45, 32) and could represent focal nodular hyperplasia or flash-filling hemangiomas. Multiple calcified granulomas are present in the spleen. The pancreas, are adrenals are normal. There is a multiple tiny nonobstructive bilateral renal calculi. Also seen is focal cortical scarring in the right kidney interpolar region. There is pelvic relaxation. The uterus is normal. There are no adnexal masses but a 3 cm cyst is seen in the left ovary. The bladder is normal. Colonic diverticulosis is present in the one stranding in the region of the sigmoid colon (coronal image 25) The appendix is normal visualized. Small bowel loops are normal in course and caliber without signs of obstruction. Small hiatal hernia is noted. Tiny subcentimeter lymph nodes in the retroperitoneum are likely reactive. There is no ascites or pneumoperitoneum. There is an L5 transitional vertebra on the left. IMPRESSION: ?? Subtle stranding in the region of the sigmoid colon is new from the previous examination and could represent early or resolving uncomplicated diverticulitis. Requested By: EARLE OH M.D. Dictated By: ?? TAVIA CHÁVEZ M.D. ??on Mar 11:41A This document has been electronically signed by: KALIA MEZA M.D. on Mar 12:31P [id number] Procedure Note Provider, MD John - 08/20/2016 KALIA MEZA M.D. TAVIA CHÁVEZ M.D. FINAL REPORT The radiology attending physician has personally reviewed this study, and has reviewed and/or edited this written report and agrees with it. ACC# Date Time Exam [id number] Mar 28, 2015 10:19:[id number] Abd & Pelvis with cont EXAMINATION: CT OF THE ABDOMEN AND PELVIS WITH INTRAVENOUS CONTRAST HISTORY: 39-year-old woman with one month history of abdominal pain and diarrhea despite antibiotic treatment. TECHNIQUE: Transaxial computed tomographic images of the abdomen and pelvis were obtained with intravenous contrast according to standard protocol using 94 mL of Optiray-350 without immediate complications.. FINDINGS: Comparison is made to previous CT from 09/04/2014. Limited images of the lung bases reveal minimal dependent atelectasis. Few bubbles of gas are seen within the right ventricle, likely from intravenous cannulation. A 5 mm hypoattenuating segment 6 liver lesion on image 32 is indeterminate. Few other hypoattenuating lesions are also seen (image 25). At least 3 hyperenhancing liver lesions are also seen (image 50, 45, 32) and could represent focal nodular hyperplasia or flash-filling hemangiomas. Multiple calcified granulomas are present in the spleen. The pancreas, are adrenals are normal. There is a multiple tiny nonobstructive bilateral renal calculi. Also seen is focal cortical scarring in the right kidney interpolar region. There is pelvic relaxation. The uterus is normal. There are no adnexal masses but a 3 cm cyst is seen in the left ovary. The bladder is normal. Colonic diverticulosis is present in the one stranding in the region of the sigmoid colon (coronal image 25) The appendix is normal visualized. Small bowel loops are normal in course and caliber without signs of obstruction. Small hiatal hernia is noted. Tiny subcentimeter lymph nodes in the retroperitoneum are likely reactive. There is no ascites or pneumoperitoneum. There is an L5 transitional vertebra on the left. IMPRESSION: Subtle stranding in the region of the sigmoid colon is new from the previous examination and could represent early or resolving uncomplicated diverticulitis. Requested By: EARLE OH M.D. Dictated By: TAVIA CHÁVEZ M.D. on Mar 28 2015 11:41A This document has been electronically signed by: KALIA MEZA M.D. on Mar 28 2015 12:31P [id number] Historical Provider IMG CT PROCEDURES Final R esult * (ABNORMAL) Serum thyroid-stimulating hormone (TSH) (03/28/2015 3:43 AM FISHING VESSEL CAPTAIN) TSH 0.05(L) 0.35 - 5.50 mcIUnits/ ml HISTORICAL RESULTS Comment: Interpretive Data Hyperthyroid: ??<0.1 mcIUnit/mL Hypothyroid: ??>12.0 mcIUnit/mL Current interpretive data was last revised on 00. Serum 03/28/2015 3:43 AM FISHING VESSEL CAPTAIN Earle Oh MD LAB BLOOD ORDERABLES Fin al Result Performing Organization Address City/[facility] de Phone Number HISTORICAL RESULTS * (ABNORMAL) Plasma hepatic function panel (03/28/2015 3:43 AM FISHING VESSEL CAPTAIN) Protein, pl 5.9(L) 6.5 - 8.5 g/dl HISTORICAL RESULTS Alb 3.4(L) 3.6 - 5.0 g/dl HISTORICAL RESULTS Bilirubin 0.3 0.3 - 1.1 mg/dl HISTORICAL RESULTS Bilirubin, direct 0.1 0.0 - 0.3 mg/dl HISTORICAL RESULTS Alk phos 54 38 - 126 Units/L HISTORICAL RESULTS AST 14 11 - 47 Units/L HISTORICAL RESULTS ALT 20 7 - 53 Units/L HISTORICAL RESULTS Plasma 03/28/2015 3:43 AM FISHING VESSEL CAPTAIN Earle Oh MD LAB BLOOD ORDERABLES Fin al Result HISTORICAL RESULTS * Serum C-reactive protein (03/28/2015 3:43 AM FISHING VESSEL CAPTAIN) C-RP 7.2 0.0 - 9.9 mg/L HISTORICAL RESULTS Serum 03/28/2015 3:43 AM FISHING VESSEL CAPTAIN Earle Oh MD LAB BLOOD ORDERABLES Fin al Result Performing Organization Address [facility] de Phone Number HISTORICAL RESULTS * Plasma partial thromboplastin time (PTT) (03/28/2015 3:43 AM FISHING VESSEL CAPTAIN) Pathologist [facility] APTT 30.7 25.0 - 37.0 seconds HISTORICAL RESULTS Comment: Interpretive Data Therapeutic heparin range:60.0 - 94.0 sec based on correlation with therapeutic heparin activity range of 0.3 -0.7 Units/mL. Current interpretive data was last revised on 2011. Plasma 03/28/2015 3:43 AM FISHING VESSEL CAPTAIN Earle Oh MD LAB BLOOD ORDERABLES Fin al Result Performing Organization Address [facility] de Phone Number HISTORICAL RESULTS * (ABNORMAL) Plasma basic metabolic panel (03/28/2015 3:43 AM FISHING VESSEL CAPTAIN) Pathologist [facility] Sodium 142 135 - 145 mmol/L HISTORICAL RESULTS K, pl 3.6 3.3 - 4.9 mmol/L HISTORICAL RESULTS Chloride 113(H) 97 - 110 mmol/L HISTORICAL RESULTS CO2 21(L) 22 - 32 mmol/L HISTORICAL RESULTS A. gap 8 0 - 16 mmol/L HISTORICAL RESULTS Glucose 92 70 - 199 mg/dl HISTORICAL RESULTS BUN 14 8 - 25 mg/dl HISTORICAL RESULTS Creatinine 0.71 0.60 - 1.10 mg/dl HISTORICAL RESULTS Calcium 8.4(L) 8.6 - 10.3 mg/dl HISTORICAL RESULTS Plasma 03/28/2015 3:43 AM FISHING VESSEL CAPTAIN Earle Oh MD LAB BLOOD ORDERABLES Fin al Result Performing Organization Address [facility] de Phone Number HISTORICAL RESULTS * Plasma phosphorus (03/28/2015 3:43 AM FISHING VESSEL CAPTAIN) Phosphorus, pl 3.1 2.3 - 4.3 mg/dl HISTORICAL RESULTS Plasma 03/28/2015 3:43 AM FISHING VESSEL CAPTAIN Earle Oh MD LAB BLOOD ORDERABLES Fin al Result Performing Organization Address [facility] de Phone Number HISTORICAL RESULTS * Plasma prothrombin time (PT) (03/28/2015 3:43 AM FISHING VESSEL CAPTAIN) Prothrombin time (PT) 11.7 9.2 - 13.0 seconds HISTORICAL RESULTS INR 1.08 0.90 - 1.20 HISTORIC AL RESULTS Comment: Interpretive Data Inpatient therapeutic ranges* Atrial fibrillation ?2.0-3.0 INR Venous thrombo-embolism ?2.0-3.0 INR Bioprosthetic heart valve ?* Mechanical heart valve, bileaflet or tilting disk,aortic position ? 2.0-3.0 INR All other,or bileaflet or tilting disk, in mitral position ? 2.5-3.5 INR *See the pharmacy resource directory (PHRED) for an updated copy of the Tool Book at [email or web address] Current Interpretive Data was last revised 2011. Plasma 03/28/2015 3:43 AM FISHING VESSEL CAPTAIN Earle Oh MD LAB BLOOD ORDERABLES Fin al Result Performing Organization Address [facility] de Phone Number HISTORICAL RESULTS * Serum magnesium (03/28/2015 3:43 AM FISHING VESSEL CAPTAIN) Magnesium 1.8 1.4 - 2.5 mg/dl HISTORICAL RESULTS Serum 03/28/2015 3:43 AM FISHING VESSEL CAPTAIN Earle Oh MD LAB BLOOD ORDERABLES Fin al Result Performing Organization Address City/State/[facility] Co de Phone Number HISTORICAL RESULTS * Serum thyroxine (T4), free (03/28/2015 3:43 AM FISHING VESSEL CAPTAIN) Free T4 0.99 0.90 - 1.80 ng/dl HISTORICAL RESULTS Serum 03/28/2015 3:43 AM FISHING VESSEL CAPTAIN Earle Oh MD LAB BLOOD ORDERABLES Fin al Result Performing Organization Address [facility] de Phone Number HISTORICAL RESULTS * (ABNORMAL) Blood cell count (CBC) (03/28/2015 3:43 AM FISHING VESSEL CAPTAIN) WBC 7.2 3.8 - 9.8 K/cumm HISTORICAL RESULTS RBC 4.16 3.90 - 5.00 M/cumm HISTORICAL RESULTS Hgb 11.9(L) 12.1 - 15.1 g/dl HISTORICAL RESULTS Hct 37.0 36.1 - 44.3 % HISTORICAL RESULTS MCV 89.2 80.0 - 97.6 fl HISTORICAL RESULTS MCH 28.7 26.7 - 33.7 pg HISTORICAL RESULTS MCHC 32.1(L) 32.7 - 35.5 g/dl HISTORICAL RESULTS Rdw 14.5 11.8 - 14.6 % HISTORICAL RESULTS Platelets 284 140 - 440 K/cumm HISTORICAL RESULTS MPV 7.6 6.8 - 10.4 fl HISTORICAL RESULTS Neutrophils 57.2 38.7 - 74.5 % HISTORICAL RESULTS Lymphocytes 34.0 20.0 - 54.3 % HISTORICAL RESULTS Monos 5.9 4.3 - 13.5 % HISTORICAL RESULTS Eosinophils 1.8 0.0 - 6.0 % HISTORICAL RESULTS Basophils 1.1 0.0 - 3.0 % HISTORICAL RESULTS Neutrophils, abs 4.1 1.8 - 6.6 K/cumm HISTORICAL RESULTS Lymphocytes, abs 2.5 1.2 - 3.3 K/cumm HISTORICAL RESULTS Monocytes, absolute 0.4 0.2 - 1.2 K/cumm HISTORICAL RESULTS Eosinophils, abs 0.1 0.0 - 0.5 K/cumm HISTORICAL RESULTS Basophils, abs 0.1 0.0 - 0.2 K/cumm HISTORICAL RESULTS Blood specimen (specimen) 03/28/2015 3:43 AM FISHING VESSEL CAPTAIN Earle Oh MD LAB BLOOD ORDERABLES Fin al Result Performing Organization Address [facility] Phone Number HISTORICAL RESULTS * Blood erythrocyte sedimentation rate (ESR) (03/28/2015 3:43 AM FISHING VESSEL CAPTAIN) Pathologist [facility] Erythrocyte sedimentation rate 8.0 0.0 - 25.0 mm/hr HISTORICAL RESULTS Blood specimen (specimen) 03/28/2015 3:43 AM FISHING VESSEL CAPTAIN Earle Oh MD LAB BLOOD ORDERABLES Fin al Result Performing Organization Address [facility] Phone Number HISTORICAL RESULTS * Clostridium difficile toxin (03/28/2015 12:32 AM FISHING VESSEL CAPTAIN) Stool (Unknown) 03/28/2015 1 2:32 AM FISHING VESSEL CAPTAIN 03/28/2015 12:42 AM FISHING VESSEL CAPTAIN Narrative HISTORICAL RESULTS - 03/29/2015 6:18 AM FISHING VESSEL CAPTAIN Negative for: Clostridium difficile toxin. Result [facility] Historical Provider LAB MICROBIOLOGY - GENERA L ORDERABLES Final Result Performing Organization Address [facility] Phone Number HISTORICAL RESULTS * Vancomycin-resistant enterococcus (VRE) surveillance screen (03/28/2015 12:27 AM FISHING VESSEL CAPTAIN) Stool (Unknown) 03/28/2015 1 2:27 AM FISHING VESSEL CAPTAIN 03/29/2015 6:04 AM FISHING VESSEL CAPTAIN Impressions HISTORICAL RESULTS - 03/31/2015 10:57 AM FISHING VESSEL CAPTAIN This test is for Infection prevention surveillance; no charge to patient. Current interpretive data was last revised on 2011. Narrative HISTORICAL RESULTS - 03/31/2015 10:57 AM FISHING VESSEL CAPTAIN Negative Historical Provider LAB MICROBIOLOGY - GENERA L ORDERABLES Final Result Performing Organization Address [facility] Phone Number HISTORICAL RESULTS * All Microbiology Report Section (03/28/2015 12:00 AM FISHING VESSEL CAPTAIN) 03/28/2015 Narrative HISTORICAL RESULTS - 03/31/2015 1:49 PM FISHING VESSEL CAPTAIN ? [facility] ?[facility] [facility] [address] ? Patient Name: ??JULIAN GALO ? Med Rec Number: [id number] ? Fin Number: ?[id number] ? Date: ?1975 ? Sex/Age: ? Female 39 years ? Admit Date: ?03/28/2015 ? Discharge Date: 03/30/2015 ? Doctor: ?Medicine , ? Facility: ?[facility] ? Location: ?[id number] ?* Abnormal ??A Alert ??f Footnote ??^ Corrected ??L Low ??H High ?i Interp Data ??@ Ref Lab ? Chart Type:Cumulative ?* * * * MICROBIOLOGY - GASTROINTESTINAL * * * * ?PROCEDURE: VRE Surveillance Culture ? SOURCE: Stool ? COLLECTED: 03/28/15 ??0027 ?BODY SITE: ? STARTED: 03/29/15 ??0604 ? FREE TEXT SOURCE: ? FINAL REPORT ? REPORTED: 03/31/15 1057 ? Negative ?* * * ??Interpretive Results ??* * * ? (1)This test is for Infection prevention surveillance; no charge to ? patient.Current interpretive data was last revised on 2011. ? us Historical Provider MD LAB MICROBIOLOGY - GENERA L ORDERABLES Final Result HISTORICAL RESULTS * All Microbiology Report Section (03/28/2015 12:00 AM FISHING VESSEL CAPTAIN) 03/28/2015 Narrative HISTORICAL RESULTS - 03/31/2015 3:42 PM FISHING VESSEL CAPTAIN ? [facility] ?[facility] ?[place] [address] ? Patient Name: ??JULIAN GALO ? Med Rec Number: [id number] ? Fin Number: ?[id number] ? Date: ?1975 ? Sex/Age: ? Female 39 years ? Admit Date: ?03/28/2015 ? Discharge Date: 03/30/2015 ? Doctor: ?Medicine , ? Facility: ?[facility] ? Location: ?0163 [id number] 01 ?* Abnormal ??A Alert ??f Footnote ??^ Corrected ??L Low ??H High ?i Interp Data ??@ Ref Lab ? Chart Type:Cumulative ?* * * * MICROBIOLOGY - GASTROINTESTINAL * * * * ?PROCEDURE: Enteric Culture ? SOURCE: Stool ? COLLECTED: 03/28/ ??1140 ?BODY SITE: ? STARTED: 03/28/15 ??1238 ? FREE TEXT SOURCE: ? FINAL REPORT ? REPORTED: 03/31/15 133 ? No growth of enteric bacterial pathogens ?* * * ??Interpretive Results ??* * * ? (1)Organisms routinely cultured for include Salmonella, Shigella, ? Edwardsiella, Aeromonas, Pleisiomonas, Campylobacter, and E. ? coli 0157. ??Cultured only upon special request: ??Vibrio species ? and Yersinia species. Current Interpretive data was last revised ? on 03-04-06. ? us Historical Provider MD LAB MICROBIOLOGY - GENERA L ORDERABLES Final Result HISTORICAL RESULTS * All Microbiology Report Section (03/28/2015 12:00 AM FISHING VESSEL CAPTAIN) 03/28/2015 Narrative HISTORICAL RESULTS - 03/30/2015 3:59 PM FISHING VESSEL CAPTAIN ? [facility] ?[facility] ?[place] [address] ? Patient Name: ??JULIAN GALO ? Med Rec Number: [id number] ? Fin Number: ?[id number] ? Date: ?1975 ? Sex/Age: ? Female 39 years ? Admit Date: ?03/28/2015 ? Discharge Date: 03/30/2015 ? Doctor: ?Medicine , ? Facility: ?[facility] ? Location: ?0163 [id number] 01 ?* Abnormal ??A Alert ??f Footnote ??^ Corrected ??L Low ??H High ?i Interp Data ??@ Ref Lab ? Chart Type:Cumulative ?* * * * MICROBIOLOGY - GASTROINTESTINAL * * * * ?PROCEDURE: Clostridium difficile Toxin ? SOURCE: Stool ? COLLECTED: 03/28/ ??0032 ?BODY SITE: ? STARTED: 03/28/15 ??0042 ? FREE TEXT SOURCE: ? FINAL REPORT ? REPORTED: 03/29/15 0618 ? Negative for: Clostridium difficile toxin. Historical Provider LAB MICROBIOLOGY - GENERA L ORDERABLES Final Result HISTORICAL RESULTS * ELECTROCARDIOGRAPHY (ECG) (03/28/2015) Narrative 03/28/2015 Ordered by an unspecified provider. us Historical Provider MD ECG ORDERABLES Final Res ult * XR Chest 1 View (03/27/2015 11:25 PM FISHING VESSEL CAPTAIN) Anatomical Region Laterality Modality Body, Chest N/A Radiographic Smita ging 03/27/2015 11:2 5 PM FISHING VESSEL CAPTAIN Narrative 03/28/2015 9:35 AM FISHING VESSEL CAPTAIN Salvador MARSHALL M.D. FINAL REPORT The radiology attending physician has personally reviewed this study, and has reviewed and/or edited this written report and agrees with it. ACC# ??Date Time ??Exam [id number] Mar 27, 2015 23:25:00 [id number] Chest 1 view Frontal EXAMINATION: ?? Chest 1 view IMPRESSION: ?? Comparison study dated 03/02/2010. The lungs are clear. There is no confluent airspace opacity, pleural effusion or pneumothorax. The cardiomediastinal silhouette is normal. Requested By: LULU POLANCO M.D. Dictated By: ?? LUNA KUNZ M.D. ??on Mar ??2014 11:31P This document has been electronically signed by: VERONIQUE MANNING M.D. on Mar ??2014 ??9:34A [id number] Procedure Note Provider, MD John - 08/20/2016 Salvador MARSHALL M.D. FINAL REPORT The radiology attending physician has personally reviewed this study, and has reviewed and/or edited this written report and agrees with it. ACC# Date Time Exam [id number] Mar 27, 2015 23:25:00 [id number] Chest 1 view Frontal EXAMINATION: Chest 1 view IMPRESSION: Comparison study dated 03/02/2010. The lungs are clear. There is no confluent airspace opacity, pleural effusion or pneumothorax. The cardiomediastinal silhouette is normal. Requested By: LULU POLANCO M.D. Dictated By: LUNA KUNZ M.D. on Mar 27 2015 11:31P This document has been electronically signed by: VERONIQUE MANNING M.D. on Mar 28 2015 9:34A [id number] us Historical Provider IMG XR PROCEDURES Final R esult * Urine chorionic gonadotropin (HCG) (03/27/2015 10:32 PM FISHING VESSEL CAPTAIN) HCG, ur Negative HISTORICAL RESULTS Urine 03/27/2015 10:3 2 PM FISHING VESSEL CAPTAIN us Erlin Simental MD LAB BLOOD ORDERABLES Final Res ult HISTORICAL RESULTS * (ABNORMAL) Urinalysis (03/27/2015 6:31 PM FISHING VESSEL CAPTAIN) Protein, ur 1+(A) Trace HISTORIC AL RESULTS Color, ur Yellow Yellow HISTORICAL RESULTS Glucose, ur Negative Negative HISTORIC AL RESULTS Clarity, ur Cloudy(A) Clear HISTORIC AL RESULTS Ketones, ur Trace(A) Negative HISTORIC AL RESULTS Specific gravity, ur 1.023 1.003 - 1.030 HISTORICAL RESULTS Bilirubin, ur Negative Negative HISTOR ICAL RESULTS pH, ur 6.0 5.0 - 8.0 HISTORICAL RESULTS U Blood Negative Negative HISTORICAL RESULTS Urobilinogen, quant, ur <2.0(H) 0.0 - 1.9 mg/dl HISTORICAL RESULTS Nitrites, ur Negative Negative HISTORI ESTELLE RESULTS Leukocyte esterase, ur Negative Negative HISTORICAL RESULTS Urine 03/27/2015 6:31 PM FISHING VESSEL CAPTAIN Erlin Simental MD LAB BLOOD ORDERABLES Final Res ult Performing Organization Address [facility] de Phone Number HISTORICAL RESULTS * (ABNORMAL) Urine microscopy (03/27/2015 6:31 PM FISHING VESSEL CAPTAIN) RBC, ur 9(H) 0 - 3 /hpf HISTORICA L RESULTS WBC, ur 2 0 - 5 /hpf HISTORICA L RESULTS Bacteria, ur Negative Trace HISTORI ESTELLE RESULTS Epithelial cells, renal, ur 0 0 - 0 /hpf HISTORICAL RESULTS Epithelial cells, squamous, ur >20 /lpf HISTORICAL RESULTS Mucus, ur Small /hpf HISTORICAL RESULTS Urine 03/27/2015 6:31 PM FISHING VESSEL CAPTAIN Erlin Simental MD LAB BLOOD ORDERABLES Final Res ult Performing Organization Address [facility] de Phone Number HISTORICAL RESULTS * Plasma hepatic function panel (03/27/2015 6:31 PM FISHING VESSEL CAPTAIN) Protein, pl 7.9 6.5 - 8.5 g/dl HISTORICAL RESULTS Alb 4.2 3.6 - 5.0 g/dl HISTORICAL RESULTS Bilirubin 0.4 0.3 - 1.1 mg/dl HISTORICAL RESULTS Bilirubin, direct 0.1 0.0 - 0.3 mg/dl HISTORICAL RESULTS Alk phos 72 38 - 126 Units/L HISTORICAL RESULTS AST 20 11 - 47 Units/L HISTORICAL RESULTS ALT 31 7 - 53 Units/L HISTORICAL RESULTS Plasma 03/27/2015 6:31 PM FISHING VESSEL CAPTAIN Result [facility] Erlin Simental MD LAB BLOOD ORDERABLES Final Res t Performing Organization Address [facility] de Phone Number HISTORICAL RESULTS * (ABNORMAL) Plasma basic metabolic panel (03/27/2015 6:31 PM FISHING VESSEL CAPTAIN) Sodium 139 135 - 145 mmol/L HISTORICAL RESULTS K, pl 3.7 3.3 - 4.9 mmol/L HISTORICAL RESULTS Chloride 107 97 - 110 mmol/L HISTORICAL RESULTS CO2 19(L) 22 - 32 mmol/L HISTORICAL RESULTS A. gap 13 0 - 16 mmol/L HISTORICAL RESULTS Glucose 86 70 - 199 mg/dl HISTORICAL RESULTS BUN 15 8 - 25 mg/dl HISTORICAL RESULTS Creatinine 0.71 0.60 - 1.10 mg/dl HISTORICAL RESULTS Calcium 9.4 8.6 - 10.3 mg/dl HISTORICAL RESULTS Plasma 03/27/2015 6:31 PM FISHING VESSEL CAPTAIN Result [facility] Erlin Simental MD LAB BLOOD ORDERABLES Final Res t Performing Organization Address [facility] de Phone Number HISTORICAL RESULTS * (ABNORMAL) Serum lipase (03/27/2015 6:31 PM FISHING VESSEL CAPTAIN) Lip 186(H) 0 - 99 Units/L HISTORICAL RESULTS Serum 03/27/2015 6:31 PM FISHING VESSEL CAPTAIN Result [facility] Erlin Simental MD LAB BLOOD ORDERABLES Final Res t Performing Organization Address [facility] de Phone Number HISTORICAL RESULTS * (ABNORMAL) Blood cell count (CBC) (03/27/2015 6:31 PM FISHING VESSEL CAPTAIN) WBC 12.5(H) 3.8 - 9.8 K/cumm HISTORICAL RESULTS RBC 5.13(H) 3.90 - 5.00 M/cumm HISTORICAL RESULTS Hgb 14.5 12.1 - 15.1 g/dl HISTORICAL RESULTS Hct 45.5(H) 36.1 - 44.3 % HISTORICAL RESULTS MCV 88.8 80.0 - 97.6 fl HISTORICAL RESULTS MCH 28.3 26.7 - 33.7 pg HISTORICAL RESULTS MCHC 31.9(L) 32.7 - 35.5 g/dl HISTORICAL RESULTS Rdw 14.2 11.8 - 14.6 % HISTORICAL RESULTS Platelets 374 140 - 440 K/cumm HISTORICAL RESULTS MPV 7.6 6.8 - 10.4 fl HISTORICAL RESULTS Neutrophils 74.3 38.7 - 74.5 % HISTORICAL RESULTS Lymphocytes 19.2(L) 20.0 - 54.3 % HISTORICAL RESULTS Monos 5.2 4.3 - 13.5 % HISTORICAL RESULTS Eosinophils 0.7 0.0 - 6.0 % HISTORICAL RESULTS Basophils 0.6 0.0 - 3.0 % HISTORICAL RESULTS Neutrophils, abs 9.3(H) 1.8 - 6.6 K/cumm HISTORICAL RESULTS Lymphocytes, abs 2.4 1.2 - 3.3 K/cumm HISTORICAL RESULTS Monocytes, absolute 0.7 0.2 - 1.2 K/cumm HISTORICAL RESULTS Eosinophils, abs 0.1 0.0 - 0.5 K/cumm HISTORICAL RESULTS Basophils, abs 0.1 0.0 - 0.2 K/cumm HISTORICAL RESULTS Blood specimen (specimen) 03/27/2015 6:31 PM FISHING VESSEL CAPTAIN us Erlin Simental MD LAB BLOOD ORDERABLES Final Res ult HISTORICAL RESULTS documented in this encounter Visit Diagnoses Diagnosis Diverticulitis of intestine without perforation or abscess without bleeding Acidosis Abnormal results of thyroid function studies Nonspecific abnormal results of thyroid function study Migraine without status migrainosus, not intractable Thyrotoxicosis without thyroid storm Anemia Unspecified anemia documented in this encounter
--- OUTSIDE RECORDS SUMMARY | 2024-04-29 19:25 | XMS_ITS | Encounter Summary ---
Author Organization [facility] Facility Care Team Providers Care Chief Of Pediatric Urology Name Role Phone Unavailable Primary Care Provider Unavailabl e Encounter Details Date Type Department Care Team (Late st Contact Info) Description 06/27/2015 2:07 PM [employer] - 06/27/2015 10:01 PM [facility] Hospital Encounter [facility] Aristeo Alicea MD PhD [address] [place] [address] Pain of left hand; Pain of right hand; Pain in left ankle; Pain in right ankle; Effusion of left hand; Effusion of right hand; Effusion of left foot; Effusion of right foot; Other fdc (current) drug therapy; Cigarette nicotine dependence, uncomplicated Social History Tobacco Use Types Packs/Day Years Used Date Smoking Tobacco: Never Assessed Comments Unknown Sex and Gender Information Value Date Recorded Sex Assigned at Not on file Legal Sex Female 9:24 PM [employer] Gender Identity Female 08/14/2022 11:32 AM CDT Sexual Orientation Straight 02/13/2023 7: 01 AM CDT documented as of this encounter Plan of Treatment Not on file documented as of this encounter Visit Diagnoses Diagnosis Pain of left hand Pain of right hand Pain in left ankle Pain in right ankle Effusion of left hand Effusion of right hand Effusion of left foot Effusion of right foot Other life skills worker (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
--- OUTSIDE RECORDS SUMMARY | 2024-04-29 19:25 | XMS_ITS | Encounter Summary ---
Author Organization [facility] logy Address [address] [place] [phone] Phone Care Team Providers Care Console Attendant Name Role Phone Feliciano Dash MD Primary Care Provider [phone] Reason for Visit * Reason Onset Date Comments Pharmacy [facility] 10/19/2016 Encounter Details Date Type Department Care Team (Late st Contact Info) Description 10/19/[address] [address] Rach Granda. 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 to contact pt for shipment. documented in this encounter Plan of Treatment Not on file documented as of this encounter Visit Diagnoses Not on filedocumented in this encounter Care Teams Console Attendant Relationship Specialty Start Date End Date Feliciano Dash MD PCP - General 07/20/16 02/17/17 documented as of this encounter
--- OUTSIDE RECORDS SUMMARY | 2024-04-29 19:25 | XMS_ITS | Encounter Summary ---
Author Organization [facility] logy Address [address] [place] [phone] Phone Care Team Providers Care Volleyball Coach Name Role Phone Isaiah Quiros MD Unavailable Isaiah Quiros MD Primary Care Provider [phone] Kumar CARRILLO MD, Cash Howard Unavailable [phone] Reason for Referral * Diagnostic Imaging (Routine) - Closed Specialty Diagnoses / Procedures Referred By Kaylynn phillips Referred To Contact Diagnoses Rheumatoid arthritis of multiple sites without rheumatoid factor (CMS/HCC) (HCC) Encounter for long-term (current) use of medications Procedures US Hand Complete Miriam Frye PA Phone: tel: fax: [address] [address] Referral ID Status Reason Start Date Expiration Date Visits Re quested Visits Authorized [id number] Closed 09/19/2017 03/18/2018 1 1 Reason for Visit * Diagnostic Imaging (Routine) - Closed Specialty Diagnoses / Procedures Referred By Kaylynn phillips Referred To Contact Diagnoses Rheumatoid arthritis of multiple sites without rheumatoid factor (CMS/HCC) (HCC) Encounter for long-term (current) use of medications Procedures US Hand Complete Miriam Frye PA Phone: tel: fax: [facility] [address] [place] [address] Referral ID Status Reason Start Date Expiration Date Visits Re quested Visits Authorized [id number] Closed 09/19/2017 03/18/2018 1 1 Encounter Details Date Type Department Care Team (Latest Contact Info) Description 09/30/2017 2:38 PM CDT - 09/30/2017 11:59 PM CDT Hospital Encounter [facility] [address] [place] [phone] Rheumatoid arthritis of multiple sites without rheumatoid factor (CMS/HCC); Encounter for long-term (current) use of medications Discharge Disposition: Discharge to home or self care Social History Tobacco Use Types Packs/Day Years Used Date Smoking Tobacco: Never Alcohol Use Standard Drinks/Week Comments No 0 (1 standard drink = 0.6 oz pur e alcohol) Comments Unknown Sex and Gender Information Value Date Recorded Sex Assigned at Not on file 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 4 Syringe 2 09/20/2017 01/28/20 18 folic acid (FOLVITE) 1 mg tablet TAKE 1 TABLET BY ORAL ROUTE EVERY DAY 90 0 03/14/2016 08/15/19 19 guaiFENesin (ROBITUSSIN) syrup 100 mg/5 mL Take [...] ONE TABLET ON TONGUE EVERY 8 HOURS FOR 2 DAYS 60 tablet 04/08/2017 02/02/20 18 raNITIdine (ZANTAC) 50 mg/2 mL (25 mg/mL) injection infuse by intravenous route every 8 hours over 0 vial 0 05/17/2016 08/31/19 22 Saccharomyces boulardii (FLORASTOR) 250 mg capsule Take 250 mg by mouth 02/02/2017 01/18/20 23 documented as of this encounter Discharge Disposition Disposition Code Departure Means Destination Discharge to home or self care documented in this encounter Plan of Treatment Not on file documented as of this encounter Procedures Procedure Name Priority Date/Time Associated Diagnosis Comments US HAND COMPLETE Schedule Routine, Read Routine (OP Routine) 09/30/2017 3:16 PM CDT Rheumatoid arthritis of multiple sites without rheumatoid factor (CMS/HCC) Encounter for long-term (current) use of medications documented in this encounter Results * US Hand Complete (09/30/2017 3:16 PM CDT) Anatomical Region Laterality Modality Hand N/A Ultrasound us Miriam [facility] IMG US PROCEDURES Final Result documented in this encounter Visit Diagnoses Diagnosis Rheumatoid arthritis of multiple sites without rheumatoid factor (CMS/[facility]) (HCC) Encounter for long-term (current) use of medications Encounter for long-term (current) use of other medications documented in this encounter Care Teams Volleyball Coach Relationship Specialty Start Date End Date Isaiah Quiros MD [address] [place] [address] PCP - General Internal Medicine 04/01/17 06/02/20 Isaiah Quiros MD [address] [place] [address] Internal Medicine 02/18/17 03/19/21 Cash Heath III, MD [address] [facility] [address] [place] [address] Rheumatology 04/12/17 documented as of this encounter
--- OUTSIDE RECORDS SUMMARY | 2024-04-29 19:25 | XMS_ITS | Encounter Summary ---
Author Organization [facility] logy Address [address] [place] [phone] Phone Care Team Providers Care Outboard Motor Tester Name Role Phone Isaiah Quiros MD Unavailable Isaiah Quiros MD Primary Care Provider [phone] Kumar CARRILLO MD, Cash Howard Unavailable [phone] Reason for Visit * Reason Onset Date Comments forgot a few things yesterday 09/20/2017 Encounter Details Date Type Department Care Team (Late st Contact Info) Description 09/20/2017 Telephone [facility] [address] [address] Tiara Rainey forgot a few things yesterday Social History Tobacco Use Types Packs/Day Years Used Date Smoking Tobacco: Never Alcohol Use Standard Drinks/Week Comments No 0 (1 standard drink = 0.6 oz pur e alcohol) Comments Unknown Sex and Gender Information Value Date Recorded Sex Assigned at Not on file 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 * Telephone Encounter - Miriam Frye PA - 09/20/2017 11:11 AM CDT Needs to see pcp for hair loss and get thyroid checked since she is not on meds from us causing this, also the same for dizziness and confusion. Her knees and rt shoulder most likely form her arthritis being under treated and we restarted her enbrel. * Telephone Encounter - Tiara Rainey - 09/20/2017 10:07 AM CDT Pt was in for blood draw & left message w/Basilia that she forgot to tell BB yesterday a few things.1) She hair loss for a while before AZA 2) dizziness & confusion 3) Knees & feet exponentially worse 4) Rt shoulder issues-pain when moves or weather changes--ice & heat help while on there documented in this encounter Plan of Treatment Not on file documented as of this encounter Visit Diagnoses Not on filedocumented in this encounter Care Teams Outboard Motor Tester Relationship Specialty Start Date End Date Isaiah Quiros MD [address] [place] [address] PCP - General Internal Medicine 04/01/17 06/02/20 Isaiah Quiros MD [address] [place] [address] Internal Medicine 02/18/17 03/19/21 Cash Heath III, MD [address] [facility] [address] [place] [address] Rheumatology 04/12/17 documented as of this encounter
--- OUTSIDE RECORDS SUMMARY | 2024-04-29 19:25 | XMS_ITS | Encounter Summary ---
Author Organization [facility] Facility Care Team Providers Care Workers Compensation Claims Specialist Name Role Phone Feliciano Dash MD Primary Care Provider [phone] Encounter Details Date Type Department Care Team (Late st Contact Info) Description 02/08/2016 6:55 PM CDT - 02/08/2016 11:59 PM CDT Hospital Encounter [facility] Cash Heath III, MD [address] [address] Miriam Frye PA [address] [place] [address] Rheumatoid arthritis of multiple sites without rheumatoid factor (CMS/HCC) Social History Tobacco Use Types Packs/Day Years Used Date Smoking Tobacco: Never Alcohol Use Standard Drinks/Week Comments No 0 (1 standard drink = 0.6 oz pur e alcohol) Comments Unknown Sex and Gender Information Value Date Recorded Sex Assigned at Not on file 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PROCESS Gender Identity Female 08/14/2022 11:32 AM CDT [...] Associated Diagnosis Comments PLASMA C-REACTIVE PROTEIN Routine 02/08/2016 4:15 PM CDT PLASMA COMPREHENSIVE METABOLIC PANEL Routine 02/08/2016 4:15 PM CDT BLOOD ERYTHROCYTE SEDIMENTATION RATE (ESR) Routine 02/08/2016 4:15 PM CDT BLOOD CELL COUNT (CBC), MORPHOLOGIC EXAM Routine 02/08/2016 4:15 PM CDT DISCHARGE LABORATORY CUMULATIVE REPORT 02/08/2016 documented in this encounter Results * Blood erythrocyte sedimentation rate (ESR) (02/08/2016 4:15 PM CDT) Erythrocyte sedimentation rate 8.0 0.0 - 20.0 mm/hr CDR HISTORICAL RESULTS Blood specimen (specimen) 02/08/2016 4:15 PM CDT us Miriam [facility] LAB BLOOD ORDERAB LES Final Result CDR HISTORICAL RESULTS * (ABNORMAL) Blood cell count (CBC), morphologic exam (02/08/2016 4:15 PM CDT) WBC 7.7 3.8 - 9.9 K/cumm CDR HISTORICAL RESULTS RBC 5.19 3.90 - 5.20 M/cumm CDR HISTORICAL RESULTS Hgb 14.4 11.9 - 15.5 g/dl CDR HISTORICAL RESULTS Hct 45.1 35.6 - 45.5 % CDR HISTORICAL RESULTS MCV 86.9 81.3 - 96.4 fl CDR HISTORICAL RESULTS MCH 27.7 27.1 - 33.3 pg CDR HISTORICAL RESULTS MCHC 31.9(L) 32.3 - 35.7 g/dl CDR HISTORICAL RESULTS RDW 47.0 35.7 - 48.1 fl CDR HISTORICAL RESULTS Rdw 14.7 11.1 - 14.9 % CDR HISTORICAL RESULTS Platelets 428(H) 150 - 400 K/cumm CDR HISTORICAL RESULTS MPV 9.0(L) 9.1 - 12.3 fl CDR HISTORICAL RESULTS Neutrophils 85.1(H) 44.0 - 80.0 % CDR HISTORICAL RESULTS Lymphocytes 10.1(L) 13.0 - 44.0 % CDR HISTORICAL RESULTS Monos 2.7 2.0 - 11.0 % CDR HISTORICAL RESULTS Eosinophils 0.0 0.0 - 6.0 % CDR HISTORICAL RESULTS Basophils 0.4 0.0 - 3.0 % CDR HISTORICAL RESULTS Immature granulocytes 1.7(H) 0.0 - 1.0 % CDR HISTORICAL RESULTS NRBC 0.0 0.0 - 0.2 % CDR HISTORICAL RESULTS Neutrophils, abs 6.6(H) 1.7 - 6.5 K/cumm CDR HISTORICAL RESULTS Lymphocytes, abs 0.8(L) 0.8 - 3.3 K/cumm CDR HISTORICAL RESULTS Monocytes, absolute 0.2 0.2 - 0.8 K/cumm CDR HISTORICAL RESULTS Eosinophils, abs 0.0 0.0 - 0.5 K/cumm CDR HISTORICAL RESULTS Basophils, abs 0.0 0.0 - 0.1 K/cumm CDR HISTORICAL RESULTS Immature granulocyte, abs 0.1(H) 0.0 - 0.1 K/cumm CDR HISTORICAL RESULTS NRBC, abs 0.00 0.00 - 0.01 K/cumm CDR HISTORICAL RESULTS Blood specimen (specimen) 02/08/2016 4:15 PM CDT Mir[facility] LAB BLOOD ORDERAB LES Final Result CDR HISTORICAL RESULTS * (ABNORMAL) Plasma comprehensive metabolic panel (02/08/2016 4:15 PM CDT) Sodium 142 136 - 146 mmol/L CDR HISTORICAL RESULTS K, pl 4.5 3.3 - 4.9 mmol/L CDR HISTORICAL RESULTS Chloride 109(H) 98 - 108 mmol/L CDR HISTORICAL RESULTS CO2 25 22 - 33 mmol/L CDR HISTORICAL RESULTS BUN 14 7 - 18 mg/dl CDR HISTORICAL RESULTS Glucose 118 70 - 140 mg/dl CDR HISTORICAL RESULTS Comment: Glucose is assumed to be non-fasting. ?? Fasting Glucose normal ranges are: 0 days - 2 months: ? 40 mg/dL - 100 mg/dL 2 months - 999 years: ?70 mg/dL - 99 mg/dL Creatinine 1.01 0.50 - 1.50 mg/dl CDR HISTORICAL RESULTS eGFR 60 ml/min/1.7 3 m2 CDR HISTORICAL RESULTS Comment: GFR Reference Range: = > 60 mL/min/1.73 m2 This result has been calculated assuming the patient is Non-. ??If the patient is , please multiply this result by 1.21. The GFR value is not recommended for medication dose adjustment for renal function, creatinine clearance values should be used. Calcium 10.2 8.5 - 10.5 mg/dl CDR HISTORICAL RESULTS Bilirubin 0.4 0.1 - 1.2 mg/dl CDR HISTORICAL RESULTS Protein, pl 7.7 6.0 - 8.5 g/dl CDR HISTORICAL RESULTS Alb 3.9 3.4 - 5.0 g/dl CDR HISTORICAL RESULTS Alk phos 72 38 - 126 IUnits/L CDR HISTORICAL RESULTS ALT 26 14 - 54 IUnits/L CDR HISTORICAL RESULTS AST 19 15 - 41 IUnits/L CDR HISTORICAL RESULTS Plasma 02/08/2016 4:15 PM CDT Mir[facility] LAB BLOOD ORDERAB LES Final Result Performing Organization Address City/[facility]/ZIP Co de Phone Number CDR HISTORICAL RESULTS * (ABNORMAL) Plasma C-reactive protein (02/08/2016 4:15 PM CDT) C-RP 10.3(H) 0.00 - 10.00 mg/L CDR HISTORICAL RESULTS Plasma 02/08/2016 4:15 PM CDT Miriam [facility] LAB BLOOD ORDERAB LES Final Result CDR HISTORICAL RESULTS * DISCHARGE LABORATORY CUMULATIVE REPORT (02/08/2016) Narrative 02/08/2016 Ordered by an unspecified provider. Historical Provider LAB BLOOD ORDERABLES Abigail l Result documented in this encounter Visit Diagnoses Diagnosis Rheumatoid arthritis of multiple sites without rheumatoid factor (CMS/HCC) (HCC) documented in this encounter Care Teams Workers Compensation Claims Specialist Relationship Specialty Start Date End Date Feliciano Dash MD PCP - General 07/13/15 03/07/16 documented as of this encounter
--- OUTSIDE RECORDS SUMMARY | 2024-04-29 19:25 | XMS_ITS | Encounter Summary ---
Author Organization [facility] Facility Care Team Providers Care Concrete Block Maker Name Role Phone Unavailable Primary Care Provider Unavailabl e Encounter Details Date Type Department Care Team (Late st Contact Info) Description 12/06/2014 - 12/06/2014 11:59 PM CDT Hospital Encounter [facility] Shelley Albrecht Calculus of kidney Social History Tobacco Use Types Packs/Day Years Used Date Smoking Tobacco: Never Assessed Comments Unknown Sex and Gender Information Value Date Recorded Sex Assigned at Not on file Legal Sex Female 9:24 PM 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 Gender Identity Female 08/14/2022 11:32 AM CDT Sexual Orientation Straight 02/13/2023 7: 01 AM CDT documented as of this encounter Plan of Treatment Not on file documented as of this encounter Procedures Procedure Name Priority Date/Time Associated Diagnosis Comments URINE (AEROBIC) CULTURE, CDR Routine 12/06/2014 9:50 PM CDT URINE MICROSCOPY Routine 12/06/2014 4:50 PM CDT ALL MICROBIOLOGY REPORT SECTION Routine 12/06/2014 12:00 AM CDT DISCHARGE LABORATORY CUMULATIVE REPORT 12/06/2014 documented in this encounter Results * Urine (aerobic) culture (12/06/2014 9:50 PM CDT) Urine (Unknown) 12/06/2014 9 :50 PM CDT 12/06/2014 10:01 PM CDT Narrative HISTORICAL RESULTS - 12/08/2014 10:15 AM CDT No growth Historical Provider LAB MICROBIOLOGY - GENERA L ORDERABLES Final Result Performing Organization Address [facility] Co de Phone Number HISTORICAL RESULTS * (ABNORMAL) Urine microscopy (12/06/2014 4:50 PM CDT) RBC, ur 4(H) 0 - 3 /hpf HISTORICA L RESULTS WBC, ur 11(H) 0 - 5 /hpf HISTORICA L RESULTS Bacteria, ur 2+(A) Trace HISTORI ESTELLE RESULTS Epithelial cells, renal, ur 0 0 - 0 /hpf HISTORICAL RESULTS Epithelial cells, squamous, ur >20 /lpf HISTORICAL RESULTS Mucus, ur Small /hpf HISTORICAL RESULTS Urine 12/06/2014 4:50 PM CDT Narrative HISTORICAL RESULTS - 12/06/2014 5:55 PM CDT Client / Account bill? No Client Account Number and Description: Shelley LIMON BLOOD ORDERABLES Final Resul t Performing Organization Address [facility] de Phone Number HISTORICAL RESULTS * DISCHARGE LABORATORY CUMULATIVE REPORT (12/06/2014) Narrative 12/06/2014 Ordered by an unspecified provider. Historical Provider LAB BLOOD ORDERABLES Abigail l Result * All Microbiology Report Section (12/06/2014 12:00 AM CDT) 12/06/2014 Narrative HISTORICAL RESULTS - 12/08/2014 1:09 PM CDT ? [facility] ?[address] [facility] [address] ?[place], [place] [address] ? Patient Name: ??JULIAN GLAO ? Med Rec Number: [id number] ? Fin Number: ?[id number] ? Date: ?1975 ? Sex/Age: ? Female 39 years ? Admit Date: ?12/06/2014 ? Discharge Date: 12/06/2014 ? Doctor: ?Park , Shelley M ? Facility: ?[facility] ? Location: ?[facility] ?* Abnormal ??A Alert ??f Footnote ??^ Corrected ??L Low ??H High ?i Interp Data ??@ Ref Lab ? Chart Type:Cumulative ?* * * * MICROBIOLOGY - URINE * * * * ?PROCEDURE: Urine Culture ? SOURCE: Urine ? COLLECTED: 12/06/ ??2150 ?BODY SITE: ? STARTED: 12/06/ ??2201 ? FREE TEXT SOURCE: ? FINAL REPORT ? REPORTED: 12/08/14 1015 ? No growth ? ORDER COMMENTS ? (1)Client / Account bill? No ? Client Account Number and Description: ? us Historical Provider LAB MICROBIOLOGY - GENERA L ORDERABLES Final Result HISTORICAL RESULTS documented in this encounter Visit Diagnoses Diagnosis Calculus of kidney documented in this encounter
--- OUTSIDE RECORDS SUMMARY | 2024-04-29 19:26 | XMS_ITS | Encounter Summary ---
Author Organization 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 Gender Identity Female 08/14/2022 11:32 AM CDT Sexual Orientation Straight 02/13/2023 7: 01 AM CDT documented as of this encounter Plan of Treatment Not on file documented as of this encounter Procedures Procedure Name Priority Date/Time Associated Diagnosis Comments XR ABDOMEN AP 1 VIEW Routine 10/06/2012 9:18 PM CDT CBC WITH AUTO DIFFERENTIAL Routine 10/06/2012 7:05 PM CDT LIPASE Routine 10/06/2012 7:05 PM CDT AMYLASE Routine 10/06/2012 7:05 PM CDT COMPREHENSIVE METABOLIC PANEL Routine 10/06/2012 7:05 PM CDT URINALYSIS AND REFLEX TO MICROSCOPIC AND CULTURE Routine 10/06/2012 5:40 PM CDT MICROBIOLOGY SPECIMEN REPORT (CONVERTED) Routine 10/06/2012 5:10 PM CDT documented in this encounter Results * XR Abdomen Ap 1 Vw (10/06/2012 9:18 PM CDT) Anatomical Region Laterality Modality Body, Abdomen N/A Radiographic Smita ging 10/06/2012 9:18 PM CDT Impressions 10/20/2012 4:36 PM CDT ?? Probable nonobstructing right renal calculi. THIS IS AN ELECTRONICALLY VERIFIED REPORT 10/20/2012 4:30 PM: ??Sofia Mitchell M.D. Sofia Mitchell M.D. KL:aj 09:34 PM 03:14 PM [EOD] Narrative 10/20/2012 4:36 PM CDT EXAMINATION: ??Abdomen radiographs HISTORY: ??Abdominal pain. ??History of kidney stones. TECHNIQUE: ??Supine frontal views of the abdomen pelvis were obtained. COMPARISON: None available. FINDINGS: ??Radiodensities are seen projecting over the right kidney, the largest of which measures 7 mm of the lower pole. These are likely due to nonobstructing renal calculi. No definite calculus is seen projecting over the left kidney, the expected course of the ureters or the urinary bladder. Bowel gas pattern is nonobstructed and nonspecific. ??Osseous structures appear grossly intact as imaged. Procedure Note Provider, MD John - 09/07/2020 EXAMINATION: Abdomen radiographs HISTORY: Abdominal pain. History of kidney stones. TECHNIQUE: Supine frontal views of the abdomen pelvis were obtained. COMPARISON: None available. FINDINGS: Radiodensities are seen projecting over the right kidney, the largest of which measures 7 mm of the lower pole. These are likely due to nonobstructing renal calculi. No definite calculus is seen projecting overthe left kidney, the expected course of the ureters or the urinary bladder. Bowel gas pattern is nonobstructed and nonspecific. Osseous structuresappear grossly intact as imaged. IMPRESSION: Probable nonobstructing right renal calculi. THIS IS AN ELECTRONICALLY VERIFIED REPORT 10/20/2012 4:30 PM: Sofia Mitchell M.D. Sofia Mitchell M.D. KL:aj 09:34 PM 03:14 PM [EOD] Historical Provider IMG XR PROCEDURES Final R esult * (ABNORMAL) Lipase (10/06/2012 7:05 PM CDT) Lipase 102(H) 13 - 60 U/L 10/22/2012 6:07 PM CDT [facility] HISTORICAL RESULTS 10/06/2012 7:05 PM CDT 10/22/2012 8:58 AM CDT Historical Provider LAB BLOOD ORDERABLES Abigail l Result [facility] HISTORICAL RESULTS * (ABNORMAL) Amylase (10/06/2012 7:05 PM CDT) Amylase 123(H) 28 - 100 U/L 10/22/2012 6:07 PM CDT [facility] HISTORICAL RESULTS 10/06/2012 7:05 PM CDT 10/22/2012 8:58 AM CDT Historical Provider LAB BLOOD ORDERABLES Abigail l Result [facility] HISTORICAL RESULTS * Comprehensive metabolic panel (10/06/2012 7:05 PM CDT) [facility] Sodium 139 135 - 145 mmol/L 10/22/2012 6:07 PM [facility] HISTORICAL RESULTS Potassium 3.7 3.3 - 5.1 mmol/L 10/22/2012 6:07 PM [facility] HISTORICAL RESULTS Chloride 106 96 - 108 mmol/L 10/22/2012 6:07 PM [facility] HISTORICAL RESULTS Carbon Dioxide 22 22 - 32 mmol/L 10/22/2012 6:07 PM [facility] HISTORICAL RESULTS Anion Gap 11 10/22/2012 6:07 PM [facility] HISTORICAL RESULTS Glucose 87 70 - 110 mg/dL 10/22/2012 6:07 PM [facility] HISTORICAL RESULTS BUN 16 6 - 20 mg/dL 10/22/2012 6:07 PM [facility] HISTORICAL RESULTS Creatinine 0.7 0.5 - 1.1 mg/dL 10/22/2012 6:07 PM [facility] HISTORICAL RESULTS Kidney Disease Stage > 90 mL/MIN 10/22/2012 6:07 PM [facility] HISTORICAL RESULTS Comment: NOTE; ??The GFR is [...] Kidney failure or on dialysis @ Calcium 2.35 2.15 - 2.55 mmol/L 10/22/2012 6:07 PM [facility] HISTORICAL RESULTS Total Protein 7.8 6.4 - 8.4 g/dL 10/22/2012 6:07 PM T [facility] HISTORICAL RESULTS Albumin 4.9 3.5 - 5.2 g/dL 10/22/2012 6:07 PM [facility] HISTORICAL RESULTS Globulin 2.9 2.3 - 3.5 gm/dL 10/22/2012 6:07 PM T [facility] HISTORICAL RESULTS Albumin/Globulin Ratio 1.7 1.1 - 1.8 10/22/2012 6:07 PM T [facility] HISTORICAL RESULTS Total Bilirubin 0.2 0.0 - 1.2 mg/dL 10/22/2012 6:07 PM T [facility] HISTORICAL RESULTS AST 13 0 - 32 U/L 10/22/2012 6:07 PM [facility] HISTORICAL RESULTS ALT 15 0 - 31 U/L 10/22/2012 6:07 PM [facility] HISTORICAL RESULTS Alkaline Phosphatase 68 35 - 104 U/L 10/22/2012 6:07 PM [facility] HISTORICAL RESULTS 10/06/2012 7:05 PM CDT 10/22/2012 8:58 AM CDT us Historical Provider LAB BLOOD ORDERABLES Abigail wahl Result [facility] HISTORICAL RESULTS * (ABNORMAL) CBC with auto differential (10/06/2012 7:05 PM CDT) WBC 8.1 4.6 - 10.2 x10 3/ul 10/16/2012 8:55 AM T [facility] HISTORICAL RESULTS RBC 4.88(H) 3.76 - 4.80 x10 6/ul 10/16/2012 8:55 AM T [facility] HISTORICAL RESULTS Hemoglobin 14.4 11.0 - 15.0 g/dl 10/16/2012 8:55 AM T [facility] HISTORICAL RESULTS Hct 43.0 33.0 - 43.0 % 10/16/2012 8:55 AM [facility] HISTORICAL RESULTS MCV 88.1 80.0 - 97.0 fl 10/16/2012 8:55 AM [facility] HISTORICAL RESULTS MCH 29.5 27.0 - 31.2 pg 10/16/2012 8:55 AM [facility] HISTORICAL RESULTS MCHC 33.5 31.8 - 35.4 g/dl 10/16/2012 8:55 AM [facility] HISTORICAL RESULTS Plt Count 292 124 - 400 x10 3/ul 10/16/2012 8:55 AM [facility] HISTORICAL RESULTS Differential Method AUTOMATED DIFF --------- -- 10/16/2012 8:55 AM [facility] HISTORICAL RESULTS Neut % 42.2 37.0 - 85.0 % 10/16/2012 8:55 AM [facility] HISTORICAL RESULTS Immature Gran % 0.4 0.0 - 3.0 % 10/16/2012 8:55 AM [facility] HISTORICAL RESULTS Lymph % 49.3(H) 5.0 - 45.0 % 10/16/2012 8:55 AM [facility] HISTORICAL RESULTS [place] % 5.2 3.0 - 15.0 % 10/16/2012 8:55 AM [facility] HISTORICAL RESULTS Eos % 1.7 0.0 - 7.0 % 10/16/2012 8:55 AM [facility] HISTORICAL RESULTS Baso % 1.2 0.0 - 2.0 % 10/16/2012 8:55 AM [facility] HISTORICAL RESULTS ABSOLUTE COUNTS ABSOLUTE COUNTS --------- -- 10/16/2012 8:55 AM [facility] HISTORICAL RESULTS Absolute Neuts (auto) 3.4 1.7 - 8.7 x10 3/ul 10/16/2012 8:55 AM [facility] HISTORICAL RESULTS Immature Gran # 0.0 0.0 - 0.3 x10 3/ul 10/16/2012 8:55 AM [facility] HISTORICAL RESULTS Absolute Lymphs (auto) 4.0 0.2 - 4.6 x10 3/ul 10/16/2012 8:55 AM [facility] HISTORICAL RESULTS Absolute Monos (auto) 0.4 0.1 - 1.5 x10 3/ul 10/16/2012 8:55 AM [facility] Absolute Eos (auto) 0.1 0.0 - 0.7 x10 3/ul 10/16/2012 8:55 AM T [facility] HISTORICAL RESULTS Absolute Basos (auto) 0.1 0.0 - 0.2 x10 3/ul 10/16/2012 8:55 AM T [facility] HISTORICAL RESULTS 10/06/2012 7:05 PM CDT 10/16/2012 8:53 AM CDT Narrative [facility] HISTORICAL RESULTS - 10/16/2012 8:55 AM CDT DOWNTIME DATA RECOVERY AND RE-ENTRY ?? BY LAB:[id number] 10/16/12 by: Myla Parker us Historical Provider LAB BLOOD ORDERABLES Abigail wahl Result [facility] HISTORICAL RESULTS * (ABNORMAL) Urinalysis reflex to microscopic and culture (10/06/2012 5:40 PM CDT) Ur Collection Type CLEAN CATCH 10/17/2012 3:16 PM [facility] HISTORICAL RESULTS Ur Culture Indicated? C&S INDICATED 10/17/2012 3:16 PM [facility] HISTORICAL RESULTS Comment:Culture report to karlo lombardi. Urine Color YELLOW YELLOW 10/17/2012 3:16 PM [facility] HISTORICAL RESULTS Urine Clarity HAZY CLEAR 10/17/2012 3:16 PM [facility] HISTORICAL RESULTS Urine Glucose (UA) NORMAL NORMAL mg/dL 10/17/2012 3:16 PM [facility] HISTORICAL RESULTS Urine Bilirubin NEGATIVE NEGATIVE mg/dl 10/17/2012 3:16 PM [facility] HISTORICAL RESULTS Urine Ketones NEGATIVE NEGATIVE mg/dL 10/17/2012 3:16 PM [facility] HISTORICAL RESULTS Ur Specific [place] 1.017 1.005 - 1.025 10/17/2012 3:16 PM [facility] HISTORICAL RESULTS Urine Blood NEGATIVE NEGATIVE Marcelo/ul 10/17/2012 3:16 PM [facility] HISTORICAL RESULTS Urine pH 5.5 5.0 - 8.0 10/17/2012 3:16 PM [facility] HISTORICAL RESULTS Urine Protein NEGATIVE NEGATIVE mg/dL 10/17/2012 3:16 PM CDT [facility] HISTORICAL RESULTS Urine Urobilinogen NORMAL NORMAL mg/dL 10/17/2012 3:16 PM T [facility] HISTORICAL RESULTS Urine Nitrite NEGATIVE NEGATIVE 10/17/2012 3:16 PM T [facility] HISTORICAL RESULTS Ur Leukocyte Esterase 75(H) NEGATIVE Andrey/ul 10/17/2012 3:16 PM T [facility] HISTORICAL RESULTS Ur Microscopic Review Indicated or Ordered 10/17/2012 3:16 PM T [facility] HISTORICAL RESULTS Urine RBC 4 0 - 2 /HPF 10/17/2012 3:16 PM T [facility] HISTORICAL RESULTS Urine WBC 6 0 - 2 /HPF 10/17/2012 3:16 PM CDT [facility] HISTORICAL RESULTS Urine Bacteria RARE /HPF 10/17/2012 3:16 PM CDT [facility] HISTORICAL RESULTS Urine Mucus RARE /LPF 10/17/2012 3:16 PM T [facility] HISTORICAL RESULTS Ur Squamous Epith Cells FEW /LPF 10/17/2012 3:16 PM T [facility] HISTORICAL RESULTS Calcium Oxalate Crystal RARE /HPF 10/17/2012 3:16 PM CDT [facility] HISTORICAL RESULTS 10/06/2012 5:40 PM CDT 10/17/2012 1:54 PM CDT us Historical Provider LAB MICROBIOLOGY - GENERA L ORDERABLES Final Result [facility] HISTORICAL RESULTS * Microbiology Specimen Report (Converted) (10/06/2012 5:10 PM CDT) 10/06/2012 5:10 PM CDT 10/16/2012 9:02 AM CDT Narrative [facility] HISTORICAL RESULTS - 10/06/2012 5:10 PM CDT Microbiology Specimen Report (Converted) SPECIMEN [id number] ?? COLLECTED: 2012-10-06 17:10:00 ER ?? REQ#: [id number] REQUESTING DR: No Personal Physician ?? SOURCE: URINE ?? SP DESC: VOIDED --- PROCEDURE --- ?--- RESULT --- ?? CULTURE URINE ??(Final) ??- ??Performed at [facility] ? Nature of growth suggests contamination ? at the time of collection, or a delay in ? transport of specimen to the laboratory. ? Please recollect if clinically indicated. ? - [facility] ? [address] [facility] ? [place] [address] ? Hari Spain MD Procedure Note 07/12/2018 Microbiology Specimen Report (Converted) SPECIMEN [id number] COLLECTED: 2012-10-06 17:10:00 ER REQ#:[id number] REQUESTING DR: No Personal Physician SOURCE: URINE SP DESC: VOIDED --- PROCEDURE --- --- RESULT --- CULTURE URINE (Final) - Performed at [facility] [place] Nature of growth suggests contamination at the time of collection, or a delay in transport of specimen to the laboratory. Please recollect if clinically indicated. - [address] [address] Hari Spain MD us Historical Provider LAB BLOOD ORDERABLES Abigail wahl Result [facility] HISTORICAL RESULTS documented in this encounter Visit Diagnoses Diagnosis Calculus of kidney documented in this encounter
--- OUTSIDE RECORDS SUMMARY | 2024-04-29 19:26 | XMS_ITS | Encounter Summary ---
Author Organization [facility] Healthcare Address [address] [place] [address] Care Team Providers Care Metal Sprayer Machined Parts Name Role Phone Unavailable Primary Care Provider Unavailabl e Encounter Details Date Type Department Care Team (Latest Contact Info) Description 01/04/2014 6:53 PM CDT - 01/04/2014 9:02 PM CDT Hospital Encounter [facility] Effusion of lower leg joint; Localized osteoarthrosis, lower leg Social History Tobacco Use Types Packs/Day Years Used Date Smoking Tobacco: Never Assessed Comments Unknown Sex and Gender Information Value Date Recorded Sex Assigned at Not on file 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 Gender Identity Female 08/14/2022 11:32 AM CDT Sexual Orientation Straight 02/13/2023 7: 01 AM CDT documented as of this encounter Last Filed Vital Signs Vital Sign Reading Time Taken Comments Blood Pressure 140/82 01/04/2014 7:11 PM CDT Pulse 83 01/04/2014 7:11 PM CDT Temperature 37.2 ??C (98.9 ??F) 01/04/2014 7:11 PM CD T Respiratory Rate - - Oxygen Saturation 100% 01/04/2014 7:11 PM CDT Inhaled Oxygen Concentration - - Weight 72.6 kg (160 lb) 01/04/2014 7:11 PM CDT Height - - Body Mass Index 26.63 01/16/2013 6:32 PM CDT documented in this encounter Plan of Treatment Not on file documented as of this encounter Visit Diagnoses Diagnosis Effusion of lower leg joint Localized osteoarthrosis, lower leg Localized osteoarthrosis not specified whether primary or secondary, lower leg documented in this encounter
--- OUTSIDE RECORDS SUMMARY | 2024-04-29 19:26 | XMS_ITS | Encounter Summary ---
Author Organization [facility] Healthcare Address [address] [place] [address] Care Team Providers Care Hop Weigher Name Role Phone Unavailable Primary Care Provider Unavailabl e Encounter Details Date Type Department Care Team (Late st Contact Info) Description 01/16/2013 6:28 PM CDT - 01/16/2013 8:10 PM CDT Hospital Encounter [facility] Hari Hanson MD [address] [facility] [address] [place] [address] Contusion of foot; Striking against or struck accidentally by other stationary object without subsequent fall Social History Tobacco Use Types Packs/Day Years Used Date Smoking Tobacco: Never Assessed Comments Unknown Sex and Gender Information Value Date Recorded Sex Assigned at Not on file 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 Gender Identity Female 08/14/2022 11:32 AM CDT Sexual Orientation Straight 02/13/2023 7: 01 AM CDT documented as of this encounter Last Filed Vital Signs Vital Sign Reading Time Taken Comments Blood Pressure 135/77 01/16/2013 6:32 PM CDT Pulse 78 01/16/2013 6:32 PM CDT Temperature 36.8 ??C (98.2 ??F) 01/16/2013 6:32 PM CD T Respiratory Rate - - Oxygen Saturation 99% 01/16/2013 6:32 PM CDT Inhaled Oxygen Concentration - - Weight 69.4 kg (153 lb) 01/16/2013 6:32 PM CDT Height 165.1 cm (5' 5 ) 01/16/2013 6:32 PM CDT Body Mass Index 25.46 01/16/2013 6:32 PM CDT documented in this encounter Plan of Treatment Not on file documented as of this encounter Procedures Procedure Name Priority Date/Time Associated Diagnosis Comments XR FOOT LEFT 3 OR MORE VIEWS Routine 01/16/2013 12:00 AM CDT documented in this encounter Results * XR Foot Left 3 or More Views (01/16/2013 12:00 AM CDT) Anatomical Region Laterality Modality Lower Extremities, Foot Left [facility] 01/16/2013 Impressions 01/16/2013 7:33 PM CDT ??Normal plain film left foot THIS IS AN ELECTRONICALLY VERIFIED REPORT 01/16/2013 7:30 PM: ??Vince Grier M.D. Vince Grier M.D. RH: 07:30 PM 07:30 PM MON [EOD] Narrative 01/16/2013 7:33 PM CDT EXAMINATION: ??Plain film left foot HISTORY: ??Stubbed left fifth toe, pain TECHNIQUE: ??3 images of the left foot are submitted COMPARISON: ??None FINDINGS: ??No fracture, dislocation, or acute osseous abnormality appreciated Procedure Note Provider, MD John - 09/07/2020 EXAMINATION: Plain film left foot HISTORY: Stubbed left fifth toe, pain TECHNIQUE: 3 images of the left foot are submitted COMPARISON: None FINDINGS: No fracture, dislocation, or acute osseous abnormalityappreciated IMPRESSION: Normal plain film left foot THIS IS AN ELECTRONICALLY VERIFIED REPORT 01/16/2013 7:30 PM: Vince Grier M.D. Vince Grier M.D. RH: 07:30 PM 07:30 PM MON [EOD] [facility] IMG XR PROCEDURES Fin al Result documented in this encounter Visit Diagnoses Diagnosis Contusion of foot Striking against or struck accidentally by other stationary object without subsequent fall documented in this encounter
--- OUTSIDE RECORDS SUMMARY | 2024-04-29 19:26 | XMS_ITS | Encounter Summary ---
Author Organization [facility] Facility Care Team Providers Care Financial Brokers Name Role Phone Unavailable Primary Care Provider Unavailabl e Encounter Details Date Type Department Care Team (Latest Contact Info) Description 03/02/2010 6:14 PM FLOWER PLANTER - 03/03/2010 9:08 PM FLOWER PLANTER Hospital [facility] Oswaldo Sage, DO [address] [facility] [address] [place] [address] Abdominal pain, right upper quadrant; Acute gastritis; Degeneration of intervertebral disc Social History Tobacco Use Types Packs/Day Years Used Date Smoking Tobacco: Never Assessed Comments Unknown Sex and Gender Information Value Date Recorded Sex Assigned at Not on file Legal 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
--- OUTSIDE RECORDS SUMMARY | 2024-04-29 19:26 | XMS_ITS | Encounter Summary ---
Author Organization [facility] Facility Care Team Providers Care Director Talent Management Name Role Phone Unavailable Primary Care Provider Unavailabl e Encounter Details Date Type Department Care Team (Late st Contact Info) Description 02/23/2011 8:22 AM CDT - 02/23/2011 3:43 PM CDT Hospital Encounter [facility] Dakotah Malik MD [address] [facility] [phone] [place] [address] Disturbance of skin sensation; Dizziness and giddiness Social History Tobacco Use Types Packs/Day Years Used Date Smoking Tobacco: Never Assessed Comments Unknown Sex and Gender Information Value Date Recorded Sex Assigned at Not on file 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
--- OUTSIDE RECORDS SUMMARY | 2024-04-29 20:11 | XMS_ITS | Encounter Summary ---
Author Organization [facility] Address [address] [place] [address] Care Team Providers Care Social Services Manager Name Role Phone Minnie Jonathan Delaney RN Unavailable [phone] Feliciano Dash MD Primary Care Provider Encounter Details Date Type Department Care Team (Late st Contact Info) Description 03/13/2016 Orders Only [facility] - [address] [address] Armando Corona MD [address] [place] [phone] Social History Tobacco Use Types Packs/Day [...] Instructions* Rosalba Byrd - 03/13/2016 12:41 PM CAUSTIC PURIFICATION OPERATOR PREPARATION FOR UPPER ENDOSCOPY Please arrive at 7AM for your procedure which is scheduled at 8:30AM, on 04/06/16. Please report to: [facility]-Endoscopy Department Ground floor, East Entrance [address] [facility] [place] [address] NO FOOD OR DRINK AFTER MIDNIGHT BEFORE YOUR EXAM. MEDICATION INSTRUCTIONS: DISCUSS WELL IN ADVANCE OF YOUR PROCEDURE: If you are taking Persantine, Heparin, Coumadin (Warfarin) or Plavix as prescribed by your physician, please phone us at [phone] well in advance of your procedure. 3 [...] area with complimentary beverages available for your helper/driver during their wait period. The physician will discuss the findings with you and your family members following your procedure. Thank you for allowing us to participate in your care. Questions?? If so, please call us at If you have any questions regarding this procedure or preparation for it, please call our office at [phone] or [phone]. TIC PURIFICATION OPERATOR documented in this encounter Progress Notes * Rosalba Byrd - 03/13/2016 12:41 PM CST PATIENT WAS SCHEDULE IN THE OFFICE AND INSTRUCTIONS MAILED TO PT TIC PURIFICATION OPERATOR documented in this encounter Plan of Treatment Not on file documented as of this encounter Goals Goal Patient Goal Type Associated Problems Recent Progress Patient-Stated? Author Yearly PCP visit Lifestyle No Rukhsana Lazo, FRED documented as of this encounter Visit Diagnoses Not on filedocumented in this encounter Care Teams Social Services Manager Relationship Specialty Start Date End Date Feliciano Dash MD [address] [facility] [address] [facility] [address] [place] [id number] PCP - General Internal Medicine 12/15/15 06/11/21 Jonathan Hartman, RN Billing Services Manager 07/14/15 documented as of this encounter
--- OUTSIDE RECORDS SUMMARY | 2024-04-29 20:11 | XMS_ITS | Encounter Summary ---
Author Organization [facility] Address [address] [place] [address] Care Team Providers Care Limnology Teacher Name Role Phone Minnie Jonathan Delaney RN Unavailable [phone] Feliciano Dash MD Primary Care Provider [phone] Reason for Visit * Auth/Cert Specialty Diagnoses / Procedures Referred By Contmonserrat t Referred To Contact Diagnoses Abdominal pain, unspecified abdominal location Abdominal pain, unspecified abdominal location Procedures COLONOSCOPY SCREEN Referral ID Status Reason Start Date Expiration Date Visits Re quested Visits Authorized [id number] 1 1 Encounter Details Date Type Department Care Team (Late st Contact Info) Description 12/15/2015 12:27 PM CDT Anesthesia Event [facility] - Endoscopy Services [address] [place] [address] Eyad Ortiz MD [address] [place] [address] Kenan García, PRINTING BINDERY ASSISTANT-INSTRUMENT STERILIZER [address] [facility] [place] [address] Anesthesia Record Procedure Summary Procedure Name Responsible [...] by Barbi Khanna RN 12/15/15 1944 by [employer], Auto Release documented in this encounter Social [...] this encounter Progress Notes * Kenan García, RACQUEL-INSTRUMENT STERILIZER - 12/15/2015 12:46 PM CDT ANESTHESIA POSTPROCEDURE [...] this encounter Consult Notes * Kenan García, PRINTING BINDERY ASSISTANT-INSTRUMENT STERILIZER - 12/15/2015 12:24 PM CDT Pre-anesthesia Evaluation [...] 60 mg by mouth once daily ??? tchibhutyz-csroovucvfmbl-jhoijyrh (FIORICET) 50-325-40 MG tablet 1 Tab every [...] CDT documented in this encounter Care Teams Limnology Teacher Relationship Specialty Start Date End Date Feliciano Dash MD [address] [place] [address] [place] [address] PCP - General Internal Medicine 12/15/15 06/11/21 Jonathan Hartman RN Trucker 07/14/15 documented as of this encounter
--- OUTSIDE RECORDS SUMMARY | 2024-04-29 20:11 | XMS_ITS | Referral Summary ---
Author Organization [facility] [employer] Address [address] [facility] [place] [address] Care Team Providers Care Paint Roller Cover Machine Setter Name Role Phone Jonathan Hartman RN Unavailable [phone] Feliciano Dash MD Primary Care Provider [phone] Source Comments [facility],non-owned Affiliates and Associated Physician Practices is amultiple site organization consisting of ambulatory clinics and hospital sitesin [place], [place], [place] and [place]. This disclosure is being madepursuant to the Care Everywhere program and may not contain all information available regarding this patient. Last updated 18.[facility] Allergies Active Allergy Reactions Criticality Noted Date [...] transdermal route every 24 hours. Obtains from [employer] in [place]. 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 Obtains from [employer] in [place]. 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 [...] Ratio 2.6 <5.0 08/02/2015 10:49 AM CDT [facility] Blood BLOOD SPECIMEN / Unknown Lab Venipuncture / Unknown 08/02/2015 10:02 AM CDT 08/02/2015 10:13 AM CDT Chucho Hinton MD LAB - CHEMISTRY MORGAN Ar[facility] Organization Address City/State/ZIP Co de Phone Number [facility] [address] [place] [address] from Last 3 Months or Most Recently Relevant to Health Maintenance Advance Directives * Full Code (Latest Code Status on File) Date Activated Date Inactivated Comments 01/29/2017 7:53 PM 02/02/2017 1:02 PM * Full Code Date Activated Date Inactivated Comments 08/02/2015 1:57 AM 08/05/2015 3:00 PM * Full Code Date Activated Date Inactivated Comments 07/13/2015 10:36 PM 07/16/2015 3:55 PM Care Teams Paint Roller Cover Machine Setter Relationship Specialty Start Date End Date Feliciano Dash MD [address] [facility] [address] [place] [address] PCP - General 07/14/21 Jonathan Hartman, RN [employer] Stitcher 07/14/15
--- OUTSIDE RECORDS SUMMARY | 2024-04-29 20:11 | XMS_ITS | Encounter Summary ---
Author Organization [facility] Address [address] [place] [address] Care Team Providers Care Concrete Mixer Operator Helper Name Role Phone Minnie Jonathan Delaney RN Unavailable [phone] Feliciano Dash MD Primary Care Provider [phone] Reason for Visit * Reason Comments Establish Care ED 3 weeks ago Hiata l hernia, pain sternal area 1 yr Encounter Details Date Type Department Care Team (Late st Contact Info) Description 03/13/2016 11:20 AM HORSE GROOMER Office Visit [facility] - [address] [address] Armando Corona MD [address] [place] [phone] 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 syndrome with constipation (Primary [...] Comments Blood Pressure 116/82 03/13/2016 11:27 AM HORSE GROOMER Pulse - - Temperature - - Respiratory Rate - - Oxygen Saturation - - Inhaled Oxygen Concentration - - Weight 84.7 kg (186 lb 12.8 oz) 016 11:27 AM HORSE GROOMER Height 167.6 cm (5' 6 ) 03/13/2016 11:2 7 AM HORSE GROOMER Body Mass Index 30.15 03/13/2016 11:27 AM HORSE GROOMER documented in this encounter Functional Status Functional [...] Curtis Garland I - 03/13/2016 11:25 AM HORSE GROOMER During your visit, we noted a difference between the dose and/or dosing frequency of one of the following medication(s) documented in your record and the way you report that it is being taken. Pleasecontact the prescribing physician to verify the correct dose and instructions for the following: E GROOMER documented in this encounter Progress Notes * [...] spicy foods Gaining weight Came back from [facility] Medications: Current Outpatient Prescriptions Medication Sig Dispense [...] 60 mg by mouth once daily ??? dwdtafjwiz-yhfenjurmmxms-snqwddoe (FIORICET) 50-325-40 MG tablet 1 Tab every [...] results for input(s): AMYLASE in the last 22755 hours. Recent Labs Component Name 08/27/15 18108/01/15 [...] acute intra-abdominal pathology. CT A/P w/o at [facility] 10/2015 * bilateral nonobstructing renal stones * [...] you have further questions. Armando Corona MD [facility], Gastroenterology South Division [facility] office: [phone] Exchange: [phone] E GROOMER documented in this encounter Plan of Treatment Not on file documented as of this encounter Goals Goal Patient Goal Type Associated Problems Recent Progress Patient-Stated? Author Yearly PCP visit Lifestyle No Rukhsana Lazo MA documented as of this encounter Visit Diagnoses Diagnosis 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 syndrome with constipation- Primary 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 syndrome Epigastric pain Abdominal pain, epigastric documented in this encounter Care Teams Concrete Mixer Operator Helper Relationship Specialty Start Date End Date Feliciano Dash MD [address] [facility] [address] [place] [address] PCP - General Internal Medicine 12/15/15 06/11/21 Jonathan Hartman, RN Kitchen Runner 07/14/15 documented as of this encounter
--- OUTSIDE RECORDS SUMMARY | 2024-04-29 20:11 | XMS_ITS | Encounter Summary ---
Author Organization [facility] Address [address] [facility] [place] [address] Care Team Providers Care Copper Etcher Name Role Phone Minnie Jonathan Delaney RN Unavailable [phone] Feliciano Dash MD Primary Care Provider Reason for Visit * Reason Comments Follow-up f/u IBS no problems today Encounter Details Date Type Department Care Team (Late st Contact Info) Description 07/03/2016 10:40 AM CDT Office Visit [facility] Medical [facility] - [address] [address] Armando Corona MD [address] [place] [phone] Gastritis, presence of bleeding unspecified, unspecified [...] at all GERD - controlled with PRN [id number] and carafate Gaining weight Medications: Current Outpatient [...] 5 mg by mouth at bedtime ??? jqszyyzkyu-oojzsqmccnndm-pqpgfhsf (FIORICET) 50-325-40 MG tablet 1 Tab every [...] results for input(s): AMYLASE in the last 27346 hours. Recent Labs Component Name 08/27/15 1811 [...] acute intra-abdominal pathology. CT A/P w/o at [facility] 10/2015 * bilateral nonobstructing renal stones * [...] you have further questions. Armando Corona MD [facility], Gastroenterology South Division [facility] office: [phone] Exchange: [phone] documented in this encounter Plan of Treatment Not on file documented as of this encounter Goals Goal Patient Goal Type Associated Problems Recent Progress Patient-Stated? Author Yearly PCP visit Lifestyle No Rukhsana Lazo MA documented as of this encounter Visit Diagnoses Diagnosis Gastritis, presence of bleeding unspecified, unspecified chronicity, unspecified gastritis type- Primary documented in this encounter Care Teams Copper Etcher Relationship Specialty Start Date End Date Feliciano Dash MD [address] [facility] [address] [place] [address] PCP - General Internal Medicine 12/15/15 06/11/21 Jonathan Hartman, RN Jig Boring Machine Set Up Operator 07/14/15 documented as of this encounter
--- OUTSIDE RECORDS SUMMARY | 2024-04-29 20:11 | XMS_ITS | Encounter Summary ---
Author Organization [facility] Address [address] [facility] [place] [address] Care Team Providers Care Automatic Centrifugal Station Operator Name Role Phone Minnie Jonathan Delaney RN Unavailable [phone] Feliciano Dash MD Primary Care Provider [phone] Reason for Visit * Reason Comments Refill Request Encounter Details Date Type Department Care Team (Late st Contact Info) Description 12/21/2015 Refill [facility] - [address] [address] Armando Corona MD [address] [place] [phone] Refill Request Social History Tobacco Use [...] generalized documented in this encounter Care Teams Automatic Centrifugal Station Operator Relationship Specialty Start Date End Date Feliciano Dash MD [address] [facility] [address] [place] [address] PCP - General Internal Medicine 12/15/15 06/11/21 Jonathan Hartman RN Utility Agent 07/14/15 documented as of this encounter
--- OUTSIDE RECORDS SUMMARY | 2024-04-29 20:11 | XMS_ITS | Encounter Summary ---
Author Organization [facility] Address [address] [facility] [place] [address] Care Team Providers Care Lead C Developer Name Role Phone Minnie Jonathan Delaney RN Unavailable [phone] Feliciano Dash MD Primary Care Provider [phone] Reason for Visit * Reason Comments Refill Request Encounter Details Date Type Department Care Team (Late st Contact Info) Description 10/13/2017 Refill [facility] Medical [facility] - [address] [address] Armando Corona MD [address] [place] [phone] Refill Request Social History Tobacco Use [...] Primary documented in this encounter Care Teams Lead C Developer Relationship Specialty Start Date End Date Feliciano Dash MD [address] [facility] [address] [place] [address] PCP - General Internal Medicine 12/15/15 06/11/21 Jonathan Hartman, RN Pipe Connector 07/14/15 documented as of this encounter
--- OUTSIDE RECORDS SUMMARY | 2024-04-29 20:11 | XMS_ITS | Encounter Summary ---
Author Organization [facility] Address [address] [facility] [place] [address] Care Team Providers Care Foundry Finisher Name Role Phone Minnie Jonathan Delaney RN Unavailable [phone] Feliciano Dash MD Primary Care Provider [phone] Reason for Visit * Auth/Cert Specialty Diagnoses / Procedures Referred By Kaylynn phillips Referred To Contact Diagnoses Epigastric pain Epigastric pain Procedures ESOPHAGOGASTRODUODENOSCOPY (EGD) Referral ID Status Reason Start Date Expiration Date Visits Re quested Visits Authorized [id number] 1 1 Encounter Details Date Type Department Care Team (Latest Contact Info) Description 04/06/2016 7:25 AM [employer]ER [employer] BLOCKER [employer] - 04/06/2016 11:00 AM [facility] Hospital Encounter [facility] - Endoscopy Services [address] [place] [address] Armando Corona MD [address] [place] [phone] Surgery General Discharge Disposition: Home or [...] Comments Blood Pressure 118/84 04/06/2016 10:45 AM [employer] Pulse 100 04/06/2016 10:50 AM [employer] Temperature 36.1 ??C (97 ??F) 04/06/2016 10:30 AM [employer] Respiratory Rate 25 04/06/2016 10:50 AM [employer] Oxygen Saturation 100% 04/06/2016 10:50 AM [employer] Inhaled Oxygen Concentration - - Weight 81.6 kg (180 lb) 04/06/2016 9:12 AM [employer] Height 167.6 cm (5' 6 ) 04/06/2016 9:12 AM [employer] Body Mass Index 29.05 04/06/2016 9:12 AM [employer] documented in this encounter Functional Status Functional [...] 04/06/2016 11:00 AM CST Neg h pylori [employer] documented in this encounter H&P Notes * [...] MEDICAL PROBLEMS AND . Armando Corona MD [employer] documented in this encounter Procedure Notes * Armando Corona MD - 04/06/2016 9:53 AM CSTAssociated Order(s): EGD EGD Grade A esophagitis Mild gastritis s/p bx Nl duodenum [employer] documented in this encounter Plan of Treatment Not on file documented as of this encounter Goals Goal Patient Goal Type Associated Problems Recent Progress Patient-Stated? Author Yearly PCP visit Lifestyle No Rukhsana Lazo MA documented as of this encounter Procedures Procedure Name Priority Date/Time Associated Diagnosis Comments HELICOBACTER PYLORI UREASE (STL) STAT 04/06/2016 9:51 AM [employer] Epigastric pain ESOPHAGOGASTRODUODENOSCOPY ( EGD) BIOPSY 04/06/2016 9:30 AM [employer] Epigastric pain ESOPHAGOGASTRODUODENOSCOPY ( EGD) DIAGNOSTIC 04/06/2016 9:30 AM [employer] Epigastric pain EGD Routine 04/06/2016 9:19 AM [employer] HCG URINE QUALITATIVE - POIN T OF CARE Routine 04/06/2016 8:50 AM [employer] documented in this encounter Results * HELICOBACTER PYLORI UREASE (STL) (04/06/2016 9:51 AM [employer]) Helicobacter pylori Urease Initial Negative Negative 04/07/2016 11:49 AM PR[employer] AND BLOCKER [employer] [facility] Helicobacter pylori Urease Final Negative Negative 04/07/2016 11:49 AM PRESSER AND BLOCKER KNITTED [employer] [facility] Microbiology GASTRIC CONTENTS SPECIMEN / Unknown 04/06/2016 9:51 AM [employer] 04/06/2016 12:31 PM [employer] Armando Coroan MD LAB - MICROBIOLOGY O RDERABLES [facility] [address] [id number] * EGD (04/06/2016 9:19 AM [employer]) Report Endoscopy POC __ _ Patient Name: [...] Procedure Code(s): ? --- Professional --- ? 17662, Esophagogastroduode noscopy, flexible, transoral; with biopsy, ? single or multiple ? --- Technical --- ? 83637, Esophagogastroduode noscopy, flexible, transoral; with biopsy, ? single or multiple Diagnosis Code(s): ? --- Professional --- ? K20.9, Esophagitis, unspecified ? K29.70, Gastritis, unspecified, without bleeding ? R10.9, Unspecified abdominal pain ? --- Technical --- ? K20.9, Esophagitis, unspecified ? K29.70, Gastritis, unspecified, without bleeding ? R10.9, Unspecified abdominal pain CPT copyright 2015 [employer]. All rights reserved. The codes documented in this report are preliminary and upon child psychology teacher review may be revised to meet current compliance requirements. Armando Corona, 04/06/2016 9:52:47 AM This report has been signed electronically. Number of Addenda: 0 Note Initiated On: 04/06/2016 9:19 AM [facility] ENDOSCOPY 04/06/2016 9:19 AM [employer] Narrative Procedure Note Armando Corona MD - 04/06/2016 9:53 AM CST EGD Grade A esophagitis Mild gastritis s/p bx Nl duodenum Armando Corona MD GI PROCEDURE ORDERAB LES Performing Organization Address City/[facility] Co de Phone Number [facility] ENDOS[facility] * HCG URINE QUALITATIVE - POINT OF CARE (IP) (04/06/2016 8:50 AM [employer]) HCG Qual Urine Negative Negative [facility] POCT TESTING QC Verified Yes Yes [facility] POC T TESTING Urine URINE / Unknown 04/06/2016 8 :50 AM [employer] Armando Corona MD LAB - POINT OF CARE ORDERABLES Performing Organization Address City/[facility]/ZIP Co de Phone Number [facility] POCT TESTING [address] [phone] documented in this encounter Visit Diagnoses Diagnosis Epigastric pain Abdominal pain, epigastric documented in this encounter Administered Medications Inactive Administered Medications - up to 3 most recent administrations Medication Order MAR Action Action Date Dose Rate Site 0.9% NaCl infusion at 20 mL/hr, Intravenous, CONTINUOUS, Starting on Sat04/06/16 at 0945, Until Sat04/06/16 at 1213, Pre-procedure (GI) $ New Bag/Syringe 04/06/2016 9:18 AM [employer] 2 0 mL/hr documented in this encounter Active and Recently Administered Medications Times are shown in [employer]ER [employer]. Continuous Medication Order 04/04/2016 04/05/2016 04/06/2016 0.9% NaCl infusion at 20 mL/hr, Intravenous, CONTINUOUS, Starting on Sat04/06/16 at 0945, Until Sat04/06/16 at 1213, Pre-procedure (GI) 0918 ($ New Bag/Syri nge - Provider: Cheli Chun, ANTHONY)0947 (Anesthesia Volume Adjustment - Provider: Helen Adair APRN-BAGGAGE PORTER) documented in this encounter Care Teams Foundry Finisher Relationship Specialty Start Date End Date Feliciano Dash MD [address] [facility] [address] [place] [phone] PCP - General Internal Medicine 12/15/15 06/11/21 Jonathan Hartman RN Job Recruiter 07/14/15 documented as of this encounter
--- OUTSIDE RECORDS SUMMARY | 2024-04-29 20:11 | XMS_ITS | Encounter Summary ---
Author Organization [facility] Address [address] [facility] [place] [address] Care Team Providers Care Electric Hoist Operator Name Role Phone Minnie Jonathan Delaney RN Unavailable [phone] Feliciano Dash MD Primary Care Provider [phone] Reason for Visit * Reason Comments Refill Request Encounter Details Date Type Department Care Team (Late st Contact Info) Description 04/05/2017 Refill [facility] Medical [facility] - [address] [address] Preston Mixon MD [address] [place] [address] Refill Request Social History Tobacco Use [...] Sanjeev Zeng MA - 04/08/2017 8:51 AM BURLAP WORKER Refill request for zantac sent to Md to approve. CB AP WORKER documented in this encounter Plan of Treatment Not on file documented as of this encounter Goals Goal Patient Goal Type Associated Problems Recent Progress Patient-Stated? Author Yearly PCP visit Lifestyle No Rukhsana Lazo MA documented as of this encounter Visit Diagnoses Not on filedocumented in this encounter Care Teams Electric Hoist Operator Relationship Specialty Start Date End Date Feliciano Dash MD [address] [facility] [address] [place] [address] PCP - General Internal Medicine 12/15/15 06/11/21 Jonathan Hartman, RN Airframe Technician 07/14/15 documented as of this encounter
--- OUTSIDE RECORDS SUMMARY | 2024-04-29 20:11 | XMS_ITS | Encounter Summary ---
Author Organization [facility] Address [address] [facility] [place] [address] Care Team Providers Care Network Security Consultant Name Role Phone Minnie Jonathan Delaney RN Unavailable Feliciano Dash MD Primary Care Provider [phone] Reason for Visit * Reason Comments Refill Request Encounter Details Date Type Department Care Team (Late st Contact Info) Description 11/05/2018 Refill [facility] - [address] [address] Armando Corona MD [address] [place] [phone] Refill Request Social History Tobacco Use [...] on filedocumented in this encounter Care Teams Network Security Consultant Relationship Specialty Start Date End Date Feliciano Dash MD [address] [facility] [address] [place] [address] PCP - General Internal Medicine 12/15/15 06/11/21 Jonathan Hartman, RN Spooling Supervisor 07/14/15 documented as of this encounter
--- OUTSIDE RECORDS SUMMARY | 2024-04-29 20:11 | XMS_ITS | Encounter Summary ---
Author Organization [facility] Address [address] [facility] [place] [address] Care Team Providers Care Saddle Stitching Machine Operator Name Role Phone MinnieJonathan mckeon RN Unavailable [phone] Feliciano Dash MD Primary Care Provider [phone] Encounter Details Date Type Department Care Team (Late st Contact Info) Description 04/25/2016 Orders Only [facility] Group - [address] [address] Armando Corona MD [address] [place] [phone] Gastritis, presence of bleeding unspecified, unspecified [...] is requesting Carafate. Will ask Dr. Corona INE INSTALLER documented in this encounter Plan of Treatment Not on file documented as of this encounter Goals Goal Patient Goal Type Associated Problems Recent Progress Patient-Stated? Author Yearly PCP visit Lifestyle No Rukhsana Lazo MA documented as of this encounter Visit Diagnoses Diagnosis Gastritis, presence of bleeding unspecified, unspecified chronicity, unspecified gastritis type- Primary documented in this encounter Care Teams Saddle Stitching Machine Operator Relationship Specialty Start Date End Date Feliciano Dash MD [address] [place] [address] [place] [address] PCP - General Internal Medicine 12/15/15 06/11/21 Jonathan Hartman, RN Mental Health Program Manager 07/14/15 documented as of this encounter
--- OUTSIDE RECORDS SUMMARY | 2024-04-29 20:11 | XMS_ITS | Encounter Summary ---
Author Organization [facility] Address [address] [facility] [place] [address] Care Team Providers Care Rough Planer Tender Name Role Phone MinnieJonathan mckeon RN Unavailable [phone] Feliciano Dash MD Primary Care Provider [phone] Encounter Details Date Type Department Care Team (Late st Contact Info) Description 04/06/2016 Orders Only [facility] - [address] [address] Armando Corona MD [address] [place] [phone] Social History Tobacco Use Types Packs/Day [...] on filedocumented in this encounter Care Teams Rough Planer Tender Relationship Specialty Start Date End Date Feliciano Dash MD [address] [facility] [address] [place] [address] PCP - General Internal Medicine 12/15/15 06/11/21 Jonathan Hartman, RN Sap Specialist 07/14/15 documented as of this encounter
--- OUTSIDE RECORDS SUMMARY | 2024-04-29 20:11 | XMS_ITS | Encounter Summary ---
Author Organization [facility] Address [address] [place] [address] Care Team Providers Care Stereo Compiler Name Role Phone Minnie Jonathan Delaney RN Unavailable [phone] Feliciano Dash MD Primary Care Provider [phone] Reason for Visit * Auth/Cert Specialty Diagnoses / Procedures Referred By Kaylynn phillips Referred To Contact Diagnoses Epigastric pain Epigastric pain Procedures ESOPHAGOGASTRODUODENOSCOPY (EGD) Referral ID Status Reason Start Date Expiration Date Visits Re quested Visits Authorized [id number] 1 1 Encounter Details Date Type Department Care Team (Late st Contact Info) Description 04/06/2016 9:30 AM METAL POLISHER AND BUFFER APPRENTICE Anesthesia Event [facility] [address] [place] [address] Eyad Ortiz MD [address] [place] [address] Anesthesia Record Procedure Summary Procedure Name Responsible [...] this encounter Progress Notes * Helen Adair, TITLE I PARAPROFESSIONAL-MEDICAL DATA ENTRY CLERK - 04/06/2016 9:57 AM CST ANESTHESIA POSTPROCEDURE [...] filed. ASA/AQI Tracking Events: No value filed. L POLISHER AND BUFFER APPRENTICE documented in this encounter Consult Notes * Helen AdairRENEN-MEDICAL DATA ENTRY CLERK - 04/06/2016 9:19 AM CST Pre-anesthesia Evaluation [...] BEFORE BREAKFAST ANDDINNER 60 Tab 3 ??? picdtmaowm-sioqifkjvrqhy-phwbhodl (FIORICET) 50-325-40 MG tablet 1 Tab every [...] Labs Component Name 04/06/16 0850 HCGURINE Negative L POLISHER AND BUFFER APPRENTICE documented in this encounter Plan of Treatment [...] Anesthesia Intra-op $ Given 04/06/2016 9:42 AM METAL POLISHER AND BUFFER APPRENTICE 50 mcg lidocaine (XYLOCAINE) 2 % injection PRN, Starting on Sat04/06/16 at 0942, Until Sat04/06/16 at 0948, Anesthesia Intra-op $ Given 04/06/2016 9:42 AM METAL POLISHER AND BUFFER APPRENTICE 50 mg propofol (DIPRIVAN) injection CONTINUOUS PRN, Starting on Sat04/06/16 at 0942, Until Sat04/06/16 at 0948, Anesthesia Intra-op $ New Bag/Syringe 04/06/2016 9:42 AM METAL POLISHER AND BUFFER APPRENTICE documented in this encounter Care Teams Stereo Compiler Relationship Specialty Start Date End Date Feliciano Dash MD [address] [facility] [address] [facility] [address] [place] [id number] PCP - General Internal Medicine 12/15/15 06/11/21 Jonathan Hartman RN Ocean Export Agent 07/14/15 documented as of this encounter
--- OUTSIDE RECORDS SUMMARY | 2024-04-29 20:11 | XMS_ITS | Encounter Summary ---
Author Organization [facility] Address [address] [place] [address] Care Team Providers Care Clinical Social Work Therapist Name Role Phone Minnie Jonathan Delaney RN Unavailable [phone] Feliciano Dash MD Primary Care Provider [phone] Reason for Visit * Reason Comments Refill Request Encounter Details Date Type Department Care Team (Late st Contact Info) Description 08/23/2017 Refill [facility] Medical [facility] - [address] [address] Preston Mixon MD [address] [place] [id number] Refill Request Social History Tobacco Use [...] Primary documented in this encounter Care Teams Clinical Social Work Therapist Relationship Specialty Start Date End Date Feliciano Dash MD [address] [facility] [address] [place] [id number] PCP - General Internal Medicine 12/15/15 06/11/21 Jonathan Hartman, RN Belt Splicer 07/14/15 documented as of this encounter
--- OUTSIDE RECORDS SUMMARY | 2024-04-29 20:11 | XMS_ITS | Clinical Summary ---
Author Organization [facility] Address [address] [place] [address] Care Team Providers Care Pilot Control Operator Helper Name Role Phone Jonathan Hartman RN Unavailable Feliciano Dash MD Primary Care Provider [phone] Source Comments [facility],non-owned Affiliates and Associated Physician Practices is amultiple site organization consisting of ambulatory clinics and hospital sitesin [place], [place], [place] and [place]. This disclosure is being madepursuant to the Care Everywhere program and may not contain all information available regarding this patient. Last updated 18.[facility] Allergies Active Allergy Reactions Criticality Noted [...] transdermal route every 24 hours. Obtains from [facility] in [place]. 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 Obtains from [facility] in [place]. 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 [...] 184 <200 mg/dL 08/02/2015 10:49 AM CDT [facility] Triglycerides 156(H) <150 mg/dL 08/02/2015 10:49 AM CDT [facility] HDL Cholesterol 43 >40 mg/dL 08/02/2015 10:49 AM CDT [facility] LDL Calculated 110 <130 mg/dL 08/02/2015 10:49 AM CDT [facility] VLDL Calculated 31(H) <=30 mg/dL 08/02/2015 10:49 AM CDT [facility] Chol HDL Ratio 4.3 <4.5 08/02/2015 10:49 AM CDT [facility] LDL/HDL Ratio 2.6 <5.0 08/02/2015 10:49 AM CDT [facility] Blood BLOOD SPECIMEN / Unknown Lab Venipuncture / Unknown 08/02/2015 10:02 AM CDT 08/02/2015 10:13 AM CDT Chucho Hinton MD LAB - CHEMISTRY [place] [facility] Organization Address City/State/[facility] Co de Phone Number [facility] [address] [place] [address] from Last 3 Months or Most Recently Relevant to Health Maintenance Advance Directives * Full Code (Latest Code Status on File) Date Activated Date Inactivated Comments 01/29/2017 7:53 PM 02/02/2017 1:02 PM * Full Code Date Activated Date Inactivated Comments 08/02/2015 1:57 AM 08/05/2015 3:00 PM * Full Code Date Activated Date Inactivated Comments 07/13/2015 10:36 PM 07/16/2015 3:55 PM Care Teams Pilot Control Operator Helper Relationship Specialty Start Date End Date Feliciano Dash MD [address] [place] [address] PCP - General 07/14/21 Jonathan Hartman RN Chip Machine Operator 07/14/15
--- OUTSIDE RECORDS SUMMARY | 2024-04-29 20:11 | XMS_ITS | Patient Health Summary ---
Author Organization [facility] Address [address] [place] [address] Care Team Providers Care Saw Superintendent Name Role Phone Jonathan Hartman RN Unavailable [phone] Feliciano Dash MD Primary Care Provider [phone] [facility],non-owned Affiliates and Associated Physician Practices is amultiple site organization consisting of ambulatory clinics and hospital sitesin [place], [place], [place] and [place]. This disclosure is being madepursuant to the Care Everywhere program and may not contain all information available regarding this patient. Last updated 18.[facility] Allergies * Ibuprofen(Other) -Medium Criticality Medications [...] transdermal route every 24 hours. Obtains from [facility] in [place]. Reasons: Rhemuatoid arthiritis and Meredith-Danlos syndrome * Other CDB-THC (1:1 ratio) 10 mg capsule by mouth daily. Obtains from [facility] in [place]. Reasons: Rheumatoid arthritis and Meredith-Danlos syndrome * [...] 07/15/2015) Performed for Intractable abdominal pain * MPO/OK 3 AUTOANTIBODIES PANEL(Performed 07/15/2015) Performed for Diverticulitis [...] - 10.7 x10E9/L 02/01/2017 4:35 AM CDT [facility] WBC Corrected x10E9/L 02/01/2017 4:35 AM CDT [facility] RBC 3.88 3.80 - 5.20 x10E12/L 02/01/2017 4:35 AM CDT [facility] Hemoglobin 11.3(L) 12.0 - 15.6 gm/dL 02/01/2017 4:35 AM CDT [facility] Hematocrit 35.1(L) 35.9 - 45.5 % 02/01/2017 4:35 AM CDT [facility] MCV 90.5 80.7 - 98.3 fl 02/01/2017 4:35 AM CDT [facility] MCH 29.1 26.7 - 34.0 pg 02/01/2017 4:35 AM CDT [facility] MCHC 32.2 30.8 - 35.9 gm/dL 02/01/2017 4:35 AM CDT [facility] Platelet Count 313 153 - 416 x10E9/L 02/01/2017 4:35 AM CDT [facility] RDW-CV 13.4 12.1 - 14.9 % 02/01/2017 4:35 AM CDT [facility] MPV 8.7(L) 9.4 - 12.9 fl 02/01/2017 4:35 AM CDT [facility] Neutrophils % 55.7 44.0 - 73.0 % 02/01/2017 4:35 AM CDT [facility] Lymphocytes % 30.7 20.0 - 43.0 % 02/01/2017 4:35 AM CDT [facility] Monocytes % 6.0 5.0 - 13.0 % 02/01/2017 4:35 AM CDT [facility] Eosinophils % 3.5 0.0 - 6.0 % 02/01/2017 4:35 AM CDT [facility] Basophils % 1.0 0.0 - 2.0 % 02/01/2017 4:35 AM CDT [facility] Immature Granulocytes 3.1(H) 0 - 1 % 02/01/2017 4:35 AM CDT [facility] Neutrophil Absolute 3.99 2.01 - 7.14 x10E9/L 02/01/2017 4:35 AM CDT [facility] Lymphocytes Absolute 2.20 1.07 - 3.94 x10E9/L 02/01/2017 4:35 AM CDT [facility] Monocytes Absolute 0.43 0.26 - 1.07 x10E9/L 02/01/2017 4:35 AM CDT [facility] Eosinophils Absolute 0.25 0 - 0.47 x10E9/L 02/01/2017 4:35 AM CDT [facility] Basophils Absolute 0.07 0 - 0.08 x10E9/L 02/01/2017 4:35 AM CDT [facility] Immature Granulocytes Absolute 0.22(H) 0.00 - 0.06 x10E9/L 02/01/2017 4:35 AM CDT [facility] nRBC Auto 0 /100 WBC 02/01/2017 4:35 AM CDT [facility] Blood BLOOD SPECIMEN / Unknown Lab Venipuncture / Unknown 02/01/2017 3:29 AM CDT 02/01/2017 4:22 AM CDT Kristi Shah MD LAB - HEMATOLOGY ORD ERABLES [facility] [address] [place] [address] * (ABNORMAL) BASIC METABOLIC PANEL (CALCIUM TOTAL) (02/01/2017 3:29 AM CDT) Only the most recent of4 resultswithin the time period is included. [facility] Signature Glucose 81 74 - 106 mg/dL 02/01/2017 4:48 AM CDT [facility] Sodium 139 136 - 145 mmol/L 02/01/2017 4:48 AM CDT [facility] Potassium 3.5 3.5 - 5.1 mmol/L 02/01/2017 4:48 AM CDT [facility] Chloride 112(H) 98 - 107 mmol/L 02/01/2017 4:48 AM CDT [facility] CO2 19(L) 22 - 31 mmol/L 02/01/2017 4:48 AM CDT [facility] Calcium 8.3(L) 8.5 - 10.1 mg/dL 02/01/2017 4:48 AM CDT [facility] Anion Gap 8 8 - 16 mmol/L 02/01/2017 4:48 AM CDT [facility] BUN 8 7 - 21 mg/dL 02/01/2017 4:48 AM CDT [facility] Creatinine 0.76 0.50 - 1.30 mg/dL 02/01/2017 4:48 AM CDT [facility] eGFR by MDRD >60 >60 mL/min/1.7 3m2 02/01/2017 4:48 AM CDT [facility] eGFR by MDRD >60 >60 mL/min/1.7 3m2 02/01/2017 4:48 AM CDT [facility] Blood BLOOD SPECIMEN / Unknown Lab Venipuncture / Unknown 02/01/2017 3:29 AM CDT 02/01/2017 4:22 AM CDT Kristi Shah MD LAB - CHEMISTRY MORGAN YEE [facility] [address] [place] [address] * MYCOPLASMA PNEUMO ANTIBODY IGG/IGM PANEL (01/30/2017 2:42 AM CDT) Mycoplasma pneumoniae Antibody IgG <100 0 - 99 U/mL 01/31/2017 4:21 PM CDT [facility] ([facility]) Comment: ? Negative: ? <100 ? [...] 769 U/mL 01/31/2017 4:21 PM CDT [facility] ([facility]) Comment: ? Negative ?<770 Clinically significant [...] 2:42 AM CDT 01/30/2017 3:08 AM CDT [facility] ([facility]) - 01/31/2017 4:21 PM CDT Performed at: ??01 - [address] ??[id number] Master Brewer: Mahendra Trevino PhD, Phone: ??[phone] Akira Romero MD LAB - SEROLOGY ORDER BOB [facility] ([facility]) [address] [place] [address] * (ABNORMAL) CHLAMYDIA ANTIBODY IGG/IGM PANEL (01/30/2017 2:42 AM CDT) Chlamydia psittaci Antibody IgM <1:10 Neg:<1:10 02/01/2017 5:10 PM CDT [facility] ([facility]) Comment: This test was developed and its performance characteristics determined by [facility]. ??It has not been cleared or approved by the Food and Drug Administration. ??The FDA has determined that such clearance or approval is not necessary. Chlamydia psittaci Antibody IgG <1:16 Neg:<1:16 02/01/2017 5:10 PM [facility]) Comment: This test was developed and its performance characteristics determined by [facility]. ??It has not been cleared or approved by the Food and Drug Administration. ??The FDA has determined that such clearance or approval is not necessary. Chlamydia pneumoniae Antibody IgM <1:16 Neg:<1:16 02/01/2017 5:10 PM CDT [facility] ([facility]) Test Information Comment 02/02/20 17 5:10 PM CDT [facility] ([facility]) Comment: This test was developed and [...] <1:10 Neg:<1:10 02/01/2017 5:10 PM CDT [facility] ([facility]) Chlamydia trachomatis Antibody IgM <0.8 0.0 - 0.7 index 02/01/2017 5:10 PM CDT [facility] ([facility]) Comment: ?Negative ? <0.8 ?Borderline ?0.8 - 1.0 ?Positive ? >1.0 Results for this test are for research purposes only by the assay's professor of genetics. ??The performance characteristics of this product have not been established. ??Results should not be used as a diagnostic procedure without confirmation of the diagnosis by another medically established diagnostic product or procedure. Chlamydia Antibody IgG 1.18(H) 0.00 - 0.90 ratio 02/01/2017 5:10 PM CDT [facility] ([facility]) Comment: ?Negative ? <0.91 ?Equivocal ??0.91 - 1.09 ?Positive ? >1.09 Blood BLOOD SPECIMEN / Unknown Lab Venipuncture / Unknown 01/30/2017 2:42 AM CDT 01/30/2017 3:08 AM CDT Narrative [facility] ([facility]) - 02/01/2017 5:10 PM CDT Performed at: ??01 - [facility] ??[id number] Master Brewer: Curtis Sanchez MD, Phone: ??[phone] Akira Romero MD LAB - CHEMISTRY ORDE RABLES Performing Organization Address [facility] de Phone Number [facility] ([facility]) [address] [place] [address] * HISTOPLASMA GALACTOMANNAN AG URINE (01/29/2017 10:37 PM CDT) Histoplasma galactomannan Antigen Urine <0.5 <0.5 ng/mL 02/01/2017 3:19 PM CDT [facility] ([facility]) Disclaimer Comment 02/01/2017 3:19 PM CDT [facility] ([facility]) Comment: This test was developed and its performance characteristics determined by [facility]. It has not been cleared or approved by the Food and Drug Administration. Urine URINE / Unknown Collection / Unknown 01/29/2017 10:37 PM CDT 01/29/2017 10:43 PM CDT Narrative [facility] ([facility]) - 02/01/2017 3:19 PM CDT Performed at: ??01 - [address] ??[id number] Master Brewer: Curtis Sanchez MD, Phone: ??[phone] Akira Romero MD LAB - URINE CHEMISTR Y ORDERABLES Performing Organization Address [facility] Co de Phone Number [facility]) [address] [place] [address] * RESPIRATORY PATHOGEN PANEL BY PCR (01/29/2017 10:36 PM CDT) Adenovirus PCR Not detected Not detected, Invalid, Indeterminate 01/30/2017 5:53 AM CDT [facility] Human Metapneumovirus PCR Not detected Not detected, Invalid, Indeterminate 01/30/2017 5:53 AM CDT [facility] Human Rhinovirus/Entero virus PCR Not detected Not detected, Invalid, Indeterminate 01/30/2017 5:53 AM CDT [facility] Influenza A Non Subtyped PCR Not detected Not detected, Invalid, Indeterminate 01/30/2017 5:53 AM CDT [facility] Influenza A H1 PCR Not detected Not detected, Invalid, Indeterminate 01/30/2017 5:53 AM CDT [facility] Influenza A H3 PCR Not detected Not detected, Invalid, Indeterminate 01/30/2017 5:53 AM CDT [facility] Influenza A H1 2009 PCR Not detected Not detected, Invalid, Indeterminate 01/30/2017 5:53 AM CDT [facility] Influenza B PCR Not detected Not detected, Invalid, Indeterminate 01/30/2017 5:53 AM CDT [facility] Mycoplasma pneumoniae PCR Not detected Not detected, Invalid, Indeterminate 01/30/2017 5:53 AM CDT [facility] Parainfluenza Virus 1 PCR Not detected Not detected, Invalid, Indeterminate 01/30/2017 5:53 AM CDT [facility] Parainfluenza Virus 2 PCR Not detected Not detected, Invalid, Indeterminate 01/30/2017 5:53 AM CDT [facility] Parainfluenza Virus 3 PCR Not detected Not detected, Invalid, Indeterminate 01/30/2017 5:53 AM CDT [facility] Parainfluenza Virus 4 PCR Not detected Not detected, Invalid, Indeterminate 01/30/2017 5:53 AM CDT [facility] Respiratory Syncytial Virus PCR Not detected Not detected, Invalid, Indeterminate 01/30/2017 5:53 AM CDT [facility] Bordetella pertussis PCR Not detected Not detected, Invalid 01/30/2017 5:53 AM CDT [facility] Coronavirus PCR Not detected Not detected, Invalid, Indeterminate 01/30/2017 5:53 AM CDT [facility] Microbiology NASOPHARYNGEAL SWAB / Unknown Collection / Unknown 01/29/2017 10:36 PM CDT 01/29/2017 10:42 PM CDT Narrative [facility] - 01/30/2017 5:53 AM CDT Coronavirus PCR detects the following coronaviruses: 229E, HKU1, NL63, OC43. Akira Romero MD LAB - MICROBIOLOGY O ASHLEIGH Performing Organization Address [facility] Co de Phone Number [facility] [address] [place] [address], [facility] [phone] * CULTURE BLOOD (01/29/2017 6:59 PM CDT) Only the most recent of2 resultswithin the time period is included. Culture No growth day 5 CARLOS EDUARDO 02/04/2017 12:[address] [facility] Blood PERIPHERAL BLOOD / Unknown Venipuncture / Unknown 01/29/2017 6:59 PM CDT 01/29/2017 7:03 PM CDT Clinton Dorman DO LAB - MICROBIOLOGY O ASHLEIGH Performing Organization Address [facility] de Phone Number [facility] [address] [place] [address], [facility] [phone] * CT CHEST PE (01/29/2017 5:23 PM [...] the time period is included. Pathologist [facility] HCG Qual Urine Negative Negative [facility] POCT TESTING QC Verified Yes Yes [facility] POC T TESTING Urine URINE / Unknown 01/29/2017 4 :45 PM CDT Clinton Dorman DO LAB - POINT OF CARE ORDERABLES [facility] POCT TESTING [address] [place] [address] * (ABNORMAL) D-DIMER (01/29/2017 3:57 PM CDT) Pathologist [facility] D-Dimer 0.71(H) 0.17 - 0.5 mg/L FEU 01/29/2017 4:14 PM CDT [facility] Blood BLOOD SPECIMEN / Unknown Venipuncture / Unknown 01/29/2017 3:57 PM CDT 01/29/2017 3:59 PM CDT Narrative [facility] - 01/29/2017 4:14 PM CDT [...] - COAGULATION OR DERABLES Performing Organization Address City/State/[facility] Co de Phone Number [facility] [address] [place] [address] * INFLUENZA A+B ANTIGEN RAPID (01/29/2017 1:38 PM CDT) [facility] Influenza A Antigen Negative Negative 01/29/2017 1:55 PM CDT [facility] Influenza B Antigen Negative Negative 01/29/2017 1:55 PM CDT [facility] Microbiology NASOPHARYNGEAL SWAB / Unknown Collection / Unknown 01/29/2017 1:38 PM CDT 01/29/2017 1:43 PM CDT Narrative [facility] - 01/29/2017 1:55 PM CDT [...] - MICROBIOLOGY O RDERABLES Performing Organization Address [facility] Co de Phone Number [facility] [address] [place] [address] * EKG 12-LEAD (01/29/2017 12:20 PM CDT) Only the most recent of2 resultswithin the time period is included. [facility] Ventricular Rate 100 BPM [facility] MUSE Atrial Rate 100 BPM [facility] MUSE P-R Interval 84 ms [facility] MUSE QRS Duration ms 102 ms [facility] MUSE Q-T Interval ms 366 ms [facility] MUSE QTC Calculation (Bezet) 472 ms [facility] MUSE Calculated P [place] 26 degrees [facility] MUSE Calculated R [place] 48 degrees [facility] MUSE Calculated T [place] 33 degrees [facility]USE Interpretation EKG SINUS RHYTHM WITH SHORT OK NONSPECIFIC ST ABNORMALITY ABNORMAL ECG Confirmed by MD Lisandra, Toi ([id number]) on 01/30/2017 7:55:22 AM [facility] MUSE 01/29/2017 12:2 0 PM CDT 01/30/2017 7:55 AM CDT Clinton Dorman DO ECG ORDERABLES Performing Organization Address [facility] de Phone Number [facility] MUSE * (ABNORMAL) COMPREHENSIVE METABOLIC PANEL (01/29/2017 12:14 PM CDT) Only the most recent of6 resultswithin the time period is included. [facility] Glucose 97 74 - 106 mg/dL 01/29/2017 12:44 PM CDT [facility] Sodium 137 136 - 145 mmol/L 01/29/2017 12:44 PM CDT [facility] Potassium 3.6 3.5 - 5.1 mmol/L 01/29/2017 12:44 PM CDT [facility] Chloride 108(H) 98 - 107 mmol/L 01/29/2017 12:44 PM CDT [facility] CO2 18(L) 22 - 31 mmol/L 01/29/2017 12:44 PM CDT [facility] Calcium 8.7 8.5 - 10.1 mg/dL 01/29/2017 12:44 PM CDT [facility] Anion Gap 11 8 - 16 mmol/L 01/29/2017 12:44 PM CDT [facility] BUN 13 7 - 21 mg/dL 01/29/2017 12:44 PM CDT [facility] Creatinine 0.93 0.50 - 1.30 mg/dL 01/29/2017 12:44 PM CDT [facility] Alkaline Phosphatase 70 38 - 126 U/L 01/29/2017 12:44 PM CDT [facility] ALT 21 13 - 61 U/L 01/29/2017 12:44 PM CDT [facility] AST 17 5 - 40 U/L 01/29/2017 12:44 PM CDT [facility] Protein Total 7.6 6.4 - 8.2 gm/dL 01/29/2017 12:44 PM CDT [facility] Albumin 3.3(L) 3.4 - 5.0 gm/dL 01/29/2017 12:44 PM CDT [facility] Bilirubin Total 0.5 0.2 - 1.0 mg/dL 01/29/2017 12:44 PM CDT [facility] eGFR by MDRD >60 >60 mL/min/1.7 3m2 01/29/2017 12:44 PM CDT [facility] eGFR by MDRD >60 >60 mL/min/1.7 3m2 01/29/2017 12:44 PM CDT [facility] Blood BLOOD SPECIMEN / Unknown Venipuncture / Unknown 01/29/2017 12:14 PM CDT 01/29/2017 12:27 PM CDT Clinton Dorman DO LAB - CHEMISTRY MORGAN YEE [facility] Organization Address City/State/ZIP Co de Phone Number [facility] [address] [place] [address] * LACTIC ACID BLOOD (01/29/2017 12:14 PM CDT) Only the most recent of2 resultswithin the time period is included. Lactic Acid 1.7 0.7 - 2.1 mmol/L 01/29/2017 12:44 PM CDT [facility] Blood BLOOD SPECIMEN / Unknown Venipuncture / Unknown 01/29/2017 12:14 PM CDT 01/29/2017 12:27 PM CDT Clinton Dorman DO LAB - CHEMISTRY MORGAN YEE [facility] [address] [place] [address] * CT RENAL STONE PROTOCOL (NO IV AND NO ORAL CONTRAST) (05/17/2016 1:00 PM PAYMENT COLLECTOR) Anatomical Region Laterality Modality Abdomen, Pelvis Computed Tomogra phy 05/17/2016 1:14 PM PAYMENT COLLECTOR Impressions 05/17/2016 1:19 PM PAYMENT COLLECTOR 1. Multiple bilateral renal calculi seen within the kidneys without evidence of hydronephrosis or hydroureter. The largest calculus on the right measures approximately 4 mm and the largest on the left approximately 5 mm. Narrative 05/17/2016 1:[address] abdomen and pelvis without contrast Technique: [...] ROUTINE W/REFLEX TO CULTURE (05/17/2016 12:49 PM PAYMENT COLLECTOR) Only the most recent of5 resultswithin the time period is included. Color UA Yellow Straw, Yellow, Dark Yellow 05/17/2016 1:08 PM PAYMENT COLLECTOR [facility] Clarity UA Clear 05/17/2016 1:08 PM PAYMENT COLLECTOR [facility] Specific [place] UA 1.020 1.005 - 1.030 05/17/2016 1:08 PM PAYMENT COLLECTOR [facility] pH UA 6.5 5.0 - 8.0 pH 05/17/2016 1:[address] [facility] Protein UA Negative Negative 05/17/2016 1:08 PM PAYMENT COLLECTOR [facility] Blood UA Negative Negative 05/17/2016 1:[address] [facility] Leukocyte UA 2+(A) Negative 05/17/2016 1:[address] [facility] Nitrite UA Negative Negative 05/17/2016 1:08 PM PAYMENT COLLECTOR [facility] Glucose UA Negative Negative 05/17/2016 1:[address] [facility] Ketone UA Negative Negative 05/17/2016 1:[address] [facility] Bilirubin UA Negative Negative 05/17/2016 1:[address] [facility] Urobilinogen UA 0.2 0.1 - 1.0 EU/dL 05/17/2016 1:[address] [facility] WBC UA Auto 5-10(A) 0-2, 2-5 # /hpf 05/17/2016 1:[address] [facility] RBC UA Auto 2-5 0-2, 2-5 # /hpf 05/17/2016 1:[address] [facility] Epithelial Cell UA Auto 5-10(A) 0-2, 2-5 # /hpf 05/17/2016 1:[address] [facility] Bacteria UA Auto 1+(A) None seen 05/17/19 17 1:[address] [facility] Reflex Status Culture to follow 05/17/2016 1:[address] [facility] Urine URINE SPECIMEN OBTAINED BY CLEAN CATCH PROCEDURE / Unknown Collection / Unknown 05/17/2016 12:49 PM PAYMENT COLLECTOR 05/17/2016 12:56 PM PAYMENT COLLECTOR Eleno Mcclure DO LAB - URINALYSIS ORD ERABLES [facility] [address] [place] [address] * CULTURE URINE (05/17/2016 12:49 PM PAYMENT COLLECTOR) Only the most recent of5 resultswithin the time period is included. Culture 10,000-50,000 CFU/mL urogenital adelso CARLOS EDUARDO 05/18/2016 3:24 PM PAYMENT COLLECTOR [facility] Urine URINE SPECIMEN OBTAINED BY CLEAN CATCH PROCEDURE / Unknown Collection / Unknown 05/17/2016 12:49 PM PAYMENT COLLECTOR 05/17/2016 12:56 PM PAYMENT COLLECTOR Eleno Mcclure DO LAB - MICROBIOLOGY O [place]SHLEIGH Performing Organization Address City/[facility]/ZIP Co de Phone Number [facility] [address] [place] [phone] * HELICOBACTER PYLORI UREASE (STL) (04/06/2016 9:51 AM PAYMENT COLLECTOR) Helicobacter pylori Urease Initial Negative Negative 04/07/2016 11:49 AM PAYMENT COLLECTOR [facility] Helicobacter pylori Urease Final Negative Negative 04/07/2016 11:49 AM PAYMENT COLLECTOR [facility] Microbiology GASTRIC CONTENTS SPECIMEN / Unknown 04/06/2016 9:51 AM PAYMENT COLLECTOR 04/06/2016 12:31 PM PAYMENT COLLECTOR Armando Corona MD LAB - MICROBIOLOGY Rafa SOTELO Performing Organization Address [facility] Co de Phone Number [facility] [address] [place] [address] * EGD (04/06/2016 9:19 AM PAYMENT COLLECTOR) Report Endoscopy POC __ _ Patient Name: [...] Procedure Code(s): ? --- Professional --- ? 81287, Esophagogastroduode noscopy, flexible, transoral; with biopsy, ? single or multiple ? --- Technical --- ? 54659, Esophagogastroduode noscopy, flexible, transoral; with biopsy, ? single or multiple Diagnosis Code(s): ? --- Professional --- ? K20.9, Esophagitis, unspecified ? K29.70, Gastritis, unspecified, without bleeding ? R10.9, Unspecified abdominal pain ? --- Technical --- ? K20.9, Esophagitis, unspecified ? K29.70, Gastritis, unspecified, without bleeding ? R10.9, Unspecified abdominal pain CPT copyright 2015 [employer]. All rights reserved. The codes documented in this report are preliminary and upon pit tanner review may be revised to meet current compliance requirements. Armando Corona, 04/06/2016 9:52:47 AM This report has been signed electronically. Number of Addenda: 0 Note Initiated On: 04/06/2016 9:19 AM [facility] 04/06/2016 9:19 AM PAYMENT COLLECTOR Narrative Procedure Note Armando Corona MD - 04/06/2016 9:53 AM CST EGD Grade A esophagitis Mild gastritis s/p bx Nl duodenum Armando Corona MD GI PROCEDURE ORDERAB LES [facility] * ENDOSCOPY, COLON, DIAGNOSTIC (12/15/2015 12:53 PM CDT) Armando Corona MD GI PROCEDURE ORDERAB LES * GROSS + MICRO EXAM (STL) (12/15/2015 12:34 PM CDT) Only the most recent of4 resultswithin the time period is included. Case Report Surgical Pathology Report ? Case: [id number] ? Authorizing Provider: ??Armando Corona MD ?Collected: ? 12/15/2015 12:34 PM ? Ordering Location: ? [facility] ?Received: ?12/16/2015 09:42 AM ? Pathologist: ? Doris Morrison MD ? Specimen: ?Colon Biopsy, random colon biopsy ? 12/17/2015 10:19 AM [facility] Final Diagnosis 1. ??Large intestine, random colon, endoscopic biopsy: -- ??No histopathologic abnormality OBEY/tao 12/17/2015 10:19 AM [facility] Gross Description Received in formalin in a container labeled Madalyn Walton, random colon biopsy. ??The container holds multiple pink-baird tissue fragments measuring from 0.2 cm up to 0.4 cm. The specimen is entirely submitted in a cassette labeled A1. LIYA/eloy 12/17/2015 10:19 AM [facility] Microscopic Description Histologic sections show fragments of large intestinal mucosa without specific histopathologic abnormality. ??There is no evidence of lymphocytic or collagenous colitis. ??There is no evidence of dysplasia or malignancy. ?? OBEY/tao 12/17/2015 10:19 AM CDT [facility] Pathology/Cytolo gy COLONIC BIOPSY SPECIMEN / Unknown 12/15/2015 12:34 PM CDT 12/16/2015 9:42 AM CDT Armando Corona MD LAB - PATHOLOGY/CYTO LOGY ORDERABLES [facility] [address] [place], [place] [id number] * ENDOSCOPY, COLON, SCREENING (12/15/2015 12:23 PM CDT) Report Endoscopy POC _ Patient Name: Madalyn Walton ? Procedure Date: 12/15/2015 12:23 PM ? Date of : 1975 ?Admit Type: Outpatient Age: 40 ? Gender: Female Attending MD: Armando Corona , ? _ Procedure: ? Colonoscopy Indications: ? Lower abdominal pain Providers: ? Armando Corona (Doctor), Enma Wong, ? Reproduction Technician Patient Profile: ?? 40F pmh 40F pmh [...] Procedure Code(s): ? --- Professional --- ? 16039, Colonoscopy, flexible; with biopsy, single or multiple ? --- Technical --- ? 66439, Colonoscopy, flexible; with biopsy, single or multiple Diagnosis Code(s): ? --- Professional --- ? R10.30, Lower abdominal pain, unspecified ? --- Technical --- ? R10.30, Lower abdominal pain, unspecified CPT copyright 2015 [employer]. All rights reserved. The codes documented in this report are preliminary and upon pit tanner review may be revised to meet current compliance requirements. Armando Corona, 12/15/2015 12:47:51 PM This report has been signed electronically. Number of Addenda: 0 Note Initiated On: 12/15/2015 12:23 PM [facility] 12/15/2015 12:2 3 PM CDT Narrative Transcriptions Armando Corona MD - 12/15/2015 12:53 PM CDT Neg colon s/p random bx Armando Corona MD GI PROCEDURE ORDERAB LES Performing Organization Address City/[facility]/ZIP Co de Phone Number [facility] * (ABNORMAL) LIPASE BLOOD (08/27/2015 6:11 PM CDT) Only the most recent of3 resultswithin the time period is included. Lipase 264(H) 10 - 220 U/L 08/27/2015 7:11 PM CDT [facility] Blood BLOOD SPECIMEN / Unknown Venipuncture / Unknown 08/27/2015 6:11 PM CDT 08/27/2015 6:14 PM CDT Colton Caballero MD LAB - CHEMISTRY ORDERABLES Performing Organization Address City/[facility]/ZIP Co de Phone Number [facility] [address] [place] [address] * (ABNORMAL) URINALYSIS MICROSCOPIC ONLY W/REFLEX CULTURE (08/12/2015 9:16 PM CDT) Only the most recent of2 resultswithin the time period is included. RBC UA 0-2 0-2, 2-5 # /hpf 08/12/2015 9:29 PM CDT [facility] WBC UA 2-5 0-2, 2-5 # /hpf 08/12/2015 9:29 PM CDT [facility] Bacteria UA 2+(A) None Seen 08/12/2015 9:29 PM CDT [facility] Epithelial Cell UA 10-20(A) 0-2, 2-5 # /hpf 08/12/2015 9:29 PM CDT [facility] Calcium Oxalate Crystals 1+(A) None Seen 08/12/2015 9:29 PM CDT [facility] Urine URINE SPECIMEN OBTAINED BY CLEAN CATCH PROCEDURE / Unknown 08/12/2015 9:16 PM CDT 08/12/2015 9:19 PM CDT Narrative [facility] - 08/12/2015 9:29 PM CDT *Microscopic performed on un-spun urine; <3mL urine submitted Eleno Mcclure DO LAB - URINALYSIS ORD ERABLES Performing Organization Address [facility] Co de Phone Number [facility] [address] [place] [id number] * PT-INR (08/12/2015 7:29 PM CDT) PT 9.9 9.5 - 11.6 sec 08/12/2015 7:58 PM CDT [facility] INR 1.0 0.9 - 1.1 08/12/2015 7:58 PM CDT [facility] Blood BLOOD SPECIMEN / Unknown Venipuncture / Unknown 08/12/2015 7:29 PM CDT 08/12/2015 7:44 PM CDT Narrative [facility] - 08/12/2015 7:58 PM CDT Conventional Warfarin Anticoagulant Therapy: INR Reference Range: ??2.0-3.0 Intensive Warfarin Anticoagulant Therapy: INR Reference Range: ? 2.5-3.5 Eleno Mcclure DO LAB - COAGULATION OR DERABLES Performing Organization Address [facility] Co de Phone Number [facility] [address] [place] [id number] * HEMOGLOBIN (08/04/2015 11:16 AM CDT) Pathologist [facility] Hemoglobin 12.6 12.0 - 15.6 gm/dL 08/04/2015 11:28 AM CDT [facility] Blood BLOOD SPECIMEN / Unknown Lab Venipuncture / Unknown 08/04/2015 11:16 AM CDT 08/04/2015 11:22 AM CDT Armando Corona MD LAB - HEMATOLOGY ORD ERABLES [facility] [address] [place], [place] [id number] * ENDOSCOPY, COLON, DIAGNOSTIC (08/04/2015 9:04 AM CDT) [facility] Report Endoscopy POC _ Patient Name: Madalyn [...] Procedure Code(s): ? --- Professional --- ? 41825, Colonoscopy, flexible; with removal of tumor(s), polyp(s), or ? other lesion(s) by snare technique ? --- Technical --- ? 49128, Colonoscopy, flexible; with removal of tumor(s), polyp(s), [...] abscess ? without bleeding CPT copyright 2015 [employer]. All rights reserved. The codes documented in this report are preliminary and upon pit tanner review may be revised to meet current compliance requirements. Armando Corona, 08/04/2015 9:38:09 AM This report has been signed electronically. Number of Addenda: 0 Note Initiated On: 08/04/2015 9:04 AM [facility] 08/04/2015 9:04 AM CDT Narrative Transcriptions Armando Corona MD - 08/04/2015 9:39 AM CDT Colonoscopy * fair prep *few diverticuli * no old or fresh blood * normal terminal ileum rec PRN hyoscyamine Capsule endoscopy today Armando Corona MD GI PROCEDURE ORDERAB LES [facility] * EGD (08/03/2015 7:24 AM CDT) [...] (Doctor), Roxi Bennett, ANTHONY, Sona Dove, ? Reproduction Technician Patient Profile: ?? 40F pmh depression, arthritis, [...] Procedure Code(s): ? --- Professional --- ? 33683, Esophagogastroduod enoscopy, flexible, transoral; with biopsy, ? single or multiple ? --- Technical --- ? 56755, Esophagogastroduod enoscopy, flexible, transoral; with biopsy, ? single or multiple Diagnosis Code(s): ? --- Professional --- ? K29.70, Gastritis, unspecified, without bleeding ? R10.13, Epigastric pain ? R10.33, Periumbilical pain ? K92.1, Melena (includes Hematochezia) ? --- Technical --- ? K29.70, Gastritis, unspecified, without bleeding ? R10.13, Epigastric pain ? R10.33, Periumbilical pain ? K92.1, Melena (includes Hematochezia) CPT copyright 2015 [employer]. All rights reserved. The codes documented in this report are preliminary and upon pit tanner review may be revised to meet current compliance requirements. Armando Corona, 08/03/2015 8:00:13 AM This report has been signed electronically. Number of Addenda: 0 Note Initiated On: 08/03/2015 7:24 AM [facility] 08/03/2015 7:24 AM CDT Narrative Transcriptions Armando Corona MD - 08/03/2015 8:00 AM CDT EGD - mild gastritis bx'd, other normal to proximal jejunum Rec Colonoscopy tomorrow Follow cbcs Armando Corona MD GI PROCEDURE ORDERAB LES Performing Organization Address City/[facility] Co de Phone Number [facility] * CULTURE STOOL+ E COLI SHIGA-LIKE TOXIN (08/02/2015 4:51 PM CDT) Only the most recent of2 resultswithin the time period is included. Culture No growth Salmonella, Shigella, Campylobacter , E. coli 0157:h7 or Yersinia CARLOS EDUARDO 08/04/2015 6:27 AM CDT [facility] Culture Negative E. coli Shiga-like toxin (NM) CARLOS EDUARDO 08/04/2015 6:27 AM CDT [facility] Stool STOOL SPECIMEN / Unknown Collection / Unknown 08/02/2015 4:51 PM CDT 08/02/2015 4:56 PM CDT Chucho Hinton MD LAB - MICROBIOLOGY O RDERABLES Performing Organization Address City/[facility]/ZIP Co de Phone Number [facility] [address] [place] [address], [facility] [phone] * HGB HCT PANEL (08/02/2015 10:02 AM CDT) Hemoglobin 12.3 12.0 - 15.6 gm/dL 08/02/2015 10:37 AM CDT [facility] Hematocrit 37.6 35.9 - 45.5 % 08/02/2015 10:37 AM CDT [facility] Blood BLOOD SPECIMEN / Unknown Lab Venipuncture / Unknown 08/02/2015 10:02 AM CDT 08/02/2015 10:13 AM CDT Akira Romero MD LAB - HEMATOLOGY ORD PRIMITIVO Performing Organization Address [facility]/ZIP Co de Phone Number [facility] [address] [place] [address] * ALCOHOL ETHYL BLOOD (08/02/2015 10:02 AM CDT) Ethanol <10 <10 mg/dL 08/02/2015 10:49 AM CDT [facility] Ethanol Calculated <0.100 gm/dL 08/02/2015 10:49 AM CDT [facility] Blood BLOOD SPECIMEN / Unknown Lab Venipuncture / Unknown 08/02/2015 10:02 AM CDT 08/02/2015 10:13 AM CDT Narrative [facility] - 08/02/2015 10:49 AM CDT Non Legal Serum Alcohol Chucho Hinton MD LAB - CHEMISTRY MORGAN YEE Performing Organization Address [facility] Co de Phone Number [facility] [address] [place] [address] * (ABNORMAL) LIPID PROFILE (08/02/2015 10:02 AM CDT) Cholesterol 184 <200 mg/dL 08/02/2015 10:49 AM CDT [facility] Triglycerides 156(H) <150 mg/dL 08/02/2015 10:49 AM CDT [facility] HDL Cholesterol 43 >40 mg/dL 08/02/2015 10:49 AM CDT [facility] LDL Calculated 110 <130 mg/dL 08/02/2015 10:49 AM CDT [facility] VLDL Calculated 31(H) <=30 mg/dL 08/02/2015 10:49 AM CDT [facility] Chol HDL Ratio 4.3 <4.5 08/02/2015 10:49 AM CDT [facility] LDL/HDL Ratio 2.6 <5.0 08/02/2015 10:49 AM CDT [facility] Blood BLOOD SPECIMEN / Unknown Lab Venipuncture / Unknown 08/02/2015 10:02 AM CDT 08/02/2015 10:13 AM CDT Chucho Hinton MD LAB - CHEMISTRY MORGAN YEE [facility] Organization Address City/State/ZIP Co de Phone Number [facility] [address] [place] [address] * CT ABDOMEN AND PELVIS WITH IV [...] ABO A 08/01/2015 8:23 PM CDT [facility] Rh Type Positive 08/01/2015 8:23 PM CDT [facility] Comment:History check perfor med. Retype required. Antibody Screen Negative 08/01/2015 8:23 PM CDT [facility] Miscellaneous samples (specimen) BLOOD SPECIMEN / Unknown Venipuncture / Unknown 08/01/2015 7:19 PM CDT 08/01/2015 7:22 PM CDT Hari Niño MD LAB - BLOOD BANK ORD ERABLES [facility] [address] * LAB RESULTS ORDER (07/19/2015 5:06 [...] (Doctor), Felipe Gasca RN, Daren ? Jose, Reproduction Technician Patient Profile: ?? 40F pmh depression, arthritis [...] Procedure Code(s): ? --- Professional --- ? 04222, Esophagogastroduod enoscopy, flexible, transoral; with biopsy, ? single or multiple ? --- Technical --- ? 62918, Esophagogastroduod enoscopy, flexible, transoral; with biopsy, ? single or multiple Diagnosis Code(s): ? --- Professional --- ? K25.9, Gastric ulcer, unspecified as acute or chronic, without ? hemorrhage or perforation ? R10.13, Epigastric pain ? --- Technical --- ? K25.9, Gastric ulcer, unspecified as acute or chronic, without ? hemorrhage or perforation ? R10.13, Epigastric pain CPT copyright 2015 [employer]. All rights reserved. The codes documented in this report are preliminary and upon pit tanner review may be revised to meet current compliance requirements. Armando Corona, 07/15/2015 2:36:07 PM This report has been signed electronically. Number of Addenda: 0 Note Initiated On: 07/15/2015 2:08 PM [facility] 07/15/2015 2:08 PM CDT Narrative Transcriptions [...] GI PROCEDURE ORDERAB LES Performing Organization Address [facility]/ZIP Co de Phone Number [facility] * MPO/OK 3 AUTOANTIBODIES PANEL (07/15/2015 5:51 AM CDT) Anti-myeloperox idase (MPO) Antibody <9.0 0.0 - 9.0 U/mL 07/18/2015 1:17 PM CDT [facility] ([facility]) Anti-proteinase 3 (OK-3) Abs <3.5 0.0 - 3.5 U/mL 07/18/2015 1:17 PM CDT [facility] ([facility]) Blood specimen (specimen) BLOOD SPECIMEN / Unknown Lab Venipuncture / Unknown 07/15/2015 5:51 AM CDT 07/15/2015 6:11 AM CDT Narrative [facility] ([facility]) - 07/18/2015 1:17 PM CDT Performed at: ??01 - [facility] [address] ??[id number] Master Brewer: Curtis Sanchez MD, Phone: ??[phone] Chucho Hinton MD LAB - CHEMISTRY MORGAN YEE Performing Organization Address City/[facility]/ZIP Co de Phone Number [facility] ([facility]) * (ABNORMAL) C-REACTIVE PROTEIN (07/15/2015 5:50 AM CDT) Pathologist [facility] C-Reactive Protein 0.30(H) <0.30 mg/dL 07/15/2015 6:48 AM CDT [facility] Blood BLOOD SPECIMEN / Unknown Lab Venipuncture / Unknown 07/15/2015 5:50 AM CDT 07/15/2015 6:11 AM CDT Chucho Hinton MD LAB - CHEMISTRY ORDE RABLES Performing Organization Address [facility] Co de Phone Number [facility] [address] [place], [place] [phone] * SED RATE WESTERGREN (07/15/2015 5:50 AM CDT) [facility] Erythrocyte Sedimentation Rate Westergren 7 0 - 20 mm/hr 07/15/2015 6:36 AM CDT [facility] Blood BLOOD SPECIMEN / Unknown Lab Venipuncture / Unknown 07/15/2015 5:50 AM CDT 07/15/2015 6:11 AM CDT Chucho Hinton MD LAB - HEMATOLOGY ORD ERABLES Performing Organization Address [facility] Co de Phone Number [facility] [address] [place] [phone] * (ABNORMAL) LACTOFERRIN FECAL QUALITATIVE (07/14/2015 1:44 PM CDT) [facility] Lactoferrin Fecal Positive( A) Negative 07/14/2015 9:15 PM CDT [facility] Stool STOOL SPECIMEN / Unknown Collection / Unknown 07/14/2015 1:44 PM CDT 07/14/2015 3:56 PM CDT Narrative [facility] - 07/14/2015 9:15 PM CDT Fecal lactoferrin is a marker for fecal leukocytes. CAUTION: A negative result does not exclude the presence of intestinal inflammation. This test is not recommended for children who are breast-fed; the presence of lactoferrin in breast milk can give false-positive results. Chucho Hinton MD LAB - BODY FLUID ORD ERABLES Performing Organization Address City/[facility]/ZIP Co de Phone Number [facility] [address] [place] [address], [facility] [phone] * CLOSTRIDIUM DIFFICILE GDH AG + TOXIN A+B (07/14/2015 1:43 PM CDT) GDH Antigen Negative Negative, Invalid 07/15/2015 9:08 AM CDT [facility] C difficile Toxin A + B Negative Negative, Invalid 07/15/2015 9:08 AM CDT [facility] Interpretation C difficile Negative for toxigenic C. difficile Negative for toxigenic C. difficile 07/15/2015 9:08 AM CDT [facility] Stool STOOL SPECIMEN / Unknown Collection / Unknown 07/14/2015 1:43 PM CDT 07/14/2015 3:55 PM CDT Chucho Hinton MD LAB - MICROBIOLOGY O RDERABLES Performing Organization Address [facility] Co de Phone Number [facility] [address] [place] [address], [facility] [phone] * XR HANDS BILATERAL 2 VIEWS (06/29/2015 1:18 PM PAYMENT COLLECTOR) Anatomical Region Laterality Modality Wrist / Hand, Upper Extremity Ra diographic Imaging 06/29/2015 7:37 PM PAYMENT COLLECTOR Impressions 06/29/2015 7:38 PM PAYMENT COLLECTOR Normal radiographs of both hands. Narrative 06/29/2015 7:38 PM PAYMENT COLLECTOR BILATERAL HANDS, TWO VIEWS OF EACH HISTORY: [...] [facility] TRINO Olivarez ORDERABLES Care Teams Saw Superintendent Relationship Specialty Start Date End Date Feliciano Dash MD [address] [facility] [address] [place] [address] PCP - General 07/14/21 Jonathan Hartman, RN Pet Walker 07/14/15
--- OUTSIDE RECORDS SUMMARY | 2024-04-29 20:11 | XMS_ITS | Encounter Summary ---
Author Organization [facility] Address [address] [place] [address] Care Team Providers Care Head Cleaning Porter Name Role Phone Anthony Hartmanrubi Delaney RN Unavailable [phone] Feliciano Dash MD Primary Care Provider [phone] Reason for Visit * Reason Comments Shortness of Breath sob and pain with de ep inspiration x 2 weeks, had ct chest 2 weeks ago showing partial collapsed lung, productive cough * Auth/Cert Specialty Diagnoses / Procedures Referred By Kaylynn t Referred To Contact Referral ID Status Reason Start Date Expiration Date Visits Re quested Visits Authorized [id number] 1 1 Encounter Details Date Type Department Care Team (Late st Contact Info) Description 01/29/2017 11:48 AM CDT - 02/02/2017 11:57 AM CDT Hospital Encounter HC 3E MED/ONC [address] [place] [address] Clinton Dorman, [address] [facility] [place] [address] Mauro Sanchez MD Shami, Salwat, MD [address] [place] [address] Akira Romero MD [address] [place] [address] Internal Medicine Discharge Disposition: Home [...] due to infection She follows up with prosthetics technician ??Can resume her medications upon discharge PUD [...] 24 hours. Obtains from [facility] in [place]. Reasons: Rhemuatoid arthiritis and Meredith-Danlos syndrome Other CDB-THC (1:1 ratio) 10 mg capsule by mouth daily. Obtains from [facility] in [place]. Reasons: Rheumatoid arthritis and Meredith-Danlos syndrome pantoprazole [...] discharge diagnosis is: CAP (community acquired pneumonia) [[id number]] Follow up with Primary Care Provider (PCP) [...] 24 hours. Obtains from [facility] in [place]. Reasons: Rhemuatoid arthiritis and Meredith-Danlos syndrome OtherIndications:Rheu matoid arthritis and Meredith-Danlos syndrome CDB-THC (1:1 ratio) 10 mg capsule by mouth daily. Obtains from [facility] in [place]. Reasons: Rheumatoid arthritis and Meredith-Danlos syndrome pantoprazole [...] Prince RN - 02/01/2017 3:36 PM CDT AN/SSN 2 4 OPERATOR NOTE: Clinical progress and medical plan reviewed. 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 [...] Lymph 9.2 (L) 20.0 - 43.0 % Marin 3.0 (L) 5.0 - 13.0 % Eos 0.0 0.0 - 6.0 % Baso 0.2 0.0 - 2.0 % Immature Grans 2.0 (H) 0 - 1 % Neutro Abs 7.17 (H) 2.01 - 7.14 x10E9/L Lymph Abs 0.77 (L) 1.07 - 3.94 x10E9/L Marin Abs 0.25 (L) 0.26 - 1.07 x10E9/L [...] % Lymph 31.9 20.0 - 43.0 % Marin 6.4 5.0 - 13.0 % Eos 2.9 0.0 - 6.0 % Baso 0.8 0.0 - 2.0 % Immature Grans 2.5 (H) 0 - 1 % Neutro Abs 4.39 2.01 - 7.14 x10E9/L Lymph Abs 2.53 1.07 - 3.94 x10E9/L Marin Abs 0.51 0.26 - 1.07 x10E9/L Eosin [...] % Lymph 30.7 20.0 - 43.0 % Marin 6.0 5.0 - 13.0 % Eos 3.5 0.0 - 6.0 % Baso 1.0 0.0 - 2.0 % Immature Grans 3.1 (H) 0 - 1 % Neutro Abs 3.99 2.01 - 7.14 x10E9/L Lymph Abs 2.20 1.07 - 3.94 x10E9/L Marin Abs 0.43 0.26 - 1.07 x10E9/L Eosin [...] due to infection She follows up with prosthetics technician PUD Stable Continue PPI and Carafate Anxiety/depression [...] well this shift, meds given per [facility]. Family at bedside part of [...] generalized malaise I have reviewed the [facility] Clinical Course 41 y.o. female with Past Medical History: Diagnosis Date ??? Anxiety ??? Diverticulitis ??? Merediht-Danlos syndrome ??? Gastric ulcer ??? Gastritis ??? [...] Lymph 13.3 (L) 20.0 - 43.0 % Marin 4.3 (L) 5.0 - 13.0 % Eos 0.9 0.0 - 6.0 % Baso 0.8 0.0 - 2.0 % Immature Grans 1.4 (H) 0 - 1 % Neutro Abs 10.65 (H) 2.01 - 7.14 x10E9/L Lymph Abs 1.79 1.07 - 3.94 x10E9/L Marin Abs 0.58 0.26 - 1.07 x10E9/L Eosin [...] Calculation (Bezet) ms 472 ms Calculated P [place] degrees 26 degrees Calculated R [place] degrees 48 degrees Calculated T axis degrees 33 degrees EKG Interp SINUS RHYTHM WITH SHORT WI NONSPECIFIC ST ABNORMALITY ABNORMAL ECG Confirmed by MD Lisandra, Toi ([id number]) on 01/30/2017 7:55:22 AM INFLUENZA A+B ANTIGEN [...] Lymph 9.2 (L) 20.0 - 43.0 % Marin 3.0 (L) 5.0 - 13.0 % Eos 0.0 0.0 - 6.0 % Baso 0.2 0.0 - 2.0 % Immature Grans 2.0 (H) 0 - 1 % Neutro Abs 7.17 (H) 2.01 - 7.14 x10E9/L Lymph Abs 0.77 (L) 1.07 - 3.94 x10E9/L Marin Abs 0.25 (L) 0.26 - 1.07 x10E9/L [...] % Lymph 31.9 20.0 - 43.0 % Marin 6.4 5.0 - 13.0 % Eos 2.9 0.0 - 6.0 % Baso 0.8 0.0 - 2.0 % Immature Grans 2.5 (H) 0 - 1 % Neutro Abs 4.39 2.01 - 7.14 x10E9/L Lymph Abs 2.53 1.07 - 3.94 x10E9/L Marin Abs 0.51 0.26 - 1.07 x10E9/L Eosin [...] taking steroids Patient follows up with a prosthetics technician ?? Peptic ulcer disease Stable Continue PPI [...] distress and call light within reach. * dAri Daniels RCP - 01/30/2017 7:58 PM CDT [...] generalized malaise. I have reviewed the [facility] Clinical Course 41 y.o. female [...] Lymph 13.3 (L) 20.0 - 43.0 % Marin 4.3 (L) 5.0 - 13.0 % Eos 0.9 0.0 - 6.0 % Baso 0.8 0.0 - 2.0 % Immature Grans 1.4 (H) 0 - 1 % Neutro Abs 10.65 (H) 2.01 - 7.14 x10E9/L Lymph Abs 1.79 1.07 - 3.94 x10E9/L Marin Abs 0.58 0.26 - 1.07 x10E9/L Eosin [...] Calculation (Bezet) ms 472 ms Calculated P [place] degrees 26 degrees Calculated R [place] degrees 48 degrees Calculated T axis degrees 33 degrees EKG Interp SINUS RHYTHM WITH SHORT WI NONSPECIFIC ST ABNORMALITY ABNORMAL ECG Confirmed by MD Lisandra, Toi ([id number]) on 01/30/2017 7:55:22 AM INFLUENZA A+B ANTIGEN [...] Lymph 9.2 (L) 20.0 - 43.0 % Marin 3.0 (L) 5.0 - 13.0 % Eos 0.0 0.0 - 6.0 % Baso 0.2 0.0 - 2.0 % Immature Grans 2.0 (H) 0 - 1 % Neutro Abs 7.17 (H) 2.01 - 7.14 x10E9/L Lymph Abs 0.77 (L) 1.07 - 3.94 x10E9/L Marin Abs 0.25 (L) 0.26 - 1.07 x10E9/L [...] taking steroids Patient follows up with a prosthetics technician Peptic ulcer disease Stable Continue PPI Anxiety/depression [...] Contact Information Primary Emergency Contact: Toi Sauer [facility] Relation: Spouse Secondary Emergency Contact: BalbirHenrique [facility] Relation: Father Anticipated Discharge Date: Anticipated Discharge [...] For any questions or needs please contact: Towel Hemmer Name/Phone number: Enriqueta Moon RN * Alyse [...] other (CDB-THC capsule), topiramate, trazodone Removed: Alprazolam, iklyoetcbu-coaxlhiadqyll-zylanqer, cyclobenzaprine, hydrocodone-acetaminophen,hydroxychloroquine, loperamide, melatonin, methotrexate, ranitidine Additional Info: Reconciled list with patient and [facility] pharmacy records. List Review Timing: Before [...] transdermal route every 24 hours. Obtains from [facility] in [place]. Reasons: Rhemuatoid arthiritis and Meredith-Danlos syndrome ??? Other CDB-THC (1:1 ratio) 10 mg capsule by mouth daily. Obtains from [facility] in [place]. Reasons: Rheumatoid arthritis and Meredith-Danlos syndrome ??? [...] results for input(s): PHOS in the last 10390 hours.No results for input(s): HGBA1C in the last 32791 hours. No results for input(s): PREALBUMIN in the last 04527 hours. No data found. 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 She doesn't take narcotics regularily. 7:03 [...] review, submitted by Joshua CRUZ at [employer] [id number] Situation: Patient is a 41 y.o. [...] with the patient: 01/29/2017 12:51 Madalyn Sauer [id number] [facility] EMERGENCY DEPARTMENT History Chief Complaint [...] 5 mg by mouth at bedtime ??? htqzgwtvsf-taltyfvndlohp-vdsrkizj (FIORICET) 50-325-40 MG tablet 1 Tab every [...] Lymph 13.3 (L) 20.0 - 43.0 % Marin 4.3 (L) 5.0 - 13.0 % Eos 0.9 0.0 - 6.0 % Baso 0.8 0.0 - 2.0 % Immature Grans 1.4 (H) 0 - 1 % Neutro Abs 10.65 (H) 2.01 - 7.14 x10E9/L Lymph Abs 1.79 1.07 - 3.94 x10E9/L Marin Abs 0.58 0.26 - 1.07 x10E9/L Eosin [...] discussed with BRITT Covarrubias for Dr. Vidal ([facility]) all pertinent aspects of the [...] 107 mmol/L 02/01/2017 4:48 AM CDT [facility] CO2 19(L) 22 - 31 mmol/L 02/01/2017 4:48 AM CDT [facility] Calcium 8.3(L) 8.5 - 10.1 mg/dL 02/01/2017 4:48 AM CDT [facility] Anion Gap 8 8 - 16 mmol/L 02/01/2017 4:48 AM CDT [facility] BUN 8 7 - 21 mg/dL 02/01/2017 4:48 AM CDT [facility] Creatinine 0.76 0.50 - 1.30 mg/dL 02/01/2017 4:48 AM CDT [facility] eGFR by MDRD >60 >60 mL/min/1.7 3m2 02/01/2017 4:48 AM CDT [facility] eGFR by MDRD >60 >60 mL/min/1.7 3m2 02/01/2017 4:48 AM CDT [facility] Blood BLOOD SPECIMEN / Unknown Lab Venipuncture / Unknown 02/01/2017 3:29 AM CDT 02/01/2017 4:22 AM CDT Kristi Shah MD LAB - CHEMISTRY [place] [facility] Organization Address City/State/ZIP Co de Phone Number [facility] [address] [place] [address] * (ABNORMAL) CBC W AUTO DIFFERENTIAL (02/01/2017 3:29 AM CDT) WBC 7.2 4.4 - 10.7 x10E9/L 02/01/2017 4:35 AM CDT [facility] WBC Corrected x10E9/L 02/01/2017 4:35 AM CDT [facility] RBC 3.88 3.80 - 5.20 x10E12/L 02/01/2017 4:35 AM CDT [facility] Hemoglobin 11.3(L) 12.0 - 15.6 gm/dL 02/01/2017 4:35 AM CDT [facility] Hematocrit 35.1(L) 35.9 - 45.5 % 02/01/2017 4:35 AM CDT [facility] MCV 90.5 80.7 - 98.3 fl 02/01/2017 4:35 AM CDT [facility] MCH 29.1 26.7 - 34.0 pg 02/01/2017 4:35 AM CDT [facility] MCHC 32.2 30.8 - 35.9 gm/dL 02/01/2017 4:35 AM CDT [facility] Platelet Count 313 153 - 416 x10E9/L 02/01/2017 4:35 AM CDT [facility] RDW-CV 13.4 12.1 - 14.9 % 02/01/2017 4:35 AM CDT [facility] MPV 8.7(L) 9.4 - 12.9 fl 02/01/2017 4:35 AM CDT [facility] Neutrophils % 55.7 44.0 - 73.0 % 02/01/2017 4:35 AM CDT [facility] Lymphocytes % 30.7 20.0 - 43.0 % 02/01/2017 4:35 AM CDT [facility] Monocytes % 6.0 5.0 - 13.0 % 02/01/2017 4:35 AM CDT [facility] Eosinophils % 3.5 0.0 - 6.0 % 02/01/2017 4:35 AM CDT [facility] Basophils % 1.0 0.0 - 2.0 % 02/01/2017 4:35 AM CDT [facility] Immature Granulocytes 3.1(H) 0 - 1 % 02/01/2017 4:35 AM CDT [facility] Neutrophil Absolute 3.99 2.01 - 7.14 x10E9/L 02/01/2017 4:35 AM CDT [facility] Lymphocytes Absolute 2.20 1.07 - 3.94 x10E9/L 02/01/2017 4:35 AM CDT [facility] Monocytes Absolute 0.43 0.26 - 1.07 x10E9/L 02/01/2017 4:35 AM CDT [facility] Eosinophils Absolute 0.25 0 - 0.47 x10E9/L 02/01/2017 4:35 AM CDT [facility] Basophils Absolute 0.07 0 - 0.08 x10E9/L 02/01/2017 4:35 AM CDT [facility] Immature Granulocytes Absolute 0.22(H) 0.00 - 0.06 x10E9/L 02/01/2017 4:35 AM CDT [facility] nRBC Auto 0 /100 WBC 02/01/2017 4:35 AM CDT [facility] Blood BLOOD SPECIMEN / Unknown Lab Venipuncture / Unknown 02/01/2017 3:29 AM CDT 02/01/2017 4:22 AM CDT Kristi Shah MD LAB - HEMATOLOGY ORD ERABLES [facility] [address] [place] [address] * (ABNORMAL) BASIC METABOLIC PANEL (CALCIUM TOTAL) (01/31/2017 2:43 AM CDT) [facility] Glucose 86 74 - 106 mg/dL 01/31/2017 4:22 AM CDT [facility] Sodium 143 136 - 145 mmol/L 01/31/2017 4:22 AM CDT [facility] Potassium 4.0 3.5 - 5.1 mmol/L 01/31/2017 4:22 AM CDT [facility] Chloride 115(H) 98 - 107 mmol/L 01/31/2017 4:22 AM CDT [facility] CO2 21(L) 22 - 31 mmol/L 01/31/2017 4:22 AM CDT [facility] Calcium 7.9(L) 8.5 - 10.1 mg/dL 01/31/2017 4:22 AM CDT [facility] Anion Gap 7(L) 8 - 16 mmol/L 01/31/2017 4:22 AM CDT [facility] BUN 10 7 - 21 mg/dL 01/31/2017 4:22 AM CDT [facility] Creatinine 0.85 0.50 - 1.30 mg/dL 01/31/2017 4:22 AM CDT [facility] eGFR by MDRD >60 >60 mL/min/1.7 3m2 01/31/2017 4:22 AM CDT [facility] eGFR by MDRD >60 >60 mL/min/1.7 3m2 01/31/2017 4:22 AM CDT [facility] Blood BLOOD SPECIMEN / Unknown Lab Venipuncture / Unknown 01/31/2017 2:43 AM CDT 01/31/2017 3:57 AM CDT Kristi Shah MD LAB - CHEMISTRY [place] [facility] Organization Address City/State/ZIP Co de Phone Number [facility] [address] [place] [address] * (ABNORMAL) CBC W AUTO DIFFERENTIAL (01/31/2017 2:42 AM CDT) WBC 7.9 4.4 - 10.7 x10E9/L 01/31/2017 4:15 AM CDT [facility] WBC Corrected x10E9/L 01/31/2017 4:15 AM CDT [facility] RBC 3.79(L) 3.80 - 5.20 x10E12/L 01/31/2017 4:15 AM CDT [facility] Hemoglobin 10.8(L) 12.0 - 15.6 gm/dL 01/31/2017 4:15 AM CDT [facility] Hematocrit 34.9(L) 35.9 - 45.5 % 01/31/2017 4:15 AM CDT [facility] MCV 92.1 80.7 - 98.3 fl 01/31/2017 4:15 AM CDT [facility] MCH 28.5 26.7 - 34.0 pg 01/31/2017 4:15 AM CDT [facility] MCHC 30.9 30.8 - 35.9 gm/dL 01/31/2017 4:15 AM CDT [facility] Platelet Count 296 153 - 416 x10E9/L 01/31/2017 4:15 AM CDT [facility] RDW-CV 13.4 12.1 - 14.9 % 01/31/2017 4:15 AM CDT [facility] MPV 8.9(L) 9.4 - 12.9 fl 01/31/2017 4:15 AM CDT [facility] Neutrophils % 55.5 44.0 - 73.0 % 01/31/2017 4:15 AM CDT [facility] Lymphocytes % 31.9 20.0 - 43.0 % 01/31/2017 4:15 AM CDT [facility] Monocytes % 6.4 5.0 - 13.0 % 01/31/2017 4:15 AM CDT [facility] Eosinophils % 2.9 0.0 - 6.0 % 01/31/2017 4:15 AM CDT [facility] Basophils % 0.8 0.0 - 2.0 % 01/31/2017 4:15 AM CDT [facility] Immature Granulocytes 2.5(H) 0 - 1 % 01/31/2017 4:15 AM CDT [facility] Neutrophil Absolute 4.39 2.01 - 7.14 x10E9/L 01/31/2017 4:15 AM CDT [facility] Lymphocytes Absolute 2.53 1.07 - 3.94 x10E9/L 01/31/2017 4:15 AM CDT [facility] Monocytes Absolute 0.51 0.26 - 1.07 x10E9/L 01/31/2017 4:15 AM CDT [facility] Eosinophils Absolute 0.23 0 - 0.47 x10E9/L 01/31/2017 4:15 AM CDT [facility] Basophils Absolute 0.06 0 - 0.08 x10E9/L 01/31/2017 4:15 AM CDT [facility] Immature Granulocytes Absolute 0.20(H) 0.00 - 0.06 x10E9/L 01/31/2017 4:15 AM CDT [facility] nRBC Auto 0 /100 WBC 01/31/2017 4:15 AM CDT [facility] Blood BLOOD SPECIMEN / Unknown Lab Venipuncture / Unknown 01/31/2017 2:42 AM CDT 01/31/2017 3:57 AM CDT Kristi Shah MD LAB - HEMATOLOGY ORD ERABLES [facility] [address] [place] [address] * (ABNORMAL) CHLAMYDIA ANTIBODY IGG/IGM PANEL (01/30/2017 2:42 AM CDT) Chlamydia psittaci Antibody IgM <1:10 Neg:<1:10 02/01/2017 5:10 PM CDT [facility] ([facility]) Comment: This test was developed and its performance characteristics determined by [facility]. ??It has not been cleared or approved by the Food and Drug Administration. ??The FDA has determined that such clearance or approval is not necessary. Chlamydia psittaci Antibody IgG <1:16 Neg:<1:16 02/01/2017 5:10 PM CDT [facility] ([facility]) Comment: This test was developed and its performance characteristics determined by [facility]. ??It has not been cleared or approved by the Food and Drug Administration. ??The FDA has determined that such clearance or approval is not necessary. Chlamydia pneumoniae Antibody IgM <1:16 Neg:<1:16 02/01/2017 5:10 PM CDT [facility] ([facility]) Test Information Comment 02/02/20 17 5:10 PM CDT [facility] ([facility]) Comment: This test was developed and its performance characteristics determined by [facility]. It has not been cleared or approved [...] Neg:<1:10 02/01/2017 5:10 PM CDT [facility] ([facility]) Chlamydia trachomatis Antibody IgM <0.8 0.0 - 0.7 index 02/01/2017 5:10 PM CDT [facility] ([facility]) Comment: ?Negative ? <0.8 ?Borderline ?0.8 - 1.0 ?Positive ? >1.0 Results for this test are for research purposes only by the assay's serials librarian. ??The performance characteristics of this product have not been established. ??Results should not be used as a diagnostic procedure without confirmation of the diagnosis by another medically established diagnostic product or procedure. Chlamydia Antibody IgG 1.18(H) 0.00 - 0.90 ratio 02/01/2017 5:10 PM CDT [facility] ([facility]) Comment: ?Negative ? <0.91 ?Equivocal ??0.91 - 1.09 ?Positive ? >1.09 Blood BLOOD SPECIMEN / Unknown Lab Venipuncture / Unknown 01/30/2017 2:42 AM CDT 01/30/2017 3:08 AM CDT [facility] - 02/01/2017 5:10 PM CDT Performed at: ??01 - [facility] [address] ??[id number] Gasoline Pump Installer: Curtis Sanchez MD, Phone: ??[phone] Akira Romero MD LAB - CHEMISTRY [place] [facility] ([facility]) [address] [place] [address] * MYCOPLASMA PNEUMO ANTIBODY IGG/IGM PANEL (01/30/2017 2:42 AM CDT) Mycoplasma pneumoniae Antibody IgG <100 0 - 99 U/mL 01/31/2017 4:21 PM CDT [facility] ([facility]) Comment: ? Negative: ? <100 ? [...] 769 U/mL 01/31/2017 4:21 PM CDT [facility] ([facility]) Comment: ? Negative ?<770 Clinically significant [...] AM CDT 01/30/2017 3:08 AM CDT [facility] - 01/31/2017 4:21 PM CDT Performed at: ??01 - [facility] [address] [place] [address] ??[id number] Gasoline Pump Installer: Mahendra Trevino PhD, Phone: ??[phone] Akira Romero MD LAB - SEROLOGY ORDER BOB Performing Organization Address City/State/[facility] Co de Phone Number [facility] ([facility]) [address] [place] [address] * (ABNORMAL) CBC W AUTO DIFFERENTIAL (01/30/2017 2:42 AM CDT) WBC 8.4 4.4 - 10.7 x10E9/L 01/30/2017 3:30 AM CDT [facility] WBC Corrected x10E9/L 01/30/2017 3:30 AM CDT [facility] RBC 3.93 3.80 - 5.20 x10E12/L 01/30/2017 3:30 AM CDT [facility] Hemoglobin 11.2(L) 12.0 - 15.6 gm/dL 01/30/2017 3:30 AM CDT [facility] Hematocrit 35.5(L) 35.9 - 45.5 % 01/30/2017 3:30 AM CDT [facility] MCV 90.3 80.7 - 98.3 fl 01/30/2017 3:30 AM CDT [facility] MCH 28.5 26.7 - 34.0 pg 01/30/2017 3:30 AM CDT [facility] MCHC 31.5 30.8 - 35.9 gm/dL 01/30/2017 3:30 AM [facility] Platelet Count 311 153 - 416 x10E9/L 01/30/2017 3:30 AM [facility] RDW-CV 13.1 12.1 - 14.9 % 01/30/2017 3:30 AM [facility] MPV 8.8(L) 9.4 - 12.9 fl 01/30/2017 3:30 AM [facility] Neutrophils % 85.6(H) 44.0 - 73.0 % 01/30/2017 3:30 AM [facility] Lymphocytes % 9.2(L) 20.0 - 43.0 % 01/30/2017 3:30 AM CDT [facility] Monocytes % 3.0(L) 5.0 - 13.0 % 01/30/2017 3:30 AM [facility] Eosinophils % 0.0 0.0 - 6.0 % 01/30/2017 3:30 AM CDT [facility] Basophils % 0.2 0.0 - 2.0 % 01/30/2017 3:30 AM CDT [facility] Immature Granulocytes 2.0(H) 0 - 1 % 01/30/2017 3:30 AM CDT [facility] Neutrophil Absolute 7.17(H) 2.01 - 7.14 x10E9/L 01/30/2017 3:30 AM CDT [facility] Lymphocytes Absolute 0.77(L) 1.07 - 3.94 x10E9/L 01/30/2017 3:30 AM CDT [facility] Monocytes Absolute 0.25(L) 0.26 - 1.07 x10E9/L 01/30/2017 3:30 AM CDT [facility] Eosinophils Absolute 0.00 0 - 0.47 x10E9/L 01/30/2017 3:30 AM CDT [facility] Basophils Absolute 0.02 0 - 0.08 x10E9/L 01/30/2017 3:30 AM CDT [facility] Immature Granulocytes Absolute 0.17(H) 0.00 - 0.06 x10E9/L 01/30/2017 3:30 AM CDT [facility] nRBC Auto 0 /100 WBC 01/30/2017 3:30 AM CDT [facility] Blood BLOOD SPECIMEN / Unknown Lab Venipuncture / Unknown 01/30/2017 2:42 AM CDT 01/30/2017 3:08 AM CDT Clinton Dorman DO LAB - HEMATOLOGY ORD ERABLES [facility] [address] [place] [address] * (ABNORMAL) BASIC METABOLIC PANEL (CALCIUM TOTAL) (01/30/2017 2:42 AM CDT) Glucose 132(H) 74 - 106 mg/dL 01/30/2017 3:57 AM CDT [facility] Sodium 143 136 - 145 mmol/L 01/30/2017 3:57 AM CDT [facility] Potassium 3.9 3.5 - 5.1 mmol/L 01/30/2017 3:57 AM CDT [facility] Chloride 117(H) 98 - 107 mmol/L 01/30/2017 3:57 AM CDT [facility] CO2 16(L) 22 - 31 mmol/L 01/30/2017 3:57 AM CDT [facility] Calcium 7.9(L) 8.5 - 10.1 mg/dL 01/30/2017 3:57 AM CDT [facility] Anion Gap 10 8 - 16 mmol/L 01/30/2017 3:57 AM CDT [facility] BUN 11 7 - 21 mg/dL 01/30/2017 3:57 AM CDT [facility] Creatinine 0.81 0.50 - 1.30 mg/dL 01/30/2017 3:57 AM CDT [facility] eGFR by MDRD >60 >60 mL/min/1.7 3m2 01/30/2017 3:57 AM CDT [facility] eGFR by MDRD >60 >60 mL/min/1.7 3m2 01/30/2017 3:57 AM CDT [facility] Blood BLOOD SPECIMEN / Unknown Lab Venipuncture / Unknown 01/30/2017 2:42 AM CDT 01/30/2017 3:08 AM CDT Clinton Dorman DO LAB - CHEMISTRY MORGAN YEE [facility] [address] [place] [address] * HISTOPLASMA GALACTOMANNAN AG URINE (01/29/2017 10:37 PM CDT) [facility] Histoplasma galactomannan Antigen Urine <0.5 <0.5 ng/mL 02/01/2017 3:19 PM CDT [facility] ([facility]) Disclaimer Comment 02/01/2017 3:19 PM CDT [facility] ([facility]) Comment: This test was developed and its performance characteristics determined by [facility]. It has not been cleared or approved by the Food and Drug Administration. Urine URINE / Unknown Collection / Unknown 01/29/2017 10:37 PM CDT 01/29/2017 10:43 PM CDT Narrative [facility] ([facility]) - 02/01/2017 3:19 PM CDT Performed at: ??01 - [address] ??[id number] [employer]er: Curtis Sanchez MD, Phone: ??[phone] Akira Romero MD LAB - URINE CHEMISTR Y ORDERABLES Performing Organization Address City/[facility]/ZIP Co de Phone Number [facility] ([facility]) [address] [place] [address] * RESPIRATORY PATHOGEN PANEL BY PCR (01/29/2017 10:36 PM CDT) Pathologist [facility] Adenovirus PCR Not detected Not detected, Invalid, Indeterminate 01/30/2017 5:53 AM CDT [facility] Human Metapneumovirus PCR Not detected Not detected, Invalid, Indeterminate 01/30/2017 5:53 AM T [facility] Human Rhinovirus/Entero virus PCR Not detected Not detected, Invalid, Indeterminate 01/30/2017 5:53 AM T [facility] Influenza A Non Subtyped PCR Not detected Not detected, Invalid, Indeterminate 01/30/2017 5:53 AM T [facility] Influenza A H1 PCR Not detected Not detected, Invalid, Indeterminate 01/30/2017 5:53 AM T [facility] Influenza A H3 PCR Not detected Not detected, Invalid, Indeterminate 01/30/2017 5:53 AM [facility] Influenza A H1 2009 PCR Not detected Not detected, Invalid, Indeterminate 01/30/2017 5:53 AM T [facility] Influenza B PCR Not detected Not detected, Invalid, Indeterminate 01/30/2017 5:53 AM [facility] Mycoplasma pneumoniae PCR Not detected Not detected, Invalid, Indeterminate 01/30/2017 5:53 AM [facility] Parainfluenza Virus 1 PCR Not detected Not detected, Invalid, Indeterminate 01/30/2017 5:53 AM [facility] Parainfluenza Virus 2 PCR Not detected Not detected, Invalid, Indeterminate 01/30/2017 5:53 AM [facility] Parainfluenza Virus 3 PCR Not detected Not detected, Invalid, Indeterminate 01/30/2017 5:53 AM [facility] Parainfluenza Virus 4 PCR Not detected Not detected, Invalid, Indeterminate 01/30/2017 5:53 AM [facility] Respiratory Syncytial Virus PCR Not detected Not detected, Invalid, Indeterminate 01/30/2017 5:53 AM [facility] Bordetella pertussis PCR Not detected Not detected, Invalid 01/30/2017 5:53 AM T [facility] Coronavirus PCR Not detected Not detected, Invalid, Indeterminate 01/30/2017 5:53 AM [facility] Microbiology NASOPHARYNGEAL SWAB / Unknown Collection / Unknown 01/29/2017 10:36 PM CDT 01/29/2017 10:42 PM CDT [facility]CROBIOLOG[facility] - 01/30/2017 5:53 AM CDT Coronavirus PCR detects the following coronaviruses: 229E, HKU1, NL63, OC43. Akira Romero MD LAB - MICROBIOLOGY O RDERAPOPEYE Performing Organization Address City/[facility]/ZIP Co de Phone Number [facility] [address] [place] [address], [facility] [phone] * CULTURE BLOOD (01/29/2017 6:59 PM CDT) Culture No growth day 5 CARLOS EDUARDO 02/04/2017 12:00 AM CDT [facility] Blood PERIPHERAL BLOOD / Unknown Venipuncture / Unknown 01/29/2017 6:59 PM CDT 01/29/2017 7:03 PM CDT Clinton Dorman DO LAB - MICROBIOLOGY O ASHLEIGH Performing Organization Address [facility] Co de Phone Number [facility] [address] [place] [address], [facility] [phone] * CULTURE BLOOD (01/29/2017 6:59 PM CDT) Culture No growth day 5 [facility] 02/04/2017 12:00 AM CDT [facility] Blood PERIPHERAL BLOOD / Unknown Venipuncture / Unknown 01/29/2017 6:59 PM CDT 01/29/2017 7:04 PM CDT Clinton Dorman DO LAB - MICROBIOLOGY O ASHLEIGH Performing Organization Address [facility]/ZIP Co de Phone Number [facility] [address] [place] [address], [facility] [phone] * CT CHEST PE (01/29/2017 5:23 PM [...] PM CDT) HCG Qual Urine Negative Negative [facility] POCT TESTING QC Verified Yes Yes HC POC T TESTING Urine URINE / Unknown 01/29/2017 4 :45 PM CDT Clinton Dorman DO LAB - POINT OF CARE ORDERABLES [facility] POCT TESTING [address] [phone] * (ABNORMAL) D-DIMER (01/29/2017 3:57 PM CDT) D-Dimer 0.71(H) 0.17 - 0.5 mg/L FEU 01/29/2017 4:14 PM CDT [facility] Blood BLOOD SPECIMEN / Unknown Venipuncture / Unknown 01/29/2017 3:57 PM CDT 01/29/2017 3:59 PM CDT Narrative [facility] - 01/29/2017 4:14 PM CDT [...] - COAGULATION OR DERABLES Performing Organization Address City/State/[facility] Co de Phone Number [facility] [address] [place] [address] * INFLUENZA A+B ANTIGEN RAPID (01/29/2017 1:38 PM CDT) [facility] Influenza A Antigen Negative Negative 01/29/2017 1:55 PM CDT [facility] Influenza B Antigen Negative Negative 01/29/2017 1:55 PM CDT [facility] Microbiology NASOPHARYNGEAL SWAB / Unknown Collection / Unknown 01/29/2017 1:38 PM CDT 01/29/2017 1:43 PM CDT Narrative [facility] - 01/29/2017 1:55 PM CDT [...] - MICROBIOLOGY O RDERABLES Performing Organization Address [facility] de Phone Number [facility] [address] [place] [address] * EKG 12-LEAD (01/29/2017 12:20 PM CDT) Pathologist [facility] Ventricular Rate 100 BPM [facility] MUSE Atrial Rate 100 BPM [facility] MUSE P-R Interval 84 ms HC MUSE QRS Duration ms 102 ms [facility] MUSE Q-T Interval ms 366 ms [facility] MUSE QTC Calculation (Bezet) 472 ms [facility] MUSE Calculated P [place] 26 degrees [facility] MUSE Calculated R [place] 48 degrees [facility] MUSE Calculated T [place] 33 degrees [facility] MUSE Interpretation EKG SINUS RHYTHM WITH SHORT WI NONSPECIFIC ST ABNORMALITY ABNORMAL ECG Confirmed by MD Lisandra, Toi ([id number]) on 01/30/2017 7:55:22 AM [facility] MUSE 01/29/2017 12:2 0 PM CDT 01/30/2017 7:55 AM CDT Clinton Dorman DO ECG ORDERABLES Performing Organization Address [facility] de Phone Number [facility] * LACTIC ACID BLOOD (01/29/2017 12:14 PM CDT) Pathologist [facility] Lactic Acid 1.7 0.7 - 2.1 mmol/L 01/29/2017 12:44 PM CDT [facility] Blood BLOOD SPECIMEN / Unknown Venipuncture / Unknown 01/29/2017 12:14 PM CDT 01/29/2017 12:27 PM CDT Clinton Dorman DO LAB - CHEMISTRY MORGAN YEE [facility] [address] [place] [address] * (ABNORMAL) COMPREHENSIVE METABOLIC PANEL (01/29/2017 12:14 PM CDT) [facility] Glucose 97 74 - 106 mg/dL 01/29/2017 12:44 PM CDT [facility] Sodium 137 136 - 145 mmol/L 01/29/2017 12:44 PM CDT [facility] Potassium 3.6 3.5 - 5.1 mmol/L 01/29/2017 12:44 PM CDT [facility] Chloride 108(H) 98 - 107 mmol/L 01/29/2017 12:44 PM CDT [facility] CO2 18(L) 22 - 31 mmol/L 01/29/2017 12:44 PM CDT [facility] Calcium 8.7 8.5 - 10.1 mg/dL 01/29/2017 12:44 PM CDT [facility] Anion Gap 11 8 - 16 mmol/L 01/29/2017 12:44 PM CDT [facility] BUN 13 7 - 21 mg/dL 01/29/2017 12:44 PM CDT [facility] Creatinine 0.93 0.50 - 1.30 mg/dL 01/29/2017 12:44 PM CDT [facility] Alkaline Phosphatase 70 38 - 126 U/L 01/29/2017 12:44 PM CDT [facility] ALT 21 13 - 61 U/L 01/29/2017 12:44 PM CDT [facility] AST 17 5 - 40 U/L 01/29/2017 12:44 PM CDT [facility] Protein Total 7.6 6.4 - 8.2 gm/dL 01/29/2017 12:44 PM CDT [facility] Albumin 3.3(L) 3.4 - 5.0 gm/dL 01/29/2017 12:44 PM CDT [facility] Bilirubin Total 0.5 0.2 - 1.0 mg/dL 01/29/2017 12:44 PM CDT [facility] eGFR by MDRD >60 >60 mL/min/1.7 3m2 01/29/2017 12:44 PM CDT [facility] eGFR by MDRD >60 >60 mL/min/1.7 3m2 01/29/2017 12:44 PM CDT [facility] Blood BLOOD SPECIMEN / Unknown Venipuncture / Unknown 01/29/2017 12:14 PM CDT 01/29/2017 12:27 PM CDT Clinton Dorman DO LAB - CHEMISTRY MORGAN YEE [facility] [address] [place] [address] * (ABNORMAL) CBC W AUTO DIFFERENTIAL (01/29/2017 12:14 PM CDT) WBC 13.4(H) 4.4 - 10.7 x10E9/L 01/29/2017 12:29 PM CDT [facility] WBC Corrected x10E9/L 01/29/2017 12:29 PM CDT [facility] RBC 4.60 3.80 - 5.20 x10E12/L 01/29/2017 12:29 PM CDT [facility] Hemoglobin 13.2 12.0 - 15.6 gm/dL 01/29/2017 12:29 PM CDT [facility] Hematocrit 40.8 35.9 - 45.5 % 01/29/2017 12:29 PM CDT [facility] MCV 88.7 80.7 - 98.3 fl 01/29/2017 12:29 PM CDT [facility] MCH 28.7 26.7 - 34.0 pg 01/29/2017 12:29 PM CDT [facility] MCHC 32.4 30.8 - 35.9 gm/dL 01/29/2017 12:29 PM CDT [facility] Platelet Count 356 153 - 416 x10E9/L 01/29/2017 12:29 PM CDT [facility] RDW-CV 13.2 12.1 - 14.9 % 01/29/2017 12:29 PM CDT [facility] MPV 8.7(L) 9.4 - 12.9 fl 01/29/2017 12:29 PM CDT [facility] Neutrophils % 79.3(H) 44.0 - 73.0 % 01/29/2017 12:29 PM CDT [facility] Lymphocytes % 13.3(L) 20.0 - 43.0 % 01/29/2017 12:29 PM CDT [facility] Monocytes % 4.3(L) 5.0 - 13.0 % 01/29/2017 12:29 PM CDT [facility] Eosinophils % 0.9 0.0 - 6.0 % 01/29/2017 12:29 PM CDT [facility] Basophils % 0.8 0.0 - 2.0 % 01/29/2017 12:29 PM CDT [facility] Immature Granulocytes 1.4(H) 0 - 1 % 01/29/2017 12:29 PM CDT [facility] Neutrophil Absolute 10.65(H) 2.01 - 7.14 x10E9/L 01/29/2017 12:29 PM CDT [facility] Lymphocytes Absolute 1.79 1.07 - 3.94 x10E9/L 01/29/2017 12:29 PM CDT [facility] Monocytes Absolute 0.58 0.26 - 1.07 x10E9/L 01/29/2017 12:29 PM CDT [facility] Eosinophils Absolute 0.12 0 - 0.47 x10E9/L 01/29/2017 12:29 PM CDT [facility] Basophils Absolute 0.11(H) 0 - 0.08 x10E9/L 01/29/2017 12:29 PM CDT [facility] Immature Granulocytes Absolute 0.19(H) 0.00 - 0.06 x10E9/L 01/29/2017 12:29 PM CDT [facility] nRBC Auto 0 /100 WBC 01/29/2017 12:29 PM CDT [facility] Blood BLOOD SPECIMEN / Unknown Venipuncture / Unknown 01/29/2017 12:14 PM CDT 01/29/2017 12:27 PM CDT Clinton Dorman DO LAB - HEMATOLOGY ORD ERABLES [facility] [address] [place] [address] * XR CHEST PA AND [...] patency. documented in this encounter Care Teams Head Cleaning Porter Relationship Specialty Start Date End Date Feliciano Dash MD [address] [facility] [address] [place] [address] PCP - General Internal Medicine 12/15/15 06/11/21 Jonathan Hartman, RN Towel Hemmer 07/14/15 documented as of this encounter
--- OUTSIDE RECORDS SUMMARY | 2024-04-29 20:11 | XMS_ITS | Encounter Summary ---
Author Organization [facility] Address [address] [facility] [address] Care Team Providers Care Physical Trainer Name Role Phone MinnieJonathan mckeon RN Unavailable [phone] Feliciano Dash MD Primary Care Provider [phone] Encounter Details Date Type Department Care Team (Late st Contact Info) Description 04/25/[address] [facility] - [address] [address] Armando Corona MD [address] [place] [phone] Gastritis, presence of bleeding unspecified, unspecified [...] added Carafate per request of patient. WM EMENT RIDE OPERATOR documented in this encounter Plan of Treatment Not on file documented as of this encounter Goals Goal Patient Goal Type Associated Problems Recent Progress Patient-Stated? Author Yearly PCP visit Lifestyle No Rukhsana Lazo MA documented as of this encounter Visit Diagnoses Diagnosis Gastritis, presence of bleeding unspecified, unspecified chronicity, unspecified gastritis type- Primary documented in this encounter Care Teams Physical Trainer Relationship Specialty Start Date End Date Feliciano Dash MD [address] [facility] [address] [facility] [address] [place] [address] PCP - General Internal Medicine 12/15/15 06/11/21 Jonathan Hartman RN Preservative Filler Machine Operator 07/14/15 documented as of this encounter
--- OUTSIDE RECORDS SUMMARY | 2024-04-29 20:11 | XMS_ITS | Encounter Summary ---
Author Organization [facility] Address [address] [facility] [place] [address] Care Team Providers Care Quality Analyst/Technical Writer Name Role Phone Minnie Jontahan Delaney RN Unavailable [phone] Feliciano Dash MD Primary Care Provider [phone] Reason for Visit * Reason Comments Refill Request Encounter Details Date Type Department Care Team (Late st Contact Info) Description 02/11/2017 Refill [facility] - [address] [address] Armando Corona MD [address] [place] [phone] Refill Request Social History Tobacco Use [...] on filedocumented in this encounter Care Teams Quality Analyst/Technical Writer Relationship Specialty Start Date End Date Feliciano Dash MD [address] [facility] [address] [facility] [address] [place] [address] PCP - General Internal Medicine 12/15/15 06/11/21 Jonathan Hartman, RN Rope Making Machine Operator 07/14/15 documented as of this encounter
--- OUTSIDE RECORDS SUMMARY | 2024-04-29 20:11 | XMS_ITS | Encounter Summary ---
Author Organization [facility] Address [address] [facility] [place] [place] [address] Care Team Providers Care Co Founder And Cto Name Role Phone Minnie Jonathan Delaney RN Unavailable [phone] Feliciano Dash MD Primary Care Provider [phone] Reason for Visit * Auth/Cert Specialty Diagnoses / Procedures Referred By Kaylynn phillips Referred To Contact Diagnoses Epigastric pain Epigastric pain Procedures ESOPHAGOGASTRODUODENOSCOPY (EGD) Referral ID Status Reason Start Date Expiration Date Visits Re quested Visits Authorized [id number] 1 1 Encounter Details Date Type Department Care Team (Latest Contact Info) Description 04/06/2016 9:00 AM CIRCULAR SAWYER HELPER - 04/06/2016 9:30 AM [facility] Surgery [facility] - Endoscopy Services [address] [place] [address] Armando Corona MD [address] [place] [address] [place] [phone] ESOPHAGOGASTRODUODENOSCOPY (EGD) Surgery Details Date/Time Status Location OR Service Patient Class Case Class Case Type Trauma Case? 04/06/2016 9:00 AM Posted [facility] ENDO Endo 05 Gastroenterology Surgery Day Care [...] Comments Blood Pressure 118/84 04/06/2016 10:45 AM CIRCULAR SAWYER HELPER Pulse 100 04/06/2016 10:50 AM CIRCULAR SAWYER HELPER Temperature 36.1 ??C (97 ??F) 04/06/2016 10:30 AM CIRCULAR SAWYER HELPER Respiratory Rate 25 04/06/2016 10:50 AM CIRCULAR SAWYER HELPER Oxygen Saturation 100% 04/06/2016 10:50 AM CIRCULAR SAWYER HELPER Inhaled Oxygen Concentration - - Weight 81.6 kg (180 lb) 04/06/2016 9:12 AM CIRCULAR SAWYER HELPER Height 167.6 cm (5' 6 ) 04/06/2016 9:12 AM CIRCULAR SAWYER HELPER Body Mass Index 29.05 04/06/2016 9:12 AM CIRCULAR SAWYER HELPER documented in this encounter Functional Status Functional [...] 04/06/2016 11:00 AM CST Neg h pylori ULAR SAWYER HELPER documented in this encounter H&P Notes * [...] MEDICAL PROBLEMS AND . Armando Corona MD ULAR SAWYER HELPER documented in this encounter Procedure Notes * Armando Corona MD - 04/06/2016 9:53 AM CSTAssociated Order(s): EGD EGD Grade A esophagitis Mild gastritis s/p bx Nl duodenum ULAR SAWYER HELPER documented in this encounter Plan of Treatment Not on file documented as of this encounter Goals Goal Patient Goal Type Associated Problems Recent Progress Patient-Stated? Author Yearly PCP visit Lifestyle No Rukhsana Lazo MA documented as of this encounter Procedures Procedure Name Priority Date/Time Associated Diagnosis Comments HELICOBACTER PYLORI UREASE (STL) STAT 04/06/2016 9:51 AM CIRCULAR SAWYER HELPER Epigastric pain ESOPHAGOGASTRODUODENOSCOPY ( EGD) BIOPSY 04/06/2016 9:30 AM CIRCULAR SAWYER HELPER Epigastric pain ESOPHAGOGASTRODUODENOSCOPY ( EGD) DIAGNOSTIC 04/06/2016 9:30 AM CIRCULAR SAWYER HELPER Epigastric pain EGD Routine 04/06/2016 9:19 AM CIRCULAR SAWYER HELPER HCG URINE QUALITATIVE - POIN T OF CARE Routine 04/06/2016 8:50 AM CIRCULAR SAWYER HELPER documented in this encounter Results * HELICOBACTER PYLORI UREASE (STL) (04/06/2016 9:51 AM CIRCULAR SAWYER HELPER) Helicobacter pylori Urease Initial Negative Negative 04/07/2016 11:49 AM CIRCULAR SAWYER HELPER [facility] Helicobacter pylori Urease Final Negative Negative 04/07/2016 11:49 AM CIRCULAR SAWYER HELPER [facility] Microbiology GASTRIC CONTENTS SPECIMEN / Unknown 04/06/2016 9:51 AM CIRCULAR SAWYER HELPER 04/06/2016 12:31 PM CIRCULAR SAWYER HELPER Armando Corona MD LAB - MICROBIOLOGY O RDERABLES [facility] [address] [place] [address] * EGD (04/06/2016 9:19 AM CIRCULAR SAWYER HELPER) Report Endoscopy POC __ _ Patient Name: [...] Procedure Code(s): ? --- Professional --- ? 89740, Esophagogastroduode noscopy, flexible, transoral; with biopsy, ? single or multiple ? --- Technical --- ? 25211, Esophagogastroduode noscopy, flexible, transoral; with biopsy, ? single or multiple Diagnosis Code(s): ? --- Professional --- ? K20.9, Esophagitis, unspecified ? K29.70, Gastritis, unspecified, without bleeding ? R10.9, Unspecified abdominal pain ? --- Technical --- ? K20.9, Esophagitis, unspecified ? K29.70, Gastritis, unspecified, without bleeding ? R10.9, Unspecified abdominal pain CPT copyright 2015 [employer]. All rights reserved. The codes documented in this report are preliminary and upon medical billing coder review may be revised to meet current compliance requirements. Armando Corona, 04/06/2016 9:52:47 AM This report has been signed electronically. Number of Addenda: 0 Note Initiated On: 04/06/2016 9:19 AM [facility] ENDOSCOPY 04/06/2016 9:19 AM CIRCULAR SAWYER HELPER Narrative Procedure Note Armando Corona MD - 04/06/2016 9:53 AM CST EGD Grade A esophagitis Mild gastritis s/p bx Nl duodenum Armando Corona MD GI PROCEDURE ORDERAB LES Performing Organization Address City/[facility] Co de Phone Number [facility] ENDOSCOPY * HCG URINE QUALITATIVE - POINT OF CARE (IP) (04/06/2016 8:50 AM CIRCULAR SAWYER HELPER) HCG Qual Urine Negative Negative [facility] POCT TESTING QC Verified Yes Yes [facility] POC T TESTING Urine URINE / Unknown 04/06/2016 8 :50 AM CIRCULAR SAWYER HELPER Armando Corona MD LAB - POINT OF CARE ORDERABLES Performing Organization Address [facility] Co de Phone Number [facility] POCT TESTING [address] [phone] documented in this encounter Visit Diagnoses Diagnosis [...] (GI) $ New Bag/Syringe 04/06/2016 9:18 AM CIRCULAR SAWYER HELPER 2 0 mL/hr documented in this encounter Active and Recently Administered Medications Times are shown in CIRCULAR SAWYER HELPER. Continuous Medication Order 04/04/2016 04/05/2016 04/06/2016 0.9% NaCl infusion at 20 mL/hr, Intravenous, CONTINUOUS, Starting on Sat04/06/16 at 0945, Until Sat04/06/16 at 1213, Pre-procedure (GI) 0918 ($ New Bag/Syri nge - Provider: Cheli Chun RN)[phone] (Anesthesia Volume Adjustment - Provider: Helen Adair APRN-PROFESSIONAL FEE CODER) documented in this encounter Care Teams Co Founder And Cto Relationship Specialty Start Date End Date Feliciano Dash MD [address] [facility] [address] [place] [address] PCP - General Internal Medicine 12/15/15 06/11/21 Jonathan Hartman RN Partition Notcher 07/14/15 documented as of this encounter
--- OUTSIDE RECORDS SUMMARY | 2024-04-29 20:11 | XMS_ITS | Encounter Summary ---
Author Organization [facility] Address [address] [facility] [place] [address] Care Team Providers Care Hat Brim And Crown Laminating Operator Name Role Phone MinnieJonathan mckeon RN Unavailable Feliciano Dash MD Primary Care Provider [phone] Encounter Details Date Type Department Care Team (Late st Contact Info) Description 06/12/2016 Orders Only [facility] - [address] [address] Armando Corona MD [address] [place] [phone] Gastritis, presence of bleeding unspecified, unspecified [...] well. She is requesting a refill. WM MENTAL IRON WORKER HELPER documented in this encounter Plan of Treatment Not on file documented as of this encounter Goals Goal Patient Goal Type Associated Problems Recent Progress Patient-Stated? Author Yearly PCP visit Lifestyle No Rukhsana Lazo MA documented as of this encounter Visit Diagnoses Diagnosis Gastritis, presence of bleeding unspecified, unspecified chronicity, unspecified gastritis type documented in this encounter Care Teams Hat Brim And Crown Laminating Operator Relationship Specialty Start Date End Date Feliciano Dash MD [address] [facility] [address] [place] [address] PCP - General Internal Medicine 12/15/15 06/11/21 Jonathan Hartman, RN Thermostat Repairer 07/14/15 documented as of this encounter
--- OUTSIDE RECORDS SUMMARY | 2024-04-29 20:11 | XMS_ITS | Encounter Summary ---
Author Organization [facility] Address [address] [place] [address] Care Team Providers Care Flasher Adjuster Name Role Phone Minnie Jonathan Delaney RN Unavailable [phone] Feliciano Dash MD Primary Care Provider [phone] Reason for Visit * Reason Comments Pain Flank right side - began y esterday - has hx of kidney stones Encounter Details Date Type Department Care Team (Late st Contact Info) Description 05/17/2016 3:46 PM GRAZING EXAMINER - 05/17/2016 7:49 PM GRAZING EXAMINER Emergency ER at [facility] [address] [place] [address] [phone] [place] [address] [facility] [address] Urinary tract infection with hematuria, [...] Comments Blood Pressure 123/77 05/17/2016 7:47 PM GRAZING EXAMINER Pulse 101 05/17/2016 7:47 PM GRAZING EXAMINER Temperature 36.9 ??C (98.5 ??F) 05/17/2016 7:00 PM CS T Respiratory Rate 16 05/17/2016 7:47 PM GRAZING EXAMINER Oxygen Saturation 99% 05/17/2016 7:47 PM GRAZING EXAMINER Inhaled Oxygen Concentration - - Weight 83.9 kg (185 lb) 05/17/2016 12:03 PM GRAZING EXAMINER Height 165.1 cm (5' 5 ) 05/17/2016 12:03 PM GRAZING EXAMINER Body Mass Index 30.79 05/17/2016 12:03 PM GRAZING EXAMINER documented in this encounter Functional Status Functional [...] Instructions* Eleno Mcclure, - 05/17/2016 7:36 PM GRAZING EXAMINER Images from the original note were not [...] Document Reviewed: 09/09/2013 ExitCare?? Patient Information ??2015 [employer]. This information is not intended to replace [...] Document Reviewed: 11/20/2012 ExitCare?? Patient Information ??2015 [employer]. This information is not intended to replace [...] Document Reviewed: 05/16/2012 ExitCare?? Patient Information ??2015 [employer]. This information is not intended to replace advice given to you by your health care provider. Make sure you discuss any questions you have with your health care provider. ING EXAMINER documented in this encounter Medications at Time [...] to car via wheelchair by this RN. ING EXAMINER * Debbie Young RN - 05/17/2016 7:38 PM CST Pt escorted to bathroom via wheelchair. ING EXAMINER * Debbie Young RN - 05/17/2016 7:[address] Mcclure to bedside to update pt on plan of care. ING EXAMINER * Debbie Young RN - 05/17/2016 7:17 PM CST Bedside report received from Indira Rao RN. Will assume care for pt at this time. Pt resting quietly with at bedside, complains of 0/10 pain at this time. Will continue to monitor. ING EXAMINER * Prerna Min RN - 05/17/2016 5:43 PM CST Antibiotics hung as ordered. Patient updated on plan of care. ING EXAMINER * Eleno Mcclure DO - 05/17/2016 4:30 PM CST Provider contact with the patient: 05/17/2016 16:30 Madalyn Walton [id number] [facility] EMERGENCY DEPARTMENT History Chief [...] 5 mg by mouth at bedtime ??? [id number] (FIORICET) 50-325-40 MG tablet 1 Tab every [...] % Lymph 20.8 20.0 - 43.0 % [place] 3.4 (L) 5.0 - 13.0 % Eos 0.6 0.0 - 6.0 % Baso 1.0 0.0 - 2.0 % Immature Grans 0.6 0 - 1 % Neutro Abs 6.68 2.01 - 7.14 x10E9/L Lymph Abs 1.88 1.07 - 3.94 x10E9/L [place] Abs 0.31 0.26 - 1.07 x10E9/L Eosin [...] Yellow, Dark Yellow Clarity UA Clear Specific [place] UA 1.020 1.005 - 1.030 pH UA [...] to follow-up with: Feliciano Dash MD [address] [address] [address] [facility] [address] [phone] Call in 1 day If symptoms worsen [place] [address] [facility] [address] Call in 1 day If symptoms worsen return to the emergency department Edgardo Baer MD [address] [facility] [address] [facility] [id number] In 1 day If symptoms worsen [...] accurateand complete. Dr. Mcclure, 05/17/2016 7:37 PM ING EXAMINER * Prerna Min RN - 05/17/2016 3:57 PM CST Patient into ED with c/o bilateral flank pain. Patient reports history of kidney stones. Patient reports her symptoms began yesterday and her PCP instructed her to come here. Patient denies any hematuria. Patient states frequency with urination. Report nausea, denies vomiting or diarrhea. VSS. Willcontinue to monitor patient. ING EXAMINER documented in this encounter Plan of Treatment Not on file documented as of this encounter Goals Goal Patient Goal Type Associated Problems Recent Progress Patient-Stated? Author Yearly PCP visit Lifestyle No Rkuhsana Lazo MA documented as of this encounter Procedures Procedure Name Priority Date/Time Associated Diagnosis Comments CT ABDOMEN PELVIS WO CONTRAST STAT 05/17/2016 1:00 PM GRAZING EXAMINER Flank pain URINALYSIS REFLEX MICROSCOPIC REFLEX CULTURE STAT 05/17/2016 12:49 PM GRAZING EXAMINER HCG URINE QUALITATIVE - POINT OF CARE STAT 05/17/2016 12:49 PM GRAZING EXAMINER CULTURE URINE STAT 05/17/2016 12:49 PM GRAZING EXAMINER CBC W AUTO DIFFERENTIAL STAT 05/17/2016 12:14 PM GRAZING EXAMINER COMPREHENSIVE METABOLIC PANEL STAT 05/17/2016 12:14 PM GRAZING EXAMINER documented in this encounter Results * CT RENAL STONE PROTOCOL (NO IV AND NO ORAL CONTRAST) (05/17/2016 1:00 PM GRAZING EXAMINER) Anatomical Region Laterality Modality Abdomen, Pelvis Computed Tomogra phy 05/17/2016 1:14 PM GRAZING EXAMINER Impressions 05/17/2016 1:19 PM GRAZING EXAMINER 1. Multiple bilateral renal calculi seen within the kidneys without evidence of hydronephrosis or hydroureter. The largest calculus on the right measures approximately 4 mm and the largest on the left approximately 5 mm. Narrative 05/17/2016 1:[address] abdomen and pelvis without contrast Technique: [...] ORDERABLES * CULTURE URINE (05/17/2016 12:49 PM GRAZING EXAMINER) Culture 10,000-50,000 CFU/mL urogenital adelso CARLOS EDUARDO 05/18/2016 3:24 PM GRAZING EXAMINER [facility] Urine URINE SPECIMEN OBTAINED BY CLEAN CATCH PROCEDURE / Unknown Collection / Unknown 05/17/2016 12:49 PM GRAZING EXAMINER 05/17/2016 12:56 PM GRAZING EXAMINER Eleno Mcclure DO LAB - MICROBIOLOGY O RDERABLES [facility] [address] [place] [phone] * HCG URINE QUALITATIVE - POINT OF CARE (IP) (05/17/2016 12:49 PM GRAZING EXAMINER) HCG Qual Urine Negative Negative [facility] POCT TESTING QC Verified Yes Yes [facility] POC T TESTING Urine URINE / Unknown 05/17/2016 1 2:49 PM GRAZING EXAMINER Eleno Mcclure DO LAB - POINT OF CARE ORDERABLES Performing Organization Address [facility]/ZIP Co de Phone Number [facility] POCT TESTING [address] [phone] * (ABNORMAL) URINALYSIS ROUTINE W/REFLEX TO CULTURE (05/17/2016 12:49 PM GRAZING EXAMINER) Color UA Yellow Straw, Yellow, Dark Yellow 05/17/2016 1:08 PM GRAZING EXAMINER [facility] Clarity UA Clear 05/17/2016 1:08 PM GRAZING EXAMINER [facility] Specific [place] UA 1.020 1.005 - 1.030 05/17/2016 1:08 PM GRAZING EXAMINER [facility] pH UA 6.5 5.0 - 8.0 pH 05/17/2016 1:08 PM GRAZING EXAMINER [facility] Protein UA Negative Negative 05/17/2016 1:08 PM GRAZING EXAMINER [facility] Blood UA Negative Negative 05/17/2016 1:08 PM GRAZING EXAMINER [facility] Leukocyte UA 2+(A) Negative 05/17/2016 1:08 PM GRAZING EXAMINER [facility] Nitrite UA Negative Negative 05/17/2016 1:08 PM GRAZING EXAMINER [facility] Glucose UA Negative Negative 05/17/2016 1:08 PM GRAZING EXAMINER [facility] Ketone UA Negative Negative 05/17/2016 1:08 PM GRAZING EXAMINER [facility] Bilirubin UA Negative Negative 05/17/2016 1:08 PM GRAZING EXAMINER [facility] Urobilinogen UA 0.2 0.1 - 1.0 EU/dL 05/17/2016 1:08 PM [facility] WBC UA Auto 5-10(A) 0-2, 2-5 # /hpf 05/17/2016 1:08 PM [facility] RBC UA Auto 2-5 0-2, 2-5 # /hpf 05/17/2016 1:08 PM [facility] Epithelial Cell UA Auto 5-10(A) 0-2, 2-5 # /hpf 05/17/2016 1:08 PM [facility] Bacteria UA Auto 1+(A) None seen 05/17/19 17 1:08 PM [facility] Reflex Status Culture to follow 05/17/2016 1:08 PM [facility] Urine URINE SPECIMEN OBTAINED BY CLEAN CATCH PROCEDURE / Unknown Collection / Unknown 05/17/2016 12:49 PM GRAZING EXAMINER 05/17/2016 12:56 PM [facility] Eleno Mcclure DO LAB - URINALYSIS ORD ERABLES [facility] [address] [place] [address] * (ABNORMAL) COMPREHENSIVE METABOLIC PANEL (05/17/2016 12:14 PM [facility]) Glucose 89 74 - 106 mg/dL 05/17/2016 12:36 PM [facility] Sodium 141 136 - 145 mmol/L 05/17/2016 12:36 PM [facility] Potassium 4.5 3.5 - 5.1 mmol/L 05/17/2016 12:36 PM [facility] Chloride 109(H) 98 - 107 mmol/L 05/17/2016 12:36 PM [facility] CO2 23 22 - 31 mmol/L 05/17/2016 12:36 PM [facility] Calcium 8.7 8.5 - 10.1 mg/dL 05/17/2016 12:36 PM [facility] Anion Gap 9 8 - 16 mmol/L 05/17/2016 12:36 PM [facility] BUN 14 7 - 21 mg/dL 05/17/2016 12:36 PM [facility] Creatinine 0.97 0.50 - 1.30 mg/dL 05/17/2016 12:36 PM [facility] Alkaline Phosphatase 72 38 - 126 U/L 05/17/2016 12:36 PM [facility] ALT 23 13 - 61 U/L 05/17/2016 12:36 PM [facility] AST 6 5 - 40 U/L 05/17/2016 12:36 PM [facility] Protein Total 7.3 6.4 - 8.2 gm/dL 05/17/2016 12:36 PM [facility] Albumin 3.5 3.4 - 5.0 gm/dL 05/17/2016 12:36 PM [facility] Bilirubin Total 0.3 0.2 - 1.0 mg/dL 05/17/2016 12:36 PM [facility] eGFR by MDRD >60 >60 mL/min/1.7 3m2 05/17/2016 12:36 PM [facility] eGFR by MDRD >60 >60 mL/min/1.7 3m2 05/17/2016 12:36 PM [facility] Blood BLOOD SPECIMEN / Unknown Venipuncture / Unknown 05/17/2016 12:14 PM GRAZING EXAMINER 05/17/2016 12:23 PM [facility] Eleno Mcclure DO LAB - CHEMISTRY MORGAN YEE [facility] [address] [place], [place] [id number] * (ABNORMAL) CBC W AUTO DIFFERENTIAL (05/17/2016 12:14 PM GRAZING EXAMINER) WBC 9.1 4.4 - 10.7 x10E9/L 05/17/2016 12:22 PM [facility] WBC Corrected x10E9/L 05/17/2016 12:22 PM [facility] RBC 4.70 3.80 - 5.20 x10E12/L 05/17/2016 12:22 PM [facility] Hemoglobin 13.2 12.0 - 15.6 gm/dL 05/17/2016 12:22 PM [facility] Hematocrit 41.3 35.9 - 45.5 % 05/17/2016 12:22 PM [facility] MCV 87.9 80.7 - 98.3 fl 05/17/2016 12:22 PM [facility] MCH 28.1 26.7 - 34.0 pg 05/17/2016 12:22 PM [facility] MCHC 32.0 30.8 - 35.9 gm/dL 05/17/2016 12:22 PM [facility] Platelet Count 305 153 - 416 x10E9/L 05/17/2016 12:22 PM [facility] RDW-CV 15.5(H) 12.1 - 14.9 % 05/17/2016 12:22 PM [facility] MPV 8.6(L) 9.4 - 12.9 fl 05/17/2016 12:22 PM [facility] Neutrophils % 73.6(H) 44.0 - 73.0 % 05/17/2016 12:22 PM [facility] Lymphocytes % 20.8 20.0 - 43.0 % 05/17/2016 12:22 PM [facility] Monocytes % 3.4(L) 5.0 - 13.0 % 05/17/2016 12:22 PM [facility] Eosinophils % 0.6 0.0 - 6.0 % 05/17/2016 12:22 PM [facility] Basophils % 1.0 0.0 - 2.0 % 05/17/2016 12:22 PM [facility] Immature Granulocytes 0.6 0 - 1 % 05/17/2016 12:22 PM [facility] Neutrophil Absolute 6.68 2.01 - 7.14 x10E9/L 05/17/2016 12:22 PM [facility] Lymphocytes Absolute 1.88 1.07 - 3.94 x10E9/L 05/17/2016 12:22 PM [facility] Monocytes Absolute 0.31 0.26 - 1.07 x10E9/L 05/17/2016 12:22 PM [facility] Eosinophils Absolute 0.05 0 - 0.47 x10E9/L 05/17/2016 12:22 PM [facility] Basophils Absolute 0.09(H) 0 - 0.08 x10E9/L 05/17/2016 12:22 PM [facility] Immature Granulocytes Absolute 0.05 0.00 - 0.06 x10E9/L 05/17/2016 12:22 PM [facility] nRBC Auto 0 /100 WBC 05/17/2016 12:22 PM GRAZING EXAMINER [facility] Blood BLOOD SPECIMEN / Unknown Venipuncture / Unknown 05/17/2016 12:14 PM GRAZING EXAMINER 05/17/2016 12:20 PM GRAZING EXAMINER Eleno Sears Mcclure LAB - HEMATOLOGY ORD ERABLES [facility] [address] [place] [address] documented in this encounter Visit Diagnoses Diagnosis [...] at 1730 $ Given 05/17/2016 5:34 PM GRAZING EXAMINER 1,000 mg 100 mL/hr HYDROmorphone (DILAUDID) injection 1 mg 1 mg, Intravenous, NOW, 1 dose, On Leydi 05/17/16 at 1845, Any ordered dose for greater than 1mg IV push of HYDROmorphone should be given incrementally $ Given 05/17/2016 7:05 PM GRAZING EXAMINER 1 mg ketorolac (TORADOL) injection 30 mg 30 mg, Intravenous, NOW, 1 dose, On Leydi 05/17/16 at 1700 $ Given 05/17/2016 5:10 PM GRAZING EXAMINER 30 mg morphine injection 4 mg 4 mg, Intravenous, NOW, 1 dose, On Leydi 05/17/16 at 1645 $ Given 05/17/2016 4:43 PM GRAZING EXAMINER 4 mg documented in this encounter Active and Recently Administered Medications Times are shown in GRAZING EXAMINER. Scheduled Medication Order 05/15/2016 05/16/2016 05/17/2016 [id number] [...] 2049 documented in this encounter Care Teams Flasher Adjuster Relationship Specialty Start Date End Date Feliciano Dash MD [address] [facility] [address] [place] [phone] PCP - General Internal Medicine 12/15/15 06/11/21 Jonathan Hartman RN Manager Of Patient 07/14/15 documented as of this encounter
--- OUTSIDE RECORDS SUMMARY | 2024-04-29 20:12 | XMS_ITS | Encounter Summary ---
Author Organization [facility] Address [address] [place] [address] Care Team Providers Care Relations Director Name Role Phone Jonathan Hartman Rhett RN Unavailable [phone] Reason for Visit * Reason Comments Pain Abdominal onset yesterday; lef t upper and lower;constant cramping; nausea/diarrhea; hx of diverticulitis, ulcers, kidney stones Pain Flank left sided * Auth/Cert Specialty Diagnoses / Procedures Referred By Contac t Referred To Contact Emergency Room [facility] Emergency Dept [address] [place] [id number] Referral ID Status Reason Start Date Expiration Date Visits Re quested Visits Authorized [id number] 09/28/2015 03/26/2016 1 Encounter Details Date Type Department Care Team (Late st Contact Info) Description 08/27/2015 5:10 PM CDT - 08/27/2015 11:24 PM CDT Emergency ER at [facility] [address] [place] [id number] Colton Caballero MD [address] [place] [address] [place] [address] Chronic abdominal pain (Primary Dx); [...] sitting while you are resting. ?? Take [id number] or prescription medicines only as directed by your caregiver. SEEK IMMEDIATE MEDICAL CARE IF: ?? You have weakness or numbness in one of your legs or feet. ?? You have trouble controlling your bladder or bowels. ?? You have nausea, vomiting, abdominal pain, shortness of breath, or fainting. Document Released: 05/16/2005 Document Revised: 06/30/2012 Document Reviewed: 03/22/2012 ExitCare?? Patient Information ??2013 [employer]. documented in this encounter Medications at Time [...] with the patient: 08/27/2015 20:28 Madalyn Walton [id number] [facility] EMERGENCY DEPARTMENT History Chief Complaint Patient [...] Reported on 08/23/2015) 30 Tab 0 ??? juzfqtxzqr-xtcxaiphxaqlm-eyjxaplb (FIORICET) 50-325-40 MG tablet Take 1 Tab [...] 55.4 44.0-73.0 % Lymph 36.4 20.0-43.0 % Mclennan 6.1 5.0-13.0 % Eos 0.6 0.0-6.0 % Baso 0.9 0.0-2.0 % Immature Grans 0.6 0-1 % Neutro Abs 4.89 2.01-7.14 x10E9/L Lymph Abs 3.21 1.07-3.94 x10E9/L Mclennan Abs 0.54 0.26-1.07 x10E9/L Eosin Abs 0.05 [...] Yellow, Dark Yellow Clarity UA Clear Specific [place] UA 1.011 1.005-1.030 pH UA 7.0 5.0-8.0 [...] - 220 U/L 08/27/2015 7:11 PM CDT [facility] Blood BLOOD SPECIMEN / Unknown Venipuncture / Unknown 08/27/2015 6:11 PM CDT 08/27/2015 6:14 PM CDT Colton Caballero MD LAB - CHEMISTRY ORDERABLES [facility] [address] [place] [address] * (ABNORMAL) COMPREHENSIVE METABOLIC PANEL (08/27/2015 6:11 PM CDT) Glucose 83 74 - 106 mg/dL 08/27/2015 6:31 PM CDT [facility] Sodium 137 136 - 145 mmol/L 08/27/2015 6:31 PM CDT [facility] Potassium 3.9 3.5 - 5.1 mmol/L 08/27/2015 6:31 PM CDT [facility] Chloride 109(H) 98 - 107 mmol/L 08/27/2015 6:31 PM CDT [facility] CO2 19(L) 22 - 31 mmol/L 08/27/2015 6:31 PM CDT [facility] Calcium 9.2 8.5 - 10.1 mg/dL 08/27/2015 6:31 PM CDT [facility] Anion Gap 9 5 - 20 mmol/L 08/27/2015 6:31 PM CDT [facility] BUN 12 7 - 21 mg/dL 08/27/2015 6:31 PM CDT [facility] Creatinine 0.94 0.50 - 1.30 mg/dL 08/27/2015 6:31 PM CDT [facility] Alkaline Phosphatase 85 38 - 126 U/L 08/27/2015 6:31 PM CDT [facility] ALT 49 12 - 78 U/L 08/27/2015 6:31 PM CDT [facility] AST 18 5 - 40 U/L 08/27/2015 6:31 PM CDT [facility] Protein Total 8.0 6.4 - 8.2 gm/dL 08/27/2015 6:31 PM CDT [facility] Albumin 4.1 3.4 - 5.0 gm/dL 08/27/2015 6:31 PM CDT [facility] Bilirubin Total 0.3 0.2 - 1.0 mg/dL 08/27/2015 6:31 PM CDT [facility] eGFR by MDRD >60 >60 mL/min/1.7 3m2 08/27/2015 6:31 PM CDT [facility] eGFR by MDRD >60 >60 mL/min/1.7 3m2 08/27/2015 6:31 PM CDT [facility] Blood BLOOD SPECIMEN / Unknown Venipuncture / Unknown 08/27/2015 6:11 PM CDT 08/27/2015 6:14 PM CDT Colton Caballero MD LAB - CHEMISTRY ORDERABLES [facility] [address] [place] [address] * (ABNORMAL) CBC W AUTO DIFFERENTIAL (08/27/2015 6:11 PM CDT) WBC 8.8 4.4 - 10.7 x10E9/L 08/27/2015 6:16 PM CDT [facility] WBC Corrected x10E9/L 08/27/2015 6:16 PM CDT [facility] RBC 5.32(H) 3.80 - 5.20 x10E12/L 08/27/2015 6:16 PM CDT [facility] Hemoglobin 15.2 12.0 - 15.6 gm/dL 08/27/2015 6:16 PM CDT [facility] Hematocrit 44.8 35.9 - 45.5 % 08/27/2015 6:16 PM CDT [facility] MCV 84.2 80.7 - 98.3 fl 08/27/2015 6:16 PM CDT [facility] MCH 28.6 26.7 - 34.0 pg 08/27/2015 6:16 PM CDT [facility] MCHC 33.9 30.8 - 35.9 gm/dL 08/27/2015 6:16 PM CDT [facility] Platelet Count 326 153 - 416 x10E9/L 08/27/2015 6:16 PM CDT [facility] RDW-CV 14.8 12.1 - 14.9 % 08/27/2015 6:16 PM CDT [facility] MPV 8.8(L) 9.4 - 12.9 fl 08/27/2015 6:16 PM CDT [facility] Neutrophils % 55.4 44.0 - 73.0 % 08/27/2015 6:16 PM CDT [facility] Lymphocytes % 36.4 20.0 - 43.0 % 08/27/2015 6:16 PM CDT [facility] Monocytes % 6.1 5.0 - 13.0 % 08/27/2015 6:16 PM CDT [facility] Eosinophils % 0.6 0.0 - 6.0 % 08/27/2015 6:16 PM CDT [facility] Basophils % 0.9 0.0 - 2.0 % 08/27/2015 6:16 PM CDT [facility] Immature Granulocytes 0.6 0 - 1 % 08/27/2015 6:16 PM CDT [facility] Neutrophil Absolute 4.89 2.01 - 7.14 x10E9/L 08/27/2015 6:16 PM CDT [facility] Lymphocytes Absolute 3.21 1.07 - 3.94 x10E9/L 08/27/2015 6:16 PM CDT [facility] Monocytes Absolute 0.54 0.26 - 1.07 x10E9/L 08/27/2015 6:16 PM CDT [facility] Eosinophils Absolute 0.05 0 - 0.47 x10E9/L 08/27/2015 6:16 PM CDT [facility] Basophils Absolute 0.08 0 - 0.08 x10E9/L 08/27/2015 6:16 PM CDT [facility] Immature Granulocytes Absolute 0.05 0.00 - 0.06 x10E9/L 08/27/2015 6:16 PM CDT [facility] nRBC Auto 0 /100 WBC 08/27/2015 6:16 PM CDT [facility] Blood BLOOD SPECIMEN / Unknown Venipuncture / Unknown 08/27/2015 6:11 PM CDT 08/27/2015 6:14 PM CDT Colton Caballero MD LAB - HEMATOLOG Y ORDERABLES [facility] [address] [place] [address] * CULTURE URINE (08/27/2015 5:51 PM CDT) Culture <10,000 CFU/mL normal urogenital adelso CARLOS EDUARDO 08/29/2015 11:48 AM CDT [facility] Urine URINE SPECIMEN OBTAINED BY CLEAN CATCH PROCEDURE / Unknown 08/27/2015 5:51 PM CDT 08/27/2015 5:57 PM CDT Yulia Villafana MD LAB - MICROBIOLOGY O RDERABLES Performing Organization Address City/[facility]/ZIP Co de Phone Number [facility] [address] [phone] * HCG URINE QUALITATIVE - POINT OF CARE (IP) (08/27/2015 5:51 PM CDT) HCG Qual Urine Negative Negative [facility] POCT TESTING QC Verified Yes Yes [facility] POC T TESTING Urine specimen (specimen) URINE / Unknown 08/27/2015 5:51 PM CDT Colton Caballero MD LAB - POINT OF CARE ORDERABLES Performing Organization Address [facility]/ZIP Co de Phone Number [facility] POCT TESTING [address] [phone] * (ABNORMAL) URINALYSIS ROUTINE W/REFLEX TO CULTURE (08/27/2015 5:51 PM CDT) Color UA Yellow Straw, Yellow, Dark Yellow 08/27/2015 6:02 PM CDT [facility] Clarity UA Clear 08/27/2015 6:02 PM CDT [facility] Specific [place] UA 1.011 1.005 - 1.030 08/27/2015 6:02 PM CDT [facility] pH UA 7.0 5.0 - 8.0 pH 08/27/2015 6:02 PM CDT [facility] Protein UA Negative Negative 08/27/2015 6:02 PM CDT [facility] Blood UA 2+(A) Negative 08/27/2015 6:02 PM CDT [facility] Leukocyte UA Trace(A) Negative 08/27/2015 6:02 PM CDT [facility] Nitrite UA Negative Negative 08/27/2015 6:02 PM CDT [facility] Glucose UA Negative Negative 08/27/2015 6:02 PM CDT [facility] Ketone UA Negative Negative 08/27/2015 6:02 PM CDT [facility] Bilirubin UA Negative Negative 08/27/2015 6:02 PM CDT [facility] Urobilinogen UA 0.2 0.1 - 1.0 EU/dL 08/27/2015 6:02 PM CDT [facility] WBC UA Auto 2-5 0-2, 2-5 # /hpf 08/27/2015 6:02 PM CDT [facility] RBC UA Auto 5-10(A) 0-2, 2-5 # /hpf 08/27/2015 6:02 PM CDT [facility] Epithelial Cell UA Auto 0-2 0-2, 2-5 # /hpf 08/27/2015 6:02 PM CDT [facility] Hyaline Casts UA Auto 2-5(A) 0 - 2 #/lpf 08/27/2015 6:02 PM CDT [facility] Reflex Status Culture to follow 08/27/2015 6:02 PM CDT [facility] Urine URINE SPECIMEN OBTAINED BY CLEAN CATCH PROCEDURE / Unknown 08/27/2015 5:51 PM CDT 08/27/2015 5:57 PM CDT Colton Caballero MD LAB - URINALYSI S ORDERABLES Performing Organization Address City/State/[facility] Co de Phone Number [facility] [address], [place] [id number] documented in this encounter Visit Diagnoses Diagnosis [...] EMT-P) documented in this encounter Care Teams Relations Director Relationship Specialty Start Date End Date Jonathan Hartman RN [employer] 07/14/15 documented as of this encounter
--- OUTSIDE RECORDS SUMMARY | 2024-04-29 20:12 | XMS_ITS | Encounter Summary ---
Author Organization [facility] Address [address] [place] [address] Care Team Providers Care Water Valve Mechanic Name Role Phone Jonathan Hartman RN Unavailable [phone] Reason for Visit * Reason Comments Pain Abdominal c/o periumbilical pa in x 3 days. Black diarrhea, increased pain today. Nausea. No vomiting. * Auth/Cert Specialty Diagnoses / Procedures Referred By Kaylynn phillips Referred To Contact Diagnoses Acute pancreatitis, unspecified pancreatitis type Referral ID Status Reason Start Date Expiration Date Visits Re quested Visits Authorized [id number] 1 1 Encounter Details Date Type Department Care Team (Latest Contact Info) Description 08/03/2015 7:30 AM CDT - 08/03/2015 8:00 AM CDT Surgery [facility] - Endoscopy Services [address] [place] [address] Armando Corona MD [address] [place] [address] [address] [place] [address] ESOPHAGOGASTRODUODENOSCOPY (EGD) Surgery Details Date/Time Status Location OR Service Patient Class Case Class Case Type Trauma Case? 08/03/2015 7:30 AM Posted [facility] Endo 02 Gastroenterology Inpatient Elective [...] daily as needed for Anxiety Chucho Hinton jzcpxhctcu-ckuhemnijqzfb-swfksuac 50-325-40 MG tablet Commonly known as: FIORICET [...] Answer Comments Your discharge diagnosis is Diverticulitis [430143] Follow up with Primary Care Provider (PCP) [...] understood by pt and scripts filled by [facility]. Pt discharged home. * Chucho Hinton [...] tablet 0.25 mg, Oral, TID PRN ?? qgiyuzgkms-zubiiwcgiowre-jypjzlys (FIORICET) 50-325-40 MG tablet 1 Tab, Oral, [...] tablet 650 mg, Oral, q4h PRN ?? ozszvhfmry-umwjezleqskci-eradnskb (FIORICET) 50-325-40 MG tablet 1 Tab, Oral, [...] tablet 650 mg, Oral, q4h PRN ?? jcexkozhkb-rvlqpfjalrgxs-pitllfsn (FIORICET) 50-325-40 MG tablet 1 Tab, Oral, [...] liquid diet. Continues c/o abdominal pain, refuses Webb, states Webb doesn't really help her. Pt wants to wait until Dilaudid is due again. * Chari Fontenot RN - 08/03/2015 5:34 AM CDT Shift summary: abdominal pain overnight treated with Webb and Dilaudid. Per pt pain never completely gone but reaches tolerable level. Npo for procedure this am, consent in chart. * Mary Castanon RN - 08/02/2015 7:29 PM CDT Shift highlights: VSS. C/o abdominal pain throughout the day. Dilaudid and Webb given as ordered. C/o migraine once today. [...] Contact Information Primary Emergency Contact: Toi Smith [facility] Relation: Significant other Anticipated Discharge [...] needs please contact: Madalyn Medina RN CM [phone]. Slide Maker Name/Phone number: Madalyn Eschmann, RN * Jaky [...] Oral q4h PRN Hari Niño MD ??? pdfqjhnpbh-wfmvjsdqbcdba-yjaujfoh (FIORICET) 50-325-40 MG tablet 1 Tab 1 [...] Oral q4h PRN Hari Niño MD ??? lqvvmmkify-ssroxpdebnfhw-hyopmuel (FIORICET) 50-325-40 MG tablet 1 Tab 1 [...] results for input(s): MAGMGDL in the last 12792 hours. No results for input(s): PHOS in the last 26082 hours. No results for input(s): AMYLASE in the last 89847 hours. No results for input(s): PHART, MDT8QLA, PO2ART, Q5ZAGLBY, BEART, FIO2 in the last 67184 hours. Invalid input(s): DFN8FIH No results for input(s): BNP in the last 18510 hours. Recent Labs Component Name 07/14/15 1343 CDIFFTOXINAB Negative No results for input(s): HGBA1C in the last 92811 hours. No results for input(s): INR in the last 84769 hours. Recent Labs Component Name 08/02/15 1002 CHOL 184 TRIG 156* HDL 43 LDLCALC 110 No results for input(s): PT in the last 67884 hours. No results for input(s): PTT in the last 68608 hours. No results for input(s): T3FREE in the last 80555 hours. No results for input(s): T4FREE in the last 56641 hours. No results for input(s): TSH in the last 71117 hours. Recent Labs Component Name 08/01/15 193 [...] CDTAssociated Order(s): IP CONSULT TO PASTORAL CARE Flight Data Technician support to the patient was requested/provided. * [...] Oral q4h PRN Hari Niño MD ??? wyftinthxd-lpdtcjebkblfx-zrlohyad (FIORICET) 50-325-40 MG tablet 1 Tab 1 [...] (TYLENOL) tablet 650 mg, Oral, q4h PRN turncqgwic-rpjwdhmksivzp-gzotjydy (FIORICET) 50-325-40 MG tablet 1 Tab, Oral, [...] results for input(s): INR in the last 87949 hours. No results for input(s): AMYLASE in the last 51115 hours. Recent Labs Component Name 08/01/15 1850 [...] you have further questions. Armando Corona MD [facility], Gastroenterology South Division [facility] office: [phone] Exchange: [phone] documented in this encounter Nursing Notes * [...] with the patient: 08/01/2015 18:48 Madalyn Walton 555504 [facility] EMERGENCY [facility]PARTMENT History Chief [...] 54.0 44.0-73.0 % Lymph 36.4 20.0-43.0 % Loup 7.1 5.0-13.0 % Eos 1.0 0.0-6.0 % Baso 1.0 0.0-2.0 % Immature Grans 0.5 0-1 % Neutro Abs 5.03 2.01-7.14 x10E9/L Lymph Abs 3.39 1.07-3.94 x10E9/L Loup Abs 0.66 0.26-1.07 x10E9/L Eosin Abs 0.09 [...] Yellow, Dark Yellow Clarity UA Clear Specific [place] UA 1.019 1.005-1.030 pH UA 6.5 5.0-8.0 [...] structures are otherwise normal. ?? PRELIMINARY REPORT [facility] Patient Name: ISABEL FROST Age: 28 Patient MR NO: [id number] Referring Doctor: Dr. Dickerson Patient Location: Emergency [...] No large ovarian cysts To Talk to Radiologist([phone] or([phone] Leeroy Ching M.D. Electronically Signed Progress Notes 6:49 PM Plan: Labs, CT abdomen/pelvis. 9:35 PM Call out to IPC. 9:36 PM I reevaluated the patient???s medical condition, comfort, and provided a care update. Informed patient and family of admission. 10:33 PM I discussed with Dr. Romero ([facility]) all pertinent aspects of the case including [...] 12.1 - 14.9 % 08/05/2015 7:28 AM [facility] MPV 8.6(L) 9.4 - 12.9 fl 08/05/2015 7:28 AM [facility] Neutrophils % 39.6(L) 44.0 - 73.0 % 08/05/2015 7:28 AM T [facility] Lymphocytes % 52.4(H) 20.0 - 43.0 % 08/05/2015 7:28 AM [facility] Monocytes % 5.5 5.0 - 13.0 % 08/05/2015 7:28 AM [facility] Eosinophils % 1.1 0.0 - 6.0 % 08/05/2015 7:28 AM [facility] Basophils % 0.9 0.0 - 2.0 % 08/05/2015 7:28 AM [facility] Immature Granulocytes 0.5 0 - 1 % 08/05/2015 7:28 AM [facility] Neutrophil Absolute 1.73(L) 2.01 - 7.14 x10E9/L 08/05/2015 7:28 AM [facility] Lymphocytes Absolute 2.29 1.07 - 3.94 x10E9/L 08/05/2015 7:28 AM [facility] Monocytes Absolute 0.24(L) 0.26 - 1.07 x10E9/L 08/05/2015 7:28 AM T [facility] Eosinophils Absolute 0.05 0 - 0.47 x10E9/L 08/05/2015 7:28 AM T [facility] Basophils Absolute 0.04 0 - 0.08 x10E9/L 08/05/2015 7:28 AM T [facility] Immature Granulocytes Absolute 0.02 0.00 - 0.06 x10E9/L 08/05/2015 7:28 AM T [facility] nRBC Auto 0 /100 WBC 08/05/2015 7:28 AM CDT [facility] Blood BLOOD SPECIMEN / Unknown Lab Venipuncture / Unknown 08/05/2015 7:09 AM CDT 08/05/2015 7:21 AM CDT Armando Corona MD LAB - HEMATOLOGY ORD ERABLES Performing Organization Address [facility] de Phone Number [facility] [address] [phone] * HEMOGLOBIN (08/04/2015 11:16 AM CDT) Hemoglobin 12.6 12.0 - 15.6 gm/dL 08/04/2015 11:28 AM CDT [facility] Blood BLOOD SPECIMEN / Unknown Lab Venipuncture / Unknown 08/04/2015 11:16 AM CDT 08/04/2015 11:22 AM CDT Armando Corona MD LAB - HEMATOLOGY ORD [place] Performing Organization Address [facility] de Phone Number [facility] [address] [place] [address] * GROSS + MICRO EXAM (STL) (08/04/2015 9:31 AM CDT) Case Report Surgical Pathology Report ? Case: [id number] ? Authorizing Provider: ??Armando Corona MD ? Collected: ? 08/04/2015 09:31 AM ? Ordering Location: ? [facility] ?Received: ?08/04/2015 12:25 PM ? Pathologist: ? Kamilla Bustamante MD ? Specimen: ?Polyp Descending, Descending colon polyp ? 08/05/2015 11:25 AM CDT [facility] Final Diagnosis 1. ??Descending colon, polyp, biopsy: -- ??Hyperplastic polyp SR/alj 08/05/2015 11:25 AM CDT [facility] [...] not seen. SR/alj 08/05/2015 11:25 AM CDT [facility] Pathology/Cytolo gy POLYP / Unknown 08/04/2015 9:31 AM CDT 08/04/2015 12:25 PM CDT Armando Corona MD LAB - PATHOLOGY/CYTO LOGY ORDERABLES Performing Organization Address City/State/[facility] Phone Number [facility] [address] [place] [address] * ENDOSCOPY, COLON, DIAGNOSTIC (08/04/2015 [...] Procedure Code(s): ? --- Professional --- ? 76278, Colonoscopy, flexible; with removal of tumor(s), polyp(s), or ? other lesion(s) by snare technique ? --- Technical --- ? 36437, Colonoscopy, flexible; with removal of tumor(s), polyp(s), [...] in this report are preliminary and upon physician coder review may be revised to meet [...] Case Report Surgical Pathology Report ? Case: [id number] ? Authorizing Provider: ??Armando Corona MD ? Collected: ? 08/03/2015 07:54 AM ? Ordering Location: ? [facility] ?Received: ?08/03/2015 12:09 PM ? Pathologist: ? Kamilla Bustamante MD ? Specimen: ?Gastric Biopsy ? 08/04/2015 10:17 AM CDT [facility] Final Diagnosis 1. ??Gastric biopsy: -- ??Chronic gastritis -- ??H. pylori stain negative for bacterial organisms /zoey 08/04/2015 10:17 AM CDT [facility] Gross Description The specimen is received fixed in formalin in 1 container labeled with the patient's name, and gastric biopsy and contains three soft baird-yellow tissue fragments each measuring 0.3 cm in greatest dimension. The specimen is strained through a mesh bag and submitted in toto in cassette A1. JOVANNA/zoey 08/04/2015 10:17 AM CDT [facility] Microscopic Description Microscopic examination reveals gastric antrum and body mucosal fragments with patchy chronic gastritis. Metaplasia, dysplasia, malignancy and granulomas are not seen. H. pylori stain is negative for bacterial organisms. All of the stain(s), control slide(s) and test tissue slide(s) were judged as technically acceptable. /[facility] 08/04/2015 10:17 AM CDT [facility] Pathology/Cytolo gy GASTRIC BIOPSY SPECIMEN / Unknown 08/03/2015 7:54 AM CDT 08/03/2015 12:09 PM CDT Armando Corona MD LAB - PATHOLOGY/CYTO LOGY ORDERABLES [facility] [address] [place], [place] [id number] * EGD (08/03/2015 7:24 AM CDT) Report [...] (Doctor), Roxi Bennett, ANTHONY, Sona Dove, ? Tobacco Roller Patient Profile: ?? 40F pmh depression, arthritis, [...] Procedure Code(s): ? --- Professional --- ? 48221, Esophagogastroduod enoscopy, flexible, transoral; with biopsy, ? single or multiple ? --- Technical --- ? 06127, Esophagogastroduod enoscopy, flexible, transoral; with biopsy, ? [...] in this report are preliminary and upon physician coder review may be revised to meet [...] - CHEMISTRY MORGAN YEE Performing Organization Address [facility] Co de Phone Number [facility] [address] [place] [address] * CULTURE STOOL+ E COLI SHIGA-LIKE TOXIN (08/02/2015 4:51 PM CDT) Culture No growth Salmonella, Shigella, Campylobacter , E. coli 0157:h7 or Yersinia CARLOS EDUARDO 08/04/2015 6:27 AM CDT [facility] Culture Negative E. coli Shiga-like toxin (NM) CARLOS EDUARDO 08/04/2015 6:27 AM CDT [facility] Stool STOOL SPECIMEN / Unknown Collection / Unknown 08/02/2015 4:51 PM CDT 08/02/2015 4:56 PM CDT Chucho Hinton MD LAB - MICROBIOLOGY O [place] Performing Organization Address City/[facility]/ZIP Co de Phone Number [facility] [address] [phone] * (ABNORMAL) LIPID PROFILE (08/02/2015 10:02 AM [...] - CHEMISTRY MORGAN YEE Performing Organization Address [facility] Co de Phone Number [facility] [address] [place] [phone] * ALCOHOL ETHYL BLOOD (08/02/2015 10:02 AM [...] - CHEMISTRY MORGAN YEE Performing Organization Address [facility] Co de Phone Number [facility] [address] [place] [address] * HGB HCT PANEL (08/02/2015 10:02 AM CDT) Hemoglobin 12.3 12.0 - 15.6 gm/dL 08/02/2015 10:37 AM CDT [facility] Hematocrit 37.6 35.9 - 45.5 % 08/02/2015 10:37 AM CDT [facility] Blood BLOOD SPECIMEN / Unknown Lab Venipuncture / Unknown 08/02/2015 10:02 AM CDT 08/02/2015 10:13 AM CDT Akira Romero MD LAB - HEMATOLOGY [place] Performing Organization Address [facility] Co de Phone Number [facility] [address] [place] [address] * CT ABDOMEN AND PELVIS WITH IV [...] adelso CARLOS EDUARDO 08/03/2015 9:25 AM CDT [facility] Urine URINE SPECIMEN OBTAINED BY CLEAN CATCH PROCEDURE / Unknown Collection / Unknown 08/01/2015 7:35 PM CDT 08/01/2015 7:39 PM CDT Hari Niño MD LAB - MICROBIOLOGY O RDERABLES Performing Organization Address City/[facility]/ZIP Co de Phone Number [facility] [address] [phone] * (ABNORMAL) URINALYSIS MICROSCOPIC ONLY W/REFLEX CULTURE (08/01/2015 7:35 PM CDT) Pathologist [facility] Bacteria UA 1+(A) None Seen 08/01/2015 8:02 [...] - URINALYSIS ORD ERABLES Performing Organization Address City/[facility]/ZIP Co de Phone Number [facility] [address] [place] [address] * (ABNORMAL) URINALYSIS ROUTINE W/REFLEX TO CULTURE (08/01/2015 7:35 PM CDT) Color UA Yellow Straw, Yellow, Dark Yellow 08/01/2015 7:45 PM CDT [facility] Clarity UA Clear 08/01/2015 7:45 PM CDT [facility] Specific [place] UA 1.019 1.005 - 1.030 08/01/2015 7:45 [...] - URINALYSIS ORD ERABLES [facility] [address] [place] [address] * TYPE + SCREEN PANEL (08/01/2015 7:19 PM CDT) ABO A 08/01/2015 8:23 PM CDT [facility] BLOOD BANK ORD ERABLES Performing Organization Address [facility] Co de Phone Number [facility] [address] [place] [address] * (ABNORMAL) LIPASE BLOOD (08/01/2015 6:50 PM CDT) Lipase 681(H) 10 - 220 U/L 08/01/2015 7:14 PM CDT [facility] Blood BLOOD SPECIMEN / Unknown Venipuncture / Unknown 08/01/2015 6:50 PM CDT 08/01/2015 6:54 PM CDT Hari Niño MD LAB - CHEMISTRY MORGAN YEE Performing Organization Address [facility] Co de Phone Number [facility] [address] [place] [address] * (ABNORMAL) COMPREHENSIVE METABOLIC PANEL (08/01/2015 6:50 [...] Niño MD LAB - CHEMISTRY MORGAN YEE [facility] Organization Address City/State/[facility] Co de Phone Number [facility] [address] [place] [address] * (ABNORMAL) CBC W AUTO DIFFERENTIAL (08/01/2015 6:50 PM CDT) [facility] WBC 9.3 4.4 - 10.7 x10E9/L 08/01/2015 6:57 PM CDT [facility] WBC Corrected x10E9/L 08/01/2015 6:57 PM CDT [facility] RBC 5.35(H) 3.80 - 5.20 x10E12/L 08/01/2015 6:57 PM CDT [facility] Hemoglobin 15.1 12.0 - 15.6 gm/dL 08/01/2015 6:57 PM [facility] Hematocrit 44.9 35.9 - 45.5 % 08/01/2015 6:57 PM [facility] MCV 83.9 80.7 - 98.3 fl 08/01/2015 6:57 PM [facility] MCH 28.2 26.7 - 34.0 pg 08/01/2015 6:57 PM [facility] MCHC 33.6 30.8 - 35.9 gm/dL 08/01/2015 6:57 PM [facility] Platelet Count 339 153 - 416 x10E9/L 08/01/2015 6:57 PM [facility] RDW-CV 15.0(H) 12.1 - 14.9 % 08/01/2015 6:57 PM [facility] MPV 8.3(L) 9.4 - 12.9 fl 08/01/2015 6:57 PM [facility] Neutrophils % 54.0 44.0 - 73.0 % 08/01/2015 6:57 PM T [facility] Lymphocytes % 36.4 20.0 - 43.0 % 08/01/2015 6:57 PM T [facility] Monocytes % 7.1 5.0 - 13.0 % 08/01/2015 6:57 PM [facility] Eosinophils % 1.0 0.0 - 6.0 % 08/01/2015 6:57 PM [facility] Basophils % 1.0 0.0 - 2.0 % 08/01/2015 6:57 PM [facility] Immature Granulocytes 0.5 0 - 1 % 08/01/2015 6:57 PM [facility] Neutrophil Absolute 5.03 2.01 - 7.14 x10E9/L 08/01/2015 6:57 PM T [facility] Lymphocytes Absolute 3.39 1.07 - 3.94 x10E9/L 08/01/2015 6:57 PM [facility] Monocytes Absolute 0.66 0.26 - 1.07 x10E9/L 08/01/2015 6:57 PM T [facility] Eosinophils Absolute 0.09 0 [...] - HEMATOLOGY ORD ERABLES Performing Organization Address City/State/[facility] Co de Phone Number [facility] [address] [place] [address] documented in this encounter Visit Diagnoses Diagnosis [...] Given 08/01/2015 7:21 PM CDT 1,000 mL rijzunuddh-ufihlhftqzwmd-svg feine (FIORICET) 50-325-40 MG tablet 1 Tab [...] (Anesthesia Volume Adjustment - Provider: Hari Guillory APRN-SUPERVISOR HOT STRIP MILL)1114 ($ New Bag/Syringe - Provider: Janina Espinoza RN)2054 ($ New Bag/Syringe - Provider: Ghazala Deleon APRN-CARRIER WASHER) 0651 ($ New Bag/Syringe - Provider: Ghazala Deleon APRN-CARRIER WASHER) 0.9% NaCl infusion (CANCELED) at 20 mL/hr, Intravenous, CONTINUOUS, Starting on Sat08/03/15 at 0730, Until Sat08/03/15 at 0846, Pre-procedure (GI) 0700 ($ New Bag/Syringe - Provider: Peg Lorenzana RN)0754 (Anesthesia Volume Adjustment - Provider: Brionna Fournier APRN-SUPERVISOR HOT STRIP MILL) PRN Medication Order 08/03/2015 08/04/2015 08/05/2015 ALPRAZolam [...] APRN-NOEMY)0521 ($ Given - Provider: Ghazala Deleon APRN-CARRIER WASHER) HYDROmorphone (DILAUDID) injection 1 mg (CANCELED) 1 [...] med.) documented in this encounter Care Teams Water Valve Mechanic Relationship Specialty Start Date End Date Jonathan Hartman RN Slide Maker 07/14/15 documented as of this encounter
--- OUTSIDE RECORDS SUMMARY | 2024-04-29 20:12 | XMS_ITS | Encounter Summary ---
Author Organization [facility] Address [address] [address] [place] [address] Care Team Providers Care Page Technician Name Role Phone Jonathan Hartman RN Unavailable [phone] Reason for Visit * Auth/Cert Specialty Diagnoses / Procedures Referred By Kaylynn phillips Referred To Contact Diagnoses Acute pancreatitis, unspecified pancreatitis type Referral ID Status Reason Start Date Expiration Date Visits Re quested Visits Authorized [id number] 1 1 Encounter Details Date Type Department Care Team (Late st Contact Info) Description 08/03/2015 7:42 AM CDT Anesthesia Event [facility] - Endoscopy Services [address] [place] [address] Jorge Lucio DO [address] [place] [address] [place] [address] Chas Tran MD [address] [facility] [place] [address] Anesthesia Record Procedure Summary Procedure Name Responsible [...] 08/01/151903 by Marta Marcus RN 08/05/151958 by [employer], Auto Release documented in this encounter Social [...] this encounter Progress Notes * Brionna Fournier, GLASS SCULLION-RIGGING ENGINEER - 08/03/2015 7:57 AM CDT ANESTHESIA POSTPROCEDURE [...] Oral q4h PRN Hari Niño MD ??? xccjtetora-rvyuehgmvvmvo-vilrubhv (FIORICET) 50-325-40 MG tablet 1 Tab 1 [...] CDT documented in this encounter Care Teams Page Technician Relationship Specialty Start Date End Date Jonathan Hartman, RN Coating Manager 07/14/15 documented as of this encounter
--- OUTSIDE RECORDS SUMMARY | 2024-04-29 20:12 | XMS_ITS | Encounter Summary ---
Author Organization [facility] Address [address] [facility] [place] [address] Care Team Providers Care Photonics Engineering Technician Name Role Phone Jonathan Hartman Rhett RN Unavailable [phone] Reason for Referral * Procedure (Routine) - Closed Specialty Diagnoses / Procedures Referred By Kaylynn phillips Referred To Contact Gastroenterology Diagnoses Abdominal pain, unspecified abdominal location Other constipation Chronic inflammation of colon Procedures ENDOSCOPY, COLON, DIAGNOSTIC Armando Corona MD [address] [place] [phone] [address] Referral ID Status Reason Start Date Expiration Date Visits Re quested Visits Authorized [id number] Closed 11/09/2015 05/07/2016 1 1 Reason for Visit * Reason Comments Establish Care abd pains ? divertic ulosis Encounter Details Date Type Department Care Team (Late st Contact Info) Description 11/09/2015 11:40 AM CDT Office Visit [facility] Medical [facility] - [address] [address] Armando Corona MD [address] [place] [phone] Abdominal pain, unspecified abdominal location (Primary [...] Reported on 08/23/2015) 30 Tab 0 ??? lsrgozbqen-gapgbyfzdplkg-bznyjiyw (FIORICET) 50-325-40 MG tablet Take 1 Tab [...] results for input(s): AMYLASE in the last 69[address] hours. Recent Labs Component Name 08/27/15181008/01/15 18507/13/15 [...] acute intra-abdominal pathology. CT A/P w/o at [facility] 10/2015 * bilateral nonobstructing renal stones * [...] you have further questions. Armando Corona MD [facility], Gastroenterology [facility] office: [phone] Exchange: [phone] documented in this encounter Plan of Treatment [...] colitis documented in this encounter Care Teams Photonics Engineering Technician Relationship Specialty Start Date End Date Jonathan Hartman, RN Lead Generator 07/14/15 documented as of this encounter
--- OUTSIDE RECORDS SUMMARY | 2024-04-29 20:12 | XMS_ITS | Encounter Summary ---
Author Organization [facility] Address [address] [place] [address] Care Team Providers Care Railroad Repairer Name Role Phone Jonathan Hartman Rhett RN Unavailable [phone] Encounter Details Date Type Department Care Team (Late st Contact Info) Description 08/11/2015 Orders Only [facility] - GI [address] [place] [phone] Preston Mixon MD [address] [place] [id number] Diverticulitis of intestine without perforation or [...] Primary documented in this encounter Care Teams Railroad Repairer Relationship Specialty Start Date End Date Jonathan Hartman, RN Cubing Machine Tender 07/14/15 documented as of this encounter
--- OUTSIDE RECORDS SUMMARY | 2024-04-29 20:12 | XMS_ITS | Encounter Summary ---
Author Organization [facility] Address [address] [place] [address] Care Team Providers Care Nuclear Technician Name Role Phone Jonathan Hartman Rhett RN Unavailable [phone] Encounter Details Date Type Department Care Team (Late st Contact Info) Description 09/29/2015 Orders Only [facility] - [address] [id number] Armando Corona MD [address] [place] [id number] Gastroesophageal reflux disease without esophagitis Social [...] reflux documented in this encounter Care Teams Nuclear Technician Relationship Specialty Start Date End Date Jonathan Hartman, RN Qc Scientist 07/14/15 documented as of this encounter
--- OUTSIDE RECORDS SUMMARY | 2024-04-29 20:12 | XMS_ITS | Encounter Summary ---
Author Organization [facility] Address [address] [place] [address] Care Team Providers Care Manager Track Name Role Phone Jonathan Hartman Rhett RN Unavailable [phone] Reason for Visit * Auth/Cert Specialty Diagnoses / Procedures Referred By Kaylynn phillips Referred To Contact Diagnoses Acute pancreatitis, unspecified pancreatitis type Referral ID Status Reason Start Date Expiration Date Visits Re quested Visits Authorized [id number] 1 1 Encounter Details Date Type Department Care Team (Late st Contact Info) Description 08/04/2015 9:12 AM CDT Anesthesia Event [facility] - [facility] [address] [place] [address] Jorge Lucio DO [address] [facility] [place] [address] Jg Maldonado MD [address] [facility] [place] [address] Anesthesia Record Procedure Summary Procedure Name Responsible [...] 08/01/151903 by Marta Marcus RN 08/05/151958 by [employer], Auto Release documented in this encounter Social [...] this encounter Progress Notes * Hari Guillory, PROVIDER RELATIONS REPRESENTATIVE-CHILD ABUSE WORKER - 08/04/2015 9:35 AM CDT ANESTHESIA POSTPROCEDURE [...] this encounter Consult Notes * Kenan García, PROVIDER RELATIONS REPRESENTATIVE-CHILD ABUSE WORKER - 08/04/2015 7:37 AM CDT Pre-anesthesia Evaluation [...] Oral q4h PRN Hari Niño MD ??? gpsnugyooh-ldxzetddfdmuq-pylppybz (FIORICET) 50-325-40 MG tablet 1 Tab 1 [...] [phone] No results for input(s): BAWXSAFZV1WL, QDESAWEY0GX, SUWILKCE9VU, ILF9QPNJ29, DKQPIYVKOO8T, SMVKPASHO9BW, QKFNBE1NH in the last [id number] hours. documented in this encounter Plan of [...] CDT documented in this encounter Care Teams Manager Track Relationship Specialty Start Date End Date Jonathan Hartman RN Aircraft Detail Draftsperson 07/14/15 documented as of this encounter
--- OUTSIDE RECORDS SUMMARY | 2024-04-29 20:12 | XMS_ITS | Encounter Summary ---
Author Organization [facility] Address [address] [place] [address] Care Team Providers Care Adjunct Art History Instructor Name Role Phone Jonathan Hartman RN Unavailable [phone] Reason for Visit * Reason Comments Pain Abdominal AP for 4 days/seen a jacqueline Grider and had CT scan as an outpatient/had elevated lipase and amylase/poor oral intake/hx diverticulitis * Auth/Cert Specialty Diagnoses / Procedures Referred By Kaylynn t Referred To Contact Diagnoses Intractable abdominal pain Referral ID Status Reason Start Date Expiration Date Visits Re quested Visits Authorized [id number] 1 1 Encounter Details Date Type Department Care Team (Latest Contact Info) Description 07/13/2015 7:52 PM CDT - 07/16/2015 2:54 PM CDT Hospital Encounter HC 3E MED/ONC [address] [place] [address] Bri Ugarte MD [address] [place] [address] Kelsie Warren MD [address] [facility] [address] [place] [address] Chucho Hinton MD [address] [facility] [address] [place] [address] Internal Medicine Discharge Disposition: Home or [...] Comments Your discharge diagnosis is Gastric ulcer [[id number]] Follow up with Primary Care Provider (PCP) [...] complete visit due to pt currently [facility] for procedure/testing. Will attempt to see [...] joints. She reports she has seen a pediatric physician assistant and was recently diagnosed with seronegative arthritis. They plan to start treatment after her current issues are resolved. She has trouble ambulating, especially after sitting for long periods of time and would like a cane. Evaluation: Mobility: Supine to Sit: Complete Williams Sit to Supine: Complete Williams Sit to Stand: Complete Williams Stand to Sit: Complete Williams Distance Ambulated: 50 FEET Ambulation: Assistive Device: [...] have been applied: Functional Assessment Tool Used: [facility] AM-PAC Basic Mobility Inpatient Short Form [...] Contact Information Primary Emergency Contact: Toi Smith [facility] Relation: Significant other Anticipated Discharge Date: Anticipated Discharge Date: 07/15/15 Anticipated level of care / disposition at discharge: Home Prior Level of Functioning: 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 Jonathan Hartman RN CM [phone] (this number is not to be given [...] and lipase PCP Name: Feliciano Molina in [place], [place] PCP to be contacted?: Emergency Dept to notify Referring physician does not request call back. If patient admitted, admit to PCP. Zully Alfaro RN [facility] [phone] documented in this encounter H&P Notes * [...] Pain Abdominal AP for 4 days/seen at [place] and had CT scan as an outpatient/had [...] results for input(s): MAGMGDL in the last 98289 hours. No results for input(s): PHOS in the last 59251 hours. No results for input(s): AMYLASE in the last 03488 hours. No results for input(s): PHART, ZNZ3YEC, PO2ART, S3ADODIX, BEART, FIO2 in the last 54934 hours. Invalid input(s): IFO4KRM No results for input(s): BNP in the last 94740 hours. No results for input(s): CDIFFTOXINAB in the last 35653 hours. No results for input(s): HGBA1C in the last 45235 hours. No results for input(s): INR in the last 06292 hours. No results for input(s): CHOL, TRIG, HDL, LDLCALC in the last 94189 hours. No results for input(s): PT in the last 70606 hours. No results for input(s): PTT in the last 97621 hours. No results for input(s): T3FREE in the last 04875 hours. No results for input(s): T4FREE in the last 90755 hours. No results for input(s): TSH in the last 88074 hours. Recent Labs Component Name 07/14/15 0721 [...] days prior CT 2 days ago at [place] showed diverticulitis colonoscopy in April when I had diverticulitis and it showed inflammation Notes dx of diverticulitis at [place] in April which resulted in readmission to [place] for completion of antibiotics. 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 (+)epigastric abd pain with food over past [...] results for input(s): INR in the last 53148 hours. No results for input(s): AMYLASE in the last 94691 hours. Recent Labs Component Name 03/23/16 1713 LIPASE 411* Prior Imaging: CT 2 days ago at [place] showed diverticulitis Prior Endoscopies: colonoscopy in April [...] arthritides PLAN * obtain CT imaging from [place] hospital from 2 days prior (young pt, [...] Armando Corona MD [facility] office: [phone] Exchange: [phone] * Colleen Bragg - 07/14/2015 3:35 PM CDTAssociated Order(s): IP CONSULT FOR ADVANCE DIRECTIVES Advance directive information and advance directive form provided to patient. Colleen Bragg [facility] Glove Boarder documented in this encounter ED Notes * Paris Kaur RN - 07/13/2015 10:09 PM CDT Chart is available for review, submitted by Paris Gutierrez RN at [employer] [address] Situation: Patient is a 40 y.o. female that came to the ER via Personal Transportation with - Chief Complaint Patient presents with ??? Pain Abdominal AP for 4 days/seen at [place] and had CT scan as an outpatient/had [...] with the patient: 07/13/2015 20:28 Madalyn Walton [id number] [facility] EMERGENCY DEPARTMENT History Chief Complaint Patient presents with ??? Pain Abdominal AP for 4 days/seen at [place] and had CT scan as an outpatient/had [...] vomiting, blood in stool and urine, dysuria. [facility] checked for gallstones and presented negative results. [...] 67.4 44.0-73.0 % Lymph 24.6 20.0-43.0 % Culberson 6.3 5.0-13.0 % Eos 0.5 0.0-6.0 % Baso 0.8 0.0-2.0 % Immature Grans 0.4 0-1 % Neutro Abs 7.61 (H) 2.01-7.14 x10^9/L Lymph Abs 2.78 1.07-3.94 x10^9/L Culberson Abs 0.71 0.26-1.07 x10^9/L Eosin Abs 0.06 [...] I discussed with BRITT Eaton for Dr. Warern ([facility]) all pertinent aspects of the case [...] have discussed the case with Admitting Physician (RBITT Eaton for Dr. Augusto Buitrago).Discussed with PCP: [...] Dr. Ugarte 07/13/2015 10:06 PM * Paris Karu RN - 07/13/2015 8:09 PM CDT Pt [...] 07/15/2015 1:43 PM CDT Intractable abdominal pain MPO/MA 3 AUTOANTIBODIES PANEL AM Draw 5:51 AM [...] POINT OF CARE ORDERABLES Performing Organization Address City/State/[facility] Co de Phone Number HC POCT TESTING [address] [phone] * LAB RESULTS ORDER (07/19/2015 5:06 AM CDT) Narrative 07/19/2015 5:06 AM CDT Ordered by an unspecified provider. Scanned Document LAB - THERAPEUTIC DR AMEZCUA MONITORING ORDERABLES * GROSS + MICRO EXAM (STL) (07/15/2015 2:30 PM CDT) Case Report Surgical Pathology Report ? Case: [id number] ? Authorizing Provider: ??Armando Corona MD ?Collected: ? 07/15/2015 02:30 PM ? Ordering Location: ? [facility] ?Received: ?07/16/2015 06:21 AM ? Pathologist: ? Starla Rivera MD ? Specimen: ?Antrum/Gastri c Biopsy ? 07/18/2015 3:33 PM CDT [facility] Final Diagnosis 1. ??Gastric antrum, biopsy: -- ??Focal mild chronic inflammation /[facility] 07/18/2015 3:33 PM CDT [facility] Gross Description Received in formalin in a container labeled Madalyn Walton, Antrum/gastric biopsy. ??The container holds multiple pink-baird tissue fragments, measuring from 0.2 cm, up to 0.8 cm. ??The specimen is entirely submitted in a cassette labeled A1. DYT/tc 07/18/2015 3:33 PM CDT [facility] Microscopic Description Sections show fragments of gastric mucosa with focal mild chronic acute inflammation. There is no evidence of dysplasia or malignancy. An immunostain for H. pylori is negative. All of the stain(s), control slide(s) and test tissue slide(s) were judged as technically acceptable. /[facility] 07/18/2015 3:33 PM CDT [facility] Pathology/Cytolo gy GASTRIC ANTRAL BIOPSY SPECIMEN / Unknown 07/15/2015 2:30 PM CDT 07/16/2015 6:21 AM CDT Armando Corona MD LAB - PATHOLOGY/CYTO LOGY ORDERABLES [facility] [address] [place] [address] * EGD (07/15/2015 2:08 PM CDT) Report Endoscopy POC _ Patient Name: Madalyn Walton ? Procedure Date: 07/15/2015 2:08 PM ? Date of : 1975 ?Admit Type: Inpatient Age: 40 ? Gender: Female Attending MD: Armando Corona, ? _ Procedure: ? Upper GI endoscopy Indications: ? Epigastric abdominal pain Providers: ? Armando Corona (Doctor), Felipe Gasca RN, Daren ? Jose Inclusion Manager Patient Profile: ?? 40F pmh depression, arthritis [...] Procedure Code(s): ? --- Professional --- ? 87623, Esophagogastroduod enoscopy, flexible, transoral; with biopsy, ? single or multiple ? --- Technical --- ? 02473, Esophagogastroduod enoscopy, flexible, transoral; with biopsy, ? single or multiple Diagnosis Code(s): ? --- Professional --- ? K25.9, Gastric ulcer, unspecified as acute or chronic, without ? hemorrhage or perforation ? R10.13, Epigastric pain ? --- Technical --- ? K25.9, Gastric ulcer, unspecified as acute or chronic, without ? hemorrhage or perforation ? R10.13, Epigastric pain CPT copyright 2015 [employer]. All rights reserved. The codes documented in this report are preliminary and upon smt operator review may be revised to meet current compliance requirements. Armando Corona, 07/15/2015 2:36:07 PM This report has been signed electronically. Number of Addenda: 0 Note Initiated On: 07/15/2015 2:08 PM [facility] 07/15/2015 2:08 PM CDT Narrative [...] Armando Corona MD GI PROCEDURE ORDERAB LES [facility] * HCG URINE QUALITATIVE - POINT OF CARE (IP) (07/15/2015 1:43 PM CDT) HCG Qual Urine Negative Negative HC POCT TESTING QC Verified Yes Yes [facility] POC T TESTING Urine specimen (specimen) URINE / Unknown 07/15/2015 1:43 PM CDT Chas Tran MD LAB - POINT OF CARE ORDERABLES Performing Organization Address City/[facility]/ZIP Co de Phone Number [facility] POCT TESTING [address] [place] [address] * MPO/MA 3 AUTOANTIBODIES PANEL (07/15/2015 5:51 AM CDT) Anti-myeloperox idase (MPO) Antibody <9.0 0.0 - 9.0 U/mL 07/18/2015 1:17 PM CDT [facility] ([facility]) Anti-proteinase 3 (MA-3) Abs <3.5 0.0 - 3.5 U/mL 07/18/2015 1:17 PM CDT [facility] ([facility]) Blood specimen (specimen) BLOOD SPECIMEN / Unknown Lab Venipuncture / Unknown 07/15/2015 5:51 AM CDT 07/15/2015 6:11 AM CDT Narrative [facility] ([facility]) - 07/18/2015 1:17 PM CDT Performed at: ??01 - [facility] [address] ??[id number] Homeland Security Program Specialist: Curtis Sanchez MD, Phone: ??[phone] Chucho Hinton MD LAB - CHEMISTRY MORGAN YEE [facility] Organization Address City/State/ZIP Co de Phone Number [facility] ([facility]) * (ABNORMAL) CBC W AUTO DIFFERENTIAL (07/15/2015 5:51 AM CDT) WBC 5.5 4.4 - 10.7 x10^9/L 07/15/2015 6:28 AM CDT [facility] WBC Corrected x10^9/L 07/15/2015 6:28 AM CDT [facility] RBC 4.52 3.80 - 5.20 x10^12/L 07/15/2015 6:28 AM CDT [facility] Hemoglobin 12.5 12.0 - 15.6 gm/dL 07/15/2015 6:28 AM CDT [facility] Hematocrit 38.2 35.9 - 45.5 % 07/15/2015 6:28 AM CDT [facility] MCV 84.5 80.7 - 98.3 fl 07/15/2015 6:28 AM CDT [facility] MCH 27.7 26.7 - 34.0 pg 07/15/2015 6:28 AM CDT [facility] MCHC 32.7 30.8 - 35.9 gm/dL 07/15/2015 6:28 AM CDT [facility] Platelet Count 243 153 - 416 x10^9/L 07/15/2015 6:28 AM CDT [facility] RDW-CV 14.2 12.1 - 14.9 % 07/15/2015 6:28 AM CDT [facility] MPV 8.8(L) 9.4 - 12.9 fl 07/15/2015 6:28 AM CDT [facility] Neutrophils % 57.4 44.0 - 73.0 % 07/15/2015 6:28 AM CDT [facility] Lymphocytes % 33.0 20.0 - 43.0 % 07/15/2015 6:28 AM CDT [facility] Monocytes % 6.8 5.0 - 13.0 % 07/15/2015 6:28 AM CDT [facility] Eosinophils % 1.5 0.0 - 6.0 % 07/15/2015 6:28 AM CDT [facility] Basophils % 0.9 0.0 - 2.0 % 07/15/2015 6:28 AM CDT [facility] Immature Granulocytes 0.4 0 - 1 % 07/15/2015 6:28 AM CDT [facility] Neutrophil Absolute 3.13 2.01 - 7.14 x10^9/L 07/15/2015 6:28 AM CDT [facility] Lymphocytes Absolute 1.80 1.07 - 3.94 x10^9/L 07/15/2015 6:28 AM CDT [facility] Monocytes Absolute 0.37 0.26 - 1.07 x10^9/L 07/15/2015 6:28 AM CDT [facility] Eosinophils Absolute 0.08 0 - 0.47 x10^9/L 07/15/2015 6:28 AM CDT [facility] Basophils Absolute 0.05 0 - 0.08 x10^9/L 07/15/2015 6:28 AM CDT [facility] Immature Granulocytes Absolute 0.02 0.00 - 0.06 x10^9/L 07/15/2015 6:28 AM CDT [facility] nRBC Auto 0 /100 WBC 07/15/2015 6:28 AM CDT [facility] Blood BLOOD SPECIMEN / Unknown Lab Venipuncture / Unknown 07/15/2015 5:51 AM CDT 07/15/2015 6:11 AM CDT Chucho Hinton MD LAB - HEMATOLOGY ORD ERABLES [facility] [address] [place] [address] * LACTIC ACID BLOOD (07/15/2015 5:50 AM CDT) Lactic Acid 0.8 0.7 - 2.1 mmol/L 07/15/2015 6:50 AM T [facility] Blood BLOOD SPECIMEN / Unknown Lab Venipuncture / Unknown 07/15/2015 5:50 AM CDT 07/15/2015 6:11 AM CDT Chucho Hinton MD LAB - CHEMISTRY MORGAN YEE Performing Organization Address [facility] Co de Phone Number [facility] [address] [place] [address] * (ABNORMAL) C-REACTIVE PROTEIN (07/15/2015 5:50 AM CDT) Pathologist [facility] C-Reactive Protein 0.30(H) <0.30 mg/dL 07/15/2015 6:48 AM CDT [facility] Blood BLOOD SPECIMEN / Unknown Lab Venipuncture / Unknown 07/15/2015 5:50 AM CDT 07/15/2015 6:11 AM CDT Chucho Hintno MD LAB - CHEMISTRY MORGAN YEE Performing Organization Address [facility] Co de Phone Number [facility] [address] [place] [address] * SED RATE WESTERGREN (07/15/2015 5:50 AM CDT) Pathologist [facility] Erythrocyte Sedimentation Rate Westergren 7 0 - 20 mm/hr 07/15/2015 6:36 AM CDT [facility] Blood BLOOD SPECIMEN / Unknown Lab Venipuncture / Unknown 07/15/2015 5:50 AM CDT 07/15/2015 6:11 AM CDT Chucho Hinton MD LAB - HEMATOLOGY ORD PRIMITIVO Performing Organization Address [facility] Co de Phone Number [facility] [address] [place] [address] * (ABNORMAL) LACTOFERRIN FECAL QUALITATIVE (07/14/2015 1:44 PM CDT) Pathologist [facility] Lactoferrin Fecal Positive( A) Negative 07/14/2015 9:15 PM CDT [facility] Stool STOOL SPECIMEN / Unknown Collection / Unknown 07/14/2015 1:44 PM CDT 07/14/2015 3:56 PM CDT Narrative [facility] - 07/14/2015 9:15 PM CDT Fecal lactoferrin is a marker for fecal leukocytes. CAUTION: A negative result does not exclude the presence of intestinal inflammation. This test is not recommended for children who are breast-fed; the presence of lactoferrin in breast milk can give false-positive results. Chucho Hinton MD LAB - BODY FLUID ORD ERABLES Performing Organization Address [facility] Co de Phone Number [facility] [address] [facility] [place] [address], [facility] [phone] * CLOSTRIDIUM DIFFICILE GDH AG + TOXIN A+B (07/14/2015 1:43 PM CDT) GDH Antigen Negative Negative, Invalid 07/15/2015 9:08 AM CDT [facility] C difficile Toxin A + B Negative Negative, Invalid 07/15/2015 9:08 AM CDT [facility] Interpretation C difficile Negative for toxigenic C. difficile Negative for toxigenic C. difficile 07/15/2015 9:08 AM CDT [facility] Stool STOOL SPECIMEN / Unknown Collection / Unknown 07/14/2015 1:43 PM CDT 07/14/2015 3:55 PM CDT Chucho Hinton MD LAB - MICROBIOLOGY O RDERABLES Performing Organization Address [facility]/[place]UST de Phone Number [facility] [address] [facility] [place] [address], [facility] [phone] * CULTURE STOOL+ E COLI SHIGA-LIKE TOXIN (07/14/2015 1:43 PM CDT) Culture No growth Salmonella, Shigella, Campylobacter , E. coli 0157:h7 or Yersinia CARLOS EDUARDO 07/17/2015 7:33 AM CDT [facility] Culture Negative E. coli Shiga-like toxin (NM) CARLOS EDUARDO 07/17/2015 7:33 AM CDT [facility] Stool STOOL SPECIMEN / Unknown Collection / Unknown 07/14/2015 1:43 PM CDT 07/14/2015 3:56 PM CDT Chucho Hinton MD LAB - MICROBIOLOGY O ASHLEIGH [facility] [address] [place] [address], [facility] [phone] * CULTURE URINE (07/14/2015 7:21 AM CDT) Culture <10,000 CFU/mL urogenital adelso CARLOS EDUARDO 07/15/2015 12:57 PM CDT [facility] Urine URINE SPECIMEN OBTAINED BY CLEAN CATCH PROCEDURE / Unknown Collection / Unknown 07/14/2015 7:21 AM CDT 07/14/2015 7:52 AM CDT Bri Ugarte MD LAB - MICROBIOLOGY O ASHLEIGH Performing Organization Address [facility]/ZIP Co de Phone Number [facility] [address] [place] [address], [facility] [phone] * (ABNORMAL) URINALYSIS ROUTINE W/REFLEX TO CULTURE (07/14/2015 7:21 AM CDT) Color UA Yellow Straw, Yellow, Dark Yellow 07/14/2015 8:19 AM CDT [facility] Clarity UA Clear 07/14/2015 8:19 AM CDT [facility] Specific [place] UA 1.021 1.005 - 1.030 07/14/2015 8:19 AM CDT [facility] pH UA 6.0 5.0 - 8.0 pH 07/14/2015 8:19 AM CDT [facility] Protein UA Negative Negative 07/14/2015 8:19 AM CDT [facility] Blood UA 1+(A) Negative 07/14/2015 8:19 AM CDT [facility] Leukocyte UA 2+(A) Negative 07/14/2015 8:19 AM CDT [facility] Nitrite UA Negative Negative 07/14/2015 8:19 AM CDT [facility] Glucose UA Negative Negative 07/14/2015 8:19 AM CDT [facility] Ketone UA Negative Negative 07/14/2015 8:19 AM CDT [facility] Bilirubin UA Negative Negative 07/14/2015 8:19 AM CDT [facility] Urobilinogen UA 0.2 0.1 - 1.0 EU/dL 07/14/2015 8:19 AM CDT [facility] WBC UA Auto 5-10(A) 0-2, 2-5 # /hpf 07/14/2015 8:19 AM CDT [facility] RBC UA Auto 10-20(A) 0-2, 2-5 # /hpf 07/14/2015 8:19 AM CDT [facility] Epithelial Cell UA Auto 5-10(A) 0-2, 2-5 # /hpf 07/14/2015 8:19 AM CDT [facility] Bacteria UA Auto 1+(A) None seen 07/14/2015 8:19 AM CDT [facility] Hyaline Casts UA Auto 2-5(A) 0 - 2 #/lpf 07/14/2015 8:19 AM T [facility] Reflex Status Culture to follow 07/14/2015 8:19 AM CDT [facility] Urine URINE SPECIMEN OBTAINED BY CLEAN CATCH PROCEDURE / Unknown Collection / Unknown 07/14/2015 7:21 AM CDT 07/14/2015 7:52 AM CDT Bri Ugarte MD LAB - URINALYSIS ORD ERABLES [facility] [address] [place], [place] [phone] * (ABNORMAL) LIPASE BLOOD (07/13/2015 5:13 PM CDT) Pathologist [facility] Lipase 411(H) 10 - 220 U/L 07/13/2015 5:33 PM CDT [facility] Blood BLOOD SPECIMEN / Unknown Venipuncture / Unknown 07/13/2015 5:13 PM CDT 07/13/2015 5:16 PM CDT Bri Ugarte MD LAB - CHEMISTRY ORDE JOSELITO [facility] [address] [place], [place] [phone] * (ABNORMAL) COMPREHENSIVE METABOLIC PANEL (07/13/2015 5:13 PM CDT) Glucose 95 74 - 106 mg/dL 07/13/2015 5:33 PM CDT [facility] Sodium 136 136 - 145 mmol/L 07/13/2015 5:33 PM CDT [facility] Potassium 3.8 3.5 - 5.1 mmol/L 07/13/2015 5:33 PM CDT [facility] Chloride 107 98 - 107 mmol/L 07/13/2015 5:33 PM CDT [facility] CO2 20(L) 22 - 31 mmol/L 07/13/2015 5:33 PM CDT [facility] Calcium 9.7 8.5 - 10.1 mg/dL 07/13/2015 5:33 PM CDT [facility] Anion Gap 9 5 - 20 mmol/L 07/13/2015 5:33 PM CDT [facility] BUN 23(H) 7 - 21 mg/dL 07/13/2015 5:33 PM CDT [facility] Creatinine 0.94 0.50 - 1.30 mg/dL 07/13/2015 5:33 PM CDT [facility] Alkaline Phosphatase 94 38 - 126 U/L 07/13/2015 5:33 PM CDT [facility] ALT 35 12 - 78 U/L 07/13/2015 5:33 PM CDT [facility] AST 11 5 - 40 U/L 07/13/2015 5:33 PM CDT [facility] Protein Total 8.9(H) 6.4 - 8.2 gm/dL 07/13/2015 5:33 PM CDT [facility] Albumin 4.5 3.4 - 5.0 gm/dL 07/13/2015 5:33 PM CDT [facility] Bilirubin Total 0.7 0.2 - 1.0 mg/dL 07/13/2015 5:33 PM CDT [facility] eGFR by MDRD >60 >60 mL/min/1.7 3m2 07/13/2015 5:33 PM CDT [facility] eGFR by MDRD >60 >60 mL/min/1.7 3m2 07/13/2015 5:33 PM CDT [facility] Blood BLOOD SPECIMEN / Unknown Venipuncture / Unknown 07/13/2015 5:13 PM CDT 07/13/2015 5:16 PM CDT Bri Ugarte MD LAB - CHEMISTRY MORGAN YEE [facility] Organization Address City/State/ZIP Co de Phone Number [facility] [address] [place], [place] [phone] * (ABNORMAL) CBC W AUTO DIFFERENTIAL (07/13/2015 5:13 PM CDT) WBC 11.3(H) 4.4 - 10.7 x10^9/L 07/13/2015 5:19 PM CDT [facility] WBC Corrected x10^9/L 07/13/2015 5:19 PM CDT [facility] RBC 5.86(H) 3.80 - 5.20 x10^12/L 07/13/2015 5:19 PM CDT [facility] Hemoglobin 16.2(H) 12.0 - 15.6 gm/dL 07/13/2015 5:19 PM CDT [facility] Hematocrit 49.0(H) 35.9 - 45.5 % 07/13/2015 5:19 PM CDT [facility] MCV 83.6 80.7 - 98.3 fl 07/13/2015 5:19 PM CDT [facility] MCH 27.6 26.7 - 34.0 pg 07/13/2015 5:19 PM CDT [facility] MCHC 33.1 30.8 - 35.9 gm/dL 07/13/2015 5:19 PM CDT [facility] Platelet Count 375 153 - 416 x10^9/L 07/13/2015 5:19 PM CDT [facility] RDW-CV 14.5 12.1 - 14.9 % 07/13/2015 5:19 PM CDT [facility] MPV 8.6(L) 9.4 - 12.9 fl 07/13/2015 5:19 PM CDT [facility] Neutrophils % 67.4 44.0 - 73.0 % 07/13/2015 5:19 PM CDT [facility] Lymphocytes % 24.6 20.0 - 43.0 % 07/13/2015 5:19 PM CDT [facility] Monocytes % 6.3 5.0 - 13.0 % 07/13/2015 5:19 PM CDT [facility] Eosinophils % 0.5 0.0 - 6.0 % 07/13/2015 5:19 PM CDT [facility] Basophils % 0.8 0.0 - 2.0 % 07/13/2015 5:19 PM CDT [facility] Immature Granulocytes 0.4 0 - 1 % 07/13/2015 5:19 PM CDT [facility] Neutrophil Absolute 7.61(H) 2.01 - 7.14 x10^9/L 07/13/2015 5:19 PM CDT [facility] Lymphocytes Absolute 2.78 1.07 - 3.94 x10^9/L 07/13/2015 5:19 PM CDT [facility] Monocytes Absolute 0.71 0.26 - 1.07 x10^9/L 07/13/2015 5:19 PM CDT [facility] Eosinophils Absolute 0.06 0 - 0.47 x10^9/L 07/13/2015 5:19 PM CDT [facility] Basophils Absolute 0.09(H) 0 - 0.08 x10^9/L 07/13/2015 5:19 PM CDT [facility] Immature Granulocytes Absolute 0.05 0.00 - 0.06 x10^9/L 07/13/2015 5:19 PM CDT [facility] nRBC Auto 0 /100 WBC 07/13/2015 5:19 PM CDT [facility] Blood BLOOD SPECIMEN / Unknown Venipuncture / Unknown 07/13/2015 5:13 PM CDT 07/13/2015 5:16 PM CDT Bri Ugarte MD LAB - HEMATOLOGY ORD ERABLES [facility] Organization Address City/State/[facility] Co de Phone Number [facility] [address] [place] [address] documented in this encounter Visit [...] Oral, EVERY 12 HOURS, First dose on [facility] 07/16/15 at 1600, Until Discontinued, Take with [...] ($ New Bag/Syringe - Provider: Indira Jin APRN-UPPER CASER)1429 (Anesthesia Volume Adjustment - Provider: RODRICK Mann) [...] Schaefer) 0405 ($ Given - Provider: Alyse Scahefer)0936 ($ Given - Provider: Brunilda Carson, ANTHONY)1420 ($ Given - Provider: Laurel Flores RN) SUMAtriptan (IMITREX) injection 6 mg (CANCELED) 6 mg, Subcutaneous, DAILY PRN, Migraine, Starting on Sat07/15/15 at 1154, Until 07/16/15 at 1554, MAX 6 mg/dose and 12 mg/24 hr 1531 ($ Given - Provider: Laurel Flores, ANTHONY) documented in this encounter Care Teams Adjunct Art History Instructor Relationship Specialty Start Date End Date Jonathan Hartman, RN Manager [employer] 07/14/15 documented as of this encounter
--- OUTSIDE RECORDS SUMMARY | 2024-04-29 20:12 | XMS_ITS | Encounter Summary ---
Author Organization [facility] Address [address] [place] [address] Care Team Providers Care [employer] Revenue Officer Name Role Phone Jonathan Hartman Rhett RN Unavailable [phone] Encounter Details Date Type Department Care Team (Late st Contact Info) Description 07/19/2015 Orders Only [facility] - GI [address] [place] [address] [phone] Armando Corona MD [address] [place] [id number] PUD (peptic ulcer disease) ; Diverticulitis [...] at 10:00am, on 08/29/15. Please register at: [facility] Endoscopy Department (ground floor East Entrance) [address] [place] [address] FIRST STEPS: Notify us if you are [...] Take the enclosed prescription to your pharmacy. supervisor rose grading the Golytely/Gavalyte bowel prep. Mix the Golytely/Gavalyte [...] your exam). 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 There is a comfortable waiting area for their convenience. Thank you for allowing us to participate in your care. If you have any questions regarding this procedure or preparation for it, please call our office [phone] or [phone]. documented in this encounter Progress Notes * [...] hemorrhage) documented in this encounter Care Teams [employer] Revenue Officer Relationship Specialty Start Date End Date Jonathan Hartman RN Signals Intelligence Analyst 07/14/15 documented as of this encounter
--- OUTSIDE RECORDS SUMMARY | 2024-04-29 20:12 | XMS_ITS | Encounter Summary ---
Author Organization [facility] Address [address] [place] [address] Care Team Providers Care Shoe Lining Fitter Name Role Phone Jonathan Hartman RN Unavailable [phone] Reason for Visit * Reason Comments Pain Abdominal c/o periumbilical pa in x 3 days. Black diarrhea, increased pain today. Nausea. No vomiting. * Auth/Cert Specialty Diagnoses / Procedures Referred By Kayylnn phillips Referred To Contact Diagnoses Acute pancreatitis, unspecified pancreatitis type Referral ID Status Reason Start Date Expiration Date Visits Re quested Visits Authorized [id number] 1 1 Encounter Details Date Type Department Care Team (Late st Contact Info) Description 08/04/2015 9:00 AM CDT - 08/04/2015 9:30 AM CDT Surgery [facility] [address] [place] [address] Armando Corona MD [address] [place] [address] [place] [id number] COLONOSCOPY SCREEN Surgery Details Date/Time Status Location OR Service Patient Class Case Class Case Type Trauma Case? 08/04/2015 9:[address] [facility] 04 Gastroenterology Inpatient Elective > [...] daily as needed for Anxiety Chucho Hinton ikcqjjdsst-eaehxiitketxq-hueaosys 50-325-40 MG tablet Commonly known as: FIORICET [...] Answer Comments Your discharge diagnosis is Diverticulitis [[id number]] Follow up with Primary Care Provider (PCP) [...] understood by pt and scripts filled by [facility]. Pt discharged home. * Chucho Hinton [...] tablet 0.25 mg, Oral, TID PRN ?? hgnnmdtzyx-ggjgkwpfpkhwm-oicwawyp (FIORICET) 50-325-40 MG tablet 1 Tab, Oral, [...] patient resting comfortably. Will contiune to monitor. Ghaazla Deleon RN 08/05/2015 6:32 AM * Ghazala [...] tablet 650 mg, Oral, q4h PRN ?? mpzztlbzjf-mssjfkqywwggg-isohnqwx (FIORICET) 50-325-40 MG tablet 1 Tab, Oral, [...] tablet 650 mg, Oral, q4h PRN ?? bucmuvgorb-yjkqdfcedoeqo-hgagzdzi (FIORICET) 50-325-40 MG tablet 1 Tab, Oral, [...] liquid diet. Continues c/o abdominal pain, refuses Orrum, states Orrum doesn't really help her. Pt wants to wait until Dilaudid is due again. * Chari Fontenot RN - 08/03/2015 5:34 AM CDT Shift summary: abdominal pain overnight treated with Orrum and Dilaudid. Per pt pain never completely gone but reaches tolerable level. Npo for procedure this am, consent in chart. * Mary Castanon RN - 08/02/2015 7:29 PM CDT Shift highlights: VSS. C/o abdominal pain throughout the day. Dilaudid and Orrum given as ordered. C/o migraine once today. [...] Contact Information Primary Emergency Contact: Jeraldrossmaria luisaToi [facility] Relation: Significant other Anticipated Discharge Date: [...] needs please contact: Madalyn Medina RN [phone] Name/Phone number: Madalyn Medina RN * Jaky [...] Oral q4h PRN Hari Niño MD ??? xgklwolbwe-jncgmhiiwgfla-wfcaqyfy (FIORICET) 50-325-40 MG tablet 1 Tab 1 [...] Oral q4h PRN Hari Niño MD ??? uiclpzfnvj-nvbmrubxogurj-srwzjswv (FIORICET) 50-325-40 MG tablet 1 Tab 1 [...] results for input(s): MAGMGDL in the last 34797 hours. No results for input(s): PHOS in the last 30441 hours. No results for input(s): AMYLASE in the last 62161 hours. No results for input(s): PHART, MEE5NMX, PO2ART, B8HOERFH, BEART, FIO2 in the last 75284 hours. Invalid input(s): VJA0BPG No results for input(s): BNP in the last 25024 hours. Recent Labs Component Name 07/14/15 1343 CDIFFTOXINAB Negative No results for input(s): HGBA1C in the last 54997 hours. No results for input(s): INR in the last 25190 hours. Recent Labs Component Name 08/02/15 1002 CHOL 184 TRIG 156* HDL 43 LDLCALC 110 No results for input(s): PT in the last 46230 hours. No results for input(s): PTT in the last 74214 hours. No results for input(s): T3FREE in the last 56831 hours. No results for input(s): T4FREE in the last 95563 hours. No results for input(s): TSH in the last 04128 hours. Recent Labs Component Name 08/01/15 193 [...] CDTAssociated Order(s): IP CONSULT TO PASTORAL CARE Painter Rough support to the patient was requested/provided. * [...] Oral q4h PRN Hari Niño MD ??? dzhignnioz-zuohagqcmcevi-fwzhkagv (FIORICET) 50-325-40 MG tablet 1 Tab 1 [...] (TYLENOL) tablet 650 mg, Oral, q4h PRN mcraixfekb-fxgutoqdfjscz-kqxxgtml (FIORICET) 50-325-40 MG tablet 1 Tab, Oral, [...] results for input(s): INR in the last 25815 hours. No results for input(s): AMYLASE in the last 89711 hours. Recent Labs Component Name 08/01/15 1850 [...] have further questions. Armando Corona MD [facility] office: [phone] Exchange: [phone] documented in this encounter Nursing Notes * [...] review, submitted by ANTHONY Livingston at [facility] [id number] Situation: Patient is a 40 y.o. [...] with the patient: 08/01/2015 18:48 Madalyn Walton [id number] [facility] EMERGENCY DEPARTMENT History Chief Complaint Patient presents [...] 54.0 44.0-73.0 % Lymph 36.4 20.0-43.0 % Geary 7.1 5.0-13.0 % Eos 1.0 0.0-6.0 % Baso 1.0 0.0-2.0 % Immature Grans 0.5 0-1 % Neutro Abs 5.03 2.01-7.14 x10E9/L Lymph Abs 3.39 1.07-3.94 x10E9/L Geary Abs 0.66 0.26-1.07 x10E9/L Eosin Abs 0.09 [...] Yellow, Dark Yellow Clarity UA Clear Specific [place] UA 1.019 1.005-1.030 pH UA 6.5 5.0-8.0 [...] structures are otherwise normal. ?? PRELIMINARY REPORT [facility] Patient Name: ISABEL FROST Age: 28 Patient MR NO: [id number] Referring Doctor: Dr. Dickerson Patient Location: Emergency [...] No large ovarian cysts To Talk to Radiologist([phone] [phone] Leeroy Ching M.D. Electronically Signed Progress Notes 6:49 PM Plan: Labs, CT abdomen/pelvis. 9:35 PM Call out to IPC. 9:36 PM I reevaluated the patient???s medical condition, comfort, and provided a care update. Informed patient and family of admission. 10:33 PM I discussed with Dr. Romero ([facility]) all pertinent aspects of the case [...] - 35.9 gm/dL 08/05/2015 7:[address] [facility] Platelet Count 232 153 - 416 x10E9/L 08/05/2015 7:[address] [facility] RDW-CV 14.5 12.1 - 14.9 % 08/05/2015 7:[address] [facility] MPV 8.6(L) 9.4 - 12.9 fl 08/05/2015 7:[address] [facility] Neutrophils % 39.6(L) 44.0 - 73.0 % 08/05/2015 7:[address] [facility] Lymphocytes % 52.4(H) 20.0 - 43.0 % 08/05/2015 7:[address] [facility] Monocytes % 5.5 5.0 - 13.0 % 08/05/2015 7:[address] [facility] Eosinophils % 1.1 0.0 - 6.0 % 08/05/2015 7:[address] [facility] Basophils % 0.9 0.0 - 2.0 % 08/05/2015 7:[address] [facility] Immature Granulocytes 0.5 0 - 1 % 08/05/2015 7:[address] [facility] Neutrophil Absolute 1.73(L) 2.01 - 7.14 x10E9/L 08/05/2015 7:[address] [facility] Lymphocytes Absolute 2.29 1.07 - 3.94 x10E9/L 08/05/2015 7:[address] [facility] Monocytes Absolute 0.24(L) 0.26 - 1.07 x10E9/L 08/05/2015 7:[address] [facility] Eosinophils Absolute 0.05 0 - 0.47 x10E9/L 08/05/2015 7:[address] [facility] Basophils Absolute 0.04 0 - 0.08 x10E9/L 08/05/2015 7:[address] [facility] Immature Granulocytes Absolute 0.02 0.00 - 0.06 x10E9/L 08/05/2015 7:[address] [facility] nRBC Auto 0 /100 WBC 08/05/2015 7:[address] [facility] Blood BLOOD SPECIMEN / Unknown Lab Venipuncture / Unknown 08/05/2015 7:09 AM CDT 08/05/2015 7:21 AM CDT Armando Corona MD LAB - HEMATOLOGY ORD ERABLES Performing Organization Address City/[facility]/ZIP Co de Phone Number [facility] [address] [place] [address] * HEMOGLOBIN (08/04/2015 11:16 AM CDT) Hemoglobin 12.6 12.0 - 15.6 gm/dL 08/04/2015 11:[address] [facility] Blood BLOOD SPECIMEN / Unknown Lab Venipuncture / Unknown 08/04/2015 11:16 AM CDT 08/04/2015 11:22 AM CDT Armando Corona MD LAB - HEMATOLOGY ORD TUSTINBLES Performing Organization Address [facility] Co de Phone Number [facility] [address] [place] [address] * GROSS + MICRO EXAM (STL) (08/04/2015 9:31 AM CDT) Pathologist [facility] Case Report Surgical Pathology Report ? Case: [id number] ? Authorizing Provider: ??Armando Corona MD ? Collected: ? 08/04/2015 09:31 AM ? Ordering Location: ? [facility] ?Received: ?08/04/2015 12:25 PM ? Pathologist: ? Kamilla Bustamante MD ? Specimen: ?Polyp Descending, Descending colon polyp ? 08/05/2015 11:[address] [facility] Final Diagnosis 1. ??Descending colon, polyp, biopsy: -- ??Hyperplastic polyp SR/alj 08/05/2015 11:[address] [facility] Gross Description Received in formalin in a container labeled Anton, Madalyn, descending colon polyp. ??The container holds a 0.5 x 0.4 x 0.3 cm baird tissue fragment. ??The specimen is entirely submitted in a cassette labeled A1. ?? DYT/rtc 08/05/2015 11:[address] [facility] Microscopic Description Microscopic examination reveals colonic mucosal fragment with hyperplastic polyp changes. Malignancy is not seen. SR/alj 08/05/2015 11:[address] [facility] Pathology/Cytolo gy POLYP / Unknown 08/04/2015 9:31 AM CDT 08/04/2015 12:25 PM CDT Armando Corona MD LAB - PATHOLOGY/CYTO LOGY ORDERABLES [facility] [address] [place] [address] * ENDOSCOPY, COLON, DIAGNOSTIC (08/04/2015 [...] of melena and abd pain Referring MD: ?Felciiano Dash Md (Referring MD) Medicines: ? Monitored [...] Procedure Code(s): ? --- Professional --- ? 38171, Colonoscopy, flexible; with removal of tumor(s), polyp(s), or ? other lesion(s) by snare technique ? --- Technical --- ? 94512, Colonoscopy, flexible; with removal of tumor(s), polyp(s), [...] abscess ? without bleeding CPT copyright 2015 [employer]. All rights reserved. The codes documented in this report are preliminary and upon regulatory intern review may be revised to meet current compliance requirements. Armando Corona 08/04/2015 9:38:09 AM This report has been signed electronically. Number of Addenda: 0 Note Initiated On: 08/04/2015 9:[address] [facility] 08/04/2015 9:04 AM CDT Narrative Transcriptions Armando Corona MD - 08/04/2015 9:39 AM CDT Colonoscopy * fair prep *few diverticuli * no old or fresh blood * normal terminal ileum rec PRN hyoscyamine Capsule endoscopy today Armando Corona MD GI PROCEDURE ORDERAB LES [facility] * GROSS + MICRO EXAM (STL) (08/03/2015 7:54 AM CDT) Case Report Surgical Pathology Report ? Case: [id number] ? Authorizing Provider: ??Armando Corona MD ? Collected: ? 08/03/2015 07:54 AM ? Ordering Location: ? [facility] ?Received: ?08/03/2015 12:09 PM ? Pathologist: ? Kamilla Bustamante MD ? Specimen: ?Gastric Biopsy ? 08/04/2015 10:[address] [facility] Final Diagnosis 1. ??Gastric biopsy: -- ??Chronic gastritis -- ??H. pylori stain negative for bacterial organisms /zoey 08/04/2015 10:[address] [facility] Gross Description The specimen is received fixed in formalin in 1 container labeled with the patient's name, and gastric biopsy and contains three soft baird-yellow tissue fragments each measuring 0.3 cm in greatest dimension. The specimen is strained through a mesh bag and submitted in toto in cassette A1. JOVANNA/zoey 08/04/2015 10:[address] [facility] Microscopic Description Microscopic examination reveals gastric antrum and body mucosal fragments with patchy chronic gastritis. Metaplasia, dysplasia, malignancy and granulomas are not seen. H. pylori stain is negative for bacterial organisms. All of the stain(s), control slide(s) and test tissue slide(s) were judged as technically acceptable. /mark 08/04/2015 10:[address] [facility] Pathology/Cytolo gy GASTRIC BIOPSY SPECIMEN / Unknown 08/03/2015 7:54 AM CDT 08/03/2015 12:09 PM CDT Armando Corona MD LAB - PATHOLOGY/CYTO LOGY ORDERABLES Performing Organization Address City/State/[facility] Phone Number [facility] [address] [place] [address] * EGD (08/03/2015 7:24 AM [...] (Doctor), Roxi Bennett RN, Sona Dove, ? Transmission Engineer Patient Profile: ?? 40F pmh depression, arthritis, [...] Procedure Code(s): ? --- Professional --- ? 49192, Esophagogastroduod enoscopy, flexible, transoral; with biopsy, ? single or multiple ? --- Technical --- ? 36886, Esophagogastroduod enoscopy, flexible, transoral; with biopsy, ? single or multiple Diagnosis Code(s): ? --- Professional --- ? K29.70, Gastritis, unspecified, without bleeding ? R10.13, Epigastric pain ? R10.33, Periumbilical pain ? K92.1, Melena (includes Hematochezia) ? --- Technical --- ? K29.70, Gastritis, unspecified, without bleeding ? R10.13, Epigastric pain ? R10.33, Periumbilical pain ? K92.1, Melena (includes Hematochezia) CPT copyright 2015 [employer]. All rights reserved. The codes documented in this report are preliminary and upon regulatory intern review may be revised to meet current compliance requirements. Armando Corona, 08/03/2015 8:00:13 AM This report has been signed electronically. Number of Addenda: 0 Note Initiated On: 08/03/2015 7:[address] [facility] 08/03/2015 7:24 AM CDT Narrative Transcriptions Armando Corona MD - 08/03/2015 8:00 AM CDT EGD - mild gastritis bx'd, other normal to proximal jejunum Rec Colonoscopy tomorrow Follow cb[facility] Armando Corona MD GI PROCEDURE ORDERAB LES [facility] * (ABNORMAL) BASIC METABOLIC PANEL (CALCIUM TOTAL) (08/03/2015 4:14 AM CDT) Glucose 83 74 - 106 mg/dL 08/03/2015 5:[address] [facility] Sodium 141 136 - 145 mmol/L 08/03/2015 5:[address] [facility] Potassium 4.0 3.5 - 5.1 mmol/L 08/03/2015 5:[address] [facility] Chloride 107 98 - 107 mmol/L 08/03/2015 5:[address] [facility] CO2 25 22 - 31 mmol/L 08/03/2015 5:[address] [facility] Calcium 8.3(L) 8.5 - 10.1 mg/dL 08/03/2015 5:[address] [facility] Anion Gap 9 5 - 20 mmol/L 08/03/2015 5:[address] [facility] BUN 6(L) 7 - 21 mg/dL 08/03/2015 5:[address] [facility] Creatinine 0.70 0.50 - 1.30 mg/dL 08/03/2015 5:[address] [facility] eGFR by MDRD >60 >60 mL/min/1.7 3m2 08/03/2015 5:[address] [facility] eGFR by MDRD >60 >60 mL/min/1.7 3m2 08/03/2015 5:[address] [facility] Blood BLOOD SPECIMEN / Unknown Lab Venipuncture / Unknown 08/03/2015 4:14 AM CDT 08/03/2015 4:52 AM CDT Akira Romero MD LAB - CHEMISTRY MORGAN YEE Performing Organization Address City/[facility]/ZIP Co de Phone Number [facility] [address] [place] [address] * CULTURE STOOL+ E COLI SHIGA-LIKE TOXIN (08/02/2015 4:51 PM CDT) Culture No growth Salmonella, Shigella, Campylobacter , E. coli 0157:h7 or Yersinia CARLOS EDUARDO 08/04/2015 6:27 AM CDT [facility] Culture Negative E. coli Shiga-like toxin (NM) CARLOS EDUARDO 08/04/2015 6:27 AM CDT [facility] Stool STOOL SPECIMEN / Unknown Collection / Unknown 08/02/2015 4:51 PM CDT 08/02/2015 4:56 PM CDT Chucho Hinton MD LAB - MICROBIOLOGY O RDERAPOPEYE Performing Organization Address [facility]/ZIP Co de Phone Number [facility] [address] [phone] * (ABNORMAL) LIPID PROFILE (08/02/2015 10:02 AM CDT) Cholesterol 184 <200 mg/dL 08/02/2015 10:[address] [facility] Triglycerides 156(H) <150 mg/dL 08/02/2015 10:[address] [facility] HDL Cholesterol 43 >40 mg/dL 08/02/2015 10:[address] [facility] LDL Calculated 110 <130 mg/dL 08/02/2015 10:[address] [facility] VLDL Calculated 31(H) <=30 mg/dL 08/02/2015 10:[address] [facility] Chol HDL Ratio 4.3 <4.5 08/02/2015 10:[address] [facility] LDL/HDL Ratio 2.6 <5.0 08/02/2015 10:[address] [facility] Blood BLOOD SPECIMEN / Unknown Lab Venipuncture / Unknown 08/02/2015 10:02 AM CDT 08/02/2015 10:13 AM CDT Chucho Hinton MD LAB - CHEMISTRY MORGAN YEE [facility] [address] [place] [address] * ALCOHOL ETHYL BLOOD (08/02/2015 10:02 AM CDT) Ethanol <10 <10 mg/dL 08/02/2015 10:[address] [facility] Ethanol Calculated <0.100 gm/dL 08/02/2015 10:[address] [facility] Blood BLOOD SPECIMEN / Unknown Lab Venipuncture / Unknown 08/02/2015 10:02 AM CDT 08/02/2015 10:13 AM CDT Narr[address] [facility] - 08/02/2015 10:49 AM CDT Non Legal Serum Alcohol Chucho Hinton MD LAB - CHEMISTRY MORGAN YEE Performing Organization Address [facility] Co de Phone Number [facility] [address] [place] [address] * HGB HCT PANEL (08/02/2015 10:02 AM CDT) Hemoglobin 12.3 12.0 - 15.6 gm/dL 08/02/2015 10:[address] [facility] Hematocrit 37.6 35.9 - 45.5 % 08/02/2015 10:[address] [facility] Blood BLOOD SPECIMEN / Unknown Lab Venipuncture / Unknown 08/02/2015 10:02 AM CDT 08/02/2015 10:13 AM CDT Akira Romero MD LAB - HEMATOLOGY KUSH LANGFORD [facility] [address] [place] [address] * CT ABDOMEN AND PELVIS WITH IV [...] URINE (08/01/2015 7:35 PM CDT) Pathologist [facility] Culture 10,000-50,000 CFU/mL urogenital adelso CARLOS EDUARDO 08/03/2015 9:25 AM CDT [facility] Urine URINE SPECIMEN OBTAINED BY CLEAN CATCH PROCEDURE / Unknown Collection / Unknown 08/01/2015 7:35 PM CDT 08/01/2015 7:39 PM CDT Hari Niño MD LAB - MICROBIOLOGY O RDERABLES Performing Organization Address City/[facility]/ZIP Co de Phone Number [facility] [address] [place], [place] [id number] [place] [address] * (ABNORMAL) URINALYSIS MICROSCOPIC ONLY W/REFLEX CULTURE (08/01/2015 7:35 PM CDT) Pathologist [facility] Bacteria UA 1+(A) None Seen 08/01/2015 8:[address] [facility] Epithelial Cell UA 2-5 0-2, 2-5 # /hpf 08/01/2015 8:[address] [facility] Mucus UA Trace 08/01/2015 8:[address] [facility] Hyaline Casts 0-2 0 - 2 # /lpf 08/01/2015 8:[address] [facility] Calcium Oxalate Crystals 2+(A) None Seen 08/01/2015 8:[address] [facility] Urine URINE SPECIMEN OBTAINED BY CLEAN CATCH PROCEDURE / Unknown Collection / Unknown 08/01/2015 7:35 PM CDT 08/01/2015 7:39 PM CDT Hari Niño MD LAB - URINALYSIS ORD ERABLES Performing Organization Address City/[facility]/ZIP Co de Phone Number [facility] [address] [place] [address] * (ABNORMAL) URINALYSIS ROUTINE W/REFLEX TO CULTURE (08/01/2015 7:35 PM CDT) Pathologist [facility] Color UA Yellow Straw, Yellow, Dark Yellow 08/01/2015 7:[address] [facility] Clarity UA Clear 08/01/2015 7:[address] [facility] Specific [place] UA 1.019 1.005 - 1.030 08/01/2015 7:[address] [facility] pH UA 6.5 5.0 - 8.0 pH 08/01/2015 7:[address] [facility] Protein UA Negative Negative 08/01/2015 7:[address] [facility] Blood UA Negative Negative 08/01/2015 7:[address] [facility] Leukocyte UA 1+(A) Negative 08/01/2015 7:[address] [facility] Nitrite UA Negative Negative 08/01/2015 7:[address] [facility] Glucose UA Negative Negative 08/01/2015 7:[address] [facility] Ketone UA Negative Negative 08/01/2015 7:[address] [facility] Bilirubin UA Negative Negative 08/01/2015 7:[address] [facility] Urobilinogen UA 0.2 0.1 - 1.0 EU/dL 08/01/2015 7:[address] [facility] WBC UA Auto 2-5 0-2, 2-5 # /hpf 08/01/2015 7:[address] [facility] RBC UA Auto 2-5 0-2, 2-5 # /hpf 08/01/2015 7:[address] [facility] Reflex Status Culture to follow 08/01/2015 7:[address] [facility] Urine URINE SPECIMEN OBTAINED BY CLEAN CATCH PROCEDURE / Unknown Collection / Unknown 08/01/2015 7:35 PM CDT 08/01/2015 7:39 PM CDT Hari Niño MD LAB - URINALYSIS ORD ERABLES [facility] [address] [place] [address] * TYPE + SCREEN PANEL (08/01/2015 7:19 PM CDT) ABO A 08/01/2015 8:[address] [facility] Rh Type Positive 08/01/2015 8:[address] [facility] Comment:History check perfor med. Retype required. Antibody Screen Negative 08/01/2015 8:[address] [facility] Miscellaneous samples (specimen) BLOOD SPECIMEN / Unknown Venipuncture / Unknown 08/01/2015 7:19 PM CDT 08/01/2015 7:22 PM CDT Hari Niño MD LAB - BLOOD BANK ORD ERABLES Performing Organization Address [facility]/ZIP Co de Phone Number [facility] [address] * (ABNORMAL) LIPASE BLOOD (08/01/2015 6:50 PM CDT) Lipase 681(H) 10 - 220 U/L 08/01/2015 7:[address] [facility] Blood BLOOD SPECIMEN / Unknown Venipuncture / Unknown 08/01/2015 6:50 PM CDT 08/01/2015 6:54 PM CDT Hari Niño MD LAB - CHEMISTRY ORDE JOSELITO Performing Organization Address [facility] Co de Phone Number [facility] [address] [place] [address] * (ABNORMAL) COMPREHENSIVE METABOLIC PANEL (08/01/2015 6:50 PM CDT) Glucose 88 74 - 106 mg/dL 08/01/2015 7:[address] [facility] Sodium 137 136 - 145 mmol/L 08/01/2015 7:[address] [facility] Potassium 4.1 3.5 - 5.1 mmol/L 08/01/2015 7:[address] [facility] Chloride 106 98 - 107 mmol/L 08/01/2015 7:[address] [facility] CO2 21(L) 22 - 31 mmol/L 08/01/2015 7:[address] [facility] Calcium 9.3 8.5 - 10.1 mg/dL 08/01/2015 7:[address] [facility] Anion Gap 10 5 - 20 mmol/L 08/01/2015 7:[address] [facility] BUN 13 7 - 21 mg/dL 08/01/2015 7:14 PM CDT [facility] Creatinine 0.90 0.50 - 1.30 mg/dL 08/01/2015 7:14 PM CDT [facility] Alkaline Phosphatase 77 38 - 126 U/L 08/01/2015 7:14 PM CDT [facility] ALT 34 12 - 78 U/L 08/01/2015 7:[address] [facility] AST 13 5 - 40 U/L 08/01/2015 7:[address] [facility] Protein Total 7.9 6.4 - 8.2 gm/dL 08/01/2015 7:14 PM CDT [facility] Albumin 4.3 3.4 - 5.0 gm/dL 08/01/2015 7:[address] [facility] Bilirubin Total 0.2 0.2 - 1.0 mg/dL 08/01/2015 7:[address] [facility] eGFR by MDRD >60 >60 mL/min/1.7 3m2 08/01/2015 7:14 PM CDT [facility] eGFR by MDRD >60 >60 mL/min/1.7 3m2 08/01/2015 7:[address] [facility] Blood BLOOD SPECIMEN / Unknown Venipuncture / Unknown 08/01/2015 6:50 PM CDT 08/01/2015 6:54 PM CDT Hari Niño MD [facility] Organization Address City/State/[facility] Co de Phone Number [facility] [address] [place], [place] [phone] * (ABNORMAL) CBC W AUTO DIFFERENTIAL (08/01/2015 6:50 PM CDT) [facility] WBC 9.3 4.4 - 10.7 x10E9/L 08/01/2015 6:57 PM CDT [facility] WBC Corrected x10E9/L 08/01/2015 6:[address] [facility] RBC 5.35(H) 3.80 - 5.20 x10E12/L 08/01/2015 6:[address] [facility] Hemoglobin 15.1 12.0 - 15.6 gm/dL 08/01/2015 6:[address] [facility] Hematocrit 44.9 35.9 - 45.5 % 08/01/2015 6:[address] [facility] MCV 83.9 80.7 - 98.3 fl 08/01/2015 6:[address] [facility] MCH 28.2 26.7 - 34.0 pg 08/01/2015 6:[address] [facility] MCHC 33.6 30.8 - 35.9 gm/dL 08/01/2015 6:[address] [facility] Platelet Count 339 153 - 416 x10E9/L 08/01/2015 6:[address] [facility] RDW-CV 15.0(H) 12.1 - 14.9 % 08/01/2015 6:[address] [facility] MPV 8.3(L) 9.4 - 12.9 fl 08/01/2015 6:[address] [facility] LABORATORY Neutrophils % 54.0 44.0 - 73.0 % 08/01/2015 6:[address] [facility] Lymphocytes % 36.4 20.0 - 43.0 % 08/01/2015 6:[address] [facility] Monocytes % 7.1 5.0 - 13.0 % 08/01/2015 6:[address] [facility] Eosinophils % 1.0 0.0 - 6.0 % 08/01/2015 6:[address] [facility] Basophils % 1.0 0.0 - 2.0 % 08/01/2015 6:[address] [facility] Immature Granulocytes 0.5 0 - 1 % 08/01/2015 6:[address] [facility] Neutrophil Absolute 5.03 2.01 - 7.14 x10E9/L 08/01/2015 6:[address] [facility] Lymphocytes Absolute 3.39 1.07 - 3.94 x10E9/L 08/01/2015 6:[address] [facility] Monocytes Absolute 0.66 0.26 - 1.07 x10E9/L 08/01/2015 6:[address] [facility] Eosinophils Absolute 0.09 0 - 0.47 x10E9/L 08/01/2015 6:[address] [facility] Basophils Absolute 0.09(H) 0 - 0.08 x10E9/L 08/01/2015 6:[address] [facility] Immature Granulocytes Absolute 0.05 0.00 - 0.06 x10E9/L 08/01/2015 6:[address] [facility] nRBC Auto 0 /100 WBC 08/01/2015 6:[address] [facility] Blood BLOOD SPECIMEN / Unknown Venipuncture / Unknown 08/01/2015 6:50 PM CDT 08/01/2015 6:54 PM CDT Hari Niño MD LAB - HEMATOLOGY ORD ERABLES [facility] [address] [place], [place] [phone] documented in this encounter Visit Diagnoses Diagnosis [...] Given 08/01/2015 7:21 PM CDT 1,000 mL fjtcbnbxrj-xxkdeynownfnr-vgh feine (FIORICET) 50-325-40 MG tablet 1 Tab [...] (Anesthesia Volume Adjustment - Provider: Hari Guillory APRN-PILER)1114 ($ New Bag/Syringe - Provider: Janina Espinoza RN)2054 ($ New Bag/Syringe - Provider: Ghazala Deleon APRN-CLOTH BLEACHING RANGE BACK TENDER) 0651 ($ New Bag/Syringe - Provider: Ghazala Deleon HAND MOUNTER-CLOTH BLEACHING RANGE BACK TENDER) 0.9% NaCl infusion (CANCELED) at 20 mL/hr, Intravenous, CONTINUOUS, Starting on Sat08/03/15 at 0730, Until Sat08/03/15 at 0846, Pre-procedure (GI) 0700 ($ New Bag/Syringe - Provider: Peg Lorenzana RN)0754 (Anesthesia Volume Adjustment - Provider: Brionna Fournier HAND MOUNTER-PILER) PRN Medication Order 08/03/2015 08/04/2015 08/05/2015 ALPRAZolam [...] APRN-NOEMY)0521 ($ Given - Provider: Ghazala Deleon APRN-CLOTH BLEACHING RANGE BACK TENDER) HYDROmorphone (DILAUDID) injection 1 mg (CANCELED) 1 [...] 0125 ($ Given - Provider: Ghazala Deleon APRN-CLOTH BLEACHING RANGE BACK TENDER) ondansetron (ZOFRAN) injection 4 mg (CANCELED) 4 [...] at 1459 1453 ($ Given - Provider: Diaan Hickey RN)1911 ($ Given - Provider: Diana [...] med.) documented in this encounter Care Teams Shoe Lining Fitter Relationship Specialty Start Date End Date Jonathan Hartman, RN Justice Court Judge 07/14/15 documented as of this encounter
--- OUTSIDE RECORDS SUMMARY | 2024-04-29 20:12 | XMS_ITS | Encounter Summary ---
Author Organization [facility] Address [address] [facility] [place] [address] Care Team Providers Care Tool And Die Inspector Name Role Phone Jonathan Hartman RN Unavailable [phone] Reason for Visit * Reason Comments Refill Request Encounter Details Date Type Department Care Team (Late st Contact Info) Description 09/29/2015 Refill [facility] - [address] [address] Armando Corona MD [address] [place] [phone] Refill Request Social History Tobacco Use [...] Primary documented in this encounter Care Teams Tool And Die Inspector Relationship Specialty Start Date End Date Jonathan Hartman, RN Twist Maker 07/14/15 documented as of this encounter
--- OUTSIDE RECORDS SUMMARY | 2024-04-29 20:12 | XMS_ITS | Encounter Summary ---
Author Organization [facility] Address [address] [facility] [place] [address] Care Team Providers Care Disbursing Officer Name Role Phone Jonathan Hartman RN Unavailable [phone] Reason for Visit * Reason Onset Date Comments Follow-up 08/27/2015 Encounter Details Date Type Department Care Team (Late st Contact Info) Description 08/27/2015 Telephone [facility] PH[facility] [address] [place] [address] Preston Mixon MD [address] [place] [address] Follow-up Social History Tobacco Use Types [...] on filedocumented in this encounter Care Teams Disbursing Officer Relationship Specialty Start Date End Date Jonathan Hartman, RN Glass Robot Operator 07/14/15 documented as of this encounter
--- OUTSIDE RECORDS SUMMARY | 2024-04-29 20:12 | XMS_ITS | Encounter Summary ---
Author Organization [facility] Address [address] [place] [address] Care Team Providers Care Cook Box Filler Name Role Phone Jonathan Hartman Rhett RN Unavailable [phone] Encounter Details Date Type Department Care Team (Late st Contact Info) Description 11/11/2015 Orders Only [facility] - [address] [address] Armando Corona MD [address] [place] [phone] Abdominal pain, unspecified abdominal location Social [...] at 12:30NOON, on 12/15/15. Please register at: [facility] Endoscopy Department ([facility]) [address] [place] [address] FIRST STEPS: Notify us if you are [...] prescription has been sent to your pharmacy. back up machine operator the Golytely/Gavalyte bowel prep. Mix theGolytely/Gavalyte according [...] your exam). It is best if your taxi cab driver can wait during your procedure. There is a comfortable waiting area for their convenience. Thank you for allowing us to participate in your care. If you have any questions regarding this procedure or preparation for it, please call our office [phone] or [phone]. documented in this encounter Progress Notes * Harris Grider - 11/11/2015 1:49 PM CDT Pt sched for colon [facility] 12/15/15@12:30pm, mailed instructions to pt, rx sent to pharm, orders in [employer] [place] documented in this encounter Plan of Treatment Not on file documented as of this encounter Visit Diagnoses Diagnosis Abdominal pain, unspecified abdominal location- Primary documented in this encounter Care Teams Cook Box Filler Relationship Specialty Start Date End Date Jonathan Hartman RN Golf Course Patroller 07/14/15 documented as of this encounter
--- OUTSIDE RECORDS SUMMARY | 2024-04-29 20:12 | XMS_ITS | Encounter Summary ---
Author Organization [facility] Address [address] [facility] [place] [address] Care Team Providers Care Proof Load Mechanic Name Role Phone Jonathan Hartman RN Unavailable [phone] Reason for Visit * Reason Onset Date Comments Pain Abdominal 10/31/2015 patient seen in [facility] ED on 10/23 - questionable diverticulosis/diverticulitis. PCP will send copy of CT scan and Dr. Corona will advise on next visit. Encounter Details Date Type Department Care Team (Late st Contact Info) Description 10/31/2015 Telephone [facility] [address] [address] Armando Corona MD [facility] [address] [phone] Pain Abdominal (patient seen in [facility] ED on 10/23 - questionable diverticulosis/divertic ulitis. [...] office today with CT Scan results from [facility]. Per patient's unit secy, she will be seeing a specialist at [facility], Dr. Mayo and a specialist in [place] for her recent diagnosis of Meredith Danlos. Dr. Corona will review CT results and we will schedule patient for office appointment. documented in this encounter Plan of Treatment Not on file documented as of this encounter Visit Diagnoses Not on filedocumented in this encounter Care Teams Proof Load Mechanic Relationship Specialty Start Date End Date Jonathan Harmtan, RN Biophysics Teacher 07/14/15 documented as of this encounter
--- OUTSIDE RECORDS SUMMARY | 2024-04-29 20:12 | XMS_ITS | Encounter Summary ---
Author Organization [facility] Address [address] [facility] [place] [address] Care Team Providers Care Dials Inspector Name Role Phone Jonathan Hartman RN Unavailable [phone] Reason for Visit * Reason Comments Establish Care Encounter Details Date Type Department Care Team (Late st Contact Info) Description 11/18/2015 2:20 PM CDT Office Visit [facility] - Internal Medicine [address] [place] [phone] Daljit Munoz MD [address] [place] [phone] Routine general medical examination at a health [...] told to see a unknown doctor in [place] - had bilateral knee surgery while in [...] Xanax and Cymbalta - has PCP in [place] but would like to transfer her care to a doctor in [place] Review of Systems - General ROS: negative [...] hypermobile type Will see unknown doctor in [place] 4. Rheumatoid arthritis involving multiple sites, unspecified rheumatoid factor presence Managed by Dr. Heath - hydroxychloroquine (PLAQUENIL) 200 MG tablet; 1 Tab once daily 5. Migraine without aura and without status migrainosus, not intractable Stable, managed by PCP in [place] - ondansetron, disintegrating, (ZOFRAN ODT) 4 MG tablet; 1 Tab 2 times daily as needed - SUMAtriptan Succinate 6 MG/0.5ML; 1 injection at onset of migraine, may repeat 1 hour later if needed. Max 2 injections per 24 hours; Refill: 0 - slmfnanmbn-lyyppuypctmvq-jlxturnf (FIORICET) 50-325-40 MG tablet; 1 Tab every 4 hours as needed for Headache Dispense: 90 Tab; Refill: 1 6. Chronic constipation Managed by Dr Corona 7. FERNANDA (generalized anxiety disorder) Stable, managed by PCP in [place] Health Maintenance Topic Date Due ??? DTAP/TDAP/TD [...] due to knee issues, pt sees Dr Airas. BP 124/82 mmHg Pulse 108 Resp 14 [...] disorder documented in this encounter Care Teams Dials Inspector Relationship Specialty Start Date End Date Jonathan Hartman RN Sales Account Leader 07/14/15 documented as of this encounter
--- OUTSIDE RECORDS SUMMARY | 2024-04-29 20:12 | XMS_ITS | Encounter Summary ---
Author Organization [facility] Address [address] [facility] [place] [address] Care Team Providers Care Chemical Process Operator Name Role Phone Jonathan Hartman RN Unavailable [phone] Reason for Visit * Reason Comments Pain Abdominal AP for 3 days admitt ed on 07/31 for same/hx diverticulitis/had recent endoscopy/stools have been black and tarry GI Bleeding * Auth/Cert Specialty Diagnoses / Procedures Referred By Kaylynn t Referred To Contact Referral ID Status Reason Start Date Expiration Date Visits Re quested Visits Authorized [id number] 1 1 Encounter Details Date Type Department Care Team (Late st Contact Info) Description 08/12/2015 7:45 PM CDT - 08/13/2015 12:29 AM CDT Emergency ER at [facility] [address] [place] [address] [place] [address] [place] [address] Abdominal pain, generalized (Primary Dx) Discharge Disposition: [...] prescribed medicine as directed. ?? Only take ndwv-bjd-eovyzce or prescription medicines for pain, discomfort, or [...] Document Reviewed: 03/06/2010 ExitCare?? Patient Information ??2013 Siri. documented in this encounter Medications at Time [...] with the patient: 08/12/2015 20:05 Madalyn Walton [id number] [facility] EMERGENCY DEPARTMENT History Chief Complaint Patient [...] hours as needed 30 Tab 0 ??? cnsaywkdjd-nffplfodskcsy-iszbysws (FIORICET) 50-325-40 MG tablet Take 1 Tab [...] 61.6 44.0-73.0 % Lymph 31.0 20.0-43.0 % [place] 5.5 5.0-13.0 % Eos 0.8 0.0-6.0 % Baso 0.7 0.0-2.0 % Immature Grans 0.4 0-1 % Neutro Abs 5.86 2.01-7.14 x10E9/L Lymph Abs 2.95 1.07-3.94 x10E9/L [place] Abs 0.52 0.26-1.07 x10E9/L Eosin Abs 0.08 [...] Dark Yellow Clarity UA Slt Cloudy Specific Tea UA 1.020 1.005-1.030 pH UA 6.5 5.0-8.0 [...] patient to follow-up with: Armando Corona MD [address] [phone] Call in 1 day If symptoms worsen return to the ED Preston Mixon MD [address] [address] Call in 1 day If [...] adelso CARLOS EDUARDO 08/14/2015 9:13 AM CDT [facility]CRO[facility] Urine URINE SPECIMEN OBTAINED BY CLEAN CATCH PROCEDURE / Unknown 08/12/2015 9:16 PM CDT 08/12/2015 9:19 PM CDT Eleno Mcclure DO LAB - MICROBIOLOGY O RDERABLES [facility]CRO[facility] [address] [place] [phone] * (ABNORMAL) URINALYSIS MICROSCOPIC ONLY W/REFLEX CULTURE (08/12/2015 9:16 PM CDT) RBC UA 0-2 0-2, 2-5 # /hpf 08/12/2015 9:29 PM CDT [facility] WBC UA 2-5 0-2, 2-5 # /hpf 08/12/2015 9:29 PM CDT [facility] Bacteria UA 2+(A) None Seen 08/12/2015 9:29 PM CDT [facility] Epithelial Cell UA 10-20(A) 0-2, 2-5 # /hpf 08/12/2015 9:29 PM CDT [facility] Calcium Oxalate Crystals 1+(A) None Seen 08/12/2015 9:29 PM CDT [facility] Urine URINE SPECIMEN OBTAINED BY CLEAN CATCH PROCEDURE / Unknown 08/12/2015 9:16 PM CDT 08/12/2015 9:19 PM CDT Narrative [facility] - 08/12/2015 9:29 PM CDT *Microscopic performed on un-spun urine; <3mL urine submitted Eleno Sears Ren JARQUIN LAB - URINALYSIS ORD ERABLES Performing Organization Address City/[facility]/ZIP Co de Phone Number [facility] [address] [place], [place] [phone] * (ABNORMAL) URINALYSIS ROUTINE W/REFLEX TO CULTURE (08/12/2015 9:16 PM CDT) Color UA Yellow Straw, Yellow, Dark Yellow 08/12/2015 9:24 PM CDT [facility] Clarity UA Slt Cloudy 08/12/2015 9:24 PM CDT [facility] Specific Tea UA 1.020 1.005 - 1.030 08/12/2015 9:24 PM CDT [facility] pH UA 6.5 5.0 - 8.0 pH 08/12/2015 9:24 PM CDT [facility] Protein UA Trace(A) Negative 08/12/2015 9:24 PM CDT [facility] Blood UA Trace(A) Negative 08/12/2015 9:24 PM CDT [facility] Leukocyte UA Trace(A) Negative 08/12/2015 9:24 PM CDT [facility] Nitrite UA Negative Negative 08/12/2015 9:24 PM CDT [facility] Glucose UA Negative Negative 08/12/2015 9:24 PM CDT [facility] Ketone UA Trace(A) Negative 08/12/2015 9:24 PM CDT [facility] Bilirubin UA Negative Negative 08/12/2015 9:24 PM CDT [facility] Urobilinogen UA 0.2 0.1 - 1.0 EU/dL 08/12/2015 9:24 PM CDT [facility] Reflex Status Culture to follow 08/12/2015 9:24 PM CDT [facility] Urine URINE SPECIMEN OBTAINED BY CLEAN CATCH PROCEDURE / Unknown 08/12/2015 9:16 PM CDT 08/12/2015 9:19 PM CDT Eleno Mcclure DO LAB - URINALYSIS ORD ERABLES Performing Organization Address City/[facility]/ZIP Co de Phone Number [facility] [address] [place], [place] [phone] * HCG URINE QUALITATIVE - POINT OF CARE (IP) (08/12/2015 8:20 PM CDT) HCG Qual Urine Negative Negative [facility] POCT TESTING QC Verified Yes Yes [facility] POC T TESTING Urine specimen (specimen) URINE / Unknown 08/12/2015 8:20 PM CDT Eleno Mcclure DO LAB - POINT OF CARE ORDERABLES Performing Organization Address City/[facility]/[place] Co de Phone Number [facility] POCT TESTING [address] [phone] * EKG 12-LEAD (08/12/2015 7:36 PM CDT) Ventricular Rate 102 BPM [facility] MUSE Atrial Rate 102 BPM [facility] P-R Interval 124 ms [facility] QRS Duration ms 72 ms [facility] Q-T Interval ms 342 ms [facility] QTC Calculation (Bezet) 445 ms [facility]USE Calculated P [place] 45 degrees [facility] MUSE Calculated R [place] 49 degrees [facility] MUSE Calculated T [place] 28 degrees [facility] Interpretation EKG SINUS TACHYCARDIA OTHERWISE NORMAL ECG NO PREVIOUS ECGS AVAILABLE Confirmed by Prerna Hull ([id number]) on 08/13/2015 7:52:18 AM [facility] MUSE 08/12/2015 7:36 PM CDT 08/13/2015 7:52 AM CDT Eleno Mcclure DO ECG ORDERABLES Performing Organization Address City/[facility]/[place] Co de Phone Number [facility] * PT-INR (08/12/2015 7:29 PM CDT) PT 9.9 9.5 - 11.6 sec 08/12/2015 7:58 PM CDT [facility] INR 1.0 0.9 - 1.1 08/12/2015 7:58 PM CDT [facility] Blood BLOOD SPECIMEN / Unknown Venipuncture / Unknown 08/12/2015 7:29 PM CDT 08/12/2015 7:44 PM CDT Narrative [facility] - 08/12/2015 7:58 PM CDT Conventional Warfarin Anticoagulant Therapy: INR Reference Range: ??2.0-3.0 Intensive Warfarin Anticoagulant Therapy: INR Reference Range: ? 2.5-3.5 Eleno Mcclure DO LAB - COAGULATION OR DERABLES [facility] [address] [place] [address] * (ABNORMAL) COMPREHENSIVE METABOLIC PANEL (08/12/2015 7:29 PM CDT) [facility] Signature Glucose 87 74 - 106 mg/dL 08/12/2015 8:01 PM CDT [facility] Sodium 135(L) 136 - 145 mmol/L 08/12/2015 8:01 PM CDT [facility] Potassium 3.8 3.5 - 5.1 mmol/L 08/12/2015 8:01 PM CDT [facility] Chloride 106 98 - 107 mmol/L 08/12/2015 8:01 PM CDT [facility] CO2 24 22 - 31 mmol/L 08/12/2015 8:01 PM CDT [facility] Calcium 9.1 8.5 - 10.1 mg/dL 08/12/2015 8:01 PM CDT [facility] Anion Gap 5 5 - 20 mmol/L 08/12/2015 8:01 PM CDT [facility] BUN 9 7 - 21 mg/dL 08/12/2015 8:01 PM CDT [facility] Creatinine 0.92 0.50 - 1.30 mg/dL 08/12/2015 8:01 PM CDT [facility] Alkaline Phosphatase 85 38 - 126 U/L 08/12/2015 8:01 PM CDT [facility] ALT 77 12 - 78 U/L 08/12/2015 8:01 PM CDT [facility] AST 44(H) 5 - 40 U/L 08/12/2015 8:01 PM CDT [facility] Protein Total 7.9 6.4 - 8.2 gm/dL 08/12/2015 8:01 PM CDT [facility] Albumin 4.0 3.4 - 5.0 gm/dL 08/12/2015 8:01 PM CDT [facility] Bilirubin Total 0.2 0.2 - 1.0 mg/dL 08/12/2015 8:01 PM CDT [facility] eGFR by MDRD >60 >60 mL/min/1.7 3m2 08/12/2015 8:01 PM CDT [facility] eGFR by MDRD >60 >60 mL/min/1.7 3m2 08/12/2015 8:01 PM CDT [facility] Blood BLOOD SPECIMEN / Unknown Venipuncture / Unknown 08/12/2015 7:29 PM CDT 08/12/2015 7:44 PM CDT Eleno Mcclure DO LAB - CHEMISTRY MORGAN YEE [facility] [address] [place] [address] * (ABNORMAL) CBC W AUTO DIFFERENTIAL (08/12/2015 7:29 PM CDT) WBC 9.5 4.4 - 10.7 x10E9/L 08/12/2015 7:47 PM CDT [facility] WBC Corrected x10E9/L 08/12/2015 7:47 PM CDT [facility] RBC 5.10 3.80 - 5.20 x10E12/L 08/12/2015 7:47 PM CDT [facility] Hemoglobin 14.3 12.0 - 15.6 gm/dL 08/12/2015 7:47 PM CDT [facility] Hematocrit 43.5 35.9 - 45.5 % 08/12/2015 7:47 PM CDT [facility] MCV 85.3 80.7 - 98.3 fl 08/12/2015 7:47 PM CDT [facility] MCH 28.0 26.7 - 34.0 pg 08/12/2015 7:47 PM CDT [facility] MCHC 32.9 30.8 - 35.9 gm/dL 08/12/2015 7:47 PM CDT [facility] Platelet Count 301 153 - 416 x10E9/L 08/12/2015 7:47 PM CDT [facility] RDW-CV 15.3(H) 12.1 - 14.9 % 08/12/2015 7:47 PM CDT [facility] MPV 8.7(L) 9.4 - 12.9 fl 08/12/2015 7:47 PM CDT [facility] Neutrophils % 61.6 44.0 - 73.0 % 08/12/2015 7:47 PM CDT [facility] Lymphocytes % 31.0 20.0 - 43.0 % 08/12/2015 7:47 PM CDT [facility] Monocytes % 5.5 5.0 - 13.0 % 08/12/2015 7:47 PM CDT [facility] Eosinophils % 0.8 0.0 - 6.0 % 08/12/2015 7:47 PM CDT [facility] Basophils % 0.7 0.0 - 2.0 % 08/12/2015 7:47 PM CDT [facility] Immature Granulocytes 0.4 0 - 1 % 08/12/2015 7:47 PM CDT [facility] Neutrophil Absolute 5.86 2.01 - 7.14 x10E9/L 08/12/2015 7:47 PM CDT [facility] Lymphocytes Absolute 2.95 1.07 - 3.94 x10E9/L 08/12/2015 7:47 PM CDT [facility] Monocytes Absolute 0.52 0.26 - 1.07 x10E9/L 08/12/2015 7:47 PM CDT [facility] Eosinophils Absolute 0.08 0 - 0.47 x10E9/L 08/12/2015 7:47 PM CDT [facility] Basophils Absolute 0.07 0 - 0.08 x10E9/L 08/12/2015 7:47 PM CDT [facility] Immature Granulocytes Absolute 0.04 0.00 - 0.06 x10E9/L 08/12/2015 7:47 PM CDT [facility] nRBC Auto 0 /100 WBC 08/12/2015 7:47 PM CDT [facility] Blood BLOOD SPECIMEN / Unknown Venipuncture / Unknown 08/12/2015 7:29 PM CDT 08/12/2015 7:44 PM CDT Eleno Mcclure DO LAB - HEMATOLOGY ORD ERABLES [facility] [address] [place] [address] documented in this encounter Visit Diagnoses Diagnosis [...] RN) documented in this encounter Care Teams Chemical Process Operator Relationship Specialty Start Date End Date Jonathan Hartman RN Marketing/Sales Person 07/14/15 documented as of this encounter
--- OUTSIDE RECORDS SUMMARY | 2024-04-29 20:12 | XMS_ITS | Encounter Summary ---
Author Organization [facility] Address [address] [place] [address] [address] Prov[address] Care Ct Mri Technologist Name Role Phone Minnie Jonathan Delaney RN Unavailable [phone] Feliciano Dash MD Primary Care Provider [phone] Reason for Visit * Auth/Cert Specialty Diagnoses / Procedures Referred By Kaylynn t Referred To Contact Diagnoses Abdominal pain, unspecified abdominal location Abdominal pain, unspecified abdominal location Procedures COLONOSCOPY SCREEN Referral ID Status Reason Start Date Expiration Date Visits Re quested Visits Authorized [id number] 1 1 Encounter Details Date Type Department Care Team (Latest Contact Info) Description 12/15/2015 11:08 AM CDT - 12/15/2015 1:35 PM CDT Hospital Encounter [facility] [address] [place] [id number] Armando Corona MD [address] [place] [address] [place] [id number] Surgery General Discharge Disposition: Home or [...] Case Report Surgical Pathology Report ? Case: [id number] ? Authorizing Provider: ??Armando Corona MD ?Collected: ? 12/15/2015 12:34 PM ? Ordering Location: ? [facility] ?Received: ?12/16/2015 09:42 AM ? Pathologist: ? Doris Morrison MD ? Specimen: ?Colon Biopsy, random colon biopsy ? 12/17/2015 10:19 AM T [facility] Final Diagnosis 1. ??Large intestine, random colon, endoscopic biopsy: -- ??No histopathologic abnormality OBEY/tao 12/17/2015 10:19 AM [facility] Gross Description Received in formalin in a container labeled Madalyn Walton, random colon biopsy. ??The container holds multiple pink-baird tissue fragments measuring from 0.2 cm up to 0.4 cm. The specimen is entirely submitted in a cassette labeled A1. DYT/eloy 12/17/2015 10:19 AM T [facility] Microscopic Description Histologic sections show fragments of large intestinal mucosa without specific histopathologic abnormality. ??There is no evidence of lymphocytic or collagenous colitis. ??There is no evidence of dysplasia or malignancy. ?? OBEY/tao 12/17/2015 10:19 AM [facility] Pathology/Cytolo gy COLONIC BIOPSY SPECIMEN / Unknown 12/15/2015 12:34 PM CDT 12/16/2015 9:42 AM CDT Armando Corona MD LAB - PATHOLOGY/CYTO LOGY ORDERABLES [facility] [address] [place] [address] * ENDOSCOPY, COLON, SCREENING (12/15/2015 12:23 PM CDT) Report Endoscopy POC _ Patient Name: Madalyn Walton ? Procedure Date: 12/15/2015 12:23 PM ? Date of : 1975 ?Admit Type: Outpatient Age: 40 ? Gender: Female Attending MD: Armando Corona , ? _ Procedure: ? Colonoscopy Indications: ? Lower abdominal pain Providers: ? Armando Corona (Doctor), Enma Wong, ? Reforestation Worker Patient Profile: ?? 40F pmh 40F pmh [...] Procedure Code(s): ? --- Professional --- ? 11387, Colonoscopy, flexible; with biopsy, single or multiple ? --- Technical --- ? 40803, Colonoscopy, flexible; with biopsy, single or multiple Diagnosis Code(s): ? --- Professional --- ? R10.30, Lower abdominal pain, unspecified ? --- Technical --- ? R10.30, Lower abdominal pain, unspecified CPT copyright 2015 [employer]. All rights reserved. The codes documented in this report are preliminary and upon wood tile installation helper review may be revised to meet current compliance requirements. Armando Corona, 12/15/2015 12:47:51 PM This report has been signed electronically. Number of Addenda: 0 Note Initiated On: 12/15/2015 12:23 PM [facility] 12/15/2015 12:2 3 PM CDT Narrative Transcriptions Armando Corona MD - 12/15/2015 12:53 PM CDT Neg colon s/p random bx Armando Corona MD GI PROCEDURE ORDERAB LES Performing Organization Address City/[facility] Co de Phone Number [facility] * HCG URINE QUALITATIVE - POINT OF CARE (IP) (12/15/2015 11:35 AM CDT) HCG Qual Urine Negative Negative [facility] POCT TESTING QC Verified Yes Yes [facility] POC T TESTING Urine specimen (specimen) URINE / Unknown 12/15/2015 11:35 AM CDT Armando Corona MD LAB - POINT OF CARE ORDERABLES Performing Organization Address [facility] Co de Phone Number [facility] POCT TESTING [address] [phone] documented in this encounter Visit Diagnoses Diagnosis [...] (Anesthesia Volume Adjustment - Provider: Kenan García APRN-CREATIVE PERFUMER) documented in this encounter Care Teams Ct Mri Technologist Relationship Specialty Start Date End Date Feliciano Dash MD [address] [facility] [address] [place] [address] PCP - General Internal Medicine 12/15/15 06/11/21 Jonathan Hartman RN Baking Factory Worker 07/14/15 documented as of this encounter
--- OUTSIDE RECORDS SUMMARY | 2024-04-29 20:12 | XMS_ITS | Encounter Summary ---
Author Organization [facility] Address [address] [facility] [place] [address] Care Team Providers Care Sql Tech Name Role Phone Jonathan Hartman RN Unavailable [phone] Reason for Visit * Reason Comments Pain Abdominal c/o periumbilical pa in x 3 days. Black diarrhea, increased pain today. Nausea. No vomiting. * Auth/Cert Specialty Diagnoses / Procedures Referred By Contac t Referred To Contact Diagnoses Acute pancreatitis, unspecified pancreatitis type Referral ID Status Reason Start Date Expiration Date Visits Re quested Visits Authorized [id number] 1 1 Encounter Details Date Type Department Care Team (Late st Contact Info) Description 08/01/2015 6:48 PM CDT - 08/05/2015 1:58 PM CDT Emergency [address] [facility] [address] [place] [address] Hari Niño MD [address] [place] [address] Akira Romero MD [address] [place] [address] Chucho Hinton MD [address] [facility] [address] [place] [address] Emergency Medicine Discharge Disposition: Home or Self [...] daily as needed for Anxiety Chucho Hinton umizexzylc-tawrsndidfnxo-ptzavkas 50-325-40 MG tablet Commonly known as: FIORICET [...] Answer Comments Your discharge diagnosis is Diverticulitis [410208] Follow up with Primary Care Provider (PCP) [...] understood by pt and scripts filled by [place] [facility]. Pt discharged home. * Chucho Hinton [...] tablet 0.25 mg, Oral, TID PRN ?? duduexupwa-audosqrcyjtif-qnhacknt (FIORICET) 50-325-40 MG tablet 1 Tab, Oral, [...] tablet 650 mg, Oral, q4h PRN ?? qblgswmkyq-inyetafkfxsxn-aiefulsa (FIORICET) 50-325-40 MG tablet 1 Tab, Oral, [...] tablet 650 mg, Oral, q4h PRN ?? lxblxshaas-wxotbmgfybloj-vwuxbhcx (FIORICET) 50-325-40 MG tablet 1 Tab, Oral, [...] liquid diet. Continues c/o abdominal pain, refuses Darling, states Darling doesn't really help her. Pt wants to wait until Dilaudid is due again. * Chari Fontenot RN - 08/03/2015 5:34 AM CDT Shift summary: abdominal pain overnight treated with Darling and Dilaudid. Per pt pain never completely gone but reaches tolerable level. Npo for procedure this am, consent in chart. * Mary Castanon RN - 08/02/2015 7:29 PM CDT Shift highlights: VSS. C/o abdominal pain throughout the day. Dilaudid and Darling given as ordered. C/o migraine once today. [...] Contact Information Primary Emergency Contact: Toi Smith [facility] Relation: Significant other Anticipated Discharge [...] needs please contact: Madalyn Medina RN CM [phone]. Digital Design Engineer Name/Phone number: Madalyn Medina RN * Jaky [...] Oral q4h PRN Hari Niño MD ??? tmltlnfzwl-qwafyciosdavj-dxihazqk (FIORICET) 50-325-40 MG tablet 1 Tab 1 [...] Oral q4h PRN Hari Niño MD ??? ylkqtvrtta-kjdrcucpvidun-nonmjtjq (FIORICET) 50-325-40 MG tablet 1 Tab 1 [...] results for input(s): MAGMGDL in the last 62676 hours. No results for input(s): PHOS in the last 39315 hours. No results for input(s): AMYLASE in the last 68945 hours. No results for input(s): PHART, AEW8HKH, PO2ART, Q8MHISNW, BEART, FIO2 in the last 81114 hours. Invalid input(s): LTK9YYP No results for input(s): BNP in the last 59298 hours. Recent Labs Component Name 07/14/15 1343 CDIFFTOXINAB Negative No results for input(s): HGBA1C in the last 59792 hours. No results for input(s): INR in the last 45604 hours. Recent Labs Component Name 08/02/15 1002 CHOL 184 TRIG 156* HDL 43 LDLCALC 110 No results for input(s): PT in the last 98258 hours. No results for input(s): PTT in the last 89863 hours. No results for input(s): T3FREE in the last 01598 hours. No results for input(s): T4FREE in the last 45149 hours. No results for input(s): TSH in the last 12025 hours. Recent Labs Component Name 08/01/15 1935 [...] CDTAssociated Order(s): IP CONSULT TO PASTORAL CARE Estimating Engineer support to the patient was requested/provided. * [...] Oral q4h PRN Hari Niño MD ??? mpzxpbedrr-ljhvsldnyobpn-melxjuzg (FIORICET) 50-325-40 MG tablet 1 Tab 1 [...] (TYLENOL) tablet 650 mg, Oral, q4h PRN peuqmeuffm-askagxuupufzr-jtgptotr (FIORICET) 50-325-40 MG tablet 1 Tab, Oral, [...] results for input(s): INR in the last 02657 hours. No results for input(s): AMYLASE in the last 50181 hours. Recent Labs Component Name 08/01/15 1850 [...] you have further questions. Armando Corona MD [facility], Gastroenterology [facility] office: [phone] Exchange: [phone] documented in this encounter Nursing Notes * [...] with the patient: 08/01/2015 18:48 Madalyn Walton [id number] [facility] EMERGENCY DEPARTMENT History Chief Complaint Patient [...] 54.0 44.0-73.0 % Lymph 36.4 20.0-43.0 % Eagle 7.1 5.0-13.0 % Eos 1.0 0.0-6.0 % Baso 1.0 0.0-2.0 % Immature Grans 0.5 0-1 % Neutro Abs 5.03 2.01-7.14 x10E9/L Lymph Abs 3.39 1.07-3.94 x10E9/L Eagle Abs 0.66 0.26-1.07 x10E9/L Eosin Abs 0.09 [...] Yellow, Dark Yellow Clarity UA Clear Specific [place] UA 1.019 1.005-1.030 pH UA 6.5 5.0-8.0 [...] structures are otherwise normal. ?? PRELIMINARY REPORT [facility] Patient Name: ISABEL FROST Age: 28 Patient MR NO: [id number] Referring Doctor: Dr. Dickerson Patient Location: Emergency [...] No large ovarian cysts To Talk to Radiologist([phone] [phone] Leeroy Ching M.D. Electronically Signed Progress Notes 6:49 PM Plan: Labs, CT abdomen/pelvis. 9:35 PM Call out to IPC. 9:36 PM I reevaluated the patient???s medical condition, comfort, and provided a care update. Informed patient and family of admission. 10:33 PM I discussed with Dr. Romero ([facility]) all pertinent aspects of the case including [...] - 98.3 fl 08/05/2015 7:28 AM CDT [facility] MCH 28.3 26.7 - 34.0 pg 08/05/2015 7:28 AM CDT [facility] MCHC 32.6 30.8 - 35.9 gm/dL 08/05/2015 7:28 AM CDT [facility] Platelet Count 232 153 - 416 x10E9/L 08/05/2015 7:28 AM CDT [facility] RDW-CV 14.5 12.1 - 14.9 % 08/05/2015 7:28 AM CDT [facility] MPV 8.6(L) 9.4 - 12.9 fl 08/05/2015 7:28 AM CDT [facility] Neutrophils % 39.6(L) 44.0 - 73.0 % 08/05/2015 7:28 AM CDT [facility] Lymphocytes % 52.4(H) 20.0 - 43.0 % 08/05/2015 7:28 AM CDT [facility] Monocytes % 5.5 5.0 - 13.0 % 08/05/2015 7:28 AM CDT [facility] Eosinophils % 1.1 0.0 - 6.0 % 08/05/2015 7:28 AM CDT [facility] Basophils % 0.9 0.0 - 2.0 % 08/05/2015 7:28 AM CDT [facility] Immature Granulocytes 0.5 0 - 1 % 08/05/2015 7:28 AM CDT [facility] Neutrophil Absolute 1.73(L) 2.01 - 7.14 x10E9/L 08/05/2015 7:28 AM CDT [facility] Lymphocytes Absolute 2.29 1.07 - 3.94 x10E9/L 08/05/2015 7:28 AM CDT [facility] Monocytes Absolute 0.24(L) 0.26 - 1.07 x10E9/L 08/05/2015 7:28 AM CDT [facility] Eosinophils Absolute 0.05 0 - 0.47 x10E9/L 08/05/2015 7:28 AM CDT [facility] Basophils Absolute 0.04 0 - 0.08 x10E9/L 08/05/2015 7:28 AM CDT [facility] Immature Granulocytes Absolute 0.02 0.00 - 0.06 x10E9/L 08/05/2015 7:28 AM CDT [facility] nRBC Auto 0 /100 WBC 08/05/2015 7:28 AM CDT [facility] Blood BLOOD SPECIMEN / Unknown Lab Venipuncture / Unknown 08/05/2015 7:09 AM CDT 08/05/2015 7:21 AM CDT Armando Corona MD LAB - HEMATOLOGY ORD ERABLES Performing Organization Address [facility] Co de Phone Number [facility] [address] [place] [address] * HEMOGLOBIN (08/04/2015 11:16 AM CDT) Hemoglobin 12.6 12.0 - 15.6 gm/dL 08/04/2015 11:28 AM CDT [facility] Blood BLOOD SPECIMEN / Unknown Lab Venipuncture / Unknown 08/04/2015 11:16 AM CDT 08/04/2015 11:22 AM CDT Armando Corona MD LAB - HEMATOLOGY ORD ERABLES Performing Organization Address City/[facility] de Phone Number [facility] [address] [place] [address] * GROSS + MICRO EXAM (STL) (08/04/2015 9:31 AM CDT) Case Report Surgical Pathology Report ? Case: [id number] ? Authorizing Provider: ??Armando Corona MD ? Collected: ? 08/04/2015 09:31 AM ? Ordering Location: ? [facility] ?Received: ?08/04/2015 12:25 PM ? Pathologist: ? Kamilla Bustamante MD ? Specimen: ?Polyp Descending, Descending colon polyp ? 08/05/2015 11:25 AM CDT [facility] Final Diagnosis 1. ??Descending colon, polyp, biopsy: -- ??Hyperplastic polyp SR/al 08/05/2015 11:25 AM CDT [facility] Gross Description Received in formalin in a container labeled Walton, Madalyn, descending colon polyp. ??The container holds a 0.5 x 0.4 x 0.3 cm baird tissue fragment. ??The specimen is entirely submitted in a cassette labeled A1. ?? DYT/rtc 08/05/2015 11:25 AM CDT [facility] Microscopic Description Microscopic examination reveals colonic mucosal fragment with hyperplastic polyp changes. Malignancy is not seen. /al 08/05/2015 11:25 AM CDT [facility] Pathology/Cytolo gy POLYP / Unknown 08/04/2015 9:31 AM CDT 08/04/2015 12:25 PM CDT Armando Corona MD LAB - PATHOLOGY/CYTO LOGY ORDERABLES [facility] [address] [place] [address] * ENDOSCOPY, COLON, DIAGNOSTIC (08/04/2015 [...] Procedure Code(s): ? --- Professional --- ? 49032, Colonoscopy, flexible; with removal of tumor(s), polyp(s), or ? other lesion(s) by snare technique ? --- Technical --- ? 03637, Colonoscopy, flexible; with removal of tumor(s), polyp(s), [...] abscess ? without bleeding CPT copyright 2015 [employer]. All rights reserved. The codes documented in this report are preliminary and upon remote coders review may be revised to meet current compliance requirements. Armando Corona, 08/04/2015 9:38:09 AM This report has been signed electronically. Number of Addenda: 0 Note Initiated On: 08/04/2015 9:04 AM [facility] 08/04/2015 9:04 AM CDT Narrative Transcriptions Armando Corona MD - 08/04/2015 9:39 AM CDT Colonoscopy * fair prep *few diverticuli * no old or fresh blood * normal terminal ileum rec PRN hyoscyamine Capsule endoscopy today Armando Corona MD GI PROCEDURE ORDERAB LES [facility] * GROSS + MICRO EXAM (STL) (08/03/2015 7:54 AM CDT) Case Report Surgical Pathology Report ? Case: [id number] ? Authorizing Provider: ??Armando Corona MD ? Collected: ? 08/03/2015 07:54 AM ? Ordering Location: ? [facility] ?Received: ?08/03/2015 12:09 PM ? Pathologist: ? Kamilla Bustamante MD ? Specimen: ?Gastric Biopsy ? 08/04/2015 10:17 AM CDT [facility] Final Diagnosis 1. ??Gastric biopsy: -- ??Chronic gastritis -- ??H. pylori stain negative for bacterial organisms /[facility] 08/04/2015 10:17 AM T [facility] Gross Description The specimen is received fixed in formalin in 1 container labeled with the patient's name, and gastric biopsy and contains three soft baird-yellow tissue fragments each measuring 0.3 cm in greatest dimension. The specimen is strained through a mesh bag and submitted in toto in cassette A1. /[facility] 08/04/2015 10:17 AM CDT [facility] Microscopic Description Microscopic examination reveals gastric antrum and body mucosal fragments with patchy chronic gastritis. Metaplasia, dysplasia, malignancy and granulomas are not seen. H. pylori stain is negative for bacterial organisms. All of the stain(s), control slide(s) and test tissue slide(s) were judged as technically acceptable. /[facility] 08/04/2015 10:17 AM CDT [facility] Pathology/Cytolo gy GASTRIC BIOPSY SPECIMEN / Unknown 08/03/2015 7:54 AM CDT 08/03/2015 12:09 PM CDT Armando Corona MD LAB - PATHOLOGY/CYTO LOGY ORDERABLES [facility] [address] [place] [address] * EGD (08/03/2015 7:24 AM [...] (Doctor), Roxi Bennett RN, Sona Dove, ? Straight Slicing Machine Operator Patient Profile: ?? 40F pmh [...] Procedure Code(s): ? --- Professional --- ? 53305, Esophagogastroduod enoscopy, flexible, transoral; with biopsy, ? single or multiple ? --- Technical --- ? 56633, Esophagogastroduod enoscopy, flexible, transoral; with biopsy, ? single or multiple Diagnosis Code(s): ? --- Professional --- ? K29.70, Gastritis, unspecified, without bleeding ? R10.13, Epigastric pain ? R10.33, Periumbilical pain ? K92.1, Melena (includes Hematochezia) ? --- Technical --- ? K29.70, Gastritis, unspecified, without bleeding ? R10.13, Epigastric pain ? R10.33, Periumbilical pain ? K92.1, Melena (includes Hematochezia) CPT copyright 2015 [employer]. All rights reserved. The codes documented in this report are preliminary and upon remote coders review may be revised to meet current compliance requirements. Armando Corona, 08/03/2015 8:00:13 AM This report has been signed electronically. Number of Addenda: 0 Note Initiated On: 08/03/2015 7:24 AM [facility] 08/03/2015 7:24 AM CDT Narrative Transcriptions Armando Corona MD - 08/03/2015 8:00 AM CDT EGD - mild gastritis bx'd, other normal to proximal jejunum Rec Colonoscopy tomorrow Follow [facility] Armando Corona MD GI PROCEDURE ORDERAB LES [facility] * (ABNORMAL) BASIC METABOLIC PANEL (CALCIUM TOTAL) (08/03/2015 4:14 AM CDT) Glucose 83 74 - 106 mg/dL 08/03/2015 5:35 AM CDT [facility] Sodium 141 136 - 145 mmol/L 08/03/2015 5:35 AM CDT [facility] Potassium 4.0 3.5 - 5.1 mmol/L 08/03/2015 5:35 AM CDT [facility] Chloride 107 98 - 107 mmol/L 08/03/2015 5:35 AM CDT [facility] CO2 25 22 - 31 mmol/L 08/03/2015 5:35 AM CDT [facility] Calcium 8.3(L) 8.5 - 10.1 mg/dL 08/03/2015 5:35 AM CDT [facility] Anion Gap 9 5 - 20 mmol/L 08/03/2015 5:35 AM CDT [facility] BUN 6(L) 7 - 21 mg/dL 08/03/2015 5:35 AM CDT [facility] Creatinine 0.70 0.50 - 1.30 mg/dL 08/03/2015 5:35 AM CDT [facility] eGFR by MDRD >60 >60 mL/min/1.7 3m2 08/03/2015 5:35 AM CDT [facility] eGFR by MDRD >60 >60 mL/min/1.7 3m2 08/03/2015 5:35 AM CDT [facility] Blood BLOOD SPECIMEN / Unknown Lab Venipuncture / Unknown 08/03/2015 4:14 AM CDT 08/03/2015 4:52 AM CDT Akira Romero MD LAB - CHEMISTRY MORGAN YEE [facility] [address] [place] [address] * CULTURE STOOL+ E COLI SHIGA-LIKE TOXIN (08/02/2015 4:51 PM CDT) Culture No growth Salmonella, Shigella, Campylobacter , E. coli 0157:h7 or Yersinia CARLOS EDUARDO 08/04/2015 6:27 AM CDT [facility] Culture Negative E. coli Shiga-like toxin (NM) CARLOS EDUARDO 08/04/2015 6:27 AM CDT [facility] Stool STOOL SPECIMEN / Unknown Collection / Unknown 08/02/2015 4:51 PM CDT 08/02/2015 4:56 PM CDT Chucho Hinton MD LAB - MICROBIOLOGY O RDERAPOPEYE [facility] [address] [place] [phone] * (ABNORMAL) LIPID PROFILE (08/02/2015 10:02 AM CDT) Cholesterol 184 <200 mg/dL 08/02/2015 10:49 AM CDT [facility] Triglycerides 156(H) <150 mg/dL 08/02/2015 10:49 AM CDT [facility] HDL Cholesterol 43 >40 mg/dL 08/02/2015 10:49 AM CDT [facility] LDL Calculated 110 <130 mg/dL 08/02/2015 10:49 AM CDT [facility] VLDL Calculated 31(H) <=30 mg/dL 08/02/2015 10:49 AM CDT [facility] Chol HDL Ratio 4.3 <4.5 08/02/2015 10:49 AM CDT [facility] LDL/HDL Ratio 2.6 <5.0 08/02/2015 10:49 AM CDT [facility] Blood BLOOD SPECIMEN / Unknown Lab Venipuncture / Unknown 08/02/2015 10:02 AM CDT 08/02/2015 10:13 AM CDT Chucho Hinton MD LAB - CHEMISTRY MORGAN YEE Performing Organization Address [facility]/ZIP Co de Phone Number [facility] [address] [place], [place] [address] * ALCOHOL ETHYL BLOOD (08/02/2015 10:02 AM CDT) Ethanol <10 <10 mg/dL 08/02/2015 10:49 AM CDT [facility] Ethanol Calculated <0.100 gm/dL 08/02/2015 10:49 AM CDT [facility] Blood BLOOD SPECIMEN / Unknown Lab Venipuncture / Unknown 08/02/2015 10:02 AM CDT 08/02/2015 10:13 AM CDT Narrative [facility] - 08/02/2015 10:49 AM CDT Non Legal Serum Alcohol Chucho Hinton MD LAB - CHEMISTRY MORGAN YEE Performing Organization Address [facility] Co de Phone Number [facility] [address] [place] [address] * HGB HCT PANEL (08/02/2015 10:02 AM CDT) Hemoglobin 12.3 12.0 - 15.6 gm/dL 08/02/2015 10:37 AM CDT [facility] Hematocrit 37.6 35.9 - 45.5 % 08/02/2015 10:37 AM CDT [facility] Blood BLOOD SPECIMEN / Unknown Lab Venipuncture / Unknown 08/02/2015 10:02 AM CDT 08/02/2015 10:13 AM CDT Akira Romero MD LAB - HEMATOLOGY ORD PRIMITIVO Performing Organization Address City/[facility]/ZIP Co de Phone Number [facility] [address] [place] [address] * CT ABDOMEN AND PELVIS WITH IV [...] adelso CARLOS EDUARDO 08/03/2015 9:25 AM CDT [facility] Urine URINE SPECIMEN OBTAINED BY CLEAN CATCH PROCEDURE / Unknown Collection / Unknown 08/01/2015 7:35 PM CDT 08/01/2015 7:39 PM CDT Hari Niño MD LAB - MICROBIOLOGY O RDERABLES Performing Organization Address City/[facility]/ZIP Co de Phone Number [facility] [address] [phone] * (ABNORMAL) URINALYSIS MICROSCOPIC ONLY W/REFLEX CULTURE (08/01/2015 7:35 PM CDT) Bacteria UA 1+(A) None Seen 08/01/2015 8:02 PM CDT [facility] Epithelial Cell UA 2-5 0-2, 2-5 # /hpf 08/01/2015 8:02 PM CDT [facility] Mucus UA Trace 08/01/2015 8:02 PM CDT [facility] Hyaline Casts 0-2 0 - 2 # /lpf 08/01/2015 8:02 PM CDT [facility] Calcium Oxalate Crystals 2+(A) None Seen 08/01/2015 8:02 PM CDT [facility] Urine URINE SPECIMEN OBTAINED BY CLEAN CATCH PROCEDURE / Unknown Collection / Unknown 08/01/2015 7:35 PM CDT 08/01/2015 7:39 PM CDT Hari Niño MD LAB - URINALYSIS ORD ERABLES Performing Organization Address City/[facility]/ZIP Co de Phone Number [facility] [address] [place] [address] * (ABNORMAL) URINALYSIS ROUTINE W/REFLEX TO CULTURE (08/01/2015 7:35 PM CDT) Color UA Yellow Straw, Yellow, Dark Yellow 08/01/2015 7:45 PM CDT [facility] Clarity UA Clear 08/01/2015 7:45 PM CDT [facility] Specific [place] UA 1.019 1.005 - 1.030 08/01/2015 7:45 PM CDT [facility] pH UA 6.5 5.0 - 8.0 pH 08/01/2015 7:45 PM CDT [facility] Protein UA Negative Negative 08/01/2015 7:45 PM CDT [facility] Blood UA Negative Negative 08/01/2015 7:45 PM CDT [facility] Leukocyte UA 1+(A) Negative 08/01/2015 7:45 PM CDT [facility] Nitrite UA Negative Negative 08/01/2015 7:45 PM CDT [facility] Glucose UA Negative Negative 08/01/2015 7:45 PM CDT [facility] Ketone UA Negative Negative 08/01/2015 7:45 PM CDT [facility] Bilirubin UA Negative Negative 08/01/2015 7:45 PM CDT [facility] Urobilinogen UA 0.2 0.1 - 1.0 EU/dL 08/01/2015 7:45 PM CDT [facility] WBC UA Auto 2-5 0-2, 2-5 # /hpf 08/01/2015 7:45 PM CDT [facility] RBC UA Auto 2-5 0-2, 2-5 # /hpf 08/01/2015 7:45 PM CDT [facility] Reflex Status Culture to follow 08/01/2015 7:45 PM CDT [facility] Urine URINE SPECIMEN OBTAINED BY CLEAN CATCH PROCEDURE / Unknown Collection / Unknown 08/01/2015 7:35 PM CDT 08/01/2015 7:39 PM CDT Hari Niño MD LAB - URINALYSIS ORD ERABLES [facility] [address] [place] [address] * TYPE + SCREEN PANEL (08/01/2015 7:19 PM CDT) [facility] ABO A 08/01/2015 8:23 PM CDT [facility] Rh Type Positive 08/01/2015 8:23 PM CDT [facility] Comment:History check perfor med. Retype required. Antibody Screen Negative 08/01/2015 8:23 PM CDT [facility] Miscellaneous samples (specimen) BLOOD SPECIMEN / Unknown Venipuncture / Unknown 08/01/2015 7:19 PM CDT 08/01/2015 7:22 PM CDT Hari Niño MD LAB - BLOOD BANK ORD ERABLES [facility] [address] * (ABNORMAL) LIPASE BLOOD (08/01/2015 6:50 PM CDT) [facility] Lipase 681(H) 10 - 220 U/L 08/01/2015 7:14 PM CDT [facility] Blood BLOOD SPECIMEN / Unknown Venipuncture / Unknown 08/01/2015 6:50 PM CDT 08/01/2015 6:54 PM CDT Hari Niño MD LAB - CHEMISTRY MORGAN YEE [facility] [address] [place] [address] * (ABNORMAL) COMPREHENSIVE METABOLIC PANEL (08/01/2015 6:50 PM CDT) [facility] Glucose 88 74 - 106 mg/dL 08/01/2015 7:14 PM CDT [facility] Sodium 137 136 - 145 mmol/L 08/01/2015 7:14 PM CDT [facility] Potassium 4.1 3.5 - 5.1 mmol/L 08/01/2015 7:14 PM CDT [facility] Chloride 106 98 - 107 mmol/L 08/01/2015 7:14 PM CDT [facility] CO2 21(L) 22 - 31 mmol/L 08/01/2015 7:14 PM CDT [facility] Calcium 9.3 8.5 - 10.1 mg/dL 08/01/2015 7:14 PM CDT [facility] Anion Gap 10 5 - 20 mmol/L 08/01/2015 7:14 PM CDT [facility] BUN 13 7 - 21 mg/dL 08/01/2015 7:14 PM CDT [facility] Creatinine 0.90 0.50 - 1.30 mg/dL 08/01/2015 7:14 PM CDT [facility] Alkaline Phosphatase 77 38 - 126 U/L 08/01/2015 7:14 PM CDT [facility] ALT 34 12 - 78 U/L 08/01/2015 7:14 PM CDT [facility] AST 13 5 - 40 U/L 08/01/2015 7:14 PM CDT [facility] Protein Total 7.9 6.4 - 8.2 gm/dL 08/01/2015 7:14 PM CDT [facility] Albumin 4.3 3.4 - 5.0 gm/dL 08/01/2015 7:14 PM CDT [facility] Bilirubin Total 0.2 0.2 - 1.0 mg/dL 08/01/2015 7:14 PM CDT [facility] eGFR by MDRD >60 >60 mL/min/1.7 3m2 08/01/2015 7:14 PM CDT [facility] eGFR by MDRD >60 >60 mL/min/1.7 3m2 08/01/2015 7:14 PM CDT [facility] Blood BLOOD SPECIMEN / Unknown Venipuncture / Unknown 08/01/2015 6:50 PM CDT 08/01/2015 6:54 PM CDT Hari Niño MD LAB - CHEMISTRY [facility] Organization Address City/State/ZIP Co de Phone Number [facility] [address] [place] [address] * (ABNORMAL) CBC W AUTO DIFFERENTIAL (08/01/2015 6:50 PM CDT) [facility] Signature WBC 9.3 4.4 - 10.7 x10E9/L 08/01/2015 6:57 PM CDT [facility] WBC Corrected x10E9/L 08/01/2015 6:57 PM CDT [facility] RBC 5.35(H) 3.80 - 5.20 x10E12/L 08/01/2015 6:57 PM CDT [facility] Hemoglobin 15.1 12.0 - 15.6 gm/dL 08/01/2015 6:57 PM CDT [facility] Hematocrit 44.9 35.9 - 45.5 % 08/01/2015 6:57 PM CDT [facility] MCV 83.9 80.7 - 98.3 fl 08/01/2015 6:57 PM CDT [facility] MCH 28.2 26.7 - 34.0 pg 08/01/2015 6:57 PM CDT [facility] MCHC 33.6 30.8 - 35.9 gm/dL 08/01/2015 6:57 PM CDT [facility] Platelet Count 339 153 - 416 x10E9/L 08/01/2015 6:57 PM CDT [facility] RDW-CV 15.0(H) 12.1 - 14.9 % 08/01/2015 6:57 PM CDT [facility] MPV 8.3(L) 9.4 - 12.9 fl 08/01/2015 6:57 PM CDT [facility] Neutrophils % 54.0 44.0 - 73.0 % 08/01/2015 6:57 PM CDT [facility] Lymphocytes % 36.4 20.0 - 43.0 % 08/01/2015 6:57 PM CDT [facility] Monocytes % 7.1 5.0 - 13.0 % 08/01/2015 6:57 PM CDT [facility] Eosinophils % 1.0 0.0 - 6.0 % 08/01/2015 6:57 PM CDT [facility] Basophils % 1.0 0.0 - 2.0 % 08/01/2015 6:57 PM CDT [facility] Immature Granulocytes 0.5 0 - 1 % 08/01/2015 6:57 PM CDT [facility] Neutrophil Absolute 5.03 2.01 - 7.14 x10E9/L 08/01/2015 6:57 PM CDT [facility] Lymphocytes Absolute 3.39 1.07 - 3.94 x10E9/L 08/01/2015 6:57 PM CDT [facility] Monocytes Absolute 0.66 0.26 - 1.07 x10E9/L 08/01/2015 6:57 PM CDT [facility] Eosinophils Absolute 0.09 0 - 0.47 x10E9/L 08/01/2015 6:57 PM CDT [facility] Basophils Absolute 0.09(H) 0 - 0.08 x10E9/L 08/01/2015 6:57 PM CDT [facility] Immature Granulocytes Absolute 0.05 0.00 - 0.06 x10E9/L 08/01/2015 6:57 PM CDT [facility] nRBC Auto 0 /100 WBC 08/01/2015 6:57 PM CDT [facility] Blood BLOOD SPECIMEN / Unknown Venipuncture / Unknown 08/01/2015 6:50 PM CDT 08/01/2015 6:54 PM CDT Hari Niño MD LAB - HEMATOLOGY ORD ERABLES [facility] [address] [place] [address] documented in this encounter Visit Diagnoses Diagnosis [...] Given 08/01/2015 7:21 PM CDT 1,000 mL uyapkhlmgg-owfiosbldynei-dyl feine (FIORICET) 50-325-40 MG tablet 1 Tab [...] RN)2054 ($ Given - Provider: Ghazala Deleon APRN-STRAW HAT WASHER OPERATOR) 0521 ($ Given - Provider: Ghazala Deleon [...] (Anesthesia Volume Adjustment - Provider: Hari Guillory APRN-PRESERVATIONIST)1114 ($ New Bag/Syringe - Provider: Janina Espinoza RN)2054 ($ New Bag/Syringe - Provider: Ghazala Deleon APRN-STRAW HAT WASHER OPERATOR) 0651 ($ New Bag/Syringe - Provider: Ghazala Deleon APRN-STRAW HAT WASHER OPERATOR) 0.9% NaCl infusion (CANCELED) at 20 mL/hr, Intravenous, CONTINUOUS, Starting on Sat08/03/15 at 0730, Until Sat08/03/15 at 0846, Pre-procedure (GI) 0700 ($ New Bag/Syringe - Provider: Peg Lorenzana RN)0754 (Anesthesia Volume Adjustment - Provider: Brionna Fournier APRN-PRESERVATIONIST) PRN Medication Order 08/03/2015 08/04/2015 08/05/2015 ALPRAZolam [...] RN)0651 ($ Given - Provider: Ghazala Deleon APRN-STRAW HAT WASHER OPERATOR)1020 ($ Given - Provider: Sindi Packer RN - Comment: loss if iv unable to give ivp pain med.) documented in this encounter Care Teams Sql Tech Relationship Specialty Start Date End Date Jonathan Hartman, RN Digital Design Engineer 07/14/15 documented as of this encounter
--- OUTSIDE RECORDS SUMMARY | 2024-04-29 20:12 | XMS_ITS | Encounter Summary ---
Author Organization [facility] Address [address] [place] [address] Care Team Providers Care Rice Dryer Mechanic Name Role Phone Jonathan Hartman RN Unavailable Reason for Visit * Reason Comments Follow-up abd pain; alt bowel habits, epigastric pain and lower abd pain Encounter Details Date Type Department Care Team (Late st Contact Info) Description 08/23/2015 9:40 AM CDT Office Visit [facility] - [address] [address] Armando Corona MD [address] [place] [id number] Constipation, unspecified constipation type (Primary Dx); [...] Reported on 08/23/2015) 30 Tab 0 ??? zaoismhzya-hertyejdmkxjl-ncwimobq (FIORICET) 50-325-40 MG tablet Take 1 Tab [...] results for input(s): AMYLASE in the last [id number] hours. Recent Labs Component Name 08/01/15 1850 [...] you have further questions. Armando Corona MD [facility] office: [phone] Exchange: [phone] documented in this encounter Plan of Treatment Not on file documented as of this encounter Visit Diagnoses Diagnosis Constipation, unspecified constipation type- Primary 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 diarrhea 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 syndrome documented in this encounter Care Teams Rice Dryer Mechanic Relationship Specialty Start Date End Date Jonathan Hartman RN Industrial Order Clerk 07/14/15 documented as of this encounter
--- OUTSIDE RECORDS SUMMARY | 2024-04-29 20:12 | XMS_ITS | Encounter Summary ---
Author Organization [facility] Address [address] [place] [address] Care Team Providers Care Terrapin Fisher Name Role Phone Jonathan Hartman RN Unavailable Reason for Visit * Reason Comments Pain Abdominal c/o periumbilical pa in x 3 days. Black diarrhea, increased pain today. Nausea. No vomiting. * Auth/Cert Specialty Diagnoses / Procedures Referred By Kaylynn phillips Referred To Contact Diagnoses Acute pancreatitis, unspecified pancreatitis type Referral ID Status Reason Start Date Expiration Date Visits Re quested Visits Authorized [id number] 1 1 Encounter Details Date Type Department Care Team (Late st Contact Info) Description 08/04/2015 2:00 PM CDT - 08/04/2015 2:30 PM CDT Surgery [facility] [address] [place] [address] Procedure, Nursing G_I GASTROINTESTINAL TRACT IMAGING INTRALUMINAL ESOPHAGUS THROUGH ILEUM Surgery Details Date/Time Status Location OR Service Patient Class Case Class Case Type Trauma Case? 08/04/2015 2:00 PM Posted [facility] ENDO GI Lab Gastroenterology Inpatient Non-Urg [...] daily as needed for Anxiety Chucho Hinton immwjmpduf-jmcvgdtxdstrp-ueffuryp 50-325-40 MG tablet Commonly known as: FIORICET [...] Answer Comments Your discharge diagnosis is Diverticulitis [209940] Follow up with Primary Care Provider (PCP) [...] understood by pt and scripts filled by [facility]. Pt discharged home. * Chucho Hinton [...] tablet 0.25 mg, Oral, TID PRN ?? klsicmiggh-yictazugztdla-jpqbeqyg (FIORICET) 50-325-40 MG tablet 1 Tab, Oral, [...] tablet 650 mg, Oral, q4h PRN ?? qczagrvita-vuvpxcyillqik-sdoquswm (FIORICET) 50-325-40 MG tablet 1 Tab, Oral, [...] tablet 650 mg, Oral, q4h PRN ?? jifarpbkvn-xoildndfhfulc-gsflialk (FIORICET) 50-325-40 MG tablet 1 Tab, Oral, [...] liquid diet. Continues c/o abdominal pain, refuses Townsend, states Townsend doesn't really help her. Pt wants to wait until Dilaudid is due again. * Chari Fontenot RN - 08/03/2015 5:34 AM CDT Shift summary: abdominal pain overnight treated with Townsend and Dilaudid. Per pt pain never completely gone but reaches tolerable level. Npo for procedure this am, consent in chart. * Mary Castanon RN - 08/02/2015 7:29 PM CDT Shift highlights: VSS. C/o abdominal pain throughout the day. Dilaudid and Townsend given as ordered. C/o migraine once today. [...] Contact Information Primary Emergency Contact: Toi Smith [facility] Relation: Significant other Anticipated Discharge Date: [...] needs please contact: Madalyn Medina RN CM [phone]. Media Liaison Officer Name/Phone number: Madalyn Medina RN * Jaky [...] Oral q4h PRN Hari Niño MD ??? nszgficnza-ijgtxepkvngvz-bqjairab (FIORICET) 50-325-40 MG tablet 1 Tab 1 [...] Oral q4h PRN Hari Niño MD ??? dfguweugyj-rhmsihnyfreys-jmrgrijt (FIORICET) 50-325-40 MG tablet 1 Tab 1 [...] Hinton MD - 08/02/2015 9:16 AM CDT [facility] Madalyn Walton 1975 Data [...] results for input(s): MAGMGDL in the last 18997 hours. No results for input(s): PHOS in the last 82986 hours. No results for input(s): AMYLASE in the last 65770 hours. No results for input(s): PHART, TWK8SLE, PO2ART, R0MRJZTZ, BEART, FIO2 in the last 51787 hours. Invalid input(s): OGS6LIK No results for input(s): BNP in the last 96870 hours. Recent Labs Component Name 07/14/15 1343 CDIFFTOXINAB Negative No results for input(s): HGBA1C in the last 82044 hours. No results for input(s): INR in the last 23842 hours. Recent Labs Component Name 08/02/15 1002 CHOL 184 TRIG 156* HDL 43 LDLCALC 110 No results for input(s): PT in the last 99163 hours. No results for input(s): PTT in the last 55695 hours. No results for input(s): T3FREE in the last 67187 hours. No results for input(s): T4FREE in the last 27457 hours. No results for input(s): TSH in the last 35664 hours. Recent Labs Component Name 08/01/15 1935 [...] CDTAssociated Order(s): IP CONSULT TO PASTORAL CARE [employer] support to the patient was requested/provided. * [...] Oral q4h PRN Hari Niño MD ??? wqsfurcwcz-ygubiprstibyw-xxtjaguv (FIORICET) 50-325-40 MG tablet 1 Tab 1 [...] (TYLENOL) tablet 650 mg, Oral, q4h PRN rcjxlgqxty-sgfjaqrrdzhid-iqydiymf (FIORICET) 50-325-40 MG tablet 1 Tab, Oral, [...] results for input(s): INR in the last 34685 hours. No results for input(s): AMYLASE in the last 68085 hours. Recent Labs Component Name 08/01/15 1850 [...] you have further questions. Armando Corona MD [facility], Gastroenterology South Division [facility] office: [phone] Exchange: [phone] documented in this encounter Nursing Notes * [...] review, submitted by ANTHONY Livingston at [employer] [id number] Situation: Patient is a 40 y.o. [...] with the patient: 08/01/2015 18:48 Madalyn Walton [id number] [facility] EMERGENCY DEPARTMENT History Chief Complaint [...] 54.0 44.0-73.0 % Lymph 36.4 20.0-43.0 % Hernando 7.1 5.0-13.0 % Eos 1.0 0.0-6.0 % Baso 1.0 0.0-2.0 % Immature Grans 0.5 0-1 % Neutro Abs 5.03 2.01-7.14 x10E9/L Lymph Abs 3.39 1.07-3.94 x10E9/L Hernando Abs 0.66 0.26-1.07 x10E9/L Eosin Abs 0.09 [...] Yellow, Dark Yellow Clarity UA Clear Specific [place] UA 1.019 1.005-1.030 pH UA 6.5 5.0-8.0 [...] structures are otherwise normal. ?? PRELIMINARY REPORT [facility] Patient Name: ISABEL FROST Age: 28 Patient MR NO: [id number] Referring Doctor: Dr. Dickerson Patient Location: Emergency [...] No large ovarian cysts To Talk to Radiologist([phone] [phone] Leeroy Ching M.D. Electronically Signed Progress Notes 6:49 PM Plan: Labs, CT abdomen/pelvis. 9:35 PM Call out to IPC. 9:36 PM I reevaluated the patient???s medical condition, comfort, and provided a care update. Informed patient and family of admission. 10:33 PM I discussed with Dr. Romero ([facility]) all pertinent aspects of the case including [...] W AUTO DIFFERENTIAL (08/05/2015 7:09 AM CDT) [facility] WBC 4.4 4.4 - 10.7 x10E9/L 08/05/2015 7:28 AM CDT [facility] WBC Corrected x10E9/L 08/05/2015 7:28 AM CDT [facility] RBC 4.41 3.80 - 5.20 x10E12/L 08/05/2015 7:28 AM CDT [facility] Hemoglobin 12.5 12.0 - 15.6 gm/dL 08/05/2015 7:28 AM CDT [facility] Hematocrit 38.4 35.9 - 45.5 % 08/05/2015 7:28 AM CDT [facility] MCV 87.1 80.7 - 98.3 fl 08/05/2015 7:28 AM CDT [facility] MCH 28.3 26.7 - 34.0 pg 08/05/2015 7:28 AM CDT [facility] MCHC 32.6 30.8 - 35.9 gm/dL 08/05/2015 7:28 AM CDT [facility] Platelet Count 232 153 - 416 x10E9/L 08/05/2015 7:28 AM CDT [facility] RDW-CV 14.5 12.1 - 14.9 % 08/05/2015 7:28 AM CDT [facility] MPV 8.6(L) 9.4 - 12.9 fl 08/05/2015 7:28 AM CDT [facility] Neutrophils % 39.6(L) 44.0 - 73.0 % 08/05/2015 7:28 AM CDT [facility] Lymphocytes % 52.4(H) 20.0 - 43.0 % 08/05/2015 7:28 AM CDT [facility] Monocytes % 5.5 5.0 - 13.0 % 08/05/2015 7:28 AM CDT [facility] Eosinophils % 1.1 0.0 - 6.0 % 08/05/2015 7:28 AM CDT [facility] Basophils % 0.9 0.0 - 2.0 % 08/05/2015 7:28 AM CDT [facility] Immature Granulocytes 0.5 0 - 1 % 08/05/2015 7:28 AM CDT [facility] Neutrophil Absolute 1.73(L) 2.01 - 7.14 x10E9/L 08/05/2015 7:28 AM CDT [facility] Lymphocytes Absolute 2.29 1.07 - 3.94 x10E9/L 08/05/2015 7:28 AM CDT [facility] Monocytes Absolute 0.24(L) 0.26 - 1.07 x10E9/L 08/05/2015 7:28 AM CDT [facility] Eosinophils Absolute 0.05 0 - 0.47 x10E9/L 08/05/2015 7:28 AM CDT [facility] Basophils Absolute 0.04 0 - 0.08 x10E9/L 08/05/2015 7:28 AM CDT [facility] Immature Granulocytes Absolute 0.02 0.00 - 0.06 x10E9/L 08/05/2015 7:28 AM CDT [facility] nRBC Auto 0 /100 WBC 08/05/2015 7:28 AM CDT [facility] Blood BLOOD SPECIMEN / Unknown Lab Venipuncture / Unknown 08/05/2015 7:09 AM CDT 08/05/2015 7:21 AM CDT Armando Corona MD LAB - HEMATOLOGY ORD ERABLES [facility] [address] [place] [address] * HEMOGLOBIN (08/04/2015 11:16 AM CDT) Hemoglobin 12.6 12.0 - 15.6 gm/dL 08/04/2015 11:28 AM CDT [facility] Blood BLOOD SPECIMEN / Unknown Lab Venipuncture / Unknown 08/04/2015 11:16 AM CDT 08/04/2015 11:22 AM CDT Armando Corona MD LAB - HEMATOLOGY ORD ERABLES [facility] [address] [place] [address] * GROSS + MICRO EXAM (STL) (08/04/2015 9:31 AM CDT) Pathologist [facility] Case Report Surgical Pathology Report ? Case: [id number] ? Authorizing Provider: ??Armando Corona MD ? Collected: ? 08/04/2015 09:31 AM ? Ordering Location: ? [facility] ?Received: ?08/04/2015 12:25 PM ? Pathologist: ? Kamilla Bustamante MD ? Specimen: ?Polyp Descending, Descending colon polyp ? 08/05/2015 11:25 AM CDT [facility] Final Diagnosis 1. ??Descending colon, polyp, biopsy: -- ??Hyperplastic polyp SR/alsuyapa 08/05/2015 11:25 AM CDT [facility] Gross Description Received in formalin in a container labeled Anton Madalyn, descending colon polyp. ??The container holds a 0.5 x 0.4 x 0.3 cm baird tissue fragment. ??The specimen is entirely submitted in a cassette labeled A1. ?? DYT/rtc 08/05/2015 11:25 AM CDT [facility] Microscopic Description Microscopic examination reveals colonic mucosal fragment with hyperplastic polyp changes. Malignancy is not seen. /zoey 08/05/2015 11:25 AM CDT [facility] Pathology/Cytolo gy POLYP / Unknown 08/04/2015 9:31 AM CDT 08/04/2015 12:25 PM CDT Armando Corona MD LAB - PATHOLOGY/CYTO LOGY ORDERABLES [facility] [address] [id number] * ENDOSCOPY, COLON, DIAGNOSTIC (08/04/2015 9:04 AM CDT) Report Endoscopy POC _ Patient Name: Madalyn Walton ? Procedure Date: 08/04/2015 9:04 AM ? Date of : 1975 ?Admit Type: Inpatient Age: 40 ? Gender: Female Attending MD: Armanod Corona, ? _ Procedure: ? Colonoscopy Indications: [...] Procedure Code(s): ? --- Professional --- ? 40294, Colonoscopy, flexible; with removal of tumor(s), polyp(s), or ? other lesion(s) by snare technique ? --- Technical --- ? 45340, Colonoscopy, flexible; with removal of tumor(s), polyp(s), [...] abscess ? without bleeding CPT copyright 2015 [employer]. All rights reserved. The codes documented in this report are preliminary and upon home appliance installer review may be revised to meet current compliance requirements. Armando Mckeonong, 08/04/2015 9:38:09 AM This report has been signed electronically. Number of Addenda: 0 Note Initiated On: 08/04/2015 9:04 AM [facility] ENDOS[facility] 08/04/2015 9:04 AM CDT Narrative Transcriptions Armando Corona MD - 08/04/2015 9:39 AM CDT Colonoscopy * fair prep *few diverticuli * no old or fresh blood * normal terminal ileum rec PRN hyoscyamine Capsule endoscopy today Armando Corona MD GI PROCEDURE ORDERAB LES [facility] ENDOSCOPY * GROSS + MICRO EXAM (STL) (08/03/2015 7:54 AM CDT) Case Report Surgical Pathology Report ? Case: [id number] ? Authorizing Provider: ??Armando Corona MD ? Collected: ? 08/03/2015 07:54 AM ? Ordering Location: ? [facility] ?Received: ?08/03/2015 12:09 PM ? Pathologist: ? Kamilla Bustamante MD ? Specimen: ?Gastric Biopsy ? 08/04/2015 10:17 AM CDT [facility] Final Diagnosis 1. ??Gastric biopsy: -- ??Chronic gastritis -- ??H. pylori stain negative for bacterial organisms /[facility] 08/04/2015 10:17 AM CDT [facility] Gross Description The specimen is received fixed in formalin in 1 container labeled with the patient's name, and gastric biopsy and contains three soft baird-yellow tissue fragments each measuring 0.3 cm in greatest dimension. The specimen is strained through a mesh bag and submitted in toto in cassette A1. /mark 08/04/2015 10:17 AM CDT [facility] Microscopic Description Microscopic examination reveals gastric antrum and body mucosal fragments with patchy chronic gastritis. Metaplasia, dysplasia, malignancy and granulomas are not seen. H. pylori stain is negative for bacterial organisms. All of the stain(s), control slide(s) and test tissue slide(s) were judged as technically acceptable. /[facility] 08/04/2015 10:17 AM CDT [facility] Pathology/Cytolo gy GASTRIC BIOPSY SPECIMEN / Unknown 08/03/2015 7:54 AM CDT 08/03/2015 12:09 PM CDT Armando Corona MD LAB - PATHOLOGY/CYTO LOGY ORDERABLES [facility] [address] [place] [address] * EGD (08/03/2015 7:24 AM [...] (Doctor), Roxi Bennett RN, Sona Dove, ? Tow Motor Mechanic Patient Profile: ?? 40F pmh depression, arthritis, [...] Procedure Code(s): ? --- Professional --- ? 09920, Esophagogastroduod enoscopy, flexible, transoral; with biopsy, ? single or multiple ? --- Technical --- ? 07925, Esophagogastroduod enoscopy, flexible, transoral; with biopsy, ? single or multiple Diagnosis Code(s): ? --- Professional --- ? K29.70, Gastritis, unspecified, without bleeding ? R10.13, Epigastric pain ? R10.33, Periumbilical pain ? K92.1, Melena (includes Hematochezia) ? --- Technical --- ? K29.70, Gastritis, unspecified, without bleeding ? R10.13, Epigastric pain ? R10.33, Periumbilical pain ? K92.1, Melena (includes Hematochezia) CPT copyright 2015 [employer]. All rights reserved. The codes documented in this report are preliminary and upon home appliance installer review may be revised to meet current compliance requirements. Armando Corona, 08/03/2015 8:00:13 AM This report has been signed electronically. Number of Addenda: 0 Note Initiated On: 08/03/2015 7:24 AM [facility] 08/03/2015 7:24 AM CDT Narrative Transcriptions Armando Corona MD - 08/03/2015 8:00 AM CDT EGD - mild gastritis bx'd, other normal to proximal jejunum Rec Colonoscopy tomorrow Follow [facility] Armando Corona MD GI PROCEDURE ORDERAB LES [facility] END[facility] * (ABNORMAL) BASIC METABOLIC PANEL (CALCIUM TOTAL) (08/03/2015 4:14 AM CDT) Glucose 83 74 - 106 mg/dL 08/03/2015 5:35 AM CDT [facility] Sodium 141 136 - 145 mmol/L 08/03/2015 5:35 AM CDT [facility] Potassium 4.0 3.5 - 5.1 mmol/L 08/03/2015 5:35 AM CDT [facility] Chloride 107 98 - 107 mmol/L 08/03/2015 5:35 AM CDT [facility] CO2 25 22 - 31 mmol/L 08/03/2015 5:35 AM CDT [facility] Calcium 8.3(L) 8.5 - 10.1 mg/dL 08/03/2015 5:35 AM CDT [facility] Anion Gap 9 5 - 20 mmol/L 08/03/2015 5:35 AM CDT [facility] BUN 6(L) 7 - 21 mg/dL 08/03/2015 5:35 AM CDT [facility] Creatinine 0.70 0.50 - 1.30 mg/dL 08/03/2015 5:35 AM CDT [facility] eGFR by MDRD >60 >60 mL/min/1.7 3m2 08/03/2015 5:35 AM CDT [facility] eGFR by MDRD >60 >60 mL/min/1.7 3m2 08/03/2015 5:35 AM CDT [facility] Blood BLOOD SPECIMEN / Unknown Lab Venipuncture / Unknown 08/03/2015 4:14 AM CDT 08/03/2015 4:52 AM CDT Akira Romero MD LAB - CHEMISTRY MORGAN YEE [facility] [address] [place] [address] * CULTURE STOOL+ E COLI SHIGA-LIKE TOXIN (08/02/2015 4:51 PM CDT) Culture No growth Salmonella, Shigella, Campylobacter , E. coli 0157:h7 or Yersinia CARLOS EDUARDO 08/04/2015 6:27 AM CDT [facility] Culture Negative E. coli Shiga-like toxin (NM) CARLOS EDUARDO 08/04/2015 6:27 AM CDT [facility] Stool STOOL SPECIMEN / Unknown Collection / Unknown 08/02/2015 4:51 PM CDT 08/02/2015 4:56 PM CDT Chucho Hinton MD LAB - MICROBIOLOGY O RDERABLES [facility] [address] [place] [phone] * (ABNORMAL) LIPID PROFILE (08/02/2015 10:02 AM CDT) Cholesterol 184 <200 mg/dL 08/02/2015 10:49 AM CDT [facility] Triglycerides 156(H) <150 mg/dL 08/02/2015 10:49 AM CDT [facility] HDL Cholesterol 43 >40 mg/dL 08/02/2015 10:49 AM CDT [facility] LDL Calculated 110 <130 mg/dL 08/02/2015 10:49 AM CDT [facility] VLDL Calculated 31(H) <=30 mg/dL 08/02/2015 10:49 AM CDT [facility] Chol HDL Ratio 4.3 <4.5 08/02/2015 10:49 AM CDT [facility] LDL/HDL Ratio 2.6 <5.0 08/02/2015 10:49 AM CDT [facility] Blood BLOOD SPECIMEN / Unknown Lab Venipuncture / Unknown 08/02/2015 10:02 AM CDT 08/02/2015 10:13 AM CDT Chucho Hinton MD LAB - CHEMISTRY MORGAN YEE [facility] [address] [place] [address] * ALCOHOL ETHYL BLOOD (08/02/2015 10:02 AM CDT) Ethanol <10 <10 mg/dL 08/02/2015 10:49 AM CDT [facility] Ethanol Calculated <0.100 gm/dL 08/02/2015 10:49 AM CDT [facility] Blood BLOOD SPECIMEN / Unknown Lab Venipuncture / Unknown 08/02/2015 10:02 AM CDT 08/02/2015 10:13 AM CDT Narrative [facility] - 08/02/2015 10:49 AM CDT Non Legal Serum Alcohol Chucho Hinton MD LAB - CHEMISTRY MORGAN YEE Performing Organization Address City/[facility] Co de Phone Number [facility] [address] [place] [phone] * HGB HCT PANEL (08/02/2015 10:02 AM CDT) Hemoglobin 12.3 12.0 - 15.6 gm/dL 08/02/2015 10:37 AM CDT [facility] Hematocrit 37.6 35.9 - 45.5 % 08/02/2015 10:37 AM CDT [facility] Blood BLOOD SPECIMEN / Unknown Lab Venipuncture / Unknown 08/02/2015 10:02 AM CDT 08/02/2015 10:13 AM CDT Akira Romero MD LAB - HEMATOLOGY ORD PRIMITIVO Performing Organization Address City/[facility] Co de Phone Number [facility] [address] [place] [phone] * CT ABDOMEN AND PELVIS WITH IV [...] adelso CARLOS EDUARDO 08/03/2015 9:25 AM CDT [facility] Urine URINE SPECIMEN OBTAINED BY CLEAN CATCH PROCEDURE / Unknown Collection / Unknown 08/01/2015 7:35 PM CDT 08/01/2015 7:39 PM CDT Hari Niño MD LAB - MICROBIOLOGY O RDERABLES Performing Organization Address City/[facility]/ZIP Co de Phone Number [facility] [address] [phone] * (ABNORMAL) URINALYSIS MICROSCOPIC ONLY W/REFLEX CULTURE (08/01/2015 7:35 PM CDT) Pathologist [facility] Bacteria UA 1+(A) None Seen 08/01/2015 8:02 PM CDT [facility] Epithelial Cell UA 2-5 0-2, 2-5 # /hpf 08/01/2015 8:02 PM CDT [facility] Mucus UA Trace 08/01/2015 8:02 PM CDT [facility] Hyaline Casts 0-2 0 - 2 # /lpf 08/01/2015 8:02 PM CDT [facility] Calcium Oxalate Crystals 2+(A) None Seen 08/01/2015 8:02 PM CDT [facility] Urine URINE SPECIMEN OBTAINED BY CLEAN CATCH PROCEDURE / Unknown Collection / Unknown 08/01/2015 7:35 PM CDT 08/01/2015 7:39 PM CDT Hari Niño MD LAB - URINALYSIS ORD ERABLES Performing Organization Address City/[facility]/ZIP Co de Phone Number [facility] [address] [place] [address] * (ABNORMAL) URINALYSIS ROUTINE W/REFLEX TO CULTURE (08/01/2015 7:35 PM CDT) Color UA Yellow Straw, Yellow, Dark Yellow 08/01/2015 7:45 PM CDT [facility] Clarity UA Clear 08/01/2015 7:45 PM CDT [facility] Specific [place] UA 1.019 1.005 - 1.030 08/01/2015 7:45 PM CDT [facility] pH UA 6.5 5.0 - 8.0 pH 08/01/2015 7:45 PM CDT [facility] Protein UA Negative Negative 08/01/2015 7:45 PM CDT [facility] Blood UA Negative Negative 08/01/2015 7:45 PM CDT [facility] Leukocyte UA 1+(A) Negative 08/01/2015 7:45 PM CDT [facility] Nitrite UA Negative Negative 08/01/2015 7:45 PM CDT [facility] Glucose UA Negative Negative 08/01/2015 7:45 PM CDT [facility] Ketone UA Negative Negative 08/01/2015 7:45 PM CDT [facility] Bilirubin UA Negative Negative 08/01/2015 7:45 PM CDT [facility] Urobilinogen UA 0.2 0.1 - 1.0 EU/dL 08/01/2015 7:45 PM CDT [facility] WBC UA Auto 2-5 0-2, 2-5 # /hpf 08/01/2015 7:45 PM CDT [facility] RBC UA Auto 2-5 0-2, 2-5 # /hpf 08/01/2015 7:45 PM CDT [facility] Reflex Status Culture to follow 08/01/2015 7:45 PM CDT [facility] Urine URINE SPECIMEN OBTAINED BY CLEAN CATCH PROCEDURE / Unknown Collection / Unknown 08/01/2015 7:35 PM CDT 08/01/2015 7:39 PM CDT Hari Niño MD LAB - URINALYSIS ORD ERABLES [facility] [address], [place] [id number] * TYPE + SCREEN PANEL (08/01/2015 7:19 PM CDT) ABO A 08/01/2015 8:23 PM CDT [facility] Rh Type Positive 08/01/2015 8:23 PM CDT [facility] Comment:History check perfor med. Retype required. Antibody Screen Negative 08/01/2015 8:23 PM CDT [facility] Miscellaneous samples (specimen) BLOOD SPECIMEN / Unknown Venipuncture / Unknown 08/01/2015 7:19 PM CDT 08/01/2015 7:22 PM CDT Hari Niño MD LAB - BLOOD BANK ORD PRIMITIVO Performing Organization Address City/[facility]/ZIP Co de Phone Number [facility] [address] [place] [address] * (ABNORMAL) LIPASE BLOOD (08/01/2015 6:50 PM CDT) Lipase 681(H) 10 - 220 U/L 08/01/2015 7:14 PM CDT [facility] Blood BLOOD SPECIMEN / Unknown Venipuncture / Unknown 08/01/2015 6:50 PM CDT 08/01/2015 6:54 PM CDT Hari Niño MD LAB - CHEMISTRY MORGAN YEE Performing Organization Address [facility] Co de Phone Number [facility] [address] [place] [address] * (ABNORMAL) COMPREHENSIVE METABOLIC PANEL (08/01/2015 6:50 PM CDT) Glucose 88 74 - 106 mg/dL 08/01/2015 7:14 PM CDT [facility] Sodium 137 136 - 145 mmol/L 08/01/2015 7:14 PM CDT [facility] Potassium 4.1 3.5 - 5.1 mmol/L 08/01/2015 7:14 PM CDT [facility] Chloride 106 98 - 107 mmol/L 08/01/2015 7:14 PM CDT [facility] CO2 21(L) 22 - 31 mmol/L 08/01/2015 7:14 PM CDT [facility] Calcium 9.3 8.5 - 10.1 mg/dL 08/01/2015 7:14 PM CDT [facility] Anion Gap 10 5 - 20 mmol/L 08/01/2015 7:14 PM CDT [facility] BUN 13 7 - 21 mg/dL 08/01/2015 7:14 PM CDT [facility] Creatinine 0.90 0.50 - 1.30 mg/dL 08/01/2015 7:14 PM CDT [facility] Alkaline Phosphatase 77 38 - [...] >60 mL/min/1.7 3m2 08/01/2015 7:14 PM CDT [facility] Blood BLOOD SPECIMEN / Unknown Venipuncture / Unknown 08/01/2015 6:50 PM CDT 08/01/2015 6:54 PM CDT Hari Niño MD [facility] Organization Address City/State/ZIP Co de Phone Number [facility] [address] [place] [address] * (ABNORMAL) CBC W AUTO [...] - 34.0 pg 08/01/2015 6:57 PM CDT [facility] MCHC 33.6 30.8 - 35.9 gm/dL 08/01/2015 6:57 PM T [facility] Platelet Count 339 153 - 416 x10E9/L 08/01/2015 6:57 PM [facility] RDW-CV 15.0(H) 12.1 - 14.9 % 08/01/2015 6:57 PM T [facility] MPV 8.3(L) 9.4 - 12.9 fl 08/01/2015 6:57 PM [facility] Neutrophils % 54.0 44.0 - 73.0 % 08/01/2015 6:57 PM [facility] Lymphocytes % 36.4 20.0 - 43.0 % 08/01/2015 6:57 PM [facility] Monocytes % 7.1 5.0 - 13.0 % 08/01/2015 6:57 PM [facility] Eosinophils % 1.0 0.0 - 6.0 % 08/01/2015 6:57 PM T [facility] Basophils % 1.0 0.0 - 2.0 % 08/01/2015 6:57 PM [facility] Immature Granulocytes 0.5 0 - 1 % 08/01/2015 6:57 PM [facility] Neutrophil Absolute 5.03 2.01 - 7.14 x10E9/L 08/01/2015 6:57 PM [facility] Lymphocytes Absolute 3.39 1.07 - 3.94 x10E9/L 08/01/2015 6:57 PM CDT [facility] Monocytes Absolute 0.66 0.26 - 1.07 x10E9/L 08/01/2015 6:57 PM [facility] Eosinophils Absolute 0.09 0 - 0.47 x10E9/L 08/01/2015 6:57 PM T [facility] Basophils Absolute 0.09(H) 0 - 0.08 x10E9/L 08/01/2015 6:57 PM [facility] Immature Granulocytes Absolute 0.05 0.00 - 0.06 x10E9/L 08/01/2015 6:57 PM T [facility] nRBC Auto 0 /100 WBC 08/01/2015 6:57 PM CDT [facility] Blood BLOOD SPECIMEN / Unknown Venipuncture / Unknown 08/01/2015 6:50 PM CDT 08/01/2015 6:54 PM CDT Hari Niño MD LAB - HEMATOLOGY ORD ERABLES [facility] [address] [place] [address] documented in this encounter Visit Diagnoses Not [...] Given 08/01/2015 7:21 PM CDT 1,000 mL cnehjbpnqq-qhsubhdecrywp-enn feine (FIORICET) 50-325-40 MG tablet 1 Tab [...] (Anesthesia Volume Adjustment - Provider: Hari Guillory SKI MAKER-AUTO PARTS CLERK)1114 ($ New Bag/Syringe - Provider: Janina Espinoza RN)2054 ($ New Bag/Syringe - Provider: Ghazala Deleon SKI MAKER-PERINATAL COORDINATOR) 0651 ($ New Bag/Syringe - Provider: Ghazala Deleon SKI MAKER-[facility]) 0.9% NaCl infusion (CANCELED) at 20 mL/hr, Intravenous, CONTINUOUS, Starting on Sat08/03/15 at 0730, Until Sat08/03/15 at 0846, Pre-procedure (GI) 0700 ($ New Bag/Syringe - Provider: Peg Lorenzana RN)0754 (Anesthesia Volume Adjustment - Provider: Brionna Fournier SKI MAKER-AUTO PARTS CLERK) PRN Medication Order 08/03/2015 08/04/2015 08/05/2015 ALPRAZolam [...] 0417 ($ Given - Provider: Maria C Crcoker RN)1106 ($ Given - Provider: Janina Espinoza [...] RN)2054 ($ Given - Provider: Ghazala Deleon SKI MAKER-PERINATAL COORDINATOR) 0303 ($ Given - Provider: Sofia Marks RN)0651 ($ Given - Provider: Ghazala Deleon, SKI MAKER-PERINATAL COORDINATOR)1020 ($ Given - Provider: Sindi Packer RN - Comment: loss if iv unable to give ivp pain med.) documented in this encounter Care Teams Terrapin Fisher Relationship Specialty Start Date End Date Jonathan Hartman RN Media Liaison Officer 07/14/15 documented as of this encounter
--- OUTSIDE RECORDS SUMMARY | 2024-04-29 20:12 | XMS_ITS | Encounter Summary ---
Author Organization [facility] Address [address] [place] [address] Care Team Providers Care Cutting Machine Tender Decorative Name Role Phone Jonathan Hartman Rhett RN Unavailable [phone] Encounter Details Date Type Department Care Team (Late st Contact Info) Description 09/15/2015 Orders Only [facility] - GI [address] [place] [address] [id number] Armando Corona MD [address] [place] [phone] Constipation, unspecified constipation type Social History [...] Primary documented in this encounter Care Teams Cutting Machine Tender Decorative Relationship Specialty Start Date End Date Jonathan Hartman RN Beck Operator 07/14/15 documented as of this encounter
--- OUTSIDE RECORDS SUMMARY | 2024-04-29 20:12 | XMS_ITS | Encounter Summary ---
Author Organization [facility] Address [address] [place] [address] Care Team Providers Care Reservation Sales Agent Name Role Phone Minnie Jonathan Delaney RN Unavailable [phone] Feliciano Dash MD Primary Care Provider [phone] Reason for Visit * Auth/Cert Specialty Diagnoses / Procedures Referred By Kaylynn phillips Referred To Contact Diagnoses Abdominal pain, unspecified abdominal location Abdominal pain, unspecified abdominal location Procedures COLONOSCOPY SCREEN Referral ID Status Reason Start Date Expiration Date Visits Re quested Visits Authorized [id number] 1 1 Encounter Details Date Type Department Care Team (Late st Contact Info) Description 12/15/2015 12:30 PM CDT - 12/15/2015 1:00 PM CDT Surgery [facility] - Endoscopy Services [address] [place] [id number] Armando Corona MD [address] [place] [address] [place] [phone] COLONOSCOPY SCREEN Surgery Details Date/Time Status Location OR Service Patient Class Case Class Case Type Trauma Case? 12/15/2015 12:30 PM Posted [facility] Endo 04 Gastroenterology Surgery [...] Anesthesia Team) 12/15/2015 12:17 PM Patient: Madalyn Wlaton, date of 1975 Procedure(s) planned: colonoscopy Indication(s): [...] transfusion, repeat endoscopic procedures or possible gregorio godron to stop the bleeding. IV Risks A [...] Case Report Surgical Pathology Report ? Case: [id number] ? Authorizing Provider: ??Armando Corona MD ?Collected: ? 12/15/2015 12:34 PM ? Ordering Location: ? [facility] ?Received: ?12/16/2015 09:42 AM ? Pathologist: ? Doris Morrison MD ? Specimen: ?Colon Biopsy, random colon biopsy ? 12/17/2015 10:19 AM CDT [facility] Final Diagnosis 1. ??Large intestine, random colon, endoscopic biopsy: -- ??No histopathologic abnormality KL/klg 12/17/2015 10:19 AM CDT [facility] Gross Description Received in formalin in a container labeled Madalyn Walton, random colon biopsy. ??The container holds multiple pink-baird tissue fragments measuring from 0.2 cm up to 0.4 cm. The specimen is entirely submitted in a cassette labeled A1. DYT/eloy 12/17/2015 10:19 AM CDT [facility] Microscopic Description Histologic sections show fragments of large intestinal mucosa without specific histopathologic abnormality. ??There is no evidence of lymphocytic or collagenous colitis. ??There is no evidence of dysplasia or malignancy. ?? OBEY/tao 12/17/2015 10:19 AM CDT [facility] Pathology/Cytolo gy COLONIC BIOPSY SPECIMEN / Unknown 12/15/2015 12:34 PM CDT 12/16/2015 9:42 AM CDT Armando Corona MD LAB - PATHOLOGY/CYTO LOGY ORDERABLES [facility] [address] [place] [address] * ENDOSCOPY, COLON, SCREENING (12/15/2015 12:23 PM CDT) Report Endoscopy POC _ Patient Name: Madalyn Walton ? Procedure Date: 12/15/2015 12:23 PM ? Date of : 1975 ?Admit Type: Outpatient Age: 40 ? Gender: Female Attending MD: Armando Corona , ? _ Procedure: ? Colonoscopy Indications: ? Lower abdominal pain Providers: ? Armando Corona (Doctor), Myranda Keys, Enma Medina, ? Braddisher Patient Profile: ?? 40F pmh 40F pmh [...] Procedure Code(s): ? --- Professional --- ? 28172, Colonoscopy, flexible; with biopsy, single or multiple ? --- Technical --- ? 99590, Colonoscopy, flexible; with biopsy, single or multiple Diagnosis Code(s): ? --- Professional --- ? R10.30, Lower abdominal pain, unspecified ? --- Technical --- ? R10.30, Lower abdominal pain, unspecified CPT copyright 2015 [employer]. All rights reserved. The codes documented in this report are preliminary and upon manager creative services review may be revised to meet current compliance requirements. Armando Corona, 12/15/2015 12:47:51 PM This report has been signed electronically. Number of Addenda: 0 Note Initiated On: 12/15/2015 12:23 PM [facility] 12/15/2015 12:2 3 PM CDT Narrative Transcriptions Armando Corona MD - 12/15/2015 12:53 PM CDT Neg colon s/p random bx Armando Corona MD GI PROCEDURE ORDERAB LES Performing Organization Address City/[facility] Co de Phone Number [facility] * HCG URINE QUALITATIVE - POINT OF CARE (IP) (12/15/2015 11:35 AM CDT) HCG Qual Urine Negative Negative [facility] POCT TESTING QC Verified Yes Yes [facility] POC T TESTING Urine specimen (specimen) URINE / Unknown 12/15/2015 11:35 AM CDT Armando Corona MD LAB - POINT OF CARE ORDERABLES Performing Organization Address [facility] Co de Phone Number [facility] POCT TESTING [address] [phone] documented in this encounter Visit Diagnoses Diagnosis [...] (Anesthesia Volume Adjustment - Provider: Kenan García APRN-PRINTED CIRCUIT BOARD ASSEMBLY REPAIRER) documented in this encounter Care Teams Reservation Sales Agent Relationship Specialty Start Date End Date Feliciano Dash MD [address] [place] [address] PCP - General Internal Medicine 12/15/15 06/11/21 Jonathan Hartman, RN Foot Doctor 07/14/15 documented as of this encounter
--- OUTSIDE RECORDS SUMMARY | 2024-04-29 20:13 | XMS_ITS | Encounter Summary ---
Author Organization [facility] Address [address] [place] [address]. [place], [place] [address] [place] [address] Care Team Providers Care Yard Rigger Name Role Phone Bandar Melendez MD Primary Care Provider [phone] Reason for Visit * Reason Comments Abdominal Pain Encounter Details Date Type Department Care Team (Late st Contact Info) Description 03/01/2021 12:38 PM ANESTHESIOLOGY MEDICAL DOCTOR - 03/01/2021 4:36 PM ANESTHESIOLOGY MEDICAL DOCTOR Emergency [facility] [place] [address] Chio Benitez MD [address] [place] [address] Abdominal Pain Discharge Disposition: Home or Self Care (Routine Discharge) Social History Tobacco Use Types Packs/Day Years Used Date Smoking Tobacco: Former Smokeless Tobacco: Never Alcohol Use Standard Drinks/Week Comments Yes 0 (1 standard drink = 0.6 oz pur e alcohol) rarely Comments No Sex and Gender Information Value Date Recorded Sex Assigned at Not on file Legal Sex Female 12:23 PM ANESTHESIOLOGY MEDICAL DOCTOR Gender Identity Not on file Sexual Orientation Not on file COVID-19 Exposure Response Date Recorded In the last month, have you been in contact with someone who was confirmed or suspected to have Coronavirus / COVID-19? No / Unsure 03/01/2021 12:24 PM ANESTHESIOLOGY MEDICAL DOCTOR documented as of this encounter Last Filed Vital Signs Vital Sign Reading Time Taken Comments Blood Pressure 108/79 03/01/2021 3:00 PM ANESTHESIOLOGY MEDICAL DOCTOR Pulse 79 03/01/2021 3:00 PM ANESTHESIOLOGY MEDICAL DOCTOR Temperature 36.2 ??C (97.2 ??F) 03/01/2021 1 2:34 PM ANESTHESIOLOGY MEDICAL DOCTOR Respiratory Rate 16 03/01/2021 3:00 PM ANESTHESIOLOGY MEDICAL DOCTOR Oxygen Saturation 98% 03/01/2021 3:00 PM ANESTHESIOLOGY MEDICAL DOCTOR Inhaled Oxygen Concentration - - Weight 86.1 kg (189 lb 13.1 oz) 021 12:34 PM ANESTHESIOLOGY MEDICAL DOCTOR Height 167.6 cm (5' 6 ) 03/01/2021 12:3 4 PM ANESTHESIOLOGY MEDICAL DOCTOR Body Mass Index 30.64 03/01/2021 12:34 PM ANESTHESIOLOGY MEDICAL DOCTOR documented in this encounter Discharge Instructions * Discharge Instructions* Chio Benitez MD - 03/01/2021 4:12 PM ANESTHESIOLOGY MEDICAL DOCTOR Follow a clear liquid diet for the [...] drive or drink alcohol while using hydrocodone. THESIOLOGY MEDICAL DOCTOR THESIOLOGY MEDICAL DOCTOR * Attachments The following attachments cannot be sent through Care Everywhere. * Blood in the Urine (Hematuria) Discharge Instructions, Adult (Thai) * Abdominal Pain, Adult ED (Thai) documented in this encounter ED Notes * Divina Caldera RN - 03/01/2021 4:35 PM CST Discharge instructions reviewed with patient understanding. Pt discharged home with . THESIOLOGY MEDICAL DOCTOR * Divina Caldera RN - 03/01/2021 2:48 PM CST Bladder scan showed 0ml in bladder THESIOLOGY MEDICAL DOCTOR * Chio Benitez MD - 03/01/2021 2:37 PM CST [place], [place] EMERGENCY DEPARTMENT ENCOUNTER Chief Complaint Chief Complaint Patient presents with ??? 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 used: No Abdominal Pain Associated symptoms: diarrhea [...] encounter of 03/01/21 ECG 12 lead Narrative [address] Test Date: 2021-03-01 Pat Name: UJLIAN SAUER Department: Room: Gender: Female Mine Utility Operator: JOSE ALBERTO : 1975 Requested By: HAZEL HENSLEY Order Number: [id number] Reading MD: Measurements Intervals [place] Rate: 103 P: 42 CO: 153 QRS: 38 QRSD: 86 T: 42 [...] CATCH COLOR (U) YELLOW TRANSPARENCY CLEAR Specific [place] (U) 1.030 1.001 - 1.030 U PH [...] tablet, Refills: 0 Class: Print Comments: Per [place] law, C-II Rx's must include written & [...] the physician. Chio Benitez MD 03/01/21 1612 THESIOLOGY MEDICAL DOCTOR * SHARON Chilel - 03/01/2021 12:36 PM CST [place] EMERGENCY DEPARTMENT ENCOUNTER Medical Screening Examination [...] Chino Jarvis MD at 03/01/2021 4:06 PM ANESTHESIOLOGY MEDICAL DOCTOR THESIOLOGY MEDICAL DOCTOR THESIOLOGY MEDICAL DOCTOR * Julian Raphael RN - 03/01/2021 12:29 PM CST Pt ambulatory to ED from home c/o mid abdominal pain 08/29, dull that began Saturday. Vomit x 1 today.Pt is always nauseated. Pt history IBS-C, pt states this does not feel like her normal flare. Pt denies fevers. Pt seen in [facility] Saturday and saw PCP on Saturday for follow up. Liver enzymes were noted to be elevated with masses showing. THESIOLOGY MEDICAL DOCTOR documented in this encounter Plan of Treatment Not on file documented as of this encounter Procedures Procedure Name Priority Date/Time Associated Diagnosis Comments HC URINALYSIS AUTO W/O MICRO STAT 03/01/2021 2:27 PM ANESTHESIOLOGY MEDICAL DOCTOR COMPREHENSIVE METABOLIC PANEL STAT 03/01/2021 1:01 PM ANESTHESIOLOGY MEDICAL DOCTOR CBC W/DIFF AUTOMATED STAT 03/01/2021 1:01 PM ANESTHESIOLOGY MEDICAL DOCTOR TROPONIN, QUANT STAT 03/01/2021 1:01 PM ANESTHESIOLOGY MEDICAL DOCTOR LIPASE STAT 03/01/2021 1:01 PM ANESTHESIOLOGY MEDICAL DOCTOR ECG 12-LEAD Routine 03/01/2021 12:46 PM ANESTHESIOLOGY MEDICAL DOCTOR documented in this encounter Results * (ABNORMAL) URINALYSIS (03/01/2021 2:27 PM ANESTHESIOLOGY MEDICAL DOCTOR) SPECIMEN TYPE URINE CLEAN CATCH 03/01/2021 2:28 PM ANESTHESIOLOGY MEDICAL DOCTOR [facility] COLOR (U) YELLOW 03/01/2021 3:01 PM ANESTHESIOLOGY MEDICAL DOCTOR [facility] TRANSPARENCY CLEAR 03/01/2021 3:01 PM [facility] SPECIFIC GRAVITY (U) 1.030 1.001 - 1.030 03/01/2021 3:01 PM ANESTHESIOLOGY MEDICAL DOCTOR [facility] U PH 5.5 5.0 - 9.0 03/01/2021 3:01 PM [facility] LEUKOCYTES (U) NEGATIVE NEGATIVE 03/01/2021 3:01 PM [facility] NITRITES NEGATIVE NEGATIVE 03/01/2021 3:01 PM [facility] PROTEIN (U) 10 <30 MG/DL 03/01/2021 3:01 PM [facility] URINE GLUCOSE NORMAL NORMAL MG/DL 03/01/2021 3:01 PM [facility] KETONES MG/DL (U) NEGATIVE NEGATIVE MG/DL 03/01/2021 3:01 PM [facility] UROBILINOGEN 2.0(A) NORMAL MG/DL 03/01/2021 3:01 PM ANESTHESIOLOGY MEDICAL DOCTOR [facility] BILIRUBIN (U) NEGATIVE NEGATIVE MG/DL 03/01/2021 3:01 PM ANESTHESIOLOGY MEDICAL DOCTOR [facility] BLOOD (U) 2+(A) NEGATIVE 03/01/2021 3:01 PM ANESTHESIOLOGY MEDICAL DOCTOR [facility] CULTURE & SENSITIVITY INDICATED? CULTURE IS NOT INDICATED 03/01/2021 3:01 PM ANESTHESIOLOGY MEDICAL DOCTOR [facility] MUCUS RARE /LPF 03/01/2021 3:01 PM ANESTHESIOLOGY MEDICAL DOCTOR [facility] WBC/HPF <1 <6 /HPF 03/01/2021 3:01 PM ANESTHESIOLOGY MEDICAL DOCTOR [facility] RBC/HPF 14(H) <6 /HPF 03/01/2021 3:01 PM ANESTHESIOLOGY MEDICAL DOCTOR [facility] SQUAMOUS EPITHELIALS RARE /HPF 03/01/2021 3:01 PM ANESTHESIOLOGY MEDICAL DOCTOR [facility] URINE SPECIMEN OBTAINED BY CLEAN CATCH PROCEDURE / Unknown 03/01/2021 2:27 PM ANESTHESIOLOGY MEDICAL DOCTOR Hazel Hensley [facility] URINE ORDERABLES Final Resu lt [facility] [address] [place] [address], [place] [phone] * (ABNORMAL) LIPASE (03/01/2021 1:01 PM ANESTHESIOLOGY MEDICAL DOCTOR) LIPASE 502(H) 73 - 393 UNITS/L 03/01/2021 1:49 PM ANESTHESIOLOGY MEDICAL DOCTOR [facility] 03/01/2021 1:01 PM ANESTHESIOLOGY MEDICAL DOCTOR Hazel Hensley [facility] [facility] [facility] Final Resul t [facility] [address] [place] [address], * TROPONIN, QUANT (03/01/2021 1:01 PM ANESTHESIOLOGY MEDICAL DOCTOR) [facility] TROPONIN I HIGH SENSITIVITY 3 <54 ng/L 03/01/2021 1:49 PM ANESTHESIOLOGY MEDICAL DOCTOR [facility] Comment: HIGH DOSES OF BIOTIN, TROPONIN-SPECIFIC AUTOANTIBODIES, AND ANTIBODY THERAPY CONTAINING HAMA MAY INTERFERE WITH THIS TEST RESULT. CORRELATION TO CLINICAL HISTORY AND PRESENTATION RECOMMENDED. 03/01/2021 1:01 PM ANESTHESIOLOGY MEDICAL DOCTOR Hazel Hensley [facility] LABORATORY Final Resul t [facility] [address] [place] [address], * (ABNORMAL) COMPREHENSIVE METABOLIC PANEL (03/01/2021 1:01 PM ANESTHESIOLOGY MEDICAL DOCTOR) [facility] GLUCOSE 83 70 - 99 MG/DL 03/01/2021 1:49 PM ANESTHESIOLOGY MEDICAL DOCTOR [facility] BUN 13 7 - 18 MG/DL 03/01/2021 1:49 PM [facility] CREATININE S/P/B 1.17(H) 0.55 - 1.02 MG/DL 03/01/2021 1:49 PM ANESTHESIOLOGY MEDICAL DOCTOR [facility] SODIUM S/P/B 136 136 - 145 MMOL/L 03/01/2021 1:49 PM ANESTHESIOLOGY MEDICAL DOCTOR [facility] POTASSIUM S/P/B 4.3 3.5 - 5.1 MMOL/L 03/01/2021 1:49 PM ANESTHESIOLOGY MEDICAL DOCTOR [facility] CHLORIDE S/P/B 109(H) 100 - 108 MMOL/L 03/01/2021 1:49 PM ANESTHESIOLOGY MEDICAL DOCTOR [facility] CO2 24.2 21 - 32 MMOL/L 03/01/2021 1:49 PM ANESTHESIOLOGY MEDICAL DOCTOR [facility] CALCIUM S/P/B 9.2 8.5 - 10.1 MG/DL 03/01/2021 1:49 PM [facility] BILIRUBIN TOTAL S/P/B 0.7 0.2 - 1.2 MG/DL 03/01/2021 1:49 PM [facility] Comment: THIS ASSAY IS NOT RECOMMENDED FOR PATIENTS UNDERGOING TREATMENT WITH ELTROMBOPAG DUE TO THE POTENTIAL FOR FALSELY ELEVATED RESULTS. TOTAL PROTEIN S/P/B 8.0 6.4 - 8.2 G/DL 03/01/2021 1:49 PM [facility] ALBUMIN S/P/B 3.6 3.4 - 5.0 G/DL 03/01/2021 1:49 PM [facility] AST 35 15 - 37 U/L 03/01/2021 1:49 PM [facility] ALT 74(H) 14 - 55 U/L 03/01/2021 1:49 PM [facility] ALKALINE PHOSPHATASE S/P/B 87 50 - 136 U/L 03/01/2021 1:49 PM [facility] ANION GAP 2.8(L) 5 - 15 MMOL/L 03/01/2021 1:49 PM [facility] BUN CREATININE RATIO 11.1 6 - 26 03/01/2021 1:49 PM [facility] A/G RATIO 0.8(L) 1.0 - 2.0 RATIO 03/01/2021 1:49 PM [facility] EGFR NON-AFR. AMER. 56(L) >90 ML/MIN/1.7 3 M2 03/01/2021 1:49 PM [facility] EGFR AFR. AMER. 65(L) >90 ML/MIN/1.7 3 M2 03/01/2021 1:49 PM [facility] Comment: NOTE: eGFR is not calculated for patients <18 years of age. This is an estimated GFR (CKD EPI) and should not be used for calculating drug doses. 03/01/2021 1:01 PM ANESTHESIOLOGY MEDICAL DOCTOR Hazel Hensley [employer] [facility] Final Resul t [facility] [address] [place] [address], * (ABNORMAL) CBC W/DIFF AUTOMATED (03/01/2021 1:01 PM ANESTHESIOLOGY MEDICAL DOCTOR) WBC 11.2(H) 4.5 - 11.0 x10'3/uL 03/01/2021 1:13 PM ANESTHESIOLOGY MEDICAL DOCTOR [facility] RBC 4.94 4.20 - 5.40 x10'6/uL 03/01/2021 1:13 PM ANESTHESIOLOGY MEDICAL DOCTOR [facility] HGB 14.8 12.0 - 16.0 G/DL 03/01/2021 1:13 PM ANESTHESIOLOGY MEDICAL DOCTOR [facility] HCT 45.6 38.0 - 48.0 % 03/01/2021 1:13 PM ANESTHESIOLOGY MEDICAL DOCTOR [facility] MCV 92.3 81.0 - 99.0 FL 03/01/2021 1:13 PM ANESTHESIOLOGY MEDICAL DOCTOR [facility] MCH 30.0 27.0 - 31.0 PG 03/01/2021 1:13 PM ANESTHESIOLOGY MEDICAL DOCTOR [facility] MCHC 32.5 32.0 - 36.0 G/DL 03/01/2021 1:13 PM ANESTHESIOLOGY MEDICAL DOCTOR [facility] RDW 13.6 11.5 - 14.5 % 03/01/2021 1:13 PM ANESTHESIOLOGY MEDICAL DOCTOR [facility] PLT 314 130 - 400 x10'3/uL 03/01/2021 1:13 PM [facility] MPV 9.2(L) 9.3 - 12.2 FL 03/01/2021 1:13 PM [facility] DIFFERENTIAL TYPE AUTOMATED DIFFERENTIAL 03/01/2021 1:13 PM [facility] NEUTROPHILS % 80.4 % 03/01/2021 1:13 PM [facility] LYMPHOCYTES % 11.9 % 03/01/2021 1:13 PM [facility] MONOCYTES % 5.6 % 03/01/2021 1:13 PM [facility] EOSINOPHILS 1.0 % 03/01/2021 1:13 PM [facility] BASOPHILS 0.6 % 03/01/2021 1:13 PM [facility] IMMATURE GRANS % 0.5 % 03/01/20 1:13 PM [facility] ABS. NEUTROPHILS TOTAL 8.97(H) 1.80 - 7.70 x10'3/uL 03/01/2021 1:13 PM [facility] ABS. LYMPHOCYTES 1.33 1.00 - 4.80 x10'3/uL 03/01/2021 1:13 PM [facility] ABS. MONOCYTES 0.63 0.24 - 0.86 x10'3/uL 03/01/2021 1:13 PM [facility] ABS. EOSINOPHILS 0.11 0.04 - 0.36 x10'3/uL 03/01/2021 1:13 PM [facility] ABS. BASOPHILS 0.07 0.01 - 0.08 x10'3/uL 03/01/2021 1:13 PM [facility] ABS. IMMATURE GRANULOCYTES 0.06 0.00 - 0.49 x10'3/uL 03/01/2021 1:13 PM [facility] 03/01/2021 1:01 PM ANESTHESIOLOGY MEDICAL DOCTOR Hazel Hensley [employer] [facility] LABORAT[facility] Final Resul t [facility] [address] [place] [address], * ECG 12 lead (03/01/2021 12:46 PM ANESTHESIOLOGY MEDICAL DOCTOR) 03/01/2021 12:4 6 PM ANESTHESIOLOGY MEDICAL DOCTOR Narrative [facility] - 03/01/2021 9:32 PM ANESTHESIOLOGY MEDICAL DOCTOR ?[facility] ? [address] [facility] ? Test Date: ?2021-03-01 Pat Name: ? JULIAN SAUER ?Department: ? Room: ? EXAM16 Gender: ? Female ? Mine Utility Operator: ?? AA : ?1975 ? Requested By: HAZEL HENSLEY Order Number: [id number] ? Reading MD: ?? Juanpablo Otto ? Measurements Intervals ?[place] ? Rate: ? 103 ?P: ?42 CO: ? 153 ?QRS: ?38 QRSD: ? 86 ? T: ?42 QT: ? 328 ? QTc: ?430 ? Interpretive Statements SINUS TACHYCARDIA POSSIBLE LEFT ATRIAL ENLARGEMENT ABNORMAL RHYTHM ECG No previous ECG available for comparison THESIOLOGY MEDICAL DOCTOR Procedure Note Juanpablo Otto MD - 03/01/2021 [facility] Test Date: 2021-03-01 Pat Name: JULIAN SAUER Department: Room: [facility] Gender: Female Mine Utility Operator: JOSE ALBERTO : 1975 Requested By: HAZEL HENSLEY Order Number: [id number] Reading MD: Juanpablo Otto Measurements Intervals [place] Rate: 103 P: 42 CO: 153 QRS: 38 QRSD: 86 T: 42 QT: 328 QTc: 430 Interpretive Statements SINUS TACHYCARDIA POSSIBLE LEFT ATRIAL ENLARGEMENT ABNORMAL RHYTHM ECG No previous ECG available for comparison THESIOLOGY MEDICAL DOCTOR Hazel Hensley [facility] ECG ORDERABLES Final Resul t [facility] [...] Sat03/01/21 at 1445 Given 03/01/2021 2:43 PM ANESTHESIOLOGY MEDICAL DOCTOR 4 mg ondansetron (ZOFRAN) injection 4 mg 4 mg, Intravenous, Once, 1 dose, On Sat03/01/21 at 1445, IV push over 2-5 minutes. Given 03/01/2021 2:43 PM ANESTHESIOLOGY MEDICAL DOCTOR 4 mg sodium chloride 0.9% bolus infusion SOLN 1,000 mL 1,000 mL, Intravenous, Administer over 15 Minutes, Once, 1 dose, On Sat03/01/21 at 1445 New Bag 03/01/2021 2:43 PM ANESTHESIOLOGY MEDICAL DOCTOR 1,000 mLs documented in this encounter Active and Recently Administered Medications Times are shown in ANESTHESIOLOGY MEDICAL DOCTOR. Scheduled Medication Order 02/27/2021 02/28/2021 03/01/2021 morphine [...] ANTHONY) documented in this encounter Care Teams Yard Rigger Relationship Specialty Start Date End Date Bandar Melendez MD [address] [place] [address] PCP - General INTERNAL MEDICINE 03/01/21 documented as of this encounter
--- OUTSIDE RECORDS SUMMARY | 2024-04-29 20:13 | XMS_ITS | Encounter Summary ---
Author Organization [facility] Address [address] [place] [address] Phone Care Team Providers Care Clinical Technician Name Role Phone Toi Fair DO Unavailable [phone] Amadeo Hernandez MD Unavailable Isaiah Quiros MD Primary Care Provider [phone] Reason for Visit * Reason Onset Date Comments Nausea 10/31/2020 Encounter Details Date Type Department Care Team (Late st Contact Info) Description 10/31/2020 Telephone [facility] - Gastroenterology - [place] [address] [place] [id number] Harvey Keenan MD [address] [place] [address] Nausea Social History Tobacco Use Types Packs/Day Years Used Date Smoking Tobacco: Never Assessed Comments Unknown Sex and Gender Information Value Date Recorded Sex Assigned at Not on file Legal Sex Female 3:35 PM REGIONAL HR MANAGER Gender Identity Not on file Sexual Orientation [...] review, patient had colonoscopy on 09/22/2020 at [place]. Per chart review, patient was advised to go to ER, see nurse triage for 09/28/2020. Patient jeremiah was seen at the ER at [place] and was diagnosed with ovarian cyst and had a colonoscopy ordered. Denies any black, bloody or tarry stools. New patient appt scheduled for 11/11/2020. Called [place] [facility], spoke with Mohit. Will fax letter head with request to [facility]. [phone]. Fax successful. documented in this encounter Plan of Treatment Not on file documented as of this encounter Visit Diagnoses Not on filedocumented in this encounter Care Teams Clinical Technician Relationship Specialty Start Date End Date Isaiah Quiros MD [address], [address] [place] [address] PCP - General Internal Medicine 05/08/18 Toi Fair DO Gastroenterology 12/03/16 Amadeo Hernandez MD [address] [place] [address] 12/03/16 documented as of this encounter
--- OUTSIDE RECORDS SUMMARY | 2024-04-29 20:13 | XMS_ITS | Encounter Summary ---
Author Organization [facility] Address [address] [place] [address] Phone Care Team Providers Care Heel Dipper Name Role Phone Toi Fair DO Unavailable [phone] Amadeo Hernandez MD Unavailable Isaiah Quiros MD Primary Care Provider [phone] Reason for Visit * Reason Onset Date Comments Results 09/28/2020 Encounter Details Date Type Department Care Team (Late st Contact Info) Description 09/28/2020 Telephone [facility] - Gastroenterology [facility] [address] [place] [address] Toi Fair, DO [address] [address] Results Social History Tobacco Use Types Packs/Day Years Used Date Smoking Tobacco: Never Assessed Comments Unknown Sex and Gender Information Value Date Recorded Sex Assigned at Not on file Legal Sex Female 3:35 PM SIDE GUIDER Gender Identity Not on file Sexual Orientation Not on file documented as of this encounter Miscellaneous Notes * Telephone Encounter - Marlene Hodge RN - 09/28/2020 9:50 AM CDT Patient had colonoscopy done at [place] on 09/22/2020. Per Dr. Fair report, patient is to repeat colonoscopy in 10 years. Letter sent to patient. Recall added to epic. documented in this encounter Plan of Treatment Not on file documented as of this encounter Visit Diagnoses Not on filedocumented in this encounter Care Teams Heel Dipper Relationship Specialty Start Date End Date Isaiah Quiros MD [address], [address] [place] [address] PCP - General Internal Medicine 05/08/18 Toi Fair DO Gastroenterology 12/03/16 Amadeo Hernandez MD [address] [place] [address] 12/03/16 documented as of this encounter
--- OUTSIDE RECORDS SUMMARY | 2024-04-29 20:13 | XMS_ITS | Encounter Summary ---
Author Organization [facility] Address [address] [place] [address] Care Team Providers Care Resistance Machine Welder Setter Name Role Phone Unavailable Primary Care Provider Unavailabl e Encounter Details Date Type Department Care Team (Latest Contact Info) Description 06/29/2015 1:05 PM CONFERENCE PLANNING MANAGER - 06/29/2015 11:59 PM CONFERENCE PLANNING MANAGER Hospital Encounter [facility] [address] [facility] [address] [place] [address] Miriam Frye PA [address] [facility] [address] [place] [address] Discharge Disposition: Home or Self Care [...] BILAT 2VW Routine 06/29/2015 1:1 8 PM CONFERENCE PLANNING MANAGER Pain in joint, pain in unspecified joint documented in this encounter Results * XR HANDS BILATERAL 2 VIEWS (06/29/2015 1:18 PM CONFERENCE PLANNING MANAGER) Anatomical Region Laterality Modality Wrist / Hand, Upper Extremity Ra diographic Imaging 06/29/2015 7:37 PM CONFERENCE PLANNING MANAGER Impressions 06/29/2015 7:38 PM CONFERENCE PLANNING MANAGER Normal radiographs of both hands. Narrative 06/29/2015 7:38 PM CONFERENCE PLANNING MANAGER BILATERAL HANDS, TWO VIEWS OF EACH HISTORY: [...]
--- OUTSIDE RECORDS SUMMARY | 2024-04-29 20:13 | XMS_ITS | Encounter Summary ---
Author Organization [facility] Address [address] [place] [address] Phone Care Team Providers Care Transportation Aide Name Role Phone Toi Fair DO Unavailable [phone] Amadeo Hernandez MD Unavailable Isaiah Quiros MD Primary Care Provider [phone] Encounter Details Date Type Department Care Team (Late st Contact Info) Description 09/30/2020 Telephone [facility] - Gastroenter[facility] [address] [place] [address] Toi Fair, DO [address] [address] Social History Tobacco Use Types Packs/Day Years Used Date Smoking Tobacco: Never Assessed Comments Unknown Sex and Gender Information Value Date Recorded Sex Assigned at Not on file 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 This is good from 09/29/2020 to 09/29/2021. Patient notified, verbalized understanding. Called to Nory at [facility] in [facility], will get ready for patient. * Telephone Encounter - Sherri Cavanaugh CMA - 09/30/2020 1:03 PM CDT Prior authorization started through [employer] for Lubiprostone (Amiitiza). HARTMAN: [id number] documented in this encounter Plan of Treatment Not on file documented as of this encounter Visit Diagnoses Not on filedocumented in this encounter Care Teams Transportation Aide Relationship Specialty Start Date End Date Isaiah Quiros MD [address] [place] [address] PCP - General Internal Medicine 05/08/18 Toi Fair DO Gastroenterology 12/03/16 Amadeo Hernandez MD [address] [place] [address] 12/03/16 documented as of this encounter
--- OUTSIDE RECORDS SUMMARY | 2024-04-29 20:13 | XMS_ITS | Encounter Summary ---
Author Organization [facility] Address [address] [place] [address] Care Team Providers Care Compressed Air Pile Driver Operator Name Role Phone Jonathan Hartman Rhett RN Unavailable [phone] Reason for Visit * Reason Comments Pain Abdominal AP for 4 days/seen a jacqueline Grider and had CT scan as an outpatient/had elevated lipase and amylase/poor oral intake/hx diverticulitis * Auth/Cert Specialty Diagnoses / Procedures Referred By Kaylynn phillips Referred To Contact Diagnoses Intractable abdominal pain Referral ID Status Reason Start Date Expiration Date Visits Re quested Visits Authorized [id number] 1 1 Encounter Details Date Type Department Care Team (Latest Contact Info) Description 07/15/2015 1:00 PM CDT - 07/15/2015 1:30 PM CDT Surgery [facility] - Endoscopy Services [address] [place] [id number] Armando Corona MD [address] [place] [address] [place] [phone] ESOPHAGOGASTRODUODENOSCOPY (EGD) Surgery Details Date/Time Status Location OR Service Patient Class Case Class Case Type Trauma Case? 07/15/2015 1:00 PM Posted [facility] Endo 05 Gastroenterology Inpatient Elective > [...] Comments Your discharge diagnosis is Gastric ulcer [[id number]] Follow up with Primary Care Provider (PCP) [...] [facility] Will attempt to see [...] joints. She reports she has seen a field sales manager and was recently diagnosed with seronegative arthritis. They plan to start treatment after her current issues are resolved. She has trouble ambulating, especially after sitting for long periods of time and would like a cane. Evaluation: Mobility: Supine to Sit: Complete Preston Sit to Supine: Complete Preston Sit to Stand: Complete Preston Stand to Sit: Complete Preston Distance Ambulated: 50 FEET Ambulation: Assistive Device: [...] have been applied: Functional Assessment Tool Used: [facility] AM-PAC Basic Mobility Inpatient Short Form [...] Contact Information Primary Emergency Contact: Toi Smith [facility] Relation: Significant other Anticipated Discharge Date: Anticipated Discharge Date: 07/15/15 Anticipated level of care / disposition at discharge: Home Prior Level of Functioning: 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 If this is the last case workerclinical case manager this note serves as discharge summary. Jonathan Hartman RN CM [phone] (this number is not to be given [...] and lipase PCP Name: Feliciano Molina in [place], [place] PCP to be contacted?: Emergency Dept to notify Referring physician does not request call back. If patient admitted, admit to PCP. Zully Alfaro RN [facility] Access LIne [phone] documented in this encounter H&P Notes * [...] Pain Abdominal AP for 4 days/seen at [facility] and had CT scan as an outpatient/had [...] results for input(s): MAGMGDL in the last 75686 hours. No results for input(s): PHOS in the last 55467 hours. No results for input(s): AMYLASE in the last 84299 hours. No results for input(s): PHART, XGZ5NJG, PO2ART, H8BXMWLJ, BEART, FIO2 in the last 34490 hours. Invalid input(s): MRV3RSW No results for input(s): BNP in the last 95144 hours. No results for input(s): CDIFFTOXINAB in the last 52138 hours. No results for input(s): HGBA1C in the last 88521 hours. No results for input(s): INR in the last 13982 hours. No results for input(s): CHOL, TRIG, HDL, LDLCALC in the last 89108 hours. No results for input(s): PT in the last 38107 hours. No results for input(s): PTT in the last 97831 hours. No results for input(s): T3FREE in the last 20933 hours. No results for input(s): T4FREE in the last 72644 hours. No results for input(s): TSH in the last 86403 hours. Recent Labs Component Name 07/14/15 0721 [...] days prior CT 2 days ago at [facility] showed diverticulitis colonoscopy in April when I had diverticulitis and it showed inflammation Notes dx of diverticulitis at [facility] in April which resulted in readmission to [facility] for completion of antibiotics. 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 (+)epigastric abd pain with food over past [...] results for input(s): INR in the last 99482 hours. No results for input(s): AMYLASE in the last 09377 hours. Recent Labs Component Name 07/13/15 1713 LIPASE 411* Prior Imaging: CT 2 days ago at [facility] showed diverticulitis Prior Endoscopies: colonoscopy in April [...] arthritides PLAN * obtain CT imaging from [facility] from 2 days prior (young pt, would not want to repeat CT) * 10 days of antibiotics total regardless * f/u stool studies * outpt colonoscopy after inflammation has subsided * EGD tomorrow Thank you for allowing me to participate in the care of your patient. Do not hesitate to contact meif you have further questions. Armando Corona MD [facility], Gastroenterology South Division [facility] office: [phone] Exchange: [phone] * Colleen Bragg - 07/14/2015 3:35 PM CDTAssociated Order(s): IP CONSULT FOR ADVANCE DIRECTIVES Advance directive information and advance directive form provided to patient. Colleen Bragg [facility] Mixer [employer] documented in this encounter ED Notes * Paris Kaur RN - 07/13/2015 10:09 PM CDT Chart is available for review, submitted by Paris Gutierrez RN at [employer] [id number] Situation: Patient is a 40 y.o. female that came to the ER via Personal Transportation with - Chief Complaint Patient presents with ??? Pain Abdominal AP for 4 days/seen at [facility] and had CT scan as an outpatient/had [...] with the patient: 07/13/2015 20:28 Madalyn Walton [id number] [facility] EMERGENCY DEPARTMENT History Chief Complaint Patient presents with ??? Pain Abdominal AP for 4 days/seen at [facility] and had CT scan as an outpatient/had [...] vomiting, blood in stool and urine, dysuria. [facility] checked for gallstones and presented [...] 67.4 44.0-73.0 % Lymph 24.6 20.0-43.0 % [place] 6.3 5.0-13.0 % Eos 0.5 0.0-6.0 % Baso 0.8 0.0-2.0 % Immature Grans 0.4 0-1 % Neutro Abs 7.61 (H) 2.01-7.14 x10^9/L Lymph Abs 2.78 1.07-3.94 x10^9/L [place] Abs 0.71 0.26-1.07 x10^9/L Eosin Abs 0.06 [...] 07/15/2015 1:43 PM CDT Intractable abdominal pain MPO/IN 3 AUTOANTIBODIES PANEL AM Draw 5:51 AM [...] Co de Phone Number [facility] POCT TESTING [address] [place] [address] * LAB RESULTS ORDER (07/19/2015 5:06 AM CDT) Narrative 07/19/2015 5:06 AM CDT Ordered by an unspecified provider. Scanned Document LAB - THERAPEUTIC DR UG MONITORING ORDERABLES * GROSS + MICRO EXAM (STL) (07/15/2015 2:30 PM CDT) Case Report Surgical Pathology Report ? Case: [id number] ? Authorizing Provider: ??Armando Corona MD ?Collected: ? 07/15/2015 02:30 PM ? Ordering Location: ? [facility] ?Received: ?07/16/2015 06:21 AM ? Pathologist: ? Starla Rivera MD ? Specimen: ?Antrum/Gastri c Biopsy ? 07/18/2015 3:33 PM CDT [facility] Final Diagnosis 1. ??Gastric antrum, biopsy: -- ??Focal mild chronic inflammation [facility] 07/18/2015 3:33 PM CDT [facility] Gross Description Received in formalin in a container labeled Madalyn Walton, Antrum/gastric biopsy. ??The container holds multiple pink-baird tissue fragments, measuring from 0.2 cm, up to 0.8 cm. ??The specimen is entirely submitted in a cassette labeled A1. DYT/tc 07/18/2015 3:33 PM CDT [facility] Microscopic Description Sections show fragments of gastric mucosa with focal mild chronic acute inflammation. There is no evidence of dysplasia or malignancy. An immunostain for H. pylori is negative. All of the stain(s), control slide(s) and test tissue slide(s) were judged as technically acceptable. [facility] 07/18/2015 3:33 PM CDT [facility] Pathology/Cytolo gy GASTRIC ANTRAL BIOPSY SPECIMEN / Unknown 07/15/2015 2:30 PM CDT 07/16/2015 6:21 AM CDT Armando Corona MD LAB - PATHOLOGY/CYTO LOGY ORDERABLES [facility] [address] [place] [address] * EGD (07/15/2015 2:08 PM CDT) Report Endoscopy POC _ Patient Name: Madalyn Walton ? Procedure Date: 07/15/2015 2:08 PM ? Date of : 1975 ?Admit Type: Inpatient Age: 40 ? Gender: Female Attending MD: Armando Corona, ? _ Procedure: ? Upper GI endoscopy Indications: ? Epigastric abdominal pain Providers: ? Armando Corona (Doctor), Felipe Gasca RN, Daren ? Jose, Scheduling Assistant Patient Profile: ?? 40F pmh depression, arthritis [...] Procedure Code(s): ? --- Professional --- ? 90932, Esophagogastroduod enoscopy, flexible, transoral; with biopsy, ? single or multiple ? --- Technical --- ? 51281, Esophagogastroduod enoscopy, flexible, transoral; with biopsy, ? single or multiple Diagnosis Code(s): ? --- Professional --- ? K25.9, Gastric ulcer, unspecified as acute or chronic, without ? hemorrhage or perforation ? R10.13, Epigastric pain ? --- Technical --- ? K25.9, Gastric ulcer, unspecified as acute or chronic, without ? hemorrhage or perforation ? R10.13, Epigastric pain CPT copyright 2015 [employer]. All rights reserved. The codes documented in this report are preliminary and upon veterinary surgery technologist review may be revised to meet current compliance requirements. Armando Corona, 07/15/2015 2:36:07 PM This report has been signed electronically. Number of Addenda: 0 Note Initiated On: 07/15/2015 2:08 PM [facility] 07/15/2015 2:08 PM CDT Narrative [...] Armando Corona MD GI PROCEDURE ORDERAB LES [facility] * HCG URINE QUALITATIVE - POINT OF CARE (IP) (07/15/2015 1:43 PM CDT) HCG Qual Urine Negative Negative [facility] POCT TESTING QC Verified Yes Yes [facility] POC T TESTING Urine specimen (specimen) URINE / Unknown 07/15/2015 1:43 PM CDT Chas Tran MD LAB - POINT OF CARE ORDERABLES [facility] POCT TESTING [address] [place] [address] * MPO/IN 3 AUTOANTIBODIES PANEL (07/15/2015 5:51 AM CDT) Anti-myeloperox idase (MPO) Antibody <9.0 0.0 - 9.0 U/mL 07/18/2015 1:17 PM CDT [facility] ([facility]) Anti-proteinase 3 (IN-3) Abs <3.5 0.0 - 3.5 U/mL 07/18/2015 1:17 PM CDT [facility] ([facility]) Blood specimen (specimen) BLOOD SPECIMEN / Unknown Lab Venipuncture / Unknown 07/15/2015 5:51 AM CDT 07/15/2015 6:11 AM CDT Narrative [facility] ([facility]) - 07/18/2015 1:17 PM CDT Performed at: ??01 - [facility] [address] ??[id number] Hauling Contractor: Curtis Sanchez MD, Phone: ??[phone] Chucho Hinton MD LAB - CHEMISTRY MORGAN YEE [facility] ([facility]) * (ABNORMAL) CBC W AUTO DIFFERENTIAL (07/15/2015 5:51 AM CDT) WBC 5.5 4.4 - 10.7 x10^9/L 07/15/2015 6:28 AM CDT [facility] WBC Corrected x10^9/L 07/15/2015 6:28 AM CDT [facility] RBC 4.52 3.80 - 5.20 x10^12/L 07/15/2015 6:28 AM CDT [facility] Hemoglobin 12.5 12.0 - 15.6 gm/dL 07/15/2015 6:28 AM CDT [facility] Hematocrit 38.2 35.9 - 45.5 % 07/15/2015 6:28 AM CDT [facility] MCV 84.5 80.7 - 98.3 fl 07/15/2015 6:28 AM CDT [facility] MCH 27.7 26.7 - 34.0 pg 07/15/2015 6:28 AM CDT [facility] MCHC 32.7 30.8 - 35.9 gm/dL 07/15/2015 6:28 AM CDT [facility] Platelet Count 243 153 - 416 x10^9/L 07/15/2015 6:28 AM CDT [facility] RDW-CV 14.2 12.1 - 14.9 % 07/15/2015 6:28 AM CDT [facility] MPV 8.8(L) 9.4 - 12.9 fl 07/15/2015 6:28 AM CDT [facility] Neutrophils % 57.4 44.0 - 73.0 % 07/15/2015 6:28 AM CDT [facility] Lymphocytes % 33.0 20.0 - 43.0 % 07/15/2015 6:28 AM CDT [facility] Monocytes % 6.8 5.0 - 13.0 % 07/15/2015 6:28 AM CDT [facility] Eosinophils % 1.5 0.0 - 6.0 % 07/15/2015 6:28 AM CDT [facility] Basophils % 0.9 0.0 - 2.0 % 07/15/2015 6:28 AM CDT [facility] Immature Granulocytes 0.4 0 - 1 % 07/15/2015 6:28 AM CDT [facility] Neutrophil Absolute 3.13 2.01 - 7.14 x10^9/L 07/15/2015 6:28 AM CDT [facility] Lymphocytes Absolute 1.80 1.07 - 3.94 x10^9/L 07/15/2015 6:28 AM CDT [facility] Monocytes Absolute 0.37 0.26 - 1.07 x10^9/L 07/15/2015 6:28 AM CDT [facility] Eosinophils Absolute 0.08 0 - 0.47 x10^9/L 07/15/2015 6:28 AM CDT [facility] Basophils Absolute 0.05 0 - 0.08 x10^9/L 07/15/2015 6:28 AM CDT [facility] Immature Granulocytes Absolute 0.02 0.00 - 0.06 x10^9/L 07/15/2015 6:28 AM CDT [facility] nRBC Auto 0 /100 WBC 07/15/2015 6:28 AM CDT [facility] Blood BLOOD SPECIMEN / Unknown Lab Venipuncture / Unknown 07/15/2015 5:51 AM CDT 07/15/2015 6:11 AM CDT Chucho Hinton MD LAB - HEMATOLOGY ORD ERABLES [facility] [address] [place] [address] * LACTIC ACID BLOOD (07/15/2015 5:50 AM CDT) Lactic Acid 0.8 0.7 - 2.1 mmol/L 07/15/2015 6:50 AM CDT [facility] Blood BLOOD SPECIMEN / Unknown Lab Venipuncture / Unknown 07/15/2015 5:50 AM CDT 07/15/2015 6:11 AM CDT Chucho Hinton MD LAB - CHEMISTRY MORGAN YEE Performing Organization Address [facility] Co de Phone Number [facility] [address] [place] [phone] * (ABNORMAL) C-REACTIVE PROTEIN (07/15/2015 5:50 AM CDT) C-Reactive Protein 0.30(H) <0.30 mg/dL 07/15/2015 6:48 AM CDT [facility] Blood BLOOD SPECIMEN / Unknown Lab Venipuncture / Unknown 07/15/2015 5:50 AM CDT 07/15/2015 6:11 AM CDT Chucho Hinton MD LAB - CHEMISTRY MORGAN YEE Performing Organization Address [facility] Co de Phone Number [facility] [address] [place] [phone] * SED RATE WESTERGREN (07/15/2015 5:50 AM CDT) Pathologist [facility] Erythrocyte Sedimentation Rate Westergren 7 0 - 20 mm/hr 07/15/2015 6:36 AM CDT [facility] Blood BLOOD SPECIMEN / Unknown Lab Venipuncture / Unknown 07/15/2015 5:50 AM CDT 07/15/2015 6:11 AM CDT Chucho Hinton MD LAB - HEMATOLOGY ORD PRIMITIVO Performing Organization Address [facility] Co de Phone Number [facility] [address] [place] [phone] * (ABNORMAL) LACTOFERRIN FECAL QUALITATIVE (07/14/2015 1:44 PM CDT) Lactoferrin Fecal Positive( A) Negative 07/14/2015 9:15 PM CDT [facility] Stool STOOL SPECIMEN / Unknown Collection / Unknown 07/14/2015 1:44 PM CDT 07/14/2015 3:56 PM CDT Narrative [facility] - 07/14/2015 9:15 PM CDT Fecal lactoferrin is a marker for fecal leukocytes. CAUTION: A negative result does not exclude the presence of intestinal inflammation. This test is not recommended for children who are breast-fed; the presence of lactoferrin in breast milk can give false-positive results. Chucho Hinton MD LAB - BODY FLUID ORD ERABLES Performing Organization Address [facility] Co de Phone Number [facility] [address] [place] [address], [facility] [phone] * CLOSTRIDIUM DIFFICILE GDH AG + TOXIN A+B (07/14/2015 1:43 PM CDT) GDH Antigen Negative Negative, Invalid 07/15/2015 9:08 AM CDT [facility] C difficile Toxin A + B Negative Negative, Invalid 07/15/2015 9:08 AM CDT [facility] Interpretation C difficile Negative for toxigenic C. difficile Negative for toxigenic C. difficile 07/15/2015 9:08 AM CDT [facility] Stool STOOL SPECIMEN / Unknown Collection / Unknown 07/14/2015 1:43 PM CDT 07/14/2015 3:55 PM CDT Chucho Hinton MD LAB - MICROBIOLOGY O RDERABLES Performing Organization Address [facility]/ZIP Co de Phone Number [facility] [address] [place] [address], [facility] [phone] * CULTURE STOOL+ E COLI SHIGA-LIKE TOXIN (07/14/2015 1:43 PM CDT) Culture No growth Salmonella, Shigella, Campylobacter , E. coli 0157:h7 or Yersinia CARLOS EDUARDO 07/17/2015 7:33 AM CDT [facility] Culture Negative E. coli Shiga-like toxin (NM) CARLOS EDUARDO 07/17/2015 7:33 AM CDT [facility] Stool STOOL SPECIMEN / Unknown Collection / Unknown 07/14/2015 1:43 PM CDT 07/14/2015 3:56 PM CDT Chucho Hinton MD LAB - MICROBIOLOGY O RDERABLES [facility] [address] [place] [address], [facility] [phone] * CULTURE URINE (07/14/2015 7:21 AM CDT) Culture <10,000 CFU/mL urogenital adelso CARLOS EDUARDO 07/15/2015 12:57 PM CDT [facility] Urine URINE SPECIMEN OBTAINED BY CLEAN CATCH PROCEDURE / Unknown Collection / Unknown 07/14/2015 7:21 AM CDT 07/14/2015 7:52 AM CDT Bri Ugarte MD LAB - MICROBIOLOGY O RADHAERAPOPEYE Performing Organization Address [facility]/ZIP Co de Phone Number [facility] [address] [place] [address], [facility] [phone] * (ABNORMAL) URINALYSIS ROUTINE W/REFLEX TO CULTURE (07/14/2015 7:21 AM CDT) Color UA Yellow Straw, Yellow, Dark Yellow 07/14/2015 8:19 AM CDT [facility] Clarity UA Clear 07/14/2015 8:19 AM CDT [facility] Specific [place] UA 1.021 1.005 - 1.030 07/14/2015 8:19 AM CDT [facility] pH UA 6.0 5.0 - [...] UA Negative Negative 07/14/2015 8:19 AM CDT [facility] Urobilinogen UA 0.2 0.1 - 1.0 EU/dL 07/14/2015 8:19 AM CDT [facility] WBC UA Auto 5-10(A) 0-2, 2-5 # /hpf 07/14/2015 8:19 AM CDT [facility] RBC UA Auto 10-20(A) 0-2, 2-5 # /hpf 07/14/2015 8:19 AM CDT [facility] Epithelial Cell UA Auto 5-10(A) 0-2, 2-5 # /hpf 07/14/2015 8:19 AM CDT [facility] Bacteria UA Auto 1+(A) None seen 07/14/2015 8:19 AM CDT [facility] Hyaline Casts UA Auto 2-5(A) 0 - 2 #/lpf 07/14/2015 8:19 AM CDT [facility] Reflex Status Culture to follow 07/14/2015 8:19 AM CDT [facility] Urine URINE SPECIMEN OBTAINED BY CLEAN CATCH PROCEDURE / Unknown Collection / Unknown 07/14/2015 7:21 AM CDT 07/14/2015 7:52 AM CDT Bri Ugarte MD LAB - URINALYSIS ORD ERABLES [facility] [address] [place] [address] * (ABNORMAL) LIPASE BLOOD (07/13/2015 5:13 PM CDT) Lipase 411(H) 10 - 220 U/L 07/13/2015 5:33 PM CDT [facility] Blood BLOOD SPECIMEN / Unknown Venipuncture / Unknown 07/13/2015 5:13 PM CDT 07/13/2015 5:16 PM CDT Bri Ugarte MD LAB - CHEMISTRY ORDE RABLES [facility] [address] [place], [place] [id number] * (ABNORMAL) COMPREHENSIVE METABOLIC PANEL (07/13/2015 5:13 PM CDT) [facility] Glucose 95 74 - 106 mg/dL 07/13/2015 5:33 PM CDT [facility] Sodium 136 136 - 145 mmol/L 07/13/2015 5:33 PM CDT [facility] Potassium 3.8 3.5 - 5.1 mmol/L 07/13/2015 5:33 PM CDT [facility] Chloride 107 98 - 107 mmol/L 07/13/2015 5:33 PM CDT [facility] CO2 20(L) 22 - 31 mmol/L 07/13/2015 5:33 PM CDT [facility] Calcium 9.7 8.5 - 10.1 mg/dL 07/13/2015 5:33 PM CDT [facility] Anion Gap 9 5 - 20 mmol/L 07/13/2015 5:33 PM CDT [facility] BUN 23(H) 7 - 21 mg/dL 07/13/2015 5:33 PM CDT [facility] Creatinine 0.94 0.50 - 1.30 mg/dL 07/13/2015 5:33 PM CDT [facility] Alkaline Phosphatase 94 38 - 126 U/L 07/13/2015 5:33 PM CDT [facility] ALT 35 12 - 78 U/L 07/13/2015 5:33 PM CDT [facility] AST 11 5 - 40 U/L 07/13/2015 5:33 PM CDT [facility] Protein Total 8.9(H) 6.4 - 8.2 gm/dL 07/13/2015 5:33 PM CDT [facility] Albumin 4.5 3.4 - 5.0 gm/dL 07/13/2015 5:33 PM CDT [facility] Bilirubin Total 0.7 0.2 - 1.0 mg/dL 07/13/2015 5:33 PM CDT [facility] eGFR by MDRD >60 >60 mL/min/1.7 3m2 07/13/2015 5:33 PM CDT [facility] eGFR by MDRD >60 >60 mL/min/1.7 3m2 07/13/2015 5:33 PM CDT [facility] Blood BLOOD SPECIMEN / Unknown Venipuncture / Unknown 07/13/2015 5:13 PM CDT 07/13/2015 5:16 PM CDT Bri Ugarte MD LAB - CHEMISTRY MORGAN YEE [facility] Organization Address City/State/ZIP Co de Phone Number [facility] [address] [place] [address] * (ABNORMAL) CBC W AUTO DIFFERENTIAL (07/13/2015 5:13 PM CDT) WBC 11.3(H) 4.4 - 10.7 x10^9/L 07/13/2015 5:19 PM CDT [facility] WBC Corrected x10^9/L 07/13/2015 5:19 PM CDT [facility] RBC 5.86(H) 3.80 - 5.20 x10^12/L 07/13/2015 5:19 PM CDT [facility] Hemoglobin 16.2(H) 12.0 - 15.6 gm/dL 07/13/2015 5:19 PM CDT [facility] Hematocrit 49.0(H) 35.9 - 45.5 % 07/13/2015 5:19 PM CDT [facility] MCV 83.6 80.7 - 98.3 fl 07/13/2015 5:19 PM CDT [facility] MCH 27.6 26.7 - 34.0 pg 07/13/2015 5:19 PM CDT [facility] MCHC 33.1 30.8 - 35.9 gm/dL 07/13/2015 5:19 PM CDT [facility] Platelet Count 375 153 - 416 x10^9/L 07/13/2015 5:19 PM CDT [facility] RDW-CV 14.5 12.1 - 14.9 % 07/13/2015 5:19 PM CDT [facility] MPV 8.6(L) 9.4 - 12.9 fl 07/13/2015 5:19 PM CDT [facility] Neutrophils % 67.4 44.0 - 73.0 % 07/13/2015 5:19 PM CDT [facility] Lymphocytes % 24.6 20.0 - 43.0 % 07/13/2015 5:19 PM CDT [facility] Monocytes % 6.3 5.0 - 13.0 % 07/13/2015 5:19 PM CDT [facility] Eosinophils % 0.5 0.0 - 6.0 % 07/13/2015 5:19 PM CDT [facility] Basophils % 0.8 0.0 - 2.0 % 07/13/2015 5:19 PM CDT [facility] Immature Granulocytes 0.4 0 - 1 % 07/13/2015 5:19 PM CDT [facility] Neutrophil Absolute 7.61(H) 2.01 - 7.14 x10^9/L 07/13/2015 5:19 PM CDT [facility] Lymphocytes Absolute 2.78 1.07 - 3.94 x10^9/L 07/13/2015 5:19 PM CDT [facility] Monocytes Absolute 0.71 0.26 - 1.07 x10^9/L 07/13/2015 5:19 PM CDT [facility] Eosinophils Absolute 0.06 0 - 0.47 x10^9/L 07/13/2015 5:19 PM CDT [facility] Basophils Absolute 0.09(H) 0 - 0.08 x10^9/L 07/13/2015 5:19 PM CDT [facility] Immature Granulocytes Absolute 0.05 0.00 - 0.06 x10^9/L 07/13/2015 5:19 PM CDT [facility] nRBC Auto 0 /100 WBC 07/13/2015 5:19 PM CDT [facility] Blood BLOOD SPECIMEN / Unknown Venipuncture / Unknown 07/13/2015 5:13 PM CDT 07/13/2015 5:16 PM CDT Bri Ugarte MD LAB - HEMATOLOGY ORD ERABLES [facility] Organization Address City/State/[facility] Co de Phone Number [facility] [address] [place] [address] documented in this encounter Visit Diagnoses Diagnosis [...] ($ New Bag/Syringe - Provider: Indira Jin APRN-PEDIATRIC CARDIOLOGIST)1429 (Anesthesia Volume Adjustment - Provider: RODRICK Mann) [...] Schaefer) 0405 ($ Given - Provider: Alyse Scheafer)0939 ($ Given - Provider: Brunilda Carson RN)1428 ($ Given - Provider: Laurel Flores, ANTHONY) SUMAtriptan (IMITREX) injection 6 mg (CANCELED) 6 mg, Subcutaneous, DAILY PRN, Migraine, Starting on Sat07/15/15 at 1154, Until 07/16/15 at 1554, MAX 6 mg/dose and 12 mg/24 hr 1531 ($ Given - Provider: Laurel Flores RN) documented in this encounter Care Teams Compressed Air Pile Driver Operator Relationship Specialty Start Date End Date Jonathan Hartman RN Tooth Inspector 07/14/15 documented as of this encounter
--- OUTSIDE RECORDS SUMMARY | 2024-04-29 20:13 | XMS_ITS | Encounter Summary ---
Author Organization [facility] Address [address] [facility] [place] [address] Care Team Providers Care Slide Forming Machine Operator Name Role Phone Jonathan Hartman RN Unavailable [phone] Reason for Visit * Auth/Cert Specialty Diagnoses / Procedures Referred By Kaylynn phillips Referred To Contact Diagnoses Intractable abdominal pain Referral ID Status Reason Start Date Expiration Date Visits Re quested Visits Authorized [id number] 1 1 Encounter Details Date Type Department Care Team (Late st Contact Info) Description 07/15/2015 2:16 PM CDT Anesthesia Event [facility] [address] [place] [id number] Jonathan Costa DO [address] [facility] [place] [address] Chas Tran MD [address] [facility] [place] [address] Anesthesia Record Procedure Summary Procedure Name Responsible [...] : 1711; Orientation: Left; Placed By: Aishwarya Inspector Scales; Tolerance: Well 07/13/151711 by Femi Neff 07/16/15 1453 by Laurel Garza APRN-SUPERVISOR BACKFILLING documented in this encounter Social History Tobacco [...] CDT documented in this encounter Care Teams Slide Forming Machine Operator Relationship Specialty Start Date End Date Jonathan Hartman RN Neurophysiology Tech 07/14/15 documented as of this encounter
--- OUTSIDE RECORDS SUMMARY | 2024-04-29 20:13 | XMS_ITS | Encounter Summary ---
Author Organization [facility] Address [address] [place] [address] Phone Care Team Providers Care Bliss Press Operator Name Role Phone Toi Fair DO Unavailable [phone] Amadeo Hernandez MD Unavailable Isaiah Quiros MD Primary Care Provider [phone] Reason for Visit * Reason Onset Date Comments Medication Management 09/28/2020 Prior Authorization 09/28/2020 Encounter Details Date Type Department Care Team (Late st Contact Info) Description 09/28/2020 Telephone [facility] - Gastroenterology [facility] [address] [place] [phone] Toi Fair, DO [address] [phone] Medication Management; Prior Authorization Social History Tobacco Use Types Packs/Day Years Used Date Smoking Tobacco: Never Assessed Comments Unknown Sex and Gender Information Value Date Recorded Sex Assigned at Not on file Legal Sex Female 3:35 PM PARTS FABRICATOR Gender Identity Not on file Sexual Orientation Not on file documented as of this encounter Miscellaneous Notes * Telephone Encounter - Sherri Cavanaugh CMA - 09/30/2020 1:38 PM CDT Prior authorization started through CoverMyMeds. * Telephone Encounter - Marlene Hodge RN - 09/29/2020 11:45 AM CDT Called [facility] spoke with [employer], he will fax a prior auth request [...] She took the prescription to [facility]. Called [facility] in [place], spoke with [employer]. Patient dropped off prescription for Amitza 24 [...] on filedocumented in this encounter Care Teams Bliss Press Operator Relationship Specialty Start Date End Date Isaiah Quiros MD [address], [address] [place] [address] PCP - General Internal Medicine 05/08/18 Toi Fair DO Gastroenterology 12/03/16 Amadeo Hernandez MD [address] [place] [address] 12/03/16 documented as of this encounter
--- OUTSIDE RECORDS SUMMARY | 2024-04-29 20:13 | XMS_ITS | Encounter Summary ---
Author Organization [facility] Address [address] [place] [address] Phone Care Team Providers Care Banquet Bartender Name Role Phone Manjula Toi Romero DO Unavailable Amadeo Hernandez MD Unavailable Isaiah Quiros MD Primary Care Provider [phone] Reason for Visit * Reason Onset Date Comments Abdominal Pain 09/28/2020 Encounter Details Date Type Department Care Team (Late st Contact Info) Description 09/28/2020 Nurse Triage [facility] - Gastroenterology [facility] [address] [place] [address] Toi Fair, DO [address] [address] Abdominal Pain Social History Tobacco Use Types Packs/Day Years Used Date Smoking Tobacco: Never Assessed Comments Unknown Sex and Gender Information Value Date Recorded Sex Assigned at Not on file Legal Sex Female 3:35 PM 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 Called patient back. Patient reports that she had a colonoscopy at [place] on 09/22/2020. Patient started having right side [...] on filedocumented in this encounter Care Teams Banquet Bartender Relationship Specialty Start Date End Date Isaiah Quiros MD [address], [address] [place] [address] PCP - General Internal Medicine 05/08/18 Toi Fair DO Gastroenterology 12/03/16 Amadeo Hernandez MD [address] [place] [address] 12/03/16 documented as of this encounter
--- OUTSIDE RECORDS SUMMARY | 2024-04-29 20:13 | XMS_ITS | Encounter Summary ---
Author Organization [facility] Address [address] [place] [address] Phone Care Team Providers Care Body Art Technician Name Role Phone Toi Fair DO Unavailable [phone] Amadeo Hernandez MD Unavailable Isaiah Quiros MD Primary Care Provider [phone] Encounter Details Date Type Department Care Team (Late st Contact Info) Description 09/01/2020 Telephone [facility] - Gastroenterology [facility] [address] [place] [address] Toi Fair, DO [address] [id number] Social History Tobacco Use Types Packs/Day Years Used Date Smoking Tobacco: Never Assessed Comments Unknown Sex and Gender Information Value Date Recorded Sex Assigned at Not on file Legal Sex Female 3:35 PM ADJUNCT ENGLISH INSTRUCTOR Gender Identity Not on file Sexual Orientation Not on file documented as of this encounter Miscellaneous Notes * Telephone Encounter - Omayra Walton - 09/01/2020 10:08 AM CDT Colon Prep instructions documented in this encounter Plan of Treatment Not on file documented as of this encounter Visit Diagnoses Not on filedocumented in this encounter Care Teams Body Art Technician Relationship Specialty Start Date End Date Isaiah Quiros MD [address] [place] [address] PCP - General Internal Medicine 05/08/18 Toi Fair DO Gastroenterology 12/03/16 Amadeo Hernandez MD [address] [place] [address] 12/03/16 documented as of this encounter
--- OUTSIDE RECORDS SUMMARY | 2024-04-29 20:13 | XMS_ITS | Encounter Summary ---
Author Organization [facility] Address [address] [place] [address] Phone Care Team Providers Care Seismograph Observer Name Role Phone Toi Fair DO Unavailable [phone] Amadeo Hernandez MD Unavailable Isaiah Quiros MD Primary Care Provider [phone] Encounter Details Date Type Department Care Team (Late st Contact Info) Description 09/01/2020 Telephone [facility] - Gastroenterology [facility] [address] [place] [address] Toi Fair, DO [address] [phone] Social History Tobacco Use Types Packs/Day Years Used Date Smoking Tobacco: Never Assessed Comments Unknown Sex and Gender Information Value Date Recorded Sex Assigned at Not on file Legal Sex Female 3:35 PM [facility]ILDREN[facility] ATTENDANT Gender Identity Not on file Sexual Orientation Not on file documented as of this encounter Miscellaneous Notes * Telephone Encounter - Omayra Walton - 09/01/2020 10:06 AM CDT Cheo Booking Form documented in this encounter Plan of Treatment Not on file documented as of this encounter Visit Diagnoses Not on filedocumented in this encounter Care Teams Seismograph Observer Relationship Specialty Start Date End Date Isaiah Quiros MD [address], [address] [place], [place] [id number] PCP - General Internal Medicine 05/08/18 Toi Fair DO Gastroenterology 12/03/16 Amadeo Hernandez MD [address] [place] [address] 12/03/16 documented as of this encounter
--- OUTSIDE RECORDS SUMMARY | 2024-04-29 20:13 | XMS_ITS | Encounter Summary ---
Author Organization [facility] Address [address] [place] [address]. [place], [place] [address] [place] [address] Care Team Providers Care Senior Energy Consultant Name Role Phone Bhupinder Tobias MD Primary Care Provider [phone] Encounter Details Date Type Department Care Team [...] on file Legal Sex Female 12:23 PM CLINIC CMA Gender Identity Not on file Sexual Orientation Not on file COVID-19 Exposure Response Date Recorded In the last month, have you been in contact with someone who was confirmed or suspected to have Coronavirus / COVID-19? No / Unsure 03/01/2021 12:24 PM CLINIC CMA documented as of this encounter Plan of Treatment Not on file documented as of this encounter Visit Diagnoses Not on filedocumented in this encounter Care Teams Senior Energy Consultant Relationship Specialty Start Date End Date Bhupinder Tobias MD [address] [place] [address] PCP - General INTERNAL MEDICINE 03/01/21 documented as of this encounter
--- OUTSIDE RECORDS SUMMARY | 2024-04-29 20:13 | XMS_ITS | Clinical Summary ---
Author Organization [facility] Address [address], [address] [address] Phone Care Team Providers Care External Relations Manager Name Role Phone Marbin Fair DO Unavailable [phone] Amadeo Hernandez MD Unavailable Isaiah Quiros MD Primary Care Provider [phone] Medications cholestyramine (QUESTRAN) 4 GM Pack Take 1 Packet by mouth 2 times daily (with meals). 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
--- OUTSIDE RECORDS SUMMARY | 2024-04-29 20:13 | XMS_ITS | Encounter Summary ---
Author Organization [facility] Address [address] [place] [address] Phone Care Team Providers Care Production Scheduler Name Role Phone Toi Fair DO Unavailable [phone] Amadeo Hernandez MD Unavailable Isaiah Quiros MD Primary Care Provider [phone] Encounter Details Date Type Department Care Team (Late st Contact Info) Description 11/11/2020 Telephone [facility] - Gastroenterology - [place] [address] [place] [address] Kalani Flannery Sofia, [facility] [address] [place] [address] Social History Tobacco Use Types Packs/Day Years Used Date Smoking Tobacco: Never Assessed Comments Unknown Sex and Gender Information Value Date Recorded Sex Assigned at Not on file Legal Sex Female 3:35 PM DIRECTOR PLANS Gender Identity Not on file Sexual Orientation [...] on filedocumented in this encounter Care Teams Production Scheduler Relationship Specialty Start Date End Date Isaiah Quiros MD [address], [address] [place] [address] PCP - General Internal Medicine 05/08/18 Toi Fair DO Gastroenterology 12/03/16 Amadeo Hernandez MD [address] [place] [address] 12/03/16 documented as of this encounter
--- OUTSIDE RECORDS SUMMARY | 2024-04-29 20:13 | XMS_ITS | Clinical Summary ---
Author Organization [facility] Address [address] [place] [address]. [place], [place] [address] [place] [address] Care Team Providers Care Intermodal Customer Service Name Role Phone Bhupinder Tobias MD Primary Care Provider [phone] Allergies No known active allergies Medications HYDROcodone-ibup [...] on file Legal Sex Female 12:23 PM LICENSED CERTIFIED ORTHOTIST Gender Identity Not on file Sexual Orientation Not on file Last Filed Vital Signs Vital Sign Reading Time Taken Comments Blood Pressure 108/79 03/01/2021 3:00 PM LICENSED CERTIFIED ORTHOTIST Pulse 79 03/01/2021 3:00 PM LICENSED CERTIFIED ORTHOTIST Temperature 36.2 ??C (97.2 ??F) 03/01/2021 1 2:34 PM LICENSED CERTIFIED ORTHOTIST Respiratory Rate 16 03/01/2021 3:00 PM LICENSED CERTIFIED ORTHOTIST Oxygen Saturation 98% 03/01/2021 3:00 PM LICENSED CERTIFIED ORTHOTIST Inhaled Oxygen Concentration - - Weight 86.1 kg (189 lb 13.1 oz) 021 12:34 PM LICENSED CERTIFIED ORTHOTIST Height 167.6 cm (5' 6 ) 03/01/2021 12:3 4 PM LICENSED CERTIFIED ORTHOTIST Body Mass Index 30.64 03/01/2021 12:34 PM LICENSED CERTIFIED ORTHOTIST Plan of Treatment Health Maintenance Due Date [...] patient's age to complete this topic Insurance [facility] Care Teams Intermodal Customer Service Relationship Specialty Start Date End Date Bhupinder Tobias MD [address] [place] [address] PCP - General INTERNAL MEDICINE 03/01/21
--- OUTSIDE RECORDS SUMMARY | 2024-04-29 20:14 | XMS_ITS | Encounter Summary ---
Author Organization [facility] Address [address] [place] [address] Care Team Providers Care Order Administrator Name Role Phone Isaiah Quiros MD Primary Care Provider [phone] Reason for Visit * Reason Comments Medication Refill Encounter Details Date Type Department Care Team (Late st Contact Info) Description 11/10/2019 Refill [facility] Gastroenterology [place] A [address] [facility] [address] [place] [address] Alex Mahajan MD [address] [facility] [address] [place] [address] Intermittent generalized abdominal pain Social [...] pain documented in this encounter Care Teams Order Administrator Relationship Specialty Start Date End Date Isaiah Quiros MD [address] [place] [address] PCP - General Internal Medicine 04/16/18 documented as of this encounter
--- OUTSIDE RECORDS SUMMARY | 2024-04-29 20:14 | XMS_ITS | Encounter Summary ---
Author Organization [facility] Address [address] [place] [address] Care Team Providers Care Insolvency Practitioner Name Role Phone Isaiah Quiros MD Primary Care Provider [phone] Reason for Visit * Reason Comments Medication Refill Encounter Details Date Type Department Care Team (Late st Contact Info) Description 12/21/2019 Refill [facility] Gastroenterology [place] A [address] [facility] [address] [place] [address] Alex Mahajan MD [address] [facility] [address] [place] [address] Intermittent generalized abdominal pain Social [...] pain documented in this encounter Care Teams Insolvency Practitioner Relationship Specialty Start Date End Date Isaiah Quiros MD [address] [place] [address] PCP - General Internal Medicine 04/16/18 documented as of this encounter
--- OUTSIDE RECORDS SUMMARY | 2024-04-29 20:14 | XMS_ITS | Encounter Summary ---
Author Organization [facility] Address [address] [place] [address] Care Team Providers Care Sales Special Agent Name Role Phone Isaiah Quiros MD Primary Care Provider [phone] Reason for Visit * Reason Onset Date Comments Medication Refill Medication Refill 07/01/2020 Encounter Details Date Type Department Care Team (Late st Contact Info) Description 06/28/2020 Refill [facility] Gastroenterology [place] A [address] [facility] [address] [place] [address] Alex Mahajan MD [address] [facility] [address] [place] [address] Intermittent generalized abdominal pain Social [...] pain documented in this encounter Care Teams Sales Special Agent Relationship Specialty Start Date End Date Isaiah Quiros MD [address] [place] [address] PCP - General Internal Medicine 04/16/18 documented as of this encounter
--- OUTSIDE RECORDS SUMMARY | 2024-04-29 20:14 | XMS_ITS | Encounter Summary ---
Author Organization [facility] Address [address] [place] [address] Care Team Providers Care Shotblast Operator Name Role Phone Isaiah Quiros MD Primary Care Provider [phone] Reason for Visit * Reason Comments Medication Refill Encounter Details Date Type Department Care Team (Late st Contact Info) Description 03/21/[address] [facility] Gastroenterology [place] A [address] [facility] [address] [place] [address] Alex Mahajan MD [address] [facility] [address] [place] [address] Intermittent generalized abdominal pain Social [...] pain documented in this encounter Care Teams Shotblast Operator Relationship Specialty Start Date End Date Isaiah Quiros MD [address] [place] [address] PCP - General Internal Medicine 04/16/18 documented as of this encounter
--- OUTSIDE RECORDS SUMMARY | 2024-04-29 20:14 | XMS_ITS | Clinical Summary ---
Author Organization [facility] Address [address] [place] [address] Phone Care Team Providers Care Breeder Service Technician Name Role Phone Isaiah Quiros MD Primary Care Provider [phone] Allergies No known active allergies Medications Medication [...] tablet Take 300 mg by mouth daily slat basket maker machine. Active pregabalin (LYRICA) 100 mg Capsule Take [...] Comments Blood Pressure 131/87 04/01/2019 10:31 AM GROUP HOME PARAPROFESSIONAL Pulse 101 04/01/2019 10:31 AM GROUP HOME PARAPROFESSIONAL Temperature 36.4 ??C (97.6 ??F) 12/29/2018 12:00 PM C DT Respiratory Rate 18 12/29/2018 12:00 PM CDT Oxygen Saturation 99% 12/29/2018 12:00 PM CDT Inhaled Oxygen Concentration - - Weight 90.5 kg (199 lb 9.6 oz) 04/01/2019 10:31 AM GROUP HOME PARAPROFESSIONAL Height 170.7 cm (5' 7.2 ) 04/01/2019 10:31 AM CS T Body Mass Index 31.08 04/01/2019 10:31 AM GROUP HOME PARAPROFESSIONAL Plan of Treatment Health Maintenance Due Date [...] Advance Directives For more information, please contact: [phone] * Full Code (Latest Code Status on File) Date Activated Date Inactivated Comments 12/27/2018 10:12 AM 12/29/2018 7:43 PM Care Teams Breeder Service Technician Relationship Specialty Start Date End Date Isaiah Quiros MD [address] [place] [address] PCP - General Internal Medicine 04/16/18
--- OUTSIDE RECORDS SUMMARY | 2024-04-29 20:14 | XMS_ITS | Encounter Summary ---
Author Organization [facility] Address [address] [place] [address] Care Team Providers Care Med Spa Manager Name Role Phone Isaiah Quiros MD Primary Care Provider [phone] Reason for Visit * Reason Comments Medication Refill Encounter Details Date Type Department Care Team (Late st Contact Info) Description 01/15/2020 Refill [facility] Gastroenterology [place] A [address] [facility] [address] [place] [address] Alex Mahajan MD [address] [facility] [address] [place] [address] Intermittent generalized abdominal pain Social [...] pain documented in this encounter Care Teams Med Spa Manager Relationship Specialty Start Date End Date Isaiah Quiros MD [address] [place] [address] PCP - General Internal Medicine 04/16/18 documented as of this encounter
--- OUTSIDE RECORDS SUMMARY | 2024-04-29 20:14 | XMS_ITS | Encounter Summary ---
Author Organization [facility] Address [address] [place] [address] Care Team Providers Care Development Specialist Name Role Phone Isaiah Quiros MD Primary Care Provider Reason for Visit * Reason Comments Medication Refill Encounter Details Date Type Department Care Team (Late st Contact Info) Description 03/13/2020 Refill [facility] Gastroenterology [place] A [address] [facility] [address] [place] [address] Alex Mahajan MD [address] [facility] [address] [place] [address] Social History Tobacco Use Types [...] on filedocumented in this encounter Care Teams Development Specialist Relationship Specialty Start Date End Date Isaiah Quiros MD [address] [place] [address] PCP - General Internal Medicine 04/16/18 documented as of this encounter
--- OUTSIDE RECORDS SUMMARY | 2024-04-29 20:15 | XMS_ITS | Encounter Summary ---
Author Organization [facility] Address [address] [place] [address] Care Team Providers Care Coloring Room Man Name Role Phone Isaiah Quiros MD Primary Care Provider [phone] Reason for Visit * Reason Comments Medication Refill Encounter Details Date Type Department Care Team (Late st Contact Info) Description 07/02/2019 Refill [facility] Gastroenterology [place] A [address] [facility] [address] [place] [address] Alex Mahajan MD [address] [facility] [address] [place] [address] Intermittent generalized abdominal pain Social [...] pain documented in this encounter Care Teams Coloring Room Man Relationship Specialty Start Date End Date Isaiah Quiros MD [address] [place] [address] PCP - General Internal Medicine 04/16/18 documented as of this encounter
--- OUTSIDE RECORDS SUMMARY | 2024-04-29 20:15 | XMS_ITS | Encounter Summary ---
Author Organization [facility] Address [address] [place] [address] Care Team Providers Care Solderer Dipper Name Role Phone Isaiah Quiros MD Primary Care Provider [phone] Reason for Visit * Reason Comments Medication Refill Encounter Details Date Type Department Care Team (Late st Contact Info) Description 11/16/2018 Refill [facility] Gastroenterology [place] A [address] [facility] [address] [place] [address] Alex Mahajan MD [address] [facility] [address] [place] [address] Social History Tobacco Use Types [...] on filedocumented in this encounter Care Teams Solderer Dipper Relationship Specialty Start Date End Date Isaiah Quiros MD [address] [place] [address] PCP - General Internal Medicine 04/16/18 documented as of this encounter
--- OUTSIDE RECORDS SUMMARY | 2024-04-29 20:15 | XMS_ITS | Encounter Summary ---
Author Organization [facility] Address [address] [place] [address] Phone Care Team Providers Care Swatch Paster Name Role Phone Kumar CARRILLO MD, Cash Howard Unavailable [phone] Bhupinder Tobias MD Primary Care Provider [phone] Jorge Aguiar MD Unavailable [phone] Khoa Arias MD Unavailable [phone] Encounter Details Date Type Department Care Team (Late st Contact Info) Description 02/20/2023 Telephone [facility] ([facility]) - [facility] Minimally Invasive Surgery [address] [facility] Advanced Medicine 12th Floor, [place] [address] Gil Ignacio RMA Social History [...] on file Legal Sex Female 9:24 PM 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 Left voice message for Zully at [employer] [phone] to see if they can dulce her in sooner. Waiting for response. Receive a call from [employer] they can dulce her in end of [...] on filedocumented in this encounter Care Teams Swatch Paster Relationship Specialty Start Date End Date Bhupinder Tobias MD [address] [place] [address] PCP - General Internal Medicine 06/03/20 Cash Heath III, MD [address] [place] [address] Rheumatology 04/12/17 Jorge Aguiar MD [address] [place] [address] Consulting Physician Urology 11/10/20 Khoa Arias MD [address] [place] [address] Referring Physician Gastroenterology 03/20/21 documented as of this encounter
--- OUTSIDE RECORDS SUMMARY | 2024-04-29 20:15 | XMS_ITS | Encounter Summary ---
Author Organization [facility] Address [address] [place] [address] Care Team Providers Care Director Special Education Name Role Phone Unavailable Primary Care Provider [...] Diagnoses [facility] [address], [address] [address] Referral ID Status Reason Start Date Expiration Date Visits Re quested Visits Authorized [id number] 1 1 Encounter Details Date Type Department Care Team (Late st Contact Info) Description 11/16/2013 2:10 PM CDT Office Visit [facility] [address], [facility] [address] [place] [address] William Cuellar MD NO ADDRESS [...] your doctor if you can take an pvcy-eoo-gwvxcrl medicine. ?? Keep your bandage clean and [...] Where can you learn more? Go to [employer], choose I Want To... and then choose Search Medical Information. Enter D633 in the search box to learn more about Skin Abscess: After Your Visit. Current as of: July 01, 2013 Content Version: 10.1 ?? 6510-1118 [employer]. Care instructions adapted under license by [employer]. [employer] disclaims any warranty or liability for your use of this information. This information is not intended to represent the ethical and quaker beliefs of [facility]. This care instruction is for use with your licensed healthcare professional. If you have questions about a medical condition or this instruction, always ask your healthcare professional. [employer] disclaims any warranty or liability for your use of this information. documented in this encounter Plan of Treatment Not on file documented as of this encounter Visit Diagnoses Diagnosis Migraine headache- Primary Migraine, unspecified, without mention of intractable migraine without mention of status migrainosus Nausea Nausea alone documented in this encounter
--- OUTSIDE RECORDS SUMMARY | 2024-04-29 20:15 | XMS_ITS | Encounter Summary ---
Author Organization [facility] Address [address] [place] [address] Care Team Providers Care Solutions Architect Name Role Phone Isaiah Quiros MD Primary Care Provider [phone] Encounter Details Date Type Department Care Team (Late st Contact Info) Description 05/11/2019 Abstract [facility] Gastroenterology [place] A [address] [facility] [address] [place] [address] Alex Mahajan MD [address] [facility] [address] [place] [address] Social History Tobacco Use Types [...] on filedocumented in this encounter Care Teams Solutions Architect Relationship Specialty Start Date End Date Isaiah Quiros MD [address] [phone] PCP - General Internal Medicine 04/16/18 documented as of this encounter
--- OUTSIDE RECORDS SUMMARY | 2024-04-29 20:15 | XMS_ITS | Encounter Summary ---
Author Organization [facility] Address [address] [place] [address] Care Team Providers Care Chief Meter Reader Name Role Phone Isaiah Quiros MD Primary Care Provider Reason for Visit * Reason Comments Follow Up Encounter Details Date Type Department Care Team (Latest Contact Info) Description 04/01/2019 10:30 AM FRUIT INSPECTOR Office Visit [facility] Gastroenterology [place] A [address] [facility] [address] [place] [address] Alex Mahajan MD [address] [facility] [address] [place] [address] 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 syndrome with both [...] Comments Blood Pressure 131/87 04/01/2019 10:31 AM FRUIT INSPECTOR Pulse 101 04/01/2019 10:31 AM FRUIT INSPECTOR Temperature - - Respiratory Rate - - Oxygen Saturation - - Inhaled Oxygen Concentration - - Weight 90.5 kg (199 lb 9.6 oz) 04/01/2019 10:31 AM FRUIT INSPECTOR Height 170.7 cm (5' 7.2 ) 04/01/2019 10:31 AM CS T Body Mass Index 31.08 04/01/2019 10:31 AM FRUIT INSPECTOR documented in this encounter Progress Notes * [...] tablet, Take 300 mg by mouth daily deli/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 pregabalin (LYRICA) [...] COUNSELING She is not a tobacco user. T INSPECTOR documented in this encounter Plan of Treatment Not on file documented as of this encounter Visit Diagnoses Diagnosis 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 syndrome with both constipation and diarrhea- Primary documented in this encounter Care Teams Chief Meter Reader Relationship Specialty Start Date End Date Isaiah Quiros MD [address] [place] [id number] PCP - General Internal Medicine 04/16/18 documented as of this encounter
--- OUTSIDE RECORDS SUMMARY | 2024-04-29 20:15 | XMS_ITS | Encounter Summary ---
Author Organization [facility] Address [address] [place] [address] Care Team Providers Care Lounge Car Attendant Name Role Phone Isaiah Quiros MD Primary Care Provider [phone] Reason for Visit * Reason Comments Follow Up ab pain, blood in st ool Encounter Details Date Type Department Care Team (Latest Contact Info) Description 07/23/2018 11:30 AM CDT Office Visit [facility] Gastroenterology [place] A [address] [facility] [address] [place] [address] Alex Mahajan MD [address] [facility] [address] [place] [address] 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 syndrome with both [...] Body Mass Index 30.89 04/16/2018 7:51 AM REAL ESTATE APPRAISER SUPERVISOR documented in this encounter Progress Notes * [...] scan and colonoscopy which were performed at [facility], I do not have those records for [...] tablet, Take 300 mg by mouth daily heat treat puller., Disp: , Rfl: ??? pregabalin (LYRICA) 100 [...] records including colonoscopy, CT scan results from [facility] during her recent admission there in April [...] - 100 U/L 07/23/2018 2:05 PM CDT [facility] Blood Venipuncture / Unknown 07/23/2018 12:52 PM CDT 07/23/2018 1:14 PM CDT Alex Mahajan MD CHEMISTRY [facility]# [id number] [address] [facility] [place] [address] * (ABNORMAL) LIPASE (07/23/2018 12:52 PM CDT) LIPASE 116(H) 13 - 60 U/L 07/23/2018 2:05 PM CDT [facility] Blood Venipuncture / Unknown 07/23/2018 12:52 PM CDT 07/23/2018 1:14 PM CDT Alex Mahajan MD CHEMISTRY ORDERA [facility] - [facility]# [id number] [address] [place] [address] * (ABNORMAL) CBC WITHOUT DIFFERENTIAL (07/23/2018 12:52 PM CDT) WBC 6.9 4.0 - 9.8 K/uL 07/23/2018 1:23 PM CDT [employer] LABORATORY SERVICES - [facility] RBC 4.85 3.90 - 4.90 M/uL 07/23/2018 1:23 PM CDT [employer] [facility]ATORY [facility] - [facility] HEMOGLOBIN 11.7(L) 11.8 - 14.8 g/dL 07/23/2018 1:23 PM CDT [facility] - [facility] HEMATOCRIT 39.0 35.5 - 44.0 % 07/23/2018 1:23 PM CDT [employer] [facility]ORY [facility] - [facility] MCV 80.4(L) 82.0 - 99.0 fL 07/23/2018 1:23 PM CDT [employer] [facility] - [facility] MCH 24.1(L) 27.2 - 32.6 pg 07/23/2018 1:23 PM CDT [employer] [facility] SERVICES - [facility] MCHC 30.0(L) 31.5 - 35.5 g/dL 07/23/2018 1:23 PM CDT [facility] - [facility] PLATELETS 405(H) 140 - 350 K/uL 07/23/2018 1:23 PM CDT [employer] [facility]ORY SERVICES - [facility] MPV 9.1(L) 9.3 - 12.4 fL 07/23/2018 1:23 PM CDT [employer] LABORATORY SERVICES - [facility] RDW 15.9(H) 11.5 - 14.5 % 07/23/2018 1:23 PM CDT [employer] [facility]ATORY SERVICES - [facility] RDW-STDEV 46.5 37.1 - 48.7 fL 07/23/2018 1:23 PM CDT [employer] [facility]ORY [facility] - [facility] Blood Venipuncture / Unknown 07/23/2018 12:52 PM CDT 07/23/2018 1:15 PM CDT Alex Mahajan MD HEMATOLOGY ORDER BOB Performing Organization Address City/State/[facility] Co de Phone Number [facility]# [id number] [address] [place] [address] documented in this encounter Visit Diagnoses Diagnosis 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 syndrome with both constipation and diarrhea- Primary Intermittent generalized abdominal pain Black stool Nonspecific abnormal finding in stool contents documented in this encounter Care Teams Lounge Car Attendant Relationship Specialty Start Date End Date Isaiah Quiros MD [address] [place] [phone] PCP - General Internal Medicine 04/16/18 documented as of this encounter
--- OUTSIDE RECORDS SUMMARY | 2024-04-29 20:15 | XMS_ITS | Encounter Summary ---
Author Organization [facility] Address [address] [place] [address] Care Team Providers Care Broke Handler Name Role Phone Isaiah Quiros MD Primary Care Provider [phone] Reason for Visit * Reason Onset Date Comments Medication Refill Medication Refill 05/15/2019 Encounter Details Date Type Department Care Team (Late st Contact Info) Description 11/25/2018 Refill [facility] Gastroenterology [place] A [address] [facility] [address] [place] [address] Alex Mahajan MD [address] [facility] [address] [place] [address] Intermittent generalized abdominal pain Social [...] pain documented in this encounter Care Teams Broke Handler Relationship Specialty Start Date End Date Isaiah Quiros MD [address] [place] [phone] PCP - General Internal Medicine 04/16/18 documented as of this encounter
--- OUTSIDE RECORDS SUMMARY | 2024-04-29 20:15 | XMS_ITS | Encounter Summary ---
Author Organization [facility] Address [address] [place] [address] Phone Care Team Providers Care Complaint Evaluation Supervisor Name Role Phone Kumar CARRILLO MD, Cash Howard Unavailable [phone] Bhupinder Tobias MD Primary Care Provider [phone] Jorge Aguiar MD Unavailable [phone] Khoa Arias MD Unavailable [phone] Encounter Details Date Type Department Care Team (Late st Contact Info) Description 02/22/2023 Telephone [facility] ([facility]) - [facility] Minimally Invasive Surgery [facility] Advanced Medicine 12th Floor, [place] [address] Sera Bearden RMSacihn Social History Tobacco Use Types Packs/Day Years [...] on file Legal Sex Female 9:24 PM PROCESSING LEAD Gender Identity Female 08/14/2022 11:32 AM CDT Sexual Orientation Straight 02/13/2023 7: 01 AM CDT documented as of this encounter Miscellaneous Notes * Telephone Encounter - Sera Bearden RMA - 02/22/2023 1:28 PM CDT Date: 02/22/2023 Reason for Call: Schedule manometry/pH testing Patient Provider: Eyad Servin M.D., Ph.D. Medical/Surgical Information: Outcome/Plan: Called pt [...] on filedocumented in this encounter Care Teams Complaint Evaluation Supervisor Relationship Specialty Start Date End Date Bhupinder Tobias MD [address] [facility] [address] [place] [address] PCP - General Internal Medicine 06/03/20 Cash Heath III, MD [address] [facility] [address] [place] [address] Rheumatology 04/12/17 Jorge Aguiar MD [address] [place] [address] Consulting Physician Urology 11/10/20 Khoa Arias MD [address] [place] [address] Referring Physician Gastroenterology 03/20/21 documented as of this encounter
--- OUTSIDE RECORDS SUMMARY | 2024-04-29 20:15 | XMS_ITS | Encounter Summary ---
Author Organization [facility] Address [address] [place] [address] Care Team Providers Care Timber Selector Name Role Phone Isaiah Quiros MD Primary Care Provider [phone] Reason for Visit * Reason Comments Medication Refill Encounter Details Date Type Department Care Team (Late st Contact Info) Description 08/02/2019 Refill [facility] Gastroenterology [place] A [address] [facility] [address] [place] [address] Alex Mahajan MD [address] [facility] [address] [place] [address] Intermittent generalized abdominal pain Social [...] pain documented in this encounter Care Teams Timber Selector Relationship Specialty Start Date End Date Isaiah Quiros MD [address] [place] [address] PCP - General Internal Medicine 04/16/18 documented as of this encounter
--- OUTSIDE RECORDS SUMMARY | 2024-04-29 20:15 | XMS_ITS | Encounter Summary ---
Author Organization [facility] Healthcare Address [address] [place] [address] Care Team Providers Care Academic Guidance Specialist Name Role Phone Kumar CARRILLO MD, Cash Howard Unavailable [phone] Bhupinder Tobias MD Primary Care Provider [phone] Jorge Aguiar MD Unavailable Khoa Arias MD Unavailable [phone] Reason for Visit * Reason Comments Shortness of Breath Encounter Details Date Type Department Care Team (Late st Contact Info) Description 01/13/2023 1:58 PM CDT - 01/13/2023 8:35 PM CDT Emergency [facility] Emergency Department [address] [place] [address] Kelvin Marquez MD [address] [place] [address] Debbie Jordan MD [address] [place] [address] Aspiration pneumonia due to gastric secretions, unspecified [...] file Legal Sex Female 9:24 PM DIRECTOR MEDICAL AFFAIRS Gender Identity Female 08/14/2022 11:32 AM CDT [...] sent through Care Everywhere. * Adult, Pneumonia (Burmese) documented in this encounter Medications at Time [...] Medical History: Diagnosis Date Autoimmune disease (CMS/HCC) ([facility]) Rheumatoid Arthritis Diverticulitis Meredith-Danlos syndrome Hemorrhoid IBS (irritable bowel syndrome) Kidney stone Menstrual problem irregular and heavy Migraine Peptic ulceration RA (rheumatoid arthritis) ([facility]) Past Surgical History: Procedure Laterality Date SECTION [...] - Neuro: A&Ox3. Moving all four extremities. [facility] Medical Decision Making 47-year-old female with [...] HCG, ur, POC Negative Negative Lot Number [id number] QC Backgroud Clear Acceptable QC Control Line Acceptable Urine 01/13/2023 5:44 PM CDT Loyda Jaquez MD POINT OF CARE TE ST ORDERABLES Final Result * (ABNORMAL) Urinalysis, microscopic only (01/13/2023 5:37 PM CDT) WBC, ur 0-5 0 - 5 /HPF [facility] RBC, ur 21-50(A) 0 - 2 /HPF [facility] Epithelial cells, squamous, ur 1-5 0 - 5 /HPF [facility] Mucous, ur Present(A) [facility] Culture Reflex Comment Reflex conditions for urine culture (WBC >10) not met. [facility] Urine, bladder 01/13/2023 5: 37 PM CDT 01/13/2023 5:49 PM CDT Loyda Jaquez MD LAB URINE ORDERA BLES Final Result [facility] One [facility] [place] [address] * (ABNORMAL) Urinalysis reflex to microscopic and culture Urine, bladder (01/13/2023 5:37 PM CDT) Pathologist [facility] Emergency Department Color, ur Yellow Yellow [facility] Clarity, ur Clear Clear [facility] Specific gravity, ur 1.042(H) 1.003 - 1.030 [facility] pH, urine 7.0 [facility] Protein, ur ql 1+(A) Negative [facility] Glucose, ur ql Negative Negative [facility] Ketones, ur Negative Negative [facility] Bilirubin, ur Negative Negative [facility] Blood, ur 1+(A) Negative [facility] Urobilinogen, ur 2.0(A) <2.0 mg/dL [facility] Nitrite, ur Negative Negative [facility] Leukocyte esterase, ur Negative Negative [facility] UA reflex comment Reflex to microscopic UA will be performed. [facility] Urine, bladder 01/13/2023 5: 37 PM CDT [...] tendency for uric acid stone formation. Source: [employer]. Last revised 05-02-2017 Loyda Jaquez MD LAB MICROBIOLOGY - GENERAL ORDERABLES Final Result [facility] One [facility] [place] [address] * Respiratory pathogen panel Nasopharyngeal (01/13/2023 5:37 PM CDT) [facility] Influenza A RNA Not Detected Not Detected [facility] Influenza B RNA Not Detected Not Detected [facility] RSV RNA Not Detected Not Detected [facility] COVID-19 RNA Not Detected Not Detected [facility] Coronavirus 229E RNA Not Detected Not Detected [facility] Coronavirus HKU1 RNA Not Detected Not Detected [facility] Coronavirus NL63 RNA Not Detected Not Detected [facility] Coronavirus OC43 RNA Not Detected Not Detected [facility] Adenovirus DNA Not Detected Not Detected [facility] Metapneumovirus RNA Not Detected Not Detected [facility] Rhinovirus/Enterov irus RNA Not Detected Not Detected [facility] Parainfluenza 1 RNA Not Detected Not Detected [facility] Parainfluenza 2 RNA Not Detected Not Detected [facility] Parainfluenza 3 RNA Not Detected Not Detected [facility] Parainfluenza 4 RNA Not Detected Not Detected [facility] B. pertussis DNA Not Detected Not Detected [facility] B. parapertussis DNA Not Detected Not Detected [facility] C. pneumoniae DNA Not Detected Not Detected [facility] M. pneumoniae DNA Not Detected Not Detected [facility] Nasopharyngeal 01/13/2023 5: 37 PM CDT 01/13/2023 5:50 PM CDT Narrative [facility] - 01/13/2023 6:44 PM CDT Is the Patient experiencing symptoms consistent with COVID?->Yes Date of Symptom Onset->01/13/23 Reason for testing?->Symptomatic Surveillance testing for transplant patient?->No ??Interpretive Data The Ceregene FilmArray Respiratory Panel (RP2.1) assay is a [...] assay has FDA clearance for testing of SOFTWARE REQUIREMENTS ENGINEER swabs. ??The performance of additional specimen types has been assessed by the performing laboratory. ??The performance characteristics of this assay have been determined by [facility] Molecular Infectious Disease Laboratory. Current interpretive data was last revised on 22. Loyda Jaquez MD LAB MICROBIOLOGY - GENERAL ORDERABLES Final Result [facility] One [facility] [place] [address] * CT Chest PE (CTA) Abdomen Pelvis [...] the 3-D workstation and sent to the [employer] archival system. ?? COMPARISON: CT abdomen pelvis [...] POC 0.9 0.6 - 1.1 mg/dL [facility] Blood 01/13/2023 3:37 PM CDT 01/13/2023 3:37 PM CDT Debbie Jordan MD LAB POCT ORDERABLES - DEVIC E Final Result Performing Organization Address [facility] Co de Phone Number [facility] Department [place] [address] * Lipase (01/13/2023 3:14 PM CDT) Pathologist [facility] Emergency Department Lipase 59 10 - 99 Units/L [facility] Blood 01/13/2023 3:14 PM CDT 01/13/2023 3:28 PM CDT Debbie Jordan MD LAB BLOOD ORDERABLES Final Result Performing Organization Address [facility] de Phone Number [facility] Department [place] [address] * (ABNORMAL) eGFR (01/13/2023 3:14 PM CDT) Pathologist [facility] Emergency Department eGFR 69(L) 90 - 130 mL/min/1. 73 m2 [facility] Comment: Interpretive Data Reference Interval Normal [...] MD LAB BLOOD ORDERA BLES Final Result [facility] One [facility] [place] [address] * (ABNORMAL) Differential, auto (01/13/2023 3:14 PM CDT) Neutrophil abs 8.1(H) 1.7 - 6.5 K/cumm [facility] Imm gran abs 0.1 0.0 - 0.1 K/cumm [facility] Lymphocyte abs 1.4 0.8 - 3.3 K/cumm [facility] Monocyte abs 0.3 0.2 - 0.8 K/cumm [facility] Eosinophil abs 0.2 0.0 - 0.5 K/cumm [facility] Basophil abs 0.1 0.0 - 0.1 K/cumm [facility] Neutrophil pct 79.5 % [facility] Comment: Interpretive Data Percent cell count reference ranges are not reported, since discordance with absolute values may lead to misinterpretation of CBC data. Current Interpretive Data was last revised on 2017. Imm gran pct 0.6 % [facility] Comment: Interpretive Data Percent cell count reference ranges are not reported, since discordance with absolute values may lead to misinterpretation of CBC data. Current Interpretive Data was last revised on 2017. Lymphocyte pct 14.1 % [facility] Comment: Interpretive Data Percent cell count reference ranges are not reported, since discordance with absolute values may lead to misinterpretation of CBC data. Current Interpretive Data was last revised on 2017. Monocyte pct 3.3 % [facility] Comment: Interpretive Data Percent cell count reference ranges are not reported, since discordance with absolute values may lead to misinterpretation of CBC data. Current Interpretive Data was last revised on 2017. Eosinophil pct 2.0 % [facility] Comment: Interpretive Data Percent cell count reference ranges are not reported, since discordance with absolute values may lead to misinterpretation of CBC data. Current Interpretive Data was last revised on 2017. Basophil pct 0.5 % [facility] Comment: Interpretive Data Percent cell count reference ranges are not reported, since discordance with absolute values may lead to misinterpretation of CBC data. Current Interpretive Data was last revised on 2017. Blood 01/13/2023 3:14 PM CDT 01/13/2023 3:20 PM CDT Loyda Jaquez MD LAB BLOOD ORDERA BLES Final Result Performing Organization Address [facility] Co de Phone Number [facility] [place] [address] * TSH reflex to free T4 (01/13/2023 3:14 PM CDT) TSH 1.14 0.30 - 4.20 mcIUnit/mL [facility] Blood 01/13/2023 3:14 PM CDT 01/13/2023 3:20 PM CDT Loyda Jaquez MD LAB BLOOD ORDERA BLES Final Result Performing Organization Address City/[facility] Co de Phone Number [facility] Department [place] [address] * Troponin I high-sensitivity series (baseline, 2hr, 4hr, 6hr) (01/13/2023 3:14 PM CDT) Trop I hs <4 <=17 ng/L [facility] Comment: Interpretive Data For further hscTnI resources including the diagnostic algorithm and an aid in interpretation, copy and paste this link: [email or web address].[email or web address]/show/[email or web address] Current Interpretive Data last revised 2019. Blood 01/13/2023 3:14 PM CDT 01/13/2023 3:20 PM CDT us Loyda Jaquez MD LAB BLOOD ORDERA BLES Final Result [facility] One [facility] [place] [address] * Pro B-type natriuretic peptide (01/13/2023 3:14 [...] MD LAB BLOOD ORDERA BLES Final Result [facility] One [facility] [place] [address] * Comprehensive metabolic panel (01/13/2023 3:14 PM CDT) Pathologist [facility] Emergency Department Sodium 139 135 - 145 mmol/L [facility] Potassium, pl 3.9 3.3 - 4.9 mmol/L [facility] Chloride 105 97 - 110 mmol/L [facility] CO2 22 22 - 32 mmol/L [facility] Anion gap 12 2 - 15 mmol/L [facility] BUN 15 6 - 25 mg/dL [facility] Creatinine 1.00 0.60 - 1.10 mg/dL [facility] Glucose 91 70 - 199 mg/dL [facility] Comment: Interpretive Data Fasting glucose [...] 2022. Calcium 9.0 8.5 - 10.3 mg/dL [facility] Bilirubin, total 0.3 0.1 - 1.2 mg/dL [facility] Protein, pl 7.4 6.5 - 8.5 g/dL [facility] Albumin 3.7 3.5 - 5.0 g/dL [facility] Alk phos 82 40 - 130 Units/L [facility] ALT 23 7 - 45 Units/L [facility] AST 19 10 - 45 Units/L [facility] Blood 01/13/2023 3:14 PM CDT 01/13/2023 3:20 PM CDT Loyda Jaquez MD LAB BLOOD ORDERA BLES Final Result [facility] One [facility] [place] [address] * (ABNORMAL) CBC with auto differential (01/13/2023 3:14 PM CDT) WBC 10.2(H) 3.8 - 9.9 K/cumm [facility] Hgb 12.0 11.9 - 15.5 g/dL [facility] Hct 38.2 35.6 - 45.5 % [facility] Plt 288 150 - 400 K/cumm [facility] MPV 8.8(L) 9.1 - 12.3 fL [facility] RBC 4.41 3.90 - 5.20 M/cumm [facility] MCV 86.6 81.3 - 96.4 fL [facility] MCH 27.2 27.1 - 33.3 pg [facility] MCHC 31.4(L) 32.3 - 35.7 g/dL [facility] RDW CV 15.4(H) 11.1 - 14.9 % [facility] RDW SD 48.5(H) 35.7 - 48.1 fL [facility] NRBC abs 0.00 0.00 - 0.01 K/cumm [facility] Blood 01/13/2023 3:14 PM CDT 01/13/2023 3:20 PM CDT us Loyda Jaquez MD LAB BLOOD ORDERA BLES Final Result Performing Organization Address [facility] Co de Phone Number [facility] One [facility] [place] [address] * ECG 12-LEAD (01/13/2023 11:58 AM CDT) Narrative [facility] - 01/13/2023 11:58 AM CDT Kelvin Marquez [...] ECG ORDERABLES Final Result Performing Organization Address City/[facility]/ZIP Co de Phone Number [facility] documented in this encounter Visit Diagnoses Diagnosis [...] Sabina Paula RN) al & mag hydroxide kporskthqrq-vrnoskgxr-qfyxntrrdw oral suspension mixture (COMPLETED) 45 mL, oral, [...] documented as of this encounter Care Teams Academic Guidance Specialist Relationship Specialty Start Date End Date Bhupinder Tobias MD [address] [place] [address] PCP - General Internal Medicine 06/03/20 Cash Heath III, MD [address] [facility] [address] [place] [address] Rheumatology 04/12/17 Jorge Aguiar MD [address] [facility] [address] [place], [place] [address] Consulting Physician Urology 11/10/20 Khoa Arias MD [address] [facility] [address] [place] [address] Referring Physician Gastroenterology 03/20/21 documented as of this encounter
--- OUTSIDE RECORDS SUMMARY | 2024-04-29 20:15 | XMS_ITS | Encounter Summary ---
Author Organization [facility] Address [address] [place] [address] Care Team Providers Care Child & Adolescent Psychiatrist Name Role Phone Isaiah Quiros MD Primary Care Provider [phone] Reason for Visit * Reason Comments Medication Refill Encounter Details Date Type Department Care Team (Late st Contact Info) Description 04/30/2019 Refill [facility] Gastroenterology [place] [address] [place] [address] Alex Mahajan MD [address] [facility] [address] [place] [address] Intermittent generalized abdominal pain Social [...] pain documented in this encounter Care Teams Child & Adolescent Psychiatrist Relationship Specialty Start Date End Date Isaiah Quiros MD [address] [place] [address] PCP - General Internal Medicine 04/16/18 documented as of this encounter
--- OUTSIDE RECORDS SUMMARY | 2024-04-29 20:15 | XMS_ITS | Encounter Summary ---
Author Organization [facility] Address [address] [place] [address] Care Team Providers Care Air Tucker Name Role Phone Isaiah Quiros MD Primary Care Provider [phone] Reason for Visit * Reason Comments Medication Refill Encounter Details Date Type Department Care Team (Late st Contact Info) Description 09/08/2018 Refill [facility] Gastroenterology [place] [address] [facility] [address] [facility] [place] [address] Alex Mahajan MD [address] [facility] [address] [place] [address] Intermittent generalized abdominal pain Social [...] pain documented in this encounter Care Teams Air Tucker Relationship Specialty Start Date End Date Isaiah Quiros MD [address] [place] [address] PCP - General Internal Medicine 04/16/18 documented as of this encounter
--- OUTSIDE RECORDS SUMMARY | 2024-04-29 20:15 | XMS_ITS | Encounter Summary ---
Author Organization [facility] Address [address] [place] [address] Phone Care Team Providers Care Six Color Press Operator Name Role Phone Kumar CARRILLO MD, Cash Howard Unavailable [phone] Bhupinder Tobias MD Primary Care Provider [phone] Jorge Aguiar MD Unavailable [phone] hKoa Arias MD Unavailable [phone] Reason for Visit * Consultation (Routine) - Closed Specialty Diagnoses / Procedures Referred By Contac t Referred To Contact Minimally Invasive Surgery Diagnoses Gastroesophageal reflux disease with esophagitis, unspecified whether hemorrhage Pietro Harris MD [address] [facility] [address] [place] [address] Phone: tel: fax: Eyad Servin MD PhD [address] [place] [address] Phone: tel: fax: Referral ID Status Reason Start Date Expiration Date V isits Requested Visits Authorized [id number] Closed Specialty Services Required 12/06/2022 01/05/2024 12 12 Encounter Details Date Type Department Care Team ([facility] Contact Info) Description 02/13/2023 1:00 PM CDT Office Visit [facility] ([facility] Minimally Invasive Surgery [address] [facility] Advanced Medicine [address]th Floor, [place] [address] Eyad Servni MD PhD [address] [place] [address] Hiatal hernia with GERD (Primary Dx); Gastroesophageal [...] on file Legal Sex Female 9:24 PM ANATOMIC PATHOLOGIST Gender Identity Female 08/14/2022 11:32 AM CDT [...] NAME: Madalyn Smith : 1975 DOS: 02/13/2023 #[id number] PRIMARY CARE PHYSICIAN: Bhupinder Tobias MD REFERRING [...] a past medical history of Autoimmune disease ([facility]) ([facility]) (Rheumatoid Arthritis), Diverticulitis, Meredith-Danlos syndrome, Hemorrhoid, IBS (irritable bowel syndrome), Kidney stone, Menstrual problem (irregular and heavy), Migraine, Peptic ulceration, and RA (rheumatoid arthritis) ([facility]). PAST SURGICAL HISTORY: Past Surgical History: [...] convenience. Sincerely, Eyad Servin MD, PhD, FACS manufacturing supervisor Minimally Invasive Foregut and General Surgery Director, Robotic Surgery, [facility] HealthCare Director, [facility] ([place]) Director, [employer] [facility] [employer] [facility] [place], [place] Office phone: [phone] I have seen and examined the patient [...] 02/13/2023 documented in this encounter Care Teams Six Color Press Operator Relationship Specialty Start Date End Date Bhupinder Tobias MD [address] [place] [address] PCP - General Internal Medicine 06/03/20 Cash Heath III, MD [address] [facility] [address] [place] [address] Rheumatology 04/12/17 Jorge Aguiar MD [address] [place] [address] Consulting Physician Urology 11/10/20 Khoa Arias MD [address] [facility] [address] [place] [address] Referring Physician Gastroenterology 03/20/21 documented as of this encounter
--- OUTSIDE RECORDS SUMMARY | 2024-04-29 20:15 | XMS_ITS | Referral Summary ---
Author Organization [id number] Address [address] [place] [address] Phone Care Team Providers Care Ballpoint Pen Cartridge Tester Name Role Phone Kumar CARRILLO MD, John J. Unavailable [phone] Bhupinder Tobias MD Primary Care Provider [phone] Jorge Aguiar MD Unavailable [phone] Khoa Arias MD Unavailable [phone] Allergies No known active allergies Medications SUMAtriptan [...] (08/30/2021): Added automatically from request for surgery [id number] Abdominal pain 03/31/2021 Assessment & Plan (06/28/2021 10:08 AM SELF RISING FLOUR MIXER): Recently dx with mild pancreatitis. Needs lipase/amylase rechecked. Still has some upper abd pain. Advised pt to f/u with GI also. Assessment & Plan (06/19/2021 8:52 AM SELF RISING FLOUR MIXER): Had abd pain early this month, check amyl/lip and ua. Pain has resolved. Assessment & Plan (05/05/2021 10:13 PM SELF RISING FLOUR MIXER): Having abd pain, bloating, constipation. On meds for IBS and also using suppositories to have BM. Incidental findings of mesenteric fat stranding (adenitis or panniculitis) on abd CT. Awaiting further eval by Dr. Arias. Assessment & Plan (03/31/2021 8:44 AM SELF RISING FLOUR MIXER): Elevated lipase. Imuran stopped. Pt advised to [...] 04/23/2019 Assessment & Plan (03/24/2020 7:29 AM SELF RISING FLOUR MIXER): Normal serum immunoglobulins. Assessment & Plan (01/21/2020 [...] immunoglobulins. Assessment & Plan (04/23/2019 1:46 PM SELF RISING FLOUR MIXER): Check serum immunoglobulins. Osteoporosis without current pathological fractu re 09/18/2018 Assessment & Plan (08/10/2021 8:09 AM CDT): bds checked by pcp in past, is taking ca and vit d and pcp checked vit D and PTH per pt was wnl. Her pcp started her on alendronate 70mg po qweek. Taking ca + vit d 1200mg qd. Assessment & Plan (06/15/2021 10:46 AM SELF RISING FLOUR MIXER): bds checked by pcp in past, is taking ca and vit d and pcp checked vit D and PTH per pt was wnl. Her pcp started her on alendronate 70mg po qweek. Taking ca + vit d 1200mg qd. Assessment & Plan (06/09/2021 8:30 AM SELF RISING FLOUR MIXER): bds checked by pcp in past, is taking ca and vit d and pcp checked vit D and PTH per pt was wnl. Her pcp started her on alendronate 70mg po qweek. Taking ca + vit d 1200mg qd. Assessment & Plan (05/04/2021 8:19 AM SELF RISING FLOUR MIXER): bds checked by pcp in past, is [...] qd. Assessment & Plan (06/03/2020 7:38 AM SELF RISING FLOUR MIXER): bds checked by pcp in past, is taking ca and vit d and pcp checked vit D and PTH per pt was wnl. Her pcp started her on alendronate 70mg po qweek. Taking ca + vit d 1200mg qd. Assessment & Plan (03/25/2020 8:34 AM SELF RISING FLOUR MIXER): bds checked by pcp in past, is taking ca and vit d and pcp checked vit D and PTH per pt was wnl. Her pcp started her on alendronate 70mg po qweek. Taking ca + vit d 1200mg qd. Assessment & Plan (03/24/2020 7:29 AM SELF RISING FLOUR MIXER): bds checked by pcp in past, is [...] qd. Assessment & Plan (04/20/2019 4:56 PM SELF RISING FLOUR MIXER): bds checked by pcp in past, is [...] pcp. Assessment & Plan (06/03/2020 7:37 AM SELF RISING FLOUR MIXER): Was advised in past to get chest CT to r/o aortic aneurysm, to discuss with pcp. Assessment & Plan (03/25/2020 8:33 AM SELF RISING FLOUR MIXER): Was advised in past to get chest CT to r/o aortic aneurysm, to discuss with pcp. Assessment & Plan (03/24/2020 7:29 AM SELF RISING FLOUR MIXER): Was advised in past to get chest [...] pcp. Assessment & Plan (04/20/2019 4:57 PM SELF RISING FLOUR MIXER): Advised to get chest CT to r/o aortic aneurysm, to discuss with pcp. Assessment & Plan (10/31/2018 7:38 AM CDT): Advised to get chest CT to r/o aortic aneurysm, to discuss with pcp. Encounter for long-term (current) use of medicat ions 01/31/2017 Assessment & Plan (05/28/2022 8:07 AM SELF RISING FLOUR MIXER): Quant gold neg 12/2019 Hep B and [...] showed osteoporosis [facility] 08/2019---[facility] labs reveal positive anti-LACQUER COATER antibody which is likely a false positive due to negative ASHLEY. Her father had psoriasis, pt changed from ra to PsA on 03/25/2020. ?? Assessment & Plan (02/26/2022 8:16 AM SELF RISING FLOUR MIXER): Quant gold neg 12/2019 Hep B and [...] showed osteoporosis [facility] 08/2019---[facility] labs reveal positive anti-LACQUER COATER antibody which is likely a false positive [...] showed osteoporosis [facility] 08/2019---[facility] reveal positive anti-LACQUER COATER antibody which is likely a false positive [...] showed osteoporosis [facility] 08/2019---[facility] reveal positive anti-LACQUER COATER antibody which is likely a false positive [...] showed osteoporosis [facility] 08/2019---[facility] labs reveal positive anti-LACQUER COATER antibody which is likely a false positive [...] showed osteoporosis [facility] 08/2019---[facility] labs reveal positive anti-LACQUER COATER antibody which is likely a false positive due to negative ASHLEY. Her father had psoriasis, pt changed from ra to PsA on 03/25/2020. ?? Assessment & Plan (06/28/2021 8:44 AM SELF RISING FLOUR MIXER): Quant gold neg 12/2019 Hep B and [...] showed osteoporosis [facility] 08/2019---[facility] labs reveal positive anti-LACQUER COATER antibody which is likely a false positive due to negative ASHLEY. Her father had psoriasis, pt changed from ra to PsA on 03/25/2020. ?? Assessment & Plan (06/15/2021 10:44 AM SELF RISING FLOUR MIXER): Quant gold neg 12/2019 Hep B and [...] showed osteoporosis [facility] 08/2019---[facility] labs reveal positive anti-LACQUER COATER antibody which is likely a false positive due to negative ASHLEY. Her father had psoriasis, pt changed from ra to PsA on 03/25/2020. ?? Assessment & Plan (06/09/2021 10:15 AM SELF RISING FLOUR MIXER): Quant gold neg 12/2019 Hep B and [...] showed osteoporosis [facility] 08/2019---[facility] labs reveal positive anti-LACQUER COATER antibody which is likely a false positive due to negative ASHLEY. Her father had psoriasis, pt changed from ra to PsA on 03/25/2020. ?? Assessment & Plan (06/09/2021 8:29 AM SELF RISING FLOUR MIXER): Quant gold neg 12/2019 Hep B and [...] showed osteoporosis [facility] 08/2019---[facility] labs reveal positive anti-LACQUER COATER antibody which is likely a false positive due to negative ASHLEY. Her father had psoriasis, pt changed from ra to PsA on 03/25/2020. ?? Assessment & Plan (05/04/2021 8:19 AM SELF RISING FLOUR MIXER): Quant gold neg 12/2019 Hep B and [...] showed osteoporosis [facility] 08/2019---[facility] labs reveal positive anti-LACQUER COATER antibody which is likely a false positive due to negative ASHLEY. Her father had psoriasis, pt changed from ra to PsA on 03/25/2020. ?? Assessment & Plan (03/31/2021 9:20 AM SELF RISING FLOUR MIXER): Quant gold neg 12/2019 Hep B and [...] showed osteoporosis [facility] 08/2019---[facility] labs reveal positive anti-LACQUER COATER antibody which is likely a false positive [...] showed osteoporosis [facility] 08/2019---[facility] labs reveal positive anti-LACQUER COATER antibody which is likely a false positive [...] showed osteoporosis [facility] 08/2019---[facility] labs reveal positive anti-LACQUER COATER antibody which is likely a false positive [...] showed osteoporosis [facility] 08/2019---[facility] labs reveal positive anti-LACQUER COATER antibody which is likely a false positive [...] showed osteoporosis [facility] 08/2019---[facility] labs reveal positive anti-LACQUER COATER antibody which is likely a false positive due to negative ASHLEY. Her father had psoriasis, pt changed from ra to PsA on 03/25/2020. ?? Assessment & Plan (06/03/2020 2:56 PM SELF RISING FLOUR MIXER): Quant gold neg 12/2019 Hep B and [...] showed osteoporosis [facility] 08/2019---[facility] labs reveal positive anti-LACQUER COATER antibody which is likely a false positive due to negative ASHLEY. Her father had psoriasis, pt changed from ra to PsA on 03/25/2020. ?? Assessment & Plan (03/25/2020 3:03 PM SELF RISING FLOUR MIXER): Quant gold neg 12/2019 HLA B27 negative [...] showed osteoporosis [facility] 08/2019---[facility] labs reveal positive anti-LACQUER COATER antibody which is likely a false positive due to negative ASHLEY. Her father had psoriasis, pt changed from ra to PsA on 03/25/2020. ?? Assessment & Plan (03/24/2020 7:28 AM SELF RISING FLOUR MIXER): Quant gold neg 12/2019 HLA B27 negative [...] showed osteoporosis [facility] 08/2019---[facility] labs reveal positive anti-LACQUER COATER antibody which is likely a false positive [...] showed osteoporosis [facility] 08/2019---[facility] labs reveal positive anti-LACQUER COATER antibody which is likely a false positive [...] showed osteoporosis [facility] 08/2019---[facility] labs reveal positive anti-LACQUER COATER antibody which is likely a false positive [...] showed osteoporosis [facility] 08/2019---[facility] labs reveal positive anti-LACQUER COATER antibody which is likely a false positive [...] showed osteoporosis [facility] 08/2019---[facility] labs reveal positive anti-LACQUER COATER antibody which is likely a false positive [...] showed osteoporosis [facility] 08/2019---[facility] labs reveal positive anti-LACQUER COATER antibody which is likely a false positive [...] ?? Assessment & Plan (04/20/2019 4:59 PM SELF RISING FLOUR MIXER): Quant gold neg 10/2018. TPMT nl 17 [...] 01/31/2017 Assessment & Plan (05/28/2022 8:05 AM SELF RISING FLOUR MIXER): Images from the original note were not included. Had orencia infusion 05/02/2022. Continue orencia monotherapy. Off arava due to lipase elevation. Seeing gi at [facility] now. [facility] and egd utd and nl in past year per pt. Had a nl pancreatic US recently with gi. Past serologies: [facility] panel 08/2019---labs reveal positive anti-LACQUER COATER antibody which is likely a false positive due to negative ASHLEY. ?? RF neg but has a possible family hx of psoriatic arthritis (father) so if she develops psoriasis diagnosis will change to psoriatic arthritis. Rt hand US 09/2019 showed: ??F/u 1 month. Assessment & Plan (02/26/2022 12:12 PM SELF RISING FLOUR MIXER): Images from the original note were not included. High cdai. Her orencia is scheduled tomorrow. Continue orencia monotherapy. Off arava due to lipase elevation. Seeing gi at [facility] now. [facility] and egd utd and nl in past year per pt. Had a nl pancreatic US recently with gi. She could be flaring up since her orencia is due tomorrow, overall she still feels that it is helping her joints. Past serologies: [facility] panel 08/2019---labs reveal positive anti-LACQUER COATER antibody which is likely a false positive [...] no complications or infections. Seeing gi at [facility] now for her elevated lipase. [facility] and egd utd and nl in past year per pt. If labs stable will restart low dose arava 10mg po every day. To stay off orencia until recovered from rt knee surgery. Past serologies: [facility] panel 08/2019---labs reveal positive anti-LACQUER COATER antibody which is likely a false positive [...] is scheduled tomorrow. Seeing gi at [facility] now. [facility] and egd utd and nl in past year per pt. Due to burden of dz will give her a short course of oral prednisone. Discussed risks and se of systemic steroids. Past serologies: [facility] panel 08/2019---labs reveal positive anti-LACQUER COATER antibody which is likely a false positive [...] is scheduled tomorrow. Seeing gi at [facility] now. [facility] and egd utd and nl in past year per pt. Due to burden of dz will give her a short course of oral prednisone. Discussed risks and se of systemic steroids. Past serologies: [facility] panel 08/2019---labs reveal positive anti-LACQUER COATER antibody which is likely a false positive [...] gi dr arias for her pancreatitis . [facility] and egd utd and nl in past year per pt. Seen with dr woodruff today. Past serologies: [facility] panel 08/2019---labs reveal positive anti-LACQUER COATER antibody which is likely a false positive due to negative ASHLEY. ?? RF neg but has a possible family hx of psoriatic arthritis (father) so if she develops psoriasis diagnosis will change to psoriatic arthritis. Rt hand US 09/2019 showed: ??F/u 1 month. Assessment & Plan (06/28/2021 10:22 AM SELF RISING FLOUR MIXER): Images from the original note were not [...] Past serologies: [facility] panel 08/2019---labs reveal positive anti-LACQUER COATER antibody which is likely a false positive due to negative ASHLEY. ?? RF neg but has a possible family hx of psoriatic arthritis (father) so if she develops psoriasis diagnosis will change to psoriatic arthritis. Rt hand US 09/2019 showed: ??F/u 1 month. Assessment & Plan (06/15/2021 10:46 AM SELF RISING FLOUR MIXER): Images from the original note were not [...] Past serologies: [facility] panel 08/2019---labs reveal positive anti-LACQUER COATER antibody which is likely a false positive due to negative ASHLEY. ?? RF neg but has a possible family hx of psoriatic arthritis (father) so if she develops psoriasis diagnosis will change to psoriatic arthritis. Rt hand US 09/2019 showed: ??F/u 1 month. Assessment & Plan (06/09/2021 10:16 AM SELF RISING FLOUR MIXER): Images from the original note were not [...] Past serologies: [facility] panel 08/2019---labs reveal positive anti-LACQUER COATER antibody which is likely a false positive due to negative ASHLEY. ?? RF neg but has a possible family hx of psoriatic arthritis (father) so if she develops psoriasis diagnosis will change to psoriatic arthritis. Rt hand US 09/2019 showed: ??F/u 1 month. Assessment & Plan (06/09/2021 8:29 AM SELF RISING FLOUR MIXER): Images from the original note were not [...] Past serologies: [facility] panel 08/2019---labs reveal positive anti-LACQUER COATER antibody which is likely a false positive due to negative ASHLEY. ?? RF neg but has a possible family hx of psoriatic arthritis (father) so if she develops psoriasis diagnosis will change to psoriatic arthritis. Rt hand US 09/2019 showed: ??F/u 1 month. Assessment & Plan (05/05/2021 10:11 PM SELF RISING FLOUR MIXER): Images from the original note were not [...] Past serologies: [facility] panel 08/2019---labs reveal positive anti-LACQUER COATER antibody which is likely a false positive due to negative ASHLEY. ?? RF neg but has a possible family hx of psoriatic arthritis (father) so if she develops psoriasis diagnosis will change to psoriatic arthritis. Rt hand US 09/2019 showed: ??F/u 1 month. Assessment & Plan (03/31/2021 9:24 AM SELF RISING FLOUR MIXER): Images from the original note were not [...] Past serologies: [facility] panel 08/2019---labs reveal positive anti-LACQUER COATER antibody which is likely a false positive [...] Past serologies: [facility] panel 08/2019---labs reveal positive anti-LACQUER COATER antibody which is likely a false positive [...] Past serologies: [facility] panel 08/2019---labs reveal positive anti-LACQUER COATER antibody which is likely a false positive [...] Past serologies: [facility] panel 08/2019---labs reveal positive anti-LACQUER COATER antibody which is likely a false positive [...] Past serologies: [facility] panel 08/2019---labs reveal positive anti-LACQUER COATER antibody which is likely a false positive due to negative ASHLEY. ?? RF neg but has a possible family hx of psoriatic arthritis (father) so if she develops psoriasis diagnosis will change to psoriatic arthritis. Rt hand US 09/2019 showed: ?? Assessment & Plan (06/03/2020 5:27 PM SELF RISING FLOUR MIXER): Images from the original note were not [...] Past serologies: [facility] panel 08/2019---labs reveal positive anti-LACQUER COATER antibody which is likely a false positive due to negative ASHLEY. ?? RF neg but has a possible family hx of psoriatic arthritis (father) so if she develops psoriasis diagnosis will change to psoriatic arthritis. Rt hand US 09/2019 showed: ?? Assessment & Plan (03/25/2020 3:01 PM SELF RISING FLOUR MIXER): Images from the original note were not [...] Past serologies: [facility] panel 08/2019---labs reveal positive anti-LACQUER COATER antibody which is likely a false positive due to negative ASHLEY. ?? RF neg but has a possible family hx of psoriatic arthritis (father) so if she develops psoriasis diagnosis will change to psoriatic arthritis. Rt hand US 09/2019 showed: ?? Assessment & Plan (03/24/2020 7:29 AM SELF RISING FLOUR MIXER): Images from the original note were not included. [place] ai Wants to go back to sq orencia, gave pt 1 mo of samples and will start approval. Can't come in for iv orencia, her dad is on hospice. Increase imuran to 100mg bid, check cbc/cmp in 2 weeks and f/u in 1month. Past serologies: [facility] panel 08/2019---labs reveal positive anti-LACQUER COATER antibody which is likely a false positive [...] Past serologies: [facility] panel 08/2019---labs reveal positive anti-LACQUER COATER antibody which is likely a false positive [...] Past serologies: [facility] panel 08/2019---labs reveal positive anti-LACQUER COATER antibody which is likely a false positive [...] every day. [facility] panel 08/2019---labs reveal positive anti-LACQUER COATER antibody which is likely a false positive due to negative ASHLEY. ??Otherwise labs look good. ??No evidence of a new autoimmune connective tissue disease. Cont orencia sq and imuran 100mg po qhs. [place] better on iv orencia, will change from [...] since resolved. [facility] panel 08/2019---labs reveal positive anti-LACQUER COATER antibody which is likely a false positive [...] of orencia. [facility] panel 08/2019---labs reveal positive anti-LACQUER COATER antibody which is likely a false positive [...] of orencia. [facility] panel 08/2019---labs reveal positive anti-LACQUER COATER antibody which is likely a false positive [...] ?? Assessment & Plan (04/23/2019 1:46 PM SELF RISING FLOUR MIXER): High cdai. On orencia IV but has [...] citrate. Assessment & Plan (06/03/2020 2:56 PM SELF RISING FLOUR MIXER): Multiple kidney stones for over 10 yrs, [...] on file Legal Sex Female 9:24 PM SELF RISING FLOUR MIXER Gender Identity Female 08/14/2022 11:32 AM [...] HEPATITIS C AB Routine 06/29/2015 2:43 PM SELF RISING FLOUR MIXER from Last 3 Months or Most Recently Relevant to Health Maintenance Results * ThinPrep Pap with HPV (12/24/2018 3:41 PM CDT) 12/24/2018 3:41 PM CDT 12/25/2018 8:54 AM CDT Narrative [facility] - 12/26/2018 2:53 PM CDT [facility] Department of Pathology [address] [place] [id number] Final Report with Addendum Patient Name: ??JULIAN SAUER Address: ??[address] [place] [address], ?? [place], [place] ?? Gender: ??F : ??1975 (Age: 43) Service: ??Laboratory Location: ??Lab Hospital #: ??[id number] Patient Type: ?? Ref Lab Taken: ??12/24/2018 Received: ??12/25/2018 Accessioned:: ??12/26/2018 Reported: ??12/26/2018 Physician(s): Curtis Oseguera M.D. [facility] Diagnosis: Source of Specimen: ? SCREENING IMAGED [...] determined by the Surgical Pathology Department at [facility] as part of an ongoing lead quality technician program and in compliance with federally mandated [...] characteristics determined by the Surgical Pathology Department [facility]. ??It has not been cleared or approved by the U. S. Food and Drug Administration. us Curtis Oseguera MD LAB CYTOLOGY ORDERABLES Final Result [address] [phone] * Serum Hepatitis C ab (06/29/2015 2:43 PM SELF RISING FLOUR MIXER) HCV ab Non-Reacti ve Non-Reacti ve HISTORICAL RESULTS Serum 06/29/2015 2:43 PM SELF RISING FLOUR MIXER us Miriam VALLE LAB BLOOD ORDERAB LES Final Result HISTORICAL RESULTS from Last 3 Months or Most Recently Relevant to Health Maintenance [place] [facility] Care Teams Ballpoint Pen Cartridge Tester Relationship Specialty Start Date End Date Bhupinder Tobias MD [address] [facility] [address] [place] [address] PCP - General Internal Medicine 06/03/20 Cash Woodruff III, MD [address] [facility] [address] [place] [address] Rheumatology 04/12/17 Jorge Aguiar MD [address] [facility] [address] [place] [address] Consulting Physician Urology 11/10/20 Khoa Arias MD [address] [facility] [address] [place] [address] Referring Physician Gastroenterology 03/20/21
--- OUTSIDE RECORDS SUMMARY | 2024-04-29 20:15 | XMS_ITS | Encounter Summary ---
Author Organization [facility] Address [address] [place] [address] Care Team Providers Care Last Waxer Name Role Phone Isaiah Quiros MD Primary Care Provider [phone] Reason for Visit * Reason Comments Abdominal [...] Kaylynn phillips Referred To Contact Emergency Medicine [facility] Emergency Dept [address] [place] [address] Referral ID Status Reason Start Date Expiration Date Visits Re quested Visits Authorized [id number] 1 1 Encounter Details Date Type Department Care Team (Late st Contact Info) Description 12/26/2018 8:54 PM CDT - 12/29/2018 5:37 PM CDT Emergency [facility] Medical Surgical [address] [place] [address] Binh Choudhury DO [address] [facility] [address] [place] [address] Linh Viera MD [address] [facility] [address] [place] [id number] Carlos Jordan MD [address] [place] [id number] Diffuse abdominal pain Discharge Disposition: Home or [...] MD - 12/29/2018 5:36 PM CDT .. [facility] Adult Discharge Summary Julian Sauer 43 y.o. female 1975 CSN: [id number] Date of Admission: 12/26/2018 Date of Discharge: [...] colitis + 2 polyps excised, done in [facility] in [place], requested copy of report) that was admitted [...] XL Take 300 mg by mouth daily dough cutter. Refills: 0 dicyclomine 10 mg capsule Commonly [...] Your Medications These medications were sent to [address] [facility] [address] Hours: Saturday-Saturday: 8 a.m. - 8 p.m., [...] Information Primary Emergency Contact: MARBIN SAUER Address: [address] [place] [address] Mobile Relation: Spouse Secondary Emergency Contact: CHARLI SMART [facility] Relation: Father Signed: Rosalva Luevano MD 12/29/2018, 5:37 PM Associated attestation - Carlos Jordan MD - 12/29/2018 9:28 PM CDT [facility] Adult Hospitalist Attending Note I reviewed [...] file Carlos Jordan MD 12/29/2018 9:22 PM [facility] Approximately 35 minutes was spent in the care of this patient today; more than 50% was spent in counseling and coordination of care (patient/family conference, nursing conference and/or discussion with consultants). This patient is covered by internal medicine residents To reach Internal Medicine covered patients: Saturday-Saturday 7 AM- 5 PM: Page via the [facility] E-List 5 PM-7 AM: Call the non categorical preschool teacher internal grinding machine operator at zone phone [phone]. If no response please page the senior resident at [phone] Saturday and Saturday: 7 AM-12 PM: Page via the [facility] E-List 12 PM-7 AM: Call the non categorical preschool teacher internal grinding machine operator at zone phone [phone]. If no response please page the senior resident at [phone] If no response to the above steps in 10 minutes, please page the attending physician. documented in this encounter Discharge Instructions * Discharge Instructions* Marlene Starks DO - 12/29/2018 1:41 PM CDT Your discharging physicians are Carlos Jordan MD /Marlene Starks DO and may be reached at [phone] for any questions or concerns until you [...] tablet Take 300 mg by mouth daily dough cutter. pregabalin (LYRICA) 100 mg Capsule Take 100 [...] MD order. Script to be filled by [facility] pharmacy. Patient remains free from distress at [...] 33.25 kg/m?? Current Facility-Administered Medications Ordered in [facility] Medication Dose Route Frequency Provider Last Rate [...] sign off. D/W Dr. Joon Kay, PA-C [facility] Gastroenterology Pager:[phone] As noted above. Feeling better on Amitiza- will continue. No additional GI studies anticipated at this time. OK for discharge with outpatient follow-up with Dr. Mahajan. Will sign off. Hari Dupree MD [facility] Gastroenterology * Diane Herrera, RT - 12/28/2018 6:54 PM CDT ?ST IMS CT MRI Medication and Flush Protocol [facility] Approved by: [facility] - Medical Executive Committee Approval Date: 11/06/2018 [...] procedure. ??? If at any time the Cadastral Engineer has a question about which option to [...] oral. May use nasoenteric tube if needed. [place] to 3 months Administer up to 90mL [...] solution with the pateint's nurse to CT [place] Administer 45mL of diluted Iohexol oral solution, [...] Starks DO 12/28/2018 5:01 PM Pager # [phone] I discussed the assessment of plan for the above patient with Carlos Brito MD This note was transcribed using [employer]iber[employer] voice recognition without a human financial wellness coach. This report may or may not have been adjusted for typographical, grammaticaland syntax errors. This patient is covered by internal medicine residents To reach Internal Medicine covered patients: Saturday-Saturday 7 AM- 5 PM: Via secure text, if resident does not answer please page via the [facility] E-List 5 PM-7 AM: Via secure text (non categorical preschool teacher internal grinding machine operator will place themselves on the treatment team). If the resident does not answer call the [facility] phone [phone]. If no response please page the senior resident at [phone] Saturday and Saturday: 7 AM-12 PM: Via secure text, if resident does not answer please page via the [facility]-List 12 PM-7 AM: Via secure text (non categorical preschool teacher internal grinding machine operator will place themselves on the treatment team). If the resident does not answer call the [employer] phone [phone]. If no response please page the senior resident [phone] If no response to the above steps in 10 minutes, please page the attending physician via secure text or via the [facility]-list. Associated attestation - Carlos Jordan MD - 12/29/2018 8:26 AM CDT [facility] Hospitalist Attending Note I reviewed the medical [...] read. Carlos Jordan MD 12/29/2018 8:22 AM [facility] Approximately 35 minutes was spent in the care of this patient today; more than 50% was spent in counseling and coordination of care (patient/family conference, nursing conference and/or discussion with consultants). This patient is covered by internal medicine residents To reach Internal Medicine covered patients: Saturday-Saturday 7 AM- 5 PM: Page via the [facility] E-List 5 PM-7 AM: Call the non categorical preschool teacher internal grinding machine operator at zone phone [phone]. If no response please page the senior resident at [phone] Saturday and Saturday: 7 AM-12 PM: Page via the [facility] E-List 12 PM-7 AM: Call the non categorical preschool teacher internal grinding machine operator at zone phone [phone]. If no response please page the senior resident at [phone] If no response to the above steps [...] Pt sent down for CT of abd [id number] with oral contrast. * Frannie Miranda MD [...] be of further assistance. Frannie Miranda MD [facility] Digestive Diseases * Ghazala Kraft, RN - [...] MD - 12/27/2018 1:07 PM CDT .. [facility] Internal Medicine Teaching Service History [...] colitis + 2 polyps excised, done in [facility] in [place], requested copy of report) that is admitted for acute on chronic abdominal pain. Pt states last Saturday dough cutter she woke from sleep with sharp 9/10 [...] be easier as her GI is from [facility]. Her acute abd pain differs from the [...] Sig: Take 300 mg by mouth daily dough cutter. dicyclomine (BENTYL) 10 mg capsule 12/26/2018 at [...] or wheezing Cardiac: No CP, SOB,HX of CT, or angina GI: No n/v, no abdominal [...] guarding, tenderness in all quadrants, no masses HEALTH TECHNICAL WRITER Not evaluated Extremities Normal Pulses +2 radial [...] PROTIMEPOC ABG: No results found for: PHARTERIAL, [id number], PO2ART, NGK7SVU, BASEEXCESS, SO2ABG Lactic acid: No results found [...] Clear Liquid Nutritional Supplementation: N/A Family Communication: [id number], Telephone or Participation during IDT rounds Code [...] pathway initiated This note was transcribed using [email or web address] naturally speaking computerized voice recognition without a human financial wellness coach. This report may or may not have been adjusted for typographical, grammaticaland syntax errors. This patient is covered by internal medicine residents To reach Internal Medicine covered patients: Saturday-Saturday 7 AM- 5 PM: Via secure text, if resident does not answer please page via the [facility]-List 5 PM-7 AM: Via secure text (non categorical preschool teacher internal grinding machine operator will place themselves on the treatment team). If the resident does not answer call the zone phone [phone]. If no response please page the senior resident at [phone] Saturday and Saturday: 7 AM-12 PM: Via secure text, if resident does not answer please page via the [facility] E-List 12 PM-7 AM: Via secure text (non categorical preschool teacher internal grinding machine operator will place themselves on the treatment team). If the resident does not answer call the zone phone [phone]. If no response please page the senior resident [phone] If no response to the above steps in 10 minutes, please page the attending physician via secure text or via the [facility] E-list. Associated attestation - Carlos Jordan MD - 12/27/2018 2:20 PM CDT [facility] Adult Hospitalist Attending Note I reviewed [...] system for review, [facility]D, advance as tolerated. Avoid narcotics for pain. Carlos Jordan MD 12/27/2018 2:11 PM [facility] Approximately 50 minutes was spent in the care of this patient today; more than 50% was spent in counseling and coordination of care (patient/family conference, nursing conference and/or discussion with consultants). This patient is covered by internal medicine residents To reach Internal Medicine covered patients: Saturday-Saturday 7 AM- 5 PM: Page via the [facility] E-List 5 PM-7 AM: Call the non categorical preschool teacher internal grinding machine operator at zone phone [phone]. If no response please page the senior resident at [phone] Saturday and Saturday: 7 AM-12 PM: Page via the [facility] E-List 12 PM-7 AM: Call the non categorical preschool teacher internal grinding machine operator at zone phone [phone]. If no response please page the senior resident at [phone] If no response to the above steps [...] 12:56 PM CDT Inpatient GI Consultation Note [facility] Gastroenterology Consultation Note Patient: Julian Sauer / 43 y.o. / female : 1975 Date: 12/27/2018 CSN: [id number] Referring Physician:No ref. provider found PCP: Isaiah Quiros MD Reason for consult: History of Present Illness: Julian Sauer is a 43 y.o. who presents to her GP for acute abdominla pain THis is chornic pain. SHE stevens see Dr. Mahajan and reprots taht she could note get in and she went to her GP this past week. eh was sent to [facility] for A CT ascan and then she came to the ER her for evaltuaion of the pain. THe coker has been going for two years. At [facility] the pain can get bad up to [...] labs. 10:12 PM: Discussed with Dr. Viera ([facility] Hospitalist) who will admit to medical floor. [...] Condition User Date/Time Comment Admit Stable Binh Choudhruy DO SatDec 26, 2018 10:16 PM ATTESTATION [...] to follow for discharge planning. Alix Lanza commercial real estate assistant [id number] * Care Plan - Blanca Gregory RN [...] - 4.20 uIU/mL 12/29/2018 9:22 AM CDT [facility] Blood Venipuncture / Unknown 12/29/2018 7:34 AM CDT 12/29/2018 7:54 AM CDT Carlos Jordan MD CHEMISTRY ORDERABLES [facility] LABORATORY SERVICES - [facility] CLIA# [id number] [facility] [place] [address] * (ABNORMAL) COMPREHENSIVE METABOLIC PANEL (12/29/2018 7:34 AM CDT) Pathologist [facility] SODIUM 141 136 - 145 mmol/L 12/29/2018 9:03 AM [facility] [employer] LABORATORY SERVICES - [facility] POTASSIUM 3.9 3.5 - 5.0 mmol/L 12/29/2018 9:03 AM [facility] [employer] LAB[facility]ATORY SERVICES - [facility] CHLORIDE 107 98 - 107 mmol/L 12/29/2018 9:03 AM [facility] [employer] [facility]ATORY SERVICES - [facility] CO2 22 22 - 29 mmol/L 12/29/2018 9:03 AM T [facility] LABORATORY SERVICES - [facility] CALCIUM 8.3(L) 8.6 - 10.2 mg/dL 12/29/2018 9:03 AM [facility] [employer] LABORATORY SERVICES - [facility] BUN 3(L) 6 - 20 mg/dL 12/29/2018 9:03 AM [facility] LABORATORY SERVICES - [facility] CREATININE 1.00(H) 0.51 - 0.95 mg/dL 12/29/2018 9:03 AM [facility] [employer] LABORATORY SERVICES - [facility] GLUCOSE 82 74 - 99 mg/dL 12/29/2018 9:03 AM T [facility] LAB[facility]ATORY SERVICES - [facility] TOTAL PROTEIN 6.5(L) 6.7 - 8.6 g/dL 12/29/2018 9:03 AM [facility] [employer] LABORATORY SERVICES - [facility] ALBUMIN 3.7 3.5 - 5.2 g/dL 12/29/2018 9:03 AM [facility] [employer] LABORATORY SERVICES - [facility] BILIRUBIN TOTAL 0.3 0.3 - 1.2 mg/dL 12/29/2018 9:03 AM [facility] [employer] LABORATORY SERVICES - [facility] ALKALINE PHOSPHATASE 75 35 - 104 U/L 12/29/2018 9:03 AM [facility] LABORATORY [facility] AST 14 <33 U/L 12/29/2018 9:03 AM [facility] ALT 17 <34 U/L 12/29/2018 9:03 AM [facility] GFR 60 >=60 mL/min/1.7 3 sq meter 12/29/2018 9:03 AM [facility] LABORATORY [facility] Comment: eGFR has not been validated for [...] mL/min/1.7 3 sq meter 12/29/2018 9:03 AM [facility] LABORATORY [facility] ANION GAP 12 8 - 16 mmol/L 12/29/2018 9:03 AM [facility] Blood Venipuncture / Unknown 12/29/2018 7:34 AM CDT 12/29/2018 7:54 AM [facility] - 12/29/2018 9:03 AM CDT Samples containing indocyanine green cause interferences on Total and/or Direct Bilirubin and must not be measured. Carlos Jordan MD CHEMISTRY ORDERABLES [facility] [id number] [address] [place] [place] [address] * (ABNORMAL) CBC WITH DIFFERENTIAL (12/29/2018 7:34 AM CDT) WBC 4.7 4.0 - 9.8 K/uL 12/29/2018 8:18 AM [facility] Shop pirate [facility] RBC 4.28 3.90 - 4.90 M/uL 12/29/2018 8:18 AM CDT [facility] LABORATORY SERVICES - [facility] HEMOGLOBIN 10.0(L) 11.8 - 14.8 g/dL 12/29/2018 8:18 AM CDT [facility] LABORATORY SERVICES - [facility] HEMATOCRIT 34.5(L) 35.5 - 44.0 % 12/29/2018 8:18 AM CDT [facility] LABORATORY SERVICES - [facility] MCV 80.6(L) 82.0 - 99.0 fL 12/29/2018 8:18 AM CDT [facility] LABORATORY SERVICES - [facility] MCH 23.4(L) 27.2 - 32.6 pg 12/29/2018 8:18 AM CDT [employer] LABORATORY SERVICES - [facility] MCHC 29.0(L) 31.5 - 35.5 g/dL 12/29/2018 8:18 AM CDT [employer] LABORATORY SERVICES - [facility] RDW 17.0(H) 11.5 - 14.5 % 12/29/2018 8:18 AM CDT [employer] LABORATORY SERVICES - [facility] RDW-STDEV 49.4(H) 37.1 - 48.7 fL 12/29/2018 8:18 AM CDT [employer] LABORATORY SERVICES - [facility] PLATELETS 354(H) 140 - 350 K/uL 12/29/2018 8:18 AM CDT [employer] LABORATORY SERVICES - [facility] MPV 9.2(L) 9.3 - 12.4 fL 12/29/2018 8:18 AM CDT [employer] LABORATORY SERVICES - [facility] NEUTROPHILS 53 % 12/29/2018 8:18 AM CDT [employer]ORY SERVICES - [facility] LYMPHOCYTES 35 % 12/29/2018 8:18 AM CDT [facility]ATORY SERVICES - [facility] MONOCYTES 9 % 12/29/2018 8:18 AM CDT [facility]ORY SERVICES - [facility] EOSINOPHILS 2 % 12/29/2018 8:18 AM CDT [employer] LABORATORY SERVICES - [facility] BASOPHILS 1 % 12/29/2018 8:18 AM CDT [employer] LABORATORY SERVICES - . [facility] IMMATURE GRANULOCYTES 0 % 12/29/2018 8:18 AM CDT [employer] LABORATORY SERVICES - [facility] NEUTROPHIL ABSOLUTE 2.48 1.90 - 7.00 K/uL 12/29/2018 8:18 AM CDT [facility]ATORY SERVICES - [facility] LYMPHOCYTE ABSOLUTE 1.65 0.70 - 4.50 K/uL 12/29/2018 8:18 AM CDT [facility] LABORATORY [facility] - [facility] MONOCYTE ABSOLUTE 0.43 0.10 - 1.30 K/uL 12/29/2018 8:18 AM CDT [facility] LABORATORY [facility] - [facility] EOSINOPHIL ABSOLUTE 0.07 0.00 - 0.70 K/uL 12/29/2018 8:18 AM CDT [facility] LABORATORY [facility] - [facility] BASOPHILS ABSOLUTE 0.04 0.00 - 0.20 K/uL 12/29/2018 8:18 AM CDT [facility] LABORATORY [facility] - [facility] IMMATURE GRANULOCYTES ABSOLUTE 0.01 0.00 - 0.03 K/uL 12/29/2018 8:18 AM [facility] LABORATORY [facility] Blood Venipuncture / Unknown 12/29/2018 7:34 AM CDT 12/29/2018 7:54 AM CDT Carlos Jordan MD HEMATOLOGY ORDERABLE S [facility]# [id number] [facility] FARGOLASHAUN [facility] [place] [address] * CTA ABD PELVIS W AND/OR WO [...] 4:03 PM CDT [facility]ATORY SERVICES - [facility] HEMATOCRIT 36.6 35.5 - 44.0 % 12/28/2018 4:03 PM CDT [facility] LABORATORY SERVICES - [facility] Blood Venipuncture / Unknown 12/28/2018 3:51 PM CDT 12/28/2018 3:54 PM CDT Carlos Jordan MD HEMATOLOGY ORDERABLE S Performing Organization Address City/[facility]/ZIP Co de Phone Number [facility]# [id number] [address] [place] [address] * LIPASE (12/28/2018 8:09 AM CDT) Pathologist [facility] LIPASE 50 13 - 60 U/L 12/28/2018 1:02 PM T [facility] LABORATORY SERVICES [facility] Blood Venipuncture / Unknown 12/28/2018 8:09 AM CDT 12/28/2018 8:27 AM CDT Carlos Jordan MD CHEMISTRY ORDERABLES [facility] [employer] [facility] CLIA# [id number] [address] [place] [address] * (ABNORMAL) COMPREHENSIVE METABOLIC PANEL (12/28/2018 8:09 AM CDT) SODIUM 139 136 - 145 mmol/L 12/28/2018 9:01 AM T [facility] LABORATORY SERVICES - [facility] POTASSIUM 4.1 3.5 - 5.0 mmol/L 12/28/2018 9:01 AM T [facility] LABORATORY SERVICES [facility] CHLORIDE 108(H) 98 - 107 mmol/L 12/28/2018 9:01 AM T [facility] LABORATORY SERVICES [facility] CO2 23 22 - 29 mmol/L 12/28/2018 9:01 AM T [facility] LABORATORY SERVICES - [facility] CALCIUM 8.2(L) 8.6 - 10.2 mg/dL 12/28/2018 9:01 AM T [employer] LABORATORY SERVICES - [facility] BUN 6 6 - 20 mg/dL 12/28/2018 9:01 AM [facility] [employer] [facility] - [facility] CREATININE 0.99(H) 0.51 - 0.95 mg/dL 12/28/2018 9:01 AM [facility] Agent [employer] LABORATORY [facility] - . [facility] GLUCOSE 88 74 - 99 mg/dL 12/28/2018 9:01 AM [facility] Agent [employer] LABORATORY [facility] - . [facility] TOTAL PROTEIN 6.7 6.7 - 8.6 g/dL 12/28/2018 9:01 AM [facility] [employer] [facility] - . [facility] ALBUMIN 3.7 3.5 - 5.2 g/dL 12/28/2018 9:01 AM [facility] [employer] [facility]. [facility] BILIRUBIN TOTAL 0.2(L) 0.3 - 1.2 mg/dL 12/28/2018 9:01 AM [facility] [employer] [facility] - . [facility] ALKALINE PHOSPHATASE 71 35 - 104 U/L 12/28/2018 9:01 AM [facility] [employer] [facility] - . [facility] AST 13 <33 U/L 12/28/2018 9:01 AM [facility] [employer] [facility] - . [facility] ALT 9 <34 U/L 12/28/2018 9:01 AM [facility] [employer] [facility] - [facility] GFR >60 >=60 mL/min/1.7 3 sq meter 12/28/2018 9:01 AM [facility] Comment: eGFR has not been validated for [...] mL/min/1.7 3 sq meter 12/28/2018 9:01 AM [facility] ANION GAP 8 8 - 16 mmol/L 12/28/2018 9:01 AM [facility] Blood Venipuncture / Unknown 12/28/2018 8:09 AM CDT 12/28/2018 8:27 AM CDT [facility] LABORATORY SERVICES - [facility] - 12/28/2018 9:01 AM CDT Samples containing indocyanine green cause interferences on Total and/or Direct Bilirubin and must not be measured. Carlos Jordan MD CHEMISTRY ORDERABLES [facility] CLIA# [id number] [facility] [place] [address] * (ABNORMAL) CBC WITH DIFFERENTIAL (12/28/2018 8:09 AM CDT) WBC 6.5 4.0 - 9.8 K/uL 12/28/2018 8:33 AM [facility] RBC 4.26 3.90 - 4.90 M/uL 12/28/2018 8:33 AM [facility] HEMOGLOBIN 10.4(L) 11.8 - 14.8 g/dL 12/28/2018 8:33 AM [facility] LABORATORY [facility] HEMATOCRIT 34.9(L) 35.5 - 44.0 % 12/28/2018 8:33 AM [facility] LABORATORY [facility] MCV 81.9(L) 82.0 - 99.0 fL 12/28/2018 8:33 AM [facility] MCH 24.4(L) 27.2 - 32.6 pg 12/28/2018 8:33 AM [facility] LABORATORY [facility] MCHC 29.8(L) 31.5 - 35.5 g/dL 12/28/2018 8:33 AM [facility] [employer] [facility] RDW 17.0(H) 11.5 - 14.5 % 12/28/2018 8:33 AM [facility] LABORATORY [facility] RDW-STDEV 50.5(H) 37.1 - 48.7 fL 12/28/2018 8:33 AM [facility] LABORATORY [facility] PLATELETS 354(H) 140 - 350 K/uL 12/28/2018 8:33 AM CDT [employer] LABORATORY SERVICES - [facility] MPV 8.9(L) 9.3 - 12.4 fL 12/28/2018 8:33 AM CDT [email or web address] NEUTROPHILS 64 % 12/28/2018 8:33 AM CDT [facility] LABORATORY SERVICES - [facility] LYMPHOCYTES 27 % 12/28/2018 8:33 AM CDT [email or web address] MONOCYTES 7 % 12/28/2018 8:33 AM CDT [email or web address] EOSINOPHILS 1 % 12/28/2018 8:33 AM CDT [email or web address] BASOPHILS 1 % 12/28/2018 8:33 AM CDT [email or web address] IMMATURE GRANULOCYTES 1 % 12/28/2018 8:33 AM T [email or web address] - [facility] Comment:IG (Immature Granulo cyte) count includes Metamyelocytes, Myelocytes, and Promyelocytes NEUTROPHIL ABSOLUTE 4.19 1.90 - 7.00 K/uL 12/28/2018 8:33 AM CDT [email or web address] LYMPHOCYTE ABSOLUTE 1.72 0.70 - 4.50 K/uL 12/28/2018 8:33 AM CDT [email or web address] MONOCYTE ABSOLUTE 0.43 0.10 - 1.30 K/uL 12/28/2018 8:33 AM CDT [facility] LABORATORY SERVICES - [facility] EOSINOPHIL ABSOLUTE 0.07 0.00 - 0.70 K/uL 12/28/2018 8:33 AM CDT [email or web address] BASOPHILS ABSOLUTE 0.06 0.00 - 0.20 K/uL 12/28/2018 8:33 AM CDT [email or web address] - . [facility] IMMATURE GRANULOCYTES ABSOLUTE 0.03 0.00 - 0.03 K/uL 12/28/2018 8:33 AM T [email or web address] Blood Venipuncture / Unknown 12/28/2018 8:09 AM CDT 12/28/2018 8:28 AM CDT Carlos Jordan MD HEMATOLOGY ORDERABLE S [facility] [employer] SERVICES - [facility] CLIA# [id number] [address] [place] [address] * (ABNORMAL) HEMOGLOBIN AND HEMATOCRIT (12/27/2018 11:41 PM CDT) HEMOGLOBIN 9.8(L) 11.8 - 14.8 g/dL 12/28/2018 12:19 AM CDT [facility] HEMATOCRIT 33.1(L) 35.5 - 44.0 % 12/28/2018 12:19 AM CDT [facility] LABORATORY [facility] Blood Venipuncture / Unknown 12/27/2018 11:41 PM CDT 12/28/2018 12:13 AM CDT Carlos Jordan MD HEMATOLOGY ORDERABLE S [facility] CLIA# [id number] [address] [place], [place] [address] * (ABNORMAL) HEMOGLOBIN AND HEMATOCRIT (12/27/2018 4:04 PM CDT) HEMOGLOBIN 11.0(L) 11.8 - 14.8 g/dL 12/27/2018 4:30 PM CDT [facility] HEMATOCRIT 37.2 35.5 - 44.0 % 12/27/2018 4:30 PM CDT [facility] Blood Venipuncture / Unknown 12/27/2018 4:04 PM CDT 12/27/2018 4:11 PM CDT Carlos Jordan MD HEMATOLOGY ORDERABLE S [facility] CLIA# [id number] [address] [place] [address] * URINALYSIS WITH REFLEX MICROSCOPIC (12/27/2018 12:11 PM CDT) COLOR UA Yellow Pale to Dark Yellow 12/27/2018 12:53 PM CDT [facility] LABORATORY SERVICES - [facility] CLARITY UA Clear Clear 12/27/2018 12:53 PM CDT [facility] LABORATORY SERVICES - [facility] SPECIFIC GRAVITY UA 1.011 1.003 - 1.035 12/27/2018 12:53 PM CDT [facility] LABORATORY SERVICES - [facility] PH UA 6.0 5.0 - 8.0 12/27/2018 12:53 PM CDT [facility] LAB[facility]ATORY SERVICES - [facility] LEUKOCYTE ESTERASE UA Negative Negative 12/27/2018 12:53 PM CDT [facility] LABORATORY SERVICES - [facility] NITRITE UA Negative Negative 12/27/2018 12:53 PM CDT [facility]ATORY SERVICES - [facility] PROTEIN UA Negative Negative 12/27/2018 12:53 PM CDT [facility]ATORY SERVICES - [facility] GLUCOSE UA Negative Negative 12/27/2018 12:53 PM CDT [facility]ATORY SERVICES - [facility] KETONES UA Negative Negative 12/27/2018 12:53 PM CDT [facility]ATORY SERVICES - [facility] UROBILINOGEN UA Normal <2.0 mg/dL 9 12:53 PM CDT [facility]ATORY SERVICES - [facility] BILIRUBIN UA Negative Negative 12/27/2018 12:53 PM CDT [facility]ORY SERVICES - [facility] BLOOD UA Negative Negative 12/27/2018 12:53 PM CDT [facility]ORY [facility] - [facility] Urine URINE SPECIMEN OBTAINED BY CLEAN CATCH PROCEDURE / Unknown Collection / Unknown 12/27/2018 12:11 PM CDT 12/27/2018 12:39 PM CDT Carlos Jordan MD URINE ORDERABLES [facility] LABORATORY SERVICES - [facility]# [id number] [address] [facility] [address] * EKG 12-LEAD (12/27/2018 11:41 AM CDT) 12/27/2018 11:4 1 AM CDT Narrative INTERFACE SYSTEM - 12/28/2018 2:50 PM CDT ? Stationary ECG Study ? [facility] ? Test Date: ?12/27/2018 11:41 AM Pat Name: ? JULIAN SAUER ?Department: ?? 45 ?Room: ? 7308 1 Gender: ? F ?Push Connector Assembler: ?? djm : ?1975 ? Requested By: BINH CHOUDHURY Order Number: [id number] ?Reading MD: ?? Vince Hodgeyr ? Measurements Intervals ?Jackson ? Rate: ? 83 ? P: ?30 DC: ? 139 ?QRS: ?32 QRSD: ? 89 ? T: ?21 QT: ? 387 ? QTc: ?455 ? Interpretive Statements ? Sinus rhythm Electronically Signed On 12-28-2018 14:50:02 CDT by Vince Amezcua Procedure Note Vince Amezcua MD - 06/07/2021 Stationary ECG Study [facility] Test Date: 12/27/2018 11:41 AM Pat Name: JULIAN SAUER Department: Room: [facility] Gender: F Push Connector Assembler: rian : 1975 Requested By: BINH CHOUDHURY Order Number: [id number] Ric MD: Vince Amezcua Measurements Intervals Jackson Rate: 83 P: 30 DC: 139 QRS: 32 QRSD: 89 T: 21 QT: 387 QTc: 455 Interpretive Statements Sinus rhythm Electronically Signed On 12-28-2018 14:50:02 CDT by Vince Amezcua Carlos Jordan MD ECG ORDERABLES Performing Organization Address City/State/[facility] Co de Phone Number INTERFACE SYSTEM Refer to clinic/hospital department * (ABNORMAL) CBC WITH DIFFERENTIAL (12/27/2018 7:04 AM CDT) [facility] WBC 7.1 4.0 - 9.8 K/uL 12/27/2018 8:38 AM CDT [facility] RBC 4.24 3.90 - 4.90 M/uL 12/27/2018 8:38 AM CDT [facility] HEMOGLOBIN 10.3(L) 11.8 - 14.8 g/dL 12/27/2018 8:38 AM CDT [facility] HEMATOCRIT 34.8(L) 35.5 - 44.0 % 12/27/2018 8:38 AM CDT [facility] LABORATORY SERVICES - [facility] MCV 82.1 82.0 - 99.0 fL 12/27/2018 8:38 AM CDT [facility] LAB[facility]ATORY SERVICES - [facility] MCH 24.3(L) 27.2 - 32.6 pg 12/27/2018 8:38 AM CDT [facility] LAB[facility]ATORY SERVICES - [facility] MCHC 29.6(L) 31.5 - 35.5 g/dL 12/27/2018 8:38 AM CDT [facility]ATORY SERVICES - . [facility] RDW 17.2(H) 11.5 - 14.5 % 12/27/2018 8:38 AM CDT [facility] LABORATORY SERVICES - . [facility] RDW-STDEV 51.4(H) 37.1 - 48.7 fL 12/27/2018 8:38 AM CDT [facility] LABORATORY SERVICES - . [facility] PLATELETS 346 140 - 350 K/uL 12/27/2018 8:38 AM CDT [facility] LABORATORY SERVICES - . [facility] MPV 9.1(L) 9.3 - 12.4 fL 12/27/2018 8:38 AM CDT [facility] LAB[facility]ATORY SERVICES - [facility] NEUTROPHILS 59 % 12/27/2018 8:38 AM CDT [facility] LAB[facility]ATORY SERVICES - [facility] LYMPHOCYTES 32 % 12/27/2018 8:38 AM CDT [facility]ATORY SERVICES - [facility] MONOCYTES 7 % 12/27/2018 8:38 AM CDT [facility]ATORY SERVICES - [facility] EOSINOPHILS 1 % 12/27/2018 8:38 AM CDT [facility] LAB[facility]ATORY SERVICES - [facility] BASOPHILS 1 % 12/27/2018 8:38 AM CDT [facility] LAB[facility]ATORY SERVICES - [facility] IMMATURE GRANULOCYTES 0 % 12/27/2018 8:38 AM CDT [facility]ATORY SERVICES - [facility] NEUTROPHIL ABSOLUTE 4.15 1.90 - 7.00 K/uL 12/27/2018 8:38 AM CDT [facility]ATORY SERVICES - [facility] LYMPHOCYTE ABSOLUTE 2.28 0.70 - 4.50 K/uL 12/27/2018 8:38 AM CDT [facility]ATORY SERVICES - [facility] MONOCYTE ABSOLUTE 0.49 0.10 - 1.30 K/uL 12/27/2018 8:38 AM CDT [facility] LAB[facility]ATORY SERVICES - [facility] EOSINOPHIL ABSOLUTE 0.08 0.00 - 0.70 K/uL 12/27/2018 8:38 AM CDT [facility] LABORATORY SERVICES - [facility] BASOPHILS ABSOLUTE 0.07 0.00 - 0.20 K/uL 12/27/2018 8:38 AM CDT [facility] IMMATURE GRANULOCYTES ABSOLUTE 0.03 0.00 - 0.03 K/uL 12/27/2018 8:38 AM CDT [facility] LABORATORY SERVICES - [facility] Blood Venipuncture / Unknown 12/27/2018 7:04 AM CDT 12/27/2018 7:15 AM CDT Carlos Jordan MD HEMATOLOGY ORDERABLE S [facility] LABORATORY [facility] CLIA# [id number] [address] [place] [address] * (ABNORMAL) HEMOGLOBIN AND HEMATOCRIT (12/27/2018 7:04 AM CDT) HEMOGLOBIN 10.4(L) 11.8 - 14.8 g/dL 12/27/2018 7:44 AM CDT [facility] LABORATORY SERVICES - [facility] HEMATOCRIT 35.1(L) 35.5 - 44.0 % 12/27/2018 7:44 AM CDT [facility] LABORATORY SERVICES - [facility] Blood Venipuncture / Unknown 12/27/2018 7:04 AM CDT 12/27/2018 7:15 AM CDT Carlos Jordan MD HEMATOLOGY ORDERABLE S [facility] [employer] [facility] CLIA# [id number] [address] [place] [address] * (ABNORMAL) HEMOGLOBIN AND HEMATOCRIT (12/27/2018 12:31 AM CDT) HEMOGLOBIN 10.4(L) 11.8 - 14.8 g/dL 12/27/2018 12:49 AM CDT [facility] LABORATORY SERVICES [facility] HEMATOCRIT 35.1(L) 35.5 - 44.0 % 12/27/2018 12:49 AM CDT [facility] LABORATORY [facility] Blood Venipuncture / Unknown 12/27/2018 12:31 AM CDT 12/27/2018 12:34 AM CDT Carlos Jordan MD HEMATOLOGY ORDERABLE S [facility] CLIA# [id number] [address] [place] [address] * (ABNORMAL) LIPASE (12/26/2018 7:33 PM CDT) LIPASE 67(H) 13 - 60 U/L 12/26/2018 9:15 PM CDT [facility] LABORATORY [facility] Blood Venipuncture / Unknown 12/26/2018 7:33 PM CDT 12/26/2018 7:38 PM CDT Binh Choudhury DO CHEMISTRY ORDERABLES Performing Organization Address [facility]/ZIP Co de Phone Number [facility] CLIA# [id number] [address] [place] [address] * HCG QUALITATIVE, URINE (12/26/2018 7:33 PM CDT) HCG QUAL URINE Negative Negative 12/26/2018 8:43 PM CDT [facility] LABORATORY [facility] COLOR UA Yellow Pale to Dark Yellow 12/26/2018 8:43 PM CDT [facility] LABORATORY [facility] CLARITY UA Clear Clear 12/26/2018 8:43 PM CDT [facility] LABORATORY [facility] Urine URINE SPECIMEN OBTAINED BY CLEAN CATCH PROCEDURE / Unknown Collection / Unknown 12/26/2018 7:33 PM CDT 12/26/2018 7:48 PM CDT Binh Choudhury DO URINE ORDERABLES Performing Organization Address City/[facility]/ZIP Co de Phone Number [facility] CLIA# [id number] [address] [facility] [place] [address] * (ABNORMAL) URINALYSIS WITH REFLEX MICROSCOPIC (12/26/2018 7:33 PM CDT) COLOR UA Yellow Pale to Dark Yellow 12/26/2018 8:30 PM CDT [facility] LAB[facility]ATORY SERVICES - [facility] CLARITY UA Clear Clear 12/26/2018 8:30 PM CDT [facility]ATORY SERVICES - [facility] SPECIFIC GRAVITY UA 1.020 1.003 - 1.035 12/26/2018 8:30 PM CDT [facility]ATORY SERVICES - . [facility] PH UA 6.0 5.0 - 8.0 12/26/2018 8:30 PM CDT [facility] LAB[facility]ATORY SERVICES - . [facility] LEUKOCYTE ESTERASE UA 1+(A) Negative 12/26/2018 8:30 PM T [facility] LAB[facility]ATORY SERVICES - . [facility] NITRITE UA Negative Negative 12/26/2018 8:30 PM CDT [facility]ATORY SERVICES - . [facility] PROTEIN UA 1+(A) Negative 12/26/2018 8:30 PM CDT [facility] LABORATORY SERVICES - . [facility] GLUCOSE UA Negative Negative 12/26/2018 8:30 PM CDT [facility] LABORATORY SERVICES - [facility] KETONES UA Negative Negative 12/26/2018 8:30 PM CDT [facility] LABORATORY SERVICES - . [facility] UROBILINOGEN UA Normal <2.0 mg/dL 9 8:30 PM CDT [facility] SERVICES - [facility] BILIRUBIN UA Negative Negative 12/26/2018 8:30 PM CDT [facility] LABORATORY SERVICES - . [facility] BLOOD UA Negative Negative 12/26/2018 8:30 PM CDT [facility] SERVICES - [facility] WBC UA 3-5(A) 0 - 2 /hpf 12/26/2018 8:30 PM CDT [facility] SERVICES - [facility] RBC UA 3-5(A) 0 - 2 /hpf 12/26/2018 8:30 PM CDT [facility] LAB[facility]ATORY SERVICES - . [facility] BACTERIA UA 1+(A) Negative /hpf 12/26/2018 8:30 PM CDT [facility] LABORATORY SERVICES - . [facility] EPITHELIAL CELLS, URINE 6-10(A) 0 - 5 /hpf 12/26/2018 8:30 PM CDT [facility] LABORATORY SERVICES - . [facility] YEAST, BUDDING Present(A) Absent 12/26/2018 8:30 PM CDT [facility] LABORATORY SERVICES [facility] Comment:Results confirmed by 2nd methodology. Urine URINE SPECIMEN OBTAINED BY CLEAN CATCH PROCEDURE / Unknown Collection / Unknown 12/26/2018 7:33 PM CDT 12/26/2018 7:47 PM CDT Binh Santiagorobertgui DO URINE ORDERABLES [facility] LABORATORY SERVICES [facility] CLIA# [id number] [address] [facility] [place] [address] * (ABNORMAL) COMPREHENSIVE METABOLIC PANEL (12/26/2018 7:33 PM CDT) SODIUM 136 136 - 145 mmol/L 12/26/2018 8:16 PM CDT [facility] LABORATORY SERVICES [facility] POTASSIUM 5.4(H) 3.5 - 5.0 mmol/L 12/26/2018 8:16 PM T [facility] LABORATORY SERVICES - [facility] Comment:Moderate hemolysis p resent. Can cause significant falsely elevated result. Redraw if indicated. CHLORIDE 104 98 - 107 mmol/L 12/26/2018 8:16 PM T [facility] LABORATORY SERVICES - . [facility] CO2 18(L) 22 - 29 mmol/L 12/26/2018 8:16 PM CDT [facility] LABORATORY SERVICES - . [facility] CALCIUM 8.7 8.6 - 10.2 mg/dL 12/26/2018 8:16 PM CDT [facility] LABORATORY SERVICES - . [facility] BUN 11 6 - 20 mg/dL 12/26/2018 8:16 PM CDT [facility]ATORY SERVICES - . [facility] CREATININE 0.95 0.51 - 0.95 mg/dL 12/26/2018 8:16 PM CDT [facility]ATORY SERVICES - . [facility] GLUCOSE 82 74 - 99 mg/dL 12/26/2018 8:16 PM T [facility] LABORATORY SERVICES - . [facility] TOTAL PROTEIN 7.6 6.7 - 8.6 g/dL 12/26/2018 8:16 PM CDT [facility]ATORY SERVICES - . [facility] ALBUMIN 4.1 3.5 - 5.2 g/dL 12/26/2018 8:16 PM CDT [facility] LABORATORY [facility] BILIRUBIN TOTAL 0.2(L) 0.3 - 1.2 mg/dL 12/26/2018 8:16 PM [facility] LABORATORY [facility] ALKALINE PHOSPHATASE 78 35 - 104 U/L 12/26/2018 8:16 PM [facility] AST 27 <33 U/L 12/26/2018 8:16 PM [facility] LABORATORY [facility] Comment:Hemolysis present. R esult may be falsely elevated. ALT 11 <34 U/L 12/26/2018 8:16 PM [facility] LABORATORY [facility] Comment:Hemolysis present. R esult may be falsely elevated. GFR >60 >=60 mL/min/1.7 3 sq meter 12/26/2018 8:16 PM [facility] Comment: eGFR has not been [...] mL/min/1.7 3 sq meter 12/26/2018 8:16 PM [facility] ANION GAP 14 8 - 16 mmol/L 12/26/2018 8:16 PM T [facility] Blood Venipuncture / Unknown 12/26/2018 7:33 PM CDT 12/26/2018 7:38 PM CDT [facility] LABORATORY [facility] - 12/26/2018 8:16 PM CDT Samples containing indocyanine green cause interferences on Total and/or Direct Bilirubin and must not be measured. Binh Choudhury DO CHEMISTRY ORDERABLES [facility] CLIA# [id number] [address] [place] [address] * (ABNORMAL) CBC WITH DIFFERENTIAL (12/26/2018 7:33 PM CDT) [facility] WBC 10.9(H) 4.0 - 9.8 K/uL 12/26/2018 [...] - 99.0 fL 12/26/2018 7:48 PM CDT [facility] LABORATORY SERVICES - . [facility] MCH 23.7(L) 27.2 - 32.6 pg 12/26/2018 7:48 PM CDT [facility] - . [facility] MCHC 29.8(L) 31.5 - 35.5 g/dL 12/26/2018 7:48 PM CDT [facility] SERVICES - . [facility] RDW 17.3(H) 11.5 - 14.5 % 12/26/2018 7:48 PM CDT [facility] SERVICES - . [facility] RDW-STDEV 49.6(H) 37.1 - 48.7 fL 12/26/2018 [...] EOSINOPHILS 1 % 12/26/2018 7:48 PM CDT [facility] LABORATORY SERVICES - [facility] BASOPHILS 1 % 12/26/2018 7:48 PM CDT [facility] LABORATORY SERVICES - [facility] IMMATURE GRANULOCYTES 0 % 12/26/2018 7:48 PM CDT [facility] LABORATORY SERVICES - [facility] NEUTROPHIL ABSOLUTE 7.03(H) 1.90 - 7.00 K/uL 12/26/2018 7:48 PM CDT [facility] LABORATORY SERVICES - [facility] LYMPHOCYTE ABSOLUTE 2.86 0.70 - 4.50 K/uL 12/26/2018 7:48 PM CDT [facility] LABORATORY SERVICES - [facility] MONOCYTE ABSOLUTE 0.76 0.10 - 1.30 K/uL 12/26/2018 7:48 PM CDT [facility] LABORATORY SERVICES - [facility] EOSINOPHIL ABSOLUTE 0.08 0.00 - 0.70 K/uL 12/26/2018 7:48 PM CDT [facility] LABORATORY SERVICES - [facility] BASOPHILS ABSOLUTE 0.11 0.00 - 0.20 K/uL 12/26/2018 7:48 PM CDT [facility] LABORATORY SERVICES - [facility] IMMATURE GRANULOCYTES ABSOLUTE 0.04(H) 0.00 - 0.03 K/uL 12/26/2018 7:48 PM CDT [facility] LABORATORY SERVICES - [facility] Blood Venipuncture / Unknown 12/26/2018 7:33 PM CDT 12/26/2018 7:38 PM CDT Binh Choudhury DO HEMATOLOGY ORDERABLE S [facility] Organization Address City/State/ZIP Co de Phone Number [facility] LABORATORY SERVICES - [facility]# [id number] [address] [place], [place] [address] [address] documented in this encounter Visit Diagnoses Diagnosis [...] at 1430, Routine 1430 (Given - Provider: Marichuy Pineda, ANTHONY) morphine 4 mg/mL injection 4 [...] Kaitlynn Dorantes RN)0810 (Rate Verify - Provider: Kaitlynn Dorantes RN)1630 (Bag Switched - Provider: Kaitlynn [...] Gladis Shay RN)1545 (Stopped - Provider: Gladis Sahy RN - Comment: dc'd for discharge home) [...] Routine documented in this encounter Care Teams Last Waxer Relationship Specialty Start Date End Date Isaiah Quiros MD [address] [place] [id number] PCP - General Internal Medicine 04/16/18 documented as of this encounter
--- OUTSIDE RECORDS SUMMARY | 2024-04-29 20:15 | XMS_ITS | Encounter Summary ---
Author Organization [facility] Healthcare Address [address] [place] [address] Care Team Providers Care Coding Clerk Name Role Phone Kumar CARRILLO MD, Cash Howard Unavailable [phone] Bhupinder Tobias MD Primary Care Provider [phone] Jorge Aguiar MD Unavailable [phone] Khoa Arias MD Unavailable [phone] Encounter Details Date Type Department Care Team (Late st Contact Info) Description 01/03/2023 Telephone [facility] [address] [place] [address] Zully Esquivel, RN Social History [...] file Legal Sex Female 9:[address] MECHANIC Gender Identity Female 08/14/2022 11:32 AM CDT [...] on filedocumented in this encounter Care Teams Coding Clerk Relationship Specialty Start Date End Date Bhupinder Tobias MD [address] [place] [address] PCP - General Internal Medicine 06/03/20 Cash Heath III, MD [address] [facility] [address] [place] [address] Rheumatology 04/12/17 Jorge Aguiar MD [address] [place] [address] Consulting Physician Urology 11/10/20 Khoa Arias MD [address] [place] [address] Referring Physician Gastroenterology 03/20/21 documented as of this encounter
--- OUTSIDE RECORDS SUMMARY | 2024-04-29 20:15 | XMS_ITS | Encounter Summary ---
Author Organization [facility] Address 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 (LYRICA) 100 mg Capsule Take 100 [...] - 100 U/L 07/23/2018 2:05 PM CDT [facility] LABORATORY [facility] Blood Venipuncture / Unknown 07/23/2018 12:52 PM CDT 07/23/2018 1:14 PM CDT Alex Mahajan MD CHEMISTRY ORDERA BLES Performing Organization Address [facility]/ZIP Co de Phone Number [facility] CLIA# [id number] [address] [place] [address] * (ABNORMAL) LIPASE (07/23/2018 12:52 PM CDT) LIPASE 116(H) 13 - 60 U/L 07/23/2018 2:05 PM CDT [facility] LABORATORY [facility] Blood Venipuncture / Unknown 07/23/2018 12:52 PM CDT 07/23/2018 1:14 PM CDT Alex Mahajan MD CHEMISTRY ORDERA BLES Performing Organization Address [facility]/ZIP Co de Phone Number [facility] CLIA# [id number] [address] [place] [address] * (ABNORMAL) CBC WITHOUT DIFFERENTIAL (07/23/2018 12:52 PM CDT) WBC 6.9 4.0 - 9.8 K/uL 07/23/2018 1:23 PM CDT [facility] LABORATORY [facility] RBC 4.85 3.90 - 4.90 M/uL 07/23/2018 1:23 PM CDT [facility] LABORATORY [facility] HEMOGLOBIN 11.7(L) 11.8 - 14.8 g/dL 07/23/2018 1:23 PM CDT [facility] LABORATORY SERVICES - . [facility] HEMATOCRIT 39.0 35.5 - 44.0 % 07/23/2018 1:23 PM CDT [facility] LABORATORY SERVICES - . [facility] MCV 80.4(L) 82.0 - 99.0 fL 07/23/2018 1:23 PM CDT [facility] LABORATORY SERVICES - . [facility] MCH 24.1(L) 27.2 - 32.6 pg 07/23/2018 1:23 PM CDT [facility] LABORATORY SERVICES - . [facility] MCHC 30.0(L) 31.5 - 35.5 g/dL 07/23/2018 1:23 PM CDT [facility] LABORATORY SERVICES - . [facility] PLATELETS 405(H) 140 - 350 K/uL 07/23/2018 1:23 PM CDT [facility] - . [facility] MPV 9.1(L) 9.3 - 12.4 fL 07/23/2018 1:23 PM CDT [facility] - . [facility] RDW 15.9(H) 11.5 - 14.5 % 07/23/2018 1:23 PM CDT [facility] - . [facility] RDW-STDEV 46.5 37.1 - 48.7 fL 07/23/2018 1:23 PM CDT [facility] - . [facility] Blood Venipuncture / Unknown 07/23/2018 12:52 PM CDT 07/23/2018 1:15 PM CDT Alex Mahajan MD HEMATOLOGY ORDER BOB [facility] - [facility]# [id number] [address] [place] [address] documented in this encounter Visit Diagnoses Diagnosis Intermittent generalized abdominal pain documented in this encounter Care Teams Circuit Court Clerk Relationship Specialty Start Date End Date Isaiah Quiros MD [id number] [place] [id number] PCP - General Internal Medicine 04/16/18 documented as of this encounter
--- OUTSIDE RECORDS SUMMARY | 2024-04-29 20:15 | XMS_ITS | Encounter Summary ---
Author Organization [facility] Address [address] [place] [address] Care Team Providers Care Sports Book Server Name Role Phone Isaiah Quiros MD Primary Care Provider [phone] Reason for Visit * Reason Comments Establish Care irregular bowels wit h bleeding heartburn abdominal pain hx diverticulitis Encounter Details Date Type Department Care Team (Latest Contact Info) Description 04/16/2018 7:30 AM EQUIPMENT PLANNER Office Visit [facility] Gastroenterology [place] [address] [facility] [facility] [address] [place] [address] Alex Mahajan MD [address] [facility] [address] [place] [address] 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 syndrome, unspecified type [...] Comments Blood Pressure 137/81 04/16/2018 7:51 AM EQUIPMENT PLANNER Pulse 103 04/16/2018 7:51 AM EQUIPMENT PLANNER Temperature - - Respiratory Rate - - Oxygen Saturation - - Inhaled Oxygen Concentration - - Weight 92.1 kg (203 lb) 04/16/2018 7:51 AM EQUIPMENT PLANNER Height 167.6 cm (5' 6 ) 04/16/2018 7:51 AM EQUIPMENT PLANNER Body Mass Index 32.77 04/16/2018 7:51 AM EQUIPMENT PLANNER documented in this encounter Progress Notes * [...] tablet, 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 Follow-up in 4-6 weeks if symptoms persist. PMENT PLANNER documented in this encounter Plan of Treatment Not on file documented as of this encounter Visit Diagnoses Diagnosis 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 syndrome, unspecified type- Primary Gastroesophageal reflux disease, esophagitis presence not specified documented in this encounter Care Teams Sports Book Server Relationship Specialty [place] [address] [place] [phone] PCP - General Internal Medicine 04/16/18 documented as of this encounter
--- OUTSIDE RECORDS SUMMARY | 2024-04-29 20:15 | XMS_ITS | Encounter Summary ---
Author Organization [facility] Address [address] [place] [address] Care Team Providers Care Statistical Clerk Advertising Name Role Phone Isaiah Quiros MD Primary Care Provider [phone] Reason for Visit * Reason Onset Date Comments Medication Refill Medication Refill 05/15/2019 Encounter Details Date Type Department Care Team (Late st Contact Info) Description 10/30/2018 Refill [facility] Gastroenterology [place] [address] [facility] [address] [place] [address] Alex Mahajan MD [address] [facility] [address] [place] [address] Intermittent generalized abdominal pain Social [...] pain documented in this encounter Care Teams Statistical Clerk Advertising Relationship Specialty Start Date End Date Isaiah Quiros MD [address] [place] [phone] PCP - General Internal Medicine 04/16/18 documented as of this encounter
--- OUTSIDE RECORDS SUMMARY | 2024-04-29 20:15 | XMS_ITS | Encounter Summary ---
Author Organization [facility] Healthcare Address [address] [place] [address] Care Team Providers Care Nick Setter Name Role Phone Kumar CARRILLO MD, Cash Howard Unavailable [phone] Bhupinder Tobias MD Primary Care Provider [phone] Jorge Aguiar MD Unavailable [phone] Khoa Arias MD Unavailable [phone] Reason for Visit * Reason Comments Abdominal Pain Encounter Details Date Type Department Care Team (Late st Contact Info) Description 07/03/2023 9:54 AM CDT - 07/03/2023 1:58 PM CDT Emergency [facility] Emergency Department [address] [place] [address] Toi Pickering MD [address] [facility] [address] [place] [address] Abdominal pain (Primary Dx) Discharge Disposition: Discharge [...] file Legal 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 Can't tell b/c she has orange stool.[place] stool been going on for two weeks. No change in diet or supplements. Fevers off and on 99-100, no chest pain, no shob. 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 Consider recollection by clean catch. Bacteria, ur Trace(A) [facility] Mucous, ur Present(A ) [facility] Urine 07/03/2023 9:33 AM CDT 07/03/2023 9:40 AM CDT Amarjit Restrepo MD LAB URINE ORDERABLES Final Result [facility] One [facility] Department [place] [address] * (ABNORMAL) Urinalysis reflex to microscopic (07/03/2023 9:33 AM CDT) Color, ur Yellow Yellow Clarity, ur Clear Clear [facility] Specific gravity, ur 1.025 1.003 - 1.030 [facility] pH, urine 6.0 [facility] Comment: Interpretive Data ? Urine pH is affected by diet, medications, systemic acid-base disturbances, and renal tubular function. ??pH may affect urinary stone formation. ??For example, urine pH below 6.0 may help reduce the tendency for calcium phosphate stones and pH greater than 6.0 may reduce the tendency for uric acid stone formation. Source: [facility] [place] Current Interpretive Data was last revised on 2017 Protein, ur ql Trace Negative [facility] Glucose, ur ql Negative Negative [facility] Ketones, ur Negative Negative [facility] Bilirubin, ur Negative Negative [facility] Blood, ur Negative Negative [facility] Urobilinogen, ur <2.0 <2.0 mg/dL [facility] Nitrite, ur Negative Negative [facility] Leukocyte esterase, ur Trace(A) Negative [facility] UA reflex comment Reflex to microscopic UA will be performed. [facility] Urine 07/03/2023 9:33 AM CDT 07/03/2023 9:40 AM CDT Amarjit Restrepo MD LAB URINE ORDERABLES Final Result Performing Organization Address City/State/[facility] Co de Phone Number [facility] One [facility] Department [place] [address] * eGFR (07/03/2023 9:26 AM CDT) eGFR [...] Restrepo MD LAB BLOOD ORDERABLES Final Result [facility] One [facility] Department [place] [address] * Differential, auto (07/03/2023 9:26 AM CDT) Pathologist [facility] Neutrophil abs 3.9 1.5 - 6.5 K/cumm Imm gran abs 0.0 0.0 - 0.1 K/cumm [facility] Lymphocyte abs 1.6 0.8 - 3.3 K/cumm [facility] Monocyte abs 0.4 0.2 - 0.8 K/cumm [facility] Eosinophil abs 0.1 0.0 - 0.5 K/cumm [facility] Basophil abs 0.1 0.0 - 0.1 K/cumm [facility] Neutrophil pct 64.2 % [facility] Comment: Interpretive Data Percent cell count reference ranges are not reported, since discordance with absolute values may lead to misinterpretation of CBC data. Current Interpretive Data was last revised on 2017. Imm gran pct 0.7 % [facility] Comment: Interpretive Data Percent cell count reference ranges are not reported, since discordance with absolute values may lead to misinterpretation of CBC data. Current Interpretive Data was last revised on 2017. Lymphocyte pct 27.0 % [facility] Comment: Interpretive Data Percent cell count reference ranges are not reported, since discordance with absolute values may lead to misinterpretation of CBC data. Current Interpretive Data was last revised on 2017. Monocyte pct 5.8 % [facility] Comment: Interpretive Data Percent cell count reference ranges are not reported, since discordance with absolute values may lead to misinterpretation of CBC data. Current Interpretive Data was last revised on 2017. Eosinophil pct 1.3 % [facility] Comment: Interpretive Data Percent cell count reference ranges are not reported, since discordance with absolute values may lead to misinterpretation of CBC data. Current Interpretive Data was last revised on 2017. Basophil pct 1.0 % [facility] Comment: Interpretive Data Percent cell count reference ranges are not reported, since discordance with absolute values may lead to misinterpretation of CBC data. Current Interpretive Data was last revised on 2017. Blood 07/03/2023 9:26 AM CDT 07/03/2023 9:41 AM CDT Amarjit Restrepo MD LAB BLOOD ORDERABLES Final Result Performing Organization Address City/[facility]/ZIP Co de Phone Number [facility] Department [place] [address] * Lipase (07/03/2023 9:26 AM CDT) Lipase 78 10 - 99 Units/L Blood (Blood, Venous) 07/03/2023 9:26 AM CDT 07/03/2023 9:41 AM CDT Amarjit Restrepo MD LAB BLOOD ORDERABLES Final Result Performing Organization Address City/[facility]/ZIP Co de Phone Number [facility] Department [place] [address] * (ABNORMAL) Comprehensive metabolic panel (07/03/2023 9:26 AM CDT) Sodium 141 135 - 145 mmol/L Potassium, pl 3.8 3.3 - 4.9 mmol/L [facility] Chloride 106 97 - 110 mmol/L [facility] CO2 27 22 - 32 mmol/L [facility] Anion gap 8 2 - 15 mmol/L [facility] BUN 10 6 - 25 mg/dL [facility] Creatinine 0.94 0.60 - 1.10 mg/dL [facility] Glucose 117 70 - 199 mg/dL [facility] Comment: Interpretive Data Fasting glucose >/= [...] 2022. Calcium 8.8 8.5 - 10.3 mg/dL [facility] Bilirubin, total 0.2 0.1 - 1.2 mg/dL [facility] Protein, pl 7.8 6.5 - 8.5 g/dL [facility] Albumin 4.1 3.5 - 5.0 g/dL [facility] Alk phos 81 40 - 130 Units/L [facility] ALT 51(H) 7 - 45 Units/L [facility] AST 48(H) 10 - 45 Units/L [facility] Blood 07/03/2023 9:26 AM CDT 07/03/2023 9:41 AM CDT us Amarjit Restrepo MD LAB BLOOD ORDERABLES Final Result [facility] One [facility] Department [place] [address] * (ABNORMAL) CBC with auto differential (07/03/2023 9:26 AM CDT) WBC 6.1 3.8 - 9.9 K/cumm Hgb 12.1 11.9 - 15.5 g/dL [facility] Hct 38.6 35.6 - 45.5 % [facility] Plt 300 150 - 400 K/cumm [facility] MPV 8.9(L) 9.1 - 12.3 fL [facility] RBC 4.70 3.90 - 5.20 M/cumm [facility] MCV 82.1 81.3 - 96.4 fL [facility] MCH 25.7(L) 27.1 - 33.3 pg [facility] MCHC 31.3(L) 32.3 - 35.7 g/dL [facility] RDW CV 15.6(H) 11.1 - 14.9 % [facility] RDW SD 46.5 35.7 - 48.1 fL [facility] NRBC abs 0.00 0.00 - 0.01 K/cumm [facility] Blood (Blood, Venous) 07/03/2023 9:26 AM CDT 07/03/2023 9:41 AM CDT us Amarjit Restrepo MD LAB BLOOD ORDERABLES Final Result [facility] One [facility] Department [place] [address] documented in this encounter Visit Diagnoses Diagnosis [...] 07/03/2023 documented in this encounter Care Teams Nick Setter Relationship Specialty Start Date End Date Bhupinder Tobias MD [address] [facility] [address] [place] [address] PCP - General Internal Medicine 06/03/20 Cash Heath III, MD [address] [facility] [address] [place] [address] Rheumatology 04/12/17 Jorge Aguiar MD [address] [facility] [address] [place] [address] Consulting Physician Urology 11/10/20 Khoa Arias MD [address] [facility] [address] [place] [address] Referring Physician Gastroenterology 03/20/21 documented as of this encounter
--- OUTSIDE RECORDS SUMMARY | 2024-04-29 20:15 | XMS_ITS | Encounter Summary ---
Author Organization [facility] Address [address] [place] [address] Care Team Providers Care Online Tutor Name Role Phone Isaiah Quiros MD Primary Care Provider [phone] Reason for Visit * Reason Comments Medication Refill Encounter Details Date Type Department Care Team (Late st Contact Info) Description 08/22/2018 Refill [facility] Gastroenterology [place] A [address] [facility] [address] [place] [address] Alex Mahajan MD [address] [facility] [address] [place] [address] Social History Tobacco Use Types [...] on filedocumented in this encounter Care Teams Online Tutor Relationship Specialty Start Date End Date Isaiah Quiros MD [address] [place] [address] PCP - General Internal Medicine 04/16/18 documented as of this encounter
--- OUTSIDE RECORDS SUMMARY | 2024-04-29 20:15 | XMS_ITS | Encounter Summary ---
Author Organization [facility] Address [address] [place] [address] Care Team Providers Care Kiln Feeder Name Role Phone Isaiah Quiros MD Primary Care Provider Reason for Visit * Reason Comments Follow Up ab pain Encounter Details Date Type Department Care Team (Latest Contact Info) Description 12/31/2018 11:15 AM CDT Office Visit [facility] Gastroenterology [place] A [address] [facility] [address] [place] [address] Alex Mahajan MD [address] 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 pregabalin (LYRICA) 100 [...] Primary documented in this encounter Care Teams Kiln Feeder Relationship Specialty Start Date End Date Isaiah Quiros MD [address] [place] [phone] PCP - General Internal Medicine 04/16/18 documented as of this encounter
--- OUTSIDE RECORDS SUMMARY | 2024-04-29 20:15 | XMS_ITS | Encounter Summary ---
Author Organization [facility] Address [address] [place] [address] Care Team Providers Care Fit Model Name Role Phone Isaiah Quiros MD Primary Care Provider [phone] Reason for Referral * MRI (Routine) - Closed Specialty Diagnoses / Procedures Referred By Contac t Referred To Contact MRI Diagnoses Elevated amylase and lipase Epigastric abdominal pain Procedures MRI MRCP W AND WO CONTRAST Alex Mahajan MD [address] [address] Referral ID Status Reason Start Date Expiration Date V isits Requested Visits Authorized [id number] Closed [facility] 08/06/2018 09/05/2018 1 1 Reason for Visit * MRI (Routine) - Closed Specialty Diagnoses / Procedures Referred By Contac jacqueline Referred To Contact MRI Diagnoses Elevated amylase and lipase Epigastric abdominal pain Procedures MRI MRCP W AND WO CONTRAST Alex Mahajan MD [address] [address] Referral ID Status Reason Start Date Expiration Date V isits Requested Visits Authorized [id number] Closed [facility] 08/06/2018 09/05/2018 1 1 Encounter Details Date Type Department Care Team (Latest Contact Info) Description 08/07/2018 6:52 AM CDT - 08/07/2018 11:59 PM CDT Hospital Encounter [facility] [address] [facility] [place] [address] Alex Mahajan MD [address] [facility] [address] [place] [address] Discharge Disposition: Home or Self [...] 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 Enter the protocol in the patient???s electronic health record using ReconRoboticsrase: .imagingctmriprotocol Communication Orders: o For ordered imaging [...] procedure. ??? If at any time the Board Design Engineer has a question about which option [...] oral. May use nasoenteric tube if needed. [place] to 3 months Administer up to 90mL [...] acute intra-abdominal abnormality identified. DICTATION LOCATION: Location [address] [place] [address] 08/07/2018 11:59 AM CDT EXAMINATION: MRI MRCP [...] abnormality identified. DICTATION LOCATION: Location 1 - [facility] Alex Mahajan MD MR ORDERABLES * EDUCATION MAGNETIC RESONANCE IMAGING (MRI) - [facility] (08/05/2018 2:28 PM CDT) Education Name MAGNETIC RESONANCE IMAGING (MRI) [employer] INTERFACE Education URL [email or web address] [employer] [employer] INTERFACE EDUCATION ACCESS CODE [id number] [facility] [employer] INTERFACE EDUCATION ISSUE DATE Aug [...] mL documented in this encounter Care Teams Fit Model Relationship Specialty Start Date End Date Isaiah Quiros MD [address] [place] [phone] PCP - General Internal Medicine 04/16/18 documented as of this encounter
--- OUTSIDE RECORDS SUMMARY | 2024-04-29 20:15 | XMS_ITS | Clinical Summary ---
Author Organization [place] [id number] [facility] Address [address] [place] [address] Phone Care Team Providers Care Medical Management Trainer Name Role Phone Kumar CARRILLO MD, John J. Unavailable [phone] Bhupinder Tobias MD Primary Care Provider [phone] Jorge Aguiar MD Unavailable [phone] Khoa Arias MD Unavailable [phone] Allergies No known active allergies Medications SUMAtriptan [...] (08/30/2021): Added automatically from request for surgery [id number] Abdominal pain 03/31/2021 Assessment & Plan (06/28/2021 10:08 AM BRIDGE CRANE OPERATOR): Recently dx with mild pancreatitis. Needs lipase/amylase rechecked. Still has some upper abd pain. Advised pt to f/u with GI also. Assessment & Plan (06/19/2021 8:52 AM BRIDGE CRANE OPERATOR): Had abd pain early this month, check amyl/lip and ua. Pain has resolved. Assessment & Plan (05/05/2021 10:13 PM BRIDGE CRANE OPERATOR): Having abd pain, bloating, constipation. On meds for IBS and also using suppositories to have BM. Incidental findings of mesenteric fat stranding (adenitis or panniculitis) on abd CT. Awaiting further eval by Dr. Arias. Assessment & Plan (03/31/2021 8:44 AM BRIDGE CRANE OPERATOR): Elevated lipase. Imuran stopped. Pt advised to [...] 04/23/2019 Assessment & Plan (03/24/2020 7:29 AM BRIDGE CRANE OPERATOR): Normal serum immunoglobulins. Assessment & Plan (01/21/2020 [...] immunoglobulins. Assessment & Plan (04/23/2019 1:46 PM BRIDGE CRANE OPERATOR): Check serum immunoglobulins. Osteoporosis without current pathological fractu re 09/18/2018 Assessment & Plan (08/10/2021 8:09 AM CDT): bds checked by pcp in past, is taking ca and vit d and pcp checked vit D and PTH per pt was wnl. Her pcp started her on alendronate 70mg po qweek. Taking ca + vit d 1200mg qd. Assessment & Plan (06/15/2021 10:46 AM BRIDGE CRANE OPERATOR): bds checked by pcp in past, is taking ca and vit d and pcp checked vit D and PTH per pt was wnl. Her pcp started her on alendronate 70mg po qweek. Taking ca + vit d 1200mg qd. Assessment & Plan (06/09/2021 8:30 AM BRIDGE CRANE OPERATOR): bds checked by pcp in past, is taking ca and vit d and pcp checked vit D and PTH per pt was wnl. Her pcp started her on alendronate 70mg po qweek. Taking ca + vit d 1200mg qd. Assessment & Plan (05/04/2021 8:19 AM BRIDGE CRANE OPERATOR): bds checked by pcp in past, is [...] qd. Assessment & Plan (06/03/2020 7:38 AM BRIDGE CRANE OPERATOR): bds checked by pcp in past, is taking ca and vit d and pcp checked vit D and PTH per pt was wnl. Her pcp started her on alendronate 70mg po qweek. Taking ca + vit d 1200mg qd. Assessment & Plan (03/25/2020 8:34 AM BRIDGE CRANE OPERATOR): bds checked by pcp in past, is taking ca and vit d and pcp checked vit D and PTH per pt was wnl. Her pcp started her on alendronate 70mg po qweek. Taking ca + vit d 1200mg qd. Assessment & Plan (03/24/2020 7:29 AM BRIDGE CRANE OPERATOR): bds checked by pcp in past, is [...] qd. Assessment & Plan (04/20/2019 4:56 PM BRIDGE CRANE OPERATOR): bds checked by pcp in past, is [...] pcp. Assessment & Plan (06/03/2020 7:37 AM BRIDGE CRANE OPERATOR): Was advised in past to get chest CT to r/o aortic aneurysm, to discuss with pcp. Assessment & Plan (03/25/2020 8:33 AM BRIDGE CRANE OPERATOR): Was advised in past to get chest CT to r/o aortic aneurysm, to discuss with pcp. Assessment & Plan (03/24/2020 7:29 AM BRIDGE CRANE OPERATOR): Was advised in past to get chest [...] pcp. Assessment & Plan (04/20/2019 4:57 PM BRIDGE CRANE OPERATOR): Advised to get chest CT to r/o aortic aneurysm, to discuss with pcp. Assessment & Plan (10/31/2018 7:38 AM CDT): Advised to get chest CT to r/o aortic aneurysm, to discuss with pcp. Encounter for long-term (current) use of medicat ions 01/31/2017 Assessment & Plan (05/28/2022 8:07 AM BRIDGE CRANE OPERATOR): Quant gold neg 12/2019 Hep B and [...] showed osteoporosis [facility] 08/2019---[facility] labs reveal positive anti-WEIGHT YARDAGE CHECKER antibody which is likely a false positive due to negative ASHLEY. Her father had psoriasis, pt changed from ra to PsA on 03/25/2020. ?? Assessment & Plan (02/26/2022 8:16 AM BRIDGE CRANE OPERATOR): Quant gold neg 12/2019 Hep B and [...] showed osteoporosis [facility] 08/2019---[facility] labs reveal positive anti-WEIGHT YARDAGE CHECKER antibody which is likely a false positive [...] showed osteoporosis [facility] 08/2019---[facility] labs reveal positive anti-WEIGHT YARDAGE CHECKER antibody which is likely a false positive [...] showed osteoporosis [facility] 08/2019---[facility] labs reveal positive anti-WEIGHT YARDAGE CHECKER antibody which is likely a false positive [...] showed osteoporosis [facility] 08/2019---[facility] labs reveal positive anti-WEIGHT YARDAGE CHECKER antibody which is likely a false positive [...] showed osteoporosis [facility] 08/2019---[facility] labs reveal positive anti-WEIGHT YARDAGE CHECKER antibody which is likely a false positive due to negative ASHLEY. Her father had psoriasis, pt changed from ra to PsA on 03/25/2020. ?? Assessment & Plan (06/28/2021 8:44 AM BRIDGE CRANE OPERATOR): Quant gold neg 12/2019 Hep B and [...] showed osteoporosis [facility] 08/2019---[facility] labs reveal positive anti-WEIGHT YARDAGE CHECKER antibody which is likely a false positive due to negative ASHLEY. Her father had psoriasis, pt changed from ra to PsA on 03/25/2020. ?? Assessment & Plan (06/15/2021 10:44 AM BRIDGE CRANE OPERATOR): Quant gold neg 12/2019 Hep B and [...] showed osteoporosis [facility] 08/2019---[facility] labs reveal positive anti-WEIGHT YARDAGE CHECKER antibody which is likely a false positive due to negative ASHLEY. Her father had psoriasis, pt changed from ra to PsA on 03/25/2020. ?? Assessment & Plan (06/09/2021 10:15 AM BRIDGE CRANE OPERATOR): Quant gold neg 12/2019 Hep B and [...] showed osteoporosis [facility] 08/2019---[facility] labs reveal positive anti-WEIGHT YARDAGE CHECKER antibody which is likely a false positive due to negative ASHLEY. Her father had psoriasis, pt changed from ra to PsA on 03/25/2020. ?? Assessment & Plan (06/09/2021 8:29 AM BRIDGE CRANE OPERATOR): Quant gold neg 12/2019 Hep B and [...] showed osteoporosis [facility] 08/2019---[facility] labs reveal positive anti-WEIGHT YARDAGE CHECKER antibody which is likely a false positive due to negative ASHLEY. Her father had psoriasis, pt changed from ra to PsA on 03/25/2020. ?? Assessment & Plan (05/04/2021 8:19 AM BRIDGE CRANE OPERATOR): Quant gold neg 12/2019 Hep B and [...] showed osteoporosis [facility] 08/2019---[facility] labs reveal positive anti-WEIGHT YARDAGE CHECKER antibody which is likely a false positive due to negative ASHLEY. Her father had psoriasis, pt changed from ra to PsA on 03/25/2020. ?? Assessment & Plan (03/31/2021 9:20 AM BRIDGE CRANE OPERATOR): Quant gold neg 12/2019 Hep B and [...] showed osteoporosis [facility] 08/2019---[facility] labs reveal positive anti-WEIGHT YARDAGE CHECKER antibody which is likely a false positive [...] showed osteoporosis [facility] 08/2019---[facility] labs reveal positive anti-WEIGHT YARDAGE CHECKER antibody which is likely a false positive [...] showed osteoporosis [facility] 08/2019---[facility] labs reveal positive anti-WEIGHT YARDAGE CHECKER antibody which is likely a false positive [...] showed osteoporosis [facility] 08/2019---[facility] labs reveal positive anti-WEIGHT YARDAGE CHECKER antibody which is likely a false positive [...] showed osteoporosis [facility] 08/2019---[facility] labs reveal positive anti-WEIGHT YARDAGE CHECKER antibody which is likely a false positive due to negative ASHLEY. Her father had psoriasis, pt changed from ra to PsA on 03/25/2020. ?? Assessment & Plan (06/03/2020 2:56 PM BRIDGE CRANE OPERATOR): Quant gold neg 12/2019 Hep B and [...] showed osteoporosis [facility] 08/2019---[facility] labs reveal positive anti-WEIGHT YARDAGE CHECKER antibody which is likely a false positive due to negative ASHLEY. Her father had psoriasis, pt changed from ra to PsA on 03/25/2020. ?? Assessment & Plan (03/25/2020 3:03 PM BRIDGE CRANE OPERATOR): Quant gold neg 12/2019 HLA B27 negative [...] showed osteoporosis [facility] 08/2019---[facility] labs reveal positive anti-WEIGHT YARDAGE CHECKER antibody which is likely a false positive due to negative ASHLEY. Her father had psoriasis, pt changed from ra to PsA on 03/25/2020. ?? Assessment & Plan (03/24/2020 7:28 AM BRIDGE CRANE OPERATOR): Quant gold neg 12/2019 HLA B27 negative [...] showed osteoporosis [facility] 08/2019---[facility] labs reveal positive anti-WEIGHT YARDAGE CHECKER antibody which is likely a false positive [...] showed osteoporosis [facility] 08/2019---[facility] labs reveal positive anti-WEIGHT YARDAGE CHECKER antibody which is likely a false positive [...] showed osteoporosis [facility] 08/2019---[facility] labs reveal positive anti-WEIGHT YARDAGE CHECKER antibody which is likely a false positive [...] showed osteoporosis [facility] 08/2019---[facility] labs reveal positive anti-WEIGHT YARDAGE CHECKER antibody which is likely a false positive [...] showed osteoporosis [facility] 08/2019---[facility] labs reveal positive anti-WEIGHT YARDAGE CHECKER antibody which is likely a false positive [...] showed osteoporosis [facility] 08/2019---[facility] labs reveal positive anti-WEIGHT YARDAGE CHECKER antibody which is likely a false positive [...] ?? Assessment & Plan (04/20/2019 4:59 PM BRIDGE CRANE OPERATOR): Quant gold neg 10/2018. TPMT nl 17 [...] 01/31/2017 Assessment & Plan (05/28/2022 8:05 AM BRIDGE CRANE OPERATOR): Images from the original note were not included. Had orencia infusion 05/02/2022. Continue orencia monotherapy. Off arava due to lipase elevation. Seeing gi at [facility] now. Meddybemps and egd utd and nl in past year per pt. Had a nl pancreatic US recently with gi. Past serologies: [facility] panel 08/2019---labs reveal positive anti-WEIGHT YARDAGE CHECKER antibody which is likely a false positive due to negative ASHLEY. ?? RF neg but has a possible family hx of psoriatic arthritis (father) so if she develops psoriasis diagnosis will change to psoriatic arthritis. Rt hand US 09/2019 showed: ??F/u 1 month. Assessment & Plan (02/26/2022 12:12 PM BRIDGE CRANE OPERATOR): Images from the original note were not included. High cdai. Her orencia is scheduled tomorrow. Continue orencia monotherapy. Off arava due to lipase elevation. Seeing gi at [facility] now. Meddybemps and egd utd and nl in past year per pt. Had a nl pancreatic US recently with gi. She could be flaring up since her orencia is due tomorrow, overall she still feels that it is helping her joints. Past serologies: [facility] panel 08/2019---labs reveal positive anti-WEIGHT YARDAGE CHECKER antibody which is likely a false positive [...] no complications or infections. Seeing gi at [facility] now for her elevated lipase. Meddybemps and egd utd and nl in past year per pt. If labs stable will restart low dose arava 10mg po every day. To stay off orencia until recovered from rt knee surgery. Past serologies: [facility] panel 08/2019---labs reveal positive anti-WEIGHT YARDAGE CHECKER antibody which is likely a false positive [...] orencia is scheduled tomorrow. Seeing gi at [facility] now. Meddybemps and egd utd and nl in past year per pt. Due to burden of dz will give her a short course of oral prednisone. Discussed risks and se of systemic steroids. Past serologies: [facility] panel 08/2019---labs reveal positive anti-WEIGHT YARDAGE CHECKER antibody which is likely a false positive [...] orencia is scheduled tomorrow. Seeing gi at [facility] now. Meddybemps and egd utd and nl in past year per pt. Due to burden of dz will give her a short course of oral prednisone. Discussed risks and se of systemic steroids. Past serologies: [facility] panel 08/2019---labs reveal positive anti-WEIGHT YARDAGE CHECKER antibody which is likely a false positive [...] gi dr arias for her pancreatitis . Meddybemps and egd utd and nl in past year per pt. Seen with dr woodruff today. Past serologies: [facility] panel 08/2019---labs reveal positive anti-WEIGHT YARDAGE CHECKER antibody which is likely a false positive due to negative ASHLEY. ?? RF neg but has a possible family hx of psoriatic arthritis (father) so if she develops psoriasis diagnosis will change to psoriatic arthritis. Rt hand US 09/2019 showed: ??F/u 1 month. Assessment & Plan (06/28/2021 10:22 AM BRIDGE CRANE OPERATOR): Images from the original note were not [...] Past serologies: [facility] panel 08/2019---labs reveal positive anti-WEIGHT YARDAGE CHECKER antibody which is likely a false positive due to negative ASHLEY. ?? RF neg but has a possible family hx of psoriatic arthritis (father) so if she develops psoriasis diagnosis will change to psoriatic arthritis. Rt hand US 09/2019 showed: ??F/u 1 month. Assessment & Plan (06/15/2021 10:46 AM BRIDGE CRANE OPERATOR): Images from the original note were not [...] Past serologies: [facility] panel 08/2019---labs reveal positive anti-WEIGHT YARDAGE CHECKER antibody which is likely a false positive due to negative ASHLEY. ?? RF neg but has a possible family hx of psoriatic arthritis (father) so if she develops psoriasis diagnosis will change to psoriatic arthritis. Rt hand US 09/2019 showed: ??F/u 1 month. Assessment & Plan (06/09/2021 10:16 AM BRIDGE CRANE OPERATOR): Images from the original note were not [...] Past serologies: [facility] panel 08/2019---labs reveal positive anti-WEIGHT YARDAGE CHECKER antibody which is likely a false positive due to negative ASHLEY. ?? RF neg but has a possible family hx of psoriatic arthritis (father) so if she develops psoriasis diagnosis will change to psoriatic arthritis. Rt hand US 09/2019 showed: ??F/u 1 month. Assessment & Plan (06/09/2021 8:29 AM BRIDGE CRANE OPERATOR): Images from the original note were not included. On arava 10mg po daily and continues on IV Orencia. Will check labs and try going to 20mg of the leflunomide. Seen with dr wodoruff today. Is following up with GI Dr. Arias regarding abd pain and constipation, and recent incidental findings of mesenteric fat stranding, possible adenitis or panniculitis on abd CT (done for kidney stones). Past serologies: [facility] panel 08/2019---labs reveal positive anti-WEIGHT YARDAGE CHECKER antibody which is likely a false positive due to negative ASHLEY. ?? RF neg but has a possible family hx of psoriatic arthritis (father) so if she develops psoriasis diagnosis will change to psoriatic arthritis. Rt hand US 09/2019 showed: ??F/u 1 month. Assessment & Plan (05/05/2021 10:11 PM BRIDGE CRANE OPERATOR): Images from the original note were not [...] Past serologies: [facility] panel 08/2019---labs reveal positive anti-WEIGHT YARDAGE CHECKER antibody which is likely a false positive due to negative ASHLEY. ?? RF neg but has a possible family hx of psoriatic arthritis (father) so if she develops psoriasis diagnosis will change to psoriatic arthritis. Rt hand US 09/2019 showed: ??F/u 1 month. Assessment & Plan (03/31/2021 9:24 AM BRIDGE CRANE OPERATOR): Images from the original note were not [...] Past serologies: [facility] panel 08/2019---labs reveal positive anti-WEIGHT YARDAGE CHECKER antibody which is likely a false positive [...] Past serologies: [facility] panel 08/2019---labs reveal positive anti-WEIGHT YARDAGE CHECKER antibody which is likely a false positive [...] Past serologies: [facility] panel 08/2019---labs reveal positive anti-WEIGHT YARDAGE CHECKER antibody which is likely a false positive due to negative ASHLYE. ?? RF neg but has a possible [...] Past serologies: [facility] panel 08/2019---labs reveal positive anti-WEIGHT YARDAGE CHECKER antibody which is likely a false positive [...] Past serologies: [facility] panel 08/2019---labs reveal positive anti-WEIGHT YARDAGE CHECKER antibody which is likely a false positive due to negative ASHLEY. ?? RF neg but has a possible family hx of psoriatic arthritis (father) so if she develops psoriasis diagnosis will change to psoriatic arthritis. Rt hand US 09/2019 showed: ?? Assessment & Plan (06/03/2020 5:27 PM BRIDGE CRANE OPERATOR): Images from the original note were not [...] Past serologies: [facility] panel 08/2019---labs reveal positive anti-WEIGHT YARDAGE CHECKER antibody which is likely a false positive due to negative ASHLEY. ?? RF neg but has a possible family hx of psoriatic arthritis (father) so if she develops psoriasis diagnosis will change to psoriatic arthritis. Rt hand US 09/2019 showed: ?? Assessment & Plan (03/25/2020 3:01 PM BRIDGE CRANE OPERATOR): Images from the original note were not [...] Past serologies: [facility] panel 08/2019---labs reveal positive anti-WEIGHT YARDAGE CHECKER antibody which is likely a false positive due to negative ASHLEY. ?? RF neg but has a possible family hx of psoriatic arthritis (father) so if she develops psoriasis diagnosis will change to psoriatic arthritis. Rt hand US 09/2019 showed: ?? Assessment & Plan (03/24/2020 7:29 AM BRIDGE CRANE OPERATOR): Images from the original note were not included. [place] ai Wants to go back to sq orencia, gave pt 1 mo of samples and will start approval. Can't come in for iv orencia, her dad is on hospice. Increase imuran to 100mg bid, check cbc/cmp in 2 weeks and f/u in 1month. Past serologies: [facility] panel 08/2019---labs reveal positive anti-WEIGHT YARDAGE CHECKER antibody which is likely a false positive [...] Past serologies: [facility] panel 08/2019---labs reveal positive anti-WEIGHT YARDAGE CHECKER antibody which is likely a false positive [...] Past serologies: [facility] panel 08/2019---labs reveal positive anti-WEIGHT YARDAGE CHECKER antibody which is likely a false positive [...] every day. [facility] panel 08/2019---labs reveal positive anti-WEIGHT YARDAGE CHECKER antibody which is likely a false positive due to negative ASHLEY. ??Otherwise labs look good. ??No evidence of a new autoimmune connective tissue disease. Cont orencia sq and imuran 100mg po qhs. [place] better on iv orencia, will change from [...] since resolved. [facility] panel 08/2019---labs reveal positive anti-WEIGHT YARDAGE CHECKER antibody which is likely a false positive [...] of orencia. [facility] panel 08/2019---labs reveal positive anti-WEIGHT YARDAGE CHECKER antibody which is likely a false positive [...] of orencia. [facility] panel 08/2019---labs reveal positive anti-WEIGHT YARDAGE CHECKER antibody which is likely a false positive [...] ?? Assessment & Plan (04/23/2019 1:46 PM BRIDGE CRANE OPERATOR): High cdai. On orencia IV but has [...] citrate. Assessment & Plan (06/03/2020 2:56 PM BRIDGE CRANE OPERATOR): Multiple kidney stones for over 10 yrs, [...] Sister 2 Michelle Abdirahman Arthritis Maternal Grandfather Liv[place] Foster Cancer Maternal Grandfather [place] Foster Arthritis Maternal Grandmother Ondina Foster Cancer [...] on file Legal Sex Female 9:24 PM BRIDGE CRANE OPERATOR Gender Identity Female 08/14/2022 11:32 [...] HEPATITIS C AB Routine 06/29/2015 2:43 PM BRIDGE CRANE OPERATOR from Last 3 Months or Most Recently Relevant to Health Maintenance Results * ThinPrep Pap with HPV (12/24/2018 3:41 PM CDT) 12/24/2018 3:41 PM CDT 12/25/2018 8:54 AM CDT Narrative [facility] - 12/26/2018 2:53 PM CDT [facility] Department of Pathology [address] [place] [id number] Final Report with Addendum Patient Name: ??CAMACHOJULIAN Address: ??[address] [place] [address], ?? [place], [place] [address] Gender: ??F : ??1975 (Age: 43) Service: ??Laboratory Location: ??Lab Hospital #: ??[id number] Patient Type: ?? Ref Lab Taken: ??12/24/2018 Received: ??12/25/2018 Accessioned:: ??12/26/2018 Reported: ??12/26/2018 Physician(s): Curtis Oseguera M.D. [facility] Diagnosis: Source of Specimen: ? SCREENING [...] determined by the Surgical Pathology Department at [facility] as part of an ongoing quality improvement engineer program and in compliance with federally mandated [...] characteristics determined by the Surgical Pathology Department [facility]. ??It has not been cleared or approved by the U. S. Food and Drug Administration. Curtis Oseguera MD LAB CYTOLOGY ORDERABLES Final Result [facility] [address] [place], [place] [id number] [place] [address] * Serum Hepatitis C ab (06/29/2015 2:43 PM BRIDGE CRANE OPERATOR) HCV ab Non-Reacti ve Non-Reacti ve HISTORICAL RESULTS Serum 06/29/2015 2:43 PM BRIDGE CRANE OPERATOR Miriam VALLE LAB BLOOD ORDERAB LES Final Result HISTORICAL RESULTS from Last 3 Months or Most Recently Relevant to Health Maintenance Insurance Algramo PA Algramo PA Algramo PA Algramo PA Care Teams Medical Management Trainer Relationship Specialty Start Date End Date Bhupinder Tobias MD [address] [facility] [address] [place] [address] PCP - General Internal Medicine 06/03/20 Cash Woodruff III, MD [address] [facility] [address] [place] [address] Rheumatology 04/12/17 Jorge Aguiar MD [address] [facility] [address] [facility] [address] [place] [address] Consulting Physician Urology 11/10/20 Khoa Arias MD [address] [facility] [address] [place] [address] Referring Physician Gastroenterology 03/20/21
--- OUTSIDE RECORDS SUMMARY | 2024-04-29 20:15 | XMS_ITS | Encounter Summary ---
Author Organization [facility] Address [address] [place] [address] Care Team Providers Care Derrick Helper Name Role Phone Isaiah Quiros MD Primary Care Provider [phone] Reason for Referral * MRI (Routine) - Closed Specialty Diagnoses / Procedures Referred By Contac t Referred To Contact MRI Diagnoses Elevated amylase and lipase Epigastric abdominal pain Procedures MRI MRCP W AND WO CONTRAST Alex Mahajan MD [address] [address] Referral ID Status Reason Start Date Expiration Date V isits Requested Visits Authorized [id number] Closed [facility] CTS 08/06/2018 09/05/2018 1 1 Encounter Details Date Type Department Care Team (Latest Contact Info) Description 07/28/2018 Orders Only [facility] Gastroenterology [place] A [address] [facility] [address] [place] [address] Alex Mahajan MD [address] [facility] [address] [place] [address] Elevated amylase and lipase (Primary [...] abnormality identified. DICTATION LOCATION: Location 1 - [facility] Narrative 08/07/2018 11:59 AM CDT EXAMINATION: MRI [...] abnormality identified. DICTATION LOCATION: Location 1 - [facility] Alex Mahajan MD MR ORDERABLES documented in this encounter Visit Diagnoses Diagnosis Elevated amylase and lipase- Primary Other nonspecific abnormal serum enzyme levels Epigastric abdominal pain Abdominal pain, epigastric Elevated amylase and lipase Other nonspecific abnormal serum enzyme levels Epigastric abdominal pain Abdominal pain, epigastric documented in this encounter Care Teams Derrick Helper Relationship Specialty Start Date End Date Isaiah Quiros MD [address] [place] [address] PCP - General Internal Medicine 04/16/18 documented as of this encounter
--- OUTSIDE RECORDS SUMMARY | 2024-04-29 20:15 | XMS_ITS | Encounter Summary ---
Author Organization [facility] Address [address] [place] [address] Care Team Providers Care Pricing Consultant Name Role Phone Isaiah Quiros MD Primary Care Provider [phone] Reason for Visit * Reason Onset Date Comments Abdominal Pain 12/26/2018 Encounter Details Date Type Department Care Team (Late st Contact Info) Description 12/26/2018 Telephone [facility] Gastroenterology [place] A [address] [place] [address] Alex Mahajan MD [address] [facility] [address] [place] [address] Abdominal Pain Social History Tobacco [...] sent to us (seen at hospital in [place]). She was seen 08/02 for same issues and had test on 08/07. Keyshawn reviewed results and has f/u 01/07. She has follow up on 01/07. documented in this encounter Plan of Treatment Not on file documented as of this encounter Visit Diagnoses Not on filedocumented in this encounter Care Teams Pricing Consultant Relationship Specialty Start Date End Date Isaiah Quiros MD [address] [place] [address] PCP - General Internal Medicine 04/16/18 documented as of this encounter
--- OUTSIDE RECORDS SUMMARY | 2024-04-29 20:15 | XMS_ITS | Encounter Summary ---
Author Organization [facility] Address [address] [place] [address] Care Team Providers Care Oven Roaster Name Role Phone Isaiah Quiros MD Primary Care Provider [phone] Reason for Visit * Reason Onset Date Comments Medication Refill Medication Refill 10/26/2019 Encounter Details Date Type Department Care Team (Late st Contact Info) Description 10/22/2019 Refill [facility] Gastroenterology [place] A [address] [place] [address] Alex Mahajan MD [address] [facility] [address] [place] [address] 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 syndrome with both [...] Miscellaneous Notes * Telephone Encounter - Earnestine Fu LPN - 10/26/2019 7:29 AM CDT Need to verify if taking linzess or amitiza documented in this encounter Plan of Treatment Not on file documented as of this encounter Visit Diagnoses Diagnosis 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 syndrome with both constipation and diarrhea documented in this encounter Care Teams Oven Roaster Relationship Specialty Start Date End Date Isaiah Quiros MD [address] [place] [address] PCP - General Internal Medicine 04/16/18 documented as of this encounter
--- OUTSIDE RECORDS SUMMARY | 2024-04-29 20:15 | XMS_ITS | Continuity of Care Document ---
Author Organization [facility] Address [address] [place] [address] Phone Care Team Providers Care Director Business Management Name Role Phone Amadeo Arias MD Unavailable [...] Copied on Encounter OFFICE/OUTPAT IENT VISIT EST [facility], [address] [address], [place], [address], tel:[phone] [facility] Wall Patellofemoral instability, rightOther specified sprain of right wrist, initial encounter 0 6 Hugo Childs. [address], [place], [place], [id number] . tel: [phone] [facility], [address] [facility] [facility] [address], [place], [address], [place] tel:[phone] [facility] Acute bilateral low back pain without sciaticaLeft hip painArthralgia of right hipPatellofemo ral instability, leftPatellofem oral instability, right 6 Hugo Childs. [address], [place], [place], [id number] . tel: [phone] OFFICE CONSULTATION [facility], [address] [facility] [address], [place], [address], tel:[phone] [facility] Wall Patellofemoral instability, rightPatellofe moral instability, leftArthralgia of right hipLeft hip painAcute bilateral low back pain without sciatica 201 6 Hugo Childs. [address], [place], [place], [id number] . tel: [phone] Referring Provider: Michelle De La Torre[address], [place], [address] . tel:[phone] Family History Family Member Type Diagnosis Age At Onset Sister Problem (finding) Alive and well Payers Payer name Insurance type Covered republican ID Authoriza tion(s) [facility] Choice/Choice Plus [id number] Social History Type Description Quantity Date Captured [...]
--- OUTSIDE RECORDS SUMMARY | 2024-04-29 20:15 | XMS_ITS | Encounter Summary ---
Author Organization [facility] Address [address] [place] [address] Care Team Providers Care Complaint Operator Name Role Phone Isaiah Quiros MD Primary Care Provider [phone] Reason for Visit * Reason Comments Medication Refill Encounter Details Date Type Department Care Team (Late st Contact Info) Description 09/17/2019 Refill [facility] Gastroenterology [place] A [address] [address] [facility] [facility] [address] [place] [address] Alex Mahajan MD [address] [facility] [address] [place] [address] Intermittent generalized abdominal pain Social [...] pain documented in this encounter Care Teams Complaint Operator Relationship Specialty Start Date End Date Isaiah Quiros MD [address] [place] [address] PCP - General Internal Medicine 04/16/18 documented as of this encounter
--- OUTSIDE RECORDS SUMMARY | 2024-04-29 20:15 | XMS_ITS | Encounter Summary ---
Author Organization [facility] Address [address] [place] [address] Care Team Providers Care Rehab Therapist Name Role Phone Kumar CARRILLO MD, Cash oHward Unavailable Bhupinder Tobias MD Primary Care Provider [phone] Jorge Aguiar MD Unavailable [phone] Khoa Arias MD Unavailable [phone] Reason for Visit * Reason Comments Shortness of Breath Sore Throat Encounter Details Date Type Department Care Team (Late st Contact Info) Description 08/21/2022 10:19 PM CDT - 08/22/2022 3:40 AM CDT Emergency [facility] Emergency Department [address] [place] [address] Pramod Vargas MD [address] [facility] [address] [place] [address] Abdominal pain (Primary Dx); Shortness of breath [...] on file 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 RA (rheumatoid arthritis) ([facility]) Past Surgical History: Procedure Laterality Date ??? [...] Psychiatric: Mood and Affect: Mood is anxious. [facility] Medical Decision Making Madalyn Smith [...] Course as of 08/22/22 0304 Time: 08/21 9710 Comment: 47 yo F c/o sob past night, h/o meredith danlos, migraines, diverticulitis/abx courses, IBS,sob/sore throat after last night has reflux/aspiration events recurred last night. 7 times emesis since last night and chronic abd pain/n/v unchanged, no chest pain. 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 Exam nad/not [...] appointment in a few weeks. Plan for [place] and sucralfate here and then reassess. Anticipate [...] diagnosis found. Criss Vizcarra MD Resident 08/21/22 8541 Cosigned by Pramod Vargas MD at 08/22/2022 [...] arrival: Car Comments: Ekta Dewitt RN 08/21/22 9235 * Mary Marks RN - 08/21/2022 5:56 [...] Course as of 08/22/22 0815 Time: 08/21 2918 Comment: 47 yo F c/o sob past night, h/o meredith danlos, migraines, diverticulitis/abx courses, IBS,sob/sore throat after last night has reflux/aspiration events recurred last night. 7 times emesis since last night and chronic abd pain/n/v unchanged, no chest pain. 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 Exam nad/not [...] appointment in a few weeks. Plan for [place] and sucralfate here and then reassess. Anticipate [...] rapid HIV (08/21/2022 11:57 PM CDT) [facility] Rapid HIV, POC Negative Negative Lot Number [id number] QC Control Line Acceptable Blood 08/21/2022 11:5 7 PM CDT Pramod Vargas MD POINT OF CARE [facility] ORDERABLES Final Result * (ABNORMAL) eGFR (08/21/2022 11:00 PM CDT) [facility] eGFR 61(L) 90 - 130 mL/min/1. 73 m2 [facility] Comment: Interpretive Data Reference Interval Normal [...] MD LAB BLOOD ORDERABLES Abigail wahl Result [facility] Department [place] [address] * (ABNORMAL) Differential, auto (08/21/2022 11:00 PM CDT) Neutrophil abs 5.7 1.7 - 6.5 K/cumm [facility] Imm gran abs 0.1 0.0 - 0.1 K/cumm [facility] Lymphocyte abs 0.7(L) 0.8 - 3.3 K/cumm [facility] Monocyte abs 0.6 0.2 - 0.8 K/cumm [facility] Eosinophil abs 0.1 0.0 - 0.5 K/cumm [facility] Basophil abs 0.0 0.0 - 0.1 K/cumm [facility] Neutrophil pct 79.5 % [facility] Comment: Interpretive Data Percent cell count reference ranges are not reported, since discordance with absolute values may lead to misinterpretation of CBC data. Current Interpretive Data was last revised on 2017. Imm gran pct 0.7 % [facility] Comment: Interpretive Data Percent cell count reference ranges are not reported, since discordance with absolute values may lead to misinterpretation of CBC data. Current Interpretive Data was last revised on 2017. Lymphocyte pct 10.0 % [facility] Comment: Interpretive Data Percent cell count reference ranges are not reported, since discordance with absolute values may lead to misinterpretation of CBC data. Current Interpretive Data was last revised on 2017. Monocyte pct 7.9 % [facility] Comment: Interpretive Data Percent cell count reference ranges are not reported, since discordance with absolute values may lead to misinterpretation of CBC data. Current Interpretive Data was last revised on 2017. Eosinophil pct 1.3 % [facility] Comment: Interpretive Data Percent cell count reference ranges are not reported, since discordance with absolute values may lead to misinterpretation of CBC data. Current Interpretive Data was last revised on 2017. Basophil pct 0.6 % [facility] Comment: Interpretive Data Percent cell count reference ranges are not reported, since discordance with absolute values may lead to misinterpretation of CBC data. Current Interpretive Data was last revised on 2017. Blood 08/21/2022 11:0 0 PM CDT 08/21/2022 11:19 PM CDT Criss Vizcarra MD LAB BLOOD ORDERABLES Abigail wahl Result [facility] [address] [facility] Department [place] [address] * (ABNORMAL) Comprehensive metabolic panel (08/21/2022 11:00 PM CDT) Sodium 136 135 - 145 mmol/L [facility] Potassium, pl 3.7 3.3 - 4.9 mmol/L [facility] Chloride 101 97 - 110 mmol/L [facility] CO2 26 22 - 32 mmol/L [facility] Anion gap 9 2 - 15 mmol/L [facility] BUN 10 8 - 25 mg/dL [facility] Creatinine 1.12(H) 0.60 - 1.10 mg/dL [facility] Glucose 83 70 - 199 mg/dL [facility] Comment: Interpretive Data Fasting glucose >/= [...] 2022. Calcium 8.6 8.5 - 10.3 mg/dL [facility] Bilirubin, total 0.4 0.1 - 1.2 mg/dL [facility] Protein, pl 7.0 6.5 - 8.5 g/dL [facility] Albumin 3.9 3.5 - 5.0 g/dL [facility] Alk phos 91 40 - 130 Units/L [facility] ALT 28 7 - 45 Units/L [facility] AST 29 10 - 45 Units/L [facility] Blood 08/21/2022 11:0 0 PM CDT 08/21/2022 11:19 PM CDT Criss Vizcarra MD LAB BLOOD ORDERABLES Abigail wahl Result [facility] Department [place] [address] * (ABNORMAL) CBC with auto differential (08/21/2022 11:00 PM CDT) Pathologist [facility] WBC 7.1 3.8 - 9.9 K/cumm [facility] Hgb 11.2(L) 11.9 - 15.5 g/dL [facility] Hct 35.5(L) 35.6 - 45.5 % [facility] Plt 255 150 - 400 K/cumm [facility] MPV 9.0(L) 9.1 - 12.3 fL [facility] RBC 4.26 3.90 - 5.20 M/cumm [facility] MCV 83.3 81.3 - 96.4 fL [facility] MCH 26.3(L) 27.1 - 33.3 pg [facility] MCHC 31.5(L) 32.3 - 35.7 g/dL [facility] RDW CV 14.5 11.1 - 14.9 % [facility] RDW SD 43.7 35.7 - 48.1 fL [facility] NRBC abs 0.00 0.00 - 0.01 K/cumm [facility] Blood 08/21/2022 11:0 0 PM CDT 08/21/2022 11:19 PM CDT Criss Vizcarra MD LAB BLOOD ORDERABLES Abigail l Result Performing Organization Address City/State/[facility] Co de Phone Number [facility] Department [place] [address] * XR Chest Pa Lateral 2 Vw [...] Normal cardiomediastinal silhouette. Dictated by: Mark Anthony hTorne MD The radiology attending physician has personally [...] Dose Rate Site al & mag hydroxide mpwrxheztua-gsbszwbsk-pffbcf mine oral suspension mixture 45 mL, oral, [...] 08/20/2022 08/21/2022 08/22/2022 al & mag hydroxide xhmzwitxdad-fsqnjbxqi-upmkgu mine oral suspension mixture (COMPLETED) 45 mL, [...] RN) documented in this encounter Care Teams Rehab Therapist Relationship Specialty Start Date End Date Bhupinder Tobias MD [address] [place] [address] PCP - General Internal Medicine 06/03/20 Cash Heath III, MD [address] [place] [address] Rheumatology 04/12/17 Jorge Aguiar MD [address] [place], [place] [address] Consulting Physician Urology 11/10/20 Khoa Arias MD [address] [place] [address] Referring Physician Gastroenterology 03/20/21 documented as of this encounter
--- OUTSIDE RECORDS SUMMARY | 2024-04-29 20:15 | XMS_ITS | Encounter Summary ---
Author Organization [facility] Address [address] [place] [address] Care Team Providers Care Flight Test Supervisor Name Role Phone Isaiah Quiros MD Primary Care Provider [phone] Reason for Visit * Reason Comments Medication Refill Encounter Details Date Type Department Care Team (Late st Contact Info) Description 12/12/2018 Refill [facility] Gastroenterology [place] A [address] [facility] [address] [place] [address] Alex Mahajan MD [address] [facility] [address] [place] [address] Social History Tobacco Use Types [...] filedocumented in this encounter Care Teams Flight Test Supervisor Relationship Specialty Start Date End Date Isaiah Quiros MD [address] [place] [address] PCP - General Internal Medicine 04/16/18 documented as of this encounter
--- OUTSIDE RECORDS SUMMARY | 2024-04-29 20:15 | XMS_ITS | Encounter Summary ---
Author Organization [facility] Address [address] [place] [address] Phone Care Team Providers Care Water Safety Instructor Name Role Phone Kumar CARRILLO MD, Cash Howard Unavailable [phone] Bhupinder Tobias MD Primary Care Provider [phone] Jorge Aguiar MD Unavailable [phone] Khoa Arias MD Unavailable [phone] Encounter Details Date Type Department Care Team (Late st Contact Info) Description 01/17/2023 Orders Only [facility] - 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 Identity Female 08/14/2022 11:32 AM [...] 12/25/2022 added in this encounter Care Teams Water Safety Instructor Relationship Specialty Start Date End Date Bhupinder Tobias MD [address] [place] [address] PCP - General Internal Medicine 06/03/20 Cash Heath III, MD [address] [place] [address] Rheumatology 04/12/17 Jorge Aguiar MD [address] [facility] [address] [place] [address] Consulting Physician Urology 11/10/20 Khoa Arias MD [address] [facility] [address] [place] [address] Referring Physician Gastroenterology 03/20/21 documented as of this encounter
--- OUTSIDE RECORDS SUMMARY | 2024-04-29 20:15 | XMS_ITS | Encounter Summary ---
Author Organization [facility] Address [address] [place] [address] Care Team Providers Care Credit Assistant Name Role Phone Isaiah Quiros MD Primary Care Provider [phone] Encounter Details Date Type Department Care Team (Late st Contact Info) Description 07/23/2018 Orders Only [facility] Admitting [address] [place] [address] Alex Mahajan MD [address] [facility] [address] [place] [address] Social History Tobacco Use Types [...] on filedocumented in this encounter Care Teams Credit Assistant Relationship Specialty Start Date End Date Isaiah Quiros MD [address] [place] [address] PCP - General Internal Medicine 04/16/18 documented as of this encounter
--- OUTSIDE RECORDS SUMMARY | 2024-04-29 20:15 | XMS_ITS | Encounter Summary ---
Author Organization [facility] Address [address] [place] [address] Care Team Providers Care Radiation Protection Technician Name Role Phone Isaiah Quiros MD Primary Care Provider [phone] Encounter Details Date Type Department Care Team (Latest Contact Info) Description 01/16/[address] [facility] Gastroenterology [place] A [address] [place] [address] Alex Mahajan MD [address] [facility] [address] [place] [address] Intermittent generalized abdominal pain Social [...] pain documented in this encounter Care Teams Radiation Protection Technician Relationship Specialty Start Date End Date Isaiah Quiros MD [address] [place] [address] PCP - General Internal Medicine 04/16/18 documented as of this encounter
--- OUTSIDE RECORDS SUMMARY | 2024-04-29 20:15 | XMS_ITS | Encounter Summary ---
Author Organization [facility] Address [address] [place] [address] Care Team Providers Care Racing Secretary Name Role Phone Isaiah Quiros MD Primary Care Provider [phone] Reason for Visit * Reason Comments Medication Refill Encounter Details Date Type Department Care Team (Late st Contact Info) Description 03/20/2019 Refill [facility] Gastroenterology [place] A [address] [facility] [address] [place] [address] Alex Mahajan MD [address] [facility] [address] [place] [address] Intermittent generalized abdominal pain Social [...] pain documented in this encounter Care Teams Racing Secretary Relationship Specialty Start Date End Date Isaiah Quiros MD [address] [place] [address] PCP - General Internal Medicine 04/16/18 documented as of this encounter
--- OUTSIDE RECORDS SUMMARY | 2024-04-29 20:15 | XMS_ITS | Encounter Summary ---
Author Organization [facility] Address [address] [place] [address] Care Team Providers Care Machining Manager Name Role Phone Isaiah Quiros MD Primary Care Provider [phone] Reason for Visit * Reason Comments Medication Refill Encounter Details Date Type Department Care Team (Late st Contact Info) Description 06/03/2019 Refill [facility] Gastroenterology [place] A [address] [facility] [address] [place] [address] Alex Mahajan MD [address] [facility] [address] [place] [address] Intermittent generalized abdominal pain Social [...] pain documented in this encounter Care Teams Machining Manager Relationship Specialty Start Date End Date Isaiah Quiros MD [address] [place] [address] PCP - General Internal Medicine 04/16/18 documented as of this encounter
--- OUTSIDE RECORDS SUMMARY | 2024-04-29 20:16 | XMS_ITS | Encounter Summary ---
Author Organization [facility] Address [address] [place] [address] Phone Care Team Providers Care Agile Java Developer Name Role Phone Kumar CARRILLO MD, Cash Howard Unavailable [phone] Bhupinder Tobias MD Primary Care Provider [phone] Jorge Aguiar MD Unavailable [phone] Khoa Arias MD Unavailable [phone] Encounter Details Date Type Department Care Team (Late st Contact Info) Description 03/31/2021 8:45 AM RN PLACEMENT Office Visit [facility] [address] [place] [address] Miriam Frye PA [address] [place] [address] Psoriatic arthritis (CMS/HCC) (HCC) (Primary Dx); [...] on file Legal Sex Female 9:24 PM RN PLACEMENT Gender Identity Female 08/14/2022 11:32 AM CDT Sexual Orientation Straight 02/13/2023 7: 01 AM CDT documented as of this encounter Last Filed Vital Signs Vital Sign Reading Time Taken Comments Blood Pressure 134/82 03/31/2021 8:43 AM RN PLACEMENT Pulse 99 03/31/2021 8:43 AM RN PLACEMENT Temperature 36.5 ??C (97.7 ??F) 03/31/2021 8:43 AM CS T Respiratory Rate - - Oxygen Saturation 98% 03/31/2021 8:43 AM RN PLACEMENT Inhaled Oxygen Concentration - - Weight 88.2 kg (194 lb 6.4 oz) 03/31/2021 8:43 A M RN PLACEMENT Height - - Body Mass Index 31.38 06/03/2020 3:14 PM RN PLACEMENT documented in this encounter Patient Instructions * Patient Instructions* Miriam Frye PA - 03/31/2021 8:45 AM RN PLACEMENT Patient Education Patient Education Triamcinolone (By injection) Triamcinolone (jnxa-bk-YVZ-oh-lone) Treats many diseases and conditions, especially problems [...] pharmacist before using any other medicine, including aftb-mrw-rdymxim medicines, vitamins, and herbal products. ?? There [...] may report side effects to FDA at 0-652-GWW-7030 ?? 2017 [employer] Information is for End User's use only and may not be sold, redistributed or otherwise used for commercial purposes. The above information is an sld educational aide only. It is not intended as medical advice for individual conditions or treatments. Talk to your doctor, nurse or pharmacist before following any medical regimen to see if it is safe and effective for you. Leflunomide (By mouth) Leflunomide (eh-KIYN-yoc-mide) Treats rheumatoid arthritis. Brand Name(s): Arava There [...] pharmacist before using any other medicine, including iczt-xhb-lodqghi medicines, vitamins, and herbal products. ?? Do [...] may report side effects to FDA at 6-307-FCR-3785 ?? 2017 [employer] Information is for End User's use only and may not be sold, redistributed or otherwise used for commercial purposes. The above information is an sld educational aide only. It is not intended as medical advice for individual conditions or treatments. Talk to your doctor, nurse or pharmacist before following any medical regimen to see if it is safe and effective for you. PLACEMENT documented in this encounter Ordered Prescriptions Prescription [...] Past serologies: [facility] panel 08/2019---labs reveal positive anti-TRADEMARK PARALEGAL antibody which is likely a false positive [...] showed osteoporosis Avise 08/2019---[facility]ise labs reveal positive anti-TRADEMARK PARALEGAL antibody which is likely a false positive [...] Woodruff III, MD at 03/31/2021 4:03 PM RN PLACEMENT PLACEMENT PLACEMENT documented in this encounter Miscellaneous Notes * Assessment & Plan Note - Miriam Frye PA - 03/31/2021 8:44 AM CSTAssociated Problem(s): Abdominal pain Elevated lipase. Imuran stopped. Pt advised to f/u with gi. Recheck labs today. PLACEMENT * Assessment & Plan Note - Miriam [...] showed osteoporosis Avise 08/2019---[facility]ise labs reveal positive anti-TRADEMARK PARALEGAL antibody which is likely a false positive due tonegative ASHLEY. Her father had psoriasis, pt changed from ra to PsA on 03/25/2020. ?? PLACEMENT PLACEMENT * Assessment & Plan Note - Miriam [...] Past serologies: [facility]ise panel 08/2019---labs reveal positive anti-TRADEMARK PARALEGAL antibody which is likely a false positive due tonegative ASHLEY. ?? RF neg but has a possible family hx of psoriatic arthritis (father) so if she develops psoriasis diagnosis will change to psoriatic arthritis. Rt hand US 09/2019 showed: ?? PLACEMENT PLACEMENT PLACEMENT documented in this encounter Plan of Treatment Scheduled Orders Name Type Priority Associated Diagnoses Orde r Schedule Amylase Lab Routine Psoriatic arthritis ([facility]/HCC) ([facility]) Encounter for long-term (current) use of medications Abdominal pain Expected: 03/31/2021, Expires: 03/31/2022 Lipase Lab Routine Psoriatic arthritis ([facility]) ([facility]) Encounter for long-term (current) use of medications Abdominal pain Expected: 03/31/2021, Expires: 03/31/2022 documented as of this encounter Procedures Procedure Name Priority Date/Time Associated Diagnosis Comments CBC WITH AUTO DIFFERENTIAL Routine 03/31/2021 9:47 AM RN PLACEMENT Psoriatic arthritis (CMS/HCC) (HCC) ERYTHROCYTE SEDIMENTATION RATE Routine 03/31/2021 9:47 AM RN PLACEMENT Psoriatic arthritis (CMS/HCC) (HCC) CRP (ACUTE PHASE) Routine 03/31/2021 9:4 7 AM RN PLACEMENT Psoriatic arthritis (CMS/HCC) (HCC) COMPREHENSIVE METABOLIC PANEL Routine 03/31/2021 9:47 AM RN PLACEMENT Psoriatic arthritis (CMS/HCC) (HCC) documented in this encounter Results * Erythrocyte sedimentation rate (03/31/2021 9:47 AM RN PLACEMENT) Erythrocyte sedimentation rate 8 < OR = 20 mm/h [facility] Blood specimen (specimen) 03/31/2021 9:47 AM RN PLACEMENT 03/31/2021 9:48 AM RN PLACEMENT Miriam VALLE LAB BLOOD ORDERAB LES Final Result [facility] [address] [place] [address] * CRP (acute phase) (03/31/2021 9:47 AM RN PLACEMENT) C-RP 3.9 <8.0 mg/L [facility] evy Blood specimen (specimen) 03/31/2021 9:47 AM RN PLACEMENT 03/31/2021 9:48 AM RN PLACEMENT Miriam VALLE LAB BLOOD ORDERAB LES Final Result [facility] [address] [address] * (ABNORMAL) Comprehensive metabolic panel (03/31/2021 9:47 AM RN PLACEMENT) Glucose 115(H) 65 - 99 mg/dL [facility] Comment: ? Fasting reference interval For someone without known diabetes, a glucose value between 100 and 125 mg/dL is consistent with prediabetes and should be confirmed with a follow-up test. BUN 17 7 - 25 mg/dL [facility] Creatinine 1.04 0.50 - 1.10 mg/dL [facility] eGFR NON-AFR. OMANI 64 > OR = 60 mL/min/1. 73m2 [facility] EGFR 75 > OR = 60 mL/min/1. 73m2 [facility] BUN/creat ratio NOT APPLICABLE 6 - 22 (calc) [facility] Sodium 135 135 - 146 mmol/L [facility] Potassium, pl 4.6 3.5 - 5.3 mmol/L [facility] Chloride 103 98 - 110 mmol/L [facility] CO2 21 20 - 32 mmol/L [facility] Calcium 9.5 8.6 - 10.2 mg/dL [facility] Protein, sr 7.4 6.1 - 8.1 g/dL [facility] Albumin 4.4 3.6 - 5.1 g/dL [facility] GLOBULIN 3.0 1.9 - 3.7 g/dL (calc) [facility] Alb/glob ratio 1.5 1.0 - 2.5 (calc) [facility] Bilirubin, total 0.6 0.2 - 1.2 mg/dL [facility] Alk phos 91 31 - 125 U/L [facility] AST 15 10 - 35 U/L [facility] ALT (SGPT) 21 6 - 29 U/L [facility] Blood specimen (specimen) 03/31/2021 9:47 AM RN PLACEMENT 03/31/2021 9:48 AM RN PLACEMENT us iMriam VALLE LAB BLOOD ORDERAB LES Final Result [facility] [address] [place] [address] * CBC with auto differential (03/31/2021 9:47 AM RN PLACEMENT) WBC 6.5 3.8 - 10.8 Thousand/u L [facility] RBC, POC 5.05 3.80 - 5.10 Million/uL [facility] Hgb 14.6 11.7 - 15.5 g/dL [facility] Hct 44.9 35.0 - 45.0 % [facility] MCV 88.9 80.0 - 100.0 fL [facility] MCH 28.9 27.0 - 33.0 pg [facility] MCHC 32.5 32.0 - 36.0 g/dL [facility] Rdw 12.8 11.0 - 15.0 % [facility] Platelets 348 140 - 400 Thousand/u L [facility] MPV 9.4 7.5 - 12.5 fL [facility] Neutrophils, abs 4,381 1,500 - 7,800 cells/uL [facility] Lymphocytes, abs 1,521 850 - 3,900 cells/uL [facility] Monocyte abs 364 200 - 950 cells/uL [facility] Eosinophils, abs 143 15 - 500 cells/uL [facility] Basophils, abs 91 0 - 200 cells/uL [facility] Neutrophils 67.4 % [facility] Lymphocyte pct 23.4 % [facility] Monocytes 5.6 % [facility] Eosinophils 2.2 % [facility] Basophils 1.4 % [facility] Blood specimen (specimen) 03/31/2021 9:47 AM RN PLACEMENT 03/31/2021 9:48 AM RN PLACEMENT Mirima VALLE LAB BLOOD ORDERAB LES Final Result [facility] [address] [place] [address] documented in this encounter Visit Diagnoses Diagnosis [...] use of medications Given 03/31/2021 10:03 AM RN PLACEMENT 100 mg Left Dorsogluteal/Butt ock documented in this encounter Care Teams Agile Java Developer Relationship Specialty Start Date End Date Bhupinder Tobias MD [address] [place], [place] [id number] PCP - General Internal Medicine 06/03/20 Cash Woodruff III, MD [address] [facility] [address] [place] [address] Rheumatology 04/12/17 Jorge Aguiar MD [address] [place] [address] Consulting Physician Urology 11/10/20 Khoa Arias MD [address] [place] [address] Referring Physician Gastroenterology 03/20/21 documented as of this encounter
--- OUTSIDE RECORDS SUMMARY | 2024-04-29 20:16 | XMS_ITS | Encounter Summary ---
Author Organization [facility] Healthcare Address [address] [place] [address] Care Team Providers Care Director Of Special Education Name Role Phone Kumar CARRILLO MD, Cash Howard Unavailable [phone] Bhupinder Tobias MD Primary Care Provider [phone] Jorge Aguiar MD Unavailable [phone] Khoa Arias MD Unavailable [phone] Reason for Visit * Auth/Cert Specialty Diagnoses / Procedures Referred By Kaylynn t Referred To Contact Diagnoses Acute pancreatitis, unspecified complication status, unspecified pancreatitis type Acute pancreatitis, unspecified complication status, unspecified pancreatitis type [K85.90] Procedures AL EDG US EXAM SURGICAL ALTER STOM DUODENUM/JEJUNUM US Endoscopy ESOPHAGOGASTRODUODENOSCOPY Referral ID Status Reason Start Date Expiration Date Visits Re quested Visits Authorized [id number] 1 1 Encounter Details Date Type Department Care Team (Latest Contact Info) Description 08/31/2021 9:55 AM CDT - 08/31/2021 12:00 PM CDT Hospital Encounter [facility] [address] [facility] [address] [place] [address] Devin Miller MD [address] 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 Room: [facility] 1 Note Status: Finalized Procedure: [...] The Olympus curved linear array therapeutic endosonoscope [id number] was introduced through the and advanced to the GIF H190 [id number] endoscope was introduced through the and advanced [...] On: 08/31/2021 10:04 AM Recognized by the [place] for promoting quality [...] biopsy) 08/31/2021 10:39 AM CDT Narrative PATHOLOGY [facility] - 09/01/2021 11:52 PM CDT EPIC results best viewed via link to PDF [facility] Arabella [facility] [place] [address] Note to Patients: This report may contain [...] Gender: ??F : ??1975 (Age: 46) Address: ??[address] [place] [address] ??[id number] Hospital #: ??[id number] Taken:08/31/2021 Received:08/31/2021 Reported: 09/01/2021 Patient Type: [facility] SDS ?? Service: Gastro Location: Physician(s): ??Salvador [...] Surgical Pathology and Flow Cytometry Departments at [facility] as part of an ongoing air quality manager program and in compliance with federally mandated [...] Surgical Pathology and Flow Cytometry Departments of [facility]. ??It has not been cleared or approved by the U. S. Food and Drug Administration. IMAGES AND SCANNED DOCUMENTS, IF INCLUDED, ONLY VIEWABLE IN PDF VERSION OF REPORT Devin Miller MD LAB PATHOLOGY ORDERABLES F inal Result PATHOLOGY [facility] 3rd Floor [place], [place] [phone] * POCT hCG, urine (08/31/2021 10:23 AM CDT) HCG, ur, POC Negative Lot Number [id number]\ QC Backgroud Clear Acceptable QC Control Line [...] Female Attending MD: Devin Miller M.D. Room: [facility] 1 Note Status: Finalized Procedure: [...] was obtained. The Olympuscurved linear array therapeutic [id number] was introduced through the and advanced to the GIF H190 [id number] endoscope was introduced through theand advanced to [...] On: 08/31/2021 10:04 AM Recognized by the [place] for promoting quality [...] 08/31/2021 documented in this encounter Care Teams Director Of Special Education Relationship Specialty Start Date End Date Bhupinder Tobias MD [address] [place] [address] PCP - General Internal Medicine 06/03/20 Cash [place] III, MD [address] [place] [address] Rheumatology 04/12/17 Jorge Aguiar MD [address] [place] [address] Consulting Physician Urology 11/10/20 Khoa Arias MD [address] [facility] [address] [place] [address] Referring Physician Gastroenterology 03/20/21 documented as of this encounter
--- OUTSIDE RECORDS SUMMARY | 2024-04-29 20:16 | XMS_ITS | Encounter Summary ---
Author Organization [facility] Address [address] [facility] [address] [place] [address] Phone Care Team Providers Care Retort Furnace Operator Name Role Phone Kumar CARRILLO MD, Cash Howard Unavailable [phone] Bhupinder Tobias MD Primary Care Provider [phone] Jorge Aguiar MD Unavailable [phone] Khoa Arias MD Unavailable [phone] Reason for Visit * Reason Onset Date Comments Recommendations 11/28/2021 Encounter Details Date Type Department Care Team (Late st Contact Info) Description 11/28/2021 Telephone [facility] [address] [place] [address] Medical Office Building [address], [address] [place] [address] Marjorie Diaz RN MD Recommendations [...] on file 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 Gender Identity Female 08/14/2022 11:32 AM [...] on filedocumented in this encounter Care Teams Retort Furnace Operator Relationship Specialty Start Date End Date Bhupinder Tobias MD [address] [address] PCP - General Internal Medicine 06/03/20 Cash [place] III, MD [address] [facility] [address] [place] [address] Rheumatology 04/12/17 Jorge Aguiar MD [address] [address] Consulting Physician Urology 11/10/20 Khoa Arias MD [address] [address] Referring Physician Gastroenterology 03/20/21 documented as of this encounter
--- OUTSIDE RECORDS SUMMARY | 2024-04-29 20:16 | XMS_ITS | Encounter Summary ---
Author Organization [facility] Address [address] [place] [address] Phone Care Team Providers Care Diesel Tractor Operator Name Role Phone Kumar CARRILLO MD, Cash Hwoard Unavailable [phone] Bhupinder Tobias MD Primary Care Provider [phone] Jorge Aguiar MD Unavailable [phone] Khoa Arias MD Unavailable [phone] Reason for Visit * Reason Onset Date Comments Medical Records Checklist 08/09/2022 Encounter Details Date Type Department Care Team (Late st Contact Info) Description 08/09/[address] [facility] Department of Surgery, Section of Colon and Rectal Surgery [address] [facility] Advanced Medicine 12th Floor, [place] [address] Anu Lin, B.A. Medical Records [...] file Legal Sex Female 9:24 PM MEDICAL DRIVER Gender Identity Female 08/14/2022 11:32 AM [...] on filedocumented in this encounter Care Teams Diesel Tractor Operator Relationship Specialty Start Date End Date Bhupinder Tobias MD [address] [facility] [address] [address] PCP - General Internal Medicine 06/03/20 Cash [place] III, MD [address] [facility] [address] [place] [address] Rheumatology 04/12/17 Jorge Aguiar MD [address] [facility] [address] [facility] [address] [place] [address] Consulting Physician Urology 11/10/20 Khoa Arias MD [address] [address] Referring Physician Gastroenterology 11/29/21 documented as of this encounter
--- OUTSIDE RECORDS SUMMARY | 2024-04-29 20:16 | XMS_ITS | Encounter Summary ---
Author Organization [facility] Address [address] [place] [address] Phone Care Team Providers Care Pipelines Laborer Name Role Phone Kumar CARRILLO MD, Cash Howard Unavailable [phone] Bhupinder Tobias MD Primary Care Provider [phone] Jorge Aguiar MD Unavailable [phone] Khoa Arias MD Unavailable [phone] Reason for Visit * Reason Onset Date Comments Referral Request 07/12/2022 Encounter Details Date Type Department Care Team (Late st Contact Info) Description 07/12/2022 Telephone [facility] Department of Surgery, Section of Colon and Rectal Surgery [address] [facility] Advanced Medicine 12th Floor, [place] [address] Elena Don CMA Referral Request [...] on file Legal Sex Female 9: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 documented in this encounter Plan of Treatment Not on file documented as of this encounter Visit Diagnoses Not on filedocumented in this encounter Care Teams Pipelines Laborer Relationship Specialty Start Date End Date Bhupinder Tobias MD [address] [address] PCP - General Internal Medicine 06/03/20 Cash [place] III, MD [address] [address] Rheumatology 04/12/17 Jorge Aguiar MD [address] [place] [address] [place] [address] Consulting Physician Urology 11/10/20 Khoa Arias MD [address] [address] Referring Physician Gastroenterology 03/20/21 documented as of this encounter
--- OUTSIDE RECORDS SUMMARY | 2024-04-29 20:16 | XMS_ITS | Encounter Summary ---
Author Organization [facility] Healthcare Address [address] [place] [address] Care Team Providers Care Ornamental Iron Worker Helper Name Role Phone Kumar CARRILLO MD, Cash Howard Unavailable [phone] Bhupinder Tobias MD Primary Care Provider [phone] Jorge Aguiar MD Unavailable [phone] Khoa Arias MD Unavailable [phone] Encounter Details Date Type Department Care Team (Latest Contact Info) Description 08/14/2022 9:46 AM CDT - 08/14/2022 11:59 PM CDT Hospital Encounter [facility] [address] [place] [address] Discharge Disposition: Discharge to home or self [...] on file Legal Sex Female 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 ??There will be no report generated by a [facility] Radiologist. Narrative [facility] - 08/14/2022 9:46 AM CDT EXAMINATION: ??Images For Reference Purposes Only us Jose De Jesus Calderon MD IMG CT PROCEDURES Final Resu lt [facility] documented in this encounter Visit Diagnoses Not on filedocumented in this encounter Care Teams Ornamental Iron Worker Helper Relationship Specialty Start Date End Date Bhupinder Tobias MD [address] [place] [address] PCP - General Internal Medicine 06/03/20 Cash [place] III, MD [address] [facility] [address] [place] [address] Rheumatology 04/12/17 Jorge Aguiar MD [address] [facility] [address] [place] [address] Consulting Physician Urology 11/10/20 Khoa Arias MD [address] [facility] [address] [place] [address] Referring Physician Gastroenterology 03/20/21 documented as of this encounter
--- OUTSIDE RECORDS SUMMARY | 2024-04-29 20:16 | XMS_ITS | Encounter Summary ---
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 Gender Identity Female 08/14/2022 11:32 AM CDT [...] filedocumented in this encounter Care Teams Chief Business Development Officer Relationship Specialty Start Date End Date Bhupinder Tobias MD [address] [facility] [address] [place] [address] PCP - General Internal Medicine 06/03/20 Cash [place] III, MD [address] [facility] [address] [place] [address] Rheumatology 04/12/17 Jorge Aguiar MD [address] [facility] [address] [place] [address] Consulting Physician Urology 11/10/20 Khoa Arias MD [address] [facility] [address] [place] [address] Referring Physician Gastroenterology 03/20/21 documented as of this encounter
--- OUTSIDE RECORDS SUMMARY | 2024-04-29 20:16 | XMS_ITS | Encounter Summary ---
Author Organization [facility] Address [address] [place] [address] Phone Care Team Providers Care Retirement Specialist Name Role Phone Kumar CARRILLO MD, Cash Howard Unavailable [phone] Bhupinder Tobias MD Primary Care Provider [phone] Jorge Aguiar MD Unavailable [phone] Khoa Arias MD Unavailable [phone] Encounter Details Date Type Department Care Team (Late st Contact Info) Description 06/28/2021 9:45 AM PRODUCTION SUPPORT SPECIALIST Office Visit [facility] [address] [place] [address] Miriam Frye PA [address] [place] [address] Psoriatic arthritis (CMS/HCC) (HCC) (Primary Dx); [...] on file Legal Sex Female 9:24 PM PRODUCTION SUPPORT SPECIALIST Gender Identity Female 08/14/2022 11:32 AM CDT Sexual Orientation Straight 02/13/2023 7: 01 AM CDT documented as of this encounter Last Filed Vital Signs Vital Sign Reading Time Taken Comments Blood Pressure 130/94 06/28/2021 9:50 AM PRODUCTION SUPPORT SPECIALIST Pulse 90 06/28/2021 9:50 AM PRODUCTION SUPPORT SPECIALIST Temperature 36.3 ??C (97.3 ??F) 06/28/2021 9:50 AM CS T Respiratory Rate - - Oxygen Saturation 97% 06/28/2021 9:50 AM PRODUCTION SUPPORT SPECIALIST Inhaled Oxygen Concentration - - Weight 86.5 kg (190 lb 9.6 oz) 06/28/2021 9:50 A M PRODUCTION SUPPORT SPECIALIST Height - - Body Mass Index 30.76 06/03/2020 3:14 PM PRODUCTION SUPPORT SPECIALIST documented in this encounter Progress Notes * [...] orders for this visit: Psoriatic arthritis (CMS/HCC) ([facility]) (Primary) Assessment & Plan: High cdai. On [...] Past serologies: [facility] panel 08/2019---labs reveal positive anti-SLIVER LAP TENDER antibody which is likely a false positive [...] showed osteoporosis Avise 08/2019---[facility]ise labs reveal positive anti-SLIVER LAP TENDER antibody which is likely a false positive [...] Woodruff III, MD at 06/28/2021 2:14 PM PRODUCTION SUPPORT SPECIALIST UCTION SUPPORT SPECIALIST UCTION SUPPORT SPECIALIST documented in this encounter Miscellaneous Notes * Assessment & Plan Note - Miriam Frye PA - 06/28/2021 10:08 AM CSTAssociated Problem(s): Abdominal pain Recently dx with mild pancreatitis. Needs lipase/amylase rechecked. Still has some upper abd pain. Advised pt to f/u with GI also. UCTION SUPPORT SPECIALIST * Assessment & Plan Note - Miriam [...] showed osteoporosis Avise 08/2019---[facility]ise labs reveal positive anti-SLIVER LAP TENDER antibody which is likely a false positive due tonegative ASHLEY. Her father had psoriasis, pt changed from ra to PsA on 03/25/2020. ?? UCTION SUPPORT SPECIALIST * Assessment & Plan Note - Miriam [...] Past serologies: [facility] panel 08/2019---labs reveal positive anti-SLIVER LAP TENDER antibody which is likely a false positive due tonegative ASHLEY. ?? RF neg but has a possible family hx of psoriatic arthritis (father) so if she develops psoriasis diagnosis will change to psoriatic arthritis. Rt hand US 09/2019 showed: ??F/u 1 month. UCTION SUPPORT SPECIALIST UCTION SUPPORT SPECIALIST documented in this encounter Plan of Treatment Scheduled Orders Name Type Priority Associated Diagnoses Orde r Schedule Amylase Lab Routine Psoriatic arthritis ([facility]) ([facility]) Encounter for long-term (current) use of medications Abdominal pain Expected: 06/28/2021, Expires: 06/28/2022 Lipase Lab Routine Psoriatic arthritis ([facility]) ([facility]) Encounter for long-term (current) use of medications Abdominal pain Expected: 06/28/2021, Expires: 06/28/2022 Urinalysis reflex to microscopic and culture Urine Microbiology Routine Psoriatic arthritis ([facility]) ([facility]) Encounter for long-term (current) use of medications Abdominal pain 1 Occurrences starting 06/28/2021 until 06/28/2022 documented as of this encounter Procedures Procedure Name Priority Date/Time Associated Diagnosis Comments REFLEXIVE URINE CULTURE Routine 06/28/2021 10:51 AM PRODUCTION SUPPORT SPECIALIST URINALYSIS AND REFLEX TO MICROSCOPIC AND CULTURE Routine 06/28/2021 10:51 AM PRODUCTION SUPPORT SPECIALIST CBC WITH AUTO DIFFERENTIAL Routine 06/28/2021 10:51 AM PRODUCTION SUPPORT SPECIALIST Psoriatic arthritis ([facility]) ([facility]) Encounter for long-term (current) use of medications ERYTHROCYTE SEDIMENTATION RATE Routine 06/28/2021 10:51 AM PRODUCTION SUPPORT SPECIALIST Psoriatic arthritis (CMS/HCC) (HCC) Encounter for long-term (current) use of medications URINE CULTURE Routine 06/28/2021 10:51 AM PRODUCTION SUPPORT SPECIALIST CRP (ACUTE PHASE) Routine 06/28/2021 10: 51 AM PRODUCTION SUPPORT SPECIALIST Psoriatic arthritis (CMS/HCC) (HCC) Encounter for long-term (current) use of medications LIPASE Routine 06/28/2021 10:51 AM PRODUCTION SUPPORT SPECIALIST AMYLASE Routine 06/28/2021 10:51 AM PRODUCTION SUPPORT SPECIALIST COMPREHENSIVE METABOLIC PANEL Routine 06/28/2021 10:51 AM PRODUCTION SUPPORT SPECIALIST Psoriatic arthritis (CMS/HCC) (HCC) Encounter for long-term (current) use of medications documented in this encounter Results * Urine culture (06/28/2021 10:51 AM PRODUCTION SUPPORT SPECIALIST) Urine culture [facility] Comment: ??CULTURE, URINE, ROUTINE ?Micro Number: ?[id number] ??Test Status: ? Final ??Specimen Source: ?? Urine ??Specimen Quality: ??Adequate ??Result: ?No Growth 06/28/2021 10:5 1 AM PRODUCTION SUPPORT SPECIALIST 06/28/2021 10:53 AM PRODUCTION SUPPORT SPECIALIST [facility] MICROBIOLOGY - GENERAL ORDERABLES Final Result [facility] [address] [place] [address] * (ABNORMAL) Lipase (06/28/2021 10:51 AM PRODUCTION SUPPORT SPECIALIST) LIPASE 135(H) 7 - 60 U/L [facility] 06/28/2021 10:5 1 AM PRODUCTION SUPPORT SPECIALIST 06/28/2021 10:53 AM PRODUCTION SUPPORT SPECIALIST Miriam [facility] BLOOD ORDERAB LES Final Result Performing Organization Address [facility] de Phone Number [facility] [address] [place] [address] * Amylase (06/28/2021 10:51 AM PRODUCTION SUPPORT SPECIALIST) Amylase 90 21 - 101 U/L [facility] 06/28/2021 10:5 1 AM PRODUCTION SUPPORT SPECIALIST 06/28/2021 10:53 AM PRODUCTION SUPPORT SPECIALIST Miriam [facility] BLOOD ORDERAB LES Final Result Performing Organization Address [facility] Phone Number [facility] [address] [place] [address] * REFLEXIVE URINE CULTURE (06/28/2021 10:51 AM PRODUCTION SUPPORT SPECIALIST) Pathologist [facility] Urine culture [facility] Comment:CULTURE INDICATED - RESULTS TO FOLLOW 06/28/2021 10:5 1 AM PRODUCTION SUPPORT SPECIALIST 06/28/2021 10:53 AM PRODUCTION SUPPORT SPECIALIST Miriam [facility] MICROBIOLOGY - GENERAL ORDERABLES Final Result Performing Organization Address [facility] de Phone Number [facility] [address] [place] [address] * (ABNORMAL) Urinalysis reflex to microscopic and culture (06/28/2021 10:51 AM PRODUCTION SUPPORT SPECIALIST) Color, ur YELLOW YELLOW [facility] [...] [facility] 06/28/2021 10:5 1 AM PRODUCTION SUPPORT SPECIALIST 06/28/2021 10:53 AM PRODUCTION SUPPORT SPECIALIST Miriam [facility] MICROBIOLOGY - GENERAL ORDERABLES Final Result Performing Organization Address [facility] Phone Number [facility] [address] [place] [address] * Erythrocyte sedimentation rate (06/28/2021 10:51 AM PRODUCTION SUPPORT SPECIALIST) Erythrocyte sedimentation rate 5 < OR = 20 mm/h [facility] Blood specimen (specimen) 06/28/2021 10:51 AM PRODUCTION SUPPORT SPECIALIST 06/28/2021 10:53 AM PRODUCTION SUPPORT SPECIALIST Result [facility] Miriam [facility] BLOOD ORDERAB LES Final Result Performing Organization Address [facility] de Phone Number [facility] [address] [place] [address] * CRP (acute phase) (06/28/2021 10:51 AM PRODUCTION SUPPORT SPECIALIST) C-RP 5.7 <8.0 mg/L [facility] Blood specimen (specimen) 06/28/2021 10:51 AM PRODUCTION SUPPORT SPECIALIST 06/28/2021 10:53 AM PRODUCTION SUPPORT SPECIALIST Miriam [facility] BLOOD ORDERAB LES Final Result [facility] [address] [place] [address] * Comprehensive metabolic panel (06/28/2021 10:51 AM PRODUCTION SUPPORT SPECIALIST) Glucose 87 65 - 99 mg/dL [facility] Comment: ? Fasting reference interval BUN 10 7 - 25 mg/dL [facility] Creatinine 0.88 0.50 - 1.10 mg/dL [facility] eGFR NON-AFR. DJIBOUTIAN 78 > OR = 60 mL/min/1. 73m2 [facility] EGFR 91 > OR = 60 mL/min/1. 73m2 [facility] BUN/creat ratio NOT APPLICABLE 6 - 22 (calc) [facility] Sodium 139 135 - 146 mmol/L [facility] Potassium, pl 3.7 3.5 - 5.3 mmol/L [facility] Chloride 106 98 - 110 mmol/L [facility] CO2 24 20 - 32 mmol/L [facility] Calcium 9.0 8.6 - 10.2 mg/dL [facility] Protein, sr 7.0 6.1 - 8.1 g/dL [facility] Albumin 4.4 3.6 - 5.1 g/dL [facility] GLOBULIN 2.6 1.9 - 3.7 g/dL (calc) [facility] Alb/glob ratio 1.7 1.0 - 2.5 (calc) [facility] Bilirubin, total 0.3 0.2 - 1.2 mg/dL [facility] Alk phos 80 31 - 125 U/L [facility] AST 13 10 - 35 U/L [facility] ALT (SGPT) 18 6 - 29 U/L [facility] Blood specimen (specimen) 06/28/2021 10:51 AM PRODUCTION SUPPORT SPECIALIST 06/28/2021 10:53 AM PRODUCTION SUPPORT SPECIALIST Miriam [facility] BLOOD ORDERAB LES Final Result [facility] [address] [address] [facility] [place], [place] [address] * (ABNORMAL) CBC with auto differential (06/28/2021 10:51 AM PRODUCTION SUPPORT SPECIALIST) [facility] WBC 5.8 3.8 - 10.8 Thousand/u L [...] Nestor Blood specimen (specimen) 06/28/2021 10:51 AM PRODUCTION SUPPORT SPECIALIST 06/28/2021 10:53 AM PRODUCTION SUPPORT SPECIALIST Miriam [facility] BLOOD ORDERAB LES Final Result [facility] [address] [place] [address] documented in this encounter Visit Diagnoses Diagnosis Psoriatic arthritis (HCC)- Primary Psoriatic arthropathy Encounter for long-term (current) use of medications Encounter for long-term (current) use of other medications Abdominal pain Abdominal pain, unspecified site documented in this encounter Care Teams Retirement Specialist Relationship Specialty Start Date End Date Bhupinder Tobias MD [address] [place] [address] PCP - General Internal Medicine 06/03/20 Cash Woodruff III, MD [address] [facility] [address] [place] [address] Rheumatology 04/12/17 Jorge Aguiar MD [address] [facility] [address] [place] [address] Consulting Physician Urology 11/10/20 Khoa Arias MD [address] [facility] [address] [place] [address] Referring Physician Gastroenterology 03/20/21 documented as of this encounter
--- OUTSIDE RECORDS SUMMARY | 2024-04-29 20:16 | XMS_ITS | Encounter Summary ---
Author Organization [facility] Address [address] [place] [address] Phone Care Team Providers Care Bone Tender Name Role Phone Kumar CARRILLO MD, Cash Howard Unavailable Bhupinder Tobias MD Primary Care Provider [phone] Jorge Aguiar MD Unavailable [phone] Koha Arias MD Unavailable [phone] Encounter Details Date Type Department Care Team (Late st Contact Info) Description 06/26/2021 Telephone [facility] [address] [place] [address] Miriam Frye PA [address] [place] [address] Social History Tobacco Use Types Packs/Day Years Used Date Smoking Tobacco: Never Alcohol Use Standard Drinks/Week Comments No 0 (1 standard drink = 0.6 oz pur e alcohol) Comments No Sex and Gender Information Value Date Recorded Sex Assigned at Not on file Legal Sex Female 9:24 PM PHYSICIAN OFFICE ASSISTANT Gender Identity Female 08/14/2022 11:32 AM CDT Sexual Orientation Straight 02/13/2023 7: 01 AM CDT documented as of this encounter Miscellaneous Notes * Telephone Encounter - Shavon Mcfadden MA - 06/26/2021 2:44 PM CST Patient is rescheduled to SaturdayJune 28 ICIAN OFFICE ASSISTANT * Telephone Encounter - Miriam Frye PA - 06/26/2021 8:48 AM CST Can you call her and schedule her on a day dr woodruff is here also. ty. ICIAN OFFICE ASSISTANT documented in this encounter Plan of Treatment Not on file documented as of this encounter Visit Diagnoses Not on filedocumented in this encounter Care Teams Bone Tender Relationship Specialty Start Date End Date Bhupinder Tobias MD [address] [address] PCP - General Internal Medicine 06/03/20 Cash Woodruff III, MD [address] [facility] [address] [place] [address] Rheumatology 04/12/17 Jorge Aguiar MD [address] [address] Consulting Physician Urology 11/10/20 Khoa Arias MD [address] [address] Referring Physician Gastroenterology 03/20/21 documented as of this encounter
--- OUTSIDE RECORDS SUMMARY | 2024-04-29 20:16 | XMS_ITS | Encounter Summary ---
Author Organization [facility] Address [address] [place] [address] Phone Care Team Providers Care Fire Equipment Inspector Helper Name Role Phone Kumar CARRILLO MD, Cash Howard Unavailable [phone] Bhupinder Tobias MD Primary Care Provider [phone] Jorge Aguiar MD Unavailable Khoa Arias MD Unavailable [phone] Reason for Visit * Reason Onset Date Comments GI Preprocedure 08/30/2021 Encounter Details Date Type Department Care Team (Late st Contact Info) Description 08/30/2021 Telephone [facility] [address] [facility] Building [address] [place] [address] Nikki Sterling RN GI Preprocedure [...] on file Legal Sex Female 9:24 PM STEAM FITTER HELPER Gender Identity Female 08/14/2022 11:32 AM [...] None ENDOCRINE: None PRIOR PROCEDURE ISSUES: None WHIPPED TOPPING MIXER/: NA IMPLANTS.: None Notes: DIABETIC MEDS Y/N: [...] [] Location limitations: Scheduling Scheduling location limitations: Food And Beverage Checker needed [] NA Language: POA [] NA Name: SPECIAL PROCEDURE INSTRUCTIONS Scheduling Notes Procedure information Date of procedure: 08.31.2021 Time of procedure: 1030 Arrival time:0930 Location: [facility] Proceduralist: Dr. Miller Instructions Method of instructions: MyChart [x]Confirmation of ride/s3b multi sensor operator [x]Post anesthesia restrictions given [x]NPO Instructions: [x]Diet [...] 08/30/2021 documented in this encounter Care Teams Fire Equipment Inspector Helper Relationship Specialty Start Date End Date Bhupinder Tobias MD [address] [place] [address] [place] [address] PCP - General Internal Medicine 06/03/20 Cash Heath III, MD [address] [address] Rheumatology 04/12/17 Jorge Aguiar MD [address] [place] [address] Consulting Physician Urology 11/10/20 Khoa Arias MD [address] [place] [address] Referring Physician Gastroenterology 03/20/21 documented as of this encounter
--- OUTSIDE RECORDS SUMMARY | 2024-04-29 20:16 | XMS_ITS | Encounter Summary ---
Author Organization [facility] Address [address] [place] [address] Care Team Providers Care Eap Specialist Name Role Phone Kumar CARRILLO MD, Cash Howard Unavailable [phone] Bhupinder Tobias MD Primary Care Provider [phone] Jorge Aguiar MD Unavailable [phone] Khoa Arias MD Unavailable [phone] Encounter Details Date Type Department Care Team (Latest Contact Info) Description 08/21/2022 9:55 AM CDT - 08/21/2022 11:59 PM CDT Hospital Encounter [facility] [address] [place] [address] Discharge Disposition: Discharge to home or self [...] on file Legal Sex Female 9:24 PM 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 ??There will be no report generated by a [facility] Radiologist. Narrative [facility] - 08/21/2022 9:55 AM CDT EXAMINATION: ??Images For Reference Purposes Only us Jose De Jesus Calderon MD IMG CT PROCEDURES Final Resu lt [facility] documented in this encounter Visit Diagnoses Not on filedocumented in this encounter Care Teams Eap Specialist Relationship Specialty Start Date End Date Bhupinder Tobias MD [address] [place], [place] [address] PCP - General Internal Medicine 06/03/20 Cash Heath III, MD [address] [place] [address] Rheumatology 04/12/17 Jorge Aguiar MD [address] [place], [place] [address] Consulting Physician Urology 11/10/20 Khoa Arias MD [address] [place], [place] [address] Referring Physician Gastroenterology 03/20/21 documented as of this encounter
--- OUTSIDE RECORDS SUMMARY | 2024-04-29 20:16 | XMS_ITS | Encounter Summary ---
Author Organization [facility] Address [address] [place] [address] Phone Care Team Providers Care Fine Sander Name Role Phone Isaiah Quiros MD Unavailable Kumar CARRILLO MD, Cash Howard Unavailable [phone] Alex Mahajan MD Unavailable [phone] Bhupinder Tobias MD Unavailable [phone] Bhupinder Tobias MD Primary Care Provider [phone] Jorge Aguiar MD Unavailable [phone] Encounter Details Date Type Department Care Team (Late st Contact Info) Description 03/15/2021 Telephone [facility] [address] [place] [phone] Kraig Garcia Social History Tobacco Use Types Packs/Day Years Used Date Smoking Tobacco: Never Alcohol Use Standard Drinks/Week Comments No 0 (1 standard drink = 0.6 oz pur e alcohol) Comments No Sex and Gender Information Value Date Recorded Sex Assigned at Not on file Legal Sex Female 9:24 PM COLLEGE RECRUITER Gender Identity Female 08/14/2022 11:32 AM CDT Sexual Orientation Straight 02/13/2023 7: 01 AM CDT documented as of this encounter Miscellaneous Notes * Telephone Encounter - Kraig Garcia - 03/15/2021 2:33 PM CST ----- Message from Julian Smith sent at 03/15/2021 2:10 PM COLLEGE RECRUITER ----- Regarding: MRI from 03-07-2021 When I signed in to My Chart, I found this conversation. I had completely forgotten about already sending it. If there are other things you need, let me know. Thank you! You are the best. Have a great day. EGE RECRUITER documented in this encounter Plan of Treatment Not on file documented as of this encounter Visit Diagnoses Not on filedocumented in this encounter Care Teams Fine Sander Relationship Specialty Start Date End Date Bhupinder Tobias MD [address] [address] PCP - General Internal Medicine 06/03/20 Isaiah Quiros MD [address] [facility] [address] [place] [address] Internal Medicine 02/18/17 03/19/21 Cash Heath III, MD [address] [facility] [address] [place] [address] Rheumatology 04/12/17 Alex Mahajan MD [address] [place] [address] Referring Physician Internal Medicine 05/07/19 1 Bhupinder Tobias MD [address] [facility] [address] [place] [address] Referring Physician Internal Medicine 06/03/20 1 Jorge Aguiar MD [address] [address] Consulting Physician Urology 11/10/20 documented as of this encounter
--- OUTSIDE RECORDS SUMMARY | 2024-04-29 20:16 | XMS_ITS | Encounter Summary ---
Author Organization [facility] Address [address] [place] [address] Phone Care Team Providers Care Eligibility Consultant Name Role Phone Kumar CARRILLO MD, Cash Howard Unavailable [phone] Bhupinder Tobias MD Primary Care Provider [phone] Jorge Aguiar MD Unavailable [phone] Khoa Arias MD Unavailable [phone] Encounter Details Date Type Department Care Team (Late st Contact Info) Description 08/10/2021 9:30 AM CDT Office Visit [facility] [address] [place] [phone] Miriam Frye PA [address] [place] [address] Psoriatic arthritis (HCC) (Primary Dx); [...] on file Legal Sex Female 9: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 [place] and egd utd and nl in past year per pt. Seen with dr woodruff today. Past serologies: [facility] panel 08/2019---labs reveal positive anti-CHEMICAL PROCESSOR antibody which is likely a false positive [...] showed osteoporosis [facility] 08/2019---[facility] labs reveal positive anti-CHEMICAL PROCESSOR antibody which is likely a false positive [...] gi dr arias for her pancreatitis . [place] and egd utd and nl in past year per pt. Seen with dr woodruff today. Past serologies: [facility] panel 08/2019---labs reveal positive anti-CHEMICAL PROCESSOR antibody which is likely a false positive [...] showed osteoporosis [facility] 08/2019---[facility] labs reveal positive anti-CHEMICAL PROCESSOR antibody which is likely a false positive [...] ORDERAB LES Final Result Performing Organization Address City/[facility]/ZIP Co de Phone Number [facility] [address] [place] [address] * Amylase (08/10/2021 11:05 AM CDT) Amylase 62 21 - 101 U/L [facility] 08/10/2021 11:0 5 AM CDT 08/10/2021 11:06 AM CDT Miriam VALLE LAB BLOOD ORDERAB LES Final Result Performing Organization Address [facility] Co de Phone Number [facility] [address] [place] [address] * Mitochondrial antibodies, qualitative (08/10/2021 11:05 AM CDT) MITOCHONDRIAL AB SCREEN NEGATIVE NEGATIVE [facility] 08/10/2021 11:0 5 AM CDT 08/10/2021 11:06 AM CDT Miriam VALLE LAB BLOOD ORDERAB LES Final Result Performing Organization Address City/[facility]/ZIP Co de Phone Number [facility] [address] [place] [address] * Smooth muscle antibody, qualitative (08/10/2021 11:05 AM CDT) ACTIN (SMOOTH MUSCLE) ANTIBODY (IGG) <20 <20 U [facility] Comment: Reference Range: ?? <20 U: [...] ORDERAB LES Final Result [facility] [address] [facility] [place] [address] * Erythrocyte sedimentation rate (08/10/2021 11:05 AM CDT) Pathologist [facility] Erythrocyte sedimentation rate 6 < OR = 20 mm/h [facility] Blood specimen (specimen) 08/10/2021 11:05 AM CDT 08/10/2021 11:06 AM CDT Miriam VALLE LAB BLOOD ORDERAB LES Final Result [facility] [address] [phone] * (ABNORMAL) CRP (acute phase) (08/10/2021 11:05 AM CDT) C-RP 19.3(H) <8.0 mg/L [facility] Blood specimen (specimen) 08/10/2021 11:05 AM CDT 08/10/2021 11:06 AM CDT us Miriam VALLE LAB BLOOD ORDERAB LES Final Result [facility] [address] [address] * Comprehensive metabolic panel (08/10/2021 11:05 AM CDT) Glucose 84 65 - 99 mg/dL [facility] [place] Comment: ? Fasting reference interval BUN 11 7 - 25 mg/dL [facility] [place] Creatinine 0.91 0.50 - 1.10 mg/dL [facility] eGFR NON-AFR. EQUATORIAL GUINEAN 75 > OR = 60 mL/min/1. 73m2 [facility] EGFR 87 > OR = 60 mL/min/1. 73m2 [facility] [place] BUN/creat ratio NOT APPLICABLE 6 - 22 (calc) [facility] Sodium 137 135 - 146 mmol/L [facility] Potassium, pl 3.9 3.5 - 5.3 mmol/L [facility] [place] Chloride 102 98 - 110 mmol/L [facility] CO2 29 20 - 32 mmol/L [facility] Calcium 9.1 8.6 - 10.2 mg/dL [facility] Protein, sr 6.8 6.1 - 8.1 g/dL [facility] Albumin 4.1 3.6 - 5.1 g/dL [facility] [place] GLOBULIN 2.7 1.9 - 3.7 g/dL (calc) [facility] [place] Alb/glob ratio 1.5 1.0 - 2.5 (calc) [facility] Bilirubin, total 0.5 0.2 - 1.2 mg/dL [facility] Alk phos 76 31 - 125 U/L [facility] AST 11 10 - 35 U/L [facility] ALT (SGPT) 15 6 - 29 U/L [facility] [place] Blood specimen (specimen) 08/10/2021 11:05 AM CDT 08/10/2021 11:06 AM CDT us Miriam VALLE LAB BLOOD ORDERAB LES Final Result [facility] [address] [phone] * (ABNORMAL) CBC with auto differential (08/10/2021 [...] LAB BLOOD ORDERAB LES Final Result [facility] [address] [place] [address] documented in this encounter Visit Diagnoses Diagnosis Psoriatic arthritis (HCC)- Primary Psoriatic arthropathy Encounter for long-term (current) use of medications Encounter for long-term (current) use of other medications Osteoporosis without current pathological fracture, unspecified osteoporosis type Other chronic pancreatitis (HCC) documented in this encounter Care Teams Eligibility Consultant Relationship Specialty Start Date End Date Bhupinder Tobias MD [address] [address] PCP - General Internal Medicine 06/03/20 Cash Woodruff III, MD [address] [address] Rheumatology 04/12/17 Jorge Aguiar MD [address] [address] Consulting Physician Urology 11/10/20 Khoa Arias MD [address] [address] Referring Physician Gastroenterology 03/20/21 documented as of this encounter
--- OUTSIDE RECORDS SUMMARY | 2024-04-29 20:16 | XMS_ITS | Encounter Summary ---
Author Organization [facility] Address [address] [place] [address] Phone Care Team Providers Care Licensed Prosthetist/Orthotist Name Role Phone Kumar CARRILLO MD, Cash Howard Unavailable [phone] Bhupinder Tobias MD Primary Care Provider [phone] Jorge Aguiar MD Unavailable [phone] Khoa Arias MD Unavailable [phone] Encounter Details Date Type Department Care Team (Late st Contact Info) Description 12/11/2021 Telephone [facility] [address] [place] [phone] Miriam Frye PA [address] [place] [address] Social History Tobacco Use Types Packs/Day [...] on file 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 Gender Identity Female 08/14/2022 11:32 AM [...] on filedocumented in this encounter Care Teams Licensed Prosthetist/Orthotist Relationship Specialty Start Date End Date Bhupinder Tobias MD [address] [address] PCP - General Internal Medicine 06/03/20 Cash Heath III, MD [address] [facility] [address] [place] [address] Rheumatology 04/12/17 Jorge Aguiar MD [address] [facility] [address] [place] [address] Consulting Physician Urology 11/10/20 Khoa Arias MD [address] [facility] [address] [place] [address] Referring Physician Gastroenterology 03/20/21 documented as of this encounter
--- OUTSIDE RECORDS SUMMARY | 2024-04-29 20:16 | XMS_ITS | Encounter Summary ---
Author Organization [facility] Address [address] [place] [address] Care Team Providers Care Teacher Education Instructor Name Role Phone Kumar CARRILLO MD, Cash Howard Unavailable [phone] Bhupinder Tobias MD Primary Care Provider [phone] Jorge Aguiar MD Unavailable [phone] Khoa Arias MD Unavailable [phone] Reason for Visit * Auth/Cert Specialty Diagnoses / Procedures Referred By Kaylynn t Referred To Contact Diagnoses Acute pancreatitis, unspecified complication status, unspecified pancreatitis type Acute pancreatitis, unspecified complication status, unspecified pancreatitis type [K85.90] Procedures LA EDG US EXAM SURGICAL ALTER STOM DUODENUM/JEJUNUM US Endoscopy ESOPHAGOGASTRODUODENOSCOPY Referral ID Status Reason Start Date Expiration Date Visits Re quested Visits Authorized [id number] 1 1 Encounter Details Date Type Department Care Team (Late st Contact Info) Description 08/31/2021 10:31 AM CDT Anesthesia Event [facility] [place] [address] [facility] [address] [place] [address] Renuka Mcdonald MD [address] [place] [address] Mily Dyer CRNA [address] [place] [address] [phone] (work) Anesthesia Record Procedure Summary Procedure Name [...] on file 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 Gender Identity Female 08/14/2022 11:32 AM CDT Sexual Orientation Straight 02/13/2023 7: 01 AM CDT documented as of this encounter OR Notes * Anesthesia Postprocedure Evaluation - Renuka Mcdonald MD - 08/31/2021 11:40 AM CDT Patient: Madalyn Smith Procedure Summary Date: 08/31/21 Room / Location: [facility] ENDOSCOPY ROOM 1 / [facility] Anesthesia Start: 1031 Anesthesia Stop: [...] mg tablet Past Week 07/09/16 -- John Montero MD Notes: Received from: External Pharmacy tamsulosin (FLOMAX) 0.4 mg extended release capsule More than a month 06/30/21 -- Gennaro Martinez,DISPATCH OFFICER Take 1 capsule (0.4 mg total) by [...] Medication protocol when under care of a OPERATIONS SPECIALIST Planned anesthesia: General/TIVA Informed Consent: Discussed plan with OPERATIONS SPECIALIST. Anesthesia plan and risks discussed with patient. [...] mL/hr documented in this encounter Care Teams Teacher Education Instructor Relationship Specialty Start Date End Date Bhupinder Tobias MD [address] [address] PCP - General Internal Medicine 06/03/20 Cash Heath III, MD [address] [facility] [address] [place] [address] Rheumatology 04/12/17 Jorge Aguiar MD [address] [place] [address] [place] [address] Consulting Physician Urology 11/10/20 Khoa Arias MD [address] [place] [address] [place] [address] Referring Physician Gastroenterology 03/20/21 documented as of this encounter
--- OUTSIDE RECORDS SUMMARY | 2024-04-29 20:16 | XMS_ITS | Encounter Summary ---
Author Organization [facility] Address [address] [facility] [address] [place] [address] Phone Care Team Providers Care Freight Flow Sales Leader Name Role Phone Kumar CARRILLO MD, Cash Howard Unavailable Bhupinder Tobias MD Primary Care Provider [phone] Joreg Aguiar MD Unavailable [phone] Khoa Arias MD Unavailable [phone] Reason for Visit * Reason Onset Date Comments office appointment 07/04/2022 Encounter Details Date Type Department Care Team (Late st Contact Info) Description 07/04/2022 Telephone [facility] Department of Surgery, Section of Colon and Rectal Surgery [address] [facility] Advanced Medicine 12th Floor, [place] [address] Anu Lin, B.A. 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 Gender Identity Female 08/14/2022 11:32 [...] on filedocumented in this encounter Care Teams Freight Flow Sales Leader Relationship Specialty Start Date End Date Bhupinder Tobias MD [address] [address] PCP - General Internal Medicine 06/03/20 Cash Heath III, MD [address] [address] Rheumatology 04/12/17 Jorge Aguiar MD [address] [place] [address] [place] [address] Consulting Physician Urology 11/10/20 Khoa Arias MD [address] [facility] [address] [address] Referring Physician Gastroenterology 03/20/21 documented as of this encounter
--- OUTSIDE RECORDS SUMMARY | 2024-04-29 20:16 | XMS_ITS | Encounter Summary ---
Author Organization [facility] Healthcare Address [address] [place] [address] Care Team Providers Care Auto Air Conditioning Apprentice Name Role Phone Kumar CARRILLO MD, Cash Howard Unavailable [phone] Bhupinder Tobias MD Primary Care Provider [phone] Jorge Aguiar MD Unavailable [phone] Khoa Arias MD Unavailable [phone] Reason for Referral * Consultation (Routine) - Closed Specialty Diagnoses / Procedures Referred By Kaylynn phillips Referred To Contact Gastroenterology Diagnoses Abdominal pain, epigastric Chronic pancreatitis, unspecified pancreatitis type (HCC) Gennaro Martinez NP [address] [facility] [address] [place] [address] Phone: tel: fax: External Order Referral ID Status Reason Start Date Expiration Date V isits Requested Visits Authorized [id number] Closed Specialty Services Required 06/30/2021 07/30/2022 1 1 Question Answer Please select the performing region: External Order [171] # of visits: 1 UMER Reason for Visit * Reason Comments Abdominal Pain Encounter Details Date Type Department Care Team (Late st Contact Info) Description 06/30/2021 5:19 PM PERFUMER - 06/30/2021 8:20 PM PERFUMER Emergency [facility] Emergency Department [address] [place] [address] Abdominal pain, epigastric (Primary Dx); Chronic pancreatitis, [...] on file Legal Sex Female 9:24 PM PERFUMER Gender Identity Female 08/14/2022 11:32 AM CDT Sexual Orientation Straight 02/13/2023 7: 01 AM CDT documented as of this encounter Last Filed Vital Signs Vital Sign Reading Time Taken Comments Blood Pressure 141/77 06/30/2021 8:00 PM PERFUMER Pulse 88 06/30/2021 8:00 PM PERFUMER Temperature 36.3 ??C (97.4 ??F) 06/30/2021 1:36 PM CS T Respiratory Rate 17 06/30/2021 1:36 PM PERFUMER Oxygen Saturation 95% 06/30/2021 8:00 PM PERFUMER Inhaled Oxygen Concentration - - Weight 85.7 kg (189 lb) 06/30/2021 1:36 PM PERFUMER Height 167.6 cm (5' 6 ) 06/30/2021 1:36 PM PERFUMER Body Mass Index 30.51 06/30/2021 1:36 PM PERFUMER documented in this encounter Discharge Diagnoses Diagnosis Other chronic pancreatitis (HCC) - OTHER CHRONIC PANCREATITIS Calculus of kidney - CALCULUS OF KIDNEY Personal history of urinary calculi - 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 Take tamsulosin daily to help with passage of her kidney stones, until your kidney stones have passed or the pain has resolved. [facility] Gastroenterology should be contacting you within [...] any acute worsening of your current symptoms. UMER UMER UMER * Attachments The following attachments cannot be sent through Care Everywhere. * Pancreatitis (AfterCare(R) Instructions(ER/ED)) (Armenian) * Kidney Stones (AfterCare(R) Instructions(ER/ED)) (Armenian) documented in this encounter Medications at Time [...] this encounter ED Notes * Gennaro Martinez TANBARK LABORER - 06/30/2021 5:38 PM CST HPI Chief [...] patient: Medication will not be dispensed in [place]. By: Librado Peterson MD Time: 06/30 2010 Comment: IV fluids a complete, patient experienced some relief of pain after administration of Toradol. She is ready for discharge at this time. By: Gennaro Martinez NP Final diagnoses: Abdominal pain, epigastric Chronic pancreatitis, unspecified pancreatitis type (HCC) Renal calculi Gennaro Martinez NP 06/30/21 1752 Gennaro Martinez, BRITT 07/11/21 0901 UMER * Scott Loya RN - 06/30/2021 5:19 PM CST Bed: OBS03 Expected date: Expected time: Means of arrival: Car Comments: Scott Loya RN 06/30/21 1719 UMER * Joshua Gibbs RN - 06/30/2021 1:38 PM CST Patient presents to the ED with complaint of left ribcage/LUQ pain. Patient states she had this similar presentation 05/26/21 at [place] and had an elevated lipase to 500's and was diagnosed with pancreatitis and discharged. Patient states since then she has been limping along . Patient states her pain was intermittent and has now become constant, worsening after eating. Patient states her stool is school bus yellow in color. Patient also with N/V. Patient is a/ox4, calm and cooperative. UMER documented in this encounter Plan of Treatment Scheduled Referrals Name Type Priority Associated Diagnoses Order Schedule Ambulatory referral to Gastroenterology Outpatient Referral Routine Abdominal pain, epigastric Chronic pancreatitis, unspecified pancreatitis type (HCC) Ordered: 06/30/2021 documented as of this encounter Procedures Procedure Name Priority Date/Time Associated Diagnosis Comments POCT HCG, URINE Routine 06/30/2021 7:[address] ABDOMEN PELVIS W CONTRAST ED 06/30/2021 6:29 PM PERFUMER URINALYSIS AND REFLEX TO MICROSCOPIC STAT 06/30/2021 6:18 PM PERFUMER EGFR STAT 06/30/2021 5:37 PM PERFUMER DIFFERENTIAL AUTO STAT 06/30/2021 5:3 7 PM PERFUMER CBC WITH AUTO DIFFERENTIAL STAT 06/30/2021 5:37 PM PERFUMER LIPASE STAT 06/30/2021 5:37 PM PERFUMER COMPREHENSIVE METABOLIC PANEL STAT 06/30/2021 5:37 PM PERFUMER documented in this encounter Results * POCT hCG, urine (06/30/2021 7:02 PM PERFUMER) HCG, ur, POC Negative Lot Number [id number] QC Backgroud Clear Acceptable QC Control Line Acceptable Urine 06/30/2021 7:02 PM PERFUMER us Gen Al MD POINT OF CARE TEST OR DERABLES Final Result * CT Abdomen Pelvis W Contrast (06/30/2021 6:29 PM PERFUMER) Anatomical Region Laterality Modality Body N/A Computed Tomogra phy 06/30/2021 6:43 PM PERFUMER Impressions 06/30/2021 7:16 PM PERFUMER 1. No imaging findings of active pancreatitis or complications from prior pancreatitis. 2. Scattered sub-5 mm nonobstructing renal stones in the bilateral kidneys. Dictated by: Cyndy Hsieh M.D. The radiology attending physician has personally reviewed this study, and had reviewed and/or edited this written report and agrees with it. Electronically signed by: Bella Mckeon M.D. Narrative 06/30/2021 7:16 PM PERFUMER EXAMINATION: ??Computed tomography of the abdomen and [...] signed by: Bella Mckeon M.D. Gennaro Martinez TANBARK LABORER IMG CT PROCEDURES Final Resul t * Urinalysis reflex to microscopic (06/30/2021 6:18 PM PERFUMER) Color, ur Yellow Yellow [facility] Clarity, ur Clear Clear [facility] Specific gravity, ur 1.022 1.003 - 1.030 [facility] pH, urine 6.0 [facility] Protein, ur ql Trace Negative [facility] Glucose, ur ql Negative Negative [facility] Ketones, ur Negative Negative [facility] Bilirubin, ur Negative Negative [facility] Blood, ur Negative Negative [facility] Urobilinogen, ur <2.0 <2.0 mg/dL [facility] Nitrite, ur Negative Negative [facility] Leukocyte esterase, ur Negative Negative [facility] UA reflex comment Reflex conditions for microscopic UA not met. [facility] Urine 06/30/2021 6:18 PM PERFUMER 06/30/2021 6:23 PM PERFUMER Narrative [facility] - 06/30/2021 6:38 PM PERFUMER ?? Urine pH is affected by diet, medications, systemic acid-base disturbances, and renal tubular function. ??pH may affect urinary stone formation. ??For example, urine pH below 6.0 may help reduce the tendency for calcium phosphate stones and pH greater than 6.0 may reduce the tendency for uric acid stone formation. Source: [place]. Last revised 05-02-2017 us Gen Al MD LAB URINE ORDERABLES Final Result [facility] Department [place] [address] * (ABNORMAL) eGFR (06/30/2021 5:37 PM PERFUMER) eGFR 68(L) 90 - 130 mL/min/1. 73 m2 JL [facility] Comment: Interpretive Data Reference Interval Normal ?>/= [...] last reviewed 2021. Blood 06/30/2021 5:37 PM PERFUMER 06/30/2021 5:51 PM PERFUMER us Gen Al MD LAB BLOOD ORDERABLES Final Result [facility] [address] [facility] Department [place] [address] * Differential, auto (06/30/2021 5:37 PM PERFUMER) Neutrophil abs 5.5 1.7 - 6.5 K/cumm [facility] Imm gran abs 0.1 0.0 - 0.1 K/cumm [facility] Lymphocyte abs 1.7 0.8 - 3.3 K/cumm [facility] Monocyte abs 0.5 0.2 - 0.8 K/cumm [facility] Eosinophil abs 0.1 0.0 - 0.5 K/cumm [facility] Basophil abs 0.1 0.0 - 0.1 K/cumm [facility] Neutrophil pct 70.1 % [facility] Comment: Interpretive Data Percent cell count reference ranges are not reported, since discordance with absolute values may lead to misinterpretation of CBC data. Current Interpretive Data was last revised on 2017. Imm gran pct 0.8 % [facility] Comment: Interpretive Data Percent cell count reference ranges are not reported, since discordance with absolute values may lead to misinterpretation of CBC data. Current Interpretive Data was last revised on 2017. Lymphocyte pct 21.2 % [facility] Comment: Interpretive Data Percent cell count reference ranges are not reported, since discordance with absolute values may lead to misinterpretation of CBC data. Current Interpretive Data was last revised on 2017. Monocyte pct 5.7 % [facility] Comment: Interpretive Data Percent cell count reference ranges are not reported, since discordance with absolute values may lead to misinterpretation of CBC data. Current Interpretive Data was last revised on 2017. Eosinophil pct 1.1 % [facility] Comment: Interpretive Data Percent cell count reference ranges are not reported, since discordance with absolute values may lead to misinterpretation of CBC data. Current Interpretive Data was last revised on 2017. Basophil pct 1.1 % [facility] Comment: Interpretive Data Percent cell count reference ranges are not reported, since discordance with absolute values may lead to misinterpretation of CBC data. Current Interpretive Data was last revised on 2017. Blood 06/30/2021 5:37 PM PERFUMER 06/30/2021 5:53 PM PERFUMER Gen Al MD LAB BLOOD ORDERABLES Final Result Performing Organization Address City/[facility]/ZIP Co de Phone Number [facility] Department [place] [address] * (ABNORMAL) Lipase (06/30/2021 5:37 PM PERFUMER) Pathologist [facility] Lipase 174(H) 10 - 99 Units/L [facility] Blood (Blood, Venous) 06/30/2021 5:37 PM PERFUMER 06/30/2021 5:51 PM PERFUMER Gen Al MD LAB BLOOD ORDERABLES Final Result Performing Organization Address [facility] de Phone Number [facility] Department [place] [address] * Comprehensive metabolic panel (06/30/2021 5:37 PM PERFUMER) Pathologist [facility] Sodium 142 135 - 145 mmol/L [facility] Potassium, pl 4.0 3.3 - 4.9 mmol/L [facility] Chloride 104 97 - 110 mmol/L [facility] CO2 27 22 - 32 mmol/L [facility] Anion gap 11 2 - 15 mmol/L [facility] BUN 12 8 - 25 mg/dL [facility] Creatinine 1.02 0.60 - 1.10 mg/dL [facility] Glucose 94 70 - 199 mg/dL [facility] Comment: Interpretive Data Fasting glucose [...] 2017. Calcium 9.6 8.5 - 10.3 mg/dL [facility] Bilirubin, total 0.2 0.1 - 1.2 mg/dL [facility] Protein, pl 8.3 6.5 - 8.5 g/dL [facility] Albumin 4.8 3.5 - 5.0 g/dL [facility] Alk phos 101 40 - 130 Units/L [facility] ALT 33 7 - 45 Units/L [facility] AST 25 10 - 45 Units/L [facility] Blood 06/30/2021 5:37 PM PERFUMER 06/30/2021 5:51 PM PERFUMER us Gen Al MD LAB BLOOD ORDERABLES Final Result [facility] Department [place] [address] * (ABNORMAL) CBC with auto differential (06/30/2021 5:37 PM PERFUMER) WBC 7.9 3.8 - 9.9 K/cumm [facility] Hgb 15.2 11.9 - 15.5 g/dL [facility] Hct 47.2(H) 35.6 - 45.5 % [facility] Plt 329 150 - 400 K/cumm [facility] MPV 9.4 9.1 - 12.3 fL [facility] RBC 5.41(H) 3.90 - 5.20 M/cumm [facility] MCV 87.2 81.3 - 96.4 fL [facility] MCH 28.1 27.1 - 33.3 pg [facility] MCHC 32.2(L) 32.3 - 35.7 g/dL [facility] RDW CV 14.2 11.1 - 14.9 % [facility] RDW SD 45.3 35.7 - 48.1 fL [facility] NRBC abs 0.00 0.00 - 0.01 K/cumm [facility] Blood (Blood, Venous) 06/30/2021 5:37 PM PERFUMER 06/30/2021 5:53 PM PERFUMER us Gen Al MD LAB BLOOD ORDERABLES Final Result [facility] Department [place] [address] documented in this encounter Visit Diagnoses Diagnosis [...] 1 dose Contrast Given 06/30/2021 6:29 PM PERFUMER 95 mL ketorolac (TORADOL) 30 mg/mL (1 mL) injection 30 mg 30 mg, intravenous, Once, On Sat06/30/21 at 1914, For 1 dose, For Adult IV push, administer over 15 seconds Given 06/30/2021 7:27 PM PERFUMER 30 mg morphine injection 6 mg 6 mg, intravenous, Administer over 4 Minutes, Once, On Sat06/30/21 at 1747, For 1 dose Given 06/30/2021 6:13 PM PERFUMER 6 mg ondansetron (ZOFRAN) injection 4 mg 4 mg, intravenous, Administer over 2 Minutes, Once, On Sat06/30/21 at 1748, For 1 dose Given 06/30/2021 6:13 PM PERFUMER 4 mg sodium chloride 0.9% infusion 100 mL/hr, intravenous, Continuous, Starting on Sat06/30/21 at 1738 New Bag 06/30/2021 6:13 PM PERFUMER 100 mL/hr 100 mL/hr tamsulosin (FLOMAX) extended release capsule 0.4 mg 0.4 mg, oral, Once, On Sat06/30/21 at 1914, For 1 dose, Do not crush, chew, cut, dissolve, open or otherwise manipulate tablet/capsule. Given 06/30/2021 7:27 PM PERFUMER 0.4 mg documented in this encounter Active and Recently Administered Medications Times are shown in PERFUMER. Scheduled Medication Order 06/28/2021 06/29/2021 06/30/2021 ketorolac [...] 06/30/2021 documented in this encounter Care Teams Auto Air Conditioning Apprentice Relationship Specialty Start Date End Date Bhupinder Tobias MD [address] [place] [address] PCP - General Internal Medicine 06/03/20 Cash Heath III, MD [address] [facility] [address] [place] [address] Rheumatology 04/12/17 Jorge Aguiar MD [address] [facility] [address] [place] [address] Consulting Physician Urology 11/10/20 Khoa Arias MD [address] [facility] [address] [place] [address] Referring Physician Gastroenterology 03/20/21 documented as of this encounter
--- OUTSIDE RECORDS SUMMARY | 2024-04-29 20:16 | XMS_ITS | Encounter Summary ---
Author Organization [facility] Address [address] [place] [address] Phone Care Team Providers Care Filer Repairer Name Role Phone Kumar CARRILLO MD, Cash Howard Unavailable [phone] Bhupinder Tobias MD Primary Care Provider [phone] Jorge Aguiar MD Unavailable [phone] Khoa Arias MD Unavailable [phone] Encounter Details Date Type Department Care Team (Late st Contact Info) Description 12/11/2021 11:15 AM CDT Office Visit [facility] [address] [place] [phone] Miriam Frye PA [address] [place] [address] Psoriatic arthritis (HCC) (Primary Dx); [...] on file 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 Seeing gi at [facility] now for her elevated lipase. [place] and egd utd and nl in past yearper pt. If labs stable will restart low dose arava 10mg po every day. To stay off orencia until recovered from rt knee surgery. Past serologies: [facility] panel 08/2019---labs reveal positive anti-SEWING MACHINE OPERATOR SEMIAUTOMATIC antibody which is likely a false positive [...] showed osteoporosis [facility] 08/2019---[facility] labs reveal positive anti-SEWING MACHINE OPERATOR SEMIAUTOMATIC antibody which is likely a false positive [...] no complications or infections. Seeing gi at [facility] now for her elevated lipase. [place] and egd utd and nl in past yearper pt. If labs stable will restart low dose arava 10mg po every day. To stay off orencia until recovered from rt knee surgery. Past serologies: [facility] panel 08/2019---labs reveal positive anti-SEWING MACHINE OPERATOR SEMIAUTOMATIC antibody which is likely a false positive [...] BLOOD ORDERAB LES Final Result [facility] [address] [facility] [place] [address] * Amylase (12/28/2021 10:56 AM CDT) Pathologist [facility] Amylase 72 21 - 101 U/L [facility] 12/28/2021 10:5 6 AM CDT 12/28/2021 10:57 AM CDT Miriam VALLE LAB BLOOD ORDERAB LES Final Result Performing Organization Address City/[facility]/ZIP Co de Phone Number [facility] [address] [facility] [place] [place] [place] [address] * Erythrocyte sedimentation rate (12/28/2021 10:56 AM CDT) Pathologist [facility] Erythrocyte sedimentation rate 17 < OR = 20 mm/h [facility] Blood specimen (specimen) 12/28/2021 10:56 AM CDT 12/28/2021 10:57 AM CDT Miriam VALLE LAB BLOOD ORDERAB LES Final Result Performing Organization Address [facility] Co de Phone Number [facility] [address] [facility] [place] [place] [address] * (ABNORMAL) CRP (acute phase) (12/28/2021 10:56 AM CDT) Pathologist [facility] C-RP 12.9(H) <8.0 mg/L [facility] Blood specimen (specimen) 12/28/2021 10:56 AM CDT 12/28/2021 10:57 AM CDT Miriam VALLE LAB BLOOD ORDERAB LES Final Result Performing Organization Address City/[facility]/ZIP Co de Phone Number [facility] [address] [place] [address] * (ABNORMAL) Comprehensive metabolic panel (12/28/2021 10:56 [...] BLOOD ORDERAB LES Final Result [facility] [address] [address] * (ABNORMAL) CBC with auto differential (12/28/2021 [...] LAB BLOOD ORDERAB LES Final Result [facility] [address] [address] [address] documented in this encounter Visit Diagnoses Diagnosis Psoriatic arthritis (HCC)- Primary Psoriatic arthropathy Abnormal serum level of lipase Other nonspecific abnormal serum enzyme levels documented in this encounter Care Teams Filer Repairer Relationship Specialty Start Date End Date Bhupinder Tobias MD [address] [facility] [address] [place] [address] PCP - General Internal Medicine 06/03/20 Cash Heath III, MD [address] [facility] [address] [place] [address] Rheumatology 04/12/17 Jorge Aguiar MD [address] [facility] [address] [place] [address] Consulting Physician Urology 11/10/20 Khoa Arias MD [address] [facility] [address] [place] [address] Referring Physician Gastroenterology 03/20/21 documented as of this encounter
--- OUTSIDE RECORDS SUMMARY | 2024-04-29 20:16 | XMS_ITS | Encounter Summary ---
Author Organization [facility] Address [address] [place] [phone] Phone Care Team Providers Care Used Car Lot Attendant Name Role Phone Kumar CARRILLO MD, Cash Howard Unavailable [phone] Bhupinder Tobias MD Primary Care Provider [phone] Jorge Aguiar MD Unavailable [phone] Khoa Arias MD Unavailable [phone] Encounter Details Date Type Department Care Team (Late st Contact Info) Description 05/05/2021 Telephone [facility] [address] [place] [phone] Kraig Garcia Social History Tobacco Use Types Packs/Day Years Used Date Smoking Tobacco: Never Alcohol Use Standard Drinks/Week Comments No 0 (1 standard drink = 0.6 oz pur e alcohol) Comments No Sex and Gender Information Value Date Recorded Sex Assigned at Not on file Legal Sex Female 9:24 PM ALLIGATOR SHEAR OPERATOR Gender Identity Female 08/14/2022 11:32 AM CDT Sexual Orientation Straight 02/13/2023 7: 01 AM CDT documented as of this encounter Miscellaneous Notes * Telephone Encounter - Kraig Garcia - 05/05/2021 9:[address] Arias's office, spoke to Omayra. Labs done on 05/02 and still pending. GATOR SHEAR OPERATOR * Telephone Encounter - Willie Garciaconchis - 05/05/2021 9:37 AM CST ----- Message from LEONARD Coreas sent at 05/05/2021 9:22 AM ALLIGATOR SHEAR OPERATOR ----- Regarding: GI results Pt awaiting results of labs from GI Dr. Arias at [place], can you call and see if anything is available yet? GATOR SHEAR OPERATOR documented in this encounter Plan of Treatment Not on file documented as of this encounter Visit Diagnoses Not on filedocumented in this encounter Care Teams Used Car Lot Attendant Relationship Specialty Start Date End Date Bhupinder Tobias MD [address] [address] PCP - General Internal Medicine 06/03/20 Cash Heath III, MD [address] [address] Rheumatology 04/12/17 Jorge Aguiar MD [facility] [address] [address] Consulting Physician Urology 11/10/20 Khoa Arias MD [facility] [address] [address] Referring Physician Gastroenterology 03/20/21 documented as of this encounter
--- OUTSIDE RECORDS SUMMARY | 2024-04-29 20:16 | XMS_ITS | Encounter Summary ---
Author Organization [facility] Address [address] [place] [address] Phone Care Team Providers Care Account Liaison Name Role Phone Kumar CARRILLO MD, Cash Howard Unavailable [phone] Bhupinder Tobias MD Primary Care Provider [phone] Jorge Aguiar MD Unavailable [phone] Khoa Arias MD Unavailable [phone] Reason for Visit * Reason Onset Date Comments Referral Request 07/06/2022 Encounter Details Date Type Department Care Team (Late st Contact Info) Description 07/06/2022 Telephone [facility] Department of Surgery, Section of Colon and Rectal Surgery [address] [facility] Advanced Medicine [address]th Floor, [place] [address] Elena Don CMA Referral Request [...] on file Legal Sex Female 9:24 PM TECHNICAL SUPPORT REPRESENTATIVE Gender Identity Female 08/14/2022 11:32 AM [...] on filedocumented in this encounter Care Teams Account Liaison Relationship Specialty Start Date End Date Bhupinder Tobias MD [address] [place] [address] PCP - General Internal Medicine 06/03/20 Cash Heath III, MD [address] [address] Rheumatology 04/12/17 Jorge Aguiar MD [address] [place] [address] Consulting Physician Urology 11/10/20 Khoa Arias MD [facility] [address] [address] Referring Physician Gastroenterology 03/20/21 documented as of this encounter
--- OUTSIDE RECORDS SUMMARY | 2024-04-29 20:16 | XMS_ITS | Encounter Summary ---
Author Organization [facility] Address [address] [place] [address] Phone Care Team Providers Care Diving Instructor Name Role Phone Kumar CARRILLO MD, Cash Howard Unavailable [phone] Bhupinder Tobias MD Primary Care Provider [phone] Jorge Aguiar MD Unavailable [phone] Khoa Arias MD Unavailable [phone] Encounter Details Date Type Department Care Team (Late st Contact Info) Description 11/27/2021 Telephone [facility] [address] [place] [address] Maisha Avila, RN Social History Tobacco [...] on file Legal Sex Female 9:24 PM BUSINESS ANALYSIS PROFESSIONAL Gender Identity Female 08/14/2022 11:32 AM [...] Smith Sent: 11/27/2021 7:35 AM CDT To: [facility] Subject: Miriam, I am scheduled today [...] appt at 9:45 am. I live in [place], so it takes me about 45 minutes [...] on filedocumented in this encounter Care Teams Diving Instructor Relationship Specialty Start Date End Date Bhupinder Tobias MD [address] [facility] [address] [place] [address] PCP - General Internal Medicine 06/03/20 Cash Heath III, MD [address] [facility] [address] [place] [address] Rheumatology 04/12/17 Jorge Aguiar MD [address] [address] Consulting Physician Urology 11/10/20 Khoa Arias MD [address] [address] Referring Physician Gastroenterology 03/20/21 documented as of this encounter
--- OUTSIDE RECORDS SUMMARY | 2024-04-29 20:16 | XMS_ITS | Encounter Summary ---
Author Organization [facility] Healthcare Address [address] [place] [address] Care Team Providers Care Groundhand Name Role Phone Kumar CARRILLO MD, Cash Howard Unavailable [phone] Bhupinder Tobias MD Primary Care Provider [phone] Jorge Aguiar MD Unavailable [phone] Khoa Arias MD Unavailable [phone] Encounter Details Date Type Department Care Team (Late st Contact Info) Description 08/30/2021 2:40 PM CDT Lab [facility] [address] [address] [facility] [place] [address] Social History Tobacco Use Types Packs/Day Years [...] file Legal Sex Female 9:24 PM COMMERCIAL GLAZIER Gender Identity Female 08/14/2022 11:32 AM CDT [...] mg/dL [facility] Comment: Test Performed by: [facility] [address] [place] [address] Usability Strategist: Curtis Aviles M.D. Ph.D.; CLIA# [id number] Blood 08/30/2021 3:00 PM CDT 08/30/2021 3:44 PM CDT Jack Adhikari DAY WORKER LAB BLOOD ORDERABLES Final Result Performing Organization Address City/State/[facility] Co de Phone Number JL [facility] [address] [facility] [place] [address] documented in this encounter Visit Diagnoses Not on filedocumented in this encounter Care Teams Groundhand Relationship Specialty Start Date End Date Bhupinder Tobias MD [address] [facility] [address] [place], [place] [address] PCP - General Internal Medicine 06/03/20 Cash Heath III, MD [address] [facility] [address] [place] [address] Rheumatology 04/12/17 Jorge Aguiar MD [address] [facility] [address] [place] [address] Consulting Physician Urology 11/10/20 Khoa Arias MD [address] [facility] [address] [place] [address] Referring Physician Gastroenterology 03/20/21 documented as of this encounter
--- OUTSIDE RECORDS SUMMARY | 2024-04-29 20:16 | XMS_ITS | Encounter Summary ---
Author Organization [facility] Address [address] [facility] [address] [place] [address] Phone Care Team Providers Care Pool Nurse Name Role Phone Kumar CARRILLO MD, Cash Howard Unavailable [phone] Bhupinder Tobias MD Primary Care Provider [phone] Jorge Aguiar MD Unavailable [phone] Khoa Arias MD Unavailable [phone] Encounter Details Date Type Department Care Team (Late st Contact Info) Description 11/29/2021 2:15 PM CDT Office Visit [facility] Gastroenterology [address] [place] [address] Medical Office Building [address], [address] [place] [address] Devin Miller MD [address] [place] [address] Diarrhea, unspecified type (Primary Dx) Social History [...] on file Legal Sex Female 9:24 PM CHAMBER WALKER Gender Identity Female 08/14/2022 11:32 AM CDT [...] help her symptoms, currently Cymbalta and now [place] 5/325 1 tablet every 4 hours (since 05/2021). Also at one point was recommended to try nortriptyline however she read the side effect profile and decided not to takethe med. Her home health care provider felt that the elevated lipase symptoms possibly [...] should be investigated. Will discuss with her home health care provider. 2. IBS-C: She has successfully been treated [...] 11/01/2021 added in this encounter Care Teams Pool Nurse Relationship Specialty Start Date End Date Bhupinder Tobias MD [address] [address] PCP - General Internal Medicine 06/03/20 Cash Heath III, MD [address] [facility] 110 [place] [address] Rheumatology 04/12/17 Jorge Aguiar MD [address] [facility] 120 [place] [address] Consulting Physician Urology 11/10/20 Khoa Arias MD [address] [facility] [address] [place] [address] Referring Physician Gastroenterology 03/20/21 documented as of this encounter
--- OUTSIDE RECORDS SUMMARY | 2024-04-29 20:16 | XMS_ITS | Encounter Summary ---
Author Organization [facility] Healthcare Address [address] [place] [address] Care Team Providers Care Relief Captain Name Role Phone Kumar CARRILLO MD, Cash Howard Unavailable [phone] Bhupinder Tobias MD Primary Care Provider [phone] Jorge Aguiar MD Unavailable [phone] Khoa Arias MD Unavailable [phone] Reason for Visit * Auth/Cert Specialty Diagnoses / Procedures Referred By Kaylynn t Referred To Contact Diagnoses Acute pancreatitis, unspecified complication status, unspecified pancreatitis type Acute pancreatitis, unspecified complication status, unspecified pancreatitis type [K85.90] Procedures GA EDG US EXAM SURGICAL ALTER STOM DUODENUM/JEJUNUM US Endoscopy ESOPHAGOGASTRODUODENOSCOPY Referral ID Status Reason Start Date Expiration Date Visits Re quested Visits Authorized [id number] 1 1 Encounter Details Date Type Department Care Team (Late st Contact Info) Description 08/31/2021 10:30 AM CDT - 08/31/2021 11:00 AM CDT Surgery [facility] [address] [place] [address] Devin Miller MD [address] [facility] [address] [place] [address] US Endoscopy Surgery Details Date/Time Status Location OR Service Patient Class Case Class Case Type Trauma Case? 08/31/2021 10:30 AM Posted [facility] ERCP 01 Gastroenterology Outpatient Elective Panel [...] on file Legal Sex Female 9:24 PM TELEVISION ACTOR Gender Identity Female 08/14/2022 11:32 AM CDT [...] MIGRAINE. MAY REPEAT AFTER 2 H IF EMRCADO RETURNS. MAXIMUM 4 TS IN 24 H [...] Female Attending MD: Devin Miller M.D. Room: [facility] 1 Note Status: Finalized Procedure: [...] The Olympus curved linear array therapeutic endosonoscope [id number] was introduced through the and advanced to the GIF H190 [id number] endoscope was introduced through the and advanced [...] On: 08/31/2021 10:04 AM Recognized by the [place] [employer] for promoting quality [...] results best viewed via link to PDF [facility] [place] [address] Note to Patients: This report may contain [...] Gender: ??F : ??1975 (Age: 46) Address: ??[address] [place] [address] ??[address] Hospital #: ??[id number] Taken:08/31/2021 Received:08/31/2021 Reported: 09/01/2021 Patient Type: [facility] [...] Surgical Pathology and Flow Cytometry Departments at [facility] as part of an ongoing clinical quality assurance associate program and in compliance with federally mandated [...] Surgical Pathology and Flow Cytometry Departments of [facility]. ??It has not been cleared or approved by the U. S. Food and Drug Administration. IMAGES AND SCANNED DOCUMENTS, IF INCLUDED, ONLY VIEWABLE IN PDF VERSION OF REPORT Devin Miller MD LAB PATHOLOGY ORDERABLES F inal Result PATHOLOGY [facility] 3rd Floor [place], [place] [phone] * POCT hCG, urine (08/31/2021 10:23 AM CDT) HCG, ur, POC Negative Lot Number [id number]\ QC Backgroud Clear Acceptable QC Control Line [...] Female Attending MD: Devin Miller M.D. Room: [facility] 1 Note Status: Finalized Procedure: [...] was obtained. The Olympuscurved linear array therapeutic [id number] was introduced through the and advanced to the GIF H190 [id number] endoscope was introduced through theand advanced to [...] On: 08/31/2021 10:04 AM Recognized by the [place] [employer] for promoting quality [...] 08/31/2021 documented in this encounter Care Teams Relief Captain Relationship Specialty Start Date End Date Bhupinder Tobias MD [address] [facility] [address] [place] [address] PCP - General Internal Medicine 06/03/20 Cash Heath III, MD [address] [facility] [address] [place] [address] Rheumatology 04/12/17 Jorge Aguiar MD [address] [facility] [address] [place] [address] Consulting Physician Urology 11/10/20 Khoa Arias MD [address] [facility] 120 [place] [address] Referring Physician Gastroenterology 03/20/21 documented as of this encounter
--- OUTSIDE RECORDS SUMMARY | 2024-04-29 20:16 | XMS_ITS | Encounter Summary ---
Author Organization [facility] Address [address] [facility] [address] [place] [address] Phone Care Team Providers Care Food Checkers And Cashiers Supervisor Name Role Phone Kumar CARRILLO MD, Cash Howard Unavailable [phone] Bhupinder Tobias MD Primary Care Provider [phone] Jorge Aguiar MD Unavailable [phone] Khoa Arias MD Unavailable [phone] Reason for Visit * Reason Onset Date Comments Return Call 12/07/2021 Encounter Details Date Type Department Care Team (Late st Contact Info) Description 12/07/2021 Telephone [facility] [address] [place] [address] Medical Office Building [address], [address] [place] [address] Marjorie Diaz, ANTHONY Return Call [...] on file Legal Sex Female 9:24 PM PROOF TECHNICIAN HELPER Gender Identity Female 08/14/2022 11:32 AM [...] on filedocumented in this encounter Care Teams Food Checkers And Cashiers Supervisor Relationship Specialty Start Date End Date Bhupinder Tobias MD [address] [place] [address] PCP - General Internal Medicine 06/03/20 Cash Heath III, MD [address] [address] Rheumatology 04/12/17 Jorge Aguiar MD [address] [place] [address] Consulting Physician Urology 11/10/20 Khoa Arias MD [address] [place] [address] Referring Physician Gastroenterology 03/20/21 documented as of this encounter
--- OUTSIDE RECORDS SUMMARY | 2024-04-29 20:16 | XMS_ITS | Encounter Summary ---
Author Organization [facility] Address [address] [place] [address] Phone Care Team Providers Care Financial Coach Name Role Phone Kumar CARRILLO MD, Cash Howard Unavailable [phone] Bhupinder Tobias MD Primary Care Provider [phone] Jorge Aguiar MD Unavailable [phone] Khoa Arias MD Unavailable [phone] Encounter Details Date Type Department Care Team (Late st Contact Info) Description 05/26/2021 Telephone [facility] [address] [place] [address] Tiara Rainey Social History Tobacco Use Types Packs/Day Years Used Date Smoking Tobacco: Never Alcohol Use Standard Drinks/Week Comments No 0 (1 standard drink = 0.6 oz pur e alcohol) Comments No Sex and Gender Information Value Date Recorded Sex Assigned at Not on file Legal Sex Female 9:24 PM SUPERVISOR FERTILIZER Gender Identity Female 08/14/2022 11:32 AM CDT Sexual Orientation Straight 02/13/2023 7: 01 AM CDT documented as of this encounter Miscellaneous Notes * Telephone Encounter - Tiara Rainey - 05/26/2021 10:47 AM CST Fax received requesting Rigo butts. Lim: JORDANCP Per chart review pt is no longer on Stelara but is now on Orencia IV. PA request archived on Cover My [employer]. RVISOR FERTILIZER documented in this encounter Plan of Treatment Not on file documented as of this encounter Visit Diagnoses Not on filedocumented in this encounter Care Teams Financial Coach Relationship Specialty Start Date End Date Bhupinder Tobias MD [address] [facility] [address] [place] [address] PCP - General Internal Medicine 06/03/20 Cash Heath III, MD [address] [facility] 110 [place] [address] Rheumatology 04/12/17 Jorge Aguiar MD [address] [address] Consulting Physician Urology 11/10/20 Khoa Arias MD [address] [address] Referring Physician Gastroenterology 03/20/21 documented as of this encounter
--- OUTSIDE RECORDS SUMMARY | 2024-04-29 20:16 | XMS_ITS | Encounter Summary ---
Author Organization [facility] Address [address] [place] [address] Phone Care Team Providers Care Bricklayer Supervisor Name Role Phone Kumar CARRILLO MD, Cash Howard Unavailable Bhupinder Tobias MD Primary Care Provider [phone] Jorge Aguiar MD Unavailable [phone] Khoa Arias MD Unavailable [phone] Reason for Visit * Reason Onset Date Comments Abdominal Pain 06/29/2021 Encounter Details Date Type Department Care Team (Late st Contact Info) Description 06/29/[address] [address] Tiara Rainey Abdominal Pain Social History Tobacco Use Types Packs/Day Years Used Date Smoking Tobacco: Never Alcohol Use Standard Drinks/Week Comments No 0 (1 standard drink = 0.6 oz pur e alcohol) Comments No Sex and Gender Information Value Date Recorded Sex Assigned at Not on file Legal Sex Female 9:24 PM LICENSED SALES ASSISTANT Gender Identity Female 08/14/2022 11:32 AM CDT Sexual Orientation Straight 02/13/2023 7: 01 AM CDT documented as of this encounter Miscellaneous Notes * Result Encounter Note - Miriam Frye PA - 06/29/2021 3:03 PM CST Lipase 135 and pt having more abd pain, she was already advised to go to ER. NSED SALES ASSISTANT * Telephone Encounter - Miriam Frye PA - 06/29/2021 2:58 PM CST Labs reviewed and agreed to ER f/u. Discussed with her at last visit that maybe she should go to [facility] er since she was not happy with ER by her house. NSED SALES ASSISTANT * Telephone Encounter - Tiara Rainey - 06/29/2021 2:18 PM CST Pt is having increasing abd pain. Reviewed partial labs in [facility] (hard copy on your desk) & Lipase is elevated (135). Pt advised to go to ER for eval. Pt agrees w/plan. NSED SALES ASSISTANT documented in this encounter Plan of Treatment Not on file documented as of this encounter Procedures Procedure Name Priority Date/Time Associated Diagnosis Comments SCAN - LABS 06/29/2021 2:42 PM LICENSED SALES ASSISTANT documented in this encounter Results * SCAN - LABS (06/29/2021 2:42 PM LICENSED SALES ASSISTANT) Miriam Weiner inal Result documented in this encounter Visit Diagnoses Not on filedocumented in this encounter Care Teams Bricklayer Supervisor Relationship Specialty Start Date End Date Bhupinder Tobias MD [address] [place] [address] PCP - General Internal Medicine 06/03/20 Cash Heath III, MD [address] [facility] [address] [place] [address] Rheumatology 04/12/17 Jorge Aguiar MD [address] [facility] 120 [place] [address] Consulting Physician Urology 11/10/20 Khoa Arias MD [address] [facility] [address] [place] [address] Referring Physician Gastroenterology 03/20/21 documented as of this encounter
--- OUTSIDE RECORDS SUMMARY | 2024-04-29 20:16 | XMS_ITS | Encounter Summary ---
Author Organization [facility] Address [address] [place] [address] Phone Care Team Providers Care Dinker Name Role Phone Kumar CARRILLO MD, Cash Howard Unavailable [phone] Bhupinder Tobias MD Primary Care Provider [phone] Jorge Aguiar MD Unavailable [phone] Khoa Arias MD Unavailable [phone] Encounter Details Date Type Department Care Team (Late st Contact Info) Description 09/11/2021 11:15 AM CDT Office Visit [facility] [address] [place] [address] Miriam Frye PA [address] [place] [address] Psoriatic arthritis (HCC) (Primary Dx); [...] on file Legal Sex Female 9:24 PM SET UP MACHINIST Gender Identity Female 08/14/2022 11:32 AM CDT [...] orencia is scheduled tomorrow. Seeing gi at [facility] now. [place] and egd utd and nl in past [...] orencia is scheduled tomorrow. Seeing gi at [facility] now. [place] and egd utd and nl in past year per pt. Due to burden of dz will give her a short course of oral prednisone. Discussed risks and se of systemic steroids. Past serologies: [facility] panel 08/2019---labs reveal positive anti-GAMING TABLE OPERATOR antibody which is likely a false [...] showed osteoporosis [facility] 08/2019---[facility] labs reveal positive anti-GAMING TABLE OPERATOR antibody which is likely a false [...] orencia is scheduled tomorrow. Seeing gi at [facility] now. [place] and egd utd and nl in past year per pt. Due to burden of dz will give her a short course of oral prednisone. Discussed risks and se of systemic steroids. Past serologies: [facility] panel 08/2019---labs reveal positive anti-GAMING TABLE OPERATOR antibody which is likely a false [...] showed osteoporosis [facility] 08/2019---[facility] labs reveal positive anti-GAMING TABLE OPERATOR antibody which is likely a false [...] Routine 09/11/2021 11:38 AM CDT Psoriatic arthritis ([facility]) Encounter for long-term (current) use of medications CRP (ACUTE PHASE) Routine 09/11/2021 11: 38 AM CDT Psoriatic arthritis ([facility]) Encounter for long-term (current) use of [...] BLOOD ORDERAB LES Final Result [facility] [address] [address] * (ABNORMAL) CRP (acute phase) (09/11/2021 11:38 AM CDT) C-RP 11.0(H) <8.0 mg/L [facility] Blood specimen (specimen) 09/11/2021 11:38 AM CDT 09/11/2021 11:39 AM CDT us Miriam [facility] BLOOD ORDERAB LES Final Result [facility] [address] [address] [address] * Comprehensive metabolic panel (09/11/2021 11:38 AM CDT) Glucose 86 65 - 99 mg/dL [facility] Comment: ? Fasting reference interval BUN 13 7 - 25 mg/dL [facility] Creatinine 0.89 0.50 - 1.10 mg/dL [facility] eGFR NON-AFR. GEORGIAN 77 > OR = 60 mL/min/1. 73m2 [facility] EGFR 89 > OR = 60 mL/min/1. 73m2 [facility] BUN/creat ratio NOT APPLICABLE 6 - 22 (calc) [facility] Sodium 140 135 - 146 mmol/L [facility] Potassium, pl 4.1 3.5 - 5.3 mmol/L [facility] Chloride 104 98 - 110 mmol/L [facility] CO2 26 20 - 32 mmol/L [facility] Calcium 9.0 8.6 - 10.2 mg/dL [facility] Protein, sr 6.8 6.1 - 8.1 g/dL [facility] Albumin 4.0 3.6 - 5.1 g/dL [facility] GLOBULIN 2.8 1.9 - 3.7 g/dL (calc) [facility] Alb/glob ratio 1.4 1.0 - 2.5 (calc) [facility] Bilirubin, total 0.3 0.2 - 1.2 mg/dL [facility] Alk phos 79 31 - 125 U/L [facility] AST 11 10 - 35 U/L [facility] ALT (SGPT) 15 6 - 29 U/L [facility] Blood specimen (specimen) 09/11/2021 11:38 AM CDT 09/11/2021 11:39 AM CDT us Miriam [facility] BLOOD ORDERAB LES Final Result [facility] [address] [address] [address] * (ABNORMAL) CBC with auto differential (09/11/2021 [...] [facility] BLOOD ORDERAB LES Final Result [facility] [address] [place] [address] documented in this encounter Visit Diagnoses Diagnosis [...] documented as of this encounter Care Teams Dinker Relationship Specialty Start Date End Date Bhupinder Tobias MD [address] [place] [address] PCP - General Internal Medicine 06/03/20 Cash Heath III, MD [address] [address] Rheumatology 04/12/17 Jorge Aguiar MD [address] [place] [address] Consulting Physician Urology 11/10/20 Khoa Arias MD [address] [address] Referring Physician Gastroenterology 03/20/21 documented as of this encounter
--- OUTSIDE RECORDS SUMMARY | 2024-04-29 20:16 | XMS_ITS | Encounter Summary ---
Author Organization [facility] Address [address] [place] [address] Phone Care Team Providers Care Bioinformatics Specialist Name Role Phone Kumar CARRILLO MD, Cash Howard Unavailable [phone] Bhupinder Tobias MD Primary Care Provider [phone] Jorge Aguiar MD Unavailable [phone] Khoa Arias MD Unavailable [phone] Encounter Details Date Type Department Care Team (Late st Contact Info) Description 05/23/2021 Telephone [facility] [address] [place] [address] Maisha Avila, RN Social History Tobacco Use Types Packs/Day Years Used Date Smoking Tobacco: Never Alcohol Use Standard Drinks/Week Comments No 0 (1 standard drink = 0.6 oz pur e alcohol) Comments No Sex and Gender Information Value Date Recorded Sex Assigned at Not on file Legal Sex Female 9:24 PM EXHIBITION SPECIALIST Gender Identity Female 08/14/2022 11:32 AM CDT Sexual Orientation Straight 02/13/2023 7: 01 AM CDT documented as of this encounter Miscellaneous Notes * Telephone Encounter - Maisha Avila RN - 05/23/2021 3:06 PM EXHIBITION SPECIALIST Called pt to reschedule Orencia infusion #2 due to weather. Pt states is having lot of abdominal discomfort and may go to ER. Told pt she should keep appt with BB on 06/02 and would reschedule appt after seen. Pt agreeable BITION SPECIALIST documented in this encounter Plan of Treatment Not on file documented as of this encounter Visit Diagnoses Not on filedocumented in this encounter Care Teams Bioinformatics Specialist Relationship Specialty Start Date End Date Bhupinder Tobias MD [address] [facility] 120 [place] [address] PCP - General Internal Medicine 06/03/20 Cash Heath III, MD [address] [facility] [address] [place] [address] Rheumatology 04/12/17 Jorge Aguiar MD [address] [address] Consulting Physician Urology 11/10/20 Khoa Arias MD [address] [address] Referring Physician Gastroenterology 03/20/21 documented as of this encounter
--- OUTSIDE RECORDS SUMMARY | 2024-04-29 20:16 | XMS_ITS | Encounter Summary ---
Author Organization [facility] Healthcare Address [address] [place] [address] Care Team Providers Care Manager Payment Name Role Phone Kumar CARRILLO MD, Cash Howard Unavailable [phone] Bhupinder Tobias MD Primary Care Provider [phone] Jorge Aguiar MD Unavailable [phone] Khoa Arias MD Unavailable [phone] Encounter Details Date Type Department Care Team (Latest Contact Info) Description 08/16/2022 9:04 AM CDT - 08/16/2022 11:59 PM CDT Hospital Encounter [facility] [address] [place] [address] Discharge Disposition: Discharge to home or self [...] on file Legal Sex Female 9:24 PM TIMBER WATCHMAN Gender Identity Female 08/14/2022 11:32 AM CDT [...] only and have not been reviewed by [facility] Radiology. ??There will be no report generated by a [facility] Radiologist. Narrative [facility] - 08/16/2022 9:04 AM CDT EXAMINATION: ??Images For Reference Purposes Only us Jose De Jesus Calderon MD IMG CT PROCEDURES Final Resu lt [facility] documented in this encounter Visit Diagnoses Not on filedocumented in this encounter Care Teams Manager Payment Relationship Specialty Start Date End Date Bhupinder Tobias MD [address] [place] [address] PCP - General Internal Medicine 06/03/20 Cash Heath III, MD [address] [facility] [address] [place] [address] Rheumatology 04/12/17 Jorge Aguiar MD [address] [facility] [address] [place] [address] Consulting Physician Urology 11/10/20 Khoa Arias MD [address] [facility] [address] [place] [address] Referring Physician Gastroenterology 03/20/21 documented as of this encounter
--- OUTSIDE RECORDS SUMMARY | 2024-04-29 20:16 | XMS_ITS | Encounter Summary ---
Author Organization [facility] Address [address] [place] [address] Phone Care Team Providers Care Hoop Punch And Coiler Operator Helper Name Role Phone Kumar CARRILLO MD, Cash Howard Unavailable [phone] Bhupinder Tobias MD Primary Care Provider [phone] Jorge Aguiar MD Unavailable [phone] Khoa Arias MD Unavailable [phone] Encounter Details Date Type Department Care Team (Late st Contact Info) Description 05/05/2021 9:00 AM HEAD SOFT SUGAR OPERATOR Office Visit [facility] [address] [place] [phone] Ghazala Ulloa PA [address] [place] [address] Psoriatic arthritis (CMS/HCC) (HCC) (Primary Dx); [...] file Legal Sex Female 9:24 PM HEAD SOFT SUGAR OPERATOR Gender Identity Female 08/14/2022 11:32 AM [...] lb 9.6 oz) 05/05/2021 8:59 A M HEAD SOFT SUGAR OPERATOR Height - - Body Mass Index 31.73 06/03/2020 3:14 PM HEAD SOFT SUGAR OPERATOR documented in this encounter Patient Instructions * Patient Instructions* Ghazala Ulloa PA - 05/05/2021 9:00 AM HEAD SOFT SUGAR OPERATOR Increase leflunomide to 20mg daily. If you have a lot of the 10mg tablets left, you can take 2 of these and use them up first. We also sent a prescription for the 20mg strength tablets to your pharmacy. SOFT SUGAR OPERATOR documented in this encounter Ordered Prescriptions Prescription [...] Recently passed kidney stone. Had CT at [facility] on 04/28/20 which showed small bilat calyceal [...] Past serologies: [facility] panel 08/2019---labs reveal positive anti-BEHAVIOR INTERVENTIONIST antibody which is likely a false positive [...] showed osteoporosis [facility] 08/2019---[facility] labs reveal positive anti-BEHAVIOR INTERVENTIONIST antibody which is likely a false positive [...] Woodruff III, MD at 05/08/2021 4:32 PM HEAD SOFT SUGAR OPERATOR SOFT SUGAR OPERATOR SOFT SUGAR OPERATOR documented in this encounter Miscellaneous Notes * Assessment & Plan Note - Ghazala Ulloa PA - 05/05/2021 10:12 PM HEAD SOFT SUGAR OPERATOR Associated Problem(s): Abdominal pain Having abd pain, bloating, constipation. On meds for IBS and also using suppositories to have BM. Incidental findings of mesenteric fat stranding (adenitis or panniculitis) on abd CT. Awaiting further eval by Dr. Arias. SOFT SUGAR OPERATOR * Assessment & Plan Note - Miriam [...] Past serologies: [facility] panel 08/2019---labs reveal positive anti-BEHAVIOR INTERVENTIONIST antibody which is likely a false positive due tonegative ASHLEY. ?? RF neg but has a possible family hx of psoriatic arthritis (father) so if she develops psoriasis diagnosis will change to psoriatic arthritis. Rt hand US 09/2019 showed: ??F/u 1 month. SOFT SUGAR OPERATOR SOFT SUGAR OPERATOR * Assessment & Plan Note - Miriam Frye PA - 05/04/2021 8:19 AM CSTAssociated Problem(s): Osteoporosis without current pathological fracture bds checked by pcp in past, is taking ca and vit d and pcp checked vit D and PTH per pt was wnl. Her pcp started her on alendronate 70mg po qweek. Taking ca + vit d 1200mg qd. SOFT SUGAR OPERATOR * Assessment & Plan Note - Miriam [...] showed osteoporosis Avise 08/2019---[facility]ise labs reveal positive anti-BEHAVIOR INTERVENTIONIST antibody which is likely a false positive due tonegative ASHLEY. Her father had psoriasis, pt changed from ra to PsA on 03/25/2020. ?? SOFT SUGAR OPERATOR documented in this encounter Plan of Treatment Not on file documented as of this encounter Procedures Procedure Name Priority Date/Time Associated Diagnosis Comments CBC WITH AUTO DIFFERENTIAL Routine 05/05/2021 9:44 AM HEAD SOFT SUGAR OPERATOR Psoriatic arthritis (CMS/HCC) ([facility]) Encounter for long-term (current) use of medications ERYTHROCYTE SEDIMENTATION RATE Routine 05/05/2021 9:44 AM HEAD SOFT SUGAR OPERATOR Psoriatic arthritis ([facility]/HCC) ([facility]) Encounter for long-term (current) use of medications CRP (ACUTE PHASE) Routine 05/05/2021 9:4 4 AM HEAD SOFT SUGAR OPERATOR Psoriatic arthritis ([facility]) ([facility]) Encounter for long-term (current) use of medications COMPREHENSIVE METABOLIC PANEL Routine 05/05/2021 9:44 AM HEAD SOFT SUGAR OPERATOR Psoriatic arthritis ([facility]) ([facility]) Encounter for long-term (current) use of medications documented in this encounter Results * Erythrocyte sedimentation rate (05/05/2021 9:44 AM HEAD SOFT SUGAR OPERATOR) Erythrocyte sedimentation rate 8 < OR = 20 mm/h [facility] Blood specimen (specimen) 05/05/2021 9:44 AM HEAD SOFT SUGAR OPERATOR 05/05/2021 9:45 AM HEAD SOFT SUGAR OPERATOR us Ghazala VALLE LAB BLOOD ORDERABLES Fin al Result [facility] [address] [place] [address] * CRP (acute phase) (05/05/2021 9:44 AM HEAD SOFT SUGAR OPERATOR) C-RP 5.6 <8.0 mg/L [facility] Blood specimen (specimen) 05/05/2021 9:44 AM HEAD SOFT SUGAR OPERATOR 05/05/2021 9:45 AM HEAD SOFT SUGAR OPERATOR us Ghazala VALLE LAB BLOOD ORDERABLES Fin al Result [facility] [address] [place] [address] * Comprehensive metabolic panel (05/05/2021 9:44 AM HEAD SOFT SUGAR OPERATOR) Glucose 90 65 - 99 mg/dL [facility] Comment: ? Fasting reference interval BUN 14 7 - 25 mg/dL [facility] Creatinine 1.08 0.50 - 1.10 mg/dL [facility] eGFR NON-AFR. ALBANIAN 62 > OR = 60 mL/min/1. 73m2 [facility] EGFR 71 > OR = 60 mL/min/1. 73m2 [facility] BUN/creat ratio NOT APPLICABLE 6 - 22 (calc) [facility] Sodium 136 135 - 146 mmol/L [facility] Potassium, pl 4.3 3.5 - 5.3 mmol/L [facility] Chloride 104 98 - 110 mmol/L [facility] CO2 25 20 - 32 mmol/L [facility] Calcium 9.3 8.6 - 10.2 mg/dL [facility] Protein, sr 6.7 6.1 - 8.1 g/dL [facility] Albumin 4.0 3.6 - 5.1 g/dL [facility] GLOBULIN 2.7 1.9 - 3.7 g/dL (calc) [facility] Alb/glob ratio 1.5 1.0 - 2.5 (calc) [facility] Bilirubin, total 0.3 0.2 - 1.2 mg/dL [facility] Alk phos 84 31 - 125 U/L [facility] AST 11 10 - 35 U/L [facility] ALT (SGPT) 14 6 - 29 U/L [facility] Blood specimen (specimen) 05/05/2021 9:44 AM HEAD SOFT SUGAR OPERATOR 05/05/2021 9:45 AM HEAD SOFT SUGAR OPERATOR Ghazala VALLE LAB BLOOD ORDERABLES Fin al Result [facility] [address] [place] [address] * CBC with auto differential (05/05/2021 9:44 AM HEAD SOFT SUGAR OPERATOR) WBC 7.0 3.8 - 10.8 Thousand/u L [...] [facility] Blood specimen (specimen) 05/05/2021 9:44 AM HEAD SOFT SUGAR OPERATOR 05/05/2021 9:45 AM HEAD SOFT SUGAR OPERATOR Ghazala VALLE LAB BLOOD ORDERABLES Fin al Result [facility] [address] [place] [address] documented in this encounter Visit Diagnoses Diagnosis [...] documented as of this encounter Care Teams Hoop Punch And Coiler Operator Helper Relationship Specialty Start Date End Date Bhupinder Tobias MD [address] [place] [address] PCP - General Internal Medicine 06/03/20 Cash Woodruff III, MD [address] [place] [address] Rheumatology 04/12/17 Jorge Aguiar MD [address] [place] [address] Consulting Physician Urology 11/10/20 Khoa Arias MD [address] [place] [address] Referring Physician Gastroenterology 03/20/21 documented as of this encounter
--- OUTSIDE RECORDS SUMMARY | 2024-04-29 20:16 | XMS_ITS | Encounter Summary ---
Author Organization [facility] Address [address] [place] [address] Phone Care Team Providers Care Certified Pedorthotist Name Role Phone Kumar CARRILLO MD, Cash Howard Unavailable Bhupinder Tobias MD Primary Care Provider [phone] Jorge Aguiar MD Unavailable [phone] Khoa Arias MD Unavailable [phone] Encounter Details Date Type Department Care Team (Late st Contact Info) Description 03/31/2021 Telephone [facility] [address] [place] [phone] Miriam Frye PA [address] [place] [address] Social History Tobacco Use Types Packs/Day Years Used Date Smoking Tobacco: Never Alcohol Use Standard Drinks/Week Comments No 0 (1 standard drink = 0.6 oz pur e alcohol) Comments No Sex and Gender Information Value Date Recorded Sex Assigned at Not on file Legal Sex Female 9:24 PM RIBBON HANKING MACHINE OPERATOR Gender Identity Female 08/14/2022 11:32 AM CDT Sexual Orientation Straight 02/13/2023 7: 01 AM CDT documented as of this encounter Miscellaneous Notes * Telephone Encounter - Maisha Avila RN - 04/04/2021 4:47 PM RIBBON HANKING MACHINE OPERATOR Scheduled ON HANKING MACHINE OPERATOR * Telephone Encounter - Miriam Frye PA - 03/31/2021 9:18 AM CST Please try to schedule her orencia iv soon, she is pretty flared up. ty ON HANKING MACHINE OPERATOR documented in this encounter Plan of Treatment Not on file documented as of this encounter Visit Diagnoses Not on filedocumented in this encounter Care Teams Certified Pedorthotist Relationship Specialty Start Date End Date Bhupinder Tobias MD [address] [place] [address] PCP - General Internal Medicine 06/03/20 Cash Heath III, MD [address] [address] Rheumatology 04/12/17 Jorge Aguiar MD [address] [place] [address] Consulting Physician Urology 11/10/20 Khoa Arias MD [address] [place] [address] Referring Physician Gastroenterology 03/20/21 documented as of this encounter
--- OUTSIDE RECORDS SUMMARY | 2024-04-29 20:16 | XMS_ITS | Encounter Summary ---
Author Organization [facility] Address [address] [facility] [address] [place] [address] Phone Care Team Providers Care Chalker Soles Name Role Phone Kumar CARRILLO MD, Cash Howard Unavailable [phone] Bhupinder Tobias MD Primary Care Provider [phone] Jorge Aguiar MD Unavailable [phone] Khoa Arias MD Unavailable [phone] Reason for Visit * Reason Comments Diverticulitis New Patient Encounter Details Date Type Department Care Team (Latest Contact Info) Description 08/14/2022 3:15 PM CDT Telemedicine [facility] Surgery [address] [place] [address] Medical Office Building [address] [place] [address] Jose De Jesus Calderon MD [address] [facility] [phone] [place] [address] Diverticulitis large intestine w/o perforation or abscess [...] on file Legal Sex Female 9:24 PM LIFEGUARD Gender Identity Female 08/14/2022 11:32 AM CDT [...] heavy Migraine Peptic ulceration RA (rheumatoid arthritis) ([facility]) Past Surgical History: Procedure Laterality Date SECTION [...] visit. Physical exam: Not performed Assessment: Madalyn mSith is a 47 y.o. female with diverticulitis [...] the patient was located home in the [facility]. The patient visit started at 2 [...] a telephone or video [facility] explained to them. After being given [...] Primary documented in this encounter Care Teams Chalker Soles Relationship Specialty Start Date End Date Bhupinder Tobias MD [address] [facility] 120 [place] [address] PCP - General Internal Medicine 06/03/20 Cash Heath III, MD [address] [facility] [address] [place] [address] Rheumatology 04/12/17 Jorge Aguiar MD [address] [facility] [address] [facility] 120 [place] [address] Consulting Physician Urology 11/10/20 Khoa Arias MD [address] [facility] [address] [place] [address] [address] [place] [address] Referring Physician Gastroenterology 03/20/21 documented as of this encounter
--- OUTSIDE RECORDS SUMMARY | 2024-04-29 20:16 | XMS_ITS | Encounter Summary ---
Author Organization [facility] Address [address] [place] [address] Phone Care Team Providers Care Doctor Of Veterinary Medicine Name Role Phone Kumar CARRILLO MD, Cash Howard Unavailable Bhupinder Tobias MD Primary Care Provider [phone] Jorge Aguira MD Unavailable [phone] Khoa Arias MD Unavailable [phone] Encounter Details Date Type Department Care Team (Late st Contact Info) Description 08/10/2021 Telephone [facility] [address] [place] [phone] Miriam Frye PA [address] [place] [address] Social History Tobacco Use Types Packs/Day Years Used Date Smoking Tobacco: Never Alcohol Use Standard Drinks/Week Comments No 0 (1 standard drink = 0.6 oz pur e alcohol) Comments No Sex and Gender Information Value Date Recorded Sex Assigned at Not on file Legal Sex Female 9:24 PM SLASHER TENDER Gender Identity Female 08/14/2022 11:32 AM [...] on filedocumented in this encounter Care Teams Doctor Of Veterinary Medicine Relationship Specialty Start Date End Date Bhupinder Tobias MD [facility] [address] [facility] [address] [place] [address] PCP - General Internal Medicine 06/03/20 Cash Heath III, MD [address] [facility] [address] [place] [address] Rheumatology 04/12/17 Jorge Aguiar MD [facility] [address] [facility] [address] [place] [address] Consulting Physician Urology 11/10/20 Khoa Arias MD [facility] [address] [facility] [address] [place] [address] Referring Physician Gastroenterology 03/20/21 documented as of this encounter
--- OUTSIDE RECORDS SUMMARY | 2024-04-29 20:16 | XMS_ITS | Encounter Summary ---
Author Organization [facility] Address [address] [place] [address] Care Team Providers Care Bus Driver/Monitor Name Role Phone Kumar CARRILLO MD, Cash Howard Unavailable [phone] Bhupinder Tobias MD Primary Care Provider [phone] Jorge Aguiar MD Unavailable [phone] Khoa Arias MD Unavailable [phone] Reason for Visit * Reason Comments Abdominal Pain Encounter Details Date Type Department Care Team (Late st Contact Info) Description 07/23/2021 7:32 PM CDT - 07/24/2021 12:47 AM CDT Emergency [facility] Emergency Department [address] [place] [address] Garrison Rhoades MD 1 [facility] [address] [place] [address] Teresita Esparza MD [address] [facility] [address] [place] [address] Aspiration pneumonia, unspecified aspiration pneumonia [...] on file 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 While here, you had labs and imaging performed which did not show any signs of an acute pancreatitis, lungclot, or obstructive kidney stones, we believe your symptoms are due to your chronic pancreatitis and a new aspiration pneumonia we believe is due to your vomiting. Please follow up with your Medical Director/Head Team Physician and Primary Care Physician in 2-4 days [...] sent through Care Everywhere. * Aspiration Pneumonia (Air Conditioning Manager) (Icelandic) documented in this encounter Medications at Time [...] mildly elevated lipase started on amitriptyline. Her aba therapist stopped her psoriatric medications as thought it [...] tachycardia patient reports she was seen by trim machine adjuster in [facility]: Alcohol: Rare use, Drug use: Denies [...] alert. Psychiatric: Mood and Affect: Mood normal. [facility] Medical Decision Making Differential Diagnosis or Management [...] of lung (HCC) Sophia Bahena MD 07/24/21 3345 Sophia Bahena MD 07/26/21 2154 I have seen and examined the patient [...] in the ED Miller Schrader MD 07/23/21 9227 documented in this encounter Plan of Treatment [...] microscopic only (07/23/2021 9:47 PM CDT) Pathologist [facility] WBC, ur 0-5 0 - 5 /HPF [facility] RBC, ur 21-50(A) 0 - 2 /HPF [facility] Epithelial cells, squamous, ur 6-10(A) 0 - 5 /HPF [facility] Comment:Suggestive of contam ination. Consider recollection by clean catch. Mucous, ur Present(A) [facility] Culture Reflex Comment Reflex conditions for urine culture (WBC >10) not met. [facility] Urine 07/23/2021 9:47 PM CDT 07/23/2021 10:13 PM CDT Sophia Bahena MD LAB URINE ORDERABLES Final Result [facility] Department [place] [address] * (ABNORMAL) Urinalysis reflex to microscopic and culture Urine (07/23/2021 9:47 PM CDT) Color, ur Yellow Yellow [facility] Clarity, ur Clear Clear [facility] Specific gravity, ur 1.025 1.003 - 1.030 [facility] pH, urine 6.0 [facility] Protein, ur ql Trace Negative [facility] Glucose, ur ql Negative Negative [facility] Ketones, ur Negative Negative [facility] Bilirubin, ur Negative Negative [facility] Blood, ur 1+(A) Negative [facility] Urobilinogen, ur <2.0 <2.0 mg/dL [facility] Nitrite, ur Negative Negative [facility] Leukocyte esterase, ur 1+(A) Negative [facility] UA reflex comment Reflex to microscopic UA will be performed. [facility] Urine 07/23/2021 9:47 PM CDT 07/23/2021 10:13 PM CDT Narrative [facility] - 07/23/2021 10:16 PM CDT ?? Urine pH is affected by diet, medications, systemic acid-base disturbances, and renal tubular function. ??pH may affect urinary stone formation. ??For example, urine pH below 6.0 may help reduce the tendency for calcium phosphate stones and pH greater than 6.0 may reduce the tendency for uric acid stone formation. Source: [facility] Flumes. Last revised 05-02-2017 Sophia Bahena MD LAB MICROBIOLOGY - GENERAL ORDERABLES Final Result [facility] Department [place] [address] * (ABNORMAL) eGFR (07/23/2021 9:11 PM CDT) eGFR 67(L) 90 - 130 mL/min/1. 73 m2 [facility] Comment: Interpretive Data Reference Interval Normal ?>/= [...] Bahena MD LAB BLOOD ORDERABLES Final Result [facility] Department [place] [address] * (ABNORMAL) Differential, auto (07/23/2021 9:11 PM CDT) Neutrophil abs 12.6(H) 1.7 - 6.5 K/cumm [facility] Imm gran abs 0.1 0.0 - 0.1 K/cumm [facility] Lymphocyte abs 1.7 0.8 - 3.3 K/cumm [facility] Monocyte abs 0.7 0.2 - 0.8 K/cumm [facility] Eosinophil abs 0.2 0.0 - 0.5 K/cumm [facility] Basophil abs 0.1 0.0 - 0.1 K/cumm [facility] Neutrophil pct 81.9 % [facility] Comment: Interpretive Data Percent cell count reference ranges are not reported, since discordance with absolute values may lead to misinterpretation of CBC data. Current Interpretive Data was last revised on 2017. Imm gran pct 0.4 % [facility] Comment: Interpretive Data Percent cell count reference ranges are not reported, since discordance with absolute values may lead to misinterpretation of CBC data. Current Interpretive Data was last revised on 2017. Lymphocyte pct 11.1 % [facility] Comment: Interpretive Data Percent cell count reference ranges are not reported, since discordance with absolute values may lead to misinterpretation of CBC data. Current Interpretive Data was last revised on 2017. Monocyte pct 4.5 % [facility] Comment: Interpretive Data Percent cell count reference ranges are not reported, since discordance with absolute values may lead to misinterpretation of CBC data. Current Interpretive Data was last revised on 2017. Eosinophil pct 1.4 % [facility] Comment: Interpretive Data Percent cell count reference ranges are not reported, since discordance with absolute values may lead to misinterpretation of CBC data. Current Interpretive Data was last revised on 2017. Basophil pct 0.7 % [facility] Comment: Interpretive Data Percent cell count reference ranges are not reported, since discordance with absolute values may lead to misinterpretation of CBC data. Current Interpretive Data was last revised on 2017. Blood 07/23/2021 9:11 PM CDT 07/23/2021 9:53 PM CDT Sophia Bahena MD LAB BLOOD ORDERABLES Final Result Performing Organization Address City/State/[facility] Co de Phone Number [facility] Department [place] [address] * Lipid panel (07/23/2021 9:11 PM CDT) [...] revised on 2017. Triglycerides 85 <=149 mg/dL [facility] Comment: Interpretive Data Ages < or = [...] revised on 2017. HDL 55 >=40 mg/dL [facility] Comment: Interpretive Data Ages < or = [...] on 2017. LDL, calculated 113 <=129 mg/dL [facility] Comment: Interpretive Data Ages < or = [...] on 2017. Non-HDL Cholesterol 130 mg/dL [facility] Comment: Interpretive Data Ages < or = [...] last revised on 2017. Chol/HDL ratio 3 [facility] Blood 07/23/2021 9:11 PM CDT 07/23/2021 9:53 PM CDT us Sophia Bahena MD LAB BLOOD ORDERABLES Final Result [facility] Department [place] [address] * Magnesium (07/23/2021 9:11 PM CDT) Pathologist [facility] Magnesium 1.9 1.4 - 2.5 mg/dL [facility] Blood 07/23/2021 9:11 PM CDT 07/23/2021 9:53 PM CDT Sophia Bahena MD LAB BLOOD ORDERABLES Final Result Performing Organization Address City/[facility]/ZIP Co de Phone Number [facility] Department [place] [address] * Lipase (07/23/2021 9:11 PM CDT) [facility] Lipase 67 10 - 99 Units/L [facility] Blood 07/23/2021 9:11 PM CDT 07/23/2021 9:53 PM CDT Sophia Bhaena MD LAB BLOOD ORDERABLES Final Result Performing Organization Address [facility] de Phone Number [facility] Department [place] [address] * Comprehensive metabolic panel (07/23/2021 9:11 PM CDT) [facility] Sodium 138 135 - 145 mmol/L [facility] Potassium, pl 3.8 3.3 - 4.9 mmol/L [facility] Chloride 103 97 - 110 mmol/L [facility] CO2 25 22 - 32 mmol/L [facility] Anion gap 10 2 - 15 mmol/L [facility] BUN 12 8 - 25 mg/dL [facility] Creatinine 1.03 0.60 - 1.10 mg/dL [facility] Glucose 94 70 - 199 mg/dL [facility] Comment: Interpretive Data Fasting glucose >/= 126 [...] 2017. Calcium 9.0 8.5 - 10.3 mg/dL [facility] Bilirubin, total 0.5 0.1 - 1.2 mg/dL [facility] Protein, pl 6.9 6.5 - 8.5 g/dL [facility] Albumin 3.9 3.5 - 5.0 g/dL [facility] Alk phos 91 40 - 130 Units/L [facility] ALT 37 7 - 45 Units/L [facility] AST 23 10 - 45 Units/L [facility] Blood 07/23/2021 9:11 PM CDT 07/23/2021 9:53 PM CDT Sophia Bahena MD LAB BLOOD ORDERABLES Final Result [facility] Department [place] [address] * (ABNORMAL) CBC with auto differential (07/23/2021 9:11 PM CDT) WBC 15.4(H) 3.8 - 9.9 K/cumm [facility] Hgb 13.3 11.9 - 15.5 g/dL [facility] Hct 40.9 35.6 - 45.5 % [facility] Plt 307 150 - 400 K/cumm [facility] MPV 8.9(L) 9.1 - 12.3 fL [facility] RBC 4.66 3.90 - 5.20 M/cumm [facility] MCV 87.8 81.3 - 96.4 fL [facility] MCH 28.5 27.1 - 33.3 pg [facility] MCHC 32.5 32.3 - 35.7 g/dL [facility] RDW CV 14.5 11.1 - 14.9 % [facility] RDW SD 46.3 35.7 - 48.1 fL [facility] NRBC abs 0.00 0.00 - 0.01 K/cumm [facility] Blood 07/23/2021 9:11 PM CDT 07/23/2021 9:53 PM CDT Sophia Bahena MD LAB BLOOD ORDERABLES Final Result Performing Organization Address City/State/[facility] Co de Phone Number [facility] Department [place] [address] * ECG 12-LEAD (07/23/2021 6:57 PM CDT) Narrative [facility] - 07/23/2021 6:57 PM CDT [...] follow up: further workup in the ED Milelr Schrader MD 07/23/21 6992 us Garrison Rhoades MD ECG ORDERABLES Final Result [facility] documented in this encounter Visit [...] RT) documented in this encounter Care Teams Bus Driver/Monitor Relationship Specialty Start Date End Date Bhupinder Tobias MD [address] [facility] [address] [place] [address] PCP - General Internal Medicine 06/03/20 Cash Heath III, MD [address] [facility] [address] [place] [address] Rheumatology 04/12/17 Jorge Aguiar MD [address] [facility] [address] [place] [address] Consulting Physician Urology 11/10/20 Khoa Arias MD [address] [address] Referring Physician Gastroenterology 03/20/21 documented as of this encounter
--- OUTSIDE RECORDS SUMMARY | 2024-04-29 20:16 | XMS_ITS | Encounter Summary ---
Author Organization [facility] Address [address] [place] [phone] Phone Care Team Providers Care Flat Sorting Machine Clerk Name Role Phone Kumar CARRILLO MD, Cash Howard Unavailable [phone] Bhupinder Tobias MD Primary Care Provider [phone] Jorge Aguiar MD Unavailable [phone] Khoa Arias MD Unavailable [phone] Encounter Details Date Type Department Care Team (Late st Contact Info) Description 02/26/2022 11:15 AM CUSTOMER CONTACT SALES ASSOCIATE Office Visit [facility] [address] [place] [address] Miriam Frye PA [address] [place] [address] Psoriatic arthritis (HCC) (Primary Dx); Encounter [...] file Legal Sex Female 9:24 PM CUSTOMER 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 SALES 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 Gender Identity Female 08/14/2022 11:32 AM CDT Sexual Orientation Straight 02/13/2023 7: 01 AM CDT documented as of this encounter Last Filed Vital Signs Vital Sign Reading Time Taken Comments Blood Pressure 122/86 02/26/2022 11:31 AM CUSTOMER CONTACT SALES ASSOCIATE Pulse 95 02/26/2022 11:31 AM CUSTOMER CONTACT SALES ASSOCIATE Temperature - - Respiratory Rate - - Oxygen Saturation 100% 02/26/2022 11:31 AM CUSTOMER CONTACT SALES ASSOCIATE Inhaled Oxygen Concentration - - Weight 89.2 kg (196 lb 9.6 oz) 02/26/2022 11:31 AM CUSTOMER CONTACT SALES ASSOCIATE Height 166.4 cm (5' 5.5 ) 02/26/2022 11:31 AM CS T Body Mass Index 32.22 02/26/2022 11:31 AM CUSTOMER CONTACT SALES ASSOCIATE documented in this encounter Progress Notes * [...] orencia is scheduled tomorrow. Seeing gi at [facility] now. [place] and egd utd and nl in past [...] arava due to lipaseelevation. Seeing gi at [facility] now. [place] and egd utd and nl in past year per pt. Had a nl pancreatic US recently with gi. She could be flaring up since her orencia is due tomorrow, overall she still feels that it is helping her joints. Past serologies: [facility] panel 08/2019---labs reveal positive anti-CELLO TEACHER antibody which is likely a false positive [...] showed osteoporosis [facility] 08/2019---[facility] labs reveal positive anti-CELLO TEACHER antibody which is likely a false positive due tonegative ASHLEY. Her father had psoriasis, pt changed from ra to PsA on 03/25/2020. Orders: - CBC with auto differential; Future - CRP (acute phase); Future - Erythrocyte sedimentation rate; Future - Comprehensive metabolic panel; Future Cosigned by Cash Heath III, MD at 02/26/2022 3:55 PM CUSTOMER CONTACT SALES ASSOCIATE OMER CONTACT SALES ASSOCIATE OMER CONTACT SALES ASSOCIATE documented in this encounter Miscellaneous Notes * Assessment & Plan Note - Miriam Frye PA - 02/26/2022 8:16 AM CSTAssociated Problem(s): Psoriatic arthritis (HCC) Images from the original note were not included. High cdai. Her orencia is scheduled tomorrow. Continue orencia monotherapy. Off arava due to lipaseelevation. Seeing gi at [facility] now. [place] and egd utd and nl in past year per pt. Had a nl pancreatic US recently with gi. She could be flaring up since her orencia is due tomorrow, overall she still feels that it is helping her joints. Past serologies: [facility] panel 08/2019---labs reveal positive anti-CELLO TEACHER antibody which is likely a false positive due tonegative ASHLEY. ?? RF neg but has a possible family hx of psoriatic arthritis (father) so if she develops psoriasis diagnosis will change to psoriatic arthritis. Rt hand US 09/2019 showed: ??F/u 1 month. OMER CONTACT SALES ASSOCIATE OMER CONTACT SALES ASSOCIATE * Assessment & Plan Note - Miriam [...] showed osteoporosis [facility] 08/2019---[facility] labs reveal positive anti-CELLO TEACHER antibody which is likely a false positive due tonegative ASHLEY. Her father had psoriasis, pt changed from ra to PsA on 03/25/2020. ?? OMER CONTACT SALES ASSOCIATE documented in this encounter Plan of Treatment Not on file documented as of this encounter Procedures Procedure Name Priority Date/Time Associated Diagnosis Comments CBC WITH AUTO DIFFERENTIAL Routine 02/26/2022 11:59 AM CUSTOMER CONTACT SALES ASSOCIATE Psoriatic arthritis (HCC) Encounter for long-term (current) use of medications ERYTHROCYTE SEDIMENTATION RATE Routine 02/26/2022 11:59 AM CUSTOMER CONTACT SALES ASSOCIATE Psoriatic arthritis (HCC) Encounter for long-term (current) use of medications CRP (ACUTE PHASE) Routine 02/26/2022 11: 59 AM CUSTOMER CONTACT SALES ASSOCIATE Psoriatic arthritis (HCC) Encounter for long-term (current) use of medications COMPREHENSIVE METABOLIC PANEL Routine 02/26/2022 11:59 AM CUSTOMER CONTACT SALES ASSOCIATE Psoriatic arthritis (HCC) Encounter for long-term (current) use of medications documented in this encounter Results * Comprehensive metabolic panel (02/26/2022 11:59 AM CUSTOMER CONTACT SALES ASSOCIATE) Glucose 83 65 - 99 mg/dL [facility] Comment: ? Fasting reference interval BUN 15 7 - 25 mg/dL [facility] Creatinine 0.97 0.50 - 0.99 mg/dL [facility] eGFR 73 > OR = 60 mL/min/1. 73m2 [facility] Comment: The eGFR is based on the CKD-EPI 2020 equation. To calculate the new eGFR from a previous Creatinine or Cystatin C result, go to https://www.kidney.org/professionals/ kdoqi/gfr%5Fcalculator BUN/creat ratio NOT APPLICABLE 6 - 22 (calc) [facility] Sodium 136 135 - 146 mmol/L [facility] Potassium, pl 4.4 3.5 - 5.3 mmol/L [facility] Chloride 104 98 - 110 mmol/L [facility] CO2 25 20 - 32 mmol/L [facility] Calcium 9.6 8.6 - 10.2 mg/dL [facility] Protein, sr 7.1 6.1 - 8.1 g/dL [facility] Albumin 4.4 3.6 - 5.1 g/dL [facility] GLOBULIN 2.7 1.9 - 3.7 g/dL (calc) [facility] Alb/glob ratio 1.6 1.0 - 2.5 (calc) [facility] Bilirubin, total 0.3 0.2 - 1.2 mg/dL [facility] Alk phos 64 31 - 125 U/L [facility] AST 14 10 - 35 U/L [facility] ALT (SGPT) 15 6 - 29 U/L [facility] Blood 02/26/2022 11:5 9 AM CUSTOMER CONTACT SALES ASSOCIATE 02/26/2022 11:59 AM CUSTOMER CONTACT SALES ASSOCIATE Miriam VALLE LAB BLOOD ORDERAB LES Final Result Performing Organization Address City/[facility] Co de Phone Number [facility] [address] [place] [address] * Erythrocyte sedimentation rate (02/26/2022 11:59 AM CUSTOMER CONTACT SALES ASSOCIATE) Pathologist [facility] Erythrocyte sedimentation rate 6 < OR = 20 mm/h [facility] Blood 02/26/2022 11:5 9 AM CUSTOMER CONTACT SALES ASSOCIATE 02/26/2022 11:59 AM CUSTOMER CONTACT SALES ASSOCIATE Miriam VALLE LAB BLOOD ORDERAB LES Final Result Performing Organization Address [facility] Co de Phone Number [facility] [address] [place] [address] * CRP (acute phase) (02/26/2022 11:59 AM CUSTOMER CONTACT SALES ASSOCIATE) Pathologist [facility] C-RP 6.2 <8.0 mg/L [facility] Blood 02/26/2022 11:5 9 AM CUSTOMER CONTACT SALES ASSOCIATE 02/26/2022 11:59 AM CUSTOMER CONTACT SALES ASSOCIATE Miriam VALLE LAB BLOOD ORDERAB LES Final Result Performing Organization Address [facility] de Phone Number [facility] [address] [place] [address] * CBC with auto differential (02/26/2022 11:59 AM CUSTOMER CONTACT SALES ASSOCIATE) WBC 7.3 3.8 - 10.8 Thousand/u L [...] [facility] Blood 02/26/2022 11:5 9 AM CUSTOMER CONTACT SALES ASSOCIATE 02/26/2022 11:59 AM CUSTOMER CONTACT SALES ASSOCIATE us Miriam VALLE LAB BLOOD ORDERAB LES Final Result [facility] [address] [address] documented in this encounter Visit Diagnoses Diagnosis Psoriatic arthritis (HCC)- Primary Psoriatic arthropathy Encounter for long-term (current) use of medications Encounter for long-term (current) use of other medications documented in this encounter Care Teams Flat Sorting Machine Clerk Relationship Specialty Start Date End Date Bhupinder Tobias MD [address] [place] [id number] PCP - General Internal Medicine 06/03/20 Cash Heath III, MD [address] [facility] [address] [place] [address] Rheumatology 04/12/17 Jorge Aguiar MD [address] [facility] [address] [place] [address] Consulting Physician Urology 11/10/20 Khoa Arias MD [address] [facility] [address] [place] [address] Referring Physician Gastroenterology 03/20/21 documented as of this encounter
--- OUTSIDE RECORDS SUMMARY | 2024-04-29 20:16 | XMS_ITS | Encounter Summary ---
Author Organization [facility] Address [address] [place] [address] Phone Care Team Providers Care Publicity Consultant Name Role Phone Kumar CARRILLO MD, Cash Howard Unavailable [phone] Bhupinder Tobias MD Primary Care Provider [phone] Jorge Aguiar MD Unavailable [phone] Khoa Arias MD Unavailable [phone] Reason for Visit * Reason Onset Date Comments results and recs 09/04/2021 Encounter Details Date Type Department Care Team (Late st Contact Info) Description 09/04/2021 Telephone [facility] Gastroenterology [address] [facility] [address] [place] [address] Nikki Sterling RN results and [...] file 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 Gender Identity Female 08/14/2022 11:32 AM CDT [...] on filedocumented in this encounter Care Teams Publicity Consultant Relationship Specialty Start Date End Date Bhupinder Tobias MD [address] [facility] [address] [place] [address] PCP - General Internal Medicine 06/03/20 Cash Heath III, MD [address] [facility] [address] [place] [address] Rheumatology 04/12/17 Jorge Aguiar MD [address] [place] [address] [place] [address] Consulting Physician Urology 11/10/20 Khoa Arias MD [address] [place] [address] [place] [address] Referring Physician Gastroenterology 03/20/21 documented as of this encounter
--- OUTSIDE RECORDS SUMMARY | 2024-04-29 20:16 | XMS_ITS | Encounter Summary ---
[facility] Organization [facility] Address [address] [place] [address] Phone Care Team Providers Care Internet Salesperson Name Role Phone Kumar CARRILLO MD, Cash Howard Unavailable [phone] Bhupinder Tobias MD Primary Care Provider [phone] Jorge Aguiar MD Unavailable [phone] Khoa Arias MD Unavailable [phone] Reason for Visit * Reason Onset Date Comments Insurance only approves #30 for Arava 03/31/2021 Encounter Details Date Type Department Care Team (Late st Contact Info) Description 03/31/[address] [address] Ghazala Westbrook Insurance only approves #30 for Arava Social History Tobacco Use Types Packs/Day Years Used Date Smoking Tobacco: Never Alcohol Use Standard Drinks/Week Comments No 0 (1 standard drink = 0.6 oz pur e alcohol) Comments No Sex and Gender Information Value Date Recorded Sex Assigned at Not on file Legal Sex Female 9:24 PM POWDER HAND Gender Identity Female 08/14/2022 11:32 AM CDT Sexual Orientation Straight 02/13/2023 7: 01 AM CDT documented as of this encounter Miscellaneous Notes * Telephone Encounter - Ghazala Westbrook - 03/31/2021 11:21 AM CST Insurance only approves #30 for Arava. Spoke with pharmacy and let them know that was ok. Informed patient and let her know that meds were ready for flower picker. ER HAND documented in this encounter Plan of Treatment Not on file documented as of this encounter Visit Diagnoses Not on filedocumented in this encounter Care Teams Internet Salesperson Relationship Specialty Start Date End Date Bhupinder Tobias MD [address] [facility] [address] PCP - General Internal Medicine 06/03/20 Cash Heath III, MD [address] [facility] [address] [place] [address] Rheumatology 04/12/17 Jorge Aguiar MD [address] [place] [address] Consulting Physician Urology 11/10/20 Khoa Arias MD [address] [place] [address] Referring Physician Gastroenterology 03/20/21 documented as of this encounter
--- OUTSIDE RECORDS SUMMARY | 2024-04-29 20:16 | XMS_ITS | Encounter Summary ---
Author Organization [facility] logy Address [address] [place] [address] Phone Care Team Providers Care Molding Utility Worker Name Role Phone Kumar CARRILLO MD, Cash Howard Unavailable [phone] Bhupinder Tobias MD Primary Care Provider [phone] Jorge Aguiar MD Unavailable [phone] Khoa Arias MD Unavailable [phone] Reason for Visit * Reason Onset Date Comments ER Follow Up Questions 07/03/2021 Encounter Details Date Type Department Care Team (Late st Contact Info) Description 07/03/[address] [address] Tiara Rainey ER Follow Up Questions Social History Tobacco Use Types Packs/Day Years Used Date Smoking Tobacco: Never Alcohol Use Standard Drinks/Week Comments No 0 (1 standard drink = 0.6 oz pur e alcohol) Comments No Sex and Gender Information Value Date Recorded Sex Assigned at Not on file Legal 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 Female 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 Gender Identity Female 08/14/2022 11:32 AM CDT [...] on filedocumented in this encounter Care Teams Molding Utility Worker Relationship Specialty Start Date End Date Bhupinder Tobias MD [address] [facility] 120 [place] [address] PCP - General Internal Medicine 06/03/20 Cash Heath III, MD [address] [place] [address] Rheumatology 04/12/17 Jorge Aguiar MD [address] [facility] 120 [place] [address] Consulting Physician Urology 7/22/21 Khoa Arias MD [address] [place] [address] Referring Physician Gastroenterology 03/20/21 documented as of this encounter
--- OUTSIDE RECORDS SUMMARY | 2024-04-29 20:16 | XMS_ITS | Encounter Summary ---
Author Organization [facility] Address [address] [place] [address] Phone Care Team Providers Care Log Yard Derrick Operator Name Role Phone Kumar CARRILLO MD, Cash Howard Unavailable [phone] Bhupinder Tobias MD Primary Care Provider [phone] Jorge Aguiar MD Unavailable [phone] Khoa Arias MD Unavailable [phone] Reason for Visit * Gastroenterology (Routine) - Closed Specialty Diagnoses / Procedures Referred By Contac t Referred To Contact Gastroenterology Diagnoses Acute pancreatitis without infection or necrosis, unspecified pancreatitis type Other chronic pancreatitis (HCC) Bhupinder Tobias MD [address] [facility] 120 [place] [address] Phone: tel: fax: [facility] (All Locations) Referral ID Status Reason Start Date Expiration Date V isits Requested Visits Authorized [id number] Closed Specialty Services Required 08/10/2021 09/09/2022 99 99 Encounter Details Date Type Department Care Team (Late st Contact Info) Description 08/30/2021 1:00 PM CDT Office Visit [facility] Gastroenterology [address] [place] [address] Medical Office Building [address], [address] [place] [address] Devin Miller MD [address] [place] [address] Abdominal pain (Primary Dx); Acute pancreatitis without [...] on file Legal Sex Female 9:24 PM 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 Also at one point was recommended to try nortriptyline however she read the side effect profile and decided not to take the med.She is currently utilizing dicyclomine for her abdominal pain symptoms as well. She reports that this has not helped her symptoms. Her sales support rep felt that the elevated lipase symptoms possibly [...] stone ??? Migraine ??? RA (rheumatoid arthritis) ([facility]) Patient Active Problem List Diagnosis ??? Kidney [...] elevated at 414 (300 ULN). CHEM PROFILE [facility] Component 03/01/2021 03/01/2021 GLUCOSE 83 -- BUN [...] LIPASE -- 502??High?? (393 ULN) CHEM STUDIES [facility] [place] [place] 12/29/2018 Component 12/29/2018 12/28/2018 12/28/2018 12/26/2018 [...] 8:45 AM CDT Associated attestation - Devin Miller MD - 09/01/2021 8:45 AM CDT I [...] 22 documented in this encounter Care Teams Log Yard Derrick Operator Relationship Specialty Start Date End Date Bhupinder Tobias MD [address] [place] [address] PCP - General Internal Medicine 06/03/20 Cash Heath III, MD [address] [facility] [address] [place] [address] Rheumatology 04/12/17 Jorge Aguiar MD [address] [facility] [address] [place], [place] [address] Consulting Physician Urology 11/10/20 Khoa Arias MD [address] [facility] [address] [place], [place] [address] Referring Physician Gastroenterology 03/20/21 documented as of this encounter
--- OUTSIDE RECORDS SUMMARY | 2024-04-29 20:17 | XMS_ITS | Encounter Summary ---
Author Organization [facility] Address [address] [place] [address] Phone Care Team Providers Care Plumber Name Role Phone Isaiah Quiros MD Unavailable Kumar CARRILLO MD, Cash Howard Unavailable [phone] Alex Mahajan MD Unavailable [phone] Bhupinder Tobias MD Unavailable [phone] Bhupinder Tobias MD Primary Care Provider [phone] Jorge Aguiar MD Unavailable [phone] Reason for Visit * Reason Onset Date Comments Went to ER Yesterday 03/03/2021 Encounter Details Date Type Department Care Team (Late st Contact Info) Description 03/03/2021 Telephone [facility] [address] [place] [address] Tiara Rainey Went to ER Yesterday Social History Tobacco Use Types Packs/Day Years Used Date Smoking Tobacco: Never Alcohol Use Standard Drinks/Week Comments No 0 (1 standard drink = 0.6 oz pur e alcohol) Comments No Sex and Gender Information Value Date Recorded Sex Assigned at Not on file Legal Sex Female 9:24 PM SECURITY CHECKER Gender Identity Female 08/14/2022 11:32 AM CDT [...] ER if theabd pain continues or worsens. RITY CHECKER * Telephone Encounter - Miriam Frye PA - 03/03/2021 2:12 PM CST If lipase was elevated could be pancreatitis and imuran needs to be stopped also. Should go back toer if she is having bad abd pain. Go to [place]. RITY CHECKER * Telephone Encounter - Tiara Rainey - 03/03/2021 10:25 AM CST Pt reports she went to [facility] several days ago for severe abd [...] form [facility] & I printed theresults from [facility] out of Care Everywhere. Pt is going to call urologist for appt & also plans to ask pcp for referral to gi. She did not keep her appt for infusion yesterday since she was in ER. Told pt we need to resolve these other issues prior to rescheduling her infusion. Pt voices understanding. RITY CHECKER documented in this encounter Plan of Treatment Not on file documented as of this encounter Visit Diagnoses Not on filedocumented in this encounter Care Teams Plumber Relationship Specialty Start Date End Date Bhupinder Tobias MD [address] [place] [address] PCP - General Internal Medicine 06/03/20 Isaiah Quiros MD [address] [facility] 1 [place] [address] Internal Medicine 02/18/17 03/19/21 Cash Heath III, MD [address] [place] [address] Rheumatology 04/12/17 Alex Mahajan MD [address] [place] [address] Referring Physician Internal Medicine 05/07/19 1 Bhupinder Tobias MD [address] [facility] 120 [place] [address] Referring Physician Internal Medicine 06/03/20 1 Jorge Aguiar MD [address] [facility] [address] [place] [address] Consulting Physician Urology 11/10/20 documented as of this encounter
--- OUTSIDE RECORDS SUMMARY | 2024-04-29 20:17 | XMS_ITS | Encounter Summary ---
Author Organization [facility] Address [address] [place] [address] Phone Care Team Providers Care Rigger Up Name Role Phone Isaiah Quiros MD Unavailable Isaiah Quiros MD Primary Care Provider [phone] Kumar CARRILLO MD, Cash Howard Unavailable [phone] Alex Mahajan MD Unavailable [phone] Encounter Details Date Type Department Care Team (Late st Contact Info) Description 03/25/2020 Telephone [facility] [address] [place] [address] Miriam Frye PA [address] [place] [address] Social History Tobacco Use Types Packs/Day Years Used Date Smoking Tobacco: Never Alcohol Use Standard Drinks/Week Comments No 0 (1 standard drink = 0.6 oz pur e alcohol) Comments No Sex and Gender Information Value Date Recorded Sex Assigned at Not on file Legal Sex Female 9:24 PM OVEN ATTENDANT Gender Identity Female 08/14/2022 11:32 AM CDT Sexual Orientation Straight 02/13/2023 7: 01 AM CDT documented as of this encounter Miscellaneous Notes * Telephone Encounter - Tiara Rainey - 03/28/2020 9:00 AM CST PA request sent to [facility] ATTENDANT * Telephone Encounter - Kraig Garcia - 03/25/2020 3:12 PM CST Paperwork ready, awaiting ov note to be completed. ATTENDANT * Telephone Encounter - Miriam Frye PA - 03/25/2020 2:58 PM CST Start cosentyx approval. Stop orencia sq. 1st shot in the office. ATTENDANT ATTENDANT documented in this encounter Plan of Treatment Not on file documented as of this encounter Visit Diagnoses Not on filedocumented in this encounter Care Teams Rigger Up Relationship Specialty Start Date End Date Isaiah Quiros MD [address] [place] [address] PCP - General Internal Medicine 04/01/17 06/02/20 Isaiah Quiros MD [address] [place] [address] Internal Medicine 02/18/17 03/19/21 Cash Heath III, MD [address] [place] [address] Rheumatology 04/12/17 Alex Mahajan MD [address] [place] [address] Referring Physician Internal Medicine 05/07/19 1 documented as of this encounter
--- OUTSIDE RECORDS SUMMARY | 2024-04-29 20:17 | XMS_ITS | Encounter Summary ---
Author Organization [facility] Address [address] [place] [address] Phone Care Team Providers Care Saxophone Assembler Name Role Phone Isaiah Quiros MD Unavailable Isaiah Quiros MD Primary Care Provider [phone] Kumar CARRILLO MD, Cash Howard Unavailable Alex Mahajan MD Unavailable Encounter Details Date Type Department Care Team (Late st Contact Info) Description 02/19/2020 Telephone [facility] [address] [place] [address] Miriam Frye PA [address] [place] [address] Social History Tobacco Use Types Packs/Day Years Used Date Smoking Tobacco: Never Alcohol Use Standard Drinks/Week Comments No 0 (1 standard drink = 0.6 oz pur e alcohol) Comments No Sex and Gender Information Value Date Recorded Sex Assigned at Not on file Legal 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 * Telephone Encounter - Miriam Fyre PA - 02/19/2020 2:38 PM CDT Please [...] documented as of this encounter Care Teams Saxophone Assembler Relationship Specialty Start Date End Date Isaiah Quiros MD [address] [place] [address] PCP - General Internal Medicine 04/01/17 06/02/20 Isaiah Quiros MD [address] [place] [address] Internal Medicine 02/18/17 03/19/21 Cash Heath III, MD [address] [place], [place] [address] Rheumatology 04/12/17 Alex Mahajan MD [address] [place] [address] Referring Physician Internal Medicine 05/07/19 1 documented as of this encounter
--- OUTSIDE RECORDS SUMMARY | 2024-04-29 20:17 | XMS_ITS | Encounter Summary ---
Author Organization [facility] Address [address] [place] [address] Phone Care Team Providers Care Legal Intern Name Role Phone Iasiah Quiros MD Unavailable Kumar CARRILLO MD, Cash Howard Unavailable [phone] Alex Mahajan MD Unavailable [phone] Bhupinder Tobias MD Unavailable [phone] Bhupinder Tobias MD Primary Care Provider [phone] Reason for Visit * Reason Onset Date Zelalem Sierra Approved 06/10/2020 Eff: 06/07/1919 1 - 06/07/2021 Encounter Details Date Type Department Care Team (Late st Contact Info) Description 06/10/2020 Telephone [facility] [address] [place] [address] Tiara Rainey Approved (Eff: - 06/07/2021 ) Social History Tobacco Use Types Packs/Day Years Used Date Smoking Tobacco: Never Alcohol Use Standard Drinks/Week Comments No 0 (1 standard drink = 0.6 oz pur e alcohol) Comments No Sex and Gender Information Value Date Recorded Sex Assigned at Not on file Legal Sex Female 9:24 PM DIE HARDENER Gender Identity Female 08/14/2022 11:32 AM CDT [...] eff: - 06/07/2021 Pt has to contact [employer] to complete copay card registration @ [phone]. Script has to go to [facility]. Left vm to inform pt of status. Provided # to call for copay card. Asked pt to call to schedule teaching appt once she has medication. Script is ready to send. HARDENER documented in this encounter Plan of Treatment Not on file documented as of this encounter Visit Diagnoses Not on filedocumented in this encounter Care Teams Legal Intern Relationship Specialty Start Date End Date Bhupinder Tobias MD [address] [place] [address] PCP - General Internal Medicine 06/03/20 Isaiah Quiros MD [address] [facility] 1 [place] [address] Internal Medicine 02/18/17 03/19/21 Cash Heath III, MD [address] [place] [address] Rheumatology 04/12/17 Alex Mahajan MD [address] [place] [address] Referring Physician Internal Medicine 05/07/19 1 Bhupinder Tobias MD [address] [facility] [address] [address] Referring Physician Internal Medicine 06/03/20 1 documented as of this encounter
--- OUTSIDE RECORDS SUMMARY | 2024-04-29 20:17 | XMS_ITS | Encounter Summary ---
Author Organization [facility] Address [address] [place] [address] Phone Care Team Providers Care Composition Floor Setter Name Role Phone Isaiah Quiros MD Unavailable Kumar CARRILLO MD, Cash Howard Unavailable [phone] Alex Mahajan MD Unavailable [phone] Bhupinder Tobias MD Unavailable [phone] Bhupinder Tobias MD Primary Care Provider [phone] Jorge Aguiar MD Unavailable [phone] Reason for Visit * Reason Onset Date Comments Patient called wanting to see if she could start her meds ag 03/15/2021 Encounter Details Date Type Department Care Team (Late st Contact Info) Description 03/15/2021 Telephone [facility] [address] [place] [address] Ghazala Westbrook Patient called wanting to see if she could start her meds ag Social History Tobacco Use Types Packs/Day Years Used Date Smoking Tobacco: Never Alcohol Use Standard Drinks/Week Comments No 0 (1 standard drink = 0.6 oz pur e alcohol) Comments No Sex and Gender Information Value Date Recorded Sex Assigned at Not on file Legal Sex Female 9:24 PM 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 IT ADMINISTRATION OFFICER * Telephone Encounter - Miriam Frye PA - 03/15/2021 2:02 PM CST Spoke to pt and advised her to get today's ordered labs so we can make sure her lipase and lft's are wnl before we restart imuran and orencia. Informed that if lipase still elevated will delay starting imuran but can start orencia. Pt has an appt with gi next month. IT ADMINISTRATION OFFICER * Telephone Encounter - Kraig Garcia - 03/15/2021 1:27 PM CST Spoke to pt, says her abd pain much better, says was on on R side and had kidney stone removed. Pt say she has a MRI result she wants to discuss w/you. IT ADMINISTRATION OFFICER * Telephone Encounter - Miriam Frye PA - 03/15/2021 12:56 PM CST We need to recheck her labs first. Is her abd pain resolved? IT ADMINISTRATION OFFICER * Telephone Encounter - Ghazala Westbrook - 03/15/2021 10:47 AM CST Patient called wanting to see if she could start her meds again. States she is hurting and swollen. IT ADMINISTRATION OFFICER documented in this encounter Plan of Treatment Not on file documented as of this encounter Visit Diagnoses Not on filedocumented in this encounter Care Teams Composition Floor Setter Relationship Specialty Start Date End Date Bhupinder Tobias MD [address] [facility] [address] [place] [address] PCP - General Internal Medicine 06/03/20 Isaiah Quiros MD [address] [facility] 1 [place] [address] Internal Medicine 02/18/17 03/19/21 Cash Heath III, MD [address] [place] [address] Rheumatology 04/12/17 Alex Mahajan MD [address] [place] [address] Referring Physician Internal Medicine 05/07/19 1 Bhupinder Tobias MD [address] [facility] [address] [facility] [address] [place] [address] Referring Physician Internal Medicine 06/03/20 1 Jorge Aguiar MD [address] [facility] [address] [place] [address] Consulting Physician Urology 11/10/20 documented as of this encounter
--- OUTSIDE RECORDS SUMMARY | 2024-04-29 20:17 | XMS_ITS | Encounter Summary ---
Author Organization [facility] Address [address] [place] [address] Phone Care Team Providers Care Carpenter Assistant Installer Name Role Phone Isaiah Quiros MD Unavailable Isaiah Quiros MD Primary Care Provider [phone] Kumar CARRILLO MD, Cash Howard Unavailable [phone] Alex Mahajan MD Unavailable [phone] Reason for Visit * Reason Comments Rheumatoid Arthritis Encounter Details Date Type Department Care Team (Late st Contact Info) Description 02/19/2020 8:30 AM CDT Office Visit [facility] [address] [place] [address] Miriam Frye PA [address] [place] [address] Rheumatoid arthritis of multiple sites [...] on file Legal Sex Female 9:24 PM PATTERN GRADER Gender Identity Female 08/14/2022 11:32 AM CDT [...] Progress Notes * Miriam Frye PA - 02/19/2020 8:30 AM CDT Images [...] Past serologies: [facility]ise panel 08/2019---labs reveal positive anti-SAFETY PERSON antibody which is likely a false positive [...] showed osteoporosis Avise 08/2019---[facility]ise labs reveal positive anti-SAFETY PERSON antibody which is likely a false positive [...] pcn? If not tell her to not berry picker cipro and we need to call in amoxil 500mg tid x 7d. ERN GRADER * Result Encounter Note - Miriam Frye PA - 02/22/2020 9:47 AM CST Had wbc and blood in urine. Culture is pending. If not allx to cipro call in 250mg bid x 7d. Recheck UA in 10d. Lots of water. If symptoms worsen (fever, chills, nausea, abd pain, hematuria, worsening dysuria) to ER. ERN GRADER * Assessment & Plan Note - Miriam [...] Past serologies: [facility] panel 08/2019---labs reveal positive anti-SAFETY PERSON antibody which is likely a false positive [...] showed osteoporosis Avise 08/2019---Avise labs reveal positive anti-SAFETY PERSON antibody which is likely a false positive [...] without rheumatoid factor ([facility]/HCC) Encounter for long-term (current) use of medications CRP (ACUTE PHASE) Routine 02/19/2020 9:0 7 AM CDT Rheumatoid arthritis of multiple sites without rheumatoid factor ([facility]/HCC) Encounter for long-term (current) use of medications COMPREHENSIVE METABOLIC PANEL Routine 02/19/2020 9:07 AM CDT Rheumatoid arthritis of multiple sites without rheumatoid factor ([facility]/HCC) Encounter for long-term (current) use of medications documented in this encounter Results * COMP C3C4 (02/19/2020 9:07 AM CDT) Complement component C3C 159 83 - 193 mg/dL [facility] Complement component C4C 30 15 - 57 mg/dL [facility] 02/19/2020 9:07 AM CDT 02/19/2020 9:09 AM CDT us Miriam VALLE LAB BLOOD ORDERAB LES Final Result [facility] [address] [address] * HEPATITIS PANEL, GENERAL (02/19/2020 9:07 AM CDT) Hep A total NON-REACTI VE NON-REACT SAL [facility] Comment: For additional information, please refer to http://[employer].AutomateIt/faq/JAH417 (This link is being provided for informational/ [...] a test for HCV RNA (test code 94024) is suggested. For additional information please refer to http://[employer]ate[employer]/faq/PVJ30w5 (This link is being provided for informational/ educational purposes only.) Blood specimen (specimen) 02/19/2020 9:07 AM CDT 02/19/2020 9:09 AM CDT Miriam VALLE LAB BLOOD ORDERAB LES Final Result [facility] [address] [place] [address] * Erythrocyte sedimentation rate (02/19/2020 9:07 AM CDT) Erythrocyte sedimentation rate 5 < OR = 20 mm/h [facility] Blood specimen (specimen) 02/19/2020 9:07 AM CDT 02/19/2020 9:09 AM CDT Miriam VALLE LAB BLOOD ORDERAB LES Final Result Performing Organization Address [facility] Co de Phone Number [facility] [address] [place] [address] * Anti-double stranded DNA antibodies (02/19/2020 9:07 AM CDT) [facility] DNA (DS) ab <1 IU/mL [facility] Comment: ? IU/mL ? Interpretation ? < or = 4 ?Negative ? 5-9 ? Indeterminate ? > or = 10 ?? Positive Blood specimen (specimen) 02/19/2020 9:07 AM CDT 02/19/2020 9:09 AM CDT Miriam VALLE LAB BLOOD ORDERAB LES Final Result Performing Organization Address [facility] Co de Phone Number [facility] [address] [place] [address] * (ABNORMAL) CBC with auto differential (02/19/2020 9:07 AM CDT) [facility] WBC 9.8 3.8 - 10.8 Thousand/u L [...] LAB BLOOD ORDERAB LES Final Result [facility] [address] [place] [address] * CRP (acute phase) (02/19/2020 9:07 AM CDT) C-RP 2.6 <8.0 mg/L [facility] Blood specimen (specimen) 02/19/2020 9:07 AM CDT 02/19/2020 9:09 AM CDT Miriam VALLE LAB BLOOD ORDERAB LES Final Result [facility] [address] [address] * Comprehensive metabolic panel (02/19/2020 9:07 AM CDT) Glucose 95 65 - 99 mg/dL [facility] Comment: ? Fasting reference interval BUN 17 7 - 25 mg/dL [facility] Creatinine 0.95 0.50 - 1.10 mg/dL [facility] eGFR NON-AFR. [place] 72 > OR = 60 mL/min/1. 73m2 [facility] EGFR 84 > OR = 60 mL/min/1. 73m2 [facility] BUN/creat ratio NOT APPLICABLE 6 - 22 (calc) [facility] Sodium 137 135 - 146 mmol/L [facility] Potassium, pl 4.2 3.5 - 5.3 mmol/L [facility] Chloride 104 98 - 110 mmol/L [facility] CO2 22 20 - 32 mmol/L [facility] Calcium 9.1 8.6 - 10.2 mg/dL [facility] Protein, sr 6.7 6.1 - 8.1 g/dL [facility] Albumin 4.1 3.6 - 5.1 g/dL [facility] GLOBULIN 2.6 1.9 - 3.7 g/dL (calc) [facility] Alb/glob ratio 1.6 1.0 - 2.5 (calc) [facility] Bilirubin, total 0.2 0.2 - 1.2 mg/dL [facility] Alk phos 63 31 - 125 U/L [facility] AST 12 10 - 35 U/L [facility] ALT (SGPT) 13 6 - 29 U/L [facility] Blood specimen (specimen) 02/19/2020 9:07 AM CDT 02/19/2020 9:09 AM CDT us Miriam VALLE LAB BLOOD ORDERAB LES Final Result [facility] [address] [place] [address] * (ABNORMAL) Protein / creatinine ratio, urine, [...] URINE ORDERAB LES Final Result [facility] [address] [place] [address] * (ABNORMAL) Urinalysis reflex to microscopic and culture Urine, bladder (02/19/2020 9:07 AM CDT) Color, ur YELLOW YELLOW [facility] Appearance, ur CLEAR CLEAR [facility] Specific gravity 1.010 1.001 - 1.035 [facility] pH, ur 6.5 5.0 - 8.0 [facility] Glucose, ur NEGATIVE NEGATIVE [facility] Bilirubin, ur NEGATIVE NEGATIVE [facility] Ketones, ur NEGATIVE NEGATIVE [facility] Blood, ur 1+(A) NEGATIVE [facility] Protein, ur, quant NEGATIVE NEGATIVE [facility] Nitrites, ur NEGATIVE NEGATIVE [facility] Leukocyte esterase, ur 1+(A) NEGATIVE [facility] WBC, ur 6-10(A) < OR = 5 /HPF [facility] RBC, ur 0-2 < OR = 2 /HPF [facility] Epithelial cells, squamous, ur 0-5 < OR = 5 /HPF [facility] Bacteria, ur, quant NONE SEEN NONE SEEN /HPF [facility] Hyaline cast NONE SEEN NONE SEEN /LPF [facility] Urine culture [facility] Comment:CULTURE INDICATED - RESULTS TO FOLLOW Urine culture (A) [facility] Comment: ??CULTURE, URINE, ROUTINE ?Micro Number: ?[id number] ??Test Status: ? Final ??Specimen Source: ?? 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 factor ([facility]) ([facility])- Primary Encounter for long-term (current) [...] documented as of this encounter Care Teams Carpenter Assistant Installer Relationship Specialty Start Date End Date Isaiah Quiros MD [address] [place] [address] PCP - General Internal Medicine 04/01/17 06/02/20 Isaiah Quiros MD [address] [facility] 1 [place] [address] Internal Medicine 02/18/17 03/19/21 Cash Heath III, MD [address] [place], [place] [address] Rheumatology 04/12/17 Alex Mahajan MD [address] [place] [address] Referring Physician Internal Medicine 05/07/19 1 documented as of this encounter
--- OUTSIDE RECORDS SUMMARY | 2024-04-29 20:17 | XMS_ITS | Encounter Summary ---
Author Organization [facility] Address [address] [place] [address] Phone Care Team Providers Care Phototypesetting Equipment Monitor Name Role Phone Isaiah Quiros MD Unavailable Kumar CARRILLO MD, Cash Howard Unavailable [phone] Alex Mahajan MD Unavailable [phone] Bhupinder Tobias MD Unavailable [phone] Bhupinder Tobias MD Primary Care Provider [phone] Encounter Details Date Type Department Care Team (Late st Contact Info) Description 11/07/2020 2:00 PM CDT Office Visit [facility] [address] [place] [address] Miriam Frye PA [address] [place] [address] Psoriatic arthritis (CMS/HCC) (HCC) (Primary Dx); [...] on file 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 Has EGD this week.Raccoon is utd. Review of Systems Constitutional: Negative [...] all orders for this visit: Psoriatic arthritis ([facility]) (Primary) Assessment & Plan: High cdai. On [...] Past serologies: [facility] panel 08/2019---labs reveal positive anti-OFFICE RENTAL CLERK antibody which is likely a false positive [...] showed osteoporosis Avise 08/2019---[facility]ise labs reveal positive anti-OFFICE RENTAL CLERK antibody which is likely a false positive [...] showed osteoporosis Avise 08/2019---[facility]ise labs reveal positive anti-OFFICE RENTAL CLERK antibody which is likely a false positive [...] Past serologies: [facility] panel 08/2019---labs reveal positive anti-OFFICE RENTAL CLERK antibody which is likely a false positive [...] stranded DNA antibodies Lab Routine Psoriatic arthritis ([facility]) Encounter for long-term (current) use 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/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/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 Lab Routine Psoriatic arthritis ([facility]) Encounter for long-term (current) use of medications Meredith-Danlos disease Expected: 11/07/2020, Expires: 11/07/2021 C4 complement Lab Routine Psoriatic arthritis ([facility]) Encounter for long-term (current) use of medications Meredith-Danlos disease Expected: 11/07/2020, Expires: 11/07/2021 Urinalysis reflex to microscopic and culture Urine, bladder Microbiology Routine Psoriatic arthritis ([facility]) Encounter for long-term (current) use 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/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/2021 Protein / creatinine ratio, urine, random Lab Routine Psoriatic arthritis ([facility]) Encounter for long-term (current) use of medications [...] Routine 11/07/2020 3:26 PM CDT Psoriatic arthritis ([facility]) ([facility]) Encounter for long-term (current) use of medications PROTEIN / CREATININE RATIO, URINE, RANDOM Routine 11/07/2020 3:26 PM CDT ERYTHROCYTE SEDIMENTATION RATE Routine 11/07/2020 3:26 PM CDT Psoriatic arthritis ([facility]) ([facility]) Encounter for long-term (current) use of medications URINE CULTURE Routine 11/07/2020 3:26 PM CDT C3 COMPLEMENT Routine 11/07/2020 3:26 PM CDT CRP (ACUTE PHASE) Routine 11/07/2020 3:2 6 PM CDT Psoriatic arthritis ([facility]/HCC) ([facility]) Encounter for long-term (current) use of medications COMPREHENSIVE METABOLIC PANEL Routine 11/07/2020 3:26 PM CDT Psoriatic arthritis ([facility]) ([facility]) Encounter for long-term (current) use of medications documented in this encounter Results * (ABNORMAL) Urine culture (11/07/2020 3:26 PM CDT) Urine culture (A) [facility] Comment: ??CULTURE, URINE, ROUTINE ?Micro Number: ?[id number] ??Test Status: ? Final ??Specimen Source: ?? [...] MICROBIOLOGY - GENERAL ORDERABLES Final Result [facility] [address] [place] [address] * Protein / creatinine ratio, urine, random [...] LAB URINE ORDERAB LES Final Result [facility] [address] [place] [address] * C4 complement (11/07/2020 3:26 PM CDT) Complement component C4C 26 15 - 57 mg/dL [facility] 11/07/2020 3:26 PM CDT 11/07/2020 3:28 PM CDT Miriam VALLE LAB BLOOD ORDERAB LES Final Result Performing Organization Address [facility] de Phone Number [facility] [address] [place] [address] * C3 complement (11/07/2020 3:26 PM CDT) Complement component C3C 135 83 - 193 mg/dL [facility] 11/07/2020 3:26 PM CDT 11/07/2020 3:28 PM CDT Miriam VALLE LAB BLOOD ORDERAB LES Final Result Performing Organization Address [facility] de Phone Number [facility] [address] [place] [address] * Anti-double stranded DNA antibodies (11/07/2020 3:26 PM CDT) DNA (DS) ab <1 IU/mL [facility] Comment: ? IU/mL ? Interpretation ? < or = 4 ?Negative ? 5-9 ? Indeterminate ? > or = 10 ?? Positive 11/07/2020 3:26 PM CDT 11/07/2020 3:28 PM CDT Miriam VALLE LAB BLOOD ORDERAB LES Final Result Performing Organization Address [facility] de Phone Number [facility] [address] [facility] [place] [address] * REFLEXIVE URINE CULTURE (11/07/2020 3:26 PM CDT) Urine culture [facility] Comment:CULTURE INDICATED - RESULTS TO FOLLOW 11/07/2020 3:26 PM CDT 11/07/2020 3:28 PM CDT Miriam VALLE LAB MICROBIOLOGY - GENERAL ORDERABLES Final Result Performing Organization Address [facility]/ZIP Co de Phone Number [facility] [address] [place] [address] * (ABNORMAL) Urinalysis reflex to microscopic and culture (11/07/2020 3:26 PM CDT) Color, ur DARK YELLOW YELLOW [facility] Appearance, ur CLEAR CLEAR [facility] Specific gravity 1.021 1.001 - 1.035 [facility] pH, ur 6.0 5.0 - 8.0 [facility] Glucose, ur NEGATIVE NEGATIVE [facility] Bilirubin, ur NEGATIVE NEGATIVE [facility] Ketones, ur NEGATIVE NEGATIVE [facility] Blood, ur TRACE(A) NEGATIVE [facility] Protein, ur, quant NEGATIVE NEGATIVE [facility] Nitrites, ur NEGATIVE NEGATIVE [facility] Leukocyte esterase, ur TRACE(A) NEGATIVE [facility] WBC, ur 0-5 < OR = 5 /HPF [facility] RBC, ur 0-2 < OR = 2 /HPF [facility] Epithelial cells, squamous, ur 0-5 < OR = 5 /HPF [facility] Bacteria, ur, quant FEW(A) NONE SEEN /HPF [facility] Hyaline cast NONE SEEN NONE SEEN /LPF [facility] 11/07/2020 3:26 PM CDT 11/07/2020 3:28 PM CDT Miriam VALLE LAB MICROBIOLOGY - GENERAL ORDERABLES Final Result [facility] [address] [place] [address] * Erythrocyte sedimentation rate (11/07/2020 3:26 PM CDT) [facility] Erythrocyte sedimentation rate 6 < OR = 20 mm/h [facility] Blood specimen (specimen) 11/07/2020 3:26 PM CDT 11/07/2020 3:28 PM CDT Miriam VALLE LAB BLOOD ORDERAB LES Final Result [facility] [address] [place] [address] * CRP (acute phase) (11/07/2020 3:26 PM CDT) [facility] C-RP 4.1 <8.0 mg/L [facility] Blood specimen (specimen) 11/07/2020 3:26 PM CDT 11/07/2020 3:28 PM CDT Miriam VALLE LAB BLOOD ORDERAB LES Final Result Performing Organization Address [facility] Co de Phone Number [facility] [address] [place] [address] * (ABNORMAL) Comprehensive metabolic panel (11/07/2020 3:26 PM CDT) [facility] Glucose 84 65 - 99 mg/dL [facility] Comment: ? Fasting reference interval BUN 14 7 - 25 mg/dL [facility] Creatinine 0.85 0.50 - 1.10 mg/dL [facility] eGFR NON-AFR. [place] 82 > OR = 60 mL/min/1. 73m2 [facility] EGFR 95 > OR = 60 mL/min/1. 73m2 [facility] BUN/creat ratio NOT APPLICABLE 6 - 22 (calc) [facility] Sodium 135 135 - 146 mmol/L [facility] Potassium, pl 4.1 3.5 - 5.3 mmol/L [facility] Chloride 103 98 - 110 mmol/L [facility] CO2 21 20 - 32 mmol/L [facility] Calcium 8.9 8.6 - 10.2 mg/dL [facility] Protein, sr 7.0 6.1 - 8.1 g/dL [facility] Albumin 4.1 3.6 - 5.1 g/dL [facility] GLOBULIN 2.9 1.9 - 3.7 g/dL (calc) [facility] Alb/glob ratio 1.4 1.0 - 2.5 (calc) [facility] Bilirubin, total 0.5 0.2 - 1.2 mg/dL [facility] Alk phos 63 31 - 125 U/L [facility] AST 21 10 - 35 U/L [facility] ALT (SGPT) 33(H) 6 - 29 U/L [facility] Blood specimen (specimen) 11/07/2020 3:26 PM CDT 11/07/2020 3:28 PM CDT us Miriam VALLE LAB BLOOD ORDERAB LES Final Result [facility] [address] [place] [address] * (ABNORMAL) CBC with auto differential (11/07/2020 [...] BLOOD ORDERAB LES Final Result [facility] [address] [place] [address] documented in this encounter Visit Diagnoses Diagnosis Psoriatic arthritis (HCC)- Primary Psoriatic arthropathy Osteoporosis without current pathological fracture, unspecified osteoporosis type Kidney stones Calculus of kidney Encounter for long-term (current) use of medications Encounter for long-term (current) use of other medications Meredith-Danlos disease Meredith-Danlos syndrome documented in this encounter Care Teams Phototypesetting Equipment Monitor Relationship Specialty Start Date End Date Bhupinder Tobias MD [address] [address] PCP - General Internal Medicine 06/03/20 Isaiah Quiros MD [address] [facility] [address] [place], [place] [address] Internal Medicine 02/18/17 03/19/21 Cash Heath III, MD [address] [place] [address] Rheumatology 04/12/17 Alex Mahajan MD [address] [place] [address] Referring Physician Internal Medicine 05/07/19 1 Bhupinder Tobias MD [address] [place] [address] Referring Physician Internal Medicine 06/03/20 1 documented as of this encounter
--- OUTSIDE RECORDS SUMMARY | 2024-04-29 20:17 | XMS_ITS | Encounter Summary ---
Author Organization [facility] Address [address] [place] [address] Phone Care Team Providers Care Geological Manager Name Role Phone Isaiah Quiros MD Unavailable Kumar CARRILLO MD, Cash Howard Unavailable [phone] Alex Mahajan MD Unavailable [phone] Bhupinder Tobias MD Unavailable Bhupinder Tobias MD Primary Care Provider [phone] Jorge Aguiar MD Unavailable [phone] Reason for Visit * Reason Onset Date Comments Labs/ Urology Needs 11/11/2020 Encounter Details Date Type Department Care Team (Late st Contact Info) Description 11/11/2020 Telephone [facility] [address] [place] [address] Celestina Logan Labs/ Urology Needs Social History Tobacco Use Types Packs/Day Years Used Date Smoking Tobacco: Never Alcohol Use Standard Drinks/Week Comments No 0 (1 standard drink = 0.6 oz pur e alcohol) Comments No Sex and Gender Information Value Date Recorded Sex Assigned at Not on file 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 Provided fax number of [phone]. Printed reports and faxed to number provided. Called her to let her know completed. documented in this encounter Plan of Treatment Not on file documented as of this encounter Visit Diagnoses Not on filedocumented in this encounter Care Teams Geological Manager Relationship Specialty Start Date End Date Bhupinder Tobias MD [address] [address] PCP - General Internal Medicine 06/03/20 Isaiah Quiros MD [address] [facility] 1 [place] [address] Internal Medicine 02/18/17 03/19/21 Cash Heath III, MD [address] [facility] [address] [place] [address] Rheumatology 04/12/17 Alex Mahajan MD [address] [place] [address] Referring Physician Internal Medicine 05/07/19 1 Bhupinder Tobias MD [address] [facility] [address] [facility] [address] [place] [address] Referring Physician Internal Medicine 06/03/20 1 Jorge Aguiar MD [address] [address] Consulting Physician Urology 11/10/20 documented as of this encounter
--- OUTSIDE RECORDS SUMMARY | 2024-04-29 20:17 | XMS_ITS | Encounter Summary ---
Author Organization [facility] Address [address] [place] [address] Phone Care Team Providers Care Legal Technician Name Role Phone Isaiah Quiros MD Unavailable Kumar CARRILLO MD, Cash Howard Unavailable [phone] Alex Mahajan MD Unavailable [phone] Bhupinder Tobias MD Unavailable [phone] Bhupinder Tobias MD Primary Care Provider [phone] Jorge Aguiar MD Unavailable [phone] Encounter Details Date Type Department Care Team (Late st Contact Info) Description 11/07/2020 Telephone [facility] [address] [place] [address] Miriam Frye PA [address] [place] [address] Social History Tobacco Use Types Packs/Day Years Used Date Smoking Tobacco: Never Alcohol Use Standard Drinks/Week Comments No 0 (1 standard drink = 0.6 oz pur e alcohol) Comments No Sex and Gender Information Value Date Recorded Sex Assigned at Not on file 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 Gender Identity Female 08/14/2022 11:32 AM [...] filedocumented in this encounter Care Teams Legal Technician Relationship Specialty Start Date End Date Bhupinder Tobias MD [address] [place] [address] PCP - General Internal Medicine 06/03/20 Isaiah Quiros MD [address] [facility] [address] [place], [place] [id number] Internal Medicine 02/18/17 03/19/21 Cash Heath III, MD [address] [place] [address] Rheumatology 04/12/17 Alex Mahajan MD [address] [place], [place] [address] Referring Physician Internal Medicine 05/07/19 1 Bhupinder Tobias MD [address] [place], [place] [address] Referring Physician Internal Medicine 06/03/20 1 Jorge Aguiar MD [address] [place] [address] Consulting Physician Urology 11/10/20 documented as of this encounter
--- OUTSIDE RECORDS SUMMARY | 2024-04-29 20:17 | XMS_ITS | Encounter Summary ---
Author Organization [facility] Address [address] [place] [address] Phone Care Team Providers Care Lens Block Gauger Name Role Phone Isaiah Quiros MD Unavailable Isaiah Quiros MD Primary Care Provider [phone] Kumar CARRILLO MD, Cash Howard Unavailable [phone] Alex Mahajan MD Unavailable [phone] Encounter Details Date Type Department Care Team (Late st Contact Info) Description 03/09/2020 Telephone [facility] [address] [place] [address] Shavon Mcfadden MA Social History Tobacco Use Types Packs/Day Years Used Date Smoking Tobacco: Never Alcohol Use Standard Drinks/Week Comments No 0 (1 standard drink = 0.6 oz pur e alcohol) Comments No Sex and Gender Information Value Date Recorded Sex Assigned at Not on file 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 Routed last labs to [phone]. E INSPECTOR documented in this encounter Plan of Treatment Not on file documented as of this encounter Visit Diagnoses Not on filedocumented in this encounter Care Teams Lens Block Gauger Relationship Specialty Start Date End Date Isaiah Quiros MD [address] [place] [address] PCP - General Internal Medicine 04/01/17 06/02/20 Isaiah Quiros MD [address] [place] [address] Internal Medicine 02/18/17 03/19/21 Cash Heath III, MD [address] [place] [address] Rheumatology 04/12/17 Alex Mahajan MD [address] [place] [address] Referring Physician Internal Medicine 05/07/19 1 documented as of this encounter
--- OUTSIDE RECORDS SUMMARY | 2024-04-29 20:17 | XMS_ITS | Encounter Summary ---
Author Organization [facility] Address [address] [place] [address] Phone Care Team Providers Care Supervisor Adult Education Name Role Phone Isiaah Quiros MD Unavailable Kumar CARRILLO MD, Cash Howard Unavailable [phone] Alex Mahajan MD Unavailable [phone] Bhupinder Tobias MD Unavailable [phone] Bhupinder Tobias MD Primary Care Provider [phone] Reason for Visit * Reason Comments Arthritis Rheumatoid Arthritis Encounter Details Date Type Department Care Team (Late st Contact Info) Description 06/03/2020 2:30 PM APPLIANCE ADJUSTER Office Visit [facility] [address] [place] [address] Miriam Frye PA [address] [place] [address] Psoriatic arthritis (CMS/HCC) (Primary Dx); [...] on file Legal Sex Female 9:24 PM APPLIANCE ADJUSTER Gender Identity Female 08/14/2022 11:32 AM CDT Sexual Orientation Straight 02/13/2023 7: 01 AM CDT documented as of this encounter Last Filed Vital Signs Vital Sign Reading Time Taken Comments Blood Pressure 134/78 06/03/2020 3:14 PM APPLIANCE ADJUSTER Pulse - - Temperature 36.7 ??C (98 ??F) 06/03/2020 3:14 PM APPLIANCE ADJUSTER Respiratory Rate - - Oxygen Saturation - - Inhaled Oxygen Concentration - - Weight 101.6 kg (224 lb) 06/03/2020 3:14 PM APPLIANCE ADJUSTER Height 167.6 cm (5' 6 ) 06/03/2020 3:14 PM APPLIANCE ADJUSTER Body Mass Index 36.15 06/03/2020 3:14 PM APPLIANCE ADJUSTER documented in this encounter Ordered Prescriptions Prescription [...] all orders for this visit: Psoriatic arthritis ([facility]) (Primary) Assessment [...] Past serologies: [facility] panel 08/2019---labs reveal positive anti-ULTRASOUND APPLICATIONS SPECIALIST antibody which is likely a false [...] showed osteoporosis [facility]ise 08/2019---[facility] labs reveal positive anti-ULTRASOUND APPLICATIONS SPECIALIST antibody which is likely a false [...] Heath III, MD at 06/07/2020 10:00 AM APPLIANCE ADJUSTER IANCE ADJUSTER IANCE ADJUSTER documented in this encounter Miscellaneous Notes * Assessment & Plan Note - Miriam Frye PA - 06/03/2020 2:53 PM CSTAssociated Problem(s): Kidney stones Multiple kidney stones for over 10 yrs, 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 Urologist is keepin tabs on this. Urologist has him on potassium citrate. IANCE ADJUSTER IANCE ADJUSTER * Assessment & Plan Note - Miriam [...] Past serologies: [facility] panel 08/2019---labs reveal positive anti-ULTRASOUND APPLICATIONS SPECIALIST antibody which is likely a false positive due tonegative ASHLEY. ?? RF neg but has a possible family hx of psoriatic arthritis (father) so if she develops psoriasis diagnosis will change to psoriatic arthritis. Rt hand US 09/2019 showed: ?? IANCE ADJUSTER IANCE ADJUSTER IANCE ADJUSTER * Assessment & Plan Note - Miriam Frye PA - 06/03/2020 7:38 AM CSTAssociated Problem(s): Osteoporosis without current pathological fracture bds checked by pcp in past, is taking ca and vit d and pcp checked vit D and PTH per pt was wnl. Her pcp started her on alendronate 70mg po qweek. Taking ca + vit d 1200mg qd. IANCE ADJUSTER * Assessment & Plan Note - Miriam [...] showed osteoporosis [facility]ise 08/2019---[facility] labs reveal positive anti-ULTRASOUND APPLICATIONS SPECIALIST antibody which is likely a false positive due tonegative ASHLEY. Her father had psoriasis, pt changed from ra to PsA on 03/25/2020. ?? IANCE ADJUSTER IANCE ADJUSTER * Assessment & Plan Note - Miriam Frye PA - 06/03/2020 7:37 AM CSTAssociated Problem(s): Meredith-Danlos disease Was advised in past to get chest CT to r/o aortic aneurysm, to discuss with pcp. IANCE ADJUSTER documented in this encounter Plan of Treatment Scheduled Orders Name Type Priority Associated Diagnoses Orde r Schedule C4 complement Lab Routine Psoriatic arthritis (CMS/HCC) Osteoporosis without current pathological fracture, unspecified osteoporosis type Encounter for long-term (current) use of medications Meredith-Danlos disease Expected: 06/03/2020, Expires: 06/03/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 Lab Routine Psoriatic arthritis ([facility]/HCC) Osteoporosis without current pathological fracture, unspecified osteoporosis type Encounter for long-term (current) use of medications Meredith-Danlos disease Expected: 06/03/2020, Expires: 06/03/2021 Uric acid Lab Routine Psoriatic arthritis (CMS/HCC) 1 Occurrences starting 06/03/2020 until 06/03/2021 documented as of this encounter Procedures Procedure Name Priority Date/Time Associated Diagnosis Comments ANTI-DOUBLE STRANDED DNA ANTIBODIES Routine 06/03/2020 3:16 PM APPLIANCE ADJUSTER Psoriatic arthritis (CMS/HCC) Osteoporosis without current pathological fracture, unspecified osteoporosis type Encounter for long-term (current) use of medications Meredith-Danlos disease COMP C3C4 Routine 06/03/2020 3:16 PM APPLIANCE ADJUSTER URINALYSIS AND REFLEX TO MICROSCOPIC AND CULTURE Routine 06/03/2020 3:16 PM APPLIANCE ADJUSTER Psoriatic arthritis (CMS/HCC) Osteoporosis without current pathological fracture, unspecified osteoporosis type Encounter for long-term (current) use of medications Meredith-Danlos disease CBC WITH AUTO DIFFERENTIAL Routine 06/03/2020 3:16 PM APPLIANCE ADJUSTER Psoriatic arthritis (CMS/HCC) Osteoporosis without current pathological fracture, unspecified osteoporosis type Encounter for long-term (current) use of medications Meredith-Danlos disease PROTEIN / CREATININE RATIO, URINE, RANDOM Routine 06/03/2020 3:16 PM APPLIANCE ADJUSTER Psoriatic arthritis (CMS/HCC) Osteoporosis without current pathological fracture, unspecified osteoporosis type Encounter for long-term (current) use of medications Meredith-Danlos disease ERYTHROCYTE SEDIMENTATION RATE Routine 06/03/2020 3:16 PM APPLIANCE ADJUSTER Psoriatic arthritis (CMS/HCC) Osteoporosis without current pathological fracture, unspecified osteoporosis type Encounter for long-term (current) use of medications Meredith-Danlos disease CRP (ACUTE PHASE) Routine 06/03/2020 3:1 6 PM APPLIANCE ADJUSTER Psoriatic arthritis (CMS/HCC) Osteoporosis without current pathological fracture, unspecified osteoporosis type Encounter for long-term (current) use of medications Meredith-Danlos disease URIC ACID Routine 06/03/2020 3:16 PM APPLIANCE ADJUSTER COMPREHENSIVE METABOLIC PANEL Routine 06/03/2020 3:16 PM APPLIANCE ADJUSTER Psoriatic arthritis (CMS/HCC) Osteoporosis without current pathological fracture, unspecified osteoporosis type Encounter for long-term (current) use of medications Meredith-Danlos disease documented in this encounter Results * Uric acid (06/03/2020 3:16 PM APPLIANCE ADJUSTER) Uric acid 3.4 2.5 - 7.0 mg/dL [facility] Comment: Therapeutic target for gout patients: <6.0 mg/dL ?? 06/03/2020 3:16 PM APPLIANCE ADJUSTER 06/03/2020 3:17 PM APPLIANCE ADJUSTER us Miriam VALLE LAB BLOOD ORDERAB LES Final Result [facility] [address] [place] [address] * COMP C3C4 (06/03/2020 3:16 PM APPLIANCE ADJUSTER) Complement component C3C 131 83 - 193 mg/dL [facility] Complement component C4C 29 15 - 57 mg/dL [facility] 06/03/2020 3:16 PM APPLIANCE ADJUSTER 06/03/2020 3:17 PM APPLIANCE ADJUSTER Miriam VALLE LAB BLOOD ORDERAB LES Final Result Performing Organization Address [facility] Co de Phone Number [facility] [address] [place] [address] * Erythrocyte sedimentation rate (06/03/2020 3:16 PM APPLIANCE ADJUSTER) Pathologist [facility] Erythrocyte sedimentation rate 6 < OR = 20 mm/h [facility] Blood specimen (specimen) 06/03/2020 3:16 PM APPLIANCE ADJUSTER 06/03/2020 3:17 PM APPLIANCE ADJUSTER Miriam VALLE LAB BLOOD ORDERAB LES Final Result Performing Organization Address [facility] de Phone Number [facility] [employer] [facility] [address] [place] [address] * Anti-double stranded DNA antibodies (06/03/2020 3:16 PM APPLIANCE ADJUSTER) Pathologist [facility] DNA (DS) ab <1 IU/mL [facility] Comment: ? IU/mL ? Interpretation ? < or = 4 ?Negative ? 5-9 ? Indeterminate ? > or = 10 ?? Positive Blood specimen (specimen) 06/03/2020 3:16 PM APPLIANCE ADJUSTER 06/03/2020 3:17 PM APPLIANCE ADJUSTER Miriam VALLE LAB BLOOD ORDERAB LES Final Result [facility] [address] [place] [address] * CBC with auto differential (06/03/2020 3:16 PM APPLIANCE ADJUSTER) WBC 7.8 3.8 - 10.8 Thousand/u L [...] [facility] Blood specimen (specimen) 06/03/2020 3:16 PM APPLIANCE ADJUSTER 06/03/2020 3:17 PM APPLIANCE ADJUSTER Miriam VALLE LAB BLOOD ORDERAB LES Final Result Performing Organization Address [facility] de Phone Number [facility] [address] [place] [address] * CRP (acute phase) (06/03/2020 3:16 PM APPLIANCE ADJUSTER) Pathologist [facility] C-RP 4.2 <8.0 mg/L [facility] Blood specimen (specimen) 06/03/2020 3:16 PM APPLIANCE ADJUSTER 06/03/2020 3:17 PM APPLIANCE ADJUSTER Miriam VALLE LAB BLOOD ORDERAB LES Final Result Performing Organization Address [facility] de Phone Number [facility] [address] [place] [address] * Comprehensive metabolic panel (06/03/2020 3:16 PM APPLIANCE ADJUSTER) Pathologist [facility] Glucose 82 65 - 99 mg/dL [facility] Comment: ? Fasting reference interval BUN 12 7 - 25 mg/dL [facility] Creatinine 0.91 0.50 - 1.10 mg/dL [facility] eGFR NON-AFR. SALVADOREAN 76 > OR = 60 mL/min/1. 73m2 [facility] EGFR 88 > OR = 60 mL/min/1. 73m2 [facility] BUN/creat ratio NOT APPLICABLE 6 - 22 (calc) [facility] Sodium 138 135 - 146 mmol/L [facility] Potassium, pl 4.1 3.5 - 5.3 mmol/L [facility] Chloride 106 98 - 110 mmol/L [facility] CO2 25 20 - 32 mmol/L [facility] Calcium 9.2 8.6 - 10.2 mg/dL [facility] Protein, sr 6.3 6.1 - 8.1 g/dL [facility] Albumin 4.2 3.6 - 5.1 g/dL [facility] GLOBULIN 2.1 1.9 - 3.7 g/dL (calc) [facility] Alb/glob ratio 2.0 1.0 - 2.5 (calc) [facility] Bilirubin, total 0.4 0.2 - 1.2 mg/dL [facility] Alk phos 54 31 - 125 U/L [facility] AST 15 10 - 35 U/L [facility] ALT (SGPT) 16 6 - 29 U/L [facility] Blood specimen (specimen) 06/03/2020 3:16 PM APPLIANCE ADJUSTER 06/03/2020 3:17 PM APPLIANCE ADJUSTER Miriam VALLE LAB BLOOD ORDERAB LES Final Result Performing Organization Address [facility] Co de Phone Number [facility] [address] [place] [address] * Protein / creatinine ratio, urine, random (06/03/2020 3:16 PM APPLIANCE ADJUSTER) Pathologist [facility] Creatinine, ur 112 20 - 275 mg/dL [facility] Protein/creatin ine ratio 89 21 - 161 mg/g creat [facility] Protein/Creatin ine Ratio 0.089 0.021 - 0.161 mg/mg creat [facility] Protein, ur, quant 10 5 - 24 mg/dL [facility] Urine 06/03/2020 3:16 PM APPLIANCE ADJUSTER 06/03/2020 3:17 PM APPLIANCE ADJUSTER Miriam [facility] URINE ORDERAB LES Final Result Performing Organization Address [facility]/ZIP Co de Phone Number [facility] [address] [place] [address] * (ABNORMAL) Urinalysis reflex to microscopic and culture Urine, bladder (06/03/2020 3:16 PM APPLIANCE ADJUSTER) Color, ur YELLOW YELLOW [facility] [...] INDICATED Urine, bladder 06/03/2020 3: 16 PM APPLIANCE ADJUSTER 06/03/2020 3:17 PM APPLIANCE ADJUSTER Miriam [facility] MICROBIOLOGY - GENERAL ORDERABLES Final Result [facility] [address] [address] [place] [address] documented in this encounter Visit Diagnoses Diagnosis [...] documented as of this encounter Care Teams Supervisor Adult Education Relationship Specialty Start Date End Date Bhupinder Tobias MD [address] [place] [address] PCP - General Internal Medicine 06/03/20 Isaiah Quiros MD [address] [facility] 1 [place] [address] Internal Medicine 02/18/17 03/19/21 Cash Heath III, MD [address] [place] [address] Rheumatology 04/12/17 Alex Mahajan MD [address] [place] [address] Referring Physician Internal Medicine 05/07/19 1 Bhupinder Tobias MD [address] [facility] [address] [place] [address] Referring Physician Internal Medicine 06/03/20 1 documented as of this encounter
--- OUTSIDE RECORDS SUMMARY | 2024-04-29 20:17 | XMS_ITS | Encounter Summary ---
Author Organization [facility] Address [address] [place] [address] Phone Care Team Providers Care Pickle Maker Name Role Phone Isaiah Quiros MD Unavailable Isaiah Quiros MD Primary Care Provider [phone] Kumar CARRILLO MD, Cash Howard Unavailable [phone] Alex Mahajan MD Unavailable [phone] Reason for Visit * Reason Onset Date Comments Patient Education 04/29/2020 [employer] Injec tion Training Encounter Details Date Type Department Care Team (Late st Contact Info) Description 04/29/2020 Documentation [facility] [address] [place] [address] Billy Samaniego Patient Education ([employer] Injection Training) Social History Tobacco Use Types Packs/Day Years Used Date Smoking Tobacco: Never Alcohol Use Standard Drinks/Week Comments No 0 (1 standard drink = 0.6 oz pur e alcohol) Comments No Sex and Gender Information Value Date Recorded Sex Assigned at Not on file Legal Sex Female 9:24 PM ANALOG CIRCUIT DESIGNER Gender Identity Female 08/14/2022 11:32 AM CDT [...] Patient left in stable condition at 1510. OG CIRCUIT DESIGNER documented in this encounter Plan of Treatment Not on file documented as of this encounter Visit Diagnoses Not on filedocumented in this encounter Care Teams Pickle Maker Relationship Specialty Start Date End Date Isaiah Quiros MD [address] [place] [address] PCP - General Internal Medicine 04/01/17 06/02/20 Isaiah Quiros MD [address] [place] [address] Internal Medicine 02/18/17 03/19/21 Cash Heath III, MD [address] [place] [address] Rheumatology 04/12/17 Alex Mahajan MD [address] [place] [address] Referring Physician Internal Medicine 05/07/19 1 documented as of this encounter
--- OUTSIDE RECORDS SUMMARY | 2024-04-29 20:17 | XMS_ITS | Encounter Summary ---
Author Organization [facility] Address [address] [place] [address] Phone Care Team Providers Care Bingo Usher Name Role Phone Isaiah Quiros MD Unavailable Isaiah Quiros MD Primary Care Provider [phone] Kumar CARRILLO MD, Cash Howard Unavailable [phone] Alex Mahajan MD Unavailable [phone] Reason for Visit * Reason Onset Date Comments Cos[employer]x Maintenance Dose ApprovedOther] 021 Eff: 04/11/2020 - 04/11/2021 Encounter Details Date Type Department Care Team (Late st Contact Info) Description 04/27/2020 Telephone [facility] [address] [place] [address] Tiara Rainey [employer] Maintenance Dose ApprovedOther] (Eff: 04/11/2020 - 04/11/2021 ) Social History Tobacco Use Types Packs/Day Years Used Date Smoking Tobacco: Never Alcohol Use Standard Drinks/Week Comments No 0 (1 standard drink = 0.6 oz pur e alcohol) Comments No Sex and Gender Information Value Date Recorded Sex Assigned at Not on file Legal Sex Female 9:24 PM ELEVATOR REPAIR MECHANIC Gender Identity Female 08/14/2022 11:32 AM [...] her started. Script has to go to [facility]. Pt has to contact [employer] Support @ [phone] for copay support. Spoke w/pt to inform her of status. She will call for copay card. Note given to Billy asking her to call pt to schedule teaching visit since we are starting w/samples. Set 5 samples aside for pt to cover loading dose. Script ready to send. ATOR REPAIR MECHANIC * Telephone Encounter - Tiara Rainey - 04/27/2020 3:05 PM CST Denial received. When reviewed the only thing denied is the loading dose. It states she can get 1 pen per 28 days starting 04/11/2020 - 04/11/2021. Spoke w/Shantell at [facility] & faxed the paperwork to her. They will see if they can determine where she has to fill the maintenance dose. We can supply pt w/samples for the loading dose. ATOR REPAIR MECHANIC * Telephone Encounter - Tiara Rainey - 04/27/2020 11:45 AM CST Per Cover My Meds the Cos[employer]x has been denied & the denial was sent to our office however we have not received denial. Called [email or web address] ([phone]) & spoke w/Rosalba. She reports it was denied as we are asking for too high of a dose. I explained we have only requested the lowestdose available. She said appeals are handled by the [employer] of [place]. She will send a copy of the denial w/appeal info. ATOR REPAIR MECHANIC documented in this encounter Plan of Treatment Not on file documented as of this encounter Visit Diagnoses Not on filedocumented in this encounter Care Teams Bingo Usher Relationship Specialty Start Date End Date Isaiah Quiros MD [address] [place] [address] PCP - General Internal Medicine 04/01/17 06/02/20 Isaiah Quiros MD [address] [place] [address] Internal Medicine 02/18/17 03/19/21 Cash Heath III, MD [address] [place] [address] Rheumatology 04/12/17 Alex Mahajan MD [address] [place] [address] Referring Physician Internal Medicine 05/07/19 1 documented as of this encounter
--- OUTSIDE RECORDS SUMMARY | 2024-04-29 20:17 | XMS_ITS | Encounter Summary ---
Author Organization [facility] Address [address] [place] [address] Phone Care Team Providers Care Director Of Litigation Name Role Phone Isaiah Quiros MD Unavailable Kumar CARRILLO MD, Cash Howard Unavailable [phone] Alex Mahajan MD Unavailable [phone] Bhupinder Tobias MD Unavailable [phone] Bhupinder Tobias MD Primary Care Provider [phone] Encounter Details Date Type Department Care Team (Late st Contact Info) Description 08/08/2020 2:00 PM CDT Office Visit [facility] [address] [place] [address] Miriam Frye PA [address] [place] [address] Psoriatic arthritis (CMS/HCC) (Primary Dx); Osteoporosis [...] on file Legal Sex Female 9:24 PM CASE MAKER Gender Identity Female 08/14/2022 11:32 AM CDT [...] injection so far. . No se from [employer]. Does not think thatLUMOback is working. Her father had hx of [...] all orders for this visit: Psoriatic arthritis (CMS/[facility]) (Primary) Assessment & Plan: Mod cdai. On imuran to 100mg bid and Stelara. Discussed potential se and risks of stelara tx. Stillhas joint swelling but so far only had 1 stelara injection so far. Sees gi soon for her colonoscopy. Continue imuran. Check labs today. Had both pfizer vaccines already, no se from this. Past serologies: [facility]ise panel 08/2019---labs reveal positive anti-RETURNED MATERIALS INSPECTOR antibody which is likely a false positive [...] showed osteoporosis Avise 08/2019---Avise labs reveal positive anti-RETURNED MATERIALS INSPECTOR antibody which is likely a false positive [...] showed osteoporosis Avise 08/2019---Avise labs reveal positive anti-RETURNED MATERIALS INSPECTOR antibody which is likely a false positive [...] Past serologies: [facility]ise panel 08/2019---labs reveal positive anti-RETURNED MATERIALS INSPECTOR antibody which is likely a false positive due tonegative ASHLEY. ?? RF neg but has a possible family hx of psoriatic arthritis (father) so if she develops psoriasis diagnosis will change to psoriatic arthritis. Rt hand US 09/2019 showed: ?? documented in this encounter Plan of Treatment Scheduled Orders Name Type Priority Associated Diagnoses Orde r Schedule C4 complement Lab Routine Psoriatic arthritis ([facility]) Kidney stones Encounter for long-term (current) use of medications Expected: 08/08/2020, Expires: 08/08/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 Lab Routine Psoriatic arthritis ([facility]) Kidney stones Encounter for long-term (current) use of medications Expected: 08/08/2020, Expires: 08/08/2021 documented as of this encounter Procedures Procedure Name Priority Date/Time Associated Diagnosis Comments C4 COMPLEMENT Routine 08/08/2020 1:56 PM CDT ANTI-DOUBLE STRANDED DNA ANTIBODIES Routine 08/08/2020 1:56 PM CDT Psoriatic arthritis ([facility]) Kidney stones Encounter for long-term [...] 08/08/2020 1:5 6 PM CDT Psoriatic arthritis ([facility]) Kidney stones Encounter for long-term (current) use of medications COMPREHENSIVE METABOLIC PANEL Routine 08/08/2020 1:56 PM CDT Psoriatic arthritis ([facility]/HCC) Kidney stones Encounter for long-term (current) use of medications documented in this encounter Results * C4 complement (08/08/2020 1:56 PM CDT) Complement component C4C 26 15 - 57 mg/dL [facility] 08/08/2020 1:56 PM CDT 08/08/2020 1:59 PM CDT us Miriam VALLE LAB BLOOD ORDERAB LES Final Result [facility] [address] [place] [address] * C3 complement (08/08/2020 1:56 PM CDT) Complement component C3C 128 83 - 193 mg/dL [facility] 08/08/2020 1:56 PM CDT 08/08/2020 1:59 PM CDT Miriam VALLE LAB BLOOD ORDERAB LES Final Result Performing Organization Address [facility] de Phone Number [facility] [address] [place] [address] * Erythrocyte sedimentation rate (08/08/2020 1:56 PM CDT) Erythrocyte sedimentation rate 2 < OR = 20 mm/h [facility] Blood specimen (specimen) 08/08/2020 1:56 PM CDT 08/08/2020 1:59 PM CDT Mirima VALLE LAB BLOOD ORDERAB LES Final Result Performing Organization Address [facility] de Phone Number [facility] [address] [place] [address] * Anti-double stranded DNA antibodies (08/08/2020 1:56 PM CDT) DNA (DS) ab <1 IU/mL [facility] Comment: ? IU/mL ? Interpretation ? < or = 4 ?Negative ? 5-9 ? Indeterminate ? > or = 10 ?? Positive Blood specimen (specimen) 08/08/2020 1:56 PM CDT 08/08/2020 1:59 PM CDT us Miriam VALLE LAB BLOOD ORDERAB LES Final Result [facility] [address] [place] [place] [address] * (ABNORMAL) CBC with auto differential (08/08/2020 [...] ORDERAB LES Final Result Performing Organization Address City/[facility]/ZIP Co de Phone Number [facility] [address] [place] [address] * CRP (acute phase) (08/08/2020 1:56 PM CDT) Pathologist [facility] C-RP 4.9 <8.0 mg/L [facility] Blood specimen (specimen) 08/08/2020 1:56 PM CDT 08/08/2020 1:59 PM CDT Miriam VALLE LAB BLOOD ORDERAB LES Final Result Performing Organization Address [facility] de Phone Number [facility] [address] [facility] [place] [address] * (ABNORMAL) Comprehensive metabolic panel (08/08/2020 1:56 PM CDT) Pathologist [facility] Glucose 115(H) 65 - 99 mg/dL [facility] [place] Comment: ? Fasting reference interval For someone without known diabetes, a glucose value between 100 and 125 mg/dL is consistent with prediabetes and should be confirmed with a follow-up test. BUN 12 7 - 25 mg/dL [facility] [place] Creatinine 0.94 0.50 - 1.10 mg/dL [facility] [place] eGFR NON-AFR. CITIZEN OF [place] 73 > OR = 60 mL/min/1. 73m2 [facility] [place] EGFR 84 > OR = 60 mL/min/1. 73m2 [facility] [place] BUN/creat ratio NOT APPLICABLE 6 - 22 (calc) [facility] [place] Sodium 137 135 - 146 mmol/L [facility] [place] Potassium, pl 4.2 3.5 - 5.3 mmol/L [facility] [place] Chloride 102 98 - 110 mmol/L [facility] [place] CO2 26 20 - 32 mmol/L [facility] [place] Calcium 9.4 8.6 - 10.2 mg/dL [facility] [place] Protein, sr 6.6 6.1 - 8.1 g/dL [facility] [place] Albumin 4.2 3.6 - 5.1 g/dL [facility] [place] GLOBULIN 2.4 1.9 - 3.7 g/dL (calc) [facility] [place] Alb/glob ratio 1.8 1.0 - 2.5 (calc) [facility] [place] Bilirubin, total 0.5 0.2 - 1.2 mg/dL [facility] [place] Alk phos 58 31 - 125 U/L [facility] [place] AST 23 10 - 35 U/L [facility] [place] ALT (SGPT) 27 6 - 29 U/L [facility] [place] Blood specimen (specimen) 08/08/2020 1:56 PM CDT 08/08/2020 1:59 PM CDT Miriam VALLE LAB BLOOD ORDERAB LES Final Result Performing Organization Address City/[facility] Co de Phone Number [facility] [address] [facility] [place] [address] * (ABNORMAL) Protein / creatinine ratio, urine, [...] URINE ORDERAB LES Final Result [facility] [address] [place] [address] * Urinalysis reflex to microscopic and culture [...] LAB MICROBIOLOGY - GENERAL ORDERABLES Final Result [facility] [address] [place] [address] documented in this encounter Visit Diagnoses Diagnosis Psoriatic arthritis (HCC)- Primary Psoriatic arthropathy Osteoporosis without current pathological fracture, unspecified osteoporosis type Kidney stones Calculus of kidney Encounter for long-term (current) use of medications Encounter for long-term (current) use of other medications Meredith-Danlos disease Meredith-Danlos syndrome documented in this encounter Care Teams Director Of Litigation Relationship Specialty Start Date End Date Bhupinder Tobias MD [address] [place] [address] PCP - General Internal Medicine 06/03/20 Isaiah Quiros MD [address] [facility] 1 [place] [address] Internal Medicine 02/18/17 03/19/21 Cash Heath III, MD [address] [place] [address] Rheumatology 04/12/17 Alex Mahajan MD [address] [place] [address] Referring Physician Internal Medicine 05/07/19 1 Bhupinder Tobias MD [address] [place] [address] Referring Physician Internal Medicine 06/03/20 1 documented as of this encounter
--- OUTSIDE RECORDS SUMMARY | 2024-04-29 20:17 | XMS_ITS | Encounter Summary ---
Author Organization [facility] Address [address] [place] [address] Phone Care Team Providers Care Senior Sales Associate Name Role Phone Isaiah Quiros MD Unavailable Kumar CARRILLO MD, Cash Howard Unavailable [phone] Alex Mahajan MD Unavailable [phone] Bhupinder Tobias MD Unavailable [phone] Bhupinder Tobias MD Primary Care Provider [phone] Jorge Aguiar MD Unavailable [phone] Encounter Details Date Type Department Care Team (Late st Contact Info) Description 02/06/2021 1:00 PM CDT Office Visit [facility] [address] [place] [address] Miriam Frye PA [address] [place] [address] Psoriatic arthritis (CMS/HCC) (HCC) (Primary [...] on file Legal Sex Female 9:24 PM ENVIRONMENTAL ANALYST Gender Identity Female 08/14/2022 11:32 AM [...] Body Mass Index 31.02 06/03/2020 3:14 PM ENVIRONMENTAL ANALYST documented in this encounter Patient Instructions * Patient Instructions* Miriam Frye PA - 02/06/2021 1:00 PM CDT Patient Education Patient Education Prednisone (By mouth) Prednisone (OSKC-tw-vaod) Treats many diseases and conditions, especially problems [...] pharmacist before using any other medicine, including ymgg-alo-tgsvswc medicines, vitamins, and herbal products. ?? Tell [...] may report side effects to FDA at 5-091-WLY-6053 ?? 2017 [employer] Information is for End User's use only and may not be sold, redistributed or otherwise used for commercial purposes. The above information is an restorative rehab aide only. It is not intended as medical advice for individual conditions or treatments. Talk to your doctor, nurse or pharmacist before following any medical regimen to see if it is safe and effective for you. Tofacitinib (By mouth) Tofacitinib (ubn-do-QBR-ti-nib) Treats rheumatoid arthritis. Brand Name(s): Xeljanz, Xeljanz [...] pharmacist before using any other medicine, including kyaw-zca-watmvgl medicines, vitamins, and herbal products. ?? Some [...] may report side effects to FDA at 7-861-JHG-4245 ?? 2017 [employer] Information is for End User's use only and may not be sold, redistributed or otherwise used for commercial purposes. The above information is an restorative rehab aide only. It is not intended as [...] Past serologies: [facility] panel 08/2019---labs reveal positive anti-SOLAR ENERGY SYSTEM INSTALLER antibody which is likely a false positive [...] showed osteoporosis Avise 08/2019---Avise labs reveal positive anti-SOLAR ENERGY SYSTEM INSTALLER antibody which is likely a false positive [...] Past serologies: [facility]ise panel 08/2019---labs reveal positive anti-SOLAR ENERGY SYSTEM INSTALLER antibody which is likely a false positive [...] showed osteoporosis Avise 08/2019---Avise labs reveal positive anti-SOLAR ENERGY SYSTEM INSTALLER antibody which is likely a false positive due tonegative ASHLEY. Her father had psoriasis, pt changed from ra to PsA on 03/25/2020. ?? documented in this encounter Plan of Treatment Not on file documented as of this encounter Procedures Procedure Name Priority Date/Time Associated Diagnosis Comments CBC WITH AUTO DIFFERENTIAL Routine 02/06/2021 2:09 PM CDT Psoriatic arthritis ([facility]) ([facility]) Encounter for long-term (current) use of medications ERYTHROCYTE SEDIMENTATION RATE Routine 02/06/2021 2:09 PM CDT Psoriatic arthritis ([facility]) ([facility]) Encounter for long-term (current) use of medications CRP (ACUTE PHASE) Routine 02/06/2021 2:0 9 PM CDT Psoriatic arthritis ([facility]) ([facility]) Encounter for long-term [...] ORDERAB LES Final Result Performing Organization Address [place] Co de Phone Number [facility] [address] [place] [address] * CRP (acute phase) (02/06/2021 2:09 PM CDT) C-RP 5.6 <8.0 mg/L [facility] Blood specimen (specimen) 02/06/2021 2:09 PM CDT 02/06/2021 2:09 PM CDT Miriam VALLE LAB BLOOD ORDERAB LES Final Result Performing Organization Address [place] Co de Phone Number [facility] [address] [place] [address] * Comprehensive metabolic panel (02/06/2021 2:09 PM CDT) Glucose 82 65 - 99 mg/dL [facility] Comment: ? Fasting reference interval BUN 14 7 - 25 mg/dL [facility] Creatinine 0.93 0.50 - 1.10 mg/dL [facility] eGFR NON-AFR. [place] 74 > OR = 60 mL/min/1. 73m2 [facility] EGFR 85 > OR = 60 mL/min/1. 73m2 [facility] BUN/creat ratio NOT APPLICABLE 6 - 22 (calc) [facility] Sodium 136 135 - 146 mmol/L [facility] Potassium, pl 4.4 3.5 - 5.3 mmol/L [facility] Chloride 104 98 - 110 mmol/L [facility] CO2 25 20 - 32 mmol/L [facility] Calcium 9.1 8.6 - 10.2 mg/dL [facility] Protein, sr 7.1 6.1 - 8.1 g/dL [facility] Albumin 4.2 3.6 - 5.1 g/dL [facility] GLOBULIN 2.9 1.9 - 3.7 g/dL (calc) [facility] Alb/glob ratio 1.4 1.0 - 2.5 (calc) [facility] Bilirubin, total 0.3 0.2 - 1.2 mg/dL [facility] Alk phos 76 31 - 125 U/L [facility] AST 12 10 - 35 U/L [facility] ALT (SGPT) 11 6 - 29 U/L [facility] Blood specimen (specimen) 02/06/2021 2:09 PM CDT 02/06/2021 2:09 PM CDT us Miriam VALLE LAB BLOOD ORDERAB LES Final Result [facility] [address] [place] [address] * (ABNORMAL) CBC with auto differential (02/06/2021 [...] BLOOD ORDERAB LES Final Result [facility] [address] [place] [address] documented in this encounter Visit Diagnoses Diagnosis [...] documented as of this encounter Care Teams Senior Sales Associate Relationship Specialty Start Date End Date Bhupinder Tobias MD [address] [facility] 120 [place] [address] PCP - General Internal Medicine 06/03/20 Isaiah Quiros MD [address] [facility] 1 [place] [address] Internal Medicine 02/18/17 03/19/21 Cash Heath III, MD [address] [place] [address] Rheumatology 04/12/17 Alex Mahajan MD [address] [place] [address] Referring Physician Internal Medicine 05/07/19 1 Bhupinder Tobias MD [address] [facility] [address] [place] [address] Referring Physician Internal Medicine 06/03/20 1 Jorge Aguiar MD [address] [place] [address] Consulting Physician Urology 11/10/20 documented as of this encounter
--- OUTSIDE RECORDS SUMMARY | 2024-04-29 20:17 | XMS_ITS | Encounter Summary ---
Author Organization [facility] Address [address] [place] [address] Phone Care Team Providers Care Sandal Parts Assembler Name Role Phone Isaiah Quiros MD Unavailable Kumar CARRILLO MD, Cash Howard Unavailable [phone] Alex Mahajan MD Unavailable [phone] Bhupinder Tobias MD Unavailable [phone] Bhupinder Tobias MD Primary Care Provider [phone] Jorge Aguiar MD Unavailable [phone] Reason for Visit * Reason Onset Date Comments González VALLEJO Approved. Auth [id number] expires . Pl 11/24/2020 Encounter Details Date Type Department Care Team (Late st Contact Info) Description 11/24/2020 Telephone [facility] [address] [place] [address] Ghazala Westbrook IV Approved. Auth [id number] expires 11/15/2022. Pl Social History Tobacco Use Types Packs/Day Years Used Date Smoking Tobacco: Never Alcohol Use Standard Drinks/Week Comments No 0 (1 standard drink = 0.6 oz pur e alcohol) Comments No Sex and Gender Information Value Date Recorded Sex Assigned at Not on file Legal Sex Female 9:24 PM CRIME ANALYST Gender Identity Female 08/14/2022 11:32 AM CDT Sexual Orientation Straight 02/13/2023 7: 01 AM CDT documented as of this encounter Miscellaneous Notes * Telephone Encounter - Maisha Avila RN - 11/24/2020 1:33 PM CDT Scheduled * Telephone Encounter - Ghazala Westbrook - 11/24/2020 12:54 PM CDT Orencia IV Approved. Auth [id number] expires 11/15/2022. Please schedule patient. Thank you. documented in this encounter Plan of Treatment Not on file documented as of this encounter Visit Diagnoses Not on filedocumented in this encounter Care Teams Sandal Parts Assembler Relationship Specialty Start Date End Date Bhupinder Tobias MD [address] [facility] [address] [place], [place] [address] PCP - General Internal Medicine 06/03/20 Isaiah Quiros MD [address] [address] Internal Medicine 02/18/17 03/19/21 Cash Heath III, MD [address] [place] [address] Rheumatology 04/12/17 Alex Mahajan MD [address] [place] [address] Referring Physician Internal Medicine 05/07/19 1 Bhupinder Tobias MD [address] [place] [address] Referring Physician Internal Medicine 06/03/20 1 Jorge Aguiar MD [address] [address] Consulting Physician Urology 11/10/20 documented as of this encounter
--- OUTSIDE RECORDS SUMMARY | 2024-04-29 20:17 | XMS_ITS | Encounter Summary ---
Author Organization [facility] Address [address] [place] [address] Phone Care Team Providers Care Electrical Cad Designer Name Role Phone Isaiah Quiros MD Unavailable Isaiah Quiros MD Primary Care Provider [phone] Kumar CARRILLO MD, Cash Howard Unavailable [phone] Alex Mahajan MD Unavailable [phone] Reason for Visit * Reason Onset Date Comments UTI 02/22/2020 Encounter Details Date Type Department Care Team (Late st Contact Info) Description 02/22/2020 Telephone [facility] [address] [place] [address] Mick Can UTI Social History Tobacco Use Types Packs/Day Years Used Date Smoking Tobacco: Never Alcohol Use Standard Drinks/Week Comments No 0 (1 standard drink = 0.6 oz pur e alcohol) Comments No Sex and Gender Information Value Date Recorded Sex Assigned at Not on file Legal Sex Female 9:24 PM DRAPERY SUPERVISOR Gender Identity Female 08/14/2022 11:32 AM [...] on: 02/22/2020 03:51 PM Modules accepted: Orders ERY SUPERVISOR * Telephone Encounter - Mick Can - 02/22/2020 3:43 PM CST Images from the original note were not included. Miriam Frye PA P [facility] ?? She grew strep. ?? Is she allx to pcn? ??If not tell her to not bulk picker cipro and we need to call in amoxil 500mg tid x 7d. Left vm to inform pt of change in antibiotic. Per chart the only allergy is Ibuprofen. Asked pt to call back if she has a PCN allergy we are unaware of now. Called Sabrina @ [phone] & spoke w/Brandy to cancel the Cipro & change to Amoxil as directed. Script added to med list. Please sign script. ERY SUPERVISOR * Telephone Encounter - Mick Can - 02/22/2020 12:17 PM CST Spoke w/pt & she denies any uti symptoms at this point. Pt also denies Cipro allergy. Lab ordergenerated & mailed to pt. Results sent to pcp. Script ready to sign. ERY SUPERVISOR * Telephone Encounter - Mick Can - 02/22/2020 12:17 PM CST ----- Message from LEONARD Melendrez sent at 02/22/2020 9:47 AM DRAPERY SUPERVISOR ----- Had wbc and blood in urine. Culture is pending. If not allx to cipro call in 250mg bid x 7d. Recheck UA in 10d. Lots of water. If symptoms worsen (fever, chills, nausea, abd pain, hematuria, worsening dysuria) to ER. ERY SUPERVISOR documented in this encounter Plan of [...] documented as of this encounter Care Teams Electrical Cad Designer Relationship Specialty Start Date End Date Isaiah Quiros MD [address] [place] [address] PCP - General Internal Medicine 04/01/17 06/02/20 Isaiah Quiros MD [address] [place] [address] Internal Medicine 02/18/17 03/19/21 Cash Heath III, MD [address] [place] [address] Rheumatology 04/12/17 Alex Mahajan MD [address] [place] [address] Referring Physician Internal Medicine 05/07/19 1 documented as of this encounter
--- OUTSIDE RECORDS SUMMARY | 2024-04-29 20:17 | XMS_ITS | Encounter Summary ---
Author Organization [facility] Address [address] [place] [address] Phone Care Team Providers Care Control Clerk Repairs Name Role Phone Isaiah Quiros MD Unavailable Kumar CARRILLO MD, Cash Howard Unavailable [phone] Alex Mahajan MD Unavailable [phone] Bhupinder Tobias MD Unavailable [phone] Bhupinder Tobias MD Primary Care Provider [phone] Jorge Aguiar MD Unavailable [phone] Reason for Visit * Reason Onset Date Comments AZA Dose Clarification 01/19/2021 Encounter Details Date Type Department Care Team (Late st Contact Info) Description 01/19/2021 Telephone [facility] [address] [place] [address] Tiara Rainey AZA Dose Clarification Social History Tobacco Use Types Packs/Day Years Used Date Smoking Tobacco: Never Alcohol Use Standard Drinks/Week Comments No 0 (1 standard drink = 0.6 oz pur e alcohol) Comments No Sex and Gender Information Value Date Recorded Sex Assigned at Not on file Legal Sex Female 9:24 PM RN CARDIAC REHAB Gender Identity Female 08/14/2022 11:32 AM CDT [...] documented as of this encounter Care Teams Control Clerk Repairs Relationship Specialty Start Date End Date Bhupinder Tobias MD [address] [place] [address] PCP - General Internal Medicine 06/03/20 Isaiah Quiros MD [address] [facility] 1 [place] [address] Internal Medicine 02/18/17 03/19/21 Cash Heath III, MD [address] [place] [address] Rheumatology 04/12/17 Alex Mahajan MD [address] [place] [address] Referring Physician Internal Medicine 05/07/19 1 Bhupinder Tobias MD [address] [address] Referring Physician Internal Medicine 06/03/20 1 Jorge Aguiar MD [address] [facility] 120 [place] [address] Consulting Physician Urology 11/10/20 documented as of this encounter
--- OUTSIDE RECORDS SUMMARY | 2024-04-29 20:17 | XMS_ITS | Encounter Summary ---
Author Organization [facility] Address [address] [place] [address] Phone Care Team Providers Care Director Of People Name Role Phone Isaiah Quiros MD Unavailable Isaiah Quiros MD Primary Care Provider [phone] Kumar CARRILLO MD, Cash Howard Unavailable Alex Mahajan MD Unavailable [phone] Encounter Details Date Type Department Care Team (Late st Contact Info) Description 02/22/2020 Orders Only [facility] [address] [place] [address] Miriam Frye PA [address] [place] [address] Social History Tobacco Use Types Packs/Day Years Used Date Smoking Tobacco: Never Alcohol Use Standard Drinks/Week Comments No 0 (1 standard drink = 0.6 oz pur e alcohol) Comments No Sex and Gender Information Value Date Recorded Sex Assigned at Not on file Legal Sex Female 9:24 PM MARBLE COPER Gender Identity Female 08/14/2022 11:32 AM CDT [...] filedocumented in this encounter Care Teams Director Of People Relationship Specialty Start Date End Date Isaiah Quiros MD [address] [place] [address] PCP - General Internal Medicine 04/01/17 06/02/20 Isaiah Quiros MD [address] [place] [address] Internal Medicine 02/18/17 03/19/21 Cash Heath III, MD [address] [facility] [address] [place] [address] Rheumatology 04/12/17 Alex Mahajan MD [address] [facility] [address] [place] [address] Referring Physician Internal Medicine 05/07/19 1 documented as of this encounter
--- OUTSIDE RECORDS SUMMARY | 2024-04-29 20:17 | XMS_ITS | Encounter Summary ---
Author Organization [facility] Address [address] [place] [address] Phone Care Team Providers Care Veterinary Practice Manager Name Role Phone Isaiah Quiros MD Unavailable Kumar CARRILLO MD, Cash Howard Unavailable [phone] Alex Mahajan MD Unavailable [phone] Bhupinder Tobias MD Unavailable [phone] Bhupinder Tobias MD Primary Care Provider [phone] Reason for Visit * Reason Onset Date Comments Rigo VALLE Started 06/03/2020 Encounter Details Date Type Department Care Team (Late st Contact Info) Description 06/03/2020 Telephone [facility] [address] [place] [address] Miriam Frye PA [address] [place] [address] Rigo VALLE Started Social History Tobacco Use Types Packs/Day Years Used Date Smoking Tobacco: Never Alcohol Use Standard Drinks/Week Comments No 0 (1 standard drink = 0.6 oz pur e alcohol) Comments No Sex and Gender Information Value Date Recorded Sex Assigned at Not on file Legal Sex Female 9:24 PM CONCRETE SAW OPERATOR Gender Identity Female 08/14/2022 11:32 AM CDT Sexual Orientation Straight 02/13/2023 7: 01 AM CDT documented as of this encounter Miscellaneous Notes * Telephone Encounter - Tiara Rainey - 06/07/2020 11:02 AM CST Rigo VALLE submitted to [place] RETE SAW OPERATOR * Telephone Encounter - Miriam Frye PA - 06/03/2020 5:23 PM CST Having gi upset with cosentyx, change to rigo. RETE SAW OPERATOR documented in this encounter Plan of Treatment Not on file documented as of this encounter Visit Diagnoses Not on filedocumented in this encounter Care Teams Veterinary Practice Manager Relationship Specialty Start Date End Date Bhupinder Tobias MD [address] [facility] [address] [place] [address] PCP - General Internal Medicine 06/03/20 Isaiah Quiros MD [address] [facility] 1 [place] [address] Internal Medicine 02/18/17 03/19/21 Cash Heath III, MD [address] [facility] [address] [place] [address] Rheumatology 04/12/17 Alex Mahajan MD [address] [facility] [address] [place], [place] [address] Referring Physician Internal Medicine 05/07/19 1 Bhupinder Tobias MD [address] [facility] [address] [facility] [address] [place] [address] Referring Physician Internal Medicine 06/03/20 1 documented as of this encounter
--- OUTSIDE RECORDS SUMMARY | 2024-04-29 20:17 | XMS_ITS | Encounter Summary ---
Author Organization [facility] Address [address] [place] [address] Phone Care Team Providers Care Sales Engagement Manager Name Role Phone Isaiah Quiros MD Unavailable Isaiah Quiros MD Primary Care Provider [phone] Kumar CARRILLO MD, Cash Howard Unavailable [phone] Alex Mahajan MD Unavailable [phone] Reason for Visit * Reason Onset Date Comments Patient wants to stay with injectable Orencia at this time. 02/19/2020 Encounter Details Date Type Department Care Team (Late st Contact Info) Description 02/19/2020 Telephone [facility] [address] [place] [address] Ghazala [place]brook Patient wants to stay with injectable Orencia at this time. Social History Tobacco Use Types Packs/Day Years Used Date Smoking Tobacco: Never Alcohol Use Standard Drinks/Week Comments No 0 (1 standard drink = 0.6 oz pur e alcohol) Comments No Sex and Gender Information Value Date Recorded Sex Assigned at Not on file Legal Sex Female 9:24 PM REGRIND MILL OPERATOR Gender Identity Female 08/14/2022 11:32 AM [...] filedocumented in this encounter Care Teams Sales Engagement Manager Relationship Specialty Start Date End Date Isaiah Quiros MD [address] [place] [address] PCP - General Internal Medicine 04/01/17 06/02/20 Isaiah Quiros MD [address] [place] [address] Internal Medicine 02/18/17 03/19/21 Cash Heath III, MD [address] [facility] [address] [place] [address] Rheumatology 04/12/17 Alex Mahajan MD [address] [facility] [address] [place] [address] Referring Physician Internal Medicine 05/07/19 1 documented as of this encounter
--- OUTSIDE RECORDS SUMMARY | 2024-04-29 20:17 | XMS_ITS | Encounter Summary ---
Author Organization [facility] Address [address] [place] [address] Phone Care Team Providers Care Crown Perforator Operator Name Role Phone Isaiah Quiros MD Unavailable Isaiah Quiros MD Primary Care Provider [phone] Kumar CARRILLO MD, Cash Howard Unavailable [phone] Alex Mahajan MD Unavailable [phone] Reason for Visit * Reason Onset Date Comments González VALLE Started 02/19/2020 Encounter Details Date Type Department Care Team (Late st Contact Info) Description 02/19/[address] [address] Miriam Frye PA [address] [place] [address] González VALLE Started Social History Tobacco Use Types Packs/Day Years Used Date Smoking Tobacco: Never Alcohol Use Standard Drinks/Week Comments No 0 (1 standard drink = 0.6 oz pur e alcohol) Comments No Sex and Gender Information Value Date Recorded Sex Assigned at Not on file Legal Sex Female 9:24 PM BOOKS SALESPERSON Gender Identity Female 08/14/2022 11:32 AM CDT Sexual Orientation Straight 02/13/2023 7: 01 AM CDT documented as of this encounter Miscellaneous Notes * Telephone Encounter - Tiara Rainey - 02/19/2020 12:08 PM CDT PA request submitted to BENNETT * Telephone Encounter - Miriam Frye PA - 02/19/2020 11:35 AM CDT Please change back to sq orencia documented in this encounter Plan of Treatment Not on file documented as of this encounter Visit Diagnoses Not on filedocumented in this encounter Care Teams Crown Perforator Operator Relationship Specialty Start Date End Date Isaiah Quiros MD [address] [place] [address] PCP - General Internal Medicine 04/01/17 06/02/20 Isaiah Quiros MD [address] [place] [address] Internal Medicine 02/18/17 03/19/21 Cash Heath III, MD [address] [facility] [address] [place] [address] Rheumatology 04/12/17 Alex Mahajan MD [address] [facility] [address] [place] [address] Referring Physician Internal Medicine 05/07/19 1 documented as of this encounter
--- OUTSIDE RECORDS SUMMARY | 2024-04-29 20:17 | XMS_ITS | Encounter Summary ---
Author Organization [facility] Address [address] [place] [address] Phone Care Team Providers Care Crimping Machine Operator Name Role Phone Isaiah Quiros MD Unavailable Isaiah Quiros MD Primary Care Provider [phone] Kumar CARRILLO MD, Cash Howard Unavailable [phone] Alex Mahajan MD Unavailable [phone] Reason for Visit * Reason Comments Rheumatoid Arthritis Encounter Details Date Type Department Care Team (Late st Contact Info) Description 03/25/2020 1:15 PM FRONTLOAD DRIVER Office Visit [facility] [address] [place] [address] Miriam Frye PA [address] [place] [address] Psoriatic arthritis (CMS/HCC) (Primary Dx); [...] on file Legal Sex Female 9:24 PM FRONTLOAD DRIVER Gender Identity Female 08/14/2022 11:32 AM CDT Sexual Orientation Straight 02/13/2023 7: 01 AM CDT documented as of this encounter Last Filed Vital Signs Vital Sign Reading Time Taken Comments Blood Pressure 136/80 03/25/2020 2:03 PM FRONTLOAD DRIVER Pulse - - Temperature 36.4 ??C (97.5 ??F) 03/25/2020 2:03 PM CS T Respiratory Rate - - Oxygen Saturation - - Inhaled Oxygen Concentration - - Weight 101.2 kg (223 lb) 03/25/2020 2:03 PM FRONTLOAD DRIVER Height 167.6 cm (5' 6 ) 03/25/2020 2:03 PM FRONTLOAD DRIVER Body Mass Index 35.99 03/25/2020 2:03 PM FRONTLOAD DRIVER documented in this encounter Patient Instructions * Patient Instructions* Miriam Frye PA - 03/25/2020 1:15 PM FRONTLOAD DRIVER Patient Education Secukinumab (By injection) Secukinumab ([id number]) Treats plaque psoriasis, psoriatic arthritis, and ankylosing [...] pharmacist before using any other medicine, including yldw-tpm-[id number] medicines, vitamins, and herbal products. ?? Some [...] may report side effects to FDA at 4-888-AQN-5232 ?? 2017 [employer] Information is for End User's use only and may not be sold, redistributed or otherwise used for commercial purposes. The above information is an clerical aide teacher only. It is not intended as medical advice for individual conditions or treatments. Talk to your doctor, nurse or pharmacist before following any medical regimen to see if it is safe and effective for you. TLOAD DRIVER documented in this encounter Progress Notes * [...] se from imuran. Does not think that [employer] is working. Her father had hx of [...] all orders for this visit: Psoriatic arthritis (CMS/[facility]) (Primary) Assessment & Plan: On orencia sq again and imuran to 100mg bid but she is failing orencia. Her father had hx of psoriasis so will change her diagnosis from seronegative RA to Psoriatic arthritis. Seen with Dr Heath today. To get 1st inj in the office. Discussed risks and se of cosentyx. Past serologies: [facility] panel 08/2019---labs reveal positive anti-PARK WORKER SUPERVISOR antibody which is likely a false positive [...] showed osteoporosis [facility] 08/2019---[facility]ise labs reveal positive anti-PARK WORKER SUPERVISOR antibody which is likely a false positive [...] Heath III, MD at 03/25/2020 4:45 PM FRONTLOAD DRIVER TLOAD DRIVER TLOAD DRIVER documented in this encounter Miscellaneous Notes * [...] Past serologies: [facility]ise panel 08/2019---labs reveal positive anti-PARK WORKER SUPERVISOR antibody which is likely a false positive due tonegative ASHLEY. ?? RF neg but has a possible family hx of psoriatic arthritis (father) so if she develops psoriasis diagnosis will change to psoriatic arthritis. Rt hand US 09/2019 showed: ?? TLOAD DRIVER TLOAD DRIVER * Assessment & Plan Note - Miriam Frye PA - 03/25/2020 8:34 AM CSTAssociated Problem(s): Osteoporosis without current pathological fracture bds checked by pcp in past, is taking ca and vit d and pcp checked vit D and PTH per pt was wnl. Her pcp started her on alendronate 70mg po qweek. Taking ca + vit d 1200mg qd. TLOAD DRIVER * Assessment & Plan Note - Miriam [...] showed osteoporosis Avise 08/2019---[facility]ise labs reveal positive anti-PARK WORKER SUPERVISOR antibody which is likely a false positive due tonegative ASHLEY. Her father had psoriasis, pt changed from ra to PsA on 03/25/2020. ?? TLOAD DRIVER TLOAD DRIVER TLOAD DRIVER TLOAD DRIVER * Assessment & Plan Note - Miriam Frye PA - 03/25/2020 8:33 AM CSTAssociated Problem(s): Meredith-Danlos disease Was advised in past to get chest CT to r/o aortic aneurysm, to discuss with pcp. TLOAD DRIVER documented in this encounter Plan of [...] Comments C4 COMPLEMENT Routine 03/25/2020 2:01 PM FRONTLOAD DRIVER ANTI-DOUBLE STRANDED DNA ANTIBODIES Routine 03/25/2020 2:01 PM FRONTLOAD DRIVER Encounter for long-term (current) use of medications URINALYSIS AND REFLEX TO MICROSCOPIC AND CULTURE Routine 03/25/2020 2:01 PM FRONTLOAD DRIVER Encounter for long-term (current) use of medications CBC WITH AUTO DIFFERENTIAL Routine 03/25/2020 2:01 PM FRONTLOAD DRIVER Encounter for long-term (current) use of medications PROTEIN / CREATININE RATIO, URINE, RANDOM Routine 03/25/2020 2:01 PM FRONTLOAD DRIVER Encounter for long-term (current) use of medications ERYTHROCYTE SEDIMENTATION RATE Routine 03/25/2020 2:01 PM FRONTLOAD DRIVER Encounter for long-term (current) use of medications C3 COMPLEMENT Routine 03/25/2020 2:01 PM FRONTLOAD DRIVER CRP (ACUTE PHASE) Routine 03/25/2020 2:0 1 PM FRONTLOAD DRIVER Encounter for long-term (current) use of medications URIC ACID Routine 03/25/2020 2:01 PM FRONTLOAD DRIVER COMPREHENSIVE METABOLIC PANEL Routine 03/25/2020 2:01 PM FRONTLOAD DRIVER Encounter for long-term (current) use of medications documented in this encounter Results * C4 complement (03/25/2020 2:01 PM FRONTLOAD DRIVER) Complement component C4C 31 15 - 57 mg/dL [facility] 03/25/2020 2:01 PM FRONTLOAD DRIVER 03/25/2020 2:03 PM FRONTLOAD DRIVER Miriam VALLE LAB BLOOD ORDERAB LES Final Result Performing Organization Address [facility] Co de Phone Number [facility] [address] [place] [address] * C3 complement (03/25/2020 2:01 PM FRONTLOAD DRIVER) Complement component C3C 144 83 - 193 mg/dL [facility] 03/25/2020 2:01 PM FRONTLOAD DRIVER 03/25/2020 2:03 PM FRONTLOAD DRIVER Miriam VALLE LAB BLOOD ORDERAB LES Final Result Performing Organization Address City/[facility] Co de Phone Number [facility]ST [facility] [address] [place] [address] * Uric acid (03/25/2020 2:01 PM FRONTLOAD DRIVER) Uric acid 3.3 2.5 - 7.0 mg/dL [facility] Comment: Therapeutic target for gout patients: <6.0 mg/dL ?? 03/25/2020 2:01 PM FRONTLOAD DRIVER 03/25/2020 2:03 PM FRONTLOAD DRIVER us Miriam VALLE LAB BLOOD ORDERAB LES Final Result Performing Organization Address [facility] de Phone Number [facility] [address] [address] [facility] [place] [address] * Erythrocyte sedimentation rate (03/25/2020 2:01 PM FRONTLOAD DRIVER) Pathologist [facility] Erythrocyte sedimentation rate 6 < OR = 20 mm/h [facility] Blood specimen (specimen) 03/25/2020 2:01 PM FRONTLOAD DRIVER 03/25/2020 2:03 PM FRONTLOAD DRIVER Miriam VALLE LAB BLOOD ORDERAB LES Final Result Performing Organization Address [facility] de Phone Number [facility] [address] [address] [facility] [place] [address] * Anti-double stranded DNA antibodies (03/25/2020 2:01 PM FRONTLOAD DRIVER) Pathologist [facility] DNA (DS) ab <1 IU/mL [facility] Comment: ? IU/mL ? Interpretation ? < or = 4 ?Negative ? 5-9 ? Indeterminate ? > or = 10 ?? Positive Blood specimen (specimen) 03/25/2020 2:01 PM FRONTLOAD DRIVER 03/25/2020 2:03 PM FRONTLOAD DRIVER Miriam VALLE LAB BLOOD ORDERAB LES Final Result Performing Organization Address [facility] de Phone Number [facility] [address] [address] [facility] [place] [address] * CBC with auto differential (03/25/2020 2:01 PM FRONTLOAD DRIVER) Pathologist [facility] WBC 7.7 3.8 - 10.8 Thousand/u L [...] nexa Blood specimen (specimen) 03/25/2020 2:01 PM FRONTLOAD DRIVER 03/25/2020 2:03 PM FRONTLOAD DRIVER us Miriam VALLE LAB BLOOD ORDERAB LES Final Result [facility] [address] [place] [address] * CRP (acute phase) (03/25/2020 2:01 PM FRONTLOAD DRIVER) Pathologist [facility] C-RP 7.9 <8.0 mg/L [facility] Blood specimen (specimen) 03/25/2020 2:01 PM FRONTLOAD DRIVER 03/25/2020 2:03 PM FRONTLOAD DRIVER us Miriam VALLE LAB BLOOD ORDERAB LES Final Result [facility] [address] [place] [address] * Comprehensive metabolic panel (03/25/2020 2:01 PM FRONTLOAD DRIVER) Glucose 86 65 - 99 mg/dL [facility] Comment: ? Fasting reference interval BUN 11 7 - 25 mg/dL [facility] Creatinine 0.94 0.50 - 1.10 mg/dL [facility] eGFR NON-AFR. ERITREAN 73 > OR = 60 mL/min/1. 73m2 [facility] EGFR 85 > OR = 60 mL/min/1. 73m2 [facility] BUN/creat ratio NOT APPLICABLE 6 - 22 (calc) [facility] Sodium 137 135 - 146 mmol/L [facility] Potassium, pl 4.3 3.5 - 5.3 mmol/L [facility] Chloride 106 98 - 110 mmol/L [facility] CO2 21 20 - 32 mmol/L [facility] Calcium 8.9 8.6 - 10.2 mg/dL [facility] Protein, sr 6.6 6.1 - 8.1 g/dL [facility] Albumin 4.1 3.6 - 5.1 g/dL [facility] GLOBULIN 2.5 1.9 - 3.7 g/dL (calc) [facility] Alb/glob ratio 1.6 1.0 - 2.5 (calc) [facility] Bilirubin, total 0.3 0.2 - 1.2 mg/dL [facility] Alk phos 65 31 - 125 U/L [facility] AST 12 10 - 35 U/L [facility] ALT (SGPT) 13 6 - 29 U/L [facility] Blood specimen (specimen) 03/25/2020 2:01 PM FRONTLOAD DRIVER 03/25/2020 2:03 PM FRONTLOAD DRIVER Miriam VALLE LAB BLOOD ORDERAB LES Final Result Performing Organization Address [facility] de Phone Number [facility] [address] [place] [address] * (ABNORMAL) Protein / creatinine ratio, urine, random (03/25/2020 2:01 PM FRONTLOAD DRIVER) Creatinine, ur 25 20 - 275 mg/dL [...] by repeat analysis. Urine 03/25/2020 2:01 PM FRONTLOAD DRIVER 03/25/2020 2:03 PM FRONTLOAD DRIVER Miriam VALLE LAB URINE ORDERAB LES Final Result Performing Organization Address [facility] de Phone Number [facility] [address] [place] [address] * Urinalysis reflex to microscopic and culture Urine, bladder (03/25/2020 2:01 PM FRONTLOAD DRIVER) Color, ur YELLOW YELLOW [facility] [...] INDICATED Urine, bladder 03/25/2020 2: 01 PM FRONTLOAD DRIVER 03/25/2020 2:03 PM FRONTLOAD DRIVER us Miriam VALLE LAB MICROBIOLOGY - GENERAL ORDERABLES Final Result Performing Organization Address City/State/[facility] Co de Phone Number [facility] [address] [place] [address] documented in this encounter Visit Diagnoses Diagnosis Psoriatic arthritis (HCC)- Primary Psoriatic arthropathy Osteoporosis without current pathological fracture, unspecified osteoporosis type Encounter for long-term (current) use of medications Encounter for long-term (current) use of other medications Meredith-Danlos disease Meredith-Danlos syndrome Bilateral kidney stones documented in this encounter Care Teams Crimping Machine Operator Relationship Specialty Start Date End Date Isaiah Quiros MD [address] [place] [address] PCP - General Internal Medicine 04/01/17 06/02/20 Isaiah Quiros MD [address] [place] [address] Internal Medicine 02/18/17 03/19/21 Cash Heath III, MD [address] [facility] [address] [address] Rheumatology 04/12/17 Alex Mahajan MD [address] [facility] [address] [place] [address] Referring Physician Internal Medicine 05/07/19 1 documented as of this encounter
--- OUTSIDE RECORDS SUMMARY | 2024-04-29 20:17 | XMS_ITS | Encounter Summary ---
Author Organization [facility] Address [address] [place] [address] Phone Care Team Providers Care Classifying Machine Operator Name Role Phone Isaiah Quiros MD Unavailable Kumar CARRILLO MD, Cash Howard Unavailable [phone] Alex Mahajan MD Unavailable [phone] Bhupinder Tobias MD Unavailable Bhupinder Tobias MD Primary Care Provider [phone] Jorge Aguiar MD Unavailable [phone] Encounter Details Date Type Department Care Team (Late st Contact Info) Description 03/15/2021 Orders Only [facility] [address] [place] [address] Miriam Frye PA [address] [place] [address] Abdominal pain (Primary Dx); Elevated lipase Social History Tobacco Use Types Packs/Day Years Used Date Smoking Tobacco: Never Alcohol Use Standard Drinks/Week Comments No 0 (1 standard drink = 0.6 oz pur e alcohol) Comments No Sex and Gender Information Value Date Recorded Sex Assigned at Not on file Legal Sex Female 9:24 PM BUSINESS SERVICES ASSOCIATE Gender Identity Female 08/14/2022 11:32 AM [...] need to change imuran to something else. NESS SERVICES ASSOCIATE documented in this encounter Plan of Treatment Scheduled Orders Name Type Priority Associated Diagnoses Orde r Schedule Amylase Lab Routine Abdominal pain Elevated lipase Expected: 03/15/2021, Expires: 03/15/2022 Lipase Lab Routine Abdominal pain Elevated lipase Expected: 03/15/2021, Expires: 03/15/2022 documented as of this encounter Procedures Procedure Name Priority Date/Time Associated Diagnosis Comments CBC WITH AUTO DIFFERENTIAL Routine 03/15/2021 2:39 PM BUSINESS SERVICES ASSOCIATE Abdominal pain Elevated lipase ERYTHROCYTE SEDIMENTATION RATE Routine 03/15/2021 2:39 PM BUSINESS SERVICES ASSOCIATE Abdominal pain Elevated lipase CRP (ACUTE PHASE) Routine 03/15/2021 2:3 9 PM BUSINESS SERVICES ASSOCIATE Abdominal pain Elevated lipase LIPASE Routine 03/15/2021 2:39 PM BUSINESS SERVICES ASSOCIATE AMYLASE Routine 03/15/2021 2:39 PM BUSINESS SERVICES ASSOCIATE COMPREHENSIVE METABOLIC PANEL Routine 03/15/2021 2:39 PM BUSINESS SERVICES ASSOCIATE Abdominal pain Elevated lipase documented in this encounter Results * (ABNORMAL) Lipase (03/15/2021 2:39 PM BUSINESS SERVICES ASSOCIATE) LIPASE 65(H) 7 - 60 U/L [facility] 03/15/2021 2:39 PM BUSINESS SERVICES ASSOCIATE 03/15/2021 2:40 PM BUSINESS SERVICES ASSOCIATE Miriam VALLE LAB BLOOD ORDERAB LES Final Result Performing Organization Address [facility] Co de Phone Number [facility] [address] [place] [address] * Amylase (03/15/2021 2:39 PM BUSINESS SERVICES ASSOCIATE) Pathologist [facility] Amylase 64 21 - 101 U/L [facility] 03/15/2021 2:39 PM BUSINESS SERVICES ASSOCIATE 03/15/2021 2:40 PM BUSINESS SERVICES ASSOCIATE Miriam VALLE LAB BLOOD ORDERAB LES Final Result Performing Organization Address [facility] Phone Number [facility] [address] [place] [address] * Erythrocyte sedimentation rate (03/15/2021 2:39 PM BUSINESS SERVICES ASSOCIATE) [facility] Erythrocyte sedimentation rate TNP mm/h [facility] Comment: TEST NOT PERFORMED Quantity not sufficient. Blood specimen (specimen) 03/15/2021 2:39 PM BUSINESS SERVICES ASSOCIATE 03/15/2021 2:40 PM BUSINESS SERVICES ASSOCIATE Miriam VALLE LAB BLOOD ORDERAB LES Final Result Performing Organization Address [facility] de Phone Number [facility] [address] [place] [address] * (ABNORMAL) CRP (acute phase) (03/15/2021 2:39 PM BUSINESS SERVICES ASSOCIATE) Pathologist [facility] C-RP 13.0(H) <8.0 mg/L [facility] Blood specimen (specimen) 03/15/2021 2:39 PM BUSINESS SERVICES ASSOCIATE 03/15/2021 2:40 PM BUSINESS SERVICES ASSOCIATE Miriam VALLE LAB BLOOD ORDERAB LES Final Result [facility] [address] [address] [address] * Comprehensive metabolic panel (03/15/2021 2:39 PM BUSINESS SERVICES ASSOCIATE) Glucose 83 65 - 99 mg/dL [facility] Comment: ? Fasting reference interval BUN 17 7 - 25 mg/dL [facility] Creatinine 0.93 0.50 - 1.10 mg/dL [facility] eGFR NON-AFR. BURUNDIAN 74 > OR = 60 mL/min/1. 73m2 [facility] EGFR 85 > OR = 60 mL/min/1. 73m2 [facility] BUN/creat ratio NOT APPLICABLE 6 - 22 (calc) [facility] Sodium 137 135 - 146 mmol/L [facility] Potassium, pl 4.9 3.5 - 5.3 mmol/L [facility] Chloride 105 98 - 110 mmol/L [facility] CO2 21 20 - 32 mmol/L [facility] Calcium 8.9 8.6 - 10.2 mg/dL [facility] Protein, sr 6.6 6.1 - 8.1 g/dL [facility] Albumin 4.0 3.6 - 5.1 g/dL [facility] GLOBULIN 2.6 1.9 - 3.7 g/dL (calc) [facility] Alb/glob ratio 1.5 1.0 - 2.5 (calc) [facility] Bilirubin, total 0.6 0.2 - 1.2 mg/dL [facility] Alk phos 78 31 - 125 U/L [facility] AST 25 10 - 35 U/L [facility] ALT (SGPT) 25 6 - 29 U/L [facility] Blood specimen (specimen) 03/15/2021 2:39 PM BUSINESS SERVICES ASSOCIATE 03/15/2021 2:40 PM BUSINESS SERVICES ASSOCIATE us Miriam VALLE LAB BLOOD ORDERAB LES Final Result [facility] [address] [place] [address] * CBC with auto differential (03/15/2021 2:39 PM BUSINESS SERVICES ASSOCIATE) [facility] WBC 9.7 3.8 - 10.8 Thousand/u L [...] nexa Blood specimen (specimen) 03/15/2021 2:39 PM BUSINESS SERVICES ASSOCIATE 03/15/2021 2:40 PM BUSINESS SERVICES ASSOCIATE Miriam VALLE LAB BLOOD ORDERAB LES Final Result [facility] [address] [place] [address] documented in this encounter Visit Diagnoses Diagnosis Abdominal pain- Primary Abdominal pain, unspecified site Elevated lipase documented in this encounter Care Teams Classifying Machine Operator Relationship Specialty Start Date End Date Bhupinder Tobias MD [address] [place] [address] PCP - General Internal Medicine 06/03/20 Iasiah Quiros MD [address] [facility] [address] [place] [address] Internal Medicine 02/18/17 03/19/21 Cash Heath III, MD [address] [place] [address] Rheumatology 04/12/17 Alex Mahajan MD [address] [place] [address] Referring Physician Internal Medicine 05/07/19 1 Bhupinder Tobias MD [address] [place] [address] Referring Physician Internal Medicine 06/03/20 1 Jorge Aguiar MD [address] [place] [address] Consulting Physician Urology 11/10/20 documented as of this encounter
--- OUTSIDE RECORDS SUMMARY | 2024-04-29 20:17 | XMS_ITS | Encounter Summary ---
Author Organization [facility] Address [address] [place] [address] Phone Care Team Providers Care Quality Control Representative Name Role Phone Isaiah Quiros MD Unavailable Kumar CARRILLO MD, Cash Howard Unavailable [phone] Alex Mahajan MD Unavailable [phone] Bhupinder Tobias MD Unavailable [phone] Bhupinder Tobias MD Primary Care Provider [phone] Jorge Aguiar MD Unavailable [phone] Encounter Details Date Type Department Care Team (Late st Contact Info) Description 11/24/2020 Orders Only [facility] [address] [place] [address] Cash Heath III, MD [address] [facility] [address] [place] [address] Psoriatic arthritis (CMS/HCC) ([facility]) (Primary Dx) Social History Tobacco Use Types Packs/Day Years Used Date Smoking Tobacco: Never Alcohol Use Standard Drinks/Week Comments No 0 (1 standard drink = 0.6 oz pur e alcohol) Comments No Sex and Gender Information Value Date Recorded Sex Assigned at Not on file Legal Sex Female 9:24 PM BOAT WORKER Gender Identity Female 08/14/2022 11:32 AM [...] 11/24/2020 documented in this encounter Care Teams Quality Control Representative Relationship Specialty Start Date End Date Bhupinder Tobias MD [address] [place] [address] PCP - General Internal Medicine 06/03/20 Isaiah Quiros MD [address] [facility] 1 [place] [address] Internal Medicine 02/18/17 03/19/21 Cash Heath III, MD [address] [place] [address] Rheumatology 04/12/17 Alex Mahajan MD [address] [place] [address] Referring Physician Internal Medicine 05/07/19 1 Bhupinder Tobias MD [address] [place] [address] Referring Physician Internal Medicine 06/03/20 1 Jorge Aguiar MD [address] [place] [address] Consulting Physician Urology 11/10/20 documented as of this encounter
--- OUTSIDE RECORDS SUMMARY | 2024-04-29 20:18 | XMS_ITS | Encounter Summary ---
Author Organization [facility] Healthcare Address [address] [place] [address] Care Team Providers Care Softball Core Molder Name Role Phone Isaiah Quiros MD Unavailable Isaiah Quiros MD Primary Care Provider [phone] Kumar CARRILLO MD, Cash Howard Unavailable [phone] Encounter Details Date Type Department Care Team (Late st Contact Info) Description 12/24/2018 12:01 AM CDT Hospital Encounter [facility]IM Curtis Oseguera MD [address] [facility] [address] [address] Social History Tobacco Use Types Packs/Day Years Used Date Smoking Tobacco: Never Alcohol Use Standard Drinks/Week Comments No 0 (1 standard drink = 0.6 oz pur e alcohol) Comments No Sex and Gender Information Value Date Recorded Sex Assigned at Not on file Legal Sex Female 9:24 PM MEDICATION RECONCILIATION TECHNICIAN Gender Identity Female 08/14/2022 11:32 AM [...] on filedocumented in this encounter Care Teams Softball Core Molder Relationship Specialty Start Date End Date Isaiah Quiros MD [address] [place] [address] PCP - General Internal Medicine 04/01/17 06/02/20 Isaiah Quiros MD [address] [place] [address] Internal Medicine 02/18/17 03/19/21 Cash Heath III, MD [address] [address] Rheumatology 04/12/17 documented as of this encounter
--- OUTSIDE RECORDS SUMMARY | 2024-04-29 20:18 | XMS_ITS | Encounter Summary ---
Author Organization [facility] Care Team Providers Care Drafter Electronic Name Role Phone Isaiah Quiros MD Unavailable Isaiah Quiros MD Primary Care Provider [phone] Kumar CARRILLO MD, Cash Howard Unavailable [phone] Encounter Details Date Type Department Care Team (Latest Contact Info) Description 11/24/2018 Travel Social History Tobacco Use Types Packs/Day Years Used Date Smoking Tobacco: Never Alcohol Use Standard Drinks/Week Comments No 0 (1 standard drink = 0.6 oz pur e alcohol) Comments No Sex and Gender Information Value Date Recorded Sex Assigned at Not on file Legal Sex Female 9:24 PM EMPLOYEE COMMUNICATIONS MANAGER Gender Identity Female 08/14/2022 11:32 AM CDT Sexual Orientation Straight 02/13/2023 7: 01 AM CDT documented as of this encounter Plan of Treatment Not on file documented as of this encounter Visit Diagnoses Not on filedocumented in this encounter Care Teams Drafter Electronic Relationship Specialty Start Date End Date Isaiah Quiros MD [address] [place] [address] PCP - General Internal Medicine 04/01/17 06/02/20 Isaiah Quiros MD [address] [place] [address] Internal Medicine 02/18/17 03/19/21 Cash Heath III, MD [address] [address] Rheumatology 04/12/17 documented as of this encounter
--- OUTSIDE RECORDS SUMMARY | 2024-04-29 20:18 | XMS_ITS | Encounter Summary ---
Author Organization [facility] Address [address] [place] [address] Phone Care Team Providers Care Tape Duplicator Name Role Phone Isaiah Quiros MD Unavailable Isaiah Quiros MD Primary Care Provider [phone] Kumar CARRILLO MD, Cash Howard Unavailable [phone] Alex Mahajan MD Unavailable [phone] Encounter Details Date Type Department Care Team (Late st Contact Info) Description 01/18/2020 Telephone [facility] [address] [place] [address] Tiara Rainey Social History Tobacco Use Types Packs/Day Years Used Date Smoking Tobacco: Never Alcohol Use Standard Drinks/Week Comments No 0 (1 standard drink = 0.6 oz pur e alcohol) Comments No Sex and Gender Information Value Date Recorded Sex Assigned at Not on file Legal Sex Female 9:24 PM BRICKMASON HELPER Gender Identity Female 08/14/2022 11:32 AM [...] on filedocumented in this encounter Care Teams Tape Duplicator Relationship Specialty Start Date End Date Isaiah Quiros MD [address] [place], [place] [id number] PCP - General Internal Medicine 04/01/17 06/02/20 Isaiah Quiros MD [address] [place] [address] Internal Medicine 02/18/17 03/19/21 Cash Heath III, MD [address] [place] [address] Rheumatology 04/12/17 Alex Mahajan MD [address] [place] [address] Referring Physician Internal Medicine 05/07/19 1 documented as of this encounter
--- OUTSIDE RECORDS SUMMARY | 2024-04-29 20:18 | XMS_ITS | Encounter Summary ---
Author Organization [facility] Address [address] [place] [address] Phone Care Team Providers Care Quality Control Supervisor Name Role Phone Isaiah Quiros MD Unavailable Isaiah Quiros MD Primary Care Provider [phone] Kumar CARRILLO MD, Cash Howard Unavailable [phone] Alex Mahajan MD Unavailable [phone] Encounter Details Date Type Department Care Team (Late st Contact Info) Description 10/19/2019 Telephone [facility] [address] [place] [address] Miriam Frye PA [address] [place] [address] Social History Tobacco Use Types Packs/Day Years Used Date Smoking Tobacco: Never Alcohol Use Standard Drinks/Week Comments No 0 (1 standard drink = 0.6 oz pur e alcohol) Comments No Sex and Gender Information Value Date Recorded Sex Assigned at Not on file Legal Sex Female 9:24 PM CORPORATE COMMUNICATIONS INTERN Gender Identity Female 08/14/2022 11:32 AM CDT [...] documented as of this encounter Care Teams Quality Control Supervisor Relationship Specialty Start Date End Date Isaiah Quiros MD [address] [place] [address] PCP - General Internal Medicine 04/01/17 06/02/20 Isaiah Quiros MD [address] [place] [address] Internal Medicine 02/18/17 03/19/21 Cash Heath III, MD [address] [place] [address] Rheumatology 04/12/17 Alex Mahajan MD [address] [place] [address] Referring Physician Internal Medicine 05/07/19 1 documented as of this encounter
--- OUTSIDE RECORDS SUMMARY | 2024-04-29 20:18 | XMS_ITS | Encounter Summary ---
Author Organization [facility] log[facility] Address [address] [place] [phone] Phone Care Team Providers Care Production Engineer Name Role Phone Isaiah Quiros MD Unavailable Isaiah Quiros MD Primary Care Provider [phone] Kumar CARRILLO MD, Sadie Howard Unavailable [phone] Alex Mahajan MD Unavailable [phone] Reason for Referral * Diagnostic Imaging (Routine) - Closed Specialty Diagnoses / Procedures Referred By Kaylynn phillips Referred To Contact Diagnoses Chronic pain of both knees Procedures XR Knee Left 3 Views Miriam García PA [address] [place] [address] Phone: tel: fax: External Order Referral ID Status Reason Start Date Expiration Date Visits Re quested Visits Authorized [id number] Closed 01/07/2020 02/05/2021 1 1 * Diagnostic Imaging (Routine) - Closed Specialty Diagnoses / Procedures Referred By Kaylynn phillips Referred To Contact Diagnoses Chronic pain of both knees Procedures XR Knee Right 3 Views Miriam García PA [address] [place] [address] Phone: tel: fax: External Order Referral ID Status Reason Start Date Expiration Date Visits Re quested Visits Authorized [id number] Closed 01/07/2020 02/05/2021 1 1 * Diagnostic Imaging (Routine) - Closed Specialty Diagnoses / Procedures Referred By Contac t Referred To Contact Diagnoses Dorsalgia Hip pain Procedures XR Hip Right 2 or 3 Views Miriam García PA [address] [place] [address] Phone: tel: fax: External Order Referral ID Status Reason Start Date Expiration Date Visits Re quested Visits Authorized [id number] Closed 01/07/2020 02/05/2021 1 1 * Diagnostic Imaging (Routine) - Closed Specialty Diagnoses / Procedures Referred By Contac t Referred To Contact Diagnoses Dorsalgia Hip pain Procedures XR Hip Left 2 or 3 Views Miriam García PA [address] [place] [address] Phone: tel: fax: External Order Referral ID Status Reason Start Date Expiration Date Visits Re quested Visits Authorized [id number] Closed 01/07/2020 02/05/2021 1 1 * Diagnostic Imaging (Routine) - Closed Specialty Diagnoses / Procedures Referred By Contac t Referred To Contact Diagnoses Dorsalgia Procedures XR Spine Lumbar 2 or 3 Views Miriam García PA [address] [place] [address] Phone: tel: fax: External Order Referral ID Status Reason Start Date Expiration Date Visits Re quested Visits Authorized [id number] Closed 01/07/2020 02/05/2021 1 1 * Diagnostic Imaging (Routine) - Closed Specialty Diagnoses / Procedures Referred By Contac t Referred To Contact Diagnoses Chronic pain of both ankles Procedures XR Ankle Left 2 Views Miriam García PA [address] [place] [address] Phone: tel: fax: External Order Referral ID Status Reason Start Date Expiration Date Visits Re quested Visits Authorized [id number] Closed 01/07/2020 02/05/2021 1 1 * Diagnostic Imaging (Routine) - Closed Specialty Diagnoses / Procedures Referred By Kaylynn t Referred To Contact Diagnoses Chronic pain of both ankles Procedures XR Ankle Right 2 Views Miriam García PA [address] [place] [address] Phone: tel: fax: External Order Referral ID Status Reason Start Date Expiration Date Visits Re quested Visits Authorized [id number] Closed 01/07/2020 02/05/2021 1 1 * Diagnostic Imaging (Routine) - Closed Specialty Diagnoses / Procedures Referred By Contac t Referred To Contact Diagnoses Dorsalgia Hip pain Procedures XR Sacroiliac Joints 3 or More Views Miriam García PA [address] [place] [address] Phone: tel: fax: External Order Referral ID Status Reason Start Date Expiration Date Visits Re quested Visits Authorized [id number] Closed 01/07/2020 02/05/2021 1 1 Encounter Details Date Type Department Care Team (Late st Contact Info) Description 01/07/2020 3:15 PM CDT Office Visit [facility] [address] [place] [phone] Miriam García PA [address] [place] [address] Rheumatoid arthritis of multiple sites without rheumatoid [...] file Legal Sex Female 9:24 PM BUSINESS ANALYST Gender Identity Female 08/14/2022 11:32 AM CDT Sexual Orientation Straight 02/13/2023 7: 01 AM CDT documented as of this encounter Patient Instructions * Patient Instructions* Miriam García PA - 01/07/2020 3:15 PM CDT Patient Education Triamcinolone (By injection) Triamcinolone (jbns-js-ZGE-oh-lone) Treats many diseases and conditions, especially problems [...] pharmacist before using any other medicine, including izcb-bjn-badejkx medicines, vitamins, and herbal products. ?? There [...] may report side effects to FDA at 6-513-XDN-7383 ?? 2017 [employer] Information is for End User's use only and may not be sold, redistributed or otherwise used for commercial purposes. The above information is an educational resource center teacher only. It is not intended as [...] arthritis of multiple sites without rheumatoid factor ([facility]) (Primary) Assessment & Plan: High cdai. Due to burden of dz will give her 100mg of triamcinolone IM today, discussed risks and se of systemic steroids, she is to watch carbs in t(denies hx of dm2) and take ca + vit d 1200mg po every day. [facility] panel 08/2019---labs reveal positive anti-PRINCIPAL QUALITY ENGINEER antibody which is likely a false positive due tonegative ASHLEY. ??Otherwise labs look good. ??No evidence of a new autoimmune connective tissue disease. Cont orencia sq and imuran 100mg po qhs. [place] better on iv orencia, will change from [...] showed osteoporosis [facility] 08/2019---[facility] labs reveal positive anti-PRINCIPAL QUALITY ENGINEER antibody which is likely a false [...] every day. [facility] panel 08/2019---labs reveal positive anti-PRINCIPAL QUALITY ENGINEER antibody which is likely a false positive due tonegative ASHLEY. ??Otherwise labs look good. ??No evidence of a new autoimmune connective tissue disease. Cont orencia sq and imuran 100mg po qhs. [place] better on iv orencia, will change from [...] showed osteoporosis [facility] 08/2019---[facility]ise labs reveal positive anti-PRINCIPAL QUALITY ENGINEER antibody which is likely a false [...] arthritis of multiple sites without rheumatoid factor ([facility]) Encounter for long-term (current) use of medications CBC WITH AUTO DIFFERENTIAL Routine 01/07/2020 4:18 PM CDT Rheumatoid arthritis of multiple sites without rheumatoid factor (CMS/[facility]) Encounter for long-term (current) use of medications HLA-B27 ANTIGEN Routine 01/07/2020 4:18 PM CDT ERYTHROCYTE SEDIMENTATION RATE Routine 01/07/2020 4:18 PM CDT Rheumatoid arthritis of multiple sites without rheumatoid factor (CMS/[facility]) Encounter for long-term (current) use of medications [...] HLA-B27 ag NEGATIVE NEGATIVE [facility], 01/07/2020 4:18 PM CDT 01/07/2020 4:19 PM CDT Miriam VALLE LAB BLOOD ORDERAB LES Final Result [facility], [address] [place] [address] * TB test, quantiferon gold (01/07/2020 4:18 [...] T-lymphocytes. For additional information, please refer to https://education.TRA/faq/WCC839 (This link is being provided for informational/ educational purposes only.) Blood specimen (specimen) 01/07/2020 4:18 PM CDT 01/07/2020 4:19 PM CDT Miriam VALLE LAB BLOOD ORDERAB LES Final Result Performing Organization Address [facility] Co de Phone Number [facility] [address] [place] [address] * Erythrocyte sedimentation rate (01/07/2020 4:18 PM CDT) Erythrocyte sedimentation rate 14 < OR = 20 mm/h [facility] [facility] Blood specimen (specimen) 01/07/2020 4:18 PM CDT 01/07/2020 4:19 PM CDT Miriam VALLE LAB BLOOD ORDERAB LES Final Result Performing Organization Address [facility] de Phone Number [facility] [address] [place] [address] * (ABNORMAL) CRP (acute phase) (01/07/2020 4:18 PM CDT) C-RP 10.7(H) <8.0 mg/L [facility] Blood specimen (specimen) 01/07/2020 4:18 PM CDT 01/07/2020 4:19 PM CDT Miriam VALLE LAB BLOOD ORDERAB LES Final Result Performing Organization Address [facility] Co de Phone Number [facility] [address] [place] [address] * (ABNORMAL) Comprehensive metabolic panel (01/07/2020 4:18 PM CDT) Glucose 100(H) 65 - 99 mg/dL [facility] Comment: ? Fasting reference interval For someone without known diabetes, a glucose value between 100 and 125 mg/dL is consistent with prediabetes and should be confirmed with a follow-up test. BUN 15 7 - 25 mg/dL [facility] Creatinine 1.04 0.50 - 1.10 mg/dL [facility] eGFR NON-AFR. FIJIAN 65 > OR = 60 mL/min/1. 73m2 [facility] EGFR 75 > OR = 60 mL/min/1. 73m2 [facility] BUN/creat ratio NOT APPLICABLE 6 - 22 (calc) [facility] Sodium 138 135 - 146 mmol/L [facility] Potassium, pl 4.4 3.5 - 5.3 mmol/L [facility] Chloride 106 98 - 110 mmol/L [facility] CO2 19(L) 20 - 32 mmol/L [facility] Calcium 8.8 8.6 - 10.2 mg/dL [facility] Protein, sr 6.5 6.1 - 8.1 g/dL [facility] Albumin 4.1 3.6 - 5.1 g/dL [facility] GLOBULIN 2.4 1.9 - 3.7 g/dL (calc) [facility] Alb/glob ratio 1.7 1.0 - 2.5 (calc) [facility] Bilirubin, total 0.3 0.2 - 1.2 mg/dL [facility] Alk phos 70 31 - 125 U/L [facility] AST 13 10 - 35 U/L [facility] ALT (SGPT) 17 6 - 29 U/L [facility] Blood specimen (specimen) 01/07/2020 4:18 PM CDT 01/07/2020 4:19 PM CDT us Miriam VALLE LAB BLOOD ORDERAB LES Final Result [facility] [address] [place] [phone] * CBC with auto differential (01/07/2020 4:18 [...] LAB BLOOD ORDERAB LES Final Result [facility] [address] [place] [phone] documented in this encounter Visit Diagnoses Diagnosis [...] sites without rheumatoid factor (CMS/HCC) ([facility]) Given 01/07/2020 4:16 PM CDT 100 mg Other (Comment) documented in this encounter Discontinued Medications Medication Sig Discontinue Reason Start Date End Da te abatacept (ORENCIA) 250 mg injection Duplicate order 01/18/2020 documented as of this encounter Care Teams Production Engineer Relationship Specialty Start Date End Date Isaiah Quiros MD [address] [place] [address] PCP - General Internal Medicine 04/01/17 06/02/20 Isaiah Quiros MD [address] [place] [address] Internal Medicine 02/18/17 03/19/21 Sadie Heath III, MD [address] [place] [address] Rheumatology 04/12/17 Alex Mahajan MD [address] [place] [address] Referring Physician Internal Medicine 05/07/19 1 documented as of this encounter
--- OUTSIDE RECORDS SUMMARY | 2024-04-29 20:18 | XMS_ITS | Encounter Summary ---
Author Organization [facility] Address [address] [place] [address] Phone Care Team Providers Care Insurance Coder Name Role Phone Isaiah Quiros MD Unavailable Isaiah Quiros MD Primary Care Provider [phone] Kumar CARRILLO MD, Cash Howard Unavailable [phone] Alex Mahajan MD Unavailable [phone] Reason for Visit * Reason Comments Rheumatoid Arthritis Encounter Details Date Type Department Care Team (Late st Contact Info) Description 12/23/2019 2:00 PM CDT Office Visit [facility] [address] [place] [address] Elena Kumari PA [address] [place] [address] Rheumatoid arthritis of multiple sites [...] on file Legal Sex Female 9:24 PM ETL DATABASE DEVELOPER Gender Identity Female 08/14/2022 11:32 AM [...] since resolved. [facility] panel 08/2019---labs reveal positive anti-HOUSEKEEPING CLEANER antibody which is likely a false positive [...] showed osteoporosis [facility] 08/2019---[facility] labs reveal positive anti-HOUSEKEEPING CLEANER antibody which is likely a false positive [...] showed osteoporosis [facility] 08/2019---[facility] labs reveal positive anti-HOUSEKEEPING CLEANER antibody which is likely a false positive [...] since resolved. [facility] panel 08/2019---labs reveal positive anti-HOUSEKEEPING CLEANER antibody which is likely a false positive [...] arthritis of multiple sites without rheumatoid factor ([facility]) (HCC)- Primary Osteoporosis without current pathological fracture [...] documented as of this encounter Care Teams Insurance Coder Relationship Specialty Start Date End Date Isaiah Quiros MD [address] [place] [address] PCP - General Internal Medicine 04/01/17 06/02/20 Isaiah Quiros MD [address] [place] [address] Internal Medicine 02/18/17 03/19/21 Cash Heath III, MD [address] [place] [address] Rheumatology 04/12/17 Alex Mahajan MD [address] [place] [address] Referring Physician Internal Medicine 05/07/19 1 documented as of this encounter
--- OUTSIDE RECORDS SUMMARY | 2024-04-29 20:18 | XMS_ITS | Encounter Summary ---
Author Organization [facility] Address [address] [place] [address] Phone Care Team Providers Care Power Press Tender Name Role Phone Isaiah Quiros MD Unavailable Isaiah Quiros MD Primary Care Provider [phone] Kumar CARRILLO MD, John J. Unavailable [phone] Reason for Visit * Reason Comments Rheumatoid Arthritis Encounter Details Date Type Department Care Team (Late st Contact Info) Description 04/23/2019 1:15 PM CATERPILLAR DRIVER Office Visit [facility] [address] [place] [address] Miriam Frye PA [address] [place] [address] Rheumatoid arthritis of multiple sites without rheumatoid factor (CMS/[facility]) (Primary Dx); Osteoporosis without current pathological fracture, [...] on file Legal Sex Female 9:24 PM CATERPILLAR DRIVER Gender Identity Female 08/14/2022 11:32 AM CDT Sexual Orientation Straight 02/13/2023 7: 01 AM CDT documented as of this encounter Last Filed Vital Signs Vital Sign Reading Time Taken Comments Blood Pressure 104/68 04/23/2019 1:09 PM CATERPILLAR DRIVER Pulse 129 04/23/2019 1:09 PM CATERPILLAR DRIVER Temperature - - Respiratory Rate - - Oxygen Saturation - - Inhaled Oxygen Concentration - - Weight 98 kg (216 lb) 04/23/2019 1:09 PM CATERPILLAR DRIVER Height 167.6 cm (5' 6 ) 04/23/2019 1:09 PM CATERPILLAR DRIVER Body Mass Index 34.86 04/23/2019 1:09 PM CATERPILLAR DRIVER documented in this encounter Ordered Prescriptions Prescription [...] arthritis of multiple sites without rheumatoid factor ([facility]) (Primary) Assessment & Plan: High cdai. On [...] Heath III, MD at 04/23/2019 4:49 PM CATERPILLAR DRIVER RPILLAR DRIVER RPILLAR DRIVER * Miriam Frye PA - 04/23/2019 1:15 PM CST Platelets elevated, could be due to inflammation, inflammatory markers are up but should also get opinion from heme. Needs referral to heme from pcp. Send pcp copies of labs. RPILLAR DRIVER * Miriam Frye PA - 04/23/2019 1:15 PM CST Also mild anemia, make sure she is utd with colo. Check anemia panel. RPILLAR DRIVER documented in this encounter Miscellaneous Notes * Assessment & Plan Note - Miriam Frye PA - 04/23/2019 1:46 PM CSTAssociated Problem(s): Frequent infections Check serum immunoglobulins. RPILLAR DRIVER * Assessment & Plan Note - Miriam Frye PA - 04/20/2019 4:57 PM CSTAssociated Problem(s): Meredith-Danlos disease Advised to get chest CT to r/o aortic aneurysm, to discuss with pcp. RPILLAR DRIVER * Assessment & Plan Note - [...] pcp 2018 and it showed osteoporosis ?? RPILLAR DRIVER RPILLAR DRIVER * Assessment & Plan Note - Miriam Frye PA - 04/20/2019 4:56 PM CSTAssociated Problem(s): Osteoporosis without current pathological fracture bds checked by pcp in past, is taking ca and vit d and pcp checked vit D and PTH per pt was wnl. Her pcp started her on alendronate 70mg po qweek. Taking ca + vit d 1200mg qd. RPILLAR DRIVER * Assessment & Plan Note - [...] psoriatic arthritis. Labs stable 08/01/18.TPMT wnl. ?? RPILLAR DRIVER RPILLAR DRIVER RPILLAR DRIVER RPILLAR DRIVER documented in this encounter Plan of Treatment Scheduled Orders Name Type Priority Associated Diagnoses Orde r Schedule Immunoglobulins A/E/G/M, Serum Lab Routine Frequent infections Expected: 04/23/2019, Expires: 04/23/2020 documented as of this encounter Procedures Procedure Name Priority Date/Time Associated Diagnosis Comments IMMUNOGLOBULINS A/E/G/M, SERUM Routine 04/23/2019 1:43 PM CATERPILLAR DRIVER CBC WITH AUTO DIFFERENTIAL Routine 04/23/2019 1:43 PM CATERPILLAR DRIVER Rheumatoid arthritis of multiple sites without rheumatoid factor (CMS/HCC) Encounter for long-term (current) use of medications ERYTHROCYTE SEDIMENTATION RATE Routine 04/23/2019 1:43 PM CATERPILLAR DRIVER Rheumatoid arthritis of multiple sites without rheumatoid factor (CMS/HCC) Encounter for long-term (current) use of medications CRP (ACUTE PHASE) Routine 04/23/2019 1:4 3 PM CATERPILLAR DRIVER Rheumatoid arthritis of multiple sites without rheumatoid factor (CMS/HCC) Encounter for long-term (current) use of medications COMPREHENSIVE METABOLIC PANEL Routine 04/23/2019 1:43 PM CATERPILLAR DRIVER Rheumatoid arthritis of multiple sites without rheumatoid factor (CMS/HCC) Encounter for long-term (current) use of medications documented in this encounter Results * Immunoglobulins A/E/G/M, Serum (04/23/2019 1:43 PM CATERPILLAR DRIVER) Immunoglobulin A 228 47 - 310 mg/dL [facility] [place] Immunoglobulin E 41 <AT=487 kU/L [facility] [place] Immunoglobulin G 1,064 600 - 1,640 mg/dL [facility] [place] Immunoglobulin M 125 50 - 300 mg/dL [facility] [place] 04/23/2019 1:43 PM CATERPILLAR DRIVER 04/23/2019 1:44 PM CATERPILLAR DRIVER Narrative Resulting Agency Comment Performing Organization Information: ?Site ID: WILLAM ?Name: [facility] [facility] ?Address: [place] [address] ?Director: Curtis Noe D.O., MPH Miriam VALLE LAB BLOOD ORDERAB LES Final Result [facility] [place] * Erythrocyte sedimentation rate (04/23/2019 1:43 PM CATERPILLAR DRIVER) Erythrocyte sedimentation rate 11 < OR = 20 mm/h [facility] [place] Blood specimen (specimen) 04/23/2019 1:43 PM CATERPILLAR DRIVER 04/23/2019 1:44 PM CATERPILLAR DRIVER Narrative Resulting Agency Comment Performing Organization Information: ?Site ID: [facility] ?Name: [facility] ?Address: [place] [phone] ?Director: Curtis Noe D.O., MPH Miriam VALLE LAB BLOOD ORDERAB LES Final Result [facility] [place] * (ABNORMAL) CRP (acute phase) (04/23/2019 1:43 PM CATERPILLAR DRIVER) C-RP 9.8(H) <8.0 mg/L [facility] [place] Blood specimen (specimen) 04/23/2019 1:43 PM CATERPILLAR DRIVER 04/23/2019 1:44 PM CATERPILLAR DRIVER Narrative Resulting Agency Comment Performing Organization Information: ?Site ID: [place] ?Name: [facility] ?Address: [address] [place] [address] [place] [phone] ?Director: Curtis Noe D.O., MPH Miriam VALLE LAB BLOOD ORDERAB LES Final Result Performing Organization Address [facility] Co de Phone Number [facility] [place] * Comprehensive metabolic panel (04/23/2019 1:43 PM CATERPILLAR DRIVER) Pathologist [facility] Glucose 84 65 - 99 mg/dL [facility] [place] Comment: ? Fasting reference interval BUN 16 7 - 25 mg/dL [facility] [place] Creatinine 0.92 0.50 - 1.10 mg/dL [facility] [place] eGFR NON-AFR. SURINAMESE 76 > OR = 60 mL/min/1. 73m2 [...] [place] Blood specimen (specimen) 04/23/2019 1:43 PM CATERPILLAR DRIVER 04/23/2019 1:44 PM CATERPILLAR DRIVER Narrative Resulting Agency Comment Performing Organization Information: ?Site ID: [place] ?Name: [facility] ?Address: [address] [place] [address] [place] [address] ?Director: Curtis Noe D.O., MPH us Miriam VALLE LAB BLOOD ORDERAB LES Final Result [facility] [place] * (ABNORMAL) CBC with auto differential (04/23/2019 1:43 PM CATERPILLAR DRIVER) WBC 7.7 3.8 - 10.8 Thousand/u L [...] [place] Blood specimen (specimen) 04/23/2019 1:43 PM CATERPILLAR DRIVER 04/23/2019 1:44 PM CATERPILLAR DRIVER Narrative Resulting Agency Comment Performing Organization Information: ?Site ID: [facility] ?Name: [facility] ?Address: [address] [place], [place] [address] [address] ?Director: Curtis Noe D.O., MPH us Miriam [...] documented as of this encounter Care Teams Power Press Tender Relationship Specialty Start Date End Date Isaiah Quiros MD [address] [place] [address] PCP - General Internal Medicine 04/01/17 06/02/20 Isaiah Quiros MD [address] [place] [address] Internal Medicine 02/18/17 03/19/21 Cash Heath III, MD [address] [facility] [address] [place] [address] Rheumatology 04/12/17 documented as of this encounter
--- OUTSIDE RECORDS SUMMARY | 2024-04-29 20:18 | XMS_ITS | Encounter Summary ---
Author Organization [facility] Address [address] [place] [address] Phone Care Team Providers Care Edging Machine Feeder Name Role Phone Isaiah Quiros MD Unavailable Isaiah Quiros MD Primary Care Provider [phone] Kumar CARRILLO MD, Cash Howard Unavailable [phone] Alex Mahajan MD Unavailable [phone] Encounter Details Date Type Department Care Team (Late st Contact Info) Description 07/09/2019 Telephone [facility] [address] [place] [address] Miriam Frye PA [address] [place] [address] Social History Tobacco Use Types Packs/Day Years Used Date Smoking Tobacco: Never Alcohol Use Standard Drinks/Week Comments No 0 (1 standard drink = 0.6 oz pur e alcohol) Comments No Sex and Gender Information Value Date Recorded Sex Assigned at Not on file Legal Sex Female 9:24 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
--- OUTSIDE RECORDS SUMMARY | 2024-04-29 20:18 | XMS_ITS | Encounter Summary ---
Author Organization [facility] Address [address] [place] [address] Phone Care Team Providers Care Greenhouse Manager Name Role Phone Isaiah Quiros MD Unavailable Isaiah Quiros MD Primary Care Provider Kumar CARRILLO MD, Cash Howard Unavailable [phone] Reason for Visit * Reason Onset Date Comments Tramadol Script 04/23/2019 Encounter Details Date Type Department Care Team (Late st Contact Info) Description 04/23/2019 Telephone [facility] [address] [place] [address] Miriam Frye PA [address] [place] [address] Tramadol Script Social History Tobacco [...] Maisha Avila RN - 04/23/2019 3:42 PM SALES ENGINEER ACCOUNT MANAGER Scheduled S ENGINEER ACCOUNT MANAGER * Addendum Note - Mick Can - 04/23/2019 3:38 PM CSTAddended by: MICK CAN on: 04/23/2019 03:38 PM Modules accepted: Orders S ENGINEER ACCOUNT MANAGER * Telephone Encounter - Mick Can - 04/23/2019 3:38 PM CST Script called & charted S ENGINEER ACCOUNT MANAGER * Telephone Encounter - Miriam Frye PA - 04/23/2019 1:34 PM CST Restart her orencia iv wesley please! Please call in tramadol 50mg tid prn no refills. S ENGINEER ACCOUNT MANAGER S ENGINEER ACCOUNT MANAGER documented in this encounter Plan of Treatment Not on file documented as of this encounter Visit Diagnoses Not on filedocumented in this encounter Care Teams Greenhouse Manager Relationship Specialty Start Date End Date Isaiah Quiros MD [address] [place] [address] PCP - General Internal Medicine 04/01/17 06/02/20 Isaiah Quiros MD [address] [place] [address] Internal Medicine 02/18/17 03/19/21 Cash Heath III, MD [address] [facility] [address] [place] [address] Rheumatology 04/12/17 documented as of this encounter
--- OUTSIDE RECORDS SUMMARY | 2024-04-29 20:18 | XMS_ITS | Encounter Summary ---
Author Organization [facility] Address [address] [place] [address] Phone Care Team Providers Care Insurance Healthcare Representative Name Role Phone Isaiah Quiros MD Unavailable Isaiah Quiros MD Primary Care Provider [phone] Kumar CARRILLO MD, Cash Howard Unavailable [phone] Encounter Details Date Type Department Care Team (Late st Contact Info) Description 04/27/2019 Orders Only [facility] [address] [place] [phone] Tiara Rainey Anemia, unspecified type (Primary Dx) Social History Tobacco Use Types Packs/Day Years Used Date Smoking Tobacco: Never Alcohol Use Standard Drinks/Week Comments No 0 (1 standard drink = 0.6 oz pur e alcohol) Comments No Sex and Gender Information Value Date Recorded Sex Assigned at Not on file Legal Sex Female 9:24 PM DOOR PATCHER Gender Identity Female 08/14/2022 11:32 AM CDT Sexual Orientation Straight 02/13/2023 7: 01 AM CDT documented as of this encounter Progress Notes * Miriam Frye PA - 04/27/2019 9:29 AM CST Needs to see heme and gi. Needs egd/colo. Pt appears to have an iron deficiency anemia. PATCHER documented in this encounter Plan of Treatment Not on file documented as of this encounter Procedures Procedure Name Priority Date/Time Associated Diagnosis Comments SOLUBLE TRANSFERRIN Routine 04/30/2019 4 :42 PM DOOR PATCHER Anemia, unspecified type IRON PROFILE W/ IBC Routine 04/30/2019 4 :42 PM DOOR PATCHER Anemia, unspecified type RETICULOCYTES Routine 04/30/2019 4:42 PM DOOR PATCHER Anemia, unspecified type FOLATE Routine 04/30/2019 4:42 PM DOOR PATCHER Anemia, unspecified type FERRITIN Routine 04/30/2019 4:42 PM DOOR PATCHER Anemia, unspecified type VITAMIN B12 Routine 04/30/2019 4:42 PM DOOR PATCHER Anemia, unspecified type documented in this encounter Results * (ABNORMAL) Soluble TRANSFERRIN (04/30/2019 4:42 PM DOOR PATCHER) Solubuls Transferrin Receptor 2.35(H) 0.76 - 1.76 mg/L [facility] Blood specimen (specimen) 04/30/2019 4:42 PM DOOR PATCHER 04/30/2019 4:43 PM DOOR PATCHER Narrative Resulting Agency Comment Performing Organization Information: ?Site ID: [facility] ?Name[facility] ?Address: [address] [place] [address] ?Director: Apolinar Simms M.D., Ph.D us Miriam VALLE LAB BLOOD ORDERAB LES Final Result [facility] - [place], [place] * (ABNORMAL) Ferritin (04/30/2019 4:42 PM DOOR PATCHER) Ferritin 5(L) 16 - 232 ng/mL [facility] [place] Blood specimen (specimen) 04/30/2019 4:42 PM DOOR PATCHER 04/30/2019 4:43 PM DOOR PATCHER Narrative Resulting Agency Comment Performing Organization Information: ?Site ID: [place] ?Name: [facility] ?Address: [facility] [place] [address] ?Director: Curtis Noe D.O., MPH Miriamgui Frye [place] LAB BLOOD ORDERAB LES Final Result Performing Organization Address [facility] de Phone Number [facility] [place] * (ABNORMAL) Iron profile w/ IBC (04/30/2019 4:42 PM DOOR PATCHER) Iron 15(L) 40 - 190 mcg/dL [facility] [place] TIBC 385 250 - 450 mcg/dL (calc) [facility] [place] Iron saturation 4(L) 16 - 45 % (calc) [facility] [place] Blood specimen (specimen) 04/30/2019 4:42 PM DOOR PATCHER 04/30/2019 4:43 PM DOOR PATCHER Narrative Resulting Agency Comment Performing Organization Information: ?Site ID: [place] ?Name: [facility] ?Address: [facility] [place] [address] ?Director: Curtis Noe D.O., MPH Miriam VALLE LAB BLOOD ORDERAB LES Final Result Performing Organization Address [facility] de Phone Number [place] * Vitamin B12 (04/30/2019 4:42 PM DOOR PATCHER) Vitamin B12 405 200 - 1,100 pg/mL [facility] Blood specimen (specimen) 04/30/2019 4:42 PM DOOR PATCHER 04/30/2019 4:43 PM DOOR PATCHER Narrative Resulting Agency Comment Performing Organization Information: ?Site ID: [place] ?Name: [facility] ?Address: [facility] [place] [address] ?Director: Curtis Noe D.O., MPH Miriam VALLE LAB BLOOD ORDERAB LES Final Result Performing Organization Address [facility] de Phone Number [facility] [place] * (ABNORMAL) Reticulocyte Count (04/30/2019 4:42 PM DOOR PATCHER) Pathologist [facility] Reticulocyte count, automated 1.8 % [facility] [place] Reticulocyte, absolute 82,080(H) 20,000 - 80,000 cells/uL [facility] [place] Blood specimen (specimen) 04/30/2019 4:42 PM DOOR PATCHER 04/30/2019 4:43 PM DOOR PATCHER Narrative Resulting Agency Comment Performing Organization Information: ?Site ID: [place] ?Name: [facility] ?Address: [address] [place], [place] [address] [address] ?Director: Curtis Noe D.O., MPH Miriam VALLE LAB BLOOD ORDERAB LES Final Result Performing Organization Address [facility] de Phone Number [facility] [place] * Folate (04/30/2019 4:42 PM DOOR PATCHER) Pathologist [facility] Folate, Serum 10.1 ng/mL [facility] [place] Comment: ? Reference Range ? Low: ? <3.4 ? Borderline: ?3.4-5.4 ? Normal: ?>5.4 Blood specimen (specimen) 04/30/2019 4:42 PM DOOR PATCHER 04/30/2019 4:43 PM DOOR PATCHER Narrative Resulting Agency Comment Performing Organization Information: ?Site ID: [place] ?Name: [facility] ?Address: [address] [place] [address] ?Director: Curtis Noe D.O., MPH us Miriam VALLE LAB BLOOD ORDERAB LES Final Result [facility] [place] documented in this encounter Visit Diagnoses Diagnosis Anemia, unspecified type- Primary documented in this encounter Care Teams Insurance Healthcare Representative Relationship Specialty Start Date End Date Isaiah Quiros MD [address] [place] [address] PCP - General Internal Medicine 04/01/17 06/02/20 Isaiah Quiros MD [address] [place] [address] Internal Medicine 02/18/17 03/19/21 Cash Heath III, MD [address] [facility] [address] [place] [address] Rheumatology 04/12/17 documented as of this encounter
--- OUTSIDE RECORDS SUMMARY | 2024-04-29 20:18 | XMS_ITS | Encounter Summary ---
Author Organization [facility] Address [address] [place] [address] Phone Care Team Providers Care Home Security Alarm Installer Name Role Phone Isaiah Quiros MD Unavailable Isaiah Quiros MD Primary Care Provider [phone] Kumar CARRILLO MD, Cash Howard Unavailable [phone] Alex Mahajan MD Unavailable [phone] Reason for Visit * Reason Onset Date Comments Med Refill 09/10/2019 Encounter Details Date Type Department Care Team (Late st Contact Info) Description 09/10/[address] [address] Miriam Frye PA [address] [place] [address] Med Refill Social History Tobacco Use Types Packs/Day Years Used Date Smoking Tobacco: Never Alcohol Use Standard Drinks/Week Comments No 0 (1 standard drink = 0.6 oz pur e alcohol) Comments No Sex and Gender Information Value Date Recorded Sex Assigned at Not on file Legal Sex Female 9:24 PM PLANT NURSERY WORKER Gender Identity Female 08/14/2022 11:32 AM [...] documented as of this encounter Care Teams Home Security Alarm Installer Relationship Specialty Start Date End Date Isaiah Quiros MD [address] [place] [address] PCP - General Internal Medicine 04/01/17 06/02/20 Isaiah Quiros MD [address] [place] [address] Internal Medicine 02/18/17 03/19/21 Cash Heath III, MD [address] [facility] [address] [place] [address] Rheumatology 04/12/17 Alex Mahajan MD [address] [facility] [address] [place] [address] Referring Physician Internal Medicine 05/07/19 1 documented as of this encounter
--- OUTSIDE RECORDS SUMMARY | 2024-04-29 20:18 | XMS_ITS | Encounter Summary ---
Author Organization [facility] Address [address] [place] [address] Phone Care Team Providers Care Fine Arts Packer Name Role Phone Isaiah Quiros MD Unavailable Isaiah Quiros MD Primary Care Provider [phone] Kumar CARRILLO MD, Cash Howard Unavailable [phone] Alex Mahajan MD Unavailable [phone] Reason for Visit * Reason Onset Date Comments Refill Denied 07/03/2019 Encounter Details Date Type Department Care Team (Late st Contact Info) Description 07/03/[address] [address] Tiara Rainey Refill Denied Social History Tobacco Use Types Packs/Day Years Used Date Smoking Tobacco: Never Alcohol Use Standard Drinks/Week Comments No 0 (1 standard drink = 0.6 oz pur e alcohol) Comments No Sex and Gender Information Value Date Recorded Sex Assigned at Not on file Legal Sex Female 9:24 PM RADIO ADJUSTER Gender Identity Female 08/14/2022 11:32 AM [...] filedocumented in this encounter Care Teams Fine Arts Packer Relationship Specialty Start Date End Date Isaiah Quiros MD [address] [place] [address] PCP - General Internal Medicine 04/01/17 06/02/20 Isaiah Quiros MD [address] [place] [address] Internal Medicine 02/18/17 03/19/21 Cash Heath III, MD [address] [place] [address] Rheumatology 04/12/17 Alex Mahajan MD [address] [place], [place] [address] Referring Physician Internal Medicine 05/07/19 1 documented as of this encounter
--- OUTSIDE RECORDS SUMMARY | 2024-04-29 20:18 | XMS_ITS | Encounter Summary ---
Author Organization [facility] Address [address] [place] [address] Phone Care Team Providers Care Personnel Representative Name Role Phone Isaiah Quiros MD Unavailable Isaiah Quiros MD Primary Care Provider [phone] Kumar CARRILLO MD, Cash Howard Unavailable [phone] Alex Mahajan MD Unavailable [phone] Encounter Details Date Type Department Care Team (Late st Contact Info) Description 01/15/2020 [facility] Only [facility] [address] [address] Miriam Frye PA [address] [place] [address] Social History Tobacco Use Types Packs/Day Years Used Date Smoking Tobacco: Never Alcohol Use Standard Drinks/Week Comments No 0 (1 standard drink = 0.6 oz pur e alcohol) Comments No Sex and Gender Information Value Date Recorded Sex Assigned at Not on file Legal Sex Female 9:24 PM LPN PER DIEM Gender Identity Female 08/14/2022 11:32 AM CDT [...] on filedocumented in this encounter Care Teams Personnel Representative Relationship Specialty Start Date End Date Isaiah Quiros MD [address] [place] [address] PCP - General Internal Medicine 04/01/17 06/02/20 Isaiah Quiros MD [address] [place] [address] Internal Medicine 02/18/17 03/19/21 Cash Heath III, MD [address] [place] [address] Rheumatology 04/12/17 Alex Mahajan MD [address] [place] [address] Referring Physician Internal Medicine 05/07/19 1 documented as of this encounter
--- OUTSIDE RECORDS SUMMARY | 2024-04-29 20:18 | XMS_ITS | Encounter Summary ---
Author Organization [facility] Address [address] [place] [address] Phone Care Team Providers Care Real Estate Firm Manager Name Role Phone Isaiah Quiros MD Unavailable Isaiah Quiros MD Primary Care Provider [phone] Kumar CARRILLO MD, Cash Howard Unavailable [phone] Alex Mahajan MD Unavailable [phone] Reason for Visit * Reason Comments Rheumatoid Arthritis Encounter Details Date Type Department Care Team (Late st Contact Info) Description 10/19/2019 9:15 AM CDT Office Visit [facility] [address] [place] [address] Miriam García PA [address] [place] [address] Rheumatoid arthritis of multiple sites [...] on file Legal Sex Female 9:24 PM HAY BUCKLER Gender Identity Female 08/14/2022 11:32 AM CDT [...] of orencia. Avise panel 08/2019---labs reveal positive anti-SKINNER PELTS antibody which is likely a false positive [...] of orencia. Avise panel 08/2019---labs reveal positive anti-SKINNER PELTS antibody which is likely a false positive [...] arthritis of multiple sites without rheumatoid factor ([facility]) Encounter for long-term (current) use of medications Osteoporosis without current pathological fracture URINALYSIS AND REFLEX TO MICROSCOPIC AND CULTURE Routine 10/19/2019 9:55 AM CDT Rheumatoid arthritis of multiple sites without rheumatoid factor ([facility]) Encounter for long-term (current) use of medications Osteoporosis without current pathological fracture CBC WITH AUTO DIFFERENTIAL Routine 10/19/2019 9:55 AM CDT Rheumatoid arthritis of multiple sites without rheumatoid factor ([facility]) Encounter for long-term (current) use of medications Osteoporosis without current pathological fracture PROTEIN / CREATININE RATIO, URINE, RANDOM Routine 10/19/2019 9:55 AM CDT Rheumatoid arthritis of multiple sites without rheumatoid factor ([facility]) Encounter for long-term (current) use of medications Osteoporosis without current pathological fracture ERYTHROCYTE SEDIMENTATION RATE Routine 10/19/2019 9:55 AM CDT Rheumatoid arthritis of multiple sites without rheumatoid factor ([facility]) Encounter for long-term (current) use of medications Osteoporosis without current pathological fracture C3 COMPLEMENT Routine 10/19/2019 9:55 AM CDT CRP (ACUTE PHASE) Routine 10/19/2019 9:5 5 AM CDT Rheumatoid arthritis of multiple sites without rheumatoid factor ([facility]) Encounter for long-term (current) use of medications Osteoporosis without current pathological fracture COMPREHENSIVE METABOLIC PANEL Routine 10/19/2019 9:55 AM CDT Rheumatoid arthritis of multiple sites without rheumatoid factor ([facility]) Encounter for long-term (current) use of medications Osteoporosis without current pathological fracture documented in this encounter Results * C4 complement (10/19/2019 9:55 AM CDT) Complement component C4C 33 15 - 57 mg/dL [facility] 10/19/2019 9:55 AM CDT 10/19/2019 9:56 AM CDT us Miriam VALLE LAB BLOOD ORDERAB LES Final Result Performing Organization Address [facility]/ZIP Co de Phone Number [facility] [address] [place] [address] * C3 complement (10/19/2019 9:55 AM CDT) Complement component C3C 153 83 - 193 mg/dL [facility] 10/19/2019 9:55 AM CDT 10/19/2019 9:56 AM CDT us Miriam VALLE LAB BLOOD ORDERAB LES Final Result Performing Organization Address [facility] Co de Phone Number [facility] [address] [place] [address] * Erythrocyte sedimentation rate (10/19/2019 9:55 AM CDT) Erythrocyte sedimentation rate 8 < OR = 20 mm/h [facility] Blood specimen (specimen) 10/19/2019 9:55 AM CDT 10/19/2019 9:56 AM CDT Miriam VALLE LAB BLOOD ORDERAB LES Final Result Performing Organization Address City/[facility] Co de Phone Number [facility] [address] [address] [place] [address] * Anti-double stranded DNA antibodies (10/19/2019 9:55 AM CDT) DNA (DS) ab <1 IU/mL [facility] Comment: ? IU/mL ? Interpretation ? < or = 4 ?Negative ? 5-9 ? Indeterminate ? > or = 10 ?? Positive Blood specimen (specimen) 10/19/2019 9:55 AM CDT 10/19/2019 9:56 AM CDT Miriam García [place] LAB BLOOD ORDERAB LES Final Result Performing Organization Address City/State/[facility] de Phone Number [facility] [address] [place] [address] * (ABNORMAL) CBC with auto differential (10/19/2019 [...] LAB BLOOD ORDERAB LES Final Result [facility] [address] [place] [address] * (ABNORMAL) CRP (acute phase) (10/19/2019 9:55 AM CDT) C-RP 11.3(H) <8.0 mg/L [facility] Blood specimen (specimen) 10/19/2019 9:55 AM CDT 10/19/2019 9:56 AM CDT Miriam VALLE LAB BLOOD ORDERAB LES Final Result [facility] [address] [place] [address] * Comprehensive metabolic panel (10/19/2019 9:55 AM CDT) Glucose 92 65 - 99 mg/dL [facility] Comment: ? Fasting reference interval BUN 10 7 - 25 mg/dL [facility] Creatinine 0.94 0.50 - 1.10 mg/dL [facility] eGFR NON-AFR. GUAMANIAN 73 > OR = 60 mL/min/1. 73m2 [facility] EGFR 85 > OR = 60 mL/min/1. 73m2 [facility] BUN/creat ratio NOT APPLICABLE 6 - 22 (calc) [facility] Sodium 139 135 - 146 mmol/L [facility] Potassium, pl 4.0 3.5 - 5.3 mmol/L [facility] Chloride 105 98 - 110 mmol/L [facility] CO2 25 20 - 32 mmol/L [facility] Calcium 9.1 8.6 - 10.2 mg/dL [facility] Protein, sr 6.3 6.1 - 8.1 g/dL [facility] Albumin 3.9 3.6 - 5.1 g/dL [facility] GLOBULIN 2.4 1.9 - 3.7 g/dL (calc) [facility] Alb/glob ratio 1.6 1.0 - 2.5 (calc) [facility] Bilirubin, total 0.2 0.2 - 1.2 mg/dL [facility] Alk phos 101 31 - 125 U/L [facility] AST 13 10 - 35 U/L [facility] ALT (SGPT) 19 6 - 29 U/L [facility] Blood specimen (specimen) 10/19/2019 9:55 AM CDT 10/19/2019 9:56 AM CDT us Miriam VALLE LAB BLOOD ORDERAB LES Final Result [facility] [address] [place] [address] * Protein / creatinine ratio, urine, random [...] URINE ORDERAB LES Final Result [facility] [address] [place] [address] * Urinalysis reflex to microscopic and culture Urine, bladder (10/19/2019 9:55 AM CDT) Color, ur YELLOW YELLOW [facility] Appearance, ur CLEAR CLEAR [facility] Specific gravity 1.015 1.001 - 1.035 [facility] pH, ur 6.0 5.0 - 8.0 [facility] Glucose, ur NEGATIVE NEGATIVE [facility] Bilirubin, ur NEGATIVE NEGATIVE [facility] Ketones, ur NEGATIVE NEGATIVE [facility] Blood, ur NEGATIVE NEGATIVE [facility] Protein, ur, quant NEGATIVE NEGATIVE [facility] Nitrites, ur NEGATIVE NEGATIVE [facility] Leukocyte esterase, ur NEGATIVE NEGATIVE [facility] WBC, ur NONE SEEN < OR = 5 /HPF [facility] RBC, ur NONE SEEN < OR = 2 /HPF [facility] Epithelial cells, squamous, ur 0-5 < OR = 5 /HPF [facility] Bacteria, ur, quant NONE SEEN NONE SEEN /HPF [facility] Calcium oxalate crystals, ur FEW NONE OR FEW /HPF [facility] Hyaline cast NONE SEEN NONE SEEN /LPF [facility] Urine culture NO CULTURE INDICATED [facility] Urine, bladder 10/19/2019 9: 55 AM CDT 10/19/2019 9:56 AM CDT Miriam VALLE LAB MICROBIOLOGY - GENERAL ORDERABLES Final Result Performing Organization Address City/[facility]/ZIP Co de Phone Number [facility] [address] [place] [phone] documented in this encounter Visit Diagnoses Diagnosis [...] documented as of this encounter Care Teams Real Estate Firm Manager Relationship Specialty Start Date End Date Isaiah Quiros MD [address] [place] [address] PCP - General Internal Medicine 04/01/17 06/02/20 Isaiah Quiros MD [address] [place] [address] Internal Medicine 02/18/17 03/19/21 Cash Heath III, MD [address] [place] [address] Rheumatology 04/12/17 Alex Mahajan MD [address] [place] [address] Referring Physician Internal Medicine 05/07/19 1 documented as of this encounter
--- OUTSIDE RECORDS SUMMARY | 2024-04-29 20:18 | XMS_ITS | Encounter Summary ---
Author Organization [facility] Address [address] [place] [address] Care Team Providers Care Beauty Therapist Name Role Phone Isaiah Quiros MD Unavailable Isaiah Quiros MD Primary Care Provider [phone] Kumar CARRILLO MD, Bryon. Unavailable [phone] Alex Mahajan MD Unavailable [phone] Encounter Details Date Type Department Care Team (Late st Contact Info) Description 05/11/2019 Telephone [facility] Obstetrical Gynecology [address] [place] [address] [place] [address] [place] [address] [address] [place] [address] Social History Tobacco Use Types Packs/Day Years Used Date Smoking Tobacco: Never Alcohol Use Standard Drinks/Week Comments No 0 (1 standard drink = 0.6 oz pur e alcohol) Comments No Sex and Gender Information Value Date Recorded Sex Assigned at Not on file Legal Sex Female 9:24 PM AMMONIA DISTILLER Gender Identity Female 08/14/2022 11:32 AM CDT Sexual Orientation Straight 02/13/2023 7: 01 AM CDT documented as of this encounter Miscellaneous Notes * Telephone Encounter - Letty Gonzalez MA - 05/14/2019 4:08 PM CST Pharmacy called. Rx changed Per Dr. Oseguera. NIA DISTILLER * Telephone Encounter - Helio Felipe MA - 05/14/2019 1:35 PM CST LMOM. Try and send to different pharmacy NIA DISTILLER * Telephone Encounter - Curtis Oseguera MD - 05/11/2019 4:25 PM AMMONIA DISTILLER Use age different generic or name brand Loestrin .09/18 if unable to get change to Loestrin 05/11. NIA DISTILLER * Telephone Encounter - Helio Felipe MA - 05/11/2019 11:17 AM CST Pharmacy called saying the Blisovi .09/18 is unavailable right now from the measurement psychologist. What do you want to change hers to? NIA DISTILLER documented in this encounter Plan of Treatment Not on file documented as of this encounter Visit Diagnoses Not on filedocumented in this encounter Care Teams Beauty Therapist Relationship Specialty Start Date End Date Isaiah Quiros MD [address] [place] [address] PCP - General Internal Medicine 04/01/17 06/02/20 Isaiah Quiros MD [address] [place] [address] Internal Medicine 02/18/17 03/19/21 Cash Heath III, MD [address] [facility] [address] [place] [address] Rheumatology 04/12/17 Alex Mahajan MD [address] [address] Referring Physician Internal Medicine 05/07/19 1 documented as of this encounter
--- OUTSIDE RECORDS SUMMARY | 2024-04-29 20:18 | XMS_ITS | Encounter Summary ---
Author Organization [facility] Address [address] [place] [address] Phone Care Team Providers Care Room Cooler Installer Name Role Phone Isaiah Quiros MD Unavailable Isaiah Quiros MD Primary Care Provider Kumar CARRILLO MD, Cash Howard Unavailable Alex Mahajan MD Unavailable [phone] Encounter Details Date Type Department Care Team (Late st Contact Info) Description 01/22/2020 Telephone [facility] [address] [place] [address] Miriam Frye PA [address] [place] [address] Social History Tobacco Use Types Packs/Day Years Used Date Smoking Tobacco: Never Alcohol Use Standard Drinks/Week Comments No 0 (1 standard drink = 0.6 oz pur e alcohol) Comments No Sex and Gender Information Value Date Recorded Sex Assigned at Not on file Legal Sex Female 9:24 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 OFFICER Gender Identity Female 08/14/2022 11:32 AM [...] documented as of this encounter Care Teams Room Cooler Installer Relationship Specialty Start Date End Date Isaiah Quiros MD [address] [place] [address] PCP - General Internal Medicine 04/01/17 06/02/20 Isaiah Quiros MD [address] [place] [address] Internal Medicine 02/18/17 03/19/21 Cash Heath III, MD [address] [place] [address] Rheumatology 04/12/17 Alex Mahajan MD [address] [place] [address] Referring Physician Internal Medicine 05/07/19 1 documented as of this encounter
--- OUTSIDE RECORDS SUMMARY | 2024-04-29 20:18 | XMS_ITS | Encounter Summary ---
Author Organization [facility] Address [address] [place] [address] Phone Care Team Providers Care Home Care Consultant Name Role Phone Isaiah Quiros MD Unavailable Isaiah Quiros MD Primary Care Provider [phone] Kumar CARRILLO MD, Cash Howard Unavailable [phone] Alex Mahajan MD Unavailable [phone] Reason for Referral * Diagnostic Imaging (Routine) - Closed Specialty Diagnoses / Procedures Referred By Contmonserrat t Referred To Contact Diagnoses Rheumatoid arthritis of multiple sites without rheumatoid factor ([facility]) (HCC) Encounter for long-term (current) use of medications Osteoporosis without current pathological fracture, unspecified osteoporosis type Procedures US Hand Complete Miriam Frye PA [address] [place] [address] Phone: tel: fax: External Order Referral ID Status Reason Start Date Expiration Date Visits Re quested Visits Authorized [id number] Closed 09/10/2019 03/21/2021 1 1 Reason for Visit * Reason Comments Rheumatoid Arthritis Encounter Details Date Type Department Care Team (Late st Contact Info) Description 09/10/2019 9:15 AM CDT Office Visit [facility] [address] [place] [address] Miriam Frye PA [address] [place] [address] Rheumatoid arthritis of multiple sites without rheumatoid [...] on file Legal Sex Female 9:24 PM HEDDLER TIER Gender Identity Female 08/14/2022 11:32 AM CDT [...] CDT Patient Education Triamcinolone (By injection) Triamcinolone (wtet-wh-LBU-oh-lone) Treats many diseases and conditions, especially problems [...] pharmacist before using any other medicine, including onmh-rkv-wxlpkhv medicines, vitamins, and herbal products. ?? There [...] may report side effects to FDA at 2-309-LRV-6508 ?? 2017 [employer] Information is for End User's use only and may not be sold, redistributed or otherwise used for commercial purposes. The above information is an early childhood aide classroom only. It is not intended as medical [...] arthritis of multiple sites without rheumatoid factor ([facility]) Encounter for long-term (current) use of medications Osteoporosis without current pathological fracture, unspecified osteoporosis type CBC WITH AUTO DIFFERENTIAL Routine 09/10/2019 10:34 AM CDT Rheumatoid arthritis of multiple sites without rheumatoid factor ([facility]) Encounter for long-term (current) use of medications Osteoporosis without current pathological fracture, unspecified osteoporosis type ERYTHROCYTE SEDIMENTATION RATE Routine 09/10/2019 10:34 AM CDT Rheumatoid arthritis of multiple sites without rheumatoid factor ([facility]) Encounter for long-term (current) use of medications Osteoporosis without current pathological fracture, unspecified osteoporosis type CRP (ACUTE PHASE) Routine 09/10/2019 10: 34 AM CDT Rheumatoid arthritis of multiple sites without rheumatoid factor ([facility]) Encounter for long-term (current) use of medications Osteoporosis without current pathological fracture, unspecified osteoporosis type COMPREHENSIVE METABOLIC PANEL Routine 09/10/2019 10:34 AM CDT Rheumatoid arthritis of multiple sites without rheumatoid factor ([facility]) Encounter for long-term (current) use of medications Osteoporosis without current pathological fracture, unspecified osteoporosis type MISCELLANEOUS LAB TEST Routine 09/10/2019 Rheumatoid arthritis of multiple sites without rheumatoid factor ([facility]) Encounter for long-term (current) use [...] ST ORDERABLES Final Result Performing Organization Address [facility] Co de Phone Number [facility] [address] [place] [address] * Erythrocyte sedimentation rate (09/10/2019 10:34 AM CDT) [facility] Erythrocyte sedimentation rate 11 < OR = 20 mm/h [facility] jacqueline Baez Blood specimen (specimen) 09/10/2019 10:34 AM CDT 09/10/2019 10:37 AM CDT Miriam VALLE LAB BLOOD ORDERAB LES Final Result Performing Organization Address [facility] Co de Phone Number [facility] [address] [place] [address] * (ABNORMAL) CRP (acute phase) (09/10/2019 10:34 AM CDT) [facility] C-RP 23.5(H) <8.0 mg/L [facility] Blood specimen (specimen) 09/10/2019 10:34 AM CDT 09/10/2019 10:37 AM CDT Miriam VALLE LAB BLOOD ORDERAB LES Final Result Performing Organization Address [facility] Co de Phone Number [facility] [address] [place] [address] * (ABNORMAL) Comprehensive metabolic panel (09/10/2019 10:34 AM CDT) [facility] Glucose 105(H) 65 - 99 mg/dL [facility] Comment: ? Fasting reference interval For someone without known diabetes, a glucose value between 100 and 125 mg/dL is consistent with prediabetes and should be confirmed with a follow-up test. BUN 12 7 - 25 mg/dL [facility] Creatinine 0.97 0.50 - 1.10 mg/dL [facility] eGFR NON-AFR. DOMINICAN 71 > OR = 60 mL/min/1. 73m2 [facility] EGFR 82 > OR = 60 mL/min/1. 73m2 [facility] BUN/creat ratio NOT APPLICABLE 6 - 22 (calc) [facility] Sodium 137 135 - 146 mmol/L [facility] Potassium, pl 3.5 3.5 - 5.3 mmol/L [facility] Chloride 101 98 - 110 mmol/L [facility] CO2 24 20 - 32 mmol/L [facility] Calcium 9.1 8.6 - 10.2 mg/dL [facility] Protein, sr 6.7 6.1 - 8.1 g/dL [facility] Albumin 3.9 3.6 - 5.1 g/dL [facility] GLOBULIN 2.8 1.9 - 3.7 g/dL (calc) [facility] Alb/glob ratio 1.4 1.0 - 2.5 (calc) [facility] Bilirubin, total 0.2 0.2 - 1.2 mg/dL [facility] Alk phos 104 31 - 125 U/L [facility] AST 25 10 - 35 U/L [facility] ALT (SGPT) 81(H) 6 - 29 U/L [facility] Blood specimen (specimen) 09/10/2019 10:34 AM CDT 09/10/2019 10:37 AM CDT us Miriam VALLE LAB BLOOD ORDERAB LES Final Result [facility] [address] [address] * (ABNORMAL) CBC with auto differential (09/10/2019 [...] BLOOD ORDERAB LES Final Result BETH Baez [address] [place] [address] * avise - Miscellaneous Test (09/10/2019) Miscellaneous [...] 09/10/2019 documented in this encounter Care Teams Home Care Consultant Relationship Specialty Start Date End Date Isaiah Quiros MD [address] [place] [address] PCP - General Internal Medicine 04/01/17 06/02/20 Isaiah Quiros MD [address] [place] [address] Internal Medicine 02/18/17 03/19/21 Cash Woodruff III, MD [address] [place] [address] Rheumatology 04/12/17 Alex Mahajan MD [address] [place] [address] Referring Physician Internal Medicine 05/07/19 1 documented as of this encounter
--- OUTSIDE RECORDS SUMMARY | 2024-04-29 20:18 | XMS_ITS | Encounter Summary ---
Author Organization [facility] Address [address] [place] [address] Phone Care Team Providers Care Software Technician Name Role Phone Isaiah Quiros MD Unavailable Isaiah Quiros MD Primary Care Provider [phone] Kumar CARRILLO MD, Cash Howard Unavailable [phone] Alex Mahajan MD Unavailable [phone] Reason for Visit * Reason Onset Date Comments González VALLEJO approved, auth [id number] expires . Pleas 01/19/2020 Encounter Details Date Type Department Care Team (Late st Contact Info) Description 01/19/2020 Telephone [facility] [address] [place] [address] Ghazala Westbrook IV approved, auth [id number] expires 01/07/22. Pleas Social History Tobacco Use Types Packs/Day Years Used Date Smoking Tobacco: Never Alcohol Use Standard Drinks/Week Comments No 0 (1 standard drink = 0.6 oz pur e alcohol) Comments No Sex and Gender Information Value Date Recorded Sex Assigned at Not on file Legal Sex Female 9:24 PM MEDICAL DERMATOLOGIST Gender Identity Female 08/14/2022 11:32 AM CDT [...] 1:18 PM CDT Orencia IV approved, auth [id number] expires 01/07/22. Please schedule patient. Please add to med list. Thank you. documented in this encounter Plan of Treatment Not on file documented as of this encounter Visit Diagnoses Not on filedocumented in this encounter Care Teams Software Technician Relationship Specialty Start Date End Date Isaiah Quiros MD [address] [place] [address] PCP - General Internal Medicine 04/01/17 06/02/20 Isaiah Quiros MD [address] [place] [address] Internal Medicine 02/18/17 03/19/21 Cash Heath III, MD [address] [place] [address] Rheumatology 04/12/17 Alex Mahajan MD [address] [place] [address] Referring Physician Internal Medicine 05/07/19 1 documented as of this encounter
--- OUTSIDE RECORDS SUMMARY | 2024-04-29 20:18 | XMS_ITS | Encounter Summary ---
Author Organization [facility] Care Team Providers Care Office Services Associate Name Role Phone Isaiah Quiros MD Unavailable Isaiah Quiros MD Primary Care Provider [phone] Kumar CARRILLO MD, Cash Howard Unavailable [phone] Alex Mahajan MD Unavailable [phone] Encounter Details Date Type Department Care Team (Latest Contact Info) Description 07/09/2019 Travel Social History Tobacco Use Types Packs/Day Years Used Date Smoking Tobacco: Never Alcohol Use Standard Drinks/Week Comments No 0 (1 standard drink = 0.6 oz pur e alcohol) Comments No Sex and Gender Information Value Date Recorded Sex Assigned at Not on file Legal Sex Female 9:24 PM NURSE PRIVATE DUTY Gender Identity Female 08/14/2022 11:32 AM CDT [...] on filedocumented in this encounter Care Teams Office Services Associate Relationship Specialty Start Date End Date Isaiah Quiros MD [address] [place] [address] PCP - General Internal Medicine 04/01/17 06/02/20 Isaiah Quiros MD [address] [facility] 1 [place] [address] Internal Medicine 02/18/17 03/19/21 Cash Heath III, MD [address] [place] [address] Rheumatology 04/12/17 Alex Mahajan MD [address] [place] [address] Referring Physician Internal Medicine 05/07/19 1 documented as of this encounter
--- OUTSIDE RECORDS SUMMARY | 2024-04-29 20:18 | XMS_ITS | Encounter Summary ---
Author Organization [facility] Address [address] [place] [address] Phone Care Team Providers Care Bed Maker Name Role Phone Isaiah Quiros MD Unavailable Isaiah Quiros MD Primary Care Provider [phone] Kumar CARRILLO MD, Cash Howard Unavailable [phone] Alex Mahajan MD Unavailable [phone] Encounter Details Date Type Department Care Team (Late st Contact Info) Description 02/02/2020 Telephone [facility] [address] [place] [address] Maisha Avila RN Social History Tobacco Use Types Packs/Day Years Used Date Smoking Tobacco: Never Alcohol Use Standard Drinks/Week Comments No 0 (1 standard drink = 0.6 oz pur e alcohol) Comments No Sex and Gender Information Value Date Recorded Sex Assigned at Not on file Legal Sex Female 9:24 PM CLOTH REELER Gender Identity Female 08/14/2022 11:32 AM CDT [...] on filedocumented in this encounter Care Teams Bed Maker Relationship Specialty Start Date End Date Isaiah Quiros MD [address] [place] [address] PCP - General Internal Medicine 04/01/17 06/02/20 Isaiah Quiros MD [address] [place] [address] Internal Medicine 02/18/17 03/19/21 Cash Heath III, MD [address] [place], [place] [address] Rheumatology 04/12/17 Alex Mahajan MD [address] [place], [place] [address] Referring Physician Internal Medicine 05/07/19 1 documented as of this encounter
--- OUTSIDE RECORDS SUMMARY | 2024-04-29 20:18 | XMS_ITS | Encounter Summary ---
Author Organization [facility] Address [address] [place] [address] Care Team Providers Care Ice Cream Server Name Role Phone Isaiah Quiros MD Unavailable Isaiah Quiros MD Primary Care Provider [phone] Kumar CARRILLO MD, Cash Howard Unavailable [phone] Encounter Details Date Type Department Care Team (Late st Contact Info) Description 12/26/2018 7:25 AM CDT [address] [address] Social History Tobacco Use Types Packs/Day Years Used Date Smoking Tobacco: Never Alcohol Use Standard Drinks/Week Comments No 0 (1 standard drink = 0.6 oz pur e alcohol) Comments No Sex and Gender Information Value Date Recorded Sex Assigned at Not on file Legal Sex Female 9:24 PM CAKE WRINGER Gender Identity Female 08/14/2022 11:32 AM CDT Sexual Orientation Straight 02/13/2023 7: 01 AM CDT documented as of this encounter Plan of Treatment Pending Results Name Type Priority Associated Diagnoses Date /Time High risk HPV RNA w pap Pathology and Cytology Routine 12/24/2018 3:41 PM CDT documented as of this encounter Visit Diagnoses Not on filedocumented in this encounter Care Teams Ice Cream Server Relationship Specialty Start Date End Date Isaiah Quiros MD [address] [place], [place] [address] PCP - General Internal Medicine 04/01/17 06/02/20 Isaiah Quiros MD [address] [facility] 1 [place] [address] Internal Medicine 02/18/17 03/19/21 Cash Heath III, MD [address] [facility] [address] [place] [address] Rheumatology 04/12/17 documented as of this encounter
--- OUTSIDE RECORDS SUMMARY | 2024-04-29 20:18 | XMS_ITS | Encounter Summary ---
Author Organization [facility] Address [address] [place] [address] Phone Care Team Providers Care Priming Machine Operator Name Role Phone Isaiah Quiros MD Unavailable Isaiah Quiros MD Primary Care Provider [phone] Kumar CARRILLO MD, John J. Unavailable [phone] Alex Mahajan MD Unavailable [phone] Reason for Referral * Medication Authorization - Closed Specialty Diagnoses / Procedures Referred By Contac t Referred To Contact Diagnoses Rheumatoid arthritis of multiple sites without rheumatoid factor ([facility]) ([facility]) Cash Heath III, MD [address] [place] [address] Phone: tel: fax: Referral ID Status Reason Start Date Expiration Date Visits Re quested Visits Authorized [id number] Closed 01/19/2020 02/17/2021 1 1 Encounter Details Date Type Department Care Team (Late st Contact Info) Description 01/19/2020 Orders Only [facility] [address] [place] [address] Cash Heath III, MD [address] [place] [address] Rheumatoid arthritis of multiple sites without rheumatoid factor (CMS/HCC) (Primary Dx) Social History Tobacco Use Types Packs/Day Years Used Date Smoking Tobacco: Never Alcohol Use Standard Drinks/Week Comments No 0 (1 standard drink = 0.6 oz pur e alcohol) Comments No Sex and Gender Information Value Date Recorded Sex Assigned at Not on file Legal Sex Female 9:24 PM GENERAL MAGISTRATE Gender Identity Female 08/14/2022 11:32 AM CDT [...] 01/19/2020 documented in this encounter Care Teams Priming Machine Operator Relationship Specialty Start Date End Date Isaiah Quiros MD [address] [place] [address] PCP - General Internal Medicine 04/01/17 06/02/20 Isaiah Quiros MD [address] [place] [address] Internal Medicine 02/18/17 03/19/21 Cash Heath III, MD [address] [place] [address] Rheumatology 04/12/17 Alex Mahajan MD [address] [facility] [facility] [address] [place] [address] Referring Physician Internal Medicine 05/07/19 1 documented as of this encounter
--- OUTSIDE RECORDS SUMMARY | 2024-04-29 20:18 | XMS_ITS | Encounter Summary ---
Author Organization [facility] Address [address] [place] [address] Phone Care Team Providers Care Marine Water Tender Name Role Phone Isaiah Quiros MD Unavailable Isaiah Quiros MD Primary Care Provider [phone] Kumar CARRILLO MD, Cash Howard Unavailable [phone] Alex Mahajan MD Unavailable [phone] Encounter Details Date Type Department Care Team (Late st Contact Info) Description 07/13/2019 Telephone [facility] [address] [place] [address] Miriam Frye PA [address] [place] [address] Social History Tobacco Use Types Packs/Day Years Used Date Smoking Tobacco: Never Alcohol Use Standard Drinks/Week Comments No 0 (1 standard drink = 0.6 oz pur e alcohol) Comments No Sex and Gender Information Value Date Recorded Sex Assigned at Not on file Legal Sex Female 9:24 PM FLIGHT OPERATIONS 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 No / Unsure 07/09/2019 8:45 AM CDT documented as of this encounter Miscellaneous Notes * Telephone Encounter - Tiara aRiney - 07/14/2019 11:08 AM CDT Spoke w/pt [...] on filedocumented in this encounter Care Teams Marine Water Tender Relationship Specialty Start Date End Date Isaiah Quiros MD [address] [place] [address] PCP - General Internal Medicine 04/01/17 06/02/20 Isaiah Quiros MD [address] [place] [address] Internal Medicine 02/18/17 03/19/21 Cash Heath III, MD [address] [place] [address] Rheumatology 04/12/17 Alex Mahajan MD [address] [place] [address] Referring Physician Internal Medicine 05/07/19 1 documented as of this encounter
--- OUTSIDE RECORDS SUMMARY | 2024-04-29 20:18 | XMS_ITS | Encounter Summary ---
Author Organization [facility] Address [address] [place] [address] Phone Care Team Providers Care Piece Jobber Name Role Phone Isaiah Quiros MD Unavailable Isaiah Quiros MD Primary Care Provider [phone] Kumar CARRILLO MD, Cash Howard Unavailable [phone] Alex Mahajan MD Unavailable [phone] Encounter Details Date Type Department Care Team (Late st Contact Info) Description 12/23/2019 Telephone [facility] [address] [place] [address] Elena Kumari PA [address] [place] [address] Social History Tobacco Use Types Packs/Day Years Used Date Smoking Tobacco: Never Alcohol Use Standard Drinks/Week Comments No 0 (1 standard drink = 0.6 oz pur e alcohol) Comments No Sex and Gender Information Value Date Recorded Sex Assigned at Not on file Legal Sex Female 9:24 PM NEGATIVE STRIPPER Gender Identity Female 08/14/2022 11:32 AM [...] documented as of this encounter Care Teams Piece Jobber Relationship Specialty Start Date End Date Isaiah Quiros MD [address] [place] [address] PCP - General Internal Medicine 04/01/17 06/02/20 Isaiah Quiros MD [address] [place] [address] Internal Medicine 02/18/17 03/19/21 Cash Heath III, MD [address] [place] [address] Rheumatology 04/12/17 Alex Mahajan MD [address] [facility] [address] [place] [address] Referring Physician Internal Medicine 05/07/19 1 documented as of this encounter
--- OUTSIDE RECORDS SUMMARY | 2024-04-29 20:18 | XMS_ITS | Encounter Summary ---
Author Organization [facility] Address [address] [place] [address] Phone Care Team Providers Care Instant Printer Operator Name Role Phone Isaiah Quiros MD Unavailable Isaiah Quiros MD Primary Care Provider [phone] Kumar CARRILLO MD, Cash Howard Unavailable [phone] Encounter Details Date Type Department Care Team (Late st Contact Info) Description 04/30/2019 Telephone [facility] [address] [place] [address] Tiara Rainey Social History Tobacco Use Types Packs/Day Years Used Date Smoking Tobacco: Never Alcohol Use Standard Drinks/Week Comments No 0 (1 standard drink = 0.6 oz pur e alcohol) Comments No Sex and Gender Information Value Date Recorded Sex Assigned at Not on file Legal Sex Female 9:24 PM RECOVERY ASSISTANT Gender Identity Female 08/14/2022 11:32 AM [...] afternoon when she comes for her infusion. VERY ASSISTANT documented in this encounter Plan of Treatment Not on file documented as of this encounter Visit Diagnoses Not on filedocumented in this encounter Care Teams Instant Printer Operator Relationship Specialty Start Date End Date Isaiah Quiros MD [address] [place] [address] PCP - General Internal Medicine 04/01/17 06/02/20 Isaiah Quiros MD [address] [place] [address] Internal Medicine 02/18/17 03/19/21 Cash Heath III, MD [address] [facility] [address] [place] [address] Rheumatology 04/12/17 documented as of this encounter
--- OUTSIDE RECORDS SUMMARY | 2024-04-29 20:18 | XMS_ITS | Encounter Summary ---
Author Organization [facility] Address [address] [place] [address] Phone Care Team Providers Care Business Systems Advisor Name Role Phone Isaiah Quiros MD Unavailable Isaiah Quiros MD Primary Care Provider [phone] Kumar CARRILLO MD, Cash Howard Unavailable [phone] Alex Mahajan MD Unavailable [phone] Reason for Referral * Diagnostic Imaging (Routine) - Closed Specialty Diagnoses / Procedures Referred By Kaylynn phillips Referred To Contact Diagnoses Trochanteric bursitis of right hip Procedures [facility] Miriam Frye PA [address] [place] [address] Phone: tel: fax: External Order Referral ID Status Reason Start Date Expiration Date Visits Re quested Visits Authorized [id number] Closed 01/22/2020 02/20/2021 1 1 * Diagnostic Imaging (Routine) - Closed Specialty Diagnoses / Procedures Referred By Kaylynn phillips Referred To Contact Diagnoses Trochanteric bursitis of right hip Procedures Hip Miriam Frye PA [address] [place] [address] Phone: tel: fax: External Order Referral ID Status Reason Start Date Expiration Date Visits Re quested Visits Authorized [id number] Closed 01/22/2020 02/20/2021 1 1 Encounter Details Date Type Department Care Team (Late st Contact Info) Description 01/22/2020 11:00 AM CDT Office Visit [facility] [address] [place] [address] Miriam Frye PA [address] [place] [address] Rheumatoid arthritis of multiple sites without rheumatoid [...] on file Legal Sex Female 9:24 PM 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 Gender Identity Female 08/14/2022 11:32 AM [...] Past serologies: [facility] panel 08/2019---labs reveal positive anti-PRINTING EQUIPMENT MECHANIC APPRENTICE antibody which is likely a false [...] showed osteoporosis [facility] 08/2019---[facility] labs reveal positive anti-PRINTING EQUIPMENT MECHANIC APPRENTICE antibody which is likely a false [...] showed osteoporosis [facility] 08/2019---[facility] labs reveal positive anti-PRINTING EQUIPMENT MECHANIC APPRENTICE antibody which is likely a false [...] Past serologies: [facility] panel 08/2019---labs reveal positive anti-PRINTING EQUIPMENT MECHANIC APPRENTICE antibody which is likely a false [...] 01/22/2020 documented in this encounter Care Teams Business Systems Advisor Relationship Specialty Start Date End Date Isaiah Quiros MD [address] [place] [address] PCP - General Internal Medicine 04/01/17 06/02/20 Isaiah Quiros MD [address] [place] [address] Internal Medicine 02/18/17 03/19/21 Cash Heath III, MD [address] [facility] [address] [place] [address] Rheumatology 04/12/17 Alex Mahajan MD [address] [facility] [address] [place] [address] Referring Physician Internal Medicine 05/07/19 1 documented as of this encounter
--- OUTSIDE RECORDS SUMMARY | 2024-04-29 20:18 | XMS_ITS | Encounter Summary ---
Author Organization [facility] Care Team Providers Care Sewing Department Supervisor Name Role Phone Isaiah Quiros MD Unavailable Isaiah Quiros MD Primary Care Provider [phone] Kumar CARRILLO MD, Cash Howard Unavailable [phone] Encounter Details Date Type Department Care Team (Latest Contact Info) Description 04/30/2019 Travel Social History Tobacco Use Types Packs/Day Years Used Date Smoking Tobacco: Never Alcohol Use Standard Drinks/Week Comments No 0 (1 standard drink = 0.6 oz pur e alcohol) Comments No Sex and Gender Information Value Date Recorded Sex Assigned at Not on file Legal Sex Female 9:24 PM ENVIRONMENTAL SERVICES PROJECT MANAGER Gender Identity Female 08/14/2022 11:32 AM CDT Sexual Orientation Straight 02/13/2023 7: 01 AM CDT documented as of this encounter Plan of Treatment Not on file documented as of this encounter Visit Diagnoses Not on filedocumented in this encounter Care Teams Sewing Department Supervisor Relationship Specialty Start Date End Date Isaiah Quiros MD [address] [place] [address] PCP - General Internal Medicine 04/01/17 06/02/20 Isaiah Quiros MD [address] [place] [address] Internal Medicine 02/18/17 03/19/21 Cash Heath III, MD [address] [address] Rheumatology 04/12/17 documented as of this encounter
--- OUTSIDE RECORDS SUMMARY | 2024-04-29 20:18 | XMS_ITS | Encounter Summary ---
Author Organization [facility] Address [address] [place] [address] Phone Care Team Providers Care Denture Model Maker Name Role Phone Isaiah Quiros MD Unavailable Isaiah Quiros MD Primary Care Provider [phone] Kumar CARRILLO MD, Cash Howard Unavailable [phone] Alex Mahajan MD Unavailable [phone] Encounter Details Date Type Department Care Team (Late st Contact Info) Description 12/25/2019 Orders Only [facility] [address] [place] [address] Tiara Rainey Hematuria, unspecified type (Primary Dx) Social History Tobacco Use Types Packs/Day Years Used Date Smoking Tobacco: Never Alcohol Use Standard Drinks/Week Comments No 0 (1 standard drink = 0.6 oz pur e alcohol) Comments No Sex and Gender Information Value Date Recorded Sex Assigned at Not on file Legal Sex Female 9:24 PM ASSISTANT RESEARCH 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
--- OUTSIDE RECORDS SUMMARY | 2024-04-29 20:18 | XMS_ITS | Encounter Summary ---
Author Organization [facility] Address [address] [place] [address] Phone Care Team Providers Care Floral Assistant Name Role Phone Isaiah Quiros MD Unavailable Isaiah Quiros MD Primary Care Provider [phone] Kumar CARRILLO MD, Cash Howard Unavailable [phone] Alex Mahajan MD Unavailable [phone] Reason for Visit * Reason Comments Rheumatoid Arthritis Encounter Details Date Type Department Care Team (Late st Contact Info) Description 07/09/2019 9:00 AM CDT Office Visit [facility] [address] [place] [address] Miriam Frye PA [address] [place] [address] Rheumatoid arthritis of multiple sites [...] on file Legal Sex Female 9:24 PM MICROFILM MOUNTER Gender Identity Female 08/14/2022 11:32 AM CDT [...] Performing Organization Information: ?Site ID: [place] ?Name: [facility] ?Address: [address] [place] [address] ?Director: Bobby Mcarthur us Miriam VALLE LAB BLOOD ORDERAB LES Final Result [facility] [place], [place] * CRP (acute phase) (07/09/2019 10:31 AM CDT) C-RP 7.9 <8.0 mg/L [facility] [place] Blood specimen (specimen) 07/09/2019 10:31 AM CDT 07/09/2019 10:32 AM CDT Narrative Resulting Agency Comment Performing Organization Information: ?Site ID: [place] ?Name: [facility] ?Address: [address] [address] ?Director: Curtis Noe D.O., MPH us Miriam [facility] LAB BLOOD ORDERAB LES Final Result [facility] [place] [address] [place] * (ABNORMAL) Comprehensive metabolic panel (07/09/2019 10:31 AM CDT) Glucose 87 65 - 99 mg/dL [facility] [place] Comment: ? Fasting reference interval BUN 15 7 - 25 mg/dL [facility] [place] Creatinine 0.86 0.50 - 1.10 mg/dL [facility] [place] eGFR NON-AFR. ROMANIAN 82 > OR = 60 mL/min/1. 73m2 [...] Performing Organization Information: ?Site ID: [place] ?Name: [facility] ?Address: [address] [address] ?Director: Curtis Noe D.O., MPH Miriam VALLE [...] Performing Organization Information: ?Site ID: [place] ?Name: [facility] ?Address: [address] [address] ?Director: Bobby Mcarthur us Miriam VALLE LAB BLOOD ORDERAB LES Final Result [facility] [place], [place] documented in this encounter Visit Diagnoses [...] documented as of this encounter Care Teams Floral Assistant Relationship Specialty Start Date End Date Isaiah Quiros MD [address] [place] [address] PCP - General Internal Medicine 04/01/17 06/02/20 Isaiah Quiros MD [address] [place] [address] Internal Medicine 02/18/17 03/19/21 Cash Heath III, MD [address] [facility] [address] [place] [address] Rheumatology 04/12/17 Alex Mahajan MD [address] [facility] [address] [place], [place] [address] Referring Physician Internal Medicine 05/07/19 1 documented as of this encounter
--- OUTSIDE RECORDS SUMMARY | 2024-04-29 20:18 | XMS_ITS | Encounter Summary ---
Author Organization [facility] Address [address] [place] [address] Phone Care Team Providers Care Curb Setter Helper Name Role Phone Isaiah Quiros MD Unavailable Isaiah Quiros MD Primary Care Provider [phone] Kumar CARRILLO MD, Cash Howard Unavailable [phone] Alex Mahajan MD Unavailable [phone] Reason for Referral * Diagnostic Imaging (Routine) - Closed Specialty Diagnoses / Procedures Referred By Kaylynn phillips Referred To Contact Diagnoses Rheumatoid arthritis of multiple sites without rheumatoid factor (CMS/HCC) (HCC) Encounter for long-term (current) use of medications Osteoporosis without current pathological fracture, unspecified osteoporosis type Procedures [facility] Miriam Frye PA [address] [place] [address] Phone: tel: fax: External Order Referral ID Status Reason Start Date Expiration Date Visits Re quested Visits Authorized [id number] Closed 09/10/2019 03/21/2021 1 1 Reason for Visit * Diagnostic Imaging (Routine) - Closed Specialty Diagnoses / Procedures Referred By Kaylynn phillips Referred To Contact Diagnoses Rheumatoid arthritis of multiple sites without rheumatoid factor (CMS/HCC) (HCC) Encounter for long-term (current) use of medications Osteoporosis without current pathological fracture, unspecified osteoporosis type Procedures US Hand Complete Miriam Frye PA [address] [place] [address] Phone: tel: fax: External Order Referral ID Status Reason Start Date Expiration Date Visits Re quested Visits Authorized [id number] Closed 09/10/2019 03/21/2021 1 1 Encounter Details Date Type Department Care Team (Latest Contact Info) Description 10/01/2019 8:51 AM CDT - 10/01/2019 11:59 PM CDT Hospital Encounter [facility] [address] [place] [address] Rheumatoid arthritis of multiple sites without rheumatoid factor ([facility]); Encounter for long-term (current) use of medications; [...] file Legal Sex Female 9:24 PM RN BIRTHING Gender Identity Female 08/14/2022 11:32 AM CDT [...] type documented in this encounter Care Teams Curb Setter Helper Relationship Specialty Start Date End Date Isaiah Quiros MD [address] [place] [address] PCP - General Internal Medicine 04/01/17 06/02/20 Isaiah Quiros MD [address] [place] [address] Internal Medicine 02/18/17 03/19/21 Cash Heath III, MD [address] [facility] [address] [place] [address] Rheumatology 04/12/17 Alex Mahajan MD [address] [facility] [address] [place] [address] Referring Physician Internal Medicine 05/07/19 1 documented as of this encounter
--- OUTSIDE RECORDS SUMMARY | 2024-04-29 20:18 | XMS_ITS | Encounter Summary ---
Author Organization [facility] Address [address] [place] [address] Phone Care Team Providers Care Service Cashier Name Role Phone Isaiah Quiros MD Unavailable Isaiah Quiros MD Primary Care Provider Kumar CARRILLO MD, Cash Howard Unavailable [phone] Alex Mahajan MD Unavailable [phone] Encounter Details Date Type Department Care Team (Late st Contact Info) Description 01/07/2020 Telephone [facility] [address] [place] [address] Miriam Frye PA [address] [place] [address] Social History Tobacco Use Types Packs/Day Years Used Date Smoking Tobacco: Never Alcohol Use Standard Drinks/Week Comments No 0 (1 standard drink = 0.6 oz pur e alcohol) Comments No Sex and Gender Information Value Date Recorded Sex Assigned at Not on file Legal Sex Female 9:24 PM CARTOGRAPHIC AIDE Gender Identity Female 08/14/2022 11:32 AM CDT [...] on filedocumented in this encounter Care Teams Service Cashier Relationship Specialty Start Date End Date Isaiah Quiros MD [address] [place] [address] PCP - General Internal Medicine 04/01/17 06/02/20 Isaiah Quiros MD [address] [place] [address] Internal Medicine 02/18/17 03/19/21 Cash Heath III, MD [address] [place] [address] [place] [address] Rheumatology 04/12/17 Alex Mahajan MD [address] [place] [address] [place] [address] Referring Physician Internal Medicine 05/07/19 1 documented as of this encounter
--- OUTSIDE RECORDS SUMMARY | 2024-04-29 20:18 | XMS_ITS | Encounter Summary ---
Author Organization [facility] Address [address] [place] [address] Phone Care Team Providers Care Foundation Drill Operator Name Role Phone Isaiah Quiros MD Unavailable Isaiah Quiros MD Primary Care Provider [phone] Kumar CARRILLO MD, Cash Howard Unavailable [phone] Alex Mahajan MD Unavailable [phone] Reason for Visit * Reason Onset Date Comments González Approved 07/28/2019 Eff: 07/09/2019 - 07/08/2020 Case ID: [id number] Encounter Details Date Type Department Care Team (Late st Contact Info) Description 07/28/2019 Telephone [facility] [address] [place] [address] Tiara Rainey Approved (Eff: 07/09/2019 - 07/08/2020 Case ID: [id number] ) Social History Tobacco Use Types Packs/Day Years Used Date Smoking Tobacco: Never Alcohol Use Standard Drinks/Week Comments No 0 (1 standard drink = 0.6 oz pur e alcohol) Comments No Sex and Gender Information Value Date Recorded Sex Assigned at Not on file Legal Sex Female 9:24 PM SILVER SERVICE WAITER Gender Identity Female 08/14/2022 11:32 AM CDT [...] PA's on my desk & checked on [employer] portal. Orencia SQ was approved eff: 07/09/2019 - 07/08/2020. Case ID: [id number] Copay Assist Info: RxID: [id number] RxGRP: [id number] RxBIN: [id number]: LOYALTY Script has to go to [facility]. Left to inform pt of approval. [...] documented as of this encounter Care Teams Foundation Drill Operator Relationship Specialty Start Date End Date Isaiah Quiros MD [address] [place], [place] [address] PCP - General Internal Medicine 04/01/17 06/02/20 Isaiah Quiros MD [address] [place] [address] Internal Medicine 02/18/17 03/19/21 Cash Heath III, MD [address] [place] [address] [place], [place] [address] Rheumatology 04/12/17 Alex aMhajan MD [address] [address] [place], [place] [address] Referring Physician Internal Medicine 05/07/19 1 documented as of this encounter
--- OUTSIDE RECORDS SUMMARY | 2024-04-29 20:18 | XMS_ITS | Encounter Summary ---
Author Organization [facility] Care Team Providers Care Artificial Pearl Maker Name Role Phone Isaiah Quiros MD Unavailable Isaiah Quiros MD Primary Care Provider [phone] Kumar CARRILLO MD, Cash Howard Unavailable [phone] Encounter Details Date Type Department Care Team (Latest Contact Info) Description 04/23/2019 Travel Social History Tobacco Use Types Packs/Day Years Used Date Smoking Tobacco: Never Alcohol Use Standard Drinks/Week Comments No 0 (1 standard drink = 0.6 oz pur e alcohol) Comments No Sex and Gender Information Value Date Recorded Sex Assigned at Not on file Legal Sex Female 9:24 PM SAND SCREENER Gender Identity Female 08/14/2022 11:32 AM CDT Sexual Orientation Straight 02/13/2023 7: 01 AM CDT documented as of this encounter Plan of Treatment Not on file documented as of this encounter Visit Diagnoses Not on filedocumented in this encounter Care Teams Artificial Pearl Maker Relationship Specialty Start Date End Date Isaiah Quiros MD [address] [place] [address] PCP - General Internal Medicine 04/01/17 06/02/20 Isaiah Quiros MD [address] [place] [address] Internal Medicine 02/18/17 03/19/21 Cash Heath III, MD [address] [address] Rheumatology 04/12/17 documented as of this encounter
--- OUTSIDE RECORDS SUMMARY | 2024-04-29 20:18 | XMS_ITS | Encounter Summary ---
Author Organization [facility] Address [address] [facility] [address] [place] [address] Care Team Providers Care Tail Dogger Name Role Phone Isaiah Quiros MD Unavailable Isaiah Quiros MD Primary Care Provider [phone] Kumar CARRILLO MD, BryonNatan Unavailable [phone] Reason for Visit * Reason Comments Well Women Visit and having abdominal pain around belly button area, also some pain with intercourse Encounter Details Date Type Department Care Team (Late st Contact Info) Description 12/24/2018 11:45 AM CDT Office Visit [facility] Obstetrical Gynecology [address] [place] [address] Curtis Oseguera MD [address] [place] [address] [address] [place] [address] Well woman exam (Primary Dx); Pelvic pain Social History Tobacco Use Types Packs/Day Years Used Date Smoking Tobacco: Never Alcohol Use Standard Drinks/Week Comments No 0 (1 standard drink = 0.6 oz pur e alcohol) Comments No Sex and Gender Information Value Date Recorded Sex Assigned at Not on file Legal Sex Female 9:24 PM LOGISTICS ASSISTANT Gender Identity Female 08/14/2022 11:32 AM [...] NIL HPV neg. Last mamm: 2017 at [facility] per pt. Last colon: 2016 hemorrhoids HPI [...] PM CDT 12/25/2018 8:54 AM CDT Narrative [facility] - 12/26/2018 2:53 PM CDT [facility] Department of Pathology [address] [place], [place] [id number] Final Report with Addendum Patient Name: ??JULIAN SAUER Address: ??[address] [place] [address], ?? [place], [place] [address] Gender: ??F : ??1975 (Age: 43) Service: ??Laboratory Location: ??Lab Hospital #: ??[id number] Patient Type: ?? Ref Lab Taken: ??12/24/2018 Received: ??12/25/2018 Accessioned:: ??12/26/2018 Reported: ??12/26/2018 Physician(s): Curtis Oseguera M.D. [facility] Diagnosis: Source of Specimen: ? SCREENING [...] determined by the Surgical Pathology Department at [facility] as part of an ongoing director software quality assurance program and in compliance with federally mandated [...] characteristics determined by the Surgical Pathology Department [facility]. ??It has not been cleared or approved by the U. S. Food and Drug Administration. Curtis Oseguera MD LAB CYTOLOGY ORDERABLES Final Result [facility] [address] [place] [address], [facility] [phone] documented in this encounter Visit Diagnoses Diagnosis [...] 08/30/2021 added in this encounter Care Teams Tail Dogger Relationship Specialty Start Date End Date Isaiah Quiros MD [address] [place] [address] PCP - General Internal Medicine 04/01/17 06/02/20 Isaiah Quiros MD [address] [place] [address] Internal Medicine 02/18/17 03/19/21 Cash Heath III, MD [address] [facility] [address] [place] [address] Rheumatology 04/12/17 documented as of this encounter
--- OUTSIDE RECORDS SUMMARY | 2024-04-29 20:18 | XMS_ITS | Encounter Summary ---
Author Organization [facility] Facility Care Team Providers Care Assistant Sales Center Manager Name Role Phone Isaiah Quiros MD Unavailable Isaiah Quiros MD Primary Care Provider [phone] Kumar CARRILLO MD, Cash Howard Unavailable [phone] Encounter Details Date Type Department Care Team (Latest Contact Info) Description 12/24/2018 Travel Social History Tobacco Use Types Packs/Day Years Used Date Smoking Tobacco: Never Alcohol Use Standard Drinks/Week Comments No 0 (1 standard drink = 0.6 oz pur e alcohol) Comments No Sex and Gender Information Value Date Recorded Sex Assigned at Not on file Legal Sex Female 9:24 PM HAT LINING BLOCKER Gender Identity Female 08/14/2022 11:32 AM CDT Sexual Orientation Straight 02/13/2023 7: 01 AM CDT documented as of this encounter Plan of Treatment Not on file documented as of this encounter Visit Diagnoses Not on filedocumented in this encounter Care Teams Assistant Sales Center Manager Relationship Specialty Start Date End Date Isaiah Quiros MD [address] [place] [address] PCP - General Internal Medicine 04/01/17 06/02/20 Isaiah Quiros MD [address] [place] [address] Internal Medicine 02/18/17 03/19/21 Cash Heath III, MD [address] [address] Rheumatology 04/12/17 documented as of this encounter
--- OUTSIDE RECORDS SUMMARY | 2024-04-29 20:19 | XMS_ITS | Encounter Summary ---
Author Organization [facility] Address [address] [place] [address] Phone Care Team Providers Care Traffic Maintenance Supervisor Name Role Phone Feliciano Dash MD Primary Care Provider [phone] Reason for Visit * Reason Onset Date Comments PCP INFO 02/11/2017 PCP INFO Encounter Details Date Type Department Care Team (Late st Contact Info) Description 02/11/[address] [address] Rach Granda PCP INFO (PCP INFO) Social History Tobacco Use Types Packs/Day Years Used Date Smoking Tobacco: Never Alcohol Use Standard Drinks/Week Comments No 0 (1 standard drink = 0.6 oz pur e alcohol) Comments Unknown Sex and Gender Information Value Date Recorded Sex Assigned at Not on file Legal Sex Female 9:24 PM MECHANICAL TECHNICAL SERVICE SPECIALIST Gender Identity Female 08/14/2022 11:32 AM CDT Sexual Orientation Straight 02/13/2023 7: 01 AM CDT documented as of this encounter Miscellaneous Notes * Telephone Encounter - Rach Granda - 02/11/2017 2:40 PM CDT PCP Info: Isaiah Quiros [phone]. Faxed ov notes per pt request. documented in this encounter Plan of Treatment Not on file documented as of this encounter Visit Diagnoses Not on filedocumented in this encounter Care Teams Traffic Maintenance Supervisor Relationship Specialty Start Date End Date Feliciano Dash MD PCP - General 07/20/16 02/17/17 documented as of this encounter
--- OUTSIDE RECORDS SUMMARY | 2024-04-29 20:19 | XMS_ITS | Encounter Summary ---
Author Organization [facility] logy Address [address] [place] [address] Phone Care Team Providers Care Chief Cruiser Name Role Phone Isaiah Quiros MD Unavailable Isaiah Quiros MD Primary Care Provider [phone] Kumar CARRILLO MD, Cash Howard Unavailable [phone] Reason for Visit * Reason Onset Date Comments Enbrel Refill 09/20/2017 Encounter Details Date Type Department Care Team (Late st Contact Info) Description 09/20/2017 Telephone [employer] [employer] [address] [address] Tiara Rainey Enbrel Refill Social History Tobacco Use Types Packs/Day Years Used Date Smoking Tobacco: Never Alcohol Use Standard Drinks/Week Comments No 0 (1 standard drink = 0.6 oz pur e alcohol) Comments Unknown Sex and Gender Information Value Date Recorded Sex Assigned at Not on file Legal Sex Female 9:24 PM ELECTRICAL LOGGING ENGINEER Gender Identity Female 08/14/2022 11:32 AM [...] filedocumented in this encounter Care Teams Chief Cruiser Relationship Specialty Start Date End Date Isaiah Quiros MD [address] [place] [address] PCP - General Internal Medicine 04/01/17 06/02/20 Isaiah Quiros MD [address] [place] [address] Internal Medicine 02/18/17 03/19/21 Cash Heath III, MD [address] [place] [address] Rheumatology 04/12/17 documented as of this encounter
--- OUTSIDE RECORDS SUMMARY | 2024-04-29 20:19 | XMS_ITS | Encounter Summary ---
Author Organization [facility] Address [address] [place] [address] Care Team Providers Care Wholesaler Name Role Phone Isaiah Quiros MD Unavailable Isaiah Quiros MD Primary Care Provider [phone] Kumar CARRILLO MD, Cash Howard Unavailable [phone] Encounter Details Date Type Department Care Team (Late st Contact Info) Description 09/08/2018 12:01 AM CDT Hospital Encounter [facility] OP INTERIM Curtis Oseguera MD [facility] [address] [address] Social History Tobacco Use Types Packs/Day Years Used Date Smoking Tobacco: Never Alcohol Use Standard Drinks/Week Comments No 0 (1 standard drink = 0.6 oz pur e alcohol) Comments No Sex and Gender Information Value Date Recorded Sex Assigned at Not on file Legal Sex Female 9:24 PM DATA WAREHOUSE MANAGER Gender Identity Female 08/14/2022 11:32 AM [...] on filedocumented in this encounter Care Teams Wholesaler Relationship Specialty Start Date End Date Isaiah Quiros MD [address] [place], [place] [id number] PCP - General Internal Medicine 04/01/17 06/02/20 Isaiah Quiros MD [address] [place], [place] [id number] Internal Medicine 02/18/17 03/19/21 Cash Heath III, MD [address] [facility] 110 [place] [address] Rheumatology 04/12/17 documented as of this encounter
--- OUTSIDE RECORDS SUMMARY | 2024-04-29 20:19 | XMS_ITS | Encounter Summary ---
Author Organization [facility] logy Address [address] [place] [address] Phone Care Team Providers Care Direct Service Worker Name Role Phone Isaiah Quiros MD Unavailable Isaiah Quiros MD Primary Care Provider [phone] Kumar CARRILLO MD, John J. Unavailable [phone] Reason for Visit * Reason Comments Rheumatoid Arthritis Encounter Details Date Type Department Care Team (Late st Contact Info) Description 01/16/2018 11:15 AM CDT Office Visit [facility] [address] [address] Miriam Frye PA [address] [place] [address] Rheumatoid arthritis of multiple sites without [...] on file Legal Sex Female 9:24 PM QUALITY LAB TECHNICIAN Gender Identity Female 08/14/2022 11:32 AM [...] rate 14 < OR = 20 mm/h [facility] - Blood specimen (specimen) 01/16/2018 12:09 PM CDT 01/16/2018 12:10 PM CDT Narrative Resulting Agency Comment Performing Organization Information: ?Site ID: ?Name: [facility] ?Address: [facility] Administration [place] [address] ?Director: Bobby Mcarthur us Miriam VALLE LAB BLOOD ORDERAB LES Final Result [facility] - [place] * (ABNORMAL) CBC with auto differential (01/16/2018 12:09 PM CDT) WBC 9.0 3.8 - 10.8 Thousand/u L [facility] - RBC, POC 4.60 3.80 - 5.10 Million/uL [facility] - Hgb 12.3 11.7 - 15.5 g/dL [facility] [place] Hct 37.3 35.0 - 45.0 % [facility] [place] MCV 81.1 80.0 - 100.0 fL [facility] - MCH 26.7(L) 27.0 - [...] Comment Performing Organization Information: ?Site ID: ?Name: [facility] ?Address: [address] [place] [address] ?Director: Bobby Mcarthur us Miriam Frye PA LAB BLOOD ORDERAB LES Final Result [facility] - [place], [place] * (ABNORMAL) CRP (acute phase) (01/16/2018 12:09 PM CDT) C-RP 8.7(H) <8.0 mg/L [facility] Blood specimen (specimen) 01/16/2018 12:09 PM CDT 01/16/2018 12:10 PM CDT Narrative Resulting Agency Comment Performing Organization Information: ?Site ID: [place] ?Name: [facility] ?Address: [address] [address] ?Director: Curtis Noe D.O., MPH us Miriam VALLE LAB BLOOD ORDERAB LES Final Result [facility] [place] * (ABNORMAL) Comprehensive metabolic panel (01/16/2018 12:09 PM CDT) Glucose 122(H) 65 - 99 mg/dL [facility] - [place] Comment: ? Fasting reference interval For someone without known diabetes, a glucose value between 100 and 125 mg/dL is consistent with prediabetes and should be confirmed with a follow-up test. BUN 19 7 - 25 mg/dL [facility] [place] Creatinine 1.03 0.50 - 1.10 mg/dL [facility] [place] eGFR NON-AFR. TUNISIAN 67 > OR = 60 mL/min/1. 73m2 [facility] [place] EGFR 77 > OR = 60 mL/min/1. 73m2 [facility] [place] BUN/creat ratio NOT [...] Protein, sr 6.7 6.1 - 8.1 g/dL [facility] [place] Albumin 3.9 3.6 - 5.1 g/dL [facility] [place] GLOBULIN 2.8 1.9 - 3.7 g/dL (calc) [facility] [place] Alb/glob ratio 1.4 [...] ?Site ID: WILL[place] ?Name: Beth Sims ?Address: [address] [address] ?Director: Curtis Noe D.O., MPH us Miriam [...] syndrome documented in this encounter Care Teams Direct Service Worker Relationship Specialty Start Date End Date Isaiah Quiros MD [address] [place] [address] PCP - General Internal Medicine 04/01/17 06/02/20 Isaiah Quiros MD [address] [place] [address] Internal Medicine 02/18/17 03/19/21 Cash Heath III, MD [address] [facility] [address] [place] [address] Rheumatology 04/12/17 documented as of this encounter
--- OUTSIDE RECORDS SUMMARY | 2024-04-29 20:19 | XMS_ITS | Encounter Summary ---
Author Organization [facility] Care Team Providers Care Patternmaker All Around Name Role Phone Isaiah Quiros MD Unavailable Isaiah Quiros MD Primary Care Provider [phone] Kumar CARRILLO MD, Cash Howard Unavailable [phone] Encounter Details Date Type Department Care Team (Latest Contact Info) Description 10/27/2018 Travel Social History Tobacco Use Types Packs/Day Years Used Date Smoking Tobacco: Never Alcohol Use Standard Drinks/Week Comments No 0 (1 standard drink = 0.6 oz pur e alcohol) Comments No Sex and Gender Information Value Date Recorded Sex Assigned at Not on file 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 Gender Identity Female 08/14/2022 11:32 AM CDT Sexual Orientation Straight 02/13/2023 7: 01 AM CDT documented as of this encounter Plan of Treatment Not on file documented as of this encounter Visit Diagnoses Not on filedocumented in this encounter Care Teams Patternmaker All Around Relationship Specialty Start Date End Date Isaiah Quiros MD [address] [place] [address] PCP - General Internal Medicine 04/01/17 06/02/20 Isaiah Quiros MD [address] [place] [address] Internal Medicine 02/18/17 03/19/21 Cash Heath III, MD [address] [address] Rheumatology 04/12/17 documented as of this encounter
--- OUTSIDE RECORDS SUMMARY | 2024-04-29 20:19 | XMS_ITS | Encounter Summary ---
Author Organization [facility] logy Address [address] [place] [phone] Phone Care Team Providers Care Instructor Weaving Name Role Phone Isaiah Quiros MD Unavailable Isaiah Quiros MD Primary Care Provider [phone] Kumar CARRILLO MD, John J. 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 Gender Identity Female 08/14/2022 11:32 AM CDT [...] Comment Performing Organization Information: ?Site ID: ?Name: [id number] ?Address: [facility] Administration [place] [address] ?Director: Bobby Mcarthur Miriam VALLE LAB BLOOD ORDERAB LES Final Result [facility] - [place], [place] * (ABNORMAL) CRP (acute phase) (11/24/2018 11:34 AM CDT) C-RP 15.8(H) <8.0 mg/L [facility] [place] Blood specimen (specimen) 11/24/2018 11:34 AM CDT 11/24/2018 11:34 AM CDT Narrative Resulting Agency Comment Performing Organization Information: ?Site ID: [place] ?Name: [facility] ?Address: [address] [place] [address] [place] [address] ?Director: Curtis Noe D.O., MPH Miriam VALLE LAB BLOOD ORDERAB LES Final Result Performing Organization Address [facility]/ZIP Co de Phone Number [facility] [place] * (ABNORMAL) Comprehensive metabolic panel (11/24/2018 11:34 AM CDT) Pathologist [facility] Glucose 77 65 - 99 mg/dL [facility] [place] Comment: ? Fasting reference interval BUN 16 7 - 25 mg/dL [facility] [place] Creatinine 0.96 0.50 - 1.10 mg/dL [facility] [place] eGFR NON-AFR. CHINESE 72 > OR = 60 mL/min/1. 73m2 [...] Agency Comment Performing Organization Information: ?Site ID: [place] ?Name: [facility] ?Address: [address] [place] [address] [place] [address] ?Director: Curtis Noe D.O., MPH us Miriam VALLE LAB BLOOD ORDERAB LES Final Result [facility] [place] * (ABNORMAL) CBC with auto differential [...] Comment Performing Organization Information: ?Site ID: ?Name: [id number] ?Address: [facility] Administration [place] [address] ?Director: Bobby Mcarthur Miriam VALLE LAB BLOOD ORDERAB LES Final Result [facility] - [place] documented in [...] documented as of this encounter Care Teams Instructor Weaving Relationship Specialty Start Date End Date Isaiah Quiros MD [address] [place] [address] PCP - General Internal Medicine 04/01/17 06/02/20 Isaiah Quiros MD [address] [place] [address] Internal Medicine 02/18/17 03/19/21 Cash Heath III, MD [address] [facility] 110 [place] [address] Rheumatology 04/12/17 documented as of this encounter
--- OUTSIDE RECORDS SUMMARY | 2024-04-29 20:19 | XMS_ITS | Encounter Summary ---
Author Organization [facility] logy Address [address] [place] [phone] Phone Care Team Providers Care Wellness Guide Name Role Phone Feliciano Dash MD Primary Care Provider [phone] Reason for Visit * Reason Onset Date Comments Pharmacy [facility] 10/19/2016 Encounter Details Date Type Department Care Team (Late st Contact Info) Description 10/19/[address] [address] Rach Granda. 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 are[facility] times to contact pt for shipment. documented in this encounter Plan of Treatment Not on file documented as of this encounter Visit Diagnoses Not on filedocumented in this encounter Care Teams Wellness Guide Relationship Specialty Start Date End Date Feliciano Dash MD PCP - General 07/20/16 02/17/17 documented as of this encounter
--- OUTSIDE RECORDS SUMMARY | 2024-04-29 20:19 | XMS_ITS | Encounter Summary ---
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 Gender Identity Female 08/14/2022 11:32 AM CDT Sexual Orientation Straight 02/13/2023 7: 01 AM CDT documented as of this encounter Plan of Treatment Not on file documented as of this encounter Visit Diagnoses Not on filedocumented in this encounter Care Teams Senior Production Supervisor Relationship Specialty Start Date End Date Isaiah Quiros MD [address] [place] [address] PCP - General Internal Medicine 04/01/17 06/02/20 Isaiah Quiros MD [address] [place] [address] Internal Medicine 02/18/17 03/19/21 Cash Heath III, MD [address] [address] Rheumatology 04/12/17 documented as of this encounter
--- OUTSIDE RECORDS SUMMARY | 2024-04-29 20:19 | XMS_ITS | Encounter Summary ---
Author Organization [facility] logy Address [address] [place] [address] Phone Care Team Providers Care Surveyor Geophysical Prospecting Name Role Phone Isaiah Quiros MD Unavailable Isaiah Quiros MD Primary Care Provider Kumar CARRILLO MD, Cash Howard Unavailable [phone] Reason for Referral * Diagnostic Imaging (Routine) - Closed Specialty Diagnoses / Procedures Referred By Kaylynn phillips Referred To Contact Diagnoses Rheumatoid arthritis of multiple sites without rheumatoid factor (CMS/HCC) (HCC) Encounter for long-term (current) use of medications Procedures US Hand Complete Miriam Frye PA Phone: tel: fax: [address] [address] Referral ID Status Reason Start Date Expiration Date Visits Re quested Visits Authorized [id number] Closed 09/19/2017 03/18/2018 1 1 Reason for Visit * Diagnostic Imaging (Routine) - Closed Specialty Diagnoses / Procedures Referred By Kaylynn phillips Referred To Contact Diagnoses Rheumatoid arthritis of multiple sites without rheumatoid factor (CMS/HCC) (HCC) Encounter for long-term (current) use of medications Procedures US Hand Complete Miriam Frye PA Phone: tel: fax: [facility] 1 [place] [address] Referral ID Status Reason Start Date Expiration Date Visits Re quested Visits Authorized [id number] Closed 09/19/2017 03/18/2018 1 1 Encounter Details Date Type Department Care Team (Latest Contact Info) Description 09/30/2017 2:38 PM CDT - 09/30/2017 11:59 PM CDT Hospital Encounter [facility] [address] [place] [phone] Rheumatoid arthritis of multiple sites without [...] on file 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 Gender Identity Female 08/14/2022 11:32 AM [...] arthritis of multiple sites without rheumatoid factor (CMS/[facility]) (HCC) Encounter for long-term (current) use of medications Encounter for long-term (current) use of other medications documented in this encounter Care Teams Surveyor Geophysical Prospecting Relationship Specialty Start Date End Date sIaiah Quiros MD [address] [place] [address] PCP - General Internal Medicine 04/01/17 06/02/20 Isaiah Quiros MD [address] [place] [address] Internal Medicine 02/18/17 03/19/21 Cash Heath III, MD [address] [facility] [address] [place] [address] Rheumatology 04/12/17 documented as of this encounter
--- OUTSIDE RECORDS SUMMARY | 2024-04-29 20:19 | XMS_ITS | Encounter Summary ---
Author Organization [facility] logy Address [address] [place] [phone] Phone Care Team Providers Care Interior Design Coordinator Name Role Phone Isaiah Quiros MD Unavailable Isaiah Quiros MD Primary Care Provider [phone] Kumar CARRILLO MD, John J. 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 For additional information, please refer to https://education.Online-OR/faq/GWQ587 (This link is being provided for informational/ educational purposes only.) 09/29/2018 12:5 5 PM CDT 09/29/2018 12:56 PM CDT Narrative Resulting Agency Comment Performing Organization Information: ?Site ID: [place] ?Name: [facility] ?Address: [address] [place], [place] [address] [address] ?Director: Curtis Neo D.O., MPH us Miriam VALLE LAB BLOOD ORDERAB LES Final Result [facility] [place] * Comprehensive metabolic panel (09/29/2018 12:55 PM CDT) Glucose 76 65 - 99 mg/dL [facility] [place] Comment: ? Fasting reference interval BUN 15 7 - 25 mg/dL [facility] [place] Creatinine 0.95 0.50 - 1.10 mg/dL [facility] [place] eGFR NON-AFR. TUVALUAN 73 > OR = 60 mL/min/1. 73m2 [facility] [place] EGFR 84 > OR = 60 mL/min/1. 73m2 [facility] [place] BUN/creat ratio NOT APPLICABLE [...] Agency Comment Performing Organization Information: ?Site ID: [place] ?Name: Isabel Sims ?Address: [facility] [place] [address] ?Director: Curtis Noe D.O., MPH us Miriam [...] ?Site ID: [place] ?Name: Isabel Sims ?Address: [facility] [place] [address] ?Director: Curtis Noe D.O., TORI Miriam VALLE LAB BLOOD ORDERAB LES Final Result [facility] [place]ao documented in this encounter Visit Diagnoses Diagnosis Rheumatoid arthritis of multiple sites without rheumatoid factor ([facility]) ([facility])- Primary Encounter for long-term (current) use of [...] documented as of this encounter Care Teams Interior Design Coordinator Relationship Specialty Start Date End Date Isaiah Quiros MD [address] [place] [address] PCP - General Internal Medicine 04/01/17 06/02/20 Isaiah Quiros MD [address] [place] [address] Internal Medicine 02/18/17 03/19/21 Cash Heath III, MD [address] [facility] [address] [place] [address] Rheumatology 04/12/17 documented as of this encounter
--- OUTSIDE RECORDS SUMMARY | 2024-04-29 20:19 | XMS_ITS | Encounter Summary ---
Author Organization [facility] logy Address [address] [place] [phone] Phone Care Team Providers Care Change Management Specialist Name Role Phone Isaiah Quiros MD Unavailable Isaiah Quiros MD Primary Care Provider [phone] Kumar CARRILLO MD, Cash Howard Unavailable [phone] Reason for Visit * Reason Onset Date Comments Orencia SQ Denied 08/14/2018 Pt has to try Simponi & then Xeljanz before cold be approved Encounter Details Date Type Department Care Team (Late st Contact Info) Description 08/14/[address] [address] Tiara Raineyncia SQ Denied (Pt [...] on file 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 Gender Identity Female 08/14/2022 11:32 AM CDT Sexual Orientation Straight 02/13/2023 7: 01 AM CDT documented as of this encounter Miscellaneous Notes * Telephone Encounter - Tiara Rainey - 08/14/2018 10:41 AM CDT Spoke to Erlin @ [facility] & he said since pt has already [...] on filedocumented in this encounter Care Teams Change Management Specialist Relationship Specialty Start Date End Date Isaiah Quiros MD [address] [place] [address] PCP - General Internal Medicine 04/01/17 06/02/20 Isaiah Quiros MD [address] [place] [address] Internal Medicine 02/18/17 03/19/21 Cash Heath III, MD [address] [facility] [address] [place] [address] Rheumatology 04/12/17 documented as of this encounter
--- OUTSIDE RECORDS SUMMARY | 2024-04-29 20:19 | XMS_ITS | Encounter Summary ---
Author Organization [facility] logy Address [address] [place] [address] Phone Care Team Providers Care Weather Reporter Name Role Phone Isaiah Quiros MD Unavailable Isaiah Quiros MD Primary Care Provider [phone] Kumar CARRILLO MD, Cash Howard Unavailable [phone] Reason for Visit * Reason Onset Date Comments González VALLE Started 08/01/2018 Encounter Details Date Type Department Care Team (Late st Contact Info) Description 08/01/2018 [facility] [address] [address] Miriam Frye PA [address] [place] [address] González VALLE Started Social History Tobacco Use Types Packs/Day Years Used Date Smoking Tobacco: Never Alcohol Use Standard Drinks/Week Comments No 0 (1 standard drink = 0.6 oz pur e alcohol) Comments Unknown Sex and Gender Information Value Date Recorded Sex Assigned at Not on file 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 documented in this encounter Plan of Treatment Not on file documented as of this encounter Visit Diagnoses Not on filedocumented in this encounter Care Teams Weather Reporter Relationship Specialty Start Date End Date Isaiah Quiros MD [address] [place] [address] PCP - General Internal Medicine 04/01/17 06/02/20 Isaiah Quiros MD [address] [place] [address] Internal Medicine 02/18/17 03/19/21 Cash Heath III, MD [address] [facility] [address] [place] [address] Rheumatology 04/12/17 documented as of this encounter
--- OUTSIDE RECORDS SUMMARY | 2024-04-29 20:19 | XMS_ITS | Encounter Summary ---
Author Organization [facility] logy Address [address] [place] [phone] Phone Care Team Providers Care Commission Specialist Name Role Phone Isaiah Quiros MD Unavailable Isaiah Quiros MD Primary Care Provider [phone] Kumar CARRILLO MD, Cash Howard Unavailable [phone] Encounter Details Date Type Department Care Team (Late st Contact Info) Description 10/01/[address] [address] Tiara Rainey Social History Tobacco Use Types Packs/Day Years Used Date Smoking Tobacco: Never Alcohol Use Standard Drinks/Week Comments No 0 (1 standard drink = 0.6 oz pur e alcohol) Comments No Sex and Gender Information Value Date Recorded Sex Assigned at Not on file 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
--- OUTSIDE RECORDS SUMMARY | 2024-04-29 20:19 | XMS_ITS | Encounter Summary ---
Author Organization [facility] logy Address [address] [place] [address] Phone Care Team Providers Care Chef De Froid Name Role Phone Isaiah Quiros MD Unavailable Isaiah Quiros MD Primary Care Provider [phone] Kumar CARRILLO MD, John J. 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 ?? Do [...] may report side effects to FDA at 6-098-CNK-1088 ?? 2017 [employer] Information is for End User's use only and may not be sold, redistributed or otherwise used for commercial purposes. The above information is an civil engineer's aide only. It is not intended as [...] arthritis of multiple sites without rheumatoid factor ([facility]) (Primary) High cdai. Insurance denied sq orencia, [...] mg/dL [facility] [place] eGFR NON-AFR. MALTESE 73 > OR = 60 mL/min/1. 73m2 [...] Agency Comment Performing Organization Information: ?Site ID: [place] ?Name: [facility] ?Address: [address] [place] [address] [place] [address] ?Director: Curtis Noe D.O., MPH us Miriam [...] Agency Comment Performing Organization Information: ?Site ID: [place] ?Name: Isabel Sims ?Address: [address] [place], [place] [address] [address] ?Director: Curtis Noe D.O., MPH us Miriam [facility] LAB BLOOD ORDERAB LES Final Result [place] documented in this encounter Visit Diagnoses Diagnosis Rheumatoid arthritis of multiple sites without rheumatoid factor ([facility]/HCC) ([facility])- Primary Encounter for long-term (current) use of [...] documented as of this encounter Care Teams Chef De Froid Relationship Specialty Start Date End Date Isaiah Quiros MD [address] [place] [address] PCP - General Internal Medicine 04/01/17 06/02/20 Isaiah Quiros MD [address] [place] [address] Internal Medicine 02/18/17 03/19/21 Cash Heath III, MD [address] [facility] 110 [place] [address] Rheumatology 04/12/17 documented as of this encounter
--- OUTSIDE RECORDS SUMMARY | 2024-04-29 20:19 | XMS_ITS | Encounter Summary ---
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 ??Note is made of 5 dve-izv-wisaqry lumbar segments with a bilaterally sacralized L5 [...] CASEY MD Requesting Fax: ?? Requesting ID: [id number] Attending Fax: ?? Attending ID: ?? [id number] Completed Time: ?? 01/31/2016 2:10 PM Dictated [...] The patient is noted to have 5 gby-hno-blgtrrc lumbar segments although the L5 segment is [...] IMPRESSION: 1. Note is made of 5 rbl-nbx-vsdyygy lumbar segments with a bilaterally sacralized L5 [...] Requesting: LENY CASEY MD Requesting Requesting ID: [id number] Attending Attending ID: [id number] Completed Time: 01/31/2016 2:10 PM Dictated Time: [...] The patient is noted to have 5 aug-ltx-curliss lumbar segments although the L5 segment is [...] IMPRESSION: 1. ??Note is made of 5 pqt-wwb-wqntuxl lumbar segments with a bilaterally sacralized L5 [...] CASEY MD Requesting Fax: ?? Requesting ID: [id number] Attending Fax: ?? Attending ID: ?? [id number] Completed Time: ?? 01/31/2016 2:10 PM Dictated [...] The patient is noted to have 5 eln-xph-nmmryvi lumbar segments although the L5 segment is [...] IMPRESSION: 1. Note is made of 5 uiz-kid-colkzew lumbar segments with a bilaterally sacralized L5 [...] Requesting: LENY CASEY MD Requesting Requesting ID: [id number] Attending Attending ID: [id number] Completed Time: 01/31/2016 2:10 PM Dictated Time: [...] (HCC) documented in this encounter Care Teams Bodywork Therapist Relationship Specialty Start Date End Date Feliciano Dash MD PCP - General 07/13/15 03/07/16 documented as of this encounter
--- OUTSIDE RECORDS SUMMARY | 2024-04-29 20:19 | XMS_ITS | Encounter Summary ---
Author Organization [facility] logy Address [address] [place] [phone] Phone Care Team Providers Care Fiberglass Product Tester Name Role Phone Isaiah Quiros MD Unavailable Isaiah Quiros MD Primary Care Provider [phone] Kumar CARRILLO MD, Cash Howard Unavailable [phone] Reason for Visit * Reason Onset Date Comments González [id number] exp 08.28.19. Please schedule pa 09/08/2018 Encounter Details Date Type Department Care Team (Late st Contact Info) Description 09/08/[address] [address] Ghazala Westbrook [id number] exp 08.28.19. 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 ??Please schedule patient. documented in this encounter Plan of Treatment Not on file documented as of this encounter Visit Diagnoses Not on filedocumented in this encounter Care Teams Fiberglass Product Tester Relationship Specialty Start Date End Date Isaiah Quiros MD [address] [place] [address] PCP - General Internal Medicine 04/01/17 06/02/20 Isaiah Quiros MD [address] [place] [address] Internal Medicine 02/18/17 03/19/21 Cash Heath III, MD [address] [facility] [address] [place] [address] Rheumatology 04/12/17 documented as of this encounter
--- OUTSIDE RECORDS SUMMARY | 2024-04-29 20:19 | XMS_ITS | Encounter Summary ---
Author Organization [facility] logy Address [address] [place] [address] Phone Care Team Providers Care Mathematical Engineer Name Role Phone Isaiah Quiros MD Unavailable Isaiah Quiros MD Primary Care Provider [phone] Kumar CARRILLO MD, Cash Howard Unavailable [phone] Reason for Referral * Diagnostic Imaging (Routine) - Closed Specialty Diagnoses / Procedures Referred By Kaylynn t Referred To Contact Diagnoses Rheumatoid arthritis of multiple sites without rheumatoid factor (CMS/HCC) (HCC) Encounter for long-term (current) use of medications Procedures US Hand Complete Miriam Frye PA Phone: tel: fax: [facility] 1 [place] [address] Referral ID Status Reason Start Date Expiration Date Visits Re quested Visits Authorized [id number] Closed 09/19/2017 03/18/2018 1 1 Reason for Visit * Reason Comments Rheumatoid Arthritis Encounter Details Date Type Department Care Team (Late st Contact Info) Description 09/19/2017 3:15 PM CDT Office Visit [place] [id number] [address] Miriam Frye PA [address] [place] [address] Rheumatoid arthritis of multiple sites without rheumatoid [...] on file 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 M. tuberculosis complex infection unlikely. NIL 0.01 IU/mL [facility] [place] MITOGEN-NIL 9.86 IU/mL [facility] - [place] TB-NIL <0.00 IU/mL [facility] [place] Comment: The Nil tube value is used [...] IU/mL. For additional information, please refer to http://education.[facility]/faq/QFT (This link is being provided for informational/ educational purposes only.) Blood specimen (specimen) 09/20/2017 1:01 PM CDT 09/20/2017 1:01 PM CDT Narrative Resulting Agency Comment Performing Organization Information: ?Site ID: [place] ?Name: [facility] ?[facility] [address] [facility] [place] [address] ?Director: Curtis Noe D.O., MPH us Miriam VALLE LAB BLOOD ORDERAB LES Final Result [facility] [place] * Erythrocyte sedimentation rate (09/20/2017 1:01 PM CDT) Pathologist [facility] Erythrocyte sedimentation rate 5 < OR = 20 mm/h [facility] Blood specimen (specimen) 09/20/2017 1:01 PM CDT 09/20/2017 1:01 PM CDT Narrative Resulting Agency Comment Performing Organization Information: ?Site ID: ?[facility] ?Address: [address] [place] [address] ?Director: Bobby Mcarthur Miriam VALLE LAB BLOOD ORDERAB LES Final Result Performing Organization Address City/[facility]/ZIP Co de Phone Number [facility] [place] * CRP (acute phase) (09/20/2017 1:01 PM CDT) Pathologist [facility] C-RP 3.7 <8.0 mg/L [facility] [place] Blood specimen (specimen) 09/20/2017 1:01 PM CDT 09/20/2017 1:01 PM CDT Narrative Resulting Agency Comment Performing Organization Information: ?Site ID: [place] ?Name: [facility] ?Address: [address] [place] [address] ?Director: Curtis Noe D.O., MPH Miriam VALLE LAB BLOOD ORDERAB LES Final Result Performing Organization Address [facility] de Phone Number [facility] [place] * (ABNORMAL) CBC with auto differential (09/20/2017 1:01 PM CDT) Pathologist [facility] WBC 7.8 3.8 - 10.8 Thousand/ uL [...] Performing Organization Information: ?Site ID: ?Name: [facility] ?Address: [facility] [address] ?Director: Bobby Mcarthur us Miriam [facility] LAB BLOOD ORDERAB LES Final Result [facility] [place], [place] * Vectra(R) DA Disease Activity (09/19/2017) Blood specimen (specimen) Miriam VALLE LAB BLOOD ORDERAB LES Final Result Performing Organization Address City/[facility]/ZIP Co de Phone Number [facility] documented in this encounter Visit Diagnoses Diagnosis Rheumatoid arthritis of multiple sites without rheumatoid factor (CMS/HCC) (HCC)- Primary Encounter for long-term (current) use of medications Encounter for long-term (current) use of other medications Hypermobile joints Other joint derangement, not elsewhere classified, unspecified site Meredith-Danlos disease Meredith-Danlos syndrome documented in this encounter Care Teams Mathematical Engineer Relationship Specialty Start Date End Date Isaiah Quiros MD [address] [place] [address] PCP - General Internal Medicine 04/01/17 06/02/20 Isaiah Quiros MD [address] [place] [address] Internal Medicine 02/18/17 03/19/21 Cash Heath III, MD [address] [place] [address] Rheumatology 04/12/17 documented as of this encounter
--- OUTSIDE RECORDS SUMMARY | 2024-04-29 20:19 | XMS_ITS | Encounter Summary ---
Author Organization [facility] Facility Care Team Providers Care Front Window Cashier Name Role Phone Isaiah Quiros MD Unavailable Isaiah Quiros MD Primary Care Provider [phone] Kumar CARRILLO MD, Cash Howard Unavailable [phone] Encounter Details Date Type Department Care Team (Latest Contact Info) Description 10/13/2018 Travel Social History Tobacco Use Types Packs/Day Years Used Date Smoking Tobacco: Never Alcohol Use Standard Drinks/Week Comments No 0 (1 standard drink = 0.6 oz pur e alcohol) Comments No Sex and Gender Information Value Date Recorded Sex Assigned at Not on file 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 Gender Identity Female 08/14/2022 11:32 AM CDT Sexual Orientation Straight 02/13/2023 7: 01 AM CDT documented as of this encounter Plan of Treatment Not on file documented as of this encounter Visit Diagnoses Not on filedocumented in this encounter Care Teams Front Window Cashier Relationship Specialty Start Date End Date Isaiah Quiros MD [address] [place] [address] PCP - General Internal Medicine 04/01/17 06/02/20 Isaiah Quiros MD [address] [place] [address] Internal Medicine 02/18/17 03/19/21 Cash Heath III, MD [address] [address] Rheumatology 04/12/17 documented as of this encounter
--- OUTSIDE RECORDS SUMMARY | 2024-04-29 20:19 | XMS_ITS | Encounter Summary ---
Author Organization [facility] logy Address [address] [place] [phone] Phone Care Team Providers Care End Packer Name Role Phone Isaiah Quiros MD Unavailable Isaiah Quiros MD Primary Care Provider [phone] Kumar CARRILLO MD, Cash Howard Unavailable [phone] Encounter Details Date Type Department Care Team (Late st Contact Info) Description 10/03/2017 Telephone [place] [id number] [address] Kraig Garcia Social History Tobacco Use Types Packs/Day Years Used Date Smoking Tobacco: Never Alcohol Use Standard Drinks/Week Comments No 0 (1 standard drink = 0.6 oz pur e alcohol) Comments Unknown Sex and Gender Information Value Date Recorded Sex Assigned at Not on file 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
--- OUTSIDE RECORDS SUMMARY | 2024-04-29 20:19 | XMS_ITS | Encounter Summary ---
Author Organization [facility] logy Address [address] [place] [phone] Phone Care Team Providers Care Bingo Caller Name Role Phone Isaiah Quiros MD Unavailable Isaiah Quiros MD Primary Care Provider [phone] Kumar CARRILLO MD, Cash Howard Unavailable [phone] Reason for Visit * Reason Onset Date Comments Not Filling Enbrel Tito 04/23/2018 Encounter Details Date Type Department Care Team (Late st Contact Info) Description 04/23/[address] [address] Tiara Rainey Not Filling Enbrel Tito Social History Tobacco Use Types Packs/Day Years Used Date Smoking Tobacco: Never Alcohol Use Standard Drinks/Week Comments No 0 (1 standard drink = 0.6 oz pur e alcohol) Comments Unknown Sex and Gender Information Value Date Recorded Sex Assigned at Not on file 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 FRAME SOFTWARE DEVELOPER FRAME SOFTWARE DEVELOPER * Telephone Encounter - Miriam Frye PA - 04/23/2018 4:45 PM CST Please find out why she is not returning calls. FRAME SOFTWARE DEVELOPER * Telephone Encounter - Tiara Rainey - 04/23/2018 2:41 PM CST [facility] sent fax to report pt has not returned their calls to fill her Enbrel. If pt wants to cont treatment she can call [facility] @ [phone] FRAME SOFTWARE DEVELOPER documented in this encounter Plan of Treatment Not on file documented as of this encounter Visit Diagnoses Not on filedocumented in this encounter Care Teams Bingo Caller Relationship Specialty Start Date End Date Isaiah Quiros MD [address] [place] [address] PCP - General Internal Medicine 04/01/17 06/02/20 Isaiah Quiros MD [address] [place] [address] Internal Medicine 02/18/17 03/19/21 Cash Heath III, MD [address] [facility] [address] [place] [address] Rheumatology 04/12/17 documented as of this encounter
--- OUTSIDE RECORDS SUMMARY | 2024-04-29 20:19 | XMS_ITS | Encounter Summary ---
Author Organization [facility] Facility Care Team Providers Care Tire Service Technician Name Role Phone Isaiah Quiros MD Unavailable Isaiah Quiros MD Primary Care Provider [phone] Kumar CARRILLO MD, Cash Howard Unavailable [phone] Encounter Details Date Type Department Care Team (Latest Contact Info) Description 09/29/2018 Travel Social History Tobacco Use Types Packs/Day Years Used Date Smoking Tobacco: Never Alcohol Use Standard Drinks/Week Comments No 0 (1 standard drink = 0.6 oz pur e alcohol) Comments No Sex and Gender Information Value Date Recorded Sex Assigned at Not on file 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 Gender Identity Female 08/14/2022 11:32 AM CDT Sexual Orientation Straight 02/13/2023 7: 01 AM CDT documented as of this encounter Plan of Treatment Not on file documented as of this encounter Visit Diagnoses Not on filedocumented in this encounter Care Teams Tire Service Technician Relationship Specialty Start Date End Date Isaiah Quiros MD [address] [place] [address] PCP - General Internal Medicine 04/01/17 06/02/20 Isaiah Quiros MD [address] [place] [address] Internal Medicine 02/18/17 03/19/21 Cash Heath III, MD [address] [address] Rheumatology 04/12/17 documented as of this encounter
--- OUTSIDE RECORDS SUMMARY | 2024-04-29 20:19 | XMS_ITS | Encounter Summary ---
Author Organization [facility] logy Address [address] [place] [phone] Phone Care Team Providers Care Digital Content Manager Name Role Phone Feliciano Dash MD Primary Care Provider [phone] Reason for Visit * Reason Onset Date Comments Deena VALLE Tito 02/12/2017 Deena VALLE Tito Encounter Details Date Type Department Care Team (Late st Contact Info) Description 02/12/[address] [address] Rach Granda Tito (Deena VALLE Tito) Social History Tobacco Use Types Packs/Day Years Used Date Smoking Tobacco: Never Alcohol Use Standard Drinks/Week Comments No 0 (1 standard drink = 0.6 oz pur e alcohol) Comments Unknown Sex and Gender Information Value Date Recorded Sex Assigned at Not on file 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 documented in this encounter Plan of Treatment Not on file documented as of this encounter Visit Diagnoses Not on filedocumented in this encounter Care Teams Digital Content Manager Relationship Specialty Start Date End Date Feliciano Dash MD PCP - General 07/20/16 02/17/17 documented as of this encounter
--- OUTSIDE RECORDS SUMMARY | 2024-04-29 20:19 | XMS_ITS | Encounter Summary ---
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
--- OUTSIDE RECORDS SUMMARY | 2024-04-29 20:19 | XMS_ITS | Encounter Summary ---
Author Organization [facility] Address [address] [place] [address] Care Team Providers Care Body Finisher Name Role Phone Isaiah Quiros MD Unavailable Isaiah Quiros MD Primary Care Provider [phone] Kumar CARRILLO MD, Cash Howard Unavailable [phone] Reason for Referral * Diagnostic Lab (Routine) - Closed Specialty Diagnoses / Procedures Referred By Contmonserrat t Referred To Contact Lab Diagnoses Vaginal discharge Procedures Vaginitis - vaginosis panel Bert Oseguera MD Phone: tel: fax: Referral ID Status Reason Start Date Expiration Date Visits Re quested Visits Authorized [id number] Closed 09/08/2018 03/19/2020 1 1 Reason for Visit * Reason Comments Vaginal Discharge seemed rubbery Pelvic Pain keeps getting ovaria n cysts Encounter Details Date Type Department Care Team (Late st Contact Info) Description 09/08/2018 1:30 PM CDT Office Visit [facility] Obstetrical Gynecology [address] [facility] [address] [place] [id number] [place] [address] [place] [address] [address] [place] [address] Pelvic and perineal pain (Primary Dx); Vaginal discharge Social History Tobacco Use Types Packs/Day Years Used Date Smoking Tobacco: Never Alcohol Use Standard Drinks/Week Comments No 0 (1 standard drink = 0.6 oz pur e alcohol) Comments No Sex and Gender Information Value Date Recorded Sex Assigned at Not on file 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 Gender Identity Female 08/14/2022 11:32 [...] 6:27 PM CDT) Trichomonas vaginalis Not Detected [facility] Comment: SPECIMEN SOURCE: ?VAGINITIS/VAGINOSIS W/O PAP [...] Type 1 by RT PCR Not Detected [facility] BVAB2 by RT-PCR Not Detected [...] MD LAB PATHOLOGY ORDERABLE S Final Result [facility] * POCT WET PREP (09/08/2018 3:47 [...] 12:00 AM CDT) Tissue 09/08/2018 09/09/2018 Narrative [facility] - 09/10/2018 9:32 AM CDT [facility] Department of Pathology [address] [place] [address] ?? Final Report Patient Name: JULIAN SAUER : ??1975 (Age: 43) Gender: ??F Address: ??[address] [place] [address] ??[address] [facility] #: [id number] Service: DEFAULT Location: LAB DROP OFF Patient [...] submitted entirely in cassette A1. carmina/09/09/2018 14:55 ??LEONARD Sarmiento us Bert Oseguera MD LAB PATHOLOGY ORDER[place] [address], [facility] [phone] documented in this encounter Visit Diagnoses Diagnosis [...] 3 added in this encounter Care Teams Body Finisher Relationship Specialty Start Date End Date Isaiah Quiros MD [address] [place], [place] [id number] PCP - General Internal Medicine 04/01/17 06/02/20 Isaiah Quiros MD [address] [place] [address] Internal Medicine 02/18/17 03/19/21 Cash Heath III, MD [address] [facility] [address] [place] [address] Rheumatology 04/12/17 documented as of this encounter
--- OUTSIDE RECORDS SUMMARY | 2024-04-29 20:19 | XMS_ITS | Encounter Summary ---
Author Organization [facility] Facility Care Team Providers Care Oil Operator Name Role Phone Isaiah Quiros MD Unavailable Isaiah Quiros MD Primary Care Provider [phone] Kumar CARRILLO MD, Cash Howard Unavailable [phone] Encounter Details Date Type Department Care Team (Latest Contact Info) Description 08/14/2018 Travel Social History Tobacco Use Types Packs/Day Years Used Date Smoking Tobacco: Never Alcohol Use Standard Drinks/Week Comments No 0 (1 standard drink = 0.6 oz pur e alcohol) Comments Unknown Sex and Gender Information Value Date Recorded Sex Assigned at Not on file Legal Sex Female 9:24 PM 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 ACTRESS Gender Identity Female 08/14/2022 11:32 AM CDT Sexual Orientation Straight 02/13/2023 7: 01 AM CDT documented as of this encounter Plan of Treatment Not on file documented as of this encounter Visit Diagnoses Not on filedocumented in this encounter Care Teams Oil Operator Relationship Specialty Start Date End Date Isaiah Quiros MD [address] [place] [address] PCP - General Internal Medicine 04/01/17 06/02/20 Isaiah Quiros MD [address] [place] [address] Internal Medicine 02/18/17 03/19/21 Cash Heath III, MD [address] [address] Rheumatology 04/12/17 documented as of this encounter
--- OUTSIDE RECORDS SUMMARY | 2024-04-29 20:19 | XMS_ITS | Encounter Summary ---
Author Organization [facility] logy Address [address] [place] [phone] Phone Care Team Providers Care Certified Low Vision Therapist Name Role Phone Isaiah Quiros MD Unavailable Isaiah Quiros MD Primary Care Provider [phone] Kumar CARRILLO MD, John J. Unavailable [phone] Reason for Visit * Reason Comments Rheumatoid Arthritis Encounter Details Date Type Department Care Team (Late st Contact Info) Description 08/01/2018 11:00 AM CDT Office Visit 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 ?? There [...] may report side effects to FDA at 1-150-KAB-2666 ?? 2017 Anke Information is for End User's use only and may not be sold, redistributed or otherwise used for commercial purposes. The above information is an computer aided design drafter only. It is not intended as medical advice for individual conditions or treatments. Talk to your doctor, nurse or pharmacist before following any medical regimen to see if it is safe and effective for you. Patient Education Abatacept (By injection) Abatacept (d-MYD-d-sept) Treats moderate to severe rheumatoid arthritis (RA) [...] pharmacist before using any other medicine, including fovy-hbg-vcpmvgk medicines, vitamins, and herbal products. ?? Some [...] may report side effects to FDA at 3-619-SAC-8907 ?? 2017 Anke Information is for End User's use only and may not be sold, redistributed or otherwise used for commercial purposes. The above information is an computer aided design drafter only. It is not intended as medical [...] rate 8 < OR = 20 mm/h [employer] [facility] Blood specimen (specimen) 08/01/2018 12:00 PM CDT 08/01/2018 12:01 PM CDT Narrative Resulting Agency Comment Performing Organization Information: ?Site ID: ?Name: [facility] ?Address: [address] [place] [address] ?Director: Bobby Mcarthur Miriam VALLE LAB BLOOD ORDERAB LES Final Result [facility] [place] * CRP (acute phase) (08/01/2018 12:00 PM CDT) C-RP 3.3 <8.0 mg/L [facility] [place] Blood specimen (specimen) 08/01/2018 12:00 PM CDT 08/01/2018 12:01 PM CDT Narrative Resulting Agency Comment Performing Organization Information: ?Site ID: [place] ?Name: [facility] ?Address: [address] [place] [phone] ?Director: Curtis Noe D.O., MPH Miriam VALLE LAB BLOOD ORDERAB LES Final Result [facility] [place] * Comprehensive metabolic panel (08/01/2018 12:00 PM CDT) Glucose 70 65 - 99 mg/dL [facility] [place] Comment: ? Fasting reference interval BUN 14 7 - 25 mg/dL [facility] [place] Creatinine 0.95 0.50 - 1.10 mg/dL [facility] [place] eGFR NON-AFR. FILIPINO 73 > OR = 60 mL/min/1. 73m2 [...] Agency Comment Performing Organization Information: ?Site ID: [id number] ?Name: [facility] ?Address: [address] [place] [address] [place] [address] ?Director: Curtis Noe D.O., MPH us Miriam VALLE LAB BLOOD ORDERAB LES Final Result [facility] [place] * [...] Comment Performing Organization Information: ?Site ID: ?Name: [facility] ?Address: [facility] [place] [address] ?Director: Bobby Mcarthur us Miriam VALLE LAB BLOOD ORDERAB LES Final Result [facility] [place] documented in this [...] (Comment) documented in this encounter Care Teams Certified Low Vision Therapist Relationship Specialty Start Date End Date Isaiah Quiros MD [address] [place] [address] PCP - General Internal Medicine 04/01/17 06/02/20 Isaiah Quiros MD [address] [place] [address] Internal Medicine 02/18/17 03/19/21 Cash Heath III, MD [address] [facility] [address] [place] [address] Rheumatology 04/12/17 documented as of this encounter
--- OUTSIDE RECORDS SUMMARY | 2024-04-29 20:19 | XMS_ITS | Encounter Summary ---
Author Organization [facility] Address [address] [place] [address] Care Team Providers Care Back Tender Pulp Drier Name Role Phone Feliciano Dash MD Primary Care Provider [phone] Encounter Details Date Type Department Care Team (Late st Contact Info) Description 12/31/2016 8:56 PM CDT - 01/01/2017 5:41 AM CDT Emergency [facility] Emergency Department [address] [place] [address] Genaro Mueller MD [facility] [address] [facility] [address] [place] [address] Discharge Disposition: Discharge to home or self care Social History Tobacco Use Types Packs/Day Years Used Date Smoking Tobacco: Never Alcohol Use Standard Drinks/Week Comments No 0 (1 standard drink = 0.6 oz pur e alcohol) Comments Unknown Sex and Gender Information Value Date Recorded Sex Assigned at Not on file Legal Sex Female 9:24 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 LUIS PHELAN M.D. FINAL REPORT The radiology attending physician has personally reviewed this study, and has reviewed and/or edited this written report and agrees with it. ACC# ??Date Time ??Exam [id number] Dec 31, 2016 22:09:00 [id number] Chest 2 views Frontl ??and ??Lat ACC# ??Date Time ??Exam [id number] Dec 31, 2016 22:09:00 [id number] Chest 2 views Frontl ??and ??Lat EXAMINATION: [...] STILES M.D. on Jan 01 2017 11:21A [id number] STILES M.D. LUIS PHELAN M.D. FINAL REPORT The radiology attending physician has personally reviewed this study, and has reviewed and/or edited this written report and agrees with it. Attending: ??ERVIN, ??GENARO Requesting: ??ROSSY, ??ARA Requesting Fax: ?? Attending Fax: ?? Attending ID: ??[id number] Requesting ID: ??[id number] Report To 1 ID: ??[id number] ? Report To 1 Name: ??, ?? Report To 1 FAX: ?? NextGen Order #: ?? Procedure Note Miscellaneous, Not In File / Provider, John, - 01/01/2017 NAA STILES M.D. LUIS PHELAN M.D. FINAL REPORT The radiology attending physician has personally reviewed this study, and has reviewed and/or edited this written report and agrees with it. ACC# Date Time Exam [id number] Dec 31, 2016 22:09:00 [id number] Chest 2 views Frontl and Lat ACC# Date Time Exam [id number] Dec 31, 2016 22:09:00 [id number] Chest 2 views Frontl and Lat EXAMINATION: [...] STILES M.D. on Jan 01 2017 11:21A [id number] COHEN M.D. FINAL REPORT The radiology attending physician has personally reviewed this study, and has reviewed and/or edited this written report and agrees with it. Attending: GENARO MUELLER Requesting: ARA PETERSON Requesting Fax: Attending Fax: Attending ID: [id number] Requesting ID: [id number] Report To 1 ID: [id number] Report To 1 Name: , Report To 1 FAX: NextGen Order #: us Ara Peterson MD IMG XR PROCEDURES Final Result * hCG, Qual, Urine, POC (01/01/2017 12:46 AM CDT) HCG, ur, POC Negative [facility] Urine 01/01/2017 12:4 6 AM CDT 01/01/2017 1:35 PM CDT Ara Peterson MD LAB BLOOD ORDERABLES Final Resul t [facility] Department [place] [address] * Drug screen, urine (01/01/2017 12:41 AM CDT) Amphetamines, Class None detected [facility] Comment: Interpretive Data Immunoassay Screen cutoff level 500 ng/mL. Samples containing greater than 500 ng/mL of amphetamine/methamphetamine or other cross-reacting substances are reported as presumptive and submitted for confirmatory testing. See separate confirmatory results for final interpretation.Results are to be used for medical purposes only. ? Current interpretive data was last revised 2015. Barbiturates, Class None detected [facility] Comment: Interpretive Data Immunoassay Screen cutoff level 200 ng/mL. Samples containing greater than 200 ng/mL of barbiturates or other cross-reacting substances are reported as presumptive and submitted for confirmatory testing.See separate confirmatory results for final interpretation.Results are to be used for medical purposes only. Current interpretive data was last revised 2015. Benzodiazepines, ur None detected [facility] Comment: Interpretive Data Immunoassay Screen cutoff level 200 ng/mL. Samples containing greater than 200 ng/mL of benzodiazepines or other cross-reacting substances are reported as screen positive, but are not routinely submitted for confirmatory testing. If confirmation is required, please contact the laboratory. Results are to be used for medical purposes only. Current interpretive data was last revised 2015. Cannabinoids, Screen Positive Screen [facility] Comment: Interpretive Data Immunoassay Screen cutoff level [...] ORDERABLES Final Resul t Performing Organization Address [facility] de Phone Number [facility] [place] [address] * Hepatic function panel (01/01/2017 12:41 AM CDT) AST 21 10 - 45 Units/L [facility] ALT 29 7 - 45 Units/L [facility] Alk phos 79 40 - 130 Units/L [facility] Bilirubin, total 0.3 0.1 - 1.2 mg/dL [facility] Bilirubin, direct <0.2 0.1 - 0.3 mg/dL [facility] Protein, pl 7.9 6.5 - 8.5 g/dL [facility] Albumin 4.3 3.5 - 5.0 g/dL [facility] Blood specimen (specimen) 01/01/2017 12:41 AM CDT 01/01/2017 1:49 AM CDT us Ara Peterson MD LAB BLOOD ORDERABLES Final Resul t Performing Organization Address [facility] de Phone Number [facility] Department [place] [address] * TSH reflex to free T4 (01/01/2017 12:41 AM CDT) TSH 0.69 0.30 - 4.20 mcIUnit/mL [facility] Comment: Interpretive Data Hyperthyroid: ??<0.1 mcIUnit/mL Hypothyroid: ??>12.0 mcIUnit/mL Current interpretive data was last revised on 00. Blood specimen (specimen) 01/01/2017 12:41 AM CDT 01/01/2017 1:49 AM CDT us Ara Peterson MD LAB BLOOD ORDERABLES Final Resul t Performing Organization Address [facility] [place] [address] * Basic metabolic panel (01/01/2017 12:41 AM CDT) [facility] Sodium 141 135 - 145 mmol/L [facility] Potassium, pl 3.7 3.3 - 4.9 mmol/L [facility] Chloride 105 97 - 110 mmol/L [facility] CO2 24 22 - 32 mmol/L [facility] BUN 10 8 - 25 mg/dL [facility] Glucose 87 70 - 199 mg/dL [facility] Creatinine 0.94 0.60 - 1.10 mg/dL [facility] Calcium 9.7 8.5 - 10.3 mg/dL [facility] Anion gap 12 2 - 15 mmol/L [facility] Blood specimen (specimen) 01/01/2017 12:41 AM CDT 01/01/2017 1:49 AM CDT us Ara Peterson MD LAB BLOOD ORDERABLES Final Resul t Performing Organization Address City/[facility]/[place] [address] * Lipase (01/01/2017 12:41 AM CDT) [facility] Lipase 94 10 - 99 Units/L [facility] Blood specimen (specimen) 01/01/2017 12:41 AM CDT 01/01/2017 1:49 AM CDT us Ara Peterson MD LAB BLOOD [place] [address] * Troponin I (01/01/2017 12:41 AM CDT) [facility] Troponin I <0.03 0.00 - 0.03 ng/mL [facility] Comment: Interpretive Data Serial determinations are recommended for the diagnosis of myocardial infarction (Third Alvin Definition of Myocardial Infarction. ??J Am Robert Cardiol 2012;60:1581-98). Current interpretive data was last revised on 13. Blood specimen (specimen) 01/01/2017 12:41 AM CDT 01/01/2017 1:49 AM CDT us Ara Peterson MD LAB BLOOD ORDERABLES Edited Resu lt - Final Performing Organization Address [facility] Co de Phone Number [facility] [place] [address] * (ABNORMAL) Urinalysis, microscopic only (01/01/2017 12:41 AM CDT) RBC, ur 4(H) 0 - 3 /HPF [facility] WBC, ur 9(H) 0 - 5 /HPF [facility] Bacteria, ur Trace Trace [facility] Epithelial cells, renal, ur 0 0 - 0 /HPF [facility] Epithelial cells, squamous, ur >20 /LPF [facility] Mucus, ur Small /HPF [facility] Urine 01/01/2017 12:4 1 AM CDT 01/01/2017 1:36 AM CDT us Ara Peterson MD LAB URINE ORDERABLES Final Resul t Performing Organization Address [facility] de Phone Number [facility] [place] [address] * (ABNORMAL) Urinalysis reflex to microscopic (01/01/2017 12:41 AM CDT) Color, ur Yellow Yellow [facility] Clarity, ur Cloudy(A) Clear [facility] Specific gravity, ur 1.016 1.003 - 1.030 [facility] pH, ur 5.0 5.0 - 8.0 [facility] Albumin, ur Negative Trace [facility] Glucose, ur ql Negative Negative [facility] Ketones, ur Negative Negative [facility] Bilirubin, ur Negative Negative [facility] Blood, ur Negative Negative [facility] Urobilinogen, ur <2.0 <2.0 mg/dL [facility] Nitrites, ur Negative Negative [facility] Leukocyte esterase, ur 1+(A) Negative [facility] Urine 01/01/2017 12:4 1 AM CDT 01/01/2017 1:36 AM CDT Ara Peterson MD LAB URINE ORDERABLES Final Resul t Performing Organization Address [facility] de Phone Number [facility] Department [place] [address] * CBC without differential (01/01/2017 12:41 AM CDT) WBC 8.23 3.80 - 9.90 K/cumm [facility] RBC 5.00 3.90 - 5.20 M/cumm [facility] Hgb 14.7 11.9 - 15.5 g/dL [facility] Hct 44.4 35.6 - 45.5 % [facility] MCV 88.8 81.3 - 96.4 fL [facility] MCH 29.4 27.1 - 33.3 pg [facility] MCHC 33.1 32.3 - 35.7 g/dL [facility] RDW CV 13.3 11.1 - 14.9 % [facility] RDW SD 43.7 35.7 - 48.1 fL [facility] NRBC 0.0 0.0 - 0.2 % [facility] NRBC abs 0.00 0.00 - 0.01 K/cumm [facility] Plt 349 150 - 400 K/cumm [facility] MPV 9.7 9.1 - 12.3 fL [facility] Blood specimen (specimen) 01/01/2017 12:41 AM CDT 01/01/2017 1:48 AM CDT Ara Peterson MD LAB BLOOD ORDERABLES Final Resul t Performing Organization Address [facility] Co de Phone Number [facility] Department [place] [address] * DISCHARGE LABORATORY CUMULATIVE REPORT (01/01/2017 12:00 AM CDT) Narrative 01/01/2017 12:00 AM CDT Ordered by an unspecified provider. us Historical Provider LAB BLOOD ORDERABLES Abigail l Result documented in this encounter Visit Diagnoses Not on filedocumented in this encounter Care Teams Back Tender Pulp Drier Relationship Specialty Start Date End Date Feliciano Dash MD PCP - General 07/20/16 02/17/17 documented as of this encounter
--- OUTSIDE RECORDS SUMMARY | 2024-04-29 20:19 | XMS_ITS | Encounter Summary ---
Author Organization [facility] Facility Care Team Providers Care Assistant Dean Of Students Name Role Phone Isaiah Quiros MD Unavailable Isaiah Quiros MD Primary Care Provider [phone] Kumar CARRILLO MD, Cash Howard Unavailable [phone] Encounter Details Date Type Department Care Team (Latest Contact Info) Description 09/08/2018 Travel Social History Tobacco Use Types Packs/Day Years Used Date Smoking Tobacco: Never Alcohol Use Standard Drinks/Week Comments No 0 (1 standard drink = 0.6 oz pur e alcohol) Comments No Sex and Gender Information Value Date Recorded Sex Assigned at Not on file Legal 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 Female 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 Gender Identity Female 08/14/2022 11:32 AM CDT Sexual Orientation Straight 02/13/2023 7: 01 AM CDT documented as of this encounter Plan of Treatment Not on file documented as of this encounter Visit Diagnoses Not on filedocumented in this encounter Care Teams Assistant Dean Of Students Relationship Specialty Start Date End Date Isaiah Quiros MD [address] [place] [address] PCP - General Internal Medicine 04/01/17 06/02/20 Isaiah Quiros MD [address] [place] [address] Internal Medicine 02/18/17 03/19/21 Cash Heath III, MD [address] [address] Rheumatology 04/12/17 documented as of this encounter
--- OUTSIDE RECORDS SUMMARY | 2024-04-29 20:19 | XMS_ITS | Encounter Summary ---
Author Organization [facility] Facility Care Team Providers Care Homeland Security Program Specialist Name Role Phone Isaiah Quiros MD Unavailable Isaiah Quiros MD Primary Care Provider [phone] Kumar CARRILLO MD, Cash Howard Unavailable [phone] Encounter Details Date Type Department Care Team (Latest Contact Info) Description 10/31/2018 Travel Social History Tobacco Use Types Packs/Day Years Used Date Smoking Tobacco: Never Alcohol Use Standard Drinks/Week Comments No 0 (1 standard drink = 0.6 oz pur e alcohol) Comments No Sex and Gender Information Value Date Recorded Sex Assigned at Not on file Legal Sex Female 9:24 PM CRIMINAL LEGAL ASSISTANT Gender Identity Female 08/14/2022 11:32 AM CDT Sexual Orientation Straight 02/13/2023 7: 01 AM CDT documented as of this encounter Plan of Treatment Not on file documented as of this encounter Visit Diagnoses Not on filedocumented in this encounter Care Teams Homeland Security Program Specialist Relationship Specialty Start Date End Date Isaiah Quiros MD [address] [place] [address] PCP - General Internal Medicine 04/01/17 06/02/20 Isaiah Quiros MD [address] [place] [address] Internal Medicine 02/18/17 03/19/21 Cash Heath III, MD [address] [address] Rheumatology 04/12/17 documented as of this encounter
--- OUTSIDE RECORDS SUMMARY | 2024-04-29 20:19 | XMS_ITS | Encounter Summary ---
Author Organization [facility] logy Address [address] [place] [phone] Phone Care Team Providers Care [place] Converter Operator Name Role Phone Isaiah Quiros MD Unavailable Isaiah Quiros MD Primary Care Provider [phone] Kumar CARRILLO MD, Cash Howard Unavailable [phone] Encounter Details Date Type Department Care Team (Late st Contact Info) Description 09/08/[address] [address] Tiara Rainey Social History Tobacco Use Types Packs/Day Years Used Date Smoking Tobacco: Never Alcohol Use Standard Drinks/Week Comments No 0 (1 standard drink = 0.6 oz pur e alcohol) Comments No Sex and Gender Information Value Date Recorded Sex Assigned at Not on file Legal Sex Female 9:24 PM DIRECTOR CHILD DEVELOPMENT CENTER Gender Identity Female 08/14/2022 11:32 AM CDT [...] on filedocumented in this encounter Care Teams [place] Converter Operator Relationship Specialty Start Date End Date Isaiah Quiros MD [address] [place] [address] PCP - General Internal Medicine 04/01/17 06/02/20 Isaiah Quiros MD [address] [place] [address] Internal Medicine 02/18/17 03/19/21 Cash Heath III, MD [address] [facility] [address] [place] [address] Rheumatology 04/12/17 documented as of this encounter
--- OUTSIDE RECORDS SUMMARY | 2024-04-29 20:19 | XMS_ITS | Encounter Summary ---
Author Organization [facility] logy Address [address] [place] [phone] Phone Care Team Providers Care Fryer Line Helper Name Role Phone Isaiah Quiros MD Unavailable Isaiah Quiros MD Primary Care Provider [phone] Kumar CARRILLO MD, Cash Howard Unavailable [phone] Reason for Visit * Reason Onset Date Comments Quant Gold Order 09/26/2018 Encounter Details Date Type Department Care Team (Late st Contact Info) Description 09/26/2018 Telephone [place] [id number] [address] Nadine Zuniga Gold Order Social History Tobacco Use Types Packs/Day Years Used Date Smoking Tobacco: Never Alcohol Use Standard Drinks/Week Comments No 0 (1 standard drink = 0.6 oz pur e alcohol) Comments No Sex and Gender Information Value Date Recorded Sex Assigned at Not on file Legal Sex Female 9:24 PM SOCK LINING EXAMINER Gender Identity Female 08/14/2022 11:32 AM CDT [...] B Gold Plus, 1 Tube NEGATIVE NEGATIVE [facility] Comment: Negative test result. M. tuberculosis complex [...] T-lymphocytes. For additional information, please refer to https://education.[employer]/faq/XZA087 (This link is being provided for informational/ educational purposes only.) Blood specimen (specimen) 10/27/2018 11:39 AM CDT 10/27/2018 11:40 AM CDT Narrative [facility] - 10/29/2018 12:48 PM CDT FASTING:NO FASTING: NO Resulting Agency Comment Performing Organization Information: ?Site ID: [place] ?Name: [facility] ?Address: [id number] [id number] ?Director: Curtis Noe D.O., MPH us Miriam [facility] BLOOD ORDERAB LES Final Result [facility] [place] documented in this encounter Visit Diagnoses Diagnosis Screening-pulmonary TB- Primary Screening examination for pulmonary tuberculosis documented in this encounter Care Teams Fryer Line Helper Relationship Specialty Start Date End Date Isaiah Quiros MD [address] [place] [address] PCP - General Internal Medicine 04/01/17 06/02/20 Isaiah Quiros MD [address] [place] [address] Internal Medicine 02/18/17 03/19/21 Cash Heath III, MD [address] [facility] [address] [place] [address] Rheumatology 04/12/17 documented as of this encounter
--- OUTSIDE RECORDS SUMMARY | 2024-04-29 20:19 | XMS_ITS | Encounter Summary ---
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
--- OUTSIDE RECORDS SUMMARY | 2024-04-29 20:19 | XMS_ITS | Encounter Summary ---
Author Organization [facility] Facility Care Team Providers Care Research Project Coordinator Name Role Phone Isaiah Quiros MD Unavailable Isaiah Quiros MD Primary Care Provider [phone] Kumar CARRILLO MD, Cash Howard Unavailable [phone] Encounter Details Date Type Department Care Team (Latest Contact Info) Description 09/18/2018 Travel Social History Tobacco Use Types Packs/Day Years Used Date Smoking Tobacco: Never Alcohol Use Standard Drinks/Week Comments No 0 (1 standard drink = 0.6 oz pur e alcohol) Comments No Sex and Gender Information Value Date Recorded Sex Assigned at Not on file Legal Sex Female 9:24 PM BRAILLE TRANSCRIBER Gender Identity Female 08/14/2022 11:32 AM CDT Sexual Orientation Straight 02/13/2023 7: 01 AM CDT documented as of this encounter Plan of Treatment Not on file documented as of this encounter Visit Diagnoses Not on filedocumented in this encounter Care Teams Research Project Coordinator Relationship Specialty Start Date End Date Isaiah Quiros MD [address] [place] [address] PCP - General Internal Medicine 04/01/17 06/02/20 Isaiah Quiros MD [address] [place] [address] Internal Medicine 02/18/17 03/19/21 Cash Heath III, MD [address] [address] Rheumatology 04/12/17 documented as of this encounter
--- OUTSIDE RECORDS SUMMARY | 2024-04-29 20:19 | XMS_ITS | Encounter Summary ---
Author Organization [facility] logy Address [address] [place] [phone] Phone Care Team Providers Care Medical Anthropology Director Name Role Phone Isaiah Quiros MD Unavailable Isaiah Quiros MD Primary Care Provider [phone] Kumar CARRILLO MD, Cash Howard Unavailable [phone] Reason for Visit * Reason Onset Date Comments forgot a few things yesterday 09/20/2017 Encounter Details Date Type Department Care Team (Late st Contact Info) Description 09/20/2017 Telephone [facility] [address] [address] Tiara Rainey forgot a few things yesterday Social History Tobacco Use Types Packs/Day Years Used Date Smoking Tobacco: Never Alcohol Use Standard Drinks/Week Comments No 0 (1 standard drink = 0.6 oz pur e alcohol) Comments Unknown Sex and Gender Information Value Date Recorded Sex Assigned at Not on file Legal Sex Female 9:24 PM BANKING AND FINANCE INSTRUCTOR Gender Identity Female 08/14/2022 11:32 AM [...] on filedocumented in this encounter Care Teams Medical Anthropology Director Relationship Specialty Start Date End Date Isaiah Quiros MD [address] [place] [address] PCP - General Internal Medicine 04/01/17 06/02/20 Isaiah Quiros MD [address] [place] [address] Internal Medicine 02/18/17 03/19/21 Cash Heath III, MD [address] [facility] [address] [place] [address] Rheumatology 04/12/17 documented as of this encounter
--- OUTSIDE RECORDS SUMMARY | 2024-04-29 20:19 | XMS_ITS | Encounter Summary ---
Author Organization [facility] logy Address [address] [place] [phone] Phone Care Team Providers Care Warehouse Distribution Associate Name Role Phone Isaiah Quiros MD Unavailable Isaiah Quiros MD Primary Care Provider [phone] Kumar CARRILLO MD, Cash Howard Unavailable [phone] Encounter Details Date Type Department Care Team (Late st Contact Info) Description 10/27/2018 Telephone [place] [id number] [address] Tiara Rainey Social History Tobacco Use Types Packs/Day Years Used Date Smoking Tobacco: Never Alcohol Use Standard Drinks/Week Comments No 0 (1 standard drink = 0.6 oz pur e alcohol) Comments No Sex and Gender Information Value Date Recorded Sex Assigned at Not on file Legal Sex Female 9:24 PM DIRECTOR RELIGIOUS EDUCATION Gender Identity Female 08/14/2022 11:32 AM CDT [...] documented as of this encounter Care Teams Warehouse Distribution Associate Relationship Specialty Start Date End Date Isaiah Quiros MD [address] [place] [address] PCP - General Internal Medicine 04/01/17 06/02/20 Isaiah Quiros MD [address] [place] [address] Internal Medicine 02/18/17 03/19/21 Cash Heath III, MD [address] [facility] [address] [place] [address] Rheumatology 04/12/17 documented as of this encounter
--- OUTSIDE RECORDS SUMMARY | 2024-04-29 20:19 | XMS_ITS | Encounter Summary ---
Author Organization [facility] logy Address [address] [place] [phone] Phone Care Team Providers Care Cigar Head Stringer Name Role Phone Isaiah Quiros MD Unavailable Reason for Visit * Reason Onset Date Comments Enbrel Approval 02/18/2017 Enbrel Approval Encounter Details Date Type Department Care Team (Late st Contact Info) Description 02/18/[address] [address] Rach Granda Enbrel Approval (Enbrel Approval) Social History Tobacco Use Types Packs/Day Years Used Date Smoking Tobacco: Never Alcohol Use Standard Drinks/Week Comments No 0 (1 standard drink = 0.6 oz pur e alcohol) Comments Unknown Sex and Gender Information Value Date Recorded Sex Assigned at Not on file Legal Sex Female 9:24 PM PRODUCTION SUPPORT DEVELOPER Gender Identity Female 08/14/2022 11:32 AM [...] 02/18/2017 5:13 PM CDT Enbrel Approval caseId [id number] effective 02/12/2017-02/12/2018 RxID [id number] RxGRP [id number] RxPCN [place]. [place] documented in this encounter Plan of Treatment Not on file documented as of this encounter Visit Diagnoses Not on filedocumented in this encounter Care Teams Cigar Head Stringer Relationship Specialty Start Date End Date Isaiah Quiros MD [address] [id number] Internal Medicine 02/18/17 03/19/21 documented as of this encounter
--- OUTSIDE RECORDS SUMMARY | 2024-04-29 20:19 | XMS_ITS | Encounter Summary ---
Author Organization [facility] Facility Care Team Providers Care Director Of Ancillary Services Name Role Phone Feliciano Dash MD Primary Care Provider [phone] Encounter Details Date Type Department Care Team (Late st Contact Info) Description 02/08/2016 6:55 PM CDT - 02/08/2016 11:59 PM CDT Hospital Encounter [facility] Cash Heath III, MD [address] [address] Miriam Frye [place] [address] [place] [address] Rheumatoid arthritis of multiple sites without rheumatoid factor (CMS/HCC) Social History Tobacco Use Types Packs/Day Years Used Date Smoking Tobacco: Never Alcohol Use Standard Drinks/Week Comments No 0 (1 standard drink = 0.6 oz pur e alcohol) Comments Unknown Sex and Gender Information Value Date Recorded Sex Assigned at Not on file Legal Sex Female 9:24 PM NOC ANALYST Gender Identity Female 08/14/2022 11:32 AM [...] ORDERAB LES Final Result Performing Organization Address City/[facility]/ZIP Co de Phone Number CDR HISTORICAL RESULTS [...] (HCC) documented in this encounter Care Teams Director Of Ancillary Services Relationship Specialty Start Date End Date Feliciano Dash MD PCP - General 07/13/15 03/07/16 documented as of this encounter
--- OUTSIDE RECORDS SUMMARY | 2024-04-29 20:19 | XMS_ITS | Encounter Summary ---
Author Organization [facility] Address [address] [facility] [address] [place] [address] Care Team Providers Care Gold Plater Name Role Phone Isaiah Quiros MD Unavailable Isaiah Quiros MD Primary Care Provider [phone] Kumar CARRILLO MD, BryonNatan Unavailable [phone] Reason for Visit * Reason Onset Date Comments no script at pharm 09/09/2018 Encounter Details Date Type Department Care Team (Late st Contact Info) Description 09/09/2018 Telephone [facility] Obstetrical Gynecology [address] [facility] [address] [place] [address] Curtis Oseguera MD [address] [place] [address] [address] [place] [address] no script at pharm Social History Tobacco Use Types Packs/Day Years Used Date Smoking Tobacco: Never Alcohol Use Standard Drinks/Week Comments No 0 (1 standard drink = 0.6 oz pur e alcohol) Comments No Sex and Gender Information Value Date Recorded Sex Assigned at Not on file 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. Saturday start * Telephone Encounter - Curtis Oseguera MD - 09/09/2018 3:59 PM CDT Prescription recent to pharmacy, apologize, not sure why the initial prescription did not go through. Blaming it on new computer * Telephone Encounter - Angela Maldonado - 09/09/2018 1:28 PM CDT Pt thought she was getting birthcontrol called [facility] documented in this encounter Plan of Treatment Not on file documented as of this encounter Visit Diagnoses Not on filedocumented in this encounter Care Teams Gold Plater Relationship Specialty Start Date End Date Isaiah Quiros MD [address] [place] [address] PCP - General Internal Medicine 04/01/17 06/02/20 Isaiah Quiros MD [address] [place] [address] Internal Medicine 02/18/17 03/19/21 Cash Heath III, MD [address] [facility] [address] [place] [address] Rheumatology 04/12/17 documented as of this encounter
--- OUTSIDE RECORDS SUMMARY | 2024-04-29 20:20 | XMS_ITS | Encounter Summary ---
Author Organization [facility] Facility Care Team Providers Care Municipal Clerk Name Role Phone Unavailable Primary Care Provider Unavailabl e Encounter Details Date Type Department Care Team (Latest Contact Info) Description 03/28/2015 12:[address] RESEARCHER - 03/30/2015 12:[address] RESEARCHER Hospital Encounter [facility] Diverticulitis of intestine without perforation or abscess without bleeding; Acidosis; Abnormal results of thyroid function studies; Migraine without status migrainosus, not intractable; Thyrotoxicosis without thyroid storm; Anemia Social History Tobacco Use Types Packs/Day Years Used Date Smoking Tobacco: Never Assessed Comments Unknown Sex and Gender Information Value Date Recorded Sex Assigned at Not on file Legal Sex Female 9:[address] RESEARCHER Gender Identity Female 08/14/2022 11:32 AM CDT Sexual Orientation Straight 02/13/2023 7: 01 AM CDT documented as of this encounter Last Filed Vital Signs Vital Sign Reading Time Taken Comments Blood Pressure 123/78 03/30/2015 7:[address] RESEARCHER Pulse 72 03/30/2015 7:[address] RESEARCHER Temperature - - Respiratory Rate - - Oxygen Saturation 98% 03/30/2015 7:[address] RESEARCHER Inhaled Oxygen Concentration - - Weight 80.3 kg (176 lb 15.8 oz) 03/28/2015 1:[address] RESEARCHER Height 167.6 cm (5' 6 ) 03/28/2015 1:[address] RESEARCHER Body Mass Index 28.57 03/28/2015 1:[address] RESEARCHER documented in this encounter H&P Notes * ProviderJohn MD - 03/28/2015 12:00 AM CST Patient: JULIAN GALO Reg No: [id number] [facility] #: [id number] Admit Dt.: 03/28/2015 : 1975 Room No: 17092-78 Attending: Earle Oh M.D. Dictating: Earle Oh [...] but there was significant urgency. After attempting [id number] outpatient management of her diarrhea, persistence of [...] have travel a few months ago to [place], [place]. [place] the [place] city [...] present illness. Workup has been done at [facility] in [place]. 2. Nephrolithiasis. 3. Migraine headaches. 4. Thyroid [...] CT imaging as well as colonoscopy at [facility] within the last month including biopsies. [...] Earle Oh MD On 04/01/2015 12:[address] RESEARCHER Electronically Authenticated by: Earle Oh MD On 05/07/2015 01:[address] RESEARCHER Earle Oh M.D. MDM:[email or web address] Editing MT: [email or web address] TD: 03/28/2015 02:29 AM cc: Earle Oh M.D. documented in this encounter Plan of Treatment Not on file documented as of this encounter Procedures Procedure Name Priority Date/Time Associated Diagnosis Comments PLASMA BASIC METABOLIC PANEL Routine 03/30/2015 3:[address] RESEARCHER BLOOD CELL COUNT (CBC) Routine 5 3:[address] RESEARCHER DISCHARGE LABORATORY CUMULATIVE REPORT 03/30/2015 BLOOD GLUCOSE, POC Routine 03/29/2015 4: [address] RESEARCHER PLASMA BASIC METABOLIC PANEL Routine 03/29/2015 3:[address] RESEARCHER BLOOD CELL COUNT (CBC) Routine 5 3:[address] RESEARCHER US ABDOMEN LIMITED Routine 03/28/2015 1: [address] RESEARCHER ENTERIC PATHOGEN CULTURE, CDR Routine 03/28/2015 11:[address] ABDOMEN PELVIS W CONTRAST Routine 03/28/2015 10:[address] RESEARCHER SERUM THYROXINE (T4), FREE Routine 03/28 3:[address] RESEARCHER SERUM THYROID-STIMULATING HORMONE (TSH) Routine 03/28/2015 3:[address] RESEARCHER SERUM MAGNESIUM Routine 03/28/2015 3:[address] RESEARCHER SERUM C-REACTIVE PROTEIN Routine 015 3:[address] RESEARCHER PLASMA PROTHROMBIN TIME (PT) Routine 03/28/2015 3:[address] RESEARCHER PLASMA PHOSPHORUS Routine 03/28/2015 3:[address] RESEARCHER PLASMA PARTIAL THROMBOPLASTIN TIME (PTT) Routine 03/28/2015 3:[address] RESEARCHER PLASMA HEPATIC FUNCTION PANEL Routine 03/28/2015 3:[address] RESEARCHER PLASMA BASIC METABOLIC PANEL Routine 03/28/2015 3:[address] RESEARCHER BLOOD ERYTHROCYTE SEDIMENTATION RATE (ESR) Routine 03/28/2015 3:[address] RESEARCHER BLOOD CELL COUNT (CBC) Routine 5 3:[address] RESEARCHER CLOSTRIDIUM DIFFICILE TOXIN, CDR Routine 03/28/2015 12:[address] RESEARCHER VRE SURVEILLANCE SCREEN, CDR Routine 03/28/2015 12:[address] RESEARCHER ELECTROCARDIOGRAPHY (ECG) 03/28/2015 ALL MICROBIOLOGY REPORT SECTION Routine 03/28/2015 12:[address] RESEARCHER ALL MICROBIOLOGY REPORT SECTION Routine 03/28/2015 12:[address] RESEARCHER ALL MICROBIOLOGY REPORT SECTION Routine 03/28/2015 12:[address] RESEARCHER XR CHEST 1 VIEW Routine 03/27/2015 11:[address] RESEARCHER URINE CHORIONIC GONADOTROPIN (HCG) Routine 03/27/2015 10:[address] RESEARCHER URINE MICROSCOPY Routine 03/27/2015 6:[address] RESEARCHER SERUM LIPASE Routine 03/27/2015 6:[address] RESEARCHER PLASMA HEPATIC FUNCTION PANEL Routine 03/27/2015 6:[address] RESEARCHER PLASMA BASIC METABOLIC PANEL Routine 03/27/2015 6:[address] RESEARCHER URINALYSIS Routine 03/27/2015 6:[address] RESEARCHER BLOOD CELL COUNT (CBC) Routine 5 6:[address] RESEARCHER documented in this encounter Results * Plasma basic metabolic panel (03/30/2015 3:[address] RESEARCHER) Sodium 140 135 - 145 mmol/L HISTORICAL [...] mg/dl HISTORICAL RESULTS Plasma 03/30/2015 3:[address] RESEARCHER Manjula Youssef MD LAB BLOOD ORDERABLES Final Result Performing Organization Address [place]/[facility] Co de Phone Number HISTORICAL RESULTS * (ABNORMAL) Blood cell count (CBC) (03/30/2015 3:[address] RESEARCHER) WBC 4.7 3.8 - 9.8 K/cumm HISTORICAL [...] RESULTS Blood specimen (specimen) 03/30/2015 3:[address] RESEARCHER Manjula Youssef MD LAB BLOOD ORDERABLES Final Result HISTORICAL RESULTS * DISCHARGE LABORATORY CUMULATIVE REPORT (03/30/2015) Narrative 03/30/2015 Ordered by an unspecified provider. Historical Provider LAB BLOOD ORDERABLES Abigail l Result * Blood glucose, POC (03/29/2015 4:[address] RESEARCHER) Glucose, POC, bld 181 70 - 199 mg/dl HISTORICAL RESULTS Blood specimen (specimen) 03/29/2015 4:[address] RESEARCHER Earle Oh MD LAB BLOOD ORDERABLES Fin al Result Performing Organization Address [place]/[facility] de Phone Number HISTORICAL RESULTS * (ABNORMAL) Plasma basic metabolic panel (03/29/2015 3:[address] RESEARCHER) Sodium 140 135 - 145 mmol/L HISTORICAL [...] mg/dl HISTORICAL RESULTS Plasma 03/29/2015 3:[address] RESEARCHER Manjula Youssef MD LAB BLOOD ORDERABLES Final Result Performing Organization Address [place]/[facility] Co de Phone Number HISTORICAL RESULTS * (ABNORMAL) Blood cell count (CBC) (03/29/2015 3:[address] RESEARCHER) WBC 5.4 3.8 - 9.8 K/cumm HISTORICAL [...] RESULTS Blood specimen (specimen) 03/29/2015 3:[address] RESEARCHER us Manjula Youssef MD LAB BLOOD ORDERABLES Final Result HISTORICAL RESULTS * US Abdomen Limited (03/28/2015 1:[address] RESEARCHER) Anatomical Region Laterality Modality Abdomen N/A Ultrasound 03/28/2015 1:[address] RESEARCHER Narrative 03/28/2015 3:[address] RESEARCHER SHANAE HORNE M.D. STEFANI RODRIGUEZ M.D. FINAL REPORT The radiology attending physician has personally reviewed this study, and has reviewed and/or edited this written report and agrees with it. ACC# ??Date Time ??Exam [id number] Mar 28, 2015 13:30:00 [id number] [facility] [facility] ACC# ??Date Time ??Exam [id number] Mar 28, 2015 13:30:00 [id number] [facility] EXAMINATION: ?? LIMITED ABDOMINAL [...] agrees with it. ACC# Date Time Exam [id number] Mar 28, 2015 13:30:00 [id number] [facility] ACC# Date Time Exam [id number] Mar 28, 2015 13:30:00 [id number] [facility] EXAMINATION: LIMITED ABDOMINAL SONOGRAM [...] * Enteric pathogen culture (03/28/2015 11:[address] RESEARCHER) Stool (Unknown) 03/28/2015 1 1:[address] RESEARCHER 03/28/2015 12:[address] RESEARCHER Impressions HISTORICAL RESULTS - 03/31/2015 1:[address] RESEARCHER Organisms routinely cultured for include Salmonella, Shigella, Edwardsiella, Aeromonas, Pleisiomonas, Campylobacter, and E. coli 0157. ??Cultured only upon special request: ??Vibrio species and Yersinia species. Current Interpretive data was last revised on 06. Narrative HISTORICAL RESULTS - 03/31/2015 1:[address] RESEARCHER No growth of enteric bacterial pathogens Historical Provider LAB MICROBIOLOGY - GENERA L ORDERABLES Final Result HISTORICAL RESULTS * CT Abdomen Pelvis W Contrast (03/28/2015 10:[address] RESEARCHER) Anatomical Region Laterality Modality Body N/A Computed Tomogra phy 03/28/2015 10:[address] RESEARCHER Narrative 03/28/2015 12:[address] RESEARCHER KALIA MEZA M.D. TAVIA CHÁVEZ M.D. FINAL REPORT The radiology attending physician has personally reviewed this study, and has reviewed and/or edited this written report and agrees with it. ACC# ??Date Time ??Exam [id number] Mar 28, 2015 10:19:[id number] Abd & Pelvis with cont EXAMINATION: [...] by: KALIA MEZA M.D. on Mar 12:31P [id number] Procedure Note Provider, MD John - 08/20/2016 KALIA MEZA M.D. TAVIA CHÁVEZ M.D. FINAL REPORT The radiology attending physician has personally reviewed this study, and has reviewed and/or edited this written report and agrees with it. ACC# Date Time Exam [id number] Mar 28, 2015 10:19:[id number] Abd & Pelvis with cont EXAMINATION: [...] MEZA M.D. on Mar 28 2015 12:31P [id number] Historical Provider IMG CT PROCEDURES Final R esult * (ABNORMAL) Serum thyroid-stimulating hormone (TSH) (03/28/2015 3:[address] RESEARCHER) TSH 0.05(L) 0.35 - 5.50 mcIUnits/ ml HISTORICAL RESULTS Comment: Interpretive Data Hyperthyroid: ??<0.1 mcIUnit/mL Hypothyroid: ??>12.0 mcIUnit/mL Current interpretive data was last revised on 00. Serum 03/28/2015 3:[address] RESEARCHER Earle Oh MD LAB BLOOD ORDERABLES Fin al Result Performing Organization Address [place]/[facility] de Phone Number HISTORICAL RESULTS * (ABNORMAL) Plasma hepatic function panel (03/28/2015 3:[address] RESEARCHER) Protein, pl 5.9(L) 6.5 - 8.5 g/dl HISTORICAL RESULTS Alb 3.4(L) 3.6 - 5.0 g/dl HISTORICAL RESULTS Bilirubin 0.3 0.3 - 1.1 mg/dl HISTORICAL RESULTS Bilirubin, direct 0.1 0.0 - 0.3 mg/dl HISTORICAL RESULTS Alk phos 54 38 - 126 Units/L HISTORICAL RESULTS AST 14 11 - 47 Units/L HISTORICAL RESULTS ALT 20 7 - 53 Units/L HISTORICAL RESULTS Plasma 03/28/2015 3:[address] RESEARCHER Earle Oh MD LAB BLOOD ORDERABLES Fin al Result HISTORICAL RESULTS * Serum C-reactive protein (03/28/2015 3:[address] RESEARCHER) C-RP 7.2 0.0 - 9.9 mg/L HISTORICAL RESULTS Serum 03/28/2015 3:[address] RESEARCHER Earle Oh MD LAB BLOOD ORDERABLES Fin al Result Performing Organization Address [place] de Phone Number HISTORICAL RESULTS * Plasma partial thromboplastin time (PTT) (03/28/2015 3:[address] RESEARCHER) Pathologist [facility] APTT 30.7 25.0 - 37.0 seconds HISTORICAL RESULTS Comment: Interpretive Data Therapeutic heparin range:60.0 - 94.0 sec based on correlation with therapeutic heparin activity range of 0.3 -0.7 Units/mL. Current interpretive data was last revised on 2011. Plasma 03/28/2015 3:[address] RESEARCHER Earle Oh MD LAB BLOOD ORDERABLES Fin al Result Performing Organization Address [place]/[facility] de Phone Number HISTORICAL RESULTS * (ABNORMAL) Plasma basic metabolic panel (03/28/2015 3:[address] RESEARCHER) Pathologist [facility] Sodium 142 135 - 145 mmol/L HISTORICAL [...] mg/dl HISTORICAL RESULTS Plasma 03/28/2015 3:[address] RESEARCHER Earle Oh MD LAB BLOOD ORDERABLES Fin al Result Performing Organization Address [place] de Phone Number HISTORICAL RESULTS * Plasma phosphorus (03/28/2015 3:[address] RESEARCHER) Phosphorus, pl 3.1 2.3 - 4.3 mg/dl HISTORICAL RESULTS Plasma 03/28/2015 3:[address] RESEARCHER Earle Oh MD LAB BLOOD ORDERABLES Fin al Result Performing Organization Address [place] de Phone Number HISTORICAL RESULTS * Plasma prothrombin time (PT) (03/28/2015 3:[address] RESEARCHER) Prothrombin time (PT) 11.7 9.2 - 13.0 [...] updated copy of the Tool Book at http://intramed.[facility] [place]/[facility]/pharmacy.nsf Current Interpretive Data was last revised 2011. Plasma 03/28/2015 3:[address] RESEARCHER Earle hO MD LAB BLOOD ORDERABLES Fin al Result Performing Organization Address [place]/[facility] de Phone Number HISTORICAL RESULTS * Serum magnesium (03/28/2015 3:[address] RESEARCHER) Magnesium 1.8 1.4 - 2.5 mg/dl HISTORICAL RESULTS Serum 03/28/2015 3:[address] RESEARCHER Earle Oh MD LAB BLOOD ORDERABLES Fin al Result Performing Organization Address [facility] Co de Phone Number HISTORICAL RESULTS * Serum thyroxine (T4), free (03/28/2015 3:[address] RESEARCHER) Free T4 0.99 0.90 - 1.80 ng/dl HISTORICAL RESULTS Serum 03/28/2015 3:[address] RESEARCHER Earle Oh MD LAB BLOOD ORDERABLES Fin al Result Performing Organization Address [place]/[facility] de Phone Number HISTORICAL RESULTS * (ABNORMAL) Blood cell count (CBC) (03/28/2015 3:[address] RESEARCHER) WBC 7.2 3.8 - 9.8 K/cumm HISTORICAL [...] RESULTS Blood specimen (specimen) 03/28/2015 3:[address] RESEARCHER Earle Oh MD LAB BLOOD ORDERABLES Fin al Result Performing Organization Address [facility] Phone Number HISTORICAL RESULTS * Blood erythrocyte sedimentation rate (ESR) (03/28/2015 3:[address] RESEARCHER) Pathologist [facility] Erythrocyte sedimentation rate 8.0 0.0 - 25.0 mm/hr HISTORICAL RESULTS Blood specimen (specimen) 03/28/2015 3:[address] RESEARCHER Earle Oh MD LAB BLOOD ORDERABLES Fin al Result Performing Organization Address [facility] Phone Number HISTORICAL RESULTS * Clostridium difficile toxin (03/28/2015 12:[address] RESEARCHER) Stool (Unknown) 03/28/2015 1 2:[address] RESEARCHER 03/28/2015 12:[address] RESEARCHER Narrative HISTORICAL RESULTS - 03/29/2015 6:[address] RESEARCHER Negative for: Clostridium difficile toxin. Result [facility] Historical Provider LAB MICROBIOLOGY - GENERA L ORDERABLES Final Result Performing Organization Address [facility] Phone Number HISTORICAL RESULTS * Vancomycin-resistant enterococcus (VRE) surveillance screen (03/28/2015 12:[address] RESEARCHER) Stool (Unknown) 03/28/2015 1 2:[address] RESEARCHER 03/29/2015 6:[address] RESEARCHER Impressions HISTORICAL RESULTS - 03/31/2015 10:[address] RESEARCHER This test is for Infection prevention surveillance; no charge to patient. Current interpretive data was last revised on 2011. Narrative HISTORICAL RESULTS - 03/31/2015 10:[address] RESEARCHER Negative Historical Provider LAB MICROBIOLOGY - GENERA L ORDERABLES Final Result Performing Organization Address [place]/[facility] Phone Number HISTORICAL RESULTS * All Microbiology Report Section (03/28/2015 12:[address] RESEARCHER) 03/28/2015 Narrative HISTORICAL RESULTS - 03/31/2015 1:[address] RESEARCHER ? [facility] [facility] [address] ? Patient Name: ??JULIAN GALO ? Med Rec Number: [id number] ? Fin Number: ?[id number] ? Date: ?1975 ? Sex/Age: ? Female 39 years ? Admit Date: ?03/28/2015 ? Discharge Date: 03/30/2015 ? Doctor: ?Medicine , ? Facility: ?[facility] ? Location: ?[phone] [id number] ?* Abnormal ??A Alert ??f Footnote [...] All Microbiology Report Section (03/28/2015 12:[address] RESEARCHER) 03/28/2015 Narrative HISTORICAL RESULTS - 03/31/2015 3:[address] RESEARCHER ? [facility] ?[place] [address] ? Patient Name: ??JULIAN GALO ? Med Rec Number: [id number] ? Fin Number: ?[id number] ? Date: ?1975 ? Sex/Age: ? Female 39 years ? Admit Date: ?03/28/2015 ? Discharge Date: 03/30/2015 ? Doctor: ?Medicine , ? Facility: ?[facility] ? Location: ?[phone] [id number] ?* Abnormal ??A Alert ??f Footnote [...] All Microbiology Report Section (03/28/2015 12:[address] RESEARCHER) 03/28/2015 Narrative HISTORICAL RESULTS - 03/30/2015 3:[address] RESEARCHER ? [facility] ?[place] [address] ? Patient Name: ??JULIAN GALO ? Med Rec Number: [id number] ? Fin Number: ?[id number] ? Date: ?1975 ? Sex/Age: ? Female 39 years ? Admit Date: ?03/28/2015 ? Discharge Date: 03/30/2015 ? Doctor: ?Medicine , ? Facility: ?[facility] ? Location: ?[phone] 01 ?* Abnormal ??A Alert ??f Footnote [...] XR Chest 1 View (03/27/2015 11:[address] RESEARCHER) Anatomical Region Laterality Modality Body, Chest N/A Radiographic Smita ging 03/27/2015 11:[address] RESEARCHER Narrative 03/28/2015 9:[address] RESEARCHER Salvador MARSHALL M.D. FINAL REPORT The radiology attending physician has personally reviewed this study, and has reviewed and/or edited this written report and agrees with it. ACC# ??Date Time ??Exam [id number] Mar 27, 2015 23:25:00 [id number] Chest 1 view Frontal EXAMINATION: ?? Chest 1 view IMPRESSION: ?? Comparison study dated 03/02/2010. The lungs are clear. There is no confluent airspace opacity, pleural effusion or pneumothorax. The cardiomediastinal silhouette is normal. Requested By: LULU POLANCO M.D. Dictated By: ?? LUNA KUNZ M.D. ??on Mar ??2014 11:31P This document has been electronically signed by: VERONIQUE MANNING M.D. on Mar ??2014 ??9:34A [id number] Procedure Note Provider, MD John - 08/20/2016 Salvador MARSHALL M.D. FINAL REPORT The radiology attending physician has personally reviewed this study, and has reviewed and/or edited this written report and agrees with it. ACC# Date Time Exam [id number] Mar 27, 2015 23:25:00 [id number] Chest 1 view Frontal EXAMINATION: Chest 1 view IMPRESSION: Comparison study dated 03/02/2010. The lungs are clear. There is no confluent airspace opacity, pleural effusion or pneumothorax. The cardiomediastinal silhouette is normal. Requested By: LULU POLANCO M.D. Dictated By: LUNA KUNZ M.D. on Mar 27 2015 11:31P This document has been electronically signed by: VERONIQUE MANNING M.D. on Mar 28 2015 9:34A [id number] us Historical Provider IMG XR PROCEDURES Final R esult * Urine chorionic gonadotropin (HCG) (03/27/2015 10:[address] RESEARCHER) HCG, ur Negative HISTORICAL RESULTS Urine 03/27/2015 10:[address] RESEARCHER us Erlin Simental MD LAB BLOOD ORDERABLES Final Res ult HISTORICAL RESULTS * (ABNORMAL) Urinalysis (03/27/2015 6:[address] RESEARCHER) Protein, ur 1+(A) Trace HISTORIC AL RESULTS [...] Negative HISTORICAL RESULTS Urine 03/27/2015 6:[address] RESEARCHER Erlin Simental MD LAB BLOOD ORDERABLES Final Res ult Performing Organization Address [place]/[facility] de Phone Number HISTORICAL RESULTS * (ABNORMAL) Urine microscopy (03/27/2015 6:[address] RESEARCHER) RBC, ur 9(H) 0 - 3 /hpf HISTORICA L RESULTS WBC, ur 2 0 - 5 /hpf HISTORICA L RESULTS Bacteria, ur Negative Trace HISTORI ESTELLE RESULTS Epithelial cells, renal, ur 0 0 - 0 /hpf HISTORICAL RESULTS Epithelial cells, squamous, ur >20 /lpf HISTORICAL RESULTS Mucus, ur Small /hpf HISTORICAL RESULTS Urine 03/27/2015 6:[address] RESEARCHER Erlin Simental MD LAB BLOOD ORDERABLES Final Res ult Performing Organization Address [place] de Phone Number HISTORICAL RESULTS * Plasma hepatic function panel (03/27/2015 6:[address] RESEARCHER) Protein, pl 7.9 6.5 - 8.5 g/dl HISTORICAL RESULTS Alb 4.2 3.6 - 5.0 g/dl HISTORICAL RESULTS Bilirubin 0.4 0.3 - 1.1 mg/dl HISTORICAL RESULTS Bilirubin, direct 0.1 0.0 - 0.3 mg/dl HISTORICAL RESULTS Alk phos 72 38 - 126 Units/L HISTORICAL RESULTS AST 20 11 - 47 Units/L HISTORICAL RESULTS ALT 31 7 - 53 Units/L HISTORICAL RESULTS Plasma 03/27/2015 6:[address] RESEARCHER Result [facility] Erlin Simental MD LAB BLOOD ORDERABLES Final Res t Performing Organization Address [facility] de Phone Number HISTORICAL RESULTS * (ABNORMAL) Plasma basic metabolic panel (03/27/2015 6:[address] RESEARCHER) Sodium 139 135 - 145 mmol/L HISTORICAL [...] mg/dl HISTORICAL RESULTS Plasma 03/27/2015 6:[address] RESEARCHER Result [facility] Erlin Simental MD LAB BLOOD ORDERABLES Final Res t Performing Organization Address [facility] de Phone Number HISTORICAL RESULTS * (ABNORMAL) Serum lipase (03/27/2015 6:[address] RESEARCHER) Lip 186(H) 0 - 99 Units/L HISTORICAL RESULTS Serum 03/27/2015 6:[address] RESEARCHER Result [facility] Erlin Simental MD LAB BLOOD ORDERABLES Final Res t Performing Organization Address [facility] de Phone Number HISTORICAL RESULTS * (ABNORMAL) Blood cell count (CBC) (03/27/2015 6:[address] RESEARCHER) WBC 12.5(H) 3.8 - 9.8 K/cumm HISTORICAL [...] RESULTS Blood specimen (specimen) 03/27/2015 6:[address] RESEARCHER us Erlin Simental MD LAB BLOOD ORDERABLES [...]
--- OUTSIDE RECORDS SUMMARY | 2024-04-29 20:20 | XMS_ITS | Encounter Summary ---
Author Organization [facility] Facility Care Team Providers Care Tester Armature Or Fields Name Role Phone Unavailable Primary Care Provider Unavailabl e Encounter Details Date Type Department Care Team (Late st Contact Info) Description 11/24/2014 5:38 PM CDT - 11/24/2014 11:05 PM CDT Hospital Encounter [facility] Hari Gross MD [address] [place] [address] Urinary tract infection; Calculus of kidney; Tobacco use disorder; Encounter for long-term (current) use of other medications Social History Tobacco Use Types Packs/Day Years Used Date Smoking Tobacco: Never Assessed Comments Unknown Sex and Gender Information Value Date Recorded Sex Assigned at Not on file Legal Sex Female 9:24 PM HOME HEALTH LVN Gender Identity Female 08/14/2022 11:32 AM CDT [...] BLOOD ORDERABLES Final Result Performing Organization Address City/[facility] Co de Phone Number HISTORICAL RESULTS * [...] BLOOD ORDERABLES Final Result Performing Organization Address City/[facility]/ZIP Co de Phone Number HISTORICAL RESULTS [...] BLOOD ORDERABLES Final Result Performing Organization Address [facility] de Phone Number HISTORICAL RESULTS * [...] BLOOD ORDERABLES Final Result Performing Organization Address [facility] de Phone Number HISTORICAL RESULTS * Urine (aerobic) culture (11/24/2014 7:22 PM CDT) Urine (Unknown) 11/24/2014 7 :22 PM CDT 11/24/2014 8:13 PM CDT Narrative HISTORICAL RESULTS - 11/26/2014 10:23 AM CDT Insignificant growth based on current clinical standards. Historical Provider LAB MICROBIOLOGY - GENERA L ORDERABLES Final Result Performing Organization Address [facility] de Phone Number HISTORICAL RESULTS * All Microbiology Report Section (11/24/2014 12:00 AM CDT) 11/24/2014 Narrative HISTORICAL RESULTS - 11/26/2014 1:36 PM CDT ? [facility] ?[facility] [place] ?[place], [place] [address] ? Patient Name: ??JULIAN GALO ? Med Rec Number: [id number] ? Fin Number: ?[id number] ? Date: ?1975 ? Sex/Age: ? Female 39 years ? Admit Date: ?11/24/2014 ? Discharge Date: 11/24/2014 ? Doctor: ?Hari Niño ? Facility: ?[facility] ? Location: ?EM-[id number] ?* Abnormal ??A [...]
--- OUTSIDE RECORDS SUMMARY | 2024-04-29 20:20 | XMS_ITS | Encounter Summary ---
Author Organization [facility] Healthcare Address [address] [place] [address] Care Team Providers Care Naturopath Name Role Phone Unavailable Primary Care Provider Unavailabl e Encounter Details Date Type Department Care Team (Latest Contact Info) Description 10/06/2012 3:04 PM CDT - 10/06/2012 10:13 PM CDT Hospital Encounter [facility] Marcia Bermeo MD [address] [place] [address] Calculus of kidney Social History Tobacco Use Types Packs/Day Years Used Date Smoking Tobacco: Never Assessed Comments Unknown Sex and Gender Information Value Date Recorded Sex Assigned at Not on file Legal 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 Gender Identity Female 08/14/2022 11:32 AM CDT [...] - 60 U/L 10/22/2012 6:07 PM CDT [facility] HISTORICAL RESULTS 10/06/2012 7:05 PM CDT 10/22/2012 8:58 AM CDT Historical Provider LAB BLOOD ORDERABLES Abigail l Result [facility] HISTORICAL RESULTS * (ABNORMAL) Amylase (10/06/2012 7:05 PM CDT) Amylase 123(H) 28 - 100 U/L 10/22/2012 6:07 PM CDT [facility] HISTORICAL RESULTS 10/06/2012 7:05 PM CDT 10/22/2012 8:58 AM CDT Historical Provider LAB BLOOD ORDERABLES Abigail l Result [facility] HISTORICAL RESULTS * Comprehensive metabolic panel (10/06/2012 7:05 PM CDT) [facility] Sodium 139 135 - 145 mmol/L Potassium 3.7 3.3 - 5.1 mmol/L Chloride 106 96 - 108 mmol/L Carbon Dioxide 22 22 - 32 mmol/L Anion Gap 11 Glucose 87 70 - 110 mg/dL BUN 16 6 - 20 mg/dL Creatinine 0.7 0.5 - 1.1 mg/dL Kidney Disease Stage > 90 mL/MIN Comment: NOTE; ??The GFR is an [...] @ Calcium 2.35 2.15 - 2.55 mmol/L Total Protein 7.8 6.4 - 8.4 g/dL 10/22/2012 6:07 PM T [facility] HISTORICAL RESULTS Albumin 4.9 3.5 - 5.2 g/dL Globulin 2.9 2.3 - 3.5 gm/dL 10/22/2012 6:07 PM T [facility] HISTORICAL RESULTS Albumin/Globulin Ratio 1.7 1.1 - 1.8 10/22/2012 6:07 PM T [facility] HISTORICAL RESULTS Total Bilirubin 0.2 0.0 - 1.2 mg/dL 10/22/2012 6:07 PM T [facility] HISTORICAL RESULTS AST 13 0 - 32 U/L ALT 15 0 - 31 U/L Alkaline Phosphatase 68 35 - 104 U/L 10/06/2012 7:05 PM CDT 10/22/2012 8:58 AM CDT us Historical Provider LAB BLOOD ORDERABLES Abigail wahl Result [facility] HISTORICAL RESULTS * (ABNORMAL) CBC with auto differential (10/06/2012 7:05 PM CDT) WBC 8.1 4.6 - 10.2 x10 3/ul 10/16/2012 8:55 AM T [facility] HISTORICAL RESULTS RBC 4.88(H) 3.76 - 4.80 x10 6/ul 10/16/2012 8:55 AM T [facility] HISTORICAL RESULTS Hemoglobin 14.4 11.0 - 15.0 g/dl 10/16/2012 8:55 AM T [facility] HISTORICAL RESULTS Hct 43.0 33.0 - 43.0 % MCV 88.1 80.0 - 97.0 fl MCH 29.5 27.0 - 31.2 pg MCHC 33.5 31.8 - 35.4 g/dl Plt Count 292 124 - 400 x10 3/ul Differential Method AUTOMATED DIFF --------- -- Neut % 42.2 37.0 - 85.0 % Immature Gran % 0.4 0.0 - 3.0 % Lymph % 49.3(H) 5.0 - 45.0 % Peñuelas % 5.2 3.0 - 15.0 % Eos % 1.7 0.0 - 7.0 % Baso % 1.2 0.0 - 2.0 % ABSOLUTE COUNTS ABSOLUTE COUNTS --------- -- Absolute Neuts (auto) 3.4 1.7 - 8.7 x10 3/ul Immature Gran # 0.0 0.0 - 0.3 x10 3/ul Absolute Lymphs (auto) 4.0 0.2 - 4.6 x10 3/ul Absolute Monos (auto) 0.4 0.1 - 1.5 x10 3/ul 10/16/2012 8:55 AM [id number] Absolute Eos (auto) 0.1 0.0 - 0.7 x10 3/ul 10/16/2012 8:55 AM T [facility] HISTORICAL RESULTS Absolute Basos (auto) 0.1 0.0 - 0.2 x10 3/ul 10/16/2012 8:55 AM T [facility] HISTORICAL RESULTS 10/06/2012 7:05 PM CDT 10/16/2012 8:53 AM CDT Narrative [facility] HISTORICAL RESULTS - 10/16/2012 8:55 AM CDT DOWNTIME DATA RECOVERY AND RE-ENTRY ?? BY LAB:[id number] 10/16/12 by: Myla Parker us Historical Provider LAB BLOOD ORDERABLES Abigail wahl Result [facility] HISTORICAL RESULTS * (ABNORMAL) Urinalysis reflex to microscopic and culture (10/06/2012 5:40 PM CDT) Ur Collection Type CLEAN CATCH Ur Culture Indicated? C&S INDICATED Comment:Culture report to karlo lombardi. Urine Color YELLOW YELLOW Urine Clarity HAZY CLEAR Urine Glucose (UA) NORMAL NORMAL mg/dL Urine Bilirubin NEGATIVE NEGATIVE mg/dl Urine Ketones NEGATIVE NEGATIVE mg/dL Ur Specific Sidney 1.017 1.005 - 1.025 Urine Blood NEGATIVE NEGATIVE Marcelo/ul Urine pH 5.5 5.0 - 8.0 Urine Protein NEGATIVE NEGATIVE mg/dL 10/17/2012 3:16 PM CDT [facility] HISTORICAL RESULTS Urine Urobilinogen NORMAL NORMAL mg/dL 10/17/2012 3:16 PM T [facility] HISTORICAL RESULTS Urine Nitrite NEGATIVE NEGATIVE 10/17/2012 3:16 PM T [facility] HISTORICAL RESULTS Ur Leukocyte Esterase 75(H) NEGATIVE Andrey/ul 10/17/2012 3:16 PM T [facility] HISTORICAL RESULTS Ur Microscopic Review Indicated or Ordered 10/17/2012 3:16 PM T [facility] HISTORICAL RESULTS Urine RBC 4 0 - 2 /HPF 10/17/2012 3:16 PM T [facility] HISTORICAL RESULTS Urine WBC 6 0 - 2 /HPF 10/17/2012 3:16 PM CDT [facility] HISTORICAL RESULTS Urine Bacteria RARE /HPF 10/17/2012 3:16 PM CDT [facility] HISTORICAL RESULTS Urine Mucus RARE /LPF 10/17/2012 3:16 PM T [facility] HISTORICAL RESULTS Ur Squamous Epith Cells FEW /LPF 10/17/2012 3:16 PM T [facility] HISTORICAL RESULTS Calcium Oxalate Crystal RARE /HPF 10/17/2012 3:16 PM CDT [facility] HISTORICAL RESULTS 10/06/2012 5:40 PM CDT 10/17/2012 1:54 PM CDT us Historical Provider LAB MICROBIOLOGY - GENERA L ORDERABLES Final Result [facility] HISTORICAL RESULTS * Microbiology Specimen Report (Converted) (10/06/2012 5:10 PM CDT) 10/06/2012 5:10 PM CDT 10/16/2012 9:02 AM CDT Narrative [facility] HISTORICAL RESULTS - 10/06/2012 5:10 PM CDT Microbiology Specimen Report (Converted) SPECIMEN [id number] ?? COLLECTED: 2012-10-06 17:10:00 ER ?? REQ#: [id number] REQUESTING DR: No Personal Physician ?? SOURCE: URINE ?? SP DESC: VOIDED --- PROCEDURE --- ?--- RESULT --- ?? CULTURE URINE ??(Final) ??- ??Performed at [facility] ? Nature of growth suggests contamination ? at the time of collection, or a delay in ? transport of specimen to the laboratory. ? Please recollect if clinically indicated. ? - [facility] ? [address] ? [place] [address] ? Hari Spain MD Procedure Note 07/12/2018 Microbiology Specimen Report (Converted) SPECIMEN [id number] COLLECTED: 2012-10-06 17:10:00 ER REQ#:[id number] REQUESTING DR: No Personal Physician SOURCE: URINE SP DESC: VOIDED --- PROCEDURE --- --- RESULT --- CULTURE URINE (Final) - Performed at [facility] Nature of growth suggests contamination at the time of collection, or a delay in transport of specimen to the laboratory. Please recollect if clinically indicated. - [address] [address] Hari Spain MD us Historical Provider LAB BLOOD ORDERABLES Abigail wahl Result [facility] HISTORICAL RESULTS documented in this encounter Visit Diagnoses Diagnosis Calculus of kidney documented in this encounter
--- OUTSIDE RECORDS SUMMARY | 2024-04-29 20:20 | XMS_ITS | Encounter Summary ---
Author Organization [facility] Facility Care Team Providers Care Sample Maker Hand Name Role Phone Unavailable Primary Care Provider Unavailabl e Encounter Details Date Type Department Care Team (Late st Contact Info) Description 09/09/2014 - 09/09/2014 11:59 PM CDT Hospital Encounter [facility] Sienna Chand MD [address] 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 [facility] ? Department of Laboratories ? [address] [facility] ? [place] ?[place] [address] ?MARIN ??Division ??Urologic ?Surgery ? CAM 11-C Patient Name: ? GALO, JULIAN M Med Rec Number: ?? [id number] Date of : ?1975 Gender/Age: ? Female [...] ORDERABLES Abigail l Result Performing Organization Address City/[facility] Co de Phone Number HISTORICAL RESULTS [...] L ORDERABLES Final Result Performing Organization Address [facility] Co de Phone Number HISTORICAL RESULTS * All Microbiology Report Section (09/09/2014 12:00 AM CDT) 09/09/2014 Narrative HISTORICAL RESULTS - 09/10/2014 4:49 PM CDT ? [facility] ?[facility] ?[place] [address] ? Patient Name: ??JULIAN GALO ? Med Rec Number: [id number] ? Fin Number: ?[id number] ? Date: ?1975 ? Sex/Age: ? Female [...]
--- OUTSIDE RECORDS SUMMARY | 2024-04-29 20:20 | XMS_ITS | Encounter Summary ---
Author Organization [facility] Facility Care Team Providers Care Glass Forming Crew Member Name Role Phone Unavailable Primary Care Provider Unavailabl e Encounter Details Date Type Department Care Team (Late st Contact Info) Description 05/03/2015 3:51 PM MECHANICAL SYSTEM TECHNICIAN - 05/03/2015 8:45 PM MECHANICAL SYSTEM TECHNICIAN Hospital Encounter [facility] Janeth Haynes, DIRECTOR OF ACQUISITION MARKETING [phone] [place] [address] Gastro-esophageal reflux disease without esophagitis; Diarrhea; Osteoarthritis; Calculus of kidney; Other residential (current) drug therapy; Personal history of other diseases of the digestive system Social History Tobacco Use Types Packs/Day Years Used Date Smoking Tobacco: Never Assessed Comments Unknown Sex and Gender Information Value Date Recorded Sex Assigned at Not on file Legal Sex Female 9:24 PM MECHANICAL SYSTEM TECHNICIAN Gender Identity Female 08/14/2022 11:32 AM CDT Sexual Orientation Straight 02/13/2023 7: 01 AM CDT documented as of this encounter Plan of Treatment Not on file documented as of this encounter Procedures Procedure Name Priority Date/Time Associated Diagnosis Comments US ABDOMEN LIMITED Routine 05/03/2015 6: 32 PM MECHANICAL SYSTEM TECHNICIAN URINE MICROSCOPY Routine 05/03/2015 4:23 PM MECHANICAL SYSTEM TECHNICIAN URINALYSIS Routine 05/03/2015 4:23 PM MECHANICAL SYSTEM TECHNICIAN SERUM LIPASE Routine 05/03/2015 4:06 PM MECHANICAL SYSTEM TECHNICIAN PLASMA HEPATIC FUNCTION PANEL Routine 05/03/2015 4:06 PM MECHANICAL SYSTEM TECHNICIAN PLASMA BASIC METABOLIC PANEL Routine 05/03/2015 4:06 PM MECHANICAL SYSTEM TECHNICIAN BLOOD CELL COUNT (CBC) Routine 05/03/2015 4:06 PM MECHANICAL SYSTEM TECHNICIAN DISCHARGE LABORATORY CUMULATIVE REPORT 05/03/2015 documented in this encounter Results * US Abdomen Limited (05/03/2015 6:32 PM MECHANICAL SYSTEM TECHNICIAN) Anatomical Region Laterality Modality Abdomen N/A Ultrasound 05/03/2015 6:32 PM MECHANICAL SYSTEM TECHNICIAN Narrative 05/04/2015 6:56 PM MECHANICAL SYSTEM TECHNICIAN BENJI RICHARDS M.D. CINTHIA SEN M.D. FINAL REPORT The radiology attending physician has personally reviewed this study, and has reviewed and/or edited this written report and agrees with it. ACC# ??Date Time ??Exam [id number] May 03, 2015 18:32:00 [id number] [employer] EXAMINATION: ?? LIMITED ABDOMINAL [...] agrees with it. ACC# Date Time Exam [id number] May 03, 2015 18:32:00 [id number] [employer] EXAMINATION: LIMITED ABDOMINAL SONOGRAM [...] esult * (ABNORMAL) Urinalysis (05/03/2015 4:23 PM MECHANICAL SYSTEM TECHNICIAN) Color, ur Yellow Yellow HISTORICAL RESULTS Clarity, [...] Negative HISTORICAL RESULTS Urine 05/03/2015 4:23 PM MECHANICAL SYSTEM TECHNICIAN Erlin Simental MD LAB BLOOD ORDERABLES Final Res ult HISTORICAL RESULTS * (ABNORMAL) Urine microscopy (05/03/2015 4:23 PM MECHANICAL SYSTEM TECHNICIAN) RBC, ur 7(H) 0 - 3 /hpf HISTORICA L RESULTS WBC, ur 6(H) 0 - 5 /hpf HISTORICA L RESULTS Bacteria, ur Trace Trace HISTORI ESTELLE RESULTS Epithelial cells, renal, ur 0 0 - 0 /hpf HISTORICAL RESULTS Epithelial cells, squamous, ur >20 /lpf HISTORICAL RESULTS Mucus, ur Small /hpf HISTORICAL RESULTS Urine 05/03/2015 4:23 PM MECHANICAL SYSTEM TECHNICIAN Result [facility] Erlin Simental MD LAB BLOOD ORDERABLES Final [facility] Performing Organization Address [facility] de Phone Number HISTORICAL RESULTS * (ABNORMAL) Plasma hepatic function panel (05/03/2015 4:06 PM MECHANICAL SYSTEM TECHNICIAN) Pathologist [facility] Protein, pl 7.7 6.5 - 8.5 g/dl HISTORICAL RESULTS Alb 4.4 3.6 - 5.0 g/dl HISTORICAL RESULTS Bilirubin 0.2(L) 0.3 - 1.1 mg/dl HISTORICAL RESULTS Alk phos 82 38 - 126 Units/L HISTORICAL RESULTS AST 22 11 - 47 Units/L HISTORICAL RESULTS ALT 40 7 - 53 Units/L HISTORICAL RESULTS Bilirubin, direct <0.1 0.0 - 0.3 mg/dl HISTORICAL RESULTS Plasma 05/03/2015 4:06 PM MECHANICAL SYSTEM TECHNICIAN Result [facility] Erlin Simental MD LAB BLOOD ORDERABLES Final [facility] Performing Organization Address [facility] de Phone Number HISTORICAL RESULTS * (ABNORMAL) Plasma basic metabolic panel (05/03/2015 4:06 PM MECHANICAL SYSTEM TECHNICIAN) Pathologist [facility] Sodium 141 135 - 145 mmol/L HISTORICAL [...] mg/dl HISTORICAL RESULTS Plasma 05/03/2015 4:06 PM MECHANICAL SYSTEM TECHNICIAN Erlin Simental MD LAB BLOOD ORDERABLES Final Res ult HISTORICAL RESULTS * (ABNORMAL) Serum lipase (05/03/2015 4:06 PM MECHANICAL SYSTEM TECHNICIAN) Lip 126(H) 0 - 99 Units/L HISTORICAL RESULTS Serum 05/03/2015 4:06 PM MECHANICAL SYSTEM TECHNICIAN Erlin Simental MD LAB BLOOD ORDERABLES Final Res ult Performing Organization Address [facility] Co de Phone Number HISTORICAL RESULTS * (ABNORMAL) Blood cell count (CBC) (05/03/2015 4:06 PM MECHANICAL SYSTEM TECHNICIAN) WBC 7.7 3.8 - 9.8 K/cumm HISTORICAL [...] RESULTS Blood specimen (specimen) 05/03/2015 4:06 PM MECHANICAL SYSTEM TECHNICIAN us Erlin Simental MD LAB BLOOD ORDERABLES Final Res ult HISTORICAL RESULTS * DISCHARGE LABORATORY CUMULATIVE REPORT (05/03/2015) Narrative 05/03/2015 Ordered by an unspecified provider. Historical Provider LAB BLOOD ORDERABLES Abigail l Result documented in this encounter Visit Diagnoses Diagnosis Gastro-esophageal reflux disease without esophagitis Diarrhea Osteoarthritis Osteoarthrosis, unspecified whether generalized or localized, unspecified site Calculus of kidney Other ferry terminal agent (current) drug therapy Personal history of other diseases of the digestive system documented in this encounter
--- OUTSIDE RECORDS SUMMARY | 2024-04-29 20:20 | XMS_ITS | Encounter Summary ---
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 de Phone Number HISTORICAL RESULTS * Plasma C-reactive protein (09/16/2015 9:30 AM CDT) [facility] C-RP 2.7 0.00 - 10.00 mg/L HISTORICAL RESULTS Plasma 09/16/2015 9:30 AM CDT Miriam VALLE LAB BLOOD ORDERAB LES Final Result Performing Organization Address [facility] Phone Number HISTORICAL RESULTS * Plasma lipase (09/16/2015 9:30 AM CDT) [facility] Lip 42 8 - 57 Units/L HISTORICAL RESULTS Plasma 09/16/2015 9:30 AM CDT Miriam VALLE LAB BLOOD ORDERAB LES Final Result Performing Organization Address [facility] Number HISTORICAL RESULTS * (ABNORMAL) Plasma amylase (09/16/2015 9:30 AM CDT) [facility] [address], [address](H) 28 - 100 IUnits/L HISTORICAL RESULTS Plasma 09/16/2015 9:30 AM CDT Miriam VALLE LAB BLOOD ORDERAB LES Final Result Performing Organization Address [facility] Phone Number HISTORICAL RESULTS * (ABNORMAL) Urinalysis (09/16/2015 9:30 AM CDT) [facility] Color, ur Yellow Colorless,St raw,Yellow HISTORICAL RESULTS [...] RESULTS - 09/17/2015 1:34 PM CDT ? [facility] Laboratory Microbiology ?[address] ??[place], [place] ??[address] ? Tele: ? Vik Stephenson M.D. - Technology Assistant - Tyrese Zambrano - ? Bankruptcy Processor ?? Patient: JULIAN GALO ? Admission #: ??[id number] ?? : 1975 ?Location: Laboratory ?? Gender: [...] = = = = = ? Physician: ?[facility] Microbiology Report-[employer] ? us Historical Provider LAB [...] enzymes documented in this encounter Care Teams Credit Analyst Relationship Specialty Start Date End Date Feliciano Dash MD PCP - General 07/13/15 03/07/16 documented as of this encounter
--- OUTSIDE RECORDS SUMMARY | 2024-04-29 20:20 | XMS_ITS | Encounter Summary ---
Author Organization [facility] Facility Care Team Providers Care Metal Sorter Name Role Phone Unavailable Primary Care Provider Unavailabl e Encounter Details Date Type Department Care Team (Late st Contact Info) Description 12/06/2014 - 12/06/2014 11:59 PM CDT Hospital Encounter [facility] Shelley Albrecht Calculus of kidney Social History Tobacco Use Types Packs/Day Years Used Date Smoking Tobacco: Never Assessed Comments Unknown Sex and Gender Information Value Date Recorded Sex Assigned at Not on file Legal Sex Female 9:24 PM 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 Historical Provider LAB BLOOD ORDERABLES Abigail l Result * All Microbiology Report Section (12/06/2014 12:00 AM CDT) 12/06/2014 Narrative HISTORICAL RESULTS - 12/08/2014 1:09 PM CDT ? [facility] ?[address] [facility] [address] ?[place], [place] [address] ? Patient Name: ??JULIAN GALO ? Med Rec Number: [id number] ? Fin Number: ?[id number] ? Date: ?1975 ? Sex/Age: ? Female [...]
--- OUTSIDE RECORDS SUMMARY | 2024-04-29 20:20 | XMS_ITS | Encounter Summary ---
Author Organization [facility] Healthcare Address [address] [place] [address] Care Team Providers Care First Aid Attendant Name Role Phone Unavailable Primary Care Provider Unavailabl e Encounter Details Date Type Department Care Team (Latest Contact Info) Description 01/04/2014 6:53 PM CDT - 01/04/2014 9:02 PM CDT Hospital Encounter [facility] Effusion of lower leg joint; Localized osteoarthrosis, lower leg Social History Tobacco Use Types Packs/Day Years Used Date Smoking Tobacco: Never Assessed Comments Unknown Sex and Gender Information Value Date Recorded Sex Assigned at Not on file Legal Sex Female 9:24 PM TECHNOLOGY TRAINER Gender Identity Female 08/14/2022 11:32 AM [...]
--- OUTSIDE RECORDS SUMMARY | 2024-04-29 20:20 | XMS_ITS | Encounter Summary ---
Author Organization [facility] Facility Care Team Providers Care Duct Layer Name Role Phone Unavailable Primary Care Provider Unavailabl e Encounter Details Date Type Department Care Team (Late st Contact Info) Description 02/23/2011 8:22 AM CDT - 02/23/2011 3:43 PM CDT Hospital Encounter [facility] Dakotah Malik MD [address] [facility] [id number] [place] [address] Disturbance of skin sensation; Dizziness and giddiness Social History Tobacco Use Types Packs/Day Years Used Date Smoking Tobacco: Never Assessed Comments Unknown Sex and Gender Information Value Date Recorded Sex Assigned at Not on file Legal Sex Female 9:24 PM HEARING AID SPECIALIST Gender Identity Female 08/14/2022 11:32 AM CDT Sexual Orientation Straight 02/13/2023 7: 01 AM CDT documented as of this encounter Plan of Treatment Not on file documented as of this encounter Visit Diagnoses Diagnosis Disturbance of skin sensation Dizziness and giddiness documented in this encounter
--- OUTSIDE RECORDS SUMMARY | 2024-04-29 20:20 | XMS_ITS | Encounter Summary ---
Author Organization [facility] Facility Care Team Providers Care Strategic Account Director Name Role Phone Unavailable Primary Care Provider Unavailabl e Encounter Details Date Type Department Care Team (Late st Contact Info) Description 06/27/2015 2:07 PM PROGRAM WRITER - 06/27/2015 10:01 PM [facility] Aristeo Alicea MD PhD [address] [place] [address] Pain of left hand; Pain of right hand; Pain in left ankle; Pain in right ankle; Effusion of left hand; Effusion of right hand; Effusion of left foot; Effusion of right foot; Other shelter (current) drug therapy; Cigarette nicotine dependence, uncomplicated Social History Tobacco Use Types Packs/Day Years Used Date Smoking Tobacco: Never Assessed Comments Unknown Sex and Gender Information Value Date Recorded Sex Assigned at Not on file Legal Sex Female 9:24 PM PROGRAM WRITER Gender Identity Female 08/14/2022 11:32 AM CDT [...] left foot Effusion of right foot Other salvage determiner (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
--- OUTSIDE RECORDS SUMMARY | 2024-04-29 20:20 | XMS_ITS | Encounter Summary ---
Author Organization [facility] Address [address] [place] [address] Care Team Providers Care Timing Machine Operator Name Role Phone Unavailable Primary Care Provider Unavailabl e Encounter Details Date Type Department Care Team (Late st Contact Info) Description 01/16/2013 6:28 PM CDT - 01/16/2013 8:10 PM CDT Hospital Encounter [facility] Hari Hanson MD [address] [place] [address] Contusion of foot; Striking against or struck accidentally by other stationary object without subsequent fall Social History Tobacco Use Types Packs/Day Years Used Date Smoking Tobacco: Never Assessed Comments Unknown Sex and Gender Information Value Date Recorded Sex Assigned at Not on file Legal Sex Female 9:24 PM SAND TECHNICIAN Gender Identity Female 08/14/2022 11:32 AM [...] Laterality Modality Lower Extremities, Foot Left [facility] 01/16/2013 Impressions 01/16/2013 7:33 PM CDT [...]
--- OUTSIDE RECORDS SUMMARY | 2024-04-29 20:20 | XMS_ITS | Encounter Summary ---
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 Social History Tobacco Use Types Packs/Day Years Used Date Smoking Tobacco: Never Alcohol Use Standard Drinks/Week Comments No 0 (1 standard drink = 0.6 oz pur e alcohol) Comments Unknown Sex and Gender Information Value Date Recorded Sex Assigned at Not on file 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 Gender Identity Female 08/14/2022 11:32 AM CDT [...] Urine Ketones NEGATIVE NEGATIVE mg/dL Ur Specific [place] 1.018 1.005 - 1.025 Urine Blood NEGATIVE [...] Mucus RARE /LPF 10/02/2015 8:14 PM CDT [facility] HIST[facility]ICAL RES[facility] Ur Squamous Epith Cells Rare /HPF 10/02/2015 8:14 PM CDT [facility] HISTORICAL RESULTS 10/02/2015 7:30 PM CDT 10/02/2015 7:56 PM CDT Narrative [facility] HISTORICAL RESULTS - 10/02/2015 8:14 PM CDT Nadine Avila MUNICIPAL SERVICES MANAGER LAB MICROBIOLOGY - GENERA L ORDERABLES Final Result [facility] HISTORICAL RESULTS * CBC with auto differential (10/02/2015 6:53 PM CDT) WBC 8.1 4.6 - 10.2 x10 3/ul 10/02/2015 7:17 PM CDT [facility] HISTORICAL RESULTS Comment:Results Reviewed RBC 4.66 3.76 - 4.80 x10 6/ul 10/02/2015 7:17 PM CDT [facility] HISTORICAL RESULTS Hemoglobin 13.1 11.0 - 15.0 g/dl 10/02/2015 7:17 PM CDT [facility] HISTORICAL RESULTS Hct 40.3 33.0 - 43.0 % 10/02/2015 7:17 PM CDT [facility] HISTORICAL RESULTS MCV 86.5 80.0 - 97.0 fl 10/02/2015 7:17 PM CDT [facility] HISTORICAL RESULTS MCH 28.1 27.0 - 31.2 pg 10/02/2015 7:17 PM CDT [facility] HISTORICAL RESULTS MCHC 32.5 31.8 - 35.4 g/dl 10/02/2015 7:17 PM CDT [facility] HISTORICAL RESULTS RDW 14.2 11.6 - 14.8 % 10/02/2015 7:17 PM CDT [facility] HISTORICAL RESULTS Plt Count 301 124 - 400 x10 3/ul 10/02/2015 7:17 PM CDT [facility] HISTORICAL RESULTS MPV 9.4 7.4 - 10.4 fl 10/02/2015 7:17 PM T [facility] HISTORICAL RESULTS Differential Method AUTOMATED DIFF --------- -- Neut % 60.5 37.0 - 85.0 % Immature Gran % 0.5 0.0 - 3.0 % Lymph % 32.3 5.0 - 45.0 % Leon % 4.7 3.0 - 15.0 % Eos [...] ORDERABLES Fin al Result Performing Organization Address [facility] Co de Phone Number [facility] HIST[facility]ICAL RESULTS * Protime-INR (10/02/2015 5:59 PM CDT) Pathologist [facility] PT 11.8 11.8 - 14.5 SECONDS 10/02/2015 6:19 PM CDT [facility] HISTORICAL RESULTS INR 0.86 0.01 - 5.99 10/02/2015 6:19 PM CDT [facility] HISTORICAL RESULTS Comment: Recommended Therapeutic range for [...] ORDERABLES Abigail l Result Performing Organization Address [facility] de Phone Number [facility] HISTORICAL RESULTS * aPTT (10/02/2015 5:59 PM CDT) Pathologist [facility] APTT 27 26 - 33 SECONDS 10/02/2015 6:20 PM CDT [facility] HISTORICAL RESULTS 10/02/2015 5:59 PM CDT 10/02/2015 6:03 PM CDT Nadine Avila NP LAB BLOOD ORDERABLES Abigail l Result Performing Organization Address [facility] de Phone Number [facility] HISTORICAL RESULTS * (ABNORMAL) Lipase (10/02/2015 5:59 PM CDT) Pathologist [facility] Lipase 108(H) 13 - 60 U/L 10/02/2015 6:35 PM CDT [facility] HISTORICAL RESULTS 10/02/2015 5:59 PM CDT 10/02/2015 6:03 PM CDT Nadine Avila MUNICIPAL SERVICES MANAGER LAB BLOOD ORDERABLES Abigail wahl Result [facility] HISTORICAL RESULTS * (ABNORMAL) Comprehensive metabolic panel (10/02/2015 5:59 PM CDT) Pathologist [facility] Sodium 141 135 - 145 mmol/L 10/02/2015 6:35 PM T [facility] HISTORICAL RESULTS Potassium 4.2 3.3 - 5.1 mmol/L Comment: HEMOLYZED: Hemolysis interferes with the above test. ?? SLIGHT VISIBLE HEMOLYSIS Chloride 109(H) 96 - 108 mmol/L Carbon Dioxide 18(L) 22 - 32 mmol/L 10/02/2015 6:35 PM T [facility] HISTORICAL RESULTS Anion Gap 14 7 - 16 10/02/2015 6:35 PM T [facility] HISTORICAL RESULTS Glucose 89 70 - 100 [...] GFR (Cockcroft-G) 86 ml/MIN 10/02/2015 6:35 PM [facility] Calcium 8.8 8.6 - 10.0 mg/dL 10/02/2015 6:35 PM [facility] [employer] [facility] Total Protein 7.2 6.4 - 8.3 g/dL 10/02/2015 6:35 PM [facility] HIST[facility] RESULTS Albumin 4.3 3.5 - 5.2 g/dL 10/02/2015 6:35 PM [facility] [employer] [facility] RES[facility] Globulin 2.9 2.3 - 3.5 gm/dL 10/02/2015 6:35 PM [facility] HIST[facility] RESULTS Albumin/Globulin Ratio 1.5 1.1 - 1.8 10/02/2015 6:35 PM [facility] [employer] [facility] RES[facility] Total Bilirubin < 0.2 0.0 - 1.2 mg/dL 10/02/2015 6:35 PM [facility] HIST[facility] RESULTS AST 21 0 - 32 U/L 10/02/2015 6:36 PM [facility] [employer] [facility] Comment: HEMOLYZED: Hemolysis interferes with the above test. ?? SLIGHT VISIBLE HEMOLYSIS ALT 16 0 - 33 U/L 10/02/2015 6:36 PM [facility] [employer] [facility] Comment: HEMOLYZED: Hemolysis interferes with the above test. ?? SLIGHT VISIBLE HEMOLYSIS Alkaline Phosphatase 63 35 - 104 U/L 10/02/2015 6:35 PM [facility] HIST[facility] RESULTS 10/02/2015 5:59 PM CDT 10/02/2015 6:03 PM CDT us Nadine Castromelinda Avila MUNICIPAL SERVICES MANAGER LAB BLOOD ORDERABLES Abigail wahl Result [facility] HISTORICAL RESULTS * US Pelvis W Endovaginal [...] Joe M.D. MD: 07:24 PM 07:24 PM [facility] [[facility]] Narrative 10/02/2015 7:28 PM CDT EXAMINATION: [...] Joe M.D. MD: 07:24 PM 07:24 PM [facility] [[facility]] us Nadine Lynette Avila NP IMG [...] Joe M.D. MD: 08:41 PM 08:41 PM [facility] [[facility]] Narrative 10/02/2015 8:45 PM CDT EXAMINATION: [...] Joe M.D. : 08:41 PM 08:41 PM [facility] [[facility]] Julito Buenrostro MD IM CT PROCEDURES Final Result documented in this encounter Visit Diagnoses Diagnosis Abdominal pain Abdominal pain, unspecified site Liver disease Unspecified disorder of liver Calculus of kidney Ovarian cyst Other and unspecified ovarian cyst Diverticulosis of intestine without perforation or abscess without bleeding Other fdc (current) drug therapy documented in this encounter Care Teams Butter Melter Relationship Specialty Start Date End Date Feliciano Dash MD PCP - General 07/13/15 03/07/16 documented as of this encounter
--- OUTSIDE RECORDS SUMMARY | 2024-04-29 20:20 | XMS_ITS | Encounter Summary ---
Author Organization [facility] Address [address] [place] [address] Care Team Providers Care Afterschool Babysitter Name Role Phone Feliciano Dash MD Primary Care Provider [phone] Encounter Details Date Type Department Care Team (Latest Contact Info) Description 09/30/2015 9:17 AM CDT Hospital Encounter [facility] OP Curtis Oseguera MD [address] [facility] [address] [address] Ovarian cyst; Encounter for preprocedural laboratory examination Social History Tobacco Use Types Packs/Day Years Used Date Smoking Tobacco: Never Alcohol Use Standard Drinks/Week Comments No 0 (1 standard drink = 0.6 oz pur e alcohol) Comments Unknown Sex and Gender Information Value Date Recorded Sex Assigned at Not on file 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 Gender Identity Female 08/14/2022 11:32 AM [...] - 4.20 uIU/mL 09/30/2015 11:58 AM CDT [facility] [employer] HISTORICAL RESULTS Free T4 1.26 0.93 - 1.70 ng/dL 09/30/2015 11:58 AM CDT [facility] [employer] HISTORICAL RESULTS 09/30/2015 10:3 5 AM CDT 09/30/2015 11:11 AM CDT Curtis Oseguera MD LAB BLOOD ORDERABLES [facility] Result [facility] HISTORICAL RESULTS * (ABNORMAL) CBC with auto differential (09/30/2015 10:35 AM CDT) WBC 6.2 4.6 - 10.2 x10 3/ul 09/30/2015 11:17 AM CDT [facility] [place] [facility] HISTORICAL RESULTS RBC 4.98(H) 3.76 - 4.80 x10 6/ul 09/30/2015 11:17 AM CDT [facility] [place]NOTE 2][employer] HISTORICAL RESULTS Hemoglobin 14.1 11.0 - 15.0 g/dl Hct 43.0 33.0 - 43.0 % MCV 86.3 80.0 - 97.0 fl MCH 28.3 27.0 - 31.2 pg 09/30/2015 11:17 AM [facility] MCHC 32.8 31.8 - 35.4 g/dl 09/30/2015 11:17 AM [facility] RDW 14.2 11.6 - 14.8 % 09/30/2015 11:17 AM [facility] Plt Count 318 124 - 400 x10 3/ul 09/30/2015 11:17 AM [facility] MPV 9.3 7.4 - 10.4 fl 09/30/2015 11:17 AM [facility] Differential Method AUTOMATED DIFF --------- -- 09/30/2015 11:17 AM [facility] Neut % 59.7 37.0 - 85.0 % 09/30/2015 11:17 AM [facility] Immature Gran % 0.5 0.0 - 3.0 % 09/30/2015 11:17 AM [facility] Lymph % 30.9 5.0 - 45.0 % 09/30/2015 11:17 AM [employer] [facility] [place]NOTE 2[facility] HISTORICAL RESULTS [place] % 6.6 3.0 - 15.0 % 09/30/2015 11:17 AM [facility] Eos % 1.0 0.0 - 7.0 % 09/30/2015 11:17 AM [employer] [facility] [place]NOTE 2][employer] HISTORICAL RESULTS Baso % 1.3 0.0 - 2.0 % 09/30/2015 11:17 AM [facility] ABSOLUTE COUNTS ABSOLUTE COUNTS --------- -- 09/30/2015 11:17 AM [facility] Absolute Neuts (auto) 3.7 1.7 - 8.7 x10 3/ul 09/30/2015 11:17 AM [employer] [facility] Immature Gran # 0.0 0.0 - 0.3 x10 3/ul Absolute Lymphs (auto) 1.9 0.2 - 4.6 x10 3/ul Absolute Monos (auto) 0.4 0.1 - 1.5 x10 3/ul Absolute Eos (auto) 0.1 0.0 - 0.7 x10 3/ul Absolute Basos (auto) 0.1 0.0 - 0.2 x10 3/ul 09/30/2015 10:3 5 AM CDT 09/30/2015 11:11 AM CDT Curtis Oseguera MD LAB BLOOD ORDERABLES [facility] Result [facility] HISTORICAL RESULTS * hCG, blood, quantitative (09/30/2015 10:35 AM CDT) Beta HCG, Quant < 0.1 0.0 - 1.0 mIU/mL Comment: Weeks of preg ?BHCG ? Weeks [...] ORDERABLES Fi nal Result Performing Organization Address City/State/[facility] Co de Phone Number [facility] [place] 2[facility] HISTORICAL RESULTS documented in this encounter Visit Diagnoses Diagnosis Ovarian cyst Other and unspecified ovarian cyst Encounter for preprocedural laboratory examination documented in this encounter Care Teams Afterschool Babysitter Relationship Specialty Start Date End Date Feliciano Dash MD PCP - General 07/13/15 03/07/16 documented as of this encounter
--- OUTSIDE RECORDS SUMMARY | 2024-04-29 20:20 | XMS_ITS | Encounter Summary ---
Author Organization [facility] Address [address] [place] [address] Care Team Providers Care Signal Timer Name Role Phone Feliciano Dash MD Primary Care Provider [phone] Encounter Details Date Type Department Care Team (Late st Contact Info) Description 09/08/2015 8:02 AM CDT Hospital Encounter [facility] OP Curtis Oseguera MD [address] [facility] [address] [address] Ovarian cyst Social History Tobacco Use Types Packs/Day Years Used Date Smoking Tobacco: Never Alcohol Use Standard Drinks/Week Comments No 0 (1 standard drink = 0.6 oz pur e alcohol) Comments Unknown Sex and Gender Information Value Date Recorded Sex Assigned at Not on file 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 ?? Genaro Blanc M.D. [place] 05:20 PM 05:20 PM [facility] [[facility]] Narrative 09/08/2015 5:24 PM CDT [...] PM: Genaro Blanc M.D. Genaro Blanc M.D. [place] 05:20 PM 05:20 PM [facility] [[facility]] Curtis Oseguera MD IMG US PROCEDURES Final Result documented in this encounter Visit Diagnoses Diagnosis Ovarian cyst Other and unspecified ovarian cyst documented in this encounter Care Teams Signal Timer Relationship Specialty Start Date End Date Feliciano Dash MD PCP - General 07/13/15 03/07/16 documented as of this encounter
--- OUTSIDE RECORDS SUMMARY | 2024-04-29 20:20 | XMS_ITS | Encounter Summary ---
Author Organization [facility] Facility Care Team Providers Care Manager Occupational Name Role Phone Feliciano Dash MD Primary Care Provider [phone] Encounter Details Date Type Department Care Team (Late st Contact Info) Description 06/29/2015 2:33 PM [employer]ASS [employer] BENDING CONVEYOR FEEDER - 06/29/2015 11:59 PM GLASS [employer] BENDING CONVEYOR FEEDER Hospital [facility] Ibrahim MD [address] [place] [address] Miriam Frye PA [address] [place] [address] Pain in joint; Other fatigue; Abnormal levels of other serum enzymes Social History Tobacco Use Types Packs/Day Years Used Date Smoking Tobacco: Never Alcohol Use Standard Drinks/Week Comments No 0 (1 standard drink = 0.6 oz pur e alcohol) Comments Unknown Sex and Gender Information Value Date Recorded Sex Assigned at Not on file Legal Sex Female 9:24 PM GLASS [employer]IAL BENDING CONVEYOR FEEDER Gender Identity Female 08/14/2022 11:32 AM [...] SERUM THYROPEROXIDASE AB Routine 06/29/2015 2:43 PM GL[employer] BENDING CONVEYOR FEEDER SERUM THYROGLOBULIN AB Routine 6 2:43 PM GL[employer] V[employer] BENDING CONVEYOR FEEDER SERUM RHEUMATOID FACTOR Routine 06/29/19 16 2:43 PM GLASS VIAL BENDING CONVEYOR FEEDER SERUM RAPID PLASMA REAGIN (RPR) Routine 06/29/2015 2:43 PM GLASS VIAL BENDING CONVEYOR FEEDER SERUM JAELYN-1 AB Routine 06/29/2015 2:43 PM GL[employer] V[employer] BENDING CONVEYOR FEEDER SERUM HEPATITIS C AB Routine 06/29/2015 2:43 PM GL[employer] V[employer] BENDING CONVEYOR FEEDER SERUM HEPATITIS B SURFACE AG Routine 06/29/2015 2:43 PM GL[employer] VIAL BENDING CONVEYOR FEEDER SERUM HEPATITIS B CORE AB Routine 06/29/2015 2:43 PM GL[employer] VIAL BENDING CONVEYOR FEEDER SERUM DOUBLE-STRANDED DNA AB Routine 06/29/2015 2:43 PM GL[employer] V[employer] BENDING CONVEYOR FEEDER SERUM CYCLIC CITRULLINATED PEPTIDE IGG 3RD GENERATION Routine 06/29/2015 2:43 PM GLASS V[employer] BENDING CONVEYOR FEEDER SERUM COMPLEMENT Routine 06/29/2015 2:43 PM GLASS VIAL BENDING CONVEYOR FEEDER SERUM [id number] I, IGA Routine 06/29/2015 2:43 PM GLASS VIAL BENDING CONVEYOR FEEDER SERUM [id number] I IGM Routine 06/29/2015 2:43 PM GLASS VIAL BENDING CONVEYOR FEEDER SERUM ANTINUCLEAR AB (ASHLEY) Routine 06/29/2015 2:43 PM GLASS VIAL BENDING CONVEYOR FEEDER SERUM ANTI-EXTRACTABLE NUCLEAR AG (JUANI), SS-B AB Routine 06/29/2015 2:43 PM GL[employer] VIAL BENDING CONVEYOR FEEDER SERUM ANTI-EXTRACTABLE NUCLEAR AG (JUANI), SS-A AB Routine 06/29/2015 2:43 PM GLASS VIAL BENDING CONVEYOR FEEDER SERUM ANTI-EXTRACTABLE NUCLEAR AG (JUANI), SM/MARKETING ADMINISTRATIVE ASSISTANT AB Routine 06/29/2015 2:43 PM GLASS VIAL BENDING CONVEYOR FEEDER SERUM ANTICARDIOLIPIN AB, IGG, IGM Routine 06/29/2015 2:43 PM GL[employer] VIAL BENDING CONVEYOR FEEDER SERUM ANTICARDIOLIPIN AB, IGA Routine 06/29/2015 2:43 PM GLASS VIAL BENDING CONVEYOR FEEDER SERUM ANGIOTENSIN-CONVERTING ENZYME (CLEMENTINE) Routine 06/29/2015 2:43 PM GLASS VIAL BENDING CONVEYOR FEEDER PLASMA URIC ACID Routine 06/29/2015 2:43 PM GL[employer] VIAL BENDING CONVEYOR FEEDER PLASMA THYROXINE (T4), FREE Routine 06/29/2015 2:43 PM GLASS VIAL BENDING CONVEYOR FEEDER PLASMA THYROID-STIMULATING HORMONE (TSH) Routine 06/29/2015 2:43 PM GL[employer] VIAL BENDING CONVEYOR FEEDER PLASMA LUPUS ANTICOAGULANT Routine 06/29/2015 2:43 PM GL[employer] VIAL BENDING CONVEYOR FEEDER PLASMA LIPASE Routine 06/29/2015 2:43 PM GLASS VIAL BENDING CONVEYOR FEEDER PLASMA CREATINE KINASE (CK) Routine 06/29/2015 2:43 PM GLASS VIAL BENDING CONVEYOR FEEDER PLASMA C-REACTIVE PROTEIN Routine 06/29/2015 2:43 PM GLASS VIAL BENDING CONVEYOR FEEDER PLASMA COMPREHENSIVE METABOLIC PANEL Routine 06/29/2015 2:43 PM GLASS VIAL BENDING CONVEYOR FEEDER PLASMA COMPLEMENT C4 Routine 06/29/2015 2:43 PM GL[employer] VIAL BENDING CONVEYOR FEEDER PLASMA COMPLEMENT C3 Routine 06/29/2015 2:43 PM GL[employer] VIAL BENDING CONVEYOR FEEDER PLASMA AMYLASE Routine 06/29/2015 2:43 PM GLASS VIAL BENDING CONVEYOR FEEDER BLOOD QUANTIFERON GOLD TB Routine 06/29/2015 2:43 PM GLASS VIAL BENDING CONVEYOR FEEDER BLOOD ERYTHROCYTE SEDIMENTATION RATE (ESR) Routine 06/29/2015 2:43 PM GLASS VIAL BENDING CONVEYOR FEEDER BLOOD DIRECT ANTIGLOBULIN TEST Routine 06/29/2015 2:43 PM GLASS VIAL BENDING CONVEYOR FEEDER BLOOD CELL COUNT (CBC), MORPHOLOGIC EXAM Routine 06/29/2015 2:43 PM GLASS VIAL BENDING CONVEYOR FEEDER URINALYSIS Routine 06/29/2015 2:43 PM GLASS VIAL BENDING CONVEYOR FEEDER DISCHARGE LABORATORY CUMULATIVE REPORT 06/29/2015 documented in this encounter Results * Urinalysis (06/29/2015 2:43 PM GLASS VIAL BENDING CONVEYOR FEEDER) Color, ur Yellow Colorless,St raw,Yellow HISTORICAL RESULTS [...] Negative HISTORICAL RESULTS Urine 06/29/2015 2:43 PM GLASS VIAL BENDING CONVEYOR FEEDER Miriam VALLE LAB BLOOD ORDERAB LES Final Result HISTORICAL RESULTS * Blood erythrocyte sedimentation rate (ESR) (06/29/2015 2:43 PM GLASS VIAL BENDING CONVEYOR FEEDER) Erythrocyte sedimentation rate 9.0 0.0 - 20.0 mm/hr HISTORICAL RESULTS Blood specimen (specimen) 06/29/2015 2:43 PM GLASS VIAL BENDING CONVEYOR FEEDER Miriam VALLE LAB BLOOD ORDERAB LES Final Result HISTORICAL RESULTS * (ABNORMAL) Blood cell count (CBC), morphologic exam (06/29/2015 2:43 PM GLASS VIAL BENDING CONVEYOR FEEDER) WBC 8.9 4.5 - 11.0 K/cumm HISTORICAL [...] RESULTS Blood specimen (specimen) 06/29/2015 2:43 PM GLASS V[employer] BENDING CONVEYOR FEEDER Miriam VALLE LAB BLOOD ORDERAB LES Final Result HISTORICAL RESULTS * Serum thyroperoxidase ab (06/29/2015 2:43 PM GLASS VIAL BENDING CONVEYOR FEEDER) Pathologist [facility] Thyroglobulin peroxidase ab 2.0 0.0 - 9.0 IUnits/ml HISTORICAL RESULTS Serum 06/29/2015 2:43 PM GL[employer] VIAL BENDING CONVEYOR FEEDER Miriam VALLE LAB BLOOD ORDERAB LES Final Result Performing Organization Address [facility] Co de Phone Number HISTORICAL RESULTS * Serum Hepatitis B surface ag (06/29/2015 2:43 PM GLASS VIAL BENDING CONVEYOR FEEDER) HBV surface ag Non-Reacti ve Non-Reacti ve HISTORICAL RESULTS Serum 06/29/2015 2:43 PM GLASS VIAL BENDING CONVEYOR FEEDER Miriam VALLE LAB BLOOD ORDERAB LES Final Result Performing Organization Address [facility] Phone Number HISTORICAL RESULTS * Serum Hepatitis C ab (06/29/2015 2:43 PM GLASS VIAL BENDING CONVEYOR FEEDER) HCV ab Non-Reacti ve Non-Reacti ve HISTORICAL RESULTS Serum 06/29/2015 2:43 PM GLASS VIAL BENDING CONVEYOR FEEDER Miriam VALLE LAB BLOOD ORDERAB LES Final Result Performing Organization Address [facility] de Phone Number HISTORICAL RESULTS * (ABNORMAL) Plasma comprehensive metabolic panel (06/29/2015 2:43 PM GLASS VIAL BENDING CONVEYOR FEEDER) Sodium 140 136 - 146 mmol/L HISTORICAL [...] IUnits/L HISTORICAL RESULTS Plasma 06/29/2015 2:43 PM GLASS VIAL BENDING CONVEYOR FEEDER Miriam VALLE LAB BLOOD ORDERAB LES Final Result Performing Organization Address [facility] Co de Phone Number HISTORICAL RESULTS * Plasma C-reactive protein (06/29/2015 2:43 PM GLASS VIAL BENDING CONVEYOR FEEDER) C-RP 2.8 0.00 - 10.00 mg/L HISTORICAL RESULTS Comment:Please Note: As of 0 05/29/2011, C-Reactive Protein testing is performed at [facility] Laboratory. The Reference Range has changed. Plasma 06/29/2015 2:43 PM GLASS VIAL BENDING CONVEYOR FEEDER Miriamgui Frye ME LAB BLOOD ORDERAB LES Final Result Performing Organization Address [facility] Co de Phone Number HISTORICAL RESULTS * Plasma thyroxine (T4), free (06/29/2015 2:43 PM GLASS VIAL BENDING CONVEYOR FEEDER) Free T4 0.80 0.58 - 1.64 ng/dl HISTORICAL RESULTS Comment: Reference ranges for women: 1st trimester: ?0.52-1.10 ng/dL 2nd trimester: ?? 0.45-0.99 ng/dL 3rd trimester: ?0.48-0.95 ng/dL Plasma 06/29/2015 2:43 PM GLASS VIAL BENDING CONVEYOR FEEDER Miriam VALLE LAB BLOOD ORDERAB LES Final Result Performing Organization Address [facility] de Phone Number HISTORICAL RESULTS * (ABNORMAL) Plasma creatine kinase (CK) (06/29/2015 2:43 PM GLASS VIAL BENDING CONVEYOR FEEDER) CK 22(L) 38 - 234 IUnits/L HISTORICAL RESULTS Plasma 06/29/2015 2:43 PM GLASS VIAL BENDING CONVEYOR FEEDER Miriam VALLE LAB BLOOD ORDERAB LES Final Result Performing Organization Address [facility] Phone Number HISTORICAL RESULTS * (ABNORMAL) Plasma thyroid-stimulating hormone (TSH) (06/29/2015 2:43 PM GLASS VIAL BENDING CONVEYOR FEEDER) TSH 0.22(L) 0.34 - 5.60 mcIUnits/ ml [...] 12.0 ? mcIUnits/mL Plasma 06/29/2015 2:43 PM GLASS VIAL BENDING CONVEYOR FEEDER Miriam VALLE LAB BLOOD ORDERAB LES Final Result Performing Organization Address [facility] de Phone Number HISTORICAL RESULTS * Plasma complement C4 (06/29/2015 2:43 PM GLASS VIAL BENDING CONVEYOR FEEDER) Complement C4 32 18 - 55 mg/dl HISTORICAL RESULTS Comment:Please Note: As of N ov2011, the reference range has changed. Plasma 06/29/2015 2:43 PM GLASS VIAL BENDING CONVEYOR FEEDER Miriam VALLE LAB BLOOD ORDERAB LES Final Result Performing Organization Address [facility] de Phone Number HISTORICAL RESULTS * (ABNORMAL) Plasma lipase (06/29/2015 2:43 PM GLASS VIAL BENDING CONVEYOR FEEDER) Lip 83(H) 8 - 57 Units/L HISTORICAL RESULTS Plasma 06/29/2015 2:43 PM GLASS VIAL BENDING CONVEYOR FEEDER Miriam VALLE LAB BLOOD ORDERAB LES Final Result Performing Organization Address [facility] de Phone Number HISTORICAL RESULTS * Plasma uric acid (06/29/2015 2:43 PM GLASS VIAL BENDING CONVEYOR FEEDER) [facility] [address] Uric acid 4.7 2.5 - 6.2 mg/dl HISTORICAL RESULTS Plasma 06/29/2015 2:43 PM GLASS VIAL BENDING CONVEYOR FEEDER Miriam VALLE LAB BLOOD ORDERAB LES Final Result Performing Organization Address [facility] de Phone Number HISTORICAL RESULTS * (ABNORMAL) Plasma amylase (06/29/2015 2:43 PM GLASS VIAL BENDING CONVEYOR FEEDER) Pathologist [facility] [address](H) 28 - 100 IUnits/L HISTORICAL RESULTS Plasma 06/29/2015 2:43 PM GLASS VIAL BENDING CONVEYOR FEEDER Miriam VALLE LAB BLOOD ORDERAB LES Final Result Performing Organization Address [facility] Co de Phone Number HISTORICAL RESULTS * (ABNORMAL) Plasma complement C3 (06/29/2015 2:43 PM GLASS VIAL BENDING CONVEYOR FEEDER) Pathologist [facility] Complement C3 162(H) 79 - 152 mg/dl HISTORICAL RESULTS Plasma 06/29/2015 2:43 PM GLASS VIAL BENDING CONVEYOR FEEDER Miriam VALLE LAB BLOOD ORDERAB LES Final Result Performing Organization Address [facility] Co de Phone Number HISTORICAL RESULTS * Blood quantiferon gold TB (06/29/2015 2:43 PM GLASS VIAL BENDING CONVEYOR FEEDER) Ignore 0.040 Units/ml HISTORICAL RESULTS mitogen-NIL >10.00 [...] IU/mL. For additional information, please refer to http://education.Trovali/faq/QFT (This link is being provided for informational/ educational purposes only.) [facility] [id number] [place], [place] ??[phone] BERT FORTE DO,MPH Quantiferon Gold TB Negative NEGATIVE HISTORICAL RESULTS Comment: Negative test result. M. tuberculosis complex infection unlikely. Blood specimen (specimen) 06/29/2015 2:43 PM GLASS VIAL BENDING CONVEYOR FEEDER Miriam VALLE LAB BLOOD ORDERAB LES Final Result HISTORICAL RESULTS * Serum thyroglobulin ab (06/29/2015 2:43 PM GLASS VIAL BENDING CONVEYOR FEEDER) Pathologist [facility] Anti-thyroglobulin , quant <1.8 <4.0 IUnits/ml HISTORICAL RESULTS Comment: ADDITIONAL INFORMATION The thyroglobulin antibody testing method is an immunoenzymatic assay manufactured by [employer] and performed on the [employer] DXI 800. Values obtained from different assay methods or kits may be different and cannot be used interchangeably. The results cannot be interpreted as absolute evidence for the presence or absence of malignant disease. Serum 06/29/2015 2:43 PM GLASS VIAL BENDING CONVEYOR FEEDER [facility] Eunice Frye ME LAB BLOOD ORDERAB LES Final Result Performing Organization Address [facility] Phone Number HISTORICAL RESULTS * Serum Hepatitis B core ab (06/29/2015 2:43 PM GLASS VIAL BENDING CONVEYOR FEEDER) HBV core ab Negative Negative HISTORIC AL RESULTS Serum 06/29/2015 2:43 PM GLASS VIAL BENDING CONVEYOR FEEDER Miriam Frye ME LAB BLOOD ORDERAB LES Final Result Performing Organization Address [facility] Phone Number HISTORICAL RESULTS * Serum anti-extractable nuclear ag (JUANI), SS-B ab (06/29/2015 2:43 PM GLASS VIAL BENDING CONVEYOR FEEDER) Anti-JUANI, SS-B <1.0 NEG <1.0NEG AI HISTORICAL RESULTS Comment: Test performed at [facility] [address] ??[phone] BERT FORTE DO,MPH Serum 06/29/2015 2:43 PM GLASS VIAL BENDING CONVEYOR FEEDER [facility] Eunice Frye ME LAB BLOOD ORDERAB LES Final Result Performing Organization Address [facility] de Phone Number HISTORICAL RESULTS * Serum anti-extractable nuclear ag (JUANI), SS-A ab (06/29/2015 2:43 PM GLASS VIAL BENDING CONVEYOR FEEDER) Pathologist [facility] Anti-JUANI, SS-A <1.0 NEG <1.0NEG AI HISTORICAL RESULTS Comment: Test performed at [facility] [address] ??[phone] BERT FORTE DO,MPH Serum 06/29/2015 2:43 PM GLASS V[employer] BENDING CONVEYOR FEEDER Miriam VALLE LAB BLOOD ORDERAB LES Final Result HISTORICAL RESULTS * Serum antinuclear ab (ASHLEY) (06/29/2015 2:43 PM GLASS VIAL BENDING CONVEYOR FEEDER) ASHLEY, qual Negative NEGATIVE HISTORICAL RESULTS Comment: Test performed at [facility] [address] ??[phone] BERT FORTE DO,MPH Serum 06/29/2015 2:43 PM GLASS VIAL BENDING CONVEYOR FEEDER Miriam Frye ME LAB BLOOD ORDERAB LES Final Result Performing Organization Address [facility] Co de Phone Number HISTORICAL RESULTS * Serum anticardiolipin ab, IgG, IgM (06/29/2015 2:43 PM GLASS VIAL BENDING CONVEYOR FEEDER) Pathologist [facility] Cardiolipin, IgG 1.2 0.0 - 14.9 GPL [...] in the absence of IgG or IgM JULIANEN, and the association of an isolated IgA JULIANNE with APA clinical signs and symptoms is weak. ??The presence of rheumatoid factor may lead to false-positive IgM anticardiolipin results. ??The following results were obtained with the [employer] QUANTLiteTM IgG and IgM III FRIDA. ??Cardiolipin IgG and IgM values obtained with different manufacturers' assay methods may not be used interchangeably. Current interpretive data was last revised on 2010. Serum 06/29/2015 2:43 PM GLASS VIAL BENDING CONVEYOR FEEDER Miriam VALEL LAB BLOOD ORDERAB LES Final Result HISTORICAL RESULTS * Serum anticardiolipin ab, IgA (06/29/2015 2:43 PM GLASS VIAL BENDING CONVEYOR FEEDER) Cardiolipin, IgA 0.4 0.0 - 11.9 APL [...] ??The following results were obtained with the [employer] QUANTLiteTM IgA III FRIDA. ??Caridolipin IgA values [...] revised on 2008. Serum 06/29/2015 2:43 PM GLASS VIAL BENDING CONVEYOR FEEDER Miriam VALLE LAB BLOOD ORDERAB LES Final Result Performing Organization Address [facility] de Phone Number HISTORICAL RESULTS * Serum anti-extractable nuclear ag (JUANI), SM/MARKETING ADMINISTRATIVE ASSISTANT ab (06/29/2015 2:43 PM GLASS VIAL BENDING CONVEYOR FEEDER) Anti-JUANI, SM <1.0 NEG <1.0NEG AI HISTORICAL RESULTS JUANI, SM/MARKETING ADMINISTRATIVE ASSISTANT Ab <1.0 NEG <1.0NEG AI HISTORICAL RESULTS Comment: Test performed at [facility] [address] ??[phone] BERT FORTE DO,MPH Serum 06/29/2015 2:43 PM GLASS VIAL BENDING CONVEYOR FEEDER Miriam VALLE LAB BLOOD ORDERAB LES Final Result Performing Organization Address [facility] de Phone Number HISTORICAL RESULTS * Serum Jaelyn-1 ab (06/29/2015 2:43 PM GLASS VIAL BENDING CONVEYOR FEEDER) Anti-JAELYN-1 <1.0 NEG <1.0NEG AI HISTORICAL RESULTS Comment: Test performed at [facility] [address] ??[phone] BERT FORTE DO,MPH Serum 06/29/2015 2:43 PM GLASS VIAL BENDING CONVEYOR FEEDER Miriam Frye ME LAB BLOOD ORDERAB LES Final Result Performing Organization Address [facility] de Phone Number HISTORICAL RESULTS * Serum double-stranded DNA ab (06/29/2015 2:43 PM GLASS VIAL BENDING CONVEYOR FEEDER) [facility] [address] [facility] Anti-double stranded DNA, quant <1 IUnits/ml HISTORIC AL RESULTS Comment: IU/mL ? Interpretation ? < or = 4 ?Negative ? 5-9 ? Indeterminate ? > or = 10 ?? Positive Test performed at [facility] [place] [id number] [place], [place] ??[phone] BERT FORTE DO,MPH Serum 06/29/2015 2:43 PM GLASS VIAL BENDING CONVEYOR FEEDER Miriam VALLE LAB BLOOD ORDERAB LES Final Result Performing Organization Address [facility] de Phone Number HISTORICAL RESULTS * (ABNORMAL) Serum gxcv-3-ujtrxdtydgha I IgM (06/29/2015 2:43 PM GLASS VIAL BENDING CONVEYOR FEEDER) [facility] [address] [facility] Beta-2 glycoprotein I, IgG 14.0(H) <10.0(Neg ative) Units/ml HISTORICAL RESULTS Comment:Interpretation: Bord barbra (10.0-14.9) Beta-2 glycoprotein I, IgM <4.0 <10.0(Neg ative) Units/ml HISTORICAL RESULTS Serum 06/29/2015 2:43 PM GLASS VIAL BENDING CONVEYOR FEEDER Miriam Frye ME LAB BLOOD ORDERAB LES Final Result Performing Organization Address [facility] de Phone Number HISTORICAL RESULTS * Serum angiotensin-converting enzyme (CLEMENTINE) (06/29/2015 2:43 PM GLASS VIAL BENDING CONVEYOR FEEDER) [facility] [address] [facility] CLEMENTINE 32 10 - 55 Units/L HISTORICAL RESULTS Serum 06/29/2015 2:43 PM GLASS VIAL BENDING CONVEYOR FEEDER Miriam VALLE LAB BLOOD ORDERAB LES Final Result HISTORICAL RESULTS * Plasma lupus anticoagulant (06/29/2015 2:43 PM GLASS VIAL BENDING CONVEYOR FEEDER) Prothrombin time (PT) 10.7 9.2 - 13.0 [...] updated copy of the Tool Book at [email or web address] Current Interpretive Data was last revised 2011. [...] revised on 2013 Plasma 06/29/2015 2:43 PM GLASS VIAL BENDING CONVEYOR FEEDER Miriam VALLE LAB BLOOD ORDERAB LES Final Result HISTORICAL RESULTS * Serum Xqkz-3-jmuyauonvhfl I, IgA (06/29/2015 2:43 PM GLASS VIAL BENDING CONVEYOR FEEDER) Beta-2 glycoprotein I, IgA <4.0 <10.0(Nega tive) Units/ml HISTORICAL RESULTS Serum 06/29/2015 2:43 PM GLASS VIAL BENDING CONVEYOR FEEDER Miriam VALLE LAB BLOOD ORDERAB LES Final Result Performing Organization Address [facility] Co de Phone Number HISTORICAL RESULTS * Serum rheumatoid factor (06/29/2015 2:43 PM GLASS VIAL BENDING CONVEYOR FEEDER) [facility] [address] [facility] Rheumatoid factor, quant 9 <14 IUnits/ml HISTORICAL RESULTS Comment: Test performed at [facility] [address] ??[phone] BERT FORTE DO,MPH Serum 06/29/2015 2:43 PM GLASS V[employer] BENDING CONVEYOR FEEDER Miriam VALLE LAB BLOOD ORDERAB LES Final Result Performing Organization Address [facility] de Phone Number HISTORICAL RESULTS * Serum cyclic citrullinated peptide IgG 3rd generation (06/29/2015 2:43 PM GLASS VIAL BENDING CONVEYOR FEEDER) [facility] [address] CCP3 IgG <15.6 0.0 - 19.0 units HISTORICAL RESULTS Comment: Interpretive Data The following results were obtained with the [employer] Quanta Lite CCP3 IgG FRIDA. ??Anti-CCP values [...] revised on 2006. Serum 06/29/2015 2:43 PM GLASS VIAL BENDING CONVEYOR FEEDER Result [facility] Miriam VALLE LAB BLOOD ORDERAB LES Final Result Performing Organization Address [facility] Co de Phone Number HISTORICAL RESULTS * Serum rapid plasma reagin (RPR) (06/29/2015 2:43 PM GLASS VIAL BENDING CONVEYOR FEEDER) [facility] [address] RPR Nonreactive HISTORIC AL RESULTS Serum 06/29/2015 2:43 PM GLASS V[employer] BENDING CONVEYOR FEEDER MiriamKeyanna VALLE LAB BLOOD ORDERAB LES Final Result HISTORICAL RESULTS * (ABNORMAL) Serum complement (06/29/2015 2:43 PM GLASS VIAL BENDING CONVEYOR FEEDER) Complement hemolytic 149(H) 63 - 145 HISTORICAL RESULTS Serum 06/29/2015 2:43 PM GLASS VIAL BENDING CONVEYOR FEEDER Miriam Eunice VALLE LAB BLOOD ORDERAB LES Final Result Performing Organization Address [facility] Co de Phone Number HISTORICAL RESULTS * Blood direct antiglobulin test (06/29/2015 2:43 PM GLASS V[employer] BENDING CONVEYOR FEEDER) Wang, direct, IgG Negative HISTORICAL RESULTS Wang, direct, complement Negative HISTORICAL RESULTS Blood specimen (specimen) 06/29/2015 2:43 PM GLASS V[employer] BENDING CONVEYOR FEEDER MiriamKeyanna VALLE LAB BLOOD ORDERAB LES Final Result Performing Organization Address [facility] Co de Phone Number HISTORICAL RESULTS * DISCHARGE LABORATORY CUMULATIVE REPORT (06/29/2015) Narrative 06/29/2015 Ordered by an unspecified provider. Historical Provider LAB BLOOD ORDERABLES Abigail l Result documented in this encounter Visit Diagnoses Diagnosis Pain in joint Other fatigue Abnormal levels of other serum enzymes documented in this encounter Care Teams Manager Occupational Relationship Specialty Start Date End Date Feliciano Dash MD PCP - General 06/29/15 07/12/15 documented as of this encounter
--- OUTSIDE RECORDS SUMMARY | 2024-04-29 20:20 | XMS_ITS | Encounter Summary ---
Author Organization [facility] Facility Care Team Providers Care Manager Document Control Name Role Phone Unavailable Primary Care Provider Unavailabl e Encounter Details Date Type Department Care Team (Late st Contact Info) Description 09/04/2014 10:19 AM CDT - 09/04/2014 3:38 PM CDT Hospital Encounter [facility] Zaida Worrell, FIXED ROUTE BUS OPERATOR [address] [place] [address] Calculus of kidney; Abdominal pain; Urinary tract infection; Diverticulosis of colon; Tobacco use disorder Social History Tobacco Use Types Packs/Day Years Used Date Smoking Tobacco: Never Assessed Comments Unknown Sex and Gender Information Value Date Recorded Sex Assigned at Not on file Legal Sex Female 9:24 PM 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 ACC# ??Date Time ??Exam [id number] September 04, 2014 12:48:[id number] Abd & Pelvis wo cont EXAMINATION: [...] ROBBINS M.D. on Sep 04 2014 ??5:14P [id number] Procedure Note Provider, MD John - 08/20/2016 FRANKY ROBBINS M.D. LUNA KUNZ M.D. FINAL REPORT The radiology attending physician has personally reviewed this study, and has reviewed and/or edited this written report and agrees with it. ACC# Date Time Exam [id number] September 04, 2014 12:48:[id number] Abd & Pelvis wo cont EXAMINATION: [...] ROBBINS M.D. on Sep 04 2014 5:14P [id number] Historical Provider IMG CT PROCEDURES Final R [...] 09/04/2014 11:0 7 AM CDT Zaida Choudhury FIXED ROUTE BUS OPERATOR LAB BLOOD ORDERABLES Final Result HISTORICAL RESULTS [...] ORDERABLES Final Res ult Performing Organization Address City/State[facility] Co de Phone Number [...] ORDERABLES Final Res ult Performing Organization Address [facility] de Phone Number HISTORICAL RESULTS * All Microbiology Report Section (09/04/2014 12:00 AM CDT) 09/04/2014 Narrative HISTORICAL RESULTS - 09/05/2014 4:08 PM CDT ? [facility] ?[facility] [place] ?[place], [place] [address] ? Patient Name: ??JULIAN GALO ? Med Rec Number: [id number] ? Fin Number: ?[id number] ? Date: ?1975 ? Sex/Age: ? Female 39 years ? Admit Date: ?09/04/2014 ? Discharge Date: 09/04/2014 ? Doctor: ?Foersterling , Zaida L ? Facility: ?[facility] ? Location: ?EM3-2 ?* Abnormal ??A [...] HISTORICAL RESULTS - 09/05/2014 3:17 PM CDT ?[facility] ?Department of Laboratories ? [facility] [place] ? [place], [place] [address] Patient Name: ??JULIAN GALO Med Rec Number: [id number] Fin Number: ?[id number] Date: ?1975 Sex/Age: ? Female 39 years Admit Date: ?09/04/2014 Discharge Date: 09/04/2014 Doctor: ?Zaida Choudhury Facility: ?[facility] Location: ?EM3-2 Chart Printed: 09/05/2014 15:17 [...] ?URINALYSIS ?Macroscopic ?Test: Color ? Clarity ??Specific [place] ??pH ? Reference: [Yellow] ??[Clear] ??[1.003-1.030] ? [...] ?Test: Neut Pct Auto ??Lymph Pct Auto ??Refugio Pct Auto ? Reference: [38.7-74.5] ?[20.0-54.3] ? [4.3-13.5] ? Units: % ?% ? % 09/04/2014 ?? 11:07:00 ?? 69.1 ? 23.5 ?5.1 ?Test: Eos Pct Auto ??Baso Pct Auto ??Neut Abs Auto ? Reference: [0.0-6.0] ? [0.0-3.0] ?[1.8-6.6] ? Units: % ? % ?K/cumm 09/04/2014 ?? 11:07:00 ?? 1.3 ? 1.0 ?6.2 ?Test: Lymph Abs Auto ??Refugio Abs Auto ??Eos Abs Auto ? Reference: [...]
--- OUTSIDE RECORDS SUMMARY | 2024-04-29 20:20 | XMS_ITS | Encounter Summary ---
Author Organization [facility] Healthcare Address [address] [place] [address] Care Team Providers Care Sample Tester Grinder Name Role Phone Unavailable Primary Care Provider Unavailabl e Encounter Details Date Type Department Care Team (Late st Contact Info) Description 04/02/2014 11:44 AM SAMPLE STITCHER - 04/02/2014 3:07 PM SAMPLE STITCHER Hospital Encounter [facility] Hari Hanson MD [address] [place] [address] Gastritis and gastroduodenitis; Tobacco use disorder Social History Tobacco Use Types Packs/Day Years Used Date Smoking Tobacco: Never Assessed Comments Unknown Sex and Gender Information Value Date Recorded Sex Assigned at Not on file Legal Sex Female 9:24 PM SAMPLE STITCHER Gender Identity Female 08/14/2022 11:32 AM CDT Sexual Orientation Straight 02/13/2023 7: 01 AM CDT documented as of this encounter Last Filed Vital Signs Vital Sign Reading Time Taken Comments Blood Pressure 103/72 04/02/2014 11:57 AM SAMPLE STITCHER Pulse 86 04/02/2014 11:57 AM SAMPLE STITCHER Temperature 36.9 ??C (98.4 ??F) 04/02/2014 11:[address] Respiratory Rate - - Oxygen Saturation 100% 04/02/2014 11:57 AM SAMPLE STITCHER Inhaled Oxygen Concentration - - Weight 77.1 kg (170 lb) 04/02/2014 11:57 AM SAMPLE STITCHER Height 167.6 cm (5' 6 ) 04/02/2014 11:57 AM SAMPLE STITCHER Body Mass Index 27.44 04/02/2014 11:57 AM SAMPLE STITCHER documented in this encounter Plan of Treatment Not on file documented as of this encounter Procedures Procedure Name Priority Date/Time Associated Diagnosis Comments URINALYSIS AND REFLEX TO MICROSCOPIC AND CULTURE Routine 04/02/2014 12:39 PM SAMPLE STITCHER CBC WITH AUTO DIFFERENTIAL Routine 04/02/2014 12:31 PM SAMPLE STITCHER LIPASE Routine 04/02/2014 12:31 PM SAMPLE STITCHER COMPREHENSIVE METABOLIC PANEL Routine 04/02/2014 12:[address] ABDOMEN PELVIS W CONTRAST Routine 04/02/2014 12:00 AM SAMPLE STITCHER documented in this encounter Results * (ABNORMAL) Urinalysis reflex to microscopic and culture (04/02/2014 12:39 PM SAMPLE STITCHER) Ur Collection Type CLEAN CATCH Ur Culture Indicated? C&S NOT INDICATED 04/02/2014 12:56 PM [employer] HISTORICAL RESULTS Urine Color STRAW YELLOW 04/02/2014 12:56 PM [employer] HISTORICAL RESULTS Urine Clarity HAZY CLEAR 04/02/2014 12:56 PM [employer] HISTORICAL RESULTS Urine Glucose (UA) NORMAL NORMAL mg/dL 04/02/2014 12:56 PM [employer] HISTORICAL RESULTS Urine Bilirubin NEGATIVE NEGATIVE mg/dl 04/02/2014 12:56 PM [employer] HISTORICAL RESULTS Urine Ketones NEGATIVE NEGATIVE mg/dL 04/02/2014 12:56 PM [employer] HISTORICAL RESULTS Ur Specific [place] 1.014 1.005 - 1.025 04/02/2014 12:56 PM [employer] HISTORICAL RESULTS Urine Blood NEGATIVE NEGATIVE mg/dl 04/02/2014 12:56 PM [employer] HISTORICAL RESULTS Urine pH 6.5 5.0 - 8.0 04/02/2014 12:56 PM [employer] HISTORICAL RESULTS Urine Protein NEGATIVE NEGATIVE mg/dL 04/02/2014 12:56 PM [employer] HISTORICAL RESULTS Urine Urobilinogen NORMAL NORMAL mg/dL 04/02/2014 12:56 PM SAMPLE STITCHER [facility] HISTORICAL RESULTS Urine Nitrite NEGATIVE NEGATIVE 04/02/2014 12:56 PM SAMPLE STITCHER [facility] HISTORICAL RESULTS Ur Leukocyte Esterase 250(H) NEGATIVE Andrey/ul 04/02/2014 12:56 PM SAMPLE STITCHER [facility] HISTORICAL RESULTS Ur Microscopic Review Indicated or Ordered 04/02/2014 12:56 PM SAMPLE STITCHER [facility] HISTORICAL RESULTS Urine RBC 2 0 - 2 /HPF 04/02/2014 12:56 PM SAMPLE STITCHER [facility] HISTORICAL RESULTS Urine WBC 1 0 - 2 /HPF 04/02/2014 12:56 PM SAMPLE STITCHER [facility] HISTORICAL RESULTS Urine Bacteria Rare /HPF 04/02/2014 12:56 PM SAMPLE STITCHER [facility] HISTORICAL RESULTS Urine Mucus Rare /LPF Ur Squamous Epith Cells Rare /HPF 04/02/2014 12:56 PM SAMPLE STITCHER [facility] HISTORICAL RESULTS 04/02/2014 12:3 9 PM SAMPLE STITCHER 04/02/2014 12:48 PM SAMPLE STITCHER Narrative [facility] HISTORICAL RESULTS - 04/02/2014 12:56 PM SAMPLE STITCHER Collected By kr ?? 041 Yessica VALLE LAB MICROBIOLOGY - GENERAL OR DERABLES Final Result [facility] HISTORICAL RESULTS * (ABNORMAL) Lipase (04/02/2014 12:31 PM SAMPLE STITCHER) Lipase 107(H) 13 - 60 U/L 04/02/2014 1:09 PM SAMPLE STITCHER [facility] HISTORICAL RESULTS 04/02/2014 12:3 1 PM SAMPLE STITCHER 04/02/2014 12:33 PM SAMPLE STITCHER [facility] BLOOD ORDERABLES Final Re sult [facility] HISTORICAL RESULTS * (ABNORMAL) Comprehensive metabolic panel (04/02/2014 12:31 PM SAMPLE STITCHER) Sodium 141 135 - 145 mmol/L 04/02/2014 1:09 PM SAMPLE STITCHER [facility] HISTORICAL RESULTS Comment: Due to a Calibration adjustment, results may vary by +2 mmol/l as compared to results obtained prior to ?? March 24, 2014 Potassium 4.6 3.3 - 5.1 mmol/L 04/02/2014 1:09 PM [employer] HISTORICAL RESULTS Comment: Due to a Calibration adjustment, results may vary by +0.2 mmol/l as compared to results obtained prior to March 24, 2014 Chloride 107 96 - 108 mmol/L 04/02/2014 1:09 PM [employer] HISTORICAL RESULTS Carbon Dioxide 22 22 - 32 mmol/L 04/02/2014 1:09 PM [employer] HISTORICAL RESULTS Anion Gap 12 7 - 16 04/02/2014 1:09 PM [employer] HISTORICAL RESULTS Glucose 90 70 - 100 mg/dL 04/02/2014 1:09 PM [employer] HISTORICAL RESULTS Comment:As of March 24 14 new normal range in use. BUN 16 6 - 20 mg/dL 04/02/2014 1:09 PM [employer] HISTORICAL RESULTS Creatinine 0.6 0.5 - 1.1 mg/dL 04/02/2014 1:09 PM [employer] HISTORICAL RESULTS Kidney Disease Stage > 90 mL/MIN 04/02/2014 1:09 PM [employer] HISTORICAL RESULTS Comment: NOTE; ??The GFR is [...] 6.4 - 8.3 g/dL 04/02/2014 1:09 PM SAMPLE STITCHER [facility] HISTORICAL RESULTS Albumin 4.2 3.5 - 5.2 g/dL 04/02/2014 1:09 PM SAMPLE STITCHER [facility] HISTORICAL RESULTS Globulin 2.6 2.3 - 3.5 gm/dL Albumin/Globulin Ratio 1.6 1.1 - 1.8 Total Bilirubin 0.2 0.0 - 1.2 mg/dL 04/02/2014 1:09 PM SAMPLE STITCHER [facility] HISTORICAL RESULTS AST 30 0 - 32 U/L Comment: SPECIMEN SLIGHTLY HEMOLYZED: Hemolysis interferes with the above test. ALT 39(H) 0 - 33 U/L Alkaline Phosphatase 67 35 - 104 U/L 04/02/2014 12:3 1 PM SAMPLE STITCHER 04/02/2014 12:33 PM SAMPLE STITCHER [facility] BLOOD ORDERABLES Final Re sult [facility] HISTORICAL RESULTS * (ABNORMAL) CBC with auto differential (04/02/2014 12:31 PM SAMPLE STITCHER) WBC 7.6 4.6 - 10.2 x10 3/ul 04/02/2014 12:41 PM [facility] RBC 4.78 3.76 - 4.80 x10 6/ul 04/02/2014 12:41 PM [facility] HISTOR[facility] RESULTS Hemoglobin 14.4 11.0 - 15.0 g/dl Hct 43.4(H) 33.0 - 43.0 % MCV 90.8 80.0 - 97.0 fl MCH 30.1 27.0 - 31.2 pg MCHC 33.2 31.8 - 35.4 g/dl 04/02/2014 12:41 PM [facility] HISTOR[facility] RESULTS RDW 12.5 11.6 - 14.8 % Plt Count 291 124 - 400 x10 3/ul MPV 8.7 7.4 - 10.4 fl 04/02/2014 12:41 PM [facility]ISTOR[facility] RES[facility] Differential Method AUTOMATED DIFF --------- -- 04/02/2014 12:41 PM [facility]IST[facility] RESULTS Neut % 57.9 37.0 - 85.0 % 04/02/2014 12:41 PM [facility]IST[facility] RESULTS Immature Gran % 0.5 0.0 - 3.0 % 04/02/2014 12:41 PM [facility] HISTOR[facility] RESULTS Lymph % 31.9 5.0 - 45.0 % 04/02/2014 12:41 PM [facility] HISTORICAL RESULTS [place] % 6.7 3.0 - 15.0 % 04/02/2014 12:41 PM [facility] HISTORICAL RESULTS Eos % 1.7 0.0 - 7.0 % 04/02/2014 12:41 PM [facility] HISTOR[facility] RESULTS Baso % 1.3 0.0 - 2.0 % 04/02/2014 12:41 PM [facility]ISTOR[facility] RESULTS ABSOLUTE COUNTS ABSOLUTE COUNTS --------- -- 04/02/2014 12:41 PM [facility]ISTOR[facility] RESULTS Absolute Neuts (auto) 4.4 1.7 - 8.7 x10 3/ul 04/02/2014 12:41 PM SAMPLE STITCHER [facility] [email or web address] [facility] Immature Gran # 0.0 0.0 - 0.3 x10 3/ul 04/02/2014 12:41 PM SAMPLE STITCHER [facility] HISTORICAL RESULTS Absolute Lymphs (auto) 2.4 0.2 - 4.6 x10 3/ul 04/02/2014 12:41 PM SAMPLE STITCHER [facility] HISTORICAL RESULTS Absolute Monos (auto) 0.5 0.1 - 1.5 x10 3/ul 04/02/2014 12:41 PM SAMPLE STITCHER [facility] HISTORICAL RESULTS Absolute Eos (auto) 0.1 0.0 - 0.7 x10 3/ul 04/02/2014 12:41 PM SAMPLE STITCHER [facility] HISTORICAL RESULTS Absolute Basos (auto) 0.1 0.0 - 0.2 x10 3/ul 04/02/2014 12:41 PM SAMPLE STITCHER [facility] HISTORICAL RESULTS 04/02/2014 12:3 1 PM SAMPLE STITCHER 04/02/2014 12:33 PM SAMPLE STITCHER [facility] BLOOD ORDERABLES Final Re sult [facility] HISTORICAL RESULTS * CT Abdomen Pelvis W Contrast (04/02/2014 12:00 AM SAMPLE STITCHER) Anatomical Region Laterality Modality Body N/A Computed Tomogra phy 04/02/2014 Impressions 04/02/2014 2:19 PM SAMPLE STITCHER ??1. ??No acute inflammatory abnormality within the [...] PM BM [EOD] Narrative 04/02/2014 2:19 PM SAMPLE STITCHER EXAMINATION: ??CT abdomen pelvis with contrast. HISTORY: [...] Montano M.D. CH: 02:14 PM 02:14 PM [facility] [EOD] Lana VALLE IMJuanis CT PROCEDURES Final Resul t documented in this encounter Visit Diagnoses Diagnosis Gastritis and gastroduodenitis Unspecified gastritis and gastroduodenitis without mention of hemorrhage Tobacco use disorder documented in this encounter
--- OUTSIDE RECORDS SUMMARY | 2024-04-29 20:21 | XMS_ITS | Encounter Summary ---
Author Organization [facility] Facility Care Team Providers Care Full Stack Developer Name Role Phone Unavailable Primary Care Provider Unavailabl e Encounter Details Date Type Department Care Team (Latest Contact Info) Description 03/02/2010 6:14 PM ROUSTABOUT SUPERVISOR - 03/03/2010 9:08 PM ROUSTABOUT SUPERVISOR Hospital Encounter [facility] Oswaldo Sage, DO [address] [facility] [address] [place] [address] Abdominal pain, right upper quadrant; Acute gastritis; Degeneration of intervertebral disc Social History Tobacco Use Types Packs/Day Years Used Date Smoking Tobacco: Never Assessed Comments Unknown Sex and Gender Information Value Date Recorded Sex Assigned at Not on file Legal Sex Female 9:24 PM ROUSTABOUT SUPERVISOR Gender Identity Female 08/14/2022 11:32 AM [...]
== END 2024-04-23 06:25 | disposition home or self-care (01) ==
PROVIDERS: Emergency Provider Emergency Medicine; PCP Internal Medicine
DX: J40 Bronchitis, not specified as acute or chronic (principal); Z20.822 Contact with and (suspected) exposure to COVID-19; E67.3 Hypervitaminosis D; K58.9 Irritable bowel syndrome, unspecified; K58.1 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 syndrome with constipation; L40.9 Psoriasis, unspecified; M06.9 Rheumatoid arthritis, unspecified; M17.0 Bilateral primary osteoarthritis of knee; M47.816 Spondylosis without myelopathy or radiculopathy, lumbar region; M81.0 Age-related osteoporosis without current pathological fracture; G89.4 Chronic pain syndrome; F41.1 Generalized anxiety disorder; Q79.60 Ehlers-Danlos syndrome, unspecified; Z87.440 Personal history of urinary (tract) infections; Z87.11 Personal history of peptic ulcer disease; Z87.442 Personal history of urinary calculi; Z87.01 Personal history of pneumonia (recurrent); Z87.891 Personal history of nicotine dependence; Z79.899 Other long term (current) drug therapy
CPT/HCPCS: 36415; 71045; 71275; 80053; 83690; 83880; 84484; 85025; 85610; 85730; 87637; 93005; 96361; 96374; 96375; 99284; J1171; J1885; J7030; Q9967

== ENCOUNTER 2024-04-30 01:15 | Day surgery (SDC) | payer BC, SELFPAY ==
[2024-04-29 13:14] VITALS: BMI 38.3
[2024-04-30 07:30] VITALS: BP 153/92; PULSE 108; RESP 20; TEMP 36.1; O2SAT 98
[2024-04-30 07:41] VITALS: BMI 38.1
--- NOTE | 2024-04-30 08:07 | P.PNAN_ITS ---
Anes - Initial Pre Proc Eval Procedure: Operation Date: 04/30/24 08:30 Proposed Procedures p Esophagogastroduodenoscopy - Gagandeep Bauman MD Date/Time: 04/30/24 08:07 Surgeon: Gagandeep Bauman MD Pre Op Diagnosis: Dysphagia,GERD Patient Data Age: 48 Gender: F Height: 1.65 m Weight: 104 kg Last Vital Signs Temp 36.1 C L 04/30/24 07:30 Pulse 108 H 04/30/24 07:30 Resp 20 04/30/24 07:30 BP 153/92 H 04/30/24 07:30 Pulse Ox 98 04/30/24 07:30 O2 Del Method Room Air 04/30/24 07:30 Allergies Allergy/AdvReac Type Severity Reaction Status Date / Time No Known Allergies Allergy Verified 04/30/24 07:39 Home Medications ?Medication ?Instructions ?Recorded ?Confirmed ?Type bupropion HCl 300 mg 24 hr tablet, 300 mg PO DAILY 05/02/20 04/30/24 History extended release (Wellbutrin XL) potassium citrate 15 mEq (1,620 1,620 mg PO BID 05/02/20 04/30/24 History mg) tablet,extended release propranolol 10 mg tablet 10 mg PO QAM 05/02/20 04/30/24 History trazodone 100 mg tablet 100 mg PO HS 05/02/20 04/30/24 History alprazolam 0.5 mg tablet 0.5 mg PO TID PRN Anxiety 09/15/20 04/30/24 History cholecalciferol (vitamin D3) 125 5,000 unit PO DAILY 09/15/20 04/30/24 History mcg (5,000 unit) tablet (Vitamin D3) cyanocobalamin (vitamin B-12) 1,000 mcg PO DAILY 09/15/20 04/30/24 History 1,000 mcg tablet pantoprazole 40 mg tablet,delayed See Rx Instructions .Route 12/20/23 04/30/24 Rx release .COMPLEX #60 tabs ibuprofen 200 mg capsule (Motrin 600 mg (3 x 200 mg) PO Q8H PRN 01/04/24 04/29/24 Rx IB) pain #30 caps sumatriptan succinate 6 mg/0.5 mL See Rx Instructions .Route 10/29/24 01/09/25 Rx subcutaneous pen injector .COMPLEX #2 mL ondansetron HCl 4 mg tablet 4 - 8 mg (1 - 2 x 4 mg) PO Q8H PRN 03/20/24 04/30/24 Rx nausea and vomiting #20 tabs dicyclomine 20 mg tablet 20 mg PO TID PRN abdominal pain 04/20/24 04/30/24 Rx #120 tabs sucralfate 1 gram tablet See Rx Instructions .Route 04/20/24 04/30/24 Rx .COMPLEX #120 tabs metoclopramide HCl 10 mg tablet See Rx Instructions PO .COMPLEX 04/21/24 04/30/24 Rx (Reglan) nausea and vomiting #30 tabs sucralfate 100 mg/mL oral 1 g (10 mL) PO ACHS #60 mL 04/21/24 04/29/24 Rx suspension (Carafate) hydrocodone 5 mg-acetaminophen 325 1 tablet PO Q8H PRN pain #75 tabs 04/23/24 04/30/24 Rx mg tablet benzonatate 200 mg capsule 200 mg PO TID PRN cough #30 caps 04/28/24 04/30/24 Rx semaglutide (weight loss) 0.25 0.25 mg (0.5 mL) subcut WEEKLY #2 04/28/24 04/30/24 Rx mg/0.5 mL subcutaneous pen mL injector (Shiloh) duloxetine 30 mg capsule,delayed 30 mg PO DAILY 04/29/24 04/30/24 History release Patient hx anesthesia problems: none Family hx anesthesia problems: none Results Review: All pre-operative results and documents have been reviewed as part of the pre- operative evaluation. [facility] Past Medical History Medical History Aspiration into airway Colon cancer screening Elevated lipase Decreased appetite LLQ pain Arthritis Osteoporosis Psoriasis Excessive thirst UTI (urinary tract infection) IBS (irritable bowel syndrome) Atrial tachycardia Hoarseness Short-term memory loss Chills History of kidney stones Abdominal pain in female Abnormal serum lipase level Abnormal weight gain Acute cystitis without hematuria Acute diverticulitis Acute non-recurrent pansinusitis Acute shoulder pain Adult idiopathic generalized osteoporosis Age-related osteoporosis with current pathological fracture, unspecified ankle and foot, initial encounter for fracture Anemia Anxiety Arthralgia Arthritis of both knees Bilateral tinnitus Body mass index (bmi) 39.0-39.9, adult (01/12/19) Bone spur of left foot Chronic migraine Chronic narcotic use Chronic pain syndrome Cyst of ovary Diarrhea Dietary counseling and surveillance (08/25/15) Diverticulitis of large intestine without perforation or abscess Diverticulosis of intestine, part unspecified, without perforation or abscess with bleeding Duodenal ulcer Dysphagia Dysuria Meredith-Danlos syndrome Epigastric pain Establishing care with new doctor, encounter for Fatigue Fear of flying Fibromyalgia Gastric ulcer Gastroesophageal reflux disease Generalized abdominal pain Generalized anxiety disorder History of dislocation of knee Hyperextension deformity of knee Hyperthyroidism Hypokalemia Hypovitaminosis D Immunosuppressed status Impingement syndrome of right shoulder Irregular menses 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 syndrome with constipation 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 diarrhea MCC use of drug Low TSH level Low back pain Luteal cystic ovary disease Microscopic hematuria Migraine, unspecified, not intractable, without status migrainosus Multinodular goiter Muscle weakness of lower extremity Musculoskeletal pain Nausea Nephrolithiasis Nonintractable migraine Osteoarthritis of spine with radiculopathy, lumbar region Other chronic pain Overweight (11/22/16) PUD (peptic ulcer disease) Pain in both hands Pain of both hip joints Pain of left heel Pneumonia due to infectious organism Polyuria Prepatellar bursitis of both knees Prepatellar bursitis, left knee Rheumatoid arthritis of multiple sites with negative rheumatoid factor Rheumatoid arthritis of unspecified site with involvement of other organs and systems Right lower quadrant abdominal pain Swelling Swelling of finger joint of left hand Thyroid nodule Urinary symptom or sign Urinary tract infection without hematuria Weight loss Yeast vaginitis Surgical History Surgical History History of hysterectomy 2022 History of knee surgery ANUSHA reconstruction. History of lithotripsy x4. Previous section History of colonoscopy History of tonsillectomy Family History Family History Mother Patient's mother is in good health Family history of arthritis Father Patient's father is in good health Family history of alcoholism Family history of arthritis Family history of obesity Family history of chronic obstructive pulmonary disease Sibling Patient's sister is in good health Patient's brother is in good health Grandparent Family history of Alzheimer's disease Family history of lung cancer Other Family history of attention deficit hyperactivity disorder (ADHD) Social History Social History Smoking packs per day: 0.5 Smoking cigarettes per day: 10.0 Years smoked: 20 Smoking pack-years: 10.00 Smoking status: Former smoker Tobacco type: cigarettes Second hand tobacco smoke exposure: Yes Smoking end date: 12/31/12 Alcohol intake: current Drinks per week: 2 Alcohol use details: 2/MONTH Substance use: never Substance use type: does not use Other substance usage details: STOPPED GUMMIES MAY 2023 Do You Feel Safe in your Home?: Yes Lack of Transportation: No Lack of Food: Never True Current Housing: I Have Housing Concerned About Future Housing: No Difficulty Paying Gas/Electric Bills: No Difficulty Paying for Meds: No Currently Unemployed: No Education: Bachelor's Degree Difficulty w/ Childcare or Family Care: No Living arrangements: with family Additional living arrangements comments: AND CHILDREN Occupation/Education: retired 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 Gender identity (if verbalized by the patient): Female Sexual Orientation (if Verbalized by the Patient): Straight or Heterosexual Spiritual care concerns: No Anes - Eval Final PreProcedure Day of Procedure 04/30/24 08:07 Patient weight: obese Heart: regular rate and rhythm Lungs: clear to auscultation Airway: Mallampati scale class III Neurological: alert and oriented Last oral intake: >/= 8 hours ASA classification: IV Emergent: no Anesthetic plan: proceed Anesthesia type and monitoring: general GIVS and standard monitoring Results Review: All pre-operative results and documents have been reviewed as part of the pre- operative evaluation. Informed Consent: The patient's anesthetic plan and its attendant risks and benefits were discussed with the patient/family/POA. Questions were solicited and answers provided to the satisfaction of the patient/family/POA.
[2024-04-30] MEDS: LACTATED RINGERS 1,000 ML 150 ML IV CONT (08:10)
--- NOTE | 2024-04-30 08:25 | PM.IMHP ---
H&P: HPI History of Present Illness Date/Time: 04/30/24 08:25 Chief Complaint: GERD Narrative: this patient has several years with recurrent heartburn which has gotten worse over the past year. Besides having daily heartburn episodes, she has frequent nighttime regurgitation and has even been hospitalized twice for aspiration pneumonia. She takes pantoprazole 40 mg b.i.d. and sucralfate 1 dose before bedtime. She has been scoped approximately 2 years ago and was told she has a hiatal hernia. Review of Systems Review of Systems: All systems reviewed & are unremarkable except as noted in HPI and below [facility] Past Medical History Medical History Aspiration into airway Colon cancer screening Elevated lipase Decreased appetite LLQ pain Arthritis Osteoporosis Psoriasis Excessive thirst UTI (urinary tract infection) IBS (irritable bowel syndrome) Atrial tachycardia Hoarseness Short-term memory loss Chills History of kidney stones Abdominal pain in female Abnormal serum lipase level Abnormal weight gain Acute cystitis without hematuria Acute diverticulitis Acute non-recurrent pansinusitis Acute shoulder pain Adult idiopathic generalized osteoporosis Age-related osteoporosis with current pathological fracture, unspecified ankle and foot, initial encounter for fracture Anemia Anxiety Arthralgia Arthritis of both knees Bilateral tinnitus Body mass index (bmi) 39.0-39.9, adult (01/12/19) Bone spur of left foot Chronic migraine Chronic narcotic use Chronic pain syndrome Cyst of ovary Diarrhea Dietary counseling and surveillance (08/25/15) Diverticulitis of large intestine without perforation or abscess Diverticulosis of intestine, part unspecified, without perforation or abscess with bleeding Duodenal ulcer Dysphagia Dysuria Meredith-Danlos syndrome Epigastric pain Establishing care with new doctor, encounter for Fatigue Fear of flying Fibromyalgia Gastric ulcer Gastroesophageal reflux disease Generalized abdominal pain Generalized anxiety disorder History of dislocation of knee Hyperextension deformity of knee Hyperthyroidism Hypokalemia Hypovitaminosis D Immunosuppressed status Impingement syndrome of right shoulder Irregular menses 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 syndrome with constipation 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 diarrhea 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 Low TSH level Low back pain Luteal cystic ovary disease Microscopic hematuria Migraine, unspecified, not intractable, without status migrainosus Multinodular goiter Muscle weakness of lower extremity Musculoskeletal pain Nausea Nephrolithiasis Nonintractable migraine Osteoarthritis of spine with radiculopathy, lumbar region Other chronic pain Overweight (11/22/16) PUD (peptic ulcer disease) Pain in both hands Pain of both hip joints Pain of left heel Pneumonia due to infectious organism Polyuria Prepatellar bursitis of both knees Prepatellar bursitis, left knee Rheumatoid arthritis of multiple sites with negative rheumatoid factor Rheumatoid arthritis of unspecified site with involvement of other organs and systems Right lower quadrant abdominal pain Swelling Swelling of finger joint of left hand Thyroid nodule Urinary symptom or sign Urinary tract infection without hematuria Weight loss Yeast vaginitis Surgical History Surgical History History of hysterectomy 2022 History of knee surgery ANUSHA reconstruction. History of lithotripsy x4. Previous section History of colonoscopy History of tonsillectomy Family History Family History Mother Patient's mother is in good health Family history of arthritis Father Patient's father is in good health Family history of alcoholism Family history of arthritis Family history of obesity Family history of chronic obstructive pulmonary disease Sibling Patient's sister is in good health Patient's brother is in good health Grandparent Family history of Alzheimer's disease Family history of lung cancer Other Family history of attention deficit hyperactivity disorder (ADHD) Social History Social History Smoking packs per day: 0.5 Smoking cigarettes per day: 10.0 Years smoked: 20 Smoking pack-years: 10.00 Smoking status: Former smoker Tobacco type: cigarettes Second hand tobacco smoke exposure: Yes Smoking end date: 12/31/12 Alcohol intake: current Drinks per week: 2 Alcohol use details: 2/MONTH Substance use: never Substance use type: does not use Other substance usage details: STOPPED GUMMIES MAY 2023 Do You Feel Safe in your Home?: Yes Lack of Transportation: No Lack of Food: Never True Current Housing: I Have Housing Concerned About Future Housing: No Difficulty Paying Gas/Electric Bills: No Difficulty Paying for Meds: No Currently Unemployed: No Education: Bachelor's Degree Difficulty w/ Childcare or Family Care: No Living arrangements: with family Additional living arrangements comments: AND CHILDREN 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/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 Gender identity (if verbalized by the patient): Female Sexual Orientation (if Verbalized by the Patient): Straight or Heterosexual Spiritual care concerns: No Meds Home Medications and Allergies Home Medications ?Medication ?Instructions ?Recorded ?Confirmed ?Type bupropion HCl 300 mg 24 hr tablet, 300 mg PO DAILY 05/02/20 04/30/24 History extended release (Wellbutrin XL) potassium citrate 15 mEq (1,620 1,620 mg PO BID 05/02/20 04/30/24 History mg) tablet,extended release propranolol 10 mg tablet 10 mg PO QAM 05/02/20 04/30/24 History trazodone 100 mg tablet 100 mg PO HS 05/02/20 04/30/24 History alprazolam 0.5 mg tablet 0.5 mg PO TID PRN Anxiety 09/15/20 04/30/24 History cholecalciferol (vitamin D3) 125 5,000 unit PO DAILY 09/15/20 04/30/24 History mcg (5,000 unit) tablet (Vitamin D3) cyanocobalamin (vitamin B-12) 1,000 mcg PO DAILY 09/15/20 04/30/24 History 1,000 mcg tablet pantoprazole 40 mg tablet,delayed See Rx Instructions .Route 12/20/23 04/30/24 Rx release .COMPLEX #60 tabs ibuprofen 200 mg capsule (Motrin 600 mg (3 x 200 mg) PO Q8H PRN 01/04/24 04/29/24 Rx IB) pain #30 caps sumatriptan succinate 6 mg/0.5 mL See Rx Instructions .Route 02/18/24 04/30/24 Rx subcutaneous pen injector .COMPLEX #2 mL ondansetron HCl 4 mg tablet 4 - 8 mg (1 - 2 x 4 mg) PO Q8H PRN 03/20/24 04/30/24 Rx nausea and vomiting #20 tabs dicyclomine 20 mg tablet 20 mg PO TID PRN abdominal pain 04/20/24 04/30/24 Rx #120 tabs sucralfate 1 gram tablet See Rx Instructions .Route 04/20/24 04/30/24 Rx .COMPLEX #120 tabs metoclopramide HCl 10 mg tablet See Rx Instructions PO .COMPLEX 04/21/24 04/30/24 Rx (Reglan) nausea and vomiting #30 tabs sucralfate 100 mg/mL oral 1 g (10 mL) PO ACHS #60 mL 04/21/24 04/29/24 Rx suspension (Carafate) hydrocodone 5 mg-acetaminophen 325 1 tablet PO Q8H PRN pain #75 tabs 04/23/24 04/30/24 Rx mg tablet benzonatate 200 mg capsule 200 mg PO TID PRN cough #30 caps 04/28/24 04/30/24 Rx semaglutide (weight loss) 0.25 0.25 mg (0.5 mL) subcut WEEKLY #2 04/28/24 04/30/24 Rx mg/0.5 mL subcutaneous pen mL injector (Wegovy) duloxetine 30 mg capsule,delayed 30 mg PO DAILY 04/29/24 04/30/24 History release Allergies Allergy/AdvReac Type Severity Reaction Status Date / Time No Known Allergies Allergy Verified 04/30/24 07:39 Vital Signs Vital Signs - 24 hr 04/30/24 07:30 Temperature 96.9 F L Pulse Rate 108 H Respiratory Rate 20 Blood Pressure 153/92 H Pulse Oximetry 98 Oxygen Delivery Room Air Exam Const: General: cooperative and healthy appearing Resp: Effort & Inspection: normal respiratory effort and able to speak in complete sentences Auscultation: clear to auscultation bilaterally Cardio: Rate: regular rate Rhythm: regular rhythm GI: Inspection: normal to inspection GI Palp: No No hepatosplenomegaly present Auscultation: normal bowel sounds Rectal Exam: deferred Skin: General skin exam: normal color Psych: Appearance: grossly normal Mental Status: mental status grossly normal Assessment and Plan Assessment and plan (1) Gastroesophageal reflux disease: Qualifiers: Esophagitis presence: esophagitis presence not specified Qualified Code(s): K21.9 - Gastro-esophageal reflux disease without esophagitis Code(s): K21.9 - Gastro-esophageal reflux disease without esophagitis Status: Acute Assessment and Plan: The patient is deemed a good candidate for the procedure. Consent signed. Will proceed.
[2024-04-30] MEDS: BENZOCAINE (*SP) 60 ML SPRAY CAN (HURRICAINE) 1 SPRAY MUCOUS MEM (08:29)
[2024-04-30 08:35] VITALS: BP 107/70; PULSE 88; RESP 21; O2SAT 97
[2024-04-30 08:45] VITALS: BP 106/68; PULSE 86; RESP 25; O2SAT 97
[2024-04-30 08:55] VITALS: BP 119/66; PULSE 82; RESP 16; O2SAT 97
== END 2024-04-30 09:15 | disposition home or self-care (01) ==
PROVIDERS: PCP Internal Medicine; Referring Provider Nurse Practitioner; Visit Provider Internal Medicine Gastroenterology
PROC: 0DJ08ZZ Inspection of Upper Intestinal Tract, Via Natural or Artificial Opening Endoscopic (ICD-10-PCS; CPT 43235; principal; 2024-04-30 08:30)
DX: K21.9 Gastro-esophageal reflux disease without esophagitis (principal); K44.9 Diaphragmatic hernia without obstruction or gangrene; D64.9 Anemia, unspecified; F41.9 Anxiety disorder, unspecified; M17.0 Bilateral primary osteoarthritis of knee; E87.6 Hypokalemia; E55.9 Vitamin D deficiency, unspecified; K58.1 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 syndrome with constipation; G43.709 Chronic migraine without aura, not intractable, without status migrainosus; M81.8 Other osteoporosis without current pathological fracture; L40.9 Psoriasis, unspecified; K58.9 Irritable bowel syndrome, unspecified; I47.19 Other supraventricular tachycardia; R41.3 Other amnesia; G89.4 Chronic pain syndrome; Q79.60 Ehlers-Danlos syndrome, unspecified; E05.90 Thyrotoxicosis, unspecified without thyrotoxic crisis or storm; E66.9 Obesity, unspecified; Z68.38 Body mass index [BMI] 38.0-38.9, adult; Z79.899 Other long term (current) drug therapy; Z79.891 Long term (current) use of opiate analgesic; Z79.1 Long term (current) use of non-steroidal anti-inflammatories (NSAID); Z79.85 Long-term (current) use of injectable non-insulin antidiabetic drugs; Z98.890 Other specified postprocedural states; Z87.891 Personal history of nicotine dependence; Z87.442 Personal history of urinary calculi; Z87.19 Personal history of other diseases of the digestive system; Z80.1 Family history of malignant neoplasm of trachea, bronchus and lung
CPT/HCPCS: 43235; J2003; J2704; J7120

== ENCOUNTER 2024-05-09 07:09 | Emergency (ER) | payer BC, SELFPAY ==
--- NOTE | ~2024-05-09 | CT_ITS ---
EXAMINATION: CT abdomen pelvis wo con DATE: 05/09/2024 08:58 INDICATION: Flank pain. Hematuria. TECHNIQUE: Computed tomography (CT) of the abdomen and pelvis was performed without intravenous contr ast. Automated exposure control and iterative reconstruction technique were employed. The dose-length product was 507.93 mGy-cm. COMPARISON: CT abdomen and pelvis 01/04/2024, 06/12/22 FINDINGS: The visualized portions of lung bases demonstrate mild atelectasis. Calcified left hilar ly mph nodes are consistent with old granulomatous disease. No pleural effusion. The heart size is amadou l. No pericardial effusion. There is a small sliding hiatal hernia. There are two 15 mm masses in rig ht hepatic lobe that were hyperenhancing on prior CTs, stable from 06/12/22, likely focal nodular hype rplasia or hemangiomas. Calcifications in the spleen are consistent with old granulomatous disease. T he gallbladder, pancreas, and adrenal glands are normal. There is bilateral medullary nephrocalcinosi s. There are approximately 10 stones in right kidney measuring up to 4 mm. There are cysts in left ki dney measuring up to 2.3 cm. There are 2 stones in left kidney measuring up to 4 mm. There is diverti culosis of the colon without evidence of diverticulitis. The appendix is normal. There are no dilated loops of bowel. There are no pathologically enlarged lymph nodes. There is no free intraperitoneal f luid. There is mild thoracic and lumbar spondylosis. IMPRESSION: 1. Bilateral nonobstructing kidney stones. 2. Small sliding hiatal hernia. Reviewed, dictated and finalized at location A. ASSISTANT
[2024-05-09 07:19] VITALS: BP 155/66; PULSE 110; RESP 16; TEMP 36; O2SAT 100
[2024-05-09 07:26] VITALS: BP 156/86; PULSE 110; RESP 18; TEMP 36.7; O2SAT 98
[2024-05-09 08:06] LABS: Basophils Absolute Auto 0.1 K/mm3 (0.0-0.1); Basophils Percent Auto 0.9 % (0.2-1.2); Eosinophils Absolute Auto 0.1 K/mm3 (0-0.3); Eosinophils Percent Auto 1.6 % (0-4.4); Hematocrit 38.1 % (37.0-47.0); Hemoglobin 11.8 g/dL (12.0-15.0); Immature Granulocyte Absolute 0.03 K/mm3 (0.00-0.031); Immature Granulocyte Percent A 0.4 % (0-0.5); Lymphocytes Percent Auto 25.2 % (18.3-44.2); Mean Corpuscular Volume 80.7 fl (80-100); Mean Platelet Volume 8.9 fl (7.4-10.4); Monocytes Absolute Auto 0.4 K/mm3 (0.1-0.6); Monocytes Percent Auto 6.2 % (2.6-8.5); Neutrophils Absolute Auto 4.4 K/mm3 (1.3-6.7); Neutrophils Percent Auto 65.7 % (45.5-73.1); Platelet Count Result 378 k/mm3 (150-375); Red Blood Count 4.72 M/mm3 (4.2-5.4); Red Cell Distribution Width 15.4 % (11.5-14.5); White Blood Count 6.8 K/mm3 (4.5-10.0)
[2024-05-09 08:08] LABS: Add Urine Microscopic? NO; Appearance Urine Clear (Clear); Bilirubin Urine Negative (Negative); Blood Urine Negative (Negative); Color Urine Yellow (Yellow); Glucose Urine UA Negative (Negative); Ketones Urine Negative (Negative); Leukocyte Esterase Ur Negative LEU/UL (Negative); Nitrate Urine Negative (Negative); Protein Urine Negative (Negative); pH Urine 5.5 (5.0-9.0)
[2024-05-09 08:25] LABS: Alanine Aminotransferase 67 U/L (6-35); Albumin Level 4.3 g/dL (3.5-5.1); Alkaline Phosphatase 92 U/L (38-126); Anion Gap 10 mmol/L (4-12); Aspartate Amino Transferase 41 U/L (14-36); Bilirubin,Total 0.5 mg/dL (0.2-1.3); Blood Urea Nitrogen 15 mg/dL (7-17); Calcium 9.1 mg/dL (8.4-10.2); Carbon Dioxide 23 mmol/L (22-30); Chloride 104 mmol/L (98-107); Estimated CRCL calculation 71 ml/min; Estimated Glomerular Filt Rate > 60; Glucose 98 mg/dL (65-110); Potassium 4.1 mmol/L (3.4-5.0); Sodium 137 mmol/L (137-145)
[2024-05-09 08:52] LABS: INR 0.9; Prothrombin Time 12.9 Seconds (11.1-14.7)
[2024-05-09 08:53] LABS: Partial Thromboplastin Time 27.5 Seconds (22.3-36.8)
--- NOTE | 2024-05-09 09:09 | ED.GENADULT ---
HPI - General Adult General Chief complaint: Urogenital-Female Stated complaint: bilateral flank pain, worse on the left Time Seen by Provider: 05/09/24 07:40 History of Present Illness HPI narrative: 38-year-old female history of kidney stones presenting to the emergency department for evaluation for 2 weeks of left flank pain. Patient reports he does have bilateral flank pain but is worse on the left than the right. Patient states she did notice some dark urine a few days ago and suspected she had a kidney stone. Patient does report sharp flaying on the left that if worsened with palpation. Patient also states that she does have some intermittent dizziness and lightheadedness. Patient suspects she may have some dehydration. Related Data Home Medications ?Medication ?Instructions ?Recorded ?Confirmed ?Last Taken ?Type bupropion HCl 300 mg 24 hr tablet, 300 mg PO DAILY 05/02/20 04/30/24 04/29/24 History extended release (Wellbutrin XL) potassium citrate 15 mEq (1,620 1,620 mg PO BID 05/02/20 04/30/24 04/29/24 History mg) tablet,extended release propranolol 10 mg tablet 10 mg PO QAM 05/02/20 04/30/24 04/30/24 History trazodone 100 mg tablet 100 mg PO HS 05/02/20 04/30/24 04/29/24 History alprazolam 0.5 mg tablet 0.5 mg PO TID PRN Anxiety 09/15/20 04/30/24 04/30/24 History cholecalciferol (vitamin D3) 125 5,000 unit PO DAILY 09/15/20 04/30/24 04/29/24 History mcg (5,000 unit) tablet (Vitamin D3) cyanocobalamin (vitamin B-12) 1,000 mcg PO DAILY 09/15/20 04/30/24 04/29/24 History 1,000 mcg tablet duloxetine 30 mg capsule,delayed 30 mg PO DAILY 04/29/24 04/30/24 04/29/24 History release Allergies Allergy/AdvReac Type Severity Reaction Status Date / Time No Known Allergies Allergy Verified 05/09/24 07:10 Review of Systems Review of Systems: All systems reviewed & are unremarkable except as noted in HPI and below PMFSH Past Medical History Medical History Aspiration into airway Colon cancer screening Elevated lipase Decreased appetite LLQ pain Arthritis Osteoporosis Psoriasis Excessive thirst UTI (urinary tract infection) IBS (irritable bowel syndrome) Atrial tachycardia Hoarseness Short-term memory loss Chills History of kidney stones Abdominal pain in female Abnormal serum lipase level Abnormal weight gain Acute cystitis without hematuria Acute diverticulitis Acute non-recurrent pansinusitis Acute shoulder pain Adult idiopathic generalized osteoporosis Age-related osteoporosis with current pathological fracture, unspecified ankle and foot, initial encounter for fracture Anemia Anxiety Arthralgia Arthritis of both knees Bilateral tinnitus Body mass index (bmi) 39.0-39.9, adult (01/12/19) Bone spur of left foot Chronic migraine Chronic narcotic use Chronic pain syndrome Cyst of ovary Diarrhea Dietary counseling and surveillance (08/25/15) Diverticulitis of large intestine without perforation or abscess Diverticulosis of intestine, part unspecified, without perforation or abscess with bleeding Duodenal ulcer Dysphagia Dysuria Meredith-Danlos syndrome Epigastric pain Establishing care with new doctor, encounter for Fatigue Fear of flying Fibromyalgia Gastric ulcer Gastroesophageal reflux disease Generalized abdominal pain Generalized anxiety disorder History of dislocation of knee Hyperextension deformity of knee Hyperthyroidism Hypokalemia Hypovitaminosis D Immunosuppressed status Impingement syndrome of right shoulder Irregular menses 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 syndrome with constipation 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 Low TSH level Low back pain Luteal cystic ovary disease Microscopic hematuria Migraine, unspecified, not intractable, without status migrainosus Multinodular goiter Muscle weakness of lower extremity Musculoskeletal pain Nausea Nephrolithiasis Nonintractable migraine Osteoarthritis of spine with radiculopathy, lumbar region Other chronic pain Overweight (11/22/16) PUD (peptic ulcer disease) Pain in both hands Pain of both hip joints Pain of left heel Pneumonia due to infectious organism Polyuria Prepatellar bursitis of both knees Prepatellar bursitis, left knee Rheumatoid arthritis of multiple sites with negative rheumatoid factor Rheumatoid arthritis of unspecified site with involvement of other organs and systems Right lower quadrant abdominal pain Swelling Swelling of finger joint of left hand Thyroid nodule Urinary symptom or sign Urinary tract infection without hematuria Weight loss Yeast vaginitis Surgical History Surgical History History of hysterectomy 2022 History of knee surgery ANUSHA reconstruction. History of lithotripsy x4. Previous section History of colonoscopy History of tonsillectomy Family History Family History Mother Patient's mother is in good health Family history of arthritis Father Patient's father is in good health Family history of alcoholism Family history of arthritis Family history of obesity Family history of chronic obstructive pulmonary disease Sibling Patient's sister is in good health Patient's brother is in good health Grandparent Family history of Alzheimer's disease Family history of lung cancer Other Family history of attention deficit hyperactivity disorder (ADHD) Social History Social History Smoking packs per day: 0.5 Smoking cigarettes per day: 10.0 Years smoked: 20 Smoking pack-years: 10.00 Smoking status: Former smoker Tobacco type: cigarettes Second hand tobacco smoke exposure: Yes Smoking end date: 12/31/12 Alcohol intake: current Drinks per week: 2 Alcohol use details: 2/MONTH Substance use: never Substance use type: does not use Other substance usage details: STOPPED GUMMIES MAY 2023 Do You Feel Safe in your Home?: Yes Lack of Transportation: No Lack of Food: Never True Current Housing: I Have Housing Concerned About Future Housing: No Difficulty Paying Gas/Electric Bills: No Difficulty Paying for Meds: No Currently Unemployed: No Education: Bachelor's Degree Difficulty w/ Childcare or Family Care: No Living arrangements: with family Additional living arrangements comments: AND CHILDREN 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 HEAD: normocephalic, atraumatic. EYES: PERRLA/EOMI, conjunctivae clear. NOSE: Normal no drainage EARS:TMS clear with good light reflex. THROAT: Pharynx clear, no exudate. NECK: Supple. No adenopathy, no masses. RESPIRATORY: Airway patent, respirations nonlabored. Clear to auscultation bilaterally, no rales, rhonchi, wheezing. CARDIOVASCULAR: Regular rate and rhythm without murmurs rubs or gallops. ABDOMINAL: Soft, nontender, nondistended, normal bowel sounds MUSCULOSKELETAL: Left lateral CVA tenderness to palpation NEURO: Alert. Cranial nerves II through XII intact. Good gait. Good coordination SKIN: Warm, dry. Normal Color Course Vital Signs Vital signs: Vital Signs Temperature 96.8 F L 05/09/24 07:19 Pulse Rate 110 H 05/09/24 07:19 Respiratory Rate 16 05/09/24 07:19 Blood Pressure 155/66 H 05/09/24 07:19 Pulse Oximetry 100 05/09/24 07:19 Oxygen Delivery Room Air 05/09/24 07:19 Temperature 98.7 F 05/09/24 11:03 Pulse Rate 88 05/09/24 11:03 Respiratory Rate 16 05/09/24 11:03 Blood Pressure 117/83 05/09/24 11:03 Pulse Oximetry 96 05/09/24 11:03 Oxygen Delivery Room Air 05/09/24 07:19 Medical Decision Making MDM Narrative Medical decision making narrative: 48-year-old female present to the emergency department for evaluation for increased left flank pain over approximately 2 week. Patient is afebrile with no leukocytosis and a stable hemoglobin of 11.8. Patient has INR 0.9. No acute abnormalities on the patient's CMP with a normal creatinine function. No evidence of underlying urinary tract infection and patient's urine was negative for hematuria. No etiology for the patient's symptoms on the CT scan. Patient was treated with IV fluids for complaint of dizziness and lightheadedness. Patient was complaining of left flank pain so she was treated with IV pain medications and nausea medications. Differential Diagnosis Differential Diagnosis: Kidney stone, urinary tract infection, ureteral calculi, vaginally, hematuria Vital Signs Vital Signs: Vital Signs Temperature 96.8 F L 05/09/24 07:19 Pulse Rate 110 H 05/09/24 07:19 Respiratory Rate 16 05/09/24 07:19 Blood Pressure 155/66 H 05/09/24 07:19 Pulse Oximetry 100 05/09/24 07:19 Oxygen Delivery Room Air 05/09/24 07:19 Temperature 98.7 F 05/09/24 11:03 Pulse Rate 88 05/09/24 11:03 Respiratory Rate 16 05/09/24 11:03 Blood Pressure 117/83 05/09/24 11:03 Pulse Oximetry 96 05/09/24 11:03 Oxygen Delivery Room Air 05/09/24 07:19 Lab Data Lab results reviewed: Yes I reviewed the patient's lab results. 05/09/24 07:57 05/09/24 07:57 Labs: Lab Results 05/09/24 Range/Units 07:57 WBC 6.8 (4.5-10.0) K/mm3 RBC 4.72 (4.2-5.4) M/mm3 Hgb 11.8 L (12.0-15.0) g/dL Hct 38.1 (37.0-47.0) % MCV 80.7 (80-100) fl MCH 25.0 L (26-34) pg MCHC 31.0 L (32-36) g/dl RDW 15.4 H (11.5-14.5) % Plt Count 378 H (150-375) k/mm3 MPV 8.9 (7.4-10.4) fl Immature Gran % (Auto) 0.4 (0-0.5) % Neut % (Auto) 65.7 (45.5-73.1) % Lymph % (Auto) 25.2 (18.3-44.2) % [place] % (Auto) 6.2 (2.6-8.5) % Eos % (Auto) 1.6 (0-4.4) % Baso % (Auto) 0.9 (0.2-1.2) % Lymph # (Auto) 1.70 (0.9-3.2) K/mm3 [place] # (Auto) 0.4 (0.1-0.6) K/mm3 Eos # (Auto) 0.1 (0-0.3) K/mm3 Baso # (Auto) 0.1 (0.0-0.1) K/mm3 Abs Immat Gran (auto) 0.03 (0.00-0.031) K/mm3 Absolute Neuts (auto) 4.4 (1.3-6.7) K/mm3 Absolute Nucleated RBC 0.000 (0.0-0.012) K/mm3 Nucleated RBC % 0.0 (0.0-0.2) % PT 12.9 (11.1-14.7) Seconds INR 0.9 APTT 27.5 (22.3-36.8) Seconds Sodium 137 (137-145) mmol/L Potassium 4.1 (3.4-5.0) mmol/L Chloride 104 (98-107) mmol/L Carbon Dioxide 23 (22-30) mmol/L Anion Gap 10 (4-12) mmol/L BUN 15 (7-17) mg/dL Creatinine 0.94 (0.7-1.0) mg/dL Estim Creat Clear Calc 71 ml/min Estimated GFR > 60 (59 - ) Glucose 98 (65-110) mg/dL Calcium 9.1 (8.4-10.2) mg/dL Total Bilirubin 0.5 (0.2-1.3) mg/dL AST 41 H (14-36) U/L ALT 67 H (6-35) U/L Alkaline Phosphatase 92 (38-126) U/L Total Protein 7.0 (6.3-8.2) g/dL Albumin 4.3 (3.5-5.1) g/dL Urine Color Yellow (Yellow) Urine Appearance Clear (Clear) Urine pH 5.5 (5.0-9.0) Ur Specific Alpha 1.020 (1.001-1.035) Urine Protein Negative (Negative) mg/dL Urine Glucose (UA) Negative (Negative) mg/dL Urine Ketones Negative (Negative) mg/dL Ur Blood (Man) Negative (Negative) Urine Nitrate Negative (Negative) Urine Bilirubin Negative (Negative) Urine Urobilinogen 1.0 (<2.0) mg/dL Leukocyte Esterase Rfl Negative (Negative) KAREL/UL Imaging Data Radiologist's impression: Impressions Abdomen/Pelvis CT 05/09/24 09:00 IMPRESSION: 1. Bilateral nonobstructing kidney stones. 2. Small sliding hiatal hernia. Discharge Plan Discharge Clinical Impression: Flank pain, Acute viral syndrome Patient Disposition: Home, Self-Care Condition: Stable Instructions: Antibiotic Form, Viral Syndrome (ED), Flank Pain (ED) Additional Instructions: Drink plenty of fluids. Tylenol and ibuprofen for pain control. Have close follow-up with your primary care physician. If you have any worsening symptoms then please call or return to the emergency department. Patient Language: Sinhala Prescriptions: No Action propranolol 10 mg tablet 10 mg PO QAM bupropion HCl [Wellbutrin XL] 300 mg tablet extended release 24 hr 300 mg PO DAILY trazodone 100 mg tablet 100 mg PO HS potassium citrate 15 mEq tablet extended release 1,620 mg PO BID Wegovy 0.25 mg/0.5 mL pen injector 0.25 mg subcut WEEKLY Qty: 2 0RF Patient Comments: HAS NOT STARTED OF 04/29/2024 Rx Instructions: administer weeks 1 through 4 of therapy; call for next dose benzonatate 200 mg capsule 200 mg PO TID PRN (Reason: cough) Qty: 30 0RF sucralfate [Carafate] 100 mg/mL suspension 1 g PO ACHS Qty: 60 0RF metoclopramide HCl [Reglan] 10 mg tablet See Rx Instructions PO .COMPLEX Qty: 30 11RF Rx Instructions: Take 10 mg PO before dinner alprazolam 0.5 mg tablet 0.5 mg PO TID PRN (Reason: Anxiety) cyanocobalamin (vitamin B-12) 1,000 mcg Tablet 1,000 mcg PO DAILY cholecalciferol (vitamin D3) [Vitamin D3] 125 mcg (5,000 unit) Tablet 5,000 unit PO DAILY ibuprofen [Motrin IB] 200 mg capsule 600 mg PO Q8H PRN (Reason: pain) Qty: 30 0RF duloxetine 30 mg capsule,delayed release(DR/EC) 30 mg PO DAILY pantoprazole 40 mg tablet,delayed release (DR/EC) See Rx Instructions .ROUTE .COMPLEX Qty: 60 11RF Dose Instruction: TAKE 1 TABLET BY MOUTH TWICE DAILY Rx Instructions: TAKE 1 TABLET BY MOUTH TWICE DAILY sumatriptan succinate 6 mg/0.5 mL pen injector See Rx Instructions .ROUTE .COMPLEX Qty: 2 5RF Dose Instruction: INJECT 0.5 ML UNDER SKIN ONCE FOR HEADACH, MAY REPEAT DOSE ONCE IN 1 HOUR IF NOT RELIEVED Rx Instructions: INJECT 0.5 ML UNDER SKIN ONCE FOR HEADACH, MAY REPEAT DOSE ONCE IN 1 HOUR IF NOT RELIEVED ondansetron HCl 4 mg tablet 4 - 8 mg PO Q8H PRN (Reason: nausea and vomiting) Qty: 20 0RF dicyclomine 20 mg tablet 20 mg PO TID PRN (Reason: abdominal pain) Qty: 120 4RF sucralfate 1 gram tablet See Rx Instructions .ROUTE .COMPLEX Qty: 120 0RF Dose Instruction: TAKE 1 TABLET BY MOUTH BEFORE MEALS AND AT BEDTIME Rx Instructions: TAKE 1 TABLET BY MOUTH BEFORE MEALS AND AT BEDTIME hydrocodone-acetaminophen 5-325 mg tablet 1 tablet PO Q8H PRN (Reason: pain) Qty: 75 0RF lactulose 20 gram/30 mL solution 20 g PO BID Qty: 1200 0RF Follow-up/Referrals: Jose Zhang DO [Primary Care Provider] -
[2024-05-09] MEDS: SODIUM CHLORIDE 0.9% IV 1,000 ML 999 ML IV CONT (09:26)
[2024-05-09] MEDS: ONDANSETRON INJ 4 MG/2 ML VIAL IV PUSH (09:26)
[2024-05-09 09:27] VITALS: BP 133/81; PULSE 92; RESP 18; O2SAT 97
[2024-05-09] MEDS: HYDROmorphone HCL INJ (*CRX) 1 MG/ML SYR IV PUSH (09:27)
[2024-05-09 11:03] VITALS: BP 117/83; PULSE 88; RESP 16; TEMP 37.1; O2SAT 96
--- OUTSIDE RECORDS SUMMARY | 2024-05-14 08:26 | XMS_ITS | Patient Health Summary ---
Author Organization [facility] Address [address] [place] [address] Care Team Providers Care Seasonal Package Handler Name Role Phone Jonathan Hartman RN Unavailable [phone] Feliciano Dash MD Primary Care Provider [phone] Note from [facility],non-owned Affiliates and Associated Physician Practices is amultiple site organization consisting of ambulatory clinics and hospital sitesin [place], [place], [place] and [place]. This disclosure is being madepursuant to the Care Everywhere program and may not contain all information available regarding this patient. Last updated 18.[facility] Allergies * Ibuprofen(Other) -Medium Criticality Medications * [...] transdermal route every 24 hours. Obtains from [facility] in [place]. Reasons: Rhemuatoid arthiritis and Meredith-Danlos syndrome * Other CDB-THC (1:1 ratio) 10 mg capsule by mouth daily. Obtains from [facility] in [place]. Reasons: Rheumatoid arthritis and Meredith-Danlos syndrome * [...] 07/15/2015) Performed for Intractable abdominal pain * MPO/LA 3 AUTOANTIBODIES PANEL(Performed 07/15/2015) Performed for Diverticulitis [...] - 10.7 x10E9/L 02/01/2017 4:35 AM CDT [facility] WBC Corrected x10E9/L 02/01/2017 4:35 AM CDT [facility] RBC 3.88 3.80 - 5.20 x10E12/L 02/01/2017 4:35 AM CDT [facility] Hemoglobin 11.3(L) 12.0 - 15.6 gm/dL 02/01/2017 4:35 AM CDT [facility] Hematocrit 35.1(L) 35.9 - 45.5 % 02/01/2017 4:35 AM CDT [facility] MCV 90.5 80.7 - 98.3 fl 02/01/2017 4:35 AM CDT [facility] MCH 29.1 26.7 - 34.0 pg 02/01/2017 4:35 AM CDT [facility] MCHC 32.2 30.8 - 35.9 gm/dL 02/01/2017 4:35 AM CDT [facility] Platelet Count 313 153 - 416 x10E9/L 02/01/2017 4:35 AM CDT [facility] RDW-CV 13.4 12.1 - 14.9 % 02/01/2017 4:35 AM CDT [facility] MPV 8.7(L) 9.4 - 12.9 fl 02/01/2017 4:35 AM CDT [facility] Neutrophils % 55.7 44.0 - 73.0 % 02/01/2017 4:35 AM CDT [facility] Lymphocytes % 30.7 20.0 - 43.0 % 02/01/2017 4:35 AM CDT [facility] Monocytes % 6.0 5.0 - 13.0 % 02/01/2017 4:35 AM CDT [facility] Eosinophils % 3.5 0.0 - 6.0 % 02/01/2017 4:35 AM CDT [facility] Basophils % 1.0 0.0 - 2.0 % 02/01/2017 4:35 AM CDT [facility] Immature Granulocytes 3.1(H) 0 - 1 % 02/01/2017 4:35 AM CDT [facility] Neutrophil Absolute 3.99 2.01 - 7.14 x10E9/L 02/01/2017 4:35 AM CDT [facility] Lymphocytes Absolute 2.20 1.07 - 3.94 x10E9/L 02/01/2017 4:35 AM CDT [facility] Monocytes Absolute 0.43 0.26 - 1.07 x10E9/L 02/01/2017 4:35 AM CDT [facility] Eosinophils Absolute 0.25 0 - 0.47 x10E9/L 02/01/2017 4:35 AM CDT [facility] Basophils Absolute 0.07 0 - 0.08 x10E9/L 02/01/2017 4:35 AM CDT [facility] Immature Granulocytes Absolute 0.22(H) 0.00 - 0.06 x10E9/L 02/01/2017 4:35 AM CDT [facility] nRBC Auto 0 /100 WBC 02/01/2017 4:35 AM CDT [facility] Blood BLOOD SPECIMEN / Unknown Lab Venipuncture / Unknown 02/01/2017 3:29 AM CDT 02/01/2017 4:22 AM CDT Kristi Shah MD LAB - HEMATOLOGY ORD ERABLES [facility] [address] [place] [address] * (ABNORMAL) BASIC METABOLIC PANEL (CALCIUM TOTAL) (02/01/2017 3:29 AM CDT) Only the most recent of4 resultswithin the time period is included. [facility] Signature Glucose 81 74 - 106 mg/dL 02/01/2017 4:48 AM CDT [facility] Sodium 139 136 - 145 mmol/L 02/01/2017 4:48 AM CDT [facility] Potassium 3.5 3.5 - 5.1 mmol/L 02/01/2017 4:48 AM CDT [facility] Chloride 112(H) 98 - 107 mmol/L 02/01/2017 4:48 AM CDT [facility] CO2 19(L) 22 - 31 mmol/L 02/01/2017 4:48 AM CDT [facility] Calcium 8.3(L) 8.5 - 10.1 mg/dL 02/01/2017 4:48 AM CDT [facility] Anion Gap 8 8 - 16 mmol/L 02/01/2017 4:48 AM CDT [facility] BUN 8 7 - 21 mg/dL 02/01/2017 4:48 AM CDT [facility] Creatinine 0.76 0.50 - 1.30 mg/dL 02/01/2017 4:48 AM CDT [facility] eGFR by MDRD >60 >60 mL/min/1.7 3m2 02/01/2017 4:48 AM CDT [facility] eGFR by MDRD >60 >60 mL/min/1.7 3m2 02/01/2017 4:48 AM CDT [facility] Blood BLOOD SPECIMEN / Unknown Lab Venipuncture / Unknown 02/01/2017 3:29 AM CDT 02/01/2017 4:22 AM CDT Kristi Shah MD LAB - CHEMISTRY MORGAN YEE [facility] [address] [place] [address] * MYCOPLASMA PNEUMO ANTIBODY IGG/IGM PANEL (01/30/2017 2:42 AM CDT) Mycoplasma pneumoniae Antibody IgG <100 0 - 99 U/mL 01/31/2017 4:21 PM CDT [facility] ([facility]) Comment: ? Negative: ? <100 ? [...] 769 U/mL 01/31/2017 4:21 PM CDT [facility] ([facility]) Comment: ? Negative ?<770 Clinically significant [...] 2:42 AM CDT 01/30/2017 3:08 AM CDT [facility] ([facility]) - 01/31/2017 4:21 PM CDT Performed at: ??01 - [address] ??[id number] Event Sales Manager: Mahendra Trevino PhD, Phone: ??[phone] Akira Romero MD LAB - SEROLOGY ORDER BOB [facility] ([facility]) [address] [place] [address] * (ABNORMAL) CHLAMYDIA ANTIBODY IGG/IGM PANEL (01/30/2017 2:42 AM CDT) Chlamydia psittaci Antibody IgM <1:10 Neg:<1:10 02/01/2017 5:10 PM CDT [facility] ([facility]) Comment: This test was developed and its performance characteristics determined by [facility]. ??It has not been cleared or approved by the Food and Drug Administration. ??The FDA has determined that such clearance or approval is not necessary. Chlamydia psittaci Antibody IgG <1:16 Neg:<1:16 02/01/2017 5:10 PM CDT [facility] ([facility]) Comment: This test was developed and its performance characteristics determined by [facility]. ??It has not been cleared or approved by the Food and Drug Administration. ??The FDA has determined that such clearance or approval is not necessary. Chlamydia pneumoniae Antibody IgM <1:16 Neg:<1:16 02/01/2017 5:10 PM CDT [facility] ([facility]) Test Information Comment 02/02/20 17 5:10 PM CDT [facility] ([facility]) Comment: This test was developed and [...] <1:10 Neg:<1:10 02/01/2017 5:10 PM CDT [facility] ([facility]) Chlamydia trachomatis Antibody IgM <0.8 0.0 - 0.7 index 02/01/2017 5:10 PM CDT [facility] ([facility]) Comment: ?Negative ? <0.8 ?Borderline ?0.8 - 1.0 ?Positive ? >1.0 Results for this test are for research purposes only by the assay's diesel locomotive firer. ??The performance characteristics of this product have not been established. ??Results should not be used as a diagnostic procedure without confirmation of the diagnosis by another medically established diagnostic product or procedure. Chlamydia Antibody IgG 1.18(H) 0.00 - 0.90 ratio 02/01/2017 5:10 PM CDT [facility] ([facility]) Comment: ?Negative ? <0.91 ?Equivocal ??0.91 - 1.09 ?Positive ? >1.09 Blood BLOOD SPECIMEN / Unknown Lab Venipuncture / Unknown 01/30/2017 2:42 AM CDT 01/30/2017 3:08 AM CDT Narrative [facility] ([facility]) - 02/01/2017 5:10 PM CDT Performed at: ??01 - [facility] ??[id number] Event Sales Manager: Curtis Sanchez MD, Phone: ??[phone] Akira Romero MD LAB - CHEMISTRY ORDE RABLES Performing Organization Address [facility] de Phone Number [facility] ([facility]) [address] [place] [address] * HISTOPLASMA GALACTOMANNAN AG URINE (01/29/2017 10:37 PM CDT) Histoplasma galactomannan Antigen Urine <0.5 <0.5 ng/mL 02/01/2017 3:19 PM CDT [facility] ([facility]) Disclaimer Comment 02/01/2017 3:19 PM CDT [facility] ([facility]) Comment: This test was developed and its performance characteristics determined by [facility]. It has not been cleared or approved by the Food and Drug Administration. Urine URINE / Unknown Collection / Unknown 01/29/2017 10:37 PM CDT 01/29/2017 10:43 PM CDT Narrative [facility] ([facility]) - 02/01/2017 3:19 PM CDT Performed at: ??01 - [facility] ??[id number] Event Sales Manager: Curtis Sanchez MD, Phone: ??[phone] Akira Romero MD LAB - URINE CHEMISTR Y ORDERABLES Performing Organization Address [facility] Co de Phone Number [facility] ([facility]) [address] [place] [address] * RESPIRATORY PATHOGEN PANEL BY PCR (01/29/2017 10:36 PM CDT) Adenovirus PCR Not detected Not detected, Invalid, Indeterminate 01/30/2017 5:53 AM CDT [facility] Human Metapneumovirus PCR Not detected Not detected, Invalid, Indeterminate 01/30/2017 5:53 AM CDT [facility] Human Rhinovirus/Entero virus PCR Not detected Not detected, Invalid, Indeterminate 01/30/2017 5:53 AM CDT [facility] Influenza A Non Subtyped PCR Not detected Not detected, Invalid, Indeterminate 01/30/2017 5:53 AM CDT [facility] Influenza A H1 PCR Not detected Not detected, Invalid, Indeterminate 01/30/2017 5:53 AM CDT [facility] Influenza A H3 PCR Not detected Not detected, Invalid, Indeterminate 01/30/2017 5:53 AM CDT [facility] Influenza A H1 2009 PCR Not detected Not detected, Invalid, Indeterminate 01/30/2017 5:53 AM CDT [facility] Influenza B PCR Not detected Not detected, Invalid, Indeterminate 01/30/2017 5:53 AM CDT [facility] Mycoplasma pneumoniae PCR Not detected Not detected, Invalid, Indeterminate 01/30/2017 5:53 AM CDT [facility] Parainfluenza Virus 1 PCR Not detected Not detected, Invalid, Indeterminate 01/30/2017 5:53 AM CDT [facility] Parainfluenza Virus 2 PCR Not detected Not detected, Invalid, Indeterminate 01/30/2017 5:53 AM CDT [facility] Parainfluenza Virus 3 PCR Not detected Not detected, Invalid, Indeterminate 01/30/2017 5:53 AM CDT [facility] Parainfluenza Virus 4 PCR Not detected Not detected, Invalid, Indeterminate 01/30/2017 5:53 AM CDT [facility] Respiratory Syncytial Virus PCR Not detected Not detected, Invalid, Indeterminate 01/30/2017 5:53 AM CDT [facility] Bordetella pertussis PCR Not detected Not detected, Invalid 01/30/2017 5:53 AM CDT [facility] Coronavirus PCR Not detected Not detected, Invalid, Indeterminate 01/30/2017 5:53 AM CDT [facility] Microbiology NASOPHARYNGEAL SWAB / Unknown Collection / Unknown 01/29/2017 10:36 PM CDT 01/29/2017 10:42 PM CDT Narrative [facility] - 01/30/2017 5:53 AM CDT Coronavirus PCR detects the following coronaviruses: 229E, HKU1, NL63, OC43. Akira Romero MD LAB - MICROBIOLOGY O ASHLEIGH Performing Organization Address [facility] Co de Phone Number [facility] [address] [place] [address], [facility] [phone] * CULTURE BLOOD (01/29/2017 6:59 PM CDT) Only the most recent of2 resultswithin the time period is included. Culture No growth day 5 CARLOS EDUARDO 02/04/2017 12:00 AM CDT [facility] Blood PERIPHERAL BLOOD / Unknown Venipuncture / Unknown 01/29/2017 6:59 PM CDT 01/29/2017 7:03 PM CDT Clinton Dorman DO LAB - MICROBIOLOGY O ASHLEIGH Performing Organization Address [facility] de Phone Number [facility] [address] [place] [address], [facility] [phone] * CT CHEST PE (01/29/2017 5:23 PM [...] resultswithin the time period is included. Pathologist [facility] HCG Qual Urine Negative Negative [facility] POCT TESTING QC Verified Yes Yes [facility] POC T TESTING Urine URINE / Unknown 01/29/2017 4 :45 PM CDT Clinton Dorman DO LAB - POINT OF CARE ORDERABLES [facility] POCT TESTING [address] [place] [address] * (ABNORMAL) D-DIMER (01/29/2017 3:57 PM CDT) Pathologist [facility] D-Dimer 0.71(H) 0.17 - 0.5 mg/L FEU 01/29/2017 4:14 PM CDT [facility] Blood BLOOD SPECIMEN / Unknown Venipuncture / Unknown 01/29/2017 3:57 PM CDT 01/29/2017 3:59 PM CDT Narrative [facility] - 01/29/2017 4:14 PM CDT [...] - COAGULATION OR DERABLES Performing Organization Address City/State/[facility] Co de Phone Number [facility] [address] [place] [address] * INFLUENZA A+B ANTIGEN RAPID (01/29/2017 1:38 PM CDT) [facility] Influenza A Antigen Negative Negative 01/29/2017 1:55 PM CDT [facility] Influenza B Antigen Negative Negative 01/29/2017 1:55 PM CDT [facility] Microbiology NASOPHARYNGEAL SWAB / Unknown Collection / Unknown 01/29/2017 1:38 PM CDT 01/29/2017 1:43 PM CDT Narrative [facility] - 01/29/2017 1:55 PM CDT [...] - MICROBIOLOGY O RDERABLES Performing Organization Address [facility] Co de Phone Number [facility] [address] [place] [address] * EKG 12-LEAD (01/29/2017 12:20 PM CDT) Only the most recent of2 resultswithin the time period is included. [facility] Ventricular Rate 100 BPM [facility] MUSE Atrial Rate 100 BPM [facility] MUSE P-R Interval 84 ms [facility] MUSE QRS Duration ms 102 ms [facility] MUSE Q-T Interval ms 366 ms [facility] MUSE QTC Calculation (Bezet) 472 ms [facility] MUSE Calculated P Madison 26 degrees [facility] MUSE Calculated R [place] 48 degrees [facility] MUSE Calculated T Madison 33 degrees [facility] MUSE Interpretation EKG SINUS RHYTHM WITH SHORT LA NONSPECIFIC ST ABNORMALITY ABNORMAL ECG Confirmed by MD Lisandra, Toi ([id number]) on 01/30/2017 7:55:22 AM [facility] MUSE 01/29/2017 12:2 0 PM CDT 01/30/2017 7:55 AM CDT Clinton Dorman DO ECG ORDERABLES Performing Organization Address [facility] de Phone Number [facility] MUSE * (ABNORMAL) COMPREHENSIVE METABOLIC PANEL (01/29/2017 12:14 PM CDT) Only the most recent of6 resultswithin the time period is included. [facility] Glucose 97 74 - 106 mg/dL 01/29/2017 12:44 PM CDT [facility] Sodium 137 136 - 145 mmol/L 01/29/2017 12:44 PM CDT [facility] Potassium 3.6 3.5 - 5.1 mmol/L 01/29/2017 12:44 PM CDT [facility] Chloride 108(H) 98 - 107 mmol/L 01/29/2017 12:44 PM CDT [facility] CO2 18(L) 22 - 31 mmol/L 01/29/2017 12:44 PM CDT [facility] Calcium 8.7 8.5 - 10.1 mg/dL 01/29/2017 12:44 PM CDT [facility] Anion Gap 11 8 - 16 mmol/L 01/29/2017 12:44 PM CDT [facility] BUN 13 7 - 21 mg/dL 01/29/2017 12:44 PM CDT [facility] Creatinine 0.93 0.50 - 1.30 mg/dL 01/29/2017 12:44 PM CDT [facility] Alkaline Phosphatase 70 38 - 126 U/L 01/29/2017 12:44 PM CDT [facility] ALT 21 13 - 61 U/L 01/29/2017 12:44 PM CDT [facility] AST 17 5 - 40 U/L 01/29/2017 12:44 PM CDT [facility] Protein Total 7.6 6.4 - 8.2 gm/dL 01/29/2017 12:44 PM CDT [facility] Albumin 3.3(L) 3.4 - 5.0 gm/dL 01/29/2017 12:44 PM CDT [facility] Bilirubin Total 0.5 0.2 - 1.0 mg/dL 01/29/2017 12:44 PM CDT [facility] eGFR by MDRD >60 >60 mL/min/1.7 3m2 01/29/2017 12:44 PM CDT [facility] eGFR by MDRD >60 >60 mL/min/1.7 3m2 01/29/2017 12:44 PM CDT [facility] Blood BLOOD SPECIMEN / Unknown Venipuncture / Unknown 01/29/2017 12:14 PM CDT 01/29/2017 12:27 PM CDT Clinton Dorman DO LAB - CHEMISTRY MORGAN YEE [facility] Organization Address City/State/ZIP Co de Phone Number [facility] [address] [place] [address] * LACTIC ACID BLOOD (01/29/2017 12:14 PM CDT) Only the most recent of2 resultswithin the time period is included. Lactic Acid 1.7 0.7 - 2.1 mmol/L 01/29/2017 12:44 PM CDT [facility] Blood BLOOD SPECIMEN / Unknown Venipuncture / Unknown 01/29/2017 12:14 PM CDT 01/29/2017 12:27 PM CDT Clinton Dorman DO LAB - CHEMISTRY MORGAN YEE [facility] [address] [place] [address] * CT RENAL STONE PROTOCOL (NO IV AND NO ORAL CONTRAST) (05/17/2016 1:00 PM UNIX SYSTEMS ADMINISTRATOR) Anatomical Region Laterality Modality Abdomen, Pelvis Computed Tomogra phy 05/17/2016 1:14 PM UNIX SYSTEMS ADMINISTRATOR Impressions 05/17/2016 1:19 PM UNIX SYSTEMS ADMINISTRATOR 1. Multiple bilateral renal calculi seen within the kidneys without evidence of hydronephrosis or hydroureter. The largest calculus on the right measures approximately 4 mm and the largest on the left approximately 5 mm. Narrative 05/17/2016 1:19 [address] [employer] ADMINISTRATOR [address] abdomen and pelvis without contrast Technique: [...] ROUTINE W/REFLEX TO CULTURE (05/17/2016 12:49 PM UNIX SYSTEMS ADMINISTRATOR) Only the most recent of5 resultswithin the time period is included. Color UA Yellow Straw, Yellow, Dark Yellow 05/17/2016 1:08 PM UNIX SYSTEMS ADMINISTRATOR [facility] Clarity UA Clear 05/17/2016 1:08 PM UNIX SYSTEMS ADMINISTRATOR [facility] Specific [place] UA 1.020 1.005 - 1.030 05/17/2016 1:08 PM UNIX SYSTEMS ADMINISTRATOR [facility] pH UA 6.5 5.0 - 8.0 pH 05/17/2016 1:08 PM [facility] Protein UA Negative Negative 05/17/2016 1:08 PM UNIX SYSTEMS ADMINISTRATOR [facility] Blood UA Negative Negative 05/17/2016 1:08 PM [facility] Leukocyte UA 2+(A) Negative 05/17/2016 1:08 PM [facility] Nitrite UA Negative Negative 05/17/2016 1:08 PM UNIX SYSTEMS ADMINISTRATOR [facility] Glucose UA Negative Negative 05/17/2016 1:08 PM [facility] Ketone UA Negative Negative 05/17/2016 1:08 PM [facility] Bilirubin UA Negative Negative 05/17/2016 1:08 PM [facility] Urobilinogen UA 0.2 0.1 - 1.0 EU/dL 05/17/2016 1:08 PM [facility] WBC UA Auto 5-10(A) 0-2, 2-5 # /hpf 05/17/2016 1:08 PM [facility] RBC UA Auto 2-5 0-2, 2-5 # /hpf 05/17/2016 1:08 PM [facility] Epithelial Cell UA Auto 5-10(A) 0-2, 2-5 # /hpf 05/17/2016 1:08 PM [facility] Bacteria UA Auto 1+(A) None seen 05/17/19 17 1:08 PM [facility] Reflex Status Culture to follow 05/17/2016 1:08 PM [facility] Urine URINE SPECIMEN OBTAINED BY CLEAN CATCH PROCEDURE / Unknown Collection / Unknown 05/17/2016 12:49 PM UNIX SYSTEMS ADMINISTRATOR 05/17/2016 12:56 PM UNIX SYSTEMS ADMINISTRATOR Eleno Mcclure DO LAB - URINALYSIS ORD ERABLES [facility] [address] [place] [address] * CULTURE URINE (05/17/2016 12:49 PM UNIX SYSTEMS ADMINISTRATOR) Only the most recent of5 resultswithin the time period is included. Culture 10,000-50,000 CFU/mL urogenital adelso CARLOS EDUARDO 05/18/2016 3:24 PM UNIX SYSTEMS ADMINISTRATOR [facility] Urine URINE SPECIMEN OBTAINED BY CLEAN CATCH PROCEDURE / Unknown Collection / Unknown 05/17/2016 12:49 PM UNIX SYSTEMS ADMINISTRATOR 05/17/2016 12:56 PM UNIX SYSTEMS ADMINISTRATOR Eleno Mcclure DO LAB - MICROBIOLOGY O ASHLEIGH Performing Organization Address City/[facility]/ZIP Co de Phone Number [facility] [address] [place] [phone] * HELICOBACTER PYLORI UREASE (STL) (04/06/2016 9:51 AM UNIX SYSTEMS ADMINISTRATOR) Helicobacter pylori Urease Initial Negative Negative 04/07/2016 11:49 AM UNIX SYSTEMS ADMINISTRATOR [facility] Helicobacter pylori Urease Final Negative Negative 04/07/2016 11:49 AM UNIX SYSTEMS ADMINISTRATOR [facility] Microbiology GASTRIC CONTENTS SPECIMEN / Unknown 04/06/2016 9:51 AM UNIX SYSTEMS ADMINISTRATOR 04/06/2016 12:31 PM UNIX SYSTEMS ADMINISTRATOR Armando Corona MD LAB - MICROBIOLOGY aRfa SOTELO Performing Organization Address [facility] Co de Phone Number [facility] [address] [place] [address] * EGD (04/06/2016 9:19 AM UNIX SYSTEMS ADMINISTRATOR) Report Endoscopy POC __ _ Patient Name: [...] Procedure Code(s): ? --- Professional --- ? 23818, Esophagogastroduode noscopy, flexible, transoral; with biopsy, ? single or multiple ? --- Technical --- ? 57659, Esophagogastroduode noscopy, flexible, transoral; with biopsy, ? single or multiple Diagnosis Code(s): ? --- Professional --- ? K20.9, Esophagitis, unspecified ? K29.70, Gastritis, unspecified, without bleeding ? R10.9, Unspecified abdominal pain ? --- Technical --- ? K20.9, Esophagitis, unspecified ? K29.70, Gastritis, unspecified, without bleeding ? R10.9, Unspecified abdominal pain CPT copyright 2015 [employer]. All rights reserved. The codes documented in this report are preliminary and upon invoice coder review may be revised to meet current compliance requirements. Armando Corona, 04/06/2016 9:52:47 AM This report has been signed electronically. Number of Addenda: 0 Note Initiated On: 04/06/2016 9:19 AM [facility] ENDOSCOPY 04/06/2016 9:19 AM UNIX SYSTEMS ADMINISTRATOR Narrative Procedure Note Armando Corona MD - 04/06/2016 9:53 AM CST EGD Grade A esophagitis Mild gastritis s/p bx Nl duodenum Armando Corona MD GI PROCEDURE ORDERAB LES [facility] ENDOSCOPY * ENDOSCOPY, COLON, DIAGNOSTIC (12/15/2015 12:53 PM CDT) Armando Corona MD GI PROCEDURE ORDERAB LES * GROSS + MICRO EXAM (STL) (12/15/2015 12:34 PM CDT) Only the most recent of4 resultswithin the time period is included. Case Report Surgical Pathology Report ? Case: [id number] ? Authorizing Provider: ??Armando Corona MD ?Collected: ? 12/15/2015 12:34 PM ? Ordering Location: ? [facility] ?Received: ?12/16/2015 09:42 AM ? Pathologist: ? Doris Morrison MD ? Specimen: ?Colon Biopsy, random colon biopsy ? 12/17/2015 10:19 AM [facility] Final Diagnosis 1. ??Large intestine, random colon, endoscopic biopsy: -- ??No histopathologic abnormality OBEY/tao 12/17/2015 10:19 AM [facility] Gross Description Received in formalin in a container labeled Madalyn Walton, random colon biopsy. ??The container holds multiple pink-baird tissue fragments measuring from 0.2 cm up to 0.4 cm. The specimen is entirely submitted in a cassette labeled A1. LIYA/eloy 12/17/2015 10:19 AM [facility] Microscopic Description Histologic sections show fragments of large intestinal mucosa without specific histopathologic abnormality. ??There is no evidence of lymphocytic or collagenous colitis. ??There is no evidence of dysplasia or malignancy. ?? OBEY/tao 12/17/2015 10:19 AM CDT [facility] Pathology/Cytolo gy COLONIC BIOPSY SPECIMEN / Unknown 12/15/2015 12:34 PM CDT 12/16/2015 9:42 AM CDT Armando Corona MD LAB - PATHOLOGY/CYTO LOGY ORDERABLES [facility] [address] [place], [place] [id number] * ENDOSCOPY, COLON, SCREENING (12/15/2015 12:23 PM CDT) Report Endoscopy POC _ Patient Name: Madalyn Walton ? Procedure Date: 12/15/2015 12:23 PM ? Date of : 1975 ?Admit Type: Outpatient Age: 40 ? Gender: Female Attending MD: Armando Corona , ? _ Procedure: ? Colonoscopy Indications: ? Lower abdominal pain Providers: ? Armando Corona (Doctor), Enma Wong, ? Optical Manager Patient Profile: ?? 40F pmh 40F pmh [...] Procedure Code(s): ? --- Professional --- ? 27255, Colonoscopy, flexible; with biopsy, single or multiple ? --- Technical --- ? 72955, Colonoscopy, flexible; with biopsy, single or multiple Diagnosis Code(s): ? --- Professional --- ? R10.30, Lower abdominal pain, unspecified ? --- Technical --- ? R10.30, Lower abdominal pain, unspecified CPT copyright 2015 [employer]. All rights reserved. The codes documented in this report are preliminary and upon invoice coder review may be revised to meet current compliance requirements. Armando Corona, 12/15/2015 12:47:51 PM This report has been signed electronically. Number of Addenda: 0 Note Initiated On: 12/15/2015 12:23 PM [facility] 12/15/2015 12:2 3 PM CDT Narrative Transcriptions Armando Corona MD - 12/15/2015 12:53 PM CDT Neg colon s/p random bx Armando Corona MD GI PROCEDURE ORDERAB LES Performing Organization Address City/[facility]/ZIP Co de Phone Number [facility] * (ABNORMAL) LIPASE BLOOD (08/27/2015 6:11 PM CDT) Only the most recent of3 resultswithin the time period is included. Lipase 264(H) 10 - 220 U/L 08/27/2015 7:11 PM CDT [facility] Blood BLOOD SPECIMEN / Unknown Venipuncture / Unknown 08/27/2015 6:11 PM CDT 08/27/2015 6:14 PM CDT Colton Caballero MD LAB - CHEMISTRY ORDERABLES Performing Organization Address City/[facility]/ZIP Co de Phone Number [facility] [address] [place] [address] * (ABNORMAL) URINALYSIS MICROSCOPIC ONLY W/REFLEX CULTURE (08/12/2015 9:16 PM CDT) Only the most recent of2 resultswithin the time period is included. RBC UA 0-2 0-2, 2-5 # /hpf 08/12/2015 9:29 PM CDT [facility] WBC UA 2-5 0-2, 2-5 # /hpf 08/12/2015 9:29 PM CDT [facility] Bacteria UA 2+(A) None Seen 08/12/2015 9:29 PM CDT [facility] Epithelial Cell UA 10-20(A) 0-2, 2-5 # /hpf 08/12/2015 9:29 PM CDT [facility] Calcium Oxalate Crystals 1+(A) None Seen 08/12/2015 9:29 PM CDT [facility] Urine URINE SPECIMEN OBTAINED BY CLEAN CATCH PROCEDURE / Unknown 08/12/2015 9:16 PM CDT 08/12/2015 9:19 PM CDT Narrative [facility] - 08/12/2015 9:29 PM CDT *Microscopic performed on un-spun urine; <3mL urine submitted Eleno Mcclure DO LAB - URINALYSIS ORD ERABLES Performing Organization Address [facility] Co de Phone Number [facility] [address] [place] [id number] * PT-INR (08/12/2015 7:29 PM CDT) PT 9.9 9.5 - 11.6 sec 08/12/2015 7:58 PM CDT [facility] INR 1.0 0.9 - 1.1 08/12/2015 7:58 PM CDT [facility] Blood BLOOD SPECIMEN / Unknown Venipuncture / Unknown 08/12/2015 7:29 PM CDT 08/12/2015 7:44 PM CDT Narrative [facility] - 08/12/2015 7:58 PM CDT Conventional Warfarin Anticoagulant Therapy: INR Reference Range: ??2.0-3.0 Intensive Warfarin Anticoagulant Therapy: INR Reference Range: ? 2.5-3.5 Eleno Mcclure DO LAB - COAGULATION OR DERABLES Performing Organization Address [facility] Co de Phone Number [facility] [address] [place] [address] * HEMOGLOBIN (08/04/2015 11:16 AM CDT) Pathologist [facility] Hemoglobin 12.6 12.0 - 15.6 gm/dL 08/04/2015 11:28 AM CDT [facility] Blood BLOOD SPECIMEN / Unknown Lab Venipuncture / Unknown 08/04/2015 11:16 AM CDT 08/04/2015 11:22 AM CDT Armando Corona MD LAB - HEMATOLOGY ORD ERABLES [facility] [address] [place], [place] [id number] * ENDOSCOPY, COLON, DIAGNOSTIC (08/04/2015 9:04 AM CDT) [facility] Report Endoscopy POC _ Patient Name: Madalyn [...] Procedure Code(s): ? --- Professional --- ? 09571, Colonoscopy, flexible; with removal of tumor(s), polyp(s), or ? other lesion(s) by snare technique ? --- Technical --- ? 80532, Colonoscopy, flexible; with removal of tumor(s), polyp(s), [...] abscess ? without bleeding CPT copyright 2015 [employer]. All rights reserved. The codes documented in this report are preliminary and upon invoice coder review may be revised to meet current compliance requirements. Armando Corona, 08/04/2015 9:38:09 AM This report has been signed electronically. Number of Addenda: 0 Note Initiated On: 08/04/2015 9:04 AM [facility] 08/04/2015 9:04 AM CDT Narrative Transcriptions Armando Corona MD - 08/04/2015 9:39 AM CDT Colonoscopy * fair prep *few diverticuli * no old or fresh blood * normal terminal ileum rec PRN hyoscyamine Capsule endoscopy today Armando Corona MD GI PROCEDURE ORDERAB LES [facility] * EGD (08/03/2015 7:24 AM [...] (Doctor), Roxi Bennett, ANTHONY, Sona Dove, ? Optical Manager Patient Profile: ?? 40F pmh depression, arthritis, [...] Procedure Code(s): ? --- Professional --- ? 79378, Esophagogastroduod enoscopy, flexible, transoral; with biopsy, ? single or multiple ? --- Technical --- ? 00434, Esophagogastroduod enoscopy, flexible, transoral; with biopsy, ? single or multiple Diagnosis Code(s): ? --- Professional --- ? K29.70, Gastritis, unspecified, without bleeding ? R10.13, Epigastric pain ? R10.33, Periumbilical pain ? K92.1, Melena (includes Hematochezia) ? --- Technical --- ? K29.70, Gastritis, unspecified, without bleeding ? R10.13, Epigastric pain ? R10.33, Periumbilical pain ? K92.1, Melena (includes Hematochezia) CPT copyright 2015 [employer]. All rights reserved. The codes documented in this report are preliminary and upon invoice coder review may be revised to meet current compliance requirements. Armando Corona, 08/03/2015 8:00:13 AM This report has been signed electronically. Number of Addenda: 0 Note Initiated On: 08/03/2015 7:24 AM [facility] 08/03/2015 7:24 AM CDT Narrative Transcriptions Armando Corona MD - 08/03/2015 8:00 AM CDT EGD - mild gastritis bx'd, other normal to proximal jejunum Rec Colonoscopy tomorrow Follow cbcs Armando Corona MD GI PROCEDURE ORDERAB LES Performing Organization Address City/[facility] Co de Phone Number [facility] * CULTURE STOOL+ E COLI SHIGA-LIKE TOXIN (08/02/2015 4:51 PM CDT) Only the most recent of2 resultswithin the time period is included. Culture No growth Salmonella, Shigella, Campylobacter , E. coli 0157:h7 or Yersinia CARLOS EDUARDO 08/04/2015 6:27 AM CDT [facility] Culture Negative E. coli Shiga-like toxin (NM) CARLOS EDUARDO 08/04/2015 6:27 AM CDT [facility] Stool STOOL SPECIMEN / Unknown Collection / Unknown 08/02/2015 4:51 PM CDT 08/02/2015 4:56 PM CDT Chucho Hinton MD LAB - MICROBIOLOGY O RDERABLES Performing Organization Address City/[facility]/ZIP Co de Phone Number [facility] [address] [place] [address], [facility] [phone] * HGB HCT PANEL (08/02/2015 10:02 AM CDT) Hemoglobin 12.3 12.0 - 15.6 gm/dL 08/02/2015 10:37 AM CDT [facility] Hematocrit 37.6 35.9 - 45.5 % 08/02/2015 10:37 AM CDT [facility] Blood BLOOD SPECIMEN / Unknown Lab Venipuncture / Unknown 08/02/2015 10:02 AM CDT 08/02/2015 10:13 AM CDT Akira Romero MD LAB - HEMATOLOGY ORD PRIMITIVO Performing Organization Address [facility]/ZIP Co de Phone Number [facility] [address] [place] [address] * ALCOHOL ETHYL BLOOD (08/02/2015 10:02 AM CDT) Ethanol <10 <10 mg/dL 08/02/2015 10:49 AM CDT [facility] Ethanol Calculated <0.100 gm/dL 08/02/2015 10:49 AM CDT [facility] Blood BLOOD SPECIMEN / Unknown Lab Venipuncture / Unknown 08/02/2015 10:02 AM CDT 08/02/2015 10:13 AM CDT Narrative [facility] - 08/02/2015 10:49 AM CDT Non Legal Serum Alcohol Chucho Hinton MD LAB - CHEMISTRY MORGAN YEE Performing Organization Address [facility] Co de Phone Number [facility] [address] [place] [address] * (ABNORMAL) LIPID PROFILE (08/02/2015 10:02 AM CDT) Cholesterol 184 <200 mg/dL 08/02/2015 10:49 AM CDT [facility] Triglycerides 156(H) <150 mg/dL 08/02/2015 10:49 AM CDT [facility] HDL Cholesterol 43 >40 mg/dL 08/02/2015 10:49 AM CDT [facility] LDL Calculated 110 <130 mg/dL 08/02/2015 10:49 AM CDT [facility] VLDL Calculated 31(H) <=30 mg/dL 08/02/2015 10:49 AM CDT [facility] Chol HDL Ratio 4.3 <4.5 08/02/2015 10:49 AM CDT [facility] LDL/HDL Ratio 2.6 <5.0 08/02/2015 10:49 AM CDT [facility] Blood BLOOD SPECIMEN / Unknown Lab Venipuncture / Unknown 08/02/2015 10:02 AM CDT 08/02/2015 10:13 AM CDT Chucho Hinton MD LAB - CHEMISTRY MORGAN YEE [facility] Organization Address City/State/ZIP Co de Phone Number [facility] [address] [place] [address] * CT ABDOMEN AND PELVIS WITH IV [...] CDT) ABO A 08/01/2015 8:23 PM CDT [facility] Rh Type Positive 08/01/2015 8:23 PM CDT [facility] Comment:History check perfor med. Retype required. Antibody Screen Negative 08/01/2015 8:23 PM CDT [facility] Miscellaneous samples (specimen) BLOOD SPECIMEN / Unknown Venipuncture / Unknown 08/01/2015 7:19 PM CDT 08/01/2015 7:22 PM CDT Hari Niño MD LAB - BLOOD BANK ORD ERABLES [facility] [address] * LAB RESULTS ORDER (07/19/2015 5:06 [...] (Doctor), Felipe Gasca RN, Daren ? Jose, Optical Manager Patient Profile: ?? 40F pmh depression, [...] Procedure Code(s): ? --- Professional --- ? 34471, Esophagogastroduod enoscopy, flexible, transoral; with biopsy, ? single or multiple ? --- Technical --- ? 65986, Esophagogastroduod enoscopy, flexible, transoral; with biopsy, ? single or multiple Diagnosis Code(s): ? --- Professional --- ? K25.9, Gastric ulcer, unspecified as acute or chronic, without ? hemorrhage or perforation ? R10.13, Epigastric pain ? --- Technical --- ? K25.9, Gastric ulcer, unspecified as acute or chronic, without ? hemorrhage or perforation ? R10.13, Epigastric pain CPT copyright 2015 [employer]. All rights reserved. The codes documented in this report are preliminary and upon invoice coder review may be revised to meet current compliance requirements. Armando Corona, 07/15/2015 2:36:07 PM This report has been signed electronically. Number of Addenda: 0 Note Initiated On: 07/15/2015 2:08 PM [facility] 07/15/2015 2:08 PM CDT Narrative [...] GI PROCEDURE ORDERAB LES Performing Organization Address [facility]/ZIP Co de Phone Number [facility] * MPO/LA 3 AUTOANTIBODIES PANEL (07/15/2015 5:51 AM CDT) Anti-myeloperox idase (MPO) Antibody <9.0 0.0 - 9.0 U/mL 07/18/2015 1:17 PM CDT [facility] ([facility]) Anti-proteinase 3 (LA-3) Abs <3.5 0.0 - 3.5 U/mL 07/18/2015 1:17 PM CDT [facility] ([facility]) Blood specimen (specimen) BLOOD SPECIMEN / Unknown Lab Venipuncture / Unknown 07/15/2015 5:51 AM CDT 07/15/2015 6:11 AM CDT Narrative [facility] ([facility]) - 07/18/2015 1:17 PM CDT Performed at: ??01 - [facility] [address] ??[id number] Event Sales Manager: Curtis Sanchez MD, Phone: ??[phone] Chucho Hinton MD LAB - CHEMISTRY MORGAN YEE Performing Organization Address City/[facility]/ZIP Co de Phone Number [facility] ([facility]) * (ABNORMAL) C-REACTIVE PROTEIN (07/15/2015 5:50 AM CDT) Pathologist [facility] C-Reactive Protein 0.30(H) <0.30 mg/dL 07/15/2015 6:48 AM CDT [facility] Blood BLOOD SPECIMEN / Unknown Lab Venipuncture / Unknown 07/15/2015 5:50 AM CDT 07/15/2015 6:11 AM CDT Chucho Hinton MD LAB - CHEMISTRY ORDE RABLES Performing Organization Address [facility] Co de Phone Number [facility] [address] [place], [place] [phone] * SED RATE WESTERGREN (07/15/2015 5:50 AM CDT) [facility] Erythrocyte Sedimentation Rate Westergren 7 0 - 20 mm/hr 07/15/2015 6:36 AM CDT [facility] Blood BLOOD SPECIMEN / Unknown Lab Venipuncture / Unknown 07/15/2015 5:50 AM CDT 07/15/2015 6:11 AM CDT Chucho Hinton MD LAB - HEMATOLOGY ORD ERABLES Performing Organization Address [facility] Co de Phone Number [facility] [address] [place] [phone] * (ABNORMAL) LACTOFERRIN FECAL QUALITATIVE (07/14/2015 1:44 PM CDT) [facility] Lactoferrin Fecal Positive( A) Negative 07/14/2015 9:15 PM CDT [facility] Stool STOOL SPECIMEN / Unknown Collection / Unknown 07/14/2015 1:44 PM CDT 07/14/2015 3:56 PM CDT Narrative [facility] - 07/14/2015 9:15 PM CDT Fecal lactoferrin is a marker for fecal leukocytes. CAUTION: A negative result does not exclude the presence of intestinal inflammation. This test is not recommended for children who are breast-fed; the presence of lactoferrin in breast milk can give false-positive results. Chucho Hinton MD LAB - BODY FLUID ORD ERABLES Performing Organization Address City/[facility]/ZIP Co de Phone Number [facility] [address] [place] [address], [facility] [phone] * CLOSTRIDIUM DIFFICILE GDH AG + TOXIN A+B (07/14/2015 1:43 PM CDT) GDH Antigen Negative Negative, Invalid 07/15/2015 9:08 AM CDT [facility] C difficile Toxin A + B Negative Negative, Invalid 07/15/2015 9:08 AM CDT [facility] Interpretation C difficile Negative for toxigenic C. difficile Negative for toxigenic C. difficile 07/15/2015 9:08 AM CDT [facility] Stool STOOL SPECIMEN / Unknown Collection / Unknown 07/14/2015 1:43 PM CDT 07/14/2015 3:55 PM CDT Chucho Hinton MD LAB - MICROBIOLOGY O RDERABLES Performing Organization Address [facility] Co de Phone Number [facility] [address] [place] [address], [facility] [phone] * XR HANDS BILATERAL 2 VIEWS (06/29/2015 1:18 PM UNIX SYSTEMS ADMINISTRATOR) Anatomical Region Laterality Modality Wrist / Hand, Upper Extremity Ra diographic Imaging 06/29/2015 7:37 PM UNIX SYSTEMS ADMINISTRATOR Impressions 06/29/2015 7:38 PM UNIX SYSTEMS ADMINISTRATOR Normal radiographs of both hands. Narrative 06/29/2015 7:38 PM UNIX SYSTEMS ADMINISTRATOR BILATERAL HANDS, TWO VIEWS OF EACH HISTORY: [...] [facility] TRINO Olivarez ORDERABLES Care Teams Seasonal Package Handler Relationship Specialty Start Date End Date Feliciano Dash MD [address] [facility] [address] [place] [address] PCP - General 07/14/21 Jonathan Hartman, RN Security Services Manager 07/14/15
--- OUTSIDE RECORDS SUMMARY | 2024-05-14 08:26 | XMS_ITS | Referral Summary ---
Author Organization [facility] Adype Address [address] [facility] [place] [address] Care Team Providers Care Caramel Cutter Hand Name Role Phone Jonathan Hartman RN Unavailable [phone] Feliciano Dash MD Primary Care Provider [phone] Source Comments [facility],non-owned Affiliates and Associated Physician Practices is amultiple site organization consisting of ambulatory clinics and hospital sitesin [place], [place], [place] and [place]. This disclosure is being madepursuant to the Care Everywhere program and may not contain all information available regarding this patient. Last updated 18.[facility] Allergies Active Allergy Reactions Criticality [...] transdermal route every 24 hours. Obtains from [facility] in [place]. 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 Obtains from [facility] in [place]. 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 [...] Ratio 2.6 <5.0 08/02/2015 10:49 AM CDT [facility] Blood BLOOD SPECIMEN / Unknown Lab Venipuncture / Unknown 08/02/2015 10:02 AM CDT 08/02/2015 10:13 AM CDT Chucho Hinton MD LAB - CHEMISTRY MORGAN Arcos Organization Address City/State/ZIP Co de Phone Number [facility] [address] [place] [address] from Last 3 Months or Most Recently Relevant to Health Maintenance Advance Directives * Full Code (Latest Code Status on File) Date Activated Date Inactivated Comments 01/29/2017 7:53 PM 02/02/2017 1:02 PM * Full Code Date Activated Date Inactivated Comments 08/02/2015 1:57 AM 08/05/2015 3:00 PM * Full Code Date Activated Date Inactivated Comments 07/13/2015 10:36 PM 07/16/2015 3:55 PM Care Teams Caramel Cutter Hand Relationship Specialty Start Date End Date Feliciano Dash MD [address] [facility] [address] [place] [phone] PCP - General 07/14/21 Jonathan Hartman, RN Cook Barbecue 07/14/15
--- OUTSIDE RECORDS SUMMARY | 2024-05-14 08:26 | XMS_ITS | Clinical Summary ---
Author Organization [facility] Address [address] [place] [address] Care Team Providers Care Coke Crane Operator Name Role Phone Jonathan Hartman RN Unavailable [phone] Feliciano Dash MD Primary Care Provider Source Comments [facility],non-owned Affiliates and Associated Physician Practices is amultiple site organization consisting of ambulatory clinics and hospital sitesin [place], [place], [place] and [place]. This disclosure is being madepursuant to the Care Everywhere program and may not contain all information available regarding this patient. Last updated 18.[facility] Allergies Active Allergy Reactions Criticality [...] transdermal route every 24 hours. Obtains from [facility] in [place]. 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 Obtains from [facility] in [place]. 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 [...] PAP SMEAR 1974 COVID-19 VACCINE (#1) 1979 HIV SCREENING 1989 HEPATITIS C SCREENING 05/16/1992 DTAP/TDAP/TD VACCINES (1 - Tdap) 1993 HEPATITIS B VACCINE (1 of 3 - 19+ 3-dose series) 1993 PNEUMOCOCCAL VACCINE (1 of 2 - PCV) 1993 ZOSTER VACCINE (1 of 2) 1993 LIPID TESTING 08/01/2020 08/02/2015 INFLUENZA VACCINE (#1) 2023 01/30/2017 DEPRESSION SCREENING 04/22/2024 COLON MONITORING 12/14/2025 12/15/2015, , 12/15/2015, Additional history exists COLONOSCOPY - COLON CA SCREENING 12/14/2025 12/15/2015, 12/15/2015, 12/15/2015, Additional history exists Colorectal Cancer Screening 12/14/2025 HIB VACCINE Aged Out No longer eligi ble based on patient's age to complete this topic HPV VACCINE Aged Out No longer eligi ble based on patient's age to complete this topic MENINGOCOCCAL (Group B) VACCINE Aged Out No longer eligible based on [...] 184 <200 mg/dL 08/02/2015 10:49 AM CDT [facility] Triglycerides 156(H) <150 mg/dL 08/02/2015 10:49 AM CDT [facility] HDL Cholesterol 43 >40 mg/dL 08/02/2015 10:49 AM CDT [facility] LDL Calculated 110 <130 mg/dL 08/02/2015 10:49 AM CDT [facility] VLDL Calculated 31(H) <=30 mg/dL 08/02/2015 10:49 AM CDT [facility] Chol HDL Ratio 4.3 <4.5 08/02/2015 10:49 AM CDT [facility] LDL/HDL Ratio 2.6 <5.0 08/02/2015 10:49 AM CDT [facility] Blood BLOOD SPECIMEN / Unknown Lab Venipuncture / Unknown 08/02/2015 10:02 AM CDT 08/02/2015 10:13 AM CDT Chucho Hinton MD LAB - CHEMISTRY [facility] Y[facility] Organization Address City/State/[facility] Co de Phone Number [facility] [address] [place] [address] from Last 3 Months or Most Recently Relevant to Health Maintenance Advance Directives * Full Code (Latest Code Status on File) Date Activated Date Inactivated Comments 01/29/2017 7:53 PM 02/02/2017 1:02 PM * Full Code Date Activated Date Inactivated Comments 08/02/2015 1:57 AM 08/05/2015 3:00 PM * Full Code Date Activated Date Inactivated Comments 07/13/2015 10:36 PM 07/16/2015 3:55 PM Care Teams Coke Crane Operator Relationship Specialty Start Date End Date Feliciano Dash MD [address] [place] [address] PCP - General 07/14/21 Jonathan Hartman RN Ballast Inspector 07/14/15
--- OUTSIDE RECORDS SUMMARY | 2024-05-14 08:27 | XMS_ITS ---
Author Organization [facility] Address [address] [place] [address] Care Team Providers Care Software Quality Manager Name Role Phone NADINE WHITE Unavailable [phone] Allergies No Known Allergies Reason For Referral Reason EVAL AND TREAT Diagnosis 1 Chronic pain syndrom e (G89.4) Referral Organization [facility] [place] Referring Provider First Name TERESA Ref[facility] Referring Provider Speciality Physician Environmental Services Lead Referred Provider Specialty Pain Medicin e Referral [...] Problem Status W/U Status Risk Notes Problem [id number] Chronic pain syndrome (G89.4) Active confirmed Vital Signs Height 66 in 02/25/2024 Weight 200 lbs 02/25/2024 BMI 32.28 kg/m2 02/25/2024 Patient Reported Normal Bloo d PressurePatient Reported Normal Temperature Encounters Encounter Location Date Provider Diagnosis [facility] [address] [place] [address] 02/25/2024 NADINE WHITE Chronic pain syndrom e [...] * Madalyn SAUERDOB:1975 ( 48 yo F)Acc No.[id number]:02/25/2024 Patient:Madalyn LUJAN Provider:?NADINE WHITE, DO :1975???Age:48 Y???Sex:Female D ate:02/25/2024 Phone: Address:[facility] [address] [facility] Subjective: * Chief Complaints: * ???General HealthPatient [...] comply with the follow-up plan.?? * Procedure Codes:?[facility] Garsia ant / CC Processing [id number] Office Visit, Est Pt., Level 3 Virtual Visit, Modifiers: 95 * Follow Up:?PCP, 2W * Billing Information: * Visit Code:? * Procedure Codes:? [facility] Digital Orchidt / CC Processing Fee. [id number] Office Visit, Est Pt., Level 3 Virtual Visit. Modifiers: 95 * Sign off status: Completed true * Provider:?NADINE WHITE, DO Date:? 024 Generated for Tree regalado/Caryl/eTvidhismitting on:?05/14/2024 09:26 AM EST History and Physical Notes * HPI [...]
--- OUTSIDE RECORDS SUMMARY | 2024-05-14 08:27 | XMS_ITS | Clinical Summary ---
Author Organization [facility] Address [address] [place] [address] Phone Care Team Providers Care Target Developer Name Role Phone Isaiah Quiros MD Primary Care Provider [phone] Allergies No known active allergies Medications topiramate (TROKENDI XR) 200 mg Extended Release 24 hour capsuleIndicati ons:Migraine headache Take 100 mg by mouth 2 times daily. Active ondansetron (ZOFRAN ODT) 4 mg Tablet, Rapid DissolveIndicat ions:Migraine headache Place 1 Tab under tongue every 8 hours as needed for Nausea/Emesis. 15 Tab 0 4 Active etanercept (ENBREL) 25 mg (1 mL) Recon Soln Inject 25 mg by subcutaneous injection one time only. Active DULoxetine (CYMBALTA) 60 mg Capsule, Delayed Release(E.C.) Take 60 mg by mouth daily. Active buPROPion HCl (WELLBUTRIN XL) 300 mg Extended Release 24 hour tablet Take 300 mg by mouth daily angle furnaceman. Active pregabalin (LYRICA) 100 mg Capsule Take 100 mg by mouth. Active lubiprostone (AMITIZA) 24 mcg CapsuleIndicati ons:constipatio n Take 24 mcg by mouth 2 times daily with meals. Active azaTHIOprine (AZASAN) 100 mg tabletIndicatio ns:immunosuppre ssion Take by mouth. Activ e traZODone (DESYREL) 100 mg tabletIndicatio ns:insomnia Take 100 mg by mouth daily at bedtime. Active polyethylene glycol 3350 (MIRALAX) 17 gram/dose Powder Take 1 SCOOP (17 Grams) by mouth 2 times daily as needed for Constipation. Dissolve in 8 ounces of fluid and drink entire liquid 527 Gram 9 Active docusate sodium (COLACE) 50 mg capsule Take 1 Capsule (50 mg) by mouth 3 times daily as needed for Constipation. 9 Active ALPRAZolam (XANAX) 0.5 mg tabletIndicatio ns:Abdominal pain, unspecified abdominal location Take 1 tablet by mouth 2 times daily. 6 Tablet 12/29/2018 5:28 PM CDT 9 Active pantoprazole (PROTONIX) 40 mg Tablet, Delayed Release (E.C.) TAKE 1 TABLET(40 MG) BY MOUTH DAILY 30 MINUTES BEFORE BREAKFAST 90 Tablet 6 0 Active dicyclomine (BENTYL) 10 mg capsuleIndicati ons:Intermitten t generalized abdominal pain TAKE 2 CAPSULES(20 MG) BY MOUTH EVERY 6 HOURS 120 Capsule 0 Active Active Problems Problem Noted Date Diagnosed [...] at Not on file Legal Sex Female 2:06 PM CDT Gender Identity Not on file Sexual Orientation Not on file Last Filed Vital Signs Vital Sign Reading Time Taken Comments Blood Pressure 131/87 04/01/2019 10:31 AM LAPEL PADDER BLINDSTITCH Pulse 101 04/01/2019 10:31 AM LAPEL PADDER BLINDSTITCH Temperature 36.4 ??C (97.6 ??F) 12/29/2018 12:00 PM C DT Respiratory Rate 18 12/29/2018 12:00 PM CDT Oxygen Saturation 99% 12/29/2018 12:00 PM CDT Inhaled Oxygen Concentration - - Weight 90.5 kg (199 lb 9.6 oz) 04/01/2019 10:31 AM LAPEL PADDER BLINDSTITCH Height 170.7 cm (5' 7.2 ) 04/01/2019 10:31 AM CS T Body Mass Index 31.08 04/01/2019 10:31 AM LAPEL PADDER BLINDSTITCH Plan of Treatment Health Maintenance Due Date [...] VACCINES (2 - Td or Tdap) 05/10/2027 Insurance [employer] Commercial BLUE ACCESS/TRUE BLUE PPO Advance Directives For more information, please contact: [phone] * Full Code (Latest Code Status on File) Date Activated Date Inactivated Comments 12/27/2018 10:12 AM 12/29/2018 7:43 PM Care Teams Target Developer Relationship Specialty Start Date End Date Isaiah Quiros MD [address] [place] [address] PCP - General Internal Medicine 04/16/18
--- OUTSIDE RECORDS SUMMARY | 2024-05-14 08:27 | XMS_ITS | Clinical Summary ---
Author Organization [facility] Address [address], [address] [address] Phone Care Team Providers Care Learning Facilitator Name Role Phone Marbin Fair DO Unavailable [phone] Amadeo Hernandez MD Unavailable Isaiah Quiros MD Primary Care Provider [phone] Medications cholestyramine (QUESTRAN) 4 GM Pack Take 1 Packet by mouth 2 times daily (with meals). 180 Packet 3 03/09/2019 Active Social History Tobacco Use Types Packs/Day Years Used Date Smoking Tobacco: Never Assessed Comments Unknown Sex and Gender Information Value Date Recorded Sex Assigned at Not on file Legal Sex Female 3:35 PM ROLL SKINNER Gender Identity Not on file Sexual Orientation [...] Relevant to Health Maintenance Insurance Care Teams Learning Facilitator Relationship Specialty Start Date End Date Isaiah Quiros MD [address], [address] [place] [address] PCP - General Internal Medicine 05/08/18 Marbin Fair DO Gastroenterology 12/03/16 Amadeo Hernandez MD [address] [address] 12/03/16
--- OUTSIDE RECORDS SUMMARY | 2024-05-14 08:27 | XMS_ITS | Clinical Summary ---
Author Organization [facility] Address [address] [place] [address]. [place], [place] [address] [place] [address] Care Team Providers Care Word Processor Name Role Phone Bhupinder Tobias MD Primary Care Provider [phone] Allergies No known active allergies Medications HYDROcodone-ibup [...] on file Legal Sex Female 12:23 PM FRUIT RAISER Gender Identity Not on file Sexual Orientation Not on file Last Filed Vital Signs Vital Sign Reading Time Taken Comments Blood Pressure 108/79 03/01/2021 3:00 PM FRUIT RAISER Pulse 79 03/01/2021 3:00 PM FRUIT RAISER Temperature 36.2 ??C (97.2 ??F) 03/01/2021 1 2:34 PM FRUIT RAISER Respiratory Rate 16 03/01/2021 3:00 PM FRUIT RAISER Oxygen Saturation 98% 03/01/2021 3:00 PM FRUIT RAISER Inhaled Oxygen Concentration - - Weight 86.1 kg (189 lb 13.1 oz) 021 12:34 PM FRUIT RAISER Height 167.6 cm (5' 6 ) 03/01/2021 12:3 4 PM FRUIT RAISER Body Mass Index 30.64 03/01/2021 12:34 PM FRUIT RAISER Plan of Treatment Health Maintenance Due Date [...] patient's age to complete this topic Insurance [facility] Care Teams Word Processor Relationship Specialty Start Date End Date Bhupinder Tobias MD [address] [place] [address] PCP - General INTERNAL MEDICINE 03/01/21
--- OUTSIDE RECORDS SUMMARY | 2024-05-14 08:27 | XMS_ITS | Patient Health Record ---
Author Organization [facility] Address [address] [place] [address] Care Team Providers Care Comber Tender Name Role Phone NADINE RUSH Unavailable [phone] Allergies No Known Allergies Reason For Referral Reason EVAL AND TREAT Diagnosis 1 Chronic pain syndrom e (G89.4) Referral Organization [facility] Referring Provider First Name TERESA Referring Provider Last Name KARL Referring Provider Speciality Physician Cleaning Technician Referred Provider Specialty Pain Medicin e Referral Priority Routine Referral Appointment Date 02/25/2024 Social History Tobacco Use: Social History Observation Description Date Details (start date - stop date) Former Smoker NA - NA Tobacco Control (Standard) Question Answer Notes Tobacco use: Former smoker Problems Problem Type SNOMED Code ICD Code Onset Dates Problem Status W/U Status Risk Notes Problem [id number] Chronic pain syndrome (G89.4) Active confirmed Vital Signs Height 66 in 02/25/2024 Patient Reported Normal Blood Pressure Patient Reported Normal Temperature Weight 200 lbs 02/25/2024 Patient Reported Normal Blood Pressure Patient Reported Normal Temperature BMI 32.28 kg/m2 02/25/2024 Patient Reported Normal Blood Pressure Patient Reported Normal Temperature Encounters Encounter Location Date Provider Diagnosis [facility] [address] [place] [address] 02/25/2024 NADINE RUSH Chronic pain syndrom e [...] Insured Coverage Start Date Coverage End Date [facility] [address] [place] [address] [id number] Madalyn Smith Self - patient is the insured Medical (General) History Medical History History ICD Code Meredith Camilla 05/23/1990 Obesity
--- OUTSIDE RECORDS SUMMARY | 2024-05-14 08:28 | XMS_ITS | Patient Health Record ---
Author Organization [facility] Address [address] [facility] [address] [place] [address] Care Team Providers Care Motion Picture Commentator Name Role Phone Jose Zhang DO Primary Care Provider UnavailAlix Sher Unavailable [phone] Mario Diaz Unavailable [phone] Natty Grier Unavailable [phone] Chari Pappas Unavailable [phone] Migration, Provider Unavailable Unavailable Jyoti New Unavailable [phone] Allergies No Known Allergies Results Component Value [...] Oxazepam (BZO) p 0 - 300 ng/ml 3-ksdofwpmcu-9,4-qltzuhbt-3, 3-diphenylpyrrolidine (EDDP) n 0 - 300 ng/ml Methamphetamine (MET) n 0 - 1000 ng/ml Methylenedioxymethamphetamine (MDMA) n 0 - 500 ng/ml Morphine (MOP 300/IVP8920) n 0 - 300 ng/ml Methadone (MTD) [...] Oxazepam (BZO) pos 0 - 300 ng/ml 4-cbawocimal-0,9-itrbbric-1, 3-diphenylpyrrolidine (EDDP) neg 0 - 300 ng/ml Methamphetamine (MET) neg 0 - 1000 ng/ml Methylenedioxymethamphetamine (MDMA) neg 0 - 500 ng/ml Morphine (MOP 300/GOW4721) pos 0 - 300 ng/ml Methadone (MTD) [...] ER 15 mEq Oral *Pick strength-form from [employer] for eRX* Active ALPRAZolam 0.5 MG 1 [...] Active LUBIPROSTONE 24 MCG CAPSULE *Reorder from [employer] for eRx and Interaction Alerts* Active SUMAtriptan [...] employed?: NoWho is your employer?: I have [employer] and have been ?retired? for 5 years.Marriage and SexualityWhat is your relationship status?: MarriedAre you sexually active?: NoDo you use protection during sex?: NoHow many children do you have?: 5Home and EnvironmentAre there any guns present in your home?: NoAdvance DirectiveDo you have an advance directive?: NoDo you have a medical power of manager managed backup services?: No Social History Substance UseDo you or [...] technical, or vocational programAre you currently employed?: NoWAdChoice is your employer?: I have [employer] and have been ?retired? for 5 years.Marriage and SexualityWhat is your relationship status?: MarriedAre you sexually active?: NoDo you use protection during sex?: NoHow many children do you have?: 5Home and EnvironmentAre there any guns present in your home?: NoAdvance DirectiveDo you have an advance directive?: NoDo you have a medical power of manager managed backup services?: No Social History Substance UseDo you or [...] technical, or vocational programAre you currently employed?: NoWAdChoice is your employer?: I have [employer] and have been ?retired? for 5 years.Marriage and SexualityWhat is your relationship status?: MarriedAre you sexually active?: NoDo you use protection during sex?: NoHow many children do you have?: 5Home and EnvironmentAre there any guns present in your home?: NoAdvance DirectiveDo you have an advance directive?: NoDo you have a medical power of manager managed backup services?: No Social History Substance UseDo you or [...] technical, or vocational programAre you currently employed?: NoWAdChoice is your employer?: I have [employer] and have been ?retired? for 5 years.Marriage and SexualityWhat is your relationship status?: MarriedAre you sexually active?: NoDo you use protection during sex?: NoHow many children do you have?: 5Home and EnvironmentAre there any guns present in your home?: NoAdvance DirectiveDo you have an advance directive?: NoDo you have a medical power of manager managed backup services?: No Social History Substance UseDo you or [...] NoDo you have a medical power of manager managed backup services?: No Problems Problem Type SNOMED Code ICD Code Onset Dates Problem Status W/U Status Risk Notes Problem Generalized anxiety disorder (02471473) Generalized anxiety disorder (F41.1) 4 Active confirmed Problem Insomnia disorder related to another mental disorder (90349763) 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 Active confirmed 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 Vital Signs Heart Rate 88 /min 04/16/2024 Height-cm 167.64 cm 04/16/2024 Blood pressure diastolic 80 mm Hg 04/16/2024 Weight-kg 102.06 kg 04/16/2024 Height 66.00 in 04/16/2024 Blood pressure systolic 152 mm Hg 04/16/2024 Weight 225.0 lbs 04/16/2024 BMI 36.31 kg/m2 04/16/2024 Encounters Encounter Location Date Provider Diagnosis [facility] [address] [facility] [address] [place] [address] 05/04/2024 Mario Diaz [facility] [employer] [address] [facility] [address] [place] [address] 09/11/2023 Chari Pappas Other watermaster (current) drug therapy Z79.899 ; Generalized anxiety disorder F41.1 and Insomnia due to other mental disorder F51.05 [facility] [address] [place] [address] 10/09/2023 Chari Pappas [facility] [address] [place] [address] 11/20/2023 Chari Mian Generalized anxiety disorder F41.1 ; Insomnia due to other mental disorder F51.05 and Other watermaster (current) drug therapy Z79.899 [facility] [address] [place] [address] 11/21/2023 Jyotimadina Saavedraromán Generalized anxiety disorder F41.1 [facility] [address] [place] [address] 12/05/2023 Jyoti Saavedraliter Generalized anxiety disorder F41.1 [facility] [address] [place] [address] 01/30/2024 Chari Pappas Generalized anxiety disorder F41.1 ; Insomnia due to other mental disorder F51.05 and Other fdc (current) drug therapy Z79.899 [facility], [facility] [address] [place] [address] 04/16/2024 Alixdonna Sanchez Generalized anxiety disorder F41.1 ; Insomnia due to other mental disorder F51.05 ; 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 and Elevated BP without diagnosis of hypertension R03.0 [facility] [address] [place] [address] 08/29/2023 Provider Migration [facility], [facility] [address] [place] [address] 09/07/2023 Provider Migration [facility], [facility] [address] [place] [address] 09/08/2023 Provider Migration [facility], [facility] [address] [place] [address] 09/11/[address] [facility], [facility] [address] [place] [address] 09/26/2023 Chari Pappas [facility], [facility] [address] [place] [address] 10/14/2023 Natty Grier [facility], [facility] [address] [place] [address] 10/15/2023 Chari [employer] [facility], [facility] [address] [place] [address] 11/18/2023 Chari [employer] [facility], [facility] [address] [facility] [address] [place] [address] 11/19/2023 Chari [employer] [facility], [facility] [address] [facility] [address] [place] [address] 01/21/2024 Natty Cherrie Generalized anxiety disorder F41.1 [facility], [facility] [address] [facility] [address] [place] [address] 05/04/2024 Mario Diaz [facility], [facility] [address] [facility] [address] [place] [address] 11/18/2023 Chari [employer] [facility] [address], [facility] [address] [facility] [address] [place] [address] 11/18/2023 Chari [employer] [facility] [address], [facility] [address] [facility] [address] [place] [address] 11/18/2023 Chari [employer] [facility] [address], [facility] [address] [facility] [address] [place] [address] 04/02/2024 Assessments Encounter Date Diagnosis (ICD Code) [...] in 2 months, earlier if concerns notes: 5/22/24 BZO: goal to minimize bzo, r/b/se, worsening [...] willing to try taper. has been given [place] bzo risks handout 11/20/2023 Insomnia due to other mental disorder (ICD-10 - F51.05) r/t anxiety cont trazodone 100mg qhs practice good sleep hygiene 09/11/2023 Generalized anxiety disorder (ICD-10 - F41.1) 09/11/2023 Insomnia due to other mental disorder (ICD-10 - F51.05) 09/11/2023 Other fdc (current) drug therapy (ICD-10 - Z79.899) 11/21/2023 [...] rheumatoid arthritis Spiritual Beliefs: a mishmash between Sabianist, Catholicism.I don't know. 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 - Encourage [...] qhs practice good sleep hygiene 11/20/2023 Other watermaster (current) drug therapy (ICD-10 - Z79.899) UDS consistent with pain management/opi ate, cannabis and alprazolam 01/30/2024 Other fdc (current) drug therapy (ICD-10 - Z79.899) 04/16/2024 [...] Plan Of Treatment Next Appt Details Provider Name:Alixdonna Willsnato goldman, 06/12/2024 02:45:00 PM, [address], [address], [place], [address], Insurance Providers Payer Name Payer Address Payer Phone Subscriber Number Group Number Insured Name Patient Relationship to Insured Coverage Start Date Coverage End Date [facility] [address] [place] [address] [id number] JULIAN SAUER Self - patient is the insured Medical (General) History Medical History History ICD Code Insomnia disorder related to another men linda disorder Past Psychiatric History: Anxiety Disord er,PTSD essential tremor Mixed irritable bowel syndrome K58.2 RA (rheumatoid arthritis) M06.9 Anemia, unspecified D64.9 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 Chronic pain syndrome G89.4 Surgical History Surgery Date(Month/Year) Sinus surgery Tonsilectomy/adenoids 04/22/1980 Hysterectomy (34351) 03/01/2023 oopherectomy 12/2023
--- OUTSIDE RECORDS SUMMARY | 2024-05-14 08:28 | XMS_ITS | Continuity of Care Document ---
Author Organization [facility] Address [address] [place] [address] Phone Care Team Providers Care Ultrasonic Hand Solderer Name Role Phone Amadeo Arias MD Unavailable [...] Copied on Encounter OFFICE/OUTPAT IENT VISIT EST [facility], [address] [address], [place], [address], tel:[phone] [facility] [place] Patellofemoral instability, rightOther specified sprain of right wrist, initial encounter 0 6 Hugo Childs. [address], [place], [place], [id number] . tel: [phone] [facility], [address], [place], [address], [place] tel:[phone] [facility] Acute bilateral low back pain without sciaticaLeft hip painArthralgia of right hipPatellofemo ral instability, leftPatellofem oral instability, right 6 Hugo Childs. [address], [place], [place], [id number] . tel: [phone] OFFICE CONSULTATION [facility], [address], [place], [address], tel:[phone] [facility] [place] Patellofemoral instability, rightPatellofe moral instability, leftArthralgia of right hipLeft hip painAcute bilateral low back pain without sciatica 201 6 Hugo Childs. [address], [place], [place], [id number] . tel: [phone] Referring Provider: Michelle De La Torre[address], [place], [address] . tel:[phone] Family History Family Member Type Diagnosis Age At Onset Sister Problem (finding) Alive and well Payers Payer name Insurance type Covered green party ID Authoriza tion(s) [facility] Choice/Choice Plus [id number] Social History Type Description Quantity Date Captured [...]
--- OUTSIDE RECORDS SUMMARY | 2024-05-14 08:28 | XMS_ITS ---
Author Organization [facility] Address [address] [place] [address] Care Team Providers Care Button Grader Name Role Phone Jose Zhang DO Primary Care Provider UnavailAlix Sher Unavailable [phone] Allergies No Known Allergies REASON FOR VISIT f/u medication eval Medications Medication SIG (Take, Route, Frequency, Duration) Notes Start Date End Date Status Pantoprazole Sodium 40 MG Oral Active Potassium Citrate ER 15 mEq Oral *Pick strength-form from [employer] for eRX* Active ALPRAZolam 0.5 MG 1 [...] Active LUBIPROSTONE 24 MCG CAPSULE *Reorder from [employer] for eRx and Interaction Alerts* Active Ondansetron [...] NoDo you have a medical power of attorney recruiter?: No Problems Problem Type SNOMED Code ICD Code Onset Dates Problem Status W/U Status Risk Notes Problem Meredith-Danlos syndrome (260311367) EDS (Meredith-Eric los syndrome) (Q79.60) Active confirmed Vital Signs Blood pressure systolic 152 mm Hg 04/16/20 24 Blood pressure diastolic 80 mm Hg 024 Heart Rate 88 /min 04/16/2024 Height 66.00 in 04/16/2024 Weight 225.0 lbs 04/16/2024 BMI 36.31 kg/m2 04/16/2024 Height-cm 167.64 cm 04/16/2024 Weight-kg 102.06 kg 04/16/2024 Encounters Encounter [facility] Date [facility] [address] [place] [address] 04/16/2024 Alix Sanchez Generalized anxiety disorder F41.1 [...] Details Follow Up: 2 Months, Reason: Provider Name:Alix goldman, 06/12/2024 02:45:00 PM, [address], [address], [place], [address], Progress Notes * CAMACHO JULIANDOB:1975 ( 48 yo F)Acc No.[id number]:04/16/2024 Patient:JULIAN LUJAN Provider:Piper Sanchez :1975???Age:48 Y???Sex:Female D ate:04/16/2024 Address:[address] [place] [address], [id number] Pcp:Jose Zhang DO Subjective: * Chief Complaints: [...] other people??Extremely difficult,?Interpretation of Total?(10 to 14) Moderate.?[place]-Suicide Severity Rating Scale:?Suicide Risk (CSRS-screener)?in the past [...] * Surgical History:?Sinus surg millie Tonsilectomy/adenoids 04/22/1980Hysterectomy (69412) 03/01/2023oopherectomy 12/2023 * Hospitalization/Major Diagno stic Procedure:? 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 Advance Care Planning?Are you your own decision-maker?Yes,?Do you have Power of Leaf Tier for Health or Medical??No.?Social History:?Household?Marital Status:?,?Number of [...] technical, or vocational programAre you currently employed?: [employer] is your employer?: I have [employer] and have been ?retired? for 5 years.Marriage and SexualityWhat is your relationship status?: MarriedAre you sexually active?: NoDo you use protection during sex?: NoHow many children do you have?: 5Home and EnvironmentAre there any guns present in your home?: NoAdvance DirectiveDo you have an advance directive?: NoDo you have a medical power of attorney recruiter?: No. * Medications:?TakingDULoxetin e HCl 60 MG [...] CAPSULE , Notes to Pharmacist: *Reorder from [facility] for eRx and Interaction Alerts*SUMAtriptan Succinate 6 MG/0.5ML Solution Auto-injector Subcutaneous Pantoprazole Sodium 40 MG Tablet Delayed Release Oral Potassium Citrate ER 15 mEq Tablet Extended Release Oral , Notes to Pharmacist: *Pick strength-form from [facility] for eRX*ALPRAZolam 0.5 MG Tablet 1 tablet [...] CAPSULE , Notes to Pharmacist: *Reorder from [facility] for eRx and Interaction Alerts*Taking SUMAtriptan Succinate 6 MG/0.5ML Solution Auto-injector Subcutaneous Taking Pantoprazole Sodium 40 MG Tablet Delayed Release Oral Taking Potassium Citrate ER 15 mEq Tablet Extended Release Oral , Notes to Pharmacist: *Pick strength-form from [employer] for eRX*Taking ALPRAZolam 0.5 MG Tablet 1 [...] days, 30 Tablet, Refills 1.?? * Procedure Codes:?08681 BEHAV ASSMT W/SCORE & DOCD/STAND [id number] VISIT COMPLEXITY INHERENT TO ONGOING CARE RELATED [...] Months * Billing Information: * Visit Code:? 19572 OFFICE OUTPATIENT VISIT 25 MINUTES DETAILED HISTORY AND EXAM/MODERATE MEDICAL DECISION MAKING. * Procedure Codes:? 71083 BEHAV ASSMT W/SCORE & DOCD/STAND INSTRUMENT. G2211 VISIT COMPLEXITY INHERENT TO ONGOING CARE RELATED TO A PATIENT'S SINGLE, SERIOUS CONDITION OR A COMPLEX CONDITION. * REPAIRER Electronically co-signed by Alix Sanchez on 04/28/2024 at 05:16 PM SHOP REPAIRER Sign off status: Completed true * Provider:Piper Sanchez Date:? 024 Generated for Tree regalado/Caryl/Katransmdeep on:?05/14/2024 08:28 AM SHOP REPAIRER History and Physical Notes * HPI (History [...] of Total: (10 to 14) Mode rate [place]-Suicide Severity Rating Scale Suicide Risk (CSRS-screener) in [...]
--- OUTSIDE RECORDS SUMMARY | 2024-05-14 08:28 | XMS_ITS | Referral Summary ---
Author Organization [id number] Address [address] [place] [address] Phone Care Team Providers Care Molding Machine Tender Name Role Phone Kumar CARRILLO MD, John J. Unavailable [phone] Bhupinder Tobias MD Primary Care Provider [phone] Jorge Aguiar MD Unavailable [phone] Khoa Arias MD Unavailable [phone] Allergies No known active allergies Medications [...] (08/30/2021): Added automatically from request for surgery [id number] Abdominal pain 03/31/2021 Assessment & Plan (06/28/2021 10:08 AM BEAM DYER RECESSED VAT): Recently dx with mild pancreatitis. Needs lipase/amylase rechecked. Still has some upper abd pain. Advised pt to f/u with GI also. Assessment & Plan (06/19/2021 8:52 AM BEAM DYER RECESSED VAT): Had abd pain early this month, check amyl/lip and ua. Pain has resolved. Assessment & Plan (05/05/2021 10:13 PM BEAM DYER RECESSED VAT): Having abd pain, bloating, constipation. On meds for IBS and also using suppositories to have BM. Incidental findings of mesenteric fat stranding (adenitis or panniculitis) on abd CT. Awaiting further eval by Dr. Arias. Assessment & Plan (03/31/2021 8:44 AM BEAM DYER RECESSED VAT): Elevated lipase. Imuran stopped. Pt advised to [...] 04/23/2019 Assessment & Plan (03/24/2020 7:29 AM BEAM DYER RECESSED VAT): Normal serum immunoglobulins. Assessment & Plan (01/21/2020 [...] immunoglobulins. Assessment & Plan (04/23/2019 1:46 PM BEAM DYER RECESSED VAT): Check serum immunoglobulins. Osteoporosis without current pathological fractu re 09/18/2018 Assessment & Plan (08/10/2021 8:09 AM CDT): bds checked by pcp in past, is taking ca and vit d and pcp checked vit D and PTH per pt was wnl. Her pcp started her on alendronate 70mg po qweek. Taking ca + vit d 1200mg qd. Assessment & Plan (06/15/2021 10:46 AM BEAM DYER RECESSED VAT): bds checked by pcp in past, is taking ca and vit d and pcp checked vit D and PTH per pt was wnl. Her pcp started her on alendronate 70mg po qweek. Taking ca + vit d 1200mg qd. Assessment & Plan (06/09/2021 8:30 AM BEAM DYER RECESSED VAT): bds checked by pcp in past, is taking ca and vit d and pcp checked vit D and PTH per pt was wnl. Her pcp started her on alendronate 70mg po qweek. Taking ca + vit d 1200mg qd. Assessment & Plan (05/04/2021 8:19 AM BEAM DYER RECESSED VAT): bds checked by pcp in past, is [...] qd. Assessment & Plan (06/03/2020 7:38 AM BEAM DYER RECESSED VAT): bds checked by pcp in past, is taking ca and vit d and pcp checked vit D and PTH per pt was wnl. Her pcp started her on alendronate 70mg po qweek. Taking ca + vit d 1200mg qd. Assessment & Plan (03/25/2020 8:34 AM BEAM DYER RECESSED VAT): bds checked by pcp in past, is taking ca and vit d and pcp checked vit D and PTH per pt was wnl. Her pcp started her on alendronate 70mg po qweek. Taking ca + vit d 1200mg qd. Assessment & Plan (03/24/2020 7:29 AM BEAM DYER RECESSED VAT): bds checked by pcp in past, is [...] qd. Assessment & Plan (04/20/2019 4:56 PM BEAM DYER RECESSED VAT): bds checked by pcp in past, is [...] pcp. Assessment & Plan (06/03/2020 7:37 AM BEAM DYER RECESSED VAT): Was advised in past to get chest CT to r/o aortic aneurysm, to discuss with pcp. Assessment & Plan (03/25/2020 8:33 AM BEAM DYER RECESSED VAT): Was advised in past to get chest CT to r/o aortic aneurysm, to discuss with pcp. Assessment & Plan (03/24/2020 7:29 AM BEAM DYER RECESSED VAT): Was advised in past to get chest [...] pcp. Assessment & Plan (04/20/2019 4:57 PM BEAM DYER RECESSED VAT): Advised to get chest CT to r/o aortic aneurysm, to discuss with pcp. Assessment & Plan (10/31/2018 7:38 AM CDT): Advised to get chest CT to r/o aortic aneurysm, to discuss with pcp. Encounter for long-term (current) use of medicat ions 01/31/2017 Assessment & Plan (05/28/2022 8:07 AM BEAM DYER RECESSED VAT): Quant gold neg 12/2019 Hep B and [...] showed osteoporosis [facility] 08/2019---[facility] labs reveal positive anti-NFL PLAYER antibody which is likely a false positive due to negative ASHLEY. Her father had psoriasis, pt changed from ra to PsA on 03/25/2020. ?? Assessment & Plan (02/26/2022 8:16 AM BEAM DYER RECESSED VAT): Quant gold neg 12/2019 Hep B and [...] showed osteoporosis [facility] 08/2019---[facility] labs reveal positive anti-NFL PLAYER antibody which is likely a false positive [...] showed osteoporosis [facility] 08/2019---[facility] labs reveal positive anti-NFL PLAYER antibody which is likely a false positive [...] showed osteoporosis [facility] 08/2019---[facility] reveal positive anti-NFL PLAYER antibody which is likely a false positive [...] showed osteoporosis [facility] 08/2019---[facility] labs reveal positive anti-NFL PLAYER antibody which is likely a false positive [...] showed osteoporosis [facility] 08/2019---[facility] labs reveal positive anti-NFL PLAYER antibody which is likely a false positive due to negative ASHLEY. Her father had psoriasis, pt changed from ra to PsA on 03/25/2020. ?? Assessment & Plan (06/28/2021 8:44 AM BEAM DYER RECESSED VAT): Quant gold neg 12/2019 Hep B and [...] showed osteoporosis [facility] 08/2019---[facility] labs reveal positive anti-NFL PLAYER antibody which is likely a false positive due to negative ASHLEY. Her father had psoriasis, pt changed from ra to PsA on 03/25/2020. ?? Assessment & Plan (06/15/2021 10:44 AM BEAM DYER RECESSED VAT): Quant gold neg 12/2019 Hep B and [...] showed osteoporosis [facility] 08/2019---[facility] labs reveal positive anti-NFL PLAYER antibody which is likely a false positive due to negative ASHLEY. Her father had psoriasis, pt changed from ra to PsA on 03/25/2020. ?? Assessment & Plan (06/09/2021 10:15 AM BEAM DYER RECESSED VAT): Quant gold neg 12/2019 Hep B and [...] showed osteoporosis [facility] 08/2019---[facility] labs reveal positive anti-NFL PLAYER antibody which is likely a false positive due to negative ASHLEY. Her father had psoriasis, pt changed from ra to PsA on 03/25/2020. ?? Assessment & Plan (06/09/2021 8:29 AM BEAM DYER RECESSED VAT): Quant gold neg 12/2019 Hep B and [...] showed osteoporosis [facility] 08/2019---[facility] labs reveal positive anti-NFL PLAYER antibody which is likely a false positive due to negative ASHLEY. Her father had psoriasis, pt changed from ra to PsA on 03/25/2020. ?? Assessment & Plan (05/04/2021 8:19 AM BEAM DYER RECESSED VAT): Quant gold neg 12/2019 Hep B and [...] showed osteoporosis [facility] 08/2019---[facility] labs reveal positive anti-NFL PLAYER antibody which is likely a false positive due to negative ASHLEY. Her father had psoriasis, pt changed from ra to PsA on 03/25/2020. ?? Assessment & Plan (03/31/2021 9:20 AM BEAM DYER RECESSED VAT): Quant gold neg 12/2019 Hep B and [...] showed osteoporosis [facility] 08/2019---[facility] labs reveal positive anti-NFL PLAYER antibody which is likely a false positive [...] showed osteoporosis [facility] 08/2019---[facility] reveal positive anti-NFL PLAYER antibody which is likely a false positive [...] showed osteoporosis [facility] 08/2019---[facility] reveal positive anti-NFL PLAYER antibody which is likely a false positive [...] showed osteoporosis [facility] 08/2019---[facility] reveal positive anti-NFL PLAYER antibody which is likely a false positive [...] showed osteoporosis [facility] 08/2019---[facility] labs reveal positive anti-NFL PLAYER antibody which is likely a false positive due to negative ASHLEY. Her father had psoriasis, pt changed from ra to PsA on 03/25/2020. ?? Assessment & Plan (06/03/2020 2:56 PM BEAM DYER RECESSED VAT): Quant gold neg 12/2019 Hep B and [...] showed osteoporosis [facility] 08/2019---[facility] labs reveal positive anti-NFL PLAYER antibody which is likely a false positive due to negative ASHLEY. Her father had psoriasis, pt changed from ra to PsA on 03/25/2020. ?? Assessment & Plan (03/25/2020 3:03 PM BEAM DYER RECESSED VAT): Quant gold neg 12/2019 HLA B27 negative [...] showed osteoporosis [facility] 08/2019---[facility] labs reveal positive anti-NFL PLAYER antibody which is likely a false positive due to negative ASHLEY. Her father had psoriasis, pt changed from ra to PsA on 03/25/2020. ?? Assessment & Plan (03/24/2020 7:28 AM BEAM DYER RECESSED VAT): Quant gold neg 12/2019 HLA B27 negative [...] showed osteoporosis [facility] 08/2019---[facility] labs reveal positive anti-NFL PLAYER antibody which is likely a false positive [...] showed osteoporosis [facility] 08/2019---[facility] labs reveal positive anti-NFL PLAYER antibody which is likely a false positive [...] showed osteoporosis [facility] 08/2019---[facility] labs reveal positive anti-NFL PLAYER antibody which is likely a false positive [...] showed osteoporosis [facility] 08/2019---[facility] labs reveal positive anti-NFL PLAYER antibody which is likely a false positive [...] showed osteoporosis [facility] 08/2019---[facility] labs reveal positive anti-NFL PLAYER antibody which is likely a false positive [...] showed osteoporosis [facility] 08/2019---[facility] labs reveal positive anti-NFL PLAYER antibody which is likely a false positive [...] ?? Assessment & Plan (04/20/2019 4:59 PM BEAM DYER RECESSED VAT): Quant gold neg 10/2018. TPMT nl 17 [...] 01/31/2017 Assessment & Plan (05/28/2022 8:05 AM BEAM DYER RECESSED VAT): Images from the original note were not included. Had orencia infusion 05/02/2022. Continue orencia monotherapy. Off arava due to lipase elevation. Seeing gi at [facility] now. Renick and egd utd and nl in past year per pt. Had a nl pancreatic US recently with gi. Past serologies: [facility] panel 08/2019---labs reveal positive anti-NFL PLAYER antibody which is likely a false positive due to negative ASHLEY. ?? RF neg but has a possible family hx of psoriatic arthritis (father) so if she develops psoriasis diagnosis will change to psoriatic arthritis. Rt hand US 09/2019 showed: ??F/u 1 month. Assessment & Plan (02/26/2022 12:12 PM BEAM DYER RECESSED VAT): Images from the original note were not included. High cdai. Her orencia is scheduled tomorrow. Continue orencia monotherapy. Off arava due to lipase elevation. Seeing gi at [facility] now. Renick and egd utd and nl in past year per pt. Had a nl pancreatic US recently with gi. She could be flaring up since her orencia is due tomorrow, overall she still feels that it is helping her joints. Past serologies: [facility] panel 08/2019---labs reveal positive anti-NFL PLAYER antibody which is likely a false positive [...] no complications or infections. Seeing gi at [facility] now for her elevated lipase. Renick and egd utd and nl in past year per pt. If labs stable will restart low dose arava 10mg po every day. To stay off orencia until recovered from rt knee surgery. Past serologies: [facility] panel 08/2019---labs reveal positive anti-NFL PLAYER antibody which is likely a false positive [...] orencia is scheduled tomorrow. Seeing gi at [facility] now. Renick and egd utd and nl in past year per pt. Due to burden of dz will give her a short course of oral prednisone. Discussed risks and se of systemic steroids. Past serologies: [facility] panel 08/2019---labs reveal positive anti-NFL PLAYER antibody which is likely a false positive [...] orencia is scheduled tomorrow. Seeing gi at [facility] now. Renick and egd utd and nl in past year per pt. Due to burden of dz will give her a short course of oral prednisone. Discussed risks and se of systemic steroids. Past serologies: [facility] panel 08/2019---labs reveal positive anti-NFL PLAYER antibody which is likely a false positive [...] gi dr arias for her pancreatitis . Renick and egd utd and nl in past year per pt. Seen with dr woodruff today. Past serologies: [facility] panel 08/2019---labs reveal positive anti-NFL PLAYER antibody which is likely a false positive due to negative ASHLEY. ?? RF neg but has a possible family hx of psoriatic arthritis (father) so if she develops psoriasis diagnosis will change to psoriatic arthritis. Rt hand US 09/2019 showed: ??F/u 1 month. Assessment & Plan (06/28/2021 10:22 AM BEAM DYER RECESSED VAT): Images from the original note were not [...] Past serologies: [facility] panel 08/2019---labs reveal positive anti-NFL PLAYER antibody which is likely a false positive due to negative ASHLEY. ?? RF neg but has a possible family hx of psoriatic arthritis (father) so if she develops psoriasis diagnosis will change to psoriatic arthritis. Rt hand US 09/2019 showed: ??F/u 1 month. Assessment & Plan (06/15/2021 10:46 AM BEAM DYER RECESSED VAT): Images from the original note were not [...] Past serologies: [facility] panel 08/2019---labs reveal positive anti-NFL PLAYER antibody which is likely a false positive due to negative ASHLEY. ?? RF neg but has a possible family hx of psoriatic arthritis (father) so if she develops psoriasis diagnosis will change to psoriatic arthritis. Rt hand US 09/2019 showed: ??F/u 1 month. Assessment & Plan (06/09/2021 10:16 AM BEAM DYER RECESSED VAT): Images from the original note were not [...] Past serologies: [facility] panel 08/2019---labs reveal positive anti-NFL PLAYER antibody which is likely a false positive due to negative ASHLEY. ?? RF neg but has a possible family hx of psoriatic arthritis (father) so if she develops psoriasis diagnosis will change to psoriatic arthritis. Rt hand US 09/2019 showed: ??F/u 1 month. Assessment & Plan (06/09/2021 8:29 AM BEAM DYER RECESSED VAT): Images from the original note were not [...] Past serologies: [facility] panel 08/2019---labs reveal positive anti-NFL PLAYER antibody which is likely a false positive due to negative ASHLEY. ?? RF neg but has a possible family hx of psoriatic arthritis (father) so if she develops psoriasis diagnosis will change to psoriatic arthritis. Rt hand US 09/2019 showed: ??F/u 1 month. Assessment & Plan (05/05/2021 10:11 PM BEAM DYER RECESSED VAT): Images from the original note were not [...] Past serologies: [facility] panel 08/2019---labs reveal positive anti-NFL PLAYER antibody which is likely a false positive due to negative ASHLEY. ?? RF neg but has a possible family hx of psoriatic arthritis (father) so if she develops psoriasis diagnosis will change to psoriatic arthritis. Rt hand US 09/2019 showed: ??F/u 1 month. Assessment & Plan (03/31/2021 9:24 AM BEAM DYER RECESSED VAT): Images from the original note were not [...] Past serologies: [facility] panel 08/2019---labs reveal positive anti-NFL PLAYER antibody which is likely a false positive [...] Past serologies: [facility] panel 08/2019---labs reveal positive anti-NFL PLAYER antibody which is likely a false positive [...] Past serologies: [facility] panel 08/2019---labs reveal positive anti-NFL PLAYER antibody which is likely a false positive [...] Past serologies: [facility] panel 08/2019---labs reveal positive anti-NFL PLAYER antibody which is likely a false positive [...] Past serologies: [facility] panel 08/2019---labs reveal positive anti-NFL PLAYER antibody which is likely a false positive due to negative ASHLEY. ?? RF neg but has a possible family hx of psoriatic arthritis (father) so if she develops psoriasis diagnosis will change to psoriatic arthritis. Rt hand US 09/2019 showed: ?? Assessment & Plan (06/03/2020 5:27 PM BEAM DYER RECESSED VAT): Images from the original note were not [...] Past serologies: [facility] panel 08/2019---labs reveal positive anti-NFL PLAYER antibody which is likely a false positive due to negative ASHLEY. ?? RF neg but has a possible family hx of psoriatic arthritis (father) so if she develops psoriasis diagnosis will change to psoriatic arthritis. Rt hand US 09/2019 showed: ?? Assessment & Plan (03/25/2020 3:01 PM BEAM DYER RECESSED VAT): Images from the original note were not [...] Past serologies: [facility] panel 08/2019---labs reveal positive anti-NFL PLAYER antibody which is likely a false positive due to negative ASHLEY. ?? RF neg but has a possible family hx of psoriatic arthritis (father) so if she develops psoriasis diagnosis will change to psoriatic arthritis. Rt hand US 09/2019 showed: ?? Assessment & Plan (03/24/2020 7:29 AM BEAM DYER RECESSED VAT): Images from the original note were not included. [place] ai Wants to go back to sq orencia, gave pt 1 mo of samples and will start approval. Can't come in for iv orencia, her dad is on hospice. Increase imuran to 100mg bid, check cbc/cmp in 2 weeks and f/u in 1month. Past serologies: [facility] panel 08/2019---labs reveal positive anti-NFL PLAYER antibody which is likely a false positive [...] Past serologies: [facility] panel 08/2019---labs reveal positive anti-NFL PLAYER antibody which is likely a false positive [...] Past serologies: [facility] panel 08/2019---labs reveal positive anti-NFL PLAYER antibody which is likely a false positive [...] every day. [facility] panel 08/2019---labs reveal positive anti-NFL PLAYER antibody which is likely a false positive due to negative ASHLEY. ??Otherwise labs look good. ??No evidence of a new autoimmune connective tissue disease. Cont orencia sq and imuran 100mg po qhs. Sutton better on iv orencia, will change from [...] since resolved. [facility] panel 08/2019---labs reveal positive anti-NFL PLAYER antibody which is likely a false positive [...] of orencia. [facility] panel 08/2019---labs reveal positive anti-NFL PLAYER antibody which is likely a false positive [...] of orencia. [facility] panel 08/2019---labs reveal positive anti-NFL PLAYER antibody which is likely a false positive [...] ?? Assessment & Plan (04/23/2019 1:46 PM BEAM DYER RECESSED VAT): High cdai. On orencia IV but has [...] citrate. Assessment & Plan (06/03/2020 2:56 PM BEAM DYER RECESSED VAT): Multiple kidney stones for over 10 yrs, [...] on file Legal Sex Female 9:24 PM BEAM DYER RECESSED VAT Gender Identity Female 08/14/2022 11:32 AM CDT [...] HEPATITIS C AB Routine 06/29/2015 2:43 PM BEAM DYER RECESSED VAT from Last 3 Months or Most Recently Relevant to Health Maintenance Results * ThinPrep Pap with HPV (12/24/2018 3:41 PM CDT) 12/24/2018 3:41 PM CDT 12/25/2018 8:54 AM CDT Narrative [facility] - 12/26/2018 2:53 PM CDT [facility] Department of Pathology [address] [place] [id number] Final Report with Addendum Patient Name: ??JULIAN SAUER Address: ??[address] [place] [address], ?? [place], [place] ?? Gender: ??F : ??1975 (Age: 43) Service: ??Laboratory Location: ??Lab Hospital #: ??[id number] Patient Type: ?? Ref Lab Taken: ??12/24/2018 Received: ??12/25/2018 Accessioned:: ??12/26/2018 Reported: ??12/26/2018 Physician(s): Curtis Oseguera M.D. [facility] Diagnosis: Source of Specimen: ? SCREENING [...] determined by the Surgical Pathology Department at [facility] as part of an ongoing quality control inspector program and in compliance with federally mandated [...] determined by the Surgical Pathology Department [facility]. ??It has not been cleared or approved by the U. S. Food and Drug Administration. us Curtis Oseguera MD LAB CYTOLOGY ORDERABLES Final Result [address] [phone] * Serum Hepatitis C ab (06/29/2015 2:43 PM BEAM DYER RECESSED VAT) HCV ab Non-Reacti ve Non-Reacti ve HISTORICAL RESULTS Serum 06/29/2015 2:43 PM BEAM DYER RECESSED VAT us Miriam VALLE LAB BLOOD ORDERAB LES Final Result HISTORICAL RESULTS from Last 3 Months or Most Recently Relevant to Health Maintenance [place] [facility] Care Teams Molding Machine Tender Relationship Specialty Start Date End Date Bhupinder Tobias MD [address] [facility] [address] [place] [address] PCP - General Internal Medicine 06/03/20 Cash Woodruff III, MD [address] [facility] [address] [place] [address] Rheumatology 04/12/17 Jorge Aguiar MD [address] [facility] [address] [place] [address] Consulting Physician Urology 11/10/20 Khoa Arias MD [address] [facility] [address] [place] [address] Referring Physician Gastroenterology 03/20/21
--- OUTSIDE RECORDS SUMMARY | 2024-05-14 08:28 | XMS_ITS ---
Author Organization [facility] As [facility] Address [facility] [facility] [address] [place] [address] Care Team Providers Care President & [employer] Name Role Phone Jose Zhang DO Primary Care Provider UnavailAlix Sher Unavailable [phone] Mario Diaz Unavailable [phone] REASON FOR VISIT N/s First Therapy Social History Sex Assigned At : Social History Observation Description Sex Assigned At Female Encounters Encounter Location Date Provider Diagnosis [facility] [address] [facility] [address] [place] [address] 05/04/2024 Mario Diaz Plan Of Treatment Next Appt Details Provider Name:Alix goldman, 06/12/2024 02:45:00 PM, [address], [facility] [address], [place], [address], Progress Notes * JULIAN SAUERDOB:1975 ( 48 yo F)Acc No.[id number]:05/04/2024 Patient:?JULIAN SAUER :1975???Age:48 Y???Sex:Female [address] [place], [address] * true * Date:? Generated for Tree regalado/Lissethg/eTransmitting on:?05/14/2024 08:27 AM PATIENT MANAGER
--- OUTSIDE RECORDS SUMMARY | 2024-05-14 08:28 | XMS_ITS ---
Author Organization [facility] Address [facility] [facility] [address] [address] Care Team Providers Care Ground Wood Supervisor Name Role Phone Jose Zhang DO Primary Care Provider UnavailAlix Sher Unavailable [phone] Mario Diaz Unavailable [phone] Social History Sex Assigned At : Social History Observation Description Sex Assigned At Female Encounters Encounter Location Date Provider Diagnosis [facility] [employer] [place] [id number] [facility] [address] [address] 05/04/2024 Mario Diaz Plan Of Treatment Next Appt Details Provider Name:Alix goldman, 06/12/2024 02:45:00 PM, [facility], [facility] [address], [place], [address], Progress Notes * JULIAN SAUERDOB:1975 ( 48 yo F)Acc No.[id number]:05/04/2024 Patient:?JULIAN SAUER Provider:?Mario Diaz LCPC :1975???Age:48 Y???Sex:Female D ate:05/04/2024 Address:[address] [facility] Pcp:Jose Zhang DO Data: * Chief Complaints: * ??? * Medical History:? * Vitals:? Assessment: Plan: * Treatment: * Procedure Codes:?NSTHR NO SH OW THERAPY * Billing Information: * Visit Code:? * Procedure Codes:? NSTHR NO SHOW THERAPY. * Electronic signature of Francois Diaz LCPC on 05/14/2024 at 08:28 AM BULK SYSTEM OPERATOR Sign off status: Pending Signatures: No Ad Hoc Signature Added * Provider:Katlyn Diaz LCPC Date:? Generated for Tree regalado/Caryl/Dayna on:?05/14/2024 08:28 AM BULK SYSTEM OPERATOR
--- OUTSIDE RECORDS SUMMARY | 2024-05-14 08:28 | XMS_ITS | Clinical Summary ---
Author Organization [id number] Address [address] [place] [address] Phone Care Team Providers Care Machine Bobbin Winder Name Role Phone Kumar CARRILLO MD, John J. Unavailable [phone] Bhupinder Tobias MD Primary Care Provider [phone] Jorge Aguiar MD Unavailable [phone] Khoa Arias MD Unavailable [phone] Allergies No known active allergies Medications SUMAtriptan [...] (08/30/2021): Added automatically from request for surgery [id number] Abdominal pain 03/31/2021 Assessment & Plan (06/28/2021 10:08 AM [facility]): Recently dx with mild pancreatitis. Needs lipase/amylase rechecked. Still has some upper abd pain. Advised pt to f/u with GI also. Assessment & Plan (06/19/2021 8:52 AM [facility] [employer] [facility]): Had abd pain early this month, check amyl/lip and ua. Pain has resolved. Assessment & Plan (05/05/2021 10:13 PM [facility]): Having abd pain, bloating, constipation. On meds for IBS and also using suppositories to have BM. Incidental findings of mesenteric fat stranding (adenitis or panniculitis) on abd CT. Awaiting further eval by Dr. Arias. Assessment & Plan (03/31/2021 8:44 AM [facility]): Elevated lipase. Imuran stopped. Pt advised to [...] 04/23/2019 Assessment & Plan (03/24/2020 7:29 AM [facility]): Normal serum immunoglobulins. Assessment & Plan (01/21/2020 [...] immunoglobulins. Assessment & Plan (04/23/2019 1:46 PM [facility]): Check serum immunoglobulins. Osteoporosis without current pathological fractu re 09/18/2018 Assessment & Plan (08/10/2021 8:09 AM CDT): bds checked by pcp in past, is taking ca and vit d and pcp checked vit D and PTH per pt was wnl. Her pcp started her on alendronate 70mg po qweek. Taking ca + vit d 1200mg qd. Assessment & Plan (06/15/2021 10:46 AM [facility] [employer] [facility]): bds checked by pcp in past, is taking ca and vit d and pcp checked vit D and PTH per pt was wnl. Her pcp started her on alendronate 70mg po qweek. Taking ca + vit d 1200mg qd. Assessment & Plan (06/09/2021 8:30 AM [facility] [employer] [facility]): bds checked by pcp in past, is taking ca and vit d and pcp checked vit D and PTH per pt was wnl. Her pcp started her on alendronate 70mg po qweek. Taking ca + vit d 1200mg qd. Assessment & Plan (05/04/2021 8:19 AM [facility] [employer] [facility]): bds checked by pcp in past, is [...] qd. Assessment & Plan (06/03/2020 7:38 AM [facility] [employer] [facility]): bds checked by pcp in past, is taking ca and vit d and pcp checked vit D and PTH per pt was wnl. Her pcp started her on alendronate 70mg po qweek. Taking ca + vit d 1200mg qd. Assessment & Plan (03/25/2020 8:34 AM [facility] [employer] [facility]): bds checked by pcp in past, is taking ca and vit d and pcp checked vit D and PTH per pt was wnl. Her pcp started her on alendronate 70mg po qweek. Taking ca + vit d 1200mg qd. Assessment & Plan (03/24/2020 7:29 AM [facility] [employer] [facility]): bds checked by pcp in past, is [...] qd. Assessment & Plan (04/20/2019 4:56 PM [facility]): bds checked by pcp in past, is [...] pcp. Assessment & Plan (06/03/2020 7:37 AM ASS[facility] [employer] [facility]): Was advised in past to get chest CT to r/o aortic aneurysm, to discuss with pcp. Assessment & Plan (03/25/2020 8:33 AM ASS[facility] [employer] [facility]): Was advised in past to get chest CT to r/o aortic aneurysm, to discuss with pcp. Assessment & Plan (03/24/2020 7:29 AM ASS[facility] [employer] [facility]): Was advised in past to get chest [...] pcp. Assessment & Plan (04/20/2019 4:57 PM [facility]): Advised to get chest CT to r/o aortic aneurysm, to discuss with pcp. Assessment & Plan (10/31/2018 7:38 AM CDT): Advised to get chest CT to r/o aortic aneurysm, to discuss with pcp. Encounter for long-term (current) use of medicat ions 01/31/2017 Assessment & Plan (05/28/2022 8:07 AM [facility] [employer] [facility]): Quant gold neg 12/2019 Hep B and [...] showed osteoporosis [facility] 08/2019---[facility] labs reveal positive anti-DRAWING OPERATOR antibody which is likely a false positive due to negative ASHLEY. Her father had psoriasis, pt changed from ra to PsA on 03/25/2020. ?? Assessment & Plan (02/26/2022 8:16 AM ASS[facility]): Quant gold neg 12/2019 Hep B and [...] showed osteoporosis [facility] 08/2019---[facility] labs reveal positive anti-DRAWING OPERATOR antibody which is likely a false [...] showed osteoporosis [facility] 08/2019---[facility] labs reveal positive anti-DRAWING OPERATOR antibody which is likely a false [...] showed osteoporosis [facility] 08/2019---[facility] labs reveal positive anti-DRAWING OPERATOR antibody which is likely a false [...] showed osteoporosis [facility] 08/2019---[facility] labs reveal positive anti-DRAWING OPERATOR antibody which is likely a false [...] showed osteoporosis [facility] 08/2019---[facility] labs reveal positive anti-DRAWING OPERATOR antibody which is likely a false positive due to negative ASHLEY. Her father had psoriasis, pt changed from ra to PsA on 03/25/2020. ?? Assessment & Plan (06/28/2021 8:44 AM ASS[facility] [employer] [facility]): Quant gold neg 12/2019 Hep B and [...] showed osteoporosis [facility] 08/2019---[facility] labs reveal positive anti-DRAWING OPERATOR antibody which is likely a false positive due to negative ASHLEY. Her father had psoriasis, pt changed from ra to PsA on 03/25/2020. ?? Assessment & Plan (06/15/2021 10:44 AM ASS[facility]): Quant gold neg 12/2019 Hep B and [...] showed osteoporosis [facility] 08/2019---[facility] labs reveal positive anti-DRAWING OPERATOR antibody which is likely a false positive due to negative ASHLEY. Her father had psoriasis, pt changed from ra to PsA on 03/25/2020. ?? Assessment & Plan (06/09/2021 10:15 AM ASS[facility] [employer] [facility]): Quant gold neg 12/2019 Hep B and [...] showed osteoporosis [facility] 08/2019---[facility] labs reveal positive anti-DRAWING OPERATOR antibody which is likely a false positive due to negative ASHLEY. Her father had psoriasis, pt changed from ra to PsA on 03/25/2020. ?? Assessment & Plan (06/09/2021 8:29 AM ASSOC[facility]): Quant gold neg 12/2019 Hep B and [...] showed osteoporosis [facility] 08/2019---[facility] labs reveal positive anti-DRAWING OPERATOR antibody which is likely a false positive due to negative ASHLEY. Her father had psoriasis, pt changed from ra to PsA on 03/25/2020. ?? Assessment & Plan (05/04/2021 8:19 AM ASSOC[facility]): Quant gold neg 12/2019 Hep B and [...] showed osteoporosis [facility] 08/2019---[facility] labs reveal positive anti-DRAWING OPERATOR antibody which is likely a false positive due to negative ASHLEY. Her father had psoriasis, pt changed from ra to PsA on 03/25/2020. ?? Assessment & Plan (03/31/2021 9:20 AM ASSOC[facility]): Quant gold neg 12/2019 Hep B and [...] showed osteoporosis [facility] 08/2019---[facility] labs reveal positive anti-DRAWING OPERATOR antibody which is likely a false [...] showed osteoporosis [facility] 08/2019---[facility] labs reveal positive anti-DRAWING OPERATOR antibody which is likely a false [...] showed osteoporosis [facility] 08/2019---[facility] labs reveal positive anti-DRAWING OPERATOR antibody which is likely a false [...] showed osteoporosis [facility] 08/2019---[facility] labs reveal positive anti-DRAWING OPERATOR antibody which is likely a false [...] showed osteoporosis [facility] 08/2019---[facility] labs reveal positive anti-DRAWING OPERATOR antibody which is likely a false positive due to negative ASHLEY. Her father had psoriasis, pt changed from ra to PsA on 03/25/2020. ?? Assessment & Plan (06/03/2020 2:56 PM ASSOC[facility]): Quant gold neg 12/2019 Hep B and [...] showed osteoporosis [facility] 08/2019---[facility] labs reveal positive anti-DRAWING OPERATOR antibody which is likely a false positive due to negative ASHLEY. Her father had psoriasis, pt changed from ra to PsA on 03/25/2020. ?? Assessment & Plan (03/25/2020 3:03 PM [facility]): Quant gold neg 12/2019 HLA B27 negative [...] showed osteoporosis [facility] 08/2019---[facility] labs reveal positive anti-DRAWING OPERATOR antibody which is likely a false positive due to negative ASHLEY. Her father had psoriasis, pt changed from ra to PsA on 03/25/2020. ?? Assessment & Plan (03/24/2020 7:28 AM ASSOC[facility]OM[facility]): Quant gold neg 12/2019 HLA B27 negative [...] showed osteoporosis [facility] 08/2019---[facility] labs reveal positive anti-DRAWING OPERATOR antibody which is likely a false [...] showed osteoporosis [facility] 08/2019---[facility] labs reveal positive anti-DRAWING OPERATOR antibody which is likely a false [...] showed osteoporosis [facility] 08/2019---[facility] labs reveal positive anti-DRAWING OPERATOR antibody which is likely a false [...] showed osteoporosis [facility] 08/2019---[facility] labs reveal positive anti-DRAWING OPERATOR antibody which is likely a false [...] showed osteoporosis [facility] 08/2019---[facility] labs reveal positive anti-DRAWING OPERATOR antibody which is likely a false [...] showed osteoporosis [facility] 08/2019---[facility] labs reveal positive anti-DRAWING OPERATOR antibody which is likely a false [...] ?? Assessment & Plan (04/20/2019 4:59 PM [facility]): Quant gold neg 10/2018. TPMT nl 17 [...] 01/31/2017 Assessment & Plan (05/28/2022 8:05 AM ASSOC[facility]): Images from the original note were not included. Had orencia infusion 05/02/2022. Continue orencia monotherapy. Off arava due to lipase elevation. Seeing gi at [facility] now. [place] and egd utd and nl in past year per pt. Had a nl pancreatic US recently with gi. Past serologies: [facility] panel 08/2019---labs reveal positive anti-DRAWING OPERATOR antibody which is likely a false positive due to negative ASHLEY. ?? RF neg but has a possible family hx of psoriatic arthritis (father) so if she develops psoriasis diagnosis will change to psoriatic arthritis. Rt hand US 09/2019 showed: ??F/u 1 month. Assessment & Plan (02/26/2022 12:12 PM [facility]): Images from the original note were not included. High cdai. Her orencia is scheduled tomorrow. Continue orencia monotherapy. Off arava due to lipase elevation. Seeing gi at [facility] now. [place] and egd utd and nl in past year per pt. Had a nl pancreatic US recently with gi. She could be flaring up since her orencia is due tomorrow, overall she still feels that it is helping her joints. Past serologies: [facility] panel 08/2019---labs reveal positive anti-DRAWING OPERATOR antibody which is likely a false [...] no complications or infections. Seeing gi at [facility] now for her elevated lipase. [place] and egd utd and nl in past year per pt. If labs stable will restart low dose arava 10mg po every day. To stay off orencia until recovered from rt knee surgery. Past serologies: [facility] panel 08/2019---labs reveal positive anti-DRAWING OPERATOR antibody which is likely a false [...] orencia is scheduled tomorrow. Seeing gi at [facility] now. [place] and egd utd and nl in past year per pt. Due to burden of dz will give her a short course of oral prednisone. Discussed risks and se of systemic steroids. Past serologies: [facility] panel 08/2019---labs reveal positive anti-DRAWING OPERATOR antibody which is likely a false [...] orencia is scheduled tomorrow. Seeing gi at [facility] now. [place] and egd utd and nl in past year per pt. Due to burden of dz will give her a short course of oral prednisone. Discussed risks and se of systemic steroids. Past serologies: [facility] panel 08/2019---labs reveal positive anti-DRAWING OPERATOR antibody which is likely a false [...] gi dr arias for her pancreatitis . [place] and egd utd and nl in past year per pt. Seen with dr woodruff today. Past serologies: [facility] panel 08/2019---labs reveal positive anti-DRAWING OPERATOR antibody which is likely a false positive due to negative ASHLEY. ?? RF neg but has a possible family hx of psoriatic arthritis (father) so if she develops psoriasis diagnosis will change to psoriatic arthritis. Rt hand US 09/2019 showed: ??F/u 1 month. Assessment & Plan (06/28/2021 10:22 AM ASSOC[facility]): Images from the original note were not [...] Past serologies: [facility] panel 08/2019---labs reveal positive anti-DRAWING OPERATOR antibody which is likely a false positive due to negative ASHLEY. ?? RF neg but has a possible family hx of psoriatic arthritis (father) so if she develops psoriasis diagnosis will change to psoriatic arthritis. Rt hand US 09/2019 showed: ??F/u 1 month. Assessment & Plan (06/15/2021 10:46 AM ASSOC[facility]): Images from the original note were not included. On arava 10mg po daily and continues on IV Orencia. Will check labs and try going to 20mg of the leflunomide. Seen with dr woorduff today. Is following up with GI Dr. Arias regarding abd pain and constipation, and recent incidental findings of mesenteric fat stranding, possible adenitis or panniculitis on abd CT (done for kidney stones). Past serologies: [facility] panel 08/2019---labs reveal positive anti-DRAWING OPERATOR antibody which is likely a false positive due to negative ASHLEY. ?? RF neg but has a possible family hx of psoriatic arthritis (father) so if she develops psoriasis diagnosis will change to psoriatic arthritis. Rt hand US 09/2019 showed: ??F/u 1 month. Assessment & Plan (06/09/2021 10:16 AM ASSOC[facility]): Images from the original note were not [...] Past serologies: [facility] panel 08/2019---labs reveal positive anti-DRAWING OPERATOR antibody which is likely a false positive due to negative ASHLEY. ?? RF neg but has a possible family hx of psoriatic arthritis (father) so if she develops psoriasis diagnosis will change to psoriatic arthritis. Rt hand US 09/2019 showed: ??F/u 1 month. Assessment & Plan (06/09/2021 8:29 AM ASSOC[facility]OM[facility]): Images from the original note were not [...] Past serologies: [facility] panel 08/2019---labs reveal positive anti-DRAWING OPERATOR antibody which is likely a false positive due to negative ASHLEY. ?? RF neg but has a possible family hx of psoriatic arthritis (father) so if she develops psoriasis diagnosis will change to psoriatic arthritis. Rt hand US 09/2019 showed: ??F/u 1 month. Assessment & Plan (05/05/2021 10:11 PM ASSOC[facility]): Images from the original note were not [...] Past serologies: [facility] panel 08/2019---labs reveal positive anti-DRAWING OPERATOR antibody which is likely a false positive due to negative ASHLEY. ?? RF neg but has a possible family hx of psoriatic arthritis (father) so if she develops psoriasis diagnosis will change to psoriatic arthritis. Rt hand US 09/2019 showed: ??F/u 1 month. Assessment & Plan (03/31/2021 9:24 AM ASSOC[facility]OM[facility]): Images from the original note were not [...] Past serologies: [facility] panel 08/2019---labs reveal positive anti-DRAWING OPERATOR antibody which is likely a false [...] Past serologies: [facility] panel 08/2019---labs reveal positive anti-DRAWING OPERATOR antibody which is likely a false [...] Past serologies: [facility] panel 08/2019---labs reveal positive anti-DRAWING OPERATOR antibody which is likely a false [...] Past serologies: [facility] panel 08/2019---labs reveal positive anti-DRAWING OPERATOR antibody which is likely a false [...] Past serologies: [facility] panel 08/2019---labs reveal positive anti-DRAWING OPERATOR antibody which is likely a false positive due to negative ASHLEY. ?? RF neg but has a possible family hx of psoriatic arthritis (father) so if she develops psoriasis diagnosis will change to psoriatic arthritis. Rt hand US 09/2019 showed: ?? Assessment & Plan (06/03/2020 5:27 PM ASSOC[facility]OM[facility]): Images from the original note were not [...] Past serologies: [facility] panel 08/2019---labs reveal positive anti-DRAWING OPERATOR antibody which is likely a false positive due to negative ASHLEY. ?? RF neg but has a possible family hx of psoriatic arthritis (father) so if she develops psoriasis diagnosis will change to psoriatic arthritis. Rt hand US 09/2019 showed: ?? Assessment & Plan (03/25/2020 3:01 PM ASSOCI[facility]OMEN): Images from the original note were not [...] Past serologies: [facility] panel 08/2019---labs reveal positive anti-DRAWING OPERATOR antibody which is likely a false positive due to negative ASHLEY. ?? RF neg but has a possible family hx of psoriatic arthritis (father) so if she develops psoriasis diagnosis will change to psoriatic arthritis. Rt hand US 09/2019 showed: ?? Assessment & Plan (03/24/2020 7:29 AM ASSOCI[facility] [employer] [facility]OM[facility]): Images from the original note were not included. [place] ai Wants to go back to sq orencia, gave pt 1 mo of samples and will start approval. Can't come in for iv orencia, her dad is on hospice. Increase imuran to 100mg bid, check cbc/cmp in 2 weeks and f/u in 1month. Past serologies: [facility] panel 08/2019---labs reveal positive anti-DRAWING OPERATOR antibody which is likely a false [...] Past serologies: [facility] panel 08/2019---labs reveal positive anti-DRAWING OPERATOR antibody which is likely a false [...] Past serologies: [facility] panel 08/2019---labs reveal positive anti-DRAWING OPERATOR antibody which is likely a false [...] every day. [facility] panel 08/2019---labs reveal positive anti-DRAWING OPERATOR antibody which is likely a false positive due to negative ASHLEY. ??Otherwise labs look good. ??No evidence of a new autoimmune connective tissue disease. Cont orencia sq and imuran 100mg po qhs. [place] better on iv orencia, will change from [...] since resolved. [facility] panel 08/2019---labs reveal positive anti-DRAWING OPERATOR antibody which is likely a false [...] of orencia. [facility] panel 08/2019---labs reveal positive anti-DRAWING OPERATOR antibody which is likely a false [...] of orencia. [facility] panel 08/2019---labs reveal positive anti-DRAWING OPERATOR antibody which is likely a false [...] ?? Assessment & Plan (04/23/2019 1:46 PM ASSOC[facility]): High cdai. On orencia IV but has [...] citrate. Assessment & Plan (06/03/2020 2:56 PM ASSOC[facility]OM[facility]): Multiple kidney stones for over 10 yrs, [...] Sister 2 Michelle Abdirahman Arthritis Maternal Grandfather [place] Foster Cancer Maternal Grandfather [place] Foster Arthritis Maternal Grandmother Ondina Foster Cancer Maternal Grandmother Ondina Foster Memory loss Maternal Grandmother Ondina Foster Arthritis Mother Aggei White Mental illness Mother Aggie White Cancer [...] file Legal Sex Female 9:24 PM [facility] Gender Identity Female 08/14/2022 11:32 AM CDT [...] HEPATITIS C AB Routine 06/29/2015 2:43 PM [facility] from Last 3 Months or Most Recently Relevant to Health Maintenance Results * ThinPrep Pap with HPV (12/24/2018 3:41 PM CDT) 12/24/2018 3:41 PM CDT 12/25/2018 8:54 AM CDT Narrative [facility] - 12/26/2018 2:53 PM CDT [facility] Department of Pathology [address] [place] [id number] Final Report with Addendum Patient Name: ??CAMACHOJULIAN Address: ??[address] [place] [address], ?? [place], [place] [address] Gender: ??F : ??1975 (Age: 43) Service: ??Laboratory Location: ??Lab Hospital #: ??[id number] Patient Type: ?? Ref Lab Taken: ??12/24/2018 Received: ??12/25/2018 Accessioned:: ??12/26/2018 Reported: ??12/26/2018 Physician(s): Curtis Oseguera M.D. [facility] Diagnosis: Source of Specimen: ? SCREENING [...] determined by the Surgical Pathology Department at [facility] as part of an ongoing air quality instrument specialist program and in compliance with federally mandated [...] characteristics determined by the Surgical Pathology Department [facility]. ??It has not been cleared or approved by the U. S. Food and Drug Administration. Curtis Oseguera MD LAB CYTOLOGY ORDERABLES Final Result [facility] [address] [place], [place] [id number] [place] [address] * Serum Hepatitis C ab (06/29/2015 2:43 PM [facility]) HCV ab Non-Reacti ve Non-Reacti ve HISTORICAL RESULTS Serum 06/29/2015 2:43 PM [facility] Miriam VALLE LAB BLOOD ORDERAB LES Final Result HISTORICAL RESULTS from Last 3 Months or Most Recently Relevant to Health Maintenance [place] [employer] Care Teams Machine Bobbin Winder Relationship Specialty Start Date End Date Bhupinder Tobias MD [address] [facility] [address] [place] [address] PCP - General Internal Medicine 06/03/20 Cash Woodruff III, MD [address] [facility] [address] [place] [address] Rheumatology 04/12/17 Jorge Aguiar MD [address] [facility] [address] [facility] [address] [place] [address] Consulting Physician Urology 11/10/20 Khoa Arias MD [address] [facility] [address] [place] [address] Referring Physician Gastroenterology 03/20/21
--- OUTSIDE RECORDS SUMMARY | 2024-05-14 08:34 | XMS_ITS | Continuity of Care Document ---
Author Organization [facility] Address [address] [place] [address] Phone Care Team Providers Care Supervisor Forming Department Name Role Phone Amadeo Arias MD Unavailable [...] Copied on Encounter OFFICE/OUTPAT IENT VISIT EST [facility], [address] [address], [place], [address], tel:[phone] [facility] Patellofemoral instability, rightOther specified sprain of right wrist, initial encounter 0 6 Hugo Childs. [address], [place], [place], [id number] . tel: [phone] [facility], [address] [facility] [address], [place], [address], [place] tel:[phone] [facility] Acute bilateral low back pain without sciaticaLeft hip painArthralgia of right hipPatellofemo ral instability, leftPatellofem oral instability, right 6 Hugo Childs. [address] [facility] [address], [place], [place], [id number] . tel: [phone] OFFICE CONSULTATION [facility], [address] [facility] [address], [place], [address], tel:[phone] [facility] [place] Patellofemoral instability, rightPatellofe moral instability, leftArthralgia of right hipLeft hip painAcute bilateral low back pain without sciatica 201 6 Hugo Childs. [address], [place], [place], [id number] . tel: [phone] Referring Provider: Michelle De La Torre[address], [place], [address] . tel:[phone] Family History Family Member Type Diagnosis Age At Onset Sister Problem (finding) Alive and well Payers Payer name Insurance type Covered alliance party ID Authoriza tion(s) [facility] Choice/Choice Plus E2 [id number] Social History Type Description Quantity Date Captured [...]
== END 2024-05-09 11:06 | disposition home or self-care (01) ==
PROVIDERS: Emergency Provider Emergency Medicine; PCP Internal Medicine
DX: B34.9 Viral infection, unspecified (principal); R10.9 Unspecified abdominal pain; E67.3 Hypervitaminosis D; K58.1 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 syndrome with constipation; L40.9 Psoriasis, unspecified; M06.9 Rheumatoid arthritis, unspecified; M17.0 Bilateral primary osteoarthritis of knee; M47.816 Spondylosis without myelopathy or radiculopathy, lumbar region; M81.0 Age-related osteoporosis without current pathological fracture; G89.4 Chronic pain syndrome; F41.1 Generalized anxiety disorder; Q79.60 Ehlers-Danlos syndrome, unspecified; Z87.440 Personal history of urinary (tract) infections; Z87.11 Personal history of peptic ulcer disease; Z87.01 Personal history of pneumonia (recurrent); Z87.442 Personal history of urinary calculi; Z87.891 Personal history of nicotine dependence; Z90.710 Acquired absence of both cervix and uterus; Z79.899 Other long term (current) drug therapy; K44.9 Diaphragmatic hernia without obstruction or gangrene
CPT/HCPCS: 36415; 74176; 80053; 81003; 85025; 85610; 85730; 96361; 96374; 96375; 99284; J1171; J2405; J7030

== ENCOUNTER 2024-05-21 01:46 | Day surgery (SDC) | payer BC, SELFPAY ==
[2024-05-15 10:23] VITALS: BMI 32.3
--- NOTE | 2024-05-15 10:30 | PC.NURSE ---
Report to the Outpatient Waiting Room, entrance under the green pavilion located off [facility], at time _0600_ on date _06-25-3003_. Planned Procedure Time: _0730_.? Time changes happen often and if your time is changed the preop area will call you the afternoon before. - You and your visitor will be asked to self-screen and do not enter if you have any COVID symptoms. Please call surgeon if you need to reschedule. - A mask is optional within the hospital at this time. Patients may have clear liquids (water, carbonated beverages, clear teas, apple juice) until 3 hours prior to surgery with a maximum of 20 ounces. - No food from midnight until time of surgery and no smoking. This includes no chewing gum, candy or mints. Take only the following medications with a SIP of water on the morning of surgery: ___Propanolol, Bupropion and if needed Alprazolam____ DO NOT STOP ANY OF YOUR OTHER PRESCRIPTION MEDICATIONS PRIOR TO SURGERY EXCEPT THE FOLLOWING Medications to discontinue per physician ___Vitamins Date to take last hwud__[id number] Please no make-up, nail burmese, hairspray, perfume, deodorant, or body powder the day of surgery.? No jewelry (including any body piercings) or valuables the day of surgery, leave them at home.? Please take a shower or bath the night before, or the morning of, surgery with an antibacterial soap.? Wear comfortable, loose fitting clothing.? - Jewelry must be removed prior to entering the operating room.? Rings and piercings that are not removed may be cut off. - The hospital will not accept responsibility for valuables.? - Please leave all valuables, including medications, at home the day of surgery. If you are going home after surgery, a licensed taxi truck driver must drive you home.? - NO public transportation without another adult if you receive anesthesia. - We recommend that an adult stay with you for 24 hours following discharge. - We also recommend that you do not drive, make important decision, drink alcoholic beverages, or take any drugs that were not prescribed by your health care provider for at least 24 hours after your discharge time. Follow any additional instructions given to you from your surgeon. Telephone instructions given to __Ann___and asked if any additional questions and then verbalized understanding. Patient advised to call surgeon office or pre surgery nurse liaison [phone] if any additional questions.
[2024-05-21] VITALS (8 sets, daily range): BP systolic 118–145; BP diastolic 74–87; PULSE 83–98; RESP 14–18; TEMP 36–36.3; O2SAT 95–100
--- NOTE | ~2024-05-21 | XR_ITS ---
EXAMINATION: XR retrograde pyelo w/stent BI DATE: 05/21/2024 08:40 INDICATION: Right internal ureteral stent placement TECHNIQUE: Fluoroscopic images from a right stent placement are submitted for review. 70 seconds of f luoroscopy of fluoroscopy time. FINDINGS: There is a right double-J internal ureteral stent projecting in expected position, with proximal [place] loop at the level of the renal pelvis. Left retrograde pyelogram demonstrates normal opacification o f the left renal pelvis. No definite filling defect. IMPRESSION: 1. Right internal ureteral stent placement. Please refer to real-time procedural findings for detai ls. Reviewed, dictated and finalized at location A. BUILDER IMPRESSION: 1. Right internal ureteral stent placement. Please refer to real-time procedu ral findings for details.
--- OUTSIDE RECORDS SUMMARY | 2024-05-21 01:49 | XMS_ITS ---
Author Organization [facility] [place] [facility] Address [facility] [facility] [address] [place] [address] Care Team Providers Care Medical Appointment Scheduler Name Role Phone Jose Zhang DO Primary Care Provider UnavailAlix Sher Unavailable [phone] Mario Diaz Unavailable [phone] REASON FOR VISIT N/s First Therapy Social History Sex Assigned At : Social History Observation Description Sex Assigned At Female Encounters Encounter Location Date Provider Diagnosis [facility] [address] [facility] [address] [place] [address] 05/04/2024 Mario Diaz Plan Of Treatment Next Appt Details Provider Name:Alix goldman, 06/12/2024 02:45:00 PM, [address], [facility] [address], [place], [address], Progress Notes * JULIAN SAUERDOB:1975 ( 48 yo F)Acc No.[id number]:05/04/2024 Patient:?JULIAN SAUER :1975???Age:48 Y???Sex:Female Address:[address] [place], [address] * true * Date:? Generated for Omari sabine/Lissethg/eTransmitting on:?2024 01:49 AM PARTY CHIEF
--- OUTSIDE RECORDS SUMMARY | 2024-05-21 01:49 | XMS_ITS | Clinical Summary ---
Author Organization [facility] Address [address], [address] [address] Phone Care Team Providers Care Physician Coding Specialist Name Role Phone Marbin Fair DO Unavailable [phone] Amadeo Hernandez MD Unavailable Isaiah Quiros MD Primary Care Provider [phone] Medications cholestyramine (QUESTRAN) 4 GM Pack Take 1 Packet by mouth 2 times daily (with meals). 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
--- OUTSIDE RECORDS SUMMARY | 2024-05-21 01:49 | XMS_ITS ---
Author Organization [facility] Address [address] [place] [address] Care Team Providers Care Skidder Runner Name Role Phone NADINE WHITE Unavailable [phone] Allergies No Known Allergies Reason For Referral Reason EVAL AND TREAT Diagnosis 1 Chronic pain syndrom e (G89.4) Referral Organization [facility] Referring Provider First Name TERESA Ref[facility]erring Provider Speciality Physician Back Sizer Referred Provider Specialty Pain Medicin e Referral [...] Problem Status W/U Status Risk Notes Problem [id number] Chronic pain syndrome (G89.4) Active confirmed Vital Signs Height 66 in 02/25/2024 Weight 200 lbs 02/25/2024 BMI 32.28 kg/m2 02/25/2024 Patient Reported Normal Bloo d PressurePatient Reported Normal Temperature Encounters Encounter Location Date Provider Diagnosis [facility] [address] [place] [address] 02/25/2024 NADINE WHITE Chronic pain syndrom e [...] * Madalyn SAUERDOB:1975 ( 48 yo F)Acc No.[id number]:02/25/2024 Patient:Madalyn LUJAN Provider:?NADINE WHITE, DO :1975???Age:48 Y???Sex:Female D ate:02/25/2024 Phone: Address:[facility] [address] [facility] Subjective: * Chief Complaints: * ???General HealthPatient [...] Procedure Codes:?WU Garsia ant / CC Processing [id number] Office Visit, Est Pt., Level 3 Virtual Visit, Modifiers: 95 * Follow Up:?PCP, 2W * Billing Information: * Visit Code:? * Procedure Codes:? WU Errand Boy Delivery Business Plant / CC Processing Fee. [id number] Office Visit, Est Pt., Level 3 Virtual Visit. Modifiers: 95 * Sign off status: Completed true * Provider:?NADINE WHITE, DO Date:? 024 Generated for Tree regalado/Caryl/eTransmitting on:?2024 02:48 AM EST History and Physical Notes * [...]
--- OUTSIDE RECORDS SUMMARY | 2024-05-21 01:49 | XMS_ITS | Patient Health Record ---
Author Organization [facility] Address [address] [place] [address] Care Team Providers Care Form Press Operator Name Role Phone NADINE RUSH Unavailable [phone] Allergies No Known Allergies Reason For Referral Reason EVAL AND TREAT Diagnosis 1 Chronic pain syndrom e (G89.4) Referral Organization [facility] Referring Provider First Name TERESA Referring Provider Last Name KARL Referring Provider Speciality Physician Farm Contractor Referred Provider Specialty Pain Medicin e Referral Priority Routine Referral Appointment Date 02/25/2024 Social History Tobacco Use: Social History Observation Description Date Details (start date - stop date) Former Smoker NA - NA Tobacco Control (Standard) Question Answer Notes Tobacco use: Former smoker Problems Problem Type SNOMED Code ICD Code Onset Dates Problem Status W/U Status Risk Notes Problem [id number] Chronic pain syndrome (G89.4) Active confirmed Vital Signs Height 66 in 02/25/2024 Patient Reported Normal Blood Pressure Patient Reported Normal Temperature Weight 200 lbs 02/25/2024 Patient Reported Normal Blood Pressure Patient Reported Normal Temperature BMI 32.28 kg/m2 02/25/2024 Patient Reported Normal Blood Pressure Patient Reported Normal Temperature Encounters Encounter Location Date Provider Diagnosis [facility] [address] [place] [address] 02/25/2024 NADINE RUSH Chronic pain syndrom e [...] Coverage Start Date Coverage End Date [facility] [address] [place] [address] [phone] [id number] Madalyn Smith Self - patient is the insured Medical (General) History Medical History History ICD Code Meredith Camilla 05/23/1990 Obesity
--- OUTSIDE RECORDS SUMMARY | 2024-05-21 01:49 | XMS_ITS | Clinical Summary ---
Author Organization [facility] Address [address] [place] [address]. 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 Gender Identity Not on file Sexual Orientation Not on file Last Filed Vital Signs Vital Sign Reading Time Taken Comments Blood Pressure 108/79 03/01/2021 3:00 PM CLEANING MAID Pulse 79 03/01/2021 3:00 PM CLEANING MAID Temperature 36.2 ??C (97.2 ??F) 03/01/2021 1 2:34 PM CLEANING MAID Respiratory Rate 16 03/01/2021 3:00 PM CLEANING MAID Oxygen Saturation 98% 03/01/2021 3:00 PM CLEANING MAID Inhaled Oxygen Concentration - - Weight 86.1 kg (189 lb 13.1 oz) 021 12:34 PM CLEANING MAID Height 167.6 cm (5' 6 ) 03/01/2021 12:3 4 PM CLEANING MAID Body Mass Index 30.64 03/01/2021 12:34 PM CLEANING MAID Plan of Treatment Health Maintenance Due Date [...] 01/22/2020, 02/05/2018, 01/30/2017, Additional history exists Meningococcal B Vaccine Aged Out No l onger eligible based on patient's age to complete this topic Meningococcal Vaccine Aged Out No ector dulce eligible based on patient's age to complete this topic Pneumococcal Vaccine: Pediatrics (0 to 5 Years) and At-Risk Patients (6 to 64 Years) Aged Out No longer eligible based on patient's age to complete this topic RSV Immunizations Under 20 Months Aged Out No longer eligible based on patient's age to complete this topic Insurance [facility] Care Teams Water Project Manager Relationship Specialty Start Date End Date Bhupinder Tobias MD [address] [place] [address] PCP - General INTERNAL MEDICINE 03/01/21
--- OUTSIDE RECORDS SUMMARY | 2024-05-21 01:50 | XMS_ITS ---
Author Organization [facility] Address [facility] [address] [address] Care Team Providers Care Repair Department Supervisor Name Role Phone Jose Zhang DO Primary Care Provider UnavailAlix Sher Unavailable [phone] Mario Diaz Unavailable [phone] Social History Sex Assigned At : Social History Observation Description Sex Assigned At Female Encounters Encounter Location Date Provider Diagnosis [facility] [employer] [place] [address] [facility] [address] [address] 05/04/2024 Mario Diaz Plan Of Treatment Next Appt Details Provider Name:Alix goldman, 06/12/2024 02:45:00 PM, [facility] [address] IN[address] [facility] [address] [facility] [address], [place], [address], Progress Notes * JULIAN SAUERDOB:1975 ( 49 yo F)Acc No.[id number]:05/04/2024 Patient:?JULIAN SAUER Provider:?Mario Diaz LCPC :1975???Age:48 Y???Sex:Female D ate:05/04/2024 Address[address] [facility] Pcp:Jose Zhang DO Data: * Chief Complaints: * ??? * Medical History:? * Vitals:? Assessment: Plan: * Treatment: * Procedure Codes:?NSTHR NO SH OW THERAPY * Billing Information: * Visit Code:? * Procedure Codes:? NSTHR NO SHOW THERAPY. * Electronic signature of Francois Diaz LCPC on 2024 at 01:50 AM DRIVER'S LICENSE EXAMINER Sign off status: Pending Signatures: No Ad Hoc Signature Added * Provider:Katlyn Diaz LCPC Date:? Generated for Tree regalado/Caryl/Dayna on:?2024 01:50 AM DRIVER'S LICENSE EXAMINER
--- OUTSIDE RECORDS SUMMARY | 2024-05-21 01:50 | XMS_ITS | Clinical Summary ---
Author Organization [place] [id number] Address [address] [place] [address] Phone Care Team Providers Care Underwriting Technician Name Role Phone Kumar CARRILLO MD, John J. Unavailable [phone] Bhupinder Tobias MD Primary Care Provider [phone] Jorge Aguiar MD Unavailable [phone] Khoa Arias MD Unavailable [phone] Allergies No known active allergies Medications SUMAtriptan [...] (08/30/2021): Added automatically from request for surgery [id number] Abdominal pain 03/31/2021 Assessment & Plan (06/28/2021 10:08 AM GRAPHIC DESIGN INTERN): Recently dx with mild pancreatitis. Needs lipase/amylase rechecked. Still has some upper abd pain. Advised pt to f/u with GI also. Assessment & Plan (06/19/2021 8:52 AM GRAPHIC DESIGN INTERN): Had abd pain early this month, check amyl/lip and ua. Pain has resolved. Assessment & Plan (05/05/2021 10:13 PM GRAPHIC DESIGN INTERN): Having abd pain, bloating, constipation. On meds for IBS and also using suppositories to have BM. Incidental findings of mesenteric fat stranding (adenitis or panniculitis) on abd CT. Awaiting further eval by Dr. Arias. Assessment & Plan (03/31/2021 8:44 AM GRAPHIC DESIGN INTERN): Elevated lipase. Imuran stopped. Pt advised to [...] 04/23/2019 Assessment & Plan (03/24/2020 7:29 AM GRAPHIC DESIGN INTERN): Normal serum immunoglobulins. Assessment & Plan (01/21/2020 [...] immunoglobulins. Assessment & Plan (04/23/2019 1:46 PM GRAPHIC DESIGN INTERN): Check serum immunoglobulins. Osteoporosis without current pathological fractu re 09/18/2018 Assessment & Plan (08/10/2021 8:09 AM CDT): bds checked by pcp in past, is taking ca and vit d and pcp checked vit D and PTH per pt was wnl. Her pcp started her on alendronate 70mg po qweek. Taking ca + vit d 1200mg qd. Assessment & Plan (06/15/2021 10:46 AM GRAPHIC DESIGN INTERN): bds checked by pcp in past, is taking ca and vit d and pcp checked vit D and PTH per pt was wnl. Her pcp started her on alendronate 70mg po qweek. Taking ca + vit d 1200mg qd. Assessment & Plan (06/09/2021 8:30 AM GRAPHIC DESIGN INTERN): bds checked by pcp in past, is taking ca and vit d and pcp checked vit D and PTH per pt was wnl. Her pcp started her on alendronate 70mg po qweek. Taking ca + vit d 1200mg qd. Assessment & Plan (05/04/2021 8:19 AM GRAPHIC DESIGN INTERN): bds checked by pcp in past, is [...] qd. Assessment & Plan (06/03/2020 7:38 AM GRAPHIC DESIGN INTERN): bds checked by pcp in past, is taking ca and vit d and pcp checked vit D and PTH per pt was wnl. Her pcp started her on alendronate 70mg po qweek. Taking ca + vit d 1200mg qd. Assessment & Plan (03/25/2020 8:34 AM GRAPHIC DESIGN INTERN): bds checked by pcp in past, is taking ca and vit d and pcp checked vit D and PTH per pt was wnl. Her pcp started her on alendronate 70mg po qweek. Taking ca + vit d 1200mg qd. Assessment & Plan (03/24/2020 7:29 AM GRAPHIC DESIGN INTERN): bds checked by pcp in past, is [...] qd. Assessment & Plan (04/20/2019 4:56 PM GRAPHIC DESIGN INTERN): bds checked by pcp in past, is [...] pcp. Assessment & Plan (06/03/2020 7:37 AM GRAPHIC DESIGN INTERN): Was advised in past to get chest CT to r/o aortic aneurysm, to discuss with pcp. Assessment & Plan (03/25/2020 8:33 AM GRAPHIC DESIGN INTERN): Was advised in past to get chest CT to r/o aortic aneurysm, to discuss with pcp. Assessment & Plan (03/24/2020 7:29 AM GRAPHIC DESIGN INTERN): Was advised in past to get chest [...] pcp. Assessment & Plan (04/20/2019 4:57 PM GRAPHIC DESIGN INTERN): Advised to get chest CT to r/o aortic aneurysm, to discuss with pcp. Assessment & Plan (10/31/2018 7:38 AM CDT): Advised to get chest CT to r/o aortic aneurysm, to discuss with pcp. Encounter for long-term (current) use of medicat ions 01/31/2017 Assessment & Plan (05/28/2022 8:07 AM GRAPHIC DESIGN INTERN): Quant gold neg 12/2019 Hep B and [...] showed osteoporosis [facility] 08/2019---[facility] labs reveal positive anti-EXPORT DOCUMENTS CLERK antibody which is likely a false positive due to negative ASHLEY. Her father had psoriasis, pt changed from ra to PsA on 03/25/2020. ?? Assessment & Plan (02/26/2022 8:16 AM GRAPHIC DESIGN INTERN): Quant gold neg 12/2019 Hep B and [...] showed osteoporosis [facility] 08/2019---[facility] labs reveal positive anti-EXPORT DOCUMENTS CLERK antibody which is likely a false [...] showed osteoporosis [facility] 08/2019---[facility] labs reveal positive anti-EXPORT DOCUMENTS CLERK antibody which is likely a false [...] showed osteoporosis [facility] 08/2019---[facility] labs reveal positive anti-EXPORT DOCUMENTS CLERK antibody which is likely a false [...] showed osteoporosis [facility] 08/2019---[facility] labs reveal positive anti-EXPORT DOCUMENTS CLERK antibody which is likely a false [...] showed osteoporosis [facility] 08/2019---[facility] labs reveal positive anti-EXPORT DOCUMENTS CLERK antibody which is likely a false positive due to negative ASHLEY. Her father had psoriasis, pt changed from ra to PsA on 03/25/2020. ?? Assessment & Plan (06/28/2021 8:44 AM GRAPHIC DESIGN INTERN): Quant gold neg 12/2019 Hep B and [...] showed osteoporosis [facility] 08/2019---[facility] labs reveal positive anti-EXPORT DOCUMENTS CLERK antibody which is likely a false positive due to negative ASHLEY. Her father had psoriasis, pt changed from ra to PsA on 03/25/2020. ?? Assessment & Plan (06/15/2021 10:44 AM GRAPHIC DESIGN INTERN): Quant gold neg 12/2019 Hep B and [...] showed osteoporosis [facility] 08/2019---[facility] labs reveal positive anti-EXPORT DOCUMENTS CLERK antibody which is likely a false positive due to negative ASHLEY. Her father had psoriasis, pt changed from ra to PsA on 03/25/2020. ?? Assessment & Plan (06/09/2021 10:15 AM GRAPHIC DESIGN INTERN): Quant gold neg 12/2019 Hep B and [...] showed osteoporosis [facility] 08/2019---[facility] labs reveal positive anti-EXPORT DOCUMENTS CLERK antibody which is likely a false positive due to negative ASHLEY. Her father had psoriasis, pt changed from ra to PsA on 03/25/2020. ?? Assessment & Plan (06/09/2021 8:29 AM GRAPHIC DESIGN INTERN): Quant gold neg 12/2019 Hep B and [...] showed osteoporosis [facility] 08/2019---[facility] labs reveal positive anti-EXPORT DOCUMENTS CLERK antibody which is likely a false positive due to negative ASHLEY. Her father had psoriasis, pt changed from ra to PsA on 03/25/2020. ?? Assessment & Plan (05/04/2021 8:19 AM GRAPHIC DESIGN INTERN): Quant gold neg 12/2019 Hep B and [...] showed osteoporosis [facility] 08/2019---[facility] labs reveal positive anti-EXPORT DOCUMENTS CLERK antibody which is likely a false positive due to negative ASHLEY. Her father had psoriasis, pt changed from ra to PsA on 03/25/2020. ?? Assessment & Plan (03/31/2021 9:20 AM GRAPHIC DESIGN INTERN): Quant gold neg 12/2019 Hep B and [...] showed osteoporosis [facility] 08/2019---[facility] labs reveal positive anti-EXPORT DOCUMENTS CLERK antibody which is likely a false [...] showed osteoporosis [facility] 08/2019---[facility] labs reveal positive anti-EXPORT DOCUMENTS CLERK antibody which is likely a false [...] showed osteoporosis [facility] 08/2019---[facility] labs reveal positive anti-EXPORT DOCUMENTS CLERK antibody which is likely a false [...] showed osteoporosis [facility] 08/2019---[facility] labs reveal positive anti-EXPORT DOCUMENTS CLERK antibody which is likely a false [...] showed osteoporosis [facility] 08/2019---[facility] labs reveal positive anti-EXPORT DOCUMENTS CLERK antibody which is likely a false positive due to negative ASHLEY. Her father had psoriasis, pt changed from ra to PsA on 03/25/2020. ?? Assessment & Plan (06/03/2020 2:56 PM GRAPHIC DESIGN INTERN): Quant gold neg 12/2019 Hep B and [...] showed osteoporosis [facility] 08/2019---[facility] labs reveal positive anti-EXPORT DOCUMENTS CLERK antibody which is likely a false positive due to negative ASHLEY. Her father had psoriasis, pt changed from ra to PsA on 03/25/2020. ?? Assessment & Plan (03/25/2020 3:03 PM GRAPHIC DESIGN INTERN): Quant gold neg 12/2019 HLA B27 negative [...] showed osteoporosis [facility] 08/2019---[facility] labs reveal positive anti-EXPORT DOCUMENTS CLERK antibody which is likely a false positive due to negative ASHLEY. Her father had psoriasis, pt changed from ra to PsA on 03/25/2020. ?? Assessment & Plan (03/24/2020 7:28 AM GRAPHIC DESIGN INTERN): Quant gold neg 12/2019 HLA B27 negative [...] showed osteoporosis [facility] 08/2019---[facility] labs reveal positive anti-EXPORT DOCUMENTS CLERK antibody which is likely a false [...] showed osteoporosis [facility] 08/2019---[facility] labs reveal positive anti-EXPORT DOCUMENTS CLERK antibody which is likely a false [...] showed osteoporosis [facility] 08/2019---[facility] labs reveal positive anti-EXPORT DOCUMENTS CLERK antibody which is likely a false [...] showed osteoporosis [facility] 08/2019---[facility] labs reveal positive anti-EXPORT DOCUMENTS CLERK antibody which is likely a false [...] showed osteoporosis [facility] 08/2019---[facility] labs reveal positive anti-EXPORT DOCUMENTS CLERK antibody which is likely a false [...] showed osteoporosis [facility] 08/2019---[facility] labs reveal positive anti-EXPORT DOCUMENTS CLERK antibody which is likely a false [...] ?? Assessment & Plan (04/20/2019 4:59 PM GRAPHIC DESIGN INTERN): Quant gold neg 10/2018. TPMT nl 17 [...] 01/31/2017 Assessment & Plan (05/28/2022 8:05 AM GRAPHIC DESIGN INTERN): Images from the original note were not included. Had orencia infusion 05/02/2022. Continue orencia monotherapy. Off arava due to lipase elevation. Seeing gi at [facility] now. [place] and egd utd and nl in past year per pt. Had a nl pancreatic US recently with gi. Past serologies: [facility] panel 08/2019---labs reveal positive anti-EXPORT DOCUMENTS CLERK antibody which is likely a false positive due to negative ASHLEY. ?? RF neg but has a possible family hx of psoriatic arthritis (father) so if she develops psoriasis diagnosis will change to psoriatic arthritis. Rt hand US 09/2019 showed: ??F/u 1 month. Assessment & Plan (02/26/2022 12:12 PM GRAPHIC DESIGN INTERN): Images from the original note were not included. High cdai. Her orencia is scheduled tomorrow. Continue orencia monotherapy. Off arava due to lipase elevation. Seeing gi at [facility] now. [place] and egd utd and nl in past year per pt. Had a nl pancreatic US recently with gi. She could be flaring up since her orencia is due tomorrow, overall she still feels that it is helping her joints. Past serologies: [facility] panel 08/2019---labs reveal positive anti-EXPORT DOCUMENTS CLERK antibody which is likely a false [...] no complications or infections. Seeing gi at [facility] now for her elevated lipase. [place] and egd utd and nl in past year per pt. If labs stable will restart low dose arava 10mg po every day. To stay off orencia until recovered from rt knee surgery. Past serologies: [facility] panel 08/2019---labs reveal positive anti-EXPORT DOCUMENTS CLERK antibody which is likely a false [...] orencia is scheduled tomorrow. Seeing gi at [facility] now. [place] and egd utd and nl in past year per pt. Due to burden of dz will give her a short course of oral prednisone. Discussed risks and se of systemic steroids. Past serologies: [facility] panel 08/2019---labs reveal positive anti-EXPORT DOCUMENTS CLERK antibody which is likely a false [...] orencia is scheduled tomorrow. Seeing gi at [facility] now. [place] and egd utd and nl in past year per pt. Due to burden of dz will give her a short course of oral prednisone. Discussed risks and se of systemic steroids. Past serologies: [facility] panel 08/2019---labs reveal positive anti-EXPORT DOCUMENTS CLERK antibody which is likely a false [...] gi dr arias for her pancreatitis . [place] and egd utd and nl in past year per pt. Seen with dr woodruff today. Past serologies: [facility] panel 08/2019---labs reveal positive anti-EXPORT DOCUMENTS CLERK antibody which is likely a false positive due to negative ASHLEY. ?? RF neg but has a possible family hx of psoriatic arthritis (father) so if she develops psoriasis diagnosis will change to psoriatic arthritis. Rt hand US 09/2019 showed: ??F/u 1 month. Assessment & Plan (06/28/2021 10:22 AM GRAPHIC DESIGN INTERN): Images from the original note were not [...] Past serologies: [facility] panel 08/2019---labs reveal positive anti-EXPORT DOCUMENTS CLERK antibody which is likely a false positive due to negative ASHLEY. ?? RF neg but has a possible family hx of psoriatic arthritis (father) so if she develops psoriasis diagnosis will change to psoriatic arthritis. Rt hand US 09/2019 showed: ??F/u 1 month. Assessment & Plan (06/15/2021 10:46 AM GRAPHIC DESIGN INTERN): Images from the original note were not [...] Past serologies: [facility] panel 08/2019---labs reveal positive anti-EXPORT DOCUMENTS CLERK antibody which is likely a false positive due to negative ASHLEY. ?? RF neg but has a possible family hx of psoriatic arthritis (father) so if she develops psoriasis diagnosis will change to psoriatic arthritis. Rt hand US 09/2019 showed: ??F/u 1 month. Assessment & Plan (06/09/2021 10:16 AM GRAPHIC DESIGN INTERN): Images from the original note were not [...] Past serologies: [facility] panel 08/2019---labs reveal positive anti-EXPORT DOCUMENTS CLERK antibody which is likely a false positive due to negative ASHLEY. ?? RF neg but has a possible family hx of psoriatic arthritis (father) so if she develops psoriasis diagnosis will change to psoriatic arthritis. Rt hand US 09/2019 showed: ??F/u 1 month. Assessment & Plan (06/09/2021 8:29 AM GRAPHIC DESIGN INTERN): Images from the original note were not [...] Past serologies: [facility] panel 08/2019---labs reveal positive anti-EXPORT DOCUMENTS CLERK antibody which is likely a false positive due to negative ASHLEY. ?? RF neg but has a possible family hx of psoriatic arthritis (father) so if she develops psoriasis diagnosis will change to psoriatic arthritis. Rt hand US 09/2019 showed: ??F/u 1 month. Assessment & Plan (05/05/2021 10:11 PM GRAPHIC DESIGN INTERN): Images from the original note were not [...] Past serologies: [facility] panel 08/2019---labs reveal positive anti-EXPORT DOCUMENTS CLERK antibody which is likely a false positive due to negative ASHLEY. ?? RF neg but has a possible family hx of psoriatic arthritis (father) so if she develops psoriasis diagnosis will change to psoriatic arthritis. Rt hand US 09/2019 showed: ??F/u 1 month. Assessment & Plan (03/31/2021 9:24 AM GRAPHIC DESIGN INTERN): Images from the original note were not [...] Past serologies: [facility] panel 08/2019---labs reveal positive anti-EXPORT DOCUMENTS CLERK antibody which is likely a false [...] Past serologies: [facility] panel 08/2019---labs reveal positive anti-EXPORT DOCUMENTS CLERK antibody which is likely a false [...] Past serologies: [facility] panel 08/2019---labs reveal positive anti-EXPORT DOCUMENTS CLERK antibody which is likely a false [...] Past serologies: [facility] panel 08/2019---labs reveal positive anti-EXPORT DOCUMENTS CLERK antibody which is likely a false [...] Past serologies: [facility] panel 08/2019---labs reveal positive anti-EXPORT DOCUMENTS CLERK antibody which is likely a false positive due to negative ASHLEY. ?? RF neg but has a possible family hx of psoriatic arthritis (father) so if she develops psoriasis diagnosis will change to psoriatic arthritis. Rt hand US 09/2019 showed: ?? Assessment & Plan (06/03/2020 5:27 PM GRAPHIC DESIGN INTERN): Images from the original note were not [...] Past serologies: [facility] panel 08/2019---labs reveal positive anti-EXPORT DOCUMENTS CLERK antibody which is likely a false positive due to negative ASHLEY. ?? RF neg but has a possible family hx of psoriatic arthritis (father) so if she develops psoriasis diagnosis will change to psoriatic arthritis. Rt hand US 09/2019 showed: ?? Assessment & Plan (03/25/2020 3:01 PM GRAPHIC DESIGN INTERN): Images from the original note were not [...] Past serologies: [facility] panel 08/2019---labs reveal positive anti-EXPORT DOCUMENTS CLERK antibody which is likely a false positive due to negative ASHLEY. ?? RF neg but has a possible family hx of psoriatic arthritis (father) so if she develops psoriasis diagnosis will change to psoriatic arthritis. Rt hand US 09/2019 showed: ?? Assessment & Plan (03/24/2020 7:29 AM GRAPHIC DESIGN INTERN): Images from the original note were not included. [place] ai Wants to go back to sq orencia, gave pt 1 mo of samples and will start approval. Can't come in for iv orencia, her dad is on hospice. Increase imuran to 100mg bid, check cbc/cmp in 2 weeks and f/u in 1month. Past serologies: [facility] panel 08/2019---labs reveal positive anti-EXPORT DOCUMENTS CLERK antibody which is likely a false [...] Past serologies: [facility] panel 08/2019---labs reveal positive anti-EXPORT DOCUMENTS CLERK antibody which is likely a false [...] Past serologies: [facility] panel 08/2019---labs reveal positive anti-EXPORT DOCUMENTS CLERK antibody which is likely a false [...] every day. [facility] panel 08/2019---labs reveal positive anti-EXPORT DOCUMENTS CLERK antibody which is likely a false positive due to negative ASHLEY. ??Otherwise labs look good. ??No evidence of a new autoimmune connective tissue disease. Cont orencia sq and imuran 100mg po qhs. Soledad better on iv orencia, will change from [...] since resolved. [facility] panel 08/2019---labs reveal positive anti-EXPORT DOCUMENTS CLERK antibody which is likely a false [...] of orencia. [facility] panel 08/2019---labs reveal positive anti-EXPORT DOCUMENTS CLERK antibody which is likely a false [...] of orencia. [facility] panel 08/2019---labs reveal positive anti-EXPORT DOCUMENTS CLERK antibody which is likely a false [...] ?? Assessment & Plan (04/23/2019 1:46 PM GRAPHIC DESIGN INTERN): High cdai. On orencia IV but has [...] citrate. Assessment & Plan (06/03/2020 2:56 PM GRAPHIC DESIGN INTERN): Multiple kidney stones for over 10 yrs, [...] Sister 2 Michelle Abdirahman Arthritis Maternal Grandfather [place] Foster Cancer Maternal Grandfather [place] Foster Arthritis Maternal Grandmother Ondina Foster Cancer [...] on file Legal Sex Female 9:24 PM GRAPHIC DESIGN INTERN Gender Identity Female 08/14/2022 11:32 AM [...] HEPATITIS C AB Routine 06/29/2015 2:43 PM GRAPHIC DESIGN INTERN from Last 3 Months or Most Recently Relevant to Health Maintenance Results * ThinPrep Pap with HPV (12/24/2018 3:41 PM CDT) 12/24/2018 3:41 PM CDT 12/25/2018 8:54 AM CDT Narrative [facility] - 12/26/2018 2:53 PM CDT [facility] Department of Pathology [address] [place] [id number] Final Report with Addendum Patient Name: ??CAMACHOJULIAN Address: ??[address] [place] [address], ?? [place], [place] [address] Gender: ??F : ??1975 (Age: 43) Service: ??Laboratory Location: ??Lab Hospital #: ??[id number] Patient Type: ?? Ref Lab Taken: ??12/24/2018 Received: ??12/25/2018 Accessioned:: ??12/26/2018 Reported: ??12/26/2018 Physician(s): Curtis Oseguera M.D. [facility] Diagnosis: Source of Specimen: ? SCREENING IMAGED [...] determined by the Surgical Pathology Department at [facility] as part of an ongoing quality assurance specialist program and in compliance with federally [...] characteristics determined by the Surgical Pathology Department [facility]. ??It has not been cleared or approved by the U. S. Food and Drug Administration. Curtis Oseguera MD LAB CYTOLOGY ORDERABLES Final Result [facility] [address] [place], [place] [id number] [place] [address] * Serum Hepatitis C ab (06/29/2015 2:43 PM GRAPHIC DESIGN INTERN) HCV ab Non-Reacti ve Non-Reacti ve HISTORICAL RESULTS Serum 06/29/2015 2:43 PM GRAPHIC DESIGN INTERN Miriam VALLE LAB BLOOD ORDERAB LES Final Result HISTORICAL RESULTS from Last 3 Months or Most Recently Relevant to Health Maintenance Insurance [employer] Care Teams Underwriting Technician Relationship Specialty Start Date End Date Bhupinder Tobias MD [address] [facility] [address] [place] [address] PCP - General Internal Medicine 06/03/20 Cash Woodruff III, MD [address] [place] [address] Rheumatology 04/12/17 Jorge Aguiar MD [address] [facility] [address] [facility] [address] [place] [address] Consulting Physician Urology 11/10/20 Khoa Arias MD [address] [facility] [address] [place] [address] Referring Physician Gastroenterology 03/20/21
--- OUTSIDE RECORDS SUMMARY | 2024-05-21 01:50 | XMS_ITS | Continuity of Care Document ---
Author Organization [facility] Address [address] [place] [address] Phone Care Team Providers Care Vacuum Drier Operator Name Role Phone Amadeo Arias MD Unavailable [...] Copied on Encounter OFFICE/OUTPAT IENT VISIT EST [facility], [address] [address], [place], [address], tel:[phone] [facility] [place] Patellofemoral instability, rightOther specified sprain of right wrist, initial encounter 0 6 Hugo Childs. [address], [place], [place], [id number] . tel: [phone] [facility], [address] [facility] [address], [place], [address], [place] tel:[phone] [facility] Acute bilateral low back pain without sciaticaLeft hip painArthralgia of right hipPatellofemo ral instability, leftPatellofem oral instability, right 6 Hugo Childs. [address], [place], [place], [id number] . tel: [phone] OFFICE CONSULTATION [facility], [address] [facility] [address], [place], [address], tel:[phone] [facility] [place] Patellofemoral instability, rightPatellofe moral instability, leftArthralgia of right hipLeft hip painAcute bilateral low back pain without sciatica 201 6 Hugo Childs. [address], [place], [place], [id number] . tel: [phone] Referring Provider: Michelle De La Torre[address], [place], [address] . tel:[phone] Family History Family Member Type Diagnosis Age At Onset Sister Problem (finding) Alive and well Payers Payer name Insurance type Covered constitution party ID Authoriza tion(s) [facility] Choice/Choice Plus E2 [id number] Social History Type Description Quantity Date Captured [...]
--- OUTSIDE RECORDS SUMMARY | 2024-05-21 01:50 | XMS_ITS | Clinical Summary ---
Author Organization [facility] [employer] Address [address] [address] Care Team Providers Care Drug Safety Assistant Name Role Phone Jonathan Hartman RN Unavailable [phone] Feliciano Dash MD Primary Care Provider [phone] Source Comments [facility],non-owned Affiliates and Associated Physician Practices is amultiple site organization consisting of ambulatory clinics and hospital sitesin [place], [place], [place] and [place]. This disclosure is being madepursuant to the Care Everywhere program and may not contain all information available regarding this patient. Last updated 18.[facility] Allergies Active Allergy Reactions Criticality Noted Date [...] transdermal route every 24 hours. Obtains from [employer] in [place]. 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 Obtains from [employer] in [place]. 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 [...] mg/dL 08/02/2015 10:49 AM CDT [facility] Triglycerides 156(H) <150 mg/dL 08/02/2015 10:49 AM CDT [facility] HDL Cholesterol 43 >40 mg/dL 08/02/2015 10:49 AM CDT [facility] LDL Calculated 110 <130 mg/dL 08/02/2015 10:49 AM CDT [facility] VLDL Calculated 31(H) <=30 mg/dL 08/02/2015 10:49 AM CDT [facility] Chol HDL Ratio 4.3 <4.5 08/02/2015 10:49 AM CDT [facility] LDL/HDL Ratio 2.6 <5.0 08/02/2015 10:49 AM CDT [facility] Blood BLOOD SPECIMEN / Unknown Lab Venipuncture / Unknown 08/02/2015 10:02 AM CDT 08/02/2015 10:13 AM CDT Chucho Hinton MD LAB - CHEMISTRY [place] [facility] Organization Address City/State/[facility] Co de Phone Number [facility] [address] [place] [address] from Last 3 Months or Most Recently Relevant to Health Maintenance Advance Directives * Full Code (Latest Code Status on File) Date Activated Date Inactivated Comments 01/29/2017 7:53 PM 02/02/2017 1:02 PM * Full Code Date Activated Date Inactivated Comments 08/02/2015 1:57 AM 08/05/2015 3:00 PM * Full Code Date Activated Date Inactivated Comments 07/13/2015 10:36 PM 07/16/2015 3:55 PM Care Teams Drug Safety Assistant Relationship Specialty Start Date End Date Feliciano Dash MD [address] [place] [id number] PCP - General 07/14/21 Jonathan Hartman RN Oil Laboratory Analyst 07/14/15
--- OUTSIDE RECORDS SUMMARY | 2024-05-21 01:50 | XMS_ITS | Patient Health Summary ---
Author Organization [facility] Address [address] [facility] [place] [address] Care Team Providers Care Program Proposals Coordinator Name Role Phone Jonathan Hartman RN Unavailable [phone] Feliciano Dash MD Primary Care Provider [phone] Note from [facility],non-owned Affiliates and Associated Physician Practices is amultiple site organization consisting of ambulatory clinics and hospital sitesin [place], [place], [place] and [place]. This disclosure is being madepursuant to the Care Everywhere program and may not contain all information available regarding this patient. Last updated 18.[facility] Allergies * Ibuprofen(Other) -Medium Criticality Medications * [...] transdermal route every 24 hours. Obtains from [facility] in [place]. Reasons: Rhemuatoid arthiritis and Meredith-Danlos syndrome * Other CDB-THC (1:1 ratio) 10 mg capsule by mouth daily. Obtains from [facility] in [place]. Reasons: Rheumatoid arthritis and Meredith-Danlos syndrome * [...] 07/15/2015) Performed for Intractable abdominal pain * MPO/OR 3 AUTOANTIBODIES PANEL(Performed 07/15/2015) Performed for Diverticulitis [...] 10.7 x10E9/L 02/01/2017 4:35 AM CDT [facility] WBC Corrected x10E9/L 02/01/2017 4:35 AM CDT [facility] RBC 3.88 3.80 - 5.20 x10E12/L 02/01/2017 4:35 AM CDT [facility] Hemoglobin 11.3(L) 12.0 - 15.6 gm/dL 02/01/2017 4:35 AM CDT [facility] Hematocrit 35.1(L) 35.9 - 45.5 % 02/01/2017 4:35 AM CDT [facility] MCV 90.5 80.7 - 98.3 fl 02/01/2017 4:35 AM CDT [facility] MCH 29.1 26.7 - 34.0 pg 02/01/2017 4:35 AM CDT [facility] MCHC 32.2 30.8 - 35.9 gm/dL 02/01/2017 4:35 AM CDT [facility] Platelet Count 313 153 - 416 x10E9/L 02/01/2017 4:35 AM CDT [facility] RDW-CV 13.4 12.1 - 14.9 % 02/01/2017 4:35 AM CDT [facility] MPV 8.7(L) 9.4 - 12.9 fl 02/01/2017 4:35 AM CDT [facility] Neutrophils % 55.7 44.0 - 73.0 % 02/01/2017 4:35 AM CDT [facility] Lymphocytes % 30.7 20.0 - 43.0 % 02/01/2017 4:35 AM CDT [facility] Monocytes % 6.0 5.0 - 13.0 % 02/01/2017 4:35 AM CDT [facility] Eosinophils % 3.5 0.0 - 6.0 % 02/01/2017 4:35 AM CDT [facility] Basophils % 1.0 0.0 - 2.0 % 02/01/2017 4:35 AM CDT [facility] Immature Granulocytes 3.1(H) 0 - 1 % 02/01/2017 4:35 AM CDT [facility] Neutrophil Absolute 3.99 2.01 - 7.14 x10E9/L 02/01/2017 4:35 AM CDT [facility] Lymphocytes Absolute 2.20 1.07 - 3.94 x10E9/L 02/01/2017 4:35 AM CDT [facility] Monocytes Absolute 0.43 0.26 - 1.07 x10E9/L 02/01/2017 4:35 AM CDT [facility] Eosinophils Absolute 0.25 0 - 0.47 x10E9/L 02/01/2017 4:35 AM CDT [facility] Basophils Absolute 0.07 0 - 0.08 x10E9/L 02/01/2017 4:35 AM CDT [facility] Immature Granulocytes Absolute 0.22(H) 0.00 - 0.06 x10E9/L 02/01/2017 4:35 AM CDT [facility] nRBC Auto 0 /100 WBC 02/01/2017 4:35 AM CDT [facility] Blood BLOOD SPECIMEN / Unknown Lab Venipuncture / Unknown 02/01/2017 3:29 AM CDT 02/01/2017 4:22 AM CDT Kristi Shah MD LAB - HEMATOLOGY ORD ERABLES [facility] [address] [place] [address] * (ABNORMAL) BASIC METABOLIC PANEL (CALCIUM TOTAL) (02/01/2017 3:29 AM CDT) Only the most recent of4 resultswithin the time period is included. [employer] Signature Glucose 81 74 - 106 mg/dL 02/01/2017 4:48 AM CDT [facility] Sodium 139 136 - 145 mmol/L 02/01/2017 4:48 AM CDT [facility] Potassium 3.5 3.5 - 5.1 mmol/L 02/01/2017 4:48 AM CDT [facility] Chloride 112(H) 98 - 107 mmol/L 02/01/2017 4:48 AM CDT [facility] CO2 19(L) 22 - 31 mmol/L 02/01/2017 4:48 AM CDT [facility] Calcium 8.3(L) 8.5 - 10.1 mg/dL 02/01/2017 4:48 AM CDT [facility] Anion Gap 8 8 - 16 mmol/L 02/01/2017 4:48 AM CDT [facility] BUN 8 7 - 21 mg/dL 02/01/2017 4:48 AM CDT [facility] Creatinine 0.76 0.50 - 1.30 mg/dL 02/01/2017 4:48 AM CDT [facility] eGFR by MDRD >60 >60 mL/min/1.7 3m2 02/01/2017 4:48 AM CDT [facility] eGFR by MDRD >60 >60 mL/min/1.7 3m2 02/01/2017 4:48 AM CDT [facility] Blood BLOOD SPECIMEN / Unknown Lab Venipuncture / Unknown 02/01/2017 3:29 AM CDT 02/01/2017 4:22 AM CDT Kristi Shah MD LAB - CHEMISTRY MORGAN YEE [facility] [address] [place] [address] * MYCOPLASMA PNEUMO ANTIBODY IGG/IGM PANEL (01/30/2017 2:42 AM CDT) Mycoplasma pneumoniae Antibody IgG <100 0 - 99 U/mL 01/31/2017 4:21 PM CDT [facility] ([facility]) Comment: ? Negative: ? <100 ? [...] U/mL 01/31/2017 4:21 PM CDT [facility] ([facility]) Comment: ? Negative ?<770 Clinically significant [...] 2:42 AM CDT 01/30/2017 3:08 AM CDT [facility] ([facility]) - 01/31/2017 4:21 PM CDT Performed at: ??01 - [address] ??[id number] Rn Ostomy: Mahendra Trevino PhD, Phone: ??[phone] Akira Romero MD LAB - SEROLOGY ORDER BOB [facility] ([facility]) [address] [place] [address] * (ABNORMAL) CHLAMYDIA ANTIBODY IGG/IGM PANEL (01/30/2017 2:42 AM CDT) Chlamydia psittaci Antibody IgM <1:10 Neg:<1:10 02/01/2017 5:10 PM CDT [facility] ([facility]) Comment: This test was developed and its performance characteristics determined by [facility]. ??It has not been cleared or approved by the Food and Drug Administration. ??The FDA has determined that such clearance or approval is not necessary. Chlamydia psittaci Antibody IgG <1:16 Neg:<1:16 02/01/2017 5:10 PM [facility]T [facility] Comment: This test was developed and its performance characteristics determined by [facility]. ??It has not been cleared or approved by the Food and Drug Administration. ??The FDA has determined that such clearance or approval is not necessary. Chlamydia pneumoniae Antibody IgM <1:16 Neg:<1:16 02/01/2017 5:10 PM CDT [facility] ([facility]) Test Information Comment 02/02/20 17 5:10 PM CDT [facility] ([facility]) Comment: This test was developed and [...] Neg:<1:10 02/01/2017 5:10 PM CDT [facility] ([facility]) Chlamydia trachomatis Antibody IgM <0.8 0.0 - 0.7 index 02/01/2017 5:10 PM CDT [facility] ([facility]) Comment: ?Negative ? <0.8 ?Borderline ?0.8 - 1.0 ?Positive ? >1.0 Results for this test are for research purposes only by the assay's artillery meteorological man. ??The performance characteristics of this product have not been established. ??Results should not be used as a diagnostic procedure without confirmation of the diagnosis by another medically established diagnostic product or procedure. Chlamydia Antibody IgG 1.18(H) 0.00 - 0.90 ratio 02/01/2017 5:10 PM CDT [facility] ([facility]) Comment: ?Negative ? <0.91 ?Equivocal ??0.91 - 1.09 ?Positive ? >1.09 Blood BLOOD SPECIMEN / Unknown Lab Venipuncture / Unknown 01/30/2017 2:42 AM CDT 01/30/2017 3:08 AM CDT Narrative [facility] ([facility]) - 02/01/2017 5:10 PM CDT Performed at: ??01 - [facility] ??[id number] Rn Ostomy: Curtis Sanchez MD, Phone: ??[phone] Akira Romero MD LAB - CHEMISTRY ORDE RABLES Performing Organization Address [facility] de Phone Number [facility] ([facility]) [address] [place] [address] * HISTOPLASMA GALACTOMANNAN AG URINE (01/29/2017 10:37 PM CDT) Histoplasma galactomannan Antigen Urine <0.5 <0.5 ng/mL 02/01/2017 3:19 PM CDT [facility] ([facility]) Disclaimer Comment 02/01/2017 3:19 PM CDT [facility] ([facility]) Comment: This test was developed and its performance characteristics determined by [facility]. It has not been cleared or approved by the Food and Drug Administration. Urine URINE / Unknown Collection / Unknown 01/29/2017 10:37 PM CDT 01/29/2017 10:43 PM CDT Narrative [facility] ([facility]) - 02/01/2017 3:19 PM CDT Performed at: ??01 - [facility] ??[id number] Rn Ostomy: Curtis Sanchez MD, Phone: ??[phone] Akira Romero MD LAB - URINE CHEMISTR Y ORDERABLES Performing Organization Address [facility] Co de Phone Number [facility]) [address] [place] [address] * RESPIRATORY PATHOGEN PANEL BY PCR (01/29/2017 10:36 PM CDT) Adenovirus PCR Not detected Not detected, Invalid, Indeterminate 01/30/2017 5:53 AM CDT [facility] Human Metapneumovirus PCR Not detected Not detected, Invalid, Indeterminate 01/30/2017 5:53 AM CDT [facility] Human Rhinovirus/Entero virus PCR Not detected Not detected, Invalid, Indeterminate 01/30/2017 5:53 AM CDT [facility] Influenza A Non Subtyped PCR Not detected Not detected, Invalid, Indeterminate 01/30/2017 5:53 AM CDT [facility] Influenza A H1 PCR Not detected Not detected, Invalid, Indeterminate 01/30/2017 5:53 AM CDT [facility] Influenza A H3 PCR Not detected Not detected, Invalid, Indeterminate 01/30/2017 5:53 AM CDT [facility] Influenza A H1 2009 PCR Not detected Not detected, Invalid, Indeterminate 01/30/2017 5:53 AM CDT [facility] Influenza B PCR Not detected Not detected, Invalid, Indeterminate 01/30/2017 5:53 AM CDT [facility] Mycoplasma pneumoniae PCR Not detected Not detected, Invalid, Indeterminate 01/30/2017 5:53 AM CDT [facility] Parainfluenza Virus 1 PCR Not detected Not detected, Invalid, Indeterminate 01/30/2017 5:53 AM CDT [facility] Parainfluenza Virus 2 PCR Not detected Not detected, Invalid, Indeterminate 01/30/2017 5:53 AM CDT [facility] Parainfluenza Virus 3 PCR Not detected Not detected, Invalid, Indeterminate 01/30/2017 5:53 AM CDT [facility] Parainfluenza Virus 4 PCR Not detected Not detected, Invalid, Indeterminate 01/30/2017 5:53 AM CDT [facility] Respiratory Syncytial Virus PCR Not detected Not detected, Invalid, Indeterminate 01/30/2017 5:53 AM CDT [facility] Bordetella pertussis PCR Not detected Not detected, Invalid 01/30/2017 5:53 AM CDT [facility] Coronavirus PCR Not detected Not detected, Invalid, Indeterminate 01/30/2017 5:53 AM CDT [facility] Microbiology NASOPHARYNGEAL SWAB / Unknown Collection / Unknown 01/29/2017 10:36 PM CDT 01/29/2017 10:42 PM CDT Narrative [facility] - 01/30/2017 5:53 AM CDT Coronavirus PCR detects the following coronaviruses: 229E, HKU1, NL63, OC43. Akira Roemro MD LAB - MICROBIOLOGY O ASHLEIGH Performing Organization Address [facility] Co de Phone Number [facility] [address] [place] [address], [facility] [phone] * CULTURE BLOOD (01/29/2017 6:59 PM CDT) Only the most recent of2 resultswithin the time period is included. Culture No growth day 5 CARLOS EDUARDO 02/04/2017 12:00 AM CDT [facility] Blood PERIPHERAL BLOOD / Unknown Venipuncture / Unknown 01/29/2017 6:59 PM CDT 01/29/2017 7:03 PM CDT Clinton Dorman DO LAB - MICROBIOLOGY O ASHLEIGH Performing Organization Address [facility] de Phone Number [facility] [address] [place] [address], [facility] [phone] * CT CHEST PE (01/29/2017 5:23 PM [...] resultswithin the time period is included. Pathologist [facility] HCG Qual Urine Negative Negative [facility] POCT TESTING QC Verified Yes Yes [facility] POC T TESTING Urine URINE / Unknown 01/29/2017 4 :45 PM CDT Clinton Dorman DO LAB - POINT OF CARE ORDERABLES [facility] POCT TESTING [address] [place] [address] * (ABNORMAL) D-DIMER (01/29/2017 3:57 PM CDT) Pathologist [facility] D-Dimer 0.71(H) 0.17 - 0.5 mg/L FEU 01/29/2017 4:14 PM CDT [facility] Blood BLOOD SPECIMEN / Unknown Venipuncture / Unknown 01/29/2017 3:57 PM CDT 01/29/2017 3:59 PM CDT Narrative [facility] - 01/29/2017 4:14 PM [...] [facility] Co de Phone Number [facility] [address] [place] [address] * INFLUENZA A+B ANTIGEN RAPID (01/29/2017 1:38 PM CDT) [facility] Influenza A Antigen Negative Negative 01/29/2017 1:55 PM CDT [facility] Influenza B Antigen Negative Negative 01/29/2017 1:55 PM CDT [facility] Microbiology NASOPHARYNGEAL SWAB / Unknown Collection / Unknown 01/29/2017 1:38 PM CDT 01/29/2017 1:43 PM CDT Narrative [facility] - 01/29/2017 1:55 PM [...] - MICROBIOLOGY O RDERABLES Performing Organization Address [facility] Co de Phone Number [facility] [address] [place] [address] * EKG 12-LEAD (01/29/2017 12:20 PM CDT) Only the most recent of2 resultswithin the time period is included. [facility] Ventricular Rate 100 BPM [facility] MUSE Atrial Rate 100 BPM [facility] MUSE P-R Interval 84 ms [facility] MUSE QRS Duration ms 102 ms [facility] MUSE Q-T Interval ms 366 ms [facility] MUSE QTC Calculation (Bezet) 472 ms [facility] MUSE Calculated P [place] 26 degrees [facility] MUSE Calculated R [place] 48 degrees [facility] MUSE Calculated T [place] 33 degrees [facility]USE Interpretation EKG SINUS RHYTHM WITH SHORT OR NONSPECIFIC ST ABNORMALITY ABNORMAL ECG Confirmed by MD Lisandra, Toi ([id number]) on 01/30/2017 7:55:22 AM [facility] MUSE 01/29/2017 12:2 0 PM CDT 01/30/2017 7:55 AM CDT Clinton Dorman DO ECG ORDERABLES Performing Organization Address [facility] de Phone Number [facility] MUSE * (ABNORMAL) COMPREHENSIVE METABOLIC PANEL (01/29/2017 12:14 PM CDT) Only the most recent of6 resultswithin the time period is included. [facility] Glucose 97 74 - 106 mg/dL 01/29/2017 12:44 PM CDT [facility] Sodium 137 136 - 145 mmol/L 01/29/2017 12:44 PM CDT [facility] Potassium 3.6 3.5 - 5.1 mmol/L 01/29/2017 12:44 PM CDT [facility] Chloride 108(H) 98 - 107 mmol/L 01/29/2017 12:44 PM CDT [facility] CO2 18(L) 22 - 31 mmol/L 01/29/2017 12:44 PM CDT [facility] Calcium 8.7 8.5 - 10.1 mg/dL 01/29/2017 12:44 PM CDT [facility] Anion Gap 11 8 - 16 mmol/L 01/29/2017 12:44 PM CDT [facility] BUN 13 7 - 21 mg/dL 01/29/2017 12:44 PM CDT [facility] Creatinine 0.93 0.50 - 1.30 mg/dL 01/29/2017 12:44 PM CDT [facility] Alkaline Phosphatase 70 38 - 126 U/L 01/29/2017 12:44 PM CDT [facility] ALT 21 13 - 61 U/L 01/29/2017 12:44 PM CDT [facility] AST 17 5 - 40 U/L 01/29/2017 12:44 PM CDT [facility] Protein Total 7.6 6.4 - 8.2 gm/dL 01/29/2017 12:44 PM CDT [facility] Albumin 3.3(L) 3.4 - 5.0 gm/dL 01/29/2017 12:44 PM CDT [facility] Bilirubin Total 0.5 0.2 - 1.0 mg/dL 01/29/2017 12:44 PM CDT [facility] eGFR by MDRD >60 >60 mL/min/1.7 3m2 01/29/2017 12:44 PM CDT [facility] eGFR by MDRD >60 >60 mL/min/1.7 3m2 01/29/2017 12:44 PM CDT [facility] Blood BLOOD SPECIMEN / Unknown Venipuncture / Unknown 01/29/2017 12:14 PM CDT 01/29/2017 12:27 PM CDT Clinton Dorman DO LAB - CHEMISTRY MORGAN YEE [facility] Organization Address City/State/ZIP Co de Phone Number [facility] [address] [place] [address] * LACTIC ACID BLOOD (01/29/2017 12:14 PM CDT) Only the most recent of2 resultswithin the time period is included. Lactic Acid 1.7 0.7 - 2.1 mmol/L 01/29/2017 12:44 PM CDT [facility] Blood BLOOD SPECIMEN / Unknown Venipuncture / Unknown 01/29/2017 12:14 PM CDT 01/29/2017 12:27 PM CDT Clinton Dorman DO LAB - CHEMISTRY MORGAN YEE [facility] [address] [place] [address] * CT RENAL STONE PROTOCOL (NO IV AND NO ORAL CONTRAST) (05/17/2016 1:00 PM [employer]ESSING [employer]) Anatomical Region Laterality Modality Abdomen, Pelvis Computed Tomogra phy 05/17/2016 1:14 PM [employer] Impressions 05/17/2016 1:19 PM [employer] 1. Multiple bilateral renal calculi seen within the kidneys without evidence of hydronephrosis or hydroureter. The largest calculus on the right measures approximately 4 mm and the largest on the left approximately 5 mm. Narrative 05/17/2016 1:[address] abdomen and pelvis without contrast Technique: [...] ROUTINE W/REFLEX TO CULTURE (05/17/2016 12:49 PM [employer]ESS[employer] WORK[employer]) Only the most recent of5 resultswithin the time period is included. Color UA Yellow Straw, Yellow, Dark Yellow 05/17/2016 1:08 PM [employer] [facility] Clarity UA Clear 05/17/2016 1:08 PM [employer] WORK[employer] [facility] Specific [place] UA 1.020 1.005 - 1.030 05/17/2016 1:08 PM [employer] [facility] pH UA 6.5 5.0 - 8.0 pH 05/17/2016 1:[address] [facility] Protein UA Negative Negative 05/17/2016 1:08 PM [employer] [facility] Blood UA Negative Negative 05/17/2016 1:[address] [facility] Leukocyte UA 2+(A) Negative 05/17/2016 1:[address] [facility] Nitrite UA Negative Negative 05/17/2016 1:08 PM [employer] [facility] Glucose UA Negative Negative 05/17/2016 1:[address] [facility] Ketone UA Negative Negative 05/17/2016 1:[address] [facility] Bilirubin UA Negative Negative 05/17/2016 1:[address] [facility] Urobilinogen UA 0.2 0.1 - 1.0 EU/dL 05/17/2016 1:[address] [facility] WBC UA Auto 5-10(A) 0-2, 2-5 # /hpf 05/17/2016 1:[address] [facility] RBC UA Auto 2-5 0-2, 2-5 # /hpf 05/17/2016 1:[address] [facility] Epithelial Cell UA Auto 5-10(A) 0-2, 2-5 # /hpf 05/17/2016 1:[address] [facility] Bacteria UA Auto 1+(A) None seen 05/17/19 17 1:[address] [facility] Reflex Status Culture to follow 05/17/2016 1:[address] 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 Culture 10,000-50,000 CFU/mL urogenital adelso CARLOS EDUARDO 05/18/2016 3:24 PM [employer] [facility] Urine URINE SPECIMEN OBTAINED BY CLEAN CATCH PROCEDURE / Unknown Collection / Unknown 05/17/2016 12:49 PM [employer] 05/17/2016 12:56 PM [employer] WORKER Eleno Mcclure DO LAB - MICROBIOLOGY O ASHLEIGH Performing Organization Address City/[facility]/ZIP Co de Phone Number [facility] [address] [place] [phone] * HELICOBACTER PYLORI UREASE (STL) (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) Helicobacter pylori Urease Initial Negative Negative 04/07/2016 11:49 AM [employer] [facility] Helicobacter pylori Urease Final Negative Negative 04/07/2016 11:49 AM [employer] WORK[employer] [facility] Microbiology GASTRIC CONTENTS SPECIMEN / Unknown 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 04/06/2016 12:31 PM [employer]ER Armando Corona MD LAB - MICROBIOLOGY Rafa SOTELO Performing Organization Address [facility] Co de Phone Number [facility] [address] [place] [address] * 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 --- Professional --- ? 43668, Esophagogastroduode noscopy, flexible, transoral; with biopsy, ? single or multiple ? --- Technical --- ? 29271, Esophagogastroduode noscopy, flexible, transoral; with biopsy, ? single or multiple Diagnosis Code(s): ? --- Professional --- ? K20.9, Esophagitis, unspecified ? K29.70, Gastritis, unspecified, without bleeding ? R10.9, Unspecified abdominal pain ? --- Technical --- ? K20.9, Esophagitis, unspecified ? K29.70, Gastritis, unspecified, without bleeding ? R10.9, Unspecified abdominal pain CPT copyright 2015 [employer]. All rights reserved. The codes documented in this report are preliminary and upon cigar bander review may be revised to meet current compliance requirements. Armando Corona, 04/06/2016 9:52:47 AM This report has been signed electronically. Number of Addenda: 0 Note Initiated On: 04/06/2016 9:19 AM [facility] 04/06/2016 9:19 AM [employer] Narrative Procedure Note Armando Corona MD - 04/06/2016 9:53 AM CST EGD Grade A esophagitis Mild gastritis s/p bx Nl duodenum Armando Corona MD GI PROCEDURE ORDERAB LES [facility] * ENDOSCOPY, COLON, DIAGNOSTIC (12/15/2015 12:53 PM CDT) Armando Corona MD GI PROCEDURE ORDERAB LES * GROSS + MICRO EXAM (STL) (12/15/2015 12:34 PM CDT) Only the most recent of4 resultswithin the time period is included. Case Report Surgical Pathology Report ? Case: [id number] ? Authorizing Provider: ??Armando Corona MD ?Collected: ? 12/15/2015 12:34 PM ? Ordering Location: ? [facility] ?Received: ?12/16/2015 09:42 AM ? Pathologist: ? Doris Morrison MD ? Specimen: ?Colon Biopsy, random colon biopsy ? 12/17/2015 10:[address] [facility] Final Diagnosis 1. ??Large intestine, random colon, endoscopic biopsy: -- ??No histopathologic abnormality OBEY/tao 12/17/2015 10:[address] [facility] Gross Description Received in formalin in a container labeled Madalyn Walton, random colon biopsy. ??The container holds multiple pink-baird tissue fragments measuring from 0.2 cm up to 0.4 cm. The specimen is entirely submitted in a cassette labeled A1. LIYA/eloy 12/17/2015 10:[address] [facility] Microscopic Description Histologic sections show fragments of large intestinal mucosa without specific histopathologic abnormality. ??There is no evidence of lymphocytic or collagenous colitis. ??There is no evidence of dysplasia or malignancy. ?? OBEY/tao 12/17/2015 10:19 AM CDT [facility] Pathology/Cytolo gy COLONIC BIOPSY SPECIMEN / Unknown 12/15/2015 12:34 PM CDT 12/16/2015 9:42 AM CDT Armando Corona MD LAB - PATHOLOGY/CYTO LOGY ORDERABLES [facility] [address], [place] [id number] * ENDOSCOPY, COLON, SCREENING (12/15/2015 12:23 PM CDT) Report Endoscopy POC _ Patient Name: Madalyn Walton ? Procedure Date: 12/15/2015 12:23 PM ? Date of : 1975 ?Admit Type: Outpatient Age: 40 ? Gender: Female Attending MD: Armando Corona , ? _ Procedure: ? Colonoscopy Indications: ? Lower abdominal pain Providers: ? Armando Corona (Doctor), Enma Wong, ? 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 40F pmh 40F pmh [...] Procedure Code(s): ? --- Professional --- ? 43961, Colonoscopy, flexible; with biopsy, single or multiple ? --- Technical --- ? 81568, Colonoscopy, flexible; with biopsy, single or multiple Diagnosis Code(s): ? --- Professional --- ? R10.30, Lower abdominal pain, unspecified ? --- Technical --- ? R10.30, Lower abdominal pain, unspecified CPT copyright 2015 [employer]. All rights reserved. The codes documented in this report are preliminary and upon cigar bander review may be revised to meet current compliance requirements. Armando Corona, 12/15/2015 12:47:51 PM This report has been signed electronically. Number of Addenda: 0 Note Initiated On: 12/15/2015 12:23 PM [facility] 12/15/2015 12:2 3 PM CDT Narrative Transcriptions Armando Corona MD - 12/15/2015 12:53 PM CDT Neg colon s/p random bx Armando Corona MD GI PROCEDURE ORDERAB LES Performing Organization Address City/[facility]/ZIP Co de Phone Number [facility] * (ABNORMAL) LIPASE BLOOD (08/27/2015 6:11 PM CDT) Only the most recent of3 resultswithin the time period is included. Lipase 264(H) 10 - 220 U/L 08/27/2015 7:11 PM CDT [facility] Blood BLOOD SPECIMEN / Unknown Venipuncture / Unknown 08/27/2015 6:11 PM CDT 08/27/2015 6:14 PM CDT Coltno Caballero MD LAB - CHEMISTRY ORDERABLES Performing Organization Address City/[facility]/ZIP Co de Phone Number [facility] [address] [place] [address] * (ABNORMAL) URINALYSIS MICROSCOPIC ONLY W/REFLEX CULTURE (08/12/2015 9:16 PM CDT) Only the most recent of2 resultswithin the time period is included. RBC UA 0-2 0-2, 2-5 # /hpf 08/12/2015 9:29 PM CDT [facility] WBC UA 2-5 0-2, 2-5 # /hpf 08/12/2015 9:29 PM CDT [facility] Bacteria UA 2+(A) None Seen 08/12/2015 9:29 PM CDT [facility] Epithelial Cell UA 10-20(A) 0-2, 2-5 # /hpf 08/12/2015 9:29 PM CDT [facility] Calcium Oxalate Crystals 1+(A) None Seen 08/12/2015 9:29 PM CDT [facility] Urine URINE SPECIMEN OBTAINED BY CLEAN CATCH PROCEDURE / Unknown 08/12/2015 9:16 PM CDT 08/12/2015 9:19 PM CDT Narrative [facility] - 08/12/2015 9:29 PM CDT *Microscopic performed on un-spun urine; <3mL urine submitted Eleno Mcclure DO LAB - URINALYSIS ORD ERABLES Performing Organization Address [facility] Co de Phone Number [facility] [address] [place] [phone] * PT-INR (08/12/2015 7:29 PM CDT) PT 9.9 9.5 - 11.6 sec 08/12/2015 7:58 PM CDT [facility] INR 1.0 0.9 - 1.1 08/12/2015 7:58 PM CDT [facility] Blood BLOOD SPECIMEN / Unknown Venipuncture / Unknown 08/12/2015 7:29 PM CDT 08/12/2015 7:44 PM CDT Narrative [facility] - 08/12/2015 7:58 PM CDT Conventional Warfarin Anticoagulant Therapy: INR Reference Range: ??2.0-3.0 Intensive Warfarin Anticoagulant Therapy: INR Reference Range: ? 2.5-3.5 Eleno Mcclure DO LAB - COAGULATION OR DERABLES Performing Organization Address [facility] Co de Phone Number [facility] [address] [place] [address] * HEMOGLOBIN (08/04/2015 11:16 AM CDT) Pathologist [facility] Hemoglobin 12.6 12.0 - 15.6 gm/dL 08/04/2015 11:28 AM CDT [facility] Blood BLOOD SPECIMEN / Unknown Lab Venipuncture / Unknown 08/04/2015 11:16 AM CDT 08/04/2015 11:22 AM CDT Armando Corona MD LAB - HEMATOLOGY ORD ERABLES [facility] [address], [place] [id number] * ENDOSCOPY, COLON, DIAGNOSTIC (08/04/2015 9:04 AM CDT) [facility] Report Endoscopy POC _ Patient Name: [...] Procedure Code(s): ? --- Professional --- ? 74171, Colonoscopy, flexible; with removal of tumor(s), polyp(s), or ? other lesion(s) by snare technique ? --- Technical --- ? 44318, Colonoscopy, flexible; with removal of tumor(s), polyp(s), [...] abscess ? without bleeding CPT copyright 2015 [employer]. All rights reserved. The codes documented in this report are preliminary and upon cigar bander review may be revised to meet current compliance requirements. Armando Corona, 08/04/2015 9:38:09 AM This report has been signed electronically. Number of Addenda: 0 Note Initiated On: 08/04/2015 9:04 AM [facility] 08/04/2015 9:04 AM CDT Narrative Transcriptions Armando Corona MD - 08/04/2015 9:39 AM CDT Colonoscopy * fair prep *few diverticuli * no old or fresh blood * normal terminal ileum rec PRN hyoscyamine Capsule endoscopy today Armando Corona MD GI PROCEDURE ORDERAB LES [facility] * EGD (08/03/2015 7:24 AM [...] (Doctor), Roxi Bennett, ANTHONY, Sona Dove, ? 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 40F pmh depression, arthritis, [...] Procedure Code(s): ? --- Professional --- ? 84172, Esophagogastroduod enoscopy, flexible, transoral; with biopsy, ? single or multiple ? --- Technical --- ? 47555, Esophagogastroduod enoscopy, flexible, transoral; with biopsy, ? single or multiple Diagnosis Code(s): ? --- Professional --- ? K29.70, Gastritis, unspecified, without bleeding ? R10.13, Epigastric pain ? R10.33, Periumbilical pain ? K92.1, Melena (includes Hematochezia) ? --- Technical --- ? K29.70, Gastritis, unspecified, without bleeding ? R10.13, Epigastric pain ? R10.33, Periumbilical pain ? K92.1, Melena (includes Hematochezia) CPT copyright 2015 [employer]. All rights reserved. The codes documented in this report are preliminary and upon cigar bander review may be revised to meet current compliance requirements. Armando Corona, 08/03/2015 8:00:13 AM This report has been signed electronically. Number of Addenda: 0 Note Initiated On: 08/03/2015 7:24 AM [facility] 08/03/2015 7:24 AM CDT Narrative Transcriptions Armando Corona MD - 08/03/2015 8:00 AM CDT EGD - mild gastritis bx'd, other normal to proximal jejunum Rec Colonoscopy tomorrow Follow cbcs Armando Corona MD GI PROCEDURE ORDERAB LES Performing Organization Address City/[facility] Co de Phone Number [facility] * CULTURE STOOL+ E COLI SHIGA-LIKE TOXIN (08/02/2015 4:51 PM CDT) Only the most recent of2 resultswithin the time period is included. Culture No growth Salmonella, Shigella, Campylobacter , E. coli 0157:h7 or Yersinia CARLOS EDUARDO 08/04/2015 6:27 AM CDT [facility] Culture Negative E. coli Shiga-like toxin (NM) CARLOS EDUARDO 08/04/2015 6:27 AM CDT [facility] Stool STOOL SPECIMEN / Unknown Collection / Unknown 08/02/2015 4:51 PM CDT 08/02/2015 4:56 PM CDT Chucho Hinton MD LAB - MICROBIOLOGY O RDERABLES Performing Organization Address City/[facility]/ZIP Co de Phone Number [facility] [address] [place] [address], [facility] [phone] * HGB HCT PANEL (08/02/2015 10:02 AM CDT) Hemoglobin 12.3 12.0 - 15.6 gm/dL 08/02/2015 10:37 AM CDT [facility] Hematocrit 37.6 35.9 - 45.5 % 08/02/2015 10:37 AM CDT [facility] Blood BLOOD SPECIMEN / Unknown Lab Venipuncture / Unknown 08/02/2015 10:02 AM CDT 08/02/2015 10:13 AM CDT Akira Romero MD LAB - HEMATOLOGY ORD PRIMITIVO Performing Organization Address [facility]/ZIP Co de Phone Number [facility] [address] [place] [address] * ALCOHOL ETHYL BLOOD (08/02/2015 10:02 AM CDT) Ethanol <10 <10 mg/dL 08/02/2015 10:49 AM CDT [facility] Ethanol Calculated <0.100 gm/dL 08/02/2015 10:49 AM CDT [facility] Blood BLOOD SPECIMEN / Unknown Lab Venipuncture / Unknown 08/02/2015 10:02 AM CDT 08/02/2015 10:13 AM CDT Narrative [facility] - 08/02/2015 10:49 AM CDT Non Legal Serum Alcohol Chucho Hinton MD LAB - CHEMISTRY MORGAN YEE Performing Organization Address [facility] Co de Phone Number [facility] [address] [place] [address] * (ABNORMAL) LIPID PROFILE (08/02/2015 10:02 AM CDT) Cholesterol 184 <200 mg/dL 08/02/2015 10:49 AM CDT [facility] Triglycerides 156(H) <150 mg/dL 08/02/2015 10:49 AM CDT [facility] HDL Cholesterol 43 >40 mg/dL 08/02/2015 10:49 AM CDT [facility] LDL Calculated 110 <130 mg/dL 08/02/2015 10:49 AM CDT [facility] VLDL Calculated 31(H) <=30 mg/dL 08/02/2015 10:49 AM CDT [facility] Chol HDL Ratio 4.3 <4.5 08/02/2015 10:49 AM CDT [facility] LDL/HDL Ratio 2.6 <5.0 08/02/2015 10:49 AM CDT [facility] Blood BLOOD SPECIMEN / Unknown Lab Venipuncture / Unknown 08/02/2015 10:02 AM CDT 08/02/2015 10:13 AM CDT Chucho Hinton MD LAB - CHEMISTRY MORGAN YEE [facility] Organization Address City/State/ZIP Co de Phone Number [facility] [address] [place] [address] * CT ABDOMEN AND PELVIS WITH IV [...] ABO A 08/01/2015 8:23 PM CDT [facility] Rh Type Positive 08/01/2015 8:23 PM CDT [facility] Comment:History check perfor med. Retype required. Antibody Screen Negative 08/01/2015 8:23 PM CDT [facility] Miscellaneous samples (specimen) BLOOD SPECIMEN / Unknown Venipuncture / Unknown 08/01/2015 7:19 PM CDT 08/01/2015 7:22 PM CDT Hari Niño MD LAB - BLOOD BANK ORD ERABLES [facility] [address] * LAB RESULTS ORDER (07/19/2015 5:06 [...] (Doctor), Felipe Gasca RN, Daren ? Jose, Farmworker Grain Patient Profile: ?? 40F pmh depression, arthritis [...] Procedure Code(s): ? --- Professional --- ? 38500, Esophagogastroduod enoscopy, flexible, transoral; with biopsy, ? single or multiple ? --- Technical --- ? 76240, Esophagogastroduod enoscopy, flexible, transoral; with biopsy, ? single or multiple Diagnosis Code(s): ? --- Professional --- ? K25.9, Gastric ulcer, unspecified as acute or chronic, without ? hemorrhage or perforation ? R10.13, Epigastric pain ? --- Technical --- ? K25.9, Gastric ulcer, unspecified as acute or chronic, without ? hemorrhage or perforation ? R10.13, Epigastric pain CPT copyright 2015 [employer]. All rights reserved. The codes documented in this report are preliminary and upon cigar bander review may be revised to meet current compliance requirements. Armando Corona, 07/15/2015 2:36:07 PM This report has been signed electronically. Number of Addenda: 0 Note Initiated On: 07/15/2015 2:08 PM [facility] 07/15/2015 2:08 PM CDT Narrative [...] GI PROCEDURE ORDERAB LES Performing Organization Address [facility]/ZIP Co de Phone Number [facility] * MPO/OR 3 AUTOANTIBODIES PANEL (07/15/2015 5:51 AM CDT) Anti-myeloperox idase (MPO) Antibody <9.0 0.0 - 9.0 U/mL 07/18/2015 1:17 PM CDT [facility] ([facility]) Anti-proteinase 3 (OR-3) Abs <3.5 0.0 - 3.5 U/mL 07/18/2015 1:17 PM CDT [facility] ([facility]) Blood specimen (specimen) BLOOD SPECIMEN / Unknown Lab Venipuncture / Unknown 07/15/2015 5:51 AM CDT 07/15/2015 6:11 AM CDT Narrative [facility] ([facility]) - 07/18/2015 1:17 PM CDT Performed at: ??01 - [facility] [address] ??[id number] Rn Ostomy: Curtis Sanchez MD, Phone: ??[phone] Chucho Hinton MD LAB - CHEMISTRY MORGAN YEE Performing Organization Address City/[facility]/ZIP Co de Phone Number [facility] ([facility]) * (ABNORMAL) C-REACTIVE PROTEIN (07/15/2015 5:50 AM CDT) Pathologist [facility] C-Reactive Protein 0.30(H) <0.30 mg/dL 07/15/2015 6:48 AM CDT [facility] Blood BLOOD SPECIMEN / Unknown Lab Venipuncture / Unknown 07/15/2015 5:50 AM CDT 07/15/2015 6:11 AM CDT Chucho Hinton MD LAB - CHEMISTRY ORDE RABLES Performing Organization Address [facility] Co de Phone Number [facility] [address] [place], [place] [phone] * SED RATE WESTERGREN (07/15/2015 5:50 AM CDT) [facility] Erythrocyte Sedimentation Rate Westergren 7 0 - 20 mm/hr 07/15/2015 6:36 AM CDT [facility] Blood BLOOD SPECIMEN / Unknown Lab Venipuncture / Unknown 07/15/2015 5:50 AM CDT 07/15/2015 6:11 AM CDT Chucho Hinton MD LAB - HEMATOLOGY ORD ERABLES Performing Organization Address [facility] Co de Phone Number [facility] [address] [place] [phone] * (ABNORMAL) LACTOFERRIN FECAL QUALITATIVE (07/14/2015 1:44 PM CDT) [facility] Lactoferrin Fecal Positive( A) Negative 07/14/2015 9:15 PM CDT [facility] Stool STOOL SPECIMEN / Unknown Collection / Unknown 07/14/2015 1:44 PM CDT 07/14/2015 3:56 PM CDT Narrative [facility] - 07/14/2015 9:15 PM CDT Fecal [...] City/[facility]/ZIP Co de Phone Number [facility] [address] [place] [address], [facility] [phone] * CLOSTRIDIUM DIFFICILE GDH AG + TOXIN A+B (07/14/2015 1:43 PM CDT) GDH Antigen Negative Negative, Invalid 07/15/2015 9:08 AM CDT [facility] C difficile Toxin A + B Negative Negative, Invalid 07/15/2015 9:08 AM CDT [facility] Interpretation C difficile Negative for toxigenic C. difficile Negative for toxigenic C. difficile 07/15/2015 9:08 AM CDT [facility] Stool STOOL SPECIMEN / Unknown Collection / Unknown 07/14/2015 1:43 PM CDT 07/14/2015 3:55 PM CDT Chucho Hinton MD LAB - MICROBIOLOGY O RDERABLES Performing Organization Address [facility] Co de Phone Number [facility] [address] [place] [address], [facility] [phone] * XR HANDS BILATERAL 2 VIEWS (06/29/2015 1:18 PM 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 Narrative 06/29/2015 7:38 PM POULTRY DRESSING WORKER BILATERAL HANDS, TWO VIEWS OF EACH HISTORY: [...] [facility] TRINO Olivarez ORDERABLES Care Teams Program Proposals Coordinator Relationship Specialty Start Date End Date Feliciano Dash MD [address] [facility] [address] [place] [address] PCP - General 07/14/21 Jonathan Hartman, RN Geothermal Heat Pump Machinist 07/14/15
--- OUTSIDE RECORDS SUMMARY | 2024-05-21 01:50 | XMS_ITS ---
Author Organization [facility] As [employer] [facility] Address [address] [place] [address] Care Team Providers Care Resource Conservationist Name Role Phone Jose Zhang DO Primary Care Provider UnavailAlix Sher Unavailable [phone] Allergies No Known Allergies REASON FOR VISIT f/u medication eval Medications Medication SIG (Take, Route, Frequency, Duration) Notes Start Date End Date Status Pantoprazole Sodium 40 MG Oral Active Potassium Citrate ER 15 mEq Oral *Pick strength-form from hoccer for eRX* Active ALPRAZolam 0.5 MG 1 [...] Active LUBIPROSTONE 24 MCG CAPSULE *Reorder from [facility]cer for eRx and Interaction Alerts* Active Ondansetron [...] NoDo you have a medical power of deputy prosecuting attorney?: No Problems Problem Type SNOMED Code ICD Code Onset Dates Problem Status W/U Status Risk Notes 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 Vital Signs Blood pressure systolic 152 mm Hg 04/16/20 24 Blood pressure diastolic 80 mm Hg 024 Heart Rate 88 /min 04/16/2024 Height 66.00 in 04/16/2024 Weight 225.0 lbs 04/16/2024 BMI 36.31 kg/m2 04/16/2024 Height-cm 167.64 cm 04/16/2024 Weight-kg 102.06 kg 04/16/2024 Encounters Encounter [facility] Date [facility] [address] [place] [address] 04/16/2024 Alix Sanchez Generalized anxiety disorder F41.1 [...] Reason: Provider Name:Alix goldman, 06/12/2024 02:45:00 PM, [address], [address], [place], [address], Progress Notes * CAMACHO JULIANDOB:1975 ( 48 yo F)Acc No.[id number]:04/16/2024 Patient:JULIAN LUJAN Provider:Piper Sanchez :1975???Age:48 Y???Sex:Female D ate:04/16/2024 Address:[address] [place] [address], [facility] Pcp:Jose Zhang DO Subjective: * Chief Complaints: [...] other people??Extremely difficult,?Interpretation of Total?(10 to 14) Moderate.?Beacon-Suicide Severity Rating Scale:?Suicide Risk (CSRS-screener)?in the past [...] * Surgical History:?Sinus surg millie Tonsilectomy/adenoids 04/22/1980Hysterectomy (10036) 03/01/2023oopherectomy 12/2023 * Hospitalization/Major Diagno stic Procedure:? 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 Advance Care Planning?Are you your own decision-maker?Yes,?Do you have Power of Warp Knitter Helper for Health or Medical??No.?Social History:?Household?Marital Status:?,?Number of [...] technical, or vocational programAre you currently employed?: [employer] is your employer?: I have [employer] and have been ?retired? for 5 years.Marriage and SexualityWhat is your relationship status?: MarriedAre you sexually active?: NoDo you use protection during sex?: NoHow many children do you have?: 5Home and EnvironmentAre there any guns present in your home?: NoAdvance DirectiveDo you have an advance directive?: NoDo you have a medical power of deputy prosecuting attorney?: No. * Medications:?TakingDULoxetin e HCl 60 [...] CAPSULE , Notes to Pharmacist: *Reorder from [facility] for eRx and Interaction Alerts*SUMAtriptan Succinate 6 MG/0.5ML Solution Auto-injector Subcutaneous Pantoprazole Sodium 40 MG Tablet Delayed Release Oral Potassium Citrate ER 15 mEq Tablet Extended Release Oral , Notes to Pharmacist: *Pick strength-form from [facility] for eRX*ALPRAZolam 0.5 MG Tablet 1 tablet [...] CAPSULE , Notes to Pharmacist: *Reorder from [facility] for eRx and Interaction Alerts*Taking SUMAtriptan Succinate 6 MG/0.5ML Solution Auto-injector Subcutaneous Taking Pantoprazole Sodium 40 MG Tablet Delayed Release Oral Taking Potassium Citrate ER 15 mEq Tablet Extended Release Oral , Notes to Pharmacist: *Pick strength-form from hoccer for eRX*Taking ALPRAZolam 0.5 MG Tablet 1 [...] days, 30 Tablet, Refills 1.?? * Procedure Codes:?82810 BEHAV ASSMT W/SCORE & DOCD/STAND [id number] VISIT COMPLEXITY INHERENT TO ONGOING CARE RELATED [...] Months * Billing Information: * Visit Code:? 29664 OFFICE OUTPATIENT VISIT 25 MINUTES DETAILED HISTORY AND EXAM/MODERATE MEDICAL DECISION MAKING. * Procedure Codes:? 12154 BEHAV ASSMT W/SCORE & DOCD/STAND INSTRUMENT. G2211 VISIT COMPLEXITY INHERENT TO ONGOING CARE RELATED TO A PATIENT'S SINGLE, SERIOUS CONDITION OR A COMPLEX CONDITION. * L MARKETING SPECIALIST Electronically co-signed by Alix Sanchez on 04/28/2024 at 05:16 PM EMAIL MARKETING SPECIALIST Sign off status: Completed true * Provider:Piper Sanchez Date:? 024 Generated for Tree regalado/Caryl/Maikelsmdeep on:?2024 01:49 AM EMAIL MARKETING SPECIALIST History and Physical Notes * HPI (History [...] of Total: (10 to 14) Mode rate Beacon-Suicide Severity Rating Scale Suicide Risk (CSRS-screener) in [...]
--- OUTSIDE RECORDS SUMMARY | 2024-05-21 01:50 | XMS_ITS | Referral Summary ---
Author Organization [facility] [email or web address] Address [address] [place] [address] Care Team Providers Care Supply Clerk Name Role Phone Jonathan Hartman RN Unavailable [phone] Feliciano Dash MD Primary Care Provider [phone] Source Comments [facility],non-owned Affiliates and Associated Physician Practices is amultiple site organization consisting of ambulatory clinics and hospital sitesin [place], [place], [place] and [place]. This disclosure is being madepursuant to the Care Everywhere program and may not contain all information available regarding this patient. Last updated 18.[facility] Allergies Active Allergy Reactions Criticality Noted [...] transdermal route every 24 hours. Obtains from [facility] in [place]. 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 Obtains from [facility] in [place]. 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 [...] Ratio 2.6 <5.0 08/02/2015 10:49 AM CDT [facility] Blood BLOOD SPECIMEN / Unknown Lab Venipuncture / Unknown 08/02/2015 10:02 AM CDT 08/02/2015 10:13 AM CDT Chucho Hinton MD LAB - CHEMISTRY MORGAN [facility] Organization Address City/State/ZIP Co de Phone Number [facility] [address] [place] [address] from Last 3 Months or Most Recently Relevant to Health Maintenance Advance Directives * Full Code (Latest Code Status on File) Date Activated Date Inactivated Comments 01/29/2017 7:53 PM 02/02/2017 1:02 PM * Full Code Date Activated Date Inactivated Comments 08/02/2015 1:57 AM 08/05/2015 3:00 PM * Full Code Date Activated Date Inactivated Comments 07/13/2015 10:36 PM 07/16/2015 3:55 PM Care Teams Supply Clerk Relationship Specialty Start Date End Date Feliciano Dash MD [address] [facility] [address] [place] [id number] PCP - General 07/14/21 Jonathan Hartman, RN Bookkeeping Clerk 07/14/15
--- OUTSIDE RECORDS SUMMARY | 2024-05-21 01:50 | XMS_ITS | Referral Summary ---
Author Organization [id number] Address [address] [place] [address] Phone Care Team Providers Care Online Marketing Coordinator Name Role Phone Kumar CARRILLO MD, John J. Unavailable [phone] Bhupinder Tobias MD Primary Care Provider [phone] Jorge Aguiar MD Unavailable Khoa Arias MD Unavailable [phone] Allergies No known active allergies Medications SUMAtriptan [...] (08/30/2021): Added automatically from request for surgery [id number] Abdominal pain 03/31/2021 Assessment & Plan (06/28/2021 10:08 AM WIRE WRAPPING MACHINE OPERATOR): Recently dx with mild pancreatitis. Needs lipase/amylase rechecked. Still has some upper abd pain. Advised pt to f/u with GI also. Assessment & Plan (06/19/2021 8:52 AM WIRE WRAPPING MACHINE OPERATOR): Had abd pain early this month, check amyl/lip and ua. Pain has resolved. Assessment & Plan (05/05/2021 10:13 PM WIRE WRAPPING MACHINE OPERATOR): Having abd pain, bloating, constipation. On meds for IBS and also using suppositories to have BM. Incidental findings of mesenteric fat stranding (adenitis or panniculitis) on abd CT. Awaiting further eval by Dr. Arias. Assessment & Plan (03/31/2021 8:44 AM WIRE WRAPPING MACHINE OPERATOR): Elevated lipase. Imuran stopped. Pt advised [...] 04/23/2019 Assessment & Plan (03/24/2020 7:29 AM WIRE WRAPPING MACHINE OPERATOR): Normal serum immunoglobulins. Assessment & Plan [...] immunoglobulins. Assessment & Plan (04/23/2019 1:46 PM WIRE WRAPPING MACHINE OPERATOR): Check serum immunoglobulins. Osteoporosis without current pathological fractu re 09/18/2018 Assessment & Plan (08/10/2021 8:09 AM CDT): bds checked by pcp in past, is taking ca and vit d and pcp checked vit D and PTH per pt was wnl. Her pcp started her on alendronate 70mg po qweek. Taking ca + vit d 1200mg qd. Assessment & Plan (06/15/2021 10:46 AM WIRE WRAPPING MACHINE OPERATOR): bds checked by pcp in past, is taking ca and vit d and pcp checked vit D and PTH per pt was wnl. Her pcp started her on alendronate 70mg po qweek. Taking ca + vit d 1200mg qd. Assessment & Plan (06/09/2021 8:30 AM WIRE WRAPPING MACHINE OPERATOR): bds checked by pcp in past, is taking ca and vit d and pcp checked vit D and PTH per pt was wnl. Her pcp started her on alendronate 70mg po qweek. Taking ca + vit d 1200mg qd. Assessment & Plan (05/04/2021 8:19 AM WIRE WRAPPING MACHINE OPERATOR): bds checked by pcp in past, [...] qd. Assessment & Plan (06/03/2020 7:38 AM WIRE WRAPPING MACHINE OPERATOR): bds checked by pcp in past, is taking ca and vit d and pcp checked vit D and PTH per pt was wnl. Her pcp started her on alendronate 70mg po qweek. Taking ca + vit d 1200mg qd. Assessment & Plan (03/25/2020 8:34 AM WIRE WRAPPING MACHINE OPERATOR): bds checked by pcp in past, is taking ca and vit d and pcp checked vit D and PTH per pt was wnl. Her pcp started her on alendronate 70mg po qweek. Taking ca + vit d 1200mg qd. Assessment & Plan (03/24/2020 7:29 AM WIRE WRAPPING MACHINE OPERATOR): bds checked by pcp in past, [...] qd. Assessment & Plan (04/20/2019 4:56 PM WIRE WRAPPING MACHINE OPERATOR): bds checked by pcp in past, [...] pcp. Assessment & Plan (06/03/2020 7:37 AM WIRE WRAPPING MACHINE OPERATOR): Was advised in past to get chest CT to r/o aortic aneurysm, to discuss with pcp. Assessment & Plan (03/25/2020 8:33 AM WIRE WRAPPING MACHINE OPERATOR): Was advised in past to get chest CT to r/o aortic aneurysm, to discuss with pcp. Assessment & Plan (03/24/2020 7:29 AM WIRE WRAPPING MACHINE OPERATOR): Was advised in past to get [...] pcp. Assessment & Plan (04/20/2019 4:57 PM WIRE WRAPPING MACHINE OPERATOR): Advised to get chest CT to r/o aortic aneurysm, to discuss with pcp. Assessment & Plan (10/31/2018 7:38 AM CDT): Advised to get chest CT to r/o aortic aneurysm, to discuss with pcp. Encounter for long-term (current) use of medicat ions 01/31/2017 Assessment & Plan (05/28/2022 8:07 AM WIRE WRAPPING MACHINE OPERATOR): Quant gold neg 12/2019 Hep B [...] showed osteoporosis [facility] 08/2019---[facility] labs reveal positive anti-SALES REPRESENTATIVE SALES MANAGER antibody which is likely a false positive due to negative ASHLEY. Her father had psoriasis, pt changed from ra to PsA on 03/25/2020. ?? Assessment & Plan (02/26/2022 8:16 AM WIRE WRAPPING MACHINE OPERATOR): Quant gold neg 12/2019 Hep B [...] showed osteoporosis [facility] 08/2019---[facility] labs reveal positive anti-SALES REPRESENTATIVE SALES MANAGER antibody which is likely a false positive [...] showed osteoporosis [facility] 08/2019---[facility] reveal positive anti-SALES REPRESENTATIVE SALES MANAGER antibody which is likely a false positive [...] showed osteoporosis [facility] 08/2019---[facility] labs reveal positive anti-SALES REPRESENTATIVE SALES MANAGER antibody which is likely a false positive [...] showed osteoporosis [facility] 08/2019---[facility] reveal positive anti-SALES REPRESENTATIVE SALES MANAGER antibody which is likely a false positive [...] showed osteoporosis [facility] 08/2019---[facility] reveal positive anti-SALES REPRESENTATIVE SALES MANAGER antibody which is likely a false positive due to negative ASHLEY. Her father had psoriasis, pt changed from ra to PsA on 03/25/2020. ?? Assessment & Plan (06/28/2021 8:44 AM WIRE WRAPPING MACHINE OPERATOR): Quant gold neg 12/2019 Hep B [...] showed osteoporosis [facility] 08/2019---[facility] labs reveal positive anti-SALES REPRESENTATIVE SALES MANAGER antibody which is likely a false positive due to negative ASHLEY. Her father had psoriasis, pt changed from ra to PsA on 03/25/2020. ?? Assessment & Plan (06/15/2021 10:44 AM WIRE WRAPPING MACHINE OPERATOR): Quant gold neg 12/2019 Hep B [...] showed osteoporosis [facility] 08/2019---[facility] labs reveal positive anti-SALES REPRESENTATIVE SALES MANAGER antibody which is likely a false positive due to negative ASHLEY. Her father had psoriasis, pt changed from ra to PsA on 03/25/2020. ?? Assessment & Plan (06/09/2021 10:15 AM WIRE WRAPPING MACHINE OPERATOR): Quant gold neg 12/2019 Hep B [...] showed osteoporosis [facility] 08/2019---[facility] labs reveal positive anti-SALES REPRESENTATIVE SALES MANAGER antibody which is likely a false positive due to negative ASHLEY. Her father had psoriasis, pt changed from ra to PsA on 03/25/2020. ?? Assessment & Plan (06/09/2021 8:29 AM WIRE WRAPPING MACHINE OPERATOR): Quant gold neg 12/2019 Hep B [...] showed osteoporosis [facility] 08/2019---[facility] labs reveal positive anti-SALES REPRESENTATIVE SALES MANAGER antibody which is likely a false positive due to negative ASHLEY. Her father had psoriasis, pt changed from ra to PsA on 03/25/2020. ?? Assessment & Plan (05/04/2021 8:19 AM WIRE WRAPPING MACHINE OPERATOR): Quant gold neg 12/2019 Hep B [...] showed osteoporosis [facility] 08/2019---[facility] labs reveal positive anti-SALES REPRESENTATIVE SALES MANAGER antibody which is likely a false positive due to negative ASHLEY. Her father had psoriasis, pt changed from ra to PsA on 03/25/2020. ?? Assessment & Plan (03/31/2021 9:20 AM WIRE WRAPPING MACHINE OPERATOR): Quant gold neg 12/2019 Hep B [...] showed osteoporosis [facility] 08/2019---[facility] labs reveal positive anti-SALES REPRESENTATIVE SALES MANAGER antibody which is likely a false positive [...] showed osteoporosis [facility] 08/2019---[facility] labs reveal positive anti-SALES REPRESENTATIVE SALES MANAGER antibody which is likely a false positive [...] showed osteoporosis [facility] 08/2019---[facility] labs reveal positive anti-SALES REPRESENTATIVE SALES MANAGER antibody which is likely a false positive [...] showed osteoporosis [facility] 08/2019---[facility] labs reveal positive anti-SALES REPRESENTATIVE SALES MANAGER antibody which is likely a false positive [...] showed osteoporosis [facility] 08/2019---[facility] labs reveal positive anti-SALES REPRESENTATIVE SALES MANAGER antibody which is likely a false positive due to negative ASHLEY. Her father had psoriasis, pt changed from ra to PsA on 03/25/2020. ?? Assessment & Plan (06/03/2020 2:56 PM WIRE WRAPPING MACHINE OPERATOR): Quant gold neg 12/2019 Hep B [...] showed osteoporosis [facility] 08/2019---[facility] labs reveal positive anti-SALES REPRESENTATIVE SALES MANAGER antibody which is likely a false positive due to negative ASHLEY. Her father had psoriasis, pt changed from ra to PsA on 03/25/2020. ?? Assessment & Plan (03/25/2020 3:03 PM WIRE WRAPPING MACHINE OPERATOR): Quant gold neg 12/2019 HLA B27 [...] showed osteoporosis [facility] 08/2019---[facility] labs reveal positive anti-SALES REPRESENTATIVE SALES MANAGER antibody which is likely a false positive due to negative ASHLEY. Her father had psoriasis, pt changed from ra to PsA on 03/25/2020. ?? Assessment & Plan (03/24/2020 7:28 AM WIRE WRAPPING MACHINE OPERATOR): Quant gold neg 12/2019 HLA B27 [...] showed osteoporosis [facility] 08/2019---[facility] labs reveal positive anti-SALES REPRESENTATIVE SALES MANAGER antibody which is likely a false positive [...] showed osteoporosis [facility] 08/2019---[facility] labs reveal positive anti-SALES REPRESENTATIVE SALES MANAGER antibody which is likely a false positive [...] showed osteoporosis [facility] 08/2019---[facility] reveal positive anti-SALES REPRESENTATIVE SALES MANAGER antibody which is likely a false positive [...] showed osteoporosis [facility] 08/2019---[facility] labs reveal positive anti-SALES REPRESENTATIVE SALES MANAGER antibody which is likely a false positive [...] showed osteoporosis [facility] 08/2019---[facility] labs reveal positive anti-SALES REPRESENTATIVE SALES MANAGER antibody which is likely a false positive [...] showed osteoporosis [facility] 08/2019---[facility] reveal positive anti-SALES REPRESENTATIVE SALES MANAGER antibody which is likely a false positive [...] ?? Assessment & Plan (04/20/2019 4:59 PM WIRE WRAPPING MACHINE OPERATOR): Quant gold neg 10/2018. TPMT nl [...] 01/31/2017 Assessment & Plan (05/28/2022 8:05 AM WIRE WRAPPING MACHINE OPERATOR): Images from the original note were not included. Had orencia infusion 05/02/2022. Continue orencia monotherapy. Off arava due to lipase elevation. Seeing gi at [facility] now. [place] and egd utd and nl in past year per pt. Had a nl pancreatic US recently with gi. Past serologies: [facility] panel 08/2019---labs reveal positive anti-SALES REPRESENTATIVE SALES MANAGER antibody which is likely a false positive due to negative ASHLEY. ?? RF neg but has a possible family hx of psoriatic arthritis (father) so if she develops psoriasis diagnosis will change to psoriatic arthritis. Rt hand US 09/2019 showed: ??F/u 1 month. Assessment & Plan (02/26/2022 12:12 PM WIRE WRAPPING MACHINE OPERATOR): Images from the original note were not included. High cdai. Her orencia is scheduled tomorrow. Continue orencia monotherapy. Off arava due to lipase elevation. Seeing gi at [facility] now. [place] and egd utd and nl in past year per pt. Had a nl pancreatic US recently with gi. She could be flaring up since her orencia is due tomorrow, overall she still feels that it is helping her joints. Past serologies: [facility] panel 08/2019---labs reveal positive anti-SALES REPRESENTATIVE SALES MANAGER antibody which is likely a false positive [...] no complications or infections. Seeing gi at [facility] now for her elevated lipase. [place] and egd utd and nl in past year per pt. If labs stable will restart low dose arava 10mg po every day. To stay off orencia until recovered from rt knee surgery. Past serologies: [facility] panel 08/2019---labs reveal positive anti-SALES REPRESENTATIVE SALES MANAGER antibody which is likely a false positive [...] orencia is scheduled tomorrow. Seeing gi at [facility] now. [place] and egd utd and nl in past year per pt. Due to burden of dz will give her a short course of oral prednisone. Discussed risks and se of systemic steroids. Past serologies: [facility] panel 08/2019---labs reveal positive anti-SALES REPRESENTATIVE SALES MANAGER antibody which is likely a false positive [...] orencia is scheduled tomorrow. Seeing gi at [facility] now. [place] and egd utd and nl in past year per pt. Due to burden of dz will give her a short course of oral prednisone. Discussed risks and se of systemic steroids. Past serologies: [facility] panel 08/2019---labs reveal positive anti-SALES REPRESENTATIVE SALES MANAGER antibody which is likely a false positive [...] gi dr arias for her pancreatitis . [place] and egd utd and nl in past year per pt. Seen with dr woodruff today. Past serologies: [facility] panel 08/2019---labs reveal positive anti-SALES REPRESENTATIVE SALES MANAGER antibody which is likely a false positive due to negative ASHLEY. ?? RF neg but has a possible family hx of psoriatic arthritis (father) so if she develops psoriasis diagnosis will change to psoriatic arthritis. Rt hand US 09/2019 showed: ??F/u 1 month. Assessment & Plan (06/28/2021 10:22 AM WIRE WRAPPING MACHINE OPERATOR): Images from the original note were [...] Past serologies: [facility] panel 08/2019---labs reveal positive anti-SALES REPRESENTATIVE SALES MANAGER antibody which is likely a false positive due to negative ASHLEY. ?? RF neg but has a possible family hx of psoriatic arthritis (father) so if she develops psoriasis diagnosis will change to psoriatic arthritis. Rt hand US 09/2019 showed: ??F/u 1 month. Assessment & Plan (06/15/2021 10:46 AM WIRE WRAPPING MACHINE OPERATOR): Images from the original note were [...] Past serologies: [facility] panel 08/2019---labs reveal positive anti-SALES REPRESENTATIVE SALES MANAGER antibody which is likely a false positive due to negative ASHLEY. ?? RF neg but has a possible family hx of psoriatic arthritis (father) so if she develops psoriasis diagnosis will change to psoriatic arthritis. Rt hand US 09/2019 showed: ??F/u 1 month. Assessment & Plan (06/09/2021 10:16 AM WIRE WRAPPING MACHINE OPERATOR): Images from the original note were [...] Past serologies: [facility] panel 08/2019---labs reveal positive anti-SALES REPRESENTATIVE SALES MANAGER antibody which is likely a false positive due to negative ASHLEY. ?? RF neg but has a possible family hx of psoriatic arthritis (father) so if she develops psoriasis diagnosis will change to psoriatic arthritis. Rt hand US 09/2019 showed: ??F/u 1 month. Assessment & Plan (06/09/2021 8:29 AM WIRE WRAPPING MACHINE OPERATOR): Images from the original note were [...] Past serologies: [facility] panel 08/2019---labs reveal positive anti-SALES REPRESENTATIVE SALES MANAGER antibody which is likely a false positive due to negative ASHLEY. ?? RF neg but has a possible family hx of psoriatic arthritis (father) so if she develops psoriasis diagnosis will change to psoriatic arthritis. Rt hand US 09/2019 showed: ??F/u 1 month. Assessment & Plan (05/05/2021 10:11 PM WIRE WRAPPING MACHINE OPERATOR): Images from the original note were [...] Past serologies: [facility] panel 08/2019---labs reveal positive anti-SALES REPRESENTATIVE SALES MANAGER antibody which is likely a false positive due to negative ASHLEY. ?? RF neg but has a possible family hx of psoriatic arthritis (father) so if she develops psoriasis diagnosis will change to psoriatic arthritis. Rt hand US 09/2019 showed: ??F/u 1 month. Assessment & Plan (03/31/2021 9:24 AM WIRE WRAPPING MACHINE OPERATOR): Images from the original note were [...] Past serologies: [facility] panel 08/2019---labs reveal positive anti-SALES REPRESENTATIVE SALES MANAGER antibody which is likely a false positive [...] Past serologies: [facility] panel 08/2019---labs reveal positive anti-SALES REPRESENTATIVE SALES MANAGER antibody which is likely a false positive [...] Past serologies: [facility] panel 08/2019---labs reveal positive anti-SALES REPRESENTATIVE SALES MANAGER antibody which is likely a false positive [...] Past serologies: [facility] panel 08/2019---labs reveal positive anti-SALES REPRESENTATIVE SALES MANAGER antibody which is likely a false positive [...] Past serologies: [facility] panel 08/2019---labs reveal positive anti-SALES REPRESENTATIVE SALES MANAGER antibody which is likely a false positive due to negative ASHLEY. ?? RF neg but has a possible family hx of psoriatic arthritis (father) so if she develops psoriasis diagnosis will change to psoriatic arthritis. Rt hand US 09/2019 showed: ?? Assessment & Plan (06/03/2020 5:27 PM WIRE WRAPPING MACHINE OPERATOR): Images from the original note were [...] Past serologies: [facility] panel 08/2019---labs reveal positive anti-SALES REPRESENTATIVE SALES MANAGER antibody which is likely a false positive due to negative ASHLEY. ?? RF neg but has a possible family hx of psoriatic arthritis (father) so if she develops psoriasis diagnosis will change to psoriatic arthritis. Rt hand US 09/2019 showed: ?? Assessment & Plan (03/25/2020 3:01 PM WIRE WRAPPING MACHINE OPERATOR): Images from the original note were [...] Past serologies: [facility] panel 08/2019---labs reveal positive anti-SALES REPRESENTATIVE SALES MANAGER antibody which is likely a false positive due to negative ASHLEY. ?? RF neg but has a possible family hx of psoriatic arthritis (father) so if she develops psoriasis diagnosis will change to psoriatic arthritis. Rt hand US 09/2019 showed: ?? Assessment & Plan (03/24/2020 7:29 AM WIRE WRAPPING MACHINE OPERATOR): Images from the original note were not included. [place] ai Wants to go back to sq orencia, gave pt 1 mo of samples and will start approval. Can't come in for iv orencia, her dad is on hospice. Increase imuran to 100mg bid, check cbc/cmp in 2 weeks and f/u in 1month. Past serologies: [facility] panel 08/2019---labs reveal positive anti-SALES REPRESENTATIVE SALES MANAGER antibody which is likely a false positive [...] Past serologies: [facility] panel 08/2019---labs reveal positive anti-SALES REPRESENTATIVE SALES MANAGER antibody which is likely a false positive [...] Past serologies: [facility] panel 08/2019---labs reveal positive anti-SALES REPRESENTATIVE SALES MANAGER antibody which is likely a false positive [...] every day. [facility] panel 08/2019---labs reveal positive anti-SALES REPRESENTATIVE SALES MANAGER antibody which is likely a false positive due to negative ASHLEY. ??Otherwise labs look good. ??No evidence of a new autoimmune connective tissue disease. Cont orencia sq and imuran 100mg po qhs. [place] better on iv orencia, will change from [...] since resolved. [facility] panel 08/2019---labs reveal positive anti-SALES REPRESENTATIVE SALES MANAGER antibody which is likely a false positive [...] of orencia. [facility] panel 08/2019---labs reveal positive anti-SALES REPRESENTATIVE SALES MANAGER antibody which is likely a false positive [...] of orencia. [facility] panel 08/2019---labs reveal positive anti-SALES REPRESENTATIVE SALES MANAGER antibody which is likely a false positive [...] ?? Assessment & Plan (04/23/2019 1:46 PM WIRE WRAPPING MACHINE OPERATOR): High cdai. On orencia IV but [...] citrate. Assessment & Plan (06/03/2020 2:56 PM WIRE WRAPPING MACHINE OPERATOR): Multiple kidney stones for over 10 [...] on file Legal Sex Female 9:24 PM WIRE WRAPPING MACHINE OPERATOR Gender Identity Female 08/14/2022 11:32 [...] HEPATITIS C AB Routine 06/29/2015 2:43 PM WIRE WRAPPING MACHINE OPERATOR from Last 3 Months or Most Recently Relevant to Health Maintenance Results * ThinPrep Pap with HPV (12/24/2018 3:41 PM CDT) 12/24/2018 3:41 PM CDT 12/25/2018 8:54 AM CDT Narrative [facility] - 12/26/2018 2:53 PM CDT [facility] Department of Pathology [address] [place] [id number] Final Report with Addendum Patient Name: ??JULIAN SAUER Address: ??[address] [place] [address], ?? [place], [place] ?? Gender: ??F : ??1975 (Age: 43) Service: ??Laboratory Location: ??Lab Hospital #: ??[id number] Patient Type: ?? Ref Lab Taken: ??12/24/2018 Received: ??12/25/2018 Accessioned:: ??12/26/2018 Reported: ??12/26/2018 Physician(s): Curtis Oseguera M.D. [facility] Diagnosis: Source of Specimen: ? SCREENING IMAGED [...] determined by the Surgical Pathology Department at [facility] as part of an ongoing quality inspector program and in compliance with federally [...] determined by the Surgical Pathology Department [facility]. ??It has not been cleared or approved by the U. S. Food and Drug Administration. us Curtis Oseguera MD LAB CYTOLOGY ORDERABLES Final Result [address] [phone] * Serum Hepatitis C ab (06/29/2015 2:43 PM WIRE WRAPPING MACHINE OPERATOR) HCV ab Non-Reacti ve Non-Reacti ve HISTORICAL RESULTS Serum 06/29/2015 2:43 PM WIRE WRAPPING MACHINE OPERATOR us Miriam VALLE LAB BLOOD ORDERAB LES Final Result HISTORICAL RESULTS from Last 3 Months or Most Recently Relevant to Health Maintenance [place] [facility] Care Teams Online Marketing Coordinator Relationship Specialty Start Date End Date Bhupinder Tobias MD [address] [facility] [address] [place] [address] PCP - General Internal Medicine 06/03/20 Cash Woodruff III, MD [address] [facility] [address] [place] [address] Rheumatology 04/12/17 Jorge Aguiar MD [address] [facility] [address] [place] [address] Consulting Physician Urology 11/10/20 Khoa Arias MD [address] [facility] [address] [place] [address] Referring Physician Gastroenterology 03/20/21
--- NOTE | 2024-05-21 06:38 | P.PNAN_ITS ---
Anes - Initial Pre Proc Eval Procedure: Operation Date: 05/21/24 07:30 Proposed Procedures p Cystoscopy, Bilateral Ureteroscopy, Laser Lithotripsy, Retrograde Pyelography, Stone Extraction, Stent Placement - Jorge Aguiar MD Date/Time: 05/21/24 06:38 Surgeon: Jorge Aguiar MD Pre Op Diagnosis: bilatetal kidney stones Patient Data Age: 49 Gender: F Height: 1.68 m Weight: 102.2 kg Last Vital Signs Temp 36.0 C L 05/21/24 06:10 Pulse 98 05/21/24 06:10 Resp 18 05/21/24 06:10 BP 126/77 05/21/24 06:10 Pulse Ox 100 05/21/24 06:10 O2 Del Method Room Air 05/21/24 06:10 Allergies Allergy/AdvReac Type Severity Reaction Status Date / Time No Known Allergies Allergy Verified 05/21/24 06:18 Home Medications ?Medication ?Instructions ?Recorded ?Confirmed ?Type bupropion HCl 300 mg 24 hr tablet, 300 mg PO DAILY 05/02/20 05/21/24 History extended release (Wellbutrin XL) potassium citrate 15 mEq (1,620 1,620 mg PO BID 05/02/20 05/21/24 History mg) tablet,extended release propranolol 10 mg tablet 10 mg PO QAM 05/02/20 05/21/24 History trazodone 100 mg tablet 100 mg PO HS 05/02/20 05/21/24 History alprazolam 0.5 mg tablet 0.5 mg PO TID PRN Anxiety 09/15/20 05/21/24 History cholecalciferol (vitamin D3) 125 5,000 unit PO DAILY 09/15/20 05/21/24 History mcg (5,000 unit) tablet (Vitamin D3) cyanocobalamin (vitamin B-12) 1,000 mcg PO DAILY 09/15/20 05/21/24 History 1,000 mcg tablet pantoprazole 40 mg tablet,delayed See Rx Instructions .Route 12/20/23 05/21/24 Rx release .COMPLEX #60 tabs ibuprofen 200 mg capsule (Motrin 600 mg (3 x 200 mg) PO Q8H PRN 01/04/24 05/15/24 Rx IB) pain #30 caps sumatriptan succinate 6 mg/0.5 mL See Rx Instructions .Route 02/18/24 05/15/24 Rx subcutaneous pen injector .COMPLEX #2 mL ondansetron HCl 4 mg tablet 4 - 8 mg (1 - 2 x 4 mg) PO Q8H PRN 03/20/24 05/15/24 Rx nausea and vomiting #20 tabs dicyclomine 20 mg tablet 20 mg PO TID PRN abdominal pain 04/20/24 05/15/24 Rx #120 tabs metoclopramide HCl 10 mg tablet See Rx Instructions PO .COMPLEX 04/21/24 05/21/24 Rx (Reglan) nausea and vomiting #30 tabs hydrocodone 5 mg-acetaminophen 325 1 tablet PO Q8H PRN pain #75 tabs 04/23/24 05/15/24 Rx mg tablet benzonatate 200 mg capsule 200 mg PO TID PRN cough #30 caps 04/28/24 05/15/24 Rx duloxetine 30 mg capsule,delayed 30 mg PO DAILY 04/29/24 05/21/24 History release lactulose 20 gram/30 mL oral 20 g (30 mL) PO BID #1,200 mL 05/06/24 05/21/24 Rx solution sucralfate 1 gram tablet See Rx Instructions .Route 05/20/24 Rx .COMPLEX #120 tabs Patient hx anesthesia problems: none Family hx anesthesia problems: none Results Review: All pre-operative results and documents have been reviewed as part of the pre- operative evaluation. [facility] Past Medical History Medical History Aspiration into airway Colon cancer screening Elevated lipase Decreased appetite LLQ pain Arthritis Osteoporosis Psoriasis Excessive thirst UTI (urinary tract infection) IBS (irritable bowel syndrome) Atrial tachycardia Hoarseness Short-term memory loss Chills History of kidney stones Abdominal pain in female Abnormal serum lipase level Abnormal weight gain Acute cystitis without hematuria Acute diverticulitis Acute non-recurrent pansinusitis Acute shoulder pain Adult idiopathic generalized osteoporosis Age-related osteoporosis with current pathological fracture, unspecified ankle and foot, initial encounter for fracture Anemia Anxiety Arthralgia Arthritis of both knees Bilateral tinnitus Body mass index (bmi) 39.0-39.9, adult (01/12/19) Bone spur of left foot Chronic migraine Chronic narcotic use Chronic pain syndrome Cyst of ovary Diarrhea Dietary counseling and surveillance (08/25/15) Diverticulitis of large intestine without perforation or abscess Diverticulosis of intestine, part unspecified, without perforation or abscess with bleeding Duodenal ulcer Dysphagia Dysuria Meredith-Danlos syndrome Epigastric pain Establishing care with new doctor, encounter for Fatigue Fear of flying Fibromyalgia Gastric ulcer Gastroesophageal reflux disease Generalized abdominal pain Generalized anxiety disorder History of dislocation of knee Hyperextension deformity of knee Hyperthyroidism Hypokalemia Hypovitaminosis D Immunosuppressed status Impingement syndrome of right shoulder Irregular menses 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 syndrome with constipation 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 diarrhea retirement use of drug Low TSH level Low back pain Luteal cystic ovary disease Microscopic hematuria Migraine, unspecified, not intractable, without status migrainosus Multinodular goiter Muscle weakness of lower extremity Musculoskeletal pain Nausea Nephrolithiasis Nonintractable migraine Osteoarthritis of spine with radiculopathy, lumbar region Other chronic pain Overweight (11/22/16) PUD (peptic ulcer disease) Pain in both hands Pain of both hip joints Pain of left heel Pneumonia due to infectious organism Polyuria Prepatellar bursitis of both knees Prepatellar bursitis, left knee Rheumatoid arthritis of multiple sites with negative rheumatoid factor Rheumatoid arthritis of unspecified site with involvement of other organs and systems Right lower quadrant abdominal pain Swelling Swelling of finger joint of left hand Thyroid nodule Urinary symptom or sign Urinary tract infection without hematuria Weight loss Yeast vaginitis Surgical History Surgical History History of hysterectomy 2022 History of knee surgery ANUSHA reconstruction. History of lithotripsy x4. Previous section History of colonoscopy History of tonsillectomy Family History Family History Mother Patient's mother is in good health Family history of arthritis Father Patient's father is in good health Family history of alcoholism Family history of arthritis Family history of obesity Family history of chronic obstructive pulmonary disease Sibling Patient's sister is in good health Patient's brother is in good health Grandparent Family history of Alzheimer's disease Family history of lung cancer Other Family history of attention deficit hyperactivity disorder (ADHD) Social History Social History Smoking packs per day: 0.5 Smoking cigarettes per day: 10.0 Years smoked: 20 Smoking pack-years: 10.00 Smoking status: Former smoker Tobacco type: cigarettes Second hand tobacco smoke exposure: Yes Smoking end date: 06/04/12 Alcohol intake: current Drinks per week: 2 Alcohol use details: 2/MONTH Substance use: never Substance use type: does not use Other substance usage details: STOPPED GUMMIES MAY 2023 Do You Feel Safe in your Home?: Yes Lack of Transportation: No Lack of Food: Never True Current Housing: I Have Housing Concerned About Future Housing: No Difficulty Paying Gas/Electric Bills: No Difficulty Paying for Meds: No Currently Unemployed: No Education: Bachelor's Degree Difficulty w/ Childcare or Family Care: No Living arrangements: with family Additional living arrangements comments: AND CHILDREN Occupation/Education: retired 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 Gender identity (if verbalized by the patient): Female Sexual Orientation (if Verbalized by the Patient): Straight or Heterosexual Spiritual care concerns: No Anes - Eval Final PreProcedure Day of Procedure 05/21/24 06:38 Patient weight: obese Heart: regular rate and rhythm Lungs: clear to auscultation Airway: Mallampati scale class II Neurological: alert and oriented Last oral intake: >/= 8 hours ASA classification: III Emergent: no Anesthetic plan: proceed Anesthesia type and monitoring: general LMA and standard monitoring Results Review: All pre-operative results and documents have been reviewed as part of the pre- operative evaluation. Informed Consent: The patient's anesthetic plan and its attendant risks and benefits were discussed with the patient/family/POA. Questions were solicited and answers provided to the satisfaction of the patient/family/POA.
[2024-05-21] MEDS: LACTATED RINGERS 1,000 ML 30 ML IV CONT (06:45)
--- NOTE | 2024-05-21 07:05 | WPDHPUPDATE1 ---
History and Physical Update Update Date/Time: 05/21/24 07:05 History and Physical has been reviewed, including an updated exam of the patient. There are NO changes in the patient's condition. Risks, benefits, and alternatives have been discussed and questions answered. Patient agrees to proceed with procedure.
[2024-05-21] MEDS: ceFAZolin 2 GM/D5W 50 ML 2 GM/50 ML BAG IVPB (07:27)
[2024-05-21] MEDS: LIDOCAINE 2% GEL UROJET 10 ML PKG MUCOUS MEM (07:27)
--- NOTE | 2024-05-21 08:37 | W.PM.PROC2 ---
Procedure Note - Detailed Date of Procedure 05/21/24 Pre-op Diagnosis Bilatetal kidney stones Post-op Diagnosis Same Procedure Performed Cystoscopy, bilateral ureteroscopy with laser lithotripsy renal stones, bilateral retrograde pyelography, right ureteral stent placement Surgeon Jorge Aguiar MD Anesthesia General Description of Procedure Patient is brought to the operative suite where she was prepped and draped in routine sterile fashion while in dorsal lithotomy position after the uneventful induction of a general LMA anesthetic. Cystoscopy was undertaken with a 19 F rigid cystoscope. Bladder neck and urethra endoscopically are endoscopically normal. I 1st turned attention to her right kidney stones. A 0.035 in glidewire was advanced into the right renal pelvis. The distal ureter was dilated with a 8F/10F dilator and a 11 F/ 13 F ureteral access sheath was placed with a safety wire in place (2nd 0.035 glidewire). Ureteroscopy was undertaken with a [employer] digital 7.5 F flexible ureteral scope. Retrograde pyelography was obtained to ensure inspection of all calices. The bulk of her stone burden on the right side is in her lower pole calices. One small stone is extracted with a 1.9 F disposable basket. throughout the remainder of the right kidney there are 6 or 7 smaller stones that are dusted with the 200 micron laser fiber. All pieces are either washed out through the access sheath or deemed to be less than 2 mm in size. I placed a 4.8F variable length right ureteral stent on the right side. A 0.035 in glidewire was advanced into her left kidney. The distal ureter was dilated with an 8F/10F dilator and the digital ureteral scope was placed into her left collecting system. Again a retrograde pyelogram was obtained to ensure inspection of calices. She has less stone burden on the left he also stones identified or treated with the 200 micron laser in a dusting mode. Because of the ease of the manipulation on the left I opted not to place ureteral stent. Stent on the right has a string attached to it for easy removal early next week. Drains Yes Pathology None sent Complications No immediate complications Condition Stable Disposition PACU
[2024-05-21] MEDS: KETOROLAC 30 MG/ML VIAL (*BKC) IV PUSH (09:08)
[2024-05-21] MEDS: oxyCODONE HCL (*CRX) 5 MG TAB IR PO (09:42)
[2024-05-21] MEDS: TAMSULOSIN HCL 0.4 MG CAPSULE PO (10:05)
== END 2024-05-21 10:24 | disposition home or self-care (01) ==
PROVIDERS: PCP Internal Medicine; Visit Provider Urology
PROC: (CPT 52352; principal; 2024-05-21 07:30)
DX: N20.0 Calculus of kidney (principal); D64.9 Anemia, unspecified; F41.9 Anxiety disorder, unspecified; M17.0 Bilateral primary osteoarthritis of knee; G89.4 Chronic pain syndrome; Q79.60 Ehlers-Danlos syndrome, unspecified; K21.9 Gastro-esophageal reflux disease without esophagitis; E05.90 Thyrotoxicosis, unspecified without thyrotoxic crisis or storm; E87.6 Hypokalemia; E55.9 Vitamin D deficiency, unspecified; K58.1 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 syndrome with constipation; F41.0 Panic disorder [episodic paroxysmal anxiety]; I47.19 Other supraventricular tachycardia; R41.3 Other amnesia; M81.8 Other osteoporosis without current pathological fracture; L40.9 Psoriasis, unspecified; D84.9 Immunodeficiency, unspecified; M06.9 Rheumatoid arthritis, unspecified; G43.909 Migraine, unspecified, not intractable, without status migrainosus; M47.26 Other spondylosis with radiculopathy, lumbar region; E66.9 Obesity, unspecified; Z68.36 Body mass index [BMI] 36.0-36.9, adult; Z79.1 Long term (current) use of non-steroidal anti-inflammatories (NSAID); Z79.85 Long-term (current) use of injectable non-insulin antidiabetic drugs; Z79.891 Long term (current) use of opiate analgesic; Z79.899 Other long term (current) drug therapy; Z98.890 Other specified postprocedural states; Z87.891 Personal history of nicotine dependence; Z87.19 Personal history of other diseases of the digestive system; Z80.1 Family history of malignant neoplasm of trachea, bronchus and lung
CPT/HCPCS: 52356; 74420; A9270; C1769; C1894; C2617; J0690; J1100; J1885; J2003; J2250; J2405; J2704; J3010; J7120; Q9966

== ENCOUNTER 2024-06-12 04:42 | Day surgery (SDC) | payer BC, SELFPAY ==
[2024-06-11 14:23] VITALS: BMI 37.1
--- OUTSIDE RECORDS SUMMARY | 2024-06-12 04:47 | XMS_ITS | Clinical Summary ---
Author Organization [facility] Address [address] [place] [address] Care Team Providers Care Sternman Name Role Phone Bhupinder Tobias MD Primary Care Provider [phone] Allergies No known active allergies Medications HYDROcodone-ibup [...] on file Legal Sex Female 12:23 PM [employer] Gender Identity Not on file Sexual Orientation Not on file Last Filed Vital Signs Vital Sign Reading Time Taken Comments Blood Pressure 108/79 03/01/2021 3:00 PM [employer] [employer] Pulse 79 03/01/2021 3:00 PM [employer] Temperature 36.2 C (97.2 F) 03/01/2021 12:34 PM [employer] Respiratory Rate 16 03/01/2021 3:00 PM [employer] [employer] Oxygen Saturation 98% 03/01/2021 3:00 PM [employer] Inhaled Oxygen Concentration - - Weight 86.1 kg (189 lb 13.1 oz) 021 12:34 PM [employer] Height 167.6 cm (5' 6 ) 03/01/2021 12:3 4 PM [employer] Body Mass Index 30.64 03/01/2021 12:34 PM [employer] [employer] Plan of Treatment Health Maintenance Due Date [...] 2024 01/22/2020, 02/05/2018, 01/30/2017, Additional history exists Zoster Vaccines (1 of 2) 2024 Meningococcal B Vaccine Aged Out No l [...] patient's age to complete this topic Insurance [facility] Care Teams Sternman Relationship Specialty Start Date End Date Bhupinder Tobias MD [address] [place] [address] PCP - General INTERNAL MEDICINE 03/01/21
--- OUTSIDE RECORDS SUMMARY | 2024-06-12 04:47 | XMS_ITS | Patient Health Record ---
Author Organization [facility] [employer] [facility] Address [address] [facility] [address] [place] [address] Care Team Providers Care Machine Builder Name Role Phone Jose Zhang DO Primary Care Provider UnavailAlix Sher Unavailable [phone] Mario Diaz Unavailable [phone] Natty Grier Unavailable [phone] Chari Pappas Unavailable [phone] Migration, Provider Unavailable Unavailable Jyoti New Unavailable [phone] Allergies No Known Allergies Results Component Value [...] AM Interpretation: Performing Lab: Notes/Report: UDT Reviewed date:11/20/2023 09:30:02 AM Interpretation: Performing Lab: Notes/Report: THC pos 0 - 50 ng/ml Cocaine neg 0 - 300 ng/ml Amphetamine neg 0 - 1000 ng/ml Buprenorphine (BUP) neg 0 - 10 ng/ml Secobarbital (Bar) neg 0 - 300 ng/ml Oxazepam (BZO) pos 0 - 300 ng/ml 8-bahqxvtgid-1,6-rtasvihk-3, 3-diphenylpyrrolidine (EDDP) neg 0 - 300 ng/ml Methamphetamine (MET) neg 0 - 1000 ng/ml Methylenedioxymethamphetamine (MDMA) neg 0 - 500 ng/ml Morphine (MOP 300/TJD9207) pos 0 - 300 ng/ml Methadone (MTD) neg 0 - 300 ng/ml Phencyclidine (PCP) neg 0 - 25 ng/ml Propoxyphene (PPX) neg 0 - 300 ng/ml Nortriptyline (TCA) neg 0 - 1000 ng/ml Oxycodone pos 0 - 300 ng/ml UDT Reviewed date:01/30/2024 09:33:30 AM Interpretation: Performing Lab: Notes/Report: THC p 0 - 50 ng/ml Cocaine n 0 - 300 ng/ml Amphetamine n 0 - 1000 ng/ml Buprenorphine (BUP) n 0 - 10 ng/ml Secobarbital (Bar) n 0 - 300 ng/ml Oxazepam (BZO) p 0 - 300 ng/ml 4-nveaxkfkej-2,9-lriwtcpy-4, 3-diphenylpyrrolidine (EDDP) n 0 - 300 ng/ml Methamphetamine (MET) n 0 - 1000 ng/ml Methylenedioxymethamphetamine (MDMA) n 0 - 500 ng/ml Morphine (MOP 300/[id number]) n 0 - 300 ng/ml Methadone (MTD) n 0 - 300 ng/ml Phencyclidine (PCP) n 0 - 25 ng/ml Propoxyphene (PPX) n 0 - 300 ng/ml Nortriptyline (TCA) n 0 - 1000 ng/ml Oxycodone n 0 - 300 ng/ml Reason For Referral No Information Medications Medication SIG (Take, Route, Frequency, Duration) Notes Start Date End Date Status Pantoprazole Sodium 40 MG Oral Active Potassium Citrate ER 15 mEq Oral *Pick strength-form from [employer] for eRX* Active ALPRAZolam 0.5 MG 1 [...] Active LUBIPROSTONE 24 MCG CAPSULE *Reorder from [employer] for eRx and Interaction Alerts* Active SUMAtriptan [...] employed?: NoWho is your employer?: I have [employer] and have been ?retired? for 5 years.Marriage and SexualityWhat is your relationship status?: MarriedAre you sexually active?: NoDo you use protection during sex?: NoHow many children do you have?: 5Home and EnvironmentAre there any guns present in your home?: NoAdvance DirectiveDo you have an advance directive?: NoDo you have a medical power of disability attorney?: No Social History Substance UseDo you [...] technical, or vocational programAre you currently employed?: NoWAutobook Now is your employer?: I have [employer] and have been ?retired? for 5 years.Marriage and SexualityWhat is your relationship status?: MarriedAre you sexually active?: NoDo you use protection during sex?: NoHow many children do you have?: 5Home and EnvironmentAre there any guns present in your home?: NoAdvance DirectiveDo you have an advance directive?: NoDo you have a medical power of disability attorney?: No Social History Substance UseDo you [...] technical, or vocational programAre you currently employed?: NoWAutobook Now is your employer?: I have [employer] and have been ?retired? for 5 years.Marriage and SexualityWhat is your relationship status?: MarriedAre you sexually active?: NoDo you use protection during sex?: NoHow many children do you have?: 5Home and EnvironmentAre there any guns present in your home?: NoAdvance DirectiveDo you have an advance directive?: NoDo you have a medical power of disability attorney?: No Social History Substance UseDo you [...] technical, or vocational programAre you currently employed?: NoWAutobook Now is your employer?: I have [employer] and have been ?retired? for 5 years.Marriage and SexualityWhat is your relationship status?: MarriedAre you sexually active?: NoDo you use protection during sex?: NoHow many children do you have?: 5Home and EnvironmentAre there any guns present in your home?: NoAdvance DirectiveDo you have an advance directive?: NoDo you have a medical power of disability attorney?: No Social History Substance UseDo you [...] NoDo you have a medical power of disability attorney?: No Problems Problem Type SNOMED Code ICD Code Onset Dates Problem Status W/U Status Risk Notes Problem Generalized anxiety disorder (58303878) Generalized anxiety disorder (F41.1) 4 Active confirmed Problem Insomnia disorder related to another mental disorder (77425180) 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 Active confirmed Problem Meredith-Danlos syndrome (921034413) 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 Vital Signs Heart Rate 88 /min 04/16/2024 Height-cm 167.64 cm 04/16/2024 Blood pressure diastolic 80 mm Hg 04/16/2024 Weight-kg 102.06 kg 04/16/2024 Height 66.00 in 04/16/2024 Blood pressure systolic 152 mm Hg 04/16/2024 Weight 225.0 lbs 04/16/2024 BMI 36.31 kg/m2 04/16/2024 Encounters Encounter Location Date Provider Diagnosis [facility] [address] [facility] [address] [place] [address] 05/04/2024 Mario Diaz [facility] [address] [facility] [address] [place] [address] 09/11/2023 Chari Pappas Other termite helper (current) drug therapy Z79.899 ; Generalized anxiety disorder F41.1 and Insomnia due to other mental disorder F51.05 [facility] [address] [place] [address] 10/09/2023 Chari Pappas [facility] [address] [place] [address] 11/20/2023 Chari Mian Generalized anxiety disorder F41.1 ; Insomnia due to other mental disorder F51.05 and Other care home (current) drug therapy Z79.899 [facility] [address] [place] [address] 11/21/2023 Jyotimadina Saavedraromán Generalized anxiety disorder F41.1 [facility] [address] [place] [address] 12/05/2023 Jyoti Saavedraliter Generalized anxiety disorder F41.1 [facility] [address] [place] [address] 01/30/2024 Chari Pappas Generalized anxiety disorder F41.1 ; Insomnia due to other mental disorder F51.05 and Other termite helper (current) drug therapy Z79.899 [facility], [facility] [address] [place] [address] 04/16/2024 Alixdonna Sanchez Generalized anxiety disorder F41.1 ; Insomnia due to other mental disorder F51.05 ; 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 and Elevated BP without diagnosis of hypertension R03.0 [facility] [address] [place] [address] 08/29/2023 Provider Migration [facility], [facility] [address] [place] [address] 09/07/2023 Provider Migration [facility], [facility] [address] [place] [address] 09/08/2023 Provider Migration [facility], [facility] [address] [place] [address] 09/11/2023 Provider [facility], [facility] [address] [place] [address] 09/26/2023 Chari Pappas [facility], [facility] [address] [place] [address] 10/14/2023 Natty Grier [facility], [facility] [address] [place] [address] 10/15/2023 Chari 360pinasirCubeacon [facility], [facility] [address] [place] [address] 11/18/2023 Chari Cloud Theory [facility], [facility] [address] [facility] [address] [place] [address] 11/19/2023 Chari Cloud Theory [facility], [facility] [address] [facility] [address] [place] [address] 01/21/2024 Natty Cherrie Generalized anxiety disorder F41.1 [facility], [facility] [address] [facility] [address] [place] [address] 05/04/2024 Mario Diaz [facility], [facility] [address] [facility] [address] [place] [address] 11/18/2023 Chari Cloud Theory [facility], [facility] [address] [facility] [address] [place] [address] 11/18/2023 Chari Cloud Theory [facility], [facility] [address] [facility] [address] [place] [address] 11/18/2023 Chari Cloud Theory [facility], [facility] [address] [facility] [address] [place] [address] 04/02/2024 Assessments Encounter Date Diagnosis (ICD Code) [...] willing to try taper. has been given SD bzo risks handout 11/20/2023 Insomnia due to other mental disorder (ICD-10 - F51.05) r/t anxiety cont trazodone 100mg qhs practice good sleep hygiene 09/11/2023 Generalized anxiety disorder (ICD-10 - F41.1) 09/11/2023 Insomnia due to other mental disorder (ICD-10 - F51.05) 09/11/2023 Other termite helper (current) drug therapy (ICD-10 - Z79.899) 11/21/2023 [...] rheumatoid arthritis Spiritual Beliefs: a mishmash between Jainism, Catholicism.I don't know. 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 - [...] qhs practice good sleep hygiene 11/20/2023 Other care home (current) drug therapy (ICD-10 - Z79.899) UDS consistent with pain management/opi ate, cannabis and alprazolam 01/30/2024 Other care home (current) drug therapy (ICD-10 - Z79.899) 04/16/2024 [...] Of Treatment Next Appt Details Provider Name:Alix Charlene goldman, 06/15/2024 03:45:00 PM, [address], [address], [place], [address], Insurance Providers Payer Name Payer Address Payer Phone Subscriber Number Group Number Insured Name Patient Relationship to Insured Coverage Start Date Coverage End Date [facility] [address] [place] [address] [id number] JULIAN SAUER Self - patient is the insured Medical (General) History Medical History History ICD Code Insomnia disorder related to another men linda disorder Past Psychiatric History: Anxiety Disord er,PTSD essential tremor Mixed irritable bowel syndrome K58.2 RA (rheumatoid arthritis) M06.9 Anemia, unspecified D64.9 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
--- OUTSIDE RECORDS SUMMARY | 2024-06-12 04:47 | XMS_ITS ---
Author Organization [facility] [employer] [facility] Address [facility] [facility] [address] [place] [address] Care Team Providers Care Stud Sheep Farmer Name Role Phone Jose Zhang DO Primary Care Provider UnavailAlix Sher Unavailable [phone] Mario Diaz Unavailable [phone] REASON FOR VISIT N/s First Therapy Social History Sex Assigned At : Social History Observation Description Sex Assigned At Female Encounters En[facility] [place] [address] [facility] [address] [place] [address] 05/04/2024 Mario Diaz Plan Of Treatment Next Appt Details Provider Name:Alix goldman, 06/15/2024 03:45:00 PM, [address], [facility] [address], [place], [address], Progress Notes * JULIAN SAUERDOB:1975 ( 48 yo F)Acc No.[id number]:05/04/2024 Patient: Armando NIRADDIJULIAN :1975 A ge:48 Y S ex:Female Address:[address] [place], [address] * true * Date: Generated for Printi ng/Faxing/eTransmitting on: 0 06/12/2024 04:47 AM 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
--- OUTSIDE RECORDS SUMMARY | 2024-06-12 04:48 | XMS_ITS | Clinical Summary ---
Author Organization [facility] [employer] Address [address] [place] [address] Care Team Providers Care Envelope Sealer Name Role Phone Jonathan Hartman RN Unavailable [phone] Feliciano Dash MD Primary Care Provider [phone] Source Comments [facility],non-owned Affiliates and Associated Physician Practices is amultiple site organization consisting of ambulatory clinics and hospital sitesin [place], [place], [place] and [place]. This disclosure is being madepursuant to the Care Everywhere program and may not contain all information available regarding this patient. Last updated 18.[facility] Allergies Active Allergy Reactions Criticality [...] transdermal route every 24 hours. Obtains from [facility] in [place]. 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 Obtains from [facility] in [place]. 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 [...] 95 02/02/2017 8:16 AM CDT Temperature 36.9 C (98.4 F) 02/02/2017 8:16 AM CDT Respiratory Rate 16 02/02/2017 8:16 AM CDT [...] - 19+ 3-dose series) 1993 PNEUMOCOCCAL VACCINE 50+ (1 of 2 - PCV) 1993 PNEUMOCOCCAL VACCINE (1 of 2 - [...] 184 <200 mg/dL 08/02/2015 10:49 AM CDT [facility] Triglycerides 156(H) <150 mg/dL 08/02/2015 10:49 AM CDT [facility] HDL Cholesterol 43 >40 mg/dL 08/02/2015 10:49 AM CDT [facility] LDL Calculated 110 <130 mg/dL 08/02/2015 10:49 AM CDT [facility] VLDL Calculated 31(H) <=30 mg/dL 08/02/2015 10:49 AM CDT [facility] Chol HDL Ratio 4.3 <4.5 08/02/2015 10:49 AM CDT [facility] LDL/HDL Ratio 2.6 <5.0 08/02/2015 10:49 AM CDT [facility] Blood BLOOD SPECIMEN / Unknown Lab Venipuncture / Unknown 08/02/2015 10:02 AM CDT 08/02/2015 10:13 AM CDT Chucho Hinton MD LAB - CHEMISTRY [facility] Organization Address City/State/[facility] Co de Phone Number [facility] [address] [place] [address] from Last 3 Months or Most Recently Relevant to Health Maintenance Advance Directives * Full Code (Latest Code Status on File) Date Activated Date Inactivated Comments 01/29/2017 7:53 PM 02/02/2017 1:02 PM * Full Code Date Activated Date Inactivated Comments 08/02/2015 1:57 AM 08/05/2015 3:00 PM * Full Code Date Activated Date Inactivated Comments 07/13/2015 10:36 PM 07/16/2015 3:55 PM Care Teams Envelope Sealer Relationship Specialty Start Date End Date Dash, Feliciano B, MD [address] [facility] [address] [facility] [address] [place] [address] PCP - General 07/14/21 Jonathan Hartman, RN Medical Records Secretary 07/14/15
--- OUTSIDE RECORDS SUMMARY | 2024-06-12 04:48 | XMS_ITS | Clinical Summary ---
Author Organization [facility] Address [address] [place] [address] Phone Care Team Providers Care Health Assistant Name Role Phone Isaiah Quiros MD Primary Care Provider [phone] Allergies No known active allergies Medications topiramate [...] tablet Take 300 mg by mouth daily early childhood education coordinator. Active pregabalin (LYRICA) 100 mg Capsule Take [...] Comments Blood Pressure 131/87 04/01/2019 10:31 AM COIL REPAIR TECHNICIAN Pulse 101 04/01/2019 10:31 AM COIL REPAIR TECHNICIAN Temperature 36.4 C (97.6 F) 12/29/2018 12:00 PM CDT Respiratory Rate 18 12/29/2018 12:00 PM CDT Oxygen Saturation 99% 12/29/2018 12:00 PM CDT Inhaled Oxygen Concentration - - Weight 90.5 kg (199 lb 9.6 oz) 04/01/2019 10:31 AM COIL REPAIR TECHNICIAN Height 170.7 cm (5' 7.2 ) 04/01/2019 10:31 AM CS T Body Mass Index 31.08 04/01/2019 10:31 AM COIL REPAIR TECHNICIAN Plan of Treatment Health Maintenance Due Date Last Done Comments HEPATITIS B VACCINES (1 of 3 - 19+ 3-dose series) 04/24 ZOSTER VACCINE (1 of 2) 1993 CERVICAL CANCER SCREENING 2004 BREAST CANCER SCREENING 2014 PNEUMOCOCCAL VACCINE 0-64 YEARS (2 of 2 - PCV) 019 05/10/2017 COLORECTAL SCREENING 2019 Colorectal Cancer Screening 2019 FIT-DNA Q 3 years 2019 FIT/FOBT Q 1 year 2019 Flex Sig/CT Colonography Q 5 years 2019 INFLUENZA VACCINE (#1) 2023 01/30/2017 DTAP/TDAP/TD VACCINES (2 - Td or Tdap) 05/10/2027 Insurance RX [employer] Commercial BCBS BLUE ACCESS/TRUE BLUE PPO BS BLUE ACCESS/TRUE BLUE PPO Advance Directives For more information, please contact: [phone] * Full Code (Latest Code Status on File) Date Activated Date Inactivated Comments 12/27/2018 10:12 AM 12/29/2018 7:43 PM Care Teams Health Assistant Relationship Specialty Start Date End Date Isaiah Quiros MD [address] [place] [address] PCP - General Internal Medicine 04/16/18
--- OUTSIDE RECORDS SUMMARY | 2024-06-12 04:48 | XMS_ITS | Patient Health Record ---
Author Organization [facility] Address [address] [place] [address] Care Team Providers Care It Disaster Recovery Manager Name Role Phone NADINE RUSH Unavailable [phone] Allergies No Known Allergies Reason For Referral Reason EVAL AND TREAT Diagnosis 1 Chronic pain syndrom e (G89.4) Referral Organization [facility] Referring Provider First Name TERESA Referring Provider Last Name KARL Referring Provider Speciality Physician Insurance Investigator Referred Provider Specialty Pain Medicin e Referral Priority Routine Referral Appointment Date 02/25/2024 Social History Tobacco Use: Social History Observation Description Date Details (start date - stop date) Former Smoker NA - NA Tobacco Control (Standard) Question Answer Notes Tobacco use: Former smoker Problems Problem Type SNOMED Code ICD Code Onset Dates Problem Status W/U Status Risk Notes Problem [id number] Chronic pain syndrome (G89.4) Active confirmed Vital Signs Height 66 in 02/25/2024 Patient Reported Normal Blood Pressure Patient Reported Normal Temperature Weight 200 lbs 02/25/2024 Patient Reported Normal Blood Pressure Patient Reported Normal Temperature BMI 32.28 kg/m2 02/25/2024 Patient Reported Normal Blood Pressure Patient Reported Normal Temperature Encounters Encounter Location Date Provider Diagnosis [facility] [address] [place] [address] 02/25/2024 NADINE RUSH Chronic pain syndrom e [...] Insured Coverage Start Date Coverage End Date [facility] [address] [place] [address] [id number] Madalyn Smith Self - patient is the insured Medical (General) History Medical History History ICD Code Meredith Camilla 05/23/1990 Obesity
--- OUTSIDE RECORDS SUMMARY | 2024-06-12 04:48 | XMS_ITS ---
Author Organization [facility] Address [address] [place] [address] Care Team Providers Care Kettle Fry Cook Operator Name Role Phone Jose Zhang DO Primary Care Provider UnavailAlix Sher Unavailable [phone] Allergies No Known Allergies REASON FOR VISIT f/u medication eval Medications Medication SIG (Take, Route, Frequency, Duration) Notes Start Date End Date Status Pantoprazole Sodium 40 MG Oral Active Potassium Citrate ER 15 mEq Oral *Pick strength-form from [employer] for eRX* Active ALPRAZolam 0.5 MG 1 [...] Active LUBIPROSTONE 24 MCG CAPSULE *Reorder from [employer] for eRx and Interaction Alerts* Active Ondansetron [...] NoDo you have a medical power of metal polisher?: No Problems Problem Type SNOMED Code ICD Code Onset Dates Problem Status W/U Status Risk Notes Problem 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 Vital Signs Blood pressure systolic 152 mm Hg 04/16/20 24 Blood pressure diastolic 80 mm Hg 024 Heart Rate 88 /min 04/16/2024 Height 66.00 in 04/16/2024 Weight 225.0 lbs 04/16/2024 BMI 36.31 kg/m2 04/16/2024 Height-cm 167.64 cm 04/16/2024 Weight-kg 102.06 kg 04/16/2024 Encounters [facility] [address] [place] [address] 04/16/2024 Alix Sanchez Generalized anxiety disorder F41.1 [...] Up: 2 Months, Reason: Provider Name:Alix goldman, 06/15/2024 03:45:00 PM, [address], [address], [place], [address], Progress Notes * JULIAN SAUERDOB:1975 ( 48 yo F)Acc No.[id number]:04/16/2024 Patient: JULIAN FREEMAN Provider: Joseph Sanchez :1975 A ge:48 Y S ex:Female Date:04/16/2024 Address:[address] [place], [place] [id number] Pcp:Jose Zhang DO Subjective: * Chief Complaints: * F /u medication eval * HPI: H istory of Presenting Problem: 48 y/o female, , 5 kids (combined), [...] and complications. Has an edg planned for april. Also endorses more anxiety lately for her 18 y/o old and difficulty controllinh his epilepsy. Medications were just changed, hopeful to see good changes from that. sleep is okay, trazodone helpful. Experiences knee [...] relocation. Open to seeing a new therapist. D epression Screening: FERNANDA-7 (2018 Edition) F eeling nervous, anxious, or on edge?More than half the days, N ot being able to stop or control worrying S everal days,?Worrying too much about different things M ore than hafl the days, T rouble relaxing N early every day, B eing so restless that it is hard to sit still N early every day, B ecoming easily annoyed or irritable M ore than half the days, F eeling afraid as if something awful might happen N ot at all, T otal FERNANDA-7 Score 1 3, I f you checked any problems, how difficult have they made it for you to do your work, take care of things at home, or get along with other people? E xtremely difficult, I nterpretation of Total ( 10 to 14) Moderate. C [place]-Suicide Severity Rating Scale: Suicide Risk (CSRS-screener) i n the past one month Have you wished you were or wished you could go to sleep and not wake up? N o, i n the past one month Have you actually had any thoughts of killing yourself? N o, H ave you ever done anything, started to do anything, or prepared to do anything to end your life? N o. D epression screening: PHQ-9 L ittle interest or pleasure in doing things N ot at all, F eeling down, depressed, or hopeless N ot at all, T rouble falling or staying asleep, or sleeping too much S everal days, F eeling tired or having little energy M ore than half the days, P oor appetite or overeating N ot at all, F eeling bad about yourself or that you are a failure, or have let yourself or your family down N ot at all, T rouble concentrating on things, such as reading the newspaper or watching television N ot at all, M oving or speaking so slowly that other people could have noticed; or the opposite, being so fidgety or restless that you have been moving around a lot more than usual N ot at all, T houghts that you would be better off or of hurting yourself in some way N ot at all, T otal Score 3 , I nterpretation M inimal Depression. I ntervention D epression Screening Findings N egative, S uicide Risk Assessment Performed 1 06/17/2023 . P ast Psychiatric Hospitalizations: Previous psychiatric hospitalizations P revious Psychiatric Hospitalization N o. P ast History of Suicidal attempt H ave you ever attempted suicide in the past N o. * ROS: G eneral / Constitutional: Patient complains of f atigue, pain, sleep disturbance.? G astrointestinal: Patient denies n ausea, vomiting, change in bowel habits, stomach problems. N eurologic: Patient complains of t remor. P sychiatric: Patient denies a uditory / visual hallucinations, delusions, suicidal thoughts, Dissociations, involuntary movements. [facility] for details.? * Medical History: * Surgical History: S inus surgery Tonsilectomy/adenoids 04/22/1980Hysterectomy ([id number]) 03/01/2023oopherectomy 12/2023 * Hospitalization/Major Diagno stic Procedure: * Family History: F ather: None. M aternal Aunt: None. M aternal Uncle: None. P aternal Aunt: None.?Paternal Uncle: None. M other: Bipolar Disorder, diagnosed with Mental health disorder. Paternal Grandfather: None. P aternal Grandmother: None. M aternal Grandfather: PTSD. M aternal Grandmother: None. B rother: None. S ister: ADHD. S on: Anxiety Disorder. D aughter: None. 2 brother(s) , 1 sister(s) . 2 son(s) . . * Social History: T obacco Use: T obacco Control (Standard) W hen did you start smoking? 1 991, W hen did you stop smoking? 2 013, H ow long has it been since you last smoked? G reater than 10 years,?Tobacco use: F ormer smoker. M igrated Social History: M igrated Social History: Alcohol Intake: Occasional 09/11/2023,Tobacco Years: Former smoker 09/11/2023. D rug/Alcohol: D rugs H ave you used drugs other than those for medical reasons in the past 12 months??No. A RAHEL-C (Standard) D id you have a drink containing alcohol in the past year? Y es, H ow often did you have six or more drinks on one occasion in the past year? N ever (0 point), H ow many drinks did you have on a typical day when you were drinking in the past year? 1 or 2 drinks (0 point), H ow often did you have a drink containing alcohol in the past year? 2 to 4 times a month (2 points), I nterpretation N egative. M iscellaneous: S afety issues A re there any firearms in the house? N o. O ccupation: Retired [employer]. Advance Care Planning A re you your own decision-maker Y es, D o you have Power of Auto Garage Mechanic for Health or Medical? N o. S ocial History: H oukiran M arital Status: M arried, N umber of Adults in household: 2 , N umber of Children in Household: 1 , L evel of Education: [employer]/Masters/PhD. S ocial History Substance UseDo you or have you [...] employed?: NoWho is your employer?: I have [employer] and have been ?retired? for 5 years.Marriage and SexualityWhat is your relationship status?: MarriedAre you sexually active?: NoDo you use protection during sex?: NoHow many children do you have?: 5Home and EnvironmentAre there any guns present in your home?: NoAdvance DirectiveDo you have an advance directive?: NoDo you have a medical power of metal polisher?: No. * Medications: T akingDULoxetine HCl 60 MG Capsule Delayed Release Particles [...] Notes to Pharmacist: *Reorder from [facility] for eRx and Interaction Alerts*SUMAtriptan Succinate 6 MG/0.5ML Solution Auto-injector Subcutaneous Pantoprazole Sodium 40 MG Tablet Delayed Release Oral Potassium Citrate ER 15 mEq Tablet Extended Release Oral , Notes to Pharmacist: *Pick strength-form from [facility] for eRX*ALPRAZolam 0.5 MG Tablet 1 tablet [...] Notes to Pharmacist: *Reorder from [facility] for eRx and Interaction Alerts*Taking SUMAtriptan Succinate 6 MG/0.5ML Solution Auto-injector Subcutaneous Taking Pantoprazole Sodium 40 MG Tablet Delayed Release Oral Taking Potassium Citrate ER 15 mEq Tablet Extended Release Oral , Notes to Pharmacist: *Pick strength-form from [facility] for eRX*Taking ALPRAZolam 0.5 MG Tablet 1 tablet Oral three times a day As neededTaking DULoxetine HCl 30 MG Capsule Delayed Release Particles 1 capsule Orally Once a day , Notes to Pharmacist: increase, total dose 90mgMedication List reviewed and reconciled with the patient * Allergies: N .K.D.A.no[Allergies Verified] Objective: * Vitals: B P:152/80mm Hg, HR:88/min, Wt:225.0lbs, Wt-k.06 kg, Ht: 66.00 in, Ht-cm: 167.64 cm, BMI:36.31Index, Body Surface Area: 2.18. * Examination: P sychiatry: Appearance: a lert, pleasant, groomed, w ell-nourished and in no acute distress. Abnormal body movements: n one. Affect / mood: a ppropriate, full range. Attention: g ood, normal in conversation. Attitude: c ooperative, open-minded with collaborative approach. Homicidal ideation: n one. Suicidal ideation: n one. Memory status: n o impairment noted. Degree of awareness of surroundings: w ithin normal limits.? Delusions: n o. Hallucinations: n o. Insight: g ood. Intellectual functioning: n o impairment noted. Judgement: g ood. Orientation: a wake, alert and oriented x 3. Psychomotor activity: w ithin normal range. Speech / language: a ppropriate pitch/modulation, clear and coherent, normal rate, volume, and articulation (RVR), proper grammar used. Thought content: a ppropriate. Thought process: i ntact. Assessment: * Assessment: 1. G eneralized anxiety disorder - F41.1 (Primary) 2 . 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 4 . E levated BP without diagnosis of hypertension - R03.0 Assessment and Plan: reports stable mood and [...] sooner if concerns arise Plan: * Treatment: 2. I nsomnia due to other mental disorder Refill traZODone HCl Tablet, 100 MG, 1 tablet at bedtime, Oral, Once a day, 30 days, 30 Tablet, Refills 1. * Procedure Codes: 9 6127 BEHAV ASSMT W/SCORE & DOCD/STAND [id number] VISIT COMPLEXITY INHERENT TO ONGOING CARE RELATED TO A PATIENT'S SINGLE, SERIOUS CONDITION OR A COMPLEX CONDITION * Preventive Medicine: Counseling: B P Management: P RE-HYPERTENSIVE FOLLOW-UP PLAN: F ollow-up 1 month ____, L IFESTYLE RECOMMENDATION: L addy education Recommended Nonpharmacologic Interventions (Lifestyle Modifications) -Weight ReductionA heart-healthy diet , such as Dietary Approaches to Stop Hypertension (DASH) Eating PlanDietary Sodium RestrictionIncreased Physical ActivityModeration in alcohol consumption, R EFERRAL TO ALTERNATIVE / PRIMARY CARE PROVIDER: R eferral to general physician . * Follow Up: 2 Months * Billing Information: * Visit Code: 55642 OFFICE OUTPATIENT VISIT 25 MINUTES DETAILED HISTORY AND EXAM/MODERATE MEDICAL DECISION MAKING. * Procedure Codes: 67834 BEHAV ASSMT W/SCORE & DOCD/STAND INSTRUMENT. G2211 VISIT COMPLEXITY INHERENT TO ONGOING CARE RELATED TO A PATIENT'S SINGLE, SERIOUS CONDITION OR A COMPLEX CONDITION. * S CUT SAW OPERATOR Electronically co-signed by Alix Sanchez on 04/28/2024 at 05:16 PM CROSS CUT SAW OPERATOR Sign off status: Completed true * Provider: Joseph Sanchez Date: 06/17/2023 Generated for Tree regalado/Caryl/Dayna on: 0 06/12/2024 04:47 AM CROSS CUT SAW OPERATOR History and Physical Notes * HPI (History [...] of Total: (10 to 14) Mode rate [place]-Suicide Severity Rating Scale Suicide Risk (CSRS-screener) in the past one month Have you wished you were or wished you could go to sleep and not wake up?: No in the past one month Have y ou actually had any thoughts of killing yourself?: No Have you ever done anything, started to do [...]
--- OUTSIDE RECORDS SUMMARY | 2024-06-12 04:48 | XMS_ITS | Referral Summary ---
Author Organization [id number] Address [address] [place] [address] Phone Care Team Providers Care Capacitor Assembler Name Role Phone Kumar CARRILLO MD, John J. Unavailable [phone] Bhupinder Tobias MD Primary Care Provider [phone] Jorge Aguiar MD Unavailable [phone] Khoa Arias MD Unavailable [phone] Allergies No known active allergies Medications SUMAtriptan [...] (08/30/2021): Added automatically from request for surgery [id number] Abdominal pain 03/31/2021 Assessment & Plan (06/28/2021 10:08 AM [employer] PRODUCT DEVELOPMENT MANAGER): Recently dx with mild pancreatitis. Needs lipase/amylase rechecked. Still has some upper abd pain. Advised pt to f/u with GI also. Assessment & Plan (06/19/2021 8:52 AM BIOFUEL[employer] PRODUCT DEVELOPMENT MANAGER): Had abd pain early this month, check amyl/lip and ua. Pain has resolved. Assessment & Plan (05/05/2021 10:13 PM BIOFUEL[employer] PRODUCT DEVELOPMENT MANAGER): Having abd pain, bloating, constipation. On meds for IBS and also using suppositories to have BM. Incidental findings of mesenteric fat stranding (adenitis or panniculitis) on abd CT. Awaiting further eval by Dr. Arias. Assessment & Plan (03/31/2021 8:44 AM B[employer] PRODUCT DEVELOPMENT MANAGER): Elevated lipase. Imuran stopped. Pt advised to [...] 04/23/2019 Assessment & Plan (03/24/2020 7:29 AM BIOFUELS PRODUCT DEVELOPMENT MANAGER): Normal serum immunoglobulins. Assessment & Plan (01/21/2020 [...] immunoglobulins. Assessment & Plan (04/23/2019 1:46 PM BIOFUELS PRODUCT DEVELOPMENT MANAGER): Check serum immunoglobulins. Osteoporosis without current pathological fractu re 09/18/2018 Assessment & Plan (08/10/2021 8:09 AM CDT): bds checked by pcp in past, is taking ca and vit d and pcp checked vit D and PTH per pt was wnl. Her pcp started her on alendronate 70mg po qweek. Taking ca + vit d 1200mg qd. Assessment & Plan (06/15/2021 10:46 AM BIOFUEL[employer] PRODUCT DEVELOPMENT MANAGER): bds checked by pcp in past, is taking ca and vit d and pcp checked vit D and PTH per pt was wnl. Her pcp started her on alendronate 70mg po qweek. Taking ca + vit d 1200mg qd. Assessment & Plan (06/09/2021 8:30 AM BIOFUELS PRODUCT DEVELOPMENT MANAGER): bds checked by pcp in past, is taking ca and vit d and pcp checked vit D and PTH per pt was wnl. Her pcp started her on alendronate 70mg po qweek. Taking ca + vit d 1200mg qd. Assessment & Plan (05/04/2021 8:19 AM BIO[employer]EL[employer] PRODUCT DEVELOPMENT MANAGER): bds checked by pcp in past, is [...] qd. Assessment & Plan (06/03/2020 7:38 AM BIO[employer]ELS PRODUCT DEVELOPMENT MANAGER): bds checked by pcp in past, is taking ca and vit d and pcp checked vit D and PTH per pt was wnl. Her pcp started her on alendronate 70mg po qweek. Taking ca + vit d 1200mg qd. Assessment & Plan (03/25/2020 8:34 AM BIO[employer]ELS PRODUCT DEVELOPMENT MANAGER): bds checked by pcp in past, is taking ca and vit d and pcp checked vit D and PTH per pt was wnl. Her pcp started her on alendronate 70mg po qweek. Taking ca + vit d 1200mg qd. Assessment & Plan (03/24/2020 7:29 AM BIO[employer]ELS PRODUCT DEVELOPMENT MANAGER): bds checked by pcp in past, is [...] qd. Assessment & Plan (04/20/2019 4:56 PM B[employer] PRODUCT DEVELOPMENT MANAGER): bds checked by pcp in past, is [...] pcp. Assessment & Plan (06/03/2020 7:37 AM BIO[employer]ELS PRODUCT DEVELOPMENT MANAGER): Was advised in past to get chest CT to r/o aortic aneurysm, to discuss with pcp. Assessment & Plan (03/25/2020 8:33 AM BIOFUELS PRODUCT DEVELOPMENT MANAGER): Was advised in past to get chest CT to r/o aortic aneurysm, to discuss with pcp. Assessment & Plan (03/24/2020 7:29 AM BIOFUELS PRODUCT DEVELOPMENT MANAGER): Was advised in past to get chest [...] pcp. Assessment & Plan (04/20/2019 4:57 PM BIOFUELS PRODUCT DEVELOPMENT MANAGER): Advised to get chest CT to r/o aortic aneurysm, to discuss with pcp. Assessment & Plan (10/31/2018 7:38 AM CDT): Advised to get chest CT to r/o aortic aneurysm, to discuss with pcp. Encounter for long-term (current) use of medicat ions 01/31/2017 Assessment & Plan (05/28/2022 8:07 AM BIO[employer]ELS PRODUCT DEVELOPMENT MANAGER): Quant gold neg 12/2019 Hep B and [...] showed osteoporosis [facility] 08/2019---[facility] labs reveal positive anti-LIME KILN TENDER antibody which is likely a false positive due to negative ASHLEY. Her father had psoriasis, pt changed from ra to PsA on 03/25/2020. Assessment & Plan (02/26/2022 8:16 AM BIOFUELS PRODUCT DEVELOPMENT MANAGER): Quant gold neg 12/2019 Hep B and [...] showed osteoporosis [facility] 08/2019---[facility] labs reveal positive anti-LIME KILN TENDER antibody which is likely a false positive due to negative ASHLEY. Her father had psoriasis, pt changed from ra to PsA on 03/25/2020. Assessment & Plan (12/11/2021 1:10 PM CDT): [...] showed osteoporosis [facility] 08/2019---[facility] labs reveal positive anti-LIME KILN TENDER antibody which is likely a false positive due to negative ASHLEY. Her father had psoriasis, pt changed from ra to PsA on 03/25/2020. Assessment & Plan (12/08/2021 3:15 PM CDT): [...] showed osteoporosis [facility] 08/2019---[facility] labs reveal positive anti-LIME KILN TENDER antibody which is likely a false positive due to negative ASHLEY. Her father had psoriasis, pt changed from ra to PsA on 03/25/2020. Assessment & Plan (09/11/2021 11:04 AM CDT): [...] showed osteoporosis [facility] 08/2019---[facility] labs reveal positive anti-LIME KILN TENDER antibody which is likely a false positive due to negative ASHLEY. Her father had psoriasis, pt changed from ra to PsA on 03/25/2020. Assessment & Plan (08/10/2021 8:09 AM CDT): [...] showed osteoporosis [facility] 08/2019---[facility] labs reveal positive anti-LIME KILN TENDER antibody which is likely a false positive due to negative ASHLEY. Her father had psoriasis, pt changed from ra to PsA on 03/25/2020. Assessment & Plan (06/28/2021 8:44 AM BIOFUELS PRODUCT DEVELOPMENT MANAGER): Quant gold neg 12/2019 Hep B and [...] showed osteoporosis [facility] 08/2019---[facility] labs reveal positive anti-LIME KILN TENDER antibody which is likely a false positive due to negative ASHLEY. Her father had psoriasis, pt changed from ra to PsA on 03/25/2020. Assessment & Plan (06/15/2021 10:44 AM BIOFUELS PRODUCT DEVELOPMENT MANAGER): Quant gold neg 12/2019 Hep B and [...] showed osteoporosis [facility] 08/2019---[facility] labs reveal positive anti-LIME KILN TENDER antibody which is likely a false positive due to negative ASHLEY. Her father had psoriasis, pt changed from ra to PsA on 03/25/2020. Assessment & Plan (06/09/2021 10:15 AM BIOFUELS PRODUCT DEVELOPMENT MANAGER): Quant gold neg 12/2019 Hep B and [...] showed osteoporosis [facility] 08/2019---[facility] labs reveal positive anti-LIME KILN TENDER antibody which is likely a false positive due to negative ASHLEY. Her father had psoriasis, pt changed from ra to PsA on 03/25/2020. Assessment & Plan (06/09/2021 8:29 AM BIOFUELS PRODUCT DEVELOPMENT MANAGER): Quant gold neg 12/2019 Hep B and [...] showed osteoporosis [facility] 08/2019---[facility] labs reveal positive anti-LIME KILN TENDER antibody which is likely a false positive due to negative ASHLEY. Her father had psoriasis, pt changed from ra to PsA on 03/25/2020. Assessment & Plan (05/04/2021 8:19 AM BIOFUELS PRODUCT DEVELOPMENT MANAGER): Quant gold neg 12/2019 Hep B and [...] showed osteoporosis [facility] 08/2019---[facility] labs reveal positive anti-LIME KILN TENDER antibody which is likely a false positive due to negative ASHLEY. Her father had psoriasis, pt changed from ra to PsA on 03/25/2020. Assessment & Plan (03/31/2021 9:20 AM BIOFUELS PRODUCT DEVELOPMENT MANAGER): Quant gold neg 12/2019 Hep B and [...] showed osteoporosis [facility] 08/2019---[facility] labs reveal positive anti-LIME KILN TENDER antibody which is likely a false positive due to negative ASHLEY. Her father had psoriasis, pt changed from ra to PsA on 03/25/2020. Assessment & Plan (02/06/2021 8:31 AM CDT): [...] showed osteoporosis [facility] 08/2019---[facility] labs reveal positive anti-LIME KILN TENDER antibody which is likely a false positive due to negative ASHLEY. Her father had psoriasis, pt changed from ra to PsA on 03/25/2020. Assessment & Plan (11/07/2020 3:44 PM CDT): [...] showed osteoporosis [facility] 08/2019---[facility] labs reveal positive anti-LIME KILN TENDER antibody which is likely a false positive due to negative ASHLEY. Her father had psoriasis, pt changed from ra to PsA on 03/25/2020. Assessment & Plan (08/08/2020 8:17 AM CDT): [...] showed osteoporosis [facility] 08/2019---[facility] labs reveal positive anti-LIME KILN TENDER antibody which is likely a false positive due to negative ASHLEY. Her father had psoriasis, pt changed from ra to PsA on 03/25/2020. Assessment & Plan (07/18/2020 8:27 AM CDT): [...] showed osteoporosis [facility] 08/2019---[facility] labs reveal positive anti-LIME KILN TENDER antibody which is likely a false positive due to negative ASHLEY. Her father had psoriasis, pt changed from ra to PsA on 03/25/2020. Assessment & Plan (06/03/2020 2:56 PM BIOFUELS PRODUCT DEVELOPMENT MANAGER): Quant gold neg 12/2019 Hep B and [...] showed osteoporosis [facility] 08/2019---[facility] labs reveal positive anti-LIME KILN TENDER antibody which is likely a false positive due to negative ASHLEY. Her father had psoriasis, pt changed from ra to PsA on 03/25/2020. Assessment & Plan (03/25/2020 3:03 PM BIOFUELS PRODUCT DEVELOPMENT MANAGER): Quant gold neg 12/2019 HLA B27 negative [...] showed osteoporosis [facility] 08/2019---[facility] labs reveal positive anti-LIME KILN TENDER antibody which is likely a false positive due to negative ASHLEY. Her father had psoriasis, pt changed from ra to PsA on 03/25/2020. Assessment & Plan (03/24/2020 7:28 AM BIOFUELS PRODUCT DEVELOPMENT MANAGER): Quant gold neg 12/2019 HLA B27 negative [...] showed osteoporosis [facility] 08/2019---[facility] labs reveal positive anti-LIME KILN TENDER antibody which is likely a false positive due to negative ASHLEY. Assessment & Plan (02/19/2020 8:36 AM CDT): [...] showed osteoporosis [facility] 08/2019---[facility] labs reveal positive anti-LIME KILN TENDER antibody which is likely a false positive due to negative ASHLEY. Assessment & Plan (01/21/2020 1:08 PM CDT): Quant gold neg 10/2018. TPMT nl 17 Weight loss with imuran, stopped it 01/2017 Mtx stopped due to side effects 2017 Failed humira Plaquenil failure Imuran caused weight loss 2017, TPMT wnl at 17 in 2016 Hep B and C neg 2015 Failed Enbrel and humira TPMT wnl 06/2016 BDS done by pcp 2019 and it showed osteoporosis [facility] 08/2019---[facility] labs reveal positive anti-LIME KILN TENDER antibody which is likely a false positive due to negative ASHLEY. Assessment & Plan (01/07/2020 12:29 PM CDT): [...] showed osteoporosis [facility] 08/2019---[facility] labs reveal positive anti-LIME KILN TENDER antibody which is likely a false positive due to negative ASHLEY. Assessment & Plan (12/23/2019 3:40 PM CDT): [...] showed osteoporosis [facility] 08/2019---[facility] labs reveal positive anti-LIME KILN TENDER antibody which is likely a false [...] showed osteoporosis [facility] 08/2019---[facility] labs reveal positive anti-LIME KILN TENDER antibody which is likely a false positive due to negative ASHLEY. Assessment & Plan (10/19/2019 8:07 AM CDT): [...] by pcp 2019 and it showed osteoporosis Assessment & Plan (09/10/2019 7:31 AM CDT): [...] by pcp 2018 and it showed osteoporosis Assessment & Plan (07/10/2019 12:30 PM CDT): [...] by pcp 2018 and it showed osteoporosis Assessment & Plan (04/20/2019 4:59 PM BIOFUELS PRODUCT DEVELOPMENT MANAGER): Quant gold neg 10/2018. TPMT nl 17 Weight loss with imuran, stopped it 01/2017 Failed humira Plaquenil failure Imuran caused weight loss 2016, TPMT wnl at 17 in 2016 Hep B and C neg 2016 Failed Enbrel and humira TPMT wnl 06/2016 BDS done by pcp 2018 and it showed osteoporosis Assessment & Plan (10/31/2018 7:37 AM CDT): Quant gold neg 10/2018. TPMT nl 17 Weight loss with imuran, stopped it 01/2017 Failed humira Plaquenil failure Imuran caused weight loss 2016 Hep B and C neg 2016 Failed Enbrel and humira TPMT wnl 06/2016 BDS done by pcp 2018 and it showed osteoporosis Abnormal LFTs 01/31/2017 Hypermobile joints 01/31/2017 Psoriatic arthritis 01/31/2017 Assessment & Plan (05/28/2022 8:05 AM BIOFUELS PRODUCT DEVELOPMENT MANAGER): Images from the original note were not included. Had orencia infusion 05/02/2022. Continue orencia monotherapy. Off arava due to lipase elevation. Seeing gi at [facility] now. [place] and egd utd and nl in past year per pt. Had a nl pancreatic US recently with gi. Past serologies: [facility] panel 08/2019---labs reveal positive anti-LIME KILN TENDER antibody which is likely a false positive due to negative ASHLEY. RF neg but has a possible family hx of psoriatic arthritis (father) so if she develops psoriasis diagnosis will change to psoriatic arthritis. Rt hand US 09/2019 showed: F/u 1 month. Assessment & Plan (02/26/2022 12:12 PM BIO[employer]ELS PRODUCT DEVELOPMENT MANAGER): Images from the original note were not included. High cdai. Her orencia is scheduled tomorrow. Continue orencia monotherapy. Off arava due to lipase elevation. Seeing gi at [facility] now. [place] and egd utd and nl in past year per pt. Had a nl pancreatic US recently with gi. She could be flaring up since her orencia is due tomorrow, overall she still feels that it is helping her joints. Past serologies: [facility] panel 08/2019---labs reveal positive anti-LIME KILN TENDER antibody which is likely a false positive due to negative ASHLEY. RF neg but has a possible family hx of psoriatic arthritis (father) so if she develops psoriasis diagnosis will change to psoriatic arthritis. Rt hand US 09/2019 showed: F/u 1 month. Assessment & Plan (12/11/2021 1:09 [...] no complications or infections. Seeing gi at [facility] now for her elevated lipase. [place] and egd utd and nl in past year per pt. If labs stable will restart low dose arava 10mg po every day. To stay off orencia until recovered from rt knee surgery. Past serologies: [facility] panel 08/2019---labs reveal positive anti-LIME KILN TENDER antibody which is likely a false positive due to negative ASHLEY. RF neg but has a possible family hx of psoriatic arthritis (father) so if she develops psoriasis diagnosis will change to psoriatic arthritis. Rt hand US 09/2019 showed: F/u 1 month. Assessment & Plan (12/08/2021 3:16 PM CDT): Images from the original note were not included. High cdai. Pt can restart orencia but will hold off restarting arava due to hx of elevated lipase, still being evaluated by GI. Her orencia is scheduled tomorrow. Seeing gi at [facility] now. [place] and egd utd and nl in past year per pt. Due to burden of dz will give her a short course of oral prednisone. Discussed risks and se of systemic steroids. Past serologies: [facility] panel 08/2019---labs reveal positive anti-LIME KILN TENDER antibody which is likely a false positive due to negative ASHLEY. RF neg but has a possible family hx of psoriatic arthritis (father) so if she develops psoriasis diagnosis will change to psoriatic arthritis. Rt hand US 09/2019 showed: F/u 1 month. Assessment & Plan (09/11/2021 12:59 PM CDT): Images from the original note were not included. High cdai. Pt can restart orencia but will hold off restarting arava due to hx of elevated lipase, still being evaluated by GI. Her orencia is scheduled tomorrow. Seeing gi at [facility] now. [place] and egd utd and nl in past year per pt. Due to burden of dz will give her a short course of oral prednisone. Discussed risks and se of systemic steroids. Past serologies: [facility] panel 08/2019---labs reveal positive anti-LIME KILN TENDER antibody which is likely a false positive due to negative ASHLEY. RF neg but has a possible family hx of psoriatic arthritis (father) so if she develops psoriasis diagnosis will change to psoriatic arthritis. Rt hand US 09/2019 showed: F/u 1 month. Assessment & Plan (08/10/2021 1:02 PM CDT): Images from the original note were not included. Mod cdai. Pt can restart orencia but will hold off restarting arava due to hx of elevated lipiase. Advised pt to see dr yepez and her gi dr arias for her pancreatitis . [place] and egd utd and nl in past year per pt. Seen with dr woodruff today. Past serologies: [facility] panel 08/2019---labs reveal positive anti-LIME KILN TENDER antibody which is likely a false positive due to negative ASHLEY. RF neg but has a possible family hx of psoriatic arthritis (father) so if she develops psoriasis diagnosis will change to psoriatic arthritis. Rt hand US 09/2019 showed: F/u 1 month. Assessment & Plan (06/28/2021 10:22 AM B[employer] PRODUCT DEVELOPMENT MANAGER): Images from the original note were not [...] Past serologies: [facility] panel 08/2019---labs reveal positive anti-LIME KILN TENDER antibody which is likely a false positive due to negative ASHLEY. RF neg but has a possible family hx of psoriatic arthritis (father) so if she develops psoriasis diagnosis will change to psoriatic arthritis. Rt hand US 09/2019 showed: F/u 1 month. Assessment & Plan (06/15/2021 10:46 AM B[employer] PRODUCT DEVELOPMENT MANAGER): Images from the original note were not [...] Past serologies: [facility] panel 08/2019---labs reveal positive anti-LIME KILN TENDER antibody which is likely a false positive due to negative ASHLEY. RF neg but has a possible family hx of psoriatic arthritis (father) so if she develops psoriasis diagnosis will change to psoriatic arthritis. Rt hand US 09/2019 showed: F/u 1 month. Assessment & Plan (06/09/2021 10:16 AM B[employer]ELS PRODUCT DEVELOPMENT MANAGER): Images from the original note were not [...] Past serologies: [facility] panel 08/2019---labs reveal positive anti-LIME KILN TENDER antibody which is likely a false positive due to negative ASHLEY. RF neg but has a possible family hx of psoriatic arthritis (father) so if she develops psoriasis diagnosis will change to psoriatic arthritis. Rt hand US 09/2019 showed: F/u 1 month. Assessment & Plan (06/09/2021 8:29 AM B[employer]S PRODUCT DEVELOPMENT MANAGER): Images from the original note were not [...] Past serologies: [facility] panel 08/2019---labs reveal positive anti-LIME KILN TENDER antibody which is likely a false positive due to negative ASHLEY. RF neg but has a possible family hx of psoriatic arthritis (father) so if she develops psoriasis diagnosis will change to psoriatic arthritis. Rt hand US 09/2019 showed: F/u 1 month. Assessment & Plan (05/05/2021 10:11 PM B[employer]S PRODUCT DEVELOPMENT MANAGER): Images from the original note were not [...] Past serologies: [facility] panel 08/2019---labs reveal positive anti-LIME KILN TENDER antibody which is likely a false positive due to negative ASHLEY. RF neg but has a possible family hx of psoriatic arthritis (father) so if she develops psoriasis diagnosis will change to psoriatic arthritis. Rt hand US 09/2019 showed: F/u 1 month. Assessment & Plan (03/31/2021 9:24 AM B[employer] PRODUCT DEVELOPMENT MANAGER): Images from the original note were not [...] Past serologies: [facility] panel 08/2019---labs reveal positive anti-LIME KILN TENDER antibody which is likely a false positive due to negative ASHLEY. RF neg but has a possible family hx of psoriatic arthritis (father) so if she develops psoriasis diagnosis will change to psoriatic arthritis. Rt hand US 09/2019 showed: Assessment & Plan (02/06/2021 2:54 PM CDT): [...] Past serologies: [facility] panel 08/2019---labs reveal positive anti-LIME KILN TENDER antibody which is likely a false positive due to negative ASHLEY. RF neg but has a possible family hx of psoriatic arthritis (father) so if she develops psoriasis diagnosis will change to psoriatic arthritis. Rt hand 09/2019 showed: Assessment & Plan (11/07/2020 3:45 PM CDT): [...] Past serologies: [facility] panel 08/2019---labs reveal positive anti-LIME KILN TENDER antibody which is likely a false positive due to negative ASHLEY. RF neg but has a possible family hx of psoriatic arthritis (father) so if she develops psoriasis diagnosis will change to psoriatic arthritis. Rt hand 09/2019 showed: Assessment & Plan (08/08/2020 3:35 PM CDT): [...] Past serologies: [facility] panel 08/2019---labs reveal positive anti-LIME KILN TENDER antibody which is likely a false positive due to negative ASHLEY. RF neg but has a possible family hx of psoriatic arthritis (father) so if she develops psoriasis diagnosis will change to psoriatic arthritis. Rt [facility] 09/2019 showed: Assessment & Plan (07/18/2020 8:24 AM CDT): Images from the original note were not included. High cdai. On imuran to 100mg bid and Stelara. Discussed potential se and risks of stelara tx. To see her gi for her diarrhea, she is due for colonoscopy. Continue imuran. To get covid 19 vaccine when available. Past serologies: [facility] panel 08/2019---labs reveal positive anti-LIME KILN TENDER antibody which is likely a false positive due to negative ASHLEY. RF neg but has a possible family hx of psoriatic arthritis (father) so if she develops psoriasis diagnosis will change to psoriatic arthritis. Rt [facility] 09/2019 showed: Assessment & Plan (06/03/2020 5:27 PM B[employer]FU[employer] PRODUCT DEVELOPMENT MANAGER): Images from the original note were not [...] Past serologies: [facility] panel 08/2019---labs reveal positive anti-LIME KILN TENDER antibody which is likely a false positive due to negative ASHLEY. RF neg but has a possible family hx of psoriatic arthritis (father) so if she develops psoriasis diagnosis will change to psoriatic arthritis. Rt [facility] 09/2019 showed: Assessment & Plan (03/25/2020 3:01 PM B[employer]FUELS PRODUCT DEVELOPMENT MANAGER): Images from the original note were not [...] Past serologies: [facility] panel 08/2019---labs reveal positive anti-LIME KILN TENDER antibody which is likely a false positive due to negative ASHLEY. RF neg but has a possible family hx of psoriatic arthritis (father) so if she develops psoriasis diagnosis will change to psoriatic arthritis. Rt [facility] 09/2019 showed: Assessment & Plan (03/24/2020 7:29 AM B[employer] PRODUCT DEVELOPMENT MANAGER): Images from the original note were not included. Bernardino zapien Wants to go back to sq orencia, gave pt 1 mo of samples and will start approval. Can't come in for iv orencia, her dad is on hospice. Increase imuran to 100mg bid, check cbc/cmp in 2 weeks and f/u in 1month. Past serologies: [facility] panel 08/2019---labs reveal positive anti-LIME KILN TENDER antibody which is likely a false positive due to negative ASHLEY. RF neg but has a possible family hx of psoriatic arthritis (father) so if she develops psoriasis diagnosis will change to psoriatic arthritis. Rt [facility] 09/2019 showed: Assessment & Plan (02/19/2020 11:34 AM CDT): Bernardino zapien Wants to go back to sq orencia, gave pt 1 mo of samples and will start approval. Can't come in for iv orencia, her dad is on hospice. Increase imuran to 100mg bid, check cbc/cmp in 2 weeks and f/u in 1month. Past serologies: [facility] panel 08/2019---labs reveal positive anti-LIME KILN TENDER antibody which is likely a false positive due to negative ASHLEY. RF neg but has a possible family hx of psoriatic arthritis (father) so if she develops psoriasis diagnosis will change to psoriatic arthritis. Rt [facility] 09/2019 showed: Assessment & Plan (01/22/2020 12:51 PM CDT): Images from the original note were not included. [place] zapien, improved from last time although pt still [...] Past serologies: [facility] panel 08/2019---labs reveal positive anti-LIME KILN TENDER antibody which is likely a false positive due to negative ASHLEY. RF neg but has a possible family hx of psoriatic arthritis (father) so if she develops psoriasis diagnosis will change to psoriatic arthritis. Rt hand US 09/2019 showed: Assessment & Plan (01/18/2020 2:50 PM CDT): Images from the original note were not included. High cdai. Due to burden of dz will give her 100mg of triamcinolone IM today, discussed risks and se of systemic steroids, she is to watch carbs in t(denies hx of dm2) and take ca + vit d 1200mg po every day. [facility] panel 08/2019---labs reveal positive anti-LIME KILN TENDER antibody which is likely a false positive due to negative ASHLEY. Otherwise labs look good. No evidence of a new autoimmune connective tissue disease. Cont orencia sq and imuran 100mg po qhs. [place] better on iv orencia, will change from sq to iv orencia if approved by insurance. RF neg but has a possible family hx of psoriatic arthritis (father) so if she develops psoriasis diagnosis will change to psoriatic arthritis. Rt hand US 09/2019 showed: Assessment & Plan (12/23/2019 3:48 PM CDT): High cdai. Several swollen and tender joints noted on peripheral exam today. Notes benefit with Orencia but held last week due to fevers and possible COVID-19 exposure. Patient tested negative for COVID-19. Fevers have since resolved. [facility] panel 08/2019---labs reveal positive anti-LIME KILN TENDER antibody which is likely a false positive due to negative ASHLEY. Otherwise labs look good. No evidence of a new autoimmune connective tissue [...] of orencia. [facility] panel 08/2019---labs reveal positive anti-LIME KILN TENDER antibody which is likely a false positive due to negative ASHLEY. Otherwise labs look good. No evidence of a new autoimmune connective tissue disease. Cont treatment plan RF neg but has a possible family hx of psoriatic arthritis (father) so if she develops psoriasis diagnosis will change to psoriatic arthritis. Rt hand US 09/2019 showed: Assessment & Plan (10/19/2019 9:50 AM CDT): [...] of orencia. [facility] panel 08/2019---labs reveal positive anti-LIME KILN TENDER antibody which is likely a false positive due to negative ASHLEY. Otherwise labs look good. No evidence of a new autoimmune connective tissue disease. Cont treatment plan RF neg but has a possible family hx of psoriatic arthritis (father) so if she develops psoriasis diagnosis will change to psoriatic arthritis. Rt hand US 09/2019 showed: Assessment & Plan (09/10/2019 10:44 AM CDT): [...] Se of systemic steroid discussed with pt. Assessment & Plan (07/10/2019 12:31 PM CDT): [...] to psoriatic arthritis. Labs stable 08/01/18.TPMT wnl. Assessment & Plan (04/23/2019 1:46 PM BIOFUELS PRODUCT DEVELOPMENT MANAGER): High cdai. On orencia IV but has [...] to psoriatic arthritis. Labs stable 08/01/18.TPMT wnl. Assessment & Plan (10/31/2018 2:11 PM CDT): Mod cdai. Orencia IV approved by insurance. Had 3 infusions without any se. Will continue present meds. RF neg but has a possible family hx of psoriatic arthritis (father) so if she develops psoriasis diagnosis will change to psoriatic arthritis. Labs stable 08/01/18.TPMT wnl. Migraine 06/29/2015 Overview (07/26/2016): Migraines Diverticulosis of [...] citrate. Assessment & Plan (06/03/2020 2:56 PM BIOFUELS PRODUCT DEVELOPMENT MANAGER): Multiple kidney stones for over 10 yrs, 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 Urologist is keepin tabs on this. Urologist has him on potassium citrate. Urinary tract infection 09/09/2014 Immunizations Immunization Administration Dates Next Due Influenza, Quadrivalent, Dali [...] on file Legal Sex Female 9:24 PM BIOFUELS PRODUCT DEVELOPMENT MANAGER Gender Identity Female 08/14/2022 11:32 AM CDT Sexual Orientation Straight 02/13/2023 7: 01 AM CDT Last Filed Vital Signs Vital Sign Reading Time Taken Comments Blood Pressure 111/81 07/03/2023 1:30 PM CDT Pulse 91 07/03/2023 1:30 PM CDT Temperature 36.3 C (97.4 F) 07/03/2023 7:28 AM CDT Respiratory Rate 17 07/03/2023 1:30 PM CDT [...] HEPATITIS C AB Routine 06/29/2015 2:43 PM BIOFUELS PRODUCT DEVELOPMENT MANAGER from Last 3 Months or Most Recently Relevant to Health Maintenance Results * ThinPrep Pap with HPV (12/24/2018 3:41 PM CDT) 12/24/2018 3:41 PM CDT 12/25/2018 8:54 AM CDT [facility] - 12/26/2018 2:53 PM CDT [facility] Department of Pathology [address] [place] [address], [place] [address] Final Report with Addendum Patient Name: JULIAN SAUER Address: [address] [place] [address] Gender: F : 1975 (Age: 43) Service: Laboratory Location: Lab [facility] #: [id number] Patient Type: CH Ref Lab Taken: 12/24/2018 Received: 12/25/2018 Accessioned:: 12/26/2018 Reported: 12/26/2018 Physician(s): Curtis Oseguera M.D. [facility] Diagnosis: Source of Specimen: SCREENING IMAGED PAP w/ HPV Specimen Adequacy: - Satisfactory for evaluation; endocervical/transformation zone component present General Category: - Negative for intraepithelial lesion or malignancy NAEEM Montano(ASCP) Report Electronically Reviewed and Signed Out By WALDEMAR MontanoASCP) 12/26/2018 14:53:08 Addenda: HPV RNA Test Interpretation NEGATIVE for types 16, 18, 31, 33, 35, 39, 45, 51, 52, 56, 58, 59, 66 and 68. Test performed utilizing Gen-Probe Aptima assay. NAEEM Carrera(ASCP) Report Electronically Reviewed and Signed Out By NAEEM Carrera(ASCP) 12/26/2018 12:46:00 Specimen(s) Received: A: SCREENING IMAGED PAP w/ HPV Clinical History: Last Menstrual Period: months ago The Pap test is a screening test used to aid in the detection of cervical cancer and its precursors. It should not be the sole means by which malignant and premalignant lesions are diagnosed. Both false negative and false positive results may occur. It also has poor sensitivity for the detection of endometrial lesions and should not be used to evaluate suspected endometrial abnormalities. For these reasons it is most important to obtain Pap tests at regular intervals. The performance characteristics of some immunohistochemical stains, fluorescence in-situ hybridization tests and immunophenotyping by flow cytometry cited in this report (if any) were determined by the Surgical Pathology Department at [facility] as part of an ongoing quality assurance monitor final program and in compliance with federally mandated regulations drawn from the Clinical Laboratory Improvement Act of 1988 (CLIA '88). Some of these tests rely on the use of analyte specific reagents and are subject to specific labeling requirements by the US Food and Drug Administration. Such diagnostic tests may only be performed in a facility that is certified by the Department of Health and Human Services as a high complexity laboratory under CLIA '88. The FDA has determined that such clearance or approval is not necessary. This test is used for clinical purposes. It should not be regarded as investigational or for research. Nevertheless, federal rules concerning the medical use of analyte specific reagents require that the following disclaimer be attached to the report: This test was developed and its performance characteristics determined by the Surgical Pathology Department [facility]. It has not been cleared or approved by the U. S. Food and Drug Administration. us Curtis Oseguera MD LAB CYTOLOGY ORDERABLES Final Result [id number] [place], [place] [address] [phone] * Serum Hepatitis C ab (06/29/2015 2:43 PM BIOFUELS PRODUCT DEVELOPMENT MANAGER) HCV ab Non-Reacti ve Non-Reacti ve HISTORICAL RESULTS Serum 06/29/2015 2:43 PM BIOFUELS PRODUCT DEVELOPMENT MANAGER Miriam VALLE LAB BLOOD ORDERAB LES Final Result Performing Organization Address City/[facility] Co de Phone Number HISTORICAL RESULTS from Last 3 Months or Most Recently Relevant to Health Maintenance Insurance [facility] [place] Care Teams Capacitor Assembler Relationship Specialty Start Date End Date Bhupinder Tobias MD [address] [place] [address] PCP - General Internal Medicine 06/03/20 Cash Woodruff III, MD [address] [place] [address] Rheumatology 04/12/17 Jorge Aguiar MD [address] [place] [address] Consulting Physician Urology 11/10/20 Khoa Arias MD [address] [place] [address] Referring Physician Gastroenterology 03/20/21
--- OUTSIDE RECORDS SUMMARY | 2024-06-12 04:48 | XMS_ITS | Continuity of Care Document ---
Author Organization [facility] Address [address] [place] [address] Phone Care Team Providers Care Security Test Engineer Name Role Phone Amadeo Arias MD Unavailable [...] Copied on Encounter OFFICE/OUTPAT IENT VISIT EST [facility], [address] [address], [place], [address], tel:[phone] [facility] [place] Patellofemoral instability, rightOther specified sprain of right wrist, initial encounter 0 [address]. [address], [place], [place], [id number] . tel: [phone] [facility], [address], [place], [address], [place] tel:[phone] [facility] Acute bilateral low back pain without sciaticaLeft hip painArthralgia of right hipPatellofemo ral instability, leftPatellofem oral instability, right 6 Hugo Childs. [address], [place], [place], [address] . tel: [phone] OFFICE CONSULTATION [facility], [address], [place], [address], tel:[phone] [facility] [place] Patellofemoral instability, rightPatellofe moral instability, leftArthralgia of right hipLeft hip painAcute bilateral low back pain without sciatica 201 [address]s. [address], [place], [place], [address] . tel: [phone] Referring Provider: Michelle De La Torre[address], [place], [address] . tel:[phone] Family History Family Member Type Diagnosis Age At Onset Sister Problem (finding) Alive and well Payers Payer name Insurance type Covered republican ID Authoriza tion(s) [facility] Choice/Choice Plus E2 [id number] Social History Type Description Quantity Date Captured [...]
--- OUTSIDE RECORDS SUMMARY | 2024-06-12 04:48 | XMS_ITS ---
Author Organization [facility] Address [address] [place] [address] Care Team Providers Care Fence Machine Operator Name Role Phone NADINE WHITE Unavailable [phone] Allergies No Known Allergies Reason For Referral Reason EVAL AND TREAT Diagnosis 1 Chronic pain syndrom e (G89.4) Referral Organization [facility] [place] Referring Provider First Name TERESA Ref[facility]erring Provider Speciality Physician Knocker Off Referred Provider Specialty Pain Medicin e Referral [...] Problem Status W/U Status Risk Notes Problem [id number] Chronic pain syndrome (G89.4) Active confirmed Vital Signs Height 66 in 02/25/2024 Weight 200 lbs 02/25/2024 BMI 32.28 kg/m2 02/25/2024 Patient Reported Normal Bloo d PressurePatient Reported Normal Temperature Encounters Encounter Location Date Provider Diagnosis [facility] [address] [place] [address] 02/25/2024 NADINE WHITE Chronic pain syndrom e [...] Up: PCP, 2W, Reason: Progress Notes * CAMACHO MadalynDOB:1975 ( 48 yo F)Acc No.[id number]:02/25/2024 Patient: Madalyn FREEMAN Provider: Anthony WHITE, :1975 A ge:48 Y S ex:Female Date:02/25/2024 Phone: Address:[address] [place], [place] [address] Subjective: * Chief Complaints: * G eneral HealthPatient requesting service from promotional campaign insurance_pmax * HPI: T eleVisit Consent: Patient's identification was confirmed and they were instructed [...] verbalized understanding to all of the above. T riage: Pt in for chronic pain syndrome. requesting stronger pain medications. unable to see pcp. no recent trauma. * ROS: A ll Other Systems: Review of Systems (ROS) S ee HPI for details. * Medical History: * Surgical History: D enies Past Surgical History * Hospitalization/Major Diagno stic Procedure: D enies Past Hospitalization * Family History: Cancer: Parent. * Social History: T obacco Use: T obacco Control (Standard) T obacco use: F ormer smoker D rugs/Alcohol: D o you drink alcohol?: No. * Medications: N one * Allergies: N .K.D.A.no[Allergies Verified] Objective: * Vitals: H t: 66 in, Wt:200lbs, BMI:32.28Index. Patient Reported Normal Blood Pressure Patient Reported Normal Temperature. * Examination: G eneral Examination: GENERAL APPEARANCE: i n no acute distress. EARS: h earing grossly intact. NEUROLOGIC: a lert and oriented , speech clear. PSYCH: m ood/affect normal, understands directions. ? Assessment: * Assessment: 1. C hronic pain syndrome - G89.4 (Primary) Plan: * Treatment: 2. O thers Notes: Follow the treatment plan as indicated [...] are having a problem with your medicine. Clinical Notes:Risks, benefits, and side effects of medications (if any) discussed with patient, who agreed to the treatment plan.Patient's condition was stable at the end of the televisit. Follow-up instructions provided, including:Scheduling next appointmentMonitoring symptomsAdhering to treatment planContacting clinic with concernsPatient understood and agreed to comply with the follow-up plan. * Procedure Codes: Rhett Fletcher / CC Processing [id number] Office Visit, Est Pt., Level 3 Virtual Visit, Modifiers: 95 * Follow Up: P CP, 2W * Billing Information: * Visit Code: * Procedure Codes: TAMMYFEE Kittyhant / CC Processing Fee. [id number] Office Visit, Est Pt., Level 3 Virtual Visit. Modifiers: 95 * Sign off status: Completed true * Provider: Anthony WHITE DO Date: 04/26/2023 Generated for Tree regalado/Caryl/Dayna on: 0 06/12/2024 05:48 AM EST History and Physical Notes * [...]
--- OUTSIDE RECORDS SUMMARY | 2024-06-12 04:48 | XMS_ITS | Referral Summary ---
Author Organization [facility] [employer] Address [address] [place] [address] Care Team Providers Care Windows Vmware Engineer Name Role Phone Jonathan Hartman RN Unavailable [phone] Feliciano Dash MD Primary Care Provider [phone] Source Comments [facility],non-owned Affiliates and Associated Physician Practices is amultiple site organization consisting of ambulatory clinics and hospital sitesin [place] and [place]. This disclosure is being madepursuant to the Care Everywhere program and may not contain all information available regarding this patient. Last updated 18.[facility] Allergies Active Allergy Reactions Criticality Noted [...] transdermal route every 24 hours. Obtains from [facility] in [place]. 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 Obtains from [facility] in [place]. 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 [...] 184 <200 mg/dL 08/02/2015 10:49 AM CDT [facility] Triglycerides 156(H) <150 mg/dL 08/02/2015 10:49 AM CDT [facility] HDL Cholesterol 43 >40 mg/dL 08/02/2015 10:49 AM CDT [facility] LDL Calculated 110 <130 mg/dL 08/02/2015 10:49 AM CDT [facility] VLDL Calculated 31(H) <=30 mg/dL 08/02/2015 10:49 AM CDT [facility] Chol HDL Ratio 4.3 <4.5 08/02/2015 10:49 AM CDT [facility] LDL/HDL Ratio 2.6 <5.0 08/02/2015 10:49 AM CDT [facility] Blood BLOOD SPECIMEN / Unknown Lab Venipuncture / Unknown 08/02/2015 10:02 AM CDT 08/02/2015 10:13 AM CDT Chucho Hinton MD LAB - CHEMISTRY MORGAN YEE [facility] [address] [place] [address] from Last 3 Months or Most Recently Relevant to Health Maintenance Advance Directives * Full Code (Latest Code Status on File) Date Activated Date Inactivated Comments 01/29/2017 7:53 PM 02/02/2017 1:02 PM * Full Code Date Activated Date Inactivated Comments 08/02/2015 1:57 AM 08/05/2015 3:00 PM * Full Code Date Activated Date Inactivated Comments 07/13/2015 10:36 PM 07/16/2015 3:55 PM Care Teams Windows Vmware Engineer Relationship Specialty Start Date End Date Feliciano Dash MD [address] [facility] [address] [place] [address] PCP - General 07/14/21 Jonathan Hartman, RN Manager Intern 07/14/15
--- OUTSIDE RECORDS SUMMARY | 2024-06-12 04:48 | XMS_ITS ---
Author Organization [facility] [employer] [facility] Address [address] [place] [address] [address] Care Team Providers Care Senior Solutions Architect Name Role Phone Jose Zhang DO Primary Care Provider UnavailAlix Sher Unavailable [phone] Mario Diaz Unavailable [phone] Social History Sex Assigned At : Social History Observation Description Sex Assigned At Female Encounters Encounter Location Date Provider Diagnosis [facility] [employer] [place] [address] [facility] [address] [address] 05/04/2024 Mario Diaz Plan Of Treatment Next Appt Details Provider Name:Alix goldman, 06/15/2024 03:45:00 PM, [facility] [facility] [address], [address] [address], [place], [address], Progress Notes * JULIAN SAUERDOB:1975 ( 49 yo F)Acc No.[id number]:05/04/2024 Patient: Armando NIRADDIJULIAN Provider: Sachin Diaz LCPC :1975 A ge:48 Y S ex:Female Date:05/04/2024 Address[address] [facility] Pcp:Jose Zhang DO Data: * Chief Complaints: * * Medical History: * Vitals: Assessment: Plan: * Treatment: * Procedure Codes: N STHR NO SHOW THERAPY * Billing Information: * Visit Code: * Procedure Codes: NSTHR NO SHOW THERAPY. * Electronic signature of Francois Diaz LCPC on 06/12/2024 at 04:48 AM VASCULAR SONOGRAPHER Sign off status: Pending Signatures: No Ad Hoc Signature Added * Provider: Sachin Diaz LCPC Date: 0 05/04/2024 Generated for Tree Thurman/Dayna on: 0 06/12/2024 04:48 AM VASCULAR SONOGRAPHER
--- OUTSIDE RECORDS SUMMARY | 2024-06-12 04:48 | XMS_ITS | Clinical Summary ---
Author Organization [facility] Address [address], [address] [address] Phone Care Team Providers Care Surgical Coder Name Role Phone Marbin Fair DO Unavailable Amadeo Hernandez MD Unavailable Isaiah Quiros MD Primary Care Provider [phone] Medications cholestyramine (QUESTRAN) 4 GM Pack Take 1 Packet by mouth 2 times daily (with meals). 180 Packet 3 03/09/2019 Active Social History Tobacco Use Types Packs/Day Years Used Date Smoking Tobacco: Never Assessed Comments Unknown Sex and Gender Information Value Date Recorded Sex Assigned at Not on file Legal Sex Female 3:35 PM COMFORT STATION SUPERVISOR Gender Identity Not on file Sexual Orientation [...] Relevant to Health Maintenance Insurance Care Teams Surgical Coder Relationship Specialty Start Date End Date Isaiah Quiros MD [address], [address] [place] [address] PCP - General Internal Medicine 05/08/18 Marbin Fair DO Gastroenterology 12/03/16 Amadeo Hernandez MD [address] [address] 12/03/16
--- OUTSIDE RECORDS SUMMARY | 2024-06-12 04:48 | XMS_ITS | Patient Health Summary ---
Author Organization [facility] Address [address] [address] Care Team Providers Care Humanities And Languages Professor Name Role Phone Jonathan Hartman RN Unavailable [phone] Feliciano Dash MD Primary Care Provider [phone] Note from [facility],non-owned Affiliates and Associated Physician Practices is amultiple site organization consisting of ambulatory clinics and hospital sitesin [place], [place], [place] and [place]. This disclosure is being madepursuant to the Care Everywhere program and may not contain all information available regarding this patient. Last updated 18.[facility] Allergies * Ibuprofen(Other) -Medium Criticality [...] transdermal route every 24 hours. Obtains from [facility] in [place]. Reasons: Rhemuatoid arthiritis and Meredith-Danlos syndrome * Other CDB-THC (1:1 ratio) 10 mg capsule by mouth daily. Obtains from [facility] in [place]. Reasons: Rheumatoid arthritis and Meredith-Danlos syndrome * [...] - 10.7 x10E9/L 02/01/2017 4:35 AM CDT [facility] WBC Corrected x10E9/L 02/01/2017 4:35 AM CDT [facility] RBC 3.88 3.80 - 5.20 x10E12/L 02/01/2017 4:35 AM CDT [facility] Hemoglobin 11.3(L) 12.0 - 15.6 gm/dL 02/01/2017 4:35 AM CDT [facility] Hematocrit 35.1(L) 35.9 - 45.5 % 02/01/2017 4:35 AM CDT [facility] MCV 90.5 80.7 - 98.3 fl 02/01/2017 4:35 AM CDT [facility] MCH 29.1 26.7 - 34.0 pg 02/01/2017 4:35 AM CDT [facility] MCHC 32.2 30.8 - 35.9 gm/dL 02/01/2017 4:35 AM CDT [facility] Platelet Count 313 153 - 416 x10E9/L 02/01/2017 4:35 AM CDT [facility] RDW-CV 13.4 12.1 - 14.9 % 02/01/2017 4:35 AM CDT [facility] MPV 8.7(L) 9.4 - 12.9 fl 02/01/2017 4:35 AM CDT [facility] Neutrophils % 55.7 44.0 - 73.0 % 02/01/2017 4:35 AM CDT [facility] Lymphocytes % 30.7 20.0 - 43.0 % 02/01/2017 4:35 AM CDT [facility] Monocytes % 6.0 5.0 - 13.0 % 02/01/2017 4:35 AM CDT [facility] Eosinophils % 3.5 0.0 - 6.0 % 02/01/2017 4:35 AM CDT [facility] Basophils % 1.0 0.0 - 2.0 % 02/01/2017 4:35 AM CDT [facility] Immature Granulocytes 3.1(H) 0 - 1 % 02/01/2017 4:35 AM CDT [facility] Neutrophil Absolute 3.99 2.01 - 7.14 x10E9/L 02/01/2017 4:35 AM CDT [facility] Lymphocytes Absolute 2.20 1.07 - 3.94 x10E9/L 02/01/2017 4:35 AM CDT [facility] Monocytes Absolute 0.43 0.26 - 1.07 x10E9/L 02/01/2017 4:35 AM CDT [facility] Eosinophils Absolute 0.25 0 - 0.47 x10E9/L 02/01/2017 4:35 AM CDT [facility] Basophils Absolute 0.07 0 - 0.08 x10E9/L 02/01/2017 4:35 AM CDT [facility] Immature Granulocytes Absolute 0.22(H) 0.00 - 0.06 x10E9/L 02/01/2017 4:35 AM CDT [facility] nRBC Auto 0 /100 WBC 02/01/2017 4:35 AM CDT [facility] Blood BLOOD SPECIMEN / Unknown Lab Venipuncture / Unknown 02/01/2017 3:29 AM CDT 02/01/2017 4:22 AM CDT Kristi Shah MD LAB - HEMATOLOGY ORD ERABLES [facility] [address] [place] [address] * (ABNORMAL) BASIC METABOLIC PANEL (CALCIUM TOTAL) (02/01/2017 3:29 AM CDT) Only the most recent of4 resultswithin the time period is included. Glucose 81 74 - 106 mg/dL 02/01/2017 4:48 AM CDT [facility] Sodium 139 136 - 145 mmol/L 02/01/2017 4:48 AM CDT [facility] Potassium 3.5 3.5 - 5.1 mmol/L 02/01/2017 4:48 AM CDT [facility] Chloride 112(H) 98 - 107 mmol/L 02/01/2017 4:48 AM CDT [facility] CO2 19(L) 22 - 31 mmol/L 02/01/2017 4:48 AM CDT [facility] Calcium 8.3(L) 8.5 - 10.1 mg/dL 02/01/2017 4:48 AM CDT [facility] Anion Gap 8 8 - 16 mmol/L 02/01/2017 4:48 AM CDT [facility] BUN 8 7 - 21 mg/dL 02/01/2017 4:48 AM CDT [facility] Creatinine 0.76 0.50 - 1.30 mg/dL 02/01/2017 4:48 AM CDT [facility] eGFR by MDRD >60 >60 mL/min/1.7 3m2 02/01/2017 4:48 AM CDT [facility] eGFR by MDRD >60 >60 mL/min/1.7 3m2 02/01/2017 4:48 AM CDT [facility] Blood BLOOD SPECIMEN / Unknown Lab Venipuncture / Unknown 02/01/2017 3:29 AM CDT 02/01/2017 4:22 AM CDT Kristi Shah MD LAB - CHEMISTRY [place] YEE [facility] [address] [place] [address] * MYCOPLASMA PNEUMO ANTIBODY IGG/IGM PANEL (01/30/2017 2:42 AM CDT) [facility] Mycoplasma pneumoniae Antibody IgG <100 0 - 99 U/mL 01/31/2017 4:21 PM CDT [facility] ([facility]) Comment: Negative: <100 Indeterminate: 100 - 320 Positive: >320 The reference interval established is intended as a baseline only. Values >100 may indicate a recent infection with Mycoplasma pneumoniae and need to be confirmed either by a positive IgM result and/or an additional specimen drawn 2-4 weeks later showing a significant increase in antibody levels. Mycoplasma pneumoniae Antibody IgM <770 0 - 769 U/mL 01/31/2017 4:21 PM T [facility] ([facility]) Comment: Negative <770 Clinically significant amount of M. pneumoniae antibody not detected. Low Positive 770 - 950 M. pneumoniae specific IgM presumptively detected. It is recommended that another sample be collected 1-2 weeks later to assure reactivity. Positive >950 Highly significant amount of M. pneumoniae specific IgM antibody detected. Blood BLOOD SPECIMEN / Unknown Lab Venipuncture / Unknown 01/30/2017 2:42 AM CDT 01/30/2017 3:08 AM CDT [facility] - 01/31/2017 4:21 PM CDT Performed at: [facility] [address] [facility], [place], [place] [id number] It Administrative Assistant: Mahendra Trevino PhD, Phone: [phone] Akira Romero MD LAB - SEROLOGY ORDER BOB [facility] ([facility]) [address] [place] [address] * (ABNORMAL) CHLAMYDIA ANTIBODY IGG/IGM PANEL (01/30/2017 2:42 AM CDT) Chlamydia psittaci Antibody IgM <1:10 Neg:<1:10 02/01/2017 5:10 PM CDT [facility] ([facility]) Comment: This test was developed and its performance characteristics determined by [employer] It has not been cleared or approved by the Food and Drug Administration. The FDA has determined that such clearance or approval is not necessary. Chlamydia psittaci Antibody IgG <1:16 Neg:<1:16 02/01/2017 5:10 PM CDT [facility] ([facility]) Comment: This test was developed and its performance characteristics determined by [employer]. It has not been cleared or approved by the Food and Drug Administration. The FDA has determined that such clearance or approval is not necessary. Chlamydia pneumoniae Antibody IgM <1:16 Neg:<1:16 02/01/2017 5:10 PM CDT [facility] ([facility]) Test Information Comment 02/02/20 17 5:10 PM CDT [facility] ([facility]) Comment: This test was developed and its performance characteristics determined by [employer]. It has not been cleared or approved by the Food and Drug Administration. The FDA has determined that such clearance or approval is not necessary. Results of this test are for investigational purposes only. The result should not be used as a diagnostic procedure without confirmation of the diagnosis by another medically established diagnostic product or procedure. Chlamydia pneumoniae Antibody IgG <1:10 Neg:<1:10 02/01/2017 5:10 PM CDT [facility] ([facility]) Chlamydia trachomatis Antibody IgM <0.8 0.0 - 0.7 index 02/01/2017 5:10 PM CDT [facility] ([facility]) Comment: Negative <0.8 Borderline 0.8 - 1.0 Positive >1.0 Results for this test are for research purposes only by the assay's senior manager [employer]coe. The performance characteristics of this product have not been established. Results should not be used as a diagnostic procedure without confirmation of the diagnosis by another medically established diagnostic product or procedure. Chlamydia Antibody IgG 1.18(H) 0.00 - 0.90 ratio 02/01/2017 5:10 PM CDT [facility] Comment: Negative <0.91 Equivocal 0.91 - 1.09 Positive >1.09 Blood BLOOD SPECIMEN / Unknown Lab Venipuncture / Unknown 01/30/2017 2:42 AM CDT 01/30/2017 3:08 AM CDT Narrative [facility] - 02/01/2017 5:10 PM CDT Performed at: [address] [place] [id number] It Administrative Assistant: Curtis Sanchez MD, Phone: [phone] Akira Romero MD LAB - CHEMISTRY [place] YEE Performing Organization Address [facility] Co de Phone Number [facility] ([facility] [address] [place] [address] * HISTOPLASMA GALACTOMANNAN AG URINE (01/29/2017 10:37 PM CDT) Histoplasma galactomannan Antigen Urine <0.5 <0.5 ng/mL 02/01/2017 3:19 PM CDT [facility] Disclaimer Comment 02/01/2017 3:19 PM CDT [facility]) Comment: This test was developed and its performance characteristics determined by [facility]. It has not been cleared or approved by the Food and Drug Administration. Urine URINE / Unknown Collection / Unknown 01/29/2017 10:37 PM CDT 01/29/2017 10:43 PM CDT Narrative [facility] - 02/01/2017 3:19 PM CDT Performed at: [address] [place] [id number] It Administrative Assistant: Curtis Sanchez MD, Phone: [phone] Akira Romero MD LAB - URINE CHEMISTR Y ORDERABLES [facility]) [address] [place] [address] * RESPIRATORY PATHOGEN PANEL BY PCR (01/29/2017 10:36 PM CDT) Adenovirus PCR Not detected Not detected, Invalid, Indeterminate 01/30/2017 5:53 AM CDT [facility] Human Metapneumovirus PCR Not detected Not detected, Invalid, Indeterminate 01/30/2017 5:53 AM CDT [facility] Human Rhinovirus/Entero virus PCR Not detected Not detected, Invalid, Indeterminate 01/30/2017 5:53 AM CDT [facility] Influenza A Non Subtyped PCR Not detected Not detected, Invalid, Indeterminate 01/30/2017 5:53 AM CDT [facility] Influenza A H1 PCR Not detected Not detected, Invalid, Indeterminate 01/30/2017 5:53 AM CDT [facility] Influenza A H3 PCR Not detected Not detected, Invalid, Indeterminate 01/30/2017 5:53 AM CDT [facility] Influenza A H1 2009 PCR Not detected Not detected, Invalid, Indeterminate 01/30/2017 5:53 AM CDT [facility] Influenza B PCR Not detected Not detected, Invalid, Indeterminate 01/30/2017 5:53 AM CDT [facility] Mycoplasma pneumoniae PCR Not detected Not detected, Invalid, Indeterminate 01/30/2017 5:53 AM CDT [facility] Parainfluenza Virus 1 PCR Not detected Not detected, Invalid, Indeterminate 01/30/2017 5:53 AM CDT [facility] Parainfluenza Virus 2 PCR Not detected Not detected, Invalid, Indeterminate 01/30/2017 5:53 AM CDT [facility] Parainfluenza Virus 3 PCR Not detected Not detected, Invalid, Indeterminate 01/30/2017 5:53 AM CDT [facility] Parainfluenza Virus 4 PCR Not detected Not detected, Invalid, Indeterminate 01/30/2017 5:53 AM CDT [facility] Respiratory Syncytial Virus PCR Not detected Not detected, Invalid, Indeterminate 01/30/2017 5:53 AM CDT [facility] Bordetella pertussis PCR Not detected Not detected, Invalid 01/30/2017 5:53 AM CDT [facility] Coronavirus PCR Not detected Not detected, Invalid, Indeterminate 01/30/2017 5:53 AM CDT [facility] Microbiology NASOPHARYNGEAL SWAB / Unknown Collection / Unknown 01/29/2017 10:36 PM CDT 01/29/2017 10:42 PM CDT Narrative [facility] - 01/30/2017 5:53 AM CDT Coronavirus PCR detects the following coronaviruses: 229E, HKU1, NL63, OC43. Akira Romero MD LAB - MICROBIOLOGY O [place] Performing Organization Address [facility] Co de Phone Number [facility] [address] [place] [address], [facility] [phone] * CULTURE BLOOD (01/29/2017 6:59 PM CDT) Only the most recent of2 resultswithin the time period is included. Culture No growth day 5 [facility] 02/04/2017 12:00 AM CDT [facility] Blood PERIPHERAL BLOOD / Unknown Venipuncture / Unknown 01/29/2017 6:59 PM CDT 01/29/2017 7:03 PM CDT Clinton Dorman DO LAB - MICROBIOLOGY O [place] Performing Organization Address [facility] de Phone Number [facility] [address] [place] [address], [facility] [phone] * CT CHEST PE (01/29/2017 5:23 PM [...] of8 resultswithin the time period is included. HCG Qual Urine Negative Negative [facility] POCT TESTING QC Verified Yes Yes [facility] POC T TESTING Urine URINE / Unknown 01/29/2017 4 :45 PM CDT Clinton Dorman DO LAB - POINT OF CARE ORDERABLES [facility] PO[facility] TESTING [address] [place] [address] * (ABNORMAL) D-DIMER (01/29/2017 3:57 PM CDT) D-Dimer 0.71(H) 0.17 - 0.5 mg/L FEU 01/29/2017 4:14 PM CDT [facility] Blood BLOOD SPECIMEN / Unknown Venipuncture / Unknown 01/29/2017 3:57 PM CDT 01/29/2017 3:59 PM CDT Narrative [facility] - 01/29/2017 4:14 PM CDT The [...] - COAGULATION OR DERABLES Performing Organization Address City/State/[facility] Co de Phone Number [facility] [address] [place] [address] * INFLUENZA A+B ANTIGEN RAPID (01/29/2017 1:38 PM CDT) [facility] Influenza A Antigen Negative Negative 01/29/2017 1:55 PM CDT [facility] Influenza B Antigen Negative Negative 01/29/2017 1:55 PM CDT [facility] Microbiology NASOPHARYNGEAL SWAB / Unknown Collection / Unknown 01/29/2017 1:38 PM CDT 01/29/2017 1:43 PM CDT Narrative [facility] - 01/29/2017 1:55 PM CDT The sensitivity of rapid tests for influenza A and B antigens, according to the published reports , ranges from 30-70% when compared to PCR and viral culture. For H1N1 influenza A, the sensitivity varies from 30-50%. For other influenza A strains, the sensitivity ranges from 50-70%. For influenza B virus, the sensitivity is approximately 30%. A negative result does not exclude influenza infection. False-positive (and true-negative) influenza test results are [...] - MICROBIOLOGY O RDERABLES Performing Organization Address [facility] Co de Phone Number [facility] [address] [place] [address] * EKG 12-LEAD (01/29/2017 12:20 PM CDT) Only the most recent of2 resultswithin the time period is included. Pathologist [facility] Ventricular Rate 100 BPM [facility] Atrial Rate 100 BPM [facility] P-R Interval 84 ms [facility] QRS Duration ms 102 ms [facility] M[facility] Q-T Interval ms 366 ms [facility] QTC Calculation (Bezet) 472 ms [facility] MUSE Calculated P [place] 26 degrees [facility] MUSE Calculated R [place] 48 degrees [facility] MUSE Calculated T [place] 33 degrees [facility] Interpretation EKG SINUS RHYTHM WITH SHORT OK NONSPECIFIC ST ABNORMALITY ABNORMAL ECG Confirmed by MD Lisandra, Toi (2) on 01/30/2017 7:55:22 AM [facility] 01/29/2017 12:2 0 PM CDT 01/30/2017 7:55 AM CDT Clinton Dorman DO ECG ORDERABLES Performing Organization Address [facility] de Phone Number [facility] * (ABNORMAL) COMPREHENSIVE METABOLIC PANEL (01/29/2017 12:14 PM CDT) Only the most recent of6 resultswithin the time period is included. Pathologist [facility] Glucose 97 74 - 106 mg/dL 01/29/2017 12:44 PM CDT [facility] Sodium 137 136 - 145 mmol/L 01/29/2017 12:44 PM CDT [facility] Potassium 3.6 3.5 - 5.1 mmol/L 01/29/2017 12:44 PM CDT [facility] Chloride 108(H) 98 - 107 mmol/L 01/29/2017 12:44 PM CDT [facility] CO2 18(L) 22 - 31 mmol/L 01/29/2017 12:44 PM CDT [facility] Calcium 8.7 8.5 - 10.1 mg/dL 01/29/2017 12:44 PM CDT [facility] Anion Gap 11 8 - 16 mmol/L 01/29/2017 12:44 PM CDT [facility] BUN 13 7 - 21 mg/dL 01/29/2017 12:44 PM CDT [facility] Creatinine 0.93 0.50 - 1.30 mg/dL 01/29/2017 12:44 PM CDT [facility] Alkaline Phosphatase 70 38 - 126 U/L 01/29/2017 12:44 PM CDT [facility] ALT 21 13 - 61 U/L 01/29/2017 12:44 PM CDT [facility] AST 17 5 - 40 U/L 01/29/2017 12:44 PM CDT [facility] Protein Total 7.6 6.4 - 8.2 gm/dL 01/29/2017 12:44 PM CDT [facility] Albumin 3.3(L) 3.4 - 5.0 gm/dL 01/29/2017 12:44 PM CDT [facility] Bilirubin Total 0.5 0.2 - 1.0 mg/dL 01/29/2017 12:44 PM CDT [facility] eGFR by MDRD >60 >60 mL/min/1.7 3m2 01/29/2017 12:44 PM CDT [facility] eGFR by MDRD >60 >60 mL/min/1.7 3m2 01/29/2017 12:44 PM CDT [facility] Blood BLOOD SPECIMEN / Unknown Venipuncture / Unknown 01/29/2017 12:14 PM CDT 01/29/2017 12:27 PM CDT Clinton Dorman DO LAB - CHEMISTRY [place]OR[place] YEE [facility] Organization Address City/State/ZIP Co de Phone Number [facility] [address] [place], [place] [id number] * LACTIC ACID BLOOD (01/29/2017 12:14 PM CDT) Only the most recent of2 resultswithin the time period is included. Lactic Acid 1.7 0.7 - 2.1 mmol/L 01/29/2017 12:44 PM CDT [facility] Blood BLOOD SPECIMEN / Unknown Venipuncture / Unknown 01/29/2017 12:14 PM CDT 01/29/2017 12:27 PM CDT Clinton Dorman DO LAB - CHEMISTRY [place] YEE [facility] [address] [place] [address] * CT RENAL STONE PROTOCOL (NO IV AND NO ORAL CONTRAST) (05/17/2016 1:00 PM ACADEMIC PHYSICIAN) Anatomical Region Laterality Modality Abdomen, Pelvis Computed Tomogra phy 05/17/2016 1:14 PM ACADEMIC PHYSICIAN Impressions 05/17/2016 1:19 PM ACADEMIC PHYSICIAN 1. Multiple bilateral renal calculi seen within the kidneys without evidence of hydronephrosis or hydroureter. The largest calculus on the right measures approximately 4 mm and the largest on the left approximately 5 mm. Narrative 05/17/2016 1:[address] abdomen and pelvis without contrast Technique: [...] ROUTINE W/REFLEX TO CULTURE (05/17/2016 12:49 PM ACADEMIC PHYSICIAN) Only the most recent of5 resultswithin the time period is included. Color UA Yellow Straw, Yellow, Dark Yellow 05/17/2016 1:08 PM ACADEMIC PHYSICIAN [facility] Clarity UA Clear 05/17/2016 1:08 PM ACADEMIC PHYSICIAN [facility] Specific [place] UA 1.020 1.005 - 1.030 05/17/2016 1:08 PM ACADEMIC PHYSICIAN [facility] pH UA 6.5 5.0 - 8.0 pH 05/17/2016 1:08 PM [facility] Protein UA Negative Negative 05/17/2016 1:08 PM [facility] Blood UA Negative Negative 05/17/2016 1:08 PM [facility] Leukocyte UA 2+(A) Negative 05/17/2016 1:08 PM [facility] Nitrite UA Negative Negative 05/17/2016 1:08 PM [facility] Glucose UA Negative Negative 05/17/2016 1:08 PM [facility] Ketone UA Negative Negative 05/17/2016 1:08 PM [facility] Bilirubin UA Negative Negative 05/17/2016 1:08 PM [facility] Urobilinogen UA 0.2 0.1 - 1.0 EU/dL 05/17/2016 1:08 PM [facility] WBC UA Auto 5-10(A) 0-2, 2-5 # /hpf 05/17/2016 1:08 PM [facility] RBC UA Auto 2-5 0-2, 2-5 # /hpf 05/17/2016 1:08 PM [facility] Epithelial Cell UA Auto 5-10(A) 0-2, 2-5 # /hpf 05/17/2016 1:08 PM [facility] Bacteria UA Auto 1+(A) None seen 05/17/19 17 1:08 PM [facility] Reflex Status Culture to follow 05/17/2016 1:08 PM [facility] Urine URINE SPECIMEN OBTAINED BY CLEAN CATCH PROCEDURE / Unknown Collection / Unknown 05/17/2016 12:49 PM ACADEMIC PHYSICIAN 05/17/2016 12:56 PM [facility] Eleno Mcclure DO LAB - URINALYSIS ORD ERABLES [facility] [address] [place] [address] * CULTURE URINE (05/17/2016 12:49 PM ACADEMIC PHYSICIAN) Only the most recent of5 resultswithin the time period is included. Culture 10,000-50,000 CFU/mL urogenital adelso CARLOS EDUARDO 05/18/2016 3:24 PM [facility] Urine URINE SPECIMEN OBTAINED BY CLEAN CATCH PROCEDURE / Unknown Collection / Unknown 05/17/2016 12:49 PM ACADEMIC PHYSICIAN 05/17/2016 12:56 PM ACADEMIC PHYSICIAN Eleno Mcclure DO LAB - MICROBIOLOGY O [place]IGH [facility] [address] [place] [id number] [place] [address] * HELICOBACTER PYLORI UREASE (STL) (04/06/2016 9:51 AM ACADEMIC PHYSICIAN) Helicobacter pylori Urease Initial Negative Negative 04/07/2016 11:49 AM ACADEMIC PHYSICIAN [facility] Helicobacter pylori Urease Final Negative Negative 04/07/2016 11:49 AM ACADEMIC PHYSICIAN [facility] Microbiology GASTRIC CONTENTS SPECIMEN / Unknown 04/06/2016 9:51 AM ACADEMIC PHYSICIAN 04/06/2016 12:31 PM ACADEMIC PHYSICIAN Armando Corona MD LAB - MICROBIOLOGY O [place]IGH Performing Organization Address City/[facility] Co de Phone Number [facility] [address] [place] [address] * EGD (04/06/2016 9:19 AM ACADEMIC PHYSICIAN) Report Endoscopy POC __ _ Patient Name: Madalyn Walton Procedure Date: 04/06/2016 9:19 AM Date of : 1975 Admit Type: Outpatient Age: 40 Gender: Female Attending MD: Armando Corona , __ _ Procedure: Upper GI endoscopy Indications: Abdominal pain Providers: Armando Corona (Doctor), Cheli Vazquez RN Patient Profile: 40F pmh depression, RA, diverticulitis early 2015 prior gastric ulcer here to evaluate abd pain Referring MD: Feliciano Dash Md (Referring MD) Medicines: Monitored Anesthesia Care Complications: No immediate complications. __ _ Procedure: After obtaining informed consent, the endoscope was passed under direct vision. Throughout the procedure, the patient's blood pressure, pulse, and oxygen saturations were monitored continuously. The Endoscope was introduced through the mouth, and advanced to the second part of duodenum. The upper GI endoscopy was accomplished without difficulty. The patient tolerated the procedure well. Impression: - LA Grade A esophagitis. - Gastritis. Biopsied. - Normal examined duodenum. Findings: LA Grade A (one or more mucosal breaks less than 5 mm, not extending between tops of 2 mucosal folds) esophagitis was found at the gastroesophageal junction. Patchy moderate inflammation characterized by erythema and friability was found on the greater curvature of the stomach. Biopsies were taken with a cold forceps for Helicobacter pylori testing using CLOtest. The examined duodenum was normal. __ _ Recommendation: - Await pathology results. - Protonix to 40 BID x 4 wks, then back to QD - Incr dosing of linzess next if no better by then - followup with me in the office Procedure Code(s): --- Professional --- 21193, Esophagogastroduode noscopy, flexible, transoral; with biopsy, single or multiple --- Technical --- 73860, Esophagogastroduode noscopy, flexible, transoral; with biopsy, single or multiple Diagnosis Code(s): --- Professional --- K20.9, Esophagitis, unspecified K29.70, Gastritis, unspecified, without bleeding R10.9, Unspecified abdominal pain --- Technical --- K20.9, Esophagitis, unspecified K29.70, Gastritis, unspecified, without bleeding R10.9, Unspecified abdominal pain CPT copyright 2015 [employer]. All rights reserved. The codes documented in this report are preliminary and upon yard coordinator review may be revised to meet current compliance requirements. Armando Corona, 04/06/2016 9:52:47 AM This report has been signed electronically. Number of Addenda: 0 Note Initiated On: 04/06/2016 9:19 AM [facility] 04/06/2016 9:19 AM ACADEMIC PHYSICIAN Narrative Procedure Note Armando Corona MD - 04/06/2016 9:53 AM CST EGD Grade A esophagitis Mild gastritis s/p bx Nl duodenum Armando Corona MD GI PROCEDURE ORDERAB LES [facility] * ENDOSCOPY, COLON, DIAGNOSTIC (12/15/2015 12:53 PM CDT) Armando Corona MD GI PROCEDURE ORDERAB LES * GROSS + MICRO EXAM (STL) (12/15/2015 12:34 PM CDT) Only the most recent of4 resultswithin the time period is included. Case Report Surgical Pathology Report Case: [id number] Authorizing Provider: Armando Corona MD Collected: 12/15/2015 12:34 PM Ordering Location: [facility] Received: 12/16/2015 09:42 AM Pathologist: Doris Morrison MD Specimen: Colon Biopsy, random colon biopsy 12/17/2015 10:19 AM CDT [facility] Final Diagnosis 1. Large intestine, random colon, endoscopic biopsy: -- No histopathologic abnormality KL/klg 12/17/2015 10:19 AM CDT [facility] Gross Description Received in formalin in a container labeled Madalyn Walton., random colon biopsy. The container holds multiple pink-baird tissue fragments measuring from 0.2 cm up to 0.4 cm. The specimen is entirely submitted in a cassette labeled A1. DYT/dak 12/17/2015 10:19 AM CDT [facility] Microscopic Description Histologic sections show fragments of large intestinal mucosa without specific histopathologic abnormality. There is no evidence of lymphocytic or collagenous colitis. There is no evidence of dysplasia or malignancy. KL/klg 12/17/2015 10:19 AM CDT [facility] Pathology/Cytolo gy COLONIC BIOPSY SPECIMEN / Unknown 12/15/2015 12:34 PM CDT 12/16/2015 9:42 AM CDT Armando Corona MD LAB - PATHOLOGY/CYTO LOGY ORDERABLES Performing Organization Address City/State/[facility] Co de Phone Number [facility] [address] [place], [place] [phone] * ENDOSCOPY, COLON, SCREENING (12/15/2015 12:23 PM CDT) Report Endoscopy POC _ Patient Name: Madalyn Walton Procedure Date: 12/15/2015 12:23 PM Date of : 1975 Admit Type: Outpatient Age: 40 Gender: Female Attending MD: Armando Corona , _ Procedure: Colonoscopy Indications: Lower abdominal pain Providers: Armando Corona (Doctor), Myranda Keys, Enma Medina, Automotive Detailer Patient Profile: 40F pmh 40F pmh depression, arthritis, diverticulitis early 2015, prior gastric ulcer healed 07/2015, diverticulitis early 2015 here to evaluate continued lower abd pain in setting of pos lactoferrin stools Referring MD: Feliciano Dash Md (Referring MD) Medicines: Monitored Anesthesia Care Complications: No immediate complications. _ Procedure: After I obtained informed consent, the scope was passed under direct vision. Throughout the procedure, the patient's blood pressure, pulse, and oxygen saturations were monitored continuously. The Colonoscope was introduced through the anus and advanced to the cecum, identified by appendiceal orifice and ileocecal valve. The colonoscopy was performed without difficulty. The patient tolerated the procedure well. The quality of the bowel preparation was good. Impression: - The entire examined colon is normal on direct and retroflexion views. - The distal rectum and anal verge are normal on retroflexion view. Findings: The perianal and digital rectal examinations were normal. The entire examined colon appeared normal on direct and retroflexion views. Radnom biopsies were taken with a cold forceps for histology from the entire colon The retroflexed view of the distal rectum and anal verge was normal and showed no anal or rectal abnormalities. _ Recommendation: - Await pathology results - will consider TCA if biopsies are negative Procedure Code(s): --- Professional --- 22992, Colonoscopy, flexible; with biopsy, single or multiple --- Technical --- 23003, Colonoscopy, flexible; with biopsy, single or multiple Diagnosis Code(s): --- Professional --- R10.30, Lower abdominal pain, unspecified --- Technical --- R10.30, Lower abdominal pain, unspecified CPT copyright 2015 [employer]. All rights reserved. The codes documented in this report are preliminary and upon yard coordinator review may be revised to meet current compliance requirements. Armando Corona, 12/15/2015 12:47:51 PM This report has been signed electronically. Number of Addenda: 0 Note Initiated On: 12/15/2015 12:23 PM [facility] 12/15/2015 12:2 3 PM CDT Narrative Transcriptions Armando Corona MD - 12/15/2015 12:53 PM CDT Neg colon s/p random bx Armando Corona MD GI PROCEDURE ORDERAB LES Performing Organization Address City/[facility]/ZIP Co de Phone Number [facility] * (ABNORMAL) LIPASE BLOOD (08/27/2015 6:11 PM CDT) Only the most recent of3 resultswithin the time period is included. Lipase 264(H) 10 - 220 U/L 08/27/2015 7:11 PM CDT [facility] Blood BLOOD SPECIMEN / Unknown Venipuncture / Unknown 08/27/2015 6:11 PM CDT 08/27/2015 6:14 PM CDT Colton Caballero MD LAB - CHEMISTRY ORDERABLES [facility] [address] [place] [address] * (ABNORMAL) URINALYSIS MICROSCOPIC ONLY W/REFLEX CULTURE (08/12/2015 9:16 PM CDT) Only the most recent of2 resultswithin the time period is included. RBC UA 0-2 0-2, 2-5 # /hpf 08/12/2015 9:29 PM CDT [facility] WBC UA 2-5 0-2, 2-5 # /hpf 08/12/2015 9:29 PM CDT [facility] Bacteria UA 2+(A) None Seen 08/12/2015 9:29 PM CDT [facility] Epithelial Cell UA 10-20(A) 0-2, 2-5 # /hpf 08/12/2015 9:29 PM CDT [facility] Calcium Oxalate Crystals 1+(A) None Seen 08/12/2015 9:29 PM CDT [facility] Urine URINE SPECIMEN OBTAINED BY CLEAN CATCH PROCEDURE / Unknown 08/12/2015 9:16 PM CDT 08/12/2015 9:19 PM CDT Narrative [facility] - 08/12/2015 9:29 PM CDT *Microscopic performed on un-spun urine; <3mL urine submitted Eleno Mcclure DO LAB - URINALYSIS ORD ERABLES Performing Organization Address [facility] de Phone Number [facility] [address] [place] [phone] * PT-INR (08/12/2015 7:29 PM CDT) PT 9.9 9.5 - 11.6 sec 08/12/2015 7:58 PM CDT [facility] INR 1.0 0.9 - 1.1 08/12/2015 7:58 PM CDT [facility] Blood BLOOD SPECIMEN / Unknown Venipuncture / Unknown 08/12/2015 7:29 PM CDT 08/12/2015 7:44 PM CDT Narrative [facility] - 08/12/2015 7:58 PM CDT Conventional Warfarin Anticoagulant Therapy: INR Reference Range: 2.0-3.0 Intensive Warfarin Anticoagulant Therapy: INR Reference Range: 2.5-3.5 Eleno Mcclure DO LAB - COAGULATION OR DERABLES Performing Organization Address [facility] de Phone Number [facility] [address] [place] [address] * HEMOGLOBIN (08/04/2015 11:16 AM CDT) Hemoglobin 12.6 12.0 - 15.6 gm/dL 08/04/2015 11:28 AM CDT [facility] Blood BLOOD SPECIMEN / Unknown Lab Venipuncture / Unknown 08/04/2015 11:16 AM CDT 08/04/2015 11:22 AM CDT Armando Corona MD LAB - HEMATOLOGY ORD ERABLES [facility] [address] [place] [address] * ENDOSCOPY, COLON, DIAGNOSTIC (08/04/2015 9:04 AM CDT) Report Endoscopy POC _ Patient Name: Madalyn Walton Procedure Date: 08/04/2015 9:04 AM Date of : 1975 Admit Type: Inpatient Age: 40 Gender: Female Attending MD: Armando Corona, _ Procedure: Colonoscopy Indications: Periumbilical abdominal pain, Melena Providers: Armando Corona (Doctor), Rufina Khanna RN, Myranda Keys Patient Profile: 40F pmh depression, arthritis, diverticulitis 3 months prior here to evaluate hx of melena and abd pain Referring MD: Feliciano Dash Md (Referring MD) Medicines: Monitored Anesthesia Care Complications: No immediate complications. _ Procedure: After I obtained informed consent, the scope was passed under direct vision. Throughout the procedure, the patient's blood pressure, pulse, and oxygen saturations were monitored continuously. The Colonoscope was introduced through the anus and advanced to 5 cm into the ileum. The colonoscopy was performed without difficulty. The patient tolerated the procedure well. The quality of the bowel preparation was fair. Impression: - The examined portion of the ileum was normal. - Diverticulosis in the sigmoid colon. - One 7 mm polyp in the descending colon. Resected and retrieved. - The examination was otherwise normal on direct and retroflexion views. Findings: The perianal and digital rectal examinations were normal. The terminal ileum appeared normal. A few small-mouthed diverticula were found in the sigmoid colon. A 7 mm polyp was found in the descending colon. The polyp was sessile. The polyp was removed with a cold snare. Resection and retrieval were complete. The exam was otherwise without abnormality on direct and retroflexion views. _ Recommendation: - Await pathology results. - [facility]. - capsule endoscopy today Procedure Code(s): --- Professional --- 95521, Colonoscopy, flexible; with removal of tumor(s), polyp(s), or other lesion(s) by snare technique --- Technical --- 59929, Colonoscopy, flexible; with removal of tumor(s), polyp(s), or other lesion(s) by snare technique Diagnosis Code(s): --- Professional --- D12.4, Benign neoplasm of descending colon R10.33, Periumbilical pain K92.1, Melena (includes Hematochezia) K57.30, Diverticulosis of large intestine without perforation or abscess without bleeding --- Technical --- D12.4, Benign neoplasm of descending colon R10.33, Periumbilical pain K92.1, Melena (includes Hematochezia) K57.30, Diverticulosis of large intestine without perforation or abscess without bleeding CPT copyright 2015 [employer]. All rights reserved. The codes documented in this report are preliminary and upon yard coordinator review may be revised to meet current compliance requirements. Armando Corona, 08/04/2015 9:38:09 AM This report has been signed electronically. Number of Addenda: 0 Note Initiated On: 08/04/2015 9:04 AM [facility] 08/04/2015 9:04 AM CDT Narrative Transcriptions Armando Corona MD - 08/04/2015 9:39 AM CDT Colonoscopy * fair prep *few diverticuli * no old or fresh blood * normal terminal ileum rec PRN hyoscyamine Capsule endoscopy today Armando Corona MD GI PROCEDURE ORDERAB LES [facility] * EGD (08/03/2015 7:24 AM CDT) Report Endoscopy POC _ Patient Name: Madalyn Walton Procedure Date: 08/03/2015 7:24 AM Date of : 1975 Admit Type: Inpatient Age: 40 Gender: Female Attending MD: Armando Corona, _ Procedure: Upper GI endoscopy Indications: Epigastric abdominal pain, Periumbilical abdominal pain, Melena Providers: Armando Corona (Doctor), Roxi Bennett RN, Sona Dove, Automotive Detailer Patient Profile: 40F pmh depression, arthritis, diverticulitis 3 months prior, prior gastric ulcers 06/2015, here to evaluate worsening abd pain and melena Referring MD: Feliciano Dash Md (Referring MD) Medicines: Monitored Anesthesia Care Complications: No immediate complications. _ Procedure: After obtaining informed consent, the endoscope was passed under direct vision. Throughout the procedure, the patient's blood pressure, pulse, and oxygen saturations were monitored continuously. The Endoscope was introduced through the mouth, and advanced to the proximal jejunum. The upper GI endoscopy was accomplished without difficulty. The patient tolerated the procedure fairly well. Impression: - Normal esophagus. - Gastritis. Biopsied. - Normal examined duodenum. - Normal examined jejunum. Findings: The examined esophagus was normal. Patchy mild inflammation characterized by erythema was found on the greater curvature of the stomach. Biopsies were taken with a cold forceps for Helicobacter pylori testing. The examined duodenum was normal. The examined jejunum was normal. _ Recommendation: - Await pathology results. - PPI to QD - Colonoscopy tomorrow Procedure Code(s): --- Professional --- 92696, Esophagogastroduod enoscopy, flexible, transoral; with biopsy, single or multiple --- Technical --- 51779, Esophagogastroduod enoscopy, flexible, transoral; with biopsy, single or multiple Diagnosis Code(s): --- Professional --- K29.70, Gastritis, unspecified, without bleeding R10.13, Epigastric pain R10.33, Periumbilical pain K92.1, Melena (includes Hematochezia) --- Technical --- K29.70, Gastritis, unspecified, without bleeding R10.13, Epigastric pain R10.33, Periumbilical pain K92.1, Melena (includes Hematochezia) CPT copyright 2015 [employer]. All rights reserved. The codes documented in this report are preliminary and upon yard coordinator review may be revised to meet current compliance requirements. Armando Corona, 08/03/2015 8:00:13 AM This report has been signed electronically. Number of Addenda: 0 Note Initiated On: 08/03/2015 7:24 AM [facility] 08/03/2015 7:24 AM CDT Narrative Transcriptions Armando Corona MD - 08/03/2015 8:00 AM CDT EGD - mild gastritis bx'd, other normal to proximal jejunum Rec Colonoscopy tomorrow Follow [facility] Armando Corona MD GI PROCEDURE ORDERAB LES [facility] * CULTURE STOOL+ E COLI SHIGA-LIKE TOXIN (08/02/2015 4:51 PM CDT) Only the most recent of2 resultswithin the time period is included. Culture No growth Salmonella, Shigella, Campylobacter , E. coli 0157:h7 or Yersinia CARLOS EDUARDO 08/04/2015 6:27 AM CDT [facility] Culture Negative E. coli Shiga-like toxin (NM) CARLOS EDUARDO 08/04/2015 6:27 AM CDT [facility] Stool STOOL SPECIMEN / Unknown Collection / Unknown 08/02/2015 4:51 PM CDT 08/02/2015 4:56 PM CDT Chucho Hinton MD LAB - MICROBIOLOGY O RDERAPOPEYE [facility] [address] [place], [address] [phone] * HGB HCT PANEL (08/02/2015 10:02 AM CDT) Hemoglobin 12.3 12.0 - 15.6 gm/dL 08/02/2015 10:37 AM CDT [facility] Hematocrit 37.6 35.9 - 45.5 % 08/02/2015 10:37 AM CDT [facility] Blood BLOOD SPECIMEN / Unknown Lab Venipuncture / Unknown 08/02/2015 10:02 AM CDT 08/02/2015 10:13 AM CDT Akira Romero MD LAB - HEMATOLOGY ORD PRIMITIVO Performing Organization Address City/[facility]/ZIP Co de Phone Number [facility] [address] [place], [place] [phone] * ALCOHOL ETHYL BLOOD (08/02/2015 10:02 AM CDT) Ethanol <10 <10 mg/dL 08/02/2015 10:49 AM CDT [facility] Ethanol Calculated <0.100 gm/dL 08/02/2015 10:49 AM CDT [facility] Blood BLOOD SPECIMEN / Unknown Lab Venipuncture / Unknown 08/02/2015 10:02 AM CDT 08/02/2015 10:13 AM CDT Narrative [facility] - 08/02/2015 10:49 AM CDT Non Legal Serum Alcohol Chucho Hinton MD LAB - CHEMISTRY [place] Performing Organization Address City/[facility]/ZIP Co de Phone Number [facility] [address] [place] [phone] * (ABNORMAL) LIPID PROFILE (08/02/2015 10:02 AM CDT) Cholesterol 184 <200 mg/dL 08/02/2015 10:49 AM CDT [facility] Triglycerides 156(H) <150 mg/dL 08/02/2015 10:49 AM CDT [facility] HDL Cholesterol 43 >40 mg/dL 08/02/2015 10:49 AM CDT [facility] LDL Calculated 110 <130 mg/dL 08/02/2015 10:49 AM CDT [facility] VLDL Calculated 31(H) <=30 mg/dL 08/02/2015 10:49 AM CDT [facility] Chol HDL Ratio 4.3 <4.5 08/02/2015 10:49 AM CDT [facility] LDL/HDL Ratio 2.6 <5.0 08/02/2015 10:49 AM CDT [facility] Blood BLOOD SPECIMEN / Unknown Lab Venipuncture / Unknown 08/02/2015 10:02 AM CDT 08/02/2015 10:13 AM CDT Chucho Hinton MD LAB - CHEMISTRY [facility] Organization Address City/State/[facility] Co de Phone Number [facility] [address] [place] [address] * CT ABDOMEN AND PELVIS WITH IV [...] lumbar spine. Skeletal structures are otherwise normal. Procedure Note Pati [...] CDT) ABO A 08/01/2015 8:23 PM CDT [facility] Rh Type Positive 08/01/2015 8:23 PM CDT [facility] Comment:History check perfor med. Retype required. Antibody Screen Negative 08/01/2015 8:23 PM CDT [facility] Miscellaneous samples (specimen) BLOOD SPECIMEN / Unknown Venipuncture / Unknown 08/01/2015 7:19 PM CDT 08/01/2015 7:22 PM CDT Hari Niño MD LAB - BLOOD BANK ORD ERABLES [facility] [address] * LAB RESULTS ORDER (07/19/2015 5:06 AM CDT) Narrative 07/19/2015 5:06 AM CDT Ordered by an unspecified provider. Scanned Document LAB - THERAPEUTIC DR UG MONITORING ORDERABLES * EGD (07/15/2015 2:08 PM CDT) Report Endoscopy POC _ Patient Name: Madalyn Walton Procedure Date: 07/15/2015 2:08 PM Date of : 1975 Admit Type: Inpatient Age: 40 Gender: Female Attending MD: Armando Corona, _ Procedure: Upper GI endoscopy Indications: Epigastric abdominal pain Providers: Armando Corona (Doctor), Felipe Gasca RN, Daren Garcia, Automotive Detailer Patient Profile: 40F pmh depression, arthritis with recent diverticulitis 2 months prior here to evaluate epigastric pain (post prandial) in setting of NSAID use Referring MD: Feliciano Dash Md (Referring MD) Medicines: Monitored Anesthesia Care Complications: No immediate complications. _ Procedure: After obtaining informed consent, the endoscope was passed under direct vision. Throughout the procedure, the patient's blood pressure, pulse, and oxygen saturations were monitored continuously. The Endoscope was introduced through the mouth, and advanced to the second part of duodenum. The upper GI endoscopy was accomplished without difficulty. The patient tolerated the procedure well. Impression: - Normal esophagus. - Non-bleeding gastric ulcers. Biopsied. - Normal examined duodenum. Findings: The examined esophagus was normal. 3 non-bleeding linear gastric ulcers were found in the gastric antrum. The largest lesion was 1 mm in largest dimension. Biopsies were taken with a cold forceps for Helicobacter pylori testing. The examined duodenum was normal. _ Recommendation: - Await pathology results. - PPI to BID, correct timing advised - Carafate - Avoid NSAIDs - EGD in 8 wks to evaluate healing Procedure Code(s): --- Professional --- 13071, Esophagogastroduod enoscopy, flexible, transoral; with biopsy, single or multiple --- Technical --- 04300, Esophagogastroduod enoscopy, flexible, transoral; with biopsy, single or multiple Diagnosis Code(s): --- Professional --- K25.9, Gastric ulcer, unspecified as acute or chronic, without hemorrhage or perforation R10.13, Epigastric pain --- Technical --- K25.9, Gastric ulcer, unspecified as acute or chronic, without hemorrhage or perforation R10.13, Epigastric pain CPT copyright 2015 [employer]. All rights reserved. The codes documented in this report are preliminary and upon yard coordinator review may be revised to meet current compliance requirements. Armando Corona, 07/15/2015 2:36:07 PM This report has been signed electronically. Number of Addenda: 0 Note Initiated On: 07/15/2015 2:08 PM [facility] 07/15/2015 2:08 PM CDT Narrative Transcriptions [...] ok to go home if tolerates diet Armando Corona MD GI PROCEDURE ORDERAB LES Performing Organization Address [facility]/ZIP Co de Phone Number [facility] * MPO/OK 3 AUTOANTIBODIES PANEL (07/15/2015 5:51 AM CDT) Anti-myeloperox idase (MPO) Antibody <9.0 0.0 - 9.0 U/mL 07/18/2015 1:17 PM CDT [facility] ([facility]) Anti-proteinase 3 (OK-3) Abs <3.5 0.0 - 3.5 U/mL 07/18/2015 1:17 PM CDT [facility] ([facility]) Blood specimen (specimen) BLOOD SPECIMEN / Unknown Lab Venipuncture / Unknown 07/15/2015 5:51 AM CDT 07/15/2015 6:11 AM CDT Narrative [facility] ([facility]) - 07/18/2015 1:17 PM CDT Performed at: [address] [id number] It Administrative Assistant: Curtis Sanchez MD, Phone: [phone] Chucho Hinton MD LAB - CHEMISTRY [facility]) * (ABNORMAL) C-REACTIVE PROTEIN (07/15/2015 5:50 AM CDT) C-Reactive Protein 0.30(H) <0.30 mg/dL 07/15/2015 6:48 AM CDT [facility] Blood BLOOD SPECIMEN / Unknown Lab Venipuncture / Unknown 07/15/2015 5:50 AM CDT 07/15/2015 6:11 AM CDT Chucho Hinton MD LAB - CHEMISTRY ORDE WILDALES Performing Organization Address [facility] Co de Phone Number [facility] [address] [place] [phone] * SED RATE WESTERGREN (07/15/2015 5:50 AM CDT) Erythrocyte Sedimentation Rate Westergren 7 0 - 20 mm/hr 07/15/2015 6:36 AM CDT [facility] Blood BLOOD SPECIMEN / Unknown Lab Venipuncture / Unknown 07/15/2015 5:50 AM CDT 07/15/2015 6:11 AM CDT Chucho Hinton MD LAB - HEMATOLOGY ORD ERABLES Performing Organization Address [facility] de Phone Number [facility] [address] [place] [phone] * (ABNORMAL) LACTOFERRIN FECAL QUALITATIVE (07/14/2015 1:44 PM CDT) Pathologist [facility] Lactoferrin Fecal Positive( A) Negative 07/14/2015 9:15 PM CDT [facility] Stool STOOL SPECIMEN / Unknown Collection / Unknown 07/14/2015 1:44 PM CDT 07/14/2015 3:56 PM CDT Narrative [facility] - 07/14/2015 9:15 PM CDT Fecal lactoferrin is a marker for fecal leukocytes. CAUTION: A negative result does not exclude the presence of intestinal inflammation. This test is not recommended for children who are breast-fed; the presence of lactoferrin in breast milk can give false-positive results. Chucho Hinton MD LAB - BODY FLUID ORD ERABLES Performing Organization Address [facility] Co de Phone Number [facility] [address] [place] [address] [phone] * CLOSTRIDIUM DIFFICILE GDH AG + TOXIN A+B (07/14/2015 1:43 PM CDT) GDH Antigen Negative Negative, Invalid 07/15/2015 9:08 AM CDT [facility] C difficile Toxin A + B Negative Negative, Invalid 07/15/2015 9:08 AM CDT [facility] Interpretation C difficile Negative for toxigenic C. difficile Negative for toxigenic C. difficile 07/15/2015 9:08 AM CDT [facility] Stool STOOL SPECIMEN / Unknown Collection / Unknown 07/14/2015 1:43 PM CDT 07/14/2015 3:55 PM CDT Chucho Hinton MD LAB - MICROBIOLOGY O RDERABLES [facility] [address] [place] [address], [facility] [phone] * XR HANDS BILATERAL 2 VIEWS (06/29/2015 1:18 PM ACADEMIC PHYSICIAN) Anatomical Region Laterality Modality Wrist / Hand, Upper Extremity Ra diographic Imaging 06/29/2015 7:37 PM ACADEMIC PHYSICIAN Impressions 06/29/2015 7:38 PM ACADEMIC PHYSICIAN Normal radiographs of both hands. Narrative 06/29/2015 7:38 PM ACADEMIC PHYSICIAN BILATERAL HANDS, TWO VIEWS OF EACH HISTORY: Pain. COMPARISON: None. FINDINGS: Alignment of both hands is normal. The joint spaces are normal bilaterally. There is no fracture. Procedure Note Pati Fernandez MD - 06/29/2015 BILATERAL HANDS, TWO VIEWS OF EACH HISTORY: Pain. COMPARISON: None. FINDINGS: Alignment of both hands is normal. The joint spaces are normal bilaterally. There is no fracture. IMPRESSION Normal radiographs of both hands. Miriam Olivarez ORDERABLES Care Teams Humanities And Languages Professor Relationship Specialty Start Date End Date Feliciano Dash MD [address] [address] PCP - General 07/14/21 Jonathan Hartman RN Glass Decorator 07/14/15
--- OUTSIDE RECORDS SUMMARY | 2024-06-12 04:48 | XMS_ITS | Clinical Summary ---
Author Organization [place] [id number] Address [address] [place] [address] Phone Care Team Providers Care Chemist Name Role Phone Kumar CARRILLO MD, John J. Unavailable [phone] Bhupinder Tobias MD Primary Care Provider [phone] Jorge Aguiar MD Unavailable [phone] Khoa Arias MD Unavailable [phone] Allergies No known active allergies Medications [...] (08/30/2021): Added automatically from request for surgery [id number] Abdominal pain 03/31/2021 Assessment & Plan (06/28/2021 10:08 AM REEL SYSTEM OPERATOR): Recently dx with mild pancreatitis. Needs lipase/amylase rechecked. Still has some upper abd pain. Advised pt to f/u with GI also. Assessment & Plan (06/19/2021 8:52 AM REEL SYSTEM OPERATOR): Had abd pain early this month, check amyl/lip and ua. Pain has resolved. Assessment & Plan (05/05/2021 10:13 PM REEL SYSTEM OPERATOR): Having abd pain, bloating, constipation. On meds for IBS and also using suppositories to have BM. Incidental findings of mesenteric fat stranding (adenitis or panniculitis) on abd CT. Awaiting further eval by Dr. Arias. Assessment & Plan (03/31/2021 8:44 AM REEL SYSTEM OPERATOR): Elevated lipase. Imuran stopped. Pt advised [...] 04/23/2019 Assessment & Plan (03/24/2020 7:29 AM REEL SYSTEM OPERATOR): Normal serum immunoglobulins. Assessment & Plan [...] immunoglobulins. Assessment & Plan (04/23/2019 1:46 PM REEL SYSTEM OPERATOR): Check serum immunoglobulins. Osteoporosis without current pathological fractu re 09/18/2018 Assessment & Plan (08/10/2021 8:09 AM CDT): bds checked by pcp in past, is taking ca and vit d and pcp checked vit D and PTH per pt was wnl. Her pcp started her on alendronate 70mg po qweek. Taking ca + vit d 1200mg qd. Assessment & Plan (06/15/2021 10:46 AM REEL SYSTEM OPERATOR): bds checked by pcp in past, is taking ca and vit d and pcp checked vit D and PTH per pt was wnl. Her pcp started her on alendronate 70mg po qweek. Taking ca + vit d 1200mg qd. Assessment & Plan (06/09/2021 8:30 AM REEL SYSTEM OPERATOR): bds checked by pcp in past, is taking ca and vit d and pcp checked vit D and PTH per pt was wnl. Her pcp started her on alendronate 70mg po qweek. Taking ca + vit d 1200mg qd. Assessment & Plan (05/04/2021 8:19 AM REEL SYSTEM OPERATOR): bds checked by pcp in past, [...] qd. Assessment & Plan (06/03/2020 7:38 AM REEL SYSTEM OPERATOR): bds checked by pcp in past, is taking ca and vit d and pcp checked vit D and PTH per pt was wnl. Her pcp started her on alendronate 70mg po qweek. Taking ca + vit d 1200mg qd. Assessment & Plan (03/25/2020 8:34 AM REEL SYSTEM OPERATOR): bds checked by pcp in past, is taking ca and vit d and pcp checked vit D and PTH per pt was wnl. Her pcp started her on alendronate 70mg po qweek. Taking ca + vit d 1200mg qd. Assessment & Plan (03/24/2020 7:29 AM REEL SYSTEM OPERATOR): bds checked by pcp in past, [...] qd. Assessment & Plan (04/20/2019 4:56 PM REEL SYSTEM OPERATOR): bds checked by pcp in past, [...] pcp. Assessment & Plan (06/03/2020 7:37 AM REEL SYSTEM OPERATOR): Was advised in past to get chest CT to r/o aortic aneurysm, to discuss with pcp. Assessment & Plan (03/25/2020 8:33 AM REEL SYSTEM OPERATOR): Was advised in past to get chest CT to r/o aortic aneurysm, to discuss with pcp. Assessment & Plan (03/24/2020 7:29 AM REEL SYSTEM OPERATOR): Was advised in past to get [...] pcp. Assessment & Plan (04/20/2019 4:57 PM REEL SYSTEM OPERATOR): Advised to get chest CT to r/o aortic aneurysm, to discuss with pcp. Assessment & Plan (10/31/2018 7:38 AM CDT): Advised to get chest CT to r/o aortic aneurysm, to discuss with pcp. Encounter for long-term (current) use of medicat ions 01/31/2017 Assessment & Plan (05/28/2022 8:07 AM REEL SYSTEM OPERATOR): Quant gold neg 12/2019 Hep B [...] showed osteoporosis [facility] 08/2019---[facility] labs reveal positive anti-CARD STRIPPER antibody which is likely a false positive due to negative ASHLEY. Her father had psoriasis, pt changed from ra to PsA on 03/25/2020. Assessment & Plan (02/26/2022 8:16 AM REEL SYSTEM OPERATOR): Quant gold neg 12/2019 Hep B [...] showed osteoporosis [facility] 08/2019---[facility] labs reveal positive anti-CARD STRIPPER antibody which is likely a false positive due to negative SAHLEY. Her father had psoriasis, pt changed from [...] showed osteoporosis [facility] 08/2019---[facility] labs reveal positive anti-CARD STRIPPER antibody which is likely a false positive [...] showed osteoporosis [facility] 08/2019---[facility] labs reveal positive anti-CARD STRIPPER antibody which is likely a false positive [...] showed osteoporosis [facility] 08/2019---[facility] labs reveal positive anti-CARD STRIPPER antibody which is likely a false positive [...] showed osteoporosis [facility] 08/2019---[facility] labs reveal positive anti-CARD STRIPPER antibody which is likely a false positive due to negative ASHLEY. Her father had psoriasis, pt changed from ra to PsA on 03/25/2020. Assessment & Plan (06/28/2021 8:44 AM REEL SYSTEM OPERATOR): Quant gold neg 12/2019 Hep B [...] showed osteoporosis [facility] 08/2019---[facility] labs reveal positive anti-CARD STRIPPER antibody which is likely a false positive due to negative ASHLEY. Her father had psoriasis, pt changed from ra to PsA on 03/25/2020. Assessment & Plan (06/15/2021 10:44 AM REEL SYSTEM OPERATOR): Quant gold neg 12/2019 Hep B [...] showed osteoporosis [facility] 08/2019---[facility] labs reveal positive anti-CARD STRIPPER antibody which is likely a false positive due to negative ASHLEY. Her father had psoriasis, pt changed from ra to PsA on 03/25/2020. Assessment & Plan (06/09/2021 10:15 AM REEL SYSTEM OPERATOR): Quant gold neg 12/2019 Hep B [...] showed osteoporosis [facility] 08/2019---[facility] labs reveal positive anti-CARD STRIPPER antibody which is likely a false positive due to negative ASHLEY. Her father had psoriasis, pt changed from ra to PsA on 03/25/2020. Assessment & Plan (06/09/2021 8:29 AM REEL SYSTEM OPERATOR): Quant gold neg 12/2019 Hep B [...] showed osteoporosis [facility] 08/2019---[facility] labs reveal positive anti-CARD STRIPPER antibody which is likely a false positive due to negative ASHLEY. Her father had psoriasis, pt changed from ra to PsA on 03/25/2020. Assessment & Plan (05/04/2021 8:19 AM REEL SYSTEM OPERATOR): Quant gold neg 12/2019 Hep B [...] showed osteoporosis [facility] 08/2019---[facility] labs reveal positive anti-CARD STRIPPER antibody which is likely a false positive due to negative ASHLEY. Her father had psoriasis, pt changed from ra to PsA on 03/25/2020. Assessment & Plan (03/31/2021 9:20 AM REEL SYSTEM OPERATOR): Quant gold neg 12/2019 Hep B [...] showed osteoporosis [facility] 08/2019---[facility] labs reveal positive anti-CARD STRIPPER antibody which is likely a false positive [...] showed osteoporosis [facility] 08/2019---[facility] labs reveal positive anti-CARD STRIPPER antibody which is likely a false positive [...] showed osteoporosis [facility] 08/2019---[facility] labs reveal positive anti-CARD STRIPPER antibody which is likely a false positive [...] showed osteoporosis [facility] 08/2019---[facility] labs reveal positive anti-CARD STRIPPER antibody which is likely a false positive [...] showed osteoporosis [facility] 08/2019---[facility] labs reveal positive anti-CARD STRIPPER antibody which is likely a false positive due to negative ASHLEY. Her father had psoriasis, pt changed from ra to PsA on 03/25/2020. Assessment & Plan (06/03/2020 2:56 PM REEL SYSTEM OPERATOR): Quant gold neg 12/2019 Hep B [...] showed osteoporosis [facility] 08/2019---[facility] labs reveal positive anti-CARD STRIPPER antibody which is likely a false positive due to negative ASHLEY. Her father had psoriasis, pt changed from ra to PsA on 03/25/2020. Assessment & Plan (03/25/2020 3:03 PM REEL SYSTEM OPERATOR): Quant gold neg 12/2019 HLA B27 [...] showed osteoporosis [facility] 08/2019---[facility] labs reveal positive anti-CARD STRIPPER antibody which is likely a false positive due to negative ASHLEY. Her father had psoriasis, pt changed from ra to PsA on 03/25/2020. Assessment & Plan (03/24/2020 7:28 AM REEL SYSTEM OPERATOR): Quant gold neg 12/2019 HLA B27 [...] showed osteoporosis [facility] 08/2019---[facility] labs reveal positive anti-CARD STRIPPER antibody which is likely a false positive [...] showed osteoporosis [facility] 08/2019---[facility] labs reveal positive anti-CARD STRIPPER antibody which is likely a false positive [...] showed osteoporosis [facility] 08/2019---[facility] labs reveal positive anti-CARD STRIPPER antibody which is likely a false positive [...] showed osteoporosis [facility] 08/2019---[facility] labs reveal positive anti-CARD STRIPPER antibody which is likely a false positive [...] showed osteoporosis [facility] 08/2019---[facility] labs reveal positive anti-CARD STRIPPER antibody which is likely a false positive [...] showed osteoporosis [facility] 08/2019---[facility] labs reveal positive anti-CARD STRIPPER antibody which is likely a false positive [...] osteoporosis Assessment & Plan (04/20/2019 4:59 PM REEL SYSTEM OPERATOR): Quant gold neg 10/2018. TPMT nl [...] 01/31/2017 Assessment & Plan (05/28/2022 8:05 AM REEL SYSTEM OPERATOR): Images from the original note were not included. Had orencia infusion 05/02/2022. Continue orencia monotherapy. Off arava due to lipase elevation. Seeing gi at [facility] now. [place] and egd utd and nl in past year per pt. Had a nl pancreatic US recently with gi. Past serologies: [facility] panel 08/2019---labs reveal positive anti-CARD STRIPPER antibody which is likely a false positive due to negative ASHLEY. RF neg but has a possible family hx of psoriatic arthritis (father) so if she develops psoriasis diagnosis will change to psoriatic arthritis. Rt hand US 09/2019 showed: F/u 1 month. Assessment & Plan (02/26/2022 12:12 PM REEL SYSTEM OPERATOR): Images from the original note were not included. High cdai. Her orencia is scheduled tomorrow. Continue orencia monotherapy. Off arava due to lipase elevation. Seeing gi at [facility] now. [place] and egd utd and nl in past year per pt. Had a nl pancreatic US recently with gi. She could be flaring up since her orencia is due tomorrow, overall she still feels that it is helping her joints. Past serologies: [facility] panel 08/2019---labs reveal positive anti-CARD STRIPPER antibody which is likely a false positive [...] complications or infections. Seeing gi at [facility] now for her elevated lipase. [place] and egd utd and nl in past year per pt. If labs stable will restart low dose arava 10mg po every day. To stay off orencia until recovered from rt knee surgery. Past serologies: [facility] panel 08/2019---labs reveal positive anti-CARD STRIPPER antibody which is likely a false positive [...] is scheduled tomorrow. Seeing gi at [facility] now. [place] and egd utd and nl in past year per pt. Due to burden of dz will give her a short course of oral prednisone. Discussed risks and se of systemic steroids. Past serologies: [facility] panel 08/2019---labs reveal positive anti-CARD STRIPPER antibody which is likely a false positive [...] is scheduled tomorrow. Seeing gi at [facility] now. [place] and egd utd and nl in past year per pt. Due to burden of dz will give her a short course of oral prednisone. Discussed risks and se of systemic steroids. Past serologies: [facility] panel 08/2019---labs reveal positive anti-CARD STRIPPER antibody which is likely a false positive [...] gi dr arias for her pancreatitis . [place] and egd utd and nl in past year per pt. Seen with dr woodruff today. Past serologies: [facility] panel 08/2019---labs reveal positive anti-CARD STRIPPER antibody which is likely a false positive due to negative ASHLEY. RF neg but has a possible family hx of psoriatic arthritis (father) so if she develops psoriasis diagnosis will change to psoriatic arthritis. Rt hand US 09/2019 showed: F/u 1 month. Assessment & Plan (06/28/2021 10:22 AM REEL SYSTEM OPERATOR): Images from the original note were [...] Past serologies: [facility] panel 08/2019---labs reveal positive anti-CARD STRIPPER antibody which is likely a false positive due to negative ASHLEY. RF neg but has a possible family hx of psoriatic arthritis (father) so if she develops psoriasis diagnosis will change to psoriatic arthritis. Rt hand US 09/2019 showed: F/u 1 month. Assessment & Plan (06/15/2021 10:46 AM REEL SYSTEM OPERATOR): Images from the original note were [...] Past serologies: [facility] panel 08/2019---labs reveal positive anti-CARD STRIPPER antibody which is likely a false positive due to negative ASHLEY. RF neg but has a possible family hx of psoriatic arthritis (father) so if she develops psoriasis diagnosis will change to psoriatic arthritis. Rt hand US 09/2019 showed: F/u 1 month. Assessment & Plan (06/09/2021 10:16 AM REEL SYSTEM OPERATOR): Images from the original note were [...] Past serologies: [facility] panel 08/2019---labs reveal positive anti-CARD STRIPPER antibody which is likely a false positive due to negative ASHLEY. RF neg but has a possible family hx of psoriatic arthritis (father) so if she develops psoriasis diagnosis will change to psoriatic arthritis. Rt hand US 09/2019 showed: F/u 1 month. Assessment & Plan (06/09/2021 8:29 AM REEL SYSTEM OPERATOR): Images from the original note were [...] Past serologies: [facility] panel 08/2019---labs reveal positive anti-CARD STRIPPER antibody which is likely a false positive due to negative ASHLEY. RF neg but has a possible family hx of psoriatic arthritis (father) so if she develops psoriasis diagnosis will change to psoriatic arthritis. Rt hand US 09/2019 showed: F/u 1 month. Assessment & Plan (05/05/2021 10:11 PM REEL SYSTEM OPERATOR): Images from the original note were [...] Past serologies: [facility] panel 08/2019---labs reveal positive anti-CARD STRIPPER antibody which is likely a false positive due to negative ASHLEY. RF neg but has a possible family hx of psoriatic arthritis (father) so if she develops psoriasis diagnosis will change to psoriatic arthritis. Rt hand US 09/2019 showed: F/u 1 month. Assessment & Plan (03/31/2021 9:24 AM REEL SYSTEM OPERATOR): Images from the original note were [...] Past serologies: [facility] panel 08/2019---labs reveal positive anti-CARD STRIPPER antibody which is likely a false positive [...] Past serologies: [facility] panel 08/2019---labs reveal positive anti-CARD STRIPPER antibody which is likely a false positive [...] Past serologies: [facility] panel 08/2019---labs reveal positive anti-CARD STRIPPER antibody which is likely a false positive [...] Past serologies: [facility] panel 08/2019---labs reveal positive anti-CARD STRIPPER antibody which is likely a false positive due to negative ASHLEY. RF neg but has a possible family hx of psoriatic arthritis (father) so if she develops psoriasis diagnosis will change to psoriatic arthritis. Rt [facility] 09/2019 showed: Assessment & Plan (07/18/2020 8:24 AM CDT): Images from the original note were not included. High cdai. On imuran to 100mg bid and Stelara. Discussed potential se and risks of stelara tx. To see her gi for her diarrhea, she is due for colonoscopy. Continue imuran. To get covid 19 vaccine when available. Past serologies: [facility] panel 08/2019---labs reveal positive anti-CARD STRIPPER antibody which is likely a false positive due to negative ASHLEY. RF neg but has a possible family hx of psoriatic arthritis (father) so if she develops psoriasis diagnosis will change to psoriatic arthritis. Rt [facility] 09/2019 showed: Assessment & Plan (06/03/2020 5:27 PM REEL SYSTEM OPERATOR): Images from the original note were [...] Past serologies: [facility] panel 08/2019---labs reveal positive anti-CARD STRIPPER antibody which is likely a false positive due to negative ASHLEY. RF neg but has a possible family hx of psoriatic arthritis (father) so if she develops psoriasis diagnosis will change to psoriatic arthritis. Rt [facility] 09/2019 showed: Assessment & Plan (03/25/2020 3:01 PM REEL SYSTEM OPERATOR): Images from the original note were [...] Past serologies: [facility] panel 08/2019---labs reveal positive anti-CARD STRIPPER antibody which is likely a false positive due to negative ASHLEY. RF neg but has a possible family hx of psoriatic arthritis (father) so if she develops psoriasis diagnosis will change to psoriatic arthritis. Rt [facility] 09/2019 showed: Assessment & Plan (03/24/2020 7:29 AM REEL SYSTEM OPERATOR): Images from the original note were not included. Bernardino zapien Wants to go back to sq orencia, gave pt 1 mo of samples and will start approval. Can't come in for iv orencia, her dad is on hospice. Increase imuran to 100mg bid, check cbc/cmp in 2 weeks and f/u in 1month. Past serologies: [facility] panel 08/2019---labs reveal positive anti-CARD STRIPPER antibody which is likely a false positive due to negative ASHLEY. RF neg but has a possible family hx of psoriatic arthritis (father) so if she develops psoriasis diagnosis will change to psoriatic arthritis. Rt [facility] 09/2019 showed: Assessment & Plan (02/19/2020 11:34 AM CDT): Bernardino zapien Wants to go back to sq orencia, gave pt 1 mo of samples and will start approval. Can't come in for iv orencia, her dad is on hospice. Increase imuran to 100mg bid, check cbc/cmp in 2 weeks and f/u in 1month. Past serologies: [facility] panel 08/2019---labs reveal positive anti-CARD STRIPPER antibody which is likely a false positive due to negative ASHLEY. RF neg but has a possible family hx of psoriatic arthritis (father) so if she develops psoriasis diagnosis will change to psoriatic arthritis. Rt [facility] 09/2019 showed: Assessment & Plan (01/22/2020 12:51 [...] Past serologies: [facility] panel 08/2019---labs reveal positive anti-CARD STRIPPER antibody which is likely a false positive [...] every day. [facility] panel 08/2019---labs reveal positive anti-CARD STRIPPER antibody which is likely a false positive due to negative ASHLEY. Otherwise labs look good. No evidence of a new autoimmune connective tissue disease. Cont orencia sq and imuran 100mg po qhs. [place] better on iv orencia, will change from [...] since resolved. [facility] panel 08/2019---labs reveal positive anti-CARD STRIPPER antibody which is likely a false positive [...] of orencia. [facility] panel 08/2019---labs reveal positive anti-CARD STRIPPER antibody which is likely a false positive [...] of orencia. [facility] panel 08/2019---labs reveal positive anti-CARD STRIPPER antibody which is likely a false positive [...] wnl. Assessment & Plan (04/23/2019 1:46 PM REEL SYSTEM OPERATOR): High cdai. On orencia IV but [...] citrate. Assessment & Plan (06/03/2020 2:56 PM REEL SYSTEM OPERATOR): Multiple kidney stones for over 10 [...] Cancer Father Keegan Mcgregor Obesity Father Keegan Fajardoariana Arthritis Father's Brother Cash Balbir Arthritis Father's Sister 1 AquilesEvangelina Smith Diabetes Father's Sister 2 Michelle Gary Arthritis Maternal Grandfather López Foster Cancer Maternal Grandfather Rene Foster Arthritis Maternal Grandmother Ondina Foster Cancer [...] of Crohn's disease; Arthritis Paternal Grandfather Nestor Cervantesjesica Cancer Paternal Grandfather Nestor Maganadick Alzheimer's disease Paternal Grandmother Valerie jennings Arthritis Paternal Grandmother aVlerie Mcgregor Memory loss Paternal Grandmother Valerie Mcgregor Rashes / Skin problems Son Dhaval Walton Colon cancer Neg Hx Esophageal cancer Neg Hx Liver cancer Neg Hx Relation Name Status Comments Father Keegan Mcgregor Father's Brother Cash Maganadick Father's Sister 1 Aquiles Smith Father's Sister 2 Michelle Gary Maternal Grandfather Rene Noriega Maternal Grandmother Ondina Foster Mother Aggie White Other 1 Other 2 Other 3 Other 4 Other 5 Paternal Grandfather Nestor Mcgregor Paternal Grandmother Valerie Mcgregor Son Dhaval Walton Social History Tobacco Use [...] on file Legal Sex Female 9:24 PM REEL SYSTEM OPERATOR Gender Identity Female 08/14/2022 11:32 AM [...] 2023 0, 02/05/2018, 01/30/2017, Additional history exists Zoster Vaccine (1 of 2) 2024 DTaP/Tdap/Td Vaccine (2 - Td or Tdap) [...] HEPATITIS C AB Routine 06/29/2015 2:43 PM REEL SYSTEM OPERATOR from Last 3 Months or Most Recently Relevant to Health Maintenance Results * ThinPrep Pap with HPV (12/24/2018 3:41 PM CDT) 12/24/2018 3:41 PM CDT 12/25/2018 8:54 AM CDT [facility] - 12/26/2018 2:53 PM CDT [facility] Department of Pathology [address] [place] [address] [id number] Final Report with Addendum Patient Name: JULIAN SAUER Address: [address] [place] [address] Gender: F : 1975 (Age: 43) Service: Laboratory Location: Lab [facility] #: [id number] Patient Type: Ref Lab Taken: 12/24/2018 Received: 12/25/2018 Accessioned:: 12/26/2018 Reported: 12/26/2018 Physician(s): Curtis Oseguera M.D. [facility] Diagnosis: Source of Specimen: SCREENING IMAGED PAP w/ HPV Specimen Adequacy: - Satisfactory for evaluation; endocervical/transformation zone component present General Category: - Negative for intraepithelial lesion or malignancy NAEEM Montano(ASCP) Report Electronically Reviewed and Signed Out By NAEEM Montano(ASCP) 12/26/2018 14:53:08 Addenda: HPV RNA Test Interpretation [...] determined by the Surgical Pathology Department at [facility] as part of an ongoing quality assurance coach program and in compliance with federally mandated [...] characteristics determined by the Surgical Pathology Department [facility]. It has not been cleared or approved by the U. S. Food and Drug Administration. Curtis Oseguera MD LAB CYTOLOGY ORDERABLES Final Result Performing Organization Address City/[facility]/ZIP Co de Phone Number [address] [phone] * Serum Hepatitis C ab (06/29/2015 2:43 PM REEL SYSTEM OPERATOR) HCV ab Non-Reacti ve Non-Reacti ve HISTORICAL RESULTS Serum 06/29/2015 2:43 PM REEL SYSTEM OPERATOR Miriam VALLE LAB BLOOD ORDERAB LES Final Result Performing Organization Address City/State/[facility] Co de Phone Number HISTORICAL RESULTS from Last 3 Months or Most Recently Relevant to Health Maintenance Insurance [facility] AddShoppers ID AddShoppers ID [employer] [facility] Care Teams Chemist Relationship Specialty Start Date End Date Bhupinder Tobias MD [address] [address] PCP - General Internal Medicine 06/03/20 Cash Woodruff III, MD [address] [address] Rheumatology 04/12/17 Jorge Aguiar MD [address] [place] [id number] Consulting Physician Urology 11/10/20 Khoa Arias MD [address] [facility] [[email or web address] [address] [place] [address] Referring Physician Gastroenterology 03/20/21
[2024-06-12 13:20] VITALS: BP 139/95; PULSE 102; RESP 18; TEMP 35.6; O2SAT 99; BMI 36.3
[2024-06-12] MEDS: LACTATED RINGERS 1,000 ML 150 ML IV CONT (13:44)
--- NOTE | 2024-06-12 15:02 | WPDANESEPPF ---
Anes - Initial Pre Proc Eval Procedure: Operation Date: 06/12/24 14:30 Proposed Procedures p Esophagogastroduodenoscopy - Gagandeep Bauman MD Date/Time: 06/12/24 15:02 Surgeon: Gagandeep Bauman MD Pre Op Diagnosis: hiatal hernia Patient Data Age: 49 Gender: F Height: 1.68 m Weight: 102.2 kg Last Vital Signs Temp 96.1 F L 06/12/24 13:20 Pulse 102 H 06/12/24 13:20 Resp 18 06/12/24 13:20 BP 139/95 H 06/12/24 13:20 Pulse Ox 99 06/12/24 13:20 O2 Del Method Room Air 06/12/24 13:20 Allergies Allergy/AdvReac Type Severity Reaction Status Date / Time No Known Allergies Allergy Verified 06/12/24 13:28 Home Medications ?Medication ?Instructions ?Recorded ?Confirmed ?Type bupropion HCl 300 mg 24 hr tablet, 300 mg PO DAILY 05/02/20 06/11/24 History extended release (Wellbutrin XL) potassium citrate 15 mEq (1,620 1,620 mg PO BID 05/02/20 06/11/24 History mg) tablet,extended release propranolol 10 mg tablet 10 mg PO QAM 05/02/20 06/12/24 History trazodone 100 mg tablet 100 mg PO HS 05/02/20 06/12/24 History alprazolam 0.5 mg tablet 0.5 mg PO TID PRN Anxiety 09/15/20 06/12/24 History cholecalciferol (vitamin D3) 125 5,000 unit PO DAILY 09/15/20 06/11/24 History mcg (5,000 unit) tablet (Vitamin D3) cyanocobalamin (vitamin B-12) 1,000 mcg PO DAILY 09/15/20 06/11/24 History 1,000 mcg tablet pantoprazole 40 mg tablet,delayed See Rx Instructions .Route 12/20/23 06/11/24 Rx release .COMPLEX #60 tabs sumatriptan succinate 6 mg/0.5 mL See Rx Instructions .Route 02/18/24 06/11/24 Rx subcutaneous pen injector .COMPLEX #2 mL ondansetron HCl 4 mg tablet 4 - 8 mg (1 - 2 x 4 mg) PO Q8H PRN 03/20/24 06/11/24 Rx nausea and vomiting #20 tabs dicyclomine 20 mg tablet 20 mg PO TID PRN abdominal pain 04/20/24 06/11/24 Rx #120 tabs metoclopramide HCl 10 mg tablet See Rx Instructions PO .COMPLEX 04/21/24 06/12/24 Rx (Reglan) nausea and vomiting #30 tabs duloxetine 30 mg capsule,delayed 30 mg PO DAILY 04/29/24 06/11/24 History release lactulose 20 gram/30 mL oral 20 g (30 mL) PO BID #1,200 mL 05/06/24 06/11/24 Rx solution ketorolac 10 mg tablet 10 mg PO Q6H pain (moderate, level 05/21/24 06/11/24 Rx 4-6 5 days #20 tabs Patient hx anesthesia problems: none Family hx anesthesia problems: none Results Review: All pre-operative results and documents have been reviewed as part of the pre-operative evaluation. [facility] Past Medical History Medical History Aspiration into airway Colon cancer screening Elevated lipase Decreased appetite LLQ pain Arthritis Osteoporosis Psoriasis Excessive thirst UTI (urinary tract infection) IBS (irritable bowel syndrome) Atrial tachycardia Hoarseness Short-term memory loss Chills History of kidney stones Abdominal pain in female Abnormal serum lipase level Abnormal weight gain Acute cystitis without hematuria Acute diverticulitis Acute non-recurrent pansinusitis Acute shoulder pain Adult idiopathic generalized osteoporosis Age-related osteoporosis with current pathological fracture, unspecified ankle and foot, initial encounter for fracture Anemia Anxiety Arthralgia Arthritis of both knees Bilateral tinnitus Body mass index (bmi) 39.0-39.9, adult (01/12/19) Bone spur of left foot Chronic migraine Chronic narcotic use Chronic pain syndrome Cyst of ovary Diarrhea Dietary counseling and surveillance (08/25/15) Diverticulitis of large intestine without perforation or abscess Diverticulosis of intestine, part unspecified, without perforation or abscess with bleeding Duodenal ulcer Dysphagia Dysuria Meredith-Danlos syndrome Epigastric pain Establishing care with new doctor, encounter for Fatigue Fear of flying Fibromyalgia Gastric ulcer Gastroesophageal reflux disease Generalized abdominal pain Generalized anxiety disorder History of dislocation of knee Hyperextension deformity of knee Hyperthyroidism Hypokalemia Hypovitaminosis D Immunosuppressed status Impingement syndrome of right shoulder Irregular menses 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 syndrome with constipation 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 diarrhea 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 Low TSH level Low back pain Luteal cystic ovary disease Microscopic hematuria Migraine, unspecified, not intractable, without status migrainosus Multinodular goiter Muscle weakness of lower extremity Musculoskeletal pain Nausea Nephrolithiasis Nonintractable migraine Osteoarthritis of spine with radiculopathy, lumbar region Other chronic pain Overweight (11/22/16) PUD (peptic ulcer disease) Pain in both hands Pain of both hip joints Pain of left heel Pneumonia due to infectious organism Polyuria Prepatellar bursitis of both knees Prepatellar bursitis, left knee Rheumatoid arthritis of multiple sites with negative rheumatoid factor Rheumatoid arthritis of unspecified site with involvement of other organs and systems Right lower quadrant abdominal pain Swelling Swelling of finger joint of left hand Thyroid nodule Urinary symptom or sign Urinary tract infection without hematuria Weight loss Yeast vaginitis Surgical History Surgical History History of hysterectomy 2022 History of knee surgery ANUSHA reconstruction. History of lithotripsy x4. Previous section History of colonoscopy History of tonsillectomy Family History Family History Mother Patient's mother is in good health Family history of arthritis Father Patient's father is in good health Family history of alcoholism Family history of arthritis Family history of obesity Family history of chronic obstructive pulmonary disease Sibling Patient's sister is in good health Patient's brother is in good health Grandparent Family history of Alzheimer's disease Family history of lung cancer Other Family history of attention deficit hyperactivity disorder (ADHD) Social History Social History Smoking packs per day: 0.5 Smoking cigarettes per day: 10.0 Years smoked: 20 Smoking pack-years: 10.00 Smoking status: Former smoker Tobacco type: cigarettes Second hand tobacco smoke exposure: Yes Smoking end date: 06/04/12 Alcohol intake: never Drinks per week: 2 Alcohol use details: 2/MONTH Substance use: current Substance use type: does not use Other substance usage details: STOPPED GUMMIES MAY 2023 Do You Feel Safe in your Home?: Yes Lack of Transportation: No Lack of Food: Never True Current Housing: I Have Housing Concerned About Future Housing: No Difficulty Paying Gas/Electric Bills: No Difficulty Paying for Meds: No Currently Unemployed: No Education: Bachelor's Degree Difficulty w/ Childcare or Family Care: No Living arrangements: alone Additional living arrangements comments: AND CHILDREN Occupation/Education: 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 Gender identity (if verbalized by the patient): Female Sexual Orientation (if Verbalized by the Patient): Straight or Heterosexual Spiritual care concerns: No Anes - Eval Final PreProcedure Day of Procedure 06/12/24 15:02 Patient weight: obese Lungs: normal air movement Airway: Mallampati scale class II Neurological: alert and oriented Last oral intake: >/= 8 hours ASA classification: IV Emergent: no Anesthetic plan: proceed Anesthesia type and monitoring: general GIVS and standard monitoring Results Review: All pre-operative results and documents have been reviewed as part of the pre-operative evaluation. Meredith Sampson RA, BMI 36, freq ureteral stones, hx of aspiration pneumonia during nighttime. Pt had recent EGD w residual food in stomach. Today she has been NPO w her last bit of solids francisco slaw yest at 11 am. Discussed w pt and Dr. Bauman. Pt should be adequately prepared for this, if any evidence of food in stomach, procedure will be aborted and airway supported as needed. Informed Consent: The patient's anesthetic plan and its attendant risks and benefits were discussed with the patient/family/POA. Questions were solicited and answers provided to the satisfaction of the patient/family/POA.
--- NOTE | 2024-06-12 15:07 | P.HP_ITS ---
H&P: HPI History of Present Illness Date/Time: 06/12/24 15:07 Chief Complaint: GERD Narrative: on 04/30/2024 an EGD was attempted but had to be aborted due to desaturation and the finding of food in the stomach. She has been on a prolonged fasting and is here to attempt an EGD to evaluate GERD. She was found to have small hiatal hernia In her last EGD.. Review of Systems Review of Systems: All systems reviewed & are unremarkable except as noted in HPI and below [facility] Past Medical History Medical History Aspiration into airway Colon cancer screening Elevated lipase Decreased appetite LLQ pain Arthritis Osteoporosis Psoriasis Excessive thirst UTI (urinary tract infection) IBS (irritable bowel syndrome) Atrial tachycardia Hoarseness Short-term memory loss Chills History of kidney stones Abdominal pain in female Abnormal serum lipase level Abnormal weight gain Acute cystitis without hematuria Acute diverticulitis Acute non-recurrent pansinusitis Acute shoulder pain Adult idiopathic generalized osteoporosis Age-related osteoporosis with current pathological fracture, unspecified ankle and foot, initial encounter for fracture Anemia Anxiety Arthralgia Arthritis of both knees Bilateral tinnitus Body mass index (bmi) 39.0-39.9, adult (01/12/19) Bone spur of left foot Chronic migraine Chronic narcotic use Chronic pain syndrome Cyst of ovary Diarrhea Dietary counseling and surveillance (08/25/15) Diverticulitis of large intestine without perforation or abscess Diverticulosis of intestine, part unspecified, without perforation or abscess with bleeding Duodenal ulcer Dysphagia Dysuria Meredith-Danlos syndrome Epigastric pain Establishing care with new doctor, encounter for Fatigue Fear of flying Fibromyalgia Gastric ulcer Gastroesophageal reflux disease Generalized abdominal pain Generalized anxiety disorder History of dislocation of knee Hyperextension deformity of knee Hyperthyroidism Hypokalemia Hypovitaminosis D Immunosuppressed status Impingement syndrome of right shoulder Irregular menses 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 syndrome with constipation 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 diarrhea 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 Low TSH level Low back pain Luteal cystic ovary disease Microscopic hematuria Migraine, unspecified, not intractable, without status migrainosus Multinodular goiter Muscle weakness of lower extremity Musculoskeletal pain Nausea Nephrolithiasis Nonintractable migraine Osteoarthritis of spine with radiculopathy, lumbar region Other chronic pain Overweight (11/22/16) PUD (peptic ulcer disease) Pain in both hands Pain of both hip joints Pain of left heel Pneumonia due to infectious organism Polyuria Prepatellar bursitis of both knees Prepatellar bursitis, left knee Rheumatoid arthritis of multiple sites with negative rheumatoid factor Rheumatoid arthritis of unspecified site with involvement of other organs and systems Right lower quadrant abdominal pain Swelling Swelling of finger joint of left hand Thyroid nodule Urinary symptom or sign Urinary tract infection without hematuria Weight loss Yeast vaginitis Surgical History Surgical History History of hysterectomy 2022 History of knee surgery ANUSHA reconstruction. History of lithotripsy x4. Previous section History of colonoscopy History of tonsillectomy Family History Family History Mother Patient's mother is in good health Family history of arthritis Father Patient's father is in good health Family history of alcoholism Family history of arthritis Family history of obesity Family history of chronic obstructive pulmonary disease Sibling Patient's sister is in good health Patient's brother is in good health Grandparent Family history of Alzheimer's disease Family history of lung cancer Other Family history of attention deficit hyperactivity disorder (ADHD) Social History Social History Smoking packs per day: 0.5 Smoking cigarettes per day: 10.0 Years smoked: 20 Smoking pack-years: 10.00 Smoking status: Former smoker Tobacco type: cigarettes Second hand tobacco smoke exposure: Yes Smoking end date: 06/04/12 Alcohol intake: never Drinks per week: 2 Alcohol use details: 2/MONTH Substance use: current Substance use type: does not use Other substance usage details: STOPPED GUMMIES MAY 2023 Do You Feel Safe in your Home?: Yes Lack of Transportation: No Lack of Food: Never True Current Housing: I Have Housing Concerned About Future Housing: No Difficulty Paying Gas/Electric Bills: No Difficulty Paying for Meds: No Currently Unemployed: No Education: Bachelor's Degree Difficulty w/ Childcare or Family Care: No Living arrangements: alone Additional living arrangements comments: AND CHILDREN Occupation/Education: retired 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 Gender identity (if verbalized by the patient): Female Sexual Orientation (if Verbalized by the Patient): Straight or Heterosexual Spiritual care concerns: No Meds Home Medications and Allergies Home Medications ?Medication ?Instructions ?Recorded ?Confirmed ?Type bupropion HCl 300 mg 24 hr tablet, 300 mg PO DAILY 05/02/20 06/11/24 History extended release (Wellbutrin XL) potassium citrate 15 mEq (1,620 1,620 mg PO BID 05/02/20 06/11/24 History mg) tablet,extended release propranolol 10 mg tablet 10 mg PO QAM 05/02/20 06/12/24 History trazodone 100 mg tablet 100 mg PO HS 05/02/20 06/12/24 History alprazolam 0.5 mg tablet 0.5 mg PO TID PRN Anxiety 09/15/20 06/12/24 History cholecalciferol (vitamin D3) 125 5,000 unit PO DAILY 09/15/20 06/11/24 History mcg (5,000 unit) tablet (Vitamin D3) cyanocobalamin (vitamin B-12) 1,000 mcg PO DAILY 09/15/20 06/11/24 History 1,000 mcg tablet pantoprazole 40 mg tablet,delayed See Rx Instructions .Route 12/20/23 06/11/24 Rx release .COMPLEX #60 tabs sumatriptan succinate 6 mg/0.5 mL See Rx Instructions .Route 02/18/24 06/11/24 Rx subcutaneous pen injector .COMPLEX #2 mL ondansetron HCl 4 mg tablet 4 - 8 mg (1 - 2 x 4 mg) PO Q8H PRN 03/20/24 06/11/24 Rx nausea and vomiting #20 tabs dicyclomine 20 mg tablet 20 mg PO TID PRN abdominal pain 04/20/24 06/11/24 Rx #120 tabs metoclopramide HCl 10 mg tablet See Rx Instructions PO .COMPLEX 04/21/24 06/12/24 Rx (Reglan) nausea and vomiting #30 tabs duloxetine 30 mg capsule,delayed 30 mg PO DAILY 04/29/24 06/11/24 History release lactulose 20 gram/30 mL oral 20 g (30 mL) PO BID #1,200 mL 05/06/24 06/11/24 Rx solution ketorolac 10 mg tablet 10 mg PO Q6H pain (moderate, level 05/21/24 06/11/24 Rx 4-6 5 days #20 tabs Allergies Allergy/AdvReac Type Severity Reaction Status Date / Time No Known Allergies Allergy Verified 06/12/24 13:28 Vital Signs Vital Signs - 24 hr 06/12/24 13:20 Temperature 96.1 F L Pulse Rate 102 H Respiratory Rate 18 Blood Pressure 139/95 H Pulse Oximetry 99 Oxygen Delivery Room Air Exam Narrative: APPEARANCE: Well appearing, no pain, no distress, well-nourished. HEAD: normocephalic, atraumatic. EYES: PERRLA/EOMI, conjunctivae clear. NOSE: Normal no drainage EARS:TMS clear with good light reflex. THROAT: Pharynx clear, no exudate. NECK: Supple. No adenopathy, no masses. RESPIRATORY: Airway patent, respirations nonlabored. Clear to auscultation bilaterally, no rales, rhonchi, wheezing. CARDIOVASCULAR: Regular rate and rhythm without murmurs rubs or gallops. ABDOMINAL: Soft, nontender, nondistended, normal bowel sounds MUSCULOSKELETAL: Left lateral CVA tenderness to palpation NEURO: Alert. Cranial nerves II through XII intact. Good gait. Good coordination SKIN: Warm, dry. Normal Color Assessment and Plan Assessment and plan (1) Gastroesophageal reflux disease: Qualifiers: Esophagitis presence: esophagitis presence not specified Qualified Code(s): K21.9 - Gastro-esophageal reflux disease without esophagitis Code(s): K21.9 - Gastro-esophageal reflux disease without esophagitis Status: Acute Assessment and Plan: The patient is deemed a good candidate for the procedure. Consent signed. Will proceed.
[2024-06-12 15:24] VITALS: BP 125/82; PULSE 89; RESP 19; O2SAT 97
[2024-06-12 15:34] VITALS: BP 127/82; PULSE 88; RESP 17; O2SAT 98
[2024-06-12 15:44] VITALS: BP 130/90; PULSE 90; RESP 18; O2SAT 96
== END 2024-06-12 15:50 | disposition home or self-care (01) ==
PROVIDERS: PCP Internal Medicine; Visit Provider Internal Medicine Gastroenterology
PROC: 0DJ08ZZ Inspection of Upper Intestinal Tract, Via Natural or Artificial Opening Endoscopic (ICD-10-PCS; CPT 43239; principal; 2024-06-12 14:30)
DX: K21.9 Gastro-esophageal reflux disease without esophagitis (principal); K44.9 Diaphragmatic hernia without obstruction or gangrene; K29.30 Chronic superficial gastritis without bleeding; Z87.891 Personal history of nicotine dependence
CPT/HCPCS: 43239; 88305; J2003; J2704; J7120

== ENCOUNTER 2024-08-26 16:19 | Emergency (ER) | payer OTHER, SELFPAY ==
--- NOTE | ~2024-08-26 | XR_ITS ---
HISTORY: R shoulder pain COMPARISON: None TECHNIQUE: 3 views of the right shoulder were performed FINDINGS: No acute fracture. The glenohumeral and acromioclavicular joint space is maintained The visualized portion of the adjacent right lung is clear. The humeral head is well seated within the glenoid fossa. IMPRESSION: No acute fracture or anterior dislocation. Reviewed, dictated and finalized at location A.
--- NOTE | ~2024-08-26 | CT_ITS ---
History: History of migraines PROCEDURE: CT head without contrast. COMPARISON: None TECHNIQUE: Axial imaging of the head performed from the skull base to the vertex without IV contrast. Sagittal a nd coronal reformations obtained. DLP: 605 mGy-cm FINDINGS: The ventricles are normal in size, shape and position. There is no mass, mass effect or midline shift. There is no abnormal extra-axial fluid collection or intracranial hemorrhage. Visualized paranasal sinuses are clear. The mastoid air cells are well aerated. No acute displaced fractures within the overlying cranium. Impression: No acute intracranial hemorrhage or suspicious mass effect. Reviewed, dictated and finalized at location A. Impression: No acute intracranial hemorrhage or suspicious mass effect.
--- NOTE | ~2024-08-26 | CT_ITS ---
History: Right-sided neck pain PROCEDURE: CT cervical spine without intravenous contrast. COMPARISON: None TECHNIQUE: Multiple contiguous axial images of the cervical spine were performed without the administration of i ntravenous contrast. DLP: 467 mGy-cm FINDINGS: Straightening and slight reversal of the normal curvature of the cervical spine is identified, likely muscular in origin. No acute fractures are present. The bilateral lung apices are unremarkable. No soft tissue abnormality is present. The airway is patent. Impression: Straightening and slight reversal of the normal curvature of the cervical spine, likely muscular in o rigin. No acute fracture. Reviewed, dictated and finalized at location A. Impression: Straightening and slight reversal of the normal curvature of the cervical spine , likely muscular in origin. No acute fracture.
--- NOTE | ~2024-08-26 | XR_ITS ---
CHEST RADIOGRAPH, PA AND LATERAL CLINICAL HISTORY: R rib cage pain . COMPARISON: 04/21/2024 TECHNIQUE: PA and lateral views of the chest. FINDINGS The cardiomediastinal silhouette is unremarkable. The lungs are clear. IMPRESSION: No focal infiltrate or effusion. Reviewed, dictated and finalized at location A.
--- OUTSIDE RECORDS SUMMARY | 2024-08-26 16:23 | XMS_ITS | Clinical Summary ---
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 Active pregabalin (LYRICA) 100 mg Capsule Take [...] Comments Blood Pressure 131/87 04/01/2019 10:31 AM SPIRAL WINDER Pulse 101 04/01/2019 10:31 AM SPIRAL WINDER Temperature 36.4 C (97.6 F) 12/29/2018 12:00 PM CDT Respiratory Rate 18 12/29/2018 12:00 PM CDT Oxygen Saturation 99% 12/29/2018 12:00 PM CDT Inhaled Oxygen Concentration - - Weight 90.5 kg (199 lb 9.6 oz) 04/01/2019 10:31 AM SPIRAL WINDER Height 170.7 cm (5' 7.2 ) 04/01/2019 10:31 AM CS T Body Mass Index 31.08 04/01/2019 10:31 AM SPIRAL WINDER Plan of Treatment Health Maintenance Due Date Last Done Comments HEPATITIS B VACCINES (1 of 3 - 19+ 3-dose series) 04/24 ZOSTER VACCINE (1 of 2) 1993 HPV/Cotest (21-29) 1995 CERVICAL CANCER SCREENING 2004 HPV/Cotest (30-65) 2004 PAP SMEAR 2004 BREAST CANCER SCREENING 2014 COLORECTAL SCREENING 2019 Colorectal Cancer Screening 2019 FIT-DNA Q 3 years 2019 FIT/FOBT Q 1 year 2019 Flex Sig/CT Colonography Q 5 years 2019 INFLUENZA VACCINE (#1) 2023 01/30/2017 DTAP/TDAP/TD VACCINES (2 - Td or Tdap) 05/10/2027 Insurance RX [employer] Commercial [employer] BLUE ACCESS/TRUE BLUE PPO BS BLUE ACCESS/TRUE BLUE PPO Advance Directives For more information, please contact: [phone] * Full Code (Latest Code Status on File) Date Activated Date Inactivated Comments 12/27/2018 10:12 AM 12/29/2018 7:43 PM Care Teams Assembler Mechanical Ordnance Relationship Specialty Start Date End Date Isaiah Quiros MD [address] [place] [address] PCP - General Internal Medicine 04/16/18
--- OUTSIDE RECORDS SUMMARY | 2024-08-26 16:23 | XMS_ITS ---
Author Organization [facility] [employer] [facility] Address [address] [place] [address] [address] Care Team Providers Care Requirements Manager Name Role Phone Jose Zhang DO Primary Care Provider Alix Romero Unavailable [phone] REASON FOR VISIT R/s due to emergency doctor's appt Social History Sex Assigned At : Social History Observation Description Sex Assigned At Female Encounters Encounter Location Date Provider Diagnosis [facility] [place] [id number] [facility] [address] [address] 08/17/2024 Alix Sanchez Plan Of Treatment Next Appt Details Provider Name:Alix benton, 09/23/2024 08:45:00 AM, [facility] [address], [facility] [address], [place], [address], Progress Notes * JULIAN SAUERDOB:1975 ( 49 yo F)Acc No.[id number]:08/17/2024 Patient: Armando GONZALEZJULIAN Provider: Joseph Sanchez :1975 A ge:49 Y S ex:Female Date:08/17/2024 Address:[address] [facility] Pcp:Jose Zhang DO Subjective: * Chief Complaints: * 1 . R/s due to emergency doctor's appt. * Medical History: Objective: * Vitals: Assessment: Plan: * Treatment: * Billing Information: * Visit Code: * Procedure Codes: * Electronic signature of Dakota Sanchez on 08/26/2024 at 04:23 PM CDT Sign off status: Pending * Provider: Joseph Sanchez Date: 0 08/17/2024 Generated for Tree regalado/Caryl/Dayna on: 0 08/26/2024 04:23 PM CDT
--- OUTSIDE RECORDS SUMMARY | 2024-08-26 16:24 | XMS_ITS | Patient Health Record ---
Author Organization [facility] Address [address] [facility] [address] [place] [address] Care Team Providers Care Dentist/Owner Name Role Phone Jose Zhang DO Primary Care Provider UnavailAlix Shre Unavailable [phone] Mario Diaz Unavailable [phone] Natty Grier Unavailable [phone] Chari Pappas Unavailable [phone] Migration, Provider Unavailable Unavailable Jyoti New Unavailable [phone] Allergies No Known Allergies Results Component Value Reference Range Notes UDT (Not yet reviewed by pro vider) Interpretation: Performing Lab: Notes/Report: THC p 0 - 50 ng/ml Cocaine n 0 - 300 ng/ml Amphetamine n 0 - 1000 ng/ml Buprenorphine (BUP) n 0 - 10 ng/ml Secobarbital (Bar) n 0 - 300 ng/ml Oxazepam (BZO) n 0 - 300 ng/ml 8-mjdgrdclow-3,4-qlgcbger-8, 3-diphenylpyrrolidine (EDDP) n 0 - 300 ng/ml Methamphetamine (MET) n 0 - 1000 ng/ml Methylenedioxymethamphetamine (MDMA) n 0 - 500 ng/ml Morphine (MOP 300/[id number]) p 0 - 300 ng/ml Methadone (MTD) n 0 - 300 ng/ml Phencyclidine (PCP) n 0 - 25 ng/ml Nortriptyline (TCA) n 0 - 1000 ng/ml Oxycodone n 0 - 300 ng/ml x n 0 - 300 ng/ml DRUG SCREEN, 14 DRUGS (DETEC TIMED), URINE [...] Oxazepam (BZO) p 0 - 300 ng/ml 9-pzyrrsywqg-9,7-qijttxay-6, 3-diphenylpyrrolidine (EDDP) n 0 - 300 ng/ml Methamphetamine (MET) n 0 - 1000 ng/ml Methylenedioxymethamphetamine (MDMA) n 0 - 500 ng/ml Morphine (MOP 300/[id number]) n 0 - 300 ng/ml Methadone (MTD) n 0 - 300 ng/ml Phencyclidine (PCP) n 0 - 25 ng/ml Nortriptyline (TCA) n 0 - 1000 ng/ml Oxycodone n 0 - 300 ng/ml x n 0 - 300 ng/ml UDT Reviewed date:11/20/2023 09:30:02 AM Interpretation: Performing Lab: Notes/Report: THC pos 0 - 50 ng/ml Cocaine neg 0 - 300 ng/ml Amphetamine neg 0 - 1000 ng/ml Buprenorphine (BUP) neg 0 - 10 ng/ml Secobarbital (Bar) neg 0 - 300 ng/ml Oxazepam (BZO) pos 0 - 300 ng/ml 4-thhbynkfly-7,2-tcpaplvn-1, 3-diphenylpyrrolidine (EDDP) neg 0 - 300 ng/ml Methamphetamine (MET) neg 0 - 1000 ng/ml Methylenedioxymethamphetamine (MDMA) neg 0 - 500 ng/ml Morphine (MOP 300/[id number]) pos 0 - 300 ng/ml Methadone (MTD) neg 0 - 300 ng/ml Phencyclidine (PCP) neg 0 - 25 ng/ml Nortriptyline (TCA) neg 0 - 1000 ng/ml Oxycodone pos 0 - 300 ng/ml x neg 0 - 300 ng/ml Reason For Referral No Information Medications Medication SIG (Take, Route, Frequency, Duration) Notes Start Date End Date Status DULoxetine HCl 60 MG 1 capsule Oral Once a day for 30 days total dose 90 mg Active Ondansetron 8 MG Oral Act stanley Gabapentin 100 MG Oral Ac tive Metoclopramide HCl 5 MG Oral Active LUBIPROSTONE 24 MCG CAPSULE *Reorder from [employer] for eRx and Interaction Alerts* Active Dicyclomine HCl 20 MG Oral Active ALPRAZolam 0.5 MG 1 tablet Oral three times a day for 14 days 08/12/2024 Active HYDROcodone-Acetamino phen 5-325 MG Oral Active DULoxetine HCl 30 MG 1 capsule Orally Once a day for 30 days total dose 90 mg Active buPROPion HCl ER (XL) 300 MG 1 tablet in the morning Oral Once a day for 30 days Active ALPRAZolam 0.5 MG 1 tablet Oral three times a day for 30 days As needed, continue to minimize use 08/24/2024 Active Potassium Citrate ER 15 mEq Oral *Pick strength-form from [employer] for eRX* Active Propranolol HCl 10 MG 1 tablet Orally 3 times a day for 30 days 08/24/2024 Active SUMAtriptan Succinate 6 MG/0.5ML Subcutaneous Active traZODone HCl 100 MG 1 tablet at bedtime Oral Once a day for 30 days Active Pantoprazole Sodium 40 MG Oral Active Social History Tobacco Use: Social History Observation Description Date Details (start date - stop date) Former Smoker 04/22/1992 - 05/23/2012 Sex Assigned At : Social History Observation Description Sex Assigned At Female Tobacco Control (Standard) Question Answer Notes When did you start smoking? 04/22/1992 When did you stop smoking? 05/23/2012 How long has it been since you [...] employed?: NoWho is your employer?: I have [employer] and have been ?retired? for 5 years.Marriage and SexualityWhat is your relationship status?: MarriedAre you sexually active?: NoDo you use protection during sex?: NoHow many children do you have?: 5Home and EnvironmentAre there any guns present in your home?: NoAdvance DirectiveDo you have an advance directive?: NoDo you have a medical power of outside sales executive?: No Social History Substance UseDo you or [...] employed?: NoWho is your employer?: I have [employer] and have been ?retired? for 5 years.Marriage and SexualityWhat is your relationship status?: MarriedAre you sexually active?: NoDo you use protection during sex?: NoHow many children do you have?: 5Home and EnvironmentAre there any guns present in your home?: NoAdvance DirectiveDo you have an advance directive?: NoDo you have a medical power of outside sales executive?: No Social History Substance UseDo you or [...] technical, or vocational programAre you currently employed?: [employer] is your employer?: I have [employer] and have been ?retired? for 5 years.Marriage and SexualityWhat is your relationship status?: MarriedAre you sexually active?: NoDo you use protection during sex?: NoHow many children do you have?: 5Home and EnvironmentAre there any guns present in your home?: NoAdvance DirectiveDo you have an advance directive?: NoDo you have a medical power of outside sales executive?: No Social History Substance UseDo you or [...] technical, or vocational programAre you currently employed?: [employer] is your employer?: I have [employer] and have been ?retired? for 5 years.Marriage and SexualityWhat is your relationship status?: MarriedAre you sexually active?: NoDo you use protection during sex?: NoHow many children do you have?: 5Home and EnvironmentAre there any guns present in your home?: NoAdvance DirectiveDo you have an advance directive?: NoDo you have a medical power of outside sales executive?: No Social History Substance UseDo you or [...] technical, or vocational programAre you currently employed?: [employer] is your employer?: I have [employer] and have been ?retired? for 5 years.Marriage and SexualityWhat is your relationship status?: MarriedAre you sexually active?: NoDo you use protection during sex?: NoHow many children do you have?: 5Home and EnvironmentAre there any guns present in your home?: NoAdvance DirectiveDo you have an advance directive?: NoDo you have a medical power of outside sales executive?: No Social History Substance UseDo you or have you ever smoked tobacco?: Former smokerHow much tobacco do you smoke?: NoneDo you or have you ever used any other forms of tobacco or nicotine?: YesDo you or have you ever used e-cigarettes or vape?: Current user of electronic cigarettesWhat was the date of your most recent tobacco screening?: 05/22/2024What is your level of alcohol consumption?: OccasionalHow [...] technical, or vocational programAre you currently employed?: No[employer] is your employer?: I have [employer] and have been ?retired? for 5 years.Marriage and SexualityWhat is your relationship status?: MarriedAre you sexually active?: NoDo you use protection during sex?: NoHow many children do you have?: 5Home and EnvironmentAre there any guns present in your home?: NoAdvance DirectiveDo you have an advance directive?: NoDo you have a medical power of outside sales executive?: No Social History Substance UseDo you or [...] technical, or vocational programAre you currently employed?: [employer] is your employer?: I have [employer] and have been ?retired? for 5 years.Marriage and SexualityWhat is your relationship status?: MarriedAre you sexually active?: NoDo you use protection during sex?: NoHow many children do you have?: 5Home and EnvironmentAre there any guns present in your home?: NoAdvance DirectiveDo you have an advance directive?: NoDo you have a medical power of outside sales executive?: No Problems Problem Type SNOMED Code ICD Code Onset Dates Problem Status W/U Status Risk Notes Problem Generalized anxiety disorder (54877801) Generalized anxiety disorder (F41.1) 4 Active confirmed Problem Insomnia disorder related to another mental disorder (49386712) 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 Active confirmed Problem 340478985 Essential tremor (G25.0) Active confirmed Problem 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 Problem RA (rheumatoid arthritis) (M06.9) 9 Active confirmed Vital Signs Heart Rate 88 /min 08/24/2024 Height-cm 167.64 cm 08/24/2024 Blood pressure diastolic 90 mm Hg 08/24/2024 Weight-kg 99.79 kg 08/24/2024 Height 66.00 in 08/24/2024 Blood pressure systolic 139 mm Hg 08/24/2024 Weight 220 lbs 08/24/2024 BMI 35.51 kg/m2 08/24/2024 Encounters Encounter Location Date Provider Diagnosis [facility] [place] [employer] [address] [address] 08/24/2024 Alix Laura Generalized anxiety disorder F41.1 ; Insomnia due to other mental disorder F51.05 ; 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 ; Essential tremor G25.0 ; Encounter for screening for cardiovascular disorders Z13.6 ; Dietary counseling and surveillance Z71.3 and Negative depression screening Z13.31 [facility] [place] [employer] [place] [id number] [facility] [address] [address] 09/11/2023 Chari Pappas Other usp (current) drug therapy Z79.899 ; Generalized anxiety disorder F41.1 and Insomnia due to other mental disorder F51.05 [facility] [place] [employer] [facility] [address] [facility] [address] [place] [address] 10/09/2023 Chari Pappas [facility] [place] [employer] [address] [facility] [address] [place] [address] 11/20/2023 Chari Pappas Generalized anxiety disorder F41.1 ; Insomnia due to other mental disorder F51.05 and Other usp (current) drug therapy Z79.899 [facility] [place] [employer] [place] [address] [place] [address] 11/21/2023 Jyoti New Generalized anxiety disorder F41.1 [facility] [address] [place] [address] 12/05/2023 Jyoti New Generalized anxiety disorder F41.1 [facility] [address] [place] [address] 01/30/2024 Chari Pappas Generalized anxiety disorder F41.1 ; Insomnia due to other mental disorder F51.05 and Other long term acute care registered nurse (current) drug therapy Z79.899 [facility] [address] [place] [address] 04/16/2024 Alixdonna Willstamiko Generalized anxiety disorder F41.1 ; Insomnia due to other mental disorder F51.05 ; 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 and Elevated BP without diagnosis of hypertension R03.0 [facility] [address] [place] [address] 05/04/[address] [facility] [address] [place] [address] 06/15/2024 Alix Sanchez Generalized anxiety disorder F41.1 ; Insomnia due to other mental disorder F51.05 and 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 [facility] [address] [place] [address] 08/29/2023 Provider Migration [facility], [facility] [address] [place] [address] 09/07/2023 Provider Migration [facility], [facility] [address] [place] [address] 09/08/2023 Provider Migration [facility], [facility] [address] [place] [address] 09/11/2023 Provider Migration [facility], [facility] [address] [place] [address] 09/26/[address] [facility] [address] [place] [address] 10/14/2023 Natty Grier [facility], [facility] [address] [place] [address] 10/15/2023 Chari [employer] [facility] [place] [employer], [facility] [address] [place] [address] 11/18/2023 [employer] [facility], [facility] [address] [place] [address] 11/19/2023 [employer] [facility] [place] [employer], [facility] [address] [facility] [address] [place] [address] 01/21/2024 Natty Grier Generalized anxiety disorder F41.1 [facility] [place] [employer], [facility] [address] [facility] [address] [place] [address] 05/04/2024 Mario Diaz [facility], [facility] [address] [facility] [address] [place] [address] 11/18/2023 [employer] [facility], [facility] [address] [facility] [address] [place] [address] 11/18/2023 [employer] [facility] [place] [employer], [facility] [address] [facility] [address] [place] [address] 11/18/2023 [employer] [facility] [place] [employer], [facility] [address] [facility] [address] [place] [address] 04/02/2024 [facility] [place] [employer] [facility] [address] [facility] [address] [place] [address] 08/12/2024 Alix Sanchez Assessments Encounter Date Diagnosis (ICD Code) Assessment Notes Treatment Notes Treatment Clinical Notes Section Notes 11/20/2023 Generalized anxiety disorder (ICD-10 - F41.1) cont decrease xanax, to 2mg daily this month, then plan for 1.5mg daily the next month if tolerating-le t office know if not; and call for [...] goal to minimize bzo, r/b/se, worsening sx, tolerating/depend ence, also higher risk respiratory depression when concurrent opiates, and likely further increased with her reports of aspiration/pneumo christiano, etc. Would recommend decrease in general, but also office policy is not to prescribe BZO with opiate or controlled substances with cannabis. Would generally not take over script, but since her provider can assume, with intent to taper. Will not continue indefinitely with opiate/cannabis and prefer to avoid regardless. She is willing to try taper. has been given [place] bzo risks handout 11/20/2023 Insomnia due to other mental disorder (ICD-10 - F51.05) r/t anxiety cont trazodone 100mg qhs practice good sleep hygiene 09/11/2023 Generalized anxiety disorder (ICD-10 - F41.1) 09/11/2023 Insomnia due to other mental disorder (ICD-10 - F51.05) 09/11/2023 Other usp (current) drug therapy (ICD-10 - Z79.899) 11/21/2023 [...] rheumatoid arthritis Spiritual Beliefs: a mishmash between Amish, Catholicism.I don't know. I just believe that [...] living situation. Depression: No major concerns, manageable Anger/Aggressio n: Denied Obsessions/Comp ulsions: If I start a project, I'm one [...] difficulty completing chores due to physical concerns. Interests/Skill s/Hobbies: Legos, paint, draw, family cookbook, essential oils [...] or specialist to manage pain. 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 Would recommend decrease in general, but [...] up 2 months, sooner if concerns arise 08/24/2024 Generalized anxiety disorder (ICD-10 - F41.1) cannabis gummies for chroinc pain, discussed benzo use and controlled substacne policy, has been tapering, currently on 1.5 mg total daily (down from 3 mg total daily). Plan to decrease dose next visit in 4 weeks 08/24/2024 Insomnia due to other mental disorder (ICD-10 - F51.05) 06/15/2024 Generalized anxiety disorder (ICD-10 - F41.1) Assessment [...] up 2 months, sooner if concerns arise 06/15/2024 Insomnia due to other mental disorder (ICD-10 [...] up 2 months, sooner if concerns arise 08/24/2024 EDS (Meredith-Danlos syndrome) (ICD-10 - Q79.60) 04/16/2024 EDS (Meredith-Danlos syndrome) (ICD-10 - Q79.60) [...] qhs practice good sleep hygiene 11/20/2023 Other usp (current) drug therapy (ICD-10 - Z79.899) UDS consistent with pain management/op iate, cannabis and alprazolam 01/30/2024 Other long term acute care registered nurse (current) drug therapy (ICD-10 - Z79.899) 04/16/2024 [...] up 2 months, sooner if concerns arise 08/24/2024 Essential tremor (ICD-10 - G25.0) 06/15/2024 EDS (Meredith-Danlos syndrome) (ICD-10 - Q79.60) Assessment [...] up 2 months, sooner if concerns arise 08/24/2024 Encounter for screening for cardiovascular disorders (ICD-10 - Z13.6) 08/24/2024 Dietary counseling and surveillance (ICD-10 - Z71.3) 08/24/2024 Negative depression screening (ICD-10 - Z13.31) 08/24/2024 Other Julian Smith, female patient with history of Meredith-Danlos syndrome, essential tremor, and IBS, presenting with ongoing anxiety and concerns about possible ADHD. Generalized Anxiety Disorder Assessment: Patient reports persistent anxiety without specific triggers, describing a constant nervous feeling jose juan to pre-speech jitters. She notes worsening anxiety due to multiple health problems. Recent panic attack occurred a couple of weeks ago, with previous episode several months prior. Current medications include duloxetine 60mg + 30mg, bupropion XR 300mg, and alprazolam 0.5mg TID. Propranolol 10mg BID is helping with tremors. Despite pharmacological interventions, patient still experiences significant anxiety symptoms. Plan: - Increase propranolol to 10mg TID for anxiety and tremor management - Continue alprazolam 0.5mg one tablet TID as needed - Advised to minimize use due to controlled substance policy - Plan to taper down alprazolam dose next visit - Continue duloxetine 60mg + 30mg daily - Continue bupropion XR 300mg daily - Follow up in 4 weeks to monitor anxiety with increased propranolol dose Possible Attention-Deficit /Hyperactivity Disorder (ADHD) Assessment: Patient inquires about ADHD testing due to extensive family history (brothers, mother, maternal uncle, children, ex-). Reports symptoms of hyper-focus, forgetfulness, and difficulty remembering tasks. Given the controlled anxiety and absence of depression, exploring ADHD is appropriate at this time. Symptoms appear to have been present since childhood, which is consistent with ADHD diagnosis criteria. Plan: - Schedule follow-up appointment to gather ADHD background information - Plan for ADHD testing (20-60 minutes) after background information is collected - Follow up after testing to review results and discuss potential diagnosis and treatment options Insomnia Assessment: Patient reports being a light sleeper with frequent nighttime awakenings. Currently using trazodone, which helps with sleep onset. Patient has not felt the need to increase the dose. Plan: - Continue current dose of trazodone for sleep Plan Of Treatment Pending Test Test Name Order Date UDT 08/24/2024 Next Appt Details Provider Name:Alix benton, 09/23/2024 08:45:00 AM, [address], [facility] [address], [place], [address], Insurance Providers Payer Name Payer Address Payer Phone Subscriber Number Group Number Insured Name Patient Relationship to Insured Coverage Start Date Coverage End Date Cigna [address] [facility] [place] [address] [id number] JULIAN SMITH Self - patient is the insured Medical (General) History Medical History History ICD Code Insomnia disorder related to another men linda disorder Past Psychiatric History: Anxiety Disord er,PTSD essential tremor RA (rheumatoid arthritis) M06.9 Anemia, unspecified D64.9 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 Chronic pain syndrome G89.4 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 syndrome with both const ipation and diarrhea K58.2 Surgical History Surgery Date(Month/Year) Sinus surgery Tonsilectomy/adenoids 04/22/1980 Hysterectomy (61675) 03/01/2023 oopherectomy 12/2023
--- OUTSIDE RECORDS SUMMARY | 2024-08-26 16:24 | XMS_ITS | Clinical Summary ---
Author Organization [facility] [employer] Address [address] [place] [address] Care Team Providers Care Aviation Survival Technician Name Role Phone Jonathan Hartman RN Unavailable [phone] Feliciano Dash MD Primary Care Provider [phone] Source Comments [facility],non-owned Affiliates and Associated Physician Practices is amultiple site organization consisting of ambulatory clinics and hospital sitesin [place], [place], [place] and [place]. This disclosure is being madepursuant to the Care Everywhere program and may not contain all information available regarding this patient. Last updated 18.[facility] Allergies Active Allergy Reactions Criticality Noted Date Comments Ibuprofen Other Medium 11/18/2015 Stomach ulcers Medications * Be aware that medications may not be up to date on this document. Always verify current medications with the patient. DULoxetine (CYMBALTA) 60 MG capsule Take 60 mg by mouth once daily Takes with 30 mg (total daily dose: 90 mg) Active hyoscyamine, disintergrating , (NULEV) 0.125 MG tablet Take 1 Tab by mouth every 3 hours as needed (abd pain) 30 Tab 0 6 Active linaclotide (LINZESS) 145 MCG capsule Take 1 Cap by mouth daily before breakfast Take on an empty stomach at least 30 minutes prior to first meal of the day. 30 Cap 3 6 Active ondansetron, disintegrating, (ZOFRAN ODT) 4 MG tabletIndicatio ns:Migraine without aura and without status migrainosus, not intractable Dissolve 4 mg under the tongue every 12 hours as needed 6 Active SUMAtriptan Succinate 6 MG/0.5MLIndicat ions:Migraine without aura and without status migrainosus, not intractable 1 injection at onset of migraine, may repeat 1 hour later if needed. Max 2 injections per 24 hours 0 6 Active pantoprazole EC (PROTONIX) 40 MG tabletIndicatio ns:Generalized abdominal pain TAKE 1 TABLET BY MOUTH TWICE DAILY BEFORE BREAKFAST AND DINNER 60 Tab 3 6 Active azaTHIOprine (IMURAN) 50 MG tablet Take by mouth once daily Active OtherIndication s:Rhemuatoid arthiritis and Meredith-Danlos syndrome CDB-THC (1:1 ratio) 25 mg patch transdermal route every 24 hours. Obtains from [facility] in [place]. 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 Obtains from [facility] in [place]. 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 traZODone (DESYREL) 100 MG tablet Take 100 mg by mouth at bedtime Active topiramate (TOPAMAX) 100 MG tabletIndicatio ns:Migraine Take 200 mg by mouth at bedtime Reasons: Migraine Headache Active clonazePAM (KLONOPIN) 0.5 MG tablet Take 0.5 mg by mouth once daily as needed for Anxiety Active DULoxetine (CYMBALTA) 30 MG capsule Take 30 mg by mouth once daily Takes with 60 mg (total daily dose: 90 mg) Active HYDROcodone-mary jo taminophen (NORCO) 5-325 MG tablet Take 1 tablet by mouth every 8 hours as needed 15 tablet 7 Active dextromethorpha n-guaiFENesin ER 12hr (MUCINEX DM) 30-600 MG tablet Take 1 tablet by mouth 2 times daily 10 tablet 7 Active guaiFENesin (ROBITUSSIN) 100 MG/5ML solution Take 10 mL by mouth every 6 hours as needed for Cough 1 bottles 7 Active saccharomyces (FLORASTOR) 250 MG capsule Take 1 capsule by mouth once daily 20 capsule 7 Active raNITIdine (ZANTAC) 150 MG tablet TAKE 1 TABLET BY MOUTH TWICE DAILY 60 tablet 7 Active CARAFATE 1 GM/10ML suspension TAKE 10 ML BY MOUTH FOUR TIMES DAILY BEFORE MEALS AND NIGHTLY 420 mL 8 Active CARAFATE 1 GM/10ML suspensionIndic ations:Gastroes ophageal reflux disease with esophagitis TAKE 10 ML BY MOUTH FOUR TIMES DAILY BEFORE MEALS AND NIGHTLY 420 mL 8 Active raNITIdine (ZANTAC) 150 MG tabletIndicatio ns:Gastroesopha geal reflux disease with esophagitis TAKE 1 TABLET BY MOUTH TWICE DAILY 60 tablet 8 Active Active Problems Problem Noted Date Diagnosed Date Sepsis 01/29/2017 Pneumonia of right lung due to infectious organi sm 01/29/2017 RA (rheumatoid arthritis) 11/18/2015 Diverticulitis of colon 11/18/2015 Acute cystitis without hematuria 07/14/2015 Migraine headache 11/16/2013 Immunizations Immunization Administration Dates Next Due INFLUENZA VACCINE, QUADR. 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 Gender Identity Female 01/29/2017 1:09 PM CDT [...] 50+ (1 of 2 - PCV) 1993 ZOSTER VACCINE (1 of 2) 1993 LIPID TESTING 08/01/2020 08/02/2015 DEPRESSION SCREENING 04/22/2024 INFLUENZA VACCINE (Season Ended) 2024 01/30/2017 COLON MONITORING 12/14/2025 12/15/2015, , 12/15/2015, Additional history exists COLONOSCOPY - COLON CA SCREENING 12/14/2025 12/15/2015, 12/15/2015, 12/15/2015, Additional history exists Colorectal Cancer Screening 12/14/2025 HIB VACCINE Aged Out No longer eligi ble based on patient's age to complete this topic HPV VACCINE Aged Out No longer eligi ble based on patient's age to complete this topic MENINGOCOCCAL (Group B) VACCINE SHARED DECISION-MAKING Aged Out No longer eligible based on patient's age to complete this topic MENINGOCOCCAL GROUPS A/C/Y/W VACCINE Aged Out No longer eligible based on patient's age to complete this topic Goals Goal Patient Goal Type Associated Problems Recent Progress Patient-Stated? Author Yearly PCP visit Lifestyle No Rukhsana Lazo MA Procedures Procedure Name Priority Date/Time Associated Diagnosis Comments ENDOSCOPY, COLON, SCREENING Routine 12/15/2015 12:23 PM CDT LIPID PROFILE Routine 08/02/2015 10:02 AM CDT Pancreatitis, unspecified pancreatitis type from Last 3 Months or Most Recently Relevant to Health Maintenance Results * ENDOSCOPY, COLON, SCREENING (12/15/2015 12:23 PM CDT) Report Endoscopy POC _ Patient Name: Julian Walton Procedure Date: 12/15/2015 12:23 PM Date of : 1975 Admit Type: Outpatient Age: 40 Gender: Female Attending MD: Armando Corona , _ Procedure: Colonoscopy Indications: Lower abdominal pain Providers: Armando Corona (Doctor), Myranda Keys, Enma Medina, Associate Professor Of Communication Patient Profile: 40F pmh 40F pmh depression, [...] are negative Procedure Code(s): --- Professional --- 48305, Colonoscopy, flexible; with biopsy, single or multiple --- Technical --- 66439, Colonoscopy, flexible; with biopsy, single or multiple Diagnosis Code(s): --- Professional --- R10.30, Lower abdominal pain, unspecified --- Technical --- R10.30, Lower abdominal pain, unspecified CPT copyright 2015 [employer]. All rights reserved. The codes documented in this report are preliminary and upon esol teacher review may be revised to meet current compliance requirements. Armando Corona, 12/15/2015 12:47:51 PM This report has been signed electronically. Number of Addenda: 0 Note Initiated On: 12/15/2015 12:23 PM [facility] ENDOSCOPY 12/15/2015 12:2 3 PM CDT Narrative Transcriptions Armando Corona MD - 12/15/2015 12:53 PM CDT Neg colon s/p random bx us Armando Corona MD GI PROCEDURE ORDERABLES Edited R esult - Final [facility] ENDOSCOPY * (ABNORMAL) LIPID PROFILE (08/02/2015 10:02 AM CDT) Cholesterol 184 <200 mg/dL 08/02/2015 10:49 AM CDT [facility] Triglycerides 156(H) <150 mg/dL 08/02/2015 10:49 AM CDT [facility] HDL Cholesterol 43 >40 mg/dL 08/02/2015 10:49 AM CDT [facility] LDL Calculated 110 <130 mg/dL 08/02/2015 10:49 AM CDT [facility] VLDL Calculated 31(H) <=30 mg/dL 08/02/2015 10:49 AM CDT [facility] Chol HDL Ratio 4.3 <4.5 08/02/2015 10:49 AM CDT [facility] LDL/HDL Ratio 2.6 <5.0 08/02/2015 10:49 AM CDT [facility] Blood BLOOD SPECIMEN / Unknown Lab Venipuncture / Unknown 08/02/2015 10:02 AM CDT 08/02/2015 10:13 AM CDT us Chucho Hinton MD LAB - CHEMISTRY ORDERABLES Fi nal Result [facility] [address] [place] [address] from Last 3 Months or Most Recently Relevant to Health Maintenance Insurance [employer]TH [facility] SELF PAY NO INSURANCE Member Subscriber Plan / Payer (Ef fective for All Dates) Name:Julian Sauer Member ID:Not on file Relation to Subscriber:Not on file Name:JULIAN SAUER Subscriber ID:Not on file (Home) Address: [address] [place] [address] Payer ID:Not on file Group ID:Not on file Type:Self Pay Address: [place], [place] [employer] [facility] [id number] [place] [address] [facility] SELF PAY NO INSURANCE Member Subscriber Plan / Payer (Ef fective for All Dates) Name:Julian Sauer Member ID:Not on file Relation to Subscriber:Not on file Name:JULIAN SAUER Subscriber ID:Not on file Address: [address] [place] [address] Payer ID:Not on file Group ID:Not on file Type:Self Pay Address: [place], [place] [facility] SELF PAY NO INSURANCE Member Subscriber Plan / Payer (Ef fective for All Dates) Name:Julian Sauer Member ID:Not on file Relation to Subscriber:Not on file Name:JULIAN SAUER Subscriber ID:Not on file Address: [address] [place] [address] Payer ID:Not on file Group ID:Not on file Type:Self Pay Address: [place], [place] Advance Directives * Full Code (Latest Code Status on File) Date Activated Date Inactivated Comments 01/29/2017 7:53 PM 02/02/2017 1:02 PM * Full Code Date Activated Date Inactivated Comments 08/02/2015 1:57 AM 08/05/2015 3:00 PM * Full Code Date Activated Date Inactivated Comments 07/13/2015 10:36 PM 07/16/2015 3:55 PM Care Teams Aviation Survival Technician Relationship Specialty Start Date End Date Feliciano Dash MD [address] [facility] [address] [place] [address] PCP - General 07/14/21 Jonathan Hartman RN Technical Testing Engineer 07/14/15
--- OUTSIDE RECORDS SUMMARY | 2024-08-26 16:24 | XMS_ITS | Patient Health Record ---
Author Organization [facility] Address [address] [place] [address] Care Team Providers Care Superintendent Laundry Name Role Phone NADINE RUSH Unavailable [phone] Allergies No Known Allergies Reason For Referral Reason EVAL AND TREAT Diagnosis 1 Chronic pain syndrom e (G89.4) Referral Organization [facility] Referring Provider First Name TERESA Referring Provider Last Name KARL Referring Provider Speciality Physician Child Care Director Referred Provider Specialty Pain Medicin e Referral Priority Routine Referral Appointment Date 02/25/2024 Social History Tobacco Use: Social History Observation Description Date Details (start date - stop date) Former Smoker NA - NA Tobacco Control (Standard) Question Answer Notes Tobacco use: Former smoker Problems Problem Type SNOMED Code ICD Code Onset Dates Problem Status W/U Status Risk Notes Problem [id number] Chronic pain syndrome (G89.4) Active confirmed Vital Signs Height 66 in 02/25/2024 Patient Reported Normal Blood Pressure Patient Reported Normal Temperature Weight 200 lbs 02/25/2024 Patient Reported Normal Blood Pressure Patient Reported Normal Temperature BMI 32.28 kg/m2 02/25/2024 Patient Reported Normal Blood Pressure Patient Reported Normal Temperature Encounters Encounter Location Date Provider Diagnosis [facility] [address] [place] [address] 02/25/2024 NADINE RUSH Chronic pain syndrom e [...] Insured Coverage Start Date Coverage End Date [facility] [address] [place] [address] [id number] Madalyn Smith Self - patient is the insured Medical (General) History Medical History History ICD Code Meredith Camilla 05/23/1990 Obesity
--- OUTSIDE RECORDS SUMMARY | 2024-08-26 16:24 | XMS_ITS | Clinical Summary ---
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 Gender Identity Not on file Sexual Orientation Not on file Last Filed Vital Signs Vital Sign Reading Time Taken Comments Blood Pressure 108/79 03/01/2021 3:00 PM SPECIAL EDUCATION INSTRUCTOR Pulse 79 03/01/2021 3:00 PM SPECIAL EDUCATION INSTRUCTOR Temperature 36.2 C (97.2 F) 03/01/2021 12:34 PM SPECIAL EDUCATION INSTRUCTOR Respiratory Rate 16 03/01/2021 3:00 PM SPECIAL EDUCATION INSTRUCTOR Oxygen Saturation 98% 03/01/2021 3:00 PM SPECIAL EDUCATION INSTRUCTOR Inhaled Oxygen Concentration - - Weight 86.1 kg (189 lb 13.1 oz) 021 12:34 PM SPECIAL EDUCATION INSTRUCTOR Height 167.6 cm (5' 6 ) 03/01/2021 12:3 4 PM SPECIAL EDUCATION INSTRUCTOR Body Mass Index 30.64 03/01/2021 12:34 PM SPECIAL EDUCATION INSTRUCTOR Plan of Treatment Health Maintenance Due Date Last Done Comments Cervical Cancer Screening Pa p Smear (Age 30 to 64) Every 3 Years 1974 Colorectal Cancer Screening Colonoscopy (10 Years) 1974 Annual Physical 1977 Hepatitis C 1992 DTaP, Tdap and Td Vaccines ( 1 - Tdap) 1993 Hepatitis B Vaccines (1 of 3 - 19+ 3-dose series) 1993 Cervical Cancer Screening Pa p with HPV Testing (Age 30 to 64) Every 5 Years 2004 Cervical Cancer Screening wi th HPV 2004 Mammogram Screening 2014 COVID-19 Vaccine ( - 2023-2 5 season) 2023 02/02/2021, 07/21/2020, 06/30/2020 Pneumococcal Vaccine: 50+ Years (1 of 1 - PCV) 2024 Zoster Vaccines (1 of 2) 2024 Meningococcal B Vaccine Aged Out No l onger eligible based on patient's age to complete this topic Meningococcal Vaccine Aged Out No ector dulce eligible based on patient's age to complete this topic RSV Immunizations Under 20 Months Aged Out No longer eligible b ased on patient's age to complete this topic Insurance [facility] Care Teams Fitter Type Bar And Segment Relationship Specialty Start Date End Date Bhupinder Tobias MD [address] [place] [address] [address] PCP - General INTERNAL MEDICINE 03/01/21
--- OUTSIDE RECORDS SUMMARY | 2024-08-26 16:24 | XMS_ITS | Continuity of Care Document ---
Author Organization [facility] Address [address] [place] [address] Phone Care Team Providers Care Consulting Services Associate Name Role Phone Amadeo Arias MD Unavailable [...] Copied on Encounter OFFICE/OUTPAT IENT VISIT EST [facility], [address] [address], [place], [address], tel:[phone] [facility] [place] Patellofemoral instability, rightOther specified sprain of right wrist, initial encounter 0 6 Hugo Childs. [address], [place], [place], [id number] . tel: [phone] [facility], [address], [place], [address], [place] tel:[phone] [facility] Acute bilateral low back pain without sciaticaLeft hip painArthralgia of right hipPatellofemo ral instability, leftPatellofem oral instability, right 6 Hugo Childs. [address], [place], [place], [id number] . tel: [phone] OFFICE CONSULTATION [facility], [address], [place], [address], tel:[phone] [facility] [place] Patellofemoral instability, rightPatellofe moral instability, leftArthralgia of right hipLeft hip painAcute bilateral low back pain without sciatica 201 6 Hugo Childs. [address], [place], [place], [id number] . tel: [phone] Referring Provider: Michelle De La Torre[address], [place], [address] . tel:[phone] Family History Family Member Type Diagnosis Age At Onset Sister Problem (finding) Alive and well Payers Payer name Insurance type Covered green party ID Authoriza tion(s) [facility] Choice/Choice Plus E2 [id number] Social History Type Description Quantity Date Captured [...]
--- OUTSIDE RECORDS SUMMARY | 2024-08-26 16:24 | XMS_ITS ---
Author Organization [facility] Address [address] [place] [address] Care Team Providers Care Child Care Lead Teacher Name Role Phone Jose Zhang DO Primary Care Provider UnavailAlix Sher Unavailable [phone] Allergies No Known Allergies REASON FOR VISIT NOT SEEN DO NOT BILL HAD TO R/S Medications Medication SIG (Take, Route, Frequency, Duration) Notes Start Date End Date Status traZODone HCl 100 MG 1 tablet at bedtime Oral Once a day for 30 days Active buPROPion HCl ER (XL) 300 MG 1 tablet in the morning Oral Once a day for 30 days Active Propranolol HCl 10 MG 1 tablet Orally twice a day for 30 days Active DULoxetine HCl 30 MG 1 capsule Orally Once a day for 30 days total dose 90 mg Active ALPRAZolam 0.5 MG 1 tablet Oral three times a day for 14 days 08/12/2024 Active DULoxetine HCl 60 MG 1 capsule Oral Once a day for 30 days total dose 90 mg Active Pantoprazole Sodium 40 MG Oral Active Potassium Citrate ER 15 mEq Oral *Pick strength-form from [employer] for eRX* Active LUBIPROSTONE 24 MCG CAPSULE *Reorder from [employer] for eRx and Interaction Alerts* Active SUMAtriptan Succinate 6 MG/0.5ML Subcutaneous Active Gabapentin 100 MG Oral Ac tive Metoclopramide HCl 5 MG Oral Active Ondansetron 8 MG Oral Act stanley Dicyclomine HCl 20 MG Oral Active HYDROcodone-Acetamino phen 5-325 MG Oral Active Social History Tobacco Use: Social History Observation Description Date Details (start date - stop date) Former Smoker NA - 06/02/2012 Sex Assigned At : Social History Observation Description Sex Assigned At Female Tobacco Control (Standard) Question Answer Notes When did you start smoking? 1990 When did you stop smoking? 06/02/2012 How long has it been since you [...] technical, or vocational programAre you currently employed?: NoWYuyuto is your employer?: I have [employer] and have been ?retired? for 5 years.Marriage and SexualityWhat is your relationship status?: MarriedAre you sexually active?: NoDo you use protection during sex?: NoHow many children do you have?: 5Home and EnvironmentAre there any guns present in your home?: NoAdvance DirectiveDo you have an advance directive?: NoDo you have a medical power of assistant prosecuting attorney?: No Vital Signs Blood pressure systolic 132 mm Hg 08/20/19 25 Blood pressure diastolic 84 mm Hg 025 Heart Rate 100 /min 08/19/2024 Height 66.00 in 08/19/2024 Weight 229 lbs 08/19/2024 BMI 36.96 kg/m2 08/19/2024 Height-cm 167.64 cm 08/19/2024 Weight-kg 103.87 kg 08/19/2024 Encounters Encounter Location Date Provider Diagnosis [facility] [address] [email or web address] [address] [place] [address] 08/19/2024 Alixdonna Sanchez Encounter for screening for depression Z13.31 and Encounter for screening for cardiovascular disorders Z13.6 Assessments Encounter Date Diagnosis (ICD Code) Assessment Notes Treatment Notes Treatment Clinical Notes Section Notes 08/19/2024 Encounter for screening for depression (ICD-10 - Z13.31) 08/19/2024 Encounter for screening for cardiovascular disorders (ICD-10 - Z13.6) Plan Of Treatment Next Appt Details Provider Name:Alixdonna Pollock chetan, 09/23/2024 08:45:00 AM, [facility], [facility] [[email or web address]] [address], [place], [address], Progress Notes * JULIAN SAUERDOB:1975 ( 49 yo F)Acc No.[id number]:08/19/2024 Patient: JULIAN FREEMAN Provider: Joseph Sanchez :1975 A ge:49 Y S ex:Female Date:08/19/2024 Address:[address] [place], [place] [id number] Pcp:Jose Zhang DO Subjective: * Chief Complaints: * 1 . NOT SEEN DO NOT BILL HAD TO R/S. * HPI: [place]-Suicide Severity Rating Scale: Suicide Risk (CSRS-screener) i n the past one month Have you wished you were or wished you could go to sleep and not wake up? N o i n the past one month Have you actually had any thoughts of killing yourself? N o H ave you ever done anything, started to do anything, or prepared to do anything to end your life? N o D epression Screening: FERNANDA-7 (2018 Edition) F eeling nervous, anxious, or on edge N early every day N ot being able to stop or control worrying?More than half the days W orrying too much about different things M ore than hafl the days T rouble relaxing M ore than half the days B eing so restless that it is hard to sit still M ore than half the days B ecoming easily annoyed or irritable N ot at all F eeling afraid as if something awful might happen N ot at all I f you checked any problems, how difficult have they made it for you to do your work, take care of things at home, or get along with other people? E xtremely difficult I nterpretation of Total ( 10 to 14) Moderate D epression screening: PHQ-9 L ittle interest or pleasure in doing things?Not at all F eeling down, depressed, or hopeless N ot at all T rouble falling or staying asleep, or sleeping too much S everal days F eeling tired or having little energy S everal days P oor appetite or overeating S everal F eeling bad about yourself or that you are a failure, or have let yourself or your family down N ot at all T rouble concentrating on things, such as reading the newspaper or watching television N early every day M oving or speaking so slowly that other people could have noticed; or the opposite, being so fidgety or restless that you have been moving around a lot more than usual N ot at all T houghts that you would be better off or of hurting yourself in some way N ot at all T otal Score 6 I nterpretation M ild Depression Intervention D epression Screening Findings P ositve F ollow-Up for Depression [facility] health treatment assessment, Patient follow-up to return when and if necessary S uicide Risk Assessment Performed 0 08/19/2024 A dditional Evaluation for Depression P sychiatric interview and evaluation N william of the standardized tool used for adult depression screening: P atient Health Questionnaire (PHQ-9) H istory of Presenting Problem: Depression screening positive BP normal. * ROS: P erformance Met: N ormal blood pressure reading documented, follow-up not required ( G8783). 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 * Social History: T obacco Use: T obacco Control (Standard) W hen did you start smoking? 1 991 W hen did you stop smoking? 0 06/02/2012 H ow long has it been since you last smoked??Greater than 10 years T obacco use: F ormer smoker M igrated Social History: M igrated Social History: Alcohol Intake: Occasional 09/11/2023,Tobacco Years: Former smoker 09/11/2023. D rug/Alcohol: D rugs H ave you used drugs other than those for medical reasons in the past 12 months? N o AUDIT-C (Standard) D id you have a drink containing alcohol in the past year? Y es H ow often did you have six or more drinks on one occasion in the past year? N ever (0 point) H ow many drinks did you have on a typical day when you were drinking in the past year? 1 or 2 drinks (0 point) H ow often did you have a drink containing alcohol in the past year? 2 to 4 times a month (2 points) I nterpretation N egative M iscellaneous: S afety issues A re there any firearms in the house? 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 * Medications: T aking Metoclopramide HCl 5 MG Tablet Oral , Taking Ondansetron 8 MG Tablet Disintegrating Oral , Taking Gabapentin 100 MG Capsule Oral , Taking Dicyclomine HCl 20 MG Tablet Oral , Taking HYDROcodone-Acetaminophen 5-325 MG Tablet Oral , Taking LUBIPROSTONE 24 MCG CAPSULE , Notes to Pharmacist: *Reorder from [employer] for eRx and Interaction Alerts*, Taking SUMAtriptan Succinate 6 MG/0.5ML Solution Auto- injector Subcutaneous , Taking Pantoprazole Sodium 40 MG Tablet Delayed Release Oral , Taking Potassium Citrate ER 15 mEq Tablet Extended Release Oral , Notes to Pharmacist: *Pick strength-form from [employer] for eRX*, Taking DULoxetine HCl 60 MG Capsule Delayed Release Particles 1 capsule Oral Once a day total dose 90 mg, Taking traZODone HCl 100 MG Tablet 1 tablet at bedtime Oral Once a day , Taking buPROPion HCl ER (XL) 300 MG Tablet Extended Release 24 Hour 1 tablet in the morning Oral Once a day , Taking Propranolol HCl 10 MG Tablet 1 tablet Orally twice a day , Taking DULoxetine HCl 30 MG Capsule Delayed Release Particles 1 capsule Orally Once a day total dose 90 mg, Taking ALPRAZolam 0.5 MG Tablet 1 tablet Oral three times a day , Medication List reviewed and reconciled with the patient * Allergies: N .K.D.A. Objective: * Vitals: B P:132/84mm Hg, HR:100/min, Wt:229lbs, Wt-k.87 kg, Ht: 66.00 in, Ht-cm: 167.64 cm, BMI:36.96Index, Body Surface Area: 2.2. Assessment: * Assessment: 1. E ncounter for screening for depression - Z13.31 2 . E ncounter for screening for cardiovascular disorders - Z13.6 Plan: * Treatment: * Procedure Codes: 1 036F TOBACCO NON-USER, G8783 NORMAL BP READING DOC F/U NOT RQR, 75140 BEHAV ASSMT W/SCORE & DOCD/STAND INSTRUMENT, G8431 CLIN DEPRESSION SCREEN DOC, G8752 MOST RECENT SYSTOLIC BP < 140MM HG, G8754 MOST RECENT DIASTOLIC BP < 90MM HG * Billing Information: * Visit Code: * Procedure Codes: 1036F TOBACCO NON-USER. G8783 NORMAL BP READING DOC F/U NOT RQR. 67134 BEHAV ASSMT W/SCORE & DOCD/STAND INSTRUMENT. G8431 CLIN DEPRESSION SCREEN DOC. G8752 MOST RECENT SYSTOLIC BP < 140MM HG. G8754 MOST RECENT DIASTOLIC BP < 90MM HG. * Electronic signature of Dakota Sanchez on 08/26/2024 at 04:24 PM CDT Sign off status: Pending * Provider: Joseph Sanchez Date: 0 08/19/2024 Generated for Tree Thurman/Dayna on: 0 08/26/2024 04:24 PM CDT History and Physical Notes * HPI (History of Present Illness) Category Sub-Category Detail Notes Category Not es Depression screening PHQ-9 Little inte rest or pleasure in doing things: Not at all Feeling down, depressed, or hopeless: No t at all Trouble falling or staying asleep, or sl eeping too much: Several days Feeling tired or having little energy: S everal days Poor appetite or overeating: Several day s Feeling bad about yourself o r that you are a failure, or have let yourself or your family down: Not at all Trouble concentrating on thi ngs, such as reading the newspaper or watching television: Nearly every day Moving or speaking so slowly that other people could have noticed; or the opposite, being so fidgety or restless that you have been moving around a lot more than usual: Not at all Thoughts that you would be b elian off or of hurting yourself in some way: Not at all Total Score: 6 Interpretation: Mild Depression Intervention Depression Screening Findings: P ositve Follow-Up for Depression: [facility] treatment assessment, Patient follow-up to return when and if necessary Suicide Risk Assessment Performed: 08/19 Additional Evaluation for Depression: Ps ychiatric interview and evaluation Name of the standardized too l used for adult depression screening:: Patient Health Questionnaire (PHQ-9) Depression Screening FERNANDA-7 (2018 Edition) Feelin g nervous, anxious, or on edge: Nearly every day Not being able to stop or control worryi ng: More than half the days Worrying too much about different things : More than hafl the days Trouble relaxing: More than half the day s Being so restless that it is hard to sit still: More than half the days Becoming easily annoyed or irritable: No t at all Feeling afraid as if something awful darien ht happen: Not at all If you checked any problems, how difficult have they made it for you to do your work, take care of things at home, or get along with other people?: Extremely difficult Interpretation of Total: (10 to 14) Mode rate Young-Suicide Severity Rating Scale Suicide Risk (CSRS-screener) in [...]
--- OUTSIDE RECORDS SUMMARY | 2024-08-26 16:24 | XMS_ITS ---
Author Organization [facility] Address [address] [place] [address] Care Team Providers Care Insurance Sales Assistant Name Role Phone NADINE WHITE Unavailable [phone] Allergies No Known Allergies Reason For Referral Reason EVAL AND TREAT Diagnosis 1 Chronic pain syndrom e (G89.4) Referral Organization [facility] Referring Provider First Name TERESA Referring Provider [facility] Referring Provider Speciality Physician Course Developer Referred Provider Specialty Pain Medicin e Referral [...] Problem Status W/U Status Risk Notes Problem [id number] Chronic pain syndrome (G89.4) Active confirmed Vital Signs Height 66 in 02/25/2024 Weight 200 lbs 02/25/2024 BMI 32.28 kg/m2 02/25/2024 Patient Reported Normal Bloo d PressurePatient Reported Normal Temperature Encounters Encounter Location Date Provider Diagnosis [facility] [address] [place] [address] 02/25/2024 NADINE WHITE Chronic pain syndrom e [...] * CAMACHO MadalynDOB:1975 ( 48 yo F)Acc No.[id number]:02/25/2024 Patient: Madalyn FREEMAN Provider: Anthony WHITE, :1975 A ge:48 Y S ex:Female Date:02/25/2024 Phone: Address:[address] [place], [place] [id number] Subjective: * Chief Complaints: * G eneral [...] Procedure Codes: Rhett Fletcher / CC Processing [id number] Office Visit, Est Pt., Level 3 Virtual Visit, Modifiers: 95 * Follow Up: P CP, 2W * Billing Information: * Visit Code: * Procedure Codes: MPFEE Kittyhant / CC Processing Fee. 50230 Office Visit, Est Pt., Level 3 Virtual Visit. Modifiers: 95 * Sign off status: Completed true * Provider: Anthony WHITE DO Date: 04/26/2023 Generated for Tree regalado/Caryl/Dayna on: 0 08/26/2024 05:23 PM EDT History and Physical Notes * HPI (History [...]
--- OUTSIDE RECORDS SUMMARY | 2024-08-26 16:24 | XMS_ITS | Clinical Summary ---
Author Organization [facility] Address [address], [address] [address] Phone Care Team Providers Care Cafeteria Director Name Role Phone Marbin Fair DO Unavailable Amadeo Hernandez MD Unavailable Isaiah Quiros MD Primary Care Provider [phone] Medications cholestyramine (QUESTRAN) 4 GM Pack Take 1 Packet by mouth 2 times daily (with meals). 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 Gender Identity Not on file Sexual Orientation Not on file Plan of Treatment Health Maintenance Due Date Last Done Comments Hepatitis C Virus (HCV) Screening 1975 TdaP Immunization 1975 Hepatitis B Immunization (1 of 3 - 19+ 3-dose series) 1993 Pap Smear 1995 Cervical Cancer Screening (CCS) 2004 HPV/Cotest 2004 Discussion re Starting/Frequency of Mammograms 2014 Influenza Immunization (#1) 12/22/202301/20, 03/10/2015 SARS-COV-2 Immunization ( season) 2023 02/02/2021, 07/21/2020, 06/30/2020 Cologuard 2024 Immunochemical Fecal Occult Blood 2024 Pneumococcal Immunization (5 0+ years) (1 of 1 - PCV) 2024 Zoster Immunization (1 of 2) 2024 Colonoscopy 09/22/2030 09/22/2020, 05/02/2018, 03/09/2015 Colorectal [...] Health Maintenance Results * COLONOSCOPY (09/22/2020) Marbin aFir DO PROCEDURE/MINOR SURGICAL ORDERA BLES Final Result from Last 3 Months or Most Recently Relevant to Health Maintenance Insurance [facility] Care Teams Cafeteria Director Relationship Specialty Start Date End Date Isaiah Quiros MD [address], [address] [place] [address] PCP - General Internal Medicine 05/08/18 Marbin Fair DO Gastroenterology 12/03/16 Amadeo Hernandez MD [address] [place] [address] 12/03/16
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
[2024-08-26 16:27] VITALS: BP 128/102; PULSE 90; RESP 16; TEMP 36.4; O2SAT 100
--- OUTSIDE RECORDS SUMMARY | 2024-08-26 17:34 | XMS_ITS | Clinical Summary ---
Author Organization [facility] Address [address] [place] [address] Phone Care Team Providers Care Youth Officer Name Role Phone Isaiah Quiros MD Primary Care Provider [phone] Allergies No known active allergies Medications topiramate [...] tablet Take 300 mg by mouth daily financial accountant. 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
--- OUTSIDE RECORDS SUMMARY | 2024-08-26 17:34 | XMS_ITS | Clinical Summary ---
Author Organization [facility] Address [address], [address] [address] Phone Care Team Providers Care Calender Operator Helper Name Role Phone Marbin Fair DO Unavailable [phone] Amadeo Hernandez MD Unavailable Isaiah Quiros MD Primary Care Provider [phone] Medications cholestyramine (QUESTRAN) 4 GM Pack Take 1 Packet by mouth 2 times daily (with meals). 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
--- OUTSIDE RECORDS SUMMARY | 2024-08-26 17:34 | XMS_ITS | Clinical Summary ---
Author Organization [facility] [employer] Address [address] [place] [address] Care Team Providers Care Photo Mask Processor Name Role Phone Jonathan Hartman RN Unavailable [phone] Feliciano Dash MD Primary Care Provider [phone] Source Comments [facility],non-owned Affiliates and Associated Physician Practices is amultiple site organization consisting of ambulatory clinics and hospital sitesin [place], [place], [place] and [place]. This disclosure is being madepursuant to the Care Everywhere program and may not contain all information available regarding this patient. Last updated 18.[facility] Allergies Active Allergy Reactions Criticality Noted [...] transdermal route every 24 hours. Obtains from [facility] in [place]. 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 Obtains from [facility] in [place]. 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 All rights reserved. The codes documented in this report are preliminary and upon clinical documentation spec review may be revised to meet current compliance requirements. Armando Corona, 12/15/2015 12:47:51 PM This report has been signed electronically. Number of Addenda: 0 Note Initiated On: 12/15/2015 12:23 PM [facility] 12/15/2015 12:2 3 PM CDT Narrative Transcriptions Armando Corona MD - 12/15/2015 12:53 PM CDT Neg colon s/p random bx us Armando Corona MD GI PROCEDURE ORDERABLES Edited R esult - Final [facility] * (ABNORMAL) LIPID PROFILE (08/02/2015 10:02 AM CDT) Cholesterol 184 <200 mg/dL 08/02/2015 10:49 AM CDT [facility] Triglycerides 156(H) <150 mg/dL 08/02/2015 10:49 AM CDT [facility] HDL Cholesterol 43 >40 mg/dL 08/02/2015 10:49 AM CDT [facility] LDL Calculated 110 <130 mg/dL 08/02/2015 10:49 AM CDT [facility] VLDL Calculated 31(H) <=30 mg/dL 08/02/2015 10:49 AM CDT [facility] Chol HDL Ratio 4.3 <4.5 08/02/2015 10:49 AM CDT [facility] LDL/HDL Ratio 2.6 <5.0 08/02/2015 10:49 AM CDT [facility] Blood BLOOD SPECIMEN / Unknown Lab Venipuncture / Unknown 08/02/2015 10:02 AM CDT 08/02/2015 10:13 AM CDT us Chucho Hinton MD LAB - CHEMISTRY ORDERABLES Fi nal Result [facility] [address] [place] [address] from Last 3 Months or Most Recently Relevant to Health Maintenance Insurance [facility] SELF PAY NO INSURANCE Member Subscriber Plan / Payer (Ef fective for All Dates) Name:Julian Sauer Member ID:Not on file Relation to Subscriber:Not on file Name:JULIAN SAUER Subscriber ID:Not on file (Home) Address: [address] [place] [address] Payer ID:Not on file Group ID:Not on file Type:Self Pay Address: [place], [place] [facility] [id number] [place] [address] [facility] SELF PAY NO INSURANCE Member Subscriber Plan / Payer (Ef fective for All Dates) Name:Julian Sauer Member ID:Not on file Relation to Subscriber:Not on file Name:JULIAN SAUER Subscriber ID:Not on file Address: [address] [place] [address] Payer ID:Not on file Group ID:Not on file Type:Self Pay Address: [place], [place] [facility] SELF PAY NO INSURANCE Member Subscriber Plan / Payer (Ef fective for All Dates) Name:Julian Sauer Member ID:Not on file Relation to Subscriber:Not on file Name:JULIAN SAUER Subscriber ID:Not on file Address: [address] [place] [address] Payer ID:Not on file Group ID:Not on file Type:Self Pay Address: [place], [place] Advance Directives * Full Code (Latest Code Status on File) Date Activated Date Inactivated Comments 01/29/2017 7:53 PM 02/02/2017 1:02 PM * Full Code Date Activated Date Inactivated Comments 08/02/2015 1:57 AM 08/05/2015 3:00 PM * Full Code Date Activated Date Inactivated Comments 07/13/2015 10:36 PM 07/16/2015 3:55 PM Care Teams Photo Mask Processor Relationship Specialty Start Date End Date Feliciano Dash MD [address] [facility] [address] [place] [address] PCP - General 07/14/21 Jonathan Hartman RN Sketch Artist 07/14/15
--- OUTSIDE RECORDS SUMMARY | 2024-08-26 17:34 | XMS_ITS | Clinical Summary ---
Author Organization [place] [id number] Address [address] [place] [address] Phone Care Team Providers Care Pediatrician/Medical Doctor Name Role Phone Kumar CARRILLO MD, John J. Unavailable [phone] Bhupinder Tobias MD Primary Care Provider [phone] Jorge Aguiar MD Unavailable [phone] Khoa Arias MD Unavailable Allergies No known active allergies Medications SUMAtriptan [...] (08/30/2021): Added automatically from request for surgery [id number] Abdominal pain 03/31/2021 Assessment & Plan (06/28/2021 10:08 AM VACCINE CUSTOMER REPRESENTATIVE): Recently dx with mild pancreatitis. Needs lipase/amylase rechecked. Still has some upper abd pain. Advised pt to f/u with GI also. Assessment & Plan (06/19/2021 8:52 AM VACCINE CUSTOMER REPRESENTATIVE): Had abd pain early this month, check amyl/lip and ua. Pain has resolved. Assessment & Plan (05/05/2021 10:13 PM VACCINE CUSTOMER REPRESENTATIVE): Having abd pain, bloating, constipation. On meds for IBS and also using suppositories to have BM. Incidental findings of mesenteric fat stranding (adenitis or panniculitis) on abd CT. Awaiting further eval by Dr. Arias. Assessment & Plan (03/31/2021 8:44 AM VACCINE CUSTOMER REPRESENTATIVE): Elevated lipase. Imuran stopped. Pt advised to [...] 04/23/2019 Assessment & Plan (03/24/2020 7:29 AM VACCINE CUSTOMER REPRESENTATIVE): Normal serum immunoglobulins. Assessment & Plan (01/21/2020 [...] immunoglobulins. Assessment & Plan (04/23/2019 1:46 PM VACCINE CUSTOMER REPRESENTATIVE): Check serum immunoglobulins. Osteoporosis without current pathological fractu re 09/18/2018 Assessment & Plan (08/10/2021 8:09 AM CDT): bds checked by pcp in past, is taking ca and vit d and pcp checked vit D and PTH per pt was wnl. Her pcp started her on alendronate 70mg po qweek. Taking ca + vit d 1200mg qd. Assessment & Plan (06/15/2021 10:46 AM VACCINE CUSTOMER REPRESENTATIVE): bds checked by pcp in past, is taking ca and vit d and pcp checked vit D and PTH per pt was wnl. Her pcp started her on alendronate 70mg po qweek. Taking ca + vit d 1200mg qd. Assessment & Plan (06/09/2021 8:30 AM VACCINE CUSTOMER REPRESENTATIVE): bds checked by pcp in past, is taking ca and vit d and pcp checked vit D and PTH per pt was wnl. Her pcp started her on alendronate 70mg po qweek. Taking ca + vit d 1200mg qd. Assessment & Plan (05/04/2021 8:19 AM VACCINE CUSTOMER REPRESENTATIVE): bds checked by pcp in past, is [...] qd. Assessment & Plan (06/03/2020 7:38 AM VACCINE CUSTOMER REPRESENTATIVE): bds checked by pcp in past, is taking ca and vit d and pcp checked vit D and PTH per pt was wnl. Her pcp started her on alendronate 70mg po qweek. Taking ca + vit d 1200mg qd. Assessment & Plan (03/25/2020 8:34 AM VACCINE CUSTOMER REPRESENTATIVE): bds checked by pcp in past, is taking ca and vit d and pcp checked vit D and PTH per pt was wnl. Her pcp started her on alendronate 70mg po qweek. Taking ca + vit d 1200mg qd. Assessment & Plan (03/24/2020 7:29 AM VACCINE CUSTOMER REPRESENTATIVE): bds checked by pcp in past, is [...] qd. Assessment & Plan (04/20/2019 4:56 PM VACCINE CUSTOMER REPRESENTATIVE): bds checked by pcp in past, is [...] pcp. Assessment & Plan (06/03/2020 7:37 AM VACCINE CUSTOMER REPRESENTATIVE): Was advised in past to get chest CT to r/o aortic aneurysm, to discuss with pcp. Assessment & Plan (03/25/2020 8:33 AM VACCINE CUSTOMER REPRESENTATIVE): Was advised in past to get chest CT to r/o aortic aneurysm, to discuss with pcp. Assessment & Plan (03/24/2020 7:29 AM VACCINE CUSTOMER REPRESENTATIVE): Was advised in past to get chest [...] pcp. Assessment & Plan (04/20/2019 4:57 PM VACCINE CUSTOMER REPRESENTATIVE): Advised to get chest CT to r/o aortic aneurysm, to discuss with pcp. Assessment & Plan (10/31/2018 7:38 AM CDT): Advised to get chest CT to r/o aortic aneurysm, to discuss with pcp. Encounter for long-term (current) use of medicat ions 01/31/2017 Assessment & Plan (05/28/2022 8:07 AM VACCINE CUSTOMER REPRESENTATIVE): Quant gold neg 12/2019 Hep B and [...] showed osteoporosis [facility] 08/2019---[facility] labs reveal positive anti-MOLD CARRIER antibody which is likely a false positive due to negative ASHLEY. Her father had psoriasis, pt changed from ra to PsA on 03/25/2020. Assessment & Plan (02/26/2022 8:16 AM VACCINE CUSTOMER REPRESENTATIVE): Quant gold neg 12/2019 Hep B and [...] showed osteoporosis [facility] 08/2019---[facility] labs reveal positive anti-MOLD CARRIER antibody which is likely a false [...] showed osteoporosis [facility] 08/2019---[facility] labs reveal positive anti-MOLD CARRIER antibody which is likely a false [...] showed osteoporosis [facility] 08/2019---[facility] labs reveal positive anti-MOLD CARRIER antibody which is likely a false [...] showed osteoporosis [facility] 08/2019---[facility] labs reveal positive anti-MOLD CARRIER antibody which is likely a false [...] showed osteoporosis [facility] 08/2019---[facility] labs reveal positive anti-MOLD CARRIER antibody which is likely a false positive due to negative ASHLEY. Her father had psoriasis, pt changed from ra to PsA on 03/25/2020. Assessment & Plan (06/28/2021 8:44 AM VACCINE CUSTOMER REPRESENTATIVE): Quant gold neg 12/2019 Hep B and [...] showed osteoporosis [facility] 08/2019---[facility] labs reveal positive anti-MOLD CARRIER antibody which is likely a false positive due to negative ASHLEY. Her father had psoriasis, pt changed from ra to PsA on 03/25/2020. Assessment & Plan (06/15/2021 10:44 AM VACCINE CUSTOMER REPRESENTATIVE): Quant gold neg 12/2019 Hep B and [...] showed osteoporosis [facility] 08/2019---[facility] labs reveal positive anti-MOLD CARRIER antibody which is likely a false positive due to negative ASHLEY. Her father had psoriasis, pt changed from ra to PsA on 03/25/2020. Assessment & Plan (06/09/2021 10:15 AM VACCINE CUSTOMER REPRESENTATIVE): Quant gold neg 12/2019 Hep B and [...] showed osteoporosis [facility] 08/2019---[facility] labs reveal positive anti-MOLD CARRIER antibody which is likely a false positive due to negative ASHLEY. Her father had psoriasis, pt changed from ra to PsA on 03/25/2020. Assessment & Plan (06/09/2021 8:29 AM VACCINE CUSTOMER REPRESENTATIVE): Quant gold neg 12/2019 Hep B and [...] showed osteoporosis [facility] 08/2019---[facility] labs reveal positive anti-MOLD CARRIER antibody which is likely a false positive due to negative ASHLEY. Her father had psoriasis, pt changed from ra to PsA on 03/25/2020. Assessment & Plan (05/04/2021 8:19 AM VACCINE CUSTOMER REPRESENTATIVE): Quant gold neg 12/2019 Hep B and [...] showed osteoporosis [facility] 08/2019---[facility] labs reveal positive anti-MOLD CARRIER antibody which is likely a false positive due to negative ASHLEY. Her father had psoriasis, pt changed from ra to PsA on 03/25/2020. Assessment & Plan (03/31/2021 9:20 AM VACCINE CUSTOMER REPRESENTATIVE): Quant gold neg 12/2019 Hep B and [...] showed osteoporosis [facility] 08/2019---[facility] labs reveal positive anti-MOLD CARRIER antibody which is likely a false [...] showed osteoporosis [facility] 08/2019---[facility] labs reveal positive anti-MOLD CARRIER antibody which is likely a false [...] showed osteoporosis [facility] 08/2019---[facility] labs reveal positive anti-MOLD CARRIER antibody which is likely a false [...] showed osteoporosis [facility] 08/2019---[facility] labs reveal positive anti-MOLD CARRIER antibody which is likely a false [...] showed osteoporosis [facility] 08/2019---[facility] labs reveal positive anti-MOLD CARRIER antibody which is likely a false positive due to negative ASHLEY. Her father had psoriasis, pt changed from ra to PsA on 03/25/2020. Assessment & Plan (06/03/2020 2:56 PM VACCINE CUSTOMER REPRESENTATIVE): Quant gold neg 12/2019 Hep B and [...] showed osteoporosis [facility] 08/2019---[facility] labs reveal positive anti-MOLD CARRIER antibody which is likely a false positive due to negative ASHLEY. Her father had psoriasis, pt changed from ra to PsA on 03/25/2020. Assessment & Plan (03/25/2020 3:03 PM VACCINE CUSTOMER REPRESENTATIVE): Quant gold neg 12/2019 HLA B27 negative [...] showed osteoporosis [facility] 08/2019---[facility] labs reveal positive anti-MOLD CARRIER antibody which is likely a false positive due to negative ASHLEY. Her father had psoriasis, pt changed from ra to PsA on 03/25/2020. Assessment & Plan (03/24/2020 7:28 AM VACCINE CUSTOMER REPRESENTATIVE): Quant gold neg 12/2019 HLA B27 negative [...] showed osteoporosis [facility] 08/2019---[facility] labs reveal positive anti-MOLD CARRIER antibody which is likely a false [...] showed osteoporosis [facility] 08/2019---[facility] labs reveal positive anti-MOLD CARRIER antibody which is likely a false [...] showed osteoporosis [facility] 08/2019---[facility] labs reveal positive anti-MOLD CARRIER antibody which is likely a false [...] showed osteoporosis [facility] 08/2019---[facility] labs reveal positive anti-MOLD CARRIER antibody which is likely a false [...] showed osteoporosis [facility] 08/2019---[facility] labs reveal positive anti-MOLD CARRIER antibody which is likely a false [...] showed osteoporosis [facility] 08/2019---[facility] labs reveal positive anti-MOLD CARRIER antibody which is likely a false [...] osteoporosis Assessment & Plan (04/20/2019 4:59 PM VACCINE CUSTOMER REPRESENTATIVE): Quant gold neg 10/2018. TPMT nl 17 [...] 01/31/2017 Assessment & Plan (05/28/2022 8:05 AM VACCINE CUSTOMER REPRESENTATIVE): Images from the original note were not included. Had orencia infusion 05/02/2022. Continue orencia monotherapy. Off arava due to lipase elevation. Seeing gi at [facility] now. [place] and egd utd and nl in past year per pt. Had a nl pancreatic US recently with gi. Past serologies: [facility] panel 08/2019---labs reveal positive anti-MOLD CARRIER antibody which is likely a false positive due to negative ASHLEY. RF neg but has a possible family hx of psoriatic arthritis (father) so if she develops psoriasis diagnosis will change to psoriatic arthritis. Rt hand US 09/2019 showed: F/u 1 month. Assessment & Plan (02/26/2022 12:12 PM VACCINE CUSTOMER REPRESENTATIVE): Images from the original note were not included. High cdai. Her orencia is scheduled tomorrow. Continue orencia monotherapy. Off arava due to lipase elevation. Seeing gi at [facility] now. [place] and egd utd and nl in past year per pt. Had a nl pancreatic US recently with gi. She could be flaring up since her orencia is due tomorrow, overall she still feels that it is helping her joints. Past serologies: [facility] panel 08/2019---labs reveal positive anti-MOLD CARRIER antibody which is likely a false [...] no complications or infections. Seeing gi at [facility] now for her elevated lipase. [place] and egd utd and nl in past year per pt. If labs stable will restart low dose arava 10mg po every day. To stay off orencia until recovered from rt knee surgery. Past serologies: [facility] panel 08/2019---labs reveal positive anti-MOLD CARRIER antibody which is likely a false [...] orencia is scheduled tomorrow. Seeing gi at [facility] now. [place] and egd utd and nl in past year per pt. Due to burden of dz will give her a short course of oral prednisone. Discussed risks and se of systemic steroids. Past serologies: [facility] panel 08/2019---labs reveal positive anti-MOLD CARRIER antibody which is likely a false [...] orencia is scheduled tomorrow. Seeing gi at [facility] now. [place] and egd utd and nl in past year per pt. Due to burden of dz will give her a short course of oral prednisone. Discussed risks and se of systemic steroids. Past serologies: [facility] panel 08/2019---labs reveal positive anti-MOLD CARRIER antibody which is likely a false [...] gi dr arias for her pancreatitis . [place] and egd utd and nl in past year per pt. Seen with dr woodruff today. Past serologies: [facility] panel 08/2019---labs reveal positive anti-MOLD CARRIER antibody which is likely a false positive due to negative ASHLEY. RF neg but has a possible family hx of psoriatic arthritis (father) so if she develops psoriasis diagnosis will change to psoriatic arthritis. Rt hand US 09/2019 showed: F/u 1 month. Assessment & Plan (06/28/2021 10:22 AM VACCINE CUSTOMER REPRESENTATIVE): Images from the original note were not [...] Past serologies: [facility] panel 08/2019---labs reveal positive anti-MOLD CARRIER antibody which is likely a false positive due to negative ASHLEY. RF neg but has a possible family hx of psoriatic arthritis (father) so if she develops psoriasis diagnosis will change to psoriatic arthritis. Rt hand US 09/2019 showed: F/u 1 month. Assessment & Plan (06/15/2021 10:46 AM VACCINE CUSTOMER REPRESENTATIVE): Images from the original note were not [...] Past serologies: [facility] panel 08/2019---labs reveal positive anti-MOLD CARRIER antibody which is likely a false positive due to negative ASHLEY. RF neg but has a possible family hx of psoriatic arthritis (father) so if she develops psoriasis diagnosis will change to psoriatic arthritis. Rt hand US 09/2019 showed: F/u 1 month. Assessment & Plan (06/09/2021 10:16 AM VACCINE CUSTOMER REPRESENTATIVE): Images from the original note were not [...] Past serologies: [facility] panel 08/2019---labs reveal positive anti-MOLD CARRIER antibody which is likely a false positive due to negative ASHLEY. RF neg but has a possible family hx of psoriatic arthritis (father) so if she develops psoriasis diagnosis will change to psoriatic arthritis. Rt hand US 09/2019 showed: F/u 1 month. Assessment & Plan (06/09/2021 8:29 AM VACCINE CUSTOMER REPRESENTATIVE): Images from the original note were not [...] Past serologies: [facility] panel 08/2019---labs reveal positive anti-MOLD CARRIER antibody which is likely a false positive due to negative ASHLEY. RF neg but has a possible family hx of psoriatic arthritis (father) so if she develops psoriasis diagnosis will change to psoriatic arthritis. Rt hand US 09/2019 showed: F/u 1 month. Assessment & Plan (05/05/2021 10:11 PM VACCINE CUSTOMER REPRESENTATIVE): Images from the original note were not [...] Past serologies: [facility] panel 08/2019---labs reveal positive anti-MOLD CARRIER antibody which is likely a false positive due to negative ASHLEY. RF neg but has a possible family hx of psoriatic arthritis (father) so if she develops psoriasis diagnosis will change to psoriatic arthritis. Rt hand US 09/2019 showed: F/u 1 month. Assessment & Plan (03/31/2021 9:24 AM VACCINE CUSTOMER REPRESENTATIVE): Images from the original note were not [...] Past serologies: [facility] panel 08/2019---labs reveal positive anti-MOLD CARRIER antibody which is likely a false [...] Past serologies: [facility] panel 08/2019---labs reveal positive anti-MOLD CARRIER antibody which is likely a false [...] Past serologies: [facility] panel 08/2019---labs reveal positive anti-MOLD CARRIER antibody which is likely a false [...] Past serologies: [facility] panel 08/2019---labs reveal positive anti-MOLD CARRIER antibody which is likely a false positive due to negative ASHLEY. RF neg but has a possible family hx of psoriatic arthritis (father) so if she develops psoriasis diagnosis will change to psoriatic arthritis. Rt [facility] 09/2019 showed: Assessment & Plan (07/18/2020 8:24 AM CDT): Images from the original note were not included. High cdai. On imuran to 100mg bid and Stelara. Discussed potential se and risks of stelara tx. To see her gi for her diarrhea, she is due for colonoscopy. Continue imuran. To get covid 19 vaccine when available. Past serologies: [facility] panel 08/2019---labs reveal positive anti-MOLD CARRIER antibody which is likely a false positive due to negative ASHLEY. RF neg but has a possible family hx of psoriatic arthritis (father) so if she develops psoriasis diagnosis will change to psoriatic arthritis. Rt [facility] 09/2019 showed: Assessment & Plan (06/03/2020 5:27 PM VACCINE CUSTOMER REPRESENTATIVE): Images from the original note were not [...] Past serologies: [facility] panel 08/2019---labs reveal positive anti-MOLD CARRIER antibody which is likely a false positive due to negative ASHLEY. RF neg but has a possible family hx of psoriatic arthritis (father) so if she develops psoriasis diagnosis will change to psoriatic arthritis. Rt [facility] 09/2019 showed: Assessment & Plan (03/25/2020 3:01 PM VACCINE CUSTOMER REPRESENTATIVE): Images from the original note were not [...] Past serologies: [facility] panel 08/2019---labs reveal positive anti-MOLD CARRIER antibody which is likely a false positive due to negative ASHLEY. RF neg but has a possible family hx of psoriatic arthritis (father) so if she develops psoriasis diagnosis will change to psoriatic arthritis. Rt [facility] [place] 09/2019 showed: Assessment & Plan (03/24/2020 7:29 AM VACCINE CUSTOMER REPRESENTATIVE): Images from the original note were not included. Bernardino zapien Wants to go back to sq orencia, gave pt 1 mo of samples and will start approval. Can't come in for iv orencia, her dad is on hospice. Increase imuran to 100mg bid, check cbc/cmp in 2 weeks and f/u in 1month. Past serologies: [facility] panel 08/2019---labs reveal positive anti-MOLD CARRIER antibody which is likely a false positive due to negative ASHLEY. RF neg but has a possible family hx of psoriatic arthritis (father) so if she develops psoriasis diagnosis will change to psoriatic arthritis. Rt [facility] 09/2019 showed: Assessment & Plan (02/19/2020 11:34 AM CDT): Bernardino zapien Wants to go back to sq orencia, gave pt 1 mo of samples and will start approval. Can't come in for iv orencia, her dad is on hospice. Increase imuran to 100mg bid, check cbc/cmp in 2 weeks and f/u in 1month. Past serologies: [facility] panel 08/2019---labs reveal positive anti-MOLD CARRIER antibody which is likely a false positive due to negative ASHLEY. RF neg but has a possible family hx of psoriatic arthritis (father) so if she develops psoriasis diagnosis will change to psoriatic arthritis. Rt [facility] 09/2019 showed: Assessment & Plan (01/22/2020 [...] Past serologies: [facility] panel 08/2019---labs reveal positive anti-MOLD CARRIER antibody which is likely a false [...] every day. [facility] panel 08/2019---labs reveal positive anti-MOLD CARRIER antibody which is likely a false positive due to negative ASHLEY. Otherwise labs look good. No evidence of a new autoimmune connective tissue disease. Cont orencia sq and imuran 100mg po qhs. [place] better on iv orencia, will change from [...] since resolved. [facility] panel 08/2019---labs reveal positive anti-MOLD CARRIER antibody which is likely a false [...] of orencia. [facility] panel 08/2019---labs reveal positive anti-MOLD CARRIER antibody which is likely a false [...] of orencia. [facility] panel 08/2019---labs reveal positive anti-MOLD CARRIER antibody which is likely a false [...] wnl. Assessment & Plan (04/23/2019 1:46 PM VACCINE CUSTOMER REPRESENTATIVE): High cdai. On orencia IV but has [...] citrate. Assessment & Plan (06/03/2020 2:56 PM VACCINE CUSTOMER REPRESENTATIVE): Multiple kidney stones for over 10 yrs, [...] Hemorrhoid Meredith-Danlos syndrome Peptic ulceration Autoimmune disease Rheumatoid Arthritis Menstrual problem irregular and heavy Family History Medical History Relation Name Comments Arthritis Father Keegan Fajardoariana Cancer Father Keegan Fajardoariana Obesity Father Keegan Balbir Arthritis Father's Brother Cash Balbir Arthritis Father's Sister 1 AquilesEvangelina Smith Diabetes Father's Sister 2 Michelle Gary Arthritis Maternal Grandfather Rene Noriega Cancer Maternal Grandfather López Foster Arthritis Maternal Grandmother Ondina Foster Cancer [...] Paternal Grandmother Valerie jennings Arthritis Paternal Grandmother Valerie Mcgregor Memory [...] on file Legal Sex Female 9:24 PM VACCINE CUSTOMER REPRESENTATIVE Gender Identity Female 08/14/2022 11:32 AM [...] 1993 Regular Well Visit/Exam 18-64 12/25/2019 12/24/2018 Zoster Vaccine (1 of 2) 2024 Influenza Vaccine (Season Ended) 2024 01/22/2020, 02/05/2018, 01/30/2017, Additional history exists DTaP/Tdap/Td Vaccine [...] HEPATITIS C AB Routine 06/29/2015 2:43 PM VACCINE CUSTOMER REPRESENTATIVE from Last 3 Months or Most Recently Relevant to Health Maintenance Results * ThinPrep Pap with HPV (12/24/2018 3:41 PM CDT) 12/24/2018 3:41 PM CDT 12/25/2018 8:54 AM CDT Narrative [facility] - 12/26/2018 2:53 PM CDT [facility] Department of Pathology [address] [place] [id number] Final Report with Addendum Patient Name: JULIAN SAUER Address: [address] [place] [address] Gender: F : 1975 (Age: 43) Service: Laboratory Location: Lab [facility] #: [id number] Patient Type: Ref Lab Taken: 12/24/2018 Received: 12/25/2018 Accessioned:: 12/26/2018 Reported: 12/26/2018 Physician(s): Curtis Oseguera M.D. [facility] Diagnosis: Source of Specimen: SCREENING IMAGED PAP [...] Electronically Reviewed and Signed Out By WALDEMAR CarreraASC) 12/26/2018 12:46:00 Specimen(s) Received: A: SCREENING IMAGED [...] determined by the Surgical Pathology Department at [facility] as part of an ongoing water quality analyst program and in compliance with federally mandated [...] characteristics determined by the Surgical Pathology Department [facility]. It has not been cleared or approved by the U. S. Food and Drug Administration. Curtis Oseguera MD LAB CYTOLOGY ORDERABLES Final Result Performing Organization Address [facility]/ZIP Co de Phone Number [address] [phone] * Serum Hepatitis C ab (06/29/2015 2:43 PM VACCINE CUSTOMER REPRESENTATIVE) HCV ab Non-Reacti ve Non-Reacti ve HISTORICAL RESULTS Serum 06/29/2015 2:43 PM VACCINE CUSTOMER REPRESENTATIVE Miriam VALLE LAB BLOOD ORDERAB LES Final Result Performing Organization Address City/[facility] Co de Phone Number HISTORICAL RESULTS from Last 3 Months or Most Recently Relevant to Health Maintenance Insurance [facility] [employer] Care Teams Pediatrician/Medical Doctor Relationship Specialty Start Date End Date Bhupinder Tobias MD [address] [address] PCP - General Internal Medicine 06/03/20 Cash Woodruff III, MD [address] [facility] [address] [place] [address] Rheumatology 04/12/17 Jorge Aguiar MD [address] [address] Consulting Physician Urology 11/10/20 Khoa Arias MD [address] [facility] [address] [place] [address] Referring Physician Gastroenterology 03/20/21
--- OUTSIDE RECORDS SUMMARY | 2024-08-26 17:34 | XMS_ITS | Referral Summary ---
Author Organization [id number] Address [address] [place] [address] Phone Care Team Providers Care Sleeve Setter Name Role Phone Kumar CARRILLO MD, John J. Unavailable [phone] Bhupinder Tobias MD Primary Care Provider [phone] Jorge Aguiar MD Unavailable [phone] Khao Arias MD Unavailable [phone] Allergies No known active allergies Medications SUMAtriptan [...] (08/30/2021): Added automatically from request for surgery [id number] Abdominal pain 03/31/2021 Assessment & Plan (06/28/2021 10:08 AM CARE ASSOCIATE): Recently dx with mild pancreatitis. Needs lipase/amylase rechecked. Still has some upper abd pain. Advised pt to f/u with GI also. Assessment & Plan (06/19/2021 8:52 AM CARE ASSOCIATE): Had abd pain early this month, check amyl/lip and ua. Pain has resolved. Assessment & Plan (05/05/2021 10:13 PM CARE ASSOCIATE): Having abd pain, bloating, constipation. On meds for IBS and also using suppositories to have BM. Incidental findings of mesenteric fat stranding (adenitis or panniculitis) on abd CT. Awaiting further eval by Dr. Arias. Assessment & Plan (03/31/2021 8:44 AM CARE ASSOCIATE): Elevated lipase. Imuran stopped. Pt advised to [...] 04/23/2019 Assessment & Plan (03/24/2020 7:29 AM CARE ASSOCIATE): Normal serum immunoglobulins. Assessment & Plan (01/21/2020 [...] immunoglobulins. Assessment & Plan (04/23/2019 1:46 PM CARE ASSOCIATE): Check serum immunoglobulins. Osteoporosis without current pathological fractu re 09/18/2018 Assessment & Plan (08/10/2021 8:09 AM CDT): bds checked by pcp in past, is taking ca and vit d and pcp checked vit D and PTH per pt was wnl. Her pcp started her on alendronate 70mg po qweek. Taking ca + vit d 1200mg qd. Assessment & Plan (06/15/2021 10:46 AM CARE ASSOCIATE): bds checked by pcp in past, is taking ca and vit d and pcp checked vit D and PTH per pt was wnl. Her pcp started her on alendronate 70mg po qweek. Taking ca + vit d 1200mg qd. Assessment & Plan (06/09/2021 8:30 AM CARE ASSOCIATE): bds checked by pcp in past, is taking ca and vit d and pcp checked vit D and PTH per pt was wnl. Her pcp started her on alendronate 70mg po qweek. Taking ca + vit d 1200mg qd. Assessment & Plan (05/04/2021 8:19 AM CARE ASSOCIATE): bds checked by pcp in past, is [...] qd. Assessment & Plan (06/03/2020 7:38 AM CARE ASSOCIATE): bds checked by pcp in past, is taking ca and vit d and pcp checked vit D and PTH per pt was wnl. Her pcp started her on alendronate 70mg po qweek. Taking ca + vit d 1200mg qd. Assessment & Plan (03/25/2020 8:34 AM CARE ASSOCIATE): bds checked by pcp in past, is taking ca and vit d and pcp checked vit D and PTH per pt was wnl. Her pcp started her on alendronate 70mg po qweek. Taking ca + vit d 1200mg qd. Assessment & Plan (03/24/2020 7:29 AM CARE ASSOCIATE): bds checked by pcp in past, is [...] qd. Assessment & Plan (04/20/2019 4:56 PM CARE ASSOCIATE): bds checked by pcp in past, is [...] pcp. Assessment & Plan (06/03/2020 7:37 AM CARE ASSOCIATE): Was advised in past to get chest CT to r/o aortic aneurysm, to discuss with pcp. Assessment & Plan (03/25/2020 8:33 AM CARE ASSOCIATE): Was advised in past to get chest CT to r/o aortic aneurysm, to discuss with pcp. Assessment & Plan (03/24/2020 7:29 AM CARE ASSOCIATE): Was advised in past to get chest [...] pcp. Assessment & Plan (04/20/2019 4:57 PM CARE ASSOCIATE): Advised to get chest CT to r/o aortic aneurysm, to discuss with pcp. Assessment & Plan (10/31/2018 7:38 AM CDT): Advised to get chest CT to r/o aortic aneurysm, to discuss with pcp. Encounter for long-term (current) use of medicat ions 01/31/2017 Assessment & Plan (05/28/2022 8:07 AM CARE ASSOCIATE): Quant gold neg 12/2019 Hep B and [...] showed osteoporosis [facility] 08/2019---[facility] labs reveal positive anti-PATTERN MARKING SUPERVISOR antibody which is likely a false positive due to negative ASHLEY. Her father had psoriasis, pt changed from ra to PsA on 03/25/2020. Assessment & Plan (02/26/2022 8:16 AM CARE ASSOCIATE): Quant gold neg 12/2019 Hep B and [...] showed osteoporosis [facility] 08/2019---[facility] labs reveal positive anti-PATTERN MARKING SUPERVISOR antibody which is likely a false [...] showed osteoporosis [facility] 08/2019---[facility] labs reveal positive anti-PATTERN MARKING SUPERVISOR antibody which is likely a false [...] showed osteoporosis [facility] 08/2019---[facility] labs reveal positive anti-PATTERN MARKING SUPERVISOR antibody which is likely a false [...] showed osteoporosis [facility] 08/2019---[facility] labs reveal positive anti-PATTERN MARKING SUPERVISOR antibody which is likely a false [...] showed osteoporosis [facility] 08/2019---[facility] labs reveal positive anti-PATTERN MARKING SUPERVISOR antibody which is likely a false positive due to negative ASHLEY. Her father had psoriasis, pt changed from ra to PsA on 03/25/2020. Assessment & Plan (06/28/2021 8:44 AM CARE ASSOCIATE): Quant gold neg 12/2019 Hep B and [...] showed osteoporosis [facility] 08/2019---[facility] labs reveal positive anti-PATTERN MARKING SUPERVISOR antibody which is likely a false positive due to negative ASHLEY. Her father had psoriasis, pt changed from ra to PsA on 03/25/2020. Assessment & Plan (06/15/2021 10:44 AM CARE ASSOCIATE): Quant gold neg 12/2019 Hep B and [...] showed osteoporosis [facility] 08/2019---[facility] labs reveal positive anti-PATTERN MARKING SUPERVISOR antibody which is likely a false positive due to negative ASHLEY. Her father had psoriasis, pt changed from ra to PsA on 03/25/2020. Assessment & Plan (06/09/2021 10:15 AM CARE ASSOCIATE): Quant gold neg 12/2019 Hep B and [...] showed osteoporosis [facility] 08/2019---[facility] labs reveal positive anti-PATTERN MARKING SUPERVISOR antibody which is likely a false positive due to negative ASHLEY. Her father had psoriasis, pt changed from ra to PsA on 03/25/2020. Assessment & Plan (06/09/2021 8:29 AM CARE ASSOCIATE): Quant gold neg 12/2019 Hep B and [...] showed osteoporosis [facility] 08/2019---[facility] labs reveal positive anti-PATTERN MARKING SUPERVISOR antibody which is likely a false positive due to negative ASHLEY. Her father had psoriasis, pt changed from ra to PsA on 03/25/2020. Assessment & Plan (05/04/2021 8:19 AM CARE ASSOCIATE): Quant gold neg 12/2019 Hep B and [...] showed osteoporosis [facility] 08/2019---[facility] labs reveal positive anti-PATTERN MARKING SUPERVISOR antibody which is likely a false positive due to negative ASHLEY. Her father had psoriasis, pt changed from ra to PsA on 03/25/2020. Assessment & Plan (03/31/2021 9:20 AM CARE ASSOCIATE): Quant gold neg 12/2019 Hep B and [...] showed osteoporosis [facility] 08/2019---[facility] labs reveal positive anti-PATTERN MARKING SUPERVISOR antibody which is likely a false [...] showed osteoporosis [facility] 08/2019---[facility] labs reveal positive anti-PATTERN MARKING SUPERVISOR antibody which is likely a false [...] showed osteoporosis [facility] 08/2019---[facility] labs reveal positive anti-PATTERN MARKING SUPERVISOR antibody which is likely a false [...] showed osteoporosis [facility] 08/2019---[facility] labs reveal positive anti-PATTERN MARKING SUPERVISOR antibody which is likely a false [...] showed osteoporosis [facility] 08/2019---[facility] labs reveal positive anti-PATTERN MARKING SUPERVISOR antibody which is likely a false positive due to negative ASHLEY. Her father had psoriasis, pt changed from ra to PsA on 03/25/2020. Assessment & Plan (06/03/2020 2:56 PM CARE ASSOCIATE): Quant gold neg 12/2019 Hep B and [...] showed osteoporosis [facility] 08/2019---[facility] labs reveal positive anti-PATTERN MARKING SUPERVISOR antibody which is likely a false positive due to negative ASHLEY. Her father had psoriasis, pt changed from ra to PsA on 03/25/2020. Assessment & Plan (03/25/2020 3:03 PM CARE ASSOCIATE): Quant gold neg 12/2019 HLA B27 negative [...] showed osteoporosis [facility] 08/2019---[facility] labs reveal positive anti-PATTERN MARKING SUPERVISOR antibody which is likely a false positive due to negative ASHLEY. Her father had psoriasis, pt changed from ra to PsA on 03/25/2020. Assessment & Plan (03/24/2020 7:28 AM CARE ASSOCIATE): Quant gold neg 12/2019 HLA B27 negative [...] showed osteoporosis [facility] 08/2019---[facility] labs reveal positive anti-PATTERN MARKING SUPERVISOR antibody which is likely a false [...] showed osteoporosis [facility] 08/2019---[facility] labs reveal positive anti-PATTERN MARKING SUPERVISOR antibody which is likely a false [...] showed osteoporosis [facility] 08/2019---[facility] labs reveal positive anti-PATTERN MARKING SUPERVISOR antibody which is likely a false [...] showed osteoporosis [facility] 08/2019---[facility] labs reveal positive anti-PATTERN MARKING SUPERVISOR antibody which is likely a false [...] showed osteoporosis [facility] 08/2019---[facility] labs reveal positive anti-PATTERN MARKING SUPERVISOR antibody which is likely a false [...] showed osteoporosis [facility] 08/2019---[facility] labs reveal positive anti-PATTERN MARKING SUPERVISOR antibody which is likely a false [...] osteoporosis Assessment & Plan (04/20/2019 4:59 PM CARE ASSOCIATE): Quant gold neg 10/2018. TPMT nl 17 [...] 01/31/2017 Assessment & Plan (05/28/2022 8:05 AM CARE ASSOCIATE): Images from the original note were not included. Had orencia infusion 05/02/2022. Continue orencia monotherapy. Off arava due to lipase elevation. Seeing gi at [facility] now. [place] and egd utd and nl in past year per pt. Had a nl pancreatic US recently with gi. Past serologies: [facility] panel 08/2019---labs reveal positive anti-PATTERN MARKING SUPERVISOR antibody which is likely a false positive due to negative ASHLEY. RF neg but has a possible family hx of psoriatic arthritis (father) so if she develops psoriasis diagnosis will change to psoriatic arthritis. Rt hand US 09/2019 showed: F/u 1 month. Assessment & Plan (02/26/2022 12:12 PM CARE ASSOCIATE): Images from the original note were not included. High cdai. Her orencia is scheduled tomorrow. Continue orencia monotherapy. Off arava due to lipase elevation. Seeing gi at [facility] now. [place] and egd utd and nl in past year per pt. Had a nl pancreatic US recently with gi. She could be flaring up since her orencia is due tomorrow, overall she still feels that it is helping her joints. Past serologies: [facility] panel 08/2019---labs reveal positive anti-PATTERN MARKING SUPERVISOR antibody which is likely a false [...] no complications or infections. Seeing gi at [facility] now for her elevated lipase. [place] and egd utd and nl in past year per pt. If labs stable will restart low dose arava 10mg po every day. To stay off orencia until recovered from rt knee surgery. Past serologies: [facility] panel 08/2019---labs reveal positive anti-PATTERN MARKING SUPERVISOR antibody which is likely a false [...] orencia is scheduled tomorrow. Seeing gi at [facility] now. [place] and egd utd and nl in past year per pt. Due to burden of dz will give her a short course of oral prednisone. Discussed risks and se of systemic steroids. Past serologies: [facility] panel 08/2019---labs reveal positive anti-PATTERN MARKING SUPERVISOR antibody which is likely a false [...] orencia is scheduled tomorrow. Seeing gi at [facility] now. [place] and egd utd and nl in past year per pt. Due to burden of dz will give her a short course of oral prednisone. Discussed risks and se of systemic steroids. Past serologies: [facility] panel 08/2019---labs reveal positive anti-PATTERN MARKING SUPERVISOR antibody which is likely a false [...] gi dr arias for her pancreatitis . [place] and egd utd and nl in past year per pt. Seen with dr woodruff today. Past serologies: [facility] panel 08/2019---labs reveal positive anti-PATTERN MARKING SUPERVISOR antibody which is likely a false positive due to negative ASHLEY. RF neg but has a possible family hx of psoriatic arthritis (father) so if she develops psoriasis diagnosis will change to psoriatic arthritis. Rt hand US 09/2019 showed: F/u 1 month. Assessment & Plan (06/28/2021 10:22 AM CARE ASSOCIATE): Images from the original note were not [...] Past serologies: [facility] panel 08/2019---labs reveal positive anti-PATTERN MARKING SUPERVISOR antibody which is likely a false positive due to negative ASHLEY. RF neg but has a possible family hx of psoriatic arthritis (father) so if she develops psoriasis diagnosis will change to psoriatic arthritis. Rt hand US 09/2019 showed: F/u 1 month. Assessment & Plan (06/15/2021 10:46 AM CARE ASSOCIATE): Images from the original note were not [...] Past serologies: [facility] panel 08/2019---labs reveal positive anti-PATTERN MARKING SUPERVISOR antibody which is likely a false positive due to negative ASHLEY. RF neg but has a possible family hx of psoriatic arthritis (father) so if she develops psoriasis diagnosis will change to psoriatic arthritis. Rt hand US 09/2019 showed: F/u 1 month. Assessment & Plan (06/09/2021 10:16 AM CARE ASSOCIATE): Images from the original note were not [...] Past serologies: [facility] panel 08/2019---labs reveal positive anti-PATTERN MARKING SUPERVISOR antibody which is likely a false positive due to negative ASHLEY. RF neg but has a possible family hx of psoriatic arthritis (father) so if she develops psoriasis diagnosis will change to psoriatic arthritis. Rt hand US 09/2019 showed: F/u 1 month. Assessment & Plan (06/09/2021 8:29 AM CARE ASSOCIATE): Images from the original note were not [...] Past serologies: [facility] panel 08/2019---labs reveal positive anti-PATTERN MARKING SUPERVISOR antibody which is likely a false positive due to negative ASHLEY. RF neg but has a possible family hx of psoriatic arthritis (father) so if she develops psoriasis diagnosis will change to psoriatic arthritis. Rt hand US 09/2019 showed: F/u 1 month. Assessment & Plan (05/05/2021 10:11 PM CARE ASSOCIATE): Images from the original note were not [...] Past serologies: [facility] panel 08/2019---labs reveal positive anti-PATTERN MARKING SUPERVISOR antibody which is likely a false positive due to negative ASHLEY. RF neg but has a possible family hx of psoriatic arthritis (father) so if she develops psoriasis diagnosis will change to psoriatic arthritis. Rt hand US 09/2019 showed: F/u 1 month. Assessment & Plan (03/31/2021 9:24 AM CARE ASSOCIATE): Images from the original note were not [...] Past serologies: [facility] panel 08/2019---labs reveal positive anti-PATTERN MARKING SUPERVISOR antibody which is likely a false [...] Past serologies: [facility] panel 08/2019---labs reveal positive anti-PATTERN MARKING SUPERVISOR antibody which is likely a false [...] Past serologies: [facility] panel 08/2019---labs reveal positive anti-PATTERN MARKING SUPERVISOR antibody which is likely a false [...] Past serologies: [facility] panel 08/2019---labs reveal positive anti-PATTERN MARKING SUPERVISOR antibody which is likely a false positive due to negative ASHLEY. RF neg but has a possible family hx of psoriatic arthritis (father) so if she develops psoriasis diagnosis will change to psoriatic arthritis. Rt [facility] 09/2019 showed: Assessment & Plan (07/18/2020 8:24 AM CDT): Images from the original note were not included. High cdai. On imuran to 100mg bid and Stelara. Discussed potential se and risks of stelara tx. To see her gi for her diarrhea, she is due for colonoscopy. Continue imuran. To get covid 19 vaccine when available. Past serologies: [facility] panel 08/2019---labs reveal positive anti-PATTERN MARKING SUPERVISOR antibody which is likely a false positive due to negative ASHLEY. RF neg but has a possible family hx of psoriatic arthritis (father) so if she develops psoriasis diagnosis will change to psoriatic arthritis. Rt [facility] 09/2019 showed: Assessment & Plan (06/03/2020 5:27 PM CARE ASSOCIATE): Images from the original note were not [...] Past serologies: [facility] panel 08/2019---labs reveal positive anti-PATTERN MARKING SUPERVISOR antibody which is likely a false positive due to negative ASHLEY. RF neg but has a possible family hx of psoriatic arthritis (father) so if she develops psoriasis diagnosis will change to psoriatic arthritis. Rt [facility] 09/2019 showed: Assessment & Plan (03/25/2020 3:01 PM CARE ASSOCIATE): Images from the original note were not [...] Past serologies: [facility] panel 08/2019---labs reveal positive anti-PATTERN MARKING SUPERVISOR antibody which is likely a false positive due to negative ASHLEY. RF neg but has a possible family hx of psoriatic arthritis (father) so if she develops psoriasis diagnosis will change to psoriatic arthritis. [facility] [place] 09/2019 showed: Assessment & Plan (03/24/2020 7:29 AM CARE ASSOCIATE): Images from the original note were not included. Bernardino zapien Wants to go back to sq orencia, gave pt 1 mo of samples and will start approval. Can't come in for iv orencia, her dad is on hospice. Increase imuran to 100mg bid, check cbc/cmp in 2 weeks and f/u in 1month. Past serologies: [facility] panel 08/2019---labs reveal positive anti-PATTERN MARKING SUPERVISOR antibody which is likely a false positive due to negative ASHLEY. RF neg but has a possible family hx of psoriatic arthritis (father) so if she develops psoriasis diagnosis will change to psoriatic arthritis. Rt [facility] 09/2019 showed: Assessment & Plan (02/19/2020 11:34 AM CDT): Bernardino zapien Wants to go back to sq orencia, gave pt 1 mo of samples and will start approval. Can't come in for iv orencia, her dad is on hospice. Increase imuran to 100mg bid, check cbc/cmp in 2 weeks and f/u in 1month. Past serologies: [facility] panel 08/2019---labs reveal positive anti-PATTERN MARKING SUPERVISOR antibody which is likely a false positive due to negative ASHLEY. RF neg but has a possible family hx of psoriatic arthritis (father) so if she develops psoriasis diagnosis will change to psoriatic arthritis. Rt [facility] 09/2019 showed: Assessment & Plan (01/22/2020 12:51 [...] Past serologies: [facility] panel 08/2019---labs reveal positive anti-PATTERN MARKING SUPERVISOR antibody which is likely a false [...] every day. [facility] panel 08/2019---labs reveal positive anti-PATTERN MARKING SUPERVISOR antibody which is likely a false positive due to negative ASHLEY. Otherwise labs look good. No evidence of a new autoimmune connective tissue disease. Cont orencia sq and imuran 100mg po qhs. [place] better on iv orencia, will change from [...] since resolved. [facility] panel 08/2019---labs reveal positive anti-PATTERN MARKING SUPERVISOR antibody which is likely a false [...] of orencia. [facility] panel 08/2019---labs reveal positive anti-PATTERN MARKING SUPERVISOR antibody which is likely a false [...] of orencia. [facility] panel 08/2019---labs reveal positive anti-PATTERN MARKING SUPERVISOR antibody which is likely a false [...] wnl. Assessment & Plan (04/23/2019 1:46 PM CARE ASSOCIATE): High cdai. On orencia IV but has [...] citrate. Assessment & Plan (06/03/2020 2:56 PM CARE ASSOCIATE): Multiple kidney stones for over 10 yrs, [...] on file Legal Sex Female 9:24 PM CARE ASSOCIATE Gender Identity Female 08/14/2022 11:32 AM [...] HEPATITIS C AB Routine 06/29/2015 2:43 PM CARE ASSOCIATE from Last 3 Months or Most Recently Relevant to Health Maintenance Results * ThinPrep Pap with HPV (12/24/2018 3:41 PM CDT) 12/24/2018 3:41 PM CDT 12/25/2018 8:54 AM CDT [facility] - 12/26/2018 2:53 PM CDT [facility] Department of Pathology [address] [place] [address], [place] [address] Final Report with Addendum Patient Name: JULIAN SAUER Address: [address] [place] [address] Gender: F : 1975 (Age: 43) Service: Laboratory Location: [facility] #: [id number] Patient Type: CH Ref Lab Taken: 12/24/2018 Received: 12/25/2018 Accessioned:: 12/26/2018 Reported: 12/26/2018 Physician(s): Curtis Oseguera M.D. [facility] Diagnosis: Source of Specimen: SCREENING IMAGED PAP [...] [facility] as part of an ongoing chemistry quality control technician program and in compliance with federally [...] determined by the Surgical Pathology Department [facility]. It has not been cleared or approved by the U. S. Food and Drug Administration. us Curtis Oseguera MD LAB CYTOLOGY ORDERABLES Final Result [facility] [id number] [place], [place] [address] [phone] * Serum Hepatitis C ab (06/29/2015 2:43 PM CARE ASSOCIATE) HCV ab Non-Reacti ve Non-Reacti ve HISTORICAL RESULTS Serum 06/29/2015 2:43 PM CARE ASSOCIATE Miriam VALLE LAB BLOOD ORDERAB LES Final Result Performing Organization Address City[facility] Co de Phone Number HISTORICAL RESULTS from Last 3 Months or Most Recently Relevant to Health Maintenance Insurance [facility] BLUE ACCESS ID BLUE ACCESS ID BLUE ACCESS ID Care Teams Sleeve Setter Relationship Specialty Start Date End Date Bhupinder Tobias MD [address] [place] [address] PCP - General Internal Medicine 06/03/20 Cash Woodruff III, MD [address] [place] [address] Rheumatology 04/12/17 Jorge Aguiar MD [address] [place] [address] Consulting Physician Urology 11/10/20 Khoa Arias MD [address] [place] [address] Referring Physician Gastroenterology 03/20/21
--- OUTSIDE RECORDS SUMMARY | 2024-08-26 17:34 | XMS_ITS | Clinical Summary ---
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 Gender Identity Not on file Sexual Orientation Not on file Last Filed Vital Signs Vital Sign Reading Time Taken Comments Blood Pressure 108/79 03/01/2021 3:00 PM CEO [employer]IFF DAVIS Pulse 79 03/01/2021 3:00 PM CEO [employer]IFF DAVIS Temperature 36.2 C (97.2 F) 03/01/2021 12:34 PM CEO [employer]IFF DAVIS Respiratory Rate 16 03/01/2021 3:00 PM CEO ZIFF DAVIS Oxygen Saturation 98% 03/01/2021 3:00 PM CEO [employer]IFF DAVIS Inhaled Oxygen Concentration - - Weight 86.1 kg (189 lb 13.1 oz) 021 12:34 PM CEO ZIFF DAVIS Height 167.6 cm (5' 6 ) 03/01/2021 12:3 4 PM CEO ZIFF DAVIS Body Mass Index 30.64 03/01/2021 12:34 PM CEO ZIFF DAVIS Plan of Treatment Health Maintenance Due Date [...] patient's age to complete this topic Insurance [facility] Care Teams Tactical Air Control Party Relationship Specialty Start Date End Date Bhupinder Tobias MD [address] [address] PCP - General INTERNAL MEDICINE 03/01/21
--- OUTSIDE RECORDS SUMMARY | 2024-08-26 17:34 | XMS_ITS | Continuity of Care Document ---
Author Organization [facility] Address [address] [place] [address] Phone Care Team Providers Care Drawer In Name Role Phone Amadeo Arias MD Unavailable [...] Copied on Encounter OFFICE/OUTPAT IENT VISIT EST [facility], [address] [address], [place], [address], tel:[phone] [facility] [place] Patellofemoral instability, rightOther specified sprain of right wrist, initial encounter 0 6 Hugo Childs. [address], [place], [place], [id number] . tel: [phone] [facility], [address], [place], [address], [place] tel:[phone] [facility] Acute bilateral low back pain without sciaticaLeft hip painArthralgia of right hipPatellofemo ral instability, leftPatellofem oral instability, right 6 Hugo Childs. [address], [place], [place], [id number] . tel: [phone] OFFICE CONSULTATION [facility], [address], [place], [address], tel:[phone] [facility] [place] Patellofemoral instability, rightPatellofe moral instability, leftArthralgia of right hipLeft hip painAcute bilateral low back pain without sciatica 201 6 Hugo Childs. [address], [place], [place], [id number] . tel: [phone] Referring Provider: Michelle De La Torre[address], [place], [address] . tel:[phone] Family History Family Member Type Diagnosis Age At Onset Sister Problem (finding) Alive and well Payers Payer name Insurance type Covered alliance party ID Authoriza tion(s) [facility] Choice/Choice Plus [id number] [id number] Social History Type Description Quantity Date Captured [...]
--- NOTE | 2024-08-26 18:05 | ED.HA ---
HPI - Headache General Chief Complaint: Headache Stated Complaint: Headache, right shoulder doesn't feel right Time Seen by Provider: 08/26/24 17:19 History of Present Illness HPI Narrative: Patient is a 49-year-old female presents to the ER with headache and neck pain. 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 Patient reports last night when she was sleeping she dislocated her right shoulder. She was able to pop it back in, but experienced severe headache and right neck pain immediately afterwards that has not subsided. Patient reports she was diagnosed with Meredith-Danlos in 2013 and has dislocated many joints since then. She reports she called her primary care provider earlier today who prescribed her baclofen for the muscle spasms but also advised her to go to the ER. At the time of examination patient reports her right neck pain radiates down the right side of her chest. Related Data Home Medications ?Medication ?Instructions ?Recorded ?Confirmed ?Last Taken ?Type bupropion HCl 300 mg 24 hr tablet, 300 mg PO DAILY 05/02/20 06/11/24 06/11/24 History extended release (Wellbutrin XL) potassium citrate 15 mEq (1,620 1,620 mg PO BID 05/02/20 06/11/24 06/11/24 History mg) tablet,extended release propranolol 10 mg tablet 10 mg PO QAM 05/02/20 06/12/24 06/12/24 History trazodone 100 mg tablet 100 mg PO HS 05/02/20 06/12/24 06/11/24 History alprazolam 0.5 mg tablet 0.5 mg PO TID PRN Anxiety 09/15/20 06/12/24 06/11/24 History cholecalciferol (vitamin D3) 125 5,000 unit PO DAILY 09/15/20 06/11/24 06/11/24 History mcg (5,000 unit) tablet (Vitamin D3) cyanocobalamin (vitamin B-12) 1,000 mcg PO DAILY 09/15/20 06/11/24 06/11/24 History 1,000 mcg tablet duloxetine 30 mg capsule,delayed 30 mg PO DAILY 04/29/24 06/11/24 06/11/24 History release Allergies Allergy/AdvReac Type Severity Reaction Status Date / Time No Known Allergies Allergy Verified 08/26/24 18:22 Review of Systems Review of Systems: All systems reviewed & are unremarkable except as noted in HPI and below PMFSH Past Medical History Medical History Aspiration into airway Colon cancer screening Elevated lipase Decreased appetite LLQ pain Arthritis Osteoporosis Psoriasis Excessive thirst UTI (urinary tract infection) IBS (irritable bowel syndrome) Atrial tachycardia Hoarseness Short-term memory loss Chills History of kidney stones Abdominal pain in female Abnormal serum lipase level Abnormal weight gain Acute cystitis without hematuria Acute diverticulitis Acute non-recurrent pansinusitis Acute shoulder pain Adult idiopathic generalized osteoporosis Age-related osteoporosis with current pathological fracture, unspecified ankle and foot, initial encounter for fracture Anemia Anxiety Arthralgia Arthritis of both knees Bilateral tinnitus Body mass index (bmi) 39.0-39.9, adult (01/12/19) Bone spur of left foot Chronic migraine Chronic narcotic use Chronic pain syndrome Cyst of ovary Diarrhea Dietary counseling and surveillance (08/25/15) Diverticulitis of large intestine without perforation or abscess Diverticulosis of intestine, part unspecified, without perforation or abscess with bleeding Duodenal ulcer Dysphagia Dysuria Meredith-Danlos syndrome Epigastric pain Establishing care with new doctor, encounter for Fatigue Fear of flying Fibromyalgia Gastric ulcer Gastroesophageal reflux disease Generalized abdominal pain Generalized anxiety disorder History of dislocation of knee Hyperextension deformity of knee Hyperthyroidism Hypokalemia Hypovitaminosis D Immunosuppressed status Impingement syndrome of right shoulder Irregular menses 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 syndrome with constipation 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 diarrhea alf use of drug Low TSH level Low back pain Luteal cystic ovary disease Microscopic hematuria Migraine, unspecified, not intractable, without status migrainosus Multinodular goiter Muscle weakness of lower extremity Musculoskeletal pain Nausea Nephrolithiasis Nonintractable migraine Osteoarthritis of spine with radiculopathy, lumbar region Other chronic pain Overweight (11/22/16) PUD (peptic ulcer disease) Pain in both hands Pain of both hip joints Pain of left heel Pneumonia due to infectious organism Polyuria Prepatellar bursitis of both knees Prepatellar bursitis, left knee Rheumatoid arthritis of multiple sites with negative rheumatoid factor Rheumatoid arthritis of unspecified site with involvement of other organs and systems Right lower quadrant abdominal pain Swelling Swelling of finger joint of left hand Thyroid nodule Urinary symptom or sign Urinary tract infection without hematuria Weight loss Yeast vaginitis Surgical History Surgical History History of hysterectomy 2022 History of knee surgery ANUSHA reconstruction. History of lithotripsy x4. Previous section History of colonoscopy History of tonsillectomy Family History Family History Mother Patient's mother is in good health Family history of arthritis Father Patient's father is in good health Family history of alcoholism Family history of arthritis Family history of obesity Family history of chronic obstructive pulmonary disease Sibling Patient's sister is in good health Patient's brother is in good health Grandparent Family history of Alzheimer's disease Family history of lung cancer Other Family history of attention deficit hyperactivity disorder (ADHD) Social History Social History Smoking packs per day: 0.5 Smoking cigarettes per day: 10.0 Years smoked: 20 Smoking pack-years: 10.00 Smoking status: Former smoker Tobacco type: cigarettes Second hand tobacco smoke exposure: Yes Smoking end date: 06/04/12 Alcohol intake: current Drinks per week: 2 Alcohol use details: 2/MONTH Substance use: never Substance use type: does not use Other substance usage details: STOPPED GUMMIES MAY 2023 Do You Feel Safe in your Home?: Yes Lack of Transportation: No Lack of Food: Never True Current Housing: I Have Housing Concerned About Future Housing: No Difficulty Paying Gas/Electric Bills: No Difficulty Paying for Meds: No Currently Unemployed: No Education: Bachelor's Degree Difficulty w/ Childcare or Family Care: No Living arrangements: with family Additional living arrangements comments: AND CHILDREN Occupation/Education: retired 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 HEAD: Normocephalic, atraumatic. NECK: Supple. No adenopathy, no masses. RESPIRATORY: Airway patent, respirations nonlabored. Clear to auscultation bilaterally, no rales, rhonchi, wheezing. CARDIOVASCULAR: Regular rate and rhythm without murmurs, rubs, or gallops. Peripheral pulses 2+ and equal bilaterally. ABDOMINAL: Soft, nontender, nondistended, no hepatosplenomegaly. Normoactive BS. MUSCULOSKELETAL: Moves all extremities. Strength/ROM intact without gross deformities. SKIN: Warm, dry, normal color. No rashes. NEURO: A&O X3. Speech clear. Cranial nerves II-XII intact. No ataxic movements. PSYCHIATRIC: Appropriate mood and affect. Normal interaction. Course Vital Signs Vital signs: Vital Signs Temperature 36.4 C 08/26/24 16:27 Pulse Rate 90 08/26/24 16:27 Respiratory Rate 16 08/26/24 16:27 Blood Pressure 128/102 H 08/26/24 16:27 Pulse Oximetry 100 08/26/24 16:27 Oxygen Delivery Room Air 08/26/24 16:27 Temperature 36.4 C 08/26/24 16:27 Pulse Rate 90 08/26/24 16:27 Respiratory Rate 16 08/26/24 16:27 Blood Pressure 128/102 H 08/26/24 16:27 Pulse Oximetry 100 08/26/24 16:27 Oxygen Delivery Room Air 08/26/24 16:27 MDM - Headache MDM Narrative Medical decision making narrative: Patient is a 49-year-old female presents to the ER with headache and neck pain. 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 Patient reports last night when she was sleeping she dislocated her right shoulder. She was able to pop it back in, but experienced severe headache and right neck pain immediately afterwards that has not subsided. Patient reports she was diagnosed with Meredith-Danlos in 2013 and has dislocated many joints since then. She reports she called her primary care provider earlier today who prescribed her baclofen for the muscle spasms but also advised her to go to the ER. At the time of examination patient reports her right neck pain radiates down the right side of her chest. Labs Ordered: none necessary Imaging Ordered: right shoulder x-ray, chest x-ray, CT cervical spine, CT brain Medications Ordered: Zofran ODT, Windfall PO Results: Patient's right shoulder x-ray indicates No acute fracture. The glenohumeral and acromioclavicular joint space is maintained The visualized portion of the adjacent right lung is clear. The humeral head is well seated within the glenoid fossa. Pt's cervical spine indicates Straightening and slight reversal of the normal curvature of the cervical spine is identified, likely muscular in origin. No acute fractures are present. The bilateral lung apices are unremarkable. No soft tissue abnormality is present. The airway is patent. Pt's head CT scan indicates The ventricles are normal in size, shape and position. There is no mass, mass effect or midline shift. There is no abnormal extra-axial fluid collection or intracranial hemorrhage. Visualized paranasal sinuses are clear. The mastoid air cells are well aerated. No acute displaced fractures within the overlying cranium. Pt's chest x-ray indicates The cardiomediastinal silhouette is unremarkable. The lungs are clear. Diagnosis: Cervical strain, shoulder strain, migraine headache Patient Education/Shared MDM: Results of imaging shared with patient. She endorses mild improvement of symptoms following medication administration. Will treat pt with oral migraine medications prior to being discharged. Patient strongly advised to maintain hydration status upon discharge and follow-up with their PCP as soon as possible. They will be discharged home with no new prescriptions. Strict return precautions provided. Patient verbalized understanding and is in agreement with plan. Vital signs stable at time of discharge. All questions answered. Differential Diagnosis Differential diagnosis: Likely migraine, tension headache, subarachnoid hemorrhage and headache Imaging Data Attestation: I personally reviewed and interpreted this imaging study as follows: Radiologist's impression: Impressions Head CT 08/26/24 18:19 Impression: No acute intracranial hemorrhage or suspicious mass effect. Cervical Spine CT 08/26/24 18:21 Impression: Straightening and slight reversal of the normal curvature of the cervical spine, likely muscular in origin. No acute fracture. Chest X-Ray 08/26/24 18:36 IMPRESSION: No focal infiltrate or effusion. Shoulder X-Ray 08/26/24 18:39 IMPRESSION: No acute fracture or anterior dislocation. Discharge Plan Discharge Clinical Impression: Migraine, Headache, Cervical muscle strain, Muscle strain, shoulder region Patient Disposition: Home Condition: Stable Instructions: Antibiotic Form, Migraine Headache (ED) Additional Instructions: Please return to the ER with any worsening symptoms. Follow-up with primary care provider as soon as possible. Take all medications as prescribed, including regularly scheduled medications. Patient Language: Slovak Prescriptions: No Action propranolol 10 mg tablet 10 mg PO QAM bupropion HCl [Wellbutrin XL] 300 mg tablet extended release 24 hr 300 mg PO DAILY trazodone 100 mg tablet 100 mg PO HS potassium citrate 15 mEq tablet extended release 1,620 mg PO BID metoclopramide HCl [Reglan] 10 mg tablet See Rx Instructions PO .COMPLEX Qty: 30 11RF Rx Instructions: Take 10 mg PO before dinner alprazolam 0.5 mg tablet 0.5 mg PO TID PRN (Reason: Anxiety) cyanocobalamin (vitamin B-12) 1,000 mcg Tablet 1,000 mcg PO DAILY cholecalciferol (vitamin D3) [Vitamin D3] 125 mcg (5,000 unit) Tablet 5,000 unit PO DAILY duloxetine 30 mg capsule,delayed release(DR/EC) 30 mg PO DAILY Patient Comments: Says takes at HS ketorolac 10 mg tablet 10 mg PO Q6H 5 Days Qty: 20 0RF Patient Comments: No longer taking pantoprazole 40 mg tablet,delayed release (DR/EC) See Rx Instructions .ROUTE .COMPLEX Qty: 60 11RF Dose Instruction: TAKE 1 TABLET BY MOUTH TWICE DAILY Rx Instructions: TAKE 1 TABLET BY MOUTH TWICE DAILY dicyclomine 20 mg tablet 20 mg PO TID PRN (Reason: abdominal pain) Qty: 120 4RF lactulose 20 gram/30 mL solution 20 g PO BID Qty: 1200 0RF sucralfate 1 gram tablet See Rx Instructions .ROUTE .COMPLEX Qty: 120 0RF Dose Instruction: TAKE 1 TABLET BY MOUTH BEFORE MEALS AND AT BEDTIME Rx Instructions: TAKE 1 TABLET BY MOUTH BEFORE MEALS AND AT BEDTIME sucralfate 100 mg/mL suspension See Rx Instructions .ROUTE .COMPLEX Qty: 420 0RF Dose Instruction: TAKE 10 ML BY MOUTH FOUR TIMES DAILY BEFORE MEALS AND AT BEDTIME Rx Instructions: TAKE 10 ML BY MOUTH FOUR TIMES DAILY BEFORE MEALS AND AT BEDTIME sumatriptan succinate 6 mg/0.5 mL pen injector See Rx Instructions .ROUTE .COMPLEX Qty: 2 5RF Dose Instruction: INJECT 0.5 ML UNDER SKIN ONCE FOR HEADACH, MAY REPEAT DOSE ONCE IN 1 HOUR IF NOT RELIEVED Rx Instructions: INJECT 0.5 ML UNDER SKIN ONCE FOR HEADACH, MAY REPEAT DOSE ONCE IN 1 HOUR IF NOT RELIEVED ondansetron HCl 4 mg tablet 4 - 8 mg PO Q8H PRN (Reason: nausea and vomiting) Qty: 20 0RF Wegovy 0.5 mg/0.5 mL pen injector 0.5 mg subcut WEEKLY Qty: 2 1RF hydrocodone-acetaminophen 5-325 mg tablet 1 tablet PO Q8H PRN (Reason: pain) Qty: 75 0RF baclofen 10 mg tablet 10 mg PO BID Qty: 30 0RF Follow-up/Referrals: Jose Zhang DO [Primary Care Provider] - Time of Disposition: 19:40
[2024-08-26] MEDS: ONDANSETRON HCL ODT 4 MG TABLET PO (18:21)
[2024-08-26] MEDS: HYDROcodone/acetaminophen (*CRX) 5-325 MG TABLET 1 TAB PO (18:21)
[2024-08-26 19:36] VITALS: BP 133/93; PULSE 82; RESP 16; O2SAT 99
[2024-08-26 19:49] LABS: Add Urine Microscopic? NO; Appearance Urine Clear (Clear); Bilirubin Urine Negative (Negative); Blood Urine Negative (Negative); Color Urine Yellow (Yellow); Glucose Urine UA Negative (Negative); Ketones Urine Trace mg/dL (Negative); Leukocyte Esterase Ur Negative LEU/UL (Negative); Nitrate Urine Negative (Negative); Protein Urine Negative (Negative); Specific Grav Ur 1.018 (1.001-1.035); pH Urine 6.5 (5.0-9.0)
[2024-08-26] MEDS: KETOROLAC (*BKC) 60 MG/2 ML VIAL IM (19:51)
[2024-08-26] MEDS: METOCLOPRAMIDE HCL 10 MG TABLET PO (19:54)
[2024-08-26] MEDS: diphenhydrAMINE HCl CAP 25 MG CAPSULE 50 MG PO (19:54)
[2024-08-26 21:18] VITALS: BP 125/83; PULSE 97; RESP 17; O2SAT 96
== END 2024-08-26 21:21 | disposition home or self-care (01) ==
PROVIDERS: Emergency Provider Registered Nurse; PCP Internal Medicine
DX: G43.909 Migraine, unspecified, not intractable, without status migrainosus (principal); S16.1XXA Strain of muscle, fascia and tendon at neck level, initial encounter; S46.911A Strain of unspecified muscle, fascia and tendon at shoulder and upper arm level, right arm, initial encounter; L40.9 Psoriasis, unspecified; K58.9 Irritable bowel syndrome, unspecified; M81.8 Other osteoporosis without current pathological fracture; M17.0 Bilateral primary osteoarthritis of knee; M79.7 Fibromyalgia; M06.9 Rheumatoid arthritis, unspecified; G89.4 Chronic pain syndrome; F41.1 Generalized anxiety disorder; Q79.60 Ehlers-Danlos syndrome, unspecified; K21.9 Gastro-esophageal reflux disease without esophagitis; K58.1 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 syndrome with constipation; Z87.442 Personal history of urinary calculi; Z87.440 Personal history of urinary (tract) infections; Z86.2 Personal history of diseases of the blood and blood-forming organs and certain disorders involving the immune mechanism; Z87.01 Personal history of pneumonia (recurrent); Z87.891 Personal history of nicotine dependence; Z90.710 Acquired absence of both cervix and uterus; X58.XXXA Exposure to other specified factors, initial encounter
CPT/HCPCS: 70450; 71046; 72125; 73030; 81003; 96372; 99284; A9270; J1885

== ENCOUNTER 2024-09-28 06:26 | Emergency (ER) | payer OTHER, SELFPAY ==
--- NOTE | ~2024-09-28 | CT_ITS ---
EXAMINATION: CT abdomen pelvis w con DATE: 09/28/2024 08:04 INDICATION: Left-sided abdominal pain TECHNIQUE: Computed tomography (CT) of the abdomen and pelvis was performed with 100 mL Omnipaque-350 intravenous contrast. Automated exposure control and iterative reconstruction technique were employe d. The dose-length product was 849.38 mGy-cm. COMPARISON: CT dated 05/09/2024 and MRI dated 08/01/2022 FINDINGS: Mild dependent atelectasis in bilateral lower lobes. Heart size is normal. No pericardial or pleural effusion. Calcified left hilar lymph nodes and multiple splenic and a few hepatic calcifications cons istent with old granulomatous disease. Small sliding-type hiatal hernia. There are a few avidly enhan cing lesions in the right hepatic lobe the largest measuring up to 1.5 cm which are unchanged since M RI dated 08/31/2022 which fails appearing T2 hyperintense and with persistent delayed enhancement most consistent with hemangiomas. There are multiple small bilateral nonobstructing renal stones, the lar gest measuring 3 mm in maximal diameter. There are also a few bilateral low-attenuation renal cysts t he largest on the left measuring 2.4 cm. There is moderate colonic diverticulosis with a sigmoid pred ominance. There is no adjacent inflammatory change to suggest diverticulitis. Small bowel and appen carlos are normal. Decompressed bladder is unremarkable. The uterus is not identified and has likely bee n surgically resected. Mild lower thoracic spondylosis and transitional sacralized L5 segment. IMPRESSION: 1. No acute intra-abdominal/pelvic process. 2. Diverticulosis. Bilateral nonobstructing nephrolithiasis. Reviewed, dictated and finalized at location A.
--- OUTSIDE RECORDS SUMMARY | 2024-09-28 06:28 | XMS_ITS | Patient Health Record ---
Author Organization [facility] [employer] [facility] Address [address] [facility] [address] [place] [address] Care Team Providers Care Tack Picker Name Role Phone Jose Zhang DO Primary Care Provider UnavailAlix Sher Unavailable [phone] Mario Diaz Unavailable [phone] Natty Rogers Unavailable [phone] Jared Jensen Unavailable [phone] Chari Pappas Unavailable [phone] Jyoti New Unavailable [phone] Allergies No Known Allergies Results Component Value Reference Range Notes UDT Reviewed date:01/30/2024 09:33:30 AM Interpretation: Performing Lab: Notes/Report: THC p 0 - 50 ng/ml Cocaine n 0 - 300 ng/ml Amphetamine n 0 - 1000 ng/ml Buprenorphine (BUP) n 0 - 10 ng/ml Secobarbital (Bar) n 0 - 300 ng/ml Oxazepam (BZO) p 0 - 300 ng/ml 5-uzjnmqlnyi-2,2-bzjtjvve-5,3-diphenylpyrrolidine (ISMAEL P) n 0 - 300 ng/ml Methamphetamine (MET) n 0 - 1000 ng/ml Methylenedioxymethamphetamine (MDMA) n 0 - 500 ng/ml Morphine (MOP 300/AAN7320) n 0 - 300 ng/ml Methadone (MTD) n 0 - 300 ng/ml Phencyclidine (PCP) n 0 - 25 ng/ml Nortriptyline (TCA) n 0 - 1000 ng/ml Oxycodone n 0 - 300 ng/ml x n 0 - 300 ng/ml UDT Reviewed date:09/23/2024 10:59:52 AM Interpretation: Performing Lab: Notes/Report: THC POS 0 - 50 ng/ml Cocaine NEG 0 - 300 ng/ml Amphetamine NEG 0 - 1000 ng/ml Buprenorphine (BUP) NEG 0 - 10 ng/ml Secobarbital (Bar) NEG 0 - 300 ng/ml Oxazepam (BZO) POS 0 - 300 ng/ml 2-ufgctzteqp-1,8-jhfnzmtp-1,3-diphenylpyrrolidine (ISMAEL P) NEG 0 - 300 ng/ml Methamphetamine (MET) NEG 0 - 1000 ng/ml Methylenedioxymethamphetamine (MDMA) NEG 0 - 500 ng/ml Morphine (MOP 300/[id number]) POS 0 - 300 ng/ml Methadone (MTD) NEG 0 - 300 ng/ml Phencyclidine (PCP) NEG 0 - 25 ng/ml Nortriptyline (TCA) NEG 0 - 1000 ng/ml Oxycodone NEG 0 - 300 ng/ml x NEG 0 - 300 ng/ml UDT Reviewed date:11/20/2023 09:30:02 AM Interpretation: Performing Lab: Notes/Report: THC pos 0 - 50 ng/ml Cocaine neg 0 - 300 ng/ml Amphetamine neg 0 - 1000 ng/ml Buprenorphine (BUP) neg 0 - 10 ng/ml Secobarbital (Bar) neg 0 - 300 ng/ml Oxazepam (BZO) pos 0 - 300 ng/ml 3-dxeahoysrj-6,6-odyykooj-6,3-diphenylpyrrolidine (ISMAEL P) neg 0 - 300 ng/ml Methamphetamine (MET) neg 0 - 1000 ng/ml Methylenedioxymethamphetamine (MDMA) neg 0 - 500 ng/ml Morphine (MOP 300/KUP8330) pos 0 - 300 ng/ml Methadone (MTD) neg 0 - 300 ng/ml Phencyclidine (PCP) neg 0 - 25 ng/ml Nortriptyline (TCA) neg 0 - 1000 ng/ml Oxycodone pos 0 - 300 ng/ml x neg 0 - 300 ng/ml UDT Reviewed date:08/26/2024 08:55:57 PM Interpretation: Performing Lab: Notes/Report: THC p 0 - 50 ng/ml Cocaine n 0 - 300 ng/ml Amphetamine n 0 - 1000 ng/ml Buprenorphine (BUP) n 0 - 10 ng/ml Secobarbital (Bar) n 0 - 300 ng/ml Oxazepam (BZO) n 0 - 300 ng/ml 7-fmcilvnpdk-1,2-ojevvrka-0,3-diphenylpyrrolidine (ISMAEL P) n 0 - 300 ng/ml Methamphetamine (MET) n 0 - 1000 ng/ml Methylenedioxymethamphetamine (MDMA) n 0 - 500 ng/ml Morphine (MOP 300/XIP1343) p 0 - 300 ng/ml Methadone (MTD) n 0 - 300 ng/ml Phencyclidine (PCP) n 0 - 25 ng/ml Nortriptyline (TCA) n 0 - 1000 ng/ml Oxycodone n 0 - 300 ng/ml x n 0 - 300 ng/ml Reason For Referral No Information Medications Medication SIG (Take, Route, Frequency, Duration) Notes Start Date End Date Status traZODone HCl 100 MG 1 tablet at bedtime Oral Once a day Active DULoxetine HCl 60 MG 1 capsule Oral Once a day total dose 90 mg Active Propranolol HCl 10 MG 1 tablet Orally 3 times a day 08/24/2024 Active ALPRAZolam 0.5 MG 1 tablet twice a day, 0.5 tablet as needed Oral see sign for 30 days continue to minimize use 09/23/2024 Active Gabapentin 100 MG Oral Ac tive buPROPion HCl ER (XL) 300 MG 1 tablet in the morning Oral Once a day Active HYDROcodone-Acetamino phen 5-325 MG Oral Active Dicyclomine HCl 20 MG Oral Active SUMAtriptan Succinate 6 MG/0.5ML Subcutaneous Active DULoxetine HCl 30 MG 1 capsule Orally Once a day total dose 90 mg Active LUBIPROSTONE 24 MCG CAPSULE *Reorder from aitainment for eRx and Interaction Alerts* Active Potassium Citrate ER 15 mEq Oral *Pick strength-form from aitainment for eRX* Active Pantoprazole Sodium 40 MG Oral Active Ondansetron 8 MG Oral Act stanley Metoclopramide HCl 5 MG Oral Active Social History Tobacco Use: Social History Observation Description Date Details (start date - stop date) Former Smoker 04/22/1992 - 05/23/2012 Sex Assigned At : Social History Observation Description Sex Assigned At Female Household Question Answer Notes Marital status: Tobacco Control (Standard) Question Answer Notes Tobacco use: Former smoker When did you start smoking? 04/22/1992 When did you stop smoking? 05/23/2012 How long has it been since you last smoked? Madhu ter than 10 years AUDIT-C (Standard) Question Answer Notes Interpretation Negative [...] employed?: NoWho is your employer?: I have [employer] and have been ?retired? for 5 years.Marriage and SexualityWhat is your relationship status?: MarriedAre you sexually active?: NoDo you use protection during sex?: NoHow many children do you have?: 5Home and EnvironmentAre there any guns present in your home?: NoAdvance DirectiveDo you have an advance directive?: NoDo you have a medical power of reverser?: No Social History Substance UseDo you or [...] employed?: NoWho is your employer?: I have [employer] and have been ?retired? for 5 years.Marriage and SexualityWhat is your relationship status?: MarriedAre you sexually active?: NoDo you use protection during sex?: NoHow many children do you have?: 5Home and EnvironmentAre there any guns present in your home?: NoAdvance DirectiveDo you have an advance directive?: NoDo you have a medical power of reverser?: No Social History Substance UseDo you or [...] technical, or vocational programAre you currently employed?: NoW is your employer?: I have [employer] and have been ?retired? for 5 years.Marriage and SexualityWhat is your relationship status?: MarriedAre you sexually active?: NoDo you use protection during sex?: NoHow many children do you have?: 5Home and EnvironmentAre there any guns present in your home?: NoAdvance DirectiveDo you have an advance directive?: NoDo you have a medical power of reverser?: No Social History Substance UseDo you or [...] technical, or vocational programAre you currently employed?: NoWTreatFeed is your employer?: I have [employer] and have been ?retired? for 5 years.Marriage and SexualityWhat is your relationship status?: MarriedAre you sexually active?: NoDo you use protection during sex?: NoHow many children do you have?: 5Home and EnvironmentAre there any guns present in your home?: NoAdvance DirectiveDo you have an advance directive?: NoDo you have a medical power of reverser?: No Social History Substance UseDo you or [...] technical, or vocational programAre you currently employed?: NoWTreatFeed is your employer?: I have [employer] and have been ?retired? for 5 years.Marriage and SexualityWhat is your relationship status?: MarriedAre you sexually active?: NoDo you use protection during sex?: NoHow many children do you have?: 5Home and EnvironmentAre there any guns present in your home?: NoAdvance DirectiveDo you have an advance directive?: NoDo you have a medical power of reverser?: No Social History Substance UseDo you or [...] technical, or vocational programAre you currently employed?: NoWTreatFeed is your employer?: I have [employer] and have been ?retired? for 5 years.Marriage and SexualityWhat is your relationship status?: MarriedAre you sexually active?: NoDo you use protection during sex?: NoHow many children do you have?: 5Home and EnvironmentAre there any guns present in your home?: NoAdvance DirectiveDo you have an advance directive?: NoDo you have a medical power of reverser?: No Social History Substance UseDo you or [...] employed?: NoWho is your employer?: I have [employer] and have been ?retired? for 5 years.Marriage and SexualityWhat is your relationship status?: MarriedAre you sexually active?: NoDo you use protection during sex?: NoHow many children do you have?: 5Home and EnvironmentAre there any guns present in your home?: NoAdvance DirectiveDo you have an advance directive?: NoDo you have a medical power of reverser?: No Problems Problem Type SNOMED Code ICD Code Onset Dates Problem Status W/U Status Risk Notes Problem Generalized anxiety disorder (67655806) Generalized anxiety disorder (F41.1) 4 Active confirmed Problem Insomnia disorder related to another mental disorder (88399415) 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 Active confirmed Problem 541705631 Essential tremor (G25.0) Active confirmed Problem 37934018 Attention and concentration deficit (R41.840) Active confirmed Problem 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 Problem RA (rheumatoid arthritis) (M06.9) 9 Active confirmed Vital Signs Heart Rate 100 /min 09/23/2024 Height-cm 167.64 cm 09/23/2024 Blood pressure diastolic 87 mm Hg 09/23/2024 Weight-kg 93.62 kg 09/23/2024 Height 66.00 in 09/23/2024 Blood pressure systolic 120 mm Hg 09/23/2024 Weight 206.4 lbs 09/23/2024 BMI 33.31 kg/m2 09/23/2024 Procedures Procedure Date Ordered Date Performed Result Body Sit e ADHD Testing 09/23/2024 N/A Cannabis Cognitive Testing 09/23/2024 N/A Encounters Encounter Location Date Provider Diagnosis [facility] [address] [facility] [address] [address] 10/09/2023 Chari Pappas [facility] [address] [facility] [address] [place] [address] 11/20/2023 Chari Pappas Generalized anxiety disorder F41.1 ; Insomnia due to other mental disorder F51.05 and Other chcf (current) drug therapy Z79.899 [facility] [address] [facility] [address] [place] [address] 11/21/2023 Jyoti New Generalized anxiety disorder F41.1 [facility] [address] [address] 12/05/2023 Jyoti New Generalized anxiety disorder F41.[address] [address] 01/30/2024 Chari Lewischuckydinah Generalized anxiety disorder F41.1 ; Insomnia due to other mental disorder F51.05 and Other terminal gauger (current) drug therapy Z79.[address] [facility] [address] [place] [address] 04/16/2024 Alix Hagtamiko Generalized anxiety disorder F41.1 ; Insomnia due to other mental disorder F51.05 ; 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 and Elevated BP without diagnosis of hypertension R03.[address] [address] 05/04/2024 Mario Diaz [address] [address] 06/15/2024 Alix Sanchez Generalized anxiety disorder F41.1 ; Insomnia due to other mental disorder F51.05 and 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 [address] 08/24/2024 Alix Laura Generalized anxiety disorder F41.1 ; Insomnia due to other mental disorder F51.05 ; 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 ; Essential tremor G25.0 ; Encounter for screening for cardiovascular disorders Z13.6 ; Dietary counseling and surveillance Z71.3 and Negative depression screening Z13.31 [place] [address] [address] 09/23/2024 Alix Sanchez Generalized anxiety disorder F41.1 ; Attention and concentration deficit R41.840 ; Insomnia due to other mental disorder F51.05 ; Essential tremor G25.0 ; 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 ; Encounter for screening for depression Z13.31 ; Encounter for screening for cardiovascular disorders Z13.6 and Negative depression screening Z13.31 [place] [address] [facility] [address] [place] [address] 10/14/2023 Natty Rogers [facility], [facility] [address] [facility] [address] [place] [address] 10/15/2023 Chari [facility] [place] [address] [facility] [address] [place] [address] 11/18/2023 Chari [facility] [facility], [facility] [address] [facility] [address] [place] [address] 11/19/2023 Interactive Project [facility], [place] [address] [facility] [address] [place] [address] 01/21/2024 Natty Rogers Generalized anxiety disorder F41.1 [place] [address] [facility] [address] [place] [address] 05/04/2024 Mario Diaz [facility], [place] [address] [address] 11/18/2023 [employer] [place] [address] [facility] [address] [place] [address] 11/18/2023 Chari [facility] [facility], [place] [address] [address] 11/18/[facility] [place] [address] [address] 04/02/2024 [place] [address] [address] 08/12/2024 Alix Sanchez Assessments Encounter Date Diagnosis [...] goal to minimize bzo, r/b/se, worsening sx, tolerating/depende nce, also higher risk respiratory depression when concurrent opiates, and likely further increased with her reports of aspiration/pneumon ia, etc. Would recommend decrease in general, but also office policy is not to prescribe BZO with opiate or controlled substances with cannabis. Would generally not take over script, but since her provider can assume, with intent to taper. Will not continue indefinitely with opiate/cannabis and prefer to avoid regardless. She is willing to try taper. has been given [place] bzo risks handout 11/20/2023 Insomnia due to other mental disorder (ICD-10 - F51.05) r/t anxiety cont trazodone 100mg qhs practice good sleep hygiene 11/21/2023 Generalized anxiety disorder (ICD-10 - F41.1) [...] rheumatoid arthritis Spiritual Beliefs: a mishmash between Catholic, Catholicism.I don't know. 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 - [...] goal to minimize bzo, r/b/se, worsening sx, tolerating/depende nce, also higher risk respiratory depression when concurrent opiates, and likely further increased with her reports of aspiration/pneumon ia, etc. Would recommend decrease in general, but [...] up 2 months, sooner if concerns arise 09/23/2024 Generalized anxiety disorder (ICD-10 - F41.1) 09/23/2024 Attention and concentration deficit (ICD-10 - R41.840) 09/23/2024 Insomnia due to other mental disorder (ICD-10 - F51.05) 06/15/2024 Insomnia due to other mental disorder [...] qhs practice good sleep hygiene 11/20/2023 Other terminal gauger (current) drug therapy (ICD-10 - Z79.899) UDS consistent with pain management/op iate, cannabis and alprazolam 01/30/2024 Other terminal gauger (current) drug therapy (ICD-10 - Z79.899) 04/16/2024 [...] up 2 months, sooner if concerns arise 09/23/2024 Essential tremor (ICD-10 - G25.0) 09/23/2024 EDS (Meredith-Danlos syndrome) (ICD-10 - Q79.60) 08/24/2024 Encounter for screening for cardiovascular disorders (ICD-10 - Z13.6) 08/24/2024 Dietary counseling and surveillance (ICD-10 - Z71.3) 09/23/2024 Encounter for screening for depression (ICD-10 - Z13.31) 09/23/2024 Encounter for screening for cardiovascular disorders (ICD-10 - Z13.6) 08/24/2024 Negative depression screening (ICD-10 - Z13.31) 09/23/2024 Negative depression screening (ICD-10 - Z13.31) 08/24/2024 [...] Continue current dose of trazodone for sleep 09/23/2024 Other Julian Sauer, female, with history of Meredith-Danlos syndrome, presenting with recent gastrointestinal issues, chronic anxiety, and concerns about possible ADHD. Anxiety Assessment: Patient reports ongoing struggles with anxiety but notes no recent panic attacks. Currently managed with Xanax (alprazolam) 1.5mg daily, divided into three doses. Patient has been unable to minimize use as previously recommended. Given the concurrent use of pain medications and cannabis, taper needs to continue. Plan: - Decrease Xanax (alprazolam) dosage to 0.5 mg, 1 tablet twice a day, 0.5 tablet as needed - Discussed risks of long-term benzodiazepine use, including dependence, tolerance, and potential cognitive issues - Continue duloxetine 90 mg PO daily - Continue propranolol 10 mg PO TID - Continue bupropion XL 300 mg PO daily Possible Attention Deficit Hyperactivity Disorder (ADHD) Assessment: Patient reports strong family history of ADHD, including mother, brother, and two children. No previous formal evaluation for ADHD. Discussed how current attention and focus concerns may be related to chronic benzodiazepine and cannabis use, as well as potential neurological manifestations of Meredith-Danlos syndrome. Given the family history and patient's concerns predating these factors, further evaluation is desired. Plan: - Schedule ADHD testing - Follow-up appointment after testing to discuss results and potential management strategies - Stimulant medications won't be an option due to cannabis use Sleep Disturbances Assessment: Patient reports variable sleep quality, with difficulty sleeping when experiencing pain. Compensates with daytime naps as needed. Plan: - Continue trazodone for sleep Plan Of Treatment Pending Test Test Name Order Date ADHD Testing 09/23/2024 Cannabis Cognitive Testing 09/23/2024 Next Appt Details Provider Name:Jared Jensen , 09/28/2024 02:00:00 PM, [address], [place], [address], Provider Name:Alix Edward benton, 10/07/2024 09:15:00 AM, [address], [place], [address], Insurance Providers Payer Name Payer Address Payer Phone Subscriber Number Group Number Insured Name Patient Relationship to Insured Coverage Start Date Coverage End Date [employer] [address] [place] [address] [id number] JULIAN SAUER Self - patient is the [...] Surgery Date(Month/Year) Sinus surgery Tonsilectomy/adenoids 04/22/1980 Hysterectomy (51263) 03/01/2023 oopherectomy 12/2023
--- OUTSIDE RECORDS SUMMARY | 2024-09-28 06:28 | XMS_ITS | Continuity of Care Document ---
Author Organization [facility] Address [address] [place] [address] Phone Care Team Providers Care Rooming House Keeper Name Role Phone Amadeo Arias MD Unavailable [...] Copied on Encounter OFFICE/OUTPAT IENT VISIT EST [facility], [address] [address], [place], [address], tel:[phone] [facility] [place] Patellofemoral instability, rightOther specified sprain of right wrist, initial encounter [address]. [address], [place], [place], [address] . tel: [phone] [facility], [address], [place], [address], [place] tel:[phone] [facility] Acute bilateral low back pain without sciaticaLeft hip painArthralgia of right hipPatellofemo ral instability, leftPatellofem oral instability, right 6 Hugo Childs. [address], [place], [place], [address] . tel: [phone] OFFICE CONSULTATION [facility], [address] [address], [place], [address], tel:[phone] [facility] [place] Patellofemoral instability, rightPatellofe moral instability, leftArthralgia of right hipLeft hip painAcute bilateral low back pain without sciatica [address]. [address], [place], [place], [address] . tel: [phone] Referring Provider: Michelle De La Torre[address], [place], [address] . tel:[phone] Family History Family Member Type Diagnosis Age At Onset Sister Problem (finding) Alive and well Payers Payer name Insurance type Covered constitution party ID Authoriza tion(s) [facility] Choice/Choice Plus [id number] Social History Type Description Quantity Date Captured [...]
--- OUTSIDE RECORDS SUMMARY | 2024-09-28 06:28 | XMS_ITS | Patient Health Record ---
Author Organization [facility] Address [address] [place] [address] Care Team Providers Care Pipe Fitter Supervisor Name Role Phone NADINE RUSH Unavailable [phone] Allergies No Known Allergies Reason For Referral Reason EVAL AND TREAT Diagnosis 1 Chronic pain syndrom e (G89.4) Referral Organization [facility] Referring Provider First Name TERESA Referring Provider Last Name KARL Referring Provider Speciality Physician Continuous Mining Machine Coal Miner Referred Provider Specialty Pain Medicin e Referral Priority Routine Referral Appointment Date 02/25/2024 Social History Tobacco Use: Social History Observation Description Date Details (start date - stop date) Former Smoker NA - NA Tobacco Control (Standard) Question Answer Notes Tobacco use: Former smoker Problems Problem Type SNOMED Code ICD Code Onset Dates Problem Status W/U Status Risk Notes Problem 977495307 Chronic pain syndrome (G89.4) Active confirmed Vital Signs Height 66 in 02/25/2024 Patient Reported Normal Blood Pressure Patient Reported Normal Temperature Weight 200 lbs 02/25/2024 Patient Reported Normal Blood Pressure Patient Reported Normal Temperature BMI 32.28 kg/m2 02/25/2024 Patient Reported Normal Blood Pressure Patient Reported Normal Temperature Encounters Encounter Location Date Provider Diagnosis [facility] [address] [place] [address] 02/25/2024 NADINE RUSH Chronic pain syndrom e [...] Insured Coverage Start Date Coverage End Date [facility] [address] [place] [address] [id number] Madalyn Smith Self - patient is the insured Medical (General) History Medical History History ICD Code Meredith Camilla 05/23/1990 Obesity
--- OUTSIDE RECORDS SUMMARY | 2024-09-28 06:28 | XMS_ITS | Clinical Summary ---
Author Organization [facility] [employer] Address [address] [place] [address] Care Team Providers Care Room Service Clerk Name Role Phone Jonathan Hartman RN Unavailable [phone] Feliciano Dash MD Primary Care Provider [phone] Source Comments [facility],non-owned Affiliates and Associated Physician Practices is amultiple site organization consisting of ambulatory clinics and hospital sitesin [place], [place], [place] and [place]. This disclosure is being madepursuant to the Care Everywhere program and may not contain all information available regarding this patient. Last updated 18.[facility] Allergies Active Allergy Reactions Criticality Noted Date Comments Ibuprofen Other Medium 11/18/2015 Stomach ulcers Medications * Be aware that medications may not be up to date on this document. Alwaysverify current medications with the patient. DULoxetine (CYMBALTA) [...] transdermal route every 24 hours. Obtains from [facility] in [place]. 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 Obtains from [facility] in [place]. 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 Gender Identity Female 01/29/2017 1:09 PM CDT [...] 7:54 PM CDT Height 162.6 cm (5' 4) 01/29/2017 7:54 PM CDT Body Mass Index [...] Armando Corona (Doctor), Myranda Keys, Enma Medina, Seal Skinner Patient Profile: 40F pmh 40F pmh depression, [...] are negative Procedure Code(s): --- Professional --- 25380, Colonoscopy, flexible; with biopsy, single or multiple --- Technical --- 19344, Colonoscopy, flexible; with biopsy, single or multiple Diagnosis Code(s): --- Professional --- R10.30, Lower abdominal pain, unspecified --- Technical --- R10.30, Lower abdominal pain, unspecified CPT copyright 2015 [employer]. All rights reserved. The codes documented in this report are preliminary and upon professor of communication and writing review may be revised to meet current compliance requirements. Armando Corona, 12/15/2015 12:47:51 PM This report has been signed electronically. Number of Addenda: 0 Note Initiated On: 12/15/2015 12:23 PM [facility] 12/15/2015 12:2 3 PM CDT Narrative Transcriptions Armando Corona MD - 12/15/2015 12:53 PM CDT Neg colon s/p random bx us Armando Corona MD GI PROCEDURE ORDERABLES Edited R esult - Final [facility] * (ABNORMAL) LIPID PROFILE (08/02/2015 10:02 AM CDT) Cholesterol 184 <200 mg/dL 08/02/2015 10:49 AM CDT [facility] Triglycerides 156(H) <150 mg/dL 08/02/2015 10:49 AM CDT [facility] HDL Cholesterol 43 >40 mg/dL 08/02/2015 10:49 AM CDT [facility] LDL Calculated 110 <130 mg/dL 08/02/2015 10:49 AM CDT [facility] VLDL Calculated 31(H) <=30 mg/dL 08/02/2015 10:49 AM CDT [facility] Chol HDL Ratio 4.3 <4.5 08/02/2015 10:49 AM CDT [facility] LDL/HDL Ratio 2.6 <5.0 08/02/2015 10:49 AM CDT [facility] Blood BLOOD SPECIMEN / Unknown Lab Venipuncture / Unknown 08/02/2015 10:02 AM CDT 08/02/2015 10:13 AM CDT us Chucho Hinton MD LAB - CHEMISTRY ORDERABLES Fi nal Result [facility] [address] [place] [address] from Last 3 Months or Most Recently Relevant to Health Maintenance Insurance [facility] SELF PAY NO INSURANCE Member Subscriber Plan / Payer (Ef fective for All Dates) Name:Julian Sauer Member ID:Not on file Relation to Subscriber:Not on file Name:JULIAN SAUER Subscriber ID:Not on file (Home) Address: [address] [place] [address] Payer ID:Not on file Group ID:Not on file Type:Self Pay Address: [place], [place] [facility] SELF PAY NO INSURANCE Member Subscriber Plan / Payer (Ef fective for All Dates) Name:Julian Sauer Member ID:Not on file Relation to Subscriber:Not on file Name:JULIAN SAUER Subscriber ID:Not on file Address: [address] [place] [address] Payer ID:Not on file Group ID:Not on file Type:Self Pay Address: [place], [place] [facility] SELF PAY NO INSURANCE Member Subscriber Plan / Payer (Ef fective for All Dates) Name:Julian Sauer Member ID:Not on file Relation to Subscriber:Not on file Name:JULIAN SAUER Subscriber ID:Not on file Address: [address] [place] [address] Payer ID:Not on file Group ID:Not on file Type:Self Pay Address: [place], [place] Advance Directives * Full Code (Latest Code Status on File) Date Activated Date Inactivated Comments 01/29/2017 7:53 PM 02/02/2017 1:02 PM * Full Code Date Activated Date Inactivated Comments 08/02/2015 1:57 AM 08/05/2015 3:00 PM * Full Code Date Activated Date Inactivated Comments 07/13/2015 10:36 PM 07/16/2015 3:55 PM Care Teams Room Service Clerk Relationship Specialty Start Date End Date Feliciano Dash MD [address] [facility] [address] [place] [address] PCP - General 07/14/21 Jonathan Hartman RN [employer] 07/14/15
--- OUTSIDE RECORDS SUMMARY | 2024-09-28 06:28 | XMS_ITS ---
Author Organization [facility] [employer] [facility] Address [address] [place] [address] [address] Care Team Providers Care College Dean Name Role Phone Jose Zhang DO Primary Care Provider UnavailAlix Sher Unavailable [phone] Jared Rowley Unavailable [phone] REASON FOR VISIT R/S Pt is throwing since this morning. Social History Sex Assigned At : Social History Observation Description Sex Assigned At Female Encounters Encounter Location Date Provider Diagnosis [facility] [employer] [address] [address] 09/25/2024 Jared Rowley Plan Of Treatment Next Appt Details Provider Name:Jared Rowley , 09/28/2024 02:00:00 PM, [address] [place] [address], [phone], Provider Name:Alix benton, 10/07/2024 09:15:00 AM, [address] [place] [address], [phone], Progress Notes * JULIAN SAUERDOB:1975 ( 49 yo F)Acc No.[id number]:09/25/2024 Patient: Armando JULIAN GONZALEZ Provider: Armando ROWLEY MD :1975 A ge:49 Y S ex:Female Date:09/25/2024 Address:[address] [facility] Pcp:Jose Zhang DO Subjective: * Chief Complaints: * 1 . R/S Pt is throwing since this morning.. 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 Onset Date:09/11/2023Modified On:11/20/2023 Status:confirmed M06.9 RA (rheumatoid arthr itis) Onset Date:12/27/2018Modified On:08/24/2024 Status:confirmed G25.0 Essential tremor Modified On:08/24/2024 Status:confirmed R41.840 Attention and concen tration deficit Modified On:09/23/2024 Status:confirmed * Medical History: Objective: * Vitals: Assessment: Plan: * Treatment: * Billing Information: * Visit Code: * Procedure Codes: * Electronic signature of Jan Rowley MD on 09/28/2024 at 06:28 AM CDT Sign off status: Pending * Provider: Armando ROWLEY MD Date: 09/25/2024 Generated for Tree regalado/Caryl/eTvidhismitting on: 09/28/2024 06:28 AM CDT
--- OUTSIDE RECORDS SUMMARY | 2024-09-28 06:29 | XMS_ITS | Clinical Summary ---
Author Organization [place] [id number] Address [address] [place] [address] Phone Care Team Providers Care Lift Supervisor Name Role Phone Kumar CARRILLO MD, John J. Unavailable [phone] Bhupinder Tobias MD Primary Care Provider [phone] Jorge Aguiar MD Unavailable [phone] Khoa Arias MD Unavailable Allergies No known [...] (08/30/2021): Added automatically from request for surgery [id number] Abdominal pain 03/31/2021 Assessment & Plan (06/28/2021 10:08 AM ROOF TILER): Recently dx with mild pancreatitis. Needs lipase/amylase rechecked. Still has some upper abd pain. Advised pt to f/u with GI also. Assessment & Plan (06/19/2021 8:52 AM ROOF TILER): Had abd pain early this month, check amyl/lip and ua. Pain has resolved. Assessment & Plan (05/05/2021 10:13 PM ROOF TILER): Having abd pain, bloating, constipation. On meds for IBS and also using suppositories to have BM. Incidental findings of mesenteric fat stranding (adenitis or panniculitis) on abd CT. Awaiting further eval by Dr. Arias. Assessment & Plan (03/31/2021 8:44 AM ROOF TILER): Elevated lipase. Imuran stopped. Pt advised to [...] 04/23/2019 Assessment & Plan (03/24/2020 7:29 AM ROOF TILER): Normal serum immunoglobulins. Assessment & Plan (01/21/2020 [...] immunoglobulins. Assessment & Plan (04/23/2019 1:46 PM ROOF TILER): Check serum immunoglobulins. Osteoporosis without current pathological fractu re 09/18/2018 Assessment & Plan (08/10/2021 8:09 AM CDT): bds checked by pcp in past, is taking ca and vit d and pcp checked vit D and PTH per pt was wnl. Her pcp started her on alendronate 70mg po qweek. Taking ca + vit d 1200mg qd. Assessment & Plan (06/15/2021 10:46 AM ROOF TILER): bds checked by pcp in past, is taking ca and vit d and pcp checked vit D and PTH per pt was wnl. Her pcp started her on alendronate 70mg po qweek. Taking ca + vit d 1200mg qd. Assessment & Plan (06/09/2021 8:30 AM ROOF TILER): bds checked by pcp in past, is taking ca and vit d and pcp checked vit D and PTH per pt was wnl. Her pcp started her on alendronate 70mg po qweek. Taking ca + vit d 1200mg qd. Assessment & Plan (05/04/2021 8:19 AM ROOF TILER): bds checked by pcp in past, is [...] qd. Assessment & Plan (06/03/2020 7:38 AM ROOF TILER): bds checked by pcp in past, is taking ca and vit d and pcp checked vit D and PTH per pt was wnl. Her pcp started her on alendronate 70mg po qweek. Taking ca + vit d 1200mg qd. Assessment & Plan (03/25/2020 8:34 AM ROOF TILER): bds checked by pcp in past, is taking ca and vit d and pcp checked vit D and PTH per pt was wnl. Her pcp started her on alendronate 70mg po qweek. Taking ca + vit d 1200mg qd. Assessment & Plan (03/24/2020 7:29 AM ROOF TILER): bds checked by pcp in past, is [...] qd. Assessment & Plan (04/20/2019 4:56 PM ROOF TILER): bds checked by pcp in past, is [...] pcp. Assessment & Plan (06/03/2020 7:37 AM ROOF TILER): Was advised in past to get chest CT to r/o aortic aneurysm, to discuss with pcp. Assessment & Plan (03/25/2020 8:33 AM ROOF TILER): Was advised in past to get chest CT to r/o aortic aneurysm, to discuss with pcp. Assessment & Plan (03/24/2020 7:29 AM ROOF TILER): Was advised in past to get chest [...] pcp. Assessment & Plan (04/20/2019 4:57 PM ROOF TILER): Advised to get chest CT to r/o aortic aneurysm, to discuss with pcp. Assessment & Plan (10/31/2018 7:38 AM CDT): Advised to get chest CT to r/o aortic aneurysm, to discuss with pcp. Encounter for long-term (current) use of medicat ions 01/31/2017 Assessment & Plan (05/28/2022 8:07 AM ROOF TILER): Quant gold neg 12/2019 Hep B and [...] showed osteoporosis [facility] 08/2019---[facility] labs reveal positive anti-COTTONSEED MEAT PRESSER antibody which is likely a false positive due to negative ASHLEY. Her father had psoriasis, pt changed from ra to PsA on 03/25/2020. Assessment & Plan (02/26/2022 8:16 AM ROOF TILER): Quant gold neg 12/2019 Hep B and [...] showed osteoporosis [facility] 08/2019---[facility] labs reveal positive anti-COTTONSEED MEAT PRESSER antibody which is likely a false positive [...] showed osteoporosis [facility] 08/2019---[facility] labs reveal positive anti-COTTONSEED MEAT PRESSER antibody which is likely a false positive [...] showed osteoporosis [facility] 08/2019---[facility] labs reveal positive anti-COTTONSEED MEAT PRESSER antibody which is likely a false positive [...] showed osteoporosis [facility] 08/2019---[facility] labs reveal positive anti-COTTONSEED MEAT PRESSER antibody which is likely a false positive [...] showed osteoporosis [facility] 08/2019---[facility] labs reveal positive anti-COTTONSEED MEAT PRESSER antibody which is likely a false positive due to negative ASHLEY. Her father had psoriasis, pt changed from ra to PsA on 03/25/2020. Assessment & Plan (06/28/2021 8:44 AM ROOF TILER): Quant gold neg 12/2019 Hep B and [...] showed osteoporosis [facility] 08/2019---[facility] labs reveal positive anti-COTTONSEED MEAT PRESSER antibody which is likely a false positive due to negative ASHLEY. Her father had psoriasis, pt changed from ra to PsA on 03/25/2020. Assessment & Plan (06/15/2021 10:44 AM ROOF TILER): Quant gold neg 12/2019 Hep B and [...] showed osteoporosis [facility] 08/2019---[facility] labs reveal positive anti-COTTONSEED MEAT PRESSER antibody which is likely a false positive due to negative ASHLEY. Her father had psoriasis, pt changed from ra to PsA on 03/25/2020. Assessment & Plan (06/09/2021 10:15 AM ROOF TILER): Quant gold neg 12/2019 Hep B and [...] showed osteoporosis [facility] 08/2019---[facility] labs reveal positive anti-COTTONSEED MEAT PRESSER antibody which is likely a false positive due to negative ASHLEY. Her father had psoriasis, pt changed from ra to PsA on 03/25/2020. Assessment & Plan (06/09/2021 8:29 AM ROOF TILER): Quant gold neg 12/2019 Hep B and [...] showed osteoporosis [facility] 08/2019---[facility] labs reveal positive anti-COTTONSEED MEAT PRESSER antibody which is likely a false positive due to negative ASHLEY. Her father had psoriasis, pt changed from ra to PsA on 03/25/2020. Assessment & Plan (05/04/2021 8:19 AM ROOF TILER): Quant gold neg 12/2019 Hep B and [...] showed osteoporosis [facility] 08/2019---[facility] labs reveal positive anti-COTTONSEED MEAT PRESSER antibody which is likely a false positive due to negative ASHLEY. Her father had psoriasis, pt changed from ra to PsA on 03/25/2020. Assessment & Plan (03/31/2021 9:20 AM ROOF TILER): Quant gold neg 12/2019 Hep B and [...] showed osteoporosis [facility] 08/2019---[facility] labs reveal positive anti-COTTONSEED MEAT PRESSER antibody which is likely a false positive [...] showed osteoporosis [facility] 08/2019---[facility] labs reveal positive anti-COTTONSEED MEAT PRESSER antibody which is likely a false positive [...] showed osteoporosis [facility] 08/2019---[facility] labs reveal positive anti-COTTONSEED MEAT PRESSER antibody which is likely a false positive [...] showed osteoporosis [facility] 08/2019---[facility] labs reveal positive anti-COTTONSEED MEAT PRESSER antibody which is likely a false positive [...] showed osteoporosis [facility] 08/2019---[facility] labs reveal positive anti-COTTONSEED MEAT PRESSER antibody which is likely a false positive due to negative ASHLEY. Her father had psoriasis, pt changed from ra to PsA on 03/25/2020. Assessment & Plan (06/03/2020 2:56 PM ROOF TILER): Quant gold neg 12/2019 Hep B and [...] showed osteoporosis [facility] 08/2019---[facility] labs reveal positive anti-COTTONSEED MEAT PRESSER antibody which is likely a false positive due to negative ASHLEY. Her father had psoriasis, pt changed from ra to PsA on 03/25/2020. Assessment & Plan (03/25/2020 3:03 PM ROOF TILER): Quant gold neg 12/2019 HLA B27 negative [...] showed osteoporosis [facility] 08/2019---[facility] labs reveal positive anti-COTTONSEED MEAT PRESSER antibody which is likely a false positive due to negative ASHLEY. Her father had psoriasis, pt changed from ra to PsA on 03/25/2020. Assessment & Plan (03/24/2020 7:28 AM ROOF TILER): Quant gold neg 12/2019 HLA B27 negative [...] showed osteoporosis [facility] 08/2019---[facility] labs reveal positive anti-COTTONSEED MEAT PRESSER antibody which is likely a false positive [...] showed osteoporosis [facility] 08/2019---[facility] labs reveal positive anti-COTTONSEED MEAT PRESSER antibody which is likely a false positive [...] showed osteoporosis [facility] 08/2019---[facility] labs reveal positive anti-COTTONSEED MEAT PRESSER antibody which is likely a false positive [...] showed osteoporosis [facility] 08/2019---[facility] labs reveal positive anti-COTTONSEED MEAT PRESSER antibody which is likely a false positive [...] showed osteoporosis [facility] 08/2019---[facility] labs reveal positive anti-COTTONSEED MEAT PRESSER antibody which is likely a false positive [...] showed osteoporosis [facility] 08/2019---[facility] labs reveal positive anti-COTTONSEED MEAT PRESSER antibody which is likely a false positive [...] osteoporosis Assessment & Plan (04/20/2019 4:59 PM ROOF TILER): Quant gold neg 10/2018. TPMT nl 17 [...] 01/31/2017 Assessment & Plan (05/28/2022 8:05 AM ROOF TILER): Images from the original note were not included. Had orencia infusion 05/02/2022. Continue orencia monotherapy. Off arava due to lipase elevation. Seeing gi at [facility] now. Colona and egd utd and nl in past year per pt. Had a nl pancreatic US recently with gi. Past serologies: [facility] panel 08/2019---labs reveal positive anti-COTTONSEED MEAT PRESSER antibody which is likely a false positive due to negative ASHLEY. RF neg but has a possible family hx of psoriatic arthritis (father) so if she develops psoriasis diagnosis will change to psoriatic arthritis. Rt hand US 09/2019 showed: F/u 1 month. Assessment & Plan (02/26/2022 12:12 PM ROOF TILER): Images from the original note were not included. High cdai. Her orencia is scheduled tomorrow. Continue orencia monotherapy. Off arava due to lipase elevation. Seeing gi at [facility] now. Colona and egd utd and nl in past year per pt. Had a nl pancreatic US recently with gi. She could be flaring up since her orencia is due tomorrow, overall she still feels that it is helping her joints. Past serologies: [facility] panel 08/2019---labs reveal positive anti-COTTONSEED MEAT PRESSER antibody which is likely a false positive [...] no complications or infections. Seeing gi at [facility] now for her elevated lipase. Colona and egd utd and nl in past year per pt. If labs stable will restart low dose arava 10mg po every day. To stay off orencia until recovered from rt knee surgery. Past serologies: [facility] panel 08/2019---labs reveal positive anti-COTTONSEED MEAT PRESSER antibody which is likely a false positive [...] orencia is scheduled tomorrow. Seeing gi at [facility] now. Colona and egd utd and nl in past year per pt. Due to burden of dz will give her a short course of oral prednisone. Discussed risks and se of systemic steroids. Past serologies: [facility] panel 08/2019---labs reveal positive anti-COTTONSEED MEAT PRESSER antibody which is likely a false positive [...] orencia is scheduled tomorrow. Seeing gi at [facility] now. Colona and egd utd and nl in past year per pt. Due to burden of dz will give her a short course of oral prednisone. Discussed risks and se of systemic steroids. Past serologies: [facility] panel 08/2019---labs reveal positive anti-COTTONSEED MEAT PRESSER antibody which is likely a false positive [...] gi dr arias for her pancreatitis . Colona and egd utd and nl in past year per pt. Seen with dr woodruff today. Past serologies: [facility] panel 08/2019---labs reveal positive anti-COTTONSEED MEAT PRESSER antibody which is likely a false positive due to negative ASHLEY. RF neg but has a possible family hx of psoriatic arthritis (father) so if she develops psoriasis diagnosis will change to psoriatic arthritis. Rt hand US 09/2019 showed: F/u 1 month. Assessment & Plan (06/28/2021 10:22 AM ROOF TILER): Images from the original note were not [...] Past serologies: [facility] panel 08/2019---labs reveal positive anti-COTTONSEED MEAT PRESSER antibody which is likely a false positive due to negative ASHLEY. RF neg but has a possible family hx of psoriatic arthritis (father) so if she develops psoriasis diagnosis will change to psoriatic arthritis. Rt hand US 09/2019 showed: F/u 1 month. Assessment & Plan (06/15/2021 10:46 AM ROOF TILER): Images from the original note were not [...] Past serologies: [facility] panel 08/2019---labs reveal positive anti-COTTONSEED MEAT PRESSER antibody which is likely a false positive due to negative ASHLEY. RF neg but has a possible family hx of psoriatic arthritis (father) so if she develops psoriasis diagnosis will change to psoriatic arthritis. Rt hand US 09/2019 showed: F/u 1 month. Assessment & Plan (06/09/2021 10:16 AM ROOF TILER): Images from the original note were not [...] Past serologies: [facility] panel 08/2019---labs reveal positive anti-COTTONSEED MEAT PRESSER antibody which is likely a false positive due to negative ASHLEY. RF neg but has a possible family hx of psoriatic arthritis (father) so if she develops psoriasis diagnosis will change to psoriatic arthritis. Rt hand US 09/2019 showed: F/u 1 month. Assessment & Plan (06/09/2021 8:29 AM ROOF TILER): Images from the original note were not [...] Past serologies: [facility] panel 08/2019---labs reveal positive anti-COTTONSEED MEAT PRESSER antibody which is likely a false positive due to negative ASHLEY. RF neg but has a possible family hx of psoriatic arthritis (father) so if she develops psoriasis diagnosis will change to psoriatic arthritis. Rt hand US 09/2019 showed: F/u 1 month. Assessment & Plan (05/05/2021 10:11 PM ROOF TILER): Images from the original note were not [...] Past serologies: [facility] panel 08/2019---labs reveal positive anti-COTTONSEED MEAT PRESSER antibody which is likely a false positive due to negative ASHLEY. RF neg but has a possible family hx of psoriatic arthritis (father) so if she develops psoriasis diagnosis will change to psoriatic arthritis. Rt hand US 09/2019 showed: F/u 1 month. Assessment & Plan (03/31/2021 9:24 AM ROOF TILER): Images from the original note were not [...] Past serologies: [facility] panel 08/2019---labs reveal positive anti-COTTONSEED MEAT PRESSER antibody which is likely a false positive [...] Past serologies: [facility] panel 08/2019---labs reveal positive anti-COTTONSEED MEAT PRESSER antibody which is likely a false positive [...] Past serologies: [facility] panel 08/2019---labs reveal positive anti-COTTONSEED MEAT PRESSER antibody which is likely a false positive [...] Past serologies: [facility] panel 08/2019---labs reveal positive anti-COTTONSEED MEAT PRESSER antibody which is likely a false positive due to negative ASHLEY. RF neg but has a possible family hx of psoriatic arthritis (father) so if she develops psoriasis diagnosis will change to psoriatic arthritis. Rt [facility] 09/2019 showed: Assessment & Plan (07/18/2020 8:24 AM CDT): Images from the original note were not included. High cdai. On imuran to 100mg bid and Stelara. Discussed potential se and risks of stelara tx. To see her gi for her diarrhea, she is due for colonoscopy. Continue imuran. To get covid 19 vaccine when available. Past serologies: [facility] panel 08/2019---labs reveal positive anti-COTTONSEED MEAT PRESSER antibody which is likely a false positive due to negative ASHLEY. RF neg but has a possible family hx of psoriatic arthritis (father) so if she develops psoriasis diagnosis will change to psoriatic arthritis. Rt [facility] 09/2019 showed: Assessment & Plan (06/03/2020 5:27 PM ROOF TILER): Images from the original note were not [...] Past serologies: [facility] panel 08/2019---labs reveal positive anti-COTTONSEED MEAT PRESSER antibody which is likely a false positive due to negative ASHLEY. RF neg but has a possible family hx of psoriatic arthritis (father) so if she develops psoriasis diagnosis will change to psoriatic arthritis. Rt [facility] 09/2019 showed: Assessment & Plan (03/25/2020 3:01 PM ROOF TILER): Images from the original note were not [...] Past serologies: [facility] panel 08/2019---labs reveal positive anti-COTTONSEED MEAT PRESSER antibody which is likely a false positive due to negative ASHLEY. RF neg but has a possible family hx of psoriatic arthritis (father) so if she develops psoriasis diagnosis will change to psoriatic arthritis. Rt [facility] 09/2019 showed: Assessment & Plan (03/24/2020 7:29 AM ROOF TILER): Images from the original note were not included. Bernardino zapien Wants to go back to sq orencia, gave pt 1 mo of samples and will start approval. Can't come in for iv orencia, her dad is on hospice. Increase imuran to 100mg bid, check cbc/cmp in 2 weeks and f/u in 1month. Past serologies: [facility] panel 08/2019---labs reveal positive anti-COTTONSEED MEAT PRESSER antibody which is likely a false positive due to negative ASHLEY. RF neg but has a possible family hx of psoriatic arthritis (father) so if she develops psoriasis diagnosis will change to psoriatic arthritis. Rt [facility] 09/2019 showed: Assessment & Plan (02/19/2020 11:34 AM CDT): Bernardino zapien Wants to go back to sq orencia, gave pt 1 mo of samples and will start approval. Can't come in for iv orencia, her dad is on hospice. Increase imuran to 100mg bid, check cbc/cmp in 2 weeks and f/u in 1month. Past serologies: [facility] panel 08/2019---labs reveal positive anti-COTTONSEED MEAT PRESSER antibody which is likely a false positive due to negative ASHLEY. RF neg but has a possible family hx of psoriatic arthritis (father) so if she develops psoriasis diagnosis will change to psoriatic arthritis. Rt [facility] 09/2019 showed: Assessment & Plan (01/22/2020 [...] Past serologies: [facility] panel 08/2019---labs reveal positive anti-COTTONSEED MEAT PRESSER antibody which is likely a false positive [...] every day. [facility] panel 08/2019---labs reveal positive anti-COTTONSEED MEAT PRESSER antibody which is likely a false positive due to negative ASHLEY. Otherwise labs look good. No evidence of a new autoimmune connective tissue disease. Cont orencia sq and imuran 100mg po qhs. [place] better on iv orencia, will change from [...] since resolved. [facility] panel 08/2019---labs reveal positive anti-COTTONSEED MEAT PRESSER antibody which is likely a false positive [...] of orencia. [facility] panel 08/2019---labs reveal positive anti-COTTONSEED MEAT PRESSER antibody which is likely a false positive [...] of orencia. [facility] panel 08/2019---labs reveal positive anti-COTTONSEED MEAT PRESSER antibody which is likely a false positive [...] wnl. Assessment & Plan (04/23/2019 1:46 PM ROOF TILER): High cdai. On orencia IV but has [...] citrate. Assessment & Plan (06/03/2020 2:56 PM ROOF TILER): Multiple kidney stones for over 10 yrs, [...] on file Legal Sex Female 9:24 PM ROOF TILER Gender Identity Female 08/14/2022 11:32 AM CDT [...] 7:28 AM CDT Height 167.6 cm (5' 6) 07/03/2023 7:28 AM CDT Body Mass Index [...] HEPATITIS C AB Routine 06/29/2015 2:43 PM ROOF TILER from Last 3 Months or Most Recently Relevant to Health Maintenance Results * ThinPrep Pap with HPV (12/24/2018 3:41 PM CDT) 12/24/2018 3:41 PM CDT 12/25/2018 8:54 AM CDT Narrative [facility] - 12/26/2018 2:53 PM CDT [facility] Department of Pathology [address] [place] [id number] Final Report with Addendum Patient Name: JULIAN SAUER Address: [address] [place] [address] Gender: F : 1975 (Age: 43) Service: Laboratory Location: Lab [facility] #: [id number] Patient Type: Ref Lab Taken: 12/24/2018 Received: 12/25/2018 Accessioned:: 12/26/2018 Reported: 12/26/2018 Physician(s): Curtis Oseguera M.D. [facility] Diagnosis: Source of Specimen: SCREENING IMAGED PAP [...] the Surgical Pathology Department at [facility] as part of an ongoing quality control director program and in compliance with federally mandated [...] determined by the Surgical Pathology Department [facility]. It has not been cleared or approved by the U. S. Food and Drug Administration. Curtis Oseguera MD LAB CYTOLOGY ORDERABLES Final Result Performing Organization Address [facility]/ZIP Co de Phone Number [address] [phone] * Serum Hepatitis C ab (06/29/2015 2:43 PM ROOF TILER) HCV ab Non-Reacti ve Non-Reacti ve HISTORICAL RESULTS Serum 06/29/2015 2:43 PM ROOF TILER Miriam VALLE LAB BLOOD ORDERAB LES Final Result Performing Organization Address [facility] Co de Phone Number HISTORICAL RESULTS from Last 3 Months or Most Recently Relevant to Health Maintenance Insurance [facility] WeFi NE WeFi NE WeFi NE Care Teams Lift Supervisor Relationship Specialty Start Date End Date Bhupinder Tobias MD [address] [place] [address] PCP - General Internal Medicine 06/03/20 Cash Woodruff III, MD [address] [place] [address] Rheumatology 04/12/17 Jorge Aguiar MD [address] [place] [address] Consulting Physician Urology 11/10/20 Khoa Arias MD [address] [place] [address] Referring Physician Gastroenterology 03/20/21
--- OUTSIDE RECORDS SUMMARY | 2024-09-28 06:29 | XMS_ITS | Referral Summary ---
Author Organization [id number] Address [address] [place] [address] Phone Care Team Providers Care Tool Polishing Machine Operator Name Role Phone Kumar CARRILLO MD, John J. Unavailable [phone] Bhupinder Tobias MD Primary Care Provider [phone] Jorge Aguiar MD Unavailable [phone] Khoa Arias MD Unavailable [phone] Allergies No known active allergies Medications SUMAtriptan [...] (08/30/2021): Added automatically from request for surgery [id number] Abdominal pain 03/31/2021 Assessment & Plan (06/28/2021 10:08 AM SCREEN VENT BINDER): Recently dx with mild pancreatitis. Needs lipase/amylase rechecked. Still has some upper abd pain. Advised pt to f/u with GI also. Assessment & Plan (06/19/2021 8:52 AM SCREEN VENT BINDER): Had abd pain early this month, check amyl/lip and ua. Pain has resolved. Assessment & Plan (05/05/2021 10:13 PM SCREEN VENT BINDER): Having abd pain, bloating, constipation. On meds for IBS and also using suppositories to have BM. Incidental findings of mesenteric fat stranding (adenitis or panniculitis) on abd CT. Awaiting further eval by Dr. Arias. Assessment & Plan (03/31/2021 8:44 AM SCREEN VENT BINDER): Elevated lipase. Imuran stopped. Pt advised to [...] 04/23/2019 Assessment & Plan (03/24/2020 7:29 AM SCREEN VENT BINDER): Normal serum immunoglobulins. Assessment & Plan (01/21/2020 [...] immunoglobulins. Assessment & Plan (04/23/2019 1:46 PM SCREEN VENT BINDER): Check serum immunoglobulins. Osteoporosis without current pathological fractu re 09/18/2018 Assessment & Plan (08/10/2021 8:09 AM CDT): bds checked by pcp in past, is taking ca and vit d and pcp checked vit D and PTH per pt was wnl. Her pcp started her on alendronate 70mg po qweek. Taking ca + vit d 1200mg qd. Assessment & Plan (06/15/2021 10:46 AM SCREEN VENT BINDER): bds checked by pcp in past, is taking ca and vit d and pcp checked vit D and PTH per pt was wnl. Her pcp started her on alendronate 70mg po qweek. Taking ca + vit d 1200mg qd. Assessment & Plan (06/09/2021 8:30 AM SCREEN VENT BINDER): bds checked by pcp in past, is taking ca and vit d and pcp checked vit D and PTH per pt was wnl. Her pcp started her on alendronate 70mg po qweek. Taking ca + vit d 1200mg qd. Assessment & Plan (05/04/2021 8:19 AM SCREEN VENT BINDER): bds checked by pcp in past, is [...] qd. Assessment & Plan (06/03/2020 7:38 AM SCREEN VENT BINDER): bds checked by pcp in past, is taking ca and vit d and pcp checked vit D and PTH per pt was wnl. Her pcp started her on alendronate 70mg po qweek. Taking ca + vit d 1200mg qd. Assessment & Plan (03/25/2020 8:34 AM SCREEN VENT BINDER): bds checked by pcp in past, is taking ca and vit d and pcp checked vit D and PTH per pt was wnl. Her pcp started her on alendronate 70mg po qweek. Taking ca + vit d 1200mg qd. Assessment & Plan (03/24/2020 7:29 AM SCREEN VENT BINDER): bds checked by pcp in past, is [...] qd. Assessment & Plan (04/20/2019 4:56 PM SCREEN VENT BINDER): bds checked by pcp in past, is [...] pcp. Assessment & Plan (06/03/2020 7:37 AM SCREEN VENT BINDER): Was advised in past to get chest CT to r/o aortic aneurysm, to discuss with pcp. Assessment & Plan (03/25/2020 8:33 AM SCREEN VENT BINDER): Was advised in past to get chest CT to r/o aortic aneurysm, to discuss with pcp. Assessment & Plan (03/24/2020 7:29 AM SCREEN VENT BINDER): Was advised in past to get chest [...] pcp. Assessment & Plan (04/20/2019 4:57 PM SCREEN VENT BINDER): Advised to get chest CT to r/o aortic aneurysm, to discuss with pcp. Assessment & Plan (10/31/2018 7:38 AM CDT): Advised to get chest CT to r/o aortic aneurysm, to discuss with pcp. Encounter for long-term (current) use of medicat ions 01/31/2017 Assessment & Plan (05/28/2022 8:07 AM SCREEN VENT BINDER): Quant gold neg 12/2019 Hep B and [...] showed osteoporosis [facility] 08/2019---[facility] labs reveal positive anti-SPANISH LECTURER antibody which is likely a false positive due to negative ASHLEY. Her father had psoriasis, pt changed from ra to PsA on 03/25/2020. Assessment & Plan (02/26/2022 8:16 AM SCREEN VENT BINDER): Quant gold neg 12/2019 Hep B and [...] showed osteoporosis [facility] 08/2019---[facility] reveal positive anti-SPANISH LECTURER antibody which is likely a false positive [...] showed osteoporosis [facility] 08/2019---[facility] reveal positive anti-SPANISH LECTURER antibody which is likely a false positive [...] showed osteoporosis [facility] 08/2019---[facility] reveal positive anti-SPANISH LECTURER antibody which is likely a false positive [...] showed osteoporosis [facility] 08/2019---[facility] reveal positive anti-SPANISH LECTURER antibody which is likely a false positive [...] showed osteoporosis [facility] 08/2019---[facility] reveal positive anti-SPANISH LECTURER antibody which is likely a false positive due to negative ASHLEY. Her father had psoriasis, pt changed from ra to PsA on 03/25/2020. Assessment & Plan (06/28/2021 8:44 AM SCREEN VENT BINDER): Quant gold neg 12/2019 Hep B and [...] showed osteoporosis [facility] 08/2019---[facility] reveal positive anti-SPANISH LECTURER antibody which is likely a false positive due to negative ASHLEY. Her father had psoriasis, pt changed from ra to PsA on 03/25/2020. Assessment & Plan (06/15/2021 10:44 AM SCREEN VENT BINDER): Quant gold neg 12/2019 Hep B and [...] showed osteoporosis [facility] 08/2019---[facility] reveal positive anti-SPANISH LECTURER antibody which is likely a false positive due to negative ASH[facility]. Her father had psoriasis, pt changed from ra to PsA on 03/25/2020. Assessment & Plan (06/09/2021 10:15 AM SCREEN VENT BINDER): Quant gold neg 12/2019 Hep B and [...] showed osteoporosis [facility] 08/2019---[facility] labs reveal positive anti-SPANISH LECTURER antibody which is likely a false positive due to negative [facility]. Her father had psoriasis, pt changed from ra to PsA on 03/25/2020. Assessment & Plan (06/09/2021 8:29 AM SCREEN VENT BINDER): Quant gold neg 12/2019 Hep B and [...] showed osteoporosis [facility] 08/2019---[facility] reveal positive anti-SPANISH LECTURER antibody which is likely a false positive due to negative ASHLEY. Her father had psoriasis, pt changed from ra to PsA on 03/25/2020. Assessment & Plan (05/04/2021 8:19 AM SCREEN VENT BINDER): Quant gold neg 12/2019 Hep B and [...] showed osteoporosis [facility] 08/2019---[facility] reveal positive anti-SPANISH LECTURER antibody which is likely a false positive due to negative ASHLEY. Her father had psoriasis, pt changed from ra to PsA on 03/25/2020. Assessment & Plan (03/31/2021 9:20 AM SCREEN VENT BINDER): Quant gold neg 12/2019 Hep B and [...] showed osteoporosis [facility] 08/2019---[facility] reveal positive anti-SPANISH LECTURER antibody which is likely a false positive [...] showed osteoporosis [facility] 08/2019---[facility] reveal positive anti-SPANISH LECTURER antibody which is likely a false positive [...] showed osteoporosis [facility] 08/2019---[facility] reveal positive anti-SPANISH LECTURER antibody which is likely a false positive [...] showed osteoporosis [facility] 08/2019---[facility] reveal positive anti-SPANISH LECTURER antibody which is likely a false positive [...] showed osteoporosis [facility] 08/2019---[facility] reveal positive anti-SPANISH LECTURER antibody which is likely a false positive due to negative [facility]SH[facility]. Her father had psoriasis, pt changed from ra to PsA on 03/25/2020. Assessment & Plan (06/03/2020 2:56 PM SCREEN VENT BINDER): Quant gold neg 12/2019 Hep B and [...] showed osteoporosis [facility] 08/2019---[facility] reveal positive anti-SPANISH LECTURER antibody which is likely a false positive due to negative ASHLEY. Her father had psoriasis, pt changed from ra to PsA on 03/25/2020. Assessment & Plan (03/25/2020 3:03 PM SCREEN VENT BINDER): Quant gold neg 12/2019 HLA B27 negative [...] showed osteoporosis [facility] 08/2019---[facility] reveal positive anti-SPANISH LECTURER antibody which is likely a false positive due to negative ASHLEY. Her father had psoriasis, pt changed from ra to PsA on 03/25/2020. Assessment & Plan (03/24/2020 7:28 AM SCREEN VENT BINDER): Quant gold neg 12/2019 HLA B27 negative [...] showed osteoporosis [facility] 08/2019---[facility] reveal positive anti-SPANISH LECTURER antibody which is likely a false positive [...] showed osteoporosis [facility] 08/2019---[facility] reveal positive anti-SPANISH LECTURER antibody which is likely a false positive [...] showed osteoporosis [facility] 08/2019---[facility] reveal positive anti-SPANISH LECTURER antibody which is likely a false positive [...] showed osteoporosis [facility] 08/2019---[facility] reveal positive anti-SPANISH LECTURER antibody which is likely a false positive [...] showed osteoporosis [facility] 08/2019---[facility] reveal positive anti-SPANISH LECTURER antibody which is likely a false positive [...] showed osteoporosis [facility] 08/2019---[facility] reveal positive anti-SPANISH LECTURER antibody which is likely a false positive [...] osteoporosis Assessment & Plan (04/20/2019 4:59 PM SCREEN VENT BINDER): Quant gold neg 10/2018. TPMT nl 17 [...] 01/31/2017 Assessment & Plan (05/28/2022 8:05 AM SCREEN VENT BINDER): Images from the original note were not included. Had orencia infusion 05/02/2022. Continue orencia monotherapy. Off arava due to lipase elevation. Seeing gi at [facility] now. [place] and egd utd and nl in past year per pt. Had a nl pancreatic US recently with gi. Past serologies: [facility] panel 08/2019---labs reveal positive anti-SPANISH LECTURER antibody which is likely a false positive due to negative [facility]. RF neg but has a possible family hx of psoriatic arthritis (father) so if she develops psoriasis diagnosis will change to psoriatic arthritis. Rt hand US 09/2019 showed: F/u 1 month. Assessment & Plan (02/26/2022 12:12 PM SCREEN VENT BINDER): Images from the original note were not included. High cdai. Her orencia is scheduled tomorrow. Continue orencia monotherapy. Off arava due to lipase elevation. Seeing gi at [facility] now. [place] and egd utd and nl in past year per pt. Had a nl pancreatic US recently with gi. She could be flaring up since her orencia is due tomorrow, overall she still feels that it is helping her joints. Past serologies: [facility] panel 08/2019---labs reveal positive anti-SPANISH LECTURER antibody which is likely a false positive [...] no complications or infections. Seeing gi at [facility] now for her elevated lipase. [place] and egd utd and nl in past year per pt. If labs stable will restart low dose arava 10mg po every day. To stay off orencia until recovered from rt knee surgery. Past serologies: [facility] panel 08/2019---labs reveal positive anti-SPANISH LECTURER antibody which is likely a false positive [...] orencia is scheduled tomorrow. Seeing gi at [facility] now. [place] and egd utd and nl in past year per pt. Due to burden of dz will give her a short course of oral prednisone. Discussed risks and se of systemic steroids. Past serologies: [facility] panel 08/2019---labs reveal positive anti-SPANISH LECTURER antibody which is likely a false positive [...] orencia is scheduled tomorrow. Seeing gi at [facility] now. [place] and egd utd and nl in past year per pt. Due to burden of dz will give her a short course of oral prednisone. Discussed risks and se of systemic steroids. Past serologies: [facility] panel 08/2019---labs reveal positive anti-SPANISH LECTURER antibody which is likely a false positive [...] gi dr arias for her pancreatitis . [place] and egd utd and nl in past year per pt. Seen with dr woodruff today. Past serologies: [facility] panel 08/2019---labs reveal positive anti-SPANISH LECTURER antibody which is likely a false positive due to negative ASHLEY. RF neg but has a possible family hx of psoriatic arthritis (father) so if she develops psoriasis diagnosis will change to psoriatic arthritis. Rt hand US 09/2019 showed: F/u 1 month. Assessment & Plan (06/28/2021 10:22 AM SCREEN VENT BINDER): Images from the original note were not [...] Past serologies: [facility] panel 08/2019---labs reveal positive anti-SPANISH LECTURER antibody which is likely a false positive due to negative ASHLEY. RF neg but has a possible family hx of psoriatic arthritis (father) so if she develops psoriasis diagnosis will change to psoriatic arthritis. Rt hand US 09/2019 showed: F/u 1 month. Assessment & Plan (06/15/2021 10:46 AM SCREEN VENT BINDER): Images from the original note were not [...] Past serologies: [facility] panel 08/2019---labs reveal positive anti-SPANISH LECTURER antibody which is likely a false positive due to negative ASHLEY. RF neg but has a possible family hx of psoriatic arthritis (father) so if she develops psoriasis diagnosis will change to psoriatic arthritis. Rt hand US 09/2019 showed: F/u 1 month. Assessment & Plan (06/09/2021 10:16 AM SCREEN VENT BINDER): Images from the original note were not [...] Past serologies: [facility] panel 08/2019---labs reveal positive anti-SPANISH LECTURER antibody which is likely a false positive due to negative ASHLEY. RF neg but has a possible family hx of psoriatic arthritis (father) so if she develops psoriasis diagnosis will change to psoriatic arthritis. Rt hand US 09/2019 showed: F/u 1 month. Assessment & Plan (06/09/2021 8:29 AM SCREEN VENT BINDER): Images from the original note were not [...] Past serologies: [facility] panel 08/2019---labs reveal positive anti-SPANISH LECTURER antibody which is likely a false positive due to negative ASHLEY. RF neg but has a possible family hx of psoriatic arthritis (father) so if she develops psoriasis diagnosis will change to psoriatic arthritis. Rt hand US 09/2019 showed: F/u 1 month. Assessment & Plan (05/05/2021 10:11 PM SCREEN VENT BINDER): Images from the original note were not [...] Past serologies: [facility] panel 08/2019---labs reveal positive anti-SPANISH LECTURER antibody which is likely a false positive due to negative ASHLEY. RF neg but has a possible family hx of psoriatic arthritis (father) so if she develops psoriasis diagnosis will change to psoriatic arthritis. Rt hand US 09/2019 showed: F/u 1 month. Assessment & Plan (03/31/2021 9:24 AM SCREEN VENT BINDER): Images from the original note were not [...] Past serologies: [facility] panel 08/2019---labs reveal positive anti-SPANISH LECTURER antibody which is likely a false positive [...] Past serologies: [facility] panel 08/2019---labs reveal positive anti-SPANISH LECTURER antibody which is likely a false positive [...] Past serologies: [facility] panel 08/2019---labs reveal positive anti-SPANISH LECTURER antibody which is likely a false positive [...] Past serologies: [facility] panel 08/2019---labs reveal positive anti-SPANISH LECTURER antibody which is likely a false positive due to negative ASHLEY. RF neg but has a possible family hx of psoriatic arthritis (father) so if she develops psoriasis diagnosis will change to psoriatic arthritis. Rt [facility] 09/2019 showed: Assessment & Plan (07/18/2020 8:24 AM CDT): Images from the original note were not included. High cdai. On imuran to 100mg bid and Stelara. Discussed potential se and risks of stelara tx. To see her gi for her diarrhea, she is due for colonoscopy. Continue imuran. To get covid 19 vaccine when available. Past serologies: [facility] panel 08/2019---labs reveal positive anti-SPANISH LECTURER antibody which is likely a false positive due to negative ASHLEY. RF neg but has a possible family hx of psoriatic arthritis (father) so if she develops psoriasis diagnosis will change to psoriatic arthritis. Rt [facility] 09/2019 showed: Assessment & Plan (06/03/2020 5:27 PM SCREEN VENT BINDER): Images from the original note were not [...] Past serologies: [facility] panel 08/2019---labs reveal positive anti-SPANISH LECTURER antibody which is likely a false positive due to negative ASHLEY. RF neg but has a possible family hx of psoriatic arthritis (father) so if she develops psoriasis diagnosis will change to psoriatic arthritis. Rt [facility] 09/2019 showed: Assessment & Plan (03/25/2020 3:01 PM SCREEN VENT BINDER): Images from the original note were not [...] Past serologies: [facility] panel 08/2019---labs reveal positive anti-SPANISH LECTURER antibody which is likely a false positive due to negative ASHLEY. RF neg but has a possible family hx of psoriatic arthritis (father) so if she develops psoriasis diagnosis will change to psoriatic arthritis. Rt [facility] 09/2019 showed: Assessment & Plan (03/24/2020 7:29 AM SCREEN VENT BINDER): Images from the original note were not included. Bernardino zapien Wants to go back to sq orencia, gave pt 1 mo of samples and will start approval. Can't come in for iv orencia, her dad is on hospice. Increase imuran to 100mg bid, check cbc/cmp in 2 weeks and f/u in 1month. Past serologies: [facility] panel 08/2019---labs reveal positive anti-SPANISH LECTURER antibody which is likely a false positive due to negative ASHLEY. RF neg but has a possible family hx of psoriatic arthritis (father) so if she develops psoriasis diagnosis will change to psoriatic arthritis. Rt [facility] 09/2019 showed: Assessment & Plan (02/19/2020 11:34 AM CDT): Bernardino zapien Wants to go back to sq orencia, gave pt 1 mo of samples and will start approval. Can't come in for iv orencia, her dad is on hospice. Increase imuran to 100mg bid, check cbc/cmp in 2 weeks and f/u in 1month. Past serologies: [facility] panel 08/2019---labs reveal positive anti-SPANISH LECTURER antibody which is likely a false positive due to negative ASHLEY. RF neg but has a possible family hx of psoriatic arthritis (father) so if she develops psoriasis diagnosis will change to psoriatic arthritis. Rt [facility] 09/2019 showed: Assessment & Plan (01/22/2020 [...] Past serologies: [facility] panel 08/2019---labs reveal positive anti-SPANISH LECTURER antibody which is likely a false positive [...] every day. [facility] panel 08/2019---labs reveal positive anti-SPANISH LECTURER antibody which is likely a false positive due to negative ASHLEY. Otherwise labs look good. No evidence of a new autoimmune connective tissue disease. Cont orencia sq and imuran 100mg po qhs. [place] better on iv orencia, will change from [...] since resolved. [facility] panel 08/2019---labs reveal positive anti-SPANISH LECTURER antibody which is likely a false positive [...] of orencia. [facility] panel 08/2019---labs reveal positive anti-SPANISH LECTURER antibody which is likely a false positive [...] of orencia. [facility] panel 08/2019---labs reveal positive anti-SPANISH LECTURER antibody which is likely a false positive [...] wnl. Assessment & Plan (04/23/2019 1:46 PM SCREEN VENT BINDER): High cdai. On orencia IV but has [...] citrate. Assessment & Plan (06/03/2020 2:56 PM SCREEN VENT BINDER): Multiple kidney stones for over 10 yrs, [...] on file Legal Sex Female 9:24 PM SCREEN VENT BINDER Gender Identity Female 08/14/2022 11:32 AM CDT [...] HEPATITIS C AB Routine 06/29/2015 2:43 PM SCREEN VENT BINDER from Last 3 Months or Most Recently Relevant to Health Maintenance Results * ThinPrep Pap with HPV (12/24/2018 3:41 PM CDT) 12/24/2018 3:41 PM CDT 12/25/2018 8:54 AM CDT [facility] - 12/26/2018 2:53 PM CDT [facility] Department of Pathology [address] [place] [address], [place] [address] Final Report with Addendum Patient Name: JULIAN SAUER Address: [address] [place] [address] Gender: F : 1975 (Age: 43) Service: Laboratory Location: Lab [facility] #: [id number] Patient Type: CH Ref Lab Taken: 12/24/2018 Received: 12/25/2018 Accessioned:: 12/26/2018 Reported: 12/26/2018 Physician(s): Curtis Oseguera M.D. [facility] Diagnosis: Source of Specimen: SCREENING IMAGED [...] determined by the Surgical Pathology Department at [facility] as part of an ongoing quality assurance coordinator program and in compliance with federally mandated [...] characteristics determined by the Surgical Pathology Department [facility]. It has not been cleared or approved by the U. S. Food and Drug Administration. us Curtis Oseguera MD LAB CYTOLOGY ORDERABLES Final Result [facility] [id number] [place], [place] [address] [phone] * Serum Hepatitis C ab (06/29/2015 2:43 PM SCREEN VENT BINDER) HCV ab Non-Reacti ve Non-Reacti ve HISTORICAL RESULTS Serum 06/29/2015 2:43 PM SCREEN VENT BINDER Miriam VALLE LAB BLOOD ORDERAB LES Final Result Performing Organization Address City/[facility] Co de Phone Number HISTORICAL RESULTS from Last 3 Months or Most Recently Relevant to Health Maintenance Insurance [facility] BLUE ACCESS [place] BLUE ACCESS [place] BLUE ACCESS [place] Care Teams Tool Polishing Machine Operator Relationship Specialty Start Date End Date Bhupinder Tobias MD [address] [place] [address] PCP - General Internal Medicine 06/03/20 Cash Woodruff III, MD [address] [place] [address] Rheumatology 04/12/17 Jorge Aguiar MD [address] [place] [address] Consulting Physician Urology 11/10/20 Khoa Arias MD [address] [place] [address] Referring Physician Gastroenterology 03/20/21
--- OUTSIDE RECORDS SUMMARY | 2024-09-28 06:29 | XMS_ITS | Clinical Summary ---
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 Active pregabalin (LYRICA) 100 mg Capsule Take [...] Comments Blood Pressure 131/87 04/01/2019 10:31 AM MANUAL QA TESTER Pulse 101 04/01/2019 10:31 AM MANUAL QA TESTER Temperature 36.4 C (97.6 F) 12/29/2018 12:00 PM CDT Respiratory Rate 18 12/29/2018 12:00 PM CDT Oxygen Saturation 99% 12/29/2018 12:00 PM CDT Inhaled Oxygen Concentration - - Weight 90.5 kg (199 lb 9.6 oz) 04/01/2019 10:31 AM MANUAL QA TESTER Height 170.7 cm (5' 7.2) 04/01/2019 10:31 AM CS T Body Mass Index 31.08 04/01/2019 10:31 AM MANUAL QA TESTER Plan of Treatment Health Maintenance Due Date [...] Tdap) 05/10/2027 Insurance [employer] [place]TRUE BLUE PPO BS BLUE ACCESS/TRUE BLUE PPO Advance Directives For more information, please contact: [phone] * Full Code (Latest Code Status on File) Date Activated Date Inactivated Comments 12/27/2018 10:12 AM 12/29/2018 7:43 PM Care Teams Negotiator Sales Relationship Specialty Start Date End Date Isaiah Quiros MD [address] [place] [address] PCP - General Internal Medicine 04/16/18
--- OUTSIDE RECORDS SUMMARY | 2024-09-28 06:29 | XMS_ITS | Clinical Summary ---
Author Organization [facility] Address [address], [address] [address] Phone Care Team Providers Care Advanced Quality Engineer Name Role Phone Marbin Fair DO Unavailable [phone] Amadeo Hernandez MD Unavailable Isaiah Quiros MD Primary Care Provider [phone] Medications cholestyramine (QUESTRAN) 4 GM Pack Take 1 Packet by mouth 2 times daily (with meals). 180 Packet 3 03/09/2019 Active Social History Tobacco Use Types Packs/Day Years Used Date Smoking Tobacco: Never Assessed Comments Unknown Sex and Gender Information Value Date Recorded Sex Assigned at Not on file Legal Sex Female 3:35 PM TANK TERMINAL GAUGER Gender Identity Not on file Sexual Orientation [...] (Adult) (1 - 1-dose 75+ series) 2049 Meningococcal Immunization (ACWY) Aged Out No longer [...] Most Recently Relevant to Health Maintenance Insurance [facility] Care Teams Advanced Quality Engineer Relationship Specialty Start Date End Date Isaiah Quiros MD [address], [address] [place] [address] PCP - General Internal Medicine 05/08/18 Marbin Fair DO Gastroenterology 12/03/16 Amadeo Hernandez MD [address] [place] [address] 12/03/16
[2024-09-28 06:37] VITALS: BP 141/101; PULSE 109; RESP 20; TEMP 36.7; O2SAT 100
[2024-09-28 06:52] LABS: Basophils Absolute Auto 0.1 K/mm3 (0.0-0.1); Basophils Percent Auto 1.6 % (0.2-1.2); Eosinophils Absolute Auto 0.1 K/mm3 (0-0.3); Eosinophils Percent Auto 2.8 % (0-4.4); Hematocrit 44.5 % (37.0-47.0); Hemoglobin 13.4 g/dL (12.0-15.0); Immature Granulocyte Absolute 0.05 K/mm3 (0.00-0.031); Lymphocytes Absolute Auto 1.94 K/mm3 (0.9-3.2); Lymphocytes Percent Auto 39.1 % (18.3-44.2); Mean Corpuscular HGB Conc 30.1 g/dl (32-36); Mean Corpuscular Volume 83.2 fl (80-100); Mean Platelet Volume 8.9 fl (7.4-10.4); Monocytes Absolute Auto 0.3 K/mm3 (0.1-0.6); Neutrophils Absolute Auto 2.5 K/mm3 (1.3-6.7); Neutrophils Percent Auto 50.5 % (45.5-73.1); Platelet Count Result 311 k/mm3 (150-375); Red Blood Count 5.35 M/mm3 (4.2-5.4); Red Cell Distribution Width 16.4 % (11.5-14.5)
[2024-09-28 07:03] LABS: Alanine Aminotransferase 85 U/L (6-35); Albumin Level 4.7 g/dL (3.5-5.1); Alkaline Phosphatase 86 U/L (38-126); Anion Gap 15 mmol/L (4-12); Aspartate Amino Transferase 77 U/L (14-36); Bilirubin,Total 0.6 mg/dL (0.2-1.3); Blood Urea Nitrogen 13 mg/dL (7-17); Calcium 9.6 mg/dL (8.4-10.2); Carbon Dioxide 22 mmol/L (22-30); Chloride 103 mmol/L (98-107); Estimated CRCL calculation 54 ml/min; Estimated Glomerular Filt Rate 45; Glucose 118 mg/dL (65-110); Lipase 485 U/L (23-300); Potassium 3.4 mmol/L (3.4-5.0); Sodium 140 mmol/L (137-145); Total Protein 8.2 g/dL (6.3-8.2)
[2024-09-28 07:04] LABS: Add Urine Microscopic? YES; Appearance Urine Cloudy (Clear); Bacteria Urine 2+ /hpf; Bilirubin Urine 1+ (Negative); Blood Urine Trace (Negative); Color Urine Dark Yellow (Yellow); Glucose Urine UA Negative (Negative); Ketones Urine Trace mg/dL (Negative); Leukocyte Esterase Ur Trace LEU/UL (Negative); Need Manual Microscopic Reviewed; Nitrate Urine Negative (Negative); Protein Urine Trace mg/dL (Negative); Specific Grav Ur 1.032 (1.001-1.035); Squamous Epithelial Cell Urine Many /hpf (Few); pH Urine 5.5 (5.0-9.0)
[2024-09-28 07:16] VITALS: BP 105/89; PULSE 98; RESP 17; O2SAT 99
--- NOTE | 2024-09-28 07:32 | ECG_ITS ---
Test Date: 2024-09-28 07:47:44 Measurements Intervals Proctor Rate: 86 P: 40 NM: 161 QRS: 39 QRSD: 88 T: 52 QT: 375 QTc: 449 Interpretive Statements SINUS RHYTHM NORMAL ECG Compared to ECG 04/23/2024 01:10:29 No significant changes Electronically Signed On 09-28-2024 08:20:11 CDT by Aramndo Herrera D.O.
[2024-09-28] MEDS: LACTATED RINGERS 1,000 ML 999 ML IV CONT (07:46)
[2024-09-28] MEDS: HYDROmorphone HCL INJ (*CRX) 2 MG/ML VIAL 1 MG IV PUSH (07:46)
[2024-09-28] MEDS: ONDANSETRON INJ 4 MG/2 ML VIAL IV PUSH (07:47)
--- OUTSIDE RECORDS SUMMARY | 2024-09-28 08:04 | XMS_ITS | Clinical Summary ---
Author Organization [facility] Address [address] [place] [address] Care Team Providers Care Veterinary X Ray Operator Name Role Phone Jonathan Hartman RN Unavailable [phone] Feliciano Dash MD Primary Care Provider [phone] Source Comments [facility],non-owned Affiliates and Associated Physician Practices is amultiple site organization consisting of ambulatory clinics and hospital sitesin [place], [place], [place] and [place]. This disclosure is being madepursuant to the Care Everywhere program and may not contain all information available regarding this patient. Last updated 18.[facility] Allergies Active Allergy Reactions Criticality Noted Date [...] transdermal route every 24 hours. Obtains from [facility] [place]. 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 Obtains from [facility] [place]. 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 All rights reserved. The codes documented in this report are preliminary and upon appraiser boats and marine review may be revised to meet current compliance requirements. Armando Corona, 12/15/2015 12:47:51 PM This report has been signed electronically. Number of Addenda: 0 Note Initiated On: 12/15/2015 12:23 PM [facility] 12/15/2015 12:2 3 PM CDT Narrative Transcriptions Armando Corona MD - 12/15/2015 12:53 PM CDT Neg colon s/p random bx us Armando Corona MD GI PROCEDURE ORDERABLES Edited R esult - Final [facility] * (ABNORMAL) LIPID PROFILE (08/02/2015 10:02 AM CDT) Cholesterol 184 <200 mg/dL 08/02/2015 10:49 AM CDT [facility] Triglycerides 156(H) <150 mg/dL 08/02/2015 10:49 AM CDT [facility] HDL Cholesterol 43 >40 mg/dL 08/02/2015 10:49 AM CDT [facility] LDL Calculated 110 <130 mg/dL 08/02/2015 10:49 AM CDT [facility] VLDL Calculated 31(H) <=30 mg/dL 08/02/2015 10:49 AM CDT [facility] Chol HDL Ratio 4.3 <4.5 08/02/2015 10:49 AM CDT [facility] LDL/HDL Ratio 2.6 <5.0 08/02/2015 10:49 AM CDT [facility] Blood BLOOD SPECIMEN / Unknown Lab Venipuncture / Unknown 08/02/2015 10:02 AM CDT 08/02/2015 10:13 AM CDT us Chucho Hinton MD LAB - CHEMISTRY ORDERABLES Fi nal Result [facility] [address] [place] [address] from Last 3 Months or Most Recently Relevant to Health Maintenance Insurance [facility] SELF PAY NO INSURANCE Member Subscriber Plan / Payer (Ef fective for All Dates) Name:Julian Sauer Member ID:Not on file Relation to Subscriber:Not on file Name:JULIAN SAUER Subscriber ID:Not on file (Home) Address: [address] [place] [address] Payer ID:Not on file Group ID:Not on file Type:Self Pay Address: [place], [place] [facility] SELF PAY NO INSURANCE Member Subscriber Plan / Payer (Ef fective for All Dates) Name:Julian Sauer Member ID:Not on file Relation to Subscriber:Not on file Name:JULIAN SAUER Subscriber ID:Not on file Address: [address] [place] [address] Payer ID:Not on file Group ID:Not on file Type:Self Pay Address: [place], [place] [facility] SELF PAY NO INSURANCE Member Subscriber Plan / Payer (Ef fective for All Dates) Name:Julian Sauer Member ID:Not on file Relation to Subscriber:Not on file Name:JULIAN SAUER Subscriber ID:Not on file Address: [address] [place] [address] Payer ID:Not on file Group ID:Not on file Type:Self Pay Address: [place], [place] Advance Directives * Full Code (Latest Code Status on File) Date Activated Date Inactivated Comments 01/29/2017 7:53 PM 02/02/2017 1:02 PM * Full Code Date Activated Date Inactivated Comments 08/02/2015 1:57 AM 08/05/2015 3:00 PM * Full Code Date Activated Date Inactivated Comments 07/13/2015 10:36 PM 07/16/2015 3:55 PM Care Teams Veterinary X Ray Operator Relationship Specialty Start Date End Date Feliciano Dash MD [address] [facility] [address] [place] [address] PCP - General 07/14/21 Jonathan Hartman RN Armed Security Professional 07/14/15
--- OUTSIDE RECORDS SUMMARY | 2024-09-28 08:04 | XMS_ITS | Clinical Summary ---
Author Organization [facility] Address [address], [address] [address] Phone Care Team Providers Care Relief Cook Name Role Phone Marbin Fair DO Unavailable [phone] Amadeo Hernandez MD Unavailable Isaiah Quiros MD Primary Care Provider [phone] Medications cholestyramine (QUESTRAN) 4 GM Pack Take 1 Packet by mouth 2 times daily (with meals). 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
--- OUTSIDE RECORDS SUMMARY | 2024-09-28 08:04 | XMS_ITS | Referral Summary ---
Author Organization [id number] Address [address] [place] [address] Phone Care Team Providers Care Vegetable Vendor Name Role Phone Kumar CARRILLO MD, John J. Unavailable [phone] Bhupinder Tobias MD Primary Care Provider [phone] Jorge Aguiar MD Unavailable [phone] Khoa Arias MD Unavailable [phone] Allergies No known active allergies Medications SUMAtriptan [...] (08/30/2021): Added automatically from request for surgery [id number] Abdominal pain 03/31/2021 Assessment & Plan (06/28/2021 10:08 AM FILLING STATION ATTENDANT): Recently dx with mild pancreatitis. Needs lipase/amylase rechecked. Still has some upper abd pain. Advised pt to f/u with GI also. Assessment & Plan (06/19/2021 8:52 AM FILLING STATION ATTENDANT): Had abd pain early this month, check amyl/lip and ua. Pain has resolved. Assessment & Plan (05/05/2021 10:13 PM FILLING STATION ATTENDANT): Having abd pain, bloating, constipation. On meds for IBS and also using suppositories to have BM. Incidental findings of mesenteric fat stranding (adenitis or panniculitis) on abd CT. Awaiting further eval by Dr. Arias. Assessment & Plan (03/31/2021 8:44 AM FILLING STATION ATTENDANT): Elevated lipase. Imuran stopped. Pt advised to [...] 04/23/2019 Assessment & Plan (03/24/2020 7:29 AM FILLING STATION ATTENDANT): Normal serum immunoglobulins. Assessment & Plan (01/21/2020 [...] immunoglobulins. Assessment & Plan (04/23/2019 1:46 PM FILLING STATION ATTENDANT): Check serum immunoglobulins. Osteoporosis without current pathological fractu re 09/18/2018 Assessment & Plan (08/10/2021 8:09 AM CDT): bds checked by pcp in past, is taking ca and vit d and pcp checked vit D and PTH per pt was wnl. Her pcp started her on alendronate 70mg po qweek. Taking ca + vit d 1200mg qd. Assessment & Plan (06/15/2021 10:46 AM FILLING STATION ATTENDANT): bds checked by pcp in past, is taking ca and vit d and pcp checked vit D and PTH per pt was wnl. Her pcp started her on alendronate 70mg po qweek. Taking ca + vit d 1200mg qd. Assessment & Plan (06/09/2021 8:30 AM FILLING STATION ATTENDANT): bds checked by pcp in past, is taking ca and vit d and pcp checked vit D and PTH per pt was wnl. Her pcp started her on alendronate 70mg po qweek. Taking ca + vit d 1200mg qd. Assessment & Plan (05/04/2021 8:19 AM FILLING STATION ATTENDANT): bds checked by pcp in past, is [...] qd. Assessment & Plan (06/03/2020 7:38 AM FILLING STATION ATTENDANT): bds checked by pcp in past, is taking ca and vit d and pcp checked vit D and PTH per pt was wnl. Her pcp started her on alendronate 70mg po qweek. Taking ca + vit d 1200mg qd. Assessment & Plan (03/25/2020 8:34 AM FILLING STATION ATTENDANT): bds checked by pcp in past, is taking ca and vit d and pcp checked vit D and PTH per pt was wnl. Her pcp started her on alendronate 70mg po qweek. Taking ca + vit d 1200mg qd. Assessment & Plan (03/24/2020 7:29 AM FILLING STATION ATTENDANT): bds checked by pcp in past, is [...] qd. Assessment & Plan (04/20/2019 4:56 PM FILLING STATION ATTENDANT): bds checked by pcp in past, is [...] pcp. Assessment & Plan (06/03/2020 7:37 AM FILLING STATION ATTENDANT): Was advised in past to get chest CT to r/o aortic aneurysm, to discuss with pcp. Assessment & Plan (03/25/2020 8:33 AM FILLING STATION ATTENDANT): Was advised in past to get chest CT to r/o aortic aneurysm, to discuss with pcp. Assessment & Plan (03/24/2020 7:29 AM FILLING STATION ATTENDANT): Was advised in past to get chest [...] pcp. Assessment & Plan (04/20/2019 4:57 PM FILLING STATION ATTENDANT): Advised to get chest CT to r/o aortic aneurysm, to discuss with pcp. Assessment & Plan (10/31/2018 7:38 AM CDT): Advised to get chest CT to r/o aortic aneurysm, to discuss with pcp. Encounter for long-term (current) use of medicat ions 01/31/2017 Assessment & Plan (05/28/2022 8:07 AM FILLING STATION ATTENDANT): Quant gold neg 12/2019 Hep B and [...] showed osteoporosis [facility] 08/2019---[facility] labs reveal positive anti-CLAIM AUDITOR antibody which is likely a false positive due to negative ASHLEY. Her father had psoriasis, pt changed from ra to PsA on 03/25/2020. Assessment & Plan (02/26/2022 8:16 AM FILLING STATION ATTENDANT): Quant gold neg 12/2019 Hep B and [...] showed osteoporosis [facility] 08/2019---[facility] labs reveal positive anti-CLAIM AUDITOR antibody which is likely a false positive [...] showed osteoporosis [facility] 08/2019---[facility] labs reveal positive anti-CLAIM AUDITOR antibody which is likely a false positive [...] showed osteoporosis [facility] 08/2019---[facility] labs reveal positive anti-CLAIM AUDITOR antibody which is likely a false positive [...] showed osteoporosis [facility] 08/2019---[facility] labs reveal positive anti-CLAIM AUDITOR antibody which is likely a false positive [...] showed osteoporosis [facility] 08/2019---[facility] labs reveal positive anti-CLAIM AUDITOR antibody which is likely a false positive due to negative ASHLEY. Her father had psoriasis, pt changed from ra to PsA on 03/25/2020. Assessment & Plan (06/28/2021 8:44 AM FILLING STATION ATTENDANT): Quant gold neg 12/2019 Hep B and [...] showed osteoporosis [facility] 08/2019---[facility] labs reveal positive anti-CLAIM AUDITOR antibody which is likely a false positive due to negative ASHLEY. Her father had psoriasis, pt changed from ra to PsA on 03/25/2020. Assessment & Plan (06/15/2021 10:44 AM FILLING STATION ATTENDANT): Quant gold neg 12/2019 Hep B and [...] showed osteoporosis [facility] 08/2019---[facility] labs reveal positive anti-CLAIM AUDITOR antibody which is likely a false positive due to negative ASHLEY. Her father had psoriasis, pt changed from ra to PsA on 03/25/2020. Assessment & Plan (06/09/2021 10:15 AM FILLING STATION ATTENDANT): Quant gold neg 12/2019 Hep B and [...] showed osteoporosis [facility] 08/2019---[facility] labs reveal positive anti-CLAIM AUDITOR antibody which is likely a false positive due to negative ASHLEY. Her father had psoriasis, pt changed from ra to PsA on 03/25/2020. Assessment & Plan (06/09/2021 8:29 AM FILLING STATION ATTENDANT): Quant gold neg 12/2019 Hep B and [...] showed osteoporosis [facility] 08/2019---[facility] labs reveal positive anti-CLAIM AUDITOR antibody which is likely a false positive due to negative ASHLEY. Her father had psoriasis, pt changed from ra to PsA on 03/25/2020. Assessment & Plan (05/04/2021 8:19 AM FILLING STATION ATTENDANT): Quant gold neg 12/2019 Hep B and [...] showed osteoporosis [facility] 08/2019---[facility] labs reveal positive anti-CLAIM AUDITOR antibody which is likely a false positive due to negative ASHLEY. Her father had psoriasis, pt changed from ra to PsA on 03/25/2020. Assessment & Plan (03/31/2021 9:20 AM FILLING STATION ATTENDANT): Quant gold neg 12/2019 Hep B and [...] showed osteoporosis [facility] 08/2019---[facility] labs reveal positive anti-CLAIM AUDITOR antibody which is likely a false positive [...] showed osteoporosis [facility] 08/2019---[facility] labs reveal positive anti-CLAIM AUDITOR antibody which is likely a false positive [...] showed osteoporosis [facility] 08/2019---[facility] labs reveal positive anti-CLAIM AUDITOR antibody which is likely a false positive [...] showed osteoporosis [facility] 08/2019---[facility] labs reveal positive anti-CLAIM AUDITOR antibody which is likely a false positive [...] showed osteoporosis [facility] 08/2019---[facility] labs reveal positive anti-CLAIM AUDITOR antibody which is likely a false positive due to negative ASHLEY. Her father had psoriasis, pt changed from ra to PsA on 03/25/2020. Assessment & Plan (06/03/2020 2:56 PM FILLING STATION ATTENDANT): Quant gold neg 12/2019 Hep B and [...] showed osteoporosis [facility] 08/2019---[facility] labs reveal positive anti-CLAIM AUDITOR antibody which is likely a false positive due to negative ASHLEY. Her father had psoriasis, pt changed from ra to PsA on 03/25/2020. Assessment & Plan (03/25/2020 3:03 PM FILLING STATION ATTENDANT): Quant gold neg 12/2019 HLA B27 negative [...] showed osteoporosis [facility] 08/2019---[facility] labs reveal positive anti-CLAIM AUDITOR antibody which is likely a false positive due to negative ASHLEY. Her father had psoriasis, pt changed from ra to PsA on 03/25/2020. Assessment & Plan (03/24/2020 7:28 AM FILLING STATION ATTENDANT): Quant gold neg 12/2019 HLA B27 negative [...] showed osteoporosis [facility] 08/2019---[facility] labs reveal positive anti-CLAIM AUDITOR antibody which is likely a false positive [...] showed osteoporosis [facility] 08/2019---[facility] labs reveal positive anti-CLAIM AUDITOR antibody which is likely a false positive [...] showed osteoporosis [facility] 08/2019---[facility] labs reveal positive anti-CLAIM AUDITOR antibody which is likely a false positive [...] showed osteoporosis [facility] 08/2019---[facility] labs reveal positive anti-CLAIM AUDITOR antibody which is likely a false positive [...] showed osteoporosis [facility] 08/2019---[facility] labs reveal positive anti-CLAIM AUDITOR antibody which is likely a false positive [...] showed osteoporosis [facility] 08/2019---[facility] labs reveal positive anti-CLAIM AUDITOR antibody which is likely a false positive [...] osteoporosis Assessment & Plan (04/20/2019 4:59 PM FILLING STATION ATTENDANT): Quant gold neg 10/2018. TPMT nl 17 [...] 01/31/2017 Assessment & Plan (05/28/2022 8:05 AM FILLING STATION ATTENDANT): Images from the original note were not included. Had orencia infusion 05/02/2022. Continue orencia monotherapy. Off arava due to lipase elevation. Seeing gi at [facility] now. [place] and egd utd and nl in past year per pt. Had a nl pancreatic US recently with gi. Past serologies: [facility] panel 08/2019---labs reveal positive anti-CLAIM AUDITOR antibody which is likely a false positive due to negative ASHLEY. RF neg but has a possible family hx of psoriatic arthritis (father) so if she develops psoriasis diagnosis will change to psoriatic arthritis. Rt hand US 09/2019 showed: F/u 1 month. Assessment & Plan (02/26/2022 12:12 PM FILLING STATION ATTENDANT): Images from the original note were not included. High cdai. Her orencia is scheduled tomorrow. Continue orencia monotherapy. Off arava due to lipase elevation. Seeing gi at [facility] now. [place] and egd utd and nl in past year per pt. Had a nl pancreatic US recently with gi. She could be flaring up since her orencia is due tomorrow, overall she still feels that it is helping her joints. Past serologies: [facility] panel 08/2019---labs reveal positive anti-CLAIM AUDITOR antibody which is likely a false positive [...] no complications or infections. Seeing gi at [facility] now for her elevated lipase. [place] and egd utd and nl in past year per pt. If labs stable will restart low dose arava 10mg po every day. To stay off orencia until recovered from rt knee surgery. Past serologies: [facility] panel 08/2019---labs reveal positive anti-CLAIM AUDITOR antibody which is likely a false positive [...] orencia is scheduled tomorrow. Seeing gi at [facility] now. [place] and egd utd and nl in past year per pt. Due to burden of dz will give her a short course of oral prednisone. Discussed risks and se of systemic steroids. Past serologies: [facility] panel 08/2019---labs reveal positive anti-CLAIM AUDITOR antibody which is likely a false positive [...] orencia is scheduled tomorrow. Seeing gi at [facility] now. [place] and egd utd and nl in past year per pt. Due to burden of dz will give her a short course of oral prednisone. Discussed risks and se of systemic steroids. Past serologies: [facility] panel 08/2019---labs reveal positive anti-CLAIM AUDITOR antibody which is likely a false positive [...] gi dr arias for her pancreatitis . [place] and egd utd and nl in past year per pt. Seen with dr woodruff today. Past serologies: [facility] panel 08/2019---labs reveal positive anti-CLAIM AUDITOR antibody which is likely a false positive due to negative ASHLEY. RF neg but has a possible family hx of psoriatic arthritis (father) so if she develops psoriasis diagnosis will change to psoriatic arthritis. Rt hand US 09/2019 showed: F/u 1 month. Assessment & Plan (06/28/2021 10:22 AM FILLING STATION ATTENDANT): Images from the original note were not [...] Past serologies: [facility] panel 08/2019---labs reveal positive anti-CLAIM AUDITOR antibody which is likely a false positive due to negative ASHLEY. RF neg but has a possible family hx of psoriatic arthritis (father) so if she develops psoriasis diagnosis will change to psoriatic arthritis. Rt hand US 09/2019 showed: F/u 1 month. Assessment & Plan (06/15/2021 10:46 AM FILLING STATION ATTENDANT): Images from the original note were not [...] Past serologies: [facility] panel 08/2019---labs reveal positive anti-CLAIM AUDITOR antibody which is likely a false positive due to negative ASHLEY. RF neg but has a possible family hx of psoriatic arthritis (father) so if she develops psoriasis diagnosis will change to psoriatic arthritis. Rt hand US 09/2019 showed: F/u 1 month. Assessment & Plan (06/09/2021 10:16 AM FILLING STATION ATTENDANT): Images from the original note were not [...] Past serologies: [facility] panel 08/2019---labs reveal positive anti-CLAIM AUDITOR antibody which is likely a false positive due to negative ASHLEY. RF neg but has a possible family hx of psoriatic arthritis (father) so if she develops psoriasis diagnosis will change to psoriatic arthritis. Rt hand US 09/2019 showed: F/u 1 month. Assessment & Plan (06/09/2021 8:29 AM FILLING STATION ATTENDANT): Images from the original note were not [...] Past serologies: [facility] panel 08/2019---labs reveal positive anti-CLAIM AUDITOR antibody which is likely a false positive due to negative ASHLEY. RF neg but has a possible family hx of psoriatic arthritis (father) so if she develops psoriasis diagnosis will change to psoriatic arthritis. Rt hand US 09/2019 showed: F/u 1 month. Assessment & Plan (05/05/2021 10:11 PM FILLING STATION ATTENDANT): Images from the original note were not [...] Past serologies: [facility] panel 08/2019---labs reveal positive anti-CLAIM AUDITOR antibody which is likely a false positive due to negative ASHLEY. RF neg but has a possible family hx of psoriatic arthritis (father) so if she develops psoriasis diagnosis will change to psoriatic arthritis. Rt hand US 09/2019 showed: F/u 1 month. Assessment & Plan (03/31/2021 9:24 AM FILLING STATION ATTENDANT): Images from the original note were not [...] Past serologies: [facility] panel 08/2019---labs reveal positive anti-CLAIM AUDITOR antibody which is likely a false positive [...] Past serologies: [facility] panel 08/2019---labs reveal positive anti-CLAIM AUDITOR antibody which is likely a false positive [...] Past serologies: [facility] panel 08/2019---labs reveal positive anti-CLAIM AUDITOR antibody which is likely a false positive [...] Past serologies: [facility] panel 08/2019---labs reveal positive anti-CLAIM AUDITOR antibody which is likely a false positive due to negative ASHLEY. RF neg but has a possible family hx of psoriatic arthritis (father) so if she develops psoriasis diagnosis will change to psoriatic arthritis. Rt [facility] 09/2019 showed: Assessment & Plan (07/18/2020 8:24 AM CDT): Images from the original note were not included. High cdai. On imuran to 100mg bid and Stelara. Discussed potential se and risks of stelara tx. To see her gi for her diarrhea, she is due for colonoscopy. Continue imuran. To get covid 19 vaccine when available. Past serologies: [facility] panel 08/2019---labs reveal positive anti-CLAIM AUDITOR antibody which is likely a false positive due to negative ASHLEY. RF neg but has a possible family hx of psoriatic arthritis (father) so if she develops psoriasis diagnosis will change to psoriatic arthritis. Rt [facility] 09/2019 showed: Assessment & Plan (06/03/2020 5:27 PM FILLING STATION ATTENDANT): Images from the original note were not [...] Past serologies: [facility] panel 08/2019---labs reveal positive anti-CLAIM AUDITOR antibody which is likely a false positive due to negative ASHLEY. RF neg but has a possible family hx of psoriatic arthritis (father) so if she develops psoriasis diagnosis will change to psoriatic arthritis. Rt [facility] 09/2019 showed: Assessment & Plan (03/25/2020 3:01 PM FILLING STATION ATTENDANT): Images from the original note were not [...] Past serologies: [facility] panel 08/2019---labs reveal positive anti-CLAIM AUDITOR antibody which is likely a false positive due to negative ASHLEY. RF neg but has a possible family hx of psoriatic arthritis (father) so if she develops psoriasis diagnosis will change to psoriatic arthritis. Rt [facility] [place] 09/2019 showed: Assessment & Plan (03/24/2020 7:29 AM FILLING STATION ATTENDANT): Images from the original note were not included. Bernardino zapien Wants to go back to sq orencia, gave pt 1 mo of samples and will start approval. Can't come in for iv orencia, her dad is on hospice. Increase imuran to 100mg bid, check cbc/cmp in 2 weeks and f/u in 1month. Past serologies: [facility] panel 08/2019---labs reveal positive anti-CLAIM AUDITOR antibody which is likely a false positive due to negative ASHLEY. RF neg but has a possible family hx of psoriatic arthritis (father) so if she develops psoriasis diagnosis will change to psoriatic arthritis. Rt [facility] 09/2019 showed: Assessment & Plan (02/19/2020 11:34 AM CDT): Bernardino zapien Wants to go back to sq orencia, gave pt 1 mo of samples and will start approval. Can't come in for iv orencia, her dad is on hospice. Increase imuran to 100mg bid, check cbc/cmp in 2 weeks and f/u in 1month. Past serologies: [facility] panel 08/2019---labs reveal positive anti-CLAIM AUDITOR antibody which is likely a false positive due to negative ASHLEY. RF neg but has a possible family hx of psoriatic arthritis (father) so if she develops psoriasis diagnosis will change to psoriatic arthritis. Rt [facility] 09/2019 showed: Assessment & Plan (01/22/2020 12:51 PM CDT): Images from the original note were not included. Bernardino zpaien, improved from last time although pt still [...] Past serologies: [facility] panel 08/2019---labs reveal positive anti-CLAIM AUDITOR antibody which is likely a false positive [...] every day. [facility] panel 08/2019---labs reveal positive anti-CLAIM AUDITOR antibody which is likely a false positive due to negative ASHLEY. Otherwise labs look good. No evidence of a new autoimmune connective tissue disease. Cont orencia sq and imuran 100mg po qhs. [place] better on iv orencia, will change from [...] since resolved. [facility] panel 08/2019---labs reveal positive anti-CLAIM AUDITOR antibody which is likely a false positive [...] of orencia. [facility] panel 08/2019---labs reveal positive anti-CLAIM AUDITOR antibody which is likely a false positive [...] of orencia. [facility] panel 08/2019---labs reveal positive anti-CLAIM AUDITOR antibody which is likely a false positive [...] wnl. Assessment & Plan (04/23/2019 1:46 PM FILLING STATION ATTENDANT): High cdai. On orencia IV but has [...] citrate. Assessment & Plan (06/03/2020 2:56 PM FILLING STATION ATTENDANT): Multiple kidney stones for over 10 yrs, [...] on file Legal Sex Female 9:24 PM FILLING STATION ATTENDANT Gender Identity Female 08/14/2022 11:32 AM [...] HEPATITIS C AB Routine 06/29/2015 2:43 PM FILLING STATION ATTENDANT from Last 3 Months or Most Recently Relevant to Health Maintenance Results * ThinPrep Pap with HPV (12/24/2018 3:41 PM CDT) 12/24/2018 3:41 PM CDT 12/25/2018 8:54 AM CDT [facility] - 12/26/2018 2:53 PM CDT [facility] Department of Pathology [address] [place] [address], [place] [address] Final Report with Addendum Patient Name: JULIAN SAUER Address: [address] [place] [address] Gender: F : 1975 (Age: 43) Service: Laboratory Location: [facility] #: [id number] Patient Type: CH Ref Lab Taken: 12/24/2018 Received: 12/25/2018 Accessioned:: 12/26/2018 Reported: 12/26/2018 Physician(s): Curtis Oseguera M.D. [facility] Diagnosis: Source of Specimen: SCREENING IMAGED [...] determined by the Surgical Pathology Department at [facility] as part of an ongoing quality control tech raw materials program and in compliance with federally mandated [...] characteristics determined by the Surgical Pathology Department [facility]. It has not been cleared or approved by the U. S. Food and Drug Administration. us Curtis Oseguera MD LAB CYTOLOGY ORDERABLES Final Result [facility] [address] [place], [place] [address] [phone] * Serum Hepatitis C ab (06/29/2015 2:43 PM FILLING STATION ATTENDANT) HCV ab Non-Reacti ve Non-Reacti ve HISTORICAL RESULTS Serum 06/29/2015 2:43 PM FILLING STATION ATTENDANT Miriam VALLE LAB BLOOD ORDERAB LES Final Result Performing Organization Address City/[facility] Co de Phone Number HISTORICAL RESULTS from Last 3 Months or Most Recently Relevant to Health Maintenance Insurance [facility] [place]UE [place] Care Teams Vegetable Vendor Relationship Specialty Start Date End Date Bhupinder Tobias MD [address] [place] [address] PCP - General Internal Medicine 06/03/20 Cash Woodruff III, MD [address] [place] [address] Rheumatology 04/12/17 Jorge Aguiar MD [address] [place] [address] Consulting Physician Urology 11/10/20 Khoa Arias MD [address] [place] [address] Referring Physician Gastroenterology 03/20/21
--- OUTSIDE RECORDS SUMMARY | 2024-09-28 08:04 | XMS_ITS | Clinical Summary ---
Author Organization [facility] Address [address] [place] [address] Phone Care Team Providers Care Oven Tender Name Role Phone Isaiah Quiros MD Primary Care Provider [phone] Allergies No known active allergies Medications topiramate [...] tablet Take 300 mg by mouth daily [facility]. Active pregabalin (LYRICA) 100 mg Capsule Take [...] Comments Blood Pressure 131/87 04/01/2019 10:31 AM WELD FITTER Pulse 101 04/01/2019 10:31 AM WELD FITTER Temperature 36.4 C (97.6 F) 12/29/2018 12:00 PM CDT Respiratory Rate 18 12/29/2018 12:00 PM CDT Oxygen Saturation 99% 12/29/2018 12:00 PM CDT Inhaled Oxygen Concentration - - Weight 90.5 kg (199 lb 9.6 oz) 04/01/2019 10:31 AM WELD FITTER Height 170.7 cm (5' 7.2) 04/01/2019 10:31 AM CS T Body Mass Index 31.08 04/01/2019 10:31 AM WELD FITTER Plan of Treatment Health Maintenance Due Date [...] Tdap) 05/10/2027 Insurance [employer] BLUE ACCESS/TRUE BLUE PPO BS BLUE ACCESS/TRUE BLUE PPO Advance Directives For more information, please contact: [phone] * Full Code (Latest Code Status on File) Date Activated Date Inactivated Comments 12/27/2018 10:12 AM 12/29/2018 7:43 PM Care Teams Oven Tender Relationship Specialty Start Date End Date Isaiah Quiros MD [address] [place] [address] PCP - General Internal Medicine 04/16/18
--- OUTSIDE RECORDS SUMMARY | 2024-09-28 08:04 | XMS_ITS | Continuity of Care Document ---
Author Organization [facility] Address [address] [place] [address] Phone Care Team Providers Care Horticultural Technical Officer Name Role Phone Amadeo Arias MD Unavailable [...] Copied on Encounter OFFICE/OUTPAT IENT VISIT EST [facility], [address] [address], [place], [address], tel:[phone] [facility] [place] Patellofemoral instability, rightOther specified sprain of right wrist, initial encounter 0 6 Hugo Childs. [address], [place], [place], [id number] . tel: [phone] [facility], [address], [place], [address], [place] tel:[phone] [facility] Acute bilateral low back pain without sciaticaLeft hip painArthralgia of right hipPatellofemo ral instability, leftPatellofem oral instability, right 6 Hugo Childs. [address], [place], [place], [id number] . tel: [phone] OFFICE CONSULTATION [facility], [address], [place], [address], tel:[phone] [facility] [place] Patellofemoral instability, rightPatellofe moral instability, leftArthralgia of right hipLeft hip painAcute bilateral low back pain without sciatica 201 6 Hugo Childs. [address], [place], [place], [id number] . tel: [phone] Referring Provider: Michelle De La Torre[address], [place], [address] . tel:[phone] Family History Family Member Type Diagnosis Age At Onset Sister Problem (finding) Alive and well Payers Payer name Insurance type Covered green party ID Authoriza tion(s) [facility] Choice/Choice Plus [id number] Social History Type Description Quantity Date Captured [...]
--- OUTSIDE RECORDS SUMMARY | 2024-09-28 08:04 | XMS_ITS | Clinical Summary ---
Author Organization [place] [id number] [facility] Address [address] [place] [address] Phone Care Team Providers Care Industrial Psychology Professor Name Role Phone Kumar CARRILLO MD, John J. Unavailable [phone] Bhupinder Tobias MD Primary Care Provider [phone] Jorge Aguiar MD Unavailable [phone] Khoa Arias MD Unavailable [phone] Allergies No known active allergies Medications SUMAtriptan [...] (08/30/2021): Added automatically from request for surgery [id number] Abdominal pain 03/31/2021 Assessment & Plan (06/28/2021 10:08 AM ADULT DAY CARE WORKER): Recently dx with mild pancreatitis. Needs lipase/amylase rechecked. Still has some upper abd pain. Advised pt to f/u with GI also. Assessment & Plan (06/19/2021 8:52 AM ADULT DAY CARE WORKER): Had abd pain early this month, check amyl/lip and ua. Pain has resolved. Assessment & Plan (05/05/2021 10:13 PM ADULT DAY CARE WORKER): Having abd pain, bloating, constipation. On meds for IBS and also using suppositories to have BM. Incidental findings of mesenteric fat stranding (adenitis or panniculitis) on abd CT. Awaiting further eval by Dr. Arias. Assessment & Plan (03/31/2021 8:44 AM ADULT DAY CARE WORKER): Elevated lipase. Imuran stopped. Pt advised to [...] 04/23/2019 Assessment & Plan (03/24/2020 7:29 AM ADULT DAY CARE WORKER): Normal serum immunoglobulins. Assessment & Plan (01/21/2020 [...] immunoglobulins. Assessment & Plan (04/23/2019 1:46 PM ADULT DAY CARE WORKER): Check serum immunoglobulins. Osteoporosis without current pathological fractu re 09/18/2018 Assessment & Plan (08/10/2021 8:09 AM CDT): bds checked by pcp in past, is taking ca and vit d and pcp checked vit D and PTH per pt was wnl. Her pcp started her on alendronate 70mg po qweek. Taking ca + vit d 1200mg qd. Assessment & Plan (06/15/2021 10:46 AM ADULT DAY CARE WORKER): bds checked by pcp in past, is taking ca and vit d and pcp checked vit D and PTH per pt was wnl. Her pcp started her on alendronate 70mg po qweek. Taking ca + vit d 1200mg qd. Assessment & Plan (06/09/2021 8:30 AM ADULT DAY CARE WORKER): bds checked by pcp in past, is taking ca and vit d and pcp checked vit D and PTH per pt was wnl. Her pcp started her on alendronate 70mg po qweek. Taking ca + vit d 1200mg qd. Assessment & Plan (05/04/2021 8:19 AM ADULT DAY CARE WORKER): bds checked by pcp in past, is [...] qd. Assessment & Plan (06/03/2020 7:38 AM ADULT DAY CARE WORKER): bds checked by pcp in past, is taking ca and vit d and pcp checked vit D and PTH per pt was wnl. Her pcp started her on alendronate 70mg po qweek. Taking ca + vit d 1200mg qd. Assessment & Plan (03/25/2020 8:34 AM ADULT DAY CARE WORKER): bds checked by pcp in past, is taking ca and vit d and pcp checked vit D and PTH per pt was wnl. Her pcp started her on alendronate 70mg po qweek. Taking ca + vit d 1200mg qd. Assessment & Plan (03/24/2020 7:29 AM ADULT DAY CARE WORKER): bds checked by pcp in past, is [...] qd. Assessment & Plan (04/20/2019 4:56 PM ADULT DAY CARE WORKER): bds checked by pcp in past, is [...] pcp. Assessment & Plan (06/03/2020 7:37 AM ADULT DAY CARE WORKER): Was advised in past to get chest CT to r/o aortic aneurysm, to discuss with pcp. Assessment & Plan (03/25/2020 8:33 AM ADULT DAY CARE WORKER): Was advised in past to get chest CT to r/o aortic aneurysm, to discuss with pcp. Assessment & Plan (03/24/2020 7:29 AM ADULT DAY CARE WORKER): Was advised in past to get chest [...] pcp. Assessment & Plan (04/20/2019 4:57 PM ADULT DAY CARE WORKER): Advised to get chest CT to r/o aortic aneurysm, to discuss with pcp. Assessment & Plan (10/31/2018 7:38 AM CDT): Advised to get chest CT to r/o aortic aneurysm, to discuss with pcp. Encounter for long-term (current) use of medicat ions 01/31/2017 Assessment & Plan (05/28/2022 8:07 AM ADULT DAY CARE WORKER): Quant gold neg 12/2019 Hep B and [...] showed osteoporosis [facility] 08/2019---[facility] labs reveal positive anti-SR. MANAGER MARKETING antibody which is likely a false positive due to negative ASHLEY. Her father had psoriasis, pt changed from ra to PsA on 03/25/2020. Assessment & Plan (02/26/2022 8:16 AM ADULT DAY CARE WORKER): Quant gold neg 12/2019 Hep B and [...] showed osteoporosis [facility] 08/2019---[facility] labs reveal positive anti-SR. MANAGER MARKETING antibody which is likely a false positive [...] showed osteoporosis [facility] 08/2019---[facility] labs reveal positive anti-SR. MANAGER MARKETING antibody which is likely a false positive [...] showed osteoporosis [facility] 08/2019---[facility] labs reveal positive anti-SR. MANAGER MARKETING antibody which is likely a false positive [...] showed osteoporosis [facility] 08/2019---[facility] labs reveal positive anti-SR. MANAGER MARKETING antibody which is likely a false positive [...] showed osteoporosis [facility] 08/2019---[facility] labs reveal positive anti-SR. MANAGER MARKETING antibody which is likely a false positive due to negative ASHLEY. Her father had psoriasis, pt changed from ra to PsA on 03/25/2020. Assessment & Plan (06/28/2021 8:44 AM ADULT DAY CARE WORKER): Quant gold neg 12/2019 Hep B and [...] showed osteoporosis [facility] 08/2019---[facility] labs reveal positive anti-SR. MANAGER MARKETING antibody which is likely a false positive due to negative ASHLEY. Her father had psoriasis, pt changed from ra to PsA on 03/25/2020. Assessment & Plan (06/15/2021 10:44 AM ADULT DAY CARE WORKER): Quant gold neg 12/2019 Hep B and [...] showed osteoporosis [facility] 08/2019---[facility] labs reveal positive anti-SR. MANAGER MARKETING antibody which is likely a false positive due to negative ASHLEY. Her father had psoriasis, pt changed from ra to PsA on 03/25/2020. Assessment & Plan (06/09/2021 10:15 AM ADULT DAY CARE WORKER): Quant gold neg 12/2019 Hep B and [...] showed osteoporosis [facility] 08/2019---[facility] labs reveal positive anti-SR. MANAGER MARKETING antibody which is likely a false positive due to negative ASHLEY. Her father had psoriasis, pt changed from ra to PsA on 03/25/2020. Assessment & Plan (06/09/2021 8:29 AM ADULT DAY CARE WORKER): Quant gold neg 12/2019 Hep B and [...] showed osteoporosis [facility] 08/2019---[facility] labs reveal positive anti-SR. MANAGER MARKETING antibody which is likely a false positive due to negative ASHLEY. Her father had psoriasis, pt changed from ra to PsA on 03/25/2020. Assessment & Plan (05/04/2021 8:19 AM ADULT DAY CARE WORKER): Quant gold neg 12/2019 Hep B and [...] showed osteoporosis [facility] 08/2019---[facility] labs reveal positive anti-SR. MANAGER MARKETING antibody which is likely a false positive due to negative ASHLEY. Her father had psoriasis, pt changed from ra to PsA on 03/25/2020. Assessment & Plan (03/31/2021 9:20 AM ADULT DAY CARE WORKER): Quant gold neg 12/2019 Hep B and [...] showed osteoporosis [facility] 08/2019---[facility] labs reveal positive anti-SR. MANAGER MARKETING antibody which is likely a false positive [...] showed osteoporosis [facility] 08/2019---[facility] labs reveal positive anti-SR. MANAGER MARKETING antibody which is likely a false positive [...] showed osteoporosis [facility] 08/2019---[facility] labs reveal positive anti-SR. MANAGER MARKETING antibody which is likely a false positive [...] showed osteoporosis [facility] 08/2019---[facility] labs reveal positive anti-SR. MANAGER MARKETING antibody which is likely a false positive [...] showed osteoporosis [facility] 08/2019---[facility] labs reveal positive anti-SR. MANAGER MARKETING antibody which is likely a false positive due to negative ASHLEY. Her father had psoriasis, pt changed from ra to PsA on 03/25/2020. Assessment & Plan (06/03/2020 2:56 PM ADULT DAY CARE WORKER): Quant gold neg 12/2019 Hep B and [...] showed osteoporosis [facility] 08/2019---[facility] labs reveal positive anti-SR. MANAGER MARKETING antibody which is likely a false positive due to negative ASHLEY. Her father had psoriasis, pt changed from ra to PsA on 03/25/2020. Assessment & Plan (03/25/2020 3:03 PM ADULT DAY CARE WORKER): Quant gold neg 12/2019 HLA B27 negative [...] showed osteoporosis [facility] 08/2019---[facility] labs reveal positive anti-SR. MANAGER MARKETING antibody which is likely a false positive due to negative ASHLEY. Her father had psoriasis, pt changed from ra to PsA on 03/25/2020. Assessment & Plan (03/24/2020 7:28 AM ADULT DAY CARE WORKER): Quant gold neg 12/2019 HLA B27 negative [...] showed osteoporosis [facility] 08/2019---[facility] labs reveal positive anti-SR. MANAGER MARKETING antibody which is likely a false positive [...] showed osteoporosis [facility] 08/2019---[facility] labs reveal positive anti-SR. MANAGER MARKETING antibody which is likely a false positive [...] showed osteoporosis [facility] 08/2019---[facility] labs reveal positive anti-SR. MANAGER MARKETING antibody which is likely a false positive [...] showed osteoporosis [facility] 08/2019---[facility] labs reveal positive anti-SR. MANAGER MARKETING antibody which is likely a false positive [...] showed osteoporosis [facility] 08/2019---[facility] labs reveal positive anti-SR. MANAGER MARKETING antibody which is likely a false positive [...] showed osteoporosis [facility] 08/2019---[facility] labs reveal positive anti-SR. MANAGER MARKETING antibody which is likely a false positive [...] osteoporosis Assessment & Plan (04/20/2019 4:59 PM ADULT DAY CARE WORKER): Quant gold neg 10/2018. TPMT nl 17 [...] 01/31/2017 Assessment & Plan (05/28/2022 8:05 AM ADULT DAY CARE WORKER): Images from the original note were not included. Had orencia infusion 05/02/2022. Continue orencia monotherapy. Off arava due to lipase elevation. Seeing gi at [facility] now. [place] and egd utd and nl in past year per pt. Had a nl pancreatic US recently with gi. Past serologies: [facility] panel 08/2019---labs reveal positive anti-SR. MANAGER MARKETING antibody which is likely a false positive due to negative ASHLEY. RF neg but has a possible family hx of psoriatic arthritis (father) so if she develops psoriasis diagnosis will change to psoriatic arthritis. Rt hand US 09/2019 showed: F/u 1 month. Assessment & Plan (02/26/2022 12:12 PM ADULT DAY CARE WORKER): Images from the original note were not included. High cdai. Her orencia is scheduled tomorrow. Continue orencia monotherapy. Off arava due to lipase elevation. Seeing gi at [facility] now. [place] and egd utd and nl in past year per pt. Had a nl pancreatic US recently with gi. She could be flaring up since her orencia is due tomorrow, overall she still feels that it is helping her joints. Past serologies: [facility] panel 08/2019---labs reveal positive anti-SR. MANAGER MARKETING antibody which is likely a false positive [...] no complications or infections. Seeing gi at [facility] now for her elevated lipase. [place] and egd utd and nl in past year per pt. If labs stable will restart low dose arava 10mg po every day. To stay off orencia until recovered from rt knee surgery. Past serologies: [facility] panel 08/2019---labs reveal positive anti-SR. MANAGER MARKETING antibody which is likely a false positive [...] orencia is scheduled tomorrow. Seeing gi at [facility] now. [place] and egd utd and nl in past year per pt. Due to burden of dz will give her a short course of oral prednisone. Discussed risks and se of systemic steroids. Past serologies: [facility] panel 08/2019---labs reveal positive anti-SR. MANAGER MARKETING antibody which is likely a false positive [...] orencia is scheduled tomorrow. Seeing gi at [facility] now. [place] and egd utd and nl in past year per pt. Due to burden of dz will give her a short course of oral prednisone. Discussed risks and se of systemic steroids. Past serologies: [facility] panel 08/2019---labs reveal positive anti-SR. MANAGER MARKETING antibody which is likely a false positive [...] gi dr arias for her pancreatitis . [place] and egd utd and nl in past year per pt. Seen with dr woodruff today. Past serologies: [facility] panel 08/2019---labs reveal positive anti-SR. MANAGER MARKETING antibody which is likely a false positive due to negative ASHLEY. RF neg but has a possible family hx of psoriatic arthritis (father) so if she develops psoriasis diagnosis will change to psoriatic arthritis. Rt hand US 09/2019 showed: F/u 1 month. Assessment & Plan (06/28/2021 10:22 AM ADULT DAY CARE WORKER): Images from the original note were not [...] Past serologies: [facility] panel 08/2019---labs reveal positive anti-SR. MANAGER MARKETING antibody which is likely a false positive due to negative ASHLEY. RF neg but has a possible family hx of psoriatic arthritis (father) so if she develops psoriasis diagnosis will change to psoriatic arthritis. Rt hand US 09/2019 showed: F/u 1 month. Assessment & Plan (06/15/2021 10:46 AM ADULT DAY CARE WORKER): Images from the original note were not [...] Past serologies: [facility] panel 08/2019---labs reveal positive anti-SR. MANAGER MARKETING antibody which is likely a false positive due to negative ASHLEY. RF neg but has a possible family hx of psoriatic arthritis (father) so if she develops psoriasis diagnosis will change to psoriatic arthritis. Rt hand US 09/2019 showed: F/u 1 month. Assessment & Plan (06/09/2021 10:16 AM ADULT DAY CARE WORKER): Images from the original note were not [...] Past serologies: [facility] panel 08/2019---labs reveal positive anti-SR. MANAGER MARKETING antibody which is likely a false positive due to negative ASHLEY. RF neg but has a possible family hx of psoriatic arthritis (father) so if she develops psoriasis diagnosis will change to psoriatic arthritis. Rt hand US 09/2019 showed: F/u 1 month. Assessment & Plan (06/09/2021 8:29 AM ADULT DAY CARE WORKER): Images from the original note were not [...] Past serologies: [facility] panel 08/2019---labs reveal positive anti-SR. MANAGER MARKETING antibody which is likely a false positive due to negative ASHLEY. RF neg but has a possible family hx of psoriatic arthritis (father) so if she develops psoriasis diagnosis will change to psoriatic arthritis. Rt hand US 09/2019 showed: F/u 1 month. Assessment & Plan (05/05/2021 10:11 PM ADULT DAY CARE WORKER): Images from the original note were not [...] Past serologies: [facility] panel 08/2019---labs reveal positive anti-SR. MANAGER MARKETING antibody which is likely a false positive due to negative ASHLEY. RF neg but has a possible family hx of psoriatic arthritis (father) so if she develops psoriasis diagnosis will change to psoriatic arthritis. Rt hand US 09/2019 showed: F/u 1 month. Assessment & Plan (03/31/2021 9:24 AM ADULT DAY CARE WORKER): Images from the original note were not [...] Past serologies: [facility] panel 08/2019---labs reveal positive anti-SR. MANAGER MARKETING antibody which is likely a false positive [...] Past serologies: [facility] panel 08/2019---labs reveal positive anti-SR. MANAGER MARKETING antibody which is likely a false positive [...] Past serologies: [facility] panel 08/2019---labs reveal positive anti-SR. MANAGER MARKETING antibody which is likely a false positive [...] Past serologies: [facility] panel 08/2019---labs reveal positive anti-SR. MANAGER MARKETING antibody which is likely a false positive due to negative ASHLEY. RF neg but has a possible family hx of psoriatic arthritis (father) so if she develops psoriasis diagnosis will change to psoriatic arthritis. Rt [facility] 09/2019 showed: Assessment & Plan (07/18/2020 8:24 AM CDT): Images from the original note were not included. High cdai. On imuran to 100mg bid and Stelara. Discussed potential se and risks of stelara tx. To see her gi for her diarrhea, she is due for colonoscopy. Continue imuran. To get covid 19 vaccine when available. Past serologies: [facility] panel 08/2019---labs reveal positive anti-SR. MANAGER MARKETING antibody which is likely a false positive due to negative ASHLEY. RF neg but has a possible family hx of psoriatic arthritis (father) so if she develops psoriasis diagnosis will change to psoriatic arthritis. Rt [facility] 09/2019 showed: Assessment & Plan (06/03/2020 5:27 PM ADULT DAY CARE WORKER): Images from the original note were not [...] Past serologies: [facility] panel 08/2019---labs reveal positive anti-SR. MANAGER MARKETING antibody which is likely a false positive due to negative ASHLEY. RF neg but has a possible family hx of psoriatic arthritis (father) so if she develops psoriasis diagnosis will change to psoriatic arthritis. Rt [facility] 09/2019 showed: Assessment & Plan (03/25/2020 3:01 PM ADULT DAY CARE WORKER): Images from the original note were not [...] Past serologies: [facility] panel 08/2019---labs reveal positive anti-SR. MANAGER MARKETING antibody which is likely a false positive due to negative ASHLEY. RF neg but has a possible family hx of psoriatic arthritis (father) so if she develops psoriasis diagnosis will change to psoriatic arthritis. Rt [facility] 09/2019 showed: Assessment & Plan (03/24/2020 7:29 AM ADULT DAY CARE WORKER): Images from the original note were not included. Bernardino zapien Wants to go back to sq orencia, gave pt 1 mo of samples and will start approval. Can't come in for iv orencia, her dad is on hospice. Increase imuran to 100mg bid, check cbc/cmp in 2 weeks and f/u in 1month. Past serologies: [facility] panel 08/2019---labs reveal positive anti-SR. MANAGER MARKETING antibody which is likely a false positive due to negative ASHLEY. RF neg but has a possible family hx of psoriatic arthritis (father) so if she develops psoriasis diagnosis will change to psoriatic arthritis. Rt [facility] 09/2019 showed: Assessment & Plan (02/19/2020 11:34 AM CDT): Bernardino zapien Wants to go back to sq orencia, gave pt 1 mo of samples and will start approval. Can't come in for iv orencia, her dad is on hospice. Increase imuran to 100mg bid, check cbc/cmp in 2 weeks and f/u in 1month. Past serologies: [facility] panel 08/2019---labs reveal positive anti-SR. MANAGER MARKETING antibody which is likely a false positive due to negative ASHLEY. RF neg but has a possible family hx of psoriatic arthritis (father) so if she develops psoriasis diagnosis will change to psoriatic arthritis. Rt [facility] 09/2019 showed: Assessment & Plan (01/22/2020 [...] Past serologies: [facility] panel 08/2019---labs reveal positive anti-SR. MANAGER MARKETING antibody which is likely a false positive [...] every day. [facility] panel 08/2019---labs reveal positive anti-SR. MANAGER MARKETING antibody which is likely a false positive due to negative ASHLEY. Otherwise labs look good. No evidence of a new autoimmune connective tissue disease. Cont orencia sq and imuran 100mg po qhs. [place] better on iv orencia, will change from [...] since resolved. [facility] panel 08/2019---labs reveal positive anti-SR. MANAGER MARKETING antibody which is likely a false positive [...] of orencia. [facility] panel 08/2019---labs reveal positive anti-SR. MANAGER MARKETING antibody which is likely a false positive [...] of orencia. [facility] panel 08/2019---labs reveal positive anti-SR. MANAGER MARKETING antibody which is likely a false positive [...] wnl. Assessment & Plan (04/23/2019 1:46 PM ADULT DAY CARE WORKER): High cdai. On orencia IV but has [...] citrate. Assessment & Plan (06/03/2020 2:56 PM ADULT DAY CARE WORKER): Multiple kidney stones for over 10 yrs, [...] on file Legal Sex Female 9:24 PM ADULT DAY CARE WORKER Gender Identity Female 08/14/2022 11:32 AM [...] HEPATITIS C AB Routine 06/29/2015 2:43 PM ADULT DAY CARE WORKER from Last 3 Months or Most Recently Relevant to Health Maintenance Results * ThinPrep Pap with HPV (12/24/2018 3:41 PM CDT) 12/24/2018 3:41 PM CDT 12/25/2018 8:54 AM CDT Narrative [facility] - 12/26/2018 2:53 PM CDT [facility] Department of Pathology [address] [place] [id number] Final Report with Addendum Patient Name: JULIAN SAUER Address: [address] [place] [address] Gender: F : 1975 (Age: 43) Service: Laboratory Location: Lab [facility] #: [id number] Patient Type: Ref Lab Taken: 12/24/2018 Received: 12/25/2018 Accessioned:: 12/26/2018 Reported: 12/26/2018 Physician(s): Curtis Oseguera M.D. [facility] Diagnosis: Source of Specimen: SCREENING IMAGED [...] by the Surgical Pathology Department at [facility] as part of an ongoing quality control microbiologist program and in compliance with federally mandated [...] characteristics determined by the Surgical Pathology Department [facility]. It has not been cleared or approved by the U. S. Food and Drug Administration. Curtis Oseguera MD LAB CYTOLOGY ORDERABLES Final Result Performing Organization Address [facility]/ZIP Co de Phone Number [address] [phone] * Serum Hepatitis C ab (06/29/2015 2:43 PM ADULT DAY CARE WORKER) HCV ab Non-Reacti ve Non-Reacti ve HISTORICAL RESULTS Serum 06/29/2015 2:43 PM ADULT DAY CARE WORKER Miriam VALLE LAB BLOOD ORDERAB LES Final Result Performing Organization Address City/[facility] Co de Phone Number HISTORICAL RESULTS from Last 3 Months or Most Recently Relevant to Health Maintenance Insurance [facility] [employer] [place] [employer] [place] [employer] [place] Care Teams Industrial Psychology Professor Relationship Specialty Start Date End Date Bhupinder Tobias MD [address] [place] [address] PCP - General Internal Medicine 06/03/20 Cash Woodruff III, MD [address] [place] [address] Rheumatology 04/12/17 Jorge Aguiar MD [address] [place] [address] Consulting Physician Urology 11/10/20 Khoa Arias MD [address] [place] [address] Referring Physician Gastroenterology 03/20/21
--- NOTE | 2024-09-28 08:05 | ED.ABDPAIN ---
HPI - Abdominal Pain General Chief Complaint: Abdominal Pain Stated Complaint: LLQ abdominal pain Time Seen by Provider: 09/28/24 07:09 Source: patient, RN notes reviewed and old records reviewed Mode of arrival: ambulatory History of Present Illness HPI narrative: THis is a 49 year old female who presents for evaluation of left abdominal pain. She states she has been having constant pain for 3 weeks. Her pain has been located to her left mid abdomen and she reports her pain intermittently spikes. SHe describes pain has dull ache. She reports nausea, vomiting and constipation. SHe is unsure if she had a fever but she reports feeling hot this morning. She reports her urine is dark but she denies gross blood or dysuria. She tried hydrocodone for pain but her pain did not improve. She states taking ibuprofen 800 mg helped her pain. She reports history of oophorectomy, hysterectomy, and she has had diverticulitis and kidney stone in the past. She rates her pain 9/10. Related Data Home Medications ?Medication ?Instructions ?Recorded ?Confirmed ?Last Taken ?Type bupropion HCl 300 mg 24 hr tablet, 300 mg PO DAILY 05/02/20 09/04/24 06/11/24 History extended release (Wellbutrin XL) potassium citrate 15 mEq (1,620 1,620 mg PO BID 05/02/20 09/04/24 06/11/24 History mg) tablet,extended release propranolol 10 mg tablet 10 mg PO QAM 05/02/20 09/04/24 06/12/24 History trazodone 100 mg tablet 100 mg PO HS 05/02/20 09/04/24 06/11/24 History alprazolam 0.5 mg tablet 0.5 mg PO TID PRN Anxiety 09/15/20 09/04/24 06/11/24 History cholecalciferol (vitamin D3) 125 5,000 unit PO DAILY 09/15/20 09/04/24 06/11/24 History mcg (5,000 unit) tablet (Vitamin D3) cyanocobalamin (vitamin B-12) 1,000 mcg PO DAILY 09/15/20 09/04/24 06/11/24 History 1,000 mcg tablet duloxetine 30 mg capsule,delayed 30 mg PO DAILY 04/29/24 09/04/24 06/11/24 History release Allergies Allergy/AdvReac Type Severity Reaction Status Date / Time No Known Allergies Allergy Verified 09/28/24 06:32 Review of Systems Gastrointestinal: Gastrointestinal: Reports abdominal pain, Reports constipation, Reports nausea and Reports vomiting Genitourinary: Genitourinary: Denies hematuria and Denies nocturia Musculoskeletal: Musculoskeletal: Reports back pain PMFSH Past Medical History Medical History Aspiration into airway Colon cancer screening Elevated lipase Decreased appetite LLQ pain Arthritis Osteoporosis Psoriasis Excessive thirst UTI (urinary tract infection) IBS (irritable bowel syndrome) Atrial tachycardia Hoarseness Short-term memory loss Chills History of kidney stones Abdominal pain in female Abnormal serum lipase level Abnormal weight gain Acute cystitis without hematuria Acute diverticulitis Acute non-recurrent pansinusitis Acute shoulder pain Adult idiopathic generalized osteoporosis Age-related osteoporosis with current pathological fracture, unspecified ankle and foot, initial encounter for fracture Anemia Anxiety Arthralgia Arthritis of both knees Bilateral tinnitus Body mass index (bmi) 39.0-39.9, adult (01/12/19) Bone spur of left foot Chronic migraine Chronic narcotic use Chronic pain syndrome Cyst of ovary Diarrhea Dietary counseling and surveillance (08/25/15) Diverticulitis of large intestine without perforation or abscess Diverticulosis of intestine, part unspecified, without perforation or abscess with bleeding Duodenal ulcer Dysphagia Dysuria Meredith-Danlos syndrome Epigastric pain Establishing care with new doctor, encounter for Fatigue Fear of flying Fibromyalgia Gastric ulcer Gastroesophageal reflux disease Generalized abdominal pain Generalized anxiety disorder History of dislocation of knee Hyperextension deformity of knee Hyperthyroidism Hypokalemia Hypovitaminosis D Immunosuppressed status Impingement syndrome of right shoulder Irregular menses 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 syndrome with constipation 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 diarrhea 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 Low TSH level Low back pain Luteal cystic ovary disease Microscopic hematuria Migraine, unspecified, not intractable, without status migrainosus Multinodular goiter Muscle weakness of lower extremity Musculoskeletal pain Nausea Nephrolithiasis Nonintractable migraine Osteoarthritis of spine with radiculopathy, lumbar region Other chronic pain Overweight (11/22/16) PUD (peptic ulcer disease) Pain in both hands Pain of both hip joints Pain of left heel Pneumonia due to infectious organism Polyuria Prepatellar bursitis of both knees Prepatellar bursitis, left knee Rheumatoid arthritis of multiple sites with negative rheumatoid factor Rheumatoid arthritis of unspecified site with involvement of other organs and systems Right lower quadrant abdominal pain Swelling Swelling of finger joint of left hand Thyroid nodule Urinary symptom or sign Urinary tract infection without hematuria Weight loss Yeast vaginitis Surgical History Surgical History History of hysterectomy 2022 History of knee surgery ANUSHA reconstruction. History of lithotripsy x4. Previous section History of colonoscopy History of tonsillectomy Family History Family History Mother Patient's mother is in good health Family history of arthritis Father Patient's father is in good health Family history of alcoholism Family history of arthritis Family history of obesity Family history of chronic obstructive pulmonary disease Sibling Patient's sister is in good health Patient's brother is in good health Grandparent Family history of Alzheimer's disease Family history of lung cancer Other Family history of attention deficit hyperactivity disorder (ADHD) Social History Social History Smoking packs per day: 0.5 Smoking cigarettes per day: 10.0 Years smoked: 20 Smoking pack-years: 10.00 Smoking status: Former smoker Tobacco type: cigarettes Second hand tobacco smoke exposure: Yes Smoking end date: 06/04/12 Alcohol intake: current Drinks per week: 2 Alcohol use details: 2/MONTH Substance use: never Substance use type: does not use Other substance usage details: STOPPED GUMMIES MAY 2023 Do You Feel Safe in your Home?: Yes Lack of Transportation: No Lack of Food: Never True Current Housing: I Have Housing Concerned About Future Housing: No Difficulty Paying Gas/Electric Bills: No Difficulty Paying for Meds: No Currently Unemployed: No Education: Bachelor's Degree Difficulty w/ Childcare or Family Care: No Living arrangements: with family Additional living arrangements comments: AND CHILDREN Occupation/Education: 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 Gender identity (if verbalized by the patient): Female Sexual Orientation (if Verbalized by the Patient): Straight or Heterosexual Spiritual care concerns: No Exam Const: General: no acute distress and alert Nutritional Appearance: well nourished and obese Orientation/consciousness: patient oriented x3 HENMT: Head: normal to inspection Eyes: EOM: EOMs intact bilaterally Resp: Effort & Inspection: normal respiratory effort Auscultation: clear to auscultation bilaterally Cardio: Rate: regular rate Rhythm: regular rhythm Heart sounds: no murmurs GI: GI Palp: Yes Soft to palpation and Yes Tenderness to palpation present (GI) (TTP LLQ, LUQ) Auscultation: Hypoactive bowel sounds present Other: voluntary guarding present Back/Spine/Pelvis: Back: no CVA tenderness Skin: General skin exam: normal color Rashes: no rashes Neuro: General: patient oriented x3 and moves all extremities Cranial nerves: Yes Nystagmus not present Extrem: General: normal to inspection Psych: Mental Status: mental status grossly normal Affect: normal affect Attitude: cooperative Course Reevaluation(s) Reevaluation #1: I Reviewed labs and CT with patient and . On her urine, I explained that it is contaminated sample with many squamous, 6-10 rbc and wbc and only trace LE. PAtient is agreeable to have urine culture run and she will follow up with urologist. Date: 09/28/24 Time: 10:40 Vital Signs Vital signs: Vital Signs Temperature 98.1 F 09/28/24 06:37 Pulse Rate 109 H 09/28/24 06:37 Respiratory Rate 20 09/28/24 06:37 Blood Pressure 141/101 H 09/28/24 06:37 Pulse Oximetry 100 09/28/24 06:37 Temperature 98.1 F 09/28/24 06:37 Pulse Rate 84 09/28/24 09:57 Respiratory Rate 20 09/28/24 09:57 Blood Pressure 118/82 09/28/24 09:57 Pulse Oximetry 98 09/28/24 09:57 MDM - Abdominal Pain MDM Narrative Medical decision making narrative: Patient presents with weeks of abdominal pain. labs and CT Abdomen/pelvis were ordered. Patient with given zofran 4 mg IV, Dilaudid 1 mg IV and LR 1 liter bolus. This helped to improve her pain. labs shows mildly elevated lipast 485. On review of records, this is chronically elevated. Her creatinine was mildly elevated. This should improve with IV fluid bolus that was given. Her wbc is normal. CT did not show any acute issues. I reviewed patient's labs were her as she had them pulled up on her ipad. She states she understands and will follow up with GI and urology. She agrees to follow up on urine culture and will hold off on antibiotics for now. Differential Diagnosis Differential diagnosis: Likely abdominal pain, acute appendicitis, calculus of kidney, constipation, diverticulitis, pancreatitis and small bowel obstruction Medical Records Attestation: I reviewed the patient's medical records. Lab Data Attestation: I reviewed the patient's lab results. 09/28/24 06:45 09/28/24 06:45 Labs: Lab Results 09/28/24 09/28/24 Range/Units 06:44 06:45 WBC 5.0 (4.5-10.0) K/mm3 RBC 5.35 (4.2-5.4) M/mm3 Hgb 13.4 (12.0-15.0) g/dL Hct 44.5 (37.0-47.0) % MCV 83.2 (80-100) fl MCH 25.0 L (26-34) pg MCHC 30.1 L (32-36) g/dl RDW 16.4 H (11.5-14.5) % Plt Count 311 (150-375) k/mm3 MPV 8.9 (7.4-10.4) fl Immature Gran % (Auto) 1.0 H (0-0.5) % Neut % (Auto) 50.5 (45.5-73.1) % Lymph % (Auto) 39.1 (18.3-44.2) % [place] % (Auto) 5.0 (2.6-8.5) % Eos % (Auto) 2.8 (0-4.4) % Baso % (Auto) 1.6 H (0.2-1.2) % Lymph # (Auto) 1.94 (0.9-3.2) K/mm3 [place] # (Auto) 0.3 (0.1-0.6) K/mm3 Eos # (Auto) 0.1 (0-0.3) K/mm3 Baso # (Auto) 0.1 (0.0-0.1) K/mm3 Abs Immat Gran (auto) 0.05 H (0.00-0.031) K/mm3 Absolute Neuts (auto) 2.5 (1.3-6.7) K/mm3 Absolute Nucleated RBC 0.000 (0.0-0.012) K/mm3 Nucleated RBC % 0.0 (0.0-0.2) % PT 13.3 (11.1-14.7) Seconds INR 1.0 APTT 28.4 (22.3-36.8) Seconds Sodium 140 (137-145) mmol/L Potassium 3.4 (3.4-5.0) mmol/L Chloride 103 (98-107) mmol/L Carbon Dioxide 22 (22-30) mmol/L Anion Gap 15 H (4-12) mmol/L BUN 13 (7-17) mg/dL Creatinine 1.25 H (0.7-1.0) mg/dL Estim Creat Clear Calc 54 ml/min Estimated GFR 45 L (59 - ) Glucose 118 H (65-110) mg/dL Calcium 9.6 (8.4-10.2) mg/dL Total Bilirubin 0.6 (0.2-1.3) mg/dL AST 77 H (14-36) U/L ALT 85 H (6-35) U/L Alkaline Phosphatase 86 (38-126) U/L Total Protein 8.2 (6.3-8.2) g/dL Albumin 4.7 (3.5-5.1) g/dL Lipase 485 H (23-300) U/L Urine Color Dark yellow (Yellow) Urine Appearance Cloudy H (Clear) Urine pH 5.5 (5.0-9.0) Ur Specific [place] 1.032 (1.001-1.035) Urine Protein Trace (Negative) mg/dL Urine Glucose (UA) Negative (Negative) mg/dL Urine Ketones Trace H (Negative) mg/dL Ur Blood (Man) Trace (Negative) Urine Nitrate Negative (Negative) Urine Bilirubin 1+ H (Negative) Urine Urobilinogen 1.0 (<2.0) mg/dL Add Ur Microanalysis Reviewed Leukocyte Esterase Rfl Trace H (Negative) KAERL/UL Urine RBC 6-10 H (0-2) /hpf Urine WBC 6-10 H (0-3) /hpf Ur Squamous Epith Cells Many H (Few) /hpf Urine Bacteria 2+ H /hpf Urine Casts 3-5 Imaging Data Radiologist's impression: ITS Impressions Abdomen/Pelvis CT 09/28/24 08:22 IMPRESSION: 1. No acute intra-abdominal/pelvic process. 2. Diverticulosis. Bilateral nonobstructing nephrolithiasis. ECG Data EKG #1: Attestation: I personally reviewed and interpreted this ECG as follows: ECG completion date: 09/28/24 ECG completion time: 07:47 normal rate, sinus rhythm, no ST changes, NL axis and no acute changes Discharge Plan Discharge Clinical Impression: Bilateral nephrolithiasis Patient Disposition: Home Condition: Stable Instructions: Antibiotic Form, Kidney Stones (ED), Abdominal Pain (ED) Additional Instructions: Follow up with your urologist and audit consultant. Your primary care provider or urologist can follow up on your urine culture Patient Language: Greek Prescriptions: New ondansetron 4 mg tablet,disintegrating 4 mg PO Q8H PRN (Reason: nausea and vomiting) Qty: 10 0RF No Action propranolol 10 mg tablet 10 mg PO QAM bupropion HCl [Wellbutrin XL] 300 mg tablet extended release 24 hr 300 mg PO DAILY trazodone 100 mg tablet 100 mg PO HS potassium citrate 15 mEq tablet extended release 1,620 mg PO BID metoclopramide HCl [Reglan] 10 mg tablet See Rx Instructions PO .COMPLEX Qty: 30 11RF Rx Instructions: Take 10 mg PO before dinner alprazolam 0.5 mg tablet 0.5 mg PO TID PRN (Reason: Anxiety) cyanocobalamin (vitamin B-12) 1,000 mcg Tablet 1,000 mcg PO DAILY cholecalciferol (vitamin D3) [Vitamin D3] 125 mcg (5,000 unit) Tablet 5,000 unit PO DAILY duloxetine 30 mg capsule,delayed release(DR/EC) 30 mg PO DAILY Patient Comments: Says takes at HS ketorolac 10 mg tablet 10 mg PO Q6H 5 Days Qty: 20 0RF Patient Comments: No longer taking pantoprazole 40 mg tablet,delayed release (DR/EC) See Rx Instructions .ROUTE .COMPLEX Qty: 60 11RF Dose Instruction: TAKE 1 TABLET BY MOUTH TWICE DAILY Rx Instructions: TAKE 1 TABLET BY MOUTH TWICE DAILY dicyclomine 20 mg tablet 20 mg PO TID PRN (Reason: abdominal pain) Qty: 120 4RF lactulose 20 gram/30 mL solution 20 g PO BID Qty: 1200 0RF sucralfate 1 gram tablet See Rx Instructions .ROUTE .COMPLEX Qty: 120 0RF Dose Instruction: TAKE 1 TABLET BY MOUTH BEFORE MEALS AND AT BEDTIME Rx Instructions: TAKE 1 TABLET BY MOUTH BEFORE MEALS AND AT BEDTIME sucralfate 100 mg/mL suspension See Rx Instructions .ROUTE .COMPLEX Qty: 420 0RF Dose Instruction: TAKE 10 ML BY MOUTH FOUR TIMES DAILY BEFORE MEALS AND AT BEDTIME Rx Instructions: TAKE 10 ML BY MOUTH FOUR TIMES DAILY BEFORE MEALS AND AT BEDTIME sumatriptan succinate 6 mg/0.5 mL pen injector See Rx Instructions .ROUTE .COMPLEX Qty: 2 5RF Dose Instruction: INJECT 0.5 ML UNDER SKIN ONCE FOR HEADACH, MAY REPEAT DOSE ONCE IN 1 HOUR IF NOT RELIEVED Rx Instructions: INJECT 0.5 ML UNDER SKIN ONCE FOR HEADACH, MAY REPEAT DOSE ONCE IN 1 HOUR IF NOT RELIEVED ondansetron HCl 4 mg tablet 4 - 8 mg PO Q8H PRN (Reason: nausea and vomiting) Qty: 20 0RF baclofen 10 mg tablet 10 mg PO BID Qty: 30 0RF Wegovy 1 mg/0.5 mL pen injector 1 mg subcut WEEKLY Qty: 2 2RF Rx Instructions: administer weeks 9 through 12 of therapy hydrocodone-acetaminophen 5-325 mg tablet 1 tablet PO Q8H PRN (Reason: pain) Qty: 75 0RF Follow-up/Referrals: Jose Zhang DO [Primary Care Provider] -
[2024-09-28 08:13] LABS: Prothrombin Time 13.3 Seconds (11.1-14.7)
[2024-09-28 08:17] LABS: Partial Thromboplastin Time 28.4 Seconds (22.3-36.8)
[2024-09-28 09:57] VITALS: BP 118/82; PULSE 84; RESP 20; O2SAT 98
--- NOTE | 2024-09-28 09:59 | PC.NURSE ---
Pt pain7/10 EDP made aware, no new orders.
--- NOTE | 2024-09-28 10:26 | PCCCNOTE ---
Introduced Care coordination to the pt and her spouse at bedside. Pt was sitting up on the stretcher while in the ED department. Stated they were just waiting on test results at this time. Denied having any concerns with their care or having any Care Coordination needs at this time. Stated registration hadn't been to see them yet however they had been seen at [facility] before and are well known to the facility. Did update registration this family would like to see them soon to share their contact/insurance information.-beto
== END 2024-09-28 10:58 | disposition home or self-care (01) ==
PROVIDERS: Emergency Medicine; Emergency Provider General Practice; PCP Internal Medicine
DX: N20.0 Calculus of kidney (principal); L40.9 Psoriasis, unspecified; G89.4 Chronic pain syndrome; E55.9 Vitamin D deficiency, unspecified; E66.3 Overweight; Z68.33 Body mass index [BMI] 33.0-33.9, adult; Q79.60 Ehlers-Danlos syndrome, unspecified; M81.0 Age-related osteoporosis without current pathological fracture; M17.0 Bilateral primary osteoarthritis of knee; M79.7 Fibromyalgia; M06.9 Rheumatoid arthritis, unspecified; K58.1 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 syndrome with constipation; F41.9 Anxiety disorder, unspecified; Z87.440 Personal history of urinary (tract) infections; Z87.442 Personal history of urinary calculi; Z87.11 Personal history of peptic ulcer disease; Z87.01 Personal history of pneumonia (recurrent); Z86.2 Personal history of diseases of the blood and blood-forming organs and certain disorders involving the immune mechanism; Z87.891 Personal history of nicotine dependence; Z90.710 Acquired absence of both cervix and uterus; K57.90 Diverticulosis of intestine, part unspecified, without perforation or abscess without bleeding; Z79.899 Other long term (current) drug therapy
CPT/HCPCS: 36415; 74177; 80053; 81001; 83690; 85025; 85610; 85730; 87086; 93005; 96361; 96374; 96375; 99284; J1171; J2405; J7120; Q9967

== ENCOUNTER 2024-10-30 15:42 | Emergency (ER) | payer OTHER, SELFPAY ==
--- NOTE | ~2024-10-30 | CT_ITS ---
CT abdomen pelvis w con Ordering provider: Shabana Wayne PA-C History: 49 years Female with . LUQ abd pain . Comparison: September 28, 2024 Technique: CT abdomen and pelvis with IV and without oral contrast. Automated exposure control and it erative reconstruction technique were employed. The dose-length product was 1149.89 mGy-cm. 100 mL Om nipaque 350 was given IV. Findings: VISUALIZED LOWER CHEST: Dependent atelectatic changes. Trace of pericardial effusion. UPPER ABDOMINAL ORGANS: Liver: Mild fat infiltration. Enhancing lesions in the right lobe of the liver are unchanged from pre vious examination. Gallbladder: Contracted. Spleen: Normal. Calcified granulomas. Stomach/duodenum: Normal. Pancreas: Normal. Adrenals: Normal. Kidneys: Multiple cysts in the left kidney with the largest measures 2.8 cm. Hyperdense areas are see n in both kidneys most likely early excretion of contrast. Stones are possible. Tiny cysts are also s een in the right kidney. PELVIC ORGANS: The bladder is underfilled with thickened wall. Evaluation for cystitis advised. BOWEL AND MESENTERY: Colon: Mild no evidence of diverticulitis. Fecal material is loaded in the colon.. Normal appendix. Small Bowel: Normal. No obstruction. Peritoneum/mesentery: No free air or free fluid. No mesenteric lymphadenopathy. RETROPERITONEUM: Normal aorta. No retroperitoneal lymphadenopathy. MUSCULOSKELETAL: Superficial soft tissues: The superficial soft tissues are normal. Bones: Age appropriate degenerative changes of the spine. Bilateral sacroiliacs. IMPRESSION: 1. No evidence of appendicitis, diverticulitis or intestinal 2. Enhancing lesions in the liver unchanged from previous examination. Obstruction. 3. Constipation. 4. Thickened wall of the urinary bladder. Evaluation for cystitis advised. 5. Bilateral renal cysts. 6. multiple hyperdense areas in both kidneys which may indicate early contrast excretion. Stones are not excluded. Follow-up advised. 7. Fat infiltration of the liver. 8. Trace of pericardial effusion. Reviewed, dictated and finalized at location A. IMPRESSION: 1. No evidence of appendicitis, diverticulitis or intestinal 2. Enhancing lesions in the liver unchanged from previous examination. Obstruc tion. 3. Constipation. 4. Thickened wall of the urinary bladder. Evaluation for cystitis advised. 5. Bilateral renal cysts. 6. multiple hyperdense areas in both kidneys which may indicate early contrast excretion. Stones are not excluded. Follow-up advised. 7. Fat infiltration of the liver. 8. Trace of pericardial effusion.
--- OUTSIDE RECORDS SUMMARY | 2024-10-30 15:46 | XMS_ITS | Referral Summary ---
Author Organization [id number] Address [address] [place] [address] Phone Care Team Providers Care Hostess Cashier Name Role Phone Kumar CARRILLO MD, John J. Unavailable Bhupinder Tobias MD Primary Care Provider [phone] Jorge Aguiar MD Unavailable [phone] Khoa Arias MD Unavailable [phone] Allergies No known active allergies Medications SUMAtriptan [...] (08/30/2021): Added automatically from request for surgery [id number] Abdominal pain 03/31/2021 Assessment & Plan (06/28/2021 10:08 AM [facility] [employer] [place]): Recently dx with mild pancreatitis. Needs lipase/amylase rechecked. Still has some upper abd pain. Advised pt to f/u with GI also. Assessment & Plan (06/19/2021 8:52 AM [employer] [employer] [place]): Had abd pain early this month, check amyl/lip and ua. Pain has resolved. Assessment & Plan (05/05/2021 10:13 PM [employer] [employer] [place]): Having abd pain, bloating, constipation. On meds for IBS and also using suppositories to have BM. Incidental findings of mesenteric fat stranding (adenitis or panniculitis) on abd CT. Awaiting further eval by Dr. Arias. Assessment & Plan (03/31/2021 8:44 AM [employer] [employer] [place]): Elevated lipase. Imuran stopped. Pt advised to [...] 04/23/2019 Assessment & Plan (03/24/2020 7:29 AM [employer] [employer] [place]): Normal serum immunoglobulins. Assessment & Plan (01/21/2020 [...] immunoglobulins. Assessment & Plan (04/23/2019 1:46 PM [employer] [employer] [place]): Check serum immunoglobulins. Osteoporosis without current pathological fractu re 09/18/2018 Assessment & Plan (08/10/2021 8:09 AM CDT): bds checked by pcp in past, is taking ca and vit d and pcp checked vit D and PTH per pt was wnl. Her pcp started her on alendronate 70mg po qweek. Taking ca + vit d 1200mg qd. Assessment & Plan (06/15/2021 10:46 AM [employer] [employer] [place]): bds checked by pcp in past, is taking ca and vit d and pcp checked vit D and PTH per pt was wnl. Her pcp started her on alendronate 70mg po qweek. Taking ca + vit d 1200mg qd. Assessment & Plan (06/09/2021 8:30 AM [employer] [employer] [place]): bds checked by pcp in past, is taking ca and vit d and pcp checked vit D and PTH per pt was wnl. Her pcp started her on alendronate 70mg po qweek. Taking ca + vit d 1200mg qd. Assessment & Plan (05/04/2021 8:19 AM [employer] [employer] [place]): bds checked by pcp in past, is [...] qd. Assessment & Plan (06/03/2020 7:38 AM [employer]): bds checked by pcp in past, is taking ca and vit d and pcp checked vit D and PTH per pt was wnl. Her pcp started her on alendronate 70mg po qweek. Taking ca + vit d 1200mg qd. Assessment & Plan (03/25/2020 8:34 AM [employer] [employer]): bds checked by pcp in past, is taking ca and vit d and pcp checked vit D and PTH per pt was wnl. Her pcp started her on alendronate 70mg po qweek. Taking ca + vit d 1200mg qd. Assessment & Plan (03/24/2020 7:29 AM [employer] [employer]): bds checked by pcp in past, is [...] qd. Assessment & Plan (04/20/2019 4:56 PM [employer]): bds checked by pcp in past, is [...] pcp. Assessment & Plan (06/03/2020 7:37 AM [employer] [place]): Was advised in past to get chest CT to r/o aortic aneurysm, to discuss with pcp. Assessment & Plan (03/25/2020 8:33 AM [employer] [place]): Was advised in past to get chest CT to r/o aortic aneurysm, to discuss with pcp. Assessment & Plan (03/24/2020 7:29 AM [employer] [place]): Was advised in past to get chest [...] pcp. Assessment & Plan (04/20/2019 4:57 PM [employer] [employer] [place]): Advised to get chest CT to r/o aortic aneurysm, to discuss with pcp. Assessment & Plan (10/31/2018 7:38 AM CDT): Advised to get chest CT to r/o aortic aneurysm, to discuss with pcp. Encounter for long-term (current) use of medicat ions 01/31/2017 Assessment & Plan (05/28/2022 8:07 AM [employer] [employer] [place]): Quant gold neg 12/2019 Hep B and [...] showed osteoporosis [facility] 08/2019---[facility] labs reveal positive anti-WAREHOUSE [employer] antibody which is likely a false positive due to negative ASHLEY. Her father had psoriasis, pt changed from ra to PsA on 03/25/2020. Assessment & Plan (02/26/2022 8:16 AM [employer] [employer] [place]): Quant gold neg 12/2019 Hep B and [...] showed osteoporosis [facility] 08/2019---[facility] labs reveal positive anti-WAREHOUSE [employer] antibody which is likely a false positive [...] showed osteoporosis [facility] 08/2019---[facility] labs reveal positive anti-WAREHOUSE [employer] antibody which is likely a false positive [...] showed osteoporosis [facility] 08/2019---[facility] labs reveal positive anti-WAREHOUSE [employer]ER antibody which is likely a false positive [...] showed osteoporosis [facility] 08/2019---[facility] labs reveal positive anti-WAREHOUSE [employer] antibody which is likely a false positive [...] showed osteoporosis [facility] 08/2019---[facility] labs reveal positive anti-WAREHOUSE [employer] antibody which is likely a false positive due to negative ASHLEY. Her father had psoriasis, pt changed from ra to PsA on 03/25/2020. Assessment & Plan (06/28/2021 8:44 AM [employer] [employer] [place]): Quant gold neg 12/2019 Hep B and [...] showed osteoporosis [facility] 08/2019---[facility] labs reveal positive anti-WAREHOUSE [employer] antibody which is likely a false positive due to negative ASHLEY. Her father had psoriasis, pt changed from ra to PsA on 03/25/2020. Assessment & Plan (06/15/2021 10:44 AM L[employer] [place]): Quant gold neg 12/2019 Hep B and [...] showed osteoporosis [facility] 08/2019---[facility] labs reveal positive anti-WAREHOUSE [employer] antibody which is likely a false positive due to negative ASHLEY. Her father had psoriasis, pt changed from ra to PsA on 03/25/2020. Assessment & Plan (06/09/2021 10:15 AM [employer] [employer] [place]): Quant gold neg 12/2019 Hep B and [...] showed osteoporosis [facility] 08/2019---[facility] labs reveal positive anti-WAREHOUSE [employer] antibody which is likely a false positive due to negative ASHLEY. Her father had psoriasis, pt changed from ra to PsA on 03/25/2020. Assessment & Plan (06/09/2021 8:29 AM [employer] [employer] [place]): Quant gold neg 12/2019 Hep B and [...] showed osteoporosis [facility] 08/2019---[facility] labs reveal positive anti-WAREHOUSE [employer]ER antibody which is likely a false positive due to negative ASHLEY. Her father had psoriasis, pt changed from ra to PsA on 03/25/2020. Assessment & Plan (05/04/2021 8:19 AM [employer] [employer] [place]): Quant gold neg 12/2019 Hep B and [...] showed osteoporosis [facility] 08/2019---[facility] labs reveal positive anti-WAREHOUSE [employer]ER antibody which is likely a false positive due to negative ASHLEY. Her father had psoriasis, pt changed from ra to PsA on 03/25/2020. Assessment & Plan (03/31/2021 9:20 AM [employer] [employer] [place]): Quant gold neg 12/2019 Hep B and [...] showed osteoporosis [facility] 08/2019---[facility] labs reveal positive anti-WAREHOUSE [employer]ER antibody which is likely a false positive [...] showed osteoporosis [facility] 08/2019---[facility] labs reveal positive anti-WAREHOUSE [employer]ER antibody which is likely a false positive [...] showed osteoporosis [facility] 08/2019---[facility] labs reveal positive anti-WAREHOU[employer]ER antibody which is likely a false positive [...] showed osteoporosis [facility] 08/2019---[facility] labs reveal positive anti-WAREHOUSE [employer] antibody which is likely a false positive [...] showed osteoporosis [facility] 08/2019---[facility] labs reveal positive anti-WAREHOU[employer] antibody which is likely a false positive due to negative ASHLEY. Her father had psoriasis, pt changed from ra to PsA on 03/25/2020. Assessment & Plan (06/03/2020 2:56 PM [employer] [employer] [place]): Quant gold neg 12/2019 Hep B and [...] showed osteoporosis [facility] 08/2019---[facility] labs reveal positive anti-[employer]HOUSE [employer] antibody which is likely a false positive due to negative ASHLEY. Her father had psoriasis, pt changed from ra to PsA on 03/25/2020. Assessment & Plan (03/25/2020 3:03 PM [employer] [employer] [place]): Quant gold neg 12/2019 HLA B27 negative [...] showed osteoporosis [facility] 08/2019---[facility] labs reveal positive anti-[employer]SE [employer] antibody which is likely a false positive due to negative ASHLEY. Her father had psoriasis, pt changed from ra to PsA on 03/25/2020. Assessment & Plan (03/24/2020 7:28 AM [employer] [place]): Quant gold neg 12/2019 HLA B27 negative [...] showed osteoporosis [facility] 08/2019---[facility] labs reveal positive anti-WAREHOUSE [employer] antibody which is likely a false positive [...] showed osteoporosis [facility] 08/2019---[facility] labs reveal positive anti-WARE[employer] antibody which is likely a false positive [...] showed osteoporosis [facility] 08/2019---[facility] labs reveal positive anti-WAREHOU[employer]ER antibody which is likely a false positive [...] showed osteoporosis [facility] 08/2019---[facility] labs reveal positive anti-WARE[employer]ER antibody which is likely a false positive [...] showed osteoporosis [facility] 08/2019---[facility] labs reveal positive anti-WARE[employer]ER antibody which is likely a false positive [...] showed osteoporosis [facility] 08/2019---[facility] labs reveal positive anti-WARE[employer]ER antibody which is likely a false positive [...] osteoporosis Assessment & Plan (04/20/2019 4:59 PM [employer] [employer] [place]): Quant gold neg 10/2018. TPMT nl 17 [...] 01/31/2017 Assessment & Plan (05/28/2022 8:05 AM [employer] [place]): Images from the original note were not included. Had orencia infusion 05/02/2022. Continue orencia monotherapy. Off arava due to lipase elevation. Seeing gi at [facility] now. [place] and egd utd and nl in past year per pt. Had a nl pancreatic US recently with gi. Past serologies: [facility] panel 08/2019---labs reveal positive anti-WAREHOUSE [employer] antibody which is likely a false positive due to negative ASHLEY. RF neg but has a possible family hx of psoriatic arthritis (father) so if she develops psoriasis diagnosis will change to psoriatic arthritis. Rt hand US 09/2019 showed: F/u 1 month. Assessment & Plan (02/26/2022 12:12 PM [employer] [employer] [place]): Images from the original note were not included. High cdai. Her orencia is scheduled tomorrow. Continue orencia monotherapy. Off arava due to lipase elevation. Seeing gi at [facility] now. [place] and egd utd and nl in past year per pt. Had a nl pancreatic US recently with gi. She could be flaring up since her orencia is due tomorrow, overall she still feels that it is helping her joints. Past serologies: [facility] panel 08/2019---labs reveal positive anti-[employer]SE [employer] antibody which is likely a false positive [...] infections. Seeing gi at [facility] now for her elevated lipase. [place] and egd utd and nl in past year per pt. If labs stable will restart low dose arava 10mg po every day. To stay off orencia until recovered from rt knee surgery. Past serologies: [facility] panel 08/2019---labs reveal positive anti-[employer] antibody which is likely a false positive [...] tomorrow. Seeing gi at [facility] now. [place] and egd utd and nl in past year per pt. Due to burden of dz will give her a short course of oral prednisone. Discussed risks and se of systemic steroids. Past serologies: [facility] panel 08/2019---labs reveal positive anti-WAREHOUSE [employer]ER antibody which is likely a false positive [...] tomorrow. Seeing gi at [facility] now. [place] and egd utd and nl in past year per pt. Due to burden of dz will give her a short course of oral prednisone. Discussed risks and se of systemic steroids. Past serologies: [facility] panel 08/2019---labs reveal positive anti-WAREHOUSE [employer] antibody which is likely a false positive [...] gi dr arias for her pancreatitis . [place] and egd utd and nl in past year per pt. Seen with dr woodruff today. Past serologies: [facility] panel 08/2019---labs reveal positive anti-WAREHOUSE [employer] antibody which is likely a false positive due to negative ASHLEY. RF neg but has a possible family hx of psoriatic arthritis (father) so if she develops psoriasis diagnosis will change to psoriatic arthritis. Rt hand US 09/2019 showed: F/u 1 month. Assessment & Plan (06/28/2021 10:22 AM [employer] [place]): Images from the original note were not [...] Past serologies: [facility] panel 08/2019---labs reveal positive anti-WARE[employer] antibody which is likely a false positive due to negative ASHLEY. RF neg but has a possible family hx of psoriatic arthritis (father) so if she develops psoriasis diagnosis will change to psoriatic arthritis. Rt hand US 09/2019 showed: F/u 1 month. Assessment & Plan (06/15/2021 10:46 AM L[employer] [place]): Images from the original note were not [...] Past serologies: [facility] panel 08/2019---labs reveal positive anti-WARE[employer]SE [employer] antibody which is likely a false positive due to negative ASHLEY. RF neg but has a possible family hx of psoriatic arthritis (father) so if she develops psoriasis diagnosis will change to psoriatic arthritis. Rt hand US 09/2019 showed: F/u 1 month. Assessment & Plan (06/09/2021 10:16 AM [employer] [employer] [place]): Images from the original note were not [...] Past serologies: [facility] panel 08/2019---labs reveal positive anti-WARE[employer]SE [employer] antibody which is likely a false positive due to negative ASHLEY. RF neg but has a possible family hx of psoriatic arthritis (father) so if she develops psoriasis diagnosis will change to psoriatic arthritis. Rt hand US 09/2019 showed: F/u 1 month. Assessment & Plan (06/09/2021 8:29 AM [employer] [employer] [place]): Images from the original note were not [...] Past serologies: [facility] panel 08/2019---labs reveal positive anti-WARE[employer]ER antibody which is likely a false positive due to negative ASHLEY. RF neg but has a possible family hx of psoriatic arthritis (father) so if she develops psoriasis diagnosis will change to psoriatic arthritis. Rt hand US 09/2019 showed: F/u 1 month. Assessment & Plan (05/05/2021 10:11 PM [employer] [employer] [place]): Images from the original note were not [...] Past serologies: [facility] panel 08/2019---labs reveal positive anti-WAREHOUSE [employer]ER antibody which is likely a false positive due to negative ASHLEY. RF neg but has a possible family hx of psoriatic arthritis (father) so if she develops psoriasis diagnosis will change to psoriatic arthritis. Rt hand US 09/2019 showed: F/u 1 month. Assessment & Plan (03/31/2021 9:24 AM [employer] [place]): Images from the original note were not [...] Past serologies: [facility] panel 08/2019---labs reveal positive anti-WARE[employer] antibody which is likely a false positive [...] Past serologies: [facility] panel 08/2019---labs reveal positive anti-WAREHOUSE [employer]ER antibody which is likely a false positive [...] Past serologies: [facility] panel 08/2019---labs reveal positive anti-WAREHOUSE [employer]ER antibody which is likely a false positive [...] Past serologies: [facility] panel 08/2019---labs reveal positive anti-WAREHOUSE [employer]ER antibody which is likely a false positive due to negative ASHLEY. RF neg but has a possible family hx of psoriatic arthritis (father) so if she develops psoriasis diagnosis will change to psoriatic arthritis. Rt [facility] 09/2019 showed: Assessment & Plan (07/18/2020 8:24 AM CDT): Images from the original note were not included. High cdai. On imuran to 100mg bid and Stelara. Discussed potential se and risks of stelara tx. To see her gi for her diarrhea, she is due for colonoscopy. Continue imuran. To get covid 19 vaccine when available. Past serologies: [facility] panel 08/2019---labs reveal positive anti-WAREHOUSE [employer] antibody which is likely a false positive due to negative ASHLEY. RF neg but has a possible family hx of psoriatic arthritis (father) so if she develops psoriasis diagnosis will change to psoriatic arthritis. Rt [facility] 09/2019 showed: Assessment & Plan (06/03/2020 5:27 PM L[employer] [place]): Images from the original note were not [...] Past serologies: [facility] panel 08/2019---labs reveal positive anti-WAREHOUSE [employer]ER antibody which is likely a false positive due to negative ASHLEY. RF neg but has a possible family hx of psoriatic arthritis (father) so if she develops psoriasis diagnosis will change to psoriatic arthritis. Rt [facility] 09/2019 showed: Assessment & Plan (03/25/2020 3:01 PM L[employer] [place]): Images from the original note were not [...] Past serologies: [facility] panel 08/2019---labs reveal positive anti-WAREHOU[employer]ER antibody which is likely a false positive due to negative ASHLEY. RF neg but has a possible family hx of psoriatic arthritis (father) so if she develops psoriasis diagnosis will change to psoriatic arthritis. Rt [facility] 09/2019 showed: Assessment & Plan (03/24/2020 7:29 AM [employer] [place]): Images from the original note were not included. Bernardino zapien Wants to go back to sq orencia, gave pt 1 mo of samples and will start approval. Can't come in for iv orencia, her dad is on hospice. Increase imuran to 100mg bid, check cbc/cmp in 2 weeks and f/u in 1month. Past serologies: [facility] panel 08/2019---labs reveal positive anti-WAREHOUSE [employer]ER antibody which is likely a false positive due to negative ASHLEY. RF neg but has a possible family hx of psoriatic arthritis (father) so if she develops psoriasis diagnosis will change to psoriatic arthritis. Rt [facility] 09/2019 showed: Assessment & Plan (02/19/2020 11:34 AM CDT): Bernardino zapien Wants to go back to sq orencia, gave pt 1 mo of samples and will start approval. Can't come in for iv orencia, her dad is on hospice. Increase imuran to 100mg bid, check cbc/cmp in 2 weeks and f/u in 1month. Past serologies: [facility] panel 08/2019---labs reveal positive anti-WAREHOUSE [employer]ER antibody which is likely a false positive due to negative ASHLEY. RF neg but has a possible family hx of psoriatic arthritis (father) so if she develops psoriasis diagnosis will change to psoriatic arthritis. Rt [facility] 09/2019 showed: Assessment & Plan (01/22/2020 [...] Past serologies: [facility] panel 08/2019---labs reveal positive anti-WAREHOU[employer]ER antibody which is likely a false positive [...] every day. [facility] panel 08/2019---labs reveal positive anti-WAREHOU[employer]ER antibody which is likely a false positive due to negative ASHLEY. Otherwise labs look good. No evidence of a new autoimmune connective tissue disease. Cont orencia sq and imuran 100mg po qhs. [place] better on iv orencia, will change from [...] since resolved. [facility] panel 08/2019---labs reveal positive anti-WARE[employer] antibody which is likely a false positive [...] of orencia. [facility] panel 08/2019---labs reveal positive anti-WAREHOU[employer]ER antibody which is likely a false positive [...] of orencia. [facility] panel 08/2019---labs reveal positive anti-WAREHOUSE [employer]ER antibody which is likely a false positive [...] wnl. Assessment & Plan (04/23/2019 1:46 PM [facility] [employer] [place]): High cdai. On orencia IV but has [...] citrate. Assessment & Plan (06/03/2020 2:56 PM [employer] [employer] [place]): Multiple kidney stones for over 10 yrs, [...] on file Legal Sex Female 9:24 PM [employer] [employer] [place] Gender Identity Female 08/14/2022 11:32 AM CDT [...] HEPATITIS C AB Routine 06/29/2015 2:43 PM [employer] [employer] [place] from Last 3 Months or Most Recently Relevant to Health Maintenance Results * ThinPrep Pap with HPV (12/24/2018 3:41 PM CDT) 12/24/2018 3:41 PM CDT 12/25/2018 8:54 AM CDT [facility] - 12/26/2018 2:53 PM CDT [facility] Department of Pathology [address] [place] [address], [place] [address] Final Report with Addendum Patient Name: JULIAN SAUER Address: [address] [place] [address] Gender: F : 1975 (Age: 43) Service: Laboratory Location: Lab [facility] #: [id number] Patient Type: CH Ref Lab Taken: 12/24/2018 Received: 12/25/2018 Accessioned:: 12/26/2018 Reported: 12/26/2018 Physician(s): Curtis Oseguera M.D. [facility] Diagnosis: Source of Specimen: SCREENING IMAGED PAP [...] determined by the Surgical Pathology Department at [facility] as part of an ongoing quality assurance supervisor body program and in compliance with federally mandated [...] characteristics determined by the Surgical Pathology Department [facility]. It has not been cleared or approved by the U. S. Food and Drug Administration. us Curtis Oseguera MD LAB CYTOLOGY ORDERABLES Final Result [facility] [id number] [place], [place] [address] [phone] * Serum Hepatitis C ab (06/29/2015 2:43 PM [employer] [employer] [place]) HCV ab Non-Reacti ve Non-Reacti ve HISTORICAL RESULTS Serum 06/29/2015 2:43 PM [employer] [employer] [place] Miriam VALLE LAB BLOOD ORDERAB LES Final Result Performing Organization Address City[facility] Co de Phone Number HISTORICAL RESULTS from Last 3 Months or Most Recently Relevant to Health Maintenance Insurance REPLACED BY [facility] BLUE ACCESS [place] BLUE ACCESS [place] BLUE ACCESS [place] Care Teams Hostess Cashier Relationship Specialty Start Date End Date Bhupinder Tobias MD [address] [place] [address] PCP - General Internal Medicine 06/03/20 Cash Woodruff III, MD [address] [place] [address] Rheumatology 04/12/17 Jorge Aguiar MD [address] [place] [address] Consulting Physician Urology 11/10/20 Khoa Arias MD [address] [place] [address] Referring Physician Gastroenterology 03/20/21
--- OUTSIDE RECORDS SUMMARY | 2024-10-30 15:46 | XMS_ITS | Patient Health Record ---
Author Organization [facility] Address [address] [place] [address] Care Team Providers Care Skid [address] Man Name Role Phone NADINE RUSH Unavailable [phone] Allergies No Known Allergies Reason For Referral Reason EVAL AND TREAT Diagnosis 1 Chronic pain syndrom e (G89.4) Referral Organization [facility] Referring Provider First Name TERESA Referring Provider Last Name KARL Referring Provider Speciality Physician Piano Accompanist Referred Provider Specialty Pain Medicin e Referral Priority Routine Referral Appointment Date 02/25/2024 Social History Tobacco Use: Social History Observation Description Date Details (start date - stop date) Former Smoker NA - NA Tobacco Control (Standard) Question Answer Notes Tobacco use: Former smoker Problems Problem Type SNOMED Code ICD Code Onset Dates Problem Status W/U Status Risk Notes Problem [id number] Chronic pain syndrome (G89.4) Active confirmed Vital Signs Height 66 in 02/25/2024 Patient Reported Normal Blood Pressure Patient Reported Normal Temperature Weight 200 lbs 02/25/2024 Patient Reported Normal Blood Pressure Patient Reported Normal Temperature BMI 32.28 kg/m2 02/25/2024 Patient Reported Normal Blood Pressure Patient Reported Normal Temperature Encounters Encounter Location Date Provider Diagnosis [facility] [address] [place] [address] 02/25/2024 NADINE RUSH Chronic pain syndrom e [...] Insured Coverage Start Date Coverage End Date [facility] [address] [place] [address] [id number] Madalyn Smith Self - patient is the insured Medical (General) History Medical History History ICD Code Meredith Camilla 05/23/1990 Obesity
--- OUTSIDE RECORDS SUMMARY | 2024-10-30 15:46 | XMS_ITS | Patient Health Record ---
Author Organization [facility] [employer] [facility] Address [address] [facility] [address] [place] [address] Care Team Providers Care Electric Cutter Operator Name Role Phone Jose Zhang DO Primary Care Provider UnavailAlix Sher Unavailable [phone] Mario Diaz Unavailable [phone] Natty Rogers Unavailable [phone] Jared Jensen Unavailable [phone] Chari Pappas Unavailable [phone] Jyoti New Unavailable [phone] Allergies No Known Allergies Results Component Value Reference Range Notes UDT Reviewed date:11/20/2023 09:30:02 AM Interpretation: Performing Lab: Notes/Report: THC pos 0 - 50 ng/ml Cocaine neg 0 - 300 ng/ml Amphetamine neg 0 - 1000 ng/ml Buprenorphine (BUP) neg 0 - 10 ng/ml Secobarbital (Bar) neg 0 - 300 ng/ml Oxazepam (BZO) pos 0 - 300 ng/ml 6-crghkzfnyc-4,9-xdtyfrhl-9, 3-diphen ylpyrrolidine (EDDP) neg 0 - 300 ng/ml Methamphetamine (MET) neg 0 - 1000 ng/ml Methylenedioxymethamphetamine (MDMA) neg 0 - 500 ng/ml Morphine (MOP 300/TRE1835) pos 0 - 300 ng/ml Methadone (MTD) neg 0 - 300 ng/ml Phencyclidine (PCP) neg 0 - 25 ng/ml Nortriptyline (TCA) neg 0 - 1000 ng/ml Oxycodone pos 0 - 300 ng/ml x neg 0 - 300 ng/ml UDT Reviewed date:01/30/2024 09:33:30 AM Interpretation: Performing Lab: Notes/Report: THC p 0 - 50 ng/ml Cocaine n 0 - 300 ng/ml Amphetamine n 0 - 1000 ng/ml Buprenorphine (BUP) n 0 - 10 ng/ml Secobarbital (Bar) n 0 - 300 ng/ml Oxazepam (BZO) p 0 - 300 ng/ml 4-wontjkhfya-5,7-ajcdjtnm-8, 3-diphen ylpyrrolidine (EDDP) n 0 - 300 ng/ml Methamphetamine (MET) n 0 - 1000 ng/ml Methylenedioxymethamphetamine (MDMA) n 0 - 500 ng/ml Morphine (MOP 300/HNU2645) n 0 - 300 ng/ml Methadone (MTD) n 0 - 300 ng/ml Phencyclidine (PCP) n 0 - 25 ng/ml Nortriptyline (TCA) n 0 - 1000 ng/ml Oxycodone n 0 - 300 ng/ml x n 0 - 300 ng/ml THCCOOH Reviewed date:10/16/2024 03:20:21 PM Interpretation: Performing Lab: Notes/Report: THCCOOH 96.6 15.0 ng/mL Not Medicated Inconsistent Benzodiazepines Reviewed date:10/16/2024 03:20:21 PM Interpretation: Performing Lab:[address] [place] [address], [address] [place] [address], Director - [id number] Notes/Report: An exception occurred while processing this report and so it has incomplete data. Please contact [employer] for assistance. Medicated Consistent Medicated Consistent Not Medicated Consistent Not Medicated Consistent Not Medicated Consistent Not Medicated Consistent Not Medicated Consistent Not Medicated Consistent Not Medicated Consistent Not Medicated Consistent 7-Aminoclonazepam NEGATIVE 20.0 ng/mL Temazepam NEGATIVE 40.0 ng/mL Oxazepam NEGATIVE 40.0 ng/mL Midazolam NEGATIVE 40.0 ng/mL Lorazepam NEGATIVE 40.0 ng/mL Nordiazepam NEGATIVE 40.0 ng/mL Diazepam NEGATIVE 40.0 ng/mL Clonazepam NEGATIVE 20.0 ng/mL Hydroxyalprazolam >800 20.0 Alprazolam 408.7 20.0 ng/mL PDF Report CE_OUT_RAW_COMM ON_SRC_ORU Validity Testing Reviewed date:10/16/2024 03:20:21 PM Interpretation: Performing Lab: Notes/Report: Not Medicated Inconsistent Not Medicated Consistent Not Medicated Consistent Not Medicated Consistent Specific [place] 1.019 1.003 - 1.030 pH 6.0 3.0 - 10.9 Oxidants -36 200 g/mL Creatinine 312.4 20.0 - 300.0 UDT Reviewed date:10/16/2024 03:20:21 PM Interpretation: Performing Lab: Notes/Report: THC P 0 - 50 ng/ml Cocaine N 0 - 300 ng/ml Amphetamine N 0 - 1000 ng/ml Buprenorphine (BUP) N 0 - 10 ng/ml Secobarbital (Bar) N 0 - 300 ng/ml Oxazepam (BZO) P 0 - 300 ng/ml 1-whguxefnuq-9,1-xcvbonxn-2, 3-diphen ylpyrrolidine (EDDP) N 0 - 300 ng/ml Methamphetamine (MET) N 0 - 1000 ng/ml Methylenedioxymethamphetamine (MDMA) N 0 - 500 ng/ml Morphine (MOP 300/[id number]) N 0 - 300 ng/ml Methadone (MTD) N 0 - 300 ng/ml Phencyclidine (PCP) N 0 - 25 ng/ml Nortriptyline (TCA) N 0 - 1000 ng/ml Oxycodone N 0 - 300 ng/ml x N 0 - 300 ng/ml UDT Reviewed date:09/23/2024 10:59:52 AM Interpretation: Performing Lab: Notes/Report: THC POS 0 - 50 ng/ml Cocaine NEG 0 - 300 ng/ml Amphetamine NEG 0 - 1000 ng/ml Buprenorphine (BUP) NEG 0 - 10 ng/ml Secobarbital (Bar) NEG 0 - 300 ng/ml Oxazepam (BZO) POS 0 - 300 ng/ml 4-dxekpgxeim-6,6-ysecubih-7, 3-diphen ylpyrrolidine (EDDP) NEG 0 - 300 ng/ml Methamphetamine (MET) NEG 0 - 1000 ng/ml Methylenedioxymethamphetamine (MDMA) NEG 0 - 500 ng/ml Morphine (MOP 300/[id number]) POS 0 - 300 ng/ml Methadone (MTD) NEG 0 - 300 ng/ml Phencyclidine (PCP) NEG 0 - 25 ng/ml Nortriptyline (TCA) NEG 0 - 1000 ng/ml Oxycodone NEG 0 - 300 ng/ml x NEG 0 - 300 ng/ml UDT Reviewed date:08/26/2024 08:55:57 PM Interpretation: Performing Lab: Notes/Report: THC p 0 - 50 ng/ml Cocaine n 0 - 300 ng/ml Amphetamine n 0 - 1000 ng/ml Buprenorphine (BUP) n 0 - 10 ng/ml Secobarbital (Bar) n 0 - 300 ng/ml Oxazepam (BZO) n 0 - 300 ng/ml 8-rxprtfeqkf-3,7-fsolukio-5, 3-diphen ylpyrrolidine (EDDP) n 0 - 300 ng/ml Methamphetamine (MET) n 0 - 1000 ng/ml Methylenedioxymethamphetamine (MDMA) n 0 - 500 ng/ml Morphine (MOP 300/CFH4435) p 0 - 300 ng/ml Methadone (MTD) n 0 - 300 ng/ml Phencyclidine (PCP) n 0 - 25 ng/ml Nortriptyline (TCA) n 0 - 1000 ng/ml Oxycodone n 0 - 300 ng/ml x n 0 - 300 ng/ml Reason For Referral No Information Medications Medication SIG (Take, Route, Frequency, Duration) Notes Start Date End Date Status ALPRAZolam 0.5 MG 1 tablet twice a day, 0.5 tablet as needed Oral see sign; Duration: 30 days 10/15/2024 Active Metoclopramide HCl 5 MG Oral Active DULoxetine HCl 30 MG 1 capsule Orally Once a day total dose 90 mg Active buPROPion HCl ER (XL) 300 MG 1 tablet in the morning Oral Once a day Active HYDROcodone-Acetamino phen 5-325 MG Oral Active Dicyclomine HCl 20 MG Oral Active Propranolol HCl 10 MG 1 tablet Orally 3 times a day 08/24/2024 Active Gabapentin 100 MG Oral Ac tive traZODone HCl 100 MG 1 tablet at bedtime Oral Once a day Active Ondansetron 8 MG Oral Act stanley DULoxetine HCl 60 MG 1 capsule Oral Once a day total dose 90 mg Active Potassium Citrate ER 15 mEq Oral *Pick strength-form from Episona for eRX* Active Pantoprazole Sodium 40 MG Oral Active SUMAtriptan Succinate 6 MG/0.5ML Subcutaneous Active LUBIPROSTONE 24 MCG CAPSULE *Reorder from Episona for eRx and Interaction Alerts* Active Social History Tobacco Use: Social History [...] technical, or vocational programAre you currently employed?: NoWTipTap is your employer?: I have [email or web address] and have been ?retired? for 5 years.Marriage and SexualityWhat is your relationship status?: MarriedAre you sexually active?: NoDo you use protection during sex?: NoHow many children do you have?: 5Home and EnvironmentAre there any guns present in your home?: NoAdvance DirectiveDo you have an advance directive?: NoDo you have a medical power of percussion instructor?: No Social History Substance UseDo you or [...] technical, or vocational programAre you currently employed?: NoWTipTap is your employer?: I have [email or web address] and have been ?retired? for 5 years.Marriage and SexualityWhat is your relationship status?: MarriedAre you sexually active?: NoDo you use protection during sex?: NoHow many children do you have?: 5Home and EnvironmentAre there any guns present in your home?: NoAdvance DirectiveDo you have an advance directive?: NoDo you have a medical power of percussion instructor?: No Social History Substance UseDo you or [...] technical, or vocational programAre you currently employed?: NoWTipTap is your employer?: I have [employer] and have been ?retired? for 5 years.Marriage and SexualityWhat is your relationship status?: MarriedAre you sexually active?: NoDo you use protection during sex?: NoHow many children do you have?: 5Home and EnvironmentAre there any guns present in your home?: NoAdvance DirectiveDo you have an advance directive?: NoDo you have a medical power of percussion instructor?: No Social History Substance UseDo you or [...] technical, or vocational programAre you currently employed?: NoWT[employer] is your employer?: I have [employer] and have been ?retired? for 5 years.Marriage and SexualityWhat is your relationship status?: MarriedAre you sexually active?: NoDo you use protection during sex?: NoHow many children do you have?: 5Home and EnvironmentAre there any guns present in your home?: NoAdvance DirectiveDo you have an advance directive?: NoDo you have a medical power of percussion instructor?: No Social History Substance UseDo you or [...] NoDo you have a medical power of percussion instructor?: No Social History Substance UseDo you or [...] technical, or vocational programAre you currently employed?: NoWT[employer] is your employer?: I have [employer] and have been ?retired? for 5 years.Marriage and SexualityWhat is your relationship status?: MarriedAre you sexually active?: NoDo you use protection during sex?: NoHow many children do you have?: 5Home and EnvironmentAre there any guns present in your home?: NoAdvance DirectiveDo you have an advance directive?: NoDo you have a medical power of percussion instructor?: No Social History Substance UseDo you or [...] NoWho is your employer?: I have [employer] and have been ?retired? 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 (21524449) Insomnia due to other mental disorder (F51.05) 09/11/19 24 Active confirmed Problem Essential tremor (382961638) Essential tremor (G25.0) Active confirmed Problem Attention deficit hyperactivity disorder, 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) Attention and concentration deficit (R41.840) Active confirmed Problem Attention deficit hyperactivity disorder (888413145) Attention deficit hyperactivity disorder (ADHD), unspecified ADHD type (F90.9) Active confirmed Problem 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 Problem Rheumatoid arthritis (78833772) RA (rheumatoid arthritis) (M06.9) 12/28/19 19 Active confirmed Vital Signs Heart Rate 100 [...] N/A Encounters Encounter Location Date Provider Diagnosis [address] [facility] [address] [place] [address] 11/20/2023 Chari Pappas Generalized anxiety disorder F41.1 ; Insomnia due to other mental disorder F51.05 and 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 Z79.[address] [address] 11/21/2023 Jyoti Saavedraromán Generalized anxiety disorder F41.[address] [facility] [address] [place] [address] 12/05/2023 Jyoti Saavedraliter Generalized anxiety disorder F41.[address] [address] 01/30/2024 Chari Mian Generalized anxiety disorder F41.1 ; Insomnia due to other mental disorder F51.05 and 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 Z79.[address] [address] 04/16/2024 Alix Sanchez Generalized anxiety disorder F41.1 ; Insomnia due to other mental disorder F51.05 ; 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 and Elevated BP without diagnosis of hypertension R03.[address] [address] 05/04/2024 Mario Diaz [address] [address] 06/15/2024 Alix Sanchez Generalized anxiety disorder F41.1 ; Insomnia due to other mental disorder F51.05 and 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 [facility] [address] [place] [address] 08/24/2024 Alix Sanchez Generalized anxiety disorder F41.1 ; Insomnia due to other mental disorder F51.05 ; 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 ; Essential tremor G25.0 ; Encounter for screening for cardiovascular disorders Z13.6 ; Dietary counseling and surveillance Z71.3 and Negative depression screening Z13.[address] [facility] [address] [place] [address] 09/23/2024 Alix Sanchez Generalized anxiety disorder F41.1 ; Attention and concentration deficit R41.840 ; Insomnia due to other mental disorder F51.05 ; Essential tremor G25.0 ; 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 ; Encounter for screening for depression Z13.31 ; Encounter for screening for cardiovascular disorders Z13.6 and Negative depression screening Z13.31 [facility] [employer] [facility] [address] [facility] [address] [place] [address] 10/13/2024 Jared Mikey Attention deficit hyperactivity disorder (ADHD), unspecified ADHD type F90.9 [facility] [address] [address] 11/18/2023 [employer] [facility] [address] [address] 11/19/2023 [employer] [facility] [employer] [facility] [address] [address] 01/21/2024 Natty Rogers Generalized anxiety disorder F41.1 [facility] [employer] [place] [address] [address] 05/04/2024 [facility] [address] [address] 11/18/2023 Chari [employer] [facility] [employer] [place] [address] [address] 11/18/2023 Chari [employer] [facility] [employer] [facility] [address] [address] 11/18/2023 [employer] [facility] [employer] [facility] [address] [facility] [address] [place] [address] 04/02/2024 [facility] [employer] [facility] [address] [facility] [address] [place] [address] 08/12/2024 Alix Sanchez Assessments Encounter Date Diagnosis [...] willing to try taper. has been given [place] bzo risks handout 11/20/2023 Insomnia due to [...] rheumatoid arthritis Spiritual Beliefs: a mishmash between Jew, Catholicism.I don't know. 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 - [...] willing to try taper. has been given [place] b[place] risks handout 04/16/2024 Generalized anxiety disorder [...] Attention and concentration deficit (ICD-10 - R41.840) 10/13/2024 Attention deficit hyperactivity disorder (ADHD), unspecified ADHD type (ICD-10 - F90.9) ADHD and Cognitive Assessment Interpretation Summary of Results: The individual falls in the adult age group of 45 to 54 and completed a [facility] ADHD and cognitive assessment on 2024-10-13. Based on the results: ADHD Screening: ASRS v1.1 Part A shows a score of 4, which is above the threshold (> 3), indicating positive screening for ADHD symptoms. The Hyperactive/Impuls stanley subtype is indicative, while the Inattentive subtype is not indicative. Cognitive Performance (Lim Findings): A total of 3 cognitive markers are outside the typical range, suggesting specific executive function impairments: Response Inhibition (Double Trouble Task): Errors: Very high (27 errors), well above the norm (<14), placing in the 97th percentile for error frequency. Interference control (for errors and reaction time) is significantly impaired. Reaction time and variability are poor (very low percentiles), suggesting difficulty maintaining focus under interference or pressure. Sustained Attention (SART): Commission errors and reaction time variability indicate difficulty maintaining attention over time. Slowing after errors is significantly less than typical, suggesting reduced error awareness or difficulty adapting behavior after mistakes. Planning and Working Memory: Planning score is within typical range but low (56th percentile). Spatial working memory is slightly above average (62nd percentile), suggesting this domain is relatively preserved. Attention (Feature Match Task): Reaction time is slow (74th percentile), though accuracy remains acceptable. Interpretation: There is strong evidence of impairment in response inhibition and sustained attention, commonly associated with ADHD, particularly the hyperactive/impuls stanley subtype. While some cognitive skills such as spatial working memory are intact, the variability in reaction time, increased commission errors, and high interference susceptibility support the likelihood of functional executive dysfunction. Recommended Non-Pharmacologic Interventions: Cognitive Behavioral Therapy (CBT) for ADHD: Focus on managing impulsivity, improving emotional regulation, and building organizational skills. Helps develop practical strategies for attention control. Mindfulness-Based Attention Training: Practices like mindfulness meditation can improve sustained attention and reduce response variability over time. Executive Function Coaching: Targeted interventions to develop skills in planning, task initiation, and time management. Tools like checklists, calendars, and reminders may assist in structuring daily tasks. Behavioral Interventions and Skill Training: Implement external structure and positive reinforcement. Use of visual schedules and prompts to support task execution and reduce distractibility. Computerized Cognitive Training: Programs designed to strengthen inhibition and attention control (e.g., attention-shaping games or inhibitory control apps). Practice with adaptive difficulty settings for engagement and skill building. Sleep, Nutrition, and Exercise: Encourage regular aerobic exercise, which can enhance executive functioning and reduce impulsive behaviors. Sleep hygiene practices to support cognitive performance and regulation. Psychoeducation and Family Support: Educate about ADHD traits and how they manifest in adults. Coaching and family involvement can promote consistent application of strategies. on. 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 (ICD-10 - Z79.899) UDS consistent with pain management/op iate, cannabis and alprazolam 01/30/2024 Other skilled nursing (current) drug therapy (ICD-10 - Z79.899) 04/16/2024 [...] Cognitive Testing 09/23/2024 Next Appt Details Provider Name:Alix benton, 11/03/2024 11:45:00 AM, [address] [facility] [address], [facility] [address], [place], [address], Insurance Providers Payer Name Payer Address Payer Phone Subscriber Number Group Number Insured Name Patient Relationship to Insured Coverage Start Date Coverage End Date [employer] [address] [place] [address] [id number] JULIAN SAUER Self - patient is the [...] Surgery Date(Month/Year) Sinus surgery Tonsilectomy/adenoids 04/22/1980 Hysterectomy (68153) 03/01/2023 oopherectomy 12/2023
--- OUTSIDE RECORDS SUMMARY | 2024-10-30 15:46 | XMS_ITS ---
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 Name Role Phone Jose Zhang DO Primary Care Provider Alix Romero Unavailable [phone] REASON FOR VISIT ADHD Follow Up - seen early Social History Sex Assigned At : Social History Observation Description Sex Assigned At Female Encounters Encounter Location Date Provider Diagnosis [facility] [employer] [place] [address] [facility] [address] [facility] [address] [place] [address] 10/07/2024 Alxi Sanchez Plan Of Treatment Next Appt Details Provider Name:Alix benton, 11/03/2024 11:45:00 AM, [address], [facility] [address], [place], [address], Progress Notes * JULIAN SAUERDOB:1975 ( 49 yo F)Acc No.[id number]:10/07/2024 Patient: JULIAN FREEMAN Provider: Joseph Sanchez :1975 A ge:49 Y S ex:Female Date:10/07/2024 Address:[address] [facility] Pcp:Jose Zhang DO Subjective: * Chief Complaints: * 1 . ADHD Follow Up - seen early. * Medical History: Objective: * Vitals: Assessment: Plan: * Treatment: * Billing Information: * Visit Code: * Procedure Codes: * Electronic signature of Dakota Sanchez on 10/30/2024 at 03:46 PM CDT Sign off status: Pending * Provider: Joseph Sanchez Date: 0 10/07/2024 Generated for Tree regalado/Caryl/Dayna on: 0 10/30/2024 03:46 PM CDT
--- OUTSIDE RECORDS SUMMARY | 2024-10-30 15:46 | XMS_ITS ---
Author Organization [facility] [employer] [facility] Address [facility] [facility] [address] [place] [address] Care Team Providers Care Sketch Liner Name Role Phone Jose Zhang DO Primary Care Provider UnavailAlix Sher Unavailable [phone] Jared Rowley Unavailable [phone] REASON FOR VISIT ADHD Test - R/S from 09/25 Social History Sex Assigned At : Social History Observation Description Sex Assigned At Female Encounters Encounter Location Date Provider Diagnosis [facility] [place] [address] [facility] [address] [place] [address] 09/28/2024 Jared Rowley Plan Of Treatment Next Appt Details Provider Name:Alix benton, 11/03/2024 11:45:00 AM, [facility], [facility] [address], [place], [address], Progress Notes * JULIAN SAUERDOB:1975 ( 49 yo F)Acc No.[id number]:09/28/2024 ADHD Testing Patient: Armando GONZALEZJULIAN Provider: Armando ROWLEY MD :1975 A ge:49 Y S ex:Female Date:09/28/2024 [address] [facility] Pcp:Jose Zhang DO Subjective: * Chief Complaints: * 1 . ADHD Test - R/S from 09/25. * Active Problem List Q79.60 EDS (Mariano s yndrome) Modified On:04/16/2024 Status:confirmed F41.1 Generalized anxiety disorder Onset Date:09/11/2023Modified On:11/20/2023 Status:confirmed F51.05 Insomnia due to othe r mental disorder Onset Date:09/11/2023Modified On:11/20/2023 Status:confirmed M06.9 RA (rheumatoid arthr itis) Onset Date:12/27/2018Modified On:08/24/2024 Status:confirmed G25.0 Essential tremor Modified On:08/24/2024 Status:confirmed R41.840 Attention and concen tration deficit Modified On:09/23/2024 Status:confirmed F90.9 Attention deficit hy peractivity disorder (ADHD), unspecified ADHD type Modified On:10/14/2024 Status:confirmed * Medical History: Objective: * Vitals: Assessment: Plan: * Treatment: * Billing Information: * Visit Code: * Procedure Codes: * Electronic signature of Jan Rowley MD on 10/30/2024 at 03:45 PM CDT Sign off status: Pending * Provider: Armando ROWLEY MD Date: 0 09/28/2024 Generated for Tree regalado/Caryl/Dayna on: 10/30/2024 03:45 PM CDT
--- OUTSIDE RECORDS SUMMARY | 2024-10-30 15:46 | XMS_ITS | Clinical Summary ---
Author Organization [id number] Address [address] [place] [address] Phone Care Team Providers Care Assault Amphibious Vehicle Officer Name Role Phone Kumar CARRILLO MD, John J. Unavailable [phone] Bhupinder Tobias MD Primary Care Provider [phone] Jorge Aguiar MD Unavailable [phone] Khoa Arias MD Unavailable [phone] Allergies No known active allergies Medications SUMAtriptan [...] (08/30/2021): Added automatically from request for surgery [id number] Abdominal pain 03/31/2021 Assessment & Plan (06/28/2021 10:08 AM FILTER WASHER AND PRESSER): Recently dx with mild pancreatitis. Needs lipase/amylase rechecked. Still has some upper abd pain. Advised pt to f/u with GI also. Assessment & Plan (06/19/2021 8:52 AM FILTER WASHER AND PRESSER): Had abd pain early this month, check amyl/lip and ua. Pain has resolved. Assessment & Plan (05/05/2021 10:13 PM FILTER WASHER AND PRESSER): Having abd pain, bloating, constipation. On meds for IBS and also using suppositories to have BM. Incidental findings of mesenteric fat stranding (adenitis or panniculitis) on abd CT. Awaiting further eval by Dr. Arias. Assessment & Plan (03/31/2021 8:44 AM FILTER WASHER AND PRESSER): Elevated lipase. Imuran stopped. Pt advised to [...] 04/23/2019 Assessment & Plan (03/24/2020 7:29 AM FILTER WASHER AND PRESSER): Normal serum immunoglobulins. Assessment & Plan (01/21/2020 [...] immunoglobulins. Assessment & Plan (04/23/2019 1:46 PM FILTER WASHER AND PRESSER): Check serum immunoglobulins. Osteoporosis without current pathological fractu re 09/18/2018 Assessment & Plan (08/10/2021 8:09 AM CDT): bds checked by pcp in past, is taking ca and vit d and pcp checked vit D and PTH per pt was wnl. Her pcp started her on alendronate 70mg po qweek. Taking ca + vit d 1200mg qd. Assessment & Plan (06/15/2021 10:46 AM FILTER WASHER AND PRESSER): bds checked by pcp in past, is taking ca and vit d and pcp checked vit D and PTH per pt was wnl. Her pcp started her on alendronate 70mg po qweek. Taking ca + vit d 1200mg qd. Assessment & Plan (06/09/2021 8:30 AM FILTER WASHER AND PRESSER): bds checked by pcp in past, is taking ca and vit d and pcp checked vit D and PTH per pt was wnl. Her pcp started her on alendronate 70mg po qweek. Taking ca + vit d 1200mg qd. Assessment & Plan (05/04/2021 8:19 AM FILTER WASHER AND PRESSER): bds checked by pcp in past, is [...] qd. Assessment & Plan (06/03/2020 7:38 AM FILTER WASHER AND PRESSER): bds checked by pcp in past, is taking ca and vit d and pcp checked vit D and PTH per pt was wnl. Her pcp started her on alendronate 70mg po qweek. Taking ca + vit d 1200mg qd. Assessment & Plan (03/25/2020 8:34 AM FILTER WASHER AND PRESSER): bds checked by pcp in past, is taking ca and vit d and pcp checked vit D and PTH per pt was wnl. Her pcp started her on alendronate 70mg po qweek. Taking ca + vit d 1200mg qd. Assessment & Plan (03/24/2020 7:29 AM FILTER WASHER AND PRESSER): bds checked by pcp in past, is [...] qd. Assessment & Plan (04/20/2019 4:56 PM FILTER WASHER AND PRESSER): bds checked by pcp in past, is [...] pcp. Assessment & Plan (06/03/2020 7:37 AM FILTER WASHER AND PRESSER): Was advised in past to get chest CT to r/o aortic aneurysm, to discuss with pcp. Assessment & Plan (03/25/2020 8:33 AM FILTER WASHER AND PRESSER): Was advised in past to get chest CT to r/o aortic aneurysm, to discuss with pcp. Assessment & Plan (03/24/2020 7:29 AM FILTER WASHER AND PRESSER): Was advised in past to get chest [...] pcp. Assessment & Plan (04/20/2019 4:57 PM FILTER WASHER AND PRESSER): Advised to get chest CT to r/o aortic aneurysm, to discuss with pcp. Assessment & Plan (10/31/2018 7:38 AM CDT): Advised to get chest CT to r/o aortic aneurysm, to discuss with pcp. Encounter for long-term (current) use of medicat ions 01/31/2017 Assessment & Plan (05/28/2022 8:07 AM FILTER WASHER AND PRESSER): Quant gold neg 12/2019 Hep B and [...] showed osteoporosis [facility] 08/2019---[facility] labs reveal positive anti-COMBINATION MACHINE TOOL SETTER antibody which is likely a false positive due to negative ASHLEY. Her father had psoriasis, pt changed from ra to PsA on 03/25/2020. Assessment & Plan (02/26/2022 8:16 AM FILTER WASHER AND PRESSER): Quant gold neg 12/2019 Hep B and [...] showed osteoporosis [facility] 08/2019---[facility] labs reveal positive anti-COMBINATION MACHINE TOOL SETTER antibody which is likely a false positive [...] showed osteoporosis [facility] 08/2019---[facility] labs reveal positive anti-COMBINATION MACHINE TOOL SETTER antibody which is likely a false positive [...] showed osteoporosis [facility] 08/2019---[facility] labs reveal positive anti-COMBINATION MACHINE TOOL SETTER antibody which is likely a false positive [...] showed osteoporosis [facility] 08/2019---[facility] labs reveal positive anti-COMBINATION MACHINE TOOL SETTER antibody which is likely a false positive [...] showed osteoporosis [facility] 08/2019---[facility] labs reveal positive anti-COMBINATION MACHINE TOOL SETTER antibody which is likely a false positive due to negative ASHLEY. Her father had psoriasis, pt changed from ra to PsA on 03/25/2020. Assessment & Plan (06/28/2021 8:44 AM FILTER WASHER AND PRESSER): Quant gold neg 12/2019 Hep B and [...] showed osteoporosis [facility] 08/2019---[facility] labs reveal positive anti-COMBINATION MACHINE TOOL SETTER antibody which is likely a false positive due to negative ASHLEY. Her father had psoriasis, pt changed from ra to PsA on 03/25/2020. Assessment & Plan (06/15/2021 10:44 AM FILTER WASHER AND PRESSER): Quant gold neg 12/2019 Hep B and [...] showed osteoporosis [facility] 08/2019---[facility] labs reveal positive anti-COMBINATION MACHINE TOOL SETTER antibody which is likely a false positive due to negative ASHLEY. Her father had psoriasis, pt changed from ra to PsA on 03/25/2020. Assessment & Plan (06/09/2021 10:15 AM FILTER WASHER AND PRESSER): Quant gold neg 12/2019 Hep B and [...] showed osteoporosis [facility] 08/2019---[facility] labs reveal positive anti-COMBINATION MACHINE TOOL SETTER antibody which is likely a false positive due to negative ASHLEY. Her father had psoriasis, pt changed from ra to PsA on 03/25/2020. Assessment & Plan (06/09/2021 8:29 AM FILTER WASHER AND PRESSER): Quant gold neg 12/2019 Hep B and [...] showed osteoporosis [facility] 08/2019---[facility] labs reveal positive anti-COMBINATION MACHINE TOOL SETTER antibody which is likely a false positive due to negative ASHLEY. Her father had psoriasis, pt changed from ra to PsA on 03/25/2020. Assessment & Plan (05/04/2021 8:19 AM FILTER WASHER AND PRESSER): Quant gold neg 12/2019 Hep B and [...] showed osteoporosis [facility] 08/2019---[facility] labs reveal positive anti-COMBINATION MACHINE TOOL SETTER antibody which is likely a false positive due to negative ASHLEY. Her father had psoriasis, pt changed from ra to PsA on 03/25/2020. Assessment & Plan (03/31/2021 9:20 AM FILTER WASHER AND PRESSER): Quant gold neg 12/2019 Hep B and [...] showed osteoporosis [facility] 08/2019---[facility] labs reveal positive anti-COMBINATION MACHINE TOOL SETTER antibody which is likely a false positive [...] showed osteoporosis [facility] 08/2019---[facility] labs reveal positive anti-COMBINATION MACHINE TOOL SETTER antibody which is likely a false positive [...] showed osteoporosis [facility] 08/2019---[facility] labs reveal positive anti-COMBINATION MACHINE TOOL SETTER antibody which is likely a false positive [...] showed osteoporosis [facility] 08/2019---[facility] labs reveal positive anti-COMBINATION MACHINE TOOL SETTER antibody which is likely a false positive [...] showed osteoporosis [facility] 08/2019---[facility] labs reveal positive anti-COMBINATION MACHINE TOOL SETTER antibody which is likely a false positive due to negative ASHLEY. Her father had psoriasis, pt changed from ra to PsA on 03/25/2020. Assessment & Plan (06/03/2020 2:56 PM FILTER WASHER AND PRESSER): Quant gold neg 12/2019 Hep B and [...] showed osteoporosis [facility] 08/2019---[facility] labs reveal positive anti-COMBINATION MACHINE TOOL SETTER antibody which is likely a false positive due to negative ASHLEY. Her father had psoriasis, pt changed from ra to PsA on 03/25/2020. Assessment & Plan (03/25/2020 3:03 PM FILTER WASHER AND PRESSER): Quant gold neg 12/2019 HLA B27 negative [...] showed osteoporosis [facility] 08/2019---[facility] labs reveal positive anti-COMBINATION MACHINE TOOL SETTER antibody which is likely a false positive due to negative ASHLEY. Her father had psoriasis, pt changed from ra to PsA on 03/25/2020. Assessment & Plan (03/24/2020 7:28 AM FILTER WASHER AND PRESSER): Quant gold neg 12/2019 HLA B27 negative [...] showed osteoporosis [facility] 08/2019---[facility] labs reveal positive anti-COMBINATION MACHINE TOOL SETTER antibody which is likely a false positive [...] showed osteoporosis [facility] 08/2019---[facility] labs reveal positive anti-COMBINATION MACHINE TOOL SETTER antibody which is likely a false positive [...] showed osteoporosis [facility] 08/2019---[facility] labs reveal positive anti-COMBINATION MACHINE TOOL SETTER antibody which is likely a false positive [...] showed osteoporosis [facility] 08/2019---[facility] labs reveal positive anti-COMBINATION MACHINE TOOL SETTER antibody which is likely a false positive [...] showed osteoporosis [facility] 08/2019---[facility] labs reveal positive anti-COMBINATION MACHINE TOOL SETTER antibody which is likely a false positive [...] showed osteoporosis [facility] 08/2019---[facility] labs reveal positive anti-COMBINATION MACHINE TOOL SETTER antibody which is likely a false positive [...] osteoporosis Assessment & Plan (04/20/2019 4:59 PM FILTER WASHER AND PRESSER): Quant gold neg 10/2018. TPMT nl 17 [...] 01/31/2017 Assessment & Plan (05/28/2022 8:05 AM FILTER WASHER AND PRESSER): Images from the original note were not included. Had orencia infusion 05/02/2022. Continue orencia monotherapy. Off arava due to lipase elevation. Seeing gi at [facility] now. [place] and egd utd and nl in past year per pt. Had a nl pancreatic US recently with gi. Past serologies: [facility] panel 08/2019---labs reveal positive anti-COMBINATION MACHINE TOOL SETTER antibody which is likely a false positive due to negative ASHLEY. RF neg but has a possible family hx of psoriatic arthritis (father) so if she develops psoriasis diagnosis will change to psoriatic arthritis. Rt hand US 09/2019 showed: F/u 1 month. Assessment & Plan (02/26/2022 12:12 PM FILTER WASHER AND PRESSER): Images from the original note were not included. High cdai. Her orencia is scheduled tomorrow. Continue orencia monotherapy. Off arava due to lipase elevation. Seeing gi at [facility] now. [place] and egd utd and nl in past year per pt. Had a nl pancreatic US recently with gi. She could be flaring up since her orencia is due tomorrow, overall she still feels that it is helping her joints. Past serologies: [facility] panel 08/2019---labs reveal positive anti-COMBINATION MACHINE TOOL SETTER antibody which is likely a false positive [...] infections. Seeing gi at [facility] now for her elevated lipase. [place] and egd utd and nl in past year per pt. If labs stable will restart low dose arava 10mg po every day. To stay off orencia until recovered from rt knee surgery. Past serologies: [facility] panel 08/2019---labs reveal positive anti-COMBINATION MACHINE TOOL SETTER antibody which is likely a false positive [...] tomorrow. Seeing gi at [facility] now. [place] and egd utd and nl in past year per pt. Due to burden of dz will give her a short course of oral prednisone. Discussed risks and se of systemic steroids. Past serologies: [facility] panel 08/2019---labs reveal positive anti-COMBINATION MACHINE TOOL SETTER antibody which is likely a false positive [...] tomorrow. Seeing gi at [facility] now. [place] and egd utd and nl in past year per pt. Due to burden of dz will give her a short course of oral prednisone. Discussed risks and se of systemic steroids. Past serologies: [facility] panel 08/2019---labs reveal positive anti-COMBINATION MACHINE TOOL SETTER antibody which is likely a false positive [...] dr arias for her pancreatitis . [place] and egd utd and nl in past year per pt. Seen with dr woodruff today. Past serologies: [facility] panel 08/2019---labs reveal positive anti-COMBINATION MACHINE TOOL SETTER antibody which is likely a false positive due to negative ASHLEY. RF neg but has a possible family hx of psoriatic arthritis (father) so if she develops psoriasis diagnosis will change to psoriatic arthritis. Rt hand US 09/2019 showed: F/u 1 month. Assessment & Plan (06/28/2021 10:22 AM FILTER WASHER AND PRESSER): Images from the original note were not [...] Past serologies: [facility] panel 08/2019---labs reveal positive anti-COMBINATION MACHINE TOOL SETTER antibody which is likely a false positive due to negative ASHLEY. RF neg but has a possible family hx of psoriatic arthritis (father) so if she develops psoriasis diagnosis will change to psoriatic arthritis. Rt hand US 09/2019 showed: F/u 1 month. Assessment & Plan (06/15/2021 10:46 AM FILTER WASHER AND PRESSER): Images from the original note were not [...] Past serologies: [facility] panel 08/2019---labs reveal positive anti-COMBINATION MACHINE TOOL SETTER antibody which is likely a false positive due to negative ASHLEY. RF neg but has a possible family hx of psoriatic arthritis (father) so if she develops psoriasis diagnosis will change to psoriatic arthritis. Rt hand US 09/2019 showed: F/u 1 month. Assessment & Plan (06/09/2021 10:16 AM FILTER WASHER AND PRESSER): Images from the original note were not [...] Past serologies: [facility] panel 08/2019---labs reveal positive anti-COMBINATION MACHINE TOOL SETTER antibody which is likely a false positive due to negative ASHLEY. RF neg but has a possible family hx of psoriatic arthritis (father) so if she develops psoriasis diagnosis will change to psoriatic arthritis. Rt hand US 09/2019 showed: F/u 1 month. Assessment & Plan (06/09/2021 8:29 AM FILTER WASHER AND PRESSER): Images from the original note were not [...] Past serologies: [facility] panel 08/2019---labs reveal positive anti-COMBINATION MACHINE TOOL SETTER antibody which is likely a false positive due to negative ASHLEY. RF neg but has a possible family hx of psoriatic arthritis (father) so if she develops psoriasis diagnosis will change to psoriatic arthritis. Rt hand US 09/2019 showed: F/u 1 month. Assessment & Plan (05/05/2021 10:11 PM FILTER WASHER AND PRESSER): Images from the original note were not [...] Past serologies: [facility] panel 08/2019---labs reveal positive anti-COMBINATION MACHINE TOOL SETTER antibody which is likely a false positive due to negative ASHLEY. RF neg but has a possible family hx of psoriatic arthritis (father) so if she develops psoriasis diagnosis will change to psoriatic arthritis. Rt hand US 09/2019 showed: F/u 1 month. Assessment & Plan (03/31/2021 9:24 AM FILTER WASHER AND PRESSER): Images from the original note were not [...] Past serologies: [facility] panel 08/2019---labs reveal positive anti-COMBINATION MACHINE TOOL SETTER antibody which is likely a false positive [...] Past serologies: [facility] panel 08/2019---labs reveal positive anti-COMBINATION MACHINE TOOL SETTER antibody which is likely a false positive [...] Past serologies: [facility] panel 08/2019---labs reveal positive anti-COMBINATION MACHINE TOOL SETTER antibody which is likely a false positive [...] Past serologies: [facility] panel 08/2019---labs reveal positive anti-COMBINATION MACHINE TOOL SETTER antibody which is likely a false positive due to negative ASHLEY. RF neg but has a possible family hx of psoriatic arthritis (father) so if she develops psoriasis diagnosis will change to psoriatic arthritis. Rt [facility] 09/2019 showed: Assessment & Plan (07/18/2020 8:24 AM CDT): Images from the original note were not included. High cdai. On imuran to 100mg bid and Stelara. Discussed potential se and risks of stelara tx. To see her gi for her diarrhea, she is due for colonoscopy. Continue imuran. To get covid 19 vaccine when available. Past serologies: [facility] panel 08/2019---labs reveal positive anti-COMBINATION MACHINE TOOL SETTER antibody which is likely a false positive due to negative ASHLEY. RF neg but has a possible family hx of psoriatic arthritis (father) so if she develops psoriasis diagnosis will change to psoriatic arthritis. Rt [facility] 09/2019 showed: Assessment & Plan (06/03/2020 5:27 PM FILTER WASHER AND PRESSER): Images from the original note were not [...] Past serologies: [facility] panel 08/2019---labs reveal positive anti-COMBINATION MACHINE TOOL SETTER antibody which is likely a false positive due to negative ASHLEY. RF neg but has a possible family hx of psoriatic arthritis (father) so if she develops psoriasis diagnosis will change to psoriatic arthritis. Rt [facility] 09/2019 showed: Assessment & Plan (03/25/2020 3:01 PM FILTER WASHER AND PRESSER): Images from the original note were not [...] Past serologies: [facility] panel 08/2019---labs reveal positive anti-COMBINATION MACHINE TOOL SETTER antibody which is likely a false positive due to negative ASHLEY. RF neg but has a possible family hx of psoriatic arthritis (father) so if she develops psoriasis diagnosis will change to psoriatic arthritis. Rt [facility] 09/2019 showed: Assessment & Plan (03/24/2020 7:29 AM FILTER WASHER AND PRESSER): Images from the original note were not included. [place] zapien Wants to go back to sq orencia, gave pt 1 mo of samples and will start approval. Can't come in for iv orencia, her dad is on hospice. Increase imuran to 100mg bid, check cbc/cmp in 2 weeks and f/u in 1month. Past serologies: [facility] panel 08/2019---labs reveal positive anti-COMBINATION MACHINE TOOL SETTER antibody which is likely a false positive due to negative ASHLEY. RF neg but has a possible family hx of psoriatic arthritis (father) so if she develops psoriasis diagnosis will change to psoriatic arthritis. Rt [facility] 09/2019 showed: Assessment & Plan (02/19/2020 11:34 AM CDT): [place] zapien Wants to go back to sq orencia, gave pt 1 mo of samples and will start approval. Can't come in for iv orencia, her dad is on hospice. Increase imuran to 100mg bid, check cbc/cmp in 2 weeks and f/u in 1month. Past serologies: [facility] panel 08/2019---labs reveal positive anti-COMBINATION MACHINE TOOL SETTER antibody which is likely a false positive due to negative ASHLEY. RF neg but has a possible family hx of psoriatic arthritis (father) so if she develops psoriasis diagnosis will change to psoriatic arthritis. Rt [facility] 09/2019 showed: Assessment & Plan (01/22/2020 [...] Past serologies: [facility] panel 08/2019---labs reveal positive anti-COMBINATION MACHINE TOOL SETTER antibody which is likely a false positive [...] every day. [facility] panel 08/2019---labs reveal positive anti-COMBINATION MACHINE TOOL SETTER antibody which is likely a false positive due to negative ASHLEY. Otherwise labs look good. No evidence of a new autoimmune connective tissue disease. Cont orencia sq and imuran 100mg po qhs. [place] better on iv orencia, will change from [...] since resolved. [facility] panel 08/2019---labs reveal positive anti-COMBINATION MACHINE TOOL SETTER antibody which is likely a false positive [...] of orencia. [facility] panel 08/2019---labs reveal positive anti-COMBINATION MACHINE TOOL SETTER antibody which is likely a false positive [...] of orencia. [facility] panel 08/2019---labs reveal positive anti-COMBINATION MACHINE TOOL SETTER antibody which is likely a false positive [...] wnl. Assessment & Plan (04/23/2019 1:46 PM FILTER WASHER AND PRESSER): High cdai. On orencia IV but has [...] citrate. Assessment & Plan (06/03/2020 2:56 PM FILTER WASHER AND PRESSER): Multiple kidney stones for over 10 yrs, [...] Father Keegan Balbir Arthritis Father's Brother Cash aBlbir Arthritis Father's Sister 1 AquilesEvangelina Smith Diabetes [...] on file Legal Sex Female 9:24 PM FILTER WASHER AND PRESSER Gender Identity Female 08/14/2022 11:32 AM CDT [...] Vaccine (1 of 2) 2024 Influenza Vaccine (#1) 2024 0, 02/05/2018, 01/30/2017, Additional history exists DTaP/Tdap/Td [...] HEPATITIS C AB Routine 06/29/2015 2:43 PM FILTER WASHER AND PRESSER from Last 3 Months or Most Recently Relevant to Health Maintenance Results * ThinPrep Pap with HPV (12/24/2018 3:41 PM CDT) 12/24/2018 3:41 PM CDT 12/25/2018 8:54 AM CDT Narrative [facility] - 12/26/2018 2:53 PM CDT [facility] Department of Pathology [address] [place] [id number] Final Report with Addendum Patient Name: JULIAN SAUER Address: [address] [place] [address] Gender: F : 1975 (Age: 43) Service: Laboratory Location: Lab [facility] #: [id number] Patient Type: Ref Lab Taken: 12/24/2018 Received: 12/25/2018 Accessioned:: 12/26/2018 Reported: 12/26/2018 Physician(s): Curtis Oseguera M.D. [facility] Diagnosis: Source of Specimen: SCREENING IMAGED PAP w/ HPV Specimen Adequacy: - Satisfactory for evaluation; endocervical/transformation zone component present General Category: - Negative for intraepithelial lesion or malignancy NAEEM Monatno(ASCP) Report Electronically Reviewed and Signed Out By NAEEM Montano(ASCP) 12/26/2018 14:53:08 Addenda: HPV RNA Test Interpretation NEGATIVE for types 16, 18, 31, 33, 35, 39, 45, 51, 52, 56, 58, 59, 66 and 68. Test performed utilizing Gen-Probe Aptima assay. NAEEM Carrera(ASCP) Report Electronically Reviewed and Signed Out By WALDEMAR CarreraASCP) 12/26/2018 12:46:00 Specimen(s) Received: A: SCREENING IMAGED [...] determined by the Surgical Pathology Department at [facility] as part of an ongoing quality assurance practice manager program and in compliance with federally [...] characteristics determined by the Surgical Pathology Department [facility]. It has not been cleared or approved by the U. S. Food and Drug Administration. Curtis Oseguera MD LAB CYTOLOGY ORDERABLES Final Result Performing Organization Address City/[facility] Co de Phone Number [address] [phone] * Serum Hepatitis C ab (06/29/2015 2:43 PM FILTER WASHER AND PRESSER) HCV ab Non-Reacti ve Non-Reacti ve HISTORICAL RESULTS Serum 06/29/2015 2:43 PM FILTER WASHER AND PRESSER Miriam VALLE LAB BLOOD ORDERAB LES Final Result Performing Organization Address City/[facility] Co de Phone Number HISTORICAL RESULTS from Last 3 Months or Most Recently Relevant to Health Maintenance Insurance [facility] [employer] [place] [employer] [place] [employer] [place] Care Teams Assault Amphibious Vehicle Officer Relationship Specialty Start Date End Date Bhupinder Tobias MD [address] [place] [address] PCP - General Internal Medicine 06/03/20 Cash Woodruff III, MD [address] [place] [address] Rheumatology 04/12/17 Jorge Aguiar MD [address] [facility] [address] [place] [address] Consulting Physician Urology 11/10/20 Khoa Arias MD [address] [place] [address] Referring Physician Gastroenterology 03/20/21
--- OUTSIDE RECORDS SUMMARY | 2024-10-30 15:46 | XMS_ITS | Continuity of Care Document ---
Author Organization [facility] Address [address] [place] [address] Phone Care Team Providers Care Device Test Engineer Name Role Phone Amadeo Arias [...] Copied on Encounter OFFICE/OUTPAT IENT VISIT EST [facility], [address] [address], [place], [address], tel:[phone] [facility] [place] Patellofemoral instability, rightOther specified sprain of right wrist, initial encounter 0 6 Hugo Childs. [address], [place], [place], [id number] . tel: [phone] [facility], [address], [place], [address], [place] tel:[phone] [facility] Acute bilateral low back pain without sciaticaLeft hip painArthralgia of right hipPatellofemo ral instability, leftPatellofem oral instability, right 6 Hugo Childs. [address], [place], [place], [id number] . tel: [phone] OFFICE CONSULTATION [facility], [address], [place], [address], tel:[phone] [facility] [place] Patellofemoral instability, rightPatellofe moral instability, leftArthralgia of right hipLeft hip painAcute bilateral low back pain without sciatica 201 6 Hugo Childs. [address], [place], [place], [id number] . tel: [phone] Referring Provider: Michelle De La Torre[address], [place], [address] . tel:[phone] Family History Family Member Type Diagnosis Age At Onset Sister Problem (finding) Alive and well Payers Payer name Insurance type Covered democrat ID Authoriza tion(s) [facility] Choice/Choice Plus [id number] Social History Type Description Quantity Date Captured [...]
--- OUTSIDE RECORDS SUMMARY | 2024-10-30 15:46 | XMS_ITS | Clinical Summary ---
Author Organization [facility] [employer] Address [address] [place] [address] Care Team Providers Care Head Stock Operator Name Role Phone Jonathan Hartman RN Unavailable [phone] Feliciano Dash MD Primary Care Provider [phone] Source Comments [facility],non-owned Affiliates and Associated Physician Practices is amultiple site organization consisting of ambulatory clinics and hospital sitesin [place], [place], [place] and [place]. This disclosure is being madepursuant to the Care Everywhere program and may not contain all information available regarding this patient. Last updated 18.[facility] Allergies Active Allergy Reactions [...] transdermal route every 24 hours. Obtains from [facility] in [place]. 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 Obtains from [facility] in [place]. 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 Gender Identity Female 01/29/2017 1:09 PM CDT [...] - COLON CA SCREENING 1974 MAMMOGRAM 1974 COVID-19 VACCINE (#1) 1979 HIV SCREENING 1989 HEPATITIS C SCREENING 05/16/1992 DTAP/TDAP/TD VACCINES (1 - Tdap) 1993 HEPATITIS B VACCINE (1 of 3 - 19+ 3-dose series) 1993 PNEUMOCOCCAL VACCINE 50+ (1 of 2 - PCV) 1993 ZOSTER VACCINE (1 of 2) 1993 PAP SMEAR 1995 LIPID TESTING 08/01/2020 08/02/2015 DEPRESSION SCREENING 04/22/2024 INFLUENZA VACCINE (#1) 2024 01/30/2017 COLON MONITORING 12/14/2025 12/15/2015, , [...] Armando Corona (Doctor), Myranda Keys, Enma Medina, Bag End Sewer Patient Profile: 40F pmh 40F pmh depression, [...] are negative Procedure Code(s): --- Professional --- 30376, Colonoscopy, flexible; with biopsy, single or multiple --- Technical --- 83152, Colonoscopy, flexible; with biopsy, single or multiple Diagnosis Code(s): --- Professional --- R10.30, Lower abdominal pain, unspecified --- Technical --- R10.30, Lower abdominal pain, unspecified CPT copyright 2015 [employer]. All rights reserved. The codes documented in this report are preliminary and upon vp respiratory review may be revised to meet current compliance requirements. Armando Corona, 12/15/2015 12:47:51 PM This report has been signed electronically. Number of Addenda: 0 Note Initiated On: 12/15/2015 12:23 PM [facility] 12/15/2015 12:2 3 PM CDT Narrative Transcriptions Armando Corona MD - 12/15/2015 12:53 PM CDT Neg colon s/p random bx us Armando Corona MD GI PROCEDURE ORDERABLES Edited R esult - Final [facility] * (ABNORMAL) LIPID PROFILE (08/02/2015 10:02 AM CDT) Cholesterol 184 <200 mg/dL 08/02/2015 10:49 AM CDT [facility] Triglycerides 156(H) <150 mg/dL 08/02/2015 10:49 AM CDT [facility] HDL Cholesterol 43 >40 mg/dL 08/02/2015 10:49 AM CDT [facility] LDL Calculated 110 <130 mg/dL 08/02/2015 10:49 AM CDT [facility] VLDL Calculated 31(H) <=30 mg/dL 08/02/2015 10:49 AM CDT [facility] Chol HDL Ratio 4.3 <4.5 08/02/2015 10:49 AM CDT [facility] LDL/HDL Ratio 2.6 <5.0 08/02/2015 10:49 AM CDT [facility] Blood BLOOD SPECIMEN / Unknown Lab Venipuncture / Unknown 08/02/2015 10:02 AM CDT 08/02/2015 10:13 AM CDT us Chucho Hinton MD LAB - CHEMISTRY ORDERABLES Fi nal Result [facility] [address] [place] [address] from Last 3 Months or Most Recently Relevant to Health Maintenance Insurance ANTH [facility] SELF PAY NO INSURANCE Member Subscriber Plan / Payer (Ef fective for All Dates) Name:Julian Sauer Member ID:Not on file Relation to Subscriber:Not on file Name:JULIAN SAUER Subscriber ID:Not on file (Home) Address: [address] [place] [address] Payer ID:Not on file Group ID:Not on file Type:Self Pay Address: [place], [place] [employer] [facility] SELF PAY NO INSURANCE Member Subscriber Plan / Payer (Ef fective for All Dates) Name:Julian Sauer Member ID:Not on file Relation to Subscriber:Not on file Name:JULIAN SAUER Subscriber ID:Not on file Address: [address] [place] [address] Payer ID:Not on file Group ID:Not on file Type:Self Pay Address: [place], [place] [facility] SELF PAY NO INSURANCE Member Subscriber Plan / Payer (Ef fective for All Dates) Name:Julian Sauer Member ID:Not on file Relation to Subscriber:Not on file Name:JULIAN SAUER Subscriber ID:Not on file Address: [address] [place] [address] Payer ID:Not on file Group ID:Not on file Type:Self Pay Address: [place], [place] Advance Directives * Full Code (Latest Code Status on File) Date Activated Date Inactivated Comments 01/29/2017 7:53 PM 02/02/2017 1:02 PM * Full Code Date Activated Date Inactivated Comments 08/02/2015 1:57 AM 08/05/2015 3:00 PM * Full Code Date Activated Date Inactivated Comments 07/13/2015 10:36 PM 07/16/2015 3:55 PM Care Teams Head Stock Operator Relationship Specialty Start Date End Date Feliciano Dash MD [address] [facility] [address] [place] [address] PCP - General 07/14/21 Jonathan Hartman RN Ginning Operator 07/14/15
--- OUTSIDE RECORDS SUMMARY | 2024-10-30 15:46 | XMS_ITS | Clinical Summary ---
Author Organization [facility] Address [address], [address] [address] Phone Care Team Providers Care Manager Test Name Role Phone Marbin Fair DO Unavailable [phone] Amadeo Hernandez MD Unavailable Isaiah Quiros MD Primary Care Provider [phone] Medications cholestyramine (QUESTRAN) 4 GM Pack Take 1 Packet by mouth 2 times daily (with meals). 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
--- OUTSIDE RECORDS SUMMARY | 2024-10-30 15:46 | XMS_ITS | Clinical Summary ---
Author Organization [facility] Address [address] [place] [address] Phone Care Team Providers Care Investigations Consultant Name Role Phone Isaiah Quiros MD Primary Care Provider [phone] Allergies No known active allergies Medications topiramate [...] tablet Take 300 mg by mouth daily office runner. Active pregabalin (LYRICA) 100 mg Capsule Take [...] Comments Blood Pressure 131/87 04/01/2019 10:31 AM HOUSE DIRECTOR Pulse 101 04/01/2019 10:31 AM HOUSE DIRECTOR Temperature 36.4 C (97.6 F) 12/29/2018 12:00 PM CDT Respiratory Rate 18 12/29/2018 12:00 PM CDT Oxygen Saturation 99% 12/29/2018 12:00 PM CDT Inhaled Oxygen Concentration - - Weight 90.5 kg (199 lb 9.6 oz) 04/01/2019 10:31 AM HOUSE DIRECTOR Height 170.7 cm (5' 7.2) 04/01/2019 10:31 AM CS T Body Mass Index 31.08 04/01/2019 10:31 AM HOUSE DIRECTOR Plan of Treatment Health Maintenance Due Date [...] Q 5 years 2019 INFLUENZA VACCINE (#1) 2024 01/30/2017 DTAP/TDAP/TD VACCINES (2 - Td or Tdap) 05/10/2027 Insurance [employer] BLUE ACCESS/TRUE BLUE PPO BS BLUE ACCESS/TRUE BLUE PPO Advance Directives For more information, please contact: [phone] * Full Code (Latest Code Status on File) Date Activated Date Inactivated Comments 12/27/2018 10:12 AM 12/29/2018 7:43 PM Care Teams Investigations Consultant Relationship Specialty Start Date End Date Isaiah Quiros MD [address] [place] [address] PCP - General Internal Medicine 04/16/18
--- OUTSIDE RECORDS SUMMARY | 2024-10-30 15:46 | XMS_ITS | Clinical Summary ---
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 Gender Identity Not on file Sexual Orientation Not on file Last Filed Vital Signs Vital Sign Reading Time Taken Comments Blood Pressure 108/79 03/01/2021 3:00 PM JAVASCRIPT PROGRAMMER Pulse 79 03/01/2021 3:00 PM JAVASCRIPT PROGRAMMER Temperature 36.2 C (97.2 F) 03/01/2021 12:34 PM JAVASCRIPT PROGRAMMER Respiratory Rate 16 03/01/2021 3:00 PM JAVASCRIPT PROGRAMMER Oxygen Saturation 98% 03/01/2021 3:00 PM JAVASCRIPT PROGRAMMER Inhaled Oxygen Concentration - - Weight 86.1 kg (189 lb 13.1 oz) 021 12:34 PM JAVASCRIPT PROGRAMMER Height 167.6 cm (5' 6) 03/01/2021 12:3 4 PM JAVASCRIPT PROGRAMMER Body Mass Index 30.64 03/01/2021 12:34 PM JAVASCRIPT PROGRAMMER Plan of Treatment Health Maintenance Due [...] patient's age to complete this topic Insurance [facility] Care Teams Launderette Attendant Relationship Specialty Start Date End Date Bhupinder Tobias MD [address] [place] [address] [address] PCP - General INTERNAL MEDICINE 03/01/21
[2024-10-30 15:47] VITALS: BP 136/88; PULSE 102; RESP 16; TEMP 36.7; O2SAT 98
--- NOTE | 2024-10-30 15:55 | ED_ITS ---
HPI - Abdominal Pain General Chief Complaint: Abdominal Pain <Shabana Wayne PA-C - Last Filed: 10/30/24 19:36> Stated Complaint: LUQ pain <Shabana Wayne PA-C - Last Filed: 10/30/24 19:36> Time Seen by Provider: 10/30/24 18:55 <Shabana Wayne PA-C - Last Filed: 10/30/24 19:36> Focused HPI: 49-year-old female presents emergency department for left upper quadrant abdominal pain for the past several weeks. Patient states the pain is located or left upper quadrant wraps around to her side. She it is concerned it is caused by her pancreas. She is evaluated in our ED about 1 month ago for similar presentation found have an elevated lipase which was chronic per chart review. The patient states she was taking Wegovy at that time but discontinued about 2 weeks ago. She continues to have pain to her left upper quadrant which prompted her to come to the ED. She reports associated nausea vomiting, constipation. She also notes she had a fever of 100-101 this morning and took some Tylenol with improvement. She states she feels like she has tender lymph nodes on her neck. Denies sore throat, cough or congestion, chest pain, dysuria, hematuria. Endorses a prior history of hysterectomy and oophorectomy. GENERAL: Well-appearing, well-nourished, and in no acute distress. HEAD: Normocephalic, atraumatic. CHEST: Clear to auscultation. ?No respiratory distress. ABD: Tenderness to the left upper quadrant and epigastrium with no rebound guarding or rigidity. HEART: Regular rate and rhythm.? NEURO: ?Alert and oriented x3. Patient screened in triage and initial orders placed.? ?Additional care and disposition to be based upon?diagnostic testing and treatment. <Shabana Wayne PA-C - Last Filed: 10/30/24 19:36> Focused HPI: 49-year-old female presents emergency department for left upper quadrant abdominal pain for the past several weeks. Patient states the pain is located or left upper quadrant wraps around to her side. She it is concerned it is caused by her pancreas. She is evaluated in our ED about 1 month ago for similar presentation found have an elevated lipase which was chronic per chart review. The patient states she was taking Wegovy at that time but discontinued about 2 weeks ago. She continues to have pain to her left upper quadrant which prompted her to come to the ED. She reports associated nausea vomiting, constipation. Denies sore throat, cough or congestion, chest pain, dysuria, hematuria. Endorses a prior history of hysterectomy and oophorectomy. GENERAL: Well-appearing, well-nourished, and in no acute distress. HEAD: Normocephalic, atraumatic. CHEST: Clear to auscultation. ?No respiratory distress. ABD: Tenderness to the left upper quadrant and epigastrium with no rebound guarding or rigidity. HEART: Regular rate and rhythm.? NEURO: ?Alert and oriented x3. Patient screened in triage and initial orders placed.? ?Additional care and disposition to be based upon?diagnostic testing and treatment. <Gaurav De MD - Last Filed: 10/30/24 19:37> Related Data Home Medications: Home Medications ?Medication ?Instructions ?Recorded ?Confirmed ?Last Taken ?Type bupropion HCl 300 mg 24 hr tablet, 300 mg PO DAILY 05/02/20 10/14/24 06/11/24 History extended release (Wellbutrin XL) potassium citrate 15 mEq (1,620 1,620 mg PO BID 05/02/20 10/14/24 06/11/24 History mg) tablet,extended release propranolol 10 mg tablet 10 mg PO QAM 05/02/20 09/04/24 06/12/24 History trazodone 100 mg tablet 100 mg PO HS 05/02/20 10/14/24 06/11/24 History alprazolam 0.5 mg tablet 0.5 mg PO TID PRN Anxiety 09/15/20 10/14/24 06/11/24 History cholecalciferol (vitamin D3) 125 5,000 unit PO DAILY 09/15/20 10/14/24 06/11/24 History mcg (5,000 unit) tablet (Vitamin D3) cyanocobalamin (vitamin B-12) 1,000 mcg PO DAILY 09/15/20 10/14/24 06/11/24 History 1,000 mcg tablet duloxetine 30 mg capsule,delayed 30 mg PO DAILY 04/29/24 10/14/24 06/11/24 History release <Shabana Wayne PA-C - Last Filed: 10/30/24 19:36> Allergies/Adverse Reactions: Allergies Allergy/AdvReac Type Severity Reaction Status Date / Time No Known Allergies Allergy Verified 10/14/24 07:21 <Shabana Wayne PA-C - Last Filed: 10/30/24 19:36> [facility] Past Medical History Medical History: Medical History (Updated 10/30/24 @ 19:34 by Gaurav De MD) BMI 33.0-33.9,adult Aspiration into airway Colon cancer screening Elevated lipase Decreased appetite LLQ pain Arthritis Osteoporosis Psoriasis Excessive thirst UTI (urinary tract infection) IBS (irritable bowel syndrome) Atrial tachycardia Hoarseness Short-term memory loss Chills History of kidney stones Abdominal pain in female Abnormal serum lipase level Abnormal weight gain Acute cystitis without hematuria Acute diverticulitis Acute non-recurrent pansinusitis Acute shoulder pain Adult idiopathic generalized osteoporosis Age-related osteoporosis with current pathological fracture, unspecified ankle and foot, initial encounter for fracture Anemia Anxiety Arthralgia Arthritis of both knees Bilateral tinnitus Body mass index (bmi) 39.0-39.9, adult (01/12/19) Bone spur of left foot Chronic migraine Chronic narcotic use Chronic pain syndrome Cyst of ovary Diarrhea Dietary counseling and surveillance (08/25/15) Diverticulitis of large intestine without perforation or abscess Diverticulosis of intestine, part unspecified, without perforation or abscess with bleeding Duodenal ulcer Dysphagia Dysuria Meredith-Danlos syndrome Epigastric pain Establishing care with new doctor, encounter for Fatigue Fear of flying Fibromyalgia Gastric ulcer Gastroesophageal reflux disease Generalized abdominal pain Generalized anxiety disorder History of dislocation of knee Hyperextension deformity of knee Hyperthyroidism Hypokalemia Hypovitaminosis D Immunosuppressed status Impingement syndrome of right shoulder Irregular menses 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 syndrome with constipation 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 diarrhea longterm use of drug Low TSH level Low back pain Luteal cystic ovary disease Microscopic hematuria Migraine, unspecified, not intractable, without status migrainosus Multinodular goiter Muscle weakness of lower extremity Musculoskeletal pain Nausea Nephrolithiasis Nonintractable migraine Osteoarthritis of spine with radiculopathy, lumbar region Other chronic pain Overweight (11/22/16) PUD (peptic ulcer disease) Pain in both hands Pain of both hip joints Pain of left heel Pneumonia due to infectious organism Polyuria Prepatellar bursitis of both knees Prepatellar bursitis, left knee Rheumatoid arthritis of multiple sites with negative rheumatoid factor Rheumatoid arthritis of unspecified site with involvement of other organs and systems Right lower quadrant abdominal pain Swelling Swelling of finger joint of left hand Thyroid nodule Urinary symptom or sign Urinary tract infection without hematuria Weight loss Yeast vaginitis <Shabana Wayne PA-C - Last Filed: 10/30/24 19:36> Surgical History Surgical History: Surgical History History of hysterectomy 2022 History of knee surgery ANUSHA reconstruction. History of lithotripsy x4. Previous section History of colonoscopy History of tonsillectomy <Shabana Wayne PA-C - Last Filed: 10/30/24 19:36> Family History Family History: Family History (Updated 10/14/24 @ 09:02 by TRAMAINE Jimenez) Mother Patient's mother is in good health Family history of arthritis Father Family history of alcoholism Family history of arthritis Family history of obesity Family history of chronic obstructive pulmonary disease Sibling Patient's sister is in good health Patient's brother is in good health Grandparent Family history of Alzheimer's disease Family history of lung cancer Other Family history of attention deficit hyperactivity disorder (ADHD) <Shabana Wayne PA-C - Last Filed: 10/30/24 19:36> Social History Social History: Social History Smoking packs per day: 0.5 Smoking cigarettes per day: 10.0 Years smoked: 20 Smoking pack-years: 10.00 Smoking status: Former smoker Tobacco type: cigarettes Second hand tobacco smoke exposure: Yes Smoking end date: 06/04/12 Alcohol intake: current Drinks per week: 2 Alcohol use details: 2/MONTH Substance use: never Substance use type: does not use Other substance usage details: STOPPED GUMMIES MAY 2023 Do You Feel Safe in your Home?: Yes Lack of Transportation: No Lack of Food: Never True Current Housing: I Have Housing Concerned About Future Housing: No Difficulty Paying Gas/Electric Bills: No Difficulty Paying for Meds: No Currently Unemployed: No Education: Bachelor's Degree Difficulty w/ Childcare or Family Care: No Living arrangements: with family Additional living arrangements comments: AND CHILDREN Occupation/Education: 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 Head: atraumatic. EYES: EOMI, NOSE: Atraumatic NECK: Trachea midline RESPIRATORY: No increased rate of breathing, CTAB CARDIOVASCULAR: RRR, ABDOMINAL: Patient has epigastric tenderness without guarding or rebound. She also has tenderness over the lateral quadrants bilaterally but no pain around the umbilicus or suprapubic region. MUSCULOSKELETAl: No obvious deformities NEURO: Alert. Moving 4/4 extremities SKIN:: Warm, dry. Normal color PSYCHIATRIC: Normal affect <Gaurav De MD - Last Filed: 10/30/24 19:37> Course Vital Signs Vital signs: Vital Signs Temperature 98.1 F 10/30/24 15:47 Pulse Rate 102 H 10/30/24 15:47 Respiratory Rate 16 10/30/24 15:47 Blood Pressure 136/88 10/30/24 15:47 Pulse Oximetry 98 10/30/24 15:47 Oxygen Delivery Room Air 10/30/24 15:47 Temperature 97.9 F 10/30/24 18:38 Pulse Rate 99 10/30/24 18:38 Respiratory Rate 16 10/30/24 15:47 Blood Pressure 138/86 10/30/24 18:38 Pulse Oximetry 98 10/30/24 18:38 Oxygen Delivery Room Air 10/30/24 15:47 <Shabana Wayne PA-C - Last Filed: 10/30/24 19:36> Vital Signs Temperature 98.1 F 10/30/24 15:47 Pulse Rate 102 H 10/30/24 15:47 Respiratory Rate 16 10/30/24 15:47 Blood Pressure 136/88 10/30/24 15:47 Pulse Oximetry 98 10/30/24 15:47 Oxygen Delivery Room Air 10/30/24 15:47 Temperature 97.9 F 10/30/24 18:38 Pulse Rate 99 10/30/24 18:38 Respiratory Rate 16 10/30/24 15:47 Blood Pressure 138/86 10/30/24 18:38 Pulse Oximetry 98 10/30/24 18:38 Oxygen Delivery Room Air 10/30/24 15:47 <Gaurav De MD - Last Filed: 10/30/24 19:37> MDM - Abdominal Pain MDM Narrative Medical decision making narrative: -Course: This is a 49-year-old female with multiple chronic GI issues including constipation, IBD C, gastritis/GERD/peptic ulcer disease presenting for abdominal pain. Pain appears to be multiple places. She is having epigastric pain that is worse after eating that is associated with nausea vomiting. This is most consistent with peptic ulcer disease or gastritis although she is already on 60 mg of omeprazole twice daily and has sucralfate and antacids at home. She also has Zofran for nausea. Patient notes that she has been constipated. She takes daily [place] for chronic pain. When she stops taking [place] she notices that her constipation resolved but never truly goes away. She has taken ibuprofen with some improvement in the constipation in the past although that seems to worsen her epigastric pain. Patient's laboratory studies showed chronically elevated lipase. No other significant abnormalities. CT abdomen pelvis showed multiple incidental findings that are not related to her presentation today. It did show constipation which I believe is likely the cause of her lateral abdominal pain. After discussing her symptoms at length the patient is reassured and she has been encouraged follow-up with her GI doctor. I believe that she needs to stop using opiates as constipation may be one of the driving forces of her pain. When she takes opiates her pain she worsens her constipation creating a vicious cycle. She has been encouraged to use stool softeners. I will give her prescription for celecoxib which can provide pain control with less irritation to the stomach. Patient should follow-up with her GI physician return if she develops any new or worsening symptoms. -DDX includes but is not limited to: Peptic ulcer disease, gastritis, GERD, cholecystitis, kidney disease, pyelonephritis, crampy otitis <Gaurav De MD - Last Filed: 10/30/24 19:37> Lab Data Result diagrams: 10/30/24 16:51 10/30/24 16:51 <Shabana Wayne PA-C - Last Filed: 10/30/24 19:36> Labs: Lab Results 10/30/24 10/30/24 Range/Units 16:51 16:52 WBC 7.3 (4.5-10.0) K/mm3 RBC 5.07 (4.2-5.4) M/mm3 Hgb 12.8 (12.0-15.0) g/dL Hct 42.2 (37.0-47.0) % MCV 83.2 (80-100) fl MCH 25.2 L (26-34) pg MCHC 30.3 L (32-36) g/dl RDW 16.9 H (11.5-14.5) % Plt Count 317 (150-375) k/mm3 MPV 8.9 (7.4-10.4) fl Immature Gran % (Auto) 0.8 H (0-0.5) % Neut % (Auto) 66.6 (45.5-73.1) % Lymph % (Auto) 24.0 (18.3-44.2) % [place] % (Auto) 5.7 (2.6-8.5) % Eos % (Auto) 1.8 (0-4.4) % Baso % (Auto) 1.1 (0.2-1.2) % Lymph # (Auto) 1.76 (0.9-3.2) K/mm3 [place] # (Auto) 0.4 (0.1-0.6) K/mm3 Eos # (Auto) 0.1 (0-0.3) K/mm3 Baso # (Auto) 0.1 (0.0-0.1) K/mm3 Abs Immat Gran (auto) 0.06 H (0.00-0.031) K/mm3 Absolute Neuts (auto) 4.9 (1.3-6.7) K/mm3 Absolute Nucleated RBC 0.000 (0.0-0.012) K/mm3 Nucleated RBC % 0.0 (0.0-0.2) % Sodium 137 (137-145) mmol/L Potassium 3.9 (3.4-5.0) mmol/L Chloride 105 (98-107) mmol/L Carbon Dioxide 22 (22-30) mmol/L Anion Gap 10 (4-12) mmol/L BUN 10 (7-17) mg/dL Creatinine 0.98 (0.7-1.0) mg/dL Estim Creat Clear Calc 67 ml/min Estimated GFR 60 (59 - ) Glucose 99 (65-110) mg/dL Calcium 9.2 (8.4-10.2) mg/dL Total Bilirubin 0.3 (0.2-1.3) mg/dL AST 43 H (14-36) U/L ALT 71 H (6-35) U/L Alkaline Phosphatase 73 (38-126) U/L Total Protein 7.5 (6.3-8.2) g/dL Albumin 4.0 (3.5-5.1) g/dL Lipase 622 H (23-300) U/L Urine Color Yellow (Yellow) Urine Appearance Clear (Clear) Urine pH 6.0 (5.0-9.0) Ur Specific [place] 1.021 (1.001-1.035) Urine Protein Negative (Negative) mg/dL Urine Glucose (UA) Negative (Negative) mg/dL Urine Ketones Trace H (Negative) mg/dL Ur Blood (Man) Negative (Negative) Urine Nitrate Negative (Negative) Urine Bilirubin Negative (Negative) Urine Urobilinogen 1.0 (<2.0) mg/dL Leukocyte Esterase Rfl Negative (Negative) KAREL/UL Influenza A (RT-PCR) Negative (Negative) Influenza B (RT-PCR) Negative (Negative) RSV (RT-PCR) Negative (Negative) SARS-CoV-2 RNA (RT-PCR) Negative (Negative) <Shabana Wayne PA-C - Last Filed: 10/30/24 19:36> Lab Results 10/30/24 10/30/24 Range/Units 16:51 16:52 WBC 7.3 (4.5-10.0) K/mm3 RBC 5.07 (4.2-5.4) M/mm3 Hgb 12.8 (12.0-15.0) g/dL Hct 42.2 (37.0-47.0) % MCV 83.2 (80-100) fl MCH 25.2 L (26-34) pg MCHC 30.3 L (32-36) g/dl RDW 16.9 H (11.5-14.5) % Plt Count 317 (150-375) k/mm3 MPV 8.9 (7.4-10.4) fl Immature Gran % (Auto) 0.8 H (0-0.5) % Neut % (Auto) 66.6 (45.5-73.1) % Lymph % (Auto) 24.0 (18.3-44.2) % [place] % (Auto) 5.7 (2.6-8.5) % Eos % (Auto) 1.8 (0-4.4) % Baso % (Auto) 1.1 (0.2-1.2) % Lymph # (Auto) 1.76 (0.9-3.2) K/mm3 [place] # (Auto) 0.4 (0.1-0.6) K/mm3 Eos # (Auto) 0.1 (0-0.3) K/mm3 Baso # (Auto) 0.1 (0.0-0.1) K/mm3 Abs Immat Gran (auto) 0.06 H (0.00-0.031) K/mm3 Absolute Neuts (auto) 4.9 (1.3-6.7) K/mm3 Absolute Nucleated RBC 0.000 (0.0-0.012) K/mm3 Nucleated RBC % 0.0 (0.0-0.2) % Sodium 137 (137-145) mmol/L Potassium 3.9 (3.4-5.0) mmol/L Chloride 105 (98-107) mmol/L Carbon Dioxide 22 (22-30) mmol/L Anion Gap 10 (4-12) mmol/L BUN 10 (7-17) mg/dL Creatinine 0.98 (0.7-1.0) mg/dL Estim Creat Clear Calc 67 ml/min Estimated GFR 60 (59 - ) Glucose 99 (65-110) mg/dL Calcium 9.2 (8.4-10.2) mg/dL Total Bilirubin 0.3 (0.2-1.3) mg/dL AST 43 H (14-36) U/L ALT 71 H (6-35) U/L Alkaline Phosphatase 73 (38-126) U/L Total Protein 7.5 (6.3-8.2) g/dL Albumin 4.0 (3.5-5.1) g/dL Lipase 622 H (23-300) U/L Urine Color Yellow (Yellow) Urine Appearance Clear (Clear) Urine pH 6.0 (5.0-9.0) Ur Specific [place] 1.021 (1.001-1.035) Urine Protein Negative (Negative) mg/dL Urine Glucose (UA) Negative (Negative) mg/dL Urine Ketones Trace H (Negative) mg/dL Ur Blood (Man) Negative (Negative) Urine Nitrate Negative (Negative) Urine Bilirubin Negative (Negative) Urine Urobilinogen 1.0 (<2.0) mg/dL Leukocyte Esterase Rfl Negative (Negative) KAREL/UL Influenza A (RT-PCR) Negative (Negative) Influenza B (RT-PCR) Negative (Negative) RSV (RT-PCR) Negative (Negative) SARS-CoV-2 RNA (RT-PCR) Negative (Negative) <Gaurav De MD - Last Filed: 10/30/24 19:37> Imaging Data Radiologist's impression: ITS Impressions Abdomen/Pelvis CT 10/30/24 18:06 IMPRESSION: 1. No evidence of appendicitis, diverticulitis or intestinal 2. Enhancing lesions in the liver unchanged from previous examination. Obstruction. 3. Constipation. 4. Thickened wall of the urinary bladder. Evaluation for cystitis advised. 5. Bilateral renal cysts. 6. multiple hyperdense areas in both kidneys which may indicate early contrast excretion. Stones are not excluded. Follow-up advised. 7. Fat infiltration of the liver. 8. Trace of pericardial effusion. <Shabana Wayne PA-C - Last Filed: 10/30/24 19:36> ITS Impressions Abdomen/Pelvis CT 10/30/24 18:06 IMPRESSION: 1. No evidence of appendicitis, diverticulitis or intestinal 2. Enhancing lesions in the liver unchanged from previous examination. Obstruction. 3. Constipation. 4. Thickened wall of the urinary bladder. Evaluation for cystitis advised. 5. Bilateral renal cysts. 6. multiple hyperdense areas in both kidneys which may indicate early contrast excretion. Stones are not excluded. Follow-up advised. 7. Fat infiltration of the liver. 8. Trace of pericardial effusion. <Gaurav De MD - Last Filed: 10/30/24 19:37> Discharge Plan Discharge Clinical Impression: Abdominal pain, Chronic, continuous use of opioids, Constipation, Gastritis <Shabana Wayne PA-C - Last Filed: 10/30/24 19:36> Patient Disposition: Home <JULIÁN Cobb Last Filed: 10/30/24 19:36> Condition: Stable <JULIÁN Cobb Last Filed: 10/30/24 19:36> Instructions: Antibiotic Form, Abdominal Pain (ED) <JULIÁN Cobb Last Filed: 10/30/24 19:36> Additional Instructions: You were seen in the emergency department for abdominal pain. I believe this is a combination of gastritis and constipation. Please refrain from using opiates as that is worsening her constipation. Please use stool softeners. Please follow-up with your GI doctor in the next 1 week if possible. If you develop any new or worsening symptoms please return to the ED for re-evaluation. <JULIÁN Cbob Last Filed: 10/30/24 19:36> Patient Language: Citizen Of [place] <JULIÁN Cobb Last Filed: 10/30/24 19:36> Prescriptions: New celecoxib 200 mg capsule 200 mg PO BID Qty: 60 0RF No Action propranolol 10 mg tablet 10 mg PO QAM bupropion HCl [Wellbutrin XL] 300 mg tablet extended release 24 hr 300 mg PO DAILY trazodone 100 mg tablet 100 mg PO HS potassium citrate 15 mEq tablet extended release 1,620 mg PO BID ondansetron 4 mg tablet,disintegrating 4 mg PO Q8H PRN (Reason: nausea and vomiting) Qty: 30 1RF alprazolam 0.5 mg tablet 0.5 mg PO TID PRN (Reason: Anxiety) cyanocobalamin (vitamin B-12) 1,000 mcg Tablet 1,000 mcg PO DAILY cholecalciferol (vitamin D3) [Vitamin D3] 125 mcg (5,000 unit) Tablet 5,000 unit PO DAILY duloxetine 30 mg capsule,delayed release(DR/EC) 30 mg PO DAILY Patient Comments: Says takes at HS ketorolac 10 mg tablet 10 mg PO Q6H 5 Days Qty: 20 0RF Patient Comments: No longer taking pantoprazole 40 mg tablet,delayed release (DR/EC) See Rx Instructions .ROUTE .COMPLEX Qty: 60 11RF Dose Instruction: TAKE 1 TABLET BY MOUTH TWICE DAILY Rx Instructions: TAKE 1 TABLET BY MOUTH TWICE DAILY dicyclomine 20 mg tablet 20 mg PO TID PRN (Reason: abdominal pain) Qty: 120 4RF sumatriptan succinate 6 mg/0.5 mL pen injector See Rx Instructions .ROUTE .COMPLEX Qty: 2 5RF Dose Instruction: INJECT 0.5 ML UNDER SKIN ONCE FOR HEADACH, MAY REPEAT DOSE ONCE IN 1 HOUR IF NOT RELIEVED Rx Instructions: INJECT 0.5 ML UNDER SKIN ONCE FOR HEADACH, MAY REPEAT DOSE ONCE IN 1 HOUR IF NOT RELIEVED hydrocodone-acetaminophen 5-325 mg tablet 1 tablet PO Q8H PRN (Reason: pain) Qty: 75 0RF <Shabana Wayne PA-C - Last Filed: 10/30/24 19:36> Follow-up/Referrals: Jose Zhang DO [Primary Care Provider] - Gagandeep Bauman MD [Physician] - 1 Week (Chronic abdominal pain ) <Shabana Wayne PA-C - Last Filed: 10/30/24 19:36>
[2024-10-30 17:01] LABS: Hematocrit 42.2 % (37.0-47.0); Hemoglobin 12.8 g/dL (12.0-15.0); Immature Granulocyte Percent A 0.8 % (0-0.5); Lymphocytes Absolute Auto 1.76 K/mm3 (0.9-3.2); Mean Corpuscular HGB Conc 30.3 g/dl (32-36); Mean Corpuscular Hemoglobin 25.2 pg (26-34); Mean Corpuscular Volume 83.2 fl (80-100); Nucleated Red Blood Cells Absolute Auto 0.000 K/mm3 (0.0-0.012); Nucleated Red Blood Cells Perc 0.0 % (0.0-0.2); Platelet Count Result 317 k/mm3 (150-375); Red Blood Count 5.07 M/mm3 (4.2-5.4); White Blood Count 7.3 K/mm3 (4.5-10.0)
[2024-10-30 17:02] LABS: Add Urine Microscopic? NO; Appearance Urine Clear (Clear); Glucose Urine UA Negative (Negative); Leukocyte Esterase Ur Negative LEU/UL (Negative); Nitrate Urine Negative (Negative); Specific Grav Ur 1.021 (1.001-1.035)
[2024-10-30 17:15] LABS: Alanine Aminotransferase 71 U/L (6-35); Albumin Level 4.0 g/dL (3.5-5.1); Alkaline Phosphatase 73 U/L (38-126); Anion Gap 10 mmol/L (4-12); Aspartate Amino Transferase 43 U/L (14-36); Bilirubin,Total 0.3 mg/dL (0.2-1.3); Blood Urea Nitrogen 10 mg/dL (7-17); Calcium 9.2 mg/dL (8.4-10.2); Carbon Dioxide 22 mmol/L (22-30); Chloride 105 mmol/L (98-107); Estimated CRCL calculation 67 ml/min; Estimated Glomerular Filt Rate 60; Glucose 99 mg/dL (65-110); Lipase 622 U/L (23-300); Potassium 3.9 mmol/L (3.4-5.0); Sodium 137 mmol/L (137-145); Total Protein 7.5 g/dL (6.3-8.2)
[2024-10-30 17:37] LABS: Influenza A QL RT-PCR Negative (Negative); Influenza B QL RT-PCR Negative (Negative); RSV RNA, RT-PCR Negative (Negative); SARS-CoV-2 RNA PCR Negative (Negative)
[2024-10-30 18:38] VITALS: BP 138/86; PULSE 99; TEMP 36.6; O2SAT 98
--- OUTSIDE RECORDS SUMMARY | 2024-10-30 19:29 | XMS_ITS | Clinical Summary ---
Author Organization [place] [id number] Address [address] [place] [address] Phone Care Team Providers Care Facility Coordinator Name Role Phone Kumar CARRILLO MD, John J. Unavailable [phone] Bhupinder Tobias MD Primary Care Provider [phone] Jorge Aguiar MD Unavailable [phone] Khoa Arias MD Unavailable [phone] Allergies No known active allergies Medications [...] (08/30/2021): Added automatically from request for surgery [id number] Abdominal pain 03/31/2021 Assessment & Plan (06/28/2021 10:08 AM IT NETWORK ENGINEER): Recently dx with mild pancreatitis. Needs lipase/amylase rechecked. Still has some upper abd pain. Advised pt to f/u with GI also. Assessment & Plan (06/19/2021 8:52 AM IT NETWORK ENGINEER): Had abd pain early this month, check amyl/lip and ua. Pain has resolved. Assessment & Plan (05/05/2021 10:13 PM IT NETWORK ENGINEER): Having abd pain, bloating, constipation. On meds for IBS and also using suppositories to have BM. Incidental findings of mesenteric fat stranding (adenitis or panniculitis) on abd CT. Awaiting further eval by Dr. Arias. Assessment & Plan (03/31/2021 8:44 AM IT NETWORK ENGINEER): Elevated lipase. Imuran stopped. Pt advised to [...] 04/23/2019 Assessment & Plan (03/24/2020 7:29 AM IT NETWORK ENGINEER): Normal serum immunoglobulins. Assessment & Plan (01/21/2020 [...] immunoglobulins. Assessment & Plan (04/23/2019 1:46 PM IT NETWORK ENGINEER): Check serum immunoglobulins. Osteoporosis without current pathological fractu re 09/18/2018 Assessment & Plan (08/10/2021 8:09 AM CDT): bds checked by pcp in past, is taking ca and vit d and pcp checked vit D and PTH per pt was wnl. Her pcp started her on alendronate 70mg po qweek. Taking ca + vit d 1200mg qd. Assessment & Plan (06/15/2021 10:46 AM IT NETWORK ENGINEER): bds checked by pcp in past, is taking ca and vit d and pcp checked vit D and PTH per pt was wnl. Her pcp started her on alendronate 70mg po qweek. Taking ca + vit d 1200mg qd. Assessment & Plan (06/09/2021 8:30 AM IT NETWORK ENGINEER): bds checked by pcp in past, is taking ca and vit d and pcp checked vit D and PTH per pt was wnl. Her pcp started her on alendronate 70mg po qweek. Taking ca + vit d 1200mg qd. Assessment & Plan (05/04/2021 8:19 AM IT NETWORK ENGINEER): bds checked by pcp in past, is [...] qd. Assessment & Plan (06/03/2020 7:38 AM IT NETWORK ENGINEER): bds checked by pcp in past, is taking ca and vit d and pcp checked vit D and PTH per pt was wnl. Her pcp started her on alendronate 70mg po qweek. Taking ca + vit d 1200mg qd. Assessment & Plan (03/25/2020 8:34 AM IT NETWORK ENGINEER): bds checked by pcp in past, is taking ca and vit d and pcp checked vit D and PTH per pt was wnl. Her pcp started her on alendronate 70mg po qweek. Taking ca + vit d 1200mg qd. Assessment & Plan (03/24/2020 7:29 AM IT NETWORK ENGINEER): bds checked by pcp in past, is [...] qd. Assessment & Plan (04/20/2019 4:56 PM IT NETWORK ENGINEER): bds checked by pcp in past, is [...] pcp. Assessment & Plan (06/03/2020 7:37 AM IT NETWORK ENGINEER): Was advised in past to get chest CT to r/o aortic aneurysm, to discuss with pcp. Assessment & Plan (03/25/2020 8:33 AM IT NETWORK ENGINEER): Was advised in past to get chest CT to r/o aortic aneurysm, to discuss with pcp. Assessment & Plan (03/24/2020 7:29 AM IT NETWORK ENGINEER): Was advised in past to get chest [...] pcp. Assessment & Plan (04/20/2019 4:57 PM IT NETWORK ENGINEER): Advised to get chest CT to r/o aortic aneurysm, to discuss with pcp. Assessment & Plan (10/31/2018 7:38 AM CDT): Advised to get chest CT to r/o aortic aneurysm, to discuss with pcp. Encounter for long-term (current) use of medicat ions 01/31/2017 Assessment & Plan (05/28/2022 8:07 AM IT NETWORK ENGINEER): Quant gold neg 12/2019 Hep B and [...] showed osteoporosis [facility] 08/2019---[facility] labs reveal positive anti-[employer] antibody which is likely a false positive due to negative ASHLEY. Her father had psoriasis, pt changed from ra to PsA on 03/25/2020. Assessment & Plan (02/26/2022 8:16 AM IT NETWORK ENGINEER): Quant gold neg 12/2019 Hep B and [...] showed osteoporosis [facility] 08/2019---[facility] labs reveal positive anti-[employer] antibody which is likely a false positive [...] showed osteoporosis [facility] 08/2019---[facility] labs reveal positive anti-[employer] antibody which is likely a false positive [...] showed osteoporosis [facility] 08/2019---[facility] labs reveal positive anti-[employer] antibody which is likely a false positive [...] showed osteoporosis [facility] 08/2019---[facility] labs reveal positive anti-[employer] antibody which is likely a false positive [...] showed osteoporosis [facility] 08/2019---[facility] labs reveal positive anti-[employer] antibody which is likely a false positive due to negative ASHLEY. Her father had psoriasis, pt changed from ra to PsA on 03/25/2020. Assessment & Plan (06/28/2021 8:44 AM IT NETWORK ENGINEER): Quant gold neg 12/2019 Hep B and [...] showed osteoporosis [facility] 08/2019---[facility] labs reveal positive anti-[employer] antibody which is likely a false positive due to negative ASHLEY. Her father had psoriasis, pt changed from ra to PsA on 03/25/2020. Assessment & Plan (06/15/2021 10:44 AM IT NETWORK ENGINEER): Quant gold neg 12/2019 Hep B and [...] showed osteoporosis [facility] 08/2019---[facility] labs reveal positive anti-[employer] antibody which is likely a false positive due to negative ASHLEY. Her father had psoriasis, pt changed from ra to PsA on 03/25/2020. Assessment & Plan (06/09/2021 10:15 AM IT NETWORK ENGINEER): Quant gold neg 12/2019 Hep B and [...] showed osteoporosis [facility] 08/2019---[facility] labs reveal positive anti-[employer] antibody which is likely a false positive due to negative ASHLEY. Her father had psoriasis, pt changed from ra to PsA on 03/25/2020. Assessment & Plan (06/09/2021 8:29 AM IT NETWORK ENGINEER): Quant gold neg 12/2019 Hep B and [...] showed osteoporosis [facility] 08/2019---[facility] labs reveal positive anti-[employer] antibody which is likely a false positive due to negative ASHLEY. Her father had psoriasis, pt changed from ra to PsA on 03/25/2020. Assessment & Plan (05/04/2021 8:19 AM IT NETWORK ENGINEER): Quant gold neg 12/2019 Hep B and [...] showed osteoporosis [facility] 08/2019---[facility] labs reveal positive anti-[employer] antibody which is likely a false positive due to negative ASHLEY. Her father had psoriasis, pt changed from ra to PsA on 03/25/2020. Assessment & Plan (03/31/2021 9:20 AM IT NETWORK ENGINEER): Quant gold neg 12/2019 Hep B and [...] showed osteoporosis [facility] 08/2019---[facility] labs reveal positive anti-[employer] antibody which is likely a false positive [...] showed osteoporosis [facility] 08/2019---[facility] labs reveal positive anti-[employer] antibody which is likely a false positive [...] showed osteoporosis [facility] 08/2019---[facility] labs reveal positive anti-[employer] antibody which is likely a false positive [...] showed osteoporosis [facility] 08/2019---[facility] labs reveal positive anti-[employer] antibody which is likely a false positive [...] showed osteoporosis [facility] 08/2019---[facility] labs reveal positive anti-[employer] antibody which is likely a false positive due to negative ASHLEY. Her father had psoriasis, pt changed from ra to PsA on 03/25/2020. Assessment & Plan (06/03/2020 2:56 PM IT NETWORK ENGINEER): Quant gold neg 12/2019 Hep B and [...] showed osteoporosis [facility] 08/2019---[facility] labs reveal positive anti-[employer] antibody which is likely a false positive due to negative ASHLEY. Her father had psoriasis, pt changed from ra to PsA on 03/25/2020. Assessment & Plan (03/25/2020 3:03 PM IT NETWORK ENGINEER): Quant gold neg 12/2019 HLA B27 negative [...] showed osteoporosis [facility] 08/2019---[facility] labs reveal positive anti-[employer] antibody which is likely a false positive due to negative ASHLEY. Her father had psoriasis, pt changed from ra to PsA on 03/25/2020. Assessment & Plan (03/24/2020 7:28 AM IT NETWORK ENGINEER): Quant gold neg 12/2019 HLA B27 negative [...] showed osteoporosis [facility] 08/2019---[facility] labs reveal positive anti-[employer] antibody which is likely a false positive [...] showed osteoporosis [facility] 08/2019---[facility] labs reveal positive anti-[employer] antibody which is likely a false positive [...] showed osteoporosis [facility] 08/2019---[facility] labs reveal positive anti-[employer] antibody which is likely a false positive [...] showed osteoporosis [facility] 08/2019---[facility] labs reveal positive anti-[employer] antibody which is likely a false positive [...] showed osteoporosis [facility] 08/2019---[facility] labs reveal positive anti-[employer] antibody which is likely a false positive [...] showed osteoporosis [facility] 08/2019---[facility] labs reveal positive anti-[employer] antibody which is likely a false positive [...] osteoporosis Assessment & Plan (04/20/2019 4:59 PM IT NETWORK ENGINEER): Quant gold neg 10/2018. TPMT nl 17 [...] 01/31/2017 Assessment & Plan (05/28/2022 8:05 AM IT NETWORK ENGINEER): Images from the original note were not included. Had orencia infusion 05/02/2022. Continue orencia monotherapy. Off arava due to lipase elevation. Seeing gi at [facility] now. [place] and egd utd and nl in past year per pt. Had a nl pancreatic US recently with gi. Past serologies: [facility] panel 08/2019---labs reveal positive anti-[employer] antibody which is likely a false positive due to negative ASHLEY. RF neg but has a possible family hx of psoriatic arthritis (father) so if she develops psoriasis diagnosis will change to psoriatic arthritis. Rt hand US 09/2019 showed: F/u 1 month. Assessment & Plan (02/26/2022 12:12 PM IT NETWORK ENGINEER): Images from the original note were not included. High cdai. Her orencia is scheduled tomorrow. Continue orencia monotherapy. Off arava due to lipase elevation. Seeing gi at [facility] now. [place] and egd utd and nl in past year per pt. Had a nl pancreatic US recently with gi. She could be flaring up since her orencia is due tomorrow, overall she still feels that it is helping her joints. Past serologies: [facility] panel 08/2019---labs reveal positive anti-PH[employer] antibody which is likely a false positive [...] no complications or infections. Seeing gi at [facility] now for her elevated lipase. [place] and egd utd and nl in past year per pt. If labs stable will restart low dose arava 10mg po every day. To stay off orencia until recovered from rt knee surgery. Past serologies: [facility] panel 08/2019---labs reveal positive anti-[employer] antibody which is likely a false positive [...] orencia is scheduled tomorrow. Seeing gi at [facility] now. [place] and egd utd and nl in past year per pt. Due to burden of dz will give her a short course of oral prednisone. Discussed risks and se of systemic steroids. Past serologies: [facility] panel 08/2019---labs reveal positive anti-[employer] antibody which is likely a false positive [...] orencia is scheduled tomorrow. Seeing gi at [facility] now. [place] and egd utd and nl in past year per pt. Due to burden of dz will give her a short course of oral prednisone. Discussed risks and se of systemic steroids. Past serologies: [facility] panel 08/2019---labs reveal positive anti-[employer] antibody which is likely a false positive [...] gi dr arias for her pancreatitis . [place] and egd utd and nl in past year per pt. Seen with dr woodruff today. Past serologies: [facility] panel 08/2019---labs reveal positive anti-[employer] antibody which is likely a false positive due to negative ASHLEY. RF neg but has a possible family hx of psoriatic arthritis (father) so if she develops psoriasis diagnosis will change to psoriatic arthritis. Rt hand US 09/2019 showed: F/u 1 month. Assessment & Plan (06/28/2021 10:22 AM IT NETWORK ENGINEER): Images from the original note were not [...] Past serologies: [facility] panel 08/2019---labs reveal positive anti-[employer] antibody which is likely a false positive due to negative ASHLEY. RF neg but has a possible family hx of psoriatic arthritis (father) so if she develops psoriasis diagnosis will change to psoriatic arthritis. Rt hand US 09/2019 showed: F/u 1 month. Assessment & Plan (06/15/2021 10:46 AM IT NETWORK ENGINEER): Images from the original note were not [...] Past serologies: [facility] panel 08/2019---labs reveal positive anti-[employer] antibody which is likely a false positive due to negative ASHLEY. RF neg but has a possible family hx of psoriatic arthritis (father) so if she develops psoriasis diagnosis will change to psoriatic arthritis. Rt hand US 09/2019 showed: F/u 1 month. Assessment & Plan (06/09/2021 10:16 AM IT NETWORK ENGINEER): Images from the original note were not [...] Past serologies: [facility] panel 08/2019---labs reveal positive anti-[employer] antibody which is likely a false positive due to negative ASHLEY. RF neg but has a possible family hx of psoriatic arthritis (father) so if she develops psoriasis diagnosis will change to psoriatic arthritis. Rt hand US 09/2019 showed: F/u 1 month. Assessment & Plan (06/09/2021 8:29 AM IT NETWORK ENGINEER): Images from the original note were not [...] Past serologies: [facility] panel 08/2019---labs reveal positive anti-[employer] antibody which is likely a false positive due to negative ASHLEY. RF neg but has a possible family hx of psoriatic arthritis (father) so if she develops psoriasis diagnosis will change to psoriatic arthritis. Rt hand US 09/2019 showed: F/u 1 month. Assessment & Plan (05/05/2021 10:11 PM IT NETWORK ENGINEER): Images from the original note were not [...] Past serologies: [facility] panel 08/2019---labs reveal positive anti-[employer]IAN antibody which is likely a false positive due to negative ASHLEY. RF neg but has a possible family hx of psoriatic arthritis (father) so if she develops psoriasis diagnosis will change to psoriatic arthritis. Rt hand US 09/2019 showed: F/u 1 month. Assessment & Plan (03/31/2021 9:24 AM IT NETWORK ENGINEER): Images from the original note were not [...] Past serologies: [facility] panel 08/2019---labs reveal positive anti-PH[employer] antibody which is likely a false positive [...] Past serologies: [facility] panel 08/2019---labs reveal positive anti-PH[employer]IAN antibody which is likely a false positive [...] Past serologies: [facility] panel 08/2019---labs reveal positive anti-PH[employer]IAN antibody which is likely a false positive [...] Past serologies: [facility] panel 08/2019---labs reveal positive anti-[employer]IAN antibody which is likely a false positive due to negative ASHLEY. RF neg but has a possible family hx of psoriatic arthritis (father) so if she develops psoriasis diagnosis will change to psoriatic arthritis. Rt [facility] 09/2019 showed: Assessment & Plan (07/18/2020 8:24 AM CDT): Images from the original note were not included. High cdai. On imuran to 100mg bid and Stelara. Discussed potential se and risks of stelara tx. To see her gi for her diarrhea, she is due for colonoscopy. Continue imuran. To get covid 19 vaccine when available. Past serologies: [facility] panel 08/2019---labs reveal positive anti-[employer] antibody which is likely a false positive due to negative ASHLEY. RF neg but has a possible family hx of psoriatic arthritis (father) so if she develops psoriasis diagnosis will change to psoriatic arthritis. Rt [facility] 09/2019 showed: Assessment & Plan (06/03/2020 5:27 PM IT NETWORK ENGINEER): Images from the original note were not [...] Past serologies: [facility] panel 08/2019---labs reveal positive anti-PH[employer]IAN antibody which is likely a false positive due to negative ASHLEY. RF neg but has a possible family hx of psoriatic arthritis (father) so if she develops psoriasis diagnosis will change to psoriatic arthritis. Rt [facility] 09/2019 showed: Assessment & Plan (03/25/2020 3:01 PM IT NETWORK ENGINEER): Images from the original note were not [...] Past serologies: [facility] panel 08/2019---labs reveal positive anti-PH[employer]IAN antibody which is likely a false positive due to negative ASHLEY. RF neg but has a possible family hx of psoriatic arthritis (father) so if she develops psoriasis diagnosis will change to psoriatic arthritis. Rt [facility] [place] 09/2019 showed: Assessment & Plan (03/24/2020 7:29 AM IT NETWORK ENGINEER): Images from the original note were not included. Bernardino zapien Wants to go back to sq orencia, gave pt 1 mo of samples and will start approval. Can't come in for iv orencia, her dad is on hospice. Increase imuran to 100mg bid, check cbc/cmp in 2 weeks and f/u in 1month. Past serologies: [facility] panel 08/2019---labs reveal positive anti-PH[employer]IAN antibody which is likely a false positive due to negative ASHLEY. RF neg but has a possible family hx of psoriatic arthritis (father) so if she develops psoriasis diagnosis will change to psoriatic arthritis. Rt [facility] 09/2019 showed: Assessment & Plan (02/19/2020 11:34 AM CDT): Bernardino zapien Wants to go back to sq orencia, gave pt 1 mo of samples and will start approval. Can't come in for iv orencia, her dad is on hospice. Increase imuran to 100mg bid, check cbc/cmp in 2 weeks and f/u in 1month. Past serologies: [facility] panel 08/2019---labs reveal positive anti-PH[employer]IAN antibody which is likely a false positive due to negative ASHLEY. RF neg but has a possible family hx of psoriatic arthritis (father) so if she develops psoriasis diagnosis will change to psoriatic arthritis. Rt [facility] 09/2019 showed: Assessment & Plan (01/22/2020 12:51 [...] Past serologies: [facility] panel 08/2019---labs reveal positive anti-PH[employer]IAN antibody which is likely a false positive [...] every day. [facility] panel 08/2019---labs reveal positive anti-PH[employer]IAN antibody which is likely a false positive due to negative ASHLEY. Otherwise labs look good. No evidence of a new autoimmune connective tissue disease. Cont orencia sq and imuran 100mg po qhs. [place] better on iv orencia, will change from [...] since resolved. [facility] panel 08/2019---labs reveal positive anti-PH[employer] antibody which is likely a false positive [...] of orencia. [facility] panel 08/2019---labs reveal positive anti-PH[employer]IAN antibody which is likely a false positive [...] of orencia. [facility] panel 08/2019---labs reveal positive anti-PH[employer]IAN antibody which is likely a false positive [...] wnl. Assessment & Plan (04/23/2019 1:46 PM IT NETWORK ENGINEER): High cdai. On orencia IV but has [...] citrate. Assessment & Plan (06/03/2020 2:56 PM IT NETWORK ENGINEER): Multiple kidney stones for over 10 yrs, [...] file Legal Sex Female 9:24 PM IT NETWORK ENGINEER Gender Identity Female 08/14/2022 11:32 AM [...] HEPATITIS C AB Routine 06/29/2015 2:43 PM IT NETWORK ENGINEER from Last 3 Months or Most Recently Relevant to Health Maintenance Results * ThinPrep Pap with HPV (12/24/2018 3:41 PM CDT) 12/24/2018 3:41 PM CDT 12/25/2018 8:54 AM CDT Narrative [facility] - 12/26/2018 2:53 PM CDT [facility] Department of Pathology [address] [place] [id number] Final Report with Addendum Patient Name: JULIAN SAUER Address: [address] [place] [address] Gender: F : 1975 (Age: 43) Service: Laboratory Location: Lab [facility] #: [id number] Patient Type: Ref Lab Taken: 12/24/2018 Received: 12/25/2018 Accessioned:: 12/26/2018 Reported: 12/26/2018 Physician(s): Curtis Oseguera M.D. [facility] Diagnosis: Source of Specimen: SCREENING IMAGED [...] determined by the Surgical Pathology Department at [facility] as part of an ongoing quality control [...] characteristics determined by the Surgical Pathology Department [facility]. It has not been cleared or approved by the U. S. Food and Drug Administration. Curtis Oseguera MD LAB CYTOLOGY ORDERABLES Final Result Performing Organization Address [facility] Co de Phone Number [address] [phone] * Serum Hepatitis C ab (06/29/2015 2:43 PM IT NETWORK ENGINEER) HCV ab Non-Reacti ve Non-Reacti ve HISTORICAL RESULTS Serum 06/29/2015 2:43 PM IT NETWORK ENGINEER Miriam VALLE LAB BLOOD ORDERAB LES Final Result Performing Organization Address [facility] Co de Phone Number HISTORICAL RESULTS from Last 3 Months or Most Recently Relevant to Health Maintenance Insurance [employer] [place] [employer] [place] [employer] [place] Care Teams Facility Coordinator Relationship Specialty Start Date End Date Bhupinder Tobias MD [address] [place] [address] PCP - General Internal Medicine 06/03/20 Cash Woodruff III, MD [address] [place] [address] Rheumatology 04/12/17 Jorge Aguiar MD [address] [facility] [address] [place] [address] Consulting Physician Urology 11/10/20 Khoa Arias MD [address] [place] [address] Referring Physician Gastroenterology 03/20/21
--- OUTSIDE RECORDS SUMMARY | 2024-10-30 19:29 | XMS_ITS | Clinical Summary ---
Author Organization [facility] Address [address], [address] [address] Phone Care Team Providers Care Patient Care Associate Name Role Phone Marbin Fair DO Unavailable [phone] Amadeo Hernandez MD Unavailable Isaiah Quiros MD Primary Care Provider [phone] Medications cholestyramine (QUESTRAN) 4 GM Pack Take 1 Packet by mouth 2 times daily (with meals). 180 Packet 3 03/09/2019 Active Social History Tobacco Use Types Packs/Day Years Used Date Smoking Tobacco: Never Assessed Comments Unknown Sex and Gender Information Value Date Recorded Sex Assigned at Not on file Legal Sex Female 3:35 PM ANIMAL SCIENTIST Gender Identity Not on file Sexual Orientation [...] Most Recently Relevant to Health Maintenance Insurance [facility] Care Teams Patient Care Associate Relationship Specialty Start Date End Date Isaiah Quiros MD [address], [address] [place] [address] PCP - General Internal Medicine 05/08/18 Marbin Fair DO Gastroenterology 12/03/16 Amadeo Hernandez MD [address] [place] [address] 12/03/16
--- OUTSIDE RECORDS SUMMARY | 2024-10-30 19:29 | XMS_ITS | Clinical Summary ---
Author Organization [facility] Address [address] [place] [address] Phone Care Team Providers Care Highway Engineer Name Role Phone Isaiah Quiros MD Primary Care Provider [phone] Allergies No known active allergies Medications topiramate [...] tablet Take 300 mg by mouth daily benzol operator. Active pregabalin (LYRICA) 100 mg Capsule [...] Comments Blood Pressure 131/87 04/01/2019 10:31 AM NO BAKE MOLDER Pulse 101 04/01/2019 10:31 AM NO BAKE MOLDER Temperature 36.4 C (97.6 F) 12/29/2018 12:00 PM CDT Respiratory Rate 18 12/29/2018 12:00 PM CDT Oxygen Saturation 99% 12/29/2018 12:00 PM CDT Inhaled Oxygen Concentration - - Weight 90.5 kg (199 lb 9.6 oz) 04/01/2019 10:31 AM NO BAKE MOLDER Height 170.7 cm (5' 7.2) 04/01/2019 10:31 AM CS T Body Mass Index 31.08 04/01/2019 10:31 AM NO BAKE MOLDER Plan of Treatment Health Maintenance Due [...] Tdap) 05/10/2027 Insurance [employer] Commercial [employer] BLUE ACCESS/TRUE BLUE PPO BS BLUE ACCESS/TRUE BLUE PPO Advance Directives For more information, please contact: [phone] * Full Code (Latest Code Status on File) Date Activated Date Inactivated Comments 12/27/2018 10:12 AM 12/29/2018 7:[address] Engineer Relationship Specialty Start Date End Date Isaiah Quiros MD [address] [place] [address] PCP - General Internal Medicine 04/16/18
--- OUTSIDE RECORDS SUMMARY | 2024-10-30 19:29 | XMS_ITS | Clinical Summary ---
Author Organization [facility] [employer] Address [address] [place] [address] Care Team Providers Care Senior Site Manager Name Role Phone Jonathan Hartman RN Unavailable [phone] Feliciano Dash MD Primary Care Provider Source Comments [facility],non-owned Affiliates and Associated Physician Practices is amultiple site organization consisting of ambulatory clinics and hospital sitesin [place], [place] and [place]. This disclosure is being madepursuant to the Care Everywhere program and may not contain all information available regarding this patient. Last updated 18.[facility] Allergies Active Allergy Reactions Criticality [...] transdermal route every 24 hours. Obtains from [facility] in [place]. 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 Obtains from [facility] in [place]. 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 All rights reserved. The codes documented in this report are preliminary and upon book illustrator review may be revised to meet current compliance requirements. Armando Corona, 12/15/2015 12:47:51 PM This report has been signed electronically. Number of Addenda: 0 Note Initiated On: 12/15/2015 12:23 PM [facility] 12/15/2015 12:2 3 PM CDT Narrative Transcriptions Armando Corona MD - 12/15/2015 12:53 PM CDT Neg colon s/p random bx us Armando Corona MD GI PROCEDURE ORDERABLES Edited R esult - Final [facility] * (ABNORMAL) LIPID PROFILE [...] LAB - CHEMISTRY ORDERABLES Fi nal Result [facility] [address] [place] [address] from Last 3 Months or Most Recently Relevant to Health Maintenance Insurance [facility] SELF PAY NO INSURANCE Member Subscriber Plan / Payer (Ef fective for All Dates) Name:Julian Sauer Member ID:Not on file Relation to Subscriber:Not on file Name:JULIAN SAUER Subscriber ID:Not on file (Home) Address: [address] [place] [address] Payer ID:Not on file Group ID:Not on file Type:Self Pay Address: [place], [place] [facility] SELF PAY NO INSURANCE Member Subscriber Plan / Payer (Ef fective for All Dates) Name:Julian Sauer Member ID:Not on file Relation to Subscriber:Not on file Name:JULIAN SAUER Subscriber ID:Not on file Address: [address] [place] [address] Payer ID:Not on file Group ID:Not on file Type:Self Pay Address: [place], [place] [facility] SELF PAY NO INSURANCE Member Subscriber Plan / Payer (Ef fective for All Dates) Name:Julian Sauer Member ID:Not on file Relation to Subscriber:Not on file Name:JULIAN SAUER Subscriber ID:Not on file Address: [address] [place] [address] Payer ID:Not on file Group ID:Not on file Type:Self Pay Address: [place], [place] Advance Directives * Full Code (Latest Code Status on File) Date Activated Date Inactivated Comments 01/29/2017 7:53 PM 02/02/2017 1:02 PM * Full Code Date Activated Date Inactivated Comments 08/02/2015 1:57 AM 08/05/2015 3:00 PM * Full Code Date Activated Date Inactivated Comments 07/13/2015 10:36 PM 07/16/2015 3:55 PM Care Teams Senior Site Manager Relationship Specialty Start Date End Date Feliciano Dash MD [address] [facility] [address] [place] [address] PCP - General 07/14/21 Jonathan Hartman RN Compensation Administrator 07/14/15
--- OUTSIDE RECORDS SUMMARY | 2024-10-30 19:29 | XMS_ITS | Clinical Summary ---
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 Gender Identity Not on file Sexual Orientation Not on file Last Filed Vital Signs Vital Sign Reading Time Taken Comments Blood Pressure 108/79 03/01/2021 3:00 PM BOIL OFF WORKER Pulse 79 03/01/2021 3:00 PM BOIL OFF WORKER Temperature 36.2 C (97.2 F) 03/01/2021 12:34 PM BOIL OFF WORKER Respiratory Rate 16 03/01/2021 3:00 PM BOIL OFF WORKER Oxygen Saturation 98% 03/01/2021 3:00 PM BOIL OFF WORKER Inhaled Oxygen Concentration - - Weight 86.1 kg (189 lb 13.1 oz) 021 12:34 PM BOIL OFF WORKER Height 167.6 cm (5' 6) 03/01/2021 12:3 4 PM BOIL OFF WORKER Body Mass Index 30.64 03/01/2021 12:34 PM BOIL OFF WORKER Plan of Treatment Health Maintenance Due Date [...] [facility] Care Teams Steam Fitter Supervisor Relationship Specialty Start Date End Date Bhupinder Tobias MD [address] [place] [address] [address] PCP - General INTERNAL MEDICINE 03/01/21
--- OUTSIDE RECORDS SUMMARY | 2024-10-30 19:29 | XMS_ITS | Continuity of Care Document ---
Author Organization [facility] Address [address] [place] [address] Phone Care Team Providers Care Area Plant Manager Name Role Phone Amadeo Arias MD Unavailable [...] Copied on Encounter OFFICE/OUTPAT IENT VISIT EST [facility], [address] [address], [place], [address], tel:[phone] [facility] [place] Patellofemoral instability, rightOther specified sprain of right wrist, initial encounter 0 [address]s. [address], [place], [place], [id number] . tel: [phone] [facility], [address], [place], [address], [place] tel:[phone] [facility] Acute bilateral low back pain without sciaticaLeft hip painArthralgia of right hipPatellofemo ral instability, leftPatellofem oral instability, right 6 Hugo Childs. [address], [place], [place], [id number] . tel: [phone] OFFICE CONSULTATION [facility], [address], [place], [address], tel:[phone] [facility] [place] Patellofemoral instability, rightPatellofe moral instability, leftArthralgia of right hipLeft hip painAcute bilateral low back pain without sciatica 201 [address]s. [address], [place], [place], [id number] . tel: [phone] Referring Provider: Michelle De La Torre[address], [place], [address] . tel:[phone] Family History Family Member Type Diagnosis Age At Onset Sister Problem (finding) Alive and well Payers Payer name Insurance type Covered republican ID Authoriza tion(s) [facility] Choice/Choice Plus [id number] Social History Type Description Quantity Date Captured [...]
--- OUTSIDE RECORDS SUMMARY | 2024-10-30 19:29 | XMS_ITS | Referral Summary ---
Author Organization [id number] Address [address] [place] [address] Phone Care Team Providers Care Pv Design Engineer Name Role Phone Kumar CARRILLO MD, John J. Unavailable [phone] Bhupinder Tobias MD Primary Care Provider [phone] Jorge Aguiar MD Unavailable [phone] Khoa Arias MD Unavailable [phone] Allergies No known active allergies Medications [...] (08/30/2021): Added automatically from request for surgery [id number] Abdominal pain 03/31/2021 Assessment & Plan (06/28/2021 10:08 AM COMMUNITY HEALTH REPRESENTATIVE): Recently dx with mild pancreatitis. Needs lipase/amylase rechecked. Still has some upper abd pain. Advised pt to f/u with GI also. Assessment & Plan (06/19/2021 8:52 AM COMMUNITY HEALTH REPRESENTATIVE): Had abd pain early this month, check amyl/lip and ua. Pain has resolved. Assessment & Plan (05/05/2021 10:13 PM COMMUNITY HEALTH REPRESENTATIVE): Having abd pain, bloating, constipation. On meds for IBS and also using suppositories to have BM. Incidental findings of mesenteric fat stranding (adenitis or panniculitis) on abd CT. Awaiting further eval by Dr. Arias. Assessment & Plan (03/31/2021 8:44 AM COMMUNITY HEALTH REPRESENTATIVE): Elevated lipase. Imuran stopped. Pt advised [...] 04/23/2019 Assessment & Plan (03/24/2020 7:29 AM COMMUNITY HEALTH REPRESENTATIVE): Normal serum immunoglobulins. Assessment & Plan [...] immunoglobulins. Assessment & Plan (04/23/2019 1:46 PM COMMUNITY HEALTH REPRESENTATIVE): Check serum immunoglobulins. Osteoporosis without current pathological fractu re 09/18/2018 Assessment & Plan (08/10/2021 8:09 AM CDT): bds checked by pcp in past, is taking ca and vit d and pcp checked vit D and PTH per pt was wnl. Her pcp started her on alendronate 70mg po qweek. Taking ca + vit d 1200mg qd. Assessment & Plan (06/15/2021 10:46 AM COMMUNITY HEALTH REPRESENTATIVE): bds checked by pcp in past, is taking ca and vit d and pcp checked vit D and PTH per pt was wnl. Her pcp started her on alendronate 70mg po qweek. Taking ca + vit d 1200mg qd. Assessment & Plan (06/09/2021 8:30 AM COMMUNITY HEALTH REPRESENTATIVE): bds checked by pcp in past, is taking ca and vit d and pcp checked vit D and PTH per pt was wnl. Her pcp started her on alendronate 70mg po qweek. Taking ca + vit d 1200mg qd. Assessment & Plan (05/04/2021 8:19 AM COMMUNITY HEALTH REPRESENTATIVE): bds checked by pcp in past, [...] qd. Assessment & Plan (06/03/2020 7:38 AM COMMUNITY HEALTH REPRESENTATIVE): bds checked by pcp in past, is taking ca and vit d and pcp checked vit D and PTH per pt was wnl. Her pcp started her on alendronate 70mg po qweek. Taking ca + vit d 1200mg qd. Assessment & Plan (03/25/2020 8:34 AM COMMUNITY HEALTH REPRESENTATIVE): bds checked by pcp in past, is taking ca and vit d and pcp checked vit D and PTH per pt was wnl. Her pcp started her on alendronate 70mg po qweek. Taking ca + vit d 1200mg qd. Assessment & Plan (03/24/2020 7:29 AM COMMUNITY HEALTH REPRESENTATIVE): bds checked by pcp in past, [...] qd. Assessment & Plan (04/20/2019 4:56 PM COMMUNITY HEALTH REPRESENTATIVE): bds checked by pcp in past, [...] pcp. Assessment & Plan (06/03/2020 7:37 AM COMMUNITY HEALTH REPRESENTATIVE): Was advised in past to get chest CT to r/o aortic aneurysm, to discuss with pcp. Assessment & Plan (03/25/2020 8:33 AM COMMUNITY HEALTH REPRESENTATIVE): Was advised in past to get chest CT to r/o aortic aneurysm, to discuss with pcp. Assessment & Plan (03/24/2020 7:29 AM COMMUNITY HEALTH REPRESENTATIVE): Was advised in past to get [...] pcp. Assessment & Plan (04/20/2019 4:57 PM COMMUNITY HEALTH REPRESENTATIVE): Advised to get chest CT to r/o aortic aneurysm, to discuss with pcp. Assessment & Plan (10/31/2018 7:38 AM CDT): Advised to get chest CT to r/o aortic aneurysm, to discuss with pcp. Encounter for long-term (current) use of medicat ions 01/31/2017 Assessment & Plan (05/28/2022 8:07 AM COMMUNITY HEALTH REPRESENTATIVE): Quant gold neg 12/2019 Hep B [...] showed osteoporosis [facility] 08/2019---[facility] labs reveal positive anti-WASHING MACHINE REPAIRER antibody which is likely a false positive due to negative ASHLEY. Her father had psoriasis, pt changed from ra to PsA on 03/25/2020. Assessment & Plan (02/26/2022 8:16 AM COMMUNITY HEALTH REPRESENTATIVE): Quant gold neg 12/2019 Hep B [...] showed osteoporosis [facility] 08/2019---[facility] labs reveal positive anti-WASHING MACHINE REPAIRER antibody which is likely a false positive [...] showed osteoporosis [facility] 08/2019---[facility] labs reveal positive anti-WASHING MACHINE REPAIRER antibody which is likely a false positive [...] showed osteoporosis [facility] 08/2019---[facility] labs reveal positive anti-WASHING MACHINE REPAIRER antibody which is likely a false positive [...] showed osteoporosis [facility] 08/2019---[facility] reveal positive anti-WASHING MACHINE REPAIRER antibody which is likely a false positive [...] showed osteoporosis [facility] 08/2019---[facility] labs reveal positive anti-WASHING MACHINE REPAIRER antibody which is likely a false positive due to negative ASHLEY. Her father had psoriasis, pt changed from ra to PsA on 03/25/2020. Assessment & Plan (06/28/2021 8:44 AM COMMUNITY HEALTH REPRESENTATIVE): Quant gold neg 12/2019 Hep B [...] showed osteoporosis [facility] 08/2019---[facility] labs reveal positive anti-WASHING MACHINE REPAIRER antibody which is likely a false positive due to negative ASHLEY. Her father had psoriasis, pt changed from ra to PsA on 03/25/2020. Assessment & Plan (06/15/2021 10:44 AM COMMUNITY HEALTH REPRESENTATIVE): Quant gold neg 12/2019 Hep B [...] showed osteoporosis [facility] 08/2019---[facility] labs reveal positive anti-WASHING MACHINE REPAIRER antibody which is likely a false positive due to negative ASHLEY. Her father had psoriasis, pt changed from ra to PsA on 03/25/2020. Assessment & Plan (06/09/2021 10:15 AM COMMUNITY HEALTH REPRESENTATIVE): Quant gold neg 12/2019 Hep B [...] showed osteoporosis [facility] 08/2019---[facility] labs reveal positive anti-WASHING MACHINE REPAIRER antibody which is likely a false positive due to negative ASHLEY. Her father had psoriasis, pt changed from ra to PsA on 03/25/2020. Assessment & Plan (06/09/2021 8:29 AM COMMUNITY HEALTH REPRESENTATIVE): Quant gold neg 12/2019 Hep B [...] showed osteoporosis [facility] 08/2019---[facility] labs reveal positive anti-WASHING MACHINE REPAIRER antibody which is likely a false positive due to negative ASHLEY. Her father had psoriasis, pt changed from ra to PsA on 03/25/2020. Assessment & Plan (05/04/2021 8:19 AM COMMUNITY HEALTH REPRESENTATIVE): Quant gold neg 12/2019 Hep B [...] showed osteoporosis [facility] 08/2019---[facility] labs reveal positive anti-WASHING MACHINE REPAIRER antibody which is likely a false positive due to negative ASHLEY. Her father had psoriasis, pt changed from ra to PsA on 03/25/2020. Assessment & Plan (03/31/2021 9:20 AM COMMUNITY HEALTH REPRESENTATIVE): Quant gold neg 12/2019 Hep B [...] showed osteoporosis [facility] 08/2019---[facility] labs reveal positive anti-WASHING MACHINE REPAIRER antibody which is likely a false positive [...] showed osteoporosis [facility] 08/2019---[facility] labs reveal positive anti-WASHING MACHINE REPAIRER antibody which is likely a false positive [...] showed osteoporosis [facility] 08/2019---[facility] labs reveal positive anti-WASHING MACHINE REPAIRER antibody which is likely a false positive [...] showed osteoporosis [facility] 08/2019---[facility] labs reveal positive anti-WASHING MACHINE REPAIRER antibody which is likely a false positive [...] showed osteoporosis [facility] 08/2019---[facility] labs reveal positive anti-WASHING MACHINE REPAIRER antibody which is likely a false positive due to negative ASHLEY. Her father had psoriasis, pt changed from ra to PsA on 03/25/2020. Assessment & Plan (06/03/2020 2:56 PM COMMUNITY HEALTH REPRESENTATIVE): Quant gold neg 12/2019 Hep B [...] showed osteoporosis [facility] 08/2019---[facility] labs reveal positive anti-WASHING MACHINE REPAIRER antibody which is likely a false positive due to negative ASHLEY. Her father had psoriasis, pt changed from ra to PsA on 03/25/2020. Assessment & Plan (03/25/2020 3:03 PM COMMUNITY HEALTH REPRESENTATIVE): Quant gold neg 12/2019 HLA B27 [...] showed osteoporosis [facility] 08/2019---[facility] labs reveal positive anti-WASHING MACHINE REPAIRER antibody which is likely a false positive due to negative ASHLEY. Her father had psoriasis, pt changed from ra to PsA on 03/25/2020. Assessment & Plan (03/24/2020 7:28 AM COMMUNITY HEALTH REPRESENTATIVE): Quant gold neg 12/2019 HLA B27 [...] showed osteoporosis [facility] 08/2019---[facility] labs reveal positive anti-WASHING MACHINE REPAIRER antibody which is likely a false positive [...] showed osteoporosis [facility] 08/2019---[facility] labs reveal positive anti-WASHING MACHINE REPAIRER antibody which is likely a false positive [...] showed osteoporosis [facility] 08/2019---[facility] labs reveal positive anti-WASHING MACHINE REPAIRER antibody which is likely a false positive [...] showed osteoporosis [facility] 08/2019---[facility] labs reveal positive anti-WASHING MACHINE REPAIRER antibody which is likely a false positive [...] showed osteoporosis [facility] 08/2019---[facility] labs reveal positive anti-WASHING MACHINE REPAIRER antibody which is likely a false positive [...] showed osteoporosis [facility] 08/2019---[facility] labs reveal positive anti-WASHING MACHINE REPAIRER antibody which is likely a false positive [...] osteoporosis Assessment & Plan (04/20/2019 4:59 PM COMMUNITY HEALTH REPRESENTATIVE): Quant gold neg 10/2018. TPMT nl [...] 01/31/2017 Assessment & Plan (05/28/2022 8:05 AM COMMUNITY HEALTH REPRESENTATIVE): Images from the original note were not included. Had orencia infusion 05/02/2022. Continue orencia monotherapy. Off arava due to lipase elevation. Seeing gi at [facility] now. [place] and egd utd and nl in past year per pt. Had a nl pancreatic US recently with gi. Past serologies: [facility] panel 08/2019---labs reveal positive anti-WASHING MACHINE REPAIRER antibody which is likely a false positive due to negative ASHLEY. RF neg but has a possible family hx of psoriatic arthritis (father) so if she develops psoriasis diagnosis will change to psoriatic arthritis. Rt hand US 09/2019 showed: F/u 1 month. Assessment & Plan (02/26/2022 12:12 PM COMMUNITY HEALTH REPRESENTATIVE): Images from the original note were not included. High cdai. Her orencia is scheduled tomorrow. Continue orencia monotherapy. Off arava due to lipase elevation. Seeing gi at [facility] now. [place] and egd utd and nl in past year per pt. Had a nl pancreatic US recently with gi. She could be flaring up since her orencia is due tomorrow, overall she still feels that it is helping her joints. Past serologies: [facility] panel 08/2019---labs reveal positive anti-WASHING MACHINE REPAIRER antibody which is likely a false positive [...] no complications or infections. Seeing gi at [facility] now for her elevated lipase. [place] and egd utd and nl in past year per pt. If labs stable will restart low dose arava 10mg po every day. To stay off orencia until recovered from rt knee surgery. Past serologies: [facility] panel 08/2019---labs reveal positive anti-WASHING MACHINE REPAIRER antibody which is likely a false positive [...] orencia is scheduled tomorrow. Seeing gi at [facility] now. [place] and egd utd and nl in past year per pt. Due to burden of dz will give her a short course of oral prednisone. Discussed risks and se of systemic steroids. Past serologies: [facility] panel 08/2019---labs reveal positive anti-WASHING MACHINE REPAIRER antibody which is likely a false positive [...] orencia is scheduled tomorrow. Seeing gi at [facility] now. [place] and egd utd and nl in past year per pt. Due to burden of dz will give her a short course of oral prednisone. Discussed risks and se of systemic steroids. Past serologies: [facility] panel 08/2019---labs reveal positive anti-WASHING MACHINE REPAIRER antibody which is likely a false positive [...] gi dr arias for her pancreatitis . [place] and egd utd and nl in past year per pt. Seen with dr woodruff today. Past serologies: [facility] panel 08/2019---labs reveal positive anti-WASHING MACHINE REPAIRER antibody which is likely a false positive due to negative ASHLEY. RF neg but has a possible family hx of psoriatic arthritis (father) so if she develops psoriasis diagnosis will change to psoriatic arthritis. Rt hand US 09/2019 showed: F/u 1 month. Assessment & Plan (06/28/2021 10:22 AM COMMUNITY HEALTH REPRESENTATIVE): Images from the original note were [...] Past serologies: [facility] panel 08/2019---labs reveal positive anti-WASHING MACHINE REPAIRER antibody which is likely a false positive due to negative ASHLEY. RF neg but has a possible family hx of psoriatic arthritis (father) so if she develops psoriasis diagnosis will change to psoriatic arthritis. Rt hand US 09/2019 showed: F/u 1 month. Assessment & Plan (06/15/2021 10:46 AM COMMUNITY HEALTH REPRESENTATIVE): Images from the original note were [...] Past serologies: [facility] panel 08/2019---labs reveal positive anti-WASHING MACHINE REPAIRER antibody which is likely a false positive due to negative ASHLEY. RF neg but has a possible family hx of psoriatic arthritis (father) so if she develops psoriasis diagnosis will change to psoriatic arthritis. Rt hand US 09/2019 showed: F/u 1 month. Assessment & Plan (06/09/2021 10:16 AM COMMUNITY HEALTH REPRESENTATIVE): Images from the original note were [...] Past serologies: [facility] panel 08/2019---labs reveal positive anti-WASHING MACHINE REPAIRER antibody which is likely a false positive due to negative ASHLEY. RF neg but has a possible family hx of psoriatic arthritis (father) so if she develops psoriasis diagnosis will change to psoriatic arthritis. Rt hand US 09/2019 showed: F/u 1 month. Assessment & Plan (06/09/2021 8:29 AM COMMUNITY HEALTH REPRESENTATIVE): Images from the original note were [...] Past serologies: [facility] panel 08/2019---labs reveal positive anti-WASHING MACHINE REPAIRER antibody which is likely a false positive due to negative ASHLEY. RF neg but has a possible family hx of psoriatic arthritis (father) so if she develops psoriasis diagnosis will change to psoriatic arthritis. Rt hand US 09/2019 showed: F/u 1 month. Assessment & Plan (05/05/2021 10:11 PM COMMUNITY HEALTH REPRESENTATIVE): Images from the original note were [...] Past serologies: [facility] panel 08/2019---labs reveal positive anti-WASHING MACHINE REPAIRER antibody which is likely a false positive due to negative ASHLEY. RF neg but has a possible family hx of psoriatic arthritis (father) so if she develops psoriasis diagnosis will change to psoriatic arthritis. Rt hand US 09/2019 showed: F/u 1 month. Assessment & Plan (03/31/2021 9:24 AM COMMUNITY HEALTH REPRESENTATIVE): Images from the original note were [...] Past serologies: [facility] panel 08/2019---labs reveal positive anti-WASHING MACHINE REPAIRER antibody which is likely a false positive [...] Past serologies: [facility] panel 08/2019---labs reveal positive anti-WASHING MACHINE REPAIRER antibody which is likely a false positive [...] Past serologies: [facility] panel 08/2019---labs reveal positive anti-WASHING MACHINE REPAIRER antibody which is likely a false positive [...] Past serologies: [facility] panel 08/2019---labs reveal positive anti-WASHING MACHINE REPAIRER antibody which is likely a false positive due to negative ASHLEY. RF neg but has a possible family hx of psoriatic arthritis (father) so if she develops psoriasis diagnosis will change to psoriatic arthritis. Rt [facility] 09/2019 showed: Assessment & Plan (07/18/2020 8:24 AM CDT): Images from the original note were not included. High cdai. On imuran to 100mg bid and Stelara. Discussed potential se and risks of stelara tx. To see her gi for her diarrhea, she is due for colonoscopy. Continue imuran. To get covid 19 vaccine when available. Past serologies: [facility] panel 08/2019---labs reveal positive anti-WASHING MACHINE REPAIRER antibody which is likely a false positive due to negative ASHLEY. RF neg but has a possible family hx of psoriatic arthritis (father) so if she develops psoriasis diagnosis will change to psoriatic arthritis. Rt [facility] 09/2019 showed: Assessment & Plan (06/03/2020 5:27 PM COMMUNITY HEALTH REPRESENTATIVE): Images from the original note were [...] Past serologies: [facility] panel 08/2019---labs reveal positive anti-WASHING MACHINE REPAIRER antibody which is likely a false positive due to negative ASHLEY. RF neg but has a possible family hx of psoriatic arthritis (father) so if she develops psoriasis diagnosis will change to psoriatic arthritis. Rt [facility] 09/2019 showed: Assessment & Plan (03/25/2020 3:01 PM COMMUNITY HEALTH REPRESENTATIVE): Images from the original note were [...] Past serologies: [facility] panel 08/2019---labs reveal positive anti-WASHING MACHINE REPAIRER antibody which is likely a false positive due to negative ASHLEY. RF neg but has a possible family hx of psoriatic arthritis (father) so if she develops psoriasis diagnosis will change to psoriatic arthritis. Rt [facility] [place] 09/2019 showed: Assessment & Plan (03/24/2020 7:29 AM COMMUNITY HEALTH REPRESENTATIVE): Images from the original note were not included. Bernardino zapien Wants to go back to sq orencia, gave pt 1 mo of samples and will start approval. Can't come in for iv orencia, her dad is on hospice. Increase imuran to 100mg bid, check cbc/cmp in 2 weeks and f/u in 1month. Past serologies: [facility] panel 08/2019---labs reveal positive anti-WASHING MACHINE REPAIRER antibody which is likely a false positive due to negative ASHLEY. RF neg but has a possible family hx of psoriatic arthritis (father) so if she develops psoriasis diagnosis will change to psoriatic arthritis. Rt [facility] 09/2019 showed: Assessment & Plan (02/19/2020 11:34 AM CDT): Bernardino zapien Wants to go back to sq orencia, gave pt 1 mo of samples and will start approval. Can't come in for iv orencia, her dad is on hospice. Increase imuran to 100mg bid, check cbc/cmp in 2 weeks and f/u in 1month. Past serologies: [facility] panel 08/2019---labs reveal positive anti-WASHING MACHINE REPAIRER antibody which is likely a false positive due to negative ASHLEY. RF neg but has a possible family hx of psoriatic arthritis (father) so if she develops psoriasis diagnosis will change to psoriatic arthritis. Rt [facility] 09/2019 showed: Assessment & Plan (01/22/2020 [...] Past serologies: [facility] panel 08/2019---labs reveal positive anti-WASHING MACHINE REPAIRER antibody which is likely a false positive [...] every day. [facility] panel 08/2019---labs reveal positive anti-WASHING MACHINE REPAIRER antibody which is likely a false positive due to negative ASHLEY. Otherwise labs look good. No evidence of a new autoimmune connective tissue disease. Cont orencia sq and imuran 100mg po qhs. Byron better on iv orencia, will change from [...] since resolved. [facility] panel 08/2019---labs reveal positive anti-WASHING MACHINE REPAIRER antibody which is likely a false positive [...] of orencia. [facility] panel 08/2019---labs reveal positive anti-WASHING MACHINE REPAIRER antibody which is likely a false positive [...] of orencia. [facility] panel 08/2019---labs reveal positive anti-WASHING MACHINE REPAIRER antibody which is likely a false positive [...] wnl. Assessment & Plan (04/23/2019 1:46 PM COMMUNITY HEALTH REPRESENTATIVE): High cdai. On orencia IV but [...] citrate. Assessment & Plan (06/03/2020 2:56 PM COMMUNITY HEALTH REPRESENTATIVE): Multiple kidney stones for over 10 [...] on file Legal Sex Female 9:24 PM COMMUNITY HEALTH REPRESENTATIVE Gender Identity Female 08/14/2022 11:32 AM [...] HEPATITIS C AB Routine 06/29/2015 2:43 PM COMMUNITY HEALTH REPRESENTATIVE from Last 3 Months or Most Recently Relevant to Health Maintenance Results * ThinPrep Pap with HPV (12/24/2018 3:41 PM CDT) 12/24/2018 3:41 PM CDT 12/25/2018 8:54 AM CDT [facility] - 12/26/2018 2:53 PM CDT [facility] Department of Pathology [address] [place] [address], [place] [address] Final Report with Addendum Patient Name: JULIAN SAUER Address: [address] [place] [address] Gender: F : 1975 (Age: 43) Service: Laboratory Location: Lab [facility] #: [id number] Patient Type: CH Ref Lab Taken: 12/24/2018 Received: 12/25/2018 Accessioned:: 12/26/2018 Reported: 12/26/2018 Physician(s): Curtis Oseguera M.D. [facility] Diagnosis: Source of Specimen: SCREENING IMAGED [...] determined by the Surgical Pathology Department at [facility] as part of an ongoing quality improvement analyst program and in compliance with federally [...] characteristics determined by the Surgical Pathology Department [facility]. It has not been cleared or approved by the U. S. Food and Drug Administration. us Curtis Oseguera MD LAB CYTOLOGY ORDERABLES Final Result [facility] [address] [place], [place] [address] [phone] * Serum Hepatitis C ab (06/29/2015 2:43 PM COMMUNITY HEALTH REPRESENTATIVE) HCV ab Non-Reacti ve Non-Reacti ve HISTORICAL RESULTS Serum 06/29/2015 2:43 PM COMMUNITY HEALTH REPRESENTATIVE Miriam VALLE LAB BLOOD ORDERAB LES Final Result Performing Organization Address City/[facility] Co de Phone Number HISTORICAL RESULTS from Last 3 Months or Most Recently Relevant to Health Maintenance Insurance [facility] [place] [facility] [place] [facility] [place] Care Teams Pv Design Engineer Relationship Specialty Start Date End Date Bhupinder Tobias MD [address] [place] [address] PCP - General Internal Medicine 06/03/20 Cash Woodruff III, MD [address] [place] [address] Rheumatology 04/12/17 Jorge Aguiar MD [address] [place] [address] Consulting Physician Urology 11/10/20 Khoa Arias MD [address] [place] [address] Referring Physician Gastroenterology 03/20/21
[2024-10-30] MEDS: HYDROmorphone HCL INJ (*CRX) 2 MG/ML VIAL 0.5 MG IV PUSH (19:35)
[2024-10-30] MEDS: ONDANSETRON INJ 4 MG/2 ML VIAL IV PUSH (19:41)
[2024-10-30 20:17] VITALS: BP 136/82; PULSE 88; RESP 14; TEMP 36.8; O2SAT 100
[2024-10-30 20:18] VITALS: BP 136/82; PULSE 88; RESP 14; TEMP 36.8; O2SAT 100
== END 2024-10-30 20:21 | disposition home or self-care (01) ==
PROVIDERS: Physician Assistant; Emergency Provider Emergency Medicine; PCP Internal Medicine
DX: K29.70 Gastritis, unspecified, without bleeding (principal); K58.1 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 syndrome with constipation; R10.12 Left upper quadrant pain; G89.4 Chronic pain syndrome; Z20.822 Contact with and (suspected) exposure to COVID-19; F11.90 Opioid use, unspecified, uncomplicated; L40.9 Psoriasis, unspecified; E55.9 Vitamin D deficiency, unspecified; K21.9 Gastro-esophageal reflux disease without esophagitis; M81.8 Other osteoporosis without current pathological fracture; M17.0 Bilateral primary osteoarthritis of knee; M79.7 Fibromyalgia; M06.9 Rheumatoid arthritis, unspecified; Q79.60 Ehlers-Danlos syndrome, unspecified; F41.1 Generalized anxiety disorder; Z87.442 Personal history of urinary calculi; Z86.2 Personal history of diseases of the blood and blood-forming organs and certain disorders involving the immune mechanism; Z87.11 Personal history of peptic ulcer disease; Z87.01 Personal history of pneumonia (recurrent); Z87.440 Personal history of urinary (tract) infections; Z87.891 Personal history of nicotine dependence; N28.1 Cyst of kidney, acquired; K76.0 Fatty (change of) liver, not elsewhere classified
CPT/HCPCS: 36415; 74177; 80053; 81003; 83690; 85025; 87637; 96374; 96375; 99284; J1171; J2405; Q9967

== ENCOUNTER 2024-11-11 10:14 | Outpatient (CLI) | payer OTHER, SELFPAY ==
--- OUTSIDE RECORDS SUMMARY | 2024-11-11 10:19 | XMS_ITS ---
Author Organization [facility] Address [facility] [address] [facility] [address] [place] [address] Care Team Providers Care Track Liner Operator Name Role Phone Jose Zhang DO Primary Care Provider Alix Romero Unavailable [phone] REASON FOR VISIT ADHD Follow Up - seen early Social History Sex Assigned At : Social History Observation Description Sex Assigned At Female Encounters Encounter Location Date Provider Diagnosis [facility] [place] [id number] [facility] [address] [facility] [address] [place] [address] 10/07/2024 Alix Sanchez Plan Of Treatment Next Appt Details Provider Name:Alix benton, 12/01/2024 08:45:00 AM, [address], [facility] [address], [place], [address], Progress Notes * JULIAN SAUERDOB:1975 ( 49 yo F)Acc No.[id number]:10/07/2024 Patient: JULIAN FREEMAN Provider: Joseph Sanchez :1975 A ge:49 Y S ex:Female Date:10/07/2024 Address:[address] [facility] Pcp:Jose Zhang DO Subjective: * Chief Complaints: * 1 . ADHD Follow Up - seen early. * Medical History: Objective: * Vitals: Assessment: Plan: * Treatment: * Billing Information: * Visit Code: * Procedure Codes: * Electronic signature of Dakota Sanchez on 11/11/2024 at 10:19 AM CDT Sign off status: Pending * Provider: Joseph Sanchez Date: 0 10/07/2024 Generated for Tree regalado/Caryl/Dayna on: 0 11/11/2024 10:19 AM CDT
--- OUTSIDE RECORDS SUMMARY | 2024-11-11 10:19 | XMS_ITS | Clinical Summary ---
Author Organization [facility] Serious Business Address [address] [facility] [place] [address] Care Team Providers Care Fitness Sales Consultant Name Role Phone Jonathan Hartman RN Unavailable Feliciano Dash MD Primary Care Provider [phone] Source Comments [facility],non-owned Affiliates and Associated Physician Practices is amultiple site organization consisting of ambulatory clinics and hospital sitesin [place], [place], [place] and [place]. This disclosure is being madepursuant to the Care Everywhere program and may not contain all information available regarding this patient. Last updated 18.[facility] Allergies Active Allergy Reactions [...] transdermal route every 24 hours. Obtains from [facility] in [place]. 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 Obtains from [facility] in [place]. 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 All rights reserved. The codes documented in this report are preliminary and upon general technician review may be revised to meet current compliance requirements. Armando Corona, 12/15/2015 12:47:51 PM This report has been signed electronically. Number of Addenda: 0 Note Initiated On: 12/15/2015 12:23 PM [facility] 12/15/2015 12:2 3 PM CDT Narrative Transcriptions Armando Corona MD - 12/15/2015 12:53 PM CDT Neg colon s/p random bx us Armando Corona MD GI PROCEDURE ORDERABLES Edited R esult - Final [facility] * (ABNORMAL) LIPID PROFILE (08/02/2015 10:02 AM CDT) Cholesterol 184 <200 mg/dL 08/02/2015 10:49 AM CDT [facility] Triglycerides 156(H) <150 mg/dL 08/02/2015 10:49 AM CDT [facility] HDL Cholesterol 43 >40 mg/dL 08/02/2015 10:49 AM CDT [facility] LDL Calculated 110 <130 mg/dL 08/02/2015 10:49 AM CDT [facility] VLDL Calculated 31(H) <=30 mg/dL 08/02/2015 10:49 AM CDT [facility] Chol HDL Ratio 4.3 <4.5 08/02/2015 10:49 AM CDT [facility] LDL/HDL Ratio 2.6 <5.0 08/02/2015 10:49 AM CDT [facility] Blood BLOOD SPECIMEN / Unknown Lab Venipuncture / Unknown 08/02/2015 10:02 AM CDT 08/02/2015 10:13 AM CDT us Chucho Hinton MD LAB - CHEMISTRY ORDERABLES Fi nal Result [facility] [address] [place] [address] from Last 3 Months or Most Recently Relevant to Health Maintenance Insurance [facility] SELF PAY NO INSURANCE Member Subscriber Plan / Payer (Ef fective for All Dates) Name:Julian Sauer Member ID:Not on file Relation to Subscriber:Not on file Name:JULIAN SAUER Subscriber ID:Not on file (Home) Address: [address] [place] [address] Payer ID:Not on file Group ID:Not on file Type:Self Pay Address: [place], [place] [facility] [employer] [employer] [facility] [employer] [facility] SELF PAY NO INSURANCE Member Subscriber Plan / Payer (Ef fective for All Dates) Name:Julian Sauer Member ID:Not on file Relation to Subscriber:Not on file Name:JULIAN SAUER Subscriber ID:Not on file Address: [address] [place] [address] Payer ID:Not on file Group ID:Not on file Type:Self Pay Address: [place], [place] [facility] SELF PAY NO INSURANCE Member Subscriber Plan / Payer (Ef fective for All Dates) Name:Julian Sauer Member ID:Not on file Relation to Subscriber:Not on file Name:JULIAN SAUER Subscriber ID:Not on file Address: [address] [place] [address] Payer ID:Not on file Group ID:Not on file Type:Self Pay Address: [place], [place] Advance Directives * Full Code (Latest Code Status on File) Date Activated Date Inactivated Comments 01/29/2017 7:53 PM 02/02/2017 1:02 PM * Full Code Date Activated Date Inactivated Comments 08/02/2015 1:57 AM 08/05/2015 3:00 PM * Full Code Date Activated Date Inactivated Comments 07/13/2015 10:36 PM 07/16/2015 3:55 PM Care Teams Fitness Sales Consultant Relationship Specialty Start Date End Date Feliciano Dash MD [address] [facility] [address] [place] [address] PCP - General 07/14/21 Jonathan Hartman RN Dampener 07/14/15
--- OUTSIDE RECORDS SUMMARY | 2024-11-11 10:19 | XMS_ITS | Clinical Summary ---
Author Organization [facility] Address [address], [address] [address] Phone Care Team Providers Care Staffing Rn Name Role Phone Marbin Fair DO Unavailable [phone] Amadeo Hernandez MD Unavailable Isaiah Quiros MD Primary Care Provider Medications cholestyramine (QUESTRAN) 4 GM Pack Take 1 Packet by mouth 2 times daily (with meals). 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 Gender Identity Not on file Sexual Orientation Not on file Plan of Treatment Health Maintenance Due Date Last Done Comments Hepatitis C Virus (HCV) Screening 1975 TdaP Immunization 1975 Hepatitis B Immunization (1 of 3 - 19+ 3-dose series) 1993 Pap Smear 1995 Cervical Cancer Screening (CCS) 2004 HPV/Cotest 2004 Cologuard 2019 Immunochemical Fecal Occult Blood 2019 SARS-COV-2 Immunization ( season) 2023 02/02/2021, 07/21/2020, 06/30/2020 Pneumococcal Immunization (5 0+ years) (1 of 1 - PCV) 2024 Zoster Immunization (1 of 2) 2024 Influenza Immunization (#1) 12/21/202401/20, 03/10/2015 Colonoscopy 09/22/2030 09/22/2020, 05/02/2018, 03/09/2015 Colorectal Cancer Screening 09/22/2030 Respiratory Syncytial Virus (RSV) Immunization (Adult) (1 - 1-dose 75+ series) 2049 Human Papillomavirus (HPV) Immunization Aged Out No longer eligible b ased on patient's age to complete this topic Meningococcal Immunization (ACWY) Aged Out No longer [...] Relevant to Health Maintenance Insurance Care Teams Staffing Rn Relationship Specialty Start Date End Date Isaiah Quiros MD [address], [address] [place] [id number] PCP - General Internal Medicine 05/08/18 Marbin Fair DO Gastroenterology 12/03/16 Amadeo Hernandez MD [address] [place] [address] 12/03/16
--- OUTSIDE RECORDS SUMMARY | 2024-11-11 10:19 | XMS_ITS | Clinical Summary ---
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 Gender Identity Not on file Sexual Orientation Not on file Last Filed Vital Signs Vital Sign Reading Time Taken Comments Blood Pressure 108/79 03/01/2021 3:00 PM REHABILITATION SPECIALIST Pulse 79 03/01/2021 3:00 PM REHABILITATION SPECIALIST Temperature 36.2 C (97.2 F) 03/01/2021 12:34 PM REHABILITATION SPECIALIST Respiratory Rate 16 03/01/2021 3:00 PM REHABILITATION SPECIALIST Oxygen Saturation 98% 03/01/2021 3:00 PM REHABILITATION SPECIALIST Inhaled Oxygen Concentration - - Weight 86.1 kg (189 lb 13.1 oz) 021 12:34 PM REHABILITATION SPECIALIST Height 167.6 cm (5' 6) 03/01/2021 12:3 4 PM REHABILITATION SPECIALIST Body Mass Index 30.64 03/01/2021 12:34 PM REHABILITATION SPECIALIST Plan of Treatment Health Maintenance Due Date [...] patient's age to complete this topic Insurance [facility] Care Teams Director Of Application Development Relationship Specialty Start Date End Date Bhupinder Tobias MD [address] [address] PCP - General INTERNAL MEDICINE 03/01/21
--- OUTSIDE RECORDS SUMMARY | 2024-11-11 10:19 | XMS_ITS | Patient Health Record ---
Author Organization [facility] [employer] [facility] Address [address] [facility] [address] [place] [address] Care Team Providers Care Clinical Engineer Name Role Phone Jose Zhang DO Primary Care Provider UnavailAlix Sher Unavailable [phone] Mario Diaz Unavailable [phone] Natty Rogers Unavailable [phone] Jared Jensen Unavailable [phone] Chari Pappas Unavailable [phone] Jyoti New Unavailable [phone] Allergies No Known Allergies Results Component Value Reference Range Notes UDT Reviewed date:09/23/2024 10:59:52 AM Interpretation: Performing Lab: Notes/Report: THC POS 0 - 50 ng/ml Cocaine NEG 0 - 300 ng/ml Amphetamine NEG 0 - 1000 ng/ml Buprenorphine (BUP) NEG 0 - 10 ng/ml Secobarbital (Bar) NEG 0 - 300 ng/ml Oxazepam (BZO) POS 0 - 300 ng/ml 8-bwhemaujtm-7,7-szdcylsb-8, 3-diphen ylpyrrolidine (EDDP) NEG 0 - 300 ng/ml Methamphetamine (MET) NEG 0 - 1000 ng/ml Methylenedioxymethamphetamine (MDMA) NEG 0 - 500 ng/ml Morphine (MOP 300/IAI1271) POS 0 - 300 ng/ml Methadone (MTD) NEG 0 - 300 ng/ml Phencyclidine (PCP) NEG 0 - 25 ng/ml Nortriptyline (TCA) NEG 0 - 1000 ng/ml Oxycodone NEG 0 - 300 ng/ml x NEG 0 - 300 ng/ml THCCOOH Reviewed date:10/16/2024 03:20:21 PM Interpretation: Performing Lab: Notes/Report: THCCOOH 96.6 15.0 ng/mL Not Medicated Inconsistent Benzodiazepines Reviewed date:10/16/2024 03:20:21 PM Interpretation: Performing Lab:[facility], [address] [facility], Director - [id number] Notes/Report: An exception occurred while processing this report and so it has incomplete data. Please contact [employer] for assistance. Medicated Consistent Medicated Consistent [...] Not Medicated Consistent Not Medicated Consistent Specific [place] 1.019 1.003 - 1.030 pH 6.0 3.0 [...] Oxazepam (BZO) P 0 - 300 ng/ml 8-jtmkeaveau-9,6-giryblmq-3, 3-diphen ylpyrrolidine (EDDP) N 0 - 300 ng/ml Methamphetamine (MET) N 0 - 1000 ng/ml Methylenedioxymethamphetamine (MDMA) N 0 - 500 ng/ml Morphine (MOP 300/[id number]) N 0 - 300 ng/ml Methadone (MTD) N 0 - 300 ng/ml Phencyclidine (PCP) N 0 - 25 ng/ml Nortriptyline (TCA) N 0 - 1000 ng/ml Oxycodone N 0 - 300 ng/ml x N 0 - 300 ng/ml UDT Reviewed date:01/30/2024 09:33:30 AM Interpretation: Performing Lab: Notes/Report: THC p 0 - 50 ng/ml Cocaine n 0 - 300 ng/ml Amphetamine n 0 - 1000 ng/ml Buprenorphine (BUP) n 0 - 10 ng/ml Secobarbital (Bar) n 0 - 300 ng/ml Oxazepam (BZO) p 0 - 300 ng/ml 2-yhqrgdqiln-0,9-fsrwdmsl-9, 3-diphen ylpyrrolidine (EDDP) n 0 - 300 ng/ml Methamphetamine (MET) n 0 - 1000 ng/ml Methylenedioxymethamphetamine (MDMA) n 0 - 500 ng/ml Morphine (MOP 300/[id number]) n 0 - 300 ng/ml Methadone (MTD) n 0 - 300 ng/ml Phencyclidine (PCP) n 0 - 25 ng/ml Nortriptyline (TCA) n 0 - 1000 ng/ml Oxycodone n 0 - 300 ng/ml x n 0 - 300 ng/ml UDT Reviewed date:11/04/2024 03:14:11 PM Interpretation: Performing Lab: Notes/Report: THC p 0 - 50 ng/ml Cocaine n 0 - 300 ng/ml Amphetamine n 0 - 1000 ng/ml Buprenorphine (BUP) n 0 - 10 ng/ml Secobarbital (Bar) n 0 - 300 ng/ml Oxazepam (BZO) p 0 - 300 ng/ml 5-bqtsapiyko-3,7-kpftmlzp-4, 3-diphen ylpyrrolidine (EDDP) n 0 - 300 ng/ml Methamphetamine (MET) n 0 - 1000 ng/ml Methylenedioxymethamphetamine (MDMA) n 0 - 500 ng/ml Morphine (MOP 300/[id number]) n 0 - 300 ng/ml Methadone (MTD) [...] Oxazepam (BZO) pos 0 - 300 ng/ml 4-zdckrbvuec-7,5-foaypvkk-9, 3-diphen ylpyrrolidine (EDDP) neg 0 - 300 ng/ml Methamphetamine (MET) neg 0 - 1000 ng/ml Methylenedioxymethamphetamine (MDMA) neg 0 - 500 ng/ml Morphine (MOP 300/[id number]) pos 0 - 300 ng/ml Methadone (MTD) [...] Oxazepam (BZO) n 0 - 300 ng/ml 6-llpnwlokzq-1,4-vixkqxea-9, 3-diphen ylpyrrolidine (EDDP) n 0 - 300 ng/ml Methamphetamine (MET) n 0 - 1000 ng/ml Methylenedioxymethamphetamine (MDMA) n 0 - 500 ng/ml Morphine (MOP 300/XQF0397) p 0 - 300 ng/ml Methadone (MTD) n 0 - 300 ng/ml Phencyclidine (PCP) n 0 - 25 ng/ml Nortriptyline (TCA) n 0 - 1000 ng/ml Oxycodone n 0 - 300 ng/ml x n 0 - 300 ng/ml Reason For Referral No Information Medications Medication SIG (Take, Route, Frequency, Duration) Notes Start Date End Date Status Gabapentin 100 MG Oral Ac tive Ondansetron 8 MG Oral Act stanley Metoclopramide HCl 5 MG Oral Active Potassium Citrate ER 15 mEq Oral *Pick strength-form from [employer] for eRX* Active Pantoprazole Sodium 40 MG Oral Active SUMAtriptan Succinate 6 MG/0.5ML Subcutaneous Active Atomoxetine HCl 40 MG 1 capsule in the morning Orally Once a day; Duration: 30 day(s) 11/03/2024 12/03/2024 Active traZODone HCl 100 MG 1 tablet at bedtime Oral Once a day; Duration: 30 days Active ALPRAZolam 0.5 MG 1 tablet twice a day, 0.5 tablet as needed Oral see sign; Duration: 30 days 11/03/2024 Active DULoxetine HCl 60 MG 1 capsule Oral Once a day; Duration: 30 days total dose 90 mg Active DULoxetine HCl 30 MG 1 capsule Orally Once a day; Duration: 30 days total dose 90 mg Active Propranolol HCl 10 MG 1 tablet Orally 3 times a day; Duration: 30 days 08/24/2024 Active buPROPion HCl ER (XL) 300 MG 1 tablet in the morning Oral Once a day; Duration: 30 days Active Dicyclomine HCl 20 MG Oral Active LUBIPROSTONE 24 MCG CAPSULE *Reorder from [employer] for eRx and Interaction Alerts* Active HYDROcodone-Acetamino [...] technical, or vocational programAre you currently employed?: No[employer] is your employer?: I have [employer] and have been ?retired? for 5 years.Marriage and SexualityWhat is your relationship status?: MarriedAre you sexually active?: NoDo you use protection during sex?: NoHow many children do you have?: 5Home and EnvironmentAre there any guns present in your home?: NoAdvance DirectiveDo you have an advance directive?: NoDo you have a medical power of tax attorney?: No Social History Substance UseDo you [...] technical, or vocational programAre you currently employed?: No[employer] is your employer?: I have [employer] and have been ?retired? for 5 years.Marriage and SexualityWhat is your relationship status?: MarriedAre you sexually active?: NoDo you use protection during sex?: NoHow many children do you have?: 5Home and EnvironmentAre there any guns present in your home?: NoAdvance DirectiveDo you have an advance directive?: NoDo you have a medical power of tax attorney?: No Social History Substance UseDo you [...] technical, or vocational programAre you currently employed?: No[employer] is your employer?: I have [employer] and have been ?retired? for 5 years.Marriage and SexualityWhat is your relationship status?: MarriedAre you sexually active?: NoDo you use protection during sex?: NoHow many children do you have?: 5Home and EnvironmentAre there any guns present in your home?: NoAdvance DirectiveDo you have an advance directive?: NoDo you have a medical power of tax attorney?: No Social History Substance UseDo you [...] employed?: NoWho is your employer?: I have [employer] and have been ?retired? for 5 years.Marriage and SexualityWhat is your relationship status?: MarriedAre you sexually active?: NoDo you use protection during sex?: NoHow many children do you have?: 5Home and EnvironmentAre there any guns present in your home?: NoAdvance DirectiveDo you have an advance directive?: NoDo you have a medical power of tax attorney?: No Social History Substance UseDo you [...] technical, or vocational programAre you currently employed?: No[employer] is your employer?: I have [employer] and have been ?retired? for 5 years.Marriage and SexualityWhat is your relationship status?: MarriedAre you sexually active?: NoDo you use protection during sex?: NoHow many children do you have?: 5Home and EnvironmentAre there any guns present in your home?: NoAdvance DirectiveDo you have an advance directive?: NoDo you have a medical power of tax attorney?: No Social History Substance UseDo you [...] technical, or vocational programAre you currently employed?: No[employer] is your employer?: I have [employer] and have been ?retired? for 5 years.Marriage and SexualityWhat is your relationship status?: MarriedAre you sexually active?: NoDo you use protection during sex?: NoHow many children do you have?: 5Home and EnvironmentAre there any guns present in your home?: NoAdvance DirectiveDo you have an advance directive?: NoDo you have a medical power of tax attorney?: No Social History Substance UseDo you [...] employed?: NoW is your employer?: I have [employer] and have been ?retired? for 5 years.Marriage and SexualityWhat is your relationship status?: MarriedAre you sexually active?: NoDo you use protection during sex?: NoHow many children do you have?: 5Home and EnvironmentAre there any guns present in your home?: NoAdvance DirectiveDo you have an advance directive?: NoDo you have a medical power of tax attorney?: No Problems Problem Type SNOMED Code ICD Code Onset Dates Problem Status W/U Status Risk Notes Problem Generalized anxiety disorder (29268689) Generalized anxiety disorder (F41.1) 09/11/19 24 Active confirmed Problem Insomnia disorder related to another mental disorder (98497565) Insomnia due to other mental disorder (F51.05) 09/11/19 24 Active confirmed Problem Attention deficit hyperactivity disorder, combined type (75857011) Attention-deficit hyperactivity disorder, combined type (F90.2) Active confirmed Problem Essential tremor (564896983) Essential tremor (G25.0) Active confirmed Problem Attention deficit hyperactivity disorder, 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) Attention and concentration deficit (R41.840) Active confirmed Problem Attention deficit hyperactivity disorder (613849361) Attention deficit hyperactivity disorder (ADHD), unspecified ADHD type (F90.9) Active confirmed 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 Problem Rheumatoid arthritis (28713455) RA (rheumatoid arthritis) (M06.9) 12/28/19 19 Active confirmed Vital Signs Heart Rate 98 /min 11/03/2024 Height-cm 167.64 cm 11/03/2024 Blood pressure diastolic 76 mm Hg 11/03/2024 Weight-kg 90.27 kg 11/03/2024 Height 66.00 in 11/03/2024 Blood pressure systolic 108 mm Hg 11/03/2024 Weight 199 lbs 11/03/2024 BMI 32.12 kg/m2 11/03/2024 Procedures Procedure Date Ordered Date Performed Result Body Sit e ADHD Testing 09/23/2024 N/A Cannabis Cognitive Testing 09/23/2024 N/A Encounters Encounter Location Date Provider Diagnosis [facility] [facility] [address] [facility] [address] [address] 11/20/2023 Chari Pappas Generalized anxiety disorder F41.1 ; Insomnia due to other mental disorder F51.05 and Other extermination supervisor (current) drug therapy Z79.899 [facility] [address] [facility] [address] [facility] [address] [place] [address] 11/21/2023 Jyoti New Generalized anxiety disorder F41.1 [facility] [place] [address] [facility] [address] [place] [address] 12/05/2023 Jyoti Saavedralidenisha Generalized anxiety disorder F41.1 [facility] [place] [address] [facility] [address] [place] [address] 01/30/2024 Chari Pappas Generalized anxiety disorder F41.1 ; Insomnia due to other mental disorder F51.05 and Other extermination supervisor (current) drug therapy Z79.[address] [facility] [address] [place] [address] 04/16/2024 Alix Sanchez Generalized anxiety disorder F41.1 ; Insomnia due to other mental disorder F51.05 ; 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 and Elevated BP without diagnosis of hypertension R03.[address] [facility] [address] [place] [address] 05/04/2024 Mario Diaz [address] [facility] [address] [place] [address] 06/15/2024 Alix Sanchez Generalized anxiety disorder F41.1 ; Insomnia due to other mental disorder F51.05 and 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 [facility] [address] [place] [address] 08/24/2024 Alix Sanchez Generalized anxiety disorder F41.1 ; Insomnia due to other mental disorder F51.05 ; 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 ; Essential tremor G25.0 ; Encounter for screening for cardiovascular disorders Z13.6 ; Dietary counseling and surveillance Z71.3 and Negative depression screening Z13.[address] [address] 09/23/2024 Alix Sanchez Generalized anxiety disorder F41.1 ; Attention and concentration deficit R41.840 ; Insomnia due to other mental disorder F51.05 ; Essential tremor G25.0 ; 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 ; Encounter for screening for depression Z13.31 ; Encounter for screening for cardiovascular disorders Z13.6 and Negative depression screening Z13.[address] [facility] [address] [place] [address] 10/13/2024 Jared Jensen Attention deficit hyperactivity disorder (ADHD), unspecified ADHD type F90.[address] [facility] [address] [place] [address] 11/03/2024 Alix Sanchez Attention-deficit hyperactivity disorder, combined type F90.2 ; Generalized anxiety disorder F41.1 ; Insomnia due to other mental disorder F51.05 and Essential tremor G25.0 [facility] [facility] [address] [facility] [address] [place] [address] 11/18/2023 [employer] [facility] [facility] [address] [place] [address] [place] [address] 11/19/2023 [employer] [facility] [facility] [address] [facility] [address] [place] [address] 01/21/2024 Natty Rogers Generalized anxiety disorder F41.1 [email or web address] [address] [facility] [address] [place] [address] 05/04/2024 Mario Diaz [email or web address] [address] [facility] [address] [place] [address] 11/18/2023 [employer] [email or web address] [address] [facility] [address] [place] [address] 11/18/2023 [employer] [facility] [employer] [facility] [address] [facility] [address] [place] [address] 11/18/2023 [employer] [facility] [facility] [address] [address] 04/02/2024 [facility] [facility] [address] [address] 08/12/2024 Alix Sanchez Assessments Encounter Date Diagnosis [...] willing to try taper. has been given AL bzo risks handout 11/20/2023 Insomnia due to [...] Family History of MH/NARDA: mom - bipolar, brother-bipola r Physical Medical Conditions: Ehler's Danlos, hysterectomy in 2022, diverticulitis , rheumatoid arthritis Spiritual Beliefs: a mishmash between Methodist, Catholicism.I don't know. I just believe that [...] living situation. Depression: No major concerns, manageable Anger/Aggressi on: Denied Obsessions/Com pulsions: If I start a project, I'm one [...] difficulty completing chores due to physical concerns. Interests/Skil ls/Hobbies: Legos, paint, draw, family cookbook, essential oils [...] or specialist to manage pain. Recommend exploring non-pharmacolo gical pain management techniques, such as relaxation exercises, [...] before college and working on obtaining his [employer] driver's license and a part-time job. - [...] of 44 to 53 and completed a [facility] ADHD and cognitive assessment on 2024-10-13. Based on the results: ADHD Screening: ASRS v1.1 Part A shows a score of 4, which is above the threshold (> 3), indicating positive screening for ADHD symptoms. The Hyperactive/Impul sive subtype is indicative, while the Inattentive subtype [...] attention, commonly associated with ADHD, particularly the hyperactive/impul sive subtype. While some cognitive skills such as [...] can promote consistent application of strategies. on. 11/03/2024 Attention-defici t hyperactivity disorder, combined type (ICD-10 - F90.2) 11/03/2024 Generalized anxiety disorder (ICD-10 - F41.1) 09/23/2024 Insomnia due to other mental disorder [...] qhs practice good sleep hygiene 11/20/2023 Other intermediate (current) drug therapy (ICD-10 - Z79.899) UDS consistent with pain management/opia te, cannabis and alprazolam 01/30/2024 Other extermination supervisor (current) drug therapy (ICD-10 - Z79.899) 04/16/2024 [...] arise 09/23/2024 Essential tremor (ICD-10 - G25.0) 11/03/2024 Insomnia due to other mental disorder (ICD-10 - F51.05) 11/03/2024 Essential tremor (ICD-10 - G25.0) 09/23/2024 EDS [...] needed. Plan: - Continue trazodone for sleep 11/03/2024 Sharee Sauer, adult female with history of ADHD, anxiety, and chronic pain, presenting for ADHD evaluation and medication management. Attention Deficit Hyperactivity Disorder (ADHD) Assessment: ADHD diagnosis confirmed by recent testing. Overall score consistent with ADHD (4 or greater). Test results show average performance in planning and spatial working memory, average number of errors in attention measurements, more errors when distracted in response inhibition, and evidence of impairment in sustained attention. Test interpretation supports ADHD diagnosis, particularly hyperactive-imp ulsive subtype. Dr. Jensen's interpretation confirms strong evidence of ADHD with both hyperactive and inattentive components. Plan: - Initiate Strattera (atomoxetine) for ADHD treatment - Start at 40 mg PO daily - Take in the morning with breakfast or at lunchtime if stomach upset occurs - Informed patient of potential side effects: increased heart rate, blood pressure changes, appetite suppression, stomach upset - Discussed mechanism of action: regulation of dopamine and norepinephrine in prefrontal cortex - Informed patient that medication takes a couple of weeks to build up and rebalance the brain - Monitor heart rate and blood pressure - Follow up in 4 weeks Anxiety Assessment: Patient reports ongoing anxiety managed with current medication regimen. Recent ER visit for cardiac and abdominal symptoms may have exacerbated anxiety. Plan: - Continue alprazolam, plan to titrate down next visit - Continue propranolol 10 mg PO TID - Continue duloxetine 90 mg (30 mg + 60 mg) - Continue bupropion XL 300 mg - Reassess need for Wellbutrin dose adjustment after initiating Strattera Sleep Disturbance Assessment: Patient reports frequent nighttime awakenings, which is a longstanding issue. Plan: - Continue trazodone at bedtime Plan Of Treatment Pending Test Test Name Order Date ADHD Testing 09/23/2024 Cannabis Cognitive Testing 09/23/2024 Next Appt Details Provider Name:Alix benton, 12/01/2024 08:45:00 AM, [address], [facility] [address], [place], [address], Insurance Providers Payer Name Payer Address Payer Phone Subscriber Number Group Number Insured Name Patient Relationship to Insured Coverage Start Date Coverage End Date Cigna [address] [facility] [address] [phone] [id number] JULIAN SAUER Self - patient is the [...] Surgery Date(Month/Year) Sinus surgery Tonsilectomy/adenoids 04/22/1980 Hysterectomy (52316) 03/01/2023 oopherectomy 12/2023
--- OUTSIDE RECORDS SUMMARY | 2024-11-11 10:19 | XMS_ITS | Clinical Summary ---
Author Organization [place] [id number] [facility] Address [address] [place] [address] Phone Care Team Providers Care Seed Technician Name Role Phone Kumar CARRILLO MD, John J. Unavailable [phone] Bhupinder Tobias MD Primary Care Provider [phone] Jorge Aguiar MD Unavailable [phone] Khoa Arias MD Unavailable [phone] Allergies No known active allergies Medications SUMAtriptan [...] (08/30/2021): Added automatically from request for surgery [id number] Abdominal pain 03/31/2021 Assessment & Plan (06/28/2021 10:08 AM PLATE PREPARER): Recently dx with mild pancreatitis. Needs lipase/amylase rechecked. Still has some upper abd pain. Advised pt to f/u with GI also. Assessment & Plan (06/19/2021 8:52 AM PLATE PREPARER): Had abd pain early this month, check amyl/lip and ua. Pain has resolved. Assessment & Plan (05/05/2021 10:13 PM PLATE PREPARER): Having abd pain, bloating, constipation. On meds for IBS and also using suppositories to have BM. Incidental findings of mesenteric fat stranding (adenitis or panniculitis) on abd CT. Awaiting further eval by Dr. Arias. Assessment & Plan (03/31/2021 8:44 AM PLATE PREPARER): Elevated lipase. Imuran stopped. Pt advised to [...] 04/23/2019 Assessment & Plan (03/24/2020 7:29 AM PLATE PREPARER): Normal serum immunoglobulins. Assessment & Plan (01/21/2020 [...] immunoglobulins. Assessment & Plan (04/23/2019 1:46 PM PLATE PREPARER): Check serum immunoglobulins. Osteoporosis without current pathological fractu re 09/18/2018 Assessment & Plan (08/10/2021 8:09 AM CDT): bds checked by pcp in past, is taking ca and vit d and pcp checked vit D and PTH per pt was wnl. Her pcp started her on alendronate 70mg po qweek. Taking ca + vit d 1200mg qd. Assessment & Plan (06/15/2021 10:46 AM PLATE PREPARER): bds checked by pcp in past, is taking ca and vit d and pcp checked vit D and PTH per pt was wnl. Her pcp started her on alendronate 70mg po qweek. Taking ca + vit d 1200mg qd. Assessment & Plan (06/09/2021 8:30 AM PLATE PREPARER): bds checked by pcp in past, is taking ca and vit d and pcp checked vit D and PTH per pt was wnl. Her pcp started her on alendronate 70mg po qweek. Taking ca + vit d 1200mg qd. Assessment & Plan (05/04/2021 8:19 AM PLATE PREPARER): bds checked by pcp in past, is [...] qd. Assessment & Plan (06/03/2020 7:38 AM PLATE PREPARER): bds checked by pcp in past, is taking ca and vit d and pcp checked vit D and PTH per pt was wnl. Her pcp started her on alendronate 70mg po qweek. Taking ca + vit d 1200mg qd. Assessment & Plan (03/25/2020 8:34 AM PLATE PREPARER): bds checked by pcp in past, is taking ca and vit d and pcp checked vit D and PTH per pt was wnl. Her pcp started her on alendronate 70mg po qweek. Taking ca + vit d 1200mg qd. Assessment & Plan (03/24/2020 7:29 AM PLATE PREPARER): bds checked by pcp in past, is [...] qd. Assessment & Plan (04/20/2019 4:56 PM PLATE PREPARER): bds checked by pcp in past, is [...] pcp. Assessment & Plan (06/03/2020 7:37 AM PLATE PREPARER): Was advised in past to get chest CT to r/o aortic aneurysm, to discuss with pcp. Assessment & Plan (03/25/2020 8:33 AM PLATE PREPARER): Was advised in past to get chest CT to r/o aortic aneurysm, to discuss with pcp. Assessment & Plan (03/24/2020 7:29 AM PLATE PREPARER): Was advised in past to get chest [...] pcp. Assessment & Plan (04/20/2019 4:57 PM PLATE PREPARER): Advised to get chest CT to r/o aortic aneurysm, to discuss with pcp. Assessment & Plan (10/31/2018 7:38 AM CDT): Advised to get chest CT to r/o aortic aneurysm, to discuss with pcp. Encounter for long-term (current) use of medicat ions 01/31/2017 Assessment & Plan (05/28/2022 8:07 AM PLATE PREPARER): Quant gold neg 12/2019 Hep B and [...] showed osteoporosis [facility] 08/2019---[facility] labs reveal positive anti-BILLING CUSTOMER SERVICE REPRESENTATIVE antibody which is likely a false positive due to negative ASHLEY. Her father had psoriasis, pt changed from ra to PsA on 03/25/2020. Assessment & Plan (02/26/2022 8:16 AM PLATE PREPARER): Quant gold neg 12/2019 Hep B and [...] showed osteoporosis [facility] 08/2019---[facility] labs reveal positive anti-BILLING CUSTOMER SERVICE REPRESENTATIVE antibody which is likely a false positive [...] showed osteoporosis [facility] 08/2019---[facility] labs reveal positive anti-BILLING CUSTOMER SERVICE REPRESENTATIVE antibody which is likely a false positive [...] showed osteoporosis [facility] 08/2019---[facility] labs reveal positive anti-BILLING CUSTOMER SERVICE REPRESENTATIVE antibody which is likely a false positive [...] showed osteoporosis [facility] 08/2019---[facility] labs reveal positive anti-BILLING CUSTOMER SERVICE REPRESENTATIVE antibody which is likely a false positive [...] showed osteoporosis [facility] 08/2019---[facility] labs reveal positive anti-BILLING CUSTOMER SERVICE REPRESENTATIVE antibody which is likely a false positive due to negative ASHLEY. Her father had psoriasis, pt changed from ra to PsA on 03/25/2020. Assessment & Plan (06/28/2021 8:44 AM PLATE PREPARER): Quant gold neg 12/2019 Hep B and [...] showed osteoporosis [facility] 08/2019---[facility] labs reveal positive anti-BILLING CUSTOMER SERVICE REPRESENTATIVE antibody which is likely a false positive due to negative ASHLEY. Her father had psoriasis, pt changed from ra to PsA on 03/25/2020. Assessment & Plan (06/15/2021 10:44 AM PLATE PREPARER): Quant gold neg 12/2019 Hep B and [...] showed osteoporosis [facility] 08/2019---[facility] labs reveal positive anti-BILLING CUSTOMER SERVICE REPRESENTATIVE antibody which is likely a false positive due to negative ASHLEY. Her father had psoriasis, pt changed from ra to PsA on 03/25/2020. Assessment & Plan (06/09/2021 10:15 AM PLATE PREPARER): Quant gold neg 12/2019 Hep B and [...] showed osteoporosis [facility] 08/2019---[facility] labs reveal positive anti-BILLING CUSTOMER SERVICE REPRESENTATIVE antibody which is likely a false positive due to negative ASHLEY. Her father had psoriasis, pt changed from ra to PsA on 03/25/2020. Assessment & Plan (06/09/2021 8:29 AM PLATE PREPARER): Quant gold neg 12/2019 Hep B and [...] showed osteoporosis [facility] 08/2019---[facility] labs reveal positive anti-BILLING CUSTOMER SERVICE REPRESENTATIVE antibody which is likely a false positive due to negative ASHLEY. Her father had psoriasis, pt changed from ra to PsA on 03/25/2020. Assessment & Plan (05/04/2021 8:19 AM PLATE PREPARER): Quant gold neg 12/2019 Hep B and [...] showed osteoporosis [facility] 08/2019---[facility] labs reveal positive anti-BILLING CUSTOMER SERVICE REPRESENTATIVE antibody which is likely a false positive due to negative ASHLEY. Her father had psoriasis, pt changed from ra to PsA on 03/25/2020. Assessment & Plan (03/31/2021 9:20 AM PLATE PREPARER): Quant gold neg 12/2019 Hep B and [...] showed osteoporosis [facility] 08/2019---[facility] labs reveal positive anti-BILLING CUSTOMER SERVICE REPRESENTATIVE antibody which is likely a false positive [...] showed osteoporosis [facility] 08/2019---[facility] labs reveal positive anti-BILLING CUSTOMER SERVICE REPRESENTATIVE antibody which is likely a false positive [...] showed osteoporosis [facility] 08/2019---[facility] labs reveal positive anti-BILLING CUSTOMER SERVICE REPRESENTATIVE antibody which is likely a false positive [...] showed osteoporosis [facility] 08/2019---[facility] labs reveal positive anti-BILLING CUSTOMER SERVICE REPRESENTATIVE antibody which is likely a false positive [...] showed osteoporosis [facility] 08/2019---[facility] labs reveal positive anti-BILLING CUSTOMER SERVICE REPRESENTATIVE antibody which is likely a false positive due to negative ASHLEY. Her father had psoriasis, pt changed from ra to PsA on 03/25/2020. Assessment & Plan (06/03/2020 2:56 PM PLATE PREPARER): Quant gold neg 12/2019 Hep B and [...] showed osteoporosis [facility] 08/2019---[facility] labs reveal positive anti-BILLING CUSTOMER SERVICE REPRESENTATIVE antibody which is likely a false positive due to negative ASHLEY. Her father had psoriasis, pt changed from ra to PsA on 03/25/2020. Assessment & Plan (03/25/2020 3:03 PM PLATE PREPARER): Quant gold neg 12/2019 HLA B27 negative [...] showed osteoporosis [facility] 08/2019---[facility] labs reveal positive anti-BILLING CUSTOMER SERVICE REPRESENTATIVE antibody which is likely a false positive due to negative ASHLEY. Her father had psoriasis, pt changed from ra to PsA on 03/25/2020. Assessment & Plan (03/24/2020 7:28 AM PLATE PREPARER): Quant gold neg 12/2019 HLA B27 negative [...] showed osteoporosis [facility] 08/2019---[facility] labs reveal positive anti-BILLING CUSTOMER SERVICE REPRESENTATIVE antibody which is likely a false positive [...] showed osteoporosis [facility] 08/2019---[facility] labs reveal positive anti-BILLING CUSTOMER SERVICE REPRESENTATIVE antibody which is likely a false positive [...] showed osteoporosis [facility] 08/2019---[facility] labs reveal positive anti-BILLING CUSTOMER SERVICE REPRESENTATIVE antibody which is likely a false positive [...] showed osteoporosis [facility] 08/2019---[facility] labs reveal positive anti-BILLING CUSTOMER SERVICE REPRESENTATIVE antibody which is likely a false positive [...] showed osteoporosis [facility] 08/2019---[facility] labs reveal positive anti-BILLING CUSTOMER SERVICE REPRESENTATIVE antibody which is likely a false positive [...] showed osteoporosis [facility] 08/2019---[facility] labs reveal positive anti-BILLING CUSTOMER SERVICE REPRESENTATIVE antibody which is likely a false positive [...] osteoporosis Assessment & Plan (04/20/2019 4:59 PM PLATE PREPARER): Quant gold neg 10/2018. TPMT nl 17 [...] 01/31/2017 Assessment & Plan (05/28/2022 8:05 AM PLATE PREPARER): Images from the original note were not included. Had orencia infusion 05/02/2022. Continue orencia monotherapy. Off arava due to lipase elevation. Seeing gi at [facility] now. [place] and egd utd and nl in past year per pt. Had a nl pancreatic US recently with gi. Past serologies: [facility] panel 08/2019---labs reveal positive anti-BILLING CUSTOMER SERVICE REPRESENTATIVE antibody which is likely a false positive due to negative ASHLEY. RF neg but has a possible family hx of psoriatic arthritis (father) so if she develops psoriasis diagnosis will change to psoriatic arthritis. Rt hand US 09/2019 showed: F/u 1 month. Assessment & Plan (02/26/2022 12:12 PM PLATE PREPARER): Images from the original note were not included. High cdai. Her orencia is scheduled tomorrow. Continue orencia monotherapy. Off arava due to lipase elevation. Seeing gi at [facility] now. [place] and egd utd and nl in past year per pt. Had a nl pancreatic US recently with gi. She could be flaring up since her orencia is due tomorrow, overall she still feels that it is helping her joints. Past serologies: [facility] panel 08/2019---labs reveal positive anti-BILLING CUSTOMER SERVICE REPRESENTATIVE antibody which is likely a false positive [...] [facility] now for her elevated lipase. [place] and egd utd and nl in past year per pt. If labs stable will restart low dose arava 10mg po every day. To stay off orencia until recovered from rt knee surgery. Past serologies: [facility] panel 08/2019---labs reveal positive anti-BILLING CUSTOMER SERVICE REPRESENTATIVE antibody which is likely a false positive [...] tomorrow. Seeing gi at [facility] now. [place] and egd utd and nl in past year per pt. Due to burden of dz will give her a short course of oral prednisone. Discussed risks and se of systemic steroids. Past serologies: [facility] panel 08/2019---labs reveal positive anti-BILLING CUSTOMER SERVICE REPRESENTATIVE antibody which is likely a false positive [...] tomorrow. Seeing gi at [facility] now. [place] and egd utd and nl in past year per pt. Due to burden of dz will give her a short course of oral prednisone. Discussed risks and se of systemic steroids. Past serologies: [facility] panel 08/2019---labs reveal positive anti-BILLING CUSTOMER SERVICE REPRESENTATIVE antibody which is likely a false positive [...] gi dr arias for her pancreatitis . [place] and egd utd and nl in past year per pt. Seen with dr woodruff today. Past serologies: [facility] panel 08/2019---labs reveal positive anti-BILLING CUSTOMER SERVICE REPRESENTATIVE antibody which is likely a false positive due to negative ASHLEY. RF neg but has a possible family hx of psoriatic arthritis (father) so if she develops psoriasis diagnosis will change to psoriatic arthritis. Rt hand US 09/2019 showed: F/u 1 month. Assessment & Plan (06/28/2021 10:22 AM PLATE PREPARER): Images from the original note were not [...] Past serologies: [facility] panel 08/2019---labs reveal positive anti-BILLING CUSTOMER SERVICE REPRESENTATIVE antibody which is likely a false positive due to negative ASHLEY. RF neg but has a possible family hx of psoriatic arthritis (father) so if she develops psoriasis diagnosis will change to psoriatic arthritis. Rt hand US 09/2019 showed: F/u 1 month. Assessment & Plan (06/15/2021 10:46 AM PLATE PREPARER): Images from the original note were not [...] Past serologies: [facility] panel 08/2019---labs reveal positive anti-BILLING CUSTOMER SERVICE REPRESENTATIVE antibody which is likely a false positive due to negative ASHLEY. RF neg but has a possible family hx of psoriatic arthritis (father) so if she develops psoriasis diagnosis will change to psoriatic arthritis. Rt hand US 09/2019 showed: F/u 1 month. Assessment & Plan (06/09/2021 10:16 AM PLATE PREPARER): Images from the original note were not [...] Past serologies: [facility] panel 08/2019---labs reveal positive anti-BILLING CUSTOMER SERVICE REPRESENTATIVE antibody which is likely a false positive due to negative ASHLEY. RF neg but has a possible family hx of psoriatic arthritis (father) so if she develops psoriasis diagnosis will change to psoriatic arthritis. Rt hand US 09/2019 showed: F/u 1 month. Assessment & Plan (06/09/2021 8:29 AM PLATE PREPARER): Images from the original note were not [...] Past serologies: [facility] panel 08/2019---labs reveal positive anti-BILLING CUSTOMER SERVICE REPRESENTATIVE antibody which is likely a false positive due to negative ASHLEY. RF neg but has a possible family hx of psoriatic arthritis (father) so if she develops psoriasis diagnosis will change to psoriatic arthritis. Rt hand US 09/2019 showed: F/u 1 month. Assessment & Plan (05/05/2021 10:11 PM PLATE PREPARER): Images from the original note were not [...] Past serologies: [facility] panel 08/2019---labs reveal positive anti-BILLING CUSTOMER SERVICE REPRESENTATIVE antibody which is likely a false positive due to negative ASHLEY. RF neg but has a possible family hx of psoriatic arthritis (father) so if she develops psoriasis diagnosis will change to psoriatic arthritis. Rt hand US 09/2019 showed: F/u 1 month. Assessment & Plan (03/31/2021 9:24 AM PLATE PREPARER): Images from the original note were not [...] Past serologies: [facility] panel 08/2019---labs reveal positive anti-BILLING CUSTOMER SERVICE REPRESENTATIVE antibody which is likely a false positive [...] Past serologies: [facility] panel 08/2019---labs reveal positive anti-BILLING CUSTOMER SERVICE REPRESENTATIVE antibody which is likely a false positive [...] Past serologies: [facility] panel 08/2019---labs reveal positive anti-BILLING CUSTOMER SERVICE REPRESENTATIVE antibody which is likely a false positive [...] Past serologies: [facility] panel 08/2019---labs reveal positive anti-BILLING CUSTOMER SERVICE REPRESENTATIVE antibody which is likely a false positive due to negative ASHLEY. RF neg but has a possible family hx of psoriatic arthritis (father) so if she develops psoriasis diagnosis will change to psoriatic arthritis. Rt [facility] 09/2019 showed: Assessment & Plan (07/18/2020 8:24 AM CDT): Images from the original note were not included. High cdai. On imuran to 100mg bid and Stelara. Discussed potential se and risks of stelara tx. To see her gi for her diarrhea, she is due for colonoscopy. Continue imuran. To get covid 19 vaccine when available. Past serologies: [facility] panel 08/2019---labs reveal positive anti-BILLING CUSTOMER SERVICE REPRESENTATIVE antibody which is likely a false positive due to negative ASHLEY. RF neg but has a possible family hx of psoriatic arthritis (father) so if she develops psoriasis diagnosis will change to psoriatic arthritis. Rt [facility] 09/2019 showed: Assessment & Plan (06/03/2020 5:27 PM PLATE PREPARER): Images from the original note were not [...] Past serologies: [facility] panel 08/2019---labs reveal positive anti-BILLING CUSTOMER SERVICE REPRESENTATIVE antibody which is likely a false positive due to negative ASHLEY. RF neg but has a possible family hx of psoriatic arthritis (father) so if she develops psoriasis diagnosis will change to psoriatic arthritis. Rt [facility] 09/2019 showed: Assessment & Plan (03/25/2020 3:01 PM PLATE PREPARER): Images from the original note were not [...] Past serologies: [facility] panel 08/2019---labs reveal positive anti-BILLING CUSTOMER SERVICE REPRESENTATIVE antibody which is likely a false positive due to negative ASHLEY. RF neg but has a possible family hx of psoriatic arthritis (father) so if she develops psoriasis diagnosis will change to psoriatic arthritis. Rt [facility] 09/2019 showed: Assessment & Plan (03/24/2020 7:29 AM PLATE PREPARER): Images from the original note were not included. Bernardino zapien Wants to go back to sq orencia, gave pt 1 mo of samples and will start approval. Can't come in for iv orencia, her dad is on hospice. Increase imuran to 100mg bid, check cbc/cmp in 2 weeks and f/u in 1month. Past serologies: [facility] panel 08/2019---labs reveal positive anti-BILLING CUSTOMER SERVICE REPRESENTATIVE antibody which is likely a false positive due to negative ASHLEY. RF neg but has a possible family hx of psoriatic arthritis (father) so if she develops psoriasis diagnosis will change to psoriatic arthritis. Rt [facility] 09/2019 showed: Assessment & Plan (02/19/2020 11:34 AM CDT): Bernardino zapien Wants to go back to sq orencia, gave pt 1 mo of samples and will start approval. Can't come in for iv orencia, her dad is on hospice. Increase imuran to 100mg bid, check cbc/cmp in 2 weeks and f/u in 1month. Past serologies: [facility] panel 08/2019---labs reveal positive anti-BILLING CUSTOMER SERVICE REPRESENTATIVE antibody which is likely a false positive due to negative ASHLEY. RF neg but has a possible family hx of psoriatic arthritis (father) so if she develops psoriasis diagnosis will change to psoriatic arthritis. Rt [facility] 09/2019 showed: Assessment & Plan (01/22/2020 [...] Past serologies: [facility] panel 08/2019---labs reveal positive anti-BILLING CUSTOMER SERVICE REPRESENTATIVE antibody which is likely a false positive [...] every day. [facility] panel 08/2019---labs reveal positive anti-BILLING CUSTOMER SERVICE REPRESENTATIVE antibody which is likely a false positive due to negative ASHLEY. Otherwise labs look good. No evidence of a new autoimmune connective tissue disease. Cont orencia sq and imuran 100mg po qhs. [place] better on iv orencia, will change from [...] since resolved. [facility] panel 08/2019---labs reveal positive anti-BILLING CUSTOMER SERVICE REPRESENTATIVE antibody which is likely a false positive [...] of orencia. [facility] panel 08/2019---labs reveal positive anti-BILLING CUSTOMER SERVICE REPRESENTATIVE antibody which is likely a false positive [...] of orencia. [facility] panel 08/2019---labs reveal positive anti-BILLING CUSTOMER SERVICE REPRESENTATIVE antibody which is likely a false positive [...] wnl. Assessment & Plan (04/23/2019 1:46 PM PLATE PREPARER): High cdai. On orencia IV but has [...] citrate. Assessment & Plan (06/03/2020 2:56 PM PLATE PREPARER): Multiple kidney stones for over 10 yrs, [...] on file Legal Sex Female 9:24 PM PLATE PREPARER Gender Identity Female 08/14/2022 11:32 AM CDT [...] HEPATITIS C AB Routine 06/29/2015 2:43 PM PLATE PREPARER from Last 3 Months or Most Recently Relevant to Health Maintenance Results * ThinPrep Pap with HPV (12/24/2018 3:41 PM CDT) 12/24/2018 3:41 PM CDT 12/25/2018 8:54 AM CDT Narrative [facility] - 12/26/2018 2:53 PM CDT [facility] Department of Pathology [address] [place] [id number] Final Report with Addendum Patient Name: JULIAN SAUER Address: [address] [place] [address] Gender: F : 1975 (Age: 43) Service: Laboratory Location: Lab [facility] #: [id number] Patient Type: Ref Lab Taken: 12/24/2018 Received: 12/25/2018 Accessioned:: 12/26/2018 Reported: 12/26/2018 Physician(s): Curtis Oseguera M.D. [facility] Diagnosis: Source of Specimen: SCREENING IMAGED [...] determined by the Surgical Pathology Department at [facility] as part of an ongoing quality control tech program and in compliance with federally [...] characteristics determined by the Surgical Pathology Department [facility]. It has not been cleared or approved by the U. S. Food and Drug Administration. Curtis Oseguera MD LAB CYTOLOGY ORDERABLES Final Result Performing Organization Address City/[facility] [[email or web address]] Co de Phone Number [address] [phone] * Serum Hepatitis C ab (06/29/2015 2:43 PM PLATE PREPARER) HCV ab Non-Reacti ve Non-Reacti ve HISTORICAL RESULTS Serum 06/29/2015 2:43 PM PLATE PREPARER Miriam VALLE LAB BLOOD ORDERAB LES Final Result Performing Organization Address City/[facility] [[email or web address]] Co de Phone Number HISTORICAL RESULTS from Last 3 Months or Most Recently Relevant to Health Maintenance Insurance [facility] [employer] Care Teams Seed Technician Relationship Specialty Start Date End Date Bhupinder Tobias MD [address] [place] [address] PCP - General Internal Medicine 06/03/20 Cash Woodruff III, MD [address] [place] [address] Rheumatology 04/12/17 Jorge Aguiar MD [address] [facility] [address] [place] [address] Consulting Physician Urology 11/10/20 Khoa Arias MD [address] [place] [address] Referring Physician Gastroenterology 03/20/21
--- OUTSIDE RECORDS SUMMARY | 2024-11-11 10:19 | XMS_ITS | Clinical Summary ---
Author Organization [facility] Address [address] [place] [address] Phone Care Team Providers Care Transit Driver Name Role Phone Isaiah Quiros MD Primary Care Provider [phone] Allergies No known active allergies Medications topiramate [...] tablet Take 300 mg by mouth daily resource engineer. Active pregabalin (LYRICA) 100 mg Capsule [...] Comments Blood Pressure 131/87 04/01/2019 10:31 AM CIVIL ENGINEERING PROFESSIONAL Pulse 101 04/01/2019 10:31 AM CIVIL ENGINEERING PROFESSIONAL Temperature 36.4 C (97.6 F) 12/29/2018 12:00 PM CDT Respiratory Rate 18 12/29/2018 12:00 PM CDT Oxygen Saturation 99% 12/29/2018 12:00 PM CDT Inhaled Oxygen Concentration - - Weight 90.5 kg (199 lb 9.6 oz) 04/01/2019 10:31 AM CIVIL ENGINEERING PROFESSIONAL Height 170.7 cm (5' 7.2) 04/01/2019 10:31 AM CS T Body Mass Index 31.08 04/01/2019 10:31 AM CIVIL ENGINEERING PROFESSIONAL Plan of Treatment Health Maintenance Due Date [...] Tdap) 05/10/2027 Insurance [employer] BLUE ACCESS/TRUE BLUE PPO BS BLUE ACCESS/TRUE BLUE PPO Advance Directives For more information, please contact: [phone] * Full Code (Latest Code Status on File) Date Activated Date Inactivated Comments 12/27/2018 10:12 AM 12/29/2018 7:43 PM Care Teams Transit Driver Relationship Specialty Start Date End Date Isaiah Quiros MD [address] [place] [address] PCP - General Internal Medicine 04/16/18
--- OUTSIDE RECORDS SUMMARY | 2024-11-11 10:19 | XMS_ITS | Patient Health Record ---
Author Organization [facility] Address [address] [place] [address] Care Team Providers Care Fuel Cell Binder Name Role Phone NADINE RUSH Unavailable [phone] Allergies No Known Allergies Reason For Referral Reason EVAL AND TREAT Diagnosis 1 Chronic pain syndrom e (G89.4) Referral Organization [facility] Referring Provider First Name TERESA Referring Provider Last Name KARL Referring Provider Speciality Physician Saw Superintendent Referred Provider Specialty Pain Medicin e Referral Priority Routine Referral Appointment Date 02/25/2024 Social History Tobacco Use: Social History Observation Description Date Details (start date - stop date) Former Smoker NA - NA Tobacco Control (Standard) Question Answer Notes Tobacco use: Former smoker Problems Problem Type SNOMED Code ICD Code Onset Dates Problem Status W/U Status Risk Notes Problem 190488110 Chronic pain syndrome (G89.4) Active confirmed Vital Signs Height 66 in 02/25/2024 Patient Reported Normal Blood Pressure Patient Reported Normal Temperature Weight 200 lbs 02/25/2024 Patient Reported Normal Blood Pressure Patient Reported Normal Temperature BMI 32.28 kg/m2 02/25/2024 Patient Reported Normal Blood Pressure Patient Reported Normal Temperature Encounters Encounter Location Date Provider Diagnosis [facility] [address] [place] [address] 02/25/2024 NADINE RUSH Chronic pain syndrom e [...] Insured Coverage Start Date Coverage End Date [facility] [address] [place] [address] [id number] Madalyn Smith Self - patient is the insured Medical (General) History Medical History History ICD Code Meredith Camilla 05/23/1991 Obesity
--- OUTSIDE RECORDS SUMMARY | 2024-11-11 10:19 | XMS_ITS | Referral Summary ---
Author Organization [id number] Address [address] [place] [address] Phone Care Team Providers Care Cashier And Waiter/Waitress Name Role Phone Kumar CARRILLO MD, John J. Unavailable [phone] Bhupinder Tobias MD Primary Care Provider [phone] Jorge Aguiar MD Unavailable [phone] Khoa Arias MD Unavailable [phone] Allergies No known active allergies Medications SUMAtriptan [...] (08/30/2021): Added automatically from request for surgery [id number] Abdominal pain 03/31/2021 Assessment & Plan (06/28/2021 10:08 AM REFINING EQUIPMENT OPERATOR): Recently dx with mild pancreatitis. Needs lipase/amylase rechecked. Still has some upper abd pain. Advised pt to f/u with GI also. Assessment & Plan (06/19/2021 8:52 AM REFINING EQUIPMENT OPERATOR): Had abd pain early this month, check amyl/lip and ua. Pain has resolved. Assessment & Plan (05/05/2021 10:13 PM REFINING EQUIPMENT OPERATOR): Having abd pain, bloating, constipation. On meds for IBS and also using suppositories to have BM. Incidental findings of mesenteric fat stranding (adenitis or panniculitis) on abd CT. Awaiting further eval by Dr. Arias. Assessment & Plan (03/31/2021 8:44 AM REFINING EQUIPMENT OPERATOR): Elevated lipase. Imuran stopped. Pt advised [...] 04/23/2019 Assessment & Plan (03/24/2020 7:29 AM REFINING EQUIPMENT OPERATOR): Normal serum immunoglobulins. Assessment & Plan [...] immunoglobulins. Assessment & Plan (04/23/2019 1:46 PM REFINING EQUIPMENT OPERATOR): Check serum immunoglobulins. Osteoporosis without current pathological fractu re 09/18/2018 Assessment & Plan (08/10/2021 8:09 AM CDT): bds checked by pcp in past, is taking ca and vit d and pcp checked vit D and PTH per pt was wnl. Her pcp started her on alendronate 70mg po qweek. Taking ca + vit d 1200mg qd. Assessment & Plan (06/15/2021 10:46 AM REFINING EQUIPMENT OPERATOR): bds checked by pcp in past, is taking ca and vit d and pcp checked vit D and PTH per pt was wnl. Her pcp started her on alendronate 70mg po qweek. Taking ca + vit d 1200mg qd. Assessment & Plan (06/09/2021 8:30 AM REFINING EQUIPMENT OPERATOR): bds checked by pcp in past, is taking ca and vit d and pcp checked vit D and PTH per pt was wnl. Her pcp started her on alendronate 70mg po qweek. Taking ca + vit d 1200mg qd. Assessment & Plan (05/04/2021 8:19 AM REFINING EQUIPMENT OPERATOR): bds checked by pcp in past, [...] qd. Assessment & Plan (06/03/2020 7:38 AM REFINING EQUIPMENT OPERATOR): bds checked by pcp in past, is taking ca and vit d and pcp checked vit D and PTH per pt was wnl. Her pcp started her on alendronate 70mg po qweek. Taking ca + vit d 1200mg qd. Assessment & Plan (03/25/2020 8:34 AM REFINING EQUIPMENT OPERATOR): bds checked by pcp in past, is taking ca and vit d and pcp checked vit D and PTH per pt was wnl. Her pcp started her on alendronate 70mg po qweek. Taking ca + vit d 1200mg qd. Assessment & Plan (03/24/2020 7:29 AM REFINING EQUIPMENT OPERATOR): bds checked by pcp in past, [...] qd. Assessment & Plan (04/20/2019 4:56 PM REFINING EQUIPMENT OPERATOR): bds checked by pcp in past, [...] pcp. Assessment & Plan (06/03/2020 7:37 AM REFINING EQUIPMENT OPERATOR): Was advised in past to get chest CT to r/o aortic aneurysm, to discuss with pcp. Assessment & Plan (03/25/2020 8:33 AM REFINING EQUIPMENT OPERATOR): Was advised in past to get chest CT to r/o aortic aneurysm, to discuss with pcp. Assessment & Plan (03/24/2020 7:29 AM REFINING EQUIPMENT OPERATOR): Was advised in past to get [...] pcp. Assessment & Plan (04/20/2019 4:57 PM REFINING EQUIPMENT OPERATOR): Advised to get chest CT to r/o aortic aneurysm, to discuss with pcp. Assessment & Plan (10/31/2018 7:38 AM CDT): Advised to get chest CT to r/o aortic aneurysm, to discuss with pcp. Encounter for long-term (current) use of medicat ions 01/31/2017 Assessment & Plan (05/28/2022 8:07 AM REFINING EQUIPMENT OPERATOR): Quant gold neg 12/2019 Hep B [...] showed osteoporosis [facility] 08/2019---[facility] labs reveal positive anti-ADOBE DEVELOPER antibody which is likely a false positive due to negative ASHLEY. Her father had psoriasis, pt changed from ra to PsA on 03/25/2020. Assessment & Plan (02/26/2022 8:16 AM REFINING EQUIPMENT OPERATOR): Quant gold neg 12/2019 Hep B [...] showed osteoporosis [facility] 08/2019---[facility] labs reveal positive anti-ADOBE DEVELOPER antibody which is likely a false positive [...] showed osteoporosis [facility] 08/2019---[facility] reveal positive anti-ADOBE DEVELOPER antibody which is likely a false positive [...] showed osteoporosis [facility] 08/2019---[facility] reveal positive anti-ADOBE DEVELOPER antibody which is likely a false positive [...] showed osteoporosis [facility] 08/2019---[facility] reveal positive anti-ADOBE DEVELOPER antibody which is likely a false positive [...] showed osteoporosis [facility] 08/2019---[facility] labs reveal positive anti-ADOBE DEVELOPER antibody which is likely a false positive due to negative ASHLEY. Her father had psoriasis, pt changed from ra to PsA on 03/25/2020. Assessment & Plan (06/28/2021 8:44 AM REFINING EQUIPMENT OPERATOR): Quant gold neg 12/2019 Hep B [...] showed osteoporosis [facility] 08/2019---[facility] labs reveal positive anti-ADOBE DEVELOPER antibody which is likely a false positive due to negative ASHLEY. Her father had psoriasis, pt changed from ra to PsA on 03/25/2020. Assessment & Plan (06/15/2021 10:44 AM REFINING EQUIPMENT OPERATOR): Quant gold neg 12/2019 Hep B [...] showed osteoporosis [facility] 08/2019---[facility] labs reveal positive anti-ADOBE DEVELOPER antibody which is likely a false positive due to negative ASHLEY. Her father had psoriasis, pt changed from ra to PsA on 03/25/2020. Assessment & Plan (06/09/2021 10:15 AM REFINING EQUIPMENT OPERATOR): Quant gold neg 12/2019 Hep B [...] showed osteoporosis [facility] 08/2019---[facility] labs reveal positive anti-ADOBE DEVELOPER antibody which is likely a false positive due to negative ASHLEY. Her father had psoriasis, pt changed from ra to PsA on 03/25/2020. Assessment & Plan (06/09/2021 8:29 AM REFINING EQUIPMENT OPERATOR): Quant gold neg 12/2019 Hep B [...] showed osteoporosis [facility] 08/2019---[facility] labs reveal positive anti-ADOBE DEVELOPER antibody which is likely a false positive due to negative ASHLEY. Her father had psoriasis, pt changed from ra to PsA on 03/25/2020. Assessment & Plan (05/04/2021 8:19 AM REFINING EQUIPMENT OPERATOR): Quant gold neg 12/2019 Hep B [...] showed osteoporosis [facility] 08/2019---[facility] labs reveal positive anti-ADOBE DEVELOPER antibody which is likely a false positive due to negative ASHLEY. Her father had psoriasis, pt changed from ra to PsA on 03/25/2020. Assessment & Plan (03/31/2021 9:20 AM REFINING EQUIPMENT OPERATOR): Quant gold neg 12/2019 Hep B [...] showed osteoporosis [facility] 08/2019---[facility] labs reveal positive anti-ADOBE DEVELOPER antibody which is likely a false positive [...] showed osteoporosis [facility] 08/2019---[facility] labs reveal positive anti-ADOBE DEVELOPER antibody which is likely a false positive [...] showed osteoporosis [facility] 08/2019---[facility] reveal positive anti-ADOBE DEVELOPER antibody which is likely a false positive [...] showed osteoporosis [facility] 08/2019---[facility] reveal positive anti-ADOBE DEVELOPER antibody which is likely a false positive [...] showed osteoporosis [facility] 08/2019---[facility] labs reveal positive anti-ADOBE DEVELOPER antibody which is likely a false positive due to negative ASHLEY. Her father had psoriasis, pt changed from ra to PsA on 03/25/2020. Assessment & Plan (06/03/2020 2:56 PM REFINING EQUIPMENT OPERATOR): Quant gold neg 12/2019 Hep B [...] showed osteoporosis [facility] 08/2019---[facility] labs reveal positive anti-ADOBE DEVELOPER antibody which is likely a false positive due to negative ASHLEY. Her father had psoriasis, pt changed from ra to PsA on 03/25/2020. Assessment & Plan (03/25/2020 3:03 PM REFINING EQUIPMENT OPERATOR): Quant gold neg 12/2019 HLA B27 [...] showed osteoporosis [facility] 08/2019---[facility] labs reveal positive anti-ADOBE DEVELOPER antibody which is likely a false positive due to negative ASHLEY. Her father had psoriasis, pt changed from ra to PsA on 03/25/2020. Assessment & Plan (03/24/2020 7:28 AM REFINING EQUIPMENT OPERATOR): Quant gold neg 12/2019 HLA B27 [...] showed osteoporosis [facility] 08/2019---[facility] labs reveal positive anti-ADOBE DEVELOPER antibody which is likely a false positive [...] showed osteoporosis [facility] 08/2019---[facility] labs reveal positive anti-ADOBE DEVELOPER antibody which is likely a false positive [...] showed osteoporosis [facility] 08/2019---[facility] reveal positive anti-ADOBE DEVELOPER antibody which is likely a false positive [...] showed osteoporosis [facility] 08/2019---[facility] reveal positive anti-ADOBE DEVELOPER antibody which is likely a false positive [...] showed osteoporosis [facility] 08/2019---[facility] labs reveal positive anti-ADOBE DEVELOPER antibody which is likely a false positive [...] showed osteoporosis [facility] 08/2019---[facility] labs reveal positive anti-ADOBE DEVELOPER antibody which is likely a false positive [...] osteoporosis Assessment & Plan (04/20/2019 4:59 PM REFINING EQUIPMENT OPERATOR): Quant gold neg 10/2018. TPMT nl [...] 01/31/2017 Assessment & Plan (05/28/2022 8:05 AM REFINING EQUIPMENT OPERATOR): Images from the original note were not included. Had orencia infusion 05/02/2022. Continue orencia monotherapy. Off arava due to lipase elevation. Seeing gi at [facility] now. [place] and egd utd and nl in past year per pt. Had a nl pancreatic US recently with gi. Past serologies: [facility] panel 08/2019---labs reveal positive anti-ADOBE DEVELOPER antibody which is likely a false positive due to negative ASHLEY. RF neg but has a possible family hx of psoriatic arthritis (father) so if she develops psoriasis diagnosis will change to psoriatic arthritis. Rt hand US 09/2019 showed: F/u 1 month. Assessment & Plan (02/26/2022 12:12 PM REFINING EQUIPMENT OPERATOR): Images from the original note were not included. High cdai. Her orencia is scheduled tomorrow. Continue orencia monotherapy. Off arava due to lipase elevation. Seeing gi at [facility] now. [place] and egd utd and nl in past year per pt. Had a nl pancreatic US recently with gi. She could be flaring up since her orencia is due tomorrow, overall she still feels that it is helping her joints. Past serologies: [facility] panel 08/2019---labs reveal positive anti-ADOBE DEVELOPER antibody which is likely a false positive [...] no complications or infections. Seeing gi at [facility] now for her elevated lipase. [place] and egd utd and nl in past year per pt. If labs stable will restart low dose arava 10mg po every day. To stay off orencia until recovered from rt knee surgery. Past serologies: [facility] panel 08/2019---labs reveal positive anti-ADOBE DEVELOPER antibody which is likely a false positive [...] orencia is scheduled tomorrow. Seeing gi at [facility] now. [place] and egd utd and nl in past year per pt. Due to burden of dz will give her a short course of oral prednisone. Discussed risks and se of systemic steroids. Past serologies: [facility] panel 08/2019---labs reveal positive anti-ADOBE DEVELOPER antibody which is likely a false positive [...] orencia is scheduled tomorrow. Seeing gi at [facility] now. [place] and egd utd and nl in past year per pt. Due to burden of dz will give her a short course of oral prednisone. Discussed risks and se of systemic steroids. Past serologies: [facility] panel 08/2019---labs reveal positive anti-ADOBE DEVELOPER antibody which is likely a false positive [...] gi dr arias for her pancreatitis . [place] and egd utd and nl in past year per pt. Seen with dr woodruff today. Past serologies: [facility] panel 08/2019---labs reveal positive anti-ADOBE DEVELOPER antibody which is likely a false positive due to negative ASHLEY. RF neg but has a possible family hx of psoriatic arthritis (father) so if she develops psoriasis diagnosis will change to psoriatic arthritis. Rt hand US 09/2019 showed: F/u 1 month. Assessment & Plan (06/28/2021 10:22 AM REFINING EQUIPMENT OPERATOR): Images from the original note were [...] Past serologies: [facility] panel 08/2019---labs reveal positive anti-ADOBE DEVELOPER antibody which is likely a false positive due to negative ASHLEY. RF neg but has a possible family hx of psoriatic arthritis (father) so if she develops psoriasis diagnosis will change to psoriatic arthritis. Rt hand US 09/2019 showed: F/u 1 month. Assessment & Plan (06/15/2021 10:46 AM REFINING EQUIPMENT OPERATOR): Images from the original note were [...] Past serologies: [facility] panel 08/2019---labs reveal positive anti-ADOBE DEVELOPER antibody which is likely a false positive due to negative ASHLEY. RF neg but has a possible family hx of psoriatic arthritis (father) so if she develops psoriasis diagnosis will change to psoriatic arthritis. Rt hand US 09/2019 showed: F/u 1 month. Assessment & Plan (06/09/2021 10:16 AM REFINING EQUIPMENT OPERATOR): Images from the original note were [...] Past serologies: [facility] panel 08/2019---labs reveal positive anti-ADOBE DEVELOPER antibody which is likely a false positive due to negative ASHLEY. RF neg but has a possible family hx of psoriatic arthritis (father) so if she develops psoriasis diagnosis will change to psoriatic arthritis. Rt hand US 09/2019 showed: F/u 1 month. Assessment & Plan (06/09/2021 8:29 AM REFINING EQUIPMENT OPERATOR): Images from the original note were [...] Past serologies: [facility] panel 08/2019---labs reveal positive anti-ADOBE DEVELOPER antibody which is likely a false positive due to negative ASHLEY. RF neg but has a possible family hx of psoriatic arthritis (father) so if she develops psoriasis diagnosis will change to psoriatic arthritis. Rt hand US 09/2019 showed: F/u 1 month. Assessment & Plan (05/05/2021 10:11 PM REFINING EQUIPMENT OPERATOR): Images from the original note were not included. On arava 10mg po daily and continues on IV Orencia. Will check labs and try going to 20mg of the leflunomide. Seen with dr woodruff today. Is following up with GI Dr. Arais regarding abd pain and constipation, and recent incidental findings of mesenteric fat stranding, possible adenitis or panniculitis on abd CT (done for kidney stones). Past serologies: [facility] panel 08/2019---labs reveal positive anti-ADOBE DEVELOPER antibody which is likely a false positive due to negative ASHLEY. RF neg but has a possible family hx of psoriatic arthritis (father) so if she develops psoriasis diagnosis will change to psoriatic arthritis. Rt hand US 09/2019 showed: F/u 1 month. Assessment & Plan (03/31/2021 9:24 AM REFINING EQUIPMENT OPERATOR): Images from the original note were [...] Past serologies: [facility] panel 08/2019---labs reveal positive anti-ADOBE DEVELOPER antibody which is likely a false positive [...] Past serologies: [facility] panel 08/2019---labs reveal positive anti-ADOBE DEVELOPER antibody which is likely a false positive [...] Past serologies: [facility] panel 08/2019---labs reveal positive anti-ADOBE DEVELOPER antibody which is likely a false positive [...] Past serologies: [facility] panel 08/2019---labs reveal positive anti-ADOBE DEVELOPER antibody which is likely a false positive due to negative ASHLEY. RF neg but has a possible family hx of psoriatic arthritis (father) so if she develops psoriasis diagnosis will change to psoriatic arthritis. Rt [facility] 09/2019 showed: Assessment & Plan (07/18/2020 8:24 AM CDT): Images from the original note were not included. High cdai. On imuran to 100mg bid and Stelara. Discussed potential se and risks of stelara tx. To see her gi for her diarrhea, she is due for colonoscopy. Continue imuran. To get covid 19 vaccine when available. Past serologies: [facility] panel 08/2019---labs reveal positive anti-ADOBE DEVELOPER antibody which is likely a false positive due to negative ASHLEY. RF neg but has a possible family hx of psoriatic arthritis (father) so if she develops psoriasis diagnosis will change to psoriatic arthritis. Rt [facility] 09/2019 showed: Assessment & Plan (06/03/2020 5:27 PM REFINING EQUIPMENT OPERATOR): Images from the original note were [...] Past serologies: [facility] panel 08/2019---labs reveal positive anti-ADOBE DEVELOPER antibody which is likely a false positive due to negative ASHLEY. RF neg but has a possible family hx of psoriatic arthritis (father) so if she develops psoriasis diagnosis will change to psoriatic arthritis. Rt [facility] 09/2019 showed: Assessment & Plan (03/25/2020 3:01 PM REFINING EQUIPMENT OPERATOR): Images from the original note were [...] Past serologies: [facility] panel 08/2019---labs reveal positive anti-ADOBE DEVELOPER antibody which is likely a false positive due to negative ASHLEY. RF neg but has a possible family hx of psoriatic arthritis (father) so if she develops psoriasis diagnosis will change to psoriatic arthritis. Rt [facility] 09/2019 showed: Assessment & Plan (03/24/2020 7:29 AM REFINING EQUIPMENT OPERATOR): Images from the original note were not included. Bernardino zapien Wants to go back to sq orencia, gave pt 1 mo of samples and will start approval. Can't come in for iv orencia, her dad is on hospice. Increase imuran to 100mg bid, check cbc/cmp in 2 weeks and f/u in 1month. Past serologies: [facility] panel 08/2019---labs reveal positive anti-ADOBE DEVELOPER antibody which is likely a false positive due to negative ASHLEY. RF neg but has a possible family hx of psoriatic arthritis (father) so if she develops psoriasis diagnosis will change to psoriatic arthritis. Rt [facility] 09/2019 showed: Assessment & Plan (02/19/2020 11:34 AM CDT): Bernardino zapien Wants to go back to sq orencia, gave pt 1 mo of samples and will start approval. Can't come in for iv orencia, her dad is on hospice. Increase imuran to 100mg bid, check cbc/cmp in 2 weeks and f/u in 1month. Past serologies: [facility] panel 08/2019---labs reveal positive anti-ADOBE DEVELOPER antibody which is likely a false positive due to negative ASHLEY. RF neg but has a possible family hx of psoriatic arthritis (father) so if she develops psoriasis diagnosis will change to psoriatic arthritis. Rt [facility] 09/2019 showed: Assessment & Plan (01/22/2020 [...] Past serologies: [facility] panel 08/2019---labs reveal positive anti-ADOBE DEVELOPER antibody which is likely a false positive [...] every day. [facility] panel 08/2019---labs reveal positive anti-ADOBE DEVELOPER antibody which is likely a false positive due to negative ASHLEY. Otherwise labs look good. No evidence of a new autoimmune connective tissue disease. Cont orencia sq and imuran 100mg po qhs. [place] better on iv orencia, will change from [...] since resolved. [facility] panel 08/2019---labs reveal positive anti-ADOBE DEVELOPER antibody which is likely a false positive [...] of orencia. [facility] panel 08/2019---labs reveal positive anti-ADOBE DEVELOPER antibody which is likely a false positive [...] of orencia. [facility] panel 08/2019---labs reveal positive anti-ADOBE DEVELOPER antibody which is likely a false positive [...] wnl. Assessment & Plan (04/23/2019 1:46 PM REFINING EQUIPMENT OPERATOR): High cdai. On orencia IV but [...] citrate. Assessment & Plan (06/03/2020 2:56 PM REFINING EQUIPMENT OPERATOR): Multiple kidney stones for over 10 [...] on file Legal Sex Female 9:24 PM REFINING EQUIPMENT OPERATOR Gender Identity Female 08/14/2022 11:32 [...] HEPATITIS C AB Routine 06/29/2015 2:43 PM REFINING EQUIPMENT OPERATOR from Last 3 Months or Most Recently Relevant to Health Maintenance Results * ThinPrep Pap with HPV (12/24/2018 3:41 PM CDT) 12/24/2018 3:41 PM CDT 12/25/2018 8:54 AM CDT [facility] - 12/26/2018 2:53 PM CDT [facility] Department of Pathology [address] [place] [address], [place] [address] Final Report with Addendum Patient Name: JULIAN SAUER [address]: [address] [place] [address] Gender: F : 1975 (Age: 43) Service: Laboratory Location: [facility] #: [id number] Patient Type: CH Ref Lab Taken: 12/24/2018 Received: 12/25/2018 Accessioned:: 12/26/2018 Reported: 12/26/2018 Physician(s): Curtis Oseguera M.D. [facility] Diagnosis: Source of Specimen: SCREENING IMAGED [...] Electronically Reviewed and Signed Out By NAEEM Crarera(ASCP) 12/26/2018 12:46:00 Specimen(s) Received: A: SCREENING IMAGED [...] determined by the Surgical Pathology Department at [facility] as part of an ongoing quality control manager program and in compliance with federally [...] the Surgical Pathology Department [facility]. It has not been cleared or approved by the U. S. Food and Drug Administration. us Curtis Oseguera MD LAB CYTOLOGY ORDERABLES Final Result [facility] [address] [place], [place] [address] [phone] * Serum Hepatitis C ab (06/29/2015 2:43 PM REFINING EQUIPMENT OPERATOR) HCV ab Non-Reacti ve Non-Reacti ve HISTORICAL RESULTS Serum 06/29/2015 2:43 PM REFINING EQUIPMENT OPERATOR Miriam VALLE LAB BLOOD ORDERAB LES Final Result Performing Organization Address City/[facility] Co de Phone Number HISTORICAL RESULTS from Last 3 Months or Most Recently Relevant to Health Maintenance Insurance [facility] [place] Care Teams Cashier And Waiter/Waitress Relationship Specialty Start Date End Date Bhupinder Tobias MD [address] [place] [address] PCP - General Internal Medicine 06/03/20 Cash Woodruff III, MD [address] [place] [address] Rheumatology 04/12/17 Jorge Aguiar MD [address] [place] [address] Consulting Physician Urology 11/10/20 Khoa Arias MD [address] [place] [address] Referring Physician Gastroenterology 03/20/21
[2024-11-11 11:27] LABS: Cholesterol 302 mg/dL (0-200); HDL Direct 49 mg/dL; Lipase 509 U/L (23-300); Triglycerides 297 mg/dL (<150)
== END 2024-11-11 10:15 | disposition home or self-care (01) ==
LOC: ANHLAB 10:15
PROVIDERS: PCP Internal Medicine; Visit Provider Internal Medicine
DX: K86.1 Other chronic pancreatitis (principal); E78.5 Hyperlipidemia, unspecified
CPT/HCPCS: 36415; 80061; 83690

== ENCOUNTER → 2024-12-07 15:33 | Outpatient (REF) | payer OTHER, SELFPAY ==
--- NOTE | 2024-12-07 15:33 | S_PTH ---
PATIENT: Madalyn Smith LOC: [facility] U#:[id number] AGE/SX: 49/F ROOM: RE12/07/[address]: Sammy Zeng MD : 1975 BED: DIS: SPEC #: [id number] RECD: 12/08/24 07:11 STATUS: YEIMY RERenee #: [id number] ANABELL: 12/07/24 15:[address]: Sammy Zeng DEPT: [facility] Surgical RECD BY: Kristan Daley ENTERED: 12/08/24 07:12 SP TYPE: Surgical OTHR DR: Jose Zhang DO Tissues: A - Nevus B - Nevus Procedures: Hematoxylin and Eosin Stain Gross and Microscopic Level 4
== END ==
LOC: ANHLAB 15:33
PROVIDERS: PCP Internal Medicine; Visit Provider Plastic Surgery
DX: D48.5 Neoplasm of uncertain behavior of skin (principal)
CPT/HCPCS: 88305

== ENCOUNTER 2025-02-09 10:54 | Outpatient (CLI) | payer OTHER, SELFPAY ==
[2025-02-09 11:42] LABS: Alanine Aminotransferase 16 U/L (6-35); Albumin Level 3.9 g/dL (3.5-5.1); Alkaline Phosphatase 83 U/L (38-126); Aspartate Amino Transferase 26 U/L (14-36); Bilirubin,Total 0.3 mg/dL (0.2-1.3); Cholesterol 172 mg/dL (0-200); HDL Direct 47 mg/dL; Total Protein 7.0 g/dL (6.3-8.2); Triglycerides 191 mg/dL (<150)
== END 2025-02-09 10:55 | disposition home or self-care (01) ==
LOC: ANHLAB 10:55
PROVIDERS: PCP Internal Medicine; Visit Provider Internal Medicine
DX: Z51.81 Encounter for therapeutic drug level monitoring (principal); E78.5 Hyperlipidemia, unspecified
CPT/HCPCS: 36415; 80061; 80076

== ENCOUNTER 2025-03-30 13:40 | Outpatient (CLI) | payer OTHER, SELFPAY ==
--- NOTE | ~2025-03-30 | XR_ITS ---
EXAMINATION: XR chest 2V, 03/30/2025 14:00 [employer]ELD [employer] WORKER HISTORY: R05.9 - Cough, unspecified X 3 MONTH, PHLEGM, HISTORY OF PNA COMPARISON: No comparisons available. Technique: 2 views obtained. Findings: The lungs are clear, no effusion. No pneumothorax. Heart is normal size. Mediastinal and hilar contours are within normal limits. Bony thorax no acute abnormality. Impression: No acute cardiopulmonary abnormality. Reviewed, dictated and finalized at location P. 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
[2025-03-30 14:49] LABS: Influenza A QL RT-PCR Negative (Negative); Influenza B QL RT-PCR Negative (Negative); RSV RNA, RT-PCR Negative (Negative); SARS-CoV-2 RNA PCR Negative (Negative)
== END 2025-03-30 13:41 | disposition home or self-care (01) ==
PROVIDERS: PCP Internal Medicine; Visit Provider Nurse Practitioner
DX: R05.9 Cough, unspecified (principal)
CPT/HCPCS: 71046; 87637